=== PATIENT | male | born 1970 | race Caucasian/White ===

== ENCOUNTER → 2017-09-27 11:42 | Outpatient (CLI) | payer MEDICAID, SELFPAY ==
[2017-09-27 12:59] LABS: Microalbumin:Creatinine Ratio 404.8 mg/g CRE (<30 mg/g CRE)
[2017-09-27 13:22] LABS: Hemoglobin A1c 8.5 % (4.2-6.3)
[2017-09-27 13:31] LABS: AST(SGOT) 13 U/L (15-37); Alanine Aminotransfer ALT/SGPT 24 U/L (16-61); Albumin, Serum 4.1 g/dL (3.2-5.0); Alkaline Phosphatase 55 U/L (45-117); Anion Gap 11 (5-15); BUN 23 mg/dL (7-18); BUN/Creat Ratio 17.8 RATIO (10-20); Calcium,Total 9.4 mg/dL (8.5-10.1); Chloride 102 mmol/L (98-107); Cholesterol 158 mg/dL (200); Creatinine, Serum 1.29 mg/dL (0.70-1.30); EST Glomerular Filtration Rate 63 mL/min (>60); Est Glom Filt Rate - Afr Amer 76 mL/min (>60); Free T3 2.7 pg/mL (2.18-3.98); Globulin 4.3 g/dL (2.2-4.2); Glucose 221 mg/dL (70-110); High Density Lipoprotein 31 mg/dL; Potassium 4.4 mmol/L (3.5-5.1); Protein, Total 8.4 g/dL (6.4-8.2); Sodium Level 137 mmol/L (136-145); T4 Free Direct 0.69 ng/dL (0.76-1.46); Thyroid Stim Hormone (TSH) 0.44 uIU/mL (0.358-3.74); Triglycerides 477 mg/dL
== END ==
PROVIDERS: Family Provider Family Medicine; PCP Family Medicine; Visit Provider Nurse Practitioner
DX: E11.65 Type 2 diabetes mellitus with hyperglycemia (principal); E05.90 Thyrotoxicosis, unspecified without thyrotoxic crisis or storm; E78.1 Pure hyperglyceridemia; E78.00 Pure hypercholesterolemia, unspecified; E29.1 Testicular hypofunction
CPT/HCPCS: 36415; 80053; 80061; 82043; 82570; 83036; 84402; 84403; 84439; 84443; 84481

== ENCOUNTER → 2017-10-17 11:18 | Outpatient (CLI) | payer MEDICAID, SELFPAY ==
[2017-10-17 14:15] LABS: Basophil# 0.01 X10^3/uL; Differential Indicated SCAN CRITERIA MET; Eosinophil# 0.12 X10^3/uL; Hematocrit 33.5 % (40-54); Hemoglobin 11.6 g/dl (13.0-16.5); Mean Corp Hgb Conc 34.6 g/gl (32-36); Mean Corpuscular Hgb 30.6 pg (27.0-32.0); Mean Corpuscular Volume 88.4 fL (80-94); Mean Platelet Vol. 10.4 fl (6.2-12.0); Monocyte# 0.36 X10^3/uL; POSITIVE COUNT NO; POSITIVE DIFFERENTIAL NO; POSITIVE MORPHOLOGY YES; Platelet Count 188 K/mm3 (150-450); RBC Distribution Width CV 13.2 % (11.6-14.6); RBC Distribution Width SD 42.5 fl (35.1-43.9); Red Blood Count 3.79 M/mm3 (4.6-6.2); White Blood Count 5.8 K/mm3 (4.4-11.0)
[2017-10-17 14:50] LABS: Eosinophil 2 % (0-5); Lymphocyte 27 % (19-41); Monocyte 3 % (0-10); Neutrophil-Segmented 68 % (47-70); Platelet Estimate ADEQUATE (ADEQ); Total Cells Counted 100 (MANUAL DIFF); Vacuolated Cells 1+
[2017-10-17 14:51] LABS: Anisocytosis 1+; Red Cell Morphology N CHROM NORMAL (NORM C&C); Scan Smear per Review Criteria MANUAL DIFF
[2017-10-17 14:53] LABS: Absolute Lymphocyte Count 1.56 X10^3/ul (0.83-4.51); Absolute Neutrophil Count 3.9 X10^3/uL (2.0-7.7)
[2017-10-18 09:15] LABS: Pathologist Review Reviewed
== END ==
PROVIDERS: Family Provider Family Medicine; PCP Family Medicine; Visit Provider Family Medicine
DX: R56.9 Unspecified convulsions (principal)
CPT/HCPCS: 36415; 85025

== ENCOUNTER → 2017-10-19 10:25 | Outpatient (CLI) | payer MEDICAID, SELFPAY ==
[2017-10-22 12:06] LABS: Testosterone, Free 4.26 ng/dL (5.00-21.00)
[2017-10-23 11:21] LABS: Testosterone, % Free 3.28 % (1.50-4.20); Testosterone, Total 130 ng/dL (264-916)
== END ==
PROVIDERS: Family Provider Family Medicine; PCP Family Medicine; Visit Provider Nurse Practitioner
DX: E29.1 Testicular hypofunction (principal)
CPT/HCPCS: 84402; 84403

== ENCOUNTER → 2018-01-15 09:47 | Outpatient (CLI) | payer MEDICAID, SELFPAY ==
[2018-01-15 09:51] LABS: Bacteria 0 SEEN /hpf (None Seen); Mucous, Urine 0 SEEN /hpf (<or=2+); Red Blood Cells-Urine 0 SEEN /hpf (0-5); Squamous Epithelial Cells - UA 0 SEEN /hpf (0-5); White Blood Cells 0 SEEN /hpf (0-5)
[2018-01-15 12:19] LABS: Color, Urine Yellow (Yellow); Glucose, Dipstick Normal (Normal); Ketone-Dipstick Negative (Negative); Leukocyte Esterase-Dipstick Negative /ul (Negative); Nitrite-Dipstick Negative (Negative); Occult Blood-Urine 10 /ul (Negative); Protein-Dipstick 30 mg/dl (Negative); Specific Gravity, Urine 1.015 (1.002-1.030); Urine Bilirubin Dipstick Negative (Negative); Urine Clarity Clear (Clear); Urine Urobilinogen Normal (Normal)
[2018-01-15 12:22] LABS: Hemoglobin 13.1 g/dl (13.0-16.5); Mean Corp Hgb Conc 35.4 g/gl (32-36); Mean Corpuscular Hgb 30.7 pg (27.0-32.0); Mean Corpuscular Volume 86.7 fL (80-94); Platelet Count 215 K/mm3 (150-450); RBC Distribution Width CV 12.8 % (11.6-14.6); RBC Distribution Width SD 39.6 fl (35.1-43.9); Red Blood Count 4.27 M/mm3 (4.6-6.2)
[2018-01-15 12:38] LABS: Scan Indicated on CBC? Y/N NO
[2018-01-15 12:42] LABS: AST(SGOT) 12 U/L (15-37); Alanine Aminotransfer ALT/SGPT 20 U/L (16-61); Albumin, Serum 4.3 g/dL (3.2-5.0); Alkaline Phosphatase 57 U/L (45-117); Anion Gap 9 (5-15); BUN 19 mg/dL (7-18); Calcium,Total 9.4 mg/dL (8.5-10.1); Chloride 103 mmol/L (98-107); Cholesterol 186 mg/dL (200); Creatinine, Serum 1.27 mg/dL (0.70-1.30); EST Glomerular Filtration Rate 64 mL/min (>60); Est Glom Filt Rate - Afr Amer 77 mL/min (>60); Globulin 4.1 g/dL (2.2-4.2); Glucose 139 mg/dL (74-106); High Density Lipoprotein 33 mg/dL; Potassium 4.5 mmol/L (3.5-5.1); Protein, Total 8.4 g/dL (6.4-8.2); Sodium Level 137 mmol/L (136-145); Triglycerides 771 mg/dL
[2018-01-15 12:50] LABS: Carbamazepine (Tegretol) 11.6 ug/mL (4.0-12.0)
== END ==
PROVIDERS: Family Provider Family Medicine; PCP Family Medicine; Visit Provider Family Medicine
DX: I10 Essential (primary) hypertension (principal); E78.1 Pure hyperglyceridemia
CPT/HCPCS: 36415; 80053; 80061; 80156; 81001; 85027

== ENCOUNTER 2018-01-17 07:44 | Outpatient (RCR) | payer MEDICAID, SELFPAY ==
--- NOTE | 2018-01-18 17:05 | HP.FCE ---
HP OT Functional Capacity Eval - Reference Duration Sedentary Sedentary Light Light Light Medium Medium Medium Heavy Very Heavy Heavy Occasional (0-33% of day) Frequent (34-66% of day) Constant (67-100% of day) 10 # Negligible Negligible 15 # 8 # Negligible 20 # 10# Negli. 35 # 18 # 7 # 50 # 25 # 10 # 75 # 100 # >100 # 38 # 50 # >50 # 15 # 20 # >20 # - Patient Information Height: 5 ft 8 in Weight:: 96.615 kg Hand Dominance: Right Handed - Medical History Medical History Including Restrictions: trigeminal neuralgia, anemia, colon polyps, depression, diabetic, cholesterol, high BP, lumbago, chronic alcoholism, chronic pancreatitis, sebaceus cysts, elbow pain (R), neuropathy bilateral feet, colon CA - Diagnoses Diagnoses: trigeminal neuralgia, anemia, colon polyps, depression, diabetic, cholesterol, high BP, lumbago, chronic alcoholism, chronic pancreatitis, sebaceus cysts, elbow pain (R), neuropathy bilateral feet, colon CA - Symptoms Symptoms: Alvarez's Palsy Symptoms, distorted in face, blurriness in eyes (left especially), numbness L side of face, pain L side face, symptoms happen more with stress or not enough sleep. gets tired from anemia, R elbow pain, gets better after he does his arm exercises. L thumb pain no movement 3/10, with movement 8/10. - Pain Pain: According to pt, when trigeminal neuralgia takes place 10/10 pain face, pt down for about a week. Pain in R elbow 2/10. L thumb pain no movement 3/10, with movement 8/10. - Work History Work History: Currently unemployed. Has not worked since 2004. 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 - ADLS ADLS: Lives with mother, 1 story house, 3 steps to enter no handrail. Independent with AMB. Tub/shower combo, HHS, glass doors to get in/out of tub/shower, comfort height commode. Has bedside commode if needed. Independent with cooking, cleaning, sweeper, dust, mows riding mower. Independent with laundry, first floor setup. Drives. Gets Groceries uses cart and states has to pace himself. - Physical Examination ROM: BUE Limited horizontal abduction shoulders 110' when completed at the same time, horizontal abduction L shoulder only WFL, R shoulder only WFL, other BUE joints WFL all planes, BLE WFL. Strength: BUE R 3+/5, L 4/5, BLE 4/5 Right Typesetting Machine Operator/Tender Strength Average: 61.66 Left Typesetting Machine Operator/Tender Strength Average: 70.00 Right Lateral Pinch Average: 14.66 Left Lateral Pinch Average: 12.66 Right Tripod Pinch Average: 12.00 Left Tripod Pinch Average: 7.33 Sensation: Pt states tingling L thumb, bilateral feet numb all the time. Fine Motor: Occassionally has difficulty with buttoning small buttons pending on how his L thumb feels. Independent with writing, self feeding, and other fine motor tasks. Balance: Pt slightly unsteady with standing balance when walking. Loss of balance when standing on one foot easily. Demonstrated good righting reactions to L and R side and forward, did have to take step back when challenged with balance pushing backwards. - Non Material Handling Activities Bending: able to complete 5 bends down to toes and up with 2 losses of balance he was able to correct on his own. Unable to complete anymore secondary to dizziness. Squatting: Pt able to complete 8 squats, shakey in knees, unable to complete any more secondary to pt stated knees are going to give out. Had to hold onto table occassionally while completing squats for support. Kneeling: Pt able to complete 7 half kneels, unable to go all the way down secondary to pain in knees, 9/10 R leg, 7/10 L leg with movement. Used table on L side to help support himself during task. Reaching out/up: Pt able to reach out and up without any loss of balance. Walking: Pt able to complete 15 minute walking test around facility slow pace, occassionally unsteady. Pt stated dizzy after walk and feet tingling like crazy. Pt states occassionally feels like R knee is unstable and gives out. Standing: No sitting required during walk test. Sitting: Pt able to sit for 33 minutes before being asked to stand for evaluation without demo of pain Climbing Stairs: Pt able to climb a flight 10 steps up/down using bilateral handrails. - Dynamic Occasional Lifting Capacity Floor Lift: completed 15# max per pt Knee Lift: completed 15# max per pt Waist Lift: completed 15# max per pt Shoulder Lift: completed 15# max per pt Overhead Lift: able to lift 15# up 90', able to lift 4# box overhead max per pt Carrying: carries 15# max 20 feet Comments: According to functional activities questionnaire pt stated no i don't exercise regularly, yes I can do yard work if I pace myself and do it over the course of the day. I can sit through a movie, play or concert, I can walk around in my yard and around the block at my own pace. I am able to shop for groceries. I am able to coarry my groceries into the hosue and pout them away. I am able to do to do laundry. No I can not walk up and down the steps. I am able to cook and do housework. I am able to bath, feed and dress myself. I can drive or ride in a car for 2-3 hrs before i need to stretch. I can walk at a mall, fair or event for 1 hr before I have to sit down. I usually sit fo 1.5 to 3 hrs a day. I ususally stand/walk for 2hrs a day. I usually lie/recline for 4/6 hrs a day. My most comfortable position is lying down.
== END 2018-01-17 19:00 | disposition home or self-care (01) ==
LOC: OT 07:44
PROVIDERS: Family Provider Family Medicine; PCP Family Medicine; Visit Provider Family Medicine
DX: E11.40 Type 2 diabetes mellitus with diabetic neuropathy, unspecified (principal)
CPT/HCPCS: 97165

== ENCOUNTER → 2018-04-24 06:55 | Outpatient (CLI) | payer MEDICAID, SELFPAY ==
[2018-04-24 07:39] LABS: Basophil# 0.02 X10^3/uL; Basophil% 0.3 % (0-1); Eosinophil# 0.09 X10^3/uL; Eosinophils% 1.3 % (0-5); Hematocrit 34.6 % (40-54); Hemoglobin 11.8 g/dl (13.0-16.5); Mean Corp Hgb Conc 34.1 g/gl (32-36); Mean Corpuscular Hgb 30.6 pg (27.0-32.0); Mean Corpuscular Volume 89.6 fL (80-94); Mean Platelet Vol. 10.2 fl (6.2-12.0); Monocyte# 0.35 X10^3/uL; Monocyte% 5.1 % (0-10); Neutrophil # 3.98 X10^3/uL (2.7-7.7); Platelet Count 221 K/mm3 (150-450); RBC Distribution Width CV 13.1 % (11.6-14.6); RBC Distribution Width SD 42.2 fl (35.1-43.9); Red Blood Count 3.86 M/mm3 (4.6-6.2); White Blood Count 6.9 K/mm3 (4.4-11.0)
[2018-04-24 07:42] LABS: POSITIVE COUNT NO; POSITIVE DIFFERENTIAL NO; POSITIVE MORPHOLOGY NO
[2018-04-24 08:00] LABS: AST(SGOT) 10 U/L (15-37); Alanine Aminotransfer ALT/SGPT 21 U/L (16-61); Albumin, Serum 3.9 g/dL (3.2-5.0); Alkaline Phosphatase 39 U/L (45-117); Anion Gap 10 (5-15); BUN 21 mg/dL (7-18); BUN/Creat Ratio 14.3 RATIO (10-20); Calcium,Total 9.2 mg/dL (8.5-10.1); Chloride 101 mmol/L (98-107); Creatinine, Serum 1.47 mg/dL (0.70-1.30); EST Glomerular Filtration Rate 54 mL/min (>60); Est Glom Filt Rate - Afr Amer 65 mL/min (>60); Glucose 299 mg/dL (74-106); Potassium 4.2 mmol/L (3.5-5.1); Protein, Total 7.9 g/dL (6.4-8.2); Sodium Level 137 mmol/L (136-145)
[2018-04-25 11:24] LABS: Carcinoembryonic Antigen 1.6 ng/mL (0.0-4.7)
== END ==
PROVIDERS: Family Provider Family Medicine; PCP Family Medicine; Visit Provider Nurse Practitioner Family
DX: D64.9 Anemia, unspecified (principal); Z85.038 Personal history of other malignant neoplasm of large intestine
CPT/HCPCS: 71260; 74177; 80053; 82378; 85025; Q9967; A4216

== ENCOUNTER → 2018-05-30 10:23 | Outpatient (CLI) | payer MEDICAID, SELFPAY ==
[2018-05-30 10:59] LABS: Absolute Lymphocyte Count 1.94 X10^3/ul (0.83-4.51); Absolute Neutrophil Count 3.6 X10^3/uL (2.0-7.7); Basophil# 0.02 X10^3/uL; Basophil% 0.3 % (0-1); Eosinophil# 0.08 X10^3/uL; Eosinophils% 1.3 % (0-5); Hematocrit 36.4 % (40-54); Hemoglobin 12.6 g/dl (13.0-16.5); Lymphocyte # 1.94 X10^3/ul (4.0); Lymphocyte % 32.3 % (19-41); Mean Corp Hgb Conc 34.6 g/gl (32-36); Mean Corpuscular Hgb 30.3 pg (27.0-32.0); Mean Corpuscular Volume 87.5 fL (80-94); Mean Platelet Vol. 9.9 fl (6.2-12.0); Monocyte# 0.38 X10^3/uL; Monocyte% 6.3 % (0-10); Neutrophil # 3.56 X10^3/uL (2.7-7.7); Neutrophil % 59.5 % (47-70); Platelet Count 175 K/mm3 (150-450); RBC Distribution Width CV 12.8 % (11.6-14.6); Red Blood Count 4.16 M/mm3 (4.6-6.2)
[2018-05-30 11:00] LABS: POSITIVE COUNT NO; POSITIVE DIFFERENTIAL NO; POSITIVE MORPHOLOGY NO
[2018-05-30 11:23] LABS: Carbamazepine (Tegretol) 11.5 ug/mL (4.0-12.0)
[2018-05-30 11:36] LABS: ALB/GLOB Ratio 0.9 RATIO (0.9-2.4); AST(SGOT) 18 U/L (15-37); Alanine Aminotransfer ALT/SGPT 32 U/L (16-61); Albumin, Serum 3.7 g/dL (3.2-5.0); Alkaline Phosphatase 38 U/L (45-117); Anion Gap 8 (5-15); BUN 22 mg/dL (7-18); BUN/Creat Ratio 16.1 RATIO (10-20); Calcium,Total 9.4 mg/dL (8.5-10.1); Chloride 101 mmol/L (98-107); Cholesterol 190 mg/dL (200); Creatinine, Serum 1.37 mg/dL (0.70-1.30); EST Glomerular Filtration Rate 59 mL/min (>60); Est Glom Filt Rate - Afr Amer 71 mL/min (>60); Glucose 212 mg/dL (74-106); High Density Lipoprotein 27 mg/dL; Potassium 4.6 mmol/L (3.5-5.1); Protein, Total 7.7 g/dL (6.4-8.2); Sodium Level 135 mmol/L (136-145); T4 Free Direct 0.72 ng/dL (0.76-1.46); Thyroid Stim Hormone (TSH) 0.44 uIU/mL (0.358-3.74); Triglycerides 1083 mg/dL
== END ==
PROVIDERS: Family Provider Family Medicine; PCP Family Medicine; Referring Provider Family Medicine; Visit Provider Family Medicine
DX: R79.89 Other specified abnormal findings of blood chemistry (principal); R56.9 Unspecified convulsions; E78.5 Hyperlipidemia, unspecified; R80.9 Proteinuria, unspecified; I10 Essential (primary) hypertension
CPT/HCPCS: 36415; 80053; 80061; 80156; 82043; 82570; 84439; 84443; 85025

== ENCOUNTER 2018-07-27 11:30 | Outpatient (RCR) | payer MEDICAID, SELFPAY | END 2018-07-27 23:59 | LOC: NS 11:30 | PROVIDERS: Family Provider Family Medicine; PCP Family Medicine; Visit Provider Nurse Practitioner | DX: E66.9 Obesity, unspecified (principal); Z68.31 Body mass index [BMI] 31.0-31.9, adult; E11.65 Type 2 diabetes mellitus with hyperglycemia; Z71.3 Dietary counseling and surveillance | CPT/HCPCS: 97803 ==

== ENCOUNTER → 2018-08-10 07:35 | Outpatient (CLI) | payer MEDICAID, SELFPAY ==
[2018-08-09 11:15] VITALS: BMI 33.3
[2018-08-10 10:38] LABS: Hemoglobin A1c 9.1 % (4.2-6.3)
[2018-08-10 10:43] LABS: AST(SGOT) 15 U/L (15-37); Alanine Aminotransfer ALT/SGPT 27 U/L (16-61); Alkaline Phosphatase 42 U/L (45-117); Anion Gap 9 (5-15); BUN 36 mg/dL (7-18); BUN/Creat Ratio 20.9 RATIO (10-20); Calcium,Total 9.5 mg/dL (8.5-10.1); Chloride 102 mmol/L (98-107); Cholesterol 114 mg/dL (200); Creatinine, Serum 1.72 mg/dL (0.70-1.30); EST Glomerular Filtration Rate 45 mL/min (>60); Est Glom Filt Rate - Afr Amer 54 mL/min (>60); Glucose 133 mg/dL (74-106); High Density Lipoprotein 35 mg/dL; Potassium 4.7 mmol/L (3.5-5.1); Sodium Level 137 mmol/L (136-145); Triglycerides 197 mg/dL; Very Low Density Lipoprotein 39 mg/dL (5-40)
[2018-08-13 10:33] LABS: Testosterone, Total > 1500 ng/dL (264-916)
--- OUTSIDE RECORDS SUMMARY | 2018-09-25 19:17 | XMS RPT_ITS ---
:1970 Author Organization OHIP Support Name Relationship Address Phone D Unavailable Unavailable Unavailable DAVID HUFFMAN Unavailable [address] + [place] [address] D Unavailable Unavailable Unavailable DAVID HUFFMAN Unavailable [address] + [place] [address] D Unavailable Unavailable Unavailable DAVID HUFFMAN Unavailable [address] + [place] [address] D Unavailable Unavailable Unavailable DAVID HUFFMAN Unavailable [address] + [place] [address] D Unavailable Unavailable Unavailable DAVID HUFFMAN Unavailable [address] + [place] [address] D Unavailable Unavailable Unavailable DAVID HUFFMAN Unavailable [address] + [place] [address] D Unavailable Unavailable Unavailable DAVID HUFFMAN Unavailable [address] + [place] [address] D Unavailable Unavailable Unavailable DAVID HUFFMAN Unavailable [address] + [place] [address] D Unavailable Unavailable Unavailable DAVID HUFFMAN Unavailable [address] + [place] [address] D Unavailable Unavailable Unavailable DAVID HUFFMAN Unavailable [address] + [place] [address] D Unavailable Unavailable Unavailable DAVID HUFFMAN Unavailable [address] + [place] [address] D Unavailable Unavailable Unavailable DAVID HUFFMAN Unavailable [address] + [place] [address] D Unavailable Unavailable Unavailable DAVID UHFFMAN Unavailable [address] + [place] [address] D Unavailable Unavailable Unavailable DAVID HUFFMAN Unavailable [address] + [place] [address] D Unavailable Unavailable Unavailable DAVID HUFFMAN Unavailable [address] + [place] [address] D Unavailable Unavailable Unavailable DAVID HUFFMAN Unavailable [address] + [place] [address] D Unavailable Unavailable Unavailable DAVID HUFFMAN Unavailable [address] + [place] [address] D Unavailable Unavailable Unavailable DAVID HUFFMAN Unavailable [address] + [place] [address] D Unavailable Unavailable Unavailable DAVID HUFFMAN Unavailable [address] + [place] [address] D Unavailable Unavailable Unavailable DAVID HUFFMAN Unavailable [address] + [place] [address] D Unavailable Unavailable Unavailable DAVID HUFFMAN Unavailable [address] + [place] [address] D Unavailable Unavailable Unavailable DAVID HUFFMAN Unavailable [address] + [place] [address] D Unavailable Unavailable Unavailable DAVID HUFFMAN Unavailable [address] + [place] [address] D Unavailable Unavailable Unavailable DAVID HUFFMAN Unavailable [address] + [place] [address] D Unavailable Unavailable Unavailable DAVID HUFFMAN Unavailable [address] + [place] [address] D Unavailable Unavailable Unavailable DAVID HUFFMAN Unavailable [address] + [place] [address] D Unavailable Unavailable Unavailable DAVID HUFFMAN Unavailable [address] + [place] [address] D Unavailable Unavailable Unavailable DAVID HUFFMAN Unavailable [address] + [place] [address] D Unavailable Unavailable Unavailable DAVID HUFFMAN Unavailable [address] + [place] [address] D Unavailable Unavailable Unavailable DAVID HUFFMAN Unavailable [address] + [place] [address] D Unavailable Unavailable Unavailable DAVID HUFFMAN Unavailable [address] + [place] [address] D Unavailable Unavailable Unavailable DAVID HUFFMAN Unavailable [address] + [place] [address] D Unavailable Unavailable Unavailable DAVID HUFFMAN Unavailable [address] + [place] [address] D Unavailable Unavailable Unavailable DAVID HUFFMAN Unavailable [address] + [place] [address] D Unavailable Unavailable Unavailable DAVID HUFFMAN Unavailable [address] + [place] [address] D Unavailable Unavailable Unavailable DAVID HUFFMAN Unavailable [address] + [place] [address] D Unavailable Unavailable Unavailable DAVID HUFFMAN Unavailable [address] + [place] [address] D Unavailable Unavailable Unavailable DAVID HUFFMAN Unavailable [address] + [place] [address] D Unavailable Unavailable Unavailable DAVID HUFFMAN Unavailable [address] + [place] [address] D Unavailable Unavailable Unavailable DAVID HUFFMAN Unavailable [address] + [place] [address] D Unavailable Unavailable Unavailable DAVID HUFFMAN Unavailable [address] + [place] [address] D Unavailable Unavailable Unavailable DAVID HUFFMAN Unavailable [address] + [place] [address] D Unavailable Unavailable Unavailable DAVID HUFFMAN Unavailable [address] + [place] [address] D Unavailable Unavailable Unavailable DAVID HUFFMAN Unavailable [address] + [place] [address] Care Team Providers Name Role Phone Scarlett RickettsC Attending Unavailable Nicolas Santos Referring Unavailable Nicolas Santos Primary Care Unavailable Scarlett Ricketts NP-C Attending Unavailable Nicolas Santos Referring Unavailable Jimmie Ibarra Attending Unavailable Chriss Zhong Primary Care Unavailable Chriss Zhong Referring Unavailable Jimmie Ibarra Attending Unavailable Nicolas Santos Primary Care Unavailable Nicolas Santos Referring Unavailable Scarlett Ricketts GLOVE PARTS INSPECTOR-C Attending Unavailable Scarlett Ricketts NP-Abram Referring Unavailable Nicolas Santos Primary Care Unavailable Shook, Scarlett J GLOVE PARTS INSPECTOR-C Attending Unavailable Nicolas Santos Referring Unavailable Scarlett Ricketts GLOVE PARTS INSPECTOR-C Attending Unavailable Nicolas Santos Referring Unavailable Nicolas Santos Attending Unavailable Nicolas Santos Referring Unavailable Nicolas Santos Primary Care Unavailable ShannanMaureen card Attending Unavailable Chriss Zhong Primary Care Unavailable Jimmie Ibarra Consulting Unavailable Scarlett Ricketts GLOVE PARTS INSPECTOR-C Attending Unavailable Chriss Zhong Primary Care Unavailable Scarlett Ricketts GLOVE PARTS INSPECTOR-C Attending Unavailable Nicolas Santos Referring Unavailable Chriss Zhong Referring Unavailable Scarlett Ricketts GLOVE PARTS INSPECTOR-C Attending Unavailable Nurse, Standard Attending Unavailable Chriss Zhong Referring Unavailable Nurse, Standard Attending Unavailable Nicolas Santos Referring Unavailable Nicolas Santos Attending Unavailable Nicolas Santos Referring Unavailable SchNicolas english Primary Care Unavailable Nicolas Santos Attending Unavailable Nicolas Santos Referring Unavailable SchNicolas english Primary Care Unavailable Scarlett Ricketts GLOVE PARTS INSPECTOR-C Attending Unavailable Scarlett Ricketts GLOVE PARTS INSPECTOR-C Attending Unavailable Nicolas Santos Referring Unavailable Nicolas Santos Primary Care Unavailable Lilian Ocasio Attending Unavailable Scarlett Ricketts NP-Abram Attending Unavailable Nicolas Santos Referring Unavailable Nurse, Standard Attending Unavailable Nicolas Santos Referring Unavailable Nurse, Standard Attending Unavailable Nicolas Santos Referring Unavailable Nurse, Standard Attending Unavailable Nicolas Santos Referring Unavailable Nurse, Standard Attending Unavailable Nicloas Santos Referring Unavailable Shannan, Maureen Attending Unavailable Maureen Campbell Referring Unavailable Nicolas Santos Primary Care Unavailable Nurse, Standard Attending Unavailable Scarlett Ricketts GLOVE PARTS INSPECTOR-C Attending Unavailable Scarlett Ricketts GLOVE PARTS INSPECTORNicole Referring Unavailable Nicolas Santos Primary Care Unavailable Scarlett Ricketts GLOVE PARTS INSPECTOR-C Attending Unavailable Nicolas Santos Referring Unavailable Scarlett Ricketts GLOVE PARTS INSPECTOR-Abram Attending Unavailable Scarlett Ricketts GLOVE PARTS INSPECTORNicole Referring Unavailable Nicolas Santos Primary Care Unavailable Nurse, Standard Attending Unavailable Chriss Zhong Referring Unavailable Scarlett Ricketts NP-C Attending Unavailable Nicolas Santos Primary Care Unavailable Nurse, Standard Attending Unavailable Chriss Zhong Referring Unavailable Jimmie Ibarra Attending Unavailable TrevinChriss Primary Care Unavailable Jimmie Ibarra Consulting Unavailable Chriss Zhong Referring Unavailable Nurse, Standard Attending Unavailable Nicolas Santos Referring Unavailable Scarlett Ricketts GLOVE PARTS INSPECTOR-C Attending Unavailable [place], Chriss Referring Unavailable Scarlett Ricketts GLOVE PARTS INSPECTOR-C Attending Unavailable Nicolas Santos Referring Unavailable SchNicolas english Attending Unavailable SchNicolas english Referring Unavailable Nicolas Santos Primary Care Unavailable Scarlett Ricketts GLOVE PARTS INSPECTOR-C Attending Unavailable [place], Chriss Referring Unavailable Nurse, Standard Attending Unavailable Trevin, Chriss Referring Unavailable Nurse, Standard Attending Unavailable Trevin, Chriss Referring Unavailable Scarlett Ricketts GLOVE PARTS INSPECTOR-C Attending Unavailable Nicolas Santos Primary Care Unavailable Nurse, Standard Attending Unavailable [place], Chriss Referring Unavailable Nurse, Standard Attending Unavailable Trevin, Chriss Referring Unavailable Scarlett Ricketts GLOVE PARTS INSPECTOR-C Attending Unavailable Nicolas Santos Primary Care Unavailable PROBLEMS PROBLEMS DATE TYPE CONDITION / CODE ATTENDING STATUS SOURCE 09/14/2018 Unknown E66.9 - Obesity, Scarlett Ricketts unspecified / GLOVE PARTS INSPECTOR-C Community E66.9(ICD-10) Hospital Repository 08/23/2018 Unknown 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 / Z85.038(ICD-10) 08/14/2018 Unknown R79.89 - Other Scarlett Ricketts specified GLOVE PARTS INSPECTOR-C Community abnormal findings [facility] blood Repository chemistry / R79.89(ICD-10) 04/24/2018 Unknown D64.9 - Anemia, Shannan, Maureen [facility] [place] unspecified / Community D64.9(ICD-10) Hospital Repository 04/24/2018 Unknown Z45.2 - Encounter Jimmie Ibarra for adjustment Community and management of Hospital vascular access Repository device / Z45.2(ICD-10) 04/25/2018 Unknown E11.40 - Type 2 Nicolas Santos diabetes mellitus E Community with diabetic Hospital neuropathy, Repository unspecified / E11.40(ICD-10) PROCEDURES PROCEDURES No Procedure Records FoundRESULTS RESULTS OFFICE VISIT REPORT Observed: 09/06/2018 Status: F Source: [place] 2:50 PM [facility] REPOSITORY [facility] 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 Accompanied by: Self Allergies erythromycin base Adverse Reaction (Severe, Verified 09/06/18 09:06) Hives loratadine [From Claritin] Adverse Reaction (Severe, Verified 09/06/18 09:06) Rash Medications Cholecalciferol (Vitamin D3) [Vitamin D3] 1,000 unit PO DAILY 10/10/13 [History Confirmed 09/06/18] Ferrous Fumarate [Iron] 18 mg PO DAILY 10/10/13 [History Confirmed 09/06/18] Lisinopril [Zestril] 20 mg PO BID 10/10/13 [History Confirmed 09/06/18] Ascorbic Acid [Vitamin C] 500 mg PO DAILY@0800 07/18/14 [History Confirmed 09/06/18] Sertraline HCl [Zoloft] 100 mg PO DAILY 07/18/14 [History Confirmed 09/06/18] Multivitamins,Therapeutic [Multivitamin] 1 tab PO DAILY 10/21/14 [History Confirmed 09/06/18] Carbamazepine [Tegretol] 400 mg PO TID 12/30/14 [History Confirmed 09/06/18] Cyanocobalamin [Vitamin B12] 500 mcg PO DAILY@0800 11/24/16 [History Confirmed 09/06/18] Rosuvastatin Calcium [Crestor] 40 mg PO DAILY 11/24/16 [History Confirmed 09/06/18] Vitamin E 1,000 unit PO DAILY 11/24/16 [History Confirmed 09/06/18] Basaglar KwikPen U-100 Insulin 100 unit/mL (3 mL) subcutaneous See Rx Instructions SC QHS #60 ml NS 10/05/17 [Rx Confirmed 09/06/18] Fenofibrate Nanocrystallized [Triglide] 160 mg PO DAILY 10/19/17 [History Confirmed 09/06/18] Humalog KwikPen (U- 100) Insulin 100 unit/mL subcutaneous 33 unit SC TID #45 ml NS 11/13/17 [Rx Confirmed 09/06/18] aripiprazole 2 mg tablet 2 mg PO QDAY 02/14/18 [History Confirmed 09/06/18] atenolol 50 mg tablet 50 mg PO BID tab 02/14/18 [History Confirmed 09/06/18] Admelog SoloStar U- 100 Insulin lispro 100 unit/mL subcutaneous pen 33 unit SC TID #90 ml NS 04/12/18 [Rx Confirmed 09/06/18] alcohol swabs 4 pad TOPICAL .daily #100 ea 04/17/18 [Rx Confirmed 09/06/18] Blood Sugar Diagnostic [FreeStyle Lite Strips] 1 strip SQ .MEDSUPPLY 05/01/18 [History Confirmed 09/06/18] Lancets 1 lancet SQ 4X/DAY 05/01/18 [History Confirmed 09/06/18] Pen Needle, Diabetic [Unifine Pentips Plus] 1 ea SQ 4X/DAY 05/01/18 [History Confirmed 09/06/18] Syringe, Disposable, 3 ml [Luer-Jurgen Syringe] 1 syringe SQ 4X/DAY 05/01/18 [History Confirmed 09/06/18] syringe with needle, safety 3 mL 25 gauge x 1 See Dose Instructions .ROUTE .MEDSUPPLY #2 ea 09/06/18 [Rx Confirmed 09/06/18] testosterone cypionate 200 mg/mL intramuscular oil 200 mg IM Q2W #1 ml 09/06/18 [Rx Confirmed 09/06/18] Office Procedures Injections testosterone cyp: Procedure performed by: Jyoti Marshall Site of injection: left gluteal IM Dose of injection: 200mg/1ml lot # [id number] exp : 08/16 mfg : hospira Comments: pt tolerated well Assessment AND Plan Medications New: syringe with needle, safety (BD Integra Syuse to inject testosterone q 2 weeks 2 ea R79.89 ringmarvin) 11RF Refilled: 09/06/18 1450 <Electronically signed by Scarlett VALENTINE> Date Scarlett VALENTINE Cosigner Signature: Date (if applicable) CC: OFFICE VISIT REPORT Observed: 09/05/2018 Status: F Source: [place] 8:27 AM [facility] [address] [address] OFFICE VISIT Date of Service: 08/23/18 MR#: [id number] Acct: [id number] Patient: REGINALDO HUFFMAN Rep #: [id number] : 1970 Provider: Standard Nurse, RN Age/Sex: 47/M [place] [facility] [place]: Signed Intake Vital Signs08/23/18 Height 5 ft 8 in 08/23/18 Weight: 207 lb 6 oz Intake Visit 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 Accompanied by: Self Allergies erythromycin base Adverse Reaction (Severe, Verified 08/14/18 11:09) Hives loratadine [From Claritin] Adverse Reaction (Severe, Verified 08/14/18 11:09) Rash Medications Cholecalciferol (Vitamin D3) [Vitamin D3] 1,000 unit PO DAILY 10/10/13 [History Confirmed 08/14/18] Ferrous Fumarate [Iron] 18 mg PO DAILY 10/10/13 [History Confirmed 08/14/18] Lisinopril [Zestril] 20 mg PO BID 10/10/13 [History Confirmed 08/14/18] Ascorbic Acid [Vitamin C] 500 mg PO DAILY@0800 07/18/14 [History Confirmed 08/14/18] Sertraline HCl [Zoloft] 100 mg PO DAILY 07/18/14 [History Confirmed 08/14/18] Multivitamins,Therapeutic [Multivitamin] 1 tab PO DAILY 10/21/14 [History Confirmed 08/14/18] Carbamazepine [Tegretol] 400 mg PO TID 12/30/14 [History Confirmed 08/14/18] Cyanocobalamin [Vitamin B12] 500 mcg PO DAILY@0800 11/24/16 [History Confirmed 08/14/18] Rosuvastatin Calcium [Crestor] 40 mg PO DAILY 11/24/16 [History Confirmed 08/14/18] Vitamin E 1,000 unit PO DAILY 11/24/16 [History Confirmed 08/14/18] Basaglar KwikPen U-100 Insulin 100 unit/mL (3 mL) subcutaneous See Rx Instructions SC QHS #60 ml NS 10/05/17 [Rx Confirmed 08/14/18] Fenofibrate Nanocrystallized [Triglide] 160 mg PO DAILY 10/19/17 [History Confirmed 08/14/18] Humalog KwikPen (U- 100) Insulin 100 unit/mL subcutaneous 33 unit SC TID #45 ml NS 11/13/17 [Rx Confirmed 08/14/18] aripiprazole 2 mg tablet 2 mg PO QDAY 02/14/18 [History Confirmed 08/14/18] atenolol 50 mg tablet 50 mg PO BID tab 02/14/18 [History Confirmed 08/14/18] Admelog SoloStar U- 100 Insulin lispro 100 unit/mL subcutaneous pen 33 unit SC TID #90 ml NS 04/12/18 [Rx Confirmed 08/14/18] alcohol swabs 4 pad TOPICAL .daily #100 ea 04/17/18 [Rx Confirmed 08/14/18] Blood Sugar Diagnostic [FreeStyle Lite Strips] 1 strip SQ .MEDSUPPLY 05/01/18 [History Confirmed 08/14/18] Lancets 1 lancet SQ 4X/DAY 05/01/18 [History Confirmed 08/14/18] Pen Needle, Diabetic [Unifine Pentips Plus] 1 ea SQ 4X/DAY 05/01/18 [History Confirmed 08/14/18] Syringe, Disposable, 3 ml [Luer-Jurgen Syringe] 1 syringe SQ 4X/DAY 05/01/18 [History Confirmed 08/14/18] testosterone cypionate 200 mg/mL intramuscular oil 200 mg IM Q2W #1 ml 06/14/18 [Rx Confirmed 08/14/18] Office Procedures Injections testosterone cyp: Procedure performed by: Jyoti Marshall Site of injection: right gluteal IM Dose of injection: 200mg/1ml lot # [id number] exp : 07/2020 mfg : hospira/pfizer Comments: pt tolerated with no c/o 09/05/18826 <Electronically signed by Scarlett VALENTINE> Date Scarlett Nugenter Signature: Date (if applicable) CC: OFFICE VISIT REPORT Observed: 08/27/2018 Status: F Source: [place] 2:19 PM [id number] [place] [address] OFFICE VISIT Date of Service: 08/09/18 MR#: [id number] Acct: [id number] Patient: REGINALDO HUFFMAN Rep #: [id number] : 1970 Provider: Alex Nurse RN Age/Sex: 47/M [place] [facility] [place]: Signed Intake Vital Signs08/09/18 Height 5 ft 8 in 08/09/18 Weight: 210 lb 2 oz 08/09/18 Body Mass Index (BMI) 31.9 08/09/18 Blood Pressure 119/82 H 08/09/18 Blood Pressure Location Rt popliteal 08/09/18 Blood Pressure Position Sitting Intake Visit 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 Accompanied by: Self Allergies erythromycin base Adverse Reaction (Severe, Verified 08/14/18 11:09) Hives loratadine [From Claritin] Adverse Reaction (Severe, Verified 08/14/18 11:09) Rash Medications Cholecalciferol (Vitamin D3) [Vitamin D3] 1,000 unit PO DAILY 10/10/13 [History Confirmed 08/14/18] Ferrous Fumarate [Iron] 18 mg PO DAILY 10/10/13 [History Confirmed 08/14/18] Lisinopril [Zestril] 20 mg PO BID 10/10/13 [History Confirmed 08/14/18] Ascorbic Acid [Vitamin C] 500 mg PO DAILY@0800 07/18/14 [History Confirmed 08/14/18] Sertraline HCl [Zoloft] 100 mg PO DAILY 07/18/14 [History Confirmed 08/14/18] Multivitamins,Therapeutic [Multivitamin] 1 tab PO DAILY 10/21/14 [History Confirmed 08/14/18] Carbamazepine [Tegretol] 400 mg PO TID 12/30/14 [History Confirmed 08/14/18] Cyanocobalamin [Vitamin B12] 500 mcg PO DAILY@0800 11/24/16 [History Confirmed 08/14/18] Rosuvastatin Calcium [Crestor] 40 mg PO DAILY 11/24/16 [History Confirmed 08/14/18] Vitamin E 1,000 unit PO DAILY 11/24/16 [History Confirmed 08/14/18] Basaglar KwikPen U-100 Insulin 100 unit/mL (3 mL) subcutaneous See Rx Instructions SC QHS #60 ml NS 10/05/17 [Rx Confirmed 08/14/18] Fenofibrate Nanocrystallized [Triglide] 160 mg PO DAILY 10/19/17 [History Confirmed 08/14/18] Humalog KwikPen (U- 100) Insulin 100 unit/mL subcutaneous 33 unit SC TID #45 ml NS 11/13/17 [Rx Confirmed 08/14/18] aripiprazole 2 mg tablet 2 mg PO QDAY 02/14/18 [History Confirmed 08/14/18] atenolol 50 mg tablet 50 mg PO BID tab 02/14/18 [History Confirmed 08/14/18] Admelog SoloStar U- 100 Insulin lispro 100 unit/mL subcutaneous pen 33 unit SC TID #90 ml NS 04/12/18 [Rx Confirmed 08/14/18] alcohol swabs 4 pad TOPICAL .daily #100 ea 04/17/18 [Rx Confirmed 08/14/18] Blood Sugar Diagnostic [FreeStyle Lite Strips] 1 strip SQ .MEDSUPPLY 05/01/18 [History Confirmed 08/14/18] Lancets 1 lancet SQ 4X/DAY 05/01/18 [History Confirmed 08/14/18] Pen Needle, Diabetic [Unifine Pentips Plus] 1 ea SQ 4X/DAY 05/01/18 [History Confirmed 08/14/18] Syringe, Disposable, 3 ml [Luer-Jurgen Syringe] 1 syringe SQ 4X/DAY 05/01/18 [History Confirmed 08/14/18] testosterone cypionate 200 mg/mL intramuscular oil 200 mg IM Q2W #1 ml 06/14/18 [Rx Confirmed 08/14/18] Office Procedures Injections testosterone cyp: Procedure performed by: Jyoti Marshall Site of injection: left gluteal IM Dose of injection: 200mg/ml lot # [id number] exp 07/2020 mfg : hospira Comments: pt tolerated well Assessment AND Plan Orders Orders: 08/27/18 1419 <Electronically signed by Scarlett VALENTINE> Date Scarlett VALENTINE Cosigner Signature: Date (if applicable) CC: VITAMIN D,25 HYDROXY Collected: 08/22/2018 Status: F Source: [place] 8:37 AM [facility] [place] REPOSITORY TYPE CODE TESTS RESULT OUT OF REFERENCE UNITS RANGE LAB L506.1000 29.95-100.01 ng/mL Low Vitamin D 16.8 25-OH Result Comment: Vitamin D 25(OH) Status Range Deficiency <20 ng/mL (50nmol/L) Insuffciency 20 - 30 ng/mL (50 - 75 nmol/L) Sufficiency 30 - 100 ng/mL (75 - 250 nmol/L) Toxicity >100 ng/mL (>250 nmol/L) Performed By: #### L506.1000 #### [facility] [place], [address] TESTOSTERONE, TOTAL / Collected: 08/22/2018 Status: F Source: [place] FREE 8:37 AM [facility] REPOSITORY Order Comment: Has Patient had X-rays with Contrast this admission? N TYPE CODE TESTS RESULT OUT OF RANGE REFERENCE UNITS LAB L3100.5320 264-916 ng/dL Normal 359 TESTOSTER,TO CASEY Result Comment: Adult male reference interval is based on a population of healthy nonobese males (BMI <30) between 19 and 39 years old. andreea Martin.al. JCEM 2017,102;1194-9640. PMID: [id number]. LAB L3100.5340 5.00-21.00 ng/dL TESTOSTER,FREE Normal 10.95 LAB L3100.5360 1.50-4.20 % TESTOSTER %FREE Normal 3.05 Result Comment: Performed at: - [facility] [address] [id number] Animal Care Attendant: Bradley Peña PhD, Phone: [phone] Performed at: - [facility] [address] [id number] Animal Care Attendant: Opal Arnold MD, Phone: [phone] Performed By: #### L3100.5310 #### [facility] (refer to report for specific site) refer to report for address and phone number ENDOCRINOLOGY VISIT Observed: 08/15/2018 Status: F Source: [place] REPORT 8:14 AM [facility] REPOSITORY [facility]. [address] [place] [address] OFFICE VISIT Date of Service: 08/14/18 MR#: [id number] Acct: [id number] Name: REGINALDO HUFFMAN Rep #: [id number] : 1970 Provider: Scarlett Ricketts NP Age/Sex: 47/M [place] [facility] [place]: Signed HPI History of present illness Reginaldo Huffman s a 47 year old male who presents for follow up of diabetes type 2, Diagnosed in 2002. Previously on U-500 insulin but reports it did not work well for him. He is currently taking Lantus 50 units in the am and 45 in the pm. Meal insulin is 25 units humalog. He brings BG written down on paper. Checking BG consistently.Recently doing well with BG readings following inclusion in why weight program and having access to [employer] for exercise. Reports he is working out 5 days weekly. BG readings currently in significantly improved range. Since our last visit he denies excessive thirst, increased frequency of urination, chest pain or dyspnea. Follows a diabetic diet, Is mostly compliant with medication and is tolerating without side effects. At time of visit: -Pt denies symptoms of hypertensive emergency (CP,SOB,DUMAS, or blurred vision) and hypotension(dizziness or lightheadedness) -Pt denies symptoms of hypoglycemia ( sweaty, confusion, anxiety, tremor, hunger, palpitations) and hyperglycemia ( polydipsia, polyuria) -Pt denies potential medication adverse effect. Hypoglycemia Aware of hypoglycemia:yes Able to self treat low BG: Yes Frequent low Blood sugar: No Has supply of glucagon: Yes Diet Usually 3 meals daily, bedtime snack Does not carb count his meals Currently feels he is binge eating again Exercise Currently5 days weekly SBMG 4 times daily BG 89-270 range with average of 159 Exam Const General: comfortable, well groomed, well hydrated Nutritional Appearance: average body habitus Orientation: oriented x3 HENMT Head: normal to inspection, normocephalic Ears: hearing grossly normal bilaterally Mouth: oral mucosae normal, moist mucous membranes Teeth and gingiva: dentition normal Eyes General: appearance normal, both eyes and all related structures Eyelids: eyelids normal Conjunctivae: conjunctivae normal Sclera: sclerae normal Pupils: PERRL Neck Neck: normal visual inspection, full ROM Resp Effort AND Inspection: normal respiratory effort, able to speak in complete sentences, symmetric chest movement Auscultation: Bilateral: Clear to Auscultation Cardio Rate: regular rate Rhythm: regular rhythm Heart Sounds: S1 normal, S2 normal GI Inspection: normal to inspection Auscultation: normal bowel sounds Palpation: soft, no guarding Musc Thoracic/Lumbar Spine: thoracic and lumbar spine normal to inspection Skin General: no rashes or lesions noted Wounds: no wounds Diabetic Foot Pulses: L dorsalis pedis pulse: normal, R dorsalis pedis pulse: normal Monofilament test: Left foot: abnormal, Right foot: abnormal Neuro General: moves all extremities, normal light touch, pain and propioception Cognition: normal cognition Speech: speech normal Gait: normal gait Extrem General: normal to inspection, normal capillary refill Psych Appearance: well kempt Mental Status: mental status grossly normal Mood: congruent mood Affect: normal affect Speech and Movement: speech and movement normal Thought Process: normal Thought Content: normal Judgment: judgment good Type: type 2, insulin-requiring Weight and fatigue symptoms: Reports weight loss; denies snoring Cardiopulmonary symptoms: Denies chest pain at rest, dyspnea on exertion, lightheadedness or myalgias GI symptoms: Reports diarrhea; denies constipation, nausea/dyspepsia or vomiting Skin and extremity symptoms: Reports tingling/numbness/burning; denies erectile dysfunction Other symptoms: Denies blurry vision or change in vision Pertinent visit history: Denies recent visit to ER, recent hospital admission or recent 911 calls Self monitoring: Yes Percentage of fasting blood glucose within goal: >50% of the time Dietary compliance: Diabetes: good Diabetes education in past year: Yes Glucose testing: demonstrates correct use of meter, understands testing schedule Sick day education - understands ketone testing: Yes Physical activity: regular Intake Vital Signs08/14/18 Height 5 ft 8 in 08/14/18 Weight: 208 lb 8 oz 08/14/18 Body Mass Index (BMI) 31.6 08/14/18 Blood Pressure 138/89 H 08/14/18 Blood Pressure Location Lt popliteal 08/14/18 Blood Pressure Position Sitting Intake Visit Reasons: Diabetes follow-up 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 Accompanied by: Self Allergies erythromycin base Adverse Reaction (Severe, Verified 08/14/18 11:09) Hives loratadine [From Claritin] Adverse Reaction (Severe, Verified 08/14/18 11:09) Rash Medications Cholecalciferol (Vitamin D3) [Vitamin D3] 1,000 unit PO DAILY 10/10/13 [History Confirmed 08/14/18] Ferrous Fumarate [Iron] 18 mg PO DAILY 10/10/13 [History Confirmed 08/14/18] Lisinopril [Zestril] 20 mg PO BID 10/10/13 [History Confirmed 08/14/18] Ascorbic Acid [Vitamin C] 500 mg PO DAILY@0800 07/18/14 [History Confirmed 08/14/18] Sertraline HCl [Zoloft] 100 mg PO DAILY 07/18/14 [History Confirmed 08/14/18] Multivitamins,Therapeutic [Multivitamin] 1 tab PO DAILY 10/21/14 [History Confirmed 08/14/18] Carbamazepine [Tegretol] 400 mg PO TID 12/30/14 [History Confirmed 08/14/18] Cyanocobalamin [Vitamin B12] 500 mcg PO DAILY@0800 11/24/16 [History Confirmed 08/14/18] Rosuvastatin Calcium [Crestor] 40 mg PO DAILY 11/24/16 [History Confirmed 08/14/18] Vitamin E 1,000 unit PO DAILY 11/24/16 [History Confirmed 08/14/18] Charisseaglrogers Mancini U-100 Insulin 100 unit/mL (3 mL) subcutaneous See Rx Instructions SC QHS #60 ml NS 10/05/17 [Rx Confirmed 08/14/18] Fenofibrate Nanocrystallized [Triglide] 160 mg PO DAILY 10/19/17 [History Confirmed 08/14/18] Humalog KwikPen (U- 100) Insulin 100 unit/mL subcutaneous 33 unit SC TID #45 ml NS 11/13/17 [Rx Confirmed 08/14/18] aripiprazole 2 mg tablet 2 mg PO QDAY 02/14/18 [History Confirmed 08/14/18] atenolol 50 mg tablet 50 mg PO BID tab 02/14/18 [History Confirmed 08/14/18] Admelog SoloStar U- 100 Insulin lispro 100 unit/mL subcutaneous pen 33 unit SC TID #90 ml NS 04/12/18 [Rx Confirmed 08/14/18] alcohol swabs 4 pad TOPICAL .daily #100 ea 04/17/18 [Rx Confirmed 08/14/18] Blood Sugar Diagnostic [FreeStyle Lite Strips] 1 strip SQ .MEDSUPPLY 05/01/18 [History Confirmed 08/14/18] Lancets 1 lancet SQ 4X/DAY 05/01/18 [History Confirmed 08/14/18] Pen Needle, Diabetic [Unifine Pentips Plus] 1 ea SQ 4X/DAY 05/01/18 [History Confirmed 08/14/18] Syringe, Disposable, 3 ml [Luer-Jurgen Syringe] 1 syringe SQ 4X/DAY 05/01/18 [History Confirmed 08/14/18] testosterone cypionate 200 mg/mL intramuscular oil 200 mg IM Q2W #1 ml 06/14/18 [Rx Confirmed 08/14/18] Nurse's Note: blood sugars : low : 89 high : 268 PFSH Medical History Anemia (Acute) Asthma (Acute) Cancer (Acute) Carpal tunnel syndrome (Acute) Depressive disorder (Acute) Diabetes type 2, controlled (Acute) GERD (gastroesophageal reflux disease) (Acute) Hepatitis C (Acute) High cholesterol (Acute) History of alcohol abuse (Acute) Hypoglycemia (Acute) Neuropathy (Acute) Obesity (Acute) Pancreatitis (Acute) Seizure disorder (Acute) portacath placement (Acute) HTN (hypertension) (Chronic) Surgical History H/O left hemicolectomy (Acute) Hx of appendectomy (Acute) Family History Grandmother Cervical cancer Diabetes Hypertension Mother Uterine cancer Arthritis Diabetes Hypertension Grandfather Heart disease Arthritis Diabetes Hypertension Unknown Diabetes Arthritis Father Arthritis Diabetes Hypertension Sister Diabetes Hypertension Social History Smoking Status: Former smoker second hand exposure: No alcohol intake: current substance use type: does not use ROS Const Constitutional: Positive for chills; no anorexia, body ache, fatigue, fever(s), frequent falls, decreased energy, malaise, night sweats, weakness, weight change, sleep problems, abnormal sleep pattern, change in appetite, other, headache(s), snoring or excessive sweating Eyes Eyes: No blurry vision, change in vision, double vision, discharge, dry eyes, bulging eyes, floaters, visual disturbances, eye pain, light sensitivity, spots in vision, tunnel vision or other ENT ENT: Positive for nasal congestion and nasal discharge; no abnormal hearing, ear pain, ear discharge, ear pressure, hearing loss, tinnitus, dizziness/vertigo, balance problems, nosebleed/epistaxis, nasal obstruction, nose pain, sinus pressure, sinus pain, post nasal drip, headache(s), facial pain, dental pain, dry mouth, bad breath, hoarseness, lip swelling, mouth lesions, mouth pain, sore throat, tongue swelling, throat swelling, other, difficulty swallowing or neck pain Resp Respiratory: Positive for cough; no change in phlegm color, chest congestion, excessive phlegm production, hemoptysis, pain on inspiration, shortness of breath, pain with cough, snoring, stridor, wheezing or other Cardio Cardiology: Positive for generalized swelling; no chest pain at rest, chest pain with exertion, leg pain with exertion, excessive sweating, shortness of breath, dyspnea on exertion, irregular heart rhythm, lightheadedness, orthopnea, radiating jaw, neck or arm pain, fast heart rate, slow heart rate, palpitations or other Gastro GI: Positive for diarrhea; no abdominal pain, belching, bloating, change in bowel habits, change in stool character, coffee ground emesis, constipation, cramping, heartburn, difficulty swallowing, feeling full early, excessive flatus, incontinent of stools, Vomiting blood/hematemesis, blood in stool, loose stools, Black,tarry stools, nausea/dyspepsia, pain with swallowing, vomiting or other Genitourinary Male: No difficulty urinating, burning urination, painful urination, urinary incontinence, urinary frequency, urinary urgency, urinary hesitancy, urinary retention, blood in urine, Frequent nighttime urination/ nocturia, post void dribbling, suprapubic fullness, side pain, sexual problems, genital lesions, genital itching, erectile dysfunction, penile discharge, difficulty with ejaculations, blood in semen, scrotal swelling, testicle lump, testicle pain or other Musc Musculoskeletal: No abnormal walking, joint pain, back pain, deformity, joint swelling, limited range of motion, loss of height, muscle cramps, muscle weakness, decreased muscle mass, body aches, neck pain, numbness, radiating pain into limb, stiffness, tingling or other Skin Skin: No acne, hair loss, change in hair, nail changes, boil, change in skin color, dry skin, redness, excessive hair growth, yellowing of the skin, lesions, itching, rash, skin pain, skin ulcer, sores, skin swelling, wounds or other Breast Breast: No other Neuro Neurology: No frequent falls, weakness, visual disturbances, abnormal hearing, headache(s), abnormal walking, numbness or tingling Psych Psychiatric: No abnormal sleep pattern, No change in appetite Endo Endocrine: No fatigue, other or excessive sweating Aller/Imm Allergy/Immunologic: No lip swelling, tongue swelling, throat swelling, wheezing or itchy eyes Assessment AND Plan 1. Uncontrolled type 2 diabetes mellitus with hyperglycemia E11.65 Plan BG readings signficantly improved this review. Reports less depression, sleeping better. BG readings checked 4 times daily. Tri now in normal range. Reviewed lab reports with patient Patient Instructions Continue to titrate insulin down as needed to avoid low BG. Labs as ordered. Orders Orders: 2. Low testosterone in male R79.89 Plan Patient inadvertently checked his testosterone levels the day after his injection of testosterone was given. This will need to be rechecked. Lab given On statin and tolerating well. Tri improved significantly On maciej inhibitor. Continues on vitamin D replacement. Lab ordered. Orders Orders: 3. Essential hypertension I10 Plan BP improved. Recheck of initial BP 128/78 Reports taking medication as directed. On lisinopril Plan Detail Additional Comments 1. Please schedule follow up in 3 months. 2. Lab work one week before appointment. 3. Discussed importance of regular exercise and recommend starting or continuing a regular exercise program for good health. 4. The patient was encouraged to lose weight for good health 5. The importance of monitoring blood sugar regularly was reviewed. 6. The importance of monitoring the HBA1c level regularly was reviewed. 7. The importance of prper foot care and regularly checking feet to prevent sores and loss of limbs was reviewed. 8. The importance of keeping BP at or below 130/80 to prevent stroke, heart attacks, kidney failure, blindness was reviewed. Spent approximately 30 minutes with patient with over 50% of time spent in discussion and counseling regarding medication adjustment, symptoms and treatment of hypoglycemia, diet adherence, and checking BG before driving. Coding Level of Care Code Off vis,est,level 4 Diagnoses Uncontrolled type 2 diabetes mellitus with hyperglycemia E11.65 Glycemic state: with hyperglycemia Low testosterone in male R79.89 Essential hypertension I10 Hypertension type: essential hypertension 08/15/18 0814 <Electronically signed by Scarlett VALENTINE> Date Scarlett VALENTINE Cosigner Signature: Date (if applicable) CC: HEMOGLOBIN A1C Collected: 08/10/2018 Status: F Source: [facility] 7:38 AM [facility] [place] REPOSITORY TYPE CODE TESTS RESULT OUT OF RANGE REFERENCE UNITS LAB L501.9985 4.2-6.3 % High HGB A1C 9.1 Performed By: #### L501.9985 #### [facility] [address] [place], [address] COMPREHENSIVE METABOLIC Collected: 08/10/2018 Status: F Source: [facility] 7:38 AM [facility] REPOSITORY TYPE CODE TESTS RESULT OUT OF RANGE REFERENCE UNITS LAB L501.0100 74-106 mg/dL High GLU 133 Result Comment: Fasting Glucose result greater than or equal to 126 mg/dL suggests DIABETES MELLITUS per A.D.A. criteria. Please note revised GLUCOSE reference range effective 2017. LAB L501.1000 7-18 mg/dL High BUN 36 LAB L501.1100 0.70-1.30 mg/dL High CREAT,SERUM 1.72 Result Comment: The validity of the calculated GFR AND GFRAA in patients over 70 years has not been determined. Clinical correlation is essential. LAB L501.1110 >60 mL/min Low EST GFR 45 Result Comment: Non- GFR Calc LAB L501.1115 >60 mL/min Low EST GFR - AA 54 Result Comment: GFR Calc LAB L501.1300 10-20 RATIO High BUN/CRE 20.9 LAB L501.1500 6.4-8.2 g/dL T Normal PROT 8.0 LAB L501.1800 3.2-5.0 g/dL Normal ALB 4.0 LAB L501.1950 2.2-4.2 g/dL Normal GLOB 4.0 LAB L501.2000 0.9-2.4 RATIO Normal A/G 1.0 LAB L501.2200 8.5-10.1 mg/dL CA Normal 9.5 LAB L501.4100 15-37 U/L Normal AST 15 LAB L501.4305 45-117 U/L Low ALK P 42 LAB L501.4405 16-61 U/L Normal ALT 27 LAB L501.4600 0.20-1.00 mg/dL T Normal BILI 0.40 LAB L501.5300 136-145 mmol/L NA Normal 137 LAB L501.5600 3.5-5.1 mmol/L K Normal 4.7 LAB L501.5900 98-107 mmol/L CL Normal 102 LAB L501.6100 21.0-32.0 mmol/L Normal CO2 26.0 LAB L501.6200 5-15 Normal GAP 9 Performed By: #### L500.4050, L500.4100 #### [facility] [address] [place], [place], [address] LIPID PROFILE Collected: 08/10/2018 Status: F Source: [place] 7:38 AM [facility] REPOSITORY TYPE CODE TESTS RESULT OUT OF RANGE REFERENCE UNITS LAB L501.4900 200 mg/dL Normal CHOL 114 Result Comment: <200 mg/dL Desirable 200-240 mg/dL Borderline >240 mg/dL High Risk LAB L501.5000 mg/dL Normal TRIG 197 Result Comment: The drugs N-Acetylcysteine and Metamizole may falsely depress this assay. Serum Triglycerides Reference Interval Normal <150 mg/dL Borderline high 150 - 199 mg/dL High 200 - 499 mg/dL Very High > or = 500 mg/dL LAB L501.6400 mg/dL Low HDL 35 Result Comment: The drugs N-Acetylcysteine and Metamizole may falsely depress this assay. Reference Range HDL <40 mg/dL Low HDL Cholesterol HDL >or= 60 mg/dL High HDL Cholesterol LAB L501.6500 0-130 mg/dL Normal LDL 40 LAB L501.6600 5-40 mg/dL Normal VLDL 39 Performed By: #### L500.4050, L500.4100 #### [facility] [address] [place], [address] MICROALBUMIN,RANDOM URINE Collected: Status: F Source: [place] 08/10/2018 7:38 AM [facility] REPOSITORY TYPE CODE TESTS RESULT OUT OF RANGE REFERENCE UNITS LAB L502.0500 NO RANGE EST. mg/L Normal 590.0 MICROALBUMIN ,UR Performed By: #### L502.0500 #### [facility] [address] [facility] [place], [address] TESTOSTERONE, TOTAL / Collected: 08/10/2018 Status: F Source: [facility] 7:38 AM [facility] REPOSITORY Order Comment: Has Patient had X-rays with Contrast this admission? N TYPE CODE TESTS RESULT OUT OF RANGE REFERENCE UNITS LAB L3100.5320 264-916 ng/dL High > 1500 TESTOSTER,TO CASEY Result Comment: Adult male reference interval is based on a population of healthy nonobese males (BMI <30) between 19 and 39 years old. Veronica et.al. JCEM 2017,102;0419-1924. PMID: [id number]. LAB L3100.5340 5.00-21.00 ng/dL TESTOSTER,FREE High > 55.50 LAB L3100.5360 1.50-4.20 % TESTOSTER %FREE Normal 3.70 Result Comment: Performed at: [address] [id number] Animal Care Attendant: Bradley Peña PhD, Phone: [phone] Performed at: - [facility] [id number] Animal Care Attendant: Opal Arnold MD, Phone: [phone] Performed By: #### L3100.5310 #### [facility] (refer to report for specific site) refer to report for address and phone number OFFICE VISIT REPORT Observed: 08/01/2018 Status: F Source: [place] 11:10 AM [place] [address] [place] [address] OFFICE VISIT Date of Service: 03/01/18 MR#: [id number] Acct: [id number] Patient: REGINALDO HUFFMAN Rep #: [id number] : 1970 Provider: Alex Nurse RN Age/Sex: 47/M [place] [facility] [place] Status: Signed Intake Vital Signs03/01/18 Height 5 ft 8 in 03/01/18 Weight: 218 lb 8 oz 03/01/18 Body Mass Index (BMI) 33.2 03/01/18 Blood Pressure 147/85 H 03/01/18 Blood Pressure Location Lt popliteal 03/01/18 Blood Pressure Position Sitting Intake Visit 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 Accompanied by: Self Is patient in pain?: No Allergies erythromycin base Adverse Reaction (Severe, Verified 05/22/18 11:18) Hives loratadine [From Claritin] Adverse Reaction (Severe, Verified 05/22/18 11:18) Rash Medications Cholecalciferol (Vitamin D3) [Vitamin D3] 1,000 unit PO DAILY 10/10/13 [History Confirmed 05/22/18] Ferrous Fumarate [Iron] 18 mg PO DAILY 10/10/13 [History Confirmed 05/22/18] Lisinopril [Zestril] 20 mg PO BID 10/10/13 [History Confirmed 05/22/18] Ascorbic Acid [Vitamin C] 500 mg PO DAILY@0800 07/18/14 [History Confirmed 05/22/18] Sertraline HCl [Zoloft] 100 mg PO DAILY 07/18/14 [History Confirmed 05/22/18] Multivitamins,Therapeutic [Multivitamin] 1 tab PO DAILY 10/21/14 [History Confirmed 05/22/18] Carbamazepine [Tegretol] 400 mg PO TID 12/30/14 [History Confirmed 05/22/18] Cyanocobalamin [Vitamin B12] 500 mcg PO DAILY@0800 11/24/16 [History Confirmed 05/22/18] Rosuvastatin Calcium [Crestor] 40 mg PO DAILY 11/24/16 [History Confirmed 05/22/18] Vitamin E 1,000 unit PO DAILY 11/24/16 [History Confirmed 05/22/18] Basaglar KwikPen U-100 Insulin 100 unit/mL (3 mL) subcutaneous See Rx Instructions SC QHS #60 ml NS 10/05/17 [Rx Confirmed 05/22/18] Fenofibrate Nanocrystallized [Triglide] 160 mg PO DAILY 10/19/17 [History Confirmed 05/22/18] Humalog KwikPen (U- 100) Insulin 100 unit/mL subcutaneous 33 unit SC TID #45 ml NS 11/13/17 [Rx Confirmed 05/22/18] aripiprazole 2 mg tablet 2 mg PO QDAY 02/14/18 [History Confirmed 05/22/18] atenolol 50 mg tablet 50 mg PO BID tab 02/14/18 [History Confirmed 05/22/18] Admelog SoloStar U- 100 Insulin lispro 100 unit/mL subcutaneous pen 33 unit SC TID #90 ml NS 04/12/18 [Rx Confirmed 05/22/18] alcohol swabs 4 pad TOPICAL .daily #100 ea 04/17/18 [Rx Confirmed 05/22/18] Blood Sugar Diagnostic [FreeStyle Lite Strips] 1 strip SQ .MEDSUPPLY 05/01/18 [History Confirmed 05/22/18] Lancets 1 lancet SQ 4X/DAY 05/01/18 [History Confirmed 05/22/18] Pen Needle, Diabetic [Unifine Pentips Plus] 1 ea SQ 4X/DAY 05/01/18 [History Confirmed 05/22/18] Syringe, Disposable, 3 ml [Luer-Jurgen Syringe] 1 syringe SQ 4X/DAY 05/01/18 [History Confirmed 05/22/18] testosterone cypionate 200 mg/mL intramuscular oil 200 mg IM Q2W #1 ml 06/14/18 [Rx Confirmed 06/14/18] Assessment AND Plan Medications Discontinued: lancets Discontinued Reason: Order edited - Discontinuing origiAs directed 50 ea 11RF nal order Supplemental Info Testosterone cypionate injection, 1ml Lot # [id number] Exp 02/2020 Mfg Hospira given in R side pt tolerated with no c/o 08/01/18 1110 <Electronically signed by Scarlett VALENTINE> Date Scarlett VALENTINE Cosigner Signature: Date (if applicable) CC: OFFICE VISIT REPORT Observed: 08/01/2018 Status: F Source: [place] 11:[address] [place] [address] OFFICE VISIT Date of Service: 07/26/18 MR#: [id number] Acct: [id number] Patient: REGINALDO HUFFMAN Rep #: [id number] : 1970 Provider: Standard Nurse, RN Age/Sex: 47/M Location: [facility] Status: Signed Intake Vital Signs07/26/18 Height 5 ft 8 in 07/26/18 Weight: 220 lb 2 oz Intake Visit 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 Accompanied by: Self Allergies erythromycin base Adverse Reaction (Severe, Verified 05/22/18 11:18) Hives loratadine [From Claritin] Adverse Reaction (Severe, Verified 05/22/18 11:18) Rash Medications Cholecalciferol (Vitamin D3) [Vitamin D3] 1,000 unit PO DAILY 10/10/13 [History Confirmed 05/22/18] Ferrous Fumarate [Iron] 18 mg PO DAILY 10/10/13 [History Confirmed 05/22/18] Lisinopril [Zestril] 20 mg PO BID 10/10/13 [History Confirmed 05/22/18] Ascorbic Acid [Vitamin C] 500 mg PO DAILY@0800 07/18/14 [History Confirmed 05/22/18] Sertraline HCl [Zoloft] 100 mg PO DAILY 07/18/14 [History Confirmed 05/22/18] Multivitamins,Therapeutic [Multivitamin] 1 tab PO DAILY 10/21/14 [History Confirmed 05/22/18] Carbamazepine [Tegretol] 400 mg PO TID 12/30/14 [History Confirmed 05/22/18] Cyanocobalamin [Vitamin B12] 500 mcg PO DAILY@0800 11/24/16 [History Confirmed 05/22/18] Rosuvastatin Calcium [Crestor] 40 mg PO DAILY 11/24/16 [History Confirmed 05/22/18] Vitamin E 1,000 unit PO DAILY 11/24/16 [History Confirmed 05/22/18] Basaglar KwikPen U-100 Insulin 100 unit/mL (3 mL) subcutaneous See Rx Instructions SC QHS #60 ml NS 10/05/17 [Rx Confirmed 05/22/18] Fenofibrate Nanocrystallized [Triglide] 160 mg PO DAILY 10/19/17 [History Confirmed 05/22/18] Humalog KwikPen (U- 100) Insulin 100 unit/mL subcutaneous 33 unit SC TID #45 ml NS 11/13/17 [Rx Confirmed 05/22/18] aripiprazole 2 mg tablet 2 mg PO QDAY 02/14/18 [History Confirmed 05/22/18] atenolol 50 mg tablet 50 mg PO BID tab 02/14/18 [History Confirmed 05/22/18] Admelog SoloStar U- 100 Insulin lispro 100 unit/mL subcutaneous pen 33 unit SC TID #90 ml NS 04/12/18 [Rx Confirmed 05/22/18] alcohol swabs 4 pad TOPICAL .daily #100 ea 04/17/18 [Rx Confirmed 05/22/18] Blood Sugar Diagnostic [FreeStyle Lite Strips] 1 strip SQ .MEDSUPPLY 05/01/18 [History Confirmed 05/22/18] Lancets 1 lancet SQ 4X/DAY 05/01/18 [History Confirmed 05/22/18] Pen Needle, Diabetic [Unifine Pentips Plus] 1 ea SQ 4X/DAY 05/01/18 [History Confirmed 05/22/18] Syringe, Disposable, 3 ml [Luer-Jurgen Syringe] 1 syringe SQ 4X/DAY 05/01/18 [History Confirmed 05/22/18] testosterone cypionate 200 mg/mL intramuscular oil 200 mg IM Q2W #1 ml 06/14/18 [Rx Confirmed 06/14/18] Office Procedures Injections testosterone cyp: Procedure performed by: Jyoti Marshall Site of injection: right gluteal IM Dose of injection: 200mg/1ml Comments: lot # [id number] exp : 08/16 mfg :hospira 08/01/18 1107 <Electronically signed by Scarlett VALENTINE> Date Scarlett VALENTINE Cosigner Signature: Date (if applicable) CC: OFFICE VISIT REPORT Observed: 07/14/2018 Status: F Source: [place] 7:[address] [place] [address] OFFICE VISIT Date of Service: 06/28/18 MR#: [id number] Acct: [id number] Patient: REGINALDO HUFFMAN Rep #: [id number] : 1970 Provider: Alex Bedoya RN Age/Sex: 47/M Location[place] [facility] [place] Status: Signed Intake Vital Signs06/28/18 Height 5 ft 10 in 06/28/18 Weight: 219 lb 4 oz 06/28/18 Body Mass Index (BMI) 31.4 06/28/18 Blood Pressure 171/98 H 06/28/18 Blood Pressure Location Rt popliteal 06/28/18 Blood Pressure Position Sitting Intake Visit 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 Accompanied by: Self Allergies erythromycin base Adverse Reaction (Severe, Verified 05/22/18 11:18) Hives loratadine [From Claritin] Adverse Reaction (Severe, Verified 05/22/18 11:18) Rash Medications Cholecalciferol (Vitamin D3) [Vitamin D3] 1,000 unit PO DAILY 10/10/13 [History Confirmed 05/22/18] Ferrous Fumarate [Iron] 18 mg PO DAILY 10/10/13 [History Confirmed 05/22/18] Lisinopril [Zestril] 20 mg PO BID 10/10/13 [History Confirmed 05/22/18] Ascorbic Acid [Vitamin C] 500 mg PO DAILY@0800 07/18/14 [History Confirmed 05/22/18] Sertraline HCl [Zoloft] 100 mg PO DAILY 07/18/14 [History Confirmed 05/22/18] Multivitamins,Therapeutic [Multivitamin] 1 tab PO DAILY 10/21/14 [History Confirmed 05/22/18] Carbamazepine [Tegretol] 400 mg PO TID 12/30/14 [History Confirmed 05/22/18] Cyanocobalamin [Vitamin B12] 500 mcg PO DAILY@0800 11/24/16 [History Confirmed 05/22/18] Rosuvastatin Calcium [Crestor] 40 mg PO DAILY 11/24/16 [History Confirmed 05/22/18] Vitamin E 1,000 unit PO DAILY 11/24/16 [History Confirmed 05/22/18] Basaglar KwikPen U-100 Insulin 100 unit/mL (3 mL) subcutaneous See Rx Instructions SC QHS #60 ml NS 10/05/17 [Rx Confirmed 05/22/18] Fenofibrate Nanocrystallized [Triglide] 160 mg PO DAILY 10/19/17 [History Confirmed 05/22/18] Humalog KwikPen (U- 100) Insulin 100 unit/mL subcutaneous 33 unit SC TID #45 ml NS 11/13/17 [Rx Confirmed 05/22/18] aripiprazole 2 mg tablet 2 mg PO QDAY 02/14/18 [History Confirmed 05/22/18] atenolol 50 mg tablet 50 mg PO BID tab 02/14/18 [History Confirmed 05/22/18] Admelog SoloStar U- 100 Insulin lispro 100 unit/mL subcutaneous pen 33 unit SC TID #90 ml NS 04/12/18 [Rx Confirmed 05/22/18] alcohol swabs 4 pad TOPICAL .daily #100 ea 04/17/18 [Rx Confirmed 05/22/18] Blood Sugar Diagnostic [FreeStyle Lite Strips] 1 strip SQ .MEDSUPPLY 05/01/18 [History Confirmed 05/22/18] Lancets 1 lancet SQ 4X/DAY 05/01/18 [History Confirmed 05/22/18] Pen Needle, Diabetic [Unifine Pentips Plus] 1 ea SQ 4X/DAY 05/01/18 [History Confirmed 05/22/18] Syringe, Disposable, 3 ml [Luer-Jurgen Syringe] 1 syringe SQ 4X/DAY 05/01/18 [History Confirmed 05/22/18] testosterone cypionate 200 mg/mL intramuscular oil 200 mg IM Q2W #1 ml 06/14/18 [Rx Confirmed 06/14/18] Office Procedures Injections Depo-Testosterone: Procedure performed by: fabby Site of injection: right gluteal IM Dose of injection: 200mg/1ml lot # [id number] exp 07/2020 mfg : hospira 07/14/181956 <Electronically signed by Scarlett VALENTINE> Date Scarlett VALENTINE Cosigner Signature: Date (if applicable) CC: OFFICE VISIT REPORT Observed: 07/14/2018 Status: F Source: [place] 7:57 PM [address] [place] [address] OFFICE VISIT Date of Service: 07/12/18 MR#: [id number] Acct: [id number] Patient: REGINALDO HUFFMAN Mauricio Rep #: [id number] : 1970 Provider: Standard Nurse, RN Age/Sex: 47/M [place] [facility] [place]: Signed Intake Vital Signs07/12/18 Height 5 ft 8 in 07/12/18 Weight: 219 lb 6 oz 07/12/18 Body Mass Index (BMI) 33.3 07/12/18 Blood Pressure 119/78 07/12/18 Blood Pressure Location Rt popliteal 07/12/18 Blood Pressure Position Sitting Intake Visit 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 Accompanied by: Self Allergies erythromycin base Adverse Reaction (Severe, Verified 05/22/18 11:18) Hives loratadine [From Claritin] Adverse Reaction (Severe, Verified 05/22/18 11:18) Rash Medications Cholecalciferol (Vitamin D3) [Vitamin D3] 1,000 unit PO DAILY 10/10/13 [History Confirmed 05/22/18] Ferrous Fumarate [Iron] 18 mg PO DAILY 10/10/13 [History Confirmed 05/22/18] Lisinopril [Zestril] 20 mg PO BID 10/10/13 [History Confirmed 05/22/18] Ascorbic Acid [Vitamin C] 500 mg PO DAILY@0800 07/18/14 [History Confirmed 05/22/18] Sertraline HCl [Zoloft] 100 mg PO DAILY 07/18/14 [History Confirmed 05/22/18] Multivitamins,Therapeutic [Multivitamin] 1 tab PO DAILY 10/21/14 [History Confirmed 05/22/18] Carbamazepine [Tegretol] 400 mg PO TID 12/30/14 [History Confirmed 05/22/18] Cyanocobalamin [Vitamin B12] 500 mcg PO DAILY@0800 11/24/16 [History Confirmed 05/22/18] Rosuvastatin Calcium [Crestor] 40 mg PO DAILY 11/24/16 [History Confirmed 05/22/18] Vitamin E 1,000 unit PO DAILY 11/24/16 [History Confirmed 05/22/18] Basaglar KwikPen U-100 Insulin 100 unit/mL (3 mL) subcutaneous See Rx Instructions SC QHS #60 ml NS 10/05/17 [Rx Confirmed 05/22/18] Fenofibrate Nanocrystallized [Triglide] 160 mg PO DAILY 10/19/17 [History Confirmed 05/22/18] Humalog KwikPen (U- 100) Insulin 100 unit/mL subcutaneous 33 unit SC TID #45 ml NS 11/13/17 [Rx Confirmed 05/22/18] aripiprazole 2 mg tablet 2 mg PO QDAY 02/14/18 [History Confirmed 05/22/18] atenolol 50 mg tablet 50 mg PO BID tab 02/14/18 [History Confirmed 05/22/18] Admelog SoloStar U- 100 Insulin lispro 100 unit/mL subcutaneous pen 33 unit SC TID #90 ml NS 04/12/18 [Rx Confirmed 05/22/18] alcohol swabs 4 pad TOPICAL .daily #100 ea 04/17/18 [Rx Confirmed 05/22/18] Blood Sugar Diagnostic [FreeStyle Lite Strips] 1 strip SQ .MEDSUPPLY 05/01/18 [History Confirmed 05/22/18] Lancets 1 lancet SQ 4X/DAY 05/01/18 [History Confirmed 05/22/18] Pen Needle, Diabetic [Unifine Pentips Plus] 1 ea SQ 4X/DAY 05/01/18 [History Confirmed 05/22/18] Syringe, Disposable, 3 ml [Luer-Jurgen Syringe] 1 syringe SQ 4X/DAY 05/01/18 [History Confirmed 05/22/18] testosterone cypionate 200 mg/mL intramuscular oil 200 mg IM Q2W #1 ml 06/14/18 [Rx Confirmed 06/14/18] Office Procedures Injections testosterone cyp: Procedure performed by: Jyoti Marshall Site of injection: left gluteal IM Dose of injection: 200mg/1ml lot # [id number] exp : 08/16 mfg : hospira Comments: pt tolerated well 07/14/181956 <Electronically signed by Scarlett VALENTINE> Date Scarlett VALENTINE Cosigner Signature: Date (if applicable) CC: OFFICE VISIT REPORT Observed: 07/14/2018 Status: F Source: MARY 7:55 PM [address] [place] [address] [place] [address] OFFICE VISIT Date of Service: 06/14/18 MR#: [id number] Acct: [id number] Patient: REGINALDO HUFFMAN Rep #: [id number] : 1970 Provider: Standard Nurse, RN Age/Sex: 47/M [place] [facility] [place]: Signed Intake Vital Signs06/14/18 Height 5 ft 10 in 06/14/18 Weight: 222 lb 4 oz 06/14/18 Body Mass Index (BMI) 31.8 06/14/18 Blood Pressure 148/82 H 06/14/18 Blood Pressure Location Lt popliteal 06/14/18 Blood Pressure Position Sitting Intake Visit 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 Accompanied by: Self Allergies erythromycin base Adverse Reaction (Severe, Verified 05/22/18 11:18) Hives loratadine [From Claritin] Adverse Reaction (Severe, Verified 05/22/18 11:18) Rash Medications Cholecalciferol (Vitamin D3) [Vitamin D3] 1,000 unit PO DAILY 10/10/13 [History Confirmed 05/22/18] Ferrous Fumarate [Iron] 18 mg PO DAILY 10/10/13 [History Confirmed 05/22/18] Lisinopril [Zestril] 20 mg PO BID 10/10/13 [History Confirmed 05/22/18] Ascorbic Acid [Vitamin C] 500 mg PO DAILY@0800 07/18/14 [History Confirmed 05/22/18] Sertraline HCl [Zoloft] 100 mg PO DAILY 07/18/14 [History Confirmed 05/22/18] Multivitamins,Therapeutic [Multivitamin] 1 tab PO DAILY 10/21/14 [History Confirmed 05/22/18] Carbamazepine [Tegretol] 400 mg PO TID 12/30/14 [History Confirmed 05/22/18] Cyanocobalamin [Vitamin B12] 500 mcg PO DAILY@0800 11/24/16 [History Confirmed 05/22/18] Rosuvastatin Calcium [Crestor] 40 mg PO DAILY 11/24/16 [History Confirmed 05/22/18] Vitamin E 1,000 unit PO DAILY 11/24/16 [History Confirmed 05/22/18] Basaglar KwikPen U-100 Insulin 100 unit/mL (3 mL) subcutaneous See Rx Instructions SC QHS #60 ml NS 10/05/17 [Rx Confirmed 05/22/18] Fenofibrate Nanocrystallized [Triglide] 160 mg PO DAILY 10/19/17 [History Confirmed 05/22/18] Humalog KwikPen (U- 100) Insulin 100 unit/mL subcutaneous 33 unit SC TID #45 ml NS 11/13/17 [Rx Confirmed 05/22/18] aripiprazole 2 mg tablet 2 mg PO QDAY 02/14/18 [History Confirmed 05/22/18] atenolol 50 mg tablet 50 mg PO BID tab 02/14/18 [History Confirmed 05/22/18] Admelog SoloStar U- 100 Insulin lispro 100 unit/mL subcutaneous pen 33 unit SC TID #90 ml NS 04/12/18 [Rx Confirmed 05/22/18] alcohol swabs 4 pad TOPICAL .daily #100 ea 04/17/18 [Rx Confirmed 05/22/18] Blood Sugar Diagnostic [FreeStyle Lite Strips] 1 strip SQ .MEDSUPPLY 05/01/18 [History Confirmed 05/22/18] Lancets 1 lancet SQ 4X/DAY 05/01/18 [History Confirmed 05/22/18] Pen Needle, Diabetic [Unifine Pentips Plus] 1 ea SQ 4X/DAY 05/01/18 [History Confirmed 05/22/18] Syringe, Disposable, 3 ml [Luer-Jurgen Syringe] 1 syringe SQ 4X/DAY 05/01/18 [History Confirmed 05/22/18] testosterone cypionate 200 mg/mL intramuscular oil 200 mg IM Q2W #1 ml 06/14/18 [Rx Confirmed 06/14/18] Office Procedures Injections Depo-Testosterone: Procedure performed by: Jyoti Marshall Site of injection: left gluteal IM Dose of injection: Testosterone Cyp 200mg/1ml lot# [id number] exp date 03/16 mfg : marysol Comments: pt tolerated with no c/o Assessment AND Plan Medications Refilled: 07/14/181954 <Electronically signed by Scarlett VALENTINE> Date Scarlett VALENTINE Cosigner Signature: Date (if applicable) CC: OFFICE VISIT REPORT Observed: 06/18/2018 Status: F Source: MARY 8:[address] [place] [address] OFFICE VISIT Date of Service: 05/17/18 MR#: [id number] Acct: [id number] Patient: REGINALDO HUFFMAN Rep #: [id number] : 1970 Provider: Scarlett Ricketts NP Age/Sex: 47/M Location: [facility] [place] Status: Signed Intake Vital Signs05/17/18 Height 5 ft 10 in 05/17/18 Weight: 220 lb 8 oz 05/17/18 Body Mass Index (BMI) 31.6 05/17/18 Blood Pressure 138/77 H 05/17/18 Blood Pressure Location Lt popliteal 05/17/18 Blood Pressure Position Sitting Intake Visit 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 Accompanied by: Self Is patient in pain?: No Allergies erythromycin base Adverse Reaction (Severe, Verified 05/22/18 11:18) Hives loratadine [From Claritin] Adverse Reaction (Severe, Verified 05/22/18 11:) Rash Medications Cholecalciferol (Vitamin D3) [Vitamin D3] 1,000 unit PO DAILY 10/10/13 [History Confirmed 05/22/18] Ferrous Fumarate [Iron] 18 mg PO DAILY 10/10/13 [History Confirmed 05/22/18] Lisinopril [Zestril] 20 mg PO BID 10/10/13 [History Confirmed 05/22/18] Ascorbic Acid [Vitamin C] 500 mg PO DAILY@0800 07/18/14 [History Confirmed 05/22/18] Sertraline HCl [Zoloft] 100 mg PO DAILY 07/18/14 [History Confirmed 05/22/18] Multivitamins,Therapeutic [Multivitamin] 1 tab PO DAILY 10/21/14 [History Confirmed 05/22/18] Carbamazepine [Tegretol] 400 mg PO TID 12/30/14 [History Confirmed 05/22/18] Cyanocobalamin [Vitamin B12] 500 mcg PO DAILY@0800 11/24/16 [History Confirmed 05/22/18] Rosuvastatin Calcium [Crestor] 40 mg PO DAILY 11/24/16 [History Confirmed 05/22/18] Vitamin E 1,000 unit PO DAILY 11/24/16 [History Confirmed 05/22/18] Basaglar Addis U-100 Insulin 100 unit/mL (3 mL) subcutaneous See Rx Instructions SC QHS #60 ml NS 10/05/17 [Rx Confirmed 05/22/18] Fenofibrate Nanocrystallized [Triglide] 160 mg PO DAILY 10/19/17 [History Confirmed 05/22/18] Humalog KwikPen (U- 100) Insulin 100 unit/mL subcutaneous 33 unit SC TID #45 ml NS 11/13/17 [Rx Confirmed 05/22/18] aripiprazole 2 mg tablet 2 mg PO QDAY 02/14/18 [History Confirmed 05/22/18] atenolol 50 mg tablet 50 mg PO BID tab 02/14/18 [History Confirmed 05/22/18] Admelog SoloStar U- 100 Insulin lispro 100 unit/mL subcutaneous pen 33 unit SC TID #90 ml NS 04/12/18 [Rx Confirmed 05/22/18] alcohol swabs 4 pad TOPICAL .daily #100 ea 04/17/18 [Rx Confirmed 05/22/18] Blood Sugar Diagnostic [FreeStyle Lite Strips] 1 strip SQ .MEDSUPPLY 05/01/18 [History Confirmed 05/22/18] Lancets 1 lancet SQ 4X/DAY 05/01/18 [History Confirmed 05/22/18] Pen Needle, Diabetic [Unifine Pentips Plus] 1 ea SQ 4X/DAY 05/01/18 [History Confirmed 05/22/18] Syringe, Disposable, 3 ml [Luer-Jurgen Syringe] 1 syringe SQ 4X/DAY 05/01/18 [History Confirmed 05/22/18] testosterone cypionate 200 mg/mL intramuscular oil 200 mg IM Q2W #1 ml 06/14/18 [Rx Confirmed 06/14/18] 06/18/182004 <Electronically signed by Scarlett VALENTINE> Date Scarlett VALENTINE Cosigner Signature: Date (if applicable) CC: OFFICE VISIT REPORT Observed: 06/18/2018 Status: F Source: MARY 8:03 PM [facility] [address] [place] [address] OFFICE VISIT Date of Service: 05/31/18 MR#: [id number] Acct: [id number] Patient: REGINALDO HUFFMAN Rep #: [id number] : 1970 Provider: Scarlett Ricketts NP Age/Sex: 47/M [place] [facility] [place]: Signed Intake Vital Signs05/31/18 Height 5 ft 10 in 05/31/18 Weight: 225 lb 05/31/18 Body Mass Index (BMI) 32.3 05/31/18 Blood Pressure 144/85 H 05/31/18 Blood Pressure Location Lt popliteal 05/31/18 Blood Pressure Position Sitting 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 Allergies erythromycin base Adverse Reaction (Severe, Verified 05/22/18 11:18) Hives loratadine [From Claritin] Adverse Reaction (Severe, Verified 05/22/18 11:18) Rash Medications Cholecalciferol (Vitamin D3) [Vitamin D3] 1,000 unit PO DAILY 10/10/13 [History Confirmed 05/22/18] Ferrous Fumarate [Iron] 18 mg PO DAILY 10/10/13 [History Confirmed 05/22/18] Lisinopril [Zestril] 20 mg PO BID 10/10/13 [History Confirmed 05/22/18] Ascorbic Acid [Vitamin C] 500 mg PO DAILY@0800 07/18/14 [History Confirmed 05/22/18] Sertraline HCl [Zoloft] 100 mg PO DAILY 07/18/14 [History Confirmed 05/22/18] Multivitamins,Therapeutic [Multivitamin] 1 tab PO DAILY 10/21/14 [History Confirmed 05/22/18] Carbamazepine [Tegretol] 400 mg PO TID 12/30/14 [History Confirmed 05/22/18] Cyanocobalamin [Vitamin B12] 500 mcg PO DAILY@0800 11/24/16 [History Confirmed 05/22/18] Rosuvastatin Calcium [Crestor] 40 mg PO DAILY 11/24/16 [History Confirmed 05/22/18] Vitamin E 1,000 unit PO DAILY 11/24/16 [History Confirmed 05/22/18] Ra Mancini U-100 Insulin 100 unit/mL (3 mL) subcutaneous See Rx Instructions SC QHS #60 ml NS 10/05/17 [Rx Confirmed 05/22/18] Fenofibrate Nanocrystallized [Triglide] 160 mg PO DAILY 10/19/17 [History Confirmed 05/22/18] Humalog KwikPen (U- 100) Insulin 100 unit/mL subcutaneous 33 unit SC TID #45 ml NS 11/13/17 [Rx Confirmed 05/22/18] aripiprazole 2 mg tablet 2 mg PO QDAY 02/14/18 [History Confirmed 05/22/18] atenolol 50 mg tablet 50 mg PO BID tab 02/14/18 [History Confirmed 05/22/18] Admelog SoloStar U- 100 Insulin lispro 100 unit/mL subcutaneous pen 33 unit SC TID #90 ml NS 04/12/18 [Rx Confirmed 05/22/18] alcohol swabs 4 pad TOPICAL .daily #100 ea 04/17/18 [Rx Confirmed 05/22/18] Blood Sugar Diagnostic [FreeStyle Lite Strips] 1 strip SQ .MEDSUPPLY 05/01/18 [History Confirmed 05/22/18] Lancets 1 lancet SQ 4X/DAY 05/01/18 [History Confirmed 05/22/18] Pen Needle, Diabetic [Unifine Pentips Plus] 1 ea SQ 4X/DAY 05/01/18 [History Confirmed 05/22/18] Syringe, Disposable, 3 ml [Luer-Jurgen Syringe] 1 syringe SQ 4X/DAY 05/01/18 [History Confirmed 05/22/18] testosterone cypionate 200 mg/mL intramuscular oil 200 mg IM Q2W #1 ml 06/14/18 [Rx Confirmed 06/14/18] Office Procedures Injections Depo-Testosterone: Procedure performed by: Jyoti Marshall Site of injection: right gluteal IM Dose of injection: 200/ml Comments: Lot # [id number] Exp : 06/2020 Mfg : Hospira Nursing Note testosterone cyp injection given to pt IM in R gluteal muscle. pt tolerated well. will return in clinic in 2 weeks for next injection 06/18/182002 <Electronically signed by Scarlett VALENTINE> Date Scarlett Nugenter Signature: Date (if applicable) CC: OFFICE VISIT REPORT Observed: 06/18/2018 Status: F Source: MARY 7:55 PM [address] [place] [address] OFFICE VISIT Date of Service: 11/16/17 MR#: [id number] Acct: [id number] Patient: REGINALDO HUFFMAN Rep #: [id number] : 1970 Provider: Alex NurseKLEBER Age/Sex: 47/M [place] [facility] [place]: Signed Intake Vital Signs11/16/17 Height 5 ft 10 in 11/16/17 Weight: 220 lb 4 oz 11/16/17 Body Mass Index (BMI) 31.6 11/16/17 Blood Pressure 129/71 H 11/16/17 Blood Pressure Location Lt popliteal 11/16/17 Blood Pressure Position Sitting Intake Visit Reasons: Injection Chief Complaint: f/u for colon cancer 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 Accompanied by: Self Is patient in pain?: No Allergies erythromycin base Adverse Reaction (Severe, Verified 05/22/18 11:18) Hives loratadine [From Claritin] Adverse Reaction (Severe, Verified 05/22/18 11:18) Rash Medications Cholecalciferol (Vitamin D3) [Vitamin D3] 1,000 unit PO DAILY 10/10/13 [History Confirmed 05/22/18] Ferrous Fumarate [Iron] 18 mg PO DAILY 10/10/13 [History Confirmed 05/22/18] Lisinopril [Zestril] 20 mg PO BID 10/10/13 [History Confirmed 05/22/18] Ascorbic Acid [Vitamin C] 500 mg PO DAILY@0800 07/18/14 [History Confirmed 05/22/18] Sertraline HCl [Zoloft] 100 mg PO DAILY 07/18/14 [History Confirmed 05/22/18] Multivitamins,Therapeutic [Multivitamin] 1 tab PO DAILY 10/21/14 [History Confirmed 05/22/18] Carbamazepine [Tegretol] 400 mg PO TID 12/30/14 [History Confirmed 05/22/18] Cyanocobalamin [Vitamin B12] 500 mcg PO DAILY@0800 11/24/16 [History Confirmed 05/22/18] Rosuvastatin Calcium [Crestor] 40 mg PO DAILY 11/24/16 [History Confirmed 05/22/18] Vitamin E 1,000 unit PO DAILY 11/24/16 [History Confirmed 05/22/18] Basaglar KwikPen U-100 Insulin 100 unit/mL (3 mL) subcutaneous See Rx Instructions SC QHS #60 ml NS 10/05/17 [Rx Confirmed 05/22/18] Fenofibrate Nanocrystallized [Triglide] 160 mg PO DAILY 10/19/17 [History Confirmed 05/22/18] Humalog KwikPen (U- 100) Insulin 100 unit/mL subcutaneous 33 unit SC TID #45 ml NS 11/13/17 [Rx Confirmed 05/22/18] aripiprazole 2 mg tablet 2 mg PO QDAY 02/14/18 [History Confirmed 05/22/18] atenolol 50 mg tablet 50 mg PO BID tab 02/14/18 [History Confirmed 05/22/18] testosterone cypionate 200 mg/mL intramuscular oil 200 mg IM Q2W #1 ml 03/26/18 [Rx Confirmed 05/22/18] Admelog SoloStar U- 100 Insulin lispro 100 unit/mL subcutaneous pen 33 unit SC TID #90 ml NS 04/12/18 [Rx Confirmed 05/22/18] alcohol swabs 4 pad TOPICAL .daily #100 ea 04/17/18 [Rx Confirmed 05/22/18] Blood Sugar Diagnostic [FreeStyle Lite Strips] 1 strip SQ .MEDSUPPLY 05/01/18 [History Confirmed 05/22/18] Lancets 1 lancet SQ 4X/DAY 05/01/18 [History Confirmed 05/22/18] Pen Needle, Diabetic [Unifine Pentips Plus] 1 ea SQ 4X/DAY 05/01/18 [History Confirmed 05/22/18] Syringe, Disposable, 3 ml [Luer-Jurgen Syringe] 1 syringe SQ 4X/DAY 05/01/18 [History Confirmed 05/22/18] Office Procedures Injections Testosterone: Procedure performed by: Rolando,Jyoti L Site of injection: left gluteal IM Dose of injection: 1ml Assessment AND Plan Orders Orders: Medications New: Discontinued: lancets (FreeStyle Lancets) Discontinued Reason: Order edited As directed 50 ea 11RF - Discontinuing original order pen needle, diabetic (Easy Comfort Pen Friendship) Discontinued ReAs directed 100 ea 11RF ason: Order edited - Discontinuing original order 06/18/181954 <Electronically signed by Scarlett VALENTINE> Date Scarlett VALENTINE Cosigner Signature: Date (if applicable) CC: OFFICE VISIT REPORT Observed: 06/18/2018 Status: F Source: MARY 7:[address] [place] [address] OFFICE VISIT Date of Service: 12/28/17 MR#: [id number] Acct: [id number] Patient: REGINALDO HUFFMAN Rep #: [id number] : 1970 Provider: Alex Nurse, RN Age/Sex: 47/M Location: [facility] [place] Status: Signed Intake Vital Signs12/28/17 Height 5 ft 10 in 12/28/17 Weight: 214 lb 8 oz 12/28/17 Body Mass Index (BMI) 30.7 12/28/17 Blood Pressure 137/83 12/28/17 Blood Pressure Location Lt popliteal 12/28/17 Blood Pressure Position Sitting Intake Visit Reasons: Injection Chief Complaint: f/u for colon cancer 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 Accompanied by: Self Is patient in pain?: No Allergies erythromycin base Adverse Reaction (Severe, Verified 05/03/18 11:45) Hives loratadine [From Claritin] Adverse Reaction (Severe, Verified 05/03/18 11:45) Rash Medications Cholecalciferol (Vitamin D3) [Vitamin D3] 1,000 unit PO DAILY 10/10/13 [History Confirmed 05/03/18] Ferrous Fumarate [Iron] 18 mg PO DAILY 10/10/13 [History Confirmed 05/03/18] Lisinopril [Zestril] 20 mg PO BID 10/10/13 [History Confirmed 05/03/18] Ascorbic Acid [Vitamin C] 500 mg PO DAILY@0800 07/18/14 [History Confirmed 05/03/18] Sertraline HCl [Zoloft] 100 mg PO DAILY 07/18/14 [History Confirmed 05/03/18] Multivitamins,Therapeutic [Multivitamin] 1 tab PO DAILY 10/21/14 [History Confirmed 05/03/18] Carbamazepine [Tegretol] 400 mg PO TID 12/30/14 [History Confirmed 05/03/18] Cyanocobalamin [Vitamin B12] 500 mcg PO DAILY@0800 11/24/16 [History Confirmed 05/03/18] Rosuvastatin Calcium [Crestor] 40 mg PO DAILY 11/24/16 [History Confirmed 05/03/18] Vitamin E 1,000 unit PO DAILY 11/24/16 [History Confirmed 05/03/18] Basaglar KwikPen U-100 Insulin 100 unit/mL (3 mL) subcutaneous See Label Instructions SC QHS #60 ml NS 10/05/17 [Rx Confirmed 05/03/18] Fenofibrate Nanocrystallized [Triglide] 160 mg PO DAILY 10/19/17 [History Confirmed 05/03/18] Humalog KwikPen (U-100) Insulin 100 unit/mL subcutaneous 33 unit SC TID #45 ml NS 11/13/17 [Rx Confirmed 05/03/18] aripiprazole 2 mg tablet 2 mg PO QDAY 02/14/18 [History Confirmed 05/03/18] atenolol 50 mg tablet 50 mg PO BID tab 02/14/18 [History Confirmed 05/03/18] testosterone cypionate 200 mg/mL intramuscular oil 200 mg IM Q2W #1 ml 03/26/18 [Rx Confirmed 05/03/18] Admelog SoloStar U-100 Insulin lispro 100 unit/mL subcutaneous pen 33 unit SC TID #90 ml NS 04/12/18 [Rx Confirmed 05/03/18] alcohol swabs 4 pad TOPICAL .daily #100 ea 04/17/18 [Rx Confirmed 05/03/18] Blood Sugar Diagnostic [FreeStyle Lite Strips] 1 strip SQ .MEDSUPPLY 05/01/18 [History Confirmed 05/03/18] Lancets 1 lancet SQ 4X/DAY 05/01/18 [History Confirmed 05/03/18] Pen Needle, Diabetic [Unifine Pentips Plus] 1 ea SQ 4X/DAY 05/01/18 [History Confirmed 05/03/18] Syringe, Disposable, 3 ml [Luer-Jurgen Syringe] 1 syringe SQ 4X/DAY 05/01/18 [History Confirmed 05/03/18] Office Meds testosterone cypionate Performing Provider: SERGE Sanders Administered by: Jyoti Marshall on 12/28/17 11:30 Dose Route Admin Location Lot Number Expiration Date [place] [employer] Repairer 1 ml IM L 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 pt tolerated well. states no complaints after last visit. 06/18/181954 <Electronically signed by Scarlett VALENTINE> Date Scarlett VALENTINE Cosigner Signature: Date (if applicable) CC: CBC W/DIFF, AUTOMATED Collected: 05/30/2018 Status: F Source: MARY 10:41 AM [facility] [place] REPOSITORY TYPE CODE TESTS RESULT OUT OF RANGE REFERENCE UNITS LAB L100.1000 4.4-11.0 K/mm3 Normal WBC 6.0 LAB L100.1200 4.6-6.2 M/mm3 Low RBC 4.16 LAB L100.1300 13.0-16.5 g/dl Low HGB 12.6 LAB L100.1400 40-54 % Low HCT 36.4 LAB L100.1500 80-94 fL Normal MCV 87.5 LAB L100.1600 27.0-32.0 pg Normal MCH 30.3 LAB L100.1700 32-36 g/gl Normal MCHC 34.6 LAB L100.1810 11.6-14.6 % Normal RDW CV 12.8 LAB L100.1820 35.1-43.9 fl Normal RDW SD 41.0 LAB L100.1900 150-450 K/mm3 Normal PLT 175 LAB L100.2000 6.2-12.0 fl Normal MPV 9.9 LAB L100.2100 47-70 % Normal NEUT% 59.5 LAB L100.2200 19-41 % Normal LY% 32.3 LAB L100.2300 0-10 % Normal MONO% 6.3 LAB L100.2400 0-5 % Normal EO% 1.3 LAB L100.2500 0-1 % Normal BASO% 0.3 LAB L100.2550 0.0-0.9 % Normal IM GRAN % 0.300 Result Comment: IG% - Immature Granulocytes (promyelocytes, myelocytes and metamyelocytes) > 1% indicates that a LEFT SHIFT is Present. LAB L100.2620 2.0-7.7 X10 3/uL Normal Absolute Neut 3.6 LAB L100.2720 0.83-4.51 X10 3/ul Normal Absolute Lymph 1.94 Performed By: #### L100.0100 #### [facility] [address] [facility] [place], [place], [address] CARBAMAZEPINE (TEGRETOL) Collected: 05/30/2018 Status: F Source: [place] 10:41 AM [facility] [place] REPOSITORY TYPE CODE TESTS RESULT OUT OF REFERENCE UNITS RANGE LAB L501.7900 4.0-12.0 ug/mL CARBAMAZEPINE Normal 11.5 Performed By: #### L501.7900 #### [facility] [address] [place], [place], [address] COMPREHENSIVE METABOLIC Collected: 05/30/2018 Status: F Source: [facility] 10:41 AM [facility] [place] REPOSITORY TYPE CODE TESTS RESULT OUT OF RANGE REFERENCE UNITS LAB L501.0100 74-106 mg/dL High GLU 212 Result Comment: Glucose result greater than or equal to 200 mg/dL suggests DIABETES MELLITUS per A.D.A. criteria. Please note revised GLUCOSE reference range effective 2017. LAB L501.1000 7-18 mg/dL High BUN 22 LAB L501.1100 0.70-1.30 mg/dL High CREAT,SERUM 1.37 Result Comment: The validity of the calculated GFR AND GFRAA in patients over 70 years has not been determined. Clinical correlation is essential. LAB L501.1110 >60 mL/min Low EST GFR 59 Result Comment: Non- GFR Calc LAB L501.1115 >60 mL/min Normal EST GFR - AA 71 Result Comment: GFR Calc LAB L501.1300 10-20 RATIO Normal BUN/CRE 16.1 LAB L501.1500 6.4-8.2 g/dL T Normal PROT 7.7 LAB L501.1800 3.2-5.0 g/dL Normal ALB 3.7 LAB L501.1950 2.2-4.2 g/dL Normal GLOB 4.0 LAB L501.2000 0.9-2.4 RATIO Normal A/G 0.9 LAB L501.2200 8.5-10.1 mg/dL CA Normal 9.4 LAB L501.4100 15-37 U/L Normal AST 18 Result Comment: Slight Hemolysis, Result may be falsely increased. LAB L501.4305 45-117 U/L Low ALK P 38 LAB L501.4405 16-61 U/L Normal ALT 32 LAB L501.4600 0.20-1.00 mg/dL Normal T BILI 0.30 LAB L501.5300 136-145 mmol/L Low NA 135 LAB L501.5600 3.5-5.1 mmol/L Normal K 4.6 Result Comment: Slight Hemolysis, Result may be falsely increased. LAB L501.5900 98-107 mmol/L Normal CL 101 LAB L501.6100 21.0-32.0 mmol/L Normal CO2 26.0 LAB L501.6200 5-15 Normal 8 GAP Performed By: #### L500.4050, L500.4100, L501.9520, L506.0400 #### [facility] [address] [place], [place], [address] LIPID PROFILE Collected: 05/30/2018 Status: F Source: [place] 10:41 AM [facility] [place] REPOSITORY TYPE CODE TESTS RESULT OUT OF RANGE REFERENCE UNITS LAB L501.4900 200 mg/dL Normal CHOL 190 Result Comment: <200 mg/dL Desirable 200-240 mg/dL Borderline >240 mg/dL High Risk LAB L501.5000 mg/dL High TRIG 1083 Result Comment: The drugs N-Acetylcysteine and Metamizole may falsely depress this assay. Serum Triglycerides Reference Interval Normal <150 mg/dL Borderline high 150 - 199 mg/dL High 200 - 499 mg/dL Very High > or = 500 mg/dL LAB L501.6400 mg/dL Low HDL 27 Result Comment: The drugs N-Acetylcysteine and Metamizole may falsely depress this assay. Reference Range HDL <40 mg/dL Low HDL Cholesterol HDL >or= 60 mg/dL High HDL Cholesterol LAB L501.6500 0-130 mg/dL Test Normal not performed LDL LAB L501.6600 5-40 mg/dL Test Normal not performed VLDL Performed By: #### L500.4050, L500.4100, L501.9520, L506.0400 #### [facility] Laboratory [address] [place], [place], [id number] THYROID STIM HORMONE Collected: 05/30/2018 Status: F Source: MARY (TSH) 10:41 AM [facility] REPOSITORY TYPE CODE TESTS RESULT OUT OF RANGE REFERENCE UNITS LAB L501.9520 0.358-3.74 uIU/mL Normal TSH 0.44 Performed By: #### L500.4050, L500.4100, L501.9520, L506.0400 #### [facility] [address] [facility]. [place], [place], [id number] T4 FREE DIRECT Collected: 05/30/2018 Status: F Source: MARY 10:41 AM [facility] REPOSITORY TYPE CODE TESTS RESULT OUT OF REFERENCE UNITS RANGE LAB L506.0400 0.76-1.46 ng/dL Low T4 FREE 0.72 DIRECT Performed By: #### L500.4050, L500.4100, L501.9520, L506.0400 #### [facility] [address] [place], [address] MICROALB:CREAT Collected: 05/30/2018 Status: F Source: MARY RATIO,RANDOM UR 10:41 AM [facility] REPOSITORY TYPE CODE TESTS RESULT OUT OF RANGE REFERENCE UNITS LAB L501.1200 NO RANGE EST. mg/dL Normal UR CREAT 150.00 LAB L502.0500 NO RANGE EST. mg/L Normal 570.0 MICROALBUMIN ,UR LAB L502.0600 <30 mg/g CRE mg/g CRE High 380.0 MALB:CREAT Performed By: #### L502.0250 #### [facility] [address] [place], [address] ENDOCRINOLOGY VISIT Observed: 05/27/2018 Status: F Source: MARY REPORT 6:38 AM [facility] REPOSITORY [facility] [address] [place] [address] OFFICE VISIT Date of Service: 05/22/18 MR#: [id number] Acct: [id number] Name: REGINALDO HUFFMAN Rep #: [id number] : 1970 Provider: Scarlett Ricketts NP Age/Sex: 47/M Location: [facility] [place] Status: Signed with Addenda ADDENDUM by Scarlett Ricketts NP on 05/27/18 at 0638 Addendum entered and electronically signed by SERGE Sanders 05/27/18 06:38: Patient reports eye exam done in January 2018. HUNG Ricketts 05/27/18 0638 <Electronically signed by Scarlett VALENTINE> Date Scarlett Ricketts cc: * Signed HPI History of present illness HPI History of present illness Reginaldo Huffman s a 47 year old male who presents for follow up of diabetes type 2, Diagnosed in 2002. Previously on U-500 insulin but reports it did not work well for him. He is currently taking Lantus 80 units in the am and 110 in the pm. Meal insulin is 30+ units humalog. He brings BG written down on paper. Checking BG consistently. Has a few days when BG in normal control. Most days however he is running high. Most recently depression more severe and he has had medication added. He did start missing insulin doses and did stop checking his BG readings at [facility]. Since our last visit he denies excessive thirst, increased frequency of urination, chest pain or dyspnea. Follows a diabetic diet, Is mostly compliant with medication and is tolerating without side effects. At time of visit: -Pt denies symptoms of hypertensive emergency (CP,SOB,DUMAS, or blurred vision) and hypotension(dizziness or lightheadedness) -Pt denies symptoms of hypoglycemia ( sweaty, confusion, anxiety, tremor, hunger, palpitations) and hyperglycemia ( polydipsia, polyuria) -Pt denies potential medication adverse effect. Hypoglycemia Aware of hypoglycemia:yes Able to self treat low BG: Yes Frequent low Blood sugar: No Has supply of glucagon: Yes Diet Usually 3 meals daily, bedtime snack Does not carb count his meals Currently feels he is binge eating again Exercise Currently not walking Exam Const General: comfortable, well groomed, well hydrated Nutritional Appearance: average body habitus Orientation: oriented x3 HENMT Head: normal to inspection, normocephalic Ears: hearing grossly normal bilaterally Mouth: oral mucosae normal, moist mucous membranes Teeth and gingiva: dentition normal Eyes General: appearance normal, both eyes and all related structures Eyelids: eyelids normal Conjunctivae: conjunctivae normal Sclera: sclerae normal Pupils: PERRL Neck Neck: normal visual inspection, full ROM Resp Effort AND Inspection: normal respiratory effort, able to speak in complete sentences, symmetric chest movement Auscultation: Bilateral: Clear to Auscultation Cardio Rate: regular rate Rhythm: regular rhythm Heart Sounds: S1 normal, S2 normal GI Inspection: normal to inspection Auscultation: normal bowel sounds Palpation: soft, no guarding Musc Thoracic/Lumbar Spine: thoracic and lumbar spine normal to inspection Skin General: no rashes or lesions noted Wounds: no wounds Diabetic Foot Pulses: L dorsalis pedis pulse: normal, R dorsalis pedis pulse: normal Monofilament test: Left foot: abnormal, Right foot: abnormal Neuro General: moves all extremities, normal light touch, pain and propioception Cognition: normal cognition Speech: speech normal Gait: normal gait Extrem General: normal to inspection, normal capillary refill Psych Appearance: well kempt Mental Status: mental status grossly normal Mood: congruent mood Affect: normal affect Speech and Movement: speech and movement normal Thought Process: normal Thought Content: normal Judgment: judgment good Type: type 2, insulin-requiring Glucose control symptoms: Reports high fasting glucose and high post-meal glucose Weight and fatigue symptoms: Reports daytime sleepiness; denies snoring Cardiopulmonary symptoms: Reports lightheadedness; denies chest pain at rest, dyspnea on exertion or myalgias GI symptoms: Reports diarrhea and increased hunger; denies constipation, nausea/dyspepsia or vomiting Skin and extremity symptoms: Reports tingling/numbness/burning; denies erectile dysfunction Other symptoms: Reports blurry vision and depression; denies change in vision Pertinent visit history: Denies recent visit to ER, recent DKA or recent glucagon injection Intake Vital Signs05/22/18 Height 5 ft 10 in 05/22/18 Weight: 219 lb 4 oz 05/22/18 Body Mass Index (BMI) 31.4 05/22/18 Blood Pressure 145/91 H 05/22/18 Blood Pressure Location Lt popliteal 05/22/18 Blood Pressure Position Sitting Intake Visit Reasons: Diabetes follow-up 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 Accompanied by: Self Is patient in pain?: No Allergies erythromycin base Adverse Reaction (Severe, Verified 05/22/18 11:18) Hives loratadine [From Claritin] Adverse Reaction (Severe, Verified 05/22/18 11:18) Rash Medications Cholecalciferol (Vitamin D3) [Vitamin D3] 1,000 unit PO DAILY 10/10/13 [History Confirmed 05/22/18] Ferrous Fumarate [Iron] 18 mg PO DAILY 10/10/13 [History Confirmed 05/22/18] Lisinopril [Zestril] 20 mg PO BID 10/10/13 [History Confirmed 05/22/18] Ascorbic Acid [Vitamin C] 500 mg PO DAILY@0800 07/18/14 [History Confirmed 05/22/18] Sertraline HCl [Zoloft] 100 mg PO DAILY 07/18/14 [History Confirmed 05/22/18] Multivitamins,Therapeutic [Multivitamin] 1 tab PO DAILY 10/21/14 [History Confirmed 05/22/18] Carbamazepine [Tegretol] 400 mg PO TID 12/30/14 [History Confirmed 05/22/18] Cyanocobalamin [Vitamin B12] 500 mcg PO DAILY@0800 11/24/16 [History Confirmed 05/22/18] Rosuvastatin Calcium [Crestor] 40 mg PO DAILY 11/24/16 [History Confirmed 05/22/18] Vitamin E 1,000 unit PO DAILY 11/24/16 [History Confirmed 05/22/18] Basaglar KwikPen U-100 Insulin 100 unit/mL (3 mL) subcutaneous See Rx Instructions SC QHS #60 ml NS 10/05/17 [Rx Confirmed 05/22/18] Fenofibrate Nanocrystallized [Triglide] 160 mg PO DAILY 10/19/17 [History Confirmed 05/22/18] Humalog KwikPen (U- 100) Insulin 100 unit/mL subcutaneous 33 unit SC TID #45 ml NS 11/13/17 [Rx Confirmed 05/22/18] aripiprazole 2 mg tablet 2 mg PO QDAY 02/14/18 [History Confirmed 05/22/18] atenolol 50 mg tablet 50 mg PO BID tab 02/14/18 [History Confirmed 05/22/18] testosterone cypionate 200 mg/mL intramuscular oil 200 mg IM Q2W #1 ml 03/26/18 [Rx Confirmed 05/22/18] Admelog SoloStar U- 100 Insulin lispro 100 unit/mL subcutaneous pen 33 unit SC TID #90 ml NS 04/12/18 [Rx Confirmed 05/22/18] alcohol swabs 4 pad TOPICAL .daily #100 ea 04/17/18 [Rx Confirmed 05/22/18] Blood Sugar Diagnostic [FreeStyle Lite Strips] 1 strip SQ .MEDSUPPLY 05/01/18 [History Confirmed 05/22/18] Lancets 1 lancet SQ 4X/DAY 05/01/18 [History Confirmed 05/22/18] Pen Needle, Diabetic [Unifine Pentips Plus] 1 ea SQ 4X/DAY 05/01/18 [History Confirmed 05/22/18] Syringe, Disposable, 3 ml [Luer-Jurgen Syringe] 1 syringe SQ 4X/DAY 05/01/18 [History Confirmed 05/22/18] Nurse's Note: Blood sugars : low : 109 high : 434 [facility] Medical History Anemia (Acute) Asthma (Acute) Cancer (Acute) Carpal tunnel syndrome (Acute) Depressive disorder (Acute) Diabetes type 2, controlled (Acute) GERD (gastroesophageal reflux disease) (Acute) Hepatitis C (Acute) High cholesterol (Acute) History of alcohol abuse (Acute) Hypoglycemia (Acute) Neuropathy (Acute) Obesity (Acute) Pancreatitis (Acute) Seizure disorder (Acute) portacath placement (Acute) HTN (hypertension) (Chronic) Surgical History H/O left hemicolectomy (Acute) Hx of appendectomy (Acute) Family History Grandmother Cervical cancer Diabetes Hypertension Mother Uterine cancer Arthritis Diabetes Hypertension Grandfather Heart disease Arthritis Diabetes Hypertension Unknown Diabetes Arthritis Father Arthritis Diabetes Hypertension Sister Diabetes Hypertension Social History Smoking Status: Former smoker second hand exposure: No alcohol intake: current substance use type: does not use ROS Const Constitutional: Positive for fatigue, night sweats and change in appetite; no anorexia, body ache, chills, fever(s), frequent falls, decreased energy, malaise, weakness, weight change, sleep problems, abnormal sleep pattern, other, headache(s), snoring or excessive sweating Eyes Eyes: Positive for blurry vision; no change in vision, double vision, discharge, dry eyes, bulging eyes, floaters, visual disturbances, eye pain, light sensitivity, spots in vision, tunnel vision or other ENT ENT: No abnormal hearing, ear pain, ear discharge, ear pressure, hearing loss, tinnitus, dizziness/vertigo, balance problems, nosebleed/epistaxis, nasal congestion, nasal obstruction, nose pain, sinus pressure, sinus pain, nasal discharge, post nasal drip, headache(s), facial pain, dental pain, dry mouth, bad breath, hoarseness, lip swelling, mouth lesions, mouth pain, sore throat, tongue swelling, throat swelling, other, difficulty swallowing or neck pain Resp Respiratory: Positive for shortness of breath; no cough, change in phlegm color, chest congestion, excessive phlegm production, hemoptysis, pain on inspiration, pain with cough, snoring, stridor, wheezing or other Cardio Cardiology: Positive for generalized swelling, lightheadedness and other (fainting); no chest pain at rest, chest pain with exertion, leg pain with exertion, excessive sweating, shortness of breath, dyspnea on exertion, irregular heart rhythm, orthopnea, radiating jaw, neck or arm pain, fast heart rate, slow heart rate or palpitations Gastro GI: Positive for diarrhea; no abdominal pain, belching, bloating, change in bowel habits, change in stool character, coffee ground emesis, constipation, cramping, heartburn, difficulty swallowing, feeling full early, excessive flatus, incontinent of stools, Vomiting blood/hematemesis, blood in stool, loose stools, Black,tarry stools, nausea/dyspepsia, pain with swallowing, vomiting or other Genitourinary Male: No difficulty urinating, burning urination, painful urination, urinary incontinence, urinary frequency, urinary urgency, urinary hesitancy, urinary retention, blood in urine, Frequent nighttime urination/ nocturia, post void dribbling, suprapubic fullness, side pain, sexual problems, genital lesions, genital itching, erectile dysfunction, penile discharge, difficulty with ejaculations, blood in semen, scrotal swelling, testicle lump, testicle pain or other Musc Musculoskeletal: No abnormal walking, joint pain, back pain, deformity, joint swelling, limited range of motion, loss of height, muscle cramps, muscle weakness, decreased muscle mass, body aches, neck pain, numbness, radiating pain into limb, stiffness, tingling or other Skin Skin: No acne, hair loss, change in hair, nail changes, boil, change in skin color, dry skin, redness, excessive hair growth, yellowing of the skin, lesions, itching, rash, skin pain, skin ulcer, sores, skin swelling, wounds or other Breast Breast: No other Neuro Neurology: No frequent falls, weakness, visual disturbances, abnormal hearing, headache(s), abnormal walking, numbness or tingling Psych Psychiatric: No abnormal sleep pattern, Positive for change in appetite, Positive for depression Endo Endocrine: Positive for fatigue and increased hunger; no other or excessive sweating Aller/Imm Allergy/Immunologic: No lip swelling, tongue swelling, throat swelling, wheezing or itchy eyes Assessment AND Plan 1. Uncontrolled type 2 diabetes mellitus with hyperglycemia E11.65 Plan Reports increase in binge eating and less exercise. He feels he could benefit from diet instruction and exercise program. He does have care regarding his depression and is actively being treated. Will enroll patient in the why weight program which also has an exercise component to it. This may also add a unique modality to his care for depression Enc to find ways to assist him in ensuring he takes all doses of insulin and monitors his BG. Discussed mita sensor use. Renal function notes cr elevated and EGFR at 54. Discussed with patient. Remainder of labs done at [facility]. No copies available at time of visit. PCP working on HTN. Plan Detail Additional Comments 1. Please schedule follow up in 3 months. 2. Lab work one week before appointment. 3. Discussed importance of regular exercise and recommend starting or continuing a regular exercise program for good health. 4. The patient was encouraged to lose weight for good health 5. The importance of monitoring blood sugar regularly was reviewed. 6. The importance of monitoring the HBA1c level regularly was reviewed. 7. The importance of prper foot care and regularly checking feet to prevent sores and loss of limbs was reviewed. 8. The importance of keeping BP at or below 130/80 to prevent stroke, heart attacks, kidney failure, blindness was reviewed. Spent approximately 30 minutes with patient with over 50% of time spent in discussion and counseling regarding medication adjustment, symptoms and treatment of hypoglycemia, diet adherence, and checking BG before driving. Coding Level of Care Code Off vis,est,level 4 Diagnoses Uncontrolled type 2 diabetes mellitus with hyperglycemia E11.65 Glycemic state: with hyperglycemia 05/27/18 0637 <Electronically signed by Scarlett VALENTINE> Date Scarlett VALENTINE Cosigner Signature: Date (if applicable) CC: ONCOLOGY VISIT REPORT Observed: 05/01/2018 Status: F Source: MARY 1:49 PM [facility] REPOSITORY [facility] [place] [address] OFFICE VISIT Date of Service: 05/01/18 1330 MR#: [id number] Acct: [id number] Name: REGINALDO HUFFMAN Rep #: [id number] : 1970 From: Jimmie Ibarra MD Age/Sex: 47/M Location: OMD Status: Signed Subjective - Date of Service Date of Service:: 05/01/18 - Chief Complaint F/u for colon cancer - History of Present Illness 47-year-old man was diagnosed with right-sided colon cancer, stage IIIA(pT1 pN1a M0). He had colectomy on July 29, 2014 for invasive adenocarcinoma with mucinous differentiation tumor invaded the mucosa, lymph nodes 1 out of 40 positive. He had 12 cycles of FOLFOX from October 21, 2014 to March 24, 2015. CT scan on August 11, 2015 showed 8.5 mm hypodensity in liver which has remained stable on MRI done on April 21, 2016. He is on observation. Comes in for follow up. - Past Medical/Social History Past Medical History Past Medical History: Anemia,Asthma,Depression,Diabetes mellitus,GERD, Hepatitis C,Hyperlipidemia,Hypertension,Seizures ,Hypoglycemia Other Past Medical History: HX OF PANCREATITIS Cancer: Colon cancer Past Surgical History Surgical: Appendectomy Other Surgical History: LEFT HEMICOLECTOMY Family History Paternal Past Medical History: Diabetes mellitus,Hyperlipidemia,Hypertension Maternal Past Medical History: Diabetes mellitus,Hyperlipidemia,Hypertension, Vision problems Maternal History of Cancer: Uterine cancer Social History Smoking Status Former smoker Review of Systems Constitutional:: Denies: Fever, Sweats, Weight loss, Appetite change, Chills Cardiovascular:: Denies: Chest pain, Palpitations, Dyspnea on exertion, Orthopnea, PND, Shortness of breath Respiratory: Denies: Cough, Hemoptysis, Shortness of Breath, Wheezing Gastrointestinal:: Denies: Abdominal pain, Nausea, Vomiting, Diarrhea, Constipation, Hematochezia Genitourinary: Denies: Dysuria, Hematuria, 15, Flank pain Musculoskeletal:: Denies: Back pain, Myalgia, Arthralgia Skin: Denies: Rash, Skin Changes, Wounds Neurological:: Denies: Headache, Dizziness, Visual changes, Tinnitus, Hearing loss Psychiatric: Denies: Anxiety, Depression, Homicidal Ideations, Suicidal Ideations Vital Signs Height 5 ft 10 in Weight: 101.559 kg Weight in Pounds 223.9 lbs Pulse Ox 97 - Physical Exam General: Alert, Oriented x3, No apparent distress HEENT: Atraumatic, PERRLA, EOMI, Normocephalic Oropharynx:: Dry mucosa Neck:: Supple, Trachea midline. Negative for: JVD, bilateral Cardiac:: Regular rate, Regular rhythm, Normal S1, Normal S2. Negative for: Murmur Lungs: Clear to auscultation, Excusion symmetrical. Negative for: Rhonchi, Wheezes Abdomen:: Bowel sounds x 4, Soft, Non-tender, Non-distended. Negative for: Hepatosplenomegaly Extremities:: Negative for: Cyanosis, Edema Neurological: Neuro grossly intact Skin:: Negative for: Lesions, Rash, Petechiae, Ecchymosis Psychiatric:: Appropriate affect, Euthymic Lymphatics:: Negative for: Cervical lymphadenopathy, Supraclavicular lymphadenopathy, Axillary lymphadenopathy Laboratory Data: Laboratory Tests Carcinoembryonic Ag 1.4 1.6 Diagnostic Data: 04/24/[address]/Abdomen/Pelvis WITH Contrast IMPRESSION: Stable postoperative changes. No obstruction. No dominant mass. Hepatomegaly. Electronically Signed: Daniel Spivey MD at 17:[address]/Chest WITH Contrast IMPRESSION: Stable appearance with small nodule on the left. Electronically Signed: Daniel Spivey MD at 23:54 EDT Assessment and Plan Colon Cancer stage IIIA. No evidence of disease clinically. Plan is to continue observation. RTC 1 yrs with CBC/CMP/CT a/p. Medications: Prescriptions This Visit Medication Instructions Recorded Fenofibrate Nanocrystallized 160 mg PO DAILY 10/19/17 [Triglide] Blood Sugar Diagnostic [FreeStyle 1 strip SQ .MEDSUPPLY 05/01/18 Lite Strips] Primary Care Provider: Chriss Zhong Referring Provider: - Problem List (1) History of colon cancer Status: Chronic Code Visit Office Visits / Consults: [id number] OV L4 Est 05/01/18 1349 <Electronically signed by Jimmie Ibarra MD> Date Jimmie Ibarra MD Cosigner Signature: Date (if applicable) CC: CBC W/DIFF, AUTOMATED Collected: 04/24/2018 Status: F Source: MARY 7:10 AM [facility] REPOSITORY Order Comment: Reason for Laboratory Test . TYPE CODE TESTS RESULT OUT OF RANGE REFERENCE UNITS LAB L100.1000 4.4-11.0 K/mm3 Normal WBC 6.9 LAB L100.1200 4.6-6.2 M/mm3 Low RBC 3.86 LAB L100.1300 13.0-16.5 g/dl Low HGB 11.8 LAB L100.1400 40-54 % Low HCT 34.6 LAB L100.1500 80-94 fL Normal MCV 89.6 LAB L100.1600 27.0-32.0 pg Normal MCH 30.6 LAB L100.1700 32-36 g/gl Normal MCHC 34.1 LAB L100.1810 11.6-14.6 % Normal RDW CV 13.1 LAB L100.1820 35.1-43.9 fl Normal RDW SD 42.2 LAB L100.1900 150-450 K/mm3 Normal PLT 221 LAB L100.2000 6.2-12.0 fl Normal MPV 10.2 LAB L100.2100 47-70 % Normal NEUT% 58.0 LAB L100.2200 19-41 % Normal LY% 35.0 LAB L100.2300 0-10 % Normal MONO% 5.1 LAB L100.2400 0-5 % Normal EO% 1.3 LAB L100.2500 0-1 % Normal BASO% 0.3 LAB L100.2550 0.0-0.9 % Normal IM GRAN % 0.300 Result Comment: IG% - Immature Granulocytes (promyelocytes, myelocytes and metamyelocytes) > 1% indicates that a LEFT SHIFT is Present. LAB L100.2620 2.0-7.7 X10 3/uL Normal Absolute Neut 4.0 LAB L100.2720 0.83-4.51 X10 3/ul Normal Absolute Lymph 2.40 Performed By: #### L100.0100 #### [facility] [address] [place], [address] COMPREHENSIVE METABOLIC Collected: 04/24/2018 Status: F Source: MARY BHATT 7:10 AM [facility] REPOSITORY Order Comment: Reason for Laboratory Test . TYPE CODE TESTS RESULT OUT OF RANGE REFERENCE UNITS LAB L501.0100 74-106 mg/dL High GLU 299 Result Comment: Glucose result greater than or equal to 200 mg/dL suggests DIABETES MELLITUS per A.D.A. criteria. Please note revised GLUCOSE reference range effective 2017. LAB L501.1000 7-18 mg/dL High BUN 21 LAB L501.1100 0.70-1.30 mg/dL High CREAT,SERUM 1.47 Result Comment: The validity of the calculated GFR AND GFRAA in patients over 70 years has not been determined. Clinical correlation is essential. LAB L501.1110 >60 mL/min Low EST GFR 54 Result Comment: Non- GFR Calc LAB L501.1115 >60 mL/min Normal EST GFR - AA 65 Result Comment: GFR Calc LAB L501.1300 10-20 RATIO Normal BUN/CRE 14.3 LAB L501.1500 6.4-8.2 g/dL T Normal PROT 7.9 LAB L501.1800 3.2-5.0 g/dL Normal ALB 3.9 LAB L501.1950 2.2-4.2 g/dL Normal GLOB 4.0 LAB L501.2000 0.9-2.4 RATIO Normal A/G 1.0 LAB L501.2200 8.5-10.1 mg/dL CA Normal 9.2 LAB L501.4100 15-37 U/L Low AST 10 LAB L501.4305 45-117 U/L Low ALK P 39 LAB L501.4405 16-61 U/L Normal ALT 21 LAB L501.4600 0.20-1.00 mg/dL T Normal BILI 0.20 LAB L501.5300 136-145 mmol/L NA Normal 137 LAB L501.5600 3.5-5.1 mmol/L K Normal 4.2 LAB L501.5900 98-107 mmol/L CL Normal 101 LAB L501.6100 21.0-32.0 mmol/L Normal CO2 26.0 LAB L501.6200 5-15 Normal GAP 10 Performed By: #### L500.4050 #### [facility] [address] [place], [address] CARCINOEMBRYONIC ANTIGEN Collected: 04/24/2018 Status: F Source: MARY 7:10 AM [facility] REPOSITORY Order Comment: Reason for Laboratory Test . TYPE CODE TESTS RESULT OUT OF RANGE REFERENCE UNITS LAB L3100.2300 0.0-4.7 ng/mL Normal CEA 1.6 Result Comment: Leslie ECLIA methodology Nonsmokers <3.9 Smokers <5.6 Performed at: - [facility] [address] [id number] Animal Care Attendant: Bradley Peña PhD, Phone: [phone] Performed By: #### L3100.2300 #### [facility] (refer to report for specific site) refer to report for address and phone number ABDOMEN/PELVIS WITH Observed: 04/24/2018 Status: F Source: PIERCY CONTRAST 6:58 AM [facility] REPOSITORY [facility] Services [address] [place] [address] Abdomen/Pelvis WITH Contrast MR#: [id number] Acct: [id number] Name: REGINALDO HUFFMAN Rep #: [id number] : 1970 M 47 From: Daniel Spivey MD PCP: Nicolas Santos MD Status: REG CLI Study: Abdomen/Pelvis WITH Contrast Date of Exam: 04/24/18 Exam# [id number] Ordering Dr: Maureen Campbell [facility] [employer] [facility] STUDY: CT ABDOMEN AND PELVIS WITH CONTRAST REASON FOR EXAM: Male, 47 years old. Colon cancer follow-up. RADIATION DOSAGE (If Supplied By Facility): CTDIvol = ( 23.83 ) mGy, DLP = ( 2242.23 ) mGycm TECHNIQUE: Transaxial images were obtained from the dome of the diaphragm to the symphysis pubis with oral contrast. 100 ml of Isovue 300 contrast was administered. Sagittal and coronal images were reconstructed. Individualized dose optimization techniques were used for this CT. COMPARISON: April 10, 2017 and August 11, 2015. FINDINGS: The visualized lung bases are unremarkable. The visualized portions of the heart are within normal limits. There is hepatomegaly with diffuse hepatic enlargement. Normal gallbladder and extrahepatic biliary system. There is a stable 2.7 cm calcification in the inferior aspect of the spleen. Normal pancreas. Normal bilateral adrenal glands. Normal right kidney. There are stable 1.6 and 0.8 cm cysts in the lower pole of the left kidney. Normal visualized stomach. Normal small intestine. Postoperative changes with resection of the right colon. There is non-visualization of the appendix. There is atherosclerotic calcification of the abdominal aorta with elongation and tortuosity, but without a demonstrated aneurysm. Normal inferior vena cava. There is borderline retroperitoneal lymphadenopathy with enlarged nodes no greater than 10mm in the short axis diameter. Normal urinary bladder. There is no free fluid in the abdomen or pelvis. There are stable subcutaneous increased densities of the lower abdominal wall. Normal osseous structures. CT/Abdomen/Pelvis WITH Contrast IMPRESSION: Stable postoperative changes. No obstruction. No dominant mass. Hepatomegaly. Electronically Signed: Daniel Spivey MD at 17:31 EDT , Service support , CC: Nicolas Santos MD; Maureen Campbell NP Synthetic Filament Extruder: Signed CHEST WITH CONTRAST Observed: 04/24/2018 Status: F Source: PIERCY 6:58 AM [facility] REPOSITORY [facility] Imaging Services [address] [place] [id number] Chest WITH Contrast MR#: [id number] Acct: [id number] Name: REGINALDO HUFFMAN Mauricio Rep #: [id number] : 1970 M 47 From: Daniel Spivey MD PCP: Nicolas Santos MD Status: REG CLI Study: Chest WITH Contrast Date of Exam: 04/24/18 Exam# [id number] Ordering Dr: Maureen Campbell GLOVE PARTS INSPECTOR-C STUDY: CT CHEST WITH CONTRAST REASON FOR EXAM: Male, 47 years old. Colon cancer. RADIATION DOSAGE (If Supplied By Facility): CTDIvol = ( 23.83 ) mGy, DLP = ( 2242.23 ) mGycm TECHNIQUE: Transaxial imaging was performed following intravenous administration of 100 ml of Isovue 300 contrast material. Multiplanar coronal and sagittal images were reformatted. Individualized dose optimization techniques were used for this CT. COMPARISON: April 10, 2017 FINDINGS: There is a port on the left extending to the superior vena cava. There is stable 0.4 cm nodule in the left lower lobe, series 2 image 77/104. No dominant mass. No focal infiltrate. There is no demonstrated pleural abnormality. There are calcifications of the coronary arteries. Normal mediastinum. Normal hilar regions. Normal enhanced pulmonary arteries. Normal aorta arch and descending thoracic aorta. Mild degenerative change of the thoracic spine. There is no demonstrated abnormality of the visualized upper abdomen. CT/Chest WITH Contrast IMPRESSION: Stable appearance with small nodule on the left. Electronically Signed: Daniel Spivey MD at 23:54 EDT , Service support , CC: Nicolas Santos MD; Maureen Campbell NP Synthetic Filament Extruder: Signed OFFICE VISIT REPORT Observed: 04/18/2018 Status: F Source: MARY 1:[address] [place] [address] OFFICE VISIT Date of Service: 08/03/17 MR#: [id number] Acct: [id number] Patient: REGINALDO HUFFMAN Rep #: [id number] : 1970 Provider: Scarlett Ricketts NP Age/Sex: 46/M [place] [facility] [place]: Signed with Addenda ADDENDUM by Scarlett Ricketts NP on 04/18/18 at 1343 Addendum entered and electronically signed by SERGE Sanders 04/18/18 13:43: 08/22/18 1343 <Electronically signed by Scarlett VALENTINE> Date Scarlett Ricketts cc: * Signed ADDENDUM by Scarlett Ricketts GLOVE PARTS INSPECTOR on 04/18/18 at 1342 Addendum entered and electronically signed by SERGE Sanders 04/18/18 13:42: 04/18/18 1342 <Electronically signed by Scarlett VALENTINE> Date Scarlett Ricketts cc: * Signed Intake Vital Signs08/03/17 Weight: 215 lb 4 oz 08/03/17 Blood Pressure 124/80 08/03/17 Blood Pressure Position Sitting Intake Visit 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 Is patient in pain?: No Allergies erythromycin base Allergy (Verified 08/03/17 13:07) Hives loratadine [From Claritin] Allergy (Verified 08/03/17 13:07) Rash Medications Atenolol [Tenormin (beta mariel)] 100 mg PO BID 10/10/13 [History Confirmed 08/03/17] Cholecalciferol (Vitamin D3) [Vitamin D3] 1,000 unit PO DAILY 10/10/13 [History Confirmed 08/03/17] Ferrous Fumarate [Iron] 18 mg PO DAILY 10/10/13 [History Confirmed 08/03/17] Gemfibrozil 600 mg PO TID 10/10/13 [History Confirmed 08/03/17] Lisinopril [Zestril] 5 mg PO BID 10/10/13 [History Confirmed 08/03/17] Ascorbic Acid [Vitamin C] 500 mg PO DAILY@0800 07/18/14 [History Confirmed 08/03/17] Sertraline HCl [Zoloft] 100 mg PO DAILY 07/18/14 [History Confirmed 08/03/17] Multivitamins,Therapeutic [Multivitamin] 1 tab PO DAILY 10/21/14 [History Confirmed 08/03/17] Carbamazepine [Tegretol] 400 mg PO TID 12/30/14 [History Confirmed 08/03/17] Cyanocobalamin [Vitamin B12] 500 mcg PO DAILY@0800 11/24/16 [History Confirmed 08/03/17] Rosuvastatin Calcium [Crestor] 40 mg PO DAILY 11/24/16 [History Confirmed 08/03/17] Testosterone Cypionate [Depo-Testosterone] 100 mg IM 11/24/16 [History Confirmed 08/03/17] Vitamin E 1,000 unit PO DAILY 11/24/16 [History Confirmed 08/03/17] insulin glargine 100 unit/mL subcutaneous solution 75 unit SC BID ml 08/03/17 [History Confirmed 08/03/17] insulin lispro 100 unit/mL subcutaneous pen 30 unit SC TID ml 08/03/17 [History Confirmed 08/03/17] Office Procedures Injections testosterone: Procedure performed by: fabby Site of injection: right gluteal IM Dose of injection: 1mg Nursing Note INJECTION MAINTENANCE FLOWSHEET Patient Name: REGINALDO HUFFMAN Date Admin Medication Dosage Site Comments Admin by 08-03-17 testosterone 1mg R gluteus tolerated well 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,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 Additional Comments: Lot # [id number], Exp - 01/13 Date - 08/06/17 1042 <Electronically signed by Scarlett VALENTINE> Date Scarlett VALENTINE Cosigner Signature: Date (if applicable) CC: OFFICE VISIT REPORT Observed: 04/18/2018 Status: F Source: MARY 1:38 PM [place] [address] [address] [place] [address] OFFICE VISIT Date of Service: 01/18/18 MR#: [id number] Acct: [id number] Patient: REGINALDO HUFFMAN Rep #: [id number] : 1970 Provider: Scarlett Ricketts NP Age/Sex: 47/M Location[place] [facility] [place] Status: Signed Intake Vital Signs01/18/18 Height 5 ft 8 in 01/18/18 Weight: 213 lb 01/18/18 Body Mass Index (BMI) 32.3 01/18/18 Blood Pressure 132/78 01/18/18 Blood Pressure Location Lt popliteal 01/18/18 Blood Pressure Position Sitting Intake Visit Reasons: Injection Chief Complaint: f/u for colon cancer 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 Accompanied by: Self Allergies erythromycin base Adverse Reaction (Severe, Verified 04/05/18 10:49) Hives loratadine [From Claritin] Adverse Reaction (Severe, Verified 04/05/18 10:49) Rash Medications Cholecalciferol (Vitamin D3) [Vitamin D3] 1,000 unit PO DAILY 10/10/13 [History Confirmed 04/05/18] Ferrous Fumarate [Iron] 18 mg PO DAILY 10/10/13 [History Confirmed 04/05/18] Lisinopril [Zestril] 20 mg PO BID 10/10/13 [History Confirmed 04/05/18] Ascorbic Acid [Vitamin C] 500 mg PO DAILY@0800 07/18/14 [History Confirmed 04/05/18] Sertraline HCl [Zoloft] 100 mg PO DAILY 07/18/14 [History Confirmed 04/05/18] Multivitamins,Therapeutic [Multivitamin] 1 tab PO DAILY 10/21/14 [History Confirmed 04/05/18] Carbamazepine [Tegretol] 400 mg PO TID 12/30/14 [History Confirmed 04/05/18] Cyanocobalamin [Vitamin B12] 500 mcg PO DAILY@0800 11/24/16 [History Confirmed 04/05/18] Rosuvastatin Calcium [Crestor] 40 mg PO DAILY 11/24/16 [History Confirmed 04/05/18] Vitamin E 1,000 unit PO DAILY 11/24/16 [History Confirmed 04/05/18] alcohol swabs 4 pad TOPICAL .daily #100 ea 08/17/17 [Rx Confirmed 04/05/18] blood sugar diagnostic strips See Dose Instructions .ROUTE .MEDSUPPLY #120 ea 08/17/17 [Rx Confirmed 04/05/18] lancets 28 gauge See Dose Instructions .ROUTE .MEDSUPPLY #50 ea 08/17/17 [Rx Confirmed 04/05/18] Basaglar KwikPen U-100 Insulin 100 unit/mL (3 mL) subcutaneous See Label Instructions SC QHS #60 ml NS 10/05/17 [Rx Confirmed 04/05/18] Fenofibrate Nanocrystallized [Triglide] 160 mg PO DAILY 10/19/17 [History Confirmed 04/05/18] Humalog KwikPen (U-100) Insulin 100 unit/mL subcutaneous 33 unit SC TID #45 ml NS 11/13/17 [Rx Confirmed 04/05/18] pen needle, diabetic 31 gauge x 1/4 See Dose Instructions .ROUTE .MEDSUPPLY #100 ea 11/13/17 [Rx Confirmed 04/05/18] syringe (disposable) 3 mL See Dose Instructions .ROUTE .MEDSUPPLY #2 ea 12/06/17 [Rx Confirmed 04/05/18] aripiprazole 2 mg tablet 2 mg PO QDAY 02/14/18 [History Confirmed 04/05/18] atenolol 50 mg tablet 50 mg PO BID tab 02/14/18 [History Confirmed 04/05/18] testosterone cypionate 200 mg/mL intramuscular oil 200 mg IM Q2W #1 ml 03/26/18 [Rx Confirmed 04/05/18] Admelog SoloStar U-100 Insulin lispro 100 unit/mL subcutaneous pen 33 unit SC TID #90 ml NS 04/12/18 [Rx] Office Procedures Injections Depo-Testosterone: Procedure performed by: Jyoti Marshall Site of injection: right gluteal IM Dose of injection: 1ml Comments: lot # [id number], Exp 03/15 testosterone cyp 04/18/18 1338 <Electronically signed by Scarlett VALENTINE> Date Scarlett VALENTINE Cosigner Signature: Date (if applicable) CC: TESTOSTERONE, SERUM 4226 Collected: 02/21/2018 Status: F Source: MARY 11:32 AM [facility] REPOSITORY TYPE CODE TESTS RESULT OUT OF REFERENCE UNITS RANGE LAB L3100.5200 264-916 ng/dL Low TESTOSTER [id number] 159 Result Comment: Adult male reference interval is based on a population of healthy nonobese males (BMI <30) between 19 and 39 years old. andreea Martin.al. JCEM 2017,102;7108-1426. PMID: [id number]. Performed By: #### L3100.5200, L3400.4800 #### [facility] (refer to report for specific site) refer to report for address and phone number TESTOSTERONE FREE Collected: 02/21/2018 Status: F Source: MARY 11:32 AM [facility] REPOSITORY TYPE CODE TESTS RESULT OUT OF RANGE REFERENCE UNITS LAB L3400.4800 6.8-21.5 pg/mL Normal TEST FR 11.2 [id number] Result Comment: Performed at: [facility] [id number] Animal Care Attendant: Bradley Peña PhD, Phone: [phone] Performed at: [facility] [id number] Animal Care Attendant: Chriss Alvarado MD, Phone: [phone] Performed By: #### L3100.5200, L3400.4800 #### [facility] (refer to report for specific site) refer to report for address and phone number ENDOCRINOLOGY VISIT Observed: 02/17/2018 Status: F Source: MARY REPORT 9:20 AM [facility] REPOSITORY [facility] [address] [place] [address]. [address] [place] [address] OFFICE VISIT Date of Service: 02/14/18 MR#: [id number] Acct: [id number] Name: REGINALDO HUFFMAN Rep #: [id number] : 1970 Provider: Scarlett Ricketts NP Age/Sex: 47/M Location[place] [facility] [place] Status: Signed HPI History of present illness HPI History of present illness Reginaldo Huffman s a 47 year old male who presents for foolow up of diabetes type 2, Diagnosed in 2002. Previously on U-500 insulin but reports it did not work well for him. He is currently taking Lantus 80 units in the am and 110 in the pm. Meal insulin is 30+ units humalog. He brings BG written down on paper. Checking BG consistently. Has a few days when BG in normal control. Most days however he is running high. Most recently depression more severe and he has had medication added. He did start missing insulin doses and did stop checking his BG readings except for 1-2 times a day for some days Since our last visit he denies excessive thirst, increased frequency of urination, chest pain or dyspnea. Follows a diabetic diet, Is mostly compliant with medication and is tolerating without side effects. At time of visit: -Pt denies symptoms of hypertensive emergency (CP,SOB,DUMAS, or blurred vision) and hypotension(dizziness or lightheadedness) -Pt denies symptoms of hypoglycemia ( sweaty, confusion, anxiety, tremor, hunger, palpitations) and hyperglycemia ( polydipsia, polyuria) -Pt denies potential medication adverse effect. Hypoglycemia Aware of hypoglycemia:yes Able to self treat low BG: Yes Frequent low Blood sugar: No Has supply of glucagon: Yes Diet Usually 3 meals daily, bedtime snack Does not carb count his meals Exercise Currently not walking Glucose control symptoms: Reports high post-meal glucose Weight and fatigue symptoms: Denies snoring Cardiopulmonary symptoms: Denies chest pain at rest, dyspnea on exertion, lightheadedness or myalgias GI symptoms: Denies constipation, diarrhea, nausea/dyspepsia or vomiting Skin and extremity symptoms: Denies erectile dysfunction Other symptoms: Denies blurry vision or change in vision Self monitoring: Yes Dietary compliance: Diabetes: other (Varies) Diabetes education in past year: Yes Exam Const General: comfortable, well groomed, well hydrated Nutritional Appearance: average body habitus Orientation: oriented x3 [facility] Head: normal to inspection, normocephalic Ears: hearing grossly normal bilaterally Mouth: oral mucosae normal, moist mucous membranes Teeth and gingiva: dentition normal Eyes General: appearance normal, both eyes and all related structures Eyelids: eyelids normal Conjunctivae: conjunctivae normal Sclera: sclerae normal Pupils: PERRL Neck Neck: normal visual inspection, full ROM Resp Effort AND Inspection: normal respiratory effort, able to speak in complete sentences, symmetric chest movement Auscultation: Bilateral: Clear to Auscultation Cardio Rate: regular rate Rhythm: regular rhythm Heart Sounds: S1 normal, S2 normal GI Inspection: normal to inspection Auscultation: normal bowel sounds Palpation: soft, no guarding Musc Thoracic/Lumbar Spine: thoracic and lumbar spine normal to inspection Skin General: no rashes or lesions noted Wounds: no wounds Diabetic Foot Pulses: L dorsalis pedis pulse: normal, R dorsalis pedis pulse: normal Monofilament test: Left foot: abnormal, Right foot: abnormal Neuro General: moves all extremities, normal light touch, pain and propioception Cognition: normal cognition Speech: speech normal Gait: normal gait Extrem General: normal to inspection, normal capillary refill Psych Appearance: well kempt Mental Status: mental status grossly normal Mood: congruent mood Affect: normal affect Speech and Movement: speech and movement normal Thought Process: normal Thought Content: normal Judgment: judgment good Weight and fatigue symptoms: Denies snoring Cardiopulmonary symptoms: Reports lightheadedness; denies chest pain at rest, dyspnea on exertion or myalgias GI symptoms: Reports diarrhea; denies constipation, nausea/dyspepsia or vomiting Skin and extremity symptoms: Denies erectile dysfunction Other symptoms: Reports blurry vision; denies change in vision Intake Vital Signs02/14/18 Height 5 ft 8 in 02/14/18 Weight: 216 lb 2 oz 02/14/18 Body Mass Index (BMI) 32.8 02/14/18 Blood Pressure 131/84 02/14/18 Blood Pressure Location Lt popliteal 02/14/18 Blood Pressure Position Sitting Intake Visit Reasons: Diabetes follow-up 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 Accompanied by: Self Is patient in pain?: No Allergies erythromycin base Adverse Reaction (Severe, Verified 02/14/18 12:19) Hives loratadine [From Claritin] Adverse Reaction (Severe, Verified 02/14/18 12:19) Rash Medications Cholecalciferol (Vitamin D3) [Vitamin D3] 1,000 unit PO DAILY 10/10/13 [History Confirmed 02/14/18] Ferrous Fumarate [Iron] 18 mg PO DAILY 10/10/13 [History Confirmed 02/14/18] Lisinopril [Zestril] 20 mg PO BID 10/10/13 [History Confirmed 02/14/18] Ascorbic Acid [Vitamin C] 500 mg PO DAILY@0800 07/18/14 [History Confirmed 02/14/18] Sertraline HCl [Zoloft] 100 mg PO DAILY 07/18/14 [History Confirmed 02/14/18] Multivitamins,Therapeutic [Multivitamin] 1 tab PO DAILY 10/21/14 [History Confirmed 02/14/18] Carbamazepine [Tegretol] 400 mg PO TID 12/30/14 [History Confirmed 02/14/18] Cyanocobalamin [Vitamin B12] 500 mcg PO DAILY@0800 11/24/16 [History Confirmed 02/14/18] Rosuvastatin Calcium [Crestor] 40 mg PO DAILY 11/24/16 [History Confirmed 02/14/18] Vitamin E 1,000 unit PO DAILY 11/24/16 [History Confirmed 02/14/18] alcohol swabs 4 pad TOPICAL .daily #100 ea 08/17/17 [Rx Confirmed 02/14/18] blood sugar diagnostic strips See Dose Instructions .ROUTE .MEDSUPPLY #120 ea 08/17/17 [Rx Confirmed 02/14/18] lancets 28 gauge See Dose Instructions .ROUTE .MEDSUPPLY #50 ea 08/17/17 [Rx Confirmed 02/14/18] Basaglar KwikPen U-100 Insulin 100 unit/mL (3 mL) subcutaneous See Label Instructions SC QHS #60 ml NS 10/05/17 [Rx Confirmed 02/14/18] Fenofibrate Nanocrystallized [Triglide] 160 mg PO DAILY 10/19/17 [History Confirmed 02/14/18] Humalog KwikPen (U-100) Insulin 100 unit/mL subcutaneous 33 unit SC TID #45 ml NS 11/13/17 [Rx Confirmed 02/14/18] pen needle, diabetic 31 gauge x 1/4 See Dose Instructions .ROUTE .MEDSUPPLY #100 ea 11/13/17 [Rx Confirmed 02/14/18] syringe (disposable) 3 mL See Dose Instructions .ROUTE .MEDSUPPLY #2 ea 12/06/17 [Rx Confirmed 02/14/18] aripiprazole 2 mg tablet 2 mg PO QDAY 02/14/18 [History Confirmed 02/14/18] atenolol 50 mg tablet 50 mg PO BID tab 02/14/18 [History Confirmed 02/14/18] testosterone cypionate 200 mg/mL intramuscular oil 200 mg IM Q3W #1 ml 02/14/18 [Rx Confirmed 02/14/18] Nurse's Note: blood sugars : low : 87 high : 350 PFSH Medical History Anemia (Acute) Asthma (Acute) Cancer (Acute) Carpal tunnel syndrome (Acute) Depressive disorder (Acute) Diabetes type 2, controlled (Acute) GERD (gastroesophageal reflux disease) (Acute) Hepatitis C (Acute) High cholesterol (Acute) History of alcohol abuse (Acute) Hypoglycemia (Acute) Neuropathy (Acute) Obesity (Acute) Pancreatitis (Acute) Seizure disorder (Acute) portacath placement (Acute) HTN (hypertension) (Chronic) Surgical History H/O left hemicolectomy (Acute) Hx of appendectomy (Acute) Family History Grandmother Cervical cancer Diabetes Hypertension Mother Uterine cancer Arthritis Diabetes Hypertension Grandfather Heart disease Arthritis Diabetes Hypertension Unknown Diabetes Arthritis Father Arthritis Diabetes Hypertension Sister Diabetes Hypertension Social History Smoking Status: Former smoker second hand exposure: No alcohol intake: current substance use type: does not use ROS Const Constitutional: Positive for fatigue and night sweats; no anorexia, body ache, chills, fever(s), frequent falls, decreased energy, malaise, weakness, weight change, sleep problems, abnormal sleep pattern, change in appetite, other, headache(s), snoring or excessive sweating Eyes Eyes: Positive for blurry vision; no change in vision, double vision, discharge, dry eyes, bulging eyes, floaters, visual disturbances, eye pain, light sensitivity, spots in vision, tunnel vision or other ENT ENT: No abnormal hearing, ear pain, ear discharge, ear pressure, hearing loss, tinnitus, dizziness/vertigo, balance problems, nosebleed/epistaxis, nasal congestion, nasal obstruction, nose pain, sinus pressure, sinus pain, nasal discharge, post nasal drip, headache(s), facial pain, dental pain, dry mouth, bad breath, hoarseness, lip swelling, mouth lesions, mouth pain, sore throat, tongue swelling, throat swelling, other, difficulty swallowing or neck pain Resp Respiratory: Positive for cough; no change in phlegm color, chest congestion, excessive phlegm production, hemoptysis, pain on inspiration, shortness of breath, pain with cough, snoring, stridor, wheezing or other Cardio Cardiology: Positive for generalized swelling and lightheadedness; no chest pain at rest, chest pain with exertion, leg pain with exertion, excessive sweating, shortness of breath, dyspnea on exertion, irregular heart rhythm, orthopnea, radiating jaw, neck or arm pain, fast heart rate, slow heart rate, palpitations or other Gastro GI: Positive for diarrhea; no abdominal pain, belching, bloating, change in bowel habits, change in stool character, coffee ground emesis, constipation, cramping, heartburn, difficulty swallowing, feeling full early, excessive flatus, incontinent of stools, Vomiting blood/hematemesis, blood in stool, loose stools, Black,tarry stools, nausea/dyspepsia, pain with swallowing, vomiting or other Genitourinary Male: No difficulty urinating, burning urination, painful urination, urinary incontinence, urinary frequency, urinary urgency, urinary hesitancy, urinary retention, blood in urine, Frequent nighttime urination/ nocturia, post void dribbling, suprapubic fullness, side pain, sexual problems, genital lesions, genital itching, erectile dysfunction, penile discharge, difficulty with ejaculations, blood in semen, scrotal swelling, testicle lump, testicle pain or other Musc Musculoskeletal: Positive for numbness and tingling (r hand); no abnormal walking, joint pain, back pain, deformity, joint swelling, limited range of motion, loss of height, muscle cramps, muscle weakness, decreased muscle mass, body aches, neck pain, radiating pain into limb, stiffness or other Skin Skin: No acne, hair loss, change in hair, nail changes, boil, change in skin color, dry skin, redness, excessive hair growth, yellowing of the skin, lesions, itching, rash, skin pain, skin ulcer, sores, skin swelling, wounds or other Breast Breast: No other Neuro Neurology: Positive for numbness and tingling (r hand); no frequent falls, weakness, visual disturbances, abnormal hearing, headache(s) or abnormal walking Psych Psychiatric: No abnormal sleep pattern, No change in appetite Endo Endocrine: Positive for fatigue; no other or excessive sweating Aller/Imm Allergy/Immunologic: No lip swelling, tongue swelling, throat swelling, wheezing or itchy eyes Assessment AND Plan 1. Uncontrolled type 2 diabetes mellitus with complication, with long-term current use of insulin E11.8 2. Depression, unspecified depression type F32.9 Plan Has begun new medication. No suicide ideation. No thoughts of hurting himself or others. Does feel somewhat improved and thinks medication is helping. Is getting outside for exercise. Encouraged feeling; he reports. 3. Essential hypertension I10 4. Low testosterone in male R79.89 Plan Detail Other Medications Refilled: Additional Comments 1. Please schedule follow up in 3 months. 2. Lab work one week before appointment. 3. Discussed importance of regular exercise and recommend starting or continuing a regular exercise program for good health. 4. The patient was encouraged to lose weight for good health 5. The importance of monitoring blood sugar regularly was reviewed. 6. The importance of monitoring the HBA1c level regularly was reviewed. 7. The importance of prper foot care and regularly checking feet to prevent sores and loss of limbs was reviewed. 8. The importance of keeping BP at or below 130/80 to prevent stroke, heart attacks, kidney failure, blindness was reviewed. Spent approximately 45 minutes with patient with over 50% of time spent in discussion and counseling regarding medication adjustment, symptoms and treatment of hypoglycemia, diet adherence, and checking BG before driving. Coding Level of Care Code Off vis,est,level 4 Diagnoses Uncontrolled type 2 diabetes mellitus with complication, with long-term current use of insulin E11.8 Diabetes mellitus complication status: with unspecified complications Diabetes mellitus moth exterminator insulin use: with detention use Depression, unspecified depression type F32.9 Depression Type: unspecified Essential hypertension I10 Hypertension type: essential hypertension Low testosterone in male R79.Megan Time Spent (min) 45 02/17/18 0920 <Electronically signed by Scarlett VALENTINE> Date Scarlett VALENTINE Cosigner Signature: Date (if applicable) CC: OT FUNCTIONAL CAPACITY Observed: 01/18/2018 Status: F Source: MARY MARTÍNEZ 5:08 PM [facility] REPOSITORY [facility] [address] [place] [address] Fax REHABILITATION SERVICES INITIAL EVALUATION MR#: [id number] Acct: [id number] Name: REGINALDO HUFFMAN Rep #: [id number] : 1970 47 From: Rosangela Chicas Referring Dr.: Nicolas Santos MD Status: REG RCR Insurance: [facility] Eval Date: SELF PAY INSURANCE HP OT Functional Capacity Eval - Reference Duration Sedentary Sedentary Light Light Light Medium Medium Medium Heavy V nato Heavy Heavy - Patient Information Height: 5 ft 8 in Weight:: 96.615 kg Hand Dominance: Right Handed - Medical History Medical History Including Restrictions: trigeminal neuralgia, anemia, colon polyps, depression, diabetic, cholesterol, high BP, lumbago, chronic alcoholism, chronic pancreatitis, sebaceus cysts, elbow pain (R), neuropathy bilateral feet, colon CA - Diagnoses Diagnoses: trigeminal neuralgia, anemia, colon polyps, depression, diabetic, cholesterol, high BP, lumbago, chronic alcoholism, chronic pancreatitis, sebaceus cysts, elbow pain (R), neuropathy bilateral feet, colon CA - Symptoms Symptoms: Alvarez's Palsy Symptoms, distorted in face, blurriness in eyes (left especially), numbness L side of face, pain L side face, symptoms happen more with stress or not enough sleep. gets tired from anemia, R elbow pain, gets better after he does his arm exercises. L thumb pain no movement 3/10, with movement 8/10. - Pain Pain: According to pt, when trigeminal neuralgia takes place 10/10 pain face, pt down for about a week. Pain in R elbow 2/10. L thumb pain no movement 3/10, with movement 8/10. - Work History Work History: Currently unemployed. Has not worked since 2004. 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 - ADLS ADLS: Lives with mother, 1 story house, 3 steps to enter no handrail. Independent with AMB. Tub/shower combo, HHS, glass doors to get in/out of tub/shower, comfort height commode. Has bedside commode if needed. Independent with cooking, cleaning, sweeper, dust, mows riding mower. Independent with laundry, first floor setup. Drives. Gets Groceries uses cart and states has to pace himself. - Physical Examination ROM: BUE Limited horizontal abduction shoulders 110' when completed at the same time, horizontal abduction L shoulder only WFL, R shoulder only WFL, other BUE joints WFL all planes, BLE WFL. Strength: BUE R 3+/5, L 4/5, BLE 4/5 Right Degreasing Solution Reclaimer Strength Average: 61.66 Left Degreasing Solution Reclaimer Strength Average: 70.00 Right Lateral Pinch Average: 14.66 Left Lateral Pinch Average: 12.66 Right Tripod Pinch Average: 12.00 Left Tripod Pinch Average: 7.33 Sensation: Pt states tingling L thumb, bilateral feet numb all the time. Fine Motor: Occassionally has difficulty with buttoning small buttons pending on how his L thumb feels. Independent with writing, self feeding, and other fine motor tasks. Balance: Pt slightly unsteady with standing balance when walking. Loss of balance when standing on one foot easily. Demonstrated good righting reactions to L and R side and forward, did have to take step back when challenged with balance pushing backwards. - Non Material Handling Activities Bending: able to complete 5 bends down to toes and up with 2 losses of balance he was able to correct on his own. Unable to complete anymore secondary to dizziness. Squatting: Pt able to complete 8 squats, shakey in knees, unable to complete any more secondary to pt stated knees are going to give out. Had to hold onto table occassionally while completing squats for support. Kneeling: Pt able to complete 7 half kneels, unable to go all the way down secondary to pain in knees, 9/10 R leg, 7/10 L leg with movement. Used table on L side to help support himself during task. Reaching out/up: Pt able to reach out and up without any loss of balance. Walking: Pt able to complete 15 minute walking test around facility slow pace, occassionally unsteady. Pt stated dizzy after walk and feet tingling like crazy. Pt states occassionally feels like R knee is unstable and gives out. Standing: No sitting required during walk test. Sitting: Pt able to sit for 33 minutes before being asked to stand for evaluation without demo of pain Climbing Stairs: Pt able to climb a flight 10 steps up/down using bilateral handrails. - Dynamic Occasional Lifting Capacity Floor Lift: completed 15# max per pt Knee Lift: completed 15# max per pt Waist Lift: completed 15# max per pt Shoulder Lift: completed 15# max per pt Overhead Lift: able to lift 15# up 90', able to lift 4# box overhead max per pt Carrying: carries 15# max 20 feet Comments: According to functional activities questionnaire pt stated no i don't exercise regularly, yes I can do yard work if I pace myself and do it over the course of the day. I can sit through a movie, play or concert, I can walk around in my yard and around the block at my own pace. I am able to shop for groceries. I am able to coarry my groceries into the hosue and pout them away. I am able to do to do laundry. No I can not walk up and down the steps. I am able to cook and do housework. I am able to bath, feed and dress myself. I can drive or ride in a car for 2-3 hrs before i need to stretch. I can walk at a mall, fair or event for 1 hr before I have to sit down. I usually sit fo 1.5 to 3 hrs a day. I ususally stand/walk for 2hrs a day. I usually lie/recline for 4/6 hrs a day. My most comfortable position is lying down. <Electronically signed by Rosangela Chicas > 01/18/18 [id number] CC: Nicolas Santos MD ANDREA Signed For Medicare only, by signing this I certify the plan of care. Physicians Signature Date CARBAMAZEPINE (TEGRETOL) Collected: 01/15/2018 Status: F Source: [place] 9:51 AM [facility] REPOSITORY Order Comment: ORDERED MISC TEST FOR CARB TYPE CODE TESTS RESULT OUT OF REFERENCE UNITS RANGE LAB L501.7900 4.0-12.0 ug/mL CARBAMAZEPINE Normal 11.6 Performed By: #### L501.7900 #### [facility] [address] [place], [address] URINALYSIS, COMPLETE Collected: 01/15/2018 Status: F Source: [place] 9:50 AM [facility] REPOSITORY Order Comment: Order Date: 01/15/18 Order Info: [id number] - UAC How was Urine Obtained? QUEEN PRODUCER TO SPECIFY TYPE CODE TESTS RESULT OUT OF RANGE REFERENCE UNITS LAB L400.3000 Yellow COLOR Normal Yellow LAB L400.3050 Clear Normal CLARITY Clear LAB L400.3200 Normal mg/dl Normal GLUCOSE, UR Normal LAB L400.3300 Negative mg/dL Normal BILIRUBIN URINE Negative LAB L400.3400 Negative mg/dl Normal KETONE UR Negative LAB L400.3465 1.002-1.030 Normal SP.GR. DIPSTX 1.015 LAB L400.3550 5.0 - 8.0 pH UR Normal 5.0 LAB L400.3600 Negative mg/dl High PROT 30 DIPSTX LAB L400.3700 Normal mg/dl Normal UROBILI Normal LAB L400.3750 Negative Normal NITRITE UR Negative LAB L400.3780 Negative /ul High 10 OCCULT BLOOD-UR LAB L400.3800 Negative /ul LEUK Normal ESTERASE Negative LAB L400.4050 0-5 /hpf WBC 0 Normal SEEN LAB L400.4100 0-5 /hpf 0 Normal RBC-UA SEEN LAB L400.4150 0-5 /hpf SQUAM 0 Normal EPI SEEN LAB L400.4300 None Seen /hpf 0 Normal BACTERIA SEEN LAB L400.4350 <or=2+ /hpf 0 Normal MUCUS, URINE SEEN Performed By: #### L400.0001, L100.0500, L500.4050, L500.4100 #### [facility] [address] [place], [address] CBC-COMPLETE BLOOD CNT Collected: 01/15/2018 Status: F Source: MARY NO DIFF 9:50 AM [facility] REPOSITORY Order Comment: Order Date: 01/15/18 Order Info: [id number] - CBC TYPE CODE TESTS RESULT OUT OF RANGE REFERENCE UNITS LAB L100.1000 4.4-11.0 K/mm3 Normal WBC 5.0 LAB L100.1200 4.6-6.2 M/mm3 Low RBC 4.27 LAB L100.1300 13.0-16.5 g/dl Normal HGB 13.1 LAB L100.1400 40-54 % Low HCT 37.0 LAB L100.1500 80-94 fL Normal MCV 86.7 LAB L100.1600 27.0-32.0 pg Normal MCH 30.7 LAB L100.1700 32-36 g/gl Normal MCHC 35.4 LAB L100.1810 11.6-14.6 % Normal RDW CV 12.8 LAB L100.1820 35.1-43.9 fl Normal RDW SD 39.6 LAB L100.1900 150-450 K/mm3 Normal PLT 215 LAB L100.2000 6.2-12.0 fl Normal MPV 11.0 Performed By: #### L400.0001, L100.0500, L500.4050, L500.4100 #### [facility] [address] [place], [address] COMPREHENSIVE METABOLIC Collected: 01/15/2018 Status: F Source: [facility] 9:50 AM [facility] REPOSITORY Order Comment: Order Date: 01/15/18 Order Info: [id number] - CMP Order Info: [id number] - LIPID TYPE CODE TESTS RESULT OUT OF RANGE REFERENCE UNITS LAB L501.0100 74-106 mg/dL High GLU 139 Result Comment: Fasting Glucose result greater than or equal to 126 mg/dL suggests DIABETES MELLITUS per A.D.A. criteria. Please note revised GLUCOSE reference range effective 2017. LAB L501.1000 7-18 mg/dL High BUN 19 LAB L501.1100 0.70-1.30 mg/dL Normal CREAT,SERUM 1.27 Result Comment: The validity of the calculated GFR AND GFRAA in patients over 70 years has not been determined. Clinical correlation is essential. LAB L501.1110 >60 mL/min Normal EST GFR 64 Result Comment: Non- GFR Calc LAB L501.1115 >60 mL/min Normal EST GFR - AA 77 Result Comment: GFR Calc LAB L501.1300 10-20 RATIO Normal BUN/CRE 15.0 LAB L501.1500 6.4-8.2 g/dL High T PROT 8.4 LAB L501.1800 3.2-5.0 g/dL Normal ALB 4.3 LAB L501.1950 2.2-4.2 g/dL Normal GLOB 4.1 LAB L501.2000 0.9-2.4 RATIO Normal A/G 1.0 LAB L501.2200 8.5-10.1 mg/dL CA Normal 9.4 LAB L501.4100 15-37 U/L Low AST 12 LAB L501.4305 45-117 U/L Normal ALK P 57 LAB L501.4405 16-61 U/L Normal ALT 20 LAB L501.4600 0.20-1.00 mg/dL T Normal BILI 0.30 LAB L501.5300 136-145 mmol/L NA Normal 137 LAB L501.5600 3.5-5.1 mmol/L K Normal 4.5 LAB L501.5900 98-107 mmol/L CL Normal 103 LAB L501.6100 21.0-32.0 mmol/L Normal CO2 25.0 LAB L501.6200 5-15 Normal GAP 9 Performed By: #### L400.0001, L100.0500, L500.4050, L500.4100 #### [facility] [address] [place], [address] LIPID PROFILE Collected: 01/15/2018 Status: F Source: [place] 9:50 AM [facility] REPOSITORY Order Comment: Order Date: 01/15/18 Order Info: [id number] - CMP Order Info: [id number] - LIPID TYPE CODE TESTS RESULT OUT OF RANGE REFERENCE UNITS LAB L501.4900 200 mg/dL Normal CHOL 186 Result Comment: <200 mg/dL Desirable 200-240 mg/dL Borderline >240 mg/dL High Risk LAB L501.5000 mg/dL High TRIG 771 Result Comment: The drugs N-Acetylcysteine and Metamizole may falsely depress this assay. TRIGLYCERIDE IS GREATER THAN 400 mg/dL. LDL RESULT IS INVALID AND WILL NOT BE REPORTED. Serum Triglycerides Reference Interval Normal <150 mg/dL Borderline high 150 - 199 mg/dL High 200 - 499 mg/dL Very High > or = 500 mg/dL LAB L501.6400 mg/dL Low HDL 33 Result Comment: The drugs N-Acetylcysteine and Metamizole may falsely depress this assay. Reference Range HDL <40 mg/dL Low HDL Cholesterol HDL >or= 60 mg/dL High HDL Cholesterol LAB L501.6500 0-130 mg/dL Test Normal not performed LDL LAB L501.6600 5-40 mg/dL Test Normal not performed VLDL Performed By: #### L400.0001, L100.0500, L500.4050, L500.4100 #### [facility] [address] [place], [address] PROGRESS Observed: 12/01/2017 Status: COMPLETED Source: [place] 2:16 PM [facility] REPOSITORY HNO ID: [id number] Author: Christelle Macedo [facility] Service: (none) Author Type: (none) Type: Progress Notes Filed: 12/01/2017 2:16 PM Note Text: I spoke with reginaldo and he states he changed doctors. Dr. Zhong removed as pcp. PROGRESS Observed: 12/01/2017 Status: COMPLETED Source: [place] 2:11 PM [facility] REPOSITORY HNO ID: [id number] Author: Christelle Macedo [facility] Service: (none) Author Type: (none) Type: Progress Notes Filed: 12/01/2017 2:16 PM Note Text: [facility] CARE GAP REGISTRY DOCUMENTATION (OUTSIDE TEAMLET) Provider Action/FYI: PSR Action/FYI: Patient identified by name and date of . Last BP/Labs: Blood Pressure: Last 3 Encounter BP Readings: Date: BP: 02/24/2017 132/78 11/15/2016 138/80 09/22/2016 140/88 Lipids: Cholesterol, Total (mg/dL) Date Value 12/18/2015 223 09/21/2015 167 HDL Cholesterol (mg/dL) Date Value 12/18/2015 30 09/21/2015 30 LDL Cholesterol (mg/dL) Date Value 12/18/2015 Unable to calculate due to increased Triglycerides. See LDL-Chol, Direct. 09/21/2015 Unable to calculate due to increased Triglycerides. See LDL-Chol, Direct. Triglyceride (mg/dL) Date Value 12/18/2015 988 09/21/2015 730 HGB A1C: Lab Results Component Value Date HBA1C 9.6 07/06/2017 HBA1C 9.3 05/12/2017 HBA1C 10.1 02/09/2017 HBA1C 11.3 10/25/2016 HBA1C 11.2 07/25/2016 HBA1C 9.5 03/25/2016 HBA1C 9.8 12/18/2015 TSH: TSH (uU/mL) Date Value 11/24/2015 0.686 09/21/2015 0.374 ) ? Patient has the following care gap registry disease diagnosis:DM ? HTN ? Patient has the following open care gaps:DM - Needs dilated eye exam - HM overdue ? Last HGBA1C is NOT under 9% ? Last office visit: 02/24/2017 ? Future office visit:Follow-up DM/HTN in next available with Provider pcp, Donte Glaser, or [facility] [facility]. Health Maintenance Due: DILATED RETINAL EXAM due on 12/31/2016 DIABETIC FOOT EXAM due on 03/25/2017 Christelle Macedo Cma CNPTOUTREACH Observed: 12/01/2017 Status: COMPLETED Source: [place] 12:00 AM [facility] REPOSITORY Patient Outreach (FAMPWS) REGINALDO HUFFMAN ([id number]) 1970 M Date Time Provider Department 12/01/17 CHRISTELLE MACEDO (HELEN) FAMPWS During your visit today, we recorded the following information about you: Christelle Macedo Cma 12/01/2017 2:16 PM Signed [facility] CARE GAP REGISTRY DOCUMENTATION (OUTSIDE TEAMLET) Provider Action/FYI: PSR Action/FYI: Patient identified by name and date of . Last BP/Labs: Blood Pressure: Last 3 Encounter BP Readings: Date: BP: 02/24/2017 132/78 11/15/2016 138/80 09/22/2016 140/88 Lipids: Cholesterol, Total (mg/dL) Date Value 12/18/2015 223 09/21/2015 167 HDL Cholesterol (mg/dL) Date Value 12/18/2015 30 09/21/2015 30 LDL Cholesterol (mg/dL) Date Value 12/18/2015 Unable to calculate due to increased Triglycerides. See LDL-Chol, Direct. 09/21/2015 Unable to calculate due to increased Triglycerides. See LDL-Chol, Direct. Triglyceride (mg/dL) Date Value 12/18/2015 988 09/21/2015 730 HGB A1C: Lab Results Component Value Date HBA1C 9.6 07/06/2017 HBA1C 9.3 05/12/2017 HBA1C 10.1 02/09/2017 HBA1C 11.3 10/25/2016 HBA1C 11.2 07/25/2016 HBA1C 9.5 03/25/2016 HBA1C 9.8 12/18/2015 TSH: TSH (uU/mL) Date Value 11/24/2015 0.686 09/21/2015 0.374 ) ? Patient has the following care gap registry disease diagnosis:DM ? HTN ? Patient has the following open care gaps:DM - Needs dilated eye exam - HM overdue ? Last HGBA1C is NOT under 9% ? Last office visit: 02/24/2017 ? Future office visit:Follow-up DM/HTN in next available with Provider pcp, Donte Glaser, or [facility] [employer] [facility]. Health Maintenance Due: DILATED RETINAL EXAM due on 12/31/2016 DIABETIC FOOT EXAM due on 03/25/2017 Christelle Macedo [facility] 12/01/2017 2:16 PM Signed I spoke with reginaldo and he states he changed doctors. Dr. Zhong removed as pcp. Allergies As of Date: 12/01/2017 Noted Allergy Reaction CLARITIN (LORATADINE) 05/09/2005 4 - Hives ERYTHROMYCIN 05/09/2005 Comments: Spacey Feeling HAYFEVER (HOMEOPATHIC PRODUCTS) 04/15/2005 Date Reviewed: 02/24/2017 Reviewed by: Lorie Buck Cma - Fully Assessed Reason for Visit: PHSC/Care Gap Outreach [3605] Primary Visit Diagnosis:Type 1 diabetes mellitus without complication (HCC) [E10.9] Other Visit Diagnosis:Essential hypertension [I10] Prescriptions as of 12/01/2017 Sig: ATENOLOL 50 MG TABLET take 2 tablets by mouth twice* LISINOPRIL 5 MG TABLET take 1 tablet by mouth twice * ALCOHOL SWABS use as directed four times a * TESTOSTERONE CYPIONATE 200 MG* Inject 1 mL intramuscularly q* CARBAMAZEPINE 200 MG TABLET Take 3 tabs by mouth twice a * ROSUVASTATIN 40 MG TABLET Take 1 tablet by mouth once d* INSULIN GLARGINE (U-100) 100 * Take 50 units every morning a* BLOOD SUGAR DIAGNOSTIC STRIPS TEST BLOOD SUGARS 4 TIMES DAISY* LANCETS TEST BLOOD SUGARS 4 TIMES DAISY* GEMFIBROZIL 600 MG TABLET take 1 tablet by mouth three * TRAMADOL 50 MG TABLET Take 1 tablet by mouth every * SYRINGE WITH NEEDLE 3 ML 21 G* For use with Injectable Testo* PEN NEEDLE, DIABETIC 31 GAUGE* One needle per dose; 4 per day ATENOLOL 100 MG TABLET Take 1 tablet by mouth twice * RANITIDINE 150 MG TABLET Take 1 tablet by mouth twice * SERTRALINE 100 MG TABLET take 1 tablet by mouth once d* BLOOD-GLUCOSE METER KIT 1 Each as needed. SYRINGE WITH NEEDLE 3 ML 21 G* For testosterone injection ev* VITAMIN E (DL, ACETATE) 1,000* Take 1 capsule by mouth once * IRON (DRIED) ORAL Take 1 tablet by mouth once d* ASCORBIC ACID (VITAMIN C) 1,0* Take 1 tablet by mouth once d* CHOLECALCIFEROL (VITAMIN D3) * Take 1 capsule by mouth every* CYANOCOBALAMIN (VIT B-12) 500* Take 2 tablets by mouth once * Problem List As Of Date 12/01/2017 Noted Resolved Type 1 diabetes mellitus [E10.9] INVALID FOR* Priority: A More... Hypertension [I10] INVALID FOR* Priority: A Trigeminal neuralgia [G50.0] INVALID FOR* Priority: B More... Lumbago [M54.5] INVALID FOR* Priority: B Major depressive disorder, recurrent episode (H*INVALID FOR* Priority: A Mixed hyperlipidemia [E78.2] INVALID FOR* Priority: B CHRONIC PANCREATITIS [K86.1] INVALID FOR* Sebaceous Cyst [L72.3] INVALID FOR*09/16/2009 Sprain and Strain of Unspecified Site of Foot [*INVALID FOR*09/16/2009 Onychia and Paronychia of Toe [L03.039] INVALID FOR*09/16/2009 Cellulitis and Abscess of Trunk [L03.319, L02.2*INVALID FOR*09/16/2009 More... 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 Colon polyps [K63.5] INVALID FOR* More... Encounter Status:Closed by CHRISTELLE MACEDO CMA on 12/01/17 ENDOCRINOLOGY VISIT Observed: 10/29/2017 Status: F Source: [place] REPORT 8:48 PM [facility] REPOSITORY [facility] [address] [place] [address] [address] [place] [address] OFFICE VISIT Date of Service: 10/26/17 MR#: [id number] Acct: [id number] Name: REGINALDO HUFFMAN Rep #: [id number] : 1970 Provider: Scarlett Ricketts NP Age/Sex: 47/M Location: [facility] [place] Status: Signed HPI History of present illness Reginaldo Huffman s a 47 year old male who presents for foolow up of diabetes type 2, Diagnosed in 2002. Previously on U-500 insulin but reports it did not work well for him. He is currently taking Lantus 80 units in the am and 110 in the pm. Meal insulin is 30+ units humalog. He brings BG written down on paper. Checking BG consistently. Has a few days when BG in normal control. Most days however he is running high. States he has not been active and he was feeling depressed last month as it was his father's birthda; father one year ago. Since our last visit he denies excessive thirst, increased frequency of urination, chest pain or dyspnea. Follows a diabetic diet, Is mostly compliant with medication and is tolerating without side effects. At time of visit: -Pt denies symptoms of hypertensive emergency (CP,SOB,DUMAS, or blurred vision) and hypotension(dizziness or lightheadedness) -Pt denies symptoms of hypoglycemia ( sweaty, confusion, anxiety, tremor, hunger, palpitations) and hyperglycemia ( polydipsia, polyuria) -Pt denies potential medication adverse effect. Hypoglycemia Aware of hypoglycemia:yes Able to self treat low BG: Yes Frequent low Blood sugar: No Has supply of glucagon: Yes Diet Usually 3 meals daily, bedtime snack Does not carb count his meals Exercise Currently not walking Glucose control symptoms: Reports high post-meal glucose Weight and fatigue symptoms: Denies snoring Cardiopulmonary symptoms: Denies chest pain at rest, dyspnea on exertion, lightheadedness or myalgias GI symptoms: Denies constipation, diarrhea, nausea/dyspepsia or vomiting Skin and extremity symptoms: Denies erectile dysfunction Other symptoms: Denies blurry vision or change in vision Self monitoring: Yes Dietary compliance: Diabetes: other (Varies) Diabetes education in past year: Yes Exam Const General: comfortable, well groomed, well hydrated Nutritional Appearance: average body habitus Orientation: oriented x3 HENMT Head: normal to inspection, normocephalic Ears: hearing grossly normal bilaterally Mouth: oral mucosae normal, moist mucous membranes Teeth and gingiva: dentition normal Eyes General: appearance normal, both eyes and all related structures Eyelids: eyelids normal Conjunctivae: conjunctivae normal Sclera: sclerae normal Pupils: PERRL Neck Neck: normal visual inspection, full ROM Resp Effort AND Inspection: normal respiratory effort, able to speak in complete sentences, symmetric chest movement Auscultation: Bilateral: Clear to Auscultation Cardio Rate: regular rate Rhythm: regular rhythm Heart Sounds: S1 normal, S2 normal GI Inspection: normal to inspection Auscultation: normal bowel sounds Palpation: soft, no guarding Musc Thoracic/Lumbar Spine: thoracic and lumbar spine normal to inspection Skin General: no rashes or lesions noted Wounds: no wounds Diabetic Foot Pulses: L dorsalis pedis pulse: normal, R dorsalis pedis pulse: normal Monofilament test: Left foot: abnormal, Right foot: abnormal Neuro General: moves all extremities, normal light touch, pain and propioception Cognition: normal cognition Speech: speech normal Gait: normal gait Extrem General: normal to inspection, normal capillary refill Psych Appearance: well kempt Mental Status: mental status grossly normal Mood: congruent mood Affect: normal affect Speech and Movement: speech and movement normal Thought Process: normal Thought Content: normal Judgment: judgment good Intake Vital Signs10/26/17 Body Mass Index (BMI) 32.0 10/26/17 Blood Pressure 130/79 Intake Visit Reasons: Injection, AND DIABETES 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 Accompanied by: Self Is patient in pain?: No Allergies erythromycin base Adverse Reaction (Severe, Verified 10/26/17 10:54) Hives loratadine [From Claritin] Adverse Reaction (Severe, Verified 10/26/17 10:54) Rash Medications Atenolol [Tenormin (beta mariel)] 100 mg PO BID 10/10/13 [History Confirmed 10/26/17] Cholecalciferol (Vitamin D3) [Vitamin D3] 1,000 unit PO DAILY 10/10/13 [History Confirmed 10/26/17] Ferrous Fumarate [Iron] 18 mg PO DAILY 10/10/13 [History Confirmed 10/26/17] Lisinopril [Zestril] 20 mg PO BID 10/10/13 [History Confirmed 10/26/17] Ascorbic Acid [Vitamin C] 500 mg PO DAILY@0800 07/18/14 [History Confirmed 10/26/17] Sertraline HCl [Zoloft] 100 mg PO DAILY 07/18/14 [History Confirmed 10/26/17] Multivitamins,Therapeutic [Multivitamin] 1 tab PO DAILY 10/21/14 [History Confirmed 10/26/17] Carbamazepine [Tegretol] 400 mg PO TID 12/30/14 [History Confirmed 10/26/17] Cyanocobalamin [Vitamin B12] 500 mcg PO DAILY@0800 11/24/16 [History Confirmed 10/26/17] Rosuvastatin Calcium [Crestor] 40 mg PO DAILY 11/24/16 [History Confirmed 10/26/17] Testosterone Cypionate [Depo-Testosterone] 100 mg IM 11/24/16 [History Confirmed 10/26/17] Vitamin E 1,000 unit PO DAILY 11/24/16 [History Confirmed 10/26/17] alcohol swabs 4 pad TOPICAL .daily #100 ea 08/17/17 [Rx Confirmed 10/26/17] blood sugar diagnostic strips See Dose Instructions .ROUTE .MEDSUPPLY #120 ea 08/17/17 [Rx Confirmed 10/26/17] lancets 28 gauge See Dose Instructions .ROUTE .MEDSUPPLY #50 ea 08/17/17 [Rx Confirmed 10/26/17] pen needle, diabetic 31 gauge x 1/4 See Dose Instructions .ROUTE .MEDSUPPLY #100 ea 08/17/17 [Rx Confirmed 10/26/17] Basaglar KwikPen U-100 Insulin 100 unit/mL (3 mL) subcutaneous See Label Instructions SC QHS #60 ml NS 10/05/17 [Rx Confirmed 10/26/17] Humalog KwikPen (U-100) Insulin 100 unit/mL subcutaneous 33 unit SC TID #45 ml NS 10/05/17 [Rx Confirmed 10/26/17] Fenofibrate Nanocrystallized [Triglide] 160 mg PO DAILY 10/19/17 [History Confirmed 10/26/17] Nurse's Note: Blood sugars : Low : 137 High : 340 PFSH Medical History Anemia (Acute) Asthma (Acute) Cancer (Acute) Carpal tunnel syndrome (Acute) Depressive disorder (Acute) Diabetes type 2, controlled (Acute) GERD (gastroesophageal reflux disease) (Acute) Hepatitis C (Acute) High cholesterol (Acute) History of alcohol abuse (Acute) Hypoglycemia (Acute) Neuropathy (Acute) Obesity (Acute) Pancreatitis (Acute) Seizure disorder (Acute) portacath placement (Acute) HTN (hypertension) (Chronic) Surgical History H/O left hemicolectomy (Acute) Hx of appendectomy (Acute) Family History Grandmother Cervical cancer Diabetes Hypertension Mother Uterine cancer Arthritis Diabetes Hypertension Grandfather Heart disease Arthritis Diabetes Hypertension Unknown Diabetes Arthritis Father Arthritis Diabetes Hypertension Sister Diabetes Hypertension Social History Smoking Status: Former smoker second hand exposure: No alcohol intake: current substance use type: does not use ROS Const Constitutional: No anorexia, body ache, chills, fatigue, fever(s), frequent falls, decreased energy, malaise, night sweats, weakness, weight change, sleep problems, abnormal sleep pattern, change in appetite, other, headache(s), snoring or excessive sweating Eyes Eyes: No blurry vision, change in vision, double vision, discharge, dry eyes, bulging eyes, floaters, visual disturbances, eye pain, light sensitivity, spots in vision, tunnel vision or other ENT ENT: No abnormal hearing, ear pain, ear discharge, ear pressure, hearing loss, tinnitus, dizziness/vertigo, balance problems, nosebleed/epistaxis, nasal congestion, nasal obstruction, nose pain, sinus pressure, sinus pain, nasal discharge, post nasal drip, headache(s), facial pain, dental pain, dry mouth, bad breath, hoarseness, lip swelling, mouth lesions, mouth pain, sore throat, tongue swelling, throat swelling, other, difficulty swallowing or neck pain Resp Respiratory: No cough, change in phlegm color, chest congestion, excessive phlegm production, hemoptysis, pain on inspiration, shortness of breath, pain with cough, snoring, stridor, wheezing or other Cardio Cardiology: No chest pain at rest, chest pain with exertion, leg pain with exertion, excessive sweating, shortness of breath, dyspnea on exertion, generalized swelling, irregular heart rhythm, lightheadedness, orthopnea, radiating jaw, neck or arm pain, fast heart rate, slow heart rate, palpitations or other Gastro GI: No abdominal pain, belching, bloating, change in bowel habits, change in stool character, coffee ground emesis, constipation, cramping, diarrhea, heartburn, difficulty swallowing, feeling full early, excessive flatus, incontinent of stools, Vomiting blood/hematemesis, blood in stool, loose stools, Black,tarry stools, nausea/dyspepsia, pain with swallowing, vomiting or other Genitourinary Male: No difficulty urinating, burning urination, painful urination, urinary incontinence, urinary frequency, urinary urgency, urinary hesitancy, urinary retention, blood in urine, Frequent nighttime urination/ nocturia, post void dribbling, suprapubic fullness, side pain, sexual problems, genital lesions, genital itching, erectile dysfunction, penile discharge, difficulty with ejaculations, blood in semen, scrotal swelling, testicle lump, testicle pain or other Musc Musculoskeletal: No abnormal walking, joint pain, back pain, deformity, joint swelling, limited range of motion, loss of height, muscle cramps, muscle weakness, decreased muscle mass, body aches, neck pain, numbness, radiating pain into limb, stiffness, tingling or other Neuro Neurology: No frequent falls, weakness, visual disturbances, abnormal hearing, headache(s), abnormal walking, numbness or tingling Psych Psychiatric: No abnormal sleep pattern, No change in appetite Endo Endocrine: No fatigue, other or excessive sweating Aller/Imm Allergy/Immunologic: No lip swelling, tongue swelling, throat swelling or wheezing Assessment AND Plan Problems 1. Uncontrolled type 2 diabetes mellitus with complication, with long-term current use of insulin E11.8; E11.65; Z79.4 2. Essential hypertension I10 Plan Patient is having concerns about his financial situation. Was denied disability. HE lives with mother; father one year ago. Is taking his medication as directed and most of his injections. Not exercising and is occasionally binge eating junk food. Does not feel he needs medication or counseling. Feels winter time is his low time. BG vary significantly day to day depending on diet. Eye exam due 12/13. Control portions Food selections should be healthy Choose more low carb vegetables Avoid snacks and desserts. Drink water Exercise daily Eat more fresh foods, not canned or processed Eat more slowly HYPERTENSION Currently controlled. Plan Detail Additional Comments 1. Please schedule follow up in 3 months. 2. Lab work one week before appointment. 3. Discussed importance of regular exercise and recommend starting or continuing a regular exercise program for good health. 4. The patient was encouraged to lose weight for good health 5. The importance of monitoring blood sugar regularly was reviewed. 6. The importance of monitoring the HBA1c level regularly was reviewed. 7. The importance of prper foot care and regularly checking feet to prevent sores and loss of limbs was reviewed. 8. The importance of keeping BP at or below 130/80 to prevent stroke, heart attacks, kidney failure, blindness was reviewed. Spent approximately 30 minutes with patient with over 50% of time spent in discussion and counseling regarding medication adjustment, symptoms and treatment of hypoglycemia, diet adherence, and checking BG before driving. 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 N TYPE CODE TESTS RESULT OUT OF RANGE REFERENCE UNITS LAB L3100.5320 264-916 ng/dL Low 130 TESTOSTER,TO CASEY Result Comment: Adult male reference interval is based on a population of healthy nonobese males (BMI <30) between 19 and 39 years old. Veronica et.al. JCEM 2017,102;4271-1279. PMID: [id number]. LAB L3100.5340 5.00-21.00 ng/dL Low TESTOSTER,FREE 4.26 LAB L3100.5360 1.50-4.20 % TESTOSTER %FREE Normal 3.28 Result Comment: Performed at: - [facility] [address] [id number] Animal Care Attendant: Bradley Peña PhD, Phone: [phone] Performed at: - [facility] [address] [id number] Animal Care Attendant: Chriss Alvarado MD, Phone: [phone] Performed By: #### L3100.5310 #### [facility] (refer to report for specific site) refer to report for address and phone number CBC W/DIFF, AUTOMATED Collected: 2017 Status: C Source: MARY 11:38 AM [facility] REPOSITORY Order Comment: Order Date: 10/17/17 Order Info: 0184-1 - CBCD TYPE CODE TESTS RESULT OUT OF RANGE REFERENCE UNITS LAB L100.1000 4.4-11.0 K/mm3 Normal WBC 5.8 LAB L100.1200 4.6-6.2 M/mm3 Low RBC 3.79 LAB L100.1300 13.0-16.5 g/dl Low HGB 11.6 LAB L100.1400 40-54 % Low HCT 33.5 LAB L100.1500 80-94 fL Normal MCV 88.4 LAB L100.1600 27.0-32.0 pg Normal MCH 30.6 LAB L100.1700 32-36 g/gl Normal MCHC 34.6 LAB L100.1810 11.6-14.6 % Normal RDW CV 13.2 LAB L100.1820 35.1-43.9 fl Normal RDW SD 42.5 LAB L100.1900 150-450 K/mm3 Normal PLT 188 LAB L100.2000 6.2-12.0 fl Normal MPV 10.4 LAB L100.2620 2.0-7.7 X10 3/uL Normal Absolute Neut 3.9 Result Comment: AMENDED REPORT 10/17/171452 Absolute Neut previously reported as: 3.4 X10^3/uL LAB L100.2720 0.83-4.51 X10 3/ul Normal Absolute Lymph 1.56 Result Comment: AMENDED REPORT 10/17/17 1453 Absolute Lymph previously reported as: 1.85 X10^3/ul LAB L100.3100 MANUAL DIFF Normal CELLS COUNTED 100 LAB L100.3200 47-70 % 68 Normal SEGS LAB L100.3800 19-41 % 27 Normal LYMPH LAB L100.3900 0-10 % 3 Normal MONOCYTE LAB L100.4000 0-5 % 2 Normal EOS LAB L100.5300 1+ Normal VACUOL LAB L100.5500 ADEQ Normal PLT EST ADEQUATE LAB L100.7000 NORM C AND NORMAL C N Normal RED CELL MORPH CHROM LAB L100.7300 1+ Normal ANISO LAB L100.9900 Normal PATH REV Reviewed Result Comment: Normocytic anemia. Clinical correlation suggested. Michele Carl D.O. 10/18/17 AMENDED REPORT 10/18/17 0915 PATH REV previously reported as: December Performed By: #### L100.0100 #### [facility] [address] [place], [address] CBC W/DIFF, AUTOMATED Collected: 10/13/2017 Status: F Source: [place] 11:06 AM [facility] REPOSITORY TYPE CODE TESTS RESULT OUT OF RANGE REFERENCE UNITS LAB L100.1000 4.4-11.0 K/mm3 Normal WBC 5.3 LAB L100.1200 4.6-6.2 M/mm3 Low RBC 3.76 LAB L100.1300 13.0-16.5 g/dl Low HGB 11.6 LAB L100.1400 40-54 % Low HCT 33.1 LAB L100.1500 80-94 fL Normal MCV 88.0 LAB L100.1600 27.0-32.0 pg Normal MCH 30.9 LAB L100.1700 32-36 g/gl Normal MCHC 35.0 LAB L100.1810 11.6-14.6 % Normal RDW CV 13.1 LAB L100.1820 35.1-43.9 fl Normal RDW SD 41.6 LAB L100.1900 150-450 K/mm3 Normal PLT 210 LAB L100.2000 6.2-12.0 fl Normal MPV 10.7 LAB L100.2100 47-70 % Normal NEUT% 50.3 LAB L100.2200 19-41 % High LY% 41.7 LAB L100.2300 0-10 % Normal MONO% 4.7 LAB L100.2400 0-5 % Normal EO% 2.1 LAB L100.2500 0-1 % Normal BASO% 0.4 LAB L100.2550 0.0-0.9 % Normal IM GRAN % 0.800 Result Comment: IG% - Immature Granulocytes (promyelocytes, myelocytes and metamyelocytes) > 1% indicates that a LEFT SHIFT is Present. LAB L100.2620 2.0-7.7 X10 3/uL Normal Absolute Neut 2.7 LAB L100.2720 0.83-4.51 X10 3/ul Normal Absolute Lymph 2.22 Performed By: #### L100.0100 #### [facility] [address] [place], [address] COMPREHENSIVE METABOLIC Collected: 10/13/2017 Status: F Source: [place] BHATT 11:05 AM [facility] REPOSITORY Order Comment: Reason for Laboratory Test ROUTINE FOLLOW-UP TYPE CODE TESTS RESULT OUT OF RANGE REFERENCE UNITS LAB L501.0100 74-106 mg/dL High GLU 351 Result Comment: Glucose result greater than or equal to 200 mg/dL suggests DIABETES MELLITUS per A.D.A. criteria. Please note revised GLUCOSE reference range effective 2017. LAB L501.1000 7-18 mg/dL High BUN 22 LAB L501.1100 0.70-1.30 mg/dL Normal CREAT,SERUM 1.07 Result Comment: The validity of the calculated GFR AND GFRAA in patients over 70 years has not been determined. Clinical correlation is essential. LAB L501.1110 >60 mL/min Normal EST GFR 78 Result Comment: Non- GFR Calc LAB L501.1115 >60 mL/min Normal EST GFR - AA 95 Result Comment: GFR Calc LAB L501.1255 ml/min Normal Estimated CRCL 87.18 LAB L501.1300 10-20 RATIO High BUN/CRE 20.6 LAB L501.1500 6.4-8. g/dL Normal 2 T PROT 7.6 LAB L501.1800 3.2-5. g/dL Normal 0 ALB 3.7 LAB L501.1950 2.2-4. g/dL Normal 2 GLOB 3.9 LAB L501.2000 0.9-2. RATIO Normal 4 A/G 0.9 LAB L501.2200 8.5-10 mg/dL Normal .1 CA 9.0 LAB L501.4100 15-37 U/L Normal AST 17 Result Comment: Slight Hemolysis, Result may be falsely increased. LAB L501.4305 45-117 U/L Normal ALK P 52 LAB L501.4405 16-61 U/L Normal ALT 31 Result Comment: Please note revised ALT reference range effective 2017. LAB L501.4600 0.20-1.00 mg/dL Normal T BILI 0.30 LAB L501.5300 136-145 mmol/L Low NA 132 LAB L501.5600 3.5-5.1 mmol/L Normal K 3.9 Result Comment: Slight Hemolysis, Result may be falsely increased. LAB L501.5900 98-107 mmol/L Normal CL 98 LAB L501.6100 21.0-32.0 mmol/L Normal CO2 24.0 LAB L501.6200 5-15 Normal GAP 10 Performed By: #### L500.4050 #### [facility] [address] [place], [place], [address] #### L3100.2275 #### [facility] (refer to report for specific site) refer to report for address and phone number CEA SERIAL MONITOR Collected: 10/13/2017 Status: F Source: [place]ARY 11:05 AM [facility] REPOSITORY Order Comment: Reason for Laboratory Test ROUTINE FOLLOW-UP TYPE CODE TESTS RESULT OUT OF RANGE REFERENCE UNITS LAB L3100.2310 0.0-4.7 ng/mL Normal CEA 2139 1.4 Result Comment: Leslie ECLIA methodology Nonsmokers <3.9 Smokers <5.6 Performed at: [address] [id number] Animal Care Attendant: Bradley Peña PhD, Phone: [phone] LAB L3100.6767 Normal CEA SM GRAPH Result Comment: Scanned image report available in EMR Performed By: #### L500.4050 #### [facility] [address] [place], [place], [address] #### L3100.2275 #### [facility] (refer to report for specific site) refer to report for address and phone number OFFICE VISIT REPORT Observed: 10/08/2017 Status: F Source: MARY 7:06 PM [facility] REPOSITORY [facility] [address] [place] [address] 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 Accompanied by: Self Is patient in pain?: No Allergies erythromycin base Allergy (Verified 09/14/17 11:24) Hives loratadine [From Claritin] Allergy (Verified 09/14/17 11:24) Rash Medications Atenolol [Tenormin (beta mariel)] 100 mg PO BID 10/10/13 [History Confirmed 08/03/17] Cholecalciferol (Vitamin D3) [Vitamin D3] 1,000 unit PO DAILY 10/10/13 [History Confirmed 08/03/17] Ferrous Fumarate [Iron] 18 mg PO DAILY 10/10/13 [History Confirmed 08/03/17] Gemfibrozil 600 mg PO TID 10/10/13 [History Confirmed 08/03/17] Lisinopril [Zestril] 5 mg PO BID 10/10/13 [History Confirmed 08/03/17] Ascorbic Acid [Vitamin C] 500 mg PO DAILY@0800 07/18/14 [History Confirmed 08/03/17] Sertraline HCl [Zoloft] 100 mg PO DAILY 07/18/14 [History Confirmed 08/03/17] Multivitamins,Therapeutic [Multivitamin] 1 tab PO DAILY 10/21/14 [History Confirmed 08/03/17] Carbamazepine [Tegretol] 400 mg PO TID 12/30/14 [History Confirmed 08/03/17] Cyanocobalamin [Vitamin B12] 500 mcg PO DAILY@0800 11/24/16 [History Confirmed 08/03/17] Rosuvastatin Calcium [Crestor] 40 mg PO DAILY 11/24/16 [History Confirmed 08/03/17] Testosterone Cypionate [Depo-Testosterone] 100 mg IM 11/24/16 [History Confirmed 08/03/17] Vitamin E 1,000 unit PO DAILY 11/24/16 [History Confirmed 08/03/17] alcohol swabs 4 pad TOPICAL .daily #100 ea 08/17/17 [Rx] blood sugar diagnostic strips See Dose Instructions .ROUTE .MEDSUPPLY #120 ea 08/17/17 [Rx] lancets 28 gauge See Dose Instructions .ROUTE .MEDSUPPLY #50 ea 08/17/17 [Rx] pen needle, diabetic 31 gauge x 1/4 See Dose Instructions .ROUTE .MEDSUPPLY #100 ea 08/17/17 [Rx] Basaglar KwikPen U-100 Insulin 100 unit/mL (3 mL) subcutaneous See Label Instructions SC QHS #60 ml NS 10/05/17 [Rx] Humalog KwikPen (U-100) Insulin 100 unit/mL subcutaneous 33 unit SC TID #45 ml NS 10/05/17 [Rx] Office Procedures Injections testosterone cypionate: Procedure performed by: fabby Site of injection: left gluteal IM Dose of injection: 1ml Comments: pt tolerated without c/o 10/08/171905 <Electronically signed by Scarlett VALENTINE> Date Scarlett VALENTINE Cosigner Signature: Date (if applicable) CC: OFFICE VISIT REPORT Observed: 09/27/2017 Status: F Source: MARY 7:02 PM [place] [address] [place] [address] OFFICE VISIT Date of Service: 09/14/17 MR#: [id number] Acct: [id number] Patient: REGINALDO HUFFMAN Rep #: [id number] : 1970 Provider: Scarlett Ricketts NP Age/Sex: 46/M [place] [facility] [place] Status: Signed Intake Vital Signs09/14/17 Height 5 ft 10 in 09/14/17 Weight: 219 lb 4 oz 09/14/17 Body Mass Index (BMI) 31.4 09/14/17 Blood Pressure 148/89 09/14/17 Blood Pressure Location Lt popliteal 09/14/17 Blood Pressure Position Sitting Intake Visit 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 Accompanied by: Self Is patient in pain?: No Allergies erythromycin base Allergy (Verified 09/14/17 11:24) Hives loratadine [From Claritin] Allergy (Verified 09/14/17 11:24) Rash Medications Atenolol [Tenormin (beta mariel)] 100 mg PO BID 10/10/13 [History Confirmed 08/03/17] Cholecalciferol (Vitamin D3) [Vitamin D3] 1,000 unit PO DAILY 10/10/13 [History Confirmed 08/03/17] Ferrous Fumarate [Iron] 18 mg PO DAILY 10/10/13 [History Confirmed 08/03/17] Gemfibrozil 600 mg PO TID 10/10/13 [History Confirmed 08/03/17] Lisinopril [Zestril] 5 mg PO BID 10/10/13 [History Confirmed 08/03/17] Ascorbic Acid [Vitamin C] 500 mg PO DAILY@0800 07/18/14 [History Confirmed 08/03/17] Sertraline HCl [Zoloft] 100 mg PO DAILY 07/18/14 [History Confirmed 08/03/17] Multivitamins,Therapeutic [Multivitamin] 1 tab PO DAILY 10/21/14 [History Confirmed 08/03/17] Carbamazepine [Tegretol] 400 mg PO TID 12/30/14 [History Confirmed 08/03/17] Cyanocobalamin [Vitamin B12] 500 mcg PO DAILY@0800 11/24/16 [History Confirmed 08/03/17] Rosuvastatin Calcium [Crestor] 40 mg PO DAILY 11/24/16 [History Confirmed 08/03/17] Testosterone Cypionate [Depo-Testosterone] 100 mg IM 11/24/16 [History Confirmed 08/03/17] Vitamin E 1,000 unit PO DAILY 11/24/16 [History Confirmed 08/03/17] insulin glargine 100 unit/mL subcutaneous solution 75 unit SC BID ml 08/03/17 [History Confirmed 08/03/17] insulin lispro 100 unit/mL subcutaneous pen 30 unit SC TID ml 08/03/17 [History Confirmed 08/03/17] alcohol swabs 4 pad TOPICAL .daily #100 ea 08/17/17 [Rx] blood sugar diagnostic strips See Dose Instructions .ROUTE .MEDSUPPLY #120 ea 08/17/17 [Rx] lancets 28 gauge See Dose Instructions .ROUTE .MEDSUPPLY #50 ea 08/17/17 [Rx] pen needle, diabetic 31 gauge x 1/4 See Dose Instructions .ROUTE .MEDSUPPLY #100 ea 08/17/17 [Rx] Office Procedures Injections testosterone cypionate: Site of injection: right gluteal IM Dose of injection: 1mg Comments: lot # [id number] exp : 09/15 Assessment AND Plan Orders Orders: 09/27/17 1902 <Electronically signed by Scarlett VALENTINE> Date Scarlett VALENTINE Cosigner Signature: Date (if applicable) CC: MICROALB:CREAT Collected: 09/27/2017 Status: F Source: [facility] 11:51 AM [facility] REPOSITORY Order Comment: Order Date: 05/11/17 Order Info: [id number] - *Microalbumin, Creatine Ratio, rand urine Comments: Reason: TYPE CODE TESTS RESULT OUT OF RANGE REFERENCE UNITS LAB L501.1200 NO RANGE EST. mg/dL Normal UR CREAT 186.00 LAB L502.0500 NO RANGE EST. mg/L Normal 753.0 MICROALBUMIN ,UR LAB L502.0600 <30 mg/g CRE mg/g CRE High 404.8 MALB:CREAT Performed By: #### L502.0250 #### [facility] [address] [place], [place], [address] HEMOGLOBIN A1C Collected: 09/27/2017 Status: F Source: MARY 11:51 AM [facility] REPOS[facility]ORY Order Comment: Order Date: 05/11/17 Order Info: 4548-4 - *HgA1C TYPE CODE TESTS RESULT OUT OF RANGE REFERENCE UNITS LAB L501.9985 4.2-6.3 % High HGB A1C 8.5 Performed By: #### L501.9985 #### [facility] [address] [place], [address] COMPREHENSIVE METABOLIC Collected: 09/27/2017 Status: F Source: MARY BHATT 11:51 AM [facility] REPOSITORY Order Comment: Order Date: 05/11/17 Order Info: [id number] - *Lipid Profile Comments: Fasting 12 hours, may have water. Order Date: 05/11/17 Order Info: 0786-1 - *CMP Complete Metabolic Panel Has Patient had X-rays with Contrast this admission? N TYPE CODE TESTS RESULT OUT OF RANGE REFERENCE UNITS LAB L501.0100 70-110 mg/dL High GLU 221 Result Comment: Glucose result greater than or equal to 200 mg/dL suggests DIABETES MELLITUS per A.D.A. criteria. LAB L501.1000 7-18 mg/dL High BUN 23 LAB L501.1100 0.70-1.30 mg/dL Normal CREAT,SERUM 1.29 Result Comment: The validity of the calculated GFR AND GFRAA in patients over 70 years has not been determined. Clinical correlation is essential. LAB L501.1110 >60 mL/min Normal EST GFR 63 Result Comment: Non- GFR Calc LAB L501.1115 >60 mL/min Normal EST GFR - AA 76 Result Comment: GFR Calc LAB L501.1300 10-20 RATIO Normal BUN/CRE 17.8 LAB L501.1500 6.4-8.2 g/dL High T PROT 8.4 LAB L501.1800 3.2-5.0 g/dL Normal ALB 4.1 LAB L501.1950 2.2-4.2 g/dL High GLOB 4.3 LAB L501.2000 0.9-2.4 RATIO Normal A/G 1.0 LAB L501.2200 8.5-10.1 mg/dL CA Normal 9.4 LAB L501.4100 15-37 U/L Low AST 13 LAB L501.4305 45-117 U/L Normal ALK P 55 LAB L501.4405 16-61 U/L Normal ALT 24 Result Comment: Please note revised ALT reference range effective 2017. LAB L501.4600 0.20-1.00 mg/dL Normal T BILI 0.40 LAB L501.5300 136-145 mmol/L Normal NA 137 LAB L501.5600 3.5-5.1 mmol/L Normal K 4.4 LAB L501.5900 98-107 mmol/L Normal CL 102 LAB L501.6100 21.0-32.0 mmol/L Normal CO2 24.0 LAB L501.6200 5-15 Normal GAP 11 Performed By: #### L500.4050, L501.83068, L501.9520, L506.0400 #### [facility] [address] [place], [address] FREE T3 Collected: 09/27/2017 Status: F Source: MARY 11:51 AM [facility] REPOS[facility] Order Comment: Order Date: 05/11/17 Order Info: [id number] - *Lipid Profile Comments: Fasting 12 hours, may have water. Order Date: 05/11/17 Order Info: 0786-1 - *CMP Complete Metabolic Panel Has Patient had X-rays with Contrast this admission? N TYPE CODE TESTS RESULT OUT OF RANGE REFERENCE UNITS LAB L501.05276 2.18-3.98 pg/mL Normal FREE T3 2.7 Performed By: #### L500.4050, L501.31187, L501.9520, L506.0400 #### [facility] [address] [place], [place], [address] THYROID STIM HORMONE Collected: 09/27/2017 Status: F Source: MARY ([facility]) 11:51 AM [facility] REPOSITORY Order Comment: Order Date: 05/11/17 Order Info: [id number] - *Lipid Profile Comments: Fasting 12 hours, may have water. Order Date: 05/11/17 Order Info: 0786-1 - *CMP Complete Metabolic Panel Has Patient had X-rays with Contrast this admission? N TYPE CODE TESTS RESULT OUT OF RANGE REFERENCE UNITS LAB L501.9520 0.358-3.74 uIU/mL Normal TSH 0.44 Performed By: #### L500.4050, L501.11477, L501.9520, L506.0400 #### [facility] [address] [place], [address] T4 FREE DIRECT Collected: 09/27/2017 Status: F Source: [place] 11:51 AM [facility] REPOS[facility] Order Comment: Order Date: 05/11/17 Order Info: [id number] - *Lipid Profile Comments: Fasting 12 hours, may have water. Order Date: 05/11/17 Order Info: 0786-1 - *CMP Complete Metabolic Panel Has Patient had X-rays with Contrast this admission? N TYPE CODE TESTS RESULT OUT OF REFERENCE UNITS RANGE LAB L506.0400 0.76-1.46 ng/dL Low T4 FREE 0.69 DIRECT Performed By: #### L500.4050, L501.91007, L501.9520, L506.0400 #### [facility] [address] [place], [place], [address] LIPID PROFILE Collected: 09/27/2017 Status: F Source: MARY 11:51 AM [facility] REPOS[facility]ORY Order Comment: Order Date: 05/11/17 Order Info: [id number] - *Lipid Profile Comments: Fasting 12 hours, may have water. Order Date: 05/11/17 Order Info: 0786-1 - *CMP Complete Metabolic Panel Has Patient had X-rays with Contrast this admission? N TYPE CODE TESTS RESULT OUT OF RANGE REFERENCE UNITS LAB L501.4900 200 mg/dL Normal CHOL 158 Result Comment: <200 mg/dL Desirable 200-240 mg/dL Borderline >240 mg/dL High Risk LAB L501.5000 mg/dL High TRIG 477 Result Comment: The drugs N-Acetylcysteine and Metamizole may falsely depress this assay. TRIGLYCERIDE IS GREATER THAN 400 mg/dL. LDL RESULT IS INVALID AND WILL NOT BE REPORTED. Serum Triglycerides Reference Interval Normal <150 mg/dL Borderline high 150 - 199 mg/dL High 200 - 499 mg/dL Very High > or = 500 mg/dL LAB L501.6400 mg/dL Low HDL 31 Result Comment: The drugs N-Acetylcysteine and Metamizole may falsely depress this assay. Reference Range HDL <40 mg/dL Low HDL Cholesterol HDL >or= 60 mg/dL High HDL Cholesterol LAB L501.6500 0-130 mg/dL Test Normal not performed LDL LAB L501.6600 5-40 mg/dL Test Normal not performed VLDL Performed By: #### L500.4100 #### [facility] [address] [place], [address] OBSOLETE Observed: 09/20/2017 Status: COMPLETED Source: [place] 12:00 AM [facility] REPOSITORY Refill (FAMPWS) NATHANAELREGINALDO ([id number]) 1970 M Date Time Provider Department 09/20/17 CHRISS ZHONG During your visit today, we recorded the following information about you: Patricia Young MD 09/20/2017 3:02 PM Signed OK to refill as ordered MD Kari Zaragoza Ma 09/20/2017 3:13 PM Signed The following approved medication requests have been transmitted electronically. Signed Prescriptions Disp Refills lisinopril (ZESTRIL, PRINIVIL) 5 mg tablet 60 tablet 0 Sig: take 1 tablet by mouth twice a day JULIEN: No Authorizing Provider: PATRICIA YOUNG Ma Allergies As of Date: 09/20/2017 Noted Allergy Reaction CLARITIN (LORATADINE) 05/09/2005 4 - Hives ERYTHROMYCIN 05/09/2005 Comments: Spacey Feeling HAYFEVER (HOMEOPATHIC PRODUCTS) 04/15/2005 Date Reviewed: 02/24/2017 Reviewed by: Lorie [employer]Bck Press Pipe Inspector - Fully Assessed Reason for Visit: Refill Request [94] Order(s):lisinopril (ZESTRIL, PRINIVIL) 5 mg tablettake 1 tablet by mouth twice a dayDisp: 60 tabletRfl: 0 Prescriptions as of 09/20/2017 Sig: LISINOPRIL 5 MG TABLET take 1 tablet by mouth twice * ALCOHOL SWABS use as directed four times a * TESTOSTERONE CYPIONATE 200 MG* Inject 1 mL intramuscularly q* CARBAMAZEPINE 200 MG TABLET Take 3 tabs by mouth twice a * ROSUVASTATIN 40 MG TABLET Take 1 tablet by mouth once d* INSULIN GLARGINE 100 UNIT/ML * Take 50 units every morning a* BLOOD SUGAR DIAGNOSTIC STRIPS TEST BLOOD SUGARS 4 TIMES DAISY* LANCETS TEST BLOOD SUGARS 4 TIMES DAISY* GEMFIBROZIL 600 MG TABLET take 1 tablet by mouth three * TRAMADOL 50 MG TABLET Take 1 tablet by mouth every * SYRINGE WITH NEEDLE 3 ML 21 G* For use with Injectable Testo* PEN NEEDLE, DIABETIC 31 GAUGE* One needle per dose; 4 per day ATENOLOL 100 MG TABLET Take 1 tablet by mouth twice * RANITIDINE 150 MG TABLET Take 1 tablet by mouth twice * SERTRALINE 100 MG TABLET take 1 tablet by mouth once d* BLOOD-GLUCOSE METER KIT 1 Each as needed. SYRINGE WITH NEEDLE 3 ML 21 G* For testosterone injection ev* VITAMIN E (DL, ACETATE) 1,000* Take 1 capsule by mouth once * IRON (DRIED) ORAL Take 1 tablet by mouth once d* ASCORBIC ACID (VITAMIN C) 1,0* Take 1 tablet by mouth once d* CHOLECALCIFEROL (VITAMIN D3) * Take 1 capsule by mouth every* CYANOCOBALAMIN (VIT B-12) 500* Take 2 tablets by mouth once * Problem List As Of Date 09/20/2017 Noted Resolved Type 1 diabetes mellitus [E10.9] INVALID FOR* Priority: A More... Hypertension [I10] INVALID FOR* Priority: A Trigeminal neuralgia [G50.0] INVALID FOR* Priority: B More... Lumbago [M54.5] INVALID FOR* Priority: B Major depressive disorder, recurrent episode (H*INVALID FOR* Priority: A Mixed hyperlipidemia [E78.2] INVALID FOR* Priority: B CHRONIC PANCREATITIS [K86.1] INVALID FOR* Sebaceous Cyst [L72.3] INVALID FOR*09/16/2009 Sprain and Strain of Unspecified Site of Foot [*INVALID FOR*09/16/2009 Onychia and Paronychia of Toe [L03.039] INVALID FOR*09/16/2009 Cellulitis and Abscess of Trunk [L03.319, L02.2*INVALID FOR*09/16/2009 More... 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 Colon polyps [K63.5] INVALID FOR* More... Prescriptions ordered this encounter Disp Refills Start End LISINOPRIL 5 MG TABLET 60 t* 0 09/20/2017 Sig: take 1 tablet by mouth twice a day Medications Discontinued During This Encounter lisinopril (ZESTRIL, PRINIVIL) 5 mg * 60 t* 11 08/18/2016 09/20/2017 Sig: take 1 tablet by mouth twice a day Disc: Reason for discontinue is not on file. Encounter Status:Closed by KARI PORRAS MA on 09/20/17 ALLERGIES ALLERGIES DATE TYPE / CODE NAME / CODE REACTION SEVERITY SOURCE 09/06/2018 Drug erythromycin Hives [place] Allergy/416 base/[id number](RXN [facility] 560356([facility] ED CT) Repository 09/06/2018 Drug loratadine/[id number] Rash SV [place] Allergy/416 09(RXNORM) [facility] [id number]([facility] ED CT) Repository ENCOUNTERS ENCOUNTERS ADMIT/DISCHARGE ACCOUNT ADMITTING ENCOUNTER LOCATION SOURCE NUMBER CLASS 09/14/2018 [id number] Ambulatory [facility] ing:NS Repository 09/06/2018/ [id number] Ambulatory BMSBuilding:B [place] 9 4 [facility] Repository 08/23/2018 [id number] Ambulatory [place] [facility] ing:ONC Repository 08/23/2018/ [id number] Ambulatory BMSBuilding:B [place] 8 4 [facility] Repository 08/22/2018 [id number] Ambulatory [place] [facility] ing:LAB Repository 08/14/2018/ [id number] Ambulatory BMSBuilding:B [facility] 8 5 [facility] Repository 08/10/2018/ [id number] Ambulatory [place] [facility] ing:NS Repository 08/10/2018 [id number] Ambulatory [place] 3 [facility] ing:LAB Repository 08/09/2018/ [id number] Ambulatory BMSBuilding:B [place] 8 5 [facility] Repository 07/27/2018/ [id number] Ambulatory [place] [facility] ing:NS Repository 07/26/2018/ [id number] Ambulatory BMSBuilding:B [facility] 8 6 [facility] Repository 07/12/2018/ [id number] Ambulatory BMSBuilding:B [place] 8 4 [facility] Repository 06/28/2018/ [id number] Ambulatory BMSBuilding:B [facility] 8 3 [facility] Repository 06/14/2018/ [id number] Ambulatory BMSBuilding:B [place] 8 1 [facility] Repository 05/31/2018/ [id number] Ambulatory BMSBuilding:B [place] 8 1 [facility] Repository 05/30/2018 [id number] Amb[place] [facility] ing:LAB Repository 05/22/2018/ [id number] Ambulatory BMSBuilding:B [place] 8 8 [facility] Repository 05/17/2018/ [id number] Ambulatory BMSBuilding:B [place] 8 6 [facility] Repository 05/03/2018/ [id number] Ambulatory BMSBuilding:B [facility] 8 0 [facility] Repository 05/01/2018 [id number] Ambulatory BMSBuilding:B [facility] 8 [facility] Repository 04/24/2018 [id number] [place] [facility] ing:CT Repository 04/19/2018/ [id number] Ambulatory BMSBuilding:B [place] 8 4 [facility] Repository 04/05/2018/ [id number] Ambulatory BMSBuilding:B [facility] 8 0 [facility] Repository 03/22/2018/ [id number] Ambulatory BMSBuilding:B [place] 8 4 [facility] Repository 03/21/2018 [id number] [facility] [facility]ONC Repository 03/01/2018/ [id number] Ambulatory BMSBuilding:B [place] 8 8 [facility] Repository 02/14/2018/ [id number] Ambulatory BMSBuilding:B [facility] 8 3 [facility] Repository 02/08/2018 [id number] Ambulatory BMS Mary [address] [place] [address] Repository 02/08/2018/ [id number] Ambulatory BMSBuilding:B [facility] 8 6 [facility] Repository 01/18/2018/ [id number] Ambulatory BMSBuilding:B [place] 8 5 [facility] Repository 01/17/2018/ [id number] Ambulatory [place] 8 6 [facility] ing[facility]OT Repository 01/15/2018 [id number] Ambulatory [place] 4 [facility] ing:MTLAB Repository 12/28/2017/ [id number] Ambulatory BMSBuilding:B [facility] 8 4 [facility] Repository 12/07/2017/ [id number] Ambulatory BMSBuilding:B [place] 8 0 [facility] Repository 11/16/2017/ [id number] Ambulatory BMSBuilding:B [place] 8 3 [facility] Repository 10/26/2017/ [id number] Ambulatory BMSBuilding:B [facility] 8 3 [facility] Repository 10/19/2017 [id number] Ambulatory [place] 5 [facility] ing:LAB Repository 10/18/2017 [id number] Ambulatory BMSBuilding:B [facility] 6 [facility] Repository 2017 [id number] Ambulatory [facility] [place] [facility] ing:MTLAB Repository 10/12/2017 [id number] Ambulatory BMSBuilding:B [place] 7 [facility] Repository 10/05/2017/ [id number] Ambulatory BMSBuilding:B [facility] 8 0 [facility] Repository 09/27/2017 [id number] Ambulatory [place] [facility] ing:LAB Repository 09/14/2017/ [id number] Ambulatory BMSBuilding:B [facility] 8 5 [facility] Repository 08/03/2017/ [id number] Ambulatory BMSBuilding:B [facility] 7 4 [facility] Repository PAYERS PAYERS ENCOUNTER GUARANTOR PAYER SUBSCRIBER SOURCE 09/14/2018 REGINALDO D Primary REGINALDO D [place] [id number] STAHR Insurance:CARESOURCEP WARNERDOB: [facility] Number: [id number] Hospital 97674Pux: 330 [id number] Repository [phone] () Date:2018-07-02 [address]Attn: [place] [address]GO: 09/14/2018 Secondary NOT GIVENUNK Mary Insurance:SELF PAY [facility] Number: Effective Repository Date:2018-08-28 09/06/2018 REGINALDO D Primary REGINALDO D [place] [id number] STAHR Insurance:CARESOURCEP WARNERDOB: [facility] Number: [id number] Hospital 037[address]Rgg: 330 [id number] Repository [phone] () Date:2018-08-23 [address]Attn: [place] [address]EP: 09/06/2018 Secondary NOT GIVENUNK Mary Insurance:SELF PAY [facility] Number: Effective Repository Date:2018-09-06 08/23/2018 REGINALDO D Primary REGINALDO D [place] [id number] STAHR Insurance:CARESOURCEP [facility] Number: [id number] Hospital 885[address]Ezn: [phone]) [id number] Repository [phone] (HP) Date:2016-10-26[address]Attn: [place] [address]OE: 08/23/2018 Secondary NOT GIVENUNK [place] Insurance:SELF PAY [facility] Number: Effective Repository Date:2016-11-22 08/23/2018 REGINALDO D Primary REGINALDO D Mary [id number] STAHR Insurance:CARESOURCEP NATHANAELDOB: [facility] Number: [id number] Hospital [address]Mcl: [phone]) [id number] Repository [phone] () Date:2018-08-09[address]Attn: [place] [address]XP: 08/23/2018 Secondary NOT GIVENUNK [place] Insurance:SELF PAY [facility] Number: Effective Repository Date:2018-08-23 08/22/2018 REGINALDO D Primary REGINALDO D Mary [id number] STAHR Insurance:CARESOURCEP [facility]ERDOB: [facility] Number: [id number] Hospital 818[address]Ksg: [phone]) [id number] Repository [phone] () Date:2018-08-22[address]Attn: [place] [address]KM: 08/22/2018 Secondary NOT GIVENUNK Mary Insurance:SELF PAY [facility] Number: Effective Repository Date:2018-08-22 08/14/2018 REGINALDO D Primary REGINALDO D Mary [id number] STAHR Insurance:CARESOURCEP NATHANAELDOB: [facility] Number: [id number] Hospital 690[address]Jsd: [phone] [id number] Repository [phone] () Date:2018-05-22[address]Attn: [place] [address]RQ: 08/14/2018 Secondary NOT GIVENUNK [place] Insurance:SELF PAY [facility] Number: Effective Repository Date:2018-08-14 08/10/2018 REGINALDO D Primary REGINALDO D [place] [id number] STAHR Insurance:CARESOURCEP WARNERDOB: [facility] Number: [id number] Hospital 75[address]Nkt: [phone]) [id number] Repository [phone] () Date:2018-07-02 [address]Attn: [place] [address]LD: 08/10/2018 Secondary NOT GIVENUNK Mary Insurance:SELF PAY [facility] Number: Effective Repository Date:2018-07-28 08/10/2018 REGINALDO D Primary REGINALDO D Mary [id number] STAHR Insurance:CARESOURCEP WARNERDOB: [facility] Number: [id number] Hospital 91831Rff: [phone] [id number] Repository [phone] () Date:2018-08-10[address]Attn: [place] [address]AW: 08/10/2018 Secondary NOT GIVENUNK [place] Insurance:SELF PAY [facility] Number: Effective Repository Date:2018-08-10 08/09/2018 REGINALDO D Primary REGINALDO D [place] [id number] STAHR Insurance:CARESOURCEP WARNERDOB: [facility] Number: [id number] Hospital 601[address]Ivb: [phone]) [id number] Repository [phone] () Date:2018-07-12[address]Attn: [place] [address]EE: 08/09/2018 Secondary NOT GIVENUNK Mary Insurance:SELF PAY [facility] Number: Effective Repository Date:2018-08-09 07/27/2018 REGINALDO D Primary REGINALDO D [place] [id number] STAHR Insurance:CARESOURCEP [facility]ERDOB: [facility] Number: [id number] Hospital 717[address]Qdp: [phone] [id number] Repository [phone] () Date:2018-07-02 [address]Attn: [place] [address]PW: 07/27/2018 Secondary NOT GIVENUNK Mary Insurance:SELF PAY [facility] Number: Effective Repository Date:2018-07-02 07/26/2018 REGINALDO D Primary REGINALDO D [place] [id number] STAHR Insurance:CARESOURCEP WARNERDOB: [facility] Number: [id number] Hospital 07643Vhl: [phone]) [id number] Repository [phone] () Date:2018-07-12[address]Attn: Claims [place] [address]WP: 07/26/2018 Secondary NOT GIVENUNK [place] Insurance:SELF PAY [facility] Number: Effective Repository Date:2018-07-26 07/12/2018 REGINALDO D Primary REGINALDO D Mary [id number] STAHR Insurance:CARESOURCEP [facility]ERDOB: [facility] Number: [id number] Hospital [address]Yxl: ([phone]) [id number] Repository [phone] () Date:2018-06-14 [address]Attn: Claims [place] [address]WP: 07/12/2018 Secondary NOT GIVENUNK [place] Insurance:SELF PAY [facility] Number: Effective Repository Date:2018-07-12 06/28/2018 REGINALDO D Primary REGINALDO D [place] [id number] STAHR Insurance:CARESOURCEP [facility] Number: [id number] Hospital 06992Qii: [phone]) [id number] Repository [phone] () Date:2018-06-14[address]Attn: [place] [address]OP: 06/28/2018 Secondary NOT GIVENUNK Mary Insurance:SELF PAY [facility] Number: Effective Repository Date:2018-06-28 06/14/2018 REGINALDO D Primary REGINALDO D [place] [id number] STAHR Insurance:CARESOURCEP WARNERDOB: [facility] Number: [id number] Hospital 9300[address]Hjg: [phone] [id number] Repository [phone] (HP) Date:2018-05-31P [address]Attn: [place] [address]NF: 06/14/2018 Secondary NOT GIVENUNK Mary Insurance:SELF PAY [facility] Number: Effective Repository Date:2018-06-14 05/31/2018 REGINALDO D Primary REGINALDO D Mary [id number] STAHR Insurance:CARESOURCEP WARNERDOB: [facility] Number: [id number] Hospital 42[address]Ddv: [phone] [id number] Repository [phone] (HP) Date:2018-05-17P [address]Attn: [place] [address]OL: 05/31/2018 Secondary NOT GIVENUNK [place] Insurance:SELF PAY [facility] Number: Effective Repository Date:2018-05-31 05/30/2018 REGINALDO D Primary REGINALDO D Mary [id number] STAHR Insurance:CARESOURCEP WARNERDOB: [facility] Number: [id number] Hospital 96083Vsv: [phone] [id number] Repository [phone] (HP) Date:2018-05-30[address]Attn: [place] [address]RT: 05/30/2018 Secondary NOT GIVENUNK [place] Insurance:SELF PAY [facility] Number: Effective Repository Date:2018-05-30 05/22/2018 REGIANLDO D Primary REGINALDO D Mary [id number] STAHR Insurance:CARESOURCEP WARNERDOB: [facility] Number: [id number] Hospital 43786Kcd: [phone] [id number] Repository [phone] (HP) Date:2018-02-14P [address]Attn: [place] [address]MH: 05/22/2018 Secondary NOT GIVENUNK [place] Insurance:SELF PAY [facility] Number: Effective Repository Date:2018-05-22 05/17/2018 REGINALDO D Primary REGINALDO D [place] [id number] STAHR Insurance:CARESOURCEP WARNERDOB: [facility] Number: [id number] Hospital 55171Kun: [phone]) [id number] Repository [phone] () Date:2018-05-03[address]Attn: [place] [address]DN: 05/17/2018 Secondary NOT GIVENUNK [place] Insurance:SELF PAY [facility] Number: Effective Repository Date:2018-05-17 05/03/2018 REGINALDO D Primary REGINALDO D [place] [id number] STAHR Insurance:CARESOURCEP [facility]ERDOB: [facility] Number: [id number] Hospital 716[address]Uap: [phone]) [id number] Repository [phone] (HP) Date:2018-04-19P [address]Attn: [place] [address]TT: 05/03/2018 Secondary NOT GIVENUNK [place] Insurance:SELF PAY [facility] Number: Effective Repository Date:2018-05-03 05/01/2018 REGINALDO D Primary REGINALDO D Mary [id number] STAHR Insurance:CARESOURCEP WARNERDOB: [facility] Number: [id number] Hospital 314[address]Ahg: [phone]) [id number] Repository [phone] (HP) Date:2016-10-26[address]Attn: [place] [address]IU: 05/01/2018 Secondary NOT GIVENUNK [place] Insurance:SELF PAY [facility] Number: Effective Repository Date:2018-05-01 04/24/2018 REGINALDO D Primary REGINALDO D [place] [id number] [place] Insurance:CARESOURCEP WARNERDOB: [facility] Number: [id number] Hospital 614[address]Tae: [phone]) [id number] Repository [phone] (HP) Date:2017-10-18P [address]Attn: [place] [address]UX: 04/24/2018 Secondary NOT GIVENUNK [place] Insurance:SELF PAY [facility] Number: Effective Repository Date:2017-10-18 04/19/2018 REGINALDO D Primary REGINALDO D Mary [id number] [place] Insurance:CARESOURCEP WARNERDOB: [facility] Number: [id number] Hospital 374[address]Iwz: [phone]) [id number] Repository [phone] (HP) Date:2018-04-05P [address]Attn: [place] [address]ED: 04/19/2018 Secondary NOT GIVENUNK Mary Insurance:SELF PAY [facility] Number: Effective Repository Date:2018-04-19 04/05/2018 REGINALDO D Primary REGINALDO D [place] [id number] [place] Insurance:CARESOURCEP WARNERDOB: [facility] Number: [id number] Hospital 45[address]Abj: [phone]) [id number] Repository [phone] (HP) Date:2018-03-22P [address]Attn: [place] [address]KM: 04/05/2018 Secondary NOT GIVENUNK Mary Insurance:SELF PAY [facility] Number: Effective Repository Date:2018-04-05 03/22/2018 REGINALDO D Primary REGINALDO D [place] [id number] [place] Insurance:CARESOURCEP WARNERDOB: [facility] Number: [id number] Hospital [address]Bqt: [phone]) [id number] Repository [phone] () Date:2018-03-01[address]Attn: [place] [address]TF: 03/22/2018 Secondary NOT GIVENUNK Mary Insurance:SELF PAY [facility] Number: Effective Repository Date:2018-03-22 03/21/2018 REGINALDO D Primary REGINALDO D Mary [id number] STAHR Insurance:CARESOURCEP WARNERDOB: [facility] Number: [id number] Hospital 67331Gec: [phone]) [id number] Repository [phone] () Date:2017-02-25[address]Attn: [place] [address]WC: 03/21/2018 Secondary NOT GIVENUNK Mary Insurance:SELF PAY [facility] Number: Effective Repository Date:2017-01-17 03/01/2018 REGNIALDO D Primary REGINALDO D Amry [id number] [place] Insurance:CARESOURCEP WARNERDOB: [facility] Number: [id number] Hospital 96[address]Pco: [phone]) [id number] Repository [phone] () Date:2018-02-08[address]Attn: [place] [address]AZ: 03/01/2018 Secondary NOT GIVENUNK [place] Insurance:SELF PAY [facility] Number: Effective Repository Date:2018-03-01 02/14/2018 REGINALDO D Primary REGINALDO D [place] [id number] [place] Insurance:CARESOURCEP WARNERDOB: [facility] Number: [id number] Hospital 753[address]Yzm: [phone]) [id number] Repository [phone] (HP) Date:2017-12-07 [address]Attn: [place] [address]YO: 02/14/2018 Secondary NOT GIVENUNK Mary Insurance:SELF PAY [facility] Number: Effective Repository Date:2018-02-14 02/08/2018 REGINALDO D Primary REGINALDO D Mary [id number] [place] Insurance:CARESOURCEP WARNERDOB: [facility] Number: [id number] Hospital 02[address]Emn: [id number] Repository [phone] Date:2018-02-08P O -3 () [address]Attn: [place] [address]PV: 02/08/2018 Secondary NOT GIVENUNK [place] Insurance:SELF PAY [facility] Number: Effective Repository Date:2018-02-08 02/08/2018 REGINALDO D Primary REGINALDO D [place] [id number] [place] Insurance:CARESOURCEP WARNERDOB: [facility] Number: [id number] Hospital [address]Waz: [id number] Repository [phone] Date:2018-01-18P O -3 () [address]Attn: [place] [address]UH: 02/08/2018 Secondary NOT GIVENUNK [place] Insurance:SELF PAY [facility] Number: Effective Repository Date:2018-02-08 01/18/2018 REGINALDO D Primary REGINALDO D Mary [id number] [place] Insurance:CARESOURCEP WARNERDOB: [facility] Number: [id number] Hospital 32[address]Ohw: 330 [id number] Repository [phone] (HP) Date:2017-12-07 [address]Attn: [place] [address]LM: 01/18/2018 Secondary NOT GIVENUNK [place] Insurance:SELF PAY [facility] Number: Effective Repository Date:2018-01-18 01/17/2018 REGINALDO D Primary REGINALDO D [place] [id number] [place] Insurance:CARESOURCEP WARNERDOB: [facility] Number: [id number] Hospital 884[address]Pyy: [phone]) [id number] Repository [phone] (HP) Date:2017-02-25P [address]Attn: [place] [address]ES: 01/17/2018 Secondary NOT GIVENUNK Mary Insurance:SELF PAY [facility] Number: Effective Repository Date:2018-01-12 01/15/2018 REGINALDO D Primary REGINALDO D [place] [id number] [place] Insurance:CARESOURCEP WARNERDOB: [facility] Number: [id number] Hospital [address]Ull: [id number] Repository [phone] Date:2018-01-15P O -3 () [address]Attn: [place] [address]HH: 01/15/2018 Secondary NOT GIVENUNK [place] Insurance:SELF PAY [facility] Number: Effective Repository Date:2018-01-15 12/28/2017 REGINALDO D Primary REGINALDO D Mary [id number] [place] Insurance:CARESOURCEP WARNERDOB: [facility] Number: [id number] Hospital [address]Rri: [id number] Repository [phone] Date:2017-12-07 O -3 () [address]Attn: [place] [address]JW: 12/28/2017 Secondary NOT GIVENUNK [place] Insurance:SELF PAY [facility] Number: Effective Repository Date:2017-12-28 12/07/2017 REGINALDO D Primary REGINALDO D [place] [id number] [place] Insurance:CARESOURCEP WARNERDOB: [facility] Number: [id number] Hospital 48[address]Pby: [id number] Repository [phone] Date:2017-11-16P O -3 (HP) [address]Attn: [place] [address]FB: 12/07/2017 Secondary NOT GIVENUNK [place] Insurance:SELF PAY [facility] Number: Effective Repository Date:2017-12-07 11/16/2017 REGINALDO D Primary REGINALDO D [place] [id number] STAHR Insurance:CARESOURCEP [facility]: [facility] Number: [id number] Hospital 16[address]Foz: 330 [id number] Repository [phone] (HP) Date:2017-10-26[address]Attn: [place] [address]WT: 11/16/2017 Secondary NOT GIVENUNK Mary Insurance:SELF PAY [facility] Number: Effective Repository Date:2017-11-16 10/26/2017 REGINALDO D Primary REGINALDO D Mary [id number] [place] Insurance:CARESOURCEP [facility] Number: [id number] Hospital 35[address]Yed: [id number] Repository [phone] Date:2017-10-05P O -3 (HP) [address]Attn: [place] [address]AM: 10/26/2017 Secondary NOT GIVENUNK [place] Insurance:SELF PAY [facility] Number: Effective Repository Date:2017-10-05 10/19/2017 REGINALDO D Primary REGINALDO D Mary [id number] [place] Insurance:CARESOURCEP [facility] Number: [id number] Hospital [address]Cxj: [id number] Repository [phone] Date:2017-10-19P O -3 (HP) Box [address]Attn: [place] [address]XQ: 10/19/2017 Secondary NOT GIVENUNK Mary Insurance:SELF PAY [facility] Number: Effective Repository Date:2017-10-19 10/18/2017 REGINALDO D Primary REGINALDO D [place] [id number] Insurance:CARESOURCEP WARNERDOB: [facility] Number: [id number] Hospital [address]Irs: [id number] Repository [phone] Date:2016-10-26P O -3 () [address]Attn: [place] [address]EP: 10/18/2017 Secondary NOT GIVENUNK [place] Insurance:SELF PAY [facility] Number: Effective Repository Date:2017-10-18 2017 REGINALDO D Primary REGINALDO D Mary [id number] [address] Insurance:CARESOURCEP WARNERDOB: [facility] Number: [id number] [facility] [address]Chu: [id number] Repository [phone] Date:2017P O -3 () [address]ATTN: [place] [address]CI: 2017 Secondary NOT GIVENUNK Mary Insurance:SELF PAY [facility] Number: Effective Repository Date:2017 10/12/2017 REGINALDO D Primary REGINALDO D Mary [id number] Insurance:CARESOURCEP WARNERDOB: [facility] Number: [id number] Hospital [address]Gip: [id number] Repository [phone] Date:2017-08-17P O -3 () [address]ATTN: [place] [address]RM: 10/12/2017 Secondary NOT GIVENUNK [place] Insurance:SELF PAY [facility] Number: Effective Repository Date:2017-08-17 10/05/2017 REGINALDO D Primary REGINALDO D Mary [id number] [address] Insurance:CARESOURCEP WARNERDOB: [facility] Number: [id number] Hospital [address]Fje: [id number] Repository [phone] Date:2017-09-14P O -3 () [address]ATTN: [place] [address]VW: 10/05/2017 Secondary NOT GIVENUNK Mary Insurance:SELF PAY [facility] Number: Effective Repository Date:2017-09-14 09/27/2017 REGINALDO D Primary REGINALDO D [place] [id number] Insurance:CARESOURCEP WARNERDOB: [facility] Number: [id number] Hospital [address]Tpf: [id number] Repository [phone] Date:2017-09-27 O -3 () [address]ATTN: [place] [address]XN: 09/27/2017 Secondary NOT GIVENUNK [place] Insurance:SELF PAY [facility] Number: Effective Repository Date:2017-09-27 09/14/2017 REGINALDO D Primary REGINALDO D Mary [id number] [address] Insurance:CARESOURCEP WARNERDOB: [facility] Number: [id number] Hospital [address]Fwk: [id number] Repository [phone] Date:2017-08-24P O -3 () [address]ATTN: [place] [address]SQ: 09/14/2017 Secondary NOT GIVENUNK Mary Insurance:SELF PAY [facility] Number: Effective Repository Date:2017-08-24 08/03/2017 REGINALDO D Primary REGINALDO D Mary [id number] [address] Insurance:CARESOURCEP WARNERDOB: [facility] Number: [id number] Hospital [address]Gap: [id number] Repository [phone] Date:2017-07-29P O -3 () [address]ATTN: [place] [address]DG: 08/03/2017 Secondary NOT GIVENUNK [place] Insurance[facility]LF [facility]Y [facility] Number: Effective Repository Date:2017-07-29
== END ==
PROVIDERS: Family Provider Family Medicine; PCP Family Medicine; Referring Provider Nurse Practitioner; Visit Provider Nurse Practitioner
DX: R79.89 Other specified abnormal findings of blood chemistry (principal); E11.65 Type 2 diabetes mellitus with hyperglycemia; E66.9 Obesity, unspecified; Z68.31 Body mass index [BMI] 31.0-31.9, adult; Z71.3 Dietary counseling and surveillance
CPT/HCPCS: 36415; 80053; 80061; 82043; 83036; 84402; 84403; 97803

== ENCOUNTER 2018-08-10 10:12 | Outpatient (RCR) | payer MEDICAID, SELFPAY ==
[2018-08-09 11:15] VITALS: BMI 33.3
== END 2018-08-27 23:59 ==
LOC: NS 10:12
PROVIDERS: Family Provider Family Medicine; PCP Family Medicine; Visit Provider Nurse Practitioner
DX: E66.9 Obesity, unspecified (principal); E11.65 Type 2 diabetes mellitus with hyperglycemia; Z68.31 Body mass index [BMI] 31.0-31.9, adult; Z71.3 Dietary counseling and surveillance
CPT/HCPCS: 97803

== ENCOUNTER → 2018-08-22 08:33 | Outpatient (CLI) | payer MEDICAID, SELFPAY ==
[2018-08-14 11:02] VITALS: BMI 31.6
[2018-08-22 09:42] LABS: Vitamin D,25 Hydroxy 16.8 ng/mL (29.95-100.01)
[2018-08-25 12:05] LABS: Testosterone, Free 10.95 ng/dL (5.00-21.00)
[2018-08-26 11:14] LABS: Testosterone, % Free 3.05 % (1.50-4.20); Testosterone, Total 359 ng/dL (264-916)
== END ==
PROVIDERS: Family Provider Family Medicine; PCP Family Medicine; Referring Provider Nurse Practitioner; Visit Provider Nurse Practitioner
DX: E11.65 Type 2 diabetes mellitus with hyperglycemia (principal); R79.89 Other specified abnormal findings of blood chemistry
CPT/HCPCS: 36415; 82306; 84402; 84403

== ENCOUNTER 2018-09-14 09:00 | Outpatient (RCR) | payer MEDICAID, SELFPAY ==
[2018-08-28 01:17] VITALS: BMI 33.3
== END 2018-09-27 23:59 ==
LOC: NS 09:00
PROVIDERS: Family Provider Family Medicine; PCP Family Medicine; Visit Provider Nurse Practitioner
DX: E66.9 Obesity, unspecified (principal); E11.65 Type 2 diabetes mellitus with hyperglycemia; Z68.31 Body mass index [BMI] 31.0-31.9, adult; Z71.3 Dietary counseling and surveillance
CPT/HCPCS: 97803

== ENCOUNTER → 2018-09-28 08:55 | Outpatient (CLI) | payer MEDICAID, SELFPAY ==
[2018-09-28 08:55] VITALS: BMI 33.3
[2018-09-28 11:07] LABS: Absolute Lymphocyte Count 1.87 X10^3/ul (0.83-4.51); Absolute Neutrophil Count 3.5 X10^3/uL (2.0-7.7); Basophil# 0.02 X10^3/uL; Basophil% 0.3 % (0-1); Eosinophil# 0.07 X10^3/uL; Eosinophils% 1.2 % (0-5); Hematocrit 38.4 % (40-54); Hemoglobin 12.6 g/dl (13.0-16.5); Lymphocyte # 1.87 X10^3/ul (4.0); Mean Corp Hgb Conc 32.8 g/gl (32-36); Mean Corpuscular Hgb 30.1 pg (27.0-32.0); Mean Corpuscular Volume 91.9 fL (80-94); Mean Platelet Vol. 10.1 fl (6.2-12.0); Monocyte# 0.41 X10^3/uL; Neutrophil # 3.46 X10^3/uL (2.7-7.7); Neutrophil % 59.3 % (47-70); POSITIVE COUNT NO; POSITIVE DIFFERENTIAL NO; POSITIVE MORPHOLOGY NO; Platelet Count 165 K/mm3 (150-450); RBC Distribution Width CV 13.1 % (11.6-14.6); RBC Distribution Width SD 43.4 fl (35.1-43.9); Red Blood Count 4.18 M/mm3 (4.6-6.2); White Blood Count 5.8 K/mm3 (4.4-11.0)
[2018-09-28 11:20] LABS: AST(SGOT) 20 U/L (15-37); Alanine Aminotransfer ALT/SGPT 38 U/L (16-61); Albumin, Serum 3.6 g/dL (3.2-5.0); Alkaline Phosphatase 37 U/L (45-117); Anion Gap 6 (5-15); BUN 25 mg/dL (7-18); BUN/Creat Ratio 18.2 RATIO (10-20); Calcium,Total 8.8 mg/dL (8.5-10.1); Chloride 105 mmol/L (98-107); Cholesterol 150 mg/dL (200); Creatinine, Serum 1.37 mg/dL (0.70-1.30); EST Glomerular Filtration Rate 59 mL/min (>60); Est Glom Filt Rate - Afr Amer 71 mL/min (>60); Globulin 3.6 g/dL (2.2-4.2); Glucose 166 mg/dL (74-106); High Density Lipoprotein 31 mg/dL; Potassium 4.9 mmol/L (3.5-5.1); Protein, Total 7.2 g/dL (6.4-8.2); Sodium Level 138 mmol/L (136-145); T4 Free Direct 0.74 ng/dL (0.76-1.46); Thyroid Stim Hormone (TSH) 0.55 uIU/mL (0.358-3.74); Triglycerides 299 mg/dL; Very Low Density Lipoprotein 60 mg/dL (5-40)
== END ==
PROVIDERS: Family Provider Family Medicine; PCP Family Medicine; Referring Provider Family Medicine; Visit Provider Family Medicine
DX: R79.89 Other specified abnormal findings of blood chemistry (principal); E78.5 Hyperlipidemia, unspecified; I10 Essential (primary) hypertension; E66.9 Obesity, unspecified; E11.65 Type 2 diabetes mellitus with hyperglycemia; Z68.31 Body mass index [BMI] 31.0-31.9, adult; Z71.3 Dietary counseling and surveillance
CPT/HCPCS: 36415; 80053; 80061; 84439; 84443; 85025; 97803

== ENCOUNTER 2018-10-12 09:30 | Outpatient (RCR) | payer MEDICAID, SELFPAY ==
[2018-09-28 08:55] VITALS: BMI 33.3
[2018-10-04 09:21] VITALS: BMI 33.3
== END 2018-10-25 23:59 ==
LOC: NS 09:30
PROVIDERS: Family Provider Family Medicine; PCP Family Medicine; Visit Provider Nurse Practitioner
DX: E66.9 Obesity, unspecified (principal); E11.65 Type 2 diabetes mellitus with hyperglycemia; Z68.31 Body mass index [BMI] 31.0-31.9, adult; Z71.3 Dietary counseling and surveillance
CPT/HCPCS: 97803

== ENCOUNTER 2018-10-30 06:51 | Emergency (ER) | payer MEDICAID, SELFPAY ==
[2018-10-04 09:21] VITALS: BMI 33.3
[2018-10-30 06:52] VITALS: BP 169/89; PULSE 79; RESP 16; TEMP 36.8; O2SAT 98; BMI 31.1
--- NOTE | 2018-10-30 07:07 | ED.DCSUM_ITS ---
History of Present Illness Chief Complaint: Seizure Detail of Chief Complaint: Awoke with facial seizure Informant: Patient Onset: Today Context: Sudden Onset Timing: Intermittent, - - Duration minutes Quality: Left facial rhythmic movement and numbness left side Location: Left Current Severity: Mild Maximum Severity: Severe Worsened by: Unknown Relieved by: Nothing Associated Symptoms: Diaphoresis, headache, left-sided paresthesia Narrative: Patient is a 48-year-old male with multiple medical problems who presents to the emergency department with focal seizure that awoke him from sleep this morning. He stumbled to his mother's room who called the paramedics. He presently complains of headache, blurred vision, left-sided numbness. He states these are normal symptoms after a seizure. His last seizure was 2 years ago. The etiology of his seizures is unknown. He states 3 weeks ago his Tegretol level was 11. He reports compliance with his medication. He does report elevated blood sugar and complains of blurred vision, polyuria, nocturia the past week or 2. He has no infectious symptoms. Past medical history Prior similar symptoms: Yes Recent Illness/Hospitalization: No Past Medical History - Allergies and Home Meds Allergies/Adverse Reactions: Allergies erythromycin base Adverse Reaction (Severe, Verified 10/30/18 06:52) Hives loratadine [From Claritin] Adverse Reaction (Severe, Verified 10/30/18 06:52) Rash Primary Care Physician: Nicolas Santos MD [Primary Care Provider] - Prior records reviewed: Yes Past Medical History: - - Diabetes type 2, hypertension, seizures, depression and colon cancer Surgical History: noncontributory Lives: With Family Smoking Status: Former smoker Alcohol: None - Patient states he has not had anything to smoke or drink since 2003. Drugs: None Review of Systems General: Denies: Chills, Fever, Malaise, Sweats Eyes: Reports: Blurred Vision - bilaterally. Denies: Visual changes - bilaterally, Diplopia ENT: Denies: Bilateral ear pain, Rhinorrhea, Sore throat Cardiovascular: Denies: Chest pain, Palpitations Respiratory: Denies: Dyspnea, Cough, Dyspnea on exertion, Orthopnea, Paroxysmal nocturnal dyspnea Gastrointestinal: Denies: Abdominal pain, Nausea, Vomiting, Diarrhea, Melena, Hematochezia Genitourinary: Denies: Dysuria, Hematuria, Frequency Musculoskeletal: Denies: Neck pain, Back pain, Extremity Pain Skin: Denies: Rash, Wounds Neurological: Denies: Headache, Weakness, Numbness Psych: Reports: Depression Endocrine: Reports: Polyuria, Polydipsia. Denies: Heat intolerance, Cold intolerance Hematologic: Denies: Easy bruising Allergy: Reports: Uticaria, Swelling of the mouth Physical Exam Vital Signs/Narrative: Vital Signs Temp Pulse Resp BP Pulse Ox 10/30/18 06:52 98.2 F 79 16 169/89 H 98 Diagnostic/Tx/Re-eval Sodium is 129, creatinine 1.54 and blood sugar 427. The sodium value 129 most likely represents pseudohyponatremia. Tegretol was lower end of therapeutic range at 4.1. Will inform patient and have level reassessed in 1 week - Medical Decision Making To evaluate patient's seizure will obtain BGT to rule out hypo-glycemia. Will obtain Tegretol level to confirm compliance. Because patient complains of po lyuria, nocturia and polydipsia will obtain basic metabolic panel to assess glucose as well as CO2 and anion gap. Tegretol is known to cause hyponatremia and an additional reason to obtain basic metabolic panel. A liter of normal saline was ordered since blood sugar is 427 and would explain his visual changes and polyuria, nocturia and polydipsia. Patient was reassessed at 10: 00. He is still complaining of left sided head and facial pain, which is not abnormal. He states the Tylenol that was given did not have any effect. 4 mg of morphine IV push and 4 mg of Zofran were ordered. He does have hyponatremia secondary to elevated blood sugar 427. Based on his sliding scale he was given 10 units of insulin and will be reassessed in 30-60 minutes. Tegretol level is at the lower end of therapeutic range. Patient informed to follow-up with neurologist for blood draw in 1 week to assess level. This may be the reason for seizure ED Disposition - Plan for ED Patient: Diagnosis: Breakthrough seizure, Hyperglycemia due to type 1 diabetes mellitus, Pseudohyponatremia, Renal insufficiency, mild Instructions: ED Seizure Recurrent Referrals: Nicolas Santos MD [Primary Care Provider] - 5-7 Days Additional Instructions: Contact your doctor's office for repeat Tegretol level in 5-7 days. Your level was 4.1 which is the lower end of therapeutic range and may be the reason why you had a seizure for the first time in the past 2 years.
[2018-10-30 07:41] LABS: Bedside Glucose 427 mg/dL (70-110)
[2018-10-30] MEDS: 0.9% Normal Saline 1,000 ML 1000 ML IV (08:09)
[2018-10-30 08:37] LABS: Anion Gap 7 (5-15); BUN 24 mg/dL (7-18); BUN/Creat Ratio 15.6 RATIO (10-20); Calcium,Total 8.7 mg/dL (8.5-10.1); Chloride 96 mmol/L (98-107); Creatinine, Serum 1.54 mg/dL (0.70-1.30); EST Glomerular Filtration Rate 51 mL/min (>60); Est Glom Filt Rate - Afr Amer 62 mL/min (>60); Estimated Creatinine Clearance 55.52 ml/min; Glucose 449 mg/dL (74-106); Sodium Level 129 mmol/L (136-145)
[2018-10-30 08:51] VITALS: PULSE 89; O2SAT 96
[2018-10-30 08:53] LABS: Carbamazepine (Tegretol) 4.1 ug/mL (4.0-12.0)
[2018-10-30] MEDS: Acetaminophen 325 MG Tablet 650 MG PO (09:04)
[2018-10-30] MEDS: Insulin Lispro 100 UNIT/ML INSULN.PEN 10 UNIT SC (10:22)
[2018-10-30] MEDS: Morphine 4 MG/ML Syringe IV (10:22)
[2018-10-30] MEDS: Ondansetron 4 MG/2 ML Vial IV (10:22)
[2018-10-30 10:26] VITALS: BP 143/86; PULSE 90
[2018-10-30 11:10] VITALS: BP 142/86; PULSE 844; RESP 10; O2SAT 95
[2018-10-30 11:11] LABS: Bedside Glucose 372 mg/dL (70-110)
== END 2018-10-30 11:24 | disposition home or self-care (01) ==
PROVIDERS: Emergency Provider Emergency Medicine; Family Provider Family Medicine; PCP Family Medicine
DX: G40.909 Epilepsy, unspecified, not intractable, without status epilepticus (principal); E10.65 Type 1 diabetes mellitus with hyperglycemia; N28.9 Disorder of kidney and ureter, unspecified; I10 Essential (primary) hypertension; F32.9 Major depressive disorder, single episode, unspecified; Z85.038 Personal history of other malignant neoplasm of large intestine; E87.1 Hypo-osmolality and hyponatremia
CPT/HCPCS: 36591; 80048; 80156; 82962; 96361; 96374; 96375; 99283; J7030; A4216; J2405

== ENCOUNTER → 2018-11-07 10:38 | Outpatient (CLI) | payer MEDICAID, SELFPAY ==
[2018-10-30 06:52] VITALS: BMI 31.1
[2018-11-07 11:50] LABS: PSA,Total - Annual Screen 0.74 ng/mL (0.00-4.00)
[2018-11-07 12:13] LABS: Carbamazepine (Tegretol) 13.1 ug/mL (4.0-12.0)
== END ==
PROVIDERS: Family Provider Family Medicine; PCP Family Medicine; Referring Provider Nurse Practitioner; Visit Provider Nurse Practitioner
DX: R79.89 Other specified abnormal findings of blood chemistry (principal); R56.9 Unspecified convulsions; Z85.038 Personal history of other malignant neoplasm of large intestine
CPT/HCPCS: 36415; 80156; 84153; 84402; 84403; G0103

== ENCOUNTER → 2018-11-13 13:07 | Outpatient (CLI) | payer MEDICAID, SELFPAY ==
[2018-10-30 06:52] VITALS: BMI 31.1
--- NOTE | 2018-11-13 13:45 | MRI_ITS ---
HISTORY: seizures, unilateral weakness, pain left side of face TECHNIQUE: Multiplanar and multisequence MR images of the brain were obtained with and without IV gadolinium. IV Contrast dosage and agent: 20 cc DOTAREM COMPARISON: Cranial CT 10/10/2013 FINDINGS: Normal ventricles. No hydrocephalus. Moderate cerebral cortical atrophy and mild cerebellar atrophy, abnormal for age. No white matter disease. Rust-white matter differentiation appears normal. Diffusion-weighted images are normal. No intracranial mass, hemorrhage, or acute parenchymal abnormality. No pathologic enhancement or suspicious extra-axial fluid collection. Normal cerebello-pontine angle regions. Normal flow voids within the major vessels. As visualized, the mastoids and paranasal sinuses are clear. MRI/Brain W/WO Contrast IMPRESSION: 1. Moderate cerebral cortical atrophy and mild cerebellar atrophy, abnormal for age. 2. Otherwise negative exam. No hemorrhage or acute disease. No focal lesion. at 0748 Reported and signed by: Roberto Osullivan MD Electronically Signed: Roberto Osullivan, at 7:47 EDT Tel , Service support ,
== END ==
PROVIDERS: Family Provider Family Medicine; PCP Family Medicine; Referring Provider Family Medicine; Visit Provider Family Medicine
DX: R53.1 Weakness (principal); R56.9 Unspecified convulsions
CPT/HCPCS: 70553; A9575

== ENCOUNTER 2018-11-23 10:00 | Outpatient (RCR) | payer MEDICAID, SELFPAY ==
[2018-10-04 09:21] VITALS: BMI 33.3
== END 2018-11-25 23:59 ==
LOC: NS 10:00
PROVIDERS: Family Provider Family Medicine; PCP Family Medicine; Visit Provider Nurse Practitioner
DX: E66.9 Obesity, unspecified (principal); E11.65 Type 2 diabetes mellitus with hyperglycemia; Z68.31 Body mass index [BMI] 31.0-31.9, adult; Z71.3 Dietary counseling and surveillance
CPT/HCPCS: 97803

== ENCOUNTER 2019-01-18 10:30 | Outpatient (RCR) | payer MEDICAID, SELFPAY ==
[2018-11-26 00:55] VITALS: BMI 33.3
== END 2019-01-18 23:59 | disposition home or self-care (01) ==
LOC: NS 10:30
PROVIDERS: Family Provider Family Medicine; PCP Family Medicine; Visit Provider Nurse Practitioner
DX: E66.9 Obesity, unspecified (principal); E11.65 Type 2 diabetes mellitus with hyperglycemia; Z68.31 Body mass index [BMI] 31.0-31.9, adult; Z71.3 Dietary counseling and surveillance
CPT/HCPCS: 97803

== ENCOUNTER → 2019-05-01 | Outpatient (CLI) | payer MEDICAID, SELFPAY ==
[2018-11-26 00:55] VITALS: BMI 33.3
--- NOTE | 2019-05-01 13:35 | CT_ITS ---
STUDY: CT ABDOMEN AND PELVIS WITH CONTRAST REASON FOR EXAM: Male, 48 years old. Colon cancer. Surveillance. RADIATION DOSAGE (If Supplied By Facility): CTDIvol = ( 18.17 ) mGy, DLP = ( 1070.12 ) mGycm TECHNIQUE: Transaxial images were obtained from the dome of the diaphragm to the symphysis pubis without oral contrast. 100 ml of Isovue 300 contrast was administered. Sagittal and coronal images were reconstructed. Individualized dose optimization techniques were used for this CT. COMPARISON: 04/24/2018 FINDINGS: The visualized lung bases are clear. The visualized portions of the heart and pericardium are within normal limits. There are no calcified gallstones present. There is stable hepatosplenomegaly. There are no focal hepatic lesions. Again noted are varices in the left upper quadrant. The pancreas is within normal limits. The adrenal glands are within normal limits. There are no renal or ureteral stones. There is no hydronephrosis. There are stable cysts in the left kidney. There are no right renal lesions. Normal visualized stomach. There are stable postsurgical changes from a right hemicolectomy. There is no bowel obstruction or inflammation. The appendix is not visualized, but there are no findings to suggest acute appendicitis. The aorta is normal in caliber. There is no abdominal or pelvic free air, free fluid, fluid collection or lymphadenopathy. There are no destructive osseous lesions. CT/Abdomen/Pelvis WITH Contrast IMPRESSION: Stable postsurgical changes from a right hemicolectomy. No evidence of recurrent or metastatic disease in the abdomen or pelvis. Stable hepatosplenomegaly. Stable left upper quadrant varices. Electronically Signed: Benton James, at 18:15 EDT Tel , Service support ,
[2019-05-01 13:51] LABS: EGFR FINGERSTICK > 60.0000 mL/min (>60)
[2019-05-01] MEDS: 0.9% Saline Lock 10 ML Syringe IV (14:04)
== END | disposition home or self-care (01) ==
LOC: CT 13:35
PROVIDERS: Family Provider Family Medicine; PCP Family Medicine; Referring Provider Internal Medicine Medical Oncology; Visit Provider Internal Medicine Medical Oncology
DX: Z85.038 Personal history of other malignant neoplasm of large intestine (principal)
CPT/HCPCS: 74177; Q9967; A4216

== ENCOUNTER → 2019-05-07 09:49 | Outpatient (CLI) | payer MEDICAID, SELFPAY ==
[2019-05-07 09:49] VITALS: BMI 31.1
[2019-05-07 10:39] LABS: Absolute Neutrophil Count 3.2 X10^3/uL (2.0-7.7); Basophil# 0.03 X10^3/uL; Basophil% 0.5 % (0-1); Eosinophil# 0.14 X10^3/uL; Eosinophils% 2.4 % (0-5); Hematocrit 40.2 % (40-54); Hemoglobin 13.7 g/dL (13.0-16.5); Lymphocyte % 35.9 % (19-41); Mean Corp Hgb Conc 34.1 g/dL (32-36); Mean Corpuscular Hgb 30.9 pg (27.0-32.0); Mean Corpuscular Volume 90.7 fL (80-94); Mean Platelet Vol. 9.7 fl (6.2-12.0); Monocyte# 0.34 X10^3/uL; Monocyte% 5.8 % (0-10); NRBC Flagged by Analyzer 0 % (0-5); Neutrophil # 3.19 X10^3/uL (2.7-7.7); Neutrophil % 54.5 % (47-70); Platelet Count 192 K/mm3 (150-450); RBC Distribution Width CV 11.9 % (11.6-14.6); RBC Distribution Width SD 39.8 fl (35.1-43.9); Red Blood Count 4.43 M/mm3 (4.6-6.2); White Blood Count 5.9 K/mm3 (4.4-11.0)
[2019-05-07 11:06] LABS: ALB/GLOB Ratio 0.8 RATIO (0.9-2.4); AST(SGOT) 21 U/L (15-37); Alanine Aminotransfer ALT/SGPT 28 U/L (16-61); Albumin, Serum 3.4 g/dL (3.2-5.0); Alkaline Phosphatase 41 U/L (45-117); Anion Gap 5 (5-15); BUN 16 mg/dL (7-18); BUN/Creat Ratio 13.1 RATIO (10-20); Calcium,Total 8.8 mg/dL (8.5-10.1); Chloride 107 mmol/L (98-107); Creatinine, Serum 1.22 mg/dL (0.70-1.30); EST Glomerular Filtration Rate 67 mL/min (>60); Est Glom Filt Rate - Afr Amer 81 mL/min (>60); Glucose 152 mg/dL (74-106); Potassium 3.8 mmol/L (3.5-5.1); Protein, Total 7.4 g/dL (6.4-8.2); Sodium Level 141 mmol/L (136-145)
[2019-05-08 12:18] LABS: Carcinoembryonic Antigen 1.6 ng/mL (0.0-4.7)
== END ==
PROVIDERS: Family Provider Family Medicine; PCP Family Medicine; Referring Provider Internal Medicine Medical Oncology; Visit Provider Internal Medicine Medical Oncology
DX: Z85.038 Personal history of other malignant neoplasm of large intestine (principal)
CPT/HCPCS: 36415; 80053; 82378; 85025

== ENCOUNTER 2020-01-13 20:51 | Emergency (ER) | payer MEDICAID, SELFPAY ==
[2019-05-07 09:49] VITALS: BMI 31.1
[2020-01-13 20:52] VITALS: BP 170/98; PULSE 105; RESP 17; TEMP 37.6; O2SAT 99; BMI 32.4
--- NOTE | 2020-01-13 21:01 | ED.RN ---
DR. CORMIER NOTIFIED OF PT SX ON ARRIVAL TO ED CONSISTING OF LEFT FACIAL PAIN, N/T THROUGHOUT FACE. HX OF TRIGEMNIAL NEURALGIA. PT NOT A STROKE TEAM AT THIS TIME PER DR. CORMIER.
--- NOTE | 2020-01-13 21:22 | ED.DCSUM_ITS ---
History of Present Illness Chief Complaint: Numb/Ting Detail of Chief Complaint: painful tingling left face Informant: Patient Onset: Hours - 1 Context: Sudden Onset - at rest Timing: Continuous, Waxes and wanes Quality: lancing pain Location: left side of entire face, including forehead Current Severity: Severe Maximum Severity: Severe Worsened by: nothing in particular Relieved by: nothing Associated Symptoms: sweating. trouble walking. Narrative: Patient states he has had trigeminal neuralgia since age 16, and every now and then he gets these symptoms of an exacerbation. He is on the maximum dose of Tegretol, 600 mg twice daily, he took his second daily dose of that tonight. He states triggers are unknown. He has had no recent illness or injury. When he gets the Unruly pain into the left face, he also has some tremors of his left arm although no weakness or numbness, and similar issue with his left leg that results in him walking like he is drunk according to him. He states all of this has occurred together before, and typically does occur together when he has a trigeminal neuralgia flareup, since he was age 16. He has seen a neurologist, who was aware of all of these symptoms in conjunction with this, he has had an MRI several times in the past, that were negative. He states oftentimes, analgesics do help with this. He denies any other symptoms right now. - Past Medical History (1) Trigeminal neuralgia Status: Chronic (2) Depression Status: Chronic (3) Diabetes type 2, uncontrolled Status: Chronic (4) History of colon cancer Status: Chronic (5) Hypertension Status: Chronic Comment: BP 131/84 today. Enc to exercise, monitor salt. Reviewed labs with patient Has not taken medication today (6) Low testosterone in male Status: Chronic Comment: On replacement (7) Sezary disease Status: Chronic Past Medical History - Allergies and Home Meds Allergies/Adverse Reactions: Allergies erythromycin base Adverse Reaction (Severe, Verified 01/13/20 20:51) Hives loratadine [From Claritin] Adverse Reaction (Severe, Verified 01/13/20 20:51) Rash Primary Care Physician: Dutch Zhong MD [Primary Care Provider] - 1-2 Days if not improving (For reevaluation and possible referral to neurology or neurosurgery or pain management) Surgical History: noncontributory Smoking Status: Former smoker Review of Systems General: Reports: Sweats. Denies: Chills, Fever Eyes: Denies: Visual changes - bilaterally, Diplopia ENT: Reports: - - Left hemifacial pain. Denies: Bilateral ear pain, Rhinorrhea, Sore throat Cardiovascular: Denies: Chest pain, Palpitations Respiratory: Denies: Dyspnea, Cough, Dyspnea on exertion Gastrointestinal: Denies: Abdominal pain, Nausea, Vomiting, Diarrhea, Melena, Hematochezia Genitourinary: Denies: Dysuria, Hematuria, Frequency Musculoskeletal: Denies: Neck pain, Back pain, Swelling, Extremity Pain Skin: Denies: Rash, Wounds Neurological: Reports: Parasthesia - Left face, - - See HPI for further neurologic details. Denies: Headache, Weakness Endocrine: Reports: Polyuria, Polydipsia Physical Exam Vital Signs/Narrative: Vital Signs Temp Pulse Resp BP Pulse Ox 01/13/20 20:52 99.6 F H 105 H 17 170/98 H 99 NIH Stroke Scale/Score (NIHSS) from [employer] on 01/13/2020 All calculations should be rechecked by clinician prior to use RESULT SUMMARY: 1 points NIH Stroke Scale INPUTS: 1A: Level of consciousness ?> 0 = Alert; keenly responsive 1B: Ask month and age ?> 0 = Both questions right 1C: 'Blink eyes' & 'squeeze hands' ?> 0 = Performs both tasks 2: Horizontal extraocular movements ?> 0 = Normal 3: Visual wall ?> 0 = No visual loss 4: Facial palsy ?> 0 = Normal symmetry 5A: Left arm motor drift ?> 0 = No drift for 10 seconds 5B: Right arm motor drift ?> 0 = No drift for 10 seconds 6A: Left leg motor drift ?> 0 = No drift for 5 seconds 6B: Right leg motor drift ?> 0 = No drift for 5 seconds 7: Limb Ataxia ?> 0 = No ataxia 8: Sensation ?> 1 = Mild-moderate loss: less sharp/more dull 9: Language/aphasia ?> 0 = Normal; no aphasia 10: Dysarthria ?> 0 = Normal 11: Extinction/inattention ?> 0 = No abnormality Inital Vital Signs reviewed: Yes General: Well nourished, Well developed, Acute Distress - Intermittent painful distress due to pain in his face. Head: Normocephalic, Atraumatic Eyes: Perrl, EOMI ENT: Moist mucous membranes, No rhinorrhea Neck: Supple, Nontender, No lymphadenopathy Cardiovascular: Regular rate, Regular rhythm, No murmurs Respiratory: No distress, CTA bilaterally, Chest nontender Abdomen: Soft, Nontender, Nondistended, Normal bowel sounds Back: Nontender, Normal Inspection Extremities: Nontender, No edema Skin: Normal color, No rash, Diaphoresis, No Trauma Neurological: Alert, Oriented x3, Cranial nerves II-XII grossly intact, Normal Strength, Normal DTR, Parasthesia - Left face only, including forehead., - - Forehead raises symmetrically.. Negative for: Left side facial droop Psychological: Normal affect, Normal Mood Diagnostic/Tx/Re-eval Laboratory Tests 01/13/20 01/13/20 Range/Units 22:35 22:35 WBC 6.6 (4.4-11.0) K/mm3 RBC 4.15 L (4.6-6.2) M/mm3 Hgb 13.0 (13.0-16.5) g/dL Hct 36.1 L (40-54) % MCV 87.0 (80-94) fL MCH 31.3 (27.0-32.0) pg MCHC 36.0 (32-36) g/dL RDW Std Deviation 38.7 (35.1-43.9) fl RDW Coeff of Ever 12.2 (11.6-14.6) % Plt Count 172 (150-450) K/mm3 MPV 10.5 (6.2-12.0) fl Immature Gran % (Auto) 1.200 H (0.0-0.9) % Neut % (Auto) 70.6 H (47-70) % Lymph % (Auto) 21.1 (19-41) % [place] % (Auto) 6.0 (0-10) % Eos % (Auto) 0.5 (0-5) % Baso % (Auto) 0.6 (0-1) % Absolute Neuts (auto) 4.6 (2.0-7.7) X10^3/uL Absolute Lymphs (auto) 1.38 (0.83-4.51) X10^3/uL Nucleated RBC % 0 (0-5) % Sodium 132 L (136-145) mmol/L Potassium 4.4 (3.5-5.1) mmol/L Chloride 99 (98-107) mmol/L Carbon Dioxide 26.0 (21.0-32.0) mmol/L Anion Gap 7 (5-15) BUN 18 (7-18) mg/dL Creatinine 1.52 H (0.70-1.30) mg/dL Estim Creat Clear Calc 55.63 ml/min Est GFR (MDRD) Af Amer 62 (>60) mL/min Est GFR (MDRD) Non-Af 52 L (>60) mL/min BUN/Creatinine Ratio 11.8 (10-20) RATIO Glucose 408 H (74-106) mg/dL Calcium 9.2 (8.5-10.1) mg/dL - Medical Decision Making Labs are unremarkable except for hyperglycemia. Patient did have symptoms of that. He was given some insulin to bring his sugar down, unknown if that is the trigger for this. Patient is feeling improved after Dilaudid, he does not have any symptoms in his arm or leg anymore, just the lancing pain in his face. He does look better than before. He will be given another dose of analgesic, in addition to Toradol, advised to continue taking his Tegretol, and to follow-up with his doctor for possible referral if this does not resolve, to either pain management or neurosurgery for further evaluation. ED Disposition - Plan for ED Patient: Disposition: Home or Assisted Living Diagnosis: Trigeminal neuralgia of left side of face, Hyperglycemia due to type 2 diabetes mellitus Instructions: ED Neuralgia Trigeminal Referrals: Dutch Zhong MD [Primary Care Provider] - 1-2 Days if not improving (For reevaluation and possible referral to neurology or neurosurgery or pain management)
[2020-01-13] MEDS: HYDROmorphone 1 MG/ML Syringe IV (22:16)
[2020-01-13 22:55] LABS: Absolute Lymphocyte Count 1.38 X10^3/uL (0.83-4.51); Absolute Neutrophil Count 4.6 X10^3/uL (2.0-7.7); Basophil# 0.04 X10^3/uL; Basophil% 0.6 % (0-1); Eosinophil# 0.03 X10^3/uL; Eosinophils% 0.5 % (0-5); Hematocrit 36.1 % (40-54); Lymphocyte # 1.38 X10^3/ul (4.0); Lymphocyte % 21.1 % (19-41); Mean Corpuscular Hgb 31.3 pg (27.0-32.0); Mean Platelet Vol. 10.5 fl (6.2-12.0); Monocyte# 0.39 X10^3/uL; NRBC Flagged by Analyzer 0 % (0-5); Neutrophil # 4.63 X10^3/uL (2.7-7.7); Neutrophil % 70.6 % (47-70); Platelet Count 172 K/mm3 (150-450); RBC Distribution Width CV 12.2 % (11.6-14.6); RBC Distribution Width SD 38.7 fl (35.1-43.9); Red Blood Count 4.15 M/mm3 (4.6-6.2); White Blood Count 6.6 K/mm3 (4.4-11.0)
[2020-01-13 23:08] LABS: Anion Gap 7 (5-15); BUN 18 mg/dL (7-18); BUN/Creat Ratio 11.8 RATIO (10-20); Calcium,Total 9.2 mg/dL (8.5-10.1); Chloride 99 mmol/L (98-107); Creatinine, Serum 1.52 mg/dL (0.70-1.30); EST Glomerular Filtration Rate 52 mL/min (>60); Est Glom Filt Rate - Afr Amer 62 mL/min (>60); Estimated Creatinine Clearance 55.63 ml/min; Glucose 408 mg/dL (74-106); Potassium 4.4 mmol/L (3.5-5.1); Sodium Level 132 mmol/L (136-145)
[2020-01-13] MEDS: HYDROmorphone 0.5 MG/0.5 ML SYRINGE IV (23:59)
[2020-01-13] MEDS: Ketorolac 30 MG/ML Syringe IV (23:59)
[2020-01-14] MEDS: Insulin Lispro 100 UNIT/ML INSULN.PEN 8 UNIT SC (00:01)
[2020-01-14 00:16] VITALS: PULSE 86; RESP 15
[2020-01-14 01:01] LABS: Bedside Glucose 444 mg/dL (70-110)
[2020-01-14] MEDS: 0.9% Saline Lock 10 ML Syringe IV (01:13)
[2020-01-14 01:22] VITALS: BP 144/86; PULSE 90; RESP 16; O2SAT 98
--- NOTE | 2020-01-14 01:23 | ED.RN ---
pt blood glucose elevated at 444. per dr. tuttle, pt is cleared for discharge, and is to take his nightime insulin upon arriving home. pt verbalizes understanding and reports he needs to take his nighttime medications. port deaccessed.
== END 2020-01-14 01:23 | disposition home or self-care (01) ==
PROVIDERS: Emergency Provider Emergency Medicine; PCP Family Medicine
DX: G50.0 Trigeminal neuralgia (principal); E11.65 Type 2 diabetes mellitus with hyperglycemia; I10 Essential (primary) hypertension; F32.9 Major depressive disorder, single episode, unspecified; G40.909 Epilepsy, unspecified, not intractable, without status epilepticus; Z85.038 Personal history of other malignant neoplasm of large intestine; Z79.4 Long term (current) use of insulin; Z79.899 Other long term (current) drug therapy; Z87.891 Personal history of nicotine dependence
CPT/HCPCS: 80048; 82962; 85025; 96361; 96372; 96374; 96375; 96376; 99285; J7040; A4216

== ENCOUNTER 2020-02-04 19:14 | Emergency (ER) | payer MEDICAID, SELFPAY ==
[2020-02-04 19:15] VITALS: BP 174/96; PULSE 94; RESP 16; TEMP 36.9; O2SAT 100; BMI 30.9
--- NOTE | 2020-02-04 19:21 | ED.VIS.GEN ---
History of Present Illness Chief Complaint: Other, Pain/Inj Informant: Patient Onset: Today Context: Sudden Onset Timing: Continuous Current Severity: Moderate Maximum Severity: Severe Narrative: The patient is a 49-year-old male with medical history significant for trigeminal neuralgia that presents to the emergency department exacerbation of his pain. He states that normally, he does well with his maintenance Tegretol. He states today, he is on multiple episodes of intense burning pain across his left face which is consistent with his bouts of trigeminal neuralgia. He said sometimes, just gets very painful and he needs to seek care. He denies fevers or chills. He denies chest pain or difficulty breathing. He states he is otherwise been in his normal state of health. Prior similar symptoms: Yes Recent Illness/Hospitalization: No Past Medical History - Allergies and Home Meds Allergies/Adverse Reactions: Allergies erythromycin base Adverse Reaction (Severe, Verified 02/04/20 19:18) Hives loratadine [From Claritin] Adverse Reaction (Severe, Verified 02/04/20 19:18) Rash Primary Care Physician: Dutch Zhong MD [Primary Care Provider] - Prior records reviewed: Yes Past Medical History: - - Trigeminal neuralgia, prior colon cancer Surgical History: noncontributory Smoking Status: Former smoker Review of Systems General: Denies: Chills, Fever, Sweats Eyes: Denies: Visual changes - bilaterally, Diplopia ENT: Denies: Rhinorrhea, Sore throat Cardiovascular: Denies: Chest pain, Palpitations Respiratory: Denies: Dyspnea, Cough, Dyspnea on exertion Gastrointestinal: Denies: Abdominal pain, Nausea, Vomiting, Diarrhea, Melena, Hematochezia Genitourinary: Denies: Dysuria, Hematuria, Frequency Musculoskeletal: Denies: Back pain, Extremity Pain Skin: Denies: Rash, Wounds Neurological: Denies: Headache, Weakness, Numbness Physical Exam Vital Signs/Narrative: Vital Signs Temp Pulse Resp BP Pulse Ox 02/04/20 19:15 98.4 F 94 16 174/96 H 100 Inital Vital Signs reviewed: Yes General: Well nourished, Well developed, No Acute Distress Head: Normocephalic, Atraumatic Eyes: Perrl, EOMI ENT: Moist mucous membranes, No rhinorrhea Neck: Supple, Nontender Cardiovascular: Regular rate, Regular rhythm, No murmurs Respiratory: No distress, CTA bilaterally, Chest nontender Abdomen: Soft, Nontender, Nondistended, Normal bowel sounds Back: Nontender, Normal Inspection Extremities: Nontender, No edema Skin: Normal color, No rash Neurological: Alert, Oriented x3, Cranial nerves II-XII grossly intact, Normal Strength, Normal Sensation Psychological: Normal affect, Normal Mood Diagnostic/Tx/Re-eval Abnormal Lab Results 02/04/20 02/04/20 02/04/20 19:50 19:50 19:50 WBC 6.6 RBC 3.76 L Hgb 11.8 L Hct 33.9 L MCV 90.2 MCH 31.4 MCHC 34.8 RDW Std Deviation 40.6 RDW Coeff of Ever 12.5 Plt Count 207 MPV 10.1 Immature Gran % (Auto) 0.300 Neut % (Auto) 60.9 Lymph % (Auto) 31.1 [place] % (Auto) 6.1 Eos % (Auto) 1.1 Baso % (Auto) 0.5 Absolute Neuts (auto) 4.0 Absolute Lymphs (auto) 2.05 Nucleated RBC % 0 Sodium 134 L Potassium 4.2 Chloride 102 Carbon Dioxide 26.0 Anion Gap 6 BUN 25 H Creatinine 1.68 H Estim Creat Clear Calc 53.71 Est GFR (MDRD) Af Amer 56 L Est GFR (MDRD) Non-Af 46 L BUN/Creatinine Ratio 14.9 Glucose 349 H Calcium 8.4 L Carbamazepine 6.0 - Medical Decision Making The patient presents with an exacerbation of his trigeminal neuralgia. His neurologic exam is reassuring. IV was established. The patient was treated with analgesics with some improvement of his pain. He did request measuring of his Tegretol level which is currently pending. Screening labs do show hyperglycemia, as the patient states he did not take his insulin tonight. He was given fluids and insulin. He was observed. I do feel that once the patient is feeling proved, he will be safe for discharge. Will be signed out to the night physician for reevaluation. He is comfortable with this plan of care. Impression 1. Trigeminal neuralgia ED Disposition - Plan for ED Patient: Instructions: ED Neuralgia Trigeminal Referrals: Dutch Zhong MD [Primary Care Provider] -
[2020-02-04] MEDS: HYDROmorphone 1 MG/ML Syringe IV ×2 (19:52→20:17)
[2020-02-04] MEDS: Ketorolac 15 MG/ML Vial IV (19:53)
[2020-02-04] MEDS: 0.9% Normal Saline 1,000 ML 1000 ML IV (20:01)
[2020-02-04 20:02] LABS: Absolute Lymphocyte Count 2.05 X10^3/uL (0.83-4.51); Basophil# 0.03 X10^3/uL; Basophil% 0.5 % (0-1); Eosinophil# 0.07 X10^3/uL; Eosinophils% 1.1 % (0-5); Hematocrit 33.9 % (40-54); Hemoglobin 11.8 g/dL (13.0-16.5); Lymphocyte # 2.05 X10^3/ul (4.0); Lymphocyte % 31.1 % (19-41); Mean Corp Hgb Conc 34.8 g/dL (32-36); Mean Corpuscular Hgb 31.4 pg (27.0-32.0); Mean Corpuscular Volume 90.2 fL (80-94); Mean Platelet Vol. 10.1 fl (6.2-12.0); Monocyte% 6.1 % (0-10); NRBC Flagged by Analyzer 0 % (0-5); Neutrophil # 4.02 X10^3/uL (2.7-7.7); Neutrophil % 60.9 % (47-70); Platelet Count 207 K/mm3 (150-450); RBC Distribution Width CV 12.5 % (11.6-14.6); RBC Distribution Width SD 40.6 fl (35.1-43.9); Red Blood Count 3.76 M/mm3 (4.6-6.2); White Blood Count 6.6 K/mm3 (4.4-11.0)
[2020-02-04 20:19] LABS: Anion Gap 6 (5-15); BUN 25 mg/dL (7-18); BUN/Creat Ratio 14.9 RATIO (10-20); Calcium,Total 8.4 mg/dL (8.5-10.1); Chloride 102 mmol/L (98-107); Creatinine, Serum 1.68 mg/dL (0.70-1.30); EST Glomerular Filtration Rate 46 mL/min (>60); Est Glom Filt Rate - Afr Amer 56 mL/min (>60); Estimated Creatinine Clearance 53.71 ml/min; Glucose 349 mg/dL (74-106); Potassium 4.2 mmol/L (3.5-5.1); Sodium Level 134 mmol/L (136-145)
[2020-02-04] MEDS: Insulin Lispro 100 UNIT/ML INSULN.PEN 10 UNIT SC (20:51)
[2020-02-04] MEDS: Morphine 4 MG/ML Syringe IV (20:56)
[2020-02-04] MEDS: Ondansetron 4 MG/2 ML Vial IV (20:56)
[2020-02-04 20:59] VITALS: BP 180/97; PULSE 78; RESP 18; O2SAT 99
[2020-02-04 22:04] VITALS: BP 167/74; PULSE 78; RESP 16; O2SAT 99
== END 2020-02-04 21:49 | disposition home or self-care (01) ==
LOC: ED 19:24
PROVIDERS: Emergency Provider Emergency Medicine; PCP Family Medicine
DX: G50.0 Trigeminal neuralgia (principal); Z85.038 Personal history of other malignant neoplasm of large intestine; Z87.891 Personal history of nicotine dependence
CPT/HCPCS: 36591; 80048; 80156; 85025; 96361; 96372; 96374; 96375; 99285; J7030; A4216; J2405

== ENCOUNTER → 2020-06-16 09:20 | Outpatient (CLI) | payer MEDICAID, SELFPAY | PROVIDERS: PCP Family Medicine; Referring Provider Registered Nurse; Visit Provider Registered Nurse | DX: Z20.828 Contact with and (suspected) exposure to other viral communicable diseases (principal) | CPT/HCPCS: 87635; C9803; U0003 ==

== ENCOUNTER 2020-06-19 10:55 | Emergency (ER) | payer MEDICAID, SELFPAY ==
[2020-06-19 10:56] VITALS: BP 180/109; PULSE 80; RESP 16; TEMP 36.8; O2SAT 98; BMI 32.0
--- NOTE | 2020-06-19 11:16 | EKG12_ITS ---
Test Reason : Blood Pressure : / mmHG Vent. Rate : 081 BPM Atrial Rate : 081 BPM P-R Int : 152 ms QRS Dur : 096 ms QT Int : 348 ms P-R-T Axes : 059 008 049 degrees QTc Int : 404 ms Normal sinus rhythm Nonspecific T wave abnormality Abnormal ECG Confirmed by SHARLENE GARCIA, BRANDY ([id number]), video tape editor JAYCOB PENDLETON ([id number]) on 06/22/2020 11:32:30 AM Referred By: CRYSTAL Confirmed By:BRANDY SU MD
--- NOTE | 2020-06-19 11:18 | ED.DCSUM_ITS ---
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 About 15 minutes before arrival he was in his bed he has laying comfortably started to have severe pain on the left side of his face the left arm and leg. It has essentially resolved on arrival. He states he has been noncompliant with his Tegretol and has missed his last couple of doses. He has not had any difficulties with speech no weakness no numbness no loss of vision or trauma injuries or falls. No fevers no chest pain cough shortness of breath vomiting or diarrhea. Prior similar symptoms: Yes Recent Illness/Hospitalization: No <Joseph Mace - Last Filed: 06/19/20 13:02> <Bean Rene - Last Filed: 06/19/20 16:00> Chief Complaint: Seizure Past Medical History Prior records reviewed: Yes Past Medical History: - - Insulin-dependent diabetes trigeminal neuralgia pseudoseizures Surgical History: noncontributory Lives: With Family Smoking Status: Former smoker Alcohol: Occasional Drugs: None <Joseph Mace - Last Filed: 06/19/20 13:02> <Bean Rene - Last Filed: 06/19/20 16:00> - Allergies and Home Meds Allergies/Adverse Reactions: Allergies erythromycin base Adverse Reaction (Severe, Verified 06/19/20 10:59) Hives loratadine [From Claritin] Adverse Reaction (Severe, Verified 06/19/20 10:59) Rash Primary Care Physician: Dtuch Zhong MD [Primary Care Provider] - Review of Systems All systems negative except as indicated General: Denies: Chills, Fever, Sweats Eyes: Denies: Visual changes - bilaterally, Diplopia ENT: Denies: Rhinorrhea, Sore throat Cardiovascular: Denies: Chest pain, Palpitations Respiratory: Denies: Dyspnea, Cough, Dyspnea on exertion Gastrointestinal: Denies: Abdominal pain, Nausea, Vomiting, Diarrhea, Melena, Hematochezia Genitourinary: Denies: Dysuria, Hematuria, Frequency Musculoskeletal: Reports: Extremity Pain. Denies: Back pain, Swelling Skin: Denies: Rash, Wounds Neurological: Reports: Headache. Denies: Weakness, Parasthesia, Numbness <Joseph Mace - Last Filed: 06/19/20 13:02> Physical Exam Vital Signs/Narrative: Vital Signs Temp Pulse Resp BP Pulse Ox 06/19/20 10:56 98.2 F 80 16 180/109 H 98 Inital Vital Signs reviewed: Yes General: Well nourished, Well developed, No Acute Distress Head: Normocephalic, Atraumatic Eyes: Perrl, EOMI ENT: Moist mucous membranes, No rhinorrhea Neck: Supple, Nontender Cardiovascular: Regular rate, Regular rhythm, No murmurs Respiratory: No distress, CTA bilaterally, Chest nontender Abdomen: Soft, Nontender, Nondistended, Normal bowel sounds Back: Nontender, Normal Inspection Extremities: Nontender, No edema Skin: Normal color, No rash Neurological: Alert, Oriented x3, Cranial nerves II-XII grossly intact, Normal Strength, Normal Sensation, - - Patient has a nonfocal neurological exam. NIH stroke scale is 0. He has normal strength testing of all 4 extremities Psychological: Normal affect, Normal Mood <Joseph Mace - Last Filed: 06/19/20 13:02> Vital Signs/Narrative: Vital Signs Pulse Resp BP Pulse Ox 06/19/20 12:11 82 18 187/116 H 99 <Bean Rene - Last Filed: 06/19/20 16:00> Diagnostic/Tx/Re-eval Chest X-Ray - ED: 1 View, Read by ED Physician, Read by Radiologist, No Acute Disease - Rhythm Strip Rhythm Strip: Sinus Rhythm Rate: 81 Ectopy: None - EKG Initial EKG Interpretation: Sinus Rhythm, No Acute Injury Pattern Prior: Unchanged - Medical Decision Making On arrival patient has a nonfocal neurological exam. Vital signs are stable. EKG sinus rhythm. No signs of ischemia. He was given Toradol. He was given Dilaudid. Laboratory work-up was unremarkable other than a elevated glucose consistent with his diabetes. No signs of DKA. His Tegretol level was subtherapeutic. We will give him extra dose of Tegretol and will discharge him home and to continue his home medications. <Joseph Mace - Last Filed: 06/19/20 13:02> - Medical Decision Making Patient interviewed and evaluated in concert with physician critical care physician assistant. Agree with above. Patient appears well nontoxic. No focal deficits. Patient had his pain controlled with Toradol and Dilaudid. Patient was found to have subtherapeutic Tegretol level. Patient was given a dose of his Tegretol and asked to follow-up with his neurologist. Asked to return for new or worsening symptoms. Patient agreeable and discharged home in stable condition. <Bean Rene - Last Filed: 06/19/20 16:00> ED Disposition <Joseph Mace - Last Filed: 06/19/20 13:02> <Bean Rene - Last Filed: 06/19/20 16:00> - Plan for ED Patient: Disposition: Home or Assisted Living Diagnosis: Trigeminal neuralgia, Diabetes type 2, uncontrolled, subtherapeutic tegretol level Instructions: ED Neuralgia Trigeminal Referrals: Dutch Zhong MD [Primary Care Provider] -
[2020-06-19 11:22] LABS: Absolute Lymphocyte Count 2.29 X10^3/uL (0.83-4.51); Absolute Neutrophil Count 3.5 X10^3/uL (2.0-7.7); Basophil# 0.03 X10^3/uL; Basophil% 0.5 % (0-1); Eosinophil# 0.15 X10^3/uL; Eosinophils% 2.4 % (0-5); Hematocrit 36.1 % (40-54); Hemoglobin 12.7 g/dL (13.0-16.5); Lymphocyte # 2.29 X10^3/ul (4.0); Lymphocyte % 36.1 % (19-41); Mean Corp Hgb Conc 35.2 g/dL (32-36); Mean Corpuscular Hgb 31.5 pg (27.0-32.0); Mean Corpuscular Volume 89.6 fL (80-94); Mean Platelet Vol. 10.2 fl (6.2-12.0); Monocyte# 0.32 X10^3/uL; NRBC Flagged by Analyzer 0 % (0-5); Neutrophil # 3.51 X10^3/uL (2.7-7.7); Neutrophil % 55.2 % (47-70); Platelet Count 197 K/mm3 (150-450); RBC Distribution Width SD 39.1 fl (35.1-43.9); Red Blood Count 4.03 M/mm3 (4.6-6.2); White Blood Count 6.4 K/mm3 (4.4-11.0)
[2020-06-19 11:40] LABS: Anion Gap 6 (5-15); BUN 20 mg/dL (7-18); BUN/Creat Ratio 14.7 RATIO (10-20); Chloride 99 mmol/L (98-107); Creatinine, Serum 1.36 mg/dL (0.70-1.30); EST Glomerular Filtration Rate 59 mL/min (>60); Est Glom Filt Rate - Afr Amer 71 mL/min (>60); Estimated Creatinine Clearance 62.17 ml/min; Glucose 366 mg/dL (74-106); Potassium 4.3 mmol/L (3.5-5.1); Sodium Level 131 mmol/L (136-145)
--- NOTE | 2020-06-19 11:40 | RAD_ITS ---
STUDY: X-RAY CHEST REASON FOR EXAM: Male, 49 years old. SEIZURE THIS MORNING, HX TRIGEMINAL NEURALGIA, L FACIAL AREA TECHNIQUE: Single AP portable view of the chest. COMPARISON: Comparison is made with prior study dated 10/15/2014. FINDINGS: A left-sided carina catheter is in situ with the tip at the junction of the superior vena cava and right atrium. EKG electrodes are seen. The lungs are clear and expanded. There is no demonstrated pleural abnormality. Normal size heart. Normal mediastinum and amaury. Normal visualized pulmonary arteries. Normal visualized aortic arch and descending thoracic aorta. Normal visualized thoracic spine. Normal visualized ribs, clavicles, and shoulders. There is no demonstrated abnormality of the visualized soft tissue structures of the upper abdomen. RAD/Chest 1 View (Portable) IMPRESSION: Normal x-ray examination of the chest. Electronically Signed: Steve Holguin, at 12:10 EDT , Service support ,
[2020-06-19] MEDS: 0.9% Normal Saline 1,000 ML 1000 ML IV (12:05)
[2020-06-19] MEDS: HYDROmorphone 1 MG/ML Syringe 0.5 MG IV (12:05)
[2020-06-19] MEDS: Ondansetron 4 MG/2 ML Vial IV (12:05)
[2020-06-19] MEDS: Ketorolac 15 MG/ML Vial IV ×2 (12:06→14:54)
[2020-06-19 12:11] VITALS: BP 187/116; PULSE 82; RESP 18; O2SAT 99
[2020-06-19 12:59] LABS: Carbamazepine (Tegretol) 3.8 ug/mL (4.0-12.0)
[2020-06-19] MEDS: carBAMazepine 200 MG Tablet 400 MG PO (14:54)
--- NOTE | 2020-06-19 15:02 | ED.RN ---
PORT ACCESS FLUSHED AND HEPARIN LOCKED PRIOR TO DC. PT TOLERATED WELL.
== END 2020-06-19 15:06 | disposition home or self-care (01) ==
PROVIDERS: Emergency Provider Physician Assistant Medical; PCP Family Medicine
DX: G50.0 Trigeminal neuralgia (principal); E11.65 Type 2 diabetes mellitus with hyperglycemia; Z91.14 Patient's other noncompliance with medication regimen; Z79.4 Long term (current) use of insulin; Z79.899 Other long term (current) drug therapy; Z87.891 Personal history of nicotine dependence
CPT/HCPCS: 71045; 80048; 80156; 84484; 85025; 93005; 96361; 96374; 96375; 96376; 99284; A4216; J2405

== ENCOUNTER 2020-11-14 11:50 | Emergency (ER) | payer MEDICAID, SELFPAY ==
[2020-11-14 11:50] VITALS: BP 181/101; PULSE 75; RESP 16; TEMP 36.6; O2SAT 99; BMI 32.9
--- NOTE | 2020-11-14 12:55 | ED.VIS.GEN ---
History of Present Illness Chief Complaint: Back Informant: Patient, Family Narrative: This is a 50-year-old male presenting with right-sided low back pain. Patient states his symptoms began on November 04 and were improving until today. He notes that is worse when he bends over and when he reaches above his head with his right arm. He does not recall any trauma or strenuous activity. He denies any urinary or bowel symptoms. No fevers. Patient denies any immunosuppression, chronic steroid use or injections or IVD. No chest pain shortness of breath. He states he is very concerned about the pain because he had right-sided colon cancer. He follows locally with Dr. Ibarra. - Past Medical History (1) Depression Status: Chronic (2) Diabetes type 2, uncontrolled Status: Chronic (3) History of colon cancer Status: Chronic (4) Hypertension Status: Chronic Comment: BP 131/84 today. Enc to exercise, monitor salt. Reviewed labs with patient Has not taken medication today (5) Low testosterone in male Status: Chronic Comment: On replacement (6) Sezary disease Status: Chronic (7) Trigeminal neuralgia Status: Chronic Past Medical History - Allergies and Home Meds Allergies/Adverse Reactions: Allergies erythromycin base Adverse Reaction (Severe, Verified 11/14/20 11:52) Hives loratadine [From Claritin] Adverse Reaction (Severe, Verified 11/14/20 11:52) Rash Primary Care Physician: Dutch Zhong MD [Primary Care Provider] - 1 Week if not improving Surgical History: noncontributory Lives: With Family Smoking Status: Former smoker Drugs: None Review of Systems General: Denies: Chills, Fever, Sweats Eyes: Denies: Visual changes - bilaterally, Diplopia ENT: Denies: Rhinorrhea, Sore throat Cardiovascular: Denies: Chest pain, Palpitations Respiratory: Denies: Dyspnea, Cough, Dyspnea on exertion Gastrointestinal: Denies: Abdominal pain, Nausea, Vomiting, Diarrhea, Melena, Hematochezia Genitourinary: Denies: Dysuria, Hematuria, Frequency Musculoskeletal: Reports: Back pain. Denies: Myalgias, Arthralgias, Neck pain, Swelling, Extremity Pain Skin: Denies: Rash, Wounds Neurological: Denies: Headache, Weakness, Parasthesia, Numbness Physical Exam Vital Signs/Narrative: Vital Signs Temp Pulse Resp BP Pulse Ox 11/14/20 11:50 97.8 F 75 16 181/101 H 99 Inital Vital Signs reviewed: Yes General: Well nourished, Well developed, No Acute Distress Head: Normocephalic, Atraumatic Eyes: Perrl, EOMI ENT: Moist mucous membranes, No rhinorrhea Neck: Supple, Nontender Cardiovascular: Regular rate, Regular rhythm, No murmurs Respiratory: No distress, CTA bilaterally, Chest nontender Abdomen: Soft, Nontender, Nondistended, Normal bowel sounds Back: - - Patient has right low back lumbar muscle spasm. This area is tender to palpation. There is no erythema or swelling to suggest abscess. Extremities: Nontender, No edema Skin: Normal color, No rash Neurological: Alert, Oriented x3, Cranial nerves II-XII grossly intact, Normal Strength, Normal Sensation Psychological: Normal affect, Normal Mood Diagnostic/Tx/Re-eval Clinical Impression(s) from Imaging Studies Abdomen/Pelvis CT 11/14/20 13:49 IMPRESSION: No acute inflammatory process, bowel obstruction or hydronephrosis. Electronically Signed: Sincere Krishna MD (Bro[place]) at 14:29 EDT , Service support , Laboratory Last Values WBC 5.6 K/mm3 (4.4-11.0) 11/14/20 13:20 RBC 4.15 M/mm3 (4.6-6.2) L 11/14/20 13:20 Hgb 12.8 g/dL (13.0-16.5) L 11/14/20 13:20 Hct 36.4 % (40-54) L 11/14/20 13:20 MCV 87.7 fL (80-94) 11/14/20 13:20 MCH 30.8 pg (27.0-32.0) 11/14/20 13:20 MCHC 35.2 g/dL (32-36) 11/14/20 13:20 RDW Std Deviation 39.6 fl (35.1-43.9) 11/14/20 13:20 RDW Coeff of Ever 12.4 % (11.6-14.6) 11/14/20 13:20 Plt Count 184 K/mm3 (150-450) 11/14/20 13:20 MPV 10.1 fl (6.2-12.0) 11/14/20 13:20 Immature Gran % (Auto) 0.700 % (0.0-0.9) 11/14/20 13:20 Neut % (Auto) 59.0 % (47-70) 11/14/20 13:20 Lymph % (Auto) 32.8 % (19-41) 11/14/20 13:20 Colbert % (Auto) 5.6 % (0-10) 11/14/20 13:20 Eos % (Auto) 1.4 % (0-5) 11/14/20 13:20 Baso % (Auto) 0.5 % (0-1) 11/14/20 13:20 Absolute Neuts (auto) 3.3 X10^3/uL (2.0-7.7) 11/14/20 13:20 Absolute Lymphs (auto) 1.82 X10^3/uL (0.83-4.51) 11/14/20 13:20 Nucleated RBC % 0 % (0-5) 11/14/20 13:20 Sodium 134 mmol/L (136-145) L 11/14/20 13:20 Potassium 4.4 mmol/L (3.5-5.1) 11/14/20 13:20 Chloride 101 mmol/L (98-107) 11/14/20 13:20 Carbon Dioxide 27.0 mmol/L (21.0-32.0) 11/14/20 13:20 Anion Gap 6 (5-15) 11/14/20 13:20 BUN 15 mg/dL (7-18) 11/14/20 13:20 Creatinine 1.45 mg/dL (0.70-1.30) H 11/14/20 13:20 Estim Creat Clear Calc 57.66 ml/min 11/14/20 13:20 Est GFR (MDRD) Af Amer 66 mL/min (>60) 11/14/20 13:20 Est GFR (MDRD) Non-Af 54 mL/min (>60) L 11/14/20 13:20 BUN/Creatinine Ratio 10.3 RATIO (10-20) 11/14/20 13:20 Glucose 309 mg/dL (74-106) H 11/14/20 13:20 Calcium 8.7 mg/dL (8.5-10.1) 11/14/20 13:20 - Medical Decision Making ASIC blood work and urinalysis negative. CT the pelvis also negative. Clinically I think this is a spasm of his lumbar paraspinal musculature on the right. I do not see any evidence of recurrent cancer which the patient is most afraid of. I will write for some Valium and have him use heat and gentle stretching follow-up primary care if not improving ED Disposition - Plan for ED Patient: Disposition: Home or Assisted Living Diagnosis: Lumbar paraspinal muscle spasm Instructions: ED Back Spasm, No Trauma Prescriptions: Diazepam [Valium] 5 mg PO Q8 PRN #15 tablet PRN Reason: Muscle Spasm Transmission Status: Received by [facility] [facility] Referrals: Dutch Zhong MD [Primary Care Provider] - 1 Week if not improving
[2020-11-14 13:08] LABS: Bacteria 0 SEEN /hpf (None Seen); Mucous, Urine 0 SEEN /hpf (<or=2+); Squamous Epithelial Cells - UA 0 SEEN /hpf (0-5); White Blood Cells 0 SEEN /hpf (0-5)
[2020-11-14] MEDS: Ketorolac 30 MG/ML Syringe IV (13:23)
[2020-11-14 13:35] LABS: Absolute Lymphocyte Count 1.82 X10^3/uL (0.83-4.51); Absolute Neutrophil Count 3.3 X10^3/uL (2.0-7.7); Basophil# 0.03 X10^3/uL; Basophil% 0.5 % (0-1); Eosinophil# 0.08 X10^3/uL; Eosinophils% 1.4 % (0-5); Hematocrit 36.4 % (40-54); Hemoglobin 12.8 g/dL (13.0-16.5); Lymphocyte # 1.82 X10^3/ul (4.0); Lymphocyte % 32.8 % (19-41); Mean Corp Hgb Conc 35.2 g/dL (32-36); Mean Corpuscular Hgb 30.8 pg (27.0-32.0); Mean Corpuscular Volume 87.7 fL (80-94); Mean Platelet Vol. 10.1 fl (6.2-12.0); Monocyte# 0.31 X10^3/uL; Monocyte% 5.6 % (0-10); NRBC Flagged by Analyzer 0 % (0-5); Neutrophil # 3.27 X10^3/uL (2.7-7.7); Platelet Count 184 K/mm3 (150-450); RBC Distribution Width CV 12.4 % (11.6-14.6); RBC Distribution Width SD 39.6 fl (35.1-43.9); Red Blood Count 4.15 M/mm3 (4.6-6.2); White Blood Count 5.6 K/mm3 (4.4-11.0)
[2020-11-14 13:48] LABS: Anion Gap 6 (5-15); BUN 15 mg/dL (7-18); BUN/Creat Ratio 10.3 RATIO (10-20); Calcium,Total 8.7 mg/dL (8.5-10.1); Chloride 101 mmol/L (98-107); Creatinine, Serum 1.45 mg/dL (0.70-1.30); EST Glomerular Filtration Rate 54 mL/min (>60); Est Glom Filt Rate - Afr Amer 66 mL/min (>60); Estimated Creatinine Clearance 57.66 ml/min; Glucose 309 mg/dL (74-106); Potassium 4.4 mmol/L (3.5-5.1); Sodium Level 134 mmol/L (136-145)
--- NOTE | 2020-11-14 13:49 | CT_ITS ---
INDICATION: flank pain EXAMINATION: CT ABDOMEN AND PELVIS WITH CONTRAST - right flank pain TECHNIQUE: Helically acquired images were obtained of the abdomen and pelvis following IV contrast. A radiation dose optimization technique was used for this scan. IV Contrast dosage and agent: 100 mL ISOVUE-300 Oral contrast: None. COMPARISON: 05/01/2019 FINDINGS: LOWER CHEST: Lung bases are clear. No cardiomegaly or pericardial effusion. LIVER: Homogeneous. No focal mass. GALLBLADDER AND BILIARY TREE: No calcified gallstones. No gallbladder distension or wall edema. No intra- or extrahepatic biliary ductal dilation. PANCREAS: No focal cystic or solid mass. SPLEEN: Spleen remains mildly enlarged. Calcified structure adjacent to the spleen likely sequela of prior inflammation. 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 ADRENAL GLANDS: No nodules. KIDNEYS AND URETERS: Normal renal size and position. No hydronephrosis. Simple left renal cysts are stable. PERITONEUM: No ascites or free air. No other fluid collection. BOWEL: No evidence of acute appendicitis. No stomach or bowel distension. No focal inflammatory change. LYMPH NODES: No enlarged mesenteric or retroperitoneal lymph nodes. VESSELS: Aorta is non-dilated. As reference calcifications can be associated with diabetes mellitus. URINARY BLADDER: Unremarkable given lack of distention. REPRODUCTIVE ORGANS: No pelvic masses. ABDOMINAL WALL: No discrete abdominal or pelvic wall hernia. BONES: No lytic or blastic abnormality. CT/Abdomen/Pelvis W IV Cont ONLY IMPRESSION: No acute inflammatory process, bowel obstruction or hydronephrosis. Electronically Signed: Sincere Krishna MD ([place]) at 14:29 EDT , Service support ,
[2020-11-14 14:00] VITALS: BP 158/89; PULSE 74; RESP 16; O2SAT 98
[2020-11-14 14:13] LABS: Color, Urine Yellow (Yellow); Glucose, Dipstick 1000 mg/dl (Normal); Ketone-Dipstick Negative (Negative); Leukocyte Esterase-Dipstick Negative /ul (Negative); Nitrite-Dipstick Negative (Negative); Occult Blood-Urine 10 /ul (Negative); Protein-Dipstick 500 mg/dl (Negative); Urine Bilirubin Dipstick Negative (Negative); Urine Clarity Clear (Clear); Urine Urobilinogen Normal (Normal)
[2020-11-14 14:20] LABS: Red Blood Cells-Urine 0-5 SEEN /hpf (0-5)
[2020-11-14 14:40] VITALS: PULSE 65; RESP 18
== END 2020-11-14 14:57 | disposition home or self-care (01) ==
PROVIDERS: Emergency Provider Emergency Medicine; PCP Family Medicine
DX: M62.830 Muscle spasm of back (principal); M54.5 Low back pain; I10 Essential (primary) hypertension; F32.9 Major depressive disorder, single episode, unspecified; E11.9 Type 2 diabetes mellitus without complications; E29.1 Testicular hypofunction; G50.0 Trigeminal neuralgia; G40.909 Epilepsy, unspecified, not intractable, without status epilepticus; Z85.038 Personal history of other malignant neoplasm of large intestine; Z79.4 Long term (current) use of insulin; Z79.899 Other long term (current) drug therapy; Z87.891 Personal history of nicotine dependence
CPT/HCPCS: 36591; 74177; 80048; 81001; 85025; 96374; 99282; Q9967; A4216

== ENCOUNTER 2020-12-13 10:34 | Emergency (ER) | payer MEDICAID, SELFPAY ==
[2020-12-13 10:35] VITALS: BP 181/93; PULSE 76; RESP 18; TEMP 36.3; O2SAT 98; BMI 33.0
--- NOTE | 2020-12-13 11:00 | ED.VISSUMM ---
- ER Visit Summary Date of Service: 12/13/20 Chief Complaint: Trigeminal neuralgia flare History of Present Illness: The patient is a [address] Zhong and Dr. Peña, a neurologist in [place] for his trigeminal neuralgia. He saw the neurologist 3 days ago and had his Tegretol decreased because his level was toxic. States that the pain on the left side of his face is worsened since then. He describes it as a sharp pain is 10 of 10 severity. Is worsened by nothing. Is taking his Tegretol without relief. Patient reports has had trigeminal neuralgia since he was 16. This is his 69th flare. This is his fifth flare in the past 12 months. States that typically he is given a dose of Dilaudid for this. However, states he is not discharged with pain medications. He has been on gabapentin and Trileptal in the past without relief. On review of systems patient planes of diarrhea 3 times a day for the past 2 days. No blood in his stools. He denies any other complaints. Physical Examination: Vitals: Stable. Afebrile. General: Well-nourished and well-developed. Head: Normocephalic atraumatic. Neck: Supple, no lymphadenopathy. No JVD. Nontender. Cardiovascular: Regular rate and rhythm. No murmurs. Respiratory: No respiratory distress. Clear to auscultation bilaterally. Abdominal: Soft, nontender, nondistended, normal bowel sounds. No guarding, rebound, or peritoneal signs. Back: Nontender. Extremities: Nontender, no edema. Skin: Normal color, no rash. Neurologic: Alert and oriented ?3. Cranial nerves II through XII are intact. Normal strength and sensation. Psych: Normal affect. Emergency Department Course and Treatment: An [facility] report was obtained which shows no prescriptions for opiates in the past 2 years. Patient was given a dose of Dilaudid IM and Zofran p.o. here. Treatment Plan: Patient will be discharged prescription for 10 Clarissa. He is instructed to contact his neurologist and speak with her about the pain worsening since decreasing the Tegretol and see if there are other medications that she thinks would be helpful. Return to the emergency department for any worsening symptoms. Disposition: To home in improved and stable condition. Impression: 1. Trigeminal neuralgia. This note was generated with [employer] software. It may contain incorrect words, spelling, and punctuation that were not noted in review of the chart prior to signing ED Disposition - Plan for ED Patient: Instructions: ED Trigeminal Neuralgia Prescriptions: Hydrocodone Bitart/Apap 5-325 [Clarissa 5MG-325MG] 1 tablet PO Q6H PRN PRN 3 Days #10 tab PRN Reason: Pain Prescription Printed Additional Instructions: Follow up with Dr. Peña as soon as possible for further treatment.
[2020-12-13] MEDS: Ondansetron ODT 4 MG Tablet PO (11:12)
[2020-12-13] MEDS: HYDROmorphone 1 MG/ML Syringe IM (11:12)
[2020-12-13 11:17] VITALS: BP 154/75
[2020-12-13] MEDS: Ketorolac 30 MG/ML Syringe IM (11:54)
== END 2020-12-13 11:57 | disposition home or self-care (01) ==
LOC: ED 11:42
PROVIDERS: Emergency Provider Emergency Medicine; PCP Family Medicine
DX: G50.0 Trigeminal neuralgia (principal); R19.7 Diarrhea, unspecified; I10 Essential (primary) hypertension; J45.909 Unspecified asthma, uncomplicated; K21.9 Gastro-esophageal reflux disease without esophagitis; E11.9 Type 2 diabetes mellitus without complications; E78.00 Pure hypercholesterolemia, unspecified; G40.909 Epilepsy, unspecified, not intractable, without status epilepticus; Z87.19 Personal history of other diseases of the digestive system; Z90.49 Acquired absence of other specified parts of digestive tract; Z79.4 Long term (current) use of insulin; Z79.899 Other long term (current) drug therapy
CPT/HCPCS: 96372; 99285

== ENCOUNTER 2020-12-17 13:42 | Outpatient (RCR) | payer MEDICAID, SELFPAY ==
--- NOTE | 2021-01-04 14:44 | HP.FCE ---
Floor (Occasional 1-33% of Day): 20# Floor (Frequent 34-66% of Day): 10# Floor (Constant 67-100% of Day): NA Floor PDL: Light Knee (Occasional 1-33% of Day): 20# Knee (Frequent 34-66% of Day): 10# Knee (Constant 67-100% of Day): NA Knee PDL: Light Waist (Occasional 1-33% of Day): 15# Waist (Frequent 34-66% of Day): 8# Waist (Constant 67-100% of Day): NA Waist PDL: Sedentary-Light Shoulder (Occasional 1-33% of Day): 15# Shoulder (Frequent 34-66% of Day): 8# Shoulder (Constant 67-100% of Day): NA Shoulder PDL: Sedentary-Light Overhead (Occasional 1-33% of Day): NA Overhead (Frequent 34-66% of Day): NA Overhead (Constant 67-100% of Day): NA Overhead PDL: No Ability Bending: Occasional Ability (1-33% of day) Comments: low occasional ability with use of external support Squatting: Occasional Ability (1-33% of day) Comments: low occasional with use of external support Reaching out: Occasional Ability (1-33% of day) Reaching up: Occasional Ability (1-33% of day) Comments: low occasional ability due to pain with tasks Sitting: Frequent Ability (34-66% of day) Walking: Occasional Ability (1-33% of day) Standing: Occasional Ability (1-33% of day) Duration Sedentary Sedentary Light Light Light Medium Medium Medium Heavy Very Heavy Heavy Occasional (0-33% of day) Frequent (34-66% of day) Constant (67-100% of day) 10 # Negligible Negligible 15 # 8 # Negligible 20 # 10# Negli. 35 # 18 # 7 # 50 # 25 # 10 # 75 # 100 # >100 # 38 # 50 # >50 # 15 # 20 # >20 # Weight:: 97.069 kg Hand Dominance: Right Medical History Including Restrictions: This 50 year old male was seen for FCE assessment. pt arrives with multiple medical hx. Pt underwent 6 months of chemo and 1 month of radiation following his colon cancer dx. pt states since then he has had other health issues of IBS, Nephropathy bilateral LE. pt states he has chronic pancreatitis. pt also has dx of trigeminal neuralgia DM, depression, Diagnoses: Colon Cancer stage IIII dx 2014. IBS dx 2016. Nephropathy dx 2018. Seizure disorder dx last seizure was 12/14/20 (pt states last year he has had 5 seizures). Vertigo dx 2016. Trigeminal neuralgia dx 2002 symptoms started in 1987. DM dx 2002. pancreas shut down in 2002. High Cholesterol dx 2002. Anxiety dx 1999. High blood pressure dx 1982. Depression dx in 1989 Symptoms: Back pain. IBS. numbness left side of face. left eye blurriness. pain left side of face. leg pain. weakness. fatigue Pain: Pt states low back pain is 4/10 currently. pt states he takes Tylonal at 9am. Work History: Pt states he was last employed at [employer] in 2004. 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 Pt states he had to leave this position due to his anxiety. Behavioral: Pt was cooperative during the assessment ADLS: pt states he lives in one story home with is mother. Pt states three entry steps no handrail. pt independent with ambulation. Tub/shower combo, HHS, glass doors to get in/out of tub/shower, comfort height commode. PT states he does have bed side commode if needed. pt states he is IND. with cooking/cleaning and laundry. states they spend one day cleaning. states he is ind. with driving. Physical Examination: resting heart reate 79 ROM: pt demo with limited lumbar ext. limited lumbar flex. All other UB and LB ROM is WFL Strength: Bilateral UE 4-/5 grossly throughout. LE MMT 4/5 grossly throughout Right Research Laboratory Manager Strength Average: 41.66 Right Research Laboratory Manager Strength Percentile: <.8% Left Research Laboratory Manager Strength Average: 38.33 Left Research Laboratory Manager Strength Percentile: <1.8% Right Lateral Pinch Average: 14.33 Right Lateral Pinch Percentile: <10% Left Lateral Pinch Average: 14.66 Left Lateral Pinch Percentile: 10% Right Tripod Pinch Average: 14.00 Right Tripod Pinch Percentile: 10% Left Tripod Pinch Average: 14.00 Left Tripod Pinch Percentile: 25% Sensation: Brohman-Javon monofilament sensory testing. right and left testing at 3.22 indicates a Diminished Light Touch Fine Motor: 9-hole peg testing. right 32.22 sec.=0%. left 30.19 sec.= 0% Balance: pt demo with fair+ balance noted increase wt. shifting and small MILI Bending: pt demo poor ability to bend forward three times with external support- pt had x 3 LOB with correction reaching out for tabletop. pt demo the ability to bend forwarded 5/10x with external support - heart rate 81 pt dizzy and lightheaded pt can bend forward with external support on a low occasional ability Squatting: pt demo the ability to squat three times with external support- pt attempted with external support 8/10 with external support and difficulty pt can squat on a low occasional abiltly Kneeling: pt demo the ability to kneel three times with external support. pt unable to perform further kneeling. pt can kneel on a low occasional ability Reaching out/up: pt demo the ability to reach out three times, 10x and 10x rapidly. pt can reach out on an frequent ability. pt demo the ability to reach up x3, 6/10x due to increase in right shoulder pain. pt can reach up on a low occasional ability Walking: pt demo the ability to ambulate with a reciprocal gait pattern and fair speed. Pt demonstrated the ability to ambulate 10 min with c/o increase back pain 6/10. pt can ambulate on a occasional ability. Standing: pt demo the ability to stand 4 min. pt did shift body weight during this time. pt c/o pain 6/10. pt can stand on an occasional ability Sitting: pt demo the ability to sit fro 20 min prior to needing to stand- pt states he stood due to back pain. pt did shift body weight during is 20 min sitting time- pt can sit on a occasional ability. Climbing Stairs: pt demonstrated the ability to ascend/descend 10 steps with use of hand rail and reciprocal step pattern. Floor Lift: pt demo the ability to lift 20# maximally from this level. pt demo good lift mechanics Knee Lift: pt demo the ability to lift 20# maximally from this level. pt demo good lift mechanics Waist Lift: pt demo the ability to lift 15# maximally from this level. pt demo good lift mechanics Shoulder Lift: pt demo the ability to lift 15# maximally from this level. pt demo good lift mechanics Overhead Lift: unable Carrying: pt demo the ability to carry 15# for 15 feet with good ability
--- NOTE | 2021-01-04 14:44 | HP.OTFCE.D ---
FCE D/C Summary - Discharge REGINALDO HUFFMAN was seen for a one time visit for an FCE on 12/17/20 and is discharged.
== END 2020-12-17 19:00 | disposition home or self-care (01) ==
LOC: OT 13:42
PROVIDERS: PCP Family Medicine; Referring Provider Family Medicine; Visit Provider Family Medicine
DX: Z02.71 Encounter for disability determination (principal); G50.0 Trigeminal neuralgia; G40.909 Epilepsy, unspecified, not intractable, without status epilepticus; C18.0 Malignant neoplasm of cecum
CPT/HCPCS: 97750

== ENCOUNTER 2020-12-21 13:36 | Emergency (ER) | payer MEDICAID, SELFPAY ==
[2020-12-21 13:37] VITALS: BP 172/106; PULSE 81; PULSE 82; RESP 15; TEMP 36.8; O2SAT 97; BMI 33.9
--- NOTE | 2020-12-21 15:00 | ED.VIS.GEN ---
History of Present Illness Chief Complaint: Other, Pain/Inj Informant: Patient Narrative: 1-year-old male presenting with what he believes is trigeminal neuralgia which has been a new issue for him recently. Patient has been seen by Dr. Mathews was originally on Tegretol 600 mg twice daily. He was found to be supratherapeutic on this and this was held for a while. He did have some facial pain and came to the ER and was seen at [facility]. Patient did follow-up with his neurologist and she restarted his Tegretol. He said that he had a week free of pain and now is having pain in his face again. He states that he was told to come back to the ER if he had any pain for shot of Toradol and Dilaudid. He was given a narcotic prescription at his last discharge. He states he does not know what the plan is per his neurologist. - Past Medical History (1) Diabetes type 2, uncontrolled Status: Chronic (2) Hypertension Status: Chronic Comment: BP 131/84 today. Enc to exercise, monitor salt. Reviewed labs with patient Has not taken medication today (3) Low testosterone in male Status: Chronic Comment: On replacement (4) Trigeminal neuralgia Status: Chronic Past Medical History - Allergies and Home Meds Allergies/Adverse Reactions: Allergies erythromycin base Adverse Reaction (Severe, Verified 12/21/20 13:40) Hives loratadine [From Claritin] Adverse Reaction (Severe, Verified 12/21/20 13:40) Rash Primary Care Physician: Dutch Zhong MD [Primary Care Provider] - Prior records reviewed: Yes Past Medical History: - - Reviewed in problem list Surgical History: noncontributory Lives: Spouse/ Significant Other Smoking Status: Former smoker Alcohol: None Drugs: None Review of Systems General: Denies: Chills, Fever, Sweats Eyes: Denies: Visual changes - bilaterally, Diplopia Cardiovascular: Denies: Chest pain, Palpitations Respiratory: Denies: Dyspnea, Cough, Sputum Gastrointestinal: Denies: Abdominal pain, Nausea Genitourinary: Denies: Dysuria, Hematuria Musculoskeletal: Reports: - - Left-sided facial pain. Denies: Myalgias, Arthralgias Skin: Denies: Rash, Abscess Neurological: Denies: Headache, Weakness, Parasthesia Psych: Denies: Depression, Anxiety Physical Exam Vital Signs/Narrative: Vital Signs Temp Pulse Resp BP Pulse Ox 12/21/20 13:37 98.3 F 82 15 172/106 H 97 Inital Vital Signs reviewed: Yes General: Well nourished, No Acute Distress Head: Normocephalic, Atraumatic, - - Left-sided facial pain Eyes: Perrl, EOMI ENT: Moist mucous membranes, No rhinorrhea Cardiovascular: Regular rate, Regular rhythm Respiratory: No distress, CTA bilaterally Abdomen: Soft, Nontender, Nondistended Skin: Normal color, No rash, - - Tenderness to palpation left side of face Neurological: Alert, Oriented x3 Psychological: Normal affect, Normal Mood Diagnostic/Tx/Re-eval - Medical Decision Making Patient seen and evaluated for his facial pain which appears to be somewhat new to him but is not a new issue overall. Patient has been on Tegretol for this. He states he had a week free of pain and now his pain back. He reports that his plan that was told to him is to come to the ER for breakthrough pain and get a shot of Dilaudid and Toradol. I discussed this with Dr. Mathews and she states that was not her plan. She states that she does not believe he has trigeminal neuralgia and that he has focal seizures and is experiencing this in the left side his face. She states she told him this at his last visit. He is to be on Tegretol 600 mg twice daily. She states that after I treat his pain in the ER he should call her office and she will get him to a trigeminal neuralgia specialist. This was discussed with him and he is amenable this plan. He is given IM Dilaudid and Toradol. He will be discharged home in stable condition. Given that this is somewhat of a new but chronic issue and he already received narcotics for this I will withhold that at this time. Patient given return precautions. Patient stable for discharge. Impression: 1. Trigeminal neuralgia pain ED Disposition - Plan for ED Patient: Referrals: Dutch Zhong MD [Primary Care Provider] -
[2020-12-21] MEDS: Ketorolac 15 MG/ML Vial IM (15:22)
[2020-12-21] MEDS: HYDROmorphone 0.5 MG/0.5 ML SYRINGE IM (15:22)
--- NOTE | 2020-12-21 15:58 | ED.VISSUMM ---
- ER Visit Summary Date of Service: 12/21/20 Chief Complaint: [] History of Present Illness: The patient is a 50 M [] Physical Examination: [] Test Results: [] Emergency Department Course and Treatment: [] Treatment Plan: [] Disposition: [] Impression: [] This note was generated with [employer] dictation software. It may contain incorrect words, spelling, and punctuation that were not noted in review of the chart prior to signing ED Disposition - Plan for ED Patient: Disposition: Home or Assisted Living Instructions: ED Trigeminal Neuralgia Referrals: Dutch Zhong MD [Primary Care Provider] -
[2020-12-21 16:11] VITALS: BP 147/82; PULSE 75; RESP 16; O2SAT 97
== END 2020-12-21 16:12 | disposition home or self-care (01) ==
PROVIDERS: Emergency Provider Student in an Organized Health Care Education/Training Program; PCP Family Medicine
DX: G50.0 Trigeminal neuralgia (principal); E11.9 Type 2 diabetes mellitus without complications; I10 Essential (primary) hypertension; Z79.899 Other long term (current) drug therapy; Z87.891 Personal history of nicotine dependence; Z79.4 Long term (current) use of insulin
CPT/HCPCS: 96372; 99282

== ENCOUNTER 2020-12-24 23:26 | Emergency (ER) | payer MEDICAID, SELFPAY ==
[2020-12-24 23:27] VITALS: BP 205/91; PULSE 77; RESP 20; TEMP 36.3; O2SAT 99; BMI 34.1
[2020-12-24 23:30] VITALS: BP 184/89; PULSE 77; RESP 18; O2SAT 100
--- NOTE | 2020-12-24 23:45 | EX.ED.DYSGE1 ---
HPI History of Present Illness Chief Complaint: Other, Pain/Inj Informant: patient Onset/Context/Timing Onset: Today Timing: Continuous Quality: Left facial pain. Current Severity: Moderate Maximum Severity: Moderate Associated Symptoms Associated Symptoms: None Narrative Narrative: 50-year-old male complaining of left-sided facial pain with a history of trigeminal neuralgia that he has had for many years. He has had over 70 episodes of this type of pain before in the past. He is currently on Tegretol. He really denies any other symptoms. Prior similar symptoms: Yes Recent Illness/Hospitalization: No PFSH PFS Medical History Alcohol abuse Anemia Asthma Cancer Carpal tunnel syndrome Depressive disorder Diabetes type 2, controlled GERD (gastroesophageal reflux disease) Hepatitis C High cholesterol History of alcohol abuse HTN (hypertension) Hypoglycemia Neuropathy Obesity Pancreatitis portacath placement Seizure disorder Trigeminal nerve disorder Home Medications cholecalciferol (vitamin D3) 1,000 unit PO DAILY 10/10/13 [History Last Taken 11/13/15] ascorbic acid (vitamin C) 500 mg PO DAILY@0800 07/18/14 [History Last Taken 11/13/15] sertraline 100 mg PO DAILY 07/18/14 [History Last Taken 11/13/15] multivitamin with folic acid 1 tab PO DAILY 10/21/14 [History Last Taken 11/13/15] carbamazepine 800 mg PO BID 12/30/14 [History Last Taken 11/13/15] cyanocobalamin (vitamin B-12) 500 mcg PO DAILY@0800 11/24/16 [History Last Taken Unknown] rosuvastatin 40 mg PO DAILY 11/24/16 [History Last Taken Unknown] atenolol 50 mg tablet 50 mg PO BID tab 02/14/18 [History Last Taken Unknown] insulin lispro [Humalog KwikPen (U-] 42 unit SUBCUT .COMPLEX 10/30/18 [History Last Taken Unknown] testosterone cypionate 200 mg IM QWEEK 10/30/18 [History Last Taken Unknown] lisinopril 40 mg PO DAILY 05/09/19 [History Last Taken Unknown] insulin glargine 80 units SC BREAKFAST 06/19/20 [History Last Taken Unknown] insulin glargine 120 units SC QHS 06/19/20 [History Last Taken Unknown] fenofibrate nanocrystallized 145 mg PO DAILY 11/14/20 [History Last Taken Unknown] fish oil-dha-epa 1 each PO DAILY 11/14/20 [History Last Taken Unknown] aripiprazole 2 mg PO DAILY 12/24/20 [History Last Taken Unknown] Allergy/AdvReac Type Severity Reaction Status Date / Time erythromycin base AdvReac Severe Hives Verified 12/24/20 23:26 loratadine [From Claritin] AdvReac Severe Rash Verified 12/24/20 23:26 Family History Grandmother Cervical cancer Diabetes Hypertension Mother Uterine cancer Arthritis Diabetes Hypertension Grandfather Heart disease Arthritis Diabetes Hypertension Unknown Diabetes Arthritis Father Arthritis Diabetes Hypertension Sister Diabetes Hypertension Surgical History H/O left hemicolectomy Hx of appendectomy Social History Smoking Status: Former smoker Tobacco: How many years used: 6 second hand exposure: No alcohol intake: current substance use type: does not use ROS ROS ED ROS Narrative Patient denies any significant recent illnesses or symptoms except for mild intermittent diarrhea. Constitutional Constitutional ED: Denies chills or fever(s) Eyes Eyes: Denies change in vision ENT ENT ED: Denies ear pain Cardiovascular Cardiovascular: Denies chest pain Respiratory/Chest Respiratory/Chest: Denies cough or dyspnea Gastrointestinal Gastrointestinal: Reports diarrhea; Denies abdominal pain Genitourinary Genitourinary ED: Denies dysuria Musculoskeletal Musculoskeletal: Denies myalgias Integumentary Denies rash Neurologic Neurologic: Denies headache(s) Endocrine Endocrinology: Denies polyuria Allergic/Immunologic Allergic/Immunologic ED: Denies urticaria EXAM Physical Exam Narrative Exam Narrative: Middle-aged male no acute distress. Vital signs stable afebrile. Accompanied by his mother. Complaining of left facial pain which she states is secondary to trigeminal neuralgia. He has had this multiple times in the past. Const Vital Signs: 12/24/20 23:27 12/24/20 23:30 12/25/20 01:04 Temperature 97.3 F L Temperature Source Oral Pulse Rate 77 77 77 Respiratory Rate 20 H 18 18 Blood Pressure 205/91 H 184/89 H 180/91 H Blood Pressure Mean 129 120 Pulse Ox 99 100 98 Oxygen Delivery Method Room Air Room Air Positive well nourished and well developed General Appearance ED: well developed HEENT Reports moist mucous membranes Negative for trauma or tenderness Eyes PERRL Neck no lymphadenopathy, supple and no JVD General: Negative for tenderness Chest Wall inspection of chest normal Resp normal respiratory effort and clear to auscultation bilaterally Cardio regular rate, regular rhythm and no murmurs Back/Spine no CVA tenderness Extremity normal to inspection Neuro oriented x3 Sensorium / Orientation: alert; Negative for orientation impaired Motor Exam: strength 5/5 throughout Psych mental status grossly normal Skin no rashes or lesions noted MDM MDM MDM Narrative Medical decision making narrative: Middle-aged male history of trigeminal neuralgia since the age of 16. He states he has had over 70 episodes of this. States that the pain came on about 15 minutes ago. Consistent with his prior symptoms. No change. States he typically comes in the emergency department and gets pain medication both IM Dilaudid and Toradol. He also requested that we obtain a Tegretol level which he is on chronically to try to prevent or lessen his trigeminal neuralgia flares. Patient will be given an IM injection of Toradol and Dilaudid. His mother is here to write him home. He requested us to obtain a Tegretol level. Tegretol level returned was 13.7. On repeat exam patient is doing well at 12:44 AM. His pain is improving after the IM injection of Toradol and Dilaudid. He is comfortable being discharged to home. Otherwise exam is unchanged. Lab Data Labs: Laboratory Results - last 24 hr 12/24/20 23:59 Carbamazepine 13.7 H Discharge Plan Triage Chief Complaint: Other, Pain/Inj ED Provider: Galdino Hogan Dx/Rx/DC Orders Clinical Impression: Trigeminal neuralgia Instructions: ED Trigeminal Neuralgia Prescriptions: No Action cholecalciferol (vitamin D3) 1,000 UNIT capsule 1,000 unit PO DAILY RF: 0 atenolol 50 mg tablet 50 mg PO BID RF: 0 sertraline 100 MG tablet 100 mg PO DAILY RF: 0 ascorbic acid (vitamin C) 500 MG tablet 500 mg PO DAILY@0800 RF: 0 multivitamin with folic acid 1 TABLET tablet 1 tab PO DAILY RF: 0 carbamazepine 200 MG tablet 800 mg PO BID RF: 0 lisinopril 20 MG tablet 40 mg PO DAILY RF: 0 testosterone cypionate 200 MG/ML oil 200 mg IM QWEEK RF: 0 insulin lispro [Humalog KwikPen Insulin] 100 UNIT/ML insulin pen 42 unit subcut .COMPLEX RF: 0 insulin glargine 100 UNITS/ML insulin pen 120 units SC QHS RF: 0 insulin glargine 100 UNITS/ML insulin pen 80 units SC BREAKFAST RF: 0 fenofibrate nanocrystallized 145 MG tablet 145 mg PO DAILY RF: 0 fish oil-dha-epa 1 EACH capsule 1 each PO DAILY RF: 0 aripiprazole 2 mg tablet 2 mg PO DAILY RF: 0 cyanocobalamin (vitamin B-12) 500 MCG tablet 500 mcg PO DAILY@0800 RF: 0 rosuvastatin 40 MG tablet 40 mg PO DAILY RF: 0 Primary Care Provider: Dutch Zhong Referrals: Dutch Zhong MD [Primary Care Provider] - 3-5 Days if not improving Activity Restrictions/Additional Instructions: Follow-up your primary care physician as needed. Continue your current medications. Disposition Disposition: Home, self care Discharge Date/Time: 12/25/20 01:06
[2020-12-24] MEDS: Ketorolac 60 MG/2 ML Vial IM (23:51)
[2020-12-24] MEDS: HYDROmorphone 1 MG/ML Syringe IM (23:54)
[2020-12-25 00:30] LABS: Carbamazepine (Tegretol) 13.7 ug/mL (4.0-12.0)
[2020-12-25 01:04] VITALS: BP 180/91; PULSE 77; RESP 18; O2SAT 98
== END 2020-12-25 01:06 | disposition home or self-care (01) ==
PROVIDERS: Emergency Provider Emergency Medicine; PCP Family Medicine
DX: G50.0 Trigeminal neuralgia (principal); I10 Essential (primary) hypertension; J45.909 Unspecified asthma, uncomplicated; G56.00 Carpal tunnel syndrome, unspecified upper limb; F32.9 Major depressive disorder, single episode, unspecified; K21.9 Gastro-esophageal reflux disease without esophagitis; E11.40 Type 2 diabetes mellitus with diabetic neuropathy, unspecified; E66.9 Obesity, unspecified; Z68.34 Body mass index [BMI] 34.0-34.9, adult; E78.00 Pure hypercholesterolemia, unspecified; G40.909 Epilepsy, unspecified, not intractable, without status epilepticus; Z86.2 Personal history of diseases of the blood and blood-forming organs and certain disorders involving the immune mechanism; Z86.19 Personal history of other infectious and parasitic diseases; Z87.19 Personal history of other diseases of the digestive system; Z79.4 Long term (current) use of insulin; Z79.899 Other long term (current) drug therapy; Z87.891 Personal history of nicotine dependence
CPT/HCPCS: 80156; 96372; 99284

== ENCOUNTER → 2021-04-20 | Outpatient (CLI) | payer MEDICAID, SELFPAY | END | disposition home or self-care (01) | LOC: LABSPEC 12:53 | PROVIDERS: PCP Family Medicine; Visit Provider Internal Medicine Medical Oncology | DX: D64.9 Anemia, unspecified (principal) | CPT/HCPCS: 82274 ==

== ENCOUNTER → 2021-05-25 08:05 | Outpatient (CLI) | payer MEDICAID, SELFPAY ==
[2021-05-25 09:52] LABS: Carbamazepine (Tegretol) 11.9 ug/mL (4.0-12.0)
[2021-05-25 10:08] LABS: Sodium Level 133 mmol/L (136-145)
[2021-05-26 17:07] LABS: Free Kappa Light Chains 35.6 mg/L (3.3-19.4); Free Lambda Light Chains 22.5 mg/L (5.7-26.3)
== END ==
PROVIDERS: PCP Family Medicine; Referring Provider Psychiatry & Neurology Neurology; Visit Provider Psychiatry & Neurology Neurology
DX: G62.9 Polyneuropathy, unspecified (principal); G50.0 Trigeminal neuralgia
CPT/HCPCS: 36415; 80156; 82746; 83883; 84295

== ENCOUNTER → 2021-06-02 09:13 | Outpatient (CLI) | payer MEDICAID, SELFPAY ==
[2021-06-04 13:07] LABS: Albumin 3.5 g/dL (2.9-4.4); Alpha-1-Globulins 0.2 g/dL (0.0-0.4); Alpha-2-Globulins 1.1 g/dL (0.4-1.0); Gamma Globulin 1.1 g/dL (0.4-1.8); Immunoglobulin A 160 mg/dL (90-386); Immunoglobulin G 1052 mg/dL (603-1613); Immunoglobulin M 96 mg/dL (20-172); PROEL- TOTAL PROTEIN 6.9 g/dL (6.0-8.5)
== END ==
PROVIDERS: PCP Family Medicine; Referring Provider Psychiatry & Neurology Neurology; Visit Provider Psychiatry & Neurology Neurology
DX: G62.9 Polyneuropathy, unspecified (principal)
CPT/HCPCS: 36415; 82784; 84165; 86334; 86335

== ENCOUNTER 2021-11-21 12:07 | Emergency (ER) | payer MEDICAID, SELFPAY ==
[2021-11-21 12:08] VITALS: BP 167/76; PULSE 65; RESP 16; TEMP 35.9; O2SAT 100; BMI 34.3
--- NOTE | 2021-11-21 12:17 | EDS_ITS ---
HPI History of Present Illness Chief Complaint: Abn Labs Detail of Chief Complaint: Elevated potassium on blood work drawn 2 days ago Informant: patient Narrative Narrative: Patient presents to the emergency department stating that he had bl ood work performed 2 days ago by his primary care physician. Patient was called 2 days ago and told he had a potassium of 6.9 and to go to the nearest emergency department for evaluation. Patient was in [place] at the time and decided that he did not want to go. He presents today for evaluation without any complaints. Patient states that he had high potassium one other time. He does not take potassium. Patient is asymptomatic otherwise. Prior similar symptoms: Yes PFSH [facility] Medical History (Updated 11/21/21 @ 13:[address] Tiffani Frank, DO) Alcohol abuse Anemia Anemia Asthma Cancer Carpal tunnel syndrome Depressive disorder Diabetes type 2, controlled GERD (gastroesophageal reflux disease) Hepatitis C High cholesterol History of alcohol abuse History of colon cancer HTN (hypertension) Hypoglycemia Neuropathy Obesity Pancreatitis portacath placement Seizure disorder Trigeminal nerve disorder Home Medications cholecalciferol (vitamin D3) 1,000 unit PO DAILY 10/10/13 [History Last Taken 11/13/15] sertraline 100 mg PO DAILY 07/18/14 [History Last Taken 11/13/15] multivitamin with folic acid 1 tab PO DAILY 10/21/14 [History Last Taken 11/13/15] cyanocobalamin (vitamin B-12) 500 mcg PO DAILY@0800 11/24/16 [History Last Taken Unknown] rosuvastatin 40 mg PO DAILY 11/24/16 [History Last Taken Unknown] atenolol 50 mg tablet 50 mg PO BID tab 02/14/18 [History Last Taken Unknown] fenofibrate nanocrystallized 145 mg PO DAILY 11/14/20 [History Last Taken Unknown] fish oil-dha-epa 1 each PO DAILY 11/14/20 [History Last Taken Unknown] aripiprazole 2 mg PO DAILY 12/24/20 [History Last Taken Unknown] insulin glargine 100 unit/mL (3 mL) subcutaneous pen 25 unit SUBCUT .QAM & HS ml 05/20/21 [History Last Taken Unknown] insulin lispro 100 unit/mL subcutaneous pen 18 unit SUBCUT .QID ml 05/20/21 [History Last Taken Unknown] lisinopril 40 mg tablet 40 mg PO DAILY 05/20/21 [History Last Taken Unknown] testosterone cypionate 200 mg/mL intramuscular kit 200 mg IM Q2W 05/20/21 [History Last Taken Unknown] carbamazepine 200 mg tablet 600 mg PO BID #180 tab 08/10/21 [Rx Last Taken Unknown] omeprazole 20 mg capsule,delayed release 20 mg PO DAILY cap 08/10/21 [History Last Taken Unknown] Allergy/AdvReac Type Severity Reaction Status Date / Time erythromycin base AdvReac Severe Hives Verified 11/21/21 12:09 loratadine [From Claritin] AdvReac Severe Rash Verified 11/21/21 12:09 Family History Grandmother Cervical cancer Diabetes Hypertension Trigeminal neuralgia Mother Uterine cancer Arthritis Diabetes Hypertension Grandfather Heart disease Arthritis Diabetes Hypertension Unknown Diabetes Arthritis Father Arthritis Diabetes Hypertension Sister Diabetes Hypertension Uncle CVA (cerebral vascular accident) Aunt Cerebral aneurysm Surgical History H/O left hemicolectomy Hx of appendectomy Social History Smoking Status: Former smoker Tobacco: How many years used: 20 how long ago did patient quit smoking: quit 2003 second hand exposure: No alcohol intake: former details: quit 2003 substance use type: former substance user Date of last use: Used Marijuana since he was a teenager ROS ROS ED ROS Narrative Encounter for elevated potassium on lab work from 2 days ago Constitutional Constitutional ED: Reports systems reviewed and no addt'l complaints, except as documented; Denies body ache(s), change in weight or chills Eyes Eyes: Denies acute decrease in peripheral vision, change in vision, double vision or loss of vision ENT ENT ED: Reports none; Denies ear pain, lip swelling, loss taste/smell, neck pain, otalgia or sore throat Cardiovascular Cardiovascular: Reports none; Denies abdominal pain, chest pain with activity, leg edema, lightheadedness, palpitations, rapid heart rate or syncope Respiratory/Chest Respiratory/Chest: Reports none; Denies change in mental status, dry cough, dyspnea, hemoptysis, shortness of breath at rest or shortness of breath with exertion Gastrointestinal Gastrointestinal: Reports none; Denies abdominal pain, change in stool character, diarrhea, hematemesis, hematochezia, melena, rectal bleeding or vomiting Genitourinary Genitourinary ED: Reports none; Denies abdominal discomfort, anuria, dysuria, genital pain or polyuria Musculoskeletal Musculoskeletal: Reports none; Denies arthralgias, back pain, difficulty walking, extremity pain, muscle weakness or myalgias Integumentary Reports none; Denies abscess or rash Neurologic Neurologic: Reports none; Denies abnormal gait, confusion, focal weakness, frequent falls, headache(s), loss of vision, numbness, paresthesias, radicular pain, vertigo or weakness Psychiatric Psychiatric: Reports systems reviewed and no addt'l complaints, except as documented and none; Denies behavioral changes, confusion, difficulty concentrating, hallucinations, suicidal ideation, tactile hallucinations or visual hallucinations Endocrine Endocrinology: Denies none, cold intolerance, excessive sweating, fatigue or heat intolerance Hematologic/Lymphatic Hematologic/Lymphatic: Reports none; Denies anemia, easy bleeding or easy bruising Allergic/Immunologic Allergic/Immunologic ED: Denies as per HPI, none, lip swelling, mouth swelling, throat swelling, tongue swelling or hives EXAM Physical Exam Const Vital Signs: 11/21/21 12:08 11/21/21 12:43 Temperature 96.7 F L Temperature Source Temporal Pulse Rate 65 65 Respiratory Rate 16 Respiratory Effort Normal Non-Labored Respiratory Pattern Normal Blood Pressure 167/76 H 147/83 H Blood Pressure Mean 106 104 Pulse Ox 100 Oxygen Delivery Method Room Air Positive well nourished and well developed General Appearance ED: well developed and NAD HEENT Reports TM's clear and moist mucous membranes normocephalic and atraumatic; Negative for trauma or tenderness Tympanic Membrane ED: Yes TM's clear Eyes PERRL and EOMs intact bilaterally General Eye ED: Negative for pale conjunctiva or scleral icterus Neck no lymphadenopathy, supple and no JVD General: Negative for tenderness Chest Wall inspection of chest normal and palpation of chest normal Chest: Negative for tenderness Resp normal respiratory effort and clear to auscultation bilaterally Effort and Inspection: Negative for respiratory distress or pain with movement Auscultation: Negative for rhonchi, wheezes or diminished lung sounds Cardio regular rate, regular rhythm, S1 normal heart sound, S2 normal heart sound and no murmurs Peripheral Pulses: pulses 2+ throughout GI normal to inspection, nondistended, normoactive bowel sounds, soft to palpation, non-tender, non-distended and no masses Back/Spine no CVA tenderness and no thoracic nor lumbar tenderness Extremity normal to inspection General Extremety ED: Negative for edema General Extremity: Negative for edema Neuro oriented x3, CN's II-XII intact bilaterally, no sensory deficits noted and gait normal Sensorium / Orientation: awake, alert, oriented to person, oriented to place and oriented to time Motor Exam: strength 5/5 throughout and strength abnormal Psych mental status grossly normal Skin no rashes or lesions noted and no wounds MDM MDM MDM Narrative Medical decision making narrative: IV line established on arrival. Patient placed on a telemetry monitor. EKG obtained showed a sinus rhythm with a ventricular rate of 66 bpm with no evidence of hyperkalemic changes. Patient was noted to have a potassium of 5.0. He did have some chronic renal insufficiency and an elevated glucose which is chronic. At this point no further treatments indicated. Patient will follow up with his primary care physician 3 to 5 days. Lab Data Attestation: I reviewed the patient's lab results. Labs: Laboratory Results - last 24 hr 11/21/21 11/21/21 12:40 12:40 WBC 4.7 RBC 2.87 L Hgb 9.1 L Hct 25.4 L MCV 88.5 MCH 31.7 MCHC 35.8 RDW Std Deviation 41.5 RDW Coeff of Ever 12.8 Plt Count 196 MPV 9.8 Immature Gran % (Auto) 0.900 Neut % (Auto) 54.8 Lymph % (Auto) 35.8 [place] % (Auto) 6.2 Eos % (Auto) 1.7 Baso % (Auto) 0.6 Absolute Neuts (auto) 2.6 Absolute Lymphs (auto) 1.67 Nucleated RBC % 0 Sodium 131 L Potassium 5.0 Chloride 104 Carbon Dioxide 20.0 L Anion Gap 7 BUN 43 H Creatinine 1.66 H Estim Creat Clear Calc 49.79 Est GFR (MDRD) Af Amer 56 L Est GFR (MDRD) Non-Af 46 L BUN/Creatinine Ratio 25.9 H Glucose 322 H Calcium 8.2 L EKG Initial EKG: Attestation: I personally reviewed and interpreted this EKG as follows: Comments: Sinus rhythm with a rate of 66 bpm with no peak T waves or hyperkalemic changes Discharge Plan Triage Chief Complaint: Abn Labs ED Provider: Tiffani Frank Dx/Rx/DC Orders Clinical Impression: Hx of hyperkalemia Instructions: ED Hyperkalemia Prescriptions: No Action lisinopril 40 mg tablet 40 mg PO DAILY RF: 0 testosterone cypionate 200 mg/mL kit 200 mg IM Q2W RF: 0 Basaglar KwikPen U-100 Insulin 100 unit/mL (3 mL) insulin pen 25 unit subcut .QAM & HS RF: 0 insulin lispro [Admelog SoloStar U-100 Insulin] 100 unit/mL insulin pen 18 unit subcut .QID RF: 0 omeprazole 20 mg capsule,delayed release(DR/EC) 20 mg PO DAILY RF: 0 carbamazepine 200 mg tablet 600 mg PO BID Qty: 180 RF: 5 cholecalciferol (vitamin D3) 1,000 UNIT capsule 1,000 unit PO DAILY RF: 0 atenolol 50 mg tablet 50 mg PO BID RF: 0 sertraline 100 MG tablet 100 mg PO DAILY RF: 0 multivitamin with folic acid 1 TABLET tablet 1 tab PO DAILY RF: 0 fenofibrate nanocrystallized 145 MG tablet 145 mg PO DAILY RF: 0 fish oil-dha-epa 1 EACH capsule 1 each PO DAILY RF: 0 aripiprazole 2 mg tablet 2 mg PO DAILY RF: 0 cyanocobalamin (vitamin B-12) 500 MCG tablet 500 mcg PO DAILY@0800 RF: 0 rosuvastatin 40 MG tablet 40 mg PO DAILY RF: 0 Primary Care Provider: Dutch Zhong Referrals: Dutch Zhong MD [Primary Care Provider] - 3-5 Days Disposition Disposition: Home, Self Care
--- NOTE | 2021-11-21 12:17 | EKG12_ITS ---
Test Reason : Blood Pressure : / mmHG Vent. Rate : 066 BPM Atrial Rate : 066 BPM P-R Int : 200 ms QRS Dur : 110 ms QT Int : 394 ms P-R-T Axes : 041 010 033 degrees QTc Int : 413 ms Normal sinus rhythm Normal ECG Confirmed by SARAH GARCIA, IVETTE ([id number]), website/blog editor JAYCOB PENDLETON ([id number]) on 11/23/2021 10:35:36 AM Referred By: JEANNE Confirmed By:IVETTE SMITH MD
[2021-11-21 12:43] VITALS: BP 147/83; PULSE 65
[2021-11-21] MEDS: 0.9% Normal Saline 1,000 ML 150 ML IV (12:47)
[2021-11-21 12:52] LABS: Absolute Lymphocyte Count 1.67 X10^3/uL (0.83-4.51); Absolute Neutrophil Count 2.6 X10^3/uL (2.0-7.7); Basophil# 0.03 X10^3/uL; Basophil% 0.6 % (0-1); Eosinophil# 0.08 X10^3/uL; Eosinophils% 1.7 % (0-5); Hematocrit 25.4 % (40-54); Hemoglobin 9.1 g/dL (13.0-16.5); Lymphocyte # 1.67 X10^3/ul (0.83-4.51); Lymphocyte % 35.8 % (19-41); Mean Corp Hgb Conc 35.8 g/dL (32-36); Mean Corpuscular Hgb 31.7 pg (27.0-32.0); Mean Corpuscular Volume 88.5 fL (80-94); Mean Platelet Vol. 9.8 fl (6.2-12.0); Monocyte# 0.29 X10^3/uL; Monocyte% 6.2 % (0-10); NRBC Flagged by Analyzer 0 % (0-5); Neutrophil # 2.56 X10^3/uL (2.7-7.7); Neutrophil % 54.8 % (47-70); Platelet Count 196 K/mm3 (150-450); RBC Distribution Width CV 12.8 % (11.6-14.6); RBC Distribution Width SD 41.5 fl (35.1-43.9); Red Blood Count 2.87 M/mm3 (4.6-6.2); White Blood Count 4.7 K/mm3 (4.4-11.0)
[2021-11-21 13:05] LABS: Anion Gap 7 (5-15); BUN 43 mg/dL (7-18); BUN/Creat Ratio 25.9 RATIO (10-20); Calcium,Total 8.2 mg/dL (8.5-10.1); Chloride 104 mmol/L (98-107); Creatinine, Serum 1.66 mg/dL (0.70-1.30); EST Glomerular Filtration Rate 46 mL/min (>60); Est Glom Filt Rate - Afr Amer 56 mL/min (>60); Estimated Creatinine Clearance 49.79 ml/min; Glucose 322 mg/dL (74-106); Sodium Level 131 mmol/L (136-145)
== END 2021-11-21 14:26 | disposition home or self-care (01) ==
PROVIDERS: Emergency Provider Emergency Medicine; PCP Family Medicine; Visit Provider Emergency Medicine
DX: E87.5 Hyperkalemia (principal); E11.22 Type 2 diabetes mellitus with diabetic chronic kidney disease; E11.40 Type 2 diabetes mellitus with diabetic neuropathy, unspecified; G40.909 Epilepsy, unspecified, not intractable, without status epilepticus; Z79.4 Long term (current) use of insulin; N18.9 Chronic kidney disease, unspecified; E78.00 Pure hypercholesterolemia, unspecified; Z87.891 Personal history of nicotine dependence; I12.9 Hypertensive chronic kidney disease with stage 1 through stage 4 chronic kidney disease, or unspecified chronic kidney disease; F32.A Depression, unspecified; K21.9 Gastro-esophageal reflux disease without esophagitis; Z87.19 Personal history of other diseases of the digestive system; E66.9 Obesity, unspecified; G50.0 Trigeminal neuralgia; Z79.899 Other long term (current) drug therapy; Z68.34 Body mass index [BMI] 34.0-34.9, adult
CPT/HCPCS: 36591; 80048; 85025; 93005; 96360; 96361; 99285; J7030; A4216

== ENCOUNTER 2021-11-27 12:09 | Emergency (ER) | payer MEDICAID, SELFPAY ==
[2021-11-27 12:10] VITALS: BP 153/81; PULSE 82; RESP 18; TEMP 36.2; O2SAT 98; BMI 34.0
--- NOTE | 2021-11-27 12:13 | VDLE_ITS ---
Reason For Study: Swelling Procedure LEFT This is a venous duplex using B-mode, color GSV is normal. flow and spectral Doppler. CFV is compressible, spontaneous, phasic, Exam performed portable in ED. competent, and demonstrates normal A preliminary report was called and/or faxed augmentation. to Dr. Frank. FV is compressible, spontaneous, phasic, competent and demonstrates normal augmentation. POP V is compressible, spontaneous, phasic, competent and demonstrates normal augmentation. T/P Trunk is compressible. PTV is compressible. LT PerV is compressible. VL/Venous Duplex US, Unilateral Interpretation Summary Deep veins of the left lower extremity are patent and compressible segmentally. There is no evidence of left lower extremity deep vein thrombosis. Valvular competence appears intac t within the proximal deep venous system on the left . The left great saphenous vein appears patent a nd compressible segmentally. Ordering Physician: Tiffani Frank Referring Physician: Dutch Zhong Performed By: Tabatha Cadet, SCOTCS, RVT
--- NOTE | 2021-11-27 12:22 | ED.VIS.LOWEX ---
HPI History of Present Illness Chief Complaint: Lower Extremity Injury Detail of Chief Complaint: Left leg swelling that was noted last evening Informant: patient Narrative Narrative: Patient presents with left leg swelling and discomfort to his calf that he noticed last evening. He denies any trauma. No history of PE or DVT. Patient does not have any chest pain or shortness of breath. He did have recent travel to [place] within the last week. Patient not on blood thinners. Primary care physician advised him come to the ER and get evaluated for DVT. [facility] Medical History (Updated 11/27/21 @ 14:[address] Tiffani Frank, DO) Alcohol abuse Anemia Anemia Asthma Cancer Carpal tunnel syndrome Depressive disorder Diabetes type 2, controlled GERD (gastroesophageal reflux disease) Hepatitis C High cholesterol History of alcohol abuse History of colon cancer HTN (hypertension) Hypoglycemia Neuropathy Obesity Pancreatitis portacath placement Seizure disorder Trigeminal nerve disorder Home Medications cholecalciferol (vitamin D3) 1,000 unit PO DAILY 10/10/13 [History Last Taken 11/13/15] sertraline 100 mg PO DAILY 07/18/14 [History Last Taken 11/13/15] multivitamin with folic acid 1 tab PO DAILY 10/21/14 [History Last Taken 11/13/15] cyanocobalamin (vitamin B-12) 500 mcg PO DAILY@0800 11/24/16 [History Last Taken Unknown] rosuvastatin 40 mg PO DAILY 11/24/16 [History Last Taken Unknown] atenolol 50 mg tablet 50 mg PO BID tab 02/14/18 [History Last Taken Unknown] fenofibrate nanocrystallized 145 mg PO DAILY 11/14/20 [History Last Taken Unknown] fish oil-dha-epa 1 each PO DAILY 11/14/20 [History Last Taken Unknown] aripiprazole 2 mg PO DAILY 12/24/20 [History Last Taken Unknown] insulin glargine 100 unit/mL (3 mL) subcutaneous pen 25 unit SUBCUT .QAM & HS ml 05/20/21 [History Last Taken Unknown] insulin lispro 100 unit/mL subcutaneous pen 18 unit SUBCUT .QID ml 05/20/21 [History Last Taken Unknown] lisinopril 40 mg tablet 40 mg PO DAILY 05/20/21 [History Last Taken Unknown] testosterone cypionate 200 mg/mL intramuscular kit 200 mg IM Q2W 05/20/21 [History Last Taken Unknown] carbamazepine 200 mg tablet 600 mg PO BID #180 tab 08/10/21 [Rx Last Taken Unknown] omeprazole 20 mg capsule,delayed release 20 mg PO DAILY cap 08/10/21 [History Last Taken Unknown] amlodipine 5 mg PO DAILY 11/27/21 [History Last Taken Unknown] doxazosin 1 mg PO DAILY 11/27/21 [History Last Taken Unknown] gabapentin 100 mg PO TID 11/27/21 [History Last Taken Unknown] Allergy/AdvReac Type Severity Reaction Status Date / Time erythromycin base AdvReac Severe Hives Verified 11/27/21 12:11 loratadine [From Claritin] AdvReac Severe Rash Verified 11/27/21 12:11 Family History Grandmother Cervical cancer Diabetes Hypertension Trigeminal neuralgia Mother Uterine cancer Arthritis Diabetes Hypertension Grandfather Heart disease Arthritis Diabetes Hypertension Unknown Diabetes Arthritis Father Arthritis Diabetes Hypertension Sister Diabetes Hypertension Uncle CVA (cerebral vascular accident) Aunt Cerebral aneurysm Surgical History H/O left hemicolectomy Hx of appendectomy Social History Smoking Status: Former smoker Tobacco: How many years used: 20 how long ago did patient quit smoking: quit 2003 second hand exposure: No alcohol intake: former details: quit 2003 substance use type: former substance user Date of last use: Used Marijuana since he was a teenager ROS ROS ED Constitutional Constitutional ED: Reports systems reviewed and no addt'l complaints, except as documented; Denies body ache(s), change in weight or chills Eyes Eyes: Denies acute decrease in peripheral vision, change in vision, double vision or loss of vision ENT ENT ED: Reports none; Denies ear pain, lip swelling, loss taste/smell, neck pain, otalgia or sore throat Cardiovascular Cardiovascular: Reports none; Denies abdominal pain, chest pain with activity, leg edema, lightheadedness, palpitations, rapid heart rate or syncope Respiratory/Chest Respiratory/Chest: Reports none; Denies change in mental status, dry cough, dyspnea, hemoptysis, shortness of breath at rest or shortness of breath with exertion Gastrointestinal Gastrointestinal: Reports none; Denies abdominal pain, change in stool character, diarrhea, hematemesis, hematochezia, melena, rectal bleeding or vomiting Genitourinary Genitourinary ED: Reports none; Denies abdominal discomfort, anuria, dysuria, genital pain or polyuria Musculoskeletal Musculoskeletal: Reports none and other Details: Left leg pain and swelling ; Denies arthralgias, back pain, difficulty walking, extremity pain, muscle weakness or myalgias Integumentary Reports none; Denies abscess or rash Neurologic Neurologic: Reports none; Denies abnormal gait, confusion, focal weakness, frequent falls, headache(s), loss of vision, numbness, paresthesias, radicular pain, vertigo or weakness Psychiatric Psychiatric: Reports systems reviewed and no addt'l complaints, except as documented and none; Denies behavioral changes, confusion, difficulty concentrating, hallucinations, suicidal ideation, tactile hallucinations or visual hallucinations Endocrine Endocrinology: Denies none, cold intolerance, excessive sweating, fatigue or heat intolerance Hematologic/Lymphatic Hematologic/Lymphatic: Reports none; Denies anemia, easy bleeding or easy bruising Allergic/Immunologic Allergic/Immunologic ED: Denies as per HPI, none, lip swelling, mouth swelling, throat swelling, tongue swelling or hives EXAM Physical Exam Const Vital Signs: 11/27/21 12:10 Temperature 97.1 F L Temperature Source Temporal Pulse Rate 82 Respiratory Rate 18 Blood Pressure 153/81 H Blood Pressure Mean 105 Pulse Ox 98 Oxygen Delivery Method Room Air Positive well nourished and well developed General Appearance ED: well developed and NAD HEENT Reports TM's clear and moist mucous membranes normocephalic and atraumatic; Negative for trauma or tenderness Tympanic Membrane ED: Yes TM's clear Eyes PERRL and EOMs intact bilaterally General Eye ED: Negative for pale conjunctiva or scleral icterus Neck no lymphadenopathy, supple and no JVD General: Negative for tenderness Chest Wall inspection of chest normal and palpation of chest normal Chest: Negative for tenderness Resp normal respiratory effort and clear to auscultation bilaterally Effort and Inspection: Negative for respiratory distress or pain with movement Auscultation: Negative for rhonchi, wheezes or diminished lung sounds Cardio regular rate, regular rhythm, S1 normal heart sound, S2 normal heart sound and no murmurs Peripheral Pulses: pulses 2+ throughout GI normal to inspection, nondistended, normoactive bowel sounds, soft to palpation, non-tender, non-distended and no masses Back/Spine no CVA tenderness and no thoracic nor lumbar tenderness Extremity Extremity Narrative: Left lower extremity-I do not appreciate significant edema. Patient does have tenderness over the left calf. No ropes or cords palpated. He is neurovascular intact distally. General Extremety ED: Negative for edema General Extremity: Negative for edema Neuro oriented x3, CN's II-XII intact bilaterally, no sensory deficits noted and gait normal Sensorium / Orientation: awake, alert, oriented to person, oriented to place and oriented to time Motor Exam: strength 5/5 throughout and strength abnormal Psych mental status grossly normal Skin no rashes or lesions noted and no wounds MDM MDM MDM Narrative Medical decision making narrative: Patient had a venous Doppler of the left lower extremity which was negative for DVT. After discussing results with patient he tells me that he was recently started on some new medications 1 of which is amlodipine and he has been on it for about 3 weeks. At this point it is possible the amlodipine may be contributing to the lower extremity edema. Patient will be discharged home and advised to follow-up with his primary care physician. Discharge Plan Triage Chief Complaint: Lower Extremity Injury ED Provider: Tiffani Frank Dx/Rx/DC Orders Clinical Impression: Leg edema, left Instructions: ED Peripheral Edema, Unilateral Prescriptions: No Action lisinopril 40 mg tablet 40 mg PO DAILY RF: 0 testosterone cypionate 200 mg/mL kit 200 mg IM Q2W RF: 0 Basaglar KwikPen U-100 Insulin 100 unit/mL (3 mL) insulin pen 25 unit subcut .QAM & HS RF: 0 insulin lispro [Admelog SoloStar U-100 Insulin] 100 unit/mL insulin pen 18 unit subcut .QID RF: 0 omeprazole 20 mg capsule,delayed release(DR/EC) 20 mg PO DAILY RF: 0 carbamazepine 200 mg tablet 600 mg PO BID Qty: 180 RF: 5 cholecalciferol (vitamin D3) 1,000 UNIT capsule 1,000 unit PO DAILY RF: 0 atenolol 50 mg tablet 50 mg PO BID RF: 0 sertraline 100 MG tablet 100 mg PO DAILY RF: 0 multivitamin with folic acid 1 TABLET tablet 1 tab PO DAILY RF: 0 fenofibrate nanocrystallized 145 MG tablet 145 mg PO DAILY RF: 0 fish oil-dha-epa 1 EACH capsule 1 each PO DAILY RF: 0 aripiprazole 2 mg tablet 2 mg PO DAILY RF: 0 doxazosin 1 mg Tablet 1 mg PO DAILY RF: 0 amlodipine 5 mg Tablet 5 mg PO DAILY RF: 0 gabapentin 100 mg Tablet 100 mg PO TID RF: 0 cyanocobalamin (vitamin B-12) 500 MCG tablet 500 mcg PO DAILY@0800 RF: 0 rosuvastatin 40 MG tablet 40 mg PO DAILY RF: 0 Primary Care Provider: Dutch Zhong Referrals: Dutch Zhong MD [Primary Care Provider] - 3-5 Days Disposition Disposition: Home, Self Care
[2021-11-27 14:11] VITALS: BP 124/69; PULSE 62; RESP 15; O2SAT 98
== END 2021-11-27 14:12 | disposition home or self-care (01) ==
PROVIDERS: Emergency Provider Emergency Medicine; PCP Family Medicine; Visit Provider Emergency Medicine
DX: R60.0 Localized edema (principal); E11.40 Type 2 diabetes mellitus with diabetic neuropathy, unspecified; G40.909 Epilepsy, unspecified, not intractable, without status epilepticus; Z79.4 Long term (current) use of insulin; E78.00 Pure hypercholesterolemia, unspecified; Z87.891 Personal history of nicotine dependence; I10 Essential (primary) hypertension; J45.909 Unspecified asthma, uncomplicated; Z85.038 Personal history of other malignant neoplasm of large intestine; E66.9 Obesity, unspecified; Z87.19 Personal history of other diseases of the digestive system; G50.9 Disorder of trigeminal nerve, unspecified; K21.9 Gastro-esophageal reflux disease without esophagitis; Z79.899 Other long term (current) drug therapy; Z68.34 Body mass index [BMI] 34.0-34.9, adult
CPT/HCPCS: 93971; 99282

== ENCOUNTER 2021-11-29 14:09 | Emergency (ER) | payer MEDICAID, SELFPAY ==
[2021-11-29 14:10] VITALS: BP 140/78; PULSE 73; RESP 15; TEMP 36; O2SAT 100; BMI 34.0
[2021-11-29 14:13] VITALS: BP 140/78; PULSE 73; RESP 15; TEMP 36; O2SAT 100
--- NOTE | 2021-11-29 15:07 | VDLE_ITS ---
Reason For Study: swelling RIGHT LEFT GSV is normal. GSV is normal. CFV is compressible, spontaneous, phasic, CFV is compressible, spontaneous, phasic, competent and demonstrates normal competent, and demonstrates normal augmentation. augmentation. FV is compressible, spontaneous, phasic, FV is compressible, spontaneous, phasic, competent and demonstrates normal competent and demonstrates normal augmentation. augmentation. POP V is compressible, spontaneous, phasic, POP V is compressible, spontaneous, phasic, competent and demonstrates normal competent and demonstrates normal augmentation. augmentation. T/P Trunk is compressible. T/P Trunk is compressible. PTV is compressible. PTV is compressible. RT PerV is compressible. LT PerV is compressible. Procedure This is a venous duplex using B-mode, color flow and spectral Doppler. A preliminary report was called and/or faxed to DR. MARTINEZ as she took over for Dr. Dockery. VL/Venous Duplex US - Cliff Extrem Interpretation Summary Deep veins of the lower extremities are bilaterally patent and compressible seg mentally. There is no evidence of deep vein thrombosis on either side. Valvular competence appears in tact within the proximal deep venous systems bilaterally. The great saphenous veins appear bila terally patent and compressible segmentally. Ordering Physician: Cash Dockery Referring Physician: Dutch Zhong Performed By: Jane Nuñez, RDCS, RVT
--- NOTE | 2021-11-29 15:52 | EDS_ITS ---
HPI History of Present Illness Chief Complaint: Lower Extremity Injury Informant: patient Onset/Context/Timing Onset: Days (3 days) Context: Gradual Onset Current Severity: Moderate Maximum Severity: Moderate Narrative Narrative: Patient presents secondary to continued left leg pain and swelling. Patient was seen in the ER on Monday, the day of symptom onset. He feels that his left leg is swollen and painful. He did have a recent travel and a family history of blood clots. He had an ultrasound performed on Monday that was negative. There was concerned that his swelling may be secondary to his amlodipine. This dose was decreased but he continues to have further symptoms. He is scheduled to see his PCP tomorrow. Patient denies chest pain or shortness of breath. [facility] Medical History (Updated 11/29/21 @ 17:[address] So Donaldson MD) Alcohol abuse Anemia Asthma Cancer Carpal tunnel syndrome Depressive disorder Diabetes type 2, controlled GERD (gastroesophageal reflux disease) Hepatitis C High cholesterol History of alcohol abuse History of colon cancer HTN (hypertension) Hypoglycemia Neuropathy Obesity Pancreatitis portacath placement Seizure disorder Trigeminal nerve disorder Home Medications cholecalciferol (vitamin D3) 1,000 unit PO DAILY 10/10/13 [History Last Taken 11/13/15] sertraline 100 mg PO DAILY 07/18/14 [History Last Taken 11/13/15] multivitamin with folic acid 1 tab PO DAILY 10/21/14 [History Last Taken 11/13/15] cyanocobalamin (vitamin B-12) 500 mcg PO DAILY@0800 11/24/16 [History Last Taken Unknown] rosuvastatin 40 mg PO DAILY 11/24/16 [History Last Taken Unknown] atenolol 50 mg tablet 50 mg PO BID tab 02/14/18 [History Last Taken Unknown] fenofibrate nanocrystallized 145 mg PO DAILY 11/14/20 [History Last Taken Unknown] fish oil-dha-epa 1 each PO DAILY 11/14/20 [History Last Taken Unknown] aripiprazole 2 mg PO DAILY 12/24/20 [History Last Taken Unknown] insulin glargine 100 unit/mL (3 mL) subcutaneous pen 25 unit SUBCUT .QAM & HS ml 05/20/21 [History Last Taken Unknown] insulin lispro 100 unit/mL subcutaneous pen 18 unit SUBCUT .QID ml 05/20/21 [History Last Taken Unknown] lisinopril 40 mg tablet 40 mg PO DAILY 05/20/21 [History Last Taken Unknown] testosterone cypionate 200 mg/mL intramuscular kit 200 mg IM Q2W 05/20/21 [History Last Taken Unknown] carbamazepine 200 mg tablet 600 mg PO BID #180 tab 08/10/21 [Rx Last Taken Unknown] omeprazole 20 mg capsule,delayed release 20 mg PO DAILY cap 08/10/21 [History Last Taken Unknown] amlodipine 5 mg PO DAILY 11/27/21 [History Last Taken Unknown] doxazosin 1 mg PO DAILY 11/27/21 [History Last Taken Unknown] gabapentin 100 mg PO TID 11/27/21 [History Last Taken Unknown] Allergy/AdvReac Type Severity Reaction Status Date / Time erythromycin base AdvReac Severe Hives Verified 11/29/21 14:12 loratadine [From Claritin] AdvReac Severe Rash Verified 11/29/21 14:12 Family History Grandmother Cervical cancer Diabetes Hypertension Trigeminal neuralgia Mother Uterine cancer Arthritis Diabetes Hypertension Grandfather Heart disease Arthritis Diabetes Hypertension Unknown Diabetes Arthritis Father Arthritis Diabetes Hypertension Sister Diabetes Hypertension Uncle CVA (cerebral vascular accident) Aunt Cerebral aneurysm Surgical History H/O left hemicolectomy Hx of appendectomy Social History Smoking Status: Former smoker Tobacco: How many years used: 20 how long ago did patient quit smoking: quit 2003 second hand exposure: No alcohol intake: former details: quit 2003 substance use type: former substance user Date of last use: Used Marijuana since he was a teenager ROS ROS ED Constitutional Constitutional ED: Denies chills or fever(s) Eyes Eyes: Denies change in vision ENT ENT ED: Denies sore throat Cardiovascular Cardiovascular: Denies chest pain Respiratory/Chest Respiratory/Chest: Denies cough or dyspnea Gastrointestinal Gastrointestinal: Denies abdominal pain, nausea or vomiting Genitourinary Genitourinary ED: Denies dysuria Musculoskeletal Musculoskeletal: Reports arthralgias; Denies back pain Integumentary Denies rash Neurologic Neurologic: Denies headache(s), paresthesias or weakness Allergic/Immunologic Allergic/Immunologic ED: Denies urticaria EXAM Physical Exam Const Vital Signs: 11/29/21 14:10 11/29/21 14:13 Temperature 96.8 F L 96.8 F L Temperature Source Temporal Temporal Pulse Rate 73 73 Respiratory Rate 15 15 Blood Pressure 140/78 H 140/78 H Blood Pressure Mean 98 98 Pulse Ox 100 100 Oxygen Delivery Method Room Air Room Air Positive well nourished and well developed General Appearance ED: well developed HEENT Reports moist mucous membranes Eyes PERRL and EOMs intact bilaterally Neck supple Chest Wall inspection of chest normal and palpation of chest normal Resp normal respiratory effort and clear to auscultation bilaterally Cardio regular rate and regular rhythm GI normal to inspection, nondistended, normoactive bowel sounds and non-tender Palpation: soft Extremity Extremity Narrative: 2+ edema left lower extremity. No erythema or open wounds. Strong distal pulses. Neuro oriented x3 Sensorium / Orientation: alert Psych mental status grossly normal Skin no rashes or lesions noted MDM MDM MDM Narrative Medical decision making narrative: CBC and chemistry studies obtained. Repeat ultrasound of the left lower extremity ordered. Lab Data Attestation: I reviewed the patient's lab results. Labs: Laboratory Results - last 24 hr 11/29/21 11/29/21 15:50 15:50 WBC 4.5 RBC 2.76 L Hgb 8.4 L Hct 24.8 L MCV 89.9 MCH 30.4 MCHC 33.9 RDW Std Deviation 42.0 RDW Coeff of Ever 12.9 Plt Count 179 MPV 10.1 Immature Gran % (Auto) 0.700 Neut % (Auto) 58.9 Lymph % (Auto) 31.6 [place] % (Auto) 6.6 Eos % (Auto) 1.8 Baso % (Auto) 0.4 Absolute Neuts (auto) 2.7 Absolute Lymphs (auto) 1.43 Nucleated RBC % 0 Sodium 135 L Potassium 5.3 H Chloride 107 Carbon Dioxide 23.0 Anion Gap 5 BUN 27 H Creatinine 1.59 H Estim Creat Clear Calc 51.98 Est GFR (MDRD) Af Amer 59 L Est GFR (MDRD) Non-Af 49 L BUN/Creatinine Ratio 17.0 Glucose 225 H Calcium 8.6 Treatment and Re-Evaluation Narrative: Patient's lab work does reveal anemia with a hemoglobin of 8.4. He states he was 9.0 last obtained at [facility]. Chemistry studies significant for a slightly high potassium at 5.3. Creatinine is 1.59 which appears to be his baseline. Venous ultrasound shows no clot. David wrap was applied to the left lower extremity. Patient will hold his amlodipine tonight. He is scheduled to see his doctor tomorrow afternoon. A copy of the patient's lab work from today is printed and sent with him to review at that visit. Discharge Plan Triage Chief Complaint: Lower Extremity Injury ED Provider: So Donaldson Dx/Rx/DC Orders Clinical Impression: Edema of left lower leg Instructions: ED Peripheral Edema, Unilateral Prescriptions: No Action lisinopril 40 mg tablet 40 mg PO DAILY RF: 0 testosterone cypionate 200 mg/mL kit 200 mg IM Q2W RF: 0 Basaglar KwikPen U-100 Insulin 100 unit/mL (3 mL) insulin pen 25 unit subcut .QAM & HS RF: 0 insulin lispro [Admelog SoloStar U-100 Insulin] 100 unit/mL insulin pen 18 unit subcut .QID RF: 0 omeprazole 20 mg capsule,delayed release(DR/EC) 20 mg PO DAILY RF: 0 carbamazepine 200 mg tablet 600 mg PO BID Qty: 180 RF: 5 cholecalciferol (vitamin D3) 1,000 UNIT capsule 1,000 unit PO DAILY RF: 0 atenolol 50 mg tablet 50 mg PO BID RF: 0 sertraline 100 MG tablet 100 mg PO DAILY RF: 0 multivitamin with folic acid 1 TABLET tablet 1 tab PO DAILY RF: 0 fenofibrate nanocrystallized 145 MG tablet 145 mg PO DAILY RF: 0 fish oil-dha-epa 1 EACH capsule 1 each PO DAILY RF: 0 aripiprazole 2 mg tablet 2 mg PO DAILY RF: 0 doxazosin 1 mg Tablet 1 mg PO DAILY RF: 0 amlodipine 5 mg Tablet 5 mg PO DAILY RF: 0 gabapentin 100 mg Tablet 100 mg PO TID RF: 0 cyanocobalamin (vitamin B-12) 500 MCG tablet 500 mcg PO DAILY@0800 RF: 0 rosuvastatin 40 MG tablet 40 mg PO DAILY RF: 0 Primary Care Provider: Dutch Zhong Referrals: Dutch Zhong MD [Primary Care Provider] - [facility] appointment Disposition Disposition: Home, Self Care
[2021-11-29 16:00] LABS: Absolute Lymphocyte Count 1.43 X10^3/uL (0.83-4.51); Absolute Neutrophil Count 2.7 X10^3/uL (2.0-7.7); Basophil# 0.02 X10^3/uL; Basophil% 0.4 % (0-1); Eosinophil# 0.08 X10^3/uL; Eosinophils% 1.8 % (0-5); Hematocrit 24.8 % (40-54); Hemoglobin 8.4 g/dL (13.0-16.5); Lymphocyte # 1.43 X10^3/ul (0.83-4.51); Lymphocyte % 31.6 % (19-41); Mean Corp Hgb Conc 33.9 g/dL (32-36); Mean Corpuscular Hgb 30.4 pg (27.0-32.0); Mean Corpuscular Volume 89.9 fL (80-94); Mean Platelet Vol. 10.1 fl (6.2-12.0); Monocyte% 6.6 % (0-10); NRBC Flagged by Analyzer 0 % (0-5); Neutrophil # 2.66 X10^3/uL (2.7-7.7); Neutrophil % 58.9 % (47-70); Platelet Count 179 K/mm3 (150-450); RBC Distribution Width CV 12.9 % (11.6-14.6); Red Blood Count 2.76 M/mm3 (4.6-6.2); White Blood Count 4.5 K/mm3 (4.4-11.0)
[2021-11-29 16:16] LABS: Anion Gap 5 (5-15); BUN 27 mg/dL (7-18); Calcium,Total 8.6 mg/dL (8.5-10.1); Chloride 107 mmol/L (98-107); Creatinine, Serum 1.59 mg/dL (0.70-1.30); EST Glomerular Filtration Rate 49 mL/min (>60); Est Glom Filt Rate - Afr Amer 59 mL/min (>60); Estimated Creatinine Clearance 51.98 ml/min; Glucose 225 mg/dL (74-106); Potassium 5.3 mmol/L (3.5-5.1); Sodium Level 135 mmol/L (136-145)
--- NOTE | 2021-11-29 17:12 | ED.RN ---
Pt left chest port de-accessed, flushed with 10 ml NS and 5 ml of heparin prior to taking needle out.
[2021-11-29 17:14] VITALS: BP 149/84; PULSE 69; RESP 18; O2SAT 100
== END 2021-11-29 17:15 | disposition home or self-care (01) ==
PROVIDERS: Emergency Medicine; Emergency Provider Emergency Medicine; PCP Family Medicine; Visit Provider Emergency Medicine
DX: R60.0 Localized edema (principal); E11.40 Type 2 diabetes mellitus with diabetic neuropathy, unspecified; G40.909 Epilepsy, unspecified, not intractable, without status epilepticus; Z79.4 Long term (current) use of insulin; M79.605 Pain in left leg; E78.00 Pure hypercholesterolemia, unspecified; Z87.891 Personal history of nicotine dependence; I10 Essential (primary) hypertension; Z87.19 Personal history of other diseases of the digestive system; E66.9 Obesity, unspecified; G50.0 Trigeminal neuralgia; F32.A Depression, unspecified; J45.909 Unspecified asthma, uncomplicated; Z85.038 Personal history of other malignant neoplasm of large intestine; K21.9 Gastro-esophageal reflux disease without esophagitis; Z79.899 Other long term (current) drug therapy; Z68.34 Body mass index [BMI] 34.0-34.9, adult
CPT/HCPCS: 36591; 80048; 85025; 93970; 99282; A4216

== ENCOUNTER 2022-01-26 03:10 | Emergency (ER) | payer MEDICAID, SELFPAY ==
[2022-01-26 03:11] VITALS: BP 173/78; PULSE 85; RESP 17; TEMP 36.8; O2SAT 99; BMI 31.9
--- NOTE | 2022-01-26 03:55 | EDS_ITS ---
HPI History of Present Illness Chief Complaint: Other, Pain/Inj Informant: patient Narrative Narrative: Patient is a 51-year-old male with history of diabetes mellitus presenting with 2 weeks of left fourth toe pain. Patient states has had redness and pain of his left fourth toe that is been persistent for the past 2 weeks. Today he took off his compression stockings and noticed redness on the top of his foot. Denies any fever or chills. States it is painful to walk. Notes that he had callus removed all along the lateral aspect of the left great toe by his contract modeler prior to this. Denies any systemic symptoms. Thought maybe it could be gout because his grandfather had gout around the same age. Patient himself denies any history of gout. No other complaints at this time. [facility] Medical History Alcohol abuse Anemia Asthma Cancer Carpal tunnel syndrome Depressive disorder Diabetes type 2, controlled GERD (gastroesophageal reflux disease) Hepatitis C High cholesterol History of alcohol abuse History of colon cancer HTN (hypertension) Hypoglycemia Neuropathy Obesity Pancreatitis portacath placement Seizure disorder Trigeminal nerve disorder Home Medications cholecalciferol (vitamin D3) 1,000 unit PO DAILY 10/10/13 [History Last Taken 11/13/15] sertraline 100 mg PO DAILY 07/18/14 [History Last Taken 11/13/15] multivitamin with folic acid 1 tab PO DAILY 10/21/14 [History Last Taken 11/13/15] cyanocobalamin (vitamin B-12) 500 mcg PO DAILY@0800 11/24/16 [History Last Taken Unknown] rosuvastatin 40 mg PO DAILY 11/24/16 [History Last Taken Unknown] atenolol 50 mg tablet 50 mg PO BID tab 02/14/18 [History Last Taken Unknown] fish oil-dha-epa 1 each PO DAILY 11/14/20 [History Last Taken Unknown] aripiprazole [Abilify] 2 mg PO DAILY 12/24/20 [History Last Taken Unknown] insulin glargine 100 unit/mL (3 mL) subcutaneous pen 25 unit SUBCUT .QAM & HS m l 05/20/21 [History Last Taken Unknown] insulin lispro 100 unit/mL subcutaneous pen 18 unit SUBCUT .QID ml 05/20/21 [History Last Taken Unknown] lisinopril 40 mg tablet 40 mg PO DAILY 05/20/21 [History Last Taken Unknown] carbamazepine 200 mg tablet 600 mg PO BID #180 tab 08/10/21 [Rx Last Taken Unknown] omeprazole 20 mg capsule,delayed release 20 mg PO DAILY cap 08/10/21 [History Last Taken Unknown] gabapentin 100 mg PO TID 11/27/21 [History Last Taken Unknown] cephalexin 500 mg PO Q6 #40 cap 01/26/22 [Rx Last Taken Unknown] hydrocodone-acetaminophen 1 tab PO Q6H PRN 3 Days #12 tab 01/26/22 [Rx Last Taken Unknown] Allergy/AdvReac Type Severity Reaction Status Date / Time erythromycin base AdvReac Severe Hives Verified 01/26/22 03:13 loratadine [From Claritin] AdvReac Severe Rash Verified 01/26/22 03:13 Family History Grandmother Cervical cancer Diabetes Hypertension Trigeminal neuralgia Mother Uterine cancer Arthritis Diabetes Hypertension Grandfather Heart disease Arthritis Diabetes Hypertension Unknown Diabetes Arthritis Father Arthritis Diabetes Hypertension Sister Diabetes Hypertension Uncle CVA (cerebral vascular accident) Aunt Cerebral aneurysm Surgical History H/O left hemicolectomy Hx of appendectomy Social History Smoking Status: Former smoker Tobacco: How many years used: 20 how long ago did patient quit smoking: quit 2003 second hand exposure: No alcohol intake: former details: quit 2003 substance use type: former substance user Date of last use: Used Marijuana since he was a teenager ROS ROS ED Constitutional Constitutional ED: Denies chills or fever(s) Eyes Eyes: Denies change in vision ENT ENT ED: Denies rhinorrhea Cardiovascular Cardiovascular: Denies chest pain Respiratory/Chest Respiratory/Chest: Denies dyspnea Gastrointestinal Gastrointestinal: Denies abdominal pain, nausea or vomiting Genitourinary Genitourinary ED: Denies dysuria Musculoskeletal Musculoskeletal: Reports other Details: left foot pain Integumentary Reports rash and other Details: left 4th toe Neurologic Neurologic: Denies headache(s), paresthesias or weakness EXAM Physical Exam Const Vital Signs: 01/26/22 03:11 Temperature 98.2 F Temperature Source Temporal Pulse Rate 85 Respiratory Rate 17 Blood Pressure 173/78 H Blood Pressure Mean 109 Pulse Ox 99 Oxygen Delivery Method Room Air Positive well nourished and well developed General Appearance ED: well developed and NAD HEENT Reports moist mucous membranes Negative for tenderness Eyes PERRL and EOMs intact bilaterally Neck supple and no JVD Chest Wall inspection of chest normal Resp normal respiratory effort and clear to auscultation bilaterally Cardio regular rate, regular rhythm and no murmurs Rate: other Other Details: 1+ DP pulses GI normal to inspection, nondistended, normoactive bowel sounds and non-tender Palpation: soft Extremity Extremity Narrative: Erythema and warmth of the left fourth toe with subtle proximal erythema of the dorsum of the foot. No crepitus. Normal range of motion. Tenderness with movement of the toe. Neuro oriented x3 and CN's II-XII intact bilaterally Sensorium / Orientation: alert Motor Exam: Negative for general weakness Psych mental status grossly normal Skin no rashes or lesions noted Skin Narrative: Erythema and warmth of the left fourth toe with subtle proximal erythema of the dorsum of the foot. Ulcerated/macerated area on the lateral left fourth toe. Slight drainage present. MDM MDM MDM Narrative Medical decision making narrative: Patient evaluated for 2 weeks of left fourth toe pain, redness and now worsening redness. Exam is concerning for cellulitis especially as patient has macerated chronic wound on the side of the toe which could be nidus for infection. Blood cultures are obtained as well as x-ray of the foot and screening labs including CBC and BMP. Patient is chronic anemia which is stable. No leukocytosis. Slight neutrophil predominance. BMP shows CKD which is stable. X-ray interpreted by myself as well as radiology does show fracture of the distal aspect of the proximal phalanx of the fourth toe. Patient now recalls remote injury of hitting his foot on a piece of furniture. This could be the cause of his redness and pain however given the redness on the dorsal aspect of the foot I am still concerned for associated cellulitis. Patient be covered with Keflex. He has outpatient follow-up with his contract modeler tomorrow. He is given a postop shoe as well as a short course of pain medication. Patient verbalized agreement of this plan. Discharged home in stable condition. Patient's port flushes easily but does not draw. Will apply Cathflo to see if it will start drawing prior to discharge. Lab Data Attestation: I reviewed the patient's lab results. Labs: Laboratory Results - last 24 hr 01/26/22 01/26/22 04:08 04:08 WBC 7.9 RBC 2.66 L Hgb 8.3 L Hct 23.1 L MCV 86.8 MCH 31.2 MCHC 35.9 RDW Std Deviation 38.5 RDW Coeff of Ever 12.0 Plt Count 152 MPV 9.6 Immature Gran % (Auto) 0.600 Neut % (Auto) 71.4 H Lymph % (Auto) 18.8 L Tate % (Auto) 7.9 Eos % (Auto) 1.0 Baso % (Auto) 0.3 Absolute Neuts (auto) 5.6 Absolute Lymphs (auto) 1.48 Nucleated RBC % 0 Sodium 135 L Potassium 3.9 Chloride 103 Carbon Dioxide 24.0 Anion Gap 8 BUN 31 H Creatinine 1.71 H Estim Creat Clear Calc 48.33 Est GFR (MDRD) Af Amer 54 L Est GFR (MDRD) Non-Af 45 L BUN/Creatinine Ratio 18.1 Glucose 165 H Calcium 8.1 L Radiography Diagnostic Testing: Clinical Impression(s) from Imaging Studies Foot X-Ray 01/26/22 03:58 IMPRESSION: 1. Fracture distal aspect proximal phalanx of the fourth toe. 2. Soft tissue swelling of the fourth toe. Electronically Signed: Oswald Hamilton MD at 4:40 EDT , Discharge Plan Triage Chief Complaint: Other, Pain/Inj ED Provider: Breanna Friedman Dx/Rx/DC Orders Clinical Impression: Closed fracture of fourth toe of left foot, Cellulitis of fourth toe of left foot, Diabetes type 2, uncontrolled, Anemia Instructions: ED Cellulitis, ED Diabetic Foot Care, ED Fracture, Toe, Closed Prescriptions: New cephalexin 500 mg capsule 500 mg PO Q6 Qty: 40 RF: 0 hydrocodone-acetaminophen 5-325 mg tablet 1 tab PO Q6H PRN (Reason: pain) 3 Days Qty: 12 RF: 0 No Action lisinopril 40 mg tablet 40 mg PO DAILY RF: 0 Basaglar KwikPen U-100 Insulin 100 unit/mL (3 mL) insulin pen 25 unit subcut .QAM & HS RF: 0 insulin lispro [Admelog SoloStar U-100 Insulin] 100 unit/mL insulin pen 18 unit subcut .QID RF: 0 omeprazole 20 mg capsule,delayed release(DR/EC) 20 mg PO DAILY RF: 0 carbamazepine 200 mg tablet 600 mg PO BID Qty: 180 RF: 5 cholecalciferol (vitamin D3) 1,000 UNIT capsule 1,000 unit PO DAILY RF: 0 atenolol 50 mg tablet 50 mg PO BID RF: 0 sertraline 100 MG tablet 100 mg PO DAILY RF: 0 multivitamin with folic acid 1 TABLET tablet 1 tab PO DAILY RF: 0 fish oil-dha-epa 1 EACH capsule 1 each PO DAILY RF: 0 aripiprazole [Abilify] 2 mg tablet 2 mg PO DAILY RF: 0 gabapentin 100 mg Tablet 100 mg PO TID RF: 0 cyanocobalamin (vitamin B-12) 500 MCG tablet 500 mcg PO DAILY@0800 RF: 0 rosuvastatin 40 MG tablet 40 mg PO DAILY RF: 0 Primary Care Provider: Dutch Zhong Referrals: Dutch Zhong MD [Primary Care Provider] - Activity Restrictions/Additional Instructions: Continue to do Betadine washes to your toe multiple times a day to help dry it out. Follow-up with your contract modeler as scheduled on Monday. Return to the emergency room if you develop worsening redness, fever or have any other concerns. Disposition Disposition: Home, Self Care
--- NOTE | 2022-01-26 03:58 | RAD_ITS ---
EXAM: XR LEFT FOOT COMPLETE, 3 OR MORE VIEWS CLINICAL INDICATION: Injury/Pain TECHNIQUE: Frontal, lateral and oblique views of the left foot. This report was created using [facility] report generation technology. COMPARISON: None. FINDINGS: BONES/JOINTS: Fracture distal aspect proximal phalanx of the fourth toe. Preservation of the joint space. No sclerotic or destructive changes observed. SOFT TISSUES: Soft tissue swelling of the fourth toe. No radiopaque foreign body. RAD/Foot min 3 Views IMPRESSION: 1. Fracture distal aspect proximal phalanx of the fourth toe. 2. Soft tissue swelling of the fourth toe. Electronically Signed: Oswald Hamilton MD at 4:40 EDT ,
--- NOTE | 2022-01-26 03:58 | NURSING ---
port accessed easily and flushes well with patient able to taste the saline when it goes in. with head movement, the blood and saline comes out slowly but not enough to send blood cultures and tubes. Dr Friedman aware.
[2022-01-26 04:15] LABS: Absolute Lymphocyte Count 1.48 X10^3/uL (0.83-4.51); Absolute Neutrophil Count 5.6 X10^3/uL (2.0-7.7); Basophil# 0.02 X10^3/uL; Basophil% 0.3 % (0-1); Eosinophil# 0.08 X10^3/uL; Hematocrit 23.1 % (40-54); Hemoglobin 8.3 g/dL (13.0-16.5); Lymphocyte # 1.48 X10^3/ul (0.83-4.51); Lymphocyte % 18.8 % (19-41); Mean Corp Hgb Conc 35.9 g/dL (32-36); Mean Corpuscular Hgb 31.2 pg (27.0-32.0); Mean Corpuscular Volume 86.8 fL (80-94); Mean Platelet Vol. 9.6 fl (6.2-12.0); Monocyte# 0.62 X10^3/uL; Monocyte% 7.9 % (0-10); NRBC Flagged by Analyzer 0 % (0-5); Neutrophil # 5.61 X10^3/uL (2.7-7.7); Neutrophil % 71.4 % (47-70); Platelet Count 152 K/mm3 (150-450); RBC Distribution Width SD 38.5 fl (35.1-43.9); Red Blood Count 2.66 M/mm3 (4.6-6.2); White Blood Count 7.9 K/mm3 (4.4-11.0)
[2022-01-26 04:29] LABS: Anion Gap 8 (5-15); BUN 31 mg/dL (7-18); BUN/Creat Ratio 18.1 RATIO (10-20); Calcium,Total 8.1 mg/dL (8.5-10.1); Chloride 103 mmol/L (98-107); Creatinine, Serum 1.71 mg/dL (0.70-1.30); EST Glomerular Filtration Rate 45 mL/min (>60); Est Glom Filt Rate - Afr Amer 54 mL/min (>60); Estimated Creatinine Clearance 48.33 ml/min; Glucose 165 mg/dL (74-106); Potassium 3.9 mmol/L (3.5-5.1); Sodium Level 135 mmol/L (136-145)
[2022-01-26] MEDS: HYDROcodone Bitartrate/Apap 5/325 Tablet PO (05:20)
[2022-01-26] MEDS: Alteplase 2 MG/2 ML Vial IV (05:29)
[2022-01-26 06:48] VITALS: BP 154/70; PULSE 78; RESP 16; O2SAT 99
== END 2022-01-26 06:54 | disposition home or self-care (01) ==
PROVIDERS: Emergency Provider Emergency Medicine; PCP Family Medicine; Visit Provider Emergency Medicine
DX: S92.512A Displaced fracture of proximal phalanx of left lesser toe(s), initial encounter for closed fracture (principal); E11.22 Type 2 diabetes mellitus with diabetic chronic kidney disease; E11.40 Type 2 diabetes mellitus with diabetic neuropathy, unspecified; G40.909 Epilepsy, unspecified, not intractable, without status epilepticus; Z79.4 Long term (current) use of insulin; E78.00 Pure hypercholesterolemia, unspecified; I12.9 Hypertensive chronic kidney disease with stage 1 through stage 4 chronic kidney disease, or unspecified chronic kidney disease; N18.9 Chronic kidney disease, unspecified; L03.032 Cellulitis of left toe; D64.9 Anemia, unspecified; Z87.891 Personal history of nicotine dependence; J45.909 Unspecified asthma, uncomplicated; F32.A Depression, unspecified; K21.9 Gastro-esophageal reflux disease without esophagitis; G50.9 Disorder of trigeminal nerve, unspecified; Z85.038 Personal history of other malignant neoplasm of large intestine; Z79.899 Other long term (current) drug therapy; Z87.19 Personal history of other diseases of the digestive system; X58.XXXA Exposure to other specified factors, initial encounter; Z68.31 Body mass index [BMI] 31.0-31.9, adult; E66.9 Obesity, unspecified
CPT/HCPCS: 73630; 80048; 85025; 87040; 96365; 96375; 99283; J2997; A4216; J0295

== ENCOUNTER → 2022-02-01 | Outpatient (CLI) | payer MEDICAID, SELFPAY ==
[2022-02-01 12:33] LABS: Hematocrit 27.5 % (40-54); Hemoglobin 9.2 g/dL (13.0-16.5); Mean Corp Hgb Conc 33.5 g/dL (32-36); Mean Corpuscular Hgb 29.5 pg (27.0-32.0); Mean Corpuscular Volume 88.1 fL (80-94); Mean Platelet Vol. 9.9 fl (6.2-12.0); Platelet Count 235 K/mm3 (150-450); RBC Distribution Width SD 38.7 fl (35.1-43.9); Red Blood Count 3.12 M/mm3 (4.6-6.2); White Blood Count 5.7 K/mm3 (4.4-11.0)
[2022-02-01 12:59] LABS: ALB/GLOB Ratio 0.6 RATIO (0.9-2.4); AST(SGOT) 13 U/L (15-37); Alanine Aminotransfer ALT/SGPT 26 U/L (16-61); Albumin, Serum 3.1 g/dL (3.2-5.0); Alkaline Phosphatase 74 U/L (45-117); Anion Gap 7 (5-15); BUN 27 mg/dL (7-18); BUN/Creat Ratio 17.1 RATIO (10-20); Calcium,Total 9.4 mg/dL (8.5-10.1); Chloride 102 mmol/L (98-107); Creatinine, Serum 1.58 mg/dL (0.70-1.30); EST Glomerular Filtration Rate 49 mL/min (>60); Est Glom Filt Rate - Afr Amer 59 mL/min (>60); Globulin 4.9 g/dL (2.2-4.2); Glucose 216 mg/dL (74-106); Potassium 4.2 mmol/L (3.5-5.1); Sodium Level 134 mmol/L (136-145)
[2022-02-01 13:03] LABS: Carbamazepine (Tegretol) 10.1 ug/mL (4.0-12.0)
== END | disposition home or self-care (01) ==
PROVIDERS: Psychiatry & Neurology Neurology; PCP Family Medicine; Referring Provider Internal Medicine Nephrology; Visit Provider Internal Medicine Nephrology
DX: N18.31 Chronic kidney disease, stage 3a (principal)
CPT/HCPCS: 36415; 80053; 80156; 82043; 82570; 85027

== ENCOUNTER 2022-02-13 13:45 | Emergency (ER) | payer MEDICAID, SELFPAY ==
[2022-02-13 13:46] VITALS: BP 108/63; PULSE 60; RESP 16; TEMP 36.6; O2SAT 100; BMI 32.8
--- NOTE | 2022-02-13 14:32 | EDS_ITS ---
HPI History of Present Illness Chief Complaint: Dizziness Narrative Narrative: 50-year-old male presenting with vertiginous dizziness. He states he was diagnosed with vertigo a week ago. He has meclizine at home but did not take it this afternoon. He states he has associated symptoms of nausea. He denies chest pain or shortness of breath. No fever or chills. [facility] Medical History Alcohol abuse Anemia Asthma Cancer Carpal tunnel syndrome Depressive disorder Diabetes type 2, controlled GERD (gastroesophageal reflux disease) Hepatitis C High cholesterol History of alcohol abuse History of colon cancer HTN (hypertension) Hx of vertigo Hypoglycemia Neuropathy Obesity Pancreatitis portacath placement Seizure disorder Therapeutic drug monitoring Trigeminal nerve disorder Home Medications cholecalciferol (vitamin D3) 25 mcg (1,000 unit) capsule 1,000 unit PO DAILY 10/10/13 [History Last Taken 11/13/15] sertraline 100 mg tablet 100 mg PO DAILY 07/18/14 [History Last Taken 11/13/15] multivitamin with folic acid 400 mcg tablet 1 tab PO DAILY 10/21/14 [History Last Taken 11/13/15] cyanocobalamin (vitamin B-12) 500 mcg tablet 500 mcg PO DAILY@0800 11/24/16 [History Last Taken Unknown] rosuvastatin 40 mg tablet 40 mg PO DAILY 11/24/16 [History Last Taken Unknown] atenolol 50 mg tablet 50 mg PO BID 02/14/18 [History Last Taken Unknown] fish oil-dha-epa 1,200 mg-144 mg-216 mg capsule 1 each PO DAILY 11/14/20 [History Last Taken Unknown] aripiprazole 2 mg tablet (Abilify) 2 mg PO DAILY 12/24/20 [History Last Taken Unknown] insulin glargine 100 unit/mL (3 mL) subcutaneous pen (Basaglar KwikPen U-100 Insulin) 45 unit subcut .QAM & HS 05/20/21 [History Last Taken Unknown] insulin lispro 100 unit/mL subcutaneous pen (Admelog SoloStar U-100 Insulin lispro) 36 unit subcut .QID 05/20/21 [History Last Taken Unknown] lisinopril 40 mg tablet 40 mg PO DAILY 05/20/21 [History Last Taken Unknown] omeprazole 20 mg capsule,delayed release 20 mg PO DAILY 08/10/21 [History Last Taken Unknown] hydrocodone-acetaminophen 5-325mg 5mg-325mg 1 tab PO Q6H PRN pain 3 days #12 tabs 01/26/22 [Rx Last Taken Unknown] carbamazepine 200 mg tablet 600 mg PO BID #540 tabs 02/08/22 [Rx Last Taken Unknown] cephalexin 500 mg capsule 500 mg PO Q8H 02/13/22 [History Last Taken Unknown] levofloxacin 500 mg tablet 1 tab PO DAILY 02/13/22 [History Last Taken Unknown] meclizine 25 mg tablet 25 mg PO TID PRN dizziness #30 tabs 02/13/22 [Rx Last Taken Unknown] Allergy/AdvReac Type Severity Reaction Status Date / Time erythromycin base AdvReac Severe Hives Verified 02/13/22 13:48 loratadine [From Claritin] AdvReac Severe Rash Verified 02/13/22 13:48 Family History Grandmother Cervical cancer Diabetes Hypertension Trigeminal neuralgia Mother Uterine cancer Arthritis Diabetes Hypertension Grandfather Heart disease Arthritis Diabetes Hypertension Unknown Diabetes Arthritis Father Arthritis Diabetes Hypertension Sister Diabetes Hypertension Uncle CVA (cerebral vascular accident) Aunt Cerebral aneurysm Surgical History H/O left hemicolectomy Hx of appendectomy Social History Smoking Status: Former smoker Tobacco: How many years used: 20 how long ago did patient quit smoking: quit 2003 second hand exposure: No alcohol intake: former details: quit 2004 substance use type: former substance user Date of last use: Used Marijuana since he was a teenager ROS ROS ED Constitutional Constitutional ED: Denies chills or fever(s) Eyes Eyes: Reports other Details: Dizziness with head turn Cardiovascular Cardiovascular: Denies chest pain or palpitations Respiratory/Chest Respiratory/Chest: Denies cough or dyspnea Gastrointestinal Gastrointestinal: Denies abdominal pain or constipation Genitourinary Genitourinary ED: Denies dysuria or hematuria Musculoskeletal Musculoskeletal: Denies arthralgias or back pain Integumentary Denies abscess Neurologic Neurologic: Denies headache(s) or paresthesias Psychiatric Psychiatric: Denies anxiety or depression EXAM Physical Exam Const Vital Signs: 02/13/22 13:46 02/13/22 14:03 Temperature 98 F Temperature Source Temporal Pulse Rate 60 Respiratory Rate 16 Respiratory Effort Normal Non-Labored Blood Pressure 108/63 Blood Pressure Mean 78 Pulse Ox 100 Oxygen Delivery Method Room Air Positive well nourished and well developed General Appearance ED: well developed HEENT HEENT Narrative: Reproducible vertiginous symptoms and nystagmus with Louis-Hallpike trauma Eyes PERRL and EOMs intact bilaterally Resp normal respiratory effort and clear to auscultation bilaterally Cardio regular rate and regular rhythm Neuro oriented x3 and CN's II-XII intact bilaterally Sensorium / Orientation: alert Psych mental status grossly normal Skin no rashes or lesions noted, No no wounds and No skin turgor normal MDM MDM MDM Narrative Medical decision making narrative: Patient was given meclizine and Phenergan. On reevaluation at 1520 he states he is doing better. He wants to sit and rest a little longer. He requested prescription for meclizine. Patient was given follow-up with ENT. 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 Anderson for osteomyelitis and he wishes to get a second opinion. Impression: 1 vertigo Lab Data Attestation: I reviewed the patient's lab results. Discharge Plan Triage Chief Complaint: Dizziness ED Provider: Luis Manuel Palomino Dx/Rx/DC Orders Instructions: ED BPV Vertigo Prescriptions: New meclizine 25 mg tablet 25 mg PO TID PRN (Reason: dizziness) Qty: 30 0RF No Action lisinopril 40 mg tablet 40 mg PO DAILY Charisseaglrogers Mancini U-100 Insulin 100 unit/mL (3 mL) insulin pen 45 unit subcut .QAM & HS insulin lispro [Admelog SoloStar U-100 Insulin] 100 unit/mL insulin pen 36 unit subcut .QID Rx Instructions: 18 units @AM,Lunch, Dinner, and HS with sliding scale. omeprazole 20 mg capsule,delayed release(DR/EC) 20 mg PO DAILY Label Comments: take 1 capsule by mouth once daily 1/2 HOUR BEFORE BREAKFAST carbamazepine 200 mg tablet 600 mg PO BID Qty: 540 1RF cholecalciferol (vitamin D3) 1,000 UNIT capsule 1,000 unit PO DAILY Label Comments: VITAMIN atenolol 50 mg tablet 50 mg PO BID Label Comments: BLOOD PRESURE sertraline 100 MG tablet 100 mg PO DAILY multivitamin with folic acid 1 TABLET tablet 1 tab PO DAILY fish oil-dha-epa 1 EACH capsule 1 each PO DAILY aripiprazole [Abilify] 2 mg tablet 2 mg PO DAILY Label Comments: take 2 tablets by mouth once daily hydrocodone-acetaminophen 5-325 mg tablet 1 tab PO Q6H PRN (Reason: pain) 3 Days Qty: 12 0RF cephalexin 500 mg capsule 500 mg PO Q8H levofloxacin 500 mg tablet 1 tab PO DAILY cyanocobalamin (vitamin B-12) 500 MCG tablet 500 mcg PO DAILY@0800 rosuvastatin 40 MG tablet 40 mg PO DAILY Primary Care Provider: Dutch Zhong Referrals: Thu Carlos DPM [STAFF PHYSICIAN] - As Needed Ellis Sandy MD [STAFF PHYSICIAN] - As soon as possible Dutch Zhong MD [Primary Care Provider] - Disposition Disposition: Home, Self Care
[2022-02-13] MEDS: Meclizine HCl 25 MG Tablet PO (14:38)
[2022-02-13] MEDS: proMETHazine 25 MG/ML Syringe 12.5 MG IM (14:41)
[2022-02-13 16:02] VITALS: PULSE 60; RESP 17; O2SAT 99
== END 2022-02-13 16:03 | disposition home or self-care (01) ==
PROVIDERS: Emergency Provider Student in an Organized Health Care Education/Training Program; PCP Family Medicine; Visit Provider Student in an Organized Health Care Education/Training Program
DX: R42 Dizziness and giddiness (principal); E11.40 Type 2 diabetes mellitus with diabetic neuropathy, unspecified; G40.909 Epilepsy, unspecified, not intractable, without status epilepticus; Z79.4 Long term (current) use of insulin; E78.00 Pure hypercholesterolemia, unspecified; E66.9 Obesity, unspecified; I10 Essential (primary) hypertension; F32.A Depression, unspecified; Z68.32 Body mass index [BMI] 32.0-32.9, adult; Z79.899 Other long term (current) drug therapy; Z87.891 Personal history of nicotine dependence
CPT/HCPCS: 96372; 99283

== ENCOUNTER → 2022-05-19 | Outpatient (CLI) | payer MEDICAID, SELFPAY ==
[2022-05-19 10:05] LABS: Hematocrit 26.8 % (40-54); Hemoglobin 9.4 g/dL (13.0-16.5); Mean Corp Hgb Conc 35.1 g/dL (32-36); Mean Corpuscular Hgb 31.6 pg (27.0-32.0); Mean Corpuscular Volume 90.2 fL (80-94); Mean Platelet Vol. 10.7 fl (6.2-12.0); Platelet Count 188 K/mm3 (150-450); RBC Distribution Width CV 12.7 % (11.6-14.6); RBC Distribution Width SD 41.3 fl (35.1-43.9); Red Blood Count 2.97 M/mm3 (4.6-6.2); White Blood Count 5.7 K/mm3 (4.4-11.0)
[2022-05-19 10:13] LABS: Protein, Urine (Random) 199.7 mg/dL (<11.9); Protein:Creat Ratio 5689 mg/g CRE (0-200)
[2022-05-19 10:40] LABS: Vitamin D,25 Hydroxy 9.9 ng/mL
[2022-05-19 11:03] LABS: Albumin, Serum 3.2 g/dL (3.2-5.0); BUN 43 mg/dL (7-18); BUN/Creat Ratio 19.2 RATIO (10-20); Calcium,Total 8.8 mg/dL (8.5-10.1); Chloride 101 mmol/L (98-107); Creatinine, Serum 2.24 mg/dL (0.70-1.30); EST Glomerular Filtration Rate 33 mL/min (>60); Est Glom Filt Rate - Afr Amer 40 mL/min (>60); Glucose 461 mg/dL (74-106); Phosphorus 3.6 mg/dL (2.5-4.9); Sodium Level 133 mmol/L (136-145)
== END | disposition home or self-care (01) ==
LOC: LAB 09:16
PROVIDERS: PCP Family Medicine; Referring Provider Nurse Practitioner Adult Health; Visit Provider Nurse Practitioner Adult Health
DX: D64.9 Anemia, unspecified (principal); N18.31 Chronic kidney disease, stage 3a; R80.9 Proteinuria, unspecified
CPT/HCPCS: 36415; 80069; 82306; 82570; 83970; 84156; 85027

== ENCOUNTER → 2022-09-29 | Outpatient (CLI) | payer MEDICAID, SELFPAY ==
[2022-09-29 10:50] LABS: Hematocrit 26.1 % (40-54); Hemoglobin 8.8 g/dL (13.0-16.5); Mean Corp Hgb Conc 33.7 g/dL (32-36); Mean Corpuscular Volume 91.9 fL (80-94); Platelet Count 133 K/mm3 (150-450); RBC Distribution Width CV 12.6 % (11.6-14.6); RBC Distribution Width SD 41.8 fl (35.1-43.9); Red Blood Count 2.84 M/mm3 (4.6-6.2); White Blood Count 4.4 K/mm3 (4.4-11.0)
[2022-09-29 11:20] LABS: Vitamin D,25 Hydroxy 10.3 ng/mL
[2022-09-29 11:21] LABS: PTHIN 118.7 pg/mL (18.4-80.1)
[2022-09-29 11:22] LABS: Albumin, Serum 2.9 g/dL (3.2-5.0); BUN 29 mg/dL (7-18); BUN/Creat Ratio 13.3 RATIO (10-20); Calcium,Total 8.8 mg/dL (8.5-10.1); Chloride 107 mmol/L (98-107); Creatinine, Serum 2.18 mg/dL (0.70-1.30); EST Glomerular Filtration Rate 34 mL/min (>60); Est Glom Filt Rate - Afr Amer 41 mL/min (>60); Glucose 224 mg/dL (74-106); Phosphorus 4.3 mg/dL (2.5-4.9); Potassium 4.9 mmol/L (3.5-5.1); Sodium Level 138 mmol/L (136-145)
[2022-09-29 11:34] LABS: Protein, Urine (Random) 388.9 mg/dL (<11.9); Protein:Creat Ratio 8859 mg/g CRE (0-200)
== END | disposition home or self-care (01) ==
PROVIDERS: PCP Family Medicine; Visit Provider Nurse Practitioner Adult Health
DX: N18.31 Chronic kidney disease, stage 3a (principal); D64.9 Anemia, unspecified; R80.9 Proteinuria, unspecified
CPT/HCPCS: 36415; 80069; 82306; 82570; 83970; 84156; 85027

== ENCOUNTER → 2022-11-02 | Outpatient (CLI) | payer MEDICAID, SELFPAY ==
[2022-11-02 11:08] LABS: Carbamazepine (Tegretol) 8.5 ug/mL (4.0-12.0)
== END | disposition home or self-care (01) ==
LOC: MTLAB 08:58
PROVIDERS: PCP Family Medicine; Visit Provider Psychiatry & Neurology Neurology
DX: G50.0 Trigeminal neuralgia (principal)
CPT/HCPCS: 36415; 80156

== ENCOUNTER 2022-11-23 11:05 | Inpatient (IN) | payer MEDICAID, SELFPAY ==
[2022-11-23] VITALS (14 sets, daily range): BP systolic 97–165; BP diastolic 60–83; PULSE 70–81; RESP 14–18; TEMP 35.9–37.2; O2SAT 98–100; BMI 32.8; BMI 32.0
--- NOTE | 2022-11-23 11:29 | RAD_ITS ---
STUDY: X-RAY CHEST REASON FOR EXAM: Male, 52 years old. Chest pain TECHNIQUE: Single AP portable view of the chest. COMPARISON: June 19, 2020 chest x-ray FINDINGS: There is a left-sided Port-A-Cath tip is in the atriocaval junction. The lungs are clear and expanded. There is no demonstrated pleural abnormality. Normal size heart. Normal mediastinum and amaury. Normal visualized pulmonary arteries. Normal visualized aortic arch and descending thoracic aorta. There are diffuse degenerative changes of the visualized thoracic spine. Normal visualized ribs, clavicles, and shoulders. There is no demonstrated abnormality of the visualized soft tissue structures of the upper abdomen. RAD/Chest 1 View (Portable) IMPRESSION: Stable chest no visualized focal infiltrate. Electronically Signed: Irma Cervantes MD at 12:49 EDT ,
--- NOTE | 2022-11-23 11:29 | EKG12_ITS ---
Test Reason : SYNCOPE Blood Pressure : / mmHG Vent. Rate : 072 BPM Atrial Rate : 072 BPM P-R Int : 164 ms QRS Dur : 100 ms QT Int : 390 ms P-R-T Axes : 032 000 051 degrees QTc Int : 427 ms Normal sinus rhythm Normal ECG Confirmed by TARA GARCIA, MARLENE ([id number]), medical transcription editor MORGAN JAMISON ([id number]) on 11/28/2022 6:58:15 AM Referred By: CLAUDIA Confirmed By:RADHA PACHECO MD
--- NOTE | 2022-11-23 11:31 | EX.ED.DYSGE1 ---
HPI History of Present Illness Chief Complaint: Syncope Informant: patient and parent Onset/Context/Timing Onset: Today Context: Sudden Onset Timing: Continuous Current Severity: Gone Maximum Severity: Moderate Narrative Narrative: 52-year-old male history of diabetes, hypertension and trigeminal neuralgia. Reportedly per his mom he had a syncopal episode today at home and lasted maybe 5 minutes. Said he had some mild dizziness and nausea before it happened. He was upright sitting when it occurred. No fall no injury. No seizure activity. No chest pain or shortness of breath. He is on no blood thinners. He has had multiple syncopal events in the past without any specific diagnosis. He has had no recent illness or any recent hospitalization. He has no cardiac history. Prior similar symptoms: Yes Recent Illness/Hospitalization: No PFSH PFS Medical History Alcohol abuse Anemia Asthma Cancer Carpal tunnel syndrome Depressive disorder Diabetes type 2, controlled GERD (gastroesophageal reflux disease) Hepatitis C High cholesterol History of alcohol abuse History of colon cancer HTN (hypertension) Hx of vertigo Hypoglycemia Neuropathy Obesity Pancreatitis portacath placement Seizure disorder Therapeutic drug monitoring Trigeminal nerve disorder Home Medications cholecalciferol (vitamin D3) 25 mcg (1,000 unit) capsule 1,000 unit PO DAILY 10/10/13 [History Last Taken 11/13/15] sertraline 100 mg tablet 100 mg PO DAILY 07/18/14 [History Last Taken 11/13/15] multivitamin with folic acid 400 mcg tablet 1 tab PO DAILY 10/21/14 [History Last Taken 11/13/15] cyanocobalamin (vitamin B-12) 500 mcg tablet 500 mcg PO DAILY@0800 11/24/16 [History Last Taken Unknown] rosuvastatin 40 mg tablet 40 mg PO DAILY 11/24/16 [History Last Taken Unknown] atenolol 50 mg tablet 50 mg PO BID 02/14/18 [History Last Taken Unknown] fish oil-dha-epa 1,200 mg-144 mg-216 mg capsule 1 each PO DAILY 11/14/20 [History Last Taken Unknown] aripiprazole 2 mg tablet (Abilify) 2 mg PO DAILY 12/24/20 [History Last Taken Unknown] insulin glargine 100 unit/mL (3 mL) subcutaneous pen (Basaglar KwikPen U-100 Insulin) 45 unit subcut .QAM & HS 05/20/21 [History Last Taken Unknown] insulin lispro 100 unit/mL [facility] pen [facility] lispro) 36 unit subcut .QID 05/20/21 [History Last Taken Unknown] lisinopril 40 mg tablet 40 mg PO DAILY 05/20/21 [History Last Taken Unknown] omeprazole 20 mg capsule,delayed release 20 mg PO DAILY 08/10/21 [History Last Taken Unknown] meclizine 25 mg tablet 25 mg PO TID PRN dizziness #30 tabs 02/13/22 [Rx Last Taken Unknown] doxazosin 4 mg tablet 4 mg PO DAILY 05/10/22 [History Last Taken Unknown] carbamazepine 200 mg tablet 600 mg PO BID #540 tabs 11/02/22 [Rx Last Taken Unknown] furosemide 20 mg tablet 20 mg PO DAILY 11/02/22 [History Last Taken Unknown] Allergy/AdvReac Type Severity Reaction Status Date / Time erythromycin base AdvReac Severe Hives Verified 11/23/22 11:06 loratadine [From Claritin] AdvReac Severe Rash Verified 11/23/22 11:06 Family History Grandmother Cervical cancer Diabetes Hypertension Trigeminal neuralgia Mother Uterine cancer Arthritis Diabetes Hypertension Grandfather Heart disease Arthritis Diabetes Hypertension Unknown Diabetes Arthritis Father Arthritis Diabetes Hypertension Sister Diabetes Hypertension Uncle CVA (cerebral vascular accident) Aunt Cerebral aneurysm Surgical History H/O left hemicolectomy Hx of appendectomy Social History Smoking Status: Former smoker Tobacco: How many years used: 20 how long ago did patient quit smoking: quit 2003 second hand exposure: No alcohol intake: former details: quit 2004 substance use type: former substance user Date of last use: Used Marijuana since he was a teenager ROS ROS ED ROS Narrative No recent illness. Review of Systems ROS Unobtainable: Denies due to encephalopathy Constitutional Constitutional ED: Denies chills or fever(s) Eyes Eyes: Denies blurry vision ENT ENT ED: Denies ear pain Cardiovascular Cardiovascular: Denies chest pain Respiratory/Chest Respiratory/Chest: Denies cough or dyspnea Gastrointestinal Gastrointestinal: Denies abdominal pain, constipation, diarrhea, melena, nausea or vomiting Genitourinary Genitourinary ED: Denies dysuria or hematuria Musculoskeletal Musculoskeletal: Denies arthralgias Integumentary Denies abscess Neurologic Neurologic: Denies headache(s) Psychiatric Psychiatric: Denies anxiety Endocrine Endocrinology: Denies cold intolerance Hematologic/Lymphatic Hematologic/Lymphatic: Reports none Allergic/Immunologic Allergic/Immunologic ED: Denies mouth swelling or tongue swelling EXAM Physical Exam Narrative Exam Narrative: 52-year-old male no acute distress. Vital signs stable afebrile. Pulse ox 100% on room air. Blood pressure 114/74. He does not look septic toxic or in any distress. He is awake alert sitting upright in bed. Mother is at bedside. H EENT exam unremarkable. Pupils round react light. No facial trauma. No droop. Normal speech. Neck nontender. Lungs clear. Heart regular rhythm rate about 70 no murmur. Chest wall nontender. Abdomen soft nontender. Moving all 4 extremities. 5 out of 5 clinical applications specialist strength. Dorsi plantarflexion intact. Normal range of motion. Nontender no deformity. Back nontender. Neurologically is awake and alert. Answering questions following commands. NIH score is 0. Normal neurologic exam. Const Vital Signs: 11/23/22 11:07 11/23/22 11:11 11/23/22 11:29 Temperature 96.6 F L Temperature Source Temporal Pulse Rate 73 Respiratory Rate 18 Respiratory Effort Normal Non-Labored Respiratory Pattern Normal Blood Pressure 114/74 Blood Pressure Mean 87 Pulse Ox 100 Oxygen Delivery Method Room Air Room Air 11/23/22 12:30 Temperature 97.6 F L Temperature Source Temporal Pulse Rate 70 Respiratory Rate 14 Respiratory Effort Respiratory Pattern Blood Pressure 113/60 Blood Pressure Mean 77 Pulse Ox 100 Oxygen Delivery Method Room Air Positive well nourished and well developed; Negative for cachectic, contractures or unkempt General Appearance ED: well developed and NAD; Negative for unkempt, cachectic, contractures, cyanotic or diaphoretic Nutritional Appearance: Negative for cachectic HEENT Reports moist mucous membranes; Denies dry mucous membranes Negative for trauma or tenderness Mouth ED: No dry mucous membranes Mouth: No dry mucous membranes Eyes PERRL and EOMs intact bilaterally General Eye ED: Negative for pale conjunctiva or scleral icterus Neck no lymphadenopathy, supple and no JVD General: Negative for tenderness Lymph Lymphatic: Negative for other Chest Wall inspection of chest normal and palpation of chest normal Chest: Negative for other Resp normal respiratory effort and clear to auscultation bilaterally Effort and Inspection: Negative for retractions Auscultation: Negative for rales, rhonchi or wheezes Cardio regular rate, regular rhythm, S1 normal heart sound, S2 normal heart sound and no murmurs GI normal to inspection, nondistended, normoactive bowel sounds, non-tender, non-distended and no masses Inspection: Negative for abdominal distention Palpation: soft; Negative for tender Back/Spine Negative for no CVA tenderness General Back: Negative for CVA tenderness Cervical Spine: Negative for cervical spine tenderness Thoracic Spine / Upper Back: Negative for thoracic spinal tenderness Lumbar Spine / Lower Back: Negative for lumbar spinal tenderness Extremity normal to inspection General Extremety ED: Negative for edema or tenderness General Extremity: Negative for edema Neuro oriented x3, CN's II-XII intact bilaterally and no sensory deficits noted Sensorium / Orientation: alert; Negative for orientation impaired, lethargic or stuporous Motor Exam: strength 5/5 throughout Psych mental status grossly normal Appearance: Negative for unkempt Attitude: No agitated Mood & Affect: Negative for depressed, anxious or tearful Skin no rashes or lesions noted, no wounds and skin turgor normal Lesions: No lesion noted Rashes: No rashes noted Trauma: Negative for abrasion Wounds: Negative for wounds noted MDM MDM MDM Narrative Medical decision making narrative: 52-year-old male with a syncopal episode. Is a completely normal exam at this time. Has had multiple syncopal events in the past without any specific diagnosis. He has no cardiac history. Will undergo cardiac work-up. Orthostatic vital signs. He has a mild headache he will be given Tylenol. Repeat exam patient is doing well at 12:25 PM. His anemia is significantly worsened from last April is now down to 6.3 he is symptomatic with it. I do not know what specifically related or not to his syncope today but I think he needs transfused. I have ordered a type and cross for 2 units. I have the hospitalist on page for admission. History & Record Review Discussion w/independent historian: Patient and Family Lab Data Attestation: I reviewed the patient's lab results. Lab results narrative: Chest x-ray showed no acute abnormality. CBC shows a white count of 4.6. H&H is 6.3 and 19. Consistent with significant anemia. Platelet count 154. Electrolytes show sodium 134 gap of 5 BUN of 44 creatinine 2.27. Glucose is elevated at 336. Troponin is normal at 13. Comparing this to his old labs his renal insufficiency is chronic he had a prior creatinine 2.59. He has a worsening anemia he was 9.6 around last April and has progressively gone down and now is 6.3. Orthostatic vital signs lying were 128/67 with a heart rate of 71. Sitting 119/68 with a heart rate of 74. And patient attempted to stand get dizzy and sat down so they were not completed. Labs: Laboratory Results - last 24 hr 11/23/22 11/23/22 11/23/22 11:37 11:37 12:36 WBC 4.6 RBC 2.07 L Hgb 6.3 L Hct 19.0 L MCV 91.8 MCH 30.4 MCHC 33.2 RDW Std Deviation 43.8 RDW Coeff of Ever 13.6 Plt Count 154 MPV 10.8 Immature Gran % (Auto) 1.300 H Neut % (Auto) 65.2 Lymph % (Auto) 25.6 [place] % (Auto) 6.0 Eos % (Auto) 1.5 Baso % (Auto) 0.4 Absolute Neuts (auto) 3.0 Absolute Lymphs (auto) 1.19 Nucleated RBC % 0 Sodium 134 L Potassium 5.1 Chloride 108 H Carbon Dioxide 21.0 Anion Gap 5 BUN 44 H Creatinine 2.27 H Estim Creat Clear Calc 35.99 Est GFR (MDRD) Af Amer 39 L Est GFR (MDRD) Non-Af 32 L BUN/Creatinine Ratio 19.4 Glucose 336 H Calcium 7.3 L Troponin I High Sens 13 Crossmatch See Detail Radiography Chest X-Ray - ED: 1 View, Read by ED Physician, Normal, Heart, Lungs, Mediastinum and Bony Structures Diagnostic Testing: Clinical Impression(s) from Imaging Studies Chest X-Ray 11/23/22 11:29 IMPRESSION: Stable chest no visualized focal infiltrate. Electronically Signed: Irma Cervantes MD at 12:49 EDT , Chest x-ray, portable, single view, interpreted by myself shows no acute abnormality. Normal cardiac silhouette. No infiltrates. Left sided med port. Rhythm Strip Rhythm Strip: Sinus Rhythm Rate: 72 Ectopy: None EKG Initial EKG: Attestation: I personally reviewed and interpreted this EKG as follows: Interpretation: Sinus Rhythm and No Acute Injury Pattern Comments: Normal sinus rhythm rate of 72 no acute signs of LA or ischemia. No change from prior EKG from October of last year. Prior EKG tracings: available for review Prior: Unchanged Discharge Plan Dx/Rx/DC Orders Clinical Impression: Syncope, Anemia, History of diabetes mellitus Disposition Disposition: Acute Care Hospital [facility]
[2022-11-23] MEDS: Acetaminophen 500 MG Tablet 1000 MG PO (11:37)
[2022-11-23 12:04] LABS: Absolute Lymphocyte Count 1.19 X10^3/uL (0.83-4.51); Basophil# 0.02 X10^3/uL; Basophil% 0.4 % (0-1); Eosinophil# 0.07 X10^3/uL; Eosinophils% 1.5 % (0-5); Hemoglobin 6.3 g/dL (13.0-16.5); Lymphocyte # 1.19 X10^3/ul (0.83-4.51); Lymphocyte % 25.6 % (19-41); Mean Corp Hgb Conc 33.2 g/dL (32-36); Mean Corpuscular Hgb 30.4 pg (27.0-32.0); Mean Corpuscular Volume 91.8 fL (80-94); Mean Platelet Vol. 10.8 fl (6.2-12.0); Monocyte# 0.28 X10^3/uL; NRBC Flagged by Analyzer 0 % (0-5); Neutrophil # 3.02 X10^3/uL (2.7-7.7); Neutrophil % 65.2 % (47-70); Platelet Count 154 K/mm3 (150-450); RBC Distribution Width CV 13.6 % (11.6-14.6); RBC Distribution Width SD 43.8 fl (35.1-43.9); Red Blood Count 2.07 M/mm3 (4.6-6.2); White Blood Count 4.6 K/mm3 (4.4-11.0)
[2022-11-23 12:08] LABS: Anion Gap 5 (5-15); BUN 44 mg/dL (7-18); BUN/Creat Ratio 19.4 RATIO (10-20); Calcium,Total 7.3 mg/dL (8.5-10.1); Chloride 108 mmol/L (98-107); Creatinine, Serum 2.27 mg/dL (0.70-1.30); EST Glomerular Filtration Rate 32 mL/min (>60); Est Glom Filt Rate - Afr Amer 39 mL/min (>60); Estimated Creatinine Clearance 35.99 ml/min; Glucose 336 mg/dL (74-106); Potassium 5.1 mmol/L (3.5-5.1); Sodium Level 134 mmol/L (136-145); Troponin-I HS 13 pg/mL (3.0-78.0)
--- NOTE | 2022-11-23 12:36 | NURSING ---
PCU OBS BUI ANEMIA, SYNCOPE
--- NOTE | 2022-11-23 13:03 | CT_ITS ---
STUDY: CT BRAIN WITHOUT CONTRAST REASON FOR EXAM: Male, 52 years old. Syncope. History of alcohol abuse. RADIATION DOSAGE (If Supplied By Facility): CTDIvol = ( 44.99 ) mGy, DLP = ( 863.60 ) mGycm TECHNIQUE: Transaxial CT imaging of the brain was performed without administration of intravenous contrast material. Individualized dose optimization techniques were used for this CT. COMPARISON: Comparison is made with prior study dated October 10, 2013. FINDINGS: Normal soft tissue structures. Normal calvarium. There is moderate cerebral atrophy with widening of the extra-axial spaces and ventricular dilatation. Normal white matter tracts of the cerebral hemispheres. Normal basal ganglia and thalami. Normal brainstem. Normal cerebellum. There is no intracranial hemorrhage. There are no findings of an acute ischemic infarction. Normal visualized paranasal sinuses. CT/Brain/Head without Contrast IMPRESSION: Chronic involutional changes of the brain. Electronically Signed: Steve Holguin MD at 14:08 EDT ,
--- NOTE | 2022-11-23 13:03 | ECHOCS_ITS ---
Reason For Study: SYNCOPE/NEAR SYNCOPE Procedure This was a 2D Doppler, Color Flow transthoracic echocardiogram. The study was technically difficult. Exam performed portable in patient room. Left Ventricle Normal LV size. Mild concentric left ventricular hypertrophy. Left ventricular systolic function is normal. The estimated ejection fraction is 60 %. No regional wall motion abnormalities noted. Right Ventricle Normal RV size. Normal systolic function. Atria Normal left atrium. Normal right atrium. Mitral Valve Normal mitral valve. Tricuspid Valve Normal tricuspid valve. Aortic Valve Normal aortic valve. Pulmonic Valve The pulmonic valve is not well visualized. Great Vessels Normal aortic root. The pulmonary artery is normal size. Normal inferior vena cava. Pericardium/Pleural No pericardial effusion. Medication Diluted definity 2.5ml given slow IV push to enhance endocardial definition. MMode/2D Measurements & Calculations LVIDd: 5.4 cm IVSd: 1.2 cm Ao root diam: 3.1 cm LVIDs: 3.5 cm LVPWd: 1.2 cm RVDd: 3.9 cm FS: 35.9 % LAV(MOD-bp): 47.7 ml LVAd ap4: 45.1 cm2 SV(MOD-sp4): 124.6 ml LAV(MOD-bp) Indexed: 22.6 ml/m2 LVLd ap4: 9.2 cm LAV(MOD-sp2): 45.5 ml EDV(MOD-sp4): 181.1 ml LAV(MOD-sp4): 45.4 ml EDV(sp4-el): 187.3 ml LVAs ap4: 23.5 cm2 LVLs ap4: 8.0 cm ESV(MOD-sp4): 56.5 ml ESV(sp4-el): 59.1 ml EF(MOD-sp4): 68.8 % EF(sp4-el): 68.5 % SV(sp4-el): 128.3 ml LA A4 area: 18.2 cm2 LA dimension(2D): 3.8 cm RA A4 area: 15.1 cm2 Time Measurements MV dec time: 0.24 sec Doppler Measurements & Calculations MV E max russ: 108.9 cm/sec Lat Peak E' Russ: 13.6 cm/sec Med Peak E' Russ: 9.2 cm/sec MV A max russ: 94.2 cm/sec E/E' lat: 8.0 E/E' med: 11.8 MV E/A: 1.2 Ao V2 max: 187.0 cm/sec LV V1 max: 126.0 cm/sec PA V2 max: 158.6 cm/sec Ao max P.0 mmHg LV V1 max P.4 mmHg ECHO/Echo Complete W/ Contrast Interpretation Summary Normal LV size. Left ventricular systolic function is normal. The estimated ejection fraction is 60 %. Mild concentric left ventricular hypertrophy. Contrast injection was performed. Ordering Physician: Maria Antonia Renae Referring Physician: CHRISS CRUZ Performed By: Aleyda Glass RDCS
--- NOTE | 2022-11-23 13:07 | HP.PCM.HOS_ITS ---
HPI - General General Date of Admission: 11/23/22 Date of Service: 11/23/22 HPI Narrative REGINALDO HUFFMAN, is a 52 M with history of trigeminal neuralgia, depression, v ertigo, type 2 diabetes mellitus, colon cancer status post resection chemo radiation in 2013, hypertension who presented to [facility] 11/23/2022 after syncopal episode. In the ED he was found to have a hemoglobin of 6.3 and hospitalist consulted for admission. He reportedly has a history of anemia and recently started to shots to help his hemoglobin a week ago through Dr. Ibarra's office though he is not sure which injection this was but said it was at the suggestion of his barrel charrer helper. He had been in his usual health until this morning. He got up and went to the bathroom and then went to his living room, he became somewhat lightheaded and sat down on the bench and then lost consciousness. Mother at bedside reports he was out for about 5 minutes but had no shaking or other noted activity. He was not confused when he woke up. Has had some headaches off and on lately, does report history of vertigo and initially thought that that was this but denies ever passing out without before. Denies chest pain or shortness of breath. No numbness weakness or tingling. No recent rashes, bruising, bleeding. Shortly after his syncopal episode he did have some dizziness and nausea for about 15 to 20 minutes and that is resolved. Had not had any GI upset before or after. [facility] Medical History Alcohol abuse Anemia Asthma Cancer Carpal tunnel syndrome Depressive disorder Diabetes type 2, controlled GERD (gastroesophageal reflux disease) Hepatitis C High cholesterol History of alcohol abuse History of colon cancer HTN (hypertension) Hx of vertigo Hypoglycemia Neuropathy Obesity Pancreatitis portacath placement Seizure disorder Therapeutic drug monitoring Trigeminal nerve disorder Home Medications cholecalciferol (vitamin D3) 25 mcg (1,000 unit) capsule 1,000 unit PO DAILY 10/10/13 [History Last Taken 11/13/15] sertraline 100 mg tablet 100 mg PO DAILY 07/18/14 [History Last Taken 11/13/15] multivitamin with folic acid 400 mcg tablet 1 tab PO DAILY 10/21/14 [History Last Taken 11/13/15] cyanocobalamin (vitamin B-12) 500 mcg tablet 500 mcg PO DAILY@0800 11/24/16 [History Last Taken Unknown] rosuvastatin 40 mg tablet 40 mg PO DAILY 11/24/16 [History Last Taken Unknown] atenolol 50 mg tablet 50 mg PO BID 02/14/18 [History Last Taken Unknown] fish oil-dha-epa 1,200 mg-144 mg-216 mg capsule 1 each PO DAILY 11/14/20 [History Last Taken Unknown] aripiprazole 2 mg tablet (Abilify) 2 mg PO DAILY 12/24/20 [History Last Taken Unknown] insulin glargine 100 unit/mL (3 mL) subcutaneous pen (Basaglar KwikPen U-100 Insulin) 45 unit subcut .QAM & HS 05/20/21 [History Last Taken Unknown] insulin lispro 100 unit/mL subcutaneous pen (Admelog SoloStar U-100 Insulin lispro) 36 unit subcut .QID 05/20/21 [History Last Taken Unknown] lisinopril 40 mg tablet 40 mg PO DAILY 05/20/21 [History Last Taken Unknown] omeprazole 20 mg capsule,delayed release 20 mg PO DAILY 08/10/21 [History Last Taken Unknown] meclizine 25 mg tablet 25 mg PO TID PRN dizziness #30 tabs 02/13/22 [Rx Last Taken Unknown] doxazosin 4 mg tablet 4 mg PO DAILY 05/10/22 [History Last Taken Unknown] carbamazepine 200 mg tablet 600 mg PO BID #540 tabs 11/02/22 [Rx Last Taken Unknown] furosemide 20 mg tablet 20 mg PO DAILY 11/02/22 [History Last Taken Unknown] Allergy/AdvReac Type Severity Reaction Status Date / Time erythromycin base AdvReac Severe Hives Verified 11/23/22 11:06 loratadine [From Claritin] AdvReac Severe Rash Verified 11/23/22 11:06 Family History Grandmother Cervical cancer Diabetes Hypertension Trigeminal neuralgia Mother Uterine cancer Arthritis Diabetes Hypertension Grandfather Heart disease Arthritis Diabetes Hypertension Unknown Diabetes Arthritis Father Arthritis Diabetes Hypertension Sister Diabetes Hypertension Uncle CVA (cerebral vascular accident) Aunt Cerebral aneurysm Surgical History H/O left hemicolectomy Hx of appendectomy Social History Smoking Status: Former smoker Tobacco: How many years used: 20 how long ago did patient quit smoking: quit 2003 second hand exposure: No alcohol intake: former details: quit 2003 substance use type: former substance user Date of last use: Used Marijuana since he was a teenager Vital Signs Vital Signs Vital Signs: 11/23/22 11:07 11/23/22 11:11 11/23/22 11:29 Temperature 96.6 F L Temperature Source Temporal Pulse Rate 73 Pulse Rate [Lying] Respiratory Rate 18 Respiratory Effort Normal Non-Labored Respiratory Pattern Normal Blood Pressure 114/74 Blood Pressure [Lying] Blood Pressure [Sitting (for 1 minute prior to obtaining)] Blood Pressure Mean 87 Blood Pressure Mean [Lying] Blood Pressure Mean [Sitting (for 1 minute prior to obtaining)] Pulse Ox 100 Oxygen Delivery Method Room Air Room Air 11/23/22 12:48 11/23/22 12:30 Temperature 97.6 F L Temperature Source Temporal Pulse Rate 70 Pulse Rate [Lying] 71 Respiratory Rate 14 Respiratory Effort Respiratory Pattern Blood Pressure 113/60 Blood Pressure [Lying] 128/67 H Blood Pressure [Sitting (for 1 minute prior to obtaining)] 119/68 Blood Pressure Mean 77 Blood Pressure Mean [Lying] 87 Blood Pressure Mean [Sitting (for 1 minute prior to obtaining)] 85 Pulse Ox 100 Oxygen Delivery Method Room Air Weight Weight: 98.3 kg Body Mass Index (BMI) 32.8 Results Lab / Micro Data Result Diagrams: 11/23/22 11:37 11/23/22 11:37 Labs: Laboratory Results - last 24 hr 11/23/22 11:37: WBC 4.6, RBC 2.07 L, Hgb 6.3 L, Hct 19.0 L, MCV 91.8, MCH 30.4, MCHC 33.2, RDW Std Deviation 43.8, RDW Coeff of Ever 13.6, Plt Count 154, MPV 10.8, Immature Gran % (Auto) 1.300 H, Neut % (Auto) 65.2, Lymph % (Auto) 25.6, [place] % (Auto) 6.0, Eos % (Auto) 1.5, Baso % (Auto) 0.4, Absolute Neuts (auto) 3.0, Absolute Lymphs (auto) 1.19, Nucleated RBC % 0 11/23/22 11:37: Sodium 134 L, Potassium 5.1, Chloride 108 H, Carbon Dioxide 21.0, Anion Gap 5, BUN 44 H, Creatinine 2.27 H, Estim Creat Clear Calc 35.99, Est GFR (MDRD) Af Amer 39 L, Est GFR (MDRD) Non-Af 32 L, BUN/Creatinine Ratio 19.4, Glucose 336 H, Calcium 7.3 L, Troponin I High Sens 13 11/23/22 12:36: Crossmatch See Detail Rhythm Strip Rhythm Strip: Sinus Rhythm Rate: 72 Ectopy: None Radiology Impression Chest X-Ray 11/23/22 11:29 IMPRESSION: Stable chest no visualized focal infiltrate. Electronically Signed: Irma Cervantes MD at 12:49 EDT , Assessment & Plan Assessment/Plan (1) Syncope: PLAN: Plan #Sycnopal episode -admit to telemetry -Suspect orthostatic secondary to low hemoglobin -We will transfuse 2 unit of packed red blood cells as well as hydration -EGK NSR, no blocks -CT head ordered -orthostatic vital signs +, pt quite symptomatic when standing and had to sit back down -will obtain echo -Holter monitor on d/c if no arrhythmia detected -EEG ordered given how long patient was down, though less likely seizure with patient on Tegretol -Hold Lasix and doxazosin #Acute on Chronic Anemia/history of colon cancer status postresection and chemoradiation in 2013 -IVPPI -stool occult -type and cross- transfuse 2u prbc -Has had chronic downtrend in his hemoglobin but reports no recent upper or lower endoscopies -If FOBT positive will consult GI -Follows with Dr. Ibarra as an outpatient and was recently started on an injection to help his hemoglobin #DMII -glucose checks and SSI -Long-acting insulin continued at slightly lower dose as well as his 4 times daily lispro at lower dose in addition to the sliding scale #CKD stage IIIb -Appears to be close to baseline -Follows with Dr. Rm as an outpatient #Depression -Continue Abilify and Tegretol #DVT ppx: SCDs Maria Antonia Renae MD Time spent in the patient's overall evaluation,decision-making process, review of diagnostic data, adjustment of management, discussion with other providers, nursing nursing and ancillary staff involved in patient's care documentation, 60 minutes Charges/Coding Visit Charges Inpatient E&M: 31483 Init Hosp L2
[2022-11-23] MEDS: 0.9% Normal Saline 1,000 ML 100 ML IV (14:37)
[2022-11-23] MEDS: 0.9% Saline Lock 10 ML Syringe IV (14:46)
[2022-11-23 17:30] LABS: Bedside Glucose 294 mg/dL (74-106)
[2022-11-23] MEDS: carBAMazepine 200 MG Tablet 600 MG PO (17:36)
[2022-11-23] MEDS: Insulin Lispro 100 UNIT/ML INSULN.PEN 18 UNIT SC ×2 (17:38→20:31)
[2022-11-23] MEDS: Insulin Lispro 100 UNIT/ML INSULN.PEN SC ×2 (17:38→20:32)
[2022-11-23] MEDS: Glucerna Shake 120 ML LIQUID PO (20:30)
[2022-11-23] MEDS: Insulin Glargine-YFGN 100 UNIT/ML Pen 40 UNIT SC (20:34)
[2022-11-23] MEDS: Atorvastatin Calcium 80 MG Tablet PO (20:39)
[2022-11-23] MEDS: Atenolol 25 MG Tablet PO (20:46)
--- NOTE | 2022-11-23 23:00 | EX.PCM.CON.G ---
HPI Consult Data Date of Consult: 11/23/22 HPI Narrative Reason for Consultation: Anemia HPI Narrative: REGINALDO HUFFMAN, is a 52 M who presents after a syncopal episode. He reportedlyhad a syncopal episode today at home and lasted maybe 5 minutes.? Said he had some mild dizziness and nausea before it happened.? He was upright sitting when it occurred.? No fall no injury.? No seizure activity.? No chest pain or shortness of breath.? He is on no blood thinners.? He has had multiple syncopal events in the past without any specific diagnosis.? He has had no recent illness or any recent hospitalization.? He has no cardiac history. His hemoglobin was discovered to be 6.3. It is down from 9.6. He was diagnosed with right-sided colon cancer, stage IIIA(pT1 pN1a M0).? 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 He had 12 cycles of FOLFOX from October 21, 2014 to March 24, 2015.? CT scan on August 11, 2015 showed 8.5 mm hypodensity in liver which has remained stable on MRI done on April 21, 2016 which subsequently resolved.? [facility] Medical History Alcohol abuse Anemia Asthma Cancer Carpal tunnel syndrome Depressive disorder Diabetes type 2, controlled GERD (gastroesophageal reflux disease) Hepatitis C High cholesterol History of alcohol abuse History of colon cancer HTN (hypertension) Hx of vertigo Hypoglycemia Neuropathy Obesity Pancreatitis portacath placement Seizure disorder Therapeutic drug monitoring Trigeminal nerve disorder Home Medications cholecalciferol (vitamin D3) 25 mcg (1,000 unit) capsule 1,000 unit PO DAILY 10/10/13 [History Last Taken 11/13/15] sertraline 100 mg tablet 100 mg PO DAILY 07/18/14 [History Last Taken 11/13/15] multivitamin with folic acid 400 mcg tablet 1 tab PO DAILY 10/21/14 [History Last Taken 11/13/15] cyanocobalamin (vitamin B-12) 500 mcg tablet 500 mcg PO DAILY@0800 11/24/16 [History Last Taken Unknown] rosuvastatin 40 mg tablet 40 mg PO DAILY 11/24/16 [History Last Taken Unknown] atenolol 50 mg tablet 50 mg PO BID 02/14/18 [History Last Taken Unknown] fish oil-dha-epa 1,200 mg-144 mg-216 mg capsule 1 each PO DAILY 11/14/20 [History Last Taken Unknown] aripiprazole 2 mg tablet (Abilify) 2 mg PO DAILY 12/24/20 [History Last Taken Unknown] insulin glargine 100 unit/mL (3 mL) subcutaneous pen (Basaglar KwikPen U-100 Insulin) 45 unit subcut .QAM & HS 05/20/21 [History Last Taken Unknown] insulin lispro 100 unit/mL subcutaneous pen (Admelog SoloStar U-100 Insulin lispro) 36 unit subcut .QID 05/20/21 [History Last Taken Unknown] lisinopril 40 mg tablet 40 mg PO DAILY 05/20/21 [History Last Taken Unknown] omeprazole 20 mg capsule,delayed release 20 mg PO DAILY 08/10/21 [History Last Taken Unknown] meclizine 25 mg tablet 25 mg PO TID PRN dizziness #30 tabs 02/13/22 [Rx Last Taken Unknown] doxazosin 4 mg tablet 4 mg PO DAILY 05/10/22 [History Last Taken Unknown] carbamazepine 200 mg tablet 600 mg PO BID #540 tabs 11/02/22 [Rx Last Taken Unknown] furosemide 20 mg tablet 20 mg PO DAILY 11/02/22 [History Last Taken Unknown] Allergy/AdvReac Type Severity Reaction Status Date / Time erythromycin base AdvReac Severe Hives Verified 11/23/22 11:06 loratadine [From Claritin] AdvReac Severe Rash Verified 11/23/22 11:06 Family History Grandmother Cervical cancer Diabetes Hypertension Trigeminal neuralgia Mother Uterine cancer Arthritis Diabetes Hypertension Grandfather Heart disease Arthritis Diabetes Hypertension Unknown Diabetes Arthritis Father Arthritis Diabetes Hypertension Sister Diabetes Hypertension Uncle CVA (cerebral vascular accident) Aunt Cerebral aneurysm Surgical History H/O left hemicolectomy Hx of appendectomy Social History (Updated 11/24/22 @ 11:01 by Monie Siegel) current gender identity: male Smoking Status: Former smoker Tobacco: How many years used: 20 how long ago did patient quit smoking: quit 2003 second hand exposure: No alcohol intake: former details: quit 2003 substance use type: former substance user Date of last use: Used Marijuana since he was a teenager ROS ROS Narrative Negative except as documented in the interval HPI Constitutional Constitutional: Reports systems reviewed and no addt'l complaints, except as documented Eyes Eyes: Reports systems reviewed and no addt'l complaints, except as documented ENT HEENT: Reports systems reviewed and no addt'l complaints, except as documented Cardiovascular Cardiovascular: Reports systems reviewed and no addt'l complaints, except as documented Respiratory/Chest Respiratory/Chest: Reports systems reviewed and no addt'l complaints, except as documented Gastrointestinal Gastrointestinal: Reports systems reviewed and no addt'l complaints, except as documented Genitourinary Genitourinary: Reports systems reviewed and no addt'l complaints, except as documented Musculoskeletal Musculoskeletal: Reports systems reviewed and no addt'l complaints, except as documented Integumentary Integumentary: Reports systems reviewed and no addt'l complaints, except as documented Neurologic Neurologic: Reports systems reviewed and no addt'l complaints, except as documented Psychiatric Psychiatric: Reports systems reviewed and no addt'l complaints, except as documented Endocrine Endocrinology: Reports systems reviewed and no addt'l complaints, except as documented Hematologic/Lymphatic Hematologic/Lymphatic: Reports systems reviewed and no addt'l complaints, except as documented Allergic/Immunologic Allergic/Immunologic: Reports systems reviewed and no addt'l complaints, except as documented Physical Exam Narrative General: Alert, oriented, no apparent distress HEENT: Atraumatic, normocephalic Eyes: Anicteric, normal conjunctiva, extraocular movements grossly intact Neck: Supple Respiratory: Clear to auscultation bilaterally, normal respiratory effort Cardiovascular: Regular rate and rhythm GI: Soft, nontender, nondistended Extremities: No edema Musculoskeletal: Moving all extremities Neuro: No overt focal neurological deficits Skin: No rashes appreciated Psych: Cooperative Lab / Micro Data Result Diagrams: 11/24/22 04:25 11/24/22 04:25 Labs: Laboratory Results - last 24 hr 11/23/22 12:36: Blood Type O POSITIVE, Antibody Screen NEGATIVE, Crossmatch See Detail 11/23/22 20:29: POC Glucose 333 H 11/24/22 04:25: WBC 5.0, RBC 2.68 L, Hgb 8.2 L, Hct 24.1 L, MCV 89.9, MCH 30.6, MCHC 34.0, RDW Std Deviation 44.4 H, RDW Coeff of Ever 14.1, Plt Count 131 L, MPV 10.5, Immature Gran % (Auto) 2.400 H, Neut % (Auto) 59.0, Lymph % (Auto) 30.8, Dunn % (Auto) 6.4, Eos % (Auto) 1.0, Baso % (Auto) 0.4, Absolute Neuts (auto) 3.0, Absolute Lymphs (auto) 1.55, Nucleated RBC % 0 11/24/22 04:25: Sodium 136, Potassium 4.5, Chloride 110 H, Carbon Dioxide 19.0 L, Anion Gap 7, BUN 51 H, Creatinine 1.99 H, Estim Creat Clear Calc 41.06, Est GFR (MDRD) Af Amer 45 L, Est GFR (MDRD) Non-Af 37 L, BUN/Creatinine Ratio 25.6 H, Glucose 202 H, Calcium 8.0 L, Total Bilirubin 0.10 L, AST 8 L, ALT 14 L, Alkaline Phosphatase 60, Total Protein 5.6 L, Albumin 2.6 L, Globulin 3.0, Albumin/Globulin Ratio 0.9, TSH 0.35 L 11/24/22 04:25: Free T4 0.57 L 11/24/22 08:09: POC Glucose 172 H 11/24/22 11:18: POC Glucose 138 H 11/24/22 16:34: POC Glucose 165 H Micro: Microbiology 11/23/22 17:12 Stool Stool Occult Blood (YENNI) - Final Occult Blood Positive Rhythm Strip Rhythm Strip: Sinus Rhythm Rate: 72 Ectopy: None Assessment & Plan Assessment/Plan (1) Anemia: PLAN: Plan The differential diagnosis for acute on chronic blood loss would be GI blood loss secondary to peptic ulcer disease, angiodysplasia, telangiectasia, bleeding from colon cancer recurrence. He should undergo an upper endoscopy to evaluate his upper GI tract. He may need a colonoscopy depending on what the findings from the upper endoscopy. He was explained alternatives, risk, benefits any bleeding, and actually, sepsis, perforation, need for emergent surgery . He will have an ASA of 3. Charges/Coding Visit Charges Inpatient E&M: 03217 Init Hosp L3
[2022-11-24] VITALS (10 sets, daily range): BP systolic 112–167; BP diastolic 71–90; PULSE 63–69; RESP 14–18; TEMP 36.6–37.2; O2SAT 99–100; BMI 31.8; BMI 31.7
--- NOTE | 2022-11-24 | ESO_PTH ---
PATIENT: REGINALDO HUFFMAN LOC: [facility] U#:[id number] AGE/SX: 52/M ROOM: [facility] RE11/23/[address]: Dr. Maria Antonia Renae MD : 1970 BED: 1 DIS: 11/26/2022 SPEC #: [id number] RECD: 11/24/22 14:31 STATUS: ANTHONY REQ #: [id number] CEDRIC: 11/24/22 00:[address]: Aquiles Warren DEPT: SURGICAL PATHOLOGY RECD BY: Chago Barcenas ENTERED: 11/25/22 10:07 SP TYPE: ESOPH BX OTHR DR: MD Dr. Dutch Teresa MD Tissues: Esophagus, NOS Procedures: Special Stain Group II Surgery Specimen Level IV Alcian Blue/PAS (control) Comments: @ Ordering doctor for SUIV edited from to @ by RGOOD at 11/25/22 144 @ Submitting doctor edited from to @ by RGOOD at 11/25/22 1440 HEADER OPERATION[place] [place] with [place]hemostasis and biopsy PRE-OP DIAGNOSIS: Anemia, GI bleed TISSUE SUBMITTED: Distal esophagus biopsy MICROSCOPIC DIAGNOSIS Distal esophagus, biopsy: Gastroesophageal junctional mucosa with mild chronic inflammation. No evidence of goblet cell metaplasia. See comment. AM:rober 11/28/2022 COMMENT Alcian blue/PAS stain with matched control supports the above diagnosis. MICROSCOPIC DESCRIPTION Slides are reviewed. GROSS DESCRIPTION Received in fixative is one container labeled with the patient's name and designated distal esophagus biopsy. The specimen consists of one irregular fragment of light gunn soft tissue that measures 0.3 x 0.3 x 0.1 cm. The specimen is totally submitted in one cassette. / CHARANJIT:rober 11/25/2022 TC:3 CPT: 11041, 02630
[2022-11-24 04:45] LABS: Bedside Glucose 333 mg/dL (74-106)
[2022-11-24 05:01] LABS: Absolute Lymphocyte Count 1.55 X10^3/uL (0.83-4.51); Basophil# 0.02 X10^3/uL; Basophil% 0.4 % (0-1); Eosinophil# 0.05 X10^3/uL; Hematocrit 24.1 % (40-54); Hemoglobin 8.2 g/dL (13.0-16.5); Lymphocyte # 1.55 X10^3/ul (0.83-4.51); Lymphocyte % 30.8 % (19-41); Mean Corpuscular Hgb 30.6 pg (27.0-32.0); Mean Corpuscular Volume 89.9 fL (80-94); Mean Platelet Vol. 10.5 fl (6.2-12.0); Monocyte# 0.32 X10^3/uL; Monocyte% 6.4 % (0-10); NRBC Flagged by Analyzer 0 % (0-5); Neutrophil # 2.97 X10^3/uL (2.7-7.7); Platelet Count 131 K/mm3 (150-450); RBC Distribution Width CV 14.1 % (11.6-14.6); RBC Distribution Width SD 44.4 fl (35.1-43.9); Red Blood Count 2.68 M/mm3 (4.6-6.2)
[2022-11-24 05:32] LABS: ALB/GLOB Ratio 0.9 RATIO (0.9-2.4); AST(SGOT) 8 U/L (15-37); Alanine Aminotransfer ALT/SGPT 14 U/L (16-61); Albumin, Serum 2.6 g/dL (3.2-5.0); Alkaline Phosphatase 60 U/L (45-117); Anion Gap 7 (5-15); BUN 51 mg/dL (7-18); BUN/Creat Ratio 25.6 RATIO (10-20); Chloride 110 mmol/L (98-107); Creatinine, Serum 1.99 mg/dL (0.70-1.30); EST Glomerular Filtration Rate 37 mL/min (>60); Est Glom Filt Rate - Afr Amer 45 mL/min (>60); Estimated Creatinine Clearance 41.06 ml/min; Glucose 202 mg/dL (74-106); Potassium 4.5 mmol/L (3.5-5.1); Protein, Total 5.6 g/dL (6.4-8.2); Sodium Level 136 mmol/L (136-145); Thyroid Stim Hormone (TSH) 0.35 uIU/mL (0.358-3.74)
[2022-11-24] MEDS: 0.9% Normal Saline 1,000 ML 100 ML IV (06:19)
[2022-11-24 06:42] LABS: T4 Free Direct 0.57 ng/dL (0.76-1.46)
[2022-11-24] MEDS: Lisinopril 20 MG Tablet PO (08:12)
[2022-11-24] MEDS: ARIPiprazole 2 MG Tablet PO (08:12)
[2022-11-24] MEDS: carBAMazepine 200 MG Tablet 600 MG PO ×2 (08:12→16:58)
[2022-11-24] MEDS: Atenolol 25 MG Tablet PO ×2 (08:12→21:21)
[2022-11-24] MEDS: Sertraline 100 MG Tablet PO (08:12)
[2022-11-24 08:40] LABS: Bedside Glucose 172 mg/dL (74-106)
--- NOTE | 2022-11-24 09:29 | PCM.PN.HOSP ---
Reason for Visit Reason for Visit: Diagnoses Syncope and collapse (11/23/22) Subjective Subjective Still occasionally slightly dizzy but feels significantly better than yesterday, had a bowel movement overnight with no gross blood. Denied other significant complaints this morning Objective Data Objective Data Vital Signs: Vital Signs Temp Pulse Resp BP Pulse Ox O2 Del Method 98.9 F 68 14 161/90 H 100 Room Air 11/24/22 08:02 11/24/22 08:02 11/24/22 08:02 11/24/22 08:02 11/24/22 08:02 11/24/22 08:14 Oxygen Delivery Method Room Air Weight: 95.1 kg Body Mass Index (BMI) 31.8 Intake & Output: Intake and Output for Last 24 Hours 11/22/22 11/23/22 11/24/22 23:59 23:59 23:59 Intake Total 1220 / 1220 1000 / 1000 Balance 1220 / 1220 1000 / 1000 Lab / Micro Data Result Diagrams: 11/24/22 04:25 11/24/22 04:25 Labs: Laboratory Results - last 24 hr 11/23/22 11:37: WBC 4.6, RBC 2.07 L, Hgb 6.3 L, Hct 19.0 L, MCV 91.8, MCH 30.4, MCHC 33.2, RDW Std Deviation 43.8, RDW Coeff of Ever 13.6, Plt Count 154, MPV 10.8, Immature Gran % (Auto) 1.300 H, Neut % (Auto) 65.2, Lymph % (Auto) 25.6, [place] % (Auto) 6.0, Eos % (Auto) 1.5, Baso % (Auto) 0.4, Absolute Neuts (auto) 3.0, Absolute Lymphs (auto) 1.19, Nucleated RBC % 0 11/23/22 11:37: Sodium 134 L, Potassium 5.1, Chloride 108 H, Carbon Dioxide 21.0, Anion Gap 5, BUN 44 H, Creatinine 2.27 H, Estim Creat Clear Calc 35.99, Est GFR (MDRD) Af Amer 39 L, Est GFR (MDRD) Non-Af 32 L, BUN/Creatinine Ratio 19.4, Glucose 336 H, Calcium 7.3 L, Troponin I High Sens 13 11/23/22 12:36: Blood Type O POSITIVE, Antibody Screen NEGATIVE, Crossmatch See Detail 11/23/22 17:04: POC Glucose 294 H 11/23/22 20:29: POC Glucose 333 H 11/24/22 04:25: WBC 5.0, RBC 2.68 L, Hgb 8.2 L, Hct 24.1 L, MCV 89.9, MCH 30.6, MCHC 34.0, RDW Std Deviation 44.4 H, RDW Coeff of Ever 14.1, Plt Count 131 L, MPV 10.5, Immature Gran % (Auto) 2.400 H, Neut % (Auto) 59.0, Lymph % (Auto) 30.8, [place] % (Auto) 6.4, Eos % (Auto) 1.0, Baso % (Auto) 0.4, Absolute Neuts (auto) 3.0, Absolute Lymphs (auto) 1.55, Nucleated RBC % 0 11/24/22 04:25: Sodium 136, Potassium 4.5, Chloride 110 H, Carbon Dioxide 19.0 L, Anion Gap 7, BUN 51 H, Creatinine 1.99 H, Estim Creat Clear Calc 41.06, Est GFR (MDRD) Af Amer 45 L, Est GFR (MDRD) Non-Af 37 L, BUN/Creatinine Ratio 25.6 H, Glucose 202 H, Calcium 8.0 L, Total Bilirubin 0.10 L, AST 8 L, ALT 14 L, Alkaline Phosphatase 60, Total Protein 5.6 L, Albumin 2.6 L, Globulin 3.0, Albumin/Globulin Ratio 0.9, TSH 0.35 L 11/24/22 04:25: Free T4 0.57 L 11/24/22 08:09: POC Glucose 172 H Micro: Microbiology 11/23/22 17:12 Stool Stool Occult Blood (YENNI) - Final Occult Blood Positive Radiography Diagnostic Testing: Radiology Impression Chest X-Ray 11/23/22 11:29 IMPRESSION: Stable chest no visualized focal infiltrate. Electronically Signed: Irma Cervantes MD at 12:49 EDT , Brain CT 11/23/22 13:03 IMPRESSION: Chronic involutional changes of the brain. Electronically Signed: Steve Holguin MD at 14:08 EDT , Echocardiogram 11/23/22 13:03 Interpretation Summary Normal LV size. Left ventricular systolic function is normal. The estimated ejection fraction is 60 %. Mild concentric left ventricular hypertrophy. Contrast injection was performed. Ordering Physician: Maria Antonia Renae Referring Physician: CHRISS CRUZ Performed By: Aleyda Glass RDCS Rhythm Strip Rhythm Strip: Sinus Rhythm Rate: 72 Ectopy: None Physical Exam Narrative General: Alert, oriented, no apparent distress HEENT: Atraumatic, normocephalic Eyes: Anicteric, normal conjunctiva, extraocular movements grossly intact Neck: Supple Respiratory: Clear to auscultation bilaterally, normal respiratory effort Cardiovascular: Regular rate and rhythm GI: Soft, nontender, nondistended Extremities: No edema Musculoskeletal: Moving all extremities Neuro: No overt focal neurological deficits Skin: No rashes appreciated Psych: Cooperative Assessment & Plan Assessment/Plan (1) Syncope: PLAN: Plan #Sycnopal episode -admit to telemetry -Suspect orthostatic secondary to low hemoglobin -We will transfuse 2 unit of packed red blood cells as well as hydration -EGK NSR, no blocks -CT head ordered -orthostatic vital signs +, pt quite symptomatic when standing and had to sit back down -will obtain echo -Holter monitor on d/c if no arrhythmia detected -EEG ordered given how long patient was down, though less likely seizure with patient on Tegretol -Hold Lasix and doxazosin -11/24: Orthostatic positive on floor, FOBT was positive. GI consulted. Receiving fluids, received 2 units packed red blood cells and hemoglobin responded. #Acute on Chronic Anemia/history of colon cancer status postresection and chemoradiation in 2013 -IVPPI -stool occult -type and cross- transfuse 2u prbc -Has had chronic downtrend in his hemoglobin but reports no recent upper or lower endoscopies -If FOBT positive will consult GI -Follows with Dr. Ibarra as an outpatient and was recently started on an injection to help his hemoglobin -11/24: FOBT positive, GI consulted, continue PPI IV #DMII -glucose checks and SSI -Long-acting insulin continued at slightly lower dose as well as his 4 times daily lispro at lower dose in addition to the sliding scale #CKD stage IIIb -Appears to be close to baseline -Follows with Dr. Rm as an outpatient #Depression -Continue Abilify and Tegretol #DVT ppx: SCDs Maria Antonia Renae MD Time spent in the patient's overall evaluation,decision-making process, review of diagnostic data, adjustment of management, discussion with other providers, nursing nursing and ancillary staff involved in patient's care documentation, 30 minutes Charges/Coding Visit Charges Inpatient E&M: 70690 Subs Hosp L2
--- NOTE | 2022-11-24 10:10 | TELEMED_ITS ---
[facility] Telemed has confirmed receipt of a request for visit. This document confirms receipt of the order initiating the consult. To find the results of the consultation, please view the patient's reports for the scanned Telemed Consult.
--- NOTE | 2022-11-24 10:50 | CASEMGMT ---
RN CM Face to Face with patient for initial transition planning/care coordination assessment. RN CM introduced self and role at [facility]. Patient lying in bed, alert and oriented. Patient willing to participate in assessment and is able to answer all questions appropriately. Care providers, pharmacy, and demographics verified. Patient wishes to discharge home, denies need for home health at this time. Patient states he has no further needs or concerns at this time. CM to follow for discharge planning needs that may arise. PCP: Trevin Specialists: Rusty, Neuro; Stacey, oncologist; Divina, program project analyst; Jag nephkrystle Preferred Pharmacy: [facility] Insurance: [employer] Prescription Benefit: yes Living Will/HPOA: yes, mother Elizabeth Chen LNOK: mother Living Arrangements: Patient lives with mother in single story home with 1 step to enter. Patient is independent at home. Transportation: self, mother DME/HHC: Patient has cane and glucometer at home. No previous HHC or SNF Disposition Plan: Patient to discharge home with family support and follow-up plans in place. Brea VASQUEZ, RN, CM
[2022-11-24 11:40] LABS: Bedside Glucose 138 mg/dL (74-106)
[2022-11-24] MEDS: Lactated Ringers 1,000 ML 15 ML IV (12:20)
--- NOTE | 2022-11-24 13:26 | OP.CCLET_ITS ---
11/24/2022 Dutch Zhong Re : Upper GI endoscopy procedure for Raleigh Bates Trevin This procedure was performed on October. My impressions and recommendations are as follows: Impressions : - Z-line irregular, 37 cm from the incisors. Biopsied. - Type 1 isolated gastric varices (IGV1, varices located in the fundus), without bleeding. - A single bleeding angiodysplastic lesion in the stomach. Treated with a heater probe. - Normal first portion of the duodenum. Recommendations : - Discharge patient to home. - Resume previous diet. - Continue present medications. - EUS for the distal esophageal mass - CT abdomen & Pelvis to look for cirrhosis My findings are described in the full procedure note, which is enclosed. If I can be of further assistance, please feel free to contact me at . Sincerely, Aquiles Friend, 11/24/2022 1:25:55 PM This report has been signed electronically.
--- NOTE | 2022-11-24 13:26 | OP.EGD_ITS ---
Patient Name: Raleigh Chen Procedure Date: 11/24/2022 12:55 PM Date of : 1970 Age: 52 Procedure: Upper GI endoscopy Indications: Iron deficiency anemia Providers: Aquiles Warren DO Medicines: Monitored Anesthesia Care Patient Profile: This is a 52 year old male. Refer to note in patient chart for documentation of history and physical. Patient has symptoms. Complications: No immediate complications. Procedure: Pre-Anesthesia Assessment: - Prior to the procedure, a History and Physical was performed, and patient medications and allergies were reviewed. The patient is competent. The risks and benefits of the procedure and the sedation options and risks were discussed with the patient. All questions were answered and informed consent was obtained. Patient identification and proposed procedure were verified by the physician in the pre-procedure area. Mental Status Examination: alert and oriented. Airway Examination: normal oropharyngeal airway and neck mobility. Respiratory Examination: clear to auscultation. CV Examination: normal. Prophylactic Antibiotics: The patient does not require prophylactic antibiotics. Prior Anticoagulants: The patient has taken no previous anticoagulant or antiplatelet agents. After reviewing the risks and benefits, the patient was deemed in satisfactory condition to undergo the procedure. The anesthesia plan was to use monitored anesthesia care (MAC). Immediately prior to administration of medications, the patient was re-assessed for adequacy to receive sedatives. The heart rate, respiratory rate, oxygen saturations, blood pressure, adequacy of pulmonary ventilation, and response to care were monitored throughout the procedure. The physical status of the patient was re-assessed after the procedure. After obtaining informed consent, the endoscope was passed under direct vision. Throughout the procedure, the patient's blood pressure, pulse, and oxygen saturations were monitored continuously. The gastroscope was introduced through the mouth, and advanced to the second part of duodenum. The upper GI endoscopy was accomplished without difficulty. The patient tolerated the procedure well. Scope In: 1:05:24 PM Scope Out: 1:12:36 PM Total Procedure Duration Time 0 hours 7 minutes 12 seconds Findings: The Z-line was irregular and was found 37 cm from the incisors. Biopsies were taken with a cold forceps for histology. Biopsies were taken with a cold forceps for histology. Verification of patient identification for the specimen was done. Estimated blood loss was minimal. Type 1 isolated gastric varices (IGV1, varices located in the fundus) with no bleeding were found in the cardia. There were no stigmata of recent bleeding. They were 5 mm in largest diameter. A single 5 mm bleeding angiodysplastic lesion was found in the gastric body. Coagulation for hemostasis using heater probe was successful. Estimated blood loss was minimal. The first portion of the duodenum was normal. Impression: - Z-line irregular, 37 cm from the incisors. Biopsied. - Type 1 isolated gastric varices (IGV1, varices located in the fundus), without bleeding. - A single bleeding angiodysplastic lesion in the stomach. Treated with a heater probe. - Normal first portion of the duodenum. Recommendation: - Discharge patient to home. - Resume previous diet. - Continue present medications. - EUS for the distal esophageal mass - CT abdomen & Pelvis to look for cirrhosis Procedure Code(s): --- Professional --- 17286, 59, Esophagogastroduodenoscopy, flexible, transoral; with control of bleeding, any method 43761, Esophagogastroduodenoscopy, flexible, transoral; with biopsy, single or multiple CPT copyright 2017 [employer]. All rights reserved. The codes documented in this report are preliminary and upon ship scraper review may be revised to meet current compliance requirements. Aquiles Warren DO 11/24/2022 1:25:55 PM This report has been signed electronically. Number of Addenda: 0 Note Initiated On: 11/24/2022 12:55 PM
[2022-11-24] MEDS: Glucerna Shake 120 ML LIQUID PO ×3 (14:58→21:25)
[2022-11-24] MEDS: Insulin Lispro 100 UNIT/ML INSULN.PEN SC ×2 (16:52→21:18)
[2022-11-24] MEDS: Insulin Lispro 100 UNIT/ML INSULN.PEN 18 UNIT SC ×2 (16:53→21:19)
[2022-11-24 16:55] LABS: Bedside Glucose 165 mg/dL (74-106)
[2022-11-24] MEDS: Acetaminophen 325 MG Tablet 650 MG PO (21:16)
[2022-11-24] MEDS: Atorvastatin Calcium 80 MG Tablet PO (21:18)
[2022-11-24] MEDS: Insulin Glargine-YFGN 100 UNIT/ML Pen 40 UNIT SC (21:19)
[2022-11-25] VITALS (14 sets, daily range): BP systolic 122–179; BP diastolic 73–92; PULSE 66–79; RESP 12–18; TEMP 36.7–37.1; O2SAT 95–100; BMI 32.3
[2022-11-25 01:31] LABS: Bedside Glucose 194 mg/dL (74-106)
[2022-11-25 06:01] LABS: Absolute Lymphocyte Count 1.56 X10^3/uL (0.83-4.51); Absolute Neutrophil Count 3.9 X10^3/uL (2.0-7.7); Basophil# 0.03 X10^3/uL; Basophil% 0.5 % (0-1); Eosinophils% 1.7 % (0-5); Hematocrit 25.4 % (40-54); Hemoglobin 8.4 g/dL (13.0-16.5); Lymphocyte # 1.56 X10^3/ul (0.83-4.51); Lymphocyte % 26.4 % (19-41); Mean Corp Hgb Conc 33.1 g/dL (32-36); Mean Corpuscular Hgb 30.3 pg (27.0-32.0); Mean Corpuscular Volume 91.7 fL (80-94); Mean Platelet Vol. 10.4 fl (6.2-12.0); Monocyte# 0.23 X10^3/uL; Monocyte% 3.9 % (0-10); NRBC Flagged by Analyzer 0 % (0-5); Platelet Count 177 K/mm3 (150-450); RBC Distribution Width CV 14.7 % (11.6-14.6); Red Blood Count 2.77 M/mm3 (4.6-6.2); White Blood Count 5.9 K/mm3 (4.4-11.0)
[2022-11-25 07:05] LABS: ALB/GLOB Ratio 0.8 RATIO (0.9-2.4); AST(SGOT) 12 U/L (15-37); Alanine Aminotransfer ALT/SGPT 16 U/L (16-61); Albumin, Serum 2.8 g/dL (3.2-5.0); Alkaline Phosphatase 63 U/L (45-117); Anion Gap 6 (5-15); BUN 36 mg/dL (7-18); BUN/Creat Ratio 19.9 RATIO (10-20); Calcium,Total 8.6 mg/dL (8.5-10.1); Chloride 109 mmol/L (98-107); Creatinine, Serum 1.81 mg/dL (0.70-1.30); EST Glomerular Filtration Rate 42 mL/min (>60); Est Glom Filt Rate - Afr Amer 51 mL/min (>60); Estimated Creatinine Clearance 45.14 ml/min; Globulin 3.3 g/dL (2.2-4.2); Glucose 231 mg/dL (74-106); Potassium 4.4 mmol/L (3.5-5.1); Protein, Total 6.1 g/dL (6.4-8.2); Sodium Level 136 mmol/L (136-145)
--- NOTE | 2022-11-25 07:36 | US_ITS ---
STUDY: ABDOMINAL ULTRASOUND - RIGHT UPPER QUADRANT REASON FOR VISIT: Male, 52 years old assess for cirrhosis TECHNIQUE: Ultrasound evaluation of the right upper quadrant was performed with real-time and static chua-scale imaging. TECHNICAL QUALITY: Limited. Examination limited by bowel gas. COMPARISON: None. FINDINGS: Liver: The liver is enlarged and measures 19.2 cm. There is a heterogeneous echogenicity of the liver. The bile ducts are within normal limits. There is hepatic color flow. The direction of portal flow is hepatopetal. There is no demonstrated mass lesion. Gallbladder: Normal distended gallbladder. The gallbladder wall measures 2.3 mm. There is a negative sonographic Seo''s sign. There is no pericholecystic fluid. There are multiple echogenic structures within the gallbladder, consistent with multiple gallstones. Common Bile Duct (C.B.D.): The common bile duct measures 5.8 mm. Pancreas: There is nonvisualization of the pancreas due to overlying bowel gas. There is normal echogenicity of the pancreas. There is no demonstrated pancreatic mass or cyst. Right Kidney: Normal size of the right kidney. The right kidney measures 11.3 cm x 7.1 cm x 5.6 cm. Normal renal cortex. The right cortex measures 1.6 cm. There is a 1 cm x 0.9 cm x 0.7 cm cyst. There is no right hydronephrosis. US/Liver IMPRESSION: Hepatomegaly and heterogeneous echotexture of the liver. Multiple gallstones. Small right renal cyst. Electronically Signed: Steve Holguin MD at 14:48 EDT ,
[2022-11-25 08:26] LABS: Bedside Glucose 201 mg/dL (74-106)
--- NOTE | 2022-11-25 08:44 | PN.HOSP_ITS ---
Reason for Visit Reason for Visit: Diagnoses Anemia, unspecified (11/23/22) Syncope and collapse (11/23/22) Personal history of other specified conditions (11/23/22) Subjective Subjective Continues to be dizzy and have symptomatic orthostatic hypotension. No diarrhea, does feel better than he had but still having significant difficulties Objective Data Objective Data Vital Signs: Vital Signs Temp Pulse Resp BP Pulse Ox O2 Del Method 98.1 F 66 16 179/83 H 100 Room Air 11/25/22 03:00 11/25/22 08:23 11/25/22 03:00 11/25/22 08:23 11/25/22 03:00 11/25/22 03:00 Oxygen Delivery Method Room Air Weight: 97 kg Body Mass Index (BMI) 32.3 Intake & Output: Intake and Output for Last 24 Hours 11/23/22 11/24/22 11/25/22 23:59 23:59 23:59 Intake Total 1220 / 1220 3188.33 / 3188.33 Output Total 800 / 800 Balance 1220 / 1220 2388.33 / 2388.33 Lab / Micro Data Result Diagrams: 11/25/22 04:38 11/25/22 04:38 Labs: Laboratory Results - last 24 hr 11/24/22 11:18: POC Glucose 138 H 11/24/22 16:34: POC Glucose 165 H 11/24/22 21:15: POC Glucose 194 H 11/25/22 04:38: WBC 5.9, RBC 2.77 L, Hgb 8.4 L, Hct 25.4 L, MCV 91.7, MCH 30.3, MCHC 33.1, RDW Std Deviation 48.0 H, RDW Coeff of Ever 14.7 H, Plt Count 177, MPV 10.4, Immature Gran % (Auto) 1.500 H, Neut % (Auto) 66.0, Lymph % (Auto) 26.4, [place] % (Auto) 3.9, Eos % (Auto) 1.7, Baso % (Auto) 0.5, Absolute Neuts (auto) 3.9, Absolute Lymphs (auto) 1.56, Nucleated RBC % 0 11/25/22 04:38: Sodium 136, Potassium 4.4, Chloride 109 H, Carbon Dioxide 21.0, Anion Gap 6, BUN 36 H, Creatinine 1.81 H, Estim Creat Clear Calc 45.14, Est GFR (MDRD) Af Amer 51 L, Est GFR (MDRD) Non-Af 42 L, BUN/Creatinine Ratio 19.9, Glucose 231 H, Calcium 8.6, Total Bilirubin 0.10 L, AST 12 L, ALT 16, Alkaline Phosphatase 63, Total Protein 6.1 L, Albumin 2.8 L, Globulin 3.3, Al bumin/Globulin Ratio 0.8 L 11/25/22 07:59: POC Glucose 201 H Micro: Microbiology 11/23/22 17:12 Stool Stool Occult Blood (YENNI) - Final Occult Blood Positive Rhythm Strip Rhythm Strip: Sinus Rhythm Rate: 72 Ectopy: None Physical Exam Narrative General: Alert, oriented, no apparent distress HEENT: Atraumatic, normocephalic Eyes: Anicteric, normal conjunctiva, extraocular movements grossly intact Neck: Supple Respiratory: Clear to auscultation bilaterally, normal respiratory effort Cardiovascular: Regular rate and rhythm GI: Soft, nontender, nondistended Extremities: No edema Musculoskeletal: Moving all extremities Neuro: No overt focal neurological deficits Skin: No rashes appreciated Psych: Cooperative Assessment & Plan Assessment/Plan (1) Syncope: PLAN: Plan #Sycnopal episode/positive orthostatic blood pressure -admit to telemetry -Suspect orthostatic secondary to low hemoglobin -We will transfuse 2 unit of packed red blood cells as well as hydration -EGK NSR, no blocks -CT head ordered -orthostatic vital signs +, pt quite symptomatic when standing and had to sit back down -will obtain echo -Holter monitor on d/c if no arrhythmia detected -EEG ordered given how long patient was down, though less likely seizure with patient on Tegretol -Hold Lasix and doxazosin -11/24: Orthostatic positive on floor, FOBT was positive. GI consulted. Receiving fluids, received 2 units packed red blood cells and hemoglobin responded. -11/25: Had EGD and had 1 angiodysplastic lesion that was treated. Also had grade 1 esophageal varices and it was recommended to look at liver. Patient still orthostatic positive and symptomatic upon standing. TSH and free T4 sug gestive of central hypothyroidism, will MRI pituitary and obtain additional lab work-up to assess for other endocrine abnormalities that may be causing or contributing to this especially as patient does not seem volume depleted, hemoglobin is stable, and he has supine hypertension. We will add DIOR matute. Could be contributed to by Abilify though on very low dose, also could be due to autonomic instability due to longstanding diabetes. If work-up negative may need further outpatient evaluation and management. Remains on telemetry and there is no identifiable cause or contributor based on heart rate and rhythm. EEG was negative #Grade 1 esophageal varices -Already obtaining MRI of the head so will add MRI abdomen to evaluate liver, cannot do CT with contrast safely given kidney function #Acute on Chronic Anemia/history of colon cancer status postresection and chemoradiation in 2013 -IVPPI -stool occult -type and cross- transfuse 2u prbc -Has had chronic downtrend in his hemoglobin but reports no recent upper or lower endoscopies -If FOBT positive will consult GI -Follows with Dr. Ibarra as an outpatient and was recently started on an injection to help his hemoglobin -11/24: FOBT positive, GI consulted, continue PPI IV -11/25: EGD 11/24 demonstrated an irregular Z-line which was biopsied and type I isolated gastric varices without bleeding, liver imaging ordered #DMII -glucose checks and SSI -Long-acting insulin continued at slightly lower dose as well as his 4 times daily lispro at lower dose in addition to the sliding scale #CKD stage IIIb -Appears to be close to baseline -Follows with Dr. Rm as an outpatient #Depression -Continue Abilify and Tegretol -We will obtain Tegretol levels #DVT ppx: SCDs Maria Antonia Renae MD Time spent in the patient's overall evaluation,decision-making process, review of diagnostic data, adjustment of management, discussion with other providers, nursing nursing and ancillary staff involved in patient's care documentation, 30 minutes Charges/Coding Visit Charges Inpatient E&M: 01015 Subs Hosp L2
[2022-11-25 09:29] LABS: Free T3 1.9 pg/mL (2.18-3.98)
[2022-11-25] MEDS: carBAMazepine 200 MG Tablet 600 MG PO ×2 (10:15→21:14)
[2022-11-25] MEDS: ARIPiprazole 2 MG Tablet PO (10:16)
[2022-11-25] MEDS: Pantoprazole Sodium 40 MG Tablet PO (10:16)
[2022-11-25] MEDS: Sertraline 100 MG Tablet PO (10:17)
[2022-11-25] MEDS: Atenolol 25 MG Tablet PO ×2 (10:17→21:15)
[2022-11-25] MEDS: Lisinopril 20 MG Tablet PO (10:17)
[2022-11-25] MEDS: Insulin Lispro 100 UNIT/ML INSULN.PEN 18 UNIT SC ×4 (10:18→21:16)
[2022-11-25] MEDS: Insulin Lispro 100 UNIT/ML INSULN.PEN SC ×4 (10:18→21:16)
[2022-11-25] MEDS: Meclizine HCl 25 MG Tablet PO (10:24)
[2022-11-25] MEDS: Glucerna Shake 120 ML LIQUID PO ×3 (10:24→21:23)
[2022-11-25] MEDS: Insulin Glargine-YFGN 100 UNIT/ML Pen 40 UNIT SC ×2 (10:24→21:15)
[2022-11-25 12:36] LABS: Bedside Glucose 278 mg/dL (74-106)
--- NOTE | 2022-11-25 14:17 | MRI_ITS ---
EXAM: MR HEAD WITHOUT AND WITH INTRAVENOUS CONTRAST CLINICAL INDICATION: Central hypothyroidism, eval pituitary gland -- PITUITARY PROTOCOL TECHNIQUE: Multiplanar and multisequence MR images of the brain were obtained without and with intravenous contrast. This report was created using [email or web address] report [employer] technology. CONTRAST: 19ml Clariscan IV. COMPARISON: Noncontrast head CT 11/23/2022. MR brain 11/13/2018. FINDINGS: BRAIN AND EXTRA-AXIAL SPACES: Unremarkable. No intra- or extra-axial hemorrhage. No evidence of acute infarct. No intracranial mass or mass effect. There is preservation of the chua/white matter interface. Posterior fossa structures are unremarkable. Ventricles are appropriate for age. No hydrocephalus. Basal cisterns are patent. SELLA: Unremarkable. Normal pituitary. AUDITORY SYSTEM: Unremarkable. The internal auditory canals are patent. BONES/JOINTS: Unremarkable. No discrete lytic or blastic abnormalities. SINUSES: Unremarkable as visualized. Clear. MASTOID AIR CELLS: Unremarkable as visualized. Clear. ORBITS: Unremarkable as visualized. Both globes, extraocular muscles, optic nerves and retrobulbar fat appear unremarkable. VASCULATURE: Unremarkable as visualized. Normal flow voids in the major intracranial circulation. OTHER FINDINGS: Moderate generalized atrophy. MRI/Brain W/WO Contrast IMPRESSION: 1. Normal pituitary. 2. Moderate generalized atrophy. Electronically Signed: Oswald Hamilton MD at 5:35 EDT ,
[2022-11-25] MEDS: LORazepam 2 MG/ML Syringe 1 MG IV (14:45)
--- NOTE | 2022-11-25 15:17 | MRI_ITS ---
EXAM: MR ABDOMEN WITHOUT AND WITH INTRAVENOUS CONTRAST CLINICAL INDICATION: Eval for liver pathology TECHNIQUE: Multiplanar and multisequence MR images of the abdomen without and with intravenous contrast. This report was created using [employer] report generation technology. CONTRAST: IV 19ML Clariscan COMPARISON: Liver ultrasound 11/25/2022 FINDINGS: LOWER THORAX: Normal. No pleural effusion. LIVER: Liver measures 20 cm in cephalocaudad dimension. GALLBLADDER AND BILE DUCTS: Gallbladder is filled with medium size gallstones. No gallbladder distention or wall edema. No intra- or extrahepatic biliary ductal dilation. PANCREAS: Normal. No focal cystic or solid mass. SPLEEN: Spleen is mildly enlarged measuring 14 cm in length. ADRENALS: Normal. No nodules. KIDNEYS AND URETERS: Small bilateral renal cysts. Normal renal size and position. No hydronephrosis. INTRAPERITONEAL SPACE: Normal. No ascites or other fluid collection. No free air. VASCULATURE: Normal. Abdominal aorta is non-dilated. LYMPH NODES: No enlarged lymph nodes. MRI/MRI Abd WITH and W/O Contrast IMPRESSION: 1. Mild hepatosplenomegaly. 2. No focal liver lesion. 3. Cholelithiasis. Electronically Signed: Nasir Jolly MD at 12:11 EDT ,
[2022-11-25 17:20] LABS: Bedside Glucose 242 mg/dL (74-106)
[2022-11-25] MEDS: Atorvastatin Calcium 80 MG Tablet PO (21:15)
[2022-11-25 21:31] LABS: Carbamazepine (Tegretol) 7.3 ug/mL (4.0-12.0)
[2022-11-25 22:26] LABS: Bedside Glucose 201 mg/dL (74-106)
[2022-11-26 03:10] VITALS: BP 165/89; PULSE 72; RESP 16; TEMP 36.9; O2SAT 98
[2022-11-26 06:00] VITALS: BMI 32.2
[2022-11-26 06:16] VITALS: BP 147/91; BP 149/83; BP 161/85; PULSE 70; PULSE 75; PULSE 76
[2022-11-26] MEDS: Lactated Ringers 500 ML 999 ML IV (06:39)
[2022-11-26] MEDS: 0.9% Saline Lock 10 ML Syringe IV ×2 (06:40→15:42)
[2022-11-26 06:41] VITALS: BP 161/85; PULSE 70; RESP 16; TEMP 36.3; O2SAT 97
[2022-11-26 08:35] LABS: Absolute Neutrophil Count 3.2 X10^3/uL (2.0-7.7); Basophil# 0.02 X10^3/uL; Basophil% 0.4 % (0-1); Eosinophil# 0.08 X10^3/uL; Eosinophils% 1.5 % (0-5); Hematocrit 23.7 % (40-54); Hemoglobin 7.8 g/dL (13.0-16.5); Lymphocyte % 30.7 % (19-41); Mean Corp Hgb Conc 32.9 g/dL (32-36); Mean Corpuscular Hgb 30.1 pg (27.0-32.0); Mean Corpuscular Volume 91.5 fL (80-94); Mean Platelet Vol. 10.7 fl (6.2-12.0); Monocyte# 0.31 X10^3/uL; NRBC Flagged by Analyzer 0 % (0-5); Neutrophil # 3.16 X10^3/uL (2.7-7.7); Neutrophil % 60.6 % (47-70); Platelet Count 159 K/mm3 (150-450); RBC Distribution Width CV 14.6 % (11.6-14.6); RBC Distribution Width SD 46.5 fl (35.1-43.9); Red Blood Count 2.59 M/mm3 (4.6-6.2); White Blood Count 5.2 K/mm3 (4.4-11.0)
[2022-11-26 09:07] LABS: ALB/GLOB Ratio 0.8 RATIO (0.9-2.4); AST(SGOT) 13 U/L (15-37); Alanine Aminotransfer ALT/SGPT 16 U/L (16-61); Albumin, Serum 2.7 g/dL (3.2-5.0); Alkaline Phosphatase 64 U/L (45-117); Anion Gap 6 (5-15); BUN 30 mg/dL (7-18); BUN/Creat Ratio 16.1 RATIO (10-20); Calcium,Total 8.5 mg/dL (8.5-10.1); Chloride 108 mmol/L (98-107); Creatinine, Serum 1.86 mg/dL (0.70-1.30); EST Glomerular Filtration Rate 40 mL/min (>60); Est Glom Filt Rate - Afr Amer 49 mL/min (>60); Estimated Creatinine Clearance 43.92 ml/min; Globulin 3.4 g/dL (2.2-4.2); Glucose 228 mg/dL (74-106); Potassium 4.5 mmol/L (3.5-5.1); Protein, Total 6.1 g/dL (6.4-8.2); Sodium Level 135 mmol/L (136-145)
[2022-11-26 09:09] VITALS: BP 150/82; PULSE 77; RESP 16; TEMP 37.5; O2SAT 100
[2022-11-26] MEDS: Insulin Lispro 100 UNIT/ML INSULN.PEN SC ×2 (09:17→12:31)
[2022-11-26] MEDS: Insulin Lispro 100 UNIT/ML INSULN.PEN 18 UNIT SC ×2 (09:17→12:30)
[2022-11-26] MEDS: Insulin Glargine-YFGN 100 UNIT/ML Pen 40 UNIT SC (09:17)
[2022-11-26] MEDS: Glucerna Shake 120 ML LIQUID PO (09:18)
[2022-11-26] MEDS: Pantoprazole Sodium 40 MG Tablet PO (09:19)
[2022-11-26] MEDS: ARIPiprazole 2 MG Tablet PO (09:19)
[2022-11-26] MEDS: carBAMazepine 200 MG Tablet 600 MG PO (09:20)
[2022-11-26] MEDS: Lisinopril 20 MG Tablet PO (09:21)
[2022-11-26] MEDS: Sertraline 100 MG Tablet PO (09:21)
[2022-11-26] MEDS: Atenolol 25 MG Tablet PO (09:21)
[2022-11-26] MEDS: Acetaminophen 325 MG Tablet 650 MG PO (09:29)
[2022-11-26 10:16] LABS: Bedside Glucose 216 mg/dL (74-106)
--- NOTE | 2022-11-26 11:37 | PCM.PROGNOTE ---
Subjective Subjective Patient does not have any abdominal pain. He has some mild nausea. He denies any chest pain or shortness of breath. Objective Data Objective Data Vital Signs: Vital Signs Temp Pulse Resp BP Pulse Ox O2 Del Method 99.5 F H 77 16 150/82 H 100 Room Air 11/26/22 09:09 11/26/22 09:09 11/26/22 09:09 11/26/22 09:09 11/26/22 09:09 11/26/22 09:09 Oxygen Delivery Method Room Air Weight: 212 lb 8.41 oz Body Mass Index (BMI) 32.2 Intake & Output: Intake and Output for Last 24 Hours 11/24/22 11/25/22 11/26/22 23:59 23:59 23:59 Intake Total 3188.33 / 3188.33 811.25 / 811.25 800 / 800 Output Total 800 / 800 Balance 2388.33 / 2388.33 811.25 / 811.25 800 / 800 Lab / Micro Data Result Diagrams: 11/26/22 07:09 11/26/22 07:09 Labs: Laboratory Results - last 24 hr 11/25/22 12:12: POC Glucose 278 H 11/25/22 16:55: POC Glucose 242 H 11/25/22 20:59: Carbamazepine 7.3 11/25/22 21:11: POC Glucose 201 H 11/26/22 07:09: WBC 5.2, RBC 2.59 L, Hgb 7.8 L, Hct 23.7 L, MCV 91.5, MCH 30.1, MCHC 32.9, RDW Std Deviation 46.5 H, RDW Coeff of Ever 14.6, Plt Count 159, MPV 10.7, Immature Gran % (Auto) 0.800, Neut % (Auto) 60.6, Lymph % (Auto) 30.7, [place] % (Auto) 6.0, Eos % (Auto) 1.5, Baso % (Auto) 0.4, Absolute Neuts (auto) 3.2, Absolute Lymphs (auto) 1.60, Nucleated RBC % 0 11/26/22 07:09: Sodium 135 L, Potassium 4.5, Chloride 108 H, Carbon Dioxide 21.0, Anion Gap 6, BUN 30 H, Creatinine 1.86 H, Estim Creat Clear Calc 43.92, Est GFR (MDRD) Af Amer 49 L, Est GFR (MDRD) Non-Af 40 L, BUN/Creatinine Ratio 16.1, Glucose 228 H, Calcium 8.5, Total Bilirubin 0.20, AST 13 L, ALT 16, Alkaline Phosphatase 64, Total Protein 6.1 L, Albumin 2.7 L, Globulin 3.4, Albumin/Globulin Ratio 0.8 L 11/26/22 09:12: POC Glucose 216 H Micro: Microbiology 11/23/22 17:12 Stool Stool Occult Blood (YENNI) - Final Occult Blood Positive Radiography Diagnostic Testing: Radiology Impression Liver Ultrasound 11/25/22 07:36 IMPRESSION: Hepatomegaly and heterogeneous echotexture of the liver. Multiple gallstones. Small right renal cyst. Electronically Signed: Steve Holguin MD at 14:48 EDT , Brain MRI 11/25/22 14:17 IMPRESSION: 1. Normal pituitary. 2. Moderate generalized atrophy. Electronically Signed: Oswald Hamilton MD at 5:35 EDT , Rhythm Strip Rhythm Strip: Sinus Rhythm Rate: 72 Ectopy: None Physical Exam Narrative General: Alert, oriented, no apparent distress HEENT: Atraumatic, normocephalic Eyes: Anicteric, normal conjunctiva, extraocular movements grossly intact Neck: Supple Respiratory: Clear to auscultation bilaterally, normal respiratory effort Cardiovascular: Regular rate and rhythm GI: Soft, nontender, nondistended Extremities: No edema Musculoskeletal: Moving all extremities Neuro: No overt focal neurological deficits Skin: No rashes appreciated Psych: Cooperative Assessment & Plan Assessment/Plan (1) Varices of esophagus determined by endoscopy: PLAN: Varices at the esophagus likely secondary to mild portal hypertension. I do not see any signs of severe liver disease at this time due to the fact that his platelets did recover. I would need to see what his INR is and also a good view of his spleen to see if there is any element of splenomegaly. He does have a normal MCV which goes against severe liver disease. I would get a dedicated image of his abdomen either as an inpatient or outpatient. That would be in MRI of the abdomen with concentration the liver versus CT scan of the abdomen pelvis to look for other signs of portal hypertension such as splenomegaly, gastric or esophageal varices. I would check acute hepatitis panel along with studies for chronic liver disease including anti-smooth muscle antibody, antimitochondrial antibody, antiliver muscle kidney antibody, copper, ceruloplasmin, ferritin, transferrin saturation, reticulocyte count (2) Anemia: PLAN: . He has a slightly lower hemoglobin today. There is no signs of active GI bleeding at this time. He does have a history of colon cancer he may need repeat colonoscopy in the future to make sure there is no signs of chronic GI blood loss in the colon. If that is normal then I recommend a capsule endoscopy as an outpatient. Charges/Coding Visit Charges Inpatient E&M: 89224 Subs Hosp L3
[2022-11-26 12:39] LABS: Platelet Count 186 K/mm3 (150-450); RET-HE 33.6 pg (30-35); Reticulocyte Count 4.38 % (0.5-1.5)
[2022-11-26 12:50] LABS: Bedside Glucose 272 mg/dL (74-106)
[2022-11-26 13:14] LABS: Ferritin 46 ng/mL (26-388); Iron 60 ug/dL (65-175); Iron Binding Capacity,Total 296 ug/dL (250-450); LDH 159 U/L (87-241)
--- NOTE | 2022-11-26 13:45 | PCM.DC.SUM ---
Providers Date of Admission: 11/23/22 Date of Discharge: 11/26/22 Primary Care Physician: Dr. Dutch Zhong MD Consultations 11/23/22 18:11 Consult: Gastroenterology Routine Consulting Provider: [facility] G[facility] Reason for Consult: GI bleed EMERGENT Consult: No MD Notified: Yes Date Notified: 11/23/22 Time Notified: 18:11 Method of Notification: Text Reason For Visit: ANEMIA, SYNCOPE Diagnosis Discharge Diagnosis (1) Varices of esophagus determined by endoscopy: Status: Acute Code(s): I85.00 - Esophageal varices without bleeding (2) Anemia: Status: Acute Code(s): D64.9 - Anemia, unspecified Plan #Sycnopal episode 2/2 positive orthostatic blood pressure 2/2 dehydration and acute on chronic anemia 2/2 upper GI bleeding dysplastic lesion #Grade 1 esophageal varices #Acute on Chronic Anemia/history of colon cancer status postresection and chemoradiation in 2013 #DMII #CKD stage IIIb #Depression Medications at Discharge Home Medications cholecalciferol (vitamin D3) 25 mcg (1,000 unit) capsule 1,000 unit PO DAILY 10/10/13 sertraline 100 mg tablet 100 mg PO DAILY 07/18/14 multivitamin with folic acid 400 mcg tablet 1 tab PO DAILY 10/21/14 cyanocobalamin (vitamin B-12) 500 mcg tablet 500 mcg PO DAILY@0800 11/24/16 rosuvastatin 40 mg tablet 40 mg PO DAILY 11/24/16 atenolol 50 mg tablet 50 mg PO BID 02/14/18 fish oil-dha-epa 1,200 mg-144 mg-216 mg capsule 1 each PO DAILY 11/14/20 aripiprazole 2 mg tablet (Abilify) 2 mg PO DAILY 12/24/20 insulin glargine 100 unit/mL (3 mL) subcutaneous pen (Basaglar KwikPen U-100 Insulin) 45 unit subcut .QAM & HS 05/20/21 insulin lispro 100 unit/mL subcutaneous pen (Admelog SoloStar U-100 Insulin lispro) 36 unit subcut .QID 05/20/21 lisinopril 40 mg tablet 40 mg PO DAILY 05/20/21 omeprazole 20 mg capsule,delayed release 20 mg PO DAILY 08/10/21 meclizine 25 mg tablet 25 mg PO TID PRN dizziness #30 tabs 02/13/22 carbamazepine 200 mg tablet 600 mg PO BID #540 tabs 11/02/22 Hospital Course Procedures - (EEG, MRI brain, MRI abdomen, right upper quadrant ultrasound, echocardiogram) Summary of Care Provided Hospital Course: REGINALDO HUFFMAN, is a 52 M with history of trigeminal neuralgia, depression, vertigo, type 2 diabetes mellitus, colon cancer status post resection chemo radiation in 2013, hypertension who presented to [facility] [place] 11/23/2022 after syncopal episode after he got up from bed and walked into the living room.? In the ED he was found to have a hemoglobin of 6.3 and he was given 2 units packed red blood cells and hospitalist consulted for admission. He reportedly had a history of chronic anemia and was recently put on shots for that but had not had recent scopes even with this history of colon cancer. He endorsed that he had felt lightheaded and dizzy when he lost consciousness for several minutes but mother had not noted any shaking activity and he was not confused when he woke up. Had some headaches off and on and has a history of vertigo and initially thought that is why he was dizzy but had not passed out before like that. After the episode he did have some nausea for about 15 to 20 minutes and then resolved. Denied blood in stool or GI upset. Telemetry unremarkable, EKG normal sinus rhythm with no blocks. EEG negative. CT head with some atrophy but no acute process. He had positive orthostatics and was symptomatic as well. His water pill was held and he was given gentle fluids. FOBT was positive and he had an endoscopy which showed an irregular Z-line 37 cm from the incisors which was biopsied and type I isolated gastric varices without bleeding. Additionally had a single angiodysplastic bleeding lesion in the stomach which was treated with heater probe. GI recommended CT abdomen pelvis to assess for cirrhosis. Patient did have a TSH that was low and free T4 that was low and T3 was obtained which was also low. Obtained MRI of his pituitary to evaluate possible central hypothyroidism and causes behind that obtain MRI of the abdomen at the same time as CT with contrast given his kidney function was not ideal. MRI brain showed some moderate generalized atrophy and a normal pituitary. Liver ultrasound shows hepatomegaly with heterogenous echotexture of the liver and multiple gallstones as well as a small right renal cyst. Abdominal MRI showed mild hepatosplenomegaly with no focal liver lesions and cholelithiasis. GI recommended broad work-up for his liver and that was ordered. His symptoms and orthostatic positive blood pressure did improve with fluids and his hemoglobin stabilized. Given no further acute complaints work-up for his thyroid can be continued as an outpatient. Given possibility of precipitating acute renal crisis by empirically treating with Synthroid when his symptoms have improved feel this can be worked up with close outpatient follow-up. Advised to follow-up closely with his PCP and gave information for follow-up with endocrinology. Basic discharge instructions as followed: -You will need to follow-up with Dr. Warren with [facility] in his office upon discharge.? Please call his office to schedule your hospital follow-up appointment (ph. [phone]) -It is advised that you follow-up with endocrinology upon discharge to further evaluate your thyroid, contact information below.? Please call on Monday to schedule an appointment. -Recommend that you wear compression stockings daily and after laying down for period of time and use it up to sit on the side of the bed for several minutes prior to standing.? Then you should stand to verify no lightheaded or dizziness prior to ambulating.? Also recommend discussing this with your primary care physician upon discharge in the event there is any additional work-up they recommend -You have multiple lab values pending.? You can follow-up with your primary care physician to further review results once available.? The [facility] patient portal will also have your lab results as they become available, would recommend signing up for this and utilizing this as it will be helpful at follow-up appointments if you are primary care physician does not have access to the [facility] [place] medical record. -Would recommend stopping your doxazosin as this can worsen orthostatic hypotension and dizziness and increase your chances of having another episode of passing out. -You were somewhat dehydrated when you came in and your water pill was held.? Would recommend continue to hold this until a follow-up with your prescribing physician for further instructions.? But advised to weigh yourself daily if you gain more than 1 pound in a day or 5 pounds in a week please contact your primary care physician. -Continue your other home medications -Please call your primary care provider's office upon discharge to schedule a hospital follow up within 1 week. -For any concerning signs or symptoms please call 911 or proceed to the nearest emergency department -Iron 60, TIBC 296, transferrin pending, ferritin 46 -Ceruloplasmin and copper pending -TSH 0.35, free T40.57, free T31.9 -Testosterone panel pending -Cortisol 5.60 -Carbamazepine level 7.3 -Antimitochondrial antibody and anti-smooth muscle antibody pending -Hepatitis panel pending Chest x-ray 11/23/2022: Stable chest no visual focal infiltrate CT head 11/23/2022: Chronic involutional changes of the brain Echocardiogram 11/23/2022: Normal LV size, EF 60%, mild concentric left ventricular hypertrophy Liver ultrasound 11/25/2022: Hepatomegaly and heterogenous echotexture of the liver, multiple gallstones, small right renal cyst MRI brain 11/25/2022: Normal pituitary, moderate generalized atrophy Abdominal MRI: Mild hepatosplenomegaly, no focal liver lesion, cholelithiasis Physical Exam Narrative General: Alert, oriented, no apparent distress HEENT: Atraumatic, normocephalic Eyes: Anicteric, normal conjunctiva, extraocular movements grossly intact Neck: Supple Respiratory: Clear to auscultation bilaterally, normal respiratory effort Cardiovascular: Regular rate and rhythm GI: Soft, nontender, nondistended Extremities: No edema Musculoskeletal: Moving all extremities Neuro: No overt focal neurological deficits Skin: No rashes appreciated Psych: Cooperative Weight / BMI Weight Weight: 96.4 kg Body Mass Index (BMI) 32.2 ABG / Lab / Microbiology Data Result Diagrams: 11/26/22 07:09 11/26/22 07:09 Laboratory: Laboratory Results - last 24 hr 11/25/22 16:55: POC Glucose 242 H 11/25/22 20:59: Carbamazepine 7.3 11/25/22 21:11: POC Glucose 201 H 11/26/22 07:09: WBC 5.2, RBC 2.59 L, Hgb 7.8 L, Hct 23.7 L, MCV 91.5, MCH 30.1, MCHC 32.9, RDW Std Deviation 46.5 H, RDW Coeff of Ever 14.6, Plt Count 159, MPV 10.7, Immature Gran % (Auto) 0.800, Neut % (Auto) 60.6, Lymph % (Auto) 30.7, [place] % (Auto) 6.0, Eos % (Auto) 1.5, Baso % (Auto) 0.4, Absolute Neuts (auto) 3.2, Absolute Lymphs (auto) 1.60, Nucleated RBC % 0 11/26/22 07:09: Sodium 135 L, Potassium 4.5, Chloride 108 H, Carbon Dioxide 21.0, Anion Gap 6, BUN 30 H, Creatinine 1.86 H, Estim Creat Clear Calc 43.92, Est GFR (MDRD) Af Amer 49 L, Est GFR (MDRD) Non-Af 40 L, BUN/Creatinine Ratio 16.1, Glucose 228 H, Calcium 8.5, Total Bilirubin 0.20, AST 13 L, ALT 16, Alkaline Phosphatase 64, Total Protein 6.1 L, Albumin 2.7 L, Globulin 3.4, Albumin/Globulin Ratio 0.8 L 11/26/22 09:12: POC Glucose 216 H 11/26/22 12:10: Retic Count 4.38 H, Immature Retic Fraction 32.00 H, Retic Hgb Equivalent 33.6 11/26/22 12:10: Iron 60 L, TIBC 296, Ferritin 46, Lactate Dehydrogenase 159 11/26/22 12:30: POC Glucose 272 H Microbiology: Microbiology 11/23/22 17:12 Stool Stool Occult Blood (YENNI) - Final Occult Blood Positive Radiography Diagnostic Testing: Radiology Impression Liver Ultrasound 11/25/22 07:36 IMPRESSION: Hepatomegaly and heterogeneous echotexture of the liver. Multiple gallstones. Small right renal cyst. Electronically Signed: Steve Holguin MD at 14:48 EDT , Brain MRI 11/25/22 14:17 IMPRESSION: 1. Normal pituitary. 2. Moderate generalized atrophy. Electronically Signed: Oswald Hamilton MD at 5:35 EDT , Abdomen MRI 11/25/22 15:17 IMPRESSION: 1. Mild hepatosplenomegaly. 2. No focal liver lesion. 3. Cholelithiasis. Electronically Signed: Nasir Jolly MD at 12:11 EDT , D/C Instructions Discharge Diet: 1800 Calorie Control Diet Meaningful Use Info Meaningful Use Diagnoses (Choose all that apply): None applicable Discharge Plan Admission Admit Date/Time: 11/23/22 12:55 Primary Reason for Your Visit: Syncope Attending Provider: Maria Antonia Renae Primary Care Provider: Dutch Zhong Instructions Patient Instructions: ED Hypotension, Orthostatic Additional Instructions / Restrictions: DISCHARGE INSTRUCTIONS PLEASE READ *Please take this with you to your next doctors appointment* -You will need to follow-up with Dr. Warren with GI in his office upon discharge. Please call his office to schedule your hospital follow-up appointment (ph. [phone]) -It is advised that you follow-up with endocrinology upon discharge to further evaluate your thyroid, contact information below. Please call on Monday to schedule an appointment. -Recommend that you wear compression stockings daily and after laying down for period of time and use it up to sit on the side of the bed for several minutes prior to standing. Then you should stand to verify no lightheaded or dizziness prior to ambulating. Also recommend discussing this with your primary care physician upon discharge in the event there is any additional work-up they recommend -You have multiple lab values pending. You can follow-up with your primary care physician to further review results once available. The [facility] patient portal will also have your lab results as they become available, would recommend signing up for this and utilizing this as it will be helpful at follow-up appointments if you are primary care physician does not have access to the [facility] medical record. -Would recommend stopping your doxazosin as this can worsen orthostatic hypotension and dizziness and increase your chances of having another episode of passing out. -You were somewhat dehydrated when you came in and your water pill was held. Would recommend continue to hold this until a follow-up with your prescribing physician for further instructions. But advised to weigh yourself daily if you gain more than 1 pound in a day or 5 pounds in a week please contact your primary care physician. -Continue your other home medications -Please call your primary care provider's office upon discharge to schedule a hospital follow up within 1 week. -For any concerning signs or symptoms please call 911 or proceed to the nearest emergency department Discharge Orders/Prescriptions Prescriptions: Continued lisinopril 40 mg tablet 40 mg PO DAILY Basaglar KwikPen U-100 Insulin 100 unit/mL (3 mL) insulin pen 45 unit subcut .QAM & HS insulin lispro [Admelog SoloStar U-100 Insulin] 100 unit/mL insulin pen 36 unit subcut .QID Rx Instructions: 18 units @AM,Lunch, Dinner, and HS with sliding scale. omeprazole 20 mg capsule,delayed release(DR/EC) 20 mg PO DAILY Label Comments: take 1 capsule by mouth once daily 1/2 HOUR BEFORE BREAKFAST carbamazepine 200 mg tablet 600 mg PO BID Qty: 540 2RF cholecalciferol (vitamin D3) 1,000 UNIT capsule 1,000 unit PO DAILY Label Comments: VITAMIN atenolol 50 mg tablet 50 mg PO BID Label Comments: BLOOD PRESURE sertraline 100 MG tablet 100 mg PO DAILY multivitamin with folic acid 1 TABLET tablet 1 tab PO DAILY fish oil-dha-epa 1 EACH capsule 1 each PO DAILY aripiprazole [Abilify] 2 mg tablet 2 mg PO DAILY Label Comments: take 2 tablets by mouth once daily meclizine 25 mg tablet 25 mg PO TID PRN (Reason: dizziness) Qty: 30 0RF cyanocobalamin (vitamin B-12) 500 MCG tablet 500 mcg PO DAILY@0800 rosuvastatin 40 MG tablet 40 mg PO DAILY Discontinued doxazosin 4 mg tablet 4 mg PO DAILY Label Comments: take 1 tablet by mouth once daily furosemide 20 mg tablet 20 mg PO DAILY Referrals / Follow Up: Aquiles Warren DO [Med Staff - Active Staff] - See Referral Note (You will need to follow-up with Dr. Warren with GI in his office upon discharge. Please call his office to schedule your hospital follow-up appointment (ph. [phone])) Chandana Griffin MD [Med Staff - Courtesy Staff] - See Referral Note (Please call to establish care with endocrinology upon discharge for further work-up) Dutch Zhong MD [Primary Care Provider] - Within 1 Week Disposition Disposition (needs filled in before D/C Order can be placed): Home, Self Care Charges/Coding Visit Charges Inpatient E&M: 18756 Disch Hosp >30min
[2022-11-26 15:40] VITALS: BP 148/79; PULSE 79; RESP 16; TEMP 36.7; O2SAT 99
[2022-11-29 16:35] LABS: Anti-Mitochondrial AB <20.0 Units (0.0-20.0)
[2022-11-29 20:08] LABS: Ceruloplasmin 21.4 mg/dL (16.0-31.0); HEPATITIS B SURFACE AG Negative (Negative); Hep C Antibodies Non Reactive (Non Reactive); Hepatitis A IgM Antibody Negative (Negative); Hepatitis B Core AB IgM Negative (Negative)
[2022-11-30 09:39] LABS: Anti-Smooth Muscle ABS 4 Units (0-19); Copper, Serum or Plasma 133 ug/dL (69-132); Transferrin 256 mg/dL (177-329)
== END 2022-11-26 16:17 | disposition home or self-care (01) | DRG 253 ==
LOC: ED 12:25 → PCU 13:23
PROVIDERS: Internal Medicine Gastroenterology; Admitting Provider Internal Medicine; Emergency Provider Emergency Medicine; PCP Family Medicine; Visit Provider Internal Medicine
PROC: 0DJ08ZZ Inspection of Upper Intestinal Tract, Via Natural or Artificial Opening Endoscopic (ICD-10-PCS; CPT 43235; principal; 2022-11-24 12:55)
DX: K31.811 Angiodysplasia of stomach and duodenum with bleeding (principal); K76.6 Portal hypertension; E11.22 Type 2 diabetes mellitus with diabetic chronic kidney disease; E11.40 Type 2 diabetes mellitus with diabetic neuropathy, unspecified; D50.9 Iron deficiency anemia, unspecified; E03.9 Hypothyroidism, unspecified; I85.00 Esophageal varices without bleeding; G40.909 Epilepsy, unspecified, not intractable, without status epilepticus; N18.32 Chronic kidney disease, stage 3b; E78.00 Pure hypercholesterolemia, unspecified; I12.9 Hypertensive chronic kidney disease with stage 1 through stage 4 chronic kidney disease, or unspecified chronic kidney disease; F12.90 Cannabis use, unspecified, uncomplicated; K31.89 Other diseases of stomach and duodenum; I95.1 Orthostatic hypotension; Z87.891 Personal history of nicotine dependence; F32.A Depression, unspecified; Z82.3 Family history of stroke; N28.1 Cyst of kidney, acquired; Z85.038 Personal history of other malignant neoplasm of large intestine
CPT/HCPCS: 36415; 36591; 70450; 70553; 71045; 74183; 76705; 80048; 80053; 80074; 80156; 82274; 82390; 82525; 82533; 82728; 82962; 83516; 83540; 83550; 83615; 84402; 84403; 84439; 84443; 84466; 84481; 84484; 85025; 85045; 86850; 86900; 86901; 86920; 86922; 88305; 88313; 93005; 93306; 95819; 97802; 99285; A9575; J7030; J7040; J7120; P9016; Q9957; A4216; C8929; J2405; Q5106

== ENCOUNTER 2023-01-14 04:26 | Emergency (ER) | payer MEDICAID, SELFPAY ==
[2023-01-14 04:27] VITALS: BP 217/98; PULSE 68; RESP 15; TEMP 36.6; O2SAT 100; BMI 32.6
--- NOTE | 2023-01-14 04:45 | ED.VIS.DENTA ---
HPI History of Present Illness Chief Complaint: Dental Informant: patient Narrative Narrative: Patient complains of pain in the right upper jaw all right where his tooth was worked on. He had work done on . Is been painful ever since. He feels a little fullness in the area but is not worsening. No fevers or chills. This is evidently the first step to get a crown. He is gone to see the dentist again this coming . No trouble swallowing. No chest pain. Nothing specifically makes it better or worse. They did not give him anything for pain but recommended just [id number] Motrin which is not working. [facility] Medical History Alcohol abuse Anemia Asthma Cancer Carpal tunnel syndrome Depressive disorder Diabetes type 2, controlled GERD (gastroesophageal reflux disease) Hepatitis C High cholesterol History of alcohol abuse History of colon cancer HTN (hypertension) Hx of vertigo Hypoglycemia Neuropathy Obesity Pancreatitis portacath placement Seizure disorder Syncope Therapeutic drug monitoring Trigeminal nerve disorder Home Medications cholecalciferol (vitamin D3) 25 mcg (1,000 unit) capsule 1,000 unit PO DAILY 10/10/13 [History Last Taken 11/13/15] sertraline 100 mg tablet 100 mg PO DAILY 07/18/14 [History Last Taken 11/13/15] multivitamin with folic acid 400 mcg tablet 1 tab PO DAILY 10/21/14 [History Last Taken 11/13/15] cyanocobalamin (vitamin B-12) 500 mcg tablet 500 mcg PO DAILY@0800 11/24/16 [History Last Taken Unknown] rosuvastatin 40 mg tablet 40 mg PO DAILY 11/24/16 [History Last Taken Unknown] atenolol 50 mg tablet 50 mg PO BID 02/14/18 [History Last Taken Unknown] fish oil-dha-epa 1,200 mg-144 mg-216 mg capsule 1 each PO DAILY 11/14/20 [History Last Taken Unknown] aripiprazole 2 mg tablet (Abilify) 2 mg PO DAILY 12/24/20 [History Last Taken Unknown] insulin glargine 100 unit/mL (3 mL) subcutaneous pen (Basaglar KwikPen U-100 Insulin) 45 unit subcut .QAM & HS 05/20/21 [History Last Taken Unknown] insulin lispro 100 unit/mL subcutaneous pen (Admelog SoloStar U-100 Insulin lispro) 36 unit subcut .QID 05/20/21 [History Last Taken Unknown] lisinopril 40 mg tablet 40 mg PO DAILY 05/20/21 [History Last Taken Unknown] omeprazole 20 mg capsule,delayed release 20 mg PO DAILY 08/10/21 [History Last Taken Unknown] meclizine 25 mg tablet 25 mg PO TID PRN dizziness #30 tabs 02/13/22 [Rx Last Taken Unknown] carbamazepine 200 mg tablet 600 mg PO BID #540 tabs 11/02/22 [Rx Last Taken Unknown] hydrocodone-acetaminophen 5-325mg 5mg-325mg 1 tab PO Q6H PRN PRN Pain 3 days #12 TABLETS 01/14/23 [Rx Last Taken Unknown] Allergy/AdvReac Type Severity Reaction Status Date / Time erythromycin base Allergy Severe Hives Verified 01/14/23 04:33 loratadine [From Claritin] Allergy Severe Rash Verified 01/14/23 04:33 Family History Grandmother Cervical cancer Diabetes Hypertension Trigeminal neuralgia Mother Uterine cancer Arthritis Diabetes Hypertension Grandfather Heart disease Arthritis Diabetes Hypertension Unknown Diabetes Arthritis Father Arthritis Diabetes Hypertension Sister Diabetes Hypertension Uncle CVA (cerebral vascular accident) Aunt Cerebral aneurysm Surgical History H/O left hemicolectomy Hx of appendectomy Social History Smoking Status: Former smoker Tobacco: How many years used: 20 how long ago did patient quit smoking: quit 2003 second hand exposure: No alcohol intake: former details: quit 2003 substance use type: former substance user Date of last use: Used Marijuana since he was a teenager ROS ROS ED Constitutional Constitutional ED: Denies chills, fever(s) or subjective Eyes Eyes: Denies change in vision ENT ENT ED: Reports other Details: See history of present illness. ; Denies ear pain, rhinorrhea or sore throat Cardiovascular Cardiovascular: Denies chest pain Respiratory/Chest Respiratory/Chest: Denies cough or dyspnea Gastrointestinal Gastrointestinal: Denies nausea or vomiting Musculoskeletal Musculoskeletal: Denies neck pain Integumentary Denies rash Neurologic Neurologic: Denies headache(s) Hematologic/Lymphatic Hematologic/Lymphatic: Denies easy bleeding, easy bruising or lymphadenopathy EXAM Physical Exam Narrative Exam Narrative: Patient awake alert sitting reasonably comfortably in bed. HEENT I see no external swelling and feel no difference. He does have some temporary filling and right upper premolar area. But the gums are not red or swollen around this. No indication of Ludewig's angina. No swelling elsewhere in the mouth. Tongue is normal. Voice is normal. Neck shows no lymphadenopathy tenderness or swelling Heart is regular. Lungs are clear and saturations are normal to 100% on room air showing no hypoxia. Const Vital Signs: 01/14/23 04:27 Temperature 97.9 F Temperature Source Oral Pulse Rate 68 Respiratory Rate 15 Blood Pressure 217/98 H Blood Pressure Mean 137 Pulse Ox 100 Oxygen Delivery Method Room Air MDM MDM MDM Narrative Medical decision making narrative: Patient's blood pressure is a bit up here today but I think this is combination of he is about due for his medicines and he is having pain. He is not having symptoms related to this blood pressure elevation. I do not see signs of infection. There is no erythema or swelling of the gums. There is no fevers or chills. The pain has been there since the procedure. I think this is likely postprocedural pain. I did do online prescribing report review. His last prescription was January of last year. I will write him for a few hydrocodone which she has tolerated. He will follow-up with his dentist. We discussed reasons to return and signs of infection. Discharge Plan Triage Chief Complaint: Dental ED Provider: Cash Dockery Dx/Rx/DC Orders Clinical Impression: Pain, dental, Post-operative pain Instructions: ED Dental Pain Prescriptions: New hydrocodone-acetaminophen [hydrocodone-acetaminophen] 5-325 mg tablet 1 tab PO Q6H PRN PRN (Reason: Pain) 3 Days Qty: 12 0RF No Action lisinopril 40 mg tablet 40 mg PO DAILY Basaglar KwikPen U-100 Insulin 100 unit/mL (3 mL) insulin pen 45 unit subcut .QAM & HS insulin lispro [Admelog SoloStar U-100 Insulin] 100 unit/mL insulin pen 36 unit subcut .QID Rx Instructions: 18 units @AM,Lunch, Dinner, and HS with sliding scale. omeprazole 20 mg capsule,delayed release(DR/EC) 20 mg PO DAILY Label Comments: take 1 capsule by mouth once daily 1/2 HOUR BEFORE BREAKFAST carbamazepine 200 mg tablet 600 mg PO BID Qty: 540 2RF cholecalciferol (vitamin D3) 1,000 UNIT capsule 1,000 unit PO DAILY Label Comments: VITAMIN atenolol 50 mg tablet 50 mg PO BID Label Comments: BLOOD PRESURE sertraline 100 MG tablet 100 mg PO DAILY multivitamin with folic acid 1 TABLET tablet 1 tab PO DAILY fish oil-dha-epa 1 EACH capsule 1 each PO DAILY aripiprazole [Abilify] 2 mg tablet 2 mg PO DAILY Label Comments: take 2 tablets by mouth once daily meclizine 25 mg tablet 25 mg PO TID PRN (Reason: dizziness) Qty: 30 0RF cyanocobalamin (vitamin B-12) 500 MCG tablet 500 mcg PO DAILY@0800 rosuvastatin 40 MG tablet 40 mg PO DAILY Primary Care Provider: Dutch Zhong Referrals: Dutch Zhong MD [Primary Care Provider] - Dentist,Your [STAFF PHYSICIAN] - As soon as possible Disposition Disposition: Home, Self Care
[2023-01-14] MEDS: oxyCODONE 5 MG Tablet PO (04:52)
[2023-01-14 04:55] VITALS: PULSE 68; RESP 15; O2SAT 99
== END 2023-01-14 04:55 | disposition home or self-care (01) ==
LOC: ED 04:53
PROVIDERS: Emergency Provider Emergency Medicine; PCP Family Medicine; Visit Provider Emergency Medicine
DX: K08.89 Other specified disorders of teeth and supporting structures (principal); E11.40 Type 2 diabetes mellitus with diabetic neuropathy, unspecified; Z79.4 Long term (current) use of insulin; I10 Essential (primary) hypertension; E78.00 Pure hypercholesterolemia, unspecified; Z87.891 Personal history of nicotine dependence; G89.18 Other acute postprocedural pain; Z86.19 Personal history of other infectious and parasitic diseases; F32.A Depression, unspecified; Z79.899 Other long term (current) drug therapy; K21.9 Gastro-esophageal reflux disease without esophagitis; Z90.49 Acquired absence of other specified parts of digestive tract
CPT/HCPCS: 99283

== ENCOUNTER → 2023-03-24 | Outpatient (CLI) | payer MEDICAID, SELFPAY ==
[2023-03-24 14:19] LABS: Hematocrit 27.9 % (40-54); Hemoglobin 9.2 g/dL (13.0-16.5); Mean Corpuscular Hgb 29.6 pg (27.0-32.0); Mean Corpuscular Volume 89.7 fL (80-94); Mean Platelet Vol. 10.4 fl (6.2-12.0); Platelet Count 193 K/mm3 (150-450); RBC Distribution Width CV 13.3 % (11.6-14.6); RBC Distribution Width SD 43.5 fl (35.1-43.9); Red Blood Count 3.11 M/mm3 (4.6-6.2)
[2023-03-24 14:30] LABS: Protein:Creat Ratio 9966 mg/g CRE (0-200)
[2023-03-24 14:53] LABS: Albumin, Serum 2.8 g/dL (3.2-5.0); BUN 31 mg/dL (7-18); BUN/Creat Ratio 12.3 RATIO (10-20); Calcium,Total 8.7 mg/dL (8.5-10.1); Chloride 106 mmol/L (98-107); Creatinine, Serum 2.52 mg/dL (0.70-1.30); EST Glomerular Filtration Rate 28 mL/min (>60); Est Glom Filt Rate - Afr Amer 34 mL/min (>60); Glucose 213 mg/dL (74-106); Phosphorus 3.9 mg/dL (2.5-4.9); Sodium Level 135 mmol/L (136-145)
[2023-03-24 14:57] LABS: Vitamin D,25 Hydroxy 11.8 ng/mL
== END | disposition home or self-care (01) ==
LOC: LAB 13:22
PROVIDERS: PCP Family Medicine; Referring Provider Internal Medicine Nephrology; Visit Provider Internal Medicine Nephrology
DX: N18.31 Chronic kidney disease, stage 3a (principal); D64.9 Anemia, unspecified; R80.9 Proteinuria, unspecified
CPT/HCPCS: 36415; 80069; 82306; 82570; 83970; 84156; 85027

== ENCOUNTER 2023-05-25 11:53 | Emergency (ER) | payer MEDICAID, SELFPAY ==
[2023-05-25 11:53] VITALS: BP 206/96; PULSE 64; RESP 18; TEMP 36.3; O2SAT 99; BMI 32.8
--- NOTE | 2023-05-25 12:19 | RAD_ITS ---
HISTORY: HTN ELEVATED. TECHNIQUE: XR Chest 2 Views. COMPARISON: 11/23/2022. FINDINGS: CARDIOMEDIASTINAL BORDERS: Cardiac silhouette within normal limits in size. Mediastinal contour unchanged with calcification of the aortic knob and left chest wall port with catheter tip at the superior cavoatrial junction. LUNGS: Low lung volumes with mild linear bibasilar opacities. PLEURA: No pleural effusion or pneumothorax seen. OSSEOUS STRUCTURES: Mild degenerative change. RAD/Chest PA and Lateral IMPRESSION: Mild bibasilar atelectasis. Electronically Signed: Cee Suggs MD at 14:10 EDT ,
--- NOTE | 2023-05-25 12:19 | CT_ITS ---
HISTORY: HTN, dizzy. TECHNIQUE: Multiple axial images were obtained of the head without intravenous contrast. A radiation dose optimization technique was used for this scan. 268 images. COMPARISON: 11/23/2022. FINDINGS: BRAIN PARENCHYMA: Multiple foci and zones of low attenuation in the bilateral cerebral white matter compatible with chronic small vessel ischemic gliosis. No acute intra-axial hemorrhage identified. CSF SPACES: Generalized volume loss. No midline shift or other significant mass effect. No acute extra-axial hemorrhage seen. OTHER: Intact calvarium. No significant air fluid levels in the paranasal sinuses or mastoid air cells. Unremarkable orbits. CT/Brain/Head without Contrast IMPRESSION: No acute intracranial process identified. Chronic involutional and white matter changes. Electronically Signed: Cee Suggs MD at 13:14 EDT ,
--- NOTE | 2023-05-25 12:31 | EDS_ITS ---
HPI History of Present Illness Chief Complaint: Hypertension Informant: patient Narrative Narrative: Patient presents to the cancer center secondary to hypertension and dizziness. Patient has a history of hypertension and is currently on atenolol, Lasix, and lisinopril. They noted his blood pressure to be over 200 systolic today and he was complaining of slight dizziness. Patient denies chest pain or palpitations. On review of records it appears patient's systolic blood pressure usually runs between 150s and 170s. There have been occasions when he has been here with a blood pressure over 200 systolic. At that time was felt to be secondary to pain in addition to his baseline hypertension. Patient denies headache. He denies vision changes. [facility] Medical History Alcohol abuse Anemia Anemia in chronic kidney disease Asthma Cancer Carpal tunnel syndrome Depressive disorder Diabetes type 2, controlled GERD (gastroesophageal reflux disease) Hepatitis C High cholesterol History of alcohol abuse History of colon cancer HTN (hypertension) Hx of vertigo Hypertension Hypoglycemia Neuropathy Obesity Pancreatitis portacath placement Seizure disorder Syncope Therapeutic drug monitoring Trigeminal nerve disorder Home Medications cholecalciferol (vitamin D3) 25 mcg (1,000 unit) capsule 1,000 unit PO DAILY 10/10/13 [History Last Taken 11/13/15] sertraline 100 mg tablet 100 mg PO DAILY 07/18/14 [History Last Taken 11/13/15] multivitamin with folic acid 400 mcg tablet 1 tab PO DAILY 10/21/14 [History Last Taken 11/13/15] rosuvastatin 40 mg tablet 40 mg PO DAILY 11/24/16 [History Last Taken Unknown] atenolol 50 mg tablet 50 mg PO BID 02/14/18 [History Last Taken Unknown] fish oil-dha-epa 1,200 mg-144 mg-216 mg capsule 1 each PO DAILY 11/14/20 [History Last Taken Unknown] aripiprazole 2 mg tablet (Abilify) 2 mg PO DAILY 12/24/20 [History Last Taken Unknown] lisinopril 40 mg tablet 40 mg PO DAILY 05/20/21 [History Last Taken Unknown] carbamazepine 200 mg tablet 800 mg PO BID 02/03/23 [History Last Taken Unknown] fenofibrate nanocrystallized 145 mg tablet 145 mg PO DAILY 02/03/23 [History Last Taken Unknown] insulin glargine 100 unit/mL (3 mL) subcutaneous pen (Basaglar KwikPen U-100 Insulin) 25 unit subcut .QAM & HS 02/03/23 [History Last Taken Unknown] insulin lispro 100 unit/mL subcutaneous pen (Admelog SoloStar U-100 Insulin lispro) 18 unit subcut .QID 02/03/23 [History Last Taken Unknown] furosemide 20 mg tablet 20 mg PO DAILY 04/27/23 [History Last Taken Unknown] empagliflozin 25 mg tablet (Jardiance) 25 mg PO DAILY #30 tabs 05/11/23 [Rx Last Taken Unknown] doxazosin 2 mg tablet 2 mg PO DAILY #30 tabs 05/25/23 [Rx Last Taken Unknown] Allergy/AdvReac Type Severity Reaction Status Date / Time doxazosin [From Cardura] Allergy Severe Bleeding Verified 05/25/23 11:53 erythromycin base Allergy Severe Hives Verified 05/25/23 11:53 loratadine [From Claritin] Allergy Severe Rash Verified 05/25/23 11:53 Family History Grandmother Cervical cancer Diabetes Hypertension Trigeminal neuralgia Mother Uterine cancer Arthritis Diabetes Hypertension Grandfather Heart disease Arthritis Diabetes Hypertension Unknown Diabetes Arthritis Father Arthritis Diabetes Hypertension Sister Diabetes Hypertension Uncle CVA (cerebral vascular accident) Aunt Cerebral aneurysm Surgical History H/O left hemicolectomy Hx of appendectomy Social History Smoking Status: Former smoker Tobacco: How many years used: 20 how long ago did patient quit smoking: quit 2003 second hand exposure: No alcohol intake: former details: quit 2003 substance use type: former substance user Date of last use: Used Marijuana since he was a teenager ROS ROS ED Constitutional Constitutional ED: Denies chills or fever(s) Eyes Eyes: Denies change in vision ENT ENT ED: Denies rhinorrhea or sore throat Cardiovascular Cardiovascular: Denies chest pain or palpitations Respiratory/Chest Respiratory/Chest: Denies cough or dyspnea Gastrointestinal Gastrointestinal: Denies abdominal pain, nausea or vomiting Genitourinary Genitourinary ED: Denies difficulty urinating Musculoskeletal Musculoskeletal: Denies back pain or extremity pain Integumentary Denies Abrasions or rash Neurologic Neurologic: Denies headache(s) or weakness Psychiatric Psychiatric: Denies anxiety or depression Endocrine Endocrinology: Denies polydipsia or polyuria Allergic/Immunologic Allergic/Immunologic ED: Denies lip swelling or urticaria EXAM Physical Exam Const Vital Signs: 05/25/23 11:53 05/25/23 14:00 05/25/23 15:15 Temperature 97.4 F L Temperature Source Temporal Pulse Rate 64 65 68 Respiratory Rate 18 18 17 Blood Pressure 206/96 H 172/85 H 157/97 H Blood Pressure Mean 132 114 117 Pulse Ox 99 99 98 Oxygen Delivery Method Room Air Room Air Room Air 05/25/23 16:35 Temperature Temperature Source Pulse Rate 70 Respiratory Rate 12 Blood Pressure 172/81 H Blood Pressure Mean 111 Pulse Ox 98 Oxygen Delivery Method Room Air Positive well nourished and well developed General Appearance ED: well developed HEENT Reports normocephalic and head/scalp atraumatic Eyes PERRL and EOMs intact bilaterally Neck supple Chest Wall inspection of chest normal and palpation of chest normal Resp normal respiratory effort and clear to auscultation bilaterally Cardio regular rate and regular rhythm GI normal to inspection, nondistended, normoactive bowel sounds Palpation: soft Back/Spine no CVA tenderness Extremity normal to inspection Neuro oriented x3 and no sensory deficits noted Sensorium / Orientation: alert Motor Exam: strength 5/5 throughout Psych mental status grossly normal Skin no rashes or lesions noted MDM MDM MDM Narrative Medical decision making narrative: Arrives to the ED with a blood pressure of 206/96. Patient is placed on mixer machine feeder. EKG obtained to evaluate for cardiac arrhythmia/ischemia. Labwork obtained to evaluate for leukocytosis, anemia, and electrolyte derangement. CT scan of the head obtained to evaluate for bleed given his hypertension and dizziness. Patient is given a dose of hydralazine for blood pressure control. History & Record Review Discussion w/independent historian: Family Additional record(s) reviewed:: Prior outpatient record, Prior ED visit and Prior labs Lab Data Attestation: I reviewed the patient's lab results. Labs: Laboratory Results - last 24 hr 05/25/23 05/25/23 12:38 13:04 WBC 4.7 RBC 2.95 L Hgb 9.3 L Hct 26.3 L MCV 89.2 MCH 31.5 MCHC 35.4 RDW Std Deviation 43.8 RDW Coeff of Ever 13.3 Plt Count 135 L MPV 9.9 Immature Gran % (Auto) 0.400 Neut % (Auto) 60.4 Lymph % (Auto) 30.3 [place] % (Auto) 6.8 Eos % (Auto) 1.5 Baso % (Auto) 0.6 Absolute Neuts (auto) 2.9 Absolute Lymphs (auto) 1.43 Nucleated RBC % 0 Sodium 133 L Potassium 4.5 Chloride 105 Carbon Dioxide 22.0 Anion Gap 6 BUN 37 H Creatinine 2.77 H Estim Creat Clear Calc 29.49 Est GFR (MDRD) Af Amer 31 L Est GFR (MDRD) Non-Af 26 L BUN/Creatinine Ratio 13.4 Glucose 353 H Calcium 7.5 L Urine Color Yellow Urine Clarity Clear Urine pH 6.0 Ur Specific [place] 1.015 Urine Protein 500 H Urine Glucose (UA) 1000 H Urine Ketones Negative Urine Occult Blood 25 H Urine Nitrite Negative Urine Bilirubin Negative Urine Urobilinogen Normal Ur Leukocyte Esterase Negative Urine RBC 0 SEEN Urine WBC 0 SEEN Ur Squamous Epith Cells 0 SEEN Urine Bacteria 0 SEEN Urine Mucus 0 SEEN Radiography Chest X-Ray - ED: 1 View, Read by ED Physician and Chronic Changes Diagnostic Testing: Clinical Impression(s) from Imaging Studies Brain CT 05/25/23 12:19 IMPRESSION: No acute intracranial process identified. Chronic involutional and white matter changes. Electronically Signed: Cee Suggs MD at 13:14 EDT , Chest X-Ray 05/25/23 12:19 IMPRESSION: Mild bibasilar atelectasis. Electronically Signed: Cee Suggs MD at 14:10 EDT , EKG Initial EKG: Attestation: I personally reviewed and interpreted this EKG as follows: Interpretation: Sinus Rhythm (Sinus at 65 with no acute ischemia.) Treatment and Re-Evaluation :: Patient was given a dose of hydralazine for blood pressure control. Repeat pressure is 172/85 with a heart rate of 65. On repeat evaluation patient still reports feeling slightly dizzy. He is now developing a mild headache. He will be given something to eat along with a dose of Tylenol for headache. CBC reveals normal white count at 4.7 with a hemoglobin of 9.3. This is consistent with his prior values. Chemistry studies reveal a sodium of 133 and a BUN of 37 with creatinine of 2.77. This is consistent with his prior values as well. Glucose is elevated at 353. Urinalysis does reveal 100 of protein which is consistent with his prior urinalysis readings. No sign of acute infection. Dr. Zhong, the patient's primary care physician. He had listed that the patient was still taking doxazosin 2 mg in addition to the other blood pressure medication already discussed. Patient states that he was told to stop this medication when he was here in November with an upper GI bleed and varices. He states that Dr. Warren told him not to take this medication and that that caused his bleeding. I reviewed the notes from that visit and I do not see anybody documenting that he cannot take doxazosin. I spoke with Dr. Warren and he states there is no correlation and the patient can take his doxazosin without any problems. Patient be given a new prescription for this to add to his regimen. He will monitor his blood pressures and is to follow-up with his PCP. Return instructions are given. Discharge Plan Triage Chief Complaint: Hypertension Other Complaint: Dizziness ED Provider: So Donaldson Dx/Rx/DC Orders Clinical Impression: Hypertension Instructions: ED Hypertension, Established Prescriptions: New doxazosin 2 mg tablet 2 mg PO DAILY Qty: 30 0RF No Action lisinopril 40 mg tablet 40 mg PO DAILY Basaglar KwikPen U-100 Insulin 100 unit/mL (3 mL) insulin pen 25 unit subcut .QAM & HS insulin lispro [Admelog SoloStar U-100 Insulin] 100 unit/mL insulin pen 18 unit subcut .QID Rx Instructions: 18 units @AM,Lunch, Dinner, and HS with sliding scale. carbamazepine 200 mg tablet 800 mg PO BID fenofibrate nanocrystallized 145 mg tablet 145 mg PO DAILY furosemide 20 mg tablet 20 mg PO DAILY cholecalciferol (vitamin D3) 1,000 UNIT capsule 1,000 unit PO DAILY Patient Comments: VITAMIN atenolol 50 mg tablet 50 mg PO BID Patient Comments: BLOOD PRESURE sertraline 100 MG tablet 100 mg PO DAILY multivitamin with folic acid 1 TABLET tablet 1 tab PO DAILY fish oil-dha-epa 1 EACH capsule 1 each PO DAILY aripiprazole [Abilify] 2 mg tablet 2 mg PO DAILY Patient Comments: take 2 tablets by mouth once daily rosuvastatin 40 MG tablet 40 mg PO DAILY Jardiance 25 mg tablet 25 mg PO DAILY Qty: 30 5RF Primary Care Provider: Dutch Zhong Referrals: Dutch Zhong MD [Primary Care Provider] - 1-2 Weeks Activity Restrictions/Additional Instructions: Please keep a journal of your blood pressure readings and review this with your doctor at your next visit. Disposition Disposition: Home, Self Care
[2023-05-25] MEDS: hydrALAZINE 20 MG/ML Vial 10 MG IV (12:41)
[2023-05-25 12:57] LABS: Absolute Lymphocyte Count 1.43 X10^3/uL (0.83-4.51); Absolute Neutrophil Count 2.9 X10^3/uL (2.0-7.7); Basophil# 0.03 X10^3/uL; Basophil% 0.6 % (0-1); Eosinophil# 0.07 X10^3/uL; Eosinophils% 1.5 % (0-5); Hematocrit 26.3 % (40-54); Hemoglobin 9.3 g/dL (13.0-16.5); Lymphocyte # 1.43 X10^3/ul (0.83-4.51); Lymphocyte % 30.3 % (19-41); Mean Corp Hgb Conc 35.4 g/dL (32-36); Mean Corpuscular Hgb 31.5 pg (27.0-32.0); Mean Corpuscular Volume 89.2 fL (80-94); Mean Platelet Vol. 9.9 fl (6.2-12.0); Monocyte# 0.32 X10^3/uL; Monocyte% 6.8 % (0-10); NRBC Flagged by Analyzer 0 % (0-5); Neutrophil # 2.85 X10^3/uL (2.7-7.7); Neutrophil % 60.4 % (47-70); Platelet Count 135 K/mm3 (150-450); RBC Distribution Width CV 13.3 % (11.6-14.6); RBC Distribution Width SD 43.8 fl (35.1-43.9); Red Blood Count 2.95 M/mm3 (4.6-6.2); White Blood Count 4.7 K/mm3 (4.4-11.0)
[2023-05-25 13:03] LABS: Anion Gap 6 (5-15); BUN 37 mg/dL (7-18); BUN/Creat Ratio 13.4 RATIO (10-20); Calcium,Total 7.5 mg/dL (8.5-10.1); Chloride 105 mmol/L (98-107); Creatinine, Serum 2.77 mg/dL (0.70-1.30); EST Glomerular Filtration Rate 26 mL/min (>60); Est Glom Filt Rate - Afr Amer 31 mL/min (>60); Estimated Creatinine Clearance 29.49 ml/min; Glucose 353 mg/dL (74-106); Potassium 4.5 mmol/L (3.5-5.1); Sodium Level 133 mmol/L (136-145)
[2023-05-25 13:09] LABS: Bacteria 0 SEEN /hpf (None Seen); Mucous, Urine 0 SEEN /hpf (<or=2+); Red Blood Cells-Urine 0 SEEN /hpf (0-5); Squamous Epithelial Cells - UA 0 SEEN /hpf (0-5); White Blood Cells 0 SEEN /hpf (0-5)
[2023-05-25 13:12] LABS: Color, Urine Yellow (Yellow); Glucose, Dipstick 1000 mg/dl (Normal); Ketone-Dipstick Negative (Negative); Leukocyte Esterase-Dipstick Negative /ul (Negative); Nitrite-Dipstick Negative (Negative); Occult Blood-Urine 25 /ul (Negative); Protein-Dipstick 500 mg/dl (Negative); Specific Gravity, Urine 1.015 (1.002-1.030); Urine Bilirubin Dipstick Negative (Negative); Urine Clarity Clear (Clear); Urine Urobilinogen Normal (Normal)
[2023-05-25 14:00] VITALS: BP 172/85; PULSE 65; RESP 18; O2SAT 99
--- NOTE | 2023-05-25 15:01 | ED.RN ---
Snacks given. Patient comfortable,
[2023-05-25] MEDS: Acetaminophen 500 MG Tablet 1000 MG PO (15:14)
[2023-05-25 15:15] VITALS: BP 157/97; PULSE 68; RESP 17; O2SAT 98
[2023-05-25 16:35] VITALS: BP 172/81; PULSE 70; RESP 12; O2SAT 98
[2023-05-25 16:49] VITALS: BP 172/82
== END 2023-05-25 16:58 | disposition home or self-care (01) ==
PROVIDERS: Emergency Provider Emergency Medicine; PCP Family Medicine; Visit Provider Emergency Medicine
DX: I10 Essential (primary) hypertension (principal); E11.40 Type 2 diabetes mellitus with diabetic neuropathy, unspecified; Z79.4 Long term (current) use of insulin; E78.00 Pure hypercholesterolemia, unspecified; Z87.891 Personal history of nicotine dependence; R42 Dizziness and giddiness; Z79.899 Other long term (current) drug therapy; B19.20 Unspecified viral hepatitis C without hepatic coma; F32.A Depression, unspecified; Z85.038 Personal history of other malignant neoplasm of large intestine
CPT/HCPCS: 70450; 71046; 80048; 81001; 85025; 93005; 96374; 99283; A4216

== ENCOUNTER → 2023-07-25 | Outpatient (CLI) | payer MEDICAID, SELFPAY ==
[2023-07-25 11:10] LABS: Absolute Lymphocyte Count 1.82 X10^3/uL (0.83-4.51); Absolute Neutrophil Count 4.1 X10^3/uL (2.0-7.7); Basophil# 0.04 X10^3/uL; Basophil% 0.6 % (0-1); Eosinophil# 0.09 X10^3/uL; Eosinophils% 1.4 % (0-5); Hematocrit 29.2 % (40-54); Hemoglobin 10.7 g/dL (13.0-16.5); Lymphocyte # 1.82 X10^3/ul (0.83-4.51); Lymphocyte % 27.8 % (19-41); Mean Corp Hgb Conc 36.6 g/dL (32-36); Mean Corpuscular Hgb 33.6 pg (27.0-32.0); Mean Corpuscular Volume 91.8 fL (80-94); Mean Platelet Vol. 9.9 fl (6.2-12.0); Monocyte# 0.38 X10^3/uL; Monocyte% 5.8 % (0-10); NRBC Flagged by Analyzer 0 % (0-5); Neutrophil # 4.12 X10^3/uL (2.7-7.7); Platelet Count 212 K/mm3 (150-450); RBC Distribution Width CV 13.5 % (11.6-14.6); RBC Distribution Width SD 45.1 fl (35.1-43.9); RET-HE 34.4 pg (30-35); Red Blood Count 3.18 M/mm3 (4.6-6.2); Reticulocyte Count 1.84 % (0.5-1.5); White Blood Count 6.5 K/mm3 (4.4-11.0)
[2023-07-25 11:15] LABS: Erythrocyte Sedimentation Rate 7 mm/hr (0-20)
[2023-07-25 11:43] LABS: Vitamin B12 483 pg/mL (211-911)
[2023-07-25 11:59] LABS: Ferritin 187 ng/mL (26-388); Iron 75 ug/dL (65-175); Iron Binding Capacity,Total 232 ug/dL (250-450); Thyroid Stim Hormone (TSH) 1.44 uIU/mL (0.358-3.74); Triglycerides 2740 mg/dL
[2023-07-26 14:09] LABS: Anti-Centromere B Ab <0.2 AI (0.0-0.9); Anti-Chromatin <0.2 AI (0.0-0.9); Anti-Jo <0.2 AI (0.0-0.9); Anti-Scleroderma-70 AB <0.2 AI (0.0-0.9); Anti-dsDNA Ab <1 IU/mL (0-9); RNP Ab <0.2 AI (0.0-0.9); SJOGREN'S Anti-SS-A test < 0.2 AI (0.0-0.9); SJOGREN'S Anti-SS-B test < 0.2 AI (0.0-0.9); Smith Ab <0.2 AI (0.0-0.9)
== END | disposition home or self-care (01) ==
LOC: LAB 10:43
PROVIDERS: PCP Family Medicine; Referring Provider Internal Medicine Gastroenterology; Visit Provider Internal Medicine Gastroenterology
DX: I86.4 Gastric varices (principal); K22.9 Disease of esophagus, unspecified
CPT/HCPCS: 36415; 82607; 82728; 82784; 82785; 82787; 83516; 83540; 83550; 84165; 84443; 84478; 85025; 85045; 85652; 86140; 86225; 86235; 86255; 86256; 86334

== ENCOUNTER 2023-08-02 05:36 | Day surgery (SDC) | payer MEDICAID, SELFPAY ==
--- NOTE | 2023-08-02 06:26 | PCM.HP.BLA ---
History and Physical Date of Admission: 08/02/23 REGINALDO HUFFMAN, is a 52 M who presents to the office today for Prior imaging: ? CT abd/pel 9.12.14 stable hepatosplenomegaly; LUQ varices; renal cysts; postsurgical changes of right hemicolectomy. ? CT abd/pel 11.14.20 normal liver, gallbladder; mild splenomegaly with adjacent calcified structure, ?prior inflammation; LUQ varicosities stable, r/t splenic vein thrombosis, stable. *[facility] hospitalization 11.23.22-11.26.22. ED presentation for syncopal event lasting 5 minutes with preceding nausea and dizziness. Workup concerning for anemia (hgb 6.3), dizziness when attempting orthostatic BP. 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 ? Biochemical hgb trended upward, plt between 154-131 TIBC, transferrin, ferritin, LFT low to normal, ceruloplasmin, cortisol, AMA, ASM, hepatitis without pertinent abnormality. iron L60, protein/albumin low, TSH L 0.35, T4 L 0.57, T3 L1.9, copper H133 ? EGD 11.24.22 irregular ZLine 37cm; submucosal esophageal lesion; IGV1 in the cardia; bleeding AVM of gastric body, heater probe. ? US RUQ 11.25.22 hepatomegaly 19.2cm with heterogeneous echogenicity ? MRI abd 11.25.22 cholelithiasis; splenomegaly. OV 12.15.22 Refer for EUS for submucosal lesion of esophagus; declines colonoscopy; continue atenolol. [facility] hematology for anemia with CKD, colon cancer history and HTN. Continue retacrit and PO iron ? Biochemical CEA 1.5 OV 07.25.23 diet includes a lot of carbohydrates, fried foods, processed meats, sugars. With this diet he is having a lot of frequent loose stools. ROS Const Constitutional: Positive for fatigue and headache(s) ENT ENT: Positive for headache(s); No difficulty swallowing Gastro GI: Positive for bloating, change in bowel habits, diarrhea, heartburn and excessive flatus; No abdominal pain, belching, change in stool character, coffee ground emesis, constipation, cramping, difficulty swallowing, feeling full early, incontinent of stools, Vomiting blood/hematemesis, Blood in stool, loose stools, Black,tarry stools, nausea/dyspepsia, pain with swallowing, vomiting or other Musc Musculoskeletal: Positive for joint swelling, sciatica and restless legs; No joint pain Skin Skin: No yellowing of the eye or itchy eyes Neuro Neurology: Positive for headache(s), restless legs and seizures Psych Psychiatric: Positive for anxiety and Positive for depression Endo Endocrine: Positive for fatigue Aller/Imm Allergy/Immunologic: No itchy eyes Francesco/Lymp Hematologic/Lymphatic: No easy bleeding or easy bruising Exam Const General: cooperative, healthy appearing, comfortable and no acute distress Nutritional Appearance: obese Orientation: alert, awake and oriented x3 HENMT Head: normal to inspection Ears: hearing grossly normal bilaterally Nose: external nose normal Face and sinus: normal facial exam Eyes General: appearance normal, both eyes and all related structures Alignment and Position: alignment normal Sclera: sclerae normal Neck Neck: normal visual inspection Carotids: normal carotid upstroke Chest Chest palpation & inspection: normal inspection of the chest Resp Effort & Inspection: normal respiratory effort, able to speak in complete sentences, symmetric chest movement, normal respiratory pattern, no audible wheezes and no cough Auscultation: Bilateral: Clear to Auscultation Cardio Rate: regular rate Heart Sounds: S1 normal and S2 normal Bruits: no carotid bruits GI Inspection: normal to inspection and obesity Musc Cervical Spine: normal cervical lordosis Thoracic/Lumbar Spine: thoracic and lumbar spine normal to inspection Skin General: no rashes or lesions noted Lesions: no lesions Rashes: no rashes Trauma: no lacerations or abrasions Wounds: no wounds Neuro General: patient alert, patient awake and patient oriented x3 Cognition: normal cognition Speech: speech normal Gait: normal gait Extrem General: normal to inspection and no pedal edema Other: pedal pulses 2+ bilat Psych Appearance: grossly normal Mental Status: mental status grossly normal Mood: congruent mood Affect: normal affect Speech and Movement: speech and movement normal Attitude: cooperative Thought Process: normal Thought Content: normal Judgment: judgment good Quality Reporting Tobacco Screening ([facility] 138) Smoking Status: Former smoker Assessment and Plan Assessment and Plan (1) Gastric varices without bleeding: Status: Chronic Plan: Gastric varices without clear signs or symptoms of 3 portal hypertension for hypertension all post portal hypertension. He also has some mild splenomegaly. There was no clot seen in the portal or hepatic vein. He did have gastric varices that were seen and there were no other clot seen in the circulatory system involving the abdomen. He would likely need to get liver biopsy and or TIPS procedure. We will repeat his upper endoscopy to see how his gastric varices are doing. (2) Anemia in chronic kidney disease: Status: Chronic Qualifiers: Chronic kidney disease stage: unspecified stage Qualified Code(s): N18.9 - Chronic kidney disease, unspecified; D63.1 - Anemia in chronic kidney disease Plan: Anemia seems to be relatively stable at 9.8 since being in the hospital. (3) Loose stools: Status: Chronic (4) Subepithelial esophageal lesion: Status: Chronic (5) History of colon cancer: Status: Chronic Comment: No clinical evidence of disease. CEA 1.4 on 03/16/2023 Orders: I have examined the patient and the H&P has been reviewed. There are no clinical changes since date of exam.
[2023-08-02 06:47] LABS: Bedside Glucose 162 mg/dL (74-106)
[2023-08-02] MEDS: Lactated Ringers 1,000 ML 15 ML IV (06:48)
[2023-08-02 06:54] VITALS: BP 167/96; PULSE 72; RESP 18; TEMP 36.5; O2SAT 100; BMI 32.5
[2023-08-02 07:40] VITALS: BP 142/89; BP 167/96; PULSE 76; RESP 16; TEMP 36.6; O2SAT 99
--- NOTE | 2023-08-02 07:44 | OP.EGD_ITS ---
Patient Name: Raleigh Chen Procedure Date: 08/02/2023 7:07 AM Date of : 1970 Age: 52 Procedure: Upper GI endoscopy Indications: Iron deficiency anemia, Melena, Gastric varices Providers: Aquiles Warren DO Referring MD: Aquiles Warren DO Medicines: Monitored Anesthesia Care Patient Profile: This is a 52 year old male. Refer to note in patient chart for documentation of history and physical. Patient has symptoms of chronic nausea and acute vomiting. Complications: No immediate complications. Procedure: Pre-Anesthesia Assessment: - Prior to the procedure, a History and Physical was performed, and patient medications and allergies were reviewed. The patient is competent. The risks and benefits of the procedure and the sedation options and risks were discussed with the patient. All questions were answered and informed consent was obtained. Patient identification and proposed procedure were verified by the physician in the pre-procedure area. Mental Status Examination: alert and oriented. Airway Examination: normal oropharyngeal airway and neck mobility. Respiratory Examination: clear to auscultation. CV Examination: normal. Prophylactic Antibiotics: The patient does not require prophylactic antibiotics. Prior Anticoagulants: The patient has taken no anticoagulant or antiplatelet agents. ASA Grade Assessment: III - A patient with severe systemic disease. After reviewing the risks and benefits, the patient was deemed in satisfactory condition to undergo the procedure. The anesthesia plan was to use monitored anesthesia care (MAC). Immediately prior to administration of medications, the patient was re-assessed for adequacy to receive sedatives. The heart rate, respiratory rate, oxygen saturations, blood pressure, adequacy of pulmonary ventilation, and response to care were monitored throughout the procedure. The physical status of the patient was re-assessed after the procedure. After obtaining informed consent, the endoscope was passed under direct vision. Throughout the procedure, the patient's blood pressure, pulse, and oxygen saturations were monitored continuously. The Endoscope was introduced through the mouth, and advanced to the second part of duodenum. The upper GI endoscopy was accomplished without difficulty. The patient tolerated the procedure well. Scope In: 7:18:50 AM Scope Out: 7:31:56 AM Total Procedure Duration Time 0 hours 13 minutes 6 seconds Findings: There were esophageal mucosal changes suspicious for short-segment Rivers's esophagus present in the lower third of the esophagus. The maximum longitudinal extent of these mucosal changes was 2 cm in length. A hiatal hernia was present. Type 1 isolated gastric varices (IGV1, varices located in the fundus) with oozing blood were found in the gastric fundus. There were stigmata of recent bleeding. They were 20 mm in largest diameter. Three bands were successfully placed with incomplete eradication of varices. Bleeding had stopped at the end of the procedure. Diffuse prominent gastric folds were found in the stomach. No gross lesions were noted in the first portion of the duodenum. Impression: - Esophageal mucosal changes suspicious for short-segment Rivers's esophagus. - Hiatal hernia. - Type 1 isolated gastric varices (IGV1, varices located in the fundus), oozing blood. Incompletely eradicated. Banded. - Enlarged gastric folds. - No gross lesions in the first portion of the duodenum. - No specimens collected. Recommendation: - Discharge patient to home. - Full liquid diet today. - Continue present medications. - Use Protonix (pantoprazole) 40 mg PO BID. - Give a beta mariel with dosage titrated by the heart rate. Procedure Code(s): --- Professional --- 17802, Esophagogastroduodenoscopy, flexible, transoral; with band ligation of esophageal/gastric varices CPT copyright 2021 [employer]. All rights reserved. The codes documented in this report are preliminary and upon data coder operator review may be revised to meet current compliance requirements. Aquiles Warren DO 08/02/2023 7:44:38 AM This report has been signed electronically. Number of Addenda: 0 Note Initiated On: 08/02/2023 7:07 AM
[2023-08-02 07:45] VITALS: BP 147/89; BP 167/96; PULSE 75; RESP 16; O2SAT 99
--- NOTE | 2023-08-02 07:45 | OP.CCLET_ITS ---
08/02/2023 Luciana Garcia Do Re : Upper GI endoscopy procedure for Raleigh Chen Dear Jose This procedure was performed on Wednesday, August 02, 2023. My impressions and recommendations are as follows: Impressions : - Esophageal mucosal changes suspicious for short-segment Rivers's esophagus. - Hiatal hernia. - Type 1 isolated gastric varices (IGV1, varices located in the fundus), oozing blood. Incompletely eradicated. Banded. - Enlarged gastric folds. - No gross lesions in the first portion of the duodenum. - No specimens collected. Recommendations : - Discharge patient to home. - Full liquid diet today. - Continue present medications. - Use Protonix (pantoprazole) 40 mg PO BID. - Give a beta mariel with dosage titrated by the heart rate. My findings are described in the full procedure note, which is enclosed. If I can be of further assistance, please feel free to contact me at . Sincerely, Aquiles Warren DO 08/02/2023 7:44:38 AM This report has been signed electronically.
[2023-08-02 07:50] VITALS: BP 145/84; BP 167/96; PULSE 74; RESP 16; O2SAT 99
[2023-08-02 07:55] VITALS: BP 155/91; BP 167/96; PULSE 73; RESP 16; TEMP 36.4; O2SAT 99
[2023-08-02] MEDS: 0.9 % NaCl (Sterile) Posiflush 10 mL IV (07:55)
[2023-08-02 08:11] VITALS: BP 167/96
== END 2023-08-02 08:36 | disposition home or self-care (01) ==
LOC: EN 05:37 → AC 05:38
PROVIDERS: PCP Family Medicine; Referring Provider Family Medicine; Visit Provider Internal Medicine Gastroenterology
PROC: 0DJ08ZZ Inspection of Upper Intestinal Tract, Via Natural or Artificial Opening Endoscopic (ICD-10-PCS; CPT 43235; principal; 2023-08-02 06:55)
DX: I86.4 Gastric varices (principal); K44.9 Diaphragmatic hernia without obstruction or gangrene; Z87.891 Personal history of nicotine dependence; Z85.038 Personal history of other malignant neoplasm of large intestine; Z90.49 Acquired absence of other specified parts of digestive tract; Z92.21 Personal history of antineoplastic chemotherapy; N18.9 Chronic kidney disease, unspecified; D63.1 Anemia in chronic kidney disease; K22.9 Disease of esophagus, unspecified; R19.7 Diarrhea, unspecified; K31.89 Other diseases of stomach and duodenum
CPT/HCPCS: 43244; 82962; J7120; A4216

== ENCOUNTER → 2023-08-08 | Outpatient (CLI) | payer MEDICAID, SELFPAY ==
[2023-08-08 13:00] LABS: Hematocrit 28.4 % (40-54); Hemoglobin 9.9 g/dL (13.0-16.5); Mean Corp Hgb Conc 34.9 g/dL (32-36); Mean Platelet Vol. 9.8 fl (6.2-12.0); Platelet Count 232 K/mm3 (150-450); RBC Distribution Width CV 13.5 % (11.6-14.6); RBC Distribution Width SD 43.8 fl (35.1-43.9); Red Blood Count 3.19 M/mm3 (4.6-6.2); White Blood Count 6.4 K/mm3 (4.4-11.0)
[2023-08-08 13:20] LABS: PTHIN 181.8 pg/mL (18.4-80.1)
[2023-08-08 13:22] LABS: Albumin, Serum 2.7 g/dL (3.2-5.0); BUN 35 mg/dL (7-18); BUN/Creat Ratio 10.8 RATIO (10-20); Calcium,Total 8.4 mg/dL (8.5-10.1); Chloride 107 mmol/L (98-107); Creatinine, Serum 3.23 mg/dL (0.70-1.30); EST Glomerular Filtration Rate 21 mL/min (>60); Est Glom Filt Rate - Afr Amer 26 mL/min (>60); Glucose 216 mg/dL (74-106); Phosphorus 4.3 mg/dL (2.5-4.9); Sodium Level 135 mmol/L (136-145)
[2023-08-08 13:24] LABS: Carbamazepine (Tegretol) 11.8 ug/mL (4.0-12.0); Vitamin D,25 Hydroxy 7.4 ng/mL
[2023-08-08 13:51] LABS: Protein, Urine (Random) 654.7 mg/dL (<11.9); Protein:Creat Ratio 12812 mg/g CRE (0-200)
== END | disposition home or self-care (01) ==
LOC: LAB 12:27
PROVIDERS: Psychiatry & Neurology Neurology; PCP Family Medicine; Referring Provider Internal Medicine Nephrology; Visit Provider Internal Medicine Nephrology
DX: N18.31 Chronic kidney disease, stage 3a (principal); D64.9 Anemia, unspecified; G50.0 Trigeminal neuralgia
CPT/HCPCS: 36415; 80069; 80156; 82043; 82306; 82570; 83970; 84156; 85027

== ENCOUNTER → 2023-08-09 | Outpatient (CLI) | payer MEDICAID, SELFPAY ==
--- NOTE | 2023-08-09 12:51 | CT_ITS ---
STUDY: CT ABDOMEN AND PELVIS WITH CONTRAST REASON FOR EXAM: Male, 52 years old. Splenic vein thrombosis and gastric varices RADIATION DOSAGE (If Supplied By Facility): CTDIvol = ( 14.97 ) mGy, DLP = ( 1110.87 ) mGycm TECHNIQUE: Transaxial images were obtained from the dome of the diaphragm to the symphysis pubis without oral contrast. IV 100mL Isovue-300 was administered. Sagittal and coronal images were reconstructed. Individualized dose optimization techniques were used for this CT. COMPARISON: Comparison is made with prior study November 14, 2020. FINDINGS: The visualized lung bases are unremarkable. A dual-chamber pacemaker is seen. Coronary artery calcification. Normal liver. Normal gallbladder and extrahepatic biliary system. There is mild splenomegaly. Varices are seen in the region of the splenic hilum. The splenic vein is not opacified. The portal vein is patent. Normal pancreas. Normal bilateral adrenal glands. Stable small left renal cysts. Normal visualized stomach. Normal small intestine. Normal colon. The appendix is visualized and appears normal. Normal abdominal aorta. Normal inferior vena cava. Normal retroperitoneum. Diffuse bowel wall thickening although the bladder is not completely distended at this time. Normal abdominal wall. Calcification of the vas deferens. This is seen in patient''s with diabetes. Normal osseous structures. CT/Abdomen/Pelvis WITH Contrast IMPRESSION: Varices are seen in the splenic hilum. The splenic vein is not visualized. Stable left renal cysts. Mild splenomegaly. Diffuse bladder wall thickening although the bladder is not completely distended at this time. Electronically Signed: Steve Holguin MD at 15:19 EST ,
[2023-08-09] MEDS: 0.9 % NaCl (Sterile) Posiflush 10 mL IV (13:20)
[2023-08-09] MEDS: 0.9% Normal Saline (500mL Bag) 500 ML IV (13:30)
[2023-08-09 13:35] VITALS: BP 171/95; PULSE 74; RESP 14; TEMP 36.9; O2SAT 99; BMI 32.6
[2023-08-09 14:15] VITALS: BP 182/91; PULSE 72; RESP 14; O2SAT 99
[2023-08-09 14:34] VITALS: BP 178/89; PULSE 72; RESP 14; O2SAT 99
== END | disposition home or self-care (01) ==
LOC: CT 12:51
PROVIDERS: PCP Family Medicine; Referring Provider Internal Medicine Gastroenterology; Visit Provider Internal Medicine Gastroenterology
DX: I86.4 Gastric varices (principal)
CPT/HCPCS: 74177; J7040; Q9967; A4216

== ENCOUNTER 2023-10-16 08:35 | Emergency (ER) | payer MEDICAID, SELFPAY ==
[2023-10-16 08:35] VITALS: BP 199/93; PULSE 80; RESP 14; TEMP 36.4; O2SAT 100; BMI 32.7
--- NOTE | 2023-10-16 09:30 | EX.ED.DYSGE1 ---
HPI History of Present Illness Chief Complaint: General Illness Informant: patient Narrative Narrative: Patient is a 52-year-old male with history of hypertension, diabetes mellitus, CKD and splenic as well as gastric varices presenting with flulike symptoms. Patient developed symptoms 3 days ago including cough, congestion, myalgias, headache and low-grade temperature of 99.6. He is also had some mild diarrhea with denies any black or blood in his stool. Denies associated nausea or vomiting. His mother started having the same symptoms the following day. His cough has been intermittently productive of yellow sputum. He has been taking Tylenol for his symptoms and last had a dose just prior to arrival. He also notes that he took his morning medicines just prior to arrival today but had time to work. Denies any chest pain or difficulty breathing. Denies any swelling of his legs or rash. Is concerned because a lot of times when he gets sick like this it moves to his chest. No other complaints or concerns reported at this time. [facility] Medical History Arthritis Asthma Carpal tunnel syndrome Depressive disorder Fatty liver Former smoker GERD (gastroesophageal reflux disease) Hepatitis C High cholesterol History of alcohol abuse History of colon cancer History of echocardiogram History of edema History of pain when walking History of stress test Hx of vertigo Leg cramps Obesity Pancreatitis portacath placement Restless legs Seizure disorder Sezary disease Syncope Therapeutic drug monitoring Trigeminal nerve disorder Wears glasses Home Medications cholecalciferol (vitamin D3) 25 mcg (1,000 unit) capsule 1,000 unit PO DAILY 10/10/13 [History Last Taken 11/13/15] sertraline 100 mg tablet 100 mg PO DAILY 07/18/14 [History Last Taken 11/13/15] multivitamin with folic acid 400 mcg tablet 1 tab PO DAILY 10/21/14 [History Last Taken 11/13/15] rosuvastatin 40 mg tablet 40 mg PO DAILY 11/24/16 [History Last Taken Unknown] atenolol 50 mg tablet 50 mg PO BID 02/14/18 [History Last Taken 08/02/23] fish oil-dha-epa 1,200 mg-144 mg-216 mg capsule 1 each PO DAILY 11/14/20 [History Last Taken Unknown] aripiprazole 2 mg tablet (Abilify) 2 mg PO DAILY 12/24/20 [History Last Taken Unknown] lisinopril 40 mg tablet 40 mg PO DAILY 05/20/21 [History Last Taken 08/02/23] insulin glargine 100 unit/mL (3 mL) subcutaneous pen (Basaglar KwikPen U-100 Insulin) 25 unit subcut .QAM & HS 02/03/23 [History Last Taken Unknown] insulin lispro 100 unit/mL subcutaneous pen (Admelog SoloStar U-100 Insulin lispro) 30 unit subcut TID 02/03/23 [History Last Taken Unknown] furosemide 20 mg tablet 20 mg PO DAILY 04/27/23 [History Last Taken Unknown] doxazosin 2 mg tablet 2 mg PO DAILY #30 tabs 05/25/23 [Rx Last Taken Unknown] carbamazepine 200 mg tablet 600 mg (3 x 200 mg) PO BID #180 tabs 07/12/23 [Rx Last Taken Unknown] nadolol 20 mg tablet 20 mg PO .bid #60 tabs 08/02/23 [Rx Last Taken Unknown] pantoprazole 20 mg tablet,delayed release 40 mg (2 x 20 mg) PO Q12H #60 tabs 08/02/23 [Rx Last Taken Unknown] albuterol sulfate 90 mcg/actuation aerosol inhaler (Ventolin HFA) 1 - 2 puff inhalation Q4H PRN PRN Wheezing #1 inh 10/16/23 [Rx Last Taken Unknown] benzonatate 200 mg capsule 200 mg PO TID PRN cough #20 caps 10/16/23 [Rx Last Taken Unknown] Allergy/AdvReac Type Severity Reaction Status Date / Time doxazosin [From Cardura] Allergy Severe Bleeding Verified 10/16/23 08:36 erythromycin base Allergy Severe Hives Verified 10/16/23 08:36 loratadine [From Claritin] Allergy Severe Rash Verified 10/16/23 08:36 Family History Grandmother Cervical cancer Diabetes Hypertension Trigeminal neuralgia Mother Uterine cancer Arthritis Diabetes Hypertension Grandfather Heart disease Arthritis Diabetes Hypertension Unknown Diabetes Arthritis Father Arthritis Diabetes Hypertension Sister Diabetes Hypertension Uncle CVA (cerebral vascular accident) Aunt Cerebral aneurysm Surgical History H/O left hemicolectomy Hx of appendectomy Social History Smoking Status: Former smoker Tobacco: How many years used: 20 how long ago did patient quit smoking: quit 2003 second hand exposure: No alcohol intake: former details: quit 2003 substance use type: former substance user Date of last use: Used Marijuana since he was a teenager ROS ROS ED Constitutional Constitutional ED: Reports chills, fever(s) and subjective ENT ENT ED: Reports sore throat and other Details: Nasal congestion, ear fullness ; Denies ear pain Cardiovascular Cardiovascular: Denies chest pain Respiratory/Chest Respiratory/Chest: Reports cough and sputum; Denies dyspnea Gastrointestinal Gastrointestinal: Reports diarrhea; Denies abdominal pain, nausea or vomiting Genitourinary Genitourinary ED: Denies dysuria or hematuria Musculoskeletal Musculoskeletal: Reports myalgias; Denies back pain or neck pain Integumentary Denies rash Neurologic Neurologic: Reports headache(s); Denies weakness EXAM Physical Exam Const Vital Signs: 10/16/23 08:35 10/16/23 08:35 10/16/23 09:35 Temperature 97.6 F L Temperature Source Temporal Pulse Rate 80 Respiratory Rate 14 Respiratory Pattern Normal Blood Pressure 199/93 H 190/88 H Blood Pressure Mean 128 122 Pulse Ox 100 Oxygen Delivery Method Room Air 10/16/23 11:11 Temperature 97.6 F L Temperature Source Pulse Rate 64 Respiratory Rate 16 Respiratory Pattern Blood Pressure 170/64 H Blood Pressure Mean 99 Pulse Ox 99 Oxygen Delivery Method Positive well nourished and well developed General Appearance ED: well developed and NAD HEENT Reports TM's clear and moist mucous membranes HEENT Narrative: Nasal congestion present Tympanic Membrane ED: Yes TM's clear Eyes PERRL and EOMs intact bilaterally Neck no lymphadenopathy, supple and no JVD Chest Wall inspection of chest normal and palpation of chest normal Resp normal respiratory effort and clear to auscultation bilaterally Effort and Inspection: Negative for retractions Auscultation: Negative for wheezes or diminished lung sounds Cardio regular rate and regular rhythm GI normal to inspection, nondistended, normoactive bowel sounds and non-tender Extremity normal to inspection General Extremety ED: Negative for edema or tenderness General Extremity: Negative for edema Neuro oriented x3 Sensorium / Orientation: alert Motor Exam: Negative for general weakness Psych mental status grossly normal Skin no rashes or lesions noted and no wounds MDM MDM MDM Narrative Medical decision making narrative: Patient evaluated for flulike illness. Overall is well-appearing. Clinically does not appear dehydrated. Vital signs significant for hypertension but will recheck blood pressure and monitor. He has clear breath sounds and is 100% on room air increased work of breathing and I do not think he requires any type of breathing treatment or chest imaging at this time. Will obtain flu and COVID swab and reevaluate. Flu swab is positive for influenza A. Patient not hypoxic. Blood pressure is improving in the emergency room and on my last check it is 170 systolic. He is asymptomatic from a blood pressure standpoint. Will be discharged home with symptomatic treatment including albuterol inhaler (does have a history of bronchitis and tobacco use) as well as Tessalon Perles. Counseled to take Coricidin HBP brand medication for cough and congestion symptoms and avoid medications with Sudafed in them as this can increase his blood pressure. Given return precautions. Discharged home in stable condition. Discharge Plan Triage Chief Complaint: General Illness ED Provider: Breanna Friedman Dx/Rx/DC Orders Clinical Impression: Influenza A, Cough Instructions: ED Influenza (Adult) Prescriptions: New albuterol sulfate [Ventolin HFA] 90 mcg/actuation HFA aerosol inhaler 1 - 2 puff inhalation Q4H PRN PRN (Reason: Wheezing) Qty: 1 0RF benzonatate 200 mg capsule 200 mg PO TID PRN (Reason: cough) Qty: 20 0RF No Action lisinopril 40 mg tablet 40 mg PO DAILY Basaglar KwikPen U-100 Insulin 100 unit/mL (3 mL) insulin pen 25 unit subcut .QAM & HS insulin lispro [Admelog SoloStar U-100 Insulin] 100 unit/mL insulin pen 30 unit subcut TID Patient Comments: SLIDING SCALE Rx Instructions: 18 units @AM,Lunch, Dinner, and HS with sliding scale. carbamazepine 200 mg tablet 600 mg PO BID Qty: 180 11RF furosemide 20 mg tablet 20 mg PO DAILY cholecalciferol (vitamin D3) 1,000 UNIT capsule 1,000 unit PO DAILY Patient Comments: VITAMIN atenolol 50 mg tablet 50 mg PO BID Patient Comments: BLOOD PRESURE sertraline 100 MG tablet 100 mg PO DAILY multivitamin with folic acid 1 TABLET tablet 1 tab PO DAILY fish oil-dha-epa 1 EACH capsule 1 each PO DAILY aripiprazole [Abilify] 2 mg tablet 2 mg PO DAILY Patient Comments: take 2 tablets by mouth once daily doxazosin 2 mg tablet 2 mg PO DAILY Qty: 30 0RF nadolol 20 mg tablet 20 mg PO .bid Qty: 60 3RF pantoprazole 20 mg tablet,delayed release (DR/EC) 40 mg PO Q12H Qty: 60 3RF rosuvastatin 40 MG tablet 40 mg PO DAILY Primary Care Provider: Luciana Garcia Referrals: Luciana Garcia, [Primary Care Provider] - Activity Restrictions/Additional Instructions: Continue take your regular medicines as prescribed. You do have influenza A which likely explains your acute symptoms. You been given inhaler as well as some cough medicine to help with your symptoms. If your breathing worsens please return to the emergency room. I recommend taking [id number] Coricidin HBP for [id number] cold and flu medicine as will not affect her blood pressure. Disposition Disposition: Home, Self Care Discharge Date/Time: 10/16/23 11:12
[2023-10-16 09:35] VITALS: BP 190/88
--- OUTSIDE RECORDS SUMMARY | 2023-10-16 09:56 | XMS RPT_ITS | CCD ---
Author Name Unknown Address [address] [place] [address] Organization [facility] Care Team Providers Care Acid Crane Operator Name Role Phone New GARCIA, Jeancarlos Singh Unavailable [phone] Dutch Zhong MD Primary Care Provider DUTCH ZHONG Primary Care Unavailable LINDSAY MCMILLAN Attending Unavailable NANCY, DUTCH Granado Primary Care Unavailable DUTCH ZHONG Referring Unavailable NANCY, DUTCH Granado Primary Care Unavailable NANCY, DUTCH Granado Referring Unavailable NANCY, DUTCH Granado Attending Unavailable NANCY, DUTCH Granado Primary Care Unavailable EDEN DIAMOND Attending Unavailable NANCY, DUTCH Granado Primary Care Unavailable NANCY, DUTCH Granado Referring Unavailable NANCY, DUTCH Granado Primary Care Unavailable NANCY, DUTCH Granado Referring Unavailable NANCY, DUTCH Granado Referring Unavailable NANCY, DUTCH Granado Primary Care Unavailable NANCY, DUTCH Granado Attending Unavailable NANCY, DUTCH Granado Primary Care Unavailable NANCY, DUTCH Granado Primary Care Unavailable NANCY, DUTCH Granado Attending Unavailable DUTCH ZHONG Referring Unavailable EDEN DIAMOND Attending Unavailable DUTCH ZHONG Primary Care Unavailable DUTCH ZHONG Primary Care Unavailable NANCY, DUTCH Granado Primary Care Unavailable EDEN DIAMOND Attending Unavailable NANCY, DUTCH Granado Primary Care Unavailable DUTCH ZHONG Attending Unavailable Allergies Allergy Classification Reported Allergen(s) Allergy Type Date of Onset Reaction(s) Facility (20 sources) Erythromycin; Translations: [ERYTHROMYCIN] Drug Allergy 5 [facility] (20 sources) Loratadine; Translations: [LORATADINE] Drug Allergy 5 [facility] (20 sources) Homeopathic Products; Translations: [HOMEOPATHIC PRODUCTS] Propensity to adverse reactions 5 [facility] Work Phone: (20 sources) Lisinopril; Translations: [LISINOPRIL] Drug Allergy 2 Other: See Comments [facility] Work Phone: (20 sources) amLODIPine; Translations: [AMLODIPINE] Drug Allergy 2 Swelling [facility] Work Phone: Medications Current Medications Medication Drug Class(es) Dates Sig (Normalized) Sig (Original) amLODIPine 5 mg oral tablet (10 sources) Dihydropyridine Calcium Channel Mariel Start: 11-29-2021 End: 11-29-2022 take 1 tablet by mouth once daily amLODIPine (NORVASC) 5 mg tablet Indications: Essential hypertension Take 1 tablet by mouth once daily. 30 tablet 11 11/29/2021 11/29/2022 Active Completed/Discontinued Medications Medication Drug Class(es) Dates Sig (Normalized) Sig (Original) acetaminophen 325 mg / HYDROcodone bitartrate 5 mg oral tablet (6 sources) Opioid Agonist Start: 01-28-2022 End: 02-04-2022 take 1 tablet by mouth every eight hours as needed for pain HYDROcodone-acetami nophen (NORCO) 5-325 mg per tablet Indications: Open nondisplaced fracture of proximal phalanx of lesser toe of left foot, initial encounter Take 1 tablet by mouth every 8 hours as needed for pain for up to 7 days. 21 tablet 0 01/28/2022 02/04/2022 Problems Active Problems Problem Classification Problem Date Documented Da te Episodic/Chronic Alcohol-related disorders (20 sources) Chronic alcoholism in remission; Translations: [Alcohol dependence, in remission] Onset: 2 03-01-2012 Chronic Cancer of colon (20 sources) Malignant tumor of cecum; Translations: [Malignant neoplasm of cecum] Onset: 5 10-13-2021 Chronic Chronic kidney disease (20 sources) Chronic kidney disease stage 3A ; Translations: [Stage 3a chronic kidney disease] Onset: 1 01-14-2021 Chronic Chronic kidney disease (1 source) Chronic kidney disease; Translations: [Stage 3a chronic kidney disease (HCC)] Onset: 2 Chronic ulcer of skin (1 source) Skin ulcer; Translations: [Non-pressure chronic ulcer of skin of other sites limited to breakdown of skin] Chronic Deficiency and other anemia (1 source) Iron deficiency anemia due to blood loss; Translations: [Iron deficiency anemia secondary to blood loss (chronic)] Chronic Deficiency and other anemia (1 source) Iron deficiency anemia secondary to blood loss (chronic); Translations: [Iron deficiency anemia due to chronic blood loss] Onset: 3 Chronic Diabetes mellitus with complications (20 sources) Type 1 diabetes mellitus; Translations: [Type 1 diabetes mellitus with diabetic polyneuropathy] Onset: 9 09-27-2018 Chronic Diabetes mellitus without complication (1 source) Diabetes mellitus without complication; Translations: [Type 1 diabetes mellitus with stage 3 chronic kidney disease, unspecified whether stage 3a or 3b CKD (HCC)] Onset: 2 Disorders of lipid metabolism (20 sources) Mixed hyperlipidemia; Translations: [Mixed hyperlipidemia] Onset: 5 02-23-2012 Chronic Epilepsy; convulsions (20 sources) Seizure disorder; Translations: [Epilepsy, unspecified, not intractable, without status epilepticus] Onset: 2 10-13-2021 Chronic Esophageal disorders (8 sources) Esophageal varices; Translations: [Esophageal varices without bleeding] Onset: 3 12-01-2022 Chronic Essential hypertension (20 sources) Essential hypertension; Translations: [Essential (primary) hypertension] Onset: 5 Chronic Gastrointestinal hemorrhage (2 sources) Bleeding esophageal varices; Translations: [Esophageal varices with bleeding] Onset: 3 Chronic Hypertension with complications and secondary hypertension (4 sources) Hypertension secondary to endocrine disorder; Translations: [Hypertension secondary to endocrine disorders] Onset: 3 Chronic Immunizations and screening for infectious disease (1 source) Vaccination needed; Translations: [Encounter for immunization] Episodic Infective arthritis and osteomyelitis (except that caused by tuberculosis or sexually transmitted disease) (1 source) Osteomyelitis of forefoot; Translations: [Osteomyelitis, unspecified] Chronic Mood disorders (20 sources) Recurrent major depressive episodes; Translations: [Major depressive disorder, recurrent, unspecified] Onset: 5 06-17-2015 Chronic Mycoses (1 source) Onychomycosis; Translations: [Tinea unguium] Episodic Nervous system congenital anomalies (20 sources) Dandy-Walker syndrome; 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-23-2021 Chronic Non-Hodgkin`s lymphoma (5 sources) Sezary's disease (clinical); 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, unspecified site] Onset: 3 12-29-2022 Chronic Nutritional deficiencies (5 sources) Vitamin D deficiency; Translations: [Vitamin D deficiency, unspecified] Onset: 3 12-29-2022 Chronic Other connective tissue disease (1 source) Pain in left lower limb; Translations: [Pain in left leg] Episodic Other connective tissue disease (1 source) Pain of toe of left foot; Translations: [Pain in left toe(s)] Episodic Other connective tissue disease (1 source) Pain of toe of right foot; Translations: [Pain in right toe(s)] Episodic Other diseases of kidney and ureters (1 source) Acute nephropathy; Translations: [Disorder of kidney and ureter, unspecified] Episodic Other endocrine disorders (20 sources) Hypogonadotropic hypogonadism; Translations: [Testicular hypofunction] Onset: 3 08-23-2021 Chronic Other endocrine disorders (20 sources) Male hypogonadism; Translations: [Testicular hypofunction] Onset: 3 11-02-2018 Chronic Other endocrine disorders (1 source) Testicular hypofunction; Translations: [Hypogonadism in male] Onset: 9 Chronic Other hereditary and degenerative nervous system conditions (5 sources) Essential tremor; Translations: [Essential tremor] Onset: 3 12-29-2022 Chronic Other liver diseases (5 sources) Lesion of liver; Translations: [Liver disease, unspecified] Onset: 6 12-29-2022 Chronic Other liver diseases (1 source) Large liver; Translations: [Hepatomegaly, not elsewhere classified] Episodic Other nervous system disorders (6 sources) Polyneuropathy; Translations: [Polyneuropathy, unspecified] Onset: 3 12-29-2022 Chronic Other nutritional; endocrine; and metabolic disorders (20 sources) Obesity; Translations: [Obesity, unspecified] Onset: 0 04-28-2020 Chronic Other nutritional; endocrine; and metabolic disorders (6 sources) Obese class I; Translations: [Obesity, unspecified] Onset: 3 12-23-2022 Chronic Other nutritional; endocrine; and metabolic disorders (2 sources) Obesity, unspecified; Translations: [Obesity, Class I, BMI 30-34.9] Onset: 2 Chronic Other nutritional; endocrine; and metabolic disorders (1 source) Body mass index (BMI) 33.0-33.9, adult; Translations: [Class 1 obesity with serious comorbidity and body mass index (BMI) of 33.0 to 33.9 in adult, unspecified obesity type] Onset: 2 Chronic Other upper respiratory infections (1 source) Acute upper respiratory infection; Translations: [Acute upper respiratory infection, unspecified] Episodic Pancreatic disorders (not diabetes) (20 sources) Chronic pancreatitis; Translations: [Other chronic pancreatitis] Onset: 5 05-09-2005 Chronic Residual codes; unclassified (1 source) Edema of left lower leg; Translations: [Localized edema] Episodic Residual codes; unclassified (1 source) FH: Thrombosis; Translations: [Family history of ischemic heart disease and other diseases of the circulatory system] Episodic Unclassified (1 source) OPENED IN ERROR Past or Other Problems Problem Classification Problem Date Documented Da te Episodic/Chronic Cancer of colon (5 sources) History of malignant neoplasm of colon; Translations: [Personal history of other malignant neoplasm of large intestine] Onset: 3 12-29-2022 Episodic Conditions associated with dizziness or vertigo (20 sources) Benign paroxysmal positional vertigo; Translations: [Benign paroxysmal vertigo, unspecified ear] Onset: 2 Episodic Deficiency and other anemia (20 sources) Anemia; Translations: [Anemia, unspecified] Onset: 2 Episodic Fluid and electrolyte disorders (14 sources) Hyperkalemia; Translations: [Hyperkalemia] Onset: 3 Episodic Fracture of lower limb (8 sources) Open fracture proximal phalanx, toe ; Translations: [Nondisplaced fracture of proximal phalanx of left lesser toe(s), initial encounter for open fracture] Onset: 2 Episodic Gastrointestinal hemorrhage (12 sources) Gastrointestinal hemorrhage; Translations: [Gastrointestinal hemorrhage, unspecified] Onset: 3 Episodic Genitourinary symptoms and ill-defined conditions (5 sources) Microalbuminuria; Translations: [Proteinuria, unspecified] Onset: 3 12-29-2022 Episodic Other and unspecified benign neoplasm (20 sources) Polyp of colon; Translations: [Polyp of colon] Onset: 6 08-23-2021 Episodic Other diseases of kidney and ureters (20 sources) Cyst of kidney; Translations: [Cyst of kidney, acquired] Onset: 0 02-12-2020 Episodic Other diseases of kidney and ureters (6 sources) Renal impairment; Translations: [Disorder of kidney and ureter, unspecified] Onset: 3 Episodic Other liver diseases (1 source) Hepatomegaly, not elsewhere classified; Translations: [Hepatomegaly] Onset: 3 Episodic Other nervous system disorders (20 sources) Trigeminal neuralgia; Translations: [Trigeminal neuralgia] Onset: 5 08-23-2021 Episodic Other nervous system disorders (1 source) Trigeminal neuralgia; Translations: [Trigeminal neuralgia] Onset: 1 Episodic Other nutritional; endocrine; and metabolic disorders (5 sources) H/O: diabetes mellitus; Translations: [Personal history of other endocrine, nutritional and metabolic disease] Onset: 3 12-29-2022 Episodic Other screening for suspected conditions (not mental disorders or infectious disease) (9 sources) Patient encounter status; Translations: [Encounter for screening for malignant neoplasm of prostate] Onset: 3 Episodic Skin and subcutaneous tissue infections (5 sources) Cellulitis of toe; Translations: [Cellulitis of unspecified toe] Onset: 3 12-29-2022 Episodic Spondylosis; intervertebral disc disorders; other back problems (20 sources) Low back pain; Translations: [Lumbago] Onset: 5 09-16-2009 Episodic Syncope (5 sources) Syncope; Translations: [Syncope and collapse] Onset: 3 12-29-2022 Episodic Results Test Name Value Interpretation Reference Range Facil ity Vital Signs Date Time Vital Sign Value Performing Clinician Lenore copeland 06-23-2023 15:26-0400 Diastolic blood pressure 88 mm[Hg] Eden Diamond APRN.LEAD CASTER HELPER Work Phone: [facility] 06-23-2023 15:26-0400 Systolic blood pressure 162 mm[Hg] [facility].LEAD CASTER HELPER Work Phone: [facility] 06-23-2023 14:58-0400 Body height 172.7 cm [facility] EDUCATION ASSISTANT.LEAD CASTER HELPER Work Phone: [facility] 06-23-2023 14:58-0400 Body weight 97.5 kg [facility] EDUCATION ASSISTANT.LEAD CASTER HELPER Work Phone: [facility] 06-23-2023 14:58-0400 Heart rate 71 /min [facility] EDUCATION ASSISTANT.LEAD CASTER HELPER Work Phone: [facility] 06-23-2023 14:58-0400 SaO2% (BldA) [Mass fraction] 99 % [facility] EDUCATION ASSISTANT.LEAD CASTER HELPER Work Phone: [facility] 02-01-2023 10:26-0400 Body height 172.7 cm Dutch Zhong MD Work Phone: [facility] 02-01-2023 10:26-0400 Body weight 96.16 kg Dutch Zhong MD Work Phone: [facility] 02-01-2023 10:26-0400 Diastolic blood pressure 82 mm[Hg] Dutch Zhong MD Work Phone: [facility] 02-01-2023 10:26-0400 Heart rate 68 /min Dutch Zhong MD Work Phone: [facility] 02-01-2023 10:26-0400 SaO2% (BldA) [Mass fraction] 97 % Dutch Zhong MD Work Phone: [facility] 02-01-2023 10:26-0400 Systolic blood pressure 164 mm[Hg] Dutch Zhong MD Work Phone: [facility] 12-29-2022 09:36-0400 Body height 172.7 cm Dutch Zhong MD Work Phone: [facility] 12-29-2022 09:36-0400 Body weight 97.52 kg Dutch Zhong MD Work Phone: [facility] 12-29-2022 09:36-0400 Diastolic blood pressure 90 mm[Hg] Dutch Zhong MD Work Phone: [facility] 12-29-2022 09:36-0400 Heart rate 76 /min Dutch Zhong MD Work Phone: [facility] 12-29-2022 09:36-0400 SaO2% (BldA) [Mass fraction] 99 % Dutch Zhong MD Work Phone: [facility] 12-29-2022 09:36-0400 Systolic blood pressure 170 mm[Hg] Dutch Zhong MD Work Phone: [facility] 12-01-2022 10:15-0400 Body weight 97.61 kg Dutch Zhong MD Work Phone: [facility] 12-01-2022 10:15-0400 Diastolic blood pressure 74 mm[Hg] Dutch Zhong MD Work Phone: [facility] 12-01-2022 10:15-0400 Heart rate 75 /min Dutch Zhong MD Work Phone: [facility] 12-01-2022 10:15-0400 Respiratory rate 16 /min Dutch Zhong MD Work Phone: [facility] 12-01-2022 10:15-0400 SaO2% (BldA) [Mass fraction] 99 % Dutch Zhong MD Work Phone: [facility] 12-01-2022 10:15-0400 Systolic blood pressure 136 mm[Hg] Dutch Zhong MD Work Phone: [facility] 10-06-2022 13:17-0500 Diastolic blood pressure 79 mm[Hg] Dutch Zhong MD Work Phone: [facility] 10-06-2022 13:17-0500 Systolic blood pressure 166 mm[Hg] Dutch Zhong MD Work Phone: [facility] 10-06-2022 13:07-0500 Body weight 103.42 kg Dutch Zhong MD Work Phone: [facility] 10-06-2022 13:07-0500 Heart rate 81 /min Dutch Zhong MD Work Phone: [facility] 10-06-2022 13:07-0500 SaO2% (BldA) [Mass fraction] 98 % Dutch Zhong MD Work Phone: [facility] 09-20-2022 15:23-0500 Diastolic blood pressure 100 mm[Hg] Eden Kupiec EDUCATION ASSISTANT.LEAD CASTER HELPER Work Phone: [facility] 09-20-2022 15:23-0500 Systolic blood pressure 160 mm[Hg] Eden Kupiec EDUCATION ASSISTANT.LEAD CASTER HELPER Work Phone: [facility] 09-20-2022 14:58-0500 Body height 172.8 cm Eden Kupiec EDUCATION ASSISTANT.LEAD CASTER HELPER Work Phone: [facility] 09-20-2022 14:58-0500 Body weight 98.61 kg Eden Kupiec EDUCATION ASSISTANT.LEAD CASTER HELPER Work Phone: [facility] 09-20-2022 14:58-0500 Heart rate 90 /min Eden Kupiec EDUCATION ASSISTANT.LEAD CASTER HELPER Work Phone: [facility] 09-20-2022 14:58-0500 Respiratory rate 16 /min Eden Kupiec EDUCATION ASSISTANT.LEAD CASTER HELPER Work Phone: [facility] 09-20-2022 14:58-0500 SaO2% (BldA) [Mass fraction] 100 % Eden Kupiec EDUCATION ASSISTANT.LEAD CASTER HELPER Work Phone: [facility] 08-22-2022 10:20-0500 Body temperature 97 [degF] Ruma Ortiz EDUCATION ASSISTANT.LEAD CASTER HELPER Work Phone: [facility] 08-22-2022 10:20-0500 Body weight 102.69 kg Ruma Ortiz EDUCATION ASSISTANT.LEAD CASTER HELPER Work Phone: [facility] 08-22-2022 10:20-0500 Diastolic blood pressure 84 mm[Hg] Ruma Angel EDUCATION ASSISTANT.LEAD CASTER HELPER Work Phone: [facility] 08-22-2022 10:20-0500 Heart rate 76 /min Ruma Ortiz EDUCATION ASSISTANT.LEAD CASTER HELPER Work Phone: [facility] 08-22-2022 10:20-0500 Respiratory rate 20 /min Ruma Ortiz EDUCATION ASSISTANT.LEAD CASTER HELPER Work Phone: [facility] 08-22-2022 10:20-0500 SaO2% (BldA) [Mass fraction] 96 % Ruma Ortiz EDUCATION ASSISTANT.LEAD CASTER HELPER Work Phone: [facility] 08-22-2022 10:20-0500 Systolic blood pressure 132 mm[Hg] Ruma Ortiz EDUCATION ASSISTANT.LEAD CASTER HELPER Work Phone: [facility] 06-17-2022 14:53-0400 Diastolic blood pressure 76 mm[Hg] [facility] EDUCATION ASSISTANT.LEAD CASTER HELPER Work Phone: [facility] 06-17-2022 14:53-0400 Systolic blood pressure 140 mm[Hg] [facility].LEAD CASTER HELPER Work Phone: [facility] 06-17-2022 14:32-0400 Body height 172.7 cm [facility] EDUCATION ASSISTANT.LEAD CASTER HELPER Work Phone: [facility] 06-17-2022 14:32-0400 Body weight 99.79 kg [facility] EDUCATION ASSISTANT.LEAD CASTER HELPER Work Phone: [facility] 06-17-2022 14:32-0400 Heart rate 78 /min [facility] EDUCATION ASSIST[facility].LEAD CASTER HELPER Work Phone: [facility] 06-17-2022 14:32-0400 SaO2% (BldA) [Mass fraction] 100 % [facility] EDUCATION ASSISTANT.LEAD CASTER HELPER Work Phone: [facility] 06-02-2022 10:30-0400 Diastolic blood pressure 81 mm[Hg] Mi Nurse Work Phone: [facility] 06-02-2022 10:30-0400 Heart rate 65 /min Mi Nurse Work Phone: [facility] 06-02-2022 10:30-0400 Systolic blood pressure 151 mm[Hg] Mi Nurse Work Phone: [facility] 05-04-2022 09:36-0400 Diastolic blood pressure 88 mm[Hg] Mi Nurse Work Phone: [facility] 05-04-2022 09:36-0400 Heart rate 73 /min Mi Nurse Work Phone: [facility] 05-04-2022 09:36-0400 Systolic blood pressure 151 mm[Hg] Mi Nurse Work Phone: [facility] 03-30-2022 10:52-0400 Body height 172.7 cm Dutch Zhong MD Work Phone: [facility] 03-30-2022 10:52-0400 Body weight 96.98 kg Dutch Zhong MD Work Phone: [facility] 03-30-2022 10:52-0400 Diastolic blood pressure 82 mm[Hg] Dutch Zhong MD Work Phone: [facility] 03-30-2022 10:52-0400 Heart rate 73 /min Dutch Zhong MD Work Phone: [facility] 03-30-2022 10:52-0400 SaO2% (BldA) [Mass fraction] 98 % Dutch Zhong MD Work Phone: [facility] 03-30-2022 10:52-0400 Systolic blood pressure 154 mm[Hg] Dutch Zhong MD Work Phone: [facility] 02-04-2022 11:17-0400 Body weight 97.98 kg Eden Diamond EDUCATION ASSISTANT.LEAD CASTER HELPER Work Phone: [facility] 02-04-2022 11:17-0400 Diastolic blood pressure 80 mm[Hg] Eden Diamond EDUCATION ASSISTANT.LEAD CASTER HELPER Work Phone: [facility] 02-04-2022 11:17-0400 Heart rate 66 /min [facility] EDUCATION ASSISTANT.LEAD CASTER HELPER Work Phone: [facility] 02-04-2022 11:17-0400 SaO2% (BldA) [Mass fraction] 100 % [facility] EDUCATION ASSISTANT.LEAD CASTER HELPER Work Phone: [facility] 02-04-2022 11:17-0400 Systolic blood pressure 137 mm[Hg] [facility] EDUCATION ASSISTANT.LEAD CASTER HELPER Work Phone: [facility] 12-14-2021 10:03-0400 Diastolic blood pressure 73 mm[Hg] Mi Nurse Work Phone: [facility] 12-14-2021 10:03-0400 Heart rate 73 /min Mi Nurse Work Phone: [facility] 12-14-2021 10:03-0400 Systolic blood pressure 154 mm[Hg] Mi Nurse Work Phone: [facility] 11-27-2021 10:41-0400 Body weight 101.15 kg Dutch Zhong MD Work Phone: [facility] 11-27-2021 10:41-0400 Diastolic blood pressure 86 mm[Hg] Dutch Zhong MD Work Phone: [facility] 11-27-2021 10:41-0400 Heart rate 68 /min Dutch Zhong MD Work Phone: [facility] 11-27-2021 10:41-0400 SaO2% (BldA) [Mass fraction] 100 % Dutch Zhong MD Work Phone: [facility] 11-27-2021 10:41-0400 Systolic blood pressure 164 mm[Hg] Dutch Zhong MD Work Phone: [facility] 11-24-2021 08:55-0400 Body weight 101.15 kg Dutch Zhong MD Work Phone: [facility] 11-24-2021 08:55-0400 Diastolic blood pressure 100 mm[Hg] Dutch Zhong MD Work Phone: [facility] 11-24-2021 08:55-0400 Heart rate 80 /min Dutch Zhong MD Work Phone: [facility] 11-24-2021 08:55-0400 Respiratory rate 18 /min Dutch Zhong MD Work Phone: [facility] 11-24-2021 08:55-0400 Systolic blood pressure 174 mm[Hg] Dutch Zhong MD Work Phone: [facility] 11-19-2021 09:23-0400 Diastolic blood pressure 73 mm[Hg] Mi Nurse Work Phone: [facility] 11-19-2021 09:23-0400 Heart rate 76 /min Mi Nurse Work Phone: [facility] 11-19-2021 09:23-0400 Systolic blood pressure 130 mm[Hg] Mi Nurse Work Phone: [facility] Encounters Encounter Date Encounter Type Care Provider Facility Start: 06-23-2023 End: 06-23-2023 ambulatory DUTCH ZHONG Facility:[facility] Start: 06-23-2023 End: 06-23-2023 Patient encounter procedure Eden [facility] EDUCATION ASSISTANT.LEAD CASTER HELPER Work Phone: Endocrinology Procedures Date Procedure Procedure Detail Performing Clinician Start: 06-23-2023 Hemoglobin A1c/Hemoglobin.total in Blood Eden Louiec EDUCATION ASSISTANT.LEAD CASTER HELPER Work Phone: Start: 10-06-2022 [employer] COVI D-19 BIVALENT BOOSTER VACCINE, AGE 12+ YR Dutch Zhong MD Work Phone: Start: 09-20-2022 Gluc bld gluc mntr d ev cleared fda spec home use Eden Kupiec EDUCATION ASSISTANT.LEAD CASTER HELPER Work Phone: Start: 09-20-2022 Hemoglobin A1c/Hemoglobin.total in Blood Eden Kupiec EDUCATION ASSISTANT.LEAD CASTER HELPER Work Phone: Start: 06-17-2022 Hemoglobin A1c/Hemoglobin.total in Blood Eden Kupiec EDUCATION ASSISTANT.LEAD CASTER HELPER Work Phone: Start: 02-04-2022 Gluc bld gluc mntr d ev cleared fda spec home use Eden Diamond EDUCATION ASSISTANT.LEAD CASTER HELPER Work Phone: Start: 02-04-2022 Hemoglobin A1c/Hemoglobin.total in Blood Eden Morrisjf EDUCATION ASSISTANT.LEAD CASTER HELPER Work Phone: Start: 01-28-2022 Radex foot complete minimum 3 views Roberto Anderson Work Phone: Start: 08-26-2015 Colonoscopy Mi Nurse Work Phone: Plan of Treatment Date Care Activity Detail Author Start: 02-24-2027 Urine microalbumin profile [facility] Start: 02-08-2024 Hepatitis C antibody , confirmatory test DILATED RETINAL EXAM [facility] Start: 02-02-2024 3 comp foot exam completed DIABETIC FOOT EXAM [facility] Start: 02-02-2024 ANNUAL PCP TEAM WELDING MACHINE OPERATOR RESISTANCE MARNI DISEASE VISIT ANNUAL PCP TEAM CHRONIC DISEASE VISIT [facility] Start: 02-02-2024 SHINGRIX VACCINE (1 of 2) DURAN GRIX VACCINE (1 of 2) [facility] Immunizations Immunization Date Immunization Notes Care Provider Fa christiano 10-06-2022 COVID-19 booster vaccine, age 12+ yr, bivalent ([employer]) Dutch Zhong MD Work Phone: [facility] 12-02-2021 COVID-19 original vaccine, full dose, monovalent (MODERNA) Dutch Zhong MD Work Phone: [facility] 07-09-2021 COVID-19 original vaccine, full dose, monovalent (MODERNA) Dutch Zhong MD Work Phone: [facility] 07-09-2021 Influenza, injectabl e, Madin Nicky Canine Kidney, preservative free, quadrivalent Dutch Zhong MD Work Phone: [facility] 07-09-2021 influenza virus vacc ine, unspecified formulation Dutch Zhong MD Work Phone: [facility] 12-02-2020 COVID-19 vaccine, fu ll dose (MODERNA) Nv Nurse Work Phone: [facility] 11-04-2020 COVID-19 vaccine, fu ll dose (MODERNA) Nv Nurse Work Phone: [facility] 02-24-2017 tetanus toxoid, redu jacky diphtheria toxoid, and acellular pertussis vaccine, adsorbed Nv Nurse Work Phone: [facility] 05-28-2014 pneumococcal polysaccharide vaccine, 23 valent Nv Nurse Work Phone: [facility] 04-02-2009 pneumococcal polysaccharide vaccine, 23 valent Nv Nurse Work Phone: [facility] 04-02-2009 pneumococcal vaccine , unspecified formulation Dutch Zhong MD Work Phone: [facility] 01-18-2007 pneumococcal polysaccharide vaccine, 23 valent Nv Nurse Work Phone: [facility] Work Phone: Payers Date Payer Category Payer Medicaid [id number] 2017 Medicaid [facility] MEDIC A[facility] MEDICAID [id number] 2017-Present [phone] [address] [place] [address] Medicaid [id number] 2017 Medicaid [id number] 2017 Medicaid [id number] Social History Date Type Detail Facility Start: 07-16-2014 End: 05-04-2022 Tobacco smoking status NHIS Ex-smoker [facility] Work Phone: End: 10-27-2003 History of tobacco use Current smoker [facility] Work Phone: End: 10-27-2003 History of tobacco use Cigar Smoker [facility] Work Phone: Start: 11-19-2021 End: 06-23-2023 Alcohol intake Current non-drinker of alcohol (finding) [facility] Start: 03-01-2012 History SDOH Alcohol Comment recovering alcoholic, quit 2003 [facility] Start: 1970 Sex Assigned At Not on file [facility] Start: 11-06-2021 End: 11-16-2021 Exposure to SARS-CoV-2 (event) Unable to assess [facility] Work Phone: Start: 11-12-2021 End: 06-17-2022 Exposure to SARS-CoV-2 (event) Not sure [facility] End: 10-27-2003 History of tobacco use Cigarette Smoker [facility] Start: 07-16-2014 End: 09-09-2022 Cigarettes smoked current (pack per day) - Reported 2 [facility] Start: 07-16-2014 End: 05-04-2022 Tobacco use and exposure Smokeless tobacco non-user [facility] Start: 09-09-2022 End: 02-01-2023 Tobacco use panel [facility] National Score (1-10 0), lower number is lower risk 70 [facility] Medical Equipment Procedure Code Equipment Code Equipment Origin al Text Equipment Identifier Dates Start: 02-07-2017 End: 06-23-2023 Clinical Notes 06-03-2014 to 06-23-2023 Eden Diamond APRN.LEAD CASTER HELPER - 06/23/2023 3:15 PM EDT Note Date & Type Note Facility 06-23-2023 Note HNO ID: [id number] Author: Eden Diamond APRN.LEAD CASTER HELPER Service: ? Author Type: Nurse Practitioner Type: Progress Notes Filed: 06/23/2023 3:39 PM Note Text: Reason for Consultation: DM Type 1 Referring Physician: SELF HISTORY OF PRESENT ILLNESS Mr. Huffman is a 52 year old male presenting here today for a follow up of DM Type 1. As I recall, he was initially diagnosed with diabetes 2002. LV 12/23/22 A1C today is 7.6 in setting of anemia History of diabetes, hypertension and hyperlipidemia, retinopathy, hypogonadism,nephropathy/CKD, peripheral neuropathy, obesity, type 1 esophageal varices, GI bleed, anemia, syncope Hx of pancreaticoprivic diabetes;chronic pancreatitis. Hx of alcoholism--sober since 2003. Hx of trigeminal neuralgia and seizures. Under the care of neurology Dr. Nazia Jefferson. She has been following hyponatremia felt to be related to tegretol however the patient does not want to change medication. He plans to start care with Dr. Griffin with [place] being closer to his home. Has an appt set for next month Also reports he will start with a new primary care provider He is seeing nephrology in [place] ([facility] Under the care of hem/onc for colon cancer. Current diabetes regimen is as follows: Lantus 38 units twice daily Admelog 18 units breakfast, 18 units lunch, 18 units dinner plus SS If Blood Glucose (mg/dL) is < 150 Give 0 units 151-200 Give 1 unit 201-250 Give 2 units 251-300 Give 3 units 301-350 Give 4 units > 351 Give 5 units Previous DM medications: U500 - had mood swings and was angry and loses temper. He will not try again. Metformin-- vomiting Exercise: ADL's ; yard work. he is checking his blood glucose 1-4 times daily. he does bring a log book today for review. LDE Blood Sugar Frequency: BG ranges 90 to 392 FBS 164, 208, 120, 173, 133, 210 acL90, 93 acS 131, 194, 188 HS 367, 227, 349 Hypoglycemia frequency: denies Hypoglycemia awareness: Yes Regarding symptoms of hypoglycemia, he is not experiencing any symptoms such as polyuria, polydipsia, nocturia or rapid weight loss or blurry vision, Overall, the patient has no acute complaints at this time. Hypogonadism: States Dr. Zepeda started him on Testosterone years ago--approx 2013 Most recent dose was testosterone 200mg/ML vial---taking 180mg (0.9 mL every 2 wks) He was giving his injection himself at home. Denies hx of prostate cancer. Tried axiron in the past but was ineffective. He wished to go off testosterone 2020 and has not been taking since. HLD: Managed per Dr. 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 from pancreatitis. Villous adenoma PAST SURGICAL HISTORY Procedure Laterality Date APPENDECTOMY age 6 COLONOSCOPY FLX DX W/COLLJ SPEC WHEN PFRMD 11/06/2012 Colonoscopy repeat 1 year COLONOSCOPY FLX DX W/COLLJ SPEC WHEN PFRMD 12/04/2013 Colonoscopy COLONOSCOPY FLX DX W/COLLJ SPEC WHEN PFRMD 08/26/15 Colonoscopy ESOPHAGOGASTRODUODENOSCOPY TRANSORAL DIAGNOSTIC 11/06/2012 EGD PAST SURGICAL HISTORY OF 07/2014 right hemicolectomy FAMILY HISTORY Problem Relation Age of Onset Diabetes Mother Hypertension Mother Diabetes Father Hypertension Father Stroke Paternal Uncle Heart Paternal Uncle Hypertension Sister Hypertension Brother Hypertension Maternal Grandmother Diabetes Maternal Grandmother Cancer Maternal Grandmother melanoma Hypertension Maternal Grandfather Diabetes Maternal Grandfather Hypertension Paternal Grandmother Cancer Paternal Grandmother melanoma Hypertension Paternal Grandfather Social History Tobacco Use Smoking status: Former Packs/day: 2.00 Years: 8.00 Additional pack years: 0.00 Total pack years: 16.00 Types: Cigars, Cigarettes Quit date: 10/27/2003 Years since quittin.6 Smokeless tobacco: Never Vaping Use Vaping Use: Never used Substance Use Topics Alcohol use: No Comment: recovering alcoholic, quit 2003 Drug use: No Allergies As of Date: 06/23/2023 Allergen Noted Reaction AMLODIPINE 11/30/2021 Swelling CLARITIN [LORATADINE] 05/09/2005 Hives ERYTHROMYCIN 05/09/2005 HAYFEVER [HOMEOPATHIC PRODUCTS] 04/15/2005 Fully Assessed 06/23/2023 Current Outpatient Medications Medication Sig Dispense Refill ARIPiprazole (ABILIFY) 2 mg tablet Take 2 tablets by mouth once daily. 180 tablet 1 LISINOPRIL ORAL Take 40 mg by mouth daily at bed (more content not included)... [facility] 06-23-2023 History of Present illness Narrative Reason for Consultation: DM Type 1 Referring Physician: SELF HISTORY OF PRESENT ILLNESS Mr. Huffman is a 52 year old male presenting here today for a follow up of DM Type 1. As I recall, he was initially diagnosed with diabetes 2002. 12/23/22 A1C today is 7.6 in setting of anemia History of diabetes, hypertension and hyperlipidemia, retinopathy, hypogonadism,nephropathy/CKD, peripheral neuropathy, obesity, type 1 esophageal varices, GI bleed, anemia, syncope Hx of pancreaticoprivic diabetes;chronic pancreatitis. Hx of alcoholism--sober since 2003. Hx of trigeminal neuralgia and seizures. Under the care of neurology Dr. Nazia Jefferson. She has been following hyponatremia felt to be related to tegretol however the patient does not want to change medication. He plans to start care with Dr. Griffin with [place] being closer to his home. Has an appt set for next month Also reports he will start with a new primary care provider He is seeing nephrology in [place] ([facility] Under the care of hem/onc for colon cancer. Current diabetes regimen is as follows: Lantus 38 units twice daily Admelog 18 units breakfast, 18 units lunch, 18 units dinner plus SS If Blood Glucose (mg/dL) is < 150 Give 0 units 151-200 Give 1 unit 201-250 Give 2 units 251-300 Give 3 units 301-350 Give 4 units > 351 Give 5 units Previous DM medications: U500 - had mood swings and was angry and loses temper. He will not try again. Metformin-- vomiting Exercise: ADL's ; yard work. he is checking his blood glucose 1-4 times daily. he does bring a log book today for review. LDE Blood Sugar Frequency: BG ranges 90 to 392 FBS 164, 208, 120, 173, 133, 210 acL90, 93 acS 131, 194, 188 HS 367, 227, 349 Hypoglycemia frequency: denies Hypoglycemia awareness: Yes Regarding symptoms of hypoglycemia, he is not experiencing any symptoms such as polyuria, polydipsia, nocturia or rapid weight loss or blurry vision, Overall, the patient has no acute complaints at this time. Hypogonadism: States Dr. Zepeda started him on Testosterone years ago--approx 2013 Most recent dose was testosterone 200mg/ML vial---taking 180mg (0.9 mL every 2 wks) He was giving his injection himself at home. Denies hx of prostate cancer. Tried axiron in the past but was ineffective. He wished to go off testosterone 2020 and has not been taking since. HLD: Managed per Dr. 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 from pancreatitis. Villous adenoma PAST SURGICAL HISTORY Procedure Laterality Date APPENDECTOMY age 6 COLONOSCOPY FLX DX W/COLLJ SPEC WHEN PFRMD 11/06/2012 Colonoscopy repeat 1 year COLONOSCOPY FLX DX W/COLLJ SPEC WHEN PFRMD 12/04/2013 Colonoscopy COLONOSCOPY FLX DX W/COLLJ SPEC WHEN PFRMD 08/26/15 Colonoscopy ESOPHAGOGASTRODUODENOSCOPY TRANSORAL DIAGNOSTIC 11/06/2012 EGD PAST SURGICAL HISTORY OF 07/2014 right hemicolectomy FAMILY HISTORY Problem Relation Age of Onset Diabetes Mother Hypertension Mother Diabetes Father Hypertension Father Stroke Paternal Uncle Heart Paternal Uncle Hypertension Sister Hypertension Brother Hypertension Maternal Grandmother Diabetes Maternal Grandmother Cancer Maternal Grandmother melanoma Hypertension Maternal Grandfather Diabetes Maternal Grandfather Hypertension Paternal Grandmother Cancer Paternal Grandmother melanoma Hypertension Paternal Grandfather Social History Tobacco Use Smoking status: Former Packs/day: 2.00 Years: 8.00 Additional pack years: 0.00 Total pack years: 16.00 Types: Cigars, Cigarettes Quit date: 10/27/2003 Years since quittin.6 Smokeless tobacco: Never Vaping Use Vaping Use: Never used Substance Use Topics Alcohol use: No Comment: recovering alcoholic, quit 2003 Drug use: No Allergies As of Date: 06/23/2023 Allergen Noted Reaction AMLODIPINE 11/30/2021 Swelling CLARITIN [LORATADINE] 05/09/2005 Hives ERYTHROMYCIN 05/09/2005 HAYFEVER [HOMEOPATHIC PRODUCTS] 04/15/2005 Fully Assessed 06/23/2023 Current Outpatient Medications Medication Sig Dispense Refill ARIPiprazole (ABILIFY) 2 mg tablet Take 2 tablets by mouth once daily. 180 tablet 1 LISINOPRIL ORAL Take 40 mg by mouth daily at bedtime. atenolol (TENORMIN) 50 mg tablet Take 1 tablet by mouth twice daily. 180 tablet 3 sertraline (ZOLOFT) 100 mg tablet Take 1 tablet by mouth once daily. 90 tablet 3 omeprazole (PRILOSEC) 20 mg capsule Take 1 capsule by mouth daily before breakfast. 1/2 hr before meal. 90 capsule 3 gemfibrozil (LOPID) 600 mg tablet Take 1 tablet by mouth twice daily. 180 tablet 3 rosuvastatin (CRESTOR) 40 mg tablet Take 1 tablet by mouth once daily. 90 tablet 3 dimenhyDRINATE (DRAMAMINE) 50 mg tablet Take 50 mg by mouth at bedtime as needed. carBAMazepine (TEGRETOL) 200 mg tablet Take 3 tablets by mouth twice daily. 180 tablet 11 meclizine (ANTIVERT) 25 mg tab Take 25 mg by mouth as needed. gabapentin (NEURONTIN) 100 mg capsule take 1 capsule by mouth three times a day 90 capsule 1 Blood-Glucose Meter (FREESTYLE LITE METER) monitoring kit 1 Each as needed. 1 Each 0 sildenafil (REVATIO) 20 mg tablet 2 to 5 tabs a day prn. 30 tablet 5 omega 4-arl-hef-fish oil 300-400-1,000 mg cap Take 1 capsule by mouth once daily. 30 capsule 11 Multivitamin capsule Take 1 capsule by mouth once daily. docosahexanoic acid/epa (FISH OIL ORAL) Take by mouth once daily. Lancets lancets TEST BLOOD SUGARS 4 TIMES DAILY. E10.9. Uses insulin. 400 Each 3 VITAMIN E, DL,TOCOPHERYL ACET, (VITAMIN E, DL, ACETATE,) 1,000 unit cap Take 1 capsule by mouth once daily. FERROUS SULFATE, DRIED (IRON, DRIED, ORAL) Take 1 tablet by mouth one time a week. Ascorbic Acid 1,000 mg tablet Take 1 tablet by mouth once daily. 0 Cholecalciferol, Vitamin D3, 25 mcg (1,000 unit) cap Take 1 capsule by mouth every other day cyanocobalamin (VITAMIN B-12) 500 mcg tablet Take 2 tablets by mouth once daily insulin glargine (LANTUS SOLOSTAR U-100 INSULIN) 100 unit/mL (3 mL) Inject 38 Units subcutaneously two times a day. 90 mL 0 insulin lispro (ADMELOG SOLOSTAR U-100 INSULIN) 100 unit/mL Inject subcutaneously 18 units TID meals plus up to units daily 70 units daily 75 mL 0 blood sugar diagnostic (FREESTYLE LITE STRIPS) test strip Use 4 strips per day, IDDM, E11.65 400 Strip 0 alcohol swabs Use 8 swabs daily TO CHECK BLOOD SUGAR AND FOR INSULIN INJECTIONS 800 Each 0 Insulin Keene, Disposable, (PEN NEEDLES) 31 gauge x 1/4 ndle Use 4 pen needles daily 400 Each 0 No current facility-administered medications for this visit. REVIEW OF SYSTEMS Review of Systems Constitutional: Positive for fatigue. Respiratory: Negative for difficulty breathing. Cardiovascular: Negative for chest pain. Gastrointestinal: Negative for nausea, vomiting, diarrhea and constipation. PHYSICAL EXAMINATION BP 162/88 Pulse 71 Ht 172.7 cm (5' 8 ) Wt 97.5 kg (214 lb 15.2 oz) SpO2 99% BMI 32.68 kg/m2 Physical Exam Constitutional: Appearance: Normal appearance. He is obese. Cardiovascular: Rate and Rhythm: Normal rate and regular rhythm. Pulmonary: Effort: Pulmonary effort is normal. Breath sounds: Normal breath sounds. Skin: General: Skin is warm and dry. Neurological: Mental Status: He is alert and oriented to person, place, and time. Psychiatric: Mood and Affect: Mood normal. Behavior: Behavior normal. DATA Creatinine Date Value Ref Range Status 01/05/2023 2.20 (H) 0.73 - 1.22 mg/dL Final Hemoglobin A1C (%) Date Value 04/07/2021 9.4 Hemoglobin A1C (POCT) (%) Date Value 06/23/2023 7.6 ) No components found for: URINEALBUMIN Cholesterol, Total (mg/dL) Date Value 12/01/2022 188 10/07/2021 691 HDL Cholesterol (mg/dL) Date Value 12/01/2022 32 10/07/2021 9 LDL Cholesterol Date Value 12/01/2022 Comment: Unable to calculate due to increased Triglycerides. See LDL-Chol, Direct. 10/07/2021 Unable to calculate due to increased Triglycerides. See LDL-Chol, Direct. mg/dL Triglyceride (mg/dL) Date Value 12/01/2022 439 10/07/2021 4,600 IMPRESSION: Mr. Huffman is a 52 year old male here for evaluation of DM Type 1 complicated by hypertension, hyperlipidemia, peripheral neuropathy, retinopathy, nephropathy/CKD and hypogonadism, obesity RECOMMENDATIONS: (E10.21) 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) (primary encounter diagnosis) Comment: Glycemic control is above goal and A1C trending higher. He blood glucose is variable but tends to run consistently high before bedtime however reports missing doses prior to that. He declines CGM. Renal function/urine protein managed per nephrology. Plan: HEMOGLOBIN A1C (POC), insulin glargine (LANTUS SOLOSTAR U-100 INSULIN) 100 unit/mL (3 mL), insulin lispro (ADMELOG SOLOSTAR U-100 INSULIN) 100 unit/mL, blood sugar diagnostic (FREESTYLE LITE STRIPS) test strip, alcohol swabs, Insulin Keene, Disposable, (PEN NEEDLES) 31 gauge x 1/4 ndle Continue current insulin doses--avoid missing them. Lantus AM 38 units PM 38 units Lispro Breakfast 18 units Lunch 18 units Dinner 18 units Plus sliding scale lispro at meals if needed: If Blood Glucose (mg/dL) is < 150 Give 0 units 151-200 Give 1 unit 201-250 Give 2 units 251-300 Give 3 units 301-350 Give 4 units > 351 Give 5 units Follow up PRN (E10.42) Type 1 diabetes mellitus with diabetic polyneuropathy ([facility]) Comment: Glycemic control is above goal. He blood glucose is variable but tends to run consistently high before bedtime however reports missing doses prior to that. He declines CGM. Neuropathy is monitored and stable. Plan: HEMOGLOBIN A1C (POC), insulin glargine (LANTUS SOLOSTAR U-100 INSULIN) 100 unit/mL (3 mL), insulin lispro (ADMELOG SOLOSTAR U-100 INSULIN) 100 unit/mL, blood sugar diagnostic (FREESTYLE LITE STRIPS) test strip, alcohol swabs, Insulin Keene, Disposable, (PEN NEEDLES) 31 gauge x 1/4 ndle Continue current insulin doses--avoid missing them. Lantus AM 38 units PM 38 units Lispro Breakfast 18 units Lunch 18 units Dinner 18 units Plus sliding scale lispro at meals if needed: If Blood Glucose (mg/dL) is < 150 Give 0 units 151-200 Give 1 unit 201-250 Give 2 units 251-300 Give 3 units 301-350 Give 4 units > 351 Give 5 units Follow up PRN (E10.22, N18.30) Type 1 diabetes mellitus with stage 3 chronic kidney disease, unspecified whether stage 3a or 3b CKD ([facility]) Comment: Glycemic control is above goal. He blood glucose is variable but tends to run consistently high before bedtime however reports missing doses prior to that. He declines CGM. Renal disease per nephrology Plan: HEMOGLOBIN A1C (POC), insulin glargine (LANTUS SOLOSTAR U-100 INSULIN) 100 unit/mL (3 mL), insulin lispro (ADMELOG SOLOSTAR U-100 INSULIN) 100 unit/mL, blood sugar diagnostic (FREESTYLE LITE STRIPS) test strip, alcohol swabs, Insulin Keene, Disposable, (PEN NEEDLES) 31 gauge x 1/4 ndle Continue current insulin doses--avoid missing them. Lantus AM 38 units PM 38 units Lispro Breakfast 18 units Lunch 18 units Dinner 18 units Plus sliding scale lispro at meals if needed: If Blood Glucose (mg/dL) is < 150 Give 0 units 151-200 Give 1 unit 201-250 Give 2 units 251-300 Give 3 units 301-350 Give 4 units > 351 Give 5 units Follow up PRN (E10.3211) 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) Comment: Glycemic control is above goal. He blood glucose is variable but tends to run consistently high before bedtime however reports missing doses prior to that. He declines CGM. Retinopathy monitored and managed per retinal specialist/ophthalmology Plan: HEMOGLOBIN A1C (POC), insulin glargine (LANTUS SOLOSTAR U-100 INSULIN) 100 unit/mL (3 mL), insulin lispro (ADMELOG SOLOSTAR U-100 INSULIN) 100 unit/mL, blood sugar diagnostic (FREESTYLE LITE STRIPS) test strip, alcohol swabs, Insulin Keene, Disposable, (PEN NEEDLES) 31 gauge x 1/4 ndle Continue current insulin doses--avoid missing them. Lantus AM 38 units PM 38 units Lispro Breakfast 18 units Lunch 18 units Dinner 18 units Plus sliding scale lispro at meals if needed: If Blood Glucose (mg/dL) is < 150 Give 0 units 151-200 Give 1 unit 201-250 Give 2 units 251-300 Give 3 units 301-350 Give 4 units > 351 Give 5 units Follow up PRN (E29.1) Hypogonadism in male Comment/Plan: off supplement as of December 2020. (E78.2) Mixed hyperlipidemia Comment/Plan:Managed per Dr. Zhong. taking gemfibrozil (I10) Essential hypertension Comment/Plan: Elevated today. Check blood pressure at home and follow up with Dr. Zhong or nephrology (E66.9) Obesity, Class I, BMI 30-34.9 Comment: Body mass index is 32.68 kg/m . Plan: Encouraged increase dietary and exercise efforts as able Medical Decision Making: Level: 4 - Moderate Eden Diamond, MSN, EDUCATION ASSISTANT, PEARL PELLER-C, CDE Endocrinology [facility] Medical Office [facility]/[address], [address] [place], [place] [address] Fax: documented in this encounter [facility] documented in this encounter [facility]10-02-2023 Miscellaneous Notes* Telephone Encounter - Cathi Campbell - 05/29/2023 12:30 PM EDT Patient has been identified by name and date of : Yes, Provider Nancy Date 05-29-2023 Time 12:33 pm Last office visit in this department: 02/01/2023 RX INSTRUCTIONS: Patient aware RX will be sent to pharmacy. No need to notify patient. Patient phones requesting refills as follows: Requested Prescriptions Pending Prescriptions Disp Refills doxazosin (CARDURA) 2 mg tablet 90 tablet 3 Sig: Take 1 tablet by mouth once daily. Please review and advise. Cathi Campbell [facility] Miscellaneous Notes* Telephone Encounter - Eden Diamond APRN.CNP - 02/09/2023 12:30 PM EDT Reviewed. Mild NPDR , no mac edema bilaterally * Telephone Encounter - Nicole Cerda MA - 02/09/2023 8:39 AM EDT Received Eye Exam Report from [facility] [place] [facility]. Placed in provider's inbox for review. Route to [place] for scanning. [facility] NoteHNO ID: [id number] Author: Dutch Zhong MD Service: ? Author Type: Physician Type: Progress Notes Filed: 02/01/2023 10:55 AM Note Text: Patient presents with: Hypertension: 4wk follow up HPI: Patient presents today for office visit for follow up. HTN: Monitors BP nightly Avg 150's over 80's. Have been a little better. Denies chest pain and shortness of breath Gets headaches every once in awhile No worsening dizziness. Edema at night. Wearing compression stockings No syncope Palpitations with exertion which is unchanged. See last ov He is already on 100 mg of tenormin. He is on max lisinopril. I am hesitant to add a diuretic based on his renal function. He has had swelling with calcium channel blockers. Started on Cardura 1mg daily at last OV. No issues. Kidney function is a bit worse. Consult with pharmacy placed. Patient declined to schedule. He states [facility] [employer] has similar program he uses. Due for labs soon. Sees nephrology in February. Gets another bmp soon. MEDICATIONS: Current Outpatient Medications Medication Sig doxazosin (CARDURA) 1 mg tablet Take 1 tablet by mouth once daily. LISINOPRIL ORAL Take 40 mg by mouth daily at bedtime. insulin glargine (LANTUS SOLOSTAR U-100 INSULIN) 100 unit/mL (3 mL) Inject 38 Units subcutaneously twice daily. insulin lispro (ADMELOG SOLOSTAR U-100 INSULIN) 100 unit/mL Inject subcutaneously 18 units TID meals plus up to units daily 70 units daily blood sugar diagnostic (FREESTYLE LITE STRIPS) test strip Use 4 strips per day, IDDM, E11.65 alcohol swabs Use 8 swabs daily TO CHECK BLOOD SUGAR AND FOR INSULIN INJECTIONS atenolol (TENORMIN) 50 mg tablet Take 1 tablet by mouth twice daily. ARIPiprazole (ABILIFY) 2 mg tablet Take 2 tablets by mouth once daily. sertraline (ZOLOFT) 100 mg tablet Take 1 tablet by mouth once daily. omeprazole (PRILOSEC) 20 mg capsule Take 1 capsule by mouth daily before breakfast. 1/2 hr before meal. gemfibrozil (LOPID) 600 mg tablet Take 1 tablet by mouth twice daily. rosuvastatin (CRESTOR) 40 mg tablet Take 1 tablet by mouth once daily. dimenhyDRINATE (DRAMAMINE) 50 mg tablet Take 50 mg by mouth at bedtime as needed. Insulin [place], Disposable, (PEN NEEDLES) 31 gauge x 1/4 ndle Use 4 pen needles daily carBAMazepine (TEGRETOL) 200 mg tablet Take 3 tablets by mouth twice daily. meclizine (ANTIVERT) 25 mg tab Take 25 mg by mouth as needed. gabapentin (NEURONTIN) 100 mg capsule take 1 capsule by mouth three times a day Blood-Glucose Meter (FREESTYLE LITE METER) monitoring kit 1 Each as needed. sildenafil (REVATIO) 20 mg tablet 2 to 5 tabs a day prn. omega 9-asb-hzu-fish oil 300-400-1,000 mg cap Take 1 capsule by mouth once daily. Multivitamin capsule Take 1 capsule by mouth once daily. docosahexanoic acid/epa (FISH OIL ORAL) Take by mouth once daily. Lancets lancets TEST BLOOD SUGARS 4 TIMES DAILY. E10.9. Uses insulin. VITAMIN E, DL,TOCOPHERYL ACET, (VITAMIN E, DL, ACETATE,) 1,000 unit cap Take 1 capsule by mouth once daily. FERROUS SULFATE, DRIED (IRON, DRIED, ORAL) Take 1 tablet by mouth one time a week. Ascorbic Acid 1,000 mg tablet Take 1 tablet by mouth once daily. Cholecalciferol, Vitamin D3, 25 mcg (1,000 unit) cap Take 1 capsule by mouth every other day cyanocobalamin (VITAMIN B-12) 500 mcg tablet Take 2 tablets by mouth once daily No current facility-administered medications for this visit. 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 from pancreatitis. Villous adenoma PAST SURGICAL HISTORY Procedure Laterality Date APPENDECTOMY age 6 COLONOSCOPY FLX DX W/COLLJ SPEC WHEN PFRMD 11/06/2012 Colonoscopy repeat 1 year COLONOSCOPY FLX DX W/COLLJ SPEC WHEN PFRMD 12/04/2013 Colonoscopy COLONOSCOPY FLX DX W/COLLJ SPEC WHEN PFRMD 08/26/15 Colonoscopy ESOPHAGOGASTRODUODENOSCOPY TRANSORAL DIAGNOSTIC 11/06/2012 EGD PAST SURGICAL HISTORY OF 07/2014 right hemicolectomy FAMILY HISTORY Problem Relation Age of Onset Diabetes Mother Hypertension Mother Diabetes Father Hypertension Father Stroke Paternal Uncle Heart Paternal Uncle Hypertension Sister Hypertension Brother Hypertension Maternal Grandmother Diabetes Maternal Grandmother Cancer Maternal Grandmother melanoma Hyp (more content not included)...[facility]06-07-2023 History of Present illness Narrative* Dutch Zhong MD - 02/01/2023 10:26 AM EDT Patient presents with: Hypertension: 4wk follow up HPI: Patient presents today for office visit for follow up. HTN: Monitors BP nightly Avg 150's over 80's. Have been a little better. Denies chest pain and shortness of breath Gets headaches every once in awhile No worsening dizziness. Edema at night. Wearing compression stockings No syncope Palpitations with exertion which is unchanged. See last ov He is already on 100 mg of tenormin. He is on max lisinopril. I am hesitant to add a diuretic basedon his renal function. He has had swelling with calcium channel blockers. Started on Cardura 1mg daily at last OV. No issues. Kidney function is a bit worse. Consult with pharmacy placed. Patient declined to schedule. He states [employer] has similar program he uses. Due for labs soon. Sees nephrology in February. Gets another bmp soon. MEDICATIONS: Current Outpatient Medications Medication Sig doxazosin (CARDURA) 1 mg tablet Take 1 tablet by mouth once daily. LISINOPRIL ORAL Take 40 mg by mouth daily at bedtime. insulin glargine (LANTUS SOLOSTAR U-100 INSULIN) 100 unit/mL (3 mL) Inject 38 Units subcutaneously twice daily. insulin lispro (ADMELOG SOLOSTAR U-100 INSULIN) 100 unit/mL Inject subcutaneously 18 units TID meals plus up to units daily 70 units daily blood sugar diagnostic (FREESTYLE LITE STRIPS) test strip Use 4 strips per day, IDDM, E11.65 alcohol swabs Use 8 swabs daily TO CHECK BLOOD SUGAR AND FOR INSULIN INJECTIONS atenolol (TENORMIN) 50 mg tablet Take 1 tablet by mouth twice daily. ARIPiprazole (ABILIFY) 2 mg tablet Take 2 tablets by mouth once daily. sertraline (ZOLOFT) 100 mg tablet Take 1 tablet by mouth once daily. omeprazole (PRILOSEC) 20 mg capsule Take 1 capsule by mouth daily before breakfast. 1/2 hr before meal. gemfibrozil (LOPID) 600 mg tablet Take 1 tablet by mouth twice daily. rosuvastatin (CRESTOR) 40 mg tablet Take 1 tablet by mouth once daily. dimenhyDRINATE (DRAMAMINE) 50 mg tablet Take 50 mg by mouth at bedtime as needed. Insulin [place], Disposable, (PEN NEEDLES) 31 gauge x 08/31 ndle Use 4 pen needles daily carBAMazepine (TEGRETOL) 200 mg tablet Take 3 tablets by mouth twice daily. meclizine (ANTIVERT) 25 mg tab Take 25 mg by mouth as needed. gabapentin (NEURONTIN) 100 mg capsule take 1 capsule by mouth three times a day Blood-Glucose Meter (FREESTYLE LITE METER) monitoring kit 1 Each as needed. sildenafil (REVATIO) 20 mg tablet 2 to 5 tabs a day prn. omega 1-uhq-uic-fish oil 300-400-1,000 mg cap Take 1 capsule by mouth once daily. Multivitamin capsule Take 1 capsule by mouth once daily. docosahexanoic acid/epa (FISH OIL ORAL) Take by mouth once daily. Lancets lancets TEST BLOOD SUGARS 4 TIMES DAILY. E10.9. Uses insulin. VITAMIN E, DL,TOCOPHERYL ACET, (VITAMIN E, DL, ACETATE,) 1,000 unit cap Take 1 capsule by mouth once daily. FERROUS SULFATE, DRIED (IRON, DRIED, ORAL) Take 1 tablet by mouth one time a week. Ascorbic Acid 1,000 mg tablet Take 1 tablet by mouth once daily. Cholecalciferol, Vitamin D3, 25 mcg (1,000 unit) cap Take 1 capsule by mouth every other day cyanocobalamin (VITAMIN B-12) 500 mcg tablet Take 2 tablets by mouth once daily No current facility-administered medications for this visit. 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 from pancreatitis. Villous adenoma PAST SURGICAL HISTORY Procedure Laterality Date APPENDECTOMY age 6 COLONOSCOPY FLX DX W/COLLJ SPEC WHEN PFRMD 11/06/2012 Colonoscopy repeat 1 year COLONOSCOPY FLX DX W/COLLJ SPEC WHEN PFRMD 12/04/2013 Colonoscopy COLONOSCOPY FLX DX W/COLLJ SPEC WHEN PFRMD 08/26/15 Colonoscopy ESOPHAGOGASTRODUODENOSCOPY TRANSORAL DIAGNOSTIC 11/06/2012 EGD PAST SURGICAL HISTORY OF 07/2014 right hemicolectomy FAMILY HISTORY Problem Relation Age of Onset Diabetes Mother Hypertension Mother Diabetes Father Hypertension Father Stroke Paternal Uncle Heart Paternal Uncle Hypertension Sister Hypertension Brother Hypertension Maternal Grandmother Diabetes Maternal Grandmother Cancer Maternal Grandmother melanoma Hypertension Maternal Grandfather Diabetes Maternal Grandfather Hypertension Paternal Grandmother Cancer Paternal Grandmother melanoma Hypertension Paternal Grandfather Social History Tobacco Use Smoking status: Former Packs/day: 2.00 Years: 8.00 Pack years: 16.00 Types: Cigars, Cigarettes Quit date: 10/27/2003 Years since quittin.2 Smokeless tobacco: Never Vaping Use Vaping Use: Never used Substance Use Topics Alcohol use: No Comment: recovering alcoholic, quit 2003 Drug use: No Reviewed current medications, allergies, past medical history, surgical history, family history andsocial history today. REVIEW OF SYSTEMS All other reviewed and negative other than HPI. HEALTH MAINTENANCE: Reviewed health maintenance issues today and recommended the following in detail. BP CONTROLLED (<130/80) Never done SHINGRIX VACCINE(1 of 2) Never done DIABETIC FOOT EXAM getting this month. DILATED RETINAL EXAM due on 02/03/2023 VITALS: BP 164/82 Pulse 68 Ht 172.7 cm (5' 8 ) Wt 96.2 kg (212 lb) SpO2 97% BMI 32.23 kg/m Last 4 Encounter Wt Readings: Date: Wt: 12/29/2022 97.5 kg (215 lb) 12/23/2022 98 kg (216 lb) 12/01/2022 97.6 kg (215 lb 3.2 oz) 10/06/2022 103.4 kg (228 lb) PHYSICAL EXAMINATION: General appearance: Well appearing, alert, in no acute distress, well-hydrated, well nourished. Skin: Skin color, texture, turgor normal, no suspicious rashes or lesions Head: Normocephalic, no masses, lesions, tenderness or abnormalities Lungs: Lungs clear to auscultation. No wheezing, rhonchi, rales Heart: RRR without murmur, gallop, or rubs. No ectopy Abdomen: Normal abdominal exam, Abdomen soft, non-tender. Bowel sounds normal. No masses, organomegaly Extremities: No deformities, edema, skin discoloration, clubbing or cyanosis. Good capillary refill. Musculoskeletal: No joint swelling, deformity, or tenderness Peripheral pulses: Normal Feet:Shoes and socks removed, No deformities, ulcers, calluses, normal distal pulses, and not sensitive to monofilament bilaterally. ASSESSMENT/PLAN: 1. Polyneuropathy - ICD9: 356.9, ICD10: G62.9 (primary diagnosis) - stable. Discussed foot . 2. Moderate episode of recurrent major depressive disorder (HCC) - ICD9: 296.32, ICD10: F33.1 - refill meds. - ARIPIPRAZOLE 2 MG TABLET 3. Stage 3a chronic kidney disease (HCC) - ICD9: 585.3, ICD10: N18.31 - has repeat labs ordered. See nephrology soon. Increased bp meds. Monitor closely - DOXAZOSIN 2 MG TABLET 4. Essential hypertension - ICD9: 401.9, ICD10: I10 - Uncontrolled - as above. Follow closely. Dutch [facility] NoteHNO ID: [id number] Author: Dutch Zhong MD Service: ? Author Type: Physician Type: Progress Notes Filed: 12/29/2022 10:17 AM Note Text: Patient presents with: Follow Up HPI: Patient presents today for office visit for follow up. Was admitted into [facility] 11/26-11/28 Anemia and syncope Feeling pretty good. Some dizziness in the morning when he gets out of bed. States it happens if he moves too fast. Denies chest pain. No further gi issues. Hb is followed by heme onc. Hb is above 10 now. They are going to follow his liver with ? Fibroscan. Still following with Endo, Nephro, gastro, oncology, and neuro. HTN: Monitors BP occasionally Avg systolic 150-175 Denies chest pain and shortness of breath Gets headaches every once in awhile Some positional dizziness if he stands up too fast No edema. Wearing compression stockings No syncope Palpitations with exertion He is already on 100 mg of tenormin. He is on max lisinopril. I am hesitant to add a diuretic based on his renal function. He has had swelling with calcium channel blockers. Sugars are much better. Granted he has been anemic which may impact it as well as his renal function. His sugars are staying under 150. Now using glucerna shakes which have settled him down. Seeing nephro at the end of the year. See previous ov: DX: anemia, syncope. Was brought to ER for syncope.found to be orthostatic and had acute on chronic anemia. Has had known anemia and previously has refused gi eval despite his history. He sees Dr Ibarra, oncology who was going to start him on ? Epogen but did not get that far. Had ct of brain, eeg, ekg. Had a positive ifobt. He had his diuretic held and was given fluids. His alpha mariel was held as well. He did agree to undergo and egd by Dr Warren that showed type 1 esophageal varices without active bleeding and an avmthat was treated with a heater probe. His initial hb was 6.3 dn he was given 2 units of PRBC's. Liver enzymes were normal. MRI of the abd was done that showed mild liver and spleen enlargement but no definite cirrhosis. He does have a hx of remote etoh use that was heavy. TSH, T4 and T3 were low. His blood counts, dizziness and bp stabilized. They asked him to follow with Dr. Warren and set him up with andrzej Hernandez in [place], although he already sees Andrzej in the clinic. He feels well. No current dizziness, chest pain. Still fatigued and slightly winded with exertion but is overall feeling better since he got his blood. No edema. Bp is stable. His last hb was 7.9. renal function reduced but he does see nephrology normally. Component Latest Ref Rng AND Units 12/01/2022 12/01/2022 11:03 AM 11:03 AM WBC 3.70 - 11.00 k/uL 5.47 RBC 4.20 - 6.00 m/uL 2.87 (L) Hemoglobin 13.0 - 17.0 g/dL 8.7 (L) Hematocrit 39.0 - 51.0 % 26.2 (L) MCV 80.0 - 100.0 fL 91.3 MCH 26.0 - 34.0 pg 30.3 MCHC 30.5 - 36.0 g/dL 33.2 RDW-CV 11.5 - 15.0 % 15.1 (H) Platelet Count 150 - 400 k/uL 240 MPV 9.0 - 12.7 fL 10.7 Neut% % 61.8 Abs Neut (ANC) 1.45 - 7.50 k/uL 3.38 Lymph% % 28.7 Abs Lymph 1.00 - 4.00 k/uL 1.57 [place]% % 7.1 Abs [place] <0.87 k/uL 0.39 Eosin% % 1.3 Abs Eosin <0.46 k/uL 0.07 Baso% % 0.4 Abs Baso <0.11 k/uL <0.03 Immature Gran % % 0.7 IMMATURE GRANS (ABS) <0.10 k/uL 0.04 NRBC /100 WBC 0.0 Absolute nRBC <0.01 k/uL <0.01 DTYPE Auto Protein, Total 6.3 - 8.0 g/dL 6.4 Albumin 3.9 - 4.9 g/dL 3.7 (L) 3.7 (L) Calcium 8.5 - 10.2 mg/dL 8.9 Bilirubin, Total 0.2 - 1.3 mg/dL 0.2 Alkaline Phosphatase 38 - 113 U/L 74 AST 14 - 40 U/L 16 ALT 10 - 54 U/L 15 Glucose 74 - 99 mg/dL 114 (H) BUN 9 - 24 mg/dL 29 (H) Creatinine 0.73 - 1.22 mg/dL 2.12 (H) Sodium 136 - 144 mmol/L 137 Potassium 3.7 - 5.1 mmol/L 4.8 Chloride 97 - 105 mmol/L 105 CO2 22 - 30 mmol/L 22 Anion Gap 9 - 18 mmol/L 10 eGFR >=60 mL/min/1.73mA? 36 (L) Cholesterol, Total <200 mg/dL 188 Triglyceride <150 mg/dL 439 (H) HDL Cholesterol >39 mg/dL 32 (L) Non HDL Cholesterol <130 mg/dL 156 (H) Fasting Time hrs 3 VLDL Cholesterol 76 (H) TC:HDL Ratio <5.10 5.88 (H) LDL Cholesterol LDL:HDL Ratio Sex Hormone Bind GLB 14 - 82 nmol/L 33 Testosterone 193 - 824 ng/dL 245 Testosterone, Free Calculation 38.0 - 120.0 pg/mL 47.4 Testosterone, Percent Free 1.1 - 2.6 % 1.9 Testosterone, Bioavailable 105.0 - 324.0 ng/dL 110.7 Creatinine, Ur Random (UCRR) 20.0 - 300.0 mg/dL 93.2 Albumin, Urine Random mg/L 3,856.6 Albumin/Creat Ratio <30 mg/g 4,138 (H) Hemoglobin A1C 4.3 - 5.6 % 6.9 (H) Estimated Average Glucose mg/dL 151 LDL Cholesterol, Direct <100 mg/dL 80 Free T4 0.9 - 1.7 ng/dL 0.8 (L) Free T3 2.3 - 4.1 pg/mL 2.5 TSH 0.270 - 4.200 mIU/L 0.654 PSA Screening <2.60 ng/mL 0.69 Carbamazepine 4.0 - 12.0 ug/mL 7.6 MEDICATIONS: Current Outpatient Medications Medication Sig LISINOPRIL ORAL Take 40 mg by mouth daily at bedtime. insulin glargine (LANTUS SOLOSTAR U-100 INSULIN) 100 unit/mL (3 mL) (more content not included)...[facility]05-04-2023 History of Present illness Narrative* Dutch Zhong MD - 12/29/2022 9:36 AM EDT Patient presents with: Follow Up HPI: Patient presents today for office visit for follow up. Was admitted into [facility] 11/26-11/28 Anemia and syncope Feeling pretty good. Some dizziness in the morning when he gets out of bed. States it happens if hemoves too fast. Denies chest pain. No further gi issues. Hb is followed by heme onc. Hb is above 10 now. They are going to follow his liver with ? Fibroscan. Still following with Endo, Nephro, gastro, oncology, and neuro. HTN: Monitors BP occasionally Avg systolic 150-175 Denies chest pain and shortness of breath Gets headaches every once in awhile Some positional dizziness if he stands up too fast No edema. Wearing compression stockings No syncope Palpitations with exertion He is already on 100 mg of tenormin. He is on max lisinopril. I am hesitant to add a diuretic basedon his renal function. He has had swelling with calcium channel blockers. Sugars are much better. Granted he has been anemic which may impact it as well as his renal function. His sugars are staying under 150. Now using glucerna shakes which have settled him down. Seeing nephro at the end of the year. See previous ov: DX: anemia, syncope. Was brought to ER for syncope.found to be orthostatic and had acute on chronic anemia. Has had known anemia and previously has refused gi eval despite his history. He sees Dr Ibarra, oncology who was going to start him on ? Epogen but did not get that far. Had ct of brain, eeg, ekg. Had a positive ifobt. He had his diuretic held and was given fluids. His alpha mariel was held as well. He did agree to undergo and egd by Dr Warren that showed type 1 esophageal varices without active bleeding and an avmthat was treated with a heater probe. His initial hb was 6.3 dn he was given 2 units of PRBC's. Liver enzymes were normal. MRI of the abd was done that showed mild liver and spleen enlargement but no definite cirrhosis. He does have a hx of remote etoh use that was heavy. TSH, T4 and T3 were low. His blood counts, dizziness and bp stabilized. They asked him to follow with Dr. Warren and set him up with andrzej Hernandez in [place], although he already sees Andrzej in the clinic. He feels well. No current dizziness, chest pain. Still fatigued and slightly winded with exertion but is overall feeling better since he got his blood. No edema. Bp is stable. His last hb was 7.9. renal function reduced but he does see nephrology normally. Component Latest Ref Rng & Units 12/01/2022 12/01/2022 11:03 AM 11:03 AM WBC 3.70 - 11.00 k/uL 5.47 RBC 4.20 - 6.00 m/uL 2.87 (L) Hemoglobin 13.0 - 17.0 g/dL 8.7 (L) Hematocrit 39.0 - 51.0 % 26.2 (L) MCV 80.0 - 100.0 fL 91.3 MCH 26.0 - 34.0 pg 30.3 MCHC 30.5 - 36.0 g/dL 33.2 RDW-CV 11.5 - 15.0 % 15.1 (H) Platelet Count 150 - 400 k/uL 240 MPV 9.0 - 12.7 fL 10.7 Neut% % 61.8 Abs Neut (ANC) 1.45 - 7.50 k/uL 3.38 Lymph% % 28.7 Abs Lymph 1.00 - 4.00 k/uL 1.57 [place]% % 7.1 Abs [place] <0.87 k/uL 0.39 Eosin% % 1.3 Abs Eosin <0.46 k/uL 0.07 Baso% % 0.4 Abs Baso <0.11 k/uL <0.03 Immature Gran % % 0.7 IMMATURE GRANS (ABS) <0.10 k/uL 0.04 NRBC /100 WBC 0.0 Absolute nRBC <0.01 k/uL <0.01 DTYPE Auto Protein, Total 6.3 - 8.0 g/dL 6.4 Albumin 3.9 - 4.9 g/dL 3.7 (L) 3.7 (L) Calcium 8.5 - 10.2 mg/dL 8.9 Bilirubin, Total 0.2 - 1.3 mg/dL 0.2 Alkaline Phosphatase 38 - 113 U/L 74 AST 14 - 40 U/L 16 ALT 10 - 54 U/L 15 Glucose 74 - 99 mg/dL 114 (H) BUN 9 - 24 mg/dL 29 (H) Creatinine 0.73 - 1.22 mg/dL 2.12 (H) Sodium 136 - 144 mmol/L 137 Potassium 3.7 - 5.1 mmol/L 4.8 Chloride 97 - 105 mmol/L 105 CO2 22 - 30 mmol/L 22 Anion Gap 9 - 18 mmol/L 10 eGFR >=60 mL/min/1.73m 36 (L) Cholesterol, Total <200 mg/dL 188 Triglyceride <150 mg/dL 439 (H) HDL Cholesterol >39 mg/dL 32 (L) Non HDL Cholesterol <130 mg/dL 156 (H) Fasting Time hrs 3 VLDL Cholesterol 76 (H) TC:HDL Ratio <5.10 5.88 (H) LDL Cholesterol LDL:HDL Ratio Sex Hormone Bind GLB 14 - 82 nmol/L 33 Testosterone 193 - 824 ng/dL 245 Testosterone, Free Calculation 38.0 - 120.0 pg/mL 47.4 Testosterone, Percent Free 1.1 - 2.6 % 1.9 Testosterone, Bioavailable 105.0 - 324.0 ng/dL 110.7 Creatinine, Ur Random (UCRR) 20.0 - 300.0 mg/dL 93.2 Albumin, Urine Random mg/L 3,856.6 Albumin/Creat Ratio <30 mg/g 4,138 (H) Hemoglobin A1C 4.3 - 5.6 % 6.9 (H) Estimated Average Glucose mg/dL 151 LDL Cholesterol, Direct <100 mg/dL 80 Free T4 0.9 - 1.7 ng/dL 0.8 (L) Free T3 2.3 - 4.1 pg/mL 2.5 TSH 0.270 - 4.200 mIU/L 0.654 PSA Screening <2.60 ng/mL 0.69 Carbamazepine 4.0 - 12.0 ug/mL 7.6 MEDICATIONS: Current Outpatient Medications Medication Sig LISINOPRIL ORAL Take 40 mg by mouth daily at bedtime. insulin glargine (LANTUS SOLOSTAR U-100 INSULIN) 100 unit/mL (3 mL) Inject 38 Units subcutaneously twice daily. insulin lispro (ADMELOG SOLOSTAR U-100 INSULIN) 100 unit/mL Inject subcutaneously 18 units TID meals plus up to units daily 70 units daily blood sugar diagnostic (FREESTYLE LITE STRIPS) test strip Use 4 strips per day, IDDM, E11.65 alcohol swabs Use 8 swabs daily TO CHECK BLOOD SUGAR AND FOR INSULIN INJECTIONS atenolol (TENORMIN) 50 mg tablet Take 1 tablet by mouth twice daily. ARIPiprazole (ABILIFY) 2 mg tablet Take 2 tablets by mouth once daily. sertraline (ZOLOFT) 100 mg tablet Take 1 tablet by mouth once daily. omeprazole (PRILOSEC) 20 mg capsule Take 1 capsule by mouth daily before breakfast. 1/2 hr before meal. gemfibrozil (LOPID) 600 mg tablet Take 1 tablet by mouth twice daily. rosuvastatin (CRESTOR) 40 mg tablet Take 1 tablet by mouth once daily. lisinopril (ZESTRIL, PRINIVIL) 10 mg tablet Take 1 tablet by mouth once daily. dimenhyDRINATE (DRAMAMINE) 50 mg tablet Take 50 mg by mouth at bedtime as needed. Insulin [place], Disposable, (PEN NEEDLES) 31 gauge x 1/4 ndle Use 4 pen needles daily carBAMazepine (TEGRETOL) 200 mg tablet Take 3 tablets by mouth twice daily. meclizine (ANTIVERT) 25 mg tab Take 25 mg by mouth as needed. gabapentin (NEURONTIN) 100 mg capsule take 1 capsule by mouth three times a day midazolam (NAYZILAM) 5 mg/spray (0.1 mL) nasal spray Use 1 spray in one nostril as needed for seizures. May repeat dose in alternate nostril after 10 minutes based on response and tolerability. Blood-Glucose Meter (FREESTYLE LITE METER) monitoring kit 1 Each as needed. sildenafil (REVATIO) 20 mg tablet 2 to 5 tabs a day prn. omega 9-cnj-cjs-fish oil 300-400-1,000 mg cap Take 1 capsule by mouth once daily. Multivitamin capsule Take 1 capsule by mouth once daily. docosahexanoic acid/epa (FISH OIL ORAL) Take by mouth once daily. Lancets lancets TEST BLOOD SUGARS 4 TIMES DAILY. E10.9. Uses insulin. VITAMIN E, DL,TOCOPHERYL ACET, (VITAMIN E, DL, ACETATE,) 1,000 unit cap Take 1 capsule by mouth once daily. FERROUS SULFATE, DRIED (IRON, DRIED, ORAL) Take 1 tablet by mouth one time a week. Ascorbic Acid 1,000 mg tablet Take 1 tablet by mouth once daily. Cholecalciferol, Vitamin D3, 25 mcg (1,000 unit) cap Take 1 capsule by mouth every other day cyanocobalamin (VITAMIN B-12) 500 mcg tablet Take 2 tablets by mouth once daily No current facility-administered medications for this visit. 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 from pancreatitis. Villous adenoma PAST SURGICAL HISTORY Procedure Laterality Date APPENDECTOMY age 6 COLONOSCOPY FLX DX W/COLLJ SPEC WHEN PFRMD 11/06/2012 Colonoscopy repeat 1 year COLONOSCOPY FLX DX W/COLLJ SPEC WHEN PFRMD 12/04/2013 Colonoscopy COLONOSCOPY FLX DX W/COLLJ SPEC WHEN PFRMD 08/26/15 Colonoscopy ESOPHAGOGASTRODUODENOSCOPY TRANSORAL DIAGNOSTIC 11/06/2012 EGD PAST SURGICAL HISTORY OF 07/2014 right hemicolectomy FAMILY HISTORY Problem Relation Age of Onset Diabetes Mother Hypertension Mother Diabetes Father Hypertension Father Stroke Paternal Uncle Heart Paternal Uncle Hypertension Sister Hypertension Brother Hypertension Maternal Grandmother Diabetes Maternal Grandmother Cancer Maternal Grandmother melanoma Hypertension Maternal Grandfather Diabetes Maternal Grandfather Hypertension Paternal Grandmother Cancer Paternal Grandmother melanoma Hypertension Paternal Grandfather Social History Tobacco Use Smoking status: Former Packs/day: 2.00 Years: 8.00 Pack years: 16.00 Types: Cigars, Cigarettes Quit date: 10/27/2003 Years since quittin.1 Smokeless tobacco: Never Vaping Use Vaping Use: Never used Substance Use Topics Alcohol use: No Comment: recovering alcoholic, quit 2003 Drug use: No Reviewed current medications, allergies, past medical history, surgical history, family history andsocial history today. REVIEW OF SYSTEMS All other reviewed and negative other than HPI. VITALS: BP 170/90 Pulse 76 Ht 172.7 cm (5' 8 ) Wt 97.5 kg (215 lb) SpO2 99% BMI 32.69 kg/m Last 4 Encounter Wt Readings: Date: Wt: 12/23/2022 98 kg (216 lb) 12/01/2022 97.6 kg (215 lb 3.2 oz) 10/06/2022 103.4 kg (228 lb) 09/20/2022 98.6 kg (217 lb 6.4 oz) PHYSICAL EXAMINATION: General appearance: Well appearing, alert, in no acute distress, well-hydrated, well nourished. Skin: Skin color, texture, turgor normal, no suspicious rashes or lesions Head: Normocephalic, no masses, lesions, tenderness or abnormalities Lungs: Lungs clear to auscultation. No wheezing, rhonchi, rales Heart: RRR without murmur, gallop, or rubs. No ectopy Abdomen: Normal abdominal exam, Abdomen soft, non-tender. Bowel sounds normal. No masses, organomegaly Extremities: No deformities, edema, skin discoloration, clubbing or cyanosis. Good capillary refill. ASSESSMENT/PLAN: 1. Gastrointestinal hemorrhage, unspecified gastrointestinal hemorrhage type - ICD9: 578.9, ICD10: K92.2 (primary diagnosis) - doing well. Follow up with gi. H and H followed by hematology 2. Hypertension due to endocrine disorder - ICD9: 405.99, 259.9, ICD10: I15.2 - suboptimal control - add cardura Rto in one months. Discussed risks and benefits of new medication with the patient. Advised them to call if any side effects or questions. - BASIC METABOLIC PNL 3. Mixed hyperlipidemia - ICD9: 272.2, ICD10: E78.2 - good control - Continue current medication. 4. Seizure disorder (HCC) - ICD9: 345.90, ICD10: G40.909 - stable. 5. Stage 3a chronic kidney disease (HCC) - ICD9: 585.3, ICD10: N18.31 - recheck bmp - DOXAZOSIN 1 MG TABLET Dutch Zhong MD [facility] NoteHNO ID: [id number] Author: Eden Diamond APRN.LEAD CASTER HELPER Service: ? Author Type: Nurse Practitioner Type: Progress Notes Filed: 12/23/2022 4:55 PM Note Text: Reason for Consultation: DM Type 1 Referring Physician: SELF HISTORY OF PRESENT ILLNESS Mr. Huffman is a 52 year old male presenting here today for a follow up of DM Type 1. As I recall, he was initially diagnosed with diabetes 2002. LV 09/20/22 A1C 6.9 on 12/01/22 in setting of anemia History in addition to diabetes include: hypertension and hyperlipidemia, retinopathy, hypogonadism,nephropathy/CKD, peripheral neuropathy, obesity, type 1 esophageal varices Hx of pancreaticoprivic diabetes;chronic pancreatitis. Hx of alcoholism--sober since 2003. Hx of trigeminal neuralgia and seizures. Under the care of neurology Dr. Nazia Jefferson. She has been following hyponatremia felt to be related to tegretol however the patient does not want to change medication. He is seeing nephrology in [place] ([facility] Under the care of hem/onc for colon cancer. He had GI bleed, syncope and was hospitalized and received PRBC in October. Reports he is feeling better. Using glucerna shakes he feels helps with glucose control. Trying to avoid simple sugars. Current diabetes regimen is as follows: Lantus 38 units twice daily Admelog 18 units breakfast, 18 units lunch, 18 units dinner--adding 2-3 units if BG is high If Blood Glucose (mg/dL) is < 150 Add 0 units 151-200 Add 2 units 201-250 Add 4 units 251-300 Add 6 units 301-350 Add 8 units 351-400 Add 10 units 401-450 Add 12 units > 451 Call provider Previous DM medications: U500 - had mood swings and was angry and loses temper. He will not try again. Metformin-- vomiting Exercise: ADL's ; yard work. he is checking his blood glucose 4-6 times daily. he does bring a log book today for review. LDE Blood Sugar Frequency: BG ranges 68 to 244 FBS 148, 130, 210/108, 115, 144, 247/77, 166 acL80,123, 170 acS 179, 211, 68, 169, 98, 97 HS 241, 244, 220, 136, 169, 163 Hypoglycemia frequency: rare Hypoglycemia awareness: Yes Regarding symptoms of hypoglycemia, he is not experiencing any symptoms such as polyuria, polydipsia, nocturia or rapid weight loss or blurry vision, Overall, the patient has no acute complaints at this time. Hypogonadism: States Dr. Zepeda started him on Testosterone years ago--approx 2013 Most recent dose was testosterone 200mg/ML vial---taking 180mg (0.9 mL every 2 wks) He was giving his injection himself at home. Denies hx of prostate cancer. Tried axiron in the past but was ineffective. He wished to go off testosterone 2020 and has not been taking since. HLD: Managed per Dr. 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 from pancreatitis. Villous adenoma PAST SURGICAL HISTORY Procedure Laterality Date APPENDECTOMY age 6 COLONOSCOPY FLX DX W/COLLJ SPEC WHEN PFRMD 11/06/2012 Colonoscopy repeat 1 year COLONOSCOPY FLX DX W/COLLJ SPEC WHEN PFRMD 12/04/2013 Colonoscopy COLONOSCOPY FLX DX W/COLLJ SPEC WHEN PFRMD 08/26/15 Colonoscopy ESOPHAGOGASTRODUODENOSCOPY TRANSORAL DIAGNOSTIC 11/06/2012 EGD PAST SURGICAL HISTORY OF 07/2014 right hemicolectomy FAMILY HISTORY Problem Relation Age of Onset Diabetes Mother Hypertension Mother Diabetes Father Hypertension Father Stroke Paternal Uncle Heart Paternal Uncle Hypertension Sister Hypertension Brother Hypertension Maternal Grandmother Diabetes Maternal Grandmother Cancer Maternal Grandmother melanoma Hypertension Maternal Grandfather Diabetes Maternal Grandfather Hypertension Paternal Grandmother Cancer Paternal Grandmother melanoma Hypertension Paternal Grandfather Social History Tobacco Use Smoking status: Former Packs/day: 2.00 Years: 8.00 Pack years: 16.00 Types: Cigars, Cigarettes Quit date: 10/27/2003 Years since quittin.1 Smokeless tobacco: Never Vaping Use Vaping Use: Never used Substance Use Topics Alcohol use: No Comment: recovering alcoholic, quit 2003 Drug use: No Allergies As of Date: 12/23/2022 Allergen Noted Reaction AMLODIPINE 11/30/2021 Swelling CLARITIN [LORATADINE] 05/09/2005 Hives ERYTHROMYCIN 05/09/2005 HAYFEVER [HOMEOPATHIC PRODUCTS] 04/15/2005 Fully Assessed 12/23/2022 Current Outpatient Medications Medication Sig Dispense Refill LISINOPRIL ORAL Take 40 mg by mouth shalonda (more content not included)...[facility]04-14-2023 Miscellaneous Notes* Telephone Encounter - Linda Baxter Ma - 12/09/2022 9:14 AM EDT Patient was made aware of the results. Patient verbalizes understanding. Linda Baxter Ma * Telephone Encounter - Dutch Zhong MD - 12/09/2022 8:00 AM EDT Labs are showing anemia is stable. Kidney functions remains down. Make sure keeps continuing to follow with nephrology. [facility]23 Miscellaneous Notes* Telephone Encounter - Sarah Howard LPN - 12/02/2022 9:47 AM EDT Patient notified and verbalizes understanding. * Telephone Encounter - Dutch Zhong MD - 12/02/2022 9:39 AM EDT His repeat thyroid looks better. Keep his follow up with endo. His kidney function is worse than it was before. His anemia is stable. Recheck bmp in one week along with cbc [facility] Evaluation note* Diagnosis Gastrointestinal hemorrhage, unspecified gastrointestinal hemorrhage type- Primary Stage 3a chronic kidney disease (HCC) documented [facility] encounter [facility] NoteHNO ID: [id number] Author: Dutch Zhong MD Service: ? Author Type: Physician Type: Progress Notes Filed: 12/01/2022 1:55 PM Note Text: Patient presents with: Transition Of Care Hospital F/U: Patient reports he will be getting hemoglobin injection every Monday until otherwise decided. HPI: Patient presents today for office visit for TCM TCM call on 11/28 Admitted to [facility] 11/26-11/28/22. DX: anemia, syncope. Was brought to ER for syncope.found to be orthostatic and had acute on chronic anemia. Has had known anemia and previously has refused gi eval despite his history. He sees Dr Ibarra, oncology who was going to start him on ? Epogen but did not get that far. Had ct of brain, eeg, ekg. Had a positive ifobt. He had his diuretic held and was given fluids. His alpha mariel was held as well. He did agree to undergo and egd by Dr Warren that showed type 1 esophageal varices without active bleeding and an avmthat was treated with a heater probe. His initial hb was 6.3 dn he was given 2 units of PRBC's. Liver enzymes were normal. MRI of the abd was done that showed mild liver and spleen enlargement but no definite cirrhosis. He does have a hx of remote etoh use that was heavy. TSH, T4 and T3 were low. His blood counts, dizziness and bp stabilized. They asked him to follow with Dr. Warren and set him up with andrzej Hernandez in [place], although he already sees Andrzej in the clinic. He feels well. No current dizziness, chest pain. Still fatigued and slightly winded with exertion but is overall feeling better since he got his blood. No edema. Bp is stable. His last hb was 7.9. renal function reduced but he does see nephrology normally. MEDICATIONS: Current Outpatient Medications Medication Sig atenolol (TENORMIN) 50 mg tablet Take 1 tablet by mouth twice daily. ARIPiprazole (ABILIFY) 2 mg tablet Take 2 tablets by mouth once daily. sertraline (ZOLOFT) 100 mg tablet Take 1 tablet by mouth once daily. omeprazole (PRILOSEC) 20 mg capsule Take 1 capsule by mouth daily before breakfast. 1/2 hr before meal. gemfibrozil (LOPID) 600 mg tablet Take 1 tablet by mouth twice daily. rosuvastatin (CRESTOR) 40 mg tablet Take 1 tablet by mouth once daily. insulin lispro (ADMELOG SOLOSTAR U-100 INSULIN) 100 unit/mL Inject subcutaneously 40 at breakfast, 45 units lunch, 45 units dinner plus SS up to 140 units daily (Patient taking differently: 18 Units three times daily before meals. plus SS up to 140 units daily) lisinopril (ZESTRIL, PRINIVIL) 10 mg tablet Take 1 tablet by mouth once daily. dimenhyDRINATE (DRAMAMINE) 50 mg tablet Take 50 mg by mouth at bedtime as needed. insulin glargine (LANTUS SOLOSTAR U-100 INSULIN) 100 unit/mL (3 mL) Inject 48 Units subcutaneously twice daily. (Patient taking differently: Inject 40 Units subcutaneously twice daily.) Insulin [place], Disposable, (PEN NEEDLES) 31 gauge x 08/31 ndle Use 4 pen needles daily carBAMazepine (TEGRETOL) 200 mg tablet Take 3 tablets by mouth twice daily. meclizine (ANTIVERT) 25 mg tab Take 25 mg by mouth as needed. docosahexanoic acid/epa (FISH OIL ORAL) Take by mouth once daily. Lancets lancets TEST BLOOD SUGARS 4 TIMES DAILY. E10.9. Uses insulin. VITAMIN E, DL,TOCOPHERYL ACET, (VITAMIN E, DL, ACETATE,) 1,000 unit cap Take 1 capsule by mouth once daily. FERROUS SULFATE, DRIED (IRON, DRIED, ORAL) Take 1 tablet by mouth one time a week. Ascorbic Acid 1,000 mg tablet Take 1 tablet by mouth once daily. Cholecalciferol, Vitamin D3, 25 mcg (1,000 unit) cap Take 1 capsule by mouth every other day cyanocobalamin (VITAMIN B-12) 500 mcg tablet Take 2 tablets by mouth once daily alcohol swabs Use 8 swabs daily TO CHECK BLOOD SUGAR AND FOR INSULIN INJECTIONS blood sugar diagnostic (FREESTYLE LITE STRIPS) test strip Use 4 strips per day, IDDM, E11.65 doxazosin (CARDURA) 4 mg tablet Take 1 tablet by mouth once daily. (Patient not taking: Reported on 12/01/2022) promethazine (PHENERGAN) 12.5 mg tablet Take 1 tablet by mouth every 6 hours as needed. (Patient not taking: Reported on 12/01/2022) gabapentin (NEURONTIN) 100 mg capsule take 1 capsule by mouth three times a day midazolam (NAYZILAM) 5 mg/spray (0.1 mL) nasal spray Use 1 spray in one nostril as needed for seizures. May repeat dose in alternate nostril after 10 minutes based on response and tolerability. Blood-Glucose Meter (FREESTYLE LITE METER) monitoring kit 1 Each as needed. sildenafil (REVATIO) 20 mg tablet 2 to 5 tabs a day prn. (Patient not taking: Reported on 12/01/2022) omega 7-qtw-qbz-fish oil 300-400-1,000 mg cap Take 1 capsule by mouth once daily. Multivitamin capsule Take 1 capsule by mouth once daily. No current facility-administered medications for this visit. ALLERGIES: ALLERGIES Allergen Reactions Amlodipine Swelling Uncomfortable swelling Claritin [Loratadin* Hives Erythromycin Spacey Feeling Hayfever [Homeopath* Lisinopril Ot (more content not included)...[facility]04-[facility] History of Present illness Narrative* Dutch Zhong MD - 12/01/2022 10:31 AM EDT Patient presents with: Transition Of Care Hospital F/U: Patient reports he will be getting hemoglobin injection every Monday until otherwisedecided. HPI: Patient presents today for office visit for TCM TCM call on 11/28 Admitted to [facility] 11/26-11/28/22. DX: anemia, syncope. Was brought to ER for syncope.found to be orthostatic and had acute on chronic anemia. Has had known anemia and previously has refused gi eval despite his history. He sees Dr Ibarra, oncology who was going to start him on ? Epogen but did not get that far. Had ct of brain, eeg, ekg. Had a positive ifobt. He had his diuretic held and was given fluids. His alpha mariel was held as well. He did agree to undergo and egd by Dr Warren that showed type 1 esophageal varices without active bleeding and an avmthat was treated with a heater probe. His initial hb was 6.3 dn he was given 2 units of PRBC's. Liver enzymes were normal. MRI of the abd was done that showed mild liver and spleen enlargement but no definite cirrhosis. He does have a hx of remote etoh use that was heavy. TSH, T4 and T3 were low. His blood counts, dizziness and bp stabilized. They asked him to follow with Dr. Warren and set him up with andrzej Hernandez in [place], although he already sees Andrzej in the clinic. He feels well. No current dizziness, chest pain. Still fatigued and slightly winded with exertion but is overall feeling better since he got his blood. No edema. Bp is stable. His last hb was 7.9. renal function reduced but he does see nephrology normally. MEDICATIONS: Current Outpatient Medications Medication Sig atenolol (TENORMIN) 50 mg tablet Take 1 tablet by mouth twice daily. ARIPiprazole (ABILIFY) 2 mg tablet Take 2 tablets by mouth once daily. sertraline (ZOLOFT) 100 mg tablet Take 1 tablet by mouth once daily. omeprazole (PRILOSEC) 20 mg capsule Take 1 capsule by mouth daily before breakfast. 1/2 hr before meal. gemfibrozil (LOPID) 600 mg tablet Take 1 tablet by mouth twice daily. rosuvastatin (CRESTOR) 40 mg tablet Take 1 tablet by mouth once daily. insulin lispro (ADMELOG SOLOSTAR U-100 INSULIN) 100 unit/mL Inject subcutaneously 40 at breakfast, 45 units lunch, 45 units dinner plus SS up to 140 units daily (Patient taking differently: 18 Units three times daily before meals. plus SS up to 140 units daily) lisinopril (ZESTRIL, PRINIVIL) 10 mg tablet Take 1 tablet by mouth once daily. dimenhyDRINATE (DRAMAMINE) 50 mg tablet Take 50 mg by mouth at bedtime as needed. insulin glargine (LANTUS SOLOSTAR U-100 INSULIN) 100 unit/mL (3 mL) Inject 48 Units subcutaneously twice daily. (Patient taking differently: Inject 40 Units subcutaneously twice daily.) Insulin Keene, Disposable, (PEN NEEDLES) 31 gauge x 1/4 ndle Use 4 pen needles daily carBAMazepine (TEGRETOL) 200 mg tablet Take 3 tablets by mouth twice daily. meclizine (ANTIVERT) 25 mg tab Take 25 mg by mouth as needed. docosahexanoic acid/epa (FISH OIL ORAL) Take by mouth once daily. Lancets lancets TEST BLOOD SUGARS 4 TIMES DAILY. E10.9. Uses insulin. VITAMIN E, DL,TOCOPHERYL ACET, (VITAMIN E, DL, ACETATE,) 1,000 unit cap Take 1 capsule by mouth once daily. FERROUS SULFATE, DRIED (IRON, DRIED, ORAL) Take 1 tablet by mouth one time a week. Ascorbic Acid 1,000 mg tablet Take 1 tablet by mouth once daily. Cholecalciferol, Vitamin D3, 25 mcg (1,000 unit) cap Take 1 capsule by mouth every other day cyanocobalamin (VITAMIN B-12) 500 mcg tablet Take 2 tablets by mouth once daily alcohol swabs Use 8 swabs daily TO CHECK BLOOD SUGAR AND FOR INSULIN INJECTIONS blood sugar diagnostic (FREESTYLE LITE STRIPS) test strip Use 4 strips per day, IDDM, E11.65 doxazosin (CARDURA) 4 mg tablet Take 1 tablet by mouth once daily. (Patient not taking: Reported on12/01/2022) promethazine (PHENERGAN) 12.5 mg tablet Take 1 tablet by mouth every 6 hours as needed. (Patient not taking: Reported on 12/01/2022) gabapentin (NEURONTIN) 100 mg capsule take 1 capsule by mouth three times a day midazolam (NAYZILAM) 5 mg/spray (0.1 mL) nasal spray Use 1 spray in one nostril as needed for seizures. May repeat dose in alternate nostril after 10 minutes based on response and tolerability. Blood-Glucose Meter (FREESTYLE LITE METER) monitoring kit 1 Each as needed. sildenafil (REVATIO) 20 mg tablet 2 to 5 tabs a day prn. (Patient not taking: Reported on 12/01/2022) omega 1-uug-llz-fish oil 300-400-1,000 mg cap Take 1 capsule by mouth once daily. Multivitamin capsule Take 1 capsule by mouth once daily. No current facility-administered medications for this visit. 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 from pancreatitis. Villous adenoma PAST SURGICAL HISTORY Procedure Laterality Date APPENDECTOMY age 6 COLONOSCOPY FLX DX W/COLLJ SPEC WHEN PFRMD 11/06/2012 Colonoscopy repeat 1 year COLONOSCOPY FLX DX W/COLLJ SPEC WHEN PFRMD 12/04/2013 Colonoscopy COLONOSCOPY FLX DX W/COLLJ SPEC WHEN PFRMD 08/26/15 Colonoscopy ESOPHAGOGASTRODUODENOSCOPY TRANSORAL DIAGNOSTIC 11/06/2012 EGD PAST SURGICAL HISTORY OF 07/2014 right hemicolectomy FAMILY HISTORY Problem Relation Age of Onset Diabetes Mother Hypertension Mother Diabetes Father Hypertension Father Stroke Paternal Uncle Heart Paternal Uncle Hypertension Sister Hypertension Brother Hypertension Maternal Grandmother Diabetes Maternal Grandmother Cancer Maternal Grandmother melanoma Hypertension Maternal Grandfather Diabetes Maternal Grandfather Hypertension Paternal Grandmother Cancer Paternal Grandmother melanoma Hypertension Paternal Grandfather Social History Tobacco Use Smoking status: Former Packs/day: 2.00 Years: 8.00 Pack years: 16.00 Types: Cigars, Cigarettes Quit date: 10/27/2003 Years since quittin.1 Smokeless tobacco: Never Vaping Use Vaping Use: Never used Substance Use Topics Alcohol use: No Comment: recovering alcoholic, quit 2003 Drug use: No Reviewed current medications, allergies, past medical history, surgical history, family history andsocial history today. REVIEW OF SYSTEMS All other reviewed and negative other than HPI. HEALTH MAINTENANCE: Reviewed health maintenance issues today and recommended the following in detail. VITALS: BP 136/74 Pulse 75 Resp 16 Wt 97.6 kg (215 lb 3.2 oz) SpO2 99% BMI 32.69 kg/m Last 4 Encounter Wt Readings: Date: Wt: 12/01/2022 97.6 kg (215 lb 3.2 oz) 10/06/2022 103.4 kg (228 lb) 09/20/2022 98.6 kg (217 lb 6.4 oz) 08/22/2022 102.7 kg (226 lb 6.4 oz) PHYSICAL EXAMINATION: General appearance: Well appearing, alert, in no acute distress, well-hydrated, well nourished. Skin: Skin color, texture, turgor normal, no suspicious rashes or lesions Head: Normocephalic, no masses, lesions, tenderness or abnormalities Eyes: Anicteric sclera. Pupils are equally round and reactive to light. Extraocular movements are intact. Lungs: Lungs clear to auscultation. No wheezing, rhonchi, rales Heart: RRR without murmur, gallop, or rubs. No ectopy Abdomen: Normal abdominal exam, Abdomen soft, non-tender. Bowel sounds normal. No masses, organomegaly Extremities: No deformities, edema, skin discoloration, clubbing or cyanosis. Good capillary refill. ASSESSMENT/PLAN: 1. Gastrointestinal hemorrhage, unspecified gastrointestinal hemorrhage type - ICD9: 578.9, ICD10: K92.2 (primary diagnosis) - follow with gi. Call if any issues. Red flags for re-assessment reviewed with patient in detail. - CBC + DIFF 2. Seizure disorder (HCC) - ICD9: 345.90, ICD10: G40.909 - stable. 3. Essential hypertension - ICD9: 401.9, ICD10: I10 - good control - monitor off of meds - Goal of BP <130/80 4. Mixed hyperlipidemia - ICD9: 272.2, ICD10: E78.2 - good control - Continue current medication. 5. Stage 3a chronic kidney disease (HCC) - ICD9: 585.3, ICD10: N18.31 - follow labs.continue to see nephrology 6. Bleeding esophageal varices, unspecified esophageal varices type (HCC) - ICD9: 456.0, ICD10: I85.01 - work up er gi - CBC + DIFF - COMP METABOLIC PANEL 7. Hepatomegaly - ICD9: 789.1, ICD10: R16.0 - per gi - COMP METABOLIC PANEL 8. Decreased thyroid stimulating hormone (TSH) level - ICD9: 794.5, ICD10: R79.89 - has appts with endo pending. Recheck labs. - TSH BLD - T4 FREE/FREE THYROX - T3 FREE BLD 9. Iron deficiency anemia due to chronic blood loss - ICD9: 280.0, ICD10: D50.0 - CBC + DIFF Dutch Zhong MD [facility] NotePatient Outreach (FAMPWS) REGINALDO HUFFMAN ([id number]) 1970 M Date Time Provider Department 11/28/22 DUTCH ZHONG During your visit today, we recorded the following information about you: Lady Cruz 11/28/2022 10:11 AM Signed TRANSITION CARE MANAGEMENT (TCM) INITIAL CONTACT Motor Equipment Sergeant Outreach Provider Action/FYI: Initial contact with patient post discharge, spoke to patient. Patient identified by name and . TRANSITION CARE MANAGEMENT INITIAL OUTREACH DOCUMENTATION: Date of Outreach: 11/28/2022 Date of Discharge 11/26/2022 Some recent data might be hidden SUMMARY: -Pt discharged from [facility] on 11/26/22. -Admitted for: Syncope Do you have a hospital follow up appointment with your PCP? Appointment on 12/01/[address] Zhong. Yes. Remind patient of appointment date, time, and location. If not within 14 calendar days of discharge - please reschedule accordingly. MEDICATIONS: Many patients have questions or concerns about their medications once they are home. Were you prescribed any new medications? No. Were you told to hold any medications? No Were any of your medications discontinued? Yes. Doxazosin and Furosemide Do you have any questions about getting or taking your medications? No Your discharge instructions/After visit Summary (AVS) are important in guiding you through the recovery process. Is there anything I might help you understand? No Do you have all the necessary equipment and supplies at home? Yes Medical records from recent hospitalization: Placed for provider to review Allergies As of Date: 11/28/2022 Noted Allergy Reaction AMLODIPINE 11/30/2021 7 - Swelling Comments: Uncomfortable swelling CLARITIN (LORATADINE) 05/09/2005 4 - Hives ERYTHROMYCIN 05/09/2005 Comments: Spacey Feeling HAYFEVER (HOMEOPATHIC PRODUCTS) 04/15/2005 LISINOPRIL 11/24/2021 14 - Other: See Comments Comments: Hyperkalemia Date Reviewed: 10/06/2022 Reviewed by: Sarah Howard LPN - Fully Assessed Reason for Visit: Transition Of Care [4074] Prescriptions as of 11/28/2022 - atenolol (TENORMIN) 50 mg tablet Take 1 tablet by mouth twice daily. - ARIPiprazole (ABILIFY) 2 mg tablet Take 2 tablets by mouth once daily. - sertraline (ZOLOFT) 100 mg tablet Take 1 tablet by mouth once daily. - omeprazole (PRILOSEC) 20 mg capsule Take 1 capsule by mouth daily before breakfast. 1/2 hr before meal. - gemfibrozil (LOPID) 600 mg tablet Take 1 tablet by mouth twice daily. - rosuvastatin (CRESTOR) 40 mg tablet Take 1 tablet by mouth once daily. - insulin lispro (ADMELOG SOLOSTAR U-100 INSULIN) 100 unit/mL Inject subcutaneously 40 at breakfast, 45 units lunch, 45 units dinner plus SS up to 140 units daily - lisinopril (ZESTRIL, PRINIVIL) 10 mg tablet Take 1 tablet by mouth once daily. - dimenhyDRINATE (DRAMAMINE) 50 mg tablet Take 50 mg by mouth at bedtime as needed. - insulin glargine (LANTUS SOLOSTAR U-100 INSULIN) 100 unit/mL (3 mL) Inject 48 Units subcutaneously twice daily. - Insulin [place], Disposable, (PEN NEEDLES) 31 gauge x 1/4 ndle Use 4 pen needles daily - alcohol swabs Use 8 swabs daily TO CHECK BLOOD SUGAR AND FOR INSULIN INJECTIONS - blood sugar diagnostic (FREESTYLE LITE STRIPS) test strip Use 4 strips per day, IDDM, E11.65 - carBAMazepine (TEGRETOL) 200 mg tablet Take 3 tablets by mouth twice daily. - doxazosin (CARDURA) 4 mg tablet Take 1 tablet by mouth once daily. - meclizine (ANTIVERT) 25 mg tab Take 25 mg by mouth as needed. - promethazine (PHENERGAN) 12.5 mg tablet Take 1 tablet by mouth every 6 hours as needed. - gabapentin (NEURONTIN) 100 mg capsule take 1 capsule by mouth three times a day - midazolam (NAYZILAM) 5 mg/spray (0.1 mL) nasal spray Use 1 spray in one nostril as needed for seizures. May repeat dose in alternate nostril after 10 minutes based on response and tolerability. - Blood-Glucose Meter (FREESTYLE LITE METER) monitoring kit 1 Each as needed. - sildenafil (REVATIO) 20 mg tablet 2 to 5 tabs a day prn. - omega 2-gsr-atu-fish oil 300-400-1,000 mg cap Take 1 capsule by mouth once daily. - Multivitamin capsule Take 1 capsule by mouth once daily. - docosahexanoic acid/epa (FISH OIL ORAL) Take by mouth once daily. - Lancets lancets TEST BLOOD SUGARS 4 TIMES DAILY. E10.9. Uses insulin. - VITAMIN E, DL,TOCOPHERYL ACET, (VITAMIN E, DL, ACETATE,) 1,000 unit cap Take 1 capsule by mouth once daily. - FERROUS SULFATE, DRIED (IRON, DRIED, ORAL) Take 1 tablet by mouth one time a week. - Ascorbic Acid 1,000 mg tablet Take 1 tablet by mouth once daily. - Cholecalciferol, Vitamin D3, 25 mcg (1,000 unit) cap Take 1 capsule by mouth every other day - cyanocobalamin (VITAMIN B-12) 500 mcg tablet Take 2 tablets by mouth once daily Problem List As Of Date 11/28/2022 Noted Resolved Essential hypertension (more content not included)...[facility] 11-28-2022 NoteHNO ID: [id number] Author: Lady Cruz Service: ? Author Type: ? Type: Progress Notes Filed: 11/28/2022 10:11 AM Note Text: TRANSITION CARE MANAGEMENT (TCM) INITIAL CONTACT Motor Equipment Sergeant Outreach Provider Action/FYI: Initial contact with patient post discharge, spoke to patient. Patient identified by name and . TRANSITION CARE MANAGEMENT INITIAL OUTREACH DOCUMENTATION: Date of Outreach: 11/28/2022 Date of Discharge 11/26/2022 Some recent data might be hidden SUMMARY: -Pt discharged from [facility] on 11/26/22. -Admitted for: Syncope Do you have a hospital follow up appointment with your PCP? Appointment on 12/01/[address] Zhong. Yes. Remind patient of appointment date, time, and location. If not within 14 calendar days of discharge - please reschedule accordingly. MEDICATIONS: Many patients have questions or concerns about their medications once they are home. Were you prescribed any new medications? No. Were you told to hold any medications? No Were any of your medications discontinued? Yes. Doxazosin and Furosemide Do you have any questions about getting or taking your medications? No Your discharge instructions/After visit Summary (AVS) are important in guiding you through the recovery process. Is there anything I might help you understand? No Do you have all the necessary equipment and supplies at home? Yes Medical records from recent hospitalization: [facility] of Present illness Narrative* Lady Cruz - 11/28/2022 9:55 AM EDT TRANSITION CARE MANAGEMENT (TCM) INITIAL CONTACT Motor Equipment Sergeant Outreach Provider Action/FYI: Initial contact with patient post discharge, spoke to patient. Patient identified by name and . TRANSITION CARE MANAGEMENT INITIAL OUTREACH DOCUMENTATION: Date of Outreach: 11/28/2022 Date of Discharge 11/26/2022 Some recent data might be hidden SUMMARY: -Pt discharged from [facility] on 11/26/22. -Admitted for: Syncope Do you have a hospital follow up appointment with your PCP? Appointment on 12/01/[address] Zhong. Yes. Remind patient of appointment date, time, and location. If not within 14 calendar days of discharge - please reschedule accordingly. MEDICATIONS: Many patients have questions or concerns about their medications once they are home. Were you prescribed any new medications? No. Were you told to hold any medications? No Were any of your medications discontinued? Yes. Doxazosin and Furosemide Do you have any questions about getting or taking your medications? No Your discharge instructions/After visit Summary (AVS) are important in guiding you through the recovery process. Is there anything I might help you understand? No Do you have all the necessary equipment and supplies at home? Yes Medical records from recent hospitalization: Placed for provider to review [facility] NoteHNO ID: [id number] Author: Dutch Zhong MD Service: ? Author Type: Physician Type: Progress Notes Filed: 10/06/2022 2:13 PM Note Text: Patient presents with: Hypertension HPI: Patient presents today for office visit for follow up. Is wearing compression stockings and edema is well controlled. Sugars had been better until yesterday after over eating. 68-181 range overall. Rare hypoglycemic spells. Saw endo recently. He was not taking meds faithfully but is now. Sees Dr. Ibarra. Has followed with nephrology. They are adding a water pill . He is unsure of what or dose. Suggested we could have him follow up with one of us after. No seizures. No change in bowels. Moods have been ok. MEDICATIONS: Current Outpatient Medications Medication Sig lisinopril (ZESTRIL, PRINIVIL) 10 mg tablet Take 1 tablet by mouth once daily. insulin glargine (LANTUS SOLOSTAR U-100 INSULIN) 100 unit/mL (3 mL) Inject 48 Units subcutaneously twice daily. atenolol (TENORMIN) 50 mg tablet Take 1 tablet by mouth twice daily. ARIPiprazole (ABILIFY) 2 mg tablet Take 2 tablets by mouth once daily. carBAMazepine (TEGRETOL) 200 mg tablet Take 3 tablets by mouth twice daily. doxazosin (CARDURA) 4 mg tablet Take 1 tablet by mouth once daily. sertraline (ZOLOFT) 100 mg tablet Take 1 tablet by mouth once daily. gabapentin (NEURONTIN) 100 mg capsule take 1 capsule by mouth three times a day omeprazole (PRILOSEC) 20 mg capsule Take 1 capsule by mouth daily before breakfast. 1/2 hr before meal. gemfibrozil (LOPID) 600 mg tablet Take 1 tablet by mouth twice daily. rosuvastatin (CRESTOR) 40 mg tablet Take 1 tablet by mouth once daily. omega 3-fmr-gjc-fish oil 300-400-1,000 mg cap Take 1 capsule by mouth once daily. Multivitamin capsule Take 1 capsule by mouth once daily. docosahexanoic acid/epa (FISH OIL ORAL) Take by mouth once daily. VITAMIN E, DL,TOCOPHERYL ACET, (VITAMIN E, DL, ACETATE,) 1,000 unit cap Take 1 capsule by mouth once daily. FERROUS SULFATE, DRIED (IRON, DRIED, ORAL) Take 1 tablet by mouth one time a week. Ascorbic Acid 1,000 mg tablet Take 1 tablet by mouth once daily. Cholecalciferol, Vitamin D3, 25 mcg (1,000 unit) cap Take 1 capsule by mouth every other day cyanocobalamin (VITAMIN B-12) 500 mcg tablet Take 2 tablets by mouth once daily dimenhyDRINATE (DRAMAMINE) 50 mg tablet Take 50 mg by mouth at bedtime as needed. insulin lispro ([facility] INSULIN) 100 unit/mL Inject subcutaneously 40 at breakfast, 45 units lunch, 45 units dinner plus SS up to 140 units daily (Patient not taking: Reported on 10/06/2022) Insulin [place], Disposable, (PEN NEEDLES) 31 gauge x / ndle Use 4 pen needles daily alcohol swabs Use 8 swabs daily TO CHECK BLOOD SUGAR AND FOR INSULIN INJECTIONS blood sugar diagnostic (FREESTYLE LITE STRIPS) test strip Use 4 strips per day, IDDM, E11.65 meclizine (ANTIVERT) 25 mg tab Take 25 mg by mouth as needed. promethazine (PHENERGAN) 12.5 mg tablet Take 1 tablet by mouth every 6 hours as needed. midazolam (NAYZILAM) 5 mg/spray (0.1 mL) nasal spray Use 1 spray in one nostril as needed for seizures. May repeat dose in alternate nostril after 10 minutes based on response and tolerability. Blood-Glucose Meter (FREESTYLE LITE METER) monitoring kit 1 Each as needed. sildenafil (REVATIO) 20 mg tablet 2 to 5 tabs a day prn. Lancets lancets TEST BLOOD SUGARS 4 TIMES DAILY. E10.9. Uses insulin. No current facility-administered medications for this visit. 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 from pancreatitis. Villous adenoma PAST SURGICAL HISTORY Procedure Laterality Date APPENDECTOMY age 6 COLONOSCOPY FLX DX W/COLLJ SPEC WHEN PFRMD 11/06/2012 Colonoscopy repeat 1 year COLONOSCOPY FLX DX W/COLLJ SPEC WHEN PFRMD 12/04/2013 Colonoscopy COLONOSCOPY FLX DX W/COLLJ SPEC WHEN PFRMD 08/26/15 Colonoscopy ESOPHAGOGASTRODUODENOSCOPY TRANSORAL DIAGNOSTIC 11/06/2012 EGD PAST SURGICAL HISTORY OF 07/2014 right hemicolectomy FAMILY HISTORY Problem Relation Age of Onset Diabetes Mother Hypertension Mother Diabetes Father Hypertension Father Stroke Paternal Uncle Heart Paternal Uncle Hypertension Sister Hyp (more content not included)...[facility] History of Present illness Narrative* Dutch Zhong MD - 10/06/2022 1:20 PM EST Patient presents with: Hypertension HPI: Patient presents today for office visit for follow up. Is wearing compression stockings and edema is well controlled. Sugars had been better until yesterday after over eating. 68-181 range overall. Rare hypoglycemic spells. Saw endo recently. He was not taking meds faithfully but is now. Sees Dr. Ibarra. Has followed with nephrology. They are adding a water pill . He is unsure of what or dose. Suggested we could have him follow up with one of us after. No seizures. No change in bowels. Moods have been ok. MEDICATIONS: Current Outpatient Medications Medication Sig lisinopril (ZESTRIL, PRINIVIL) 10 mg tablet Take 1 tablet by mouth once daily. insulin glargine (LANTUS SOLOSTAR U-100 INSULIN) 100 unit/mL (3 mL) Inject 48 Units subcutaneously twice daily. atenolol (TENORMIN) 50 mg tablet Take 1 tablet by mouth twice daily. ARIPiprazole (ABILIFY) 2 mg tablet Take 2 tablets by mouth once daily. carBAMazepine (TEGRETOL) 200 mg tablet Take 3 tablets by mouth twice daily. doxazosin (CARDURA) 4 mg tablet Take 1 tablet by mouth once daily. sertraline (ZOLOFT) 100 mg tablet Take 1 tablet by mouth once daily. gabapentin (NEURONTIN) 100 mg capsule take 1 capsule by mouth three times a day omeprazole (PRILOSEC) 20 mg capsule Take 1 capsule by mouth daily before breakfast. 1/2 hr before meal. gemfibrozil (LOPID) 600 mg tablet Take 1 tablet by mouth twice daily. rosuvastatin (CRESTOR) 40 mg tablet Take 1 tablet by mouth once daily. omega 1-ctp-xbz-fish oil 300-400-1,000 mg cap Take 1 capsule by mouth once daily. Multivitamin capsule Take 1 capsule by mouth once daily. docosahexanoic acid/epa (FISH OIL ORAL) Take by mouth once daily. VITAMIN E, DL,TOCOPHERYL ACET, (VITAMIN E, DL, ACETATE,) 1,000 unit cap Take 1 capsule by mouth once daily. FERROUS SULFATE, DRIED (IRON, DRIED, ORAL) Take 1 tablet by mouth one time a week. Ascorbic Acid 1,000 mg tablet Take 1 tablet by mouth once daily. Cholecalciferol, Vitamin D3, 25 mcg (1,000 unit) cap Take 1 capsule by mouth every other day cyanocobalamin (VITAMIN B-12) 500 mcg tablet Take 2 tablets by mouth once daily dimenhyDRINATE (DRAMAMINE) 50 mg tablet Take 50 mg by mouth at bedtime as needed. insulin lispro (ADMELOG SOLOSTAR U-100 INSULIN) 100 unit/mL Inject subcutaneously 40 at breakfast, 45 units lunch, 45 units dinner plus SS up to 140 units daily (Patient not taking: Reported on 10/06/2022) Insulin [place], Disposable, (PEN NEEDLES) 31 gauge x 1/4 ndle Use 4 pen needles daily alcohol swabs Use 8 swabs daily TO CHECK BLOOD SUGAR AND FOR INSULIN INJECTIONS blood sugar diagnostic (FREESTYLE LITE STRIPS) test strip Use 4 strips per day, IDDM, E11.65 meclizine (ANTIVERT) 25 mg tab Take 25 mg by mouth as needed. promethazine (PHENERGAN) 12.5 mg tablet Take 1 tablet by mouth every 6 hours as needed. midazolam (NAYZILAM) 5 mg/spray (0.1 mL) nasal spray Use 1 spray in one nostril as needed for seizures. May repeat dose in alternate nostril after 10 minutes based on response and tolerability. Blood-Glucose Meter (FREESTYLE LITE METER) monitoring kit 1 Each as needed. sildenafil (REVATIO) 20 mg tablet 2 to 5 tabs a day prn. Lancets lancets TEST BLOOD SUGARS 4 TIMES DAILY. E10.9. Uses insulin. No current facility-administered medications for this visit. 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 from pancreatitis. Villous adenoma PAST SURGICAL HISTORY Procedure Laterality Date APPENDECTOMY age 6 COLONOSCOPY FLX DX W/COLLJ SPEC WHEN PFRMD 11/06/2012 Colonoscopy repeat 1 year COLONOSCOPY FLX DX W/COLLJ SPEC WHEN PFRMD 12/04/2013 Colonoscopy COLONOSCOPY FLX DX W/COLLJ SPEC WHEN PFRMD 08/26/15 Colonoscopy ESOPHAGOGASTRODUODENOSCOPY TRANSORAL DIAGNOSTIC 11/06/2012 EGD PAST SURGICAL HISTORY OF 07/2014 right hemicolectomy FAMILY HISTORY Problem Relation Age of Onset Diabetes Mother Hypertension Mother Diabetes Father Hypertension Father Stroke Paternal Uncle Heart Paternal Uncle Hypertension Sister Hypertension Brother Hypertension Maternal Grandmother Diabetes Maternal Grandmother Cancer Maternal Grandmother melanoma Hypertension Maternal Grandfather Diabetes Maternal Grandfather Hypertension Paternal Grandmother Cancer Paternal Grandmother melanoma Hypertension Paternal Grandfather Social History Tobacco Use Smoking status: Former Packs/day: 2.00 Years: 8.00 Pack years: 16.00 Types: Cigars, Cigarettes Quit date: 10/27/2003 Years since quittin.9 Smokeless tobacco: Never Vaping Use Vaping Use: Never used Substance Use Topics Alcohol use: No Comment: recovering alcoholic, quit 2003 Drug use: No Reviewed current medications, allergies, past medical history, surgical history, family history andsocial history today. REVIEW OF SYSTEMS All other reviewed and negative other than HPI. HEALTH MAINTENANCE: Reviewed health maintenance issues today and recommended the following in detail. HEPATITIS B(1 of 3 - 3-dose series) - done SHINGRIX VACCINE(1 of 2) Never done COVID-19 VACCINE(5 - Booster for Moderna series) due on 01/27/2022 DIABETIC FOOT EXAM endo checks. COLORECTAL CANCER SCREENING-refuses repeat scopes VITALS: BP 166/79 Pulse 81 Wt 103.4 kg (228 lb) SpO2 98% BMI 34.64 kg/m Last 4 Encounter Wt Readings: Date: Wt: 10/06/2022 103.4 kg (228 lb) 09/20/2022 98.6 kg (217 lb 6.4 oz) 08/22/2022 102.7 kg (226 lb 6.4 oz) 06/17/2022 99.8 kg (220 lb) PHYSICAL EXAMINATION: General appearance: Well appearing, alert, in no acute distress, well-hydrated, well nourished. Skin: Skin color, texture, turgor normal, no suspicious rashes or lesions Head: Normocephalic, no masses, lesions, tenderness or abnormalities Lungs: Lungs clear to auscultation. No wheezing, rhonchi, rales Heart: RRR without murmur, gallop, or rubs. No ectopy Abdomen: Normal abdominal exam, Abdomen soft, non-tender. Bowel sounds normal. No masses, organomegaly Extremities: No deformities, edema, skin discoloration, clubbing or cyanosis. Good capillary refill. Musculoskeletal: No joint swelling, deformity, or tenderness ASSESSMENT/PLAN: 1. Seizure disorder ([facility]) - ICD9: 345.90, ICD10: G40.909 (primary diagnosis) - check level with next lab draw - CARBAMAZEPI/TEGRETOL 2. Hypertension due to endocrine disorder - ICD9: 405.99, 259.9, ICD10: I15.2 - getting new med per nephro. Follow up in four to six weeks. - ATENOLOL 50 MG TABLET 3. Moderate episode of recurrent major depressive disorder ([facility]) - ICD9: 296.32, ICD10: F33. - ARIPIPRAZOLE 2 MG TABLET 4. Mixed hyperlipidemia - ICD9: 272.2, ICD10: E78.2 - ROSUVASTATIN 40 MG TABLET 5. Type 1 diabetes mellitus with diabetic polyneuropathy ([facility]) - ICD9: 250.61, 357.2, ICD10: E10.42 - stable. Encouraged compliance. Follow with endo - INSULIN LISPRO (U-100) 100 UNIT/ML SUBCUTANEOUS PEN 6. Type 1 diabetes mellitus with nephropathy ([facility]) - ICD9: 250.41, 583.81, ICD10: E10.21 - INSULIN LISPRO (U-100) 100 UNIT/ML SUBCUTANEOUS PEN 7. Type 1 diabetes mellitus with stage 3 chronic kidney disease, unspecified whether stage 3a or 3bCKD ([facility]) - ICD9: 250.41, 585.3, ICD10: E10.22, N18.30 - INSULIN LISPRO (U-100) 100 UNIT/ML SUBCUTANEOUS PEN 8. 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 Trigeminal neuralgia - ICD9: 350.1, ICD10: G50.0 - CARBAMAZEPI/TEGRETOL 10. Essential hypertension - ICD9: 401.9, ICD10: I10 - suboptimal control -as above 11. Stage 3a chronic kidney disease (HCC) - ICD9: 585.3, ICD10: N18.31 12. Renal cyst - ICD9: 753.10, ICD10: N28.1 - last ct was unchanged. Declines repeat imaging. 13. 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 Anemia, unspecified type - ICD9: 285.9, ICD10: D64.9 - declines scopes. Follow with heme onc 15. Need for vaccination - ICD9: V05.9, ICD10: Z23 - PFIZER-BIONTECH COVID-19 BIVALENT BOOSTER VACCINE, AGE 12+ YR Dutch Zhong [facility] NoteHNO ID: [id number] Author: Eden Diamond APRN.LEAD CASTER HELPER Service: ? Author Type: Nurse Practitioner Type: Progress Notes Filed: 09/20/2022 4:22 PM Note Text: Reason for Consultation: DM Type 1 Referring Physician: SELF HISTORY OF PRESENT ILLNESS Mr. Huffman is a 51 year old male presenting here today for a follow up of DM Type 1. As I recall, he was initially diagnosed with diabetes 2002. LV 06/17/22 A1C today is 10.2. up from History in addition to diabetes include: hypertension and hyperlipidemia, retinopathy, hypogonadism,nephropathy/CKD, peripheral neuropathy, obesity Hx of pancreaticoprivic diabetes;chronic pancreatitis. Hx of alcoholism--sober since 2003. Hx of trigeminal neuralgia and seizures. Under the care of neurology Dr. Nazia Jefferson. She has been following hyponatremia felt to be related to tegretol however the patient does not want to change medication. He is seeing nephrology in [place] ([facility] Under the care of hem/onc for colon cancer. States he is up overnight eating. Has been sick since June with lingering URI symptoms Current diabetes regimen is as follows: Lantus 48 units twice daily --missing doses Admelog 40 units breakfast, 45 units lunch, 45 units dinner--adds a few units as a guesstimate and missing some completely. If Blood Glucose (mg/dL) is < 150 Add 0 units 151-200 Add 2 units 201-250 Add 4 units 251-300 Add 6 units 301-350 Add 8 units 351-400 Add 10 units 401-450 Add 12 units > 451 Call provider Previous DM medications: U500 - had mood swings and was angry and loses temper. He will not try again. Metformin-- vomiting Exercise: ADL's ; yard work. he is checking his blood glucose 1-3 times daily. he does bring a log book today for review. LDE Blood Sugar Frequency: BG ranges 78 to 448 Glucose mostly in 200-300 range Has days without any readings Hypoglycemia frequency: occasionally; did not check at the time Hypoglycemia awareness: Yes Regarding symptoms of hypoglycemia, he is not experiencing any symptoms such as polyuria, polydipsia, nocturia or rapid weight loss or blurry vision, Overall, the patient has no acute complaints at this time. Hypogonadism: States Dr. Zepeda started him on Testosterone years ago--approx 2013 Most recent dose was testosterone 200mg/ML vial---taking 180mg (0.9 mL every 2 wks) He was giving his injection himself at home. Denies hx of prostate cancer. Tried axiron in the past but was ineffective. *uses 2 needles with injection--feels the needle is dull after having placed in through rubber on top of the vial so he changes it for the injection . He wished to go off testosterone 2020 and has not been taking since. He was feeling better off of it but today reports feeling a bit more sluggish. HLD: Managed per Dr. 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 from pancreatitis. Villous adenoma PAST SURGICAL HISTORY Procedure Laterality Date APPENDECTOMY age 6 COLONOSCOPY FLX DX W/COLLJ SPEC WHEN PFRMD 11/06/2012 Colonoscopy repeat 1 year COLONOSCOPY FLX DX W/COLLJ SPEC WHEN PFRMD 12/04/2013 Colonoscopy COLONOSCOPY FLX DX W/COLLJ SPEC WHEN PFRMD 08/26/15 Colonoscopy ESOPHAGOGASTRODUODENOSCOPY TRANSORAL DIAGNOSTIC 11/06/2012 EGD PAST SURGICAL HISTORY OF 07/2014 right hemicolectomy FAMILY HISTORY Problem Relation Age of Onset Diabetes Mother Hypertension Mother Diabetes Father Hypertension Father Stroke Paternal Uncle Heart Paternal Uncle Hypertension Sister Hypertension Brother Hypertension Maternal Grandmother Diabetes Maternal Grandmother Cancer Maternal Grandmother melanoma Hypertension Maternal Grandfather Diabetes Maternal Grandfather Hypertension Paternal Grandmother Cancer Paternal Grandmother melanoma Hypertension Paternal Grandfather Social History Tobacco Use Smoking status: Former Packs/day: 2.00 Years: 8.00 Pack years: 16.00 Types: Cigars, Cigarettes Quit date: 10/27/2003 Years since quittin.9 Smokeless tobacco: Never Vaping Use Vaping Use: Never used Substance Use Topics Alcohol use: No Comment: recovering alcoholic, quit 2003 Drug use: No Allergies As of Date: 09/20/2022 Allergen Noted Reaction AMLODIPINE 11/30/2021 Swelling CLARITIN [LORATADINE] 05/09/2005 Hives ERYTHROMYCIN 05/09/2005 HAYFEVER [HOMEOPATHIC PRODUCTS] 04/15/2005 LISINOPRIL 11/24/2021 O (more content not included)...[facility] 09-20-2022 Instructions* Patient Instructions* Eden Diamond APRN.CNP - 09/20/2022 3:14 PM EST Lantus AM 48 units PM 48 units 2. Admelog Breakfast 40 units Lunch 45 units Dinner 45 units If Blood Glucose (mg/dL) is < 150 Add 0 units 151-200 Add 2 units 201-250 Add 3 units 251-300 Add 4 units 301-350 Add 5 units 351-400 Add 6 units > 401 Add 7 units 3. Check glucose 4x per day. 4. Send me sugars every 2 wks or sooner if needed. 5. Follow up in 3 months. 6. Check blood pressure at home and follow up with Dr. Zhong. Eden Diamond, MSN, EDUCATION ASSISTANT, PEARL PELLER-C, CDE Endocrinology [facility] Medical Office [facility]/[address] [place] [address] Fax: [facility] History of Present illness Narrative* Eden Diamond, EDUCATION ASSISTANT.LEAD CASTER HELPER - 09/20/2022 2:59 PM EST Reason for Consultation: DM Type 1 Referring Physician: SELF HISTORY OF PRESENT ILLNESS Mr. Huffman is a 51 year old male presenting here today for a follow up of DM Type 1. As I recall, he was initially diagnosed with diabetes 2002. LV 06/17/22 A1C today is 10.2. up from History in addition to diabetes include: hypertension and hyperlipidemia, retinopathy, hypogonadism,nephropathy/CKD, peripheral neuropathy, obesity Hx of pancreaticoprivic diabetes;chronic pancreatitis. Hx of alcoholism--sober since 2003. Hx of trigeminal neuralgia and seizures. Under the care of neurology Dr. Nazia Jefferson. She has been following hyponatremia felt to be related to tegretol however the patient does not want to change medication. He is seeing nephrology in [place] ([facility] Under the care of hem/onc for colon cancer. States he is up overnight eating. Has been sick since June with lingering URI symptoms Current diabetes regimen is as follows: Lantus 48 units twice daily --missing doses Admelog 40 units breakfast, 45 units lunch, 45 units dinner--adds a few units as a guesstimate and missing some completely. If Blood Glucose (mg/dL) is < 150 Add 0 units 151-200 Add 2 units 201-250 Add 4 units 251-300 Add 6 units 301-350 Add 8 units 351-400 Add 10 units 401-450 Add 12 units > 451 Call provider Previous DM medications: U500 - had mood swings and was angry and loses temper. He will not try again. Metformin-- vomiting Exercise: ADL's ; yard work. he is checking his blood glucose 1-3 times daily. he does bring a log book today for review. LDE Blood Sugar Frequency: BG ranges 78 to 448 Glucose mostly in 200-300 range Has days without any readings Hypoglycemia frequency: occasionally; did not check at the time Hypoglycemia awareness: Yes Regarding symptoms of hypoglycemia, he is not experiencing any symptoms such as polyuria, polydipsia, nocturia or rapid weight loss or blurry vision, Overall, the patient has no acute complaints at this time. Hypogonadism: States Dr. Zepeda started him on Testosterone years ago--approx 2013 Most recent dose was testosterone 200mg/ML vial---taking 180mg (0.9 mL every 2 wks) He was giving his injection himself at home. Denies hx of prostate cancer. Tried axiron in the past but was ineffective. *uses 2 needles with injection--feels the needle is dull after having placed in through rubber on top of the vial so he changes it for the injection . He wished to go off testosterone 2020 and has not been taking since. He was feeling better off of it but today reports feeling a bit more sluggish. HLD: Managed per Dr. Zhong PAST MEDICAL HISTORY Diagnosis Date Acute GI bleeding 08/18/2015 Alcoholism (HCC) 2003 Anemia Saw hematology and gi, probable chromic disease Asthma Chronic pancreatitis (HCC) 2003 Colon cancer (HCC) Dandy-Walker syndrome variant (HCC) Esophageal reflux Hypertension Hypogonadism in male Major depressive disorder, recurrent episode, unspecified [facility] Microalbuminuria on maciej Mixed hyperlipidemia Seizure disorder (HCC) Negative EEG Trigeminal neuralgia Type 1 diabetes mellitus (HCC) 2002 Dr Zepeda. from pancreatitis. Villous adenoma PAST SURGICAL HISTORY Procedure Laterality Date APPENDECTOMY age 6 COLONOSCOPY FLX DX W/COLLJ SPEC WHEN PFRMD 11/06/2012 Colonoscopy repeat 1 year COLONOSCOPY FLX DX W/COLLJ SPEC WHEN PFRMD 12/04/2013 Colonoscopy COLONOSCOPY FLX DX W/COLLJ SPEC WHEN PFRMD 08/26/15 Colonoscopy ESOPHAGOGASTRODUODENOSCOPY TRANSORAL DIAGNOSTIC 11/06/2012 EGD PAST SURGICAL HISTORY OF 07/2014 right hemicolectomy FAMILY HISTORY Problem Relation Age of Onset Diabetes Mother Hypertension Mother Diabetes Father Hypertension Father Stroke Paternal Uncle Heart Paternal Uncle Hypertension Sister Hypertension Brother Hypertension Maternal Grandmother Diabetes Maternal Grandmother Cancer Maternal Grandmother melanoma Hypertension Maternal Grandfather Diabetes Maternal Grandfather Hypertension Paternal Grandmother Cancer Paternal Grandmother melanoma Hypertension Paternal Grandfather Social History Tobacco Use Smoking status: Former Packs/day: 2.00 Years: 8.00 Pack years: 16.00 Types: Cigars, Cigarettes Quit date: 10/27/2003 Years since quittin.9 Smokeless tobacco: Never Vaping Use Vaping Use: Never used Substance Use Topics Alcohol use: No Comment: recovering alcoholic, quit 2003 Drug use: No Allergies As of Date: 09/20/2022 Allergen Noted Reaction AMLODIPINE 11/30/2021 Swelling CLARITIN [LORATADINE] 05/09/2005 Hives ERYTHROMYCIN 05/09/2005 HAYFEVER [HOMEOPATHIC PRODUCTS] 04/15/2005 LISINOPRIL 11/24/2021 Other: See Comments Fully Assessed 09/20/2022 Current Outpatient Medications Medication Sig Dispense Refill lisinopril (ZESTRIL, PRINIVIL) 10 mg tablet Take 1 tablet by mouth once daily. 30 tablet 11 dimenhyDRINATE (DRAMAMINE) 50 mg tablet Take 50 mg by mouth at bedtime as needed. insulin glargine (LANTUS SOLOSTAR U-100 INSULIN) 100 unit/mL (3 mL) Inject 48 Units subcutaneously twice daily. 90 mL 3 insulin lispro (ADMELOG SOLOSTAR U-100 INSULIN) 100 unit/mL Inject subcutaneously 40 at breakfast, 45 units lunch, 45 units dinner plus SS up to 140 units daily 135 mL 3 Insulin [place], Disposable, (PEN NEEDLES) 31 gauge x 1/4 ndle Use 4 pen needles daily 400 Each 3 alcohol swabs Use 8 swabs daily TO CHECK BLOOD SUGAR AND FOR INSULIN INJECTIONS 800 Each 3 blood sugar diagnostic (FREESTYLE LITE STRIPS) test strip Use 4 strips per day, IDDM, E11.65 400 Strip 3 atenolol (TENORMIN) 50 mg tablet Take 1 tablet by mouth twice daily. 180 tablet 1 ARIPiprazole (ABILIFY) 2 mg tablet Take 2 tablets by mouth once daily. 180 tablet 0 carBAMazepine (TEGRETOL) 200 mg tablet Take 3 tablets by mouth twice daily. 180 tablet 11 doxazosin (CARDURA) 4 mg tablet Take 1 tablet by mouth once daily. 30 tablet 11 sertraline (ZOLOFT) 100 mg tablet Take 1 tablet by mouth once daily. 90 tablet 1 meclizine (ANTIVERT) 25 mg tab Take 25 mg by mouth as needed. promethazine (PHENERGAN) 12.5 mg tablet Take 1 tablet by mouth every 6 hours as needed. 12 tablet 0 gabapentin (NEURONTIN) 100 mg capsule take 1 capsule by mouth three times a day 90 capsule 1 omeprazole (PRILOSEC) 20 mg capsule Take 1 capsule by mouth daily before breakfast. 1/2 hr before meal. 90 capsule 1 gemfibrozil (LOPID) 600 mg tablet Take 1 tablet by mouth twice daily. 60 tablet 11 rosuvastatin (CRESTOR) 40 mg tablet Take 1 tablet by mouth once daily. 90 tablet 3 Blood-Glucose Meter (FREESTYLE LITE METER) monitoring kit 1 Each as needed. 1 Each 0 sildenafil (REVATIO) 20 mg tablet 2 to 5 tabs a day prn. 30 tablet 5 omega 4-sja-uin-fish oil 300-400-1,000 mg cap Take 1 capsule by mouth once daily. 30 capsule 11 Multivitamin capsule Take 1 capsule by mouth once daily. docosahexanoic acid/epa (FISH OIL ORAL) Take by mouth once daily. Lancets lancets TEST BLOOD SUGARS 4 TIMES DAILY. E10.9. Uses insulin. 400 Each 3 VITAMIN E, DL,TOCOPHERYL ACET, (VITAMIN E, DL, ACETATE,) 1,000 unit cap Take 1 capsule by mouth once daily. FERROUS SULFATE, DRIED (IRON, DRIED, ORAL) Take 1 tablet by mouth one time a week. Ascorbic Acid 1,000 mg tablet Take 1 tablet by mouth once daily. 0 Cholecalciferol, Vitamin D3, 25 mcg (1,000 unit) cap Take 1 capsule by mouth every other day cyanocobalamin (VITAMIN B-12) 500 mcg tablet Take 2 tablets by mouth once daily midazolam (NAYZILAM) 5 mg/spray (0.1 mL) nasal spray Use 1 spray in one nostril as needed for seizures. May repeat dose in alternate nostril after 10 minutes based on response and tolerability. [address] [place] 1 No current facility-administered medications for this visit. REVIEW OF SYSTEMS Review of Systems Respiratory: Negative for difficulty breathing. Cardiovascular: Negative for chest pain. Gastrointestinal: Negative for nausea, vomiting, diarrhea and constipation. PHYSICAL EXAMINATION BP 154/96 Pulse 90 Resp 16 Ht 172.8 cm (5' 8.03 ) Wt 98.6 kg (217 lb 6.4 oz) SpO2 100% BMI 33.03 kg/m2 Physical Exam Constitutional: Appearance: Normal appearance. He is obese. Cardiovascular: Rate and Rhythm: Normal rate and regular rhythm. Pulmonary: Effort: Pulmonary effort is normal. Breath sounds: Normal breath sounds. Skin: General: Skin is warm and dry. Neurological: Mental Status: He is alert and oriented to person, place, and time. Psychiatric: Mood and Affect: Mood normal. Behavior: Behavior normal. DATA Creatinine Date Value Ref Range Status 02/04/2022 1.67 (H) 0.73 - 1.22 mg/dL Final Hemoglobin A1C (%) Date Value 04/07/2021 9.4 Hemoglobin A1C (POCT) (%) Date Value 09/20/2022 10.2 ) No components found for: URINEALBUMIN Cholesterol, Total (mg/dL) Date Value 11/10/2021 209 10/07/2021 691 HDL Cholesterol (mg/dL) Date Value 11/10/2021 30 10/07/2021 9 LDL Cholesterol Date Value 11/10/2021 Comment: Unable to calculate due to increased Triglycerides. See LDL-Chol, Direct. 10/07/2021 Unable to calculate due to increased Triglycerides. See LDL-Chol, Direct. mg/dL Triglyceride (mg/dL) Date Value 11/10/2021 520 10/07/2021 4,600 IMPRESSION: Mr. Huffman is a 51 year old male here for evaluation of DM Type 1 complicated by hypertension, hyperlipidemia, peripheral neuropathy, retinopathy, nephropathy/CKD and hypogonadism, obesity RECOMMENDATIONS: (E10.21) Type 1 diabetes mellitus with nephropathy ([facility]) (primary encounter diagnosis) (E10.42) Type 1 diabetes mellitus with diabetic polyneuropathy ([facility]) (E10.22, N18.30) Type 1 diabetes mellitus with stage 3 chronic kidney disease, unspecified whether stage 3a or 3b CKD ([facility]) (E10.3211) 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 He continues to decline CGM. Recommend switching to concentrated basal insulin such as tresiba u200 to take once daily to help with compliance however hehas supply at home from a friend who and wishes to use it up first. He cannot tolerate U500. Reviewed importance of taking insulin and BG readings consistently Plan: HEMOGLOBIN A1C (POC), GLUCOSE, BLOOD (POC), COMP METABOLIC PANEL, HGB A1C, LIPID PANEL BASIC, ALBUMIN/CREAT RATIO RND UR, TSH BLD Lantus AM 48 units PM 48 units Admelog Breakfast 40 units Lunch 45 units Dinner 45 units If Blood Glucose (mg/dL) is < 150 Add 0 units 151-200 Add 2 units 201-250 Add 3 units 251-300 Add 4 units 301-350 Add 5 units 351-400 Add 6 units > 401 Add 7 units Check glucose 4x per day. Send me sugars every 2 wks or sooner if needed. Follow up in 3 months. (E29.1) Hypogonadism in male Comment/Plan: BIOAVAIL TESTO/SHBG, ADULT MALE, PSA/PROSTSPECAG SCRN off supplement as of December 2020. Now considering resuming. Will assess his level with next visit. (E78.2) Mixed hyperlipidemia Comment/Plan:LIPID PANEL BASIC Managed per Dr. Zhong. taking gemfibrozil (N18.31) Stage 3a chronic kidney disease (HCC) Comment/Plan: Managed per nephrology (I10) Essential hypertension Comment/Plan: Managed per Dr. Zhong. Check blood pressure at home and follow up with Dr. Zhong. (E66.9, Z68.33) Class 1 obesity with serious comorbidity and body mass index (BMI) of 33.0 to 33.9 in adult, unspecified obesity type Comment: Body mass index is 33.03 kg/m . Plan: Encouraged increase dietary and exercise efforts as able (Z12.5) Encounter for screening for malignant neoplasm of prostate Comment/Plan: PSA/PROSTSPECAG SCRN Patient considering resuming testosterone and will assess level Medical Decision Making: Level: 4 - Moderate Eden Diamond, MSN, EDUCATION ASSISTANT, PEARL PELLER-C, CDE Endocrinology [facility] Medical Office Building/[address], [facility] [address] [place] [address] Fax: documented in this encounter[facility]12[facility] NoteHNO ID: [id number] Author: Ruma Ortiz APRN.LEAD CASTER HELPER Service: ? Author Type: Nurse Practitioner Type: Progress Notes Filed: 08/22/2022 10:43 AM Note Text: CC: Patient presents with: Cough: Congestion x7 days HPI: Reginaldo Huffman is a 51 year old male who presents to the office with complaint of head congestion, cough, nonproductive, and sore throat for a week. Symptoms are staying the same. Associated symptoms includes nasal congestion and cough. Denies headache, body aches, fever, nausea, vomiting , and diarrhea. Treatments tried include Pseudoephedrine with temporary relief of symptoms. Sick contacts: unknown. History of asthma, frequent episodes of bronchitis, chronic bronchitis, bronchiectasis or COPD: No Smoker: No Seasonal/environmental allergies: No The ROS is otherwise negative. The patient's pmh, medications, allergies, and past visits are reviewed. PHYSICAL EXAM: BP 132/84 Pulse 76 Temp 36.1 ?C (97 ?F) Resp 20 Wt 102.7 kg (226 lb 6.4 oz) SpO2 96% BMI 34.42 kg/m? General appearance: alert, cooperative, pleasant, in no acute distress Head: Normocephalic Eyes: EOM's intact, conjunctiva pink and moist, no icterus, sclera white, non-injected Ears: Right ear: External ear/canal- Normal, TM - clear with good landmarks. Left ear: External ear/canal- Normal, TM - clear with good landmarks Oropharynx:moist without lesions, No erythema, exudates or tonsillar hypertrophy. Heart: Negative. RRR without obvious murmur, gallop, or rubs. No ectopy. 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 from pancreatitis. Villous adenoma PAST SURGICAL HISTORY Procedure Laterality Date APPENDECTOMY age 6 COLONOSCOPY FLX DX W/COLLJ SPEC WHEN PFRMD 11/06/2012 Colonoscopy repeat 1 year COLONOSCOPY FLX DX W/COLLJ SPEC WHEN PFRMD 12/04/2013 Colonoscopy COLONOSCOPY FLX DX W/COLLJ SPEC WHEN PFRMD 08/26/15 Colonoscopy ESOPHAGOGASTRODUODENOSCOPY TRANSORAL DIAGNOSTIC 11/06/2012 EGD PAST SURGICAL HISTORY OF 07/2014 right hemicolectomy ALLERGIES Amlodipine, Claritin [Loratadine], Erythromycin, Hayfever [Homeopathic Products], and Lisinopril MEDICATIONS lisinopril (ZESTRIL, PRINIVIL) 10 mg tablet Take 1 tablet by mouth once daily. dimenhyDRINATE (DRAMAMINE) 50 mg tablet Take 50 mg by mouth at bedtime as needed. insulin glargine (LANTUS SOLOSTAR U-100 INSULIN) 100 unit/mL (3 mL) Inject 48 Units subcutaneously twice daily. insulin lispro (ADMELOG SOLOSTAR U-100 INSULIN) 100 unit/mL Inject subcutaneously 40 at breakfast, 45 units lunch, 45 units dinner plus SS up to 140 units daily Insulin [place], Disposable, (PEN NEEDLES) 31 gauge x 1/4 ndle Use 4 pen needles daily alcohol swabs Use 8 swabs daily TO CHECK BLOOD SUGAR AND FOR INSULIN INJECTIONS blood sugar diagnostic (FREESTYLE LITE STRIPS) test strip Use 4 strips per day, IDDM, E11.65 atenolol (TENORMIN) 50 mg tablet Take 1 tablet by mouth twice daily. ARIPiprazole (ABILIFY) 2 mg tablet Take 2 tablets by mouth once daily. carBAMazepine (TEGRETOL) 200 mg tablet Take 3 tablets by mouth twice daily. doxazosin (CARDURA) 4 mg tablet Take 1 tablet by mouth once daily. sertraline (ZOLOFT) 100 mg tablet Take 1 tablet by mouth once daily. meclizine (ANTIVERT) 25 mg tab Take 25 mg by mouth as needed. promethazine (PHENERGAN) 12.5 mg tablet Take 1 tablet by mouth every 6 hours as needed. gabapentin (NEURONTIN) 100 mg capsule take 1 capsule by mouth three times a day omeprazole (PRILOSEC) 20 mg capsule Take 1 capsule by mouth daily before breakfast. 1/2 hr before meal. gemfibrozil (LOPID) 600 mg tablet Take 1 tablet by mouth twice daily. rosuvastatin (CRESTOR) 40 mg tablet Take 1 tablet by mouth once daily. midazolam (NAYZILAM) 5 mg/spray (0.1 mL) nasal spray Use 1 spray in one nostril as needed for seizures. May repeat dose in alternate nostril after 10 minutes based on response and tolerability. Blood-Glucose Meter (FREESTYLE LITE METER) monitoring kit 1 Each as needed. sildenafil (REVATIO) 20 mg tablet 2 to 5 tabs a day prn. omega 8-hlq-dly-fish oil 300-400-1,000 mg cap Take 1 capsule by mouth once daily. Multivitamin capsule Take 1 capsule by mouth once daily. docosahexanoic acid/epa (FISH OIL ORAL) Take by mouth once daily. Lancets lancets TEST BLOOD SUGARS 4 TIMES DAILY. E10.9. Uses insulin. VITAMIN E, DL,TOCOPHER (more content not included)...[facility] 08-22-2022 History of Present illness Narrative* Ruma Ortiz APRN.LEAD CASTER HELPER - 08/22/2022 10:28 AM EST CC: Patient presents with: Cough: Congestion x7 days HPI: Reginaldo Huffman is a 51 year old male who presents to the office with complaint of head congestion, cough, nonproductive, and sore throat for a week. Symptoms are staying the same. Associated symptoms includes nasal congestion and cough. Denies headache, body aches, fever, nausea, vomiting , and diarrhea. Treatments tried include Pseudoephedrine with temporary relief of symptoms. Sick contacts: unknown. History of asthma, frequent episodes of bronchitis, chronic bronchitis, bronchiectasis or COPD: No Smoker: No Seasonal/environmental allergies: No The ROS is otherwise negative. The patient's pmh, medications, allergies, and past visits are reviewed. PHYSICAL EXAM: BP 132/84 Pulse 76 Temp 36.1 C (97 F) Resp 20 Wt 102.7 kg (226 lb 6.4 oz) SpO2 96% BMI 34.42 kg/m General appearance: alert, cooperative, pleasant, in no acute distress Head: Normocephalic Eyes: EOM's intact, conjunctiva pink and moist, no icterus, sclera white, non-injected Ears: Right ear: External ear/canal- Normal, TM - clear with good landmarks. Left ear: External ear/canal- Normal, TM - clear with good landmarks Oropharynx:moist without lesions, No erythema, exudates or tonsillar hypertrophy. Heart: Negative. RRR without obvious murmur, gallop, or rubs. No ectopy. Lungs: clear to auscultation, without rales or wheeze, good air exchange PAST MEDICAL HISTORY Diagnosis Date Acute GI bleeding 08/18/2015 Alcoholism (HCC) 2004 Anemia Saw hematology and gi, probable chromic disease Asthma Chronic pancreatitis (HCC) 2004 Colon cancer (HCC) Dandy-Walker syndrome variant (HCC) Esophageal reflux Hypertension Hypogonadism in male Major depressive disorder, recurrent episode, unspecified [facility] Microalbuminuria on maciej Mixed hyperlipidemia Seizure disorder (HCC) Negative EEG Trigeminal neuralgia Type 1 diabetes mellitus (HCC) 2002 Dr Zepeda. from pancreatitis. Villous adenoma PAST SURGICAL HISTORY Procedure Laterality Date APPENDECTOMY age 6 COLONOSCOPY FLX DX W/COLLJ SPEC WHEN PFRMD 11/06/2012 Colonoscopy repeat 1 year COLONOSCOPY FLX DX W/COLLJ SPEC WHEN PFRMD 12/04/2013 Colonoscopy COLONOSCOPY FLX DX W/COLLJ SPEC WHEN PFRMD 08/26/15 Colonoscopy ESOPHAGOGASTRODUODENOSCOPY TRANSORAL DIAGNOSTIC 11/06/2012 EGD PAST SURGICAL HISTORY OF 07/2014 right hemicolectomy ALLERGIES Amlodipine, Claritin [Loratadine], Erythromycin, Hayfever [Homeopathic Products], and Lisinopril MEDICATIONS lisinopril (ZESTRIL, PRINIVIL) 10 mg tablet Take 1 tablet by mouth once daily. dimenhyDRINATE (DRAMAMINE) 50 mg tablet Take 50 mg by mouth at bedtime as needed. insulin glargine (LANTUS SOLOSTAR U-100 INSULIN) 100 unit/mL (3 mL) Inject 48 Units subcutaneously twice daily. insulin lispro (ADMELOG SOLOSTAR U-100 INSULIN) 100 unit/mL Inject subcutaneously 40 at breakfast, 45 units lunch, 45 units dinner plus SS up to 140 units daily Insulin [place], Disposable, (PEN NEEDLES) 31 gauge x 1/4 ndle Use 4 pen needles daily alcohol swabs Use 8 swabs daily TO CHECK BLOOD SUGAR AND FOR INSULIN INJECTIONS blood sugar diagnostic (FREESTYLE LITE STRIPS) test strip Use 4 strips per day, IDDM, E11.65 atenolol (TENORMIN) 50 mg tablet Take 1 tablet by mouth twice daily. ARIPiprazole (ABILIFY) 2 mg tablet Take 2 tablets by mouth once daily. carBAMazepine (TEGRETOL) 200 mg tablet Take 3 tablets by mouth twice daily. doxazosin (CARDURA) 4 mg tablet Take 1 tablet by mouth once daily. sertraline (ZOLOFT) 100 mg tablet Take 1 tablet by mouth once daily. meclizine (ANTIVERT) 25 mg tab Take 25 mg by mouth as needed. promethazine (PHENERGAN) 12.5 mg tablet Take 1 tablet by mouth every 6 hours as needed. gabapentin (NEURONTIN) 100 mg capsule take 1 capsule by mouth three times a day omeprazole (PRILOSEC) 20 mg capsule Take 1 capsule by mouth daily before breakfast. 1/2 hr before meal. gemfibrozil (LOPID) 600 mg tablet Take 1 tablet by mouth twice daily. rosuvastatin (CRESTOR) 40 mg tablet Take 1 tablet by mouth once daily. midazolam (NAYZILAM) 5 mg/spray (0.1 mL) nasal spray Use 1 spray in one nostril as needed for seizures. May repeat dose in alternate nostril after 10 minutes based on response and tolerability. Blood-Glucose Meter (FREESTYLE LITE METER) monitoring kit 1 Each as needed. sildenafil (REVATIO) 20 mg tablet 2 to 5 tabs a day prn. omega 2-fky-xwn-fish oil 300-400-1,000 mg cap Take 1 capsule by mouth once daily. Multivitamin capsule Take 1 capsule by mouth once daily. docosahexanoic acid/epa (FISH OIL ORAL) Take by mouth once daily. Lancets lancets TEST BLOOD SUGARS 4 TIMES DAILY. E10.9. Uses insulin. VITAMIN E, DL,TOCOPHERYL ACET, (VITAMIN E, DL, ACETATE,) 1,000 unit cap Take 1 capsule by mouth once daily. FERROUS SULFATE, DRIED (IRON, DRIED, ORAL) Take 1 tablet by mouth one time a week. Ascorbic Acid 1,000 mg tablet Take 1 tablet by mouth once daily. Cholecalciferol, Vitamin D3, 25 mcg (1,000 unit) cap Take 1 capsule by mouth every other day cyanocobalamin (VITAMIN B-12) 500 mcg tablet Take 2 tablets by mouth once daily FAMILY HISTORY Problem Relation Age of Onset Diabetes Mother Hypertension Mother Diabetes Father Hypertension Father Stroke Paternal Uncle Heart Paternal Uncle Hypertension Sister Hypertension Brother Hypertension Maternal Grandmother Diabetes Maternal Grandmother Cancer Maternal Grandmother melanoma Hypertension Maternal Grandfather Diabetes Maternal Grandfather Hypertension Paternal Grandmother Cancer Paternal Grandmother melanoma Hypertension Paternal Grandfather Social History Tobacco Use Smoking status: Former Packs/day: 2.00 Years: 8.00 Pack years: 16.00 Types: Cigars, Cigarettes Quit date: 10/27/2003 Years since quittin.8 Smokeless tobacco: Never Vaping Use Vaping Use: Never used Substance Use Topics Alcohol use: No Comment: recovering alcoholic, quit 2003 Drug use: No ASSESSMENT/PLAN: 1. URI, acute - ICD9: 465.9, ICD10: J06.9 Tessalon pearls and prednisone daily for 5 days. Delayed ATB script sent. Prescription instructions reviewed with patient as applicable. Potential red flag symptoms discussed with the patient. Reviewed appropriate action plan to take if red flag symptoms occur. Patient agreeable to treatment plan. Ruma Ortiz APRN.SARAH documented [facility]11-11-2022 Miscellaneous Notes* Telephone Encounter - Shadia Renae Pss - 07/08/2022 11:57 AM EST Patient has been identified by name and date of : Yes Last office visit in this department: 03/30/2022 RX INSTRUCTIONS: Patient aware RX will be sent to pharmacy. No need to notify patient. Patient phones requesting refills as follows: Requested Prescriptions Pending Prescriptions Disp Refills lisinopril (ZESTRIL, PRINIVIL) 10 mg tablet Sig: Take 1 tablet by mouth once daily. Please review and advise. Shadia Renae Pss [facility] History of Present illness Narrative* Eden Diamond APRN.LEAD CASTER HELPER - 06/17/2022 2:45 PM EDT Reason for Consultation: DM Type 1 Referring Physician: SELF HISTORY OF PRESENT ILLNESS Mr. Huffman is a 51 year old male presenting here today for a follow up of DM Type 1. As I recall, he was initially diagnosed with diabetes 2002. 10/29/21 A1C today is 9.2 Hx of pancreaticoprivic diabetes;chronic pancreatitis. Hx of alcoholism--sober since 2003. Hx of trigeminal neuralgia and seizures. Under the care of neurology Dr. Nazia Jefferson. She has been following hyponatremia felt to be related to tegretol however the patient does not want to change medication. Urine protein was up to 2357. He was again referred to nephrology in 2021. He has been hesitant to see them stating he has to travel far from [place] to do so. History in addition to diabetes include: hypertension and hyperlipidemia, retinopathy, hypogonadism,nephropathy/CKD, peripheral neuropathy, obesity Has been baking more and consuming the pies, etc he makes. Not checking BG levels consistently Current diabetes regimen is as follows: Lantus 48 units twice daily Admelog 40 units breakfast, 45 units lunch, 45 units dinner If Blood Glucose (mg/dL) is < 150 Add 0 units 151-200 Add 2 units 201-250 Add 4 units 251-300 Add 6 units 301-350 Add 8 units 351-400 Add 10 units 401-450 Add 12 units > 451 Call provider Previous DM medications: U500 - had mood swings and was angry and loses temper. He will not try again. Metformin-- vomiting Exercise: ADL's ; yard work. he is checking his blood glucose 0 times daily. he does not bring a log book today for review. LDE Blood Sugar Frequency: Hypoglycemia frequency: denies Hypoglycemia awareness: Yes Regarding symptoms of hypoglycemia, he is not experiencing any symptoms such as polyuria, polydipsia, nocturia or rapid weight loss or blurry vision, Overall, the patient has no acute complaints at this time. Hypogonadism: States Dr. Zepeda started him on Testosterone years ago--approx 2013 Most recent dose was testosterone 200mg/ML vial---taking 180mg (0.9 mL every 2 wks) He was giving his injection himself at home. Denies hx of prostate cancer. Tried axiron in the past but was ineffective. *uses 2 needles with injection--feels the needle is dull after having placed in through rubber on top of the vial so he changes it for the injection . Total testosterone 1150 in November. He wished to go off testosterone 2020 and has not been taking since. Reports he feels better not taking it. HLD: Managed per Dr. 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 from pancreatitis. Villous adenoma PAST SURGICAL HISTORY Procedure Laterality Date APPENDECTOMY age 6 COLONOSCOPY FLX DX W/COLLJ SPEC WHEN PFRMD 11/06/2012 Colonoscopy repeat 1 year COLONOSCOPY FLX DX W/COLLJ SPEC WHEN PFRMD 12/04/2013 Colonoscopy COLONOSCOPY FLX DX W/COLLJ SPEC WHEN PFRMD 08/26/15 Colonoscopy ESOPHAGOGASTRODUODENOSCOPY TRANSORAL DIAGNOSTIC 11/06/2012 EGD PAST SURGICAL HISTORY OF 07/2014 right hemicolectomy FAMILY HISTORY Problem Relation Age of Onset Diabetes Mother Hypertension Mother Diabetes Father Hypertension Father Stroke Paternal Uncle Heart Paternal Uncle Hypertension Sister Hypertension Brother Hypertension Maternal Grandmother Diabetes Maternal Grandmother Cancer Maternal Grandmother melanoma Hypertension Maternal Grandfather Diabetes Maternal Grandfather Hypertension Paternal Grandmother Cancer Paternal Grandmother melanoma Hypertension Paternal Grandfather Social History Tobacco Use Smoking status: Former Packs/day: 2.00 Years: 8.00 Pack years: 16.00 Types: Cigars, Cigarettes Quit date: 10/27/2003 Years since quittin.6 Smokeless tobacco: Never Vaping Use Vaping Use: Never used Substance Use Topics Alcohol use: No Comment: recovering alcoholic, quit 2003 Drug use: No Allergies As of Date: 06/17/2022 Allergen Noted Reaction AMLODIPINE 11/30/2021 Swelling CLARITIN [LORATADINE] 05/09/2005 Hives ERYTHROMYCIN 05/09/2005 HAYFEVER [HOMEOPATHIC PRODUCTS] 04/15/2005 LISINOPRIL 11/24/2021 Other: See Comments Fully Assessed 06/17/2022 Current Outpatient Medications Medication Sig Dispense Refill dimenhyDRINATE (DRAMAMINE) 50 mg tablet Take 50 mg by mouth at bedtime as needed. atenolol (TENORMIN) 50 mg tablet Take 1 tablet by mouth twice daily. 180 tablet 1 ARIPiprazole (ABILIFY) 2 mg tablet Take 2 tablets by mouth once daily. 180 tablet 0 carBAMazepine (TEGRETOL) 200 mg tablet Take 3 tablets by mouth twice daily. 180 tablet 11 doxazosin (CARDURA) 4 mg tablet Take 1 tablet by mouth once daily. 30 tablet 11 sertraline (ZOLOFT) 100 mg tablet Take 1 tablet by mouth once daily. 90 tablet 1 meclizine (ANTIVERT) 25 mg tab Take 25 mg by mouth as needed. promethazine (PHENERGAN) 12.5 mg tablet Take 1 tablet by mouth every 6 hours as needed. 12 tablet 0 gabapentin (NEURONTIN) 100 mg capsule take 1 capsule by mouth three times a day 90 capsule 1 lisinopril (ZESTRIL, PRINIVIL) 10 mg tablet Take 10 mg by mouth once daily. omeprazole (PRILOSEC) 20 mg capsule Take 1 capsule by mouth daily before breakfast. 1/2 hr before meal. 90 capsule 1 gemfibrozil (LOPID) 600 mg tablet Take 1 tablet by mouth twice daily. 60 tablet 11 rosuvastatin (CRESTOR) 40 mg tablet Take 1 tablet by mouth once daily. 90 tablet 3 midazolam (NAYZILAM) 5 mg/spray (0.1 mL) nasal spray Use 1 spray in one nostril as needed for seizures. May repeat dose in alternate nostril after 10 minutes based on response and tolerability. 2 [place] 1 Blood-Glucose Meter (FREESTYLE LITE METER) monitoring kit 1 Each as needed. 1 Each 0 sildenafil (REVATIO) 20 mg tablet 2 to 5 tabs a day prn. 30 tablet 5 omega 9-ctx-noj-fish oil 300-400-1,000 mg cap Take 1 capsule by mouth once daily. 30 capsule 11 Multivitamin capsule Take 1 capsule by mouth once daily. docosahexanoic acid/epa (FISH OIL ORAL) Take by mouth once daily. Lancets lancets TEST BLOOD SUGARS 4 TIMES DAILY. E10.9. Uses insulin. 400 Each 3 VITAMIN E, DL,TOCOPHERYL ACET, (VITAMIN E, DL, ACETATE,) 1,000 unit cap Take 1 capsule by mouth once daily. FERROUS SULFATE, DRIED (IRON, DRIED, ORAL) Take 1 tablet by mouth one time a week. Ascorbic Acid 1,000 mg tablet Take 1 tablet by mouth once daily. 0 Cholecalciferol, Vitamin D3, 25 mcg (1,000 unit) cap Take 1 capsule by mouth every other day cyanocobalamin (VITAMIN B-12) 500 mcg tablet Take 2 tablets by mouth once daily insulin glargine (LANTUS SOLOSTAR U-100 INSULIN) 100 unit/mL (3 mL) Inject 48 Units subcutaneously twice daily. 90 mL 3 insulin lispro (ADMELOG SOLOSTAR U-100 INSULIN) 100 unit/mL Inject subcutaneously 40 at breakfast, 45 units lunch, 45 units dinner plus SS up to 140 units daily 135 mL 3 Insulin [place], Disposable, (PEN NEEDLES) 31 gauge x 1/4 ndle Use 4 pen needles daily 400 Each 3 alcohol swabs Use 8 swabs daily TO CHECK BLOOD SUGAR AND FOR INSULIN INJECTIONS 800 Each 3 blood sugar diagnostic (FREESTYLE LITE STRIPS) test strip Use 4 strips per day, IDDM, E11.65 400 Strip 3 No current facility-administered medications for this visit. REVIEW OF SYSTEMS Review of Systems Respiratory: Negative for difficulty breathing. Cardiovascular: Negative for chest pain. Gastrointestinal: Negative for nausea, vomiting, diarrhea and constipation. PHYSICAL EXAMINATION BP 140/76 Pulse 78 Ht 172.7 cm (5' 8 ) Wt 99.8 kg (220 lb) SpO2 100% BMI 33.45 kg/m2 Physical Exam Constitutional: Appearance: Normal appearance. He is obese. Cardiovascular: Rate and Rhythm: Normal rate and regular rhythm. Pulmonary: Effort: Pulmonary effort is normal. Breath sounds: Normal breath sounds. Skin: General: Skin is warm and dry. Neurological: Mental Status: He is alert and oriented to person, place, and time. Psychiatric: Mood and Affect: Mood normal. Behavior: Behavior normal. DATA Creatinine Date Value Ref Range Status 02/04/2022 1.67 (H) 0.73 - 1.22 mg/dL Final Hemoglobin A1C (%) Date Value 04/07/2021 9.4 Hemoglobin A1C (POCT) (%) Date Value 06/17/2022 9.2 ) No components found for: URINEALBUMIN Cholesterol, Total (mg/dL) Date Value 11/10/2021 209 10/07/2021 691 HDL Cholesterol (mg/dL) Date Value 11/10/2021 30 10/07/2021 9 LDL Cholesterol Date Value 11/10/2021 Comment: Unable to calculate due to increased Triglycerides. See LDL-Chol, Direct. 10/07/2021 Unable to calculate due to increased Triglycerides. See LDL-Chol, Direct. mg/dL Triglyceride (mg/dL) Date Value 11/10/2021 520 10/07/2021 4,600 IMPRESSION: Mr. 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 No enough data to make changes today. Plan: HEMOGLOBIN A1C (POC), insulin glargine (LANTUS SOLOSTAR U-100 INSULIN) 100 unit/mL (3 mL), insulin lispro (ADMELOG SOLOSTAR U-100 INSULIN) 100 unit/mL, Insulin [place], Disposable, (PEN NEEDLES) 31 gauge x 1/4 ndle, alcohol swabs, blood sugar diagnostic (FREESTYLE LITE STRIPS) test strip Continue current insulin doses. Check BG 4x per day. Mail me readings in 1-2 wk. Follow up with me in 3 months or PEARL PELLER Farhat (in eddi) (E29.1) Hypogonadism in male Comment/Plan: off supplement as of December 2020 and feeling well. (E78.2) Mixed hyperlipidemia Comment/Plan: Managed per Dr. Zhong. Now on gemfibrozil (N18.31) Stage 3a chronic kidney disease (HCC) Comment/Plan: he has been referred to nephrology but opted not to go. (I10) Essential hypertension Comment/Plan: Managed per Dr. Zhong. (E66.9, Z68.33) Class 1 obesity with serious comorbidity and body mass index (BMI) of 33.0 to 33.9 in adult, unspecified obesity type Comment: Body mass index is 33.45 kg/m . Plan: Encouraged increase dietary and exercise efforts as able *Declines influenza vaccine. I spent a total of 30 minutes on the date of the service which included preparing to see the patient, [id number] patient care, completing clinical documentation, obtaining and/or reviewing separately obtained history, performing a medically appropriate examination, counseling and educating the pat ient/family/caregiver, ordering medications, tests, or procedures, and communicating results to thepatient/family/caregiver. Eden Diamond, MSN, EDUCATION ASSISTANT, PEARL PELLER-C, CDE Endocrinology [facility]/[address] [place] [address] Fax: documented in this encounterKn[facility]10-07-2022 Miscellaneous Notes* Telephone Encounter - So Ferrer Pss - 06/03/2022 1:48 PM EDT Pharmacy verified in [facility] Patient has been identified by name and date of : Yes Patient aware RX will be sent to pharmacy. No need to notify patient. Patient phones for refill(s): Requested Prescriptions Pending Prescriptions Disp Refills atenolol (TENORMIN) 50 mg tablet 180 tablet 1 Sig: Take 1 tablet by mouth twice daily. ARIPiprazole (ABILIFY) 2 mg tablet 180 tablet 0 Sig: Take 2 tablets by mouth once daily. carBAMazepine (TEGRETOL) 200 mg tablet 180 tablet 11 Sig: Take 3 tablets by mouth twice daily. Date of last office visit : 03/30/2022 Date of next office visit : 09/30/2022 Last 2 Encounter Wt Readings: Date: Wt: 03/30/2022 97 kg (213 lb 12.8 oz) 02/15/2022 97.1 kg (214 lb) Please advise. So Ferrer Pss documented in this encounterKn[facility]10-[facility]-2022 Miscellaneous Notes* Telephone Encounter - Ilene Stewart LPN - 06/02/2022 5:19 PM EDT Patient notified. Verbalized understanding. * Telephone Encounter - Dutch Zhong MD - 06/02/2022 5:02 PM EDT Ok. Stay on same meds and see them then. * Telephone Encounter - Abimbola Marion RN - 06/02/2022 4:25 PM EDT Patient returned call and given provider's message below. Patient reports he sees nephrology on 06-09-22. * Telephone Encounter - Ilene Stewart LPN - 06/02/2022 4:04 PM EDT Left message to return call * Telephone Encounter - Dutch Zhong MD - 06/02/2022 2:58 PM EDT Bp slightly up, although one was within range. When does he see nephrology again? * Telephone Encounter - Alia Villegas LPN - 06/02/2022 10:20 AM EDT Manual Readin/82 Pulse: 69 BP Shant average: 151/81 P: 65 Repeat BP Check: 164/78 P65 #1 154/75 P64 #2 138/79 P65 #3 152/83 P65 #4 144/79 P65 #5 153/80 P66 #6 Reason for blood pressure check - Last BP elevated and Medication adjustment Patient is: Taking medication as prescribed Yes Took medication today Yes If no, date medication last taken N/A Experiencing side effects Yes BP continued to be elevated at nurse visit 05/04/22. Doxazosin was increased to 4mg daily. Reports that he has been having increased headaches for approx 1 week. Also has some sinus congestion currently. Had some shortness of breath yesterday. Denies any chest pain or dizziness. Daily caffeine use; none today. Past personal history of tobacco use; no current exposure. Alert and oriented. Pt has been identified by name and birthdate: Yes Allergies reviewed: Yes Latex allergy: no. Medication - prescribed and OTC reviewed and updated: Yes Do you need any prescription refills prior to your next visit: No Health Maintenance: Reviewed and not up to date and provider notified Patient advised that he would be contacted after review by PCP. Alia Villegas LPN documented in this encounterKnox [facility]10-06-2022 History of Present illness Narrative* Alia Villegas LPN - 06/02/2022 10:16 AM EDT Manual Readin/82 Pulse: 69 BP Shant average: 151/81 P: 65 Repeat BP Check: 164/78 P65 #1 154/75 P64 #2 138/79 P65 #3 152/83 P65 #4 144/79 P65 #5 153/80 P66 #6 Reason for blood pressure check - Last BP elevated and Medication adjustment Patient is: Taking medication as prescribed Yes Took medication today Yes If no, date medication last taken N/A Experiencing side effects Yes BP continued to be elevated at nurse visit 05/04/22. Doxazosin was increased to 4mg daily. Reports that he has been having increased headaches for approx 1 week. Also has some sinus congestion currently. Had some shortness of breath yesterday. Denies any chest pain or dizziness. Daily caffeine use; none today. Past personal history of tobacco use; no current exposure. Alert and oriented. Pt has been identified by name and birthdate: Yes Allergies reviewed: Yes Latex allergy: no. Medication - prescribed and OTC reviewed and updated: Yes Do you need any prescription refills prior to your next visit: No Health Maintenance: Reviewed and not up to date and provider notified Patient advised that he would be contacted after review by PCP. Alia Villegas LPN documented in this encounterKnox [facility] Hospital09-07-2022 Miscellaneous Notes* Telephone Encounter - Germaine Hfufman Ma - 05/04/2022 10:06 AM EDT Called and spoke with Mother, Elizabeth and gave her all information below. Verbalized understanding. Scheduled 1 mo BP check with Nurse on 06/02/22. Germaine Huffman Ma * Telephone Encounter - Dutch Zhong MD - 05/04/2022 9:42 AM EDT Increase doxazosin to 4 mg a day. Recheck bp in one month * Telephone Encounter - Alia Villegas LPN - 05/04/2022 9:22 AM EDT Manual Readin/96 Pulse: 73 BP Shant average: 151/88 P: 73 Repeat BP Check: 151/86 P74 #1 152/88 P74 #2 152/90 P72 #3 142/94 P73 #4 163/85 P73 #5 147/84 P73 #6 Reason for blood pressure check - Last BP elevated Patient is: Taking medication as prescribed Yes Took medication today No (takes later in morning) If no, date medication last taken 05/03/22 Experiencing side effects No BP was elevated at last appt 03/30/22. No BP medication changes were made at that time. Taking all medications as prescribed. Denies any chest pain, shortness of breath, or dizziness. Does have headaches approx 2/wk; will use Tylenol as needed. Daily caffeine use. Past personal history of tobacco use; no current exposure. Alert and oriented. Pt has been identified by name and birthdate: Yes Allergies reviewed: Yes Latex allergy: no. Medication - prescribed and OTC reviewed and updated: Yes Do you need any prescription refills prior to your next visit: No Health Maintenance: Reviewed and not up to date and provider notified Patient advised that he would be contacted after review by PCP. Alia Villegas LPN documented in this encounterKnox [facility] Hospital09-07-2022 History of Present illness Narrative* Alia Villegas LPN - 05/04/2022 9:19 AM EDT Manual Readin/96 Pulse: 73 BP Shant average: 151/88 P: 73 Repeat BP Check: 151/86 P74 #1 152/88 P74 #2 152/90 P72 #3 142/94 P73 #4 163/85 P73 #5 147/84 P73 #6 Reason for blood pressure check - Last BP elevated Patient is: Taking medication as prescribed Yes Took medication today No (takes later in morning) If no, date medication last taken 05/03/22 Experiencing side effects No BP was elevated at last appt 03/30/22. No BP medication changes were made at that time. Taking all medications as prescribed. Denies any chest pain, shortness of breath, or dizziness. Does have headaches approx 2/wk; will use Tylenol as needed. Daily caffeine use. Past personal history of tobacco use; no current exposure. Alert and oriented. Pt has been identified by name and birthdate: Yes Allergies reviewed: Yes Latex allergy: no. Medication - prescribed and OTC reviewed and updated: Yes Do you need any prescription refills prior to your next visit: No Health Maintenance: Reviewed and not up to date and provider notified Patient advised that he would be contacted after review by PCP. Alia Villegas LPN documented in this encounterKnox [facility] Hospital08-12-2022 Miscellaneous Notes* Telephone Encounter - Tabatha Bernal Pss - 04/08/2022 1:21 PM EDT Patient has been identified by name and date of : Yes Requested Prescriptions Pending Prescriptions Disp Refills sertraline (ZOLOFT) 100 mg tablet 90 tablet 1 Sig: Take 1 tablet by mouth once daily. RX INSTRUCTIONS: Patient aware RX will be sent to pharmacy. No need to notify patient. Tabatha Bernal Pss documented in this encounterKnox [facility] Hospital08-03-2022 History of Present illness Narrative* Dutch Zhong MD - 03/30/2022 10:51 AM EDT Patient presents with: Follow Up HPI: Patient presents today for office visit for follow up. Was seeing podiatry and was referred to ID. Did not keep appt or follow up with podiatry. He did see nephrology and was to neurology since here last ENT: seeing Dr. Bradley. They are trying to get an MRI done. Insurance is giving them a hard time in getting it. Considering vestibular therapy. Has follow up scheduled. Not as bad. PODIATRY: seeing Dr. Carlos for his foot and it is doing ok. Sees Dr. Ibarra this week. Gets labs on Monday. He passed out at the Endo office. His a1c was down to 8.3 which is the best I have seen. Not checking sugars. No current passing out spells. No chest pain or shortness of breath. No issues with the bowels. He again says gi work up is not happening. See my previous note: Was having worsening renal function and hyperkalemia. Maciej was held until could get into nephrology. We adjusted bp meds as well. We had also discussed his poorly controlled sugars and lipids. His bp is much better. They are going to follow labs closely. Edema is overall better. Still occasionally puffy. Sugars are still elevated. Sees endo next month. Sees Dr. Ibarra in April. Stools were negative for blood He again refuses colonoscopy. He is fully aware that not repeating it given his worsening anemia can cause complications up to and including . He denies any black or bloody stools. No diarrhea or constipation. No nausea or vomiting. No heartburn. No abd pain. See Lindsay's last note: He went to [place] [facility] on 02/04. Refers he was at the suspension cord tier. [place] like was going to pass out. Did not lose consciousness. Refers whenever he would sit up, or turn head to the side, would fel like he was going to pass out. I felt like I was moving and so was the world. + nausea. Found to have horizontal nystagmus and provokable dizziness. Labs were stable. CT of the head without acute changes. Was given meclizine and nausea medicine. Refers that he came home and slept for 4 hours and felt improved, but not entirely resolved. Then on 02/13, he was out eating dinner at a local restaurant. Started getting clammy. When he got to the car, had dizziness. Proceeded to [place] [facility]. He had reproducible vertiginous symptoms and nystagmus with [place]-Hallpike. Refers that he had meclizine and phenergan. Went home and slept about 4 hours. Symptoms improved, but not completely resolved. Refers continues with a little dizziness. No nausea. Refers that he notices looking out the car window on the right, symptoms are worse. Staying well hydrated and eating okay. MEDICATIONS: Current Outpatient Medications Medication Sig promethazine (PHENERGAN) 12.5 mg tablet Take 1 tablet by mouth every 6 hours as needed. ARIPiprazole (ABILIFY) 2 mg tablet Take 2 tablets by mouth once daily. gabapentin (NEURONTIN) 100 mg capsule take 1 capsule by mouth three times a day lisinopril (PRINIVIL) 10 mg tablet Take 10 mg by mouth once daily. doxazosin (CARDURA) 2 mg tablet Take 1 tablet by mouth once daily. insulin glargine (LANTUS SOLOSTAR U-100 INSULIN) 100 unit/mL (3 mL) Inject 48 Units subcutaneously twice daily. Inject subcutaneously 40 units AM and 45 units PM insulin lispro (ADMELOG SOLOSTAR U-100 INSULIN) 100 unit/mL Inject subcutaneously 40 at breakfast, 45 units lunch, 45 units dinner plus SS up to 140 units daily omeprazole (PRILOSEC) 20 mg capsule Take 1 capsule by mouth daily before breakfast. 1/2 hr before meal. gemfibrozil (LOPID) 600 mg tablet Take 1 tablet by mouth twice daily. rosuvastatin (CRESTOR) 40 mg tablet Take 1 tablet by mouth once daily. atenolol (TENORMIN) 50 mg tablet Take 1 tablet by mouth twice daily. sertraline (ZOLOFT) 100 mg tablet Take 1 tablet by mouth once daily. carBAMazepine (TEGRETOL) 200 mg tablet Take 3 tablets by mouth twice daily. midazolam (NAYZILAM) 5 mg/spray (0.1 mL) nasal spray Use 1 spray in one nostril as needed for seizures. May repeat dose in alternate nostril after 10 minutes based on response and tolerability. Blood-Glucose Meter (FREESTYLE LITE METER) monitoring kit 1 Each as needed. sildenafil (REVATIO) 20 mg tablet 2 to 5 tabs a day prn. omega 1-aja-ikd-fish oil 300-400-1,000 mg cap Take 1 capsule by mouth once daily. Multivitamin capsule Take 1 capsule by mouth once daily. alcohol swabs padm Use 8 swabs daily TO CHECK BLOOD SUGAR AND FOR INSULIN INJECTIONS blood sugar diagnostic (FREESTYLE LITE STRIPS) test strip TEST four times a day, IDDM, E11.65 Insulin [place], Disposable, (PEN NEEDLES) 31 gauge x 1/4 ndle One needle per dose; 4 per day docosahexanoic acid/epa (FISH OIL ORAL) Take by mouth once daily. Lancets lancets TEST BLOOD SUGARS 4 TIMES DAILY. E10.9. Uses insulin. VITAMIN E, DL,TOCOPHERYL ACET, (VITAMIN E, DL, ACETATE,) 1,000 unit cap Take 1 capsule by mouth once daily. FERROUS SULFATE, DRIED (IRON, DRIED, ORAL) Take 1 tablet by mouth one time a week. Ascorbic Acid (VITAMIN C) 1,000 mg tablet Take 1 tablet by mouth once daily. Cholecalciferol, Vitamin D3, (VITAMIN D) 1,000 unit cap Take 1 capsule by mouth every other day cyanocobalamin (VITAMIN B-12) 500 mcg tab Take 2 tablets by mouth once daily cephALEXin (KEFLEX) 500 mg capsule Take 1 capsule by mouth three times daily. (Patient not taking: Reported on 03/30/2022 ) cephALEXin (KEFLEX) 500 mg capsule Take 1 capsule by mouth three times daily. (Patient not taking: Reported on 03/30/2022 ) No current facility-administered medications for this visit. 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 from pancreatitis. Villous adenoma PAST SURGICAL HISTORY Procedure Laterality Date APPENDECTOMY age 6 COLONOSCOPY FLX DX W/COLLJ SPEC WHEN PFRMD 11/06/2012 Colonoscopy repeat 1 year COLONOSCOPY FLX DX W/COLLJ SPEC WHEN PFRMD 12/04/2013 Colonoscopy COLONOSCOPY FLX DX W/COLLJ SPEC WHEN PFRMD 08/26/15 Colonoscopy ESOPHAGOGASTRODUODENOSCOPY TRANSORAL DIAGNOSTIC 11/06/2012 EGD PAST SURGICAL HISTORY OF 07/2014 right hemicolectomy FAMILY HISTORY Problem Relation Age of Onset Diabetes Mother Hypertension Mother Diabetes Father Hypertension Father Stroke Paternal Uncle Heart Paternal Uncle Hypertension Sister Hypertension Brother Hypertension Maternal Grandmother Diabetes Maternal Grandmother Cancer Maternal Grandmother melanoma Hypertension Maternal Grandfather Diabetes Maternal Grandfather Hypertension Paternal Grandmother Cancer Paternal Grandmother melanoma Hypertension Paternal Grandfather Social History Tobacco Use Smoking status: Former Smoker Packs/day: 2.00 Years: 8.00 Pack years: 16.00 Types: Cigars Quit date: 10/27/2003 Years since quittin.4 Smokeless tobacco: Never Used Vaping Use Vaping Use: Never used Substance Use Topics Alcohol use: No Comment: recovering alcoholic, quit 2003 Drug use: No Reviewed current medications, allergies, past medical history, surgical history, family history andsocial history today. REVIEW OF SYSTEMS All other reviewed and negative other than HPI. HEALTH MAINTENANCE: Reviewed health maintenance issues today and recommended the following in detail. BP CONTROLLED (<130/80) Never done HEPATITIS B(1 of 3 - Risk 3-dose series) Never done PNEUMOCOCCAL(2 - PCV) - has had three SHINGRIX VACCINE(1 of 2) Never done VITALS: BP 154/82 Pulse 73 Ht 172.7 cm (5' 8 ) Wt 97 kg (213 lb 12.8 oz) SpO2 98% BMI 32.51 kg/m Last 4 Encounter Wt Readings: Date: Wt: 02/15/2022 97.1 kg (214 lb) 02/04/2022 102.8 kg (226 lb 9.6 oz) 02/04/2022 98 kg (216 lb) 12/22/2021 99.3 kg (219 lb) PHYSICAL EXAMINATION: General appearance: Well appearing, alert, in no acute distress, well-hydrated, well nourished. Skin: Skin color, texture, turgor normal, no suspicious rashes or lesions Head: Normocephalic, no masses, lesions, tenderness or abnormalities Lungs: Lungs clear to auscultation. No wheezing, rhonchi, rales Heart: RRR without murmur, gallop, or rubs. No ectopy Abdomen: Normal abdominal exam, Abdomen soft, non-tender. Bowel sounds normal. No masses, organomegaly Extremities: No deformities, edema, skin discoloration, clubbing or cyanosis. Good capillary refill. Musculoskeletal: No joint swelling, deformity, or tenderness Peripheral pulses: Normal Neuro: Negative. ASSESSMENT/PLAN: 1. Essential hypertension - ICD9: 401.9, ICD10: I10 (primary diagnosis) - suboptimal control - Continue current medication(s) - Goal of BP <130/80 2. Moderate episode of recurrent major depressive disorder (HCC) - ICD9: 296.32, ICD10: F33.1 - follow progress. 3. Type 2 diabetes mellitus with stage 3a chronic kidney disease, with long-term current use of insulin (HCC) - ICD9: 250.40, 585.3, V58.67, ICD10: E11.22, N18.31, Z79.4 improved control - Continue current medications - continue with nephro and endo. 4. Cecum cancer (HCC) - ICD9: 153.4, ICD10: C18.0 - see Dr Ibarra 5. Seizure disorder (HCC) - ICD9: 345.90, ICD10: G40.909 - per neuro 6. Benign paroxysmal positional vertigo, unspecified laterality - ICD9: 386.11, ICD10: H81.10 - per ENT 7. Closed nondisplaced fracture of phalanx of toe with routine healing, unspecified laterality, unspecified toe, subsequent encounter - ICD9: V54.19, ICD10: S92.919D - per podiatry 8. Anemia, unspecified type - ICD9: 285.9, ICD10: D64.9 - per heme/onc. Refuses gi eval. Understands risks of not doing so in detail. Dutch Zhong MD bp check in [facility] RTO in I six months [facility] Miscellaneous Notes* Telephone Encounter - Sujey Albarran LPN - 02/21/2022 1:35 PM EDT See telephone note from 02/10. * Telephone Encounter - Roberto Anderson - 02/09/2022 5:04 PM EDT I attempted to contact patient to discuss xray results. No answer. Left message for patient to contact me to discuss Roberto Anderson DPM documented [facility]Kn[facility]06[facility]22 Miscellaneous Notes* Telephone Encounter - Roberto Anderson - 02/10/2022 12:17 PM EDT I spoke with patient after having communicated with ID. Patient will see Dr. Damon at 10:00 on . He will stop the cipro. Will start leavquin 500 mg daily. Will likely refill but will wait for ID appointment. Continue with local care to toe. Will see patient next week Roberto Anderson DPM documented [facility]Kn[facility]06-15-2022 Instructions* Patient Instructions* Roberto Anderson - 02/09/2022 1:29 PM EDT Continue with betadine between left 4th and 5th toe Apply lambs wool to prevent rubbing Repeat xrays today. Wear surgcial shoe Apply betadine between right 4th and 5th toe Consider using toe spacer on right documented in [facility]Kn[facility]06[facility]22 History of Present illness Narrative* Roberto Anderson - 02/09/2022 1:15 PM EDT FOLLOW UP PODIATRIC OFFICE VISIT Chief Complaint: This 51 year old who presents for follow up:fracture of left 4th toe with ulceration interdigitally. Patient presents to clinic for follow-up fracture of left 4th toe with interdigital ulceration. Patient is currently using betadine to resolve maceration and using lambs wool between toes. He is on keflex and is tolerating this nicely. He stopped the cipro because he wasn't feeling himself with cipro. He denies any drainage. He reports the redness is improving. He reports resolving erythema. He denies n/v/f/c. PAIN EVALUATION 02/09/2022 1257 Pain Level: 4 Pain Location: Toe Description: Aching;Dull Duration Amount of Time: 2 Duration Units: Weeks Frequency: Intermittent Intervention/Comfort measure: Reposition;Relaxation Hemoglobin A1C (POCT) Date Value Ref Range Status 02/04/2022 8.3 (A) 4.2 - 5.6 % Final Comment: Location:[facility], [address] [place], [address] Point of care (POC) Hemoglobin A1c (HGBA1C) testing is intended to assess glucose control and provide a management tool for patients known to have diabetes and their healthcare providers. Target HGBA1C levels may depend on specific clinical circumstances. POC HGBA1C is not intended for use as a diagnostic or screening test; laboratory-based testing should be used for diagnostic purposes. The following information is supplemental and may not be applicable to specific diabetes management situations: The POC device [employer] provides a normal range of 4.2% to 6.5% for the HGBA1C POC test. However, the [place] [employer] guidelines indicate that patients with HGBA1C in the range of 5.7% to 6.4% are at increased risk for development of diabetes and that intervention by lifestyle modification may be beneficial. A HGBA1C level greater than or equal to 6.5% is considered diagnostic of diabetes, pending confirmatory testing. Use of HGBA1C testing to evaluate glucose control may not be appropriate for patients with hemoglobin variants or other conditions (e.g. anemia) that alter red blood cell lifespan. 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 from pancreatitis. Villous adenoma Current Outpatient Medications Medication Sig meclizine (ANTIVERT) 25 mg tab Take 1 tablet by mouth three times daily for 15 doses. cephALEXin (KEFLEX) 500 mg capsule Take 1 capsule by mouth three times daily. ARIPiprazole (ABILIFY) 2 mg tablet Take 2 tablets by mouth once daily. gabapentin (NEURONTIN) 100 mg capsule take 1 capsule by mouth three times a day lisinopril (PRINIVIL) 10 mg tablet Take 10 mg by mouth once daily. doxazosin (CARDURA) 2 mg tablet Take 1 tablet by mouth once daily. insulin glargine (LANTUS SOLOSTAR U-100 INSULIN) 100 unit/mL (3 mL) Inject 48 Units subcutaneously twice daily. Inject subcutaneously 40 units AM and 45 units PM insulin lispro (ADMELOG SOLOSTAR U-100 INSULIN) 100 unit/mL Inject subcutaneously 40 at breakfast, 45 units lunch, 45 units dinner plus SS up to 140 units daily omeprazole (PRILOSEC) 20 mg capsule Take 1 capsule by mouth daily before breakfast. 1/2 hr before meal. gemfibrozil (LOPID) 600 mg tablet Take 1 tablet by mouth twice daily. rosuvastatin (CRESTOR) 40 mg tablet Take 1 tablet by mouth once daily. atenolol (TENORMIN) 50 mg tablet Take 1 tablet by mouth twice daily. sertraline (ZOLOFT) 100 mg tablet Take 1 tablet by mouth once daily. Blood-Glucose Meter (FREESTYLE LITE METER) monitoring kit 1 Each as needed. sildenafil (REVATIO) 20 mg tablet 2 to 5 tabs a day prn. Multivitamin capsule Take 1 capsule by mouth once daily. alcohol swabs padm Use 8 swabs daily TO CHECK BLOOD SUGAR AND FOR INSULIN INJECTIONS blood sugar diagnostic (FREESTYLE LITE STRIPS) test strip TEST four times a day, IDDM, E11.65 Insulin [place], Disposable, (PEN NEEDLES) 31 gauge x 1/4 ndle One needle per dose; 4 per day docosahexanoic acid/epa (FISH OIL ORAL) Take by mouth once daily. Lancets lancets TEST BLOOD SUGARS 4 TIMES DAILY. E10.9. Uses insulin. VITAMIN E, DL,TOCOPHERYL ACET, (VITAMIN E, DL, ACETATE,) 1,000 unit cap Take 1 capsule by mouth once daily. FERROUS SULFATE, DRIED (IRON, DRIED, ORAL) Take 1 tablet by mouth one time a week. Ascorbic Acid (VITAMIN C) 1,000 mg tablet Take 1 tablet by mouth once daily. Cholecalciferol, Vitamin D3, (VITAMIN D) 1,000 unit cap Take 1 capsule by mouth every other day cyanocobalamin (VITAMIN B-12) 500 mcg tab Take 2 tablets by mouth once daily ciprofloxacin HCl (CIPRO) 500 mg tablet Take 1 tablet by mouth twice daily for 10 days. FOR 7 DAYS.(Patient not taking: Reported on 02/09/2022 ) carBAMazepine (TEGRETOL) 200 mg tablet Take 3 tablets by mouth twice daily. midazolam (NAYZILAM) 5 mg/spray (0.1 mL) nasal spray Use 1 spray in one nostril as needed for seizures. May repeat dose in alternate nostril after 10 minutes based on response and tolerability. (Patient not taking: Reported on 02/04/2022) omega 5-pem-zqz-fish oil 300-400-1,000 mg cap Take 1 capsule by mouth once daily. No current facility-administered medications for this visit. ALLERGIES Allergen Reactions Amlodipine Swelling Uncomfortable swelling Claritin [Loratadin* Hives Erythromycin Spacey Feeling Hayfever [Homeopath* Lisinopril Other: See Comments Hyperkalemia PAST SURGICAL HISTORY Procedure Laterality Date APPENDECTOMY age 6 COLONOSCOPY FLX DX W/COLLJ SPEC WHEN PFRMD 11/06/2012 Colonoscopy repeat 1 year COLONOSCOPY FLX DX W/COLLJ SPEC WHEN PFRMD 12/04/2013 Colonoscopy COLONOSCOPY FLX DX W/COLLJ SPEC WHEN PFRMD 08/26/15 Colonoscopy ESOPHAGOGASTRODUODENOSCOPY TRANSORAL DIAGNOSTIC 11/06/2012 EGD PAST SURGICAL HISTORY OF 07/2014 right hemicolectomy Physical Exam: OBJECTIVE: Constitutional: Pt is a well developed 51 year old male who is alert, oriented, cooperative and in no apparent distress. Eyes: Following during examination. No redness or drainage. Respiratory: RR normal and nonlabored. Even breathing. No evidence of distress. Psychology: Patient is engaged during conversation. Normal affect and mood. Does not appear depressed or anxious. NVSI unchanged from previous visit. Dermatological: Ulceration #1 LocatioN: left 4th toe Measurement: 6 mm x 3 mm x 1 mm with granular base however, with periwound maceration. No exposed bone. No drainage. No clinical signs of infection. Maceration is noted interdigitally to right 4th interspace. No open wounds to right 4th interspace. Musculoskeletal/Orthopaedic: There is swelling present to left 4th toe. The swelling does appear to be improving. 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 It does appear to be healing. It did measure 1.0 cm x 0.5 cm x 0.2 cm on January 28. Now the ulceration measures 6 mm x 3 mm x 1mm. Today, I debrided the ulceration of nonviable tissue thru subcutaneous tissue with tissue nippers and 15 blade. Bleeding was present and controlled with pressure and silver nitrate. Given that the combination of lambs wool and betadine is making the wound smaller, I will continue with this. We discussed use of drew but if the current treatment is helping, I will continue. I reviewed past xrays. Past xrays were concerning for healing fracture. There were no signs of osteomyelitis of past xray. I am going to repeat xrays today. Will notify patient of xray results. Continue with post-op shoe I did inform patient that he still has wound and certainly a wound in this location can be difficult to heal and could lead to osteomyelitis. If osteomyelitis present, may require amputation. I do feel that amputation of the 4th toe would eliminate rubbing on 5th toe which in this patient, places him at risk of ulceration. This patient wishes to avoid amputation if at all possible. He does have maceration of right 4th interspace. Recommend use of lambs wool and betadine to avoid rubbing. Discussed options for hammertoes but in absence of wounds on right foot, would avoid elective surgery on a patient with a1c >8. I will get xrays. Will continue with keflex. Will call patient with results of xrays. Roberto Anderson DPM * Shima Saez RN - 02/09/2022 12:57 PM EDT AMB ROOMING INTAKE FLOWSHEET DATA Pain Pain Level: 4 Pain Location: Toe Description: Aching, Dull Duration Amount of Time: 2 Duration Units: Weeks Frequency: Intermittent Intervention/Comfort measure: Reposition, Relaxation Patient presents with: Left 4th Toe - Follow Up, Ulcer Patient continues post op shoe. Still taking Keflex. States pain is better than it was at last visit. documented in this [facility]Kn[facility]06-[facility]-2022 Miscellaneous Notes* Telephone Encounter - Eden Diamond APRN.SARAH - 02/04/2022 3:52 PM EDT Message reviewed and agree with documentation. Visit cancelled for today. * Telephone Encounter - So Rosa RN - 02/04/2022 12:06 PM EDT Patient here today for a follow on Type 2 Diabetes Mellitus. Patient experienced symptoms of dizziness, light headed, nausea, diaphoresis, pale in color at the start of the visit. Patient was transferred to exam table from chair with by provider and 2 nurses. Patient was in lying position. Vitals/POCT Glucose were obtained: Time 1138 T: 96.2 (Temporal) patient is very diaphoretic which could alter this reading. BP: 114/68 P: 45 O2: 99 % RA POCT Glucose 262 Time: 1142 BP: 138/80 HR: 55 O2: 98% RA Paramedics called at 1146 as patient was not able to sit up without increase in symptoms. Transportneeded to take to [place] [facility]. Paramedics arrived at 1153. Assessment and hand off report. Patient deemed stable and [facility] 2 nurses, and provider at bedside to assist. Time: 1147 BP: 137/79 P: 52 O2 98% RA Patient reports that he took 1 Vicodin at 0800 for Toe Pain, but has taken this in the past with noissues. Time 1149 BP: 141/79 HR: 55 O2: 98 % RA documented in this encounterKnox [facility]06-10-2022 NoteHNO ID: [id number] Author: RT Julius(R) Service: Radiology Author Type: Technologist Type: Progress Notes Filed: 02/04/2022 1:11 PM Note Text: Radiology Service Progress Note PATIENT NAME: Reginaldo Huffman DATE OF SERVICE: February 04, 2022 TIME: 1:11 PM PATIENT IDENTITY VERIFICATION COMPLETED USING TWO (2) IDENTIFIERS: Name and Date of confirmed by patient verbally and Name and Date of confirmed by identification band. FALL SCREENING: Has the patient had 2 falls in the last year or 1 fall with injury or currently using an Ambulatory Assistive Device (Walker, Cane, Wheelchair, Crutches, etc.)? 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 Problem list updated. Thank you * Telephone Encounter - Didi Garcia LPN - 02/04/2022 9:03 AM EDT [facility] [place] [facility] HM Updated. documented in this encounterKnox [facility]06-06-2022 History of Present illness Narrative* Lisette Lovell DO - 01/31/2022 2:00 PM EDT Infectious Disease E-Consult Response In response to your eConsult Infectious Disease request for Reginaldo Huffman regarding: ulcerated left 4th toe. History of present illness provided through requesting provider documentation and current treatmentplan was reviewed. Based on the patient history provided, my impression is as follows: Mr. Huffman is a 51 year old male with a PMH of left 4th toe ulcer with underlying fracture after stubbing his toe 3 weeks ago. Seen in [place] ER on 01/26 with xrays showing L 4th toe fracture. He was given keflex due to the redness. He was then followed up by podiatry on 01/28. Wound was noted to be 1.0 cm x 0.5 cm x 0.1 cm with granular base, periwound maceration, slightly serous drainage, with significant edema surrounding. Wound culture was done by podiatry on 01/28 and is growing many proteus mirabilis (S- ampicillin, augmentin, ceftriaxone, cipro, bactrim) and many skin nancy. Patient was placed on cipro for 1-2 weeks for a for a soft tissue infection. ID E- consult for recommendation for addition of cipro. This patient has retained susceptibility toampicillin and likely keflex. Cipro would be beneficial for bone penetration but it appears the aimis to treat a skin an soft tissue infection. There is likely no benefit in adding the cipro to the keflex for skin and soft tissue coverage of the ulcer. Specialist appointment needs: No appointment necessary Lisette Loevll DO January 31, 2022 documented in this encounterKnox [facility] Hospital06-06-2022 Miscellaneous Notes* Telephone Encounter - Roberto Anderson - 01/31/2022 12:25 PM EDT I called patient today to check on his toe. He states his wound is not larger but is similar in size as it was on Monday. He states that the redness of his toe is improving . He is on keflex. Wound culture does show proteus. I am going to have him continue with keflex but Iwill add cipro. I am going to check with ID to determine if keflex or cipro would be better in thiswound with underlying bone fracture. I informed patient that this wound could be challenging to heal given the swelling of his toe and the potential for rubbing on adjacent 5th toe. He still would like to salvage this toe. He states his toe is macerated. I will have him switch dressing changes to twice daily and will have him apply betadine to the toe wound following by keith between the toes to prevent rubbing. He will remain on keflex and cipro and I will do e consult to ID. Patient has my number and will contact me if he has any issues He is informed that this provider is out of the office until next Monday so if he has any issues, he is to present to ED Roberto Anderson DPM documented in this encounterKnox [facility] Hospital06-03-2022 Instructions* Patient Instructions* Roberto Anderson - 01/28/2022 3:12 PM EDT You have new ulceration of left 4th toe the results of increased swelling from a recent fracture. Recommend applying betadine in webspace if any moisture present, use drew to help heal ulceration. This can be applied daily. Use guaze or lambs wool between all toes to prevent rubbing. Any rubbing between the toes can make this ulceration difficult to heal. Your ulceration of left 4th toe measures 1.0 cm x 0.5 cm. This hopefully can heal with taking any rubbing away from the toes. If the wound fails to heal, I would consider amputation. Place betadine between right 4th and 5th toe. Apply lambs wool to prevent rubbing. Diabetes Foot Care Instructions When you have diabetes, proper foot care is very important. Poor foot care may lead to amputation of a foot or leg. As a person with diabetes, you are more vulnerable to foot problems, because diabetes can damage your nerves and reduce blood flow to your feet. Here are some diabetes foot care tips to follow: Wash and Dry Your Feet Daily Use mild soaps Use warm water Pat your skin dry; do not rub. Thoroughly dry your feet. After washing, use lotion on your feet to prevent cracking. Do not put lotion between your toes. Examine Your Feet Each Day Check the tops and bottoms of your feet. Have someone else look at your feet if you cannot see them. Check for dry, cracked skin. Look for blisters, cuts, scratches, or other sores. Check for redness, increased warmth, or tenderness when touching any area of your feet. Check for ingrown toenails, corns, and calluses. If you get a blister or sore from your shoes, do not pop it. Apply a bandage and wear a differentpair of shoes. Take Care of Your Toenails Cut toenails after bathing, when they are soft. Cut toenails straight across and smooth with a nail file. Avoid cutting into the corners of toes. Do not cut cuticles. If you have neuropathy (or decreased sensation in your feet) a manager appointment should always cut your toenails. Be Careful When Exercising Walk and exercise in comfortable shoes. Do not exercise when you have open sores on your feet. Protect Your Feet With Shoes and Socks Never go barefoot. Always protect your feet by wearing shoes or hard-soled slippers or footwear. Avoid shoes with high heels and pointed toes. Avoid shoes that expose your toes or heels (such as open-toed shoes or sandals). These types of shoes increase your risk for injury and potential infections. Try on new footwear with the type of socks you usually wear. Do not wear new shoes for more than an hour at a time. Change your socks daily. Look and feel inside your shoes before putting them on to make sure there are no foreign objects orrough areas. Avoid tight socks. Wear natural-fiber socks (cotton, wool, or a cotton-wool blend). Wear special shoes if your health care provider recommends them. Wear shoes/boots that will protect your feet from various weather conditions (cold, moisture, etc.). Make sure your shoes fit properly. If you have neuropathy (nerve damage), you may not notice that your shoes are too tight. Perform the footwear test described below. Footwear Test Use this simple test to see if your shoes fit correctly: Stand on a piece of paper. (Make sure you are standing and not sitting, because your foot changes shape when you stand.) Trace the outline of your foot. Trace the outline of your shoe. Compare the tracings: Is the shoe too narrow? Is your foot crammed into the shoe? The shoe should be at least 1/2 inch longer than your longest toe and as wide as your foot. Proper Shoe Choices The following types of shoes are best for people with diabetes Closed toes and heels Leather uppers without a seam inside At least 1/2 inch extra space at the end of your longest toe Inside of shoe should be soft with no rough areas Outer sole should be made of stiff material Shoes should be at least as wide as your feet Tips for Foot Care in Diabetes Don't wait to treat a minor foot problem if you have diabetes. Follow your health care provider's guidelines and first aid guidelines. Report foot injuries and infections to your health care provider immediately. Check water temperature with your elbow, not your foot. Do not use a heating pad on your feet. Do not cross your legs. Do not self-treat your corns, calluses, or other foot problems. Go to your health care provider or manager appointment to treat these conditions. documented [facility] History of Present illness Narrative* RT Kolby(R) - 01/28/2022 2:20 PM EDT Radiology Service Progress Note PATIENT NAME: Reginaldo Huffman DATE OF SERVICE: January 28, 2022 TIME: 2:45 PM PATIENT IDENTITY VERIFICATION COMPLETED USING TWO (2) IDENTIFIERS: Name and Date of confirmedby patient verbally. FALL SCREENING: Has the patient had 2 falls in the last year or 1 fall with injury or currently using an Ambulatory Assistive Device (Walker, Cane, Wheelchair, Crutches, etc.)? No PATIENT GENDER DATA: Male PATIENT RELEVANT IMPLANT DATA REVIEWED: Not Applicable RADIOLOGY DEPARTMENT: General X-ray: Exam(s) Completed: Lower Extremity X- Ray(s): Foot, Left and Wt. Bearing PERIPHERAL IV DATA: Not applicable SIGNED BY: RT Kolby(R) January 28, 2022 2:45 PM documented in this encounterKnox [facility]06-03-2022 History of Present illness Narrative* Roberto Anderson - 01/28/2022 1:42 PM EDT Subjective: Patient presents to clinic c/o painful toenails. They state that the nails are especially painful with shoe gear and pressure. Patient states that nails 1-5 b/l are painful. Patient reports that he recently noticed pain and swelling in left 4th toe. He presented to the [place] emergency room and had xrays taken. xrays apparently had fracture of 4th toe proximal phalanx. He is in post-op shoe. Patient states the pain is getting better but there is still considerable swelling. Patient is currently taking keflex and the redness is getting better. He does not recall any recent trauma to his foot but does report about 3 weeks ago, he bumped his toe against his telephonestand and developed swelling. He was last seen in october. He was found to have maceration between his left 4th and 5th toes with small callus/pinpoint wound of left 4th toe. He treated with betadine and lambs wool and the toe healed and remained healed until his recent injury. He states that when the wound recently developed, hetried to treat himself and did not think to contact this office. Patient admits to being diabetic. No other pedal complaints at this time. Patient states no change in medications or medical history since last visit. Objective: Patient presents to clinic ambulating in sneaker right foot and surgical shoe left foot. Vasc: DP and PT pulses are palpable bilateral. CFT is less than 5 seconds bilateral. Skin temperature is warm to cool proximal to distal bilateral. There is + edema of left 4th toe Neuro: Protective sensation is absent to the foot and toes when tested with the 5.07 SWM bilateral.Vibratory sensation is absent at the hallux IPJ bilateral. The hallux is downgoing bilateral. Derm: Nails 1-5 b/l are painful, discolored-yellow, thick, crumbly, dystrophic and with subungal debris. Maceration is noted of b/l 4th interspace Ulceration: #1 Location: lateral aspect of left 4th toe Measurement: 1.0 cm x 0.5 cm x 0.1 cm. Base is granular with periwound maceration. Slight serous drainage noted Significant edema noted. Ortho: + swelling of left 4th toe xrays of left foot reviewed: there is nondisplaced fracture with early healing of left 4th toe proximal phalanx. Subacute healing fracture LEFT fourth toe proximal phalanx. No radiographic evidence of osteomyelitis. Assessment: (E10.42) Type 1 diabetes mellitus with diabetic polyneuropathy (HCC) (primary encounter diagnosis) (E10.621, L97.521) 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, limited to (B35.1) Onychomycosis (M79.675) Pain in toe of left foot (M79.674) Pain in toe of right foot (S92.515B) Open nondisplaced fracture of proximal phalanx of lesser toe of left foot, initial encounter Plan: Patient was seen and evaluated. Nails 1-5 bilateral were debrided in length and thickness. Discussed new ulceration of left 4th toe. Patient reports this wound started about one month ago. He feels it was the result of stubbing his toe. He states he recalls stubbing his toe and developing swelling and a few days later, noted a large blister that turned into a wound. Prior to his injury, he denies any wounds being present to 4th toe. He had been treating with betadine and unfortunately,the wound has not progressed, but only has gotten worse. He presented to emergency room on Monday where xrays were concerning for fracture. He was placed in post-op shoe and given keflex On exam, he has large wound to left 4th toe with serous drainage. The wound was cultured and will have him continue with antibiotics. It should be noted that this patient has significant pain in his left 4th toe. He has known injury about 3 weeks ago with xrays suggestive of fracture. Given his pain and recent injury, it is reasonable to suspect that he indeed has fracture and less likely osteomyelitis. Certainly a wound with underlying fracture, one has to think of possible osteomyelitis. Will monitor this closely and amputation is possible outcome. xrays are suggestive of fracture. Per my read, he has nondispalced fracture of proximal phalanx of left 4th toe. Per radiology read, he has nondisplaced fracture with early healing. No evidence of osteomyelitis. I discussed options with patient. My greatest concern is that the location of this ulceration in presence of swelling makes this wound very difficult to heal due to rubbing on 5th toe . Further, the 4th toe swelling does place patient at risk of transfer lesions to the 3rd or 5th toe. We discussed options. I discussed amputation of left 4th toe . This would eliminate any rubbing, get rid of the fracture and in event osteomyelitis were present, could help to remove bone infection. While this patient listened to this option, he would like to attempt to save the toe. I am going to have him treat with drew, guaze and/or lambs wool to prevent rubbing and will have patient repeat xrays in 2 weeks. In addition, I cultured the wound and will start patient on antibiotic. This provider is out of town next week. If issues were to develop, he is to present to ED. F/u in 2 weeks. Patient informed that should he develop any issues in future ,he is to contact the office and schedule immediate follow-up. Slight maceration is noted in right 4th interspace without wounds. Recommend betadine and lambs wool to prevent rubbing. Patient was instructed on the continued importance of diabetic foot care along with proper diet andkeeping their blood sugar under control to prevent complications. Roberto Anderson DPM * Shahida Lebron - 01/28/2022 1:31 PM EDT IMPRESSION: 1. Fracture distal aspect proximal phalanx of the fourth toe. 2. Soft tissue swelling of the fourth toe. Electronically Signed: Oswald Hamilton MD at 4:40 EDT * Shahida Lebron - 01/28/2022 1:27 PM EDT Patient presents with: Left Foot - Follow Up, Diabetic Foot Care Right Foot - Follow Up, Diabetic Foot Care Left 4th Toe - New, Fracture AMB ROOMING INTAKE FLOWSHEET DATA Risk Screening Do you have concerns about personal safety or safety in the home?: No Pain Pain Level: 6 Pain Location: Toe Description: Burning, Throbbing Duration Amount of Time: 2 Duration Units: Weeks Frequency: Continuous Intervention/Comfort measure: Medication Comments: Hydrocodone/elevation documented in this encounterKn[facility]05-12-2022 Miscellaneous Notes* Telephone Encounter - Brooklyn Cortez [facility] - 01/06/2022 11:27 AM EDT Patient has been identified by name and date of : Yes Pending Prescriptions Disp Refills ARIPIPRAZOLE 2 MG TABLET 180 tablet 0 Sig: Take 2 tablets by mouth once daily. JULIEN: No RX INSTRUCTIONS: Patient is out of medication. Please send today. Patient aware RX will be sent to pharmacy. No need to notify patient. Brooklyn Briceno documented in this encounterKn[facility]04-29-2022 Miscellaneous Notes* Telephone Encounter - eLo Harris - 12/24/2021 4:40 PM EDT RX INSTRUCTIONS: Patient aware RX will be sent to pharmacy. No need to notify patient. Last OV: 12/22/2021 Last refill: 10/26/2021 With 90 and 1 refills Last oarrs report completed: N/A PLEASE REVIEW ON EPIC Follow up: 03/30/22 with PCP- 3 month F/U Leo Harris * Telephone Encounter - Chanel Velásquez - 12/24/2021 4:04 PM EDT Patient checking the status of his refill request. documented in this encounterKn[facility]04-29-2022 Miscellaneous Notes* Telephone Encounter - Sarah Howard LPN - 12/24/2021 12:06 PM EDT Notified patient of lab results. * Telephone Encounter - Sarah Howard LPN - 12/23/2021 1:15 PM EDT CEA not available in [facility] system. Dr Zhong aware. Results faxed to Dr Ibarra. Await final result before calling patient. * Telephone Encounter - Dutch Zhong MD - 12/23/2021 8:45 AM EDT Anemia is stable potassium is ok. . CEA looks ok but I need to see what his last one was. Can we pull he ceas from [facility] computer for me to see documented in this encounterKnox [facility] Hospital04-19-2022 Miscellaneous Notes* Telephone Encounter - Linda Baxter Ma - 12/14/2021 5:34 PM EDT Patient made aware of provider message and verbalizes understanding * Telephone Encounter - Abimbola Amos PA-C - 12/14/2021 5:23 PM EDT Why did he stop doxazocin? There were no instructions to do this? Please resume and recheck BP next OV. Please ask him to not change medications without consulting a provider- this can be dangerous to suddenly stop. Thanks, Donte Amos PA-C * Telephone Encounter - Alia Villegas HEIDE - 12/14/2021 10:14 AM EDT Manual Readin/88 Pulse: 74 BP Shant average: 154/73 P: 73 Repeat BP Check: 156/74 P73 #1 153/71 P73 #2 153/71 P73 #3 152/75 P73 #4 157/75 P73 #5 153/74 P71 #6 Reason for blood pressure check - Last BP elevated and Medication adjustment Patient is: Taking medication as prescribed No Took medication today Yes If no, date medication last taken N/A Experiencing side effects No BP was elevated at visit 11/24. Lisinopril was d/c at that time and he was started on Doxazosin 1mg.On 11/27/21 Doxazosin was increased to 2mg, and on 11/30/21 Amlodipine was d/c because he was having swelling in lower extremities. He has also had recent treatment in ER for elevated K+. Reports that hewas doing better with swelling after Amlodipine was stopped, but this has begun to occur again so he stopped the Doxazosin approx 1 weeks ago. Still has 1+ pitting edema in left ankle area. Denies any chest pain, shortness of breath, or dizziness. Has had some headaches recently; treating with Tylenol. Daily caffeine use. Past personal history of tobacco use; no current exposure. Alert and oriented. Pt has been identified by name and birthdate: Yes Allergies reviewed: Yes Latex allergy: no. Medication - prescribed and OTC reviewed and updated: Yes Do you need any prescription refills prior to your next visit: No Health Maintenance: Reviewed and not up to date and provider notified Patient advised that he would be contacted after review by Dr inclusion paraeducator. Alia Villegas LPN documented in this encounterKnox [facility]04-19-2022 History of Present illness Narrative* Alia Villegas LPN - 12/14/2021 9:48 AM EDT Manual Readin/88 Pulse: 74 BP Shant average: 154/73 P: 73 Repeat BP Check: 156/74 P73 #1 153/71 P73 #2 153/71 P73 #3 152/75 P73 #4 157/75 P73 #5 153/74 P71 #6 Reason for blood pressure check - Last BP elevated and Medication adjustment Patient is: Taking medication as prescribed No Took medication today Yes If no, date medication last taken N/A Experiencing side effects No BP was elevated at visit 11/24. Lisinopril was d/c at that time and he was started on Doxazosin 1mg.On 11/27/21 Doxazosin was increased to 2mg, and on 11/30/21 Amlodipine was d/c because he was having swelling in lower extremities. He has also had recent treatment in ER for elevated K+. Reports that hewas doing better with swelling after Amlodipine was stopped, but this has begun to occur again so he stopped the Doxazosin approx 1 weeks ago. Still has 1+ pitting edema in left ankle area. Denies any chest pain, shortness of breath, or dizziness. Has had some headaches recently; treating with Tylenol. Daily caffeine use. Past personal history of tobacco use; no current exposure. Alert and oriented. Pt has been identified by name and birthdate: Yes Allergies reviewed: Yes Latex allergy: no. Medication - prescribed and OTC reviewed and updated: Yes Do you need any prescription refills prior to your next visit: No Health Maintenance: Reviewed and not up to date and provider notified Patient advised that he would be contacted after review by inclusion paraeducator. Alia Villegas LPN documented in this encounterKnox [facility] Hospital04-07-2022 Miscellaneous Notes* Telephone Encounter - Kassie Melchor RPh - 12/02/2021 11:07 AM EDT PharmD reviewed medication list for possible renal dosing. No medications require renal dose adjustments at this time. Renal fxn as of today, 12/02: eGFR 51 CrCl 51-75 mL/min (depending on weight used) Renal dose adjustments to consider in future if needed: Atenolol 50mg BID --> 50mg daily IF CrCl <30 Gemfibrozil 600mg BID --> reduce by 75% IF eGFR <50 (OR if Scr >2mg/dL) Rosuvastatin --> 5 or 10mg daily IF CrCl <30 Kassie Melchor PharmD, [facility] Primary Care Clinical Pharmacist Eddi Harrison [facility] * Telephone Encounter - Linda Baxter Ma - 12/02/2021 8:06 AM EDT Spoke with pt. Will increase water intake and complete IFOBT before next visit. Will recheck lab in one week. Will forward to pharmacy for review. * Telephone Encounter - Linda Baxter Ma - 12/02/2021 8:04 AM EDT ----- Message from Abimbola Amos PA-C sent at 12/01/2021 11:36 AM EDT ----- Labs were meant to be done in 4 weeks. He looks more dehydrated. Creatinine is also increased. Potassium is elevated again. Please push fluids with water, non-caffeinated and non-alcoholic beverages. Recheck in 1 week with BMP. Orders placed. Please ask if pharmacy could run meds to see what needs adjusted for renal dosing. I can place consult if needed. Please have Reginaldo come in and complete IFOBT before 4 week f/u. Thanks, Donte Amos PA-C documented in this encounterKnox [facility] Hospital04-05-2022 Miscellaneous Notes* Telephone Encounter - Lindamei Baxter Ma - 11/30/2021 10:54 AM EDT Pt will be seen today. Closing encounter. Linda Baxter Ma * Telephone Encounter - Dave Wallace LPN - 11/29/2021 1:54 PM EDT TC to pt, left message to return call to office. Dave Wallace LPN * Telephone Encounter - Dutch Zhong MD - 11/29/2021 1:32 PM EDT Ok. Likely not the med. Could be cellulitis. If bad, to urgent care or ER before. * Telephone Encounter - Dave Wallace LPN - 11/29/2021 1:25 PM EDT TC to pt, notified of provider response. Pt states he has been taking 5mg since Monday. He statesL foot is worse now. Pain is 8/10, described as sharp/throbbing. Pt notes a lot of redness. Pt states unable to tell if warm to touch. Appt scheduled for tomorrow with Donte at 3pm. * Telephone Encounter - Dutch Zhong MD - 11/29/2021 11:34 AM EDT Cut it to 5 mg a day. Have bp check this week * Telephone Encounter - Nannette Huerta RN - 11/29/2021 10:50 AM EDT Patient's mother calls and states that patient was seen in [facility] ER on Monday. Mother reports that patient does not have DVT, but ED told her that the cause of the swelling was that amlodipine dosageis too high. Mother all asking for guidance in regards to this. Please review and advise, Nannette Huerta RN documented in this encounterKnox [facility] Hospital04-02-2022 History of Present illness Narrative* Dutch Zhong MD - 11/27/2021 10:58 AM EDT Patient presents with: Edema: left leg, knee to foot, since last night HPI: Patient presents today for office visit for acute visit. Presents today with new onset focal leg edema. No hx of previous PE or DVT with himself. Although his mother has had recurrent PE's Also recently had ridden in a car last weekend down and back to [place]. No injury. Just began yesterday. Was very red last night. Slightly warm. No fever. No chest pain. Did note he was a little short of breath last night after walking last pm. We have been adjusting meds due to his renal function. He has been on a higher dose of amlodipine for several weeks but his right leg has been fine. His home bp has remained a little high. Has renal artery us ordered as well. Also had called him because his anemia has significantly worsened. He has refused repeat colonoscopies in the past to both Dr. Ibarra and myself. Had right sided colectomey in 2013 due to a colon cancer. He just had labs below. We had also stopped his maciej inhibitor due to his hyperkalemia that had been consistently up for weeks as high as above 6.0. His numbers and renal function are a little better. Again, he has a nephrology appt coming up. I discussed with him that certainly his worsening renal function could contribute to his anemia butgiven his history I worry about bleeding from recurrence of his cancer. He truly needs repeat gi evaluation and avoiding it could be life threatening. Recently started with diarrhea. No constipation No abd pain. No black or bloody stools. No fever. No nausea or vomiting. See previous ov on 11/24/21: Sent to er for significant hyperkalemia. Recheck over the weekend was from 6.9 down to 5 after holding his maciej. Both and and I have recommended nephrology follow up. bp is up today. Had not stopped his lisinopril. His sodium is lower as well. He is also on tegretol which may be contributing. He is seeing Dr. Rm on 12/17. Discussed that stopping the maciej will likely help with his electrolyte abnormalities. Discussed that we need to get bp better controlled as well. Discussed starting with alpha mariel vs central mariel. No chest pain, palpitations. No new dizziness or edema. Sugars are awful per him. He is now taking his lipid meds regularly. Discussed having him notify endo of his sugars. Discussed importance of working on diet. Sees oncology in March. Cbc had dropped as well. No bloody or black stools. Has declined further colonoscopies. Component Latest Ref Rng & Units 11/26/2021 WBC 3.70 - 11.00 k/uL 4.39 RBC 4.20 - 6.00 m/uL 3.01 (L) Hemoglobin 13.0 - 17.0 g/dL 9.0 (L) Hematocrit 39.0 - 51.0 % 27.6 (L) MCV 80.0 - 100.0 fL 91.7 MCH 26.0 - 34.0 pg 29.9 MCHC 30.5 - 36.0 g/dL 32.6 RDW-CV 11.5 - 15.0 % 12.9 Platelet Count 150 - 400 k/uL 181 MPV 9.0 - 12.7 fL 10.5 Neut% % 52.6 Abs Neut (ANC) 1.45 - 7.50 k/uL 2.31 Lymph% % 36.9 Abs Lymph 1.00 - 4.00 k/uL 1.62 [place]% % 7.1 Abs [place] <0.87 k/uL 0.31 Eosin% % 1.8 Abs Eosin <0.46 k/uL 0.08 Baso% % 0.5 Abs Baso <0.11 k/uL <0.03 Immature Gran % % 1.1 IMMATURE GRANS (ABS) <0.10 k/uL 0.05 NRBC /100 WBC 0.0 Absolute nRBC <0.01 k/uL <0.01 DTYPE Auto Glucose 74 - 99 mg/dL 107 (H) BUN 9 - 24 mg/dL 23 Creatinine 0.73 - 1.22 mg/dL 1.41 (H) Sodium 136 - 144 mmol/L 138 Potassium 3.7 - 5.1 mmol/L 4.8 Chloride 97 - 105 mmol/L 106 (H) CO2 22 - 30 mmol/L 22 Anion Gap 9 - 18 mmol/L 10 Calcium 8.5 - 10.2 mg/dL 9.4 eGFR >=60 mL/min/1.73m 60 Iron 41 - 186 ug/dL 69 TIBC 232 - 386 ug/dL 315 Transferrin Saturation 15 - 57 % 22 Vitamin B12 232-1,245 pg/mL 461 Folate >4.7 ng/mL 11.3 Ferritin 30.3 - 565.7 ng/mL 237.0 MEDICATIONS: Current Outpatient Medications Medication Sig doxazosin (CARDURA) 1 mg tablet Take 1 tablet by mouth once daily. insulin glargine (LANTUS SOLOSTAR U-100 INSULIN) 100 unit/mL (3 mL) Inject 48 Units subcutaneously twice daily. Inject subcutaneously 40 units AM and 45 units PM insulin lispro (ADMELOG SOLOSTAR U-100 INSULIN) 100 unit/mL Inject subcutaneously 40 at breakfast, 45 units lunch, 45 units dinner plus SS up to 140 units daily omeprazole (PRILOSEC) 20 mg capsule Take 1 capsule by mouth daily before breakfast. 1/2 hr before meal. amLODIPine (NORVASC) 10 mg tablet Take 1 tablet by mouth once daily. gabapentin (NEURONTIN) 100 mg capsule Take 1 capsule by mouth three times daily for 30 days. gemfibrozil (LOPID) 600 mg tablet Take 1 tablet by mouth twice daily. rosuvastatin (CRESTOR) 40 mg tablet Take 1 tablet by mouth once daily. atenolol (TENORMIN) 50 mg tablet Take 1 tablet by mouth twice daily. ARIPiprazole (ABILIFY) 2 mg tablet Take 2 tablets by mouth once daily. sertraline (ZOLOFT) 100 mg tablet Take 1 tablet by mouth once daily. carBAMazepine (TEGRETOL) 200 mg tablet Take 3 tablets by mouth twice daily. midazolam (NAYZILAM) 5 mg/spray (0.1 mL) nasal spray Use 1 spray in one nostril as needed for seizures. May repeat dose in alternate nostril after 10 minutes based on response and tolerability. Blood-Glucose Meter (FREESTYLE LITE METER) monitoring kit 1 Each as needed. sildenafil (REVATIO) 20 mg tablet 2 to 5 tabs a day prn. omega 2-nrw-uwr-fish oil 300-400-1,000 mg cap Take 1 capsule by mouth once daily. Multivitamin capsule Take 1 capsule by mouth once daily. alcohol swabs padm Use 8 swabs daily TO CHECK BLOOD SUGAR AND FOR INSULIN INJECTIONS blood sugar diagnostic (FREESTYLE LITE STRIPS) test strip TEST four times a day, IDDM, E11.65 Insulin [place], Disposable, (PEN NEEDLES) 31 gauge x 1/4 ndle One needle per dose; 4 per day docosahexanoic acid/epa (FISH OIL ORAL) Take by mouth once daily. Lancets lancets TEST BLOOD SUGARS 4 TIMES DAILY. E10.9. Uses insulin. VITAMIN E, DL,TOCOPHERYL ACET, (VITAMIN E, DL, ACETATE,) 1,000 unit cap Take 1 capsule by mouth once daily. FERROUS SULFATE, DRIED (IRON, DRIED, ORAL) Take 1 tablet by mouth one time a week. Ascorbic Acid (VITAMIN C) 1,000 mg tablet Take 1 tablet by mouth once daily. Cholecalciferol, Vitamin D3, (VITAMIN D) 1,000 unit cap Take 1 capsule by mouth every other day cyanocobalamin (VITAMIN B-12) 500 mcg tab Take 2 tablets by mouth once daily No current facility-administered medications for this visit. 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 from pancreatitis. Villous adenoma PAST SURGICAL HISTORY Procedure Laterality Date APPENDECTOMY age 6 COLONOSCOPY FLX DX W/COLLJ SPEC WHEN PFRMD 11/06/2012 Colonoscopy repeat 1 year COLONOSCOPY FLX DX W/COLLJ SPEC WHEN PFRMD 12/04/2013 Colonoscopy COLONOSCOPY FLX DX W/COLLJ SPEC WHEN PFRMD 08/26/15 Colonoscopy ESOPHAGOGASTRODUODENOSCOPY TRANSORAL DIAGNOSTIC 11/06/2012 EGD PAST SURGICAL HISTORY OF 07/2014 right hemicolectomy FAMILY HISTORY Problem Relation Age of Onset Diabetes Mother Hypertension Mother Diabetes Father Hypertension Father Stroke Paternal Uncle Heart Paternal Uncle Hypertension Sister Hypertension Brother Hypertension Maternal Grandmother Diabetes Maternal Grandmother Cancer Maternal Grandmother melanoma Hypertension Maternal Grandfather Diabetes Maternal Grandfather Hypertension Paternal Grandmother Cancer Paternal Grandmother melanoma Hypertension Paternal Grandfather Social History Tobacco Use Smoking status: Former Smoker Packs/day: 2.00 Years: 8.00 Pack years: 16.00 Types: Cigars Quit date: 10/27/2003 Years since quittin.0 Smokeless tobacco: Never Used Vaping Use Vaping Use: Never used Substance Use Topics Alcohol use: No Comment: recovering alcoholic, quit 2003 Drug use: No Reviewed current medications, allergies, past medical history, surgical history, family history andsocial history today. REVIEW OF SYSTEMS All other reviewed and negative other than HPI. HEALTH MAINTENANCE: Reviewed health maintenance issues today VITALS: BP 164/86 Pulse 68 Wt 101.2 kg (223 lb) SpO2 100% BMI 33.66 kg/m Last 4 Encounter Wt Readings: Date: Wt: 11/27/2021 101.2 kg (223 lb) 11/24/2021 101.2 kg (223 lb) 10/29/2021 99.7 kg (219 lb 12.8 oz) 10/13/2021 98.2 kg (216 lb 6.4 oz) PHYSICAL EXAMINATION: General appearance: Well appearing, alert, in no acute distress, well-hydrated, well nourished. Skin: Skin color, texture, turgor normal, no suspicious rashes or lesions Head: Normocephalic, no masses, lesions, tenderness or abnormalities Lungs: Lungs clear to auscultation. No wheezing, rhonchi, rales Heart: RRR without murmur, gallop, or rubs. No ectopy Abdomen: Normal abdominal exam, Abdomen soft, non-tender. Bowel sounds normal. No masses, organomegaly Extremities: left leg has one plus edema non pitting which is new. Calf tenderness. No red streaks or palpable cords. Musculoskeletal: No joint swelling, deformity, or tenderness Peripheral pulses: Normal ASSESSMENT/PLAN: 1. Edema of left lower leg - ICD9: 782.3, ICD10: R60.0 (primary diagnosis) - given his family hx of pe, recent travel hx and hx of malignancy, I worry about DVT. I am unable to get a duplex this weekend. He will need evaluated in the ER. He agreeable to go to [facility]. Will communicate via ER Passport and send copy of note. If he has DVT, will need to monitor hb closely in light of recent drop in hb. 2. Family history of DVT - ICD9: V17.49, ICD10: Z82.49 - as above. 3. Anemia, unspecified type - ICD9: 285.9, ICD10: D64.9 - again, concerned that in the last year and half his hb has dropped from over 12 to 9.0. - we had lengthy discussion regarding his cancer diagnosis. He refuses gi eval due to the fact her passes out from the prep. He does understand not evaluating his gi tract could lead to complicationsincluding . He has agreed to at least follow up sooner with Dr. Ibarra. Will send a a copy of note to him as well. 4. Stage 3a chronic kidney disease (HCC) - ICD9: 585.3, ICD10: N18.31 - improving since we have held his maciej. Will need to follow bp Has appt with nephrology and renal artery us coming up. Has previous renal us. Will continue to follow closely. Attempt to get better control of his bp. 5. Hyperkalemia - ICD9: 276.7, ICD10: E87.5 - Improved significantly since holding his maciej inhibitor. Was consistently above 5.0 until stopped. 6. 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 7. Essential hypertension - ICD9: 401.9, ICD10: I10 - suboptimal control - Increase cardura to 2 mg. - Continue meds. Increased amlodipine may cause increase edema but I would expect it in both legs. - Goal of BP <130/80 8. Type 1 diabetes mellitus with diabetic polyneuropathy (HCC) - ICD9: 250.61, 357.2, ICD10: E10.42 poorly controlled - encouraged to continue to follow with endo. 9. Pain of left lower extremity - ICD9: 729.5, ICD10: M79.605 - as above. Dutch Zhong bp check in two weeks. Keep next appt or prn Medical Decision Making [facility] Miscellaneous Notes* Telephone Encounter - Linda Baxter Ma - 11/27/2021 9:33 AM EDT When calling patient to advise of lab results, pt says his leg has been swelling all night and today. Will not go down, appt made for pt to come in * Telephone Encounter - Dutch Zhong MD - 11/26/2021 5:20 PM EDT His potassium and kidney function are improving since we stopped the lisinopril. His anemia however is worse. Iron and b12 are overall ok but given his history I am worried about his digestive tract. I would recommend he follow up with gi or surgery to rule out blood loss. Is he willing.? Because of drop. Recheck cbc and bmp in one week. Call if any bleeding etc. Also fax copy of labs to his oncologist. documented in this encounterKn[facility]03-30-[facility]22 History of Present illness Narrative* Dutch Zhong MD - 11/24/2021 9:09 AM EDT Patient presents with: ED Follow-up HPI: Patient presents today for office visit for follow up., Sent to er for significant hyperkalemia. Recheck over the weekend was from 6.9 down to 5 after holding his maciej. Both and and I have recommended nephrology follow up. bp is up today. Had not stopped his lisinopril. His sodium is lower as well. He is also on tegretol which may be contributing. He is seeing Dr. Rm on 12/17. Discussed that stopping the maciej will likely help with his electrolyte abnormalities. Discussed that we need to get bp better controlled as well. Discussed starting with alpha mariel vs central mariel. No chest pain, palpitations. No new dizziness or edema. Sugars are awful per him. He is now taking his lipid meds regularly. Discussed having him notify endo of his sugars. Discussed importance of working on diet. Sees oncology in March. Cbc had dropped as well. No bloody or black stools. Has declined further colonoscopies. Component Latest Ref Rng & Units 11/10/2021 11/10/2021 11/12/2021 11/19/2021 9:49 AM 9:49 AM Protein, Total 6.3 - 8.0 g/dL 7.3 7.3 Albumin 3.9 - 4.9 g/dL 4.4 4.4 Calcium 8.5 - 10.2 mg/dL 9.8 9.6 Bilirubin, Total 0.2 - 1.3 mg/dL 0.2 0.2 Alkaline Phosphatase 38 - 113 U/L 52 52 AST 14 - 40 U/L 15 15 ALT 10 - 54 U/L 9 (L) 9 (L) Glucose 74 - 99 mg/dL 219 (H) 272 (H) BUN 9 - 24 mg/dL 26 (H) 36 (H) Creatinine 0.73 - 1.22 mg/dL 1.53 (H) 1.68 (H) Sodium 136 - 144 mmol/L 133 (L) 131 (L) Potassium 3.7 - 5.1 mmol/L 6.1 (HH) 5.4 (H) 6.9 (HH) Chloride 97 - 105 mmol/L 103 101 CO2 22 - 30 mmol/L 22 20 (L) Anion Gap 9 - 18 mmol/L 8 (L) 10 eGFR >=60 mL/min/1.73m 54 (L) 48 (L) Cholesterol, Total <200 mg/dL 209 (H) Triglyceride <150 mg/dL 520 (H) HDL Cholesterol >39 mg/dL 30 (L) Non HDL Cholesterol <130 mg/dL 179 (H) Fasting Time hrs 14 VLDL Cholesterol 96 (H) TC:HDL Ratio <5.10 6.97 (H) LDL Cholesterol LDL:HDL Ratio Bilirubin, Conjug <0.2 mg/dL <0.2 Creatinine, Ur Random (UCRR) 20.0 - 300.0 mg/dL 57.4 Albumin, Urine Random mg/L 1,780.5 Albumin/Creat Ratio <30 mg/g 3,102 (H) LDL Cholesterol, Direct <100 mg/dL 83 CK 51 - 298 U/L 113 Carbamazepine 4.0 - 12.0 ug/mL 7.9 MEDICATIONS: Current Outpatient Medications Medication Sig omeprazole (PRILOSEC) 20 mg capsule Take 1 capsule by mouth daily before breakfast. 1/2 hr before meal. amLODIPine (NORVASC) 10 mg tablet Take 1 tablet by mouth once daily. insulin glargine (LANTUS SOLOSTAR U-100 INSULIN) 100 unit/mL (3 mL) Inject subcutaneously 40 units AM and 45 units PM insulin lispro (ADMELOG SOLOSTAR U-100 INSULIN) 100 unit/mL Inject subcutaneously 35 at breakfast, 40 units lunch, 45 units dinner plus SS up to 140 units daily gabapentin (NEURONTIN) 100 mg capsule Take 1 capsule by mouth three times daily for 30 days. gemfibrozil (LOPID) 600 mg tablet Take 1 tablet by mouth twice daily. rosuvastatin (CRESTOR) 40 mg tablet Take 1 tablet by mouth once daily. atenolol (TENORMIN) 50 mg tablet Take 1 tablet by mouth twice daily. ARIPiprazole (ABILIFY) 2 mg tablet Take 2 tablets by mouth once daily. sertraline (ZOLOFT) 100 mg tablet Take 1 tablet by mouth once daily. carBAMazepine (TEGRETOL) 200 mg tablet Take 3 tablets by mouth twice daily. midazolam (NAYZILAM) 5 mg/spray (0.1 mL) nasal spray Use 1 spray in one nostril as needed for seizures. May repeat dose in alternate nostril after 10 minutes based on response and tolerability. Blood-Glucose Meter (FREESTYLE LITE METER) monitoring kit 1 Each as needed. sildenafil (REVATIO) 20 mg tablet 2 to 5 tabs a day prn. omega 4-uxf-bmf-fish oil 300-400-1,000 mg cap Take 1 capsule by mouth once daily. Multivitamin capsule Take 1 capsule by mouth once daily. alcohol swabs padm Use 8 swabs daily TO CHECK BLOOD SUGAR AND FOR INSULIN INJECTIONS blood sugar diagnostic (FREESTYLE LITE STRIPS) test strip TEST four times a day, IDDM, E11.65 Insulin Keene, Disposable, (PEN NEEDLES) 31 gauge x 1/4 ndle One needle per dose; 4 per day docosahexanoic acid/epa (FISH OIL ORAL) Take by mouth once daily. Lancets lancets TEST BLOOD SUGARS 4 TIMES DAILY. E10.9. Uses insulin. VITAMIN E, DL,TOCOPHERYL ACET, (VITAMIN E, DL, ACETATE,) 1,000 unit cap Take 1 capsule by mouth once daily. FERROUS SULFATE, DRIED (IRON, DRIED, ORAL) Take 1 tablet by mouth one time a week. Ascorbic Acid (VITAMIN C) 1,000 mg tablet Take 1 tablet by mouth once daily. Cholecalciferol, Vitamin D3, (VITAMIN D) 1,000 unit cap Take 1 capsule by mouth every other day cyanocobalamin (VITAMIN B-12) 500 mcg tab Take 2 tablets by mouth once daily No current facility-administered medications for this visit. 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 from pancreatitis. Villous adenoma PAST SURGICAL HISTORY Procedure Laterality Date APPENDECTOMY age 6 COLONOSCOPY FLX DX W/COLLJ SPEC WHEN PFRMD 11/06/2012 Colonoscopy repeat 1 year COLONOSCOPY FLX DX W/COLLJ SPEC WHEN PFRMD 12/04/2013 Colonoscopy COLONOSCOPY FLX DX W/COLLJ SPEC WHEN PFRMD 08/26/15 Colonoscopy ESOPHAGOGASTRODUODENOSCOPY TRANSORAL DIAGNOSTIC 11/06/2012 EGD PAST SURGICAL HISTORY OF 07/2014 right hemicolectomy FAMILY HISTORY Problem Relation Age of Onset Diabetes Mother Hypertension Mother Diabetes Father Hypertension Father Stroke Paternal Uncle Heart Paternal Uncle Hypertension Sister Hypertension Brother Hypertension Maternal Grandmother Diabetes Maternal Grandmother Cancer Maternal Grandmother melanoma Hypertension Maternal Grandfather Diabetes Maternal Grandfather Hypertension Paternal Grandmother Cancer Paternal Grandmother melanoma Hypertension Paternal Grandfather Social History Tobacco Use Smoking status: Former Smoker Packs/day: 2.00 Years: 8.00 Pack years: 16.00 Types: Cigars Quit date: 10/27/2003 Years since quittin.0 Smokeless tobacco: Never Used Vaping Use Vaping Use: Never used Substance Use Topics Alcohol use: No Comment: recovering alcoholic, quit 2003 Drug use: No Reviewed current medications, allergies, past medical history, surgical history, family history andsocial history today. REVIEW OF SYSTEMS All other reviewed and negative other than HPI. HEALTH MAINTENANCE: Reviewed health maintenance issues today and recommended the following in detail. BP CONTROLLED (<130/80) Never done SHINGRIX VACCINE(1 of 2) Never done VITALS: BP 174/100 Pulse 80 Resp 18 Wt 101.2 kg (223 lb) BMI 33.66 kg/m Last 4 Encounter Wt Readings: Date: Wt: 11/24/2021 101.2 kg (223 lb) 10/29/2021 99.7 kg (219 lb 12.8 oz) 10/13/2021 98.2 kg (216 lb 6.4 oz) 07/30/2021 98.9 kg (218 lb) PHYSICAL EXAMINATION: General appearance: Well appearing, alert, in no acute distress, well-hydrated, well nourished. Skin: Skin color, texture, turgor normal, no suspicious rashes or lesions Head: Normocephalic, no masses, lesions, tenderness or abnormalitie Lungs: Lungs clear to auscultation. No wheezing, rhonchi, rales Heart: RRR without murmur, gallop, or rubs. No ectopy Abdomen: Normal abdominal exam, Abdomen soft, non-tender. Bowel sounds normal. No masses, organomegaly Extremities: No deformities, edema, skin discoloration, clubbing or cyanosis. Good capillary refill. Musculoskeletal: No joint swelling, deformity, or tenderness Peripheral pulses: Normal Neuro: Negative. ASSESSMENT/PLAN: 1. Hyperkalemia - ICD9: 276.7, ICD10: E87.5 (primary diagnosis) - stop lisinopril. Check renal artery us and follow labs closely. Monitor bp. Keep appt with nephrology. Reiterated to him the importance of being compliant with meds and diet and getting better control of sugars and abp - BASIC METABOLIC PNL - US RENAL ARTERY [facility] 2. Primary hypertension - ICD9: 401.9, ICD10: I10 - add alpha for now. See neprho. Follow bp closely - BASIC METABOLIC PNL - DOXAZOSIN 1 MG TABLET - US RENAL ARTERY [facility] 3. Hyponatremia - ICD9: 276.1, ICD10: E87.1 - as above. - BASIC METABOLIC PNL 4. Type 1 diabetes mellitus with diabetic polyneuropathy (HCC) - ICD9: 250.61, 357.2, ICD10: E10.42 poorly controlled - Reinforced to him to call his sugars into endo so they can adjust meds. - LANTUS SOLOSTAR U-100 INSULIN 100 UNIT/ML (3 ML) SUBCUTANEOUS PEN - INSULIN LISPRO (U-100) 100 UNIT/ML SUBCUTANEOUS PEN 5. Anemia, unspecified type - ICD9: 285.9, ICD10: D64.9 - has refused colonoscopy in the past even given his hx. May be related to his renal function but need to rule out bleeding. - CBC + DIFF - IRON + TIBC - VITAMIN B12 BLOOD - FOLATE SERUM - FERRITIN BLD - FECAL OCCULT BLOOD TEST 6. Stage 3 chronic kidney disease, unspecified whether stage 3a or 3b CKD (HCC) - ICD9: 585.3, ICD10: N18.30 - as above. 7. 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 8. Seizure disorder (HCC) - ICD9: 345.90, ICD10: G40.909 - stable. 9. Mixed hyperlipidemia - ICD9: 272.2, ICD10: E78.2 - suboptimal control - Continue current medication. - Encouraged following a low fat, low cholesterol diet. Dutch Zhong documented [facility]Kn[facility]03-28-2022 Miscellaneous Notes* Telephone Encounter - Dutch Zhong MD - 11/22/2021 11:57 AM EDT Repeat was 5.0 after stopping maciej. * Telephone Encounter - Sarah Howard LPN - 11/22/2021 11:56 AM EDT On desk to review. * Telephone Encounter - Dutch Zhong MD - 11/22/2021 10:57 AM EDT Can we obtain the ER report for me to review * Telephone Encounter - Didi Steele LPN - 11/22/2021 10:50 AM EDT Pt calling to notify pcp he did go to [facility] ED yest 11/21/21. Pt states he received potassium IV then was sent home. Pt was instructed to FU with pcp in 3-5 days. Pt scheduled 11/24/21 for ED FU. Didi Steele LPN documented in this encounterKn[facility]03-25-2022 Miscellaneous Notes* Telephone Encounter - Dutch Zhong MD - 11/19/2021 5:18 PM EDT Had estefania discussion with patient. Explained a potassium of 6.9 can lead to fatal arrhythmias. Explained his issues are related to his kidneys and the likelihood that his uncontrolled sugars are causing that. I have asked him to stop his lisinopril. He states he is aware he is not following my directions and that significant hyperkalemia can causedeath. He is instructed to not drive as well until it is rechecked. It sounds as if he will not go, at least in [facility]. He is fully aware of my recommendations andthat not following my advice can lead to . * Telephone Encounter - Jessica Friedman RN - 11/19/2021 4:38 PM EDT Pt called and is notified of providers message and instructions. Pt states he thinks it's from the Amlodipine working his kidneys too hard. Pt states he is in [place] right now and can't go to the hospital. He states, I don't know where it is, and my friend wouldn't let me. . I told the Pt that the provider encouraged him to go to the ER because his kidneys weren't functioning well. Let Pt knowhe could look the hospitals in his area up. He is not going to go to the ER, he said he will call provider back on Monday when he is back in town. Jessica Friedman, RN * Telephone Encounter - Linda Baxter Ma - 11/19/2021 4:22 PM EDT Spoke with pt. Advised pt of provider message. Pt had questions if amlodipine is causing the potassium to rise. Consulted with provider who said no, most likely coming from his kidneys not functioning well. Called patient back and left a very detailed message of provider message and recommendation to go to ER for treatment. Linda Baxter Ma * Telephone Encounter - Dutch Zhong MD - 11/19/2021 3:42 PM EDT We need to try and call him again before we leave * Telephone Encounter - Leigh Daily LPN - 11/19/2021 3:09 PM EDT TC to pt. Left a detailed message on a secure line with updates. Both lines, mobile and home. Leigh Daily LPN * Telephone Encounter - Dutch Zhong MD - 11/19/2021 3:00 PM EDT His repeat potassium is 6.9 which is life threatening. He needs to go immediately to the ER. We aregoing to have to treat it to bring it down documented in this encounterKn[facility]03-25-2022 Miscellaneous Notes* Telephone Encounter - Gini Hogan Ma - 11/19/2021 11:35 AM EDT Pt contact notified and will relay message to patient. Gini Hogan Ma * Telephone Encounter - Dutch Zhong MD - 11/19/2021 9:56 AM EDT Repeat bp is better. * Telephone Encounter - Alia Villegas LPN - 11/19/2021 9:19 AM EDT Manual Readin/86 Pulse: 76 Home Cuff: 134/67 P: 75 BP Shant average: 130/73 P: 76 Repeat BP Check: 141/73 P76 #1 138/74 P76 #2 125/74 P76 #3 142/73 P76 #4 113/72 P74 #5 121/72 P76 #6 Reason for blood pressure check - Last BP elevated and Medication adjustment Patient is: Taking medication as prescribed Yes Took medication today Yes If no, date medication last taken N/A Experiencing side effects No BP continued to be elevated at nurse visit 11/10/21. Amlodipine was increased to 10mg daily. Tolerating medication well. Home readings have ranged 117-164/70-109. Denies any chest pain, shortness of breath, or headaches. Has noticed some mild dizziness. Daily caffeine use; none today. Past personal h istory of tobacco use; no current exposure. Alert and oriented. Pt has been identified by name and birthdate: Yes Allergies reviewed: Yes Latex allergy: no. Medication - prescribed and OTC reviewed and updated: Yes Do you need any prescription refills prior to your next visit: Yes Health Maintenance: Reviewed and not up to date and provider notified Patient advised to continue with current medications and would be contacted if any further instructions after review by PCP. Alia Villegas LPN documented in this encounterKnox [facility]03-25-2022 History of Present illness Narrative* Alia Villegas LPN - 11/19/2021 8:54 AM EDT Manual Readin/86 Pulse: 76 Home Cuff: 134/67 P: 75 BP Shant average: 130/73 P: 76 Repeat BP Check: 141/73 P76 #1 138/74 P76 #2 125/74 P76 #3 142/73 P76 #4 113/72 P74 #5 121/72 P76 #6 Reason for blood pressure check - Last BP elevated and Medication adjustment Patient is: Taking medication as prescribed Yes Took medication today Yes If no, date medication last taken N/A Experiencing side effects No BP continued to be elevated at nurse visit 11/10/21. Amlodipine was increased to 10mg daily. Tolerating medication well. Home readings have ranged 117-164/70-109. Denies any chest pain, shortness of breath, or headaches. Has noticed some mild dizziness. Daily caffeine use; none today. Past personal h istory of tobacco use; no current exposure. Alert and oriented. Pt has been identified by name and birthdate: Yes Allergies reviewed: Yes Latex allergy: no. Medication - prescribed and OTC reviewed and updated: Yes Do you need any prescription refills prior to your next visit: Yes Health Maintenance: Reviewed and not up to date and provider notified Patient advised to continue with current medications and would be contacted if any further instructions after review by PCP. Alia Villegas LPN documented in this encounterKnox [facility]06-04-2021 NoteHNO ID: [id number] Author: Mindy Mayo APRN.LE[employer] Service: ? Author Type: Nurse Practitioner Type: Progress Notes Filed: 01/29/2021 12:17 PM Note Text: Neurology Consultation Note Date: January 29, 2021 Patient Name: Reginaldo Huffman Neurology was requested to evaluate Reginaldo Huffman, a 50 year old male for a chief complaint of trigeminal neuralgia. Our recommendations of care will be communicated by shared medical record. HPI: This is Mr. Reginaldo Huffman a 50 year old right handed male from [place] who presents to the [facility] outpatient neurology department with a chief complaint of trigeminal neuralgia for over 30 years in duration. Reginaldo states that he has had episodes where he gets sharp pain over the left side of his face and tremors of the left side of his body that started in his mid teens. There are no triggers for his symptoms such as temperature, eating, talking, etc. He states that he has these episodes with stress or forgetting his tegretol. He has been on tegretol for many years and can not recall when he started it. With questioning, he does get a severe migraine following these episodes with fatigue. He states that he has had 4-5 in the month of December. Prior EEG's and MRI's have been negative. No pain on palpation of the trigeminal nerve distribution. Does have blurred vision in the left eye with these episodes. Mother stated that pt was admitted at age 17 to OSH for seizures and no seizures were identified and was told at that time he had MS but has never been treated. OUTPATIENT MEDICATIONS rosuvastatin (CRESTOR) 40 mg tablet Take 1 tablet by mouth once daily. insulin lispro (ADMELOG SOLOSTAR U-100 INSULIN) 100 unit/mL Inject subcutaneously 18-20 units sc at breakfast, 18-20 units lunch, 18-20 units dinner, 12 units at bedtime, plus SS up to 100 units daily insulin glargine (LANTUS SOLOSTAR U-100 INSULIN) 100 unit/mL (3 mL) Inject subcutaneously 25 units AM and 25 units PM amLODIPine (NORVASC) 5 mg tablet Take 1 tablet by mouth once daily. carBAMazepine (TEGRETOL) 200 mg tablet Take 3 tablets by mouth twice daily. omeprazole (PRILOSEC) 20 mg capsule Take 1 capsule by mouth daily before breakfast. 1/2 hr before meal. ARIPiprazole (ABILIFY) 2 mg tablet Take 2 tablets by mouth once daily. atenolol (TENORMIN) 50 mg tablet Take 1 tablet by mouth twice daily. lisinopril (ZESTRIL, PRINIVIL) 20 mg tablet Take 1 tablet by mouth once daily. Blood-Glucose Meter (FREESTYLE LITE METER) monitoring kit 1 Each as needed. sildenafil (REVATIO) 20 mg tablet 2 to 5 tabs a day prn. fenofibrate nanocrystallized (TRICOR) 145 mg tablet Take 1 tablet by mouth once daily. sertraline (ZOLOFT) 100 mg tablet Take 1 tablet by mouth once daily. SYRINGE DISPOSABLE 3CC 3 mL syrg USE WITH TESTOSTERONE 1 ML INJECTIONS EVERY 2 WEEKS omega 9-hoe-mdj-fish oil 300-400-1,000 mg cap Take 1 capsule by mouth once daily. Multivitamin capsule Take 1 capsule by mouth once daily. alcohol swabs padm Use 8 swabs daily TO CHECK BLOOD SUGAR AND FOR INSULIN INJECTIONS blood sugar diagnostic (FREESTYLE LITE STRIPS) test strip TEST four times a day, IDDM, E11.65 Insulin Keene, Disposable, (PEN NEEDLES) 31 gauge x 1/4 ndle One needle per dose; 4 per day docosahexanoic acid/epa (FISH OIL ORAL) Take by mouth once daily. Lancets lancets TEST BLOOD SUGARS 4 TIMES DAILY. E10.9. Uses insulin. VITAMIN E, DL,TOCOPHERYL ACET, (VITAMIN E, DL, ACETATE,) 1,000 unit cap Take 1 capsule by mouth once daily. FERROUS SULFATE, DRIED (IRON, DRIED, ORAL) Take 1 tablet by mouth one time a week. Ascorbic Acid (VITAMIN C) 1,000 mg tablet Take 1 tablet by mouth once daily. Cholecalciferol, Vitamin D3, (VITAMIN D) 1,000 unit cap Take 1 capsule by mouth every other day cyanocobalamin (VITAMIN B-12) 500 mcg tab Take 2 tablets by mouth once daily iv contrast (will be provided with radiology test) MRI Brain Inject, intravenously, once for 1 dose.No IV access, insert saline lock prior to beginning of sedation, infusion, injection of imaging exam.Discontinue saline lock post exam. If Pt. has a central line or IVAD, may access for administration according to line specific nursing protocol.Once exam is complete flush line and de-access according to line specific nursing protocol in the MR contrast administration guidelines link midazolam (NAYZILAM) 5 mg/spray (0.1 mL) nasal spray Use 1 spray in one nostril as needed for seizures. May repeat dose in alternate nostril after 10 minutes based on response and tolerability. 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 Author Type: Physician Type: Progress Notes Filed: 12/10/2020 10:29 PM Note Text: [facility] EPILEPSY CLINIC NOTE - RETURN VISIT Chief complaint: seizures Last seen 03/20/[address] Peña. INTERVAL HISTORY He is a patient of Dr. Peña, followed for right hemisphere focal epilepsy with seizures since 17 years of age characterized by left face pain -> left arm and leg jerking lasting 2-6 hours. CBZ was increased from 600 BID to 800 BID 02/05/2020 due to seizures 01/13/2020 and 02/04/2020 (left face pulsating ) lasting 3-5 hours. At 03/20/2020 visit he was continued on CBZ 800 BID (per med list) and asked to return in 6 months. BMP was ordered for hyponatremia. History per patient today (12/10/2020): Four seizures in 2020: 08/2019, 01/13/2020, 02/04/2020 and 06/19/2020, triggered by missing doses; was not using pillbox. Always goes to [place] ED for seizures; given Dilaudid and something else. Each seizure lasts about 5 hours, left face and arm twitching. He remains aware, is able to talk. One seizure in 2020 so far: 11/14/2020, seen in [place] ED. After IV meds, seizure subsides within 15-20 minutes typically. History of colon cancer in 2014, s/p resection, has port. 12/03/2020 - Dr. Zhong reduced CBZ from 800 BID to 600 BID due to trough level. SEIZURE HISTORY (from 11/27/[address] Peña) Patient developed the first seizure at age 17 years. He reports that seizures begin with a pain in the left face, this is followed by jerking of the left arm and leg that can last 2-6 hours. He does not lose consciousness and he is able to follow verbal commands. Postictally his left arm and leg are very weak, has no good balance for at least a week until he recovers completely. No seizures between 2014 and October 2018. Frequency is every 2 years or so. Patient reports that each time he experiences a seizure he has to go to the ED to get IV medication. Per patient he gets morphine to stop the pain. Patient was always told that his diagnosis is trigeminal neuralgia, had multiple EEGs in the past and per patient they were normal. MRI brain was normal at [facility] in 2019. Current AED: CBZ 600 BID CBZ started at 16 years of age, 1st AED Did try CBZ ER in the past but it did not work, possibly due to colon resection. Past AEDs: LTG did not work He does not think he has tried LEV, but admits to poor memory. Has tried CLN 1 mg x 3 in the past to abort seizures, without effect PMH: HTN DM with neuropathy Pancreatitis 2002, related to heavy EtOH use Secondary male hypogonadism Cecum cancer Depression - Zoloft and Abilify prescribed by PCP HTN Social History: Lives with 78yo mother who also has health problems. They take care of each other. He does drive - no accidents since 2019 (deer jumped in front of the car, not seizure related). Has never had seizure-related accident; did have seizure while driving at 23yo and was able to drive the last 5 miles to the house. 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 EXAM Alert, oriented. Normal speech, language. EOMs intact. Decreased sensation left face and arm. No clear pronator drift. Normal FFMs. No dysmetria. Gait steady. No Romberg sign. DATA: Component Glucose BUN Creatinine Sodium Latest Ref Rng AND Units 74 - 99 mg/dL 9 - 24 mg/dL 0.73 - 1.22 mg/dL 136 - 144 mmol/L 08/04/2014 120 (H) 14 0.91 138 08/18/2014 09/04/2014 09/10/2014 09/12/2014 318 (H) 15 0.84 130 (L) 09/30/2014 10/10/2014 03/05/2015 335 (H) 13 0.78 131 (L) 06/10/2015 310 (H) 17 0.83 134 (L) 08/18/2015 352 (H) 21 0.98 136 12/18/2015 319 (H) 16 0.89 133 (L) 10/25/2016 299 (H) 17 0.88 134 (L) 12/25/2018 229 (H) 18 1.00 136 07/23/2019 09/09/2019 264 (H) 19 1.47 (H) 134 (L) 09/30/2019 349 (H) 17 1.22 129 (L) 02/03/2020 374 (H) 26 (H) 1.61 (H) 132 (L) 03/16/2020 306 (H) 23 1.05 126 (L) 05/06/2020 174 (H) 16 1.29 (H) 136 05/21/2020 09/03/2020 178 (H) 11 1.16 134 (L) 12/02/2020 334 (H) 27 (H) 1.68 (H) 127 (L) Component Carbamazepine Latest Ref Rng AND Units 4.0 - 12.0 ug/mL 12/08/2004 11:28 AM 10.2 05/13/2011 9:17 AM 1.6 (L) 06/20/2012 12:22 PM 9.0 01/18/2013 9:54 AM 8.8 07/18/2013 2:25 PM 9.1 2013 4:20 PM 6.0 (L) 10/24/2013 11:10 AM 6.0 (L) 11/01/2013 3:17 PM 7.3 (L) 11/12/2013 9:48 AM 6.1 (L) 11/18/2013 2:37 PM 5.5 (L) 12/05/2013 10:50 AM 6.3 (L) 01/06/2014 3:26 PM 5.2 (L) 02/24/2014 10:41 AM 6.5 (L) 07/09/2014 10:50 AM 8.3 08/18/2014 10:22 AM 10.1 09/04/2014 9:06 AM 7.6 (L) 09/10/2014 8:30 AM 6.4 (L) 09/30/2014 12:02 PM 5.4 (L) 10/10/2014 11:34 AM 8.4 12/18/2015 1:11 PM 5.8 (L) 07/23/2019 2:13 PM 8.8 09/30/2019 11:26 AM 11.1 02/03/2020 10:11 AM 10.8 05/06/2020 10:25 AM 12.9 (H) 05/21/2020 10:57 AM 11.1 12/02/2020 8:24 AM - trough 14.7 (H) [800 BID] Takes CBZ 10A (more content not included)...[facility] 06-03-2014 History of Past illness Narrative* Problem Noted Date Resolved Date Pain in joint, upper arm 06/03/2014 016 Lateral epicondylitis of elbow 05/29/2014 0 09/25/2015 Elbow pain 05/29/2014 09/25/2015 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 Sebaceous cyst 04/22/2011 09/25/2015 Cellulitis and abscess of trunk 06/02/2009 09/16/2009 Onychia and paronychia of toe 02/02/2007 Sprain of foot, unspecified site 01/23/2007 09/16/2009 Sebaceous cyst 08/31/2005 09/16/2009 documented as of this encounter (statuses as of 11/19/2021) [facility] History of Past illness Narrative* Problem Noted Date Resolved Date Pain in joint, upper arm 06/03/2014 016 Lateral epicondylitis of elbow 05/29/2014 0 09/25/2015 Elbow pain 05/29/2014 09/25/2015 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 Sebaceous cyst 04/22/2011 09/25/2015 Cellulitis and abscess of trunk 06/02/2009 09/16/2009 Onychia and paronychia of toe 02/02/2007 Sprain of foot, unspecified site 01/23/2007 09/16/2009 Sebaceous cyst 08/31/2005 09/16/2009 documented as of this encounter (statuses as of 11/19/2021) [facility] History of Past illness Narrative* Problem Noted Date Resolved Date Pain in joint, upper arm 06/03/2014 016 Lateral epicondylitis of elbow 05/29/2014 0 09/25/2015 Elbow pain 05/29/2014 09/25/2015 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 Sebaceous cyst 04/22/2011 09/25/2015 Cellulitis and abscess of trunk 06/02/2009 09/16/2009 Onychia and paronychia of toe 02/02/2007 Sprain of foot, unspecified site 01/23/2007 09/16/2009 Sebaceous cyst 08/31/2005 09/16/2009 documented as of this encounter (statuses as of 11/22/2021) [facility] History of Past illness Narrative* Problem Noted Date Resolved Date Pain in joint, upper arm 06/03/2014 016 Lateral epicondylitis of elbow 05/29/2014 0 09/25/2015 Elbow pain 05/29/2014 09/25/2015 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 Sebaceous cyst 04/22/2011 09/25/2015 Cellulitis and abscess of trunk 06/02/2009 09/16/2009 Onychia and paronychia of toe 02/02/2007 Sprain of foot, unspecified site 01/23/2007 09/16/2009 Sebaceous cyst 08/31/2005 09/16/2009 documented as of this encounter (statuses as of 11/24/2021) [facility] History of Past illness Narrative* Problem Noted Date Resolved Date Pain in joint, upper arm 06/03/2014 016 Lateral epicondylitis of elbow 05/29/2014 0 09/25/2015 Elbow pain 05/29/2014 09/25/2015 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 Sebaceous cyst 04/22/2011 09/25/2015 Cellulitis and abscess of trunk 06/02/2009 09/16/2009 Onychia and paronychia of toe 02/02/2007 Sprain of foot, unspecified site 01/23/2007 09/16/2009 Sebaceous cyst 08/31/2005 09/16/2009 documented as of this encounter (statuses as of 11/27/2021) [facility] History of Past illness Narrative* Problem Noted Date Resolved Date Pain in joint, upper arm 06/03/2014 016 Lateral epicondylitis of elbow 05/29/2014 0 09/25/2015 Elbow pain 05/29/2014 09/25/2015 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 Sebaceous cyst 04/22/2011 09/25/2015 Cellulitis and abscess of trunk 06/02/2009 09/16/2009 Onychia and paronychia of toe 02/02/2007 Sprain of foot, unspecified site 01/23/2007 09/16/2009 Sebaceous cyst 08/31/2005 09/16/2009 documented as of this encounter (statuses as of 11/27/2021) [facility] History of Past illness Narrative* Problem Noted Date Resolved Date Pain in joint, upper arm 06/03/2014 016 Lateral epicondylitis of elbow 05/29/2014 0 09/25/2015 Elbow pain 05/29/2014 09/25/2015 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 Sebaceous cyst 04/22/2011 09/25/2015 Cellulitis and abscess of trunk 06/02/2009 09/16/2009 Onychia and paronychia of toe 02/02/2007 Sprain of foot, unspecified site 01/23/2007 09/16/2009 Sebaceous cyst 08/31/2005 09/16/2009 documented as of this encounter (statuses as of 11/30/2021) [facility] History of Past illness Narrative* Problem Noted Date Resolved Date Pain in joint, upper arm 06/03/2014 016 Lateral epicondylitis of elbow 05/29/2014 0 09/25/2015 Elbow pain 05/29/2014 09/25/2015 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 Sebaceous cyst 04/22/2011 09/25/2015 Cellulitis and abscess of trunk 06/02/2009 09/16/2009 Onychia and paronychia of toe 02/02/2007 Sprain of foot, unspecified site 01/23/2007 09/16/2009 Sebaceous cyst 08/31/2005 09/16/2009 documented as of this encounter (statuses as of 12/01/2021) [facility] History of Past illness Narrative* Problem Noted Date Resolved Date Pain in joint, upper arm 06/03/2014 016 Lateral epicondylitis of elbow 05/29/2014 0 09/25/2015 Elbow pain 05/29/2014 09/25/2015 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 Sebaceous cyst 04/22/2011 09/25/2015 Cellulitis and abscess of trunk 06/02/2009 09/16/2009 Onychia and paronychia of toe 02/02/2007 Sprain of foot, unspecified site 01/23/2007 09/16/2009 Sebaceous cyst 08/31/2005 09/16/2009 documented as of this encounter (statuses as of 12/03/2021) [facility] History of Past illness Narrative* Problem Noted Date Resolved Date Pain in joint, upper arm 06/03/2014 016 Lateral epicondylitis of elbow 05/29/2014 0 09/25/2015 Elbow pain 05/29/2014 09/25/2015 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 Sebaceous cyst 04/22/2011 09/25/2015 Cellulitis and abscess of trunk 06/02/2009 09/16/2009 Onychia and paronychia of toe 02/02/2007 Sprain of foot, unspecified site 01/23/2007 09/16/2009 Sebaceous cyst 08/31/2005 09/16/2009 documented as of this encounter (statuses as of 12/14/2021) [facility] History of Past illness Narrative* Problem Noted Date Resolved Date Pain in joint, upper arm 06/03/2014 016 Lateral epicondylitis of elbow 05/29/2014 0 09/25/2015 Elbow pain 05/29/2014 09/25/2015 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 Sebaceous cyst 04/22/2011 09/25/2015 Cellulitis and abscess of trunk 06/02/2009 09/16/2009 Onychia and paronychia of toe 02/02/2007 Sprain of foot, unspecified site 01/23/2007 09/16/2009 Sebaceous cyst 08/31/2005 09/16/2009 documented as of this encounter (statuses as of 12/15/2021) [facility] History of Past illness Narrative* Problem Noted Date Resolved Date Pain in joint, upper arm 06/03/2014 016 Lateral epicondylitis of elbow 05/29/2014 0 09/25/2015 Elbow pain 05/29/2014 09/25/2015 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 Sebaceous cyst 04/22/2011 09/25/2015 Cellulitis and abscess of trunk 06/02/2009 09/16/2009 Onychia and paronychia of toe 02/02/2007 Sprain of foot, unspecified site 01/23/2007 09/16/2009 Sebaceous cyst 08/31/2005 09/16/2009 documented as of this encounter (statuses as of 12/24/2021) [facility] History of Past illness Narrative* Problem Noted Date Resolved Date Pain in joint, upper arm 06/03/2014 016 Lateral epicondylitis of elbow 05/29/2014 0 09/25/2015 Elbow pain 05/29/2014 09/25/2015 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 Sebaceous cyst 04/22/2011 09/25/2015 Cellulitis and abscess of trunk 06/02/2009 09/16/2009 Onychia and paronychia of toe 02/02/2007 Sprain of foot, unspecified site 01/23/2007 09/16/2009 Sebaceous cyst 08/31/2005 09/16/2009 documented as of this encounter (statuses as of 12/24/2021) [facility] History of Past illness Narrative* Problem Noted Date Resolved Date Pain in joint, upper arm 06/03/2014 016 Lateral epicondylitis of elbow 05/29/2014 0 09/25/2015 Elbow pain 05/29/2014 09/25/2015 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 Sebaceous cyst 04/22/2011 09/25/2015 Cellulitis and abscess of trunk 06/02/2009 09/16/2009 Onychia and paronychia of toe 02/02/2007 Sprain of foot, unspecified site 01/23/2007 09/16/2009 Sebaceous cyst 08/31/2005 09/16/2009 documented as of this encounter (statuses as of 01/06/2022) [facility] History of Past illness Narrative* Problem Noted Date Resolved Date Pain in joint, upper arm 06/03/2014 016 Lateral epicondylitis of elbow 05/29/2014 0 09/25/2015 Elbow pain 05/29/2014 09/25/2015 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 Sebaceous cyst 04/22/2011 09/25/2015 Cellulitis and abscess of trunk 06/02/2009 09/16/2009 Onychia and paronychia of toe 02/02/2007 Sprain of foot, unspecified site 01/23/2007 09/16/2009 Sebaceous cyst 08/31/2005 09/16/2009 documented as of this encounter (statuses as of 01/29/2022) [facility] History of Past illness Narrative* Problem Noted Date Resolved Date Pain in joint, upper arm 06/03/2014 016 Lateral epicondylitis of elbow 05/29/2014 0 09/25/2015 Elbow pain 05/29/2014 09/25/2015 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 Sebaceous cyst 04/22/2011 09/25/2015 Cellulitis and abscess of trunk 06/02/2009 09/16/2009 Onychia and paronychia of toe 02/02/2007 Sprain of foot, unspecified site 01/23/2007 09/16/2009 Sebaceous cyst 08/31/2005 09/16/2009 documented as of this encounter (statuses as of 01/29/2022) [facility] History of Past illness Narrative* Problem Noted Date Resolved Date Pain in joint, upper arm 06/03/2014 016 Lateral epicondylitis of elbow 05/29/2014 0 09/25/2015 Elbow pain 05/29/2014 09/25/2015 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 Sebaceous cyst 04/22/2011 09/25/2015 Cellulitis and abscess of trunk 06/02/2009 09/16/2009 Onychia and paronychia of toe 02/02/2007 Sprain of foot, unspecified site 01/23/2007 09/16/2009 Sebaceous cyst 08/31/2005 09/16/2009 documented as of this encounter (statuses as of 01/31/2022) [facility] History of Past illness Narrative* Problem Noted Date Resolved Date Pain in joint, upper arm 06/03/2014 016 Lateral epicondylitis of elbow 05/29/2014 0 09/25/2015 Elbow pain 05/29/2014 09/25/2015 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 Sebaceous cyst 04/22/2011 09/25/2015 Cellulitis and abscess of trunk 06/02/2009 09/16/2009 Onychia and paronychia of toe 02/02/2007 Sprain of foot, unspecified site 01/23/2007 09/16/2009 Sebaceous cyst 08/31/2005 09/16/2009 documented as of this encounter (statuses as of 02/04/2022) [facility] History of Past illness Narrative* Problem Noted Date Resolved Date Pain in joint, upper arm 06/03/2014 016 Lateral epicondylitis of elbow 05/29/2014 0 09/25/2015 Elbow pain 05/29/2014 09/25/2015 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 Sebaceous cyst 04/22/2011 09/25/2015 Cellulitis and abscess of trunk 06/02/2009 09/16/2009 Onychia and paronychia of toe 02/02/2007 Sprain of foot, unspecified site 01/23/2007 09/16/2009 Sebaceous cyst 08/31/2005 09/16/2009 documented as of this encounter (statuses as of 02/07/2022) [facility] History of Past illness Narrative* Problem Noted Date Resolved Date Pain in joint, upper arm 06/03/2014 016 Lateral epicondylitis of elbow 05/29/2014 0 09/25/2015 Elbow pain 05/29/2014 09/25/2015 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 Sebaceous cyst 04/22/2011 09/25/2015 Cellulitis and abscess of trunk 06/02/2009 09/16/2009 Onychia and paronychia of toe 02/02/2007 Sprain of foot, unspecified site 01/23/2007 09/16/2009 Sebaceous cyst 08/31/2005 09/16/2009 documented as of this encounter (statuses as of 02/09/2022) [facility] History of Past illness Narrative* Problem Noted Date Resolved Date Pain in joint, upper arm 06/03/2014 016 Lateral epicondylitis of elbow 05/29/2014 0 09/25/2015 Elbow pain 05/29/2014 09/25/2015 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 Sebaceous cyst 04/22/2011 09/25/2015 Cellulitis and abscess of trunk 06/02/2009 09/16/2009 Onychia and paronychia of toe 02/02/2007 Sprain of foot, unspecified site 01/23/2007 09/16/2009 Sebaceous cyst 08/31/2005 09/16/2009 documented as of this encounter (statuses as of 02/10/2022) [facility] of Past illness Narrative* Problem Noted Date Resolved Date Pain in joint, upper arm 06/03/2014 016 Lateral epicondylitis of elbow 05/29/2014 0 09/25/2015 Elbow pain 05/29/2014 09/25/2015 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 Sebaceous cyst 04/22/2011 09/25/2015 Cellulitis and abscess of trunk 06/02/2009 09/16/2009 Onychia and paronychia of toe 02/02/2007 Sprain of foot, unspecified site 01/23/2007 09/16/2009 Sebaceous cyst 08/31/2005 09/16/2009 documented as of this encounter (statuses as of 02/21/2022) [facility] History of Past illness Narrative* Problem Noted Date Resolved Date Pain in joint, upper arm 06/03/2014 016 Lateral epicondylitis of elbow 05/29/2014 0 09/25/2015 Elbow pain 05/29/2014 09/25/2015 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 Sebaceous cyst 04/22/2011 09/25/2015 Cellulitis and abscess of trunk 06/02/2009 09/16/2009 Onychia and paronychia of toe 02/02/2007 Sprain of foot, unspecified site 01/23/2007 09/16/2009 Sebaceous cyst 08/31/2005 09/16/2009 documented as of this encounter (statuses as of 03/30/2022) [facility] History of Past illness Narrative* Problem Noted Date Resolved Date Pain in joint, upper arm 06/03/2014 016 Lateral epicondylitis of elbow 05/29/2014 0 09/25/2015 Elbow pain 05/29/2014 09/25/2015 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 Sebaceous cyst 04/22/2011 09/25/2015 Cellulitis and abscess of trunk 06/02/2009 09/16/2009 Onychia and paronychia of toe 02/02/2007 Sprain of foot, unspecified site 01/23/2007 09/16/2009 Sebaceous cyst 08/31/2005 09/16/2009 documented as of this encounter (statuses as of 04/11/2022) [facility] History of Past illness Narrative* Problem Noted Date Resolved Date Pain in joint, upper arm 06/03/2014 016 Lateral epicondylitis of elbow 05/29/2014 0 09/25/2015 Elbow pain 05/29/2014 09/25/2015 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 Sebaceous cyst 04/22/2011 09/25/2015 Cellulitis and abscess of trunk 06/02/2009 09/16/2009 Onychia and paronychia of toe 02/02/2007 Sprain of foot, unspecified site 01/23/2007 09/16/2009 Sebaceous cyst 08/31/2005 09/16/2009 documented as of this encounter (statuses as of 05/04/2022) [facility] of Past illness Narrative* Problem Noted Date Resolved Date Pain in joint, upper arm 06/03/2014 016 Lateral epicondylitis of elbow 05/29/2014 0 09/25/2015 Elbow pain 05/29/2014 09/25/2015 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 Sebaceous cyst 04/22/2011 09/25/2015 Cellulitis and abscess of trunk 06/02/2009 09/16/2009 Onychia and paronychia of toe 02/02/2007 Sprain of foot, unspecified site 01/23/2007 09/16/2009 Sebaceous cyst 08/31/2005 09/16/2009 documented as of this encounter (statuses as of 05/04/2022) [facility] of Past illness Narrative* Problem Noted Date Resolved Date Pain in joint, upper arm 06/03/2014 016 Lateral epicondylitis of elbow 05/29/2014 0 09/25/2015 Elbow pain 05/29/2014 09/25/2015 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 Sebaceous cyst 04/22/2011 09/25/2015 Cellulitis and abscess of trunk 06/02/2009 09/16/2009 Onychia and paronychia of toe 02/02/2007 Sprain of foot, unspecified site 01/23/2007 09/16/2009 Sebaceous cyst 08/31/2005 09/16/2009 documented as of this encounter (statuses as of 06/02/2022) [facility] History of Past illness Narrative* Problem Noted Date Resolved Date Pain in joint, upper arm 06/03/2014 016 Lateral epicondylitis of elbow 05/29/2014 0 09/25/2015 Elbow pain 05/29/2014 09/25/2015 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 Sebaceous cyst 04/22/2011 09/25/2015 Cellulitis and abscess of trunk 06/02/2009 09/16/2009 Onychia and paronychia of toe 02/02/2007 Sprain of foot, unspecified site 01/23/2007 09/16/2009 Sebaceous cyst 08/31/2005 09/16/2009 documented as of this encounter (statuses as of 06/02/2022) [facility] History of Past illness Narrative* Problem Noted Date Resolved Date Pain in joint, upper arm 06/03/2014 016 Lateral epicondylitis of elbow 05/29/2014 0 09/25/2015 Elbow pain 05/29/2014 09/25/2015 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 Sebaceous cyst 04/22/2011 09/25/2015 Cellulitis and abscess of trunk 06/02/2009 09/16/2009 Onychia and paronychia of toe 02/02/2007 Sprain of foot, unspecified site 01/23/2007 09/16/2009 Sebaceous cyst 08/31/2005 09/16/2009 documented as of this encounter (statuses as of 06/03/2022) [facility] History of Past illness Narrative* Problem Noted Date Resolved Date Pain in joint, upper arm 06/03/2014 016 Lateral epicondylitis of elbow 05/29/2014 0 09/25/2015 Elbow pain 05/29/2014 09/25/2015 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 Sebaceous cyst 04/22/2011 09/25/2015 Cellulitis and abscess of trunk 06/02/2009 09/16/2009 Onychia and paronychia of toe 02/02/2007 Sprain of foot, unspecified site 01/23/2007 09/16/2009 Sebaceous cyst 08/31/2005 09/16/2009 documented as of this encounter (statuses as of 06/17/2022) [facility] History of Past illness Narrative* Problem Noted Date Resolved Date Pain in joint, upper arm 06/03/2014 016 Lateral epicondylitis of elbow 05/29/2014 0 09/25/2015 Elbow pain 05/29/2014 09/25/2015 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 Sebaceous cyst 04/22/2011 09/25/2015 Cellulitis and abscess of trunk 06/02/2009 09/16/2009 Onychia and paronychia of toe 02/02/2007 Sprain of foot, unspecified site 01/23/2007 09/16/2009 Sebaceous cyst 08/31/2005 09/16/2009 documented as of this encounter (statuses as of 07/08/2022) [facility] History of Past illness Narrative* Problem Noted Date Resolved Date Pain in joint, upper arm 06/03/2014 016 Lateral epicondylitis of elbow 05/29/2014 0 09/25/2015 Elbow pain 05/29/2014 09/25/2015 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 Sebaceous cyst 04/22/2011 09/25/2015 Cellulitis and abscess of trunk 06/02/2009 09/16/2009 Onychia and paronychia of toe 02/02/2007 Sprain of foot, unspecified site 01/23/2007 09/16/2009 Sebaceous cyst 08/31/2005 09/16/2009 documented as of this encounter (statuses as of 08/27/2022) [facility] History of Past illness Narrative* Problem Noted Date Resolved Date Pain in joint, upper arm 06/03/2014 016 Lateral epicondylitis of elbow 05/29/2014 0 09/25/2015 Elbow pain 05/29/2014 09/25/2015 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 Sebaceous cyst 04/22/2011 09/25/2015 Cellulitis and abscess of trunk 06/02/2009 09/16/2009 Onychia and paronychia of toe 02/02/2007 Sprain of foot, unspecified site 01/23/2007 09/16/2009 Sebaceous cyst 08/31/2005 09/16/2009 documented as of this encounter (statuses as of 09/21/2022) [facility] History of Past illness Narrative* Problem Noted Date Resolved Date Pain in joint, upper arm 06/03/2014 016 Lateral epicondylitis of elbow 05/29/2014 0 09/25/2015 Elbow pain 05/29/2014 09/25/2015 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 Sebaceous cyst 04/22/2011 09/25/2015 Cellulitis and abscess of trunk 06/02/2009 09/16/2009 Onychia and paronychia of toe 02/02/2007 Sprain of foot, unspecified site 01/23/2007 09/16/2009 Sebaceous cyst 08/31/2005 09/16/2009 documented as of this encounter (statuses as of 10/06/2022) [facility] History of Past illness Narrative* Problem Noted Date Resolved Date Pain in joint, upper arm 06/03/2014 016 Lateral epicondylitis of elbow 05/29/2014 0 09/25/2015 Elbow pain 05/29/2014 09/25/2015 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 Sebaceous cyst 04/22/2011 09/25/2015 Cellulitis and abscess of trunk 06/02/2009 09/16/2009 Onychia and paronychia of toe 02/02/2007 Sprain of foot, unspecified site 01/23/2007 09/16/2009 Sebaceous cyst 08/31/2005 09/16/2009 documented as of this encounter (statuses as of 11/28/2022) [facility] History of Past illness Narrative* Problem Noted Date Resolved Date Pain in joint, upper arm 06/03/2014 016 Lateral epicondylitis of elbow 05/29/2014 0 09/25/2015 Elbow pain 05/29/2014 09/25/2015 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 Sebaceous cyst 04/22/2011 09/25/2015 Cellulitis and abscess of trunk 06/02/2009 09/16/2009 Onychia and paronychia of toe 02/02/2007 Sprain of foot, unspecified site 01/23/2007 09/16/2009 Sebaceous cyst 08/31/2005 09/16/2009 documented as of this encounter (statuses as of 12/01/2022) [facility] History of Past illness Narrative* Problem Noted Date Resolved Date Pain in joint, upper arm 06/03/2014 016 Lateral epicondylitis of elbow 05/29/2014 0 09/25/2015 Elbow pain 05/29/2014 09/25/2015 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 Sebaceous cyst 04/22/2011 09/25/2015 Cellulitis and abscess of trunk 06/02/2009 09/16/2009 Onychia and paronychia of toe 02/02/2007 Sprain of foot, unspecified site 01/23/2007 09/16/2009 Sebaceous cyst 08/31/2005 09/16/2009 documented as of this encounter (statuses as of 12/02/2022) [facility] History of Past illness Narrative* Problem Noted Date Resolved Date Pain in joint, upper arm 06/03/2014 016 Lateral epicondylitis of elbow 05/29/2014 0 09/25/2015 Elbow pain 05/29/2014 09/25/2015 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 Sebaceous cyst 04/22/2011 09/25/2015 Cellulitis and abscess of trunk 06/02/2009 09/16/2009 Onychia and paronychia of toe 02/02/2007 Sprain of foot, unspecified site 01/23/2007 09/16/2009 Sebaceous cyst 08/31/2005 09/16/2009 documented as of this encounter (statuses as of 12/09/2022) [facility] History of Past illness Narrative* Problem Noted Date Resolved Date Pain in joint, upper arm 06/03/2014 016 Lateral epicondylitis of elbow 05/29/2014 0 09/25/2015 Elbow pain 05/29/2014 09/25/2015 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 Sebaceous cyst 04/22/2011 09/25/2015 Cellulitis and abscess of trunk 06/02/2009 09/16/2009 Onychia and paronychia of toe 02/02/2007 Sprain of foot, unspecified site 01/23/2007 09/16/2009 Sebaceous cyst 08/31/2005 09/16/2009 documented as of this encounter (statuses as of 12/29/2022) [facility] History of Past illness Narrative* Problem Noted Date Resolved Date Pain in joint, upper arm 06/03/2014 016 Lateral epicondylitis of elbow 05/29/2014 0 09/25/2015 Elbow pain 05/29/2014 09/25/2015 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 Sebaceous cyst 04/22/2011 09/25/2015 Cellulitis and abscess of trunk 06/02/2009 09/16/2009 Onychia and paronychia of toe 02/02/2007 Sprain of foot, unspecified site 01/23/2007 09/16/2009 Sebaceous cyst 08/31/2005 09/16/2009 documented as of this encounter (statuses as of 02/01/2023) [facility] History of Past illness Narrative* Problem Noted Date Resolved Date Pain in joint, upper arm 06/03/2014 016 Lateral epicondylitis of elbow 05/29/2014 0 09/25/2015 Elbow pain 05/29/2014 09/25/2015 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 Sebaceous cyst 04/22/2011 09/25/2015 Cellulitis and abscess of trunk 06/02/2009 09/16/2009 Onychia and paronychia of toe 02/02/2007 Sprain of foot, unspecified site 01/23/2007 09/16/2009 Sebaceous cyst 08/31/2005 09/16/2009 documented as of this encounter (statuses as of 02/09/2023) [facility] History of Past illness Narrative* Problem Noted Date Diagnosed Date Resolved Date Pain in joint, upper arm 06/03/2014 Lateral epicondylitis of elbow 05/29/2014 09/25/2015 Elbow pain 05/29/2014 09/25/2015 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 Sebaceous cyst 04/22/2011 09/25/2015 Cellulitis and abscess of trunk 06/02/2009 09/16/2009 Onychia and paronychia of toe 02/02/2007 09/16/2009 Sprain of foot, unspecified site 01/23/2007 09/16/2009 Sebaceous cyst 08/31/2005 09/16/2009 documented as of this encounter (statuses as of 05/30/2023) [facility] History of Past illness Narrative* Problem Noted Date Diagnosed Date Resolved Date Pain in joint, upper arm 06/03/2014 Lateral epicondylitis of elbow 05/29/2014 09/25/2015 Elbow pain 05/29/2014 09/25/2015 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 Sebaceous cyst 04/22/2011 09/25/2015 Cellulitis and abscess of trunk 06/02/2009 09/16/2009 Onychia and paronychia of toe 02/02/2007 09/16/2009 Sprain of foot, unspecified site 01/23/2007 09/16/2009 Sebaceous cyst 08/31/2005 09/16/2009 documented as of this encounter (statuses as of 06/23/2023) [facility] Diagnosis Essential hypertension- Primary Unspecified essential hypertension [facility] Diagnosis Hyperkalemia- Primary Hyperpotassemia Primary hypertension Unspecified essential hypertension Hyponatremia Hyposmolality and/or hyponatremia 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, not stated as uncontrolled Anemia, unspecified type Stage 3 chronic kidney disease, unspecified whether stage 3a or 3b CKD (HCC) 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 Seizure disorder (HCC) Unspecified epilepsy without mention of intractable epilepsy Mixed hyperlipidemia Essential hypertension Unspecified essential hypertension [facility] Anemia, unspecified type- Primary Renal insufficiency Unspecified disorder of kidney and ureter [facility] Diagnosis Edema of left lower leg- Primary Family history of DVT Family history of other cardiovascular diseases Anemia, unspecified type Stage 3a chronic kidney disease (HCC) Hyperkalemia Hyperpotassemia 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 Essential hypertension Unspecified essential hypertension 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, not stated as uncontrolled Pain of left lower extremity Primary hypertension Unspecified essential hypertension [facility] Diagnosis Essential hypertension Unspecified essential hypertension [facility] Diagnosis Acute renal disease- Primary Unspecified disorder of kidney and ureter [facility] Diagnosis Moderate episode of recurrent major depressive disorder (HCC) [facility] Diagnosis Type 1 diabetes mellitus with diabetic polyneuropathy (HCC)- Primary Type I (juvenile type) diabetes mellitus with neurological manifestations, not stated as uncontrolled 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, limited to breakdown of skin (HCC) Onychomycosis Dermatophytosis of nail Pain in toe of left foot Pain in limb Pain in toe of right foot Pain in limb Open nondisplaced fracture of proximal phalanx of lesser toe of left foot, initial encounter [facility] Diagnosis Osteomyelitis of toe (HCC) Unspecified osteomyelitis, ankle and foot [facility] Diagnosis 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, limited to breakdown of skin (HCC)- Primary [facility] Diagnosis Skin ulcer, limited to breakdown of skin (HCC)- Primary [facility]* Diagnosis 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, with long-term current use of insulin (HCC) [facility] Diagnosis OPENED IN ERROR- Primary To allow closing an encounter opened in error (used in SmartSet) [facility] Diagnosis 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, limited to breakdown of skin (HCC)- Primary Closed nondisplaced fracture of proximal phalanx of lesser toe of left foot with routine healing, subsequent encounter [facility] Diagnosis Essential hypertension- Primary Unspecified essential hypertension Moderate episode of recurrent major depressive disorder (HCC) Type 2 diabetes mellitus with stage 3a chronic kidney disease, with long-term current use of insulin (HCC) 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 Seizure disorder (HCC) Unspecified epilepsy without mention of intractable epilepsy Benign paroxysmal positional vertigo, unspecified laterality Closed nondisplaced fracture of phalanx of toe with routine healing, unspecified laterality, unspecified toe, subsequent encounter Anemia, unspecified type [facility] Diagnosis Essential hypertension- Primary Unspecified essential hypertension [facility] Diagnosis Essential hypertension Unspecified essential hypertension Primary hypertension Unspecified essential hypertension [facility] Diagnosis Essential hypertension- Primary Unspecified essential hypertension [facility] Diagnosis Hypertension due to endocrine disorder Moderate episode of recurrent major depressive disorder (HCC) Recurrent seizures (HCC) Other forms of epilepsy and recurrent seizures without mention of intractable epilepsy [facility] Diagnosis Type 1 diabetes mellitus with stage 3 chronic kidney disease, unspecified whether stage 3a or 3b CKD (HCC) 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, not stated as uncontrolled Hypogonadism in male Mixed hyperlipidemia Essential hypertension Unspecified essential hypertension Class 1 obesity with serious comorbidity and body mass index (BMI) of 33.0 to 33.9 in adult, unspecified obesity type [facility] Diagnosis URI, acute- Primary Acute upper respiratory infections of unspecified site documented in this encounter [facility]* Diagnosis Type 1 diabetes mellitus with stage 3 chronic kidney disease, unspecified whether stage 3a or 3b CKD (HCC) 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, not stated as uncontrolled Hypogonadism in male Mixed hyperlipidemia Essential hypertension Unspecified essential hypertension Class 1 obesity with serious comorbidity and body mass index (BMI) of 33.0 to 33.9 in adult, unspecified obesity type Encounter for screening for malignant neoplasm of prostate Special screening for malignant neoplasm of prostate [facility] Diagnosis Seizure disorder (HCC)- Primary Unspecified epilepsy without mention of intractable epilepsy Hypertension due to endocrine disorder Moderate episode of recurrent major depressive disorder (HCC) Mixed hyperlipidemia Type 1 diabetes mellitus with stage 3 chronic kidney disease, unspecified whether stage 3a or 3b CKD (HCC) 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) Type I (juvenile type) diabetes mellitus with renal manifestations, not stated as uncontrolled Trigeminal neuralgia Essential hypertension Unspecified essential hypertension Stage 3a chronic kidney disease (HCC) Renal cyst 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 Anemia, unspecified type Need for vaccination Need for prophylactic vaccination and inoculation against unspecified single disease [facility] Diagnosis Gastrointestinal hemorrhage, unspecified gastrointestinal hemorrhage type- Primary Seizure disorder (HCC) Unspecified epilepsy without mention of intractable epilepsy Essential hypertension Unspecified essential hypertension Mixed hyperlipidemia Stage 3a chronic kidney disease (HCC) Bleeding esophageal varices, unspecified esophageal varices type (HCC) Hepatomegaly Decreased thyroid stimulating hormone (TSH) level Iron deficiency anemia due to chronic blood loss Iron deficiency anemia secondary to blood loss (chronic) [facility] Diagnosis Gastrointestinal hemorrhage, unspecified gastrointestinal hemorrhage type- Primary Hypertension due to endocrine disorder Mixed hyperlipidemia Seizure disorder (HCC) Unspecified epilepsy without mention of intractable epilepsy Stage 3a chronic kidney disease (HCC) documented in this encounter [facility] note* Diagnosis Polyneuropathy- Primary Unspecified hereditary and idiopathic peripheral neuropathy Moderate episode of recurrent major depressive disorder (HCC) Stage 3a chronic kidney disease (HCC) Essential hypertension Unspecified essential hypertension documented in this encounter [facility] note* Diagnosis Stage 3a chronic kidney disease (HCC) documented in this encounter [facility] for referral (narrative)* Outpatient Procedure (Routine) - Authorized Specialty Diagnoses / Procedures Referred By Contac t Referred To Contact [facility] Diagnoses Hyperkalemia Primary hypertension Procedures US RENAL ARTERY UNL VAS LAB DUP-SCAN ARTL SHARMIN ABDL/PEL/SCROT&/RPR ORGN LMT Dutch Zhong MD [address] [place] [address] [facility] [place] [address] [place] [address] Referral ID Status Reason Start Date Expiration Date Visits Requested Visits Authorized [id number] Authorized Auto-Generat ed Referral 11/24/2021 11/24/2022 1 1 [facility] for referral (narrative)* Diagnostic Procedure Only (Urgent) - Closed Specialty Diagnoses / Procedures Referred By Contac t Referred To Contact XR IMAGING Diagnoses Osteomyelitis of toe (HCC) Procedures XR FOOT GENERAL 3V AP/LAT/OBL LEFT RADEX FOOT COMPLETE MINIMUM 3 VIEWS Roberto Andersno [address] [place] [address] Xr Imaging Referral ID Status Reason Start Date Expiration Date V isits Requested Visits Authorized [id number] Closed Auto-Generate d Referral 01/28/2022 02/27/2023 1 1 [facility] for referral (narrative)* Diagnostic Procedure Only (Routine) - Closed Specialty Diagnoses / Procedures Referred By Contac t Referred To Contact XR IMAGING Diagnoses 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, limited to breakdown of skin (HCC) Closed nondisplaced fracture of proximal phalanx of lesser toe of left foot with routine healing, subsequent encounter Procedures XR TOE AP/LAT/OBL LEFT RADEX TOE MINIMUM 2 VIEWS Roberto Anderson [address] [place] [address] Xr Imaging Referral ID Status Reason Start Date Expiration Date V isits Requested Visits Authorized [id number] Closed Auto-Generate d Referral 02/09/2022 03/11/2023 1 1 [facility] for visit Narrative* Diagnostic Procedure Only (Urgent) - Closed Specialty Diagnoses / Procedures Referred By Kimmy garcía Referred To Contact XR IMAGING Diagnoses Osteomyelitis of toe (HCC) Procedures XR FOOT GENERAL 3V AP/LAT/OBL LEFT RADEX FOOT COMPLETE MINIMUM 3 VIEWS Roberto Anderson [address] [place] [address] Xr Imaging Referral ID Status Reason Start Date Expiration Date V isits Requested Visits Authorized [id number] Closed Auto-Generate d Referral 01/28/2022 02/27/2023 1 1 [facility] Summary Purpose Family History No Family History Records FoundNo Family History Records FoundNo Family History Records Found Advance Directives No Advanced Directives Records FoundDocuments on File Type Date Recorded Patient Executive Director Of Nursing Expl anation Advance Directive(s) Advance Directive(s) 05/03/2019 7:09 AM Documents on File Type Date Recorded Patient Executive Director Of Nursing Expl anation Advance Directive(s) Advance Directive(s) 05/03/2019 7:09 AM Documents on File Type Date Recorded Patient Executive Director Of Nursing Expl anation Advance Directive(s) Advance Directive(s) 02/04/2022 1:15 PM Advance Directive(s) 05/03/2019 7:09 AM Documents on File Type Date Recorded Patient Executive Director Of Nursing Expl anation Advance Directive(s) Advance Directive(s) 02/04/2022 1:15 PM Advance Directive(s) 05/03/2019 7:09 AM Reason for Referral Specialty Diagnoses / Procedures Referred By Kimmy garcía Referred To Contact Diagnoses Open nondisplaced fracture of proximal phalanx of lesser toe of left foot, initial encounter Roberto Anderson [address] [place] [address] Referral ID Status Reason Start Date Expiration Date Visits Re quested Visits Authorized [id number] Closed 1 1 Specialty Diagnoses / Procedures Referred By Contac t Referred To Contact XR IMAGING Diagnoses Osteomyelitis of toe (HCC) Procedures XR FOOT GENERAL 3V AP/LAT/OBL LEFT RADEX FOOT COMPLETE MINIMUM 3 VIEWS Roberto Anderson [address] [place] [address] Xr Imaging Referral ID Status Reason Start Date Expiration Date V isits Requested Visits Authorized [id number] Closed Auto-Generate d Referral 01/28/2022 02/27/2023 1 1 Specialty Diagnoses / Procedures Referred By Contac t Referred To Contact Diagnoses 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 [address] Referral ID Status Reason Start Date Expiration Date Visits Re quested Visits Authorized [id number] Closed 1 1 Additional Source Comments (unrecognized sect ion and content) No Status Records FoundNo Status Records FoundNo Status Records Found INFORMATION SOURCE (unrecogn ized section and content) DATE CREATED AUTHOR AUTHOR'S ORGANLIZETH ATION 02/08/2022 [facility] DATE CREATED AUTHOR AUTHOR'S ORGANIZ ATION 07/01/2023 [facility] Source Comments (unrecognize d section and content) In the event this informatio n is protected by the Federal Confidentiality of Alcohol and Drug Abuse Patient Records regulations: The Federal rules restrict any use of the information to criminally investigate or prosecute any alcohol or drug abuse patient.[facility] event this information is protected by the Federal Confidentiality of Alcohol and Drug Abuse Patient Records regulations: The Federal rules restrict any use of the information to criminally investigate or prosecute any alcohol or drug abuse patient.[facility] the event this information is protected by the Federal Confidentiality of Alcohol and Drug Abuse Patient Records regulations: The Federal rules restrict any use of the information to criminally investigate or prosecute any alcohol or drug abuse patient.[facility] the event this information is protected by the Federal Confidentiality of Alcohol and Drug Abuse Patient Records regulations: The Federal rules restrict any use of the information to criminally investigate or prosecute any alcohol or drug abuse patient.[facility] the event this information is protected by the Federal Confidentiality of Alcohol and Drug Abuse Patient Records regulations: The Federal rules restrict any use of the information to criminally investigate or prosecute any alcohol or drug abuse patient.[facility] the event this information is protected by the Federal Confidentiality of Alcohol and Drug Abuse Patient Records regulations: The Federal rules restrict any use of the information to criminally investigate or prosecute any alcohol or drug abuse patient.[facility] the event this information is protected by the Federal Confidentiality of Alcohol and Drug Abuse Patient Records regulations: The Federal rules restrict any use of the information to criminally investigate or prosecute any alcohol or drug abuse patient.[facility] the event this information is protected by the Federal Confidentiality of Alcohol and Drug Abuse Patient Records regulations: The Federal rules restrict any use of the information to criminally investigate or prosecute any alcohol or drug abuse patient.[facility] the event this information is protected by the Federal Confidentiality of Alcohol and Drug Abuse Patient Records regulations: The Federal rules restrict any use of the information to criminally investigate or prosecute any alcohol or drug abuse patient.[facility] the event this information is protected by the Federal Confidentiality of Alcohol and Drug Abuse Patient Records regulations: The Federal rules restrict any use of the information to criminally investigate or prosecute any alcohol or drug abuse patient.[facility] the event this information is protected by the Federal Confidentiality of Alcohol and Drug Abuse Patient Records regulations: The Federal rules restrict any use of the information to criminally investigate or prosecute any alcohol or drug abuse patient.[facility] the event this information is protected by the Federal Confidentiality of Alcohol and Drug Abuse Patient Records regulations: The Federal rules restrict any use of the information to criminally investigate or prosecute any alcohol or drug abuse patient.[facility] HospitalIn the event this information is protected by the Federal Confidentiality of Alcohol and Drug Abuse Patient Records regulations: The Federal rules restrict any use of the information to criminally investigate or prosecute any alcohol or drug abuse patient.[facility] HospitalIn the event this information is protected by the Federal Confidentiality of Alcohol and Drug Abuse Patient Records regulations: The Federal rules restrict any use of the information to criminally investigate or prosecute any alcohol or drug abuse patient.[facility] HospitalIn the event this information is protected by the Federal Confidentiality of Alcohol and Drug Abuse Patient Records regulations: The Federal rules restrict any use of the information to criminally investigate or prosecute any alcohol or drug abuse patient.[facility] HospitalIn the event this information is protected by the Federal Confidentiality of Alcohol and Drug Abuse Patient Records regulations: The Federal rules restrict any use of the information to criminally investigate or prosecute any alcohol or drug abuse patient.[facility] HospitalIn the event this information is protected by the Federal Confidentiality of Alcohol and Drug Abuse Patient Records regulations: The Federal rules restrict any use of the information to criminally investigate or prosecute any alcohol or drug abuse patient.[facility] HospitalIn the event this information is protected by the Federal Confidentiality of Alcohol and Drug Abuse Patient Records regulations: The Federal rules restrict any use of the information to criminally investigate or prosecute any alcohol or drug abuse patient.[facility] HospitalIn the event this information is protected by the Federal Confidentiality of Alcohol and Drug Abuse Patient Records regulations: The Federal rules restrict any use of the information to criminally investigate or prosecute any alcohol or drug abuse patient.[facility] HospitalIn the event this information is protected by the Federal Confidentiality of Alcohol and Drug Abuse Patient Records regulations: The Federal rules restrict any use of the information to criminally investigate or prosecute any alcohol or drug abuse patient.[facility] HospitalIn the event this information is protected by the Federal Confidentiality of Alcohol and Drug Abuse Patient Records regulations: The Federal rules restrict any use of the information to criminally investigate or prosecute any alcohol or drug abuse patient.[facility] HospitalIn the event this information is protected by the Federal Confidentiality of Alcohol and Drug Abuse Patient Records regulations: The Federal rules restrict any use of the information to criminally investigate or prosecute any alcohol or drug abuse patient.[facility] HospitalIn the event this information is protected by the Federal Confidentiality of Alcohol and Drug Abuse Patient Records regulations: The Federal rules restrict any use of the information to criminally investigate or prosecute any alcohol or drug abuse patient.[facility] HospitalIn the event this information is protected by the Federal Confidentiality of Alcohol and Drug Abuse Patient Records regulations: The Federal rules restrict any use of the information to criminally investigate or prosecute any alcohol or drug abuse patient.[facility] HospitalIn the event this information is protected by the Federal Confidentiality of Alcohol and Drug Abuse Patient Records regulations: The Federal rules restrict any use of the information to criminally investigate or prosecute any alcohol or drug abuse patient.[facility] HospitalIn the event this information is protected by the Federal Confidentiality of Alcohol and Drug Abuse Patient Records regulations: The Federal rules restrict any use of the information to criminally investigate or prosecute any alcohol or drug abuse patient.[facility] HospitalIn the event this information is protected by the Federal Confidentiality of Alcohol and Drug Abuse Patient Records regulations: The Federal rules restrict any use of the information to criminally investigate or prosecute any alcohol or drug abuse patient.[facility] HospitalIn the event this information is protected by the Federal Confidentiality of Alcohol and Drug Abuse Patient Records regulations: The Federal rules restrict any use of the information to criminally investigate or prosecute any alcohol or drug abuse patient.[facility] HospitalIn the event this information is protected by the Federal Confidentiality of Alcohol and Drug Abuse Patient Records regulations: The Federal rules restrict any use of the information to criminally investigate or prosecute any alcohol or drug abuse patient.[facility] HospitalIn the event this information is protected by the Federal Confidentiality of Alcohol and Drug Abuse Patient Records regulations: The Federal rules restrict any use of the information to criminally investigate or prosecute any alcohol or drug abuse patient.[facility] HospitalIn the event this information is protected by the Federal Confidentiality of Alcohol and Drug Abuse Patient Records regulations: The Federal rules restrict any use of the information to criminally investigate or prosecute any alcohol or drug abuse patient.[facility] HospitalIn the event this information is protected by the Federal Confidentiality of Alcohol and Drug Abuse Patient Records regulations: The Federal rules restrict any use of the information to criminally investigate or prosecute any alcohol or drug abuse patient.[facility] HospitalIn the event this information is protected by the Federal Confidentiality of Alcohol and Drug Abuse Patient Records regulations: The Federal rules restrict any use of the information to criminally investigate or prosecute any alcohol or drug abuse patient.[facility] HospitalIn the event this information is protected by the Federal Confidentiality of Alcohol and Drug Abuse Patient Records regulations: The Federal rules restrict any use of the information to criminally investigate or prosecute any alcohol or drug abuse patient.[facility] HospitalIn the event this information is protected by the Federal Confidentiality of Alcohol and Drug Abuse Patient Records regulations: The Federal rules restrict any use of the information to criminally investigate or prosecute any alcohol or drug abuse patient.[facility] HospitalIn the event this information is protected by the Federal Confidentiality of Alcohol and Drug Abuse Patient Records regulations: The Federal rules restrict any use of the information to criminally investigate or prosecute any alcohol or drug abuse patient.[facility] HospitalIn the event this information is protected by the Federal Confidentiality of Alcohol and Drug Abuse Patient Records regulations: The Federal rules restrict any use of the information to criminally investigate or prosecute any alcohol or drug abuse patient.[facility] HospitalIn the event this information is protected by the Federal Confidentiality of Alcohol and Drug Abuse Patient Records regulations: The Federal rules restrict any use of the information to criminally investigate or prosecute any alcohol or drug abuse patient.[facility] HospitalIn the event this information is protected by the Federal Confidentiality of Alcohol and Drug Abuse Patient Records regulations: The Federal rules restrict any use of the information to criminally investigate or prosecute any alcohol or drug abuse patient.[facility] HospitalIn the event this information is protected by the Federal Confidentiality of Alcohol and Drug Abuse Patient Records regulations: The Federal rules restrict any use of the information to criminally investigate or prosecute any alcohol or drug abuse patient.[facility] HospitalIn the event this information is protected by the Federal Confidentiality of Alcohol and Drug Abuse Patient Records regulations: The Federal rules restrict any use of the information to criminally investigate or prosecute any alcohol or drug abuse patient.[facility] HospitalIn the event this information is protected by the Federal Confidentiality of Alcohol and Drug Abuse Patient Records regulations: The Federal rules restrict any use of the information to criminally investigate or prosecute any alcohol or drug abuse patient.[facility] HospitalIn the event this information is protected by the Federal Confidentiality of Alcohol and Drug Abuse Patient Records regulations: The Federal rules restrict any use of the information to criminally investigate or prosecute any alcohol or drug abuse patient.[facility] HospitalIn the event this information is protected by the Federal Confidentiality of Alcohol and Drug Abuse Patient Records regulations: The Federal rules restrict any use of the information to criminally investigate or prosecute any alcohol or drug abuse patient.[facility] HospitalIn the event this information is protected by the Federal Confidentiality of Alcohol and Drug Abuse Patient Records regulations: The Federal rules restrict any use of the information to criminally investigate or prosecute any alcohol or drug abuse patient.[facility] HospitalIn the event this information is protected by the Federal Confidentiality of Alcohol and Drug Abuse Patient Records regulations: The Federal rules restrict any use of the information to criminally investigate or prosecute any alcohol or drug abuse patient.[facility] Reason for Visit (unrecogniz ed section and content) Reason Comments Results Reason Comments ER F/U Reason Comments ED Follow-up Reason Comments Edema left leg, knee to fo ot, since last night Reason Comments Patient Update Reason Comments Refill Request Reason Onset Date Comments Refill Request 01/06/2022 Out of medicatio n Reason Comments Follow Up Diabetic Foot Care New Fracture Reason Comments Physician To Physician Consult Reason Comments Diabetic Eye Exam [facility] Reason Comments Bradycardia Reason Comments Insulin Dependent Diabetes Mellitus Reason Comments Follow Up Ulcer Reason Comments Results Patient Update Reason Comments Follow Up Reason Onset Date Comments Refill Request 04/08/2022 Reason Onset Date Comments Refill Request 06/03/2022 Reason Comments Insulin Dependent Diabetes Mellitus Reason Onset Date Comments Refill Request 07/08/2022 Reason Comments Cough Congestion x7 days Reason Comments Hypertension Reason Onset Date Comments Transition Of Care 11/28/2022 Reason Comments Transition Of Care Hospital F/U Patient reports he w ill be getting hemoglobin injection every Monday until otherwise decided. Reason Comments Hypertension 4wk follow up Reason Comments Diabetic Eye Exam Report Family [facility] Reason Onset Date Comments Refill Request 05/29/2023 Care Teams (unrecognized sec tion and content) Acid Crane Operator Relationship Specialty Start Date End Date Dutch Zhong MD [address] [place], [place] [id number] PCP - General Family Practice 01/17/19 Jeancarlos Wolff MD [address] [facility] [place] [address] Gastroenterology 09/04/14 Acid Crane Operator Relationship Specialty Start Date End Date Dutch Zhong MD [address] [place], [place] [id number] PCP - General Family Practice 01/17/19 Jeancarlos Wolff MD [address] [facility] [place] [address] Gastroenterology 09/04/14 Acid Crane Operator Relationship Specialty Start Date End Date Dutch Zhong MD [address] [facility] [place] [address] PCP - General Family Practice 01/17/19 Jeancarlos Wolff MD [address] [facility] [place] [address] Gastroenterology 09/04/14 Acid Crane Operator Relationship Specialty Start Date End Date Dutch Zhong MD [address] [place] [place] [address] PCP - General Family Practice 01/17/19 Jeancarlos Wolff MD [address] [facility] [place] [address] Gastroenterology 09/04/14 Acid Crane Operator Relationship Specialty Start Date End Date Dutch Zhong MD [address] [place] [place] [address] PCP - General Family Practice 01/17/19 Jeancarlos Wolff MD [address] [place] [address] Gastroenterology 09/04/14 Acid Crane Operator Relationship Specialty Start Date End Date Dutch Zhong MD [address] [facility] [place] [address] PCP - General Family Practice 01/17/19 Jeancarlos Wolff MD [address] [facility] [place] [address] Gastroenterology 09/04/14 Acid Crane Operator Relationship Specialty Start Date End Date Dutch Zhong MD [address] [facility] [place] [address] PCP - General Family Practice 01/17/19 Jeancarlos Wolff MD [address] [facility] [place] [address] Gastroenterology 09/04/14 Acid Crane Operator Relationship Specialty Start Date End Date Dutch Zhong MD [address] [facility] [place] [address] PCP - General Family Practice 01/17/19 Jeancarlos Wolff MD [address] [place] [address] Gastroenterology 09/04/14 Acid Crane Operator Relationship Specialty Start Date End Date Dutch Zhong MD [address] [place] [address] PCP - General Family Practice 01/17/19 Jeancarlos Wolff MD [address] [place] [address] Gastroenterology 09/04/14 Acid Crane Operator Relationship Specialty Start Date End Date Dutch Zhong MD [address] [place] [address] PCP - General Family Practice 01/17/19 Jeancarlos Wolff MD [address] [place] [address] Gastroenterology 09/04/14 Acid Crane Operator Relationship Specialty Start Date End Date Dutch Zhong MD [address] [place] [address] PCP - General Family Practice 01/17/19 Jeancarlos Wolff MD [address] [place] [address] Gastroenterology 09/04/14 Acid Crane Operator Relationship Specialty Start Date End Date Dutch Zhong MD [address] [facility] [address] PCP - General Family Practice 01/17/19 Jeancarlos Wolff MD [address] [place] [address] Gastroenterology 09/04/14 Acid Crane Operator Relationship Specialty Start Date End Date Dutch Zhong MD [address] [place] [address] PCP - General Family Practice 01/17/19 Jeancarlos Wolff MD [address] [place] [address] Gastroenterology 09/04/14 Acid Crane Operator Relationship Specialty Start Date End Date Dutch Zhong MD [address] [place] [address] PCP - General Family Practice 01/17/19 Jeancarlos Wolff MD [address] [place] [address] Gastroenterology 09/04/14 Acid Crane Operator Relationship Specialty Start Date End Date Dutch Zhong MD [address] [facility] [place] [address] PCP - General Family Practice 01/17/19 Jeancarlos Wolff MD [address] [place] [address] Gastroenterology 09/04/14 Acid Crane Operator Relationship Specialty Start Date End Date Dutch Zhong MD [address] [place] [place] [address] PCP - General Family Medicine 01/17/19 Jeancarlos Wolff MD [address] [facility] [place] [address] Gastroenterology 09/04/14 Acid Crane Operator Relationship Specialty Start Date End Date Dutch Zhong MD [address] [facility] [place] [address] PCP - General Family Medicine 01/17/19 Jeancarlos Wolff MD [address] [place] [address] Gastroenterology 09/04/14 Acid Crane Operator Relationship Specialty Start Date End Date Dutch Zhong MD [address] [facility] [place] [address] PCP - General Family Medicine 01/17/19 Jeancarlos Wolff MD [address] [place] [address] Gastroenterology 09/04/14 Acid Crane Operator Relationship Specialty Start Date End Date Dutch Zhong MD [address] [place] [address] PCP - General Family Medicine 01/17/19 Jeancarlos Wolff MD [address] [place] [address] Gastroenterology 09/04/14 Acid Crane Operator Relationship Specialty Start Date End Date Dutch Zhong MD [address] [place] [address] PCP - General Family Medicine 01/17/19 Jeancarlos Wolff MD [address] [place] [address] Gastroenterology 09/04/14 Acid Crane Operator Relationship Specialty Start Date End Date Dutch Zhong MD [address] [place] [address] PCP - General Family Medicine 01/17/19 Jeancarlos Wolff MD [address] [place] [address] Gastroenterology 09/04/14 Acid Crane Operator Relationship Specialty Start Date End Date Asherton, Dutch J, MD [address] [facility] [place] [address] PCP - General Family Medicine 01/17/19 Jeancarlos Wolff MD [address] [place] [address] Gastroenterology 09/04/14 Acid Crane Operator Relationship Specialty Start Date End Date Dutch Zhong MD [address] [facility] [address] PCP - General Family Medicine 01/17/19 Jeancarlos Wolff MD [address] [facility] [place] [address] Gastroenterology 09/04/14 Acid Crane Operator Relationship Specialty Start Date End Date Dutch Zhong MD [address] [place] [address] PCP - General Family Medicine 01/17/19 Jeancarlos Wolff MD [address] [place] [address] Gastroenterology 09/04/14 Acid Crane Operator Relationship Specialty Start Date End Date Dutch Zhong MD [address] [place] [address] PCP - General Family Medicine 01/17/19 Jeancarlos Wolff MD [address] [facility] [place] [address] Gastroenterology 09/04/14 Acid Crane Operator Relationship Specialty Start Date End Date Dutch Zhong MD [address] [place] [address] PCP - General Family Medicine 01/17/19 Jeancarlos Wolff MD [address] [place] [address] Gastroenterology 09/04/14 Acid Crane Operator Relationship Specialty Start Date End Date Dutch Zhong MD [address] [place] [address] PCP - General Family Medicine 01/17/19 Jeancarlos Wolff MD [address] [facility] [place] [address] Gastroenterology 09/04/14 Acid Crane Operator Relationship Specialty Start Date End Date Dutch Zhong MD [address] [place] [address] PCP - General Family Medicine 01/17/19 Jeancarlos Wloff MD [address] [facility] [place] [address] Gastroenterology 09/04/14 Acid Crane Operator Relationship Specialty Start Date End Date Dutch Zhong MD [address] [place] [address] PCP - General Family Medicine 01/17/19 Jeancarlos Wolff MD [address] [facility] [place] [address] Gastroenterology 09/04/14 Acid Crane Operator Relationship Specialty Start Date End Date Dutch Zhong MD [address] [place] [address] PCP - General Family Medicine 01/17/19 Jeancarlos Wolff MD [address] [place] [address] Gastroenterology 09/04/14 Acid Crane Operator Relationship Specialty Start Date End Date Dutch Zhong MD [address] [place] [address] PCP - General Family Medicine 01/17/19 Jeancarlos Wolff MD [address] [place] [address] Gastroenterology 09/04/14 FOR RECORDS PERTAINING TO PATIENTS WHO ARE OR HAVE BEEN ENROLLED IN A CHEMICAL DEPENDENCY/SUBSTANCEABUSE PROGRAM, SOME INFORMATION MAY BE OMITTED. This clinical summary was aggregated from multiple sources. Caution should be exercised in using it in the provision of clinical care. This summary normalizes information from multiple sources, and as a consequence, information in this document may materially change the coding, format and clinical context of patient data. In addition, data may be omitted in some cases. CLINICAL DECISIONS SHOULD BE BASED ON THE PRIMARY CLINICAL RECORDS. [employer] provides no warranty or guarantee of the accuracy or completeness of information in this document.
[2023-10-16 11:11] VITALS: BP 170/64; PULSE 64; RESP 16; TEMP 36.4; O2SAT 99
== END 2023-10-16 11:12 | disposition home or self-care (01) ==
PROVIDERS: Emergency Provider Emergency Medicine; PCP Family Medicine; Visit Provider Emergency Medicine
DX: J10.1 Influenza due to other identified influenza virus with other respiratory manifestations (principal); E11.22 Type 2 diabetes mellitus with diabetic chronic kidney disease; Z79.4 Long term (current) use of insulin; N18.9 Chronic kidney disease, unspecified; Z87.891 Personal history of nicotine dependence; I12.9 Hypertensive chronic kidney disease with stage 1 through stage 4 chronic kidney disease, or unspecified chronic kidney disease; R05.9 Cough, unspecified; E78.00 Pure hypercholesterolemia, unspecified; Z85.038 Personal history of other malignant neoplasm of large intestine; F32.A Depression, unspecified; Z79.899 Other long term (current) drug therapy; Z90.49 Acquired absence of other specified parts of digestive tract
CPT/HCPCS: 87631; 99282

== ENCOUNTER → 2023-11-03 | Outpatient (CLI) | payer MEDICAID, SELFPAY ==
--- NOTE | 2023-11-03 12:08 | CT_ITS ---
EXAM: CT CHEST WITH INTRAVENOUS CONTRAST CLINICAL INDICATION: Lung nodule (prior CT 2018) and new onset SOB TECHNIQUE: Helically acquired images were obtained of the chest with intravenous contrast. This CT exam was performed using one or more of the following dose reduction techniques: automated exposure control, adjustment of the mA and/or kV according to patient size, and/or use of iterative reconstruction technique. CONTRAST: IV 100mL Isovue-370 RADIATION DOSE: CTDIvol = 20.45 mGy, DLP = 2024.94 mGy-cm COMPARISON: CT chest with contrast 04/24/2018. FINDINGS: LUNGS AND PLEURAL SPACES: 4 mm noncalcified and indeterminate subpleural nodule in the peripheral aspect of the left lower lobe remains stable and unchanged. Multifocal irregular subpleural scarring and/or subpleural atelectasis in both lungs are new findings. No pneumothorax. HEART: Calcified plaques in the LAD branch of the left coronary artery. Normal pericardium. Heart size is normal. Normal cardiac size. MEDIASTINUM: Unremarkable. No mediastinal or hilar adenopathy. Esophagus is unremarkable. No hiatal hernia. THYROID: Unremarkable. No thyroid lesions. BONES/JOINTS: Unremarkable. No suspicious lytic or blastic abnormality. VASCULATURE: Normal thoracic aorta. Normal pulmonary arteries. CT/Chest WITH Contrast IMPRESSION: 1. 4 mm noncalcified and indeterminate subpleural nodule in the peripheral aspect of the left lower lobe remains stable and unchanged. Fleischner Society Guidelines (MacMahon, et al. Radiology 2017; 284(1):228-43) suggest that no follow-up is necessary for patients with a low or high risk of malignancy. 2. Multifocal irregular subpleural atelectasis and/or scarring in both lungs are new findings. 3. Prominent calcified plaque in the LAD branch of the left coronary artery. 4. No suspicious acute cardiopulmonary pathology. 5. Incidentally included are splenic varices. Unfortunately this was not included in the comparison CT. Electronically Signed: Logan Hankins MD at 14:08 EST ,
--- NOTE | 2023-11-03 12:08 | CT_ITS ---
INDICATION: ? Splenic varices cause EXAMINATION: CTA abdomen and pelvis - TECHNIQUE: Routine abdominal CT angiogram protocol was performed with IV contrast. MIP images provided. A radiation dose optimization technique was used for this scan. IV Contrast dosage and agent: 100 mL of Isovue-370. Radiation dose DLP 1218.66 mGy / cm. COMPARISON: CT abdomen and pelvis with contrast 08/09/2023. FINDINGS: Lung bases: Normal. Liver: Normal. No bile ductal dilatation. Gallbladder: Normal. Spleen: Normal. Adrenal gland: Normal. Kidneys: Nonenhancing cysts in the left kidney are unchanged. No hydronephrosis or stone formation. Pancreas:Normal. Bowel gas pattern: Nonobstructive. Appendix: Not visualized but there are no secondary signs of acute appendicitis. Free air: None. Free fluid: None. Pelvis: Pelvic organs: No mass lesion noted. Bone survey: No aggressive bony lesions. No acute fractures. Adenopathy: No significant pathologic adenopathy detected. Other: None. Vascular: Tortuous enhancing splenic veins suggestive of varicose veins. Multiple enhancing gastric varices without esophageal varices. Normal splenoportal confluence and normal portal veins. Normal abdominal aorta and branches.. CT/CTA Abd/Pelvis W/WO Contrast IMPRESSION: 1. 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 These are unchanged. Etiology is unknown since I do not see evidence of portal venous outflow obstruction. 2. 2 small nonenhancing cysts in the left kidney are unchanged. There are simple cysts. 3. Nonvisualization of the appendix but no acute appendicitis. 4. No significant interval change when compared to 08/09/2023. Electronically Signed: Logan Hankins MD at 14:19 EST ,
--- OUTSIDE RECORDS SUMMARY | 2023-11-03 12:28 | XMS RPT_ITS | CCD ---
Author Name Unknown Address [address] [place] [address] Organization [facility] Care Team Providers Care Tax Representative Name Role Phone New GARCIA, Jeancarlos Singh Unavailable Dutch Zhong MD Primary Care Provider DUTCH [...] Unavailable NANCY, DUTCH Granado Primary Care Unavailable NANCYDUTCH Attending Unavailable Allergies Allergy Classification Reported Allergen(s) Allergy Type Date of Onset Reaction(s) Facility (20 sources) Erythromycin; Translations: [ERYTHROMYCIN] Drug Allergy 5 [facility] (20 sources) Loratadine; Translations: [LORATADINE] Drug Allergy 5 [facility] (20 sources) Homeopathic Products; Translations: [HOMEOPATHIC PRODUCTS] Propensity to adverse reactions 5 [facility] Work Phone: (20 sources) Lisinopril; Translations: [LISINOPRIL] Drug Allergy 2 Other: See Comments [facility] Work Phone: (20 sources) amLODIPine; Translations: [AMLODIPINE] Drug Allergy 2 Swelling [facility] Work Phone: Medications Current Medications Medication Drug [...] Diastolic blood pressure 88 mm[Hg] Eden Diamond APRN.COLOR FINISHER Work Phone: [facility] 06-23-2023 15:26-0400 Systolic blood pressure 162 mm[Hg] [facility] DIRECTOR PHARMACEUTICAL.COLOR FINISHER Work Phone: [facility] 06-23-2023 14:58-0400 Body height 172.7 cm [facility] DIRECTOR PHARMACEUTICAL.COLOR FINISHER Work Phone: [facility] 06-23-2023 14:58-0400 Body weight 97.5 kg [facility] DIRECTOR PHARMACEUTICAL.COLOR FINISHER Work Phone: [facility] 06-23-2023 14:58-0400 Heart rate 71 /min [facility] DIRECTOR PHARMACEUTICAL.COLOR FINISHER Work Phone: [facility] 06-23-2023 14:58-0400 SaO2% (BldA) [Mass fraction] 99 % [facility] DIRECTOR PHARMACEUTICAL.COLOR FINISHER Work Phone: [facility] 02-01-2023 10:26-0400 Body height 172.7 cm Dutch Zhong MD Work Phone: [facility] 02-01-2023 10:26-0400 Body weight 96.16 kg Dutch Zhong MD Work Phone: [facility] 02-01-2023 10:26-0400 Diastolic blood pressure 82 mm[Hg] Dutch Zhong MD Work Phone: [facility] 02-01-2023 10:26-0400 Heart rate 68 /min Dutch Zhong MD Work Phone: [facility] 02-01-2023 10:26-0400 SaO2% (BldA) [Mass fraction] 97 % Dutch Zhong MD Work Phone: [facility] 02-01-2023 10:26-0400 Systolic blood pressure 164 mm[Hg] Dutch Zhong MD Work Phone: [facility] 12-29-2022 09:36-0400 Body height 172.7 cm Dutch Zhong MD Work Phone: [facility] 12-29-2022 09:36-0400 Body weight 97.52 kg Dutch Zhong MD Work Phone: [facility] 12-29-2022 09:36-0400 Diastolic blood pressure 90 mm[Hg] Dutch Zhong MD Work Phone: [facility] 12-29-2022 09:36-0400 Heart rate 76 /min Dutch Zhong MD Work Phone: [facility] 12-29-2022 09:36-0400 SaO2% (BldA) [Mass fraction] 99 % Dutch Zhong MD Work Phone: [facility] 12-29-2022 09:36-0400 Systolic blood pressure 170 mm[Hg] Dutch Zhong MD Work Phone: [facility] 12-01-2022 10:15-0400 Body weight 97.61 kg Dutch Zhong MD Work Phone: [facility] 12-01-2022 10:15-0400 Diastolic blood pressure 74 mm[Hg] Dutch Zhong MD Work Phone: [facility] 12-01-2022 10:15-0400 Heart rate 75 /min Dutch Zhong MD Work Phone: [facility] 12-01-2022 10:15-0400 Respiratory rate 16 /min Dutch Zhong MD Work Phone: [facility] 12-01-2022 10:15-0400 SaO2% (BldA) [Mass fraction] 99 % Dutch Zhong MD Work Phone: [facility] 12-01-2022 10:15-0400 Systolic blood pressure 136 mm[Hg] Dutch Zhong MD Work Phone: [facility] 10-06-2022 13:17-0500 Diastolic blood pressure 79 mm[Hg] Dutch Zhong MD Work Phone: [facility] 10-06-2022 13:17-0500 Systolic blood pressure 166 mm[Hg] Dutch Zhong MD Work Phone: [facility] 10-06-2022 13:07-0500 Body weight 103.42 kg Dutch Zhong MD Work Phone: [facility] 10-06-2022 13:07-0500 Heart rate 81 /min Dutch Zhong MD Work Phone: [facility] 10-06-2022 13:07-0500 SaO2% (BldA) [Mass fraction] 98 % Dutch Zhong MD Work Phone: [facility] 09-20-2022 15:23-0500 Diastolic blood pressure 100 mm[Hg] Eden Kupiec DIRECTOR PHARMACEUTICAL.COLOR FINISHER Work Phone: [facility] 09-20-2022 15:23-0500 Systolic blood pressure 160 mm[Hg] Eden Kupiec DIRECTOR PHARMACEUTICAL.COLOR FINISHER Work Phone: [facility] 09-20-2022 14:58-0500 Body height 172.8 cm Eden Kupiec DIRECTOR PHARMACEUTICAL.COLOR FINISHER Work Phone: [facility] 09-20-2022 14:58-0500 Body weight 98.61 kg Eden Kupiec DIRECTOR PHARMACEUTICAL.COLOR FINISHER Work Phone: [facility] 09-20-2022 14:58-0500 Heart rate 90 /min Eden Kupiec DIRECTOR PHARMACEUTICAL.COLOR FINISHER Work Phone: [facility] 09-20-2022 14:58-0500 Respiratory rate 16 /min Eden Kupiec DIRECTOR PHARMACEUTICAL.COLOR FINISHER Work Phone: [facility] 09-20-2022 14:58-0500 SaO2% (BldA) [Mass fraction] 100 % Eden Kupiec DIRECTOR PHARMACEUTICAL.COLOR FINISHER Work Phone: [facility] 08-22-2022 10:20-0500 Body temperature 97 [degF] Ruma Ortiz DIRECTOR PHARMACEUTICAL.COLOR FINISHER Work Phone: [facility] 08-22-2022 10:20-0500 Body weight 102.69 kg Ruma Ortiz DIRECTOR PHARMACEUTICAL.COLOR FINISHER Work Phone: [facility] 08-22-2022 10:20-0500 Diastolic blood pressure 84 mm[Hg] Ruma Angel DIRECTOR PHARMACEUTICAL.COLOR FINISHER Work Phone: [facility] 08-22-2022 10:20-0500 Heart rate 76 /min Ruma Ortiz DIRECTOR PHARMACEUTICAL.COLOR FINISHER Work Phone: [facility] 08-22-2022 10:20-0500 Respiratory rate 20 /min Ruma Ortiz DIRECTOR PHARMACEUTICAL.COLOR FINISHER Work Phone: [facility] 08-22-2022 10:20-0500 SaO2% (BldA) [Mass fraction] 96 % Ruma Ortiz DIRECTOR PHARMACEUTICAL.COLOR FINISHER Work Phone: [facility] 08-22-2022 10:20-0500 Systolic blood pressure 132 mm[Hg] Ruma Ortiz DIRECTOR PHARMACEUTICAL.COLOR FINISHER Work Phone: [facility] 06-17-2022 14:53-0400 Diastolic blood pressure 76 mm[Hg] [facility] DIRECTOR PHARMACEUTICAL.COLOR FINISHER Work Phone: [facility] 06-17-2022 14:53-0400 Systolic blood pressure 140 mm[Hg] [facility] DIRECT[facility] PHARMACEUTICAL.COLOR FINISHER Work Phone: [facility] 06-17-2022 14:32-0400 Body height 172.7 cm [facility] DIRECTOR PHARMACEUTICAL.COLOR FINISHER Work Phone: [facility] 06-17-2022 14:32-0400 Body weight 99.79 kg [facility] DIRECTOR PHARMACEUTICAL.COLOR FINISHER Work Phone: [facility] 06-17-2022 14:32-0400 Heart rate 78 /min [facility] DIRECTOR PHARMACEUTICAL.COLOR FINISHER Work Phone: [facility] 06-17-2022 14:32-0400 SaO2% (BldA) [Mass fraction] 100 % [facility] DIRECTOR PHARMACEUTICAL.COLOR FINISHER Work Phone: [facility] 06-02-2022 10:30-0400 Diastolic blood pressure 81 mm[Hg] Mi Nurse Work Phone: [facility] 06-02-2022 10:30-0400 Heart rate 65 /min Mi Nurse Work Phone: [facility] 06-02-2022 10:30-0400 Systolic blood pressure 151 mm[Hg] Mi Nurse Work Phone: [facility] 05-04-2022 09:36-0400 Diastolic blood pressure 88 mm[Hg] Mi Nurse Work Phone: [facility] 05-04-2022 09:36-0400 Heart rate 73 /min Mi Nurse Work Phone: [facility] 05-04-2022 09:36-0400 Systolic blood pressure 151 mm[Hg] Mi Nurse Work Phone: [facility] 03-30-2022 10:52-0400 Body height 172.7 cm Dutch Zhong MD Work Phone: [facility] 03-30-2022 10:52-0400 Body weight 96.98 kg Dutch Zhong MD Work Phone: [facility] 03-30-2022 10:52-0400 Diastolic blood pressure 82 mm[Hg] Dutch Zhong MD Work Phone: [facility] 03-30-2022 10:52-0400 Heart rate 73 /min Dutch Zhong MD Work Phone: [facility] 03-30-2022 10:52-0400 SaO2% (BldA) [Mass fraction] 98 % Dutch Zhong MD Work Phone: [facility] 03-30-2022 10:52-0400 Systolic blood pressure 154 mm[Hg] Dutch Zhong MD Work Phone: [facility] 02-04-2022 11:17-0400 Body weight 97.98 kg Eden Diamond DIRECTOR PHARMACEUTICAL.COLOR FINISHER Work Phone: [facility] 02-04-2022 11:17-0400 Diastolic blood pressure 80 mm[Hg] Eden Diamond DIRECTOR PHARMACEUTICAL.COLOR FINISHER Work Phone: [facility] 02-04-2022 11:17-0400 Heart rate 66 /min [facility] DIRECTOR PHARMACEUTICAL.COLOR FINISHER Work Phone: [facility] 02-04-2022 11:17-0400 SaO2% (BldA) [Mass fraction] 100 % [facility] DIRECTOR PHARMACEUTICAL.COLOR FINISHER Work Phone: [facility] 02-04-2022 11:17-0400 Systolic blood pressure 137 mm[Hg] [facility] DIRECTOR PHARMACEUTICAL.COLOR FINISHER Work Phone: [facility] 12-14-2021 10:03-0400 Diastolic blood pressure 73 mm[Hg] Mi Nurse Work Phone: [facility] 12-14-2021 10:03-0400 Heart rate 73 /min Mi Nurse Work Phone: [facility] 12-14-2021 10:03-0400 Systolic blood pressure 154 mm[Hg] Mi Nurse Work Phone: [facility] 11-27-2021 10:41-0400 Body weight 101.15 kg Dutch Zhong MD Work Phone: [facility] 11-27-2021 10:41-0400 Diastolic blood pressure 86 mm[Hg] Dutch Zhong MD Work Phone: [facility] 11-27-2021 10:41-0400 Heart rate 68 /min Dutch Zhong MD Work Phone: [facility] 11-27-2021 10:41-0400 SaO2% (BldA) [Mass fraction] 100 % Dutch Zhong MD Work Phone: [facility] 11-27-2021 10:41-0400 Systolic blood pressure 164 mm[Hg] Dutch Zhong MD Work Phone: [facility] 11-24-2021 08:55-0400 Body weight 101.15 kg Dutch Zhong MD Work Phone: [facility] 11-24-2021 08:55-0400 Diastolic blood pressure 100 mm[Hg] Dutch Zhong MD Work Phone: [facility] 11-24-2021 08:55-0400 Heart rate 80 /min Dutch Zhong MD Work Phone: [facility] 11-24-2021 08:55-0400 Respiratory rate 18 /min Dutch Zhong MD Work Phone: [facility] 11-24-2021 08:55-0400 Systolic blood pressure 174 mm[Hg] Dutch Zhong MD Work Phone: [facility] 11-19-2021 09:23-0400 Diastolic blood pressure 73 mm[Hg] Mi Nurse Work Phone: [facility] 11-19-2021 09:23-0400 Heart rate 76 /min Mi Nurse Work Phone: [facility] 11-19-2021 09:23-0400 Systolic blood pressure 130 mm[Hg] Mi Nurse Work Phone: [facility] Encounters Encounter Date Encounter Type Care Provider Facility Start: 06-23-2023 End: 06-23-2023 ambulatory DUTCH ZHONG Facility:[facility] Start: 06-23-2023 End: 06-23-2023 Patient encounter procedure Eden [employer] DIRECTOR PHARMACEUTICAL.COLOR FINISHER Work Phone: Endocrinology Procedures Date Procedure Procedure Detail Performing Clinician Start: 06-23-2023 Hemoglobin A1c/Hemoglobin.total in Blood Eden Louiec DIRECTOR PHARMACEUTICAL.COLOR FINISHER Work Phone: Start: 10-06-2022 [email or web address] COVI D-19 BIVALENT BOOSTER VACCINE, AGE 12+ YR Dutch Zhong MD Work Phone: Start: 09-20-2022 Gluc bld gluc mntr d ev cleared fda spec home use Eden Kupiec DIRECTOR PHARMACEUTICAL.COLOR FINISHER Work Phone: Start: 09-20-2022 Hemoglobin A1c/Hemoglobin.total in Blood Eden Kupiec DIRECTOR PHARMACEUTICAL.COLOR FINISHER Work Phone: Start: 06-17-2022 Hemoglobin A1c/Hemoglobin.total in Blood Eden Kupiec DIRECTOR PHARMACEUTICAL.COLOR FINISHER Work Phone: Start: 02-04-2022 Gluc bld gluc mntr d ev cleared fda spec home use Eden Diamond DIRECTOR PHARMACEUTICAL.COLOR FINISHER Work Phone: Start: 02-04-2022 Hemoglobin A1c/Hemoglobin.total in Blood Eden Morrisjf DIRECTOR PHARMACEUTICAL.COLOR FINISHER Work Phone: Start: 01-28-2022 Radex foot complete minimum 3 views Roberto Anderson Work Phone: Start: 08-26-2015 Colonoscopy Mi Nurse Work Phone: Plan of Treatment Date Care Activity Detail Author Start: 02-24-2027 Urine microalbumin profile [facility] Start: 02-08-2024 Hepatitis C antibody , confirmatory test DILATED RETINAL EXAM [facility] Start: 02-02-2024 3 comp foot exam completed DIABETIC FOOT EXAM [facility] Start: 02-02-2024 ANNUAL PCP TEAM INDUSTRIAL REHABILITATION CONSULTANT MARNI DISEASE VISIT ANNUAL PCP TEAM CHRONIC DISEASE VISIT [facility] Start: 02-02-2024 SHINGRIX VACCINE (1 of 2) DURAN GRIX VACCINE (1 of 2) [facility] Immunizations Immunization Date Immunization Notes Care Provider Fa christiano 10-06-2022 COVID-19 booster vaccine, age 12+ yr, bivalent ([employer]) Dutch Zhong MD Work Phone: [facility] 12-02-2021 COVID-19 original vaccine, full dose, monovalent (MODERNA) Dutch Zhong MD Work Phone: [facility] 07-09-2021 COVID-19 original vaccine, full dose, monovalent (MODERNA) Dutch Zhnog MD Work Phone: [facility] 07-09-2021 Influenza, injectabl e, Madin [employer] Canine Kidney, preservative free, quadrivalent Dutch Zhong MD Work Phone: [facility] 07-09-2021 influenza virus vacc ine, unspecified formulation Dutch Zhong MD Work Phone: [facility] 12-02-2020 COVID-19 vaccine, fu ll dose (MODERNA) Ms Nurse Work Phone: [facility] 11-04-2020 COVID-19 vaccine, fu ll dose (MODERNA) Ms Nurse Work Phone: [facility] 02-24-2017 tetanus toxoid, redu jacky diphtheria toxoid, and acellular pertussis vaccine, adsorbed Ms Nurse Work Phone: [facility] 05-28-2014 pneumococcal polysaccharide vaccine, 23 valent Ms Nurse Work Phone: [facility] 04-02-2009 pneumococcal polysaccharide vaccine, 23 valent Ms Nurse Work Phone: [facility] 04-02-2009 pneumococcal vaccine , unspecified formulation Dutch Zhong MD Work Phone: [facility] 01-18-2007 pneumococcal polysaccharide vaccine, 23 valent Ms Nurse Work Phone: [facility] Work Phone: Payers Date Payer Category Payer Medicaid [id number] 2017 Medicaid [facility] MEDICAID [id number] 2017-Present [phone] [address] [place] [address] Medicaid [id number] 2017 Medicaid [id number] 2017 Medicaid [id number] Social History Date Type Detail Facility Start: 07-16-2014 End: 05-04-2022 Tobacco smoking status NHIS Ex-smoker [facility] Work Phone: End: 10-27-2003 History of tobacco use Current smoker [facility] Work Phone: End: 10-27-2003 History of tobacco use Cigar Smoker [facility] Work Phone: Start: 11-19-2021 End: 06-23-2023 Alcohol intake Current non-drinker of alcohol (finding) [facility] Start: 03-01-2012 History SDOH Alcohol Comment recovering alcoholic, quit 2003 [facility] Start: 1970 Sex Assigned At Not on file [facility] Start: 11-06-2021 End: 11-16-2021 Exposure to SARS-CoV-2 (event) Unable to assess [facility] Work Phone: Start: 11-12-2021 End: 06-17-2022 Exposure to SARS-CoV-2 (event) Not sure [facility] End: 10-27-2003 History of tobacco use Cigarette Smoker [facility] Start: 07-16-2014 End: 09-09-2022 Cigarettes smoked current (pack per day) - Reported 2 [facility] Start: 07-16-2014 End: 05-04-2022 Tobacco use and exposure Smokeless tobacco non-user [facility] Start: 09-09-2022 End: 02-01-2023 Tobacco use panel [facility] National Score (1-10 0), lower number is lower risk 70 [facility] Medical Equipment Procedure Code Equipment Code Equipment Origin al Text Equipment Identifier Dates Start: 02-07-2017 End: 06-23-2023 Clinical Notes 06-03-2014 to 06-23-2023 Eden Diamond APRN.COLOR FINISHER - 06/23/2023 3:15 PM EDT Note Date & Type Note Facility 06-23-2023 Note HNO ID: [id number] Author: Eden Diamond APRN.COLOR FINISHER Service: ? Author Type: Nurse Practitioner Type: [...] care provider He is seeing nephrology in [place] ([facility] Under the care of hem/onc for colon [...] daily at bed (more content not included)... [facility] 06-23-2023 History of Present illness [...] to start care with Dr. Griffin with [place] being closer to his home. Has an appt set for next month Also reports he will start with a new primary care provider He is seeing nephrology in [place] ([facility] Under the care of hem/onc for colon [...] complaints at this time. Hypogonadism: States Dr. Zpeeda started him on Testosterone years ago--approx 2013 [...] a day prn. 30 tablet 5 omega 9-hpu-snh-fish oil 300-400-1,000 mg cap Take 1 capsule [...] FOR INSULIN INJECTIONS 800 Each 0 Insulin [place], Disposable, (PEN NEEDLES) 31 gauge x 1/4 [...] LITE STRIPS) test strip, alcohol swabs, Insulin [place], Disposable, (PEN NEEDLES) 31 gauge x 1/4 [...] Type 1 diabetes mellitus with diabetic polyneuropathy ([facility]) Comment: Glycemic control is above goal. He [...] LITE STRIPS) test strip, alcohol swabs, Insulin [place], Disposable, (PEN NEEDLES) 31 gauge x 1/4 [...] unspecified whether stage 3a or 3b CKD ([facility]) Comment: Glycemic control is above goal. He [...] LITE STRIPS) test strip, alcohol swabs, Insulin [place], Disposable, (PEN NEEDLES) 31 gauge x 1/4 [...] LITE STRIPS) test strip, alcohol swabs, Insulin [place], Disposable, (PEN NEEDLES) 31 gauge x 1/4 [...] Level: 4 - Moderate Eden Diamond, MSN, DIRECTOR PHARMACEUTICAL, LASTING MACHINE OPERATOR-C, CDE Endocrinology [facility]/[address], [address] [place], [place] [address] Fax: documented in this encounter [facility] documented in this encounter [facility]10-02-2023 Miscellaneous Notes* Telephone Encounter - Cathi Campbell [...] and advise. Cathi Campbell documented in this encounterA[facility]06-[facility]-2023 Miscellaneous Notes* Telephone Encounter - Eden Diamond APRN.CNP - 02/09/2023 12:30 PM EDT Reviewed. Mild NPDR , no mac edema bilaterally * Telephone Encounter - Nicole Cerda MA - 02/09/2023 8:39 AM EDT Received Eye Exam Report from [facility]. Placed in provider's inbox for review. Route to [place] for scanning. documented in this encounterA[facility]06-07-2023 NoteHNO ID: [id number] Author: Dutch Zhong MD Service: ? Author [...] Patient declined to schedule. He states aldair [employer] has similar program he uses. Due for [...] by mouth at bedtime as needed. Insulin [place], Disposable, (PEN NEEDLES) 31 gauge x 1/4 [...] to 5 tabs a day prn. omega 2-pfs-nca-fish oil 300-400-1,000 mg cap Take 1 capsule [...] Maternal Grandmother melanoma Hyp (more content not included)...[facility]06-07-[facility] History of Present illness Narrative* [...] placed. Patient declined to schedule. He states [employer] has similar program he uses. Due for [...] by mouth at bedtime as needed. Insulin [place], Disposable, (PEN NEEDLES) 31 gauge x 08/31 [...] to 5 tabs a day prn. omega 3-mgv-gxs-fish oil 300-400-1,000 mg cap Take 1 capsule [...] Follow closely. Dutch Zhong documented in this encounterA[facility]c [facility] System05-04-2023 NoteHNO ID: [id number] Author: Dutch Zhong MD Service: ? Author Type: Physician Type: Progress Notes Filed: 12/29/2022 10:17 AM Note Text: Patient presents with: Follow Up HPI: Patient presents today for office visit for follow up. Was admitted into [facility] 11/26-11/28 Anemia and syncope Feeling pretty good. [...] set him up with andrzej Hernandez in [place], although he already sees Andrzej in the [...] Abs Lymph 1.00 - 4.00 k/uL 1.57 Tarrant% % 7.1 Abs Tarrant <0.87 k/uL 0.39 Eosin% % 1.3 Abs [...] 100 unit/mL (3 mL) (more content not included)...[facility]05-04-2023 History of Present illness Narrative* Dutch Zhong MD - 12/29/2022 9:36 AM EDT Patient presents with: Follow Up HPI: Patient presents today for office visit for follow up. Was admitted into [facility] 11/26-11/28 Anemia and syncope Feeling pretty good. [...] set him up with andrzej Hernandez in [place], although he already sees Andrzej in the [...] Abs Lymph 1.00 - 4.00 k/uL 1.57 Tarrant% % 7.1 Abs Tarrant <0.87 k/uL 0.39 Eosin% % 1.3 Abs [...] by mouth at bedtime as needed. Insulin [place], Disposable, (PEN NEEDLES) 31 gauge x 1/4 [...] to 5 tabs a day prn. omega 1-ysz-fnr-fish oil 300-400-1,000 mg cap Take 1 capsule [...] TABLET Dutch Zhong MD documented in this encounterAcmc [facility] System04-28-2023 NoteHNO ID: [id number] Author: dEen Diamond APRN.COLOR FINISHER Service: ? Author Type: Nurse Practitioner Type: [...] change medication. He is seeing nephrology in [place] ([facility] Under the care of hem/onc for colon [...] been taking since. HLD: Managed per Dr. [place] PAST MEDICAL HISTORY Diagnosis Date Acute GI [...] mg by mouth shalonda (more content not included)...[facility]04-14-2023 Miscellaneous Notes* Telephone Encounter - Linda Baxter Ma - 12/09/2022 9:14 AM EDT Patient was made aware of the results. Patient verbalizes understanding. Linda Baxter Ma * Telephone Encounter - Dutch Zhong MD - 12/09/2022 8:00 AM EDT Labs are showing anemia is stable. Kidney functions remains down. Make sure keeps continuing to follow with nephrology. documented in this encounterAcm[facility] System04-07-2023 Miscellaneous Notes* Telephone Encounter - Sarah Howard [...] week along with cbc documented in this encounterAcmc [facility] System04-07-2023 Evaluation note* Diagnosis Gastrointestinal hemorrhage, unspecified gastrointestinal hemorrhage type- Primary Stage 3a chronic kidney disease (HCC) documented in this encounter [facility]04-06-2023 NoteHNO ID: [id number] Author: Dutch Zhong MD Service: ? Author Type: Physician Type: Progress Notes Filed: 12/01/2022 1:55 PM Note Text: Patient presents with: Transition Of Care Hospital F/U: Patient reports he will be getting hemoglobin injection every Monday until otherwise decided. HPI: Patient presents today for office visit for TCM TCM call on 11/28 Admitted to [facility] 11/26-11/28/22. DX: anemia, syncope. Was brought to [...] set him up with andrzej Hernandez in [place], although he already sees Andrzej in the [...] Inject 40 Units subcutaneously twice daily.) Insulin [place], Disposable, (PEN NEEDLES) 31 gauge x 08/31 [...] (Patient not taking: Reported on 12/01/2022) omega 8-sbc-ldg-fish oil 300-400-1,000 mg cap Take 1 capsule by mouth once daily. Multivitamin capsule Take 1 capsule by mouth once daily. No current facility-administered medications for this visit. ALLERGIES: ALLERGIES Allergen Reactions Amlodipine Swelling Uncomfortable swelling Claritin [Loratadin* Hives Erythromycin Spacey Feeling Hayfever [Homeopath* Lisinopril Ot (more content not included)...[facility]04-06-2023 History of Present illness Narrative* Dutch Zhong MD - 12/01/2022 10:31 AM EDT Patient presents with: Transition Of Care Hospital F/U: Patient reports he will be getting hemoglobin injection every Monday until otherwisedecided. HPI: Patient presents today for office visit for TCM TCM call on 11/28 Admitted to [facility] 11/26-11/28/22. DX: anemia, syncope. Was brought to [...] set him up with andrzej Hernandez in [place], although he already sees Andrzej in the [...] Inject 40 Units subcutaneously twice daily.) Insulin [place], Disposable, (PEN NEEDLES) 31 gauge x 1/4 [...] (Patient not taking: Reported on 12/01/2022) omega 7-oyq-crs-fish oil 300-400-1,000 mg cap Take 1 capsule [...] EEG Trigeminal neuralgia Type 1 diabetes mellitus ([facility]) 2002 Dr Zepeda. from pancreatitis. Villous adenoma [...] DIFF Dutch Zhong MD [facility] System04-03-2023 NotePatient Outreach (FAMPWS) REGINALDO HUFFMAN ([id number]) 1970 M Date Time Provider Department 11/28/22 DUTCH ZHONG During your visit today, we recorded the following information about you: Lady Cruz 11/28/2022 10:11 AM Signed TRANSITION CARE MANAGEMENT (TCM) INITIAL CONTACT Sausage Canner Outreach Provider Action/FYI: Initial contact with patient post discharge, spoke to patient. Patient identified by name and . TRANSITION CARE MANAGEMENT INITIAL OUTREACH DOCUMENTATION: Date of Outreach: 11/28/2022 Date of Discharge 11/26/2022 Some recent data might be hidden SUMMARY: -Pt discharged from [facility] on 11/26/22. -Admitted for: Syncope Do you [...] 48 Units subcutaneously twice daily. - Insulin Belmont, Disposable, (PEN NEEDLES) 31 gauge x 1/4 [...] 5 tabs a day prn. - omega 5-isz-org-fish oil 300-400-1,000 mg cap Take 1 capsule [...] Noted Resolved Essential hypertension (more content not included)...[facility] 11-28-2022 NoteHNO ID: [id number] Author: Lady Cruz Service: ? Author Type: ? Type: Progress Notes Filed: 11/28/2022 10:11 AM Note Text: TRANSITION CARE MANAGEMENT (TCM) INITIAL CONTACT Sausage Canner Outreach Provider Action/FYI: Initial contact with patient post discharge, spoke to patient. Patient identified by name and . TRANSITION CARE MANAGEMENT INITIAL OUTREACH DOCUMENTATION: Date of Outreach: 11/28/2022 Date of Discharge 11/26/2022 Some recent data might be hidden SUMMARY: -Pt discharged from [facility] on 11/26/22. -Admitted for: Syncope Do you [...] from recent hospitalization: Pl[facility] provider [facility] History of Present illness Narrative* Lady Cruz - 11/28/2022 9:55 AM EDT TRANSITION CARE MANAGEMENT (TCM) INITIAL CONTACT Sausage Canner Outreach Provider Action/FYI: Initial contact with patient post discharge, spoke to patient. Patient identified by name and . TRANSITION CARE MANAGEMENT INITIAL OUTREACH DOCUMENTATION: Date of Outreach: 11/28/2022 Date of Discharge 11/26/2022 Some recent data might be hidden SUMMARY: -Pt discharged from [facility] on 11/26/22. -Admitted for: Syncope Do you [...] for provider to review documented in this encounterAcmc Healthcare System02-09-2023 NoteHNO ID: [id number] Author: Dutch Zhong MD Service: ? Author [...] 1 tablet by mouth once daily. omega 7-mok-mmq-fish oil 300-400-1,000 mg cap Take 1 capsule [...] mouth at bedtime as needed. 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 from pancreatitis. Villous adenoma [...] Uncle Hypertension Sister Hyp (more content not included)...[facility]02-09-2023 History of Present illness Narrative* [...] 1 tablet by mouth once daily. omega 2-gho-wtt-fish oil 300-400-1,000 mg cap Take 1 capsule [...] (Patient not taking: Reported on 10/06/2022) Insulin Belmont, Disposable, (PEN NEEDLES) 31 gauge x 1/4 [...] deformity, or tenderness ASSESSMENT/PLAN: 1. Seizure disorder ([facility]) - ICD9: 345.90, ICD10: G40.909 (primary diagnosis) - check level with next lab draw - CARBAMAZEPI/TEGRETOL 2. Hypertension due to endocrine disorder - ICD9: 405.99, 259.9, ICD10: I15.2 - getting new med per nephro. Follow up in four to six weeks. - ATENOLOL 50 MG TABLET 3. Moderate episode of recurrent major depressive disorder ([facility]) - ICD9: 296.32, ICD10: F33. - ARIPIPRAZOLE 2 MG TABLET 4. Mixed hyperlipidemia - ICD9: 272.2, ICD10: E78.2 - ROSUVASTATIN 40 MG TABLET 5. Type 1 diabetes mellitus with diabetic polyneuropathy ([facility]) - ICD9: 250.61, 357.2, ICD10: E10.42 - stable. Encouraged compliance. Follow with endo - INSULIN LISPRO (U-100) 100 UNIT/ML SUBCUTANEOUS PEN 6. Type 1 diabetes mellitus with nephropathy ([facility]) - ICD9: 250.41, 583.81, ICD10: E10.21 - INSULIN LISPRO (U-100) 100 UNIT/ML SUBCUTANEOUS PEN 7. Type 1 diabetes mellitus with stage 3 chronic kidney disease, unspecified whether stage 3a or 3bCKD ([facility]) - ICD9: 250.41, 585.3, ICD10: E10.22, N18.30 - INSULIN LISPRO (U-100) 100 UNIT/ML SUBCUTANEOUS PEN 8. 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 Author Type: Nurse Practitioner Type: [...] change medication. He is seeing nephrology in [place] ([facility] Under the care of hem/onc for colon [...] 04/15/2005 LISINOPRIL 11/24/2021 O (more content not included)...[facility] 09-20-2022 Instructions* Patient Instructions* Eden [...] up with Dr. Zhong. Eden Diamond, MSN, DIRECTOR PHARMACEUTICAL, LASTING MACHINE OPERATOR-C, CDE Endocrinology [facility]/[address] [place] [address] Fax: documented in this encounterAcmc Healthcare System01-24-2023 History of Present illness Narrative* Eden Diamond, DIRECTOR PHARMACEUTICAL.COLOR FINISHER - 09/20/2022 2:59 PM EST Reason for [...] change medication. He is seeing nephrology in [place] ([facility].) Under the care of hem/onc for colon [...] 140 units daily 135 mL 3 Insulin Belmont, Disposable, (PEN NEEDLES) 31 gauge x 1/4 [...] a day prn. 30 tablet 5 omega 4-jjl-dqi-fish oil 300-400-1,000 mg cap Take 1 capsule [...] minutes based on response and tolerability. 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 He [...] Level: 4 - Moderate Eden Diamond, MSN, DIRECTOR PHARMACEUTICAL, LASTING MACHINE OPERATOR-C, CDE Endocrinology [facility] Medical Office Building/[address], [facility] [address] [place] [address] Fax: documented in this encounterAcmc Healthcare System12-26-2022 NoteHNO ID: [id number] Author: Ruma Ortiz APRN.COLOR FINISHER Service: ? 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 from pancreatitis. Villous adenoma [...] SS up to 140 units daily Insulin Belmont, Disposable, (PEN NEEDLES) 31 gauge x 1/4 [...] to 5 tabs a day prn. omega 1-cub-ruh-fish oil 300-400-1,000 mg cap Take 1 capsule by mouth once daily. Multivitamin capsule Take 1 capsule by mouth once daily. docosahexanoic acid/epa (FISH OIL ORAL) Take by mouth once daily. Lancets lancets TEST BLOOD SUGARS 4 TIMES DAILY. E10.9. Uses insulin. VITAMIN E, DL,TOCOPHER (more content not included)...[facility] 08-22-2022 History of Present illness Narrative* Ruma Ortiz APRN.COLOR FINISHER - 08/22/2022 10:28 AM EST CC: Patient [...] SS up to 140 units daily Insulin Belmont, Disposable, (PEN NEEDLES) 31 gauge x 1/4 [...] to 5 tabs a day prn. omega 3-xmd-qng-fish oil 300-400-1,000 mg cap Take 1 capsule [...] plan. Ruma Ortiz APRN.SARAH documented in this encounterAcmc Healthcare System11-11-2022 Miscellaneous Notes* Telephone Encounter - Shadia Renae [...] advise. Shadia Renae Pss documented in this encounterAcmc Healthcare System10-21-2022 History of Present illness Narrative* Eden Diamond APRN.COLOR FINISHER - 06/17/2022 2:45 PM EDT Reason for [...] stating he has to travel far from [place] to do so. History in addition to [...] minutes based on response and tolerability. 2 Agency 1 Blood-Glucose Meter (FREESTYLE LITE METER) monitoring kit 1 Each as needed. 1 Each 0 sildenafil (REVATIO) 20 mg tablet 2 to 5 tabs a day prn. 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 No enough data to make changes today. Plan: HEMOGLOBIN A1C (POC), insulin glargine (LANTUS SOLOSTAR U-100 INSULIN) 100 unit/mL (3 mL), insulin lispro (ADMELOG SOLOSTAR U-100 INSULIN) 100 unit/mL, Insulin Belmont, Disposable, (PEN NEEDLES) 31 gauge x 1/4 ndle, alcohol swabs, blood sugar diagnostic (FREESTYLE LITE STRIPS) test strip Continue current insulin doses. Check BG 4x per day. Mail me readings in 1-2 wk. Follow up with me in 3 months or LASTING MACHINE OPERATOR Farhat (in eddi) (E29.1) Hypogonadism in male [...] which included preparing to see the patient, [id number] patient care, completing clinical documentation, obtaining and/or reviewing separately obtained history, performing a medically appropriate examination, counseling and educating the pat ient/family/caregiver, ordering medications, tests, or procedures, and communicating results to thepatient/family/caregiver. Eden Diamond, MSN, DIRECTOR PHARMACEUTICAL, LASTING MACHINE OPERATOR-C, CDE Endocrinology [facility] Office [facility]/[address] [place] [address] Fax: documented in this encounterAcmc Healthcare System10-07-2022 Miscellaneous Notes* Telephone Encounter - So Ferrer Pss - 06/03/2022 1:48 PM EDT [facility] Patient has been identified by name and [...] advise. So Ferrer Pss documented in this encounterAcmc Healthcare System10-06-2022 Miscellaneous Notes* Telephone Encounter - Ilene Stewart [...] PCP. Alia Villegas LPN documented in this encounterAcmc Healthcare System10-06-2022 History of Present illness Narrative* Alia Villegas [...] PCP. Alia Villegas LPN documented in this encounterAcmc Healthcare System09-07-2022 Miscellaneous Notes* Telephone Encounter - Germaine Huffman Ma - 05/04/2022 10:06 AM EDT Called [...] PCP. Alia Villegas LPN documented in this encounterAcmc Healthcare System09-07-2022 History of Present illness Narrative* Alia Villegas [...] PCP. Alia Villegas LPN documented in this encounterAcmc Healthcare System08-12-2022 Miscellaneous Notes* Telephone Encounter - Tabatha Bernal [...] patient. Tabatha Bernal Pss documented in this encounterAcmc Healthcare System08-03-2022 History of Present illness Narrative* Dutch Zhong [...] See Lindsay's last note: He went to [place] ER on 02/04. Refers he was at the [place] like was going to pass out. Did [...] to the car, had dizziness. Proceeded to [place] ER. He had reproducible vertiginous symptoms and nystagmus with [place]. Refers that he had meclizine and phenergan. [...] to 5 tabs a day prn. omega 3-zgw-vhs-fish oil 300-400-1,000 mg cap Take 1 capsule by mouth once daily. Multivitamin capsule Take 1 capsule by mouth once daily. alcohol swabs padm Use 8 swabs daily TO CHECK BLOOD SUGAR AND FOR INSULIN INJECTIONS blood sugar diagnostic (FREESTYLE LITE STRIPS) test strip TEST four times a day, IDDM, E11.65 Insulin Belmont, Disposable, (PEN NEEDLES) 31 gauge x 1/4 [...] Dutch Zhong MD bp check in one [facility] RTO in I six months documented in this encounterAcmc Healthcare System06-27-2022 Miscellaneous Notes* Telephone Encounter - Sujey Albarran LPN - 02/21/2022 1:35 PM EDT See telephone note from 02/10. * Telephone Encounter - Roberto Anderson - 02/09/2022 5:04 PM EDT I attempted to contact patient to discuss xray results. No answer. Left message for patient to contact me to discuss Roberto Anderson DPM documented in this encounterAcmc Healthcare System06-16-2022 Miscellaneous Notes* Telephone Encounter - Roberto Anderson [...] week Roberto Anderson DPM documented in this encounterAcmc Healthcare System06-15-2022 Instructions* Patient Instructions* Roberto Anderson - 02/09/2022 1:29 PM EDT Continue with betadine between left 4th and 5th toe Apply lambs wool to prevent rubbing Repeat xrays today. Wear surgcial shoe Apply betadine between right 4th and 5th toe Consider using toe spacer on right documented in this encounterAcmc Healthcare System06-15-2022 History of Present illness Narrative* Roberto Anderson [...] (A) 4.2 - 5.6 % Final Comment: Location:[facility], [address] [place], [address] Point of care (POC) Hemoglobin A1c (HGBA1C) [...] specific diabetes management situations: The POC device videotape recording engineer provides a normal range of 4.2% to 6.5% for the HGBA1C POC test. However, the [place] Diabetes [employer] guidelines indicate that patients with [...] four times a day, IDDM, E11.65 Insulin Belmont, Disposable, (PEN NEEDLES) 31 gauge x 1/4 [...] (Patient not taking: Reported on 02/04/2022) omega 8-hek-qmn-fish oil 300-400-1,000 mg cap Take 1 capsule [...] breakdown of skin (HCC) (primary encounter diagnosis) (S97.619D) Closed nondisplaced fracture of proximal phalanx of [...] was at last visit. documented in this encounterAcmc Healthcare System06-10-2022 Miscellaneous Notes* Telephone Encounter - Eden Diamond [...] increase in symptoms. Transportneeded to take to [place] [facility]. Paramedics arrived at 1153. Assessment and hand off report. Patient deemed stable and [facility] 2 nurses, and provider at bedside to assist. Time: 1147 BP: 137/79 P: 52 O2 98% RA Patient reports that he took 1 Vicodin at 0800 for Toe Pain, but has taken this in the past with noissues. Time 1149 BP: 141/79 HR: 55 O2: 98 % RA documented in this encounterAcmc Healthcare System06-10-2022 NoteHNO ID: [id number] Author: RT Julius(R) Service: Radiology Author Type: [...] BY: RT Julius(R) February 04, 2022 1:11 PMOhio [facility] [id number] Miscellaneous Notes* Telephone Encounter - Eden Diamond APRN.SARAH - 02/04/2022 12:42 PM EDT Reviewed Mild non proliferative diabetic retinopathy with macular edema of right eye noted. Problem list updated. Thank you * Telephone Encounter - Didi Garcia LPN - 02/04/2022 9:03 AM EDT [facility] [place] [facility] HM Updated. documented in this encounterAcmc Healthcare System06-06-2022 History of Present illness Narrative* Lisette Lovell [...] his toe 3 weeks ago. Seen in [place] ER on 01/26 with xrays showing L [...] DO January 31, 2022 documented in this encounterAcmc Healthcare System06-06-2022 Miscellaneous Notes* Telephone Encounter - Roberto Anderson [...] ED Roberto Anderson DPM documented in this encounterAcmc Healthcare System06-03-2022 Instructions* Patient Instructions* Roberto Anderson - 01/28/2022 [...] (or decreased sensation in your feet) a professor of psychiatry should always cut your toenails. Be Careful [...] Go to your health care provider or professor of psychiatry to treat these conditions. documented in this encounterAcmc Healthcare System06-03-2022 History of Present illness Narrative* RT Kolby(R) [...] 28, 2022 2:45 PM documented in this encounterAcmc Healthcare System06-03-2022 History of Present illness Narrative* Roberto Anderson - 01/28/2022 1:42 PM EDT Subjective: Patient presents to clinic c/o painful toenails. They state that the nails are especially painful with shoe gear and pressure. Patient states that nails 1-5 b/l are painful. Patient reports that he recently noticed pain and swelling in left 4th toe. He presented to the [place] emergency room and had xrays taken. xrays [...] measure: Medication Comments: Hydrocodone/elevation documented in this encounterAcmc Healthcare System05-12-2022 Miscellaneous Notes* Telephone Encounter - Brooklyn Cortez [facility] - 01/06/2022 11:27 AM EDT Patient has [...] notify patient. Brooklyn Briceno documented in this encounterAcmc Healthcare System04-29-2022 Miscellaneous Notes* Telephone Encounter - Leo Harris - 12/24/2021 4:40 PM EDT RX [...] of his refill request. documented in this encounterAcmc Healthcare System04-29-2022 Miscellaneous Notes* Telephone Encounter - Sarah Howard LPN - 12/24/2021 12:06 PM EDT Notified patient of lab results. * Telephone Encounter - Sarah Howard LPN - 12/23/2021 1:15 PM EDT CEA not available in [facility] system. Dr Zhong aware. Results faxed to Dr Ibarra. Await final result before calling patient. * Telephone Encounter - Dutch Zhong MD - 12/23/2021 8:45 AM EDT Anemia is stable potassium is ok. . CEA looks ok but I need to see what his last one was. Can we pull he ceas from [facility] computer for me to see documented in this encounterAcmc Healthcare System04-19-2022 Miscellaneous Notes* Telephone Encounter - Linda Baxter [...] would be contacted after review by Dr telephone advice nurse. Alia Villegas LPN documented in this encounterAcmc Healthcare System04-19-2022 History of Present illness Narrative* Alia Villegas [...] he would be contacted after review by telephone advice nurse. Alia Villegas LPN documented in this encounterAcmc Healthcare System04-07-2022 Miscellaneous Notes* Telephone Encounter - Kassie Melchor [...] daily IF CrCl <30 Kassie Melchor PharmD, [facility] Primary Care Clinical Pharmacist Eddi Harrison [facility] * Telephone Encounter - Linda Baxter Ma [...] Thanks, Donte Amos PA-C documented in this encounterAcmc Healthcare System04-05-2022 Miscellaneous Notes* Telephone Encounter - Lindamei Baxter [...] and states that patient was seen in [facility] ER on Monday. Mother reports that patient does not have DVT, but ED told her that the cause of the swelling was that amlodipine dosageis too high. Mother all asking for guidance in regards to this. Please review and advise, Nannette Huerta RN documented in this encounterAcmc Healthcare System04-02-2022 History of Present illness Narrative* Dutch Zhong [...] car last weekend down and back to [place]. No injury. Just began yesterday. Was very [...] Abs Lymph 1.00 - 4.00 k/uL 1.62 Tarrant% % 7.1 Abs [place]arrant <0.87 k/uL 0.31 Eosin% % 1.8 Abs [...] to 5 tabs a day prn. omega 3-tru-vsb-fish oil 300-400-1,000 mg cap Take 1 capsule by mouth once daily. Multivitamin capsule Take 1 capsule by mouth once daily. 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 from pancreatitis. Villous adenoma [...] the ER. He agreeable to go to [facility]. Will communicate via ER Passport and send [...] prn Medical Decision Making documented in this encounterAcmc Healthcare System04-02-2022 Miscellaneous Notes* Telephone Encounter - Linda Baxter [...] labs to his oncologist. documented in this encounterAcmc Healthcare System03-30-2022 History of Present illness Narrative* Dutch Zhong [...] to 5 tabs a day prn. omega 3-qjw-hto-fish oil 300-400-1,000 mg cap Take 1 capsule by mouth once daily. Multivitamin capsule Take 1 capsule by mouth once daily. 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 from pancreatitis. Villous adenoma [...] cholesterol diet. Dutch Zhong documented in this encounterAcmc Healthcare System03-28-2022 Miscellaneous Notes* Telephone Encounter - Dutch Zhong [...] to notify pcp he did go to [facility] ED yest 11/21/21. Pt states he received potassium IV then was sent home. Pt was instructed to FU with pcp in 3-5 days. Pt scheduled 11/24/21 for ED FU. Didi Steele LPN documented in this encounterAcmc Healthcare System03-25-2022 Miscellaneous Notes* Telephone Encounter - Dutch Zhong [...] he will not go, at least in [facility]. He is fully aware of my recommendations andthat not following my advice can lead to . * Telephone Encounter - Jessica Friedman RN - 11/19/2021 4:38 PM EDT Pt called and is notified of providers message and instructions. Pt states he thinks it's from the Amlodipine working his kidneys too hard. Pt states he is in [place] right now and can't go to the [...] to bring it down documented in this encounterAcmc Healthcare System03-25-2022 Miscellaneous Notes* Telephone Encounter - Gini Hogan [...] PCP. Alia Villegas LPN documented in this encounterAcmc Healthcare System03-25-2022 History of Present illness Narrative* Alia Villegas [...] PCP. Alia Villegas LPN documented in this encounterAcmc Healthcare System06-04-2021 NoteHNO ID: [id number] Author: Mindy Mayo APRN.COLOR FINISHER Service: ? Author Type: Nurse Practitioner Type: [...] male from [place] who presents to the [facility] outpatient neurology department with a chief [...] 1 ML INJECTIONS EVERY 2 WEEKS omega 6-jtp-euo-fish oil 300-400-1,000 mg cap Take 1 capsule by mouth once daily. Multivitamin capsule Take 1 capsule by mouth once daily. alcohol swabs padm Use 8 swabs daily TO CHECK BLOOD SUGAR AND FOR INSULIN INJECTIONS blood sugar diagnostic (FREESTYLE LITE STRIPS) test strip TEST four times a day, IDDM, E11.65 Insulin [place], Disposable, (PEN NEEDLES) 31 gauge x 1/4 [...] Major depressive disorder, rec (more content not included)...[facility]04-15-2021 NoteHNO ID: [id number] Author: Azul Still Service: ? Author Type: Physician Type: Progress Notes Filed: 12/10/2020 10:29 PM Note Text: [facility] EPILEPSY [facility] NOTE - RETURN VISIT Chief [...] was not using pillbox. Always goes to [place] ED for seizures; given Dilaudid and something else. Each seizure lasts about 5 hours, left face and arm twitching. He remains aware, is able to talk. One seizure in 2020 so far: 11/14/2020, seen in [place] ED. After IV meds, seizure subsides within [...] were normal. MRI brain was normal at [facility] in 2019. Current AED: CBZ 600 BID [...] to the house. Now, he knows to tie puller as soon as seizure starts. EXAM [...] BID] Takes CBZ 10A (more content not included)...[facility] 06-03-2014 History of Past illness Narrative* Problem [...] of this encounter (statuses as of 11/19/2021) [facility] Narrative* Problem Noted [...] of this encounter (statuses as of 11/19/2021) [facility] N[facility]* Problem Noted [...] of this encounter (statuses as of 11/22/2021) [facility] Narrative* Problem Noted [...] of this encounter (statuses as of 11/24/2021) [facility] Narrative* Problem Noted [...] of this encounter (statuses as of 11/27/2021) [facility] Narrative* Problem Noted [...] of this encounter (statuses as of 11/27/2021) [facility] Narrative* Problem Noted [...] of this encounter (statuses as of 11/30/2021) [facility] Narrative* Problem Noted [...] of this encounter (statuses as of 12/01/2021) [facility] Narrative* Problem Noted [...] of this encounter (statuses as of 12/03/2021) [facility] Narrative* Problem Noted [...] of this encounter (statuses as of 12/14/2021) [facility] Narrative* Problem Noted [...] of this encounter (statuses as of 12/15/2021) [facility] Narrative* Problem Noted [...] of this encounter (statuses as of 12/24/2021) [facility] Narrative* Problem Noted [...] of this encounter (statuses as of 12/24/2021) [facility] Narrative* Problem Noted [...] of this encounter (statuses as of 01/06/2022) [facility] N[facility]* Problem Noted [...] of this encounter (statuses as of 01/29/2022) [facility] Narr[facility]* Problem Noted [...] of this encounter (statuses as of 01/29/2022) [facility] Narr[facility]* Problem Noted [...] of this encounter (statuses as of 01/31/2022) [facility] Narrative* Problem Noted [...] of this encounter (statuses as of 02/04/2022) [facility] N[facility]* Problem Noted [...] of this encounter (statuses as of 02/07/2022) [facility] Narr[facility]* Problem Noted [...] of this encounter (statuses as of 02/09/2022) [facility] N[facility]* Problem Noted [...] of this encounter (statuses as of 02/10/2022) [facility] N[facility]* Problem Noted [...] of this encounter (statuses as of 02/21/2022) [facility] N[facility]* Problem Noted [...] of this encounter (statuses as of 03/30/2022) [facility] Narr[facility]* Problem Noted [...] of this encounter (statuses as of 04/11/2022) [facility] N[facility]* Problem Noted [...] of this encounter (statuses as of 05/04/2022) [facility] Narr[facility]* Problem Noted [...] of this encounter (statuses as of 05/04/2022) [facility] Narr[facility]* Problem Noted [...] of this encounter (statuses as of 06/02/2022) [facility] Narr[facility]* Problem Noted [...] of this encounter (statuses as of 06/02/2022) [facility] N[facility]* Problem Noted [...] of this encounter (statuses as of 06/03/2022) [facility] Narrative* Problem Noted [...] of this encounter (statuses as of 06/17/2022) [facility] N[facility]* Problem Noted [...] of this encounter (statuses as of 07/08/2022) [facility] N[facility]* Problem Noted [...] of this encounter (statuses as of 08/27/2022) [facility] N[facility]* Problem Noted [...] of this encounter (statuses as of 09/21/2022) [facility] N[facility]* Problem Noted [...] of this encounter (statuses as of 10/06/2022) [facility] N[facility]* Problem Noted [...] of this encounter (statuses as of 11/28/2022) [facility] N[facility]* Problem Noted [...] of this encounter (statuses as of 12/01/2022) [facility] Narrative* Problem Noted [...] of this encounter (statuses as of 12/02/2022) [facility] N[facility]* Problem Noted [...] of this encounter (statuses as of 12/09/2022) [facility] Narrative* Problem Noted [...] of this encounter (statuses as of 12/29/2022) [facility] Narrative* Problem Noted [...] of this encounter (statuses as of 02/01/2023) [facility] N[facility]* Problem Noted [...] of this encounter (statuses as of 02/09/2023) [facility] N[facility]* Problem Noted [...] of this encounter (statuses as of 05/30/2023) [facility] N[facility]* Problem Noted [...] of this encounter (statuses as of 06/23/2023) [facility] Diagnosis Essential hypertension- Primary Unspecified essential hypertension [facility] Diagnosis Hyperkalemia- Primary Hyperpotassemia Primary hypertension [...] Unspecified essential [facility] Anemia, unspecified type- Primary Renal insufficiency Unspecified disorder of kidney and ureter [facility] Diagnosis Edema of left lower [...] Unspecified essential hypertension [facility] Diagnosis Essential hypertension Unspecified essential hypertension [facility] Diagnosis Acute renal disease- Primary Unspecified disorder of kidney and ureter [facility] Diagnosis Moderate episode of recurrent major depressive disorder (HCC) [facility] Diagnosis Type 1 diabetes mellitus [...] (used in SmartSet) [facility] Diagnosis 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, limited to breakdown of skin (HCC)- Primary Closed nondisplaced fracture of proximal phalanx of lesser toe of left foot with routine healing, subsequent encounter [facility] Diagnosis Essential hypertension- Primary Unspecified [...] of intractable epilepsy [facility] Diagnosis Type 1 diabetes mellitus with [...] unspecified obesity type [facility] Diagnosis URI, acute- Primary Acute upper respiratory infections of unspecified site documented in this encounter [facility] note* Diagnosis Type 1 diabetes mellitus with [...] neoplasm of prostate [facility] Diagnosis Seizure disorder (HCC)- Primary Unspecified [...] unspecified single disease [facility] Diagnosis Gastrointestinal hemorrhage, unspecified gastrointestinal [...] kidney disease (HCC) documented in this encounter [facility] note* Diagnosis Polyneuropathy- Primary Unspecified hereditary and idiopathic peripheral neuropathy Moderate episode of recurrent major depressive disorder (HCC) Stage 3a chronic kidney disease (HCC) Essential hypertension Unspecified essential hypertension documented in this encounter [facility] note* Diagnosis Stage 3a chronic kidney disease (HCC) documented in this encounter [facility] for referral (narrative)* Outpatient Procedure (Routine) - Authorized Specialty Diagnoses / Procedures Referred By Contac t Referred To Contact [facility] Diagnoses Hyperkalemia Primary hypertension Procedures US RENAL ARTERY UNL VAS LAB DUP-SCAN ARTL SHARMIN ABDL/PEL/SCROT&/RPR ORGN LMT Dutch Zhong MD [address] [place] [address] [facility] [place] [address] [place] [address] Referral ID Status Reason Start Date Expiration Date Visits Requested Visits Authorized [id number] Authorized Auto-Generat ed Referral 11/24/2021 11/24/2022 1 1 [facility] for referral (narrative)* Diagnostic Procedure Only (Urgent) - Closed Specialty Diagnoses / Procedures Referred By Contac t Referred To Contact XR IMAGING Diagnoses Osteomyelitis of toe (HCC) Procedures XR FOOT GENERAL 3V AP/LAT/OBL LEFT RADEX FOOT COMPLETE MINIMUM 3 VIEWS Roberto Anderson [address] [place] [address] Xr Imaging Referral ID Status Reason Start Date Expiration Date V isits Requested Visits Authorized [id number] Closed Auto-Generate d Referral 01/28/2022 02/27/2023 1 1 [facility] for referral (narrative)* Diagnostic Procedure Only (Routine) [...] VIEWS Roberto Anderson [address] [place] [address] Xr Imaging Referral ID Status Reason Start Date Expiration Date V isits Requested Visits Authorized [id number] Closed Auto-Generate d Referral 02/09/2022 03/11/2023 1 1 [facility] for visit Narrative* Diagnostic Procedure Only (Urgent) - Closed Specialty Diagnoses / Procedures Referred By Kimmy garcía Referred To Contact XR IMAGING Diagnoses Osteomyelitis of toe (HCC) Procedures XR FOOT GENERAL 3V AP/LAT/OBL LEFT RADEX FOOT COMPLETE MINIMUM 3 VIEWS Roberto Anderson [address] [place] [address] Xr Imaging Referral ID Status Reason Start Date Expiration Date V isits Requested Visits Authorized [id number] Closed Auto-Generate d Referral 01/28/2022 02/27/2023 1 1 [facility] Summary Purpose Family History No Family History Records FoundNo Family History Records FoundNo Family History Records Found Advance Directives No Advanced Directives Records FoundDocuments on File Type Date 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) Advance Directive(s) 05/03/2019 7:09 AM Documents on File Type Date 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) Advance Directive(s) 05/03/2019 7:09 AM Documents on File Type Date 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) Advance Directive(s) 02/04/2022 1:15 PM Advance Directive(s) 05/03/2019 7:09 AM Documents on File Type Date 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) Advance Directive(s) 02/04/2022 1:15 PM Advance Directive(s) 05/03/2019 7:09 AM Reason for Referral Specialty Diagnoses / Procedures Referred By Kimmy garcía Referred To Contact Diagnoses Open nondisplaced fracture of proximal phalanx of lesser toe of left foot, initial encounter Roberto Anderson [address] [place] [address] Referral ID Status Reason Start Date Expiration Date Visits Re quested Visits Authorized [id number] Closed 1 1 Specialty Diagnoses / Procedures Referred By Contac t Referred To Contact XR IMAGING Diagnoses Osteomyelitis of toe (HCC) Procedures XR FOOT GENERAL 3V AP/LAT/OBL LEFT RADEX FOOT COMPLETE MINIMUM 3 VIEWS Roberto Anderson [address] [place] [address] Xr Imaging Referral ID Status Reason Start Date Expiration Date V isits Requested Visits Authorized [id number] Closed Auto-Generate d Referral 01/28/2022 02/27/2023 1 [...] eye and macular edema (HCC) Eden Diamond, [employer]ARR[employer] [address] [address] Referral ID Status Reason Start Date Expiration Date Visits Re quested Visits Authorized [id number] Closed 1 1 Specialty Diagnoses / Procedures [...] eye and macular edema (HCC) Eden Diamond, [employer]ARR[employer] [address] [address] Referral ID Status Reason Start Date Expiration Date Visits Re quested Visits Authorized [id number] Closed 1 1 Additional Source Comments (unrecognized sect ion and content) No Status Records FoundNo Status Records FoundNo Status Records Found INFORMATION SOURCE (unrecogn ized section and content) DATE CREATED AUTHOR AUTHOR'S ORGANLIZETH ATION 02/08/2022 [facility] DATE CREATED AUTHOR AUTHOR'S ORGANIZ ATION 07/01/2023 [facility] Source Comments (unrecognize d section and content) In the event this informatio n is protected by the Federal Confidentiality of Alcohol and Drug Abuse Patient Records regulations: The Federal rules restrict any use of the information to criminally investigate or prosecute any alcohol or drug abuse patient.[facility] event this information is protected by the Federal Confidentiality of Alcohol and Drug Abuse Patient Records regulations: The Federal rules restrict any use of the information to criminally investigate or prosecute any alcohol or drug abuse patient.[facility] the event this information is protected by the Federal Confidentiality of Alcohol and Drug Abuse Patient Records regulations: The Federal rules restrict any use of the information to criminally investigate or prosecute any alcohol or drug abuse patient.[facility] the event this information is protected by the Federal Confidentiality of Alcohol and Drug Abuse Patient Records regulations: The Federal rules restrict any use of the information to criminally investigate or prosecute any alcohol or drug abuse patient.[facility] the event this information is protected by the Federal Confidentiality of Alcohol and Drug Abuse Patient Records regulations: The Federal rules restrict any use of the information to criminally investigate or prosecute any alcohol or drug abuse patient.[facility] the event this information is protected by the Federal Confidentiality of Alcohol and Drug Abuse Patient Records regulations: The Federal rules restrict any use of the information to criminally investigate or prosecute any alcohol or drug abuse patient.[facility] the event this information is protected by the Federal Confidentiality of Alcohol and Drug Abuse Patient Records regulations: The Federal rules restrict any use of the information to criminally investigate or prosecute any alcohol or drug abuse patient.[facility] the event this information is protected by the Federal Confidentiality of Alcohol and Drug Abuse Patient Records regulations: The Federal rules restrict any use of the information to criminally investigate or prosecute any alcohol or drug abuse patient.[facility] the event this information is protected by the Federal Confidentiality of Alcohol and Drug Abuse Patient Records regulations: The Federal rules restrict any use of the information to criminally investigate or prosecute any alcohol or drug abuse patient.[facility] the event this information is protected by the Federal Confidentiality of Alcohol and Drug Abuse Patient Records regulations: The Federal rules restrict any use of the information to criminally investigate or prosecute any alcohol or drug abuse patient.[facility] the event this information is protected by the Federal Confidentiality of Alcohol and Drug Abuse Patient Records regulations: The Federal rules restrict any use of the information to criminally investigate or prosecute any alcohol or drug abuse patient.[facility] the event this information is protected by the Federal Confidentiality of Alcohol and Drug Abuse Patient Records regulations: The Federal rules restrict any use of the information to criminally investigate or prosecute any alcohol or drug abuse patient.[facility] the event this information is protected by the Federal Confidentiality of Alcohol and Drug Abuse Patient Records regulations: The Federal rules restrict any use of the information to criminally investigate or prosecute any alcohol or drug abuse patient.[facility] the event this information is protected by the Federal Confidentiality of Alcohol and Drug Abuse Patient Records regulations: The Federal rules restrict any use of the information to criminally investigate or prosecute any alcohol or drug abuse patient.[facility] the event this information is protected by the Federal Confidentiality of Alcohol and Drug Abuse Patient Records regulations: The Federal rules restrict any use of the information to criminally investigate or prosecute any alcohol or drug abuse patient.[facility] the event this information is protected by the Federal Confidentiality of Alcohol and Drug Abuse Patient Records regulations: The Federal rules restrict any use of the information to criminally investigate or prosecute any alcohol or drug abuse patient.[facility] the event this information is protected by the Federal Confidentiality of Alcohol and Drug Abuse Patient Records regulations: The Federal rules restrict any use of the information to criminally investigate or prosecute any alcohol or drug abuse patient.[facility] the event this information is protected by the Federal Confidentiality of Alcohol and Drug Abuse Patient Records regulations: The Federal rules restrict any use of the information to criminally investigate or prosecute any alcohol or drug abuse patient.[facility] the event this information is protected by the Federal Confidentiality of Alcohol and Drug Abuse Patient Records regulations: The Federal rules restrict any use of the information to criminally investigate or prosecute any alcohol or drug abuse patient.[facility] System[facility] the event this information is protected by the Federal Confidentiality of Alcohol and Drug Abuse Patient Records regulations: The Federal rules restrict any use of the information to criminally investigate or prosecute any alcohol or drug abuse patient.[facility] the event this information is protected by the Federal Confidentiality of Alcohol and Drug Abuse Patient Records regulations: The Federal rules restrict any use of the information to criminally investigate or prosecute any alcohol or drug abuse patient.[facility] the event this information is protected by the Federal Confidentiality of Alcohol and Drug Abuse Patient Records regulations: The Federal rules restrict any use of the information to criminally investigate or prosecute any alcohol or drug abuse patient.[facility] the event this information is protected by the Federal Confidentiality of Alcohol and Drug Abuse Patient Records regulations: The Federal rules restrict any use of the information to criminally investigate or prosecute any alcohol or drug abuse patient.[facility] the event this information is protected by the Federal Confidentiality of Alcohol and Drug Abuse Patient Records regulations: The Federal rules restrict any use of the information to criminally investigate or prosecute any alcohol or drug abuse patient.[facility] the event this information is protected by the Federal Confidentiality of Alcohol and Drug Abuse Patient Records regulations: The Federal rules restrict any use of the information to criminally investigate or prosecute any alcohol or drug abuse patient.[facility] the event this information is protected by the Federal Confidentiality of Alcohol and Drug Abuse Patient Records regulations: The Federal rules restrict any use of the information to criminally investigate or prosecute any alcohol or drug abuse patient.[facility] the event this information is protected by the Federal Confidentiality of Alcohol and Drug Abuse Patient Records regulations: The Federal rules restrict any use of the information to criminally investigate or prosecute any alcohol or drug abuse patient.[facility] the event this information is protected by the Federal Confidentiality of Alcohol and Drug Abuse Patient Records regulations: The Federal rules restrict any use of the information to criminally investigate or prosecute any alcohol or drug abuse patient.[facility] the event this information is protected by the Federal Confidentiality of Alcohol and Drug Abuse Patient Records regulations: The Federal rules restrict any use of the information to criminally investigate or prosecute any alcohol or drug abuse patient.[facility] the event this information is protected by the Federal Confidentiality of Alcohol and Drug Abuse Patient Records regulations: The Federal rules restrict any use of the information to criminally investigate or prosecute any alcohol or drug abuse patient.[facility] the event this information is protected by the Federal Confidentiality of Alcohol and Drug Abuse Patient Records regulations: The Federal rules restrict any use of the information to criminally investigate or prosecute any alcohol or drug abuse patient.[facility] the event this information is protected by the Federal Confidentiality of Alcohol and Drug Abuse Patient Records regulations: The Federal rules restrict any use of the information to criminally investigate or prosecute any alcohol or drug abuse patient.[facility] the event this information is protected by the Federal Confidentiality of Alcohol and Drug Abuse Patient Records regulations: The Federal rules restrict any use of the information to criminally investigate or prosecute any alcohol or drug abuse patient.[facility] the event this information is protected by the Federal Confidentiality of Alcohol and Drug Abuse Patient Records regulations: The Federal rules restrict any use of the information to criminally investigate or prosecute any alcohol or drug abuse patient.[facility] the event this information is protected by the Federal Confidentiality of Alcohol and Drug Abuse Patient Records regulations: The Federal rules restrict any use of the information to criminally investigate or prosecute any alcohol or drug abuse patient.[facility] System[facility] the event this information is protected by the Federal Confidentiality of Alcohol and Drug Abuse Patient Records regulations: The Federal rules restrict any use of the information to criminally investigate or prosecute any alcohol or drug abuse patient.[facility] SystemIn the event this information is protected by the Federal Confidentiality of Alcohol and Drug Abuse Patient Records regulations: The Federal rules restrict any use of the information to criminally investigate or prosecute any alcohol or drug abuse patient.[facility] SystemIn the event this information is protected by the Federal Confidentiality of Alcohol and Drug Abuse Patient Records regulations: The Federal rules restrict any use of the information to criminally investigate or prosecute any alcohol or drug abuse patient.[facility] SystemIn the event this information is protected by the Federal Confidentiality of Alcohol and Drug Abuse Patient Records regulations: The Federal rules restrict any use of the information to criminally investigate or prosecute any alcohol or drug abuse patient.[facility] SystemIn the event this information is protected by the Federal Confidentiality of Alcohol and Drug Abuse Patient Records regulations: The Federal rules restrict any use of the information to criminally investigate or prosecute any alcohol or drug abuse patient.[facility] SystemIn the event this information is protected by the Federal Confidentiality of Alcohol and Drug Abuse Patient Records regulations: The Federal rules restrict any use of the information to criminally investigate or prosecute any alcohol or drug abuse patient.[facility] SystemIn the event this information is protected by the Federal Confidentiality of Alcohol and Drug Abuse Patient Records regulations: The Federal rules restrict any use of the information to criminally investigate or prosecute any alcohol or drug abuse patient.[facility] SystemIn the event this information is protected by the Federal Confidentiality of Alcohol and Drug Abuse Patient Records regulations: The Federal rules restrict any use of the information to criminally investigate or prosecute any alcohol or drug abuse patient.[facility] SystemIn the event this information is protected by the Federal Confidentiality of Alcohol and Drug Abuse Patient Records regulations: The Federal rules restrict any use of the information to criminally investigate or prosecute any alcohol or drug abuse patient.[facility] SystemIn the event this information is protected by the Federal Confidentiality of Alcohol and Drug Abuse Patient Records regulations: The Federal rules restrict any use of the information to criminally investigate or prosecute any alcohol or drug abuse patient.[facility] SystemIn the event this information is protected by the Federal Confidentiality of Alcohol and Drug Abuse Patient Records regulations: The Federal rules restrict any use of the information to criminally investigate or prosecute any alcohol or drug abuse patient.[facility] Reason for Visit (unrecogniz ed section and [...] Comments Diabetic Eye Exam [facility] Reason Comments Bradycardia Reason Comments Insulin Dependent [...] Comments Diabetic Eye Exam Report Family Eye [facility] Reason Onset Date Comments Refill Request 05/29/2023 Care Teams (unrecognized sec tion and content) Tax Representative Relationship Specialty Start Date End Date Dutch Zhong MD [address] [place], [place] [id number] PCP - General Family Practice 01/17/19 Jeancarlos Wolff MD [address] [place] [address] Gastroenterology 09/04/14 Tax Representative Relationship Specialty Start Date End Date Dutch Zhong MD [address], [place] [id number] PCP - General Family Practice 01/17/19 Jeancarlos Wolff MD [address] [place] [address] Gastroenterology 09/04/14 Tax Representative Relationship Specialty Start Date End Date Dutch Zhong MD [address] [facility] [place] [address] PCP - General Family Practice 01/17/19 Jeancarlos Wolff MD [address] [facility] [place] [address] Gastroenterology 09/04/14 Tax Representative Relationship Specialty Start Date End Date Dutch Zhong MD [address] [place] [address] PCP - General Family Practice 01/17/19 Jeancarlos Wolff MD [address] [facility] [place] [address] Gastroenterology 09/04/14 Tax Representative Relationship Specialty Start Date End Date Dutch Zhong MD [address] [place] [address] PCP - General Family Practice 01/17/19 Jeancarlos Wolff MD [address] [place] [address] Gastroenterology 09/04/14 Tax Representative Relationship Specialty Start Date End Date Dutch Zhong MD [address] [place] [address] PCP - General Family Practice 01/17/19 Jeancarlos Wolff MD [address] [facility] [address] Gastroenterology 09/04/14 Tax Representative Relationship Specialty Start Date End Date Dutch Zhong MD [address] [place] [address] PCP - General Family Practice 01/17/19 Jeancarlos Wolff MD [address] [facility] [address] Gastroenterology 09/04/14 Tax Representative Relationship Specialty Start Date End Date Dutch Zhong MD [address] [place] [address] PCP - General Family Practice 01/17/19 Jeancarlos Wolff MD [address] [place] [address] Gastroenterology 09/04/14 Tax Representative Relationship Specialty Start Date End Date Dutch Zhong MD [address] [place] [address] PCP - General Family Practice 01/17/19 Jeancarlos Wolff MD [address] [place] [address] Gastroenterology 09/04/14 Tax Representative Relationship Specialty Start Date End Date Dutch Zhong MD [address] [place] [address] PCP - General Family Practice 01/17/19 Jeancarlos Wolff MD [address] [place] [address] Gastroenterology 09/04/14 Tax Representative Relationship Specialty Start Date End Date Dutch Zhong MD [address] [place] [address] PCP - General Family Practice 01/17/19 Jeancarlos Wolff MD [address] [place] [address] Gastroenterology 09/04/14 Tax Representative Relationship Specialty Start Date End Date Dutch Zhong MD [address] [facility] [place] [address] PCP - General Family Practice 01/17/19 Jeancarlos Wolff MD [address] [place] [address] Gastroenterology 09/04/14 Tax Representative Relationship Specialty Start Date End Date Dutch Zhong MD [address] [place] [address] PCP - General Family Practice 01/17/19 Jeancarlos Wolff MD [address] [place] [address] Gastroenterology 09/04/14 Tax Representative Relationship Specialty Start Date End Date Dutch Zhong MD [address] [place] [address] PCP - General Family Practice 01/17/19 Jeancarlos Wolff MD [address] [place] [address] Gastroenterology 09/04/14 Tax Representative Relationship Specialty Start Date End Date Dutch Zhong MD [address] [facility] [place] [address] PCP - General Family Practice 01/17/19 Jeancarlos Wolff MD [address] [place] [address] Gastroenterology 09/04/14 Tax Representative Relationship Specialty Start Date End Date Dutch Zhong MD [address] [place] [address] PCP - General Family Medicine 01/17/19 Jeancarlos Wolff MD [address] [facility] [place] [address] Gastroenterology 09/04/14 Tax Representative Relationship Specialty Start Date End Date Dutch Zhong MD [address] [facility] [address] PCP - General Family Medicine 01/17/19 Jeancarlos Wolff MD [address] [place] [address] Gastroenterology 09/04/14 Tax Representative Relationship Specialty Start Date End Date Dutch Zhong MD [address] [place] [address] PCP - General Family Medicine 01/17/19 Jeancarlos Wolff MD [address] [place] [address] Gastroenterology 09/04/14 Tax Representative Relationship Specialty Start Date End Date Dutch Zhong MD [address] [place] [address] PCP - General Family Medicine 01/17/19 Jeancarlos Wolff MD [address] [place] [address] Gastroenterology 09/04/14 Tax Representative Relationship Specialty Start Date End Date Dutch Zhong MD [address] [place] [address] PCP - General Family Medicine 01/17/19 Jeancarlos Wolff MD [address] [place] [address] Gastroenterology 09/04/14 Tax Representative Relationship Specialty Start Date End Date Dutch Zhong MD [address] [place] [address] PCP - General Family Medicine 01/17/19 Jeancarlos Wolff MD [address] [place] [address] Gastroenterology 09/04/14 Tax Representative Relationship Specialty Start Date End Date [place], Dutch J, MD [address] [place] [address] PCP - General Family Medicine 01/17/19 Jeancarlos Wolff MD [address] [place] [address] Gastroenterology 09/04/14 Tax Representative Relationship Specialty Start Date End Date Dutch Zhong MD [address] [place] [address] PCP - General Family Medicine 01/17/19 Jeancarlos Wolff MD [address] [place] [address] Gastroenterology 09/04/14 Tax Representative Relationship Specialty Start Date End Date Dutch hZong MD [address] [place] [address] PCP - General Family Medicine 01/17/19 Jeancarlos Wolff MD [address] [place] [address] Gastroenterology 09/04/14 Tax Representative Relationship Specialty Start Date End Date Dutch Zhong MD [address] [place] [address] PCP - General Family Medicine 01/17/19 Jeancarlos Wolff MD [address] [facility] [place] [address] Gastroenterology 09/04/14 Tax Representative Relationship Specialty Start Date End Date Dutch Zhong MD [address] [place] [address] PCP - General Family Medicine 01/17/19 Jeancarlos Wolff MD [address] [place] [address] Gastroenterology 09/04/14 Tax Representative Relationship Specialty Start Date End Date Dutch Zhong MD [address] [place] [address] PCP - General Family Medicine 01/17/19 Jeancarlos Wolff MD [address] [facility] [place] [address] Gastroenterology 09/04/14 Tax Representative Relationship Specialty Start Date End Date Dutch Zhong MD [address] [place] [address] PCP - General Family Medicine 01/17/19 Jeancarlos Wolff MD [address] [facility] [address] Gastroenterology 09/04/14 Tax Representative Relationship Specialty Start Date End Date Dutch Zhong MD [address] [place] [address] PCP - General Family Medicine 01/17/19 Jeancarlos Wolff MD [address] [facility] [address] Gastroenterology 09/04/14 Tax Representative Relationship Specialty Start Date End Date Dutch Zhong MD [address] [place] [address] PCP - General Family Medicine 01/17/19 Jeancarlos Wolff MD [address] [place] [address] Gastroenterology 09/04/14 Tax Representative Relationship Specialty Start Date End Date Dutch Zhong MD [address] [place] [address] PCP - General Family Medicine 01/17/19 Jeancarlos Wolff MD [address] [place] [address] Gastroenterology 09/04/14 FOR RECORDS PERTAINING TO PATIENTS [...] BE BASED ON THE PRIMARY CLINICAL RECORDS. [employer] provides no warranty or guarantee of the accuracy or completeness of information in this document.
[2023-11-03] MEDS: 0.9% Normal Saline (500mL Bag) 500 ML IV (12:31)
[2023-11-03 13:30] VITALS: BP 187/78; PULSE 65; RESP 16; O2SAT 98
[2023-11-03] MEDS: 0.9% Saline Lock 10 ML Syringe IV (13:55)
== END | disposition home or self-care (01) ==
LOC: CT 12:07
PROVIDERS: PCP Family Medicine; Referring Provider Internal Medicine Gastroenterology; Visit Provider Internal Medicine Gastroenterology
DX: I86.8 Varicose veins of other specified sites (principal); R06.02 Shortness of breath
CPT/HCPCS: 71260; 74174; Q9967; A4216

== ENCOUNTER 2023-12-07 18:38 | Inpatient (IN) | payer MEDICAID, SELFPAY ==
[2023-12-07 18:39] VITALS: BP 143/78; PULSE 77; RESP 16; TEMP 36.1; O2SAT 100; BMI 31.1
--- NOTE | 2023-12-07 19:03 | EDS_ITS ---
HPI <SERGE Salazar - Last Filed: 12/07/23 20:26> History of Present Illness Chief Complaint: Abn Labs Narrative Narrative: Patient is a 53-year-old male with history of colon cancer who has been cancer free since 2014, history of chronic kidney disease, trigeminal neuralgia depression type 2 diabetes hypertension who presents to the emergency department for concern of his potassium. Patient does have significant kidney disease however is not on any dialysis. Patient potassium was 5.8 today and a basic blood draw and they referred him to the emergency department. Patient dates he overall feels generally well, he has no chest pain or shortness of breath. Patient states his sugars have been well-maintained. He is here for evaluation [facility] <SERGE Salazar - Last Filed: 12/07/23 20:26> [facility] Medical History Arthritis Asthma Carpal tunnel syndrome Depressive disorder Fatty liver Former smoker GERD (gastroesophageal reflux disease) Hepatitis C High cholesterol History of alcohol abuse History of colon cancer History of echocardiogram History of edema History of pain when walking History of stress test Hx of vertigo Leg cramps Obesity Pancreatitis portacath placement Restless legs Seizure disorder Sezary disease Syncope Therapeutic drug monitoring Trigeminal nerve disorder Wears glasses Home Medications cholecalciferol (vitamin D3) 25 mcg (1,000 unit) capsule 1,000 unit PO DAILY 10/10/13 [History Last Taken 11/13/15] sertraline 100 mg tablet 100 mg PO DAILY 07/18/14 [History Last Taken 11/13/15] multivitamin with folic acid 400 mcg tablet 1 tab PO DAILY 10/21/14 [History Last Taken 11/13/15] rosuvastatin 40 mg tablet 40 mg PO DAILY 11/24/16 [History Last Taken Unknown] fish oil-dha-epa 1,200 mg-144 mg-216 mg capsule 1 each PO DAILY 11/14/20 [History Last Taken Unknown] aripiprazole 2 mg tablet (Abilify) 2 mg PO DAILY 12/24/20 [History Last Taken Unknown] lisinopril 40 mg tablet 40 mg PO DAILY 05/20/21 [History Last Taken 08/02/23] insulin glargine 100 unit/mL (3 mL) subcutaneous pen (Basaglar KwikPen U-100 Insulin) 25 unit subcut .QAM & HS 02/03/23 [History Last Taken Unknown] insulin lispro 100 unit/mL subcutaneous pen (Admelog SoloStar U-100 Insulin lispro) 30 unit subcut TID 02/03/23 [History Last Taken Unknown] furosemide 20 mg tablet 20 mg PO DAILY 04/27/23 [History Last Taken Unknown] carbamazepine 200 mg tablet 600 mg (3 x 200 mg) PO BID #180 tabs 07/12/23 [Rx Last Taken Unknown] nadolol 20 mg tablet 20 mg PO .bid #60 tabs 08/02/23 [Rx Last Taken Unknown] pantoprazole 20 mg tablet,delayed release 40 mg (2 x 20 mg) PO Q12H #60 tabs 08/02/23 [Rx Last Taken Unknown] albuterol sulfate 90 mcg/actuation aerosol inhaler (Ventolin HFA) 1 - 2 puff inhalation Q4H PRN PRN Wheezing #1 inh 10/16/23 [Rx Last Taken Unknown] benzonatate 200 mg capsule 200 mg PO TID PRN cough #20 caps 10/16/23 [Rx Last Taken Unknown] Allergy/AdvReac Type Severity Reaction Status Date / Time doxazosin [From Cardura] Allergy Severe Bleeding Verified 12/07/23 18:41 erythromycin base Allergy Severe Hives Verified 12/07/23 18:41 loratadine [From Claritin] Allergy Severe Rash Verified 12/07/23 18:41 Family History Grandmother Cervical cancer Diabetes Hypertension Trigeminal neuralgia Mother Uterine cancer Arthritis Diabetes Hypertension Grandfather Heart disease Arthritis Diabetes Hypertension Unknown Diabetes Arthritis Father Arthritis Diabetes Hypertension Sister Diabetes Hypertension Uncle CVA (cerebral vascular accident) Aunt Cerebral aneurysm Surgical History H/O left hemicolectomy Hx of appendectomy Social History Smoking Status: Former smoker Tobacco: How many years used: 20 how long ago did patient quit smoking: quit 2003 second hand exposure: No alcohol intake: former details: quit 2003 substance use type: former substance user Date of last use: Used Marijuana since he was a teenager ROS SERGE Burk - Last Filed: 12/07/23 20:26> ROS ED ROS Narrative Constitutional: Negative for fever, chills, weight loss, weakness Eyes: Negative for vision loss, vision change, double vision ENT: Negative for any sore throat, ear pain, congestion Cardiovascular: Negative for any chest pain, tightness, palpitations Respiratory: Negative for any cough, sputum production, hemoptysis, dyspnea, dyspnea on exertion, orthopnea Gastrointestinal: Negative for any abdominal pain, nausea, vomiting, diarrhea, constipation, blood in stool, blood in vomit : Negative for any urinary frequency, dysuria, retention, blood in urine Muscle skeletal: Negative for any neck pain, back pain Neurological: Negative for any headache, syncope, dizziness Skin: Negative for any rashes, itching, abrasions, lacerations Psychiatric: Negative for any depression, anxiety, stress, suicidal ideation, homicidal ideation Hematologic: Negative for any excessive bruising, easy bleeding EXAM <Fransisco Lawson, FRANCOISE-C - Last Filed: 12/07/23 20:26> Physical Exam Narrative Exam Narrative: Vital signs reviewed. HEET: Head normocephalic atraumatic, TMs clear bilaterally. Posterior pharynx is clear, moist mucous membranes. Nares clear bilaterally. Neck: Supple with no lymphadenopathy or tenderness. No signs of meningismus. Cardiac: Regular rate and rhythm no murmurs gallops or rubs, equal peripheral pulses bilaterally. Respiratory: Lungs clear to auscultation bilaterally. No chest tenderness. Abdomen: Soft, nontender, nondistended. No abdominal bruit or pulsatile masses. No hepatosplenomegaly Extremities: No peripheral edema, no signs of gross trauma or deformity. Active full range of motion of all extremities. Neuro: Cranial nerves II through XII intact, no focal neurological deficits. Skin: Clean dry and intact with no rash, purpura, petechiae, vesicles or pustules. Backs/flank: No CVA tenderness, no midline spinal tenderness, no deformity. Psych: Normal mood and affect. No SI, HI or acute psychosis. Const Vital Signs: 12/07/23 18:39 12/07/23 18:39 12/07/23 19:08 Temperature 96.9 F L 96.9 F L Temperature Source Temporal Temporal Pulse Rate 77 77 Respiratory Rate 16 16 Respiratory Pattern Normal Blood Pressure 143/78 H 143/78 H Blood Pressure Mean 99 99 Pulse Ox 100 100 Oxygen Delivery Method Room Air Room Air <Dr. Kirk Schneider, DO - Last Filed: 12/07/23 20:30> Physical Exam Const Vital Signs: 12/07/23 18:39 12/07/23 18:39 12/07/23 19:08 Temperature 96.9 F L 96.9 F L Temperature Source Temporal Temporal Pulse Rate 77 77 Respiratory Rate 16 16 Respiratory Pattern Normal Blood Pressure 143/78 H 143/78 H Blood Pressure Mean 99 99 Pulse Ox 100 100 Oxygen Delivery Method Room Air Room Air [facility] <SERGE Salazar - Last Filed: 12/07/23 20:26> [facility] Lab Data Labs: Laboratory Results - last 24 hr 12/07/23 19:02 WBC 5.3 RBC 2.82 L Hgb 8.6 L Hct 25.2 L MCV 89.4 MCH 30.5 MCHC 34.1 RDW Std Deviation 43.9 RDW Coeff of Ever 13.5 Plt Count 202 MPV 10.5 Immature Gran % (Auto) 0.600 Neut % (Auto) 61.2 Lymph % (Auto) 31.0 [place] % (Auto) 5.3 Eos % (Auto) 1.3 Baso % (Auto) 0.6 Absolute Neuts (auto) 3.2 Absolute Lymphs (auto) 1.63 Nucleated RBC % 0 Sodium 136 Potassium 4.7 Chloride 113 H Carbon Dioxide 20.0 L Anion Gap 3 L BUN 39 H Creatinine 4.39 H Estim Creat Clear Calc 21.05 Est GFR (MDRD) Af Amer 18 L Est GFR (MDRD) Non-Af 15 L BUN/Creatinine Ratio 8.9 L Glucose 186 H Calcium 7.7 L EKG Normal sinus rhythm: Attestation: I personally reviewed and interpreted this EKG as follows: Comments: Normal sinus rhythm, rate of 74 bpm, MI interval 154 ms, QRS duration 96 ms, no acute ST elevation, no acute infarct noted. Treatment and Re-Evaluation :: Differential diagnosis includes however is not limited to: Acute on chronic kidney injury, hyperkalemia, lab mistake, Patient appears to be in no obvious respiratory distress vital signs are stable. Patient presents to the emergency department for concerns of elevated potassium. Patient will receive repeat laboratory values to ensure that the lab value was correct. Patient has no chest pain or shortness of breath, EKG will be obtained. EKG was unremarkable. No peaked T waves. Patient's laboratory values showed a chronic anemia with a hemoglobin of 8.6, patient's chemistries show a normal potassium at 4.7, it is possible that the lab draw prior was hemolyzed. However patient's creatinine is 4.39, patient's baseline is usually 2.5-2.9, patient has been having an increase in his creatinine over the last several months. I do believe the patient needs to be admitted to the hospital. Glucose 186. GFR 15. I will speak to the hospitalist. Patient stable for admission. <Dr. Kirk Schneider, DO - Last Filed: 12/07/23 20:30> [facility] Narrative Medical decision making narrative: I have personally performed a face to face assessment of the patient and have reviewed the MIN Note. I performed a substantive portion of the visit including all aspects of the following. My ryan findings include: History: Patient presents with hypokalemia that was noticed today. Patient had outpatient labs which noted a potassium of 5.2. Patient was told to come to the emergency department. Patient states that his kidney function tests have been increasingly getting worse. Patient denies any chest pain or shortness of breath. Patient denies any nausea or vomiting. Patient denies any fevers or chills. Exam: Vital signs are stable. Patient is afebrile. Patient is in no acute distress. Oral mucosa is pink and moist. Neck is supple. Trachea is midline. There is no JVD. Heart was regular rate and rhythm. Lungs are clear and equal bilaterally. Abdomen is soft. Bowel sounds are normal. There is no te nderness. Cranial nerves II through XII are intact. There are no focal motor or sensory deficits noted. Medical Decision Making: Differential diagnosis includes acute kidney injury, electrolyte abnormality, dehydration, and anemia. CBC will be obtained to assess for leukocytosis and anemia. Basic metabolic profile will be obtained to assess for electrolyte abnormality and renal function. CBC was reviewed. There is a mild anemia with a hemoglobin of 8.6 and hematocrit 25.2. Basic metabolic profile was reviewed. CO2 was slightly low at 20. BUN was 39 and creatinine was 4.39. These are increased from previous results. Patient was advised of his findings. I recommended admission to the hospital for acute kidney injury. Patient is agreeable with this. All questions were answered. Lab Data Labs: Laboratory Results - last 24 hr 12/07/23 19:02 WBC 5.3 RBC 2.82 L Hgb 8.6 L Hct 25.2 L MCV 89.4 MCH 30.5 MCHC 34.1 RDW Std Deviation 43.9 RDW Coeff of Ever 13.5 Plt Count 202 MPV 10.5 Immature Gran % (Auto) 0.600 Neut % (Auto) 61.2 Lymph % (Auto) 31.0 [place] % (Auto) 5.3 Eos % (Auto) 1.3 Baso % (Auto) 0.6 Absolute Neuts (auto) 3.2 Absolute Lymphs (auto) 1.63 Nucleated RBC % 0 Sodium 136 Potassium 4.7 Chloride 113 H Carbon Dioxide 20.0 L Anion Gap 3 L BUN 39 H Creatinine 4.39 H Estim Creat Clear Calc 21.05 Est GFR (MDRD) Af Amer 18 L Est GFR (MDRD) Non-Af 15 L BUN/Creatinine Ratio 8.9 L Glucose 186 H Calcium 7.7 L Discharge Plan Dx/Rx/DC Orders Clinical Impression: Acute kidney injury, Anemia in chronic illness Disposition Disposition: Acute Care [facility]
--- NOTE | 2023-12-07 19:10 | EKG12_ITS ---
Test Reason : DYSRHYTHMIA Blood Pressure : / mmHG Vent. Rate : 074 BPM Atrial Rate : 074 BPM P-R Int : 154 ms QRS Dur : 096 ms QT Int : 380 ms P-R-T Axes : 021 -06 043 degrees QTc Int : 421 ms Normal sinus rhythm Minimal voltage criteria for LVH, may be normal variant ( R in aVL ) Borderline ECG Confirmed by Oswald Pink ([id number]), newspaper copy editor MORGAN JAMISON ([id number]) on 12/08/2023 11:05:10 AM Referred By: Confirmed By:Oswald Pink
[2023-12-07 19:25] LABS: Absolute Lymphocyte Count 1.63 X10^3/uL (0.83-4.51); Absolute Neutrophil Count 3.2 X10^3/uL (2.0-7.7); Basophil# 0.03 X10^3/uL; Basophil% 0.6 % (0-1); Eosinophil# 0.07 X10^3/uL; Eosinophils% 1.3 % (0-5); Hematocrit 25.2 % (40-54); Hemoglobin 8.6 g/dL (13.0-16.5); Lymphocyte # 1.63 X10^3/ul (0.83-4.51); Mean Corp Hgb Conc 34.1 g/dL (32-36); Mean Corpuscular Hgb 30.5 pg (27.0-32.0); Mean Corpuscular Volume 89.4 fL (80-94); Mean Platelet Vol. 10.5 fl (6.2-12.0); Monocyte# 0.28 X10^3/uL; Monocyte% 5.3 % (0-10); NRBC Flagged by Analyzer 0 % (0-5); Neutrophil # 3.21 X10^3/uL (2.7-7.7); Neutrophil % 61.2 % (47-70); Platelet Count 202 K/mm3 (150-450); RBC Distribution Width CV 13.5 % (11.6-14.6); RBC Distribution Width SD 43.9 fl (35.1-43.9); Red Blood Count 2.82 M/mm3 (4.6-6.2); White Blood Count 5.3 K/mm3 (4.4-11.0)
[2023-12-07 19:39] LABS: Anion Gap 3 (5-15); BUN 39 mg/dL (7-18); BUN/Creat Ratio 8.9 RATIO (10-20); Calcium,Total 7.7 mg/dL (8.5-10.1); Chloride 113 mmol/L (98-107); Creatinine, Serum 4.39 mg/dL (0.70-1.30); EST Glomerular Filtration Rate 15 mL/min (>60); Est Glom Filt Rate - Afr Amer 18 mL/min (>60); Estimated Creatinine Clearance 21.05 ml/min; Glucose 186 mg/dL (74-106); Potassium 4.7 mmol/L (3.5-5.1); Sodium Level 136 mmol/L (136-145)
--- NOTE | 2023-12-07 20:40 | HP.PCM.HOS_ITS ---
[facility] - General General Date of Admission: 12/07/23 Date of Service: 12/07/23 Chief Complaint: Worsening kidney function, Hyperkalemia and Elevated Blood Pressure. HPI Narrative REGINALDO CHEN, is a 53 M with a past medical history of essential hypertension; on Lasix, lisinopril and nadolol, hyperlipidemia, obesity; with BMI of 31.2 this admission, diabetes mellitus type 1.5; of unknown control after severe bout of pancreatitis, history of colon cancer; status post Left hemicolectomy (2013) with chronic port in left upper chest in place, seizure disorder; on carbamazepine, Sezary disease, history of tobacco abuse (quit ~20 years ago), hi story of alcohol abuse, fatty liver, chronic hepatitis C; with gastric and splenic varices without bleeding, history of appendectomy, asthma, trigeminal neuralgia, history of syncope, history of vertigo, depression, osteoarthritis and chronic kidney disease; stage IV with associated anemia followed by Dr. Rm of the nephrology service who presents to [facility] ER complaining of worsening kidney function, hyperkalemia on recent labs and persistently elevated blood pressure. Mr. Chen reports he was informed that he had worsening kidney function with an elevated serum creatinine of 4.57 mg/dL (up from his baseline of approximately 3.23 mg/dL) along with new acute hyperkal emia of 5.7 mmol/L (up from his baseline of approximately 4.8 mmol/L) upon routine lab testing done as an outpatient earlier today. He goes on to state that he has been taking his 40 mg Lasix tablet twice daily after breaking it in half along with his normal dose of lisinopril but he has noticed his blood pressure has been persistently elevated in the ~200/100 mmHg range with associated lightheadedness that is made worse while standing and is better when lying down. He denies other recent illness, recent medication changes, hematuria, dysuria, urinary frequency or hesitancy. He also denies related fever, chills, nausea or vomiting. In the ER he was diagnosed with PEDRO LUIS in the setting of CKD; stage IV with Hyperkalemia complicated by hypertensive urgency and he was then admitted to the PCU for ongoing care for a stay that is expected to be greater than 48 hours. [facility] Medical History Arthritis Asthma Carpal tunnel syndrome Depressive disorder Fatty liver Former smoker GERD (gastroesophageal reflux disease) Hepatitis C High cholesterol History of alcohol abuse History of colon cancer History of echocardiogram History of edema History of pain when walking History of stress test Hx of vertigo Leg cramps Obesity Pancreatitis portacath placement Restless legs Seizure disorder Sezary disease Syncope Therapeutic drug monitoring Trigeminal nerve disorder Wears glasses Home Medications cholecalciferol (vitamin D3) 25 mcg (1,000 unit) capsule 1,000 unit PO DAILY supplement 10/10/13 [History Last Taken 11/13/15] sertraline 100 mg tablet 100 mg PO DAILY depression 07/18/14 [History Last Taken 11/13/15] multivitamin with folic acid 400 mcg tablet 1 tab PO DAILY supplement 10/21/14 [History Last Taken 11/13/15] rosuvastatin 40 mg tablet 40 mg PO DAILY cholesterol 11/24/16 [History Last Taken Unknown] fish oil-dha-epa 1,200 mg-144 mg-216 mg capsule 1 each PO DAILY supplement 11/14/20 [History Last Taken Unknown] lisinopril 40 mg tablet 40 mg PO QHS blood pressure 05/20/21 [History Last Taken 08/02/23] insulin glargine 100 unit/mL (3 mL) subcutaneous pen (Basaglar KwikPen U-100 Insulin) 25 unit subcut .QAM & HS diabetes 02/03/23 [History Last Taken Unknown] insulin lispro 100 unit/mL subcutaneous pen (Admelog SoloStar U-100 Insulin lispro) 30 unit subcut TID blood glucose 02/03/23 [History Last Taken Unknown] furosemide 20 mg tablet 10 mg PO Q12H water pill 04/27/23 [History Last Taken Unknown] carbamazepine 200 mg tablet 600 mg (3 x 200 mg) PO BID #180 tabs 07/12/23 [Rx Last Taken Unknown] pantoprazole 20 mg tablet,delayed release 40 mg (2 x 20 mg) PO Q12H #60 tabs 08/02/23 [Rx Last Taken Unknown] albuterol sulfate 90 mcg/actuation aerosol inhaler (Ventolin HFA) 1 - 2 puff inhalation Q4H PRN PRN Wheezing #1 inh 10/16/23 [Rx Last Taken Unknown] lisinopril 10 mg tablet 10 mg PO .QAM blood pressure 12/07/23 [History Last Taken Unknown] nadolol 20 mg tablet 40 mg PO .bid blood pressure 12/07/23 [History Last Taken Unknown] nadolol 40 mg tablet 40 mg PO BID blood pressure 12/07/23 [History Last Taken Unknown] gemfibrozil 600 mg tablet 600 mg PO BID pancreatitis prevention 12/08/23 [History Last Taken 12/07/23 10:00] Allergy/AdvReac Type Severity Reaction Status Date / Time doxazosin [From Cardura] Allergy Severe Bleeding Verified 12/07/23 18:41 erythromycin base Allergy Severe Hives Verified 12/07/23 18:41 loratadine [From Claritin] Allergy Severe Rash Verified 12/07/23 18:41 Family History Grandmother Cervical cancer Diabetes Hypertension Trigeminal neuralgia Mother Uterine cancer Arthritis Diabetes Hypertension Grandfather Heart disease Arthritis Diabetes Hypertension Unknown Diabetes Arthritis Father Arthritis Diabetes Hypertension Sister Diabetes Hypertension Uncle CVA (cerebral vascular accident) Aunt Cerebral aneurysm Surgical History H/O left hemicolectomy Hx of appendectomy Social History Smoking Status: Former smoker Tobacco: How many years used: 20 how long ago did patient quit smoking: quit 2003 second hand exposure: No alcohol intake: former details: quit 2003 substance use type: former substance user Date of last use: Used Marijuana since he was a teenager ROS ROS Narrative Review of systems: General: Patient denies fevers or chills. HENT: Denies headache, denies stuffy nose, denies sore throat EYES: Denies changes in vision or discharge from eyes. Resp: Denies cough, denies shortness of breath Cardiac: Denies chest pain, palpitations or heart racing. GI: Denies abdominal pain, denies changes in bowel, patient denies nausea or vomiting. : Denies changes in urination Extremity: Denies swelling Musculoskeletal: Patient denies arthralgias or myalgias. Neuro: Patient admits to headache corresponding with elevated blood pressure made worse with standing and better lying down as per HPI. He denies focal neurologic weakness or paresthesias. Heme: Denies any bleeding or bruising Skin: Denies rashes Psychiatric: No complaints voiced related to uncontrolled depression or anxiety. Endocrine: No polyuria, polydipsia or polyphagia The rest of the 14 point ROS was negative except for positives in HPI. Vital Signs Vital Signs Vital Signs: 12/07/23 18:39 12/07/23 18:39 12/07/23 19:08 Temperature 96.9 F L 96.9 F L Temperature Source Temporal Temporal Pulse Rate 77 77 Respiratory Rate 16 16 Respiratory Pattern Normal Blood Pressure 143/78 H 143/78 H Blood Pressure Mean 99 99 Pulse Ox 100 100 Oxygen Delivery Method Room Air Room Air Weight Weight: 205 lb 4.8 oz Body Mass Index (BMI) 31.1 Physical Exam Const alert, oriented x3, no apparent distress, average body habitus and healthy appearing General Appearance: cooperative HEENT normocephalic, head/scalp atraumatic, hearing grossly normal bilaterally and moist oral mucous membranes Eyes PERRL and EOMs intact bilaterally Neck no lymphadenopathy and supple Resp normal respiratory effort, no retractions, no use of accessory muscles and clear to auscultation bilaterally Cardio regular rate and regular rhythm Cardio Narrative: Port present on Left upper chest. GI normal to inspection, nondistended, normoactive bowel sounds, soft to palpation, non-tender and non-distended Extremity normal to inspection and full ROM Skin Skin Narrative: Negative for rash or jaundice. Neuro oriented x3, CN's II-XII intact bilaterally, moves all extremities and no focal motor deficits Sensorium / Orientation: awake, alert, oriented to person, oriented to place and oriented to time Speech: speech normal Psych affect normal Results Medical Records Data Attestation: I reviewed the patient's medical records Lab / Micro Data Attestation: I reviewed the patient's lab results. 12/07/23 19:02 12/07/23 19:02 Labs: Laboratory Results - last 24 hr 12/07/23 19:02: WBC 5.3, RBC 2.82 L, Hgb 8.6 L, Hct 25.2 L, MCV 89.4, MCH 30.5, MCHC 34.1, RDW Std Deviation 43.9, RDW Coeff of Ever 13.5, Plt Count 202, MPV 10.5, Immature Gran % (Auto) 0.600, Neut % (Auto) 61.2, Lymph % (Auto) 31.0, [place] % (Auto) 5.3, Eos % (Auto) 1.3, Baso % (Auto) 0.6, Absolute Neuts (auto) 3.2, Absolute Lymphs (auto) 1.63, Nucleated RBC % 0, Sodium 136, Potassium 4.7, Chloride 113 H, Carbon Dioxide 20.0 L, Anion Gap 3 L, BUN 39 H, Creatinine 4.39 H, Estim Creat Clear Calc 21.05, Est GFR (MDRD) Af Amer 18 L, Est GFR (MDRD) Non-Af 15 L, BUN/Creatinine Ratio 8.9 L, Glucose 186 H, Calcium 7.7 L Assessment & Plan Assessment/Plan (1) Acute kidney injury: (2) Chronic kidney disease, stage IV (severe): (3) Hypertensive urgency: PLAN: Plan 1. PEDRO LUIS in the setting of CKD; stage IV with Hyperkalemia followed by Dr. Rm of the nephrology service - Admit to PCU. Give normal saline IV fluid and hold Lasix, lisinopril and other potentially nephrotoxic agents. Check renal ultrasound in a.m. to evaluate for evidence of obstruction. Finally, we will consult Dr. Rm of the nephrology service sees patient on rounds in the a.m. further recommendations with help appreciated in advance. 2. Hypertensive urgency; with blood pressure of 200/100 mmHg present on admission in spite of being on on Lasix, lisinopril and nadolol with suspected Adverse Drug Reaction to ANNA and Lasix causing #1 - Avoid potentially nephrotoxic agents. Give IV hydralazine for systolic blood pressure greater than 160 mmHg. 3. Hyperlipidemia - Resume statin. 4. Obesity; with BMI of 31.2 this admission - Weight loss will be recommended. Check TSH in light of obesity and #2. 5. Diabetes mellitus type 1.5; of unknown control after severe bout of pancreatitis - Stable. ADA/renal diet. FSBS q. AC/HS plus SSI. Check HgbA1c to objectively evaluate quality of diabetic control in light of #1. 6. History of colon cancer; status post Left hemicolectomy (2013) with chronic port in left upper chest in place - Noted. 7. Seizure disorder; on carbamazepine - Resume carbamazepine as previous. Give IV Ativan as needed for breakthrough seizure activity. 8. Sezary disease - Noted. 9. History of tobacco abuse (quit ~20 years ago) - Noted. 10. History of alcohol abuse - Noted. 11. Fatty liver disease - Stable. 12. Chronic hepatitis C; with history of gastric and splenic varices without bleeding - Noted. 13. History of appendectomy - Noted. 14. Asthma - Stable with no evidence of flare. Continue as needed nebulizers. 15. Trigeminal neuralgia - Stable. 16. History of syncope - Noted. 17. History of vertigo - Stable. 18. Depression - Resume home regimen as previous. 19. Osteoarthritis - Give Tylenol as needed. 20. DVT prophylaxis - Heparin 5,000 units SQ 3 times daily. Total time: Approximately 55 minutes. Charges/Coding Visit Charges Inpatient E&M: 31379 Init Hosp L2
[2023-12-07 22:00] VITALS: BP 149/77; PULSE 82; RESP 18; TEMP 37; O2SAT 99
[2023-12-07 22:11] VITALS: BMI 30.5
[2023-12-07 22:23] VITALS: O2SAT 100
[2023-12-07] MEDS: carBAMazepine 200 MG Tablet 600 MG PO (22:39)
[2023-12-07] MEDS: Pantoprazole Sodium 40 MG Tablet PO (22:39)
[2023-12-07] MEDS: Nadolol 20 MG Tablet PO (22:39)
[2023-12-07] MEDS: Acetaminophen 325 MG Tablet 650 MG PO (22:41)
[2023-12-07] MEDS: 0.9% Normal Saline (1000mL) 1,000 ML 100 ML IV (22:42)
[2023-12-07] MEDS: Heparin Injection (Vial) 5,000 UNIT/ML VIAL 5000 UNIT SC (22:43)
[2023-12-07] MEDS: Insulin Glargine-YFGN 100 UNIT/ML Pen 15 UNIT SC (23:05)
[2023-12-07 23:15] VITALS: BP 202/95; PULSE 67; RESP 18; TEMP 35.9; O2SAT 100
[2023-12-07 23:18] LABS: Bedside Glucose 82 mg/dL (74-106)
[2023-12-08] VITALS (8 sets, daily range): BP systolic 171–199; BP diastolic 84–97; PULSE 65–72; RESP 15–18; TEMP 36.1–36.7; O2SAT 93–100; BMI 30.5
[2023-12-08] MEDS: Sertraline 100 MG Tablet PO ×2 (00:24→22:22)
[2023-12-08] MEDS: Atorvastatin Calcium 80 MG Tablet PO ×2 (00:24→22:22)
[2023-12-08] MEDS: hydrALAZINE 20 MG/ML Vial 10 MG IV (00:25)
--- NOTE | 2023-12-08 00:42 | US_ITS ---
STUDY: RENAL ULTRASOUND - COMPLETE REASON FOR EXAM: Male, 53 years old. PEDRO LUIS on CKD stage IV with hypertensive urgency TECHNIQUE: Ultrasound evaluation of the kidneys was performed with real-time and static buck-scale imaging. COMPARISON: None. FINDINGS: RIGHT KIDNEY: Normal location of the right kidney, which is normal in size. The right kidney measures 10.8 cm x 6.2 cm x 5.9 cm. There is a normal cortex of the right kidney. The renal cortex measures 1.5 cm. There is a 1.3 cm x 1.2 cm x 1 cm cyst. There are no right renal calculi. There is no right hydronephrosis. DISTAL RIGHT URETER: There is non-visualization of the distal right ureter. There is no demonstrated right ureterovesical junction calculus. There is a visualized right ureteral jet. LEFT KIDNEY: Normal location of the left kidney, which is normal in size. The left kidney measures 12.7 cm x 6.4 cm x 5.8 cm. There is a normal cortex of the left kidney. The renal cortex measures 1.6 cm. There is a 2.4 cm x 1.9 cm x 2 cm cyst. A second cyst is seen measuring 2.1 cm x 2 cm x 1.8 cm. There are no left renal calculi. There is no left hydronephrosis. DISTAL LEFT URETER: There is non-visualization of the distal left ureter. There is no demonstrated left ureterovesical junction calculus. There is a visualized left ureteral jet. AORTA: There is no elongation or tortuosity of the abdominal aorta. There is no demonstrated aneurysm.. I.V.C.: The IVC is patent. BLADDER: The distended urinary bladder has a volume of 258 ml. There is a normal wall thickness of the distended urinary bladder. There is no demonstrated mass within the urinary bladder. There are no demonstrated bladder calculi. US/Kidney and Bladder IMPRESSION: Bilateral simple benign-appearing renal cysts. Electronically Signed: Steve Holguin MD at 12:27 EDT ,
[2023-12-08 03:06] LABS: Bedside Glucose 138 mg/dL (74-106)
[2023-12-08] MEDS: Morphine 2 MG/ML Syringe IV (03:20)
[2023-12-08] MEDS: hydrALAZINE 20 MG/ML Vial 5 MG IV (03:21)
[2023-12-08] MEDS: 0.9% Saline Lock 10 ML Syringe IV (03:21)
[2023-12-08] MEDS: Ondansetron 4 MG/2 ML Vial IV (03:29)
[2023-12-08] MEDS: Nadolol 20 MG Tablet PO ×2 (06:26→22:19)
[2023-12-08] MEDS: Heparin Injection (Vial) 5,000 UNIT/ML VIAL 5000 UNIT SC ×3 (06:26→22:21)
[2023-12-08] MEDS: Acetaminophen 325 MG Tablet 650 MG PO ×2 (06:26→17:53)
[2023-12-08] MEDS: proMETHazine 25 MG/ML Syringe IM (07:05)
[2023-12-08 07:49] LABS: Absolute Neutrophil Count 3.7 X10^3/uL (2.0-7.7); Basophil# 0.02 X10^3/uL; Basophil% 0.4 % (0-1); Eosinophil# 0.06 X10^3/uL; Eosinophils% 1.1 % (0-5); Hematocrit 26.1 % (40-54); Hemoglobin 8.8 g/dL (13.0-16.5); Lymphocyte % 25.6 % (19-41); Mean Corp Hgb Conc 33.7 g/dL (32-36); Mean Corpuscular Hgb 30.1 pg (27.0-32.0); Mean Corpuscular Volume 89.4 fL (80-94); Monocyte% 3.7 % (0-10); NRBC Flagged by Analyzer 0 % (0-5); Neutrophil # 3.74 X10^3/uL (2.7-7.7); Neutrophil % 68.3 % (47-70); Platelet Count 176 K/mm3 (150-450); RBC Distribution Width CV 13.7 % (11.6-14.6); RBC Distribution Width SD 44.6 fl (35.1-43.9); Red Blood Count 2.92 M/mm3 (4.6-6.2); White Blood Count 5.5 K/mm3 (4.4-11.0)
[2023-12-08 08:30] LABS: Hemoglobin A1c 7.3 % (3.8-5.6)
[2023-12-08 08:45] LABS: ALB/GLOB Ratio 0.6 RATIO (0.9-2.4); AST(SGOT) 8 U/L (15-37); Alanine Aminotransfer ALT/SGPT 10 U/L (16-61); Albumin, Serum 2.3 g/dL (3.2-5.0); Alkaline Phosphatase 75 U/L (45-117); Anion Gap 5 (5-15); BUN 35 mg/dL (7-18); BUN/Creat Ratio 8.9 RATIO (10-20); Calcium,Total 7.8 mg/dL (8.5-10.1); Chloride 112 mmol/L (98-107); Cholesterol 225 mg/dL (200); Creatinine, Serum 3.92 mg/dL (0.70-1.30); EST Glomerular Filtration Rate 17 mL/min (>60); Est Glom Filt Rate - Afr Amer 21 mL/min (>60); Estimated Creatinine Clearance 23.33 ml/min; Globulin 3.6 g/dL (2.2-4.2); Glucose 216 mg/dL (74-106); High Density Lipoprotein 37 mg/dL; Magnesium 1.5 mg/dL (1.6-2.6); Phosphorus 3.8 mg/dL (2.5-4.9); Potassium 4.9 mmol/L (3.5-5.1); Protein, Total 5.9 g/dL (6.4-8.2); Sodium Level 135 mmol/L (136-145); Thyroid Stim Hormone (TSH) 0.34 uIU/mL (0.358-3.74); Triglycerides 439 mg/dL
[2023-12-08] MEDS: Insulin Lispro 100 UNIT/ML INSULN.PEN 30 UNIT SC ×2 (08:54→12:55)
[2023-12-08] MEDS: Insulin Lispro 100 UNIT/ML INSULN.PEN SC (08:55)
[2023-12-08] MEDS: 0.9% Normal Saline (1000mL) 1,000 ML 100 ML IV (08:55)
[2023-12-08] MEDS: Insulin Glargine-YFGN 100 UNIT/ML Pen 15 UNIT SC (08:55)
[2023-12-08] MEDS: carBAMazepine 200 MG Tablet 600 MG PO ×2 (09:15→22:23)
[2023-12-08] MEDS: Pantoprazole Sodium 40 MG Tablet PO ×2 (09:15→22:22)
[2023-12-08] MEDS: ARIPiprazole 2 MG Tablet PO (09:15)
[2023-12-08] MEDS: Cholecalciferol (VIT D3) 25 MCG TABLET (1,000 UNITS) PO (09:15)
[2023-12-08] MEDS: Omega-3 Acid Ethyl Esters 1 GM Capsule PO (09:15)
[2023-12-08] MEDS: Multivitamins,Therapeutic Tablet 1 TABLET PO (09:15)
--- NOTE | 2023-12-08 11:26 | PCM.CONS.R ---
Assessment & Plan Assessment/Plan (1) Acute kidney injury: (2) Hypertensive urgency: (3) Hyperkalemia: (4) Chronic kidney disease, stage IV (severe): PLAN: Plan This is a very pleasant 53-year-old male with past medical history significant for CKD stage IV with proteinuria (07/2023 Urine protein/creatinine ratio 12.8gm), diabetes mellitus type 2, hypertension, GERD, anxiety and depression, pancreatitis, history of right-sided colon cancer stage IIIa status post colectomy July 2014 for invasive adenocarcinoma followed by Dr. Ibarra (had 12 cycles of FOLFOX September 2014 to February 2015), history of anemia of chronic disease, esophageal varices (followed by Dr. Warren) who presented to the emergency room yesterday at direction of primary care for elevated creatinine and hyperkalemia. Nephrology consulted in view of rising creatinine and mild hyperkalemia. Patient has a known history of chronic kidney disease stage IV, followed by Dr. Rm in [place] office. Baseline creatinine early 2022 have been ranging around 1.8 to 2.1 mg/dL. There has been some possible noted progression of CKD the latter part of 2022 with baseline creatinine now around 2.5-2.7 mg/dL. Also to note in July 2023 urine microalbumin/creatinine ratio 10 g, urine protein creatinine ratio 12.8 g. Recent lab work on November 29 creatinine 4.40, potassium 4.8. Yesterday patient's creatinine was 4.57 mg/dL, potassium 5.7. Patient was started on IV fluids (patient was not given anything for mild hyperkalemia, lisinopril was put on hold yesterday) and today renal function improved, creatinine is 3.92 mg/dL, K+ 4.9. Quite possibly PEDRO LUIS secondary to component of overdiuresis along with slow intentional weight loss. Mild hyperkalemia possibly from PEDRO LUIS, dietary indiscretion and lisinopril. Patient does not need any renal placement therapy, renal function is improving, no hyperkalemia or acidemia and patient is nonoliguric. Recommend continuing on IV fluids for another day but will decrease IV fluid rate. Blood pressures are elevated therefore we are decreasing IV fluid rate and starting hydralazine with holding parameters. Continue off furosemide for now and possibly even at discharge. I did review with patient appropriate amount of fluid intake per day. Reviewing potassium trends over the past year or so for most part potassium essentially normal, because of significant proteinuria would like for patient to be back on ANNA inhibitor eventually once renal function leveled off near baseline. I did review this with patient and recommend for him to follow low K+ diet in hospital and at home. Patient voiced understanding. Patient does have an appointment with us in about a month in the [place] office. Renal ultrasound ordered and is pending. Will check a UA. Further orders forthcoming as hospitalization evolves, thank you for allowing us to participate in the care of Mr. Chen. HPI Consult Data Date of Consult: 12/08/23 HPI Narrative HPI Narrative: REGINALDO CHEN, is a 53 M with past medical history significant for CKD stage IV with proteinuria, diabetes mellitus type 2, hypertension, GERD, anxiety and depression, pancreatitis, history of right-sided colon cancer stage IIIa status post colectomy July 2014 for invasive adenocarcinoma followed by Dr. Ibarra (had 12 cycles of FOLFOX September 2014 to February 2015), history of anemia of chronic disease, esophageal varices who presented emergency room yesterday under the direction of primary care as he was noted to have elevated creatinine above baseline in addition to mild hyperkalemia. Patient was admitted for further evaluation and treatment. Nephrology consulted as patient does have history of CKD, now with PEDRO LUIS and hyperkalemia. Patient reports that since June 2023 he has had slow unintentional weight loss of around 23 pounds. He denies any recent nausea, vomiting or diarrhea. Denies any urinary habitus changes. Denies dysuria or hematuria. No NSAIDs. Patient does report approximately 3 years ago he did have episode of mild hyperkalemia and since then has been trying to be mindful with high potassium foods but of recent had been eating potatoes and watermelon. Patient does report that he takes Lasix 20 mg twice daily but feels that when he takes Lasix 20 mg in the morning he develops cramping and feels dry therefore he has been taking 10 mg in the morning until 10 mg in the evening. No other changes to medications of recent. No recent antibiotics. Denies any edema. PENDING SALE TO [facility] Medical History Arthritis Asthma Carpal tunnel syndrome Depressive disorder Fatty liver Former smoker GERD (gastroesophageal reflux disease) Hepatitis C High cholesterol History of alcohol abuse History of colon cancer History of echocardiogram History of edema History of pain when walking History of stress test Hx of vertigo Leg cramps Obesity Pancreatitis portacath placement Restless legs Seizure disorder Sezary disease Syncope Therapeutic drug monitoring Trigeminal nerve disorder Wears glasses Home Medications cholecalciferol (vitamin D3) 25 mcg (1,000 unit) capsule 1,000 unit PO DAILY supplement 10/10/13 [History Last Taken 11/13/15] sertraline 100 mg tablet 100 mg PO DAILY depression 07/18/14 [History Last Taken 11/13/15] multivitamin with folic acid 400 mcg tablet 1 tab PO DAILY supplement 10/21/14 [History Last Taken 11/13/15] rosuvastatin 40 mg tablet 40 mg PO DAILY cholesterol 11/24/16 [History Last Taken Unknown] fish oil-dha-epa 1,200 mg-144 mg-216 mg capsule 1 each PO DAILY supplement 11/14/20 [History Last Taken Unknown] lisinopril 40 mg tablet 40 mg PO QHS blood pressure 05/20/21 [History Last Taken 08/02/23] insulin glargine 100 unit/mL (3 mL) subcutaneous pen (Basaglar KwikPen U-100 Insulin) 25 unit subcut .QAM & HS diabetes 02/03/23 [History Last Taken Unknown] insulin lispro 100 unit/mL subcutaneous pen (Admelog SoloStar U-100 Insulin lispro) 30 unit subcut TID blood glucose 02/03/23 [History Last Taken Unknown] furosemide 20 mg tablet 10 mg PO Q12H water pill 04/27/23 [History Last Taken Unknown] carbamazepine 200 mg tablet 600 mg (3 x 200 mg) PO BID #180 tabs 07/12/23 [Rx Last Taken Unknown] pantoprazole 20 mg tablet,delayed release 40 mg (2 x 20 mg) PO Q12H #60 tabs 08/02/23 [Rx Last Taken Unknown] albuterol sulfate 90 mcg/actuation aerosol inhaler (Ventolin HFA) 1 - 2 puff inhalation Q4H PRN PRN Wheezing #1 inh 10/16/23 [Rx Last Taken Unknown] lisinopril 10 mg tablet 10 mg PO .QAM blood pressure 12/07/23 [History Last Taken Unknown] nadolol 20 mg tablet 40 mg PO .bid blood pressure 12/07/23 [History Last Taken Unknown] nadolol 40 mg tablet 40 mg PO BID blood pressure 12/07/23 [History Last Taken Unknown] gemfibrozil 600 mg tablet 600 mg PO BID pancreatitis prevention 12/08/23 [History Last Taken 12/07/23 10:00] Allergy/AdvReac Type Severity Reaction Status Date / Time doxazosin [From Cardura] Allergy Severe Bleeding Verified 12/07/23 18:41 erythromycin base Allergy Severe Hives Verified 12/07/23 18:41 loratadine [From Claritin] Allergy Severe Rash Verified 12/07/23 18:41 Family History Grandmother Cervical cancer Diabetes Hypertension Trigeminal neuralgia Mother Uterine cancer Arthritis Diabetes Hypertension Grandfather Heart disease Arthritis Diabetes Hypertension Unknown Diabetes Arthritis Father Arthritis Diabetes Hypertension Sister Diabetes Hypertension Uncle CVA (cerebral vascular accident) Aunt Cerebral aneurysm Surgical History H/O left hemicolectomy Hx of appendectomy Social History Smoking Status: Former smoker Tobacco: How many years used: 20 how long ago did patient quit smoking: quit 2003 second hand exposure: No alcohol intake: former details: quit 2003 substance use type: former substance user Date of last use: Used Marijuana since he was a teenager ROS ROS Narrative As in HPI and past medical history Physical Exam Narrative Alert and oriented x 3, no apparent distress S1, S2, RRR Lung sounds clear anteriorly and posteriorly. No wheezes rhonchi or rales noted Abdomen soft, nontender No edema Lab / Micro Data 12/08/23 07:36 12/08/23 07:36 Labs: Laboratory Results - last 24 hr 12/07/23 19:02: WBC 5.3, RBC 2.82 L, Hgb 8.6 L, Hct 25.2 L, MCV 89.4, MCH 30.5, MCHC 34.1, RDW Std Deviation 43.9, RDW Coeff of Ever 13.5, Plt Count 202, MPV 10.5, Immature Gran % (Auto) 0.600, Neut % (Auto) 61.2, Lymph % (Auto) 31.0, [place] % (Auto) 5.3, Eos % (Auto) 1.3, Baso % (Auto) 0.6, Absolute Neuts (auto) 3.2, Absolute Lymphs (auto) 1.63, Nucleated RBC % 0, Sodium 136, Potassium 4.7, Chloride 113 H, Carbon Dioxide 20.0 L, Anion Gap 3 L, BUN 39 H, Creatinine 4.39 H, Estim Creat Clear Calc 21.05, Est GFR (MDRD) Af Amer 18 L, Est GFR (MDRD) Non-Af 15 L, BUN/Creatinine Ratio 8.9 L, Glucose 186 H, Calcium 7.7 L 12/07/23 22:54: POC Glucose 82 12/08/23 02:48: POC Glucose 138 H 12/08/23 07:36: WBC 5.5, RBC 2.92 L, Hgb 8.8 L, Hct 26.1 L, MCV 89.4, MCH 30.1, MCHC 33.7, RDW Std Deviation 44.6 H, RDW Coeff of Ever 13.7, Plt Count 176, MPV 10.0, Immature Gran % (Auto) 0.900, Neut % (Auto) 68.3, Lymph % (Auto) 25.6, [place] % (Auto) 3.7, Eos % (Auto) 1.1, Baso % (Auto) 0.4, Absolute Neuts (auto) 3.7, Absolute Lymphs (auto) 1.40, Nucleated RBC % 0, Sodium 135 L, Potassium 4.9, Chloride 112 H, Carbon Dioxide 18.0 L, Anion Gap 5, BUN 35 H, Creatinine 3.92 H, Estim Creat Clear Calc 23.33, Est GFR (MDRD) Af Amer 21 L, Est GFR (MDRD) Non-Af 17 L, BUN/Creatinine Ratio 8.9 L, Glucose 216 H, Hemoglobin A1c 7.3 H, Calcium 7.8 L, Phosphorus 3.8, Magnesium 1.5 L, Total Bilirubin 0.20, AST 8 L, ALT 10 L, Alkaline Phosphatase 75, Total Protein 5.9 L, Albumin 2.3 L, Globulin 3.6, Albumin/Globulin Ratio 0.6 L, Triglycerides 439 H, Cholesterol 225 H, LDL Cholesterol TNP, VLDL Cholesterol TNP, HDL Cholesterol 37 L, TSH 0.34 L
[2023-12-08 12:04] LABS: Bedside Glucose 109 mg/dL (74-106)
--- NOTE | 2023-12-08 12:10 | CASEMGMT ---
RN CM Face to Face with patient for initial transition planning/care coordination assessment. RN CM introduced self and role at [facility]. Patient lying in bed, alert and oriented, mother at bedside. Patient willing to participate in assessment and is able to answer all questions appropriately. Care providers, pharmacy, and demographics verified. PCP: Jose Specialists: Stacey, oncologist; Jag, stone sandblaster; , documentation billing clerk; Preferred Pharmacy: [facility] Insurance: [id number] Prescription Benefit: yes Living Will/HPOA: yes, mother Elizabeth Chen LNOK: mother Living Arrangements: Patient lives with mother in a single story home with 2 steps to enter the home. Patient is indepnedent at home. Transportation: self, mother DME/HHC: Patient has walker at home. No previous HHC or SNF Patient wishes to discharge home, denies need for home health at this time. Patient states he has no further needs or concerns at this time. CM to follow for discharge planning needs that may arise. Disposition Plan: Patient to discharge home with family support and follow-up plans in place. Brea VASQUEZ, RN, CM
[2023-12-08] MEDS: hydrALAZINE 50 MG Tablet PO ×2 (12:58→22:20)
--- NOTE | 2023-12-08 16:08 | PCM.PN.HOSP ---
Reason for Visit Reason for Visit: Diagnoses Hypertensive urgency (12/07/23) Acute kidney failure, unspecified (12/07/23) Chronic kidney disease, stage 4 (severe) (12/07/23) Subjective Subjective Patient was seen and examined today, I talked with nephrology about his care. Patient's creatinine is improved, his potassium is normal. I talked to nephrology about placing him back on lisinopril and she thought that this was okay. Objective Data Objective Data Vital Signs: Vital Signs Temp Pulse Resp BP Pulse Ox O2 Del Method 97.3 F L 69 16 182/87 H 99 Room Air 12/08/23 12:00 12/08/23 12:58 12/08/23 12:00 12/08/23 12:00 12/08/23 12:00 12/08/23 12:00 Oxygen Delivery Method Room Air Weight: 91.1 kg Body Mass Index (BMI) 30.5 Intake & Output: Intake and Output for Last 24 Hours 12/06/23 12/07/23 12/08/23 23:59 23:59 23:59 Intake Total 2138.34 / 2138.34 Balance 2138.34 / 2138.34 Lab / Micro Data 12/08/23 07:36 12/08/23 07:36 Labs: Laboratory Results - last 24 hr 12/07/23 19:02: WBC 5.3, RBC 2.82 L, Hgb 8.6 L, Hct 25.2 L, MCV 89.4, MCH 30.5, MCHC 34.1, RDW Std Deviation 43.9, RDW Coeff of Ever 13.5, Plt Count 202, MPV 10.5, Immature Gran % (Auto) 0.600, Neut % (Auto) 61.2, Lymph % (Auto) 31.0, [place] % (Auto) 5.3, Eos % (Auto) 1.3, Baso % (Auto) 0.6, Absolute Neuts (auto) 3.2, Absolute Lymphs (auto) 1.63, Nucleated RBC % 0, Sodium 136, Potassium 4.7, Chloride 113 H, Carbon Dioxide 20.0 L, Anion Gap 3 L, BUN 39 H, Creatinine 4.39 H, Estim Creat Clear Calc 21.05, Est GFR (MDRD) Af Amer 18 L, Est GFR (MDRD) Non-Af 15 L, BUN/Creatinine Ratio 8.9 L, Glucose 186 H, Calcium 7.7 L 12/07/23 22:54: POC Glucose 82 12/08/23 02:48: POC Glucose 138 H 12/08/23 07:36: WBC 5.5, RBC 2.92 L, Hgb 8.8 L, Hct 26.1 L, MCV 89.4, MCH 30.1, MCHC 33.7, RDW Std Deviation 44.6 H, RDW Coeff of Ever 13.7, Plt Count 176, MPV 10.0, Immature Gran % (Auto) 0.900, Neut % (Auto) 68.3, Lymph % (Auto) 25.6, [place] % (Auto) 3.7, Eos % (Auto) 1.1, Baso % (Auto) 0.4, Absolute Neuts (auto) 3.7, Absolute Lymphs (auto) 1.40, Nucleated RBC % 0, Sodium 135 L, Potassium 4.9, Chloride 112 H, Carbon Dioxide 18.0 L, Anion Gap 5, BUN 35 H, Creatinine 3.92 H, Estim Creat Clear Calc 23.33, Est GFR (MDRD) Af Amer 21 L, Est GFR (MDRD) Non-Af 17 L, BUN/Creatinine Ratio 8.9 L, Glucose 216 H, Hemoglobin A1c 7.3 H, Calcium 7.8 L, Phosphorus 3.8, Magnesium 1.5 L, Total Bilirubin 0.20, AST 8 L, ALT 10 L, Alkaline Phosphatase 75, Total Protein 5.9 L, Albumin 2.3 L, Globulin 3.6, Albumin/Globulin Ratio 0.6 L, Triglycerides 439 H, Cholesterol 225 H, LDL Cholesterol TNP, VLDL Cholesterol TNP, HDL Cholesterol 37 L, TSH 0.34 L 12/08/23 11:47: POC Glucose 109 H Radiography Diagnostic Testing: Radiology Impression Renal Ultrasound 12/08/23 00:42 IMPRESSION: Bilateral simple benign-appearing renal cysts. Electronically Signed: Steve Holguin MD at 12:27 EDT , Physical Exam Const alert, oriented x3, no apparent distress and healthy appearing General Appearance: cooperative, well kempt and well developed Orientation / Consciousness: awake, oriented to person, oriented to place and oriented to time HEENT normocephalic and moist oral mucous membranes Eyes PERRL, EOMs intact bilaterally and conjunctivae normal Neck supple, no JVD, thyroid normal and no carotid bruits General: trachea midline Resp normal respiratory effort and clear to auscultation bilaterally Auscultation: Negative for rales, rhonchi or wheezes Cardio regular rate, regular rhythm, no murmurs, no rub and no gallops GI normal to inspection, nondistended, normoactive bowel sounds, soft to palpation, non-tender and non-distended Extremity no clubbing, cyanosis or edema Skin no rashes or lesions noted General Skin Exam: no breakdown Neuro oriented x3, CN's II-XII intact bilaterally, no focal motor deficits and no sensory deficits noted Sensorium / Orientation: awake and alert Speech: speech normal Psych affect normal Assessment & Plan Assessment/Plan (1) Hyperkalemia: PLAN: Plan 1. Acute kidney injury-patient's kidney function is improved with administration of fluids, continue fluids #2 hyperkalemia-in reviewing the patient's medical records, this appears to be isolated, labs will be monitored, patient's potassium is normal presently #3 chronic kidney disease stage IV-patient is being followed by nephrology, complicates care, management, recovery, and prognosis #4 hypertensive urgency-patient's blood pressure will be monitored, blood pressure medicines will be adjusted if needed Total clinical time spent by myself addressing the patient's medical issues, reviewing all of his data, and collaborating with patient's care team: 35 minutes Charges/Coding Visit Charges Inpatient E&M: 08056 Subs Hosp L2
[2023-12-08 17:37] LABS: Bedside Glucose 81 mg/dL (74-106)
[2023-12-08] MEDS: amLODIPine 5 MG Tablet PO (17:51)
[2023-12-08] MEDS: 0.9% Normal Saline (1000mL) 1,000 ML 50 ML IV (17:53)
[2023-12-08 18:07] LABS: Bacteria 0 SEEN /hpf (None Seen); Mucous, Urine 0 SEEN /hpf (<or=2+)
[2023-12-08 18:13] LABS: Color, Urine Yellow (Yellow); Glucose, Dipstick 50 mg/dl (Normal); Ketone-Dipstick Negative (Negative); Leukocyte Esterase-Dipstick Negative /ul (Negative); Nitrite-Dipstick Negative (Negative); Occult Blood-Urine 10 /ul (Negative); Protein-Dipstick 500 mg/dl (Negative); Specific Gravity, Urine 1.015 (1.002-1.030); Urine Bilirubin Dipstick Negative (Negative); Urine Clarity Clear (Clear); Urine Urobilinogen Normal (Normal)
[2023-12-08 18:18] LABS: Red Blood Cells-Urine 0-5 SEEN /hpf (0-5)
[2023-12-08 18:19] LABS: Squamous Epithelial Cells - UA 0 SEEN /hpf (0-5); White Blood Cells 0-5 SEEN /hpf (0-5)
[2023-12-08 22:11] LABS: Bedside Glucose 56 mg/dL (74-106)
[2023-12-08 23:06] LABS: Bedside Glucose 128 mg/dL (74-106)
[2023-12-09] MEDS: Acetaminophen 325 MG Tablet 650 MG PO ×2 (00:43→08:03)
[2023-12-09 05:07] VITALS: BP 179/95; PULSE 66; RESP 18; TEMP 36.1; O2SAT 99
[2023-12-09] MEDS: Heparin Injection (Vial) 5,000 UNIT/ML VIAL 5000 UNIT SC (05:07)
[2023-12-09] MEDS: hydrALAZINE 50 MG Tablet PO (05:07)
[2023-12-09 05:31] LABS: Albumin, Serum 2.2 g/dL (3.2-5.0); BUN 35 mg/dL (7-18); Calcium,Total 7.9 mg/dL (8.5-10.1); Chloride 115 mmol/L (98-107); Creatinine, Serum 3.89 mg/dL (0.70-1.30); EST Glomerular Filtration Rate 17 mL/min (>60); Est Glom Filt Rate - Afr Amer 21 mL/min (>60); Estimated Creatinine Clearance 23.51 ml/min; Glucose 114 mg/dL (74-106); Phosphorus 4.4 mg/dL (2.5-4.9); Potassium 4.5 mmol/L (3.5-5.1); Sodium Level 140 mmol/L (136-145)
[2023-12-09 06:00] VITALS: BMI 30.4
[2023-12-09 07:40] VITALS: O2SAT 98
[2023-12-09] MEDS: Multivitamins,Therapeutic Tablet 1 TABLET PO (08:03)
[2023-12-09] MEDS: Insulin Lispro 100 UNIT/ML INSULN.PEN 30 UNIT SC (08:03)
[2023-12-09] MEDS: Insulin Glargine-YFGN 100 UNIT/ML Pen 15 UNIT SC (08:04)
[2023-12-09] MEDS: Insulin Lispro 100 UNIT/ML INSULN.PEN SC (08:04)
[2023-12-09] MEDS: 0.9% Normal Saline (1000mL) 1,000 ML 50 ML IV (08:14)
[2023-12-09 08:41] LABS: Bedside Glucose 172 mg/dL (74-106)
[2023-12-09 09:48] VITALS: BP 158/80; PULSE 76; RESP 16; TEMP 37; O2SAT 100
[2023-12-09] MEDS: carBAMazepine 200 MG Tablet 600 MG PO (09:54)
[2023-12-09] MEDS: Cholecalciferol (VIT D3) 25 MCG TABLET (1,000 UNITS) PO (09:54)
[2023-12-09] MEDS: Pantoprazole Sodium 40 MG Tablet PO (09:55)
[2023-12-09] MEDS: ARIPiprazole 2 MG Tablet PO (09:56)
[2023-12-09] MEDS: Omega-3 Acid Ethyl Esters 1 GM Capsule PO (09:56)
[2023-12-09] MEDS: Nadolol 20 MG Tablet PO (09:56)
[2023-12-09] MEDS: amLODIPine 10 MG Tablet PO (10:01)
--- NOTE | 2023-12-09 10:58 | DCINST_ITS ---
Discharge Instructions Diet Discharge Diet: 1800 Calorie Control Diet Activity Discharge Activity: Return to Normal Activity Weight Bearing Status: Full weight bearing Follow Up Care Test Results: Test results from this visit will be discussed in further detail at your follow- up appointment, if applicable. Discharge Plan Admission Admit Date/Time: 12/07/23 21:11 Primary Reason for Your Visit: Acute kidney injury, hyperkalemia Attending Provider: Alfredo Ag Primary Care Provider: Luciana Garcia Consulting Providers: Jamaal Rm; Landry Barber Discharge Orders/Prescriptions Prescriptions: New amlodipine 10 mg Tablet 10 mg PO DAILY Qty: 30 0RF benzonatate 100 mg Capsule 200 mg PO TID PRN PRN (Reason: cough) Qty: 0 0RF hydralazine 50 mg Tablet 50 mg PO TID Qty: 90 0RF aripiprazole 2 mg Tablet 2 mg PO DAILY Qty: 0 0RF nadolol 20 mg Tablet 20 mg PO BID Qty: 0 0RF Continued insulin glargine [Basaglar KwikPen U-100 Insulin] 100 unit/mL (3 mL) insulin pen 25 unit subcut .QAM & HS insulin lispro [Admelog SoloStar U-100 Insulin] 100 unit/mL insulin pen 30 unit subcut TID carbamazepine 200 mg tablet 600 mg PO BID Qty: 180 11RF cholecalciferol (vitamin D3) 1,000 UNIT capsule 1,000 unit PO DAILY Patient Comments: VITAMIN sertraline 100 MG tablet 100 mg PO DAILY multivitamin with folic acid 1 TABLET tablet 1 tab PO DAILY fish oil-dha-epa 1 EACH capsule 1 each PO DAILY pantoprazole 20 mg tablet,delayed release (DR/EC) 40 mg PO Q12H Qty: 60 3RF gemfibrozil 600 mg tablet 600 mg PO BID albuterol sulfate [Ventolin HFA] 90 mcg/actuation HFA aerosol inhaler 1 - 2 puff inhalation Q4H PRN PRN (Reason: Wheezing) Qty: 1 0RF rosuvastatin 40 MG tablet 40 mg PO DAILY Discontinued lisinopril 40 mg tablet 40 mg PO QHS furosemide 20 mg tablet 10 mg PO Q12H lisinopril 10 mg tablet 10 mg PO .QAM nadolol 40 mg tablet 40 mg PO BID nadolol 20 mg tablet 40 mg PO .bid Referrals / Follow Up: Jamaal Rm MD [Med Staff - Consulting] - Within 2 Weeks Luciana Garcia DO [Primary Care Provider] - Disposition Disposition (needs filled in before D/C Order can be placed): Home, Self Care
--- NOTE | 2023-12-09 11:07 | DS.PCM_ITS ---
Providers Date of Admission: 12/07/23 Date of Discharge: 12/09/23 Primary Care Physician: Luciana Garcia, Consultations 12/07/23 21:57 Consult: Nephrology Routine Consulting Provider: Jamaal Rm Reason for Consult: Acute kidney with hyperkalemia injury in the setting of CKD; stage IV. EMERGENT Consult: No MD Notified: Yes Date Notified: 12/08/23 Time Notified: 06:32 Method of Notification: Answering Service Reason For Visit: PEDRO LUIS WITH HYPERKALEMIA IN THE SETTING OF CKD; Diagnosis Discharge Diagnosis (1) Hyperkalemia: Status: Acute Code(s): E87.5 - Hyperkalemia Plan 1. Acute kidney injury-patient's kidney function is improved with admi nistration of fluids, continue fluids #2 hyperkalemia on outpatient labs-in reviewing the patient's medical records, this appears to be isolated, labs will be monitored, patient's potassium is normal presently #3 chronic kidney disease stage IV-patient is being followed by nephrology, complicates care, management, recovery, and prognosis #4 hypertensive urgency-patient's blood pressure will be monitored, blood pressure medicines will be adjusted if needed Total clinical time spent by myself addressing the patient's medical issues, reviewing all of his data, and collaborating with patient's care team: 35 minutes Medications at Discharge Home Medications cholecalciferol (vitamin D3) 25 mcg (1,000 unit) capsule 1,000 unit PO DAILY supplement 10/10/13 sertraline 100 mg tablet 100 mg PO DAILY depression 07/18/14 multivitamin with folic acid 400 mcg tablet 1 tab PO DAILY supplement 10/21/14 rosuvastatin 40 mg tablet 40 mg PO DAILY cholesterol 11/24/16 fish oil-dha-epa 1,200 mg-144 mg-216 mg capsule 1 each PO DAILY supplement 11/14/20 insulin glargine 100 unit/mL (3 mL) subcutaneous pen (Basaglar KwikPen U-100 Insulin) 25 unit subcut .QAM & HS diabetes 02/03/23 insulin lispro 100 unit/mL subcutaneous pen (Admelog SoloStar U-100 Insulin lispro) 30 unit subcut TID blood glucose 02/03/23 carbamazepine 200 mg tablet 600 mg (3 x 200 mg) PO BID #180 tabs 07/12/23 pantoprazole 20 mg tablet,delayed release 40 mg (2 x 20 mg) PO Q12H #60 tabs 08/02/23 albuterol sulfate 90 mcg/actuation aerosol inhaler (Ventolin HFA) 1 - 2 puff inhalation Q4H PRN PRN Wheezing #1 inh 10/16/23 gemfibrozil 600 mg tablet 600 mg PO BID pancreatitis prevention 12/08/23 amlodipine 10 mg tablet 10 mg PO DAILY #30 tabs 12/09/23 aripiprazole 2 mg tablet 2 mg PO DAILY #0 tabs 12/09/23 benzonatate 100 mg capsule 200 mg (2 x 100 mg) PO TID PRN PRN cough #0 caps 12/09/23 hydralazine 50 mg tablet 50 mg PO TID #90 tabs 12/09/23 nadolol 20 mg tablet 20 mg PO BID #0 tabs 12/09/23 Hospital Course Operations None Procedures None Summary of Care Provided Minutes Spent on Discharge: 31 Hospital Course: This 53-year-old white male was seen in the emergency room at [facility] due to abnormal labs which showed an elevated potassium of 5.8, he was referred to the emergency room for evaluation. Labs obtained in the emergency room showed a normal white blood cell count, hemoglobin was low at 8.6, potassium was normal at 4.7, creatinine was elevated at 4.39 and BUN was 39. Patient was admitted to PCU for acute kidney injury on a backdrop of stage IV ch ronic kidney disease and anemia, he was seen in consultation by nephrology, his ANNA inhibitor was stopped and his other medications were adjusted. Patient's blood pressure was elevated during his hospitalization and his blood pressure medication was adjusted. Patient did have significant proteinuria and it was felt that as an outpatient he would need to go back on lisinopril, this medicine was stopped during his hospitalization and he was not to resume it as an outpatient until he talked with nephrology. Patient's lab improved during his hospitalization, on 12/09/2023, patient was seen and examined: On examination he appeared in good health and spirits. Vital signs as documented. Skin warm and dry and without overt rashes. Neck without JVD, neck was supple, trachea midline, thyroid was normal. Lungs clear bilaterally, normal air movement was noted. Heart exam notable for regular rhythm, normal sounds and absence of murmurs, rubs or gallops. Abdomen unremarkable and without evidence of organomegaly, masses, or abdominal aortic enlargement. Bowel sounds are present, abdomen is not distended. Extremities nonedematous, no cyanosis was noted, no clubbing was noted. Neuro: Cranial n erves II through XII are grossly intact, no focal motor deficits were noted, sensation to light touch and pinprick intact, motor exam 5/5 throughout. Psych: Patient is alert and oriented x3, he does not appear anxious or depressed, he does not appear agitated. Patient appears stable for discharge on 12/09/2023, I talked with nephrology prior to his discharge on that date. Weight / BMI Weight Weight: 90.7 kg Body Mass Index (BMI) 30.4 ABG / Lab / Microbiology Data 12/08/23 07:36 12/09/23 03:20 Laboratory: Laboratory Results - last 24 hr 12/08/23 11:47: POC Glucose 109 H 12/08/23 16:25: POC Glucose 56 L 12/08/23 17:20: POC Glucose 81 12/08/23 18:00: Urine Color Yellow, Urine Clarity Clear, Urine pH 6.0, Ur Specific [place] 1.015, Urine Protein 500 H, Urine Glucose (UA) 50 H, Urine Ketones Negative, Urine Occult Blood 10 H, Urine Nitrite Negative, Urine Bilirubin Negative, Urine Urobilinogen Normal, Ur Leukocyte Esterase Negative, Urine RBC 0-5 SEEN, Urine WBC 0-5 SEEN, Ur Squamous Epith Cells 0 SEEN, Urine Bacteria 0 SEEN, Urine Mucus 0 SEEN 12/08/23 22:31: POC Glucose 128 H 12/09/23 03:20: Sodium 140, Potassium 4.5, Chloride 115 H, Carbon Dioxide 19.0 L , BUN 35 H, Creatinine 3.89 H, Estim Creat Clear Calc 23.51, Est GFR (MDRD) Af Amer 21 L, Est GFR (MDRD) Non-Af 17 L, BUN/Creatinine Ratio 9.0 L, Glucose 114 H , Calcium 7.9 L, Phosphorus 4.4, Albumin 2.2 L 12/09/23 07:51: POC Glucose 172 H Radiography Diagnostic Testing: Radiology Impression Renal Ultrasound 12/08/23 00:42 IMPRESSION: Bilateral simple benign-appearing renal cysts. Electronically Signed: Steve Holguin MD at 12:27 EDT , D/C Instructions Discharge Diet: 1800 Calorie Control Diet Weight Bearing Status: Full weight bearing Meaningful Use Info Meaningful Use Diagnoses (Choose all that apply): None applicable Discharge Plan Admission Admit Date/Time: 12/07/23 21:11 Primary Reason for Your Visit: Acute kidney injury, hyperkalemia Attending Provider: Alfredo Ag Primary Care Provider: Luciana Garcia Consulting Providers: Jamaal Rm; Landry Barber Discharge Orders/Prescriptions Prescriptions: New amlodipine 10 mg Tablet 10 mg PO DAILY Qty: 30 0RF benzonatate 100 mg Capsule 200 mg PO TID PRN PRN (Reason: cough) Qty: 0 0RF hydralazine 50 mg Tablet 50 mg PO TID Qty: 90 0RF aripiprazole 2 mg Tablet 2 mg PO DAILY Qty: 0 0RF nadolol 20 mg Tablet 20 mg PO BID Qty: 0 0RF Continued insulin glargine [Basaglar KwikPen U-100 Insulin] 100 unit/mL (3 mL) insulin pen 25 unit subcut .QAM & HS insulin lispro [Admelog SoloStar U-100 Insulin] 100 unit/mL insulin pen 30 unit subcut TID carbamazepine 200 mg tablet 600 mg PO BID Qty: 180 11RF cholecalciferol (vitamin D3) 1,000 UNIT capsule 1,000 unit PO DAILY Patient Comments: VITAMIN sertraline 100 MG tablet 100 mg PO DAILY multivitamin with folic acid 1 TABLET tablet 1 tab PO DAILY fish oil-dha-epa 1 EACH capsule 1 each PO DAILY pantoprazole 20 mg tablet,delayed release (DR/EC) 40 mg PO Q12H Qty: 60 3RF gemfibrozil 600 mg tablet 600 mg PO BID albuterol sulfate [Ventolin HFA] 90 mcg/actuation HFA aerosol inhaler 1 - 2 puff inhalation Q4H PRN PRN (Reason: Wheezing) Qty: 1 0RF rosuvastatin 40 MG tablet 40 mg PO DAILY Discontinued lisinopril 40 mg tablet 40 mg PO QHS furosemide 20 mg tablet 10 mg PO Q12H lisinopril 10 mg tablet 10 mg PO .QAM nadolol 40 mg tablet 40 mg PO BID nadolol 20 mg tablet 40 mg PO .bid Referrals / Follow Up: Jamaal Rm MD [Med Staff - Consulting] - Within 2 Weeks Luciana Garcia DO [Primary Care Provider] - Disposition Disposition (needs filled in before D/C Order can be placed): Home, Self Care Charges/Coding Visit Charges Inpatient E&M: 36759 Disch Hosp >30min
[2023-12-09] MEDS: 0.9% Saline Lock 10 ML Syringe IV (11:27)
[2023-12-09 11:54] LABS: Bedside Glucose 85 mg/dL (74-106)
== END 2023-12-09 12:20 | disposition home or self-care (01) | DRG 469 ==
LOC: ED 20:26 → PCU 23:19
PROVIDERS: Nurse Practitioner; Nurse Practitioner Adult Health; Admitting Provider Internal Medicine; Emergency Provider Emergency Medicine; PCP Family Medicine; Visit Provider Internal Medicine
DX: N17.9 Acute kidney failure, unspecified (principal); C84.10 Sezary disease, unspecified site; E13.22 Other specified diabetes mellitus with diabetic chronic kidney disease; G40.909 Epilepsy, unspecified, not intractable, without status epilepticus; N18.4 Chronic kidney disease, stage 4 (severe); B18.2 Chronic viral hepatitis C; Z79.4 Long term (current) use of insulin; I16.0 Hypertensive urgency; D63.8 Anemia in other chronic diseases classified elsewhere; K76.0 Fatty (change of) liver, not elsewhere classified; E78.00 Pure hypercholesterolemia, unspecified; M19.90 Unspecified osteoarthritis, unspecified site; E87.6 Hypokalemia; F12.90 Cannabis use, unspecified, uncomplicated; G50.0 Trigeminal neuralgia; E87.5 Hyperkalemia; Z68.31 Body mass index [BMI] 31.0-31.9, adult; Z82.3 Family history of stroke; E66.9 Obesity, unspecified; Z87.891 Personal history of nicotine dependence; Z90.49 Acquired absence of other specified parts of digestive tract
CPT/HCPCS: 36415; 36591; 76770; 80048; 80053; 80061; 80069; 81001; 82962; 83036; 83735; 84100; 84443; 85025; 93005; 94668; 97802; 99283; J7030; A4216; J2405

== ENCOUNTER → 2023-12-07 | Outpatient (CLI) | payer MEDICAID, SELFPAY ==
[2023-12-07 12:58] LABS: ALB/GLOB Ratio 0.7 RATIO (0.9-2.4); AST(SGOT) 9 U/L (15-37); Alanine Aminotransfer ALT/SGPT 11 U/L (16-61); Albumin, Serum 2.7 g/dL (3.2-5.0); Alkaline Phosphatase 87 U/L (45-117); Anion Gap 3 (5-15); BUN 39 mg/dL (7-18); BUN/Creat Ratio 8.5 RATIO (10-20); Calcium,Total 8.9 mg/dL (8.5-10.1); Chloride 111 mmol/L (98-107); Creatinine, Serum 4.57 mg/dL (0.70-1.30); EST Glomerular Filtration Rate 14 mL/min (>60); Est Glom Filt Rate - Afr Amer 17 mL/min (>60); Globulin 4.1 g/dL (2.2-4.2); Glucose 198 mg/dL (74-106); Potassium 5.7 mmol/L (3.5-5.1); Protein, Total 6.8 g/dL (6.4-8.2); Sodium Level 137 mmol/L (136-145)
== END | disposition home or self-care (01) ==
LOC: LAB 11:51
PROVIDERS: PCP Family Medicine; Referring Provider Nurse Practitioner Family; Visit Provider Nurse Practitioner Family
DX: N18.9 Chronic kidney disease, unspecified (principal)
CPT/HCPCS: 36415; 80053

== ENCOUNTER 2023-12-18 14:13 | Emergency (ER) | payer MEDICAID, SELFPAY ==
[2023-12-18 14:15] VITALS: BP 225/110; PULSE 63; RESP 18; TEMP 34.9; O2SAT 100; BMI 31.2
--- NOTE | 2023-12-18 14:54 | EX.ED.DYSGE1 ---
HPI <SERGE Salazar - Last Filed: 12/18/23 16:47> History of Present Illness Chief Complaint: Other, Pain/Inj Narrative Narrative: Patient is a 53-year-old male with history of trigeminal neuralgia, chronic kidney disease, hypertension who presents to the emergency department for pain to the left side of his face which is consistent with trigeminal neuralgia. Patient states he currently has a stye to his left upper eyelid, he did see an state highway police officer today. He currently has treatment for this. However he states the pain has been ongoing since Monday and is getting worse. Patient dates he has been here before, he does usually get some pain medicine, here for evaluation. Denies any fever chills nausea or vomiting. [facility] <SERGE Salazar - Last Filed: 12/18/23 16:47> [facility] Medical History (Updated 12/18/23 @ 16:45 by SERGE Salazar) Arthritis Asthma Carpal tunnel syndrome Depressive disorder Fatty liver Former smoker GERD (gastroesophageal reflux disease) Hepatitis C High cholesterol History of alcohol abuse History of colon cancer History of echocardiogram History of edema History of pain when walking History of stress test Hx of vertigo Leg cramps Obesity Pancreatitis portacath placement Restless legs Seizure disorder Sezary disease Syncope Therapeutic drug monitoring Trigeminal nerve disorder Wears glasses Home Medications cholecalciferol (vitamin D3) 25 mcg (1,000 unit) capsule 1,000 unit PO DAILY supplement 10/10/13 [History Last Taken 11/13/15] sertraline 100 mg tablet 100 mg PO DAILY depression 07/18/14 [History Last Taken 11/13/15] multivitamin with folic acid 400 mcg tablet 1 tab PO DAILY supplement 10/21/14 [History Last Taken 11/13/15] rosuvastatin 40 mg tablet 40 mg PO DAILY cholesterol 11/24/16 [History Last Taken Unknown] fish oil-dha-epa 1,200 mg-144 mg-216 mg capsule 1 each PO DAILY supplement 11/14/20 [History Last Taken Unknown] insulin glargine 100 unit/mL (3 mL) subcutaneous pen (Basaglar KwikPen U-100 Insulin) 25 unit subcut .QAM & HS diabetes 02/03/23 [History Last Taken Unknown] insulin lispro 100 unit/mL subcutaneous pen (Admelog SoloStar U-100 Insulin lispro) 30 unit subcut TID blood glucose 02/03/23 [History Last Taken Unknown] carbamazepine 200 mg tablet 600 mg (3 x 200 mg) PO BID #180 tabs 07/12/23 [Rx Last Taken Unknown] pantoprazole 20 mg tablet,delayed release 40 mg (2 x 20 mg) PO Q12H #60 tabs 08/02/23 [Rx Last Taken Unknown] albuterol sulfate 90 mcg/actuation aerosol inhaler (Ventolin HFA) 1 - 2 puff inhalation Q4H PRN PRN Wheezing #1 inh 10/16/23 [Rx Last Taken Unknown] gemfibrozil 600 mg tablet 600 mg PO BID pancreatitis prevention 12/08/23 [History Last Taken 12/07/23 10:00] amlodipine 10 mg tablet 10 mg PO DAILY #30 tabs 12/09/23 [Rx Last Taken Unknown] aripiprazole 2 mg tablet 2 mg PO DAILY #0 tabs 12/09/23 [Rx Last Taken Unknown] benzonatate 100 mg capsule 200 mg (2 x 100 mg) PO TID PRN PRN cough #0 caps 12/09/23 [Rx Last Taken Unknown] hydralazine 50 mg tablet 50 mg PO TID #90 tabs 12/09/23 [Rx Last Taken Unknown] furosemide 20 mg tablet 20 mg PO DAILY 12/18/23 [History Last Taken Unknown] lisinopril 10 mg tablet 10 mg PO DAILY 12/18/23 [History Last Taken Unknown] lisinopril 40 mg tablet 40 mg PO QHS 12/18/23 [History Last Taken Unknown] nadolol 40 mg tablet 40 mg PO BID 12/18/23 [History Last Taken Unknown] Allergy/AdvReac Type Severity Reaction Status Date / Time doxazosin [From Cardura] Allergy Severe Bleeding Verified 12/18/23 14:14 erythromycin base Allergy Severe Hives Verified 12/18/23 14:14 loratadine [From Claritin] Allergy Severe Rash Verified 12/18/23 14:14 Family History Grandmother Cervical cancer Diabetes Hypertension Trigeminal neuralgia Mother Uterine cancer Arthritis Diabetes Hypertension Grandfather Heart disease Arthritis Diabetes Hypertension Unknown Diabetes Arthritis Father Arthritis Diabetes Hypertension Sister Diabetes Hypertension Uncle CVA (cerebral vascular accident) Aunt Cerebral aneurysm Surgical History H/O left hemicolectomy Hx of appendectomy Social History Smoking Status: Former smoker Tobacco: How many years used: 20 how long ago did patient quit smoking: quit 2003 second hand exposure: No alcohol intake: former details: quit 2003 substance use type: former substance user Date of last use: Used Marijuana since he was a teenager ROS <SERGE Salazar - Last Filed: 12/18/23 16:47> ROS ED ROS Narrative Constitutional: Negative for fever, chills, weight loss, weakness Eyes: Negative for vision loss, vision change, double vision. Positive left upper eye lid swelling. ENT: Negative for any sore throat, ear pain, congestion. Positive facial pain worse on the left side Cardiovascular: Negative for any chest pain, tightness, palpitations Respiratory: Negative for any cough, sputum production, hemoptysis, dyspnea, dyspnea on exertion, orthopnea Gastrointestinal: Negative for any abdominal pain, nausea, vomiting, diarrhea, constipation, blood in stool, blood in vomit : Negative for any urinary frequency, dysuria, retention, blood in urine Muscle skeletal: Negative for any neck pain, back pain Neurological: Negative for any headache, syncope, dizziness Skin: Negative for any rashes, itching, abrasions, lacerations Psychiatric: Negative for any depression, anxiety, stress, suicidal ideation, homicidal ideation Hematologic: Negative for any excessive bruising, easy bleeding EXAM <SERGE Salazar - Last Filed: 12/18/23 16:47> Physical Exam Narrative Exam Narrative: Vital signs reviewed. HEET: Head normocephalic atraumatic, TMs clear bilaterally. Posterior pharynx is clear, moist mucous membranes. Nares clear bilaterally. Pupils equal round reactive to light. Patient does have some discomfort on touching to the left side of his face. He states the pain is sharp and shooting. Patient does have some erythema to the left upper eyelid, is consistent with a stye. Neck: Supple with no lymphadenopathy or tenderness. No signs of meningismus. Cardiac: Regular rate and rhythm no murmurs gallops or rubs, equal peripheral pulses bilaterally. Respiratory: Lungs clear to auscultation bilaterally. No chest tenderness. Abdomen: Soft, nontender, nondistended. No abdominal bruit or pulsatile masses. No hepatosplenomegaly Extremities: No peripheral edema, no signs of gross trauma or deformity. Active full range of motion of all extremities. Neuro: Cranial nerves II through XII intact, no focal neurological deficits. Skin: Clean dry and intact with no rash, purpura, petechiae, vesicles or pustules. Backs/flank: No CVA tenderness, no midline spinal tenderness, no deformity. Psych: Normal mood and affect. No SI, HI or acute psychosis. Const Vital Signs: 12/18/23 14:15 12/18/23 15:26 12/18/23 15:26 Temperature 94.9 F L Temperature Source Temporal Pulse Rate 63 Respiratory Rate 18 Respiratory Effort Normal Non-Labored Respiratory Pattern Normal Blood Pressure 225/110 H 217/101 H Blood Pressure Mean 148 139 Pulse Ox 100 Oxygen Delivery Method Room Air 12/18/23 16:00 12/18/23 17:00 12/18/23 17:16 Temperature 94.9 F L Temperature Source Pulse Rate 84 84 Respiratory Rate 16 16 Respiratory Effort Respiratory Pattern Blood Pressure 182/92 H 137/87 H 137/92 H Blood Pressure Mean 122 103 107 Pulse Ox 97 97 Oxygen Delivery Method Room Air <Logan Harvey MD - Last Filed: 12/18/23 23:46> Physical Exam Const Vital Signs: 12/18/23 14:15 12/18/23 15:26 12/18/23 15:26 Temperature 94.9 F L Temperature Source Temporal Pulse Rate 63 Respiratory Rate 18 Respiratory Effort Normal Non-Labored Respiratory Pattern Normal Blood Pressure 225/110 H 217/101 H Blood Pressure Mean 148 139 Pulse Ox 100 Oxygen Delivery Method Room Air 12/18/23 16:00 12/18/23 17:00 12/18/23 17:16 Temperature 94.9 F L Temperature Source Pulse Rate 84 84 Respiratory Rate 16 16 Respiratory Effort Respiratory Pattern Blood Pressure 182/92 H 137/87 H 137/92 H Blood Pressure Mean 122 103 107 Pulse Ox 97 97 Oxygen Delivery Method Room Air MDM <SERGE Salazar - Last Filed: 12/18/23 16:47> [facility] Lab Data Labs: Laboratory Results - last 24 hr 12/18/23 15:25 WBC 5.3 RBC 2.77 L Hgb 8.3 L Hct 24.4 L MCV 88.1 MCH 30.0 MCHC 34.0 RDW Std Deviation 42.4 RDW Coeff of Ever 13.2 Plt Count 183 MPV 9.9 Immature Gran % (Auto) 0.600 Neut % (Auto) 66.9 Lymph % (Auto) 23.1 Hubbard % (Auto) 6.2 Eos % (Auto) 2.6 Baso % (Auto) 0.6 Absolute Neuts (auto) 3.6 Absolute Lymphs (auto) 1.23 Nucleated RBC % 0 Sodium 138 Potassium 5.3 H Chloride 112 H Carbon Dioxide 22.0 Anion Gap 4 L BUN 34 H Creatinine 4.00 H Estim Creat Clear Calc 23.14 Est GFR (MDRD) Af Amer 20 L Est GFR (MDRD) Non-Af 17 L BUN/Creatinine Ratio 8.5 L Glucose 184 H Calcium 7.7 L Treatment and Re-Evaluation :: Differential diagnosis includes however is not limited to: Acute on chronic pain, trigeminal neuralgia, shingles, cellulitis, Patient appears to be in no obvious respiratory distress, patient's blood pressure is elevated however he states he is in significant pain. Presenting to the emergency department for pain to the left side of his face secondary to trigeminal neuralgia which is chronic. Patient will receive IV pain medicine, IV nausea medicine. Patient's blood pressure will be rechecked. Patient will have his CBC, comp BMP checked. Patient's blood pressure did improve with IV pain medicine. Patient be redosed with 0.5 mg Dilaudid. Laboratory values showed chronic anemia with a hemoglobin 8.3, this is baseline for the patient. Patient's chemistries shows a chronic renal sufficiency with a creatinine of 4.0, this is where the patient has been throughout the month of November. Potassium 5.3, glucose 134. At this time, patient after the second dose of Dilaudid feels better. Patient will be discharged home. Patient structured to return for any worsening symptoms. <Logan Harvey MD - Last Filed: 12/18/23 23:46> [facility] Narrative Medical decision making narrative: Dr. Harvey: I have personally performed a face to face assessment of the patient and have reviewed the MIN Note. I performed a substantive portion of the visit including all aspects of the following. My ryan findings include: History is diagnosed with stye in left eye today. Having problems with trigeminal neuralgia on the left jawline. Elevated blood pressure reading. No chest pain. No shortness of breath. Exam is afebrile. Vital signs noted. Regular rate and rhythm. Lungs clear to auscultation bilaterally. Abdomen soft and nontender with normoactive bowel sounds. Positive stye left eyelid. No active drainage. Medical Decision Making: Patient is asymptomatic with his blood pressure. He had recent changes in his medication as well. He may also be having a pain response. He was given analgesics for his tic douloureux. He is already being treated for the stye in his left eye and continue warm compresses. Check labs. I reviewed his laboratory work and found his hemoglobin stable at 8.3, creatinine 4.0 consistent with his chronic kidney disease. Potassium only slightly elevated at 5.3 which I think is nonspecific. I do not feel he needs calcium or medication. He is to have his potassium rechecked. His blood pressure came down to 180 systolic which is approximate 18% reduction of his systolic blood pressure. I do not feel he requires admission at this time. Disposition is discharged home in stable condition. Return instructions reviewed. Other additions or changes: [None] History & Record Review Discussion w/independent historian: Patient and Family Lab Data Attestation: I reviewed the patient's lab results. Labs: Laboratory Results - last 24 hr 12/18/23 15:25 WBC 5.3 RBC 2.77 L Hgb 8.3 L Hct 24.4 L MCV 88.1 MCH 30.0 MCHC 34.0 RDW Std Deviation 42.4 RDW Coeff of Ever 13.2 Plt Count 183 MPV 9.9 Immature Gran % (Auto) 0.600 Neut % (Auto) 66.9 Lymph % (Auto) 23.1 Hubbard % (Auto) 6.2 Eos % (Auto) 2.6 Baso % (Auto) 0.6 Absolute Neuts (auto) 3.6 Absolute Lymphs (auto) 1.23 Nucleated RBC % 0 Sodium 138 Potassium 5.3 H Chloride 112 H Carbon Dioxide 22.0 Anion Gap 4 L BUN 34 H Creatinine 4.00 H Estim Creat Clear Calc 23.14 Est GFR (MDRD) Af Amer 20 L Est GFR (MDRD) Non-Af 17 L BUN/Creatinine Ratio 8.5 L Glucose 184 H Calcium 7.7 L Discharge Plan Triage Chief Complaint: Other, Pain/Inj ED Midlevel Provider: Fransisco Lawson ED Provider: Logan Harvey Dx/Rx/DC Orders Clinical Impression: Anemia in chronic kidney disease, [place] (trigeminal neuralgia), Chronic kidney insufficiency Prescriptions: No Action insulin glargine [Basaglar KwikPen U-100 Insulin] 100 unit/mL (3 mL) insulin pen 25 unit subcut .QAM & HS insulin lispro [Admelog SoloStar U-100 Insulin] 100 unit/mL insulin pen 30 unit subcut TID carbamazepine 200 mg tablet 600 mg PO BID Qty: 180 11RF cholecalciferol (vitamin D3) 1,000 UNIT capsule 1,000 unit PO DAILY Patient Comments: VITAMIN sertraline 100 MG tablet 100 mg PO DAILY multivitamin with folic acid 1 TABLET tablet 1 tab PO DAILY fish oil-dha-epa 1 EACH capsule 1 each PO DAILY pantoprazole 20 mg tablet,delayed release (DR/EC) 40 mg PO Q12H Qty: 60 3RF gemfibrozil 600 mg tablet 600 mg PO BID amlodipine 10 mg Tablet 10 mg PO DAILY Qty: 30 0RF benzonatate 100 mg Capsule 200 mg PO TID PRN PRN (Reason: cough) Qty: 0 0RF hydralazine 50 mg Tablet 50 mg PO TID Qty: 90 0RF aripiprazole 2 mg Tablet 2 mg PO DAILY Qty: 0 0RF albuterol sulfate [Ventolin HFA] 90 mcg/actuation HFA aerosol inhaler 1 - 2 puff inhalation Q4H PRN PRN (Reason: Wheezing) Qty: 1 0RF lisinopril 10 mg tablet 10 mg PO DAILY Rx Instructions: AM nadolol 40 mg tablet 40 mg PO BID furosemide 20 mg tablet 20 mg PO DAILY lisinopril 40 mg tablet 40 mg PO QHS rosuvastatin 40 MG tablet 40 mg PO DAILY Primary Care Provider: Luciana Garcia Referrals: Luciana Garcia DO [Primary Care Provider] - Activity Restrictions/Additional Instructions: Your creatinine today was 4.0. You need to continue to follow-up outpatient. Disposition Disposition: Home, Self Care Discharge Date/Time: 12/18/23 17:18
[2023-12-18] MEDS: Ondansetron 4 MG/2 ML Vial IV (15:21)
[2023-12-18] MEDS: HYDROmorphone 0.5 MG/0.5 ML SYRINGE IV ×2 (15:22→16:48)
[2023-12-18 15:26] VITALS: BP 217/101
[2023-12-18 15:35] LABS: Absolute Lymphocyte Count 1.23 X10^3/uL (0.83-4.51); Absolute Neutrophil Count 3.6 X10^3/uL (2.0-7.7); Basophil# 0.03 X10^3/uL; Basophil% 0.6 % (0-1); Eosinophil# 0.14 X10^3/uL; Eosinophils% 2.6 % (0-5); Hematocrit 24.4 % (40-54); Hemoglobin 8.3 g/dL (13.0-16.5); Lymphocyte # 1.23 X10^3/ul (0.83-4.51); Lymphocyte % 23.1 % (19-41); Mean Corpuscular Volume 88.1 fL (80-94); Mean Platelet Vol. 9.9 fl (6.2-12.0); Monocyte# 0.33 X10^3/uL; Monocyte% 6.2 % (0-10); NRBC Flagged by Analyzer 0 % (0-5); Neutrophil # 3.57 X10^3/uL (2.7-7.7); Neutrophil % 66.9 % (47-70); Platelet Count 183 K/mm3 (150-450); RBC Distribution Width CV 13.2 % (11.6-14.6); RBC Distribution Width SD 42.4 fl (35.1-43.9); Red Blood Count 2.77 M/mm3 (4.6-6.2); White Blood Count 5.3 K/mm3 (4.4-11.0)
[2023-12-18 16:00] VITALS: BP 182/92
[2023-12-18 16:29] LABS: Anion Gap 4 (5-15); BUN 34 mg/dL (7-18); BUN/Creat Ratio 8.5 RATIO (10-20); Calcium,Total 7.7 mg/dL (8.5-10.1); Chloride 112 mmol/L (98-107); EST Glomerular Filtration Rate 17 mL/min (>60); Est Glom Filt Rate - Afr Amer 20 mL/min (>60); Estimated Creatinine Clearance 23.14 ml/min; Glucose 184 mg/dL (74-106); Potassium 5.3 mmol/L (3.5-5.1); Sodium Level 138 mmol/L (136-145)
[2023-12-18 17:00] VITALS: BP 137/87; PULSE 84; RESP 16; O2SAT 97
[2023-12-18] MEDS: 0.9 % NaCl (Sterile) Posiflush 10 mL IV (17:05)
[2023-12-18 17:16] VITALS: BP 137/92; PULSE 84; RESP 16; TEMP 34.9; O2SAT 97
== END 2023-12-18 17:18 | disposition home or self-care (01) ==
PROVIDERS: Nurse Practitioner; Emergency Provider Emergency Medicine; PCP Family Medicine; Visit Provider Emergency Medicine
DX: G50.0 Trigeminal neuralgia (principal); G40.909 Epilepsy, unspecified, not intractable, without status epilepticus; I12.9 Hypertensive chronic kidney disease with stage 1 through stage 4 chronic kidney disease, or unspecified chronic kidney disease; Z87.891 Personal history of nicotine dependence; D63.1 Anemia in chronic kidney disease; N18.9 Chronic kidney disease, unspecified; B19.20 Unspecified viral hepatitis C without hepatic coma; E78.00 Pure hypercholesterolemia, unspecified; Z85.038 Personal history of other malignant neoplasm of large intestine; Z79.899 Other long term (current) drug therapy; K21.9 Gastro-esophageal reflux disease without esophagitis; Z90.49 Acquired absence of other specified parts of digestive tract
CPT/HCPCS: 80048; 85025; 96374; 96375; 96376; 99285; A4216; J2405

== ENCOUNTER → 2024-01-03 | Outpatient (CLI) | payer MEDICAID, SELFPAY ==
[2024-01-03 08:51] LABS: Anion Gap 6 (5-15); BUN 49 mg/dL (7-18); BUN/Creat Ratio 10.7 RATIO (10-20); Calcium,Total 8.4 mg/dL (8.5-10.1); Chloride 113 mmol/L (98-107); Creatinine, Serum 4.56 mg/dL (0.70-1.30); EST Glomerular Filtration Rate 14 mL/min (>60); Est Glom Filt Rate - Afr Amer 17 mL/min (>60); Glucose 46 mg/dL (74-106); Potassium 4.7 mmol/L (3.5-5.1); Sodium Level 138 mmol/L (136-145)
== END | disposition home or self-care (01) ==
LOC: LAB 08:02
PROVIDERS: PCP Family Medicine; Referring Provider Internal Medicine Nephrology; Visit Provider Internal Medicine Nephrology
DX: N18.4 Chronic kidney disease, stage 4 (severe) (principal)
CPT/HCPCS: 36415; 80048

== ENCOUNTER 2024-01-09 12:27 | Day surgery (SDC) | payer MEDICAID, SELFPAY ==
[2024-01-09] VITALS (7 sets, daily range): BP systolic 113–181; BP diastolic 69–96; PULSE 62–66; RESP 14–18; TEMP 36.2–36.6; O2SAT 97–100; BMI 30.5
[2024-01-09] MEDS: Lactated Ringers 1,000 ML 15 ML IV (13:24)
[2024-01-09 13:45] LABS: Bedside Glucose 163 mg/dL (74-106)
--- NOTE | 2024-01-09 13:45 | IMM_PTH ---
PATIENT: REGINALDO HUFFMAN LOC: [facility] U#:[id number] AGE/SX: 53/M ROOM: RE01/09/[address]: Dr. Aquiles Warren DO : 1970 BED: DIS: 01/09/2024 SPEC #: [id number] RECD: 01/10/24 15:00 STATUS: ANTHONY MADI #: [id number] CEDRIC: 01/09/24 13:[address]: Aquiles Warren DEPT: IMMUNOHISTOCHEMISTRY RECD BY: Juan Luis Cruz ENTERED: 01/10/24 15:00 SP TYPE: IMMUNO OTHR DR: Kimberlyn Garcia MD Tissues: B - Stomach, NOS Procedures: H Pylori (initial) PHYSICIAN & INSTITUTION [place] [id number] SPECIMEN INFORMATION: Tissue Source: Gastric antrum Clinical Info: GERD, Gastric varcies without bleeding, anemia in chronic kidney disease Specimen Number: [id number] CPT code: 95209 METHODOLOGY: Deparaffinized sections of prefer/formalin-fixed tissue or PAP/DQ stained slides are incubated with monoclonal/polyclonal antibodies/oligonucleotide probes. Localization is made via biotin free immunoperoxidase method. Appropriate controls are performed and reacted as expected. Results on target cell population are indicated in the following table: RESULTS: ANTIBODY / CLONE RESULT Block B H Pylori (polyclonal) negative These tests were developed and their performance characteristics determined by [facility]. They may not have been cleared or approved by the U.S. Food and Drug Administration. The FDA has determined that such clearance or approval is not necessary. The above immunohistochemical/dualISH markers are ordered and reviewed by the Pathologist. INTERPRETATION: B. Gastric antrum, biopsy: Negative for Helicobacter pylori organisms. CHARANJIT/ 01/11/2024
--- NOTE | 2024-01-09 13:45 | EGD_PTH ---
PATIENT: REGINALDO HUFFMAN LOC: [facility] U#:[id number] AGE/SX: 53/M ROOM: RE01/09/[address]: Dr. Aquiles Warren DO : 1970 BED: DIS: 01/09/2024 SPEC #: [id number] RECD: 01/09/24 17:50 STATUS: ANTHONY MADI #: [id number] CEDRIC: 01/09/24 13:[address]: Aquiles Warren DEPT: SURGICAL PATHOLOGY RECD BY: Nancy Petty ENTERED: 01/10/24 11:59 SP TYPE: EGD BIOPSY OT DR: Kimberlyn Garcia MD Tissues: A - Duodenum, NOS B - Gastric mucous membrane Procedures: Surgery Specimen Level IV HEADER OPERATION: EGD biopsy PRE-OP DIAGNOSIS: GERD, Anemia in chronic kidney disease, Gastric varices without bleeding TISSUE SUBMITTED: A- Duodenum biopsy, B- Gastric antrum biopsy MICROSCOPIC DIAGNOSIS A. Duodenum, biopsy: A fragment of duodenal mucosa with acute and chronic inflammation, villous blunting and extensive gastric metaplasia. B. Gastric antrum, biopsy: Moderate acute and chronic gastritis. See comment. / 01/11/2024 COMMENT B. The results of immunohistochemistry for Helicobacter pylori will be reported separately ([id number]). Correlation with clinical, endoscopic findings and appropriate follow up are necessary. MICROSCOPIC DESCRIPTION Slides are reviewed. GROSS DESCRIPTION A. Received in fixative is one container labeled with the patient's name and designated Duodenum biopsy. The specimen consists of one irregular fragment of light gunn soft tissue that measures 0.4 x 0.2 x 0.1 cm. The specimen is totally submitted in one cassette. B. Received in fixative is one container labeled with the patient's name and designated Gastric antrum biopsy. The specimen consists of multiple irregular fragments of light gunn soft tissue that in aggregate measure 0.6 x 0.3 x 0.1 cm. The specimen is totally submitted in one cassette [facility] 01/10/2024 TC:2 CPT:29411l4
--- NOTE | 2024-01-09 13:59 | PCM.HP.BLA ---
History and Physical Date of Admission: 01/09/24 REGINALDO HUFFMAN is a 53 M who presents to the office today for ROS Const Constitutional: Positive for fatigue and headache(s) ENT ENT: Positive for headache(s) Gastro GI: Positive for bloating, diarrhea, heartburn, excessive flatus, nausea/dyspepsia and vomiting Musc Musculoskeletal: Positive for joint pain, back pain, muscle cramps, muscle weakness, numbness, stiffness, tingling, Arthritis, restless legs and leg pain at night Skin Skin: Positive for dry skin and itchy eyes Neuro Neurology: Positive for headache(s), numbness, tingling, restless legs and tremor(s) Psych Psychiatric: Positive for anxiety and Positive for depression Endo Endocrine: Positive for fatigue Aller/Imm Allergy/Immunologic: Positive for itchy eyes Exam Const General: cooperative, healthy appearing, comfortable and no acute distress Nutritional Appearance: obese Orientation: alert and awake HENMT Head: normal to inspection Ears: hearing grossly normal bilaterally Nose: external nose normal Face and sinus: normal facial exam Eyes General: appearance normal, both eyes and all related structures Alignment and Position: alignment normal Sclera: sclerae normal Neck Neck: normal visual inspection Carotids: normal carotid upstroke Chest Chest palpation & inspection: normal inspection of the chest Resp Effort & Inspection: normal respiratory effort, able to speak in complete sentences, symmetric chest movement, normal respiratory pattern, no audible wheezes and no cough Auscultation: Bilateral: Clear to Auscultation Cardio Rate: regular rate Rhythm: regular rhythm Heart Sounds: S1 normal and S2 normal Bruits: no carotid bruits GI Inspection: normal to inspection and obesity Musc Cervical Spine: normal cervical lordosis Thoracic/Lumbar Spine: thoracic and lumbar spine normal to inspection Skin General: no rashes or lesions noted Lesions: no lesions Rashes: no rashes Trauma: no lacerations or abrasions Wounds: wounds noted avulsion right plantar foot size (1x1 cm) and without odor; no drainage Neuro General: patient alert, patient awake and patient oriented x3 Cognition: normal cognition Speech: speech normal Gait: normal gait Extrem General: normal to inspection and no pedal edema Psych Appearance: grossly normal Mental Status: mental status grossly normal Mood: congruent mood Affect: normal affect Speech and Movement: speech and movement normal Attitude: cooperative Thought Process: normal Thought Content: normal Judgment: judgment good Quality Reporting Tobacco Screening (CMS 138) Smoking Status: Former smoker Assessment and Plan Assessment and Plan (1) GERD (gastroesophageal reflux disease): Status: Acute Plan: He is having refractory gastroesophageal reflux disease on twice a day PPI therapy. I think it is a side effect of his medicines. However he could also still be secondary to gastroparesis. We will order gastric emptying study. (2) Gastric varices without bleeding: Status: Chronic Plan: Gastric varices without clear signs or symptoms of 3 portal hypertension for hypertension all post portal hypertension. He also has some mild splenomegaly. There was no clot seen in the portal or hepatic vein. He did have gastric varices that were seen and there were no other clot seen in the circulatory system involving the abdomen. He would likely need to get liver biopsy and or TIPS procedure. We will repeat his upper endoscopy to see how his gastric varices are doing. (3) Anemia in chronic kidney disease: Status: Chronic Qualifiers: Chronic kidney disease stage: unspecified stage Qualified Code(s): N18.9 - Chronic kidney disease, unspecified; D63.1 - Anemia in chronic kidney disease Comment: CrCl on 10/27/2022 was 28, stage IV disease. Plan: Anemia seems to be relatively stable at 9.8 since being in the hospital. (4) Loose stools: Status: Chronic (5) Subepithelial esophageal lesion: Status: Chronic (6) History of colon cancer: Status: Chronic Comment: No clinical evidence of disease. Orders: Orders Gastric Emptying Study Today K21.9 - Gastro-esophageal reflux disease without esophagitis I have examined the patient and the H&P has been reviewed. There are no clinical changes since date of exam.
--- NOTE | 2024-01-09 14:20 | OP.EGD_ITS ---
Patient Name: Raleigh Chen Procedure Date: 01/09/2024 1:58 PM Date of : 1970 Age: 53 Procedure: Upper GI endoscopy Indications: Epigastric abdominal pain, Functional Dyspepsia, Gastric varices Providers: Aquiles Warren DO Medicines: Monitored Anesthesia Care Patient Profile: This is a 53 year old male. Refer to note in patient chart for documentation of history and physical. Patient has symptoms of chronic epigastric abdominal pain, chronic nausea and chronic vomiting. Complications: No immediate complications. Procedure: Pre-Anesthesia Assessment: - Prior to the procedure, a History and Physical was performed, and patient medications and allergies were reviewed. The patient is competent. The risks and benefits of the procedure and the sedation options and risks were discussed with the patient. All questions were answered and informed consent was obtained. Patient identification and proposed procedure were verified by the physician in the pre-procedure area. Mental Status Examination: alert and oriented. Airway Examination: normal oropharyngeal airway and neck mobility. Respiratory Examination: clear to auscultation. CV Examination: normal. Prophylactic Antibiotics: The patient does not require prophylactic antibiotics. Prior Anticoagulants: The patient has taken no anticoagulant or antiplatelet agents. ASA Grade Assessment: II - A patient with mild systemic disease. After reviewing the risks and benefits, the patient was deemed in satisfactory condition to undergo the procedure. The anesthesia plan was to use monitored anesthesia care (MAC). Immediately prior to administration of medications, the patient was re-assessed for adequacy to receive sedatives. The heart rate, respiratory rate, oxygen saturations, blood pressure, adequacy of pulmonary ventilation, and response to care were monitored throughout the procedure. The physical status of the patient was re-assessed after the procedure. After obtaining informed consent, the endoscope was passed under direct vision. Throughout the procedure, the patient's blood pressure, pulse, and oxygen saturations were monitored continuously. The Endoscope was introduced through the mouth, and advanced to the second part of duodenum. The upper GI endoscopy was accomplished without difficulty. The patient tolerated the procedure well. Scope In: 2:07:06 PM Scope Out: 2:11:12 PM Total Procedure Duration Time 0 hours 4 minutes 6 seconds Findings: The examined esophagus was normal. Type 1 isolated gastric varices (IGV1, varices located in the fundus) with stigmata of prior treatment and no bleeding were found in the gastric fundus. There were no stigmata of recent bleeding. They were 8 mm in largest diameter. Patchy moderately erythematous mucosa without bleeding was found in the gastric antrum. Biopsies were taken with a cold forceps for histology. Verification of patient identification for the specimen was done. Estimated blood loss was minimal. Biopsies were taken with a cold forceps for Helicobacter pylori testing. Verification of patient identification for the specimen was done. Estimated blood loss was minimal. Patchy mildly erythematous mucosa without active bleeding and with no stigmata of bleeding was found in the duodenal bulb. Biopsies were taken with a cold forceps for histology. Verification of patient identification for the specimen was done. Estimated blood loss was minimal. Impression: - Normal esophagus. - Type 1 isolated gastric varices (IGV1, varices located in the fundus), previously treated and without bleeding. - Erythematous mucosa in the antrum. Biopsied. - Erythematous duodenopathy. Biopsied. Recommendation: - Discharge patient to home. - Resume previous diet. - Continue present medications. - Await pathology results. Procedure Code(s): --- Professional --- 23194, Esophagogastroduodenoscopy, flexible, transoral; with biopsy, single or multiple CPT copyright 2021 [employer]. All rights reserved. The codes documented in this report are preliminary and upon certified professional coder review may be revised to meet current compliance requirements. Aquiles Warren DO 01/09/2024 2:19:29 PM This report has been signed electronically. Number of Addenda: 0 Note Initiated On: 01/09/2024 1:58 PM
--- NOTE | 2024-01-09 14:20 | OP.CCLET_ITS ---
01/09/2024 Kimberlyn Garcia Md Re : Upper GI endoscopy procedure for Raleigh Chen Dear Radha This procedure was performed on Tuesday, January 09, 2024. My impressions and recommendations are as follows: Impressions : - Normal esophagus. - Type 1 isolated gastric varices (IGV1, varices located in the fundus), previously treated and without bleeding. - Erythematous mucosa in the antrum. Biopsied. - Erythematous duodenopathy. Biopsied. Recommendations : - Discharge patient to home. - Resume previous diet. - Continue present medications. - Await pathology results. My findings are described in the full procedure note, which is enclosed. If I can be of further assistance, please feel free to contact me at . Sincerely, Aquiles Warren, 01/09/2024 2:19:29 PM This report has been signed electronically.
== END 2024-01-09 15:35 | disposition home or self-care (01) ==
LOC: EN 12:28 → AC 12:45
PROVIDERS: PCP Family Medicine; Referring Provider Family Medicine; Visit Provider Internal Medicine Gastroenterology
PROC: 0DJ08ZZ Inspection of Upper Intestinal Tract, Via Natural or Artificial Opening Endoscopic (ICD-10-PCS; CPT 43235; principal; 2024-01-09 13:40)
DX: K21.9 Gastro-esophageal reflux disease without esophagitis (principal); G40.909 Epilepsy, unspecified, not intractable, without status epilepticus; B18.2 Chronic viral hepatitis C; E13.22 Other specified diabetes mellitus with diabetic chronic kidney disease; I86.4 Gastric varices; N18.9 Chronic kidney disease, unspecified; D63.1 Anemia in chronic kidney disease; R19.4 Change in bowel habit; K22.89 Other specified disease of esophagus; Z85.038 Personal history of other malignant neoplasm of large intestine; Z87.891 Personal history of nicotine dependence; I12.9 Hypertensive chronic kidney disease with stage 1 through stage 4 chronic kidney disease, or unspecified chronic kidney disease; E78.5 Hyperlipidemia, unspecified; E66.9 Obesity, unspecified; Z68.31 Body mass index [BMI] 31.0-31.9, adult; Z79.899 Other long term (current) drug therapy; Z90.49 Acquired absence of other specified parts of digestive tract; K31.89 Other diseases of stomach and duodenum; K31.A0 Gastric intestinal metaplasia, unspecified; K29.50 Unspecified chronic gastritis without bleeding
CPT/HCPCS: 43239; 82962; 88305; 88342; J7120; J2405

== ENCOUNTER → 2024-02-27 | Outpatient (CLI) | payer MEDICAID, SELFPAY ==
[2024-02-27 12:13] LABS: Hematocrit 26.5 % (40-54); Hemoglobin 8.9 g/dL (13.0-16.5); Mean Corp Hgb Conc 33.6 g/dL (32-36); Mean Corpuscular Hgb 30.5 pg (27.0-32.0); Mean Corpuscular Volume 90.8 fL (80-94); Mean Platelet Vol. 10.3 fl (6.2-12.0); Platelet Count 260 K/mm3 (150-450); RBC Distribution Width CV 13.4 % (11.6-14.6); RBC Distribution Width SD 44.4 fl (35.1-43.9); Red Blood Count 2.92 M/mm3 (4.6-6.2); White Blood Count 6.1 K/mm3 (4.4-11.0)
[2024-02-27 12:40] LABS: Albumin, Serum 2.7 g/dL (3.2-5.0); BUN 59 mg/dL (7-18); BUN/Creat Ratio 10.3 RATIO (10-20); Calcium,Total 8.3 mg/dL (8.5-10.1); Chloride 106 mmol/L (98-107); Creatinine, Serum 5.72 mg/dL (0.70-1.30); EST Glomerular Filtration Rate 11 mL/min (>60); Est Glom Filt Rate - Afr Amer 13 mL/min (>60); Glucose 313 mg/dL (74-106); Phosphorus 5.5 mg/dL (2.5-4.9); Sodium Level 134 mmol/L (136-145)
[2024-02-28 16:10] LABS: Endomysial Antibody IgA Negative (Negative); Immunoglobulin A 132 mg/dL (90-386); t-Transglutaminase IgA <2 U/mL (0-3)
== END | disposition home or self-care (01) ==
LOC: LAB 11:31
PROVIDERS: Internal Medicine Gastroenterology; PCP Family Medicine; Referring Provider Nurse Practitioner Adult Health; Visit Provider Nurse Practitioner Adult Health
DX: N18.4 Chronic kidney disease, stage 4 (severe) (principal)
CPT/HCPCS: 36415; 80069; 82784; 83516; 85027; 86255

== ENCOUNTER 2024-03-13 23:47 | Emergency (ER) | payer MEDICAID, SELFPAY ==
[2024-03-13 23:48] VITALS: BP 195/92; PULSE 65; RESP 13; TEMP 36.9; O2SAT 100; BMI 30.7
[2024-03-14] VITALS (9 sets, daily range): BP systolic 167–207; BP diastolic 82–97; PULSE 57–63; RESP 12–13; TEMP 35.9–36.7; O2SAT 99–100
--- NOTE | 2024-03-14 00:22 | CT_ITS ---
EXAM: CT HEAD WITHOUT INTRAVENOUS CONTRAST CLINICAL INDICATION: headache headache TECHNIQUE: Multiple axial images were obtained of the head without intravenous contrast. This CT exam was performed using one or more of the following dose reduction techniques: automated exposure control, adjustment of the mA and/or kV according to patient size, and/or use of iterative reconstruction technique. RADIATION DOSE: CTDIvol = 44.99 mGy, DLP = 880.47 mGy-cm COMPARISON: Noncontrast CT scan brain 11/23/2022. FINDINGS: BRAIN AND EXTRA-AXIAL SPACES: There are microvascular changes in supratentorial white matter. There is cerebral atrophy. No intra- or extra-axial hemorrhage. No evidence of acute infarct. No intracranial mass or mass effect. There is preservation of the chua/white matter interface. Posterior fossa structures are unremarkable. No hydrocephalus. Basal cisterns are patent. BONES/JOINTS: Unremarkable. No discrete lytic or blastic abnormalities. VASCULATURE: There is atherosclerotic calcification of the cavernous carotid arteries. SINUSES: Unremarkable as visualized. Clear. MASTOID AIR CELLS: Unremarkable. Clear. ORBITS: Visualized globes, extraocular muscles, optic nerves and retrobulbar fat appear unremarkable. CT/Brain/Head without Contrast IMPRESSION: 1. Chronic involutional changes of the brain. 2. No demonstrated acute intracranial process. Electronically Signed: Dinesh Macias MD at 2:28 EDT Reading Location ID and State: [facility] / [place] , Service support ,
--- NOTE | 2024-03-14 00:22 | EKG12_ITS ---
Test Reason : HYPERTENSION Blood Pressure : / mmHG Vent. Rate : 064 BPM Atrial Rate : 064 BPM P-R Int : 184 ms QRS Dur : 114 ms QT Int : 404 ms P-R-T Axes : 031 008 067 degrees QTc Int : 416 ms Normal sinus rhythm Nonspecific T wave abnormality Abnormal ECG Confirmed by SARAH GARCIA, IVETTE ([id number]), editor magazine MORGAN JMAISON ([id number]) on 03/18/2024 10:21:29 AM Referred By: Confirmed By:IVETTE SMITH MD
[2024-03-14] MEDS: cloNIDine HCl 0.2 MG Tablet PO (01:28)
[2024-03-14] MEDS: Labetalol (Prefilled) 20 MG/4 ML IV (01:28)
[2024-03-14] MEDS: Ondansetron 4 MG/2 ML Vial IV (01:28)
[2024-03-14 01:39] LABS: Absolute Lymphocyte Count 1.52 X10^3/uL (0.83-4.51); Absolute Neutrophil Count 4.4 X10^3/uL (2.0-7.7); Basophil# 0.03 X10^3/uL; Basophil% 0.5 % (0-1); Eosinophil# 0.08 X10^3/uL; Eosinophils% 1.2 % (0-5); Hemoglobin 7.2 g/dL (13.0-16.5); Lymphocyte # 1.52 X10^3/ul (0.83-4.51); Lymphocyte % 23.7 % (19-41); Mean Corp Hgb Conc 34.3 g/dL (32-36); Mean Corpuscular Hgb 30.5 pg (27.0-32.0); Mean Platelet Vol. 9.7 fl (6.2-12.0); Monocyte# 0.35 X10^3/uL; Monocyte% 5.5 % (0-10); NRBC Flagged by Analyzer 0 % (0-5); Neutrophil # 4.37 X10^3/uL (2.7-7.7); Neutrophil % 68.2 % (47-70); Platelet Count 203 K/mm3 (150-450); RBC Distribution Width CV 13.3 % (11.6-14.6); Red Blood Count 2.36 M/mm3 (4.6-6.2); White Blood Count 6.4 K/mm3 (4.4-11.0)
[2024-03-14 01:55] LABS: Anion Gap 8 (5-15); BUN 64 mg/dL (7-18); BUN/Creat Ratio 12.8 RATIO (10-20); Chloride 110 mmol/L (98-107); Creatinine, Serum 5.01 mg/dL (0.70-1.30); EST Glomerular Filtration Rate 13 mL/min (>60); Est Glom Filt Rate - Afr Amer 16 mL/min (>60); Estimated Creatinine Clearance 18.31 ml/min; Glucose 93 mg/dL (74-106); Potassium 5.4 mmol/L (3.5-5.1); Sodium Level 137 mmol/L (136-145); Troponin-I HS 18 pg/mL (3.0-78.0)
--- NOTE | 2024-03-14 03:48 | EX.ED.DYSGE1 ---
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 Patient states that he has been taking his blood pressure medication as directed but today he has noticed that it has been elevated at approximately 190. He states with this he has had a generalized headache for the past few days. He denies any excessive stimulant use or illicit drug. He states that there has been no bouts of vomiting or diarrhea and he denies any loss of blood in his urine or stool. He states that secondary to the persistent headache and the fact his blood pressures been elevated from his baseline he comes in for evaluation [facility] Medical History Cancer Insulin dependent diabetes mellitus History of renal disease Low iron Easy bruising Wears glasses Arthritis Fatty liver Restless legs Former smoker Leg cramps History of edema History of stress test History of echocardiogram Syncope Hx of vertigo Therapeutic drug monitoring History of colon cancer Trigeminal nerve disorder portacath placement GERD (gastroesophageal reflux disease) High cholesterol Hepatitis C Depressive disorder Obesity Seizure disorder Asthma History of alcohol abuse Pancreatitis Sezary disease Home Medications ?Medication ?Instructions ?Recorded ?Last Taken ?Type cholecalciferol (vitamin D3) 25 1,000 unit PO DAILY supplement 10/10/13 11/13/15 History mcg (1,000 unit) capsule sertraline 100 mg tablet 100 mg PO DAILY depression 07/18/14 11/13/15 History multivitamin with folic acid 400 1 tab PO DAILY supplement 10/21/14 11/13/15 History mcg tablet rosuvastatin 40 mg tablet 40 mg PO QHS cholesterol 11/24/16 Unknown History fish oil-dha-epa 1,200 mg-144 1 each PO DAILY supplement 11/14/20 Unknown History mg-216 mg capsule carbamazepine 200 mg tablet 600 mg (3 x 200 mg) PO BID #180 07/12/23 Unknown Rx tabs albuterol sulfate 90 mcg/actuation 1 - 2 puff inhalation Q4H PRN PRN 10/16/23 Unknown Rx aerosol inhaler (Ventolin HFA) Wheezing #1 inh gemfibrozil 600 mg tablet 600 mg PO BID pancreatitis 12/08/23 12/07/23 10:00 History prevention amlodipine 10 mg tablet 10 mg PO DAILY #30 tabs 12/09/23 Unknown Rx aripiprazole 2 mg tablet 2 mg PO DAILY #0 tabs 12/09/23 Unknown Rx hydralazine 50 mg tablet 50 mg PO TID #90 tabs 12/09/23 Unknown Rx lisinopril 10 mg tablet 10 mg PO DAILY 12/18/23 Unknown History nadolol 40 mg tablet 40 mg PO BID 12/18/23 01/08/24 21:00 History pantoprazole 20 mg tablet,delayed 40 mg (2 x 20 mg) PO DAILY #60 02/06/24 Unknown Rx release TABLETS hydrochlorothiazide 50 mg tablet 50 mg PO DAILY 03/06/24 Unknown History insulin lispro 100 unit/mL 18 unit (0.18 mL) subcut TID blood 03/12/24 Unknown Rx subcutaneous pen (Admelog SoloStar glucose #60 mL U-100 Insulin lispro) insulin glargine 100 unit/mL (3 20 unit (0.2 mL) subcut DAILY #18 03/13/24 Unknown Rx mL) subcutaneous pen (Lantus mL Solostar U-100 Insulin) Allergy/AdvReac Type Severity Reaction Status Date / Time doxazosin (From Cardura) Allergy Severe Bleeding Verified 03/13/24 23:52 erythromycin base Allergy Severe Hives Verified 03/13/24 23:52 loratadine (From Claritin) Allergy Severe Rash Verified 03/13/24 23:52 Family History Grandmother Cervical cancer Diabetes Hypertension Trigeminal neuralgia Mother Uterine cancer Arthritis Diabetes Hypertension Grandfather Heart disease Arthritis Diabetes Hypertension Unknown Diabetes Arthritis Father Arthritis Diabetes Hypertension Sister Diabetes Hypertension Uncle CVA (cerebral vascular accident) Aunt Cerebral aneurysm Surgical History Hx of esophagogastroduodenoscopy Hx of appendectomy H/O left hemicolectomy Social History Smoking Status: Former smoker Tobacco: How many years used: 20 how long ago did patient quit smoking: quit 2003 second hand exposure: No alcohol intake: former details: quit 2003 substance use type: former substance user Date of last use: Used Marijuana since he was a teenager ROS ROS ED Constitutional Constitutional ED: Denies chills or fever(s) Eyes Eyes: Denies blurry vision or change in vision ENT ENT ED: Denies sore throat Cardiovascular Cardiovascular: Denies chest pain, palpitations or racing heartbeat Respiratory/Chest Respiratory/Chest: Denies cough or dyspnea Gastrointestinal Gastrointestinal: Reports nausea; Denies abdominal pain, diarrhea or vomiting Genitourinary Genitourinary ED: Denies dysuria Musculoskeletal Musculoskeletal: Denies myalgias Integumentary Denies rash Neurologic Neurologic: Reports headache(s); Denies paresthesias or weakness Hematologic/Lymphatic Hematologic/Lymphatic: Denies easy bleeding or easy bruising EXAM Physical Exam Const Vital Signs: 03/13/24 23:48 03/13/24 23:55 03/14/24 01:25 Temperature 98.5 F Temperature Source Oral Pulse Rate 65 63 Respiratory Rate 13 12 Respiratory Effort Normal Blood Pressure 195/92 H 207/97 H Blood Pressure Mean 126 133 Pulse Ox 100 100 Oxygen Delivery Method Room Air Room Air 03/14/24 02:28 Temperature Temperature Source Pulse Rate 62 Respiratory Rate 12 Respiratory Effort Blood Pressure 167/84 H Blood Pressure Mean 111 Pulse Ox 99 Oxygen Delivery Method Room Air Positive well nourished and well developed General Appearance ED: well developed and pallor HEENT HEENT Narrative: Normocephalic atraumatic No tongue or lip swelling no oral lesions no airway edema or compromise Eyes PERRL and EOMs intact bilaterally Eyes Narrative: There is subconjunctival pallor noted General Eye ED: Negative for scleral icterus Neck supple Neck Narrative: No nuchal rigidity or meningeal No carotid bruit Chest Wall palpation of chest normal Resp normal respiratory effort and clear to auscultation bilaterally Cardio regular rate and regular rhythm Rate: other Other Details: Radial and carotid pulses are equal and symmetric GI normal to inspection, nondistended, normoactive bowel sounds, non-tender, non-distended and no masses GI Narrative: No voluntary guarding or rigidity or pulsatile mass Auscultation: normoactive bowel sounds Palpation: soft Extremity Extremity Narrative: Trace to +1 pitting edema to the bilateral lower extremities that is equal and symmetric Negative Homans' sign bilaterally Neuro oriented x3, CN's II-XII intact bilaterally and no sensory deficits noted Neuro Narrative: Cranial nerves II through XII are grossly intact there are no focal neurologic deficits No pronator drift no dysmetria no truncal ataxia NIH stroke scale score of 0 Sensorium / Orientation: alert Motor Exam: strength 5/5 throughout Psych mental status grossly normal Skin no rashes or lesions noted Skin Narrative: Skin is pale in color but capillary refill is less than 3 seconds General Skin Exam: pallor; Negative for jaundice MDM MDM MDM Narrative Medical decision making narrative: Patient arrived to the ER hypertensive but otherwise with stable vitals. As she reports headache associate with his hypertension there is concern for a spontaneous hemorrhage such as subarachnoid or subdural. Also with hypertension there is concern for endorgan damage such as acute kidney injury or acute coronary syndrome. Therefore basic labs and a CT scan were obtained. CT scan revealed no acute bleed or mass. Patient's EKG is normal sinus rhythm and his troponin is normal at 18 going against acute coronary syndrome. He has chronic kidney disease and his creatinine is elevated at 5 but this is slightly improved from his value earlier in the month of 5.4 going against acute on chronic kidney injury. The patient's hemoglobin is down at 7.2 and this is down from 8.9 earlier in the month. He does have history of varices but states there has been no bouts of hematemesis or hematochezia and therefore this decreases most like related to anemia and chronic disease. However because the value is approaching 7 and his previous values have been higher at about 9 he will be given 1 unit of blood. I do not feel there is need for admission as he is overall hemodynamically stable with normal neurologic exam. He was also given clonidine and labetalol secondary to his hypertension. His blood pressure reduced between 15 and 25% which is the goal reduction in the ER. Therefore at this time as he has no signs of endorgan damage and his blood pressure has improved and he is not having signs of active bleeding there is no need for admission and he is otherwise safe for discharge History & Record Review Discussion w/independent historian: Patient Lab Data Attestation: I reviewed the patient's lab results. Labs: Laboratory Results - last 24 hr 03/14/24 03/14/24 01:30 02:40 WBC 6.4 RBC 2.36 L Hgb 7.2 L Hct 21.0 L MCV 89.0 MCH 30.5 MCHC 34.3 RDW Std Deviation 43.0 RDW Coeff of Ever 13.3 Plt Count 203 MPV 9.7 Immature Gran % (Auto) 0.900 Neut % (Auto) 68.2 Lymph % (Auto) 23.7 Grant % (Auto) 5.5 Eos % (Auto) 1.2 Baso % (Auto) 0.5 Absolute Neuts (auto) 4.4 Absolute Lymphs (auto) 1.52 Nucleated RBC % 0 Sodium 137 Potassium 5.4 H Chloride 110 H Carbon Dioxide 19.0 L Anion Gap 8 BUN 64 H Creatinine 5.01 H Estim Creat Clear Calc 18.31 Est GFR (MDRD) Af Amer 16 L Est GFR (MDRD) Non-Af 13 L BUN/Creatinine Ratio 12.8 Glucose 93 Calcium 8.0 L Troponin I High Sens 18 Blood Type O POSITIVE Antibody Screen NEGATIVE Radiography Diagnostic Testing: Clinical Impression(s) from Imaging Studies Brain CT 03/14/24 00:22 IMPRESSION: 1. Chronic involutional changes of the brain. 2. No demonstrated acute intracranial process. Electronically Signed: Dinesh Macias MD at 2:28 EDT , Discharge Plan Triage Chief Complaint: Hypertension ED Provider: Manuel Deluna Dx/Rx/DC Orders Clinical Impression: Accelerated hypertension, Chronic kidney disease, Anemia of chronic disease, Insulin dependent diabetes mellitus Instructions: Anemia, CKD Dc, ED Hypertension, Established Prescriptions: No Action carbamazepine 200 mg tablet 600 mg PO BID Qty: 180 11RF hydrochlorothiazide 50 mg tablet 50 mg PO DAILY cholecalciferol (vitamin D3) 1,000 UNIT capsule 1,000 unit PO DAILY Patient Comments: VITAMIN sertraline 100 MG tablet 100 mg PO DAILY multivitamin with folic acid 1 TABLET tablet 1 tab PO DAILY fish oil-dha-epa 1 EACH capsule 1 each PO DAILY gemfibrozil 600 mg tablet 600 mg PO BID amlodipine 10 mg Tablet 10 mg PO DAILY Qty: 30 0RF hydralazine 50 mg Tablet 50 mg PO TID Qty: 90 0RF aripiprazole 2 mg Tablet 2 mg PO DAILY Qty: 0 0RF albuterol sulfate [Ventolin HFA] 90 mcg/actuation HFA aerosol inhaler 1 - 2 puff inhalation Q4H PRN PRN (Reason: Wheezing) Qty: 1 0RF lisinopril 10 mg tablet 10 mg PO DAILY Rx Instructions: AM nadolol 40 mg tablet 40 mg PO BID rosuvastatin 40 MG tablet 40 mg PO QHS pantoprazole 20 mg tablet,delayed release (DR/EC) 40 mg PO DAILY Qty: 60 1RF insulin lispro [Admelog SoloStar U-100 Insulin] 100 unit/mL insulin pen 18 unit subcut TID Qty: 60 1RF insulin glargine [Lantus Solostar U-100 Insulin] 100 unit/mL (3 mL) insulin pen 20 unit subcut DAILY Qty: 18 1RF Primary Care Provider: Kimberlyn Garcia Referrals: Kimberlyn Garcia MD [Primary Care Provider] - Activity Restrictions/Additional Instructions: Please continue all of your home medication as directed by your doctor and return to the ER should you have any further concerns Print Language: Angolan Disposition Disposition: Home, Self Care
== END 2024-03-14 06:07 | disposition home or self-care (01) ==
PROVIDERS: Emergency Provider Emergency Medicine; PCP Family Medicine; Visit Provider Emergency Medicine
DX: I12.9 Hypertensive chronic kidney disease with stage 1 through stage 4 chronic kidney disease, or unspecified chronic kidney disease (principal); G40.909 Epilepsy, unspecified, not intractable, without status epilepticus; Z79.4 Long term (current) use of insulin; E11.22 Type 2 diabetes mellitus with diabetic chronic kidney disease; Z87.891 Personal history of nicotine dependence; D63.1 Anemia in chronic kidney disease; N18.9 Chronic kidney disease, unspecified; R51.9 Headache, unspecified; E78.00 Pure hypercholesterolemia, unspecified; F32.A Depression, unspecified; Z79.899 Other long term (current) drug therapy; B19.20 Unspecified viral hepatitis C without hepatic coma; K21.9 Gastro-esophageal reflux disease without esophagitis; Z90.49 Acquired absence of other specified parts of digestive tract
CPT/HCPCS: 36591; 70450; 80048; 84484; 85025; 86850; 86900; 86901; 86920; 93005; 96374; 96375; 99284; J7040; P9016; A4216; J2405

== ENCOUNTER → 2024-04-30 | Outpatient (CLI) | payer MEDICAID, SELFPAY ==
[2024-04-30 15:50] LABS: ALB/GLOB Ratio 0.7 RATIO (0.9-2.4); AST(SGOT) 9 U/L (15-37); Alanine Aminotransfer ALT/SGPT 19 U/L (16-61); Albumin, Serum 2.4 g/dL (3.2-5.0); Alkaline Phosphatase 53 U/L (45-117); Anion Gap 12 (5-15); BUN 71 mg/dL (7-18); BUN/Creat Ratio 11.3 RATIO (10-20); Calcium,Total 7.3 mg/dL (8.5-10.1); Chloride 112 mmol/L (98-107); Creatinine, Serum 6.28 mg/dL (0.70-1.30); EST Glomerular Filtration Rate 10 mL/min (>60); Est Glom Filt Rate - Afr Amer 12 mL/min (>60); Globulin 3.6 g/dL (2.2-4.2); Glucose 188 mg/dL (74-106); Potassium 5.2 mmol/L (3.5-5.1); Sodium Level 138 mmol/L (136-145)
[2024-04-30 15:58] LABS: Absolute Lymphocyte Count 1.27 X10^3/uL (0.83-4.51); Absolute Neutrophil Count 4.1 X10^3/uL (2.0-7.7); Basophil# 0.04 X10^3/uL; Basophil% 0.7 % (0-1); Eosinophil# 0.11 X10^3/uL; Eosinophils% 1.9 % (0-5); Hematocrit 22.5 % (40-54); Hemoglobin 7.4 g/dL (13.0-16.5); Lymphocyte # 1.27 X10^3/ul (0.83-4.51); Lymphocyte % 21.5 % (19-41); Mean Corp Hgb Conc 32.9 g/dL (32-36); Mean Corpuscular Hgb 30.3 pg (27.0-32.0); Mean Corpuscular Volume 92.2 fL (80-94); Mean Platelet Vol. 10.3 fl (6.2-12.0); Monocyte# 0.35 X10^3/uL; Monocyte% 5.9 % (0-10); NRBC Flagged by Analyzer 0 % (0-5); Neutrophil # 4.08 X10^3/uL (2.7-7.7); Neutrophil % 69.2 % (47-70); Platelet Count 172 K/mm3 (150-450); RBC Distribution Width CV 14.4 % (11.6-14.6); RBC Distribution Width SD 48.6 fl (35.1-43.9); Red Blood Count 2.44 M/mm3 (4.6-6.2); White Blood Count 5.9 K/mm3 (4.4-11.0)
== END | disposition home or self-care (01) ==
LOC: MFPLAB 11:36
PROVIDERS: PCP Family Medicine; Visit Provider Family Medicine
DX: E87.5 Hyperkalemia (principal); D64.9 Anemia, unspecified
CPT/HCPCS: 36415; 80053; 85025

== ENCOUNTER → 2024-05-09 | Outpatient (CLI) | payer MEDICAID, SELFPAY ==
[2024-05-09 11:16] LABS: Vitamin B12 462 pg/mL (211-911)
[2024-05-09 11:19] LABS: Carbamazepine (Tegretol) 8.2 ug/mL (4.0-12.0); T4 Free Direct 0.53 ng/dL (0.76-1.46); Thyroid Stim Hormone (TSH) 0.392 uIU/mL (0.358-3.740)
[2024-05-09 11:20] LABS: Anion Gap 12 (5-15); BUN 66 mg/dL (7-18); BUN/Creat Ratio 9.9 RATIO (10-20); Calcium,Total 7.3 mg/dL (8.5-10.1); Chloride 109 mmol/L (98-107); Creatinine, Serum 6.69 mg/dL (0.70-1.30); EST Glomerular Filtration Rate 9 mL/min (>60); Est Glom Filt Rate - Afr Amer 11 mL/min (>60); Glucose 184 mg/dL (74-106); Potassium 5.2 mmol/L (3.5-5.1); Sodium Level 138 mmol/L (136-145)
[2024-05-12 20:29] LABS: Vitamin B1, Thiamine 80.9 nmol/L (66.5-200.0)
== END | disposition home or self-care (01) ==
LOC: LAB 10:28
PROVIDERS: PCP Family Medicine; Referring Provider Psychiatry & Neurology Neurology; Visit Provider Psychiatry & Neurology Neurology
DX: G62.9 Polyneuropathy, unspecified (principal); E87.5 Hyperkalemia; G50.0 Trigeminal neuralgia
CPT/HCPCS: 36415; 80048; 80156; 82607; 84425; 84439; 84443

== ENCOUNTER → 2024-05-23 | Outpatient (CLI) | payer MEDICAID, SELFPAY ==
[2024-05-23 11:39] LABS: Hematocrit 23.5 % (40-54); Hemoglobin 7.6 g/dL (13.0-16.5); Mean Corp Hgb Conc 32.3 g/dL (32-36); Mean Corpuscular Hgb 30.3 pg (27.0-32.0); Mean Corpuscular Volume 93.6 fL (80-94); Mean Platelet Vol. 10.1 fl (6.2-12.0); Platelet Count 215 K/mm3 (150-450); RBC Distribution Width CV 13.7 % (11.6-14.6); RBC Distribution Width SD 46.9 fl (35.1-43.9); Red Blood Count 2.51 M/mm3 (4.6-6.2); White Blood Count 6.4 K/mm3 (4.4-11.0)
[2024-05-23 12:17] LABS: Protein, Urine (Random) 891.7 mg/dL (<11.9); Protein:Creat Ratio 13846 mg/g CRE (0-200)
[2024-05-23 12:50] LABS: Albumin, Serum 2.6 g/dL (3.2-5.0); BUN 62 mg/dL (7-18); BUN/Creat Ratio 9.5 RATIO (10-20); Calcium,Total 7.8 mg/dL (8.5-10.1); Chloride 110 mmol/L (98-107); Creatinine, Serum 6.56 mg/dL (0.70-1.30); EST Glomerular Filtration Rate 9 mL/min (>60); Est Glom Filt Rate - Afr Amer 11 mL/min (>60); Glucose 156 mg/dL (74-106); Iron 61 ug/dL (65-175); Iron Binding Capacity,Total 263 ug/dL (250-450); PERCENT IRON SATURATION 23.2 % (15.0-55.0); Phosphorus 6.4 mg/dL (2.5-4.9); Potassium 5.8 mmol/L (3.5-5.1); Sodium Level 135 mmol/L (136-145)
== END | disposition home or self-care (01) ==
LOC: POLAB3 11:22
PROVIDERS: PCP Family Medicine; Visit Provider Internal Medicine Nephrology
DX: N18.5 Chronic kidney disease, stage 5 (principal); D64.9 Anemia, unspecified
CPT/HCPCS: 36415; 80069; 82570; 83540; 83550; 83970; 84156; 85027

== ENCOUNTER → 2024-05-31 | Outpatient (CLI) | payer MEDICAID, SELFPAY | END | disposition home or self-care (01) | LOC: LABSPEC 14:27 | PROVIDERS: PCP Family Medicine; Referring Provider Nurse Practitioner Family; Visit Provider Nurse Practitioner Family | DX: D64.9 Anemia, unspecified (principal) | CPT/HCPCS: 82274 ==

== ENCOUNTER → 2024-06-06 | Outpatient (CLI) | payer MEDICAID, SELFPAY ==
--- NOTE | 2024-06-06 13:43 | VDUE_ITS ---
Reason For Study: CKD 5 Right Lower Arm Left Arm Proximal Radial artery diameter 0.21 x 0.21 Left Brachial artery diameter 0.47 x 0.53 mm. mm. Proximal Radial artery waveform is Left Brachial artery waveform is triphasic . triphasic . Cephalic Vein at distal forearm measures Right Arm 0.14 x 0.16 mm. Right Brachial artery diameter 0.47 x 0.44 Cephalic Vein at mid forearm measures 0.14 x mm. 0.17 mm. Right Brachial artery waveform is Cephalic Vein proximal forearm measures 0.12 triphasic . x 0.12 mm. Cephalic Vein at distal forearm measures Cephalic Vein distal upper arm measures 0.15 0.13 x 0.18 mm. x 0.14 mm. Cephalic Vein at mid forearm measures 0.14 x Cephalic Vein at mid upper arm measures 0.10 0.16 mm. x 0.11 mm. Cephalic Vein proximal forearm measures 0.16 Cephalic Vein at proximal upper arm measures x 0.16 mm. 0.18 x 0.18 mm. Cephalic Vein distal upper arm measures 0.41 Proximal Basilic vein measures 0.30 x 0.29 x 0.43 mm. mm. Cephalic Vein at mid upper arm measures 0.33 Mid Basilic vein measures 0.26 x 0.25 mm. x 0.36 mm. Distal Basilic vein measures 0.26 x 0.23 mm. Cephalic Vein at proximal upper arm measures Left Lower Arm 0.29 x 0.30 mm. Proximal Radial artery diameter 0.21 x 0.24 Proximal Basilic vein measures 0.45 x 0.48 mm. mm. Proximal Radial artery waveform is Mid Basilic vein measures 0.40 x 0.48 mm. triphasic . Distal Basilic vein measures 0.42 x 0.48 mm. VL/Dialysis Vein Map PRE-OP BILAT Interpretation Summary Bilateral upper extremity arteries patent with normal waveforms and measurement s above Bilateral upper extremity veins patent with measurements above. Ordering Physician: Radha Kelley Referring Physician: Radha Kelley M.D. Performed By: Brian Gautam RVT ???
== END | disposition home or self-care (01) ==
LOC: CVS 13:40
PROVIDERS: PCP Family Medicine; Referring Provider Internal Medicine Nephrology; Visit Provider Internal Medicine Nephrology
DX: N18.5 Chronic kidney disease, stage 5 (principal)
CPT/HCPCS: 93985

== ENCOUNTER 2024-06-12 09:58 | Outpatient (CLI) | payer MEDICAID, SELFPAY ==
[2024-06-12 10:46] LABS: Albumin, Serum 2.6 g/dL (3.2-5.0); BUN 71 mg/dL (7-18); BUN/Creat Ratio 9.5 RATIO (10-20); Calcium,Total 7.5 mg/dL (8.5-10.1); Chloride 110 mmol/L (98-107); Creatinine, Serum 7.45 mg/dL (0.70-1.30); EST Glomerular Filtration Rate 8 mL/min (>60); Est Glom Filt Rate - Afr Amer 10 mL/min (>60); Glucose 149 mg/dL (74-106); Phosphorus 6.4 mg/dL (2.5-4.9); Potassium 5.7 mmol/L (3.5-5.1); Sodium Level 136 mmol/L (136-145)
== END 2024-06-12 23:59 | disposition home or self-care (01) ==
PROVIDERS: PCP Family Medicine; Visit Provider Internal Medicine Nephrology
DX: N18.5 Chronic kidney disease, stage 5 (principal); D64.9 Anemia, unspecified; Z85.038 Personal history of other malignant neoplasm of large intestine
CPT/HCPCS: 36415; 36591; 80069; 82306; 85025; A4216

== ENCOUNTER 2024-07-02 16:47 | Inpatient (IN) | payer MEDICAID, SELFPAY ==
[2024-07-02] VITALS (13 sets, daily range): BP systolic 183–216; BP diastolic 94–107; PULSE 64–92; RESP 16–19; TEMP 36.6–37; O2SAT 97–100; BMI 31.4; BMI 30.9
[2024-07-02 18:05] LABS: Hematocrit 20.9 % (40-54); Hemoglobin 6.9 g/dL (13.0-16.5); Mean Corpuscular Hgb 30.3 pg (27.0-32.0); Mean Corpuscular Volume 91.7 fL (80-94); Mean Platelet Vol. 10.5 fl (6.2-12.0); Platelet Count 158 K/mm3 (150-450); RBC Distribution Width CV 13.5 % (11.6-14.6); RBC Distribution Width SD 45.3 fl (35.1-43.9); Red Blood Count 2.28 M/mm3 (4.6-6.2)
[2024-07-02] MEDS: Nadolol 40 MG Tablet PO ×2 (18:18→23:00)
[2024-07-02 18:40] LABS: Anion Gap 10 (5-15); BUN 91 mg/dL (7-18); BUN/Creat Ratio 10.7 RATIO (10-20); Calcium,Total 7.1 mg/dL (8.5-10.1); Chloride 107 mmol/L (98-107); Creatinine, Serum 8.49 mg/dL (0.70-1.30); EST Glomerular Filtration Rate 7 mL/min (>60); Est Glom Filt Rate - Afr Amer 8 mL/min (>60); Estimated Creatinine Clearance 10.92 ml/min; Glucose 220 mg/dL (74-106); Potassium 5.4 mmol/L (3.5-5.1); Sodium Level 133 mmol/L (136-145)
[2024-07-02 22:36] LABS: Ferritin 289 ng/mL (26-388); Iron 192 ug/dL (65-175); Iron Binding Capacity,Total 188 ug/dL (250-450); PERCENT IRON SATURATION 102.1 % (15.0-55.0)
[2024-07-02 22:37] LABS: Vitamin B12 381 pg/mL (211-911)
[2024-07-02] MEDS: cloNIDine HCl 0.1 MG Tablet PO (23:00)
[2024-07-02] MEDS: carBAMazepine 200 MG Tablet 600 MG PO (23:18)
[2024-07-03] VITALS (16 sets, daily range): BP systolic 132–186; BP diastolic 61–105; PULSE 63–74; RESP 14–18; TEMP 36.1–36.9; O2SAT 94–98; BMI 30.9
[2024-07-03] MEDS: Bisacodyl 5 MG Tablet 20 MG PO (00:11)
[2024-07-03] MEDS: Furosemide 40 MG/4 ML Vial IV (00:12)
[2024-07-03] MEDS: Pantoprazole Sodium 80 MG in 0.9% Normal Saline (100mL Bag) 80 ML 10 MG CONT INF ×2 (00:12→10:39)
[2024-07-03] MEDS: 0.9% Normal Saline (1000mL) 1,000 ML 50 ML IV (00:12)
[2024-07-03] MEDS: 0.9% Saline Lock 10 ML Syringe IV ×3 (00:13→06:00)
[2024-07-03] MEDS: Metoclopramide 10 MG/2 ML Vial IV ×4 (00:14→23:20)
[2024-07-03] MEDS: Polyethylene Glycol 3350 BOWEL PREP PO (00:27)
[2024-07-03 01:11] LABS: Bedside Glucose 110 mg/dL (74-106)
[2024-07-03] MEDS: hydrALAZINE 20 MG/ML Vial 10 MG IV ×2 (04:37→09:30)
[2024-07-03 05:25] LABS: Absolute Lymphocyte Count 1.48 X10^3/uL (0.83-4.51); Absolute Neutrophil Count 4.8 X10^3/uL (2.0-7.7); Basophil# 0.03 X10^3/uL; Basophil% 0.4 % (0-1); Eosinophil# 0.09 X10^3/uL; Eosinophils% 1.3 % (0-5); Hematocrit 25.2 % (40-54); Hemoglobin 8.4 g/dL (13.0-16.5); Lymphocyte # 1.48 X10^3/ul (0.83-4.51); Lymphocyte % 21.9 % (19-41); Mean Corp Hgb Conc 33.3 g/dL (32-36); Mean Platelet Vol. 10.5 fl (6.2-12.0); Monocyte# 0.35 X10^3/uL; Monocyte% 5.2 % (0-10); NRBC Flagged by Analyzer 0 % (0-5); Neutrophil # 4.75 X10^3/uL (2.7-7.7); Neutrophil % 70.2 % (47-70); Platelet Count 180 K/mm3 (150-450); RBC Distribution Width CV 14.1 % (11.6-14.6); RBC Distribution Width SD 46.3 fl (35.1-43.9); White Blood Count 6.8 K/mm3 (4.4-11.0)
[2024-07-03 05:34] LABS: International Normalized Ratio 1.2
[2024-07-03 05:58] LABS: Partial Thromboplast Time 35.5 Seconds (24.1-36.2)
[2024-07-03 06:30] LABS: Carbamazepine (Tegretol) 7.5 ug/mL (4.0-12.0)
[2024-07-03 06:44] LABS: ALB/GLOB Ratio 0.7 RATIO (0.9-2.4); AST(SGOT) 8 U/L (15-37); Alanine Aminotransfer ALT/SGPT 15 U/L (16-61); Albumin, Serum 2.7 g/dL (3.2-5.0); Alkaline Phosphatase 43 U/L (45-117); Anion Gap 11 (5-15); BUN 89 mg/dL (7-18); BUN/Creat Ratio 10.3 RATIO (10-20); Calcium,Total 7.6 mg/dL (8.5-10.1); Chloride 108 mmol/L (98-107); Creatinine, Serum 8.67 mg/dL (0.70-1.30); EST Glomerular Filtration Rate 7 mL/min (>60); Est Glom Filt Rate - Afr Amer 8 mL/min (>60); Estimated Creatinine Clearance 10.62 ml/min; Globulin 3.7 g/dL (2.2-4.2); Glucose 117 mg/dL (74-106); Magnesium 1.3 mg/dL (1.6-2.6); Potassium 5.5 mmol/L (3.5-5.1); Protein, Total 6.4 g/dL (6.4-8.2); Sodium Level 135 mmol/L (136-145); Thyroid Stim Hormone (TSH) 0.632 uIU/mL (0.358-3.740)
[2024-07-03 06:49] LABS: Bedside Glucose 115 mg/dL (74-106)
[2024-07-03 09:21] LABS: Hemoglobin A1c 6.4 % (3.8-5.6)
[2024-07-03] MEDS: Acetaminophen 325 MG Tablet 650 MG PO ×2 (15:20→23:27)
[2024-07-03] MEDS: Magnesium Sulfate 4gm/100mL 4 GM/100 ML IV.SOLN. IV (16:47)
[2024-07-03] MEDS: SEVELAMER CARBONATE 800 MG TABLET PO (17:58)
[2024-07-03 18:35] LABS: Bedside Glucose 133 mg/dL (74-106)
[2024-07-03] MEDS: Gabapentin 100 MG Capsule PO (21:14)
[2024-07-03] MEDS: Atorvastatin Calcium 80 MG Tablet PO (21:15)
[2024-07-03] MEDS: Nadolol 40 MG Tablet PO (21:15)
[2024-07-03] MEDS: Nadolol 20 MG Tablet PO (21:17)
[2024-07-03] MEDS: cloNIDine HCl 0.1 MG Tablet PO (21:17)
[2024-07-03] MEDS: Pantoprazole Sodium 40 MG Tablet PO (21:18)
[2024-07-03] MEDS: carBAMazepine 200 MG Tablet 600 MG PO (21:19)
[2024-07-03 23:48] LABS: Bedside Glucose 137 mg/dL (74-106)
[2024-07-04] VITALS (12 sets, daily range): BP systolic 133–189; BP diastolic 68–93; PULSE 60–70; RESP 16–18; TEMP 36–36.7; O2SAT 96–100; BMI 30.8; BMI 30.9
[2024-07-04] MEDS: hydrALAZINE 20 MG/ML Vial 10 MG IV ×3 (03:42→15:06)
[2024-07-04] MEDS: cloNIDine HCl 0.1 MG Tablet PO ×3 (06:27→20:37)
[2024-07-04] MEDS: Metoclopramide 10 MG/2 ML Vial IV ×4 (06:27→23:30)
[2024-07-04 06:33] LABS: Hematocrit 26.8 % (40-54); Hemoglobin 8.9 g/dL (13.0-16.5); Mean Corp Hgb Conc 33.2 g/dL (32-36); Mean Corpuscular Hgb 29.9 pg (27.0-32.0); Mean Corpuscular Volume 89.9 fL (80-94); Mean Platelet Vol. 10.3 fl (6.2-12.0); Platelet Count 219 K/mm3 (150-450); RBC Distribution Width CV 14.3 % (11.6-14.6); RBC Distribution Width SD 46.7 fl (35.1-43.9); Red Blood Count 2.98 M/mm3 (4.6-6.2); White Blood Count 9.6 K/mm3 (4.4-11.0)
[2024-07-04 06:49] LABS: Bedside Glucose 124 mg/dL (74-106)
[2024-07-04 07:07] LABS: International Normalized Ratio 1.2; Prothrombin Time (Protime)PT. 15.4 SECONDS (11.7-14.9)
[2024-07-04 07:16] LABS: Anion Gap 11 (5-15); BUN 86 mg/dL (7-18); BUN/Creat Ratio 9.8 RATIO (10-20); Chloride 106 mmol/L (98-107); Creatinine, Serum 8.77 mg/dL (0.70-1.30); EST Glomerular Filtration Rate 7 mL/min (>60); Est Glom Filt Rate - Afr Amer 8 mL/min (>60); Estimated Creatinine Clearance 10.49 ml/min; Glucose 138 mg/dL (74-106); Magnesium 2.1 mg/dL (1.6-2.6); Phosphorus 8.1 mg/dL (2.5-4.9); Sodium Level 132 mmol/L (136-145)
[2024-07-04] MEDS: carBAMazepine 200 MG Tablet 600 MG PO ×2 (10:52→20:34)
[2024-07-04] MEDS: Nadolol 40 MG Tablet PO ×2 (10:53→20:40)
[2024-07-04] MEDS: Nadolol 20 MG Tablet PO ×2 (10:53→20:39)
[2024-07-04] MEDS: Pantoprazole Sodium 40 MG Tablet PO ×2 (10:59→20:37)
[2024-07-04] MEDS: Acetaminophen 325 MG Tablet 650 MG PO (11:00)
[2024-07-04] MEDS: 0.9% Saline Lock 10 ML Syringe IV ×4 (11:06→18:44)
[2024-07-04 11:47] LABS: Bedside Glucose 126 mg/dL (74-106)
[2024-07-04] MEDS: Sertraline 100 MG Tablet PO (12:24)
[2024-07-04] MEDS: Furosemide 40 MG Tablet PO (12:24)
[2024-07-04] MEDS: Calcitriol 0.25 MCG Capsule 0.5 MCG PO (12:24)
[2024-07-04] MEDS: Cholecalciferol (VIT D3) 25 MCG TABLET (1,000 UNITS) PO (12:24)
[2024-07-04] MEDS: Spironolactone 50 MG Tablet 100 MG PO (12:24)
[2024-07-04] MEDS: SEVELAMER CARBONATE 800 MG TABLET PO (13:23)
[2024-07-04 16:33] LABS: Bedside Glucose 214 mg/dL (74-106)
[2024-07-04] MEDS: Insulin Lispro 100 UNIT/ML INSULN.PEN SC ×2 (17:56→20:44)
[2024-07-04] MEDS: Ondansetron 4 MG/2 ML Vial IV (18:44)
[2024-07-04] MEDS: ARIPiprazole 2 MG Tablet PO (20:37)
[2024-07-04] MEDS: Gabapentin 100 MG Capsule PO (20:38)
[2024-07-04] MEDS: Atorvastatin Calcium 80 MG Tablet PO (23:30)
[2024-07-04 23:40] LABS: Bedside Glucose 193 mg/dL (74-106)
[2024-07-05] VITALS (24 sets, daily range): BP systolic 122–213; BP diastolic 64–91; PULSE 53–65; RESP 14–18; TEMP 36.2–36.8; O2SAT 96–100; BMI 31.0; BMI 30.9; BMI 30.8; BMI 30.5
[2024-07-05] MEDS: Metoclopramide 10 MG/2 ML Vial IV (06:05)
[2024-07-05] MEDS: cloNIDine HCl 0.1 MG Tablet PO ×2 (06:05→21:44)
[2024-07-05 06:42] LABS: Absolute Lymphocyte Count 1.36 X10^3/uL (0.83-4.51); Absolute Neutrophil Count 5.1 X10^3/uL (2.0-7.7); Basophil# 0.03 X10^3/uL; Basophil% 0.4 % (0-1); Eosinophil# 0.12 X10^3/uL; Eosinophils% 1.7 % (0-5); Hematocrit 24.2 % (40-54); Hemoglobin 8.1 g/dL (13.0-16.5); Lymphocyte # 1.36 X10^3/ul (0.83-4.51); Mean Corp Hgb Conc 33.5 g/dL (32-36); Mean Corpuscular Hgb 29.6 pg (27.0-32.0); Mean Corpuscular Volume 88.3 fL (80-94); Mean Platelet Vol. 10.2 fl (6.2-12.0); Monocyte# 0.49 X10^3/uL; Monocyte% 6.8 % (0-10); NRBC Flagged by Analyzer 0 % (0-5); Neutrophil # 5.11 X10^3/uL (2.7-7.7); Neutrophil % 71.4 % (47-70); Platelet Count 170 K/mm3 (150-450); RBC Distribution Width CV 14.3 % (11.6-14.6); RBC Distribution Width SD 46.1 fl (35.1-43.9); Red Blood Count 2.74 M/mm3 (4.6-6.2); White Blood Count 7.2 K/mm3 (4.4-11.0)
[2024-07-05 06:48] LABS: Bedside Glucose 136 mg/dL (74-106)
[2024-07-05] MEDS: Nadolol 40 MG Tablet PO ×2 (08:45→21:45)
[2024-07-05] MEDS: carBAMazepine 200 MG Tablet 600 MG PO ×2 (08:46→21:43)
[2024-07-05] MEDS: Pantoprazole Sodium 40 MG Tablet PO ×2 (08:46→21:43)
[2024-07-05] MEDS: 0.9% Saline Lock 10 ML Syringe IV ×5 (08:53→19:26)
[2024-07-05] MEDS: Ondansetron 4 MG/2 ML Vial IV (08:53)
[2024-07-05] MEDS: Acetaminophen 325 MG Tablet 650 MG PO ×2 (08:53→19:25)
[2024-07-05] MEDS: hydrALAZINE 20 MG/ML Vial 10 MG IV ×3 (08:54→19:26)
[2024-07-05 08:59] LABS: ALB/GLOB Ratio 0.8 RATIO (0.9-2.4); AST(SGOT) 5 U/L (15-37); Alanine Aminotransfer ALT/SGPT 11 U/L (16-61); Albumin, Serum 2.5 g/dL (3.2-5.0); Alkaline Phosphatase 48 U/L (45-117); Anion Gap 10 (5-15); BUN 90 mg/dL (7-18); BUN/Creat Ratio 9.9 RATIO (10-20); Chloride 109 mmol/L (98-107); EST Glomerular Filtration Rate 6 mL/min (>60); Est Glom Filt Rate - Afr Amer 8 mL/min (>60); Estimated Creatinine Clearance 10.12 ml/min; Globulin 3.3 g/dL (2.2-4.2); Glucose 134 mg/dL (74-106); Potassium 5.4 mmol/L (3.5-5.1); Protein, Total 5.8 g/dL (6.4-8.2); Sodium Level 133 mmol/L (136-145)
[2024-07-05] MEDS: Nadolol 20 MG Tablet PO ×2 (10:21→21:45)
[2024-07-05] MEDS: diazePAM 2 MG Tablet PO ×2 (10:21→19:26)
[2024-07-05 11:52] LABS: Bedside Glucose 132 mg/dL (74-106)
[2024-07-05 12:00] LABS: Bedside Glucose 129 mg/dL (74-106)
[2024-07-05] MEDS: Bupivacaine Mpf 0.5% 30 ML VIAL (12:45)
[2024-07-05] MEDS: Heparin 10,000 UNITS/10 ML Vial 10000 UNITS (12:45)
[2024-07-05] MEDS: Cefazolin 3 GM in Syringe 1 EACH IV (12:52)
[2024-07-05 14:24] LABS: Bedside Glucose 174 mg/dL (74-106)
[2024-07-05] MEDS: 0.9% Normal Saline 1,000 ML IV.SOLN. 1000 ML OPERA.SITE (16:46)
[2024-07-05] MEDS: PureFlow B 2K Dialysis Soln 1 BAG 6 BAG PF (16:50)
[2024-07-05 17:14] LABS: Bedside Glucose 130 mg/dL (74-106)
[2024-07-05] MEDS: Heparin 10,000 UNITS/10 ML Vial IV (18:06)
[2024-07-05 19:15] LABS: Hepatitis B Surface Antigen Non-Reactive (Nonreactive)
[2024-07-05] MEDS: Gabapentin 100 MG Capsule PO (21:37)
[2024-07-05] MEDS: Atorvastatin Calcium 80 MG Tablet PO (21:40)
[2024-07-05] MEDS: Insulin Lispro 100 UNIT/ML INSULN.PEN SC (21:40)
[2024-07-05] MEDS: ARIPiprazole 2 MG Tablet PO (21:40)
[2024-07-05 22:12] LABS: Bedside Glucose 185 mg/dL (74-106)
[2024-07-06] VITALS (16 sets, daily range): BP systolic 135–234; BP diastolic 71–103; PULSE 56–69; RESP 14–18; TEMP 35.9–36.9; O2SAT 98–100; BMI 31.4; BMI 31.2
[2024-07-06] MEDS: Acetaminophen 325 MG Tablet 650 MG PO (06:36)
[2024-07-06] MEDS: cloNIDine HCl 0.1 MG Tablet PO ×3 (06:37→21:52)
[2024-07-06 06:56] LABS: Absolute Lymphocyte Count 1.02 X10^3/uL (0.83-4.51); Absolute Neutrophil Count 3.7 X10^3/uL (2.0-7.7); Basophil# 0.01 X10^3/uL; Basophil% 0.2 % (0-1); Eosinophil# 0.08 X10^3/uL; Eosinophils% 1.6 % (0-5); Hematocrit 24.1 % (40-54); Hemoglobin 7.9 g/dL (13.0-16.5); Lymphocyte # 1.02 X10^3/ul (0.83-4.51); Lymphocyte % 19.8 % (19-41); Mean Corp Hgb Conc 32.8 g/dL (32-36); Mean Corpuscular Hgb 29.3 pg (27.0-32.0); Mean Corpuscular Volume 89.3 fL (80-94); Mean Platelet Vol. 10.5 fl (6.2-12.0); Monocyte# 0.29 X10^3/uL; Monocyte% 5.6 % (0-10); NRBC Flagged by Analyzer 0 % (0-5); Neutrophil # 3.73 X10^3/uL (2.7-7.7); Neutrophil % 72.4 % (47-70); Platelet Count 150 K/mm3 (150-450); RBC Distribution Width CV 14.4 % (11.6-14.6); RBC Distribution Width SD 46.5 fl (35.1-43.9); White Blood Count 5.2 K/mm3 (4.4-11.0)
[2024-07-06 06:59] LABS: Bedside Glucose 126 mg/dL (74-106)
[2024-07-06 07:47] LABS: ALB/GLOB Ratio 0.8 RATIO (0.9-2.4); AST(SGOT) 3 U/L (15-37); Alanine Aminotransfer ALT/SGPT 8 U/L (16-61); Albumin, Serum 2.4 g/dL (3.2-5.0); Alkaline Phosphatase 45 U/L (45-117); Anion Gap 8 (5-15); BUN 77 mg/dL (7-18); BUN/Creat Ratio 9.4 RATIO (10-20); Chloride 110 mmol/L (98-107); Creatinine, Serum 8.16 mg/dL (0.70-1.30); EST Glomerular Filtration Rate 7 mL/min (>60); Est Glom Filt Rate - Afr Amer 9 mL/min (>60); Estimated Creatinine Clearance 11.38 ml/min; Glucose 127 mg/dL (74-106); Potassium 4.6 mmol/L (3.5-5.1); Protein, Total 5.4 g/dL (6.4-8.2); Sodium Level 135 mmol/L (136-145)
[2024-07-06] MEDS: Cholecalciferol (VIT D3) 25 MCG TABLET (1,000 UNITS) PO (08:19)
[2024-07-06] MEDS: Calcitriol 0.25 MCG Capsule 0.5 MCG PO (08:19)
[2024-07-06] MEDS: Folic Acid/Vitamin B Comp W-C 1 Capsule 1 CAP PO (08:20)
[2024-07-06] MEDS: Furosemide 40 MG Tablet PO (08:20)
[2024-07-06] MEDS: Pantoprazole Sodium 40 MG Tablet PO ×2 (08:20→21:51)
[2024-07-06] MEDS: Sertraline 100 MG Tablet PO (08:20)
[2024-07-06] MEDS: carBAMazepine 200 MG Tablet 600 MG PO ×2 (08:21→21:49)
[2024-07-06] MEDS: Spironolactone 50 MG Tablet 100 MG PO (08:24)
[2024-07-06] MEDS: SEVELAMER CARBONATE 800 MG TABLET PO ×2 (09:01→18:09)
[2024-07-06] MEDS: Insulin Glargine-YFGN 100 UNIT/ML Pen 12 UNIT SC (09:01)
[2024-07-06] MEDS: diazePAM 2 MG Tablet PO (10:04)
[2024-07-06 10:44] LABS: Bedside Glucose 218 mg/dL (74-106)
[2024-07-06 11:20] LABS: Hemoglobin A1c 6.4 % (3.8-5.6)
[2024-07-06 11:22] LABS: Thyroid Stim Hormone (TSH) 0.294 uIU/mL (0.358-3.740)
[2024-07-06] MEDS: Aspirin 325 MG Tablet PO (12:46)
[2024-07-06 12:49] LABS: T4 Free Direct 0.61 ng/dL (0.76-1.46)
[2024-07-06 12:57] LABS: Bedside Glucose 182 mg/dL (74-106)
[2024-07-06] MEDS: Meclizine HCl 25 MG Tablet PO (13:07)
[2024-07-06] MEDS: Heparin 10,000 UNITS/10 ML Vial IV (15:04)
[2024-07-06] MEDS: PureFlow B 2K Dialysis Soln 1 BAG 6 BAG PF (15:04)
[2024-07-06] MEDS: 0.9% Normal Saline 1,000 ML IV.SOLN. 1000 ML OPERA.SITE (15:04)
[2024-07-06] MEDS: Nadolol 20 MG Tablet PO (16:21)
[2024-07-06] MEDS: Nadolol 40 MG Tablet PO (16:21)
[2024-07-06 17:20] LABS: Bedside Glucose 110 mg/dL (74-106)
[2024-07-06] MEDS: Gabapentin 100 MG Capsule PO (21:50)
[2024-07-06] MEDS: Atorvastatin Calcium 80 MG Tablet PO (21:54)
[2024-07-06] MEDS: ARIPiprazole 2 MG Tablet PO (21:56)
[2024-07-06] MEDS: 0.9% Saline Lock 10 ML Syringe IV (21:57)
[2024-07-06] MEDS: Insulin Lispro 100 UNIT/ML INSULN.PEN SC (22:01)
[2024-07-06 22:44] LABS: Bedside Glucose 171 mg/dL (74-106)
[2024-07-07 03:10] VITALS: BP 164/83; PULSE 61; RESP 16; TEMP 36.8; O2SAT 98
[2024-07-07] MEDS: Cosyntropin 0.25 MG in 0.9% Normal Saline (Pres. free 4 ML 150 MG IV (06:00)
[2024-07-07] MEDS: cloNIDine HCl 0.1 MG Tablet PO ×3 (06:00→22:19)
[2024-07-07 06:20] LABS: Absolute Lymphocyte Count 1.11 X10^3/uL (0.83-4.51); Basophil# 0.02 X10^3/uL; Basophil% 0.4 % (0-1); Eosinophil# 0.09 X10^3/uL; Hematocrit 22.6 % (40-54); Hemoglobin 7.5 g/dL (13.0-16.5); Lymphocyte # 1.11 X10^3/ul (0.83-4.51); Lymphocyte % 24.3 % (19-41); Mean Corp Hgb Conc 33.2 g/dL (32-36); Mean Corpuscular Hgb 29.3 pg (27.0-32.0); Mean Corpuscular Volume 88.3 fL (80-94); Mean Platelet Vol. 10.1 fl (6.2-12.0); Monocyte# 0.31 X10^3/uL; Monocyte% 6.8 % (0-10); NRBC Flagged by Analyzer 0 % (0-5); Neutrophil # 3.01 X10^3/uL (2.7-7.7); Neutrophil % 66.1 % (47-70); Platelet Count 120 K/mm3 (150-450); RBC Distribution Width SD 45.5 fl (35.1-43.9); Red Blood Count 2.56 M/mm3 (4.6-6.2); White Blood Count 4.6 K/mm3 (4.4-11.0)
[2024-07-07] MEDS: Furosemide 40 MG Tablet PO (06:54)
[2024-07-07 07:14] LABS: Bedside Glucose 87 mg/dL (74-106)
[2024-07-07 07:28] LABS: ALB/GLOB Ratio 0.7 RATIO (0.9-2.4); AST(SGOT) 7 U/L (15-37); Alanine Aminotransfer ALT/SGPT < 6 U/L (16-61); Albumin, Serum 2.2 g/dL (3.2-5.0); Alkaline Phosphatase 45 U/L (45-117); Anion Gap 10 (5-15); BUN 60 mg/dL (7-18); Calcium,Total 7.8 mg/dL (8.5-10.1); Chloride 106 mmol/L (98-107); Cholesterol 152 mg/dL (200); Creatinine, Serum 6.69 mg/dL (0.70-1.30); EST Glomerular Filtration Rate 9 mL/min (>60); Est Glom Filt Rate - Afr Amer 11 mL/min (>60); Estimated Creatinine Clearance 13.84 ml/min; Globulin 3.2 g/dL (2.2-4.2); Glucose 92 mg/dL (74-106); High Density Lipoprotein 34 mg/dL; Potassium 4.3 mmol/L (3.5-5.1); Protein, Total 5.4 g/dL (6.4-8.2); Sodium Level 135 mmol/L (136-145); Triglycerides 244 mg/dL; Very Low Density Lipoprotein 49 mg/dL (5-40)
[2024-07-07 08:38] VITALS: BP 170/85; PULSE 66; RESP 16; TEMP 36.6; O2SAT 100
[2024-07-07] MEDS: carBAMazepine 200 MG Tablet 600 MG PO ×2 (08:40→22:19)
[2024-07-07] MEDS: Cholecalciferol (VIT D3) 25 MCG TABLET (1,000 UNITS) PO (08:42)
[2024-07-07] MEDS: Aspirin 81 MG TAB.CHEW PO (08:42)
[2024-07-07] MEDS: Calcitriol 0.25 MCG Capsule 0.5 MCG PO (08:43)
[2024-07-07] MEDS: Nadolol 20 MG Tablet PO ×2 (08:43→20:20)
[2024-07-07] MEDS: Nadolol 40 MG Tablet PO ×2 (08:43→20:19)
[2024-07-07] MEDS: SEVELAMER CARBONATE 800 MG TABLET PO ×3 (08:43→16:06)
[2024-07-07] MEDS: Pantoprazole Sodium 40 MG Tablet PO ×2 (08:44→22:23)
[2024-07-07] MEDS: Folic Acid/Vitamin B Comp W-C 1 Capsule 1 CAP PO (08:44)
[2024-07-07] MEDS: Sertraline 100 MG Tablet PO (08:45)
[2024-07-07] MEDS: Acetaminophen 325 MG Tablet 650 MG PO ×2 (08:54→20:20)
[2024-07-07 11:00] VITALS: O2SAT 97
[2024-07-07 11:05] VITALS: BMI 31.2
[2024-07-07] MEDS: Insulin Glargine-YFGN 100 UNIT/ML Pen 12 UNIT SC (12:19)
[2024-07-07] MEDS: Spironolactone 50 MG Tablet 100 MG PO (12:20)
[2024-07-07] MEDS: diazePAM 2 MG Tablet PO (12:27)
[2024-07-07 14:30] VITALS: BP 187/85; PULSE 65; RESP 14; TEMP 36.9; O2SAT 99
[2024-07-07] MEDS: Insulin Lispro 100 UNIT/ML INSULN.PEN SC (16:06)
[2024-07-07 16:41] LABS: Bedside Glucose 154 mg/dL (74-106)
[2024-07-07 16:41] LABS: Bedside Glucose 189 mg/dL (74-106)
[2024-07-07 20:00] VITALS: BP 183/85; PULSE 66; RESP 16; TEMP 36.7; O2SAT 98
[2024-07-07] MEDS: 0.9% Saline Lock 10 ML Syringe IV (20:21)
[2024-07-07] MEDS: Gabapentin 100 MG Capsule PO (22:19)
[2024-07-07] MEDS: Atorvastatin Calcium 80 MG Tablet PO (22:22)
[2024-07-07] MEDS: ARIPiprazole 2 MG Tablet PO (22:51)
[2024-07-08] VITALS (19 sets, daily range): BP systolic 137–234; BP diastolic 67–105; PULSE 55–98; RESP 12–18; TEMP 36.1–36.8; O2SAT 98–100; BMI 31.3; BMI 30.8
[2024-07-08 00:51] LABS: Bedside Glucose 136 mg/dL (74-106)
[2024-07-08 06:03] LABS: Absolute Lymphocyte Count 1.15 X10^3/uL (0.83-4.51); Absolute Neutrophil Count 2.7 X10^3/uL (2.0-7.7); Basophil# 0.03 X10^3/uL; Basophil% 0.7 % (0-1); Eosinophil# 0.08 X10^3/uL; Eosinophils% 1.9 % (0-5); Hematocrit 21.9 % (40-54); Hemoglobin 7.3 g/dL (13.0-16.5); Lymphocyte # 1.15 X10^3/ul (0.83-4.51); Lymphocyte % 26.7 % (19-41); Mean Corp Hgb Conc 33.3 g/dL (32-36); Mean Corpuscular Hgb 29.4 pg (27.0-32.0); Mean Corpuscular Volume 88.3 fL (80-94); Mean Platelet Vol. 10.2 fl (6.2-12.0); Monocyte# 0.29 X10^3/uL; Monocyte% 6.7 % (0-10); NRBC Flagged by Analyzer 0 % (0-5); Neutrophil # 2.73 X10^3/uL (2.7-7.7); Neutrophil % 63.3 % (47-70); Platelet Count 112 K/mm3 (150-450); RBC Distribution Width CV 13.9 % (11.6-14.6); RBC Distribution Width SD 44.8 fl (35.1-43.9); Red Blood Count 2.48 M/mm3 (4.6-6.2); White Blood Count 4.3 K/mm3 (4.4-11.0)
[2024-07-08 06:34] LABS: ALB/GLOB Ratio 0.7 RATIO (0.9-2.4); AST(SGOT) 7 U/L (15-37); Alanine Aminotransfer ALT/SGPT < 6 U/L (16-61); Albumin, Serum 2.2 g/dL (3.2-5.0); Alkaline Phosphatase 45 U/L (45-117); Anion Gap 9 (5-15); BUN 69 mg/dL (7-18); BUN/Creat Ratio 9.5 RATIO (10-20); Calcium,Total 7.7 mg/dL (8.5-10.1); Chloride 103 mmol/L (98-107); EST Glomerular Filtration Rate 8 mL/min (>60); Est Glom Filt Rate - Afr Amer 10 mL/min (>60); Estimated Creatinine Clearance 12.69 ml/min; Globulin 3.2 g/dL (2.2-4.2); Glucose 172 mg/dL (74-106); Potassium 4.3 mmol/L (3.5-5.1); Protein, Total 5.4 g/dL (6.4-8.2); Sodium Level 132 mmol/L (136-145)
[2024-07-08] MEDS: cloNIDine HCl 0.1 MG Tablet PO ×3 (06:37→22:10)
[2024-07-08] MEDS: Furosemide 40 MG Tablet PO (06:37)
[2024-07-08] MEDS: Acetaminophen 325 MG Tablet 650 MG PO ×3 (06:38→22:13)
[2024-07-08] MEDS: Insulin Lispro 100 UNIT/ML INSULN.PEN SC ×2 (06:46→22:09)
[2024-07-08 08:36] LABS: Phosphorus 6.1 mg/dL (2.5-4.9)
[2024-07-08] MEDS: Insulin Glargine-YFGN 100 UNIT/ML Pen 12 UNIT SC (09:17)
[2024-07-08] MEDS: Heparin 10,000 UNITS/10 ML Vial IV (10:28)
[2024-07-08] MEDS: PureFlow B 2K Dialysis Soln 1 BAG 6 BAG PF (10:28)
[2024-07-08] MEDS: 0.9% Normal Saline 1,000 ML IV.SOLN. 1000 ML OPERA.SITE (10:28)
[2024-07-08] MEDS: 0.9% Saline Lock 10 ML Syringe IV (10:28)
[2024-07-08] MEDS: Aspirin 81 MG TAB.CHEW PO (10:59)
[2024-07-08] MEDS: Nadolol 40 MG Tablet PO ×2 (10:59→20:14)
[2024-07-08] MEDS: Cholecalciferol (VIT D3) 25 MCG TABLET (1,000 UNITS) PO (11:00)
[2024-07-08] MEDS: carBAMazepine 200 MG Tablet 600 MG PO ×2 (11:00→22:12)
[2024-07-08] MEDS: Nadolol 20 MG Tablet PO ×2 (11:00→20:14)
[2024-07-08] MEDS: Calcitriol 0.25 MCG Capsule 0.5 MCG PO (11:00)
[2024-07-08] MEDS: Pantoprazole Sodium 40 MG Tablet PO ×2 (11:00→22:12)
[2024-07-08] MEDS: Sertraline 100 MG Tablet PO (11:00)
[2024-07-08] MEDS: SEVELAMER CARBONATE 800 MG TABLET PO ×3 (11:00→17:03)
[2024-07-08] MEDS: Folic Acid/Vitamin B Comp W-C 1 Capsule 1 CAP PO (11:00)
[2024-07-08] MEDS: Spironolactone 50 MG Tablet 100 MG PO (11:01)
[2024-07-08 11:29] LABS: Bedside Glucose 144 mg/dL (74-106)
[2024-07-08 11:29] LABS: Bedside Glucose 161 mg/dL (74-106)
[2024-07-08] MEDS: Losartan Potassium 50 MG Tablet PO (14:04)
[2024-07-08 16:23] LABS: Bedside Glucose 137 mg/dL (74-106)
[2024-07-08] MEDS: hydrALAZINE 20 MG/ML Vial 5 MG IV (17:15)
[2024-07-08] MEDS: hydrALAZINE 20 MG/ML Vial 10 MG IV (18:42)
[2024-07-08] MEDS: ARIPiprazole 2 MG Tablet PO (22:09)
[2024-07-08] MEDS: Atorvastatin Calcium 80 MG Tablet PO (22:10)
[2024-07-08] MEDS: Gabapentin 100 MG Capsule PO (22:12)
[2024-07-09] VITALS (7 sets, daily range): BP systolic 177–208; BP diastolic 84–92; PULSE 57–62; RESP 14–16; TEMP 36.6–36.8; O2SAT 97–100; BMI 31.6
[2024-07-09] MEDS: 0.9% Saline Lock 10 ML Syringe IV ×2 (03:21→22:38)
[2024-07-09] MEDS: Morphine 2 MG/ML Syringe IV (03:21)
[2024-07-09] MEDS: hydrALAZINE 20 MG/ML Vial 10 MG IV (03:28)
[2024-07-09] MEDS: cloNIDine HCl 0.1 MG Tablet PO ×3 (06:26→22:34)
[2024-07-09] MEDS: Acetaminophen 325 MG Tablet 650 MG PO ×2 (06:27→20:04)
[2024-07-09] MEDS: Furosemide 40 MG Tablet PO (06:27)
[2024-07-09 06:51] LABS: Bedside Glucose 138 mg/dL (74-106)
[2024-07-09 07:00] LABS: Absolute Lymphocyte Count 1.17 X10^3/uL (0.83-4.51); Basophil# 0.02 X10^3/uL; Basophil% 0.4 % (0-1); Eosinophil# 0.14 X10^3/uL; Hemoglobin 7.4 g/dL (13.0-16.5); Lymphocyte # 1.17 X10^3/ul (0.83-4.51); Lymphocyte % 25.4 % (19-41); Mean Corp Hgb Conc 33.6 g/dL (32-36); Mean Corpuscular Hgb 29.1 pg (27.0-32.0); Mean Corpuscular Volume 86.6 fL (80-94); Mean Platelet Vol. 10.6 fl (6.2-12.0); Monocyte# 0.29 X10^3/uL; Monocyte% 6.3 % (0-10); NRBC Flagged by Analyzer 0 % (0-5); Neutrophil # 2.96 X10^3/uL (2.7-7.7); Neutrophil % 64.2 % (47-70); Platelet Count 147 K/mm3 (150-450); RBC Distribution Width CV 13.8 % (11.6-14.6); RBC Distribution Width SD 43.2 fl (35.1-43.9); Red Blood Count 2.54 M/mm3 (4.6-6.2); White Blood Count 4.6 K/mm3 (4.4-11.0)
[2024-07-09 07:30] LABS: ALB/GLOB Ratio 0.7 RATIO (0.9-2.4); AST(SGOT) 20 U/L (15-37); Alanine Aminotransfer ALT/SGPT < 6 U/L (16-61); Albumin, Serum 2.2 g/dL (3.2-5.0); Alkaline Phosphatase 41 U/L (45-117); Anion Gap 7 (5-15); BUN 51 mg/dL (7-18); Calcium,Total 7.9 mg/dL (8.5-10.1); Chloride 102 mmol/L (98-107); Creatinine, Serum 5.66 mg/dL (0.70-1.30); EST Glomerular Filtration Rate 11 mL/min (>60); Est Glom Filt Rate - Afr Amer 14 mL/min (>60); Estimated Creatinine Clearance 16.43 ml/min; Globulin 3.1 g/dL (2.2-4.2); Glucose 139 mg/dL (74-106); Potassium 4.3 mmol/L (3.5-5.1); Protein, Total 5.3 g/dL (6.4-8.2); Sodium Level 132 mmol/L (136-145)
[2024-07-09] MEDS: hydrALAZINE 25 MG Tablet PO ×2 (08:40→22:33)
[2024-07-09] MEDS: carBAMazepine 200 MG Tablet 600 MG PO ×2 (08:41→22:38)
[2024-07-09] MEDS: Folic Acid/Vitamin B Comp W-C 1 Capsule 1 CAP PO (08:41)
[2024-07-09] MEDS: Cholecalciferol (VIT D3) 25 MCG TABLET (1,000 UNITS) PO (08:41)
[2024-07-09] MEDS: Aspirin 81 MG TAB.CHEW PO (08:42)
[2024-07-09] MEDS: Calcitriol 0.25 MCG Capsule 0.5 MCG PO (08:42)
[2024-07-09] MEDS: Sertraline 100 MG Tablet PO (08:42)
[2024-07-09] MEDS: Nadolol 40 MG Tablet PO ×2 (08:42→20:04)
[2024-07-09] MEDS: Losartan Potassium 50 MG Tablet PO (08:42)
[2024-07-09] MEDS: SEVELAMER CARBONATE 800 MG TABLET PO (08:42)
[2024-07-09] MEDS: Pantoprazole Sodium 40 MG Tablet PO ×2 (08:42→22:33)
[2024-07-09] MEDS: Nadolol 20 MG Tablet PO ×2 (08:43→20:03)
[2024-07-09] MEDS: Insulin Glargine-YFGN 100 UNIT/ML Pen 12 UNIT SC (08:43)
[2024-07-09 08:47] LABS: Bedside Glucose 191 mg/dL (74-106)
[2024-07-09] MEDS: diazePAM 2 MG Tablet PO (10:04)
[2024-07-09] MEDS: Insulin Lispro 100 UNIT/ML INSULN.PEN SC ×3 (11:09→22:44)
[2024-07-09 11:58] LABS: Bedside Glucose 188 mg/dL (74-106)
[2024-07-09] MEDS: Meclizine 12.5 MG Tablet PO (11:59)
[2024-07-09] MEDS: Spironolactone 50 MG Tablet 100 MG PO (14:36)
[2024-07-09] MEDS: SEVELAMER CARBONATE 800 MG TABLET 1600 MG PO (16:45)
[2024-07-09 17:05] LABS: Bedside Glucose 161 mg/dL (74-106)
[2024-07-09] MEDS: Gabapentin 100 MG Capsule PO (22:34)
[2024-07-09] MEDS: ARIPiprazole 2 MG Tablet PO (22:36)
[2024-07-09] MEDS: Atorvastatin Calcium 80 MG Tablet PO (22:37)
[2024-07-10] VITALS (13 sets, daily range): BP systolic 122–214; BP diastolic 83–93; PULSE 52–63; RESP 12–16; TEMP 36.6–36.8; O2SAT 95–100; BMI 31.9; BMI 32.1; BMI 30.8
[2024-07-10 02:10] LABS: Bedside Glucose 164 mg/dL (74-106)
[2024-07-10] MEDS: cloNIDine HCl 0.1 MG Tablet PO ×2 (06:28→14:23)
[2024-07-10] MEDS: Furosemide 40 MG Tablet PO (06:28)
[2024-07-10 07:16] LABS: Bedside Glucose 149 mg/dL (74-106)
[2024-07-10] MEDS: hydrALAZINE 25 MG Tablet PO (08:59)
[2024-07-10 09:05] LABS: Hematocrit 24.9 % (40-54); Hemoglobin 8.6 g/dL (13.0-16.5); Mean Corp Hgb Conc 34.5 g/dL (32-36); Mean Corpuscular Hgb 30.2 pg (27.0-32.0); Mean Corpuscular Volume 87.4 fL (80-94); Mean Platelet Vol. 10.3 fl (6.2-12.0); Platelet Count 168 K/mm3 (150-450); RBC Distribution Width CV 13.9 % (11.6-14.6); RBC Distribution Width SD 44.2 fl (35.1-43.9); Red Blood Count 2.85 M/mm3 (4.6-6.2); White Blood Count 5.7 K/mm3 (4.4-11.0)
[2024-07-10 09:29] LABS: Albumin, Serum 2.5 g/dL (3.2-5.0); BUN 53 mg/dL (7-18); BUN/Creat Ratio 9.7 RATIO (10-20); Calcium,Total 7.9 mg/dL (8.5-10.1); Chloride 98 mmol/L (98-107); Creatinine, Serum 5.47 mg/dL (0.70-1.30); EST Glomerular Filtration Rate 12 mL/min (>60); Est Glom Filt Rate - Afr Amer 14 mL/min (>60); Estimated Creatinine Clearance 17.13 ml/min; Glucose 152 mg/dL (74-106); Phosphorus 4.8 mg/dL (2.5-4.9); Potassium 4.3 mmol/L (3.5-5.1); Sodium Level 128 mmol/L (136-145)
[2024-07-10] MEDS: 0.9% Normal Saline 1,000 ML IV.SOLN. 1000 ML OPERA.SITE (10:46)
[2024-07-10] MEDS: PureFlow B 2K Dialysis Soln 1 BAG 6 BAG PF (10:46)
[2024-07-10] MEDS: 0.9% Saline Lock 10 ML Syringe IV ×2 (10:47→15:48)
[2024-07-10] MEDS: Heparin 10,000 UNITS/10 ML Vial IV (10:47)
[2024-07-10] MEDS: carBAMazepine 200 MG Tablet 600 MG PO (12:26)
[2024-07-10] MEDS: Aspirin 81 MG TAB.CHEW PO (12:27)
[2024-07-10] MEDS: Nadolol 40 MG Tablet PO (12:28)
[2024-07-10] MEDS: SEVELAMER CARBONATE 800 MG TABLET 1600 MG PO (12:28)
[2024-07-10] MEDS: Nadolol 20 MG Tablet PO (12:28)
[2024-07-10] MEDS: Folic Acid/Vitamin B Comp W-C 1 Capsule 1 CAP PO (12:29)
[2024-07-10] MEDS: Losartan Potassium 50 MG Tablet PO (12:29)
[2024-07-10] MEDS: Calcitriol 0.25 MCG Capsule 0.5 MCG PO (12:29)
[2024-07-10] MEDS: Pantoprazole Sodium 40 MG Tablet PO (12:29)
[2024-07-10] MEDS: Spironolactone 50 MG Tablet 100 MG PO (12:30)
[2024-07-10] MEDS: Cholecalciferol (VIT D3) 25 MCG TABLET (1,000 UNITS) PO (12:30)
[2024-07-10] MEDS: Sertraline 100 MG Tablet PO (12:30)
[2024-07-10] MEDS: Insulin Glargine-YFGN 100 UNIT/ML Pen 12 UNIT SC (12:40)
[2024-07-10 13:02] LABS: Bedside Glucose 112 mg/dL (74-106)
== END 2024-07-10 16:33 | disposition home or self-care (01) | DRG 663 ==
LOC: ED 18:14 → PCU 22:00
PROVIDERS: Family Medicine; Hospitalist; Internal Medicine Gastroenterology; Internal Medicine Nephrology; Surgery; Admitting Provider Internal Medicine; Emergency Provider Emergency Medicine; PCP Family Medicine; Visit Provider Family Medicine
PROC: 0DJD8ZZ Inspection of Lower Intestinal Tract, Via Natural or Artificial Opening Endoscopic (ICD-10-PCS; CPT 45378; principal; 2024-07-03 12:25)
PROC: BW191ZZ Fluoroscopy of Head and Neck using Low Osmolar Contrast (ICD-10-PCS; principal; 2024-07-05 12:15)
DX: D62 Acute posthemorrhagic anemia (principal); I12.0 Hypertensive chronic kidney disease with stage 5 chronic kidney disease or end stage renal disease; K62.3 Rectal prolapse; N25.81 Secondary hyperparathyroidism of renal origin; N17.9 Acute kidney failure, unspecified; N18.5 Chronic kidney disease, stage 5; G40.909 Epilepsy, unspecified, not intractable, without status epilepticus; E10.40 Type 1 diabetes mellitus with diabetic neuropathy, unspecified; D63.1 Anemia in chronic kidney disease; F32.A Depression, unspecified; I86.4 Gastric varices; Z68.31 Body mass index [BMI] 31.0-31.9, adult; K25.9 Gastric ulcer, unspecified as acute or chronic, without hemorrhage or perforation; K76.0 Fatty (change of) liver, not elsewhere classified; E87.5 Hyperkalemia; B19.20 Unspecified viral hepatitis C without hepatic coma; E78.00 Pure hypercholesterolemia, unspecified; R19.5 Other fecal abnormalities; M19.90 Unspecified osteoarthritis, unspecified site; Z79.4 Long term (current) use of insulin; K57.30 Diverticulosis of large intestine without perforation or abscess without bleeding; F41.9 Anxiety disorder, unspecified; K30 Functional dyspepsia; G25.0 Essential tremor; E10.22 Type 1 diabetes mellitus with diabetic chronic kidney disease; K64.8 Other hemorrhoids; K63.5 Polyp of colon; G50.0 Trigeminal neuralgia; Z87.891 Personal history of nicotine dependence; Z82.3 Family history of stroke; Z90.49 Acquired absence of other specified parts of digestive tract; E66.9 Obesity, unspecified; Z79.2 Long term (current) use of antibiotics; K57.91 Diverticulosis of intestine, part unspecified, without perforation or abscess with bleeding
CPT/HCPCS: 36415; 36591; 70450; 70496; 70498; 70551; 71045; 80048; 80053; 80061; 80069; 80156; 82274; 82533; 82607; 82728; 82746; 82962; 83036; 83540; 83550; 83735; 84100; 84439; 84443; 85025; 85027; 85610; 85730; 86850; 86900; 86901; 86920; 86922; 87340; 88305; 88341; 88342; 90937; 93005; 93306; 94668; 94762; 97162; 97165; 97802; 99284; J7030; J7040; P9016; Q9957; Q9967; A4216; C1750; C8929; G0257; J0834; J1940; J2405; J3490

== ENCOUNTER 2024-07-23 05:40 | Day surgery (SDC) | payer MEDICAID, SELFPAY ==
[2024-07-23] VITALS (12 sets, daily range): BP systolic 130–199; BP diastolic 77–90; PULSE 52–59; RESP 12–18; TEMP 36.2–36.5; O2SAT 93–100; BMI 30.6
[2024-07-23 07:16] LABS: Hematocrit 22.6 % (40-54); Hemoglobin 7.2 g/dL (13.0-16.5); Mean Corp Hgb Conc 31.9 g/dL (32-36); Mean Corpuscular Hgb 29.6 pg (27.0-32.0); Mean Platelet Vol. 10.1 fl (6.2-12.0); Platelet Count 116 K/mm3 (150-450); RBC Distribution Width CV 14.4 % (11.6-14.6); RBC Distribution Width SD 48.3 fl (35.1-43.9); Red Blood Count 2.43 M/mm3 (4.6-6.2); White Blood Count 3.6 K/mm3 (4.4-11.0)
--- NOTE | 2024-07-23 07:24 | PRE.ANES_ITS ---
ASA Classification* ASA Classification ASA Classification: 3 Assessment & Plan Anesthesia* Anesthesia Assessment Anesthesia Assessment: Discussed sedation and/or anesthesia options, risks, benefits, and alternatives with patient/parents/legal guardian/POA. Questions invited. The patient/parents/legal guardian/POA seems to understand and agrees to proceed with anesthesia plan. Reviewed the physical assessment, medical history, allergy history and patient home medications list prior to surgery/procedure/anesthetic and documented any changes. Performed airway and anesthesia risk assessments. Anesthesia Type Anesthesia Type: MAC Anesthesia Focused Assessment* Temperature: 97.4 F Pulse Rate: 59 Blood Pressure: 157/89 Respiratory Rate: 16 Pulse Ox: 98 Airway Assessment Mouth opens: >3 cm Mallampati Score: II Focused Labs Anesthesia Preop lab: CBC WBC 5.7 K/mm3 (4.4-11.0) 07/10/24 08:54 RBC 2.85 M/mm3 (4.6-6.2) L 07/10/24 08:54 Hgb 8.6 g/dL (13.0-16.5) L 07/10/24 08:54 Hct 24.9 % (40-54) L 07/10/24 08:54 Plt Count 168 K/mm3 (150-450) 07/10/24 08:54 CHEMISTRY Potassium 4.3 mmol/L (3.5-5.1) 07/10/24 08:54 Sodium 128 mmol/L (136-145) L 07/10/24 08:54 Magnesium 2.1 mg/dL (1.6-2.6) 07/04/24 05:31 Phosphorus 4.8 mg/dL (2.5-4.9) 07/10/24 08:54 BUN 53 mg/dL (7-18) H 07/10/24 08:54 Creatinine 5.47 mg/dL (0.70-1.30) H 07/10/24 08:54 Glucose 152 mg/dL (74-106) H 07/10/24 08:54 POC Glucose 112 mg/dL (74-106) H 07/10/24 12:39 TSH 0.294 uIU/mL (0.358-3.740) L 07/06/24 06:31 COAG PT 15.4 SECONDS (11.7-14.9) H 07/04/24 05:31 Pre-Assessment Diagnosis/Proposed Procedure Planned Operative Procedure(s): AV FISTULA CREATION RIGHT UPPER ARM Anesthesia History 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 When Was Last Pacemaker Check QUESTION #4 FULL TEXT: You/Your Family Experience fever (hyperthermia) with Anesthesia Last Oral Intake Last Oral intake: Last Oral Intake NPO since 05:30 07/23/24 06:37 Meds taken in AM with sips of Yes 07/23/24 06:37 water? Meds patient instructed to take am of surgery PONV PONV - apparel manufacture instructor: PONV - apparel manufacture instructor Female No 07/19/24 14:23 HX of Motion Sickness Yes 07/19/24 14:23 HX of N/V After Surgery No 07/19/24 14:23 Non-Smoker Yes 07/19/24 14:23 Duration of Surgery greater Yes 07/19/24 14:23 than 60 minutes Number of Risk Factors 3 07/19/24 14:23 PONV Score Moderate Risk 07/19/24 14:23 Height & Weight Height & Weight: Anesthesia: Height & Weight Height 5 ft 8 in 07/23/24 06:37 Weight: 91.3 kg 07/23/24 06:37 Body Mass Index (BMI) 30.6 07/23/24 06:37 Respiratory Assessment Respiratory Assessment - apparel manufacture instructor: Respiratory Tract Infection Hx - apparel manufacture instructor Hx Respiratory Tract Infection No 07/19/24 14:23 STOP Sleep Apnea STOP Sleep Apnea - apparel manufacture instructor: STOP Sleep Apnea - apparel manufacture instructor Hx Hypertension Yes: CONTROLLED WITH MEDS 07/19/24 14:23 Hx Sleep Apnea No 07/19/24 14:23 CPAP No 07/05/24 14:01 BIPAP No 06/26/24 12:39 Do you snore loudly (louder Yes 07/19/24 14:23 than talking or can be heard Do you often feel tired/ Yes 07/19/24 14:23 fatigued/ sleepy during daytime? Has anyone observed you stop No 07/19/24 14:23 breathing during sleep? STOP Results Positive 07/19/24 14:23 QUESTION #5 FULL TEXT : Do you snore loudly (louder than talking or can be heard through closed doors)? Tobacco Use History Tobacco Use History - apparel manufacture instructor: Tobacco Use History - apparel manufacture instructor Tobacco Use Cigarettes 06/26/24 12:39 Smoking Status Former smoker 07/19/24 14:23 Hx Tobacco Use No 07/19/24 14:23 Years Smoking Packs Smoked per Day Smoking Cessation Date was No - quit smoking greater 07/19/24 14:23 within the last 15 years than 15 years ago Hx Smoking Cessation Date 10/27/03 07/19/24 14:23 Hx Smoking Cessation No 07/19/24 14:23 Counseling Hematologic Medial History Hematologic Hx - apparel manufacture instructor: Hematologic Medical Hx - lathe winder Hx of Blood Transfusion Yes 07/19/24 14:23 Hx of Transfusion in last 3 Yes 07/19/24 14:23 Months Date of Last Transfusion (if 07/02/24 07/19/24 14:23 within last 3 months) Ever experience any problems No 07/19/24 14:23 with transfusion(s)? Specify any problems Hx of Preganancy in last 3 N/A 07/19/24 14:23 Months Nurse Filling Out Transfusion DSCHRIBER 07/19/24 14:23 & Questions: Date: 07/19/24 07/19/24 14:23 Time: 14:27 07/19/24 14:23 Patient unable to answer at this time (ie. confused, unrespo /Reproduction History /Reproductive History - apparel manufacture instructor: /Reproductive Hx- apparel manufacture instructor Hx Now Gestational Age (in weeks): EDC: Hx Hx Para Hx Section SAB No 07/19/24 14:23 Active Medications Active Medications: Current Medications Generic Name Dose Route Start Last Admin Trade Name Freq PRN Reason Stop Dose Admin Cefazolin Sodium 2 gm/ N/A 20 mls @ 400 mls/hr 07/23/24 07:30 IV 07/23/24 07:32 PREOP ONE PFSH Medical History History of hemodialysis History of renal dialysis Hemodialysis patient Anemia due to chronic blood loss Positive fecal occult blood test Cancer Insulin dependent diabetes mellitus History of renal disease Low iron Easy bruising Wears glasses Arthritis Fatty liver Restless legs Former smoker Leg cramps History of edema History of stress test History of echocardiogram Syncope Hx of vertigo Therapeutic drug monitoring History of colon cancer Trigeminal nerve disorder portacath placement GERD (gastroesophageal reflux disease) High cholesterol Hepatitis C Depressive disorder Obesity Seizure disorder Asthma History of alcohol abuse Pancreatitis Sezary disease Home Medications ?Medication ?Instructions ?Recorded ?Last Taken ?Type cholecalciferol (vitamin D3) 25 1,000 unit PO TUTHSA supplement 10/10/13 11/13/15 History mcg (1,000 unit) capsule sertraline 100 mg tablet 100 mg PO QHS depression 07/18/14 11/13/15 History multivitamin with folic acid 400 1 tab PO DAILY supplement 10/21/14 11/13/15 History mcg tablet rosuvastatin 40 mg tablet 40 mg PO QHS cholesterol 11/24/16 07/23/24 01:00 Hi story fish oil-dha-epa 1,200 mg-144 1 each PO DAILY supplement 11/14/20 Unknown History mg-216 mg capsule albuterol sulfate 90 mcg/actuation 1 - 2 puff inhalation Q4H PRN PRN 10/16/23 Unknown Rx aerosol inhaler (Ventolin HFA) Wheezing #1 inh gemfibrozil 600 mg tablet 600 mg PO BID pancreatitis 12/08/23 12/07/23 10:00 History prevention nadolol 40 mg tablet 40 mg PO BID heart 12/18/23 07/23/24 05:30 History insulin lispro 100 unit/mL 18 unit (0.18 mL) subcut TID blood 03/12/24 Unknown Rx subcutaneous pen (Admelog SoloStar glucose #60 mL U-100 Insulin lispro) pantoprazole 20 mg tablet,delayed 40 mg (2 x 20 mg) PO DAILY reflux 04/30/24 Unknown Rx release #90 TABLETS carbamazepine 200 mg tablet 600 mg (3 x 200 mg) PO BID 09/10/24 11/08/24 Rx seizures #540 tabs calcitriol 0.5 mcg capsule 0.5 mcg PO DAILY bone health 05/30/24 Unknown History furosemide 40 mg tablet 40 mg PO DAILY diuretic 06/07/24 Unknown History clonidine HCl 0.1 mg tablet 0.1 mg PO TID hypertension 06/12/24 07/23/24 History ergocalciferol (vitamin D2) 1,250 1,250 mcg PO MOWEFR VITAMIN 07/03/24 Unknown History mcg (50,000 unit) capsule nadolol 20 mg tablet 20 mg PO BID heart 07/03/24 07/23/24 05:30 History sevelamer carbonate 800 mg tablet 800 mg PO TIDCM phosphate binder 07/03/24 Unknown History spironolactone 50 mg tablet 100 mg PO DAILY diuretic 07/03/24 Unknown History aripiprazole 2 mg tablet 2 mg PO QHS mental health 07/04/24 Unknown History hydralazine 25 mg tablet 25 mg PO BID 30 days #60 tabs 07/10/24 Unknown Rx losartan 50 mg tablet 50 mg PO DAILY 30 days #30 tabs 07/10/24 07/23/24 01:00 Rx insulin glargine 100 unit/mL (3 20 unit subcut BID diabetes 07/19/24 Unknown History mL) subcutaneous pen (Lantus Solostar U-100 Insulin) gabapentin 100 mg capsule 100 mg PO TID nerve pain #270 caps 07/22/24 Unknown Rx Allergy/AdvReac Type Severity Reaction Status Date / Time doxazosin (From Cardura) Allergy Severe Bleeding Verified 07/23/24 06:24 erythromycin base Allergy Severe Hives Verified 07/23/24 06:24 loratadine (From Claritin) Allergy Severe Rash Verified 07/23/24 06:24 amlodipine AdvReac nausea/diar Verified 07/23/24 06:24 darryl/dizzin ess Family History Grandmother Cervical cancer Diabetes Hypertension Trigeminal neuralgia Mother Uterine cancer Arthritis Diabetes Hypertension Grandfather Heart disease Arthritis Diabetes Hypertension Unknown Diabetes Arthritis Father Arthritis Diabetes Hypertension Sister Diabetes Hypertension Uncle CVA (cerebral vascular accident) Aunt Cerebral aneurysm Surgical History Hx of esophagogastroduodenoscopy Hx of appendectomy H/O left hemicolectomy Social History Smoking Status: Former smoker Tobacco: How many years used: 20 how long ago did patient quit smoking: quit 2003 second hand exposure: No alcohol intake: former details: quit 2003 substance use type: former substance user Date of last use: Used Marijuana since he was a teenager Review of Systems (Anesthesia) ROS Narrative System reviewed and no additional complaints, except as documented.
[2024-07-23 07:31] LABS: Anion Gap 4 (5-15); BUN 30 mg/dL (7-18); BUN/Creat Ratio 7.2 RATIO (10-20); Calcium,Total 7.9 mg/dL (8.5-10.1); Chloride 105 mmol/L (98-107); Creatinine, Serum 4.17 mg/dL (0.70-1.30); EST Glomerular Filtration Rate 16 mL/min (>60); Est Glom Filt Rate - Afr Amer 19 mL/min (>60); Estimated Creatinine Clearance 21.96 ml/min; Glucose 86 mg/dL (74-106); Potassium 4.4 mmol/L (3.5-5.1); Sodium Level 140 mmol/L (136-145)
--- NOTE | 2024-07-23 07:35 | PCM.HP.BLA ---
History and Physical Allergies doxazosin (From Cardura) Allergy (Severe, Verified 07/19/24 10:54) Bleedingerythromycin base Allergy (Severe, Verified 07/19/24 10:54) Hivesloratadine (From Claritin) Allergy (Severe, Verified 07/19/24 10:54) Rashamlodipine Adverse Reaction (Verified 07/19/24 10:54) nausea/diarrhea/dizziness Medications ?Medication ?Instructions ?Recorded ?Confirmed ?Type cholecalciferol (vitamin D3) 25 1,000 unit PO DAILY supplement 10/10/13 07/19/24 History mcg (1,000 unit) capsule sertraline 100 mg tablet 100 mg PO DAILY depression 07/18/14 07/19/24 History multivitamin with folic acid 400 1 tab PO DAILY supplement 10/21/14 07/19/24 History mcg tablet rosuvastatin 40 mg tablet 40 mg PO QHS cholesterol 11/24/16 07/19/24 History fish oil-dha-epa 1,200 mg-144 1 each PO DAILY supplement 11/14/20 07/19/24 History mg-216 mg capsule albuterol sulfate 90 mcg/actuation 1 - 2 puff inhalation Q4H PRN PRN 10/16/23 07/19/24 Rx aerosol inhaler (Ventolin HFA) Wheezing #1 inh gemfibrozil 600 mg tablet 600 mg PO BID pancreatitis 12/08/23 07/19/24 History prevention nadolol 40 mg tablet 40 mg PO BID heart 12/18/23 07/19/24 History insulin lispro 100 unit/mL 18 unit (0.18 mL) subcut TID blood 03/12/24 07/19/24 Rx subcutaneous pen (Admelog SoloStar glucose #60 mL U-100 Insulin lispro) insulin glargine 100 unit/mL (3 20 unit (0.2 mL) subcut DAILY 03/13/24 07/19/24 Rx mL) subcutaneous pen (Lantus diabetes #18 mL Solostar U-100 Insulin) pantoprazole 20 mg tablet,delayed 40 mg (2 x 20 mg) PO DAILY reflux 04/30/24 07/19/24 Rx release #90 TABLETS carbamazepine 200 mg tablet 600 mg (3 x 200 mg) PO BID 05/07/24 07/19/24 Rx seizures #540 tabs gabapentin 100 mg capsule 100 mg PO QHS nerve pain #90 caps 05/07/24 07/19/24 Rx calcitriol 0.5 mcg capsule 0.5 mcg PO DAILY bone health 05/30/24 07/19/24 History furosemide 40 mg tablet 40 mg PO DAILY diuretic 06/07/24 07/19/24 History clonidine HCl 0.1 mg tablet 0.1 mg PO TID hypertension 06/12/24 07/19/24 History ergocalciferol (vitamin D2) 1,250 1,250 mcg PO QWEEK VITAMIN 07/03/24 07/19/24 History mcg (50,000 unit) capsule nadolol 20 mg tablet 20 mg PO BID heart 07/03/24 07/19/24 History sevelamer carbonate 800 mg tablet 800 mg PO TIDCM phosphate binder 07/03/24 07/19/24 History spironolactone 50 mg tablet 100 mg PO DAILY diuretic 07/03/24 07/19/24 History aripiprazole 2 mg tablet 2 mg PO QHS mental health 07/04/24 07/19/24 History hydralazine 25 mg tablet 25 mg PO BID 30 days #60 tabs 07/10/24 07/19/24 Rx losartan 50 mg tablet 50 mg PO DAILY 30 days #30 tabs 07/10/24 07/19/24 Rx PFSH Medical History (Updated 07/19/24 @ 10:51 by Cindy Hope) Hemodialysis patient Anemia due to chronic blood loss Positive fecal occult blood test Cancer Insulin dependent diabetes mellitus History of renal disease Low iron Easy bruising Wears glasses Arthritis Fatty liver Restless legs Former smoker Leg cramps History of edema History of stress test History of echocardiogram Syncope Hx of vertigo Therapeutic drug monitoring History of colon cancer Trigeminal nerve disorder portacath placement GERD (gastroesophageal reflux disease) High cholesterol Hepatitis C Depressive disorder Obesity Seizure disorder Asthma History of alcohol abuse Pancreatitis Sezary disease Surgical History Hx of esophagogastroduodenoscopy Hx of appendectomy H/O left hemicolectomy Family History Grandmother Cervical cancer Diabetes Hypertension Trigeminal neuralgiaMother Uterine cancer Arthritis Diabetes HypertensionGrandfather Heart disease Arthritis Diabetes HypertensionUnknown Diabetes ArthritisFather Arthritis Diabetes HypertensionSister Diabetes HypertensionUncle CVA (cerebral vascular accident)Aunt Cerebral aneurysm Social History Smoking Status: Former smoker Tobacco: How many years used: 20 how long ago did patient quit smoking: quit 2003 second hand exposure: No alcohol intake: former details: quit 2003 substance use type: former substance user Date of last use: Used Marijuana since he was a teenager HPI HPI HPI: REGINALDO HUFFMAN, is a 53 M who presents to the office today for preoperative follow-up prior to planned fistula creation on 07/23/2024. I last saw the patient on 06/26/2024 at which time he was not yet on dialysis and based on his venous mapping we had planned for most likely right cephalic fistula. Since this office visit he was admitted to the hospital from 07/02/2024 to 07/10/2024. He was admitted for severe anemia with hemoglobin 6.9 (his usual baseline is around 8-9) as well as generalized weakness. He was found to have Hemoccult positive stools. He underwent upper endoscopy 07/03/2024 which showed gastric varices without bleeding, nonbleeding gastric ulcers and colonoscopy which showed nonbleeding external and internal hemorrhoids, rectal prolapse, diverticulosis, patent ileocolonic anastomosis. His hemoglobin improved with 1 unit packed red blood cells and is stabilized back at his baseline. He continues to receive outpatient iron infusions. Unfortunately, he also developed PEDRO LUIS on CKD and ultimately had R IJ tunneled dialysis catheter placement on 07/05/2024. As an outpatient, he is now receiving dialysis Monday, , and Monday. He does have a history of chronic anemia for which she receives regular infusions/transfusions via left chest port, history of colon cancer status post colectomy and chemo in 2013, peripheral neuropathy involving both upper and lower extremities, seizure disorder on carbamazepine, Sezary disease (cutaneous T-cell lymphoma), asthma. He reports dialysis has been going well through the right IJ tunneled catheter. He states once dialysis catheter was placed, no IVs or blood draws were done on the RUE. He has not had any signs/symptoms of SVT. He reports they are still working on getting better control of his blood pressures, he has been following closely with his PCP for this. He denies any chest pain, headache, vision changes, abdominal pain, or other concerns today. He reports that his blood pressure at home prior to coming into the office was systolic 170. He took his morning BP medications. He says he has been taking the clonidine twice daily instead of three times daily. ROS General General: Yes weight change, fatigue, colon cancer and weakness; No appetite or breast cancer HEENT HEENT: No difficulty swallowing, eye injury, eye surgery, swollen glands or hoarseness Endo Endocrine: Yes diabetes mellitus; No thyroid disease, thyroid cancer, Hair loss, heat intolerance or cold intolerance Musc Musculoskeletal: Yes back problems and arthritis; No rheumatoid arthritis, gout or joint pain Cardio Cardiovascular: Yes high blood pressure; No murmur, pacemaker, heart disease, atrial fibrillation, heart attack, heart stent, palpitations, shortness of breat with exertion or chest pain Psych Psychiatric: Yes depression and anxiety; No hearing voices Resp Respiratory: Yes shortness of breath, No sleep apnea, No cough, No COPD, Yes asthma, No emphysema and No wheezing Gastro Gastrointestinal: No abdominal pain, No nausea or vomiting, Yes diarrhea, No constipation, Yes blood in stool, Yes acid reflux, No hemorrhoids, No ulcers, No gallbladder problem and No black,tarry stools Francesco Hematologic: No blood thinners, No blood disorders, No bleeding, Yes anemia and No blood clots Neuro Neurologic: No system reviewed and no additional complaints, except as documented, No as per HPI, No abnormal gait, No abnormal hearing, No abnormal movements, No abnormal speech, No behavioral changes, Yes burning sensations, Yes confusion, No convulsions, Yes disequilibrium, Yes dizziness, No localized weakness, No frequent falls, Yes headache(s), Yes lack of coordination, No loss of vision, No memory loss, Yes numbness, No other visual disturbances, No radicular pain, Yes restless legs, No sensory deficit, Yes syncope, Yes tingling, Yes tremor(s), Yes weakness and No other Exam Const General: cooperative, healthy appearing, comfortable and no acute distress Orientation: alert, awake and oriented x3 HENMT Head: normocephalic and atraumatic Ears: hearing grossly normal bilaterally and external ears normal Nose: external nose normal Eyes General: appearance normal, both eyes and all related structures EOM: EOM intact bilaterally Neck Neck: normal visual inspection and trachea midline Resp Effort & Inspection: normal respiratory effort, able to speak in complete sentences, no grunting, not labored, no respiratory distress and no retractions Auscultation: clear to auscultation bilaterally Cardio Rate: regular rate Rhythm: regular rhythm Pulses: brachial pulses present, radial pulses present, ulnar radial pulses present, posterior tibial pulses present and dorsalis pedis present Other: R IJ tunneled catheter Skin General: no rashes or lesions noted Trauma: no lacerations or abrasions Wounds: no wounds Neuro General: moves all extremities and no focal motor deficits Cranial Nerves: CN's II-XI intact bilaterally Speech: speech normal Extremities Lower Extremity Edema: Trace: Bilateral Additional Details: RUE without edema, no evidence of SVT Psych Appearance: grossly normal Mental Status: mental status grossly normal Mood: congruent mood Affect: normal affect Speech and Movement: speech and movement normal Attitude: cooperative Judgment: judgment good Coding Level of Care Code Off vis,est,level 2 Diagnoses Chronic kidney disease, stage IV (severe) N18.4 Assessment and Plan Assessment and Plan (1) Chronic kidney disease, stage IV (severe): Status: Chronic Plan: -right arm fistula
[2024-07-23] MEDS: Cefazolin 2 GM in Syringe IV (07:37)
[2024-07-23] MEDS: Lidocaine 1% (20 ml mdv) 20 ML Vial (08:00)
[2024-07-23] MEDS: Bupivacaine 0.25% 30 ML Vial (08:00)
[2024-07-23 08:42] LABS: Bedside Glucose 81 mg/dL (74-106)
--- NOTE | 2024-07-23 09:10 | OP.PCM_ITS ---
Problems Associated Problem List Diagnoses (1) ESRD (end stage renal disease) on dialysis: Operative Report (Standard) Operative Information Surgery/Procedure Performed: right brach-ceph fistula creation Surgeon: Kirk Fernandez Date of Procedure: 07/23/24 Procedure Start Time: 08:00 Procedure Stop Time: 09:30 Pre-Operative Diagnosis: ESRD Post-Operative Diagnosis: same Select all DRAINS/GRAFTS/IMPLANTS that apply: None Type of Anesthesia: Local and MAC Estimated Blood Loss: 9 Specimen collected: No Description of surgery: HPI: Patient is a 53-year-old male who is followed for chronic renal decline who suffered recent acute blood loss anemia which pushed him to require dialysis. He has had vein mapping which revealed satisfactory right upper extremity cephalic and basilic veins. He presents now for fistula creation. Description of procedure: Upon obtaining form consent and verification correct patient procedure site patient was taken to the operating room where he was positioned prepped and draped in usual sterile fashion. Timeout was performed and sedation administered by anesthesia. Ultrasound was used to evaluate the cephalic and basilic veins and both were found to be adequate in diameter and continuous throughout the upper arm. There confluence and deep cloth sander vein were close proximity to the brachial artery just inferior to the antecubital crease so the skin overlying this position was anesthetized 1% lidocaine. Transverse incision was then made and Bovie electrocautery was dissect down through the subcutaneous tissue and self-retaining retractors put in position. Once the vein was visualized sharp dissection used dissect free proximal and distal and side branches were ligated with silk ties and divided. We then turned our attention to the arterial exposure dissecting down to the fascia which was incised in cruciate configuration and self-retaining retractors moved deeper into the wound. Sharp dissection used dissect free the brachial artery proximal and distal with care taken to identify and protect adjacent nerve and vein structures. A right angle was used to place a vessel loop proximal and distal and the patient was heparinized and allowed to circulate for 3 minutes. The vein was then ligated distally in the field and divided and then dilated with coronary dilators up to 3 mm. The vein was then marked to maintain orientation and the artery occluded with Vesseloops. A longitudinal arteriotomy was created with 11 blade extended with Og scissors and anastomosis performed using a 6-0 Prolene in a running fashion. Prior to completing suture line vessels were back flushed and after completing the suture line clamps removed and satisfactory stasis was noted. There is a palpable pulse in the wrist and the radial artery and a palpable thrill in the cephalic vein to the mid upper arm. The incision was then inspected for hemostasis and closed with 3-0 Vicryl followed by 4 Monocryl and Dermabond for the skin. At the conclusion of the case the patient was awakened from sedation taken to recovery with anticipated discharge to home. Surgical Findings: Palpable radial pulse, palpable thrill in the cephalic vein fistula [employer] Intelligence Technician assembler type bar and segment: Yes Consumer Education Specialist: Fabiola Vides Tasks completed by retail store assistant: Opening, Closing, Hemostasis: Tie and Retracting Complications Complications: No
--- NOTE | 2024-07-23 09:11 | DCINST_ITS ---
Discharge Instructions Diet Discharge Diet: No restrictions Activity Lifting Restrictions: do not lift > 20 lbs with right arm for 14 days Additional Activity Instructions:: do not submerge incision for 14 days Dressing / Incision Call your doctor if your incision/area has: Sudden Increased Bleeding, Increased Pain/ Swelling, Increased Redness and Foul Smelling Discharge Call your doctor if you observe: Fever of 101 or Higher, Coldness, Increased Pain and Numbness or Tingling Remove Dressing in: 2 days Cleanse incision/area with: Soap & Water Follow Up Care Test Results: Test results from this visit will be discussed in further detail at your follow- up appointment, if applicable. Discharge Plan Admission Attending Provider: Kirk Fernandez Primary Care Provider: Kimberlyn Garcia Instructions Print Language: Belarusian Discharge Orders/Prescriptions Prescriptions: New oxycodone 5 mg tablet 5 mg PO Q8H PRN (Reason: pain) 3 Days Qty: 9 0RF Continued carbamazepine 200 mg tablet 600 mg PO BID Qty: 540 3RF clonidine HCl 0.1 mg tablet 0.1 mg PO TID cholecalciferol (vitamin D3) 1,000 UNIT capsule 1,000 unit PO TUTHSA Patient Comments: VITAMIN sertraline 100 MG tablet 100 mg PO QHS multivitamin with folic acid 1 TABLET tablet 1 tab PO DAILY calcitriol 0.5 mcg capsule 0.5 mcg PO DAILY furosemide 40 mg tablet 40 mg PO DAILY fish oil-dha-epa 1 EACH capsule 1 each PO DAILY gemfibrozil 600 mg tablet 600 mg PO BID insulin glargine [Lantus Solostar U-100 Insulin] 100 unit/mL (3 mL) insulin pen 20 unit subcut BID ergocalciferol (vitamin D2) 1,250 mcg (50,000 unit) capsule 1,250 mcg PO MOWE Patient Comments: takes on wednesdays nadolol 20 mg tablet 20 mg PO BID Patient Comments: take with 40mg tablet. total dose = 60mg sevelamer carbonate 800 mg tablet 800 mg PO TIDCM spironolactone 50 mg tablet 100 mg PO DAILY aripiprazole 2 mg Tablet 2 mg PO QHS losartan 50 mg Tablet 50 mg PO DAILY 30 Days Qty: 30 0RF hydralazine 25 mg Tablet 25 mg PO BID 30 Days Qty: 60 0RF albuterol sulfate [Ventolin HFA] 90 mcg/actuation HFA aerosol inhaler 1 - 2 puff inhalation Q4H PRN PRN (Reason: Wheezing) Qty: 1 0RF nadolol 40 mg tablet 40 mg PO BID Patient Comments: take with 20mg tablet. total dose = 60mg rosuvastatin 40 MG tablet 40 mg PO QHS insulin lispro [Admelog SoloStar U-100 Insulin] 100 unit/mL insulin pen 18 unit subcut TID Qty: 60 1RF pantoprazole 20 mg tablet,delayed release (DR/EC) 40 mg PO DAILY Qty: 90 3RF gabapentin 100 mg capsule 100 mg PO TID Qty: 270 2RF Referrals / Follow Up: Kimberlyn Garcia MD [Primary Care Provider] - Disposition Disposition (needs filled in before D/C Order can be placed): Home, Self Care
--- NOTE | 2024-07-23 09:26 | PCM.POST.ANE ---
Anesthesia: Postop Eval I Current Vital Signs Temperature: 97.7 F Pulse Rate: 58 Blood Pressure: 130/77 Respiratory Rate: 16 Pulse Ox: 98 Oxygen Delivery Method: Room Air Assessment Airway patent: Yes Spontaneous unlabored respirations: Yes Mental status: Awake and Calm nausea: No Vomiting: No Anesthesia Complication: No Fluid Hydration Crystalloid volume administer (ml): 10 Total IV fluid infused: 10 Progress Note Anesthesia document: Postop Eval 1 completed: No
--- NOTE | 2024-07-23 09:56 | POSTOPAN2_ITS ---
Anesthesia Postop Eval I Sum Postop Eval Completion status Anesthesia document: Postop Eval 1 completed: No Anesthesia Postop Eval I Summary Anesthesia Postop Eval I Summary: Anesthesia Postop Eval I: Assessment Summary Airway patent Yes 07/23/24 09:29 POST ACUTE CARE NURSE.GDOTT Spontaneous unlabored Yes 07/23/24 09:29 POST ACUTE CARE NURSE.GDOTT respirations Mental status Awake,Calm 07/23/24 09:29 POST ACUTE CARE NURSE.GDOTT nausea No 07/23/24 09:29 POST ACUTE CARE NURSE.GDOTT Vomiting No 07/23/24 09:29 POST ACUTE CARE NURSE.GDOTT Anesthesia Postop Eval I: Fluid Summary Crystalloid volume administer 10 07/23/24 09:29 POST ACUTE CARE NURSE.GDOTT (ml) Colloids volume administered ( ml) Blood Product volume administered (ml) Total IV fluid infused 10 07/23/24 09:29 POST ACUTE CARE NURSE.GDOTT Anesthesia Postop Eval I: Summary Notes Anesthesia Complication No 07/23/24 09:29 POST ACUTE CARE NURSE.GDOTT Anesthesia Complication Comment: Post-operative progress note Anesthesia: Postop Eval II Evaluation Mental status: Awake Pain Level: 0 nausea: No Vomiting: No
--- NOTE | 2024-07-23 09:56 | PCM.POSTANE2 ---
Anesthesia Postop Eval I Sum Postop Eval Completion status Anesthesia document: Postop Eval 1 completed: No Anesthesia Postop Eval I Summary Anesthesia Postop Eval I Summary: Anesthesia Postop Eval I: Assessment Summary Airway patent Yes 07/23/24 09:29 ACTING SECTION CHIEF.GDOTT Spontaneous unlabored Yes 07/23/24 09:29 ACTING SECTION CHIEF.GDOTT respirations Mental status Awake,Calm 07/23/24 09:29 ACTING SECTION CHIEF.GDOTT nausea No 07/23/24 09:29 ACTING SECTION CHIEF.GDOTT Vomiting No 07/23/24 09:29 ACTING SECTION CHIEF.GDOTT Anesthesia Postop Eval I: Fluid Summary Crystalloid volume administer 10 07/23/24 09:29 ACTING SECTION CHIEF.GDOTT (ml) Colloids volume administered ( ml) Blood Product volume administered (ml) Total IV fluid infused 10 07/23/24 09:29 ACTING SECTION CHIEF.GDOTT Anesthesia Postop Eval I: Summary Notes Anesthesia Complication No 07/23/24 09:29 ACTING SECTION CHIEF.GDOTT Anesthesia Complication Comment: Post-operative progress note Anesthesia: Postop Eval II Evaluation Mental status: Awake Pain Level: 0 nausea: No Vomiting: No
[2024-07-23 09:57] LABS: Bedside Glucose 56 mg/dL (74-106)
[2024-07-23 10:29] LABS: Bedside Glucose 89 mg/dL (74-106)
== END 2024-07-23 11:49 | disposition home or self-care (01) ==
LOC: SDC 05:41 → AC 05:42
PROVIDERS: PCP Family Medicine; Referring Provider Surgery Trauma Surgery; Visit Provider Surgery Trauma Surgery
PROC: (CPT 36821; principal; 2024-07-23 07:15)
DX: E11.22 Type 2 diabetes mellitus with diabetic chronic kidney disease (principal); N18.6 End stage renal disease; I12.0 Hypertensive chronic kidney disease with stage 5 chronic kidney disease or end stage renal disease; G40.909 Epilepsy, unspecified, not intractable, without status epilepticus; Z79.4 Long term (current) use of insulin; E11.42 Type 2 diabetes mellitus with diabetic polyneuropathy; Z99.2 Dependence on renal dialysis; E78.00 Pure hypercholesterolemia, unspecified; K21.9 Gastro-esophageal reflux disease without esophagitis; J45.909 Unspecified asthma, uncomplicated; Z79.51 Long term (current) use of inhaled steroids; Z79.899 Other long term (current) drug therapy; Z87.891 Personal history of nicotine dependence
CPT/HCPCS: 36821; 01844; 80048; 82962; 85027; 86850; 86900; 86901; A4648; A4216; J2405

== ENCOUNTER → 2024-07-26 | Outpatient (CLI) | payer MEDICAID, SELFPAY ==
[2024-07-26 12:16] LABS: Carbamazepine (Tegretol) 11.4 ug/mL (4.0-12.0)
[2024-07-29 14:08] LABS: Erythropoietin 8.1 mIU/mL (2.6-18.5)
== END | disposition home or self-care (01) ==
PROVIDERS: PCP Family Medicine; Referring Provider Family Medicine; Visit Provider Family Medicine
DX: G50.0 Trigeminal neuralgia (principal); D64.9 Anemia, unspecified
CPT/HCPCS: A4216; 36591; 80156; 82668

== ENCOUNTER 2024-09-12 12:55 | Emergency (ER) | payer MEDICAID, SELFPAY ==
[2024-09-12 12:56] VITALS: BP 186/82; PULSE 66; RESP 16; TEMP 36.1; O2SAT 100; BMI 31.0
--- NOTE | 2024-09-12 14:09 | EX.ED.DYSGE1 ---
HPI <BLANCA Acosta - Last Filed: 09/12/24 20:02> History of Present Illness Chief Complaint: Other, Pain/Inj Narrative Narrative: 53 year old male presents with an issue with his right chest tunneled dialysis catheter. He went to dialysis this morning and the nurse put heparin in but it would not flush and could not be used. He gets dialysis Tue/Th/Sat. He denies pain or swelling over the catheter site. PFSH <BLANCA Acosta - Last Filed: 09/12/24 20:02> [facility] Medical History History of hemodialysis History of renal dialysis Hemodialysis patient Anemia due to chronic blood loss Positive fecal occult blood test Cancer Insulin dependent diabetes mellitus History of renal disease Low iron Easy bruising Wears glasses Arthritis Fatty liver Restless legs Former smoker Leg cramps History of edema History of stress test History of echocardiogram Syncope Hx of vertigo Therapeutic drug monitoring History of colon cancer Trigeminal nerve disorder portacath placement GERD (gastroesophageal reflux disease) High cholesterol Hepatitis C Depressive disorder Obesity Seizure disorder Asthma History of alcohol abuse Pancreatitis Sezary disease Home Medications ?Medication ?Instructions ?Recorded ?Last Taken ?Type cholecalciferol (vitamin D3) 25 1,000 unit PO TUTHSA supplement 10/10/13 11/13/15 History mcg (1,000 unit) capsule sertraline 100 mg tablet 100 mg PO QHS depression 07/18/14 11/13/15 History multivitamin with folic acid 400 1 tab PO DAILY supplement 10/21/14 11/13/15 History mcg tablet rosuvastatin 40 mg tablet 40 mg PO QHS cholesterol 11/24/16 07/23/24 01:00 History fish oil-dha-epa 1,200 mg-144 1 each PO DAILY supplement 11/14/20 Unknown History mg-216 mg capsule albuterol sulfate 90 mcg/actuation 1 - 2 puff inhalation Q4H PRN PRN 10/16/23 Unknown Rx aerosol inhaler (Ventolin HFA) Wheezing #1 inh gemfibrozil 600 mg tablet 600 mg PO BID pancreatitis 12/08/23 12/07/23 10:00 History prevention nadolol 40 mg tablet 40 mg PO BID heart 12/18/23 07/23/24 05:30 History insulin lispro 100 unit/mL 18 unit (0.18 mL) subcut TID blood 03/12/24 Unknown Rx subcutaneous pen (Admelog SoloStar glucose #60 mL U-100 Insulin lispro) pantoprazole 20 mg tablet,delayed 40 mg (2 x 20 mg) PO DAILY reflux 04/30/24 Unknown Rx release #90 TABLETS carbamazepine 200 mg tablet 600 mg (3 x 200 mg) PO BID 05/07/24 07/05/24 Rx seizures #540 tabs calcitriol 0.5 mcg capsule 0.5 mcg PO DAILY bone health 05/30/24 Unknown History furosemide 40 mg tablet 40 mg PO DAILY diuretic 06/07/24 Unknown History clonidine HCl 0.1 mg tablet 0.1 mg PO TID hypertension 06/12/24 07/23/24 History ergocalciferol (vitamin D2) 1,250 1,250 mcg PO MOWEFR VITAMIN 07/03/24 Unknown History mcg (50,000 unit) capsule nadolol 20 mg tablet 20 mg PO BID heart 07/03/24 07/23/24 05:30 History sevelamer carbonate 800 mg tablet 800 mg PO TIDCM phosphate binder 07/03/24 Unknown History spironolactone 50 mg tablet 100 mg PO DAILY diuretic 07/03/24 Unknown History aripiprazole 2 mg tablet 2 mg PO QHS mental health 07/04/24 Unknown History hydralazine 25 mg tablet 25 mg PO BID 30 days #60 tabs 07/10/24 Unknown Rx losartan 50 mg tablet 50 mg PO DAILY 30 days #30 tabs 07/10/24 07/23/24 01:00 Rx insulin glargine 100 unit/mL (3 20 unit subcut BID diabetes 07/19/24 Unknown History mL) subcutaneous pen (Lantus Solostar U-100 Insulin) gabapentin 100 mg capsule 100 mg PO TID nerve pain #270 caps 07/22/24 Unknown Rx oxycodone 5 mg tablet 5 mg PO Q8H PRN pain 3 days #9 tabs 07/23/24 Unknown Rx Allergy/AdvReac Type Severity Reaction Status Date / Time doxazosin (From Cardura) Allergy Severe Bleeding Verified 09/12/24 13:00 erythromycin base Allergy Severe Hives Verified 09/12/24 13:00 loratadine (From Claritin) Allergy Severe Rash Verified 09/12/24 13:00 amlodipine AdvReac nausea/diar Verified 09/12/24 13:00 darryl/dizzin ess Family History Grandmother Cervical cancer Diabetes Hypertension Trigeminal neuralgia Mother Uterine cancer Arthritis Diabetes Hypertension Grandfather Heart disease Arthritis Diabetes Hypertension Unknown Diabetes Arthritis Father Arthritis Diabetes Hypertension Sister Diabetes Hypertension Uncle CVA (cerebral vascular accident) Aunt Cerebral aneurysm Surgical History Hx of esophagogastroduodenoscopy Hx of appendectomy H/O left hemicolectomy Social History Smoking Status: Former smoker Tobacco: How many years used: 20 how long ago did patient quit smoking: quit 2003 second hand exposure: No alcohol intake: former details: quit 2003 substance use type: former substance user Date of last use: Used Marijuana since he was a teenager ROS <BLANCA Acosta - Last Filed: 09/12/24 20:02> ROS ED ROS Narrative Constitutional: Negative for fever, chills, malaise. CVS: Negative for chest pain. Respiratory: Negative for shortness of breath. GI: Negative for abdominal pain, nausea, vomiting. EXAM <BLANCA Acosta - Last Filed: 09/12/24 20:02> Physical Exam Narrative Exam Narrative: CONST: Patient sitting in no acute distress. EYES: Normal inspection. NECK: Normal inspection. RESP: No respiratory distress, CTAB. Right chest tunneled vas catheter intact without surrounding erythema or swelling or drainage. CVS: Regular rate and rhythm, no murmur, no gallop. SKIN: Color normal, no rash, warm, dry, intact. EXTREMITIES: Normal appearance, no pedal edema. NEURO: Alert and answering questions appropriately. PSYCH: Normal affect. Const Vital Signs: 09/12/24 12:56 09/12/24 15:30 09/12/24 16:15 Temperature 97 F L 98 F Temperature Source Temporal Pulse Rate 66 86 86 Respiratory Rate 16 16 16 Blood Pressure 186/82 H 142/80 H 142/80 H Blood Pressure Mean 116 100 100 Pulse Ox 100 100 100 Oxygen Delivery Method Room Air <Dr. Galdino Hogan MD - Last Filed: 09/12/24 16:04> Physical Exam Const Vital Signs: 09/12/24 12:56 09/12/24 15:30 09/12/24 16:15 Temperature 97 F L 98 F Temperature Source Temporal Pulse Rate 66 86 86 Respiratory Rate 16 16 16 Blood Pressure 186/82 H 142/80 H 142/80 H Blood Pressure Mean 116 100 100 Pulse Ox 100 100 100 Oxygen Delivery Method Room Air [facility] <BLANCA Acosta - Last Filed: 09/12/24 20:02> [facility] Narrative Medical decision making narrative: 53-year-old male could not start his dialysis session because his right chest vascular catheter is clogged. Reportedly the dialysis nurse tried a heparin flush. He has no other acute complaints. The catheter appears normal without signs of displacement or infection. Alteplase was injected into both ports and it was checked after 30 minutes and is flushing easily. <Dr. Galdino Hogan MD - Last Filed: 09/12/24 16:04> [facility] Narrative Medical decision making narrative: 53-year-old male could not start his dialysis session because his right chest vascular catheter is clogged. Reportedly the dialysis nurse tried a heparin flush. He has no other acute complaints. The catheter appears normal without signs of displacement or infection. Alteplase was injected into both ports and it was checked after 30 minutes and is flushing easily. I have personally performed a face to face assessment of the patient and have reviewed the MIN Note. I performed a substantive portion of the visit including all aspects of the following. My ryan findings include: History is 53-year-old male history of end-stage renal disease dialysis due to diabetes and hypertension. Has a tunneled right-sided Vas-Cath placed around May. That has been working well. Today at dialysis they were unable to flush it or get it to run. Patient denies other complaints. Exam is [well-appearing middle-age male. Vital signs are stable afebrile. No distress. Pulse ox 100% on room air no hypoxia. H EENT exam pupils round react light. Extra motions are intact. Lungs clear to auscultation. Heart regular rhythm rate about 65 no murmur. Chest wall and ribs nontender. He has a tunneled Vas-Cath right chest wall. Area is clean and dry. No cellulitis no discharge. Abdomen soft nontender. Moving all 4 extremities. Nontender. Neurologically he is awake and alert. Answer questions following commands.] Medical Decision Making [patient with an obstructed right-sided Vas-Cath. I placed alteplase about 2 mL in each port. We let it sit about 20 to 25 minutes. Then I was able to easily flush each port with 5 cc of sterile saline. Patient is comfortable being discharged home. His dialysis center closed due to the weather today. He will follow-up and get his dialysis on Monday. He is unable to go tomorrow due to a doctor's appointment he has.] Other additions or changes: [None] Discharge Plan Triage Chief Complaint: Other, Pain/Inj ED Midlevel Provider: Linda Barros ED Provider: Galdino Hogan Dx/Rx/DC Orders Clinical Impression: Complication of vascular dialysis catheter Instructions: Caring for Your Central Vein Access Prescriptions: No Action carbamazepine 200 mg tablet 600 mg PO BID Qty: 540 3RF clonidine HCl 0.1 mg tablet 0.1 mg PO TID cholecalciferol (vitamin D3) 1,000 UNIT capsule 1,000 unit PO TUTHSA Patient Comments: VITAMIN sertraline 100 MG tablet 100 mg PO QHS multivitamin with folic acid 1 TABLET tablet 1 tab PO DAILY calcitriol 0.5 mcg capsule 0.5 mcg PO DAILY furosemide 40 mg tablet 40 mg PO DAILY fish oil-dha-epa 1 EACH capsule 1 each PO DAILY gemfibrozil 600 mg tablet 600 mg PO BID insulin glargine [Lantus Solostar U-100 Insulin] 100 unit/mL (3 mL) insulin pen 20 unit subcut BID oxycodone 5 mg tablet 5 mg PO Q8H PRN (Reason: pain) 3 Days Qty: 9 0RF ergocalciferol (vitamin D2) 1,250 mcg (50,000 unit) capsule 1,250 mcg PO MOWEFR Patient Comments: takes on wednesdays nadolol 20 mg tablet 20 mg PO BID Patient Comments: take with 40mg tablet. total dose = 60mg sevelamer carbonate 800 mg tablet 800 mg PO TIDCM spironolactone 50 mg tablet 100 mg PO DAILY aripiprazole 2 mg Tablet 2 mg PO QHS losartan 50 mg Tablet 50 mg PO DAILY 30 Days Qty: 30 0RF hydralazine 25 mg Tablet 25 mg PO BID 30 Days Qty: 60 0RF albuterol sulfate [Ventolin HFA] 90 mcg/actuation HFA aerosol inhaler 1 - 2 puff inhalation Q4H PRN PRN (Reason: Wheezing) Qty: 1 0RF nadolol 40 mg tablet 40 mg PO BID Patient Comments: take with 20mg tablet. total dose = 60mg rosuvastatin 40 MG tablet 40 mg PO QHS insulin lispro [Admelog SoloStar U-100 Insulin] 100 unit/mL insulin pen 18 unit subcut TID Qty: 60 1RF pantoprazole 20 mg tablet,delayed release (DR/EC) 40 mg PO DAILY Qty: 90 3RF gabapentin 100 mg capsule 100 mg PO TID Qty: 270 2RF Primary Care Provider: Kimberlyn Garcia Referrals: Kimberlyn Garcia MD [Primary Care Provider] - Activity Restrictions/Additional Instructions: Please go to dialysis on Monday. Print Language: Azeri Disposition Disposition: Home, Self Care Discharge Date/Time: 09/12/24 16:25
--- NOTE | 2024-09-12 15:11 | ED.RN ---
DIALYSIS NURSE NOT AVAILABLE. DR CLARK TO PUSH MED IN DIALYSIS CATHETER.
[2024-09-12 15:30] VITALS: BP 142/80; PULSE 86; RESP 16; O2SAT 100
[2024-09-12] MEDS: Alteplase 2 MG/2 ML Vial IV (16:00)
[2024-09-12 16:15] VITALS: BP 142/80; PULSE 86; RESP 16; TEMP 36.6; O2SAT 100
== END 2024-09-12 16:25 | disposition home or self-care (01) ==
PROVIDERS: Emergency Provider Emergency Medicine; PCP Family Medicine; Visit Provider Emergency Medicine
DX: T82.49XA Other complication of vascular dialysis catheter, initial encounter (principal); I12.0 Hypertensive chronic kidney disease with stage 5 chronic kidney disease or end stage renal disease; N18.6 End stage renal disease; E11.22 Type 2 diabetes mellitus with diabetic chronic kidney disease; Z79.4 Long term (current) use of insulin; E78.00 Pure hypercholesterolemia, unspecified; Z87.891 Personal history of nicotine dependence; Z99.2 Dependence on renal dialysis; F32.A Depression, unspecified; Z79.899 Other long term (current) drug therapy; K85.90 Acute pancreatitis without necrosis or infection, unspecified; K21.9 Gastro-esophageal reflux disease without esophagitis; Z90.49 Acquired absence of other specified parts of digestive tract
CPT/HCPCS: 96374; 99282; J2997

== ENCOUNTER → 2024-09-13 | Outpatient (CLI) | payer MEDICAID, SELFPAY ==
--- NOTE | 2024-09-13 12:47 | AVDS_ITS ---
Reason For Study: S/P R BRACHECEPHALIC FISTULA RIGHT Two branches noted in prox/mid graft. Inflow, 303.2/156.7 cm/s. Inflow, 1864 ml/min. Anastamosis, 527.4/278.9 cm/s. Anastomosis, 6011 ml/min. Prox Graft, 247.8/108.8 cm/s. Prox Graft, 2667 ml/min. Mid Graft, 202.5/108.8 cm/s. Mid Graft, 1847 ml/min. Dist Graft, 202.4/111.9 cm/s. Dist Graft, 1732 ml/min. Outflow, 215.2/118.3 cm/s. Outflow, 1471 ml/min. VL/AV Fistula/Dialysis Graft Scan Interpretation Summary Patent right brachio-cephalic fistula with no stenosis, adequate flow volumes a nd caliber. Small branches noted mid fistula. Ordering Physician: Cynthia Hutchins Referring Physician: TEODORO EAST MD Performed By: Brian Gautam RVT and Student
== END | disposition home or self-care (01) ==
LOC: CVS 12:46
PROVIDERS: PCP Family Medicine; Referring Provider Physician Assistant; Visit Provider Physician Assistant
DX: I77.0 Arteriovenous fistula, acquired (principal); Z48.812 Encounter for surgical aftercare following surgery on the circulatory system
CPT/HCPCS: 93990

== ENCOUNTER 2024-10-30 07:21 | Day surgery (SDC) | payer MEDICAID, SELFPAY ==
[2024-10-29 12:46] VITALS: BMI 30.9
--- NOTE | 2024-10-30 09:26 | HP.PCM_ITS ---
HPI - General HPI Narrative REGINALDO HUFFMAN, is a 54 M who presents with ESRD currently on dialysis. He now has a right arm fistula that is functioning well. He has a tunneled right IJ catheter that he no longer uses. He presents for removal. [facility] Medical History History of hemodialysis History of renal dialysis Hemodialysis patient Anemia due to chronic blood loss Positive fecal occult blood test Cancer Insulin dependent diabetes mellitus History of renal disease Low iron Easy bruising Wears glasses Arthritis Fatty liver Restless legs Former smoker Leg cramps History of edema History of stress test History of echocardiogram Syncope Hx of vertigo Therapeutic drug monitoring History of colon cancer Trigeminal nerve disorder portacath placement GERD (gastroesophageal reflux disease) High cholesterol Hepatitis C Depressive disorder Obesity Seizure disorder Asthma History of alcohol abuse Pancreatitis Sezary disease Home Medications ?Medication ?Instructions ?Recorded ?Last Taken ?Type cholecalciferol (vitamin D3) 25 1,000 unit PO TUTHSA s upplement 10/10/13 11/13/15 History mcg (1,000 unit) capsule sertraline 100 mg tablet 100 mg PO QHS depression 11/13/15 History multivitamin with folic acid 400 1 tab PO DAILY supple ment 10/21/14 11/13/15 History mcg tablet rosuvastatin 40 mg tablet 40 mg PO QHS cholesterol 07/23/24 01:00 History fish oil-dha-epa 1,200 mg-144 1 each PO DAILY suppleme nt 11/14/20 Unknown History mg-216 mg capsule albuterol sulfate 90 mcg/actuation 1 - 2 puff inhalati on Q4H PRN PRN 10/16/23 Unknown Rx aerosol inhaler (Ventolin HFA) Wheezing #1 inh gemfibrozil 600 mg tablet 600 mg PO BID pancreatitis 0 12/08/23 12/07/23 10:00 History prevention nadolol 40 mg tablet 40 mg PO BID heart 12/18/23 07/23/24 05:30 History insulin lispro 100 unit/mL 18 unit (0.18 mL) subcut TI D blood 03/12/24 Unknown Rx subcutaneous pen (Admelog SoloStar glucose #60 mL U-100 Insulin lispro) pantoprazole 20 mg tablet,delayed 40 mg (2 x 20 mg) PO DAILY reflux 04/30/24 Unknown Rx release #90 TABLETS carbamazepine 200 mg tablet 600 mg (3 x 200 mg) PO BID 05/07/24 07/05/24 Rx seizures #540 tabs calcitriol 0.5 mcg capsule 0.5 mcg PO DAILY bone healt h 05/30/24 Unknown History furosemide 40 mg tablet 40 mg PO DAILY diuretic 05/28 09/20 Unknown History clonidine HCl 0.1 mg tablet 0.1 mg PO TID hypertension 06/12/24 07/23/24 History ergocalciferol (vitamin D2) 1,250 1,250 mcg PO MOWEFR VITAMIN 07/03/24 Unknown History mcg (50,000 unit) capsule nadolol 20 mg tablet 20 mg PO BID heart 07/03/24 07/23/24 05:30 History sevelamer carbonate 800 mg tablet 800 mg PO TIDCM phos phate binder 07/03/24 Unknown History spironolactone 50 mg tablet 100 mg PO DAILY diuretic 1 09/02/23 Unknown History aripiprazole 2 mg tablet 2 mg PO QHS mental health Unknown History hydralazine 25 mg tablet 25 mg PO BID 30 days #60 tab s 07/10/24 Unknown Rx losartan 50 mg tablet 50 mg PO DAILY 30 days #30 t abs 07/10/24 07/23/24 01:00 Rx insulin glargine 100 unit/mL (3 20 unit subcut BID ziyad betes 07/19/24 Unknown History mL) subcutaneous pen (Lantus Solostar U-100 Insulin) gabapentin 100 mg capsule 100 mg PO TID nerve pain #27 0 caps 07/22/24 Unknown Rx oxycodone 5 mg tablet 5 mg PO Q8H PRN pain 3 days #9 tabs 07/23/24 Unknown Rx blood sugar diagnostic (FreeStyle #100 ea 09/30/24 Unk nown Rx Lite Strips) Allergy/AdvReac Type Severity Reaction Status Date / Time doxazosin (From Cardura) Allergy Severe Bleeding Verified 09/30/24 13:22 erythromycin base Allergy Severe Hives Verified 09/30/24 13:22 loratadine (From Claritin) Allergy Severe Rash Verified 09/30/24 13:22 amlodipine AdvReac nausea/diar Verified 09/30/24 13:22 darryl/dizzin ess Family History Grandmother Cervical cancer Diabetes Hypertension Trigeminal neuralgia Mother Uterine cancer Arthritis Diabetes Hypertension Grandfather Heart disease Arthritis Diabetes Hypertension Unknown Diabetes Arthritis Father Arthritis Diabetes Hypertension Sister Diabetes Hypertension Uncle CVA (cerebral vascular accident) Aunt Cerebral aneurysm Surgical History Hx of esophagogastroduodenoscopy Hx of appendectomy H/O left hemicolectomy Social History Smoking Status: Former smoker Tobacco: How many years used: 20 how long ago did patient quit smoking: quit 2003 second hand exposure: No alcohol intake: former details: quit 2003 substance use type: former substance user Date of last use: Used Marijuana since he was a teenager ROS Constitutional Constitutional: Denies chills, fever(s), frequent falls, lethargy or weakness Eyes Eyes: Denies blind spots, change in vision or loss of vision ENT HEENT: Denies bleeding gums, hoarseness or sore throat Cardiovascular Cardiovascular: Denies abdominal pain, bluish discoloration of hand/feet, chest pain with activity, claudication, cold extremities, cyanosis, dyspnea on exertion, erythema on extremities, irregular heart rhythm, leg edema, leg ulcers, numbness in extremities or weakness in extremities Respiratory/Chest Respiratory/Chest: Denies cough, excessive phlegm production, shortness of breath at rest, shortness of breath with exertion or wheezing Gastrointestinal Gastrointestinal: Denies anorexia, change in stool character, constipation, diarrhea, melena or rectal bleeding Genitourinary Genitourinary: Denies dysuria or hematuria Musculoskeletal Musculoskeletal: Denies abnormal gait Integumentary Integumentary: Reports other Details: ; Denies erythema, non-healing lesions or wounds Neurologic Neurologic: Denies abnormal speech, focal weakness, headache(s), loss of vision, numbness, paresthesias or sensory deficit Hematologic/Lymphatic Hematologic/Lymphatic: Denies easy bleeding, easy bruising or lymphadenopathy Vital Signs Vital Signs Vital Signs: Weight Weight: 203 lb Body Mass Index (BMI) 30.9 Physical Exam Const alert, oriented x3, no apparent distress and healthy appearing General Appearance: cooperative; Negative for combative or lethargic Orientation / Consciousness: awake Exam Limitations: no limitations HEENT Head and Scalp: normocephalic and atraumatic Eyes EOMs intact bilaterally General Eye: normal appearance of both eyes Neck full ROM General: trachea midline Resp normal respiratory effort and no use of accessory muscles Effort and Inspection: Negative for labored, stridor or audible wheezes Cardio regular rate and regular rhythm Back/Spine Cervical Spine: cervical ROM normal Extremity full ROM, normal capillary refill and no clubbing, cyanosis or edema Skin no rashes or lesions noted and no wounds Neuro oriented x3, CN's II-XII intact bilaterally, no focal motor deficits and no sensory deficits noted Psych thought process normal, cooperative, affect normal, speech normal and activity/motor behavior normal Assessment & Plan Assessment/Plan (1) Vascular dialysis catheter in place: PLAN: -remove catheter
--- NOTE | 2024-10-30 15:59 | PCM.OPRPT ---
Operative Report (Standard) Operative Information Date of Procedure: 10/30/24 Pre-Operative Diagnosis: End-stage renal disease, tunneled catheter no longer in use Post-Operative Diagnosis: Same Surgery/Procedure Performed: Removal right internal jugular tunneled dialysis catheter candy butcher: No Type of Anesthesia: Local and Sedation,Conscious Procedure Start Time: 10:30 Procedure Stop Time: 11:45 Select all DRAINS/GRAFTS/IMPLANTS that apply: None Estimated Blood Loss: 2 Specimen collected: No Description of surgery: HPI: Patient is a 54-year-old male with end-stage renal disease currently on dialysis and successfully using a right upper extremity AV fistula. He has a prior right IJ tunneled catheter which she is no longer using. He is taken now for catheter removal. Description of procedure: Upon obtaining form consent and verification correct patient procedure site patient taken to the Regional Sales Representative where he was positioned prepped and draped in usual sterile fashion. Timeouts performed conscious ideation administered Versed and fentanyl. Skin along the tunnel of the catheter was then anesthetized 1% lidocaine and the previously placed sutures were removed. The cuff was at the superior extent of the tunnel so a secondary incision was made over the cuff and sharp dissection used to dissect down to the catheter. Sharp and blunt dissection was then used to free the surrounding soft tissue from the catheter and the catheter cuff until was freely mobile. The catheter was then withdrawn and manual pressure held at the IJ access site for 10 minutes until hemostasis was obtained. The counterincision was then closed with 3-0 Vicryl followed by Dermabond. Dry sterile dressing were then applied and patient taken to recovery with plan discharged home. Surgical Findings: See above Complications Complications: No
== END 2024-10-30 11:45 | disposition home or self-care (01) ==
PROVIDERS: PCP Family Medicine; Visit Provider Surgery Trauma Surgery
DX: Z45.2 Encounter for adjustment and management of vascular access device (principal); N18.6 End stage renal disease; Z79.4 Long term (current) use of insulin; E11.22 Type 2 diabetes mellitus with diabetic chronic kidney disease; E78.00 Pure hypercholesterolemia, unspecified; Z99.2 Dependence on renal dialysis; Z79.899 Other long term (current) drug therapy; Z87.891 Personal history of nicotine dependence
CPT/HCPCS: 36589; 99152; 99153; A4216

== ENCOUNTER → 2025-03-03 | Outpatient (CLI) | payer MEDICAID, SELFPAY | END | disposition home or self-care (01) | LOC: CVS 08:55 | PROVIDERS: PCP Family Medicine; Referring Provider Physician Assistant; Visit Provider Physician Assistant | DX: I77.0 Arteriovenous fistula, acquired (principal); N18.6 End stage renal disease | CPT/HCPCS: 93990 ==

== ENCOUNTER → 2025-05-02 | Outpatient (CLI) | payer MEDICAID, SELFPAY ==
--- NOTE | 2025-05-02 08:56 | CDU_ITS ---
Reason For Study Reason For Study: Rt Carotid Bruit Rt. Velocities/BP Lt. Velocities/BP Prox CCA 63/5 cm/sec. Prox CCA 89/13 cm/sec. Mid CCA 77/11 cm/sec. Mid CCA 82/14 cm/sec. Dist CCA 66/10 cm/sec. Dist CCA 88/14 cm/sec. Prox ICA 49/10 cm/sec. Prox ICA 62/11 cm/sec. Mid ICA 76/20 cm/sec. Mid ICA 62/17 cm/sec. Dist ICA 73/21 cm/sec. Dist ICA 59/15 cm/sec. Rt. ICA/CCA = 1.0. Lt. ICA/CCA = 0.8. Prox ECA 84/3 cm/sec. Prox ECA 83/4 cm/sec. Rt. Vert. 75/15 cm/sec. Lt. Vert. 79/20 cm/sec. Right Extracranial There is intimal thickening but no significant atherosclerotic plaque noted in the right common carotid artery. There is intimal thickening but no significant atherosclerotic plaque noted in the right internal carotid artery. There is no significant atherosclerotic plaque noted in the right external carotid artery. Antegrade flow is noted in the right vertebral artery. Left Extracranial There is intimal thickening but no significant atherosclerotic plaque noted in the left common carotid artery. There is intimal thickening but no significant atherosclerotic plaque noted in the left internal carotid artery. There is no significant atherosclerotic plaque noted in the left external carotid artery. Antegrade flow is noted in the left vertebral artery. Procedure Carotid Duplex [id number]. This is a Carotid Duplex examination using B-mode, color flow and specral Doppler. Exam performed in department. VL/Carotid Duplex Ultrasound Interpretation Summary Normal right extracranial internal carotid. Normal left extracranial internal carotid. Patent and antegrade vertebrals bilaterally. Ordering Physician: Robb Ojeda Referring Physician: Kimberlyn Garcia Performed By: Tabatha Cadet, JUSTA, RVT
[2025-05-02 10:34] LABS: Hematocrit 29.7 % (40-54); Hemoglobin 10.4 g/dL (13.0-16.5); Mean Corp Hgb Conc 35.0 g/dL (32-36); Mean Corpuscular Volume 100.3 fL (80-94); Mean Platelet Vol. 10.6 fl (6.2-12.0); Platelet Count 137 K/mm3 (150-450); RBC Distribution Width CV 16.3 % (11.6-14.6); RBC Distribution Width SD 60.0 fl (35.1-43.9); Red Blood Count 2.96 M/mm3 (4.6-6.2); White Blood Count 4.0 K/mm3 (4.4-11.0)
[2025-05-02 10:40] LABS: AST(SGOT) 11 U/L (<=37); Alanine Aminotransfer ALT/SGPT 8 U/L (<=46); Albumin, Serum 4.3 g/dL (3.5-5.0); Alkaline Phosphatase 114 U/L (40-129); Anion Gap 14 (5-15); BUN 30 mg/dL (4-19); BUN/Creat Ratio 5.5 RATIO (10-20); Calcium,Total 9.0 mg/dL (7.6-11.0); Carbon Dioxide 25.9 mmol/L (21.0-32.0); Chloride 95 mmol/L (98-108); Cholesterol 169 mg/dL (<=200); Globulin 3.1 g/dL (2.2-4.2); Glucose 203 mg/dL (70-99); Low Density Lipoprotein Calc. 50 mg/dL; PSA,Total - Annual Screen 0.64 ng/mL (0.02-4.00); Potassium 4.7 mmol/L (3.3-5.1); Triglycerides 414 mg/dL; Very Low Density Lipoprotein 83 mg/dL (5-40); cholesterol:hdl ratio screen 4.60
== END | disposition home or self-care (01) ==
PROVIDERS: PCP Family Medicine; Referring Provider Family Medicine; Visit Provider Psychiatry & Neurology Neurology
DX: R09.89 Other specified symptoms and signs involving the circulatory and respiratory systems (principal); E13.21 Other specified diabetes mellitus with diabetic nephropathy; E78.5 Hyperlipidemia, unspecified; Z12.5 Encounter for screening for malignant neoplasm of prostate; I10 Essential (primary) hypertension
CPT/HCPCS: 84153; 36415; 80053; 80061; 83036; 85027; 93880; G0103

== ENCOUNTER 2025-06-04 08:03 | Day surgery (SDC) | payer MEDICAID, SELFPAY ==
[2025-06-03 07:55] VITALS: BMI 30.2
--- NOTE | 2025-06-04 12:06 | PCM.HP.STD ---
HPI - General HPI Narrative REGINALDO HUFFMAN, is a 54 M who presents with prolonged bleeding from fistula. [facility], [facility] Medical History Vascular dialysis catheter in place History of hemodialysis History of renal dialysis Hemodialysis patient Anemia due to chronic blood loss Positive fecal occult blood test Cancer Insulin dependent diabetes mellitus History of renal disease Low iron Easy bruising Wears glasses Arthritis Fatty liver Restless legs Former smoker Leg cramps History of edema History of stress test History of echocardiogram Syncope Hx of vertigo Therapeutic drug monitoring History of colon cancer Trigeminal nerve disorder portacath placement GERD (gastroesophageal reflux disease) High cholesterol Hepatitis C Depressive disorder Obesity Seizure disorder Asthma History of alcohol abuse Pancreatitis Sezary disease Home Medications ?Medication ?Instructions ?Recorded ?Last Taken ?Type cholecalciferol (vitamin D3) 25 1,000 unit PO TUTHSA supplement 10/10/13 11/13/15 History mcg (1,000 unit) capsule sertraline 100 mg tablet 100 mg PO QHS depression 07/18/14 06/04/25 History multivitamin with folic acid 400 1 tab PO DAILY supplement 10/21/14 11/13/15 History mcg tablet rosuvastatin 40 mg tablet 40 mg PO QHS cholesterol 11/24/16 07/23/24 01:00 History fish oil-dha-epa 1,200 mg-144 1 each PO DAILY supplement 11/14/20 Unknown History mg-216 mg capsule albuterol sulfate 90 mcg/actuation 1 - 2 puff inhalation Q4H PRN PRN 10/16/23 Unknown Rx aerosol inhaler (Ventolin HFA) Wheezing #1 inh gemfibrozil 600 mg tablet 600 mg PO BID pancreatitis 12/08/23 12/07/23 10:00 History prevention nadolol 40 mg tablet 40 mg PO BID heart 12/18/23 06/04/25 History calcitriol 0.5 mcg capsule 0.5 mcg PO DAILY bone health 05/30/24 Unknown History clonidine HCl 0.1 mg tablet 0.1 mg PO TID hypertension 06/12/24 07/23/24 History ergocalciferol (vitamin D2) 1,250 1,250 mcg PO MOWEFR VITAMIN 07/03/24 Unknown History mcg (50,000 unit) capsule aripiprazole 2 mg tablet 2 mg PO QHS mental health 07/04/24 Unknown History losartan 50 mg tablet 50 mg PO DAILY 30 days #30 tabs 07/10/24 07/23/24 01:00 Rx blood sugar diagnostic (FreeStyle #100 ea 09/30/24 Unknown Rx Lite Strips) blood sugar diagnostic (OneTouch #100 ea 10/31/24 Unknown Rx Verio test strips) blood-glucose meter (OneTouch #1 ea 10/31/24 Unknown Rx Verio Reflect kit) pantoprazole 20 mg tablet,delayed 40 mg (2 x 20 mg) PO DAILY reflux 11/19/24 Unknown Rx release #90 TABLETS insulin lispro 100 unit/mL 18 unit (0.18 mL) subcut TID #60 mL 12/11/24 Unknown Rx subcutaneous pen (Admelog SoloStar U-100 Insulin lispro) insulin glargine 100 unit/mL (3 25 unit (0.25 mL) subcut ONCE 12/18/24 Unknown Rx mL) subcutaneous pen (Lantus diabetes #22.5 mL Solostar U-100 Insulin) pen needle, diabetic 31 gauge x #100 ea 12/18/24 Unknown Rx /16 (Comfort EZ Pen [place]) blood sugar diagnostic (True #100 ea 12/30/24 Unknown Rx Metrix Glucose Test Strip) blood-glucose meter (True Metrix #1 ea 12/30/24 Unknown Rx Air Glucose Meter kit) carbamazepine 200 mg tablet 600 mg (3 x 200 mg) PO BID 04/21/25 Unknown Rx seizures #540 tabs gabapentin 300 mg capsule 300 mg PO BID #60 caps 04/21/25 Unknown Rx trazodone 50 mg tablet 50 mg PO QHS PRN insomnia #30 tabs 04/21/25 Unknown Rx cholestyramine 4 gram oral powder 4 g PO HS #239.4 grams 05/07/25 Unknown Rx (Cholestyramine Light) sucroferric oxyhydroxide 500 mg 500 mg PO QAC 05/07/25 Unknown History chewable tablet (Velphoro) hydralazine 50 mg tablet 50 mg PO TID 06/04/25 06/04/25 History Allergy/AdvReac Type Severity Reaction Status Date / Time doxazosin (From Cardura) Allergy Severe Bleeding Verified 04/21/25 07:53 erythromycin base Allergy Severe Hives Verified 04/21/25 07:53 loratadine (From Claritin) Allergy Severe Rash Verified 04/21/25 07:53 amlodipine AdvReac nausea/diar Verified 04/21/25 07:53 darryl/dizzin ess Family History Grandmother Cervical cancer Diabetes Hypertension Trigeminal neuralgia Mother Uterine cancer Arthritis Diabetes Hypertension Grandfather Heart disease Arthritis Diabetes Hypertension Unknown Diabetes Arthritis Father Arthritis Diabetes Hypertension Sister Diabetes Hypertension Uncle CVA (cerebral vascular accident) Aunt Cerebral aneurysm Surgical History Hx of esophagogastroduodenoscopy Hx of appendectomy H/O left hemicolectomy Social History Smoking Status: Former smoker Tobacco: How many years used: 20 how long ago did patient quit smoking: quit 2003 second hand exposure: No alcohol intake: former details: quit 2003 substance use type: former substance user Date of last use: Used Marijuana since he was a teenager ROS Constitutional Constitutional: Denies chills, fever(s), frequent falls, lethargy or weakness Eyes Eyes: Denies blind spots, change in vision or loss of vision ENT HEENT: Denies bleeding gums, hoarseness or sore throat Cardiovascular Cardiovascular: Denies abdominal pain, bluish discoloration of hand/feet, chest pain with activity, claudication, cold extremities, cyanosis, dyspnea on exertion, erythema on extremities, irregular heart rhythm, leg edema, leg ulcers, numbness in extremities or weakness in extremities Respiratory/Chest Respiratory/Chest: Denies cough, excessive phlegm production, shortness of breath at rest, shortness of breath with exertion or wheezing Gastrointestinal Gastrointestinal: Denies anorexia, change in stool character, constipation, diarrhea, melena or rectal bleeding Genitourinary Genitourinary: Denies dysuria or hematuria Musculoskeletal Musculoskeletal: Denies abnormal gait Integumentary Integumentary: Reports other Details: ; Denies erythema, non-healing lesions or wounds Neurologic Neurologic: Denies abnormal speech, focal weakness, headache(s), loss of vision, numbness, paresthesias or sensory deficit Hematologic/Lymphatic Hematologic/Lymphatic: Denies easy bleeding, easy bruising or lymphadenopathy Vital Signs Vital Signs Vital Signs: Weight Weight: 199 lb Body Mass Index (BMI) 30.2 Physical Exam Const alert, oriented x3, no apparent distress and healthy appearing General Appearance: cooperative; Negative for combative or lethargic Orientation / Consciousness: awake Exam Limitations: no limitations HEENT Head and Scalp: normocephalic and atraumatic Eyes EOMs intact bilaterally General Eye: normal appearance of both eyes Neck full ROM, no lymphadenopathy, thyroid normal and No no carotid bruits General: trachea midline; Negative for lymphadenopathy or tenderness Thyroid: thyroid normal Lymph Lymphatic: Negative for no lymphadenopathy noted Resp normal respiratory effort and no use of accessory muscles Effort and Inspection: Negative for labored, stridor or audible wheezes Cardio regular rate and regular rhythm Cardio Narrative: fistula pulsatile Peripheral Pulses: brachial pulses present Back/Spine Cervical Spine: cervical ROM normal Extremity full ROM, normal capillary refill and no clubbing, cyanosis or edema Skin no rashes or lesions noted and no wounds Neuro oriented x3, CN's II-XII intact bilaterally, no focal motor deficits and no sensory deficits noted Psych thought process normal, cooperative, affect normal, speech normal and activity/motor behavior normal Assessment & Plan Assessment/Plan (1) Arteriovenous fistula stenosis: QUALIFIERS: Encounter type: initial encounter Qualified Code(s): T82.858A - Stenosis of other vascular prosthetic devices, implants and grafts, initial encounter PLAN: -fistulagram
--- NOTE | 2025-06-04 16:38 | PCM.OPRPT ---
Operative Report (Standard) Operative Information Date of Procedure: 06/04/25 Pre-Operative Diagnosis: Stenosis of right upper extremity fistula Post-Operative Diagnosis: Same Surgery/Procedure Performed: Fistulogram with angioplasty Intravascular ultrasound superior vena cava, right innominate vein, right subclavian/axillary vein, right cephalic vein fistula Angioplasty cephalic vein at the arch negative stripper: No Type of Anesthesia: Local and Sedation,Conscious Procedure Start Time: 11:00 Procedure Stop Time: 12:00 Select all DRAINS/GRAFTS/IMPLANTS that apply: None Estimated Blood Loss: 2 Specimen collected: No Description of surgery: HPI: Patient is a 54-year-old male with a previous right brachiocephalic fistula. This has developed prolonged bleeding and is more pulsatile in nature so he is taken now for fistulogram. Description of procedure: Upon obtaining informed consent and verification correct patient procedure site the patient was taken the [facility] where he was positioned prepped and draped in usual sterile fashion. Timeout was performed Sedation ministered Versed and fentanyl. Skin overlying the fistula was anesthetized 1% lidocaine the vessel accessed under ultrasound guidance with a micropuncture needle wire. This was exchanged for a short 7 [place] sheath advanced without resistance. Through the micropuncture sheath hand-injection subtraction angiography of the fistula in the outflow to include the atriocaval junction was performed. This revealed normal caliber fistula with no stenosis and brisk contrast transit. At the cephalic arch there were multiple collateral vessels that exited the fistula and then returned just prior to the confluence with the axillary vein. This area had relative smaller caliber compared to the vein more proximal and distal. The axillary subclavian vein were normal caliber with brisk contrast transit as well as the innominate and superior vena cava. An 018 wire was then advanced through the sheath into the superior vena cava followed by intravascular ultrasound probe. Recorded pullback was performed from the superior vena cava to the sheath which confirmed caliber reduction in the cephalic vein prior to its confluence with the axillary vein and what appeared to be either webbing or prominent thickened valve. This also provided reference vessel sizing. The patient was then heparinized and allowed to circulate for 3 minutes. The ultrasound was then withdrawn and a 7 mm x 40 [place] angioscope balloon was advanced in position inflated for multiple inflations to cover the extent of the stenosis. Repeat imaging revealed improvement in the lumen caliber but continued filling of collateral veins and no extravasation or dissection. Next an 8 mm x 40 Bard conquest angioplasty balloon was then advanced and inflated for multiple inflations to cover the extent of the lesion. This was then followed by a 9 x 40 Bard conquest angioplasty balloon advanced and inflated for multiple inflations. Repeat angiography revealed significant reduction in the collateral branch contrast filling. It was felt that upsizing to the 10 mm drug-coated and plasty balloon would be accommodated so a 10 mm x 60 Bard Judith tonics paclitaxel coated angioplasty balloon was advanced in position inflated to nominal for 2 minutes covering the entirety of the treatment zone. This was then deflated and withdrawn and completion angiography confirmed resolution of the collateral branch filling with no extravasation or dissection and no residual luminal narrowing. Wires and catheters were then withdrawn and a nylon pursestring suture placed at the access site after which the sheath was withdrawn and manual pressure held to hemostasis was observed. Patient was then taken to the recovery area plan discharge to home. Surgical Findings: See above Complications Complications: No
== END 2025-06-04 13:10 | disposition home or self-care (01) ==
PROVIDERS: PCP Family Medicine; Referring Provider Surgery Trauma Surgery; Visit Provider Surgery Trauma Surgery
DX: T82.858A Stenosis of other vascular prosthetic devices, implants and grafts, initial encounter (principal); E11.9 Type 2 diabetes mellitus without complications; Z87.891 Personal history of nicotine dependence; K21.9 Gastro-esophageal reflux disease without esophagitis; E78.00 Pure hypercholesterolemia, unspecified; T82.838A Hemorrhage due to vascular prosthetic devices, implants and grafts, initial encounter; J45.909 Unspecified asthma, uncomplicated; Y71.8 Miscellaneous cardiovascular devices associated with adverse incidents, not elsewhere classified
CPT/HCPCS: 36902; 37252; 37253; 76937; 99152; 99153; C1725; C1753; C1894; C2623; Q9967; A4216; C1769

== ENCOUNTER → 2025-06-30 | Outpatient (CLI) | payer MEDICAID, SELFPAY ==
[2025-06-30 15:30] LABS: Carbamazepine (Tegretol) 2.8 ug/mL (4.0-12.0)
== END | disposition home or self-care (01) ==
LOC: MTLAB 11:07
PROVIDERS: PCP Family Medicine; Referring Provider Psychiatry & Neurology Neurology; Visit Provider Psychiatry & Neurology Neurology
DX: G50.0 Trigeminal neuralgia (principal)
CPT/HCPCS: 36415; 80156

== ENCOUNTER 2025-08-21 08:16 | Emergency (ER) | payer MEDICAID, SELFPAY ==
[2025-08-21 08:16] VITALS: BP 159/97; PULSE 64; RESP 15; TEMP 37.2; O2SAT 100; BMI 30.2
--- NOTE | 2025-08-21 08:32 | EDS_ITS ---
HPI History of Present Illness Chief Complaint: Complaint Narrative Narrative: Patient is a 54-year-old male presenting to the emergency department for painless hematuria that started this morning. Patient has a past medical history of diabetes, end-stage renal disease on hemodialysis Monday typically, nonalcoholic fatty liver disease, chronic anemia, hepatitis C, esophageal varices, hypertension, colon cancer diagnosed in 2013 for which he received surgery and chemotherapy now in remission. He is on daily baby aspirin, denies any OAC. He used to take plavix but is no longer on this. Patient states that yesterday he did not have any symptoms. He states in the middle night around 3 AM he had some pink tinged urine. This morning when he woke up he had dark bloody urine. He states this has never happened before. Denies recent urologic procedures. He endorses urinary urgency. Denies abdominal pain, flank pain, dysuria, diarrhea, constipation. Endorses subjective chills over the past week, denies fevers. Denies chest pain or SOB. Reports nausea yesterday that has since resolved, no vomiting. Denies lightheadedness or dizziness. Patient denies being sexually active. [facility] Medical History Vascular dialysis catheter in place History of hemodialysis History of renal dialysis Hemodialysis patient Anemia due to chronic blood loss Positive fecal occult blood test Cancer Insulin dependent diabetes mellitus History of renal disease Low iron Easy bruising Wears glasses Arthritis Fatty liver Restless legs Former smoker Leg cramps History of edema History of stress test History of echocardiogram Syncope Hx of vertigo Therapeutic drug monitoring History of colon cancer Trigeminal nerve disorder portacath placement GERD (gastroesophageal reflux disease) High cholesterol Hepatitis C Depressive disorder Obesity Seizure disorder Asthma History of alcohol abuse Pancreatitis Sezary disease Home Medications ?Medication ?Instructions ?Recorded ?Last Taken ?Type cholecalciferol (vitamin D3) 25 1,000 unit PO TUTHSA s upplement 10/10/13 11/13/15 History mcg (1,000 unit) capsule sertraline 100 mg tablet 100 mg PO QHS depression 06/04/25 History multivitamin with folic acid 400 1 tab PO DAILY supple ment 10/21/14 11/13/15 History mcg tablet rosuvastatin 40 mg tablet 40 mg PO QHS cholesterol 07/23/24 01:00 History fish oil-dha-epa 1,200 mg-144 1 each PO DAILY suppleme nt 11/14/20 Unknown History mg-216 mg capsule albuterol sulfate 90 mcg/actuation 1 - 2 puff inhalati on Q4H PRN PRN 10/16/23 Unknown Rx aerosol inhaler (Ventolin HFA) Wheezing #1 inh gemfibrozil 600 mg tablet 600 mg PO BID pancreatitis 0 12/08/23 12/07/23 10:00 History prevention nadolol 40 mg tablet 40 mg PO BID heart 12/18/23 06/04/25 History calcitriol 0.5 mcg capsule 0.5 mcg PO DAILY bone healt h 05/30/24 Unknown History clonidine HCl 0.1 mg tablet 0.1 mg PO TID hypertension 06/12/24 07/23/24 History ergocalciferol (vitamin D2) 1,250 1,250 mcg PO MOWEFR VITAMIN 07/03/24 Unknown History mcg (50,000 unit) capsule aripiprazole 2 mg tablet 2 mg PO QHS mental health Unknown History losartan 50 mg tablet 50 mg PO DAILY 30 days #30 t abs 07/10/24 07/23/24 01:00 Rx blood sugar diagnostic (OneTouch #100 ea 10/31/24 Unkn own Rx Verio test strips) blood-glucose meter (OneTouch #1 ea 10/31/24 Unknown R x Verio Reflect kit) pantoprazole 20 mg tablet,delayed 40 mg (2 x 20 mg) PO DAILY reflux 11/19/24 Unknown Rx release #90 TABLETS insulin glargine 100 unit/mL (3 25 unit (0.25 mL) subc ut ONCE 12/18/24 Unknown Rx mL) subcutaneous pen (Lantus diabetes #22.5 mL Solostar U-100 Insulin) pen needle, diabetic 31 gauge x #100 ea 12/18/24 Unkno wn Rx 01/10 (Comfort EZ Pen [place]) sucroferric oxyhydroxide 500 mg 500 mg PO QAC 05/07/25 Unknown History chewable tablet (Velphoro) clopidogrel 75 mg tablet (Plavix) 75 mg PO DAILY #30 t abs 06/04/25 Unknown Rx hydralazine 50 mg tablet 50 mg PO TID 06/04/25 History aspirin 81 mg tablet,delayed 81 mg PO QDAY 06/18/25 Un known History release (Adult Aspirin Regimen) carbamazepine 200 mg tablet 600 mg (3 x 200 mg) PO BID 06/30/25 Unknown Rx seizures #540 tabs gabapentin 300 mg capsule 300 mg PO BID #180 caps 11/19 Unknown Rx trazodone 50 mg tablet 50 mg PO QHS PRN insomnia #9 0 tabs 06/30/25 Unknown Rx cholestyramine 4 gram oral powder 4 g PO QHS #231 GMS 07/29/25 Unknown Rx (Cholestyramine Light) insulin lispro 100 unit/mL 18 unit (0.18 mL) subcut TI D #60 mL 08/15/25 Unknown Rx subcutaneous pen (Admelog SoloStar U-100 Insulin lispro) cephalexin 250 mg capsule 250 mg PO Q12H 7 days #14 ca ps 08/21/25 Unknown Rx Allergy/AdvReac Type Severity Reaction Status Date / Time doxazosin (From Cardura) Allergy Severe Bleeding Verified 08/21/25 08:22 erythromycin base Allergy Severe Hives Verified 08/21/25 08:22 loratadine (From Claritin) Allergy Severe Rash Verified 08/21/25 08:22 amlodipine AdvReac nausea/diar Verified 08/21/25 08:22 darryl/dizzin ess Family History Grandmother Cervical cancer Diabetes Hypertension Trigeminal neuralgia Mother Uterine cancer Arthritis Diabetes Hypertension Grandfather Heart disease Arthritis Diabetes Hypertension Unknown Diabetes Arthritis Father Arthritis Diabetes Hypertension Sister Diabetes Hypertension Uncle CVA (cerebral vascular accident) Aunt Cerebral aneurysm Surgical History Hx of esophagogastroduodenoscopy Hx of appendectomy H/O left hemicolectomy Social History Smoking Status: Former smoker Tobacco: How many years used: 20 how long ago did patient quit smoking: quit 2003 second hand exposure: No alcohol intake: former details: quit 2003 substance use type: former substance user Date of last use: Used Marijuana since he was a teenager ROS ROS ED ROS Narrative see HPI EXAM Physical Exam Narrative Exam Narrative: Vital signs: Reviewed General: Alert and orientedx3. No acute distress. Chronically ill appearing, nontoxic. HEENT: Head is normocephalic and atraumatic, sinuses nontender, pupils equal round and reactive. No conjunctival pallor. Nares are patent. Oropharynx and throat exams normal. Neck: Supple without lymphadenopathy nontender Cardiovascular: Regular rate and rhythm, no murmurs. No rubs or gallops. Normal S1 and S2 Respiratory: Clear to auscultation bilaterally. No wheezes, rales, rhonchi Abdominal: Soft and nontender. Normal bowel sounds. No guarding or rebound. Nonsurgical abdomen. No CVA tenderness bilaterally. : Done with campus manager RNVibha at bedside. Normal scrotal exam with no tenderness on palpation, swelling or erythema. No penile lesions. No penile swelling or discharge. Normal urethral meatus. No active bleeding from meatus noted. There are a few spots of light cola colored blood-tinged urine on the underwear. Extremities: RUE fistula with palpable thrill. No tenderness. No bruising. Normal range of motion. Normal sensation. Skin: No rash or redness. No pallor. No bruising or petechiae noted. Neurological: Cranial nerves II through XII are grossly intact. Normal strength and sensation. Normal cerebellar function The rest of the physical exam is unremarkable Const Vital Signs: 08/21/25 08:16 08/21/25 10:14 Temperature 98.9 F 97.8 F Temperature Source Axillary Pulse Rate 64 64 Respiratory Rate 15 15 Blood Pressure 159/97 H 175/77 H Blood Pressure Mean 117 109 Pulse Ox 100 99 Oxygen Delivery Method Room Air MDM MDM MDM Narrative Medical decision making narrative: Patient is a 54-year-old male presenting to the emergency department for painless hematuria that started last evening in the middle of the night. Patient was seen and examined. Vitals are stable. No tachycardia, heart rate of 64. BP stable 159/97. He is afebrile saturating 100% on room air with normal respirations of 15. He is resting in bed comfortably in no acute distress. He is and nontoxic-appearing. Differential includes but is not limited to: Urinary tract infection, bladder mass, nephrolithiasis, pyelonephritis Will obtain basic blood work including CBC and BMP to assess kidney function, electrolytes and assess for any anemia. CT of the abdomen obtained to evaluate for any bladder mass. Urinalysis obtained to evaluate for any urinary tract infection. CBC with no leukocytosis and baseline chronic anemia of 8.1. BMP with baseline kidney dysfunction. Urinalysis shows evidence of possible urinary tract infection with leukocyte esterase and small amount of WBC with rare bacteria. Will send for urine culture. Given the patient's hematuria and symptoms of urinary urgency will treat as a UTI. Will give first dose of Keflex here. This will be renally dosed based off his creatinine clearance. CT shows bladder wall thickening may represent cystitis. Perinephric fat stranding without hydronephrosis or nephrolithiasis consistent with urinary tract infection. Splenomegaly and prominent splenic and gastro-splenic varices concerning for portal hypertension and liver steatosis. Colonic diverticulosis without evidence of acute diverticulitis. Patient does not have any flank pain, not clinically pyelonephritis. Discussed findings with the patient. Instructed how to take antibiotics at home. I will provide him with urology follow-up given the UTI and hematuria. I explained if his hematuria does not clear with the antibiotics he needs to follow-up with the urologist for further workup. Instructed him to return if he develops any fever, vomiting, abdominal pain, flank pain or urinary retention from the hematuria. He was able to urinate here without any difficulty and has had no clots. All questions answered. Patient discharged from the Emergency Department. I do not feel that the patient's evaluation reveals any acute reason for admission at this time. I instructed them to either follow-up with their primary care physician or promptly return to the Emergency Department for reevaluation should symptoms worsen or new symptoms develop. I explained what symptoms would indicate the need to return to the emergency department. Shared decision making was used. The patient voiced understanding of the treatment plan and is agreeable with it. Clinical impression Hematuria UTI History & Record Review Discussion w/independent historian: Patient and Family Additional record(s) reviewed:: Prior labs Lab Data Attestation: I reviewed the patient's lab results. Labs: Laboratory Results - last 24 hr 08/21/25 08/21/25 08:46 09:20 WBC 6.0 RBC 2.37 L Hgb 8.1 L Hct 23.3 L MCV 98.3 H MCH 34.2 H MCHC 34.8 RDW Std Deviation 57.7 H RDW Coeff of Ever 16.2 H Plt Count 111 L MPV 9.9 Immature Gran % (Auto) 0.800 Neut % (Auto) 71.6 H Lymph % (Auto) 19.1 [place] % (Auto) 7.2 Eos % (Auto) 1.0 Baso % (Auto) 0.3 Absolute Neuts (auto) 4.3 Absolute Lymphs (auto) 1.14 Nucleated RBC % 0 Sodium 138 Potassium 4.0 Chloride 95 L Carbon Dioxide 28.3 Anion Gap 15 BUN 28 H Creatinine 5.40 H Estim Creat Clear Calc 16.64 L Est GFR (MDRD) Non-Af 12 L BUN/Creatinine Ratio 5.2 L Glucose 180 H Calcium 8.3 Urine Color SEE COMMENT BELOW Urine Clarity Cloudy Urine pH 8.0 Ur Specific [place] 1.015 Urine Protein 500 H Urine Glucose (UA) 100 H Urine Ketones Negative Urine Occult Blood 250 H Urine Nitrite Negative Urine Bilirubin Negative Urine Urobilinogen Normal Ur Leukocyte Esterase 500 H Urine RBC > 100 SEEN Urine WBC 10-25 SEEN Ur Squamous Epith Cells 0 SEEN Urine Bacteria RARE Urine Mucus 0 SEEN Radiography Diagnostic Testing: Clinical Impression(s) from Imaging Studies Abdomen/Pelvis CT 08/21/25 09:00 IMPRESSION: Bladder wall thickening may represent cystitis. Perinephric fat stranding without hydronephrosis or nephrolithiasis consistent with urinary tract infection. Splenomegaly and prominent splenic and gastro-splenic varices concerning for portal hypertension and liver steatosis. Colonic diverticulosis without evidence of acute diverticulitis. Reading Location: [facility] Discharge Plan Triage Chief Complaint: Complaint ED Provider: Liat Morales Dx/Rx/DC Orders Clinical Impression: UTI (urinary tract infection), Hematuria, Anemia in chronic kidney disease Instructions: Anemia, ED Hematuria, ED Bladder Infection, Male (Adult) Prescriptions: New cephalexin 250 mg capsule 250 mg PO Q12H 7 Days Qty: 14 0RF No Action clonidine HCl 0.1 mg tablet 0.1 mg PO TID (DME) pen needle, diabetic [Comfort EZ Pen [place]] 31 gauge x 5/16 needle See Rx Instructions .Route Qty: 100 5RF Rx Instructions: 4x/day insulin glargine [Lantus Solostar U-100 Insulin] 100 unit/mL (3 mL) insulin pen 25 unit subcut ONCE Qty: 22.5 1RF Velphoro 500 mg tablet,chewable 500 mg PO QAC aspirin [Adult Aspirin Regimen] 81 mg tablet,delayed release (DR/EC) 81 mg PO QDAY carbamazepine 200 mg tablet 600 mg PO BID Qty: 540 2RF gabapentin 300 mg capsule 300 mg PO BID Qty: 180 2RF trazodone 50 mg tablet 50 mg PO QHS PRN (Reason: insomnia) Qty: 90 2RF cholecalciferol (vitamin D3) 1,000 UNIT capsule 1,000 unit PO TUTHSA Patient Comments: VITAMIN sertraline 100 MG tablet 100 mg PO QHS multivitamin with folic acid 1 TABLET tablet 1 tab PO DAILY calcitriol 0.5 mcg capsule 0.5 mcg PO DAILY fish oil-dha-epa 1 EACH capsule 1 each PO DAILY gemfibrozil 600 mg tablet 600 mg PO BID ergocalciferol (vitamin D2) 1,250 mcg (50,000 unit) capsule 1,250 mcg PO MOWEFR Patient Comments: takes on wednesdays aripiprazole 2 mg Tablet 2 mg PO QHS losartan 50 mg Tablet 50 mg PO DAILY 30 Days Qty: 30 0RF albuterol sulfate [Ventolin HFA] 90 mcg/actuation HFA aerosol inhaler 1 - 2 puff inhalation Q4H PRN PRN (Reason: Wheezing) Qty: 1 0RF nadolol 40 mg tablet 40 mg PO BID Patient Comments: take with 20mg tablet. total dose = 60mg hydralazine 50 mg tablet 50 mg PO TID clopidogrel [Plavix] 75 mg tablet 75 mg PO DAILY Qty: 30 0RF rosuvastatin 40 MG tablet 40 mg PO QHS (DME) OneTouch Verio test strips Strip See Rx Instructions .Route Qty: 100 5RF Rx Instructions: TID (DME) blood-glucose meter [OneTouch Verio Reflect] Kit See Rx Instructions .Route Qty: 1 0RF Rx Instructions: As directed pantoprazole 20 mg tablet,delayed release (DR/EC) 40 mg PO DAILY Qty: 90 3RF Cholestyramine Light 4 gram powder 4 g PO QHS Qty: 231 2RF insulin lispro [Admelog SoloStar U-100 Insulin] 100 unit/mL insulin pen 18 unit subcut TID Qty: 60 1RF Primary Care Provider: Kimberlyn Garcia Referrals: Kimberlyn Garcia MD [Primary Care Provider, Family Practice] Ben Mcdonough MD [Med Staff - Active Staff, Urology] - As soon as possible Activity Restrictions/Additional Instructions: Please take the antibiotic 1 tablet every 12 hours for the next 7 days. I provided you with a urologist to follow-up with as soon as possible. You need to return if you develop fever, nausea, vomiting, abdominal or back pain or difficulty urinating. Your evaluation in the Emergency Department did not reveal any acute reason for admission. However, I want to emphasize that you may be early in the course of a disease process or illness even if it is not present. For this reason you should follow-up within 24 hours for reevaluation with either your primary care physician or if necessary back here in the Emergency Department. You should return to the Emergency Department immediately if your symptoms worsen or new symptoms develop. Print Language: Burundian Disposition Disposition: Home, Self Care Discharge Date/Time: 08/21/25 10:25
[2025-08-21 08:55] LABS: Hematocrit 23.3 % (40-54); Hemoglobin 8.1 g/dL (13.0-16.5); Immature Granulocytes Count 0.050 X10^3/uL (0.0-0.0); Mean Corp Hgb Conc 34.8 g/dL (32-36); Mean Corpuscular Volume 98.3 fL (80-94); Mean Platelet Vol. 9.9 fl (6.2-12.0); NRBC Flagged by Analyzer 0 % (0-5); Platelet Count 111 K/mm3 (150-450); RBC Distribution Width CV 16.2 % (11.6-14.6); RBC Distribution Width SD 57.7 fl (35.1-43.9); Red Blood Count 2.37 M/mm3 (4.6-6.2); White Blood Count 6.0 K/mm3 (4.4-11.0)
--- OUTSIDE RECORDS SUMMARY | 2025-08-21 08:57 | XMS RPT_ITS | CCD ---
Author Organization [facility] Care Team Providers Care Cake Tester Name Role Phone Jeancarlos Wolff MD Unavailable Chriss Cruz MD Primary Care Provider Dr. Chriss Cruz Primary Care Provider Dr. Chriss Cruz Referring Provider Skip PASSENGER SERVICE REPRESENTATIVE, SERGE Karimi Attending Provider Jeancarlos Wolff MD Unavailable Chriss Cruz MD Primary Care Provider Dr. Jimmie Ibarra Attending Provider Chriss Cruz MD Primary Care Provider Jeancarlos Wolff MD Unavailable Chriss Cruz MD Primary Care Provider Dr. Chriss Cruz Primary Care Provider Dr. Chriss Cruz Referring Provider Dr. Robb Paluson Attending Provider Dr. Jimmie Ibarra Attending Provider Dr. Galdino Hogan Emergency Provider Dr. Maria Antonia Renae Admit Provider Dr. Maria Antonia Renae Attending Provider Dr. Maria Antonia Renae Other Provider Dr. Donato Harrison Attending Provider Friend, Dr. Kwan Attending Provider Dr. Chriss Cruz Primary Care Provider Dr. Jimmie Ibarra Attending Provider Dr. Chriss Cruz Referring Provider Radhika OWUSU, SERGE Daily Attending Provider SERGE Timmons Attending Provider Shannan PASSENGER SERVICE REPRESENTATIVE, PASSENGER SERVICE REPRESENTATIVE-C Maureen Attending Provider FriendDr. Kwan Attending Provider Jeancarlos Wolff MD [facility] Trevin, Dr. Judd Primary Care Provider [place], Dr. Judd Referring Provider Shannan OWUSU, FRANCOISE-Abram Reddy Attending Provider SERGE Timmons [facility] Samuel Attending Provider Dr. Robb Paulson Attending Provider FriendDr. Kwan Attending Provider [phone] FriendDr. Kwan Other Provider DO Luciana Garcia Primary Care Provider DO Luciana Garcia Referring Provider Trevin, Dr. Judd Primary Care Provider [place], Dr. Judd Referring Provider Dr. Chriss Cruz Primary Care Provider [place], Dr. Judd Referring Provider Dr. Robb Paulson Attending Provider Dr. Aquiles Warren Attending Provider [phone] Dr. Aquiles Warren Other Provider [phone] DO Luciana Garcia Primary Care Provider DO Luciana Garcia Referring Provider Stacey, Dr. Samuel Attending Provider DO Luciana Garcia Primary Care Provider DO Luciana Garcia Referring Provider 1([facility])[phone] Dr. Chriss Cruz Referring Provider 1([facility])[phone] ASHER TimmonsC Grisel Attending Provider 1([facility])[phone] Dr. Kirk Schneider Emergency Provider 1([facility])[phone] Dr. Landry Barber Admit Provider Unavailabl e Dr. Landry Barber Other Provider Unavailabl e Dr. Jamaal Rm Other Provider 1([facility])[phone] Dr. Alfredo Ag Attending Provider 1([facility])[phone] Dr. Alfredo Ag Other Provider 1([facility])[phone] Kelvin, Dr. Kwan Attending Provider 1([facility])[phone] Chriss Cruz MD Primary Care Provider 1([facility])[phone] Haagen LOCKET MAKER.COMMERCIAL CENSUS TAKER, Lindsay Unavailable Suppan LOCKET MAKER.COMMERCIAL CENSUS TAKER, Ilene A Unavailable [phone] Kimberlyn East MD Primary Care Provider 1([facility])[phone] Suppan LOCKET MAKER.COMMERCIAL CENSUS TAKER, Ilene A Unavailable [phone] Kita GARCIA, Kimberlyn Primary Care Provider Unavailabl e Kita GARCIA, Kimberlyn Primary Care Provider Kita GARCIA, Kimberlyn Primary Care Provider 1([facility])[phone] Dr. Kirk Fernandez MD Attending Provider 1([facility])[phone] Dr. Kirk Fernandez MD Referring Provider 1([facility])[phone] Dr. Kirk Fernandez MD Other Provider 1([facility])[phone] Chriss Cruz MD Primary Care Provider 1([facility] )[phone] Dr. Chriss Cruz MD Referring Provider 1([facility])[phone] Dr. Jimmie Ibarra MD Attending Provider 1([facility])[phone] Dr. Radha Kelley DO Other Provider 1([facility])[phone] Kimberlyn East MD Referring Provider 1([facility])[phone] Iain PASSENGER SERVICE REPRESENTATIVE-C, Grisel Attending Provider 1([facility])[phone] Cynthia Valera Attending Provider 1([facility])[phone] Kimberlyn East MD Primary Care Provider Hutchins PA, Cynthia Referring Provider Jim GARCIA, Dr. Bradley Attending Provider Kita GARCIA, Kimberlyn Primary Care Provider Kita GARCIA, Kimberlyn Referring Provider Liset RIOS, Cynthia Attending Provider Trevin GARCIA, Dr. Judd Primary Care Provider Trevin GARCIA, Dr. Judd Referring Provider Stacey GARCIA, Dr. Samuel Attending Provider Warren BHAKTA, Dr. Garcia Other Provider [phone] Rusty GARCIA, Dr. Zamudio Attending Provider Trevin GARCIA, Dr. Judd Primary Care Provider Trevin GARCIA, Dr. Judd Referring Provider Stacey GARCIA, Dr. Samuel Attending Provider Warren BHAKTA, Dr. Garcia Other Provider [phone] Kelvin BHAKTA, Dr. Kwan Attending Provider Kita GARCIA, Kimberlyn Primary Care Physician Liset RIOS, Cynthia Attending Physician Jim GARCIA, Dr. Bradley Attending Physician Rusty GARCIA, Dr. Zamudio Attending Physician Trevin GARCIA, Dr. Judd Primary Care Physician Stacey GARCIA, Dr. Samuel Attending Physician Warren BHAKTA, Dr. Garcia Nurse Practitioner Rusty GARCIA, Dr. Zamudio Referring Provider [phone] Dr. Aquiles Warren DO Attending Physician [phone] Rusty GARCIA, Dr. Zamudio Referring Provider Jim GARCIA, Dr. Bradley Referring Provider Jim GARCIA, Dr. Bradley Nurse Practitioner ANISA, TYRESE S Referring Unavailable KITA, CHALON Primary Care Unavailable SOBOTKA, LILLIAN A Attending Unavailable ANISA, TYRESE S Referring Unavailable KITA, CHALON Primary Care Unavailable [place], LILLIAN A Attending Unavailable KITA, CHALON Primary Care Unavailable [place], LILLIAN A Attending Unavailable [place], LILLIAN A Referring Unavailable SELF, SELF Referring Unavailable KITA, CHALON Primary Care Unavailable [place], LILLIAN A Attending Unavailable KITA, CHALON Primary Care Unavailable [place], LILLIAN A Referring Unavailable [place], LILLIAN A Attending Unavailable SELF, SELF Referring Unavailable KITA, CHALON Primary Care Unavailable ANISA, TYRESE S Attending Unavailable SELF, SELF Referring Unavailable KIAT, CHALON Primary Care Unavailable ANISA, TYRESE S Attending Unavailable KITA, CHALON Primary Care Unavailable ANISA, TYRESE S Attending Unavailable ANISA, TYRESE S Referring Unavailable KITA, CHALON Primary Care Unavailable ANISA, TYRESE S Attending Unavailable ANISA, TYRESE S Referring Unavailable ANISA, TYRESE S Referring Unavailable KITA, CHALON Primary Care Unavailable KITA, CHALON Primary Care Unavailable IHISSCHEDULE, INTERVENTIONAL RAD Attending Unavailable IHISSCHEDULE, INTERVENTIONAL RAD Admitting Unavailable SOBOTKA, LILLIAN A Referring Unavailable KTIA, CHALON Primary Care Unavailable ANISA, TYRESE S Referring Unavailable KITA, CHALON Primary Care Unavailable ANISA, TYRESE S Attending Unavailable ANISA, TYRESE S Referring Unavailable KITA, CHALON Primary Care Unavailable ANISA, TYRESE S Attending Unavailable ANISA, TYRESE S Referring Unavailable Kita, Chalon Primary Care Unavailable Robb Paulson Attending Unavailable Robb Paulson Referring Unavailable Kita, Chalon Primary Care Unavailable [place], Kirk Referring Unavailable [place], Kirk Attending Unavailable Kita, Chalon Primary Care Unavailable Landry Barber Admitting Unavailable Fabrizio Tripp Attending Unavailable Radha Kelley Consulting Unavailable Landry Barber Consulting Unavailable Darren Bernal Consulting Unavailable Oswald Leahy Consulting Unavailable Alejandra Delcid Consulting Unavailable Kita, Chalon Primary Care Unavailable Jim, Kirk Attending Unavailable Landry Barber Admitting Unavailable Kita, Chalon Primary Care Unavailable Fabrizio Tripp Attending Unavailable Radha Kelley Consulting Unavailable Landry Barber Consulting Unavailable Darren Bernal Consulting Unavailable Oswald Leahy Consulting Unavailable Christiano Mensah Consulting Unavailable Adeli, Amichiqui Consulting Unavailable Hinduja, Radha Consulting Unavailable Antony, Cynthia Consulting Unavailable Arabella, Marjorie Consulting Unavailable Bruno Wilburn Consulting Unavailable Mackenzie Zhong Consulting Unavailable Fortunato Velasco Consulting Unavailable Kiki Singh Consulting Unavailable Surendra Frank Consulting Unavailable Yaneli Alvarado Consulting Unavailable Roberto Grubbs Consulting Unavailable Linda Harper Consulting Unavailable Brooks Nguyen Consulting Unavailable Grabiel, Albert Salter Consulting UnavailCash Rehman Consulting Unavailable Simi, Naina Consulting Unavailable Iain Laguerre Consulting Unavailable Farhana Kelley Consulting Unavailable Irina Galindo Consulting Unavailable Alejandra Delcid Consulting Unavailable Fabrizio Tripp Consulting Unavailable Kita, Chalon Primary Care Unavailable Hutchins, Cynthia Referring Unavailable [place] Kirk Attending Unavailable Kita, Chalon Primary Care Unavailable Jim, Kirk Attending Unavailable Hutchins, Cynthia Referring Unavailable Kita, Chalon Primary Care Unavailable Bandar Fernandezic Attending Unavailable Robb Paulson Referring Unavailable Oswald Leahy Attending Unavailable Alejandra Delcid Referring Unavailable Alejandra Delcid Attending Unavailable Kita, Chalon Primary Care Unavailable Galdino Hogan Attending Unavailable Kita, Chalon Referring Unavailable Kita, Chalon Primary Care Unavailable Robb Paulson Attending Unavailable Kita, Chalon Primary Care Unavailable Hutchins, Cynthia Referring Unavailable Hutchins, Cynthia Attending Unavailable Kita, Chalon Referring Unavailable Kita, Chalon Primary Care Unavailable Friend, Aquiles Attending Unavailable Kita, Chalon Primary Care Unavailable Radha Kelley Referring Unavailable Radha Kelley Attending Unavailable Kita, Chalon Primary Care Unavailable Tank Kelleyine Attending Unavailable Landry Barber Attending Unavailable Kita, Chalon Primary Care Unavailable [place], Kirk Referring Unavailable [place], Kirk Attending Unavailable Kita, Chalon Primary Care Unavailable Oswald Leahy Admitting Unavailable Oswald Leahy Attending Unavailable Benton Bundy Attending Unavailable Fabrizio Tripp Referring Unavailable Kita, Chalon Primary Care Unavailable Jim, Kirk Attending Unavailable Jim, Kirk Referring Unavailable [place], Kirk Consulting Unavailable Kita, Chalon Primary Care Unavailable Landry Barber Referring Unavailable Friend, Aquiles Attending Unavailable Kita, Chalon Primary Care Unavailable [place], Kirk Referring Unavailable [place], Kirk Consulting Unavailable Jim, Kirk Attending Unavailable Kita, Chalon Primary Care Unavailable [place], Krik Attending Unavailable Jim, Kirk Referring Unavailable [place], Kirk Consulting Unavailable Darren Bernal Attending Unavailable Landry Barber Referring Unavailable Friend, Aquiles Attending Unavailable Kita, Chalon Primary Care Unavailable Robb Paulson Attending Unavailable Baddour Robb Referring Unavailable Kita, Chalon Primary Care Unavailable Kita, Chalon Referring Unavailable Friend, Aquiles Attending Unavailable Kita, Chalon Primary Care Unavailable Hutchins, Cynthia Attending Unavailable Kita, Chalon Referring Unavailable Kita, Chalon Primary Care Unavailable Kita, Chalon Referring Unavailable Grisel Timmons Attending Unavailable Kita, Chalon Primary Care Unavailable Hutchins, Cynthia Attending Unavailable Kita, Chalon Referring Unavailable Kita, Chalon Primary Care Unavailable [place], Kirk Attending Unavailable Kita, Chalon Referring Unavailable Kita, Chalon Primary Care Unavailable Kita, Chalon Referring Unavailable Friend, Aquiles Attending Unavailable Kita, Chalon Primary Care Unavailable Kita, Chalon Referring Unavailable PraJimmie lemos Attending Unavailable Kita, Chalon Primary Care Unavailable Hutchins, Cynthia Attending Unavailable Kita, Chalon Referring Unavailable Kita, Chalon Primary Care Unavailable Hutchins, Cynthia Attending Unavailable Kita, Chalon Referring Unavailable Kita, Chalon Referring Unavailable Kita, Chalon Primary Care Unavailable Robb Paulson Attending Unavailable Kita, Chalon Primary Care Unavailable Hunter, Donato Attending Unavailable Kita, Chalon Primary Care Unavailable Hutchins, Cynthia Attending Unavailable Kita, Chalon Referring Unavailable Prah Jimmie Attending Unavailable Mound, Chriss Primary Care Unavailable Mound, Chriss Referring Unavailable Radha Kelley Consulting Unavailable Kita, Chalon Primary Care Unavailable Hutchins, Cynthia Attending Unavailable Hutchins, Cynthia Referring Unavailable Kita, Chalon Primary Care Unavailable Kita, Chalon Attending Unavailable Kita, Chalon Referring Unavailable Kita, Chalon Primary Care Unavailable Landry Barber Referring Unavailable Hunter, Donato Attending Unavailable Kita, Chalon Primary Care Unavailable Darren Bernal Referring Unavailable Hunter, Donato Attending Unavailable Kita, Chalon Referring Unavailable Kita, Chalon Primary Care Unavailable Hutchins, Cynthia Attending Unavailable Kita, Chalon Referring Unavailable Kita, Chalmarie Primary Care Unavailable Grisel Timmons Attending Unavailable Kita, Chalon Primary Care Unavailable Carlton Crisostomo Referring Unavailable Carlton Crisostomo Attending Unavailable Kimberlyn East MD Primary Care Physician Rusty GARCIA, Dr. Zamudio Attending Physician Rusty GARCIA, Dr. Zamudio Referring Provider Trevin GARCIA, Dr. Judd Primary Care Physician Dr. Chriss Cruz MD Referring Provider Dr. Jimmie Ibarra MD Attending Physician Dr. Radha Kelley DO Nurse Practitioner Kita GARCIA, Kimberlyn Referring Provider Dr. Kirk Fernandez MD Attending Physician Dr. Aquiles Warren DO Attending Physician Dr. Kirk Fernandez MD Referring Provider Dr. Kirk Fernandez MD Nurse Practitioner Grisel Bajwa Attending Physician Cynthia Valera Attending Physician Allergies Allergy Classification Reported Allergen(s) Allergy Type Date of Onset Reaction(s) Facility (20 sources) Erythromycin Drug Allergy 5 [facility] (20 sources) Loratadine Drug Allergy 5 [facility] (20 sources) Homeopathic Products Propensity to adverse reactions 5 [facility] Work Phone: (20 sources) Lisinopril Drug Allergy 2 Other: See Comments [facility] Work Phone: (20 sources) amLODIPine Drug Allergy 2 Swelling [facility] Work Phone: (18 sources) Doxazosin Drug Allergy 3 Bleeding [facility] (10 sources) Doxazosin Drug Allergy 5 Diarrhea, Headache, Bleeding [facility] (10 sources) empagliflozin Drug Allergy 5 Shortness of Breath, Nausea Only [facility] (10 sources) Loratadine Propensity to adverse reactions to drug 6 Confusion [facility] (1 source) amLODIPine Drug Allergy 5 [facility] (1 source) Doxazosin Drug Allergy 5 [facility] (1 source) Loratadine Drug Allergy 5 [facility] (1 source) erythromycin base Drug allergy (disorder) 5 [facility] Medications Current Medications Medication Drug Class(es) Dates Sig (Normalized) Sig (Original) [id number] 200 actuat albuterol 0.09 mg/actuat metered dose inhaler (13 sources) beta2-Adrenergic Agonist Start: 10-16-2023 Start: 10-16-2023 take 1 puff(s) by in halation every four hours as needed Albuterol Sulfate (Ventolin Hfa) 90 mcg/actuation HFA aerosol inhaler Active 1 - 2 PUFF INHALATION EVERY 4 HOURS NEEDED October 16, 2023 1:00am amoxicillin 875 mg / clavulanate 125 mg oral tablet (1 source) Penicillin-class Antibacterial Start: 08-25-2022 End: 08-30-2022 take 1 tablet by mouth twice daily amoxicillin-clavulanic acid (AUGMENTIN) 875-125 mg per tablet Take 1 tablet by mouth twice daily for 5 days. 10 tablet 0 08/25/2022 08/30/2022 Active Comment on above: Take 1 tablet by mouth twice daily for 5 days. ARIPiprazole 2 mg oral tablet (20 sources) Atypical Antipsychotic Start: 12-09-2023 End: 07-04-2024 take 1 tablet by mouth at bedtime Start: 12-24-2020 End: 12-07-2023 take 1 tablet by mouth once daily Aripiprazole (Abilify) 2 mg tablet Discontinued 2 mg PO DAILY December 23, 2020 11:00pm December 07, 2023 9:09pm End: 12-25-2024 take 0.5 tablet by mouth once daily Aripiprazole 5 MG tablet Take 0.5 tablets by mouth daily. 12/25/2024 Discontinued Comment on above: Take 2 tablets by mo [facility] once daily. aspirin 81 mg delayed release oral tablet (1 source) Platelet Aggregation Inhibitor, Nonsteroidal Anti-inflammatory Drug Start: take 1 tablet by mouth once daily Blood-Glucose Meter (FREESTYLE LITE METER) monitoring kit (20 sources) Start: Blood-Glucose Meter (FREESTYLE LITE METER) monitoring kit 1 Each as needed. 1 Each 11/05/2020 Active Start: 11-05-2020 Blood-Glucose Meter (FREESTYLE LITE METER) monitoring kit 1 Each as needed. 1 Each 0 11/05/2020 Active Comment on above: 1 Each as needed. 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 As directed Start: 10-31-2024 Blood-Glucose Meter (Onetouch Verio Reflect) kit Active 0 .Route 1 October 31, 2024 1:00am As directed calcitriol 0.0005 mg oral capsule (7 sources) Vitamin D3 Analog Start: 05-30-2024 take 1 capsule by mouth once daily carBAMazepine 200 mg oral tablet (20 sources) Mood Stabilizer Start: 06-30-2025 take 1 tablet by mouth twice daily Start: 07-12-2023 End: 07-12-2023 take 600 mg by mouth twice daily Carbamazepine Active 600 MG PO TWICE A DAY 180 July 12, 2023 10:20am Start: 02-03-2023 End: 07-12-2023 take 800 mg by mouth twice daily Carbamazepine Discontinued 800 MG PO TWICE A DAY February 03, 2023 4:42pm July 12, 2023 11:20am Start: 05-20-2021 End: 02-03-2023 take 600 mg by mouth twice daily Carbamazepine Discontinued 600 MG PO TWICE A DAY 540 November 02, 2022 8:48am February 03, 2023 3:45pm Start: 12-10-2020 End: 06-03-2023 take 3 tablets by mouth twice daily carBAMazepine (TEGRETOL) 200 mg tablet Indications: Recurrent seizures (HCC) Take 3 tablets by mouth twice daily. 180 tablet 11 06/03/2022 Active Start: 12-30-2014 End: 06-30-2025 take 1 tablet by mouth twice daily Carbamazepine 200 mg tablet Discontinued 600 mg PO TWICE A DAY 540 3 May 07, 2024 10:43am April 21, 2025 7:28am seizures Start: 12-30-2014 End: 05-20-2021 take 800 mg by mouth twice daily Carbamazepine Discontinued 800 MG PO TWICE A DAY December 30, 2014 12:00am May 20, 2021 10:34am Start: 10-10-2013 End: 10-11-2013 take 1 tablet by mouth twice daily at mealtime Carbamazepine 200 MG tablet Discontinued 600 mg PO TWICE DAILY WITH MEALS October 10, 2013 12:00am October 11, 2013 7:22am Start: 10-10-2013 End: 10-11-2013 take 600 mg by mouth twice daily at mealtime Carbamazepine Discontinued 600 MG PO TWICE DAILY WITH MEALS October 10, 2013 1:00am October 11, 2013 8:22am take 1 tablet by [facility] twice daily carBAMazepine XR 400 MG Tab SR 12 HR Indications: Liver lesion , Malignant neoplasm of colon, unspecified part of colon Take 200 mg by mouth 2 times daily. Active Comment on above: Take 3 tablets by [facility] twice daily. cholecalciferol 0.025 mg ora l capsule (20 sources) Vitamin D Start: 10-10-2013 Start: 10-10-2013 take 1000 [IU] by [facility] once daily Cholecalciferol (Vitamin D3) Active 1000 UNIT PO DAILY October 10, 2013 1:00am Start: 08-09-2013 take 1 capsule by [facility] every other day Cholecalciferol, Vitamin D3, 25 mcg (1,000 unit) cap Take 1 capsule by mouth every other day 08/09/2013 Active Comment on above: Take 1 capsule by [facility] every other day sugar-free cholestyramine resin 4000 mg powder for oral suspension (3 sources) Bile Acid Sequestrant Start: 05-07-20 ciprofloxacin 500 mg oral tablet (7 sources) Quinolone Antimicrobial Start: 02-01-20 End: 02-11-20 ciprofloxacin HCl (CIPRO) 500 mg tablet Take 1 tablet by mouth twice daily for 10 days. FOR 7 DAYS. 20 tablet 0 01/31/2022 02/10/2022 Active Comment on above: Take 1 tablet by [facility] twice daily for 10 days. FOR 7 DAYS. cloNIDine hydrochloride 0.1 mg oral tablet (20 sources) Central alpha-2 Adrenergic Agonist Start: 01-28-20 End: 01-28-20 take 0.1 mg by mouth once 0.1 mg, Oral, ONCE, 1 dose, On Mon01/27/25 at 1615 Start: 01-27-2025 1 dose, Starti ng on Mon01/27/25 at 1509, Until Mon01/27/25 at 1541, Created by cabinet override, Post-op/Post-Proc Start: 06-12-2024 take 1 tablet by [facility] three times daily clopidogrel 75 mg oral tablet (2 sources) P2Y12 Platelet Inhibitor Start: 06-04-2025 take 1 tablet by mouth once daily dimenhyDRINATE 50 mg oral tablet (20 sources) take 1 tablet by mouth every twenty-four hours as needed dimenhyDRINATE (DRAMAMINE) 50 mg tablet Take 50 mg by mouth at bedtime as needed. Active Comment on above: Take 50 mg by mouth at bedtime as needed. docosahexanoic acid/epa (FISH OIL ORAL) (20 sources) docosahexanoic acid/epa (FISH OIL ORAL) Take by mouth once daily. Active docosahexanoic a alden/epa (FISH OIL ORAL) Take by mouth once daily. 0 Active Comment on above: Take by mouth once d aily. empagliflozin 25 mg oral tablet (1 source) Sodium-Glucose Cotransporter 2 Inhibitor Start: 023 take 1 tablet by mouth once daily Empagliflozin (Jardiance) 25 mg tablet Active 25 MG PO DAILY May 10, 2023 11:00pm ergocalciferol 1.25 mg oral capsule (7 sources) Provitamin D2 Compound Start: 024 fenofibrate 145 mg oral tablet (2 sources) Peroxisome Proliferator Receptor alpha Agonist Start: 023 take 145 mg by mouth once daily Fenofibrate Nanocrystallized Active 145 MG PO DAILY February 02, 2023 11:00pm ferrous sulfate (20 sources) take 1 tablet by mouth every week FERROUS SULFATE, DRIED (IRON, DRIED, ORAL) Take 1 tablet by mouth one time a week. Active take 1 tablet by mouth every wee k FERROUS SULFATE, DRIED (IRON, DRIED, ORAL) Take 1 tablet by mouth one time a week. 0 Active Comment on above: [facility]. Fish Oil-Dha-Epa (19 sources) Start: 11-14-2020 Fish Oil-Dha-E pa Active 1 EACH PO DAILY November 14, 2020 12:44pm Start: 11-14-2020 Fish Oil-Dha-E pa Active 1 EACH PO DAILY November 13, 2020 11:00pm Start: 11-14-2020 Fish Oil-Dha-E pa Active 1 EACH PO DAILY November 14, 2020 12:00am Fish Oil-Dha-Epa 1 EACH caps ule (7 sources) Start: 11-14-2020 take 1 capsule by mo [facility] once daily Start: 11-14-2020 take 1 capsule by mo [facility] once daily Start: 11-14-2020 take 1 capsule by mo [facility] once daily Fish Oil-Dha-Epa 1 EACH capsule Active 1 NMA PO DAILY November 14, 2020 12:00am supplement Start: 11-14-2020 take 1 capsule by mo [facility] once daily Fish Oil-Dha-Epa 1 EACH capsule Active 1 NMA PO DAILY November 14, 2020 12:00am gabapentin 300 mg oral capsule (20 sources) Anti-epileptic Agent Start: 06-30-2025 take 1 capsule by mouth twice daily Start: 04-21-2025 End: 06-30-2025 take 1 capsule by mouth twice daily Gabapentin 300 mg capsule Discontinued 300 mg PO TWICE A DAY 60 3 April 20, 2025 11:00pm June 30, 2025 10:52am Start: 05-07-2024 End: 04-21-2025 take 1 capsule by mouth three times daily Gabapentin 100 mg capsule Discontinued 100 mg PO THREE TIMES A DAY 270 July 22, 2024 2:10pm April 21, 2025 7:27am nerve pain Start: 10-26-2021 End: 03-24-2022 take 1 capsule by mouth three times daily gabapentin (NEURONTIN) 100 mg capsule take 1 capsule by mouth three times a day 90 capsule 1 12/24/2021 Active Comment on above: Take 1 capsule by [facility] three times daily for 30 days. take 1 capsule by [facility] three times a day gemfibrozil 600 mg oral tablet (20 sources) Peroxisome Proliferator Receptor alpha Agonist Start: 12-08-2023 take 1 tablet by mouth twice daily Start: 10-13-2021 End: 10-06-2023 take 1 tablet by mouth twice daily gemfibrozil (LOPID) 600 mg tablet Take 1 tablet by mouth twice daily. 180 tablet 3 10/06/2022 Active Comment on above: Take 1 tablet by [facility] twice daily. hydrALAZINE hydrochloride 50 mg oral tablet (20 sources) Arteriolar Vasodilator Start: 06-04-2025 take 1 tablet by mouth three times daily Start: 01-27-2025 End: 01-27-2025 10 mg, Intravenous, ONCE, 1 dose, On Mon01/27/25 at 1200 Start: 07-10-2024 End: 12-18-2024 take 1 tablet by mouth twice daily Hydralazine 25 mg Tablet Discontinued 25 mg PO TWICE A DAY 60 30 0 July 10, 2024 12:00am December 18, 2024 9:39am Start: 12-09-2023 End: 05-29-2024 take 1 tablet by mouth three times daily Hydralazine 50 mg Tablet Discontinued 50 mg PO THREE TIMES A DAY 90 0 December 08, 2023 11:00pm May 29, 2024 12:45pm 3 ml insulin glargine 100 un t/ml pen injector (20 sources) Insulin Analog Start: 12-18-2024 Start: 07-19-2024 End: 12-18-2024 Insulin Glargine (Lantus Trevin ostar U-100 Insulin) 100 unit/mL (3 mL) insulin pen Discontinued 20 U SC TWICE A DAY July 19, 2024 12:00am December 18, 2024 10:08am diabetes Start: 03-12-2024 End: 07-19-2024 Insulin Glargine (Lantus Trevin ostar U-100 Insulin) 100 unit/mL (3 mL) insulin pen Discontinued 20 U SC DAILY 18 March 12, 2024 11:00pm July 19, 2024 2:21pm 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 90 mL 3 06/17/2022 Active Start: 10-29-2021 End: 11-24-2021 inject 40 [IU] by subcutaneous injection in the morning, then inject 45 [IU] by subcutaneous injection in the evening insulin glargine (LANTUS SOLOSTAR U-100 INSULIN) 100 unit/mL (3 mL) Indications: Type 1 diabetes mellitus with diabetic polyneuropathy (HCC) , Uncontrolled type 1 diabetes mellitus with diabetic nephropathy, with long-term current use of insulin Inject subcutaneously 40 units AM and 45 units PM 75 mL 3 10/29/2021 11/24/2021 Discontinued Start: 05-20-2021 Insulin Glargi ne (Basaglar Karinapen U-100 Insulin) 100 unit/mL (3 mL) insulin pen Active 25 UNIT SC .QAM & HS May 20, 2021 10:12am Start: 05-20-2021 End: 02-03-2023 Insulin Glargine (Basaglar K friedaen U-100 Insulin) 100 unit/mL (3 mL) insulin pen Discontinued 45 U SC .QAM & HS May 19, 2021 11:00pm February 03, 2023 3:45pm Start: 06-19-2020 End: 05-20-2021 Insulin Glargine 100 UNITS/M L insulin pen Discontinued 120 U SC AT BEDTIME June 18, 2020 11:00pm May 20, 2021 9:11am Start: 06-19-2020 End: 05-20-2021 Insulin Glargine 100 UNITS/M L insulin pen Discontinued 80 U SC WITH BREAKFAST June 18, 2020 11:00pm May 20, 2021 9:11am Start: 06-19-2020 End: 05-20-2021 Insulin Glargine Discontinue d 120 UNITS SC AT BEDTIME June 19, 2020 12:00am May 20, 2021 10:11am Start: 06-19-2020 End: 05-20-2021 Insulin Glargine Discontinue d 80 UNITS SC WITH BREAKFAST June 19, 2020 12:00am May 20, 2021 10:11am Start: 10-05-2017 End: 2018 Insulin Glargine (Basaglar K wikpen U-100 Insulin) 100 unit/mL (3 mL) insulin pen Discontinued 0 SC AT BEDTIME 60 11 2018 8:23am 2018 9:44am Inject 80 units in am and 110 units in pm SC Start: 08-03-2017 End: 10-05-2017 Insulin Glargine (Lantus U-1 00 Insulin) 100 unit/mL solution Discontinued 75 U SC TWICE A DAY August 03, 2017 12:00am October 05, 2017 1:25pm Type 2 diabetes mellitus without complications Insulin Glargine (LANTUS SC) Indications: Liver lesion , Malignant neoplasm of colon, unspecified part of colon Inject 42 Units under the skin 2 times daily. 40 units AM, 30 units at Bedtime Active Comment on above: Inject subcutaneously 40 units AM and 45 units PM Inject 48 Units subc utaneously twice daily. Inject subcutaneously 40 units AM and 45 units PM Inject 48 Units subc utaneously twice daily. Inject 38 Units subc utaneously twice daily. Inject 38 Units subc utaneously two times a day. Insulin Lispro, Human, (HUMALOG SC) (10 sources) inject 32 [IU] by subcutaneous injection at bedtime as needed Insulin Lispro, Human, (HUMALOG SC) Indications: Liver lesion , Malignant neoplasm of colon, unspecified part of colon Inject 32 Units under the skin before meals & at bedtime as needed. 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) Use 8 swabs daily TO CHECK BLOOD SUGAR AND FOR INSULIN INJECTIONS 800 Each 06/23/2023 Active Start: 02-07-2019 End: 06-17-2022 alcohol swabs Indications: T ype 1 diabetes mellitus with nephropathy (HCC) , Type 1 diabetes mellitus with diabetic polyneuropathy (HCC) , Type 1 diabetes mellitus with stage 3 chronic kidney disease, unspecified whether stage 3a or 3b CKD (HCC) , 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) Use 8 swabs daily TO CHECK BLOOD SUGAR AND FOR INSULIN INJECTIONS 800 Each 3 06/17/2022 Active Start: 08-17-2017 End: 04-17-2018 Alcohol Swabs (Alcohol Wipes ) pads, medicated Discontinued 4 NMA TOPICAL .daily 100 11 April 17, 2018 12:40pm April 17, 2018 12:43pm Type 2 diabetes mellitus with hyperglycemia Start: 08-17-2017 End: 04-17-2018 Alcohol Swabs (Alcohol Wipes ) pads, medicated Discontinued 4 PAD TOPICAL .daily 100 April 17, 2018 12:40pm April 17, 2018 12:43pm Comment on above: Use 8 swabs daily TO CHECK BLOOD SUGAR AND FOR INSULIN INJECTIONS losartan potassium 50 mg oral tablet (17 sources) Angiotensin 2 Receptor Mariel Start: 07-10-2024 take 1 tablet by mouth once daily take 1 tablet by mouth once shalonda y Losartan 25 MG tablet Take 1 tablet by mouth daily. Active Multiple Vitamins-Minerals ( EQ COMPLETE MULTIVITAMIN-ADULT PO) (10 sources) Multiple Vitamin s-Minerals (EQ COMPLETE MULTIVITAMIN-ADULT PO) Indications: Liver lesion , Malignant neoplasm of colon, unspecified part of colon take by mouth daily. Active Multivitamin capsule (20 sources) take 1 capsule by mouth once daily Multivitamin capsule Take 1 capsule by mouth once daily. Active take 1 capsule by mouth once bhargavi ly Multivitamin capsule Take 1 capsule by mouth once daily. 0 Active Comment on above: Take 1 capsule by mo [facility] once daily. Multivitamin With Folic Acid (19 sources) Start: 10-21-2014 take 1 tablet by mouth once daily Multivitamin With Folic Acid Active 1 TABLET PO DAILY October 21, 2014 11:51am Start: 10-21-2014 take 1 tablet by [facility] once daily Multivitamin With Folic Acid Active 1 TABLET PO DAILY October 21, 2014 12:00am Start: 10-21-2014 take 1 tablet by [facility] once daily Multivitamin With Folic Acid Active 1 TABLET PO DAILY October 21, 2014 1:00am Multivitamin With Folic Acid 1 TABLET tablet (7 sources) Start: 10-21-2014 take 1 tablet by [facility]re[facility] th once daily Start: 10-21-2014 take 1 tablet by [facility] once daily Start: 10-21-2014 take 1 tablet by [facility] th once daily Multivitamin With Folic Acid 1 TABLET tablet Active 1 {tbl} PO DAILY October 21, 2014 1:00am supplement Start: 10-21-2014 take 1 tablet by nere[facility] th once daily Multivitamin With Folic Acid 1 TABLET tablet Active 1 {tbl} PO DAILY October 21, 2014 1:00am omega 3-gou-xxd-fish oil 300-400-1,000 mg cap (20 sources) Start: 10-07-2019 take 300-400 capsules by mouth once daily omega 9-dha-mgv-fish oil 300-400-1,000 mg cap Take 1 capsule by mouth once daily. 30 capsule 11 10/07/2019 Active Comment on above: Take 1 capsule by mo [facility] once daily. predniSONE 20 mg oral tablet (1 source) Start: 08-22-2022 End: 08-27-2022 take 2 tablets by mouth once daily predniSONE (DELTASONE) 20 mg tablet Take 2 tablets by mouth once daily for 5 days. 10 tablet 0 08/22/2022 08/27/2022 Active Comment on above: Take 2 tablets by mo [facility] once daily for 5 days. pyridoxine (10 sources) take 10 mg by mouth once daily Pyridoxine HCl (VITAMIN B-6 PO) Indications: Liver lesion , Malignant neoplasm of colon, unspecified part of colon take 10 mg by mouth daily. Active rosuvastatin calcium 40 mg oral tablet (20 sources) HMG-CoA Reductase Inhibitor Start: 11-24-2016 End: 10-06-2022 take 1 tablet by mouth at bedtime take 2 tablets by mouth once bhargavi ly rosuvastatin 20 MG Tab Indications: Liver lesion , Malignant neoplasm of colon, unspecified part of colon Take 2 tablets by mouth daily. Active Comment on above: Take 1 tablet by [facility] once daily. sertraline 100 mg oral tablet (20 sources) Serotonin Reuptake Inhibitor Start: 014 End: 023 take 1 tablet by mouth at bedtime Comment on above: Take 1 tablet by [facility] once daily. sildenafil 20 mg oral tablet (20 sources) Phosphodiesterase 5 Inhibitor Start: 021 sildenafil (REVATIO) 20 mg tablet Indications: Erectile dysfunction, unspecified erectile dysfunction type 2 to 5 tabs a day prn. 30 tablet 5 09/17/2020 Active Comment on above: 2 to 5 tabs a day pr n. sucroferric oxyhydroxide 500 mg chewable tablet (4 sources) Start: 025 take 1 tablet by mouth before mealtime traZODone hydrochloride 50 mg oral tablet (6 sources) Serotonin Reuptake Inhibitor Start: 025 take 1 tablet by mouth at bedtime as needed Start: 04-21-2025 End: 06-30-2025 take 1 tablet by mouth at bedtime as needed Trazodone 50 mg tablet Discontinued 50 mg PO AT BEDTIME as needed for insomnia 24 11April 20, 2025 11:00pm June 30, 2025 10:53am vitamin e 450 mg oral capsule (20 sources) take 1 capsule by mouth once daily VITAMIN E, DL,TOCOPHERYL ACET, (VITAMIN E, DL, ACETATE,) 1,000 unit cap Take 1 capsule by mouth once daily. Active Comment on above: Take 1 capsule by mo [facility] once daily. Completed/Discontinued Medications Medication Drug Class(es) Dates Sig (Normalized) Sig (Original) acetaminophen 325 mg oral tablet (7 sources) End: 12-25-2024 acetaminophen 325 MG tablet Indications: Liver lesion , Malignant neoplasm of colon, unspecified part of colon Take 1 tablet by mouth as needed. 12/25/2024 Discontinued acetaminophen 325 mg / HYDROcodone bitartrate 5 mg oral tablet (20 sources) Opioid Agonist Start: 01-14-2023 End: 01-31-2023 Hydrocodone-Acetamin ophen 5-325 mg tablet Discontinued 1 {tbl} PO EVERY 6 HOURS NEEDED as needed for Pain 12 3 January 14, 2023 January 31, 2023 9:58am Postoperative pain Toothache Other acute postprocedural pain Other specified disorders of teeth and supporting structures Start: 01-14-2023 End: 01-31-2023 take 1 tablet by mouth every six hours as needed Hydrocodone-Acetaminophen Discontinued 1 TABLET PO EVERY 6 HOURS NEEDED 07 30January 14, 2023 January 31, 2023 10:58am Start: 01-28-2022 End: 02-04-2022 take 1 tablet by mouth every eight hours as needed for pain HYDROcodone-acetaminophen (NORCO) 5-325 mg per tablet Indications: Open nondisplaced fracture of proximal phalanx of lesser toe of left foot, initial encounter Take 1 tablet by mouth every 8 hours as needed for pain for up to 7 days. 21 tablet 0 01/28/2022 02/04/2022 Start: 01-26-2022 End: 11-02-2022 Hydrocodone-Acetaminophen 5- 325 mg tablet Discontinued 1 {tbl} PO EVERY 6 HOURS as needed for pain 12 3 0 January 26, 2022 November 02, 2022 2:38pm Closed fracture of phalanx of left fourth toe Start: 01-26-2022 End: 11-02-2022 take 1 tablet by mouth every six hours Hydrocodone-Acetaminophen Discontinued 1 TABLET PO EVERY 6 HOURS 12 3 January 26, 2022 November 02, 2022 2:38pm Start: 12-13-2020 End: 12-16-2020 Hydrocodone-Acetaminophen 1 TABLET tablet Discontinued 1 {tbl} PO EVERY 6 HOURS NEEDED as needed for Pain 10 3 0 December 13, 2020 December 14, 2020 11:00pm December 15, 2020 11:02pm Trigeminal neuralgia Trigeminal neuralgia Start: 12-13-2020 End: 12-16-2020 take 1 tablet by mouth every six hours as needed Hydrocodone-Acetaminophen Discontinued 1 TABLET PO EVERY 6 HOURS NEEDED 10 3 December 13, 2020 December 15, 2020 11:02pm Comment on above: Take 1 tablet by nereida every 8 hours as needed for pain for up to 7 days. amLODIPine 10 mg oral tablet (20 sources) Dihydropyridine Calcium Channel Mariel Start: 12-09-19 End: 05-29-20 take 1 tablet by mouth once daily Amlodipine 10 mg Tablet Discontinued 10 mg PO DAILY 30 0 December 08, 2023 11:00pm May 29, 2024 12:44pm Start: 11-29-2021 End: 11-29-2022 take 1 tablet by mouth once daily amLODIPine (NORVASC) 5 mg tablet Indications: Essential hypertension Take 1 tablet by mouth once daily. 30 tablet 11 11/29/2021 11/29/2022 Active Start: 11-10-2021 End: 11-29-2021 take 1 tablet by mouth once daily amLODIPine (NORVASC) 10 mg tablet Indications: Essential hypertension Take 1 tablet by mouth once daily. 30 tablet 5 11/27/2021 11/29/2021 Discontinued Start: 04-15-2021 End: 05-20-2021 take 1 tablet by mouth once daily Amlodipine 2.5 mg tablet Discontinued 2.5 mg PO DAILY April 14, 2021 11:00pm May 20, 2021 9:18am Comment on above: Take 1 tablet by nere[facility] th once daily. ascorbic acid 500 mg oral tablet (20 sources) Vitamin C Start: 07-18-2014 End: 05-20-2021 take 1 tablet by mouth once daily Ascorbic Acid (Vitamin C) 500 MG tablet Discontinued 500 mg PO DAILY@0800 July 18, 2014 12:00am May 20, 2021 9:18am Start: 08-09-2013 take 1 tablet by nere[facility] th once daily Ascorbic Acid 1,000 mg tablet Take 1 tablet by mouth once daily. 0 08/09/2013 Active take 1 tablet by nereida th once daily ascorbic acid 500 MG Tab Indications: Liver lesion , Malignant neoplasm of colon, unspecified part of colon Take 1 tablet by mouth daily. Active Comment on above: Take 1 tablet by nere[facility] once daily. atenolol 50 mg oral tablet (20 sources) beta-Adrenergic Mariel Start: 02-14-2018 End: 12-07-2023 take 1 tablet by mouth twice daily Atenolol 50 mg tablet Discontinued 50 mg PO TWICE A DAY February 14, 2018 11:33am December 07, 2023 10:31am Start: 10-10-2013 End: 02-14-2018 take 2 tablets by mouth twice daily Atenolol 50 MG tablet Discontinued 100 mg PO TWICE A DAY October 10, 2013 12:00am February 14, 2018 11:33am Start: 10-10-2013 End: 02-14-2018 take 100 mg by mouth twice daily Atenolol Discontinued 100 MG PO TWICE A DAY October 10, 2013 1:00am February 14, 2018 12:33pm End: 12-25-2024 take 1 tablet by mouth twice daily atenolol 100 MG Tab Indications: Liver lesion , Malignant neoplasm of colon, unspecified part of colon Take 1 tablet by mouth 2 times daily. 12/25/2024 Discontinued Comment on above: Take 1 tablet by nereida twice daily. B12 (20 sources) Start: 10-10-2013 End: 08-03-2017 take 500 ug by mouth once daily B12 Discontinued 500 MCG PO DAILY October 10, 2013 10:44am August 03, 2017 12:40pm Start: 10-10-2013 End: 08-03-2017 take 500 ug by mouth once daily B12 Discontinued 500 ug PO DAILY October 10, 2013 12:00am August 03, 2017 11:40am Start: 10-10-2013 End: 08-03-2017 take 500 ug by mouth once daily B12 Discontinued 500 ug PO DAILY October 10, 2013 1:00am August 03, 2017 12:40pm Start: 10-10-2013 End: 08-03-2017 take 500 ug by mouth once daily B12 Discontinued 500 MCG PO DAILY October 10, 2013 12:00am August 03, 2017 11:40am Start: 10-10-2013 End: 08-03-2017 take 500 ug by mouth once daily B12 Discontinued 500 MCG PO DAILY October 10, 2013 1:00am August 03, 2017 12:40pm benzonatate 100 mg oral capsule (20 sources) Non-narcotic Antitussive Start: 12-09-2023 End: 12-25-2023 take 2 capsules by mouth three times daily as needed for cough Benzonatate 100 mg Capsule Discontinued 200 mg PO 3 TIMES DAILY NEEDED as needed for cough 0 0 December 08, 2023 11:00pm December 25, 2023 2:16pm Start: 12-09-2023 take 200 mg by mouth three times daily as needed Benzonatate Active 200 MG PO 3 TIMES DAILY NEEDED 0 December 09, 2023 12:00am Start: 10-16-2023 End: 12-07-2023 take 1 capsule by mouth three times daily as needed for cough Benzonatate 200 mg capsule Discontinued 200 mg PO THREE TIMES A DAY as needed for cough 20 0 October 16, 2023 12:00am December 07, 2023 9:08pm Start: 08-22-2022 End: 08-29-2022 take 1 capsule by mouth every eight hours as needed benzonatate (TESSALON PERLES) 100 mg capsule Take 1 capsule by mouth three times daily as needed for cough for up to 7 days. 21 capsule 0 08/22/2022 08/29/2022 Active Comment on above: Take 1 capsule by mo [facility] three times daily as needed for cough for up to 7 days. 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), managed as type 1 Other specified diabetes mellitus without complications As directed Start: 12-30-2024 Blood-Glucose Meter (True Metrix Air Glucose Meter) kit Active 0 .Route 1 December 30, 2024 12:00am As directed budesonide 3 mg delayed release oral capsule (7 sources) Corticosteroid Start: 01-12-2024 End: 03-13-2024 take 3 capsules by mouth once daily Budesonide 3 mg capsule,delayed,extend.release Discontinued 9 mg PO DAILY 90 January 11, 2024 11:00pm March 13, 2024 10:53pm cephalexin 500 mg oral capsule (20 sources) Cephalosporin Antibacterial Start: 02-13-2022 End: 11-02-2022 take 1 capsule by mouth every eight hours Cephalexin 500 mg capsule Discontinued 500 mg PO Q8H February 13, 2022 1:02pm November 02, 2022 2:38pm Start: 01-28-2022 End: 03-30-2022 take 1 capsule by mouth three times daily cephALEXin (KEFLEX) 500 mg capsule Take 1 capsule by mouth three times daily. 21 capsule 0 02/09/2022 03/30/2022 Discontinued (Other) Start: 01-26-2022 End: 02-13-2022 take 1 capsule by mouth every six hours Cephalexin 500 mg capsule Discontinued 500 mg PO EVERY 6 HOURS 40 0 January 25, 2022 11:00pm February 13, 2022 1:02pm Comment on above: Take 1 capsule by mo [facility] three times daily. Dextrose 50% injection 7.5-25 g (1 source) Start: 01-27-2025 End: 01-27-2025 7.5-25 g, Intravenous, ADMINISTER DIRECTED, Starting on Mon01/27/25 at 1118, Until Mon01/27/25 at 1837, Blood glucose doxazosin 2 mg oral tablet (20 sources) alpha-Adrenergic Mariel Start: 02-01-2023 End: 05-28-2024 take 1 tablet by mouth once daily Doxazosin 2 mg tablet Discontinued 2 mg PO DAILY 30 May 24, 2023 11:00pm December 07, 2023 10:31am Start: 12-29-2022 End: 12-29-2023 take 1 tablet by mouth once daily doxazosin (CARDURA) 1 mg tablet Indications: Stage 3a chronic kidney disease (HCC) Take 1 tablet by mouth once daily. 90 tablet 3 12/29/2022 02/01/2023 Discontinued Start: 05-04-2022 End: 05-04-2023 take 1 tablet by mouth once daily Doxazosin 4 mg tablet Discontinued 4 mg PO DAILY May 09, 2022 11:00pm November 26, 2022 12:36pm Start: 11-27-2021 End: 11-27-2022 take 1 tablet by mouth once daily doxazosin (CARDURA) 2 mg tablet Indications: Essential hypertension , Primary hypertension Take 1 tablet by mouth once daily. 30 tablet 11 11/27/2021 05/04/2022 Discontinued Start: 11-24-2021 End: 11-27-2021 take 1 tablet by mouth once daily doxazosin (CARDURA) 1 mg tablet Indications: Primary hypertension Take 1 tablet by mouth once daily. 30 tablet 5 11/24/2021 11/27/2021 Discontinued Comment on above: Take 1 tablet by [facility] once daily. ferrous fumarate 18 mg oral tablet (7 sources) End: 12-25-2024 Ferrous Fumarate (IRON) 18 MG Tab CR Indications: Liver lesion , Malignant neoplasm of colon, unspecified part of colon take by mouth daily. 12/25/2024 Discontinued furosemide 40 mg oral tablet (20 sources) Loop Diuretic Start: 06-07-2024 End: 12-18-2024 take 1 tablet by mouth once daily Furosemide 40 mg tablet Discontinued 40 mg PO DAILY June 06, 2024 11:00pm December 18, 2024 9:38am diuretic Start: 12-18-2023 End: 12-25-2023 take 1 tablet by mouth once daily Furosemide 20 mg tablet Discontinued 20 mg PO DAILY December 17, 2023 11:00pm December 25, 2023 2:17pm Start: 04-27-2023 End: 12-09-2023 take 1 tablet by mouth every twelve hours Furosemide 20 mg tablet Discontinued 10 mg PO Q12H April 26, 2023 11:00pm December 09, 2023 10:00am water pill Start: 04-27-2023 End: 12-09-2023 take 10 mg by mouth every twelve hours Furosemide 20 mg tablet Discontinued 10 mg PO Q12H April 27, 2023 12:00am December 09, 2023 11:00am Start: 04-27-2023 End: 12-09-2023 take 10 mg by mouth every twelve hours Furosemide Discontinued 10 MG PO Q12H April 27, 2023 12:00am December 09, 2023 11:00am Start: 04-27-2023 take 20 mg by mouth once daily Furosemide Active 20 MG PO DAILY April 27, 2023 12:00am Start: 11-02-2022 End: 11-26-2022 take 1 tablet by mouth once daily Furosemide 20 mg tablet Discontinued 20 mg PO DAILY November 02, 2022 12:00am November 26, 2022 12:40pm End: 12-25-2024 take 0.5 tablet by mouth twice daily furOSEmide 20 MG tablet Take 0.5 tablets by mouth 2 times daily. 12/25/2024 Discontinued hydroCHLOROthiazide 50 mg oral tablet (7 sources) Thiazide Diuretic Start: 03-06-2024 End: 05-29-2024 take 1 tablet by mouth once daily Hydrochlorothiazide 50 mg tablet Discontinued 50 mg PO DAILY March 05, 2024 11:00pm May 29, 2024 12:45pm 3 ml insulin lispro 100 unt/ml pen injector (20 sources) Insulin Analog Start: 02-03-2023 End: 12-11-2024 Insulin Lispro (Admelog Solostar U-100 Insulin) 100 unit/mL insulin pen Discontinued 18 U SC THREE TIMES A DAY 60 1 March 12, 2024 3:21pm December 11, 2024 7:51am blood glucose Start: 02-03-2023 Insulin Lispro (Admelog Solostar U-100 Insulin) 100 unit/mL insulin pen Active 30 UNIT SC THREE TIMES A DAY February 03, 2023 4:44pm Start: 02-03-2023 Insulin Lispro (Admelog Solostar U-100 Insulin) 100 unit/mL insulin pen Active 30 UNIT SC THREE TIMES A DAY February 03, 2023 4:44pm 18 units @AM,Lunch, Dinner, and HS with sliding scale. Start: 02-03-2023 Insulin Lispro (Admelog Solostar U-100 Insulin) 100 unit/mL insulin pen Active 18 UNIT SC .QID February 03, 2023 3:44pm 18 units @AM,Lunch, Dinner, and HS with sliding scale. 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) Inject subcutaneously 18 units TID meals plus up to units daily 70 units daily 75 mL 06/23/2023 Active Start: 10-29-2021 End: 10-06-2022 insulin lispro (ADMELOG SOLO STAR U-100 INSULIN) 100 unit/mL Indications: Type 1 diabetes mellitus with diabetic polyneuropathy (HCC) , 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) , Type 1 diabetes mellitus with stage 3 chronic kidney disease, unspecified whether stage 3a or 3b CKD (HCC) , 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 Start: 05-20-2021 End: 02-03-2023 Insulin Lispro (Admelog Solo star U-100 Insulin) 100 unit/mL insulin pen Discontinued 36 U SC .QID May 19, 2021 11:00pm February 03, 2023 3:45pm 18 units @AM,Lunch, Dinner, and HS with sliding scale. Start: 10-30-2018 End: 05-20-2021 Insulin Lispro (Humalog Kwik pen (U-) 100 UNIT/ML insulin pen Discontinued 42 U SC .COMPLEX Protocol: Custom Sliding Scale Condition: mg/dl range Dose/Route: Number of Units Condition: 151-200 Dose/Route: 2 Condition: 201-250 Dose/Route: 4 Condition: 251-300 Dose/Route: 6 Condition: 301-350 Dose/Route: 8 Condition: 351-400 Dose/Route: 10 Condition: 401 and higher Dose/Route: call October 30, 2018 6:59am May 20, 2021 9:11am 42 units breakfast and dinner; 35 units lunch and bedtime plus sliding scale Please contact the information source for Protocol details. Start: 10-05-2017 End: 10-30-2018 Insulin Lispro (Humalog Kwik pen (U-) 100 unit/mL insulin pen Discontinued 33 U SC THREE TIMES A DAY 45 11 November 13, 2017 11:00am October 30, 2018 6:59am Type 2 diabetes mellitus without complications inject 33 units each meal and use sliding scale up to 140 units daily Start: 08-03-2017 End: 10-05-2017 Insulin Lispro (Humalog Kwik pen Insulin) 100 unit/mL insulin pen Discontinued 30 U SC THREE TIMES A DAY August 03, 2017 12:00am October 05, 2017 1:28pm Type 2 diabetes mellitus without complications Start: 10-10-2014 End: 08-03-2017 inject 3 [IU] by subcutaneous injection four times daily Insulin Lispro 100 UNIT/ML solution Discontinued 3 U SQ 4 TIMES DAILY October 10, 2014 12:00am August 03, 2017 11:39am Comment on above: Inject subcutaneousl y 35 at breakfast, 40 units lunch, 45 units dinner plus SS up to 140 units daily Inject subcutaneousl y 40 at breakfast, 45 units lunch, 45 units dinner plus SS up to 140 units daily Inject subcutaneousl y 18 units TID meals plus up to units daily 70 units daily iohexol (OMNIPAQUE) 350 MG/ML injection 1-171 mL (2 sources) Start: 04-23-2025 End: 04-23-2025 1-171 mL, Intravenous, ONCE, 1 dose, On Mon04/23/25 at 1415, Extravasation Risk, CT Procedure Start: 12-11-2024 End: 12-11-2024 1-171 mL, Intravenous, ONCE, 1 dose, On Mon12/11/24 at 0745, Extravasation Risk, CT Procedure Iohexol (OMNIPAQUE) 9 MG/ML Bottle 1,000 mL (1 source) Start: 04-23-2025 End: 04-23-2025 take 1 dose by mouth once 1,000 mL, Oral, ONCE, 1 dose, On Mon04/23/25 at 1315, For administration to inpatients, to be given by RN on inpatient nursing unit., CT Procedure Lantus SoloStar Pen (20 sources) Start: 10-21-2014 End: 08-03-2017 inject 40 [IU] by subcutaneous injection at lunch Lantus SoloStar Pen Discontinued 40 UNITS SQ WITH LUNCH October 21, 2014 12:10pm August 03, 2017 12:37pm Start: 10-21-2014 End: 08-03-2017 inject 40 [IU] by subcutaneous injection at lunch Lantus SoloStar Pen Discontinued 40 U SQ WITH LUNCH October 21, 2014 12:00am August 03, 2017 11:37am Start: 10-21-2014 End: 08-03-2017 inject 40 [IU] by subcutaneous injection at lunch Lantus SoloStar Pen Discontinued 40 U SQ WITH LUNCH October 21, 2014 1:00am August 03, 2017 12:37pm Start: 10-21-2014 End: 08-03-2017 inject 40 [IU] by subcutaneous injection at lunch Lantus SoloStar Pen Discontinued 40 UNITS SQ WITH LUNCH October 21, 2014 12:00am August 03, 2017 11:37am Start: 10-21-2014 End: 08-03-2017 inject 40 [IU] by subcutaneous injection at lunch Lantus SoloStar Pen Discontinued 40 UNITS SQ WITH LUNCH October 21, 2014 1:00am August 03, 2017 12:37pm levoFLOXacin 500 mg oral tablet (20 sources) Quinolone Antimicrobial Start: 02-13-2022 End: 11-02-2022 Levofloxacin 500 mg tablet Discontinued 1 {tbl} PO DAILY February 12, 2022 11:00pm November 02, 2022 2:38pm Start: 02-10-2022 End: 11-02-2022 take 1 tablet by mouth once daily Levofloxacin Discontinued 1 TABLET PO DAILY February 12, 2022 11:00pm November 02, 2022 2:38pm Comment on above: Take 1 tablet by nereida th once daily for 14 days. FOR 7 DAYS. lisinopril 10 mg oral tablet (20 sources) Angiotensin Converting Enzyme Inhibitor Start: End: take 1 tablet by mouth at bedtime Lisinopril 40 mg tablet Discontinued 40 mg PO AT BEDTIME December 17, 2023 11:00pm December 25, 2023 2:18pm Start: 12-18-2023 End: 05-29-2024 take 1 tablet by mouth once daily Lisinopril 10 mg tablet Discontinued 10 mg PO DAILY December 17, 2023 11:00pm May 29, 2024 12:45pm AM Start: 12-07-2023 End: 12-09-2023 take 1 tablet by mouth once daily in the morning Lisinopril 10 mg tablet Discontinued 10 mg PO .QA December 06, 2023 11:00pm December 09, 2023 10:00am blood pressure Start: 11-12-2021 End: 07-08-2023 take 1 tablet by mouth once daily lisinopril (ZESTRIL, PRINIVIL) 10 mg tablet Take 1 tablet by mouth once daily. 30 tablet 11 07/08/2022 12/29/2022 Discontinued Start: 05-20-2021 End: 12-09-2023 take 1 tablet by mouth at bedtime Lisinopril 40 mg tablet Discontinued 40 mg PO AT BEDTIME May 19, 2021 11:00pm December 09, 2023 10:00am blood pressure Start: 05-09-2019 End: 12-25-2024 take 2 tablets by mouth once daily Lisinopril 20 MG tablet Discontinued 40 mg PO DAILY May 08, 2019 11:00pm May 20, 2021 9:05am Start: 05-09-2019 End: 05-20-2021 take 40 mg by mouth once daily Lisinopril Discontinued 40 MG PO DAILY May 09, 2019 12:00am May 20, 2021 10:05am End: 12-25-2024 take 2 tablets by mouth twice daily lisinopril 5 MG Tab Indications: Liver lesion , Malignant neoplasm of colon, unspecified part of colon Take 2 tablets by mouth 2 times daily. 12/25/2024 Discontinued Comment on above: Take 1 tablet by nereida th once daily. Take 10 mg by mouth once daily. Take 40 mg by mouth daily at bedtime. meclizine hydrochloride 25 mg oral tablet (20 sources) Antiemetic Start: 02-14-20 End: 02-04-20 take 1 tablet by mouth three times daily as needed for dizziness Meclizine 25 mg tablet Discontinued 25 mg PO THREE TIMES A DAY as needed for dizziness 30 0 February 13, 2022 2:21pm February 03, 2023 3:45pm Start: 02-04-2022 End: 02-09-2022 take 1 tablet by mouth three times daily meclizine (ANTIVERT) 25 mg tab Take 1 tablet by mouth three times daily for 15 doses. 15 tablet 0 02/04/2022 02/09/2022 Active Comment on above: Take 1 tablet by nereida three times daily for 15 doses. Take 25 mg by mouth as needed. midazolam 50 mg/ml nasal spray (20 sources) Benzodiazepine Start: End: 3 midazolam (NAYZILAM) 5 mg/spray (0.1 mL) nasal spray Indications: Recurrent seizures (HCC) Use 1 spray in one nostril as needed for seizures. May repeat dose in alternate nostril after 10 minutes based on response and tolerability. 2 [place] 1 12/10/2020 02/01/2023 Discontinued (Other) Comment on above: Use 1 spray in one n ostril as needed for seizures. May repeat dose in alternate nostril after 10 minutes based on response and tolerability. nadolol 20 mg oral tablet (20 sources) beta-Adrenergic Mariel Start: 4 End: take 1 tablet by mouth twice daily Nadolol 20 mg tablet Discontinued 20 mg PO TWICE A DAY July 03, 2024 12:00am December 18, 2024 9:40am heart Start: 12-18-2023 take 1 tablet by nereida twice daily Start: 12-07-2023 End: 12-09-2023 take 1 tablet by mouth twice daily Nadolol 40 mg tablet Discontinued 40 mg PO TWICE A DAY December 06, 2023 11:00pm December 09, 2023 10:01am blood pressure Start: 12-07-2023 End: 12-09-2023 take 40 mg by mouth twice daily Nadolol Discontinued 4 0 MG PO .bid December 07, 2023 12:00am December 09, 2023 11:01am Start: 08-02-2023 End: 12-18-2023 take 1 tablet by mouth twice daily Nadolol 20 mg Tablet Discontinued 20 mg PO TWICE A DAY 0 0 December 08, 2023 11:00pm December 18, 2023 1:47pm omeprazole 20 mg delayed release oral capsule (20 sources) Proton Pump Inhibitor Start: 04-26-2021 End: 02-03-2023 take 1 capsule by mouth once daily Omeprazole 20 mg capsule,delayed release(DR/EC) Discontinued 20 mg PO DAILY August 10, 2021 12:00am February 03, 2023 3:45pm Comment on above: Take 1 capsule by mo [facility] daily before breakfast. 1/2 hr before meal. 2 ml ondansetron 2 mg/ml injection (1 source) Serotonin-3 Receptor Antagonist Start: 01-27-2025 End: 01-27-2025 4 mg, Intravenous, ONCE NEEDED, 1 dose, Starting on Mon01/27/25 at 1150, Until Mon01/27/25 at 1837, Nausea, Intra-op/Intra-Proc oxyCODONE hydrochloride 5 mg oral tablet (7 sources) Opioid Agonist Start: 07-23-2024 End: 12-18-2024 take 1 tablet by mouth every eight hours as needed for pain Oxycodone 5 mg tablet Discontinued 5 mg PO Q8H as needed for pain 9 3 0 July 23, 2024 December 18, 2024 9:40am End stage renal failure on dialysis End stage renal disease Dependence on renal dialysis pantoprazole 20 mg delayed release oral tablet (20 sources) Proton Pump Inhibitor Start: 02-06-2024 End: 03-25-2025 take 2 tablets by mouth once daily Pantoprazole 20 mg tablet,delayed release (DR/EC) Discontinued 40 mg PO DAILY 90 April 30, 2024 1:10pm November 19, 2024 1:17pm reflux Start: 08-02-2023 End: 02-06-2024 take 2 tablets by mouth every twelve hours Pantoprazole 20 mg tablet,delayed release (DR/EC) Discontinued 40 mg PO Q12H 60 August 02, 2023 12:00am February 06, 2024 9:32am Start: 08-02-2023 take 40 mg by mouth every twelve hours Pantoprazole Active 40 MG PO Q12H 60 August 02, 2023 1:00am Perflutren Lipid Microsphere (DEFINITY) 1.5 mL in Normal saline flush 0.9% 8.5 mL (1 source) Start: 12-11-2024 End: 12-11-2024 10 mL, Intravenous, ONCE, 1 dose, On Mon12/11/24 at 1015, FOR ECHO PROCEDURE ONLY Dilute 1.5 mL of Definity with 8.5 mL of 0.9% sodium chloride and draw up in a 10 mL syringe. Administration during procedure as directed by physician. Recorded MAR dose is cumulative amount given during procedure., Echo Procedure promethazine hydrochloride 12.5 mg oral tablet (14 sources) Phenothiazine Start: 02-15-2022 End: 12-01-2022 take 1 tablet by mouth every six hours as needed promethazine (PHENERGAN) 12.5 mg tablet Indications: BPPV (benign paroxysmal positional vertigo), unspecified laterality Take 1 tablet by mouth every 6 hours as needed. 12 tablet 0 02/15/2022 12/01/2022 Discontinued Comment on above: Take 1 tablet by nereida th every 6 hours as needed. regadenoson (LEXISCAN) injection 0.4 mg (1 source) Start: 12-13-2024 End: 12-13-2024 take 0.4 mg intravenously once 0.4 mg, Intravenous, ONCE, 1 dose, On Mon12/13/24 at 1000, Give rapid iv push over 10 seconds, NM Procedure sevelamer carbonate 800 mg oral tablet (7 sources) Phosphate Binder Start: 07-03-2024 End: 05-07-2025 take 1 tablet by mouth three times daily at mealtime Sevelamer Carbonate 800 mg tablet Discontinued 800 mg PO 3 TIMES DAILY WITH MEALS July 03, 2024 12:00am May 07, 2025 9:36am phosphate binder 20 ml sodium chloride 9 mg/ml injection (4 sources) Start: 04-23-2025 End: 04-23-2025 1-100 mL, Intravenous, ONCE NEEDED, 1 dose, Starting on Mon04/23/25 at 1409, Until Mon04/23/25 at 1409, Flush, CT Procedure Start: 12-13-2024 End: 12-13-2024 10-50 mL, Intravenous, ONCE NEEDED, 1 dose, Starting on Mon12/13/24 at 0945, Until Mon12/13/24 at 0943, Flush, NM Procedure Start: 12-13-2024 End: 12-13-2024 10-50 mL, Intravenous, ONCE NEEDED, 1 dose, Starting on Mon12/13/24 at 0808, Until Mon12/13/24 at 0800, Flush, NM Procedure Start: 12-11-2024 End: 12-11-2024 1-100 mL, Intravenous, ONCE NEEDED, 1 dose, Starting on Mon12/11/24 at 0739, Until Mon12/11/24 at 0744, Flush, CT Procedure spironolactone 50 mg oral tablet (14 sources) Aldosterone Antagonist Start: 07-03-2024 End: 12-18-2024 take 2 tablets by mouth once daily Spironolactone 50 mg tablet Discontinued 100 mg PO DAILY July 03, 2024 12:00am December 18, 2024 9:40am diuretic Start: 05-30-2024 End: 06-07-2024 take 1 tablet by mouth twice daily Spironolactone 50 mg tablet Discontinued 50 mg PO TWICE A DAY May 29, 2024 11:00pm June 07, 2024 8:05am SUMAtriptan 25 mg oral tablet (7 sources) Serotonin-1b and Serotonin-1d Receptor Agonist Start: 07-03-2024 End: 07-19-2024 take 1 tablet by mouth twice daily as needed Sumatriptan Succinate 25 mg tablet Discontinued 25 mg PO TWICE DAILY NEEDED July 03, 2024 12:00am July 19, 2024 10:49am migraine Syringe (Disposable) (Bd Luer-Jurgen Syringe) 3 mL syringe (20 sources) Start: 12-06-2017 End: 05-01-2018 Syringe (Disposable) (Bd Luer-Jurgen Syringe) 3 mL syringe Discontinued 0 .ROUTE .MEDSUPPLY 2 December 06, 2017 12:20pm May 01, 2018 12:04pm Other specified abnormal findings of blood chemistry As directed Start: 12-06-2017 End: 05-01-2018 Syringe (Disposable) (Bd Lue r-Jurgen Syringe) 3 mL syringe Discontinued 0 .ROUTE .MEDSUPPLY 2 December 06, 2017 1:20pm May 01, 2018 1:04pm Other specified abnormal findings of blood chemistry As directed Start: 12-06-2017 End: 05-01-2018 Syringe (Disposable) (Bd Lue r-Jurgen Syringe) 3 mL syringe Discontinued 0 .ROUTE .MEDSUPPLY 2 December 06, 2017 12:20pm May 01, 2018 12:04pm As directed Start: 12-06-2017 End: 05-01-2018 Syringe (Disposable) (Bd Lue r-Jurgen Syringe) 3 mL syringe Discontinued 0 .ROUTE .MEDSUPPLY 2 December 06, 2017 1:20pm May 01, 2018 1:04pm As directed Start: 10-29-2017 End: 12-06-2017 Syringe (Disposable) (Bd Lue r-Jurgen Syringe) 3 mL syringe Discontinued 0 .ROUTE .MEDSUPPLY 2 October 29, 2017 9:48pm December 06, 2017 1:22pm As directed Start: 10-29-2017 End: 12-06-2017 Syringe (Disposable) (Bd Lue r-Jurgen Syringe) 3 mL syringe Discontinued 0 .ROUTE .MEDSUPPLY 2 October 29, 2017 12:00am December 06, 2017 12:22pm Other specified abnormal findings of blood chemistry As directed Start: 10-29-2017 End: 12-06-2017 Syringe (Disposable) (Bd Lue r-Jurgen Syringe) 3 mL syringe Discontinued 0 .ROUTE .MEDSUPPLY 2 October 29, 2017 1:00am December 06, 2017 1:22pm Other specified abnormal findings of blood chemistry As directed Start: 10-29-2017 End: 12-06-2017 Syringe (Disposable) (Bd Lue r-Jurgen Syringe) 3 mL syringe Discontinued 0 .ROUTE .MEDSUPPLY 2 October 29, 2017 12:00am December 06, 2017 12:22pm As directed Start: 10-29-2017 End: 12-06-2017 Syringe (Disposable) (Bd Lue r-Jurgen Syringe) 3 mL syringe Discontinued 0 .ROUTE .MEDSUPPLY 2 October 29, 2017 1:00am December 06, 2017 1:22pm As directed Technetium tc 99m sestamibi (SESTAMIBI) 7.2-38.5 millicurie (1 source) Start: 12-13-2024 End: 12-13-2024 7.2-38.5 millicurie, Intravenous, ONCE, 1 dose, On Mon12/13/24 at 0815 Technetium tc 99m sestamibi (SESTAMIBI) 7.2-49.5 millicurie (1 source) Start: 12-13-2024 End: 12-13-2024 7.2-49.5 millicurie, Intravenous, ONCE, 1 dose, On Mon12/13/24 at 1000 1 ml testosterone cypionate 200 mg/ml injection (20 sources) Androgen Start: 02-03-2023 End: 04-27-2023 inject 200 mg by intramuscular injection every other week Testosterone Cypionate 200 mg/mL oil Discontinued 200 mg IM every 2 weeks February 02, 2023 11:00pm April 27, 2023 1:26pm Start: 02-03-2023 End: 04-27-2023 inject 200 mg by intramuscular injection every other week Testosterone Cypionate Discontinued 200 MG IM every 2 weeks February 03, 2023 12:00am April 27, 2023 2:26pm Start: 10-30-2018 End: 04-15-2021 inject 200 mg by intramuscular injection every week Testosterone Cypionate 200 MG/ML oil Discontinued 200 mg IM EVERY WEEK October 30, 2018 6:59am April 15, 2021 12:39pm Q2 WEEKS Start: 10-30-2018 End: 04-15-2021 inject 200 mg by intramuscular injection every week Testosterone Cypionate Discontinued 200 MG IM EVERY WEEK October 30, 2018 7:59am April 15, 2021 1:39pm Q2 WEEKS Start: 06-14-2018 End: 10-30-2018 inject 200 mg by intramuscular injection every other week Testosterone Cypionate 200 mg/mL oil Discontinued 200 mg IM every 2 weeks 09 01September 06, 2018 9:34am October 30, 2018 7:00am Other specified abnormal findings of blood chemistry Low testosterone level Start: 06-14-2018 End: 10-30-2018 inject 200 mg by intramuscular injection every other week Testosterone Cypionate Discontinued 200 MG IM every 2 weeks September 06, 2018 9:34am October 30, 2018 7:00am Low testosterone level Start: 03-26-2018 End: 06-14-2018 inject 200 mg by intramuscular injection every other week Testosterone Cypionate 200 mg/mL oil Discontinued 200 mg IM every 2 weeks 09 01March 26, 2018 12:48pm June 14, 2018 11:40am Other specified abnormal findings of blood chemistry Low testosterone level Start: 03-26-2018 End: 06-14-2018 inject 200 mg by intramuscular injection every other week Testosterone Cypionate Discontinued 200 MG IM every 2 weeks March 26, 2018 1:48pm June 14, 2018 12:40pm Low testosterone level Start: 12-28-2017 End: 12-28-2017 inject 200 mg by intramuscular injection once testosterone cypionate 200 mg/mL intramuscular kit Discontinued 200 MG IM ONCE December 28, 2017 11:18am December 28, 2017 12:13pm Start: 12-07-2017 End: 12-07-2017 inject 200 mg by intramuscular injection once testosterone cypionate 200 mg/mL intramuscular kit Discontinued 200 MG IM ONCE December 07, 2017 11:30am December 07, 2017 11:55am Start: 12-06-2017 End: 03-26-2018 Testosterone Cypionate 200 m g/mL oil Discontinued 200 mg IM every 3 weeks 08 30February 14, 2018 12:13pm March 26, 2018 12:49pm Low testosterone level Start: 12-06-2017 End: 03-26-2018 Testosterone Cypionate Discontinued 200 MG IM every 3 weeks February 14, 2018 12:13pm March 26, 2018 12:49pm Low testosterone level Start: 11-24-2016 End: 12-06-2017 Testosterone Cypionate 100 M G/ML oil Discontinued 100 mg IM November 23, 2016 11:00pm December 06, 2017 12:15pm Start: 11-24-2016 End: 12-06-2017 Testosterone Cypionate Discontinued 100 MG IM November 24, 2016 12:00am December 06, 2017 1:15pm vitamin b12 0.5 mg oral tablet (20 sources) Vitamin B12 Start: 11-24-2016 End: 02-03-2023 take 1 tablet by mouth once daily Cyanocobalamin (Vitamin B-12) 500 MCG tablet Discontinued 500 ug PO DAILY@0800 November 23, 2016 11:00pm February 03, 2023 3:45pm Start: 08-09-2013 take 2 tablets by mo uth once daily cyanocobalamin (VITAMIN B-12) 500 mcg tablet Take 2 tablets by mouth once daily 08/09/2013 Active Cyanocobalamin ( VITAMIN B-12) 500 MCG Tab SL Indications: Liver lesion , Malignant neoplasm of colon, unspecified part of colon by Sublingual route daily. Active Comment on above: Take 2 tablets by mo uth once daily Problems Active Problems Problem Classification Problem Date Documented Date Episodic/Chronic Alcohol-related disorders (20 sources) Chronic alcoholism in remission; Translations: [Alcohol dependence, in remission] Onset: 2 03-01-2012 Chronic Cancer of colon (20 sources) Malignant tumor of cecum; Translations: [Malignant neoplasm of cecum] Onset: 5 10-13-2021 Chronic Chronic kidney disease (20 sources) Chronic kidney disease stage 3A ; Translations: [Stage 3a chronic kidney disease] Onset: 1 01-14-2021 Chronic Comment on above: CKD Stage IV disease , preparing to begin hemodialysis. Iron level is normal today, Hgb 7.3.Has started HD. Chronic ulcer of skin (1 source) Skin ulcer; Translations: [Non-pressure chronic ulcer of skin of other sites limited to breakdown of skin] Chronic Complication of device; implant or graft (6 sources) Arteriovenous fistula stenosis; Translations: [Stenosis of other vascular prosthetic devices, implants and grafts, initial encounter] Onset: 5 06-04-2025 Chronic Deficiency and other anemia (1 source) Iron deficiency anemia due to blood loss; Translations: [Iron deficiency anemia secondary to blood loss (chronic)] Chronic Deficiency and other anemia (18 sources) Anemia of chronic disease; Translations: [Anemia in other chronic diseases classified elsewhere] 12-07-2023 Chronic Deficiency and other anemia (5 sources) Anemia in other chronic diseases classified elsewhere; Translations: [Anemia of other chronic disease] Onset: 4 12-07-2023 Chronic Deficiency and other anemia (7 sources) Anemia due to chronic blood loss; Translations: [Iron deficiency anemia secondary to blood loss (chronic)] 06-18-2024 Chronic Deficiency and other anemia (1 source) Anemia in chronic kidney disease; Translations: [Anemia in chronic kidney disease] Onset: 5 Chronic Deficiency and other anemia (1 source) Iron deficiency anemia secondary to blood loss (chronic); Translations: [Iron deficiency anemia secondary to blood loss (chronic)] Onset: 4 Chronic Deficiency and other anemia (7 sources) Chronic anemia; Translations: [Anemia, unspecified] 07-03-2024 Episodic Diabetes mellitus with complications (20 sources) Type 1 diabetes mellitus; Translations: [Type 1 diabetes mellitus with diabetic polyneuropathy] Onset: 9 09-27-2018 Chronic Comment on above: BG readings 100-280 We discussed working to keep as much control and focus as possible as high Bg create more anxiety and make him feel worse. He agrees to try. Diabetes mellitus without complication (20 sources) Latent autoimmune diabetes mellitus in adult; Translations: [Other specified diabetes mellitus without complications] Onset: 4 01-30-2023 Chronic Disorders of lipid metabolism (20 sources) Mixed hyperlipidemia; Translations: [Mixed hyperlipidemia] Onset: 5 02-23-2012 Chronic Disorders of teeth and jaw (18 sources) Toothache; Translations: [Other specified disorders of teeth and supporting structures] 01-22-2023 Episodic Epilepsy; convulsions (20 sources) Seizure disorder; Translations: [Epilepsy, unspecified, not intractable, without status epilepticus] 10-13-2021 Chronic Esophageal disorders (20 sources) Esophageal varices; Translations: [Esophageal varices without bleeding] Onset: 3 11-26-2022 Chronic Comment on above: CONTROLLED WITH MED Esophageal disorders (20 sources) Lesion of esophagus; Translations: [Disease of esophagus, unspecified] 12-15-2022 Episodic Essential hypertension (20 sources) Essential hypertension; Translations: [Essential (primary) hypertension] Onset: 5 Chronic Fracture of lower limb (20 sources) Closed fracture of phalanx of foot; Translations: [Displaced unspecified fracture of left lesser toe(s), initial encounter for closed fracture] Onset: 2 Episodic Gastrointestinal hemorrhage (2 sources) Bleeding esophageal varices; Translations: [Esophageal varices with bleeding] Chronic Genitourinary symptoms and ill-defined conditions (20 sources) Microalbuminuria; Translations: [Proteinuria, unspecified] Onset: 3 12-29-2022 Episodic Headache; including migraine (7 sources) Headache; Translations: [Headache] 07-02-2024 Episodic Headache; including migraine (1 source) Headache; including migraine; Translations: [Headache, unspecified] Onset: 4 Hypertension with complications and secondary hypertension (16 sources) Hypertension secondary to endocrine disorder; Translations: [Hypertension secondary to endocrine disorders] Chronic Immunizations and screening for infectious disease (1 source) Vaccination needed; Translations: [Encounter for immunization] Episodic Infective arthritis and osteomyelitis (except that caused by tuberculosis or sexually transmitted disease) (1 source) Osteomyelitis of forefoot; Translations: [Osteomyelitis, unspecified] Chronic Influenza (13 sources) Influenza due to Influenza A virus; Translations: [Influenza due to other identified influenza virus with other respiratory manifestations] 10-16-2023 Episodic Malaise and fatigue (14 sources) Asthenia; Translations: [Weakness] Onset: 4 07-02-2024 Episodic Malignant neoplasm without specification of site (8 sources) Malignant neoplastic disease; Translations: [Malignant (primary) neoplasm, unspecified] Onset: 4 07-02-2024 Chronic Comment on above: COLON/HAD COLECTOMY/ HAD CHEMO TX 2013 Mood disorders (20 sources) Recurrent major depressive episodes; Translations: [Major depressive disorder, recurrent, unspecified] Onset: 5 06-17-2015 Chronic Mycoses (1 source) Onychomycosis; Translations: [Tinea unguium] Episodic Nervous system congenital anomalies (20 sources) Dandy-Walker syndrome; 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-23-2021 Chronic Non-Hodgkin`s lymphoma (20 sources) Sezary's disease (clinical); 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, unspecified site] Onset: 3 10-30-2018 Chronic Nutritional deficiencies (20 sources) Vitamin D deficiency; Translations: [Vitamin D deficiency, unspecified] Onset: 3 12-29-2022 Chronic Other aftercare (20 sources) Patient encounter status; Translations: [Encounter for therapeutic drug level monitoring] 02-08-2022 Episodic Other aftercare (2 sources) Encounter for adjustment and management of vascular access device; Translations: [Encounter for adjustment and management of vascular access device] Onset: 5 Episodic Other circulatory disease (15 sources) Arteriovenous fistula; Translations: [Arteriovenous fistula, acquired] 09-30-2024 Chronic Other circulatory disease (2 sources) Arteriovenous fistula, acquired; Translations: [Arteriovenous fistula, acquired] Onset: 5 Chronic Other circulatory disease (1 source) Other specified peripheral vascular diseases; Translations: [Other specified peripheral vascular diseases] Onset: 5 Chronic Other circulatory disease (10 sources) Carotid bruit; Translations: [Other specified symptoms and signs involving the circulatory and respiratory systems] 04-21-2025 Episodic Other circulatory disease (1 source) Other specified symptoms and signs involving the circulatory and respiratory systems; Translations: [Other specified symptoms and signs involving the circulatory and respiratory systems] Onset: 5 Episodic Other connective tissue disease (1 source) Pain in left lower limb; Translations: [Pain in left leg] Episodic Other connective tissue disease (1 source) Pain of toe of left foot; Translations: [Pain in left toe(s)] Episodic Other connective tissue disease (1 source) Pain of toe of right foot; Translations: [Pain in right toe(s)] Episodic Other diseases of kidney and ureters (9 sources) Hyperparathyroidism due to renal insufficiency; Translations: [Secondary hyperparathyroidism of renal origin] 07-04-2024 Chronic Other diseases of kidney and ureters (1 source) Secondary hyperparathyroidism of renal origin; Translations: [Secondary hyperparathyroidism of renal origin] Onset: 4 Chronic Other diseases of kidney and ureters (1 source) Acute nephropathy; Translations: [Disorder of kidney and ureter, unspecified] Episodic Other diseases of kidney and ureters (20 sources) Renal insufficiency; Translations: [Disorder of kidney and ureter, unspecified] 10-31-2018 Episodic Other diseases of kidney and ureters (2 sources) Chronic renal insufficiency; Translations: [Disorder of kidney and ureter, unspecified] 12-26-2023 Episodic Other diseases of veins and lymphatics (20 sources) Gastric varices without bleeding; Translations: [Gastric varices] 12-16-2022 Episodic Other diseases of veins and lymphatics (13 sources) Disorder of spleen; Translations: [Varicose veins of other specified sites] 09-29-2023 Episodic Other endocrine disorders (20 sources) Hypogonadotropic hypogonadism; Translations: [Testicular hypofunction] Onset: 3 08-23-2021 Chronic Other endocrine disorders (20 sources) Male hypogonadism; Translations: [Testicular hypofunction] Onset: 3 11-02-2018 Chronic Other endocrine disorders (1 source) Secondary hyperparathyroidism, not elsewhere classified; Translations: [Secondary hyperparathyroidism, not elsewhere classified] Onset: 4 Chronic Other gastrointestinal disorders (20 sources) Loose stool; Translations: [Other fecal abnormalities] 07-25-2023 Episodic Other gastrointestinal disorders (7 sources) History of esophageal varices; Translations: [Personal history of other diseases of the digestive system] 07-02-2024 Episodic Other gastrointestinal disorders (7 sources) Occult blood in stools; Translations: [Other fecal abnormalities] 06-18-2024 Episodic Other hereditary and degenerative nervous system conditions (20 sources) Essential tremor; Translations: [Essential tremor] Onset: 3 05-20-2021 Chronic Other hereditary and degenerative nervous system conditions (13 sources) Essential tremor; Translations: [Essential and other specified forms of tremor] Onset: 4 Chronic Other infections; including parasitic (7 sources) History of hepatitis C; Translations: [Personal history of other infectious and parasitic diseases] 07-02-2024 Episodic Other liver diseases (20 sources) Lesion of liver; Translations: [Liver disease, unspecified] Onset: 6 12-29-2022 Chronic Other liver diseases (1 source) Hepatic fibrosis; Translations: [Hepatic fibrosis] 12-30-2024 Chronic Other liver diseases (8 sources) Fatty (change of) liver, not elsewhere classified; Translations: [Nonalcoholic fatty liver disease] Onset: 4 07-02-2024 Chronic Other liver diseases (1 source) Portal hypertension; Translations: [Portal hypertension] 04-23-2025 Chronic Other liver diseases (2 sources) Liver disease, unspecified; Translations: [Liver disease, unspecified] Onset: 6 Chronic Other liver diseases (1 source) Large liver; Translations: [Hepatomegaly, not elsewhere classified] Episodic Other liver diseases (5 sources) Hepatosplenomegaly; Translations: [Hepatomegaly with splenomegaly, not elsewhere classified] 12-26-2024 Episodic Other liver diseases (2 sources) Hepatomegaly with splenomegaly, not elsewhere classified; Translations: [Hepatomegaly with splenomegaly, not elsewhere classified] Onset: 5 Episodic Other lower respiratory disease (13 sources) Cough; Translations: [Cough] 10-16-2023 Episodic Other nervous system disorders (20 sources) Polyneuropathy; Translations: [Polyneuropathy, unspecified] Onset: 3 05-20-2021 Chronic Other nervous system disorders (11 sources) Polyneuropathy, unspecified; Translations: [Unspecified hereditary and idiopathic peripheral neuropathy] Onset: 5 Chronic Other nervous system disorders (5 sources) Neuropathy; Translations: [Polyneuropathy, unspecified] 01-30-2023 Chronic Other nervous system disorders (20 sources) Trigeminal neuralgia; Translations: [Trigeminal neuralgia] Onset: 5 08-23-2021 Episodic Other nervous system disorders (12 sources) Trigeminal neuralgia; Translations: [Trigeminal neuralgia] Onset: 5 Episodic Other nervous system disorders (18 sources) Postoperative pain ; Translations: [Other acute postprocedural pain] 01-22-2023 Episodic Other nervous system disorders (3 sources) Left trigeminal neuralgia; Translations: [Trigeminal neuralgia] 01-15-2020 Episodic Other nutritional; endocrine; and metabolic disorders (20 sources) Obesity; Translations: [Obesity, unspecified] Onset: 0 04-28-2020 Chronic Other nutritional; endocrine; and metabolic disorders (12 sources) Obese class I; Translations: [Obesity, unspecified] Onset: 3 12-23-2022 Chronic Other nutritional; endocrine; and metabolic disorders (9 sources) Obesity, unspecified; Translations: [Obesity, unspecified] 01-30-2023 Chronic Other nutritional; endocrine; and metabolic disorders (7 sources) Hyperphosphatemia; Translations: [Other disorders of phosphorus metabolism] 07-04-2024 Chronic Other nutritional; endocrine; and metabolic disorders (1 source) Other disorders of phosphorus metabolism; Translations: [Other disorders of phosphorus metabolism] Onset: 4 Chronic Other nutritional; endocrine; and metabolic disorders (20 sources) H/O: metabolic disorder; Translations: [Personal history of other endocrine, nutritional and metabolic disease] 11-29-2021 Episodic Other nutritional; endocrine; and metabolic disorders (2 sources) Personal history of other endocrine, nutritional and metabolic disease; Translations: [Personal history of other endocrine, metabolic, and immunity disorders] 11-23-2022 Episodic Other upper respiratory infections (1 source) Acute upper respiratory infection; Translations: [Acute upper respiratory infection, unspecified] Episodic Pancreatic disorders (not diabetes) (20 sources) Chronic pancreatitis; Translations: [Other chronic pancreatitis] Onset: 5 05-09-2005 Chronic Residual codes; unclassified (20 sources) Edema of left lower leg; Translations: [Localized edema] Episodic Residual codes; unclassified (1 source) FH: Thrombosis; Translations: [Family history of ischemic heart disease and other diseases of the circulatory system] Episodic Residual codes; unclassified (20 sources) Edema of left lower limb; Translations: [Localized edema] 12-05-2021 Episodic Skin and subcutaneous tissue infections (20 sources) Cellulitis of toe; Translations: [Cellulitis of left toe] Onset: 7 Resolved: 0 02-03-2022 Episodic Spondylosis; intervertebral disc disorders; other back problems (20 sources) Low back pain; Translations: [Lumbago] Onset: 5 09-16-2009 Episodic Syncope (20 sources) Syncope; Translations: [Syncope and collapse] Onset: 3 11-23-2022 Episodic Unclassified (1 source) OPENED IN ERROR Unclassified (1 source) Hepatic fibrosis, unspecified; Translations: [Hepatic fibrosis, unspecified] Onset: 5 Unclassified (1 source) Acidosis, unspecified; Translations: [Acidosis, unspecified] Onset: 4 Past or Other Problems Problem Classification Problem Date Documented Da te Episodic/Chronic Acute and unspecified renal failure (20 sources) Acute renal failure syndrome; Translations: [Acute kidney failure, unspecified] Onset: 4 12-07-2023 Episodic Cancer of colon (20 sources) History of malignant neoplasm of colon; Translations: [Personal history of other malignant neoplasm of large intestine] Onset: 3 Episodic Comment on above: No clinical evidence of disease. CEA 2.1 on 05/29/2024 Complication of device; implant or graft (8 sources) Complication associated with dialysis catheter; Translations: [Unspecified complication of cardiac and vascular prosthetic device, implant and graft, initial encounter] Onset: 5 09-20-2024 Episodic Conditions associated with dizziness or vertigo (20 sources) Benign paroxysmal positional vertigo; Translations: [Benign paroxysmal vertigo, unspecified ear] Onset: 2 Episodic Deficiency and other anemia (20 sources) Anemia; Translations: [Anemia, unspecified] Onset: 2 Episodic Deficiency and other anemia (9 sources) Anemia, unspecified; Translations: [Anemia, unspecified] Onset: 4 Episodic Fluid and electrolyte disorders (20 sources) Hyperkalemia; Translations: [Hyperkalemia] Onset: 3 Episodic Gastrointestinal hemorrhage (17 sources) Gastrointestinal hemorrhage; Translations: [Gastrointestinal hemorrhage, unspecified] Onset: 3 Episodic Hepatitis (8 sources) Viral hepatitis C; Translations: [Unspecified viral hepatitis C without hepatic coma] Onset: 4 07-02-2024 Episodic Comment on above: 15-20 YRS AGO/TREATE D Miscellaneous mental health disorders (6 sources) Dissociative convulsions; Translations: [Conversion disorder with seizures or convulsions] Onset: 2 Resolved: 9 07-23-2019 Chronic Other aftercare (1 source) Encounter for surgical aftercare following surgery on the circulatory system; Translations: [Encounter for surgical aftercare following surgery on the circulatory system] Onset: 4 Episodic Other and unspecified benign neoplasm (20 sources) Polyp of colon; Translations: [Polyp of colon] Onset: 6 08-23-2021 Episodic Other connective tissue disease (6 sources) Lateral epicondylitis; Translations: [Lateral epicondylitis, unspecified elbow] Onset: 4 Resolved: 6 09-25-2015 Episodic Other connective tissue disease (1 source) Pain in left leg; Translations: [Pain in left leg] Onset: 5 Episodic Other connective tissue disease (1 source) Pain in right leg; Translations: [Pain in right leg] Onset: 5 Episodic Other diseases of kidney and ureters (20 sources) Cyst of kidney; Translations: [Cyst of kidney, acquired] Onset: 0 02-12-2020 Episodic Other diseases of kidney and ureters (12 sources) Renal impairment; Translations: [Disorder of kidney and ureter, unspecified] Onset: 3 Episodic Other diseases of veins and lymphatics (11 sources) Gastric varices; Translations: [Varices of other sites] Onset: 4 12-15-2022 Episodic Other diseases of veins and lymphatics (1 source) Varicose veins of other specified sites; Translations: [Varicose veins of other specified sites] Onset: 4 Episodic Other gastrointestinal disorders (9 sources) Other fecal abnormalities; Translations: [Abnormal feces] Onset: 4 07-25-2023 Episodic Other gastrointestinal disorders (1 source) Personal history of other diseases of the digestive system; Translations: [Personal history of other diseases of the digestive system] Onset: 4 Episodic Other infections; including parasitic (1 source) Personal history of other infectious and parasitic diseases; Translations: [Personal history of other infectious and parasitic diseases] Onset: 4 Episodic Other non-traumatic joint disorders (6 sources) Pain in elbow; Translations: [Pain in unspecified elbow] Onset: 4 Resolved: 6 09-25-2015 Episodic Other non-traumatic joint disorders (5 sources) Arthralgia of the upper arm; Translations: [Pain in unspecified elbow] Onset: 4 Resolved: 6 09-25-2015 Episodic Other non-traumatic joint disorders (1 source) Pain in upper arm; Translations: [Pain in unspecified elbow] Onset: 4 Resolved: 6 09-25-2015 Episodic Other nutritional; endocrine; and metabolic disorders (14 sources) H/O: diabetes mellitus; Translations: [Personal history of other endocrine, nutritional and metabolic disease] Onset: 3 11-23-2022 Episodic Other screening for suspected conditions (not mental disorders or infectious disease) (20 sources) Decreased testosterone level ; Translations: [Other specified abnormal findings of blood chemistry] Onset: 3 Episodic Comment on above: On replacement Other skin disorders (12 sources) Sebaceous cyst of skin; Translations: [Sebaceous cyst] Onset: 6 Resolved: 6 09-16-2009 Episodic Sprains and strains (6 sources) Sprain of foot; Translations: [Unspecified sprain of unspecified foot, initial encounter] Onset: 7 Resolved: 0 09-16-2009 Episodic Unclassified (20 sources) portacath placement 03-19-2022 Comment on above: LEFT CHEST/DIFFICULT TO USE AT TIMES Unclassified (5 sources) Patient encounter status 11-08-2024 Unclassified (1 source) Hepatic fibrosis, unspecified; Translations: [Hepatic fibrosis, unspecified] Onset: 5 Results Test Name Value Interpretation Reference Range Facility Carbamazepine (Tegretol)on 08-30-2024 CARBAMAZEPINE 2.8 ug/mL Low 4.0-12.0 [facility] Comment on above: Performed By: #### L 501.7900 ####[facility] [id number] [place], [address] Neurology Visit Reporton Neurology Visit Report Normal [facility] Serum or plasma carbamazepin e level (mass/volume)Ordered By: Robb Paulson on 06-30-2025 carBAMazepine [Mass/Vol] 2.8 ug/mL Low 4.0-12.0 [facility] MR/BMS.BVSon 06-25-2025 MR/BMS.BVS Normal [facility] Endocrinology Visit Reporton 06-18-2025 Endocrinology Visit Report Normal [facility] Operative Reporton 5 Operative Report Normal [facility] PRA CLASS (PRE-TRANSPLANT)on 05-15-2025 AB SPECIFICITY CLASS COMMENT Antibody Specificity testing performed by [employer]. cPRA calculation based on identification of HLA antibody specificities at MFI >2000 and/or presence of CREG antibodies. Normal [facility] Comment on above: Order Comment: RELEA SED BY LAB ONLY Result Comment: Some of the reagents used for testing in the Clinical Histocompatibility Laboratory have yet to be approved by the FDA. Our certification by CLIA to perform high complexity tests allows us to use these reagents in the context of a stringent QC program, and obviates the need for FDA approval.Testing performed by the [facility] Clinical [facility]ocompatibility Laboratory. [facility] number: [id number]. CLIA number: [id number], Director: Sage Domingo, PhD, F([facility]). Performed By: #### C A199 #### [facility] (DEFAULT) [address] [address] CLASS I SPECIFICITIES Not detected Normal [facility] Comment on above: Order Comment: RELEA SED BY LAB ONLY Performed By: #### C A199 #### [facility] (DEFAULT) [address] [address] CLASS II SPECIFICITIES Not detected Normal [facility] Comment on above: Order Comment: RELEA SED BY LAB ONLY Performed By: #### C A199 #### [facility] (DEFAULT) [address] [address] cPRA 0 % Normal 0 [facility] Comment on above: Order Comment: RELEA SED BY LAB ONLY Performed By: #### C A199 #### [facility] (DEFAULT) [address] [address] Gastroenterology Visit Repor ton 05-07-2025 Gastroenterology Visit Report Normal [facility] CT ABDOMEN WITH AND WITHOUT CONTRASTon 05-05-2025 CT ABDOMEN WITH AND WITHOUT CONTRAST EXAM: CT ABDOMEN WITH AND WITHOUT CONTRAST, 04/23/2025 15:11 PM CLINICAL INDICATIONS: liver lesion, obtain triple phase imaging R16.2:Hepatosplenomegaly K76.9:Liver lesion Triple phase imaging; COMPARISON: CT angiogram dated December 11, 2024 TECHNIQUE: CT scanning was performed of the abdomen before and after the administration of intravenous contrast. PROTOCOL: Triple phase liver: Images were obtained through the liver prior to intravenous contrast and then in an arterial and portal venous phase after intravenous contrast. Additional images were obtained through the pelvis. CONTRAST: iohexol (OMNIPAQUE) 350 MG/ML injection 1-171 mL; Route of Administration: Intravenous; Dose: 90 mL. FINDINGS: Lung Bases: Normal. Liver: Diffuse steatosis. No liver lesions. Gallbladder: Normal. Bile Ducts: Normal in caliber. Spleen: Enlarged, measuring 14 cm. Nonspecific calcification adjacent to the inferior pole of the spleen, unchanged. Pancreas: Normal. Adrenals: Stable bilateral myelolipomas. Right Kidney: Similar perinephric stranding. Too small to characterize parenchymal hypodensities. No stones. No hydronephrosis. Left Kidney: Similar perinephric stranding. Benign lower pole cysts. No solid mass. No stones. No hydronephrosis. Gastrointestinal: Extended right colectomy with anastomosis in the central abdomen. Imaged bowel loops are nondilated without wall thickening. Peritoneum/retroperitone um: No ascites. Lymph nodes: No enlarged or morphologically abnormal lymph nodes. Vasculature: The abdominal aorta is normal in course and caliber. Patent celiac and superior mesenteric arteries. Patent portal, splenic, and superior mesenteric veins. Numerous portosystemic venous collaterals and gastric varices. Body Wall: Stable soft tissue densities in the anterior abdominal wall, likely related to medication injections (insulin related lipohypertrophy). Bones: Normal for patient age. No aggressive lesion. IMPRESSION: 1. No liver lesions. The very small observations on the MRI from 12/24/2015 are not visible. 2. Sequela of portal hypertension including portosystemic venous collaterals and gastric varices. I personally viewed and interpreted these images and I have reviewed and approved this report. Normal [facility] Duplex ultrasound of carotid artery reportOrdered By: Kirk Fernandez on 05-05-2025 Study report [facility] [address] [place] [address] Carotid Duplex Ultrasound 05/02/25 0907 MR#: [id number] Acct: [id number] Name: HUFFMANREGINALDO NUÑEZ Rep #:[id number] : 1970 54 From: Kirk Martínez Attending Dr: Dr. Robb Paulson MD Status: REG CLI Ordering Dr: Robb Paulson MD Date: 05/02/25 Location: [facility] Sex: M C Admitted: Reason For Study Reason For Study: Rt Carotid Bruit Rt. Velocities/BP Lt. Velocities/BP Prox CCA 63/5 cm/sec. Prox CCA 89/13 cm/sec. Mid CCA 77/11 cm/sec. Mid CCA 82/14 cm/sec. Dist CCA 66/10 cm/sec. Dist CCA 88/14 cm/sec. Prox ICA 49/10 cm/sec. Prox ICA 62/11 cm/sec. Mid ICA 76/20 cm/sec. Mid ICA 62/17 cm/sec. Dist ICA 73/21 cm/sec. Dist ICA 59/15 cm/sec. Rt. ICA/CCA = 1.0. Lt. ICA/CCA = 0.8. Prox ECA 84/3 cm/sec. Prox ECA 83/4 cm/sec. Rt. Vert. 75/15 cm/sec. Lt. Vert. 79/20 cm/sec. Right Extracranial There is intimal thickening but no significant atherosclerotic plaque noted in the right common carotid artery. There is intimal thickening but no significant atherosclerotic plaque noted in the right internal carotid artery. There is no significant atherosclerotic plaque noted in the right external carotid artery. Antegrade flow is noted in the right vertebral artery. Left Extracranial There is intimal thickening but no significant atherosclerotic plaque noted in the left common carotid artery. There is intimal thickening but no significant atherosclerotic plaque noted in the left internal carotid artery. There is no significant atherosclerotic plaque noted in the left external carotid artery. Antegrade flow is noted in the left vertebral artery. Procedure Carotid Duplex [id number]. This is a Carotid Duplex examination using B-mode, color flow and specral Doppler. Exam performed in department. VL/Carotid Duplex Ultrasound Interpretation Summary Normal right extracranial internal carotid. Normal left extracranial internal carotid. Patent and antegrade vertebrals bilaterally. Ordering Physician: Robb Paulson Referring Physician: Kimberlyn East Performed By: Tabatha Cadet, JUSTA, RVT 05/05/25 1227 Date _ Kirk Fernandez MD CC: Dr. Kimberlyn East MD; Dr. Robb Paulson MD ~ Date Dictated: 05/02/25906 Date Transcribed: 05/05/251226 [employer] Team Member: Signed [facility] Work Phone: Anion gap in Serum or Plasma Ordered By: Kimberlyn East on 05-02-2025 Anion gap [Moles/Vol] 14 mmol/L 5-15 [facility] BUN/creatinine ratioOrdered By: Kimberlyn East on 05-02-2025 Urea nitrogen/Creatinine [Mass ratio] 5.5 mg/mg Low 10-20 [facility] Bilirubin, totalOrdered By: Kimberlyn East on 05-02-2025 Bilirubin [Mass/Vol] 0.41 mg/dL 0.00-1.30 [facility] CBC-Complete Blood Cnt No Di ffon 05-02-2025 Erythrocyte distribution width (RBC) [Ratio] 16.3 % High 11.6-14.6 [facility] Comment on above: Order Comment: Order Date: 04/25/25Order Info: [id number] - CBC Performed By: #### L 500.4100, L500.4050, L501.9910, L100.0500 ####[facility] [id number] [place], [place], [id number] Hematocrit (Bld) [Volume fraction] 29.7 % Low 40-54 [facility] Comment on above: Order Comment: Order Date: 04/25/25Order Info: [id number] - CBC Performed By: #### L 500.4100, L500.4050, L501.9910, L100.0500 ####[facility] [id number] [place], [address] Hemoglobin (Bld) [Mass/Vol] 10.4 g/dL Low 13.0-16.5 [facility] Comment on above: Order Comment: Order Date: 04/25/25Order Info: [id number] - CBC Performed By: #### L 500.4100, L500.4050, L501.9910, L100.0500 ####[facility] [address] [place], [address] MCH (RBC) [Entitic mass] 35.1 pg High 27.0-32.0 [facility] Comment on above: Order Comment: Order Date: 04/25/25Order Info: [id number] - CBC Performed By: #### L 500.4100, L500.4050, L501.9910, L100.0500 ####[facility] [address] [place], [address] MCHC (RBC) [Mass/Vol] 35.0 g/dL Normal 32-36 [facility] Comment on above: Order Comment: Order Date: 04/25/25Order Info: [id number] - CBC Performed By: #### L 500.4100, L500.4050, L501.9910, L100.0500 ####[facility] [address] [place], [address] MCV (RBC) [Entitic vol] 100.3 fL High 80-94 [facility] Comment on above: Order Comment: Order Date: 04/25/25Order Info: [id number] - CBC Performed By: #### L 500.4100, L500.4050, L501.9910, L100.0500 ####[facility] [address] [place], [address] Platelet mean volume (Bld) [Entitic vol] 10.6 fL Normal 6.2-12.0 [facility] Comment on above: Order Comment: Order Date: 04/25/25Order Info: [id number] - CBC Performed By: #### L 500.4100, L500.4050, L501.9910, L100.0500 ####[facility] [address] [place], [address] Platelets (Bld) [#/Vol] 137 10*3/uL Low 150-450 [facility] Comment on above: Order Comment: Order Date: 04/25/25Order Info: [id number] - CBC Performed By: #### L 500.4100, L500.4050, L501.9910, L100.0500 ####[facility] [address] [place], [address] RBC (Bld) [#/Vol] 2.96 10*6/uL Low 4.6-6.2 [facility] Comment on above: Order Comment: Order Date: 04/25/25Order Info: [id number] - CBC Performed By: #### L 500.4100, L500.4050, L501.9910, L100.0500 ####[facility] [address] [place], [address] RDW SD 60.0 fl High 35.1-43.9 [facility] Comment on above: Order Comment: Order Date: 04/25/25Order Info: [id number] - CBC Performed By: #### L 500.4100, L500.4050, L501.9910, L100.0500 ####[facility] [address] [place], [address] WBC (Bld) [#/Vol] 4.0 10*3/uL Low 4.4-11.0 [facility] Comment on above: Order Comment: Order Date: 04/25/25Order Info: [id number] - CBC Performed By: #### L 500.4100, L500.4050, L501.9910, L100.0500 ####[facility] [address] [place], [address] Calculated very low density lipoprotein (VLDL) cholesterol measurementOrdered By: Kimberlyn East on 05-02-2025 Calculated very low density lipoprotein (VLDL) cholesterol measurement 83 mg/dL High 5-40 [facility] Carbon dioxide, total [Moles /volume] in Central venous bloodOrdered By: Kimberlyn East on 05-02-2025 CO2 [Moles/Vol] 25.9 mmol/L 21.0-32.0 [facility] Carotid Duplex Ultrasoundon 05-02-2025 Carotid Duplex Ultrasound Normal [facility] Chloride assayOrdered By: Estephanie East on 05-02-2025 Chloride [Moles/Vol] 95 mmol/L Low 98-108 [facility] Comprehensive Metabolic Prof ilon 05-02-2025 Albumin [Mass/Vol] 4.3 g/dL Normal 3.5-5.0 [facility] Comment on above: Order Comment: Order Date: 04/25/25Order Info: [id number] - CMPOrder Info: [id number] - LIPIDOrder Info: [id number] - PSA Performed By: #### L 500.4100, L500.4050, L501.9910, L100.0500 ####[facility] [address] [place], [address] Albumin/Globulin [Mass ratio] 1.4 {ratio} Normal 0.9-2.4 [facility] Comment on above: Order Comment: Order Date: 04/25/25Order Info: [id number] - CMPOrder Info: [id number] - LIPIDOrder Info: [id number] - PSA Performed By: #### L 500.4100, L500.4050, L501.9910, L100.0500 ####[facility] [address] [place], [address] ALK PHOS 114 U/L Normal 40-129 [facility] Comment on above: Order Comment: Order Date: 04/25/25Order Info: [id number] - CMPOrder Info: [id number] - LIPIDOrder Info: [id number] - PSA Performed By: #### L 500.4100, L500.4050, L501.9910, L100.0500 ####[facility] [address] [place], [address] ALT [Catalytic activity/Vol] 8 U/L Normal <=46 [facility] Comment on above: Order Comment: Order Date: 04/25/25Order Info: [id number] - CMPOrder Info: [id number] - LIPIDOrder Info: [id number] - PSA Performed By: #### L 500.4100, L500.4050, L501.9910, L100.0500 ####[facility] [address] [place], [address] AST [Catalytic activity/Vol] 11 U/L Normal <=37 [facility] Comment on above: Order Comment: Order Date: 04/25/25Order Info: [id number] - CMPOrder Info: [id number] - LIPIDOrder Info: [id number] - PSA Performed By: #### L 500.4100, L500.4050, L501.9910, L100.0500 ####[facility] [address] [place], [address] Bilirubin [Mass/Vol] 0.41 mg/dL Normal 0.00-1.30 [facility] Comment on above: Order Comment: Order Date: 04/25/25Order Info: [id number] - CMPOrder Info: [id number] - LIPIDOrder Info: [id number] - PSA Performed By: #### L 500.4100, L500.4050, L501.9910, L100.0500 ####[facility] [address] [facility] [place], [address] BUN/CRE 5.5 RATIO Low 10-20 [facility] Comment on above: Order Comment: Order Date: 04/25/25Order Info: [id number] - CMPOrder Info: [id number] - LIPIDOrder Info: [id number] - PSA Performed By: #### L 500.4100, L500.4050, L501.9910, L100.0500 ####[facility] [address] [place], [address] Calcium [Mass/Vol] 9.0 mg/dL Normal 7.6-11.0 [facility] Comment on above: Order Comment: Order Date: 04/25/25Order Info: [id number] - CMPOrder Info: [id number] - LIPIDOrder Info: [id number] - PSA Performed By: #### L 500.4100, L500.4050, L501.9910, L100.0500 ####[facility] [address] [place], [address] Chloride [Moles/Vol] 95 mmol/L Low 98-108 [facility] Comment on above: Order Comment: Order Date: 04/25/25Order Info: [id number] - CMPOrder Info: [id number] - LIPIDOrder Info: [id number] - PSA Performed By: #### L 500.4100, L500.4050, L501.9910, L100.0500 ####[facility] [address] [place], [address] CO2 [Moles/Vol] 25.9 mmol/L Normal 21.0-32.0 [facility] Comment on above: Order Comment: Order Date: 04/25/25Order Info: [id number] - CMPOrder Info: [id number] - LIPIDOrder Info: [id number] - PSA Performed By: #### L 500.4100, L500.4050, L501.9910, L100.0500 ####[facility] [address] [facility] [place], [address] Creatinine [Mass/Vol] 5.57 mg/dL High 0.70-1.20 [facility] Comment on above: Order Comment: Order Date: 04/25/25Order Info: [id number] - CMPOrder Info: - LIPIDOrder Info: [id number] - PSA Performed By: #### L 500.4100, L500.4050, L501.9910, L100.0500 ####[facility] [address] [place], [address] GAP 14 Normal 5-15 [facility] Comment on above: Order Comment: Order Date: 04/25/25Order Info: [id number] - CMPOrder Info: - LIPIDOrder Info: [id number] - PSA Performed By: #### L 500.4100, L500.4050, L501.9910, L100.0500 ####[facility] [address] [place], [address] GFR/1.73 sq M.predicted among non-blacks MDRD (S/P/Bld) [Vol rate/Area] 11 mL/min/{1.73_m2} Low >60 [facility] Comment on above: Order Comment: Order Date: 04/25/25Order Info: [id number] - CMPOrder Info: - LIPIDOrder Info: [id number] - PSA Result Comment: mL/m in/1.73m2 CKD-EPI Creatinine Equation (2020) Performed By: #### L 500.4100, L500.4050, L501.9910, L100.0500 ####[facility] [address] [place], [address] Globulin (S) [Mass/Vol] 3.1 g/dL Normal 2.2-4.2 [facility] Comment on above: Order Comment: Order Date: 04/25/25Order Info: [id number] - CMPOrder Info: - LIPIDOrder Info: [id number] - PSA Performed By: #### L 500.4100, L500.4050, L501.9910, L100.0500 ####[facility] [address] [place], [address] Glucose [Mass/Vol] 203 mg/dL High 70-99 [facility] Comment on above: Order Comment: Order Date: 04/25/25Order Info: [id number] - CMPOrder Info: [id number] - LIPIDOrder Info: [id number] - PSA Performed By: #### L 500.4100, L500.4050, L501.9910, L100.0500 ####[facility] [address] [place], [address] Potassium [Moles/Vol] 4.7 mmol/L Normal 3.3-5.1 [facility] Comment on above: Order Comment: Order Date: 04/25/25Order Info: [id number] - CMPOrder Info: [id number] - LIPIDOrder Info: [id number] - PSA Performed By: #### L 500.4100, L500.4050, L501.9910, L100.0500 ####[facility] [address] [place], [address] Sodium [Moles/Vol] 135 mmol/L Normal 133-145 [facility] Comment on above: Order Comment: Order Date: 04/25/25Order Info: [id number] - CMPOrder Info: [id number] - LIPIDOrder Info: [id number] - PSA Performed By: #### L 500.4100, L500.4050, L501.9910, L100.0500 ####[facility] [address] [place], [address] T PROT 7.4 g/dL Normal 5.9-8.4 [facility] Comment on above: Order Comment: Order Date: 04/25/25Order Info: [id number] - CMPOrder Info: [id number] - LIPIDOrder Info: [id number] - PSA Performed By: #### L 500.4100, L500.4050, L501.9910, L100.0500 ####[facility] [address] [place], [address] Urea nitrogen [Mass/Vol] 30 mg/dL High 4-19 [facility] Comment on above: Order Comment: Order Date: 04/25/25Order Info: [id number] - CMPOrder Info: [id number] - LIPIDOrder Info: [id number] - PSA Performed By: #### L 500.4100, L500.4050, L501.9910, L100.0500 ####[facility] [address] [place], [address] Erythrocyte distribution wid th ratioOrdered By: Kimberlyn East on 05-02-2025 Erythrocyte distribution width (RBC) [Ratio] 16.3 % High 11.6-14.6 [facility] Erythrocyte distribution wid th standard deviationOrdered By: Kimberlyn East on 05-02-2025 Erythrocyte distribution width (RBC) [Ratio] 60.0 fl High 35.1-43.9 [facility] Glomerular filtration rate ( GFR) estimation/1.73 sq m using serum, plasma, or whole bOrdered By: Kimberlyn East on 05-02-2025 GFR/1.73 sq M.predicted among non-blacks MDRD (S/P/Bld) [Vol rate/Area] 11 mL/min/{1.73_m2} Low >60 [facility] Comment on above: mL/min/1.73m2 CKD-EP I Creatinine Equation (2020) Hematocrit Auto (Bld) [Volum e fraction]Ordered By: Kimberlyn East on 05-02-2025 Hematocrit (Bld) [Volume fraction] 29.7 % Low 40-54 [facility] Hemoglobin A1con 05-02-2025 HbA1c (Bld) [Mass fraction] 7.0 % High <=5.6 [facility] Comment on above: Order Comment: Order Date: 04/25/25Order Info: [id number] - A1C Result Comment: Norm al < 5.7 % Prediabetic 5.7 - 6.4 % Diabetic >or= 6.5 % Please note range changes. Performed By: #### L 501.9908 ####[facility] [address] [place], [place], [id number] Hemoglobin A1c percentageOrd ered By: Kimberlyn East on 05-02-2025 HbA1c (Bld) [Mass fraction] 7.0 % High <5.7 [facility] Comment on above: Normal < 5.7 % Predi abetic 5.7 - 6.4 % Diabetic >or= 6.5 % Please note range changes. Hemoglobin measurementOrdere d By: Kimberlyn East on 05-02-2025 Hemoglobin (Bld) [Mass/Vol] 10.4 g/dL Low 13.0-16.5 [facility] LDL calc ser/plasOrdered By: Kimberlyn East on 05-02-2025 Cholesterol in LDL [Mass/Vol] 50 mg/dL [facility] Comment on above: Abtrswzwpu=541-156 m g/dL & Higher Kidd=167 mg/dL or greaterFriedwald Equation for LDL-C Laboratory - Chemistry and C hemistry - challengeOrdered By: Kimberlyn East on 05-02-2025 AST [Catalytic activity/Vol] 11 U/L <38 [facility] Lipid Profileon 05-02-2025 CHOL:HDL 4.60 Normal [facility] Comment on above: Order Comment: Order Date: 04/25/25Order Info: [id number] - CMPOrder Info: [id number] - LIPIDOrder Info: [id number] - PSA Performed By: #### L 500.4100, L500.4050, L501.9910, L100.0500 ####[facility] [address] [place], [place], [address] Cholesterol [Mass/Vol] 169 mg/dL Normal <=200 [facility] Comment on above: Order Comment: Order Date: 04/25/25Order Info: [id number] - CMPOrder Info: [id number] - LIPIDOrder Info: [id number] - PSA Result Comment: Chol esterol level, Desirable <200 mg/dLBorderline high cholesterol 200-239 mg/dLHigh cholesterol >=240 mg/dLRecommendations of the NCEP Adult Treatment Panel for thefollowing risk-cutoff thresholds for the [place] Americanpopulation. Performed By: #### L 500.4100, L500.4050, L501.9910, L100.0500 ####[facility] [address] [place], [address] Cholesterol in HDL [Mass/Vol] 37 mg/dL Low [facility] Comment on above: Order Comment: Order Date: 04/25/25Order Info: [id number] - CMPOrder Info: [id number] - LIPIDOrder Info: [id number] - PSA Result Comment: Nikky onal Cholesterol Education Program (NCEP) guidelines:<40 mg/dL: Low HDL-cholesterol (major risk factor for CHD)>= 60 mg/dL: High HDL-cholesterol (negative risk factor forCHD)HDL-cholesterol is affected by a number of factors, e.g.smoking, exercise, hormones, sex and age. Performed By: #### L 500.4100, L500.4050, L501.9910, L100.0500 ####[facility] [address] [place], [address] Cholesterol in LDL [Mass/Vol] 50 mg/dL Normal [facility] Comment on above: Order Comment: Order Date: 04/25/25Order Info: [id number] - CMPOrder Info: - LIPIDOrder Info: [id number] - PSA Result Comment: Bord qoukvq=054-145 mg/dL Higher Fwnw=276 mg/dL or greaterFriedwald Equation for LDL-C Performed By: #### L 500.4100, L500.4050, L501.9910, L100.0500 ####[facility] [address] [place], [address] Cholesterol in VLDL [Mass/Vol] 83 mg/dL High 5-40 [facility] Comment on above: Order Comment: Order Date: 04/25/25Order Info: [id number] - CMPOrder Info: - LIPIDOrder Info: [id number] - PSA Performed By: #### L 500.4100, L500.4050, L501.9910, L100.0500 ####[facility] [address] [place], [address] Triglyceride [Mass/Vol] 414 mg/dL High [facility] Comment on above: Order Comment: Order Date: 04/25/25Order Info: [id number] - CMPOrder Info: [id number] - LIPIDOrder Info: [id number] PSA Result Comment: The drugs N-Acetylcysteine and Metamizole may falselydepress this assay.Normal range: <150 mg/dLBorderline High: 150-199 mg/dLHigh: 200-499 mg/dLVery High: >500 mg/dL Performed By: #### L 500.4100, L500.4050, L501.9910, L100.0500 ####[facility] [address] [place], [address] MCV (mean corpuscular volume ) determinationOrdered By: Kimberlyn East on 05-02-2025 MCV (RBC) [Entitic vol] 100.3 fL High 80-94 [facility] Mean corpuscular hemoglobin (MCH) determinationOrdered By: Kimberlyn East on 05-02-2025 MCH (RBC) [Entitic mass] 35.1 pg High 27.0-32.0 [facility] Mean corpuscular hemoglobin concentration (MCHC) determinationOrdered By: Kimberlyn East on 05-02-2025 MCHC (RBC) [Mass/Vol] 35.0 g/dL 32-36 [facility] Mean platelet volume determi nationOrdered By: [facility] on 05-02-2025 Platelet mean volume (Bld) [Entitic vol] 10.6 fL 6.2-12.0 [facility] PSA,Total - Annual Screenon 05-02-2025 PSA,TOT SCREEN 0.64 ng/mL Normal 0.02-4.00 [facility] Comment on above: Order Comment: Order Date: 04/25/25Order Info: [id number] - CMPOrder Info: [id number] - LIPIDOrder Info: [id number] PSA Result Comment: This test was performed using the [employer] tPSAmethod. Measured values of a patient??sample can varydepending on the testing procedure used. PSA valuesdetermined on patient samples by different testingprocedures cannot be used interchangeably. If there is achange in PSA assays while monitoring therapy, sequentialtesting should be performed to confirm baseline values. Performed By: #### L 500.4100, L500.4050, L501.9910, L100.0500 ####[facility] [address] [place], [address] Platelet countOrdered By: Estephanie East on 05-02-2025 Platelets (Bld) [#/Vol] 137 10*3/uL Low 150-450 [facility] Potassium measurement (mass/ volume)Ordered By: Kimberlyn East on 05-02-2025 Potassium (Unsp spec) [Mass/Vol] 4.7 mmol/L 3.3-5.1 [facility] RBC Auto (Bld) [#/Vol]Ordere d By: Kimberlyn East on 05-02-2025 RBC (Bld) [#/Vol] 2.96 10*6/uL Low 4.6-6.2 [facility] Screening total cholesterol/ high density lipoprotein (HDL) cholesterol ratioOrdered By: Kimberlyn East on 05-02-2025 Cholesterol.total/Arin sterol in HDL [Mass ratio] 4.60 {ratio} [facility] Serum creatinine measurement (mass/volume)Ordered By: Kimberlyn East on 05-02-2025 Creatinine [Mass/Vol] 5.57 mg/dL High 0.70-1.20 [facility] Serum globulin measurementOr dered By: Kimberlyn East on 05-02-2025 Globulin (S) [Mass/Vol] 3.1 g/dL 2.2-4.2 [facility] Serum glucose measurement (m ass/volume)Ordered By: Kimberlyn East on 05-02-2025 Glucose [Mass/Vol] 203 mg/dL High 70-99 [facility] Serum or plasma alanine meng otransferase (ALT) measurementOrdered By: Kimberlyn East on 05-02-2025 ALT [Catalytic activity/Vol] 8 U/L <47 [facility] Serum or plasma albumin abhi urement (mass/volume)Ordered By: Kimberlyn East on 05-02-2025 Albumin [Mass/Vol] 4.3 g/dL 3.5-5.0 [facility] Serum or plasma albumin/glob ulin mass ratioOrdered By: Kimberlyn East on 05-02-2025 Albumin/Globulin [Mass ratio] 1.4 {ratio} 0.9-2.4 [facility] Serum or plasma alkaline jaspreet sphatase measurementOrdered By: Kimberlyn East on 05-02-2025 ALP [Catalytic activity/Vol] 114 U/L 40-129 [facility] Serum or plasma calcium abhi urement (mass/volume)Ordered By: Kimberlyn East on 05-02-2025 Calcium [Mass/Vol] 9.0 mg/dL 7.6-11.0 [facility] Serum or plasma cholesterol in HDL measurement (mass/volume)Ordered By: Kimberlyn East on 05-02-2025 Cholesterol in HDL [Mass/Vol] 37 mg/dL Low >40 [facility] Comment on above: National Cholesterol Education Program (NCEP) guidelines:<40 mg/dL: Low HDL-cholesterol (major risk factor for CHD)>= 60 mg/dL: High HDL-cholesterol (negative risk factor for CHD)HDL-cholesterol is affected by a number of factors, e.g. smoking, exercise, hormones, sex and age. Serum or plasma cholesterol measurement (mass/volume)Ordered By: Kimberlyn East on 05-02-2025 Cholesterol [Mass/Vol] 169 mg/dL <201 [facility] Comment on above: Cholesterol level, D esirable <200 mg/dLBorderline high cholesterol 200-239 mg/dLHigh cholesterol >=240 mg/dLRecommendations of the NCEP Adult Treatment Panel for the following risk-cutoff thresholds for the [place] population. Serum or plasma urea nitroge n measurement (mass/volume)Ordered By: Kimberlyn East on 05-02-2025 Urea nitrogen [Mass/Vol] 30 mg/dL High 4-19 [facility] Sodium levelOrdered By: Aura East on 05-02-2025 Sodium [Moles/Vol] 135 mmol/L 133-145 [facility] Total proteinOrdered By: Lynn East on 05-02-2025 Protein [Mass/Vol] 7.4 g/dL 5.9-8.4 [facility] Triglycerides measurementOrd ered By: Kimberlyn East on 05-02-2025 Triglyceride [Mass/Vol] 414 mg/dL High <199 [facility] Comment on above: The drugs N-Acetylcy steine and Metamizole may falsely depress this assay. Normal range: <150 mg/dLBorderline High: 150-199 mg/dLHigh: 200-499 mg/dLVery High: >500 mg/dL White blood cell (WBC) count Ordered By: Kimberlyn East on 05-02-2025 WBC (Bld) [#/Vol] 4.0 10*3/uL Low 4.4-11.0 [facility] AFP TUMOR MARKERon AFP Tumor Marker <2.2 Normal <8.1 [facility] Comment on above: Result Comment: This test was performed on the [employer] IM Immunoassay platform by Siem[employer] which is a two-site sandwich chemiluminescent immunoassay. It is important to note that assays using different manufacturers and/or methods may not be comparable. Performed By: #### A RUMA #### [facility] (DEFAULT) [address] [place] [address] CA 19-9on 04-23-2025 Cancer Ag 19-9 Qn 16.15 [arb'U]/mL NINF - 37.00 U/mL [facility] Comment on above: This test was perfor med on the Siemens Atellica IM Immunoassay platform which is a 2-step sandwich chemiluminescent immunoassay. It is important to note that assays using different manufacturers and/or methods may not be comparable. Interpretation and review of laboratory results Normal [facility] CA 19-9 16.15 U/mL Normal <=37.00 [facility] Comment on above: Result Comment: This test was performed on the Siemens Atellica IM Immunoassay platform which is a 2-step sandwich chemiluminescent immunoassay. It is important to note that assays using different manufacturers and/or methods may not be comparable. Performed By: #### C A199 #### [facility] (DEFAULT) [facility] [place] [id number] HEPATIC FUNCTION PANELon Albumin [Mass/Vol] 4.8 g/dL 3.5 - 5.0 g/dL [facility] ALP [Catalytic activity/Vol] 100 U/L 32 - 126 U/L [facility] ALT [Catalytic activity/Vol] 5 U/L Low 10 - 52 U/L [facility] AST [Catalytic activity/Vol] 8 U/L Low 10 - 39 U/L [facility] Bilirubin [Mass/Vol] 0.4 mg/dL NINF - 1.5 mg/dL [facility] Bilirubin.direct [Mass/Vol] 0.1 mg/dL NINF - 0.3 mg/dL [facility] Interpretation and review of laboratory results Abnormal [facility] Protein [Mass/Vol] 8.1 g/dL 6.4 - 8.3 g/dL [facility] Albumin [Mass/Vol] 4.8 g/dL Normal 3.5-5.0 [facility] Comment on above: Performed By: #### A RUMA #### [facility] (DEFAULT) [address] [place] [address] ALP [Catalytic activity/Vol] 100 U/L Normal 32-126 [facility] Comment on above: Performed By: #### A RUMA #### [facility] (DEFAULT) [address] [place] [address] ALT [Catalytic activity/Vol] 5 U/L Low 10-52 [facility] Comment on above: Performed By: #### A RUMA #### [facility] (DEFAULT) [address] [place] [address] AST [Catalytic activity/Vol] 8 U/L Low 10-39 [facility] Comment on above: Performed By: #### A RUMA #### [facility] (DEFAULT) [address] [place] [address] Bilirubin [Mass/Vol] 0.4 mg/dL Normal <1.5 [facility] Comment on above: Performed By: #### A RUMA #### [facility] (DEFAULT) [address] [address] Bilirubin.indirect [Mass/Vol] 0.1 mg/dL Normal <0.3 [facility] Comment on above: Performed By: #### A RUMA #### [facility] (DEFAULT) [address] [address] Protein [Mass/Vol] 8.1 g/dL Normal 6.4-8.3 [facility] Comment on above: Performed By: #### A RUMA #### [facility] (DEFAULT) [address] [address] Neurology Visit Reporton Neurology Visit Report Normal [facility] AV Fistula/Dialysis Graft Sc anon 03-03-2025 AV Fistula/Dialysis Graft Scan Normal [facility] Arterial study reportOrdered By: Kirk Fernandez on 03-03-2025 Noninvasive arteriosclerosis study report [facility] [place] [facility] [address] [place] [address] AV Fistula/Dialysis Graft Scan 03/03/25 0905 MR#: [id number] Acct: [id number] Name: REGINALDO HUFFMAN Rep #:[id number] : 1970 54 From: Kirk Martínez Attending Dr: BLANCA Ellison Stat us: REG CLI Ordering Dr: Cynthia Hutchins Date: Location: [facility] Sex: M C Admitted: Reason For Study Reason For Study: Prolonged bleedeing RIGHT Inflow, 391.9/195.3 cm/sec. Inflow, 2523 ml/min. Anastamosis, 494.9/261.1 cm/sec. Anastomosis, 1007 ml/min. Prox Graft, 218.3/96.7 cm/sec. Prox Graft, 3441 ml/min. Mid Graft, 253.2/143.6 cm/sec. Mid Graft, 3754 ml/min. Dist Graft, 342.1/198.1 cm/sec. Dist Graft, 2920 ml/min. Outflow, 183/105.3 cm/sec. Outflow, 1602 ml/min. VL/AV Fistula/Dialysis Graft Scan Interpretation Summary Right upper extremity fistula patent with normal velocities, no evidence of stenosis and adequate flow volume/caliber throughout. Ordering Physician: Cynthia Hutchins Referring Physician: Kimberlyn East Performed By: Brea Ram RVT 03/03/25 1241 Date _ Kirk Fernandez MD CC: BLANCA Ellison; Dr. Kimberlyn East MD ~ Date Dictated: 03/03/25904 Date Transcribed: 03/03/25 1241 [employer] Team Member: Signed [facility] Work Phone: MR/BMS.BVSon 02-20-2025 MR/BMS.BVS Normal [facility] HEPATIC WEDGE PRESSURE/VENOo n 01-28-2025 HEPATIC WEDGE PRESSURE/VENO Examination: IR TRANSCATHETER BIOPSY, IR HEPATIC WEDGE PRESSURE/VENO, 01/27/2025 13:22 PM Clinical History: Male, 54 years old with history of K74.00:Hepatic fibrosis (accession [id number]), K74.00:Hepatic fibrosis (accession [id number]). Attending physician(s): Marshal Paris MD Trainee physician(s): None Consent: A thorough discussion of the risks, benefits, and alternatives of the procedure, and if applicable, moderate sedation, was carried out with the patient. They were encouraged to ask questions. The questions were answered. They verbalized understanding. A written consent was then signed. Medical Review: The patient's history, physical examination, medicines, and allergies were reviewed in the electronic medical record and reconciled to the proposed procedure/treatment. Time out: A multi-component timeout was performed prior to starting the procedure and then at the end of the procedure using the departmental protocol. Patient position: Supine Anesthesia: Lidocaine 2% local infiltration. Sedation: Intravenous moderate sedation was administered and monitored by a dedicated RN under direct supervision of Dr. Paris. The intraprocedural procedural sedation time was 26 minutes. Medicines: 12:38 PM 01/27/25 fentaNYL (SUBLIMAZE) injection 0-300 mcg Ordered and Given 50 mcg Given Rate: 0 Route: Intravenous; 12:38 PM 01/27/25 midazolam (VERSED) injection 0-10 mg Ordered and Given 1 mg Given Rate: 0 Route: Intravenous; 12:59 PM 01/27/25 fentaNYL (SUBLIMAZE) injection 0-300 mcg Given 25 mcg Given Rate: 0 Route: Intravenous; 1:00 PM 01/27/25 midazolam (VERSED) injection 0-10 mg Given 0.5 mg Given Rate: 0 Route: Intravenous; 1:07 PM 01/27/25 Lidocaine 2 % injection Ordered and Given 6 mL Given Rate: 0 Route: Other; 1:08 PM 01/27/25 Iohexol (OMNIPAQUE) 300 MG/ML vial 50 mL Given 10 mL Given Rate: 0 Route: Intravenous; Image Guidance: Ultrasound and Fluoroscopy Fluoroscopy Time: 3.5 minutes Radiation Dose: 9 mGy Contrast: Omnipaque 300, and cc Comparison: CT abdomen and pelvis December 11, 2024 Procedure: The procedure room personnel used personal protective equipment. The operators used sterile gloves and if indicated, sterile gowns. The surgical site was prepped with chlorhexidine gluconate and draped in the maximal applicable sterile fashion. After local anesthesia and dermatotomy, the right internal jugular vein was accessed with a micropuncture needle under real-time ultrasonographic guidance. The ultrasound showed a patent and compressible internal jugular vein. Pertinent ultrasound images were stored to the PACS. A wire was advanced into the venous system under fluoroscopic guidance. Over the wire a micropuncture sheath was placed in exchange for the needle. Through the sheath, a 035 wire was advanced into the inferior vena cava under fluoroscopic guidance. Over the wire, following sequential dilatation, a 10 Palestinian sheath was placed. Over the wire, using a multipurpose catheter, selection of the right hepatic vein was performed. This was followed by performance of right hepatic vein venography. It confirmed the location of the catheter in the right hepatic vein. Over the wire, the catheter was exchanged over. The balloon catheter was used to perform free hepatic venous pressure. The same catheter was then inflated and wedged into the hepatic vein and wedge hepatic venous pressure performed. The Side arm of the sheath was used to perform right atrial pressure. Over a stiff wire the catheter was withdrawn. Liver access and biopsy set was placed over the wire with the tip of the metal guide in the central part of the right hepatic vein. Through the metal guide, the transjugular liver biopsy needle was advanced and a core biopsy performed using the standard technique. Multiple additional cores were performed until satisfactory specimens were collected. The biopsy guide was withdrawn. The sheath was withdrawn. Hemostasis was secured using manual compression. An aseptic dressing was applied. Sponge and needle counts were documented at the beginning and end of the procedure and were all correct. The patient tolerated the procedure well. Complications: None immediate. The patient was transferred to the recovery area and discharged from the department in stable condition. Result: Total number of cores collected was 3. The cores were submitted to the laboratory in formalin. Pressures: Free hepatic vein: 10 mmHg Wedged hepatic vein: 13 mmHg Right atrium: 8-9 mmHg IVC: 10 mmHg Hepatic vein pressure gradient: 3 mmHg Corrected sinusoidal pressure: 3 mmHg Device : Argon LAB kit. Estimated Blood Loss: Minimal IMPRESSION: Successful transjugular liver biopsy and pressures. 3 cores were obtained and sent to the lab. No significant abnormality of the imaged hepatic vein. The hepatic vein pressure gradient is normal suggestive of absence of portal hypertension. Dr. Deann (more content not included)... Normal [facility] TRANSCATHETER BIOPSYon 01-28 TRANSCATHETER BIOPSY Examination: IR TRANSCATHETER BIOPSY, IR HEPATIC WEDGE PRESSURE/VENO, 01/27/2025 13:22 PM Clinical History: Male, 54 years old with history of K74.00:Hepatic fibrosis (accession [id number]), K74.00:Hepatic fibrosis (accession [id number]). Attending physician(s): Marshal Paris MD Trainee physician(s): None Consent: A thorough discussion of the risks, benefits, and alternatives of the procedure, and if applicable, moderate sedation, was carried out with the patient. They were encouraged to ask questions. The questions were answered. They verbalized understanding. A written consent was then signed. Medical Review: The patient's history, physical examination, medicines, and allergies were reviewed in the electronic medical record and reconciled to the proposed procedure/treatment. Time out: A multi-component timeout was performed prior to starting the procedure and then at the end of the procedure using the departmental protocol. Patient position: Supine Anesthesia: Lidocaine 2% local infiltration. Sedation: Intravenous moderate sedation was administered and monitored by a dedicated RN under direct supervision of Dr. Paris. The intraprocedural procedural sedation time was 26 minutes. Medicines: 12:38 PM 01/27/25 fentaNYL (SUBLIMAZE) injection 0-300 mcg Ordered and Given 50 mcg Given Rate: 0 Route: Intravenous; 12:38 PM 01/27/25 midazolam (VERSED) injection 0-10 mg Ordered and Given 1 mg Given Rate: 0 Route: Intravenous; 12:59 PM 01/27/25 fentaNYL (SUBLIMAZE) injection 0-300 mcg Given 25 mcg Given Rate: 0 Route: Intravenous; 1:00 PM 01/27/25 midazolam (VERSED) injection 0-10 mg Given 0.5 mg Given Rate: 0 Route: Intravenous; 1:07 PM 01/27/25 Lidocaine 2 % injection Ordered and Given 6 mL Given Rate: 0 Route: Other; 1:08 PM 01/27/25 Iohexol (OMNIPAQUE) 300 MG/ML vial 50 mL Given 10 mL Given Rate: 0 Route: Intravenous; Image Guidance: Ultrasound and Fluoroscopy Fluoroscopy Time: 3.5 minutes Radiation Dose: 9 mGy Contrast: Omnipaque 300, and cc Comparison: CT abdomen and pelvis December 11, 2024 Procedure: The procedure room personnel used personal protective equipment. The operators used sterile gloves and if indicated, sterile gowns. The surgical site was prepped with chlorhexidine gluconate and draped in the maximal applicable sterile fashion. After local anesthesia and dermatotomy, the right internal jugular vein was accessed with a micropuncture needle under real-time ultrasonographic guidance. The ultrasound showed a patent and compressible internal jugular vein. Pertinent ultrasound images were stored to the PACS. A wire was advanced into the venous system under fluoroscopic guidance. Over the wire a micropuncture sheath was placed in exchange for the needle. Through the sheath, a 035 wire was advanced into the inferior vena cava under fluoroscopic guidance. Over the wire, following sequential dilatation, a 10 Palestinian sheath was placed. Over the wire, using a multipurpose catheter, selection of the right hepatic vein was performed. This was followed by performance of right hepatic vein venography. It confirmed the location of the catheter in the right hepatic vein. Over the wire, the catheter was exchanged over. The balloon catheter was used to perform free hepatic venous pressure. The same catheter was then inflated and wedged into the hepatic vein and wedge hepatic venous pressure performed. The Side arm of the sheath was used to perform right atrial pressure. Over a stiff wire the catheter was withdrawn. Liver access and biopsy set was placed over the wire with the tip of the metal guide in the central part of the right hepatic vein. Through the metal guide, the transjugular liver biopsy needle was advanced and a core biopsy performed using the standard technique. Multiple additional cores were performed until satisfactory specimens were collected. The biopsy guide was withdrawn. The sheath was withdrawn. Hemostasis was secured using manual compression. An aseptic dressing was applied. Sponge and needle counts were documented at the beginning and end of the procedure and were all correct. The patient tolerated the procedure well. Complications: None immediate. The patient was transferred to the recovery area and discharged from the department in stable condition. Result: Total number of cores collected was 3. The cores were submitted to the laboratory in formalin. Pressures: Free hepatic vein: 10 mmHg Wedged hepatic vein: 13 mmHg Right atrium: 8-9 mmHg IVC: 10 mmHg Hepatic vein pressure gradient: 3 mmHg Corrected sinusoidal pressure: 3 mmHg Device : Argon LAB kit. Estimated Blood Loss: Minimal IMPRESSION: Successful transjugular liver biopsy and pressures. 3 cores were obtained and sent to the lab. No significant abnormality of the imaged hepatic vein. The hepatic vein pressure gradient is normal suggestive of absence of portal hypertension. Dr. Deann (more content not included)... Normal [facility] GLUCOSE POCon 01-27-2025 Glucose [Mass/Vol] 187 mg/dL High 70 - 179 mg/dL [facility] Interpretation and review of laboratory results Abnormal [facility] POC Sample Type VENO [facility] Test performed at address of the patient encounter. [facility] POTASSIUMon 01-27-2025 Interpretation and review of laboratory results Abnormal [facility] Potassium [Moles/Vol] 5.6 mmol/L High 3.5 - 5.0 mmol/L [facility] Potassium [Moles/Vol] 5.6 mmol/L High 3.5-5.0 [facility] Comment on above: Performed By: #### A RIGOBERTOH #### [facility] (DEFAULT) [address] [place] [address] SURG PATH REQUESTon 01-28-20 Case Report [facility] Comment on above: Result Comment: Surg ical Pathology Report Case: [id number] Authorizing Provider: Devonte James MD Collected: 01/27/2025 12:53 PM Ordering Location: [facility] Received: 01/27/2025 01:44 PM Hospital Pathologist: RYANNE Ortiz Specimen: Liver, needle/wedge biopsy Performed By: #### S URGP #### [facility] (DEFAULT) [address] [place] [address] Clinical History Clinical History: Li marylin biopsy. [facility] Comment on above: Performed By: #### S URGP #### [facility] (DEFAULT) [address] [place] [address] Gross Description Normal [facility] Comment on above: Result Comment: The specimen is received in one properly labeled container with the patient's name and accession number. A. The specimen is designated liver biopsy and consists of four cores of gunn-red soft tissue which range from 0.4 to 1.7 cm in length with an average diameter of less than 0.1 cm. TE 2 Lab Use Only: JobID [id number] Grosser for this case was: Clint Cooper Performed By: #### S URGP #### [facility] (DEFAULT) [address] [place] [address] Microscopic Description Normal [facility] Comment on above: Result Comment: A mi croscopic examination was performed. All controls show appropriate reactivity. All immunohistochemistry (IHC), in situ hybridization (LISETH), and histochemical tests were developed by and are performed at the [facility] Clinical Laboratory, Histology and IHC Lab, [address] [place] [address]. All Immunofluorescent (IF) tests were developed by and are performed at the [facility] Clinical Laboratory, Renal Division, [address] [place] [address]. All tests reported here, except for PD-L1, have not been cleared by or approved by the US Food and Drug Administration (FDA). The laboratory is regulated under CLIA as qualified to perform high-complexity testing. The tests are used for clinical purposes. They should not be regarded as investigational or for research. Performed By: #### S URGP #### [facility] (DEFAULT) [address] [place] [address] Pathologic Diagnosis Normal [facility] Comment on above: Result Comment: Lizeth moran, transjugular biopsy: Hepatic parenchyma with no significant fibrosis (trichrome stain); see comment Comment: The biopsies show four fragmented cores of adequate hepatic parenchyma with preserved lobular architecture. The lobules show mildly reactive hepatocytes and foci of minimal mixed portal inflammation. Interlobular bile ducts are present and are intact. There is no significant steatosis or cholestasis (bile stain).Trichrome stain highlights patchy portal fibrosis (A1, A2) and is negative for advanced fibrosis. PAS-D stain is negative for diagnostic intracytoplasmic hyaline globules. 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 at 1705 EDT Performed By: #### S URGP #### [facility] (DEFAULT) [address] [place] [address] Professional Interpretation Performed at: Normal [facility] Comment on above: Result Comment: [facility] For Immediate Release to Patient's [facility]? Yes [address] [address] Performed By: #### S URGP #### [facility] (DEFAULT) [address] [address] KENNETH SCREEN IFAon 12-25-2024 Antinuclear Antibody, IFA Negative Normal Negative [facility] Comment on above: Performed By: #### H SVG12 #### [facility] (DEFAULT) [address] [address] ANTI MITOCHONDRIAL ANTIBODYo n 12-25-2024 Anti-Mitochondrial Antibody Negative Normal Negative [facility] Comment on above: Performed By: #### C A199 #### [facility] (DEFAULT) [address] [address] ANTI SMOOTH MUSCLE ANTIBODYo n 12-25-2024 Smooth Muscle Antibody Positive Abnormal Negative [facility] Comment on above: Performed By: #### C A199 #### [facility] (DEFAULT) [address] [address] Smooth Muscle Antibody, Quant 1:40 Abnormal (none) [facility] Comment on above: Performed By: #### C A199 #### [facility] (DEFAULT) [address] [address] FERRITINon 12-25-2024 Ferritin [Mass/Vol] 627.9 ng/mL High 10.5 - 3 07.3 ng/mL [facility] Interpretation and review of laboratory results Abnormal [facility] Ferritin [Mass/Vol] 627.9 ng/mL High 10.5-307.3 [facility] Comment on above: Performed By: #### F ERIB #### [facility] (DEFAULT) [address] [address] HEPATIC FUNCTION PANELon Albumin [Mass/Vol] 4.5 g/dL 3.5 - 5.0 g/dL [facility] ALP [Catalytic activity/Vol] 73 U/L 32 - 126 U/L [facility] ALT [Catalytic activity/Vol] 8 U/L Low 10 - 52 U/L [facility] AST [Catalytic activity/Vol] 11 U/L 10 - 39 U/L [facility] Bilirubin [Mass/Vol] 0.4 mg/dL NINF - 1.5 mg/dL [facility] Bilirubin.direct [Mass/Vol] 0.1 mg/dL NINF - 0.3 mg/dL [facility] Interpretation and review of laboratory results Abnormal [facility] Protein [Mass/Vol] 8 g/dL 6.4 - 8.3 g/dL [facility] Albumin [Mass/Vol] 4.5 g/dL Normal 3.5-5.0 [facility] Comment on above: Performed By: #### H SVG12 #### [facility] (DEFAULT) [address] [place] [address] ALP [Catalytic activity/Vol] 73 U/L Normal 32-126 [facility] Comment on above: Performed By: #### H SVG12 #### [facility] (DEFAULT) [address] [place] [address] ALT [Catalytic activity/Vol] 8 U/L Low 10-52 [facility] Comment on above: Performed By: #### H SVG12 #### [facility] (DEFAULT) [address] [place] [address] AST [Catalytic activity/Vol] 11 U/L Normal 10-39 [facility] Comment on above: Performed By: #### H SVG12 #### [facility] (DEFAULT) [address] [place] [address] Bilirubin [Mass/Vol] 0.4 mg/dL Normal <1.5 [facility] Comment on above: Performed By: #### H SVG12 #### [facility] (DEFAULT) [address] [place] [address] Bilirubin.indirect [Mass/Vol] 0.1 mg/dL Normal <0.3 [facility] Comment on above: Performed By: #### H SVG12 #### [facility] (DEFAULT) [address] [place] [address] Protein [Mass/Vol] 8.0 g/dL Normal 6.4-8.3 [facility] Comment on above: Performed By: #### H SVG12 #### [facility] (DEFAULT) [address] [place] [address] HEPATITIS A AB, TOTAL (IGG+I GM)Ordered By: Maxi Enriquez on 12-25-2024 HAV IgG+IgM Ql (S) Negative Negative [facility] Interpretation and review of laboratory results Normal [facility] HEPATITIS A AB, TOTAL (IGG+I GM)on 12-25-2024 Hep A Ab, (IgG+IgM) Negative Normal Negative [facility] Comment on above: Performed By: #### A LCOSU #### [facility] (DEFAULT) [address] [place] [address] IMMUNOGLOBULINS IGG IGA IGMo n 12-25-2024 IgA [Mass/Vol] 168 mg/dL 66 - 433 mg/dL [facility] IgG [Mass/Vol] 1239 mg/dL 600 - 1714 mg/dL [facility] IgM [Mass/Vol] 111 mg/dL 45 - 281 mg/dL [facility] Interpretation and review of laboratory results Normal [facility] IgA [Mass/Vol] 168 mg/dL Normal 66-433 [facility] Comment on above: Performed By: #### A RUMA #### [facility] (DEFAULT) [address] [place] [address] IgG [Mass/Vol] 1239 mg/dL Normal 600-1714 [facility] Comment on above: Performed By: #### A RUMA #### [facility] (DEFAULT) [address] [place] [address] IgM [Mass/Vol] 111 mg/dL Normal 45-281 [facility] Comment on above: Performed By: #### A RUMA #### [facility] (DEFAULT) [address] [place] [address] IRON/IRON BINDING/TRANSFERRI Non 12-25-2024 Interpretation and review of laboratory results Normal [facility] Iron [Mass/Vol] 93 ug/dL [facility] Iron binding capacity [Mass/Vol] 318 [facility] Iron saturation [Mass fraction] 29 % 20 - 55 % [facility] Transferrin [Mass/Vol] 254 mg/dL 200 - 400 mg/dL [facility] Iron [Mass/Vol] 93 ug/dL Normal 40-174 [facility] Comment on above: Performed By: #### H SVG12 #### [facility] (DEFAULT) [address] [address] Iron Saturation 29 % Normal 20-55 [facility] Comment on above: Performed By: #### H SVG12 #### [facility] (DEFAULT) [address] [address] Total Iron Binding Capacity 318 mcg/dL Normal 250-425 [facility] Comment on above: Performed By: #### H SVG12 #### [facility] (DEFAULT) [address] [address] Transferrin [Mass/Vol] 254 mg/dL Normal 200-400 [facility] Comment on above: Performed By: #### H SVG12 #### [facility] (DEFAULT) [address] [address] No Panel Informationon 12-25 [facility] PHOSPHATIDYLETHANOL (PETH), WHOLE BLOOD QUANTITATIVEon 12-25-2024 PEth 16:0/18:1 (POPEth) <10 Normal Cutoff: 10 O [facility] Comment on above: Result Comment: Phos phatidylethanol (PEth) homologues result interpretation PEth 16:0/18:1 (POPEth) Less than 10 ng/mL: Not detected 10 - 19 ng/mL: Abstinence or light alcohol consumption (<2 drinks per day for several days a week) 20 - 200 ng/mL: Moderate alcohol consumption (up to 4 drinks per day for several days a week) Greater than 200 ng/mL: Heavy alcohol consumption or chronic alcohol use (at least 4 drinks per day several days a week) (Reference: Javad Benjamin and Stefan Albarran 2018 J. Forensic Sci) Performed By: #### S URGP #### [facility] (DEFAULT) [address] [address] PEth 16:0/18:2 (PLPEth) <10 Normal Cutoff: 10 O [facility] Comment on above: Result Comment: PEth 16:0/18:2 (PLPEth) Reference ranges are not well established Performed By: #### S URGP #### [facility] (DEFAULT) [address] [address] PHOSPHATIDYLETHANOL (PETH), WHOLE BLOOD QUANTITATIVE Negative Normal [facility] Comment on above: Result Comment: ADDITIONAL INFORMATION This report is intended for use in clinical monitoring and management of patients. It is not intended for use in employment-related testing. This test was developed and its performance characteristics determined by [facility] in a manner consistent with CLIA requirements. This test has not been cleared or approved by the U.S. Food and Drug Administration. Test Performed by: [facility] [place] [address] Sales Coach: Ananth Novoa Ph.D.; CLIA# [id number] Performed By: #### S URGP #### [facility] (DEFAULT) [address] [address] MR/BMS.BVSon 12-20-2024 MR/BMS.BVS Normal [facility] Endocrinology Visit Reporton 12-18-2024 Endocrinology Visit Report Normal [facility] Laboratory - Hematology and Cell countsOrdered By: Grisel Timmons on 12-18-2024 HbA1c (Bld) [Mass fraction] 6.3 % 4.2-6.3 [facility] NUC MYOCARD PERF STRESS MIBI PHARMon 12-13-2024 NUC MYOCARD PERF STRESS MIBI PHARM ? Stress myocardial perfusion scan within normal limits. ? No evidence of ischemia. ? No evidence of prior myocardial injury. ? Normal left ventricular systolic function ( 50%). ? There is no TID and the LH ratio is normal ? Mild coronary calcications noted . This study is not optimized to detect coronary calcifications. ? The pharmacological stress ECG is negative at the heart rate obtained.. Table formatting from the original result was not included. Images from the original result were not included. [facility] Facility [facility] Patient Information Patient Name Reginaldo Huffman Legal Sex Male Indication for Exam Priority: Routine Dx: Pre-transplant evaluation for kidney transplant [Z01.818 (ICD-10-CM)]; ESRD (end stage renal disease) on dialysis [N18.6, Z99.2 (ICD-10-CM)] Comments: Can convert to pharmalogical stress if patient can not complete exercise stress Order Question Reason for Exam pre kidney transplant evaluation Interpretation Summary Result History is available. ? Stress myocardial perfusion scan within normal limits. ? No evidence of ischemia. ? No evidence of prior myocardial injury. ? Normal left ventricular systolic function ( 50%). ? There is no TID and the LH ratio is normal ? Mild coronary calcications noted . This study is not optimized to detect coronary calcifications. ? The pharmacological stress ECG is negative at the heart rate obtained.. Stress Findings ECG Baseline ECG is normal. Baseline ECG shows non-specific ST-T wave abnormalities consistent with ST depression. Stress ECG is unchanged from baseline. Recovery ECG returned to baseline. Negative pharm stress test. Stress Findings A pharmacological stress test was performed using dobutamine. The patient reported no symptoms prior to the stress test. The patient reported no symptoms during the stress test. The patient reached the end of the protocol. Reading Providers Reading Role Read Date Davida Souza MD ECG [place], SPECT [place], Test Product Marketer 12/13/2024 Stress Measurements Baseline Vitals-Supine Baseline HR 63 bpm Baseline SBP 166 mmHg Baseline DBP 85 mmHg Peak Stress Vitals Peak HR 75 bpm Peak SBP 165 mmHg Peak DBP 68 mmHg Rate Pressure Product 12,375 Exercise Data APHRMAX 164 bpm % APHRMAX 46 % Exercise duration (min) 4 min Nuclear Stress Findings Isotope Admin The isotope used for nuclear imaging was technetium sestamibi. Nuclear Study Quality Overall image quality is good. Apical thinning artifact was visualized. Nuclear Stress Gating The stress/rest perfusion ratio is 1.01. There is no evidence of transient ischemic dilation (TID). Ejection fraction is 50.00%. Lung to heart ratio is normal determined by sestamibi (less than 0.44). The lung to heart ratio is 0.27. Stage Data 1 2 3 4 5 Stage Rest Stress Stress Stress Recovery Stage Details supine 1 2 3 1 Time in stage (min:sec) 1:00 1:00 2:00 1:00 Heart Rate 63 69 75 75 73 Blood Pressure 166/85 172/69 165/68 165/73 O2 Sat % Metabolic Equivalents RPE [place] Dobutamine (mcg/kg/min) Atropine (mg) Grade % Speed Kermit Score Dyspnea Kermit Score Leg Fatigue Comments 6 7 8 9 10 Stage Recovery Stage Details 2 Time in stage (min:sec) 3:00 Heart Rate 73 Blood Pressure 175/80 O2 Sat % Metabolic Equivalents RPE [place] Dobutamine (mcg/kg/min) Atropine (mg) Grade % Speed Kermit Score Dyspnea Kermit Score Leg Fatigue Comments Nuclear Stress Measurements Nuc Stress EF 50 % Nuclear Perfusion Perfusion Scoring Stress Summed Score: 0 Percent Abnormal: 0.00% The left ventricular perfusion is normal. Resting Summed Score: 0 Percent Abnormal: 0.00% The left ventricular perfusion is normal. Perfusion Scores Score Percentage Abnormal SRS 0 0.00% SSS 0 0.00% SDS 0 0.00% (RETIRED/Read Only) Stress Test Data No documentation. Study Details Pharmacological nuclear stress test performed using 1-day protocol. Regadenoson infusion given over 10 seconds. Exam Details Performed Procedure Technologist Supporting Staff Performing Physician NUC MYOCARD PERF STRESS MIBI PHARM Geri NewFranklyn Barakat, KLEBER Rivera, KLEBER Souza MD Appointment Date/Status Recent Event Modality Department 12/13/2024 Arrived Validated [facility] [email or web address] NUC MED , [facility] NUCLEAR MED CARDIOLOGY [facility] Begin Exam End Exam End Exam Questionnaires 12/13/2024 7:25 AM 12/13/2024 11:00 AM PERFORMING STAFF END EXAM NUC MED INFILTRATE INFORMATION CONTRAST REACTION INFORMATION Vitals Height Weight BSA (Calculated - sq m) BP Pulse 1.727 m (5' 8) 88.9 kg (196 lb) 2.03 m2 166/85 63 Imaging Contrast/Medications: Technetium tc 99m sestamibi (SEST (more content not included)... Normal [facility] SPECT Heart perfusion at res t and W stress and W radionuclide IVOrdered By: Davida Souza on 12-13-2024 % APHRMAX 46 % [facility] Work Phone: APHRMAX 164 bpm [facility] Work Phone: Baseline DBP 85 mmHg [facility] Work Phone: Baseline HR 63 bpm [facility] Work Phone: Baseline SBP 166 mmHg [facility] Work Phone: Body surface area Derived from formula 2.03 m2 [facility] Work Phone: Exercise duration (min) 4 min O [facility] Work Phone: Nuc Stress EF 50 % [facility] Work Phone: Peak DBP 68 mmHg [facility] Work Phone: Peak HR 75 bpm [facility] Work Phone: Peak SBP 165 mmHg [facility] Work Phone: Rate Pressure Product 22102 [facility] Work Phone: [facility] Work Phone: SPECT Heart perfusion at res t and W stress and W radionuclide George 12-13-2024 Stress myocardial perfusion scan within normal limits. No evidence of ischemia. No evidence of prior myocardial injury. Normal left ventricular systolic function ( 50%). There is no TID and the LH ratio is normal Mild coronary calcications noted . This study is not optimized to detect coronary calcifications. The pharmacological stress ECG is negative at the heart rate obtained.. Study Details Pharmacological nuclear stress test performed using 1-day protocol. Regadenoson infusion given over 10 seconds. Stress Findings A pharmacological stress test was performed using dobutamine. The patient reported no symptoms prior to the stress test. The patient reported no symptoms during the stress test. The patient reached the end of the protocol. ECG Baseline ECG is normal. Baseline ECG shows non-specific ST-T wave abnormalities consistent with ST depression. Stress ECG is unchanged from baseline. Recovery ECG returned to baseline. Negative pharm stress test. Nuclear Study Quality Overall image quality is good. Apical thinning artifact was visualized. Isotope Admin The isotope used for nuclear imaging was technetium sestamibi. Nuclear Stress Gating The stress/rest perfusion ratio is 1.01. There is no evidence of transient ischemic dilation (TID). Ejection fraction is 50.00%. Lung to heart ratio is normal determined by sestamibi (less than 0.44). The lung to heart ratio is 0.27. Perfusion Scoring Stress Summed Score: 0 Percent Normal: 0.00% The left ventricular perfusion is normal. Perfusion Scoring Resting Summed Score: 0 Percent Normal: 0.00% The left ventricular perfusion is normal. [facility] Radiology Study observation (narrative) [facility] CT ANGIO ABDOMINAL AORTA WIT H RUNOFFon 12-11-2024 CT ANGIO ABDOMINAL AORTA WITH RUNOFF EXAM: CT ANGIO ABDOMINAL AORTA WITH RUNOFF, 12/11/2024 08:09 AM CLINICAL INDICATIONS: pre kidney transplant evaluation RELEVANT CLINICAL HISTORY: Z01.818:Pre-transplant evaluation for kidney transplant N18.6:ESRD (end stage renal disease) on dialysis Z99.2:ESRD (end stage renal disease) on dialysis To evaluate iliac vessels for potential kidney transplant; CONTRAST: iohexol (OMNIPAQUE) 350 MG/ML injection 1-171 mL; Route of Administration: Intravenous; Dose: 80 mL. COMPARISON: Compared to prior study dated 12/24/2015. TECHNIQUE: Submillimeter contiguous axial sections were taken during the arterial phase of intravenous injection of contrast from the top of the abdominal aorta through the lower extremities. Delayed phase images were further obtained. Images were then reconstructed in the coronal and sagittal planes. Oral contrast was not used so as to optimize the visualization of the vasculature. Additional multiplanar and 3D reconstructions were provided. FINDINGS: VASCULAR The abdominal aorta is patent and demonstrate mild scattered atheromatous changes. The bilateral iliac arteries are patent and demonstrate minimal atheromatous changes. The bilateral femoral arteries are patent and demonstrate mild atheromatous changes predominantly involving the distal superficial femoral arteries. The celiac trunk, SMA, and SACHIN are patent and demonstrate origin atheromatous disease. The bilateral renal arteries are patent. The portal vein is patent. There are gastric varices and numerous left upper quadrant collaterals. The IVC and visualized iliofemoral veins are patent. OTHER The lower thorax is unremarkable. Hepatosplenomegaly. Previously noted hepatic lesions on prior MRI from 2016 are not well appreciated on this exam. Nonspecific calcification adjacent to the inferior pole the spleen. There are bilateral subcentimeter adrenal myelolipomas. The gallbladder is unremarkable. Renal cysts and too small to characterize hypodensities. Nonspecific perinephric fat stranding. The bowel loops are nonobstructed. Colonic diverticulosis, without evidence for acute diverticulitis. The bladder is underdistended limiting the evaluation. The prostate gland is unremarkable. Degenerative changes of the osseous structures. Subcutaneous soft tissue densities along the anterior abdominal wall are likely related to medication injections. IMPRESSION: 1. Patent abdominopelvic and iliofemoral arterial venous vasculature. Mild scattered atheromatous changes noted. 2. Gastric varices and numerous left upper quadrant collaterals. 3. Additional soft tissue and ancillary findings as described above. Normal [facility] CTA Abdominal Aorta and Bila teral Runoff Vessels W contrast George 12-11-2024 IMPRESSION: 1. Patent abdominopelvic and iliofemoral arterial venous vasculature. Mild scattered atheromatous changes noted. 2. Gastric varices and numerous left upper quadrant collaterals. 3. Additional soft tissue and ancillary findings as described above. OLOGY EXAM: CT ANGIO ABDOM INAL AORTA WITH RUNOFF, 12/11/2024 08:09 AM CLINICAL INDICATIONS: pre kidney transplant evaluation RELEVANT CLINICAL HISTORY: Z01.818:Pre-transplant evaluation for kidney transplant N18.6:ESRD (end stage renal disease) on dialysis Z99.2:ESRD (end stage renal disease) on dialysis To evaluate iliac vessels for potential kidney transplant; CONTRAST: iohexol (OMNIPAQUE) 350 MG/ML injection 1-171 mL; Route of Administration: Intravenous; Dose: 80 mL. COMPARISON: Compared to prior study dated 12/24/2015. TECHNIQUE: Submillimeter contiguous axial sections were taken during the arterial phase of intravenous injection of contrast from the top of the abdominal aorta through the lower extremities. Delayed phase images were further obtained. Images were then reconstructed in the coronal and sagittal planes. Oral contrast was not used so as to optimize the visualization of the vasculature. Additional multiplanar and 3D reconstructions were provided. FINDINGS: VASCULAR The abdominal aorta is patent and demonstrate mild scattered atheromatous changes. The bilateral iliac arteries are patent and demonstrate minimal atheromatous changes. The bilateral femoral arteries are patent and demonstrate mild atheromatous changes predominantly involving the distal superficial femoral arteries. The celiac trunk, SMA, and SACHIN are patent and demonstrate origin atheromatous disease. The bilateral renal arteries are patent. The portal vein is patent. There are gastric varices and numerous left upper quadrant collaterals. The IVC and visualized iliofemoral veins are patent. OTHER The lower thorax is unremarkable. Hepatosplenomegaly. Previously noted hepatic lesions on prior MRI from 2016 are not well appreciated on this exam. Nonspecific calcification adjacent to the inferior pole the spleen. There are bilateral subcentimeter adrenal myelolipomas. The gallbladder is unremarkable. Renal cysts and too small to characterize hypodensities. Nonspecific perinephric fat stranding. The bowel loops are nonobstructed. Colonic diverticulosis, without evidence for acute diverticulitis. The bladder is underdistended limiting the evaluation. The prostate gland is unremarkable. Degenerative changes of the osseous structures. Subcutaneous soft tissue densities along the anterior abdominal wall are likely related to medication injections. RADIOLOGY Devonte James MD - 12/11/2024 EXAM: CT ANGIO ABDOMINAL AORTA WITH RUNOFF, 12/11/2024 08:09 AM CLINICAL INDICATIONS: pre kidney transplant evaluation RELEVANT CLINICAL HISTORY: Z01.818:Pre-transplant evaluation for kidney transplant N18.6:ESRD (end stage renal disease) on dialysis Z99.2:ESRD (end stage renal disease) on dialysis To evaluate iliac vessels for potential kidney transplant; CONTRAST: iohexol (OMNIPAQUE) 350 MG/ML injection 1-171 mL; Route of Administration: Intravenous; Dose: 80 mL. COMPARISON: Compared to prior study dated 12/24/2015. TECHNIQUE: Submillimeter contiguous axial sections were taken during the arterial phase of intravenous injection of contrast from the top of the abdominal aorta through the lower extremities. Delayed phase images were further obtained. Images were then reconstructed in the coronal and sagittal planes. Oral contrast was not used so as to optimize the visualization of the vasculature. Additional multiplanar and 3D reconstructions were provided. FINDINGS: VASCULAR The abdominal aorta is patent and demonstrate mild scattered atheromatous changes. The bilateral iliac arteries are patent and demonstrate minimal atheromatous changes. The bilateral femoral arteries are patent and demonstrate mild atheromatous changes predominantly involving the distal superficial femoral arteries. The celiac trunk, SMA, and SACHIN are patent and demonstrate origin atheromatous disease. The bilateral renal arteries are patent. The portal vein is patent. There are gastric varices and numerous left upper quadrant collaterals. The IVC and visualized iliofemoral veins are patent. OTHER The lower thorax is unremarkable. Hepatosplenomegaly. Previously noted hepatic lesions on prior MRI from 2016 are not well appreciated on this exam. Nonspecific calcification adjacent to the inferior pole the spleen. There are bilateral subcentimeter adrenal myelolipomas. The gallbladder is unremarkable. Renal cysts and too small to characterize hypodensities. Nonspecific perinephric fat stranding. The bowel loops are nonobstructed. Colonic diverticulosis, without evidence for acute diverticulitis. The bladder is underdistended limiting the evaluation. The prostate gland is unremarkable. Degenerative changes of the osseous structures. Subcutaneous soft tissue densities along the anterior abdominal wall are likely related to medication injections. IMPRESSION IMPRESSION: 1. Patent abdominopelvic and iliofemoral arterial venous vasculature. Mild scattered atheromatous changes noted. 2. Gastric varices and numerous left upper quadrant collaterals. 3. Additional soft tissue and ancillary findings as described above. [facility] Radiology Study observation (narrative) [facility] CTA Abdominal Aorta and Bila teral Runoff Vessels W contrast IVOrdered By: Devonte James on 12-11-2024 [facility] Work Phone: Cardiac echo study Procedure Ordered By: Carlos Sarmiento on 12-11-2024 Ao ASC index 1.77 cm/m2 [facility] Work Phone: Ao peak martinez 1.74 m/s [facility] Work Phone: Ao SOV index 1.67 cm/m2 [facility] Work Phone: Ao STJ index 1.32 cm/m2 [facility] Work Phone: Ao VTI 40.01 cm [facility] Work Phone: Ascending [facility] 3.6 [facility] Work [facility]: AV LVOT peak gradient 4 mmHg [facility] Work Phone: AV [facility] peak gradient 12 [facility] Work Phone: AV valve area 2.14 cm2 [facility] Work Phone: AV Velocity Ratio 0.55 [facility] Work Phone: GENESIS (continuity Vmax) 2.1 cm2 [facility] Work Phone: GENESIS (continuity VTI) 2.14 cm2 [facility] Work Phone: GENESIS index (continuity Vmax) 1.03 m/s [facility] Work Phone: GENESIS index (continuity VTI) 1.06 cm2/m2 [facility] Work Phone: Avg e' pk mratinez 0.09 m/s [facility] Work Phone: Avg E/e' ratio 13.74 [facility] Work Phone: Body surface area Derived from formula 2.03 m2 [facility] Work Phone: BP EF 49 % [facility] Work Phone: DI (Vmax) 0.55 [facility] Work Phone: DI (VTI) 0.56 m/2 [facility] Work Phone: E wave decelartion time 229.29 msec [facility] Work Phone: e' lateral pk martinez 0.1154 m[facility] Work [facility]: e' lateral pk martinez 0.12 m/[facility] Work Phone: e' septal pk martinez 0.0684 m/s [facility] Work Phone: e' septal pk martinez 0.07 m/s [facility] Work Phone: E/A ratio 1.79 [facility] Work Phone: [facility] E/e' septal [facility] Work Phone: EF SP 2CH 51 [facility] Work Phone: EF SP 4CH 46 [facility] Work Phone: EST RAP 8 mmHg [facility] Work Phone: EST RVSP 35 mmHg [facility] Work Phone: FS 22 % [facility] Work Phone: IVC ostium 2.37 cm [facility] Work Phone: IVS 0.99 cm [facility] Work Phone: LA AREA 2CH 25.45 cm2 [facility] Work Phone: LA area 4CH 24.97 cm2 [facility] Work Phone: LA ESV BP (MOD) 84 mL [facility] Work Phone: LA ESV BP (MOD) index 41 mL/m2 [facility] Work Phone: LA ESV SP 2CH (MOD) 84 mL [facility] Work Phone: [phone] LA ESV SP 4CH (MOD) 80 mL [facility] Work Phone: LV EDV BP 255 mL [facility] Work Phone: [phone] LV EDV SP 2CH 265 mL [facility] Work Phone: LV EDV SP 4CH 245 mL [facility] Work Phone: LV ESV BP 131 mL [facility] Work Phone: LV ESV SP 2CH 130 mL [facility] Work Phone: LV ESV SP 4CH 133 mL [facility] Work Phone: [phone] LV mass 252.33 g [facility] Work Phone: LV Mass Index 124.3 g/m2 [facility] Work Phone: LV RWT 0.39 [facility] Work Phone: LV stroke volume BP (ml) 124 mL [facility] Work Phone: LV stroke volume index BP 61.08 mL/m2 [facility] Work Phone: LVIDD 5.81 cm [facility] Work Phone: LVIDS 4.53 cm [facility] Work Phone: LVOT area 3.8 cm2 [facility] Work Phone: LVOT diameter 2.2 cm [facility] Work Phone: LVOT peak martinez 0.96 m/s [facility] Work Phone: LVOT peak VTI 22.58 cm [facility] Work Phone: LVOT stroke volume 86 cm3 [facility] Work Phone: LVOT stroke volume index 42.26 ml/m2 [facility] Work Phone: MV mean gradient 3 mmHg [facility] Work Phone: MV pk A martinez 0.66 m/s [facility] Work Phone: MV pk E martinez 1.18 m/s [facility] Work Phone: MV stenosis pressure 1/2 time 66.5 ms [facility] Work Phone: MV valve area by continuity eq 2.4 cm2 [facility] Work Phone: MV valve area p 1/2 method 3.31 cm2 [facility] Work Phone: MV VTI 35.68 cm [facility] Work Phone: MVA (continuity VTI) 2.4 cm [facility] Work Phone: OSU AV VTI RATIO PRE STRESS 0.56 [facility] Work Phone: OSU ECHO LV BIPLANE SYSTOLIC VOLUME INDEX 64.53 mL/m2 [facility] Work Phone: O[facility] ECHO LV BP DIASTOLIC VOLUME INDEX 125.62 mL/m2 [facility] Work Phone: [facility] RVOT VTI RATIO 0.64 [facility] Work Phone: PV mean gradient 3 mmHg [facility] Work Phone: PV peak gradient [facility] Work Phone: PV PK MARTINEZ 1.24 m/s [facility] Work Phone: PV VTI 28.27 cm [facility] Work Phone: PW 1.13 cm [facility] Work Phone: RA vol index 4CH (MOD) 28.57 mL/m2 O [facility] Work Phone: Right atrium volume 4 chamber method of disks 58 mL [facility] Work Phone: RV Area diastolic 27.18 cm2 [facility] Work Phone: RV Area systolic 16.33 cm2 [facility] Work Phone: RV basal diam 4.67 cm [facility] Work Phone: RV Fractional area change 39.9 % [facility] Work Phone: RV long diam 9.27 cm [facility] Work Phone: RV mid diam 3.39 cm [facility] Work Phone: RV S' 14.37 cm/s [facility] Work Phone: RVOT peak gradient 2 mmHg [facility] Work Phone: RVOT peak martinez 0.69 m/s [facility] Work Phone: RVOT peak VTI 18.1 cm [facility] Work Phone: Sinus 3.38 cm [facility] Work Phone: STJ 2.68 cm [facility] Work Phone: Stroke Volume 86 cm/mL [facility] Work Phone: Stroke volume index [address] [facility] Work Phone: TAPSE 2.1 cm [facility] Work Phone: TR pk grad 27 mmHg [facility] Work Phone: TR pk martinez 2.62 m/s [facility] Work Phone: [facility] Work Phone: Cardiac echo study Procedure on 12-11-2024 The left ventricular chamber size and systolic function are normal. LVEF 55-60%. Grade II diastolic dysfunction. The right ventricular chamber size and systolic function are normal. There is no hemodynamically significant valvular disease. Estimated RVSP 35 mmHg. Left Ventricle Chamber size is normal. Normal wall thickness. Normal global systolic function. Regional wall motion is normal. Ejection fraction is normal (55 - 60%). Diastolic function is consistent with pseudonormalization (grade II). Right Ventricle Chamber size is normal. Systolic function is normal. Estimated right ventricular systolic pressure is 35 mmHg. Left Atrium Chamber size is mildly enlarged. Right Atrium Chamber size is normal. IVC/SVC The inferior vena cava is normal in size. The inferior vena cava structure is normal. The diameter is >21 mm and decreases >50% during inspiration. Mitral Valve Normal appearing leaflets. Leaflet mobility is normal. Trace regurgitation. No valve stenosis. Tricuspid Valve Normal leaflets. Leaflet mobility is normal. Trace regurgitation. No stenosis. Estimated right ventricular systolic pressure is 35 mmHg. Aortic Valve Trileaflet valve. Leaflet mobility is normal. No regurgitation. No stenosis. Pulmonic Valve Trace regurgitation. No stenosis. Pericardium No pericardial effusion. Septum The atrial septum is normal. Aorta No dilation to extent seen. SOV: 3.38 cm. STJ: 2.68 cm. Ascendin.60 cm. Study Details A complete echocardiography study (including color flow Doppler, spectral Doppler, M-mode and microbubbles) was performed. Contrast indication: evaluation of left ventricle contiguous segments and evaluation of left ventricle apex. Study limitations include patient body habitus and technically difficult study. Imaging system used: Siemens. Indications Indications for study: pre-op. Wall Scoring Score Index: 1.00 The left ventricular wall motion is normal. [facility] Radiology Study observation (narrative) [facility] ECHOCARDIOGRAMon 12-11-2024 Echocardiography The left ventricular chamber size and systolic function are normal. LVEF 55-60%. Grade II diastolic dysfunction. The right ventricular chamber size and systolic function are normal. There is no hemodynamically significant valvular disease. Estimated RVSP 35 mmHg. Table formatting from the original result was not included. Images from the original result were not included. [facility] Patient Information Patient Name Reginaldo Huffman Legal Sex Male Indication for Exam Priority: Routine Dx: Pre-transplant evaluation for kidney transplant [Z01.818 (ICD-10-CM)]; ESRD (end stage renal disease) on dialysis [N18.6, Z99.2 (ICD-10-CM)]; Pre-operative cardiovascular examination [Z01.810 (ICD-10-CM)] Comments: pre kidney transplant evaluation Interpretation Summary Result History is available. The left ventricular chamber size and systolic function are normal. LVEF 55-60%. Grade II diastolic dysfunction. The right ventricular chamber size and systolic function are normal. There is no hemodynamically significant valvular disease. Estimated RVSP 35 mmHg. Findings Left Ventricle Chamber size is normal. Normal wall thickness. Normal global systolic function. Regional wall motion is normal. Ejection fraction is normal (55 - 60%). Diastolic function is consistent with pseudonormalization (grade II). Right Ventricle Chamber size is normal. Systolic function is normal. Estimated right ventricular systolic pressure is 35 mmHg. Left Atrium Chamber size is mildly enlarged. Right Atrium Chamber size is normal. Septum The atrial septum is normal. Mitral Valve Normal appearing leaflets. Leaflet mobility is normal. Trace regurgitation. No valve stenosis. Aortic Valve Trileaflet valve. Leaflet mobility is normal. No regurgitation. No stenosis. Tricuspid Valve Normal leaflets. Leaflet mobility is normal. Trace regurgitation. No stenosis. Estimated right ventricular systolic pressure is 35 mmHg. Pulmonic Valve Trace regurgitation. No stenosis. Aorta No dilation to extent seen. SOV: 3.38 cm. STJ: 2.68 cm. Ascendin.60 cm. Pericardium No pericardial effusion. IVC/SVC The inferior vena cava is normal in size. The inferior vena cava structure is normal. The diameter is >21 mm and decreases >50% during inspiration. Reading Providers Reading Role Read Date Carlos Sarmiento MD Echo [place] 12/11/2024 Wall Scoring Score Index: 1.00 The left ventricular wall motion is normal. Left Heart Measurements LV - Systole LVIDD 5.81 cm IVS 0.99 cm LVIDS 4.53 cm PW 1.13 cm LV RWT 0.39 LV Mass Index 124.3 g/m2 LV EDV BP 255 mL LV ESV BP 131 mL BP EF 49 % LV stroke volume BP (ml) 124 mL LV stroke volume index BP 61.08 mL/m2 LV - Diastole MV pk E martinez 1.18 m/s MV pk A martinez 0.66 m/s E/A ratio 1.79 e' septal pk martinez 0.07 m/s e' lateral pk martinez 0.12 m/s Avg e' pk martinez 0.09 m/s E/e' septal ratio 17.25 E/e' lateral ratio 10.23 Avg E/e' ratio 13.74 LV - HCM AV LVOT peak gradient 4 mmHg Left Atrium LA ESV SP 4CH (MOD) 80 mL LA ESV SP 2CH (MOD) 84 mL LA ESV BP (MOD) index 41 mL/m2 Right Heart Measurements RV - 2D RV basal diam 4.67 cm RV mid diam 3.39 cm RV long diam 9.27 cm RV Area diastolic 27.18 cm2 RV Area systolic 16.33 cm2 RV Fractional area change 39.9 % RV - Doppler TAPSE 2.1 cm RV S' 14.37 cm/s Right Atrium RA vol index 4CH (MOD) 28.57 mL/m2 EST RAP 8 mmHg Great Vessels Aortic Root - End Diastolic Sinus 3.38 cm STJ 2.68 cm Ascending aorta 3.6 cm Inferior Vena Cava IVC ostium 2.37 cm Doppler Measurements - Aortic Valve Stenosis LVOT diameter 2.2 cm LVOT area 3.8 cm2 LVOT peak martinez 0.96 m/s LVOT peak VTI 22.58 cm Stroke Volume 86 cm/mL Stroke volume index 42 Ao peak martinez 1.74 m/s Ao VTI 40.01 cm AV peak gradient 12 mmHG AV mean gradient 7 mmHg DI (VTI) 0.56 m/2 DI (Vmax) 0.55 GENESIS (continuity Vmax) 2.1 cm2 GENESIS index (continuity Vmax) 1.03 m/s GENESIS (continuity VTI) 2.14 cm2 GENESIS index (continuity VTI) 1.06 cm2/m2 LVOT stroke volume 86 cm3 LVOT stroke volume index 42.26 ml/m2 Doppler Measurements - Mitral Valve Stenosis MV pk E martinez 1.18 m/s MV pk A martinez 0.66 m/s E/A ratio 1.79 MV VTI 35.68 cm MV stenosis pressure 1/2 time 66.5 ms MV mean gradient 3 mmHg MV valve area p 1/2 method 3.31 cm2 MV valve area by continuity eq 2.4 cm2 PISA-MS MV pk E martinez 1.18 m/s Doppler Measurements - Tricuspid Valve Stenosis IVC ostium 2.37 cm Regurgitation TR pk martinez 2.62 m/s TR pk grad 27 mmHg EST RAP 8 mmHg EST RVSP 35 mmHg Doppler Measurements - Pulmonic Valve Stenosi (more content not included)... Normal [facility] CNCOon 11-29-2024 CNCO Letter Text Normal [facility] CNPAngelica 11-29-2024 CNPN Telephone (TXCTGL) -------- REGINALDO HUFFMAN ([id number]) 1970 M Date Time Provider Department 11/29/24 DIONE LOVE TXCTGL During your visit today, we recorded the following information about you: Allergies As of Date: 11/29/2024 Noted Allergy Reaction AMLODIPINE 11/30/2021 7 - Swelling Comments: Uncomfortable swelling CLARITIN (LORATADINE) 05/09/2005 4 - Hives ERYTHROMYCIN 05/09/2005 Comments: Spacey Feeling HAYFEVER (HOMEOPATHIC PRODUCTS) 04/15/2005 Date Reviewed: 06/23/2023 Reviewed by: Candy Penn APRN.[employer]ER - Fully Assessed Reason for Visit: Referral - Kidney Txp [[id number]] Cmt: NS on 3/26 Prescriptions as of 11/29/2024 - insulin glargine (LANTUS SOLOSTAR U-100 INSULIN) 100 unit/mL (3 mL) Inject 38 Units subcutaneously two times a day. - insulin lispro (ADMELOG SOLOSTAR U-100 INSULIN) 100 unit/mL Inject subcutaneously 18 units TID meals plus up to units daily 70 units daily - blood sugar diagnostic (FREESTYLE LITE STRIPS) test strip Use 4 strips per day, IDDM, E11.65 - alcohol swabs Use 8 swabs daily TO CHECK BLOOD SUGAR AND FOR INSULIN INJECTIONS - Insulin Jericho, Disposable, (PEN NEEDLES) 31 gauge x 1/4 ndle Use 4 pen needles daily - ARIPiprazole (ABILIFY) 2 mg tablet Take 2 tablets by mouth once daily. - LISINOPRIL ORAL Take 40 mg by mouth daily at bedtime. - atenolol (TENORMIN) 50 mg tablet Take 1 tablet by mouth twice daily. - sertraline (ZOLOFT) 100 mg tablet [...] by mouth at bedtime as needed. - carBAMazepine (TEGRETOL) 200 mg tablet Take 3 tablets by mouth twice daily. - meclizine (ANTIVERT) 25 mg tab Take 25 mg by mouth as needed. - gabapentin (NEURONTIN) 100 mg capsule take 1 capsule by mouth three times a day - Blood-Glucose Meter (FREESTYLE LITE METER) monitoring kit 1 Each as needed. - sildenafil (REVATIO) 20 mg tablet 2 to 5 tabs a day prn. - omega 3-esa-dvn-fish oil 300-400-1,000 mg cap Take 1 capsule [...] once daily Problem List As Of Date 11/29/2024 Noted Resolved Essential hypertension [I10] 05/09/2005 Trigeminal neuralgia [G50.0] 05/09/2005 Lumbago [M54.50] 05/09/2005 Major depressive disorder, recurrent episode (H*05/09/2005 Mixed hyperlipidemia [E78.2] 05/09/2005 CHRONIC PANCREATITIS [K86.1] 05/09/2005 Sebaceous Cyst [L72.3] 08/31/2005 09/16/2009 Sprain and Strain of Unspecified Site of Foot [*01/23/2007 09/16/2009 Onychia and Paronychia of Toe [L03.039] 02/02/2007 09/16/2009 Cellulitis and Abscess of Trunk [L03.319, L02.2*06/02/2009 09/16/2009 Sebaceous cyst [L72.3] 04/22/2011 09/25/2015 Seizure disorder (HCC) [G40.909] Chronic alcoholism in remission [F10.21] 03/01/2012 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 07/23/2019 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 Lateral epicondylitis of elbow [M77.10] 05/29/2014 09/25/2015 Elbow pain [M25.529] 05/29/2014 09/25/2015 Pain in joint, upper arm [M25.529] 06/03/2014 09/25/2015 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811] 12/23/2022 Cellulitis of toe [L03.039] 12/29/2022 Closed fracture of phalanx of toe [S92.919A] 01/26/2022 Decreased testosterone level [R79.89] 12/29/2022 Depressive disorder [F32.A] 12/29/2022 Dizziness and giddiness [R42] 02/15/2022 [facility] (more content not included)... [facility] REGINALDO HUFFMAN ([id number]) 1970 M Date Time Provider Department 11/20/24 LURDES HAYNES TXCTGL During your visit today, we recorded the following information about you: Lurdes Haynes RN 11/20/2024 7:52 AM Signed Called patient to see if he was planning on coming to today's evaluation starting at 8a. I had to leave a . Lurdes Haynes RN November 20, 2024 7:52 AM Allergies As of Date: 11/20/2024 Noted Allergy Reaction AMLODIPINE 11/30/2021 7 - Swelling Comments: Uncomfortable swelling CLARITIN (LORATADINE) 05/09/2005 4 - Hives ERYTHROMYCIN 05/09/2005 Comments: Spacey Feeling HAYFEVER (HOMEOPATHIC PRODUCTS) 04/15/2005 Date Reviewed: 06/23/2023 Reviewed by: Candy Penn APRN.[employer] T[employer]ER - Fully Assessed Prescriptions as of 11/20/2024 - insulin glargine (LANTUS SOLOSTAR U-100 INSULIN) 100 unit/mL (3 mL) Inject 38 Units subcutaneously two times a day. - insulin lispro (ADMELOG SOLOSTAR U-100 INSULIN) 100 unit/mL Inject subcutaneously 18 units TID meals plus up to units daily 70 units daily - blood sugar diagnostic (FREESTYLE LITE STRIPS) test strip Use 4 strips per day, IDDM, E11.65 - alcohol swabs Use 8 swabs daily TO CHECK BLOOD SUGAR AND FOR INSULIN INJECTIONS - Insulin Jericho, Disposable, (PEN NEEDLES) 31 gauge x 1/4 ndle Use 4 pen needles daily - ARIPiprazole (ABILIFY) 2 mg tablet Take 2 tablets by mouth once daily. - LISINOPRIL ORAL Take 40 mg by mouth daily at bedtime. - atenolol (TENORMIN) 50 mg tablet Take 1 tablet by mouth twice daily. - sertraline (ZOLOFT) 100 mg tablet [...] by mouth at bedtime as needed. - carBAMazepine (TEGRETOL) 200 mg tablet Take 3 tablets by mouth twice daily. - meclizine (ANTIVERT) 25 mg tab Take 25 mg by mouth as needed. - gabapentin (NEURONTIN) 100 mg capsule take 1 capsule by mouth three times a day - Blood-Glucose Meter (FREESTYLE LITE METER) monitoring kit 1 Each as needed. - sildenafil (REVATIO) 20 mg tablet 2 to 5 tabs a day prn. - omega 5-hlc-tlp-fish oil 300-400-1,000 mg cap Take 1 capsule [...] once daily Problem List As Of Date 11/20/2024 Noted Resolved Essential hypertension [I10] 05/09/2005 Trigeminal neuralgia [G50.0] 05/09/2005 Lumbago [M54.50] 05/09/2005 Major depressive disorder, recurrent episode (H*05/09/2005 Mixed hyperlipidemia [E78.2] 05/09/2005 CHRONIC PANCREATITIS [K86.1] 05/09/2005 Sebaceous Cyst [L72.3] 08/31/2005 09/16/2009 Sprain and Strain of Unspecified Site of Foot [*01/23/2007 09/16/2009 Onychia and Paronychia of Toe [L03.039] 02/02/2007 09/16/2009 Cellulitis and Abscess of Trunk [L03.319, L02.2*06/02/2009 09/16/2009 Sebaceous cyst [L72.3] 04/22/2011 09/25/2015 Seizure disorder (HCC) [G40.909] Chronic alcoholism in remission [F10.21] 03/01/2012 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 07/23/2019 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 Lateral epicondylitis of elbow [M77.10] 05/29/2014 09/25/2015 Elbow pain [M25.529] 05/29/2014 09/25/2015 Pain in joint, upper arm [M25.529] 06/03/2014 09/25/2015 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811] 12/23/2022 Cellulitis of toe [L03.039] 12/29/2022 Closed fracture of phalanx of toe [S92.919A] 01/26/2022 Decr (more content not included)... Normal [facility] ABO/RH(D) TYPINGon ABO/RH(D) TYPE Positive [facility] ABO/RH(D) TYPE Positive Normal [facility] Comment on above: Performed By: #### A BORLaurie #### [facility] (DEFAULT) [address] [place] [address] ALBUMINon 11-08-2024 Albumin [Mass/Vol] 4.3 g/dL 3.5 - 5.0 g/dL [facility] Albumin [Mass/Vol] 4.3 g/dL Normal 3.5-5.0 [facility] Comment on above: Performed By: #### H SVG12 #### [facility] (DEFAULT) [address] [place] [address] ALCOHOL (ETHANOL),BLOODOrder ed By: Tresa Nava on 11-08-2024 Ethanol Ql (Bld) mg/dL NINF - 10 mg/dL [facility] Interpretation and review of laboratory results Normal [facility] ALCOHOL (ETHANOL),BLOODon Alcohol, Serum <10 Normal <10 [facility] Comment on above: Performed By: #### A LCOSU #### [facility] (DEFAULT) [address] [place] [address] ALP ALT Vilma 11-08-2024 ALP [Catalytic activity/Vol] 57 U/L 32 - 126 U/L [facility] ALT [Catalytic activity/Vol] 6 U/L Low 10 - 52 U/L [facility] AST [Catalytic activity/Vol] 10 U/L 10 - 39 U/L [facility] ALP [Catalytic activity/Vol] 57 U/L Normal 32-126 [facility] Comment on above: Performed By: #### H SVG12 #### [facility] (DEFAULT) [address] [place] [address]140 ALT [Catalytic activity/Vol] 6 U/L Low 10-52 [facility] Comment on above: Performed By: #### H SVG12 #### [facility] (DEFAULT) [address] [place] [address]67 AST [Catalytic activity/Vol] 10 U/L Normal 10-39 [facility] Comment on above: Performed By: #### H SVG12 #### [facility] (DEFAULT) [address] [place] [address] BILIRUBIN TOTALon 11-08-2024 Bilirubin [Mass/Vol] 0.4 mg/dL NINF - 1.5 mg/dL [facility] Bilirubin [Mass/Vol] 0.4 mg/dL Normal <1.5 [facility] Comment on above: Performed By: #### A BORH #### [facility] (DEFAULT) [address] [place] [address] CALCIUMon 11-08-2024 Calcium [Mass/Vol] 8.8 mg/dL 8.6 - 10. 5 mg/dL [facility] Calcium [Mass/Vol] 8.8 mg/dL Normal 8.6-10.5 [facility] Comment on above: Performed By: #### H SVG12 #### [facility] (DEFAULT) [address] [place] [address] CBC AND ELECTRONIC DIFFon Basophils (Bld) [#/Vol] K/uL 0.00 - 0.09 K/uL [facility] Basophils/100 WBC (Bld) 0.5 % [facility] Differential cell count method Nom (Bld) Electronic Differential [facility] Eosinophils (Bld) [#/Vol] 0.08 10*3/uL 0.00 - 0.48 K/uL [facility] Eosinophils/100 WBC (Bld) 1.4 % [facility] Erythrocyte distribution width (RBC) [Ratio] 13.4 % 10.9 - 14.3 % [facility] Hematocrit (Bld) [Volume fraction] 27.2 % Low 39.6 - 48.8 % [facility] Hemoglobin (Bld) [Mass/Vol] 9.4 g/dL Low 13.4 - 16.8 g/dL [facility] Immature granulocytes (Bld) [#/Vol] 0.08 10*3/uL High NINF - 0.07 K/uL [facility] Immature granulocytes/100 WBC (Bld) 1.4 % [facility] Interpretation and review of laboratory results Abnormal [facility] Lymphocytes (Bld) [#/Vol] 1.58 10*3/uL 0.83 - 3.57 K/uL [facility] Lymphocytes/100 WBC (Bld) 28.5 % [facility] MCH (RBC) [Entitic mass] 32.8 pg 26.1 - 33.3 pg [facility] MCHC (RBC) [Mass/Vol] 34.6 g/dL 31.9 - 36.5 g/dL [facility] MCV (RBC) [Entitic vol] 94.8 fL High 79.0 - 94.5 fL [facility] Monocytes (Bld) [#/Vol] 0.42 10*3/uL 0.24 - 0.93 K/uL [facility] Monocytes/100 WBC (Bld) 7.6 % [facility] Neutrophils (Bld) [#/Vol] 3.36 10*3/uL 1.57 - 6.19 K/uL [facility] Nucleated RBC/100 WBC (Bld) [Ratio] 0 % NINF [facility] Platelet mean volume (Bld) [Entitic vol] 10 fL 8.7 - 12.3 fL [facility] Platelets (Bld) [#/Vol] 196 10*3/uL 146 - 337 K/uL [facility] RBC (Bld) [#/Vol] 2.87 10*6/uL Low [facility] Segmented neutrophils/100 WBC (Bld) 60.6 % [facility] WBC (Bld) [#/Vol] 5.55 10*3/uL 3.73 - 10. 10 K/uL [facility] Abs Baso Auto < Normal 0.00-0.09 [facility] Comment on above: Performed By: #### A RUMA #### [facility] (DEFAULT) [address] [address] Basophils/100 WBC (Bld) 0.5 % Normal [facility] Comment on above: Performed By: #### A RUMA #### [facility] (DEFAULT) [address] [place] [address] DIFF STATUS Electronic Differential Normal [facility] Comment on above: Performed By: #### A RUMA #### [facility] (DEFAULT) [address] [address] Eosinophils (Bld) [#/Vol] 0.08 10*3/uL Normal 0.00-0.48 [facility] Comment on above: Performed By: #### A RUMA #### [facility] (DEFAULT) [address] [address] Eosinophils/100 WBC (Bld) 1.4 % Normal [facility] Comment on above: Performed By: #### A RUMA #### [facility] (DEFAULT) [address] [address] Hematocrit (Bld) [Volume fraction] 27.2 % Low 39.6-48.8 [facility] Comment on above: Performed By: #### A RUMA #### [facility] (DEFAULT) [address] [address] Hemoglobin (Bld) [Mass/Vol] 9.4 g/dL Low 13.4-16.8 [facility] Comment on above: Performed By: #### A RUMA #### [facility] (DEFAULT) [address] [address] Immature Grans % 1.4 % Normal [facility] Comment on above: Performed By: #### A RUMA #### [facility] (DEFAULT) [address] [address] Immature Grans Absolute 0.08 K/uL High <=0.07 [facility] Comment on above: Performed By: #### A RUMA #### [facility] (DEFAULT) [address] [address] Lymphocytes (Bld) [#/Vol] 1.58 10*3/uL Normal 0.83-3.57 [facility] Comment on above: Performed By: #### A RUMA #### [facility] (DEFAULT) [address] [address] Lymphocytes/100 WBC (Bld) 28.5 % Normal [facility] Comment on above: Performed By: #### A RUMA #### [facility] (DEFAULT) [address] [place] [address] MCV (RBC) [Entitic vol] 94.8 fL High 79.0-94.5 [facility] Comment on above: Performed By: #### A RUMA #### [facility] (DEFAULT) [address] [place] [address] Mean Cell Hgb 32.8 pg Normal 26.1-33.3 [facility] Comment on above: Performed By: #### A RUMA #### [facility] (DEFAULT) [address] [address] Mean Cell Hgb Conc 34.6 g/dL Normal 31.9-36.5 [facility] Comment on above: Performed By: #### A RUMA #### [facility] (DEFAULT) [address] [address] Monocytes (Bld) [#/Vol] 0.42 10*3/uL Normal 0.24-0.93 [facility] Comment on above: Performed By: #### A RUMA #### [facility] (DEFAULT) [address] [address] Monocytes/100 WBC (Bld) 7.6 % Normal [facility] Comment on above: Performed By: #### A RIGOBERTOH #### [facility] (DEFAULT) [address] [address] Nucleated RBC 0.0 /100 WBC Normal <=0.2 [facility] Comment on above: Performed By: #### A RUMA #### [facility] (DEFAULT) [address] [address] Platelet mean volume (Bld) [Entitic vol] 10.0 fL Normal 8.7-12.3 [facility] Comment on above: Performed By: #### A RUMA #### [facility] (DEFAULT) [address] [address] Platelets (Bld) [#/Vol] 196 10*3/uL Normal 146-337 [facility] Comment on above: Performed By: #### A RUMA #### [facility] (DEFAULT) [address] [place] [address] RBC (Bld) [#/Vol] 2.87 10*6/uL Low 4.38-5.83 [facility] Comment on above: Performed By: #### A RUMA #### [facility] (DEFAULT) [address] [place] [address] RBC Distribution 13.4 % Normal 10.9-14.3 [facility] Comment on above: Performed By: #### A RUMA #### [facility] (DEFAULT) [address] [place] [address] Segs + Bands Auto 60.6 % Normal [facility] Comment on above: Performed By: #### A RUMA #### [facility] (DEFAULT) [address] [place] [address] Segs + Bands,Absolute Auto 3.36 K/uL Normal 1.57-6.19 [facility] Comment on above: Performed By: #### A RUMA #### [facility] (DEFAULT) [address] [place] [address] WBC (Bld) [#/Vol] 5.55 10*3/uL Normal 3.73-10.10 [facility] Comment on above: Performed By: #### A RUMA #### [facility] (DEFAULT) [address] [place] [address] CHEM 7 (LYTES,BUN,CREA,GLUC) on 11-08-2024 Anion gap [Moles/Vol] 17 mmol/L 7 - 17 mmol/L [facility] Chloride [Moles/Vol] 92 mmol/L Low 98 - 10 8 mmol/L [facility] CO2 [Moles/Vol] 32 mmol/L High 21 - 31 mmol/L [facility] Creatinine [Mass/Vol] 5.86 mg/dL High 0.70 - 1.30 mg/dL [facility] eGFR, CKD-EPI, Male 11 Low - PINF [facility] Comment on above: Reported eGFR is bas ed on the CKD-EPI 2020 equation using creatinine, age, and sex. Glucose [Mass/Vol] 155 mg/dL High 70 - 99 mg/dL [facility] Osmolality Calc [Osmolality] 296 [facility] Potassium [Moles/Vol] 3.9 mmol/L 3.5 - 5.0 mmol/L [facility] Sodium [Moles/Vol] 137 mmol/L 135 - 145 mmol/L [facility] Urea nitrogen [Mass/Vol] 28 mg/dL High 7 - 25 mg/dL [facility] Urea nitrogen/Creatinine [Mass ratio] 5 mg/mg [facility] Anion gap [Moles/Vol] 17 mmol/L Normal 7-17 [facility] Comment on above: Performed By: #### H [id number] #### [facility] (DEFAULT) [address] [place] [address] 82720 Chloride [Moles/Vol] 92 mmol/L Low 98-108 [facility] Comment on above: Performed By: #### H SVG12 #### [facility] (DEFAULT) [address] [place] [address] 23501 CO2 [Moles/Vol] 32 mmol/L High 21-31 [facility] Comment on above: Performed By: #### H SVG12 #### [facility] (DEFAULT) [address] [place] [address] Creatinine [Mass/Vol] 5.86 mg/dL High 0.70-1.30 [facility] Comment on above: Performed By: #### H SVG12 #### [facility] (DEFAULT) [address] [place] [address] 10833 GFR/1.73 sq M.predicted among non-blacks MDRD (S/P/Bld) [Vol rate/Area] 11 mL/min/{1.73_m2} Low >=60 [facility] Comment on above: Result Comment: Repo rted eGFR is based on the CKD-EPI 2020 equation using creatinine, age, and sex. Performed By: #### H SVG12 #### [facility] (DEFAULT) [address] [place] [address] 57944 Glucose [Mass/Vol] 155 mg/dL High 70-99 [facility] Comment on above: Performed By: #### H SVG12 #### [facility] (DEFAULT) [address] [place] [address] 60492 Osmolality [Osmolality] 296 mosm/kg Normal 278-305 [facility] Comment on above: Performed By: #### H SVG12 #### [facility] (DEFAULT) [address] [place] [address] 10164 Potassium [Moles/Vol] 3.9 mmol/L Normal 3.5-5.0 [facility] Comment on above: Performed By: #### H SVG12 #### [facility] (DEFAULT) [address] [place] [address] 14948 Sodium [Moles/Vol] 137 mmol/L Normal 135-145 [facility] Comment on above: Performed By: #### H SVG12 #### [facility] (DEFAULT) [address] [place] [address] 87204 Urea nitrogen [Mass/Vol] 28 mg/dL High 7-25 [facility] Comment on above: Performed By: #### H SVG12 #### [facility] (DEFAULT) [address] [place] [address] 75495 Urea nitrogen/Creatinine [Mass ratio] 5 mg/mg Normal [facility] Comment on above: Performed By: #### H SVG12 #### [facility] (DEFAULT) [address] [place] [address] 56638 CMV IGG ABon 11-08-2024 CMV IgG Ql Positive Abnormal Negative [facility] Interpretation and review of laboratory results Abnormal [facility] CMV IgG Antibody Positive Abnormal Negative [facility] Comment on above: Performed By: #### A LCOSU #### [facility] (DEFAULT) [address] [place] [address] 47991 EBV VCA IGG ABon 11-08-2024 EBV capsid IgG Ql (S) Positive Abnormal Negative [facility] Interpretation and review of laboratory results Abnormal [facility] EBV VCA IgG Antibody Positive Abnormal Negative [facility] Comment on above: Performed By: #### S URGP #### [facility] (DEFAULT) [address] [place] [address] 01915 GGTon 11-08-2024 Gamma glutamyl transferase [Catalytic activity/Vol] 25 U/L 8 - 64 U/L [facility] Gamma glutamyl transferase [Catalytic activity/Vol] 25 U/L Normal 8-64 [facility] Comment on above: Performed By: #### H SVG12 #### [facility] (DEFAULT) [address] [place] [address] 64826 HEMOGLOBIN A1Con 11-08-2024 Average glucose Estimated from glycated hemoglobin (Bld) [Mass/Vol] 140 mg/dL [facility] HbA1c (Bld) [Mass fraction] 6.5 % High 4.7 - 5.6 % [facility] Interpretation and review of laboratory results Abnormal [facility] Glucose [Mass/Vol] 140 mg/dL Normal [facility] Comment on above: Performed By: #### C A199 #### [facility] (DEFAULT) [address] [place] [address] 70750 Hemoglobin A1C HPLC 6.5 % High 4.7-5.6 [facility] Comment on above: Performed By: #### C A199 #### [facility] (DEFAULT) [address] [place] [address] 27688 HEPATITIS A IGM ABon 025 HAV IgM IA Ql Negative Negative [facility] Hepatitis A IgM Ab Negative Normal Negative [facility] Comment on above: Performed By: #### A LCOSU #### [facility] (DEFAULT) [address] [address] HEPATITIS B CORE AB,TOTAL (I GG+IGM)on 11-08-2024 HBV core IgG+IgM Ql (S) Negative Negative [facility] Hep B Core Ab,Total (IgG+IgM) Negative Normal Negative [facility] Comment on above: Performed By: #### A LCOSU #### [facility] (DEFAULT) [address] [place] [address] 55745 HEPATITIS B SURFACE ANTIBODY on 11-08-2024 HBV surface Ab IA Ql (S) Positive Abnormal Negative [facility] Comment on above: A positive result in dicates immunity through past immunization or prior infection. Interpretation and review of laboratory results Abnormal [facility] Hep B Surface Ab Positive Abnormal Negative [facility] Comment on above: Result Comment: A po sitive result indicates immunity through past immunization or prior infection. Performed By: #### H BSAG, HSVM, HBSAB #### [facility] (DEFAULT) [address] [address] HEPATITIS B SURFACE ANTIGENo n 11-08-2024 HBV surface Ag Ql (S) Negative Negative [facility] Hepatitis B Surface Ag Negative Normal Negative [facility] Comment on above: Performed By: #### H BSAG, HSVM, HBSAB #### [facility] (DEFAULT) [address] [place] [address] 84931 HEPATITIS C ANTIBODYOrdered By: John Romano on 11-08-2024 HCV Ab Ql (S) Negative Negative [facility] HEPATITIS C ANTIBODYon 11-08 Hepatitis C Antibody Negative Normal Negative [facility] Comment on above: Performed By: #### C A199 #### [facility] (DEFAULT) [address] [place] [address] 53331 HIV 1 AND 2 ANTIBODIES/P24 A NTIGENon 11-08-2024 HIV 1+2 Ab+HIV1 p24 Ag IA Ql Non-Reactive Non Reactive [facility] HIV-1/HIV-2 Ab With p24 Antigen Non-Reactive Normal Non Reactive [facility] Comment on above: Performed By: #### A LCOSU #### [facility] (DEFAULT) [address] [address] HLA TYPING (SOLID ORGAN)on 0 11-08-2024 A 2,11 [facility] Comment on above: Performed By: #### A LCOSU #### [facility] (DEFAULT) [address] [address] B 62,56 [facility] Comment on above: Performed By: #### A LCOSU #### [facility] (DEFAULT) [address] [address] BW 6,6 [facility] Comment on above: Performed By: #### A LCOSU #### [facility] (DEFAULT) [address] [address] C 1,9 [facility] Comment on above: Performed By: #### A LCOSU #### [facility] (DEFAULT) [address] [address] DPA1* 01:03 [facility] Comment on above: Performed By: #### A LCOSU #### [facility] (DEFAULT) [address] [address] DPA11 02:01 [facility] Comment on above: Result Comment: Test ing performed by NGS (next-generation sequencing) and/or SSOP (sequence-specific oligonucleotide probe methodology). Additional testing may be performed by real-time PCR (qPCR).Some of the reagents used for testing in the Clinical Histocompatibility Laboratory have yet to be approved by the FDA. Our certification by CLIA to perform high complexity tests allows us to use these reagents in the context of a stringent QC program, and obviates the need for FDA approval.Testing performed by the [facility] Clinical Histocompatibility Laboratory. [facility] number: [id number]. [place] number: [id number], Director: Sage Domingo, PhD, F([facility]). Performed By: #### A LCOSU #### [facility] (DEFAULT) [address] [place] [address] 37[address] DPB1* DPB11 23:01 [facility] Comment on above: Performed By: #### A LCOSU #### [facility] (DEFAULT) [address] [place] [address] 87288 DPB1*DPB1A 01:01 [facility] Comment on above: Performed By: #### A LCOSU #### [facility] (DEFAULT) [address] [place] [address] 46731 DQA1* 05:05 [facility] Comment on above: Performed By: #### A LCOSU #### [facility] (DEFAULT) [address] [place] [address] 15935 DQA1*DQA11 - [facility] Comment on above: Performed By: #### A LCOSU #### [facility] (DEFAULT) [address] [place] [address] 26344 DQB1 7,- [facility] Comment on above: Performed By: #### A LCOSU #### [facility] (DEFAULT) [address] [place] [address] 10829 DQB1* 03:01 [facility] Comment on above: Performed By: #### A LCOSU #### [facility] (DEFAULT) [address] [address] DQB1* - DQB11 - [facility] Comment on above: Performed By: #### A LCOSU #### [facility] (DEFAULT) [address] [place] [address],- Normal [facility] Comment on above: Performed By: #### A LCOSU #### [facility] (DEFAULT) [address] [place] [address] 27053 DR51,52,53 52 [facility] Comment on above: Performed By: #### A LCOSU #### [facility] (DEFAULT) [address] [place] [address] 77510 DRB1* 11:01 [facility] Comment on above: Performed By: #### A LCOSU #### [facility] (DEFAULT) [address] [place] [address] 11493 DRB1* - DRB11 - [facility] Comment on above: Performed By: #### A LCOSU #### [facility] (DEFAULT) [address] [place] [address] 05836 DRB3* 02:02 [facility] Comment on above: Performed By: #### A LCOSU #### [facility] (DEFAULT) [address] [place] [address] 31802 HLA A* 02:01 [facility] Comment on above: Performed By: #### A LCOSU #### [facility] (DEFAULT) [address] [place] [address] 86260 HLA A* - HLAAA 11:01 [facility] Comment on above: Performed By: #### A LCOSU #### [facility] (DEFAULT) [address] [place] [address] 15552 HLA B* 15:01 [facility] Comment on above: Performed By: #### A LCOSU #### [facility] (DEFAULT) [address] [place] [address] 87237 HLA B* - HLABBB 56:01 [facility] Comment on above: Performed By: #### A LCOSU #### [facility] (DEFAULT) [address] [place] [address] 17872 HLA C* 01:02 [facility] Comment on above: Performed By: #### A LCOSU #### [facility] (DEFAULT) [address] [address] HLA C* - HLACC 03:03 Normal [facility] Comment on above: Performed By: #### A LCOSU #### [facility] (DEFAULT) [address] [place] [address] 39631 HSV 1 AND 2 IGG ANTIBODYon 0 11-08-2024 HSV 1 IgG IA Qn (S) Positive Abnormal Negative [facility] HSV 2 IgG IA Qn (S) Negative Negative [facility] Interpretation and review of laboratory results Abnormal [facility] HSV 1 IgG Antibody Positive Abnormal Negative [facility] Comment on above: Performed By: #### H SVG12 #### [facility] (DEFAULT) [address] [address] HSV 2 IgG Antibody Negative Normal Negative [facility] Comment on above: Performed By: #### H SVG12 #### [facility] (DEFAULT) [address] [address] HSV IGM ANTIBODYon HSV I/II IgM Antibody Negative Normal Negative [facility] Comment on above: Performed By: #### H BSAG, HSVM, HBSAB #### [facility] (DEFAULT) [address] [address] M TUBERCULOSIS BY [place] CONNELL 11-08-2024 M. TB Mitogen-Nil 9.94 IU/mL Normal [facility] Comment on above: Order Comment: The M . Tuberculosis antigen levels cannot be correlated to stage or degree of infection, response to therapy or likelihood for progression to active disease. Results from QuantiFERON TB Gold Plus must be used in conjunction with individual epidemiological history, current medical status, and results of other diagnostic evaluation. Performed By: #### C A199 #### [facility] (DEFAULT) [address] [address] M. TB Nil 0.06 IU/mL Normal [facility] Comment on above: Order Comment: The M . Tuberculosis antigen levels cannot be correlated to stage or degree of infection, response to therapy or likelihood for progression to active disease. Results from QuantiFERON TB Gold Plus must be used in conjunction with individual epidemiological history, current medical status, and results of other diagnostic evaluation. Performed By: #### C A199 #### [facility] (DEFAULT) [address] [address] M. TB TB1-Nil 0.00 IU/mL Normal [facility] Comment on above: Order Comment: The M . Tuberculosis antigen levels cannot be correlated to stage or degree of infection, response to therapy or likelihood for progression to active disease. Results from QuantiFERON TB Gold Plus must be used in conjunction with individual epidemiological history, current medical status, and results of other diagnostic evaluation. Performed By: #### C A199 #### [facility] (DEFAULT) [address] [address] M. TB TB2-Nil 0.00 IU/mL Normal [facility] Comment on above: Order Comment: The M . Tuberculosis antigen levels cannot be correlated to stage or degree of infection, response to therapy or likelihood for progression to active disease. Results from QuantiFERON TB Gold Plus must be used in conjunction with individual epidemiological history, current medical status, and results of other diagnostic evaluation. Performed By: #### C A199 #### [facility] (DEFAULT) [address] [address] M. Tuberculosis by Quantiferon in tube Negative Normal Negative [facility] Comment on above: Order Comment: The M . Tuberculosis antigen levels cannot be correlated to stage or degree of infection, response to therapy or likelihood for progression to active disease. Results from QuantiFERON TB Gold Plus must be used in conjunction with individual epidemiological history, current medical status, and results of other diagnostic evaluation. Performed By: #### C A199 #### [facility] (DEFAULT) [address] [address] MAGNESIUMon 11-08-2024 Magnesium [Mass/Vol] 2 mg/dL 1.6 - 2 .6 mg/dL [facility] Magnesium [Mass/Vol] 2.0 mg/dL Normal 1.6-2.6 [facility] Comment on above: Performed By: #### H SVG12 #### [facility] (DEFAULT) [address] [address] No Panel InformationOrdered By: John Romano on 11-08-2024 Interpretation and review of laboratory results Normal [facility] No Panel Informationon 11-08 Interpretation and review of laboratory results Normal [facility] Interpretation and review of laboratory results Normal [facility] Interpretation and review of laboratory results Abnormal [facility] OSMOLALITYon 11-08-2024 Interpretation and review of laboratory results Normal [facility] Osmolality [Osmolality] 295 mosm/kg [facility] Osmolality, Serum 295 mOsm/kg Normal 278-305 [facility] Comment on above: Performed By: #### C A199 #### [facility] (DEFAULT) [address] [place] [address] PHOSPHATE, INORGANICon 11-08 Phosphate [Mass/Vol] 4.1 mg/dL 2.2 - 4 .6 mg/dL [facility] Phosphorous 4.1 mg/dL Normal 2.2-4.6 [facility] Comment on above: Performed By: #### A LCOSU #### [facility] (DEFAULT) [address] [place] [address] PRA CLASS (PRE-TRANSPLANT)on 11-08-2024 AB SPECIFICITY CLASS COMMENT Antibody Specificity testing performed by [employer]. cPRA calculation based on identification of HLA antibody specificities at MFI >2000 and/or presence of CREG antibodies. Normal [facility] Comment on above: Result Comment: Some of the reagents used for testing in the Clinical Histocompatibility Laboratory have yet to be approved by the FDA. Our certification by CLIA to perform high complexity tests allows us to use these reagents in the context of a stringent QC program, and obviates the need for FDA approval.Testing performed by the [facility] Clinical Histocompatibility Laboratory. [facility] number: [id number]. [place] number: [id number], Director: Sage Domingo, PhD, F([facility]). Performed By: #### A LCOSU #### [facility] (DEFAULT) [address] [place] [address] 94569 CLASS I SPECIFICITIES Not detected Normal [facility] Comment on above: Performed By: #### A LCOSU #### [facility] (DEFAULT) [address] [place] [address] 09634 CLASS II SPECIFICITIES Not detected Normal [facility] Comment on above: Performed By: #### A LCOSU #### [facility] (DEFAULT) [address] [place] [address] cPRA 0 % Normal 0 [facility] Comment on above: Performed By: #### A LCOSU #### [facility] (DEFAULT) [address] [place] [address] PROTEIN TOTALon 11-08-2024 Protein [Mass/Vol] 7 g/dL 6.4 - 8.3 g/dL [facility] Protein [Mass/Vol] 7.0 g/dL Normal 6.4-8.3 [facility] Comment on above: Performed By: #### A LCOSU #### [facility] (DEFAULT) [address] [place] [address] 60267 PSA, SCREENINGon 11-08-2024 Interpretation and review of laboratory results Normal [facility] Prostate specific Ag [Mass/Vol] 0.74 ng/mL NINF - 4.00 ng/mL [facility] Comment on above: This test was perfor med on the [employer] Immunoassay platform which is a 2-step sandwich chemiluminescent immunoassay. It is important to note that assays using different manufacturers and/or methods may not be comparable. [facility] PT,INR,PTTon 11-08-2024 aPTT Coag (PPP) [Time] 35.8 s High [facility] INR Coag (Bld) [Relative time] 1.1 {INR} 0.9 - 1.1 [facility] Interpretation and review of laboratory results Abnormal [facility] PT Coag (PPP) [Time] 14.5 s High [facility] aPTT Coag (Bld) [Time] 35.8 s High 24.0-34.3 [facility] Comment on above: Performed By: #### C A199 #### [facility] (DEFAULT) [address] [place] [address] INR Coag (PPP) [Relative time] 1.1 {INR} Normal 0.9-1.1 [facility] Comment on above: Performed By: #### C A199 #### [facility] (DEFAULT) [address] [place] [address] PT Coag (PPP) [Time] 14.5 s High 11.9-14.2 [facility] Comment on above: Performed By: #### C A199 #### [facility] (DEFAULT) [address] [place] [address] 21317 PTH INTACTon 11-08-2024 Interpretation and review of laboratory results Abnormal [facility] Parathyrin.intact [Mass/Vol] 502.3 pg/mL High 14.0 - 72.0 pg/mL [facility] Intact PTH 502.3 pg/mL High 14.0-72.0 [facility] Comment on above: Performed By: #### A LCOSU #### [facility] (DEFAULT) [address] [place] [address] 11045 SYPHILIS AB W/REFLEX RPRon 0 11-08-2024 Syphilis IgG/IGM Total Non-Reactive Normal Non Reactiv e [facility] Comment on above: Performed By: #### S URGP #### [facility] (DEFAULT) [address] [place] [address] 29660 T. pallidum Ab Ql (S)on 10-26 T. pallidum IgG Ql (S) Non-Reactive Non Reactiv e [facility] TOXICOLOGY DRUG SCREEN, SERU 11-08-2024 Amphetamines Screen, Serum Not detected Normal [facility] Comment on above: Result Comment: Repo rting Limit: 20 ng/mL Synonym(s): Adderall; Amfetamine; Dextroamphetamine; Levoamphetamine Analysis by Enzyme-Linked Immunosorbent Assay (VINICIO) Performed By: #### C A199 #### [facility] (DEFAULT) [address] [address] Barbiturates Screen, Serum Not detected Normal [facility] Comment on above: Result Comment: Repo rting Limit: 0.040 mcg/mL Analysis by Enzyme-Linked Immunosorbent Assay (VINICIO) Performed By: #### C A199 #### [facility] (DEFAULT) [address] [address] Benzodiazepine Screen, Serum Not detected Normal [facility] Comment on above: Result Comment: Repo rting Limit: 100 ng/mL Synonym(s): Sedative; Tranquilizer Analysis by Enzyme-Linked Immunosorbent Assay (VINICIO) Performed By: #### C A199 #### [facility] (DEFAULT) [address] [address] Cannabinoids Screen, Serum Not detected Normal [facility] Comment on above: Result Comment: Repo rting Limit: 10 ng/mL Synonym(s): Cannabis; Hashish; Marihuana; Marijuana; THC Analysis by Enzyme-Linked Immunosorbent Assay (VINICIO) Performed By: #### C A199 #### [facility] (DEFAULT) [address] [address] Cocaine/Metabolites Screen, Serum Not detected Normal [facility] Comment on above: Result Comment: Repo rting Limit: 20 ng/mL Synonym(s): Blow; Crack; Snow Analysis by Enzyme-Linked Immunosorbent Assay (VINICIO) Performed By: #### C A199 #### [facility] (DEFAULT) [address] [address] Fentanyl/Acetyl Fentanyl Screen, Serum Not detected Normal [facility] Comment on above: Result Comment: Repo rting Limit: 0.50 ng/mL Analysis by Enzyme-Linked Immunosorbent Assay (VINICIO) Performed By: #### C A199 #### [facility] (DEFAULT) [address] [address] Methamphetamine/MDMA Screen, Serum Not detected Normal [facility] Comment on above: Result Comment: Repo rting Limit: 20 ng/mL Synonym(s): Desoxyn(R); Ecstasy; Meth; Denise Analysis by Enzyme-Linked Immunosorbent Assay (VINICIO) Performed By: #### C A199 #### [facility] (DEFAULT) [address] [address] Methodone Screen, Serum Not detected Normal [facility] Comment on above: Result Comment: Repo rting Limit: 25 ng/mL Analysis by Enzyme-Linked Immunosorbent Assay (VINICIO) Performed By: #### C A199 #### [facility] (DEFAULT) [address] [address] Opiates Screen, Serum Not detected Normal [facility] Comment on above: Result Comment: Repo rting Limit: 20 ng/mL Synonym(s): Codeine; Heroin; Morphine; Opium Analysis by Enzyme-Linked Immunosorbent Assay (VINICIO) Performed By: #### C A199 #### [facility] (DEFAULT) [address] [address] Oxycodone/Oxymorphone Screen, Serum Not detected Normal [facility] Comment on above: Result Comment: Repo rting Limit: 10 ng/mL Analysis by Enzyme-Linked Immunosorbent Assay (VINICIO) This test was developed and its performance characteristics determined by [employer]. It has not been cleared or approved by the US Food and Drug Administration. Digital data review may have taken place remotely by qualified [facility] staff utilizing a secure VPN connection for some or all of the reported results. This is in accordance with and follows CLIA regulations. Test Performed by: [employer] [address] [place] [id number] Performed By: #### C A199 #### [facility] (DEFAULT) [address] [address] Phencyclidine Screen, Serum Not detected Normal [facility] Comment on above: Result Comment: Repo rting Limit: 10 ng/mL Synonym(s): Omar Dust; PCP; Sherm Analysis by Enzyme-Linked Immunosorbent Assay (VINICIO) Performed By: #### C A199 #### [facility] (DEFAULT) [address] [place] [address] TYPE AND SCREENon 11-08-2024 ABO/RH(D) TYPE Positive [facility] Specimen Expiration 11/11/2024 23:59 [facility] ABO/RH(D) TYPE Positive Normal [facility] Comment on above: Performed By: #### H SVG12 #### [facility] (DEFAULT) [address] [place] [address] Specimen Expiration 11/11/2024 23:59 Normal [facility] Comment on above: Performed By: #### H SVG12 #### [facility] (DEFAULT) [address] [place] [address] URIC ACIDon 11-08-2024 Urate [Mass/Vol] 4.5 mg/dL 3.5 - 7.0 mg/dL [facility] Urate [Mass/Vol] 4.5 mg/dL Normal 3.5-7.0 [facility] Comment on above: Performed By: #### A BORLaurie #### [facility] (DEFAULT) [address] [address] VARICELLA IGG AB (IMM STATUS )on 11-08-2024 VZV IgG Ql (S) Positive Positive [facility] Comment on above: Prior exposure to e varicella zoster virus may cause measurable varicella zoster IgG antibody. A positive result indicates immunity through past immunization or prior infection. VZV IgG Qn (S) 3.4 [facility] Comment on above: THIS IS A QUALITATIV E ASSAY. The numeric value is not necessarily indicative of the amount of anti-Measles, Mumps, Rubella, or VZV IgG antibody present. Results should be interpreted in conjunction with clinical and epidemological data. [facility] Varicella Immune Status IgG Antibody Positive Normal Positive [facility] Comment on above: Result Comment: Prio r exposure to the varicella zoster virus may cause measurable varicella zoster IgG antibody. A positive result indicates immunity through past immunization or prior infection. Performed By: #### S URGP #### [facility] (DEFAULT) [address] [place] [address] Varicella Immune Status IgG Index 3.4 Normal [facility] Comment on above: Result Comment: THIS IS A QUALITATIVE ASSAY. The numeric value is not necessarily indicative of the amount of anti-Measles, Mumps, Rubella, or VZV IgG antibody present. Results should be interpreted in conjunction with clinical and epidemological data. Performed By: #### S URGP #### [facility] (DEFAULT) [address] [place] [address] XR CHEST PA AND LATERAL 2 EWSon 11-08-2024 XR CHEST PA AND LATERAL 2 VIEWS EXAM: XR CHEST PA AND LATERAL 2 VIEWS, 11/08/2024 13:56 PM COMPARISON: No prior studies available for comparison. CLINICAL INDICATIONS: pre kidney transplant evaluation RELEVANT CLINICAL HISTORY: Z01.818:Pre-transplant evaluation for kidney transplant FINDINGS: (Adequate technique) Implanted Devices: Left chest port with its tip at cavoatrial junction. Lungs: Clear, without mass, interstitial disease, or consolidation. Pleural Spaces: No pleural effusion. No pneumothorax. Mediastinum and Nini: Normal Cardiac silhouette and great vessels: Normal heart size. Unremarkable aorta. Chest Wall: Normal IMPRESSION: No acute cardiopulmonary disease Normal [facility] XR Chest PA and Lateralon IMPRESSION: No acute cardiopulmonary disease OLOGY EXAM: XR CHEST PA AN D LATERAL 2 VIEWS, 11/08/2024 13:56 PM COMPARISON: No prior studies available for comparison. CLINICAL INDICATIONS: pre kidney transplant evaluation RELEVANT CLINICAL HISTORY: Z01.818:Pre-transplant evaluation for kidney transplant FINDINGS: (Adequate technique) Implanted Devices: Left chest port with its tip at cavoatrial junction. Lungs: Clear, without mass, interstitial disease, or consolidation. Pleural Spaces: No pleural effusion. No pneumothorax. Mediastinum and Nini: Normal Cardiac silhouette and great vessels: Normal heart size. Unremarkable aorta. Chest Wall: Normal RADIOLOGY Anuradha Belcher MD - 11/08/2024 EXAM: XR CHEST PA AND LATERAL 2 VIEWS, 11/08/2024 13:56 PM COMPARISON: No prior studies available for comparison. CLINICAL INDICATIONS: pre kidney transplant evaluation RELEVANT CLINICAL HISTORY: Z01.818:Pre-transplant evaluation for kidney transplant FINDINGS: (Adequate technique) Implanted Devices: Left chest port with its tip at cavoatrial junction. Lungs: Clear, without mass, interstitial disease, or consolidation. Pleural Spaces: No pleural effusion. No pneumothorax. Mediastinum and Nini: Normal Cardiac silhouette and great vessels: Normal heart size. Unremarkable aorta. Chest Wall: Normal IMPRESSION IMPRESSION: No acute cardiopulmonary disease [facility] Radiology Study observation (narrative) [facility] XR Chest PA and LateralOrder ed By: Anuradha Belcher on 11-08-2024 [facility] Work Phone: Operative Reporton Operative Report Normal [facility] MR/BMS.BVSon 09-30-2024 MR/BMS.BVS Normal [facility] Gastroenterology Visit Repor ton 09-18-2024 Gastroenterology Visit Report Normal [facility] AV Fistula/Dialysis Graft Sc anon 09-13-2024 AV Fistula/Dialysis Graft Scan Normal [facility] CNCOon 09-13-2024 CNCO Letter Text Normal [facility] Emergency Department Summary on 09-12-2024 Emergency Department Summary Normal [facility] CNPNon 09-11-2024 CNPN Telephone (TXCTGL) -------- REGINALDO HUFFMAN ([id number]) 1970 M Date Time Provider Department 09/11/24 KIDNEY TXP COORDINATORS TXCTGL During your visit today, we recorded the following information about you: [place] 09/11/2024 1:04 PM Addendum KIDNEY TRANSPLANT REFERRAL (enter above which organ the patient needs; Kidney, Pancreas or Kidney/Pancreas) Is this referral for a Safety Net or HIV Patient? No (Safety Net = Pt needing an additional transplant within 12 months for any organ) Reginaldo Huffman [id number] Spoke with: Patient Best Contact FOR PANCREAS AND KIDNEY/PANCREAS TRANSPLANT AGE 55+ is a HARD STOP If patient is NOT on Dialysis AND has a GFR >21 is a HARD STOP REFERRING ORNAMENTAL METAL WORKER / PHYSICIAN: Radha Nayak Have you ever been evaluated for kidney/pancreas transplant? No If YES, where? N/A Status of listing/evaluation: N/A Have you had a previous transplant? No Have you had one or both kidneys removed: No Reason: N/A OUT OF STATE MEDICAID PATIENTS: APC - run the Medicaid through [employer] to determine if the coverage is Out of Network (OON) with [facility]. If the Medicaid is OON, inform the patient that their PCP will need to send a referral to the Out of State Medicaid for a Transplant Evaluation. Have you been seen at another Transplant Center that was in-network with your Out of State (OOS) Medicaid and denied a Transplant Evaluation? No Has your PCP sent in a referral for transplant to your (OOS) Medicaid case technician? No If the patient has Medicare A/B as their primary insurance please ask the patient for their secondary insurance coverage. Height: 5.8 Weight: 200 BMI: 30.4 KIDNEY TRANSPLANT BMI>42 is a HARD STOP PANCREAS TRANSPLANT BMI>32 is a HARD STOP Have you had weight loss without trying within the last 30 days? No If YES, please complete the Malnutrition Screening Tool (MST). Malnutrition Screening Tool (MST) If YES, how much weight have you lost? 2.2-11 lbs (1-5 Kg)- 1 Weight loss score: 0 Have you been eating poorly in the last week because of a decreased appetite? No- 0 Appetite score: 0 Total MST score (weight loss + appetite scores): 0 Score of 2 or more = referral to registered dietitian for an individual appointment - ____ Any history of Smoking/Vaping/Nicotine products: Ex-smoker quit 2004 If a current smoker, this is a HARD STOP Packs/Day 1 X # of Yrs smoked 6 = Oxygen use: NO If on continuous oxygen this is a HARD STOP Blood Transfusion: Are you willing to accept a blood transfusion if needed? Yes If NO this is a HARD STOP Assistive devices: No assistive device Activity Level: Light activity COPD/Emphysema/Other pulmonary problem: No [facility] Mary Days: Dialysis start date: 05/12/2024 If not on dialysis, what is your GFR? N/A Do you have Diabetes? Type 1 Age diagnosed: 9 Insulin dependent: Yes Hypoglycemic unawareness: Yes Have you had a Kidney Biopsy: No Have you had a Liver Biopsy: No Dx of Cirrhosis? No Dx of Hepatitis? No Hx of ETOH? No Hx of Drug use? No Hx of Psychiatric disorder? No Dx of HIV/AIDS? No if yes, Infectious Disease doctor name/where? Hx of Cancer? Yes, Colon 2014 [facility] Hx of Hypertension? Yes Hx of [place]/Heart Attack? No Hx of TIA/CVA or Stroke? No Are you on a blood thinner? No If YES which medication are you on? N/A Have you had a CABG or STENTS? No Have you ever had a Stress Test? [facility]. [address] [place] [address]. [phone]. 2019 Have you ever had an Echo? No Have you ever had a Cardiac Cath? No CT Abdomen/Pelvis: Yes. If yes, date and location: 4 month ago. [facility]. [address] [place] [address]. . Mammogram: No Pap Test: No Colonoscopy: [facility]. [address] [place] [address]. [phone]. 2019. 4 month ago. Hx of Lupus? No Sickle Cell Trait or Disease: No Have you had any prior surgeries? yes Colon cancer 2013 Do you have a potential living donor? No MyCHART Is the patient signed up for Meetup? No If YES - send patient the Kidney/Pancreas New Referral Message. If NO - obtain their email address AND send Meet My Friendshart sign up information: email address: [email or web address] Is the patient okay with having a Virtual Appt: No ( patient does not have a computer) What facilities do we need outside records from: [facility]. [address] [place] [address]. [phone]. 2019 Have records been (more content not included)... Normal [facility] Absolute lymphocyte countOrd ered By: Jimmie Ibarra on 08-14-2024 Lymphocytes Auto (Unsp spec) [#/Vol] 1.23 10*3/uL 0.83-4.51 [facility] Absolute neutrophil countOrd ered By: Jimmie Ward on 08-14-2024 Neutrophils (Bld) [#/Vol] 3.0 10*3/uL 2.0-7.7 [facility] Albumin to globulin ratioOrd ered By: Jimmie Ibarra on 08-14-2024 Albumin/Globulin [Mass ratio] 0.9 {ratio} 0.9-2.4 [facility] Automated lymphocyte count a s percentage of total leukocytesOrdered By: Jimmie Ibarra on 08-14-2024 Lymphocytes/100 WBC Auto (Unsp spec) 26.1 % 19-41 [facility] Basophil percentageOrdered B y: Jimmie [facility] on 08-14-2024 Basophils/100 WBC (Bld) 0.6 % 0-1 [facility] Bilirubin, totalOrdered By: Jimmie Ward on 08-14-2024 Bilirubin [Mass/Vol] 0.30 mg/dL 0.20-1.00 [facility] Comment on above: For patients on eltr ombopag therapy, use of Dimension [place] TBIL is not recommended. Blood urea nitrogen (BUN)/cr eatinine ratioOrdered By: Jimmie Ward on 08-14-2024 Urea nitrogen/Creatinine [Mass ratio] 7.6 mg/mg Low 10-20 [facility] CBC W/Diff, Automatedon 07-28 Absolute Lymph 1.23 X10 3/uL Normal 0.83-4.51 [facility] Comment on above: Performed By: #### L 503.6030, L500.4050, L100.0100, L504.2610, L503.6550 ####[facility] [address] [place], [address] Absolute Neut 3.0 X10 3/uL Normal 2.0-7.7 [facility] Comment on above: Performed By: #### L 503.6030, L500.4050, L100.0100, L504.2610, L503.6550 ####[facility] [address] [place], [address] Basophils/100 WBC (Bld) 0.6 % Normal 0-1 [facility] Comment on above: Performed By: #### L 503.6030, L500.4050, L100.0100, L504.2610, L503.6550 ####[facility] [address] [place], [address] Eosinophils/100 WBC (Bld) 1.5 % Normal 0-5 [facility] Comment on above: Performed By: #### L 503.6030, L500.4050, L100.0100, L504.2610, L503.6550 ####[facility] [address] [place], [address] Erythrocyte distribution width (RBC) [Ratio] 15.9 % High 11.6-14.6 [facility] Comment on above: Performed By: #### L 503.6030, L500.4050, L100.0100, L504.2610, L503.6550 ####[facility] [address] [place], [address] Hematocrit (Bld) [Volume fraction] 21.8 % Low 40-54 [facility] Comment on above: Performed By: #### L 503.6030, L500.4050, L100.0100, L504.2610, L503.6550 ####[facility] [address] [place], [address] Hemoglobin (Bld) [Mass/Vol] 7.3 g/dL Low 13.0-16.5 [facility] Comment on above: Performed By: #### L 503.6030, L500.4050, L100.0100, L504.2610, L503.6550 ####[facility] [address] [place], [address] IG% 2.300 High 0.0-0.9 [facility] Comment on above: Result Comment: IG% - Immature Granulocytes (promyelocytes, myelocytes andmetamyelocytes) > 1% indicates that a LEFT SHIFT is Present. Performed By: #### L 503.6030, L500.4050, L100.0100, L504.2610, L503.6550 ####[facility] [address] [place], [address] Lymphocytes/100 WBC (Bld) 26.1 % Normal 19-41 [facility] Comment on above: Performed By: #### L 503.6030, L500.4050, L100.0100, L504.2610, L503.6550 ####[facility] [address] [place], [address] MCH (RBC) [Entitic mass] 31.7 pg Normal 27.0-32.0 [facility] Comment on above: Performed By: #### L 503.6030, L500.4050, L100.0100, L504.2610, L503.6550 ####[facility] [address] [place], [address] MCHC (RBC) [Mass/Vol] 33.5 g/dL Normal 32-36 [facility] Comment on above: Performed By: #### L 503.6030, L500.4050, L100.0100, L504.2610, L503.6550 ####[facility] [address] [place], [address] MCV (RBC) [Entitic vol] 94.8 fL High 80-94 [facility] Comment on above: Performed By: #### L 503.6030, L500.4050, L100.0100, L504.2610, L503.6550 ####[facility] [address] [place], [address] Monocytes/100 WBC (Bld) 6.6 % Normal 0-10 [facility] Comment on above: Performed By: #### L 503.6030, L500.4050, L100.0100, L504.2610, L503.6550 ####[facility] [address] [place], [address] Neutrophils/100 WBC (Bld) 62.9 % Normal 47-70 [facility] Comment on above: Performed By: #### L 503.6030, L500.4050, L100.0100, L504.2610, L503.6550 ####[facility] [address] [place], [address] Nucleated RBC (Bld) [#/Vol] 0 10*3/uL Normal 0-5 [facility] Comment on above: Performed By: #### L 503.6030, L500.4050, L100.0100, L504.2610, L503.6550 ####[facility] [address] [place], [address] Platelet mean volume (Bld) [Entitic vol] 11.2 fL Normal 6.2-12.0 [facility] Comment on above: Performed By: #### L 503.6030, L500.4050, L100.0100, L504.2610, L503.6550 ####[facility] [address] [place], [address] Platelets (Bld) [#/Vol] 137 10*3/uL Low 150-450 [facility] Comment on above: Performed By: #### L 503.6030, L500.4050, L100.0100, L504.2610, L503.6550 ####[facility] [address] [place], [address] RBC (Bld) [#/Vol] 2.30 10*6/uL Low 4.6-6.2 [facility] Comment on above: Performed By: #### L 503.6030, L500.4050, L100.0100, L504.2610, L503.6550 ####[facility] [address] [place], [address] RDW SD 54.5 fl High 35.1-43.9 [facility] Comment on above: Performed By: #### L 503.6030, L500.4050, L100.0100, L504.2610, L503.6550 ####[facility] [address] [place], [address] WBC (Bld) [#/Vol] 4.7 10*3/uL Normal 4.4-11.0 [facility] Comment on above: Performed By: #### L 503.6030, L500.4050, L100.0100, L504.2610, L503.6550 ####[facility] [address] [place], [address] Carbon dioxide measurementOr dered By: Jimmie Ibarra on 08-14-2024 CO2 [Moles/Vol] 32.0 mmol/L 21.0-32.0 [facility] Chloride measurementOrdered By: Jimmie Ibarra on 08-14-2024 Chloride [Moles/Vol] 103 mmol/L 98-107 [facility] Comprehensive Metabolic Prof ilon 08-14-2024 Albumin [Mass/Vol] 3.0 g/dL Low 3.2-5.0 [facility] Comment on above: Order Comment: 1 Performed By: #### L 503.6030, L500.4050, L100.0100, L504.2610, L503.6550 ####[facility] [address] [place], [address] Albumin/Globulin [Mass ratio] 0.9 {ratio} Normal 0.9-2.4 [facility] Comment on above: Order Comment: 1 Performed By: #### L 503.6030, L500.4050, L100.0100, L504.2610, L503.6550 ####[facility] [address] [place], [address] ALK P 49 U/L Normal 45-117 [facility] Comment on above: Order Comment: 1 Performed By: #### L 503.6030, L500.4050, L100.0100, L504.2610, L503.6550 ####[facility] [address] [place], [address] ALT [Catalytic activity/Vol] 15 U/L Low 16-61 [facility] Comment on above: Order Comment: 1 Performed By: #### L 503.6030, L500.4050, L100.0100, L504.2610, L503.6550 ####[facility] [address] [place], [address] AST [Catalytic activity/Vol] 11 U/L Low 15-37 [facility] Comment on above: Order Comment: 1 Performed By: #### L 503.6030, L500.4050, L100.0100, L504.2610, L503.6550 ####[facility] [address] [place], [address] Bilirubin [Mass/Vol] 0.30 mg/dL Normal 0.20-1.00 [facility] Comment on above: Order Comment: 1 Result Comment: For patients on eltrombopag therapy, use of Dimension [place] TBIL is not recommended. Performed By: #### L 503.6030, L500.4050, L100.0100, L504.2610, L503.6550 ####[facility] [address] [place], [address] BUN/CRE 7.6 RATIO Low 10-20 [facility] Comment on above: Order Comment: 1 Performed By: #### L 503.6030, L500.4050, L100.0100, L504.2610, L503.6550 ####[facility] [address] [place], [address] CA,Total 8.4 mg/dL Low 8.5-10.1 [facility] Comment on above: Order Comment: 1 Performed By: #### L 503.6030, L500.4050, L100.0100, L504.2610, L503.6550 ####[facility] [address] [place], [address] Chloride [Moles/Vol] 103 mmol/L Normal 98-107 [facility] Comment on above: Order Comment: 1 Performed By: #### L 503.6030, L500.4050, L100.0100, L504.2610, L503.6550 ####[facility] [address] [place], [address] CO2 [Moles/Vol] 32.0 mmol/L Normal 21.0-32.0 [facility] Comment on above: Order Comment: 1 Performed By: #### L 503.6030, L500.4050, L100.0100, L504.2610, L503.6550 ####[facility] [address] [place], [address] Creatinine [Mass/Vol] 5.37 mg/dL High 0.70-1.30 [facility] Comment on above: Order Comment: 1 Result Comment: The validity of the calculated GFR GFRAA in patients over70 years has not been determined. Clinical correlation isessential. Performed By: #### L 503.6030, L500.4050, L100.0100, L504.2610, L503.6550 ####[facility] [address] [place], [address] ECRCL 17.08 ml/min Normal [facility] Comment on above: Order Comment: 1 Performed By: #### L 503.6030, L500.4050, L100.0100, L504.2610, L503.6550 ####[facility] [address] [place], [address] EST GFR - AA 14 mL/min Low >60 [facility] Comment on above: Order Comment: 1 Result Comment: Afri can Angolan GFR Calc Performed By: #### L 503.6030, L500.4050, L100.0100, L504.2610, L503.6550 ####[facility] [address] [place], [address] GAP 2 Low 5-15 [facility] Comment on above: Order Comment: 1 Performed By: #### L 503.6030, L500.4050, L100.0100, L504.2610, L503.6550 ####[facility] [address] [place], [address] GFR/1.73 sq M.predicted among non-blacks MDRD (S/P/Bld) [Vol rate/Area] 12 mL/min/{1.73_m2} Low >60 [facility] Comment on above: Order Comment: 1 Result Comment: Non- GFR Calc Performed By: #### L 503.6030, L500.4050, L100.0100, L504.2610, L503.6550 ####[facility] [address] [place], [address] Globulin (S) [Mass/Vol] 3.5 g/dL Normal 2.2-4.2 [facility] Comment on above: Order Comment: 1 Performed By: #### L 503.6030, L500.4050, L100.0100, L504.2610, L503.6550 ####[facility] [address] [place], [address] Glucose [Mass/Vol] 190 mg/dL High 74-106 [facility] Comment on above: Order Comment: 1 Result Comment: Fast ing Glucose result greater than or equal to 126 mg/dLsuggests DIABETES MELLITUS per A.D.A. criteria. Performed By: #### L 503.6030, L500.4050, L100.0100, L504.2610, L503.6550 ####[facility] [address] [place], [address] Potassium [Moles/Vol] 4.1 mmol/L Normal 3.5-5.1 [facility] Comment on above: Order Comment: 1 Performed By: #### L 503.6030, L500.4050, L100.0100, L504.2610, L503.6550 ####[facility] [address] [place], [address] Sodium [Moles/Vol] 137 mmol/L Normal 136-145 [facility] Comment on above: Order Comment: 1 Performed By: #### L 503.6030, L500.4050, L100.0100, L504.2610, L503.6550 ####[facility] [address] [place], [address] T PROT 6.5 g/dL Normal 6.4-8.2 [facility] Comment on above: Order Comment: 1 Performed By: #### L 503.6030, L500.4050, L100.0100, L504.2610, L503.6550 ####[facility] [address] [place], [address] Urea nitrogen [Mass/Vol] 41 mg/dL High 7-18 [facility] Comment on above: Order Comment: 1 Performed By: #### L 503.6030, L500.4050, L100.0100, L504.2610, L503.6550 ####[facility] [address] [place], [address] Eosinophil percentageOrdered By: Jimmie Ibarra on 08-14-2024 Eosinophils/100 WBC (Bld) 1.5 % 0-5 [facility] Erythrocyte distribution wid th ratioOrdered By: Jimmie Ibarra on 08-14-2024 Erythrocyte distribution width (RBC) [Ratio] 15.9 % High 11.6-14.6 [facility] Erythrocyte distribution wid th standard deviationOrdered By: Jimmie Ibarra on 08-14-2024 Erythrocyte distribution width (RBC) [Ratio] 54.5 fl High 35.1-43.9 [facility] Ferritinon 08-14-2024 Ferritin [Mass/Vol] 507 ng/mL High 26-388 [facility] Comment on above: Order Comment: 1 Performed By: #### L 503.6030, L500.4050, L100.0100, L504.2610, L503.6550 ####[facility] [address] [place], [address] Ferritin measurementOrdered By: Jimmie Ibarra on 08-14-2024 Ferritin [Mass/Vol] 507 ng/mL High 26-388 [facility] Glomerular filtration rate ( GFR) estimationOrdered By: Jimmie Ibarra on 08-14-2024 GFR/1.73 sq M.predicted among non-blacks MDRD (S/P/Bld) [Vol rate/Area] 12 mL/min/{1.73_m2} Low >60 [facility] Comment on above: Non- GFR Calc Glucose measurementOrdered B y: Jimmie Ibarra on 08-14-2024 Glucose [Mass/Vol] 190 mg/dL High 74-106 [facility] Comment on above: Fasting Glucose resu lt greater than or equal to 126 mg/dL suggests DIABETES MELLITUS per A.D.A. criteria. Hematocrit Auto (Bld) [Volum e fraction]Ordered By: Jimmie Ibarra on 08-14-2024 Hematocrit (Bld) [Volume fraction] 21.8 % Low 40-54 [facility] Hemoglobin measurementOrdere d By: Jimmie Ibarra on 08-14-2024 Hemoglobin (Bld) [Mass/Vol] 7.3 g/dL Low 13.0-16.5 [facility] Immature granulocytes/100 WB C Auto (Bld)Ordered By: Jimmie Ibarra on 08-14-2024 Immature granulocytes/100 WBC (Bld) 2.300 % High 0.0-0.9 [facility] Comment on above: IG% - Immature Granu locytes (promyelocytes, myelocytes and metamyelocytes) > 1% indicates that a LEFT SHIFT is Present. Iron measurement (mass/mass) Ordered By: Jimmie Ibarra on 08-14-2024 Iron (Unsp spec) [Mass/Mass] 112 ug/dL 65-175 [facility] Iron+Iron Binding Capacityon 08-14-2024 Iron [Mass/Vol] 112 ug/dL Normal 65-175 [facility] Comment on above: Order Comment: 1 Performed By: #### L 503.6030, L500.4050, L100.0100, L504.2610, L503.6550 ####[facility] [address] [place], [address] IRON SATURATION 41.2 Normal 15.0-55.0 [facility] Comment on above: Order Comment: 1 Performed By: #### L 503.6030, L500.4050, L100.0100, L504.2610, L503.6550 ####[facility] [address] [place], [address] TIBC 272 ug/dL Normal 250-450 [facility] Comment on above: Order Comment: 1 Performed By: #### L 503.6030, L500.4050, L100.0100, L504.2610, L503.6550 ####[facility] [address] [place], [address] LDHon 08-14-2024 LDH 203 U/L Normal 87-241 [facility] Comment on above: Order Comment: 1 Performed By: #### L 503.6030, L500.4050, L100.0100, L504.2610, L503.6550 ####[facility] [address] [place], [address] Laboratory - Chemistry and C hemistry - challengeOrdered By: Jimmie Ibarra on 08-14-2024 AST [Catalytic activity/Vol] 11 U/L Low 15-37 [facility] Lactate dehydrogenase (LDH) measurementOrdered By: Jimmie Ibarra on 08-14-2024 LDH [Catalytic activity/Vol] 203 U/L 87-241 [facility] MCV (mean corpuscular volume ) determinationOrdered By: Jimmie Ibarra on 08-14-2024 MCV (RBC) [Entitic vol] 94.8 fL High 80-94 [facility] Mean corpuscular hemoglobin (MCH) determinationOrdered By: Jimmie Ibarra on 08-14-2024 MCH (RBC) [Entitic mass] 31.7 pg 27.0-32.0 [facility] Mean corpuscular hemoglobin concentration (MCHC) determinationOrdered By: Jimmie Ibarra on 08-14-2024 MCHC (RBC) [Mass/Vol] 33.5 g/dL 32-36 [facility] Mean platelet volume determi nationOrdered By: Jimmie Ibarra on 08-14-2024 Platelet mean volume (Bld) [Entitic vol] 11.2 fL 6.2-12.0 [facility] Monocyte percentageOrdered B y: Jimmie Ibarra on 08-14-2024 Monocytes/100 WBC (Bld) 6.6 % 0-10 [facility] Neutrophil percentageOrdered By: Jimmie Ibarra on 08-14-2024 Neutrophils/100 WBC (Bld) 62.9 % 47-70 [facility] Nucleated red blood cell per centageOrdered By: Jimmie Ibarra on 08-14-2024 Nucleated RBC/100 WBC (Bld) [Ratio] 0 % 0-5 [facility] Oncology Visit Reporton 07-28 Oncology Visit Report Normal [facility] Platelet countOrdered By: Anastasia Ibarra on 08-14-2024 Platelets (Bld) [#/Vol] 137 10*3/uL Low 150-450 [facility] Potassium measurementOrdered By: Jimmie Ibarra on 08-14-2024 Potassium [Moles/Vol] 4.1 mmol/L 3.5-5.1 [facility] RBC Auto (Bld) [#/Vol]Ordere d By: Jimmie Ibarra on 08-14-2024 RBC (Bld) [#/Vol] 2.30 10*6/uL Low 4.6-6.2 [facility] Serum anion gap measurementO rdered By: Jimmie Ibarra on 08-14-2024 Anion gap [Moles/Vol] 2 mmol/L Low 5-15 [facility] Serum globulin measurementOr dered By: Jimmie Ibarra on 08-14-2024 Globulin (S) [Mass/Vol] 3.5 g/dL 2.2-4.2 [facility] Serum or plasma alanine meng otransferase (ALT) measurementOrdered By: Jimmie Ibarra on 08-14-2024 ALT [Catalytic activity/Vol] 15 U/L Low 16-61 [facility] Serum or plasma albumin abhi urement (mass/volume)Ordered By: Jimmie Ibarra on 08-14-2024 Albumin [Mass/Vol] 3.0 g/dL Low 3.2-5.0 [facility] Serum or plasma alkaline jaspreet sphatase measurementOrdered By: Jimmie Ibarra on 08-14-2024 ALP [Catalytic activity/Vol] 49 U/L 45-117 [facility] Serum or plasma calcium abhi urement (mass/volume)Ordered By: Jimmie Ibarra on 08-14-2024 Calcium [Mass/Vol] 8.4 mg/dL Low 8.5-10.1 [facility] Serum or plasma creatinine m easurement (mass/volume)Ordered By: Jimmie Ibarra on 08-14-2024 Creatinine [Mass/Vol] 5.37 mg/dL High 0.70-1.30 [facility] Comment on above: The validity of the calculated GFR & GFRAA in patients over 70 years has not been determined. Clinical correlation is essential. Serum or plasma iron saturat ion measurement (mass fraction)Ordered By: Jimmie Ibarra on 08-14-2024 Iron saturation [Mass fraction] 41.2 % 15.0-55.0 [facility] Serum or plasma urea nitroge n measurement (mass/volume)Ordered By: Jimmie Ibarra on 08-14-2024 Urea nitrogen [Mass/Vol] 41 mg/dL High 7-18 [facility] Sodium levelOrdered By: Omid Ibarra on 08-14-2024 Sodium [Moles/Vol] 137 mmol/L 136-145 [facility] Total proteinOrdered By: Brandt Ibarar on 08-14-2024 Protein [Mass/Vol] 6.5 g/dL 6.4-8.2 [facility] White blood cell (WBC) count Ordered By: Jimmie Ibarra on 08-14-2024 WBC (Bld) [#/Vol] 4.7 10*3/uL 4.4-11.0 [facility] Surgery Visit Reporton 08-07 Surgery Visit Report Normal [facility] Hemoglobinon 08-01-2024 Hemoglobin (Bld) [Mass/Vol] 7.2 g/dL Low 13.0-16.5 [facility] Comment on above: Performed By: #### L 100.1300 ####[facility] [address] [place], [address] Erythropoietinon 07-29-2024 ERYTHROPOIETIN 8.1 mIU/mL Normal 2.6-18.5 [facility] Comment on above: Result Comment: [employer] UniCApakau DxI 800 Immunoassay SystemValues obtained with different assay methods or kits cannotbe used interchangeably. Results cannot be interpreted asabsolute evidence of the presence or absence of malignantdisease.Performed at: [facility] Director: Bradley Peña PhD, Phone: [phone] Performed By: #### L 501.7900, L3482.1354 ####[facility] [address] [place], [place], [id number] Carbamazepine (Tegretol)on 09-25-2023 CARBAMAZEPINE 11.4 ug/mL Normal 4.0-12.0 [facility] Comment on above: Performed By: #### L 501.7900, L3100.1350 ####[facility] [address] [place], [address] Basic Metabolic Profile (BMP )on 07-23-2024 BUN/CRE 7.2 RATIO Low 10-20 [facility] Comment on above: Performed By: #### L 500.2500, BTSPAT, L100.0500 ####[facility] [address] [place], [place], [id number] CA,Total 7.9 mg/dL Low 8.5-10.1 [facility] Comment on above: Performed By: #### L 500.2500, BTSPAT, L100.0500 ####[facility] [address] [place], [address] Chloride [Moles/Vol] 105 mmol/L Normal 98-107 [facility] Comment on above: Performed By: #### L 500.2500, BTSPAT, L100.0500 ####[facility] [address] [place], [address] CO2 [Moles/Vol] 31.0 mmol/L Normal 21.0-32.0 [facility] Comment on above: Performed By: #### L 500.2500, BTSPAT, L100.0500 ####[facility] [address] [place], [address] Creatinine [Mass/Vol] 4.17 mg/dL High 0.70-1.30 [facility] Comment on above: Result Comment: The validity of the calculated GFR GFRAA in patients over70 years has not been determined. Clinical correlation isessential. Performed By: #### L 500.2500, BTSPAT, L100.0500 ####[facility] [address] [place], [address] ECRCL 21.96 ml/min Normal [facility] Comment on above: Performed By: #### L 500.2500, BTSPAT, L100.0500 ####[facility] [address] [place], [address] EST GFR - AA 19 mL/min Low >60 [facility] Comment on above: Result Comment: Afri can Angolan GFR Calc Performed By: #### L 500.2500, BTSPAT, L100.0500 ####[facility] [address] [place], [address] GAP 4 Low 5-15 [facility] Comment on above: Performed By: #### L 500.2500, BTSPAT, L100.0500 ####[facility] [address] [place], [address] GFR/1.73 sq M.predicted among non-blacks MDRD (S/P/Bld) [Vol rate/Area] 16 mL/min/{1.73_m2} Low >60 [facility] Comment on above: Result Comment: Non- GFR Calc Performed By: #### L 500.2500, BTSPAT, L100.0500 ####[facility] [address] [place], [address] Glucose [Mass/Vol] 86 mg/dL Normal 74-106 [facility] Comment on above: Performed By: #### L 500.2500, BTSPAT, L100.0500 ####[facility] [address] [place], [address] Potassium [Moles/Vol] 4.4 mmol/L Normal 3.5-5.1 [facility] Comment on above: Performed By: #### L 500.2500, BTSPAT, L100.0500 ####[facility] [address] [place], [address] Sodium [Moles/Vol] 140 mmol/L Normal 136-145 [facility] Comment on above: Performed By: #### L 500.2500, BTSPAT, L100.0500 ####[facility] [address] [place], [address] Urea nitrogen [Mass/Vol] 30 mg/dL High 7-18 [facility] Comment on above: Performed By: #### L 500.2500, BTSPAT, L100.0500 ####[facility] [address] [place], [address] Bedside Glucoseon 07-23-2024 FINGERSTICK GLU 89 mg/dL Normal 74-106 [facility] Comment on above: Result Comment: AAMIR GEMENT OF PATIENT CARE PER NURSING PROTOCOL Performed By: #### L 501.080 ####[facility] [address] [place], [address] FINGERSTICK GLU 56 mg/dL Low 74-106 [facility] Comment on above: Result Comment: AAMIR GEMENT OF PATIENT CARE PER NURSING PROTOCOL Performed By: #### L 501.080 ####[facility] [address] [place], [address] FINGERSTICK GLU 81 mg/dL Normal 74-106 [facility] Comment on above: Result Comment: AAMIR GEMENT OF PATIENT CARE PER NURSING PROTOCOL Performed By: #### L 501.080 ####[facility] [address] [place], [address] CBC-Complete Blood Cnt No Di ffon 07-23-2024 Erythrocyte distribution width (RBC) [Ratio] 14.4 % Normal 11.6-14.6 [facility] Comment on above: Performed By: #### L 500.2500, BTSPAT, L100.0500 ####[facility] [address] [place], [address] Hematocrit (Bld) [Volume fraction] 22.6 % Low 40-54 [facility] Comment on above: Performed By: #### L 500.2500, BTSPAT, L100.0500 ####[facility] [address] [place], [address] Hemoglobin (Bld) [Mass/Vol] 7.2 g/dL Low 13.0-16.5 [facility] Comment on above: Performed By: #### L 500.2500, BTSPAT, L100.0500 ####[facility] [address] [place], [address] MCH (RBC) [Entitic mass] 29.6 pg Normal 27.0-32.0 [facility] Comment on above: Performed By: #### L 500.2500, BTSPAT, L100.0500 ####[facility] [address] [place], [address] MCHC (RBC) [Mass/Vol] 31.9 g/dL Low 32-36 [facility] Comment on above: Performed By: #### L 500.2500, BTSPAT, L100.0500 ####[facility] [address] [place], [address] MCV (RBC) [Entitic vol] 93.0 fL Normal 80-94 [facility] Comment on above: Performed By: #### L 500.2500, BTSPAT, L100.0500 ####[facility] [address] [place], [address] Platelet mean volume (Bld) [Entitic vol] 10.1 fL Normal 6.2-12.0 [facility] Comment on above: Performed By: #### L 500.2500, BTSPAT, L100.0500 ####[facility] [address] [place], [address] Platelets (Bld) [#/Vol] 116 10*3/uL Low 150-450 [facility] Comment on above: Performed By: #### L 500.2500, BTSPAT, L100.0500 ####[facility] [address] [place], [address] RBC (Bld) [#/Vol] 2.43 10*6/uL Low 4.6-6.2 [facility] Comment on above: Performed By: #### L 500.2500, BTSPAT, L100.0500 ####[facility] [address] [place], [address] RDW SD 48.3 fl High 35.1-43.9 [facility] Comment on above: Performed By: #### L 500.2500, BTSPAT, L100.0500 ####[facility] [address] [place], [address] WBC (Bld) [#/Vol] 3.6 10*3/uL Low 4.4-11.0 [facility] Comment on above: Performed By: #### L 500.2500, BTSPAT, L100.0500 ####[facility] [address] [place], [address] Discharge Instructionon 06-29 Discharge Instruction Normal [facility] MR/POSTOP.ANEon 07-23-2024 MR/POSTOP.ANE Normal [facility] MR/HGIZELXB6wz 07-23-2024 MR/POSTOPAN2 Normal [facility] Operative Reporton Operative Report Normal [facility] Type AND Screen - PAT ONLYon 07-23-2024 ABO and Rh group Nom (Bld) Blood group O Rh(D) positive Normal [facility] Comment on above: Order Comment: Surge ry Date: 07/23/24Reason for Laboratory Test [id number] FISTULA CREATION Performed By: #### L 500.2500, BTSPAT, L100.0500 ####[facility] [address] [place], [address] MR/BMS.BVSon 07-19-2024 MR/BMS.BVS Normal [facility] Bedside Glucoseon 07-10-2024 FINGERSTICK GLU 112 mg/dL High 74-106 [facility] Comment on above: Result Comment: AAMIR GEMENT OF PATIENT CARE PER NURSING PROTOCOL Performed By: #### L 501.080 ####[facility] [address] [place], [address] FINGERSTICK GLU 149 mg/dL High 74-106 [facility] Comment on above: Result Comment: AAMIR GEMENT OF PATIENT CARE PER NURSING PROTOCOL Performed By: #### L 501.080 ####[facility] [address] [place], [address] FINGERSTICK GLU 164 mg/dL High 74-106 [facility] Comment on above: Result Comment: AAMIR QUIROGA OF PATIENT CARE PER NURSING PROTOCOL Performed By: #### L 501.080 ####[facility] [address] [place], [address] CBC-Complete Blood Cnt No Di ffon 07-10-2024 Erythrocyte distribution width (RBC) [Ratio] 13.9 % Normal 11.6-14.6 [facility] Comment on above: Performed By: #### L 100.0500 ####[facility] [address] [place], [address] Hematocrit (Bld) [Volume fraction] 24.9 % Low 40-54 [facility] Comment on above: Performed By: #### L 100.0500 ####[facility] [address] [place], [address] Hemoglobin (Bld) [Mass/Vol] 8.6 g/dL Low 13.0-16.5 [facility] Comment on above: Performed By: #### L 100.0500 ####[facility] [address] [place], [address] MCH (RBC) [Entitic mass] 30.2 pg Normal 27.0-32.0 [facility] Comment on above: Performed By: #### L 100.0500 ####[facility] [address] [place], [address] MCHC (RBC) [Mass/Vol] 34.5 g/dL Normal 32-36 [facility] Comment on above: Performed By: #### L 100.0500 ####[facility] [address] [place], [address] MCV (RBC) [Entitic vol] 87.4 fL Normal 80-94 [facility] Comment on above: Performed By: #### L 100.0500 ####[facility] [address] [place], [address] Platelet mean volume (Bld) [Entitic vol] 10.3 fL Normal 6.2-12.0 [facility] Comment on above: Performed By: #### L 100.0500 ####[facility] [address] [place], [address] Platelets (Bld) [#/Vol] 168 10*3/uL Normal 150-450 [facility] Comment on above: Performed By: #### L 100.0500 ####[facility] [address] [place], [address] RBC (Bld) [#/Vol] 2.85 10*6/uL Low 4.6-6.2 [facility] Comment on above: Performed By: #### L 100.0500 ####[facility] [address] [place], [address] RDW SD 44.2 fl High 35.1-43.9 [facility] Comment on above: Performed By: #### L 100.0500 ####[facility] [address] [place], [address] WBC (Bld) [#/Vol] 5.7 10*3/uL Normal 4.4-11.0 [facility] Comment on above: Performed By: #### L 100.0500 ####[facility] [address] [place], [address] Discharge Instructionon 06-28 Discharge Instruction Normal [facility] Renal Profileon 07-10-2024 Albumin [Mass/Vol] 2.5 g/dL Low 3.2-5.0 [facility] Comment on above: Performed By: #### L 500.3600 ####[facility] [address] [place], [address] BUN/CRE 9.7 RATIO Low 10-20 [facility] Comment on above: Performed By: #### L 500.3600 ####[facility] [address] [place], [address] CA,Total 7.9 mg/dL Low 8.5-10.1 [facility] Comment on above: Performed By: #### L 500.3600 ####[facility] [address] [place], [address] Chloride [Moles/Vol] 98 mmol/L Normal 98-107 [facility] Comment on above: Performed By: #### L 500.3600 ####[facility] [address] [place], [address] CO2 [Moles/Vol] 22.0 mmol/L Normal 21.0-32.0 [facility] Comment on above: Performed By: #### L 500.3600 ####[facility] [address] [place], [address] Creatinine [Mass/Vol] 5.47 mg/dL High 0.70-1.30 [facility] Comment on above: Result Comment: The validity of the calculated GFR GFRAA in patients over70 years has not been determined. Clinical correlation isessential. Performed By: #### L 500.3600 ####[facility] [address] [place], [address] ECRCL 17.13 ml/min Normal [facility] Comment on above: Performed By: #### L 500.3600 ####[facility] [address] [place], [address] EST GFR - AA 14 mL/min Low >60 [facility] Comment on above: Result Comment: Afri can Angolan GFR Calc Performed By: #### L 500.3600 ####[facility] [address] [place], [address] GFR/1.73 sq M.predicted among non-blacks MDRD (S/P/Bld) [Vol rate/Area] 12 mL/min/{1.73_m2} Low >60 [facility] Comment on above: Result Comment: Non- GFR Calc Performed By: #### L 500.3600 ####[facility] [address] [place], [address] Glucose [Mass/Vol] 152 mg/dL High 74-106 [facility] Comment on above: Result Comment: Fast ing Glucose result greater than or equal to 126 mg/dLsuggests DIABETES MELLITUS per A.D.A. criteria. Performed By: #### L 500.3600 ####[facility] [address] [place], [address] Phosphate [Mass/Vol] 4.8 mg/dL Normal 2.5-4.9 [facility] Comment on above: Performed By: #### L 500.3600 ####[facility] [address] [place], [address] Potassium [Moles/Vol] 4.3 mmol/L Normal 3.5-5.1 [facility] Comment on above: Performed By: #### L 500.3600 ####[facility] [address] [place], [address] Sodium [Moles/Vol] 128 mmol/L Low 136-145 [facility] Comment on above: Performed By: #### L 500.3600 ####[facility] [address] [place], [address] Urea nitrogen [Mass/Vol] 53 mg/dL High 7-18 [facility] Comment on above: Performed By: #### L 500.3600 ####[facility] [address] [place], [address] Bedside Glucoseon 07-09-2024 FINGERSTICK GLU 161 mg/dL High 74-106 [facility] Comment on above: Result Comment: AAMIR GEMENT OF PATIENT CARE PER NURSING PROTOCOL Performed By: #### L 501.080 ####[facility] [address] [place], [address] FINGERSTICK GLU 188 mg/dL High 74-106 [facility] Comment on above: Result Comment: AAMIR GEMENT OF PATIENT CARE PER NURSING PROTOCOL Performed By: #### L 501.080 ####[facility] [address] [place], [address] FINGERSTICK GLU 191 mg/dL High 74-106 [facility] Comment on above: Result Comment: AAMIR GEMENT OF PATIENT CARE PER NURSING PROTOCOL Performed By: #### L 501.080 ####[facility] [address] [place], [address] FINGERSTICK GLU 138 mg/dL High 74-106 [facility] Comment on above: Result Comment: AAMIR GEMENT OF PATIENT CARE PER NURSING PROTOCOL Performed By: #### L 501.080 ####[facility] [address] [place], [address] CBC W/Diff, Automatedon 06-28 Absolute Lymph 1.17 X10 3/uL Normal 0.83-4.51 [facility] Comment on above: Performed By: #### L 500.4050, L100.0100 ####[facility] [address] [place], [address] Absolute Neut 3.0 X10 3/uL Normal 2.0-7.7 [facility] Comment on above: Performed By: #### L 500.4050, L100.0100 ####[facility] [address] [place], [address] Basophils/100 WBC (Bld) 0.4 % Normal 0-1 [facility] Comment on above: Performed By: #### L 500.4050, L100.0100 ####[facility] [address] [place], [address] Eosinophils/100 WBC (Bld) 3.0 % Normal 0-5 [facility] Comment on above: Performed By: #### L 500.4050, L100.0100 ####[facility] [address] [place], [address] Erythrocyte distribution width (RBC) [Ratio] 13.8 % Normal 11.6-14.6 [facility] Comment on above: Performed By: #### L 500.4050, L100.0100 ####[facility] [address] [place], [address] Hematocrit (Bld) [Volume fraction] 22.0 % Low 40-54 [facility] Comment on above: Performed By: #### L 500.4050, L100.0100 ####[facility] [address] [place], [address] Hemoglobin (Bld) [Mass/Vol] 7.4 g/dL Low 13.0-16.5 [facility] Comment on above: Performed By: #### L 500.4050, L100.0100 ####[facility] [address] [place], [address] IG% 0.700 Normal 0.0-0.9 [facility] Comment on above: Result Comment: IG% - Immature Granulocytes (promyelocytes, myelocytes andmetamyelocytes) > 1% indicates that a LEFT SHIFT is Present. Performed By: #### L 500.4050, L100.0100 ####[facility] [address] [place], [address] Lymphocytes/100 WBC (Bld) 25.4 % Normal 19-41 [facility] Comment on above: Performed By: #### L 500.4050, L100.0100 ####[facility] [address] [place], [address] MCH (RBC) [Entitic mass] 29.1 pg Normal 27.0-32.0 [facility] Comment on above: Performed By: #### L 500.4050, L100.0100 ####[facility] [address] [place], [address] MCHC (RBC) [Mass/Vol] 33.6 g/dL Normal 32-36 [facility] Comment on above: Performed By: #### L 500.4050, L100.0100 ####[facility] [address] [place], [address] MCV (RBC) [Entitic vol] 86.6 fL Normal 80-94 [facility] Comment on above: Performed By: #### L 500.4050, L100.0100 ####[facility] [address] [place], [address] Monocytes/100 WBC (Bld) 6.3 % Normal 0-10 [facility] Comment on above: Performed By: #### L 500.4050, L100.0100 ####[facility] [address] [place], [address] Neutrophils/100 WBC (Bld) 64.2 % Normal 47-70 [facility] Comment on above: Performed By: #### L 500.4050, L100.0100 ####[facility] [address] [place], [address] Nucleated RBC (Bld) [#/Vol] 0 10*3/uL Normal 0-5 [facility] Comment on above: Performed By: #### L 500.4050, L100.0100 ####[facility] [address] [place], [address] Platelet mean volume (Bld) [Entitic vol] 10.6 fL Normal 6.2-12.0 [facility] Comment on above: Performed By: #### L 500.4050, L100.0100 ####[facility] [address] [place], [address] Platelets (Bld) [#/Vol] 147 10*3/uL Low 150-450 [facility] Comment on above: Performed By: #### L 500.4050, L100.0100 ####[facility] [address] [place], [address] RBC (Bld) [#/Vol] 2.54 10*6/uL Low 4.6-6.2 [facility] Comment on above: Performed By: #### L 500.4050, L100.0100 ####[facility] [address] [place], [address] RDW SD 43.2 fl Normal 35.1-43.9 [facility] Comment on above: Performed By: #### L 500.4050, L100.0100 ####[facility] [address] [place], [address] WBC (Bld) [#/Vol] 4.6 10*3/uL Normal 4.4-11.0 [facility] Comment on above: Performed By: #### L 500.4050, L100.0100 ####[facility] [address] [place], [address] Comprehensive Metabolic Prof [facility] 07-09-2024 Albumin [Mass/Vol] 2.2 g/dL Low 3.2-5.0 [facility] Comment on above: Performed By: #### L 500.4050, L100.0100 ####[facility] [address] [place], [address] Albumin/Globulin [Mass ratio] 0.7 {ratio} Low 0.9-2.4 [facility] Comment on above: Performed By: #### L 500.4050, L100.0100 ####[facility] [address] [place], [address] ALK P 41 U/L Low 45-117 [facility] Comment on above: Performed By: #### L 500.4050, L100.0100 ####[facility] [address] [place], [address] ALT [Catalytic activity/Vol] U/L Low 16-61 [facility] Comment on above: Performed By: #### L 500.4050, L100.0100 ####[facility] [address] [place], [address] AST [Catalytic activity/Vol] 20 U/L Normal 15-37 [facility] Comment on above: Performed By: #### L 500.4050, L100.0100 ####[facility] [address] [place], [address] Bilirubin [Mass/Vol] 0.20 mg/dL Normal 0.20-1.00 [facility] Comment on above: Result Comment: For patients on eltrombopag therapy, use of Dimension [place] TBIL is not recommended. Performed By: #### L 500.4050, L100.0100 ####[facility] [address] [place], [address] BUN/CRE 9.0 RATIO Low 10-20 [facility] Comment on above: Performed By: #### L 500.4050, L100.0100 ####[facility] [address] [place], [address] CA,Total 7.9 mg/dL Low 8.5-10.1 [facility] Comment on above: Performed By: #### L 500.4050, L100.0100 ####[facility] [address] [place], [address] Chloride [Moles/Vol] 102 mmol/L Normal 98-107 [facility] Comment on above: Performed By: #### L 500.4050, L100.0100 ####[facility] [address] [place], [address] CO2 [Moles/Vol] 23.0 mmol/L Normal 21.0-32.0 [facility] Comment on above: Performed By: #### L 500.4050, L100.0100 ####[facility] [address] [place], [address] Creatinine [Mass/Vol] 5.66 mg/dL High 0.70-1.30 [facility] Comment on above: Result Comment: The validity of the calculated GFR GFRAA in patients over70 years has not been determined. Clinical correlation isessential. Performed By: #### L 500.4050, L100.0100 ####[facility] [address] [place], [address] ECRCL 16.43 ml/min Normal [facility] Comment on above: Performed By: #### L 500.4050, L100.0100 ####[facility] [address] [place], [address] EST GFR - AA 14 mL/min Low >60 [facility] Comment on above: Result Comment: Afri can Angolan GFR Calc Performed By: #### L 500.4050, L100.0100 ####[facility] [address] [place], [address] GAP 7 Normal 5-15 [facility] Comment on above: Performed By: #### L 500.4050, L100.0100 ####[facility] [address] [place], [address] GFR/1.73 sq M.predicted among non-blacks MDRD (S/P/Bld) [Vol rate/Area] 11 mL/min/{1.73_m2} Low >60 [facility] Comment on above: Result Comment: Non- GFR Calc Performed By: #### L 500.4050, L100.0100 ####[facility] [address] [place], [address] Globulin (S) [Mass/Vol] 3.1 g/dL Normal 2.2-4.2 [facility] Comment on above: Performed By: #### L 500.4050, L100.0100 ####[facility] [address] [place], [address] Glucose [Mass/Vol] 139 mg/dL High 74-106 [facility] Comment on above: Result Comment: Fast ing Glucose result greater than or equal to 126 mg/dLsuggests DIABETES MELLITUS per A.D.A. criteria. Performed By: #### L 500.4050, L100.0100 ####[facility] [address] [place], [address] Potassium [Moles/Vol] 4.3 mmol/L Normal 3.5-5.1 [facility] Comment on above: Performed By: #### L 500.4050, L100.0100 ####[facility] [address] [place], [address] Sodium [Moles/Vol] 132 mmol/L Low 136-145 [facility] Comment on above: Performed By: #### L 500.4050, L100.0100 ####[facility] [address] [place], [address] T PROT 5.3 g/dL Low 6.4-8.2 [facility] Comment on above: Performed By: #### L 500.4050, L100.0100 ####[facility] [address] [place], [address] Urea nitrogen [Mass/Vol] 51 mg/dL High 7-18 [facility] Comment on above: Performed By: #### L 500.4050, L100.0100 ####[facility] [address] [place], [address] Bedside Glucoseon 07-08-2024 FINGERSTICK GLU 137 mg/dL High 74-106 [facility] Comment on above: Result Comment: AAMIR GEMENT OF PATIENT CARE PER NURSING PROTOCOL Performed By: #### L 501.080 ####[facility] [address] [place], [address] FINGERSTICK GLU 144 mg/dL High 74-106 [facility] Comment on above: Result Comment: AAMIR GEMENT OF PATIENT CARE PER NURSING PROTOCOL Performed By: #### L 501.080 ####[facility] [address] [place], [address] FINGERSTICK GLU 161 mg/dL High -106 [facility] Comment on above: Result Comment: AAMIR GEMENT OF PATIENT CARE PER NURSING PROTOCOL Performed By: #### L 501.080 ####[facility] [address] [place], [address] FINGERSTICK GLU 136 mg/dL High -106 [facility] Comment on above: Result Comment: AAMIR GEMENT OF PATIENT CARE PER NURSING PROTOCOL Performed By: #### L 501.080 ####[facility] [address] [place], [address] CBC W/Diff, Automatedon 06-28 Absolute Lymph 1.15 X10 3/uL Normal 0.83-4.51 [facility] Comment on above: Performed By: #### L 100.0100, L500.4050 ####[facility] [address] [place], [address] Absolute Neut 2.7 X10 3/uL Normal 2.0-7.7 [facility] Comment on above: Performed By: #### L 100.0100, L500.4050 ####[facility] [address] [place], [address] Basophils/100 WBC (Bld) 0.7 % Normal 0-1 [facility] Comment on above: Performed By: #### L 100.0100, L500.4050 ####[facility] [address] [place], [address] Eosinophils/100 WBC (Bld) 1.9 % Normal 0-5 [facility] Comment on above: Performed By: #### L 100.0100, L500.4050 ####[facility] [address] [place], [address] Erythrocyte distribution width (RBC) [Ratio] 13.9 % Normal 11.6-14.6 [facility] Comment on above: Performed By: #### L 100.0100, L500.4050 ####[facility] [address] [place], [address] Hematocrit (Bld) [Volume fraction] 21.9 % Low 40-54 [facility] Comment on above: Performed By: #### L 100.0100, L500.4050 ####[facility] [address] [place], [address] Hemoglobin (Bld) [Mass/Vol] 7.3 g/dL Low 13.0-16.5 [facility] Comment on above: Performed By: #### L 100.0100, L500.4050 ####[facility] [address] [place], [address] IG% 0.700 Normal 0.0-0.9 [facility] Comment on above: Result Comment: IG% - Immature Granulocytes (promyelocytes, myelocytes andmetamyelocytes) > 1% indicates that a LEFT SHIFT is Present. Performed By: #### L 100.0100, L500.4050 ####[facility] [address] [place], [address] Lymphocytes/100 WBC (Bld) 26.7 % Normal 19-41 [facility] Comment on above: Performed By: #### L 100.0100, L500.4050 ####[facility] [address] [place], [address] MCH (RBC) [Entitic mass] 29.4 pg Normal 27.0-32.0 [facility] Comment on above: Performed By: #### L 100.0100, L500.4050 ####[facility] [address] [place], [address] MCHC (RBC) [Mass/Vol] 33.3 g/dL Normal 32-36 [facility] Comment on above: Performed By: #### L 100.0100, L500.4050 ####[facility] [address] [place], [address] MCV (RBC) [Entitic vol] 88.3 fL Normal 80-94 [facility] Comment on above: Performed By: #### L 100.0100, L500.4050 ####[facility] [address] [place], [address] Monocytes/100 WBC (Bld) 6.7 % Normal 0-10 [facility] Comment on above: Performed By: #### L 100.0100, L500.4050 ####[facility] [address] [place], [address] Neutrophils/100 WBC (Bld) 63.3 % Normal 47-70 [facility] Comment on above: Performed By: #### L 100.0100, L500.4050 ####[facility] [address] [place], [address] Nucleated RBC (Bld) [#/Vol] 0 10*3/uL Normal 0-5 [facility] Comment on above: Performed By: #### L 100.0100, L500.4050 ####[facility] [address] [place], [address] Platelet mean volume (Bld) [Entitic vol] 10.2 fL Normal 6.2-12.0 [facility] Comment on above: Performed By: #### L 100.0100, L500.4050 ####[facility] [address] [place], [address] Platelets (Bld) [#/Vol] 112 10*3/uL Low 150-450 [facility] Comment on above: Performed By: #### L 100.0100, L500.4050 ####[facility] [address] [place], [address] RBC (Bld) [#/Vol] 2.48 10*6/uL Low 4.6-6.2 [facility] Comment on above: Performed By: #### L 100.0100, L500.4050 ####[facility] [address] [place], [address] RDW SD 44.8 fl High 35.1-43.9 [facility] Comment on above: Performed By: #### L 100.0100, L500.4050 ####[facility] [address] [place], [address] WBC (Bld) [#/Vol] 4.3 10*3/uL Low 4.4-11.0 [facility] Comment on above: Performed By: #### L 100.0100, L500.4050 ####[facility] [address] [place], [address] CORTISOL SERUMon 07-08-2024 CORTISOL 28.60 ug/dL High 3.44-22.45 [facility] Comment on above: Order Comment: 60M Result Comment: Adul t (AM) 5.27 - 22.45 ug/dL Adult (PM) 3.44 - 16.76 ug/dL Performed By: #### L 509.6000 ####[facility] [address] [place], [address] CORTISOL 17.80 ug/dL Normal 3.44-22.45 [facility] Comment on above: Order Comment: B Result Comment: Adul t (AM) 5.27 - 22.45 ug/dL Adult (PM) 3.44 - 16.76 ug/dL Performed By: #### L 509.6000 ####[facility] [address] [place], [address] Comprehensive Metabolic Prof ilon 07-08-2024 Albumin [Mass/Vol] 2.2 g/dL Low 3.2-5.0 [facility] Comment on above: Performed By: #### L 100.0100, L500.4050 ####[facility] [address] [place], [address] Albumin/Globulin [Mass ratio] 0.7 {ratio} Low 0.9-2.4 [facility] Comment on above: Performed By: #### L 100.0100, L500.4050 ####[facility] [address] [place], [address] ALK P 45 U/L Normal 45-117 [facility] Comment on above: Performed By: #### L 100.0100, L500.4050 ####[facility] [address] [place], [address] ALT [Catalytic activity/Vol] U/L Low 16-61 [facility] Comment on above: Performed By: #### L 100.0100, L500.4050 ####[facility] [address] [place], [address] AST [Catalytic activity/Vol] 7 U/L Low 15-37 [facility] Comment on above: Performed By: #### L 100.0100, L500.4050 ####[facility] [address] [place], [address] Bilirubin [Mass/Vol] 0.30 mg/dL Normal 0.20-1.00 [facility] Comment on above: Result Comment: For patients on eltrombopag therapy, use of Dimension [place] TBIL is not recommended. Performed By: #### L 100.0100, L500.4050 ####[facility] [address] [place], [address] BUN/CRE 9.5 RATIO Low 10-20 [facility] Comment on above: Performed By: #### L 100.0100, L500.4050 ####[facility] [address] [place], [address] CA,Total 7.7 mg/dL Low 8.5-10.1 [facility] Comment on above: Performed By: #### L 100.0100, L500.4050 ####[facility] [address] [place], [address] Chloride [Moles/Vol] 103 mmol/L Normal 98-107 [facility] Comment on above: Performed By: #### L 100.0100, L500.4050 ####[facility] [address] [place], [address] CO2 [Moles/Vol] 20.0 mmol/L Low 21.0-32.0 [facility] Comment on above: Performed By: #### L 100.0100, L500.4050 ####[facility] [address] [place], [address] Creatinine [Mass/Vol] 7.30 mg/dL High 0.70-1.30 [facility] Comment on above: Result Comment: The validity of the calculated GFR GFRAA in patients over70 years has not been determined. Clinical correlation isessential. Performed By: #### L 100.0100, L500.4050 ####[facility] [address] [place], [address] ECRCL 12.69 ml/min Normal [facility] Comment on above: Performed By: #### L 100.0100, L500.4050 ####[facility] [address] [place], [address] EST GFR - AA 10 mL/min Low >60 [facility] Comment on above: Result Comment: Afri can Angolan GFR Calc Performed By: #### L 100.0100, L500.4050 ####[facility] [address] [place], [address] GAP 9 Normal 5-15 [facility] Comment on above: Performed By: #### L 100.0100, L500.4050 ####[facility] [address] [place], [address] GFR/1.73 sq M.predicted among non-blacks MDRD (S/P/Bld) [Vol rate/Area] 8 mL/min/{1.73_m2} Low >60 [facility] Comment on above: Result Comment: Non- GFR Calc Performed By: #### L 100.0100, L500.4050 ####[facility] [address] [place], [address] Globulin (S) [Mass/Vol] 3.2 g/dL Normal 2.2-4.2 [facility] Comment on above: Performed By: #### L 100.0100, L500.4050 ####[facility] [address] [place], [address] Glucose [Mass/Vol] 172 mg/dL High 74-106 [facility] Comment on above: Result Comment: Fast ing Glucose result greater than or equal to 126 mg/dLsuggests DIABETES MELLITUS per A.D.A. criteria. Performed By: #### L 100.0100, L500.4050 ####[facility] [address] [place], [address] Potassium [Moles/Vol] 4.3 mmol/L Normal 3.5-5.1 [facility] Comment on above: Performed By: #### L 100.0100, L500.4050 ####[facility] [address] [place], [address] Sodium [Moles/Vol] 132 mmol/L Low 136-145 [facility] Comment on above: Performed By: #### L 100.0100, L500.4050 ####[facility] [address] [place], [address] T PROT 5.4 g/dL Low 6.4-8.2 [facility] Comment on above: Performed By: #### L 100.0100, L500.4050 ####[facility] [address] [place], [address] Urea nitrogen [Mass/Vol] 69 mg/dL High 7-18 [facility] Comment on above: Performed By: #### L 100.0100, L500.4050 ####[facility] [address] [place], [address] Phosphoruson 07-08-2024 Phosphate [Mass/Vol] 6.1 mg/dL High 2.5-4.9 [facility] Comment on above: Performed By: #### L 501.2300 ####[facility] [address] [place], [address] Bedside Glucoseon 07-07-2024 FINGERSTICK GLU 189 mg/dL High 74-106 [facility] Comment on above: Result Comment: AAMIR GEMENT OF PATIENT CARE PER NURSING PROTOCOL Performed By: #### L 501.080 ####[facility] [address] [place], [address] FINGERSTICK GLU 154 mg/dL High 74-106 [facility] Comment on above: Result Comment: AAMIR GEMENT OF PATIENT CARE PER NURSING PROTOCOL Performed By: #### L 501.080 ####[facility] [address] [place], [address] FINGERSTICK GLU 87 mg/dL Normal 74-106 [facility] Comment on above: Result Comment: AAMIR QUIROGA OF PATIENT CARE PER NURSING PROTOCOL Performed By: #### L 501.080 ####[facility] [address] [place], [address] CBC W/Diff, Automatedon 11-1 0-2024 Absolute Lymph 1.11 X10 3/uL Normal 0.83-4.51 [facility] Comment on above: Performed By: #### L 100.0100, L500.4100, L500.4050 ####[facility] [address] [place], [address] Absolute Neut 3.0 X10 3/uL Normal 2.0-7.7 [facility] Comment on above: Performed By: #### L 100.0100, L500.4100, L500.4050 ####[facility] [address] [place], [address] Basophils/100 WBC (Bld) 0.4 % Normal 0-1 [facility] Comment on above: Performed By: #### L 100.0100, L500.4100, L500.4050 ####[facility] [address] [place], [address] Eosinophils/100 WBC (Bld) 2.0 % Normal 0-5 [facility] Comment on above: Performed By: #### L 100.0100, L500.4100, L500.4050 ####[facility] [address] [place], [address] Erythrocyte distribution width (RBC) [Ratio] 14.0 % Normal 11.6-14.6 [facility] Comment on above: Performed By: #### L 100.0100, L500.4100, L500.4050 ####[facility] [address] [place], [address] Hematocrit (Bld) [Volume fraction] 22.6 % Low 40-54 [facility] Comment on above: Performed By: #### L 100.0100, L500.4100, L500.4050 ####[facility] [address] [place], [address] Hemoglobin (Bld) [Mass/Vol] 7.5 g/dL Low 13.0-16.5 [facility] Comment on above: Performed By: #### L 100.0100, L500.4100, L500.4050 ####[facility] [address] [place], [address] IG% 0.400 Normal 0.0-0.9 [facility] Comment on above: Result Comment: IG% - Immature Granulocytes (promyelocytes, myelocytes andmetamyelocytes) > 1% indicates that a LEFT SHIFT is Present. Performed By: #### L 100.0100, L500.4100, L500.4050 ####[facility] [address] [place], [address] Lymphocytes/100 WBC (Bld) 24.3 % Normal 19-41 [facility] Comment on above: Performed By: #### L 100.0100, L500.4100, L500.4050 ####[facility] [address] [place], [address] MCH (RBC) [Entitic mass] 29.3 pg Normal 27.0-32.0 [facility] Comment on above: Performed By: #### L 100.0100, L500.4100, L500.4050 ####[facility] [address] [place], [address] MCHC (RBC) [Mass/Vol] 33.2 g/dL Normal 32-36 [facility] Comment on above: Performed By: #### L 100.0100, L500.4100, L500.4050 ####[facility] [address] [place], [address] MCV (RBC) [Entitic vol] 88.3 fL Normal 80-94 [facility] Comment on above: Performed By: #### L 100.0100, L500.4100, L500.4050 ####[facility] [address] [place], [address] Monocytes/100 WBC (Bld) 6.8 % Normal 0-10 [facility] Comment on above: Performed By: #### L 100.0100, L500.4100, L500.4050 ####[facility] [address] [place], [address] Neutrophils/100 WBC (Bld) 66.1 % Normal 47-70 [facility] Comment on above: Performed By: #### L 100.0100, L500.4100, L500.4050 ####[facility] [address] [place], [address] Nucleated RBC (Bld) [#/Vol] 0 10*3/uL Normal 0-5 [facility] Comment on above: Performed By: #### L 100.0100, L500.4100, L500.4050 ####[facility] [address] [place], [address] Platelet mean volume (Bld) [Entitic vol] 10.1 fL Normal 6.2-12.0 [facility] Comment on above: Performed By: #### L 100.0100, L500.4100, L500.4050 ####[facility] [address] [place], [address] Platelets (Bld) [#/Vol] 120 10*3/uL Low 150-450 [facility] Comment on above: Performed By: #### L 100.0100, L500.4100, L500.4050 ####[facility] [address] [place], [address] RBC (Bld) [#/Vol] 2.56 10*6/uL Low 4.6-6.2 [facility] Comment on above: Performed By: #### L 100.0100, L500.4100, L500.4050 ####[facility] [address] [place], [address] RDW SD 45.5 fl High 35.1-43.9 [facility] Comment on above: Performed By: #### L 100.0100, L500.4100, L500.4050 ####[facility] [address] [place], [address] WBC (Bld) [#/Vol] 4.6 10*3/uL Normal 4.4-11.0 [facility] Comment on above: Performed By: #### L 100.0100, L500.4100, L500.4050 ####[facility] [address] [place], [address] Comprehensive Metabolic Prof [facility] 07-07-2024 Albumin [Mass/Vol] 2.2 g/dL Low 3.2-5.0 [facility] Comment on above: Order Comment: Comme nts: add to AM labs from today. Performed By: #### L 100.0100, L500.4100, L500.4050 ####[facility] [address] [place], [address] Albumin/Globulin [Mass ratio] 0.7 {ratio} Low 0.9-2.4 [facility] Comment on above: Order Comment: Comme nts: add to AM labs from today. Performed By: #### L 100.0100, L500.4100, L500.4050 ####[facility] [address] [place], [address] ALK P 45 U/L Normal 45-117 [facility] Comment on above: Order Comment: Comme nts: add to AM labs from today. Performed By: #### L 100.0100, L500.4100, L500.4050 ####[facility] [address] [place], [address] ALT [Catalytic activity/Vol] U/L Low 16-61 [facility] Comment on above: Order Comment: Comme nts: add to AM labs from today. Performed By: #### L 100.0100, L500.4100, L500.4050 ####[facility] [address] [place], [address] AST [Catalytic activity/Vol] 7 U/L Low 15-37 [facility] Comment on above: Order Comment: Comme nts: add to AM labs from today. Performed By: #### L 100.0100, L500.4100, L500.4050 ####[facility] [address] [place], [address] Bilirubin [Mass/Vol] 0.30 mg/dL Normal 0.20-1.00 [facility] Comment on above: Order Comment: Comme nts: add to AM labs from today. Result Comment: For patients on eltrombopag therapy, use of Dimension [place] TBIL is not recommended. Performed By: #### L 100.0100, L500.4100, L500.4050 ####[facility] [address] [place], [address] BUN/CRE 9.0 RATIO Low 10-20 [facility] Comment on above: Order Comment: Comme nts: add to AM labs from today. Performed By: #### L 100.0100, L500.4100, L500.4050 ####[facility] [address] [place], [address] CA,Total 7.8 mg/dL Low 8.5-10.1 [facility] Comment on above: Order Comment: Comme nts: add to AM labs from today. Performed By: #### L 100.0100, L500.4100, L500.4050 ####[facility] [address] [place], [address] Chloride [Moles/Vol] 106 mmol/L Normal 98-107 [facility] Comment on above: Order Comment: Comme nts: add to AM labs from today. Performed By: #### L 100.0100, L500.4100, L500.4050 ####[facility] [address] [place], [address] CO2 [Moles/Vol] 19.0 mmol/L Low 21.0-32.0 [facility] Comment on above: Order Comment: Comme nts: add to AM labs from today. Performed By: #### L 100.0100, L500.4100, L500.4050 ####[facility] [address] [place], [address] Creatinine [Mass/Vol] 6.69 mg/dL High 0.70-1.30 [facility] Comment on above: Order Comment: Comme nts: add to AM labs from today. Result Comment: The validity of the calculated GFR GFRAA in patients over70 years has not been determined. Clinical correlation isessential. Performed By: #### L 100.0100, L500.4100, L500.4050 ####[facility] [address] [place], [address] ECRCL 13.84 ml/min Normal [facility] Comment on above: Order Comment: Comme nts: add to AM labs from today. Performed By: #### L 100.0100, L500.4100, L500.4050 ####[facility] [address] [place], [address] EST GFR - AA 11 mL/min Low >60 [facility] Comment on above: Order Comment: Comme nts: add to AM labs from today. Result Comment: Afri can Angolan GFR Calc Performed By: #### L 100.0100, L500.4100, L500.4050 ####[facility] [address] [place], [address] GAP 10 Normal 5-15 [facility] Comment on above: Order Comment: Comme nts: add to AM labs from today. Performed By: #### L 100.0100, L500.4100, L500.4050 ####[facility] [address] [place], [address] GFR/1.73 sq M.predicted among non-blacks MDRD (S/P/Bld) [Vol rate/Area] 9 mL/min/{1.73_m2} Low >60 [facility] Comment on above: Order Comment: Comme nts: add to AM labs from today. Result Comment: Non- GFR Calc Performed By: #### L 100.0100, L500.4100, L500.4050 ####[facility] [address] [place], [address] Globulin (S) [Mass/Vol] 3.2 g/dL Normal 2.2-4.2 [facility] Comment on above: Order Comment: Comme nts: add to AM labs from today. Performed By: #### L 100.0100, L500.4100, L500.4050 ####[facility] [address] [place], [address] Glucose [Mass/Vol] 92 mg/dL Normal 74-106 [facility] Comment on above: Order Comment: Comme nts: add to AM labs from today. Performed By: #### L 100.0100, L500.4100, L500.4050 ####[facility] [address] [place], [address] Potassium [Moles/Vol] 4.3 mmol/L Normal 3.5-5.1 [facility] Comment on above: Order Comment: Comme nts: add to AM labs from today. Performed By: #### L 100.0100, L500.4100, L500.4050 ####[facility] [address] [place], [address] Sodium [Moles/Vol] 135 mmol/L Low 136-145 [facility] Comment on above: Order Comment: Comme nts: add to AM labs from today. Performed By: #### L 100.0100, L500.4100, L500.4050 ####[facility] [address] [place], [address] T PROT 5.4 g/dL Low 6.4-8.2 [facility] Comment on above: Order Comment: Comme nts: add to AM labs from today. Performed By: #### L 100.0100, L500.4100, L500.4050 ####[facility] [address] [place], [address] Urea nitrogen [Mass/Vol] 60 mg/dL High 7-18 [facility] Comment on above: Order Comment: Comme nts: add to AM labs from today. Performed By: #### L 100.0100, L500.4100, L500.4050 ####[facility] [address] [place], [address] Lipid Profileon 07-07-2024 Cholesterol [Mass/Vol] 152 mg/dL Normal 200 [facility] Comment on above: Order Comment: Comme nts: add to AM labs from today. Result Comment: <200 mg/dL Desirable 200-240 mg/dL Borderline >240 mg/dL High Risk Performed By: #### L 100.0100, L500.4100, L500.4050 ####[facility] [address] [place], [address] Cholesterol in HDL [Mass/Vol] 34 mg/dL Low [facility] Comment on above: Order Comment: Comme nts: add to AM labs from today. Result Comment: The drugs N-Acetylcysteine and Metamizole may falselydepress this assay. Reference Range HDL <40 mg/dL Low HDL Cholesterol HDL >or= 60 mg/dL High HDL Cholesterol Performed By: #### L 100.0100, L500.4100, L500.4050 ####[facility] [address] [place], [address] Cholesterol in LDL [Mass/Vol] 69 mg/dL Normal 0-130 [facility] Comment on above: Order Comment: Comme nts: add to AM labs from today. Performed By: #### L 100.0100, L500.4100, L500.4050 ####[facility] [address] [place], [address] Cholesterol in VLDL [Mass/Vol] 49 mg/dL High 5-40 [facility] Comment on above: Order Comment: Comme nts: add to AM labs from today. Performed By: #### L 100.0100, L500.4100, L500.4050 ####[facility] [address] [place], [address] Triglyceride [Mass/Vol] 244 mg/dL High [facility] Comment on above: Order Comment: Comme nts: add to AM labs from today. Result Comment: The drugs N-Acetylcysteine and Metamizole may falselydepress this assay.Serum Triglycerides Reference Interval Normal <150 mg/dL Borderline high 150 - 199 mg/dL High 200 - 499 mg/dL Very High > or = 500 mg/dL Performed By: #### L 100.0100, L500.4100, L500.4050 ####[facility] [address] [place], [address] Bedside Glucoseon 07-06-2024 FINGERSTICK GLU 171 mg/dL High 74-106 [facility] Comment on above: Result Comment: AAMIR QUIROGA OF PATIENT CARE PER NURSING PROTOCOL Performed By: #### L 501.080 ####[facility] [address] [place], [address] FINGERSTICK GLU 110 mg/dL High [address] [place] [address] Comment on above: Result Comment: AAMIR GEMENT OF PATIENT CARE PER NURSING PROTOCOL Performed By: #### L 501.080 ####[facility] [address] [place], [address] FINGERSTICK GLU 182 mg/dL High [address] [place] [address] Comment on above: Result Comment: AAMIR GEMENT OF PATIENT CARE PER NURSING PROTOCOL Performed By: #### L 501.080 ####[facility] [address] [place], [address] FINGERSTICK GLU 218 mg/dL High [address] [place] [address] Comment on above: Result Comment: Dr Maame quiroz FollowedMANAGEMENT OF PATIENT CARE PER NURSING PROTOCOL Performed By: #### L 501.080 ####[facility] [address] [place], [address] FINGERSTICK GLU 126 mg/dL High [address] [place] [address] Comment on above: Result Comment: AAMIR GEMENT OF PATIENT CARE PER NURSING PROTOCOL Performed By: #### L 501.080 ####[facility] [address] [place], [address] Brain without Contraston Brain without Contrast Normal [facility] CBC W/Diff, Automatedon 11-0 Absolute Lymph 1.02 X10 3/uL Normal 0.83-4.51 [facility] Comment on above: Performed By: #### L 100.0100, L500.4050 ####[facility] [address] [place], [address] Absolute Neut 3.7 X10 3/uL Normal 2.0-7.7 [facility] Comment on above: Performed By: #### L 100.0100, L500.4050 ####[facility] [address] [place], [address] Basophils/100 WBC (Bld) 0.2 % Normal 0-1 [facility] Comment on above: Performed By: #### L 100.0100, L500.4050 ####[facility] [address] [place], [address] Eosinophils/100 WBC (Bld) 1.6 % Normal 0-5 [facility] Comment on above: Performed By: #### L 100.0100, L500.4050 ####[facility] [address] [place], [address] Erythrocyte distribution width (RBC) [Ratio] 14.4 % Normal 11.6-14.6 [facility] Comment on above: Performed By: #### L 100.0100, L500.4050 ####[facility] [address] [place], [address] Hematocrit (Bld) [Volume fraction] 24.1 % Low 40-54 [facility] Comment on above: Performed By: #### L 100.0100, L500.4050 ####[facility] [address] [place], [address] Hemoglobin (Bld) [Mass/Vol] 7.9 g/dL Low 13.0-16.5 [facility] Comment on above: Performed By: #### L 100.0100, L500.4050 ####[facility] [address] [place], [address] IG% 0.400 Normal 0.0-0.9 [facility] Comment on above: Result Comment: IG% - Immature Granulocytes (promyelocytes, myelocytes andmetamyelocytes) > 1% indicates that a LEFT SHIFT is Present. Performed By: #### L 100.0100, L500.4050 ####[facility] [address] [place], [address] Lymphocytes/100 WBC (Bld) 19.8 % Normal 19-41 [facility] Comment on above: Performed By: #### L 100.0100, L500.4050 ####[facility] [address] [place], [address] MCH (RBC) [Entitic mass] 29.3 pg Normal 27.0-32.0 [facility] Comment on above: Performed By: #### L 100.0100, L500.4050 ####[facility] [address] [place], [address] MCHC (RBC) [Mass/Vol] 32.8 g/dL Normal 32-36 [facility] Comment on above: Performed By: #### L 100.0100, L500.4050 ####[facility] [address] [place], [address] MCV (RBC) [Entitic vol] 89.3 fL Normal 80-94 [facility] Comment on above: Performed By: #### L 100.0100, L500.4050 ####[facility] [address] [place], [address] Monocytes/100 WBC (Bld) 5.6 % Normal 0-10 [facility] Comment on above: Performed By: #### L 100.0100, L500.4050 ####[facility] [address] [place], [address] Neutrophils/100 WBC (Bld) 72.4 % High 47-70 [facility] Comment on above: Performed By: #### L 100.0100, L500.4050 ####[facility] [address] [place], [address] Nucleated RBC (Bld) [#/Vol] 0 10*3/uL Normal 0-5 [facility] Comment on above: Performed By: #### L 100.0100, L500.4050 ####[facility] [address] [place], [address] Platelet mean volume (Bld) [Entitic vol] 10.5 fL Normal 6.2-12.0 [facility] Comment on above: Performed By: #### L 100.0100, L500.4050 ####[facility] [address] [place], [address] Platelets (Bld) [#/Vol] 150 10*3/uL Normal 150-450 [facility] Comment on above: Performed By: #### L 100.0100, L500.4050 ####[facility] [address] [place], [address] RBC (Bld) [#/Vol] 2.70 10*6/uL Low 4.6-6.2 [facility] Comment on above: Performed By: #### L 100.0100, L500.4050 ####[facility] [address] [place], [address] RDW SD 46.5 fl High 35.1-43.9 [facility] Comment on above: Performed By: #### L 100.0100, L500.4050 ####[facility] [address] [place], [address] WBC (Bld) [#/Vol] 5.2 10*3/uL Normal 4.4-11.0 [facility] Comment on above: Performed By: #### L 100.0100, L500.4050 ####[facility] [address] [place], [address] Comprehensive Metabolic Prof ilon 07-06-2024 Albumin [Mass/Vol] 2.4 g/dL Low 3.2-5.0 [facility] Comment on above: Performed By: #### L 100.0100, L500.4050 ####[facility] [address] [place], [address] Albumin/Globulin [Mass ratio] 0.8 {ratio} Low 0.9-2.4 [facility] Comment on above: Performed By: #### L 100.0100, L500.4050 ####[facility] [address] [place], [address] ALK P 45 U/L Normal 45-117 [facility] Comment on above: Performed By: #### L 100.0100, L500.4050 ####[facility] [address] [place], [address] ALT [Catalytic activity/Vol] 8 U/L Low 16-61 [facility] Comment on above: Performed By: #### L 100.0100, L500.4050 ####[facility] [address] [place], [address] AST [Catalytic activity/Vol] 3 U/L Low 15-37 [facility] Comment on above: Performed By: #### L 100.0100, L500.4050 ####[facility] [address] [place], [address] Bilirubin [Mass/Vol] 0.30 mg/dL Normal 0.20-1.00 [facility] Comment on above: Result Comment: For patients on eltrombopag therapy, use of Dimension [place] TBIL is not recommended. Performed By: #### L 100.0100, L500.4050 ####[facility] [address] [place], [address] BUN/CRE 9.4 RATIO Low 10-20 [facility] Comment on above: Performed By: #### L 100.0100, L500.4050 ####[facility] [address] [place], [address] CA,Total 8.0 mg/dL Low 8.5-10.1 [facility] Comment on above: Performed By: #### L 100.0100, L500.4050 ####[facility] [address] [place], [address] Chloride [Moles/Vol] 110 mmol/L High 98-107 [facility] Comment on above: Performed By: #### L 100.0100, L500.4050 ####[facility] [address] [place], [address] CO2 [Moles/Vol] 17.0 mmol/L Low 21.0-32.0 [facility] Comment on above: Performed By: #### L 100.0100, L500.4050 ####[facility] [address] [place], [address] Creatinine [Mass/Vol] 8.16 mg/dL Invalid Interpretation Code 0.70-1.30 [facility] Comment on above: Result Comment: Crit ical Result(s) Called at: 07:46:29 07/06/2024 by:Juana Alcazar to [facility]. Results read back by same.The validity of the calculated GFR GFRAA in patients over70 years has not been determined. Clinical correlation isessential. Performed By: #### L 100.0100, L500.4050 ####[facility] [address] [place], [address] ECRCL 11.38 ml/min Normal [facility] Comment on above: Performed By: #### L 100.0100, L500.4050 ####[facility] [address] [place], [address] EST GFR - AA 9 mL/min Low >60 [facility] Comment on above: Result Comment: Afri can Angolan GFR Calc Performed By: #### L 100.0100, L500.4050 ####[facility] [address] [place], [address] GAP 8 Normal 5-15 [facility] Comment on above: Performed By: #### L 100.0100, L500.4050 ####[facility] [address] [place], [address] GFR/1.73 sq M.predicted among non-blacks MDRD (S/P/Bld) [Vol rate/Area] 7 mL/min/{1.73_m2} Low >60 [facility] Comment on above: Result Comment: Non- GFR Calc Performed By: #### L 100.0100, L500.4050 ####[facility] [address] [place], [address] Globulin (S) [Mass/Vol] 3.0 g/dL Normal 2.2-4.2 [facility] Comment on above: Performed By: #### L 100.0100, L500.4050 ####[facility] [address] [place], [address] Glucose [Mass/Vol] 127 mg/dL High 74-106 [facility] Comment on above: Result Comment: Fast ing Glucose result greater than or equal to 126 mg/dLsuggests DIABETES MELLITUS per A.D.A. criteria. Performed By: #### L 100.0100, L500.4050 ####[facility] [address] [place], [address] Potassium [Moles/Vol] 4.6 mmol/L Normal 3.5-5.1 [facility] Comment on above: Performed By: #### L 100.0100, L500.4050 ####[facility] [address] [place], [address] Sodium [Moles/Vol] 135 mmol/L Low 136-145 [facility] Comment on above: Performed By: #### L 100.0100, L500.4050 ####[facility] [address] [place], [address] T PROT 5.4 g/dL Low 6.4-8.2 [facility] Comment on above: Performed By: #### L 100.0100, L500.4050 ####[facility] [address] [place], [address] Urea nitrogen [Mass/Vol] 77 mg/dL High 7-18 [facility] Comment on above: Performed By: #### L 100.0100, L500.4050 ####[facility] [address] [place], [address] Echo Complete W/ Contraston 07-06-2024 Echo Complete W/ Contrast Normal [facility] Hemoglobin A1con 07-06-2024 HbA1c (Bld) [Mass fraction] 6.4 % High 3.8-5.6 [facility] Comment on above: Order Comment: Comme nts: add to am labs Result Comment: Norm al < 5.7 % Prediabetic 5.7 - 6.4 % Diabetic >or= 6.5 % Please note range changes. Performed By: #### L 501.9985, L501.9520 ####[facility] [address] [place], [place], [address] MR/CON.PCM.NEon 07-06-2024 MR/CON.PCM.NE Normal [facility] STROKE Brain/Head without Co nton 07-06-2024 STROKE Brain/Head without Cont Normal [facility] STROKE CTA Head AND Neck W/C onon 07-06-2024 STROKE CTA Head AND Neck W/Con Normal [facility] T4 Free Directon 07-06-2024 T4 FREE DIRECT 0.61 ng/dL Low 0.76-1.46 [facility] Comment on above: Order Comment: add t o am labs from earlier Performed By: #### L 506.0400 ####[facility] [address] [place], [place], [id number] Thyroid Stim Hormone (TSH)on 07-06-2024 TSH 0.294 uIU/mL Low 0.358-3.740 [facility] Comment on above: Order Comment: Comme nts: add to am labs Performed By: #### L 501.9985, L501.9520 ####[facility] [address] [place], [address] Bedside Glucoseon 07-05-2024 FINGERSTICK GLU 185 mg/dL High 74-106 [facility] Comment on above: Result Comment: AAMIR GEMENT OF PATIENT CARE PER NURSING PROTOCOL Performed By: #### L 501.080 ####[facility] [address] [place], [address] FINGERSTICK GLU 130 mg/dL High -106 [facility] Comment on above: Result Comment: AAMIR GEMENT OF PATIENT CARE PER NURSING PROTOCOL Performed By: #### L 501.080 ####[facility] [address] [place], [address] FINGERSTICK GLU 174 mg/dL High 74-106 [facility] Comment on above: Result Comment: AAMIR GEMENT OF PATIENT CARE PER NURSING PROTOCOL Performed By: #### L 501.080 ####[facility] [address] [place], [address] FINGERSTICK GLU 129 mg/dL High -106 [facility] Comment on above: Result Comment: AAMIR GEMENT OF PATIENT CARE PER NURSING PROTOCOL Performed By: #### L 501.080 ####[facility] [address] [place], [address] FINGERSTICK GLU 132 mg/dL High 74-106 [facility] Comment on above: Result Comment: AAMIR GEMENT OF PATIENT CARE PER NURSING PROTOCOL Performed By: #### L 501.080 ####[facility] [address] [place], [address] FINGERSTICK GLU 136 mg/dL High 74-106 [facility] Comment on above: Result Comment: AAMIR GEMENT OF PATIENT CARE PER NURSING PROTOCOL Performed By: #### L 501.080 ####[facility] [address] [place], [address] CBC W/Diff, Automatedon 11-0 8-4 Absolute Lymph 1.36 X10 3/uL Normal 0.83-4.51 [facility] Comment on above: Performed By: #### L 500.4050, L100.0100 ####[facility] [address] [place], [address] Absolute Neut 5.1 X10 3/uL Normal 2.0-7.7 [facility] Comment on above: Performed By: #### L 500.4050, L100.0100 ####[facility] [address] [place], [address] Basophils/100 WBC (Bld) 0.4 % Normal 0-1 [facility] Comment on above: Performed By: #### L 500.4050, L100.0100 ####[facility] [address] [place], [address] Eosinophils/100 WBC (Bld) 1.7 % Normal 0-5 [facility] Comment on above: Performed By: #### L 500.4050, L100.0100 ####[facility] [address] [place], [address] Erythrocyte distribution width (RBC) [Ratio] 14.3 % Normal 11.6-14.6 [facility] Comment on above: Performed By: #### L 500.4050, L100.0100 ####[facility] [address] [place], [address] Hematocrit (Bld) [Volume fraction] 24.2 % Low 40-54 [facility] Comment on above: Performed By: #### L 500.4050, L100.0100 ####[facility] [address] [place], [address] Hemoglobin (Bld) [Mass/Vol] 8.1 g/dL Low 13.0-16.5 [facility] Comment on above: Performed By: #### L 500.4050, L100.0100 ####[facility] [address] [place], [address] IG% 0.700 Normal 0.0-0.9 [facility] Comment on above: Result Comment: IG% - Immature Granulocytes (promyelocytes, myelocytes andmetamyelocytes) > 1% indicates that a LEFT SHIFT is Present. Performed By: #### L 500.4050, L100.0100 ####[facility] [address] [place], [address] Lymphocytes/100 WBC (Bld) 19.0 % Normal 19-41 [facility] Comment on above: Performed By: #### L 500.4050, L100.0100 ####[facility] [address] [place], [address] MCH (RBC) [Entitic mass] 29.6 pg Normal 27.0-32.0 [facility] Comment on above: Performed By: #### L 500.4050, L100.0100 ####[facility] [address] [place], [address] MCHC (RBC) [Mass/Vol] 33.5 g/dL Normal 32-36 [facility] Comment on above: Performed By: #### L 500.4050, L100.0100 ####[facility] [address] [place], [address] MCV (RBC) [Entitic vol] 88.3 fL Normal 80-94 [facility] Comment on above: Performed By: #### L 500.4050, L100.0100 ####[facility] [address] [place], [address] Monocytes/100 WBC (Bld) 6.8 % Normal 0-10 [facility] Comment on above: Performed By: #### L 500.4050, L100.0100 ####[facility] [address] [place], [address] Neutrophils/100 WBC (Bld) 71.4 % High 47-70 [facility] Comment on above: Performed By: #### L 500.4050, L100.0100 ####[facility] [address] [place], [address] Nucleated RBC (Bld) [#/Vol] 0 10*3/uL Normal 0-5 [facility] Comment on above: Performed By: #### L 500.4050, L100.0100 ####[facility] [address] [place], [address] Platelet mean volume (Bld) [Entitic vol] 10.2 fL Normal 6.2-12.0 [facility] Comment on above: Performed By: #### L 500.4050, L100.0100 ####[facility] [address] [place], [address] Platelets (Bld) [#/Vol] 170 10*3/uL Normal 150-450 [facility] Comment on above: Performed By: #### L 500.4050, L100.0100 ####[facility] [address] [place], [address] RBC (Bld) [#/Vol] 2.74 10*6/uL Low 4.6-6.2 [facility] Comment on above: Performed By: #### L 500.4050, L100.0100 ####[facility] [address] [place], [address] RDW SD 46.1 fl High 35.1-43.9 [facility] Comment on above: Performed By: #### L 500.4050, L100.0100 ####[facility] [address] [place], [address] WBC (Bld) [#/Vol] 7.2 10*3/uL Normal 4.4-11.0 [facility] Comment on above: Performed By: #### L 500.4050, L100.0100 ####[facility] [address] [place], [address] CXR for Line Placementon CXR for Line Placement Normal [facility] Comprehensive Metabolic Prof ilon 07-05-2024 Albumin [Mass/Vol] 2.5 g/dL Low 3.2-5.0 [facility] Comment on above: Performed By: #### L 500.4050, L100.0100 ####[facility] [address] [place], [address] Albumin/Globulin [Mass ratio] 0.8 {ratio} Low 0.9-2.4 [facility] Comment on above: Performed By: #### L 500.4050, L100.0100 ####[facility] [address] [place], [address] ALK P 48 U/L Normal 45-117 [facility] Comment on above: Performed By: #### L 500.4050, L100.0100 ####[facility] [address] [place], [address] ALT [Catalytic activity/Vol] 11 U/L Low 16-61 [facility] Comment on above: Performed By: #### L 500.4050, L100.0100 ####[facility] [address] [place], [address] AST [Catalytic activity/Vol] 5 U/L Low 15-37 [facility] Comment on above: Performed By: #### L 500.4050, L100.0100 ####[facility] [address] [place], [address] Bilirubin [Mass/Vol] 0.30 mg/dL Normal 0.20-1.00 [facility] Comment on above: Result Comment: For patients on eltrombopag therapy, use of Dimension [place] TBIL is not recommended. Performed By: #### L 500.4050, L100.0100 ####[facility] [address] [place], [address] BUN/CRE 9.9 RATIO Low 10-20 [facility] Comment on above: Performed By: #### L 500.4050, L100.0100 ####[facility] [address] [place], [address] CA,Total 8.0 mg/dL Low 8.5-10.1 [facility] Comment on above: Performed By: #### L 500.4050, L100.0100 ####[facility] [address] [place], [address] Chloride [Moles/Vol] 109 mmol/L High 98-107 [facility] Comment on above: Performed By: #### L 500.4050, L100.0100 ####[facility] [address] [place], [address] CO2 [Moles/Vol] 15.0 mmol/L Low 21.0-32.0 [facility] Comment on above: Performed By: #### L 500.4050, L100.0100 ####[facility] [address] [place], [address] Creatinine [Mass/Vol] 9.10 mg/dL Invalid Interpretation Code 0.70-1.30 [facility] Comment on above: Result Comment: Crit ical Result(s) Called at: 08:57:24 07/05/2024 by: Kristen to Jessica Garcia. Results read back by same.The validity of the calculated GFR GFRAA in patients over70 years has not been determined. Clinical correlation isessential. Performed By: #### L 500.4050, L100.0100 ####[facility] [address] [place], [address] ECRCL 10.12 ml/min Normal [facility] Comment on above: Performed By: #### L 500.4050, L100.0100 ####[facility] [address] [place], [address] EST GFR - AA 8 mL/min Low >60 [facility] Comment on above: Result Comment: Afri can Angolan GFR Calc Performed By: #### L 500.4050, L100.0100 ####[facility] [address] [place], [address] GAP 10 Normal 5-15 [facility] Comment on above: Performed By: #### L 500.4050, L100.0100 ####[facility] [address] [place], [address] GFR/1.73 sq M.predicted among non-blacks MDRD (S/P/Bld) [Vol rate/Area] 6 mL/min/{1.73_m2} Low >60 [facility] Comment on above: Result Comment: Non- GFR Calc Performed By: #### L 500.4050, L100.0100 ####[facility] [address] [place], [address] Globulin (S) [Mass/Vol] 3.3 g/dL Normal 2.2-4.2 [facility] Comment on above: Performed By: #### L 500.4050, L100.0100 ####[facility] [address] [place], [address] Glucose [Mass/Vol] 134 mg/dL High 74-106 [facility] Comment on above: Result Comment: Fast ing Glucose result greater than or equal to 126 mg/dLsuggests DIABETES MELLITUS per A.D.A. criteria. Performed By: #### L 500.4050, L100.0100 ####[facility] [address] [place], [address] Potassium [Moles/Vol] 5.4 mmol/L High 3.5-5.1 [facility] Comment on above: Performed By: #### L 500.4050, L100.0100 ####[facility] [address] [place], [address] Sodium [Moles/Vol] 133 mmol/L Low 136-145 [facility] Comment on above: Performed By: #### L 500.4050, L100.0100 ####[facility] [address] [place], [address] T PROT 5.8 g/dL Low 6.4-8.2 [facility] Comment on above: Performed By: #### L 500.4050, L100.0100 ####[facility] [address] [place], [address] Urea nitrogen [Mass/Vol] 90 mg/dL High 7-18 [facility] Comment on above: Performed By: #### L 500.4050, L100.0100 ####[facility] [address] [place], [address] Hepatitis B Surface Antigeno n 07-05-2024 HEP B Surf Ag Non-Reactive Normal Nonreactive [facility] Comment on above: Order Comment: Reaso n for Exam: outpatient dialysis Performed By: #### L 3890.6100 ####[facility] [address] [place], [address] MR/POSTOP.ANEon 07-05-2024 MR/POSTOP.ANE Normal [facility] Operative Reporton Operative Report Normal [facility] 12 Lead EKGon 07-04-2024 12 Lead EKG Normal [facility] Basic Metabolic Profile (BMP )on 07-04-2024 BUN/CRE 9.8 RATIO Low 10-20 [facility] Comment on above: Performed By: #### L 500.2500, L300.3900, L501.5200, L501.2300 ####[facility] [address] [place], [address] CA,Total 8.0 mg/dL Low 8.5-10.1 [facility] Comment on above: Performed By: #### L 500.2500, L300.3900, L501.5200, L501.2300 ####[facility] [address] [place], [address] Chloride [Moles/Vol] 106 mmol/L Normal 98-107 [facility] Comment on above: Performed By: #### L 500.2500, L300.3900, L501.5200, L501.2300 ####[facility] [address] [place], [address] CO2 [Moles/Vol] 14.0 mmol/L Low 21.0-32.0 [facility] Comment on above: Performed By: #### L 500.2500, L300.3900, L501.5200, L501.2300 ####[facility] [address] [place], [address] Creatinine [Mass/Vol] 8.77 mg/dL Invalid Interpretation Code 0.70-1.30 [facility] Comment on above: Result Comment: Crit ical Result(s) Called at: 07:14:43 07/04/2024 by:Juana Alcazar to Alicia Shields. Results read back bysame.The validity of the calculated GFR GFRAA in patients over70 years has not been determined. Clinical correlation isessential. Performed By: #### L 500.2500, L300.3900, L501.5200, L501.2300 ####[facility] [address] [place], [address] ECRCL 10.49 ml/min Normal [facility] Comment on above: Performed By: #### L 500.2500, L300.3900, L501.5200, L501.2300 ####[facility] [address] [place], [address] EST GFR - AA 8 mL/min Low >60 [facility] Comment on above: Result Comment: Afri can Angolan GFR Calc Performed By: #### L 500.2500, L300.3900, L501.5200, L501.2300 ####[facility] [address] [place], [address] GAP 11 Normal 5-15 [facility] Comment on above: Performed By: #### L 500.2500, L300.3900, L501.5200, L501.2300 ####[facility] [address] [place], [address] GFR/1.73 sq M.predicted among non-blacks MDRD (S/P/Bld) [Vol rate/Area] 7 mL/min/{1.73_m2} Low >60 [facility] Comment on above: Result Comment: Non- GFR Calc Performed By: #### L 500.2500, L300.3900, L501.5200, L501.2300 ####[facility] [address] [place], [address] Glucose [Mass/Vol] 138 mg/dL High 74-106 [facility] Comment on above: Result Comment: Fast ing Glucose result greater than or equal to 126 mg/dLsuggests DIABETES MELLITUS per A.D.A. criteria. Performed By: #### L 500.2500, L300.3900, L501.5200, L501.2300 ####[facility] [address] [place], [address] Potassium [Moles/Vol] 5.0 mmol/L Normal 3.5-5.1 [facility] Comment on above: Performed By: #### L 500.2500, L300.3900, L501.5200, L501.2300 ####[facility] [address] [place], [address] Sodium [Moles/Vol] 132 mmol/L Low 136-145 [facility] Comment on above: Performed By: #### L 500.2500, L300.3900, L501.5200, L501.2300 ####[facility] [address] [place], [address] Urea nitrogen [Mass/Vol] 86 mg/dL High 7-18 [facility] Comment on above: Performed By: #### L 500.2500, L300.3900, L501.5200, L501.2300 ####[facility] [address] [place], [address] Bedside Glucoseon 07-04-2024 FINGERSTICK GLU 193 mg/dL High 74-106 [facility] Comment on above: Result Comment: AAMIR GEMENT OF PATIENT CARE PER NURSING PROTOCOL Performed By: #### L 501.080 ####[facility] [address] [place], [address] FINGERSTICK GLU 214 mg/dL High 74-106 [facility] Comment on above: Result Comment: AAMIR GEMENT OF PATIENT CARE PER NURSING PROTOCOL Performed By: #### L 501.080 ####[facility] [address] [place], [address] FINGERSTICK GLU 126 mg/dL High 74-106 [facility] Comment on above: Result Comment: AAMIR GEMENT OF PATIENT CARE PER NURSING PROTOCOL Performed By: #### L 501.080 ####[facility] [address] [place], [address] FINGERSTICK GLU 124 mg/dL High 74-106 [facility] Comment on above: Result Comment: AAMIR GEMENT OF PATIENT CARE PER NURSING PROTOCOL Performed By: #### L 501.080 ####[facility] [address] [place], [address] CBC-Complete Blood Cnt No Di ffon 07-04-2024 Erythrocyte distribution width (RBC) [Ratio] 14.3 % Normal 11.6-14.6 [facility] Comment on above: Performed By: #### L 100.0500 ####[facility] [address] [place], [address] Hematocrit (Bld) [Volume fraction] 26.8 % Low 40-54 [facility] Comment on above: Performed By: #### L 100.0500 ####[facility] [address] [place], [address] Hemoglobin (Bld) [Mass/Vol] 8.9 g/dL Low 13.0-16.5 [facility] Comment on above: Performed By: #### L 100.0500 ####[facility] [address] [place], [address] MCH (RBC) [Entitic mass] 29.9 pg Normal 27.0-32.0 [facility] Comment on above: Performed By: #### L 100.0500 ####[facility] [address] [place], [address] MCHC (RBC) [Mass/Vol] 33.2 g/dL Normal 32-36 [facility] Comment on above: Performed By: #### L 100.0500 ####[facility] [address] [place], [address] MCV (RBC) [Entitic vol] 89.9 fL Normal 80-94 [facility] Comment on above: Performed By: #### L 100.0500 ####[facility] [address] [place], [address] Platelet mean volume (Bld) [Entitic vol] 10.3 fL Normal 6.2-12.0 [facility] Comment on above: Performed By: #### L 100.0500 ####[facility] [address] [place], [address] Platelets (Bld) [#/Vol] 219 10*3/uL Normal 150-450 [facility] Comment on above: Performed By: #### L 100.0500 ####[facility] [address] [place], [address] RBC (Bld) [#/Vol] 2.98 10*6/uL Low 4.6-6.2 [facility] Comment on above: Performed By: #### L 100.0500 ####[facility] [address] [place], [address] RDW SD 46.7 fl High 35.1-43.9 [facility] Comment on above: Performed By: #### L 100.0500 ####[facility] [address] [place], [address] WBC (Bld) [#/Vol] 9.6 10*3/uL Normal 4.4-11.0 [facility] Comment on above: Performed By: #### L 100.0500 ####[facility] [address] [place], [address] Consultation - Nephrologyon 07-04-2024 Consultation - Nephrology Normal [facility] Consultation - Surgicalon Consultation - Surgical Normal [facility] Magnesiumon 07-04-2024 Magnesium [Mass/Vol] 2.1 mg/dL Normal 1.6-2.6 [facility] Comment on above: Performed By: #### L 500.2500, L300.3900, L501.5200, L501.2300 ####[facility] [address] [place], [address] Phosphoruson 07-04-2024 Phosphate [Mass/Vol] 8.1 mg/dL High 2.5-4.9 [facility] Comment on above: Performed By: #### L 500.2500, L300.3900, L501.5200, L501.2300 ####[facility] [address] [place], [address] Prothrombin Time w/INRon INR Coag (PPP) [Relative time] 1.2 {INR} Normal [facility] Comment on above: Performed By: #### L 500.2500, L300.3900, L501.5200, L501.2300 ####[facility] [address] [place], [address] PT Coag (PPP) [Time] 15.4 s High 11.7-14.9 [facility] Comment on above: Performed By: #### L 500.2500, L300.3900, L501.5200, L501.2300 ####[facility] [address] [place], [address] Basic Metabolic Profile (BMP )on 07-03-2024 BUN Normal 7-18 [facility] Comment on above: Result Comment: CMP ALREADY DONE THIS MORNING- OVERLAPPING Performed By: #### L 500.2500 ####[facility] [address] [place], [address] BUN/CRE Normal 10-20 [facility] Comment on above: Result Comment: CMP ALREADY DONE THIS MORNING- OVERLAPPING Performed By: #### L 500.2500 ####[facility] [address] [place], [address] CA,Total Normal 8.5-10.1 [facility] Comment on above: Result Comment: CMP ALREADY DONE THIS MORNING- OVERLAPPING Performed By: #### L 500.2500 ####[facility] [address] [place], [address] CL Normal 98-107 [facility] Comment on above: Result Comment: CMP ALREADY DONE THIS MORNING- OVERLAPPING Performed By: #### L 500.2500 ####[facility] [address] [place], [address] CO2 Normal 21.0-32.0 [facility] Comment on above: Result Comment: CMP ALREADY DONE THIS MORNING- OVERLAPPING Performed By: #### L 500.2500 ####[facility] [address] [place], [address] CREAT,SERUM Normal 0.70-1.30 [facility] Comment on above: Result Comment: CMP ALREADY DONE THIS MORNING- OVERLAPPING Performed By: #### L 500.2500 ####[facility] [address] [place], [address] EST GFR Normal >60 [facility] Comment on above: Result Comment: CMP ALREADY DONE THIS MORNING- OVERLAPPING Performed By: #### L 500.2500 ####[facility] [address] [place], [address] EST GFR - AA Normal >60 [facility] Comment on above: Result Comment: CMP ALREADY DONE THIS MORNING- OVERLAPPING Performed By: #### L 500.2500 ####[facility] [address] [place], [address] GAP Normal 5-15 [facility] Comment on above: Result Comment: CMP ALREADY DONE THIS MORNING- OVERLAPPING Performed By: #### L 500.2500 ####[facility] [address] [place], [address] GLU Normal 74-106 [facility] Comment on above: Result Comment: CMP ALREADY DONE THIS MORNING- OVERLAPPING Performed By: #### L 500.2500 ####[facility] [address] [place], [address] Potassium Normal 3.5-5.1 [facility] Comment on above: Result Comment: CMP ALREADY DONE THIS MORNING- OVERLAPPING Performed By: #### L 500.2500 ####[facility] [address] [place], [address] Basic Metabolic Profile (BMP) Normal 136-145 [facility] Comment on above: Result Comment: CMP ALREADY DONE THIS MORNING- OVERLAPPING Performed By: #### L 500.2500 ####[facility] [address] [place], [address] Bedside Glucoseon 07-03-2024 FINGERSTICK GLU 137 mg/dL High 74-106 [facility] Comment on above: Result Comment: AAMIR GEMENT OF PATIENT CARE PER NURSING PROTOCOL Performed By: #### L 501.080 ####[facility] [address] [place], [address] FINGERSTICK GLU 133 mg/dL High 74-106 [facility] Comment on above: Result Comment: AAMIR GEMENT OF PATIENT CARE PER NURSING PROTOCOL Performed By: #### L 501.080 ####[facility] [address] [place], [address] FINGERSTICK GLU 115 mg/dL High 74-106 [facility] Comment on above: Result Comment: AAMIR GEMENT OF PATIENT CARE PER NURSING PROTOCOL Performed By: #### L 501.080 ####[facility] [address] [place], [address] FINGERSTICK GLU 110 mg/dL High 74-106 [facility] Comment on above: Result Comment: AAMIR GEMENT OF PATIENT CARE PER NURSING PROTOCOL Performed By: #### L 501.080 ####[facility] [address] [place], [address] CBC W/Diff, Automatedon 11-0 Absolute Lymph 1.48 X10 3/uL Normal 0.83-4.51 [facility] Comment on above: Performed By: #### L 500.4050, L501.2300, L100.0100, L300.3900, L501.9520, L501.5200, L501.9985 ####[facility] [address] [place], [address] Absolute Neut 4.8 X10 3/uL Normal 2.0-7.7 [facility] Comment on above: Performed By: #### L 500.4050, L501.2300, L100.0100, L300.3900, L501.9520, L501.5200, L501.9985 ####[facility] [address] [place], [address] Basophils/100 WBC (Bld) 0.4 % Normal 0-1 [facility] Comment on above: Performed By: #### L 500.4050, L501.2300, L100.0100, L300.3900, L501.9520, L501.5200, L501.9985 ####[facility] [address] [place], [address] Eosinophils/100 WBC (Bld) 1.3 % Normal 0-5 [facility] Comment on above: Performed By: #### L 500.4050, L501.2300, L100.0100, L300.3900, L501.9520, L501.5200, L501.9985 ####[facility] [address] [place], [address] Erythrocyte distribution width (RBC) [Ratio] 14.1 % Normal 11.6-14.6 [facility] Comment on above: Performed By: #### L 500.4050, L501.2300, L100.0100, L300.3900, L501.9520, L501.5200, L501.9985 ####[facility] [address] [place], [address] Hematocrit (Bld) [Volume fraction] 25.2 % Low 40-54 [facility] Comment on above: Performed By: #### L 500.4050, L501.2300, L100.0100, L300.3900, L501.9520, L501.5200, L501.9985 ####[facility] [address] [place], [address] Hemoglobin (Bld) [Mass/Vol] 8.4 g/dL Low 13.0-16.5 [facility] Comment on above: Performed By: #### L 500.4050, L501.2300, L100.0100, L300.3900, L501.9520, L501.5200, L501.9985 ####[facility] [address] [place], [address] IG% 1.000 High 0.0-0.9 [facility] Comment on above: Result Comment: IG% - Immature Granulocytes (promyelocytes, myelocytes andmetamyelocytes) > 1% indicates that a LEFT SHIFT is Present. Performed By: #### L 500.4050, L501.2300, L100.0100, L300.3900, L501.9520, L501.5200, L501.9985 ####[facility] [address] [place], [address] Lymphocytes/100 WBC (Bld) 21.9 % Normal 19-41 [facility] Comment on above: Performed By: #### L 500.4050, L501.2300, L100.0100, L300.3900, L501.9520, L501.5200, L501.9985 ####[facility] [address] [place], [address] MCH (RBC) [Entitic mass] 30.0 pg Normal 27.0-32.0 [facility] Comment on above: Performed By: #### L 500.4050, L501.2300, L100.0100, L300.3900, L501.9520, L501.5200, L501.9985 ####[facility] [address] [place], [address] MCHC (RBC) [Mass/Vol] 33.3 g/dL Normal 32-36 [facility] Comment on above: Performed By: #### L 500.4050, L501.2300, L100.0100, L300.3900, L501.9520, L501.5200, L501.9985 ####[facility] [address] [place], [address] MCV (RBC) [Entitic vol] 90.0 fL Normal 80-94 [facility] Comment on above: Performed By: #### L 500.4050, L501.2300, L100.0100, L300.3900, L501.9520, L501.5200, L501.9985 ####[facility] [address] [place], [address] Monocytes/100 WBC (Bld) 5.2 % Normal 0-10 [facility] Comment on above: Performed By: #### L 500.4050, L501.2300, L100.0100, L300.3900, L501.9520, L501.5200, L501.9985 ####[facility] [address] [place], [address] Neutrophils/100 WBC (Bld) 70.2 % High 47-70 [facility] Comment on above: Performed By: #### L 500.4050, L501.2300, L100.0100, L300.3900, L501.9520, L501.5200, L501.9985 ####[facility] [address] [place], [address] Nucleated RBC (Bld) [#/Vol] 0 10*3/uL Normal 0-5 [facility] Comment on above: Performed By: #### L 500.4050, L501.2300, L100.0100, L300.3900, L501.9520, L501.5200, L501.9985 ####[facility] [address] [place], [address] Platelet mean volume (Bld) [Entitic vol] 10.5 fL Normal 6.2-12.0 [facility] Comment on above: Performed By: #### L 500.4050, L501.2300, L100.0100, L300.3900, L501.9520, L501.5200, L501.9985 ####[facility] [address] [place], [address] Platelets (Bld) [#/Vol] 180 10*3/uL Normal 150-450 [facility] Comment on above: Performed By: #### L 500.4050, L501.2300, L100.0100, L300.3900, L501.9520, L501.5200, L501.9985 ####[facility] [address] [place], [address] RBC (Bld) [#/Vol] 2.80 10*6/uL Low 4.6-6.2 [facility] Comment on above: Performed By: #### L 500.4050, L501.2300, L100.0100, L300.3900, L501.9520, L501.5200, L501.9985 ####[facility] [address] [place], [address] RDW SD 46.3 fl High 35.1-43.9 [facility] Comment on above: Performed By: #### L 500.4050, L501.2300, L100.0100, L300.3900, L501.9520, L501.5200, L501.9985 ####[facility] [address] [place], [address] WBC (Bld) [#/Vol] 6.8 10*3/uL Normal 4.4-11.0 [facility] Comment on above: Performed By: #### L 500.4050, L501.2300, L100.0100, L300.3900, L501.9520, L501.5200, L501.9985 ####[facility] [address] [place], [address] Carbamazepine (Tegretol)on 09-02-2023 CARBAMAZEPINE 7.5 ug/mL Normal 4.0-12.0 [facility] Comment on above: Performed By: #### L 501.7900 ####[facility] [address] [place], [address] Colonoscopy Reporton Colonoscopy Report Normal [facility] Comprehensive Metabolic Prof ilon 07-03-2024 Albumin [Mass/Vol] 2.7 g/dL Low 3.2-5.0 [facility] Comment on above: Performed By: #### L 500.4050, L501.2300, L100.0100, L300.3900, L501.9520, L501.5200, L501.9985 ####[facility] [address] [place], [address] Albumin/Globulin [Mass ratio] 0.7 {ratio} Low 0.9-2.4 [facility] Comment on above: Performed By: #### L 500.4050, L501.2300, L100.0100, L300.3900, L501.9520, L501.5200, L501.9985 ####[facility] [address] [place], [address] ALK P 43 U/L Low 45-117 [facility] Comment on above: Performed By: #### L 500.4050, L501.2300, L100.0100, L300.3900, L501.9520, L501.5200, L501.9985 ####[facility] [address] [place], [address] ALT [Catalytic activity/Vol] 15 U/L Low 16-61 [facility] Comment on above: Performed By: #### L 500.4050, L501.2300, L100.0100, L300.3900, L501.9520, L501.5200, L501.9985 ####[facility] [address] [place], [address] AST [Catalytic activity/Vol] 8 U/L Low 15-37 [facility] Comment on above: Performed By: #### L 500.4050, L501.2300, L100.0100, L300.3900, L501.9520, L501.5200, L501.9985 ####[facility] [address] [place], [address] Bilirubin [Mass/Vol] 0.30 mg/dL Normal 0.20-1.00 [facility] Comment on above: Result Comment: For patients on eltrombopag therapy, use of Dimension [place] TBIL is not recommended. Performed By: #### L 500.4050, L501.2300, L100.0100, L300.3900, L501.9520, L501.5200, L501.9985 ####[facility] [address] [place], [address] BUN/CRE 10.3 RATIO Normal 10-20 [facility] Comment on above: Performed By: #### L 500.4050, L501.2300, L100.0100, L300.3900, L501.9520, L501.5200, L501.9985 ####[facility] [address] [place], [address] CA,Total 7.6 mg/dL Low 8.5-10.1 [facility] Comment on above: Performed By: #### L 500.4050, L501.2300, L100.0100, L300.3900, L501.9520, L501.5200, L501.9985 ####[facility] [address] [place], [address] Chloride [Moles/Vol] 108 mmol/L High 98-107 [facility] Comment on above: Performed By: #### L 500.4050, L501.2300, L100.0100, L300.3900, L501.9520, L501.5200, L501.9985 ####[facility] [address] [place], [address] CO2 [Moles/Vol] 16.0 mmol/L Low 21.0-32.0 [facility] Comment on above: Performed By: #### L 500.4050, L501.2300, L100.0100, L300.3900, L501.9520, L501.5200, L501.9985 ####[facility] [address] [place], [address] Creatinine [Mass/Vol] 8.67 mg/dL Invalid Interpretation Code 0.70-1.30 [facility] Comment on above: Result Comment: Crit ical Result(s) Called at: 06:43:05 07/03/2024 by:Juana Alcazar to cipriano celis. Results read back bysame.The validity of the calculated GFR GFRAA in patients over70 years has not been determined. Clinical correlation isessential. Performed By: #### L 500.4050, L501.2300, L100.0100, L300.3900, L501.9520, L501.5200, L501.9985 ####[facility] [address] [place], [address] ECRCL 10.62 ml/min Normal [facility] Comment on above: Performed By: #### L 500.4050, L501.2300, L100.0100, L300.3900, L501.9520, L501.5200, L501.9985 ####[facility] [address] [place], [address] EST GFR - AA 8 mL/min Low >60 [facility] Comment on above: Result Comment: Afri can Angolan GFR Calc Performed By: #### L 500.4050, L501.2300, L100.0100, L300.3900, L501.9520, L501.5200, L501.9985 ####[facility] [address] [place], [address] GAP 11 Normal 5-15 [facility] Comment on above: Performed By: #### L 500.4050, L501.2300, L100.0100, L300.3900, L501.9520, L501.5200, L501.9985 ####[facility] [address] [place], [place], [address] GFR/1.73 sq M.predicted among non-blacks MDRD (S/P/Bld) [Vol rate/Area] 7 mL/min/{1.73_m2} Low >60 [facility] Comment on above: Result Comment: Non- GFR Calc Performed By: #### L 500.4050, L501.2300, L100.0100, L300.3900, L501.9520, L501.5200, L501.9985 ####[facility] [address] [place], [place], [address] Globulin (S) [Mass/Vol] 3.7 g/dL Normal 2.2-4.2 [facility] Comment on above: Performed By: #### L 500.4050, L501.2300, L100.0100, L300.3900, L501.9520, L501.5200, L501.9985 ####[facility] [address] [place], [address] Glucose [Mass/Vol] 117 mg/dL High 74-106 [facility] Comment on above: Result Comment: Fast ing Glucose result from 100 to 125 mg/dLsuggests IMPAIRED HOMEOSTASIS per A.D.A. criteria. Performed By: #### L 500.4050, L501.2300, L100.0100, L300.3900, L501.9520, L501.5200, L501.9985 ####[facility] [address] [place], [address] Potassium [Moles/Vol] 5.5 mmol/L High 3.5-5.1 [facility] Comment on above: Performed By: #### L 500.4050, L501.2300, L100.0100, L300.3900, L501.9520, L501.5200, L501.9985 ####[facility] [address] [place], [address] Sodium [Moles/Vol] 135 mmol/L Low 136-145 [facility] Comment on above: Performed By: #### L 500.4050, L501.2300, L100.0100, L300.3900, L501.9520, L501.5200, L501.9985 ####[facility] [address] [place], [address] T PROT 6.4 g/dL Normal 6.4-8.2 [facility] Comment on above: Performed By: #### L 500.4050, L501.2300, L100.0100, L300.3900, L501.9520, L501.5200, L501.9985 ####[facility] [address] [place], [address] Urea nitrogen [Mass/Vol] 89 mg/dL High 7-18 [facility] Comment on above: Performed By: #### L 500.4050, L501.2300, L100.0100, L300.3900, L501.9520, L501.5200, L501.9985 ####[facility] [address] [place], [address] EGD Reporton 07-03-2024 EGD Report Normal [facility] Hemoglobin A1con 07-03-2024 HbA1c (Bld) [Mass fraction] 6.4 % High 3.8-5.6 [facility] Comment on above: Result Comment: Norm al < 5.7 % Prediabetic 5.7 - 6.4 % Diabetic >or= 6.5 % Please note range changes. Performed By: #### L 500.4050, L501.2300, L100.0100, L300.3900, L501.9520, L501.5200, L501.9985 ####[facility] [address] [place], [address] MR/POSTOP.ANEon 07-03-2024 MR/POSTOP.ANE Normal [facility] MR/UVJMFUBU4nk 07-03-2024 MR/POSTOPAN2 Normal [facility] Magnesiumon 07-03-2024 Magnesium [Mass/Vol] 1.3 mg/dL Low 1.6-2.6 [facility] Comment on above: Performed By: #### L 500.4050, L501.2300, L100.0100, L300.3900, L501.9520, L501.5200, L501.9985 ####[facility] [address] [place], [address] Partial Thromboplast Timeon 07-03-2024 aPTT Coag (Bld) [Time] 35.5 s Normal 24.1-36.2 [facility] Comment on above: Performed By: #### L 300.4310 ####[facility] [address] [place], [address] Phosphoruson 07-03-2024 Phosphate [Mass/Vol] 8.0 mg/dL High 2.5-4.9 [facility] Comment on above: Performed By: #### L 500.4050, L501.2300, L100.0100, L300.3900, L501.9520, L501.5200, L501.9985 ####[facility] [address] [place], [address] Prothrombin Time w/INRon INR Coag (PPP) [Relative time] 1.2 {INR} Normal [facility] Comment on above: Performed By: #### L 500.4050, L501.2300, L100.0100, L300.3900, L501.9520, L501.5200, L501.9985 ####[facility] [address] [place], [address] PT Coag (PPP) [Time] 15.0 s High 11.7-14.9 [facility] Comment on above: Performed By: #### L 500.4050, L501.2300, L100.0100, L300.3900, L501.9520, L501.5200, L501.9985 ####[facility] [address] [place], [address] Surgery Specimen Level George 07-03-2024 Surgery Specimen Level IV Normal [facility] Comment on above: Performed By: #### P SUIV ####[facility] [address] [place], [address] Thyroid Stim Hormone (TSH)on 07-03-2024 TSH 0.632 uIU/mL Normal 0.358-3.740 [facility] Comment on above: Performed By: #### L 500.4050, L501.2300, L100.0100, L300.3900, L501.9520, L501.5200, L501.9985 ####[facility] [address] [place], [address] Vimentin (initial)on 024 Vimentin (initial) Normal [facility] Comment on above: Performed By: #### P VIM ####[facility] [address] [place], [address] BRCon 07-02-2024 RC Normal [facility] Comment on above: Result Comment: [id number] OP RC NOT [id number] OP RC TRANSFUSED 07/02/24 2100 Performed By: #### B , [facility] ####[facility] [address] [place], [address] Basic Metabolic Profile (BMP )on 07-02-2024 BUN/CRE 10.7 RATIO Normal 10-20 [facility] Comment on above: Performed By: #### M 100.7900, L100.0500, L500.2500 ####[facility] [address] [place], [address] CA,Total 7.1 mg/dL Low 8.5-10.1 [facility] Comment on above: Performed By: #### M 100.7900, L100.0500, L500.2500 ####[facility] [address] [place], [address] Chloride [Moles/Vol] 107 mmol/L Normal 98-107 [facility] Comment on above: Performed By: #### M 100.7900, L100.0500, L500.2500 ####[facility] [address] [place], [address] CO2 [Moles/Vol] 16.0 mmol/L Low 21.0-32.0 [facility] Comment on above: Performed By: #### M 100.7900, L100.0500, L500.2500 ####[facility] [address] [place], [address] Creatinine [Mass/Vol] 8.49 mg/dL Invalid Interpretation Code 0.70-1.30 [facility] Comment on above: Result Comment: Crit ical Result(s) Called at: 18:38:50 07/02/2024 by:Kate Buck to Amber. Results read back bysame.The validity of the calculated GFR GFRAA in patients over70 years has not been determined. Clinical correlation isessential. Performed By: #### M 100.7900, L100.0500, L500.2500 ####[facility] [address] [place], [address] ECRCL 10.92 ml/min Normal [facility] Comment on above: Performed By: #### M 100.7900, L100.0500, L500.2500 ####[facility] [address] [place], [address] EST GFR - AA 8 mL/min Low >60 [facility] Comment on above: Result Comment: Afri can Angolan GFR Calc Performed By: #### M 100.7900, L100.0500, L500.2500 ####[facility] [address] [place], [address] GAP 10 Normal 5-15 [facility] Comment on above: Performed By: #### M 100.7900, L100.0500, L500.2500 ####[facility] [address] [place], [address] GFR/1.73 sq M.predicted among non-blacks MDRD (S/P/Bld) [Vol rate/Area] 7 mL/min/{1.73_m2} Low >60 [facility] Comment on above: Result Comment: Non- GFR Calc Performed By: #### M 100.7900, L100.0500, L500.2500 ####[facility] [address] [place], [address] Glucose [Mass/Vol] 220 mg/dL High 74-106 [facility] Comment on above: Result Comment: Gluc ose result greater than or equal to 200 mg/dLsuggests DIABETES MELLITUS per A.D.A. criteria. Performed By: #### M 100.7900, L100.0500, L500.2500 ####[facility] [address] [place], [address] Potassium [Moles/Vol] 5.4 mmol/L High 3.5-5.1 [facility] Comment on above: Performed By: #### M 100.7900, L100.0500, L500.2500 ####[facility] [address] [place], [address] Sodium [Moles/Vol] 133 mmol/L Low 136-145 [facility] Comment on above: Performed By: #### M 100.7900, L100.0500, L500.2500 ####[facility] [address] [place], [address] Urea nitrogen [Mass/Vol] 91 mg/dL High 7-18 [facility] Comment on above: Performed By: #### M 100.7900, L100.0500, L500.2500 ####[facility] [address] [place], [address] CBC-Complete Blood Cnt No Di ffon 07-02-2024 Erythrocyte distribution width (RBC) [Ratio] 13.5 % Normal 11.6-14.6 [facility] Comment on above: Performed By: #### M 100.7900, L100.0500, L500.2500 ####[facility] [address] [place], [address] Hematocrit (Bld) [Volume fraction] 20.9 % Low 40-54 [facility] Comment on above: Performed By: #### M 100.7900, L100.0500, L500.2500 ####[facility] [address] [place], [address] Hemoglobin (Bld) [Mass/Vol] 6.9 g/dL Low 13.0-16.5 [facility] Comment on above: Performed By: #### M 100.7900, L100.0500, L500.2500 ####[facility] [address] [place], [address] MCH (RBC) [Entitic mass] 30.3 pg Normal 27.0-32.0 [facility] Comment on above: Performed By: #### M 100.7900, L100.0500, L500.2500 ####[facility] [address] [place], [address] MCHC (RBC) [Mass/Vol] 33.0 g/dL Normal 32-36 [facility] Comment on above: Performed By: #### M 100.7900, L100.0500, L500.2500 ####[facility] [address] [place], [address] MCV (RBC) [Entitic vol] 91.7 fL Normal 80-94 [facility] Comment on above: Performed By: #### M 100.7900, L100.0500, L500.2500 ####[facility] [address] [place], [address] Platelet mean volume (Bld) [Entitic vol] 10.5 fL Normal 6.2-12.0 [facility] Comment on above: Performed By: #### M 100.7900, L100.0500, L500.2500 ####[facility] [address] [place], [address] Platelets (Bld) [#/Vol] 158 10*3/uL Normal 150-450 [facility] Comment on above: Performed By: #### M 100.7900, L100.0500, L500.2500 ####[facility] [address] [place], [address] RBC (Bld) [#/Vol] 2.28 10*6/uL Low 4.6-6.2 [facility] Comment on above: Performed By: #### M 100.7900, L100.0500, L500.2500 ####[facility] [address] [place], [address] RDW SD 45.3 fl High 35.1-43.9 [facility] Comment on above: Performed By: #### M 100.7900, L100.0500, L500.2500 ####[facility] [address] [place], [address] WBC (Bld) [#/Vol] 5.0 10*3/uL Normal 4.4-11.0 [facility] Comment on above: Performed By: #### M 100.7900, L100.0500, L500.2500 ####[facility] [address] [place], [address] Emergency Department Summary on 07-02-2024 Emergency Department Summary Normal [facility] Ferritinon 07-02-2024 Ferritin [Mass/Vol] 289 ng/mL Normal 26-388 [facility] Comment on above: Order Comment: Has P atient had X-rays with Contrast this admission? NN Performed By: #### L 503.6550, L503.0105, L503.6030, L506.0250 ####[facility] [address] [place], [address] Folates, (Folic Acid)on FOLATES 4.70 ng/mL Normal 3.1-55.4 [facility] Comment on above: Order Comment: Has P atient had X-rays with Contrast this admission? NN Performed By: #### L 503.6550, L503.0105, L503.6030, L506.0250 ####[facility] [address] [place], [address] H AND P Exam - Hospitaliston 07-02-2024 H&P Exam - Hospitalist Normal [facility] Iron+Iron Binding Capacityon 07-02-2024 Iron [Mass/Vol] 192 ug/dL High 65-175 [facility] Comment on above: Order Comment: Has Bob mari had X-rays with Contrast this admission? NN Performed By: #### L 503.6550, L503.0105, L503.6030, L506.0250 ####[facility] [address] [place], [address] IRON SATURATION 102.1 High 15.0-55.0 [facility] Comment on above: Order Comment: Has Bob mari had X-rays with Contrast this admission? NN Performed By: #### L 503.6550, L503.0105, L503.6030, L506.0250 ####[facility] [address] [place], [address] TIBC 188 ug/dL Low 250-450 [facility] Comment on above: Order Comment: Has Bob mari had X-rays with Contrast this admission? NN Performed By: #### L 503.6550, L503.0105, L503.6030, L506.0250 ####[facility] [address] [place], [address] MR/CON.PCM.GIon 07-02-2024 MR/CON.PCM.GI Normal [facility] Stool Occult Blood iFOBon STOB Normal [facility] Comment on above: Performed By: #### M 100.7900, L100.0500, L500.2500 ####[facility] [address] [place], [address] Type AND Screenon 07-02-2024 ABO and Rh group Nom (Bld) Blood group O Rh(D) positive Normal [facility] Comment on above: Order Comment: CMV N EG? NNumber of units to transfuse: 2Is pt's HR > 100 bpm? NReason for Ordering Blood: AcuteAre the blood/blood products to be transfused? YIs the patient having/had surgery? NWantonio Serrano Performed By: #### B TS, BRC ####[facility] [address] [place], [address] Vitamin B12on 07-02-2024 Cobalamin (Vitamin B12) [Mass/Vol] 381 pg/mL Normal 211-911 [facility] Comment on above: Performed By: #### L 503.6550, L503.0105, L503.6030, L506.0250 ####[facility] [address] [place], [address] Calprotectin stoolOrdered By : Jimmie Ibarra on 06-26-2024 Calprotectin stool 71 ug/g 0-120 [facility] Comment on above: Concentration Interp retation Follow-Up< 5 - 50 ug/g Normal None>50 -120 ug/g Borderline Re-evaluate in 4-6 weeks >120 ug/g Abnormal Repeat as clinically indicatedPerformed at: [facility] [id number] Director: Opal Arnold MD, Phone: [phone] Clostridium difficile detect ion by polymerase chain reactionOrdered By: Jimmie Ibarra on 06-26-2024 C. difficile DNA RAYMOND+probe Ql (Unsp spec) [facility] C. difficile DNA RAYMOND+probe Ql (Unsp spec) [facility] Stool gastrointestinal hemog lobin detection by immunologic methodOrdered By: Jimmie Ibarra on 06-26-2024 Lower GI hemoglobin IA Ql (Stl) Positive Abnormal [facility] Lower GI hemoglobin IA Ql (Stl) Positive Abnormal [facility] Stool lactoferrin detection by immunoassayOrdered By: Jimmie Ibarra on 06-26-2024 Lactoferrin IA Ql (Stl) [facility] Lactoferrin IA Ql (Stl) [facility] No Panel InformationOrdered By: Radha Kelley on 06-12-2024 Vitamin D 25-Hydroxy 7.3 ng/mL Low 30.0-100.0 [facility] Comment on above: Vitamin D deficiency has been defined by the [place] of[employer] and an Endocrine Society practice guideline as alevel of serum 25-OH vitamin D less than 20 ng/mL (1,2).The Endocrine Society went on to further define vitamin Dinsufficiency as a level between 21 and 29 ng/mL (2).1. IOM ([place] of [employer]). 2010. Dietary reference intakes for calcium and D. [place]: The National Academies Press.2. Jin MF, Uli MORFIN, Kelly DUMAS, et al. Evaluation, treatment, and prevention of vitamin D deficiency: an Endocrine Society clinical practice guideline. JCEM. 2010; 96(7):1911-30.Performed at: [facility] [id number] Director: Bradley Peña PhD, Phone: [phone] CBCDIF (EXTERNAL)Ordered By: Buffy Farris on 06-06-2024 BASO ABS [facility] Basophils/100 WBC (Bld) 0.6 % 0 - 1.5 % [facility] EOS ABS [facility] Eosinophils/100 WBC (Bld) 2.0 % 1 - 3 % [facility] Hematocrit (Bld) [Volume fraction] 21.5 % Abnormal 39 - 55 % [facility] Hemoglobin (Bld) [Mass/Vol] 7.2 g/dL Abnormal 14 - 16.5 g/dL [facility] Interpretation and review of laboratory results Abnormal [facility] Lymphocytes (Bld) [#/Vol] 1.58 10*3/uL 1.2 - 4 K/uL [facility] Lymphocytes/100 WBC (Bld) 30.9 % Abnormal 20 - 30 % [facility] MCH (RBC) [Entitic mass] 30.9 pg 25.4 - 34.6 pg [facility] MCHC (RBC) [Mass/Vol] 33.5 g/dL 30 - 36 g/dL [facility] MCV (RBC) [Entitic vol] 92.3 fL 79 - 98 fL [facility] MONO ABS [facility] Monocytes/100 WBC (Bld) 5.5 % 2 - 8 % [facility] NEUT ABS 3.1 K/uL 1.9 - 8 K/uL [facility] Neutrophils/100 WBC (Bld) 60.4 % 40 - 74 % [facility] Platelet mean volume (Bld) [Entitic vol] 9.7 fL 7.4 - 10.4 fL [facility] Platelets (Bld) [#/Vol] 164 10*3/uL 140 - 440 K/uL [facility] RBC (Bld) [#/Vol] 2.33 10*6/uL Abnormal [facility] RDW [facility] WBC (Bld) [#/Vol] 5.1 10*3/uL 3.9 - 11 K/uL [facility] Serum or plasma carcinoembry onic antigen measurement (mass/volume)Ordered By: Maureen Campbell on 05-29-2024 Carcinoembryonic Ag [Mass/Vol] 2.1 ng/mL [facility] Absolute lymphocyte countOrd ered By: Fransisco Lawson on 12-18-2023 Lymphocytes Auto (Unsp spec) [#/Vol] 1.23 10*3/uL 0.83-4.51 [facility] Automated lymphocyte count a s percentage of total leukocytesOrdered By: Fransisco Lawson on 12-18-2023 Lymphocytes/100 WBC Auto (Unsp spec) 23.1 % 19-41 [facility] Basophil percentageOrdered B y: Fransisco Lawsno on 12-18-2023 Basophils/100 WBC (Bld) 0.6 % 0-1 [facility] Chloride [Moles/Vol] 112 mmol/L 98-107 [facility] Eosinophils/100 WBC (Bld) 2.6 % 0-5 [facility] Glucose [Mass/Vol] 184 mg/dL 74-106 [facility] Comment on above: Fasting Glucose resu lt greater than or equal to 126 mg/dL suggests DIABETES MELLITUS per A.D.A. criteria. Hemoglobin (Bld) [Mass/Vol] 8.3 g/dL 13.0-16.5 [facility] Monocytes/100 WBC (Bld) 6.2 % 0-10 [facility] Neutrophils (Bld) [#/Vol] 3.6 10*3/uL 2.0-7.7 [facility] Neutrophils/100 WBC (Bld) 66.9 % 47-70 [facility] Potassium [Moles/Vol] 5.3 mmol/L 3.5-5.1 [facility] Sodium [Moles/Vol] 138 mmol/L 136-145 [facility] WBC (Bld) [#/Vol] 5.3 10*3/uL 4.4-11.0 [facility] Determination of erythrocyte mean corpuscular volume (MCV)Ordered By: Fransisco Lawson on 12-18-2023 MCV (RBC) [Entitic vol] 88.1 fL 80-94 [facility] Erythrocyte distribution wid th ratioOrdered By: Fransisco Lawson on 12-18-2023 Erythrocyte distribution width (RBC) [Ratio] 13.2 % 11.6-14.6 [facility] Erythrocyte distribution wid th standard deviationOrdered By: Fransisco Lawson on 12-18-2023 Erythrocyte distribution width (RBC) [Entitic vol] 42.4 fL 35.1-43.9 [facility] Hematocrit Auto (Bld) [Volum e fraction]Ordered By: Fransisco Lawson on 12-18-2023 Hematocrit (Bld) [Volume fraction] 24.4 % 40-54 [facility] Immature granulocytes/100 WB C Auto (Bld)Ordered By: Fransisco Lawson on 12-18-2023 Immature granulocytes/100 WBC (Bld) 0.600 % 0.0-0.9 [facility] Comment on above: IG% - Immature Granu locytes (promyelocytes, myelocytes and metamyelocytes) > 1% indicates that a LEFT SHIFT is Present. Laboratory - Chemistry and C hemistry - challengeOrdered By: Fransisco Lawson on 12-18-2023 CO2 [Moles/Vol] 22.0 mmol/L 21.0-32.0 [facility] Urea nitrogen/Creatinine [Mass ratio] 8.5 mg/mg 10-20 [facility] Laboratory - Hematology and Cell countsOrdered By: Fransisco Lawson on 12-18-2023 MCH (RBC) [Entitic mass] 30.0 pg 27.0-32.0 [facility] MCHC (RBC) [Mass/Vol] 34.0 g/dL 32-36 [facility] Nucleated RBC/100 WBC (Bld) [Ratio] 0 % 0-5 [facility] Platelet mean volume (Bld) [Entitic vol] 9.9 fL 6.2-12.0 [facility] Platelets (Bld) [#/Vol] 183 10*3/uL 150-450 [facility] No Panel InformationOrdered By: Fransisco Lawson on 12-18-2023 Estimated Creatinine Clearance Calc 23.14 ml/min [facility] Estimated GFR (MDRD) Amer 20 mL/min >60 [facility] Comment on above: GFR Calc Estimated GFR (MDRD) Non-Af Amer 17 mL/min >60 [facility] Comment on above: Non- GFR Calc RBC Auto (Bld) [#/Vol]Ordere d By: Fransisco Lawson on 12-18-2023 RBC (Bld) [#/Vol] 2.77 10*6/uL 4.6-6.2 [facility] Serum or plasma calcium abhi urement (mass/volume)Ordered By: Fransisco Lawson on 12-18-2023 Calcium [Mass/Vol] 7.7 mg/dL 8.5-10.1 [facility] Serum or plasma creatinine m easurement (mass/volume)Ordered By: Fransisco Lawson on 12-18-2023 Creatinine [Mass/Vol] 4.00 mg/dL 0.70-1.30 [facility] Comment on above: The validity of the calculated GFR & GFRAA in patients over 70 years has not been determined. Clinical correlation is essential. Serum or plasma urea nitroge n measurement (mass/volume)Ordered By: Fransisco Lawson on 12-18-2023 Urea nitrogen [Mass/Vol] 34 mg/dL 7-18 [facility] Thin prep Papanicolaou smear with manual screeningOrdered By: Fransisco Lawson on 12-18-2023 Thin prep Papanicolaou smear with manual screening 4 5-15 [facility] Basophil percentageOrdered B y: Juana Harvey on 12-09-2023 Basophil percentage 4.4 mg/dL 2.5-4.9 [facility] Chloride [Moles/Vol] 115 mmol/L 98-107 [facility] Glucose [Mass/Vol] 114 mg/dL 74-106 [facility] Comment on above: Fasting Glucose resu lt from 100 to 125 mg/dL suggests IMPAIRED HOMEOSTASIS per A.D.A. criteria. Potassium [Moles/Vol] 4.5 mmol/L 3.5-5.1 [facility] Sodium [Moles/Vol] 140 mmol/L 136-145 [facility] Laboratory - Chemistry and C hemistry - challengeOrdered By: Juana Harvey on 12-09-2023 CO2 [Moles/Vol] 19.0 mmol/L 21.0-32.0 [facility] Urea nitrogen/Creatinine [Mass ratio] 9.0 mg/mg 10-20 [facility] No Panel InformationOrdered By: Juana Harvey on 12-09-2023 Estimated Creatinine Clearance Calc 23.51 ml/min [facility] Estimated GFR (MDRD) Amer 21 mL/min >60 [facility] Comment on above: GFR Calc Estimated GFR (MDRD) Non-Af Amer 17 mL/min >60 [facility] Comment on above: Non- GFR Calc Serum or plasma calcium abhi urement (mass/volume)Ordered By: Juana Harvey on 12-09-2023 Calcium [Mass/Vol] 7.9 mg/dL 8.5-10.1 [facility] Serum or plasma creatinine m easurement (mass/volume)Ordered By: Juana Harvey on 12-09-2023 Creatinine [Mass/Vol] 3.89 mg/dL 0.70-1.30 [facility] Comment on above: The validity of the calculated GFR & GFRAA in patients over 70 years has not been determined. Clinical correlation is essential. Serum or plasma urea nitroge n measurement (mass/volume)Ordered By: Juana Harvey on 12-09-2023 Urea nitrogen [Mass/Vol] 35 mg/dL 7-18 [facility] Thin prep Papanicolaou smear with manual screeningOrdered By: Alfredo Ag on 12-09-2023 Thin prep Papanicolaou smear with manual screening 85 mg/dL 74-106 [facility] Comment on above: MANAGEMENT OF PATIEN T CARE PER NURSING PROTOCOL Thin prep Papanicolaou smear with manual screeningOrdered By: Juana Harvey on 12-09-2023 Thin prep Papanicolaou smear with manual screening 2.2 g/dL 3.2-5.0 [facility] Absolute lymphocyte countOrd ered By: Landry James on 12-08-2023 Lymphocytes Auto (Unsp spec) [#/Vol] 1.40 10*3/uL 0.83-4.51 [facility] Automated lymphocyte count a s percentage of total leukocytesOrdered By: Landry James on 12-08-2023 Lymphocytes/100 WBC Auto (Unsp spec) 25.6 % 19-41 [facility] Basophil percentageOrdered B y: Juana Harvey on 12-08-2023 Basophil percentage 0-5 SEEN /hpf 0-5 [facility] Basophil percentageOrdered B y: Landry James on 12-08-2023 Basophils/100 WBC (Bld) 0.4 % 0-1 [facility] Bilirubin [Mass/Vol] 0.20 mg/dL 0.20-1.00 [facility] Comment on above: For patients on eltr ombopag therapy, use of Dimension [place] TBIL is not recommended. Cholesterol [Mass/Vol] 225 mg/dL <200 [facility] Comment on above: <200 mg/dL Desirable 200-240 mg/dL Borderline >240 mg/dL High Risk Eosinophils/100 WBC (Bld) 1.1 % 0-5 [facility] Hemoglobin (Bld) [Mass/Vol] 8.8 g/dL 13.0-16.5 [facility] Monocytes/100 WBC (Bld) 3.7 % 0-10 [facility] Neutrophils (Bld) [#/Vol] 3.7 10*3/uL 2.0-7.7 [facility] Neutrophils/100 WBC (Bld) 68.3 % 47-70 [facility] Protein [Mass/Vol] 5.9 g/dL 6.4-8.2 [facility] Triglyceride [Mass/Vol] 439 mg/dL <199 [facility] Comment on above: The drugs N-Acetylcy steine and Metamizole may falsely depress this assay. TRIGLYCERIDE IS GREATER THAN 400 mg/dL. LDL RESULT IS INVALID AND WILL NOT BE REPORTED.Serum Triglycerides Reference Interval Normal <150 mg/dL Borderline high 150 - 199 mg/dL High 200 - 499 mg/dL Very High > or = 500 mg/dL WBC (Bld) [#/Vol] 5.5 10*3/uL 4.4-11.0 [facility] Bilirubin Test strip Ql (U)O rdered By: Juana Hravey on 12-08-2023 Bilirubin Ql (U) Negative Negative [facility] Determination of erythrocyte mean corpuscular volume (MCV)Ordered By: Landry James on 12-08-2023 MCV (RBC) [Entitic vol] 89.4 fL 80-94 [facility] Erythrocyte distribution wid th ratioOrdered By: Landry James on 12-08-2023 Erythrocyte distribution width (RBC) [Ratio] 13.7 % 11.6-14.6 [facility] Erythrocyte distribution wid th standard deviationOrdered By: Landyr James on 12-08-2023 Erythrocyte distribution width (RBC) [Entitic vol] 44.6 fL 35.1-43.9 [facility] Hematocrit Auto (Bld) [Volum e fraction]Ordered By: Landry James on 12-08-2023 Hematocrit (Bld) [Volume fraction] 26.1 % 40-54 [facility] Immature granulocytes/100 WB C Auto (Bld)Ordered By: Landry James on 12-08-2023 Immature granulocytes/100 WBC (Bld) 0.900 % 0.0-0.9 [facility] Comment on above: IG% - Immature Granu locytes (promyelocytes, myelocytes and metamyelocytes) > 1% indicates that a LEFT SHIFT is Present. Ketones Test strip Ql (U)Ord ered By: uJana Harvey on 12-08-2023 Ketones Ql (U) Negative Negative [facility] Laboratory - Chemistry and C hemistry - challengeOrdered By: Landry James on 12-08-2023 Albumin/Globulin [Mass ratio] 0.6 {ratio} 0.9-2.4 [facility] ALP [Catalytic activity/Vol] 75 U/L 45-117 [facility] ALT [Catalytic activity/Vol] 10 U/L 16-61 [facility] Cholesterol in HDL [Mass/Vol] 37 mg/dL >40 [facility] Comment on above: The drugs N-Acetylcy steine and Metamizole may falsely depress this assay. Reference Range HDL <40 mg/dL Low HDL Cholesterol HDL >or= 60 mg/dL High HDL Cholesterol Globulin (S) [Mass/Vol] 3.6 g/dL 2.2-4.2 [facility] Magnesium [Mass/Vol] 1.5 mg/dL 1.6-2.6 [facility] Laboratory - Hematology and Cell countsOrdered By: Landry James on 12-08-2023 MCH (RBC) [Entitic mass] 30.1 pg 27.0-32.0 [facility] MCHC (RBC) [Mass/Vol] 33.7 g/dL 32-36 [facility] Nucleated RBC/100 WBC (Bld) [Ratio] 0 % 0-5 [facility] Platelet mean volume (Bld) [Entitic vol] 10.0 fL 6.2-12.0 [facility] Platelets (Bld) [#/Vol] 176 10*3/uL 150-450 [facility] Mucus LM Ql (Urine sed)Order ed By: Juana Harvey on 12-08-2023 Mucus Ql (Urine sed) 0 SEEN /hpf [facility] Nitrite Test strip Ql (U)Ord ered By: Juana Harvey on 12-08-2023 Nitrite Ql (U) Negative Negative [facility] No Panel InformationOrdered By: Juana Harvey on 12-08-2023 Urine RBC 0-5 SEEN /hpf 0-5 [facility] No Panel InformationOrdered By: Landry James on 12-08-2023 LDL Cholesterol [facility] Comment on above: Test not performed VLDL Cholesterol [facility] Comment on above: Test not performed Protein Test strip Ql (U)Ord ered By: Juana Harvey on 12-08-2023 Protein Ql (U) 500 mg/dl Negative [facility] RBC Auto (Bld) [#/Vol]Ordere d By: Landry James on 12-08-2023 RBC (Bld) [#/Vol] 2.92 10*6/uL 4.6-6.2 [facility] Serum or plasma thyroid stim ulating hormone (TSH) measurement (units/volume)Ordered By: Landry James on 12-08-2023 TSH Qn 0.34 uIU/mL 0.358-3.74 [facility] Squamous epithelial cells de tection in urine sediment by light microscopyOrdered By: Juana Harvey on 12-08-2023 Epithelial cells.squamous LM Ql (Urine sed) 0 SEEN /hpf 0-5 [facility] Thin prep Papanicolaou smear with manual screeningOrdered By: Landry James on 12-08-2023 Thin prep Papanicolaou smear with manual screening 8 U/L 15-37 [facility] Thin prep Papanicolaou smear with manual screening 5 5-15 [facility] Urine blood detectionOrdered By: Juana Harvey on 12-08-2023 RBC Ql (U) 10 /ul Negative [facility] Urine clarityOrdered By: Josh Harvey on 12-08-2023 Clarity (U) Clear Clear [facility] Urine color determinationOrd ered By: Juana Harvey on 12-08-2023 Color (U) Yellow Yellow [facility] Urine glucose detectionOrder ed By: Juana Harvey on 12-08-2023 Glucose Ql (U) 50 mg/dl Normal [facility] Urine leukocyte esterase det ection by dipstickOrdered By: Juana Harvey on 12-08-2023 Leukocyte esterase Test strip Ql (U) Negative Negative [facility] Urine pHOrdered By: Juana Harvey on 12-08-2023 pH (U) 6.0 [pH] 5.0 - 8.0 [facility] Urine sediment bacteria coun t by microscopy (number/high power field)Ordered By: Juana Harvey on 12-08-2023 Bacteria LM.HPF (Urine sed) [#/Area] 0 /[HPF] None Seen [facility] Urine specific gravity measu rementOrdered By: Juana Harvey on 12-08-2023 Specific gravity (U) [Rel density] 1.015 1.002-1.030 [facility] Urine urobilinogen measureme ntOrdered By: Juana Harvey on 12-08-2023 Urobilinogen Ql (U) Normal mg/dl Normal [facility] Whole blood hemoglobin A1c/t otal hemoglobin ratio (mass fraction)Ordered By: Landry James on 12-08-2023 HbA1c (Bld) [Mass fraction] 7.3 % 3.8-5.6 [facility] Comment on above: Normal < 5.7 % Predi abetic 5.7 - 6.4 % Diabetic >or= 6.5 % Please note range changes. Absolute lymphocyte countOrd ered By: Fransisco Lawson on 12-07-2023 Lymphocytes Auto (Unsp spec) [#/Vol] 1.63 10*3/uL 0.83-4.51 [facility] Automated lymphocyte count a s percentage of total leukocytesOrdered By: Fransisco Lawson on 12-07-2023 Lymphocytes/100 WBC Auto (Unsp spec) 31.0 % 19-41 [facility] Basophil percentageOrdered B y: Fransisco Lawson on 12-07-2023 Basophils/100 WBC (Bld) 0.6 % 0-1 [facility] Chloride [Moles/Vol] 113 mmol/L 98-107 [facility] Eosinophils/100 WBC (Bld) 1.3 % 0-5 [facility] Glucose [Mass/Vol] 186 mg/dL 74-106 [facility] Comment on above: Fasting Glucose resu lt greater than or equal to 126 mg/dL suggests DIABETES MELLITUS per A.D.A. criteria. Hemoglobin (Bld) [Mass/Vol] 8.6 g/dL 13.0-16.5 [facility] Monocytes/100 WBC (Bld) 5.3 % 0-10 [facility] Neutrophils (Bld) [#/Vol] 3.2 10*3/uL 2.0-7.7 [facility] Neutrophils/100 WBC (Bld) 61.2 % 47-70 [facility] Potassium [Moles/Vol] 4.7 mmol/L 3.5-5.1 [facility] Sodium [Moles/Vol] 136 mmol/L 136-145 [facility] WBC (Bld) [#/Vol] 5.3 10*3/uL 4.4-11.0 [facility] Basophil percentageOrdered B y: Grisel Timmons on 12-07-2023 Bilirubin [Mass/Vol] 0.20 mg/dL 0.20-1.00 [facility] Comment on above: For patients on eltr ombopag therapy, use of Dimension [place] TBIL is not recommended. Chloride [Moles/Vol] 111 mmol/L 98-107 [facility] Glucose [Mass/Vol] 198 mg/dL 74-106 [facility] Comment on above: Fasting Glucose resu lt greater than or equal to 126 mg/dL suggests DIABETES MELLITUS per A.D.A. criteria. Potassium [Moles/Vol] 5.7 mmol/L 3.5-5.1 [facility] Protein [Mass/Vol] 6.8 g/dL 6.4-8.2 [facility] Sodium [Moles/Vol] 137 mmol/L 136-145 [facility] Determination of erythrocyte mean corpuscular volume (MCV)Ordered By: Fransisco Lawson on 12-07-2023 MCV (RBC) [Entitic vol] 89.4 fL 80-94 [facility] Erythrocyte distribution wid th ratioOrdered By: Fransisco Lawson on 12-07-2023 Erythrocyte distribution width (RBC) [Ratio] 13.5 % 11.6-14.6 [facility] Erythrocyte distribution wid th standard deviationOrdered By: Fransisco Lawson on 12-07-2023 Erythrocyte distribution width (RBC) [Entitic vol] 43.9 fL 35.1-43.9 [facility] Hematocrit Auto (Bld) [Volum e fraction]Ordered By: Fransisco Lawson on 12-07-2023 Hematocrit (Bld) [Volume fraction] 25.2 % 40-54 [facility] Immature granulocytes/100 WB C Auto (Bld)Ordered By: Fransisco Lawson on 12-07-2023 Immature granulocytes/100 WBC (Bld) 0.600 % 0.0-0.9 [facility] Comment on above: IG% - Immature Granu locytes (promyelocytes, myelocytes and metamyelocytes) > 1% indicates that a LEFT SHIFT is Present. Laboratory - Chemistry and C hemistry - challengeOrdered By: Fransisco Lawson on 12-07-2023 CO2 [Moles/Vol] 20.0 mmol/L 21.0-32.0 [facility] Urea nitrogen/Creatinine [Mass ratio] 8.9 mg/mg 10- [facility] Laboratory - Chemistry and C hemistry - challengeOrdered By: Grisel Timmons on 12-07-2023 Albumin/Globulin [Mass ratio] 0.7 {ratio} 0.9-2.4 [facility] ALP [Catalytic activity/Vol] 87 U/L 45-117 [facility] ALT [Catalytic activity/Vol] 11 U/L 16-61 [facility] CO2 [Moles/Vol] 23.0 mmol/L 21.0-32.0 [facility] Globulin (S) [Mass/Vol] 4.1 g/dL 2.2-4.2 [facility] Urea nitrogen/Creatinine [Mass ratio] 8.5 mg/mg 10-20 [facility] Laboratory - Hematology and Cell countsOrdered By: Fransisco Lawson on 12-07-2023 MCH (RBC) [Entitic mass] 30.5 pg 27.0-32.0 [facility] MCHC (RBC) [Mass/Vol] 34.1 g/dL 32-36 [facility] Nucleated RBC/100 WBC (Bld) [Ratio] 0 % 0-5 [facility] Platelet mean volume (Bld) [Entitic vol] 10.5 fL 6.2-12.0 [facility] Platelets (Bld) [#/Vol] 202 10*3/uL 150-450 [facility] Laboratory - Hematology and Cell countson 12-07-2023 HbA1c (Bld) [Mass fraction] 7.5 % 4.2-6.3 [facility] No Panel InformationOrdered By: Fransisco Lawson on 12-07-2023 Estimated Creatinine Clearance Calc 21.05 ml/min [facility] Estimated GFR (MDRD) Amer 18 mL/min >60 [facility] Comment on above: GFR Calc Estimated GFR (MDRD) Non-Af Amer 15 mL/min >60 [facility] Comment on above: Non- GFR Calc No Panel InformationOrdered By: Grisel Timmons on 12-07-2023 Estimated GFR (MDRD) Amer 17 mL/min >60 [facility] Comment on above: GFR Calc Estimated GFR (MDRD) Non-Af Amer 14 mL/min >60 [facility] Comment on above: Non- GFR Calc RBC Auto (Bld) [#/Vol]Ordere d By: Fransisco Lawson on 12-07-2023 RBC (Bld) [#/Vol] 2.82 10*6/uL 4.6-6.2 [facility] Serum or plasma calcium abhi urement (mass/volume)Ordered By: Fransisco Lawson on 12-07-2023 Calcium [Mass/Vol] 7.7 mg/dL 8.5-10.1 [facility] Serum or plasma calcium abhi urement (mass/volume)Ordered By: Grisel Timmons on 12-07-2023 Calcium [Mass/Vol] 8.9 mg/dL 8.5-10.1 [facility] Serum or plasma creatinine m easurement (mass/volume)Ordered By: Fransisco Lawson on 12-07-2023 Creatinine [Mass/Vol] 4.39 mg/dL 0.70-1.30 [facility] Comment on above: The validity of the calculated GFR & GFRAA in patients over 70 years has not been determined. Clinical correlation is essential. Serum or plasma creatinine m easurement (mass/volume)Ordered By: Grisel Timmons on 12-07-2023 Creatinine [Mass/Vol] 4.57 mg/dL 0.70-1.30 [facility] Comment on above: The validity of the calculated GFR & GFRAA in patients over 70 years has not been determined. Clinical correlation is essential. Serum or plasma urea nitroge n measurement (mass/volume)Ordered By: Fransisco Lawson on 12-07-2023 Urea nitrogen [Mass/Vol] 39 mg/dL 03-14 [facility] Serum or plasma urea nitroge n measurement (mass/volume)Ordered By: Grisel Timmons on 12-07-2023 Urea nitrogen [Mass/Vol] 39 mg/dL 03-14 [facility] Thin prep Papanicolaou smear with manual screeningOrdered By: Fransisco Lawson on 12-07-2023 Thin prep Papanicolaou smear with manual screening 3 - [facility] Thin prep Papanicolaou smear with manual screeningOrdered By: Grisel Timmons on 12-07-2023 Thin prep Papanicolaou smear with manual screening 2.7 g/dL 3.2-5.0 [facility] Thin prep Papanicolaou smear with manual screening 9 U/L 15-37 [facility] Thin prep Papanicolaou smear with manual screening 3 - [facility] Absolute lymphocyte countOrd ered By: Jimmie Ibarra on 11-30-2023 Lymphocytes Auto (Unsp spec) [#/Vol] 1.69 10*3/uL 0.83-4.51 [facility] Automated lymphocyte count a s percentage of total leukocytesOrdered By: Jimmie Ibarra on 11-30-2023 Lymphocytes/100 WBC Auto (Unsp spec) 36.9 % 19-41 [facility] Basophil percentageOrdered B y: Jimmie Ibarra on 11-30-2023 Basophils/100 WBC (Bld) 0.9 % 0-1 [facility] Bilirubin [Mass/Vol] 0.30 mg/dL 0.20-1.00 [facility] Comment on above: For patients on eltr ombopag therapy, use of Dimension [place] TBIL is not recommended. Chloride [Moles/Vol] 111 mmol/L 98-107 [facility] Eosinophils/100 WBC (Bld) 2.2 % 0-5 [facility] Glucose [Mass/Vol] 133 mg/dL 74-106 [facility] Comment on above: Fasting Glucose resu lt greater than or equal to 126 mg/dL suggests DIABETES MELLITUS per A.D.A. criteria. Hemoglobin (Bld) [Mass/Vol] 8.3 g/dL 13.0-16.5 [facility] LDH [Catalytic activity/Vol] 175 U/L 87-241 [facility] Monocytes/100 WBC (Bld) 6.1 % 0-10 [facility] Neutrophils (Bld) [#/Vol] 2.4 10*3/uL 2.0-7.7 [facility] Neutrophils/100 WBC (Bld) 53.0 % 47-70 [facility] Potassium [Moles/Vol] 4.8 mmol/L 3.5-5.1 [facility] Protein [Mass/Vol] 5.9 g/dL 6.4-8.2 [facility] Sodium [Moles/Vol] 137 mmol/L 136-145 [facility] WBC (Bld) [#/Vol] 4.6 10*3/uL 4.4-11.0 [facility] Determination of erythrocyte mean corpuscular volume (MCV)Ordered By: Jimmie Ibarra on 11-30-2023 MCV (RBC) [Entitic vol] 91.4 fL 80-94 [facility] Erythrocyte distribution wid th ratioOrdered By: Jimmie Ibarra on 11-30-2023 Erythrocyte distribution width (RBC) [Ratio] 13.2 % 11.6-14.6 [facility] Erythrocyte distribution wid th standard deviationOrdered By: Jimmie Ibarra on 11-30-2023 Erythrocyte distribution width (RBC) [Entitic vol] 43.7 fL 35.1-43.9 [facility] Hematocrit Auto (Bld) [Volum e fraction]Ordered By: Jimmie Ibarra on 11-30-2023 Hematocrit (Bld) [Volume fraction] 25.5 % 40-54 [facility] Immature granulocytes/100 WB C Auto (Bld)Ordered By: [facility] on 11-30-2023 Immature granulocytes/100 WBC (Bld) 0.900 % 0.0-0.9 [facility] Comment on above: IG% - Immature Granu locytes (promyelocytes, myelocytes and metamyelocytes) > 1% indicates that a LEFT SHIFT is Present. Iron measurement (mass/mass) Ordered By: Jimmie Ibarra on 11-30-2023 Iron (Unsp spec) [Mass/Mass] 81 ug/dL 65-175 [facility] Laboratory - Chemistry and C hemistry - challengeOrdered By: [facility] on 11-30-2023 Albumin/Globulin [Mass ratio] 0.6 {ratio} 0.9-2.4 [facility] ALP [Catalytic activity/Vol] 63 U/L 45-117 [facility] ALT [Catalytic activity/Vol] 11 U/L 16-61 [facility] CO2 [Moles/Vol] 20.0 mmol/L 21.0-32.0 [facility] Ferritin [Mass/Vol] 130 ng/mL 26-388 [facility] Globulin (S) [Mass/Vol] 3.6 g/dL 2.2-4.2 [facility] Urea nitrogen/Creatinine [Mass ratio] 10.5 mg/mg 10-20 [facility] Laboratory - Hematology and Cell countsOrdered By: Jimmie Ibarra on 11-30-2023 MCH (RBC) [Entitic mass] 29.7 pg 27.0-32.0 [facility] MCHC (RBC) [Mass/Vol] 32.5 g/dL 32-36 [facility] Nucleated RBC/100 WBC (Bld) [Ratio] 0 % 0-5 [facility] Platelet mean volume (Bld) [Entitic vol] 10.0 fL 6.2-12.0 [facility] Platelets (Bld) [#/Vol] 160 10*3/uL 150-450 [facility] No Panel InformationOrdered By: Jimmie Ibarra on 11-30-2023 Estimated Creatinine Clearance Calc 21.02 ml/min [facility] Estimated GFR (MDRD) Amer 18 mL/min >60 [facility] Comment on above: GFR Calc Estimated GFR (MDRD) Non-Af Amer 15 mL/min >60 [facility] Comment on above: Non- GFR Calc Total Iron Binding Capacity 254 ug/dL 250-450 [facility] RBC Auto (Bld) [#/Vol]Ordere d By: Jimmie Ibarra on 11-30-2023 RBC (Bld) [#/Vol] 2.79 10*6/uL 4.6-6.2 [facility] Serum or plasma calcium abhi urement (mass/volume)Ordered By: Jimmie Ibarra on 11-30-2023 Calcium [Mass/Vol] 8.1 mg/dL 8.5-10.1 [facility] Serum or plasma creatinine m easurement (mass/volume)Ordered By: Jimmie Ibarra on 11-30-2023 Creatinine [Mass/Vol] 4.40 mg/dL 0.70-1.30 [facility] Comment on above: The validity of the calculated GFR & GFRAA in patients over 70 years has not been determined. Clinical correlation is essential. Serum or plasma iron saturat ion measurement (mass fraction)Ordered By: Jimmie Ibarra on 11-30-2023 Iron saturation [Mass fraction] 31.9 % 15.0-55.0 [facility] Serum or plasma urea nitroge n measurement (mass/volume)Ordered By: Jimmie Ibarra on 11-30-2023 Urea nitrogen [Mass/Vol] 46 mg/dL 7-18 [facility] Thin prep Papanicolaou smear with manual screeningOrdered By: Jimmie Ibarra on 11-30-2023 Thin prep Papanicolaou smear with manual screening 2.3 g/dL 3.2-5.0 [facility] Thin prep Papanicolaou smear with manual screening 6 U/L 15-37 [facility] Thin prep Papanicolaou smear with manual screening 6 5-15 [facility] Vitamin B12 measurementOrder ed By: Jimmie Ibarra on 11-30-2023 Cobalamin (Vitamin B12) [Mass/Vol] 324 pg/mL 211-911 [facility] Laboratory - Microbiology an d Antimicrobial susceptibilityOrdered By: Breanna Friedman on 10-16-2023 SARS-CoV-2 (COVID-19) RNA RAYMOND+probe Ql (Unsp spec) Influenzae A [facility] SARS-CoV-2 (COVID-19) RNA RAYMOND+probe Ql (Unsp spec) Influenzae A [facility] Basophil percentageOrdered B y: Jamaal Rm on 08-08-2023 Basophil percentage 4.3 mg/dL 2.5-4.9 [facility] Chloride [Moles/Vol] 107 mmol/L 98-107 [facility] Glucose [Mass/Vol] 216 mg/dL 74-106 [facility] Comment on above: Glucose result great er than or equal to 200 mg/dLsuggests DIABETES MELLITUS per A.D.A. criteria. Potassium [Moles/Vol] 4.0 mmol/L 3.5-5.1 [facility] Sodium [Moles/Vol] 135 mmol/L 136-145 [facility] WBC (Bld) [#/Vol] 6.4 10*3/uL 4.4-11.0 [facility] Blood erythrocytes count (nu mber/volume)Ordered By: Jamaal Rm on 08-08-2023 RBC (Bld) [#/Vol] 3.19 10*6/uL 4.6-6.2 [facility] Blood hemoglobin measurement (mass/volume)Ordered By: Jamaal Rm on 08-08-2023 Hemoglobin (Bld) [Mass/Vol] 9.9 g/dL 13.0-16.5 [facility] Blood platelet mean volumeOr dered By: Jamaal Rm on 08-08-2023 Platelet mean volume (Bld) [Entitic vol] 9.8 fL 6.2-12.0 [facility] Determination of erythrocyte mean corpuscular volume (MCV)Ordered By: Jamaal Rm on 08-08-2023 MCV (RBC) [Entitic vol] 89.0 fL 80-94 [facility] Hematocrit Auto (Bld) [Volum e fraction]Ordered By: Jamaal Rm on 08-08-2023 Hematocrit (Bld) [Volume fraction] 28.4 % 40-54 [facility] Laboratory - Chemistry and C hemistry - challengeOrdered By: Jamaal Rm on 08-08-2023 CO2 [Moles/Vol] 25.0 mmol/L 21.0-32.0 [facility] Urea nitrogen/Creatinine [Mass ratio] 10.8 mg/mg 10-20 [facility] Laboratory - Hematology and Cell countsOrdered By: Jamaal Rm on 08-08-2023 Erythrocyte distribution width (RBC) [Entitic vol] 43.8 fL 35.1-43.9 [facility] Erythrocyte distribution width (RBC) [Ratio] 13.5 % 11.6-14.6 [facility] MCH (RBC) [Entitic mass] 31.0 pg 27.0-32.0 [facility] MCHC Auto (RBC) [Mass/Vol]Or dered By: Jamaal Rm on 08-08-2023 MCHC (RBC) [Mass/Vol] 34.9 g/dL 32-36 [facility] No Panel InformationOrdered By: Robb Paulson on 08-08-2023 Carbamazepine (Tegretol) Level 11.8 ug/mL 4.0-12.0 [facility] No Panel InformationOrdered By: Jamaal Rm on 08-08-2023 Estimated GFR (MDRD) Amer 26 mL/min >60 [facility] Comment on above: GFR Calc Estimated GFR (MDRD) Non-Af Amer 21 mL/min >60 [facility] Comment on above: Non- GFR Calc Parathyroid Hormone (Intact) 181.8 pg/mL 18.4-80.1 [facility] Urine Microalbumin/Creatinine Ratio 23189.7 mg/g CRE <30 [facility] Vitamin D 25-Hydroxy 7.4 ng/mL [facility] Comment on above: Vitamin D 25(OH) Sta tus Range Deficiency <20 ng/mL (50nmol/L) Insufficiency 20 - 30 ng/mL (50 - 75 nmol/L) Sufficiency 30 - 100 ng/mL (75 - 250 nmol/L) Toxicity >100 ng/mL (>250 nmol/L) Platelets bldOrdered By: Edwin Rm on 08-08-2023 Platelets (Bld) [#/Vol] 232 10*3/uL 150-450 [facility] Serum or plasma albumin abhi urement (mass/volume)Ordered By: Jamaal Rm on 08-08-2023 Albumin [Mass/Vol] 2.7 g/dL 3.2-5.0 [facility] Serum or plasma calcium abhi urement (mass/volume)Ordered By: Jamaal Rm on 08-08-2023 Calcium [Mass/Vol] 8.4 mg/dL 8.5-10.1 [facility] Serum or plasma creatinine m easurement (mass/volume)Ordered By: Jamaal Rm on 08-08-2023 Creatinine [Mass/Vol] 3.23 mg/dL 0.70-1.30 [facility] Comment on above: The validity of the calculated GFR & GFRAA in patients over 70 years has not been determined. Clinical correlation is essential. Serum or plasma urea nitroge n measurement (mass/volume)Ordered By: Jamaal Rm on 08-08-2023 Urea nitrogen [Mass/Vol] 35 mg/dL 7-18 [facility] Thin prep Papanicolaou smear with manual screeningOrdered By: Jamaal Rm on 08-08-2023 Thin prep Papanicolaou smear with manual screening 5420.0 mg/L NO RANGE EST. [facility] Urine creatinine measurement (mass/volume)Ordered By: Jamaal Rm on 08-08-2023 Creatinine (U) [Mass/Vol] 51.10 mg/dL NO RANGE EST. [facility] Urine protein measurement (m ass/volume)Ordered By: Jamaal Rm on 08-08-2023 Protein (U) [Mass/Vol] 654.7 mg/dL 0.0-11.8 [facility] Urine protein/creatinine mas s ratioOrdered By: Jamaal Rm on 08-08-2023 Protein/Creatinine (U) [Mass ratio] 97428 mg/g CRE 0-200 [facility] Glucose Glucometer (dC) [M ass/Vol]Ordered By: Aquiles Warren on 08-02-2023 Glucose [Mass/Vol] 162 mg/dL 74-106 [facility] Comment on above: MANAGEMENT OF PATIEN T CARE PER NURSING PROTOCOL Absolute lymphocyte countOrd ered By: Aquiles Warren on 07-25-2023 Lymphocytes Auto (Unsp spec) [#/Vol] 1.82 10*3/uL 0.83-4.51 [facility] Albumin Elph [Mass/Vol]Order ed By: Aquiles Warren on 07-25-2023 Albumin [Mass/Vol] Not Reportable [facility] Basophil percentageOrdered B y: Aquiles Warren on 07-25-2023 Basophil percentage < 0.2 AI 0.0-0.9 [facility] Basophils/100 WBC (Bld) 0.6 % 0-1 [facility] Eosinophils/100 WBC (Bld) 1.4 % 0-5 [facility] Neutrophils (Bld) [#/Vol] 4.1 10*3/uL 2.0-7.7 [facility] Neutrophils/100 WBC (Bld) 63.0 % 47-70 [facility] Triglyceride [Mass/Vol] 2740 mg/dL <199 [facility] Comment on above: The drugs N-Acetylcy steine and Metamizole may falsely depress this assay. Slight Icterus, Result may be falsely increased. Serum Triglycerides Reference Interval Normal <150 mg/dL Borderline high 150 - 199 mg/dL High 200 - 499 mg/dL Very High > or = 500 mg/dL WBC (Bld) [#/Vol] 6.5 10*3/uL 4.4-11.0 [facility] Blood erythrocytes count (nu mber/volume)Ordered By: Aquiles Warren on 07-25-2023 RBC (Bld) [#/Vol] 3.18 10*6/uL 4.6-6.2 [facility] Blood hemoglobin measurement (mass/volume)Ordered By: Aquiles Warren on 07-25-2023 Hemoglobin (Bld) [Mass/Vol] 10.7 g/dL 13.0-16.5 [facility] Blood lymphocytes/100 leukoc ytesOrdered By: Aquiles Warren on 07-25-2023 Lymphocytes/100 WBC (Bld) 27.8 % 19-41 [facility] Blood monocytes/100 leukocyt esOrdered By: Aquiles Warren on 07-25-2023 Monocytes/100 WBC (Bld) 5.8 % 0-10 [facility] Blood platelet mean volumeOr dered By: Aquiles Warren on 07-25-2023 Platelet mean volume (Bld) [Entitic vol] 9.9 fL 6.2-12.0 [facility] Determination of erythrocyte mean corpuscular volume (MCV)Ordered By: Aquiles Warren on 07-25-2023 MCV (RBC) [Entitic vol] 91.8 fL 80-94 [facility] Erythrocyte sedimentation ra teOrdered By: Aquiles Warren on 07-25-2023 ESR (Bld) [Velocity] 7 mm/h 0-20 [facility] Hematocrit Auto (Bld) [Volum e fraction]Ordered By: Aquiles Warren on 07-25-2023 Hematocrit (Bld) [Volume fraction] 29.2 % 40-54 [facility] Hemoglobin in reticulocytes (mass per reticulocyte)Ordered By: Aquiles Warren on 07-25-2023 Hemoglobin (Reticulocytes) [Entitic mass] 34.4 pg 30-35 [facility] Interpretation of serum or p lasma protein pattern by immunofixation (narrative resultOrdered By: Aquiles Warren on 07-25-2023 Protein Fractions Immunofixation Rocco [Interp] Not Reportable [facility] Iron measurement (mass/mass) Ordered By: Aquiles Warren on 07-25-2023 Iron (Unsp spec) [Mass/Mass] 75 ug/dL 65-175 [facility] Laboratory - Chemistry and C hemistry - challengeOrdered By: Aquiles Warren on 07-25-2023 Cobalamin (Vitamin B12) [Mass/Vol] 483 pg/mL 211-911 [facility] Laboratory - Hematology and Cell countsOrdered By: Aquiles Warren on 07-25-2023 Erythrocyte distribution width (RBC) [Entitic vol] 45.1 fL 35.1-43.9 [facility] Erythrocyte distribution width (RBC) [Ratio] 13.5 % 11.6-14.6 [facility] Immature granulocytes/100 WBC (Bld) 1.400 % 0.0-0.9 [facility] Comment on above: IG% - Immature Granu locytes (promyelocytes, myelocytes and metamyelocytes) > 1% indicates that a LEFT SHIFT is Present. MCH (RBC) [Entitic mass] 33.6 pg 27.0-32.0 [facility] Nucleated RBC/100 WBC (Bld) [Ratio] 0 % 0-5 [facility] MCHC Auto (RBC) [Mass/Vol]Or dered By: Aquiles Warren on 07-25-2023 MCHC (RBC) [Mass/Vol] 36.6 g/dL 32-36 [facility] No Panel InformationOrdered By: Aquiles Warren on 07-25-2023 Centromere B Antibody <0.2 AI 0.0-0.9 [facility] Immature Reticulocyte Fraction 16.20 % 3.00-15.90 [facility] Immunoglobulin E See comment [facility] Comment on above: TEST RESULTS LIMITSI mmunoglobulin E, Total 5 Low IU/mL 6-495 TESTING PERFORMED AT [facility]. ORIGINAL REPORT ON FILE IN LAB CONTAINS ADDITIONAL TEST SITE INFORMATION. Immunoglobulin G4 Not Reportable [facility] Reticulocyte Count 1.84 % 0.5-1.5 [facility] IRRIGATION PUMP INSTALLER Antibody <0.2 AI 0.0-0.9 [facility] Thyroid Stimulating Hormone (TSH) 1.44 uIU/mL 0.358-3.74 [facility] Total Iron Binding Capacity 232 ug/dL 250-450 [facility] Platelets bldOrdered By: Leonel Warren on 07-25-2023 Platelets (Bld) [#/Vol] 212 10*3/uL 150-450 [facility] Serum DNA double strand anti body assay (units/volume)Ordered By: Aquiles Warren on 07-25-2023 DNA double strand Ab Qn (S) [IU]/mL 0-9 [facility] Comment on above: Negative <5 Equivoca l 5 - 9 Positive >9 Serum IgG subclass 1 measure ment (mass/volume)Ordered By: Aquiles Warren on 07-25-2023 IgG subclass 1 (S) [Mass/Vol] Not Reportable [facility] Serum IgG subclass 2 measure ment (mass/volume)Ordered By: Aquiles Warren on 07-25-2023 IgG subclass 2 (S) [Mass/Vol] Not Reportable [facility] Serum IgG subclass 3 measure ment (mass/volume)Ordered By: Aquiles Warren on 07-25-2023 IgG subclass 3 (S) [Mass/Vol] Not Reportable [facility] Serum Anastasia-1 antibody assay (u nits/volume)Ordered By: Aquiles Warren on 07-25-2023 Anastasia-1 extractable nuclear Ab Qn (S) <0.2 AI 0.0-0.9 [facility] Serum Scl-70 extractable nuc lear antibody assay (units/volume)Ordered By: Aquiles Warren on 07-25-2023 SCL-70 extractable nuclear Ab Qn (S) <0.2 AI 0.0-0.9 [facility] Serum Albarran extractable nucl ear antibody detectionOrdered By: Aquiles Warren on 07-25-2023 Albarran extractable nuclear Ab Ql (S) <0.2 AI 0.0-0.9 [facility] Serum [id number] measu rement by electrophoresisOrdered By: Aquiles Warren on 07-25-2023 Alpha 1 globulin Elph [Mass/Vol] Not Reportable [facility] Serum or plasma C reactive p rotein measurement (mass/volume)Ordered By: Aquiles Warren on 07-25-2023 CRP [Mass/Vol] 15.30 mg/L 0.0-3.0 [facility] Comment on above: C-Reactive Protein ( CRP) provides useful information for thediagnosis, therapy and monitoring of inflammatory processesand associated diseases. For the evaluation of Relative Riskfor Cardiovascular Disease, a High Sensitivity CRP (HSCRP)should be ordered. Serum or plasma IgA measurem ent (mass/volume)Ordered By: Aquiles Warren on 07-25-2023 IgA [Mass/Vol] Not Reportable [facility] Serum or plasma IgG measurem ent (mass/volume)Ordered By: Aquiles Warren on 07-25-2023 IgG [Mass/Vol] See comment [facility] Comment on above: TEST RESULTS LIMITS IgG, Subclasses(1-4)IgG, Subclass 1 282 mg/dL 248-810IgG, Subclass 2 114 Low mg/dL 130-555IgG, Subclass 3 33 mg/dL 15-102IgG, Subclass 4 11 mg/dL 2-96 TESTING PERFORMED AT [facility]. ORIGINAL REPORT ON FILE IN LAB CONTAINS ADDITIONAL TEST SITE INFORMATION. IgG [Mass/Vol] Not Reportable [facility] Serum or plasma IgM measurem ent (mass/volume)Ordered By: Aquiles Warren on 07-25-2023 IgM [Mass/Vol] Not Reportable [facility] Serum or plasma beta globuli n measurement by electrophoresis (mass/volume)Ordered By: Aquiles Warren on 07-25-2023 Beta globulin Elph [Mass/Vol] Not Reportable [facility] Serum or plasma ferritin ngozi surement (mass/volume)Ordered By: Aquiles Warren on 07-25-2023 Ferritin [Mass/Vol] 187 ng/mL 26-388 [facility] Serum or plasma gamma globul in measurement by electrophoresis (mass/volume)Ordered By: Aquiles Kelvin on 07-25-2023 Gamma globulin Elph [Mass/Vol] Not Reportable [facility] Thin prep Papanicolaou smear with manual screeningOrdered By: Aquiles Friend on 07-25-2023 Thin prep Papanicolaou smear with manual screening Not Reportable [facility] Total protein bloodOrdered B y: Aquiles Friend on 07-25-2023 Protein [Mass/Vol] See comment [facility] Comment on above: TEST RESULTS LIMITSI FE and PE, SerumImmunoglobulin G, Qn,Serum 762 mg/dL [id number] M, Qn,Serum 87 mg/dL 20-172Protein, Total 5.6 Low g/dL 6.0-8.5Albumin 2.7 Low g/dL 2.9-4.6Rmwak-6-Vybyrmtu 0.2 g/dL 0.0-0.4Mfwpw-8-Hocdwykh 1.1 High g/dL 0.4-1.0Beta Globulin 0.9 g/dL 0.7-1.3Gamma Globulin 0.7 g/dL 2.2-3.9A/G Ratio 1.0 0.7-1.7Immunofixation Result,Serum Comment:Presence of monoclonal protein is unclear at this time. Suggest repeat in 3 to 6 months if clinically indicated.Please note: Protein electrophoresis scan will follow via computer, mail, or commercial airplane pilot delivery. TESTING PERFORMED AT [facility]. ORIGINAL REPORT ON FILE IN LAB CONTAINS ADDITIONAL TEST SITE INFORMATION. HEMOGLOBIN A1C (POC)on 06-23 HbA1c (Bld) [Mass fraction] 7.6 % Abnormal 4.2 - 5.6 % [facility] Absolute lymphocyte countOrd ered By: So Donaldson on 05-25-2023 Lymphocytes Auto (Unsp spec) [#/Vol] 1.43 10*3/uL 0.83-4.51 [facility] Absolute lymphocyte countOrd ered By: Maureen Shannan on 05-25-2023 Lymphocytes Auto (Unsp spec) [#/Vol] 1.51 10*3/uL 0.83-4.51 [facility] Basophil percentageOrdered B y: So Donaldson on 05-25-2023 Basophil percentage 0 SEEN /hpf 0-5 [facility] Basophils/100 WBC (Bld) 0.6 % 0-1 [facility] Chloride [Moles/Vol] 105 mmol/L 98-107 [facility] Eosinophils/100 WBC (Bld) 1.5 % 0-5 [facility] Glucose [Mass/Vol] 353 mg/dL 74-106 [facility] Comment on above: Glucose result great er than or equal to 200 mg/dLsuggests DIABETES MELLITUS per A.D.A. criteria. Neutrophils (Bld) [#/Vol] 2.9 10*3/uL 2.0-7.7 [facility] Neutrophils/100 WBC (Bld) 60.4 % 47-70 [facility] Potassium [Moles/Vol] 4.5 mmol/L 3.5-5.1 [facility] Sodium [Moles/Vol] 133 mmol/L 136-145 [facility] WBC (Bld) [#/Vol] 4.7 10*3/uL 4.4-11.0 [facility] Basophil percentageOrdered B y: Maureen Campbell on 05-25-2023 Basophils/100 WBC (Bld) 0.8 % 0-1 [facility] Bilirubin [Mass/Vol] 0.20 mg/dL 0.20-1.00 [facility] Comment on above: For patients on eltr ombopag therapy, use of Dimension [place] TBIL is not recommended. Chloride [Moles/Vol] 104 mmol/L 98-107 [facility] Eosinophils/100 WBC (Bld) 1.6 % 0-5 [facility] Glucose [Mass/Vol] 426 mg/dL 74-106 [facility] Comment on above: Glucose result great er than or equal to 200 mg/dLsuggests DIABETES MELLITUS per A.D.A. criteria. Neutrophils (Bld) [#/Vol] 3.0 10*3/uL 2.0-7.7 [facility] Neutrophils/100 WBC (Bld) 59.4 % 47-70 [facility] Potassium [Moles/Vol] 4.4 mmol/L 3.5-5.1 [facility] Protein [Mass/Vol] 6.6 g/dL 6.4-8.2 [facility] Sodium [Moles/Vol] 133 mmol/L 136-145 [facility] WBC (Bld) [#/Vol] 5.0 10*3/uL 4.4-11.0 [facility] Bilirubin Test strip Ql (U)O rdered By: So Donaldson on 05-25-2023 Bilirubin Ql (U) Negative Negative [facility] Blood erythrocytes count (nu mber/volume)Ordered By: So Donaldson on 05-25-2023 RBC (Bld) [#/Vol] 2.95 10*6/uL 4.6-6.2 [facility] Blood erythrocytes count (nu mber/volume)Ordered By: Maureen Campbell on 05-25-2023 RBC (Bld) [#/Vol] 3.09 10*6/uL 4.6-6.2 [facility] Blood hemoglobin measurement (mass/volume)Ordered By: So Donaldson on 05-25-2023 Hemoglobin (Bld) [Mass/Vol] 9.3 g/dL 13.0-16.5 [facility] Blood hemoglobin measurement (mass/volume)Ordered By: Maureen Campbell on 05-25-2023 Hemoglobin (Bld) [Mass/Vol] 9.5 g/dL 13.0-16.5 [facility] Blood lymphocytes/100 leukoc ytesOrdered By: So Donaldson on 05-25-2023 Lymphocytes/100 WBC (Bld) 30.3 % 19-41 [facility] Blood lymphocytes/100 leukoc ytesOrdered By: Maureen Campbell on 05-25-2023 Lymphocytes/100 WBC (Bld) 30.0 % 19-41 [facility] Blood monocytes/100 leukocyt esOrdered By: So Donaldson on 05-25-2023 Monocytes/100 WBC (Bld) 6.8 % 0-10 [facility] Blood monocytes/100 leukocyt esOrdered By: Maureen Campbell on 05-25-2023 Monocytes/100 WBC (Bld) 7.2 % 0-10 [facility] Blood platelet mean volumeOr dered By: So Donaldson on 05-25-2023 Platelet mean volume (Bld) [Entitic vol] 9.9 fL 6.2-12.0 [facility] Blood platelet mean volumeOr dered By: Maureen Campbell on 05-25-2023 Platelet mean volume (Bld) [Entitic vol] 10.2 fL 6.2-12.0 [facility] Determination of erythrocyte mean corpuscular volume (MCV)Ordered By: So Donaldson on 05-25-2023 MCV (RBC) [Entitic vol] 89.2 fL 80-94 [facility] Determination of erythrocyte mean corpuscular volume (MCV)Ordered By: Maureen Campbell on 05-25-2023 MCV (RBC) [Entitic vol] 90.3 fL 80-94 [facility] Hematocrit Auto (Bld) [Volum e fraction]Ordered By: So Donaldson on 05-25-2023 Hematocrit (Bld) [Volume fraction] 26.3 % 40-54 [facility] Hematocrit Auto (Bld) [Volum e fraction]Ordered By: Maureen Campbell on 05-25-2023 Hematocrit (Bld) [Volume fraction] 27.9 % 40-54 [facility] Ketones Test strip Ql (U)Ord ered By: So Donaldson on 05-25-2023 Ketones Ql (U) Negative Negative [facility] Laboratory - Chemistry and C hemistry - challengeOrdered By: So Donaldson on 05-25-2023 CO2 [Moles/Vol] 22.0 mmol/L 21.0-32.0 [facility] Urea nitrogen/Creatinine [Mass ratio] 13.4 mg/mg 10-20 [facility] Laboratory - Chemistry and C hemistry - challengeOrdered By: Maureen Campbell on 05-25-2023 ALP [Catalytic activity/Vol] 65 U/L 45-117 [facility] ALT [Catalytic activity/Vol] 22 U/L 16-61 [facility] CO2 [Moles/Vol] 23.0 mmol/L 21.0-32.0 [facility] Globulin (S) [Mass/Vol] 3.9 g/dL 2.2-4.2 [facility] Urea nitrogen/Creatinine [Mass ratio] 12.5 mg/mg 06-16 [facility] Laboratory - Hematology and Cell countsOrdered By: So Donaldson on 05-25-2023 Erythrocyte distribution width (RBC) [Entitic vol] 43.8 fL 35.1-43.9 [facility] Erythrocyte distribution width (RBC) [Ratio] 13.3 % 11.6-14.6 [facility] Immature granulocytes/100 WBC (Bld) 0.400 % 0.0-0.9 [facility] Comment on above: IG% - Immature Granu locytes (promyelocytes, myelocytes and metamyelocytes) > 1% indicates that a LEFT SHIFT is Present. MCH (RBC) [Entitic mass] 31.5 pg 27.0-32.0 [facility] Nucleated RBC/100 WBC (Bld) [Ratio] 0 % 0-5 [facility] Laboratory - Hematology and Cell countsOrdered By: Maureen Campbell on 05-25-2023 Erythrocyte distribution width (RBC) [Entitic vol] 44.4 fL 35.1-43.9 [facility] Erythrocyte distribution width (RBC) [Ratio] 13.5 % 11.6-14.6 [facility] Immature granulocytes/100 WBC (Bld) 1.000 % 0.0-0.9 [facility] Comment on above: IG% - Immature Granu locytes (promyelocytes, myelocytes and metamyelocytes) > 1% indicates that a LEFT SHIFT is Present. MCH (RBC) [Entitic mass] 30.7 pg 27.0-32.0 [facility] Nucleated RBC/100 WBC (Bld) [Ratio] 0 % 0-5 [facility] MCHC Auto (RBC) [Mass/Vol]Or dered By: So Donaldson on 05-25-2023 MCHC (RBC) [Mass/Vol] 35.4 g/dL - [facility] MCHC Auto (RBC) [Mass/Vol]Or dered By: Maureen Campbell on 05-25-2023 MCHC (RBC) [Mass/Vol] 34.1 g/dL -36 [facility] Mucus LM Ql (Urine sed)Order ed By: So Donaldson on 05-25-2023 Mucus Ql (Urine sed) 0 SEEN /hpf [facility] Nitrite Test strip Ql (U)Ord ered By: So Donaldson on 05-25-2023 Nitrite Ql (U) Negative Negative [facility] No Panel InformationOrdered By: So Donaldson on 05-25-2023 Estimated Creatinine Clearance Calc 29.49 ml/min [facility] Estimated GFR (MDRD) Amer 31 mL/min >60 [facility] Comment on above: GFR Calc Estimated GFR (MDRD) Non-Af Amer 26 mL/min >60 [facility] Comment on above: Non- GFR Calc No Panel InformationOrdered By: Maureen Campbell on 05-25-2023 Estimated Creatinine Clearance Calc 27.51 ml/min [facility] Estimated GFR (MDRD) Amer 28 mL/min >60 [facility] Comment on above: GFR Calc Estimated GFR (MDRD) Non-Af Amer 24 mL/min >60 [facility] Comment on above: Non- GFR Calc Platelets bldOrdered By: Ludmila Donaldson on 05-25-2023 Platelets (Bld) [#/Vol] 135 10*3/uL 150-450 [facility] Platelets bldOrdered By: Georgina Campbell on 05-25-2023 Platelets (Bld) [#/Vol] 153 10*3/uL 150-450 [facility] Protein Test strip Ql (U)Ord ered By: So Donaldson on 05-25-2023 Protein Ql (U) 500 mg/dl Negative [facility] Serum or plasma albumin abhi urement (mass/volume)Ordered By: Maureen Campbell on 05-25-2023 Albumin [Mass/Vol] 2.7 g/dL 3.2-5.0 [facility] Serum or plasma albumin/glob ulin mass ratioOrdered By: Maureen Campbell on 05-25-2023 Albumin/Globulin [Mass ratio] 0.7 {ratio} 0.9-2.4 [facility] Serum or plasma calcium abhi urement (mass/volume)Ordered By: So Donaldson on 05-25-2023 Calcium [Mass/Vol] 7.5 mg/dL 8.5-10.1 [facility] Serum or plasma calcium abhi urement (mass/volume)Ordered By: Maureen Campbell on 05-25-2023 Calcium [Mass/Vol] 7.8 mg/dL 8.5-10.1 [facility] Serum or plasma creatinine m easurement (mass/volume)Ordered By: So Donaldson on 05-25-2023 Creatinine [Mass/Vol] 2.77 mg/dL 0.70-1.30 [facility] Comment on above: The validity of the calculated GFR & GFRAA in patients over 70 years has not been determined. Clinical correlation is essential. Serum or plasma creatinine m easurement (mass/volume)Ordered By: Maureen Campbell on 05-25-2023 Creatinine [Mass/Vol] 2.97 mg/dL 0.70-1.30 [facility] Comment on above: The validity of the calculated GFR & GFRAA in patients over 70 years has not been determined. Clinical correlation is essential. Serum or plasma urea nitroge n measurement (mass/volume)Ordered By: So Donaldson on 05-25-2023 Urea nitrogen [Mass/Vol] 37 mg/dL 03-14 [facility] Serum or plasma urea nitroge n measurement (mass/volume)Ordered By: Maureen Campbell on 05-25-2023 Urea nitrogen [Mass/Vol] 37 mg/dL 03-14 [facility] Squamous epithelial cells de tection in urine sediment by light microscopyOrdered By: So Donaldson on 05-25-2023 Epithelial cells.squamous LM Ql (Urine sed) 0 SEEN /hpf 0-5 [facility] Thin prep Papanicolaou smear with manual screeningOrdered By: So Donaldson on 05-25-2023 Thin prep Papanicolaou smear with manual screening 6 5-15 [facility] Thin prep Papanicolaou smear with manual screeningOrdered By: Maureen Campbell on 05-25-2023 Thin prep Papanicolaou smear with manual screening 9 U/L 15-37 [facility] Thin prep Papanicolaou smear with manual screening 6 5-15 [facility] Urine blood detectionOrdered By: So Donaldson on 05-25-2023 RBC Ql (U) 25 /ul Negative [facility] RBC Ql (U) 0 SEEN /hpf 0-5 [facility] Urine clarityOrdered By: Ludmila Donaldson on 05-25-2023 Clarity (U) Clear Clear [facility] Urine color determinationOrd ered By: So Donaldson on 05-25-2023 Color (U) Yellow Yellow [facility] Urine glucose detectionOrder ed By: So Donaldson on 05-25-2023 Glucose Ql (U) 1000 mg/dl Normal [facility] Urine leukocyte esterase det ection by dipstickOrdered By: So Donaldson on 05-25-2023 Leukocyte esterase Test strip Ql (U) Negative Negative [facility] Urine pHOrdered By: So Donaldson on 05-25-2023 pH (U) 6.0 [pH] 5.0 - 8.0 [facility] Urine sediment bacteria coun t by microscopy (number/high power field)Ordered By: So Donaldson on 05-25-2023 Bacteria LM.HPF (Urine sed) [#/Area] 0 /[HPF] None Seen [facility] Urine specific gravity measu rementOrdered By: So Donaldson on 05-25-2023 Specific gravity (U) [Rel density] 1.015 1.002-1.030 [facility] Urobilinogen Auto test strip Ql (U)Ordered By: So Donaldson on 05-25-2023 Urobilinogen Ql (U) Normal mg/dl Normal [facility] Iron measurement (mass/mass) Ordered By: Maureen Campbell on 05-11-2023 Iron (Unsp spec) [Mass/Mass] 85 ug/dL 65-175 [facility] No Panel InformationOrdered By: Maureen Campbell on 05-11-2023 Total Iron Binding Capacity 269 ug/dL 250-450 [facility] Serum or plasma ferritin ngozi surement (mass/volume)Ordered By: Maureen Campbell on 05-11-2023 Ferritin [Mass/Vol] 70 ng/mL 26-388 [facility] Serum or plasma iron saturat ion measurement (mass fraction)Ordered By: Maureen Campbell on 05-11-2023 Iron saturation [Mass fraction] 31.6 % 15.0-55.0 [facility] Laboratory - Hematology and Cell countson 05-03-2023 HbA1c (Bld) [Mass fraction] 7.2 % 4.2-6.3 [facility] Basophil percentageOrdered B y: Jamaal Rm on 03-24-2023 Basophil percentage 3.9 mg/dL 2.5-4.9 [facility] Chloride [Moles/Vol] 106 mmol/L 98-107 [facility] Glucose [Mass/Vol] 213 mg/dL 74-106 [facility] Comment on above: Glucose result great er than or equal to 200 mg/dLsuggests DIABETES MELLITUS per A.D.A. criteria. Potassium [Moles/Vol] 5.0 mmol/L 3.5-5.1 [facility] Sodium [Moles/Vol] 135 mmol/L 136-145 [facility] WBC (Bld) [#/Vol] 5.0 10*3/uL 4.4-11.0 [facility] Blood erythrocytes count (nu mber/volume)Ordered By: Jamaal Rm on 03-24-2023 RBC (Bld) [#/Vol] 3.11 10*6/uL 4.6-6.2 [facility] Blood hemoglobin measurement (mass/volume)Ordered By: Jamaal Rm on 03-24-2023 Hemoglobin (Bld) [Mass/Vol] 9.2 g/dL 13.0-16.5 [facility] Blood platelet mean volumeOr dered By: Jamaal Rm on 03-24-2023 Platelet mean volume (Bld) [Entitic vol] 10.4 fL 6.2-12.0 [facility] Determination of erythrocyte mean corpuscular volume (MCV)Ordered By: Jamaal Rm on 03-24-2023 MCV (RBC) [Entitic vol] 89.7 fL 80-94 [facility] Hematocrit Auto (Bld) [Volum e fraction]Ordered By: Jamaal Rm on 03-24-2023 Hematocrit (Bld) [Volume fraction] 27.9 % 40-54 [facility] Laboratory - Chemistry and C hemistry - challengeOrdered By: Jamaal Rm on 03-24-2023 CO2 [Moles/Vol] 23.0 mmol/L 21.0-32.0 [facility] Urea nitrogen/Creatinine [Mass ratio] 12.3 mg/mg 10-20 [facility] - Hematology and Cell countsOrdered By: Jamaal Rm on 03-24-2023 Erythrocyte distribution width (RBC) [Entitic vol] 43.5 fL 35.1-43.9 [facility] Erythrocyte distribution width (RBC) [Ratio] 13.3 % 11.6-14.6 [facility] MCH (RBC) [Entitic mass] 29.6 pg 27.0-32.0 [facility] MCHC Auto (RBC) [Mass/Vol]Or dered By: Jamaal Rm on 03-24-2023 MCHC (RBC) [Mass/Vol] 33.0 g/dL 32-36 [facility] No Panel InformationOrdered By: Jamaal Rm on 03-24-2023 Estimated GFR (MDRD) Amer 34 mL/min >60 [facility] Comment on above: GFR Calc Estimated GFR (MDRD) Non-Af Amer 28 mL/min >60 [facility] Comment on above: Non- GFR Calc Parathyroid Hormone (Intact) 131.0 pg/mL 18.4-80.1 [facility] Vitamin D 25-Hydroxy 11.8 ng/mL [facility] Comment on above: Vitamin D 25(OH) Sta tus Range Deficiency <20 ng/mL (50nmol/L) Insufficiency 20 - 30 ng/mL (50 - 75 nmol/L) Sufficiency 30 - 100 ng/mL (75 - 250 nmol/L) Toxicity >100 ng/mL (>250 nmol/L) Platelets bldOrdered By: Edwin Rm on 03-24-2023 Platelets (Bld) [#/Vol] 193 10*3/uL 150-450 [facility] Serum or plasma albumin abhi urement (mass/volume)Ordered By: Jamaal Rm on 03-24-2023 Albumin [Mass/Vol] 2.8 g/dL 3.2-5.0 [facility] Serum or plasma calcium abhi urement (mass/volume)Ordered By: Jamaal Rm on 03-24-2023 Calcium [Mass/Vol] 8.7 mg/dL 8.5-10.1 [facility] Serum or plasma creatinine m easurement (mass/volume)Ordered By: Jamaal Rm on 03-24-2023 Creatinine [Mass/Vol] 2.52 mg/dL 0.70-1.30 [facility] Comment on above: The validity of the calculated GFR & GFRAA in patients over 70 years has not been determined. Clinical correlation is essential. Serum or plasma urea nitroge n measurement (mass/volume)Ordered By: Jamaal Rm on 03-24-2023 Urea nitrogen [Mass/Vol] 31 mg/dL 7-18 [facility] Urine creatinine measurement (mass/volume)Ordered By: Jamaal Rm on 03-24-2023 Creatinine (U) [Mass/Vol] 119.00 mg/dL NO RANGE EST. [facility] Urine protein measurement (m ass/volume)Ordered By: Jamaal Rm on 03-24-2023 Protein (U) [Mass/Vol] 1186.0 mg/dL 0.0-11.8 [facility] Urine protein/creatinine mas s ratioOrdered By: Jamaal Rm on 03-24-2023 Protein/Creatinine (U) [Mass ratio] 9966 mg/g CRE 0-200 [facility] Absolute lymphocyte countOrd ered By: Maureen Campbell on 03-16-2023 Lymphocytes Auto (Unsp spec) [#/Vol] 2.01 10*3/uL 0.83-4.51 [facility] Basophil percentageOrdered B y: Maureen Campbell on 03-16-2023 Basophils/100 WBC (Bld) 0.7 % 0-1 [facility] Bilirubin [Mass/Vol] 0.20 mg/dL 0.20-1.00 [facility] Comment on above: For patients on eltr ombopag therapy, use of Dimension [place] TBIL is not recommended. Chloride [Moles/Vol] 107 mmol/L 98-107 [facility] Eosinophils/100 WBC (Bld) 1.2 % 0-5 [facility] Glucose [Mass/Vol] 112 mg/dL 74-106 [facility] Comment on above: Fasting Glucose resu lt from 100 to 125 mg/dL suggests IMPAIRED HOMEOSTASIS per A.D.A. criteria. Neutrophils (Bld) [#/Vol] 3.5 10*3/uL 2.0-7.7 [facility] Neutrophils/100 WBC (Bld) 58.0 % 47-70 [facility] Potassium [Moles/Vol] 4.9 mmol/L 3.5-5.1 [facility] Protein [Mass/Vol] 6.9 g/dL 6.4-8.2 [facility] Sodium [Moles/Vol] 137 mmol/L 136-145 [facility] WBC (Bld) [#/Vol] 6.0 10*3/uL 4.4-11.0 [facility] Blood erythrocytes count (nu mber/volume)Ordered By: Maureen Campbell on 03-16-2023 RBC (Bld) [#/Vol] 3.49 10*6/uL 4.6-6.2 [facility] Blood hemoglobin measurement (mass/volume)Ordered By: Maureen Campbell on 03-16-2023 Hemoglobin (Bld) [Mass/Vol] 10.2 g/dL 13.0-16.5 [facility] Blood lymphocytes/100 leukoc ytesOrdered By: Maureen Campbell on 03-16-2023 Lymphocytes/100 WBC (Bld) 33.6 % 19-41 [facility] Blood monocytes/100 leukocyt esOrdered By: Maureen Campbell on 03-16-2023 Monocytes/100 WBC (Bld) 5.7 % 0-10 [facility] Blood platelet mean volumeOr dered By: Maureen Campbell on 03-16-2023 Platelet mean volume (Bld) [Entitic vol] 10.0 fL 6.2-12.0 [facility] Determination of erythrocyte mean corpuscular volume (MCV)Ordered By: Maureen Campbell on 03-16-2023 MCV (RBC) [Entitic vol] 88.5 fL 80-94 [facility] Hematocrit Auto (Bld) [Volum e fraction]Ordered By: Maureen Campbell on 03-16-2023 Hematocrit (Bld) [Volume fraction] 30.9 % 40-54 [facility] Iron measurement (mass/mass) Ordered By: Maureen Campbell on 03-16-2023 Iron (Unsp spec) [Mass/Mass] 122 ug/dL 65-175 [facility] Laboratory - Chemistry and C hemistry - challengeOrdered By: Maureen Campbell on 03-16-2023 ALP [Catalytic activity/Vol] 62 U/L 45-117 [facility] ALT [Catalytic activity/Vol] 20 U/L 16-61 [facility] CO2 [Moles/Vol] 22.0 mmol/L 21.0-32.0 [facility] Globulin (S) [Mass/Vol] 4.0 g/dL 2.2-4.2 [facility] Urea nitrogen/Creatinine [Mass ratio] 15.5 mg/mg 10-20 [facility] - Hematology and Cell countsOrdered By: Maureen Campbell on 03-16-2023 Erythrocyte distribution width (RBC) [Entitic vol] 44.9 fL 35.1-43.9 [facility] Erythrocyte distribution width (RBC) [Ratio] 14.0 % 11.6-14.6 [facility] Immature granulocytes/100 WBC (Bld) 0.800 % 0.0-0.9 [facility] Comment on above: IG% - Immature Granu locytes (promyelocytes, myelocytes and metamyelocytes) > 1% indicates that a LEFT SHIFT is Present. MCH (RBC) [Entitic mass] 29.2 pg 27.0-32.0 [facility] Nucleated RBC/100 WBC (Bld) [Ratio] 0 % 0-5 [facility] MCHC Auto (RBC) [Mass/Vol]Or dered By: Maureen Campbell on 03-16-2023 MCHC (RBC) [Mass/Vol] 33.0 g/dL 32-36 [facility] No Panel InformationOrdered By: Maureen Campbell on 03-16-2023 Estimated Creatinine Clearance Calc 32.42 ml/min [facility] Estimated GFR (MDRD) Amer 34 mL/min >60 [facility] Comment on above: GFR Calc Estimated GFR (MDRD) Non-Af Amer 28 mL/min >60 [facility] Comment on above: Non- GFR Calc Total Iron Binding Capacity 305 ug/dL 250-450 [facility] Platelets bldOrdered By: Georgina Campbell on 03-16-2023 Platelets (Bld) [#/Vol] 212 10*3/uL 150-450 [facility] Serum or plasma albumin abhi urement (mass/volume)Ordered By: Maureen Campbell on 03-16-2023 Albumin [Mass/Vol] 2.9 g/dL 3.2-5.0 [facility] Serum or plasma albumin/glob ulin mass ratioOrdered By: Maureen Campbell on 03-16-2023 Albumin/Globulin [Mass ratio] 0.7 {ratio} 0.9-2.4 [facility] Serum or plasma calcium abhi urement (mass/volume)Ordered By: Maureen Campbell on 03-16-2023 Calcium [Mass/Vol] 8.7 mg/dL 8.5-10.1 [facility] Serum or plasma carcinoembry onic antigen measurement (mass/volume)Ordered By: Maureen Campbell on 03-16-2023 Carcinoembryonic Ag [Mass/Vol] 1.4 ng/mL 0.0-4.7 [facility] Comment on above: Nonsmokers <3.9 Smok ers <5.6[employer] Electrochemiluminescence Immunoassay(ECLIA)Values obtained with different assay methods or kitscannot be used interchangeably. Results cannot beinterpreted as absolute evidence of the presence orabsence of malignant disease.Performed at: [facility] [employer] [id number] Director: Bradley Peña PhD, Phone: [phone] Serum or plasma creatinine m easurement (mass/volume)Ordered By: Maureen Campbell on 03-16-2023 Creatinine [Mass/Vol] 2.52 mg/dL 0.70-1.30 [facility] Comment on above: The validity of the calculated GFR & GFRAA in patients over 70 years has not been determined. Clinical correlation is essential. Serum or plasma ferritin ngozi surement (mass/volume)Ordered By: Maureen Campbell on 03-16-2023 Ferritin [Mass/Vol] 99 ng/mL 26-388 [facility] Serum or plasma iron saturat ion measurement (mass fraction)Ordered By: Maureen Campbell on 03-16-2023 Iron saturation [Mass fraction] 40.0 % 15.0-55.0 [facility] Serum or plasma urea nitroge n measurement (mass/volume)Ordered By: Maureen Campbell on 03-16-2023 Urea nitrogen [Mass/Vol] 39 mg/dL 7-18 [facility] Thin prep Papanicolaou smear with manual screeningOrdered By: Maureen Campbell on 03-16-2023 Thin prep Papanicolaou smear with manual screening 9 U/L 15-37 [facility] Thin prep Papanicolaou smear with manual screening 8 5-15 [facility] Basophil percentageOrdered B y: Jimmie Ibarra on 01-31-2023 LDH [Catalytic activity/Vol] 189 U/L 87-241 [facility] Comment on above: Slight Hemolysis, Re sult may be falsely increased. Whole blood hemoglobin A1c/t otal hemoglobin ratio (mass fraction)Ordered By: Grisel Timmons on 01-31-2023 HbA1c (Bld) [Mass fraction] 7.0 % High 3.8-5.6 [facility] Comment on above: Normal < 5.7 % Predi abetic 5.7 - 6.4 % Diabetic >or= 6.5 % Please note range changes. CBC W Auto Differential pane l (Bld)on 12-01-2022 Basophils (Bld) [#/Vol] <0.11 k/uL [facility] Basophils/100 WBC (Bld) 0.4 % [facility] Differential cell count method Nom (Bld) Auto [facility] Eosinophils (Bld) [#/Vol] 0.07 10*3/uL <0.46 k/uL [facility] Eosinophils/100 WBC (Bld) 1.3 % [facility] Erythrocyte distribution width (RBC) [Ratio] 15.1 % High 11.5 - 15.0 % [facility] Hematocrit (Bld) [Volume fraction] 26.2 % Low 39.0 - 51.0 % [facility] Hemoglobin (Bld) [Mass/Vol] 8.7 g/dL Low 13.0 - 17.0 g/dL [facility] Immature granulocytes (Bld) [#/Vol] 0.04 10*3/uL <0.10 k/uL [facility] Immature granulocytes/100 WBC (Bld) 0.7 % [facility] Lymphocytes (Bld) [#/Vol] 1.57 10*3/uL 1.00 - 4.00 k/uL [facility] Lymphocytes/100 WBC (Bld) 28.7 % [facility] MCH (RBC) [Entitic mass] 30.3 pg 26.0 - 34.0 pg [facility] MCHC (RBC) [Mass/Vol] 33.2 g/dL 30.5 - 36.0 g/dL [facility] MCV (RBC) [Entitic vol] 91.3 fL 80.0 - 100.0 fL [facility] Monocytes (Bld) [#/Vol] 0.39 10*3/uL <0.87 k/uL [facility] Monocytes/100 WBC (Bld) 7.1 % [facility] Neutrophils (Bld) [#/Vol] 3.38 10*3/uL 1.45 - 7.50 k/uL [facility] Neutrophils/100 WBC (Bld) 61.8 % [facility] Nucleated RBC (Bld) [#/Vol] <0.01 k/uL [facility] Nucleated RBC/100 WBC (Bld) [Ratio] 0.0 /100 WBC [facility] Platelet mean volume (Bld) [Entitic vol] 10.7 fL 9.0 - 12.7 fL [facility] Platelets (Bld) [#/Vol] 240 10*3/uL 150 - 400 k/uL [facility] RBC (Bld) [#/Vol] 2.87 10*6/uL Low 4.20 - 6.0 0 m/uL [facility] WBC (Bld) [#/Vol] 5.47 10*3/uL 3.70 - 11. 00 k/uL [facility] T3 FREE BLDon 12-01-2022 Free T3 [Mass/Vol] 2.5 pg/mL 2.3 - 4.1 pg/mL [facility] T4 FREE/FREE THYROXon 2022 Free T4 [Mass/Vol] 0.8 ng/dL Low 0.9 - 1.7 ng/dL [facility] Absolute lymphocyte countOrd ered By: Dr. Renae on 11-26-2022 Lymphocytes Auto (Unsp spec) [#/Vol] 1.60 10*3/uL 0.83-4.51 [facility] Basophil percentageOrdered B y: Dr. Renae on 11-26-2022 LDH [Catalytic activity/Vol] 159 U/L 87-241 [facility] Basophils/100 WBC (Bld) 0.4 % 0-1 [facility] Bilirubin [Mass/Vol] 0.20 mg/dL 0.20-1.00 [facility] Comment on above: For patients on eltr ombopag therapy, use of Dimension [place] TBIL is not recommended. Chloride [Moles/Vol] 108 mmol/L 98-107 [facility] Eosinophils/100 WBC (Bld) 1.5 % 0-5 [facility] Glucose [Mass/Vol] 228 mg/dL 74-106 [facility] Comment on above: Glucose result great er than or equal to 200 mg/dLsuggests DIABETES MELLITUS per A.D.A. criteria. Neutrophils (Bld) [#/Vol] 3.2 10*3/uL 2.0-7.7 [facility] Neutrophils/100 WBC (Bld) 60.6 % 47-70 [facility] Potassium [Moles/Vol] 4.5 mmol/L 3.5-5.1 [facility] Protein [Mass/Vol] 6.1 g/dL 6.4-8.2 [facility] Sodium [Moles/Vol] 135 mmol/L 136-145 [facility] WBC (Bld) [#/Vol] 5.2 10*3/uL 4.4-11.0 [facility] Blood erythrocytes count (nu mber/volume)Ordered By: Dr. Renae on 11-26-2022 RBC (Bld) [#/Vol] 2.59 10*6/uL 4.6-6.2 [facility] Blood hemoglobin measurement (mass/volume)Ordered By: Dr. Renae on 11-26-2022 Hemoglobin (Bld) [Mass/Vol] 7.8 g/dL 13.0-16.5 [facility] Blood lymphocytes/100 leukoc ytesOrdered By: Dr. Renae on 11-26-2022 Lymphocytes/100 WBC (Bld) 30.7 % 19-41 [facility] Blood monocytes/100 leukocyt esOrdered By: Dr. Renae on 11-26-2022 Monocytes/100 WBC (Bld) 6.0 % 0-10 [facility] Blood platelet mean volumeOr dered By: Dr. Renae on 11-26-2022 Platelet mean volume (Bld) [Entitic vol] 10.7 fL 6.2-12.0 [facility] Determination of erythrocyte mean corpuscular volume (MCV)Ordered By: Dr. Renae on 11-26-2022 MCV (RBC) [Entitic vol] 91.5 fL 80-94 [facility] Glucose Glucometer (dC) [M ass/Vol]Ordered By: Dr. Renae on 11-26-2022 Glucose [Mass/Vol] 272 mg/dL 74-106 [facility] Comment on above: MANAGEMENT OF PATIEN T CARE PER NURSING PROTOCOL Hematocrit Auto (Bld) [Volum e fraction]Ordered By: Dr. Renae on 11-26-2022 Hematocrit (Bld) [Volume fraction] 23.7 % 40-54 [facility] Hemoglobin in reticulocytes (mass per reticulocyte)Ordered By: Dr. Renae on 11-26-2022 Hemoglobin (Reticulocytes) [Entitic mass] 33.6 pg 30-35 [facility] Iron measurement (mass/mass) Ordered By: Dr. Renae on 11-26-2022 Iron (Unsp spec) [Mass/Mass] 60 ug/dL 65-175 [facility] Laboratory - Chemistry and C hemistry - challengeOrdered By: Dr. Renae on 11-26-2022 ALP [Catalytic activity/Vol] 64 U/L 45-117 [facility] ALT [Catalytic activity/Vol] 16 U/L 16-61 [facility] CO2 [Moles/Vol] 21.0 mmol/L 21.0-32.0 [facility] Globulin (S) [Mass/Vol] 3.4 g/dL 2.2-4.2 [facility] Urea nitrogen/Creatinine [Mass ratio] 16.1 mg/mg 10-20 [facility] Laboratory - Hematology and Cell countsOrdered By: Dr. Renae on 11-26-2022 Erythrocyte distribution width (RBC) [Entitic vol] 46.5 fL 35.1-43.9 [facility] Erythrocyte distribution width (RBC) [Ratio] 14.6 % 11.6-14.6 [facility] Immature granulocytes/100 WBC (Bld) 0.800 % 0.0-0.9 [facility] Comment on above: IG% - Immature Granu locytes (promyelocytes, myelocytes and metamyelocytes) > 1% indicates that a LEFT SHIFT is Present. MCH (RBC) [Entitic mass] 30.1 pg 27.0-32.0 [facility] Nucleated RBC/100 WBC (Bld) [Ratio] 0 % 0-5 [facility] MCHC Auto (RBC) [Mass/Vol]Or dered By: Dr. Renae on 11-26-2022 MCHC (RBC) [Mass/Vol] 32.9 g/dL 32-36 [facility] No Panel InformationOrdered By: Dr. Renae on 11-26-2022 Immature Reticulocyte Fraction 32.00 % 3.00-15.90 [facility] Reticulocyte Count 4.38 % 0.5-1.5 [facility] Total Iron Binding Capacity 296 ug/dL 250-450 [facility] Estimated Creatinine Clearance Calc 43.92 ml/min [facility] Estimated GFR (MDRD) Amer 49 mL/min >60 [facility] Comment on above: GFR Calc Estimated GFR (MDRD) Non-Af Amer 40 mL/min >60 [facility] Comment on above: Non- GFR Calc Platelets bldOrdered By: Dr. Renae on 11-26-2022 Platelets (Bld) [#/Vol] 159 10*3/uL 150-450 [facility] Serum or plasma albumin abhi urement (mass/volume)Ordered By: Dr. Renae on 11-26-2022 Albumin [Mass/Vol] 2.7 g/dL 3.2-5.0 [facility] Serum or plasma albumin/glob ulin mass ratioOrdered By: Dr. Renae on 11-26-2022 Albumin/Globulin [Mass ratio] 0.8 {ratio} 0.9-2.4 [facility] Serum or plasma calcium abhi urement (mass/volume)Ordered By: Dr. Renae on 11-26-2022 Calcium [Mass/Vol] 8.5 mg/dL 8.5-10.1 [facility] Serum or plasma creatinine m easurement (mass/volume)Ordered By: Dr. Renae on 11-26-2022 Creatinine [Mass/Vol] 1.86 mg/dL 0.70-1.30 [facility] Comment on above: The validity of the calculated GFR & GFRAA in patients over 70 years has not been determined. Clinical correlation is essential. Serum or plasma ferritin ngozi surement (mass/volume)Ordered By: Dr. Renae on 11-26-2022 Ferritin [Mass/Vol] 46 ng/mL 26-388 [facility] Serum or plasma urea nitroge n measurement (mass/volume)Ordered By: Dr. Renae on 11-26-2022 Urea nitrogen [Mass/Vol] 30 mg/dL 7-18 [facility] Thin prep Papanicolaou smear with manual screeningOrdered By: Dr. Renae on 11-26-2022 Thin prep Papanicolaou smear with manual screening 13 U/L 15-37 [facility] Thin prep Papanicolaou smear with manual screening 6 5-15 [facility] No Panel InformationOrdered By: Dr. Renae on 11-25-2022 Carbamazepine (Tegretol) Level 7.3 ug/mL 4.0-12.0 [facility] Free Triiodothyronine (T3) pg/dL 1.9 pg/mL 2.18-3.98 [facility] Serum or plasma cortisol ngozi surement (mass/volume)Ordered By: Dr. Renae on 11-25-2022 Cortisol [Mass/Vol] 5.60 ug/dL 3.44-22.45 [facility] Comment on above: Adult (AM) 5.27 - 22 .45 ug/dL Adult (PM) 3.44 - 16.76 ug/dLPlease note revised CORTISOL reference range effective 2019. Laboratory - Chemistry and C hemistry - challengeOrdered By: Dr. Renae on 11-24-2022 Free T4 [Mass/Vol] 0.57 ng/dL 0.76-1.46 [facility] No Panel InformationOrdered By: Dr. Renae on 11-24-2022 Thyroid Stimulating Hormone (TSH) 0.35 uIU/mL 0.358-3.74 [facility] Absolute lymphocyte countOrd ered By: Dr. Hogan on 11-23-2022 Lymphocytes Auto (Unsp spec) [#/Vol] 1.19 10*3/uL 0.83-4.51 [facility] Basophil percentageOrdered B y: Dr. Hogan on 11-23-2022 Basophils/100 WBC (Bld) 0.4 % 0-1 [facility] Chloride [Moles/Vol] 108 mmol/L 98-107 [facility] Eosinophils/100 WBC (Bld) 1.5 % 0-5 [facility] Glucose [Mass/Vol] 336 mg/dL 74-106 [facility] Comment on above: Glucose result great er than or equal to 200 mg/dLsuggests DIABETES MELLITUS per A.D.A. criteria. Neutrophils (Bld) [#/Vol] 3.0 10*3/uL 2.0-7.7 [facility] Neutrophils/100 WBC (Bld) 65.2 % 47-70 [facility] Potassium [Moles/Vol] 5.1 mmol/L 3.5-5.1 [facility] Sodium [Moles/Vol] 134 mmol/L 136-145 [facility] WBC (Bld) [#/Vol] 4.6 10*3/uL 4.4-11.0 [facility] Blood erythrocytes count (nu mber/volume)Ordered By: Dr. Hogan on 11-23-2022 RBC (Bld) [#/Vol] 2.07 10*6/uL 4.6-6.2 [facility] Blood hemoglobin measurement (mass/volume)Ordered By: Dr. Hogan on 11-23-2022 Hemoglobin (Bld) [Mass/Vol] 6.3 g/dL 13.0-16.5 [facility] Blood lymphocytes/100 leukoc ytesOrdered By: Dr. Hogan on 11-23-2022 Lymphocytes/100 WBC (Bld) 25.6 % 19-41 [facility] Blood monocytes/100 leukocyt esOrdered By: Dr. Hogan on 11-23-2022 Monocytes/100 WBC (Bld) 6.0 % 0-10 [facility] Blood platelet mean volumeOr dered By: Dr. Hogan on 11-23-2022 Platelet mean volume (Bld) [Entitic vol] 10.8 fL 6.2-12.0 [facility] Determination of erythrocyte mean corpuscular volume (MCV)Ordered By: Dr. Hogan on 11-23-2022 MCV (RBC) [Entitic vol] 91.8 fL 80-94 [facility] Hematocrit Auto (Bld) [Volum e fraction]Ordered By: Dr. Hogan on 11-23-2022 Hematocrit (Bld) [Volume fraction] 19.0 % 40-54 [facility] Laboratory - Chemistry and C hemistry - challengeOrdered By: Dr. Hogan on 11-23-2022 CO2 [Moles/Vol] 21.0 mmol/L 21.0-32.0 [facility] Urea nitrogen/Creatinine [Mass ratio] 19.4 mg/mg 10-20 [facility] Laboratory - Hematology and Cell countsOrdered By: Dr. Hogan on 11-23-2022 Erythrocyte distribution width (RBC) [Entitic vol] 43.8 fL 35.1-43.9 [facility] Erythrocyte distribution width (RBC) [Ratio] 13.6 % 11.6-14.6 [facility] Immature granulocytes/100 WBC (Bld) 1.300 % 0.0-0.9 [facility] Comment on above: IG% - Immature Granu locytes (promyelocytes, myelocytes and metamyelocytes) > 1% indicates that a LEFT SHIFT is Present. MCH (RBC) [Entitic mass] 30.4 pg 27.0-32.0 [facility] Nucleated RBC/100 WBC (Bld) [Ratio] 0 % 0-5 [facility] Lower GI hemoglobin IA Ql (S tl)Ordered By: Dr. Renae on 11-23-2022 Stool Occult Blood (YENNI) Positive [facility] MCHC Auto (RBC) [Mass/Vol]Or dered By: Dr. Hogan on 11-23-2022 MCHC (RBC) [Mass/Vol] 33.2 g/dL 32-36 [facility] No Panel InformationOrdered By: Dr. Hogan on 11-23-2022 Estimated Creatinine Clearance Calc 35.99 ml/min [facility] Estimated GFR (MDRD) Amer 39 mL/min >60 [facility] Comment on above: GFR Calc Estimated GFR (MDRD) Non-Af Amer 32 mL/min >60 [facility] Comment on above: Non- GFR Calc Troponin I High Sensitivity 13 pg/mL 3.0-78.0 [facility] Comment on above: Please Note: [place] t Units and Gender Specific Reference Ranges. For more information see Policy Stat Procedure [place] High Sensitivity Troponin (TNIH) and attachments. Platelets bldOrdered By: Dr. Hogan on 11-23-2022 Platelets (Bld) [#/Vol] 154 10*3/uL 150-450 [facility] Serum or plasma calcium abhi urement (mass/volume)Ordered By: Dr. Hogan on 11-23-2022 Calcium [Mass/Vol] 7.3 mg/dL 8.5-10.1 [facility] Serum or plasma creatinine m easurement (mass/volume)Ordered By: Dr. Hogan on 11-23-2022 Creatinine [Mass/Vol] 2.27 mg/dL 0.70-1.30 [facility] Comment on above: The validity of the calculated GFR & GFRAA in patients over 70 years has not been determined. Clinical correlation is essential. Serum or plasma urea nitroge n measurement (mass/volume)Ordered By: Dr. Hogan on 11-23-2022 Urea nitrogen [Mass/Vol] 44 mg/dL 7-18 [facility] Thin prep Papanicolaou smear with manual screeningOrdered By: Dr. Hogan on 11-23-2022 Thin prep Papanicolaou smear with manual screening 5 5-15 [facility] Absolute lymphocyte countOrd ered By: Dr. Ibarra on 11-22-2022 Lymphocytes Auto (Unsp spec) [#/Vol] 1.65 10*3/uL 0.83-4.51 [facility] Basophil percentageOrdered B y: Dr. Ibarra on 11-22-2022 Basophils/100 WBC (Bld) 0.5 % 0-1 [facility] Eosinophils/100 WBC (Bld) 1.9 % 0-5 [facility] Neutrophils (Bld) [#/Vol] 2.2 10*3/uL 2.0-7.7 [facility] Neutrophils/100 WBC (Bld) 50.8 % 47-70 [facility] WBC (Bld) [#/Vol] 4.3 10*3/uL 4.4-11.0 [facility] Blood erythrocytes count (nu mber/volume)Ordered By: Dr. Ibarra on 11-22-2022 RBC (Bld) [#/Vol] 2.55 10*6/uL 4.6-6.2 [facility] Blood hemoglobin measurement (mass/volume)Ordered By: Dr. Ibarra on 11-22-2022 Hemoglobin (Bld) [Mass/Vol] 7.7 g/dL 13.0-16.5 [facility] Blood lymphocytes/100 leukoc ytesOrdered By: Dr. Ibarra on 11-22-2022 Lymphocytes/100 WBC (Bld) 38.6 % 19-41 [facility] Blood monocytes/100 leukocyt esOrdered By: Dr. Ibarra on 11-22-2022 Monocytes/100 WBC (Bld) 6.8 % 0-10 [facility] Blood platelet mean volumeOr dered By: Dr. Ibarra on 11-22-2022 Platelet mean volume (Bld) [Entitic vol] 10.2 fL 6.2-12.0 [facility] Determination of erythrocyte mean corpuscular volume (MCV)Ordered By: Dr. Ibarra on 11-22-2022 MCV (RBC) [Entitic vol] 89.8 fL 80-94 [facility] Hematocrit Auto (Bld) [Volum e fraction]Ordered By: Dr. Ibarra on 11-22-2022 Hematocrit (Bld) [Volume fraction] 22.9 % 40-54 [facility] Laboratory - Hematology and Cell countsOrdered By: Dr. Ibarra on 11-22-2022 Erythrocyte distribution width (RBC) [Entitic vol] 42.5 fL 35.1-43.9 [facility] Erythrocyte distribution width (RBC) [Ratio] 13.2 % 11.6-14.6 [facility] Immature granulocytes/100 WBC (Bld) 1.400 % 0.0-0.9 [facility] Comment on above: IG% - Immature Granu locytes (promyelocytes, myelocytes and metamyelocytes) > 1% indicates that a LEFT SHIFT is Present. MCH (RBC) [Entitic mass] 30.2 pg 27.0-32.0 [facility] Nucleated RBC/100 WBC (Bld) [Ratio] 0 % 0-5 [facility] MCHC Auto (RBC) [Mass/Vol]Or dered By: Dr. Ibarra on 11-22-2022 MCHC (RBC) [Mass/Vol] 33.6 g/dL 32-36 [facility] Platelets bldOrdered By: Dr. Ibarra on 11-22-2022 Platelets (Bld) [#/Vol] 142 10*3/uL 150-450 [facility] No Panel InformationOrdered By: Dr. Paulson on 11-02-2022 Carbamazepine (Tegretol) Level 8.5 ug/mL 4.0-12.0 [facility] Absolute lymphocyte countOrd ered By: Dr. Ibarra on 10-27-2022 Lymphocytes Auto (Unsp spec) [#/Vol] 1.81 10*3/uL 0.83-4.51 [facility] Basophil percentageOrdered B y: Dr. Ibarra on 10-27-2022 Basophils/100 WBC (Bld) 0.4 % 0-1 [facility] Bilirubin [Mass/Vol] 0.30 mg/dL 0.20-1.00 [facility] Comment on above: For patients on eltr ombopag therapy, use of Dimension [place] TBIL is not recommended. Chloride [Moles/Vol] 102 mmol/L 98-107 [facility] Eosinophils/100 WBC (Bld) 1.2 % 0-5 [facility] Glucose [Mass/Vol] 309 mg/dL 74-106 [facility] Comment on above: Glucose result great er than or equal to 200 mg/dLsuggests DIABETES MELLITUS per A.D.A. criteria. LDH [Catalytic activity/Vol] 166 U/L 87-241 [facility] Neutrophils (Bld) [#/Vol] 3.4 10*3/uL 2.0-7.7 [facility] Neutrophils/100 WBC (Bld) 60.7 % 47-70 [facility] Potassium [Moles/Vol] 5.0 mmol/L 3.5-5.1 [facility] Protein [Mass/Vol] 6.9 g/dL 6.4-8.2 [facility] Sodium [Moles/Vol] 132 mmol/L 136-145 [facility] WBC (Bld) [#/Vol] 5.7 10*3/uL 4.4-11.0 [facility] Blood erythrocytes count (nu mber/volume)Ordered By: Dr. Ibarra on 10-27-2022 RBC (Bld) [#/Vol] 2.95 10*6/uL 4.6-6.2 [facility] Blood hemoglobin measurement (mass/volume)Ordered By: Dr. Ibarra on 10-27-2022 Hemoglobin (Bld) [Mass/Vol] 8.9 g/dL 13.0-16.5 [facility] Blood lymphocytes/100 leukoc ytesOrdered By: Dr. Ibarra on 10-27-2022 Lymphocytes/100 WBC (Bld) 32.0 % 19-41 [facility] Blood monocytes/100 leukocyt esOrdered By: Dr. Ibarra on 10-27-2022 Monocytes/100 WBC (Bld) 5.0 % 0-10 [facility] Blood platelet mean volumeOr dered By: Dr. Ibarra on 10-27-2022 Platelet mean volume (Bld) [Entitic vol] 9.5 fL 6.2-12.0 [facility] Determination of erythrocyte mean corpuscular volume (MCV)Ordered By: Dr. Ibarra on 10-27-2022 MCV (RBC) [Entitic vol] 87.8 fL 80-94 [facility] Erythrocyte sedimentation ra teOrdered By: Dr. Ibarra on 10-27-2022 ESR (Bld) [Velocity] 24 mm/h High 0-20 [facility] Hematocrit Auto (Bld) [Volum e fraction]Ordered By: Dr. Ibarra on 10-27-2022 Hematocrit (Bld) [Volume fraction] 25.9 % 40-54 [facility] Hemoglobin in reticulocytes (mass per reticulocyte)Ordered By: Dr. Ibarra on 10-27-2022 Hemoglobin (Reticulocytes) [Entitic mass] 33.9 pg 30-35 [facility] Interpretation of serum or p lasma protein pattern by immunofixation (narrative resultOrdered By: Dr. Ibarra on 10-27-2022 Protein Fractions Immunofixation Rocco [Interp] See comment [facility] Comment on above: NOT OBSERVED Iron measurement (mass/mass) Ordered By: Dr. Ibarra on 10-27-2022 Iron (Unsp spec) [Mass/Mass] 81 ug/dL 65-175 [facility] Laboratory - Chemistry and C hemistry - challengeOrdered By: Dr. Ibarra on 10-27-2022 ALP [Catalytic activity/Vol] 59 U/L 45-117 [facility] ALT [Catalytic activity/Vol] 17 U/L 16-61 [facility] CO2 [Moles/Vol] 23.0 mmol/L 21.0-32.0 [facility] Cobalamin (Vitamin B12) [Mass/Vol] 432 pg/mL 211-911 [facility] Urea nitrogen/Creatinine [Mass ratio] 15.4 mg/mg 10-20 [facility] Laboratory - Hematology and Cell countsOrdered By: Dr. Ibarra on 10-27-2022 Erythrocyte distribution width (RBC) [Entitic vol] 41.5 fL 35.1-43.9 [facility] Erythrocyte distribution width (RBC) [Ratio] 13.1 % 11.6-14.6 [facility] Immature granulocytes/100 WBC (Bld) 0.700 % 0.0-0.9 [facility] Comment on above: IG% - Immature Granu locytes (promyelocytes, myelocytes and metamyelocytes) > 1% indicates that a LEFT SHIFT is Present. MCH (RBC) [Entitic mass] 30.2 pg 27.0-32.0 [facility] Nucleated RBC/100 WBC (Bld) [Ratio] 0 % 0-5 [facility] MCHC Auto (RBC) [Mass/Vol]Or dered By: Dr. Ibarra on 03-02-2023 MCHC (RBC) [Mass/Vol] 34.4 g/dL 32-36 [facility] No Panel InformationOrdered By: Dr. Ibarra on 10-27-2022 Addendum Document Comment . [facility] Comment on above: Protein electrophore sis scan will follow via computer,mail, or commercial airplane pilot delivery. Estimated Creatinine Clearance Calc 33.67 ml/min [facility] Estimated GFR (MDRD) Amer 33 mL/min >60 [facility] Comment on above: GFR Calc Estimated GFR (MDRD) Non-Af Amer 28 mL/min >60 [facility] Comment on above: Non- GFR Calc Free Lambda Light Chains, Quant 31.2 mg/L High 5.7-26.3 [facility] Immature Reticulocyte Fraction 7.90 % 3.00-15.90 [facility] Reticulocyte Count 1.45 % 0.5-1.5 [facility] Total Iron Binding Capacity 287 ug/dL 250-450 [facility] Platelets bldOrdered By: Dr. Ibarra on 10-27-2022 Platelets (Bld) [#/Vol] 190 10*3/uL 150-450 [facility] Serum [id number] measu rement by electrophoresisOrdered By: Dr. Ibarra on 10-27-2022 Alpha 1 globulin Elph [Mass/Vol] 0.2 g/dL 0.0-0.4 [facility] Alpha 1 globulin Elph [Mass/Vol] 1.1 g/dL High 0.4-1.0 [facility] Serum globulin measurement ( mass/volume)Ordered By: Dr. Ibarra on 10-27-2022 Globulin (S) [Mass/Vol] 3.1 g/dL 2.2-3.9 [facility] Serum immunoglobulin kappa l ight chains/immunoglobulin lambda light chains mass ratioOrdered By: Dr. Ibarra on 10-27-2022 Immunoglobulin light chains.kappa/Immunoglob ulin light chains.lambda (S) [Mass ratio] 2.23 High 0.26-1.65 [facility] Serum or plasma IgA measurem ent (mass/volume)Ordered By: Dr. Ibarra on 10-27-2022 IgA [Mass/Vol] 135 mg/dL 90-386 [facility] Serum or plasma IgG measurem ent (mass/volume)Ordered By: Dr. Ibarra on 10-27-2022 IgG [Mass/Vol] 918 mg/dL 603-1613 [facility] Serum or plasma IgM measurem ent (mass/volume)Ordered By: Dr. Ibarra on 10-27-2022 IgM [Mass/Vol] 84 mg/dL 20-172 [facility] Serum or plasma albumin abhi urement (mass/volume)Ordered By: Dr. Ibarra on 10-27-2022 Albumin [Mass/Vol] 3.2 g/dL 2.9-4.4 [facility] Serum or plasma albumin/glob ulin mass ratioOrdered By: Dr. Ibarra on 10-27-2022 Albumin/Globulin [Mass ratio] 0.9 {ratio} 0.9-2.4 [facility] Serum or plasma beta globuli n measurement by electrophoresis (mass/volume)Ordered By: Dr. Ibarra on 10-27-2022 Beta globulin Elph [Mass/Vol] 0.9 g/dL 0.7-1.3 [facility] Serum or plasma calcium abhi urement (mass/volume)Ordered By: Dr. Ibarra on 10-27-2022 Calcium [Mass/Vol] 8.4 mg/dL 8.5-10.1 [facility] Serum or plasma carcinoembry onic antigen measurement (mass/volume)Ordered By: Dr. Ibarra on 10-27-2022 Carcinoembryonic Ag [Mass/Vol] 1.5 ng/mL 0.0-4.7 [facility] Comment on above: Nonsmokers <3.9 Smok ers <5.6[employer] Electrochemiluminescence Immunoassay(ECLIA)Values obtained with different assay methods or kitscannot be used interchangeably. Results cannot beinterpreted as absolute evidence of the presence orabsence of malignant disease. Serum or plasma creatinine m easurement (mass/volume)Ordered By: Dr. Ibarra on 10-27-2022 Creatinine [Mass/Vol] 2.59 mg/dL 0.70-1.30 [facility] Comment on above: The validity of the calculated GFR & GFRAA in patients over 70 years has not been determined. Clinical correlation is essential. Serum or plasma erythropoiet in (EPO) measurement (units/volume)Ordered By: Dr. Ibarra on 10-27-2022 Erythropoietin (EPO) Qn 8.1 mIU/mL 2.6-18.5 [facility] Comment on above: [employer] I/O el DxI 800 Immunoassay SystemValues obtained with different assay methods or kits cannotbe used interchangeably. Results cannot be interpreted asabsolute evidence of the presence or absence of malignantdisease.Performed at: [address] [id number] Director: Bradley Peña PhD, Phone: [phone] Serum or plasma ferritin ngozi surement (mass/volume)Ordered By: Dr. Ibarra on 10-27-2022 Ferritin [Mass/Vol] 122 ng/mL 26-388 [facility] Serum or plasma folate measu rement (mass/volume)Ordered By: Dr. Ibarra on 10-27-2022 Folate [Mass/Vol] 15.00 ng/mL 3.1-55.4 [facility] Serum or plasma gamma globul in measurement by electrophoresis (mass/volume)Ordered By: Dr. Ibarra on 10-27-2022 Gamma globulin Elph [Mass/Vol] 0.9 g/dL 0.4-1.8 [facility] Serum or plasma immunoelectr ophoresis interpretation (nominal result)Ordered By: Dr. Ibarra on 10-27-2022 Interpretation IEP [Interp] Comment . [facility] Comment on above: No monoclonality det ected. Serum or plasma immunoglobul in kappa light chains measurement (mass/volume)Ordered By: Dr. Ibrara on 10-27-2022 Immunoglobulin light chains.kappa [Mass/Vol] 69.5 mg/L High 3.3-19.4 [facility] Serum or plasma iron saturat ion measurement (mass fraction)Ordered By: Dr. Ibarra on 10-27-2022 Iron saturation [Mass fraction] 28.2 % 15.0-55.0 [facility] Serum or plasma urea nitroge n measurement (mass/volume)Ordered By: Dr. Ibarra on 10-27-2022 Urea nitrogen [Mass/Vol] 40 mg/dL 7-18 [facility] Thin prep Papanicolaou smear with manual screeningOrdered By: Dr. Ibarra on 10-27-2022 Thin prep Papanicolaou smear with manual screening 13 U/L 15-37 [facility] Thin prep Papanicolaou smear with manual screening 7 5-15 [facility] Thin prep Papanicolaou smear with manual screening 1.1 0.7-1.7 [facility] Total protein bloodOrdered B y: Dr. Ibarra on 10-27-2022 Protein [Mass/Vol] 6.3 g/dL 6.0-8.5 [facility] Basophil percentageOrdered B y: Juana Harvey on 09-29-2022 Basophil percentage 4.3 mg/dL 2.5-4.9 [facility] Chloride [Moles/Vol] 107 mmol/L 98-107 [facility] Glucose [Mass/Vol] 224 mg/dL 74-106 [facility] Comment on above: Glucose result great er than or equal to 200 mg/dLsuggests DIABETES MELLITUS per A.D.A. criteria. Potassium [Moles/Vol] 4.9 mmol/L 3.5-5.1 [facility] Sodium [Moles/Vol] 138 mmol/L 136-145 [facility] WBC (Bld) [#/Vol] 4.4 10*3/uL 4.4-11.0 [facility] Blood erythrocytes count (nu mber/volume)Ordered By: Juana Harvey on 09-29-2022 RBC (Bld) [#/Vol] 2.84 10*6/uL 4.6-6.2 [facility] Blood hemoglobin measurement (mass/volume)Ordered By: Juana Harvey on 09-29-2022 Hemoglobin (Bld) [Mass/Vol] 8.8 g/dL 13.0-16.5 [facility] Blood platelet mean volumeOr dered By: Juana Harvey on 09-29-2022 Platelet mean volume (Bld) [Entitic vol] 10.0 fL 6.2-12.0 [facility] Determination of erythrocyte mean corpuscular volume (MCV)Ordered By: Juana Harvey on 09-29-2022 MCV (RBC) [Entitic vol] 91.9 fL 80-94 [facility] Hematocrit Auto (Bld) [Volum e fraction]Ordered By: Juana Harvey on 09-29-2022 Hematocrit (Bld) [Volume fraction] 26.1 % 40-54 [facility] Laboratory - Chemistry and C hemistry - challengeOrdered By: Juana Harvey on 09-29-2022 CO2 [Moles/Vol] 25.0 mmol/L 21.0-32.0 [facility] Urea nitrogen/Creatinine [Mass ratio] 13.3 mg/mg 10-20 [facility] Laboratory - Hematology and Cell countsOrdered By: Juana Harvey on 09-29-2022 Erythrocyte distribution width (RBC) [Entitic vol] 41.8 fL 35.1-43.9 [facility] Erythrocyte distribution width (RBC) [Ratio] 12.6 % 11.6-14.6 [facility] MCH (RBC) [Entitic mass] 31.0 pg 27.0-32.0 [facility] MCHC Auto (RBC) [Mass/Vol]Or dered By: Juana Harvey on 09-29-2022 MCHC (RBC) [Mass/Vol] 33.7 g/dL 32-36 [facility] No Panel InformationOrdered By: Juana Harvey on 09-29-2022 Estimated GFR (MDRD) Amer 41 mL/min >60 [facility] Comment on above: GFR Calc Estimated GFR (MDRD) Non-Af Amer 34 mL/min >60 [facility] Comment on above: Non- GFR Calc Parathyroid Hormone (Intact) 118.7 pg/mL 18.4-80.1 [facility] Vitamin D 25-Hydroxy 10.3 ng/mL [facility] Comment on above: Vitamin D 25(OH) Sta tus Range Deficiency <20 ng/mL (50nmol/L) Insufficiency 20 - 30 ng/mL (50 - 75 nmol/L) Sufficiency 30 - 100 ng/mL (75 - 250 nmol/L) Toxicity >100 ng/mL (>250 nmol/L) Platelets bldOrdered By: Josh Harvey on 09-29-2022 Platelets (Bld) [#/Vol] 133 10*3/uL 150-450 [facility] Serum or plasma albumin abhi urement (mass/volume)Ordered By: Juana Harvey on 09-29-2022 Albumin [Mass/Vol] 2.9 g/dL 3.2-5.0 [facility] Serum or plasma calcium abhi urement (mass/volume)Ordered By: Juana Harvey on 09-29-2022 Calcium [Mass/Vol] 8.8 mg/dL 8.5-10.1 [facility] Serum or plasma creatinine m easurement (mass/volume)Ordered By: Juana Harvey on 09-29-2022 Creatinine [Mass/Vol] 2.18 mg/dL 0.70-1.30 [facility] Comment on above: The validity of the calculated GFR & GFRAA in patients over 70 years has not been determined. Clinical correlation is essential. Serum or plasma urea nitroge n measurement (mass/volume)Ordered By: Juana Harvey on 09-29-2022 Urea nitrogen [Mass/Vol] 29 mg/dL 7-18 [facility] Urine creatinine measurement (mass/volume)Ordered By: Juana Harvey on 09-29-2022 Creatinine (U) [Mass/Vol] 43.90 mg/dL NO RANGE EST. [facility] Urine protein measurement (m ass/volume)Ordered By: Juana Harvey on 09-29-2022 Protein (U) [Mass/Vol] 388.9 mg/dL 0.0-11.8 [facility] Urine protein/creatinine mas s ratioOrdered By: Juana Harvey on 09-29-2022 Protein/Creatinine (U) [Mass ratio] 8859 mg/g CRE 0-200 [facility] GLUCOSE, BLOOD (POC)on 09-20 Glucose [Mass/Vol] 264 mg/dL Abnormal 74 - 99 mg/dL [facility] HEMOGLOBIN A1C (POC)on 09-20 HbA1c (Bld) [Mass fraction] 10.2 % Abnormal 4.2 - 5.6 % [facility] HEMOGLOBIN A1C (POC)on 06-17 HbA1c (Bld) [Mass fraction] 9.2 % Abnormal 4.2 - 5.6 % [facility] Basophil percentageon 2021 Basophil percentage 3.6 mg/dL 2.5-4.9 [facility] Work Phone: Comment on above: Slight Lipemia, Resu lt may be falsely increased. Chloride [Moles/Vol] 101 mmol/L 98-107 [facility] Work Phone: Glucose [Mass/Vol] 461 mg/dL 74-106 [facility] Work Phone: Comment on above: Slight Lipemia, Resu lt may be falsely increased.Glucose result greater than or equal to 200 mg/dLsuggests DIABETES MELLITUS per A.D.A. criteria. Potassium [Moles/Vol] 5.0 mmol/L 3.5-5.1 [facility] Work Phone: Comment on above: Moderate Hemolysis, Result may be falsely increased.-Slight Lipemia, Result may be falsely increased. Sodium [Moles/Vol] 133 mmol/L 136-145 [facility] Work Phone: WBC (Bld) [#/Vol] 5.7 10*3/uL 4.4-11.0 [facility] Work Phone: Blood erythrocytes count (nu mber/volume)on 05-19-2022 RBC (Bld) [#/Vol] 2.97 10*6/uL 4.6-6.2 [facility] Work Phone: Blood hemoglobin measurement (mass/volume)on 05-19-2022 Hemoglobin (Bld) [Mass/Vol] 9.4 g/dL 13.0-16.5 [facility] Work Phone: Blood platelet mean volumeon 05-19-2022 Platelet mean volume (Bld) [Entitic vol] 10.7 fL 6.2-12.0 [facility] Work Phone: Determination of erythrocyte mean corpuscular volume (MCV)on 05-19-2022 MCV (RBC) [Entitic vol] 90.2 fL 80-94 [facility] Work Phone: Hematocrit Auto (Bld) [Volum e fraction]on 05-19-2022 Hematocrit (Bld) [Volume fraction] 26.8 % 40-54 [facility] Work Phone: Laboratory - Chemistry and C hemistry - challengeon 05-19-2022 CO2 [Moles/Vol] 23.0 mmol/L 21.0-32.0 [facility] Work Phone: Comment on above: Slight Lipemia, Resu lt may be falsely increased. Urea nitrogen/Creatinine [Mass ratio] 19.2 mg/mg 10-20 [facility] Work Phone: Laboratory - Hematology and Cell countson 05-19-2022 Erythrocyte distribution width (RBC) [Entitic vol] 41.3 fL 35.1-43.9 [facility] Work Phone: Erythrocyte distribution width (RBC) [Ratio] 12.7 % 11.6-14.6 [facility] Work Phone: MCH (RBC) [Entitic mass] 31.6 pg 27.0-32.0 [facility] Work Phone: MCHC Auto (RBC) [Mass/Vol]on 05-19-2022 MCHC (RBC) [Mass/Vol] 35.1 g/dL 32-36 [facility] Work Phone: No Panel Informationon 05-19 Estimated GFR (MDRD) Amer 40 mL/min >60 [facility] Work Phone: Comment on above: GFR Calc Estimated GFR (MDRD) Non-Af Amer 33 mL/min >60 [facility] Work Phone: Comment on above: Non- GFR Calc Parathyroid Hormone (Intact) 96.0 pg/mL 18.4-80.1 [facility] Work Phone: Vitamin D 25-Hydroxy 9.9 ng/mL [facility] Work Phone: Comment on above: Vitamin D 25(OH) Sta tus Range Deficiency <20 ng/mL (50nmol/L) Insufficiency 20 - 30 ng/mL (50 - 75 nmol/L) Sufficiency 30 - 100 ng/mL (75 - 250 nmol/L) Toxicity >100 ng/mL (>250 nmol/L) Platelets bldon 05-19-2022 Platelets (Bld) [#/Vol] 188 10*3/uL 150-450 [facility] Work Phone: Serum or plasma albumin abhi urement (mass/volume)on 05-19-2022 Albumin [Mass/Vol] 3.2 g/dL 3.2-5.0 [facility] Work Phone: Serum or plasma calcium abhi urement (mass/volume)on 05-19-2022 Calcium [Mass/Vol] 8.8 mg/dL 8.5-10.1 [facility] Work Phone: Comment on above: Slight Lipemia, Resu lt may be falsely increased. Serum or plasma creatinine m easurement (mass/volume)on 05-19-2022 Creatinine [Mass/Vol] 2.24 mg/dL 0.70-1.30 [facility] Work Phone: Comment on above: Slight Lipemia, Resu lt may be falsely increased.The validity of the calculated GFR & GFRAA in patients over 70 years has not been determined. Clinical correlation is essential. Serum or plasma urea nitroge n measurement (mass/volume)on 05-19-2022 Urea nitrogen [Mass/Vol] 43 mg/dL 7-18 [facility] Work Phone: Urine creatinine measurement (mass/volume)on 05-19-2022 Creatinine (U) [Mass/Vol] 35.10 mg/dL NO RANGE EST. [facility] Work Phone: Urine protein measurement (m ass/volume)on 05-19-2022 Protein (U) [Mass/Vol] 199.7 mg/dL 0.0-11.8 [facility] Work Phone: Urine protein/creatinine mas s ratioon 05-19-2022 Protein/Creatinine (U) [Mass ratio] 5689 mg/g CRE 0-200 [facility] Work Phone: Absolute lymphocyte countOrd ered By: Maureen Campbell on 05-03-2022 Lymphocytes Auto (Unsp spec) [#/Vol] 1.61 10*3/uL 0.83-4.51 [facility] Basophil percentageOrdered B y: Maureen Campbell on 05-03-2022 Basophils/100 WBC (Bld) 0.5 % 0-1 [facility] Bilirubin [Mass/Vol] 0.30 mg/dL 0.20-1.00 [facility] Comment on above: Slight Lipemia, Resu lt may be falsely increased. For patients on eltrombopag therapy, use of Dimension [place] TBIL is not recommended. Chloride [Moles/Vol] 100 mmol/L 98-107 [facility] Eosinophils/100 WBC (Bld) 1.1 % 0-5 [facility] Glucose [Mass/Vol] 357 mg/dL 74-106 [facility] Comment on above: Slight Lipemia, Resu lt may be falsely increased.Glucose result greater than or equal to 200 mg/dLsuggests DIABETES MELLITUS per A.D.A. criteria. Neutrophils (Bld) [#/Vol] 3.4 10*3/uL 2.0-7.7 [facility] Neutrophils/100 WBC (Bld) 61.7 % 47-70 [facility] Potassium [Moles/Vol] 4.9 mmol/L 3.5-5.1 [facility] Comment on above: Moderate Hemolysis, Result may be falsely increased.-Slight Lipemia, Result may be falsely increased. Protein [Mass/Vol] 7.0 g/dL 6.4-8.2 [facility] Comment on above: Slight Lipemia, Resu lt may be falsely increased. Sodium [Moles/Vol] 131 mmol/L 136-145 [facility] WBC (Bld) [#/Vol] 5.5 10*3/uL 4.4-11.0 [facility] Blood erythrocytes count (nu mber/volume)Ordered By: Maureen Campbell on 05-03-2022 RBC (Bld) [#/Vol] 3.10 10*6/uL 4.6-6.2 [facility] Blood hemoglobin measurement (mass/volume)Ordered By: Maureen Campbell on 05-03-2022 Hemoglobin (Bld) [Mass/Vol] 9.6 g/dL 13.0-16.5 [facility] Blood lymphocytes/100 leukoc ytesOrdered By: Maureen Campbell on 05-03-2022 Lymphocytes/100 WBC (Bld) 29.4 % 19-41 [facility] Blood monocytes/100 leukocyt esOrdered By: [facility] Shannan on 05-03-2022 Monocytes/100 WBC (Bld) 6.2 % 0-10 [facility] Blood platelet mean volumeOr dered By: Maureen Campbell on 05-03-2022 Platelet mean volume (Bld) [Entitic vol] 10.0 fL 6.2-12.0 [facility] Determination of erythrocyte mean corpuscular volume (MCV)Ordered By: Maureen Campbell on 05-03-2022 MCV (RBC) [Entitic vol] 87.1 fL 80-94 [facility] Hematocrit Auto (Bld) [Volum e fraction]Ordered By: Maureen Campbell on 05-03-2022 Hematocrit (Bld) [Volume fraction] 27.0 % 40-54 [facility] Laboratory - Chemistry and C hemistry - challengeOrdered By: [facility] on 05-03-2022 ALP [Catalytic activity/Vol] 67 U/L 45-117 [facility] ALT [Catalytic activity/Vol] 23 U/L 16-61 [facility] Comment on above: Slight Lipemia, Resu lt may be falsely increased. CO2 [Moles/Vol] 25.0 mmol/L 21.0-32.0 [facility] Comment on above: Slight Lipemia, Resu lt may be falsely increased. Globulin (S) [Mass/Vol] 4.0 g/dL 2.2-4.2 [facility] Urea nitrogen/Creatinine [Mass ratio] 16.6 mg/mg 10-20 [facility] Laboratory - Hematology and Cell countsOrdered By: Maureen Campbell on 05-03-2022 Erythrocyte distribution width (RBC) [Entitic vol] 40.6 fL 35.1-43.9 [facility] Erythrocyte distribution width (RBC) [Ratio] 12.9 % 11.6-14.6 [facility] Immature granulocytes/100 WBC (Bld) 1.100 % 0.0-0.9 [facility] Comment on above: IG% - Immature Granu locytes (promyelocytes, myelocytes and metamyelocytes) > 1% indicates that a LEFT SHIFT is Present. MCH (RBC) [Entitic mass] 31.0 pg 27.0-32.0 [facility] Nucleated RBC/100 WBC (Bld) [Ratio] 0 % 0-5 [facility] MCHC Auto (RBC) [Mass/Vol]Or dered By: Maureen Campbell on 05-03-2022 MCHC (RBC) [Mass/Vol] 35.6 g/dL 32-36 [facility] No Panel InformationOrdered By: Maureen Campbell on 05-03-2022 Estimated Creatinine Clearance Calc 56.18 ml/min [facility] Estimated GFR (MDRD) Amer 60 mL/min >60 [facility] Comment on above: GFR Calc Estimated GFR (MDRD) Non-Af Amer 49 mL/min >60 [facility] Comment on above: Non- GFR Calc Platelets bldOrdered By: Georgina Campbell on 05-03-2022 Platelets (Bld) [#/Vol] 165 10*3/uL 150-450 [facility] Serum or plasma albumin abhi urement (mass/volume)Ordered By: Maureen Campbell on 05-03-2022 Albumin [Mass/Vol] 3.0 g/dL 3.2-5.0 [facility] Serum or plasma albumin/glob ulin mass ratioOrdered By: Maureen Campbell on 05-03-2022 Albumin/Globulin [Mass ratio] 0.8 {ratio} 0.9-2.4 [facility] Serum or plasma calcium abhi urement (mass/volume)Ordered By: Maureen Campbell on 05-03-2022 Calcium [Mass/Vol] 8.3 mg/dL 8.5-10.1 [facility] Comment on above: Slight Lipemia, Resu lt may be falsely increased. Serum or plasma carcinoembry onic antigen measurement (mass/volume)Ordered By: Maureen Campbell on 05-03-2022 Carcinoembryonic Ag [Mass/Vol] 1.7 ng/mL 0.0-4.7 [facility] Comment on above: Nonsmokers <3.9 Smok ers <5.6[employer] Electrochemiluminescence Immunoassay(ECLIA)Values obtained with different assay methods or kitscannot be used interchangeably. Results cannot beinterpreted as absolute evidence of the presence orabsence of malignant disease.Performed at: - [facility] [id number] Director: Bradley Peña PhD, Phone: [phone] Serum or plasma creatinine m easurement (mass/volume)Ordered By: Maureen Campbell on 05-03-2022 Creatinine [Mass/Vol] 1.57 mg/dL 0.70-1.30 [facility] Comment on above: Slight Lipemia, Resu lt may be falsely increased.The validity of the calculated GFR & GFRAA in patients over 70 years has not been determined. Clinical correlation is essential. Serum or plasma urea nitroge n measurement (mass/volume)Ordered By: Maureen Campbell on 05-03-2022 Urea nitrogen [Mass/Vol] 26 mg/dL 03-14 [facility] Comment on above: Slight Lipemia, Resu lt may be falsely increased. Thin prep Papanicolaou smear with manual screeningOrdered By: Maureen Campbell on 05-03-2022 Thin prep Papanicolaou smear with manual screening 14 U/L [facility] Comment on above: Moderate Hemolysis, Result may be falsely increased.-Slight Lipemia, Result may be falsely increased. Thin prep Papanicolaou smear with manual screening 6 01-09 [facility] XR TOE AP/LAT/OBL LEFTon [facility] CBC W Auto Differential pane l (Bld)on 02-04-2022 Basophils (Bld) [#/Vol] 0.05 10*3/uL Normal <0.11 [facility] Comment on above: Order Comment: Speci men Type: BLOOD SPECIMEN Ordering Facility: [facility] Address: [address] [place] [address] Performed By: #### 5 7021-8 #### [facility] CLIA [id number] [address] [place] [address] [place] Basophils/100 WBC (Bld) 0.8 % Normal [facility] Comment on above: Order Comment: Speci men Type: BLOOD SPECIMEN Ordering Facility: [facility] Address: [address] [place] [address] Performed By: #### 5 7021-8 #### [facility] CLIA [id number] [address] [place] Differential cell count method Nom (Bld) Auto Normal [facility] Comment on above: Order Comment: Speci men Type: BLOOD SPECIMEN Ordering Facility: [facility] Address: [address] [place] [address] Performed By: #### 5 7021-8 #### [facility] CLIA [id number] [address] Eosinophils (Bld) [#/Vol] 0.06 10*3/uL Normal <0.46 [facility] Comment on above: Order Comment: Speci men Type: BLOOD SPECIMEN Ordering Facility: [facility] Address: [address] [place] [address] Performed By: #### 5 7021-8 #### [facility] CLIA [id number] [address] Eosinophils/100 WBC (Bld) 1.0 % Normal [facility] Comment on above: Order Comment: Speci men Type: BLOOD SPECIMEN Ordering Facility: [facility] Address: [address] [place] [address] Performed By: #### 5 7021-8 #### [facility] CLIA [id number] [address] Erythrocyte distribution width (RBC) [Ratio] 12.2 % Normal 11.5-15.0 [facility] Comment on above: Order Comment: Speci men Type: BLOOD SPECIMEN Ordering Facility: [facility] Address: [address] [place] [address] Performed By: #### 5 7021-8 #### [facility] CLIA [id number] [address] [place] Hematocrit (Bld) [Volume fraction] 25.1 % Low 39.0-51.0 [facility] Comment on above: Order Comment: Speci men Type: BLOOD SPECIMEN Ordering Facility: [facility] Address: [address] [place] [address] Performed By: #### 5 7021-8 #### [facility] CLIA [id number] [address] Hemoglobin (Bld) [Mass/Vol] 8.5 g/dL Low 13.0-17.0 [facility] Comment on above: Order Comment: Speci men Type: BLOOD SPECIMEN Ordering Facility: [facility] Address: [address] [place] [address] Performed By: #### 5 7021-8 #### [facility] CLIA [id number] [address] IMMATURE GRAN % 1.0 % Normal [facility] Comment on above: Order Comment: Speci men Type: BLOOD SPECIMEN Ordering Facility: [facility] Address: [address] [place] [address] Performed By: #### 5 7021-8 #### [facility] CLIA [id number] [address] IMMATURE GRAN ABS 0.06 k/uL Normal <0.10 [facility] Comment on above: Order Comment: Speci men Type: BLOOD SPECIMEN Ordering Facility: [facility] Address: [address] [place] [address] Performed By: #### 5 7021-8 #### [facility] CLIA [id number] [address] Lymphocytes (Bld) [#/Vol] 1.67 10*3/uL Normal 1.00-4.00 [facility] Comment on above: Order Comment: Speci men Type: BLOOD SPECIMEN Ordering Facility: [facility] Address: [address] [place] [address] Performed By: #### 5 7021-8 #### [facility] CLIA [id number] [address] Lymphocytes/100 WBC (Bld) 26.8 % Normal [facility] Comment on above: Order Comment: Speci men Type: BLOOD SPECIMEN Ordering Facility: [facility] Address: [address] [place] [address] Performed By: #### 5 7021-8 #### [facility] CLIA [id number] [address] [place] MCH (RBC) [Entitic mass] 28.9 pg Normal 26.0-34.0 [facility] Comment on above: Order Comment: Speci men Type: BLOOD SPECIMEN Ordering Facility: [facility] Address: [address] [place] [address] Performed By: #### 5 7021-8 #### [facility] CLIA [id number] [address] [place] MCHC (RBC) [Mass/Vol] 33.9 g/dL Normal 30.5-36.0 [facility] Comment on above: Order Comment: Speci men Type: BLOOD SPECIMEN Ordering Facility: [facility] Address: [address] [place] [address] Performed By: #### 5 7021-8 #### [facility] CLIA [id number] [address] [place] MCV (RBC) [Entitic vol] 85.4 fL Normal 80.0-100.0 [facility] Comment on above: Order Comment: Speci men Type: BLOOD SPECIMEN Ordering Facility: [facility] Address: [address] [place] [address] Performed By: #### 5 7021-8 #### [facility] CLIA [id number] [address] [place] Monocytes (Bld) [#/Vol] 0.34 10*3/uL Normal <0.87 [facility] Comment on above: Order Comment: Speci men Type: BLOOD SPECIMEN Ordering Facility: [facility] Address: [address] [place] [address] Performed By: #### 5 7021-8 #### [facility] CLIA [id number] [address] [place] [address] [place] Monocytes/100 WBC (Bld) 5.4 % Normal [facility] Comment on above: Order Comment: Speci men Type: BLOOD SPECIMEN Ordering Facility: [facility] Address: [address] [place] [address] Performed By: #### 5 7021-8 #### [facility] CLIA [id number] [address] [place] [address] [place] Neutrophils (Bld) [#/Vol] 4.06 10*3/uL Normal 1.45-7.50 [facility] Comment on above: Order Comment: Speci men Type: BLOOD SPECIMEN Ordering Facility: [facility] Address: [address] [place] [address] Performed By: #### 5 7021-8 #### [facility] CLIA [id number] [address] [place] Neutrophils/100 WBC (Bld) 65.0 % Normal [facility] Comment on above: Order Comment: Speci men Type: BLOOD SPECIMEN Ordering Facility: [facility] Address: [address] [place] [address] Performed By: #### 5 7021-8 #### [facility] CLIA [id number] [address] [place] [address] [place] Nucleated RBC (Bld) [#/Vol] 10*3/uL Normal <0.01 [facility] Comment on above: Order Comment: Speci men Type: BLOOD SPECIMEN Ordering Facility: [facility] Address: [address] [place] [address] Performed By: #### 5 7021-8 #### [facility] CLIA [id number] [address] [place] [address] [place] Nucleated RBC/100 WBC (Bld) [Ratio] 0.0 /100 WBC Normal [facility] Comment on above: Order Comment: Speci men Type: BLOOD SPECIMEN Ordering Facility: [facility] Address: [address] [place] [address] Performed By: #### 5 7021-8 #### [facility] CLIA [id number] [address] [place] Platelet mean volume (Bld) [Entitic vol] 9.8 fL Normal 9.0-12.7 [facility] Comment on above: Order Comment: Speci men Type: BLOOD SPECIMEN Ordering Facility: [facility] Address: [address] [place] [address] Performed By: #### 5 7021-8 #### [facility] CLIA [id number] [address] [place] [address] [place] Platelets (Bld) [#/Vol] 222 10*3/uL Normal 150-400 [facility] Comment on above: Order Comment: Speci men Type: BLOOD SPECIMEN Ordering Facility: [facility] Address: [address] [place] [address] Performed By: #### 5 7021-8 #### [facility] CLIA [id number] [address] [place] RBC (Bld) [#/Vol] 2.94 10*6/uL Low 4.20-6.00 [facility] Comment on above: Order Comment: Speci men Type: BLOOD SPECIMEN Ordering Facility: [facility] Address: [address] [place] [address] Performed By: #### 5 7021-8 #### [facility] CLIA [id number] [address] WBC (Bld) [#/Vol] 6.24 10*3/uL Normal 3.70-11.00 [facility] Comment on above: Order Comment: Speci men Type: BLOOD SPECIMEN Ordering Facility: [facility] Address: [address] [place] [address] Performed By: #### 5 7021-8 #### [facility] CLIA [id number] [address] [place] CT BRAIN WO IVCONon 02-05-[address] BRAIN WO IVCON * * *Final Report* * * DATE OF EXAM: Feb 04 2022 1:12PM [facility] [id number] - CT BRAIN WO IVCON / PROCEDURE REASON: Transient ischemic attack (TIA) * * * * Physician Interpretation * * * * EXAMINATION: CT BRAIN WO IVCON CLINICAL HISTORY: Transient ischemic attack (TIA) complaints of extreme dizziness rapid onset spinning of the room TECHNIQUE: Serial axial images without IV contrast were obtained from the vertex to the foramen magnum. MQ: [id number]_3 CT Radiation dose: Integrated Dose-Length Product (DLP) for this visit = 638 mGy*cm CT Dose Reduction Employed: No dose reduction techniques were required COMPARISON: MRI pituitary 07/10/2012 RESULT: Post-operative change: None. Acute change: No evidence of an acute infarct or other acute parenchymal process. Hemorrhage: No evidence of acute intracranial hemorrhage. ECASS hemorrhagic transformation score: Not Applicable Mass Lesion / Mass Effect: There is no evidence of an intracranial mass or extraaxial fluid collection. No significant mass effect. Chronic change: None apparent. Parenchyma: Moderate Ventricles: Large amount of atrophy for the patient's age in the brain probably in the temporal and frontal regions bilaterally. Paranasal sinuses and skull base: The visualized paranasal sinuses are grossly clear. The skull base and imaged soft tissues are unremarkable. [employer] (topogram) images: No additional findings. IMPRESSION: 1. No intracranial hemorrhage or other acute intracranial abnormalities 2. Large amount of atrophy for the patient's age [employer] Team Member: [facility] Transcribe Date/Time: Feb 04 2022 1:28P Dictated by : BETZAIDA MOODY DO This examination was interpreted and the report reviewed and electronically signed by: BETZAIDA MOODY DO on Feb 04 2022 1:35PM EST [id number] Normal [facility] Comprehensive metabolic 2000 panelon 02-04-2022 Albumin [Mass/Vol] 3.9 g/dL Normal 3.9-4.9 [facility] Comment on above: Order Comment: Pat noriega Type: BLOOD SPECIMEN Ordering Facility: [facility] Address: [address] [place] [address] Performed By: #### 2 4323-8, DILAN #### [facility] CLIA [id number] [address] [place] [address] [place] ALP [Catalytic activity/Vol] 78 U/L Normal 38-113 [facility] Comment on above: Order Comment: Pat noriega Type: BLOOD SPECIMEN Ordering Facility: [facility] Address: [address] [place] [address] Performed By: #### 2 4323-8, DILAN #### [facility] CLIA [id number] [address] ALT [Catalytic activity/Vol] 17 U/L Normal 10-54 [facility] Comment on above: Order Comment: Speci men Type: BLOOD SPECIMEN Ordering Facility: [facility] Address: [address] [place] [address] Performed By: #### 2 4323-8, DILAN #### [facility] CLIA [id number] [address] [place] Anion gap [Moles/Vol] 10 mmol/L Normal 9-18 [facility] Comment on above: Order Comment: Speci men Type: BLOOD SPECIMEN Ordering Facility: [facility] Address: [address] [place] [address] Performed By: #### 2 4323-8, DILAN #### [facility] CLIA [id number] [address] AST [Catalytic activity/Vol] 12 U/L Low 14-40 [facility] Comment on above: Order Comment: Speci men Type: BLOOD SPECIMEN Ordering Facility: [facility] Address: [address] [place] [address] Performed By: #### 2 4323-8, DILAN #### [facility] CLIA [id number] [address] [place] Bilirubin [Mass/Vol] mg/dL Low 0.2-1.3 [facility] Comment on above: Order Comment: Speci men Type: BLOOD SPECIMEN Ordering Facility: [facility] Address: [address] [place] [address] Performed By: #### 2 4323-8, DILAN #### [facility] CLIA [id number] [address] Calcium [Mass/Vol] 8.8 mg/dL Normal 8.5-10.2 [facility] Comment on above: Order Comment: Speci men Type: BLOOD SPECIMEN Ordering Facility: [facility] Address: [address] [place] [address] Performed By: #### 2 4323-8, DILAN #### [facility] CLIA [id number] [address] [place] [address] [place] Chloride [Moles/Vol] 101 mmol/L Normal 97-105 [facility] Comment on above: Order Comment: Speci men Type: BLOOD SPECIMEN Ordering Facility: [facility] Address: [address] [place] [address] Performed By: #### 2 4323-8, DILAN #### [facility] CLIA [id number] [address] [place] [address] [place] CO2 [Moles/Vol] 24 mmol/L Normal 22-30 [facility] Comment on above: Order Comment: Speci men Type: BLOOD SPECIMEN Ordering Facility: [facility] Address: [address] [place] [address] Performed By: #### 2 4323-8, DILAN #### [facility] CLIA [id number] [address] [place] [address] [place] Creatinine [Mass/Vol] 1.67 mg/dL High 0.73-1.22 [facility] Comment on above: Order Comment: Speci men Type: BLOOD SPECIMEN Ordering Facility: [facility] Address: [address] [place] [address] Performed By: #### 2 4323-8, DILAN #### [facility] CLIA [id number] [address] [place] ESTIMATED GLOMERULAR FILTRATION RATE 49 mL/min/1.73m??? Low >=60 [facility] Comment on above: Order Comment: Speci men Type: BLOOD SPECIMEN Ordering Facility: [facility] Address: [address] [place] [address] Result Comment: Venita mated Glomerular Filtration Rate (eGFR) is calculated using the 2020 CKD-EPI creatinine equation. This equation utilizes serum creatinine, sex, and age as parameters. The creatinine assay has traceable calibration to isotope dilution-mass spectrometry. Refer to KDIGO guidelines for clinical interpretation. In patients with unstable renal function, e.g. those with acute kidney injury, the eGFR may not accurately reflect actual GFR. Performed By: #### 2 4323-8, DILAN #### [facility] CLIA [id number] [address] [place] [address] [place] Glucose [Mass/Vol] 253 mg/dL High 74-99 [facility] Comment on above: Order Comment: Pat noriega Type: BLOOD SPECIMEN Ordering Facility: [facility] Address: [address] [place] [address] Result Comment: The [place] [employer] Association (ADA) provides guidance for cutoff values for fasting glucose and random glucose. The ADA defines fasting as no caloric intake for at least 8 hours. Fasting plasma glucose results between 100 to 125 mg/dL indicate increased risk for diabetes (prediabetes). Fasting plasma glucose results greater than or equal to 126 mg/dL meet the criteria for diagnosis of diabetes. In the absence of unequivocal hyperglycemia, results should be confirmed by repeat testing. In a patient with classic symptoms of hyperglycemia or hyperglycemic crisis, random plasma glucose results greater than or equal to 200 mg/dL meet the criteria for diagnosis of diabetes. Reference: Standards of Medical Care in Diabetes 2016, [place] [employer] Association. Diabetes Care. 2016.39(Suppl 1). Performed By: #### 2 4323-8, DILAN #### [facility] CLIA [id number] [address] [place] [address] [place] Potassium [Moles/Vol] 4.4 mmol/L Normal 3.7-5.1 [facility] Comment on above: Order Comment: Pat noriega Type: BLOOD SPECIMEN Ordering Facility: [facility] Address: [address] [place] [address] Performed By: #### 2 4323-8, DILAN #### [facility] CLIA [id number] [address] [place] [address] [place] Protein [Mass/Vol] 7.1 g/dL Normal 6.3-8.0 [facility] Comment on above: Order Comment: Pat noriega Type: BLOOD SPECIMEN Ordering Facility: [facility] Address: [address] [place] [address] Performed By: #### 2 4323-8, DILAN #### [facility] CLIA [id number] [address] Sodium [Moles/Vol] 135 mmol/L Low 136-144 [facility] Comment on above: Order Comment: Speci men Type: BLOOD SPECIMEN Ordering Facility: [facility] Address: [address] [place] [address] Performed By: #### 2 4323-8, DILAN #### [facility] CLIA [id number] [address] Urea nitrogen [Mass/Vol] 29 mg/dL High 9-24 [facility] Comment on above: Order Comment: Speci men Type: BLOOD SPECIMEN Ordering Facility: [facility] Address: [address] [place] [address] Performed By: #### 2 4323-8, DILAN #### [facility] CLIA [id number] [address] ED NOTEon 02-04-2022 ED NOTE HNO ID: [id number] Author: Richie Perez RN Service: ? Author Type: Registered Nurse Type: ED Notes Filed: 02/07/2022 11:16 AM Note Text: Emergency Services: ED Call Back Questionnaire SERVICE DATE: 02/04/2022 Are you feeling better? Yes Any questions about discharge instructions and follow-up care? no SIGNATURE: Richie Perez RN PATIENT NAME: Reginaldo Huffman DATE: February 07, 2022 TIME: 11:15 AM [facility] ED NOTE HNO ID: [id number] Author: Kaden Young RN Service: ? Author Type: Registered Nurse Type: ED Notes Filed: 02/04/2022 2:19 PM Note Text: Pt provided with discharged instructions. Medications gone over and all questions answered. Pt. Assisted to car in wheelchair. [facility] ED NOTE HNO ID: [id number] Author: Savana Dubose RN Service: Nursing Author Type: Registered Nurse Type: ED Notes Filed: 02/04/2022 12:23 PM Note Text: Dr. mendoza at for exam. [facility] ED NOTE HNO ID: [id number] Author: Savana Dubose RN Service: ? Author Type: Registered Nurse Type: ED Notes Filed: 02/04/2022 12:12 PM Note Text: Bed: ED-12 Expected date: Expected time: Means of arrival: [place] [facility] Comments: LST/Dizziness Normal [facility] ED PROV NOTEon 02-04-2022 ED PROV NOTE HNO ID: [id number] Author: Benton Mendoza MD Service: Emergency Medicine Author Type: Physician Type: ED Provider Notes Filed: 02/04/2022 2:05 PM Note Text: ED Provider Note Patient Name: Reginaldo Huffman : 1970 SERVICE DATE: 02/04/22 History Patient presents with: Dizziness: sudden onset, with movement This is a 51-year-old male who comes in with complaints of extreme dizziness rapid onset spinning of the room. States that he did have nausea and vomiting associated with it. Past history of colon cancer alcoholism GI bleed hypertension states that he is better now but had severe episode of spinning nausea dizziness and vomiting which led to his visit to the ED today. He denies any chest pain shortness of breath he denies any numbness weakness or tingling of arms or legs he denies any bowel or bladder symptoms. No falls. No head trauma. 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 from pancreatitis. - Villous adenoma PAST SURGICAL HISTORY Procedure Laterality Date - APPENDECTOMY age 6 - COLONOSCOPY FLX DX W/COLLJ SPEC WHEN PFRMD 11/06/2012 Colonoscopy repeat 1 year - COLONOSCOPY FLX DX W/COLLJ SPEC WHEN PFRMD 12/04/2013 Colonoscopy - COLONOSCOPY FLX DX W/COLLJ SPEC WHEN PFRMD 08/26/15 Colonoscopy - ESOPHAGOGASTRODUODENOSCO PY TRANSORAL DIAGNOSTIC 11/06/2012 EGD - PAST SURGICAL HISTORY OF 07/2014 right hemicolectomy FAMILY HISTORY Problem Relation Age of Onset - Diabetes Mother - Hypertension Mother - Diabetes Father - Hypertension Father - Stroke Paternal Uncle - Heart Paternal Uncle - Hypertension Sister - Hypertension Brother - Hypertension Maternal Grandmother - Diabetes Maternal Grandmother - Cancer Maternal Grandmother melanoma - Hypertension Maternal Grandfather - Diabetes Maternal Grandfather - Hypertension Paternal Grandmother - Cancer Paternal Grandmother melanoma - Hypertension Paternal Grandfather Social History Tobacco Use - Smoking status: Former Smoker Packs/day: 2.00 Years: 8.00 Pack years: 16.00 Types: Cigars Quit date: 10/27/2003 Years since quittin.2 - Smokeless tobacco: Never Used Vaping Use - Vaping Use: Never used Substance and Sexual Activity - Alcohol use: No Comment: recovering alcoholic, quit 2003 - Drug use: No - Sexual activity: Not Currently ALLERGIES Allergen Reactions - Amlodipine Swelling Uncomfortable swelling - Claritin [Loratadin* Hives - Erythromycin Spacey Feeling - Hayfever [Homeopath* - Lisinopril Other: See Comments Hyperkalemia Review of Systems Constitutional: Negative for fever. HENT: Negative for trouble swallowing. Eyes: Negative for visual disturbance. Respiratory: Negative for shortness of breath. Cardiovascular: Negative for chest pain. Gastrointestinal: Positive for nausea and vomiting. Negative for abdominal pain. Genitourinary: Negative for frequency. Musculoskeletal: Negative for arthralgias. Skin: Negative for rash. Neurological: Positive for dizziness and light-headedness. Negative for seizures. Hematological: Negative for adenopathy. Psychiatric/Behavioral: Negative for suicidal ideas. All other systems reviewed and are negative. Physical Exam Vitals [02/04/22 1215] BP Pulse Temp Temp src Resp SpO2 Weight Height 169/87 60 36.7 ?C (98 ?F) Oral 14 98 % 102.8 kg (226 lb 9.6 oz) -- Physical Exam Vitals and nursing note reviewed. Constitutional: Appearance: Normal appearance. HENT: Head: Normocephalic and atraumatic. Right Ear: Tympanic membrane, ear canal and external ear normal. Left Ear: Tympanic membrane, ear canal and external ear normal. Nose: Nose normal. Mouth/Throat: Mouth: Mucous membranes are moist. Eyes: Extraocular Movements: Extraocular movements intact. Conjunctiva/sclera: Conjunctivae normal. Pupils: Pupils are equal, round, and reactive to light. Cardiovascular: Rate and Rhythm: Normal rate and regular rhythm. Pulses: Normal pulses. Heart sounds: Normal heart sounds. No murmur heard. No friction rub. No gallop. Pulmonary: Effort: Pulmonary effort is normal. No respiratory distress. Breath sounds: No wheezing, rhonchi or rales. Abdominal: General: Bowel sounds are normal. There is no distension. Palpations: Abdomen is soft. There is no mass. Tenderness: There is no abdominal tenderness. There is (more content not included)... Normal [facility] GLUCOSE, BLOOD (POC)on 02-04 Glucose [Mass/Vol] 262 mg/dL Abnormal 74 - 99 mg/dL [facility] HEMOGLOBIN A1C (POC)on 02-04 HbA1c (Bld) [Mass fraction] 8.3 % Abnormal 4.2 - 5.6 % [facility] PT panel Coag (PPP)on 2021 INR Coag (PPP) [Relative time] 1.6 {INR} High 0.9-1.3 [facility] Comment on above: Order Comment: Speci men Type: BLOOD SPECIMEN Ordering Facility: [facility] Address: [address] [place] [id number] Result Comment: Tereza min K Antagonist (VKA) Therapeutic Range: INR 2 to 3 (Target INR of 2.5) Note: For patients treated with VKA drugs, such as warfarin, the [place] [employer] 2012 Guideline recommends a therapeutic INR range of 2 to 3 (target INR of 2.5). This recommendation includes high-risk patients with antiphospholipid syndrome with previous arterial or venous thromboembolism, current-generation mechanical or bioprosthetic aortic heart valve replacement. Note: Patients with mechanical aortic valve replacement and additional risk factors for thromboembolic events (atrial fibrillation, previous thromboembolism, LV dysfunction, hypercoagulable conditions) or an older generation mechanical AVR (i.e., ball in-Cage) or any mechanical MVR should have a INR therapeutic range of 2.5 to 3.5 (target INR of 3). Marilyn MEDINA, et al. Chest 2012, 141:7S-47S [place] GREGORIO et al. [facility] 2017, 70: 252-289 Performed By: #### 3 4528-0 #### [facility] CLIA [id number] [address] [place] [address] [place] PT Coag (PPP) [Time] 16.6 s High 9.7-13.0 [facility] Comment on above: Order Comment: Speci men Type: BLOOD SPECIMEN Ordering Facility: [facility] Address: [address] [place] [address] Performed By: #### 3 4528-0 #### [facility] CLIA [id number] [address] [place] TROPONIN Ton 02-04-2022 Troponin T.cardiac [Mass/Vol] 0.016 ug/L Normal 0.000-0.029 [facility] Comment on above: Order Comment: Speci men Type: BLOOD SPECIMEN Ordering Facility: [facility] Address: [address] [place] [address] Performed By: #### 2 4323-8, DILAN #### [facility] CLIA [id number] [address] [place] Basophil percentageon 2021 Bilirubin [Mass/Vol] 0.10 mg/dL 0.20-1.00 [facility] Work Phone: Comment on above: For patients on eltr ombopag therapy, use of Dimension [place] TBIL is not recommended. Chloride [Moles/Vol] 102 mmol/L 98-107 [facility] Work Phone: Glucose [Mass/Vol] 216 mg/dL 74-106 [facility] Work Phone: Comment on above: Glucose result great er than or equal to 200 mg/dLsuggests DIABETES MELLITUS per A.D.A. criteria. Potassium [Moles/Vol] 4.2 mmol/L 3.5-5.1 [facility] Work Phone: Protein [Mass/Vol] 8.0 g/dL 6.4-8.2 [facility] Work Phone: Sodium [Moles/Vol] 134 mmol/L 136-145 [facility] Work Phone: WBC (Bld) [#/Vol] 5.7 10*3/uL 4.4-11.0 [facility] Work Phone: Blood erythrocytes count (nu mber/volume)on 02-01-2022 RBC (Bld) [#/Vol] 3.12 10*6/uL 4.6-6.2 [facility] Work Phone: Blood hemoglobin measurement (mass/volume)on 02-01-2022 Hemoglobin (Bld) [Mass/Vol] 9.2 g/dL 13.0-16.5 [facility] Work Phone: Blood platelet mean volumeon 02-01-2022 Platelet mean volume (Bld) [Entitic vol] 9.9 fL 6.2-12.0 [facility] Work Phone: Determination of erythrocyte mean corpuscular volume (MCV)on 02-01-2022 MCV (RBC) [Entitic vol] 88.1 fL 80-94 [facility] Work Phone: Hematocrit Auto (Bld) [Volum e fraction]on 02-01-2022 Hematocrit (Bld) [Volume fraction] 27.5 % 40-54 [facility] Work Phone: Laboratory - Chemistry and C hemistry - challengeon 02-01-2022 ALP [Catalytic activity/Vol] 74 U/L 45-117 [facility] Work Phone: ALT [Catalytic activity/Vol] 26 U/L 16-61 [facility] Work Phone: CO2 [Moles/Vol] 25.0 mmol/L 21.0-32.0 [facility] Work Phone: Globulin (S) [Mass/Vol] 4.9 g/dL 2.2-4.2 [facility] Work Phone: Urea nitrogen/Creatinine [Mass ratio] 17.1 mg/mg 10-20 [facility] Work Phone: Laboratory - Hematology and Cell countson 02-01-2022 Erythrocyte distribution width (RBC) [Entitic vol] 38.7 fL 35.1-43.9 [facility] Work Phone: Erythrocyte distribution width (RBC) [Ratio] 12.0 % 11.6-14.6 [facility] Work Phone: MCH (RBC) [Entitic mass] 29.5 pg 27.0-32.0 [facility] Work Phone: MCHC Auto (RBC) [Mass/Vol]on 02-01-2022 MCHC (RBC) [Mass/Vol] 33.5 g/dL 32-36 [facility] Work Phone: No Panel Informationon 02-01 Carbamazepine (Tegretol) Level 10.1 ug/mL 4.0-12.0 [facility] Work Phone: Estimated GFR (MDRD) Amer 59 mL/min >60 [facility] Work Phone: Comment on above: GFR Calc Estimated GFR (MDRD) Non-Af Amer 49 mL/min >60 [facility] Work Phone: Comment on above: Non- GFR Calc Urine Microalbumin/Creatinine Ratio 3975.7 mg/g CRE <30 [facility] Work Phone: Platelets bldon 02-01-2022 Platelets (Bld) [#/Vol] 235 10*3/uL 150-450 [facility] Work Phone: Serum or plasma albumin abhi urement (mass/volume)on 02-01-2022 Albumin [Mass/Vol] 3.1 g/dL 3.2-5.0 [facility] Work Phone: Serum or plasma albumin/glob ulin mass ratioon 02-01-2022 Albumin/Globulin [Mass ratio] 0.6 {ratio} 0.9-2.4 [facility] Work Phone: Serum or plasma calcium abhi urement (mass/volume)on 02-01-2022 Calcium [Mass/Vol] 9.4 mg/dL 8.5-10.1 [facility] Work Phone: Serum or plasma creatinine m easurement (mass/volume)on 02-01-2022 Creatinine [Mass/Vol] 1.58 mg/dL 0.70-1.30 [facility] Work Phone: Comment on above: The validity of the calculated GFR & GFRAA in patients over 70 years has not been determined. Clinical correlation is essential. Serum or plasma urea nitroge n measurement (mass/volume)on 02-01-2022 Urea nitrogen [Mass/Vol] 27 mg/dL 7-18 [facility] Work Phone: Thin prep Papanicolaou smear with manual screeningon 02-01-2022 Thin prep Papanicolaou smear with manual screening 13 U/L 15-37 [facility] Work Phone: Thin prep Papanicolaou smear with manual screening 7 5-15 [facility] Work Phone: Thin prep Papanicolaou smear with manual screening 2290.0 mg/L NO RANGE EST. [facility] Work Phone: Urine creatinine measurement (mass/volume)on 02-01-2022 Creatinine (U) [Mass/Vol] 57.60 mg/dL NO RANGE EST. [facility] Work Phone: No Panel Informationon 01-28 [facility] Absolute lymphocyte counton 01-26-2022 Lymphocytes Auto (Unsp spec) [#/Vol] 1.48 10*3/uL 0.83-4.51 [facility] Work Phone: Basophil percentageon 2021 Basophils/100 WBC (Bld) 0.3 % 0-1 [facility] Work Phone: Chloride [Moles/Vol] 103 mmol/L 98-107 [facility] Work Phone: Eosinophils/100 WBC (Bld) 1.0 % 0-5 [facility] Work Phone: Glucose [Mass/Vol] 165 mg/dL 74-106 [facility] Work Phone: Comment on above: Slight Lipemia, Resu lt may be falsely increased.Fasting Glucose result greater than or equal to 126 mg/dL suggests DIABETES MELLITUS per A.D.A. criteria. Neutrophils (Bld) [#/Vol] 5.6 10*3/uL 2.0-7.7 [facility] Work Phone: Neutrophils/100 WBC (Bld) 71.4 % 47-70 [facility] Work Phone: Potassium [Moles/Vol] 3.9 mmol/L 3.5-5.1 [facility] Work Phone: Comment on above: Slight Hemolysis, Re sult may be falsely increased.-Slight Lipemia, Result may be falsely increased. Sodium [Moles/Vol] 135 mmol/L 136-145 [facility] Work Phone: [phone] WBC (Bld) [#/Vol] 7.9 10*3/uL 4.4-11.0 [facility] Work Phone: Blood erythrocytes count (nu mber/volume)on 01-26-2022 RBC (Bld) [#/Vol] 2.66 10*6/uL 4.6-6.2 [facility] Work Phone: Blood hemoglobin measurement (mass/volume)on 01-26-2022 Hemoglobin (Bld) [Mass/Vol] 8.3 g/dL 13.0-16.5 [facility] Work Phone: Blood lymphocytes/100 leukoc yteson 01-26-2022 Lymphocytes/100 WBC (Bld) 18.8 % 19-41 [facility] Work Phone: [phone] Blood monocytes/100 leukocyt eson 01-26-2022 Monocytes/100 WBC (Bld) 7.9 % 0-10 [facility] Work Phone: Blood platelet mean volumeon 01-26-2022 Platelet mean volume (Bld) [Entitic vol] 9.6 fL 6.2-12.0 [facility] Work Phone: Determination of erythrocyte mean corpuscular volume (MCV)on 01-26-2022 MCV (RBC) [Entitic vol] 86.8 fL 80-94 [facility] Work Phone: Hematocrit Auto (Bld) [Volum e fraction]on 01-26-2022 Hematocrit (Bld) [Volume fraction] 23.1 % 40-54 [facility] Work Phone: Laboratory - Chemistry and C hemistry - challengeon 01-26-2022 CO2 [Moles/Vol] 24.0 mmol/L 21.0-32.0 [facility] Work Phone: Comment on above: Slight Lipemia, Resu lt may be falsely increased. Urea nitrogen/Creatinine [Mass ratio] 18.1 mg/mg 10-20 [facility] Work Phone: Laboratory - Hematology and Cell countson 01-26-2022 Erythrocyte distribution width (RBC) [Entitic vol] 38.5 fL 35.1-43.9 [facility] Work Phone: Erythrocyte distribution width (RBC) [Ratio] 12.0 % 11.6-14.6 [facility] Work Phone: Immature granulocytes/100 WBC (Bld) 0.600 % 0.0-0.9 [facility] Work Phone: Comment on above: IG% - Immature Granu locytes (promyelocytes, myelocytes and metamyelocytes) > 1% indicates that a LEFT SHIFT is Present. MCH (RBC) [Entitic mass] 31.2 pg 27.0-32.0 [facility] Work Phone: Nucleated RBC/100 WBC (Bld) [Ratio] 0 % 0-5 [facility] Work Phone: Laboratory - Microbiology an d Antimicrobial susceptibilityon 01-26-2022 Bacteria identified Cx Nom (Bld) No growth in 5 days. [facility] Work Phone: MCHC Auto (RBC) [Mass/Vol]on 01-26-2022 MCHC (RBC) [Mass/Vol] 35.9 g/dL 32-36 [facility] Work Phone: No Panel Informationon 01-26 Estimated Creatinine Clearance Calc 48.33 ml/min [facility] Work Phone: Estimated GFR (MDRD) Amer 54 mL/min >60 [facility] Work Phone: Comment on above: GFR Calc Estimated GFR (MDRD) Non-Af Amer 45 mL/min >60 [facility] Work Phone: Comment on above: Non- GFR Calc Platelets bldon 01-26-2022 Platelets (Bld) [#/Vol] 152 10*3/uL 150-450 [facility] Work Phone: Serum or plasma calcium abhi urement (mass/volume)on 01-26-2022 Calcium [Mass/Vol] 8.1 mg/dL 8.5-10.1 [facility] Work Phone: Comment on above: Slight Lipemia, Resu lt may be falsely increased. Serum or plasma creatinine m easurement (mass/volume)on 01-26-2022 Creatinine [Mass/Vol] 1.71 mg/dL 0.70-1.30 [facility] Work Phone: Comment on above: Slight Lipemia, Resu lt may be falsely increased.The validity of the calculated GFR & GFRAA in patients over 70 years has not been determined. Clinical correlation is essential. Serum or plasma urea nitroge n measurement (mass/volume)on 01-26-2022 Urea nitrogen [Mass/Vol] 31 mg/dL 7-18 [facility] Work Phone: Comment on above: Slight Lipemia, Resu lt may be falsely increased. Thin prep Papanicolaou smear with manual screeningon 01-26-2022 Thin prep Papanicolaou smear with manual screening 8 5-15 [facility] Work Phone: Absolute lymphocyte counton 11-29-2021 Lymphocytes Auto (Unsp spec) [#/Vol] 1.43 10*3/uL 0.83-4.51 [facility] Work Phone: Basophil percentageon 2021 Basophils/100 WBC (Bld) 0.4 % 0-1 [facility] Work Phone: Chloride [Moles/Vol] 107 mmol/L 98-107 [facility] Work Phone: Eosinophils/100 WBC (Bld) 1.8 % 0-5 [facility] Work Phone: Glucose [Mass/Vol] 225 mg/dL 74-106 [facility] Work Phone: Comment on above: Glucose result great er than or equal to 200 mg/dLsuggests DIABETES MELLITUS per A.D.A. criteria. Neutrophils (Bld) [#/Vol] 2.7 10*3/uL 2.0-7.7 [facility] Work Phone: Neutrophils/100 WBC (Bld) 58.9 % 47-70 [facility] Work Phone: Potassium [Moles/Vol] 5.3 mmol/L 3.5-5.1 [facility] Work Phone: [phone] Sodium [Moles/Vol] 135 mmol/L 136-145 [facility] Work Phone: WBC (Bld) [#/Vol] 4.5 10*3/uL 4.4-11.0 [facility] Work Phone: Blood erythrocytes count (nu mber/volume)on 11-29-2021 RBC (Bld) [#/Vol] 2.76 10*6/uL 4.6-6.2 [facility] Work Phone: [phone] Blood hemoglobin measurement (mass/volume)on 11-29-2021 Hemoglobin (Bld) [Mass/Vol] 8.4 g/dL 13.0-16.5 [facility] Work Phone: Blood lymphocytes/100 leukoc yteson 11-29-2021 Lymphocytes/100 WBC (Bld) 31.6 % 19-41 [facility] Work Phone: Blood monocytes/100 leukocyt eson 11-29-2021 Monocytes/100 WBC (Bld) 6.6 % 0-10 [facility] Work Phone: Blood platelet mean volumeon 11-29-2021 Platelet mean volume (Bld) [Entitic vol] 10.1 fL 6.2-12.0 [facility] Work Phone: Determination of erythrocyte mean corpuscular volume (MCV)on 11-29-2021 MCV (RBC) [Entitic vol] 89.9 fL 80-94 [facility] Work Phone: Hematocrit Auto (Bld) [Volum e fraction]on 11-29-2021 Hematocrit (Bld) [Volume fraction] 24.8 % 40-54 [facility] Work Phone: Laboratory - Chemistry and C hemistry - challengeon 11-29-2021 CO2 [Moles/Vol] 23.0 mmol/L 21.0-32.0 [facility] Work Phone: Urea nitrogen/Creatinine [Mass ratio] 17.0 mg/mg 10-20 [facility] Work Phone: Laboratory - Hematology and Cell countson 11-29-2021 Erythrocyte distribution width (RBC) [Entitic vol] 42.0 fL 35.1-43.9 [facility] Work Phone: Erythrocyte distribution width (RBC) [Ratio] 12.9 % 11.6-14.6 [facility] Work Phone: Immature granulocytes/100 WBC (Bld) 0.700 % 0.0-0.9 [facility] Work Phone: Comment on above: IG% - Immature Granu locytes (promyelocytes, myelocytes and metamyelocytes) > 1% indicates that a LEFT SHIFT is Present. MCH (RBC) [Entitic mass] 30.4 pg 27.0-32.0 [facility] Work Phone: Nucleated RBC/100 WBC (Bld) [Ratio] 0 % 0-5 [facility] Work Phone: MCHC Auto (RBC) [Mass/Vol]on 11-29-2021 MCHC (RBC) [Mass/Vol] 33.9 g/dL 32-36 [facility] Work Phone: No Panel Informationon 11-29 Estimated Creatinine Clearance Calc 51.98 ml/min [facility] Work Phone: Estimated GFR (MDRD) Amer 59 mL/min >60 [facility] Work Phone: Comment on above: GFR Calc Estimated GFR (MDRD) Non-Af Amer 49 mL/min >60 [facility] Work Phone: Comment on above: Non- GFR Calc Platelets bldon 11-29-2021 Platelets (Bld) [#/Vol] 179 10*3/uL 150-450 [facility] Work Phone: Serum or plasma calcium abhi urement (mass/volume)on 11-29-2021 Calcium [Mass/Vol] 8.6 mg/dL 8.5-10.1 [facility] Work Phone: Serum or plasma creatinine m easurement (mass/volume)on 11-29-2021 Creatinine [Mass/Vol] 1.59 mg/dL 0.70-1.30 [facility] Work Phone: Comment on above: The validity of the calculated GFR & GFRAA in patients over 70 years has not been determined. Clinical correlation is essential. Serum or plasma urea nitroge n measurement (mass/volume)on 11-29-2021 Urea nitrogen [Mass/Vol] 27 mg/dL 7-18 [facility] Work Phone: Thin prep Papanicolaou smear with manual screeningon 11-29-2021 Thin prep Papanicolaou smear with manual screening 5 5-15 [facility] Work Phone: Absolute lymphocyte counton 11-21-2021 Lymphocytes Auto (Unsp spec) [#/Vol] 1.67 10*3/uL 0.83-4.51 [facility] Work Phone: Basophil percentageon 2021 Basophils/100 WBC (Bld) 0.6 % 0-1 [facility] Work Phone: Chloride [Moles/Vol] 104 mmol/L 98-107 [facility] Work Phone: Eosinophils/100 WBC (Bld) 1.7 % 0-5 [facility] Work Phone: Glucose [Mass/Vol] 322 mg/dL 74-106 [facility] Work Phone: Comment on above: Glucose result great er than or equal to 200 mg/dLsuggests DIABETES MELLITUS per A.D.A. criteria. Neutrophils (Bld) [#/Vol] 2.6 10*3/uL 2.0-7.7 [facility] Work Phone: Neutrophils/100 WBC (Bld) 54.8 % 47-70 [facility] Work Phone: Potassium [Moles/Vol] 5.0 mmol/L 3.5-5.1 [facility] Work Phone: Sodium [Moles/Vol] 131 mmol/L 136-145 [facility] Work Phone: WBC (Bld) [#/Vol] 4.7 10*3/uL 4.4-11.0 [facility] Work Phone: [phone] Blood erythrocytes count (nu mber/volume)on 11-21-2021 RBC (Bld) [#/Vol] 2.87 10*6/uL 4.6-6.2 [facility] Work Phone: [phone] Blood hemoglobin measurement (mass/volume)on 11-21-2021 Hemoglobin (Bld) [Mass/Vol] 9.1 g/dL 13.0-16.5 [facility] Work Phone: [phone] Blood lymphocytes/100 leukoc yteson 11-21-2021 Lymphocytes/100 WBC (Bld) 35.8 % 19-41 [facility] Work Phone: Blood monocytes/100 leukocyt eson 11-21-2021 Monocytes/100 WBC (Bld) 6.2 % 0-10 [facility] Work Phone: Blood platelet mean volumeon 11-21-2021 Platelet mean volume (Bld) [Entitic vol] 9.8 fL 6.2-12.0 [facility] Work Phone: Determination of erythrocyte mean corpuscular volume (MCV)on 11-21-2021 MCV (RBC) [Entitic vol] 88.5 fL 80-94 [facility] Work Phone: Hematocrit Auto (Bld) [Volum e fraction]on 11-21-2021 Hematocrit (Bld) [Volume fraction] 25.4 % 40-54 [facility] Work Phone: Laboratory - Chemistry and C hemistry - challengeon 11-21-2021 CO2 [Moles/Vol] 20.0 mmol/L 21.0-32.0 [facility] Work Phone: Urea nitrogen/Creatinine [Mass ratio] 25.9 mg/mg 10-20 [facility] Work Phone: Laboratory - Hematology and Cell countson 11-21-2021 Erythrocyte distribution width (RBC) [Entitic vol] 41.5 fL 35.1-43.9 [facility] Work Phone: Erythrocyte distribution width (RBC) [Ratio] 12.8 % 11.6-14.6 [facility] Work Phone: Immature granulocytes/100 WBC (Bld) 0.900 % 0.0-0.9 [facility] Work Phone: Comment on above: IG% - Immature Granu locytes (promyelocytes, myelocytes and metamyelocytes) > 1% indicates that a LEFT SHIFT is Present. MCH (RBC) [Entitic mass] 31.7 pg 27.0-32.0 [facility] Work Phone: Nucleated RBC/100 WBC (Bld) [Ratio] 0 % 0-5 [facility] Work Phone: MCHC Auto (RBC) [Mass/Vol]on 11-21-2021 MCHC (RBC) [Mass/Vol] 35.8 g/dL 32-36 [facility] Work Phone: No Panel Informationon 11-21 Estimated Creatinine Clearance Calc 49.79 ml/min [facility] Work Phone: Estimated GFR (MDRD) Amer 56 mL/min >60 [facility] Work Phone: Comment on above: GFR Calc Estimated GFR (MDRD) Non-Af Amer 46 mL/min >60 [facility] Work Phone: Comment on above: Non- GFR Calc Platelets bldon 11-21-2021 Platelets (Bld) [#/Vol] 196 10*3/uL 150-450 [facility] Work Phone: Serum or plasma calcium abhi urement (mass/volume)on 11-21-2021 Calcium [Mass/Vol] 8.2 mg/dL 8.5-10.1 [facility] Work Phone: Serum or plasma creatinine m easurement (mass/volume)on 11-21-2021 Creatinine [Mass/Vol] 1.66 mg/dL 0.70-1.30 [facility] Work Phone: Comment on above: The validity of the calculated GFR & GFRAA in patients over 70 years has not been determined. Clinical correlation is essential. Serum or plasma urea nitroge n measurement (mass/volume)on 11-21-2021 Urea nitrogen [Mass/Vol] 43 mg/dL 7-18 [facility] Work Phone: Thin prep Papanicolaou smear with manual screeningon 11-21-2021 Thin prep Papanicolaou smear with manual screening 7 5-15 [facility] Work Phone: Iron measurement (mass/mass) on 04-15-2021 Iron (Unsp spec) [Mass/Mass] 92 ug/dL 65-175 [facility] Comment on above: Moderate Hemolysis, Result may be falsely increased. Laboratory - Chemistry and C hemistry - challengeon 04-15-2021 Cobalamin (Vitamin B12) [Mass/Vol] 791 pg/mL 211-911 [facility] No Panel Informationon 04-15 Thyroid Stimulating Hormone (TSH) 1.28 uIU/mL 0.358-3.74 [facility] Total Iron Binding Capacity 307 ug/dL 250-450 [facility] Comment on above: Moderate Hemolysis, Result may be falsely increased. Serum or plasma ferritin ngozi surement (mass/volume)on 04-15-2021 Ferritin [Mass/Vol] 390 ng/mL 26-388 [facility] Serum or plasma iron saturat ion measurement (mass fraction)on 04-15-2021 Iron saturation [Mass fraction] 30.0 % 15.0-55.0 [facility] Absolute lymphocyte counton 04-09-2021 Lymphocytes Auto (Unsp spec) [#/Vol] 1.94 10*3/uL 0.83-4.51 [facility] Work Phone: Basophil percentageon 2020 Bilirubin [Mass/Vol] 0.30 mg/dL 0.20-1.00 [facility] Work Phone: Comment on above: For patients on eltr ombopag therapy, use of Dimension [place] TBIL is not recommended. Chloride [Moles/Vol] 98 mmol/L 98-107 [facility] Work Phone: Eosinophils/100 WBC (Bld) 1.5 % 0-5 [facility] Work Phone: Glucose [Mass/Vol] 264 mg/dL 74-106 [facility] Work Phone: Comment on above: Glucose result great er than or equal to 200 mg/dLsuggests DIABETES MELLITUS per A.D.A. criteria.Please note revised GLUCOSE reference range effective 2017. Neutrophils (Bld) [#/Vol] 3.5 10*3/uL 2.0-7.7 [facility] Work Phone: [phone] Potassium [Moles/Vol] 4.2 mmol/L 3.5-5.1 [facility] Work Phone: Protein [Mass/Vol] 7.8 g/dL 6.4-8.2 [facility] Work Phone: Sodium [Moles/Vol] 129 mmol/L 136-145 [facility] Work Phone: WBC (Bld) [#/Vol] 6.0 10*3/uL 4.4-11.0 [facility] Work Phone: Blood erythrocytes count (nu mber/volume)on 04-09-2021 RBC (Bld) [#/Vol] 3.26 10*6/uL 4.6-6.2 [facility] Work Phone: Blood hemoglobin measurement (mass/volume)on 04-09-2021 Hemoglobin (Bld) [Mass/Vol] 10.4 g/dL 13.0-16.5 [facility] Work Phone: Blood lymphocytes/100 leukoc yteson 04-09-2021 Lymphocytes/100 WBC (Bld) 32.5 % 19-41 [facility] Work Phone: Blood monocytes/100 leukocyt eson 04-09-2021 Monocytes/100 WBC (Bld) 4.5 % 0-10 [facility] Work Phone: Blood platelet mean volumeon 04-09-2021 Platelet mean volume (Bld) [Entitic vol] 9.8 fL 6.2-12.0 [facility] Work Phone: Determination of erythrocyte mean corpuscular volume (MCV)on 04-09-2021 MCV (RBC) [Entitic vol] 85.9 fL 80-94 [facility] Work Phone: Hematocrit Auto (Bld) [Volum e fraction]on 04-09-2021 Hematocrit (Bld) [Volume fraction] 28.0 % 40-54 [facility] Work Phone: Laboratory - Chemistry and C hemistry - challengeon 04-09-2021 ALP [Catalytic activity/Vol] 46 U/L 45-117 [facility] Work Phone: ALT [Catalytic activity/Vol] 33 U/L 16-61 [facility] Work Phone: CO2 [Moles/Vol] 25.0 mmol/L 21.0-32.0 [facility] Work Phone: Globulin (S) [Mass/Vol] 4.2 g/dL 2.2-4.2 [facility] Work Phone: Urea nitrogen/Creatinine [Mass ratio] 17.7 mg/mg 10-20 [facility] Work Phone: Laboratory - Hematology and Cell countson 04-09-2021 Basophils/100 WBC (Unsp spec) 0.5 % 0-1 [facility] Work Phone: [phone] Erythrocyte distribution width (RBC) [Entitic vol] 37.9 fL 35.1-43.9 [facility] Work Phone: Erythrocyte distribution width (RBC) [Ratio] 12.2 % 11.6-14.6 [facility] Work Phone: Immature granulocytes/100 WBC (Bld) 1.700 % 0.0-0.9 [facility] Work Phone: Comment on above: IG% - Immature Granu locytes (promyelocytes, myelocytes and metamyelocytes) > 1% indicates that a LEFT SHIFT is Present. MCH (RBC) [Entitic mass] 31.9 pg 27.0-32.0 [facility] Work Phone: Neutrophils/100 WBC (Bld) 59.3 % 47-70 [facility] Work Phone: Nucleated RBC/100 WBC (Bld) [Ratio] 0 % 0-5 [facility] Work Phone: MCHC Auto (RBC) [Mass/Vol]on 04-09-2021 MCHC (RBC) [Mass/Vol] 37.1 g/dL 32-36 [facility] Work Phone: No Panel Informationon 04-09 Estimated Creatinine Clearance Calc 63.28 ml/min [facility] Work Phone: Estimated GFR (MDRD) Amer 68 mL/min >60 [facility] Work Phone: [phone] Comment on above: GFR Calc Estimated GFR (MDRD) Non-Af Amer 56 mL/min >60 [facility] Work Phone: Comment on above: Non- GFR Calc Platelets bldon 04-09-2021 Platelets (Bld) [#/Vol] 196 10*3/uL 150-450 [facility] Work Phone: Serum or plasma albumin abhi urement (mass/volume)on 04-09-2021 Albumin [Mass/Vol] 3.6 g/dL 3.2-5.0 [facility] Work Phone: Serum or plasma albumin/glob ulin mass ratioon 04-09-2021 Albumin/Globulin [Mass ratio] 0.9 {ratio} 0.9-2.4 [facility] Work Phone: Serum or plasma calcium abhi urement (mass/volume)on 04-09-2021 Calcium [Mass/Vol] 8.7 mg/dL 8.5-10.1 [facility] Work Phone: Serum or plasma carcinoembry onic antigen measurement (mass/volume)on 04-09-2021 Carcinoembryonic Ag [Mass/Vol] 1.7 ng/mL 0.0-4.7 [facility] Work Phone: Comment on above: Nonsmokers <3.9 Smok ers <5.6[employer] Electrochemiluminescence Immunoassay(ECLIA)Values obtained with different assay methods or kitscannot be used interchangeably. Results cannot beinterpreted as absolute evidence of the presence orabsence of malignant disease.Performed at: [employer] [id number] Director: Bradley Peña PhD, Phone: [phone] Serum or plasma creatinine m easurement (mass/volume)on 04-09-2021 Creatinine [Mass/Vol] 1.41 mg/dL 0.70-1.30 [facility] Work Phone: Comment on above: The validity of the calculated GFR & GFRAA in patients over 70 years has not been determined. Clinical correlation is essential. Serum or plasma urea nitroge n measurement (mass/volume)on 04-09-2021 Urea nitrogen [Mass/Vol] 25 mg/dL 7-18 [facility] Work Phone: Thin prep Papanicolaou smear with manual screeningon 04-09-2021 Thin prep Papanicolaou smear with manual screening 23 U/L 15-37 [facility] Work Phone: Thin prep Papanicolaou smear with manual screening 6 5-15 [facility] Work Phone: Thin prep Papanicolaou smear with manual screening 122 U/L 87-241 [facility] CNOVon 01-29-2021 CNOV Office Visit (NEURGN ) -------- REGINALDO HUFFMAN ([id number]) 1970 M Date Time Provider Department 01/29/21 10:00 AM ERNESTO MAYO During your visit today, we recorded the following information about you: Pulse Blood pressure Weight Height 74/minute 164/80 100.2 kg 1.727 m Ernesto Mayo APRN.CNP 01/29/2021 10:21 AM Signed Get blood work Do MRI Follow up in 4 weeks Ernesto Mayo APRN.CNP 01/29/2021 12:17 PM Signed Neurology Consultation Note Date: January 29, 2021 Patient Name: Reginaldo Huffman Neurology was requested to evaluate Reginaldo Huffman, a 50 year old male for a chief complaint of trigeminal neuralgia. Our recommendations of care will be communicated by shared medical record. HPI: This is Mr. Reginaldo Huffman a 50 year old right handed male from [place] who presents to the [facility] outpatient neurology department with a chief complaint [...] 1 ML INJECTIONS EVERY 2 WEEKS omega 4-umn-mpd-fish oil 300-400-1,000 mg cap Take 1 capsule by mouth once daily. Multivitamin capsule Take 1 capsule by mouth once daily. alcohol swabs padm Use 8 swabs daily TO CHECK BLOOD SUGAR AND FOR INSULIN INJECTIONS blood sugar diagnostic (FREESTYLE LITE STRIPS) test strip TEST four times a day, IDDM, E11.65 Insulin [place], Disposable, (PEN NEEDLES) 31 gauge x 1/4 [...] and tolerability. MEDICAL HISTORY PAST MEDICAL HISTORY (more content not included)... Normal [facility] Lilly 01-29-2021 LETITIA Telephone (NEURGN) -------- REGINALDO HUFFMAN ([id number]) 1970 M Date Time Provider Department 01/29/21 ERNESTO MAYO During your visit today, we recorded the following information about you: Shirin Martinez 01/29/2021 3:14 PM Signed Reginaldo decided he would like to set up his MRI Brain wo/w IVCON appointment in the [facility] location. He has his order and will set it up himself. Allergies As of Date: 01/29/2021 Noted Allergy Reaction CLARITIN (LORATADINE) 05/09/2005 4 - Hives ERYTHROMYCIN 05/09/2005 Comments: Spacey Feeling HAYFEVER (HOMEOPATHIC PRODUCTS) 04/15/2005 Date Reviewed: 01/29/2021 Reviewed by: Grisel Langston MA - Fully Assessed Reason for Visit: Orders [681] Cmt: neurology Prescriptions as of 01/29/2021 Sig: IV CONTRAST (RADIOLOGY PROCED* MRI Brain Inject, intravenous* ROSUVASTATIN 40 MG TABLET Take 1 tablet by mouth once d* INSULIN LISPRO (U-100) 100 UN* Inject subcutaneously 18-20 * LANTUS SOLOSTAR U-100 INSULIN* Inject subcutaneously 25 uni* AMLODIPINE 5 MG TABLET Take 1 tablet by mouth once d* CARBAMAZEPINE 200 MG TABLET Take 3 tablets by mouth twice* NAYZILAM 5 MG/SPRAY (0.1 ML) * Use 1 spray in one nostril as* Patient not taking: Reported on 01/14/2021 OMEPRAZOLE 20 MG CAPSULE,JALIL* Take 1 capsule by mouth daily* ARIPIPRAZOLE 2 MG TABLET Take 2 tablets by mouth once * ATENOLOL 50 MG TABLET Take 1 tablet by mouth twice * LISINOPRIL 20 MG TABLET Take 1 tablet by mouth once d* BLOOD-GLUCOSE METER KIT 1 Each as needed. SILDENAFIL (PULMONARY HYPERTE* 2 to 5 tabs a day prn. FENOFIBRATE NANOCRYSTALLIZED * Take 1 tablet by mouth once d* SERTRALINE 100 MG TABLET Take 1 tablet by mouth once d* BD LUER-JURGEN SYRINGE 3 ML USE WITH TESTOSTERONE 1 ML IN* OMEGA 3-DHA 300 MG-EPA 400 MG* Take 1 capsule by mouth once * MULTIVITAMIN CAPSULE Take 1 capsule by mouth once * ALCOHOL SWABS Use 8 swabs daily TO CHECK BL* BLOOD SUGAR DIAGNOSTIC STRIPS TEST four times a day, IDDM, * PEN NEEDLE, DIABETIC 31 GAUGE* One needle per dose; 4 per day FISH OIL ORAL Take by mouth once daily. LANCETS TEST BLOOD SUGARS 4 TIMES BHARGAVI* VITAMIN E (DL, ACETATE) 450 M* Take 1 capsule by mouth once * IRON (DRIED) ORAL Take 1 tablet by mouth one ti* ASCORBIC ACID (VITAMIN C) 1,0* Take 1 tablet by mouth once d* CHOLECALCIFEROL (VITAMIN D3) * Take 1 capsule by mouth every* CYANOCOBALAMIN (VIT B-12) 500* Take 2 tablets by mouth once * Problem List As Of Date 01/29/2021 Noted Resolved Essential hypertension [I10] 05/09/2005 Trigeminal neuralgia [G50.0] 05/09/2005 Lumbago [M54.5] 05/09/2005 Major depressive disorder, recurrent episode (H*05/09/2005 Mixed hyperlipidemia [E78.2] 05/09/2005 CHRONIC PANCREATITIS [K86.1] 05/09/2005 Sebaceous Cyst [L72.3] 08/31/2005 09/16/2009 Sprain and Strain of Unspecified Site of Foot [*01/23/2007 09/16/2009 Onychia and Paronychia of Toe [L03.039] 02/02/2007 09/16/2009 Cellulitis and Abscess of Trunk [L03.319, L02.2*06/02/2009 09/16/2009 Sebaceous cyst [L72.3] 04/22/2011 09/25/2015 Seizure disorder [G40.909] Chronic alcoholism in remission [F10.21] 03/01/2012 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 07/23/2019 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] 09/26/2012 Lateral epicondylitis of elbow [M77.10] 05/29/2014 09/25/2015 Elbow pain [M25.529] 05/29/2014 09/25/2015 Pain in joint, upper arm [M25.529] 06/03/2014 09/25/2015 Cecum cancer (HCC) [C18.0] 09/12/2014 Colon polyps [K63.5] 09/25/2015 Type 1 diabetes mellitus with diabetic polyneur*09/27/2018 Hypogonadism in male [E29.1] 11/02/2018 Uncontrolled type 1 diabetes mellitus with diab*12/27/2018 Renal cyst [N28.1] 02/12/2020 Class 1 obesity with serious comorbidity and alex*04/28/2020 Stage 3a chronic kidney disease (HCC) [N18.31] 01/14/2021 Encounter Status:Closed by SHIRIN MARTINEZ on 01/29/21 Normal [facility] CRP SerPl-mCncon 01-29-2021 CRP [Mass/Vol] 1.3 mg/dL High <0.9 [facility] Comment on above: Order Comment: Speci men Type: BLOOD SPECIMEN Performed By: #### 1 [id number] #### [facility] CLIA [id number] [address] [place] [address] ESR Westergren method (Bld) [Velocity]on 01-29-2021 ESR (Bld) [Velocity] 40 mm/h High 0-15 [facility] Comment on above: Order Comment: Speci men Type: BLOOD SPECIMEN Performed By: #### 4 [id number] #### [facility] CLIA [id number] [address] [place] [address] CNOVon 12-10-2020 CNOV Office Visit (NEEPBA ) -------- REGINALDO HUFFMAN ([id number]) 1970 M Date Time Provider Department 12/10/20 8:20 AM LIYAH STILL During your visit today, we recorded the following information about you: Pulse Blood pressure Weight Height 75/minute 131/84 95.3 kg 1.727 m Liyah Still MD 12/10/2020 10:29 PM Signed [facility] Neurological [facility] EPILEPSY CLINIC NOTE - RETURN VISIT Chief [...] to seizures 01/13/2020 and 02/04/2020 (left face pulsating) lasting 3-5 hours. At 03/20/2020 visit he was continued on CBZ 800 BID (per med list) and asked to return in 6 months. BMP was ordered for hyponatremia. History per patient today (12/10/2020): Four seizures in 2020: 08/2019, 01/13/2020, 02/04/2020 and 06/19/2020, triggered by missing doses; was not using pillbox. Always goes to [facility] ED for seizures; given Dilaudid and something else. Each seizure lasts about 5 hours, left face and arm twitching. He remains aware, is able to talk. One seizure in 2020 so far: 11/14/2020, seen in [facility] ED. After IV meds, seizure subsides within 15-20 minutes typically. History of colon cancer in 2013, s/p resection, has port. 12/03/2020 - Dr. Cruz reduced CBZ from 800 BID to 600 [...] were normal. MRI brain was normal at [facility] in 2019. Current AED: CBZ 600 BID [...] to the house. 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 EXAM [...] (L) 09/10/2014 8:30 AM 6.4 (L) 09/30/2014 12 (more content not included)... Normal [facility] Erythrocyte distribution wid th standard deviationon 10-13-2017 Erythrocyte distribution width (RBC) [Entitic vol] 41.6 fL 35.1-43.9 [facility] Laboratory - Hematology and Cell countson 10-13-2017 Erythrocyte distribution width (RBC) [Ratio] 13.1 % 11.6-14.6 [facility] No Panel Informationon 10-13 Carcinoembryonic Ag Serial Monitor See comment [facility] Comment on above: Scanned image report available in EMR Total cell counton 8 Cells counted Molgen (Bld/Tiss) [#] Not Reportable [facility] Laboratory - Microbiology an d Antimicrobial susceptibility Bacteria identified Cx Nom (Bld) No growth in 5 days. [facility] Work Phone: Vital Signs Date Time Vital Sign Value Performing Clinician Xii rauly 06-30-2025 09:53-0500 Body height 172.72 cm Kimberlyn East MD Work Phone: [facility] 06-30-2025 09:53-0500 Body mass index (BMI) [Ratio] 30.7 kg/m2 Kimberlyn East MD Work Phone: [facility] 06-30-2025 09:53-0500 Body temperature 98 [degF] Kimberlyn East MD Work Phone: [facility] 06-30-2025 09:53-0500 Body weight 91.62 kg Kimberlyn East MD Work Phone: [facility] 06-30-2025 09:53-0500 Diastolic blood pressure 82 mm[Hg] Kimberlyn East MD Work Phone: [facility] 06-30-2025 09:53-0500 Heart rate 60 /min Kimberlyn East MD Work Phone: [facility] 06-30-2025 09:53-0500 Respiratory rate 16 /min Kimberlyn East MD Work Phone: [facility] 06-30-2025 09:53-0500 SaO2% (BldA) [Mass fraction] 98 % Kimberlyn East MD Work Phone: [facility] 06-30-2025 09:53-0500 Systolic blood pressure 211 mm[Hg] Kimberlyn East MD Work Phone: [facility] 06-25-2025 11:22-0400 Body temperature 98.2 [degF] Kimberlyn East MD Work Phone: [facility] 06-25-2025 11:22-0400 Body weight 91.17 kg Kimberlyn East MD Work Phone: [facility] 06-25-2025 11:22-0400 Diastolic blood pressure 82 mm[Hg] Kimberlyn East MD Work Phone: [facility] 06-25-2025 11:22-0400 Heart rate 60 /min Kimberlyn East MD Work Phone: [facility] 06-25-2025 11:22-0400 Respiratory rate 16 /min Kimberlyn East MD Work Phone: [phone] [place] [address] 06-25-2025 11:22-0400 SaO2% (BldA) [Mass fraction] 99 % Kimberlyn East MD Work Phone: [phone])668-312974 [address] 06-25-2025 11:22-0400 Systolic blood pressure 139 mm[Hg] Kimberlyn East MD Work Phone: [phone] [place] [address] 06-18-2025 10:44-0400 Body mass index (BMI) [Ratio] 30.9 kg/m2 Kimberlyn East MD Work Phone: [phone] [place] [address] 06-18-2025 10:44-0400 Body weight 92.07 kg Kimberlyn East MD Work Phone: [phone] [place] [address] 06-18-2025 10:44-0400 Diastolic blood pressure 75 mm[Hg] Kimberlyn East MD Work Phone: [phone] [place] [address] 06-18-2025 10:44-0400 Heart rate 66 /min Kimberlyn East MD Work Phone: [phone] [place] [address] 06-18-2025 10:44-0400 SaO2% (BldA) [Mass fraction] 98 % Kimberlyn East MD Work Phone: [phone] [place] [address] 06-18-2025 10:44-0400 Systolic blood pressure 145 mm[Hg] Kimberlyn East MD Work Phone: [facility] 06-04-2025 08:21-0400 Body height 172.72 cm Kimberlyn East MD Work Phone: [facility] 06-04-2025 08:21-0400 Body weight 90.26 kg Kimberlyn East MD Work Phone: [facility] 06-03-2025 07:55-0400 Body mass index (BMI) [Ratio] 30.2 kg/m2 Kimberlyn East MD Work Phone: [facility] 04-23-2025 14:30-0400 Body height 172.7 cm Lillian Sobotka DO Work Phone: [facility] 04-23-2025 14:30-0400 Body mass index (BMI) [Ratio] 30.35 kg/m2 Lillian Sobotka DO Work Phone: [facility] 04-23-2025 14:30-0400 Body weight 90.54 kg Lillian Sobotka DO Work Phone: [facility] 04-23-2025 14:30-0400 Diastolic blood pressure 80 mm[Hg] Lillian Sobotka DO Work Phone: [facility] 04-23-2025 14:30-0400 Heart rate 69 /min Lillian Sobotka DO Work Phone: [facility] 04-23-2025 14:30-0400 SaO2% (BldA) [Mass fraction] 99 % Lillian Sobotka DO Work Phone: [facility] 04-23-2025 14:30-0400 Systolic blood pressure 136 mm[Hg] Lillian Sobotka DO Work Phone: [facility] 04-23-2025 13:19-0400 Diastolic blood pressure 81 mm[Hg] Lillian Sobotka DO Work Phone: [facility] 04-23-2025 13:19-0400 Heart rate 65 /min Lillian Sobotka DO Work Phone: [facility] [facility] 04-23-2025 13:19-0400 Systolic blood pressure 180 mm[Hg] Lillian Sobotka DO Work Phone: [facility] 04-21-2025 07:50-0400 Body height 172.72 cm Kimberlyn East MD Work Phone: [facility] 04-21-2025 07:50-0400 Body mass index (BMI) [Ratio] 30.9 kg/m2 Kimberlyn East MD Work Phone: [facility] 04-21-2025 07:50-0400 Body temperature 98.2 [degF] Kimberlyn East MD Work Phone: [facility] 04-21-2025 07:50-0400 Body weight 92.07 kg Kimberlyn East MD Work Phone: [facility] 04-21-2025 07:50-0400 Diastolic blood pressure 86 mm[Hg] Kimberlyn East MD Work Phone: [facility] 04-21-2025 07:50-0400 Heart rate 66 /min Kimberlyn East MD Work Phone: [facility] 04-21-2025 07:50-0400 Respiratory rate 15 /min Kimberlyn East MD Work Phone: [facility] 04-21-2025 07:50-0400 SaO2% (BldA) [Mass fraction] 98 % Kimberlyn East MD Work Phone: [facility] 04-21-2025 07:50-0400 Systolic blood pressure 200 mm[Hg] Kimberlyn East MD Work Phone: [facility] 02-21-2025 08:38-0400 Body temperature 98.2 [degF] Kimberlyn East MD Work Phone: [facility] 02-21-2025 08:38-0400 Body weight 90.26 kg Kimberlyn East MD Work Phone: [facility] 02-21-2025 08:38-0400 Diastolic blood pressure 82 mm[Hg] Kimberlyn East MD Work Phone: [facility] 02-21-2025 08:38-0400 Heart rate 69 /min Kimberlyn East MD Work Phone: [facility] 02-21-2025 08:38-0400 Respiratory rate 16 /min Kimberlyn East MD Work Phone: [facility] 02-21-2025 08:38-0400 SaO2% (BldA) [Mass fraction] 98 % Kimberlyn East MD Work Phone: [facility] 02-21-2025 08:38-0400 Systolic blood pressure 179 mm[Hg] Kimberlyn East MD Work Phone: [facility] 01-27-2025 16:15-0400 Diastolic blood pressure 89 mm[Hg] Interventional [employer] Work Phone: [facility] 01-27-2025 16:15-0400 Systolic blood pressure 188 mm[Hg] Interventional [employer] Work Phone: [facility] 01-27-2025 15:00-0400 Heart rate 62 /min [employer] Work Phone: [facility] 01-27-2025 15:00-0400 SaO2% (BldA) [Mass fraction] 99 % [employer] [employer] Work Phone: [facility] 01-27-2025 13:32-0400 Body temperature 97.81 [degF] Interventional [employer] Work Phone: [facility] 01-27-2025 13:10-0400 Respiratory rate 8 /min [employer] Work Phone: [facility] 12-25-2024 14:10-0400 Body height 172.7 cm Lillian Hall DO Work Phone: [facility] 12-25-2024 14:10-0400 Body mass index (BMI) [Ratio] 30.23 kg/m2 Lillian Sobotka DO Work Phone: [facility] 12-25-2024 14:10-0400 Body weight 90.17 kg Lillian Sobotka DO Work Phone: [facility] 12-25-2024 14:10-0400 Diastolic blood pressure 68 mm[Hg] Lillian Sobotka DO Work Phone: [facility] 12-25-2024 14:10-0400 Heart rate 70 /min Lillian Sobotka DO Work Phone: [facility] 12-25-2024 14:10-0400 Respiratory rate 16 /min Lillian Sobotka DO Work Phone: [facility] 12-25-2024 14:10-0400 SaO2% (BldA) [Mass fraction] 96 % Lillian Sobotka DO Work Phone: [facility] 12-25-2024 14:10-0400 Systolic blood pressure 160 mm[Hg] Lillian Sobotka DO Work Phone: [facility] 12-20-2024 09:38-0400 Body temperature 98 [degF] Kimberlyn East MD Work Phone: [facility] 12-20-2024 09:38-0400 Body weight 90.49 kg Kimberlyn East MD Work Phone: [facility] 12-20-2024 09:38-0400 Diastolic blood pressure 72 mm[Hg] Kimberlyn East MD Work Phone: [facility] 12-20-2024 09:38-0400 Heart rate 64 /min Kimberlyn East MD Work Phone: [facility] 12-20-2024 09:38-0400 Respiratory rate 17 /min Kimberlyn East MD Work Phone: [facility] 12-20-2024 09:38-0400 SaO2% (BldA) [Mass fraction] 96 % Kimberlyn East MD Work Phone: [facility] 12-20-2024 09:38-0400 Systolic blood pressure 137 mm[Hg] Kimberlyn East MD Work Phone: [facility] 12-18-2024 10:33-0400 Body height 172.72 cm Kimberlyn East MD Work Phone: [facility] 12-18-2024 10:33-0400 Body mass index (BMI) [Ratio] 30.7 kg/m2 Kimberlyn East MD Work Phone: [facility] 12-18-2024 10:33-0400 Body weight 91.68 kg Kimberlyn East MD Work Phone: [facility] 12-18-2024 10:33-0400 Diastolic blood pressure 77 mm[Hg] Kimberlyn East MD Work Phone: [facility] 12-18-2024 10:33-0400 Heart rate 64 /min Kimberlyn East MD Work Phone: [facility] 12-18-2024 10:33-0400 SaO2% (BldA) [Mass fraction] 99 % Kimberlyn East MD Work Phone: [facility] 12-18-2024 10:33-0400 Systolic blood pressure 144 mm[Hg] Kimberlyn East MD Work Phone: [facility] 12-13-2024 09:52-0400 Body height 172.7 cm Tyrese PERAL Work Phone: [facility] 12-13-2024 09:52-0400 Body mass index (BMI) [Ratio] 29.8 kg/m2 Tyrese PEARL Work Phone: [facility] 12-13-2024 09:52-0400 Body weight 88.91 kg Tyrese PEARL Work Phone: [facility] 12-13-2024 09:52-0400 Diastolic blood pressure 85 mm[Hg] Tyrese Anisa MBBS Work Phone: [facility] 12-13-2024 09:52-0400 Heart rate 63 /min Tyrese Anisa MBBS Work Phone: [facility] 12-13-2024 09:52-0400 Systolic blood pressure 166 mm[Hg] Tyrese Anisa MBBS Work Phone: [facility] 12-11-2024 09:41-0400 Body height 172.7 cm Tyrese Anisa MBBS Work Phone: [facility] 12-11-2024 09:41-0400 Body mass index (BMI) [Ratio] 29.95 kg/m2 Tyrese Anisa MBBS Work Phone: [facility] 12-11-2024 09:41-0400 Body weight 89.36 kg Tyrese Anisa MBBS Work Phone: [facility] 12-11-2024 09:41-0400 Diastolic blood pressure 70 mm[Hg] Tyrese Anisa MBBS Work Phone: [facility] 12-11-2024 09:41-0400 Heart rate 67 /min Tyrese Anisa MBBS Work Phone: [facility] 12-11-2024 09:41-0400 Systolic blood pressure 135 mm[Hg] Tyrese Anisa MBBS Work Phone: [facility] 11-08-2024 11:16-0400 Body height 172.7 cm Tryese Anisa MBBS Work Phone: [facility] 11-08-2024 11:16-0400 Body mass index (BMI) [Ratio] 29.8 kg/m2 Tyrese Anisa MBBS Work Phone: [facility] 11-08-2024 11:16-0400 Body temperature 97.5 [degF] Tyrese Lui MBBS Work Phone: [facility] 11-08-2024 11:16-0400 Body weight 88.91 kg Tyrese Lui MBBS Work Phone: [facility] 11-08-2024 11:16-0400 Diastolic blood pressure 78 mm[Hg] Tyrese Lui MBBS Work Phone: [facility] 11-08-2024 11:16-0400 Heart rate 64 /min Tyrese Lui MBBS Work Phone: [facility] 11-08-2024 11:16-0400 Systolic blood pressure 160 mm[Hg] Tyrese Lui MBBS Work Phone: [facility] 10-30-2024 07:46-0500 Body weight 92.07 kg Kimberlyn East MD Work Phone: [facility] 10-29-2024 12:46-0500 Body mass index (BMI) [Ratio] 30.9 kg/m2 Kimberlyn East MD Work Phone: [facility] 08-14-2024 11:05-0500 Body weight 91.31 kg Kimberlyn East MD Work Phone: [facility] 07-02-2024 16:25-0500 Body temperature 96.6 [degF] Kimberlyn East MD Work Phone: [facility] 07-02-2024 16:25-0500 Diastolic blood pressure 94 mm[Hg] Kimberlyn East MD Work Phone: [facility] 07-02-2024 16:25-0500 Heart rate 67 /min Kimberlyn East MD Work Phone: [facility] 07-02-2024 16:25-0500 Respiratory rate 16 /min Kimberlyn East MD Work Phone: [facility] 07-02-2024 16:25-0500 SaO2% (BldA) [Mass fraction] 100 % Kimberlyn East MD Work Phone: [facility] 07-02-2024 16:25-0500 Systolic blood pressure 202 mm[Hg] Kimberlyn East MD Work Phone: [facility] 07-02-2024 13:28-0500 Body mass index (BMI) [Ratio] 30.7 kg/m2 Kimberlyn East MD Work Phone: [facility] 12-18-2023 17:16-0400 Body temperature 94.9 [degF] DO Luciana Jose Work Phone: [facility] 12-18-2023 17:16-0400 Diastolic blood pressure 92 mm[Hg] DO Luciana Jose Work Phone: [facility] 12-18-2023 17:16-0400 Heart rate 84 /min DO Luciana Jose Work Phone: [facility] 12-18-2023 17:16-0400 Respiratory rate 16 /min DO Luciana Jose Work Phone: [facility] 12-18-2023 17:16-0400 SaO2% (BldA) [Mass fraction] 97 % DO Luciana Jose Work Phone: [facility] 12-18-2023 17:16-0400 Systolic blood pressure 137 mm[Hg] DO Luciana Jose Work Phone: [facility] 12-18-2023 14:15-0400 Body height 173 cm DO Luciana Jose Work Phone: [facility] 12-18-2023 14:15-0400 Body mass index (BMI) [Ratio] 31.2 kg/m2 DO Luciaan Jose Work Phone: [facility] 12-18-2023 14:15-0400 Body weight 93.44 kg DO Luciana Jose Work Phone: [facility] 12-12-2023 10:50-0400 Body height 172.72 cm DO Luciana Jose Work Phone: [facility] 12-12-2023 10:50-0400 Body mass index (BMI) [Ratio] 31 kg/m2 DO Luciana Jose Work Phone: [facility] 12-12-2023 10:50-0400 Body weight 92.53 kg DO Luciana Jose Work Phone: [facility] 12-09-2023 09:48-0400 Body temperature 98.6 [degF] DO Luciana Jose Work Phone: [facility] 12-09-2023 09:48-0400 Diastolic blood pressure 80 mm[Hg] DO Luciana Jose Work Phone: [facility] 12-09-2023 09:48-0400 Heart rate 76 /min DO Luciana Jose Work Phone: [facility] 12-09-2023 09:48-0400 Respiratory rate 16 /min DO Luciana Jose Work Phone: [facility] 12-09-2023 09:48-0400 SaO2% (BldA) [Mass fraction] 100 % DO Luciana Jose Work Phone: [facility] 12-09-2023 09:48-0400 Systolic blood pressure 158 mm[Hg] DO Luciana Jose Work Phone: [facility] 12-09-2023 06:00-0400 Body mass index (BMI) [Ratio] 30.4 kg/m2 DO Luciana Jose Work Phone: [facility] 12-09-2023 06:00-0400 Body weight 90.7 kg DO Luciana Jose Work Phone: [facility] 12-08-2023 14:36-0400 Body height 172.72 cm DO Luciana Jose Work Phone: [facility] 12-07-2023 22:23-0400 SaO2% (BldA) [Mass fraction] 100 % DO Luciana Jose Work Phone: [facility] 12-07-2023 22:11-0400 Body height 172.72 cm DO Luciana Jose Work Phone: [facility] 12-07-2023 22:11-0400 Body mass index (BMI) [Ratio] 30.5 kg/m2 DO Luciana Jose Work Phone: [facility] 12-07-2023 22:11-0400 Body weight 91.1 kg DO Luciana Jose Work Phone: [facility] 12-07-2023 22:00-0400 Body temperature 98.6 [degF] DO Luciana Jose Work Phone: [facility] 12-07-2023 22:00-0400 Diastolic blood pressure 77 mm[Hg] DO Luciana Jose Work Phone: [facility] 12-07-2023 22:00-0400 Heart rate 82 /min DO Luciana Jose Work Phone: [facility] 12-07-2023 22:00-0400 Respiratory rate 18 /min DO Luciana Jose Work Phone: [facility] 12-07-2023 22:00-0400 Systolic blood pressure 149 mm[Hg] DO Luciana Jose Work Phone: [facility] 12-07-2023 10:58-0400 Body mass index (BMI) [Ratio] 31 kg/m2 DO Luciana Jose Work Phone: [facility] 12-07-2023 10:58-0400 Body temperature 98 [degF] DO Luciana Jose Work Phone: [facility] 12-07-2023 10:58-0400 Body weight 92.53 kg DO Luciana Jose Work Phone: [facility] 12-07-2023 10:58-0400 Diastolic blood pressure 97 mm[Hg] DO Luciana Jose Work Phone: [facility] 12-07-2023 10:58-0400 Heart rate 63 /min DO Luciana Jose Work Phone: [facility] 12-07-2023 10:58-0400 SaO2% (BldA) [Mass fraction] 99 % DO Luciana Jose Work Phone: [facility] 12-07-2023 10:58-0400 Systolic blood pressure 161 mm[Hg] DO Luciana Jose Work Phone: [facility] 11-30-2023 11:19-0400 Body mass index (BMI) [Ratio] 31.2 kg/m2 DO Luciana Jose Work Phone: [facility] 11-30-2023 11:19-0400 Body temperature 97.6 [degF] DO Luciana Jose Work Phone: [facility] 11-30-2023 11:19-0400 Body weight 93.24 kg DO Luciana Jose Work Phone: [facility] 11-30-2023 11:19-0400 Diastolic blood pressure 101 mm[Hg] DO Luciana Jose Work Phone: [facility] 11-30-2023 11:19-0400 Heart rate 67 /min DO Luciana Jose Work Phone: [facility] 11-30-2023 11:19-0400 Respiratory rate 18 /min DO Luciana Jose Work Phone: [facility] 11-30-2023 11:19-0400 SaO2% (BldA) [Mass fraction] 100 % DO Luciana Jose Work Phone: [facility] 11-30-2023 11:19-0400 Systolic blood pressure 202 mm[Hg] DO Luciana Jose Work Phone: [facility] 11-03-2023 13:30-0500 Diastolic blood pressure 78 mm[Hg] Dr. Chriss Cruz Work Phone: 5(291)373-805868 [place] [address] 11-03-2023 13:30-0500 Heart rate 65 /min Dr. Chriss Cruz Work Phone: 6(261)681-168087 [place] [address] 11-03-2023 13:30-0500 Respiratory rate 16 /min Dr. Chriss Cruz Work Phone: 0(254)685-793487 [place] [address] 11-03-2023 13:30-0500 SaO2% (BldA) [Mass fraction] 98 % Dr. Chriss Cruz Work Phone: 0(045)358-016587 [place] [address] 11-03-2023 13:30-0500 Systolic blood pressure 187 mm[Hg] Dr. Chriss Cruz Work Phone: 2(632)245-507687 [place] [address] 10-16-2023 11:11-0500 Body temperature 97.6 [degF] Dr. Chriss Cruz Work Phone: 9(201)737-273687 [place] [address] 10-16-2023 11:11-0500 Diastolic blood pressure 64 mm[Hg] Dr. Chriss Cruz Work Phone: 4(414)043-334387 [place] [address] 10-16-2023 11:11-0500 Heart rate 64 /min Dr. Chriss Cruz Work Phone: 2(031)962-571287 [place] [address] 10-16-2023 11:11-0500 Respiratory rate 16 /min Dr. Chriss Cruz Work Phone: 1(032)697-489587 [place] [address] 10-16-2023 11:11-0500 SaO2% (BldA) [Mass fraction] 99 % Dr. Chriss Cruz Work Phone: 5(348)959-281487 [place] [address] 10-16-2023 11:11-0500 Systolic blood pressure 170 mm[Hg] Dr. Chriss Cruz Work Phone: 3(098)973-341887 [place] [address] 10-16-2023 08:35-0500 Body height 172.[address] Chrsis Cruz Work Phone: 0(563)790-435887 [place] [address] 10-16-2023 08:35-0500 Body mass index (BMI) [Ratio] 32.7 kg/m2 Dr. Chriss Cruz Work Phone: 9(268)378-488387 [place] [address] 10-16-2023 08:35-0500 Body weight 97.[address] Chriss Cruz Work Phone: 5(025)636-190087 [place] [address] 08-09-2023 14:34-0500 Diastolic blood pressure 89 mm[Hg] Dr. Chriss Cruz Work Phone: 1(776)000-786087 [place] [address] 08-09-2023 14:34-0500 Heart rate 72 /min Dr. Chriss Cruz Work Phone: 9(653)792-891987 [place] [address] 08-09-2023 14:34-0500 Respiratory rate 14 /min Dr. Chriss Cruz Work Phone: 5(532)727-958287 [place] [address] 08-09-2023 14:34-0500 SaO2% (BldA) [Mass fraction] 99 % Dr. Chriss Cruz Work Phone: 3(565)099-828587 [place] [address] 08-09-2023 14:34-0500 Systolic blood pressure 178 mm[Hg] Dr. Chriss Cruz Work Phone: 8(250)342-739487 [place] [address] 08-09-2023 13:35-0500 Body height 172.[address] Chriss Cruz Work Phone: 5(692)847-439487 [place] [address] 08-09-2023 13:35-0500 Body mass index (BMI) [Ratio] 32.6 kg/m2 Dr. Chriss Cruz Work Phone: 4(354)478-796787 [place] [address] 08-09-2023 13:35-0500 Body temperature 98.4 [degF] Dr. Chriss Cruz Work Phone: 7(894)850-472387 [place] [address] 08-09-2023 13:35-0500 Body weight 97.[address] Chriss Cruz Work Phone: 8(702)156-993787 [place] [address] 08-02-2023 07:55-0500 Body temperature 97.6 [degF] Dr. Chriss Cruz Work Phone: 6(285)304-804287 [place] [address] 08-02-2023 07:55-0500 Diastolic blood pressure 91 mm[Hg] Dr. Chriss Cruz Work Phone: 5(078)665-475987 [place] [address] 08-02-2023 07:55-0500 Heart rate 73 /min Dr. Chriss Cruz Work Phone: 5(962)297-110887 [place] [address] 08-02-2023 07:55-0500 Respiratory rate 16 /min Dr. Chriss Cruz Work Phone: 3(977)069-131287 [place] [address] 08-02-2023 07:55-0500 SaO2% (BldA) [Mass fraction] 99 % Dr. Chriss Cruz Work Phone: 0(097)407-318287 [place] [address] 08-02-2023 07:55-0500 Systolic blood pressure 155 mm[Hg] Dr. Chriss Cruz Work Phone: 4(879)657-374987 [place] [address] 08-02-2023 06:54-0500 Body height 172.[address] Chriss Cruz Work Phone: 8(813)675-896487 [place] [address] 08-02-2023 06:54-0500 Body mass index (BMI) [Ratio] 32.5 kg/m2 Dr. Chriss Cruz Work Phone: 5(654)378-974887 [place] [address] 08-02-2023 06:54-0500 Body weight [address] Chriss Cruz Work Phone: 7(197)576-958787 [place] [address] 07-12-2023 09:51-0500 Body height 172.[address] Chriss Cruz Work Phone: 3(196)421-413287 [place] [address] 07-12-2023 09:51-0500 Body mass index (BMI) [Ratio] 33 kg/m2 Dr. Chriss Cruz Work Phone: 6(400)402-088801 [address] 07-12-2023 09:51-0500 Body temperature 98.6 [degF] Dr. Chriss Cruz Work Phone: 4(169)592-316787 [place] [address] 07-12-2023 09:51-0500 Body weight 98.[address] Chriss Cruz Work Phone: 1(540)467-848487 [place] [address] 07-12-2023 09:51-0500 Diastolic blood pressure 80 mm[Hg] Dr. Chriss Cruz Work Phone: 3(347)937-419968 [place] [address] 07-12-2023 09:51-0500 Heart rate 77 /min Dr. Chriss Cruz Work Phone: [facility] 07-12-2023 09:51-0500 Respiratory rate 17 /min Dr. Chriss Cruz Work Phone: [facility] 07-12-2023 09:51-0500 SaO2% (BldA) [Mass fraction] 99 % Dr. Chriss Cruz Work Phone: [facility] 07-12-2023 09:51-0500 Systolic blood pressure 161 mm[Hg] Dr. Chriss Cruz Work Phone: [facility] 06-23-2023 15:26-0400 Diastolic blood pressure 88 mm[Hg] [facility] [employer] Work Phone: [facility] 06-23-2023 15:26-0400 Systolic blood pressure 162 mm[Hg] Candy Kupiec [employer] Work Phone: [facility] 06-23-2023 14:58-0400 Body height 172.7 [facility] Work Phone: [facility] 06-23-2023 14:58-0400 Body weight 97.5 kg [facility] [employer] Work Phone: [facility] 06-23-2023 14:58-0400 Heart rate 71 /min [facility] [employer] Work Phone: [facility] 06-23-2023 14:58-0400 SaO2% (BldA) [Mass fraction] 99 % [facility] Work Phone: [facility] 06-07-2023 11:21-0400 Body mass index (BMI) [Ratio] 32.3 kg/m2 Dr. Chriss Cruz Work Phone: [facility] 06-07-2023 11:21-0400 Body temperature 98.8 [degF] Dr. Chriss Cruz Work Phone: [facility] 06-07-2023 11:21-0400 Body weight 96.[address] Chriss Cruz Work Phone: 1(550)400-661868 [place] [address] 06-07-2023 11:21-0400 Diastolic blood pressure 89 mm[Hg] Dr. Chriss Cruz Work Phone: 3(699)453-127468 [place] [address] 06-07-2023 11:21-0400 Heart rate 74 /min Dr. Chriss Cruz Work Phone: 4(717)195-959368 [place] [address] 06-07-2023 11:21-0400 Respiratory rate 18 /min Dr. Chriss Cruz Work Phone: 3(001)536-250087 [place] [address] 06-07-2023 11:21-0400 SaO2% (BldA) [Mass fraction] 100 % Dr. Chriss Cruz Work Phone: 1(622)707-919868 [place] [address] 06-07-2023 11:21-0400 Systolic blood pressure 189 mm[Hg] Dr. Chriss Cruz Work Phone: 2(162)347-676487 [place] [address] 05-25-2023 16:49-0400 Diastolic blood pressure 82 mm[Hg] Dr. Chriss Cruz Work Phone: 6(977)537-611287 [place] [address] 05-25-2023 16:49-0400 Systolic blood pressure 172 mm[Hg] Dr. Chriss Cruz Work Phone: 0(700)295-181168 [place] [address] 05-25-2023 16:35-0400 Heart rate 70 /min Dr. Chriss Cruz Work Phone: 7(401)271-407868 [place] [address] 05-25-2023 16:35-0400 Respiratory rate 12 /min Dr. Chriss Cruz Work Phone: 8(787)871-273268 [place] [address] 05-25-2023 16:35-0400 SaO2% (BldA) [Mass fraction] 98 % Dr. Chriss Cruz Work Phone: 9(330)576-771568 [place] [address] 05-25-2023 11:53-0400 Body mass index (BMI) [Ratio] 32.8 kg/m2 Dr. Chriss Cruz Work Phone: 0(072)156-525368 [place] [address] 05-25-2023 11:53-0400 Body temperature 97.4 [degF] Dr. Chriss Cruz Work Phone: 2(663)140-695468 [place] [address] 05-25-2023 11:53-0400 Body weight 97.[address] Chriss Cruz Work Phone: 6(956)450-806087 [place] [address] 05-25-2023 11:23-0400 Body mass index (BMI) [Ratio] 32.8 kg/m2 Dr. Chriss Cruz Work Phone: 6(771)209-935687 [place] [address] 05-25-2023 11:23-0400 Body temperature 98.9 [degF] Dr. Chriss Cruz Work Phone: 6(671)832-817087 [place] [address] 05-25-2023 11:23-0400 Body weight 98.[address] Chriss Cruz Work Phone: 0(390)812-852587 [place] [address] 05-25-2023 11:23-0400 Diastolic blood pressure 104 mm[Hg] Dr. Chriss Cruz Work Phone: 3(926)509-679787 [place] [address] 05-25-2023 11:23-0400 Heart rate 63 /min Dr. Chriss Cruz Work Phone: 6(883)502-948787 [place] [address] 05-25-2023 11:23-0400 Respiratory rate 18 /min Dr. Chriss Cruz Work Phone: 2(519)540-164687 [place] [address] 05-25-2023 11:23-0400 SaO2% (BldA) [Mass fraction] 99 % Dr. Chriss Cruz Work Phone: 6(028)429-705987 [place] [address] 05-25-2023 11:23-0400 Systolic blood pressure 216 mm[Hg] Dr. Chriss Cruz Work Phone: 7(013)135-280587 [place] [address] 05-22-2023 16:01-0400 Diastolic blood pressure 65 mm[Hg] Dr. Chriss Cruz Work Phone: 1(964)388-029387 [place] [address] 05-22-2023 16:01-0400 Heart rate 78 /min Dr. Chriss Cruz Work Phone: 7(370)675-995987 [place] [address] 05-22-2023 16:01-0400 Systolic blood pressure 165 mm[Hg] Dr. Chriss Cruz Work Phone: 8(545)605-154587 [place] [address] 05-22-2023 15:33-0400 Body temperature 97.6 [degF] Dr. Chriss Cruz Work Phone: 2(750)038-715087 [place] [address] 05-22-2023 15:33-0400 Respiratory rate 16 /min Dr. Chriss Cruz Work Phone: 6(883)812-423787 [place] [address] 05-22-2023 15:33-0400 SaO2% (BldA) [Mass fraction] 100 % Dr. Chriss Cruz Work Phone: 3(895)752-346887 [place] [address] 05-22-2023 13:30-0400 Body mass index (BMI) [Ratio] 32.1 kg/m2 Dr. Chriss Cruz Work Phone: 2(621)417-755587 [place] [address] 05-11-2023 12:58-0400 Body mass index (BMI) [Ratio] 32.1 kg/m2 Dr. Chriss Cruz Work Phone: 7(137)606-044087 [place] [address] 05-11-2023 12:58-0400 Body temperature 98.6 [degF] Dr. Chriss Cruz Work Phone: 4(923)709-065787 [place] [address] 05-11-2023 12:58-0400 Body weight 95.[address] Chriss Cruz Work Phone: 2(073)809-504987 [place] [address] 05-11-2023 12:58-0400 Diastolic blood pressure 85 mm[Hg] Dr. Chriss Cruz Work Phone: 9(814)180-361987 [place] [address] 05-11-2023 12:58-0400 Heart rate 70 /min Dr. Chriss Cruz Work Phone: 1(417)460-253787 [place] [address] 05-11-2023 12:58-0400 Respiratory rate 18 /min Dr. Chriss Cruz Work Phone: 3(647)999-286787 [place] [address] 05-11-2023 12:58-0400 SaO2% (BldA) [Mass fraction] 100 % Dr. Chriss Cruz Work Phone: 6(515)844-131187 [place] [address] 05-11-2023 12:58-0400 Systolic blood pressure 170 mm[Hg] Dr. Chriss Cruz Work Phone: 7(367)712-574787 [place] [address] 05-03-2023 10:15-0400 Body mass index (BMI) [Ratio] 32.7 kg/m2 Dr. Chriss Cruz Work Phone: 7(495)327-543887 [place] [address] 05-03-2023 10:15-0400 Body temperature 98.2 [degF] Dr. Chriss Cruz Work Phone: 0(968)228-017287 [place] [address] 05-03-2023 10:15-0400 Body weight 97.[address] Chriss Cruz Work Phone: 8(352)042-317287 [place] [address] 05-03-2023 10:15-0400 Diastolic blood pressure 84 mm[Hg] Dr. Chriss Cruz Work Phone: 6(314)695-209387 [place] [address] 05-03-2023 10:15-0400 Heart rate 72 /min Dr. Chriss Cruz Work Phone: 7(520)265-670987 [place] [address] 05-03-2023 10:15-0400 Respiratory rate 18 /min Dr. Chriss Cruz Work Phone: 5(203)740-093087 [place] [address] 05-03-2023 10:15-0400 SaO2% (BldA) [Mass fraction] 97 % Dr. Chriss Cruz Work Phone: 5(468)557-074687 [place] [address] 05-03-2023 10:15-0400 Systolic blood pressure 172 mm[Hg] Dr. Chriss Cruz Work Phone: 1(777)145-254787 [place] [address] 04-27-2023 14:34-0400 Diastolic blood pressure 88 mm[Hg] Dr. Chriss Cruz Work Phone: 8(097)545-746687 [place] [address] 04-27-2023 14:34-0400 Systolic blood pressure 158 mm[Hg] Dr. Chriss Cruz Work Phone: 1(489)056-921787 [place] [address] 04-27-2023 13:59-0400 Body mass index (BMI) [Ratio] 31.9 kg/m2 Dr. Chriss Cruz Work Phone: 4(161)116-059087 [place] [address] 04-27-2023 13:59-0400 Body temperature 98.6 [degF] Dr. Chriss Cruz Work Phone: 8(859)770-038887 [place] [address] 04-27-2023 13:59-0400 Body weight 95.[address] Chriss Cruz Work Phone: 9(143)201-553868 [place] [address] 04-27-2023 13:59-0400 Heart rate 71 /min Dr. Chriss Cruz Work Phone: 8(272)380-985587 [place] [address] 04-27-2023 13:59-0400 Respiratory rate 18 /min Dr. Chriss Cruz Work Phone: 4(393)541-086587 [place] [address] 04-27-2023 13:59-0400 SaO2% (BldA) [Mass fraction] 99 % Dr. Chriss Cruz Work Phone: 7(089)618-484087 [place] [address] 03-16-2023 14:29-0400 Body height 172.[address] Chriss Cruz Work Phone: 6(198)787-374887 [place] [address] 03-16-2023 14:27-0400 Body mass index (BMI) [Ratio] 32.5 kg/m2 Dr. Chriss Cruz Work Phone: 9(628)517-662487 [place] [address] 03-16-2023 14:27-0400 Body temperature 97.4 [degF] Dr. Chriss Cruz Work Phone: 8(281)438-886087 [place] [address] 03-16-2023 14:27-0400 Body weight 97.[address] Chriss Cruz Work Phone: 5(652)608-605087 [place] [address] 03-16-2023 14:27-0400 Diastolic blood pressure 82 mm[Hg] Dr. Chriss Cruz Work Phone: 2(005)709-572587 [place] [address] 03-16-2023 14:27-0400 Heart rate 66 /min Dr. Chriss Cruz Work Phone: 3(086)015-308787 [place] [address] 03-16-2023 14:27-0400 Respiratory rate 16 /min Dr. Chriss Cruz Work Phone: 7(644)086-953887 [place] [address] 03-16-2023 14:27-0400 SaO2% (BldA) [Mass fraction] 99 % Dr. Chriss Cruz Work Phone: 9(186)095-265687 [place] [address] 03-16-2023 14:27-0400 Systolic blood pressure 178 mm[Hg] Dr. Chriss Cruz Work Phone: 9(437)267-054987 [place] [address] 02-14-2023 14:37-0400 Body temperature 97.4 [degF] Dr. Chriss Cruz Work Phone: [facility] 02-14-2023 14:37-0400 Diastolic blood pressure 84 mm[Hg] Dr. Chriss Cruz Work Phone: [facility] 02-14-2023 14:37-0400 Heart rate 70 /min Dr. Chriss Cruz Work Phone: [facility] 02-14-2023 14:37-0400 Respiratory rate 16 /min Dr. Chriss Cruz Work Phone: [facility] 02-14-2023 14:37-0400 Systolic blood pressure 159 mm[Hg] Dr. Chriss Cruz Work Phone: [facility] 02-01-2023 10:26-0400 Body height 172.7 cm Chriss Cruz MD Work Phone: [facility] 02-01-2023 10:26-0400 Body weight 96.16 kg Chriss Cruz MD Work Phone: [facility] 02-01-2023 10:26-0400 Diastolic blood pressure 82 mm[Hg] Chriss Cruz MD Work Phone: [facility] 02-01-2023 10:26-0400 Heart rate 68 /min Chriss Cruz MD Work Phone: [facility] 02-01-2023 10:26-0400 SaO2% (BldA) [Mass fraction] 97 % Chriss Cruz MD Work Phone: [facility] 02-01-2023 10:26-0400 Systolic blood pressure 164 mm[Hg] Chriss Cruz MD Work Phone: [facility] 01-31-2023 10:59-0400 Body mass index (BMI) [Ratio] 32.5 kg/m2 Dr. Chriss Cruz Work Phone: [facility] 01-31-2023 10:59-0400 Body temperature 97.9 [degF] Dr. Chriss Cruz Work Phone: 0(241)718-671468 [place] [address] 01-31-2023 10:59-0400 Body weight 97.[address] Chriss Cruz Work Phone: 4(347)430-631287 [place] [address] 01-31-2023 10:59-0400 Diastolic blood pressure 75 mm[Hg] Dr. Chriss Cruz Work Phone: 0(216)869-664287 [place] [address] 01-31-2023 10:59-0400 Heart rate 69 /min Dr. Chriss Cruz Work Phone: 2(143)598-911487 [place] [address] 01-31-2023 10:59-0400 Respiratory rate 16 /min Dr. Chriss Cruz Work Phone: 8(043)532-693487 [place] [address] 01-31-2023 10:59-0400 SaO2% (BldA) [Mass fraction] 99 % Dr. Chriss Cruz Work Phone: 6(786)607-906687 [place] [address] 01-31-2023 10:59-0400 Systolic blood pressure 174 mm[Hg] Dr. Chriss Cruz Work Phone: 9(655)109-673687 [place] [address] 01-30-2023 09:07-0400 Body mass index (BMI) [Ratio] 32.5 kg/m2 Dr. Chriss Cruz Work Phone: 6(463)596-597087 [place] [address] 01-30-2023 09:07-0400 Body temperature 986 [degF] Dr. Chriss Cruz Work Phone: 9(932)695-761787 [place] [address] 01-30-2023 09:07-0400 Body weight 97.[address] Chriss Cruz Work Phone: 9(803)582-098868 [place] [address] 01-30-2023 09:07-0400 Diastolic blood pressure 98 mm[Hg] Dr. Chriss Cruz Work Phone: 9(153)771-474987 [place] [address] 01-30-2023 09:07-0400 Heart rate 71 /min Dr. Chriss Cruz Work Phone: 8(344)458-094868 [place] [address] 01-30-2023 09:07-0400 Respiratory rate 16 /min Dr. Chriss Cruz Work Phone: 2(407)899-413768 [place] [address] 01-30-2023 09:07-0400 SaO2% (BldA) [Mass fraction] 98 % Dr. Chriss Cruz Work Phone: 0(672)159-095187 [place] [address] 01-30-2023 09:07-0400 Systolic blood pressure 158 mm[Hg] Dr. Chriss Cruz Work Phone: 8(279)717-719787 [place] [address] 01-17-2023 14:23-0400 Body mass index (BMI) [Ratio] 32.3 kg/m2 Dr. Chriss Cruz Work Phone: 3(268)434-297187 [place] [address] 01-14-2023 04:55-0400 Heart rate 68 /min Dr. Chriss Cruz Work Phone: 0(386)982-280587 [place] [address] 01-14-2023 04:55-0400 Respiratory rate 15 /min Dr. Chriss Cruz Work Phone: 6(453)621-025687 [place] [address] 01-14-2023 04:55-0400 SaO2% (BldA) [Mass fraction] 99 % Dr. Chriss Cruz Work Phone: 8(024)221-638287 [place] [address] 01-14-2023 04:27-0400 Body mass index (BMI) [Ratio] 32.6 kg/m2 Dr. Chriss Cruz Work Phone: 2(381)212-513187 [place] [address] 01-14-2023 04:27-0400 Body temperature 97.9 [degF] Dr. Chriss Cruz Work Phone: 4(153)153-125187 [place] [address] 01-14-2023 04:27-0400 Body weight 97.[address] Chriss Cruz Work Phone: 5(887)497-675387 [place] [address] 01-14-2023 04:27-0400 Diastolic blood pressure 98 mm[Hg] Dr. Chriss Cruz Work Phone: 8(614)135-036987 [place] [address] 01-14-2023 04:27-0400 Systolic blood pressure 217 mm[Hg] Dr. Chriss Cruz Work Phone: 7(444)364-492787 [place] [address] 01-03-2023 14:37-0400 Body mass index (BMI) [Ratio] 32.8 kg/m2 Dr. Chriss Cruz Work Phone: 6(069)411-651187 [place] [address] 01-03-2023 14:37-0400 Body temperature 98.4 [degF] Dr. Chriss Cruz Work Phone: [facility] 01-03-2023 14:37-0400 Body weight 98.[address] Chriss Cruz Work Phone: [facility] 01-03-2023 14:37-0400 Diastolic blood pressure 90 mm[Hg] Dr. Chriss Cruz Work Phone: [facility] 01-03-2023 14:37-0400 Heart rate 71 /min Dr. Chriss Cruz Work Phone: [facility] 01-03-2023 14:37-0400 Respiratory rate 16 /min Dr. Chriss Cruz Work Phone: [facility] 01-03-2023 14:37-0400 SaO2% (BldA) [Mass fraction] 99 % Dr. Chriss Cruz Work Phone: [facility] 01-03-2023 14:37-0400 Systolic blood pressure 191 mm[Hg] Dr. Chriss Cruz Work Phone: [facility] 12-29-2022 09:36-0400 Body height 172.7 cm Chriss Cruz MD Work Phone: [facility] 12-29-2022 09:36-0400 Body weight 97.52 kg Chriss Cruz MD Work Phone: [facility] 12-29-2022 09:36-0400 Diastolic blood pressure 90 mm[Hg] Chriss Cruz MD Work Phone: [facility] 12-29-2022 09:36-0400 Heart rate 76 /min Chriss Cruz MD Work Phone: [facility] 12-29-2022 09:36-0400 SaO2% (BldA) [Mass fraction] 99 % Chriss Cruz MD Work Phone: [facility] 12-29-2022 09:36-0400 Systolic blood pressure 170 mm[Hg] Chriss Cruz MD Work Phone: [facility] 12-06-2022 14:51-0400 Body mass index (BMI) [Ratio] 32.7 kg/m2 Dr. Chriss Cruz Work Phone: [facility] 12-06-2022 14:51-0400 Body temperature 98.6 [degF] Dr. Chriss Cruz Work Phone: [facility] 12-06-2022 14:51-0400 Body weight 97.[address] Chriss Cruz Work Phone: [facility] 12-06-2022 14:51-0400 Diastolic blood pressure 69 mm[Hg] Dr. Chriss Cruz Work Phone: [facility] 12-06-2022 14:51-0400 Heart rate 72 /min Dr. Chriss Cruz Work Phone: [facility] 12-06-2022 14:51-0400 Respiratory rate 17 /min Dr. Chriss Cruz Work Phone: [facility] 12-06-2022 14:51-0400 SaO2% (BldA) [Mass fraction] 99 % Dr. Chriss Cruz Work Phone: [facility] 12-06-2022 14:51-0400 Systolic blood pressure 161 mm[Hg] Dr. Chriss Cruz Work Phone: [facility] 12-01-2022 10:15-0400 Body weight 97.61 kg Chriss Cruz MD Work Phone: [facility] 12-01-2022 10:15-0400 Diastolic blood pressure 74 mm[Hg] Chriss Cruz MD Work Phone: [facility] 12-01-2022 10:15-0400 Heart rate 75 /min Chriss Cruz MD Work Phone: [facility] 12-01-2022 10:15-0400 Respiratory rate 16 /min Chriss Cruz MD Work Phone: [facility] 12-01-2022 10:15-0400 SaO2% (BldA) [Mass fraction] 99 % Chriss Cruz MD Work Phone: [facility] 12-01-2022 10:15-0400 Systolic blood pressure 136 mm[Hg] Chriss Cruz MD Work Phone: [facility] 11-26-2022 15:40-0400 Body temperature 98.1 [degF] Dr. Chriss Cruz Work Phone: [facility] 11-26-2022 15:40-0400 Diastolic blood pressure 79 mm[Hg] Dr. Chriss Cruz Work Phone: 2(401)809-841868 [place] [address] 11-26-2022 15:40-0400 Heart rate 79 /min Dr. Chriss Cruz Work Phone: 9(160)822-686968 [place] [address] 11-26-2022 15:40-0400 Respiratory rate 16 /min Dr. Chriss Cruz Work Phone: [facility] 11-26-2022 15:40-0400 SaO2% (BldA) [Mass fraction] 99 % Dr. Chriss Cruz Work Phone: 7(322)691-703168 [place] [address] 11-26-2022 15:40-0400 Systolic blood pressure 148 mm[Hg] Dr. Chriss Cruz Work Phone: 8(848)248-430687 [place] [address] 11-26-2022 06:00-0400 Body mass index (BMI) [Ratio] 32.2 kg/m2 Dr. Chriss Cruz Work Phone: 7(749)417-889068 [place] [address] 11-26-2022 06:00-0400 Body weight 96.[address] Chriss Cruz Work Phone: 1(892)247-661068 [place] [address] 11-24-2022 15:05-0400 Body height [address] Chriss Cruz Work Phone: 0(273)686-040668 [place] [address] 11-23-2022 12:48-0400 Diastolic blood pressure 68 mm[Hg] Dr. Chriss Cruz Work Phone: 8(726)777-825468 [place] [address] 11-23-2022 12:48-0400 Heart rate 71 /min Dr. Chriss Cruz Work Phone: 3(511)809-772068 [place] [address] 11-23-2022 12:48-0400 Systolic blood pressure 119 mm[Hg] Dr. Chriss Cruz Work Phone: 2(513)575-501687 [place] [address] 11-23-2022 12:30-0400 Body temperature 97.6 [degF] Dr. Chriss Cruz Work Phone: 8(522)632-581387 [place] [address] 11-23-2022 12:30-0400 Respiratory rate 14 /min Dr. Chriss Cruz Work Phone: 6(007)059-425187 [place] [address] 11-23-2022 12:30-0400 SaO2% (BldA) [Mass fraction] 100 % Dr. Chriss Cruz Work Phone: 9(689)418-387987 [place] [address] 11-23-2022 11:07-0400 Body height [address] Chriss Cruz Work Phone: 1(485)029-761887 [place] [address] 11-23-2022 11:07-0400 Body mass index (BMI) [Ratio] 32.8 kg/m2 Dr. Chriss Cruz Work Phone: 9(563)142-364687 [place] [address] 11-23-2022 11:07-0400 Body weight 98.[address] Chriss Cruz Work Phone: 1(929)889-511987 [place] [address] 11-22-2022 13:52-0400 Body mass index (BMI) [Ratio] 32.3 kg/m2 Dr. Chriss Cruz Work Phone: 0(138)604-714487 [place] [address] 11-22-2022 13:52-0400 Body temperature 97.8 [degF] Dr. Chriss Cruz Work Phone: 6(667)071-355087 [place] [address] 11-22-2022 13:52-0400 Body weight 96.[address] Chriss Cruz Work Phone: 7(602)338-119187 [place] [address] 11-22-2022 13:52-0400 Diastolic blood pressure 80 mm[Hg] Dr. Chriss Cruz Work Phone: 8(294)978-113187 [place] [address] 11-22-2022 13:52-0400 Heart rate 69 /min Dr. Chriss Cruz Work Phone: 2(155)833-660287 [place] [address] 11-22-2022 13:52-0400 Respiratory rate 18 /min Dr. Chriss Cruz Work Phone: 0(421)189-229987 [place] [address] 11-22-2022 13:52-0400 SaO2% (BldA) [Mass fraction] 100 % Dr. Chriss Cruz Work Phone: 6(756)197-277887 [place] [address] 11-22-2022 13:52-0400 Systolic blood pressure 159 mm[Hg] Dr. Chriss Cruz Work Phone: 3(879)578-504287 [place] [address] 11-02-2022 14:36-0500 Body height 172.[address] Chriss Cruz Work Phone: 4(792)097-988487 [place] [address] 11-02-2022 14:34-0500 Body mass index (BMI) [Ratio] 32.2 kg/m2 Dr. Chriss Cruz Work Phone: 9(599)841-186387 [place] [address] 11-02-2022 14:34-0500 Body temperature 97.8 [degF] Dr. Chriss Cruz Work Phone: 0(533)603-196387 [place] [address] 11-02-2022 14:34-0500 Body weight 96.[address] Chriss Cruz Work Phone: 4(492)381-643987 [place] [address] 11-02-2022 14:34-0500 Diastolic blood pressure 83 mm[Hg] Dr. Chriss Cruz Work Phone: 4(460)479-378187 [place] [address] 11-02-2022 14:34-0500 Heart rate 65 /min Dr. Chriss Cruz Work Phone: 6(934)574-038987 [place] [address] 11-02-2022 14:34-0500 Respiratory rate 17 /min Dr. Chriss Cruz Work Phone: 0(497)561-157287 [place] [address] 11-02-2022 14:34-0500 SaO2% (BldA) [Mass fraction] 100 % Dr. Chriss Cruz Work Phone: 8(819)432-195087 [place] [address] 11-02-2022 14:34-0500 Systolic blood pressure 146 mm[Hg] Dr. Chriss Cruz Work Phone: 6(304)442-506187 [place] [address] 11-02-2022 08:25-0500 Body mass index (BMI) [Ratio] 32.3 kg/m2 Dr. Chriss Cruz Work Phone: 8(162)789-500787 [place] [address] 11-02-2022 08:25-0500 Body temperature 98.6 [degF] Dr. Chriss Cruz Work Phone: [facility] 11-02-2022 08:25-0500 Body weight 96.[address] Chriss Cruz Work Phone: [facility] 11-02-2022 08:25-0500 Diastolic blood pressure 78 mm[Hg] Dr. Chriss Cruz Work Phone: [facility] 11-02-2022 08:25-0500 Heart rate 69 /min Dr. Chriss Cruz Work Phone: [facility] 11-02-2022 08:25-0500 Respiratory rate 16 /min Dr. Chriss Cruz Work Phone: [facility] 11-02-2022 08:25-0500 SaO2% (BldA) [Mass fraction] 99 % Dr. Chriss Cruz Work Phone: [facility] 11-02-2022 08:25-0500 Systolic blood pressure 140 mm[Hg] Dr. Chriss Cruz Work Phone: [facility] 10-06-2022 13:17-0500 Diastolic blood pressure 79 mm[Hg] Chriss Cruz MD Work Phone: [facility] 10-06-2022 13:17-0500 Systolic blood pressure 166 mm[Hg] Chriss Cruz MD Work Phone: [facility] 10-06-2022 13:07-0500 Body weight 103.42 kg Chriss Cruz MD Work Phone: [facility] 10-06-2022 13:07-0500 Heart rate 81 /min Chriss Cruz MD Work Phone: [facility] 10-06-2022 13:07-0500 SaO2% (BldA) [Mass fraction] 98 % Chriss Cruz MD Work Phone: [facility] 09-20-2022 15:23-0500 Diastolic blood pressure 100 mm[Hg] Candy Penn APRN.CNP Work Phone: [facility] 09-20-2022 15:23-0500 Systolic blood pressure 160 mm[Hg] [facility] [employer] Work Phone: [facility] 09-20-2022 14:58-0500 Body height 172.8 cm [facility] [employer] Work Phone: [facility] 09-20-2022 14:58-0500 Body weight 98.61 kg [facility] [employer] Work Phone: [facility] 09-20-2022 14:58-0500 Heart rate 90 /min [facility] [employer] Work Phone: [facility] 09-20-2022 14:58-0500 Respiratory rate 16 /min [facility] [employer] Work Phone: [facility] 09-20-2022 14:58-0500 SaO2% (BldA) [Mass fraction] 100 % [facility] [employer] Work Phone: [facility] 08-22-2022 10:20-0500 Body temperature 97 [degF] Ruma Ortiz APRN.[employer] Work Phone: [facility] 08-22-2022 10:20-0500 Body weight 102.69 kg Ruma Ortiz APRN.[employer] Work Phone: [facility] 08-22-2022 10:20-0500 Diastolic blood pressure 84 mm[Hg] Ruma Ortiz APRN.[employer] Work Phone: [facility] 08-22-2022 10:20-0500 Heart rate 76 /min Ruma Ortiz APRN.[employer] Work Phone: [facility] 08-22-2022 10:20-0500 Respiratory rate 20 /min Ruma Ortiz APRN.[employer] Work Phone: [facility] 08-22-2022 10:20-0500 SaO2% (BldA) [Mass fraction] 96 % Ruma Ortiz [employer] Work Phone: [facility] 08-22-2022 10:20-0500 Systolic blood pressure 132 mm[Hg] Ruma Ortiz [employer] Work Phone: [facility] 06-17-2022 14:53-0400 Diastolic blood pressure 76 mm[Hg] [facility] [employer] Work Phone: [facility] 06-17-2022 14:53-0400 Systolic blood pressure 140 mm[Hg] [facility] [employer] Work Phone: [facility] 06-17-2022 14:32-0400 Body height 172.7 cm [facility] [employer] Work Phone: [facility] 06-17-2022 14:32-0400 Body weight 99.79 kg [facility] [employer] Work Phone: [facility] 06-17-2022 14:32-0400 Heart rate 78 /min [facility] [employer] Work Phone: [facility] 06-17-2022 14:32-0400 SaO2% (BldA) [Mass fraction] 100 % [facility] [employer] Work Phone: [facility] 06-02-2022 10:30-0400 Diastolic blood pressure 81 mm[Hg] Mi Nurse Work Phone: [facility] 06-02-2022 10:30-0400 Heart rate 65 /min Mi Nurse Work Phone: [facility] 06-02-2022 10:30-0400 Systolic blood pressure 151 mm[Hg] Mi Nurse Work Phone: [facility] 05-10-2022 13:30-0400 Body height 172.[address] Chriss Cruz Work Phone: [facility] Work Phone: 05-10-2022 13:24-0400 Body mass index (BMI) [Ratio] 33.2 kg/m2 Dr. Chriss Cruz Work Phone: [facility] Work Phone: 05-10-2022 13:24-0400 Body temperature 98.2 [degF] Dr. Chriss Cruz Work Phone: [facility] Work Phone: 05-10-2022 13:24-0400 Body weight 99.[address] Chriss Cruz Work Phone: [facility] Work Phone: 05-10-2022 13:24-0400 Diastolic blood pressure 95 mm[Hg] Dr. Chriss Cruz Work Phone: [facility] Work Phone: 05-10-2022 13:24-0400 Heart rate 78 /min Dr. Chriss Cruz Work Phone: [facility] Work Phone: 05-10-2022 13:24-0400 Respiratory rate 16 /min Dr. Chriss Cruz Work Phone: [facility] Work Phone: 05-10-2022 13:24-0400 SaO2% (BldA) [Mass fraction] 99 % Dr. Chriss Cruz Work Phone: [facility] Work Phone: 05-10-2022 13:24-0400 Systolic blood pressure 172 mm[Hg] Dr. Chriss Cruz Work Phone: [facility] Work Phone: 05-04-2022 09:36-0400 Diastolic blood pressure 88 mm[Hg] Mi Nurse Work Phone: [facility] 05-04-2022 09:36-0400 Heart rate 73 /min Mi Nurse Work Phone: [facility] 05-04-2022 09:36-0400 Systolic blood pressure 151 mm[Hg] Mi Nurse Work Phone: [facility] 03-30-2022 10:52-0400 Body height 172.7 cm Chriss Cruz MD Work Phone: [facility] 03-30-2022 10:52-0400 Body weight 96.98 kg Chriss Cruz MD Work Phone: [facility] 03-30-2022 10:52-0400 Diastolic blood pressure 82 mm[Hg] Chriss Cruz MD Work Phone: [facility] 03-30-2022 10:52-0400 Heart rate 73 /min Chriss Cruz MD Work Phone: [facility] 03-30-2022 10:52-0400 SaO2% (BldA) [Mass fraction] 98 % Chriss Cruz MD Work Phone: [facility] 03-30-2022 10:52-0400 Systolic blood pressure 154 mm[Hg] Chriss Cruz MD Work Phone: [facility] 02-13-2022 16:02-0400 Heart rate 60 /min Dr. Chriss Cruz Work Phone: [facility] Work Phone: 02-13-2022 16:02-0400 Respiratory rate 17 /min Dr. Chriss Cruz Work Phone: [facility] Work Phone: 02-13-2022 16:02-0400 SaO2% (BldA) [Mass fraction] 99 % Dr. Chriss Cruz Work Phone: [facility] Work Phone: 02-13-2022 13:46-0400 Body height 172.[address] Chriss Cruz Work Phone: [facility] Work Phone: 02-13-2022 13:46-0400 Body mass index (BMI) [Ratio] 32.8 kg/m2 Dr. Chriss Cruz Work Phone: [facility] Work Phone: 02-13-2022 13:46-0400 Body temperature 98 [degF] Dr. Chriss Cruz Work Phone: [facility] Work Phone: 02-13-2022 13:46-0400 Body weight 97.[address] Chriss Cruz Work Phone: [facility] Work Phone: 02-13-2022 13:46-0400 Diastolic blood pressure 63 mm[Hg] Dr. Chriss Cruz Work Phone: [facility] Work Phone: 02-13-2022 13:46-0400 Systolic blood pressure 108 mm[Hg] Dr. Chriss Cruz Work Phone: [facility] Work Phone: 02-08-2022 14:41-0400 Body mass index (BMI) [Ratio] 32.4 kg/m2 Dr. Chriss Cruz Work Phone: [facility] Work Phone: 02-08-2022 14:41-0400 Body temperature 98.4 [degF] Dr. Chriss Cruz Work Phone: [facility] Work Phone: 02-08-2022 14:41-0400 Body weight 96.[address] Chriss Cruz Work Phone: [facility] Work Phone: 02-08-2022 14:41-0400 Diastolic blood pressure 85 mm[Hg] Dr. Chriss Cruz Work Phone: [facility] Work Phone: 02-08-2022 14:41-0400 Heart rate 74 /min Dr. Chriss Cruz Work Phone: [facility] Work Phone: 02-08-2022 14:41-0400 Respiratory rate 16 /min Dr. Chriss Cruz Work Phone: [facility] Work Phone: 02-08-2022 14:41-0400 SaO2% (BldA) [Mass fraction] 99 % Dr. Chriss Cruz Work Phone: [facility] Work Phone: 02-08-2022 14:41-0400 Systolic blood pressure 172 mm[Hg] Dr. Chriss Cruz Work Phone: [facility] Work Phone: 02-04-2022 11:17-0400 Body weight 97.98 kg [facility] [employer] Work Phone: [facility] 02-04-2022 11:17-0400 Diastolic blood pressure 80 mm[Hg] [facility] LOCK[employer]AKER Work Phone: [facility] 02-04-2022 11:17-0400 Heart rate 66 /min [facility] LOCKET [employer]US TAKER Work Phone: [facility] 02-04-2022 11:17-0400 SaO2% (BldA) [Mass fraction] 100 % [facility] LOCKET [employer]US TAKER Work Phone: [facility] 02-04-2022 11:17-0400 Systolic blood pressure 137 mm[Hg] [facility] Work [facility]: [facility] 01-26-2022 06:48-0400 Diastolic blood pressure 70 mm[Hg] [facility] Work Phone: 01-26-2022 06:48-0400 Heart rate 78 /min [facility] Work Phone: 01-26-2022 06:48-0400 Respiratory rate 16 /min [facility] Work Phone: 01-26-2022 06:48-0400 SaO2% (BldA) [Mass fraction] 99 % [facility] Work Phone: 01-26-2022 06:48-0400 Systolic blood pressure 154 mm[Hg] [facility] Work Phone: 01-26-2022 03:11-0400 Body height 172.72 cm [facility] Work Phone: 01-26-2022 03:11-0400 Body mass index (BMI) [Ratio] 31.9 kg/m2 [facility] Work Phone: 01-26-2022 03:11-0400 Body temperature 98.2 [degF] [facility] Work Phone: 01-26-2022 03:11-0400 Body weight 95.25 kg [facility] Work Phone: 12-14-2021 10:03-0400 Diastolic blood pressure 73 mm[Hg] Pr Nurse Work Phone: [facility] 12-14-2021 10:03-0400 Heart rate 73 /min Pr Nurse Work Phone: [facility] 12-14-2021 10:03-0400 Systolic blood pressure 154 mm[Hg] Pr Nurse Work Phone: [facility] 11-29-2021 17:14-0400 Diastolic blood pressure 84 mm[Hg] [facility] Work Phone: 11-29-2021 17:14-0400 Heart rate 69 /min [facility] Work Phone: 11-29-2021 17:14-0400 Respiratory rate 18 /min [facility] Work Phone: 11-29-2021 17:14-0400 SaO2% (BldA) [Mass fraction] 100 % [facility] Work Phone: 11-29-2021 17:14-0400 Systolic blood pressure 149 mm[Hg] [facility] Work Phone: 11-29-2021 14:13-0400 Body temperature 96.8 [degF] [facility] Work Phone: 11-29-2021 14:10-0400 Body mass index (BMI) [Ratio] 34 kg/m2 [facility] Work Phone: 11-29-2021 14:10-0400 Body weight 101.6 kg [facility] Work Phone: 11-27-2021 14:11-0400 Diastolic blood pressure 69 mm[Hg] [facility] Work Phone: 11-27-2021 14:11-0400 Heart rate 62 /min [facility] Work Phone: 11-27-2021 14:11-0400 Respiratory rate 15 /min [facility] Work Phone: 11-27-2021 14:11-0400 SaO2% (BldA) [Mass fraction] 98 % [facility] Work Phone: 11-27-2021 14:11-0400 Systolic blood pressure 124 mm[Hg] [facility] Work Phone: 11-27-2021 12:10-0400 Body mass index (BMI) [Ratio] 34 kg/m2 [facility] Work Phone: 11-27-2021 12:10-0400 Body temperature 97.1 [degF] [facility] Work Phone: 11-27-2021 12:10-0400 Body weight 101.6 kg [facility] Work Phone: 11-27-2021 10:41-0400 Body weight 101.15 kg Chriss Cruz MD Work Phone: [facility] 11-27-2021 10:41-0400 Diastolic blood pressure 86 mm[Hg] Chriss Cruz MD Work Phone: [facility] 11-27-2021 10:41-0400 Heart rate 68 /min Chriss Cruz MD Work Phone: [facility] 11-27-2021 10:41-0400 SaO2% (BldA) [Mass fraction] 100 % Chriss Cruz MD Work Phone: [facility] 11-27-2021 10:41-0400 Systolic blood pressure 164 mm[Hg] Chriss Cruz MD Work Phone: [facility] 11-24-2021 08:55-0400 Body weight 101.15 kg Chriss Cruz MD Work Phone: [facility] 11-24-2021 08:55-0400 Diastolic blood pressure 100 mm[Hg] Chriss Cruz MD Work Phone: [facility] 11-24-2021 08:55-0400 Heart rate 80 /min Chriss Cruz MD Work Phone: [facility] 11-24-2021 08:55-0400 Respiratory rate 18 /min Chriss Cruz MD Work Phone: [facility] 11-24-2021 08:55-0400 Systolic blood pressure 174 mm[Hg] Chriss Cruz MD Work Phone: [facility] 11-21-2021 12:43-0400 Diastolic blood pressure 83 mm[Hg] [facility] Work Phone: 11-21-2021 12:43-0400 Heart rate 65 /min [facility] Work Phone: 11-21-2021 12:43-0400 Systolic blood pressure 147 mm[Hg] [facility] Work Phone: 11-21-2021 12:08-0400 Body mass index (BMI) [Ratio] 34.3 kg/m2 [facility] Work Phone: 11-21-2021 12:08-0400 Body temperature 96.7 [degF] [facility] Work Phone: 11-21-2021 12:08-0400 Body weight 102.5 kg [facility] Work Phone: 11-21-2021 12:08-0400 Respiratory rate 16 /min [facility] Work Phone: 11-21-2021 12:08-0400 SaO2% (BldA) [Mass fraction] 100 % [facility] Work Phone: 11-19-2021 09:23-0400 Diastolic blood pressure 73 mm[Hg] Mi Nurse Work Phone: [facility] 11-19-2021 09:23-0400 Heart rate 76 /min Mi Nurse Work Phone: [facility] 11-19-2021 09:23-0400 Systolic blood pressure 130 mm[Hg] Mi Nurse Work Phone: [facility] 05-14-2020 11:04-0400 Body temperature 97.8 [degF] [facility] 05-14-2020 11:04-0400 Body weight 96.43 kg [facility] 05-14-2020 11:04-0400 Diastolic blood pressure 88 mm[Hg] [facility] 05-14-2020 11:04-0400 Heart rate 83 /min [facility] 05-14-2020 11:04-0400 Respiratory rate 14 /min [facility] 05-14-2020 11:04-0400 SaO2% (BldA) [Mass fraction] 100 % [facility] 05-14-2020 11:04-0400 Systolic blood pressure 136 mm[Hg] [facility] 10-18-2017 11:20-0500 Body mass index (BMI) [Ratio] 31.8 kg/m2 Dr. Chriss Cruz Work Phone: [facility] 10-18-2017 10:20-0500 Body mass index (BMI) [Ratio] 31.8 kg/m2 [facility] Work Phone: Encounters Encounter Date Encounter Type Care Provider Facility Start: 06-30-2025 ambulatory Chalon Kita Facility:[facility] Start: 06-30-2025 End: 06-30-2025 ambulatory Chalon Kita Facility:[facility] Start: 06-28-2025 ambulatory CHALON KITA Facility:[facility] Start: 06-25-2025 End: 06-25-2025 ambulatory Chalon Kita Facility:[facility] Start: 06-18-2025 End: 06-18-2025 Patient encounter procedure Grisel VALENTINE -[facility] Work Phone: Start: 06-18-2025 End: 06-18-2025 ambulatory Chalmarie Kita Facility:[facility] Start: 06-04-2025 ambulatory Chalmarie East Facility:[facility] Start: 06-04-2025 Non-patient / Non-visit Dr. Kirk Fernandez MD -[facility] Start: 06-04-2025 End: 06-04-2025 Admission to same day surgery center Dr. Kirk Fernandez MD -[employer]/Special Procedures Work Phone: Start: 06-04-2025 End: 06-04-2025 ambulatory Kimberlyn East MD Work Phone: -[employer] Teacher/Special Procedures Start: 05-28-2025 ambulatory TYRESEDAYSI LANGE Facility:[facility] Start: 05-07-2025 End: 05-07-2025 Patient encounter procedure Aquiles Warren DO -[facility] Work Phone: Start: 05-07-2025 End: 05-07-2025 ambulatory Kimberlyn East MD Work Phone: -[facility] Start: 05-02-2025 Non-patient / Non-visit Dr. Kirk Fernandez MD -[facility] Start: 05-02-2025 End: 05-02-2025 ambulatory Kimberlyn East MD Work Phone: -Cardiovascular Services Start: 05-02-2025 End: 05-02-[address] Robb Paulson MD -Cardiovascular Services Work Phone: Start: 05-02-2025 End: 05-02-2025 ambulatory Kimberlyn East Facility:[facility] Start: 04-25-2025 ambulatory Jimmie Ibarra Facility:[facility] Start: 04-25-[address] Jimmie Ibarra MD -[facility] Start: 04-23-2025 End: 04-23-2025 Office outpatient visit 25 minutes Lillian Hall DO Work Phone: [facility]ology [facility]atology [facility] Comment on above: Liver lesion (Primary Dx); Portal hypertension Start: 04-23-2025 ambulatory KIMBERLYN EAST Facility:[facility] Start: 04-23-2025 ambulatory KIMBERLYN KITA Facility:[facility] Start: 04-23-2025 End: 04-23-2025 Subsequent hospital visit by physician Lillian Hall DO Work Phone: [facility] Comment on above: Arrived Start: 04-21-2025 End: 04-21-[address] Robb Paulson MD -[facility] Work Phone: Start: 04-21-2025 End: 04-21-2025 ambulatory Kimberlyn East MD Work Phone: -[facility] Start: 03-12-[address] Jimmie Ibarra MD -[facility] Start: 03-03-2025 Non-patient / Non-visit Dr. Kirk Fernandez MD -[facility] Start: 03-03-2025 End: 03-03-[address] Chriss Cruz MD Work Phone: -Cardiovascular Services Start: 03-03-2025 End: 03-03-2025 Patient encounter procedure Cynthia RIOS -Cardiovascular Services Work Phone: Start: 03-03-2025 End: 03-03-2025 ambulatory Kimberlyn East Facility:[facility] Start: 02-21-2025 End: 02-21-2025 Patient encounter procedure Cynthia RIOS -[facility] Work Phone: Start: 02-21-2025 End: 02-21-2025 ambulatory Kimberlyn East MD Work Phone: [facility] Work Phone: Start: 01-27-2025 End: 01-27-2025 ambulatory AURAMARIE KITA Facility:[facility] Start: 01-27-2025 End: 01-27-2025 Subsequent hospital visit by physician Evelin Love Work Phone: [facility] Comment on above: Hepatic fibrosis Start: 12-25-2024 ambulatory TYRESE S ANISA Facility:[facility] Start: 12-25-2024 End: 12-25-2024 Office outpatient new 60 minutes Lillian Hall DO Work Phone: Gastroenterology and Hepatology [facility] Comment on above: Hepatosplenomegaly (Primary Dx); Liver lesion; Secondary esophageal varices with bleeding Start: 12-25-2024 ambulatory TYRESE LANGE Facility:[facility] Start: 12-20-2024 End: 12-20-2024 ambulatory Chalon Kita Facility:[facility] Start: 12-20-2024 End: 12-20-2024 Patient encounter procedure Cynthia RIOS -[facility] Work Phone: Start: 12-18-2024 End: 12-18-2024 Patient encounter procedure Grisel VALENTINE -[facility] Work Phone: Start: 12-18-2024 End: 12-18-2024 ambulatory Chalon Kita Facility:[facility] Start: 12-13-2024 ambulatory CHALON KITA Facility:[facility] Start: 12-13-2024 Encounter for other preprocedural examination TYRESE LANGE Facility:[facility] Start: 12-13-2024 End: 12-13-2024 Patient encounter status Tyrese PEARL Work Phone: [facility] Work Phone: Start: 12-13-2024 End: 12-13-2024 Subsequent hospital visit by physician Tyrese PEARL Work Phone: [facility] Comment on above: Arrived Start: 12-11-2024 Anes nerve muscle tdn fascia&bursa forearm wrist CHALON KITA Facility:[facility] Start: 12-11-2024 Encounter for preprocedural cardiovascular examination TYRESE Sanya ANISA [facility] Start: 12-11-2024 ambulatory CHALON KITA Facility:[facility] Start: 12-11-2024 End: 12-11-2024 Patient encounter status Tyrese PEARL Work Phone: [facility] Work Phone: Start: 12-11-2024 End: 12-11-2024 Subsequent hospital visit by physician Tyrese PEARL Work Phone: [facility] [place] Comment on above: Arrived Start: 12-09-[address] Jimmie Ibarra MD -[facility] Start: 11-29-2024 End: 11-29-2024 Telephone encounter Dione [facility] Comment on above: Referral - Kidney Txp (NS on 11/20) Start: 11-20-2024 ambulatory Chalon Kita Facility:[facility] Start: 11-20-2024 End: 11-20-2024 Telephone encounter Lurdes Haynes RN [facility] Start: 11-08-2024 End: 11-08-2024 Clinical Support Encounter Tyrese PEARL Work Phone: [facility] Comment on above: Pre-transplant evaluation for kidney tra nsplant (Primary Dx) Start: 11-08-2024 ambulatory CHALON KITA Facility:[facility] Start: 11-08-2024 End: 11-08-2024 Office outpatient new 60 minutes Tyrese PEARL Work Phone: [facility] Comment on above: ESRD (end stage renal disease) on dialys is (Primary Dx); Pre-transplant evaluation for kidney transplant; Diabetic nephropathy associated with type 2 diabetes mellitus Start: 11-08-2024 ambulatory SELF SELF Facility:[facility] Start: 11-08-2024 End: 11-08-2024 Patient encounter status Tyrese PEARL Work Phone: [facility] Start: 11-08-2024 End: 11-08-2024 Subsequent hospital visit by physician Tyrese PEARL Work Phone: [facility] Comment on above: Arrived Start: 10-30-2024 ambulatory Chalon Kita Facility:[facility] Start: 10-30-2024 Non-patient / Non-visit Dr. Kirk Fernandez MD -[facility] Start: 10-30-2024 End: 10-30-2024 Admission to same day surgery center Dr. Kirk Fernandez MD -[employer] Teacher/Special Procedures Work Phone: Start: 10-30-2024 End: 10-30-2024 ambulatory Chalon Kita Facility:[facility] Start: 09-30-2024 End: 09-30-2024 ambulatory Chalon Kita Facility:[facility] Start: 09-18-2024 End: 09-18-2024 ambulatory Chalon Kita Facility:[facility] Start: 09-17-2024 End: 09-17-2024 Chart abstracting Dione Love RN [facility] Comment on above: Pre-transplant evaluation for kidney tra nsplant (Primary Dx) Start: 09-17-2024 End: 09-17-2024 Patient encounter status Winnie Cohen MD Work Phone: [facility] Start: 09-13-2024 ambulatory Chalon Kita Facility:[facility] Start: 09-13-2024 End: 09-13-2024 ambulatory Chalon Kita Facility:[facility] Start: 09-12-2024 End: 09-12-2024 Emergency department patient visit Chalon Kita Facility:[facility] Start: 09-11-2024 End: 09-11-2024 Patient encounter status Kidney Txp Coordinators Work Phone: [facility] Start: 09-11-2024 End: 09-11-2024 Telephone encounter Kidney Txp Coordinators Work Phone: Transplant Center Comment on above: Referral - Kidney Txp Start: 08-23-2024 Encounter for other preprocedural examination Kirk Fernandez [facility] Start: 08-14-2024 End: 08-14-2024 ambulatory Chalon Kita Facility:[facility] Start: 08-07-2024 End: 08-07-2024 ambulatory Chalon Kita Facility:[facility] Start: 08-01-2024 ambulatory Chalon Kita Facility:[facility] Start: 07-26-2024 End: 07-26-2024 ambulatory Chalon Kita Facility:[facility] Start: 07-23-2024 ambulatory Chalon Kita Facility:[facility] Start: 07-23-2024 End: 07-23-2024 ambulatory Chalon Kita Facility:[facility] Start: 07-19-2024 End: 07-19-2024 ambulatory Chalon Kita Facility:[facility] Start: 07-16-2024 ambulatory Chalon Kita Facility:[facility] Start: 07-08-2024 ambulatory Chalon Kita Facility:[facility] Start: 07-08-2024 ambulatory Chalon Kita Facility:[facility] Start: 07-05-2024 Evaluation and management of inpatient Chalon Kita Facility:[facility] Start: 07-04-2024 End: 07-04-2024 ambulatory Chalon Kita Facility:[facility] Start: 07-03-2024 ambulatory Chalon Kita Facility:[facility] Start: 07-03-2024 End: 07-03-2024 ambulatory Chalon Kita Facility:[facility] Start: 07-02-2024 ambulatory Landry Barber Facility:[facility] Start: 07-02-2024 End: 07-10-2024 Evaluation and management of inpatient Chalon Kita Facility:[facility] Start: 06-06-2024 End: 06-06-2024 Chart abstracting Chriss Cruz MD Work Phone: [facility] Start: 12-18-2023 End: 12-18-2023 Emergency department patient visit DO Luciana Garcia Work Phone: [facility]-Emergency Department Work Phone: Start: 12-12-2023 End: 12-12-2023 Patient encounter procedure DO Luciana Villaloboser Work Phone: [facility] Work Phone: Start: 12-09-2023 Non-patient / Non-visit DO Luciana Villaloboser Work Phone: [facility] Phys[facility] Work Phone: Start: 12-08-2023 Non-patient / Non-visit DO Luciana Villaloboser Work Phone: [facility] Work Phone: Start: 12-07-2023 End: 12-09-2023 Evaluation and management of inpatient DO Luciana Villaloboser Work Phone: [facility]-Progressive Care Unit Work Phone: Start: 12-07-2023 End: 12-07-2023 ambulatory DO Luciana Garcia Work Phone: [facility] Work Phone: Start: 12-07-2023 End: 12-07-2023 Patient encounter procedure DO Luciana Garcia Work Phone: [facility]-Laboratory Work Phone: Start: 11-30-2023 Registered Recurring DO Luciana Garcia Work Phone: [facility] Oncology Start: 11-30-2023 End: 11-30-2023 Patient encounter procedure DO Luciana Garcia Work Phone: [facility] Care Work Phone: Start: 11-03-2023 End: 11-03-[address] Chriss Cruz Work Phone: [facility] Work Phone: Start: 11-03-2023 End: 11-03-[address] Chriss Cruz Work Phone: [facility] Work Phone: Start: 10-16-2023 End: 10-16-2023 Emergency department patient visit Dr. Chriss Cruz Work Phone: [facility]-Emergency Department Work Phone: Start: 09-21-[address] Chriss Cruz Work Phone: [facility] Oncology Start: 08-09-2023 End: 08-09-[address] Chriss Cruz Work Phone: [facility] Work Phone: Start: 08-09-2023 End: 08-09-[address] Chriss Cruz Work Phone: [facility] Work Phone: Start: 08-08-2023 End: 08-08-[address] Chriss Cruz Work Phone: [facility] Work Phone: Start: 08-08-2023 End: 08-08-[address] Chriss Cruz Work Phone: [facility]-Laboratory Work Phone: Start: 08-02-2023 Non-patient / Non-visit Dr. Chriss Cruz Work Phone: [facility] Start: 08-02-2023 End: 08-02-2023 Admission to same day surgery center Dr. Chriss Cruz Work Phone: [facility]-Endoscopy Work Phone: Start: 08-02-2023 End: 08-02-[address] Chriss Cruz Work Phone: [facility] Work Phone: Start: 07-25-2023 End: 07-25-[address] Chriss Cruz Work Phone: [facility] Work Phone: Start: 07-25-2023 End: 07-25-[address] Chriss Cruz Work Phone: [facility] Work Phone: Start: 07-12-2023 End: 07-12-[address] Chriss Cruz Work Phone: [facility] Neurology Work Phone: Start: 07-06-[address] 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 Chriss Cruz Work Phone: [facility] Emergency Department Work Phone: Start: 05-29-2023 Refill Chriss Cruz MD Work Phone: [facility] Comment on above: Refill Request Start: 05-25-2023 End: 05-25-2023 Emergency department patient visit Dr. Chriss Cruz Work Phone: [facility]-Emergency Department Work Phone: Start: 05-25-2023 End: 05-25-[address] Chriss Cruz Work Phone: [facility] Work Phone: Start: 05-11-2023 End: 05-11-[address] Chriss Cruz Work Phone: [facility] Work Phone: Start: 05-03-2023 End: 05-03-[address] Chriss Cruz Work Phone: [facility] Endocr[facility] Work Phone: Start: 04-27-2023 End: 04-27-[address] Chriss Cruz Work Phone: [facility] Work Phone: Start: 03-24-2023 End: 03-24-[address] Chriss Cruz Work Phone: [facility] Work Phone: Start: 03-24-2023 End: 03-24-[address] Chriss Cruz Work Phone: [facility]-Laboratory Work Phone: Start: 03-16-[address] Chriss Cruz Work Phone: [facility] Oncology Start: 03-16-2023 End: 03-16-[address] Chriss Cruz Work Phone: [facility] Work Phone: Start: 02-24-2023 End: 02-24-[address] Chriss Cruz Work Phone: [facility] Work Phone: Start: 02-09-2023 Telephone encounter Candy Penn APRN.CNP Work Phone: Endocrinology Comment on above: Diabetic Eye Exam Report ([facility]) Start: 02-01-2023 End: 02-01-2023 Patient encounter procedure Chriss Cruz MD Work Phone: [facility] Comment on above: Polyneuropathy (Primary Dx); Moderate episode of recurrent major depressive disorder (HCC); Stage 3a chronic kidney disease (HCC); Essential hypertension Start: 01-31-2023 End: 01-31-[address] Chriss Cruz Work Phone: [facility] Work Phone: Start: 01-30-2023 End: 01-30-[address] Chriss Cruz Work Phone: [facility] End[facility] Work Phone: Start: 01-14-2023 End: 01-14-2023 Emergency department patient visit Dr. Chriss Cruz Work Phone: [facility]-Emergency Department Work Phone: Start: 01-03-2023 End: 01-03-[address] Chriss Cruz Work Phone: [facility] Work Phone: Start: 12-29-2022 End: 12-29-2022 Patient encounter procedure Chriss Cruz MD Work Phone: [facility] Comment on above: Gastrointestinal hemorrhage, unspecified gastrointestinal hemorrhage type (Primary Dx); Hypertension due to endocrine disorder; Mixed hyperlipidemia; Seizure disorder (HCC); Stage 3a chronic kidney disease (HCC) Start: 12-15-2022 End: 12-15-[address] Chriss Cruz Work Phone: [facility] Work Phone: Start: 12-09-2022 Telephone encounter Chriss Cruz MD Work Phone: [facility] Comment on above: Results Start: 12-06-2022 End: 12-06-[address] Chriss Cruz Work Phone: [facility] Work Phone: Start: 12-02-2022 Telephone encounter Chriss Cruz MD Work Phone: [facility] Comment on above: Results Start: 12-01-2022 End: 12-01-2022 Patient encounter procedure Chriss Cruz MD Work Phone: [facility] Comment on above: Gastrointestinal hemorrhage, unspecified gastrointestinal hemorrhage type (Primary Dx); Seizure disorder (HCC); Essential hypertension; Mixed hyperlipidemia; Stage 3a chronic kidney disease (HCC); Bleeding esophageal varices, unspecified esophageal varices type (HCC); Hepatomegaly; Decreased thyroid stimulating hormone (TSH) level; Iron deficiency anemia due to chronic blood loss Start: 11-28-2022 Patient Outreach Chriss Cruz MD Work Phone: [facility] Comment on above: Transition Of Care Start: 11-26-2022 Non-patient / Non-visit Dr. Chriss Cruz Work Phone: [facility] Start: 11-26-2022 Non-patient / Non-visit Dr. Chriss Cruz Work Phone: [facility] Start: 11-25-2022 Non-patient / Non-visit Dr. Chriss Cruz Work Phone: [facility] Start: 11-24-2022 Non-patient / Non-visit Dr. Chriss Cruz Work Phone: [facility] Start: 11-24-2022 Non-patient / Non-visit Dr. Chriss Cruz Work Phone: [facility] Start: 11-23-2022 Non-patient / Non-visit Dr. Chriss Cruz Work Phone: [facility] Start: 11-23-2022 End: 11-26-2022 Evaluation and management of inpatient Dr. Chriss Cruz Work Phone: [facility] Start: 11-22-[address] Chriss Cruz Work Phone: [facility] On[facility] Start: 11-02-2022 End: 11-02-[address] Chriss Cruz Work Phone: [facility] Start: 11-02-2022 End: 11-02-[address] Chriss Cruz Work Phone: [facility] Work Phone: Start: 11-02-2022 End: 11-02-[address] Chriss Cruz Work Phone: [facility] Start: 10-27-[address] 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); Trigeminal neuralgia; Essential hypertension; Stage 3a chronic kidney disease (HCC); Renal cyst; Cecum cancer (HCC); Anemia, unspecified type; Need for vaccination Start: 09-29-2022 End: 09-29-2022 ambulatory [facility] Work Phone: Start: 09-29-2022 End: 09-29-2022 Patient encounter procedure [facility] Start: 09-20-2022 End: 09-20-2022 Patient encounter procedure Candy Penn APRN.COMM[employer]CIAL C[employer]US [employer]AKER Work Phone: Endocrinology Comment on above: Type 1 diabetes mellitus with nephropath y (HCC) (Primary Dx); Type 1 diabetes mellitus with diabetic polyneuropathy (HCC); Type 1 diabetes mellitus with stage 3 chronic kidney disease, unspecified whether stage 3a or 3b CKD (HCC); 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); Hypogonadism in male; Mixed hyperlipidemia; Essential hypertension; Class 1 obesity with serious comorbidity and body mass index (BMI) of 33.0 to 33.9 in adult, unspecified obesity type; Encounter for screening for malignant neoplasm of prostate Start: 09-13-2022 Registered [facility] Start: 08-22-2022 End: 08-22-2022 Patient encounter procedure Ruma Ortiz APRN.[employer]US TAKER Work Phone: [facility] Comment on above: URI, acute (Primary Dx) Start: 07-08-2022 Refill Chriss Cruz MD Work Phone: [facility] Comment on above: Refill Request Start: 06-17-2022 End: 06-17-2022 Patient encounter procedure Candy Penn LOCKET MAKER.[employer] C[employer]US TAKER Work Phone: Endocrinology Comment on above: Type 1 diabetes mellitus with nephropath y (HCC) (Primary Dx); Type 1 diabetes mellitus with diabetic polyneuropathy (HCC); Type 1 diabetes mellitus with stage 3 chronic kidney disease, unspecified whether stage 3a or 3b CKD (HCC); 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); Hypogonadism in male; Mixed hyperlipidemia; Essential hypertension; Class 1 obesity with serious comorbidity and body mass index (BMI) of 33.0 to 33.9 in adult, unspecified obesity type Start: 06-03-2022 Refill Chriss Cruz MD Work Phone: [facility] Comment on above: Refill Request Start: 06-02-2022 Telephone encounter Chriss Cruz MD Work Phone: [facility] Comment on above: Blood Pressure Check Start: 06-02-2022 End: 06-02-2022 Nursing evaluation of patient and report Mi Nurse Work Phone: [facility] Comment on above: Essential hypertension (Primary Dx) Start: 05-19-2022 End: 05-19-[address] Chriss Cruz Work Phone: [facility] Work Phone: Start: 05-19-2022 End: 05-19-[address] Chriss Cruz Work Phone: [facility] Start: 05-10-2022 End: 05-10-[address] Chriss Cruz Work Phone: [facility] Start: 05-04-2022 Telephone encounter Chriss Cruz MD Work Phone: [facility] Comment on above: Blood Pressure Check Start: 05-04-2022 End: 05-04-2022 Nursing evaluation of patient and report Mi Nurse Work Phone: [facility] Comment on above: Essential hypertension (Primary Dx) Start: 05-03-[address] Chriss Cruz Work Phone: [facility] Start: 04-08-2022 Refill Chriss Cruz MD Work Phone: [facility] Comment on above: Refill Request Start: 03-30-2022 End: 03-30-2022 Patient encounter procedure Chriss Cruz MD Work Phone: [facility] Comment on above: Essential hypertension (Primary Dx); Moderate episode of recurrent major depressive disorder (HCC); Type 2 diabetes mellitus with stage 3a chronic kidney disease, with long-term current use of insulin (HCC); Cecum cancer (HCC); Seizure disorder (HCC); Benign paroxysmal positional vertigo, unspecified laterality; Closed nondisplaced fracture of phalanx of toe with routine healing, unspecified laterality, unspecified toe, subsequent encounter; Anemia, unspecified type Start: 02-13-2022 End: 02-13-2022 Emergency department patient visit Dr. Chriss Cruz Work Phone: [facility]Emergency Department Start: 02-10-2022 Telephone encounter Roberto Anderson Work Phone: Podiatry Comment on above: Results; Patient Update Start: 02-09-2022 Telephone encounter Roberto Anderson Work Phone: Podiatry Comment on above: Results Start: 02-09-2022 End: 02-09-2022 Patient encounter procedure Roberto Anderson Work Phone: Podiatry Comment on above: Diabetic ulcer of toe of left foot assoc iated with type 1 diabetes mellitus, limited to breakdown of skin (HCC) (Primary Dx); Closed nondisplaced fracture of proximal phalanx of lesser toe of left foot with routine healing, subsequent encounter Start: 02-08-2022 End: 02-08-[address] Chriss Cruz Work Phone: [facility] Start: 02-04-2022 Telephone encounter Candy Penn APRN.[employer]US TAKER Work Phone: Endocrinology Comment on above: Diabetic Eye Exam ([facility]) Bradycardia Start: 02-04-2022 End: 02-04-2022 Patient encounter procedure Cadny Penn APRN.[employer] C[employer]US TAKER Work Phone: Endocrinology Comment on above: OPENED IN ERROR (Primary Dx) Start: 02-01-2022 End: 02-01-2022 Patient encounter procedure [facility] Start: 01-31-2022 Patient encounter procedure Lisette Lovell DO Work Phone: Infectious Disease Comment on above: Physician To Physician Consult Start: 01-31-2022 Telephone encounter Roberto Suareztaylor Work Phone: Podiatry Comment on above: Patient Update Start: 01-28-2022 End: 01-28-2022 Subsequent hospital visit by physician Xr [facility] Work Phone: Radiology Comment on above: Osteomyelitis of toe (HCC) [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] Start: 01-28-2022 End: 01-28-2022 Patient encounter procedure Roberto Anderson Work Phone: Podiatry Comment on above: Type 1 diabetes mellitus with diabetic p olyneuropathy (HCC) (Primary Dx); 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, limited to breakdown of skin (HCC); Onychomycosis; Pain in toe of left foot; Pain in toe of right foot; Open nondisplaced fracture of proximal phalanx of lesser toe of left foot, initial encounter Start: 01-26-2022 End: 01-26-2022 Emergency department patient visit [facility] Start: 01-07-2022 Registered Recurring [facility] Start: 01-06-2022 Refill Chriss Cruz MD Work Phone: [facility] Comment on above: Refill Request (Out of medication) Start: 12-23-2021 Telephone encounter Chriss Cruz MD Work Phone: [facility] Comment on above: Results Start: 12-22-2021 Refill Roberto Suareztaylor Work Phone: Podiatry Comment on above: Refill Request Start: 12-14-2021 Telephone encounter Abimbola Amos PA-C Work Phone: [facility] Comment on above: Blood Pressure Check Start: 12-14-2021 End: 12-14-2021 Nursing evaluation of patient and report Mi Nurse Work Phone: [facility] Comment on above: Essential hypertension (Primary Dx) Start: 12-02-2021 Telephone encounter Abimbola Amos PA-C Work Phone: [facility] Comment on above: Results Start: 12-01-2021 Orders Only M Ilia Amos PA-C Work Phone: [facility] Comment on above: Acute renal disease (Primary Dx) Start: 11-29-2021 End: 11-29-2021 [facility] Start: 11-29-2021 Telephone encounter Chriss Cruz MD Work Phone: [facility] Comment on above: Patient Update Start: 11-27-2021 End: 11-27-2021 [facility] Start: 11-27-2021 End: 11-27-2021 Patient encounter procedure Chriss Cruz MD Work Phone: [facility] Comment on above: Edema of left lower leg (Primary Dx); Family history of DVT; Anemia, unspecified type; Stage 3a chronic kidney disease (HCC); Hyperkalemia; Cecum cancer (HCC); Essential hypertension; Type 1 diabetes mellitus with diabetic polyneuropathy (HCC); Pain of left lower extremity; Primary hypertension Start: 11-26-2021 Telephone encounter Chriss Cruz MD Work Phone: [facility] Comment on above: Results Start: 11-24-2021 End: 11-24-2021 Patient encounter procedure Chriss Cruz MD Work Phone: [facility] Comment on above: Hyperkalemia (Primary Dx); Primary hypertension; Hyponatremia; Type 1 diabetes mellitus with diabetic polyneuropathy (HCC); Anemia, unspecified type; Stage 3 chronic kidney disease, unspecified whether stage 3a or 3b CKD (HCC); Cecum cancer (HCC); Seizure disorder (HCC); Mixed hyperlipidemia; Essential hypertension Start: 11-22-2021 Telephone encounter Chriss Cruz MD Work Phone: [facility] Comment on above: ER F/U Start: 11-21-2021 End: 11-21-2021 [facility] Start: 11-19-2021 Telephone encounter [facility] MD [facility] Comment on above: Blood Pressure Check Results Start: 11-19-2021 End: 11-19-2021 Nursing evaluation of patient and report Mi Nurse Work Phone: [facility] Comment on above: Essential hypertension (Primary Dx) Procedures Date Procedure Procedure Detail Performing Clinician Start: 05-02-2025 Prostate specific antigen measurement Kimberlyn East MD Work Phone: Comment on above: This test was performed using the [employer] tPSA method. Measured values of a patient sample can vary depending on the testing procedure used. PSA values determined on patient samples by different testing procedures cannot be used interchangeably. If there is a change in PSA assays while monitoring therapy, sequential testing should be performed to confirm baseline values. Start: 04-23-2025 Hepatic function panel Lillian Alvaradootka DO Work Phone: Start: 01-27-2025 Glucose measurement, blood Interventiona l Rad Ihisschedule Work Phone: Start: 01-27-2025 Potassium serum plasma/whole blood Agnes Stefan Susan LOCKET MAKER-[employer]CIAL C[employer]US TAKER Work Phone: Start: 12-25-2024 Assay of ferritin Lillian Hall DO Work Phone: Start: 12-25-2024 Hepatic function panel Lillian Hall DO Work Phone: Start: 12-13-2024 Myocardial spect multiple studies Tyresedaysi Lui MBBS Work Phone: Start: 12-11-2024 Echo tthrc r-t 2d w/wom-mode compl spec&colr d Tyresedaysi Lui MBBS Work Phone: Start: 12-11-2024 Cta abdl aorta&bi iliofem w/contrast&postp Tyrese Sanya Anisa MBBS Work Phone: Start: 11-08-2024 Antibody screen Tyrese Anisa MBBS Work Phone: Start: 11-08-2024 Radiologic exam chest 2 views Tyrese Lu i MBBS Work Phone: Start: 11-08-2024 End: 11-08-2024 Albumin serum plasma/whole blood Tyrese Lange MBBS Work Phone: Comment on above: Result Comment: This test was performed on the [employer] Immunoassay platform which is a 2-step sandwich chemiluminescent immunoassay. It is important to note that assays using different manufacturers and/or methods may not be comparable. Performed By: #### C [id number] #### [facility] (DEFAULT) [address] [address] Start: 11-08-2024 ALCOHOL (ETHANOL),BLOOD Tyrese Lange MBBS Work Phone: Start: 11-08-2024 CBC AND ELECTRONIC DIFF Tyrese Lange MBBS Work Phone: Start: 11-08-2024 Complete blood count with white cell differential, automated Tyrese Lange MBBS Work Phone: Start: 11-08-2024 End: 11-08-2024 Hepatitis b surf antibody hbsab Tyrese hahn MBBS Work Phone: Start: 11-08-2024 Iaad ia hepatitis b surface antigen Tyrese Lange MBBS Work Phone: Start: 11-08-2024 Antibody screen TYRESE LANGE Comment on above: Performed By: #### [id number] #### [facility] (DEFAULT) [address] [place] [address] Start: 08-14-2024 Estimated creatinine clearance Kimberlyn woods MD Work Phone: Start: 08-14-2024 Measurement of renal function Kimberlyn wong MD Work Phone: Comment on above: GFR Calc Start: 08-14-2024 Total iron binding capacity measurement Kimberlyn East MD Work Phone: Start: 06-26-2024 Clostridium difficile detection Kimberlyn dumont MD Work Phone: Start: 06-26-2024 Lactoferrin measurement Kimberlyn East MD Work Phone: Start: 06-26-2024 Measurement of occult blood in stool specimen using immunoassay Kimberlyn East MD Work Phone: Start: 06-05-2024 CBCDIF (EXTERNAL) [facility] Provider Start: 06-05-2024 Assay of phosphorus inorganic Kimberlyn wong MD Work Phone: Start: 06-05-2024 Phosphorus measurement Kimberlyn East MD Work Phone: Start: 05-29-2024 Folic acid measurement Kimberlyn East MD Work Phone: Start: 12-08-2023 US urinary tract DO Luciana Garcia Work Phone: Start: 11-03-2023 Computed tomography angiography of abdominal and/or pelvic blood vessel Dr. Chriss Cruz Work Phone: Start: 11-03-2023 CT of thorax with contrast Dr. Chriss florez Work Phone: Start: 10-16-2023 SARS-CoV-2, Influenza & RSV (PCR) Dr. Dasha Cruz Work Phone: Start: 08-09-2023 Computed tomography of abdomen and pelvis with contrast Dr. Chriss Cruz Work Phone: Start: 08-02-[address] Chriss florez Work Phone: Start: 06-23-2023 Hemoglobin A1c/Hemoglobin.total in Blood Candy Penn APRN.CNP Work Phone: Start: 05-25-2023 CT of head without contrast Dr. Chriss Cruz Work Phone: Start: 05-25-2023 Plain chest X-ray Dr. Chriss Cruz Work Phone: Start: 11-25-2022 MRI of abdomen with contrast Dr. Chriss Cruz Work Phone: Start: 11-25-2022 MRI of brain with contrast Dr. Chriss florez Work Phone: Start: 03-31-[address] Chriss florez Work Phone: Start: 11-24-[address] Chriss florez Work Phone: Start: 11-23-2022 CT of head without contrast Dr. Chriss Cruz Work Phone: Start: 11-23-2022 Plain chest X-ray Dr. Chriss Cruz Work Phone: Start: 10-27-2022 Allergen spec ige crude allergen extract each Kimberlyn East MD Work Phone: Start: 10-06-2022 [employer] COVID-19 BIVALENT BOOSTER VACCINE, AGE 12+ YR Chriss Cruz MD Work Phone: Start: 09-20-2022 Gluc bld gluc mntr dev cleared fda spec home use Candy Kupiec LOCKET MAKER.COMMERCIAL CENSUS TAKER Work Phone: Start: 09-20-2022 Hemoglobin A1c/Hemoglobin.total in Blood Candy Kupiec LOCKET MAKER.COMMERCIAL CENSUS TAKER Work Phone: Start: 06-17-2022 Hemoglobin A1c/Hemoglobin.total in Blood Candy Kupiec LOCKET MAKER.COMMERCIAL CENSUS TAKER Work Phone: Start: 02-04-2022 Gluc bld gluc mntr dev cleared fda spec home use Candy Kupiec LOCKET MAKER.COMMERCIAL CENSUS TAKER Work Phone: Start: 02-04-2022 Hemoglobin A1c/Hemoglobin.total in Blood Candy Kupiec LOCKET MAKER.COMMERCIAL CENSUS TAKER Work Phone: Start: 01-28-2022 Radex foot complete minimum 3 views Roberto Suraeztaylor Work Phone: Start: 01-26-2022 Bacteria identified in Blood by Culture Start: 01-26-2022 X-ray of both feet Start: 08-26-2015 Colonoscopy Mi Nurse Work Phone: Bacteria identified in Blood by Culture Dr. Chriss Cruz Work Phone: Measurement of occul t blood in stool specimen using immunoassay Dr. Chriss Cruz Work Phone: Plan of Treatment Date Care Activity Detail Author Start: 11-08-2029 Prostate specific antigen measurement Prostate Cancer Screening Discussion [facility] Start: 12-02-2027 Prostate specific antigen measurement Prostate Cancer Screening Discussion [facility] Start: 02-24-2027 Tetanus vaccination TETANUS [facility] Start: 02-24-2027 [facility] Start: 04-29-2026 End: 04-29-2026 Patient encounter procedure 04/29/2026 1:00 PM EDT Office Visit Gastroenterology and Hepatology Outpatient Care [facility] [address] [facility] [address] [place] [address] Lillian Hall, DO [address] [place] [address] Gastroenterology and Hepatology Outpatient Care [facility] Start: 11-08-2025 Complete blood count Hemoglobin/Hematocrit [facility] Start: 11-08-2025 Creatinine measurement Serum Creatinine [facility] Start: 11-08-2025 Potassium [Moles/volume] in Serum or Plasma POTASSIUM [facility] Start: 11-08-2025 Prostate specific antigen measurement PROSTATE CANCER SCREENING DISCUSSION [facility] Start: 07-03-2025 Screening for malignant neoplasm of colon COLORECTAL CANCER SCREENING DISCUSSION [facility] Start: 06-30-2025 Patient encounter procedure Registered [facility] [place] Work Phone: Start: 06-30-2025 End: 06-30-2025 Patient encounter procedure Polyneuropathy -[facility] Work Phone: Start: 06-25-2025 End: 06-25-2025 Patient encounter procedure ESRD (end stage renal disease) on dialysis -[facility] Work Phone: Start: 06-05-2025 Complete blood count Hemoglobin/Hematocrit [facility] Start: 06-04-2025 Patient discharge [facility] Start: 05-11-2025 Hemoglobin A1c measurement [facility] Start: 05-02-2025 Prostate specific antigen measurement ASSAY OF PSA TOTAL [facility] Start: 04-28-2025 Influenza vaccination [facility] Start: 04-23-2025 End: 04-23-2025 Patient encounter procedure [facility] Start: 01-01-2025 End: 12-25-2025 CT Abdomen WO and W contrast IV CT ABDOMEN WITH AND WITHOUT CONTRAST Imaging Routine Hepatosplenomegaly Liver lesion Expected: 01/01/2025 (Approximate), Expires: 12/25/2025 [facility] Comment on above: Expected: 01/01/2025 (Approximate), Expi res: 12/25/2025 Start: 12-13-2024 End: 12-13-2024 Patient encounter procedure 12/13/2024 8:30 AM EDT Appointment Imaging [address] [address] Tyrese Lange MBBS [address] [place] [id number] [facility] Start: 12-13-2024 Subsequent hospital visit by physician 12/13/2024 8:30 AM EDT Hospital Encounter Imaging [address] [address] Tyrese Lange MBBS [address] [place] [id number] [facility] Start: 12-11-2024 End: 12-11-2024 Patient encounter procedure [facility] [place] Start: 11-20-2024 End: 11-20-2024 [facility] Comment on above: KTP Pre-transplant evaluation for kidney transplant [Z01.818] CT abd/pelvis-NOT needed Start: 11-08-2024 End: 11-08-2025 C-PEPTIDE C-PEPTIDE Lab Routine Pre-transplant evaluation for kidney transplant Expected: 11/08/2024, Expires: 11/08/2025 [facility] Comment on above: Expected: 11/08/2024, Expires: Start: 11-08-2024 End: 11-08-2025 CTA Abdominal Aorta and Bilateral Runoff Vessels W contrast IV CT ANGIO ABDOMINAL AORTA WITH RUNOFF Imaging Routine Pre-transplant evaluation for kidney transplant ESRD (end stage renal disease) on dialysis Expected: 11/08/2024, Expires: 11/08/2025 [facility] Comment on above: Expected: 11/08/2024, Expires: Start: 11-08-2024 End: 11-08-2025 Echocardiography ECHOCARDIOGRAM Echocardiography Routine Pre-transplant evaluation for kidney transplant ESRD (end stage renal disease) on dialysis Expected: 11/08/2024, Expires: 11/08/2025 [facility] Comment on above: Expected: 11/08/2024, Expires: Start: 11-08-2024 End: 11-08-2025 ETHANOL (ALCOHOL), URINE ETHANOL (ALCOHOL), URINE Lab Routine Pre-transplant evaluation for kidney transplant Expected: 11/08/2024, Expires: 11/08/2025 [facility] Comment on above: Expected: 11/08/2024, Expires: Start: 11-08-2024 End: 11-08-2025 HLA TYPING (SOLID ORGAN) [facility] Comment on above: Expected: 11/08/2024, Expires: Start: 11-08-2024 End: 11-08-2025 HSV IGM ANTIBODY [facility] Comment on above: Expected: 11/08/2024, Expires: Start: 11-08-2024 End: 11-08-2025 M TUBERCULOSIS BY QUANTIFERON, BLD [facility] Comment on above: Expected: 11/08/2024, Expires: Start: 11-08-2024 End: 11-08-2025 PRA CLASS (PRE-TRANSPLANT) [facility] Comment on above: Expected: 11/08/2024, Expires: Start: 11-08-2024 End: 11-08-2025 SPECT Heart perfusion at rest and W stress and W radionuclide IV NUC MYOCARD PERF STRESS MIBI EXERCISE Cardiac Nuclear Medicine Routine Pre-transplant evaluation for kidney transplant ESRD (end stage renal disease) on dialysis Expected: 11/08/2024, Expires: 11/08/2025 [facility] Comment on above: Expected: 11/08/2024, Expires: Start: 11-08-2024 End: 11-08-2025 TOXICOLOGY DRUG SCREEN, SERUM [facility] Comment on above: Expected: 11/08/2024, Expires: Start: 10-30-2024 Patient discharge [facility] Start: 06-07-2024 Administration of blood product [facility] Start: 06-07-2024 [facility] Start: 05-30-2024 Administration of blood product [facility] Start: 05-30-2024 [facility] Start: 05-22-2024 Venous catheter care management [facility] Start: 04-28-2024 COVID-19 VACCINE ( season) COVID-19 VACCINE ( season) [facility] Start: 04-28-2024 Covid-19 Vaccine ( season) Covid-19 Vaccine ( season) [facility] Start: 04-28-2024 Influenza vaccination Influenza Vaccine (#1) [facility] Start: 02-08-2024 Glaucoma screening Dilated Retinal Exam [facility] Start: 02-08-2024 Hepatitis C antibody, confirmatory test DILATED RETINAL EXAM [facility] Start: 02-02-2024 3 comp foot exam completed DIABETIC FOOT EXAM [facility] bryan Start: 02-02-2024 ANNUAL PCP TEAM CHRONIC DISEASE VISIT ANNUAL PCP TEAM CHRONIC DISEASE VISIT [facility] Start: 02-02-2024 Diabetic foot examination Diabetic Foot Exam [facility] Start: 02-02-2024 SHINGRIX VACCINE (1 of 2) SHINGRIX VACCINE (1 of 2) Stan Casey Comment on above: Postponed from 1987 (Declined at t his time) Start: 01-06-2024 Creatinine measurement Serum Creatinine [facility] Start: 01-06-2024 SERUM CREATININE SERUM CREATININE [facility] Start: 12-30-2023 ANNUAL PCP TEAM CHRONIC DISEASE VISIT ANNUAL PCP TEAM CHRONIC DISEASE VISIT [facility] Start: 12-23-2023 Hemoglobin A1c measurement HbA1C [facility] Start: 12-23-2023 Hemoglobin A1c/Hemoglobin.total in Blood HbA1C [facility] Start: 12-18-2023 Venous catheter care management [facility] Start: 12-09-2023 HEMOGLOBIN/HEMATOCRIT HEMOGLOBIN/HEMATOCRIT [facility] Start: 12-09-2023 SERUM CREATININE SERUM CREATININE [facility] Start: 12-09-2023 Patient discharge [facility] Start: 12-09-2023 Venous catheter care management [facility] Start: 12-08-2023 Thyroid stimulating hormone measurement [facility] Start: 12-08-2023 [facility] Start: 12-07-2023 Following clinical pathway protocol [facility] Start: 12-07-2023 Ambulation without limitation [facility] Start: 12-07-2023 Assessment of risk of venous thromboembolism [facility] Start: 12-07-2023 Care regimes management [facility] Start: 12-07-2023 Incentive spirometry [facility] Start: 12-07-2023 Insertion of catheter into peripheral vein [facility] Start: 12-07-2023 Measuring intake and output [facility] Start: 12-07-2023 Notification of physician [facility] Start: 12-07-2023 Oxygen therapy [facility] Start: 12-07-2023 Providing care according to standard [facility] Start: 12-07-2023 Referral to director digital communications [facility] Start: 12-07-2023 Referral to service [facility] Start: 12-07-2023 [facility] Start: 12-07-2023 Verification routine [facility] Start: 12-07-2023 Admission procedure [facility] Start: 12-07-2023 Collection venous blood venipuncture ROUTINE VENIPUNCTURE [facility] Start: 12-07-2023 Comprehensive metabolic panel COMPREHEN METABOLIC PANEL [facility] Start: 12-07-2023 Patient referral to dietitian [facility] Start: 12-07-2023 [facility] Start: 12-02-2023 ANNUAL PCP TEAM CHRONIC DISEASE VISIT ANNUAL PCP TEAM CHRONIC DISEASE VISIT [facility] Start: 12-02-2023 HEMOGLOBIN/HEMATOCRIT HEMOGLOBIN/HEMATOCRIT [facility] Start: 12-02-2023 Hepatitis B screening URINE ALBUMIN:CREATININE RATIO [facility] Start: 12-02-2023 Hepatitis B surface antibody level LDL CHOLESTEROL [facility] Start: 12-02-2023 SERUM CREATININE SERUM CREATININE [facility] Start: 11-03-2023 Venous catheter care management [facility] Start: 10-16-2023 [facility] Start: 10-06-2023 ANNUAL PCP TEAM CHRONIC DISEASE VISIT ANNUAL PCP TEAM CHRONIC DISEASE VISIT [facility] Start: 10-06-2023 COLORECTAL CANCER SCREENING COLORECTAL CANCER SCREENING [facility] Comment on above: Postponed from 2013 (Declined at t his time) Start: 08-09-2023 Venous catheter care management [facility] Start: 08-02-2023 Egd band ligation esophgeal/gastric varices EGD VARICES LIGATION [facility] Start: 08-02-2023 Venous catheter care management [facility] Start: 08-02-2023 Patient discharge [facility] Start: 07-25-2023 Celiac disease screen [facility] Start: 07-25-2023 IgE [Units/volume] in Serum or Plasma [facility] Start: 07-25-2023 IgG subclass panel [Mass/volume] - Serum [facility] Start: 07-25-2023 Serum immunofixation [facility] Start: 07-25-2023 [facility] Start: 06-02-2023 Hemoglobin A1c/Hemoglobin.total in Blood HBA1C [facility] Start: 05-25-2023 Venous catheter care management [facility] Start: 04-28-2023 Covid-19 Vaccine ( season) Covid-19 Vaccine ( season) [facility] Start: 04-28-2023 Influenza vaccination [facility] Start: 03-30-2023 ANNUAL PCP TEAM CHRONIC DISEASE VISIT ANNUAL PCP TEAM CHRONIC DISEASE VISIT [facility] Start: 02-24-2023 Influenza vaccination INFLUENZA (#1) [facility] Comment on above: Postponed from 04/28/2022 (Declined at t his time) Start: 02-15-2023 ANNUAL PCP TEAM CHRONIC DISEASE VISIT ANNUAL PCP TEAM CHRONIC DISEASE VISIT [facility] Start: 02-04-2023 HEMOGLOBIN/HEMATOCRIT HEMOGLOBIN/HEMATOCRIT [facility] Start: 02-04-2023 SERUM CREATININE SERUM CREATININE [facility] Start: 02-03-2023 Hepatitis C antibody, confirmatory test DILATED RETINAL EXAM [facility] Start: 12-29-2022 End: 02-28-2023 Basic metabolic 2000 panel - Serum or Plasma [facility] Work Phone: Comment on above: Expected: 12/29/2022, Expires: Start: 12-27-2022 Venous catheter care management [facility] Start: 12-22-2022 ANNUAL PCP TEAM CHRONIC DISEASE VISIT ANNUAL PCP TEAM CHRONIC DISEASE VISIT [facility] Start: 12-22-2022 HEMOGLOBIN/HEMATOCRIT HEMOGLOBIN/HEMATOCRIT [facility] Start: 12-22-2022 SERUM CREATININE SERUM CREATININE [facility] Start: 12-19-2022 End: 02-18-2023 ALBUMIN/CREAT RATIO RND UR ALBUMIN/CREAT RATIO RND UR Lab Routine 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) Type 1 diabetes mellitus with stage 3 chronic kidney disease, unspecified whether stage 3a or 3b CKD (HCC) 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) Expected: 12/19/2022 (Approximate), Expires: 02/18/2023 [facility] Work Phone: Comment on above: Expected: 12/19/2022 (Approximate), Expi res: 02/18/2023 Start: 12-19-2022 End: 02-18-2023 BIOAVAIL TESTO/SHBG, ADULT MALE BIOAVAIL TESTO/SHBG, ADULT MALE Lab Routine Hypogonadism in male Expected: 12/19/2022 (Approximate), Expires: 02/18/2023 [facility] Work Phone: Comment on above: Expected: 12/19/2022 (Approximate), Expi res: 02/18/2023 Start: 12-19-2022 End: 02-18-2023 Comprehensive metabolic 2000 panel - Serum or Plasma COMP METABOLIC PANEL Lab Routine 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) Type 1 diabetes mellitus with stage 3 chronic kidney disease, unspecified whether stage 3a or 3b CKD (HCC) 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) Expected: 12/19/2022 (Approximate), Expires: 02/18/2023 [facility] Work Phone: Comment on above: Expected: 12/19/2022 (Approximate), Expi res: 02/18/2023 Start: 12-19-2022 End: 02-18-2023 Hemoglobin A1c in Blood HGB A1C Lab Routine 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) Type 1 diabetes mellitus with stage 3 chronic kidney disease, unspecified whether stage 3a or 3b CKD (HCC) 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) Expected: 12/19/2022 (Approximate), Expires: 02/18/2023 [facility] Work Phone: Comment on above: Expected: 12/19/2022 (Approximate), Expi res: 02/18/2023 Start: 12-19-2022 Hemoglobin A1c/Hemoglobin.total in Blood HBA1C [facility] Start: 12-19-2022 End: 02-18-2023 Lipid 1996 panel - Serum or Plasma LIPID PANEL BASIC Lab Routine 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) Type 1 diabetes mellitus with stage 3 chronic kidney disease, unspecified whether stage 3a or 3b CKD (HCC) 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) Mixed hyperlipidemia Expected: 12/19/2022 (Approximate), Expires: 02/18/2023 [facility] Work Phone: Comment on above: Expected: 12/19/2022 (Approximate), Expi res: 02/18/2023 Start: 12-19-2022 End: 02-18-2023 PSA/PROSTSPECAG SCRN PSA/PROSTSPECAG SCRN Lab Routine Hypogonadism in male Encounter for screening for malignant neoplasm of prostate Expected: 12/19/2022 (Approximate), Expires: 02/18/2023 [facility] Work Phone: Comment on above: Expected: 12/19/2022 (Approximate), Expi res: 02/18/2023 Start: 12-19-2022 End: 02-18-2023 Thyrotropin [Units/volume] in Serum or Plasma TSH BLD Lab Routine 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) Type 1 diabetes mellitus with stage 3 chronic kidney disease, unspecified whether stage 3a or 3b CKD (HCC) 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) Expected: 12/19/2022 (Approximate), Expires: 02/18/2023 [facility] Work Phone: Comment on above: Expected: 12/19/2022 (Approximate), Expi res: 02/18/2023 Start: 12-18-2022 End: 02-17-2023 carBAMazepine [Mass/volume] in Serum or Plasma CARBAMAZEPI/TEGRETOL Lab Routine Seizure disorder (HCC) Trigeminal neuralgia Expected: 12/18/2022, Expires: 02/17/2023 [facility] Work Phone: Comment on above: Expected: 12/18/2022, Expires: 3 Start: 12-07-2022 COLORECTAL CANCER SCREENING COLORECTAL CANCER SCREENING [facility] Start: 12-07-2022 FECAL OCCULT BLOOD FECAL OCCULT BLOOD [facility] Start: 12-07-2022 Screening for malignant neoplasm of colon [facility] Start: 12-07-2022 SERUM CREATININE SERUM CREATININE [facility] Start: 12-02-2022 End: 02-01-2023 Basic metabolic 2000 panel - Serum or Plasma BASIC METABOLIC PNL Lab Routine Gastrointestinal hemorrhage, unspecified gastrointestinal hemorrhage type Stage 3a chronic kidney disease (HCC) Expected: 12/02/2022, Expires: 02/01/2023 [facility] Work Phone: Comment on above: Expected: 12/02/2022, Expires: 3 Start: 12-02-2022 End: 02-01-2023 CBC W Auto Differential panel - Blood CBC + DIFF Lab Routine Gastrointestinal hemorrhage, unspecified gastrointestinal hemorrhage type Stage 3a chronic kidney disease (HCC) Expected: 12/02/2022, Expires: 02/01/2023 [facility] Work Phone: Comment on above: Expected: 12/02/2022, Expires: Start: 12-01-2022 Covid-19 Vaccine (6 - Moderna risk series) Covid-19 Vaccine (6 - Moderna risk series) [facility] Start: 11-30-2022 ANNUAL PCP TEAM CHRONIC DISEASE VISIT ANNUAL PCP TEAM CHRONIC DISEASE VISIT [facility] Start: 11-30-2022 SERUM CREATININE SERUM CREATININE [facility] Start: 11-28-2022 [facility] Start: 11-27-2022 ANNUAL PCP TEAM CHRONIC DISEASE VISIT ANNUAL PCP TEAM CHRONIC DISEASE VISIT [facility] Start: 11-27-2022 Prothrombin time [facility] Start: 11-27-2022 [facility] Start: 11-26-2022 HEMOGLOBIN/HEMATOCRIT HEMOGLOBIN/HEMATOCRIT [facility] Start: 11-26-2022 SERUM CREATININE SERUM CREATININE [facility] Start: 11-26-2022 Patient discharge [facility] Start: 11-25-2022 Recommendation to continue with treatment [facility] Start: 11-24-2022 ANNUAL PCP TEAM CHRONIC DISEASE VISIT ANNUAL PCP TEAM CHRONIC DISEASE VISIT [facility] Start: 11-24-2022 Catheterization of vein [facility] Start: 11-23-2022 Referral to gastroenterology service [facility] Start: 11-23-2022 Application of intermittent pneumatic compression device [facility] Start: 11-23-2022 Venous catheter care management [facility] Start: 11-23-2022 Assessment of risk of venous thromboembolism [facility] Start: 11-23-2022 Cardiac monitoring [facility] Start: 11-23-2022 Care regimes management [facility] Start: 11-23-2022 Insertion of catheter into peripheral vein [facility] Start: 11-23-2022 Measuring intake and output [facility] Start: 11-23-2022 Providing care according to standard [facility] Start: 11-23-2022 Provision of activity privileges [facility] Start: 11-23-2022 Referral to service [facility] Start: 11-23-2022 [facility] Start: 11-23-2022 Following clinical pathway protocol [facility] Start: 11-23-2022 CT of head without contrast Brain/Head without Contrast [facility] Start: 11-23-2022 CT Unspecified body region WO contrast [facility] Start: 11-23-2022 Electroencephalogram [facility] Start: 11-23-2022 Verification routine [facility] Start: 11-23-2022 Admission procedure [facility] Start: 11-23-2022 Leukocyte reduced red blood cells [facility] Start: 11-23-2022 End: 11-23-2022 [facility] Start: 11-23-2022 Administration of blood product [facility] Start: 11-23-2022 [facility] Start: 11-23-2022 Patient referral to dietitian [facility] Start: 11-19-2022 SERUM CREATININE SERUM CREATININE [facility] Start: 11-10-2022 Hepatitis B screening URINE ALBUMIN:CREATININE RATIO [facility] Start: 11-10-2022 Hepatitis B surface antibody level LDL CHOLESTEROL [facility] Start: 11-10-2022 SERUM CREATININE SERUM CREATININE [facility] Start: 10-26-2022 3 comp foot exam completed DIABETIC FOOT EXAM [facility] Start: 10-13-2022 ANNUAL PCP TEAM CHRONIC DISEASE VISIT ANNUAL PCP TEAM CHRONIC DISEASE VISIT [facility] Start: 10-07-2022 HEMOGLOBIN/HEMATOCRIT HEMOGLOBIN/HEMATOCRIT [facility] Start: 09-17-2022 Hemoglobin A1c/Hemoglobin.total in Blood HBA1C [facility] Start: 05-07-2022 Hemoglobin A1c/Hemoglobin.total in Blood HBA1C [facility] Start: 04-28-2022 Influenza vaccination INFLUENZA (#1) [facility] Start: 04-20-2022 COLORECTAL CANCER SCREENING COLORECTAL CANCER SCREENING [facility] Start: 04-20-2022 FECAL OCCULT BLOOD FECAL OCCULT BLOOD [facility] Start: 02-02-2022 Hepatitis C antibody, confirmatory test DILATED RETINAL EXAM [facility] Start: 01-29-2022 Hemoglobin A1c/Hemoglobin.total in Blood HBA1C [facility] Start: 01-27-2022 COVID-19 VACCINE (5 - Booster for Moderna series) COVID-19 VACCINE (5 - Booster for Moderna series) [facility] Start: 01-26-2022 Bacteria identified in Blood by Culture Blood Culture [facility] Work Phone: Start: 01-26-2022 [facility] Work Phone: Start: 12-08-2021 End: 02-07-2022 Basic metabolic 2000 panel - Serum or Plasma BASIC METABOLIC PNL Lab Routine Acute renal disease Expected: 12/08/2021, Expires: 02/07/2022 [facility] Work Phone: Comment on above: Expected: 12/08/2021, Expires: 2 Start: 11-26-2021 End: 01-26-2022 Basic metabolic 2000 panel - Serum or Plasma [facility] Work Phone: Comment on above: Expected: 11/26/2021, Expires: 2 Start: 11-26-2021 End: 11-24-2022 CBC W Auto Differential panel - Blood [facility] Work Phone: Comment on above: Expected: 11/26/2021, Expires: 3 Expected: 11/26/2021 , Expires: 01/26/2022 Start: 11-26-2021 End: 11-24-2022 FERRITIN BLD FERRITIN BLD Lab Routine Anemia, unspecified type Expected: 11/26/2021, Expires: 11/24/2022 [facility] Work Phone: Comment on above: Expected: 11/26/2021, Expires: 3 Start: 11-26-2021 End: 11-24-2022 Folate [Mass/volume] in Serum or Plasma FOLATE SERUM Lab Routine Anemia, unspecified type Expected: 11/26/2021, Expires: 11/24/2022 [facility] Work Phone: Comment on above: Expected: 11/26/2021, Expires: 3 Start: 11-26-2021 End: 11-24-2022 IRON + TIBC IRON + TIBC Lab Routine Anemia, unspecified type Expected: 11/26/2021, Expires: 11/24/2022 [facility] Work Phone: Comment on above: Expected: 11/26/2021, Expires: 3 Start: 11-26-2021 End: 11-24-2022 VITAMIN B12 BLOOD VITAMIN B12 BLOOD Lab Routine Anemia, unspecified type Expected: 11/26/2021, Expires: 11/24/2022 [facility] Work Phone: Comment on above: Expected: 11/26/2021, Expires: 3 Start: 11-24-2021 End: 11-24-2022 Hemoglobin.gastrointestina l.lower [Presence] in Stool by Immunoassay FECAL OCCULT BLOOD TEST Lab Routine Anemia, unspecified type Expected: 11/24/2021, Expires: 11/24/2022 [facility] Work Phone: Comment on above: Expected: 11/24/2021, Expires: 3 Start: 07-29-2021 Venous catheter care management [facility] Start: 01-22-2021 Venous catheter care management [facility] Start: 12-11-2020 Venous catheter care management [facility] Start: 10-02-2020 Venous catheter care management [facility] Start: 07-26-2019 [place] of [place]-a-cath [facility] Start: 07-26-2019 Irrigation of vascular catheter [facility] Start: 2018 SHINGRIX VACCINE (1 of 2) SHINGRIX VACCINE (1 of 2) [facility] Start: 2018 Zoster vaccine hzv live for subcutaneous use ZOSTER (SHINGLES) VACCINE (1 of 2) [facility] Start: 09-27-2018 [place] [facility] Start: 09-27-2018 Irrigation of vascular catheter [facility] Start: 06-21-2018 [place] [facility] Start: 06-21-2018 Irrigation of vascular catheter [facility] Start: 05-24-2018 [place] [facility] Start: 05-24-2018 Irrigation of vascular catheter [facility] Start: 10-18-2017 [facility] Start: 08-26-2016 Colonoscopy COLONOSCOPY [facility] Start: 08-26-2016 Screening for malignant neoplasm of colon [facility] Start: 05-28-2015 PNEUMOCOCCAL (3 - PCV) PNEUMOCOCCAL (3 - PCV) [facility] Start: 2013 COLOGUARD (FIT-DNA) COLOGUARD (FIT-DNA) [facility] Start: [address] COLONOGRAPHY [facility] Start: 2013 Screening for malignant neoplasm of colon [facility] Start: 2013 SIGMOIDOSCOPY SIGMOIDOSCOPY [facility] Start: 2008 Lipid panel LIPID SCREENING [facility] Start: 1987 HEPATITIS B (1 of 3 - Risk 3-dose series) HEPATITIS B (1 of 3 - Risk 3-dose series) [facility] Start: 1987 SHINGRIX VACCINE (1 of 2) SHINGRIX VACCINE (1 of 2) [facility] Start: 1986 Anxiety Screening Anxiety Screening [facility] Start: 1986 BP CONTROLLED (<130/80) [facility] Start: 1968 Diabetic foot examination DIABETIC FOOT EXAM [facility] Start: 1968 Glaucoma screening EYE EXAM [facility] Start: 1968 HEPATITIS B (1 of 3 - 3-dose series) HEPATITIS B (1 of 3 - 3-dose series) [facility] Start: 1968 Lipid panel LIPIDS [facility] Start: 1968 Urine screening for protein URINE MICROALBUMIN TEST [facility] AFP TUMOR MARKER AFP TUMOR MARKE R Lab Routine Liver lesion Portal hypertension 04/23/2025 3:30 PM EDT [facility] Alanine aminotransfe rase [Enzymatic activity/volume] in Serum or Plasma [facility] Albumin [Mass/volume ] in Serum or Plasma [facility] Albumin [Moles/volum e] in Serum or Plasma [facility] Albumin/Globulin ratio [facility] Alkaline phosphatase [Enzymatic activity/volume] in Serum or Plasma [facility] KENNETH SCREEN IFA KENNETH SCREEN IFA L ab Routine Hepatosplenomegaly 12/25/2024 3:40 PM EDT [facility] Anion gap measurement [facility] ANTI MITOCHONDRIAL ANTIBODY ANTI MITOCHONDRIAL ANTIBODY Lab Routine Hepatosplenomegaly 12/25/2024 3:40 PM EDT [facility] ANTI SMOOTH MUSCLE ANTIBODY ANTI SMOOTH MUSCLE ANTIBODY Lab Routine Hepatosplenomegaly 12/25/2024 3:40 PM EDT [facility] Aspartate aminotrans ferase [Enzymatic activity/volume] in Serum or Plasma [facility] Bacteria identified in Wound by Culture WOUND CULTURE AND GRAM STAIN Microbiology Routine 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, limited to breakdown of skin ([facility]) 01/28/2022 2:28 PM EDT [facility] Work Phone: Bilirubin, total measurement [facility] Blood chemistry [facility] Work Phone: BUN/Creatinine ratio [facility] Calcium [Mass/volume ] in Serum or Plasma [facility] carBAMazepine [Mass/volume] in Serum or Plasma [facility] Work Phone: carBAMazepine [Mass/volume] in Serum or Plasma [facility] Carbon dioxide, tota l [Moles/volume] in Serum or Plasma [facility] Carcinoembryonic Ag [Mass/volume] in Serum or Plasma [facility] Work Phone: CBC W Auto Different ial panel - Blood [facility] Work Phone: CBC W Auto Different ial panel - Blood [facility] Ceruloplasmin [Mass/volume] in Serum or Plasma [facility] Chloride [Moles/volu me] in Serum or Plasma [facility] Copper [Moles/volume ] in Serum or Plasma [facility] Creatinine [Moles/vo lume] in Serum or Plasma [facility] CT Abdomen and Pelvi s W contrast IV [facility] Work Phone: CT Abdomen and Pelvi s W contrast IV [facility] CT Abdomen and Pelvi s W contrast IV [facility] End: 04-05-2025 CT Abdomen WO and W contrast IV [facility] Comment on above: 1 Occurrences starting 04/05/2025 until 04/05/2025 CT Chest W contrast IV [facility] Work Phone: CT Chest W contrast IV [facility] Electrophoresis: [id number] [facility] Electrophoresis: demond ma globulin [facility] Erythrocyte mean corpuscular volume determination [facility] Erythrocyte sediment ation rate [facility] Work Phone: Erythropoietin (EPO) [Units/volume] in Serum or Plasma [facility] Work Phone: Ferritin [Mass/volum e] in Serum or Plasma [facility] Work Phone: Folate [Mass/volume] in Serum or Plasma [facility] Work Phone: Globulin measurement [facility] Glucose [Mass/volume ] in Serum or Plasma GLUCOSE, BLOOD (POC) Lab Routine 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) Type 1 diabetes mellitus with stage 3 chronic kidney disease, unspecified whether stage 3a or 3b CKD (HCC) 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) Ordered: 09/20/2022 [facility] Work Phone: Comment on above: Ordered: 09/20/2022 Glucose [Mass/volume ] in Serum or Plasma [facility] Hematocrit [Volume Fraction] of Blood [facility] Hemoglobin [Mass/vol ume] in Blood [facility] [facility] End: 12-30-2024 HEPATIC WEDGE PRESSURE/VENO [facility] Work Phone: Comment on above: One Time for 1 Occurrences starting 12/2024 until 12/30/2024 Hepatitis A virus Ig M Ab [Presence] in Serum [facility] Hepatitis B core ant ibody measurement, IgM type [facility] Hepatitis B surface antigen measurement [facility] Hepatitis C antibody measurement [facility] IgA [Mass/volume] in Serum or Plasma [facility] IgG [Mass/volume] in Serum or Plasma [facility] IgG subclass 1 [Mass/volume] in Serum [facility] IgG subclass 2 [Mass/volume] in Serum [facility] IgG subclass 3 [Mass/volume] in Serum [facility] IgG subclass 4 [Mass/volume] in Serum [facility] IgM [Mass/volume] in Serum or Plasma [facility] Immunoglobulin measurement [facility] Work Phone: Iron and Iron bindin g capacity panel - Serum or Plasma [facility] Work Phone: Leukocytes [#/volume ] in Blood [facility] Magnesium [Mass/volu me] in Serum or Plasma [facility] Mean corpuscular hemoglobin concentration determination [facility] Mean corpuscular hemoglobin determination [facility] Measurement of immunoglobulin A in serum specimen [facility] Measurement of renal function [facility] Mitochondria Ab [Pre sence] in Serum [facility] Neutrophil count [facility] Neutrophil cytoplasm ic Ab.classic [Units/volume] in Serum [facility] Neutrophil percent differential count [facility] P-ANCA measurement [facility] Patient Education [facility] Work Phone: Patient referral [facility] Work Phone: PHOSPHATIDYLETHANOL (PETH), WHOLE BLOOD QUANTITATIVE PHOSPHATIDYLETHANOL (PETH), WHOLE BLOOD QUANTITATIVE Lab Routine Hepatosplenomegaly 12/25/2024 3:41 PM EDT [facility] Platelets [#/volume] in Blood [facility] Potassium [Moles/vol ume] in Serum or Plasma [facility] Protein electrophore sis panel - Serum or Plasma [facility] Radionuclide gastric emptying study [facility] Red blood cell count [facility] Red cell distributio n width determination [facility] Reticulocyte count [facility] Work Phone: Serum immunofixation [facility] Work Phone: Serum inorganic phos phate measurement [facility] Smooth muscle Ab [Presence] in Serum [facility] Sodium [Moles/volume ] in Serum or Plasma [facility] End: 01-27-2025 SURG PATH REQUEST [facility] Work Phone: Comment on above: One Time for 1 Occurrences starting 09/2024 until 01/27/2025, 1 completed Testosterone Free [Mass/volume] in Serum or Plasma [facility] Testosterone measurement [facility] Tissue transglutamin ase IgA Ab [Units/volume] in Serum [facility] Total protein measurement [facility] End: 12-30-2024 TRANSCATHETER BIOPSY [facility] Comment on above: One Time for 1 Occurrences starting 12/2024 until 12/30/2024 Transferrin [Mass/vo lume] in Serum or Plasma [facility] Urea nitrogen [Mass/volume] in Serum or Plasma [facility] AV fistula [facility] US Carotid arteries [facility] End: 11-24-2022 US RENAL ARTERY [facility] Vascular Lab Routine Hyperkalemia Primary hypertension 1 Occurrences starting 11/24/2021 until 11/24/2022 [facility] Work Phone: Comment on above: 1 Occurrences starting 11/24/2021 until 11/24/2022 Vitamin B12 measurement [facility] Work Phone: [facility] Immunizations Immunization Date Immunization Notes Care Provider Jennifer alvarado 09-10-2024 Hepatitis B vaccine (recombinant), CpG adjuvanted Dione Love RN [facility] 08-06-2024 Hepatitis B vaccine (recombinant), CpG adjuvanted Dione Love RN [facility] 07-27-2024 pneumococcal conjuga te (PCV20) vaccine, 20 valent (PREVNAR 20) Dione Love RN [facility] 10-06-2022 COVID-19 booster vaccine, age 12+ yr, bivalent (Signature-StellaService) Chriss Cruz MD Work Phone: [facility] 12-02-2021 Lizaid (Moderna) Dr. Chriss Cruz Work Phone: [facility] 07-09-2021 Gutierrez (Moderna) Dr. Chriss Cruz Work Phone: [facility] 07-09-2021 Influenza, injectabl e, Madin Nicky Canine Kidney, preservative free, quadrivalent Chriss Cruz MD Work Phone: [facility] 07-09-2021 influenza virus vacc ine, unspecified formulation Chriss Cruz MD Work Phone: [facility] 12-02-2020 COVID-19 vaccine, fu ll dose (MODERNA) Pr Nurse Work Phone: [facility] 11-04-2020 COVID-19 vaccine, fu ll dose (MODERNA) Pr Nurse Work Phone: [facility] 02-24-2017 tetanus toxoid, redu jacky diphtheria toxoid, and acellular pertussis vaccine, adsorbed Pr Nurse Work Phone: [facility] 05-28-2014 pneumococcal polysaccharide vaccine, 23 valent Pr Nurse Work Phone: [facility] 04-02-2009 pneumococcal polysaccharide vaccine, 23 valent Pr Nurse Work Phone: [facility] 04-02-2009 Pneumococcal Vaccine [facility] Work Phone: 04-02-2009 pneumococcal vaccine , unspecified formulation [facility] 01-18-2007 pneumococcal polysaccharide vaccine, 23 valent Pr Nurse Work Phone: [facility] Work Phone: Payers Date Payer Category Payer Medicaid (Managed Care) [facility] [id number] 2017 Medicaid [employer] [facility] [id number] 2017-Present [phone] [address] [place] [address] Medicaid [id number] 2017 Medicaid [id number] 2017 Unknown [id number] 2016 Self-pay [id number] 2016 Unknown [id number] 1968 Unknown [id number] 2.840.1.504335.3.579.2. 594 1968 Unknown [id number] 2.840.1.333711.3.579.2. 594 1968 Unknown [id number] 2840.1.986937.3.579.2. 594 1968 Unknown [id number] 2.840.1.520179.3.579.2. 594 1968 Unknown [id number] 2.840.1.761680.3.579.2. 594 1968 Unknown [id number] 2.840.1.207370.3.579.2. 594 1968 Unknown [id number] .840.1.113188.3.579.2. 594 1968 Unknown [id number] .840.1.233524.3.579.2. 594 1968 Unknown [id number] 2.840.1.752485.3.579.2. 594 1968 Unknown [id number] 2.840.1.806496.3.579.2. 594 1968 Unknown [id number] 2.840.1.835422.3.579.2. 594 1968 Unknown [id number] 2.16.840.1.170869.3.579.2. 594 1968 Unknown [id number] 2..840.1.804419.3.579.2. 594 1968 Unknown [id number] 2.16.840.1.187016.3.579.2. 594 Unknown [id number] 2.840.1.639895.3.579.2. 462 Unknown [id number] 2.840.1.916039.3.579.2. 462 Unknown [id number] 2.840.1.232987.3.579.2. 462 Unknown [id number] 2.840.1.597629.3.579.2. 462 Unknown [id number] 2.840.1.439199.3.579.2. 462 Unknown [id number] 2.840.1.165458.3.579.2. 462 Unknown [id number] 2.840.1.210067.3.579.2. 462 Unknown [id number] 2.840.1.312733.3.579.2. 462 Unknown [id number] 2.840.1.103922.3.579.2. 462 Unknown [id number] 2.840.1.010350.3.579.2. 462 Unknown [id number] 2.840.1.767713.3.579.2. 462 Unknown [id number] 2.840.1.511379.3.579.2. 462 Unknown [id number] 2.840.1.888366.3.579.2. 462 Unknown [id number] 2.16840.1.948406.3.579.2. 462 Unknown [id number] 2.840.1.753358.3.579.2. 462 Unknown [id number] 2.16.840.1.295746.3.579.2. 462 Unknown [id number] 2.16.840.1.641043.3.579.2. 462 Unknown [id number] 2.16.840.1.250863.3.579.2. 462 Unknown [id number] 2.16.840.1.921624.3.579.2. 462 Unknown [id number] 2.16.840.1.455805.3.579.2. 462 Unknown [id number] 2.16.840.1.504829.3.579.2. 462 Unknown [id number] 2.840.1.790489.3.579.2. 462 Unknown [id number] 2.840.1.362745.3.579.2. 462 Unknown [id number] 2.840.1.640204.3.579.2. 462 Unknown [id number] 2.840.1.362724.3.579.2. 462 Unknown [id number] 2..840.1.498676.3.579.2. 462 Unknown [id number] 2.16.840.1.097824.3.579.2. 462 Unknown [id number] 2.16840.1.265147.3.579.2. 462 Unknown [id number] 2.840.1.117517.3.579.2. 462 Unknown [id number] 2.16.840.1.755397.3.579.2. 462 Unknown [id number] 2.16.840.1.340931.3.579.2. 462 Unknown [id number] 2.16.840.1.649258.3.579.2. 462 Unknown [id number] 2.16.840.1.164058.3.579.2. 462 Unknown [id number] 2.16.840.1.321846.3.579.2. 462 Unknown [id number] 2.16.840.1.494509.3.579.2. 462 Unknown [id number] 2.16840.1.489705.3.579.2. 462 Unknown [id number] 2.16.840.1.362375.3.579.2. 462 Unknown [id number] 2.16840.1.535030.3.579.2. 462 Unknown [id number] 2.16840.1.057930.3.579.2. 462 Unknown [id number] 2.840.1.240065.3.579.2. 462 Unknown [id number] 2.840.1.342729.3.579.2. 462 Unknown [id number] 2.840.1.855696.3.579.2. 462 Unknown [id number] 2.840.1.453241.3.579.2. 462 Unknown [id number] 2.840.1.821420.3.579.2. 462 Unknown [id number] 2.840.1.445604.3.579.2. 462 Unknown [id number] 2.840.1.594215.3.579.2. 462 Unknown [id number] 2.840.1.417309.3.579.2. 462 Unknown [id number] 2.16840.1.970084.3.579.2. 462 Unknown [id number] 2.16840.1.427251.3.579.2. 462 Unknown [id number] 2.16840.1.853541.3.579.2. 462 Unknown [id number] 2.16840.1.755148.3.579.2. 462 Unknown [id number] 2.16840.1.150744.3.579.2. 462 Unknown [id number] 2.16840.1.788298.3.579.2. 462 Social History Date Type Detail Facility Start: 07-16-2014 End: 06-04-2025 Tobacco smoking status NHIS Ex-smoker [facility] Work Phone: Start: 09-10-1986 End: 10-27-2003 History of tobacco use Current smoker [facility] Work Phone: End: 10-27-2003 History of tobacco use Cigar Smoker [facility] Work Phone: Start: 11-19-2021 End: 04-23-2025 Alcohol intake Current non-drinker of alcohol (finding) [facility] Start: 03-01-2012 History SDOH Alcohol Comment recovering alcoholic, quit 2003 [facility] Start: 1970 Sex Assigned At Not on file [facility] Start: 11-06-2021 End: 11-16-2021 Exposure to SARS-CoV-2 (event) Unable to assess [facility] Work Phone: Start: 11-12-2021 End: 06-17-2022 Exposure to SARS-CoV-2 (event) Not sure [facility] Start: 01-26-2022 End: 07-31-2023 Tobacco smoking status MIIS Unknown if ever smoked [facility] Start: 12-21-2020 None [facility] Start: 12-21-2020 Spouse/ Signif icant Other [facility] Start: 12-24-2020 Cigarettes [facility] Start: 1970 Sex Assigned At Male [facility] Start: 09-10-1986 End: 10-27-2003 History of tobacco use Cigarette Smoker [facility] Start: 07-16-2014 End: 04-23-2025 Cigarettes smoked current (pack per day) - Reported 2 [facility] Start: 07-16-2014 End: 09-16-2024 Tobacco use and exposure Smokeless tobacco non-user [facility] Start: 02-01-2023 End: 04-23-2025 Tobacco use panel [facility] National Score (1-10 0), lower number is lower risk 70 [facility] Start: 08-18-2015 Sex Male (finding) [facility] Medical Equipment Procedure Code Equipment Code Equipment Origin al Text Equipment Identifier Dates Insertion, catheter, hemodialysis Double-lumen haemodialysis catheter, implantable [id number] FDA Start: 07-05-2024 EGD, with monitored anesthesia care Oesophageal endoscopic ligator, single-useHaemorrhoi d ligator [id number] FDA Start: 08-02-2023 Creation, AV fistula Ligation cl ip, metallic [id number] FDA Start: 07-23-2024 Creation, AV fistula Ligation cl ip, metallic [id number] FDA Start: 07-23-2024 [id number] Start: 02-07-2017 End: 06-23-2023 Comment on above: TEST four times a da y, IDDM, E11.65 One needle per dose; 4 per day TEST BLOOD SUGARS 4 TIMES DAILY. E10.9. Uses insulin. Use 4 strips per day , IDDM, E11.65 Use 4 pen needles da ana maría Blood Sugar Diagnostic (Freestyle Lite Strips) strip Start: 08-17-2017 End: 04-17-2018 Blood Sugar Diagnostic (Freestyle Lite Strips) strip Start: 04-17-2018 End: 04-17-2018 Blood Sugar Diagnostic (Freestyle Lite Strips) strip Start: 04-17-2018 End: 05-01-2018 Lancets (Freesty le Lancets) 28 gauge misc Start: 08-17-2017 End: 05-01-2018 Pen Needle, Diab etic (Easy Comfort Pen Jericho) 31 gauge x 1/4 needle Start: 08-17-2017 End: 11-13-2017 Pen Needle, Diab etic (Easy Comfort Pen Jericho) 31 gauge x 1/4 needle Start: 11-13-2017 End: 05-01-2018 Syringe With Nee dle (Bd Luer-Jurgen Syringe) 3 mL 25 gauge x 1 syringe Start: 10-04-2018 End: 10-04-2018 Syringe With Nee dle, Safety (Bd Integra Syringe) 3 mL 25 gauge x 1 syringe Start: 09-06-2018 End: 10-04-2018 Blood Sugar Diagnostic (Freestyle Lite Strips) strip Start: 08-17-2017 End: 04-17-2018 Blood Sugar Diagnostic (Freestyle Lite Strips) strip Start: 04-17-2018 End: 04-17-2018 Blood Sugar Diagnostic (Freestyle Lite Strips) strip Start: 04-17-2018 End: 05-01-2018 Lancets (Freesty le Lancets) 28 gauge misc Start: 08-17-2017 End: 05-01-2018 Pen Needle, Diab etic (Easy Comfort Pen Jericho) 31 gauge x 1/4 needle Start: 08-17-2017 End: 11-13-2017 Pen Needle, Diab etic (Easy Comfort Pen Jericho) 31 gauge x 1/4 needle Start: 11-13-2017 End: 05-01-2018 Syringe With Nee dle (Bd Luer-Jurgen Syringe) 3 mL 25 gauge x 1 syringe Start: 10-04-2018 End: 10-04-2018 Syringe With Nee dle, Safety (Bd Integra Syringe) 3 mL 25 gauge x 1 syringe Start: 09-06-2018 End: 10-04-2018 Blood Sugar Diagnostic (Freestyle Lite Strips) strip Start: 08-17-2017 End: 04-17-2018 Blood Sugar Diagnostic (Freestyle Lite Strips) strip Start: 04-17-2018 End: 04-17-2018 Blood Sugar Diagnostic (Freestyle Lite Strips) strip Start: 04-17-2018 End: 05-01-2018 Lancets (Freesty le Lancets) 28 gauge misc Start: 08-17-2017 End: 05-01-2018 Pen Needle, Diab etic (Easy Comfort Pen Jericho) 31 gauge x 1/4 needle Start: 08-17-2017 End: 11-13-2017 Pen Needle, Diab etic (Easy Comfort Pen Jericho) 31 gauge x 1/4 needle Start: 11-13-2017 End: 05-01-2018 Syringe With Nee dle (Bd Luer-Jurgen Syringe) 3 mL 25 gauge x 1 syringe Start: 10-04-2018 End: 10-04-2018 Syringe With Nee dle, Safety (Bd Integra Syringe) 3 mL 25 gauge x 1 syringe Start: 09-06-2018 End: 10-04-2018 Blood Sugar Diagnostic (Freestyle Lite Strips) strip Start: 08-17-2017 End: 04-17-2018 Blood Sugar Diagnostic (Freestyle Lite Strips) strip Start: 04-17-2018 End: 04-17-2018 Blood Sugar Diagnostic (Freestyle Lite Strips) strip Start: 04-17-2018 End: 05-01-2018 Lancets (Freesty le Lancets) 28 gauge misc Start: 08-17-2017 End: 05-01-2018 Pen Needle, Diab etic (Easy Comfort Pen Jericho) 31 gauge x 1/4 needle Start: 08-17-2017 End: 11-13-2017 Pen Needle, Diab etic (Easy Comfort Pen Jericho) 31 gauge x 1/4 needle Start: 11-13-2017 End: 05-01-2018 Syringe With Nee dle (Bd Luer-Jurgen Syringe) 3 mL 25 gauge x 1 syringe Start: 10-04-2018 End: 10-04-2018 Syringe With Nee dle, Safety (Bd Integra Syringe) 3 mL 25 gauge x 1 syringe Start: 09-06-2018 End: 10-04-2018 Blood Sugar Diagnostic (Freestyle Lite Strips) strip Start: 08-17-2017 End: 04-17-2018 Blood Sugar Diagnostic (Freestyle Lite Strips) strip Start: 04-17-2018 End: 04-17-2018 Blood Sugar Diagnostic (Freestyle Lite Strips) strip Start: 04-17-2018 End: 05-01-2018 Lancets (Freesty le Lancets) 28 gauge misc Start: 08-17-2017 End: 05-01-2018 Pen Needle, Diab etic (Easy Comfort Pen Jericho) 31 gauge x 1/4 needle Start: 08-17-2017 End: 11-13-2017 Pen Needle, Diab etic (Easy Comfort Pen Jericho) 31 gauge x 1/4 needle Start: 11-13-2017 End: 05-01-2018 Syringe With Nee dle (Bd Luer-Jurgen Syringe) 3 mL 25 gauge x 1 syringe Start: 10-04-2018 End: 10-04-2018 Syringe With Nee dle, Safety (Bd Integra Syringe) 3 mL 25 gauge x 1 syringe Start: 09-06-2018 End: 10-04-2018 Blood Sugar Diagnostic (Freestyle Lite Strips) strip Start: 08-17-2017 End: 04-17-2018 Blood Sugar Diagnostic (Freestyle Lite Strips) strip Start: 04-17-2018 End: 04-17-2018 Blood Sugar Diagnostic (Freestyle Lite Strips) strip Start: 04-17-2018 End: 05-01-2018 Lancets (Freesty le Lancets) 28 gauge misc Start: 08-17-2017 End: 05-01-2018 Pen Needle, Diab etic (Easy Comfort Pen Jericho) 31 gauge x 1/4 needle Start: 08-17-2017 End: 11-13-2017 Pen Needle, Diab etic (Easy Comfort Pen Jericho) 31 gauge x 1/4 needle Start: 11-13-2017 End: 05-01-2018 Syringe With Nee dle (Bd Luer-Jurgen Syringe) 3 mL 25 gauge x 1 syringe Start: 10-04-2018 End: 10-04-2018 Syringe With Nee dle, Safety (Bd Integra Syringe) 3 mL 25 gauge x 1 syringe Start: 09-06-2018 End: 10-04-2018 Blood Sugar Diagnostic (Freestyle Lite Strips) strip Start: 08-17-2017 End: 04-17-2018 Blood Sugar Diagnostic (Freestyle Lite Strips) strip Start: 04-17-2018 End: 04-17-2018 Blood Sugar Diagnostic (Freestyle Lite Strips) strip Start: 04-17-2018 End: 05-01-2018 Lancets (Freesty le Lancets) 28 gauge misc Start: 08-17-2017 End: 05-01-2018 Pen Needle, Diab etic (Easy Comfort Pen Jericho) 31 gauge x 1/4 needle Start: 08-17-2017 End: 11-13-2017 Pen Needle, Diab etic (Easy Comfort Pen Jericho) 31 gauge x 1/4 needle Start: 11-13-2017 End: 05-01-2018 Syringe With Nee dle (Bd Luer-Jurgen Syringe) 3 mL 25 gauge x 1 syringe Start: 10-04-2018 End: 10-04-2018 Syringe With Nee dle, Safety (Bd Integra Syringe) 3 mL 25 gauge x 1 syringe Start: 09-06-2018 End: 10-04-2018 Blood Sugar Diagnostic (Freestyle Lite Strips) strip Start: 08-17-2017 End: 04-17-2018 Blood Sugar Diagnostic (Freestyle Lite Strips) strip Start: 04-17-2018 End: 04-17-2018 Blood Sugar Diagnostic (Freestyle Lite Strips) strip Start: 04-17-2018 End: 05-01-2018 Lancets (Freesty le Lancets) 28 gauge misc Start: 08-17-2017 End: 05-01-2018 Pen Needle, Diab etic (Easy Comfort Pen Jericho) 31 gauge x 1/4 needle Start: 08-17-2017 End: 11-13-2017 Pen Needle, Diab etic (Easy Comfort Pen Jericho) 31 gauge x 1/4 needle Start: 11-13-2017 End: 05-01-2018 Syringe With Nee dle (Bd Luer-Jurgen Syringe) 3 mL 25 gauge x 1 syringe Start: 10-04-2018 End: 10-04-2018 Syringe With Nee dle, Safety (Bd Integra Syringe) 3 mL 25 gauge x 1 syringe Start: 09-06-2018 End: 10-04-2018 Blood Sugar Diagnostic (Freestyle Lite Strips) strip Start: 08-17-2017 End: 04-17-2018 Blood Sugar Diagnostic (Freestyle Lite Strips) strip Start: 04-17-2018 End: 04-17-2018 Blood Sugar Diagnostic (Freestyle Lite Strips) strip Start: 04-17-2018 End: 05-01-2018 Lancets (Freesty le Lancets) 28 gauge misc Start: 08-17-2017 End: 05-01-2018 Pen Needle, Diab etic (Easy Comfort Pen Jericho) 31 gauge x 1/4 needle Start: 08-17-2017 End: 11-13-2017 Pen Needle, Diab etic (Easy Comfort Pen Jericho) 31 gauge x 1/4 needle Start: 11-13-2017 End: 05-01-2018 Syringe With Nee dle (Bd Luer-Jurgen Syringe) 3 mL 25 gauge x 1 syringe Start: 10-04-2018 End: 10-04-2018 Syringe With Nee dle, Safety (Bd Integra Syringe) 3 mL 25 gauge x 1 syringe Start: 09-06-2018 End: 10-04-2018 Blood Sugar Diagnostic (Freestyle Lite Strips) strip Start: 08-17-2017 End: 04-17-2018 Blood Sugar Diagnostic (Freestyle Lite Strips) strip Start: 04-17-2018 End: 04-17-2018 Blood Sugar Diagnostic (Freestyle Lite Strips) strip Start: 04-17-2018 End: 05-01-2018 Lancets (Freesty le Lancets) 28 gauge misc Start: 08-17-2017 End: 05-01-2018 Pen Needle, Diab etic (Easy Comfort Pen Jericho) 31 gauge x 1/4 needle Start: 08-17-2017 End: 11-13-2017 Pen Needle, Diab etic (Easy Comfort Pen Jericho) 31 gauge x 1/4 needle Start: 11-13-2017 End: 05-01-2018 Syringe With Nee dle (Bd Luer-Jurgen Syringe) 3 mL 25 gauge x 1 syringe Start: 10-04-2018 End: 10-04-2018 Syringe With Nee dle, Safety (Bd Integra Syringe) 3 mL 25 gauge x 1 syringe Start: 09-06-2018 End: 10-04-2018 Blood Sugar Diagnostic (Freestyle Lite Strips) strip Start: 08-17-2017 End: 04-17-2018 Blood Sugar Diagnostic (Freestyle Lite Strips) strip Start: 04-17-2018 End: 04-17-2018 Blood Sugar Diagnostic (Freestyle Lite Strips) strip Start: 04-17-2018 End: 05-01-2018 Lancets (Freesty le Lancets) 28 gauge misc Start: 08-17-2017 End: 05-01-2018 Pen Needle, Diab etic (Easy Comfort Pen Jericho) 31 gauge x 1/4 needle Start: 08-17-2017 End: 11-13-2017 Pen Needle, Diab etic (Easy Comfort Pen Jericho) 31 gauge x 1/4 needle Start: 11-13-2017 End: 05-01-2018 Syringe With Nee dle (Bd Luer-Jurgen Syringe) 3 mL 25 gauge x 1 syringe Start: 10-04-2018 End: 10-04-2018 Syringe With Nee dle, Safety (Bd Integra Syringe) 3 mL 25 gauge x 1 syringe Start: 09-06-2018 End: 10-04-2018 Blood Sugar Diagnostic (Freestyle Lite Strips) strip Start: 08-17-2017 End: 04-17-2018 Blood Sugar Diagnostic (Freestyle Lite Strips) strip Start: 04-17-2018 End: 04-17-2018 Blood Sugar Diagnostic (Freestyle Lite Strips) strip Start: 04-17-2018 End: 05-01-2018 Lancets (Freesty le Lancets) 28 gauge misc Start: 08-17-2017 End: 05-01-2018 Pen Needle, Diab etic (Easy Comfort Pen Jericho) 31 gauge x 1/4 needle Start: 08-17-2017 End: 11-13-2017 Pen Needle, Diab etic (Easy Comfort Pen Jericho) 31 gauge x 1/4 needle Start: 11-13-2017 End: 05-01-2018 Syringe With Nee dle (Bd Luer-Jurgen Syringe) 3 mL 25 gauge x 1 syringe Start: 10-04-2018 End: 10-04-2018 Syringe With Nee dle, Safety (Bd Integra Syringe) 3 mL 25 gauge x 1 syringe Start: 09-06-2018 End: 10-04-2018 Blood Sugar Diagnostic (Freestyle Lite Strips) strip Start: 08-17-2017 End: 04-17-2018 Blood Sugar Diagnostic (Freestyle Lite Strips) strip Start: 04-17-2018 End: 04-17-2018 Blood Sugar Diagnostic (Freestyle Lite Strips) strip Start: 04-17-2018 End: 05-01-2018 Lancets (Freesty le Lancets) 28 gauge misc Start: 08-17-2017 End: 05-01-2018 Pen Needle, Diab etic (Easy Comfort Pen Jericho) 31 gauge x 1/4 needle Start: 08-17-2017 End: 11-13-2017 Pen Needle, Diab etic (Easy Comfort Pen Jericho) 31 gauge x 1/4 needle Start: 11-13-2017 End: 05-01-2018 Syringe With Nee dle (Bd Luer-Jurgen Syringe) 3 mL 25 gauge x 1 syringe Start: 10-04-2018 End: 10-04-2018 Syringe With Nee dle, Safety (Bd Integra Syringe) 3 mL 25 gauge x 1 syringe Start: 09-06-2018 End: 10-04-2018 Blood Sugar Diagnostic (Freestyle Lite Strips) strip Start: 08-17-2017 End: 04-17-2018 Blood Sugar Diagnostic (Freestyle Lite Strips) strip Start: 04-17-2018 End: 04-17-2018 Blood Sugar Diagnostic (Freestyle Lite Strips) strip Start: 04-17-2018 End: 05-01-2018 Lancets (Freesty le Lancets) 28 gauge misc Start: 08-17-2017 End: 05-01-2018 Pen Needle, Diab etic (Easy Comfort Pen Jericho) 31 gauge x 1/4 needle Start: 08-17-2017 End: 11-13-2017 Pen Needle, Diab etic (Easy Comfort Pen Jericho) 31 gauge x 1/4 needle Start: 11-13-2017 End: 05-01-2018 Syringe With Nee dle (Bd Luer-Jurgen Syringe) 3 mL 25 gauge x 1 syringe Start: 10-04-2018 End: 10-04-2018 Syringe With Nee dle, Safety (Bd Integra Syringe) 3 mL 25 gauge x 1 syringe Start: 09-06-2018 End: 10-04-2018 Blood Sugar Diagnostic (Freestyle Lite Strips) strip Start: 08-17-2017 End: 04-17-2018 Blood Sugar Diagnostic (Freestyle Lite Strips) strip Start: 04-17-2018 End: 04-17-2018 Blood Sugar Diagnostic (Freestyle Lite Strips) strip Start: 04-17-2018 End: 05-01-2018 Lancets (Freesty le Lancets) 28 gauge misc Start: 08-17-2017 End: 05-01-2018 Pen Needle, Diab etic (Easy Comfort Pen Jericho) 31 gauge x 1/4 needle Start: 08-17-2017 End: 11-13-2017 Pen Needle, Diab etic (Easy Comfort Pen Jericho) 31 gauge x 1/4 needle Start: 11-13-2017 End: 05-01-2018 Syringe With Nee dle (Bd Luer-Jurgen Syringe) 3 mL 25 gauge x 1 syringe Start: 10-04-2018 End: 10-04-2018 Syringe With Nee dle, Safety (Bd Integra Syringe) 3 mL 25 gauge x 1 syringe Start: 09-06-2018 End: 10-04-2018 Blood Sugar Diagnostic (Freestyle Lite Strips) strip Start: 08-17-2017 End: 04-17-2018 Blood Sugar Diagnostic (Freestyle Lite Strips) strip Start: 04-17-2018 End: 04-17-2018 Blood Sugar Diagnostic (Freestyle Lite Strips) strip Start: 04-17-2018 End: 05-01-2018 Lancets (Freesty le Lancets) 28 gauge misc Start: 08-17-2017 End: 05-01-2018 Pen Needle, Diab etic (Easy Comfort Pen [place]) 31 gauge x 1/4 needle Start: 08-17-2017 End: 11-13-2017 Pen Needle, Diab etic (Easy Comfort Pen [place]) 31 gauge x 1/4 needle Start: 11-13-2017 End: 05-01-2018 Syringe With Nee dle (Bd Luer-Jurgen Syringe) 3 mL 25 gauge x 1 syringe Start: 10-04-2018 End: 10-04-2018 Syringe With Nee dle, Safety (Bd Integra Syringe) 3 mL 25 gauge x 1 syringe Start: 09-06-2018 End: 10-04-2018 Blood Sugar Diagnostic (Freestyle Lite Strips) strip Start: 08-17-2017 End: 04-17-2018 Blood Sugar Diagnostic (Freestyle Lite Strips) strip Start: 04-17-2018 End: 04-17-2018 Blood Sugar Diagnostic (Freestyle Lite Strips) strip Start: 04-17-2018 End: 05-01-2018 Lancets (Freesty le Lancets) 28 gauge misc Start: 08-17-2017 End: 05-01-2018 Pen Needle, Diab etic (Easy Comfort Pen [place]) 31 gauge x 1/4 needle Start: 08-17-2017 End: 11-13-2017 Pen Needle, Diab etic (Easy Comfort Pen [place]) 31 gauge x 1/4 needle Start: 11-13-2017 End: 05-01-2018 Syringe With Nee dle (Bd Luer-Jurgen Syringe) 3 mL 25 gauge x 1 syringe Start: 10-04-2018 End: 10-04-2018 Syringe With Nee dle, Safety (Bd Integra Syringe) 3 mL 25 gauge x 1 syringe Start: 09-06-2018 End: 10-04-2018 Blood Sugar Diagnostic (Freestyle Lite Strips) strip Start: 08-17-2017 End: 04-17-2018 Blood Sugar Diagnostic (Freestyle Lite Strips) strip Start: 04-17-2018 End: 04-17-2018 Blood Sugar Diagnostic (Freestyle Lite Strips) strip Start: 04-17-2018 End: 05-01-2018 Lancets (Freesty le Lancets) 28 gauge misc Start: 08-17-2017 End: 05-01-2018 Pen Needle, Diab etic (Easy Comfort Pen [place]) 31 gauge x 1/4 needle Start: 08-17-2017 End: 11-13-2017 Pen Needle, Diab etic (Easy Comfort Pen [place]) 31 gauge x 1/4 needle Start: 11-13-2017 End: 05-01-2018 Syringe With Nee dle (Bd Luer-Jurgen Syringe) 3 mL 25 gauge x 1 syringe Start: 10-04-2018 End: 10-04-2018 Syringe With Nee dle, Safety (Bd Integra Syringe) 3 mL 25 gauge x 1 syringe Start: 09-06-2018 End: 10-04-2018 Blood Sugar Diagnostic (Freestyle Lite Strips) strip Start: 08-17-2017 End: 04-17-2018 Blood Sugar Diagnostic (Freestyle Lite Strips) strip Start: 04-17-2018 End: 04-17-2018 Blood Sugar Diagnostic (Freestyle Lite Strips) strip Start: 04-17-2018 End: 05-01-2018 Lancets (Freesty le Lancets) 28 gauge misc Start: 08-17-2017 End: 05-01-2018 Pen Needle, Diab etic (Easy Comfort Pen [place]) 31 gauge x 1/4 needle Start: 08-17-2017 End: 11-13-2017 Pen Needle, Diab etic (Easy Comfort Pen [place]) 31 gauge x 1/4 needle Start: 11-13-2017 End: 05-01-2018 Syringe With Nee dle (Bd Luer-Jurgen Syringe) 3 mL 25 gauge x 1 syringe Start: 10-04-2018 End: 10-04-2018 Syringe With Nee dle, Safety (Bd Integra Syringe) 3 mL 25 gauge x 1 syringe Start: 09-06-2018 End: 10-04-2018 Blood Sugar Diagnostic (Freestyle Lite Strips) strip Start: 09-30-2024 Blood Sugar Diagnostic (Onetouch Verio Test Strips) strip Start: 10-31-2024 Blood Sugar Diagnostic (True Metrix Glucose Test Strip) strip Start: 12-30-2024 Pen Needle, Diab etic (Comfort Ez Pen [place]) 31 gauge x 5/16 needle Start: 12-18-2024 Blood Sugar Diagnostic (Freestyle Lite Strips) strip Start: 08-17-2017 End: 04-17-2018 Blood Sugar Diagnostic (Freestyle Lite Strips) strip Start: 04-17-2018 End: 04-17-2018 Blood Sugar Diagnostic (Freestyle Lite Strips) strip Start: 04-17-2018 End: 05-01-2018 Blood Sugar Diagnostic (Freestyle Lite Strips) strip Start: 09-30-2024 End: 09-30-2024 Lancets (Freesty le Lancets) 28 gauge misc Start: 08-17-2017 End: 05-01-2018 Pen Needle, Diab etic (Easy Comfort Pen [place]) 31 gauge x 1/4 needle Start: 08-17-2017 End: 11-13-2017 Pen Needle, Diab etic (Easy Comfort Pen [place]) 31 gauge x 1/4 needle Start: 11-13-2017 End: 05-01-2018 Syringe With Nee dle (Bd Luer-Jurgen Syringe) 3 mL 25 gauge x 1 syringe Start: 10-04-2018 End: 10-04-2018 Syringe With Nee dle, Safety (Bd Integra Syringe) 3 mL 25 gauge x 1 syringe Start: 09-06-2018 End: 10-04-2018 Blood Sugar Diagnostic (Freestyle Lite Strips) strip Start: 09-30-2024 Blood Sugar Diagnostic (Onetouch Verio Test Strips) strip Start: 10-31-2024 Blood Sugar Diagnostic (True Metrix Glucose Test Strip) strip Start: 12-30-2024 Pen Needle, Diab etic (Comfort Ez Pen [place]) 31 gauge x 5/16 needle Start: 12-18-2024 Blood Sugar Diagnostic (Freestyle Lite Strips) strip Start: 08-17-2017 End: 04-17-2018 Blood Sugar Diagnostic (Freestyle Lite Strips) strip Start: 04-17-2018 End: 04-17-2018 Blood Sugar Diagnostic (Freestyle Lite Strips) strip Start: 04-17-2018 End: 05-01-2018 Blood Sugar Diagnostic (Freestyle Lite Strips) strip Start: 09-30-2024 End: 09-30-2024 Lancets (Freesty le Lancets) 28 gauge misc Start: 08-17-2017 End: 05-01-2018 Pen Needle, Diab etic (Easy Comfort Pen [place]) 31 gauge x 1/4 needle Start: 08-17-2017 End: 11-13-2017 Pen Needle, Diab etic (Easy Comfort Pen [place]) 31 gauge x 1/4 needle Start: 11-13-2017 End: 05-01-2018 Syringe With Nee dle (Bd Luer-Jurgen Syringe) 3 mL 25 gauge x 1 syringe Start: 10-04-2018 End: 10-04-2018 Syringe With Nee dle, Safety (Bd Integra Syringe) 3 mL 25 gauge x 1 syringe Start: 09-06-2018 End: 10-04-2018 Blood Sugar Diagnostic (Freestyle Lite Strips) strip Start: 09-30-2024 Blood Sugar Diagnostic (Onetouch Verio Test Strips) strip Start: 10-31-2024 Blood Sugar Diagnostic (True Metrix Glucose Test Strip) strip Start: 12-30-2024 Pen Needle, Diab etic (Comfort Ez Pen [place]) 31 gauge x 5/16 needle Start: 12-18-2024 Blood Sugar Diagnostic (Freestyle Lite Strips) strip Start: 08-17-2017 End: 04-17-2018 Blood Sugar Diagnostic (Freestyle Lite Strips) strip Start: 04-17-2018 End: 04-17-2018 Blood Sugar Diagnostic (Freestyle Lite Strips) strip Start: 04-17-2018 End: 05-01-2018 Blood Sugar Diagnostic (Freestyle Lite Strips) strip Start: 09-30-2024 End: 09-30-2024 Lancets (Freesty le Lancets) 28 gauge misc Start: 08-17-2017 End: 05-01-2018 Pen Needle, Diab etic (Easy Comfort Pen [place]) 31 gauge x 1/4 needle Start: 08-17-2017 End: 11-13-2017 Pen Needle, Diab etic (Easy Comfort Pen [place]) 31 gauge x 1/4 needle Start: 11-13-2017 End: 05-01-2018 Syringe With Nee dle (Bd Luer-Jurgen Syringe) 3 mL 25 gauge x 1 syringe Start: 10-04-2018 End: 10-04-2018 Syringe With Nee dle, Safety (Bd Integra Syringe) 3 mL 25 gauge x 1 syringe Start: 09-06-2018 End: 10-04-2018 Blood Sugar Diagnostic (Freestyle Lite Strips) strip Start: 09-30-2024 Blood Sugar Diagnostic (Onetouch Verio Test Strips) strip Start: 10-31-2024 Blood Sugar Diagnostic (True Metrix Glucose Test Strip) strip Start: 12-30-2024 Pen Needle, Diab etic (Comfort Ez Pen [place]) 31 gauge x 5/16 needle Start: 12-18-2024 Blood Sugar Diagnostic (Freestyle Lite Strips) strip Start: 08-17-2017 End: 04-17-2018 Blood Sugar Diagnostic (Freestyle Lite Strips) strip Start: 04-17-2018 End: 04-17-2018 Blood Sugar Diagnostic (Freestyle Lite Strips) strip Start: 04-17-2018 End: 05-01-2018 Blood Sugar Diagnostic (Freestyle Lite Strips) strip Start: 09-30-2024 End: 09-30-2024 Lancets (Freesty le Lancets) 28 gauge misc Start: 08-17-2017 End: 05-01-2018 Pen Needle, Diab etic (Easy Comfort Pen [place]) 31 gauge x 1/4 needle Start: 08-17-2017 End: 11-13-2017 Pen Needle, Diab etic (Easy Comfort Pen [place]) 31 gauge x 1/4 needle Start: 11-13-2017 End: 05-01-2018 Syringe With Nee dle (Bd Luer-Jurgen Syringe) 3 mL 25 gauge x 1 syringe Start: 10-04-2018 End: 10-04-2018 Syringe With Nee dle, Safety (Bd Integra Syringe) 3 mL 25 gauge x 1 syringe Start: 09-06-2018 End: 10-04-2018 Blood Sugar Diagnostic (Freestyle Lite Strips) strip Start: 09-30-2024 Blood Sugar Diagnostic (Onetouch Verio Test Strips) strip Start: 10-31-2024 Blood Sugar Diagnostic (True Metrix Glucose Test Strip) strip Start: 12-30-2024 Pen Needle, Diab etic (Comfort Ez Pen [place]) 31 gauge x 5/16 needle Start: 12-18-2024 Blood Sugar Diagnostic (Freestyle Lite Strips) strip Start: 08-17-2017 End: 04-17-2018 Blood Sugar Diagnostic (Freestyle Lite Strips) strip Start: 04-17-2018 End: 04-17-2018 Blood Sugar Diagnostic (Freestyle Lite Strips) strip Start: 04-17-2018 End: 05-01-2018 Blood Sugar Diagnostic (Freestyle Lite Strips) strip Start: 09-30-2024 End: 09-30-2024 Lancets (Freesty le Lancets) 28 gauge misc Start: 08-17-2017 End: 05-01-2018 Pen Needle, Diab etic (Easy Comfort Pen [place]) 31 gauge x 1/4 needle Start: 08-17-2017 End: 11-13-2017 Pen Needle, Diab etic (Easy Comfort Pen [place]) 31 gauge x 1/4 needle Start: 11-13-2017 End: 05-01-2018 Syringe With Nee dle (Bd Luer-Jurgen Syringe) 3 mL 25 gauge x 1 syringe Start: 10-04-2018 End: 10-04-2018 Syringe With Nee dle, Safety (Bd Integra Syringe) 3 mL 25 gauge x 1 syringe Start: 09-06-2018 End: 10-04-2018 Blood Sugar Diagnostic (Freestyle Lite Strips) strip Start: 09-30-2024 Blood Sugar Diagnostic (Onetouch Verio Test Strips) strip Start: 10-31-2024 Blood Sugar Diagnostic (True Metrix Glucose Test Strip) strip Start: 12-30-2024 Pen Needle, Diab etic (Comfort Ez Pen [place]) 31 gauge x 5/16 needle Start: 12-18-2024 Blood Sugar Diagnostic (Freestyle Lite Strips) strip Start: 08-17-2017 End: 04-17-2018 Blood Sugar Diagnostic (Freestyle Lite Strips) strip Start: 04-17-2018 End: 04-17-2018 Blood Sugar Diagnostic (Freestyle Lite Strips) strip Start: 04-17-2018 End: 05-01-2018 Blood Sugar Diagnostic (Freestyle Lite Strips) strip Start: 09-30-2024 End: 09-30-2024 Lancets (Freesty le Lancets) 28 gauge misc Start: 08-17-2017 End: 05-01-2018 Pen Needle, Diab etic (Easy Comfort Pen [place]) 31 gauge x 1/4 needle Start: 08-17-2017 End: 11-13-2017 Pen Needle, Diab etic (Easy Comfort Pen [place]) 31 gauge x 1/4 needle Start: 11-13-2017 End: 05-01-2018 Syringe With Nee dle (Bd Luer-Jurgen Syringe) 3 mL 25 gauge x 1 syringe Start: 10-04-2018 End: 10-04-2018 Syringe With Nee dle, Safety (Bd Integra Syringe) 3 mL 25 gauge x 1 syringe Start: 09-06-2018 End: 10-04-2018 Blood Sugar Diagnostic (Onetouch Verio Test Strips) strip Start: 10-31-2024 Pen Needle, Diab etic (Comfort Ez Pen [place]) 31 gauge x 5/16 needle Start: 12-18-2024 Blood Sugar Diagnostic (Freestyle Lite Strips) strip Start: 08-17-2017 End: 04-17-2018 Blood Sugar Diagnostic (Freestyle Lite Strips) strip Start: 04-17-2018 End: 04-17-2018 Blood Sugar Diagnostic (Freestyle Lite Strips) strip Start: 04-17-2018 End: 05-01-2018 Blood Sugar Diagnostic (Freestyle Lite Strips) strip Start: 09-30-2024 End: 09-30-2024 Blood Sugar Diagnostic (Freestyle Lite Strips) strip Start: 09-30-2024 End: 06-18-2025 Blood Sugar Diagnostic (True Metrix Glucose Test Strip) strip Start: 12-30-2024 End: 06-18-2025 Lancets (Freesty le Lancets) 28 gauge misc Start: 08-17-2017 End: 05-01-2018 Pen Needle, Diab etic (Easy Comfort Pen [place]) 31 gauge x 1/4 needle Start: 08-17-2017 End: 11-13-2017 Pen Needle, Diab etic (Easy Comfort Pen [place]) 31 gauge x 1/4 needle Start: 11-13-2017 End: 05-01-2018 Syringe With Nee dle (Bd Luer-Jurgen Syringe) 3 mL 25 gauge x 1 syringe Start: 10-04-2018 End: 10-04-2018 Syringe With Nee dle, Safety (Bd Integra Syringe) 3 mL 25 gauge x 1 syringe Start: 09-06-2018 End: 10-04-2018 Goals Date Patient Goal Desired Activity /State Functional Status Date Assessment Result Facility 12-09-2023 Functional status Up ad jessica [facility] Work Phone: 11-26-2022 Functional status Chair [facility] Work Phone: 03-18-2015 Are you deaf, or do you have serious difficulty hearing No 03/18/2015 1:06 PM Sarah Baum LPN No [facility] 03-18-2015 Are you blind, or do you have serious difficulty seeing, even when wearing glasses No 03/18/2015 1:06 PM Sarah Baum LPN No [facility] 03-18-2015 Do you have serious difficulty walking or climbing stairs No 03/18/2015 1:06 PM Sarah Baum LPN No [facility] 03-18-2015 Do you have difficul ty dressing or bathing No 03/18/2015 1:06 PM Sarah Baum LPN No [facility] 03-18-2015 Because of a physica l, mental, or emotional condition, do you have difficulty doing errands alone such as visiting a physician's office or shopping No 03/18/2015 1:06 PM Sarah Baum LPN No [facility] Mental Status Date Assessment Result Facility 07-02-2024 Cognitive function Voice/Name [facility] Work Phone: 12-18-2023 Cognitive function Level Of Cons ciousness Awake;Alert;Appropriate;Fo davidws Commands [facility] Work Phone: 12-09-2023 Cognitive function Voice/Name [facility] Work Phone: 12-07-2023 Cognitive function Level Of Cons ciousness Awake;Alert;Appropriate;Fo llows Commands [facility] Work Phone: 10-16-2023 Cognitive function Level Of Cons ciousness Awake;Alert;Appropriate;Fo llows Commands [facility] Work Phone: 08-09-2023 Cognitive function Voice/Name [facility] Work Phone: 08-02-2023 Cognitive function Voice/Name [facility] Work Phone: 05-25-2023 Cognitive function Level Of Cons ciousness Awake;Alert;Appropriate [facility] Work Phone: 05-22-2023 Cognitive function Awake;Alert;A ppropriate;Megan [facility] Work Phone: 04-13-2023 Cognitive function Arousable To Voice/Nam e [facility] Work Phone: 02-14-2023 Cognitive function Voice/Name [facility] Work Phone: 11-26-2022 Cognitive function Voice/Name [facility] Work Phone: 11-23-2022 Cognitive function Level Of Cons ciousness Awake;Alert;Appropriate;Dr howard [facility] Work Phone: 11-15-2022 Cognitive function Voice/Name [facility] Work Phone: 02-13-2022 Cognitive function Level Of Cons ciousness Awake [facility] Work Phone: 01-26-2022 Cognitive function Level Of Cons ciousness Awake;Alert;Appropriate;Megan [facility] Work Phone: 11-21-2021 Cognitive function Level Of Cons ciousness Awake;Alert;Appropriate;[facility] Work Phone: 03-18-2015 Because of a physica l, mental, or emotional condition, do you have serious difficulty concentrating, remembering, or making decisions No 03/18/2015 1:06 PM Sarah Baum LPN No [facility] Clinical Notes 06-03-2014 to 06-18-2025 Note Date & Type Note Facility 06-18-2025 Progress note [facility] 06-04-2025 History and physi carl note Note Date/Time June 04, 2025 12:08pm [facility] Medical Records Department [address] [place] [address] History & Physical Exam 06/04/25 1206 MR#: [id number] Acct: [id number] Name: REGINALDO HUFFMAN Rep #:[id number] : 1970 54 From: Kirk Fernandez MD PCP: Dr. Kimberlyn East MD Status:REG SD C Location: [facility] HPI - General HPI Narrative REGINALDO HUFFMAN, is a 54 M who presents with prolonged bleeding from fistula. [facility] Medical History Vascular dialysis catheter in place History of hemodialysis History of renal dialysis Hemodialysis patient Anemia due to chronic blood loss Positive fecal occult blood test Cancer Insulin dependent diabetes mellitus History of renal disease Low iron Easy bruising Wears glasses Arthritis Fatty liver Restless legs Former smoker Leg cramps History of edema History of stress test History of echocardiogram Syncope Hx of vertigo Therapeutic drug monitoring History of colon cancer Trigeminal nerve disorder portacath placement GERD (gastroesophageal reflux disease) High cholesterol Hepatitis C Depressive disorder Obesity Seizure disorder Asthma History of alcohol abuse Pancreatitis Sezary disease Home Medications ?Medication ?Instructions ?Recorded ?Last Taken ?Type cholecalciferol (vitamin D3) 25 1,000 unit PO TUTHSA s upplement 10/10/13 11/13/15 History mcg (1,000 unit) capsule sertraline 100 mg tablet 100 mg PO QHS depression 06/04/25 History multivitamin with folic acid 400 1 tab PO DAILY supple ment 10/21/14 11/13/15 History mcg tablet rosuvastatin 40 mg tablet 40 mg PO QHS cholesterol 07/23/24 01:00 History fish oil-dha-epa 1,200 mg-144 1 each PO DAILY suppleme nt 11/14/20 Unknown History mg-216 mg capsule albuterol sulfate 90 mcg/actuation 1 - 2 puff inhalati on Q4H PRN PRN 10/16/23 Unknown Rx aerosol inhaler (Ventolin HFA) Wheezing #1 inh gemfibrozil 600 mg tablet 600 mg PO BID pancreatitis 0 12/08/23 12/07/23 10:00 History prevention nadolol 40 mg tablet 40 mg PO BID heart 12/18/23 06/04/25 History calcitriol 0.5 mcg capsule 0.5 mcg PO DAILY bone healt h 05/30/24 Unknown History clonidine HCl 0.1 mg tablet 0.1 mg PO TID hypertension 06/12/24 07/23/24 History ergocalciferol (vitamin D2) 1,250 1,250 mcg PO MOWEFR VITAMIN 07/03/24 Unknown History mcg (50,000 unit) capsule aripiprazole 2 mg tablet 2 mg PO QHS mental health Unknown History losartan 50 mg tablet 50 mg PO DAILY 30 days #30 t abs 07/10/24 07/23/24 01:00 Rx blood sugar diagnostic (FreeStyle #100 ea 09/30/24 Unk nown Rx Lite Strips) blood sugar diagnostic (OneTouch #100 ea 10/31/24 Unkn own Rx Verio test strips) blood-glucose meter (OneTouch #1 ea 10/31/24 Unknown R x Verio Reflect kit) pantoprazole 20 mg tablet,delayed 40 mg (2 x 20 mg) PO DAILY reflux 11/19/24 Unknown Rx release #90 TABLETS insulin lispro 100 unit/mL 18 unit (0.18 mL) subcut TI D #60 mL 12/11/24 Unknown Rx subcutaneous pen (Admelog SoloStar U-100 Insulin lispro) insulin glargine 100 unit/mL (3 25 unit (0.25 mL) subc ut ONCE 12/18/24 Unknown Rx mL) subcutaneous pen (Lantus diabetes #22.5 mL Solostar U-100 Insulin) pen needle, diabetic 31 gauge x #100 ea 12/18/24 Unkno wn Rx 01/10 (Comfort EZ Pen Jer[place]o) blood sugar diagnostic (True #100 ea 12/30/24 Unknown Rx Metrix Glucose Test Strip) blood-glucose meter (True Metrix #1 ea 12/30/24 Unknow n Rx Air Glucose Meter kit) carbamazepine 200 mg tablet 600 mg (3 x 200 mg) PO BID 04/21/25 Unknown Rx seizures #540 tabs gabapentin 300 mg capsule 300 mg PO BID #60 caps 04/21 Unknown Rx trazodone 50 mg tablet 50 mg PO QHS PRN insomnia #3 0 tabs 04/21/25 Unknown Rx cholestyramine 4 gram oral powder 4 g PO HS #239.4 gra ms 05/07/25 Unknown Rx (Cholestyramine Light) sucroferric oxyhydroxide 500 mg 500 mg PO QAC 05/07/25 Unknown History chewable tablet (Velphoro) hydralazine 50 mg tablet 50 mg PO TID 06/04/25 History Allergy/AdvReac Type Severity Reaction Status Date / Time doxazosin (From Cami) Allergy Severe Bleeding Verified 04/21/25 07:53 erythromycin base Allergy Severe Hives Verified 04/21/25 07:53 loratadine (From Claritin) Allergy Severe Rash Verified 04/21/25 07:53 amlodipine AdvReac nausea/diar Verified 04/21/25 07:53 darryl/dizzin ess Family History Grandmother Cervical cancer Diabetes Hypertension Trigeminal neuralgia Mother Uterine cancer Arthritis Diabetes Hypertension Grandfather Heart disease Arthritis Diabetes Hypertension Unknown Diabetes Arthritis Father Arthritis Diabetes Hypertension Sister Diabetes Hypertension Uncle CVA (cerebral vascular accident) Aunt Cerebral aneurysm Surgical History Hx of esophagogastroduodenoscopy Hx of appendectomy H/O left hemicolectomy Social History Smoking Status: Former smoker Tobacco: How many years used: 20 how long ago did patient quit smoking: quit 2003 second hand exposure: No alcohol intake: former details: quit 2003 substance use type: former substance user Date of last use: Used Marijuana since he was a teenager ROS Constitutional Constitutional: Denies chills, fever(s), frequent falls, lethargy or weakness Eyes Eyes: Denies blind spots, change in vision or loss of vision ENT HEENT: Denies bleeding gums, hoarseness or sore throat Cardiovascular Cardiovascular: Denies abdominal pain, bluish discoloration of hand/feet, chest pain with activity, claudication, cold extremities, cyanosis, dyspnea on exertion, erythema on extremities, irregular heart rhythm, leg edema, leg ulcers, numbness in extremities or weakness in extremities Respiratory/Chest Respiratory/Chest: Denies cough, excessive phlegm production, shortness of breath at rest, shortness of breath with exertion or wheezing Gastrointestinal Gastrointestinal: Denies anorexia, change in stool character, constipation, diarrhea, melena or rectal bleeding Genitourinary Genitourinary: Denies dysuria or hematuria Musculoskeletal Musculoskeletal: Denies abnormal gait Integumentary Integumentary: Reports other Details: ; Denies erythema, non-healing lesions or wounds Neurologic Neurologic: Denies abnormal speech, focal weakness, headache(s), loss of vision,numbness, paresthesias or sensory deficit Hematologic/Lymphatic Hematologic/Lymphatic: Denies easy bleeding, easy bruising or lymphadenopathy Vital Signs Vital Signs Vital Signs: Weight Weight: 199 lb Body Mass Index (BMI) 30.2 Physical Exam Const alert, oriented x3, no apparent distress and healthy appearing General Appearance: cooperative; Negative for combative or lethargic Orientation / Consciousness: awake Exam Limitations: no limitations HEENT Head and Scalp: normocephalic and atraumatic Eyes EOMs intact bilaterally General Eye: normal appearance of both eyes Neck full ROM, no lymphadenopathy, thyroid normal and No no carotid bruits General: trachea midline; Negative for lymphadenopathy or tenderness Thyroid: thyroid normal Lymph Lymphatic: Negative for no lymphadenopathy noted Resp normal respiratory effort and no use of accessory muscles Effort and Inspection: Negative for labored, stridor or audible wheezes Cardio regular rate and regular rhythm Cardio Narrative: fistula pulsatile Peripheral Pulses: brachial pulses present Back/Spine Cervical Spine: cervical ROM normal Extremity full ROM, normal capillary refill and no clubbing, cyanosis or edema Skin no rashes or lesions noted and no wounds Neuro oriented x3, CN's II-XII intact bilaterally, no focal motor deficits and no sensory deficits noted Psych thought process normal, cooperative, affect normal, speech normal and activity/motor behavior normal Assessment & Plan Assessment/Plan (1) Arteriovenous fistula stenosis: QUALIFIERS: Encounter type: initial encounter Qualified Code(s): T82.858A - Stenosis of other vascular prosthetic devices, implants and grafts, initial encounter PLAN: -fistulagram 06/04/25 1208 <Electronically signed by Kirk Fernandez MD> Cosigner Signature (if applicable): CC: Dr. Kimberlyn East MD; Dr. Kirk Fernandez MD~ Signed [facility] Work Phone: [phone]) 210-823410-08-2025 History and physical note [facility] Medical Records Department [address] [place] [address] History & Physical Exam 06/04/25 1206 MR#: [id number] Acct: [id number] Name: REGINALDO HUFFMAN Rep #:[id number] : 1970 54 From: Kirk Fernandez MD PCP: Dr. Kimberlyn East MD Status:REG SD C Location: [facility] HPI - General HPI Narrative REGINALDO HUFFMAN, is a 54 M who presents with prolonged bleeding from fistula. [facility] Medical History Vascular dialysis catheter in place History of hemodialysis History of renal dialysis Hemodialysis patient Anemia due to chronic blood loss Positive fecal occult blood test Cancer Insulin dependent diabetes mellitus History of renal disease Low iron Easy bruising Wears glasses Arthritis Fatty liver Restless legs Former smoker Leg cramps History of edema History of stress test History of echocardiogram Syncope Hx of vertigo Therapeutic drug monitoring History of colon cancer Trigeminal nerve disorder portacath placement GERD (gastroesophageal reflux disease) High cholesterol Hepatitis C Depressive disorder Obesity Seizure disorder Asthma History of alcohol abuse Pancreatitis Sezary disease Home Medications ?Medication ?Instructions ?Recorded ?Last Taken ?Type cholecalciferol (vitamin D3) 25 1,000 unit PO TUTHSA s upplement 10/10/13 11/13/15 History mcg (1,000 unit) capsule sertraline 100 mg tablet 100 mg PO QHS depression 06/04/25 History multivitamin with folic acid 400 1 tab PO DAILY supple ment 10/21/14 11/13/15 History mcg tablet rosuvastatin 40 mg tablet 40 mg PO QHS cholesterol 07/23/24 01:00 History fish oil-dha-epa 1,200 mg-144 1 each PO DAILY suppleme nt 11/14/20 Unknown History mg-216 mg capsule albuterol sulfate 90 mcg/actuation 1 - 2 puff inhalati on Q4H PRN PRN 10/16/23 Unknown Rx aerosol inhaler (Ventolin HFA) Wheezing #1 inh gemfibrozil 600 mg tablet 600 mg PO BID pancreatitis 0 12/08/23 12/07/23 10:00 History prevention nadolol 40 mg tablet 40 mg PO BID heart 12/18/23 06/04/25 History calcitriol 0.5 mcg capsule 0.5 mcg PO DAILY bone healt h 05/30/24 Unknown History clonidine HCl 0.1 mg tablet 0.1 mg PO TID hypertension 06/12/24 07/23/24 History ergocalciferol (vitamin D2) 1,250 1,250 mcg PO MOWEFR VITAMIN 07/03/24 Unknown History mcg (50,000 unit) capsule aripiprazole 2 mg tablet 2 mg PO QHS mental health Unknown History losartan 50 mg tablet 50 mg PO DAILY 30 days #30 t abs 07/10/24 07/23/24 01:00 Rx blood sugar diagnostic (FreeStyle #100 ea 09/30/24 Unk nown Rx Lite Strips) blood sugar diagnostic (OneTouch #100 ea 10/31/24 Unkn own Rx Verio test strips) blood-glucose meter (OneTouch #1 ea 10/31/24 Unknown R x Verio Reflect kit) pantoprazole 20 mg tablet,delayed 40 mg (2 x 20 mg) PO DAILY reflux 11/19/24 Unknown Rx release #90 TABLETS insulin lispro 100 unit/mL 18 unit (0.18 mL) subcut TI D #60 mL 12/11/24 Unknown Rx subcutaneous pen (Admelog SoloStar U-100 Insulin lispro) insulin glargine 100 unit/mL (3 25 unit (0.25 mL) subc ut ONCE 12/18/24 Unknown Rx mL) subcutaneous pen (Lantus diabetes #22.5 mL Solostar U-100 Insulin) pen needle, diabetic 31 gauge x #100 ea 12/18/24 Unkno wn Rx 16 (Comfort EZ Pen [place]) blood sugar diagnostic (True #100 ea 12/30/24 Unknown Rx Metrix Glucose Test Strip) blood-glucose meter (True Metrix #1 ea 12/30/24 Unknow n Rx Air Glucose Meter kit) carbamazepine 200 mg tablet 600 mg (3 x 200 mg) PO BID 04/21/25 Unknown Rx seizures #540 tabs gabapentin 300 mg capsule 300 mg PO BID #60 caps 04/21 Unknown Rx trazodone 50 mg tablet 50 mg PO QHS PRN insomnia #3 0 tabs 04/21/25 Unknown Rx cholestyramine 4 gram oral powder 4 g PO HS #239.4 gra ms 05/07/25 Unknown Rx (Cholestyramine Light) sucroferric oxyhydroxide 500 mg 500 mg PO QAC 05/07/25 Unknown History chewable tablet (Velphoro) hydralazine 50 mg tablet 50 mg PO TID 06/04/25 History Allergy/AdvReac Type Severity Reaction Status Date / Time doxazosin (From Cardura) Allergy Severe Bleeding Verified 04/21/25 07:53 erythromycin base Allergy Severe Hives Verified 04/21/25 07:53 loratadine (From Claritin) Allergy Severe Rash Verified 04/21/25 07:53 amlodipine AdvReac nausea/diar Verified 04/21/25 07:53 darryl/dizzin ess Family History Grandmother Cervical cancer Diabetes Hypertension Trigeminal neuralgia Mother Uterine cancer Arthritis Diabetes Hypertension Grandfather Heart disease Arthritis Diabetes Hypertension Unknown Diabetes Arthritis Father Arthritis Diabetes Hypertension Sister Diabetes Hypertension Uncle CVA (cerebral vascular accident) Aunt Cerebral aneurysm Surgical History Hx of esophagogastroduodenoscopy Hx of appendectomy H/O left hemicolectomy Social History Smoking Status: Former smoker Tobacco: How many years used: 20 how long ago did patient quit smoking: quit 2003 second hand exposure: No alcohol intake: former details: quit 2003 substance use type: former substance user Date of last use: Used Marijuana since he was a teenager ROS Constitutional Constitutional: Denies chills, fever(s), frequent falls, lethargy or weakness Eyes Eyes: Denies blind spots, change in vision or loss of vision ENT HEENT: Denies bleeding gums, hoarseness or sore throat Cardiovascular Cardiovascular: Denies abdominal pain, bluish discoloration of hand/feet, chest pain with activity,claudication, cold extremities, cyanosis, dyspnea on exertion, erythema on extremities, irregular heart rhythm, leg edema, leg ulcers, numbness in extremities or weakness in extremities Respiratory/Chest Respiratory/Chest: Denies cough, excessive phlegm production, shortness of breath at rest, shortness of breath with exertion or wheezing Gastrointestinal Gastrointestinal: Denies anorexia, change in stool character, constipation, diarrhea, melena or rectal bleeding Genitourinary Genitourinary: Denies dysuria or hematuria Musculoskeletal Musculoskeletal: Denies abnormal gait Integumentary Integumentary: Reports other Details: ; Denies erythema, non-healing lesions or wounds Neurologic Neurologic: Denies abnormal speech, focal weakness, headache(s), loss of vision,numbness, paresthesias or sensory deficit Hematologic/Lymphatic Hematologic/Lymphatic: Denies easy bleeding, easy bruising or lymphadenopathy Vital Signs Vital Signs Vital Signs: Weight Weight: 199 lb Body Mass Index (BMI) 30.2 Physical Exam Const alert, oriented x3, no apparent distress and healthy appearing General Appearance: cooperative; Negative for combative or lethargic Orientation / Consciousness: awake Exam Limitations: no limitations HEENT Head and Scalp: normocephalic and atraumatic Eyes EOMs intact bilaterally General Eye: normal appearance of both eyes Neck full ROM, no lymphadenopathy, thyroid normal and No no carotid bruits General: trachea midline; Negative for lymphadenopathy or tenderness Thyroid: thyroid normal Lymph Lymphatic: Negative for no lymphadenopathy noted Resp normal respiratory effort and no use of accessory muscles Effort and Inspection: Negative for labored, stridor or audible wheezes Cardio regular rate and regular rhythm Cardio Narrative: fistula pulsatile Peripheral Pulses: brachial pulses present Back/Spine Cervical Spine: cervical ROM normal Extremity full ROM, normal capillary refill and no clubbing, cyanosis or edema Skin no rashes or lesions noted and no wounds Neuro oriented x3, CN's II-XII intact bilaterally, no focal motor deficits and no sensory deficits noted Psych thought process normal, cooperative, affect normal, speech normal and activity/motor behavior normal Assessment & Plan Assessment/Plan (1) Arteriovenous fistula stenosis: QUALIFIERS: Encounter type: initial encounter Qualified Code(s): T82.858A - Stenosis of other vascular prosthetic devices, implants and grafts, initial encounter PLAN: -fistulagram 06/04/25 1208 Cosigner Signature (if applicable): CC: Dr. Kimberlyn East MD; Dr. Kirk Fernandez MD~ Signed [facility]10-08-2025 [facility]08-27-2025 History of Present illness Narrative* Lillian Hall, - 04/23/2025 2:30 PM EDT -Referring Provider for today's consult: Self, Self -Primary Care Provider: Kimberlyn East History of Present Illness Reginaldo Huffman is a 54 y.o. male who presents to the [facility] today for consultation regarding his diagnosis of Follow-up (Pt is doing ok ). I have reviewed his medical, surgical, family and social history and have updated medication and allergy information in the computerized patient record. I have also personally reviewed pertinent outside hospital documentation, laboratory results and imaging as outlined below. Mr. Huffman has a history non-cirrhotic portal hypertension complicated by EV hemorrhage sp EBL thatpresented to clinic for follow up. 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 Mr. Huffman is currently undergoing evaluation for kidney transplantation. As part of his testing, he underwent a CT Angio which revealed evidence of hepatosplenomegaly and varices which prompted his referral to Hepatology clinic. Of note, these imaging findings were also present on MRI abdomen in 11/2015 (in addition to an indeterminate liver lesion) though he reports knowing of this diagnosis even prior to this. In 02/2024, he experienced a GIB as a result of varices. He was admitted locally andunderwent an EGD with EBL performed. He underwent a follow up EGD in 08/2024 with eradicated varicesper report. After his initial clinic appointment, he was recommended to complete a TJLBx which revealed a HVPG on 3 and biopsy without advanced fibrosis. Results were reviewed at [facility] with the consensus of the group being that he did not require an OLT eval as part of his kidney transplant evaluation. He has no acute complaints today. He denies signs of hepatic decompensation including ascites, jaundice, scleral icterus, HE or GIB. Past Medical History He has a past medical history of Alcoholism, Anemia, Anxiety and depression, Asthma, Back problem (08/28/1983), Colon cancer (2013), Diabetes mellitus type 1, Esophageal varices, Essential hypertension, benign, GERD (gastroesophageal reflux disease), GIB (gastrointestinal bleeding), H/O infectious mononucleosis, H/O multiple allergies, Hemorrhoids, History of hay fever, Hyperlipidemia, Joint pain, Liver disease, Migraine, Pancreatitis (2002, 2003), Pneumonia (08/28/2013), and Seizure. He has no past medical history of Pacemaker or Renal disease. Past Surgical History Past Surgical History: Procedure Laterality Date INTERPRETATION VENOGRAPHY HEPATIC N/A 01/27/2025 Laterality: N/A; Surgeon: Marshal Paris MD; [facility] BX TRANSCATHETER N/A 01/27/2025 Laterality: N/A; Surgeon: Marshal Paris MD; Location: [facility] INTERPRETATION TRANSCATHETER BX N/A 01/27/2025 Laterality: N/A; Surgeon: Marshal Paris MD; Location: [facility] ([facility]) EGD W/ BX Nov 2013 COLECTOMY PARTIAL OPEN 2013 COLONOSCOPY W/ BX 2013 APPENDECTOMY 1982 Home Medications Current Outpatient Medications Medication Sig ascorbic acid 500 MG Tab Take 1 tablet by mouth daily. carBAMazepine XR 400 MG Tab SR 12 HR Take 200 mg by mouth 2 times daily. (Patient taking differently: Take 200 mg by mouth 3 times daily.) Cholecalciferol (VITAMIN D3) 1000 UNITS Cap take by mouth daily. cloNIDine 0.1 MG tablet Take 1 tablet by mouth 2 times daily. Cyanocobalamin (VITAMIN B-12) 500 MCG Tab SL by Sublingual route daily. gemfibrozil 600 MG Tab Take 1 tablet by mouth 2 times daily. Insulin Glargine (LANTUS SC) Inject 42 Units under the skin 2 times daily. 40 units AM, 30 units at Bedtime (Patient taking differently: Inject 20 Units under the skin 2 times daily. 12/25/2024-20units AM, 20 units at Bedtime) Insulin Lispro, Human, (HUMALOG SC) Inject 32 Units under the skin before meals & at bedtime asneeded. Sliding scale (Patient taking differently: Inject 18 Units under the skin 3 times daily (take before meals).) Losartan 25 MG tablet Take 1 tablet by mouth daily. Multiple Vitamins-Minerals (EQ COMPLETE MULTIVITAMIN-ADULT PO) take by mouth daily. Nadolol 40 MG tablet Take 1 tablet by mouth 2 times daily. Pyridoxine HCl (VITAMIN B-6 PO) take 10 mg by mouth daily. rosuvastatin 20 MG Tab Take 2 tablets by mouth daily. sertraline 100 MG Tab Take 1 tablet by mouth daily. Allergies Allergies Allergen Reactions Jardiance [Empagliflozin] Shortness of Breath and Nausea Only Claritin [Loratadine] Confusion Doxazosin Diarrhea, Headache and Bleeding Erythromycin Hives Social History Reports EtOH daily EtOH use -- 1/ vodka. Quit in 2003 when he developed acute pancreatitis. Quit smiking in 2003. He lives at home with his mother who will be his support about transplant. Family History His family history includes Diabetes in his father and mother; Heart Disease - Other in his father;Hypertension in his father and mother; Other - Specify in his father and mother; Ovarian Cancer in his maternal grandmother and paternal grandmother. Review of Systems GENERAL: Negative for any nausea, vomiting, fevers, chills, or weight loss. NEUROLOGIC: Negative for any blurry vision, blind spots, double vision, facial asymmetry, dysphagia, dysarthria, hemiparesis, hemisensory deficits, vertigo, ataxia. HEENT: Negative for any head trauma, neck trauma, neck stiffness, photophobia, phonophobia, sinusitis, rhinitis. CARDIAC: Negative for any chest pain, dyspnea on exertion, paroxysmal nocturnal dyspnea, peripheraledema. PULMONARY: Negative for any shortness of breath, wheezing, GASTROINTESTINAL: Negative for any abdominal pain, nausea, vomiting, bright red blood per rectum, melena. GENITOURINARY: Negative for any dysuria, hematuria, incontinence. INTEGUMENTARY: Negative for any rashes, cuts, insect bites. RHEUMATOLOGIC: Negative for any joint pains, photosensitive rashes, history of vasculitis or kidneyproblems. HEMATOLOGIC: Negative for any abnormal bruising, frequent infections or bleeding. Physical Exam Blood pressure 136/80, pulse 69, height 1.727 m (5' 8), weight 90.5 kg (199 lb 9.6 oz), SpO2 99%. Wt Readings from Last 3 Encounters: 04/23/25 90.5 kg (199 lb 9.6 oz) 12/25/24 90.2 kg (198 lb 12.8 oz) 12/13/24 88.9 kg (196 lb) Constitutional: Well developed, well nourished male in no acute distress. Oriented to person, place, and time. HEENT: Normocephalic, pupils equal and round, negative for any scleral icterus. Normal appearing oropharynx without any appreciable cervical lymphadenopathy. Cardiovascular: Regular rate and rhythm, with a normal S1/S2, without any appreciable murmurs, rubsor gallops. Pulmonary: Normal breath sounds, without any appreciable crackles, wheezing or rhonchi. Abdominal: Soft, nontender, nondistended with normal bowel sounds without any appreciable ascites. Negative for any appreciable hepatosplenomegaly. Extremities: No LE edema. Negative for any asterixis. Skin: Negative for any appreciable rashes. Negative for palmar erythema. Objective Data: Labs: I reviewed the following: Lab Results Component Value Date SODIUM 137 11/08/2024 POTASSIUM 5.6 (H) 01/27/2025 CHLORIDE 92 (L) 11/08/2024 CO2 32 (H) 11/08/2024 BUN 28 (H) 11/08/2024 CREATSERUM 5.86 (H) 11/08/2024 Lab Results Component Value Date WBC 5.55 11/08/2024 HGB 9.4 (L) 11/08/2024 HCT 27.2 (L) 11/08/2024 PLATELET 196 11/08/2024 MCV 94.8 (H) 11/08/2024 Lab Results Component Value Date ALT 8 (L) 12/25/2024 AST 11 12/25/2024 GGT 25 11/08/2024 ALKPHOS 73 12/25/2024 BILITOTAL 0.4 12/25/2024 BILIDIRECT 0.1 12/25/2024 Serologic Workup: Hepatitis C AB: Negative Hepatitis B surface AB: Positive Hepatitis B surface AG: Negative Hepatitis B core total AB: Negative Hepatitis A Total IgG: Negative KENNETH: Negative ASMA: 1:40 AMA: Negative Ig IgA: 168 IgM: 111 Pathology: Liver Biopsy (01/27/2025): Pathologic Diagnosis A. Liver, transjugular biopsy: Hepatic parenchyma with no significant fibrosis (trichrome stain); see comment Comment: The biopsies show four fragmented cores of adequate hepatic parenchyma with preserved lobular architecture. The lobules show mildly reactive hepatocytes and foci of minimal mixed portal inflammation. Interlobular bile ducts are present and are intact. There is no significant steatosis or ch olestasis (bile stain).Trichrome stain highlights patchy portal fibrosis (A1, A2) and is negative for advanced fibrosis. PAS-D stain is negative for diagnostic intracytoplasmic hyaline globules. Ironstain highlights diffuse sinusoidal kupffer cell iron deposition. Imaging: CT Angio Abdomen (12/01/2024): 1. Patent abdominopelvic and iliofemoral arterial venous vasculature. Mild scattered atheromatous changes noted. 2. Gastric varices and numerous left upper quadrant collaterals. 3. Additional soft tissue and ancillary findings as described above. MRI Abdomen with and without contrast (12/24/2915): 1. Hepatosplenomegaly. Redemonstration of segment 8 liver lesion. The imaging features are indeterminate. Sclerosed hemangioma is a differential. Follow-up MRI recommended in 6 months for reassessment. 2. Tiny nonenhancing foci in the adrenals measuring up to 5 mm are likely benign. 3. No abdominal or pelvic lymphadenopathy. 4. Mild splenomegaly. 5. Small collection adjacent to the inferomedial aspect of the spleen, stable from prior study. Procedures: TJLBx (01/27/2025): HVPG 3 EGD (08/2024) -- Performed in [place], [place] --- Eradicated varices EGD (02/2024) -- Performed in [place], [place] -- EV with stigmata of bleeding s/p EBL Assessment and Plan Reginaldo Huffman is a 54 y.o. male with a past medical history of non-cirrhotic portal hypertension complicated by EV hemorrhage sp EBL that presented to clinic for follow up. 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 PLAN: - Labs (BMP, LFTs, INR) should be performed every 6 months with an updated MELD score. - I recommend that he should continue with esophageal variceal surveillance given history of EV hemorrhage and this is performed by his local GI attending. Next due in 08/2025. - Ordered CT triple phase to follow up indeterminate liver lesion on MRI in 2016 and eval for thrombus as etiology of NCPH -- which was completed earlier today with results pending. - For pain, I recommend acetaminophen, up to but not exceeding 2,000 mg daily, and would try to avoid using NSAIDs for pain control given their risk for mucosal ulceration, bleeding and nephrotoxicity. Would also recommend against using narcotics or benzodiazepines given their risk for precipitating or exacerbating hepatic encephalopathy. - Vaccination status: Encourage vaccination against HAV. He has immunity against HBV. - Colorectal cancer surveillance: Continues surveillance locally with his last colonoscopy in 11/2023 without polyps. - For follow up, he will return to my clinic in 12months. Thank you for allowing us to participate in the care of Reginaldo Huffman. Lillian Hall DO Pad Extractor Tender of Clinical Medicine Division of Gastroenterology, Hepatology and Nutrition [facility] Pager: [phone] * Nicholas Martinez - 04/23/2025 2:30 PM EDT Patient verified name and date of with this [facility] Instructions* Patient Instructions* Lillian Hall DO - 04/23/2025 2:30 PM EDT Labs today Talk to your local Receiving Supervisor about a scope in 08/2025 Follow up in 1year [facility] Evaluation note * Diagnosis Onset Date Resolution Status Admit Date Right carotid bruit acute Augus t 2024 7:44am Polyneuropathy chronic March 7:44am Trigeminal neuralgia chronic Augu st 2024 7:44am Essential tremor inactive March 292024 7:44am Fatigue noneactive April 21, 7:44am History of colon cancer deleted A ugust 2024 11:30am GERD (gastroesophageal reflu x disease) acute May 07, 2025 10:11am Anemia in chronic kidney disease chronic May 07, 2025 10:11am 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 May 07, 2025 10:11am History of colon cancer chronic S eptember 2024 10:11am Loose stools chronic May 072024 10:11am Subepithelial esophageal lesion chronic May 07, 2025 10:11am Arteriovenous fistula stenosis acute June 04, 2025 8:03am CKD stage 5 due to type 1 diabetes mellitus chronic June 18, 2025 10:38am Diabetes 1.5, managed as typ e 1 chronic June 18 10:38am High cholesterol chronic June 18, 2025 10:38am High triglycerides chronic Octobe r 2024 10:38am Hypertension chronic May 10:38am Microalbuminuria chronic June 18, 2025 10:38am Obesity chronic June 18, 2025 10:38am Vitamin D deficiency chronic Octo 2024 10:38am ESRD (end stage renal diseas e) on dialysis acute June 25 10:45am AVF (arteriovenous fistula) chronic June 25, 2025 10:45am Polyneuropathy chronic June 302024 9:49am Trigeminal neuralgia chronic 2024 9:49am Essential tremor inactive June 30, 2025 9:49am [facility] Work Phone: 1(898) 499-125106-27-2025 Evaluation note* Diagnosis Onset Date Resolution Status Admit Date ESRD (end stage renal diseas e) on dialysis acute February 21, 2025 8:29am AVF (arteriovenous fistula) chronic February 21, 2025 8:29am History of colon cancer deleted [facility] 2024 2:00pm Right carotid bruit acute 2024 7:44am Essential tremor chronic March 292024 7:44am Polyneuropathy chronic March 7:44am Trigeminal neuralgia chronic 2024 7:44am Fatigue noneactive April 21, 7:44am [facility] [employer] Work Phone: 1(178) 923-638906-27-2025 Evaluation note* Diagnosis Onset Date Resolution Status Admit Date ESRD (end stage renal diseas e) on dialysis acute February 21, 2025 8:29am AVF (arteriovenous fistula) chronic February 21, 2025 8:29am Right carotid bruit acute Marus 2024 7:44am Polyneuropathy chronic March 7:44am Trigeminal neuralgia chronic 2024 7:44am Essential tremor inactive March 292024 7:44am Fatigue noneactive April 21 025 7:44am History of colon cancer deleted A ugust 2024 11:30am [facility] Work Phone: 1(135) 292-277206-27-2025 Evaluation note* Diagnosis Onset Date Resolution Status Admit Date ESRD (end stage renal disease) on dialysis acute February 21, 2025 8:29am AVF (arteriovenous fistula) chronic February 21, 2025 8:29am Right carotid bruit acute Augus t 2024 7:44am Polyneuropathy chronic March 7:44am Trigeminal neuralgia chronic Augu st 2024 7:44am Essential tremor inactive March 292024 7:44am Fatigue noneactive April 21 7:44am History of colon cancer deleted A ugust 2024 11:30am GERD (gastroesophageal reflu x disease) acute May 07, 2025 10:11am Anemia in chronic kidney disease chronic May 07, 2025 10:11am 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 May 07, 2025 10:11am History of colon cancer chronic S eper 2024 10:11am Loose stools chronic May 072024 10:11am Subepithelial esophageal lesion chronic May 07, 2025 10:11am [facility] Work Phone: 1(205) 676-254606-27-2025 Evaluation note* Diagnosis Onset Date Resolution Status Admit Date ESRD (end stage renal disease) on dialysis acute February 21, 2025 8:29am AVF (arteriovenous fistula) chronic February 21, 2025 8:29am Right carotid bruit acute Augus t 2024 7:44am Polyneuropathy chronic March 7:44am Trigeminal neuralgia chronic Augu st 2024 7:44am Essential tremor inactive March 292024 7:44am Fatigue noneactive April 21 7:44am History of colon cancer deleted A ugust 2024 11:30am GERD (gastroesophageal reflu x disease) acute May 07, 2025 10:11am Anemia in chronic kidney disease chronic May 07, 2025 10:11am 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 May 07, 2025 10:11am History of colon cancer chronic S eptember 2024 10:11am Loose stools chronic May 072024 10:11am Subepithelial esophageal lesion chronic May 07, 2025 10:11am Arteriovenous fistula stenosis acute June 04 8:03am [facility] Work Phone: 1(894) 556-130606-02-2025 Nurse Note* Nursing Notes - Sofia Cardoza RN - 01/27/2025 4:[address]Lewis becker to discharge systolic 185 patient asymptomatic and agrees with plan. Patient has met outpatient Interventional Radiology post procedure and post sedation discharge criteria. RN discussed After Visit Summary with patient and mother. Answered all pt questions. Phone numbers given, voices understanding of materials. Right IJ dressing clean, dry, and intact, no swellingor shadowing noted. Returned to baseline ambulatory state. All patient belongings gathered prior todischarge home. Pt taken by wheelchair to waiting car for discharge home per MD order. [facility]06-02-2025 Miscellaneous Notes* Nursing Notes - Sofia Cardoza RN - 01/27/2025 4:[address]Lewis becker to discharge systolic 185 patient asymptomatic and agrees with plan. Patient has met outpatient Interventional Radiology post procedure and post sedation discharge criteria. RN discussed After Visit Summary with patient and mother. Answered all pt questions. Phone numbers given, voices understanding of materials. Right IJ dressing clean, dry, and intact, no swellingor shadowing noted. Returned to baseline ambulatory state. All patient belongings gathered prior todischarge home. Pt taken by wheelchair to waiting car for discharge home per MD order. * Nursing Notes - Sofia Cardoza RN - 01/27/2025 3:41 PM EDT Patient skipped his AM dose of 0.1mg clonidine, post procedure now with asymptomatic HTN with SPB 190-200 (patient was this elevated prior to procedure as well. Discussed findings with 0.2mg of clonidine administered with goal systolic BP 170. * Nursing Notes - Kimi Sellers RN - 01/27/2025 12:48 PM EDT Interventional Radiology procedure completed with IR Attending MD Paris of transjugular liver biopsy. Pt tolerated procedure with IV sedation and local numbing agent. Surgical path sample time-out done per myself and KLEBER Crowder. Pt to travel to [facility] for post procedure recovery. Post procedure orders for nursing to acknowledge including strict bedrest for 2 hours post biopsy. Intra-procedure pressures obtained by MD as the followinst pressures Right Atrium Pressure: 8 IVC Pressure: 10 Wedge Pressure: 13 Free Hepatic Pressure: 10 CSP: 3 HVP [facility]* Nursing Notes - Sofia Cardoza RN - 01/27/2025 3:41 PM EDT Patient skipped his AM dose of 0.1mg clonidine, post procedure now with asymptomatic HTN with SPB 190-200 (patient was this elevated prior to procedure as well. Discussed findings with 0.2mg of clonidine administered with goal systolic BP 170. [facility]06-02-2025 Nurse Note* Nursing Notes - Kimi Sellers RN - 01/27/2025 12:48 PM EDT Interventional Radiology procedure completed with IR Attending MD Paris of transjugular liver biopsy. Pt tolerated procedure with IV sedation and local numbing agent. Surgical path sample time-out done per myself and KLEBER Crowder. Pt to travel to [facility] for post procedure recovery. Post procedure orders for nursing to acknowledge including strict bedrest for 2 hours post biopsy. Intra-procedure pressures obtained by MD as the followinst pressures Right Atrium Pressure: 8 IVC Pressure: 10 Wedge Pressure: 13 Free Hepatic Pressure: 10 CSP: 3 HVP [facility]06-02-2025 Hospital Discharge instructions* Discharge Instructions* Lizbet Vannesa Stapleton, LOCKET MAKER-COMMERCIAL CENSUS TAKER - 01/27/2025 12:01 PM EDT Home Care after Sedation You have been given medicines during your procedure that might make you sleepy. To prevent problems: 1. Rest for the remainder of the day. You should have someone drive you home and be available for the next [address]. 3. Do not drink alcoholic beverages today. 4. Do not make any important business or legally binding decisions today. 5. Do not work around the stove, machinery or power equipment today. 6. The medicines used for sedation may make you feel nauseated. Start with clear liquids, which is anything that you can see through such as tea, jello, broth and ernesto dharmesh. As you feel better you may add soft foods such as pudding and ice cream. When you no longer feel nauseated you may try your normal diet. You should be back to eating your normal meals after 24 hours. Home Care Instructions After Your Liver Biopsy 1. Go home without making any stops along the way. Rest in bed or on the couch until the next morning. Keep stair climbing to a minimum. Limit your activity for the next two days, no jogging or contact sports. Do not drive until the day after your biopsy. 2. Drink plenty of fluids. You should drink about twice the amount you usually Drink 3. Do not shower or take a tub bath the day of the biopsy. If you want to clean up, take a sponge bath. 4. Remove biopsy site bandage the morning after your biopsy. As you shower or bathe, wash the site gently and pat it dry. Do not scrub the site. 5. Do not lift heavy objects for 3 - 4 days. If your usual activities involve lifting, ask your doctor what is safe for you. 6. Ask your doctor when you may return to work. Call your doctor right away if you have these problems: Bleeding from the biopsy site Dizziness Pain Infection at the biopsy site Bleeding from the biopsy site: Lie down Have someone apply pressure to the site for 5 - 10 minutes, or until bleeding has stopped. If you are not able to stop the bleeding, call 911 or the emergency squad. Dizziness Change position or stand up slowly. Sometimes it helps to sit on the side of the bed for a few minutes before standing up. Pain After having a liver biopsy patients often have discomfort in their shoulder, arm, and neck. If the pain suddenly becomes more severe or if it does not decrease each day after the biopsy, notify your [facility] physician. Infection Signs of infection are increased swelling at or around the biopsy site, redness or pain to touch, drainage from the site, temperature over 100 degrees F. Other Instructions Call your doctor's office for a follow-up appointment if you do not already have one scheduled. Interventional Radiology Contact Information If you have questions or concerns, please call Interventional Radiology at After-Hours or on Weekends, please call the Hospital Pediatric Clinical Nurse Specialist at [phone] and ask them for the Interventional Licensed Embalmer Supervisor On-Call documented in this [facility] History and physical note* WILLIAM Carmen - 01/27/2025 11:13 AM EDT Interventional Radiology Pre Procedure H&P Referring Provider Lillian Hall) Chief Complaint- Transjugular liver biopsy Procedure- Transjugular liver biopsy with hepatic wedge pressures Indication for Procedure- 54 y.o. male with a past medical history of DM and hepatosplenomegaly with varices who is undergoing a kidney transplant, and needs a liver biopsy to clarify the extent of hepatic fibrosis . Interventional Radiology History- No previous liver biopsies Code Status- Full Past Medical History: Diagnosis Date Alcoholism sober since 2003 Anemia Anxiety and depression Asthma Back problem 08/28/1983 Colon cancer 2013 Diabetes mellitus type 1 Esophageal varices type 1 Essential hypertension, benign GERD (gastroesophageal reflux disease) GIB (gastrointestinal bleeding) H/O infectious mononucleosis H/O multiple allergies severe allergies Hemorrhoids History of hay fever Hyperlipidemia Joint pain Liver disease Migraine Pancreatitis 2002, 2003 Pneumonia 08/28/2013 Seizure Past Surgical History: Procedure Laterality Date EGD W/ BX Nov 2013 COLECTOMY PARTIAL OPEN 2013 COLONOSCOPY W/ BX 2013 APPENDECTOMY 1982 Social History Tobacco Use Smoking status: Former Current packs/day: 0.00 Average packs/day: 0.3 packs/day for 17.0 years (4.3 ttl pk-yrs) Types: Cigarettes, Cigars Start date: 09/10/1986 Quit date: 09/10/2003 Years since quittin.3 Smokeless tobacco: Never Vaping Use Vaping status: Never Used Substance Use Topics Alcohol use: No Drug use: No Allergies Allergies Allergen Reactions Jardiance [Empagliflozin] Shortness of Breath and Nausea Only Claritin [Loratadine] Confusion Doxazosin Diarrhea, Headache and Bleeding Erythromycin Hives Medications Prior to Admission Medication Sig Dispense Refill Last Dose/Taking ascorbic acid 500 MG Tab Take 1 tablet by mouth daily. carBAMazepine XR 400 MG Tab SR 12 HR Take 200 mg by mouth 2 times daily. (Patient taking differently: Take 200 mg by mouth 3 times daily.) Cholecalciferol (VITAMIN D3) 1000 UNITS Cap take by mouth daily. cloNIDine 0.1 MG tablet Take 1 tablet by mouth 2 times daily. Cyanocobalamin (VITAMIN B-12) 500 MCG Tab SL by Sublingual route daily. gemfibrozil 600 MG Tab Take 1 tablet by mouth 2 times daily. Insulin Glargine (LANTUS SC) Inject 42 Units under the skin 2 times daily. 40 units AM, 30 units at Bedtime (Patient taking differently: Inject 20 Units under the skin 2 times daily. 12/25/2024-20units AM, 20 units at Bedtime) Insulin Lispro, Human, (HUMALOG SC) Inject 32 Units under the skin before meals & at bedtime asneeded. Sliding scale (Patient taking differently: Inject 18 Units under the skin 3 times daily (take before meals).) Losartan 25 MG tablet Take 1 tablet by mouth daily. Multiple Vitamins-Minerals (EQ COMPLETE MULTIVITAMIN-ADULT PO) take by mouth daily. Nadolol 40 MG tablet Take 1 tablet by mouth 2 times daily. Pyridoxine HCl (VITAMIN B-6 PO) take 10 mg by mouth daily. rosuvastatin 20 MG Tab Take 2 tablets by mouth daily. sertraline 100 MG Tab Take 1 tablet by mouth daily. Review of Systems Denies the following: Arrhythmias, bleeding disorders, COPD, BRENT, seizure disorder Denies previous problems with sedation or topical anesthetics Denies problems lying flat Gen - denies fevers or antibiotic therapy Cardiovascular - denies CP or palpitations Respiratory - denies SOB Gastrointestinal - denies nausea or vomiting; denies abdominal pain Renal - denies dysuria, hematuria or flank pain Neuromuscular - denies neuropathy; denies weakness Physical Exam Blood pressure (P) 184/85, pulse 63, temperature 97.7 F (36.5 C), temperature source Oral, SpO2 97%. General: Alert and oriented; no acute distress Cardio: RRR Lungs: Clear to auscultation bilaterally Neurological: No focal deficits Skin: Warm and dry Laboratory Data Lab Results Component Value Date/Time PT 14.5 (H) 11/08/2024 12:04 PM INR 1.1 11/08/2024 12:04 PM PLATELET 196 11/08/2024 12:04 PM WBC 5.55 11/08/2024 12:04 PM HGB 9.4 (L) 11/08/2024 12:04 PM POTASSIUM 5.6 (H) 01/27/2025 10:16 AM BUN 28 (H) 11/08/2024 12:04 PM CREATSERUM 5.86 (H) 11/08/2024 12:04 PM CREATSERUM 1.16 12/24/2015 11:33 AM GFR 11 (L) 11/08/2024 12:04 PM GFR >60 12/24/2015 11:33 AM Impression and Plan Hepatosplenomegaly with varices -To IR lab for transjugular liver biopsy with hepatic wedge pressures. DM- accucheck 187. Will give lispro 1units for coverage. HTN- BP 202/90. Will administer hydralazine 10mg. Monitor during procedure. Trigeminal Neuralgia - well controlled but has seizures when he gets too excited/worked up. ESRD - HD on . K 5.6 today. Lizbet Stapleton APRN-COMMERCIAL CENSUS TAKER 01/27/2025 11:54 AM Cosigned by Marshal Paris MD at 01/27/2025 12:25 PM EDT [facility] Work Phone: 1(259) 207-287106-02-2025 History and physical note* WILLIAM Carmen - 01/27/2025 11:13 AM EDT Interventional Radiology Pre Procedure H&P Referring Provider Lillian Hall) Chief Complaint- Transjugular liver biopsy Procedure- Transjugular liver biopsy with hepatic wedge pressures Indication for Procedure- 54 y.o. male with a past medical history of DM and hepatosplenomegaly with varices who is undergoing a kidney transplant, and needs a liver biopsy to clarify the extent of hepatic fibrosis . Interventional Radiology History- No previous liver biopsies Code Status- Full Past Medical History: Diagnosis Date Alcoholism sober since 2003 Anemia Anxiety and depression Asthma Back problem 08/28/1983 Colon cancer 2013 Diabetes mellitus type 1 Esophageal varices type 1 Essential hypertension, benign GERD (gastroesophageal reflux disease) GIB (gastrointestinal bleeding) H/O infectious mononucleosis H/O multiple allergies severe allergies Hemorrhoids History of hay fever Hyperlipidemia Joint pain Liver disease Migraine Pancreatitis 2002, 2003 Pneumonia 08/28/2013 Seizure Past Surgical History: Procedure Laterality Date EGD W/ BX Nov 2013 COLECTOMY PARTIAL OPEN 2013 COLONOSCOPY W/ BX 2013 APPENDECTOMY 1982 Social History Tobacco Use Smoking status: Former Current packs/day: 0.00 Average packs/day: 0.3 packs/day for 17.0 years (4.3 ttl pk-yrs) Types: Cigarettes, Cigars Start date: 09/10/1986 Quit date: 09/10/2003 Years since quittin.3 Smokeless tobacco: Never Vaping Use Vaping status: Never Used Substance Use Topics Alcohol use: No Drug use: No Allergies Allergies Allergen Reactions Jardiance [Empagliflozin] Shortness of Breath and Nausea Only Claritin [Loratadine] Confusion Doxazosin Diarrhea, Headache and Bleeding Erythromycin Hives Medications Prior to Admission Medication Sig Dispense Refill Last Dose/Taking ascorbic acid 500 MG Tab Take 1 tablet by mouth daily. carBAMazepine XR 400 MG Tab SR 12 HR Take 200 mg by mouth 2 times daily. (Patient taking differently: Take 200 mg by mouth 3 times daily.) Cholecalciferol (VITAMIN D3) 1000 UNITS Cap take by mouth daily. cloNIDine 0.1 MG tablet Take 1 tablet by mouth 2 times daily. Cyanocobalamin (VITAMIN B-12) 500 MCG Tab SL by Sublingual route daily. gemfibrozil 600 MG Tab Take 1 tablet by mouth 2 times daily. Insulin Glargine (LANTUS SC) Inject 42 Units under the skin 2 times daily. 40 units AM, 30 units at Bedtime (Patient taking differently: Inject 20 Units under the skin 2 times daily. 12/25/2024-20units AM, 20 units at Bedtime) Insulin Lispro, Human, (HUMALOG SC) Inject 32 Units under the skin before meals & at bedtime asneeded. Sliding scale (Patient taking differently: Inject 18 Units under the skin 3 times daily (take before meals).) Losartan 25 MG tablet Take 1 tablet by mouth daily. Multiple Vitamins-Minerals (EQ COMPLETE MULTIVITAMIN-ADULT PO) take by mouth daily. Nadolol 40 MG tablet Take 1 tablet by mouth 2 times daily. Pyridoxine HCl (VITAMIN B-6 PO) take 10 mg by mouth daily. rosuvastatin 20 MG Tab Take 2 tablets by mouth daily. sertraline 100 MG Tab Take 1 tablet by mouth daily. Review of Systems Denies the following: Arrhythmias, bleeding disorders, COPD, BRENT, seizure disorder Denies previous problems with sedation or topical anesthetics Denies problems lying flat Gen - denies fevers or antibiotic therapy Cardiovascular - denies CP or palpitations Respiratory - denies SOB Gastrointestinal - denies nausea or vomiting; denies abdominal pain Renal - denies dysuria, hematuria or flank pain Neuromuscular - denies neuropathy; denies weakness Physical Exam Blood pressure (P) 184/85, pulse 63, temperature 97.7 F (36.5 C), temperature source Oral, SpO2 97%. General: Alert and oriented; no acute distress Cardio: RRR Lungs: Clear to auscultation bilaterally Neurological: No focal deficits Skin: Warm and dry Laboratory Data Lab Results Component Value Date/Time PT 14.5 (H) 11/08/2024 12:04 PM INR 1.1 11/08/2024 12:04 PM PLATELET 196 11/08/2024 12:04 PM WBC 5.55 11/08/2024 12:04 PM HGB 9.4 (L) 11/08/2024 12:04 PM POTASSIUM 5.6 (H) 01/27/2025 10:16 AM BUN 28 (H) 11/08/2024 12:04 PM CREATSERUM 5.86 (H) 11/08/2024 12:04 PM CREATSERUM 1.16 12/24/2015 11:33 AM GFR 11 (L) 11/08/2024 12:04 PM GFR >60 12/24/2015 11:33 AM Impression and Plan Hepatosplenomegaly with varices -To IR lab for transjugular liver biopsy with hepatic wedge pressures. DM- accucheck 187. Will give lispro 1units for coverage. HTN- BP 202/90. Will administer hydralazine 10mg. Monitor during procedure. Trigeminal Neuralgia - well controlled but has seizures when he gets too excited/worked up. ESRD - HD on . K 5.6 today. WILLIAM Carmen 01/27/2025 11:54 AM Cosigned by Marshal Paris MD at 01/27/2025 12:25 PM EDT documented in this encounterU [facility] History of Present illness Narrative* Lillian Hall, - 12/25/2024 3:00 PM EDT -Referring Provider for today's consult: Tyrese Lange MBBS -Primary Care Provider: Kimberlyn East History of Present Illness Reginaldo Huffman is a 54 y.o. male who presents to the [facility] today for consultation regarding his diagnosis of New Patient (Pt.states he's his labs have been elevated.). I have reviewed his medical, surgical, family and social history and have updated medication and allergy information in the computerized patient record. I have also personally reviewed pertinent outside hospital documentation, laboratory results and imaging as outlined below. Mr. Huffman has a history of esophageal varices complicated by EV hemorrhage in Summer 2023 s/p EBL ([place], [place]) in the setting of hepatosplenomegaly on imaging that presented to establish care. 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 Mr. Huffman is currently on iHD and undergoing evaluation for kidney transplantation. As part of histesting, he underwent a CT Angio which revealed evidence of hepatosplenomegaly and varices which prompted his referral to Hepatology clinic. Of note, these imaging findings were also present on MRI ab domen in 11/2015 (in addition to an indeterminate liver lesion) though he reports knowing of this diagnosis even prior to this. In 02/2024, he experienced a GIB as a result of varices. He was admitted locally and underwent an EGD with EBL performed. He underwent a follow up EGD in 08/2024 with eradicated varices per report. He has no acute complaints today. He denies signs of hepatic decompensation including ascites, jaundice, scleral icterus, HE or GIB. Past Medical History He has a past medical history of Alcoholism, Anemia, Anxiety and depression, Asthma, Back problem (08/28/1983), Colon cancer (2013), Diabetes mellitus type 1, Esophageal varices, Essential hypertension, benign, GERD (gastroesophageal reflux disease), GIB (gastrointestinal bleeding), H/O infectious mononucleosis, H/O multiple allergies, Hemorrhoids, History of hay fever, Hyperlipidemia, Joint pain, Liver disease, Migraine, Pancreatitis (2002, 2003), Pneumonia (08/28/2013), and Seizure. He has no past medical history of Pacemaker or Renal disease. Past Surgical History Past Surgical History: Procedure Laterality Date EGD W/ BX Nov 2013 COLECTOMY PARTIAL OPEN 2013 COLONOSCOPY W/ BX 2013 APPENDECTOMY 1982 Home Medications Current Outpatient Medications Medication Sig acetaminophen 325 MG tablet Take 1 tablet by mouth as needed. ascorbic acid 500 MG Tab Take 1 tablet by mouth daily. carBAMazepine XR 400 MG Tab SR 12 HR Take 200 mg by mouth 2 times daily. (Patient taking differently: Take 200 mg by mouth 3 times daily.) Cholecalciferol (VITAMIN D3) 1000 UNITS Cap take by mouth daily. cloNIDine 0.1 MG tablet Take 1 tablet by mouth 2 times daily. Cyanocobalamin (VITAMIN B-12) 500 MCG Tab SL by Sublingual route daily. gemfibrozil 600 MG Tab Take 1 tablet by mouth 2 times daily. Insulin Glargine (LANTUS SC) Inject 42 Units under the skin 2 times daily. 40 units AM, 30 units at Bedtime (Patient taking differently: Inject 20 Units under the skin 2 times daily. 12/25/2024-20units AM, 20 units at Bedtime) Insulin Lispro, Human, (HUMALOG SC) Inject 32 Units under the skin before meals & at bedtime asneeded. Sliding scale (Patient taking differently: Inject 18 Units under the skin 3 times daily (take before meals).) Losartan 25 MG tablet Take 1 tablet by mouth daily. Multiple Vitamins-Minerals (EQ COMPLETE MULTIVITAMIN-ADULT PO) take by mouth daily. Nadolol 40 MG tablet Take 1 tablet by mouth 2 times daily. Pyridoxine HCl (VITAMIN B-6 PO) take 10 mg by mouth daily. rosuvastatin 20 MG Tab Take 2 tablets by mouth daily. sertraline 100 MG Tab Take 1 tablet by mouth daily. Ferrous Fumarate (IRON) 18 MG Tab CR take by mouth daily. (Patient not taking: Reported on 12/25/2024) furOSEmide 20 MG tablet Take 0.5 tablets by mouth 2 times daily. (Patient not taking: Reported on 12/25/2024) Lisinopril 20 MG tablet Take 2 tablets by mouth daily. (Patient not taking: Reported on 12/25/2024) lisinopril 5 MG Tab Take 2 tablets by mouth 2 times daily. (Patient not taking: Reported on 12/25/2024) Allergies Allergies Allergen Reactions Jardiance [Empagliflozin] Shortness of Breath and Nausea Only Claritin [Loratadine] Confusion Doxazosin Diarrhea, Headache and Bleeding Erythromycin Hives Social History Reports EtOH daily EtOH use -- 09/01 vodka. Quit in 2003 when he developed acute pancreatitis. Quit smiking in 2003. He lives at home with his mother who will be his support about transplant. Family History His family history includes Diabetes in his father and mother; Heart Disease - Other in his father;Hypertension in his father and mother; Other - Specify in his father and mother; Ovarian Cancer in his maternal grandmother and paternal grandmother. Review of Systems GENERAL: Negative for any nausea, vomiting, fevers, chills, or weight loss. NEUROLOGIC: Negative for any blurry vision, blind spots, double vision, facial asymmetry, dysphagia, dysarthria, hemiparesis, hemisensory deficits, vertigo, ataxia. HEENT: Negative for any head trauma, neck trauma, neck stiffness, photophobia, phonophobia, sinusitis, rhinitis. CARDIAC: Negative for any chest pain, dyspnea on exertion, paroxysmal nocturnal dyspnea, peripheraledema. PULMONARY: Negative for any shortness of breath, wheezing, GASTROINTESTINAL: Negative for any abdominal pain, nausea, vomiting, bright red blood per rectum, melena. GENITOURINARY: Negative for any dysuria, hematuria, incontinence. INTEGUMENTARY: Negative for any rashes, cuts, insect bites. RHEUMATOLOGIC: Negative for any joint pains, photosensitive rashes, history of vasculitis or kidneyproblems. HEMATOLOGIC: Negative for any abnormal bruising, frequent infections or bleeding. Physical Exam Blood pressure 160/68, pulse 70, resp. rate 16, height 1.727 m (5' 8), weight 90.2 kg (198 lb 12.8oz), SpO2 96%. Wt Readings from Last 3 Encounters: 12/25/24 90.2 kg (198 lb 12.8 oz) 12/13/24 88.9 kg (196 lb) 12/11/24 89.4 kg (197 lb) Constitutional: Well developed, well nourished male in no acute distress. Oriented to person, place, and time. HEENT: Normocephalic, pupils equal and round, negative for any scleral icterus. Normal appearing oropharynx without any appreciable cervical lymphadenopathy. Cardiovascular: Regular rate and rhythm, with a normal S1/S2, without any appreciable murmurs, rubsor gallops. Pulmonary: Normal breath sounds, without any appreciable crackles, wheezing or rhonchi. Abdominal: Soft, nontender, nondistended with normal bowel sounds without any appreciable ascites. Negative for any appreciable hepatosplenomegaly. Extremities: No LE edema. Negative for any asterixis. Skin: Negative for any appreciable rashes. Negative for palmar erythema. Objective Data: Labs: I reviewed the following: Lab Results Component Value Date SODIUM 137 11/08/2024 POTASSIUM 3.9 11/08/2024 CHLORIDE 92 (L) 11/08/2024 CO2 32 (H) 11/08/2024 BUN 28 (H) 11/08/2024 CREATSERUM 5.86 (H) 11/08/2024 Lab Results Component Value Date WBC 5.55 11/08/2024 HGB 9.4 (L) 11/08/2024 HCT 27.2 (L) 11/08/2024 PLATELET 196 11/08/2024 MCV 94.8 (H) 11/08/2024 Lab Results Component Value Date ALT 6 (L) 11/08/2024 AST 10 11/08/2024 GGT 25 11/08/2024 ALKPHOS 57 11/08/2024 BILITOTAL 0.4 11/08/2024 MELD 3.0: 19 at 11/08/2024 12:04 PM MELD-Na: 21 at 11/08/2024 12:04 PM Calculated from: Serum Creatinine: On dialysis. Using the maximum value. Serum Sodium: 137 mmol/L at 11/08/2024 12:04 PM Total Bilirubin: 0.4 mg/dL (Using min of 1 mg/dL) at 11/08/2024 12:04 PM Serum Albumin: 4.3 g/dL (Using max of 3.5 g/dL) at 11/08/2024 12:04 PM INR(ratio): 1.1 at 11/08/2024 12:04 PM Age at listing (hypothetical): 54 years Sex: Male at 11/08/2024 12:04 PM Serologic Workup: Hepatitis C AB: Negative Hepatitis B surface AB: Positive Hepatitis B surface AG: Negative Hepatitis B core total AB: Negative Hepatitis A Total IgG: n/a Imaging: CT Angio Abdomen (12/01/2024): 1. Patent abdominopelvic and iliofemoral arterial venous vasculature. Mild scattered atheromatous changes noted. 2. Gastric varices and numerous left upper quadrant collaterals. 3. Additional soft tissue and ancillary findings as described above. MRI Abdomen with and without contrast (12/24/2915): 1. Hepatosplenomegaly. Redemonstration of segment 8 liver lesion. The imaging features are indeterminate. Sclerosed hemangioma is a differential. Follow-up MRI recommended in 6 months for reassessment. 2. Tiny nonenhancing foci in the adrenals measuring up to 5 mm are likely benign. 3. No abdominal or pelvic lymphadenopathy. 4. Mild splenomegaly. 5. Small collection adjacent to the inferomedial aspect of the spleen, stable from prior study. Procedures: EGD (08/2024) -- Performed in [place], [place] --- Eradicated varices EGD (02/2024) -- Performed in [place], [place] -- EV with stigmata of bleeding s/p EBL Assessment and Plan Reginaldo Huffman is a 54 y.o. male with a past medical history of esophageal varices complicated by EV hemorrhage in Summer 2023 s/p [facility] ([place], [place]) in the setting of hepatosplenomegaly on imaging thatpresented to establish care. 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 PLAN: - Labs (BMP, LFTs, INR) should be performed every 6 months with an updated MELD score. - Serologic workup ordered. - Further workup needs to be completed to better characterize the extent of underlying fibrosis in the setting of hepatosplenomegaly with evidence of portal HTN/known varices. Recommend a TJLBx with HVPG. Based on the above workup, should he requie SLK eval, he would required Oncology clearance given his history and colon cancer and would need to clarify ?cutaneous t cell lymphoma (he denies a known diagnosis of this) - I recommend that he should continue with esophageal variceal surveillance given history of EV hemorrhage and this is performed by his local GI attending. - Ordered CT triple phase to follow up indeterminate liver lesion on MRI in 2015. Update AFP. - For pain, I recommend acetaminophen, up to but not exceeding 2,000 mg daily, and would try to avoid using NSAIDs for pain control given their risk for mucosal ulceration, bleeding and nephrotoxicity. Would also recommend against using narcotics or benzodiazepines given their risk for precipitating or exacerbating hepatic encephalopathy. - Vaccination status: Obtain serologies. - Colorectal cancer surveillance: Continues surveillance locally with his last colonoscopy in 11/2023 without polyps. - For follow up, he will return to my clinic in 4months. Thank you for allowing us to participate in the care of Reginaldo Huffman. Lillian Hall DO Pad Extractor Tender of Clinical Medicine Division of Gastroenterology, Hepatology and Nutrition [facility] Pager: [phone] * Coretta Snyder LPN - 12/25/2024 3:00 PM EDT Patient verified name and date of with this DEPUTY SHERIFF. Pt. Is accompanied by his mother today. documented [facility] encounter[facility] Instructions* Patient Instructions* Lillian Hall DO - 12/25/2024 3:00 PM EDT Complete labs today Schedule CT scan You'll be called to schedule liver biopsy Follow up in 4months with me documented in this encounterU [facility] History of Present illness Narrative* Dara Weaver RN - 12/11/2024 9:30 AM EDT Explained Definity use to patient including potential side effects with emphasis on patient informing the RN/technologist if they develop any symptoms after administration. status: n/a Medication list reviewed. The patient does NOT have an allergy to Definity or known sensitivity to Perflutren or PolyethyleneGlycol (PEG-containing products such as bowel preparations or laxatives): no Port already accessed. Site negative. Definity dose: 1.5 ml diluted with 8.5 ml saline (start with 1-2 ml, additional doses as needed) Total dose given: 3.5ml After administration of Definity contrast, the patient experienced no side effects and was without complaints. Port flushed with saline. Pt instructed to go to Radiology for port removal. documented in [facility] Evaluation note * Diagnosis Onset Date Resolution Status Admit Date History of colon cancer deleted A pril 2024 2:00pm Secondary hyperparathyroidis m (of renal origin) acute December 18, 2024 10:30am Hypertension chronic December 18, 2024 10:30am Obesity chronic December 18 10:30am Type 1 diabetes mellitus wit h diabetic chronic kidney disease chronic December 18, 2024 10:30am Vitamin D deficiency chronic Apri l 2024 10:30am AVF (arteriovenous fistula) chronic December 20, 2024 9:17am ESRD (end stage renal diseas e) on dialysis acute February 21, 2025 8:29am AVF (arteriovenous fistula) chronic February 21, 2025 8:29am [facility] Work Phone: [phone]) 996-473503-26-2025 Telephone encounter Note* Telephone Encounter - Lurdes Haynes RN - 11/20/2024 7:52 AM EDT Called patient to see if he was planning on coming to today's evaluation starting at 8a. I had to leave a . Lurdes Haynes RN November 20, 2024 7:52 AM [facility]03-26-2025 Miscellaneous Notes* Telephone Encounter - Lurdes Haynes RN - 11/20/2024 7:52 AM EDT Called patient to see if he was planning on coming to today's evaluation starting at 8a. I had to leave a VM. Lurdes Haynes RN November 20, 2024 7:52 AM [facility] History of Present illness Narrative* MARIXA Cueva - 11/08/2024 2:00 PM EDT Transplant Recipient Psychosocial Evaluation Demographics: Patient is a 54 y.o., White, Single, male, who presented for a kidney transplant evaluation. Patient was AOx4. Transplant Waterproofing Supervisor role/function was explained and reviewed. The patient was informed that the results of this assessment will be shared with the referring provider and the transplant team. The patient verbalized understanding of this information. The [facility] psychosocial assessment consent form has been explained to patient and has been signed. Patient is completing this evaluation with mother Louis Huffman in the Outpatient setting. Waterproofing Supervisor educated patient on the benefits of completing/filing advanced directives and resources were offered and questions regarding same were answered by this social group worker. Patient identifies with [employer]. Patient confirms being a [place] Citizen. Patient's primary language is [place] Island[place]. Patient denies potential donors. Donor cards and resources provided to include discussion regarding living donation, checklist to prepare for transplant and financial assistance available. Education: Patient s highest level of education is some college. He denies a history of developmental delay orlearning disabilities. Patient is literate. Patient confirms the ability to read, write, and understand verbal instructions. Patient demonstrates moderate health literacy. Functional Status: Patient denies having a home health provider. Patient uses no equipment as DME. Patient reports using oxygen at dialysis. Patient was encouraged to prepare to utilize vitals equipment post-transplant. Patient reports that he has valid license and independent/drives and shares his mother's car. He reports availability of his mother (Louis Huffman) for additional assistance with driving. He reports a vision impairment and wears glasses. Patient reports current or history of no conditions which mayimpact his cognitive state. Patient denies recent changes to memory, concentration, or attention. Understanding of Illness and Transplant Process: Patient reports that his organ failure is related to my diabetes. Patient is on hemodialysis at [facility], attends [employer], and started Jun 2024. Patient reports he was diagnosed with diabetes in 2003 and CKD in 2004. Patient reports learning that he may need a transplant within the last year. His transplant history includes referred [facility]. Patient and mother did not complete transplant education through the provided educational video prior to this assessment. Patient and their support demonstrated moderate understanding of transplant. Patient and support demonstrated good understanding of patient s current medical regimen and health history. Patient and social work discussed the importance of patient follow up at the transplant center for ongoing care and discussed benefits of having access to resources available including medication assistance and financial counseling. Patient and support received transplant education material. Social work encouraged patient to review all medical information and medical questions with transplant nurse coordinator or physician throughout the process. Willingness/Desire for Transplantation: Patient reports that Physician/Specialist suggested transplant to patient. Patient reports that hisreaction after transplant suggestion included I was rivera surprised. He appears motivated towardstransplant. Patient reports that he is motivated for transplant because I want to get off dialysisbecause I can't do the things I really want to do. It is no fun sleeping all the time and not doinganything. Patient denies concerns regarding transplant. Medical Adherence: Patient denies having difficulty following medical recommendations. There is minimal evidence of patient having difficulty following medical recommendations per chart review. Per chart review, patient has missed medications in the past allowing for break through seizures.Patient reports not missingdoses at this time. He denies missing/stopping dialysis early or arriving late and this is confirmed with dialysis records. Patient organizes his medical appointments with the assistance of calendar.Patient educated on benefits of utilizing [employer] and given information on how to obtain an access code and how to operate the program to assist in managing their care. Patient organizes his medications by counting pills daily. Patient is aware of medication regimen. Patient s care is Self-directed. Patient educated on the importance of demonstrating ongoing adherence and ability to continue follow treatment recommendations. Support/Caregiver: Patient housing situation is a ranch style house that his mom owns; he lives in [place], [place] ([place] hours from [facility]). Patient resides with his mother and dog. Patient reports that he has 0 child(jeannie). Patient plans on discharging to home for post-transplant care. Patient s primary support team will include his mother Louis Huffman who is 80 YO and retired. Patient's support confirms that they will be available to take the necessary time off from their lives and/or employment in order to fulfill the commitment of providing support. She denies the presence of any medical and/or mental health issues which might interfere with their ability to assist the recipient during the transplant process. Iftikhar marie's mother appears motivated in making the commitment to provide help. Patient could not identify secondary support. At this time, due to mother's age, support is inadequate and patient must have secondary caregiver complete interview with social group worker. He confirms being comfortable asking for help. Patient denies being a caregiver for someone else. Patient s supportappears actively engaged, to attend appointments with recipient, understanding of the caregiver role, to have history of long-term relationship. There will be no need to relocate post-transplant. Patient was encouraged to discuss needs with family and friends to ensure that he has appropriate care post-surgery. Patient educated on the importance of having support person available for emotional and physical care needs. Financial: Patient is Disabled since 2021 for neuralgia, pancreatitis, and hypertension. He has access to theDrop in regards to financial means pre/post-transplant. Patient confirms being able to meet daily needs. He reports access to Medicaid. Patient denies a history of service. Social work encouraged patient to identify a post-transplant financial plan and encouraged patient to keep in contact with transplant team of any financial changes or benefit needs. Patient was given educational packet with additional resources for fund raising, lodging, and benefit information. Mental Health: Patient confirms a mental health history of Major Depressive Disorder, Generalized Anxiety Disorder, reporting he has struggled with anxiety and depression almost my whole life. Patient acknowledges current symptoms and/or daily functioning concerns, including difficulty concentrating/making decisions. Patient confirms a history of outpatient mental health counseling, reporting he has done over14 years of counseling (last in 2019). Patient confirms current psychotropic medication use; he is currently prescribed aripiprazole 5MG and sertraline 100MG, reporting these are prescribed by his PCP. He has taken sertraline for ~30 years and aripiprazole for ~ 10 years. He reports in the past that he took other psychotropic medications that did not help him, but denies any adverse psychological/cognitive effects from those medications. He confirms a history of psychiatric hospitalizations. Patient reports he was hospitalized at [facility] in 1999 after attempting suicide with a gun. Patient acknowledges an additional history of suicide attempts or self-injurious behaviors. Patient reports hanging attempt in 1987, attempt to slit wrists in 1997, and suicidal ideation in 2004 (plan and intent to overdose). Patient reports his attempts were interrupted by family aside from slitting his wrists, he reports that attempt was self-aborted. Patient reports since 2004, no additio nal SI/SA or HI. Patient denies a history of abuse. Patient confirms feeling safe in his current environment and relationships. Patient reports doing outdoor activities, talking to mom, walking dog, go out in the moon as ways to cope with the stressors related to transplantation and relax during surgery recovery period. Patient and patient's support were educated about the mental health symptoms that some patients have reported experiencing post-transplant including depression and anxiety. Patient was informedof the availability of mental health resources and access to the Transplant Clinical Health Psychologist. Mental Status Exam: Patient's mood was noted as within normal limits Patient's appearance was noted as appropriately dressed and groomed Patient affect was noted as appropriately groomed with normal affect His behavior was noted as calm, cooperative and appropriate Eye contact was maintained and appropriate Insight was good Memory was noted as intact, no impairments noted Patient's attention was sustained. Patient's judgment was noted to be good Patient's speech was normal pitch and normal volume Patient's thought content was noted as within normal limits Psychomotor functioning was within normal limits Visual/auditory/olfactory hallucinations were not noted. Delusions were not noted as present Patient denies current SI, plan and intent along with HI, plan and intent. Alcohol and Substance Use: Tobacco: denies current, reports historic Age of First Use: 17 Date of Last Use: 2003 Frequency: daily Amount: a couple cigarettes/day and 1 cigar every other day Method: cigarettes, cigars Alcohol: denies current use, reports historic use Age of First Use: 17 Date of Last Use: 2003 Frequency: daily for about 10 years Amount: 1/5 of vodka or other liquor ([id number]) Type: liquor History of DUIs: no History of Positive Toxicology screen: no Patient confirms history of problematic alcohol consumption as evidenced by: Substance is taken in larger amounts or over a longer period than was intended. Craving, or a strong desire or urge to use substance. Continued substance use despite having persistent or recurrent social or interpersonal problems Important social, occupational, or recreational activities are given up or reduced because of substance use Patient reported tolerance or withdrawal symptoms Patient reports starting to drink etoh around the age of 17. He reports around 1994 that he began to drink more heavily, including drinking around 1/5 of liquor daily for about 10 years. He reports he would drink the daytime. His mother reports he was not present in family life and it impacted their relationship as he spent more time drinking etoh than with family during that time. He denies blackouts. Does admit to cravings. He reports having some mild withdrawal symptoms when he stopped. He reports that he stopped in 2003 due to etoh inducing pancreatitis. He denies completing AOD treatmentor attending AA/peer support. He reports he has done mental health counseling. He does not keep alcohol in the home or attend alcohol related engagements. Patient is committed to sobriety for his health. Cannabis: denies Opioids: denies illicit use, reports being prescribed Oxycodone ~1 month ago for procedure (has nottaken any for 2 weeks) Stimulants: denies Sedative, Hypnotic,or Anxiolytic: denies Patient denies all other substance use and support person(s) present, outside documentation, and patient's medical records appear to confirm same. Based on evaluation, patient meets criteria for Alcohol Use Disorder, Moderate, In sustained remission. He was provided with no drug and alcohol resources. Patient was not referred for a substance use disorder assessment and treatment based on evaluation, corroborating information from support, external documentation, and medical record information. Psychosocial impression: Given the above information, patient has a SIPAT score of 30 with 1 point(s) due to tobacco use. The current identified psychosocial risk factors include limited understanding of transplant, limited support, historical severe psychopathology, moderate alcohol use disorder, low AOD risk of recidivism, and past nicotine use. Patient's mental health and substance abuse risk factors appear historic in nature with patient reporting 20 years of stability and sobriety. Patient's limited understanding of transplant is due to watching donor video instead of recipient educational video. Patient's support is limited to his 80 YO mother which is not adequate. [facility] and [facility] recommendation list. Patient s mother has signed the support person agreement. Based on patient s presentation, it appears that patient has been forthcoming with evaluation information. Psychosocial evaluation information shared with the multidisciplinary team for continuity of care. Remediation: Given the information obtained and risk factors identified, the following remediation plan was developed and discussed with the patient: Consider PETH to confirm ongoing sobriety from alcohol Identify additional support & support to complete interview with social group worker Complete education with support Continue mental health treatment AZAR Cueva, RAHEEM, [facility] Outpatient Transplant Social Work [facility] The above assessment was conducted by means of corroborating information from patient's chart review, support person(s) report, multiple evidence based clinical tools and a modified version of the [place] Integrated Psychosocial Assessment for Transplant (SIPAT) and the SIPAT-General TXP Long FormSabino et al, 2008; Sabino et al, Psychosomatics 2012. documented in this encounterOSU [facility]03-14-[facility] History of Present illness Narrative* RYANNE Perez - 11/08/2024 1:00 PM EDT Reason for Consultation: Reginaldo Huffman carries the diagnosis of ESRD and is on hemodialysis under your care. He wishes to be evaluated as a potential renal transplant recipient. H/o Present Illness and review of medical records: Patient is a 54 y.o. male who came to the clinic accompanied by his mother. Mr. Huffman was diagnosed as having ESRD secondary to presumed diabetic nephropathy and initiated on dialysis in June 2024. [place] kidney biopsy was not done. 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 Colon cancer: Had chemo with FOLFOX and right hemicolectomy in 2013. 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 Huffman is very compliant with the dialysis and other treatments. Dialysis schedule is . He is oliguric at this time. Denies any urinary bladder symptoms such as incontinence, frequency or urinary retention. No h/o kidney stones or UTIs. Mr. Huffman's health status is stable at present. He denies any recent hospitalizations or infections. Mr. Huffman leads a sedentary lifestyle but is able to participate in the ADLs independently. Is able to walk up to half a mile without stopping. Review of Systems: As in the HPI; other systems were reviewed in detail and found to have no pertinent positives. Current Outpatient Medications Medication Sig Aripiprazole 5 MG tablet Take 0.5 tablets by mouth daily. atenolol 100 MG Tab Take 1 tablet by mouth 2 times daily. carBAMazepine XR 400 MG Tab SR 12 HR Take 200 mg by mouth 2 times daily. Cholecalciferol (VITAMIN D3) 1000 UNITS Cap take by mouth daily. cloNIDine 0.1 MG tablet Take 1 tablet by mouth 2 times daily. Cyanocobalamin (VITAMIN B-12) 500 MCG Tab SL by Sublingual route daily. Ferrous Fumarate (IRON) 18 MG Tab CR take by mouth daily. furOSEmide 20 MG tablet Take 0.5 tablets by mouth 2 times daily. gemfibrozil 600 MG Tab Take 1 tablet by mouth 2 times daily. Insulin Glargine (LANTUS SC) Inject 42 Units under the skin 2 times daily. 40 units AM, 30 units at Bedtime Insulin Lispro, Human, (HUMALOG SC) Inject 32 Units under the skin before meals & at bedtime asneeded. Sliding scale Lisinopril 20 MG tablet Take 2 tablets by mouth daily. lisinopril 5 MG Tab Take 2 tablets by mouth 2 times daily. Losartan 25 MG tablet Take 1 tablet by mouth daily. Multiple Vitamins-Minerals (EQ COMPLETE MULTIVITAMIN-ADULT PO) take by mouth daily. rosuvastatin 20 MG Tab Take 2 tablets by mouth daily. sertraline 100 MG Tab Take 1 tablet by mouth daily. acetaminophen 325 MG tablet take 325 mg by mouth as needed. ascorbic acid 500 MG Tab take 500 mg by mouth daily. Pyridoxine HCl (VITAMIN B-6 PO) take 10 mg by mouth daily. Allergies: Allergies Allergen Reactions Jardiance [Empagliflozin] Shortness of Breath and Nausea Only Claritin [Loratadine] Confusion Doxazosin Diarrhea, Headache and Bleeding Erythromycin Hives Past Medical History: Past Medical History: Diagnosis Date Alcoholism sober since 2003 Anemia Anxiety and depression Asthma Back problem 08/28/1983 Colon cancer 2013 Diabetes mellitus type 1 Esophageal varices type 1 Essential hypertension, benign GERD (gastroesophageal reflux disease) GIB (gastrointestinal bleeding) H/O infectious mononucleosis H/O multiple allergies severe allergies Hemorrhoids History of hay fever Hyperlipidemia Joint pain Liver disease Migraine Pancreatitis 2002, 2003 Pneumonia 08/28/2013 Seizure Family History: family history includes Diabetes in his father and mother; Heart Disease - Other in his father; Hypertension in his father and mother; Other - Specify in his father and mother; Ovarian Cancer in his maternal grandmother and paternal grandmother. Has a brother who he has not seen in a while. No family members with kidney disease that he is aware of. Has no children. Social History: He reports that he quit smoking about 21 years ago. His smoking use included cigarettes and cigars.He started smoking about 38 years ago. He has a 4.3 pack- year smoking history. He has never used smokeless tobacco. He reports that he does not drink alcohol and does not use drugs. Lives with his mother. On disability; worked in a [employer] office in the past. Single; never ; has no significant other. Social History Tobacco Use Smoking status: Former Current packs/day: 0.00 Average packs/day: 0.3 packs/day for 17.0 years (4.3 ttl pk-yrs) Types: Cigarettes, Cigars Start date: 09/10/1986 Quit date: 09/10/2003 Years since quittin.1 Smokeless tobacco: Never Substance Use Topics Alcohol use: No Physical Exam: Blood pressure 160/78, pulse 64, temperature 97.5 F (36.4 C), temperature source Temporal, height 1.727 m (5' 8), weight 88.9 kg (196 lb). Constitutional: Well developed, well nourished, in no physical distress. HEENT: PERRL, no scleral icterus, moist pharynx Neck: Supple, no JVD, no carotid bruits Lungs: Clear to auscultation bilaterally, no labored breathing, no W/R/R Cardiovascular: S1 & S2 with regular rhythm and normal rate, no uremic rub Abdominal: soft, NTTTP, ND, NABS Extremities: No edema, no cyanosis or clubbing, equal distal pulses Neurological: AA/Ox3, moves all four extremities Skin: No rashes or bruises : No CVA tenderness to palpation Musculoskeletal: No muscle tenderness or joint swelling Lymphoreticular system: No lymphadenopathy of neck, axilla or groin Vasc: Fem pulses 2+ bilaterally, Dialysis access R arm AV fistula Laboratory Findings: WBC Count Date Value Ref Range Status 11/08/2024 5.55 3.73 - 10.10 K/uL Final Hemoglobin Date Value Ref Range Status 11/08/2024 9.4 (L) 13.4 - 16.8 g/dL Final Hematocrit Date Value Ref Range Status 11/08/2024 27.2 (L) 39.6 - 48.8 % Final Platelet Count Date Value Ref Range Status 11/08/2024 196 146 - 337 K/uL Final Sodium Date Value Ref Range Status 11/08/2024 137 135 - 145 mmol/L Final Chloride Date Value Ref Range Status 11/08/2024 92 (L) 98 - 108 mmol/L Final BUN Date Value Ref Range Status 11/08/2024 28 (H) 7 - 25 mg/dL Final Potassium Date Value Ref Range Status 11/08/2024 3.9 3.5 - 5.0 mmol/L Final Creatinine Date Value Ref Range Status 11/08/2024 5.86 (H) 0.70 - 1.30 mg/dL Final Glucose Date Value Ref Range Status 11/08/2024 155 (H) 70 - 99 mg/dL Final PT Date Value Ref Range Status 11/08/2024 14.5 (H) 11.9 - 14.2 sec Final PTT Date Value Ref Range Status 11/08/2024 35.8 (H) 24.0 - 34.3 sec Final Total Protein Date Value Ref Range Status 11/08/2024 7.0 6.4 - 8.3 g/dL Final Albumin Date Value Ref Range Status 11/08/2024 4.3 3.5 - 5.0 g/dL Final AST Date Value Ref Range Status 11/08/2024 10 10 - 39 U/L Final ALT Date Value Ref Range Status 11/08/2024 6 (L) 10 - 52 U/L Final GGT Date Value Ref Range Status 11/08/2024 25 8 - 64 U/L Final Bilirubin Total Date Value Ref Range Status 11/08/2024 0.4 <1.5 mg/dL Final Calcium Date Value Ref Range Status 11/08/2024 8.8 8.6 - 10.5 mg/dL Final Phosphorous Date Value Ref Range Status 11/08/2024 4.1 2.2 - 4.6 mg/dL Final Magnesium Date Value Ref Range Status 11/08/2024 2.0 1.6 - 2.6 mg/dL Final Assessment and Plan: In summary, Mr. Huffman is a 54 y.o. male being evaluated for renal transplant.My ryan comments on today's evaluation are as follows: 1. Based on my clinical evaluation and medical chart review today, I believe that Mr. Huffman is a medically acceptable candidate for a kidney transplantation, but this assessment is based on incomplete medical evaluation. We will complete our pre-transplant work-up as per the protocol at our medical center. 2. Given his cardiac risk factors, we will update his cardiac stress test and echocardiogram for coronary artery disease risk stratification. 3. BMI: Acceptable for renal transplantation but will be reviewed by our tick inspector. 4. 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 These are in remission right now. 5. He attended our transplant education session and seems to understand the risks and benefits of kidney transplantation. 6. He will be seen by our medical donation professional today for a detailed pyschosocial evaluation as well as to assess their financial status, social support and compliance. 7. He understands that a living donor transplantation is far superior compared to donor transplantation and will pursue this option as best as they can. He has eligible members in the familyand friends who are likely to volunteer for evaluation. 8. All their other questions were answered in detail. 9. Once all the pertinent medical details are obtained, we will discuss his case in our patient selection committee meeting to make the final decision. Thank you very much for allowing me to participate in this pleasant gentleman's care and please do not hesitate to contact me if you have any questions. Sincerely, Tyrese Lange MD Clinical evaluator transfer students Transplant Parts Counter Salesperson documented [facility] Instructions* Patient Instructions* Oswald Coates RN - 11/08/2024 1:00 PM EDT Items Required for Completion Prior to Patient Selection Committee: TODAY Social Work: You saw social work today. Lab Work: In-clinic labs before you leave today. Chest x-ray: Please take the elevator to the second floor, turn right down the hallway, and go through the double doors. Radiology will be on the left side. Once that is complete today's appointment is finished. AFTER CLINIC VISIT Transplant Psychology: [phone] Opt 1 If Transplant Social Work refers you to Transplant Psychology, before you leave the clinic, please stop at the net front end developer, and schedule this appointment. Your support person will need to be present for this appointment. The following orders have been placed. To schedule, please call [phone]. Echocardiogram Cardiac Stress Test CT Abdominal/Pelvis angiogram Please work with your Primary Care Provider (PCP) or director digital communications to schedule these tests when appropriate and contact your Cnc Cutting Operator upon completion. Cancer Screenings: Colonoscopy (Age 50>) Dental Clearance: Please work with your dentist to schedule an exam to fill out and fax the Pre- Transplant Dental Form to the number listed on it. Financial Assessment: If you have not completed a financial assessment, one will be sent to you in Meetup or emailed to you. Please call your manager financial to complete your financial assessment or with any questions. Princess Mccollum [phone]. Today in clinic you were seen by RYANNE Contreras and your Pre Cnc Cutting Operator Oswald Coates. It is the expectation of the [facility] that you will complete the following items: Schedule all of your tests, including your health and wellness visits and financial assessment within 14 business days from this visit; and Complete your scheduled tests within 90 days from this visit. It is your responsibility to provide us with your testing schedule and location if you chose to have procedures done outside of [facility]. Please note that testing done at other facilities that are not [facility], will need orders to be sent by either your PCP or director digital communications. [facility] transplant will not be able to assist with insurance issues fortesting that is not done through [facility]. Failure to complete required scheduling and testing in a timely manner will result in early closureof your candidacy. If your evaluation is closed due to these requirements not being met, you will be unable to be referred again for 6 months. Once you have completed all your required diagnostic testing, please let me know so I can present your case to our Patient Selection Committee. A final determination of candidacy will be made by the committee, and you will be notified of the decision on that date. Please note, you are NOT on the tra nsplant list until you are notified by a member of the transplant team after the patient selection committee decision. Please consider obtaining the Hepatitis B vaccine series if you have not already received it. We offer the vaccine at the [facility] on the ground floor, or you can contact a local health department. You may also speak to your Primary Care Provider (PCP) or Parts Counter Salesperson to get vaccinated. documented in this encounter[facility]03-05-2025 Evaluation note* Diagnosis Onset Date Resolution Status Admit Date Vascular dialysis catheter i n place inactive October 30, 2024 7:21am History of colon cancer deleted A pril 2024 2:00pm Secondary hyperparathyroidis m (of renal origin) acute December 18, 2024 10:30am Hypertension chronic December 18, 2024 10:30am Obesity chronic December 18 10:30am Type 1 diabetes mellitus wit h diabetic chronic kidney disease chronic December 18, 2024 10:30am Vitamin D deficiency chronic Apri l 2024 10:30am AVF (arteriovenous fistula) chronic December 20, 2024 9:17am [employer] Work Phone: 1([phone]) 226-289101-21-2025 NoteHNO ID: [id number] Author: DIONE LOVE RN Service: ? Author Type: Registered Nurse Type: Progress Notes Filed: 09/18/2024 08:56 Note Text: Kidney PreTransplant compounder helper Referring physician:Dialysis Center Neprhologist: Radha Kelley Referral intake:see phone encounter dated: 09-11-24 CT abd/pel:Date done 11-03-23 ( images here. Report is with the images) ECHO/EF:Date 11-23-22/ 68.8% Kidney Disease Cause: Hx: DM1/HTN, Different from intake: Dialysis start date on 272707-18-2407/2014: Terminal ileum and colon, extended right hemicolectomy - Invasive moderately differentiated adenocarcinoma with mucinous differentiation (see synoptic report and comment). - Metastatic adenocarcinoma in one lymph node (). - Separate tubular adenoma. - Exogenous pigment consistent with tattoo site. - [facility] History of Present illness Narrative* Dione Love RN - 09/17/2024 3:39 PM EST Kidney PreTransplant compounder helper Referring physician:Dialysis Center Neprhologist: Radha Kelley Referral intake:see phone encounter dated: 09-11-24 CT abd/pel:Date done 11-03-23 ( images here, still need report, requested) ECHO/EF:Date 11-23-22/ 68.8% Kidney Disease Cause: Hx: DM1/HTN, Different from intake: Dialysis start date on 272707-18-2407/2014: Terminal ileum and colon, extended right hemicolectomy - Invasive moderately differentiated adenocarcinoma with mucinous differentiation (see synoptic report and comment). - Metastatic adenocarcinoma in one lymph node (). - Separate tubular adenoma. - Exogenous pigment consistent with tattoo site. - Surgical margins are negative for neoplasm documented [facility]25 Telephone encounter Note * Telephone Encounter - Kenneth Lake - 09/11/2024 12:20 PM EST KIDNEY TRANSPLANT REFERRAL (enter above which organ the patient needs; Kidney, Pancreas or Kidney/Pancreas) Is this referral for a Safety Net or HIV Patient? No (Safety Net = Pt needing an additional transplant within 12 months for any organ) Reginaldo Huffman [phone] Spoke with: Patient Best Contact FOR PANCREAS AND KIDNEY/PANCREAS TRANSPLANT AGE 55+ is a HARD STOP If patient is NOT on Dialysis & has a GFR >21 is a HARD STOP REFERRING ORNAMENTAL METAL WORKER / PHYSICIAN: Radha Nayak Have you ever been evaluated for kidney/pancreas transplant? No If YES, where? N/A Status of listing/evaluation: N/A Have you had a previous transplant? No Have you had one or both kidneys removed: No Reason: N/A OUT OF STATE MEDICAID PATIENTS: [place] - run the Medicaid through [employer] to determine if the coverage is Out of Network (OON) with [facility]. If the Medicaid is OON, inform the patient that their PCP will need to send a referral to the Outof State Medicaid for a Transplant Evaluation. Have you been seen at another Transplant Center that was in-network with your Out of State (O[place]) Medicaid and denied a Transplant Evaluation? No Has your PCP sent in a referral for transplant to your ([place]) Medicaid case technician? No If the patient has Medicare A/B as their primary insurance please ask the patient for their secondary insurance coverage. Height: 5.8 Weight: 200 BMI: 30.4 KIDNEY TRANSPLANT BMI>42 is a HARD STOP PANCREAS TRANSPLANT BMI>32 is a HARD STOP Have you had weight loss without trying within the last 30 days? No If YES, please complete the Malnutrition Screening Tool (MST). Malnutrition Screening Tool (MST) If YES, how much weight have you lost? 2.2-11 lbs (1-5 Kg)- 1 Weight loss score: 0 Have you been eating poorly in the last week because of a decreased appetite? No- 0 Appetite score: 0 Total MST score (weight loss + appetite scores): 0 Score of 2 or more = referral to registered dietitian for an individual appointment ___ Any history of Smoking/Vaping/Nicotine products: Ex-smoker quit 2004 If a current smoker, this is a HARD STOP Packs/Day 1 X # of Yrs smoked 6 = Oxygen use: NO If on continuous oxygen this is a HARD STOP Blood Transfusion: Are you willing to accept a blood transfusion if needed? Yes If NO this is a HARD STOP Assistive devices: No assistive device Activity Level: Light activity COPD/Emphysema/Other pulmonary problem: No Dialysis: [facility] Days: Dialysis start date: 05/12/2024 If not on dialysis, what is your GFR? N/A Do you have Diabetes? Type 1 Age diagnosed: 9 Insulin dependent: Yes Hypoglycemic unawareness: Yes Have you had a Kidney Biopsy: No Have you had a Liver Biopsy: No Dx of Cirrhosis? No Dx of Hepatitis? No Hx of ETOH? No Hx of Drug use? No Hx of Psychiatric disorder? No Dx of HIV/AIDS? No if yes, Infectious Disease doctor name/where? Hx of Cancer? Yes, Colon 2013 [facility] Hx of Hypertension? Yes Hx of [place]/Heart Attack? No Hx of TIA/CVA or Stroke? No Are you on a blood thinner? No If YES which medication are you on? N/A Have you had a CABG or STENTS? No Have you ever had a Stress Test? [facility]. [address] [place] [address]. [phone]. 2019 Have you ever had an Echo? No Have you ever had a Cardiac Cath? No CT Abdomen/Pelvis: Yes. If yes, date and location: 4 month ago. [facility]. [address] [place] [address]. . Mammogram: No Pap Test: No Colonoscopy: [facility]. [address] [place] [address]. [phone]. 2019. 4month ago. Hx of Lupus? No Sickle Cell Trait or Disease: No Have you had any prior surgeries? yes Colon cancer 2013 Do you have a potential living donor? No MyCHART Is the patient signed up for Pryvt? No If YES - send patient the Kidney/Pancreas New Referral Message. If NO - obtain their email address AND send Meet My Friendshart sign up information: email address: [email or web address] Is the patient okay with having a Virtual Appt: No ( patient does not have a computer) What facilities do we need outside records from: [facility]. [address] [place] [address]. [phone] Have records been retrieved from Care Everywhere: Yes. Have records been requested from [facility]? Yes Additional Comments about patient/evaluation: No Route the referral to the Kidney Txp locomotive operator helper, Dione Love. Kenneth Lake [facility]01-15-[facility] Miscellaneous Notes* Telephone Encounter - Kenneth Lake - 09/11/2024 12:20 PM EST KIDNEY TRANSPLANT REFERRAL (enter above which organ the patient needs; Kidney, Pancreas or Kidney/Pancreas) Is this referral for a Safety Net or HIV Patient? No (Safety Net = Pt needing an additional transplant within 12 months for any organ) Reginaldo Huffman [phone] Spoke with: Patient Best Contact FOR PANCREAS AND KIDNEY/PANCREAS TRANSPLANT AGE 55+ is a HARD STOP If patient is NOT on Dialysis & has a GFR >21 is a HARD STOP REFERRING ORNAMENTAL METAL WORKER / PHYSICIAN: Radha Nayak Have you ever been evaluated for kidney/pancreas transplant? No If YES, where? N/A Status of listing/evaluation: N/A Have you had a previous transplant? No Have you had one or both kidneys removed: No Reason: N/A OUT OF STATE MEDICAID PATIENTS: [place] - run the Medicaid through [facility] to determine if the coverage is Out of Network (OON) with [facility]. If the Medicaid is OON, inform the patient that their PCP will need to send a referral to the Outof State Medicaid for a Transplant Evaluation. Have you been seen at another Transplant Center that was in-network with your Out of State (OOS) Medicaid and denied a Transplant Evaluation? No Has your PCP sent in a referral for transplant to your ([place]) Medicaid case technician? No If the patient has Medicare A/B as their primary insurance please ask the patient for their secondary insurance coverage. Height: 5.8 Weight: 200 BMI: 30.4 KIDNEY TRANSPLANT BMI>42 is a HARD STOP PANCREAS TRANSPLANT BMI>32 is a HARD STOP Have you had weight loss without trying within the last 30 days? No If YES, please complete the Malnutrition Screening Tool (MST). Malnutrition Screening Tool (MST) If YES, how much weight have you lost? 2.2-11 lbs (1-5 Kg)- 1 Weight loss score: 0 Have you been eating poorly in the last week because of a decreased appetite? No- 0 Appetite score: 0 Total MST score (weight loss + appetite scores): 0 Score of 2 or more = referral to registered dietitian for an individual appointment ___ Any history of Smoking/Vaping/Nicotine products: Ex-smoker quit 2004 If a current smoker, this is a HARD STOP Packs/Day 1 X # of Yrs smoked 6 = Oxygen use: NO If on continuous oxygen this is a HARD STOP Blood Transfusion: Are you willing to accept a blood transfusion if needed? Yes If NO this is a HARD STOP Assistive devices: No assistive device Activity Level: Light activity COPD/Emphysema/Other pulmonary problem: No Dialysis: [facility] : Dialysis start date: 05/12/2024 If not on dialysis, what is your GFR? N/A Do you have Diabetes? Type 1 Age diagnosed: 9 Insulin dependent: Yes Hypoglycemic unawareness: Yes Have you had a Kidney Biopsy: No Have you had a Liver Biopsy: No Dx of Cirrhosis? No Dx of Hepatitis? No Hx of ETOH? No Hx of Drug use? No Hx of Psychiatric disorder? No Dx of HIV/AIDS? No if yes, Infectious Disease doctor name/where? Hx of Cancer? Yes, Colon 2013 [facility] Hx of Hypertension? Yes Hx of [place]/Heart Attack? No Hx of TIA/CVA or Stroke? No Are you on a blood thinner? No If YES which medication are you on? N/A Have you had a CABG or STENTS? No Have you ever had a Stress Test? [facility]. [address] [place] [address]. [phone]. 2019 Have you ever had an Echo? No Have you ever had a Cardiac Cath? No CT Abdomen/Pelvis: Yes. If yes, date and location: 4 month ago. [facility]. [address] [place] [address]. . Mammogram: No Pap Test: No Colonoscopy: [facility]. [address] [place] [address]. [phone]. 2019. 4month ago. Hx of Lupus? No Sickle Cell Trait or Disease: No Have you had any prior surgeries? yes Colon cancer 2013 Do you have a potential living donor? No MyCHART Is the patient signed up for Meetup? No If YES - send patient the Kidney/Pancreas New Referral Message. If NO - obtain their email address AND send Meet My Friendshart sign up information: email address: [email or web address] Is the patient okay with having a Virtual Appt: No ( patient does not have a computer) What facilities do we need outside records from: [facility]. [address] [place] [address]. [phone]. 2019 Have records been retrieved from Care Everywhere: Yes. Have records been requested from [facility]? Yes Additional Comments about patient/evaluation: No Route the referral to the Kidney Txp locomotive operator helper, Dione Love. Kenneth Lake documented in this encounterTrinity [facility] System11-26-2024 [facility]11-13-2024 [facility]04-12-2024 Progress note Author Alfredo Ag [facility] December 08, 2023 4:13pm Note Date/Time December 08, 2023 4:1 3pm [facility] Medical Records Department [address] [place] [address] Progress Note - Hospitalist 12/08/23 1608 MR#: [id number] Acct: [id number] Name: REGINALDO HUFFMAN Rep #:[id number] : 1970 53 From: Alfredo Ag DO PCP: Luciana Garcia DO Status:ADM I N Location: [place] [address] Reason for Visit Reason for Visit: Diagnoses Hypertensive urgency (12/07/23) Acute kidney failure, unspecified (12/07/23) Chronic kidney disease, stage 4 (severe) (12/07/23) Subjective Subjective Patient was seen and examined today, I talked with nephrology about his care. Patient's creatinine is improved, his potassium is normal. I talked to nephrology about placing him back on lisinopril and she thought that this was okay. Objective Data Objective Data Vital Signs: Vital Signs Temp Pulse Resp BP Pulse Ox O2 Del Method 97.3 F L 69 16 182/87 H 99 Room Air 12/08/23 12:00 12/08/23 12:58 12/08/23 12:00 12/08/23 12:00 12/08/23 12:00 12/08/23 12:00 Oxygen Delivery Method Room Air Weight: 91.1 kg Body Mass Index (BMI) 30.5 Intake & Output: Intake and Output for Last 24 Hours 12/06/23 12/07/23 12/08/23 23:59 23:59 23:59 Intake Total 8.34 / 2137.34 Balance 2137.34 / 2137.34 Lab / Micro Data 12/08/23 07:36 12/08/23 07:36 Labs: Laboratory Results - last 24 hr 12/07/23 19:02: WBC 5.3, RBC 2.82 L, Hgb 8.6 L, Hct 25.2 L, MCV 89.4, MCH 30.5, MCHC 34.1, RDW Std Deviation 43.9, RDW Coeff of Ever 13.5, Plt Count 202, MPV 10.5, Immature Gran % (Auto) 0.600, Neut % (Auto) 61.2, Lymph % (Auto) 31.0, [place] % (Auto) 5.3, Eos % (Auto) 1.3, Baso % (Auto) 0.6, Absolute Neuts (auto) 3.2, Absolute Lymphs (auto) 1.63, Nucleated RBC % 0, Sodium 136, Potassium 4.7, Chloride 113 H, Carbon Dioxide 20.0 L, Anion Gap 3 L, BUN 39 H, Creatinine 4.39 H, Estim Creat Clear Calc 21.05, Est GFR (MDRD) Af Amer 18 L, Est GFR (MDRD) Non-Af 15 L, BUN/Creatinine Ratio 8.9 L, Glucose 186 H, Calcium 7.7 L 12/07/23 22:54: POC Glucose 82 12/08/23 02:48: POC Glucose 138 H 12/08/23 07:36: WBC 5.5, RBC 2.92 L, Hgb 8.8 L, Hct 26.1 L, MCV 89.4, MCH 30.1, MCHC 33.7, RDW Std Deviation 44.6 H, RDW Coeff of Ever 13.7, Plt Count 176, MPV 10.0, Immature Gran % (Auto) 0.900, Neut % (Auto) 68.3, Lymph % (Auto) 25.6, [place] % (Auto) 3.7, Eos % (Auto) 1.1, Baso % (Auto) 0.4, Absolute Neuts (auto) 3.7, Absolute Lymphs (auto) 1.40, Nucleated RBC % 0, Sodium 135 L, Potassium 4.9, Chloride 112 H, Carbon Dioxide 18.0 L, Anion Gap 5, BUN 35 H, Creatinine 3.92 H, Estim Creat Clear Calc 23.33, Est GFR (MDRD) Af Amer 21 L, Est GFR (MDRD) Non-Af 17 L, BUN/Creatinine Ratio 8.9 L, Glucose 216 H, Hemoglobin A1c 7.3 H, Calcium 7.8 L, Phosphorus 3.8, Magnesium 1.5 L, Total Bilirubin 0.20, AST8 L, ALT 10 L, Alkaline Phosphatase 75, Total Protein 5.9 L, Albumin 2.3 L, Globulin 3.6, Albumin/Globulin Ratio 0.6 L, Triglycerides 439 H, Cholesterol 225H, LDL Cholesterol TNP, VLDL Cholesterol TNP, HDL Cholesterol 37 L, TSH 0.34 L 12/08/23 11:47: POC Glucose 109 H Radiography Diagnostic Testing: Radiology Impression Renal Ultrasound 12/08/23 00:42 IMPRESSION: Bilateral simple benign-appearing renal cysts. Electronically Signed: Steve Holguin MD at 12:27 EDT , Physical Exam Const alert, oriented x3, no apparent distress and healthy appearing General Appearance: cooperative, well kempt and well developed Orientation / Consciousness: awake, oriented to person, oriented to place and oriented to time HEENT normocephalic and moist oral mucous membranes Eyes PERRL, EOMs intact bilaterally and conjunctivae normal Neck supple, no JVD, thyroid normal and no carotid bruits General: trachea midline Resp normal respiratory effort and clear to auscultation bilaterally Auscultation: Negative for rales, rhonchi or wheezes Cardio regular rate, regular rhythm, no murmurs, no rub and no gallops GI normal to inspection, nondistended, normoactive bowel sounds, soft to palpation,non-tender and non-distended Extremity no clubbing, cyanosis or edema Skin no rashes or lesions noted General Skin Exam: no breakdown Neuro oriented x3, CN's II-XII intact bilaterally, no focal motor deficits and no sensory deficits noted Sensorium / Orientation: awake and alert Speech: speech normal Psych affect normal Assessment & Plan Assessment/Plan (1) Hyperkalemia: PLAN: Plan 1. Acute kidney injury-patient's kidney function is improved with administration of fluids, continue fluids #2 hyperkalemia-in reviewing the patient's medical records, this appears to be isolated, labs will be monitored, patient's potassium is normal presently #3 chronic kidney disease stage IV-patient is being followed by nephrology, complicates care, management, recovery, and prognosis #4 hypertensive urgency-patient's blood pressure will be monitored, blood pressure medicines will be adjusted if needed Total clinical time spent by myself addressing the patient's medical issues, reviewing all of his data, and collaborating with patient's care team: 35 minutes Charges/Coding Visit Charges Inpatient E&M: 71901 Subs Hosp L2 12/08/23 1613 <Electronically signed by Alfredo Ag DO> Cosigner Signature (if applicable): CC: ~ Signed [facility] Work Phone: 1(421) 904-289104-12-2024 History and physical note Author Landry James [facility] December 08, 2023 6:11am Note Date/Time December 07, 2023 8:5 4pm [facility] Medical Records Department [address] [place] [address] H&P Exam - Hospitalist 12/07/232039 MR#: [id number] Acct: [id number] Name: REGINALDO HUFFMAN Rep #:[id number] : 1970 53 From: Landry Brunner DO PCP: Luciana Garcia DO Status:ADM I N Location: [place] [address] HPI - General General Date of Admission: 12/07/23 Date of Service: 12/07/23 Chief Complaint: Worsening kidney function, Hyperkalemia and Elevated Blood Pressure. HPI Narrative REGINALDO HUFFMAN, is a 53 M with a past medical history of essential hypertension; on Lasix, lisinopril and nadolol, hyperlipidemia, obesity; with BMI of 31.2 thisadmission, diabetes mellitus type 1.5; of unknown control after severe bout of pancreatitis, history of colon cancer; status post Left hemicolectomy (2013) with chronic port in left upper chest in place, seizure disorder; on carbamazepine, Sezary disease, history of tobacco abuse (quit ~20 years ago), history of alcohol abuse, fatty liver, chronic hepatitis C; with gastric and splenic varices without bleeding, history of appendectomy, asthma, trigeminal neuralgia, history of syncope, history of vertigo, depression, osteoarthritis and chronic kidney disease; stage IV with associated anemia followed by Dr. Rm of the nephrology service who presents to [facility] ER complaining of worsening kidney function, hyperkalemia on recent labs and persistently elevated blood pressure. Mr. Huffman reports he was informed that he had worsening kidney function with an elevated serum creatinine of 4.57 mg/dL(up from his baseline of approximately 3.23 mg/dL) along with new acute hyperkalemia of 5.7 mmol/L (up from his baseline of approximately 4.8 mmol/L) upon routine lab testing done as an outpatient earlier today. He goes on to state that he has been taking his 40 mg Lasix tablet twice daily after breaking it in half along with his normal dose of lisinopril but he has noticed his blood pressure has been persistently elevated in the ~200/100 mmHg range with associated lightheadedness that is made worse while standing and is better when lying down. He denies other recent illness, recent medication changes, hematuria, dysuria, urinary frequency or hesitancy. He also denies related fever, chills, nausea or vomiting. In the ER he was diagnosed with PEDRO LUIS in the setting of CKD; stage IV with Hyperkalemia complicated by hypertensive urgency and he was then admitted to the PCU for ongoing care for a stay that is expectedto be greater than 48 hours. [facility] Medical History Arthritis Asthma Carpal tunnel syndrome Depressive disorder Fatty liver Former smoker GERD (gastroesophageal reflux disease) Hepatitis C High cholesterol History of alcohol abuse History of colon cancer History of echocardiogram History of edema History of pain when walking History of stress test Hx of vertigo Leg cramps Obesity Pancreatitis portacath placement Restless legs Seizure disorder Sezary disease Syncope Therapeutic drug monitoring Trigeminal nerve disorder Wears glasses Home Medications cholecalciferol (vitamin D3) 25 mcg (1,000 unit) capsule 1,000 unit PO DAILY supplement 10/10/13 [History Last Taken 11/13/15] sertraline 100 mg tablet 100 mg PO DAILY depression 07/18/14 [History Last Taken 11/13/15] multivitamin with folic acid 400 mcg tablet 1 tab PO DAILY supplement 10/21/14 [History Last Taken 11/13/15] rosuvastatin 40 mg tablet 40 mg PO DAILY cholesterol 11/24/16 [History Last Taken Unknown] fish oil-dha-epa 1,200 mg-144 mg-216 mg capsule 1 each PO DAILY supplement 11/14/20 [History Last Taken Unknown] lisinopril 40 mg tablet 40 mg PO QHS blood pressure 05/20/21 [History Last Taken 08/02/23] insulin glargine 100 unit/mL (3 mL) subcutaneous pen (Basaglar KwikPen U-100 Insulin) 25 unit subcut .QAM & HS diabetes 02/03/23 [History Last Taken Unknown] insulin lispro 100 unit/mL subcutaneous pen (Admelog SoloStar U-100 Insulin lispro) 30 unit subcut TID blood glucose 02/03/23 [History Last Taken Unknown] furosemide 20 mg tablet 10 mg PO Q12H water pill 04/27/23 [History Last Taken Unknown] carbamazepine 200 mg tablet 600 mg (3 x 200 mg) PO BID #180 tabs 07/12/23 [Rx Last Taken Unknown] pantoprazole 20 mg tablet,delayed release 40 mg (2 x 20 mg) PO Q12H #60 tabs 08/02/23 [Rx Last Taken Unknown] albuterol sulfate 90 mcg/actuation aerosol inhaler (Ventolin HFA) 1 - 2 puff inhalation Q4H PRN PRN Wheezing #1 inh 10/16/23 [Rx Last Taken Unknown] lisinopril 10 mg tablet 10 mg PO .QAM blood pressure 12/07/23 [History Last Taken Unknown] nadolol 20 mg tablet 40 mg PO .bid blood pressure 12/07/23 [History Last Taken Unknown] nadolol 40 mg tablet 40 mg PO BID blood pressure 12/07/23 [History Last Taken Unknown] gemfibrozil 600 mg tablet 600 mg PO BID pancreatitis prevention 12/08/23 [History Last Taken 12/07/23 10:00] Allergy/AdvReac Type Severity Reaction Status Date / Time doxazosin [From Cardura] Allergy Severe Bleeding Verified 12/07/23 18:41 erythromycin base Allergy Severe Hives Verified 12/07/23 18:41 loratadine [From Claritin] Allergy Severe Rash Verified 12/07/23 18:41 Family History Grandmother Cervical cancer Diabetes Hypertension Trigeminal neuralgia Mother Uterine cancer Arthritis Diabetes Hypertension Grandfather Heart disease Arthritis Diabetes Hypertension Unknown Diabetes Arthritis Father Arthritis Diabetes Hypertension Sister Diabetes Hypertension Uncle CVA (cerebral vascular accident) Aunt Cerebral aneurysm Surgical History H/O left hemicolectomy Hx of appendectomy Social History Smoking Status: Former smoker Tobacco: How many years used: 20 how long ago did patient quit smoking: quit 2003 second hand exposure: No alcohol intake: former details: quit 2003 substance use type: former substance user Date of last use: Used Marijuana since he was a teenager ROS ROS Narrative Review of systems: General: Patient denies fevers or chills. HENT: Denies headache, denies stuffy nose, denies sore throat EYES: Denies changes in vision or discharge from eyes. Resp: Denies cough, denies shortness of breath Cardiac: Denies chest pain, palpitations or heart racing. GI: Denies abdominal pain, denies changes in bowel, patient denies nausea or vomiting. : Denies changes in urination Extremity: Denies swelling Musculoskeletal: Patient denies arthralgias or myalgias. Neuro: Patient admits to headache corresponding with elevated blood pressure made worse with standing and better lying down as per HPI. He denies focal neurologic weakness or paresthesias. Heme: Denies any bleeding or bruising Skin: Denies rashes Psychiatric: No complaints voiced related to uncontrolled depression or anxiety. Endocrine: No polyuria, polydipsia or polyphagia The rest of the 14 point ROS was negative except for positives in HPI. Vital Signs Vital Signs Vital Signs: 12/07/23 18:39 12/07/23 18:39 12/07/23 19:08 Temperature 96.9 F L 96.9 F L Temperature Source Temporal Temporal Pulse Rate 77 77 Respiratory Rate 16 16 Respiratory Pattern Normal Blood Pressure 143/78 H 143/78 H Blood Pressure Mean 99 99 Pulse Ox 100 100 Oxygen Delivery Method Room Air Room Air Weight Weight: 205 lb 4.8 oz Body Mass Index (BMI) 31.1 Physical Exam Const alert, oriented x3, no apparent distress, average body habitus and healthy appearing General Appearance: cooperative HEENT normocephalic, head/scalp atraumatic, hearing grossly normal bilaterally and moist oral mucous membranes Eyes PERRL and EOMs intact bilaterally Neck no lymphadenopathy and supple Resp normal respiratory effort, no retractions, no use of accessory muscles and clearto auscultation bilaterally Cardio regular rate and regular rhythm Cardio Narrative: Port present on Left upper chest. GI normal to inspection, nondistended, normoactive bowel sounds, soft to palpation,non-tender and non-distended Extremity normal to inspection and full ROM Skin Skin Narrative: Negative for rash or jaundice. Neuro oriented x3, CN's II-XII intact bilaterally, moves all extremities and no focal motor deficits Sensorium / Orientation: awake, alert, oriented to person, oriented to place andoriented to time Speech: speech normal Psych affect normal Results Medical Records Data Attestation: I reviewed the patient's medical records Lab / Micro Data Attestation: I reviewed the patient's lab results. 12/07/23 19:02 12/07/23 19:02 Labs: Laboratory Results - last 24 hr 12/07/23 19:02: WBC 5.3, RBC 2.82 L, Hgb 8.6 L, Hct 25.2 L, MCV 89.4, MCH 30.5, MCHC 34.1, RDW Std Deviation 43.9, RDW Coeff of Ever 13.5, Plt Count 202, MPV 10.5, Immature Gran % (Auto) 0.600, Neut % (Auto) 61.2, Lymph % (Auto) 31.0, [place] % (Auto) 5.3, Eos % (Auto) 1.3, Baso % (Auto) 0.6, Absolute Neuts (auto) 3.2, Absolute Lymphs (auto) 1.63, Nucleated RBC % 0, Sodium 136, Potassium 4.7, Chloride 113 H, Carbon Dioxide 20.0 L, Anion Gap 3 L, BUN 39 H, Creatinine 4.39 H, Estim Creat Clear Calc 21.05, Est GFR (MDRD) Af Amer 18 L, Est GFR (MDRD) Non-Af 15 L, BUN/Creatinine Ratio 8.9 L, Glucose 186 H, Calcium 7.7 L Assessment & Plan Assessment/Plan (1) Acute kidney injury: (2) Chronic kidney disease, stage IV (severe): (3) Hypertensive urgency: PLAN: Plan 1. PEDRO LUIS in the setting of CKD; stage IV with Hyperkalemia followed by Dr. Ward the nephrology service - Admit to PCU. Give normal saline IV fluid and hold Lasix, lisinopril and other potentially nephrotoxic agents. Check renal ultrasound in a.m. to evaluate for evidence of obstruction. Finally, we will consult Dr. Rm of the nephrology service sees patient on rounds in the a.m. further recommendations with help appreciated in advance. 2. Hypertensive urgency; with blood pressure of 200/100 mmHg present on admission in spite of being on on Lasix, lisinopril and nadolol with suspected Adverse Drug Reaction to ANNA and Lasix causing #1 - Avoid potentially nephrotoxic agents. Give IV hydralazine for systolic blood pressure greater than 160 mmHg. 3. Hyperlipidemia - Resume statin. 4. Obesity; with BMI of 31.2 this admission - Weight loss will be recommended. Check TSH in light of obesity and #2. 5. Diabetes mellitus type 1.5; of unknown control after severe bout of pancreatitis - Stable. ADA/renal diet. FSBS q. AC/HS plus SSI. Check HgbA1c to objectively evaluate quality of diabetic control in light of #1. 6. History of colon cancer; status post Left hemicolectomy (2013) with chronic port in left upper chest in place - Noted. 7. Seizure disorder; on carbamazepine - Resume carbamazepine as previous. GiveIV Ativan as needed for breakthrough seizure activity. 8. Sezary disease - Noted. 9. History of tobacco abuse (quit ~20 years ago) - Noted. 10. History of alcohol abuse - Noted. 11. Fatty liver disease - Stable. 12. Chronic hepatitis C; with history of gastric and splenic varices without bleeding - Noted. 13. History of appendectomy - Noted. 14. Asthma - Stable with no evidence of flare. Continue as needed nebulizers. 15. Trigeminal neuralgia - Stable. 16. History of syncope - Noted. 17. History of vertigo - Stable. 18. Depression - Resume home regimen as previous. 19. Osteoarthritis - Give Tylenol as needed. 20. DVT prophylaxis - Heparin 5,000 units SQ 3 times daily. Total time: Approximately 55 minutes. Charges/Coding Visit Charges Inpatient E&M: 89548 Init Hosp L2 12/08/23 0611 <Electronically signed by Landry Barber DO> Cosigner Signature (if applicable): CC: Dr. Landry Barber DO; Luciana Garcia DO~ Signed [facility] Work Phone: 1(752) 812-159704-12-2024 Discharge summary Author Kirk Schneider [facility] December 08, 2023 1:32am Note Date/Time December 07, 2023 7:0 3pm [facility] Medical Records Department [address] [place] [id number] Emergency Department Summary 12/07/23 MR#: [id number] Acct: [id number] Name: REGINALDO HUFFMAN Rep #:[id number] : 1970 53 From: Fransisco VALENTINE PCP: Luciana Garcia DO Status:ADM I N Location: [place] [address] HPI <SERGE Salazar - Last Filed: 12/07/23 20:26> History of Present Illness Chief Complaint: Abn Labs Narrative Narrative: Patient is a 53-year-old male with history of colon cancer who has been cancer free since 2015, history of chronic kidney disease, trigeminal neuralgia depression type 2 diabetes hypertension who presents to the emergency departmentfor concern of his potassium. Patient does have significant kidney disease however is not on any dialysis. Patient potassium was 5.8 today and a basic blood draw and they referred him to the emergency department. Patient dates he overall feels generally well, he has no chest pain or shortness of breath. Patient states his sugars have been well-maintained. He is here for evaluation [facility] <SERGE Salazar - Last Filed: 12/07/23 20:26> [facility] Medical History Arthritis Asthma Carpal tunnel syndrome Depressive disorder Fatty liver Former smoker GERD (gastroesophageal reflux disease) Hepatitis C High cholesterol History of alcohol abuse History of colon cancer History of echocardiogram History of edema History of pain when walking History of stress test Hx of vertigo Leg cramps Obesity Pancreatitis portacath placement Restless legs Seizure disorder Sezary disease Syncope Therapeutic drug monitoring Trigeminal nerve disorder Wears glasses Home Medications cholecalciferol (vitamin D3) 25 mcg (1,000 unit) capsule 1,000 unit PO DAILY 10/10/13 [History Last Taken 11/13/15] sertraline 100 mg tablet 100 mg PO DAILY 07/18/14 [History Last Taken 11/13/15] multivitamin with folic acid 400 mcg tablet 1 tab PO DAILY 10/21/14 [History Last Taken 11/13/15] rosuvastatin 40 mg tablet 40 mg PO DAILY 11/24/16 [History Last Taken Unknown] fish oil-dha-epa 1,200 mg-144 mg-216 mg capsule 1 each PO DAILY 11/14/20 [History Last Taken Unknown] aripiprazole 2 mg tablet (Abilify) 2 mg PO DAILY 12/24/20 [History Last Taken Unknown] lisinopril 40 mg tablet 40 mg PO DAILY 05/20/21 [History Last Taken 08/02/23] insulin glargine 100 unit/mL (3 mL) subcutaneous pen (Basaglar KwikPen U-100 Insulin) 25 unit subcut .QAM & HS 02/03/23 [History Last Taken Unknown] insulin lispro 100 unit/mL subcutaneous pen (Admelog SoloStar U-100 Insulin lispro) 30 unit subcut TID 02/03/23 [History Last Taken Unknown] furosemide 20 mg tablet 20 mg PO DAILY 04/27/23 [History Last Taken Unknown] carbamazepine 200 mg tablet 600 mg (3 x 200 mg) PO BID #180 tabs 07/12/23 [Rx Last Taken Unknown] nadolol 20 mg tablet 20 mg PO .bid #60 tabs 08/02/23 [Rx Last Taken Unknown] pantoprazole 20 mg tablet,delayed release 40 mg (2 x 20 mg) PO Q12H #60 tabs 08/02/23 [Rx Last Taken Unknown] albuterol sulfate 90 mcg/actuation aerosol inhaler (Ventolin HFA) 1 - 2 puff inhalation Q4H PRN PRN Wheezing #1 inh 10/16/23 [Rx Last Taken Unknown] benzonatate 200 mg capsule 200 mg PO TID PRN cough #20 caps 10/16/23 [Rx Last Taken Unknown] Allergy/AdvReac Type Severity Reaction Status Date / Time doxazosin [From Cardura] Allergy Severe Bleeding Verified 12/07/23 18:41 erythromycin base Allergy Severe Hives Verified 12/07/23 18:41 loratadine [From Claritin] Allergy Severe Rash Verified 12/07/23 18:41 Family History Grandmother Cervical cancer Diabetes Hypertension Trigeminal neuralgia Mother Uterine cancer Arthritis Diabetes Hypertension Grandfather Heart disease Arthritis Diabetes Hypertension Unknown Diabetes Arthritis Father Arthritis Diabetes Hypertension Sister Diabetes Hypertension Uncle CVA (cerebral vascular accident) Aunt Cerebral aneurysm Surgical History H/O left hemicolectomy Hx of appendectomy Social History Smoking Status: Former smoker Tobacco: How many years used: 20 how long ago did patient quit smoking: quit 2003 second hand exposure: No alcohol intake: former details: quit 2003 substance use type: former substance user Date of last use: Used Marijuana since he was a teenager ROS <SERGE Salazar - Last Filed: 12/07/23 20:26> ROS ED ROS Narrative Constitutional: Negative for fever, chills, weight loss, weakness Eyes: Negative for vision loss, vision change, double vision ENT: Negative for any sore throat, ear pain, congestion Cardiovascular: Negative for any chest pain, tightness, palpitations Respiratory: Negative for any cough, sputum production, hemoptysis, dyspnea, dyspnea on exertion, orthopnea Gastrointestinal: Negative for any abdominal pain, nausea, vomiting, diarrhea, constipation, blood in stool, blood in vomit : Negative for any urinary frequency, dysuria, retention, blood in urine Muscle skeletal: Negative for any neck pain, back pain Neurological: Negative for any headache, syncope, dizziness Skin: Negative for any rashes, itching, abrasions, lacerations Psychiatric: Negative for any depression, anxiety, stress, suicidal ideation, homicidal ideation Hematologic: Negative for any excessive bruising, easy bleeding EXAM <SERGE Salazar - Last Filed: 12/07/23 20:26> Physical Exam Narrative Exam Narrative: Vital signs reviewed. HEET: Head normocephalic atraumatic, TMs clear bilaterally. Posterior pharynx is clear, moist mucous membranes. Nares clear bilaterally. Neck: Supple with no lymphadenopathy or tenderness. No signs of meningismus. Cardiac: Regular rate and rhythm no murmurs gallops or rubs, equal peripheral pulses bilaterally. Respiratory: Lungs clear to auscultation bilaterally. No chest tenderness. Abdomen: Soft, nontender, nondistended. No abdominal bruit or pulsatile masses. No hepatosplenomegaly Extremities: No peripheral edema, no signs of gross trauma or deformity. Activefull range of motion of all extremities. Neuro: Cranial nerves II through XII intact, no focal neurological deficits. Skin: Clean dry and intact with no rash, purpura, petechiae, vesicles or pustules. Backs/flank: No CVA tenderness, no midline spinal tenderness, no deformity. Psych: Normal mood and affect. No SI, HI or acute psychosis. Const Vital Signs: 12/07/23 18:39 12/07/23 18:39 12/07/23 19:08 Temperature 96.9 F L 96.9 F L Temperature Source Temporal Temporal Pulse Rate 77 77 Respiratory Rate 16 16 Respiratory Pattern Normal Blood Pressure 143/78 H 143/78 H Blood Pressure Mean 99 99 Pulse Ox 100 100 Oxygen Delivery Method Room Air Room Air <Dr. Kirk Schneider DO - Last Filed: 12/07/23 20:30> Physical Exam Const Vital Signs: 12/07/23 18:39 12/07/23 18:39 12/07/23 19:08 Temperature 96.9 F L 96.9 F L Temperature Source Temporal Temporal Pulse Rate 77 77 Respiratory Rate 16 16 Respiratory Pattern Normal Blood Pressure 143/78 H 143/78 H Blood Pressure Mean 99 99 Pulse Ox 100 100 Oxygen Delivery Method Room Air Room Air [facility] <SERGE Salazar - Last Filed: 12/07/23 20:26> [facility] Lab Data Labs: Laboratory Results - last 24 hr 12/07/23 19:02 WBC 5.3 RBC 2.82 L Hgb 8.6 L Hct 25.2 L MCV 89.4 MCH 30.5 MCHC 34.1 RDW Std Deviation 43.9 RDW Coeff of Ever 13.5 Plt Count 202 MPV 10.5 Immature Gran % (Auto) 0.600 Neut % (Auto) 61.2 Lymph % (Auto) 31.0 [place] % (Auto) 5.3 Eos % (Auto) 1.3 Baso % (Auto) 0.6 Absolute Neuts (auto) 3.2 Absolute Lymphs (auto) 1.63 Nucleated RBC % 0 Sodium 136 Potassium 4.7 Chloride 113 H Carbon Dioxide 20.0 L Anion Gap 3 L BUN 39 H Creatinine 4.39 H Estim Creat Clear Calc 21.05 Est GFR (MDRD) Af Amer 18 L Est GFR (MDRD) Non-Af 15 L BUN/Creatinine Ratio 8.9 L Glucose 186 H Calcium 7.7 L EKG Normal sinus rhythm: Attestation: I personally reviewed and interpreted this EKG as follows: Comments: Normal sinus rhythm, rate of 74 bpm, UT interval 154 ms, QRS duration 96 ms, no acute ST elevation, no acute infarct noted. Treatment and Re-Evaluation :: Differential diagnosis includes however is not limited to: Acute on chronic kidney injury, hyperkalemia, lab mistake, Patient appears to be in no obvious respiratory distress vital signs are stable. Patient presents to the emergency department for concerns of elevated potassium. Patient will receive repeat laboratory values to ensure that the labvalue was correct. Patient has no chest pain or shortness of breath, EKG will be obtained. EKG was unremarkable. No peaked T waves. Patient's laboratory values showed a chronic anemia with a hemoglobin of 8.6, patient's chemistries show a normal potassium at 4.7, it is possible that the lab draw prior was hemolyzed. Howeverpatient's creatinine is 4.39, patient's baseline is usually 2.5-2.9, patient hasbeen having an increase in his creatinine over the last several months. I do believe the patient needs to be admitted to the hospital. Glucose 186. GFR 15. I will speak to the hospitalist. Patient stable for admission. <Dr. Kirk Schneider, DO - Last Filed: 12/07/23 20:30> [facility] Narrative Medical decision making narrative: I have personally performed a face to face assessment of the patient and have reviewed the MIN Note. I performed a substantive portion of the visit including all aspects of the following. My ryan findings include: History: Patient presents with hypokalemia that was noticed today. Patient had outpatient labs which noted a potassium of 5.2. Patient was told to come to theemergency department. Patient states that his kidney function tests have been increasingly getting worse. Patient denies any chest pain or shortness of breath. Patient denies any nausea or vomiting. Patient denies any fevers or chills. Exam: Vital signs are stable. Patient is afebrile. Patient is in no acute distress. Oral mucosa is pink and moist. Neck is supple. Trachea is midline. There is no JVD. Heart was regular rate and rhythm. Lungs are clear and equal bilaterally. Abdomen is soft. Bowel sounds are normal. There is no tenderness. Cranial nerves II through XII are intact. There are no focal motoror sensory deficits noted. Medical Decision Making: Differential diagnosis includes acute kidney injury, electrolyte abnormality, dehydration, and anemia. CBC will be obtained to assess for leukocytosis and anemia. Basic metabolic profile will be obtained toassess for electrolyte abnormality and renal function. CBC was reviewed. There is a mild anemia with a hemoglobin of 8.6 and hematocrit 25.2. Basic metabolic profile was reviewed. CO2 was slightly low at20. BUN was 39 and creatinine was 4.39. These are increased from previous results. Patient was advised of his findings. I recommended admission to the hospital for acute kidney injury. Patient is agreeable with this. All questions were answered. Lab Data Labs: Laboratory Results - last 24 hr 12/07/23 19:02 WBC 5.3 RBC 2.82 L Hgb 8.6 L Hct 25.2 L MCV 89.4 MCH 30.5 MCHC 34.1 RDW Std Deviation 43.9 RDW Coeff of Ever 13.5 Plt Count 202 MPV 10.5 Immature Gran % (Auto) 0.600 Neut % (Auto) 61.2 Lymph % (Auto) 31.0 [place] % (Auto) 5.3 Eos % (Auto) 1.3 Baso % (Auto) 0.6 Absolute Neuts (auto) 3.2 Absolute Lymphs (auto) 1.63 Nucleated RBC % 0 Sodium 136 Potassium 4.7 Chloride 113 H Carbon Dioxide 20.0 L Anion Gap 3 L BUN 39 H Creatinine 4.39 H Estim Creat Clear Calc 21.05 Est GFR (MDRD) Af Amer 18 L Est GFR (MDRD) Non-Af 15 L BUN/Creatinine Ratio 8.9 L Glucose 186 H Calcium 7.7 L Discharge Plan Dx/Rx/DC Orders Clinical Impression: Acute kidney injury, Anemia in chronic illness Disposition Disposition: Acute Care Hospital [facility] What to do if you have Problems For any increased pain, shortness of breath, bleeding, nausea or vomiting, chestpain, or any unexpected problems, contact your Primary Care Provider. Call [facility] ([phone]) or report to the closest Emergency Room. Call 911 if necessary. 12/07/232025 <Electronically signed by Fransisco VALENTINE> Cosigner Signature (if applicable): 12/08/23131 <Electronically signed by Kirk Schneider DO> CC: Luciana Garcia, ~ Signed [facility] Work Phone: 1([phone]) 321-413512-06-2023 History and physical note Author Aquiles Warren [facility] August 02, 2023 6:27am Note Date/Time August 02, 2023 6 :27am [facility] Medical Records Department [address] [place] [address] History & Physical Exam 08/02/23625 MR#: [id number] Acct: [id number] Name: REGINALDO HUFFMAN Rep #:[id number] : 1970 52 From: Aquiles Warren DO PCP: Luciana Garcia DO Status:REG S DC Location: [place] [address] History and Physical Date of Admission: 08/02/23 REGINALDO HUFFMAN, is a 52 M who presents to the office today for Prior imaging: ? CT abd/pel 9..19 stable hepatosplenomegaly; LUQ varices; renal cysts; postsurgical changes of right hemicolectomy. ? CT abd/pel 3. normal liver, gallbladder; mild splenomegaly with adjacent calcified structure, ?prior inflammation; LUQ varicosities stable,r/t splenic vein thrombosis, stable. *[facility] hospitalization 3.-4..23. ED presentation for syncopal event lasting 5 minutes with preceding nausea and dizziness. Workup concerning for anemia (hgb6.3), dizziness when attempting orthostatic BP. 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 ? Biochemical hgb trended upward, plt between 154-131 TIBC, transferrin, ferritin, LFT low to normal, ceruloplasmin, cortisol, AMA, ASM, hepatitis without pertinent abnormality. iron L60, protein/albumin low, TSH L 0.35, T4 L 0.57, T3 L1.9, copper H133 ? EGD 11.24.22 irregular ZLine 37cm; submucosal esophageal lesion; IGV1 in the cardia; bleeding AVM of gastric body, heater probe. ? US RUQ 11.25.22 hepatomegaly 19.2cm with heterogeneous echogenicity ? MRI abd 11.25.22 cholelithiasis; splenomegaly. OV 12.15.22 Refer for EUS for submucosal lesion of esophagus; declines colonoscopy; continue atenolol. [facility] hematology for anemia with CKD, colon cancer history and HTN. Continue retacrit and PO iron ? Biochemical CEA 1.5 OV 07.25.23 diet includes a lot of carbohydrates, fried foods, processed meats, sugars. With this diet he is having a lot of frequent loose stools. ROS Const Constitutional: Positive for fatigue and headache(s) ENT ENT: Positive for headache(s); No difficulty swallowing Gastro GI: Positive for bloating, change in bowel habits, diarrhea, heartburn and excessive flatus; No abdominal pain, belching, change in stool character, coffee ground emesis, constipation, cramping, difficulty swallowing, feeling full early, incontinent of stools, Vomiting blood/hematemesis, Blood in stool, loose stools, Black,tarrystools, nausea/dyspepsia, pain with swallowing, vomiting or other Musc Musculoskeletal: Positive for joint swelling, sciatica and restless legs; No joint pain Skin Skin: No yellowing of the eye or itchy eyes Neuro Neurology: Positive for headache(s), restless legs and seizures Psych Psychiatric: Positive for anxiety and Positive for depression Endo Endocrine: Positive for fatigue Aller/Imm Allergy/Immunologic: No itchy eyes Francesco/Lymp Hematologic/Lymphatic: No easy bleeding or easy bruising Exam Const General: cooperative, healthy appearing, comfortable and no acute distress Nutritional Appearance: obese Orientation: alert, awake and oriented x3 HENMT Head: normal to inspection Ears: hearing grossly normal bilaterally Nose: external nose normal Face and sinus: normal facial exam Eyes General: appearance normal, both eyes and all related structures Alignment and Position: alignment normal Sclera: sclerae normal Neck Neck: normal visual inspection Carotids: normal carotid upstroke Chest Chest palpation & inspection: normal inspection of the chest Resp Effort & Inspection: normal respiratory effort, able to speak in complete sentences, symmetric chest movement, normal respiratory pattern, no audible wheezes and no cough Auscultation: Bilateral: Clear to Auscultation Cardio Rate: regular rate Heart Sounds: S1 normal and S2 normal Bruits: no carotid bruits GI Inspection: normal to inspection and obesity Musc Cervical Spine: normal cervical lordosis Thoracic/Lumbar Spine: thoracic and lumbar spine normal to inspection Skin General: no rashes or lesions noted Lesions: no lesions Rashes: no rashes Trauma: no lacerations or abrasions Wounds: no wounds Neuro General: patient alert, patient awake and patient oriented x3 Cognition: normal cognition Speech: speech normal Gait: normal gait Extrem General: normal to inspection and no pedal edema Other: pedal pulses 2+ bilat Psych Appearance: grossly normal Mental Status: mental status grossly normal Mood: congruent mood Affect: normal affect Speech and Movement: speech and movement normal Attitude: cooperative Thought Process: normal Thought Content: normal Judgment: judgment good Quality Reporting Tobacco Screening ([facility] 138) Smoking Status: Former smoker Assessment and Plan Assessment and Plan (1) Gastric varices without bleeding: Status: Chronic Plan: Gastric varices without clear signs or symptoms of 3 portal hypertension for hypertension all post portal hypertension. He also has some mild splenomegaly. There was no clot seen in the portal or hepatic vein. He did have gastric varices that were seen and there were no other clot seen in the circulatory system involving the abdomen. He would likely need to get liver biopsy and or TIPS procedure. We will repeat his upper endoscopy to see how his gastric varices are doing. (2) Anemia in chronic kidney disease: Status: Chronic Qualifiers: Chronic kidney disease stage: unspecified stage Qualified Code(s): N18.9 - Chronic kidney disease, unspecified; D63.1 - Anemia in chronic kidney disease Plan: Anemia seems to be relatively stable at 9.8 since being in the hospital. (3) Loose stools: Status: Chronic (4) Subepithelial esophageal lesion: Status: Chronic (5) History of colon cancer: Status: Chronic Comment: No clinical evidence of disease. CEA 1.4 on 03/16/2023 Orders: I have examined the patient and the H&P has been reviewed. There are no clinicalchanges since date of exam. 08/02/23626 <Electronically signed by Aquiles Warren DO> Cosigner Signature (if applicable): CC: Luciana Garcia DO; Aquiles Warren DO~ Signed [facility] Work Phone: 1(551) 297-905912-06-2023 Procedure [facility] 08-02-2023 Procedure [facility]10-27-2023 History of Present illness Narrative* Candy Penn APRN.COMM[employer]CIAL C[employer]US TAKER - 06/23/2023 3:15 PM EDT Reason for Consultation: DM Type [...] to start care with Dr. Griffin with [place] being closer to his home. Has an appt set for next month Also reports he will start with a new primary care provider He is seeing nephrology in [place] ([facility] Under the care of hem/onc for colon [...] been taking since. HLD: Managed per Dr. 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 30 tablet 5 omega 7-opq-shn-fish oil 300-400-1,000 mg cap Take 1 capsule [...] FOR INSULIN INJECTIONS 800 Each 0 Insulin [place]icho, Disposable, (PEN NEEDLES) 31 gauge x 1/4 ndle Use 4 pen needles daily 400 Each 0 No current facility-administered medications for this visit. REVIEW OF SYSTEMS Review of Systems Constitutional: Positive for fatigue. Respiratory: Negative for difficulty breathing. Cardiovascular: Negative for chest pain. Gastrointestinal: Negative for nausea, vomiting, diarrhea and constipation. PHYSICAL EXAMINATION BP 162/88 Pulse 71 Ht 172.7 cm (5' 8) Wt 97.5 kg (214 lb 15.2 oz) [...] LITE STRIPS) test strip, alcohol swabs, Insulin Jericho, Disposable, (PEN NEEDLES) 31 gauge x 1/4 [...] Type 1 diabetes mellitus with diabetic polyneuropathy ([facility]) Comment: Glycemic control is above goal. He blood glucose is variable but tends to run consistentlyhigh before bedtime however reports missing doses prior to that. He declines CGM. Neuropathy is monitored and stable. Plan: HEMOGLOBIN A1C (POC), insulin glargine (LANTUS SOLOSTAR U-100 INSULIN) 100 unit/mL (3 mL), insulin lispro (ADMELOG SOLOSTAR U-100 INSULIN) 100 unit/mL, blood sugar diagnostic (FREESTYLE LITE STRIPS) test strip, alcohol swabs, Insulin Jericho, Disposable, (PEN NEEDLES) 31 gauge x 1/4 [...] unspecified whether stage 3a or 3b CKD ([facility]) Comment: Glycemic control is above goal. He blood glucose is variable but tends to run consistentlyhigh before bedtime however reports missing doses prior to that. He declines CGM. 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 He blood glucose is variable but tends to run consistentlyhigh before bedtime however reports missing doses prior to that. He declines CGM. Retinopathy monitored and managed per retinal specialist/ophthalmology Plan: HEMOGLOBIN A1C (POC), insulin glargine (LANTUS SOLOSTAR U-100 INSULIN) 100 unit/mL (3 mL), insulin lispro (ADMELOG SOLOSTAR U-100 INSULIN) 100 unit/mL, blood sugar diagnostic (FREESTYLE LITE STRIPS) test strip, alcohol swabs, Insulin Jericho, Disposable, (PEN NEEDLES) 31 gauge x 1/4 [...] 2020. (E78.2) Mixed hyperlipidemia Comment/Plan:Managed per Dr. Cruz. taking gemfibrozil (I10) Essential hypertension Comment/Plan: Elevated today. Check blood pressure at home and follow up with Dr. Cruz or nephrology (E66.9) Obesity, Class I, BMI 30-34.9 Comment: Body mass index is 32.68 kg/m . Plan: Encouraged increase dietary and exercise efforts as able Medical Decision Making: Level: 4 - Moderate Candy Penn, MSN, LOCKET MAKER, PASSENGER SERVICE REPRESENTATIVE-C, CDE Endocrinology [facility]/[address], [facility] [address] [place] [address] Fax: documented [facility]Tr[facility]10-27-[facility]23 Evaluation note* Diagnosis Type 1 diabetes mellitus with stage 3 chronic kidney disease, unspecified whether stage 3a or 3b CKD (HCC) 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, not stated as uncontrolled Hypogonadism in male Mixed hyperlipidemia Essential hypertension Unspecified essential hypertension Obesity, Class I, BMI 30-34.9 Obesity, unspecified documented in this encounter [facility]10-02-2023 Miscellaneous Notes* Telephone Encounter - Cathi Campbell - 05/29/2023 12:30 PM EDT Patient has been identified by name and date of : Yes, Provider Trevin Date 05-29-2023 Time 12:33 pm Last office [...] and advise. Cathi Campbell documented in this encounterTr[facility] System06-15-2023 Miscellaneous Notes* Telephone Encounter - Candy Penn APRN.CNP - 02/09/2023 12:30 PM EDT Reviewed. Mild NPDR , no mac edema bilaterally * Telephone Encounter - Nicole Cerda MA - 02/09/2023 8:39 AM EDT Received Eye Exam Report from [facility]. Placed in provider's inbox for review. Route to [place] for scanning. documented in this encounterTrinity Health System06-07-2023 History of Present illness Narrative* Chriss Cruz MD - 02/01/2023 10:26 AM EDT Patient [...] placed. Patient declined to schedule. He states [employer] has similar program he uses. Due for [...] by mouth at bedtime as needed. Insulin Jericho, Disposable, (PEN NEEDLES) 31 gauge x 08/31 [...] to 5 tabs a day prn. omega 2-xrn-ubm-fish oil 300-400-1,000 mg cap Take 1 capsule [...] episode, unspecified [facility] Microalbuminuria on anna Mixed hyperlipidemia Seizure disorder (HCC) Negative EEG [...] 164/82 Pulse 68 Ht 172.7 cm (5' 8) Wt 96.2 kg (212 lb) SpO2 97% [...] - Uncontrolled - as above. Follow closely. Chriss Cruz documented in this encounterTrinity [facility] System05-04-2023 History of Present illness Narrative* Chriss Cruz MD - 12/29/2022 9:36 AM EDT Patient presents with: Follow Up HPI: Patient presents today for office visit for follow up. Was admitted into [facility] 11/26-11/28 Anemia and syncope Feeling pretty [...] Dr. Warren and set him up with lele Hernandez in [place], although he already sees Lele in the clinic. He feels well. No [...] Abs Lymph 1.00 - 4.00 k/uL 1.57 [place]% % 7.1 Abs [place] <0.87 k/uL 0.39 Eosin% % 1.3 Abs [...] by mouth at bedtime as needed. Insulin Jericho, Disposable, (PEN NEEDLES) 31 gauge x 1/4 [...] to 5 tabs a day prn. omega 4-xej-jdo-fish oil 300-400-1,000 mg cap Take 1 capsule [...] episode, unspecified [facility] Microalbuminuria on anna Mixed hyperlipidemia Seizure disorder (HCC) Negative EEG Trigeminal neuralgia Type 1 diabetes mellitus ([facility]) [address] Dr Zepeda. from pancreatitis. Villous adenoma [...] 170/90 Pulse 76 Ht 172.7 cm (5' 8) Wt 97.5 kg (215 lb) SpO2 99% [...] recheck bmp - DOXAZOSIN 1 MG TABLET Chriss Cruz MD documented in this encounterTr[facility] System04-14-2023 Miscellaneous Notes* Telephone Encounter - Linda Baxter Ma - 12/09/2022 9:14 AM EDT Patient was made aware of the results. Patient verbalizes understanding. Linda Baxter Ma * Telephone Encounter - Chriss Cruz MD - 12/09/2022 8:00 AM EDT Labs are showing anemia is stable. Kidney functions remains down. Make sure keeps continuing to follow with nephrology. documented in this encounterTrinity Health System04-07-2023 Miscellaneous Notes* Telephone Encounter - Sarah Howard LPN - 12/02/2022 9:47 AM EDT Patient notified and verbalizes understanding. * Telephone Encounter - Chriss Cruz MD - 12/02/2022 9:39 AM EDT His repeat thyroid looks better. Keep his follow up with lele. His kidney function is worse than it was before. His anemia is stable. Recheck bmp in one week along with cbc documented in this encounterTrinity Health System04-07-2023 Evaluation note* Diagnosis Gastrointestinal hemorrhage, unspecified gastrointestinal hemorrhage type- Primary Stage 3a chronic kidney disease (HCC) documented in this encounter [facility] History of Present illness Narrative* Chriss Cruz MD - 12/01/2022 10:31 AM EDT Patient presents with: Transition Of Care Hospital F/U: Patient reports he will be getting hemoglobin injection every Monday until otherwisedecided. HPI: Patient presents today for office visit for TCM TCM call on 11/28 Admitted to [facility] 11/26-11/28/22. DX: anemia, syncope. Was brought to [...] Dr. Warren and set him up with lele Hernandez in [place], although he already sees Lele in the clinic. He feels well. No [...] Inject 40 Units subcutaneously twice daily.) Insulin Jericho, Disposable, (PEN NEEDLES) 31 gauge x 1/4 [...] (Patient not taking: Reported on 12/01/2022) omega 4-vyr-suq-fish oil 300-400-1,000 mg cap Take 1 capsule [...] episode, unspecified [facility] Microalbuminuria on anna Mixed hyperlipidemia Seizure disorder (HCC) Negative EEG [...] 280.0, ICD10: D50.0 - CBC + DIFF Chriss Cruz MD documented in this encounterTrinity Health System04-03-2023 History of Present illness Narrative* Lady Cruz - 11/28/2022 9:55 AM EDT TRANSITION CARE MANAGEMENT (TCM) INITIAL CONTACT [employer] Outreach Provider Action/FYI: Initial contact with patient post discharge, spoke to patient. Patient identified by name and . TRANSITION CARE MANAGEMENT INITIAL OUTREACH DOCUMENTATION: Date of Outreach: 11/28/2022 Date of Discharge 11/26/2022 Some recent data might be hidden SUMMARY: -Pt discharged from [facility] on 11/26/22. -Admitted for: Syncope Do you have a hospital follow up appointment with your PCP? Appointment on 12/01/[address] Cruz. Yes. Remind patient of appointment date, time, [...] for provider to review documented in this encounterTrinity Health System04-01-[address] Renae [facility] November 26, 2022 1:45pm Note Date/Time November 26, 2022 1:45 pm [facility] Medical Records Department [address] [place] [address] Instructions for Home/Discharge Instructions 11/26/22 1344 MR#: [id number] Acct: [id number] Name: REGINALDO HUFFMAN Rep #:[id number] : 1970 52 From: Maria Antonia Renae MD PCP: Dr. Chriss Cruz MD Status:ADM I N Discharge Instructions Diet Discharge Diet: 1800 Calorie Control Diet Activity Discharge Activity: - (When laying down please sit on side of the bed for several minutes prior to standing up and once you stand up please verify no dizziness prior to ambulating) Follow Up Care Test Results: Test results from this visit will be discussed in further detail at your follow- up appointment, if applicable. Discharge Plan Admission Admit Date/Time: 11/23/22 12:55 Primary Reason for Your Visit: Syncope Attending Provider: Maria Antonia Renae Primary Care Provider: Chriss Cruz Instructions Patient Instructions: ED Hypotension, Orthostatic Additional Instructions / Restrictions: DISCHARGE INSTRUCTIONS PLEASE READ *Please take this with you to your next doctors appointment* -You will need to follow-up with Dr. Warren with GI in his office upon discharge. Please call his office to schedule your hospital follow-up appointment (ph. [phone]) -It is advised that you follow-up with endocrinology upon discharge to further evaluate your thyroid, contact information below. Please call on Monday to schedule an appointment. -Recommend that you wear compression stockings daily and after laying down for period of time and use it up to sit on the side of the bed for several minutes prior to standing. Then you should stand to verify no lightheaded or dizziness prior to ambulating. Also recommend discussing this with your primary care physician upon discharge in the event there is any additional work-up they recommend -You have multiple lab values pending. You can follow-up with your primary carephysician to further review results once available. The [place] patient portal will also have your lab results as they become available, would recommend signing up for this and utilizing this as it will be helpful at follow-up appointments if you are primary care physician does not have access to the [facility] medical record. -Would recommend stopping your doxazosin as this can worsen orthostatic hypotension and dizziness and increase your chances of having another episode ofpassing out. -You were somewhat dehydrated when you came in and your water pill was held. Would recommend continue to hold this until a follow-up with your prescribing physician for further instructions. But advised to weigh yourself daily if you gain more than 1 pound in a day or 5 pounds in a week please contact your primary care physician. -Continue your other home medications -Please call your primary care provider's office upon discharge to schedule a hospital follow up within 1 week. -For any concerning signs or symptoms please call 911 or proceed to the nearest emergency department Discharge Orders/Prescriptions Prescriptions: Continued lisinopril 40 mg tablet 40 mg PO DAILY Basaglar KwikPen U-100 Insulin 100 unit/mL (3 mL) insulin pen 45 unit subcut .QAM & HS insulin lispro [Admelog SoloStar U-100 Insulin] 100 unit/mL insulin pen 36 unit subcut .QID Rx Instructions: 18 units @AM,Lunch, Dinner, and HS with sliding scale. omeprazole 20 mg capsule,delayed release(DR/EC) 20 mg PO DAILY Label Comments: take 1 capsule by mouth once daily 1/2 HOUR BEFORE BREAKFAST carbamazepine 200 mg tablet 600 mg PO BID Qty: 540 2RF cholecalciferol (vitamin D3) 1,000 UNIT capsule 1,000 unit PO DAILY Label Comments: VITAMIN atenolol 50 mg tablet 50 mg PO BID Label Comments: BLOOD PRESURE sertraline 100 MG tablet 100 mg PO DAILY multivitamin with folic acid 1 TABLET tablet 1 tab PO DAILY fish oil-dha-epa 1 EACH capsule 1 each PO DAILY aripiprazole [Abilify] 2 mg tablet 2 mg PO DAILY Label Comments: take 2 tablets by mouth once daily meclizine 25 mg tablet 25 mg PO TID PRN (Reason: dizziness) Qty: 30 0RF cyanocobalamin (vitamin B-12) 500 MCG tablet 500 mcg PO DAILY@0800 rosuvastatin 40 MG tablet 40 mg PO DAILY Discontinued doxazosin 4 mg tablet 4 mg PO DAILY Label Comments: take 1 tablet by mouth once daily furosemide 20 mg tablet 20 mg PO DAILY Referrals / Follow Up: Aquiles Warren DO [Med Staff - Active Staff] - See Referral Note (You will needto follow-up with Dr. Warren with GI in his office upon discharge. Please call his office to schedule your hospital follow-up appointment (ph. [phone])) Chandana Griffin MD [Med Staff - Courtesy Staff] - See Referral Note (Please call to establish care with endocrinology upon discharge for further work-up) Chriss Cruz MD [Primary Care Provider] - Within 1 Week Disposition Disposition (needs filled in before D/C Order can be placed): Home, Self Care 11/26/225<Electronically signed by Maria Antonia Renae MD>Maria Antonia Renae MD CC: Dr. Chriss Cruz MD ~ Signed [facility] Work Phone: 1(575) 390-866904-01-[address] Renae [facility] November 26, 2022 4:09pm Note Date/Time November 26, 2022 1:45 pm [facility] Medical Records Department [address] [place] [address] Discharge Summary 11/26/22 1345 MR#: [id number] Acct: [id number] Name: REGINALDO HUFFMAN Rep #:[id number] : 1970 52 From: Maria Antonia Renae MD PCP: Dr. Chriss Cruz MD Status:ADM I N Location: [address] Providers Date of Admission: 11/23/22 Date of Discharge: 11/26/22 Primary Care Physician: Dr. Chriss Cruz MD Consultations 11/23/22 18:11 Consult: Gastroenterology Routine Consulting Provider: [facility] Reason for Consult: GI bleed EMERGENT Consult: No MD Notified: Yes Date Notified: 11/23/22 Time Notified: 18:11 Method of Notification: Text Reason For Visit: ANEMIA, SYNCOPE Diagnosis Discharge Diagnosis (1) Varices of esophagus determined by endoscopy: Status: Acute Code(s): I85.00 - Esophageal varices without bleeding (2) Anemia: Status: Acute Code(s): D64.9 - Anemia, unspecified Plan #Sycnopal episode 2/2 positive orthostatic blood pressure 2/2 dehydration and acute on chronic anemia 2/2 upper GI bleeding dysplastic lesion #Grade 1 esophageal varices #Acute on Chronic Anemia/history of colon cancer status postresection and chemoradiation in 2013 #DMII #CKD stage IIIb #Depression Medications at Discharge Home Medications cholecalciferol (vitamin D3) 25 mcg (1,000 unit) capsule 1,000 unit PO DAILY 10/10/13 sertraline 100 mg tablet 100 mg PO DAILY 07/18/14 multivitamin with folic acid 400 mcg tablet 1 tab PO DAILY 10/21/14 cyanocobalamin (vitamin B-12) 500 mcg tablet 500 mcg PO DAILY@0800 11/24/16 rosuvastatin 40 mg tablet 40 mg PO DAILY 11/24/16 atenolol 50 mg tablet 50 mg PO BID 02/14/18 fish oil-dha-epa 1,200 mg-144 mg-216 mg capsule 1 each PO DAILY 11/14/20 aripiprazole 2 mg tablet (Abilify) 2 mg PO DAILY 12/24/20 insulin glargine 100 unit/mL (3 mL) subcutaneous pen (Basaglar KwikPen U-100 Insulin) 45 unit subcut .QAM & HS 05/20/21 insulin lispro 100 unit/mL subcutaneous pen (Admelog SoloStar U-100 Insulin lispro) 36 unit subcut .QID 05/20/21 lisinopril 40 mg tablet 40 mg PO DAILY 05/20/21 omeprazole 20 mg capsule,delayed release 20 mg PO DAILY 08/10/21 meclizine 25 mg tablet 25 mg PO TID PRN dizziness #30 tabs 02/13/22 carbamazepine 200 mg tablet 600 mg PO BID #540 tabs 11/02/22 Hospital Course Procedures - (EEG, MRI brain, MRI abdomen, right upper quadrant ultrasound, echocardiogram) Summary of Care Provided Hospital Course: REGINALDO HUFFMAN, is a 52 M with history of trigeminal neuralgia, depression, vertigo, type 2 diabetes mellitus, colon cancer status post resection chemo radiation in 2013, hypertension who presented to [facility] 11/23/2022 after syncopal episode after he got up from bed and walked into the living room.? In the ED he was found to have a hemoglobin of 6.3 and he was given 2 units packed red blood cells and hospitalist consulted for admission. He reportedly had a history of chronic anemia and was recently put on shots for that but had not had recent scopes even with this history of colon cancer. He endorsed that he had felt lightheaded and dizzy when he lost consciousness for several minutes but mother had not noted any shaking activity and he was not confused when he woke up. Had some headaches off and on and has a history of vertigo and initially thought that is why he was dizzy but had not passed out before like that. After the episode he did have some nausea for about 15 to 20 minutes and then resolved. Denied blood in stool or GI upset. Telemetry unremarkable, EKG normal sinus rhythm with no blocks. EEG negative. CT head with some atrophy but no acute process. He had positive orthostatics and was symptomatic as well. His water pill was held and he was given gentle fluids. FOBT was positive and he had an endoscopy which showed an irregular Z-line 37 cmfrom the incisors which was biopsied and type I isolated gastric varices withoutbleeding. Additionally had a single angiodysplastic bleeding lesion in the stomach which was treated with heater probe. GI recommended CT abdomen pelvis to assess for cirrhosis. Patient did have a TSH that was low and free T4 that was low and T3 was obtained which was also low. Obtained MRI of his pituitary to evaluate possible central hypothyroidism and causes behind that obtain MRI ofthe abdomen at the same time as CT with contrast given his kidney function was not ideal. MRI brain showed some moderate generalized atrophy and a normal pituitary. Liver ultrasound shows hepatomegaly with heterogenous echotexture ofthe liver and multiple gallstones as well as a small right renal cyst. Abdominal MRI showed mild hepatosplenomegaly with no focal liver lesions and cholelithiasis. GI recommended broad work-up for his liver and that was ordered. His symptoms and orthostatic positive blood pressure did improve with fluids and his hemoglobin stabilized. Given no further acute complaints work-upfor his thyroid can be continued as an outpatient. Given possibility of precipitating acute renal crisis by empirically treating with Synthroid when hissymptoms have improved feel this can be worked up with close outpatient follow-up. Advised to follow-up closely with his PCP and gave information for follow-up with endocrinology. Basic discharge instructions as followed: -You will need to follow-up with Dr. Warren with [facility] in his office upon discharge.? Please call his office to schedule your hospital follow-up appointment (ph. [phone]) -It is advised that you follow-up with endocrinology upon discharge to further evaluate your thyroid, contact information below.? Please call on Monday to schedule an appointment. -Recommend that you wear compression stockings daily and after laying down for period of time and use it up to sit on the side of the bed for several minutes prior to standing.? Then you should stand to verify no lightheaded or dizziness prior to ambulating.? Also recommend discussing this with your primary care physician upon discharge in the event there is any additional work-up they recommend -You have multiple lab values pending.? You can follow-up with your primary carephysician to further review results once available.? The [facility] patient portal will also have your lab results as they become available, would recommend signing up for this and utilizing this as it will be helpful at follow-up appointments if you are primary care physician does not have access to the [facility] medical record. -Would recommend stopping your doxazosin as this can worsen orthostatic hypotension and dizziness and increase your chances of having another episode ofpassing out. -You were somewhat dehydrated when you came in and your water pill was held.? Would recommend continue to hold this until a follow-up with your prescribing physician for further instructions.? But advised to weigh yourself daily if you gain more than 1 pound in a day or 5 pounds in a week please contact your primary care physician. -Continue your other home medications -Please call your primary care provider's office upon discharge to schedule a hospital follow up within 1 week. -For any concerning signs or symptoms please call 911 or proceed to the nearest emergency department -Iron 60, TIBC 296, transferrin pending, ferritin 46 -Ceruloplasmin and copper pending -TSH 0.35, free T40.57, free T31.9 -Testosterone panel pending -Cortisol 5.60 -Carbamazepine level 7.3 -Antimitochondrial antibody and anti-smooth muscle antibody pending -Hepatitis panel pending Chest x-ray 11/23/2022: Stable chest no visual focal infiltrate CT head 11/23/2022: Chronic involutional changes of the brain Echocardiogram 11/23/2022: Normal LV size, EF 60%, mild concentric left ventricular hypertrophy Liver ultrasound 11/25/2022: Hepatomegaly and heterogenous echotexture of the liver, multiple gallstones, small right renal cyst MRI brain 11/25/2022: Normal pituitary, moderate generalized atrophy Abdominal MRI: Mild hepatosplenomegaly, no focal liver lesion, cholelithiasis Physical Exam Narrative General: Alert, oriented, no apparent distress HEENT: Atraumatic, normocephalic Eyes: Anicteric, normal conjunctiva, extraocular movements grossly intact Neck: Supple Respiratory: Clear to auscultation bilaterally, normal respiratory effort Cardiovascular: Regular rate and rhythm GI: Soft, nontender, nondistended Extremities: No edema Musculoskeletal: Moving all extremities Neuro: No overt focal neurological deficits Skin: No rashes appreciated Psych: Cooperative Weight / BMI Weight Weight: 96.4 kg Body Mass Index (BMI) 32.2 ABG / Lab / Microbiology Data Result Diagrams: 11/26/22 07:09 11/26/22 07:09 Laboratory: Laboratory Results - last 24 hr 11/25/22 16:55: POC Glucose 242 H 11/25/22 20:59: Carbamazepine 7.3 11/25/22 21:11: POC Glucose 201 H 11/26/22 07:09: WBC 5.2, RBC 2.59 L, Hgb 7.8 L, Hct 23.7 L, MCV 91.5, MCH 30.1, MCHC 32.9, RDW Std Deviation 46.5 H, RDW Coeff of Ever 14.6, Plt Count 159, MPV 10.7, Immature Gran % (Auto) 0.800, Neut % (Auto) 60.6, Lymph % (Auto) 30.7, [place] % (Auto) 6.0, Eos % (Auto) 1.5, Baso % (Auto) 0.4, Absolute Neuts (auto) 3.2, Absolute Lymphs (auto) 1.60, Nucleated RBC % 0 11/26/22 07:09: Sodium 135 L, Potassium 4.5, Chloride 108 H, Carbon Dioxide 21.0, Anion Gap 6, BUN 30 H, Creatinine 1.86 H, Estim Creat Clear Calc 43.92, Est GFR (MDRD) Af Amer 49 L, Est GFR (MDRD) Non-Af 40 L, BUN/Creatinine Ratio 16.1, Glucose 228 H, Calcium 8.5, Total Bilirubin 0.20, AST 13 L, ALT 16, Alkaline Phosphatase 64, Total Protein 6.1 L, Albumin 2.7 L, Globulin 3.4, Albumin/Globulin Ratio 0.8 L 11/26/22 09:12: POC Glucose 216 H 11/26/22 12:10: Retic Count 4.38 H, Immature Retic Fraction 32.00 H, Retic Hgb Equivalent 33.6 11/26/22 12:10: Iron 60 L, TIBC 296, Ferritin 46, Lactate Dehydrogenase 159 11/26/22 12:30: POC Glucose 272 H Microbiology: Microbiology 11/23/22 17:12 Stool Stool Occult Blood (YENNI) - Final Occult Blood Positive Radiography Diagnostic Testing: Radiology Impression Liver Ultrasound 11/25/22 07:36 IMPRESSION: Hepatomegaly and heterogeneous echotexture of the liver. Multiple gallstones. Small right renal cyst. Electronically Signed: Steve Holguin MD at 14:48 EDT , Brain MRI 11/25/22 14:17 IMPRESSION: 1. Normal pituitary. 2. Moderate generalized atrophy. Electronically Signed: Oswald Hamilton MD at 5:35 EDT , Abdomen MRI 11/25/22 15:17 IMPRESSION: 1. Mild hepatosplenomegaly. 2. No focal liver lesion. 3. Cholelithiasis. Electronically Signed: Naisr Jolly MD at 12:11 EDT , D/C Instructions Discharge Diet: 1800 Calorie Control Diet Meaningful Use Info Meaningful Use Diagnoses (Choose all that apply): None applicable Discharge Plan Admission Admit Date/Time: 11/23/22 12:55 Primary Reason for Your Visit: Syncope Attending Provider: Maria Antonia Renae Primary Care Provider: Chriss Cruz Instructions Patient Instructions: ED Hypotension, Orthostatic Additional Instructions / Restrictions: DISCHARGE INSTRUCTIONS PLEASE READ *Please take this with you to your next doctors appointment* -You will need to follow-up with Dr. Warren with GI in his office upon discharge. Please call his office to schedule your hospital follow-up appointment (ph. [phone]) -It is advised that you follow-up with endocrinology upon discharge to further evaluate your thyroid, contact information below. Please call on Monday to schedule an appointment. -Recommend that you wear compression stockings daily and after laying down for period of time and use it up to sit on the side of the bed for several minutes prior to standing. Then you should stand to verify no lightheaded or dizziness prior to ambulating. Also recommend discussing this with your primary care physician upon discharge in the event there is any additional work-up they recommend -You have multiple lab values pending. You can follow-up with your primary carephysician to further review results once available. The [facility] patient portal will also have your lab results as they become available, would recommend signing up for this and utilizing this as it will be helpful at follow-up appointments if you are primary care physician does not have access to the [facility] medical record. -Would recommend stopping your doxazosin as this can worsen orthostatic hypotension and dizziness and increase your chances of having another episode ofpassing out. -You were somewhat dehydrated when you came in and your water pill was held. Would recommend continue to hold this until a follow-up with your prescribing physician for further instructions. But advised to weigh yourself daily if you gain more than 1 pound in a day or 5 pounds in a week please contact your primary care physician. -Continue your other home medications -Please call your primary care provider's office upon discharge to schedule a hospital follow up within 1 week. -For any concerning signs or symptoms please call 911 or proceed to the nearest emergency department Discharge Orders/Prescriptions Prescriptions: Continued lisinopril 40 mg tablet 40 mg PO DAILY Basaglar KwikPen U-100 Insulin 100 unit/mL (3 mL) insulin pen 45 unit subcut .QAM & HS insulin lispro [Admelog SoloStar U-100 Insulin] 100 unit/mL insulin pen 36 unit subcut .QID Rx Instructions: 18 units @AM,Lunch, Dinner, and HS with sliding scale. omeprazole 20 mg capsule,delayed release(DR/EC) 20 mg PO DAILY Label Comments: take 1 capsule by mouth once daily 1/2 HOUR BEFORE BREAKFAST carbamazepine 200 mg tablet 600 mg PO BID Qty: 540 2RF cholecalciferol (vitamin D3) 1,000 UNIT capsule 1,000 unit PO DAILY Label Comments: VITAMIN atenolol 50 mg tablet 50 mg PO BID Label Comments: BLOOD PRESURE sertraline 100 MG tablet 100 mg PO DAILY multivitamin with folic acid 1 TABLET tablet 1 tab PO DAILY fish oil-dha-epa 1 EACH capsule 1 each PO DAILY aripiprazole [Abilify] 2 mg tablet 2 mg PO DAILY Label Comments: take 2 tablets by mouth once daily meclizine 25 mg tablet 25 mg PO TID PRN (Reason: dizziness) Qty: 30 0RF cyanocobalamin (vitamin B-12) 500 MCG tablet 500 mcg PO DAILY@0800 rosuvastatin 40 MG tablet 40 mg PO DAILY Discontinued doxazosin 4 mg tablet 4 mg PO DAILY Label Comments: take 1 tablet by mouth once daily furosemide 20 mg tablet 20 mg PO DAILY Referrals / Follow Up: Aquiles Warren DO [Med Staff - Active Staff] - See Referral Note (You will needto follow-up with Dr. Warren with GI in his office upon discharge. Please call his office to schedule your hospital follow-up appointment (ph. [phone])) Chandana Griffin MD [Med Staff - Courtesy Staff] - See Referral Note (Please call to establish care with endocrinology upon discharge for further work-up) Chriss Cruz MD [Primary Care Provider] - Within 1 Week Disposition Disposition (needs filled in before D/C Order can be placed): Home, Self Care Charges/Coding Visit Charges Inpatient E&M: 09688 Disch Hosp >30min 11/26/22 1609 <Electronically signed by Maria Antonia Renae MD> Cosigner Signature (if applicable): CC: Dr. Maria Antonia Renae MD; Dr. Chriss Cruz MD~ Signed [facility] Work Phone: 1(805) 427-413604-01-2023 Progress note Author Aquiles Warren [facility] November 26, 2022 11:41am Note Date/Time November 26, 2022 11:3 8am [facility] [place] [facility] Medical Records Department [address] [place] [address] Progress Note 11/26/22 1137 MR#: [id number] Acct: [id number] Name: REGINALDO HUFFMAN Rep #:[id number] : 1970 52 From: Aquiles Warren DO PCP: Dr. Chriss Cruz MD Status:ADM I N Location: [place] [address] Subjective Subjective Patient does not have any abdominal pain. He has some mild nausea. He denies any chest pain or shortness of breath. Objective Data Objective Data Vital Signs: Vital Signs Temp Pulse Resp BP Pulse Ox O2 Del Method 99.5 F H 77 16 150/82 H 100 Room Air 11/26/22 09:09 11/26/22 09:09 11/26/22 09:09 11/26/22 09:09 11/26/22 09:09 11/26/22 09:09 Oxygen Delivery Method Room Air Weight: 212 lb 8.41 oz Body Mass Index (BMI) 32.2 Intake & Output: Intake and Output for Last 24 Hours 11/24/22 11/25/22 11/26/22 23:59 23:59 23:59 Intake Total 3188.33 / 3188.33 811.25 / 811.25 800 / 800 Output Total 800 / 800 Balance 2388.33 / 2388.33 811.25 / 811.25 800 / 800 Lab / Micro Data Result Diagrams: 11/26/22 07:09 11/26/22 07:09 Labs: Laboratory Results - last 24 hr 11/25/22 12:12: POC Glucose 278 H 11/25/22 16:55: POC Glucose 242 H 11/25/22 20:59: Carbamazepine 7.3 11/25/22 21:11: POC Glucose 201 H 11/26/22 07:09: WBC 5.2, RBC 2.59 L, Hgb 7.8 L, Hct 23.7 L, MCV 91.5, MCH 30.1, MCHC 32.9, RDW Std Deviation 46.5 H, RDW Coeff of Ever 14.6, Plt Count 159, MPV 10.7, Immature Gran % (Auto) 0.800, Neut % (Auto) 60.6, Lymph % (Auto) 30.7, [place] % (Auto) 6.0, Eos % (Auto) 1.5, Baso % (Auto) 0.4, Absolute Neuts (auto) 3.2, Absolute Lymphs (auto) 1.60, Nucleated RBC % 0 11/26/22 07:09: Sodium 135 L, Potassium 4.5, Chloride 108 H, Carbon Dioxide 21.0, Anion Gap 6, BUN 30 H, Creatinine 1.86 H, Estim Creat Clear Calc 43.92, Est GFR (MDRD) Af Amer 49 L, Est GFR (MDRD) Non-Af 40 L, BUN/Creatinine Ratio 16.1, Glucose 228 H, Calcium 8.5, Total Bilirubin 0.20, AST 13 L, ALT 16, Alkaline Phosphatase 64, Total Protein 6.1 L, Albumin 2.7 L, Globulin 3.4, Albumin/Globulin Ratio 0.8 L 11/26/22 09:12: POC Glucose 216 H Micro: Microbiology 11/23/22 17:12 Stool Stool Occult Blood (YENNI) - Final Occult Blood Positive Radiography Diagnostic Testing: Radiology Impression Liver Ultrasound 11/25/22 07:36 IMPRESSION: Hepatomegaly and heterogeneous echotexture of the liver. Multiple gallstones. Small right renal cyst. Electronically Signed: Steve Holguin MD at 14:48 EDT , Brain MRI 11/25/22 14:17 IMPRESSION: 1. Normal pituitary. 2. Moderate generalized atrophy. Electronically Signed: Oswald Hamilton MD at 5:35 EDT , Rhythm Strip Rhythm Strip: Sinus Rhythm Rate: 72 Ectopy: None Physical Exam Narrative General: Alert, oriented, no apparent distress HEENT: Atraumatic, normocephalic Eyes: Anicteric, normal conjunctiva, extraocular movements grossly intact Neck: Supple Respiratory: Clear to auscultation bilaterally, normal respiratory effort Cardiovascular: Regular rate and rhythm GI: Soft, nontender, nondistended Extremities: No edema Musculoskeletal: Moving all extremities Neuro: No overt focal neurological deficits Skin: No rashes appreciated Psych: Cooperative Assessment & Plan Assessment/Plan (1) Varices of esophagus determined by endoscopy: PLAN: Varices at the esophagus likely secondary to mild portal hypertension. I do not see any signs of severe liver disease at this time due to the fact that his platelets did recover. I would need to see what his INR is and also a good view of his spleen to see if there is any element of splenomegaly. He does havea normal MCV which goes against severe liver disease. I would get a dedicated image of his abdomen either as an inpatient or outpatient. That would be in MRIof the abdomen with concentration the liver versus CT scan of the abdomen pelvisto look for other signs of portal hypertension such as splenomegaly, gastric or esophageal varices. I would check acute hepatitis panel along with studies for chronic liver disease including anti- smooth muscle antibody, antimitochondrial antibody, antiliver muscle kidney antibody, copper, ceruloplasmin, ferritin, transferrin saturation, reticulocyte count (2) Anemia: PLAN: . He has a slightly lower hemoglobin today. There is no signs of active GI bleeding at this time. He does have a history of colon cancer he may need repeat colonoscopy in the future to make sure there is no signs of chronic GI blood loss in the colon. If that is normal then I recommend a capsule endoscopyas an outpatient. Charges/Coding Visit Charges Inpatient E&M: 61058 Subs Hosp L3 11/26/22 1141 <Electronically signed by Aquiles Friend DO> Aquiles Friend DO Cosigner Signature (if applicable): CC: ~ Signed [facility] Work Phone: 1(276) 815-613803-31-[address] Renae [facility] November 25, 2022 9:00am Note Date/Time November 25, 2022 8:5 5am [facility] Medical Records Department [address] [place] [address] Progress Note - Hospitalist 11/25/22 0844 MR#: [id number] Acct: [id number] Name: REGINALDO HUFFMAN Rep #:[id number] : 1970 52 From: Maria Antonia Renae MD PCP: Dr. Chriss Cruz MD Status:ADM I N Location: [place] [address] Reason for Visit Reason for Visit: Diagnoses Anemia, unspecified (11/23/22) Syncope and collapse (11/23/22) Personal history of other specified conditions (11/23/22) Subjective Subjective Continues to be dizzy and have symptomatic orthostatic hypotension. No diarrhea, does feel better than he had but still having significant difficulties Objective Data Objective Data Vital Signs: Vital Signs Temp Pulse Resp BP Pulse Ox O2 Del Method 98.1 F 66 16 179/83 H 100 Room Air 11/25/22 03:00 11/25/22 08:23 11/25/22 03:00 11/25/22 08:23 11/25/22 03:00 11/25/22 03:00 Oxygen Delivery Method Room Air Weight: 97 kg Body Mass Index (BMI) 32.3 Intake & Output: Intake and Output for Last 24 Hours 11/23/22 11/24/22 11/25/22 23:59 23:59 23:59 Intake Total 1220 / 1220 3188.33 / 3188.33 Output Total 800 / 800 Balance 1220 / 1220 2388.33 / 2388.33 Lab / Micro Data Result Diagrams: 11/25/22 04:38 11/25/22 04:38 Labs: Laboratory Results - last 24 hr 11/24/22 11:18: POC Glucose 138 H 11/24/22 16:34: POC Glucose 165 H 11/24/22 21:15: POC Glucose 194 H 11/25/22 04:38: WBC 5.9, RBC 2.77 L, Hgb 8.4 L, Hct 25.4 L, MCV 91.7, MCH 30.3, MCHC 33.1, RDW Std Deviation 48.0 H, RDW Coeff of Ever 14.7 H, Plt Count 177, MPV10.4, Immature Gran % (Auto) 1.500 H, Neut % (Auto) 66.0, Lymph % (Auto) 26.4, [place] % (Auto) 3.9, Eos % (Auto) 1.7, Baso % (Auto) 0.5, Absolute Neuts (auto) 3.9, Absolute Lymphs (auto) 1.56, Nucleated RBC % 0 11/25/22 04:38: Sodium 136, Potassium 4.4, Chloride 109 H, Carbon Dioxide 21.0, Anion Gap 6, BUN 36 H, Creatinine 1.81 H, Estim Creat Clear Calc 45.14, Est GFR (MDRD) Af Amer 51 L, Est GFR (MDRD) Non-Af 42 L, BUN/Creatinine Ratio 19.9, Glucose 231 H, Calcium 8.6, Total Bilirubin 0.10 L, AST 12 L, ALT 16, Alkaline Phosphatase 63, Total Protein 6.1 L, Albumin 2.8 L, Globulin 3.3, Albumin/Globulin Ratio 0.8 L 11/25/22 07:59: POC Glucose 201 H Micro: Microbiology 11/23/22 17:12 Stool Stool Occult Blood (YENNI) - Final Occult Blood Positive Rhythm Strip Rhythm Strip: Sinus Rhythm Rate: 72 Ectopy: None Physical Exam Narrative General: Alert, oriented, no apparent distress HEENT: Atraumatic, normocephalic Eyes: Anicteric, normal conjunctiva, extraocular movements grossly intact Neck: Supple Respiratory: Clear to auscultation bilaterally, normal respiratory effort Cardiovascular: Regular rate and rhythm GI: Soft, nontender, nondistended Extremities: No edema Musculoskeletal: Moving all extremities Neuro: No overt focal neurological deficits Skin: No rashes appreciated Psych: Cooperative Assessment & Plan Assessment/Plan (1) Syncope: PLAN: Plan #Sycnopal episode/positive orthostatic blood pressure -admit to telemetry -Suspect orthostatic secondary to low hemoglobin -We will transfuse 2 unit of packed red blood cells as well as hydration -EGK NSR, no blocks -CT head ordered -orthostatic vital signs +, pt quite symptomatic when standing and had to sit back down -will obtain echo -Holter monitor on d/c if no arrhythmia detected -EEG ordered given how long patient was down, though less likely seizure with patient on Tegretol -Hold Lasix and doxazosin -11/24: Orthostatic positive on floor, FOBT was positive. GI consulted. Receiving fluids, received 2 units packed red blood cells and hemoglobin responded. -11/25: Had EGD and had 1 angiodysplastic lesion that was treated. Also had grade 1 esophageal varices and it was recommended to look at liver. Patient still orthostatic positive and symptomatic upon standing. TSH and free T4 suggestive of central hypothyroidism, will MRI pituitary and obtain additional lab work-up to assess for other endocrine abnormalities that may be causing or contributing to this especially as patient does not seem volume depleted, hemoglobin is stable, and he has supine hypertension. We will add DIOR matute. Could be contributed to by Abilify though on very low dose, also could be due toautonomic instability due to longstanding diabetes. If work-up negative may need further outpatient evaluation and management. Remains on telemetry and there is no identifiable cause or contributor based on heart rate and rhythm. EEG was negative #Grade 1 esophageal varices -Already obtaining MRI of the head so will add MRI abdomen to evaluate liver, cannot do CT with contrast safely given kidney function #Acute on Chronic Anemia/history of colon cancer status postresection and chemoradiation in 2013 -IVPPI -stool occult -type and cross- transfuse 2u prbc -Has had chronic downtrend in his hemoglobin but reports no recent upper or lower endoscopies -If FOBT positive will consult GI -Follows with Dr. Ibarra as an outpatient and was recently started on an injectionto help his hemoglobin -11/24: FOBT positive, GI consulted, continue PPI IV -11/25: EGD 11/24 demonstrated an irregular Z-line which was biopsied and type I isolated gastric varices without bleeding, liver imaging ordered #DMII -glucose checks and SSI -Long-acting insulin continued at slightly lower dose as well as his 4 times daily lispro at lower dose in addition to the sliding scale #CKD stage IIIb -Appears to be close to baseline -Follows with Dr. Rm as an outpatient #Depression -Continue Abilify and Tegretol -We will obtain Tegretol levels #DVT ppx: SCDs Maria Antonia Renae MD Time spent in the patient's overall evaluation,decision-making process, review of diagnostic data, adjustment of management, discussion with other providers, nursing nursing and ancillary staff involved in patient's care documentation, 30minutes Charges/Coding Visit Charges Inpatient E&M: 70808 Subs Hosp L2 11/25/22 0900 <Electronically signed by Maria Antonia Renae MD> Cosigner Signature (if applicable): CC: ~ Signed [facility] Work Phone: 1(893) 850-760703-30-2023 Consult note Author Aquiles Warren [facility] November 24, 2022 6:01pm Note Date/Time November 24, 2022 5:5 6pm [facility] Medical Records Department [address] [place] [address] Consultation - GI 11/23/22 2300 MR#: [id number] Acct: [id number] Name: REGINALDO HUFFMAN Rep #:[id number] : 1970 52 From: Aquiles Warren DO PCP: Dr. Chriss Cruz MD Status:ADM I N Location: [place] [address] HPI Consult Data Date of Consult: 11/23/22 HPI Narrative Reason for Consultation: Anemia HPI Narrative: REGINALDO HUFFMAN, is a 52 M who presents after a syncopal episode. He reportedlyhada syncopal episode today at home and lasted maybe 5 minutes.? Said he had some mild dizziness and nausea before it happened.? He was upright sitting when it occurred.? No fall no injury.? No seizure activity.? No chest pain or shortness ofbreath.? He is on no blood thinners.? He has had multiple syncopal events in thepast without any specific diagnosis.? He has had no recent illness or any recenthospitalization.? He has no cardiac history. His hemoglobin was discovered to be 6.3. It is down from 9.6. He was diagnosed with right-sided colon cancer, stage IIIA(pT1 pN1a M0).? 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 He had 12 cycles of FOLFOX from October 21, 2014 to March 24, 2015.? CT scan on August 11, 2015 showed 8.5 mm hypodensity in liver which has remained stable on MRI done on April 21, 2016 which subsequently resolved.? [facility] Medical History Alcohol abuse Anemia Asthma Cancer Carpal tunnel syndrome Depressive disorder Diabetes type 2, controlled GERD (gastroesophageal reflux disease) Hepatitis C High cholesterol History of alcohol abuse History of colon cancer HTN (hypertension) Hx of vertigo Hypoglycemia Neuropathy Obesity Pancreatitis portacath placement Seizure disorder Therapeutic drug monitoring Trigeminal nerve disorder Home Medications cholecalciferol (vitamin D3) 25 mcg (1,000 unit) capsule 1,000 unit PO DAILY 10/10/13 [History Last Taken 11/13/15] sertraline 100 mg tablet 100 mg PO DAILY 07/18/14 [History Last Taken 11/13/15] multivitamin with folic acid 400 mcg tablet 1 tab PO DAILY 10/21/14 [History Last Taken 11/13/15] cyanocobalamin (vitamin B-12) 500 mcg tablet 500 mcg PO DAILY@0800 11/24/16 [History Last Taken Unknown] rosuvastatin 40 mg tablet 40 mg PO DAILY 11/24/16 [History Last Taken Unknown] atenolol 50 mg tablet 50 mg PO BID 02/14/18 [History Last Taken Unknown] fish oil-dha-epa 1,200 mg-144 mg-216 mg capsule 1 each PO DAILY 11/14/20 [History Last Taken Unknown] aripiprazole 2 mg tablet (Abilify) 2 mg PO DAILY 12/24/20 [History Last Taken Unknown] insulin glargine 100 unit/mL (3 mL) subcutaneous pen (Basaglar KwikPen U-100 Insulin) 45 unit subcut .QAM & HS 05/20/21 [History Last Taken Unknown] insulin lispro 100 unit/mL subcutaneous pen (Admelog SoloStar U-100 Insulin lispro) 36 unit subcut .QID 05/20/21 [History Last Taken Unknown] lisinopril 40 mg tablet 40 mg PO DAILY 05/20/21 [History Last Taken Unknown] omeprazole 20 mg capsule,delayed release 20 mg PO DAILY 08/10/21 [History Last Taken Unknown] meclizine 25 mg tablet 25 mg PO TID PRN dizziness #30 tabs 02/13/22 [Rx Last Taken Unknown] doxazosin 4 mg tablet 4 mg PO DAILY 05/10/22 [History Last Taken Unknown] carbamazepine 200 mg tablet 600 mg PO BID #540 tabs 11/02/22 [Rx Last Taken Unknown] furosemide 20 mg tablet 20 mg PO DAILY 11/02/22 [History Last Taken Unknown] Allergy/AdvReac Type Severity Reaction Status Date / Time erythromycin base AdvReac Severe Hives Verified 11/23/22 11:06 loratadine [From Claritin] AdvReac Severe Rash Verified 11/23/22 11:06 Family History Grandmother Cervical cancer Diabetes Hypertension Trigeminal neuralgia Mother Uterine cancer Arthritis Diabetes Hypertension Grandfather Heart disease Arthritis Diabetes Hypertension Unknown Diabetes Arthritis Father Arthritis Diabetes Hypertension Sister Diabetes Hypertension Uncle CVA (cerebral vascular accident) Aunt Cerebral aneurysm Surgical History H/O left hemicolectomy Hx of appendectomy Social History (Updated 11/24/22 @ 11:01 by Monie Siegel) current gender identity: male Smoking Status: Former smoker Tobacco: How many years used: 20 how long ago did patient quit smoking: quit 2003 second hand exposure: No alcohol intake: former details: quit 2003 substance use type: former substance user Date of last use: Used Marijuana since he was a teenager ROS ROS Narrative Negative except as documented in the interval HPI Constitutional Constitutional: Reports systems reviewed and no addt'l complaints, except as documented Eyes Eyes: Reports systems reviewed and no addt'l complaints, except as documented ENT HEENT: Reports systems reviewed and no addt'l complaints, except as documented Cardiovascular Cardiovascular: Reports systems reviewed and no addt'l complaints, except as documented Respiratory/Chest Respiratory/Chest: Reports systems reviewed and no addt'l complaints, except as documented Gastrointestinal Gastrointestinal: Reports systems reviewed and no addt'l complaints, except as documented Genitourinary Genitourinary: Reports systems reviewed and no addt'l complaints, except as documented Musculoskeletal Musculoskeletal: Reports systems reviewed and no addt'l complaints, except as documented Integumentary Integumentary: Reports systems reviewed and no addt'l complaints, except as documented Neurologic Neurologic: Reports systems reviewed and no addt'l complaints, except as documented Psychiatric Psychiatric: Reports systems reviewed and no addt'l complaints, except as documented Endocrine Endocrinology: Reports systems reviewed and no addt'l complaints, except as documented Hematologic/Lymphatic Hematologic/Lymphatic: Reports systems reviewed and no addt'l complaints, exceptas documented Allergic/Immunologic Allergic/Immunologic: Reports systems reviewed and no addt'l complaints, except as documented Physical Exam Narrative General: Alert, oriented, no apparent distress HEENT: Atraumatic, normocephalic Eyes: Anicteric, normal conjunctiva, extraocular movements grossly intact Neck: Supple Respiratory: Clear to auscultation bilaterally, normal respiratory effort Cardiovascular: Regular rate and rhythm GI: Soft, nontender, nondistended Extremities: No edema Musculoskeletal: Moving all extremities Neuro: No overt focal neurological deficits Skin: No rashes appreciated Psych: Cooperative Lab / Micro Data Result Diagrams: 11/24/22 04:25 11/24/22 04:25 Labs: Laboratory Results - last 24 hr 11/23/22 12:36: Blood Type O POSITIVE, Antibody Screen NEGATIVE, Crossmatch See Detail 11/23/22 20:29: POC Glucose 333 H 11/24/22 04:25: WBC 5.0, RBC 2.68 L, Hgb 8.2 L, Hct 24.1 L, MCV 89.9, MCH 30.6, MCHC 34.0, RDW Std Deviation 44.4 H, RDW Coeff of Ever 14.1, Plt Count 131 L, MPV10.5, Immature Gran % (Auto) 2.400 H, Neut % (Auto) 59.0, Lymph % (Auto) 30.8, [place] % (Auto) 6.4, Eos % (Auto) 1.0, Baso % (Auto) 0.4, Absolute Neuts (auto) 3.0, Absolute Lymphs (auto) 1.55, Nucleated RBC % 0 11/24/22 04:25: Sodium 136, Potassium 4.5, Chloride 110 H, Carbon Dioxide 19.0 L, Anion Gap 7, BUN 51 H, Creatinine 1.99 H, Estim Creat Clear Calc 41.06, Est GFR (MDRD) Af Amer 45 L, Est GFR (MDRD) Non-Af 37 L, BUN/Creatinine Ratio 25.6 H, Glucose 202 H, Calcium 8.0 L, Total Bilirubin 0.10 L, AST 8 L, ALT 14 L, Alkaline Phosphatase 60, Total Protein 5.6 L, Albumin 2.6 L, Globulin 3.0, Albumin/Globulin Ratio 0.9, TSH 0.35 L 11/24/22 04:25: Free T4 0.57 L 11/24/22 08:09: POC Glucose 172 H 11/24/22 11:18: POC Glucose 138 H 11/24/22 16:34: POC Glucose 165 H Micro: Microbiology 11/23/22 17:12 Stool Stool Occult Blood (YENNI) - Final Occult Blood Positive Rhythm Strip Rhythm Strip: Sinus Rhythm Rate: 72 Ectopy: None Assessment & Plan Assessment/Plan (1) Anemia: PLAN: Plan The differential diagnosis for acute on chronic blood loss would be GI blood loss secondary to peptic ulcer disease, angiodysplasia, telangiectasia, bleedingfrom colon cancer recurrence. He should undergo an upper endoscopy to evaluate his upper GI tract. He may need a colonoscopy depending on what the findings from the upper endoscopy. He was explained alternatives, risk, benefits any bleeding, and actually, sepsis, perforation, need for emergent surgery . He will have an ASA of 3. Charges/Coding Visit Charges Inpatient E&M: 35311 Init Hosp L3 11/24/22 1801 <Electronically signed by Aquiles Friend DO> Cosigner Signature (if applicable): CC: Dr. Chriss Cruz MD~ Signed [facility] Work Phone: 1(261) 707-865303-30-2023 History and physical note Author Dr. Renae [facility] November 24, 2022 12:35pm Note Date/Time November 23, 2022 1:1 4pm [facility] Medical Records Department [address] [place] [address] H&P Exam - Hospitalist 11/23/22 1307 MR#: [id number] Acct: [id number] Name: REGINALDO HUFFMAN Rep #:[id number] : 1970 52 From: Maria Antonia Renae MD PCP: Dr. Chriss Cruz MD Status:ADM I N Location: [place] [address] HPI - General General Date of Admission: 11/23/22 Date of Service: 11/23/22 HPI Narrative REGINALDO HUFFMAN, is a 52 M with history of trigeminal neuralgia, depression, vertigo, type 2 diabetes mellitus, colon cancer status post resection chemo radiation in 2013, hypertension who presented to [facility] 11/23/2022 after syncopal episode. In the ED he was found to have a hemoglobin of 6.3 and hospitalist consulted for admission. He reportedly has a history of anemia and recently started to shots to help his hemoglobin a week ago through Dr. Ibarra's office though he is not sure which injection this was but said it wasat the suggestion of his director digital communications. He had been in his usual health until this morning. He got up and went to the bathroom and then went to his living room, he became somewhat lightheaded and sat down on the bench and then lost consciousness. Mother at bedside reports he was out for about 5 minutes but hadno shaking or other noted activity. He was not confused when he woke up. Has had some headaches off and on lately, does report history of vertigo and initially thought that that was this but denies ever passing out without before. Denies chest pain or shortness of breath. No numbness weakness or tingling. No recent rashes, bruising, bleeding. Shortly after his syncopal episode he didhave some dizziness and nausea for about 15 to 20 minutes and that is resolved. Had not had any GI upset before or after. [facility] Medical History Alcohol abuse Anemia Asthma Cancer Carpal tunnel syndrome Depressive disorder Diabetes type 2, controlled GERD (gastroesophageal reflux disease) Hepatitis C High cholesterol History of alcohol abuse History of colon cancer HTN (hypertension) Hx of vertigo Hypoglycemia Neuropathy Obesity Pancreatitis portacath placement Seizure disorder Therapeutic drug monitoring Trigeminal nerve disorder Home Medications cholecalciferol (vitamin D3) 25 mcg (1,000 unit) capsule 1,000 unit PO DAILY 10/10/13 [History Last Taken 11/13/15] sertraline 100 mg tablet 100 mg PO DAILY 07/18/14 [History Last Taken 11/13/15] multivitamin with folic acid 400 mcg tablet 1 tab PO DAILY 10/21/14 [History Last Taken 11/13/15] cyanocobalamin (vitamin B-12) 500 mcg tablet 500 mcg PO DAILY@0800 11/24/16 [History Last Taken Unknown] rosuvastatin 40 mg tablet 40 mg PO DAILY 11/24/16 [History Last Taken Unknown] atenolol 50 mg tablet 50 mg PO BID 02/14/18 [History Last Taken Unknown] fish oil-dha-epa 1,200 mg-144 mg-216 mg capsule 1 each PO DAILY 11/14/20 [History Last Taken Unknown] aripiprazole 2 mg tablet (Abilify) 2 mg PO DAILY 12/24/20 [History Last Taken Unknown] insulin glargine 100 unit/mL (3 mL) subcutaneous pen (Basaglar KwikPen U-100 Insulin) 45 unit subcut .QAM & HS 05/20/21 [History Last Taken Unknown] insulin lispro 100 unit/mL subcutaneous pen (Admelog SoloStar U-100 Insulin lispro) 36 unit subcut .QID 05/20/21 [History Last Taken Unknown] lisinopril 40 mg tablet 40 mg PO DAILY 05/20/21 [History Last Taken Unknown] omeprazole 20 mg capsule,delayed release 20 mg PO DAILY 08/10/21 [History Last Taken Unknown] meclizine 25 mg tablet 25 mg PO TID PRN dizziness #30 tabs 02/13/22 [Rx Last Taken Unknown] doxazosin 4 mg tablet 4 mg PO DAILY 05/10/22 [History Last Taken Unknown] carbamazepine 200 mg tablet 600 mg PO BID #540 tabs 11/02/22 [Rx Last Taken Unknown] furosemide 20 mg tablet 20 mg PO DAILY 11/02/22 [History Last Taken Unknown] Allergy/AdvReac Type Severity Reaction Status Date / Time erythromycin base AdvReac Severe Hives Verified 11/23/22 11:06 loratadine [From Claritin] AdvReac Severe Rash Verified 11/23/22 11:06 Family History Grandmother Cervical cancer Diabetes Hypertension Trigeminal neuralgia Mother Uterine cancer Arthritis Diabetes Hypertension Grandfather Heart disease Arthritis Diabetes Hypertension Unknown Diabetes Arthritis Father Arthritis Diabetes Hypertension Sister Diabetes Hypertension Uncle CVA (cerebral vascular accident) Aunt Cerebral aneurysm Surgical History H/O left hemicolectomy Hx of appendectomy Social History Smoking Status: Former smoker Tobacco: How many years used: 20 how long ago did patient quit smoking: quit 2003 second hand exposure: No alcohol intake: former details: quit 2003 substance use type: former substance user Date of last use: Used Marijuana since he was a teenager Vital Signs Vital Signs Vital Signs: 11/23/22 11:07 11/23/22 11:11 11/23/22 11:29 Temperature 96.6 F L Temperature Source Temporal Pulse Rate 73 Pulse Rate [Lying] Respiratory Rate 18 Respiratory Effort Normal Non-Labored Respiratory Pattern Normal Blood Pressure 114/74 Blood Pressure [Lying] Blood Pressure [Sitting (for 1 minute prior to obtaining)] Blood Pressure Mean 87 Blood Pressure Mean [Lying] Blood Pressure Mean [Sitting (for 1 minute prior to obtaining)] Pulse Ox 100 Oxygen Delivery Method Room Air Room Air 11/23/22 12:48 11/23/22 12:30 Temperature 97.6 F L Temperature Source Temporal Pulse Rate 70 Pulse Rate [Lying] 71 Respiratory Rate 14 Respiratory Effort Respiratory Pattern Blood Pressure 113/60 Blood Pressure [Lying] 128/67 H Blood Pressure [Sitting (for 1 minute prior to obtaining)] 119/68 Blood Pressure Mean 77 Blood Pressure Mean [Lying] 87 Blood Pressure Mean [Sitting (for 1 minute prior to obtaining)] 85 Pulse Ox 100 Oxygen Delivery Method Room Air Weight Weight: 98.3 kg Body Mass Index (BMI) 32.8 Results Lab / Micro Data Result Diagrams: 11/23/22 11:37 11/23/22 11:37 Labs: Laboratory Results - last 24 hr 11/23/22 11:37: WBC 4.6, RBC 2.07 L, Hgb 6.3 L, Hct 19.0 L, MCV 91.8, MCH 30.4, MCHC 33.2, RDW Std Deviation 43.8, RDW Coeff of Ever 13.6, Plt Count 154, MPV 10.8, Immature Gran % (Auto) 1.300 H, Neut % (Auto) 65.2, Lymph % (Auto) 25.6, [place] % (Auto) 6.0, Eos % (Auto) 1.5, Baso % (Auto) 0.4, Absolute Neuts (auto) 3.0, Absolute Lymphs (auto) 1.19, Nucleated RBC % 0 11/23/22 11:37: Sodium 134 L, Potassium 5.1, Chloride 108 H, Carbon Dioxide 21.0, Anion Gap 5, BUN 44 H, Creatinine 2.27 H, Estim Creat Clear Calc 35.99, Est GFR (MDRD) Af Amer 39 L, Est GFR (MDRD) Non-Af 32 L, BUN/Creatinine Ratio 19.4, Glucose 336 H, Calcium 7.3 L, Troponin I High Sens 13 11/23/22 12:36: Crossmatch See Detail Rhythm Strip Rhythm Strip: Sinus Rhythm Rate: 72 Ectopy: None Radiology Impression Chest X-Ray 11/23/22 11:29 IMPRESSION: Stable chest no visualized focal infiltrate. Electronically Signed: Irma Cervantes MD at 12:49 EDT , Assessment & Plan Assessment/Plan (1) Syncope: PLAN: Plan #Sycnopal episode -admit to telemetry -Suspect orthostatic secondary to low hemoglobin -We will transfuse 2 unit of packed red blood cells as well as hydration -EGK NSR, no blocks -CT head ordered -orthostatic vital signs +, pt quite symptomatic when standing and had to sit back down -will obtain echo -Holter monitor on d/c if no arrhythmia detected -EEG ordered given how long patient was down, though less likely seizure with patient on Tegretol -Hold Lasix and doxazosin #Acute on Chronic Anemia/history of colon cancer status postresection and chemoradiation in 2013 -IVPPI -stool occult -type and cross- transfuse 2u prbc -Has had chronic downtrend in his hemoglobin but reports no recent upper or lower endoscopies -If FOBT positive will consult GI -Follows with Dr. Ibarra as an outpatient and was recently started on an injectionto help his hemoglobin #DMII -glucose checks and SSI -Long-acting insulin continued at slightly lower dose as well as his 4 times daily lispro at lower dose in addition to the sliding scale #CKD stage IIIb -Appears to be close to baseline -Follows with Dr. Rm as an outpatient #Depression -Continue Abilify and Tegretol #DVT ppx: SCDs Maria Antonia Renae MD Time spent in the patient's overall evaluation,decision-making process, review of diagnostic data, adjustment of management, discussion with other providers, nursing nursing and ancillary staff involved in patient's care documentation, 60minutes Charges/Coding Visit Charges Inpatient E&M: 41485 Init Hosp L2 11/23/22 1314 <Electronically signed by Maria Antonia Renae MD> Cosigner Signature (if applicable): CC: Dr. Maria Antonia Renae MD; Dr. Chriss Cruz MD~ Signed ADDENDUM by Dr. Maria Antonia Renae MD on 11/24/22 at 1235 Addendum Physical Exam Narrative General: Alert, oriented, no apparent distress HEENT: Atraumatic, normocephalic Eyes: Anicteric, normal conjunctiva, extraocular movements grossly intact Neck: Supple Respiratory: Clear to auscultation bilaterally, normal respiratory effort Cardiovascular: Regular rate and rhythm GI: Soft, nontender, nondistended Extremities: No edema Musculoskeletal: Moving all extremities Neuro: No overt focal neurological deficits Skin: No rashes appreciated Psych: Cooperative 11/24/22 1235<Electronically signed by Maria Antonia Renae MD> Cosigner Signature (if applicable): cc: Dr. Maria Antonia Renae MD; Dr. Chriss Cruz MD ~* Signed [facility] Work Phone: 1(414) 333-161803-30-2023 Procedure [facility] 11-24-2022 Procedure [facility]03-30-[address] Renae [facility] November 24, 2022 10:14am Note Date/Time November 24, 2022 10: 14am [facility] Medical Records Department [address] [place] [address] Telemedicine Confirmation Receipt 11/24/22 MR#: [id number] Acct: [id number] Name: REGINALDO HUFFMAN Rep #:[id number] : 1970 52 From: Maria Antonia Renae MD PCP: Dr. Chriss Cruz MD Status:ADM I N [facility] Telemed has confirmed receipt of a request for visit. This document confirms receipt of the order initiating the consult. To find the results of the consultation, please view the patient's reports for the scanned Telemed Consult. [facility] Work Phone: 1(894) 740-110803-30-[address] Renae [facility] November 24, 2022 9:31am Note Date/Time November 24, 2022 9:3 1am [facility] [place] [facility] Medical Records Department [address] [place] [address] Progress Note - Hospitalist 11/24/22928 MR#: [id number] Acct: [id number] Name: REGINALDO HUFFMAN Rep #:[id number] : 1970 52 From: Maria Antonia Renae MD PCP: Dr. Chriss Cruz MD Status:ADM I N Location: [place] [address] Reason for Visit Reason for Visit: Diagnoses Syncope and collapse (11/23/22) Subjective Subjective Still occasionally slightly dizzy but feels significantly better than yesterday,had a bowel movement overnight with no gross blood. Denied other significant complaints this morning Objective Data Objective Data Vital Signs: Vital Signs Temp Pulse Resp BP Pulse Ox O2 Del Method 98.9 F 68 14 161/90 H 100 Room Air 11/24/22 08:02 11/24/22 08:02 11/24/22 08:02 11/24/22 08:02 11/24/22 08:02 11/24/22 08:14 Oxygen Delivery Method Room Air Weight: 95.1 kg Body Mass Index (BMI) 31.8 Intake & Output: Intake and Output for Last 24 Hours 11/22/22 11/23/22 11/24/22 23:59 23:59 23:59 Intake Total 1220 / 1220 1000 / 1000 Balance 1220 / 1220 1000 / 1000 Lab / Micro Data Result Diagrams: 11/24/22 04:25 11/24/22 04:25 Labs: Laboratory Results - last 24 hr 11/23/22 11:37: WBC 4.6, RBC 2.07 L, Hgb 6.3 L, Hct 19.0 L, MCV 91.8, MCH 30.4, MCHC 33.2, RDW Std Deviation 43.8, RDW Coeff of Ever 13.6, Plt Count 154, MPV 10.8, Immature Gran % (Auto) 1.300 H, Neut % (Auto) 65.2, Lymph % (Auto) 25.6, [place] % (Auto) 6.0, Eos % (Auto) 1.5, Baso % (Auto) 0.4, Absolute Neuts (auto) 3.0, Absolute Lymphs (auto) 1.19, Nucleated RBC % 0 11/23/22 11:37: Sodium 134 L, Potassium 5.1, Chloride 108 H, Carbon Dioxide 21.0, Anion Gap 5, BUN 44 H, Creatinine 2.27 H, Estim Creat Clear Calc 35.99, Est GFR (MDRD) Af Amer 39 L, Est GFR (MDRD) Non-Af 32 L, BUN/Creatinine Ratio 19.4, Glucose 336 H, Calcium 7.3 L, Troponin I High Sens 13 11/23/22 12:36: Blood Type O POSITIVE, Antibody Screen NEGATIVE, Crossmatch See Detail 11/23/22 17:04: POC Glucose 294 H 11/23/22 20:29: POC Glucose 333 H 11/24/22 04:25: WBC 5.0, RBC 2.68 L, Hgb 8.2 L, Hct 24.1 L, MCV 89.9, MCH 30.6, MCHC 34.0, RDW Std Deviation 44.4 H, RDW Coeff of Ever 14.1, Plt Count 131 L, MPV10.5, Immature Gran % (Auto) 2.400 H, Neut % (Auto) 59.0, Lymph % (Auto) 30.8, [place] % (Auto) 6.4, Eos % (Auto) 1.0, Baso % (Auto) 0.4, Absolute Neuts (auto) 3.0, Absolute Lymphs (auto) 1.55, Nucleated RBC % 0 11/24/22 04:25: Sodium 136, Potassium 4.5, Chloride 110 H, Carbon Dioxide 19.0 L, Anion Gap 7, BUN 51 H, Creatinine 1.99 H, Estim Creat Clear Calc 41.06, Est GFR (MDRD) Af Amer 45 L, Est GFR (MDRD) Non-Af 37 L, BUN/Creatinine Ratio 25.6 H, Glucose 202 H, Calcium 8.0 L, Total Bilirubin 0.10 L, AST 8 L, ALT 14 L, Alkaline Phosphatase 60, Total Protein 5.6 L, Albumin 2.6 L, Globulin 3.0, Albumin/Globulin Ratio 0.9, TSH 0.35 L 11/24/22 04:25: Free T4 0.57 L 11/24/22 08:09: POC Glucose 172 H Micro: Microbiology 11/23/22 17:12 Stool Stool Occult Blood (YENNI) - Final Occult Blood Positive Radiography Diagnostic Testing: Radiology Impression Chest X-Ray 11/23/22 11:29 IMPRESSION: Stable chest no visualized focal infiltrate. Electronically Signed: Irma Cervantes MD at 12:49 EDT , Brain CT 11/23/22 13:03 IMPRESSION: Chronic involutional changes of the brain. Electronically Signed: Steve Holguin MD at 14:08 EDT , Echocardiogram 11/23/22 13:03 Interpretation Summary Normal LV size. Left ventricular systolic function is normal. The estimated ejection fraction is 60 %. Mild concentric left ventricular hypertrophy. Contrast injection was performed. Ordering Physician: Maria Antonia Renae Referring Physician: CHRISS CRUZ Performed By: Aleyda Glass RDCS Rhythm Strip Rhythm Strip: Sinus Rhythm Rate: 72 Ectopy: None Physical Exam Narrative General: Alert, oriented, no apparent distress HEENT: Atraumatic, normocephalic Eyes: Anicteric, normal conjunctiva, extraocular movements grossly intact Neck: Supple Respiratory: Clear to auscultation bilaterally, normal respiratory effort Cardiovascular: Regular rate and rhythm GI: Soft, nontender, nondistended Extremities: No edema Musculoskeletal: Moving all extremities Neuro: No overt focal neurological deficits Skin: No rashes appreciated Psych: Cooperative Assessment & Plan Assessment/Plan (1) Syncope: PLAN: Plan #Sycnopal episode -admit to telemetry -Suspect orthostatic secondary to low hemoglobin -We will transfuse 2 unit of packed red blood cells as well as hydration -EGK NSR, no blocks -CT head ordered -orthostatic vital signs +, pt quite symptomatic when standing and had to sit back down -will obtain echo -Holter monitor on d/c if no arrhythmia detected -EEG ordered given how long patient was down, though less likely seizure with patient on Tegretol -Hold Lasix and doxazosin -11/24: Orthostatic positive on floor, FOBT was positive. GI consulted. Receiving fluids, received 2 units packed red blood cells and hemoglobin responded. #Acute on Chronic Anemia/history of colon cancer status postresection and chemoradiation in 2013 -IVPPI -stool occult -type and cross- transfuse 2u prbc -Has had chronic downtrend in his hemoglobin but reports no recent upper or lower endoscopies -If FOBT positive will consult GI -Follows with Dr. Ibarra as an outpatient and was recently started on an injectionto help his hemoglobin -11/24: FOBT positive, GI consulted, continue PPI IV #DMII -glucose checks and SSI -Long-acting insulin continued at slightly lower dose as well as his 4 times daily lispro at lower dose in addition to the sliding scale #CKD stage IIIb -Appears to be close to baseline -Follows with Dr. Rm as an outpatient #Depression -Continue Abilify and Tegretol #DVT ppx: SCDs Maria Antonia Renae MD Time spent in the patient's overall evaluation,decision-making process, review of diagnostic data, adjustment of management, discussion with other providers, nursing nursing and ancillary staff involved in patient's care documentation, 30minutes Charges/Coding Visit Charges Inpatient E&M: 46323 Subs Hosp L2 11/24/22 0931 <Electronically signed by Maria Antonia Renae MD> Cosigner Signature (if applicable): CC: ~ Signed [facility] Work Phone: [phone]) 727-264603-29-[address] Hogan [facility] November 23, 2022 12:55pm Note Date/Time November 23, 2022 11: 37am [facility] Medical Records Department [address] [place] [id number] Emergency Department Summary 11/23/22 MR#: [id number] Acct: [id number] Name: REGINALDO HUFFMAN Rep #:[id number] : 1970 52 From: Galdino Hogan MD PCP: Dr. Chriss Cruz MD Status:ADM I NO Location: [place] [address] HPI History of Present Illness Chief Complaint: Syncope Informant: patient and parent Onset/Context/Timing Onset: Today Context: Sudden Onset Timing: Continuous Current Severity: Gone Maximum Severity: Moderate Narrative Narrative: 52-year-old male history of diabetes, hypertension and trigeminal neuralgia. Reportedly per his mom he had a syncopal episode today at home and lasted maybe 5 minutes. Said he had some mild dizziness and nausea before it happened. He was upright sitting when it occurred. No fall no injury. No seizure activity. No chest pain or shortness of breath. He is on no blood thinners. He has had multiple syncopal events in the past without any specific diagnosis. He has hadno recent illness or any recent hospitalization. He has no cardiac history. Prior similar symptoms: Yes Recent Illness/Hospitalization: No PFSH PFS Medical History Alcohol abuse Anemia Asthma Cancer Carpal tunnel syndrome Depressive disorder Diabetes type 2, controlled GERD (gastroesophageal reflux disease) Hepatitis C High cholesterol History of alcohol abuse History of colon cancer HTN (hypertension) Hx of vertigo Hypoglycemia Neuropathy Obesity Pancreatitis portacath placement Seizure disorder Therapeutic drug monitoring Trigeminal nerve disorder Home Medications cholecalciferol (vitamin D3) 25 mcg (1,000 unit) capsule 1,000 unit PO DAILY 10/10/13 [History Last Taken 11/13/15] sertraline 100 mg tablet 100 mg PO DAILY 07/18/14 [History Last Taken 11/13/15] multivitamin with folic acid 400 mcg tablet 1 tab PO DAILY 10/21/14 [History Last Taken 11/13/15] cyanocobalamin (vitamin B-12) 500 mcg tablet 500 mcg PO DAILY@0800 11/24/16 [History Last Taken Unknown] rosuvastatin 40 mg tablet 40 mg PO DAILY 11/24/16 [History Last Taken Unknown] atenolol 50 mg tablet 50 mg PO BID 02/14/18 [History Last Taken Unknown] fish oil-dha-epa 1,200 mg-144 mg-216 mg capsule 1 each PO DAILY 11/14/20 [History Last Taken Unknown] aripiprazole 2 mg tablet (Abilify) 2 mg PO DAILY 12/24/20 [History Last Taken Unknown] insulin glargine 100 unit/mL (3 mL) subcutaneous pen (Basaglar KwikPen U-100 Insulin) 45 unit subcut .QAM & HS 05/20/21 [History Last Taken Unknown] insulin lispro 100 unit/mL subcutaneous pen (Admelog SoloStar U-100 Insulin lispro) 36 unit subcut .QID 05/20/21 [History Last Taken Unknown] lisinopril 40 mg tablet 40 mg PO DAILY 05/20/21 [History Last Taken Unknown] omeprazole 20 mg capsule,delayed release 20 mg PO DAILY 08/10/21 [History Last Taken Unknown] meclizine 25 mg tablet 25 mg PO TID PRN dizziness #30 tabs 02/13/22 [Rx Last Taken Unknown] doxazosin 4 mg tablet 4 mg PO DAILY 05/10/22 [History Last Taken Unknown] carbamazepine 200 mg tablet 600 mg PO BID #540 tabs 11/02/22 [Rx Last Taken Unknown] furosemide 20 mg tablet 20 mg PO DAILY 11/02/22 [History Last Taken Unknown] Allergy/AdvReac Type Severity Reaction Status Date / Time erythromycin base AdvReac Severe Hives Verified 11/23/22 11:06 loratadine [From Claritin] AdvReac Severe Rash Verified 11/23/22 11:06 Family History Grandmother Cervical cancer Diabetes Hypertension Trigeminal neuralgia Mother Uterine cancer Arthritis Diabetes Hypertension Grandfather Heart disease Arthritis Diabetes Hypertension Unknown Diabetes Arthritis Father Arthritis Diabetes Hypertension Sister Diabetes Hypertension Uncle CVA (cerebral vascular accident) Aunt Cerebral aneurysm Surgical History H/O left hemicolectomy Hx of appendectomy Social History Smoking Status: Former smoker Tobacco: How many years used: 20 how long ago did patient quit smoking: quit 2003 second hand exposure: No alcohol intake: former details: quit 2003 substance use type: former substance user Date of last use: Used Marijuana since he was a teenager ROS ROS ED ROS Narrative No recent illness. Review of Systems ROS Unobtainable: Denies due to encephalopathy Constitutional Constitutional ED: Denies chills or fever(s) Eyes Eyes: Denies blurry vision ENT ENT ED: Denies ear pain Cardiovascular Cardiovascular: Denies chest pain Respiratory/Chest Respiratory/Chest: Denies cough or dyspnea Gastrointestinal Gastrointestinal: Denies abdominal pain, constipation, diarrhea, melena, nausea or vomiting Genitourinary Genitourinary ED: Denies dysuria or hematuria Musculoskeletal Musculoskeletal: Denies arthralgias Integumentary Denies abscess Neurologic Neurologic: Denies headache(s) Psychiatric Psychiatric: Denies anxiety Endocrine Endocrinology: Denies cold intolerance Hematologic/Lymphatic Hematologic/Lymphatic: Reports none Allergic/Immunologic Allergic/Immunologic ED: Denies mouth swelling or tongue swelling EXAM Physical Exam Narrative Exam Narrative: 52-year-old male no acute distress. Vital signs stable afebrile. Pulse ox 100%on room air. Blood pressure 114/74. He does not look septic toxic or in any distress. He is awake alert sitting upright in bed. Mother is at bedside. H EENT exam unremarkable. Pupils round react light. No facial trauma. No droop. Normal speech. Neck nontender. Lungs clear. Heart regular rhythm rate about 70 no murmur. Chest wall nontender. Abdomen soft nontender. Moving all 4 extremities. 5 out of 5 control room technician strength. Dorsi plantarflexion intact. Normal range of motion. Nontender no deformity. Back nontender. Neurologically is awake and alert. Answering questions following commands. NIH score is 0. Normal neurologic exam. Const Vital Signs: 11/23/22 11:07 11/23/22 11:11 11/23/22 11:29 Temperature 96.6 F L Temperature Source Temporal Pulse Rate 73 Respiratory Rate 18 Respiratory Effort Normal Non-Labored Respiratory Pattern Normal Blood Pressure 114/74 Blood Pressure Mean 87 Pulse Ox 100 Oxygen Delivery Method Room Air Room Air 11/23/22 12:30 Temperature 97.6 F L Temperature Source Temporal Pulse Rate 70 Respiratory Rate 14 Respiratory Effort Respiratory Pattern Blood Pressure 113/60 Blood Pressure Mean 77 Pulse Ox 100 Oxygen Delivery Method Room Air Positive well nourished and well developed; Negative for cachectic, contracturesor unkempt General Appearance ED: well developed and NAD; Negative for unkempt, cachectic, contractures, cyanotic or diaphoretic Nutritional Appearance: Negative for cachectic HEENT Reports moist mucous membranes; Denies dry mucous membranes Negative for trauma or tenderness Mouth ED: No dry mucous membranes Mouth: No dry mucous membranes Eyes PERRL and EOMs intact bilaterally General Eye ED: Negative for pale conjunctiva or scleral icterus Neck no lymphadenopathy, supple and no JVD General: Negative for tenderness Lymph Lymphatic: Negative for other Chest Wall inspection of chest normal and palpation of chest normal Chest: Negative for other Resp normal respiratory effort and clear to auscultation bilaterally Effort and Inspection: Negative for retractions Auscultation: Negative for rales, rhonchi or wheezes Cardio regular rate, regular rhythm, S1 normal heart sound, S2 normal heart sound and no murmurs GI normal to inspection, nondistended, normoactive bowel sounds, non-tender, non-distended and no masses Inspection: Negative for abdominal distention Palpation: soft; Negative for tender Back/Spine Negative for no CVA tenderness General Back: Negative for CVA tenderness Cervical Spine: Negative for cervical spine tenderness Thoracic Spine / Upper Back: Negative for thoracic spinal tenderness Lumbar Spine / Lower Back: Negative for lumbar spinal tenderness Extremity normal to inspection General Extremety ED: Negative for edema or tenderness General Extremity: Negative for edema Neuro oriented x3, CN's II-XII intact bilaterally and no sensory deficits noted Sensorium / Orientation: alert; Negative for orientation impaired, lethargic or stuporous Motor Exam: strength 5/5 throughout Psych mental status grossly normal Appearance: Negative for unkempt Attitude: No agitated Mood & Affect: Negative for depressed, anxious or tearful Skin no rashes or lesions noted, no wounds and skin turgor normal Lesions: No lesion noted Rashes: No rashes noted Trauma: Negative for abrasion Wounds: Negative for wounds noted MDM MDM MDM Narrative Medical decision making narrative: 52-year-old male with a syncopal episode. Is a completely normal exam at this time. Has had multiple syncopal events in the past without any specific diagnosis. He has no cardiac history. Will undergo cardiac work-up. Orthostatic vital signs. He has a mild headache he will be given Tylenol. Repeat exam patient is doing well at 12:25 PM. His anemia is significantly worsened from last April is now down to 6.3 he is symptomatic with it. I donot know what specifically related or not to his syncope today but I think he needs transfused. I have ordered a type and cross for 2 units. I have the hospitalist on page for admission. History & Record Review Discussion w/independent historian: Patient and Family Lab Data Attestation: I reviewed the patient's lab results. Lab results narrative: Chest x-ray showed no acute abnormality. CBC shows a white count of 4.6. H&H is 6.3 and 19. Consistent with significantanemia. Platelet count 154. Electrolytes show sodium 134 gap of 5 BUN of 44 creatinine 2.27. Glucose is elevated at 336. Troponin is normal at 13. Comparing this to his old labs his renal insufficiency is chronic he had a priorcreatinine 2.59. He has a worsening anemia he was 9.6 around last April andhas progressively gone down and now is 6.3. Orthostatic vital signs lying were 128/67 with a heart rate of 71. Sitting 119/68 with a heart rate of 74. And patient attempted to stand get dizzy and sat down so they were not completed. Labs: Laboratory Results - last 24 hr 11/23/22 11/23/22 11/23/22 11:37 11:37 12:36 WBC 4.6 RBC 2.07 L Hgb 6.3 L Hct 19.0 L MCV 91.8 MCH 30.4 MCHC 33.2 RDW Std Deviation 43.8 RDW Coeff of Ever 13.6 Plt Count 154 MPV 10.8 Immature Gran % (Auto) 1.300 H Neut % (Auto) 65.2 Lymph % (Auto) 25.6 [place] % (Auto) 6.0 Eos % (Auto) 1.5 Baso % (Auto) 0.4 Absolute Neuts (auto) 3.0 Absolute Lymphs (auto) 1.19 Nucleated RBC % 0 Sodium 134 L Potassium 5.1 Chloride 108 H Carbon Dioxide 21.0 Anion Gap 5 BUN 44 H Creatinine 2.27 H Estim Creat Clear Calc 35.99 Est GFR (MDRD) Af Amer 39 L Est GFR (MDRD) Non-Af 32 L BUN/Creatinine Ratio 19.4 Glucose 336 H Calcium 7.3 L Troponin I High Sens 13 Crossmatch See Detail Radiography Chest X-Ray - ED: 1 View, Read by ED Physician, Normal, Heart, Lungs, Mediastinum and Bony Structures Diagnostic Testing: Clinical Impression(s) from Imaging Studies Chest X-Ray 11/23/22 11:29 IMPRESSION: Stable chest no visualized focal infiltrate. Electronically Signed: Irma Cervantes MD at 12:49 EDT , Chest x-ray, portable, single view, interpreted by myself shows no acute abnormality. Normal cardiac silhouette. No infiltrates. Left sided med port. Rhythm Strip Rhythm Strip: Sinus Rhythm Rate: 72 Ectopy: None EKG Initial EKG: Attestation: I personally reviewed and interpreted this EKG as follows: Interpretation: Sinus Rhythm and No Acute Injury Pattern Comments: Normal sinus rhythm rate of 72 no acute signs of [place] or ischemia. No change from prior EKG from October of last year. Prior EKG tracings: available for review Prior: Unchanged Discharge Plan Dx/Rx/DC Orders Clinical Impression: Syncope, Anemia, History of diabetes mellitus Disposition Disposition: Acute Care [facility] What to do if you have Problems For any increased pain, shortness of breath, bleeding, nausea or vomiting, chestpain, or any unexpected problems, contact your Primary Care Provider. Call [facility] ([phone]) or report to the closest Emergency Room. Call 911 if necessary. 11/23/22 1255 <Electronically signed by Galdino Hogan MD> Cosigner Signature (if applicable): CC: Dr. Chriss Cruz MD ~ Signed [facility] Work Phone: [phone]) 958-327702-09-2023 History of Present illness Narrative* Chriss Cruz MD - 10/06/2022 1:20 PM EST Patient [...] with nephrology. They are adding a water pill. He is unsure of what or dose. [...] 1 tablet by mouth once daily. omega 6-bml-lte-fish oil 300-400-1,000 mg cap Take 1 capsule [...] (Patient not taking: Reported on 10/06/2022) Insulin Jericho, Disposable, (PEN NEEDLES) 31 gauge x 1/4 [...] episode, unspecified [facility] Microalbuminuria on anna Mixed hyperlipidemia Seizure disorder (HCC) Negative EEG [...] deformity, or tenderness ASSESSMENT/PLAN: 1. Seizure disorder (HCC) - ICD9: 345.90, ICD10: G40.909 (primary diagnosis) - check level with next lab draw - CARBAMAZEPI/TEGRETOL 2. Hypertension due to endocrine disorder - ICD9: 405.99, 259.9, ICD10: I15.2 - getting new med per nephro. Follow up in four to six weeks. - ATENOLOL 50 MG TABLET 3. Moderate episode of recurrent major depressive disorder (HCC) - ICD9: 296.32, ICD10: F33. - ARIPIPRAZOLE 2 MG TABLET 4. Mixed hyperlipidemia - ICD9: 272.2, ICD10: E78.2 - ROSUVASTATIN 40 MG TABLET 5. Type 1 diabetes mellitus with diabetic polyneuropathy (HCC) - ICD9: 250.61, 357.2, ICD10: E10.42 - stable. Encouraged compliance. Follow with endo - INSULIN LISPRO (U-100) 100 UNIT/ML SUBCUTANEOUS PEN 6. 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) - ICD9: 250.41, 583.81, ICD10: E10.21 - INSULIN LISPRO (U-100) 100 UNIT/ML SUBCUTANEOUS PEN 7. Type 1 diabetes mellitus with stage 3 chronic kidney disease, unspecified whether stage 3a or 3bCKD (HCC) - ICD9: 250.41, 585.3, ICD10: E10.22, N18.30 - INSULIN LISPRO (U-100) 100 UNIT/ML SUBCUTANEOUS PEN 8. 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 Cruz. Candy Penn, MSN, LOCKET MAKER, PASSENGER SERVICE REPRESENTATIVE-C, CDE Endocrinology [facility]/[address], [address] [place] [address] Fax: documented in this encounterTrinity Health System01-24-2023 History of Present illness Narrative* Candy Penn APRN.CNP - 09/20/2022 2:59 PM EST Reason for [...] change medication. He is seeing nephrology in [place] ([facility] Under the care of hem/onc for colon [...] bit more sluggish. HLD: Managed per Dr. 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 30 tablet 5 omega 9-jsb-fha-fish oil 300-400-1,000 mg cap Take 1 capsule [...] minutes based on response and tolerability. 2 Webster 1 No current facility-administered medications for this visit. REVIEW OF SYSTEMS Review of Systems Respiratory: Negative for difficulty breathing. Cardiovascular: Negative for chest pain. Gastrointestinal: Negative for nausea, vomiting, diarrhea and constipation. PHYSICAL EXAMINATION BP 154/96 Pulse 90 Resp 16 Ht 172.8 cm (5' 8.03) Wt 98.6 kg (217 lb 6.4 oz) [...] (E10.21) Type 1 diabetes mellitus with nephropathy ([facility]) (primary encounter diagnosis) (E10.42) Type 1 diabetes mellitus with diabetic polyneuropathy ([facility]) (E10.22, N18.30) Type 1 diabetes mellitus with stage 3 chronic kidney disease, unspecified whether stage 3a or 3b CKD ([facility]) (E10.3211) Type 1 diabetes mellitus with mild nonproliferative retinopathy of right eye and macularedema ([facility]) Comment: glycemic control is trending higher. He [...] hyperlipidemia Comment/Plan:LIPID PANEL BASIC Managed per Dr. Cruz. taking gemfibrozil (N18.31) Stage 3a chronic kidney disease (HCC) Comment/Plan: Managed per nephrology (I10) Essential hypertension Comment/Plan: Managed per Dr. Cruz. Check blood pressure at home and follow up with Dr. Cruz. (E66.9, Z68.33) Class 1 obesity with serious [...] Medical Decision Making: Level: 4 - Moderate Candy Penn, MSN, LOCKET MAKER, PASSENGER SERVICE REPRESENTATIVE-C, CDE Endocrinology [facility] Building/[address], [address] [place], [place] [address] Fax: documented in this encounterTrinity Health System12-26-2022 History of Present illness Narrative* Ruma Ortiz APRN.COMMERCIAL CENSUS TAKER - 08/22/2022 10:28 AM EST CC: Patient [...] Diagnosis Date Acute GI bleeding 08/18/2015 Alcoholism ([facility]) 2003 Anemia Saw hematology and gi, probable chromic disease Asthma Chronic pancreatitis ([facility]) 2004 Colon cancer ([facility]) Dandy-Walker syndrome variant ([facility]) Esophageal reflux Hypertension Hypogonadism in male Major depressive disorder, recurrent episode, unspecified [facility] Microalbuminuria on anna Mixed hyperlipidemia Seizure disorder ([facility]) Negative EEG Trigeminal neuralgia Type 1 diabetes mellitus ([facility]) [address] Dr Zepeda. from pancreatitis. Villous adenoma [...] SS up to 140 units daily Insulin Jericho, Disposable, (PEN NEEDLES) 31 gauge x 1/4 [...] to 5 tabs a day prn. omega 9-ohp-rpr-fish oil 300-400-1,000 mg cap Take 1 capsule [...] Patient agreeable to treatment plan. Ruma Ortiz APRN.CNP documented in this encounterTrinity Health System11-11-2022 Miscellaneous Notes* Telephone Encounter - Shadia [...] advise. Shadia Renae Pss documented in this encounterTrinity Health System10-21-2022 History of Present illness Narrative* Candy Penn APRN.CNP - 06/17/2022 2:45 PM EDT Reason for Consultation: DM Type 1 Referring Physician: SELF HISTORY OF PRESENT ILLNESS Mr. Huffman is a 51 year old male presenting here today for a follow up of DM Type 1. As I recall, he was initially diagnosed with diabetes 2002. LV 10/29/21 A1C today is 9.2 Hx of [...] stating he has to travel far from [place] to do so. History in addition to [...] not taking it. HLD: Managed per Dr. 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 2 Webster 1 Blood-Glucose Meter (FREESTYLE LITE METER) monitoring kit 1 Each as needed. 1 Each 0 sildenafil (REVATIO) 20 mg tablet 2 to 5 tabs a day prn. 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 No enough data to make changes today. Plan: HEMOGLOBIN A1C (POC), insulin glargine (LANTUS SOLOSTAR U-100 INSULIN) 100 unit/mL (3 mL), insulin lispro (ADMELOG SOLOSTAR U-100 INSULIN) 100 unit/mL, Insulin Jericho, Disposable, (PEN NEEDLES) 31 gauge x 1/4 ndle, alcohol swabs, blood sugar diagnostic (FREESTYLE LITE STRIPS) test strip Continue current insulin doses. Check BG 4x per day. Mail me readings in 1-2 wk. Follow up with me in 3 months or PASSENGER SERVICE REPRESENTATIVE [place] (in [place]) (E29.1) Hypogonadism in male Comment/Plan: off supplement as of December 2020 and feeling well. (E78.2) Mixed hyperlipidemia Comment/Plan: Managed per Dr. Cruz. Now on gemfibrozil (N18.31) Stage 3a chronic kidney disease (HCC) Comment/Plan: he has been referred to nephrology but opted not to go. (I10) Essential hypertension Comment/Plan: Managed per Dr. Cruz. (E66.9, Z68.33) Class 1 obesity with serious comorbidity and body mass index (BMI) of 33.0 to 33.9 in adult, unspecified obesity type Comment: Body mass index is 33.45 kg/m . Plan: Encouraged increase dietary and exercise efforts as able *Declines influenza vaccine. I spent a total of 30 minutes on the date of the service which included preparing to see the patient, [id number] patient care, completing clinical documentation, obtaining and/or reviewing separately obtained history, performing a medically appropriate examination, counseling and educating the pat ient/family/caregiver, ordering medications, tests, or procedures, and communicating results to thepatient/family/caregiver. Candy Penn, MSN, LOCKET MAKER, PASSENGER SERVICE REPRESENTATIVE-C, CDE Endocrinology [facility]/[address] [place], [place] [address] Fax: documented in this encounterTrinity Health System10-07-2022 Miscellaneous Notes* Telephone Encounter - So Ferrer Pss - 06/03/2022 1:48 PM EDT Pharmacy verified in [facility] Patient has been identified by name and [...] advise. So Ferrer Pss documented in this encounterTrinity Health System10-06-2022 Miscellaneous Notes* Telephone Encounter - Ilene Stewart LPN - 06/02/2022 5:19 PM EDT Patient notified. Verbalized understanding. * Telephone Encounter - Chriss Cruz MD - 06/02/2022 5:02 PM EDT Ok. Stay on same meds and see them then. * Telephone Encounter - Abimbola Marion RN - 06/02/2022 4:25 PM EDT Patient returned call and given provider's message below. Patient reports he sees nephrology on 06-09-22. * Telephone Encounter - Ilene Stewart LPN - 06/02/2022 4:04 PM EDT Left message to return call * Telephone Encounter - Chriss Cruz MD - 06/02/2022 2:58 PM EDT Bp [...] PCP. Alia Villegas LPN documented in this encounterTrinity Health System10-06-2022 History of Present illness Narrative* Alia [...] PCP. Alia Villegas LPN documented in this encounterTrinity Health System09-07-2022 Miscellaneous Notes* Telephone Encounter - Germaine Huffman Ma - 05/04/2022 10:06 AM EDT Called and spoke with Mother, Louis and gave her all information below. Verbalized understanding. Scheduled 1 mo BP check with Nurse on 06/02/22. Germaine Huffman Ma * Telephone Encounter - Chriss Cruz MD - 05/04/2022 9:42 AM EDT Increase [...] PCP. Alia Villegas LPN documented in this encounterTrinity Health System09-07-2022 History of Present illness Narrative* Alia [...] PCP. Alia Villegas LPN documented in this encounterTrinity Health System08-12-2022 Miscellaneous Notes* Telephone Encounter - Tabatha [...] patient. Tabatha Bernal Pss documented in this encounterTrinity Health System08-03-2022 History of Present illness Narrative* Chriss Cruz MD - 03/30/2022 10:51 AM EDT Patient [...] Was having worsening renal function and hyperkalemia. Anna was held until could get into nephrology. [...] See Lindsay's last note: He went to [place] [facility] on 02/04. 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 [place] like was going to pass out. Did [...] to the car, had dizziness. Proceeded to [facility]. He had reproducible vertiginous symptoms and nystagmus with Louis-Hallpike. Refers that he had meclizine and phenergan. [...] to 5 tabs a day prn. omega 3-mjg-ulv-fish oil 300-400-1,000 mg cap Take 1 capsule by mouth once daily. Multivitamin capsule Take 1 capsule by mouth once daily. 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 from pancreatitis. Villous adenoma [...] 154/82 Pulse 73 Ht 172.7 cm (5' 8) Wt 97 kg (213 lb 12.8 oz) [...] risks of not doing so in detail. Chriss Cruz MD bp check in [facility] RTO in I six months documented in this encounterTrinity Health System06-27-2022 Miscellaneous Notes* Telephone Encounter - Sujey Albarran LPN - 02/21/2022 1:35 PM EDT See telephone note from 02/10. * Telephone Encounter - Roberto Anderson - 02/09/2022 5:04 PM EDT I attempted to contact patient to discuss xray results. No answer. Left message for patient to contact me to discuss Roberto Anderson DPM documented in this encounterTrinity Health System06-16-2022 Miscellaneous Notes* Telephone Encounter - Roberto [...] week Roberto Anderson DPM documented in this encounterTrinity Health System06-15-2022 Instructions* Patient Instructions* Roberto Anderson - 02/09/2022 1:29 PM EDT Continue with betadine between left 4th and 5th toe Apply lambs wool to prevent rubbing Repeat xrays today. Wear surgcial shoe Apply betadine between right 4th and 5th toe Consider using toe spacer on right documented in this encounterTrinity Health System06-15-2022 History of Present illness Narrative* Roberto [...] (A) 4.2 - 5.6 % Final Comment: Location:[facility] [place], [address] Point of care (POC) Hemoglobin A1c (HGBA1C) [...] specific diabetes management situations: The POC device margarine churn operator provides a normal range of 4.2% to 6.5% for the HGBA1C POC test. However, the [place] [employer] guidelines indicate that patients with [...] that alter red blood cell lifespan. 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 from pancreatitis. Villous adenoma [...] four times a day, IDDM, E11.65 Insulin Jericho, Disposable, (PEN NEEDLES) 31 gauge x 1/4 [...] (Patient not taking: Reported on 02/04/2022) omega 9-orf-tag-fish oil 300-400-1,000 mg cap Take 1 capsule [...] breakdown of skin (HCC) (primary encounter diagnosis) (S92.515D) Closed nondisplaced fracture of proximal phalanx of [...] was at last visit. documented in this encounterTrinity Health System06-10-2022 Miscellaneous Notes* Telephone Encounter - Candy Penn APRN.CNP - 02/04/2022 3:52 PM EDT Message reviewed [...] increase in symptoms. Transportneeded to take to [place] [facility]. Paramedics arrived at 1153. Assessment and hand off report. [facility] deemed stable [facility], and provider at bedside to assist. Time: 1147 BP: 137/79 P: 52 O2 98% RA Patient reports that he took 1 Vicodin at 0800 for Toe Pain, but has taken this in the past with noissues. 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 Problem list updated. Thank you * Telephone Encounter - Didi Garcia LPN - 02/04/2022 9:03 AM EDT [facility] HM Updated. documented in this encounterTrinity Health System06-06-2022 History of Present illness Narrative* Lisette [...] his toe 3 weeks ago. Seen in [facility] ER on 01/26 with xrays showing L [...] Specialist appointment needs: No appointment necessary Lisette Lovell DO January 31, 2022 documented in this encounterTrinity Health System06-06-2022 Miscellaneous Notes* Telephone Encounter - Roberto [...] ED Roberto Anderson DPM documented in this encounterTrinity Health System06-03-2022 Instructions* Patient Instructions* Roberto Anderson - [...] (or decreased sensation in your feet) a gold miner should always cut your toenails. Be Careful [...] Go to your health care provider or gold miner to treat these conditions. documented in this encounterTrinity Health System06-03-2022 History of Present illness Narrative* RT [...] 28, 2022 2:45 PM documented in this encounterTrinity Health System06-03-2022 History of Present illness Narrative* Roberto Anderson - 01/28/2022 1:42 PM EDT Subjective: Patient presents to clinic c/o painful toenails. They state that the nails are especially painful with shoe gear and pressure. Patient states that nails 1-5 b/l are painful. Patient reports that he recently noticed pain and swelling in left 4th toe. He presented to the [facility] emergency room and had xrays taken. xrays [...] measure: Medication Comments: Hydrocodone/elevation documented in this encounterTrinity Health System05-12-2022 Miscellaneous Notes* Telephone Encounter - Brooklyn Cortez Pss - 01/06/2022 11:27 AM EDT Patient has [...] notify patient. Brooklyn Briceno documented in this encounterTrinity Health System04-29-2022 Miscellaneous Notes* Telephone Encounter - Leo [...] of his refill request. documented in this encounterTrinity Health System04-29-2022 Miscellaneous Notes* Telephone Encounter - Sarah Howard LPN - 12/24/2021 12:06 PM EDT Notified patient of lab results. * Telephone Encounter - Sarah Howard LPN - 12/23/2021 1:15 PM EDT CEA not available in [facility] system. Dr Trevin aware. Results faxed to Dr Ibarra. Await final result before calling patient. * Telephone Encounter - Chriss Cruz MD - 12/23/2021 8:45 AM EDT Anemia is stable potassium is ok. . CEA looks ok but I need to see what his last one was. Can we pull he ceas from [facility] computer for me to see documented in this encounterTrinity Health System04-19-2022 Miscellaneous Notes* Telephone Encounter - Linda [...] PA-C * Telephone Encounter - Alia Villegas LPN - 12/14/2021 10:14 AM EDT Manual Readin/88 [...] would be contacted after review by Dr vocational teacher. Alia Villegas LPN documented in this encounterTrinity Health System04-19-2022 History of Present illness Narrative* Alia [...] would be contacted after review by Dr vocational teacher. Alia Villegas LPN documented in this encounterTrinity Health System04-07-2022 Miscellaneous Notes* Telephone Encounter - Kassie [...] daily IF CrCl <30 Kassie Melchor PharmD, [facility] Primary Care Clinical Pharmacist [facility] * Telephone Encounter - Linda Baxter Ma [...] Thanks, Donte Amos PA-C documented in this encounterTrinity Health System04-05-2022 Miscellaneous Notes* Telephone Encounter - Linda Bxater Ma - 11/30/2021 10:54 AM EDT Pt will be seen today. Closing encounter. Linda Baxetr Ma * Telephone Encounter - Dave Wallace LPN - 11/29/2021 1:54 PM EDT TC to pt, left message to return call to office. Dave Wallace LPN * Telephone Encounter - Chriss Cruz MD - 11/29/2021 1:32 PM EDT Ok. [...] Donte at 3pm. * Telephone Encounter - Chriss Cruz MD - 11/29/2021 11:34 AM EDT Cut it to 5 mg a day. Have bp check this week * Telephone Encounter - Nannette Huerta RN - 11/29/2021 10:50 AM EDT Patient's mother calls and states that patient was seen in [facility] ER on Monday. Mother reports that patient does not have DVT, but ED told her that the cause of the swelling was that amlodipine dosageis too high. Mother all asking for guidance in regards to this. Please review and advise, Nannette Huerta RN documented in this encounterTrinity Health System04-02-2022 History of Present illness Narrative* Chriss Cruz MD - 11/27/2021 10:58 AM EDT Patient [...] car last weekend down and back to [place]. No injury. Just began yesterday. Was very [...] labs below. We had also stopped his anna inhibitor due to his hyperkalemia that had [...] 6.9 down to 5 after holding his anna. Both and and I have recommended nephrology follow up. bp is up today. Had not stopped his lisinopril. His sodium is lower as well. He is also on tegretol which may be contributing. He is seeing Dr. Rm on 12/17. Discussed that stopping the anna will likely help with his electrolyte abnormalities. [...] Abs Lymph 1.00 - 4.00 k/uL 1.62 [place]% % 7.1 Abs [place]redell <0.87 k/uL 0.31 Eosin% % 1.8 Abs [...] to 5 tabs a day prn. omega 9-ufi-obw-fish oil 300-400-1,000 mg cap Take 1 capsule by mouth once daily. Multivitamin capsule Take 1 capsule by mouth once daily. alcohol swabs padm Use 8 swabs daily TO CHECK BLOOD SUGAR AND FOR INSULIN INJECTIONS blood sugar diagnostic (FREESTYLE LITE STRIPS) test strip TEST four times a day, IDDM, E11.65 Insulin Jericho, Disposable, (PEN NEEDLES) 31 gauge x 1/4 [...] episode, unspecified [facility] Microalbuminuria on anna Mixed hyperlipidemia Seizure disorder (HCC) Negative EEG [...] the ER. He agreeable to go to [facility]. Will communicate via ER Passport and [...] - improving since we have held his anna. Will need to follow bp Has appt with nephrology and renal artery us coming up. Has previous renal us. Will continue to follow closely. Attempt to get better control of his bp. 5. Hyperkalemia - ICD9: 276.7, ICD10: E87.5 - Improved significantly since holding his anna inhibitor. Was consistently above 5.0 until stopped. [...] ICD9: 729.5, ICD10: M79.605 - as above. Chriss Cruz bp check in two weeks. Keep next appt or prn Medical Decision Making documented in this encounterTrinity Health System04-02-2022 Miscellaneous Notes* Telephone Encounter - Linda Baxter Ma - 11/27/2021 9:33 AM EDT When calling patient to advise of lab results, pt says his leg has been swelling all night and today. Will not go down, appt made for pt to come in * Telephone Encounter - Chriss Cruz MD - 11/26/2021 5:20 PM EDT His [...] labs to his oncologist. documented in this encounterTrinity Health System03-30-2022 History of Present illness Narrative* Chriss Cruz MD - 11/24/2021 9:09 AM EDT Patient presents with: ED Follow-up HPI: Patient presents today for office visit for follow up., Sent to er for significant hyperkalemia. Recheck over the weekend was from 6.9 down to 5 after holding his anna. Both and and I have recommended nephrology follow up. bp is up today. Had not stopped his lisinopril. His sodium is lower as well. He is also on tegretol which may be contributing. He is seeing Dr. Rm on 12/17. Discussed that stopping the anna will likely help with his electrolyte abnormalities. [...] to 5 tabs a day prn. omega 2-qvy-bgi-fish oil 300-400-1,000 mg cap Take 1 capsule by mouth once daily. Multivitamin capsule Take 1 capsule by mouth once daily. alcohol swabs padm Use 8 swabs daily TO CHECK BLOOD SUGAR AND FOR INSULIN INJECTIONS blood sugar diagnostic (FREESTYLE LITE STRIPS) test strip TEST four times a day, IDDM, E11.65 Insulin Jericho, Disposable, (PEN NEEDLES) 31 gauge x 1/4 [...] episode, unspecified [facility] Microalbuminuria on anna Mixed hyperlipidemia Seizure disorder (HCC) Negative EEG [...] following a low fat, low cholesterol diet. Chriss Cruz documented in this encounterCleveland [id number] Miscellaneous Notes* Telephone Encounter - Chriss Cruz MD - 11/22/2021 11:57 AM EDT Repeat was 5.0 after stopping anna. * Telephone Encounter - Sarah Howard LPN - 11/22/2021 11:56 AM EDT On desk to review. * Telephone Encounter - Chriss Cruz MD - 11/22/2021 10:57 AM EDT Can we obtain the ER report for me to review * Telephone Encounter - Didi Steele LPN - 11/22/2021 10:50 AM EDT Pt calling to notify pcp he did go to [facility] ED yest 11/21/21. Pt states he received potassium IV then was sent home. Pt was instructed to FU with pcp in 3-5 days. Pt scheduled 11/24/21 for ED FU. Didi Steele LPN documented in this encounterTrinity Health System03-25-2022 Miscellaneous Notes* Telephone Encounter - Chriss Cruz MD - 11/19/2021 5:18 PM EDT Had [...] he will not go, at least in [facility]. He is fully aware of my recommendations andthat not following my advice can lead to . * Telephone Encounter - Jessica Friedman RN - 11/19/2021 4:38 PM EDT Pt called and is notified of providers message and instructions. Pt states he thinks it's from the Amlodipine working his kidneys too hard. Pt states he is in [place] right now and can't go to the hospital. He states, I don't know where it is, and my friend wouldn't let me.. I told the Pt that the provider encouraged him to go to the ER because his kidneys weren't functioning well. Let Pt knowhe could look the hospitals in his area up. He is not going to go to the ER, he said he will call provider back on Monday when he is back in town. Jessica Friedman RN * Telephone Encounter - Linda Baxter [...] Linda Baxter Ma * Telephone Encounter - Chriss Cruz MD - 11/19/2021 3:42 PM EDT We need to try and call him again before we leave * Telephone Encounter - Leigh Daily LPN - 11/19/2021 3:09 PM EDT TC to pt. Left a detailed message on a secure line with updates. Both lines, mobile and home. Leigh Daily LPN * Telephone Encounter - Chriss Cruz MD - 11/19/2021 3:00 PM EDT His repeat potassium is 6.9 which is life threatening. He needs to go immediately to the ER. We aregoing to have to treat it to bring it down documented in this encounterTrinity Health System03-25-2022 Miscellaneous Notes* Telephone Encounter - Gini Hogan Ma - 11/19/2021 11:35 AM EDT Pt contact notified and will relay message to patient. Gini Hogan Ma * Telephone Encounter - Chriss Cruz MD - 11/19/2021 9:56 AM EDT Repeat [...] PCP. Alia Villegas LPN documented in this encounterTrinity Health System03-25-2022 History of Present illness Narrative* Alia [...] PCP. Alia Villegas LPN documented in this encounterTrinity Health System06-04-2021 NoteHNO ID: [id number] Author: Ernesto Myao APRN.COMMERCIAL CENSUS TAKER Service: ? Author Type: Nurse Practitioner Type: [...] male from [place] who presents to the [facility] outpatient neurology department with a chief complaint [...] 1 ML INJECTIONS EVERY 2 WEEKS omega 7-gjs-der-fish oil 300-400-1,000 mg cap Take 1 capsule by mouth once daily. Multivitamin capsule Take 1 capsule by mouth once daily. alcohol swabs padm Use 8 swabs daily TO CHECK BLOOD SUGAR AND FOR INSULIN INJECTIONS blood sugar diagnostic (FREESTYLE LITE STRIPS) test strip TEST four times a day, IDDM, E11.65 Insulin Jericho, Disposable, (PEN NEEDLES) 31 gauge x 1/4 [...] disease - Asthma - Chronic pancreatitis (HCC) 2003 - Colon cancer (HCC) - Dandy-Walker syndrome variant (HCC) - Esophageal reflux - Hypertension - Hypogonadism in male - Major depressive disorder, rec (more content not included)...[facility]04-15-2021 NoteHNO ID: [id number] Author: Liyah Still Service: ? Author Type: Physician Type: Progress Notes Filed: 12/10/2020 10:29 PM Note Text: [facility] EPILEPSY CLINIC NOTE - RETURN VISIT Chief [...] to seizures 01/13/2020 and 02/04/2020 (left face pulsating) lasting 3-5 hours. At 03/20/2020 visit he was continued on CBZ 800 BID (per med list) and asked to return in 6 months. BMP was ordered for hyponatremia. History per patient today (12/10/2020): Four seizures in 2020: 08/2019, 01/13/2020, 02/04/2020 and 06/19/2020, triggered by missing doses; was not using pillbox. Always goes to [facility] ED for seizures; given Dilaudid and something else. Each seizure lasts about 5 hours, left face and arm twitching. He remains aware, is able to talk. One seizure in 2020 so far: 11/14/2020, seen in [facility]. After IV meds, seizure subsides within 15-20 minutes typically. History of colon cancer in 2013, s/p resection, has port. 12/03/2020 - Dr. Cruz reduced CBZ from 800 BID to 600 [...] were normal. MRI brain was normal at [facility] in 2019. Current AED: CBZ 600 BID [...] to the house. 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 EXAM [...] BID] Takes CBZ 10A (more content not included)...[facility] 06-03-2014 History of Past illness Narrative* Problem [...] of this encounter (statuses as of 11/19/2021) [facility] of [facility] illness Narrative* Problem [...] of this encounter (statuses as of 11/19/2021) [facility] of [facility] illness Narrative* Problem [...] of this encounter (statuses as of 11/22/2021) [facility] Narrative* Problem [...] of this encounter (statuses as of 11/24/2021) [facility] Narrative* Problem [...] of this encounter (statuses as of 11/27/2021) [facility] Narrative* Problem [...] of this encounter (statuses as of 11/27/2021) [facility] Narrative* Problem [...] of this encounter (statuses as of 11/30/2021) [facility] Narrative* Problem [...] of this encounter (statuses as of 12/01/2021) [facility] Narrative* Problem [...] of this encounter (statuses as of 12/03/2021) [facility] Narrative* Problem [...] of this encounter (statuses as of 12/14/2021) [facility] Narrative* Problem [...] of this encounter (statuses as of 12/15/2021) [facility] Narrative* Problem [...] of this encounter (statuses as of 12/24/2021) [facility] Narrative* Problem [...] of this encounter (statuses as of 12/24/2021) [facility] Narrative* Problem [...] of this encounter (statuses as of 01/06/2022) [facility] Narrative* Problem [...] of this encounter (statuses as of 01/29/2022) [facility] Narrative* Problem [...] of this encounter (statuses as of 01/29/2022) [facility] Narrative* Problem [...] of this encounter (statuses as of 01/31/2022) [facility] Narrative* Problem [...] of this encounter (statuses as of 02/04/2022) [facility] Narrative* Problem [...] of this encounter (statuses as of 02/07/2022) [facility] Narrative* Problem [...] of this encounter (statuses as of 02/09/2022) [facility] Narrative* Problem [...] of this encounter (statuses as of 02/10/2022) [facility] Narrative* Problem [...] of this encounter (statuses as of 02/21/2022) [facility] Narrative* Problem [...] of this encounter (statuses as of 03/30/2022) [facility] Narrative* Problem [...] of this encounter (statuses as of 04/11/2022) [facility] Narrative* Problem [...] of this encounter (statuses as of 05/04/2022) [facility] Narrative* Problem [...] of this encounter (statuses as of 05/04/2022) [facility] Narrative* Problem [...] of this encounter (statuses as of 06/02/2022) [facility] Narrative* Problem [...] of this encounter (statuses as of 06/02/2022) [facility] Narrative* Problem [...] of this encounter (statuses as of 06/03/2022) [facility] Narrative* Problem [...] of this encounter (statuses as of 06/17/2022) [facility] Narrative* Problem [...] of this encounter (statuses as of 07/08/2022) [facility] Narrative* Problem [...] of this encounter (statuses as of 08/27/2022) [facility] Narrative* Problem [...] of this encounter (statuses as of 09/21/2022) [facility] Narrative* Problem [...] of this encounter (statuses as of 10/06/2022) [facility] Narrative* Problem [...] of this encounter (statuses as of 11/28/2022) [facility] Narrative* Problem [...] of this encounter (statuses as of 12/01/2022) [facility]ative* Problem [...] of this encounter (statuses as of 12/02/2022) [facility] Narrative* Problem [...] of this encounter (statuses as of 12/09/2022) [facility]ative* Problem [...] of this encounter (statuses as of 12/29/2022) [facility] N[facility]ative* Problem [...] of this encounter (statuses as of 02/01/2023) [facility]* Problem [...] of this encounter (statuses as of 02/09/2023) [facility] Narrative* Problem [...] of this encounter (statuses as of 05/30/2023) [facility] Narrative* Problem [...] of this encounter (statuses as of 06/23/2023) [facility] Dr. Hogan [facility] November 23, 2022 12:55pm Note Date/Time November 23, 2022 11: 37am [facility] Medical Records Department [address] [place] [id number] Emergency Department Summary 11/23/22 MR#: [id number] Acct: [id number] Name: REGINALDO HUFFMAN Rep #:[id number] : [id number] From: Galdino Hogan MD PCP: Dr. Chriss Cruz MD Status:ADM I [place] Location: [address] History of Present Illness Chief Complaint: Syncope Informant: patient and parent Onset/Context/Timing Onset: Today Context: Sudden Onset Timing: Continuous Current Severity: Gone Maximum Severity: Moderate Narrative Narrative: 52-year-old male history of diabetes, hypertension and trigeminal neuralgia. Reportedly per his mom he had a syncopal episode today at home and lasted maybe 5 minutes. Said he had some mild dizziness and nausea before it happened. He was upright sitting when it occurred. No fall no injury. No seizure activity. No chest pain or shortness of breath. He is on no blood thinners. He has had multiple syncopal events in the past without any specific diagnosis. He has hadno recent illness or any recent hospitalization. He has no cardiac history. Prior similar symptoms: Yes Recent Illness/Hospitalization: No [facility] Medical History Alcohol abuse Anemia Asthma Cancer Carpal tunnel syndrome Depressive disorder Diabetes type 2, controlled GERD (gastroesophageal reflux disease) Hepatitis C High cholesterol History of alcohol abuse History of colon cancer HTN (hypertension) Hx of vertigo Hypoglycemia Neuropathy Obesity Pancreatitis portacath placement Seizure disorder Therapeutic drug monitoring Trigeminal nerve disorder Home Medications cholecalciferol (vitamin D3) 25 mcg (1,000 unit) capsule 1,000 unit PO DAILY 10/10/13 [History Last Taken 11/13/15] sertraline 100 mg tablet 100 mg PO DAILY 07/18/14 [History Last Taken 11/13/15] multivitamin with folic acid 400 mcg tablet 1 tab PO DAILY 10/21/14 [History Last Taken 11/13/15] cyanocobalamin (vitamin B-12) 500 mcg tablet 500 mcg PO DAILY@0800 11/24/16 [History Last Taken Unknown] rosuvastatin 40 mg tablet 40 mg PO DAILY 11/24/16 [History Last Taken Unknown] atenolol 50 mg tablet 50 mg PO BID 02/14/18 [History Last Taken Unknown] fish oil-dha-epa 1,200 mg-144 mg-216 mg capsule 1 each PO DAILY 11/14/20 [History Last Taken Unknown] aripiprazole 2 mg tablet (Abilify) 2 mg PO DAILY 12/24/20 [History Last Taken Unknown] insulin glargine 100 unit/mL (3 mL) subcutaneous pen (Basaglar KwikPen U-100 Insulin) 45 unit subcut .QAM & HS 05/20/21 [History Last Taken Unknown] insulin lispro 100 unit/mL subcutaneous pen (Admelog SoloStar U-100 Insulin lispro) 36 unit subcut .QID 05/20/21 [History Last Taken Unknown] lisinopril 40 mg tablet 40 mg PO DAILY 05/20/21 [History Last Taken Unknown] omeprazole 20 mg capsule,delayed release 20 mg PO DAILY 08/10/21 [History Last Taken Unknown] meclizine 25 mg tablet 25 mg PO TID PRN dizziness #30 tabs 02/13/22 [Rx Last Taken Unknown] doxazosin 4 mg tablet 4 mg PO DAILY 05/10/22 [History Last Taken Unknown] carbamazepine 200 mg tablet 600 mg PO BID #540 tabs 11/02/22 [Rx Last Taken Unknown] furosemide 20 mg tablet 20 mg PO DAILY 11/02/22 [History Last Taken Unknown] Allergy/AdvReac Type Severity Reaction Status Date / Time erythromycin base AdvReac Severe Hives Verified 11/23/22 11:06 loratadine [From Claritin] AdvReac Severe Rash Verified 11/23/22 11:06 Family History Grandmother Cervical cancer Diabetes Hypertension Trigeminal neuralgia Mother Uterine cancer Arthritis Diabetes Hypertension Grandfather Heart disease Arthritis Diabetes Hypertension Unknown Diabetes Arthritis Father Arthritis Diabetes Hypertension Sister Diabetes Hypertension Uncle CVA (cerebral vascular accident) Aunt Cerebral aneurysm Surgical History H/O left hemicolectomy Hx of appendectomy Social History Smoking Status: Former smoker Tobacco: How many years used: 20 how long ago did patient quit smoking: quit 2003 second hand exposure: No alcohol intake: former details: quit 2003 substance use type: former substance user Date of last use: Used Marijuana since he was a teenager ROS ROS ED ROS Narrative No recent illness. Review of Systems ROS Unobtainable: Denies due to encephalopathy Constitutional Constitutional ED: Denies chills or fever(s) Eyes Eyes: Denies blurry vision ENT ENT ED: Denies ear pain Cardiovascular Cardiovascular: Denies chest pain Respiratory/Chest Respiratory/Chest: Denies cough or dyspnea Gastrointestinal Gastrointestinal: Denies abdominal pain, constipation, diarrhea, melena, nausea or vomiting Genitourinary Genitourinary ED: Denies dysuria or hematuria Musculoskeletal Musculoskeletal: Denies arthralgias Integumentary Denies abscess Neurologic Neurologic: Denies headache(s) Psychiatric Psychiatric: Denies anxiety Endocrine Endocrinology: Denies cold intolerance Hematologic/Lymphatic Hematologic/Lymphatic: Reports none Allergic/Immunologic Allergic/Immunologic ED: Denies mouth swelling or tongue swelling EXAM Physical Exam Narrative Exam Narrative: 52-year-old male no acute distress. Vital signs stable afebrile. Pulse ox 100%on room air. Blood pressure 114/74. He does not look septic toxic or in any distress. He is awake alert sitting upright in bed. Mother is at bedside. H EENT exam unremarkable. Pupils round react light. No facial trauma. No droop. Normal speech. Neck nontender. Lungs clear. Heart regular rhythm rate about 70 no murmur. Chest wall nontender. Abdomen soft nontender. Moving all 4 extremities. 5 out of 5 control room technician strength. Dorsi plantarflexion intact. Normal range of motion. Nontender no deformity. Back nontender. Neurologically is awake and alert. Answering questions following commands. NIH score is 0. Normal neurologic exam. Const Vital Signs: 11/23/22 11:07 11/23/22 11:11 11/23/22 11:29 Temperature 96.6 F L Temperature Source Temporal Pulse Rate 73 Respiratory Rate 18 Respiratory Effort Normal Non-Labored Respiratory Pattern Normal Blood Pressure 114/74 Blood Pressure Mean 87 Pulse Ox 100 Oxygen Delivery Method Room Air Room Air 11/23/22 12:30 Temperature 97.6 F L Temperature Source Temporal Pulse Rate 70 Respiratory Rate 14 Respiratory Effort Respiratory Pattern Blood Pressure 113/60 Blood Pressure Mean 77 Pulse Ox 100 Oxygen Delivery Method Room Air Positive well nourished and well developed; Negative for cachectic, contracturesor unkempt General Appearance ED: well developed and NAD; Negative for unkempt, cachectic, contractures, cyanotic or diaphoretic Nutritional Appearance: Negative for cachectic HEENT Reports moist mucous membranes; Denies dry mucous membranes Negative for trauma or tenderness Mouth ED: No dry mucous membranes Mouth: No dry mucous membranes Eyes PERRL and EOMs intact bilaterally General Eye ED: Negative for pale conjunctiva or scleral icterus Neck no lymphadenopathy, supple and no JVD General: Negative for tenderness Lymph Lymphatic: Negative for other Chest Wall inspection of chest normal and palpation of chest normal Chest: Negative for other Resp normal respiratory effort and clear to auscultation bilaterally Effort and Inspection: Negative for retractions Auscultation: Negative for rales, rhonchi or wheezes Cardio regular rate, regular rhythm, S1 normal heart sound, S2 normal heart sound and no murmurs GI normal to inspection, nondistended, normoactive bowel sounds, non-tender, non-distended and no masses Inspection: Negative for abdominal distention Palpation: soft; Negative for tender Back/Spine Negative for no CVA tenderness General Back: Negative for CVA tenderness Cervical Spine: Negative for cervical spine tenderness Thoracic Spine / Upper Back: Negative for thoracic spinal tenderness Lumbar Spine / Lower Back: Negative for lumbar spinal tenderness Extremity normal to inspection General Extremety ED: Negative for edema or tenderness General Extremity: Negative for edema Neuro oriented x3, CN's II-XII intact bilaterally and no sensory deficits noted Sensorium / Orientation: alert; Negative for orientation impaired, lethargic or stuporous Motor Exam: strength 5/5 throughout Psych mental status grossly normal Appearance: Negative for unkempt Attitude: No agitated Mood & Affect: Negative for depressed, anxious or tearful Skin no rashes or lesions noted, no wounds and skin turgor normal Lesions: No lesion noted Rashes: No rashes noted Trauma: Negative for abrasion Wounds: Negative for wounds noted MDM MDM MDM Narrative Medical decision making narrative: 52-year-old male with a syncopal episode. Is a completely normal exam at this time. Has had multiple syncopal events in the past without any specific diagnosis. He has no cardiac history. Will undergo cardiac work-up. Orthostatic vital signs. He has a mild headache he will be given Tylenol. Repeat exam patient is doing well at 12:25 PM. His anemia is significantly worsened from last April is now down to 6.3 he is symptomatic with it. I donot know what specifically related or not to his syncope today but I think he needs transfused. I have ordered a type and cross for 2 units. I have the hospitalist on page for admission. History & Record Review Discussion w/independent historian: Patient and Family Lab Data Attestation: I reviewed the patient's lab results. Lab results narrative: Chest x-ray showed no acute abnormality. CBC shows a white count of 4.6. H&H is 6.3 and 19. Consistent with significantanemia. Platelet count 154. Electrolytes show sodium 134 gap of 5 BUN of 44 creatinine 2.27. Glucose is elevated at 336. Troponin is normal at 13. Comparing this to his old labs his renal insufficiency is chronic he had a priorcreatinine 2.59. He has a worsening anemia he was 9.6 around last April andhas progressively gone down and now is 6.3. Orthostatic vital signs lying were 128/67 with a heart rate of 71. Sitting 119/68 with a heart rate of 74. And patient attempted to stand get dizzy and sat down so they were not completed. Labs: Laboratory Results - last 24 hr 11/23/22 11/23/22 11/23/22 11:37 11:37 12:36 WBC 4.6 RBC 2.07 L Hgb 6.3 L Hct 19.0 L MCV 91.8 MCH 30.4 MCHC 33.2 RDW Std Deviation 43.8 RDW Coeff of Ever 13.6 Plt Count 154 MPV 10.8 Immature Gran % (Auto) 1.300 H Neut % (Auto) 65.2 Lymph % (Auto) 25.6 [place] % (Auto) 6.0 Eos % (Auto) 1.5 Baso % (Auto) 0.4 Absolute Neuts (auto) 3.0 Absolute Lymphs (auto) 1.19 Nucleated RBC % 0 Sodium 134 L Potassium 5.1 Chloride 108 H Carbon Dioxide 21.0 Anion Gap 5 BUN 44 H Creatinine 2.27 H Estim Creat Clear Calc 35.99 Est GFR (MDRD) Af Amer 39 L Est GFR (MDRD) Non-Af 32 L BUN/Creatinine Ratio 19.4 Glucose 336 H Calcium 7.3 L Troponin I High Sens 13 Crossmatch See Detail Radiography Chest X-Ray - ED: 1 View, Read by ED Physician, Normal, Heart, Lungs, Mediastinum and Bony Structures Diagnostic Testing: Clinical Impression(s) from Imaging Studies Chest X-Ray 11/23/22 11:29 IMPRESSION: Stable chest no visualized focal infiltrate. Electronically Signed: Irma Cervantes MD at 12:49 EDT , Chest x-ray, portable, single view, interpreted by myself shows no acute abnormality. Normal cardiac silhouette. No infiltrates. Left sided med port. Rhythm Strip Rhythm Strip: Sinus Rhythm Rate: 72 Ectopy: None EKG Initial EKG: Attestation: I personally reviewed and interpreted this EKG as follows: Interpretation: Sinus Rhythm and No Acute Injury Pattern Comments: Normal sinus rhythm rate of 72 no acute signs of [place] or ischemia. No change from prior EKG from October of last year. Prior EKG tracings: available for review Prior: Unchanged Discharge Plan Dx/Rx/DC Orders Clinical Impression: Syncope, Anemia, History of diabetes mellitus Disposition Disposition: Acute Care [facility] What to do if you have Problems For any increased pain, shortness of breath, bleeding, nausea or vomiting, chestpain, or any unexpected problems, contact your Primary Care Provider. Call [facility] ([phone]) or report to the closest Emergency Room. Call 911 if necessary. 11/23/22 1255 <Electronically signed by Galdino Hogan MD> Cosigner Signature (if applicable): CC: Dr. Chriss Cruz MD ~ Signed [facility] Work Phone: Discharge summary Author Alfredo Ag [facility] December 09, 2023 11:07am Note Date/Time December 09, 2023 10: 59am [facility] Medical Records Department [address] [place] [id number] Instructions for Home/Discharge Instructions 12/09/23 1058 MR#: [id number] Acct: [id number] Name: REGINALDO HUFFMAN Rep #:[id number] : 1970 53 From: Alfredo Ag DO PCP: Luciana Garcia DO Status:ADM I N Discharge Instructions Diet Discharge Diet: 1800 Calorie Control Diet Activity Discharge Activity: Return to Normal Activity Weight Bearing Status: Full weight bearing Follow Up Care Test Results: Test results from this visit will be discussed in further detail at your follow- up appointment, if applicable. Discharge Plan Admission Admit Date/Time: 12/07/23 21:11 Primary Reason for Your Visit: Acute kidney injury, hyperkalemia Attending Provider: Aflredo Ag Primary Care Provider: Luciana Garcia Consulting Providers: Jamaal Rm; Landry Barber Discharge Orders/Prescriptions Prescriptions: New amlodipine 10 mg Tablet 10 mg PO DAILY Qty: 30 0RF benzonatate 100 mg Capsule 200 mg PO TID PRN PRN (Reason: cough) Qty: 0 0RF hydralazine 50 mg Tablet 50 mg PO TID Qty: 90 0RF aripiprazole 2 mg Tablet 2 mg PO DAILY Qty: 0 0RF nadolol 20 mg Tablet 20 mg PO BID Qty: 0 0RF Continued insulin glargine [Basaglar KwikPen U-100 Insulin] 100 unit/mL (3 mL) insulin pen 25 unit subcut .QAM & HS insulin lispro [Admelog SoloStar U-100 Insulin] 100 unit/mL insulin pen 30 unit subcut TID carbamazepine 200 mg tablet 600 mg PO BID Qty: 180 11RF cholecalciferol (vitamin D3) 1,000 UNIT capsule 1,000 unit PO DAILY Patient Comments: VITAMIN sertraline 100 MG tablet 100 mg PO DAILY multivitamin with folic acid 1 TABLET tablet 1 tab PO DAILY fish oil-dha-epa 1 EACH capsule 1 each PO DAILY pantoprazole 20 mg tablet,delayed release (DR/EC) 40 mg PO Q12H Qty: 60 3RF gemfibrozil 600 mg tablet 600 mg PO BID albuterol sulfate [Ventolin HFA] 90 mcg/actuation HFA aerosol inhaler 1 - 2 puff inhalation Q4H PRN PRN (Reason: Wheezing) Qty: 1 0RF rosuvastatin 40 MG tablet 40 mg PO DAILY Discontinued lisinopril 40 mg tablet 40 mg PO QHS furosemide 20 mg tablet 10 mg PO Q12H lisinopril 10 mg tablet 10 mg PO .QAM nadolol 40 mg tablet 40 mg PO BID nadolol 20 mg tablet 40 mg PO .bid Referrals / Follow Up: Jamaal Rm MD [Med Staff - Consulting] - Within 2 Weeks Luciana Garcia DO [Primary Care Provider] - Disposition Disposition (needs filled in before D/C Order can be placed): Home, Self Care 12/09/23 1107<Electronically signed by Alfredo Ag DO>Alfredo Ag DO CC: Dr. Landry Barber DO; Dr. Jamaal Rm MD; Luciana Garcia DO ~ Signed [facility] Work Phone: Discharge summary Author Alfredo Ag [facility] December 09, 2023 11:12am Note Date/Time December 09, 2023 11: 12am [facility] [place] [facility] Medical Records Department [address] [place] [address] Discharge Summary 12/09/23 1107 MR#: [id number] Acct: [id number] Name: REGINALDO HUFFMAN Rep #:[id number] : 1970 53 From: Alfredo Ag DO PCP: Luciana Garcia DO Status:ADM I N Location: [place] [address] Providers Date of Admission: 12/07/23 Date of Discharge: 12/09/23 Primary Care Physician: Luciana Garcia DO Consultations 12/07/23 21:57 Consult: Nephrology Routine Consulting Provider: Jamaal Rm Reason for Consult: Acute kidney with hyperkalemia injury in the setting of CKD; stage IV. EMERGENT Consult: No MD Notified: Yes Date Notified: 12/08/23 Time Notified: 06:32 Method of Notification: Answering Service Reason For Visit: PEDRO LUIS WITH HYPERKALEMIA IN THE SETTING OF CKD; Diagnosis Discharge Diagnosis (1) Hyperkalemia: Status: Acute Code(s): E87.5 - Hyperkalemia Plan 1. Acute kidney injury-patient's kidney function is improved with administration of fluids, continue fluids #2 hyperkalemia on outpatient labs-in reviewing the patient's medical records, this appears to be isolated, labs will be monitored, patient's potassium is normal presently #3 chronic kidney disease stage IV-patient is being followed by nephrology, complicates care, management, recovery, and prognosis #4 hypertensive urgency-patient's blood pressure will be monitored, blood pressure medicines will be adjusted if needed Total clinical time spent by myself addressing the patient's medical issues, reviewing all of his data, and collaborating with patient's care team: 35 minutes Medications at Discharge Home Medications cholecalciferol (vitamin D3) 25 mcg (1,000 unit) capsule 1,000 unit PO DAILY supplement 10/10/13 sertraline 100 mg tablet 100 mg PO DAILY depression 07/18/14 multivitamin with folic acid 400 mcg tablet 1 tab PO DAILY supplement 10/21/14 rosuvastatin 40 mg tablet 40 mg PO DAILY cholesterol 11/24/16 fish oil-dha-epa 1,200 mg-144 mg-216 mg capsule 1 each PO DAILY supplement 11/14/20 insulin glargine 100 unit/mL (3 mL) subcutaneous pen (Basaglar KwikPen U-100 Insulin) 25 unit subcut .QAM & HS diabetes 02/03/23 insulin lispro 100 unit/mL subcutaneous pen (Admelog SoloStar U-100 Insulin lispro) 30 unit subcut TID blood glucose 02/03/23 carbamazepine 200 mg tablet 600 mg (3 x 200 mg) PO BID #180 tabs 07/12/23 pantoprazole 20 mg tablet,delayed release 40 mg (2 x 20 mg) PO Q12H #60 tabs 08/02/23 albuterol sulfate 90 mcg/actuation aerosol inhaler (Ventolin HFA) 1 - 2 puff inhalation Q4H PRN PRN Wheezing #1 inh 10/16/23 gemfibrozil 600 mg tablet 600 mg PO BID pancreatitis prevention 12/08/23 amlodipine 10 mg tablet 10 mg PO DAILY #30 tabs 12/09/23 aripiprazole 2 mg tablet 2 mg PO DAILY #0 tabs 12/09/23 benzonatate 100 mg capsule 200 mg (2 x 100 mg) PO TID PRN PRN cough #0 caps 12/09/23 hydralazine 50 mg tablet 50 mg PO TID #90 tabs 12/09/23 nadolol 20 mg tablet 20 mg PO BID #0 tabs 12/09/23 Hospital Course Operations None Procedures None Summary of Care Provided Minutes Spent on Discharge: 31 Hospital Course: This 53-year-old white male was seen in the emergency room at [facility] due to abnormal labs which showed an elevated potassium of 5.8, he was referred to the emergency room for evaluation. Labs obtained in the emergency room showed a normal white blood cell count, hemoglobin was low at 8.6, potassium was normal at 4.7, creatinine was elevated at 4.39 and BUN was 39. Patient was admitted to PCU for acute kidney injury on a backdrop of stage IV chronic kidney disease and anemia, he was seen in consultation by nephrology, his ANNA inhibitor was stopped and his other medications were adjusted. Patient's blood pressure was elevated during his hospitalization and his blood pressure medication was adjusted. Patient did have significant proteinuria and it was felt that as an outpatient he would need to go back on lisinopril, this medicine was stopped during his hospitalization and he was not to resume it as an outpatient until he talked with nephrology. Patient's lab improved during his hospitalization, on 12/09/2023, patient was seen and examined: On examination he appeared in good health and spirits. Vital signs as documented. Skin warm and dry and without overt rashes. Neck without JVD, neck was supple, trachea midline, thyroid was normal. Lungs clear bilaterally, normal air movement was noted. Heart exam notable for regular rhythm, normal sounds and absence of murmurs, rubs or gallops. Abdomen unremarkable and without evidence of organomegaly, masses, or abdominal aortic enlargement. Bowel sounds are present, abdomen is not distended. Extremities nonedematous, no cyanosis was noted, no clubbing was noted. Neuro: Cranial nerves II through XII are grossly intact, no focal motor deficits were noted, sensation to light touch and pinprick intact, motor exam 5/5 throughout. Psych:Patient is alert and oriented x3, he does not appear anxious or depressed, he does not appear agitated. Patient appears stable for discharge on 12/09/2023, I talked with nephrology prior to his discharge on that date. Weight / BMI Weight Weight: 90.7 kg Body Mass Index (BMI) 30.4 ABG / Lab / Microbiology Data 12/08/23 07:36 12/09/23 03:20 Laboratory: Laboratory Results - last 24 hr 12/08/23 11:47: POC Glucose 109 H 12/08/23 16:25: POC Glucose 56 L 12/08/23 17:20: POC Glucose 81 12/08/23 18:00: Urine Color Yellow, Urine Clarity Clear, Urine pH 6.0, Ur Specific [place] 1.015, Urine Protein 500 H, Urine Glucose (UA) 50 H, Urine Ketones Negative, Urine Occult Blood 10 H, Urine Nitrite Negative, Urine Bilirubin Negative, Urine Urobilinogen Normal, Ur Leukocyte Esterase Negative, Urine RBC 0-5 SEEN, Urine WBC 0-5 SEEN, Ur Squamous Epith Cells 0 SEEN, Urine Bacteria 0 SEEN, Urine Mucus 0 SEEN 12/08/23 22:31: POC Glucose 128 H 12/09/23 03:20: Sodium 140, Potassium 4.5, Chloride 115 H, Carbon Dioxide 19.0 L, BUN 35 H, Creatinine 3.89 H, Estim Creat Clear Calc 23.51, Est GFR (MDRD) Af Amer 21 L, Est GFR (MDRD) Non-Af 17 L, BUN/Creatinine Ratio 9.0 L, Glucose 114 H, Calcium 7.9 L, Phosphorus 4.4, Albumin 2.2 L 12/09/23 07:51: POC Glucose 172 H Radiography Diagnostic Testing: Radiology Impression Renal Ultrasound 12/08/23 00:42 IMPRESSION: Bilateral simple benign-appearing renal cysts. Electronically Signed: Steve Holguin MD at 12:27 EDT , D/C Instructions Discharge Diet: 1800 Calorie Control Diet Weight Bearing Status: Full weight bearing Meaningful Use Info Meaningful Use Diagnoses (Choose all that apply): None applicable Discharge Plan Admission Admit Date/Time: 12/07/23 21:11 Primary Reason for Your Visit: Acute kidney injury, hyperkalemia Attending Provider: Alfredo Ag Primary Care Provider: Luciana Garcia Consulting Providers: Jamaal Rm; Landry Barber Discharge Orders/Prescriptions Prescriptions: New amlodipine 10 mg Tablet 10 mg PO DAILY Qty: 30 0RF benzonatate 100 mg Capsule 200 mg PO TID PRN PRN (Reason: cough) Qty: 0 0RF hydralazine 50 mg Tablet 50 mg PO TID Qty: 90 0RF aripiprazole 2 mg Tablet 2 mg PO DAILY Qty: 0 0RF nadolol 20 mg Tablet 20 mg PO BID Qty: 0 0RF Continued insulin glargine [Basaglar KwikPen U-100 Insulin] 100 unit/mL (3 mL) insulin pen 25 unit subcut .QAM & HS insulin lispro [Admelog SoloStar U-100 Insulin] 100 unit/mL insulin pen 30 unit subcut TID carbamazepine 200 mg tablet 600 mg PO BID Qty: 180 11RF cholecalciferol (vitamin D3) 1,000 UNIT capsule 1,000 unit PO DAILY Patient Comments: VITAMIN sertraline 100 MG tablet 100 mg PO DAILY multivitamin with folic acid 1 TABLET tablet 1 tab PO DAILY fish oil-dha-epa 1 EACH capsule 1 each PO DAILY pantoprazole 20 mg tablet,delayed release (DR/EC) 40 mg PO Q12H Qty: 60 3RF gemfibrozil 600 mg tablet 600 mg PO BID albuterol sulfate [Ventolin HFA] 90 mcg/actuation HFA aerosol inhaler 1 - 2 puff inhalation Q4H PRN PRN (Reason: Wheezing) Qty: 1 0RF rosuvastatin 40 MG tablet 40 mg PO DAILY Discontinued lisinopril 40 mg tablet 40 mg PO QHS furosemide 20 mg tablet 10 mg PO Q12H lisinopril 10 mg tablet 10 mg PO .QAM nadolol 40 mg tablet 40 mg PO BID nadolol 20 mg tablet 40 mg PO .bid Referrals / Follow Up: Jamaal Rm MD [Med Staff - Consulting] - Within 2 Weeks Luciana Garcia DO [Primary Care Provider] - Disposition Disposition (needs filled in before D/C Order can be placed): Home, Self Care Charges/Coding Visit Charges Inpatient E&M: 50957 Disch Hosp >30min 12/09/23 1112 <Electronically signed by Alfredo Ag DO> Cosigner Signature (if applicable): CC: Dr. Alfredo Ag DO; Luciana Garcia DO~ Signed [facility] Work Phone: Evaluation note* Diagnosis Essential hypertension- Primary Unspecified essential [facility] Diagnosis Hyperkalemia- Primary Hyperpotassemia Primary hypertension [...] Unspecified essential hypertension [facility] Diagnosis Anemia, unspecified type- Primary Renal insufficiency Unspecified disorder of kidney and ureter [facility] Diagnosis Edema of left lower leg- [...] Unspecified essential hypertension [facility] Essential hypertension Unspecified essential hypertension [facility] Diagnosis Acute renal disease- Primary Unspecified disorder of kidney and ureter [facility] Diagnosis Moderate episode of recurrent major depressive disorder (HCC) [facility]* Diagnosis Onset Date Resolution Status 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 [facility] Work Phone: Evaluation note* Diagnosis Type 1 diabetes mellitus with [...] foot, initial encounter [facility] Osteomyelitis of toe (HCC) Unspecified osteomyelitis, ankle and foot [facility] Diagnosis 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, limited to breakdown of skin (HCC)- Primary [facility] Diagnosis Skin ulcer, limited to breakdown of skin (HCC)- Primary [facility]* Diagnosis 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, with long-term current use of insulin (HCC) [facility]* Diagnosis OPENED IN ERROR- Primary To allow closing an encounter opened in error (used in SmartSet) [facility]* Diagnosis 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, limited to breakdown of skin (HCC)- Primary Closed nondisplaced fracture of proximal phalanx of lesser toe of left foot with routine healing, subsequent encounter [facility] Diagnosis Onset Date Resolution Status History of colon cancer [facility]ryan Essential tremor acute Hyponatremia acute Polyneuropathy acute Trigeminal neuralgia chronic [facility] Work Phone: Evaluation note* Diagnosis Essential hypertension- Primary Unspecified essential [...] Anemia, unspecified type [facility] Essential hypertension- Primary Unspecified essential hypertension [facility] Diagnosis Essential hypertension Unspecified essential hypertension Primary hypertension Unspecified essential hypertension [facility] Diagnosis Onset Date Resolution Status Essential tremor acute Hyponatremia acute Polyneuropathy acute Trigeminal neuralgia chronic 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 bryan Anemia chronic 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 bryan [facility] Work Phone: Evaluation note* Diagnosis Essential hypertension- Primary Unspecified essential [facility] Diagnosis Hypertension due to endocrine disorder Moderate episode of recurrent major depressive disorder (HCC) Recurrent seizures (HCC) Other forms of epilepsy and recurrent seizures without mention of intractable epilepsy [facility] Diagnosis Type 1 diabetes mellitus with [...] unspecified obesity type [facility] Diagnosis URI, acute- Primary Acute upper respiratory infections of unspecified site [facility] Diagnosis Type 1 diabetes mellitus with [...] neoplasm of prostate documented in this encounter [facility] note* Diagnosis Seizure disorder (HCC)- Primary Unspecified [...] unspecified single disease documented in this encounter [facility] note* Diagnosis Onset Date Resolution Status 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 bryan Essential tremor chronic Polyneuropathy chronic Trigeminal neuralgia chronic Anemia chronic 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 bryan [facility] Work Phone: Evaluation note* Diagnosis Onset Date Resolution Status Essential tremor chronic Polyneuropathy chronic Trigeminal neuralgia chronic Anemia chronic 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 bryan 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 bryan Anemia acute History of diabetes mellitus acute Syncope acute [facility] Work Phone: Evaluation note* Diagnosis Onset Date Resolution Status Essential tremor chronic Polyneuropathy chronic Trigeminal neuralgia chronic Anemia chronic 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 bryan 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 bryan Anemia acute History of diabetes mellitus acute Syncope acute Varices of esophagus determined by endoscopy [facility] Work Phone: Evaluation note* Diagnosis Gastrointestinal hemorrhage, unspecified gastrointestinal [...] blood loss (chronic) documented in this encounter [facility] note* Diagnosis Gastrointestinal hemorrhage, unspecified gastrointestinal hemorrhage type- Primary Hypertension due to endocrine disorder Mixed hyperlipidemia Seizure disorder (HCC) Unspecified epilepsy without mention of intractable epilepsy Stage 3a chronic kidney disease (HCC) [facility] Diagnosis Polyneuropathy- Primary Unspecified hereditary and idiopathic peripheral neuropathy Moderate episode of recurrent major depressive disorder (HCC) Stage 3a chronic kidney disease (HCC) Essential hypertension Unspecified essential hypertension [facility] Diagnosis Onset Date Resolution Status Anemia chronic 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 bryan Subepithelial esophageal lesion acute 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 Anemia chronic 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 bryan CKD (chronic kidney disease) chronic Diabetes 1.5, managed as type 1 chronic Neuropathy chronic Obesity chronic Anemia in chronic kidney disease chronic 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 bryan Hypertension chronic Anemia in chronic kidney disease chronic 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 Anemia in chronic kidney disease chronic 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 bryan Hypertension chronic 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 [facility] Work Phone: Evaluation note* Diagnosis Stage 3a chronic kidney disease (HCC) [facility] Diagnosis Onset Date Resolution Status Anemia in chronic kidney disease chronic 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 bryan Hypertension chronic CKD (chronic kidney disease) chronic Diabetes 1.5, managed as type 1 chronic Hypertension chronic Microalbuminuria chronic Obesity chronic Anemia in chronic kidney disease chronic 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 bryan Anemia in chronic kidney disease chronic 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 bryan Hypertension chronic Anemia in chronic kidney disease chronic 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 bryan Hypertension chronic 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 bryan Essential tremor chronic Trigeminal neuralgia chronic Anemia in chronic kidney disease chronic 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 bryan Loose stools chronic Subepithelial esophageal lesion [facility] Work Phone: Evaluation note* Diagnosis Onset Date Resolution Status Essential tremor chronic Trigeminal neuralgia chronic Anemia in chronic kidney disease chronic 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 bryan Loose stools chronic Subepithelial esophageal lesion [facility] Work Phone: Evaluation note* Diagnosis Onset Date Resolution Status Anemia in chronic kidney disease chronic 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 bryan Hypertension chronic CKD (chronic kidney disease) chronic Diabetes 1.5, managed as type 1 chronic Hypertension chronic Microalbuminuria chronic Obesity chronic Polyneuropathy chronic Acute kidney injury acute Anemia in chronic illness [facility] Work Phone: Evaluation note* Diagnosis Onset Date Resolution Status Anemia in chronic kidney disease chronic 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 bryan Hypertension chronic CKD (chronic kidney disease) chronic Diabetes 1.5, managed as type 1 chronic Hypertension chronic Microalbuminuria chronic Obesity chronic Polyneuropathy chronic Acute kidney injury acute Hyperkalemia acute Hypertensive urgency acute Anemia in chronic illness ch maciic Chronic kidney disease, stage IV (severe) chronic [facility] Work Phone: Evaluation note* Diagnosis Onset Date Resolution Status Anemia in chronic kidney disease chronic 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 bryan Hypertension chronic CKD (chronic kidney disease) chronic Diabetes 1.5, managed as type 1 chronic Hypertension chronic Microalbuminuria chronic Obesity chronic Polyneuropathy chronic Acute kidney injury acute Hyperkalemia acute Hypertensive urgency acute Anemia in chronic illness ch ronic Chronic kidney disease, stage IV (severe) chronic GERD (gastroesophageal reflux disease) acute Anemia in chronic kidney disease chronic 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 bryan Loose stools chronic Subepithelial esophageal lesion [facility] Work Phone: Evaluation note* Diagnosis Onset Date Resolution Status Anemia in chronic kidney disease chronic 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 bryan Hypertension chronic CKD (chronic kidney disease) chronic Diabetes 1.5, managed as type 1 chronic Hypertension chronic Microalbuminuria chronic Obesity chronic Polyneuropathy chronic Anemia in chronic illness ch ronic Chronic kidney disease, stage IV (severe) chronic Acute kidney injury resolved Hyperkalemia resolved Hypertensive urgency resolve d GERD (gastroesophageal reflux disease) acute Anemia in chronic kidney disease chronic 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 bryan Loose stools chronic Subepithelial esophageal lesion [facility] Work Phone: Evaluation note* Diagnosis ESRD on dialysis (HCC)- Primary End stage renal disease Pre-transplant evaluation for ESRD (end stage renal disease) Other specified pre-operative examination Hypertension, unspecified type [facility] Diagnosis Pre-transplant evaluation for kidney transplant- Primary Other specified pre-operative examination [facility] Diagnosis ESRD (end stage renal disease) on dialysis- Primary End stage renal disease Pre-transplant evaluation for kidney transplant Diabetic nephropathy associated with type 2 diabetes mellitus Pre-transplant evaluation for kidney transplant [facility] Diagnosis [facility]plant evaluation for kidney transplant [facility] Diagnosis Pre-transplant evaluation for kidney transplant- Primary [facility] Diagnosis Pre-transplant evaluation for kidney transplant ESRD (end stage renal disease) on dialysis End stage renal disease [facility] Diagnosis Pre-operative cardiovascular examination- Primary Pre-transplant evaluation for kidney transplant ESRD (end stage renal disease) on dialysis End stage renal disease [facility] Diagnosis Pre-transplant evaluation for kidney transplant ESRD (end stage renal disease) on dialysis End stage renal disease [facility] Diagnosis Hepatosplenomegaly- Primary Other chronic nonalcoholic liver disease Liver lesion Other specified disorders of liver Secondary esophageal varices with bleeding Esophageal varices with bleeding in diseases classified elsewhere [facility] Diagnosis Hepatic fibrosis Cirrhosis of liver without mention of alcohol [facility] Diagnosis Liver lesion- Primary Other specified disorders of liver Portal hypertension [facility] Diagnosis Hepatosplenomegaly Other chronic nonalcoholic liver disease Liver lesion Other specified disorders of liver [facility] this encounter [facility] Author Dr. Renae [facility] November 23, 2022 1:14pm Note Date/Time November 23, 2022 1:1 4pm [facility] Medical Records Department [address] [place] [address] H&P Exam - Hospitalist 11/23/22 1307 MR#: [id number] Acct: [id number] Name: REGINALDO HUFFMAN Rep #:[id number] : 1970 52 From: Maria Antonia Renae MD PCP: Dr. Chriss Cruz MD Status:ADM I NO Location: [place] [address]- [id number] HPI - General General Date of Admission: 11/23/22 Date of Service: 11/23/22 HPI Narrative REGINALDO HUFFMAN, is a 52 M with history of trigeminal neuralgia, depression, vertigo, type 2 diabetes mellitus, colon cancer status post resection chemo radiation in 2013, hypertension who presented to [facility] 11/23/2022 after syncopal episode. In the ED he was found to have a hemoglobin of 6.3 and hospitalist consulted for admission. He reportedly has a history of anemia and recently started to shots to help his hemoglobin a week ago through Dr. Ibarra's office though he is not sure which injection this was but said it wasat the suggestion of his director digital communications. He had been in his usual health until this morning. He got up and went to the bathroom and then went to his living room, he became somewhat lightheaded and sat down on the bench and then lost consciousness. Mother at bedside reports he was out for about 5 minutes but hadno shaking or other noted activity. He was not confused when he woke up. Has had some headaches off and on lately, does report history of vertigo and initially thought that that was this but denies ever passing out without before. Denies chest pain or shortness of breath. No numbness weakness or tingling. No recent rashes, bruising, bleeding. Shortly after his syncopal episode he didhave some dizziness and nausea for about 15 to 20 minutes and that is resolved. Had not had any GI upset before or after. [facility] Medical History Alcohol abuse Anemia Asthma Cancer Carpal tunnel syndrome Depressive disorder Diabetes type 2, controlled GERD (gastroesophageal reflux disease) Hepatitis C High cholesterol History of alcohol abuse History of colon cancer HTN (hypertension) Hx of vertigo Hypoglycemia Neuropathy Obesity Pancreatitis portacath placement Seizure disorder Therapeutic drug monitoring Trigeminal nerve disorder Home Medications cholecalciferol (vitamin D3) 25 mcg (1,000 unit) capsule 1,000 unit PO DAILY 10/10/13 [History Last Taken 11/13/15] sertraline 100 mg tablet 100 mg PO DAILY 07/18/14 [History Last Taken 11/13/15] multivitamin with folic acid 400 mcg tablet 1 tab PO DAILY 10/21/14 [History Last Taken 11/13/15] cyanocobalamin (vitamin B-12) 500 mcg tablet 500 mcg PO DAILY@0800 11/24/16 [History Last Taken Unknown] rosuvastatin 40 mg tablet 40 mg PO DAILY 11/24/16 [History Last Taken Unknown] atenolol 50 mg tablet 50 mg PO BID 02/14/18 [History Last Taken Unknown] fish oil-dha-epa 1,200 mg-144 mg-216 mg capsule 1 each PO DAILY 11/14/20 [History Last Taken Unknown] aripiprazole 2 mg tablet (Abilify) 2 mg PO DAILY 12/24/20 [History Last Taken Unknown] insulin glargine 100 unit/mL (3 mL) subcutaneous pen (Basaglar KwikPen U-100 Insulin) 45 unit subcut .QAM & HS 05/20/21 [History Last Taken Unknown] insulin lispro 100 unit/mL subcutaneous pen (Admelog SoloStar U-100 Insulin lispro) 36 unit subcut .QID 05/20/21 [History Last Taken Unknown] lisinopril 40 mg tablet 40 mg PO DAILY 05/20/21 [History Last Taken Unknown] omeprazole 20 mg capsule,delayed release 20 mg PO DAILY 08/10/21 [History Last Taken Unknown] meclizine 25 mg tablet 25 mg PO TID PRN dizziness #30 tabs 02/13/22 [Rx Last Taken Unknown] doxazosin 4 mg tablet 4 mg PO DAILY 05/10/22 [History Last Taken Unknown] carbamazepine 200 mg tablet 600 mg PO BID #540 tabs 11/02/22 [Rx Last Taken Unknown] furosemide 20 mg tablet 20 mg PO DAILY 11/02/22 [History Last Taken Unknown] Allergy/AdvReac Type Severity Reaction Status Date / Time erythromycin base AdvReac Severe Hives Verified 11/23/22 11:06 loratadine [From Claritin] AdvReac Severe Rash Verified 11/23/22 11:06 Family History Grandmother Cervical cancer Diabetes Hypertension Trigeminal neuralgia Mother Uterine cancer Arthritis Diabetes Hypertension Grandfather Heart disease Arthritis Diabetes Hypertension Unknown Diabetes Arthritis Father Arthritis Diabetes Hypertension Sister Diabetes Hypertension Uncle CVA (cerebral vascular accident) Aunt Cerebral aneurysm Surgical History H/O left hemicolectomy Hx of appendectomy Social History Smoking Status: Former smoker Tobacco: How many years used: 20 how long ago did patient quit smoking: quit 2003 second hand exposure: No alcohol intake: former details: quit 2003 substance use type: former substance user Date of last use: Used Marijuana since he was a teenager Vital Signs Vital Signs Vital Signs: 11/23/22 11:07 11/23/22 11:11 11/23/22 11:29 Temperature 96.6 F L Temperature Source Temporal Pulse Rate 73 Pulse Rate [Lying] Respiratory Rate 18 Respiratory Effort Normal Non-Labored Respiratory Pattern Normal Blood Pressure 114/74 Blood Pressure [Lying] Blood Pressure [Sitting (for 1 minute prior to obtaining)] Blood Pressure Mean 87 Blood Pressure Mean [Lying] Blood Pressure Mean [Sitting (for 1 minute prior to obtaining)] Pulse Ox 100 Oxygen Delivery Method Room Air Room Air 11/23/22 12:48 11/23/22 12:30 Temperature 97.6 F L Temperature Source Temporal Pulse Rate 70 Pulse Rate [Lying] 71 Respiratory Rate 14 Respiratory Effort Respiratory Pattern Blood Pressure 113/60 Blood Pressure [Lying] 128/67 H Blood Pressure [Sitting (for 1 minute prior to obtaining)] 119/68 Blood Pressure Mean 77 Blood Pressure Mean [Lying] 87 Blood Pressure Mean [Sitting (for 1 minute prior to obtaining)] 85 Pulse Ox 100 Oxygen Delivery Method Room Air Weight Weight: 98.3 kg Body Mass Index (BMI) 32.8 Results Lab / Micro Data Result Diagrams: 11/23/22 11:37 11/23/22 11:37 Labs: Laboratory Results - last 24 hr 11/23/22 11:37: WBC 4.6, RBC 2.07 L, Hgb 6.3 L, Hct 19.0 L, MCV 91.8, MCH 30.4, MCHC 33.2, RDW Std Deviation 43.8, RDW Coeff of Ever 13.6, Plt Count 154, MPV 10.8, Immature Gran % (Auto) 1.300 H, Neut % (Auto) 65.2, Lymph % (Auto) 25.6, [place] % (Auto) 6.0, Eos % (Auto) 1.5, Baso % (Auto) 0.4, Absolute Neuts (auto) 3.0, Absolute Lymphs (auto) 1.19, Nucleated RBC % 0 11/23/22 11:37: Sodium 134 L, Potassium 5.1, Chloride 108 H, Carbon Dioxide 21.0, Anion Gap 5, BUN 44 H, Creatinine 2.27 H, Estim Creat Clear Calc 35.99, Est GFR (MDRD) Af Amer 39 L, Est GFR (MDRD) Non-Af 32 L, BUN/Creatinine Ratio 19.4, Glucose 336 H, Calcium 7.3 L, Troponin I High Sens 13 11/23/22 12:36: Crossmatch See Detail Rhythm Strip Rhythm Strip: Sinus Rhythm Rate: 72 Ectopy: None Radiology Impression Chest X-Ray 11/23/22 11:29 IMPRESSION: Stable chest no visualized focal infiltrate. Electronically Signed: Irma Cervantes MD at 12:49 EDT , Assessment & Plan Assessment/Plan (1) Syncope: PLAN: Plan #Sycnopal episode -admit to telemetry -Suspect orthostatic secondary to low hemoglobin -We will transfuse 2 unit of packed red blood cells as well as hydration -EGK NSR, no blocks -CT head ordered -orthostatic vital signs +, pt quite symptomatic when standing and had to sit back down -will obtain echo -Holter monitor on d/c if no arrhythmia detected -EEG ordered given how long patient was down, though less likely seizure with patient on Tegretol -Hold Lasix and doxazosin #Acute on Chronic Anemia/history of colon cancer status postresection and chemoradiation in 2013 -IVPPI -stool occult -type and cross- transfuse 2u prbc -Has had chronic downtrend in his hemoglobin but reports no recent upper or lower endoscopies -If FOBT positive will consult GI -Follows with Dr. Ibarra as an outpatient and was recently started on an injectionto help his hemoglobin #DMII -glucose checks and SSI -Long-acting insulin continued at slightly lower dose as well as his 4 times daily lispro at lower dose in addition to the sliding scale #CKD stage IIIb -Appears to be close to baseline -Follows with Dr. Rm as an outpatient #Depression -Continue Abilify and Tegretol #DVT ppx: SCDs Maria Antonia Renae MD Time spent in the patient's overall evaluation,decision-making process, review of diagnostic data, adjustment of management, discussion with other providers, nursing nursing and ancillary staff involved in patient's care documentation, 60minutes Charges/Coding Visit Charges Inpatient E&M: 20311 Init Hosp L2 11/23/22 1314 <Electronically signed by Maria Antonia Renae MD> Cosigner Signature (if applicable): CC: Dr. Maria Antonia Renae MD; Dr. Chriss Cruz MD~ Signed [facility] Work Phone: Hospital Discharge instructions Additional Instructions Continue take your regular medicines as prescribed. You do have influenza A which likely explains your acute symptoms. You been given inhaler as well as some cough medicine to help with your symptoms. If your breathing worsens please return to the emergency room. I recommend taking [id number] Coricidin HBP for [id number] cold and flu medicine as will not affect her blood pressure.[facility] Work Phone: Hospital Discharge instructions Additional Instructions Your creatinine today was 4.0. You need to continue to follow-up outpatient. [facility] Work Phone: Progress note Author Grisel Timmons [facility] Note Date/Time June 18, 2025 1 2:37pm [facility] [address] [place] [address] OFFICE VISIT Date of Service: 06/18/25 MR#: [id number] Acct: [id number] Name: REGINALDO HUFFMAN Rep #: [id number] : 1970 Provider: SERGE Timmons Age/Sex: 54/M Location: [facility] Status: Signed Intake Vital Signs 12/18/24 10:33 06/04/25 08:21 06/18/25 10:44 Height 5 ft 8 in 5 ft 8 in 5 ft 8 in Weight: 203 lb BMI 30.9 BP 145/75 H Blood Pressure Location Lt brachial Position Sitting Pulse 66 Pulse Source Monitor Pulse Oximetry (%) 98 Oxygen Delivery Method room air Intake Visit Reasons: 6 M FU Chief Complaint: f/u diabetes Design Eng 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 Accompanied by: Self Is patient in pain?: Yes (Right Foot) Pain scale (1-10): 6 Allergies doxazosin (From Cardura) Allergy (Severe, Verified 06/18/25 10:47) Bleeding erythromycin base Allergy (Severe, Verified 06/18/25 10:47) Hives loratadine (From Claritin) Allergy (Severe, Verified 06/18/25 10:47) Rash amlodipine Adverse Reaction (Verified 06/18/25 10:47) nausea/diarrhea/dizziness Medications ?Medication ?Instructions ?Recorded ?Confirmed ?Type cholecalciferol (vitamin D3) 25 1,000 unit PO TUTHSA s upplement 10/10/13 06/18/25 History mcg (1,000 unit) capsule sertraline 100 mg tablet 100 mg PO QHS depression 06/18/25 History multivitamin with folic acid 400 1 tab PO DAILY supple ment 10/21/14 06/18/25 History mcg tablet rosuvastatin 40 mg tablet 40 mg PO QHS cholesterol 06/18/25 History fish oil-dha-epa 1,200 mg-144 1 each PO DAILY suppleme nt 11/14/20 06/18/25 History mg-216 mg capsule albuterol sulfate 90 mcg/actuation 1 - 2 puff inhalati on Q4H PRN PRN 10/16/23 06/18/25 Rx aerosol inhaler (Ventolin HFA) Wheezing #1 inh gemfibrozil 600 mg tablet 600 mg PO BID pancreatitis 0 12/08/23 06/18/25 History prevention nadolol 40 mg tablet 40 mg PO BID heart 12/18/23 06/18/25 History calcitriol 0.5 mcg capsule 0.5 mcg PO DAILY bone healt h 05/30/24 06/18/25 History clonidine HCl 0.1 mg tablet 0.1 mg PO TID hypertension 06/12/24 06/18/25 History ergocalciferol (vitamin D2) 1,250 1,250 mcg PO MOWEFR VITAMIN 07/03/24 06/18/25 History mcg (50,000 unit) capsule aripiprazole 2 mg tablet 2 mg PO QHS mental health 06/18/25 History losartan 50 mg tablet 50 mg PO DAILY 30 days #30 t abs 07/10/24 06/18/25 Rx blood sugar diagnostic (OneTouch #100 ea 10/31/2405/29 Rx Verio test strips) blood-glucose meter (OneTouch #1 ea 10/31/24 06/18/25 Rx Verio Reflect kit) pantoprazole 20 mg tablet,delayed 40 mg (2 x 20 mg) PO DAILY reflux 11/19/24 06/18/25 Rx release #90 TABLETS insulin lispro 100 unit/mL 18 unit (0.18 mL) subcut TI D #60 mL 12/11/24 06/18/25 Rx subcutaneous pen (Admelog SoloStar U-100 Insulin lispro) insulin glargine 100 unit/mL (3 25 unit (0.25 mL) subc ut ONCE 12/18/24 06/18/25 Rx mL) subcutaneous pen (Lantus diabetes #22.5 mL Solostar U-100 Insulin) pen needle, diabetic 31 gauge x #100 ea 12/18/2406/18 Rx 5/16 (Comfort EZ Pen [place]) carbamazepine 200 mg tablet 600 mg (3 x 200 mg) PO BID 04/21/25 06/18/25 Rx seizures #540 tabs gabapentin 300 mg capsule 300 mg PO BID #60 caps 04/2106/18/25 Rx trazodone 50 mg tablet 50 mg PO QHS PRN insomnia #3 0 tabs 04/21/25 06/18/25 Rx cholestyramine 4 gram oral powder 4 g PO HS #239.4 gra ms 05/07/25 06/18/25 Rx (Cholestyramine Light) sucroferric oxyhydroxide 500 mg 500 mg PO QAC 05/07/25 06/18/25 History chewable tablet (Velphoro) clopidogrel 75 mg tablet (Plavix) 75 mg PO DAILY #30 t abs 06/04/25 06/18/25 Rx hydralazine 50 mg tablet 50 mg PO TID 06/04/25 History aspirin 81 mg tablet,delayed 81 mg PO QDAY 06/18/25 History release (Adult Aspirin Regimen) [facility] Medical History (Updated 06/18/25 @ 12:46 by SERGE Mujica) Vascular dialysis catheter in place History of hemodialysis History of renal dialysis Hemodialysis patient Anemia due to chronic blood loss Positive fecal occult blood test Cancer Insulin dependent diabetes mellitus History of renal disease Low iron Easy bruising Wears glasses Arthritis Fatty liver Restless legs Former smoker Leg cramps History of edema History of stress test History of echocardiogram Syncope Hx of vertigo Therapeutic drug monitoring History of colon cancer Trigeminal nerve disorder portacath placement GERD (gastroesophageal reflux disease) High cholesterol Hepatitis C Depressive disorder Obesity Seizure disorder Asthma History of alcohol abuse Pancreatitis Sezary disease Surgical History Hx of esophagogastroduodenoscopy Hx of appendectomy H/O left hemicolectomy Family History Grandmother Cervical cancer Diabetes Hypertension Trigeminal neuralgia Mother Uterine cancer Arthritis Diabetes Hypertension Grandfather Heart disease Arthritis Diabetes Hypertension Unknown Diabetes Arthritis Father Arthritis Diabetes Hypertension Sister Diabetes Hypertension Uncle CVA (cerebral vascular accident) Aunt Cerebral aneurysm Social History Smoking Status: Former smoker Tobacco: How many years used: 20 how long ago did patient quit smoking: quit 2003 second hand exposure: No alcohol intake: former details: quit 2003 substance use type: former substance user Date of last use: Used Marijuana since he was a teenager HPI HPI Chief Complaint: f/u diabetes Details: REGINALDO HUFFMAN, is a 54 M who presents to the office today for evaluation and management of diabetes. A1C on 05/02/25 was 7.0%, increased from 12/18/24 at 6.3%. Weight is stable. Currently taking basaglar 16 u once daily and Humalog 20 u TIDCM. If blood sugaris low normal prior to breakfast he will skip humalog dose. He is having lows shortly after supper. 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 He denies any significant episode of hypoglycemia that has required assistance from others. BP stable. Currently taking clonidine 0.1 mg TID, hydralazine 50 mg TID, losartan 50 mg once daily, and nadolol 40 mg BID. He has CKD and is on renal dialysis. He takes a daily statin, fibrate, and fish oil. Triglycerides remain elevated. Labs are up to date. Nephrology is monitoring PTHI and vitamin D, I do not have record of these. Denies any acute concerns. ROS Const Constitutional: Positive for fatigue; No weakness, weight change or change in appetite Eyes Eyes: No change in vision ENT ENT: No hearing loss, nasal congestion or difficulty swallowing Cardio Cardiology: No chest pain at rest, chest pain with exertion or shortness of breath Musc Musculoskeletal: No numbness Neuro Neurology: No weakness, memory loss or numbness Psych Psychiatric: No change in appetite, No memory loss and No Thoughts of harming yourself/Others Resp Respiratory: No cough or chest congestion Gastro GI: No difficulty swallowing Genitourinary Male: No burning urination Skin Skin: No itchy eyes or wounds Endo Endocrine: Positive for fatigue; No weight change Aller/Imm Allergy/Immunologic: No itchy eyes Exam Const General: cooperative, healthy appearing, comfortable and no acute distress Nutritional Appearance: obese Orientation: alert, awake and oriented x3 HENMT Head: normal to inspection Ears: hearing grossly normal bilaterally Nose: external nose normal Face and sinus: normal facial exam Eyes General: appearance normal, both eyes and all related structures Alignment and Position: alignment normal Sclera: sclerae normal Neck Neck: normal visual inspection Chest Chest palpation & inspection: normal inspection of the chest Resp Effort & Inspection: normal respiratory effort, able to speak in complete sentences, symmetric chest movement, normal respiratory pattern, no audible wheezes and no cough Auscultation: Bilateral: Clear to Auscultation Cardio Rate: regular rate Rhythm: regular rhythm Heart Sounds: S1 normal, S2 normal and murmur systolic II/, at the left sternal border and at the right sternal border GI Inspection: obesity Musc Cervical Spine: normal cervical lordosis Thoracic/Lumbar Spine: thoracic and lumbar spine normal to inspection Skin General: no rashes or lesions noted Lesions: no lesions Rashes: no rashes Trauma: no lacerations or abrasions Wounds: no wounds Neuro General: patient alert, patient awake and patient oriented x3 Cognition: normal cognition Speech: speech normal Gait: normal gait Extrem General: normal to inspection and no pedal edema Psych Appearance: grossly normal Mental Status: mental status grossly normal Mood: congruent mood Affect: normal affect Speech and Movement: speech and movement normal Attitude: cooperative Thought Process: normal Thought Content: normal Judgment: judgment good Assessment and Plan Assessment and Plan (1) Diabetes 1.5, managed as type 1: Status: Chronic Plan: Chronic- controlled. I reviewed with the patient the risk of developing and worsening of diabetes complications including retinopathy, neuropathy, nephropathy, heart attack, stroke, amputation, and sudden . Diabetes education provided. A1C at goal: <7.5%. Reviewed glucometer readings with patient. Continue basaglar 16 u once daily. Continue Humalog 20 u TIDCM, 18 u with low carb supper. I asked that he check bgl 2 hours after breakfast, if 180 or greater, please take 10 u with breakfast.He is likely having post meal elevations that he is missing. Notify office of persistently high/low blood sugars. Avoid processed carbohydrates. Reviewed most recent labs completed with PCP. The patient was counseled regarding the importance of foot care including daily visual and tactile inspection. The patient was instructed not to go barefoot andto always wear socks with their shoes. Follow up in 6 months. (2) Hypertension: Status: Chronic Qualifiers: Hypertension type: essential hypertension Qualified Code(s): I10 - Essential (primary) hypertension Plan: Chronic- stable. Continue clonidine 0.1 mg TID. Continue hydralazine 50 mg TID. Continue losartan 50 mg once daily. Continue nadolol 40 mg BID. Avoid dietary sodium. Will continue to monitor. 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 Defer to nephrology. (4) Microalbuminuria: Status: Chronic Plan: Chronic- stable. Defer to nephrology. (5) High cholesterol: Status: Chronic Plan: Chronic- controlled. Continue rosuvastatin 40 mg once daily. Increase vegetable intake, choose lean cuts of meat, avoid processed carbohdyrates. (6) High triglycerides: Status: Chronic Plan: Chronic- not well controlled. Continue gemfibrozil 600 mg BID. Continue daily fish oil. Plan otherwise same as above. (7) Vitamin D deficiency: Status: Chronic Plan: Chronic- stability unknown. He will bring labs to our office. Defer to nephrology. (8) Obesity: Status: Chronic Qualifiers: Obesity type: due to excess calories Obesity classification: adult class 1 (BMI 30 - 34.9) Serious obesity comorbidity presence: with serious comorbidity Body mass index: BMI 32.0-32.9 Qualified Code(s): E66.09 - Other obesity due to excess calories; Z68.32 - Body mass index [BMI] 32.0-32.9, adult Plan: Chronic- stable. Encouraged a diet that contains high quality carbohydrates rich in fiber. I have spent [27] minutes today reviewing labs, records and history. Time includes coordinating care, interpretation of tests, discussion with patient's other health care providers via telephone. This also includes time I spent with the patient for exam, treatment plan and education as well as documenting clinical information. 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 Kimberlyn East MD ~ [facility] Work Phone: Reason for referral (narrative)* Outpatient Procedure (Routine) - Authorized Specialty Diagnoses / Procedures Referred By Contlurdes t Referred To [facility] Diagnoses Hyperkalemia Primary hypertension Procedures US RENAL ARTERY UNL VAS LAB DUP-SCAN ARTL SHARMIN ABDL/PEL/SCROT&/RPR ORGN LMT Chriss Cruz MD [address] [place] [address] [facility] [address] [place] [address] Referral ID Status Reason Start Date Expiration Date Visits Requested Visits Authorized [id number] Authorized Auto-Generat ed Referral 11/24/2021 11/24/2022 1 1 [facility] for referral (narrative)* Diagnostic Procedure Only (Urgent) - Closed Specialty Diagnoses / Procedures Referred By Contac t Referred To Contact XR IMAGING Diagnoses Osteomyelitis of toe (HCC) Procedures XR FOOT GENERAL 3V AP/LAT/OBL LEFT RADEX FOOT COMPLETE MINIMUM 3 VIEWS Roberto Anderson[address] [place] [address] Xr Imaging Referral ID Status Reason Start Date Expiration Date V isits Requested Visits Authorized [id number] Closed Auto-Generate d Referral 01/28/2022 02/27/2023 1 1 [facility] for referral (narrative)* Diagnostic Procedure Only (Routine) [...] LEFT RADEX TOE MINIMUM 2 VIEWS Roberto Anderson[address] [place] [address] Xr Imaging Referral ID Status Reason Start Date Expiration Date V isits Requested Visits Authorized [id number] Closed Auto-Generate d Referral 02/09/2022 03/11/2023 1 1 [facility] for referral (narrative)No reason for referral information [facility] Work Phone: Reason for visit Narrative* Diagnostic Procedure Only (Urgent) - Closed Specialty Diagnoses / Procedures Referred By Contac t Referred To Contact XR IMAGING Diagnoses Osteomyelitis of toe (HCC) Procedures XR FOOT GENERAL 3V AP/LAT/OBL LEFT RADEX FOOT COMPLETE MINIMUM 3 VIEWS Roberto Anderson[address] [place] [address] Xr Imaging Referral ID Status Reason Start Date Expiration Date V isits Requested Visits Authorized [id number] Closed Auto-Generate d Referral 01/28/2022 02/27/2023 1 1 [facility] for visit Narrative* MRI/CAT Scan (Routine) - Closed Specialty Diagnoses / Procedures Referred By Kimmy garcía Referred To Contact Diagnoses Pre-transplant evaluation for kidney transplant ESRD (end stage renal disease) on dialysis Procedures CT ANGIO ABDOMINAL AORTA WITH RUNOFF CHG CTA ABDL AORTA&BI ILIOFEM W/CONTRAST&POSTP Tyrese Lange [facility] [address] [place] [address] Phone: tel: fax: Referral ID Status Reason Start Date Expiration Date Visits Re quested Visits Authorized [id number] Closed 11/08/2024 12/03/2025 1 1 [facility] for visit Narrative* Radiology (Routine) - Closed Specialty Diagnoses / Procedures Referred By Kimmy garcía Referred To Contact Echocardiography Diagnoses Pre-transplant evaluation for kidney transplant ESRD (end stage renal disease) on dialysis Procedures ECHOCARDIOGRAM UT ECHO TTHRC R-T 2D W/WOM-MODE COMPL SPEC&COLR D Tyrese Lange [facility] [address] [place] [address] Phone: tel: fax: [facility] [address] [place] [address] Phone: tel: Referral ID Status Reason Start Date Expiration Date Visits Re quested Visits Authorized [id number] Closed 11/08/2024 12/03/2025 1 1 [facility] for visit Narrative* Radiology (Routine) - New Request Specialty Diagnoses / Procedures Referred By Kimmy garcía Referred To Contact Diagnoses Pre-transplant evaluation for kidney transplant ESRD (end stage renal disease) on dialysis Procedures NUC MYOCARD PERF STRESS MIBI PHARM NUC MYOCARD PERF STRESS MIBI EXERCISE CHG MYOCARDIAL SPECT MULTIPLE STUDIES UT CV STRS TST XERS&/OR RX CONT ECG TRCG ONLY CHG MYOCARDIAL SPECT MULTIPLE STUDIES-T UT CV STRS TST XERS&/OR RX CONT ECG I&R ONLY UT CV STRS TST XERS&/OR RX CONT ECG W/O I&R Tyrese Lange [facility] [address] [place] [address] Phone: tel: fax: Referral ID Status Reason Start Date Expiration Date V isits Requested Visits Authorized [id number] New Request 11/08/2024 12/03/2025 1 1 [facility] for visit Narrative* Auth/Cert Specialty Diagnoses / Procedures Referred By Kimmy garcía Referred To Contact Diagnoses Hepatic fibrosis Hepatic fibrosis [K74.00] Procedures CHG HEPATC VNGRPH WDG/FR HEMODYN EVAL RS&I UT TRANSCATHETER BIOPSY CHG TRANSCATHETER BIOPSY RS&I VENOGRAPHY HEPATIC W/HEMODYNM EVALUATION W/S&I BX TRANSCATHETER BX TRANSCATHETER W/ S&I [facility] [address] [place] [address] [facility] [address] [place] [address] Referral ID Status Reason Start Date Expiration Date Visits Re quested Visits Authorized [id number] 1 1 [facility] for visit Narrative* MRI/CAT Scan (Routine) - Closed Specialty Diagnoses / Procedures Referred By Kimmy garcía Referred To Contact Diagnoses Hepatosplenomegaly Liver lesion Procedures CT ABDOMEN WITH AND WITHOUT CONTRAST CHG CT ABDOMEN W/O CONTRAST FLWD BY CONTRAST Lillian Macias DO Phone: tel: fax: Referral ID Status Reason Start Date Expiration Date Visits Re quested Visits Authorized [id number] Closed 12/25/2024 01/19/2026 1 1 [facility] Summary Purpose Family History Relationship Condition Age at Onset Recorded Date/T [place] grandmother Malignant neoplasm of cervix Unknown Diabetes mellitus Unknown Hypertension Unknown Trigeminal neuralgia Unknown mother Malignant neoplasm of uterus Unknown Arthritis Unknown grandfather Cardiac disease Unknown Not Specified Diabetes mellitus Unknown father Arthritis Unknown sister Diabetes mellitus Unknown uncle Cerebrovascular accident (CVA) Unknown aunt Cerebral aneurysm Unknown Relationship Condition Age at Onset Recorded Date/T [place] grandmother Malignant neoplasm of cervix Unknown Diabetes mellitus Unknown Hypertension Unknown Trigeminal neuralgia Unknown mother Malignant neoplasm of uterus Unknown Arthritis Unknown grandfather Cardiac disease Unknown unrelated friend Diabetes mellitus Unknown father Arthritis Unknown sister Diabetes mellitus Unknown uncle Cerebrovascular accident (CVA) Unknown aunt Cerebral aneurysm Unknown Advance Directives Documents on File Type Date Recorded Patient Clinical Practice Consultant Expl anation Advance Directive(s) Advance Directive(s) 05/03/2019 7:09 AM Documents on File Type Date Recorded Patient Clinical Practice Consultant Expl anation Advance Directive(s) Advance Directive(s) 05/03/2019 7:09 AM Advance Directive Response Recorded Date/ Time Name of Medical Power of Life Enrichment Assistant KEVIN mother November 21, 2021 12:42pm Name of Medical Power of Life Enrichment Assistant November 27, 2021 12:16pm Advance Directives No June 12:24pm Living Will No January 26, 2022 3 :16am Power of Life Enrichment Assistant No January 26, 2022 3:16am Documents on File Type Date Recorded Patient Clinical Practice Consultant Expl anation Advance Directive(s) Advance Directive(s) 02/04/2022 1:15 PM Advance Directive(s) 05/03/2019 7:09 AM Documents on File Type Date Recorded Patient Clinical Practice Consultant Expl anation Advance Directive(s) Advance Directive(s) 02/04/2022 1:15 PM Advance Directive(s) 05/03/2019 7:09 AM Advance Directive Response Recorded Date/ Time Name of Medical Power of Life Enrichment Assistant mother BROWN November 21, 2021 12:42pm Name of Medical Power of Life Enrichment Assistant November 27, 2021 12:16pm Name of Medical Power of Life Enrichment Assistant MARIBEL CEDENO February 13, 2022 1:59pm Advance Directives No June 12:24pm Living Will Yes February 13, 2022 1:59pm Power of Life Enrichment Assistant Yes February 13 1:59pm Advance Directive Response Recorded Date/ Time Name of Medical Power of Life Enrichment Assistant MARIBEL MOTHER February 13, 2022 1:59pm Advance Directives No June 12:24pm Living Will Yes February 13, 2022 1:59pm Power of Life Enrichment Assistant Yes February 13 1:59pm Advance Directive Response Recorded Date/ Time Advance Directives No June 11:24am Living Will Yes February 13, 2022 12:59pm Power of Life Enrichment Assistant Yes February 13 12:59pm Advance Directive Response Recorded Date/ Time Advance Directives No June 12:24pm Living Will Yes February 13, 2022 1:59pm Power of Life Enrichment Assistant Yes February 13 1:59pm Advance Directive Response Recorded Date/ Time Name of Medical Power of Life Enrichment Assistant LOUIS HUFFMAN November 23, 2022 11:10am Advance Directives No June 12:24pm Living Will Yes November 23, 2022 11:10am Power of Life Enrichment Assistant Yes November 23 11:10am Advance Directive Response Recorded Date/ Time Name of Medical Power of Life Enrichment Assistant Louis Huffman, jose November 23, 2022 2:27pm Advance Directives No June 12:24pm Living Will Yes November 23, 2022 2:27pm Power of Life Enrichment Assistant Yes November 23 2:27pm Advance Directive Response Recorded Date/ Time Name of Medical Power of Life Enrichment Assistant LOUIS HUFFMAN January 14, 2023 4:31am Advance Directives No June 12:24pm Living Will Yes January 14, 2023 4 :31am Power of Life Enrichment Assistant Yes January 14, 2023 4:31am Advance Directive Response Recorded Date/ Time Advance Directives No June 11:24am Living Will No May 25, 2023 11:49am Power of Life Enrichment Assistant No April 11:49am Advance Directive Response Recorded Date/ Time Name of Medical Power of Life Enrichment Assistant FAMILY July 31, 2023 10:40am Advance Directives No June 11:24am Living Will Yes July 31 10:40am Power of Life Enrichment Assistant Yes July 31, 2023 10:40am Advance Directive Response Recorded Date/ Time Name of Medical Power of Life Enrichment Assistant FAMILY July 31, 2023 10:40am Advance Directives No June 11:24am Living Will No October 16, 8:35am Power of Life Enrichment Assistant No October 16, 2023 8:35am Advance Directive Response Recorded Date/ Time Name of Medical Power of Life Enrichment Assistant FAMILY July 31, 2023 11:40am Advance Directives No June 12:24pm Living Will No October 16, 024 9:35am Power of Life Enrichment Assistant No October 16, 2023 9:35am Advance Directive Response Recorded Date/ Time Name of Medical Power of Life Enrichment Assistant Louis Huffman December 07, 2023 10:11pm Advance Directives No June 12:24pm Living Will Yes December 07, 2023 10:11pm Power of Life Enrichment Assistant Yes December 06 10:11pm Advance Directive Response Recorded Date/ Time Name of Medical Power of Life Enrichment Assistant Louis Huffman December 07, 2023 10:11pm Name of Medical Power of Life Enrichment Assistant louis herrera other December 18, 2023 3:13pm Advance Directives No June 12:24pm Living Will Yes December 18, 2023 3:13pm Power of Life Enrichment Assistant Yes December 17 3:13pm Advance Directive Response Recorded Date/ Time Living Will Yes June 26 12:39pm Do you have a Healthcare Pow er of Life Enrichment Assistant? Yes June 26, 2024 12:39pm Living Will No November 13, 2015 9:15pm Do you have a Healthcare Pow er of Life Enrichment Assistant? No November 13, 2015 9:15pm Advance Directives on File Yes October 30, 2024 8:46am Do you have a Healthcare Pow er of Life Enrichment Assistant? Yes October 30, 2024 8:46am Name of Medical Power of Life Enrichment Assistant Louis Herrera other October 30, 2024 8:46am Advance Directives Yes October 30 8:46am Advance Directive Response Recorded Date/ Time Living Will Yes June 26 12:39pm Do you have a Healthcare Power of Life Enrichment Assistant? Yes June 26, 2024 12:39pm Living Will No November 13, 2015 9:15pm Do you have a Healthcare Power of Life Enrichment Assistant? No November 13, 2015 9:15pm Advance Directives Yes October 30 8:46am Advance Directive Response Recorded Date/ Time Living Will No November 13, 2015 9:15pm Do you have a Healthcare Power of Life Enrichment Assistant? No November 13, 2015 9:15pm Advance Directives Yes October 30 8:46am Advance Directive Response Recorded Date/ Time Living Will No November 13, 2015 9:15pm Do you have a Healthcare Power of Life Enrichment Assistant? No November 13, 2015 9:15pm Advance Directives on File No Octob er 2024 8:21am Living Will Yes June 04 8:21am Do you have a Healthcare Power of Life Enrichment Assistant? Yes June 04, 2025 8:21am Name of Medical Power of Life Enrichment Assistant Mother June 04, 2025 8:21am Advance Directives Yes June 04, 2025 8:21am Advance Directive Response Recorded Date/ Time Living Will No November 13, 2015 8:15pm Do you have a Healthcare Power of Life Enrichment Assistant? No November 13, 2015 8:15pm Advance Directives on File No Octob er 2024 7:21am Living Will Yes June 04 7:21am Do you have a Healthcare Power of Life Enrichment Assistant? Yes June 04, 2025 7:21am Name of Medical Power of Life Enrichment Assistant Mother June 04, 2025 7:21am Advance Directives Yes June 04, 2025 7:21am Chief Complaint and Reason for Visit Chief Complaint abn labs LEFT LEG SWELLING LLE EDEMA port flush GOUT FLARE Reason for Visit History of colon can cer Chief Complaint abn labs LEFT LEG SWELLING LLE EDEMA port flush GOUT FLARE E-ORDER FOR DR. PAULSON Reason for Visit History of colon can cer Chief Complaint abn labs LEFT LEG SWELLING LLE EDEMA port flush GOUT FLARE E-ORDER FOR DR. PAULSON 6 M FU VERTIGO Reason for Visit History of colon can cer Essential tremor Hyponatremia Polyneuropathy Trigeminal neuralgia Chief Complaint GOUT FLARE E-ORDER FOR DR. PAULSON 6 M FU VERTIGO port flush NO LABS REVIEW C-SCOPE([facility] 08/16) - PT REQ LATER Reason for Visit Essential tremor Hyponatremia Polyneuropathy Trigeminal neuralgia History of colon cancer Anemia History of colon cancer Chief Complaint port flush Reason for Visit History of colon can cer Chief Complaint port flush 6 M FU EORDER 6MO LABS PRIOR Reason for Visit History of colon can cer Essential tremor Polyneuropathy Trigeminal neuralgia Anemia History of colon cancer Chief Complaint 6 M FU EORDER 6MO LABS PRIOR port flush ANEMIA, SYNCOPE ANEMIA, SYNCOPE Reason for Visit Essential tremor Polyneuropathy Trigeminal neuralgia Anemia History of colon cancer History of colon cancer Anemia History of diabetes mellitus Syncope Chief Complaint 6 M FU EORDER 6MO LABS PRIOR port flush ANEMIA, SYNCOPE ANEMIA, SYNCOPE ANEMIA, SYNCOPE ANEMIA, SYNCOPE ANEMIA, SYNCOPE ANEMIA, SYNCOPE ANEMIA, SYNCOPE Reason for Visit Essential tremor Polyneuropathy Trigeminal neuralgia Anemia History of colon cancer History of colon cancer Anemia History of diabetes mellitus Syncope Varices of esophagus determined by endoscopy Chief Complaint 5WKS LABS RETACRIT H FU 4WK F/U LABS -INJECTION DENTAL PAIN Diabetes 4WKS LABS RETACRIT FU 6 WKS - LABS - RETACRIT port flush Reason for Visit Anemia History of colon cancer Subepithelial esophageal lesion Gastric varices without bleeding Anemia History of colon cancer CKD (chronic kidney disease) Diabetes 1.5, managed as type 1 Neuropathy Obesity Anemia in chronic kidney disease History of colon cancer Hypertension Anemia in chronic kidney disease Gastric varices without bleeding Anemia in chronic kidney disease History of colon cancer Hypertension History of colon cancer Chief Complaint 6WKS LABS RETACRIT 3 M FU 2WKS LABS RETACRIT 2WKS LABS RETACRIT htn, dizziness 2WKS NO LABS port flush 9 M FU 5 mo fu E ORDERS Reason for Visit Anemia in chronic ki dney disease History of colon cancer Hypertension CKD (chronic kidney disease) Diabetes 1.5, managed as type 1 Hypertension Microalbuminuria Obesity Anemia in chronic kidney disease History of colon cancer Anemia in chronic kidney disease History of colon cancer Hypertension Anemia in chronic kidney disease History of colon cancer Hypertension History of colon cancer Essential tremor Trigeminal neuralgia Anemia in chronic kidney disease Gastric varices without bleeding History of colon cancer Loose stools Subepithelial esophageal lesion Chief Complaint 9 M FU 5 mo fu E ORDERS E ORDER & PAPER ORDER /2 DOCTORS GASTRIC VARICES port flush GENERAL ILLNESS Reason for Visit Essential tremor Trigeminal neuralgia Anemia in chronic kidney disease Gastric varices without bleeding History of colon cancer Loose stools Subepithelial esophageal lesion Chief Complaint 9 M FU 5 mo fu E ORDERS E ORDER & PAPER ORDER /2 DOCTORS GASTRIC VARICES port flush GENERAL ILLNESS I86.8 Varicose veins of other specified sites Reason for Visit Essential tremor Trigeminal neuralgia Anemia in chronic kidney disease Gastric varices without bleeding History of colon cancer Loose stools Subepithelial esophageal lesion Chief Complaint GASTRIC VARICES GENERAL ILLNESS I86.8 Varicose veins of other specified sites 6MO LABS port flush 7 M FU, RS 08/03, RS 09/20 ANEMIA Reason for Visit Anemia in chronic ki dney disease History of colon cancer Hypertension CKD (chronic kidney disease) Diabetes 1.5, managed as type 1 Hypertension Microalbuminuria Obesity Polyneuropathy Acute kidney injury Anemia in chronic illness Chief Complaint GENERAL ILLNESS I86.8 Varicose veins of other specified sites 6MO LABS port flush 7 M FU, RS 12/07, RS 24 PEDRO LUIS WITH HYPERKALEMIA IN THE SETTING OF CKD; PEDRO LUIS WITH HYPERKALEMIA IN THE SETTING OF CKD; PEDRO LUIS WITH HYPERKALEMIA IN THE SETTING OF CKD; Reason for Visit Anemia in chronic ki dney disease History of colon cancer Hypertension CKD (chronic kidney disease) Diabetes 1.5, managed as type 1 Hypertension Microalbuminuria Obesity Polyneuropathy Acute kidney injury Hyperkalemia Hypertensive urgency Anemia in chronic illness Chronic kidney disease, stage IV (severe) Chief Complaint GENERAL ILLNESS I86.8 Varicose veins of other specified sites 6MO LABS port flush 7 M FU, RS 12/07, RS 24 PEDRO LUIS WITH HYPERKALEMIA IN THE SETTING OF CKD; PEDRO LUIS WITH HYPERKALEMIA IN THE SETTING OF CKD; PEDRO LUIS WITH HYPERKALEMIA IN THE SETTING OF CKD; 2 WK FU Reason for Visit Anemia in chronic ki dney disease History of colon cancer Hypertension CKD (chronic kidney disease) Diabetes 1.5, managed as type 1 Hypertension Microalbuminuria Obesity Polyneuropathy Acute kidney injury Hyperkalemia Hypertensive urgency Anemia in chronic illness Chronic kidney disease, stage IV (severe) GERD (gastroesophageal reflux disease) Anemia in chronic kidney disease Gastric varices without bleeding History of colon cancer Loose stools Subepithelial esophageal lesion Chief Complaint GENERAL ILLNESS I86.8 Varicose veins of other specified sites 6MO LABS port flush 7 M FU, RS 12/07, RS 24 PEDRO LUIS WITH HYPERKALEMIA IN THE SETTING OF CKD; PEDRO LUIS WITH HYPERKALEMIA IN THE SETTING OF CKD; PEDRO LUIS WITH HYPERKALEMIA IN THE SETTING OF CKD; 2 WK FU pain Reason for Visit Anemia in chronic ki dney disease History of colon cancer Hypertension CKD (chronic kidney disease) Diabetes 1.5, managed as type 1 Hypertension Microalbuminuria Obesity Polyneuropathy Anemia in chronic illness Chronic kidney disease, stage IV (severe) Acute kidney injury Hyperkalemia Hypertensive urgency GERD (gastroesophageal reflux disease) Anemia in chronic kidney disease Gastric varices without bleeding History of colon cancer Loose stools Subepithelial esophageal lesion Chief Complaint 6WKS LABS RETACRIT 3 M FU 2WKS LABS RETACRIT 2WKS LABS RETACRIT htn, dizziness 2WKS NO LABS port flush 9 M FU 5 mo fu E ORDERS E ORDER & PAPER ORDER /2 DOCTORS GASTRIC VARICES Reason for Visit Anemia in chronic ki dney disease History of colon cancer Hypertension CKD (chronic kidney disease) Diabetes 1.5, managed as type 1 Hypertension Microalbuminuria Obesity Anemia in chronic kidney disease History of colon cancer Anemia in chronic kidney disease History of colon cancer Hypertension Anemia in chronic kidney disease History of colon cancer Hypertension History of colon cancer Essential tremor Trigeminal neuralgia Anemia in chronic kidney disease Gastric varices without bleeding History of colon cancer Loose stools Subepithelial esophageal lesion Chief Complaint Admit Date REMOVED TUNNELED CATH October 30, 2024 7: 21am REMOVED TUNNELED CATH October 30, 2024 9: 26am Ferrlecit December 09, 2024 2:0 0pm 6 M FU December 18, 2024 10: 30am Post Catheter Removal December 20, 2024 9 :17am Prolonged bleeding, fistula February 21, 2 025 8:29am Reason for Visit Admit Date Vascular dialysis catheter in place [facility] 2024 7:21am History of colon cancer December 09, 2024 2:00pm Secondary hyperparathyroidism (of renal origin) December 18, 2024 10:30am Hypertension December 18, 2024 10: 30am Obesity December 18, 2024 10: 30am Type 1 diabetes mellitus wit h diabetic chronic kidney disease December 18, 2024 10:30am Vitamin D deficiency December 18, 2024 10 :30am AVF (arteriovenous fistula) December 20, 2024 9:17am Chief Complaint Admit Date Ferrlecit December 09, 2024 2:0 0pm 6 M FU December 18, 2024 10: 30am Post Catheter Removal December 20, 2024 9 :17am Prolonged bleeding, fistula February 21, 2 025 8:29am I77.0 Arteriovenous fistula, acquired Ju ly 2024 8:54am Reason for Visit Admit Date History of colon cancer December 09, 2024 2:00pm Secondary hyperparathyroidism (of renal origin) December 18, 2024 10:30am Hypertension December 18, 2024 10: 30am Obesity December 18, 2024 10: 30am Type 1 diabetes mellitus wit h diabetic chronic kidney disease December 18, 2024 10:30am Vitamin D deficiency December 18, 2024 10 :30am AVF (arteriovenous fistula) December 20, 2024 9:17am ESRD (end stage renal disease) on dialys is February 21, 2025 8:29am AVF (arteriovenous fistula) February 21 8:29am Chief Complaint Admit Date Prolonged bleeding, fistula February 21 8:29am I77.0 Arteriovenous fistula, acquired Ju ly 2024 8:54am Ferrlecit March 12, 2025 2:00 pm follow up April 21, 2025 7: 44am Reason for Visit Admit Date ESRD (end stage renal disease) on dialys is February 21, 2025 8:29am AVF (arteriovenous fistula) February 21 8:29am History of colon cancer March 12, 2025 2:00pm Right carotid bruit April 21, 2025 7: 44am Essential tremor April 21, 2025 7: 44am Polyneuropathy April 21, 2025 7: 44am Trigeminal neuralgia April 21, 2025 7 :44am Fatigue April 21, 2025 7: 44am Chief Complaint Admit Date Prolonged bleeding, fistula February 21 8:29am I77.0 Arteriovenous fistula, acquired Ju ly 2024 8:54am follow up April 21, 2025 7: 44am Ferrlecit April 25, 2025 11 :30am right carotid bruit May 02, 2025 8:54am 6 M FU May 07, 2025 10:11am Reason for Visit Admit Date ESRD (end stage renal disease) on dialys is February 21, 2025 8:29am AVF (arteriovenous fistula) February 21 8:29am Right carotid bruit April 21, 2025 7: 44am Polyneuropathy April 21, 2025 7: 44am Trigeminal neuralgia April 21, 2025 7 :44am Essential tremor April 21, 2025 7: 44am Fatigue April 21, 2025 7: 44am History of colon cancer April 25 11:30am Chief Complaint Admit Date Prolonged bleeding, fistula February 21 8:29am I77.0 Arteriovenous fistula, acquired Ju ly 2024 8:54am follow up April 21, 2025 7: 44am med onc April 25, 2025 11 :30am right carotid bruit May 02, 2025 8:54am 6 M FU May 07, 2025 10:11am Reason for Visit Admit Date ESRD (end stage renal disease) on dialys is February 21, 2025 8:29am AVF (arteriovenous fistula) February 21 8:29am Right carotid bruit April 21, 2025 7: 44am Polyneuropathy April 21, 2025 7: 44am Trigeminal neuralgia April 21, 2025 7 :44am Essential tremor April 21, 2025 7: 44am Fatigue April 21, 2025 7: 44am History of colon cancer April 25 11:30am GERD (gastroesophageal reflux disease) S eptember 2024 10:11am Anemia in chronic kidney disease Septemb er 2024 10:11am Gastric varices without bleeding Septemb er 2024 10:11am History of colon cancer May 07, 2025 10:11am Loose stools May 07, 2025 10:11am Subepithelial esophageal lesion Septembe r 2024 10:11am Chief Complaint Admit Date Prolonged bleeding, fistula February 21 8:29am I77.0 Arteriovenous fistula, acquired Ju ly 2024 8:54am follow up April 21, 2025 7: 44am med onc April 25, 2025 11 :30am right carotid bruit May 02, 2025 8:54am 6 M FU May 07, 2025 10:11am RIGHT I77.0 June 04, 2025 8: 03am RIGHT I77.0 June 04, 2025 12 :06pm Reason for Visit Admit Date ESRD (end stage renal disease) on dialys is February 21, 2025 8:29am AVF (arteriovenous fistula) February 21 8:29am Right carotid bruit April 21, 2025 7: 44am Polyneuropathy April 21, 2025 7: 44am Trigeminal neuralgia April 21, 2025 7 :44am Essential tremor April 21, 2025 7: 44am Fatigue April 21, 2025 7: 44am History of colon cancer April 25 11:30am GERD (gastroesophageal reflux disease) S eptember 2024 10:11am Anemia in chronic kidney disease Septemb er 2024 10:11am Gastric varices without bleeding Septemb er 2024 10:11am History of colon cancer May 07, 2025 10:11am Loose stools May 07, 2025 10:11am Subepithelial esophageal lesion Septembe r 2024 10:11am Arteriovenous fistula stenosis June 042024 8:03am Chief Complaint Admit Date follow up April 21, 2025 7: 44am med onc April 25, 2025 11 :30am right carotid bruit May 02, 2025 8:54am 6 M FU May 07, 2025 10:11am RIGHT I77.0 June 04, 2025 8: 03am RIGHT I77.0 June 04, 2025 12 :06pm 6 M FU June 18, 2025 1 0:38am Post Fistulagram June 25, 2025 1 0:45am 2 M FU June 30, 2025 9 :49am EORDER June 30, 2025 1 1:07am Reason for Visit Admit Date Right carotid bruit April 21, 2025 7: 44am Polyneuropathy April 21, 2025 7: 44am Trigeminal neuralgia April 21, 2025 7 :44am Essential tremor April 21, 2025 7: 44am Fatigue April 21, 2025 7: 44am History of colon cancer April 25 11:30am GERD (gastroesophageal reflux disease) S eptember 2024 10:11am [facility] History of colon cancer May 07, 2025 10:11am Loose stools May 07, 2025 10:11am Subepithelial esophageal lesion Septembe r 2024 10:11am Arteriovenous fistula stenosis June 042024 8:03am CKD stage 5 due to type 1 diabetes melli tus June 18, 2025 10:38am Diabetes 1.5, managed as type 1 June 18, 2025 10:38am High cholesterol June 18, 2025 1 0:38am High triglycerides June 18, 2025 1 0:38am Hypertension June 18, 2025 1 0:38am Microalbuminuria June 18, 2025 1 0:38am Obesity June 18, 2025 1 0:38am Vitamin D deficiency June 18, 2025 10:38am ESRD (end stage renal disease) on dialys is June 25, 2025 10:45am AVF (arteriovenous fistula) May 10:45am Polyneuropathy June 30, 2025 9 :49am Trigeminal neuralgia June 30, 2025 9:49am Essential tremor June 30, 2025 9 :49am Reason for Referral Specialty Diagnoses / Procedures Referred By Kimmy garcía Referred To Contact Diagnoses Open nondisplaced fracture of proximal phalanx of lesser toe of left foot, initial encounter TestRoberto vazquez [address] [place] [address] Referral ID Status Reason Start Date Expiration Date Visits Re quested Visits Authorized [id number] Closed 1 1 Specialty Diagnoses / Procedures Referred By Kimmy garcía Referred To Contact XR IMAGING Diagnoses Osteomyelitis of toe (HCC) Procedures XR FOOT GENERAL 3V AP/LAT/OBL LEFT RADEX FOOT COMPLETE MINIMUM 3 VIEWS Roberto Anderson [address] [place] [address] Xr Imaging Referral ID Status Reason Start Date Expiration Date V isits Requested Visits Authorized [id number] Closed Auto-Generate d Referral 01/28/2022 02/27/2023 1 1 Specialty Diagnoses / Procedures Referred By Kimmy garcía Referred To Contact Diagnoses 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) Type 1 diabetes mellitus with stage 3 chronic kidney disease, unspecified whether stage 3a or 3b CKD (HCC) 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) Candy Penn, CHAPARRITA[employer] [address] [address] Referral ID Status Reason Start Date Expiration Date Visits Re quested Visits Authorized [id number] Closed 1 1 Specialty Diagnoses / Procedures Referred By Kimmy garcía Referred To Contact Diagnoses 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) Type 1 diabetes mellitus with stage 3 chronic kidney disease, unspecified whether stage 3a or 3b CKD (HCC) 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) Candy Penn APRN.[employer] [address] [place] [address] Referral ID Status Reason Start Date Expiration Date Visits Re quested Visits Authorized [id number] Closed 1 1 Specialty Diagnoses / Procedures Referred By Kimmy garcía Referred To Contact TRANSPLANT Diagnoses ESRD on dialysis (HCC) Pre-transplant evaluation for ESRD (end stage renal disease) Hypertension, unspecified type Procedures CONSULT TO [facility] OFFICE/OUTPATIENT NEW HIGH MDM 60 MINUTES CHEST X-RAY, FRONT&LAT ECG ROUTINE ECG W/LEAST 12 LDS TRCG ONLY W/O I&R CT ANGIOGRAPHY CHEST W/CONTRAST/NONCONTRAST CT ABDOMEN W & W/O CONTRAST Tim Huynh MD [address] [place] [address] [facility] [address] [place] [address] Referral ID Status Reason Start Date Expiration Date Visits Requested Visits Authorized [id number] Pending Review Financial Clearance Required - [employer] Payor 09/11/2024 09/11/2025 99 99 Additional Source Comments (unrecognized sect ion and content) No Status Records FoundNo Status Records FoundNo Status Records FoundNo Status Records FoundNo Status Records Found INFORMATION SOURCE (unrecogn ized section and content) DATE CREATED AUTHOR 02/03/2021 [facility] DATE CREATED AUTHOR AUTHOR'S ORGANIZ ATION 02/08/2022 [facility] DATE CREATED AUTHOR AUTHOR'S ORGANIZ ATION 12/01/2024 [facility] DATE CREATED AUTHOR AUTHOR'S ORGANIZ ATION 06/29/2025 [facility] DATE CREATED AUTHOR AUTHOR'S ORGANIZ ATION 07/02/2025 [facility] Source Comments (unrecognize d section and content) In the event this informatio n is protected by the Federal Confidentiality of Alcohol and Drug Abuse Patient Records regulations: The Federal rules restrict any use of the information to criminally investigate or prosecute any alcohol or drug abuse patient.[facility] System[facility] the event this information is protected by the Federal Confidentiality of Alcohol and Drug Abuse Patient Records regulations: The Federal rules restrict any use of the information to criminally investigate or prosecute any alcohol or drug abuse patient.[facility] SystemIn the event this information is protected by the Federal Confidentiality of Alcohol and Drug Abuse Patient Records regulations: The Federal rules restrict any use of the information to criminally investigate or prosecute any alcohol or drug abuse patient.[facility] SystemIn the event this information is protected by the Federal Confidentiality of Alcohol and Drug Abuse Patient Records regulations: The Federal rules restrict any use of the information to criminally investigate or prosecute any alcohol or drug abuse patient.[facility] SystemIn the event this information is protected by the Federal Confidentiality of Alcohol and Drug Abuse Patient Records regulations: The Federal rules restrict any use of the information to criminally investigate or prosecute any alcohol or drug abuse patient.[facility] SystemIn the event this information is protected by the Federal Confidentiality of Alcohol and Drug Abuse Patient Records regulations: The Federal rules restrict any use of the information to criminally investigate or prosecute any alcohol or drug abuse patient.[facility] SystemIn the event this information is protected by the Federal Confidentiality of Alcohol and Drug Abuse Patient Records regulations: The Federal rules restrict any use of the information to criminally investigate or prosecute any alcohol or drug abuse patient.[facility] SystemIn the event this information is protected by the Federal Confidentiality of Alcohol and Drug Abuse Patient Records regulations: The Federal rules restrict any use of the information to criminally investigate or prosecute any alcohol or drug abuse patient.[facility] SystemIn the event this information is protected by the Federal Confidentiality of Alcohol and Drug Abuse Patient Records regulations: The Federal rules restrict any use of the information to criminally investigate or prosecute any alcohol or drug abuse patient.[facility] SystemIn the event this information is protected by the Federal Confidentiality of Alcohol and Drug Abuse Patient Records regulations: The Federal rules restrict any use of the information to criminally investigate or prosecute any alcohol or drug abuse patient.[facility] SystemIn the event this information is protected by the Federal Confidentiality of Alcohol and Drug Abuse Patient Records regulations: The Federal rules restrict any use of the information to criminally investigate or prosecute any alcohol or drug abuse patient.[facility] SystemIn the event this information is protected by the Federal Confidentiality of Alcohol and Drug Abuse Patient Records regulations: The Federal rules restrict any use of the information to criminally investigate or prosecute any alcohol or drug abuse patient.[facility] SystemIn the event this information is protected by the Federal Confidentiality of Alcohol and Drug Abuse Patient Records regulations: The Federal rules restrict any use of the information to criminally investigate or prosecute any alcohol or drug abuse patient.[facility] SystemIn the event this information is protected by the Federal Confidentiality of Alcohol and Drug Abuse Patient Records regulations: The Federal rules restrict any use of the information to criminally investigate or prosecute any alcohol or drug abuse patient.[facility] SystemIn the event this information is protected by the Federal Confidentiality of Alcohol and Drug Abuse Patient Records regulations: The Federal rules restrict any use of the information to criminally investigate or prosecute any alcohol or drug abuse patient.[facility] SystemIn the event this information is protected by the Federal Confidentiality of Alcohol and Drug Abuse Patient Records regulations: The Federal rules restrict any use of the information to criminally investigate or prosecute any alcohol or drug abuse patient.[facility] SystemIn the event this information is protected by the Federal Confidentiality of Alcohol and Drug Abuse Patient Records regulations: The Federal rules restrict any use of the information to criminally investigate or prosecute any alcohol or drug abuse patient.[facility] SystemIn the event this information is protected by the Federal Confidentiality of Alcohol and Drug Abuse Patient Records regulations: The Federal rules restrict any use of the information to criminally investigate or prosecute any alcohol or drug abuse patient.[facility] SystemIn the event this information is protected by the Federal Confidentiality of Alcohol and Drug Abuse Patient Records regulations: The Federal rules restrict any use of the information to criminally investigate or prosecute any alcohol or drug abuse patient.[facility] SystemIn the event this information is protected by the Federal Confidentiality of Alcohol and Drug Abuse Patient Records regulations: The Federal rules restrict any use of the information to criminally investigate or prosecute any alcohol or drug abuse patient.[facility] SystemIn the event this information is protected by the Federal Confidentiality of Alcohol and Drug Abuse Patient Records regulations: The Federal rules restrict any use of the information to criminally investigate or prosecute any alcohol or drug abuse patient.[facility] SystemIn the event this information is protected by the Federal Confidentiality of Alcohol and Drug Abuse Patient Records regulations: The Federal rules restrict any use of the information to criminally investigate or prosecute any alcohol or drug abuse patient.[facility] SystemIn the event this information is protected by the Federal Confidentiality of Alcohol and Drug Abuse Patient Records regulations: The Federal rules restrict any use of the information to criminally investigate or prosecute any alcohol or drug abuse patient.[facility] SystemIn the event this information is protected by the Federal Confidentiality of Alcohol and Drug Abuse Patient Records regulations: The Federal rules restrict any use of the information to criminally investigate or prosecute any alcohol or drug abuse patient.[facility] SystemIn the event this information is protected by the Federal Confidentiality of Alcohol and Drug Abuse Patient Records regulations: The Federal rules restrict any use of the information to criminally investigate or prosecute any alcohol or drug abuse patient.[facility] SystemIn the event this information is protected by the Federal Confidentiality of Alcohol and Drug Abuse Patient Records regulations: The Federal rules restrict any use of the information to criminally investigate or prosecute any alcohol or drug abuse patient.[facility] SystemIn the event this information is protected by the Federal Confidentiality of Alcohol and Drug Abuse Patient Records regulations: The Federal rules restrict any use of the information to criminally investigate or prosecute any alcohol or drug abuse patient.[facility] SystemIn the event this information is protected by the Federal Confidentiality of Alcohol and Drug Abuse Patient Records regulations: The Federal rules restrict any use of the information to criminally investigate or prosecute any alcohol or drug abuse patient.[facility] SystemIn the event this information is protected by the Federal Confidentiality of Alcohol and Drug Abuse Patient Records regulations: The Federal rules restrict any use of the information to criminally investigate or prosecute any alcohol or drug abuse patient.[facility] SystemIn the event this information is protected by the Federal Confidentiality of Alcohol and Drug Abuse Patient Records regulations: The Federal rules restrict any use of the information to criminally investigate or prosecute any alcohol or drug abuse patient.[facility] SystemIn the event this information is protected by the Federal Confidentiality of Alcohol and Drug Abuse Patient Records regulations: The Federal rules restrict any use of the information to criminally investigate or prosecute any alcohol or drug abuse patient.[facility] SystemIn the event this information is protected by the Federal Confidentiality of Alcohol and Drug Abuse Patient Records regulations: The Federal rules restrict any use of the information to criminally investigate or prosecute any alcohol or drug abuse patient.[facility] SystemIn the event this information is protected by the Federal Confidentiality of Alcohol and Drug Abuse Patient Records regulations: The Federal rules restrict any use of the information to criminally investigate or prosecute any alcohol or drug abuse patient.[facility] SystemIn the event this information is protected by the Federal Confidentiality of Alcohol and Drug Abuse Patient Records regulations: The Federal rules restrict any use of the information to criminally investigate or prosecute any alcohol or drug abuse patient.[facility] SystemIn the event this information is protected by the Federal Confidentiality of Alcohol and Drug Abuse Patient Records regulations: The Federal rules restrict any use of the information to criminally investigate or prosecute any alcohol or drug abuse patient.[facility] SystemIn the event this information is protected by the Federal Confidentiality of Alcohol and Drug Abuse Patient Records regulations: The Federal rules restrict any use of the information to criminally investigate or prosecute any alcohol or drug abuse patient.[facility] SystemIn the event this information is protected by the Federal Confidentiality of Alcohol and Drug Abuse Patient Records regulations: The Federal rules restrict any use of the information to criminally investigate or prosecute any alcohol or drug abuse patient.[facility] SystemIn the event this information is protected by the Federal Confidentiality of Alcohol and Drug Abuse Patient Records regulations: The Federal rules restrict any use of the information to criminally investigate or prosecute any alcohol or drug abuse patient.[facility] SystemIn the event this information is protected by the Federal Confidentiality of Alcohol and Drug Abuse Patient Records regulations: The Federal rules restrict any use of the information to criminally investigate or prosecute any alcohol or drug abuse patient.[facility] SystemIn the event this information is protected by the Federal Confidentiality of Alcohol and Drug Abuse Patient Records regulations: The Federal rules restrict any use of the information to criminally investigate or prosecute any alcohol or drug abuse patient.[facility] SystemIn the event this information is protected by the Federal Confidentiality of Alcohol and Drug Abuse Patient Records regulations: The Federal rules restrict any use of the information to criminally investigate or prosecute any alcohol or drug abuse patient.[facility] SystemIn the event this information is protected by the Federal Confidentiality of Alcohol and Drug Abuse Patient Records regulations: The Federal rules restrict any use of the information to criminally investigate or prosecute any alcohol or drug abuse patient.[facility] SystemIn the event this information is protected by the Federal Confidentiality of Alcohol and Drug Abuse Patient Records regulations: The Federal rules restrict any use of the information to criminally investigate or prosecute any alcohol or drug abuse patient.[facility] SystemIn the event this information is protected by the Federal Confidentiality of Alcohol and Drug Abuse Patient Records regulations: The Federal rules restrict any use of the information to criminally investigate or prosecute any alcohol or drug abuse patient.[facility] SystemIn the event this information is protected by the Federal Confidentiality of Alcohol and Drug Abuse Patient Records regulations: The Federal rules restrict any use of the information to criminally investigate or prosecute any alcohol or drug abuse patient.[facility] SystemIn the event this information is protected by the Federal Confidentiality of Alcohol and Drug Abuse Patient Records regulations: The Federal rules restrict any use of the information to criminally investigate or prosecute any alcohol or drug abuse patient.[facility] SystemIn the event this information is protected by the Federal Confidentiality of Alcohol and Drug Abuse Patient Records regulations: The Federal rules restrict any use of the information to criminally investigate or prosecute any alcohol or drug abuse patient.[facility] SystemIn the event this information is protected by the Federal Confidentiality of Alcohol and Drug Abuse Patient Records regulations: The Federal rules restrict any use of the information to criminally investigate or prosecute any alcohol or drug abuse patient.[facility] SystemIn the event this information is protected by the Federal Confidentiality of Alcohol and Drug Abuse Patient Records regulations: The Federal rules restrict any use of the information to criminally investigate or prosecute any alcohol or drug abuse patient.[facility] SystemIn the event this information is protected by the Federal Confidentiality of Alcohol and Drug Abuse Patient Records regulations: The Federal rules restrict any use of the information to criminally investigate or prosecute any alcohol or drug abuse patient.[facility] SystemIn the event this information is protected by the Federal Confidentiality of Alcohol and Drug Abuse Patient Records regulations: The Federal rules restrict any use of the information to criminally investigate or prosecute any alcohol or drug abuse patient.[facility] SystemIn the event this information is protected by the Federal Confidentiality of Alcohol and Drug Abuse Patient Records regulations: The Federal rules restrict any use of the information to criminally investigate or prosecute any alcohol or drug abuse patient.[facility] Reason for Visit (unrecogniz ed section and content) Reason Comments Blood Pressure Check Reason Comments Results Reason Comments ER F/U Reason Comments ED Follow-up Reason Comments Edema left leg, knee to fo ot, since last night Reason Comments Patient Update Reason Comments Refill Request Reason Onset Date Comments Refill Request 01/06/2022 Out of medicatio n Reason Comments Follow Up Diabetic Foot Care New Fracture Reason Comments Physician To Physician Consult Reason Comments Diabetic Eye Exam [facility] Reason Comments Bradycardia Reason Comments [...] up Reason Comments Diabetic Eye Exam Report [facility] Reason Onset Date Comments Refill Request 05/29/2023 Reason Comments Referral - Kidney Txp Reason Comments Kidney Recipient Evaluation Specialty Diagnoses / Procedures Referred By Contac t Referred To Contact Nephrology / Transplant Surgery Procedures PRE NEW PATIENT Self, Self Tyrese Lange, RYANNE [address] [place] [address] Phone: tel: fax: Referral ID Status Reason Start Date Expiration Date V isits Requested Visits Authorized [id number] New Request 11/08/2024 12/03/2025 1 1 Reason Comments Social Work Consult Reason Comments Referral - Kidney Txp NS on 11/20 Reason Comments New Patient Pt.states he's his l abs have been elevated. Specialty Diagnoses / Procedures Referred By Kimmy garcía Referred To Contact Gastroenterology Diagnoses Pre-transplant evaluation for kidney transplant Tyrese Lange, RYANNE [address] [place] [address] Phone: tel: fax: Referral ID Status Reason Start Date Expiration Date V isits Requested Visits Authorized [id number] New Request 12/19/2024 01/13/2026 1 1 Reason Comments Follow-up Pt is doing ok Care Teams (unrecognized sec tion and content) Cake Tester Relationship Specialty Start Date End Date Chriss Cruz MD [address] [place] [address] PCP - General Family Practice 01/17/19 Jeancarlos Wolff MD [address] [place] [address] Gastroenterology 09/04/14 Cake Tester Relationship Specialty Start Date End Date Chriss Cruz MD [address] [place] [address] PCP - General Family Practice 01/17/19 Jeancarlos Wolff MD [address] [place] [address] Gastroenterology 09/04/14 Cake Tester Relationship Specialty Start Date End Date Chriss Cruz MD [address] [place] [address] PCP - General Family Practice 01/17/19 Jeancarlos Wolff MD [address] [place] [address] Gastroenterology 09/04/14 Cake Tester Relationship Specialty Start Date End Date Chriss Cruz MD [address] [place] [address] PCP - General Family Practice 01/17/19 Jeancarlos Wolff MD [address] [place] [address] Gastroenterology 09/04/14 Cake Tester Relationship Specialty Start Date End Date Chriss Cruz MD [address] [place] [address] PCP - General Family Practice 01/17/19 Jeancarlos Wolff MD [address] [place] [address] Gastroenterology 09/04/14 Cake Tester Relationship Specialty Start Date End Date Chriss Cruz MD [address] [place] [address] PCP - General Family Practice 01/17/19 Jeancarlos Wolff MD [address] [place] [address] Gastroenterology 09/04/14 Cake Tester Relationship Specialty Start Date End Date Chriss Cruz MD [address] [place] [address] PCP - General Family Practice 01/17/19 Jeancarlos Wolff MD [address] [place] [address] Gastroenterology 09/04/14 Cake Tester Relationship Specialty Start Date End Date Chriss Cruz MD [address] [place] [address] PCP - General Family Practice 01/17/19 Jeancarlos Wolff MD [address] [place] [address] Gastroenterology 09/04/14 Cake Tester Relationship Specialty Start Date End Date Chriss Cruz MD [address] [place] [address] PCP - General Family Practice 01/17/19 Jeancarlos Wolff MD [address] [place] [address] Gastroenterology 09/04/14 Cake Tester Relationship Specialty Start Date End Date Chriss Cruz MD [address] [place] [address] PCP - General Family Practice 01/17/19 Jeancarlos Wolff MD [address] [place] [address] Gastroenterology 09/04/14 Cake Tester Relationship Specialty Start Date End Date Chriss Cruz MD [address] [place] [address] PCP - General Family Practice 01/17/19 Jeancarlos Wolff MD [address] [place] [address] Gastroenterology 09/04/14 Cake Tester Relationship Specialty Start Date End Date Chriss Cruz MD [address] [place] [address] PCP - General Family Practice 01/17/19 Jeancarlos Wolff MD [address] [facility] [place] [address] Gastroenterology 09/04/14 Cake Tester Relationship Specialty Start Date End Date Chriss Cruz MD [address] [place] [address] PCP - General Family Practice 01/17/19 Jeancarlos Wolff MD [address] [place] [address] Gastroenterology 09/04/14 Cake Tester Relationship Specialty Start Date End Date Chriss Cruz MD [address] [place] [address] PCP - General Family Practice 01/17/19 Jeancarlos Wolff MD [address] [place] [address] Gastroenterology 09/04/14 Cake Tester Relationship Specialty Start Date End Date Chriss Cruz MD [address] [place] [address] PCP - General Family Practice 01/17/19 Jeancarlos Wolff MD [address] [place] [address] Gastroenterology 09/04/14 Cake Tester Relationship Specialty Start Date End Date Chriss Cruz MD [address] [place] [address] PCP - General Family Practice 01/17/19 Jeancarlos Wolff MD [address] [place] [address] Gastroenterology 09/04/14 Cake Tester Relationship Specialty Start Date End Date Chriss Cruz MD [address] [place] [address] PCP - General Family Medicine 01/17/19 Jeancarlos Wolff MD [address] [place] [address] Gastroenterology 09/04/14 Cake Tester Relationship Specialty Start Date End Date Chriss Cruz MD [address] [place] [address] PCP - General Family Medicine 01/17/19 Jeancarlos Wloff MD [address] [place] [address] Gastroenterology 09/04/14 Cake Tester Relationship Specialty Start Date End Date Chriss Cruz MD [address] [place] [address] PCP - General Family Medicine 01/17/19 Jeancarlos Wolff MD [address] [facility] [place] [address] Gastroenterology 09/04/14 Cake Tester Relationship Specialty Start Date End Date Chriss Cruz MD [address] [place] [address] PCP - General Family Medicine 01/17/19 Jeancarlos Wolff MD [address] [facility] [place] [address] Gastroenterology 09/04/14 Cake Tester Relationship Specialty Start Date End Date Chriss Cruz MD [address] [place] [address] PCP - General Family Medicine 01/17/19 Jeancarlos Wolff MD [address] [place] [address] Gastroenterology 09/04/14 Cake Tester Relationship Specialty Start Date End Date Chriss Cruz MD [address] [place] [address] PCP - General Family Medicine 01/17/19 Jeancarlos Wolff MD [address] [place] [address] Gastroenterology 09/04/14 Cake Tester Relationship Specialty Start Date End Date Chriss Cruz MD [address] [place], [place] [address] PCP - General Family Medicine 01/17/19 Jeancarlos Wolff MD [address] [place] [address] Gastroenterology 09/04/14 Cake Tester Relationship Specialty Start Date End Date Chriss Cruz MD [address] [place], [place] [id number] PCP - General Family Medicine 01/17/19 Jeancarlos Wolff MD [address] [place] [address] Gastroenterology 09/04/14 Team Status: Active Member Role Status Dates Dr. Chriss Cruz MD Family Provider Active Dr. Chriss Cruz MD Primary Care Provider Active Team Status: Active Member Role Status Dates Dr. Chriss Cruz MD Primary Care Provi naveed, Family Provider, Referring Provider Active Dr. Jimmie Ibarra MD Attending Provider Active Team Status: Inactive Member Role Status Dates Dr. Chriss Cruz MD Primary Care Provider Active SERGE Adame Attending Provider Active Team Status: Inactive Member Role Status Dates Dr. Chriss Cruz MD Primary Care Provider, Referring Provider Active Dr. Robb Paulson MD Attending Provider Active Team Status: Inactive Member Role Status Dates Dr. Chriss Cruz MD Primary Care Provider, Referring Provider Active Dr. Jimmie Ibarra MD Attending Provider Active Team Status: Inactive Member Role Status Dates Dr. Chriss Cruz MD Primary Care Provider Active Dr. Robb Paulson MD Attending Provider Active Team Status: Active Member Role Status Dates Dr. Chriss Cruz MD Primary Care Provider Active Dr. Galdino Hogan MD Emergency Provider Active Dr. Maria Antonia Renae MD Admit Provider, Attending Provid er, Other Provider Active Team Status: Active Member Role Status Dates Dr. Chriss Cruz MD Primary Care Provider Active Dr. Galdino Hogan MD Emergency Provider Active Dr. Maria Antonia Renae MD Admit Provider, Attending Provid er Active Team Status: Active Member Role Status Dates Dr. Chriss Cruz MD Primary Care Provider Active Dr. Donato Harrison MD Attending Provider Active Team Status: Active Member Role Status Dates Dr. Chriss Cruz MD Primary Care Provider Active Dr. Aquiles Warren DO Attending Provider Active Team Status: Active Member Role Status Dates Dr. Chriss Cruz MD Primary Care Provider Active Dr. Galdino Hogan MD Emergency Provider Active Dr. Maria Antonia Renae MD Admit Provider, Other Provider A ctive Dr. Aquiles Warren DO Attending Provider Active Team Status: Inactive Member Role Status Dates Dr. Chriss Cruz MD Primary Care Provider Active Dr. Galdino Hogan MD Emergency Provider Active Dr. Maria Antonia Renae MD Admit Provider, Attending Provid er Active Cake Tester Relationship Specialty Start Date End Date Chriss Cruz MD [address] [place] [address] PCP - General Family Medicine 01/17/19 Jeancarlos Wolff MD [address] [place] [address] Gastroenterology 09/04/14 Cake Tester Relationship Specialty Start Date End Date Chriss Cruz MD [address] [place] [address] PCP - General Family Medicine 01/17/19 Jeancarlos Wolff MD [address] [place] [address] Gastroenterology 09/04/14 Cake Tester Relationship Specialty Start Date End Date Chriss Cruz MD [address] [place] [address] PCP - General Family Medicine 01/17/19 Jeancarlos Wolff MD [address] [place] [address] Gastroenterology 09/04/14 Cake Tester Relationship Specialty Start Date End Date Chriss Cruz MD [address] [place] [address] PCP - General Family Medicine 01/17/19 Jeancarlos Wolff MD [address] [place], [place] [address] Gastroenterology 09/04/14 Cake Tester Relationship Specialty Start Date End Date Chriss Cruz MD [address] [place] [address] PCP - General Family Medicine 01/17/19 Jeancarlos Wolff MD [address] [place] [address] Gastroenterology 09/04/14 Cake Tester Relationship Specialty Start Date End Date Chriss Cruz MD [address] [place] [address] PCP - General Family Medicine 01/17/19 Jeancarlos Wolff MD [address] [place] [address] Gastroenterology 09/04/14 Team Status: Inactive Member Role Status Dates Dr. Chriss Cruz MD Primary Care Provider Active Dr. Jimmie Ibarra MD Attending Provider Active Team Status: Inactive Member Role Status Dates Dr. Chriss Cruz MD Primary Care Provider, Referring Provider Active Grisel Timmons NP-C Attending Provider Active Team Status: Inactive Member Role Status Dates Dr. Chriss Cruz MD Primary Care Provider, Referring Provider Active Ashley Garrido NP, PASSENGER SERVICE REPRESENTATIVE-C Attending Provider Active Team Status: Inactive Member Role Status Dates Dr. Chriss Cruz MD Primary Care Provider, Referring Provider Active Dr. Aquiles Warren DO Attending Provider Active Team Status: Inactive Member Role Status Dates Dr. Chriss Cruz MD Primary Care Provider, Referring Provider Active Maureen Campbell NP, PASSENGER SERVICE REPRESENTATIVE-C Attending Provider Active Team Status: Inactive Member Role Status Dates Dr. Chriss Cruz MD Primary Care Provider Active Dr. Cash Dockery MD Attending Provider, Emergency Provider Active Team Status: Inactive Member Role Status Dates Dr. Chriss Cruz MD Primary Care Provider Active Dr. Jamaal Rm MD Attending Provider, Referri ng Provider Active Cake Tester Relationship Specialty Start Date End Date Chriss Cruz MD [address] [place] [address] PCP - General Family Medicine 01/17/19 Jeancarlos Wolff MD [address] [place] [address] Gastroenterology 09/04/14 Cake Tester Relationship Specialty Start Date End Date Chriss Cruz MD [address] [place] [address] PCP - General Family Medicine 01/17/19 Jeancarlos Wolff MD [address] [place] [address] Gastroenterology 09/04/14 Team Status: Active Member Role Status Dates Dr. Chriss Cruz MD Family Provider Active Luciana Garcia DO Primary Care Provider Active Team Status: Inactive Member Role Status Dates Dr. Chriss Cruz MD Primary Care Provider Active Dr. So Donaldson MD Attending Provider, Emergency Provider Active Team Status: Inactive Member Role Status Dates Luciana Garcia DO Primary Care Provider Active Dr. Aquiles Warren DO Attending Provider, Referring Provider Active Team Status: Active Member Role Status Dates Dr. Aquiles Warren , DO Attending Provider, Other Prov ider Active Luciana Garcia DO Primary Care Provider, Referring Provider Active Team Status: Inactive Member Role Status Dates Dr. Aquiles Warren DO Attending Provider Active Luciana Garcia DO Primary Care Provider, Referring Provider Active Team Status: Inactive Member Role Status Dates Luciana Garcia DO Primary Care Provider Active Dr. Jamaal Rm MD Attending Provider, Referri ng Provider Active Dr. Robb Paulson MD Other Provider Active Team Status: Inactive Member Role Status Dates Luciana Garcia DO Primary Care Provider Active Dr. Breanna Friedman , DO Emergency Provider Active Team Status: Inactive Member Role Status Dates Luciana Garcia , DO Primary Care Provider Active Dr. Breanna Friedman , DO Attending Provider, Emergency P rovider Active Team Status: Inactive Member Role Status Dates Dr. Chriss Cruz MD Referring Provider Active ASHER MujicaC Attending Provider Active Luciana Garcia DO Primary Care Provider Active Team Status: Inactive Member Role Status Dates Dr. Jimmie Ibarra MD Attending Provider Active Luciana Garcia DO Primary Care Provider, Referring Provider Active Team Status: Active Member Role Status Dates Luciana Garcia DO Primary Care Provider Active ASHER MujicaC Attending Provider, Referring Pr ovider Active Team Status: Active Member Role Status Dates Luciana Garcia DO Primary Care Provider Active Dr. Kirk Schneider , Emergency Provider Active Dr. Landry Barber , DO Admit Provider, Attending Pr ovider Active Team Status: Active Member Role Status Dates Luciana Garcia DO Primary Care Provider Active Dr. Kirk Schneider , DO Emergency Provider Active Dr. Landry Barber , DO Admit Provider, Other Provid er Active Dr. Jamaal Rm MD Other Provider Active Dr. Alfredo Ag , Attending Provider, Other Pro vider Active Team Status: Inactive Member Role Status Dates Luciana Garcia DO Primary Care Provider Active Dr. Kirk Schneider , Emergency Provider Active Dr. Landry Barber , DO Admit Provider, Other Provid er Active Dr. Jamaal Rm MD Other Provider Active Dr. Alfredo Ag , DO Attending Provider Active Team Status: Inactive Member Role Status Dates Dr. Chriss Cruz MD Referring Provider Active Dr. Aquiles Warren , DO Attending Provider Active Luciana Garcia DO Primary Care Provider Active Team Status: Inactive Member Role Status Dates Luciana Garcia DO Primary Care Provider Active Grisel Timmons NP-C Attending Provider, Referring Pr ovider Active Team Status: Inactive Member Role Status Dates Luciana Garcia DO Primary Care Provider Active Logan Harvey MD Emergency Provider Active Cake Tester Relationship Specialty Start Date End Date Chriss Cruz MD [address] [place], [place] [address] PCP - General Family Medicine 01/17/19 Jeancarlos Wolff MD [address] [place] [id number] Gastroenterology 09/04/14 Team Status: Active Member Role Status Dates Luciana Garcia , DO Primary Care Provider Active Dr. Aquiles Warren , DO Attending Provider, Referring Provider Active Cake Tester Relationship Specialty Start Date End Date Chriss Cruz MD [address] [place] [address] PCP - General Family Medicine 01/17/19 Jeancarlos Wolff MD [address] [place], [place] [address] Gastroenterology 09/04/14 Lindsay Wallace APRN.COMMERCIAL CENSUS TAKER [address] [place] [address] Internal Specialist Family Medicine 08/05/24 Ilene Bhatia APRN.COMMERCIAL CENSUS TAKER [address] [place] [address] Internal Specialist Family Medicine 08/05/24 Cake Tester Relationship Specialty Start Date End Date Chriss Cruz MD [address] [place], [place] [id number] PCP - General Family Medicine 01/17/19 Jeancarlos Wolff MD [address] [place], [place] [address] Gastroenterology 09/04/14 Lindsay Wallace APRN.COMMERCIAL CENSUS TAKER [address] [place] [address] Internal Specialist Family [facility] 08/05/24 Ilene Bhatia APRN.COMMERCIAL CENSUS TAKER [address] [place] [address] Internal Specialist Family [facility] 08/05/24 Cake Tester Relationship Specialty Start Date End Date Kimberlyn East MD [address] [facility] [address] [place] [address] PCP - General Family Medicine 11/08/24 Cake Tester Relationship Specialty Start Date End Date Kimberlyn East MD [address] [facility] [address] [place] [phone] PCP - General Family Medicine 11/08/24 Cake Tester Relationship Specialty Start Date End Date Kimberlyn East MD [address] [facility] [address] [place] [phone] PCP - General Family Medicine 11/08/24 Cake Tester Relationship Specialty Start Date End Date Chriss Cruz MD [address] [place] [address] PCP - General Family Medicine 01/17/19 Jeancarlos Wolff MD [address] [place] [address] Gastroenterology 09/04/14 Lindsay Wallace APRN.COMMERCIAL CENSUS TAKER [address] [place] [address] [facility] Ilene Bhatia APRN.COMMERCIAL CENSUS TAKER [address] [place], [place] [address] Internal Specialist Family [facility] 08/05/24 Cake Tester Relationship Specialty Start Date End Date Chriss Cruz MD [address] [place], [place] [id number] PCP - General Family Medicine 01/17/19 Jeancarlos Wolff MD [address] [address] Gastroenterology 09/04/14 Lindsay Wallace [employer] [address] [place] [address] Internal Specialist [facility] 08/05/24 Ilene Bhatia, [employer] [address] [place], [place] [id number] Internal Specialist [facility] 08/05/24 Cake Tester Relationship Specialty Start Date End Date Kimberlyn East MD PCP - General Family Medicine 11/08/24 Cake Tester Relationship Specialty Start Date End Date Kimberlyn East MD PCP - General Family Medicine 11/08/24 Cake Tester Relationship Specialty Start Date End Date Kimberlyn East MD PCP - General Family Medicine 11/08/24 Cake Tester Relationship Specialty Start Date End Date Kimberlyn East MD PCP - General Family Medicine 11/08/24 Team Status: Active Member Role Status Dates Kimberlyn East MD Primary Care Provider Active Team Status: Inactive Member Role Status Dates Kimberlyn East MD Primary Care Provider Active St art: October 30, 2024 End: October 30, 2024 Dr. Kirk Fernandez MD Attending Provider Active S tart: October 30, 2024 End: October 30, 2024 Team Status: Active Member Role Status Dates Kimberlyn East MD Primary Care Provider Active St art: October 30, 2024 Dr. Kirk Fernandez MD Attending Provider Active S tart: October 30, 2024 Dr. Kirk Fernandez MD Referring Provider Active S tart: October 30, 2024 Dr. Kirk Fernandez MD Other Provider Active Start : October 30, 2024 Team Status: Active Member Role Status Dates Dr. Chriss Cruz MD Primary Care Provider Active Start: December 09, 2024 Dr. Chriss Cruz MD Family Provider Active Sta rt: December 09, 2024 Dr. Chriss Cruz MD Referring Provider Active Start: December 09, 2024 Dr. Jimmie Ibarra MD Attending Provider Active S tart: December 09, 2024 Dr. Radha Kelley DO Other Provider Active Sta rt: December 09, 2024 Team Status: Inactive Member Role Status Dates Kimberlyn East MD Primary Care Provider Active St art: December 18, 2024 End: December 18, 2024 Kimberlyn East MD Referring Provider Active Start : December 18, 2024 End: December 18, 2024 SERGE Mujica Attending Provider Active Start: December 18, 2024 End: December 18, 2024 Team Status: Inactive Member Role Status Dates Kimberlyn East MD Primary Care Provider Active St art: December 20, 2024 End: December 20, 2024 Kimberlyn East MD Referring Provider Active Start : December 20, 2024 End: December 20, 2024 BLANCA Ellison Attending Provider Active Star t: December 20, 2024 End: December 20, 2024 Team Status: Inactive Member Role Status Dates Kimberlyn East MD Primary Care Provider Active St art: February 21, 2025 End: February 21, 2025 Kimberlyn East MD Referring Provider Active Start : February 21, 2025 End: February 21, 2025 BLANCA Ellison Attending Provider Active Star t: February 21, 2025 End: February 21, 2025 Team Status: Active Member Role/Relationship Status Dates Kimberlyn East MD Primary Care Provider Active Team Status: Active Member Role/Relationship Status Dates Dr. Chriss Cruz MD Primary Care Provider Active Start: December 09, 2024 Dr. Chriss Cruz MD Family Provider Active Sta rt: December 09, 2024 Dr. Chriss Cruz MD Referring Provider Active Start: December 09, 2024 Dr. Jimmie Ibarra MD Attending Provider Active S tart: December 09, 2024 Dr. Radha Kelley DO Other Provider Active Sta rt: December 09, 2024 Team Status: Inactive Member Role/Relationship Status Dates Kimberlyn East MD Primary Care Provider Active St art: December 18, 2024 End: December 18, 2024 Kimberlyn East MD Referring Provider Active Start : December 18, 2024 End: December 18, 2024 SERGE Mujica Attending Provider Active Start: December 18, 2024 End: December 18, 2024 Team Status: Inactive Member Role/Relationship Status Arti East MD Primary Care Provider Active St art: December 20, 2024 End: December 20, 2024 Kimberlyn East MD Referring Provider Active Start : December 20, 2024 End: December 20, 2024 BLANCA Ellison Attending Provider Active Star t: December 20, 2024 End: December 20, 2024 Team Status: Inactive Member Role/Relationship Status Arti East MD Primary Care Provider Active St art: February 21, 2025 End: February 21, 2025 Kimberlyn East MD Referring Provider Active Start : February 21, 2025 End: February 21, 2025 BLANCA Ellison Attending Provider Active Star t: February 21, 2025 End: February 21, 2025 Team Status: Inactive Member Role/Relationship Status Arti East MD Primary Care Provider Active St art: March 03, 2025 End: March 03, 2025 BLANCA Ellison Attending Provider Active Star t: March 03, 2025 End: March 03, 2025 BLANCA Ellison Referring Provider Active Star t: March 03, 2025 End: March 03, 2025 Team Status: Active Member Role/Relationship Status Arti East MD Primary Care Provider Active St art: March 03, 2025 Dr. Kirk Fernandez MD Attending Provider Active S tart: March 03, 2025 Team Status: Inactive Member Role/Relationship Status Arti East MD Primary Care Provider Active St art: February 21, 2025 End: February 21, 2025 Kimberlyn East MD Referring Provider Active Start : February 21, 2025 End: February 21, 2025 BLANCA Ellison Attending Provider Active Star t: February 21, 2025 End: February 21, 2025 Team Status: Inactive Member Role/Relationship Status Dates Kimberlyn East MD Primary Care Provider Active St art: March 03, 2025 End: March 03, 2025 BLANCA Ellison Attending Provider Active Star t: March 03, 2025 End: March 03, 2025 BLANCA Ellison Referring Provider Active Star t: March 03, 2025 End: March 03, 2025 Team Status: Active Member Role/Relationship Status Dates Kimberlyn East MD Primary Care Provider Active St art: March 03, 2025 Dr. Kirk Fernandez MD Attending Provider Active S tart: March 03, 2025 BLANCA Ellison Referring Provider Active Star t: March 03, 2025 Team Status: Active Member Role/Relationship Status Dates Dr. Chriss Cruz MD Primary Care Provider Active Start: March 12, 2025 Dr. Chriss Cruz MD Family Provider Active Sta rt: March 12, 2025 Dr. Chriss Cruz MD Referring Provider Active Start: March 12, 2025 Dr. Jimmie Ibarra MD Attending Provider Active S tart: March 12, 2025 Dr. Radha Kelley DO Other Provider Active Sta rt: March 12, 2025 Team Status: Inactive Member Role/Relationship Status Dates Kimberlyn East MD Primary Care Provider Active St art: April 21, 2025 End: April 21, 2025 Kimberlyn East MD Referring Provider Active Start : April 21, 2025 End: April 21, 2025 Dr. Robb Paulson MD Attending Provider Active Start: April 21, 2025 End: April 21, 2025 Cake Tester Relationship Specialty Start Date End Date Kimberlyn East MD PCP - General Family Medicine 11/08/24 Cake Tester Relationship Specialty Start Date End Date Kimberlyn East MD PCP - General Family Medicine 11/08/24 Team Status: Inactive Member Role/Relationship Status Dates Kimberlyn East MD Primary Care Provider Active St art: April 21, 2025 End: April 21, 2025 Kimberlyn East MD Referring Provider Active Start : April 21, 2025 End: April 21, 2025 Dr. Robb Paulson MD Attending Provider Active Start: April 21, 2025 End: April 21, 2025 Team Status: Active Member Role/Relationship Status Dates Dr. Chriss Cruz MD Primary Care Provider Active Start: April 25, 2025 Dr. Chriss Cruz MD Family Provider Active Sta rt: April 25, 2025 Dr. Chriss Cruz MD Referring Provider Active Start: April 25, 2025 Dr. Jimmie Ibarra MD Attending Provider Active S tart: April 25, 2025 Dr. Radha Kelley DO Other Provider Active Sta rt: April 25, 2025 Team Status: Active Member Role/Relationship Status Arti East MD Primary Care Provider Active St art: May 02, 2025 Kimberlyn East MD Referring Provider Active Start : May 02, 2025 Dr. Robb Paulson MD Attending Provider Active Start: May 02, 2025 Team Status: Active Member Role/Relationship Status Arti East MD Primary Care Provider Active St art: May 02, 2025 Dr. Kirk Fernandez MD Attending Provider Active S tart: May 02, 2025 Team Status: Inactive Member Role/Relationship Status Arti East MD Primary Care Provider Active St art: May 07, 2025 End: May 07, 2025 Kimberlyn East MD Referring Provider Active Start : May 07, 2025 End: May 07, 2025 Dr. Aquiles Warren DO Attending Provider Active Start: May 07, 2025 End: May 07, 2025 Team Status: Active Member Role/Relationship Status Arti East MD Primary care physician Active Team Status: Inactive Member Role/Relationship Status Arti East MD Primary care physician Active S tart: February 21, 2025 End: February 21, 2025 Kimberlyn East MD Referring Provider Active Start : February 21, 2025 End: February 21, 2025 BLANCA Ellison Attending physician Active Sta rt: February 21, 2025 End: February 21, 2025 Team Status: Inactive Member Role/Relationship Status Arti East MD Primary care physician Active S tart: March 03, 2025 End: March 03, 2025 BLANCA Ellison Attending physician Active Sta rt: March 03, 2025 End: March 03, 2025 BLANCA Ellison Referring Provider Active Star t: March 03, 2025 End: March 03, 2025 Team Status: Active Member Role/Relationship Status Dates Kimberlyn East MD Primary care physician Active S tart: March 03, 2025 Dr. Kirk Fernandez MD Attending physician Active Start: March 03, 2025 BLANCA Ellison Referring Provider Active Star t: March 03, 2025 Team Status: Inactive Member Role/Relationship Status Dates Kimberlyn East MD Primary care physician Active S tart: April 21, 2025 End: April 21, 2025 Kimberlyn East MD Referring Provider Active Start : April 21, 2025 End: April 21, 2025 Dr. Robb Paulson MD Attending physician Active Start: April 21, 2025 End: April 21, 2025 Team Status: Active Member Role/Relationship Status Dates Dr. Chriss Cruz MD Primary care physician Active Start: April 25, 2025 Dr. Chriss Cruz MD Referring Provider Active Start: April 25, 2025 Dr. Jimmie Ibarra MD Attending physician Active Start: April 25, 2025 Dr. Radha Kelley DO Nurse Practitioner Active Start: April 25, 2025 Team Status: Inactive Member Role/Relationship Status Dates Kimberlyn East MD Primary care physician Active S tart: May 02, 2025 End: May 02, 2025 Kimberlyn East MD Referring Provider Active Start : May 02, 2025 End: May 02, 2025 Dr. Robb Paulson MD Attending physician Active Start: May 02, 2025 End: May 02, 2025 Team Status: Active Member Role/Relationship Status Dates Kimberlyn East MD Primary care physician Active S tart: May 02, 2025 Dr. Kirk Fernandez MD Attending physician Active Start: May 02, 2025 Dr. Robb Paulson MD Referring Provider Active Start: May 02, 2025 Team Status: Inactive Member Role/Relationship Status Dates Kimberlyn East MD Primary care physician Active S tart: May 07, 2025 End: May 07, 2025 Kimberlyn East MD Referring Provider Active Start : May 07, 2025 End: May 07, 2025 Dr. Aquiles Warren DO Attending physician Active Start: May 07, 2025 End: May 07, 2025 Team Status: Inactive Member Role/Relationship Status Dates Kimberlyn East MD Primary care physician Active S tart: April 21, 2025 End: April 21, 2025 Dr. Robb Paulson MD Attending physician Active Start: April 21, 2025 End: April 21, 2025 Dr. Robb Paulson MD Referring Provider Active Start: April 21, 2025 End: April 21, 2025 Team Status: Inactive Member Role/Relationship Status Dates Kimberlyn East MD Primary care physician Active S tart: June 04, 2025 End: June 04, 2025 Dr. Kirk Fernandez MD Attending physician Active Start: June 04, 2025 End: June 04, 2025 Dr. Kirk Fernandez MD Referring Provider Active S tart: June 04, 2025 End: June 04, 2025 Team Status: Active Member Role/Relationship Status Dates Kimberlyn East MD Primary care physician Active S tart: June 04, 2025 Dr. Kirk Fernandez MD Attending physician Active Start: June 04, 2025 Dr. Kirk Fernandez MD Referring Provider Active S tart: June 04, 2025 Dr. Kirk Fernandez MD Nurse Practitioner Active S tart: June 04, 2025 Team Status: Inactive Member Role/Relationship Status Dates Kimberlyn East MD Primary care physician Active S tart: April 21, 2025 End: April 21, 2025 Dr. Robb Paulson MD Attending physician Active Start: April 21, 2025 End: April 21, 2025 Dr. Robb Paulson MD Referring Provider Active Start: April 21, 2025 End: April 21, 2025 Team Status: Active Member Role/Relationship Status Dates Dr. Chriss Cruz MD Primary care physician Active Start: April 25, 2025 Dr. Chriss Cruz MD Referring Provider Active Start: April 25, 2025 Dr. Jimmie Ibarra MD Attending physician Active Start: April 25, 2025 Dr. Radha Kelley DO Nurse Practitioner Active Start: April 25, 2025 Team Status: Inactive Member Role/Relationship Status Dates Kimberlyn East MD Primary care physician Active S tart: May 02, 2025 End: May 02, 2025 Kimberlyn East MD Referring Provider Active Start : May 02, 2025 End: May 02, 2025 Dr. Robb Paulson MD Attending physician Active Start: May 02, 2025 End: May 02, 2025 Team Status: Active Member Role/Relationship Status Arti East MD Primary care physician Active S tart: May 02, 2025 Dr. Kirk Fernandez MD Attending physician Active Start: May 02, 2025 Dr. oRbb Paulson MD Referring Provider Active Start: May 02, 2025 Team Status: Inactive Member Role/Relationship Status Arti East MD Primary care physician Active S tart: May 07, 2025 End: May 07, 2025 Kimberlyn Esat MD Referring Provider Active Start : May 07, 2025 End: May 07, 2025 Dr. Aquiles Warren DO Attending physician Active Start: May 07, 2025 End: May 07, 2025 Team Status: Inactive Member Role/Relationship Status Arti East MD Primary care physician Active S tart: June 04, 2025 End: June 04, 2025 Dr. Kirk Fernandez MD Attending physician Active Start: June 04, 2025 End: June 04, 2025 Dr. Kirk Fernandez MD Referring Provider Active S tart: June 04, 2025 End: June 04, 2025 Team Status: Active Member Role/Relationship Status Arti East MD Primary care physician Active S tart: June 04, 2025 Dr. Kirk Fernandez MD Attending physician Active Start: June 04, 2025 Dr. Kirk Fernandez MD Referring Provider Active S tart: June 04, 2025 Dr. Kirk Fernandez MD Nurse Practitioner Active S tart: June 04, 2025 Team Status: Inactive Member Role/Relationship Status Arti East MD Primary care physician Active S tart: June 18, 2025 End: June 18, 2025 Kimberlyn East MD Referring Provider Active Start : June 18, 2025 End: June 18, 2025 SERGE Mujica Attending physician Active Start: June 18, 2025 End: June 18, 2025 Team Status: Inactive Member Role/Relationship Status Arti East MD Primary care physician Active S tart: June 25, 2025 End: June 25, 2025 Kimberlyn East MD Referring Provider Active Start : June 25, 2025 End: June 25, 2025 BLANCA Ellison Attending physician Active Sta rt: June 25, 2025 End: June 25, 2025 Team Status: Inactive Member Role/Relationship Status Dates Kimberlyn East MD Primary care physician Active S tart: June 30, 2025 End: June 30, 2025 Kimberlyn East MD Referring Provider Active Start : June 30, 2025 End: June 30, 2025 Dr. Robb Paulson MD Attending physician Active Start: June 30, 2025 End: June 30, 2025 Team Status: Active Member Role/Relationship Status Dates Kimberlyn East MD Primary care physician Active S tart: June 30, 2025 Dr. Robb Paulson MD Attending physician Active Start: June 30, 2025 Dr. Robb Paulson MD Referring Provider Active Start: June 30, 2025 Goals (unrecognized section and content) Goals may be documented in a n alternate sectionGoals may be documented in an alternate sectionGoals may be documented in an alternate sectionGoals may be documented in an alternate sectionGoals may be documented in an alternate sectionGoals may be documented in an alternate sectionGoals may be documented in an alternate sectionGoals may be documented in an alternate sectionGoals may be documented in an alternate sectionGoals may be documented in an alternate sectionGoals may be documented in an alternate sectionGoals may be documented in an alternate sectionGoals may be documented in an alternate sectionGoals may be documented in an alternate sectionGoals may be documented in an alternate sectionGoals may be documented in an alternate sectionGoals may be documented in an alternate section Scheduled Active and Recently Administ ered Medications (unrecognized section and content) Medication Order 01/25/2025 01/26/2025 01/27/2025 cloNIDine (CATAPRES) tablet 0.1 mg (COMPLETED) 0.1 mg, Oral, ONCE, 1 dose, On Mon01/27/25 at 1545 1517 (Given - Provid er: Sofia Cardoza RN) cloNIDine (CATAPRES) tablet 0.1 mg (COMPLETED) 0.1 mg, Oral, ONCE, 1 dose, On Mon01/27/25 at 1615 1541 (Given - Provid er: Sofia Cardoza RN) Flumazenil (ROMAZICON) injection 0.2 mg 0.2 mg, Intravenous, SEE ADMIN INSTRUCTIONS, Starting on Mon01/27/25 at 1150, Until Mon01/27/25 at 1549, Vial to bedside in procedure room. Administer ONLY UNDER THE DIRECTION OF PHYSICIAN. Reversal of Conscious Sedation Initial dose: 0.2 mg Repeat doses: 0.2 mg repeated at one-minute intervals Maximum total cumulative dose: 1mg, Intra-op/Intra-Proc hydrALAZINE (APRESOLINE) injection 10 mg (COMPLETED) 10 mg, Intravenous, ONCE, 1 dose, On Mon01/27/25 at 1200 1132 (Given - Provid er: Lisa Vines RN) Insulin lispro (HUMALOG) injection 1 Units (COMPLETED)(Linked Group 1) 1 Units, Subcutaneous, ONCE, 1 dose, On Mon01/27/25 at 1200, . Warning! Confirm patient. If insulin pen is used, then the pen is for labeled individual patient use ONLY. 1158 (Given - Provid er: Lisa Vines RN) Iohexol (OMNIPAQUE) 300 MG/ML vial 50 mL (COMPLETED) 50 mL, Intravenous, ONCE, 1 dose, On Mon01/27/25 at 1200, Extravasation Risk, Intra-op/Intra-Proc 1200 (Due)1308 (Give n - Provider: Marshal Paris MD) Naloxone (NARCAN) injection 0.1 mg(Linked Group 2) 0.1 mg, Intravenous, SEE ADMIN INSTRUCTIONS, Starting on Mon01/27/25 at 1150, Until Mon01/27/25 at 1549, If RR </= 7 per min and difficult to arouse give naloxone 0.1 mg q 2 mins until RR > 8/min and/or drowsiness abates. Contact provider. If no response is noted after 4 doses, consider other causes of respiratory depression. Vial to bedside in procedure room. Administer ONLY UNDER THE DIRECTION OF PHYSICIAN to a maximum dose of 2mg., Intra-op/Intra-Proc Naloxone (NARCAN) injection 0.4 mg(Linked Group 2) 0.4 mg, Intravenous, SEE ADMIN INSTRUCTIONS, Starting on Mon01/27/25 at 1150, Until Mon01/27/25 at 1549, If patient APNEIC and difficult to arouse: Give naloxone 0.4 mg q2 minutes until RR> 8/min and call a 'code blue'. If no response is noted after 4 doses, consider other causes of respiratory depression. Vial to bedside in procedure room. Administer ONLY UNDER THE DIRECTION OF PHYSICIAN to a maximum dose of 2mg., Intra-op/Intra-Proc PRN Medication Order 01/25/2025 01/26/2025 01/27/2025 Dextrose 50% injection 7.5-25 g(Linked Group 1) 7.5-25 g, Intravenous, ADMINISTER DIRECTED, Starting on Mon01/27/25 at 1118, Until Mon01/27/25 at 1837, Blood glucose <80 mg/dL, For patients who are not alert, are NPO, or are on IV insulin infusion administer as directed per Hypoglycemia in Non- Adults Clinical Practice Guideline. For Blood Glucose: 60-79 mg/dL administer 7.5 gm (15ml); 45-59 mg/dL administer 12.5 gm (25ml); less than 45mg/dL administer 25gm (50ml). ++ If additional dextrose 50% needed, contact pharmacy or obtain from crash cart ++ fentaNYL (SUBLIMAZE) injection 0-300 mcg 0-300 mcg, Intravenous, Administer over 2 Minutes, ADMINISTER DIRECTED, Starting on Mon01/27/25 at 1150, Until Mon01/27/25 at 1549, intraoperative pain management, Administer during procedure as directed by physician. Recorded MAR dose is cumulative amount given during procedure., Intra-op/Intra-Proc 1238 (Given - Provid er: Kimi Sellers RN)1259 (Given - Provider: Kimi Sellers RN) Lidocaine 2 % injection (COMPLETED) ONCE NEEDED, 1 dose, Starting on Mon01/27/25 at 1307, Until Mon01/27/25 at 1307, Intra-op/Intra-Proc 1307 (Given - Provid er: Marshal Paris MD) midazolam (VERSED) injection 0-10 mg 0-10 mg, Intravenous, ADMINISTER DIRECTED, Starting on Mon01/27/25 at 1150, Until Mon01/27/25 at 1549, Procedural sedation, Administer during procedure as directed by physician. Recorded MAR dose is cumulative amount given during procedure., Intra-op/Intra-Proc 1238 (Given - Provid er: Marshal Paris MD)1300 (Given - Provider: Kimi Sellers RN) Ondansetron 4mg/2ml (ZOFRAN) injection 4 mg 4 mg, Intravenous, ONCE NEEDED, 1 dose, Starting on Mon01/27/25 at 1150, Until Mon01/27/25 at 1837, Nausea, Intra-op/Intra-Proc No Frequency Medication Order 01/25/2025 01/26/2025 01/27/2025 cloNIDine (CATAPRES) tablet 1 dose, Starting on Mon01/27/25 at 1530, Until Mon01/27/25 at 1837, Created by cabinet override, Post-op/Post-Proc 1545 (Canceled Entry - Provider: System Discharge - Comment: Automatically canceled at discontinue of medication order) Linked Groups Order Group 1: Insulin lispro (HUMALOG) injection 1 Units (COMPLETED)Jump to med 1 Units, Subcutaneous, ONCE, 1 dose, On Mon01/27/25 at 1200, . Warning! Confirm patient. If insulin pen is used, then the pen is for labeled individual patient use ONLY. And Dextrose 50% injection 7.5-25 gJump to med 7.5-25 g, Intravenous, ADMINISTER DIRECTED, Starting on Mon01/27/25 at 1118, Until Mon01/27/25 at 1837, Blood glucose <80 mg/dL, For patients who are not alert, are NPO, or are on IV insulin infusion administer as directed per Hypoglycemia in Non- Adults Clinical Practice Guideline. For Blood Glucose: 60-79 mg/dL administer 7.5 gm (15ml); 45-59 mg/dL administer 12.5 gm (25ml); less than 45mg/dL administer 25gm (50ml). ++ If additional dextrose 50% needed, contact pharmacy or obtain from [facility] cart ++ Group 2: Naloxone (NARCAN) injection 0.1 mgJump to med 0.1 mg, Intravenous, SEE ADMIN INSTRUCTIONS, Starting on Mon01/27/25 at 1150, Until Mon01/27/25 at 1549, If RR </= 7 per min and difficult to arouse give naloxone 0.1 mg q 2 mins until RR > 8/min and/or drowsiness abates. Contact provider. If no response is noted after 4 doses, consider other causes of respiratory depression. Vial to bedside in procedure room. Administer ONLY UNDER THE DIRECTION OF PHYSICIAN to a maximum dose of 2mg., Intra-op/Intra-Proc Or Naloxone (NARCAN) injection 0.4 mgJump to med 0.4 mg, Intravenous, SEE ADMIN INSTRUCTIONS, Starting on Mon01/27/25 at 1150, Until Mon01/27/25 at 1549, If patient APNEIC and difficult to arouse: Give naloxone 0.4 mg q2 minutes until RR> 8/min and call a 'code blue'. If no response is noted after 4 doses, consider other causes of respiratory depression. Vial to bedside in procedure room. Administer ONLY UNDER THE DIRECTION OF PHYSICIAN to a maximum dose of 2mg., Intra-op/Intra-Proc FOR RECORDS PERTAINING TO PATIENTS WHO ARE [...] BE BASED ON THE PRIMARY CLINICAL RECORDS. [email or web address] provides no warranty or guarantee of the accuracy or completeness of information in this document.
--- NOTE | 2025-08-21 09:00 | CT_ITS ---
PROCEDURE: ABDOMEN/PELVIS W IV CONT ONLY 08/21/2025 REASON FOR EXAM: PAINLESS HEMATURIA TECHNIQUE: Procedure Code: [id number] Modality: CT Procedure: ABDOMEN/PELVIS W IV CONT ONLY Coronal and Sagittal reconstruction series were provided. CONTRAST: Isovue 370 VOLUME: 75 mL One or more dose reduction techniques were used (e.g., Automated exposure control, adjustment of the mA and/or kV according to patient size, use of iterative reconstruction technique. RADIATION DOSE SUMMARY: CTDlvol: 5.72 mGy DLP: 1056.33 mGycm COMPARISON: None. FINDINGS: Lung bases: Clear. Liver: Unremarkable. Gallbladder: Unremarkable. Spleen: Splenomegaly, 16.3 cm. Pancreas: Unremarkable. Adrenals: Unremarkable. Kidneys: Perinephric fat stranding. No hydronephrosis. No nephrolithiasis. Bilateral simple kidney cysts with the largest measures 1.4 cm. Bladder: Bladder wall thickening may represent cystitis. Reproductive Organs: Unremarkable. Bowel: No bowel thickening. No bowel obstruction. Colonic diverticulosis with evidence of acute diverticulitis. The bowel are distended with fluid consistent with enterocolitis. Appendix: Unremarkable. Lymph nodes: No lymphadenopathy. Vasculature: No aneurysm. Splenomegaly and prominent splenic and gastro splenic varices concerning for portal hypertension and liver steatosis. Peritoneum / Retroperitoneum: No free air or free fluid. Bones: No acute bony elements. CT/Abdomen/Pelvis W IV Cont ONLY IMPRESSION: Bladder wall thickening may represent cystitis. Perinephric fat stranding without hydronephrosis or nephrolithiasis consistent with urinary tract infection. Splenomegaly and prominent splenic and gastro-splenic varices concerning for po rtal hypertension and liver steatosis. Colonic diverticulosis without evidence of acute diverticulitis. Reading Location: [facility]
[2025-08-21 09:22] LABS: Anion Gap 15 (7-18); BUN 28 mg/dL (4-19); BUN/Creat Ratio 5.2 RATIO (10-20); Calcium,Total 8.3 mg/dL (7.6-11.0); Carbon Dioxide 28.3 mmol/L (20.0-29.0); Chloride 95 mmol/L (96-106); Estimated Creatinine Clearance 16.64 ml/min (50-250); Glucose 180 mg/dL (70-99); Potassium 4.0 mmol/L (3.5-5.1)
[2025-08-21 09:35] LABS: Mucous, Urine 0 SEEN /hpf (<or=2+); Squamous Epithelial Cells - UA 0 SEEN /hpf (0-5)
[2025-08-21 09:37] LABS: Glucose, Dipstick 100 mg/dl (Normal); Ketone-Dipstick Negative (Negative); Leukocyte Esterase-Dipstick 500 /ul (Negative); Nitrite-Dipstick Negative (Negative); Occult Blood-Urine 250 /ul (Negative); Protein-Dipstick 500 mg/dl (Negative); Specific Gravity, Urine 1.015 (1.002-1.030); Urine Bilirubin Dipstick Negative (Negative)
[2025-08-21 09:48] LABS: Color, Urine SEE COMMENT BELOW (Yellow); Red Blood Cells-Urine > 100 SEEN /hpf (0-5)
[2025-08-21 10:14] VITALS: BP 175/77; PULSE 64; RESP 15; TEMP 36.6; O2SAT 99
[2025-08-21] MEDS: 0.9% Saline Lock 10 ML Syringe IV (10:20)
== END 2025-08-21 10:25 | disposition home or self-care (01) ==
PROVIDERS: Emergency Provider Student in an Organized Health Care Education/Training Program; PCP Family Medicine; Visit Provider Student in an Organized Health Care Education/Training Program
DX: N39.0 Urinary tract infection, site not specified (principal); I12.0 Hypertensive chronic kidney disease with stage 5 chronic kidney disease or end stage renal disease; N18.6 End stage renal disease; E11.22 Type 2 diabetes mellitus with diabetic chronic kidney disease; Z79.4 Long term (current) use of insulin; E78.00 Pure hypercholesterolemia, unspecified; R31.9 Hematuria, unspecified; D63.1 Anemia in chronic kidney disease; Z87.891 Personal history of nicotine dependence; Z79.82 Long term (current) use of aspirin; Z99.2 Dependence on renal dialysis; Z85.038 Personal history of other malignant neoplasm of large intestine; Z92.21 Personal history of antineoplastic chemotherapy; Z79.899 Other long term (current) drug therapy; K21.9 Gastro-esophageal reflux disease without esophagitis; Z90.49 Acquired absence of other specified parts of digestive tract
CPT/HCPCS: 36591; 74177; 80048; 81001; 85025; 87086; 87088; 87186; 99285; A4216; Q9967

== ENCOUNTER 2025-08-22 08:42 | Inpatient (IN) | payer MEDICAID, SELFPAY ==
[2025-08-22] VITALS (14 sets, daily range): BP systolic 138–180; BP diastolic 66–93; PULSE 60–84; RESP 16–18; TEMP 36.6–36.9; O2SAT 98–100; BMI 29.9; BMI 29.4
--- NOTE | 2025-08-22 09:07 | EX.ED.DYSGE1 ---
HPI History of Present Illness Chief Complaint: Complaint Informant: patient and parent (Mother) Narrative Narrative: 54-year-old diabetic male on dialysis presenting to the emergency room with urinary symptoms. Patient states that on Monday when he was at dialysis he was experiencing chills. He states that yesterday he was seen in the emergency department for blood in his urine and was diagnosed with a urinary tract infection. He has had 1 dose of his antibiotics and states that he is not any better in fact he states that he feels worse. He notes nausea and right sided back pain. He states that he is having urinary frequency but is only going small amounts. He has not seen any clots today. He states his temperature was 99 degrees. He takes aspirin but no other blood thinners. He has a history of anemia of chronic disease. He was started on Keflex yesterday. [facility] Medical History Vascular dialysis catheter in place History of hemodialysis History of renal dialysis Hemodialysis patient Anemia due to chronic blood loss Positive fecal occult blood test Cancer Insulin dependent diabetes mellitus History of renal disease Low iron Easy bruising Wears glasses Arthritis Fatty liver Restless legs Former smoker Leg cramps History of edema History of stress test History of echocardiogram Syncope Hx of vertigo Therapeutic drug monitoring History of colon cancer Trigeminal nerve disorder portacath placement GERD (gastroesophageal reflux disease) High cholesterol Hepatitis C Depressive disorder Obesity Seizure disorder Asthma History of alcohol abuse Pancreatitis Sezary disease Home Medications ?Medication ?Instructions ?Recorded ?Last Taken ?Type cholecalciferol (vitamin D3) 25 1,000 unit PO TUTHSA supplement 10/10/13 11/13/15 History mcg (1,000 unit) capsule sertraline 100 mg tablet 100 mg PO QHS depression 07/18/14 06/04/25 History multivitamin with folic acid 400 1 tab PO DAILY supplement 10/21/14 11/13/15 History mcg tablet rosuvastatin 40 mg tablet 40 mg PO QHS cholesterol 11/24/16 07/23/24 01:00 History fish oil-dha-epa 1,200 mg-144 1 each PO DAILY supplement 11/14/20 Unknown History mg-216 mg capsule albuterol sulfate 90 mcg/actuation 1 - 2 puff inhalation Q4H PRN PRN 10/16/23 Unknown Rx aerosol inhaler (Ventolin HFA) Wheezing #1 inh gemfibrozil 600 mg tablet 600 mg PO BID pancreatitis 12/08/23 12/07/23 10:00 History prevention nadolol 40 mg tablet 40 mg PO BID heart 12/18/23 06/04/25 History calcitriol 0.5 mcg capsule 0.5 mcg PO DAILY bone health 05/30/24 Unknown History clonidine HCl 0.1 mg tablet 0.1 mg PO TID hypertension 06/12/24 07/23/24 History ergocalciferol (vitamin D2) 1,250 1,250 mcg PO MOWEFR VITAMIN 07/03/24 Unknown History mcg (50,000 unit) capsule aripiprazole 2 mg tablet 2 mg PO QHS mental health 07/04/24 Unknown History losartan 50 mg tablet 50 mg PO DAILY 30 days #30 tabs 07/10/24 07/23/24 01:00 Rx blood sugar diagnostic (OneTouch #100 ea 10/31/24 Unknown Rx Verio test strips) blood-glucose meter (OneTouch #1 ea 10/31/24 Unknown Rx Verio Reflect kit) pantoprazole 20 mg tablet,delayed 40 mg (2 x 20 mg) PO DAILY reflux 11/19/24 Unknown Rx release #90 TABLETS insulin glargine 100 unit/mL (3 25 unit (0.25 mL) subcut ONCE 12/18/24 Unknown Rx mL) subcutaneous pen (Lantus diabetes #22.5 mL Solostar U-100 Insulin) pen needle, diabetic 31 gauge x #100 ea 12/18/24 Unknown Rx 5/16 (Comfort EZ Pen Kite) sucroferric oxyhydroxide 500 mg 500 mg PO QAC 05/07/25 Unknown History chewable tablet (Velphoro) clopidogrel 75 mg tablet (Plavix) 75 mg PO DAILY #30 tabs 06/04/25 Unknown Rx hydralazine 50 mg tablet 50 mg PO TID 06/04/25 06/04/25 History aspirin 81 mg tablet,delayed 81 mg PO QDAY 06/18/25 Unknown History release (Adult Aspirin Regimen) carbamazepine 200 mg tablet 600 mg (3 x 200 mg) PO BID 06/30/25 Unknown Rx seizures #540 tabs gabapentin 300 mg capsule 300 mg PO BID #180 caps 06/30/25 Unknown Rx trazodone 50 mg tablet 50 mg PO QHS PRN insomnia #90 tabs 06/30/25 Unknown Rx cholestyramine 4 gram oral powder 4 g PO QHS #231 GMS 07/29/25 Unknown Rx (Cholestyramine Light) insulin lispro 100 unit/mL 18 unit (0.18 mL) subcut TID #60 mL 08/15/25 Unknown Rx subcutaneous pen (Admelog SoloStar U-100 Insulin lispro) cephalexin 250 mg capsule 250 mg PO Q12H 7 days #14 caps 08/21/25 Unknown Rx Allergy/AdvReac Type Severity Reaction Status Date / Time doxazosin (From Cardura) Allergy Severe Bleeding Verified 08/22/25 08:45 erythromycin base Allergy Severe Hives Verified 08/22/25 08:45 loratadine (From Claritin) Allergy Severe Rash Verified 08/22/25 08:45 amlodipine AdvReac nausea/diar Verified 08/22/25 08:45 darryl/dizzin ess Family History Grandmother Cervical cancer Diabetes Hypertension Trigeminal neuralgia Mother Uterine cancer Arthritis Diabetes Hypertension Grandfather Heart disease Arthritis Diabetes Hypertension Unknown Diabetes Arthritis Father Arthritis Diabetes Hypertension Sister Diabetes Hypertension Uncle CVA (cerebral vascular accident) Aunt Cerebral aneurysm Surgical History Hx of esophagogastroduodenoscopy Hx of appendectomy H/O left hemicolectomy Social History Smoking Status: Former smoker Tobacco: How many years used: 20 how long ago did patient quit smoking: quit 2003 second hand exposure: No alcohol intake: former details: quit 2003 substance use type: former substance user Date of last use: Used Marijuana since he was a teenager ROS ROS ED Constitutional Constitutional ED: Reports chills, fever(s) and subjective; Denies weight loss Eyes Eyes: Denies change in vision or diplopia ENT ENT ED: Denies ear pain, rhinorrhea or sore throat Cardiovascular Cardiovascular: Denies chest pain, orthopnea, palpitations or racing heartbeat Respiratory/Chest Respiratory/Chest: Denies cough, dyspnea or orthopnea Gastrointestinal Gastrointestinal: Reports nausea; Denies abdominal pain, diarrhea or vomiting Genitourinary Genitourinary ED: Reports hematuria and urinary frequency; Denies dysuria Musculoskeletal Musculoskeletal: Reports back pain; Denies arthralgias or myalgias Integumentary Denies abscess or rash Neurologic Neurologic: Denies headache(s) or weakness Psychiatric Psychiatric: Denies anxiety, depression, suicidal ideation or suicidal thoughts Endocrine Endocrinology: Denies polydipsia, polyphagia or polyuria Allergic/Immunologic Allergic/Immunologic ED: Denies mouth swelling, tongue swelling or urticaria EXAM Physical Exam Const Vital Signs: 08/22/25 08:43 08/22/25 08:44 08/22/25 09:44 Temperature 98.0 F 98.0 F 98 F Temperature Source Oral Oral Oral Pulse Rate 63 63 84 Respiratory Rate 18 18 16 Blood Pressure 169/74 H 169/74 H 180/69 H Blood Pressure Mean 105 105 106 Pulse Ox 100 100 98 Oxygen Delivery Method Room Air Room Air Positive well nourished, well developed and obese General Appearance ED: well developed and NAD Nutritional Appearance: obese HEENT Reports normocephalic, head/scalp atraumatic and moist mucous membranes Eyes PERRL and EOMs intact bilaterally Neck no lymphadenopathy, supple and no JVD Resp normal respiratory effort and clear to auscultation bilaterally Cardio regular rate, regular rhythm and no murmurs GI GI Narrative: Patient has diffusely tender abdomen noting tenderness particularly in the left upper quadrant. Auscultation: normoactive bowel sounds Palpation: soft and tender; Negative for guarding or rebound tenderness present Back/Spine normal ROM General Back: CVA tenderness right Extremity General Extremety ED: Yes edema General Extremity: edema bilateral lower extremity Details: mild Neuro oriented x3 and CN's II-XII intact bilaterally Sensorium / Orientation: alert Motor Exam: strength 5/5 throughout Psych mental status grossly normal Mood & Affect: Negative for depressed or tearful Skin no rashes or lesions noted and no wounds MDM MDM MDM Narrative Medical decision making narrative: Differential diagnosis includes bacteremia sepsis pyelonephritis UTI acute on chronic kidney injury electrolyte abnormalities White count is elevated today at 11.9 hemoglobin 8.9 platelet count of 129. INR is 1.4. Lactic acid is normal. Creatinine now 7.38 potassium 4.2 normal LFTs. Urinalysis demonstrates 5-10 red blood cells 5-10 white blood cells no bacteria seen. Urine culture from yesterday is not resulted. I reviewed the patient's chart from yesterday as well as the CT scan which showed perinephric stranding. Concerned that he is developing pyelonephritis possibly bacteremia. He received a gram of IV Rocephin. Plan of care will be admission in the hospital. History & Record Review Discussion w/independent historian: Patient and Family Additional record(s) reviewed:: Prior ED visit and Prior labs Lab Data Attestation: I reviewed the patient's lab results. Labs: Laboratory Results - last 24 hr 08/22/25 08/22/25 09:56 10:00 WBC 11.9 H RBC 2.61 L Hgb 8.9 L Hct 25.8 L MCV 98.9 H MCH 34.1 H MCHC 34.5 RDW Std Deviation 59.3 H RDW Coeff of Ever 16.3 H Plt Count 129 L MPV 9.8 Immature Gran % (Auto) 0.800 Neut % (Auto) 83.7 H Lymph % (Auto) 9.6 L Heard % (Auto) 5.5 Eos % (Auto) 0.2 Baso % (Auto) 0.2 Absolute Neuts (auto) 9.9 H Absolute Lymphs (auto) 1.14 Nucleated RBC % 0 PT 17.7 H INR 1.4 APTT 36.3 H Sodium 134 L Potassium 4.2 Chloride 91 L Carbon Dioxide 25.9 Anion Gap 17 BUN 45 H Creatinine 7.38 H Estim Creat Clear Calc 12.15 L Est GFR (MDRD) Non-Af 8 L BUN/Creatinine Ratio 6.1 L Glucose 191 H Lactic Acid < 1.0 Calcium 8.5 Total Bilirubin 0.57 Direct Bilirubin 0.33 H AST 16 ALT 11 Alkaline Phosphatase 105 Total Protein 7.5 Albumin 4.3 Globulin 3.2 Lipase 71 Urine Color Yellow Urine Clarity Sl. Cloudy Urine pH 8.0 Ur Specific [place] 1.015 Urine Protein 500 H Urine Glucose (UA) 100 H Urine Ketones 5 H Urine Occult Blood 150 H Urine Nitrite Negative Urine Bilirubin Negative Urine Urobilinogen Normal Ur Leukocyte Esterase 100 H Urine RBC 5-10 SEEN Urine WBC 5-10 SEEN Ur Squamous Epith Cells 0 SEEN Urine Bacteria 0 SEEN Urine Mucus 0 SEEN Management Discussion w/another healthcare provider: Hospitalist (Dr Jean Baptiste) Discharge Plan Triage Chief Complaint: Complaint ED Provider: Dillon Duncan Dx/Rx/DC Orders Prescriptions: No Action clonidine HCl 0.1 mg tablet 0.1 mg PO TID (DME) pen needle, diabetic [Comfort EZ Pen Kite] 31 gauge x 5/16 needle See Rx Instructions .Route Qty: 100 5RF Rx Instructions: 4x/day insulin glargine [Lantus Solostar U-100 Insulin] 100 unit/mL (3 mL) insulin pen 25 unit subcut ONCE Qty: 22.5 1RF Velphoro 500 mg tablet,chewable 500 mg PO QAC aspirin [Adult Aspirin Regimen] 81 mg tablet,delayed release (DR/EC) 81 mg PO QDAY carbamazepine 200 mg tablet 600 mg PO BID Qty: 540 2RF gabapentin 300 mg capsule 300 mg PO BID Qty: 180 2RF trazodone 50 mg tablet 50 mg PO QHS PRN (Reason: insomnia) Qty: 90 2RF cholecalciferol (vitamin D3) 1,000 UNIT capsule 1,000 unit PO TUTHSA Patient Comments: VITAMIN sertraline 100 MG tablet 100 mg PO QHS multivitamin with folic acid 1 TABLET tablet 1 tab PO DAILY calcitriol 0.5 mcg capsule 0.5 mcg PO DAILY fish oil-dha-epa 1 EACH capsule 1 each PO DAILY gemfibrozil 600 mg tablet 600 mg PO BID ergocalciferol (vitamin D2) 1,250 mcg (50,000 unit) capsule 1,250 mcg PO MOWE Patient Comments: takes on wednesdays aripiprazole 2 mg Tablet 2 mg PO QHS losartan 50 mg Tablet 50 mg PO DAILY 30 Days Qty: 30 0RF albuterol sulfate [Ventolin HFA] 90 mcg/actuation HFA aerosol inhaler 1 - 2 puff inhalation Q4H PRN PRN (Reason: Wheezing) Qty: 1 0RF nadolol 40 mg tablet 40 mg PO BID Patient Comments: take with 20mg tablet. total dose = 60mg hydralazine 50 mg tablet 50 mg PO TID clopidogrel [Plavix] 75 mg tablet 75 mg PO DAILY Qty: 30 0RF cephalexin 250 mg capsule 250 mg PO Q12H 7 Days Qty: 14 0RF rosuvastatin 40 MG tablet 40 mg PO QHS (DME) OneTouch Verio test strips Strip See Rx Instructions .Route Qty: 100 5RF Rx Instructions: TID (DME) blood-glucose meter [OneTouch Verio Reflect] Kit See Rx Instructions .Route Qty: 1 0RF Rx Instructions: As directed pantoprazole 20 mg tablet,delayed release (DR/EC) 40 mg PO DAILY Qty: 90 3RF Cholestyramine Light 4 gram powder 4 g PO QHS Qty: 231 2RF insulin lispro [Admelog SoloStar U-100 Insulin] 100 unit/mL insulin pen 18 unit subcut TID Qty: 60 1RF Primary Care Provider: Kimberlyn Garcia Referrals: Kimberlyn Garcia MD [Primary Care Provider, Family Practice] Print Language: [place] African
--- OUTSIDE RECORDS SUMMARY | 2025-08-22 09:29 | XMS RPT_ITS | CCD ---
Author Organization [facility] Care Team Providers Care Land Surveyor Assistant Name Role Phone Jeancarlos Wolff MD Unavailable Chriss Cruz MD Primary Care Provider Dr. Chriss Cruz Primary Care Provider Dr. Chriss Cruz Referring Provider Skip GEOLOGICAL TECHNICIAN, SERGE Karimi Attending Provider Jeancarlos Wolff MD Unavailable Chriss Cruz MD Primary Care Provider Dr. Jimmie Ibarra Attending Provider Chriss Cruz MD Primary Care Provider Jeancarlos Wolff MD Unavailable Chriss Cruz MD Primary Care Provider Dr. Chriss Cruz Primary Care Provider Dr. Chriss Cruz Referring Provider Dr. Robb Paulson Attending Provider Dr. Jimmie Ibarra Attending Provider [...] Attending Provider SERGE Timmons Attending Provider Shannan GEOLOGICAL TECHNICIAN, GEOLOGICAL TECHNICIAN-C Maureen Attending Provider FriendDr. Kwan Attending Provider Jeancarlos Wolff MD [facility] Trevin, Dr. Judd Primary Care Provider Topock, Dr. Judd Referring Provider Shannan OWUSU, FRANCOISE-Abram Reddy Attending Provider SERGE Timmons Attending Provider [facility] Dr. Samuel Attending Provider Dr. Robb Paulson Attending Provider FriendDr. Kwan Attending Provider [phone] FriendDr. Kwan Other Provider DO Luciana Garcia Primary Care Provider DO Luciana Garcia Referring Provider Trevin, Dr. Judd Primary Care Provider Topock, Dr. Judd Referring Provider Dr. Chriss Cruz Primary Care Provider Topock, Dr. Judd Referring Provider Dr. Robb Paulson Attending Provider Dr. Aquiles Warren Attending Provider [phone] Dr. Aquiles Warren Other Provider [phone] DO Luciana Garcia Primary Care Provider DO Luciana Garcia Referring Provider Stacey, Dr. Samuel Attending Provider DO Luciana Garcia Primary Care Provider DO Luciana Garcia Referring Provider 1([facility])[phone] Dr. Chriss Cruz Referring Provider 1([facility])[phone] ASHER TimmonsC Grisel Attending Provider 1([facility])[phone] Dr. Kirk Schneider Emergency Provider 1([facility])[phone] Dr. Landry Barber Admit Provider Unavailabl e Dr. Landry Barber Other Provider Unavailabl e Dr. Jamaal Rm Other Provider 1([facility])[phone] Dr. Alfredo Ag Attending Provider 1([facility])[phone] Dr. Alfredo Ag Other Provider 1([facility])[phone] Kelvin, Dr. Kwan Attending Provider 1([facility])[phone] Chriss Cruz MD Primary Care Provider 1([facility])[phone] Haagen BUSINESS PROJECT MANAGER.SAWMILL PRODUCTION WORKER, Lindsay Unavailable Suppan BUSINESS PROJECT MANAGER.SAWMILL PRODUCTION WORKER, Ilene A Unavailable Kimberlyn East MD Primary Care Provider 1([facility])[phone] Suppan BUSINESS PROJECT MANAGER.SAWMILL PRODUCTION WORKER, Ilene A Unavailable Kita GARCIA, Kimberlyn Primary Care Provider Unavailabl e Kita GARCIA, Kimberlyn Primary Care Provider Kita GARCIA, Kimberlyn Primary Care Provider 1([facility])[phone] Dr. Kirk Fernandez MD Attending Provider 1([facility])[phone] Dr. Kirk Fernandez MD Referring Provider 1([facility])[phone] Dr. Kirk Fernandez MD Other Provider 1([facility])[phone] Chriss Cruz MD Primary Care Provider 1([facility] )[phone] Dr. Chriss Cruz MD Referring Provider 1([facility])[phone] Dr. Jimmie Ibarra MD Attending Provider 1([facility])[phone] Dr. Radha Kelley DO Other Provider 1([facility])[phone] Kimberlyn East MD Referring Provider 1([facility])[phone] Iain GEOLOGICAL TECHNICIAN-C, Grisel Attending Provider 1([facility])[phone] Cynthia Valera Attending Provider 1([facility])[phone] Kimberlyn East MD Primary Care Provider [...] S Attending Unavailable SELF, SELF Referring Unavailable KITA, [...] Admitting Unavailable SOBOTKA, LILLIAN A Referring Unavailable KITA, CHALON Primary Care Unavailable ANISA, TYRESE S Referring Unavailable KITA, CHALON Primary Care Unavailable ANISA, TYRESE S Attending Unavailable ANISA, TYRESE S Referring Unavailable KITA, CHALON Primary Care Unavailable ANISA, TYRESE S Attending Unavailable ANISA, TYRESE S Referring Unavailable Kita, Chalon Primary Care Unavailable Robb Paulson Attending Unavailable Robb Paulson Referring Unavailable Kita, Chalon Primary Care Unavailable Torrance, Kirk Referring Unavailable Torrance, Kirk Attending Unavailable Kita, Chalon Primary Care [...] Consulting Unavailable Landry Barber Consulting Unavailable Darren Brenal Consulting Unavailable Oswald Leahy Consulting Unavailable Christiano [...] Primary Care Unavailable Hutchins, Cynthia Referring Unavailable Torrance Kirk Attending Unavailable Kita, Chalon Primary Care Unavailable Jim, Ikrk Attending Unavailable Hutchins, Cynthia Referring Unavailable Kita, [...] Care Unavailable Radha Kelley Referring Unavailable Radha Kelely Attending Unavailable Kita, Chalon Primary Care Unavailable Tank Kelleyine Attending Unavailable Landry Barber Attending Unavailable Kita, Chalon Primary Care Unavailable Torrance, Kirk Referring Unavailable Torrance, Kirk Attending Unavailable Kita, Chalon Primary Care Unavailable Oswald Leahy Admitting Unavailable Oswald Leahy Attending Unavailable Benton Bundy Attending Unavailable Fabrizio Tripp Referring Unavailable Kita, Chalon Primary Care Unavailable Jim, Kirk Attending Unavailable Jim, Kirk Referring Unavailable Torrance, Kirk Consulting Unavailable Kita, Chalon Primary Care Unavailable Landry Barber Referring Unavailable Friend, Aquiles Attending Unavailable Kita, Chalon Primary Care Unavailable Torrance, Kirk Referring Unavailable Torrance, Kirk Consulting Unavailable Jim, Kirk Attending Unavailable Kita, Chalon Primary Care Unavailable Torrance, Kirk Attending Unavailable Jim, Kirk Referring Unavailable Torrance, Kirk Consulting Unavailable Darren Bernal Attending Unavailable [...] Referring Unavailable Kita, Chalon Primary Care Unavailable Torrance, Kirk Attending Unavailable Kita, Chalon Referring Unavailable [...] Attending Unavailable Kita, Chalon Primary Care Unavailable Htuchins, Cynthia Attending Unavailable Kita, Chalon Referring Unavailable Prah Jimmie Attending Unavailable Topock, Chriss Primary Care Unavailable Topock, Chriss Referring Unavailable Radha Kelley Consulting Unavailable [...] Referring Unavailable Carlton Crisostomo Attending Unavailable Kimberlyn aEst MD Primary Care Physician Rusty GARCIA, Dr. Zamudio Attending Physician Rusty GARCIA, Dr. Zamudio Referring Provider Trevin GARCIA, Dr. Judd Primary Care Physician Dr. Chriss Cruz MD Referring Provider Dr. Jimmie Ibarra MD Attending Physician Dr. Radha Kelley DO Nurse Practitioner Kita GARCIA, Kimberlyn Referring Provider Dr. Kirk Fernandez MD Attending Physician Dr. qAuiles Warren DO Attending Physician Dr. Kirk Fernandez MD Referring Provider Dr. Kirk Fernandez MD Nurse Practitioner Grisel Bajwa Attending Physician Cynthia Valera Attending Physician Allergies Allergy Classification Reported Allergen(s) Allergy Type Date of Onset Reaction(s) Facility (20 sources) Erythromycin Drug Allergy 5 [facility] (20 sources) Loratadine Drug Allergy 5 [facility] (20 sources) Homeopathic Products Propensity to adverse reactions 5 [facility] Work Phone: (20 sources) Lisinopril Drug Allergy 2 Other: See Comments [facility] Work Phone: (20 sources) amLODIPine Drug Allergy 2 Swelling [facility] Work Phone: (18 sources) Doxazosin Drug Allergy 3 Bleeding [facility] (10 sources) Doxazosin Drug Allergy 5 Diarrhea, Headache, Bleeding [facility] (10 sources) empagliflozin Drug Allergy 5 Shortness of Breath, Nausea Only [facility] (10 sources) Loratadine Propensity to adverse reactions to drug 6 Confusion [facility] (1 source) amLODIPine Drug Allergy 5 [facility] (1 source) Doxazosin Drug Allergy 5 [facility] (1 source) Loratadine Drug Allergy 5 [facility] (1 source) erythromycin base Drug allergy (disorder) 5 [facility] Medications Current Medications Medication Drug Class(es) Dates Sig (Normalized) Sig (Original) [id number] 200 actuat albuterol 0.09 mg/actuat metered dose [...] on above: Take 2 tablets by mo [facility] once daily. aspirin 81 mg delayed release [...] 11, 2013 8:22am take 1 tablet by [facility] twice daily carBAMazepine XR 400 MG Tab SR 12 HR Indications: Liver lesion , Malignant neoplasm of colon, unspecified part of colon Take 200 mg by mouth 2 times daily. Active Comment on above: Take 3 tablets by [facility] twice daily. cholecalciferol 0.025 mg ora l capsule (20 sources) Vitamin D Start: 10-10-2013 Start: 10-10-2013 take 1000 [IU] by [facility] once daily Cholecalciferol (Vitamin D3) Active 1000 UNIT PO DAILY October 10, 2013 1:00am Start: 08-09-2013 take 1 capsule by [facility] every other day Cholecalciferol, Vitamin D3, 25 mcg (1,000 unit) cap Take 1 capsule by mouth every other day 08/09/2013 Active Comment on above: Take 1 capsule by [facility] every other day sugar-free cholestyramine resin 4000 [...] Comment on above: [facility]. Fish Oil-Dha-Epa (19 [...] Start: 11-14-2020 take 1 capsule by mo [facility] once daily Start: 11-14-2020 take 1 capsule by mo [facility] once daily Start: 11-14-2020 take 1 capsule by mo [facility] once daily Fish Oil-Dha-Epa 1 EACH capsule Active 1 NMA PO DAILY November 14, 2020 12:00am supplement Start: 11-14-2020 take 1 capsule by mo [facility] once daily Fish Oil-Dha-Epa 1 EACH capsule [...] Comment on above: Take 1 capsule by [facility] three times daily for 30 days. take 1 capsule by [facility] three times a day gemfibrozil 600 mg oral tablet (20 sources) Peroxisome Proliferator Receptor alpha Agonist Start: 12-08-2023 take 1 tablet by mouth twice daily Start: 10-13-2021 End: 10-06-2023 take 1 tablet by mouth twice daily gemfibrozil (LOPID) 600 mg tablet Take 1 tablet by mouth twice daily. 180 tablet 3 10/06/2022 Active Comment on above: Take 1 tablet by [facility] twice daily. hydrALAZINE hydrochloride 50 mg oral [...] on above: Take 1 capsule by mo [facility] once daily. Multivitamin With Folic Acid (19 [...] PO DAILY October 21, 2014 1:00am omega 3-vdz-xlq-fish oil 300-400-1,000 mg cap (20 sources) Start: 10-07-2019 take 300-400 capsules by mouth once daily omega 6-axg-xnl-fish oil 300-400-1,000 mg cap Take 1 capsule by mouth once daily. 30 capsule 11 10/07/2019 Active Comment on above: Take 1 capsule by mo [facility] once daily. predniSONE 20 mg oral tablet (1 source) Start: 08-22-2022 End: 08-27-2022 take 2 tablets by mouth once daily predniSONE (DELTASONE) 20 mg tablet Take 2 tablets by mouth once daily for 5 days. 10 tablet 0 08/22/2022 08/27/2022 Active Comment on above: Take 2 tablets by mo [facility] once daily for 5 days. pyridoxine (10 [...] on above: Take 1 capsule by mo [facility] once daily. Completed/Discontinued Medications Medication Drug Class(es) [...] on above: Take 1 capsule by mo [facility] three times daily as needed for cough [...] on above: Take 1 capsule by mo [facility] three times daily. Dextrose 50% injection 7.5-25 [...] Comment on above: Take 1 tablet by [facility] once daily. ferrous fumarate 18 mg oral [...] minutes based on response and tolerability. 2 [place] 1 12/10/2020 02/01/2023 Discontinued (Other) Comment on [...] on above: Take 1 capsule by mo [facility] daily before breakfast. 1/2 hr before meal. [...] (Tegretol)on 08-30-2024 CARBAMAZEPINE 2.8 ug/mL Low 4.0-12.0 [facility] Comment on above: Performed By: #### L 501.7900 ####[facility] [address] [place], [address] Neurology Visit Reporton Neurology Visit Report Normal [facility] Serum or plasma carbamazepin e level (mass/volume)Ordered By: Robb Paulson on 06-30-2025 carBAMazepine [Mass/Vol] 2.8 ug/mL Low 4.0-12.0 [facility] MR/BMS.BVSon 06-25-2025 MR/BMS.BVS Normal [facility] Endocrinology Visit Reporton 06-18-2025 Endocrinology Visit Report Normal [facility] Operative Reporton 5 Operative Report Normal [facility] PRA CLASS (PRE-TRANSPLANT)on 05-15-2025 AB SPECIFICITY CLASS COMMENT Antibody Specificity testing performed by [facility]. cPRA calculation based on identification of HLA antibody specificities at MFI >2000 and/or presence of CREG antibodies. Normal [facility] Comment on above: Order Comment: RELEA [...] need for FDA approval.Testing performed by the [facility] Clinical Histocompatibility Laboratory. [facility] number: [id number]. CLIA number: [id number], Director: Sage Domingo, PhD, F([facility]). Performed By: #### C A199 #### [facility] (DEFAULT) [address] [address] CLASS I SPECIFICITIES Not detected Normal O [facility] Comment on above: Order Comment: RELEA SED BY LAB ONLY Performed By: #### C A199 #### [facility] (DEFAULT) [address] [address] CLASS II SPECIFICITIES Not detected Normal [facility] Comment on above: Order Comment: RELEA SED BY LAB ONLY Performed By: #### C A199 #### [facility] (DEFAULT) [address] [address] cPRA 0 % Normal 0 [facility] Comment on above: Order Comment: RELEA SED BY LAB ONLY Performed By: #### C A199 #### [facility] (DEFAULT) [address] [address] Gastroenterology Visit Repor ton 05-07-2025 Gastroenterology Visit Report Normal [facility] CT ABDOMEN WITH AND WITHOUT CONTRASTon [...] have reviewed and approved this report. Normal [facility] Duplex ultrasound of carotid artery reportOrdered By: Kirk Fernandez on 05-05-2025 Study report [facility] [address] [place] [address] Carotid Duplex Ultrasound 05/02/25 0907 MR#: [id number] Acct: [id number] Name: HUFFMANREGINALDO NUÑEZ Rep #:[id number] : 1970 54 From: Kirk Martínez Attending Dr: Dr. Robb Paulson MD Status: REG CLI Ordering Dr: Robb Paulson MD Date: 05/02/25 Location: [facility] Sex: M C Admitted: Reason For [...] the left vertebral artery. Procedure Carotid Duplex 66398. This is a Carotid Duplex examination using [...] ~ Date Dictated: 05/02/25906 Date Transcribed: 05/05/251226 Car Parker: Signed [facility] Work Phone: Anion gap in Serum or Plasma Ordered By: Kimberlyn East on 05-02-2025 Anion gap [Moles/Vol] 14 mmol/L 5-15 [facility] BUN/creatinine ratioOrdered By: Kimberlyn East on 05-02-2025 Urea nitrogen/Creatinine [Mass ratio] 5.5 mg/mg Low 10-20 [facility] Bilirubin, totalOrdered By: Kimberlyn East on 05-02-2025 Bilirubin [Mass/Vol] 0.41 mg/dL 0.00-1.30 [facility] CBC-Complete Blood Cnt No Di ffon 05-02-2025 Erythrocyte distribution width (RBC) [Ratio] 16.3 % High 11.6-14.6 [facility] Comment on above: Order Comment: Order Date: 04/25/25Order Info: [id number] - CBC Performed By: #### L 500.4100, L500.4050, L501.9910, L100.0500 ####[facility] [address] [place], [place], [id number] Hematocrit (Bld) [Volume fraction] 29.7 % Low 40-54 [facility] Comment on above: Order Comment: Order Date: 04/25/25Order Info: [id number] - CBC Performed By: #### L 500.4100, L500.4050, L501.9910, L100.0500 ####[facility] [address] [place], [address] Hemoglobin (Bld) [Mass/Vol] 10.4 g/dL Low 13.0-16.5 [facility] Comment on above: Order Comment: Order Date: 04/25/25Order Info: [id number] - CBC Performed By: #### L 500.4100, L500.4050, L501.9910, L100.0500 ####[facility] [address] [place], [address] MCH (RBC) [Entitic mass] 35.1 pg High 27.0-32.0 [facility] Comment on above: Order Comment: Order Date: 04/25/25Order Info: [id number] - CBC Performed By: #### L 500.4100, L500.4050, L501.9910, L100.0500 ####[facility] [address] [place], [address] MCHC (RBC) [Mass/Vol] 35.0 g/dL Normal 32-36 [facility] Comment on above: Order Comment: Order Date: 04/25/25Order Info: [id number] - CBC Performed By: #### L 500.4100, L500.4050, L501.9910, L100.0500 ####[facility] [address] [place], [address] MCV (RBC) [Entitic vol] 100.3 fL High 80-94 [facility] Comment on above: Order Comment: Order Date: 04/25/25Order Info: [id number] - CBC Performed By: #### L 500.4100, L500.4050, L501.9910, L100.0500 ####[facility] [address] [place], [address] Platelet mean volume (Bld) [Entitic vol] 10.6 fL Normal 6.2-12.0 [facility] Comment on above: Order Comment: Order Date: 04/25/25Order Info: [id number] - CBC Performed By: #### L 500.4100, L500.4050, L501.9910, L100.0500 ####[facility] [address] [place], [address] Platelets (Bld) [#/Vol] 137 10*3/uL Low 150-450 [facility] Comment on above: Order Comment: Order Date: 04/25/25Order Info: [id number] - CBC Performed By: #### L 500.4100, L500.4050, L501.9910, L100.0500 ####[facility] [address] [place], [address] RBC (Bld) [#/Vol] 2.96 10*6/uL Low 4.6-6.2 [facility] Comment on above: Order Comment: Order Date: 04/25/25Order Info: [id number] - CBC Performed By: #### L 500.4100, L500.4050, L501.9910, L100.0500 ####[facility] [address] [place], [address] RDW SD 60.0 fl High 35.1-43.9 [facility] Comment on above: Order Comment: Order Date: 04/25/25Order Info: [id number] - CBC Performed By: #### L 500.4100, L500.4050, L501.9910, L100.0500 ####[facility] [address] [place], [address] WBC (Bld) [#/Vol] 4.0 10*3/uL Low 4.4-11.0 [facility] Comment on above: Order Comment: Order Date: 04/25/25Order Info: [id number] - CBC Performed By: #### L 500.4100, L500.4050, L501.9910, L100.0500 ####[facility] [address] [place], [address] Calculated very low density lipoprotein (VLDL) cholesterol measurementOrdered By: Kimberlyn East on 05-02-2025 Calculated very low density lipoprotein (VLDL) cholesterol measurement 83 mg/dL High 5-40 [facility] Carbon dioxide, total [Moles /volume] in Central venous bloodOrdered By: Kimberlyn East on 05-02-2025 CO2 [Moles/Vol] 25.9 mmol/L 21.0-32.0 [facility] Carotid Duplex Ultrasoundon 05-02-2025 Carotid Duplex Ultrasound Normal [facility] Chloride assayOrdered By: Estephanie East on 05-02-2025 Chloride [Moles/Vol] 95 mmol/L Low 98-108 [facility] Comprehensive Metabolic Prof ilon 05-02-2025 Albumin [Mass/Vol] 4.3 g/dL Normal 3.5-5.0 [facility] Comment on above: Order Comment: Order Date: 04/25/25Order Info: [id number] - CMPOrder Info: [id number] - LIPIDOrder Info: [id number] - PSA Performed By: #### L 500.4100, L500.4050, L501.9910, L100.0500 ####[facility] [address] [place], [address] Albumin/Globulin [Mass ratio] 1.4 {ratio} Normal 0.9-2.4 [facility] Comment on above: Order Comment: Order Date: 04/25/25Order Info: [id number] - CMPOrder Info: [id number] - LIPIDOrder Info: [id number] - PSA Performed By: #### L 500.4100, L500.4050, L501.9910, L100.0500 ####[facility] [address] [place], [address] ALK PHOS 114 U/L Normal 40-129 [facility] Comment on above: Order Comment: Order Date: 04/25/25Order Info: [id number] - CMPOrder Info: [id number] - LIPIDOrder Info: [id number] - PSA Performed By: #### L 500.4100, L500.4050, L501.9910, L100.0500 ####[facility] [address] [place], [address] ALT [Catalytic activity/Vol] 8 U/L Normal <=46 [facility] Comment on above: Order Comment: Order Date: 04/25/25Order Info: [id number] - CMPOrder Info: [id number] - LIPIDOrder Info: [id number] - PSA Performed By: #### L 500.4100, L500.4050, L501.9910, L100.0500 ####[facility] [address] [place], [address] AST [Catalytic activity/Vol] 11 U/L Normal <=37 [facility] Comment on above: Order Comment: Order Date: 04/25/25Order Info: [id number] - CMPOrder Info: [id number] - LIPIDOrder Info: [id number] - PSA Performed By: #### L 500.4100, L500.4050, L501.9910, L100.0500 ####[facility] [address] [place], [address] Bilirubin [Mass/Vol] 0.41 mg/dL Normal 0.00-1.30 [facility] Comment on above: Order Comment: Order Date: 04/25/25Order Info: [id number] - CMPOrder Info: [id number] - LIPIDOrder Info: [id number] - PSA Performed By: #### L 500.4100, L500.4050, L501.9910, L100.0500 ####[facility] [address] [facility] [place], [address] BUN/CRE 5.5 RATIO Low 10-20 [facility] Comment on above: Order Comment: Order Date: 04/25/25Order Info: [id number] - CMPOrder Info: [id number] - LIPIDOrder Info: [id number] - PSA Performed By: #### L 500.4100, L500.4050, L501.9910, L100.0500 ####[facility] [address] [place], [address] Calcium [Mass/Vol] 9.0 mg/dL Normal 7.6-11.0 [facility] Comment on above: Order Comment: Order Date: 04/25/25Order Info: [id number] - CMPOrder Info: [id number] - LIPIDOrder Info: [id number] - PSA Performed By: #### L 500.4100, L500.4050, L501.9910, L100.0500 ####[facility] [address] [place], [address] Chloride [Moles/Vol] 95 mmol/L Low 98-108 [facility] Comment on above: Order Comment: Order Date: 04/25/25Order Info: [id number]- - CMPOrder Info: [id number] - LIPIDOrder Info: [id number] - PSA Performed By: #### L 500.4100, L500.4050, L501.9910, L100.0500 ####[facility] [address] [place], [address] CO2 [Moles/Vol] 25.9 mmol/L Normal 21.0-32.0 [facility] Comment on above: Order Comment: Order Date: 04/25/25Order Info: [id number] - CMPOrder Info: [id number] - LIPIDOrder Info: [id number] - PSA Performed By: #### L 500.4100, L500.4050, L501.9910, L100.0500 ####[facility] [address] [facility] [place], [address] Creatinine [Mass/Vol] 5.57 mg/dL High 0.70-1.20 [facility] Comment on above: Order Comment: Order Date: 04/25/25Order Info: [id number] - CMPOrder Info: - LIPIDOrder Info: [id number] - PSA Performed By: #### L 500.4100, L500.4050, L501.9910, L100.0500 ####[facility] [address] [place], [address] GAP 14 Normal 5-15 [facility] Comment on above: Order Comment: Order Date: 04/25/25Order Info: [id number] - CMPOrder Info: - LIPIDOrder Info: [id number] - PSA Performed By: #### L 500.4100, L500.4050, L501.9910, L100.0500 ####[facility] [address] [place], [address] GFR/1.73 sq M.predicted among non-blacks MDRD (S/P/Bld) [Vol rate/Area] 11 mL/min/{1.73_m2} Low >60 [facility] Comment on above: Order Comment: Order Date: 04/25/25Order Info: [id number] - CMPOrder Info: - LIPIDOrder Info: [id number] - PSA Result Comment: mL/m in/1.73m2 CKD-EPI Creatinine Equation (2020) Performed By: #### L 500.4100, L500.4050, L501.9910, L100.0500 ####[facility] [address] [place], [address] Globulin (S) [Mass/Vol] 3.1 g/dL Normal 2.2-4.2 [facility] [facility] Comment on above: Order Comment: Order Date: 04/25/25Order Info: [id number] - CMPOrder Info: - LIPIDOrder Info: [id number] - PSA Performed By: #### L 500.4100, L500.4050, L501.9910, L100.0500 ####[facility] [address] [place], [address] Glucose [Mass/Vol] 203 mg/dL High 70-99 [facility] Comment on above: Order Comment: Order Date: 04/25/25Order Info: [id number] - CMPOrder Info: [id number] - LIPIDOrder Info: [id number] - PSA Performed By: #### L 500.4100, L500.4050, L501.9910, L100.0500 ####[facility] [address] [place], [address] Potassium [Moles/Vol] 4.7 mmol/L Normal 3.3-5.1 [facility] Comment on above: Order Comment: Order Date: 04/25/25Order Info: [id number] - CMPOrder Info: [id number] - LIPIDOrder Info: [id number] - PSA Performed By: #### L 500.4100, L500.4050, L501.9910, L100.0500 ####[facility] [address] [place], [address] Sodium [Moles/Vol] 135 mmol/L Normal 133-145 [facility] Comment on above: Order Comment: Order Date: 04/25/25Order Info: [id number] - CMPOrder Info: [id number] - LIPIDOrder Info: [id number] - PSA Performed By: #### L 500.4100, L500.4050, L501.9910, L100.0500 ####[facility] [address] [place], [address] T PROT 7.4 g/dL Normal 5.9-8.4 [facility] Comment on above: Order Comment: Order Date: 04/25/25Order Info: [id number] - CMPOrder Info: [id number] - LIPIDOrder Info: [id number] - PSA Performed By: #### L 500.4100, L500.4050, L501.9910, L100.0500 ####[facility] [address] [place], [address] Urea nitrogen [Mass/Vol] 30 mg/dL High 4-19 [facility] Comment on above: Order Comment: Order Date: 04/25/25Order Info: [id number] - CMPOrder Info: [id number] - LIPIDOrder Info: [id number] - PSA Performed By: #### L 500.4100, L500.4050, L501.9910, L100.0500 ####[facility] [address] [place], [address] Erythrocyte distribution wid th ratioOrdered By: Kimberlyn East on 05-02-2025 Erythrocyte distribution width (RBC) [Ratio] 16.3 % High 11.6-14.6 [facility] Erythrocyte distribution wid th standard deviationOrdered By: Kimberlyn East on 05-02-2025 Erythrocyte distribution width (RBC) [Ratio] 60.0 fl High 35.1-43.9 [facility] Glomerular filtration rate ( GFR) estimation/1.73 sq m using serum, plasma, or whole bOrdered By: Kimberlyn East on 05-02-2025 GFR/1.73 sq M.predicted among non-blacks MDRD (S/P/Bld) [Vol rate/Area] 11 mL/min/{1.73_m2} Low >60 [facility] Comment on above: mL/min/1.73m2 CKD-EP I Creatinine Equation (2020) Hematocrit Auto (Bld) [Volum e fraction]Ordered By: Kimberlyn East on 05-02-2025 Hematocrit (Bld) [Volume fraction] 29.7 % Low 40-54 [facility] Hemoglobin A1con 05-02-2025 HbA1c (Bld) [Mass fraction] 7.0 % High <=5.6 [facility] Comment on above: Order Comment: Order Date: 04/25/25Order Info: [id number] - A1C Result Comment: Norm al < 5.7 % Prediabetic 5.7 - 6.4 % Diabetic >or= 6.5 % Please note range changes. Performed By: #### L 501.9961 ####[facility] [address] [place], [place], [id number] Hemoglobin A1c percentageOrd ered By: Kimberlyn East on 05-02-2025 HbA1c (Bld) [Mass fraction] 7.0 % High <5.7 [facility] Comment on above: Normal < 5.7 % Predi abetic 5.7 - 6.4 % Diabetic >or= 6.5 % Please note range changes. Hemoglobin measurementOrdere d By: Kimberlyn East on 05-02-2025 Hemoglobin (Bld) [Mass/Vol] 10.4 g/dL Low 13.0-16.5 [facility] LDL calc ser/plasOrdered By: Kimberlyn East on 05-02-2025 Cholesterol in LDL [Mass/Vol] 50 mg/dL [facility] Comment on above: Alrjnlryhr=550-758 m g/dL & Higher Ofut=208 mg/dL or greaterFriedwald Equation for LDL-C Laboratory - Chemistry and C hemistry - challengeOrdered By: Kimberlyn East on 05-02-2025 AST [Catalytic activity/Vol] 11 U/L <38 [facility] Lipid Profileon 05-02-2025 CHOL:HDL 4.60 Normal [facility] Comment on above: Order Comment: Order Date: 04/25/25Order Info: [id number] - CMPOrder Info: [id number] - LIPIDOrder Info: [id number] - PSA Performed By: #### L 500.4100, L500.4050, L501.9910, L100.0500 ####[facility] [address] [place], [place], [address] Cholesterol [Mass/Vol] 169 mg/dL Normal <=200 [facility] Comment on above: Order Comment: Order Date: 04/25/25Order Info: [id number] - CMPOrder Info: [id number] - LIPIDOrder Info: [id number] - PSA Result Comment: Chol esterol level, Desirable <200 mg/dLBorderline high cholesterol 200-239 mg/dLHigh cholesterol >=240 mg/dLRecommendations of the NCEP Adult Treatment Panel for thefollowing risk-cutoff thresholds for the [place] Americanpopulation. Performed By: #### L 500.4100, L500.4050, L501.9910, L100.0500 ####[facility] [address] [place], [address] Cholesterol in HDL [Mass/Vol] 37 mg/dL Low [facility] Comment on above: Order Comment: Order Date: 04/25/25Order Info: [id number] - CMPOrder Info: [id number] - LIPIDOrder Info: [id number] - PSA Result Comment: Nikky onal Cholesterol Education Program (NCEP) guidelines:<40 mg/dL: Low HDL-cholesterol (major risk factor for CHD)>= 60 mg/dL: High HDL-cholesterol (negative risk factor forCHD)HDL-cholesterol is affected by a number of factors, e.g.smoking, exercise, hormones, sex and age. Performed By: #### L 500.4100, L500.4050, L501.9910, L100.0500 ####[facility] [address] [place], [address] Cholesterol in LDL [Mass/Vol] 50 mg/dL Normal [facility] Comment on above: Order Comment: Order Date: 04/25/25Order Info: [id number] - CMPOrder Info: - LIPIDOrder Info: [id number] - PSA Result Comment: Bord htkfpp=315-904 mg/dL Higher Grbm=871 mg/dL or greaterFriedwald Equation for LDL-C Performed By: #### L 500.4100, L500.4050, L501.9910, L100.0500 ####[facility] [address] [place], [address] Cholesterol in VLDL [Mass/Vol] 83 mg/dL High 5-40 [facility] Comment on above: Order Comment: Order Date: 04/25/25Order Info: [id number] - CMPOrder Info: - LIPIDOrder Info: [id number] - PSA Performed By: #### L 500.4100, L500.4050, L501.9910, L100.0500 ####[facility] [address] [place], [address] Triglyceride [Mass/Vol] 414 mg/dL High [facility] Comment on above: Order Comment: Order Date: 04/25/25Order Info: [id number] - CMPOrder Info: [id number] - LIPIDOrder Info: [id number] - PSA Result Comment: The drugs N-Acetylcysteine and Metamizole may falselydepress this assay.Normal range: <150 mg/dLBorderline High: 150-199 mg/dLHigh: 200-499 mg/dLVery High: >500 mg/dL Performed By: #### L 500.4100, L500.4050, L501.9910, L100.0500 ####[facility] [address] [place], [address] MCV (mean corpuscular volume ) determinationOrdered By: Kimberlyn East on 05-02-2025 MCV (RBC) [Entitic vol] 100.3 fL High 80-94 [facility] Mean corpuscular hemoglobin (MCH) determinationOrdered By: Kimberlyn East on 05-02-2025 MCH (RBC) [Entitic mass] 35.1 pg High 27.0-32.0 [facility] Mean corpuscular hemoglobin concentration (MCHC) determinationOrdered By: Kimberlyn East on 05-02-2025 MCHC (RBC) [Mass/Vol] 35.0 g/dL 32-36 [facility] Mean platelet volume determi nationOrdered By: [facility] Limamarie East on 05-02-2025 Platelet mean volume (Bld) [Entitic vol] 10.6 fL 6.2-12.0 [facility] PSA,Total - Annual Screenon 05-02-2025 PSA,TOT SCREEN 0.64 ng/mL Normal 0.02-4.00 [facility] Comment on above: Order Comment: Order Date: 04/25/25Order Info: [id number] - CMPOrder Info: [id number] - LIPIDOrder Info: [id number] - PSA Result Comment: This test was performed using the Leslie LoSo tPSAmethod. Measured values of a patient??sample can varydepending on the testing procedure used. PSA valuesdetermined on patient samples by different testingprocedures cannot be used interchangeably. If there is achange in PSA assays while monitoring therapy, sequentialtesting should be performed to confirm baseline values. Performed By: #### L 500.4100, L500.4050, L501.9910, L100.0500 ####[facility] [address] [place], [address] Platelet countOrdered By: Estephanie East on 05-02-2025 Platelets (Bld) [#/Vol] 137 10*3/uL Low 150-450 [facility] Potassium measurement (mass/ volume)Ordered By: Kimberlyn East on 05-02-2025 Potassium (Unsp spec) [Mass/Vol] 4.7 mmol/L 3.3-5.1 [facility] RBC Auto (Bld) [#/Vol]Ordere d By: Kimberlyn East on 05-02-2025 RBC (Bld) [#/Vol] 2.96 10*6/uL Low 4.6-6.2 [facility] Screening total cholesterol/ high density lipoprotein (HDL) cholesterol ratioOrdered By: Kimberlyn East on 05-02-2025 Cholesterol.total/Arin sterol in HDL [Mass ratio] 4.60 {ratio} [facility] Serum creatinine measurement (mass/volume)Ordered By: Kimberlyn East on 05-02-2025 Creatinine [Mass/Vol] 5.57 mg/dL High 0.70-1.20 [facility] Serum globulin measurementOr dered By: Kimberlyn East on 05-02-2025 Globulin (S) [Mass/Vol] 3.1 g/dL 2.2-4.2 [facility] Serum glucose measurement (m ass/volume)Ordered By: Kimberlyn East on 05-02-2025 Glucose [Mass/Vol] 203 mg/dL High 70-99 [facility] Serum or plasma alanine meng otransferase (ALT) measurementOrdered By: Kimberlyn East on 05-02-2025 ALT [Catalytic activity/Vol] 8 U/L <47 [facility] Serum or plasma albumin abhi urement (mass/volume)Ordered By: Kimberlyn East on 05-02-2025 Albumin [Mass/Vol] 4.3 g/dL 3.5-5.0 [facility] Serum or plasma albumin/glob ulin mass ratioOrdered By: Kimberlyn East on 05-02-2025 Albumin/Globulin [Mass ratio] 1.4 {ratio} 0.9-2.4 [facility] Serum or plasma alkaline jaspreet sphatase measurementOrdered By: Kimberlyn East on 05-02-2025 ALP [Catalytic activity/Vol] 114 U/L 40-129 [facility] Serum or plasma calcium abhi urement (mass/volume)Ordered By: Kimberlyn East on 05-02-2025 Calcium [Mass/Vol] 9.0 mg/dL 7.6-11.0 [facility] Serum or plasma cholesterol in HDL measurement (mass/volume)Ordered By: Kimberlyn East on 05-02-2025 Cholesterol in HDL [Mass/Vol] 37 mg/dL Low >40 [facility] Comment on above: National Cholesterol Education Program (NCEP) guidelines:<40 mg/dL: Low HDL-cholesterol (major risk factor for CHD)>= 60 mg/dL: High HDL-cholesterol (negative risk factor for CHD)HDL-cholesterol is affected by a number of factors, e.g. smoking, exercise, hormones, sex and age. Serum or plasma cholesterol measurement (mass/volume)Ordered By: Kimberlyn East on 05-02-2025 Cholesterol [Mass/Vol] 169 mg/dL <201 [facility] Comment on above: Cholesterol level, D esirable <200 mg/dLBorderline high cholesterol 200-239 mg/dLHigh cholesterol >=240 mg/dLRecommendations of the NCEP Adult Treatment Panel for the following risk-cutoff thresholds for the [place] population. Serum or plasma urea nitroge n measurement (mass/volume)Ordered By: Kimberlyn East on 05-02-2025 Urea nitrogen [Mass/Vol] 30 mg/dL High 4-19 [facility] Sodium levelOrdered By: Aura East on 05-02-2025 Sodium [Moles/Vol] 135 mmol/L 133-145 [facility] Total proteinOrdered By: Lynn East on 05-02-2025 Protein [Mass/Vol] 7.4 g/dL 5.9-8.4 [facility] Triglycerides measurementOrd ered By: Kimberlyn East on 05-02-2025 Triglyceride [Mass/Vol] 414 mg/dL High <199 [facility] Comment on above: The drugs N-Acetylcy steine and Metamizole may falsely depress this assay. Normal range: <150 mg/dLBorderline High: 150-199 mg/dLHigh: 200-499 mg/dLVery High: >500 mg/dL White blood cell (WBC) count Ordered By: Kimberlyn East on 05-02-2025 WBC (Bld) [#/Vol] 4.0 10*3/uL Low 4.4-11.0 [facility] AFP TUMOR MARKERon AFP Tumor Marker <2.2 Normal <8.1 [facility] Comment on above: Result Comment: This test was performed on the [employer] IM Immunoassay platform by Siemens which is a two-site sandwich chemiluminescent immunoassay. It is important to note that assays using different manufacturers and/or methods may not be comparable. Performed By: #### A RUMA #### [facility] (DEFAULT) [address] [place] [address] CA 19-9on 04-23-2025 Cancer Ag 19-9 Qn 16.15 [arb'U]/mL NINF - 37.00 U/mL [facility] Comment on above: This test was perfor med on the Siemens Atellica IM Immunoassay platform which is a 2-step sandwich chemiluminescent immunoassay. It is important to note that assays using different manufacturers and/or methods may not be comparable. Interpretation and review of laboratory results Normal [facility] CA 19-9 16.15 U/mL Normal <=37.00 [facility] Comment on above: Result Comment: This test was performed on the Siemens Atellica IM Immunoassay platform which is a 2-step sandwich chemiluminescent immunoassay. It is important to note that assays using different manufacturers and/or methods may not be comparable. Performed By: #### C A199 #### [facility] (DEFAULT) [facility] [place] [address] HEPATIC FUNCTION PANELon Albumin [Mass/Vol] 4.8 g/dL 3.5 - 5.0 g/dL [facility] ALP [Catalytic activity/Vol] 100 U/L 32 - 126 U/L [facility] ALT [Catalytic activity/Vol] 5 U/L Low 10 - 52 U/L [facility] AST [Catalytic activity/Vol] 8 U/L Low 10 - 39 U/L [facility] Bilirubin [Mass/Vol] 0.4 mg/dL NINF - 1.5 mg/dL [facility] Bilirubin.direct [Mass/Vol] 0.1 mg/dL NINF - 0.3 mg/dL [facility] Interpretation and review of laboratory results Abnormal [facility] Protein [Mass/Vol] 8.1 g/dL 6.4 - 8.3 g/dL [facility] Albumin [Mass/Vol] 4.8 g/dL Normal 3.5-5.0 [facility] Comment on above: Performed By: #### A RUMA #### [facility] (DEFAULT) [address] [place] [address] ALP [Catalytic activity/Vol] 100 U/L Normal 32-126 [facility] Comment on above: Performed By: #### A RUMA #### [facility] (DEFAULT) [address] [place] [address] ALT [Catalytic activity/Vol] 5 U/L Low 10-52 [facility] Comment on above: Performed By: #### A RUMA #### [facility] (DEFAULT) [address] [place] [address] AST [Catalytic activity/Vol] 8 U/L Low 10-39 [facility] Comment on above: Performed By: #### A RUMA #### [facility] (DEFAULT) [address] [place] [address] Bilirubin [Mass/Vol] 0.4 mg/dL Normal <1.5 [facility] Comment on above: Performed By: #### A RUMA #### [facility] (DEFAULT) [address] [address] Bilirubin.indirect [Mass/Vol] 0.1 mg/dL Normal <0.3 [facility] Comment on above: Performed By: #### A RUMA #### [facility] (DEFAULT) [address] [address] Protein [Mass/Vol] 8.1 g/dL Normal 6.4-8.3 [facility] Comment on above: Performed By: #### A RUMA #### [facility] (DEFAULT) [address] [address] Neurology Visit Reporton Neurology Visit Report Normal [facility] AV Fistula/Dialysis Graft Sc anon 03-03-2025 AV Fistula/Dialysis Graft Scan Normal [facility] Arterial study reportOrdered By: Kirk Fernandez on 03-03-2025 Noninvasive arteriosclerosis study report [facility] [address] [place] [address] AV Fistula/Dialysis Graft Scan 03/03/25 0905 MR#: [id number] Acct: [id number] Name: REGINALDO HUFFMAN Rep #:[id number] : 1970 54 From: Kirk Martínez Attending Dr: BLANCA Ellison Stat us: REG CLI Ordering Dr: Cynthia Hutchins Date: Location: [facility] Sex: M C Admitted: Reason For [...] Date Dictated: 03/03/25904 Date Transcribed: 03/03/25 1241 Car Parker: Signed [facility] Work Phone: MR/BMS.BVSon 02-20-2025 MR/BMS.BVS Normal [facility] HEPATIC WEDGE PRESSURE/VENOo n 01-28-2025 HEPATIC WEDGE PRESSURE/VENO Examination: IR TRANSCATHETER BIOPSY, IR HEPATIC WEDGE PRESSURE/VENO, 01/27/2025 13:22 PM Clinical History: Male, 54 years old with history of K74.00:Hepatic fibrosis (accession [id number]), K74.00:Hepatic fibrosis (accession [id number]). Attending physician(s): Marshal Paris MD Trainee physician(s): [...] the wire, following sequential dilatation, a 10 Qatari sheath was placed. Over the wire, using [...] Dr. Deann (more content not included)... Normal [facility] TRANSCATHETER BIOPSYon 01-28 TRANSCATHETER BIOPSY Examination: IR TRANSCATHETER BIOPSY, IR HEPATIC WEDGE PRESSURE/VENO, 01/27/2025 13:22 PM Clinical History: Male, 54 years old with history of K74.00:Hepatic fibrosis (accession [id number]), K74.00:Hepatic fibrosis (accession [id number]). Attending physician(s): Marshal Paris MD Trainee physician(s): [...] the wire, following sequential dilatation, a 10 Qatari sheath was placed. Over the wire, using [...] Dr. Deann (more content not included)... Normal [facility] GLUCOSE POCon 01-27-2025 Glucose [Mass/Vol] 187 mg/dL High 70 - 179 mg/dL [facility] Interpretation and review of laboratory results Abnormal [facility] POC Sample Type VENO [facility] Test performed at address of the patient encounter. [facility] POTASSIUMon 01-27-2025 Interpretation and review of laboratory results Abnormal [facility] Potassium [Moles/Vol] 5.6 mmol/L High 3.5 - 5.0 mmol/L [facility] Potassium [Moles/Vol] 5.6 mmol/L High 3.5-5.0 [facility] Comment on above: Performed By: #### A RIGOBERTOH #### [facility] (DEFAULT) [address] [place] [address] SURG PATH REQUESTon 01-28-20 Case Report [facility] Comment on above: Result Comment: Surg ical Pathology Report Case: [id number] Authorizing Provider: Devonte James MD Collected: 01/27/2025 12:53 PM Ordering Location: [facility] Received: 01/27/2025 01:44 PM Hospital Pathologist: RYANNE Ortiz Specimen: Liver, needle/wedge biopsy Performed By: #### S URGP #### [facility] (DEFAULT) [address] [place] [address] Clinical History Clinical History: Li marylin biopsy. [facility] Comment on above: Performed By: #### S URGP #### [facility] (DEFAULT) [address] [place] [address] Gross Description Normal [facility] Comment on above: Result Comment: The specimen is received in one properly labeled container with the patient's name and accession number. A. The specimen is designated liver biopsy and consists of four cores of gunn-red soft tissue which range from 0.4 to 1.7 cm in length with an average diameter of less than 0.1 cm. TE 2 Lab Use Only: JobID [id number] Grosser for this case was: Clint Cooper Performed By: #### S URGP #### [facility] (DEFAULT) [address] [place] [address] Microscopic Description Normal [facility] Comment on above: Result Comment: A mi croscopic examination was performed. All controls show appropriate reactivity. All immunohistochemistry (IHC), in situ hybridization (LISETH), and histochemical tests were developed by and are performed at the [facility], Histology and IHC Lab, [address] [place] [address]. All Immunofluorescent (IF) tests were developed by and are performed at the [facility], Renal Division, [address] [place] [address]. All tests reported here, except for PD-L1, have not been cleared by or approved by the US Food and Drug Administration (FDA). The laboratory is regulated under CLIA as qualified to perform high-complexity testing. The tests are used for clinical purposes. They should not be regarded as investigational or for research. Performed By: #### S URGP #### [facility] (DEFAULT) [address] [place] [address] Pathologic Diagnosis Normal [facility] Comment on above: Result Comment: Lizeth [...] EDT Performed By: #### S URGP #### [facility] (DEFAULT) [address] [place] [address] Professional Interpretation Performed at: Normal [facility] Comment on above: Result Comment: [facility] For Immediate Release to Patient's [facility]? Yes [address] [address] Performed By: #### S URGP #### [facility] (DEFAULT) [address] [address] KENNETH SCREEN IFAon 12-25-2024 Antinuclear Antibody, IFA Negative Normal Negative [facility] Comment on above: Performed By: #### H SVG12 #### [facility] (DEFAULT) [address] [address] ANTI MITOCHONDRIAL ANTIBODYo n 12-25-2024 Anti-Mitochondrial Antibody Negative Normal Negative [facility] Comment on above: Performed By: #### C A199 #### [facility] (DEFAULT) [address] [address] ANTI SMOOTH MUSCLE ANTIBODYo n 12-25-2024 Smooth Muscle Antibody Positive Abnormal Negative [facility] Comment on above: Performed By: #### C A199 #### [facility] (DEFAULT) [address] [address] Smooth Muscle Antibody, Quant 1:40 Abnormal (none) [facility] Comment on above: Performed By: #### C A199 #### [facility] (DEFAULT) [address] [address] FERRITINon 12-25-2024 Ferritin [Mass/Vol] 627.9 ng/mL High 10.5 - 3 07.3 ng/mL [facility] Interpretation and review of laboratory results Abnormal [facility] Ferritin [Mass/Vol] 627.9 ng/mL High 10.5-307.3 [facility] Comment on above: Performed By: #### F ERIB #### [facility] (DEFAULT) [address] [address] HEPATIC FUNCTION PANELon Albumin [Mass/Vol] 4.5 g/dL 3.5 - 5.0 g/dL [facility] ALP [Catalytic activity/Vol] 73 U/L 32 - 126 U/L [facility] ALT [Catalytic activity/Vol] 8 U/L Low 10 - 52 U/L [facility] AST [Catalytic activity/Vol] 11 U/L 10 - 39 U/L [facility] Bilirubin [Mass/Vol] 0.4 mg/dL NINF - 1.5 mg/dL [facility] Bilirubin.direct [Mass/Vol] 0.1 mg/dL NINF - 0.3 mg/dL [facility] Interpretation and review of laboratory results Abnormal [facility] Protein [Mass/Vol] 8 g/dL 6.4 - 8.3 g/dL [facility] Albumin [Mass/Vol] 4.5 g/dL Normal 3.5-5.0 [facility] Comment on above: Performed By: #### H SVG12 #### [facility] (DEFAULT) [address] [place] [address] ALP [Catalytic activity/Vol] 73 U/L Normal 32-126 [facility] Comment on above: Performed By: #### H SVG12 #### [facility] (DEFAULT) [address] [place] [address] ALT [Catalytic activity/Vol] 8 U/L Low 10-52 [facility] Comment on above: Performed By: #### H SVG12 #### [facility] (DEFAULT) [address] [place] [address] AST [Catalytic activity/Vol] 11 U/L Normal 10-39 [facility] Comment on above: Performed By: #### H SVG12 #### [facility] (DEFAULT) [address] [place] [address] Bilirubin [Mass/Vol] 0.4 mg/dL Normal <1.5 [facility] Comment on above: Performed By: #### H SVG12 #### [facility] (DEFAULT) [address] [place] [address] Bilirubin.indirect [Mass/Vol] 0.1 mg/dL Normal <0.3 [facility] Comment on above: Performed By: #### H SVG12 #### [facility] (DEFAULT) [address] [place] [address] Protein [Mass/Vol] 8.0 g/dL Normal 6.4-8.3 [facility] Comment on above: Performed By: #### H SVG12 #### [facility] (DEFAULT) [address] [place] [address] HEPATITIS A AB, TOTAL (IGG+I GM)Ordered By: Maxi Enriquez on 12-25-2024 HAV IgG+IgM Ql (S) Negative Negative [facility] Interpretation and review of laboratory results Normal [facility] [facility] HEPATITIS A AB, TOTAL (IGG+I GM)on 12-25-2024 Hep A Ab, (IgG+IgM) Negative Normal Negative [facility] Comment on above: Performed By: #### A LCOSU #### [facility] (DEFAULT) [address] [place] [address] IMMUNOGLOBULINS IGG IGA IGMo n 12-25-2024 IgA [Mass/Vol] 168 mg/dL 66 - 433 mg/dL [facility] IgG [Mass/Vol] 1239 mg/dL 600 - 1714 mg/dL [facility] IgM [Mass/Vol] 111 mg/dL 45 - 281 mg/dL [facility] Interpretation and review of laboratory results Normal [facility] IgA [Mass/Vol] 168 mg/dL Normal 66-433 [facility] Comment on above: Performed By: #### A RUMA #### [facility] (DEFAULT) [address] [place] [address] IgG [Mass/Vol] 1239 mg/dL Normal 600-1714 [facility] Comment on above: Performed By: #### A RUMA #### [facility] (DEFAULT) [address] [place] [address] IgM [Mass/Vol] 111 mg/dL Normal 45-281 [facility] Comment on above: Performed By: #### A RUMA #### [facility] (DEFAULT) [address] [place] [address] IRON/IRON BINDING/TRANSFERRI Non 12-25-2024 Interpretation and review of laboratory results Normal [facility] Iron [Mass/Vol] 93 ug/dL [facility] Iron binding capacity [Mass/Vol] 318 [facility] Iron saturation [Mass fraction] 29 % 20 - 55 % [facility] Transferrin [Mass/Vol] 254 mg/dL 200 - 400 mg/dL [facility] Iron [Mass/Vol] 93 ug/dL Normal 40-174 [facility] Comment on above: Performed By: #### H [id number] #### [facility] (DEFAULT) [address] [address] Iron Saturation 29 % Normal 20-55 [facility] Comment on above: Performed By: #### H [id number] #### [facility] (DEFAULT) [address] [address] Total Iron Binding Capacity 318 mcg/dL Normal 250-425 [facility] Comment on above: Performed By: #### H [id number] #### [facility] (DEFAULT) [address] [address] Transferrin [Mass/Vol] 254 mg/dL Normal 200-400 [facility] Comment on above: Performed By: #### H [id number] #### [facility] (DEFAULT) [address] [address] No Panel Informationon 12-25 [facility] PHOSPHATIDYLETHANOL (PETH), WHOLE BLOOD QUANTITATIVEon 12-25-2024 PEth 16:0/18:1 (POPEth) <10 Normal Cutoff: 10 O [facility] Comment on above: Result Comment: Phos phatidylethanol [...] Sci) Performed By: #### S URGP #### [facility] (DEFAULT) [address] [address] PEth 16:0/18:2 (PLPEth) <10 Normal Cutoff: 10 O [facility] Comment on above: Result Comment: PEth 16:0/18:2 (PLPEth) Reference ranges are not well established Performed By: #### S URGP #### [facility] (DEFAULT) [address] [address] PHOSPHATIDYLETHANOL (PETH), WHOLE BLOOD QUANTITATIVE Negative Normal [facility] Comment on above: Result Comment: ADDITIONAL INFORMATION This report is intended for use in clinical monitoring and management of patients. It is not intended for use in employment-related testing. This test was developed and its performance characteristics determined by [facility] in a manner consistent with CLIA requirements. This test has not been cleared or approved by the U.S. Food and Drug Administration. Test Performed by: [facility] [place] [address] Chemical Research Technician: Ananth Novoa Ph.D.; CLIA# [id number] Performed By: #### S URGP #### [facility] (DEFAULT) [address] [address] MR/BMS.BVSon 12-20-2024 MR/BMS.BVS Normal [facility] Endocrinology Visit Reporton 12-18-2024 Endocrinology Visit Report Normal [facility] Laboratory - Hematology and Cell countsOrdered By: Grisel Timmons on 12-18-2024 HbA1c (Bld) [Mass fraction] 6.3 % 4.2-6.3 [facility] NUC MYOCARD PERF STRESS MIBI PHARMon [...] from the original result were not included. [facility] Facility [facility] Patient Information Patient Name Reginaldo Huffman [...] Role Read Date Davida Souza MD ECG [place], SPECT [place], Test Lip And Gate Builder 12/13/2024 Stress Measurements Baseline Vitals-Supine Baseline HR [...] Recent Event Modality Department 12/13/2024 Arrived Validated [facility] NUC MED , [facility] NUCLEAR MED CARDIOLOGY [facility] Begin Exam End Exam End Exam Questionnaires 12/13/2024 7:25 AM 12/13/2024 11:00 AM PERFORMING STAFF END EXAM NUC MED INFILTRATE INFORMATION CONTRAST REACTION INFORMATION Vitals Height Weight BSA (Calculated - sq m) BP Pulse 1.727 m (5' 8) 88.9 kg (196 lb) 2.03 m2 166/85 63 Imaging Contrast/Medications: Technetium tc 99m sestamibi (SEST (more content not included)... Normal [facility] SPECT Heart perfusion at res t and W stress and W radionuclide IVOrdered By: Davida Souza on 12-13-2024 % APHRMAX 46 % [facility] Work Phone: APHRMAX [address] [facility] [address] Work Phone: Baseline DBP 85 mmHg [facility] Work Phone: Baseline HR 63 bpm [facility] Work Phone: Baseline SBP 166 mmHg [facility] Work Phone: Body surface area Derived from formula 2.03 m2 [facility] Work Phone: Exercise duration (min) 4 min [facility] Work Phone: Nuc Stress EF 50 % [facility] Work Phone: Peak DBP 68 mmHg [facility] Work Phone: Peak HR 75 bpm [facility] Work Phone: Peak SBP 165 mmHg [facility] Work Phone: Rate Pressure Product [phone] [facility] Work Phone: [facility] Work Phone: SPECT Heart perfusion at res [...] 0.00% The left ventricular perfusion is normal. [facility] Radiology Study observation (narrative) [facility] CT ANGIO ABDOMINAL AORTA WIT H RUNOFFon [...] and ancillary findings as described above. Normal [facility] CTA Abdominal Aorta and Bila teral [...] tissue and ancillary findings as described above. [facility] Radiology Study observation (narrative) [facility] CTA Abdominal Aorta and Bila teral Runoff Vessels W contrast IVOrdered By: Devonte James on 12-11-2024 [facility] Work Phone: Cardiac echo study Procedure Ordered By: Carlos Sarmiento on 12-11-2024 Ao ASC index 1.77 cm/m2 [facility] Work Phone: Ao peak martinez 1.74 m/s [facility] Work Phone: Ao SOV index 1.67 cm/m2 [facility] Work Phone: Ao STJ index 1.32 cm/m2 [facility] Work Phone: Ao VTI 40.[address] [facility] Work Phone: Ascending aorta 3.6 [facility] Work Phone: AV LVOT peak gradient 4 mmHg [facility] Work Phone: AV mean gradient 7 [facility] Work Phone: AV peak gradient 12 mmHG [facility] Work Phone: AV valve area 2.14 cm2 [facility] Work Phone: AV Velocity Ratio 0.55 [facility] Work Phone: GENESIS (continuity Vmax) 2.1 cm2 [facility] Work Phone: GENESIS (continuity VTI) 2.14 cm2 [facility] Work Phone: GENESIS index (continuity Vmax) 1.03 m/s [facility] Work Phone: GENESIS index (continuity VTI) 1.06 cm2/m2 [facility] Work Phone: Avg e' pk martinez 0.09 m/s [facility] Work Phone: Avg E/e' ratio 13.74 [facility] Work Phone: Body surface area Derived from formula 2.03 m2 [facility] Work Phone: BP EF 49 % [facility] Work Phone: DI (Vmax) 0.55 [facility] Work Phone: DI (VTI) 0.56 m/2 [facility] Work Phone: E wave decelartion time 229.29 msec [facility] Work Phone: e' lateral pk martinez 0.1154 m/s [facility]: e' lateral pk martinez 0.12 m/s [facility] Work Phone: e' septal pk martinez 0.0684 m/s [facility] Work Phone: e' septal pk martinez 0.07 m/s [facility] Work Phone: E/A ratio [facility].[address] [facility] Work Phone: E/e' lateral ratio 10.23 [facility] Work Phone: E/e' septal ratio 17.25 [facility] Work Phone: EF SP 2CH [address] [facility] Work Phone: EF SP 4CH [address] [facility] Work Phone: EST RAP [address] [facility] Work Phone: EST RVSP [address] Work Phone: FS 22 % [facility] Work Phone: IVC ostium 2.[address] [facility] Work Phone: IVS 0.[address] [facility] Work Phone: LA AREA 2CH 25.45 cm2 [facility] Work Phone: LA area 4CH 24.97 cm2 [facility] Work Phone: LA ESV BP (MOD) 84 mL [facility] Work Phone: LA ESV BP (MOD) index 41 mL/m2 [facility] Work Phone: LA ESV SP 2CH (MOD) 84 mL [facility] Work Phone: [phone] LA ESV SP 4CH (MOD) 80 mL [facility] Work Phone: LV EDV BP [address] [facility] Work Phone: [phone] LV EDV SP 2CH 265 mL [facility] Work Phone: LV EDV SP 4CH [address] [facility] Work Phone: [phone] LV ESV BP [address] Work Phone: LV ESV SP 2CH [address] Work Phone: LV ESV SP 4CH [address] Work Phone: LV mass 252.33 g [facility] Work Phone: [phone] LV Mass Index 124.3 g/m2 [facility] Work Phone: [phone] LV RWT 0.[address] [facility] Work Phone: LV stroke volume BP (ml) [address] [facility] Work Phone: LV stroke volume index BP 61.08 mL/m2 [facility] Work Phone: LVIDD 5.[address] Work Phone: LVIDS 4.[address] [facility] Work Phone: LVOT area 3.[address] Work Phone: LVOT diameter 2.[address] [facility] Work Phone: LVOT peak martinez 0.96 m/s [facility] Work Phone: LVOT peak VTI 22.58 cm [facility] Work Phone: LVOT stroke volume 86 cm3 [facility] Work Phone: LVOT stroke volume index 42.26 ml/m2 [facility] Work Phone: MV mean gradient 3 mmHg [facility] Work Phone: MV pk A martinez 0.66 m/s [facility] Work Phone: MV pk E martinez 1.18 m/s [facility] Work Phone: MV stenosis pressure 1/2 time 66.[address] [facility] Work Phone: [phone] MV valve area by continuity eq 2.4 cm2 [facility] Work Phone: MV valve area p 1/2 method 3.31 cm2 [facility] Work Phone: MV VTI 35.68 cm [facility] Work Phone: MVA (continuity VTI) 2.4 cm [facility] Work Phone: OSU AV VTI RATIO PRE STRESS 0.56 [facility] Work Phone: OSU ECHO LV BIPLANE SYSTOLIC VOLUME INDEX 64.53 mL/m2 [facility] Work Phone: OSU ECHO LV BP DIASTOLIC VOLUME INDEX 125.62 mL/m2 [facility] Work Phone: OSU RVOT VTI RATIO 0.64 [facility] Work Phone: PV mean gradient 3 mmHg [facility] Work Phone: PV peak gradient 6 mmHg [facility] Work Phone: PV PK MARTINEZ 1.24 m/s [facility] Work Phone: PV VTI 28.[address] [facility] Work Phone: PW 1.[address] [facility] Work Phone: RA vol index 4CH (MOD) 28.57 mL/m2 [facility] Work Phone: Right atrium volume 4 chamber method of disks 58 mL [facility] Work Phone: RV Area diastolic 27.18 cm2 [facility] Work Phone: RV Area systolic 16.33 cm2 [facility] Work Phone: RV basal diam 4.67 cm [facility] Work Phone: RV Fractional area change 39.9 % [facility] Work Phone: RV long diam 9.27 cm [facility] Work Phone: RV mid diam 3.39 cm [facility] Work Phone: RV S' 14.37 cm/s [facility] Work Phone: RVOT peak gradient 2 mmHg [facility] Work Phone: RVOT peak martinez 0.69 m/s [facility] Work Phone: RVOT peak VTI 18.1 cm [facility] Work Phone: Sinus 3.38 cm [facility] Work Phone: STJ 2.68 cm [facility] Work Phone: Stroke Volume 86 cm/mL [facility] Work Phone: Stroke volume index 42 [facility] Work Phone: TAPSE 2.[address] Work Phone: TR pk grad [address] [facility] Work Phone: TR pk martinez 2.62 m/s [facility] Work Phone: [facility] Work Phone: Cardiac echo study Procedure on [...] The left ventricular wall motion is normal. [facility] Radiology Study observation (narrative) [facility] ECHOCARDIOGRAMon 12-11-2024 Echocardiography The left ventricular chamber size and systolic function are normal. LVEF 55-60%. Grade II diastolic dysfunction. The right ventricular chamber size and systolic function are normal. There is no hemodynamically significant valvular disease. Estimated RVSP 35 mmHg. Table formatting from the original result was not included. Images from the original result were not included. [facility] Patient Information Patient Name Reginaldo Huffman [...] Role Read Date Carlos Sarmiento MD Echo [place] 12/11/2024 Wall Scoring Score Index: 1.00 The [...] Valve Stenosi (more content not included)... Normal [facility] CNCOon 11-29-2024 CNCO Letter Text Normal [facility] CNPAngelica 11-29-2024 CNPN Telephone (TXCTGL) -------- REGINALDO HUFFMAN ([id number]) 1970 M Date Time Provider Department 11/29/24 DIONE LOVE TXCTGL During your visit today, we recorded the following information about you: Allergies As of Date: 11/29/2024 Noted Allergy Reaction AMLODIPINE 11/30/2021 7 - Swelling Comments: Uncomfortable swelling CLARITIN (LORATADINE) 05/09/2005 4 - Hives ERYTHROMYCIN 05/09/2005 Comments: Spacey Feeling HAYFEVER (HOMEOPATHIC PRODUCTS) 04/15/2005 Date Reviewed: 06/23/2023 Reviewed by: Candy Penn APRN.[employer]LL [employer] WORKER - Fully Assessed Reason for Visit: Referral - Kidney Txp [[id number]] Cmt: NS on 3/26 Prescriptions as of [...] SUGAR AND FOR INSULIN INJECTIONS - Insulin [place], Disposable, (PEN NEEDLES) 31 gauge x 1/4 [...] 5 tabs a day prn. - omega 4-ols-xyi-fish oil 300-400-1,000 mg cap Take 1 capsule [...] 02/15/2022 [facility] (more content not included)... Normal [facility] 11-20-2024 [facility] Telephone (TXCTGL) -------- REGINALDO HUFFMAN ([id number]) 1970 M Date Time Provider Department 11/20/24 [...] Date Reviewed: 06/23/2023 Reviewed by: Candy Penn APRN.[employer] WORKER - Fully Assessed Prescriptions as of 11/20/2024 [...] SUGAR AND FOR INSULIN INJECTIONS - Insulin [place], Disposable, (PEN NEEDLES) 31 gauge x 1/4 [...] 5 tabs a day prn. - omega 1-nog-gax-fish oil 300-400-1,000 mg cap Take 1 capsule [...] 01/26/2022 Dec[facility] (more content not included)... Normal [facility] ABO/RH(D) TYPINGon ABO/RH(D) TYPE Positive [facility] ABO/RH(D) TYPE Positive Normal [facility] Comment on above: Performed By: #### A BORLaurie #### [facility] (DEFAULT) [address] [place] [address] ALBUMINon 11-08-2024 Albumin [Mass/Vol] 4.3 g/dL 3.5 - 5.0 g/dL [facility] Albumin [Mass/Vol] 4.3 g/dL Normal 3.5-5.0 [facility] Comment on above: Performed By: #### H [id number] #### [facility] (DEFAULT) [address] [place] [address] ALCOHOL (ETHANOL),BLOODOrder ed By: Tresa Nava on 11-08-2024 Ethanol Ql (Bld) mg/dL NINF - 10 mg/dL [facility] Interpretation and review of laboratory results Normal [facility] ALCOHOL (ETHANOL),BLOODon Alcohol, Serum <10 Normal <10 [facility] Comment on above: Performed By: #### A LCOSU #### [facility] (DEFAULT) [address] [place] [address] ALP ALT Vilma 11-08-2024 ALP [Catalytic activity/Vol] 57 U/L 32 - 126 U/L [facility] ALT [Catalytic activity/Vol] 6 U/L Low 10 - 52 U/L [facility] AST [Catalytic activity/Vol] 10 U/L 10 - 39 U/L [facility] ALP [Catalytic activity/Vol] 57 U/L Normal 32-126 [facility] Comment on above: Performed By: #### H [id number] #### [facility] (DEFAULT) [address] [place] [address] ALT [Catalytic activity/Vol] 6 U/L Low 10-52 [facility] Comment on above: Performed By: #### H [id number] #### [facility] (DEFAULT) [address] [place] [address] AST [Catalytic activity/Vol] 10 U/L Normal 10-39 [facility] Comment on above: Performed By: #### H [id number] #### [facility] (DEFAULT) [address] [place] [address] BILIRUBIN TOTALon 11-08-2024 Bilirubin [Mass/Vol] 0.4 mg/dL NINF - 1.5 mg/dL [facility] Bilirubin [Mass/Vol] 0.4 mg/dL Normal <1.5 [facility] Comment on above: Performed By: #### A BORH #### [facility] (DEFAULT) [address] [place] [address] CALCIUMon 11-08-2024 Calcium [Mass/Vol] 8.8 mg/dL 8.6 - 10. 5 mg/dL [facility] Calcium [Mass/Vol] 8.8 mg/dL Normal 8.6-10.5 [facility] Comment on above: Performed By: #### H [id number] #### [facility] (DEFAULT) [address] [place] [address] CBC AND ELECTRONIC DIFFon Basophils (Bld) [#/Vol] K/uL 0.00 - 0.09 K/uL [facility] Basophils/100 WBC (Bld) 0.5 % [facility] Differential cell count method Nom (Bld) Electronic Differential [facility] Eosinophils (Bld) [#/Vol] 0.08 10*3/uL 0.00 - 0.48 K/uL [facility] Eosinophils/100 WBC (Bld) 1.4 % [facility] Erythrocyte distribution width (RBC) [Ratio] 13.4 % 10.9 - 14.3 % [facility] Hematocrit (Bld) [Volume fraction] 27.2 % Low 39.6 - 48.8 % [facility] Hemoglobin (Bld) [Mass/Vol] 9.4 g/dL Low 13.4 - 16.8 g/dL [facility] Immature granulocytes (Bld) [#/Vol] 0.08 10*3/uL High NINF - 0.07 K/uL [facility] Immature granulocytes/100 WBC (Bld) 1.4 % [facility] Interpretation and review of laboratory results Abnormal [facility] Lymphocytes (Bld) [#/Vol] 1.58 10*3/uL 0.83 - 3.57 K/uL [facility] Lymphocytes/100 WBC (Bld) 28.5 % [facility] MCH (RBC) [Entitic mass] 32.8 pg 26.1 - 33.3 pg [facility] MCHC (RBC) [Mass/Vol] 34.6 g/dL 31.9 - 36.5 g/dL [facility] MCV (RBC) [Entitic vol] 94.8 fL High 79.0 - 94.5 fL [facility] Monocytes (Bld) [#/Vol] 0.42 10*3/uL 0.24 - 0.93 K/uL [facility] Monocytes/100 WBC (Bld) 7.6 % [facility] Neutrophils (Bld) [#/Vol] 3.36 10*3/uL 1.57 - 6.19 K/uL [facility] Nucleated RBC/100 WBC (Bld) [Ratio] 0 % NINF [facility] Platelet mean volume (Bld) [Entitic vol] 10 fL 8.7 - 12.3 fL [facility] Platelets (Bld) [#/Vol] 196 10*3/uL 146 - 337 K/uL [facility] RBC (Bld) [#/Vol] 2.87 10*6/uL Low [facility] Segmented neutrophils/100 WBC (Bld) 60.6 % [facility] WBC (Bld) [#/Vol] 5.55 10*3/uL 3.73 - 10. 10 K/uL [facility] Abs Baso Auto < Normal 0.00-0.09 [facility] Comment on above: Performed By: #### A RUMA #### [facility] (DEFAULT) [address] [address] Basophils/100 WBC (Bld) 0.5 % Normal [facility] Comment on above: Performed By: #### A RUMA #### [facility] (DEFAULT) [address] [place] [address] DIFF STATUS Electronic Differential Normal [facility] Comment on above: Performed By: #### A RUMA #### [facility] (DEFAULT) [address] [address] Eosinophils (Bld) [#/Vol] 0.08 10*3/uL Normal 0.00-0.48 [facility] Comment on above: Performed By: #### A RUMA #### [facility] (DEFAULT) [address] [address] Eosinophils/100 WBC (Bld) 1.4 % Normal [facility] Comment on above: Performed By: #### A RUMA #### [facility] (DEFAULT) [address] [address] Hematocrit (Bld) [Volume fraction] 27.2 % Low 39.6-48.8 [facility] Comment on above: Performed By: #### A RUMA #### [facility] (DEFAULT) [address] [address] Hemoglobin (Bld) [Mass/Vol] 9.4 g/dL Low 13.4-16.8 [facility] Comment on above: Performed By: #### A RUMA #### [facility] (DEFAULT) [address] [address] Immature Grans % 1.4 % Normal [facility] Comment on above: Performed By: #### A RUMA #### [facility] (DEFAULT) [address] [address] Immature Grans Absolute 0.08 K/uL High <=0.07 [facility] Comment on above: Performed By: #### A RUMA #### [facility] (DEFAULT) [address] [address] Lymphocytes (Bld) [#/Vol] 1.58 10*3/uL Normal 0.83-3.57 [facility] Comment on above: Performed By: #### A RUMA #### [facility] (DEFAULT) [address] [address] Lymphocytes/100 WBC (Bld) 28.5 % Normal [facility] Comment on above: Performed By: #### A RUMA #### [facility] (DEFAULT) [address] [place] [address] MCV (RBC) [Entitic vol] 94.8 fL High 79.0-94.5 [facility] Comment on above: Performed By: #### A RUMA #### [facility] (DEFAULT) [address] [place] [address] Mean Cell Hgb 32.8 pg Normal 26.1-33.3 [facility] Comment on above: Performed By: #### A RUMA #### [facility] (DEFAULT) [address] [address] Mean Cell Hgb Conc 34.6 g/dL Normal 31.9-36.5 [facility] Comment on above: Performed By: #### A RUMA #### [facility] (DEFAULT) [address] [address] Monocytes (Bld) [#/Vol] 0.42 10*3/uL Normal 0.24-0.93 [facility] Comment on above: Performed By: #### A RUMA #### [facility] (DEFAULT) [address] [address] Monocytes/100 WBC (Bld) 7.6 % Normal [facility] Comment on above: Performed By: #### A RIGOBERTOH #### [facility] (DEFAULT) [address] [address] Nucleated RBC 0.0 /100 WBC Normal <=0.2 [facility] Comment on above: Performed By: #### A RUMA #### [facility] (DEFAULT) [address] [address] Platelet mean volume (Bld) [Entitic vol] 10.0 fL Normal 8.7-12.3 [facility] Comment on above: Performed By: #### A RUMA #### [facility] (DEFAULT) [address] [address] Platelets (Bld) [#/Vol] 196 10*3/uL Normal 146-337 [facility] Comment on above: Performed By: #### A RUMA #### [facility] (DEFAULT) [address] [place] [address] RBC (Bld) [#/Vol] 2.87 10*6/uL Low 4.38-5.83 [facility] Comment on above: Performed By: #### A RUMA #### [facility] (DEFAULT) [address] [place] [address] RBC Distribution 13.4 % Normal 10.9-14.3 [facility] Comment on above: Performed By: #### A RUMA #### [facility] (DEFAULT) [address] [place] [address] Segs + Bands Auto 60.6 % Normal [facility] Comment on above: Performed By: #### A RUMA #### [facility] (DEFAULT) [address] [place] [address] Segs + Bands,Absolute Auto 3.36 K/uL Normal 1.57-6.19 [facility] Comment on above: Performed By: #### A RUMA #### [facility] (DEFAULT) [address] [place] [address] WBC (Bld) [#/Vol] 5.55 10*3/uL Normal 3.73-10.10 [facility] Comment on above: Performed By: #### A RUMA #### [facility] (DEFAULT) [address] [place] [address] [id number] CHEM 7 (LYTES,BUN,CREA,GLUC) on 11-08-2024 Anion gap [Moles/Vol] 17 mmol/L 7 - 17 mmol/L [facility] Chloride [Moles/Vol] 92 mmol/L Low 98 - 10 8 mmol/L [facility] CO2 [Moles/Vol] 32 mmol/L High 21 - 31 mmol/L [facility] Creatinine [Mass/Vol] 5.86 mg/dL High 0.70 - 1.30 mg/dL [facility] eGFR, CKD-EPI, Male 11 Low - PINF [facility] Comment on above: Reported eGFR is bas ed on the CKD-EPI 2020 equation using creatinine, age, and sex. Glucose [Mass/Vol] 155 mg/dL High 70 - 99 mg/dL [facility] Osmolality Calc [Osmolality] 296 [facility] Potassium [Moles/Vol] 3.9 mmol/L 3.5 - 5.0 mmol/L [facility] Sodium [Moles/Vol] 137 mmol/L 135 - 145 mmol/L [facility] Urea nitrogen [Mass/Vol] 28 mg/dL High 7 - 25 mg/dL [facility] Urea nitrogen/Creatinine [Mass ratio] 5 mg/mg [facility] Anion gap [Moles/Vol] 17 mmol/L Normal 7-17 [facility] Comment on above: Performed By: #### H [id number] #### [facility] (DEFAULT) [address] [place] [address] Chloride [Moles/Vol] 92 mmol/L Low 98-108 [facility] Comment on above: Performed By: #### H [id number] #### [facility] (DEFAULT) [address] [place] [address] 13818 CO2 [Moles/Vol] 32 mmol/L High 21-31 [facility] Comment on above: Performed By: #### H [id number] #### [facility] (DEFAULT) [address] [place] [address] Creatinine [Mass/Vol] 5.86 mg/dL High 0.70-1.30 [facility] Comment on above: Performed By: #### H [id number] #### [facility] (DEFAULT) [address] [place] [address]180 GFR/1.73 sq M.predicted among non-blacks MDRD (S/P/Bld) [Vol rate/Area] 11 mL/min/{1.73_m2} Low >=60 [facility] Comment on above: Result Comment: Repo rted eGFR is based on the CKD-EPI 2020 equation using creatinine, age, and sex. Performed By: #### H SVG12 #### [facility] (DEFAULT) [address] [place] [address]2567 Glucose [Mass/Vol] 155 mg/dL High 70-99 [facility] Comment on above: Performed By: #### H [id number] #### [facility] (DEFAULT) [address] [place] [address] Osmolality [Osmolality] 296 mosm/kg Normal 278-305 [facility] Comment on above: Performed By: #### H SVG12 #### [facility] (DEFAULT) [address] [place] [address]26 Potassium [Moles/Vol] 3.9 mmol/L Normal 3.5-5.0 [facility] Comment on above: Performed By: #### H [id number] #### [facility] (DEFAULT) [address] [place] [address]010 Sodium [Moles/Vol] 137 mmol/L Normal 135-145 [facility] Comment on above: Performed By: #### H SVG12 #### [facility] (DEFAULT) [address] [place] [address] 33998 Urea nitrogen [Mass/Vol] 28 mg/dL High 7-25 [facility] Comment on above: Performed By: #### H [id number] #### [facility] (DEFAULT) [address] [place] [address] 18168 Urea nitrogen/Creatinine [Mass ratio] 5 mg/mg Normal [facility] Comment on above: Performed By: #### H [id number] #### [facility] (DEFAULT) [address] [place] [address] 86459 CMV IGG ABon 11-08-2024 CMV IgG Ql Positive Abnormal Negative [facility] Interpretation and review of laboratory results Abnormal [facility] CMV IgG Antibody Positive Abnormal Negative [facility] Comment on above: Performed By: #### A LCOSU #### [facility] (DEFAULT) [address] [place] [address] 98698 EBV VCA IGG ABon 11-08-2024 EBV capsid IgG Ql (S) Positive Abnormal Negative [facility] Interpretation and review of laboratory results Abnormal [facility] EBV VCA IgG Antibody Positive Abnormal Negative [facility] Comment on above: Performed By: #### S URGP #### [facility] (DEFAULT) [address] [place] [address] 34081 GGTon 11-08-2024 Gamma glutamyl transferase [Catalytic activity/Vol] 25 U/L 8 - 64 U/L [facility] Gamma glutamyl transferase [Catalytic activity/Vol] 25 U/L Normal 8-64 [facility] Comment on above: Performed By: #### H [id number] #### [facility] (DEFAULT) [address] [place] [address] 17990 HEMOGLOBIN A1Con 11-08-2024 Average glucose Estimated from glycated hemoglobin (Bld) [Mass/Vol] 140 mg/dL [facility] HbA1c (Bld) [Mass fraction] 6.5 % High 4.7 - 5.6 % [facility] Interpretation and review of laboratory results Abnormal [facility] Glucose [Mass/Vol] 140 mg/dL Normal [facility] Comment on above: Performed By: #### C A199 #### [facility] (DEFAULT) [address] [place] [address] 65584 Hemoglobin A1C HPLC 6.5 % High 4.7-5.6 [facility] Comment on above: Performed By: #### C A199 #### [facility] (DEFAULT) [address] [place] [address] 12695 HEPATITIS A IGM ABon 025 HAV IgM IA Ql Negative Negative [facility] Hepatitis A IgM Ab Negative Normal Negative [facility] Comment on above: Performed By: #### A LCOSU #### [facility] (DEFAULT) [address] [address] HEPATITIS B CORE AB,TOTAL (I GG+IGM)on 11-08-2024 HBV core IgG+IgM Ql (S) Negative Negative [facility] Hep B Core Ab,Total (IgG+IgM) Negative Normal Negative [facility] Comment on above: Performed By: #### A LCOSU #### [facility] (DEFAULT) [address] [place] [address] 88685 HEPATITIS B SURFACE ANTIBODY on 11-08-2024 HBV surface Ab IA Ql (S) Positive Abnormal Negative [facility] Comment on above: A positive result in dicates immunity through past immunization or prior infection. Interpretation and review of laboratory results Abnormal [facility] Hep B Surface Ab Positive Abnormal Negative [facility] Comment on above: Result Comment: A po sitive result indicates immunity through past immunization or prior infection. Performed By: #### H BSAG, HSVM, HBSAB #### [facility] (DEFAULT) [address] [address] HEPATITIS B SURFACE ANTIGENo n 11-08-2024 HBV surface Ag Ql (S) Negative Negative [facility] Hepatitis B Surface Ag Negative Normal Negative [facility] Comment on above: Performed By: #### H BSAG, HSVM, HBSAB #### [facility] (DEFAULT) [address] [place] [address] 72513 HEPATITIS C ANTIBODYOrdered By: John Romano on 11-08-2024 HCV Ab Ql (S) Negative Negative [facility] HEPATITIS C ANTIBODYon 11-08 Hepatitis C Antibody Negative Normal Negative [facility] Comment on above: Performed By: #### C A199 #### [facility] (DEFAULT) [address] [place] [address]65 HIV 1 AND 2 ANTIBODIES/P24 A NTIGENon 11-08-2024 HIV 1+2 Ab+HIV1 p24 Ag IA Ql Non-Reactive Non Reactive [facility] HIV-1/HIV-2 Ab With p24 Antigen Non-Reactive Normal Non Reactive [facility] Comment on above: Performed By: #### A LCOSU #### [facility] (DEFAULT) [address] [address] HLA TYPING (SOLID ORGAN)on 0 11-08-2024 A 2,11 [facility] Comment on above: Performed By: #### A LCOSU #### [facility] (DEFAULT) [address] [address] B 62,56 [facility] Comment on above: Performed By: #### A LCOSU #### [facility] (DEFAULT) [address] [address] BW 6,6 [facility] Comment on above: Performed By: #### A LCOSU #### [facility] (DEFAULT) [address] [address] C 1,9 [facility] Comment on above: Performed By: #### A LCOSU #### [facility] (DEFAULT) [address] [address] DPA1* 01:03 [facility] Comment on above: Performed By: #### A LCOSU #### [facility] (DEFAULT) [address] [address] DPA11 02:01 [facility] Comment on above: Result Comment: Test [...] need for FDA approval.Testing performed by the [facility] Clinical Histocompatibility Laboratory. [facility] number: [id number]. [place] number: [id number], Director: Sage Domingo, PhD, F([facility]). Performed By: #### A LCOSU #### [facility] (DEFAULT) [address] [place] [address] DPB1* DPB11 23:01 [facility] Comment on above: Performed By: #### A LCOSU #### [facility] (DEFAULT) [address] [place] [address] 07852 DPB1*DPB1A 01:01 [facility] Comment on above: Performed By: #### A LCOSU #### [facility] (DEFAULT) [address] [place] [address] 89949 DQA1* 05:05 [facility] Comment on above: Performed By: #### A LCOSU #### [facility] (DEFAULT) [address] [place] [address] 79001 DQA1*DQA11 - [facility] Comment on above: Performed By: #### A LCOSU #### [facility] (DEFAULT) [address] [place] [address]41 DQB1 7,- [facility] Comment on above: Performed By: #### A LCOSU #### [facility] (DEFAULT) [address] [place] [address] 96709 DQB1* 03:01 [facility] Comment on above: Performed By: #### A LCOSU #### [facility] (DEFAULT) [address] [address] DQB1* - DQB11 - [facility] Comment on above: Performed By: #### A LCOSU #### [facility] (DEFAULT) [address] [place] [address] 11,- Normal [facility] Comment on above: Performed By: #### A LCOSU #### [facility] (DEFAULT) [address] [place] [address] 11697 DR51,52,53 52 [facility] Comment on above: Performed By: #### A LCOSU #### [facility] (DEFAULT) [address] [place] [address] 16299 DRB1* 11:01 [facility] Comment on above: Performed By: #### A LCOSU #### [facility] (DEFAULT) [address] [place] [address] 04024 DRB1* - DRB11 - [facility] Comment on above: Performed By: #### A LCOSU #### [facility] (DEFAULT) [address] [place] [address] 79435 DRB3* 02:02 [facility] Comment on above: Performed By: #### A LCOSU #### [facility] (DEFAULT) [address] [place] [address] 25092 HLA A* 02:01 [facility] Comment on above: Performed By: #### A LCOSU #### [facility] (DEFAULT) [address] [place] [address] 62137 HLA A* - HLAAA 11:01 [facility] Comment on above: Performed By: #### A LCOSU #### [facility] (DEFAULT) [address] [place] [address] 36336 HLA B* 15:01 [facility] Comment on above: Performed By: #### A LCOSU #### [facility] (DEFAULT) [address] [place] [address] 77954 HLA B* - HLABBB 56:01 [facility] Comment on above: Performed By: #### A LCOSU #### [facility] (DEFAULT) [address] [place] [address] 15334 HLA C* 01:02 [facility] Comment on above: Performed By: #### A LCOSU #### [facility] (DEFAULT) [address] [address] HLA C* - HLACC 03:03 Normal [facility] Comment on above: Performed By: #### A LCOSU #### [facility] (DEFAULT) [address] [place] [address] 24540 HSV 1 AND 2 IGG ANTIBODYon 0 11-08-2024 HSV 1 IgG IA Qn (S) Positive Abnormal Negative [facility] HSV 2 IgG IA Qn (S) Negative Negative [facility] Interpretation and review of laboratory results Abnormal [facility] HSV 1 IgG Antibody Positive Abnormal Negative [facility] Comment on above: Performed By: #### H SVG12 #### [facility] (DEFAULT) [address] [address] HSV 2 IgG Antibody Negative Normal Negative [facility] Comment on above: Performed By: #### H SVG12 #### [facility] (DEFAULT) [address] [address] HSV IGM ANTIBODYon HSV I/II IgM Antibody Negative Normal Negative [facility] Comment on above: Performed By: #### H BSAG, HSVM, HBSAB #### [facility] (DEFAULT) [address] [address] M TUBERCULOSIS BY [place] CONNELL 11-08-2024 M. TB Mitogen-Nil 9.94 IU/mL Normal [facility] Comment on above: Order Comment: The M . Tuberculosis antigen levels cannot be correlated to stage or degree of infection, response to therapy or likelihood for progression to active disease. Results from QuantiFERON TB Gold Plus must be used in conjunction with individual epidemiological history, current medical status, and results of other diagnostic evaluation. Performed By: #### C A199 #### [facility] (DEFAULT) [address] [address] M. TB Nil 0.06 IU/mL Normal [facility] Comment on above: Order Comment: The M . Tuberculosis antigen levels cannot be correlated to stage or degree of infection, response to therapy or likelihood for progression to active disease. Results from QuantiFERON TB Gold Plus must be used in conjunction with individual epidemiological history, current medical status, and results of other diagnostic evaluation. Performed By: #### C A199 #### [facility] (DEFAULT) [address] [address] M. TB TB1-Nil 0.00 IU/mL Normal [facility] Comment on above: Order Comment: The M . Tuberculosis antigen levels cannot be correlated to stage or degree of infection, response to therapy or likelihood for progression to active disease. Results from QuantiFERON TB Gold Plus must be used in conjunction with individual epidemiological history, current medical status, and results of other diagnostic evaluation. Performed By: #### C A199 #### [facility] (DEFAULT) [address] [address] M. TB TB2-Nil 0.00 IU/mL Normal [facility] Comment on above: Order Comment: The M . Tuberculosis antigen levels cannot be correlated to stage or degree of infection, response to therapy or likelihood for progression to active disease. Results from QuantiFERON TB Gold Plus must be used in conjunction with individual epidemiological history, current medical status, and results of other diagnostic evaluation. Performed By: #### C A199 #### [facility] (DEFAULT) [address] [address] M. Tuberculosis by Quantiferon in tube Negative Normal Negative [facility] Comment on above: Order Comment: The M . Tuberculosis antigen levels cannot be correlated to stage or degree of infection, response to therapy or likelihood for progression to active disease. Results from QuantiFERON TB Gold Plus must be used in conjunction with individual epidemiological history, current medical status, and results of other diagnostic evaluation. Performed By: #### C A199 #### [facility] (DEFAULT) [address] [address] MAGNESIUMon 11-08-2024 Magnesium [Mass/Vol] 2 mg/dL 1.6 - 2 .6 mg/dL [facility] Magnesium [Mass/Vol] 2.0 mg/dL Normal 1.6-2.6 [facility] Comment on above: Performed By: #### H SVG12 #### [facility] (DEFAULT) [address] [address] No Panel InformationOrdered By: John Romano on 11-08-2024 Interpretation and review of laboratory results Normal [facility] No Panel Informationon 11-08 Interpretation and review of laboratory results Normal [facility] Interpretation and review of laboratory results Normal [facility] Interpretation and review of laboratory results Abnormal [facility] OSMOLALITYon 11-08-2024 Interpretation and review of laboratory results Normal [facility] Osmolality [Osmolality] 295 mosm/kg [facility] Osmolality, Serum 295 mOsm/kg Normal 278-305 [facility] Comment on above: Performed By: #### C A199 #### [facility] (DEFAULT) [address] [place] [address]36 PHOSPHATE, INORGANICon 11-08 Phosphate [Mass/Vol] 4.1 mg/dL 2.2 - 4 .6 mg/dL [facility] Phosphorous 4.1 mg/dL Normal 2.2-4.6 [facility] Comment on above: Performed By: #### A LCOSU #### [facility] (DEFAULT) [address] [place] [address]14 PRA CLASS (PRE-TRANSPLANT)on 11-08-2024 AB SPECIFICITY CLASS COMMENT Antibody Specificity testing performed by [employer]. cPRA calculation based on identification of HLA antibody specificities at MFI >2000 and/or presence of CREG antibodies. Normal [facility] Comment on above: Result Comment: Some of the reagents used for testing in the Clinical Histocompatibility Laboratory have yet to be approved by the FDA. Our certification by CLIA to perform high complexity tests allows us to use these reagents in the context of a stringent QC program, and obviates the need for FDA approval.Testing performed by the [facility] Clinical Histocompatibility Laboratory. [facility] number: [id number]. [place] number: [id number], Director: Sage Domingo, PhD, F([facility]). Performed By: #### A LCOSU #### [facility] (DEFAULT) [address] [place] [address]18 CLASS I SPECIFICITIES Not detected Normal O [facility] Comment on above: Performed By: #### A LCOSU #### [facility] (DEFAULT) [address] [place] [address] 56185 CLASS II SPECIFICITIES Not detected Normal [facility] Comment on above: Performed By: #### A LCOSU #### [facility] (DEFAULT) [address] [place] [address] 41807 cPRA 0 % Normal 0 [facility] Comment on above: Performed By: #### A LCOSU #### [facility] (DEFAULT) [address] [place] [address] 08560 PROTEIN TOTALon 11-08-2024 Protein [Mass/Vol] 7 g/dL 6.4 - 8.3 g/dL [facility] Protein [Mass/Vol] 7.0 g/dL Normal 6.4-8.3 [facility] Comment on above: Performed By: #### A LCOSU #### [facility] (DEFAULT) [address] [place] [address] 66067 PSA, SCREENINGon 11-08-2024 Interpretation and review of laboratory results Normal [facility] Prostate specific Ag [Mass/Vol] 0.74 ng/mL NINF - 4.00 ng/mL [facility] Comment on above: This test was perfor med on the Bio Immunoassay platform which is a 2-step sandwich chemiluminescent immunoassay. It is important to note that assays using different manufacturers and/or methods may not be comparable. [facility] PT,INR,PTTon 11-08-2024 aPTT Coag (PPP) [Time] 35.8 s High [facility] INR Coag (Bld) [Relative time] 1.1 {INR} 0.9 - 1.1 [facility] Interpretation and review of laboratory results Abnormal [facility] PT Coag (PPP) [Time] 14.5 s High [facility] aPTT Coag (Bld) [Time] 35.8 s High 24.0-34.3 [facility] Comment on above: Performed By: #### C A199 #### [facility] (DEFAULT) [address] [place] [address] INR Coag (PPP) [Relative time] 1.1 {INR} Normal 0.9-1.1 [facility] Comment on above: Performed By: #### C A199 #### [facility] (DEFAULT) [address] [place] [address] PT Coag (PPP) [Time] 14.5 s High 11.9-14.2 [facility] Comment on above: Performed By: #### C A199 #### [facility] (DEFAULT) [address] [place] [address]64 PTH INTACTon 11-08-2024 Interpretation and review of laboratory results Abnormal [facility] Parathyrin.intact [Mass/Vol] 502.3 pg/mL High 14.0 - 72.0 pg/mL [facility] Intact PTH 502.3 pg/mL High 14.0-72.0 [facility] Comment on above: Performed By: #### A LCOSU #### [facility] (DEFAULT) [address] [place] [address]903 SYPHILIS AB W/REFLEX RPRon 0 11-08-2024 Syphilis IgG/IGM Total Non-Reactive Normal Non Reactiv e [facility] Comment on above: Performed By: #### S URGP #### [facility] (DEFAULT) [address] [place] [address]7922 T. pallidum Ab Ql (S)on 10-26 T. pallidum IgG Ql (S) Non-Reactive Non Reactiv e [facility] TOXICOLOGY DRUG SCREEN, SERU 11-08-2024 Amphetamines Screen, Serum Not detected Normal [facility] Comment on above: Result Comment: Repo rting Limit: 20 ng/mL Synonym(s): Adderall; Amfetamine; Dextroamphetamine; Levoamphetamine Analysis by Enzyme-Linked Immunosorbent Assay (VINICIO) Performed By: #### C A199 #### [facility] (DEFAULT) [address] [address] Barbiturates Screen, Serum Not detected Normal [facility] Comment on above: Result Comment: Repo rting Limit: 0.040 mcg/mL Analysis by Enzyme-Linked Immunosorbent Assay (VINICIO) Performed By: #### C A199 #### [facility] (DEFAULT) [address] [address] Benzodiazepine Screen, Serum Not detected Normal [facility] Comment on above: Result Comment: Repo rting Limit: 100 ng/mL Synonym(s): Sedative; Tranquilizer Analysis by Enzyme-Linked Immunosorbent Assay (VINICIO) Performed By: #### C A199 #### [facility] (DEFAULT) [address] [address] Cannabinoids Screen, Serum Not detected Normal [facility] Comment on above: Result Comment: Repo rting Limit: 10 ng/mL Synonym(s): Cannabis; Hashish; Marihuana; Marijuana; THC Analysis by Enzyme-Linked Immunosorbent Assay (VINICIO) Performed By: #### C A199 #### [facility] (DEFAULT) [address] [address] Cocaine/Metabolites Screen, Serum Not detected Normal [facility] Comment on above: Result Comment: Repo rting Limit: 20 ng/mL Synonym(s): Blow; Crack; Snow Analysis by Enzyme-Linked Immunosorbent Assay (VINICIO) Performed By: #### C A199 #### [facility] (DEFAULT) [address] [address] Fentanyl/Acetyl Fentanyl Screen, Serum Not detected Normal [facility] Comment on above: Result Comment: Repo rting Limit: 0.50 ng/mL Analysis by Enzyme-Linked Immunosorbent Assay (VINICIO) Performed By: #### C A199 #### [facility] (DEFAULT) [address] [address] Methamphetamine/MDMA Screen, Serum Not detected Normal [facility] Comment on above: Result Comment: Repo rting Limit: 20 ng/mL Synonym(s): Desoxyn(R); Ecstasy; Meth; Denise Analysis by Enzyme-Linked Immunosorbent Assay (VINICIO) Performed By: #### C A199 #### [facility] (DEFAULT) [address] [address] Methodone Screen, Serum Not detected Normal [facility] Comment on above: Result Comment: Repo rting Limit: 25 ng/mL Analysis by Enzyme-Linked Immunosorbent Assay (VINICIO) Performed By: #### C A199 #### [facility] (DEFAULT) [address] [address] Opiates Screen, Serum Not detected Normal [facility] Comment on above: Result Comment: Repo rting Limit: 20 ng/mL Synonym(s): Codeine; Heroin; Morphine; Opium Analysis by Enzyme-Linked Immunosorbent Assay (VINICIO) Performed By: #### C A199 #### [facility] (DEFAULT) [address] [address] Oxycodone/Oxymorphone Screen, Serum Not detected Normal [facility] Comment on above: Result Comment: Repo rting Limit: 10 ng/mL Analysis by Enzyme-Linked Immunosorbent Assay (VINICIO) This test was developed and its performance characteristics determined by [employer]. It has not been cleared or approved by the [place] Food and Drug Administration. Digital data review may have taken place remotely by qualified [facility] staff utilizing a secure VPN connection for some or all of the reported results. This is in accordance with and follows CLIA regulations. Test Performed by: [employer] 38 [place] [id number] Performed By: #### C A199 #### [facility] (DEFAULT) [address] [address] Phencyclidine Screen, Serum Not detected Normal [facility] Comment on above: Result Comment: Repo rting Limit: 10 ng/mL Synonym(s): Omar Dust; PCP; Sherm Analysis by Enzyme-Linked Immunosorbent Assay (VINICIO) Performed By: #### C A199 #### [facility] (DEFAULT) [address] [place] [address] TYPE AND SCREENon 11-08-2024 ABO/RH(D) TYPE Positive [facility] Specimen Expiration 11/11/2024 23:59 [facility] ABO/RH(D) TYPE Positive Normal [facility] Comment on above: Performed By: #### H SVG12 #### [facility] (DEFAULT) [address] [place] [address] Specimen Expiration 11/11/2024 23:59 Normal [facility] Comment on above: Performed By: #### H SVG12 #### [facility] (DEFAULT) [address] [place] [address] URIC ACIDon 11-08-2024 Urate [Mass/Vol] 4.5 mg/dL 3.5 - 7.0 mg/dL [facility] Urate [Mass/Vol] 4.5 mg/dL Normal 3.5-7.0 [facility] Comment on above: Performed By: #### A BORLaurie #### [facility] (DEFAULT) [address] [address] VARICELLA IGG AB (IMM STATUS )on 11-08-2024 VZV IgG Ql (S) Positive Positive [facility] Comment on above: Prior exposure to e varicella zoster virus may cause measurable varicella zoster IgG antibody. A positive result indicates immunity through past immunization or prior infection. VZV IgG Qn (S) 3.4 [facility] Comment on above: THIS IS A QUALITATIV E ASSAY. The numeric value is not necessarily indicative of the amount of anti-Measles, Mumps, Rubella, or VZV IgG antibody present. Results should be interpreted in conjunction with clinical and epidemological data. [facility] Varicella Immune Status IgG Antibody Positive Normal Positive [facility] Comment on above: Result Comment: Prio r exposure to the varicella zoster virus may cause measurable varicella zoster IgG antibody. A positive result indicates immunity through past immunization or prior infection. Performed By: #### S URGP #### [facility] (DEFAULT) [address] [place] [address] Varicella Immune Status IgG Index 3.4 Normal [facility] Comment on above: Result Comment: THIS IS A QUALITATIVE ASSAY. The numeric value is not necessarily indicative of the amount of anti-Measles, Mumps, Rubella, or VZV IgG antibody present. Results should be interpreted in conjunction with clinical and epidemological data. Performed By: #### S URGP #### [facility] (DEFAULT) [address] [place] [address] XR CHEST PA AND LATERAL 2 EWSon [...] Normal IMPRESSION: No acute cardiopulmonary disease Normal [facility] XR Chest PA and Lateralon IMPRESSION: [...] Normal IMPRESSION IMPRESSION: No acute cardiopulmonary disease [facility] Radiology Study observation (narrative) [facility] XR Chest PA and LateralOrder ed By: Anuradha Belcher on 11-08-2024 [facility] Work Phone: Operative Reporton Operative Report Normal [facility] MR/BMS.BVSon 09-30-2024 MR/BMS.BVS Normal [facility] Gastroenterology Visit Repor ton 09-18-2024 Gastroenterology Visit Report Normal [facility] AV Fistula/Dialysis Graft Sc anon 09-13-2024 AV Fistula/Dialysis Graft Scan Normal [facility] CNCOon 09-13-2024 CNCO Letter Text Normal [facility] Emergency Department Summary on 09-12-2024 Emergency Department Summary Normal [facility] CNPNon 09-11-2024 CNPN Telephone (TXCTGL) -------- REGINALDO HUFFMAN ([id number]) 1970 M Date Time Provider Department 09/11/24 [...] 12 months for any organ) Reginaldo Huffman [phone] Spoke with: Patient Best Contact FOR PANCREAS AND KIDNEY/PANCREAS TRANSPLANT AGE 55+ is a HARD STOP If patient is NOT on Dialysis AND has a GFR >21 is a HARD STOP 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 No If the patient has Medicare A/B [...] Light activity COPD/Emphysema/Other pulmonary problem: No Dialysis: [facility] Mary Days: Dialysis start date: 05/12/2024 If [...] [facility] Hx of Hypertension? Yes Hx of GA/Heart Attack? No Hx of TIA/CVA or Stroke? No Are you on a blood thinner? No If YES which medication are you on? N/A Have you had a CABG or STENTS? No Have you ever had a Stress Test? [facility]. [address] [place] [address]. [phone]. 2019 Have you ever had an Echo? No Have you ever had a Cardiac Cath? No CT Abdomen/Pelvis: Yes. If yes, date and location: 4 month ago. [facility]. [address] [place] [address]. . Mammogram: No Pap Test: No Colonoscopy: [facility]. [address] [place] [address]. [phone]. 2019. 4 month ago. Hx of Lupus? No Sickle Cell Trait or Disease: No Have you had any prior surgeries? yes Colon cancer 2013 Do you have a potential living donor? No MyCHART Is the patient signed up for [employer]? No If YES - send patient the Kidney/Pancreas New Referral Message. If NO - obtain their email address AND send [employer] sign up information: email address: [email or web address] Is the patient okay with having a Virtual Appt: No ( patient does not have a computer) What facilities do we need outside records from: [facility]. [address] [place] [address]. [phone]. 2019 Have records been (more content not included)... Normal [facility] Absolute lymphocyte countOrd ered By: Jimmie Ibarra on 08-14-2024 Lymphocytes Auto (Unsp spec) [#/Vol] 1.23 10*3/uL 0.83-4.51 [facility] Absolute neutrophil countOrd ered By: Jimmie Ward on 08-14-2024 Neutrophils (Bld) [#/Vol] 3.0 10*3/uL 2.0-7.7 [facility] Albumin to globulin ratioOrd ered By: Jimmie Ibarra on 08-14-2024 Albumin/Globulin [Mass ratio] 0.9 {ratio} 0.9-2.4 [facility] Automated lymphocyte count a s percentage of total leukocytesOrdered By: Jimmie Ibarra on 08-14-2024 Lymphocytes/100 WBC Auto (Unsp spec) 26.1 % 19-41 [facility] Basophil percentageOrdered B y: Jimmie [facility] on 08-14-2024 Basophils/100 WBC (Bld) 0.6 % 0-1 [facility] Bilirubin, totalOrdered By: Jimmie Ward on 08-14-2024 Bilirubin [Mass/Vol] 0.30 mg/dL 0.20-1.00 [facility] Comment on above: For patients on eltr ombopag therapy, use of Dimension [place]ena TBIL is not recommended. Blood urea nitrogen (BUN)/cr eatinine ratioOrdered By: Jimmie Ward on 08-14-2024 Urea nitrogen/Creatinine [Mass ratio] 7.6 mg/mg Low 10-20 [facility] CBC W/Diff, Automatedon 07-28 Absolute Lymph 1.23 X10 3/uL Normal 0.83-4.51 [facility] Comment on above: Performed By: #### L 503.6030, L500.4050, L100.0100, L504.2610, L503.6550 ####[facility] [address] [place], [address] Absolute Neut 3.0 X10 3/uL Normal 2.0-7.7 [facility] Comment on above: Performed By: #### L 503.6030, L500.4050, L100.0100, L504.2610, L503.6550 ####[facility] [address] [place], [address] Basophils/100 WBC (Bld) 0.6 % Normal 0-1 [facility] Comment on above: Performed By: #### L 503.6030, L500.4050, L100.0100, L504.2610, L503.6550 ####[facility] [address] [place], [address] Eosinophils/100 WBC (Bld) 1.5 % Normal 0-5 [facility] Comment on above: Performed By: #### L 503.6030, L500.4050, L100.0100, L504.2610, L503.6550 ####[facility] [address] [place], [address] Erythrocyte distribution width (RBC) [Ratio] 15.9 % High 11.6-14.6 [facility] Comment on above: Performed By: #### L 503.6030, L500.4050, L100.0100, L504.2610, L503.6550 ####[facility] [address] [place], [address] Hematocrit (Bld) [Volume fraction] 21.8 % Low 40-54 [facility] Comment on above: Performed By: #### L 503.6030, L500.4050, L100.0100, L504.2610, L503.6550 ####[facility] [address] [place], [address] Hemoglobin (Bld) [Mass/Vol] 7.3 g/dL Low 13.0-16.5 [facility] Comment on above: Performed By: #### L 503.6030, L500.4050, L100.0100, L504.2610, L503.6550 ####[facility] [address] [place], [address] IG% 2.300 High 0.0-0.9 [facility] Comment on above: Result Comment: IG% - Immature Granulocytes (promyelocytes, myelocytes andmetamyelocytes) > 1% indicates that a LEFT SHIFT is Present. Performed By: #### L 503.6030, L500.4050, L100.0100, L504.2610, L503.6550 ####[facility] [address] [place], [address] Lymphocytes/100 WBC (Bld) 26.1 % Normal 19-41 [facility] Comment on above: Performed By: #### L 503.6030, L500.4050, L100.0100, L504.2610, L503.6550 ####[facility] [address] [place], [address] MCH (RBC) [Entitic mass] 31.7 pg Normal 27.0-32.0 [facility] Comment on above: Performed By: #### L 503.6030, L500.4050, L100.0100, L504.2610, L503.6550 ####[facility] [address] [place], [address] MCHC (RBC) [Mass/Vol] 33.5 g/dL Normal 32-36 [facility] Comment on above: Performed By: #### L 503.6030, L500.4050, L100.0100, L504.2610, L503.6550 ####[facility] [address] [place], [address] MCV (RBC) [Entitic vol] 94.8 fL High 80-94 [facility] Comment on above: Performed By: #### L 503.6030, L500.4050, L100.0100, L504.2610, L503.6550 ####[facility] [address] [place], [address] Monocytes/100 WBC (Bld) 6.6 % Normal 0-10 [facility] Comment on above: Performed By: #### L 503.6030, L500.4050, L100.0100, L504.2610, L503.6550 ####[facility] [address] [place], [address] Neutrophils/100 WBC (Bld) 62.9 % Normal 47-70 [facility] Comment on above: Performed By: #### L 503.6030, L500.4050, L100.0100, L504.2610, L503.6550 ####[facility] [address] [place], [address] Nucleated RBC (Bld) [#/Vol] 0 10*3/uL Normal 0-5 [facility] Comment on above: Performed By: #### L 503.6030, L500.4050, L100.0100, L504.2610, L503.6550 ####[facility] [address] [place], [address] Platelet mean volume (Bld) [Entitic vol] 11.2 fL Normal 6.2-12.0 [facility] Comment on above: Performed By: #### L 503.6030, L500.4050, L100.0100, L504.2610, L503.6550 ####[facility] [address] [place], [address] Platelets (Bld) [#/Vol] 137 10*3/uL Low 150-450 [facility] Comment on above: Performed By: #### L 503.6030, L500.4050, L100.0100, L504.2610, L503.6550 ####[facility] [address] [place], [address] RBC (Bld) [#/Vol] 2.30 10*6/uL Low 4.6-6.2 [facility] Comment on above: Performed By: #### L 503.6030, L500.4050, L100.0100, L504.2610, L503.6550 ####[facility] [address] [place], [address] RDW SD 54.5 fl High 35.1-43.9 [facility] Comment on above: Performed By: #### L 503.6030, L500.4050, L100.0100, L504.2610, L503.6550 ####[facility] [address] [place], [address] WBC (Bld) [#/Vol] 4.7 10*3/uL Normal 4.4-11.0 [facility] Comment on above: Performed By: #### L 503.6030, L500.4050, L100.0100, L504.2610, L503.6550 ####[facility] [address] [place], [address] Carbon dioxide measurementOr dered By: Jimmie Ibarra on 08-14-2024 CO2 [Moles/Vol] 32.0 mmol/L 21.0-32.0 [facility] Chloride measurementOrdered By: Jimmie Ibarra on 08-14-2024 Chloride [Moles/Vol] 103 mmol/L 98-107 [facility] Comprehensive Metabolic Prof ilon 08-14-2024 Albumin [Mass/Vol] 3.0 g/dL Low 3.2-5.0 [facility] Comment on above: Order Comment: 1 Performed By: #### L 503.6030, L500.4050, L100.0100, L504.2610, L503.6550 ####[facility] [address] [place], [address] Albumin/Globulin [Mass ratio] 0.9 {ratio} Normal 0.9-2.4 [facility] Comment on above: Order Comment: 1 Performed By: #### L 503.6030, L500.4050, L100.0100, L504.2610, L503.6550 ####[facility] [address] [place], [address] ALK P 49 U/L Normal 45-117 [facility] Comment on above: Order Comment: 1 Performed By: #### L 503.6030, L500.4050, L100.0100, L504.2610, L503.6550 ####[facility] [address] [place], [address] ALT [Catalytic activity/Vol] 15 U/L Low 16-61 [facility] Comment on above: Order Comment: 1 Performed By: #### L 503.6030, L500.4050, L100.0100, L504.2610, L503.6550 ####[facility] [address] [place], [address] AST [Catalytic activity/Vol] 11 U/L Low 15-37 [facility] Comment on above: Order Comment: 1 Performed By: #### L 503.6030, L500.4050, L100.0100, L504.2610, L503.6550 ####[facility] [address] [place], [address] Bilirubin [Mass/Vol] 0.30 mg/dL Normal 0.20-1.00 [facility] Comment on above: Order Comment: 1 Result Comment: For patients on eltrombopag therapy, use of Dimension [place]ena TBIL is not recommended. Performed By: #### L 503.6030, L500.4050, L100.0100, L504.2610, L503.6550 ####[facility] [address] [place], [address] BUN/CRE 7.6 RATIO Low 10-20 [facility] Comment on above: Order Comment: 1 Performed By: #### L 503.6030, L500.4050, L100.0100, L504.2610, L503.6550 ####[facility] [address] [place], [address] CA,Total 8.4 mg/dL Low 8.5-10.1 [facility] Comment on above: Order Comment: 1 Performed By: #### L 503.6030, L500.4050, L100.0100, L504.2610, L503.6550 ####[facility] [address] [place], [address] Chloride [Moles/Vol] 103 mmol/L Normal 98-107 [facility] Comment on above: Order Comment: 1 Performed By: #### L 503.6030, L500.4050, L100.0100, L504.2610, L503.6550 ####[facility] [address] [place], [address] CO2 [Moles/Vol] 32.0 mmol/L Normal 21.0-32.0 [facility] Comment on above: Order Comment: 1 Performed By: #### L 503.6030, L500.4050, L100.0100, L504.2610, L503.6550 ####[facility] [address] [place], [address] Creatinine [Mass/Vol] 5.37 mg/dL High 0.70-1.30 [facility] Comment on above: Order Comment: 1 Result Comment: The validity of the calculated GFR GFRAA in patients over70 years has not been determined. Clinical correlation isessential. Performed By: #### L 503.6030, L500.4050, L100.0100, L504.2610, L503.6550 ####[facility] [address] [place], [address] ECRCL 17.08 ml/min Normal [facility] Comment on above: Order Comment: 1 Performed By: #### L 503.6030, L500.4050, L100.0100, L504.2610, L503.6550 ####[facility] [address] [place], [address] EST GFR - AA 14 mL/min Low >60 [facility] Comment on above: Order Comment: 1 Result Comment: Afri can Polish GFR Calc Performed By: #### L 503.6030, L500.4050, L100.0100, L504.2610, L503.6550 ####[facility] [address] [place], [address] GAP 2 Low 5-15 [facility] Comment on above: Order Comment: 1 Performed By: #### L 503.6030, L500.4050, L100.0100, L504.2610, L503.6550 ####[facility] [address] [place], [address] GFR/1.73 sq M.predicted among non-blacks MDRD (S/P/Bld) [Vol rate/Area] 12 mL/min/{1.73_m2} Low >60 [facility] Comment on above: Order Comment: 1 Result Comment: Non- GFR Calc Performed By: #### L 503.6030, L500.4050, L100.0100, L504.2610, L503.6550 ####[facility] [address] [place], [address] Globulin (S) [Mass/Vol] 3.5 g/dL Normal 2.2-4.2 [facility] Comment on above: Order Comment: 1 Performed By: #### L 503.6030, L500.4050, L100.0100, L504.2610, L503.6550 ####[facility] [address] [place], [address] Glucose [Mass/Vol] 190 mg/dL High 74-106 [facility] Comment on above: Order Comment: 1 Result Comment: Fast ing Glucose result greater than or equal to 126 mg/dLsuggests DIABETES MELLITUS per A.D.A. criteria. Performed By: #### L 503.6030, L500.4050, L100.0100, L504.2610, L503.6550 ####[facility] [address] [place], [address] Potassium [Moles/Vol] 4.1 mmol/L Normal 3.5-5.1 [facility] Comment on above: Order Comment: 1 Performed By: #### L 503.6030, L500.4050, L100.0100, L504.2610, L503.6550 ####[facility] [address] [place], [address] Sodium [Moles/Vol] 137 mmol/L Normal 136-145 [facility] Comment on above: Order Comment: 1 Performed By: #### L 503.6030, L500.4050, L100.0100, L504.2610, L503.6550 ####[facility] [address] [place], [address] T PROT 6.5 g/dL Normal 6.4-8.2 [facility] Comment on above: Order Comment: 1 Performed By: #### L 503.6030, L500.4050, L100.0100, L504.2610, L503.6550 ####[facility] [address] [place], [address] Urea nitrogen [Mass/Vol] 41 mg/dL High 7-18 [facility] Comment on above: Order Comment: 1 Performed By: #### L 503.6030, L500.4050, L100.0100, L504.2610, L503.6550 ####[facility] [address] [place], [address] Eosinophil percentageOrdered By: Jimmie Ibarra on 08-14-2024 Eosinophils/100 WBC (Bld) 1.5 % 0-5 [facility] Erythrocyte distribution wid th ratioOrdered By: Jimmie Ibarra on 08-14-2024 Erythrocyte distribution width (RBC) [Ratio] 15.9 % High 11.6-14.6 [facility] Erythrocyte distribution wid th standard deviationOrdered By: Jimmie Ibarra on 08-14-2024 Erythrocyte distribution width (RBC) [Ratio] 54.5 fl High 35.1-43.9 [facility] Ferritinon 08-14-2024 Ferritin [Mass/Vol] 507 ng/mL High 26-388 [facility] Comment on above: Order Comment: 1 Performed By: #### L 503.6030, L500.4050, L100.0100, L504.2610, L503.6550 ####[facility] [address] [place], [address] Ferritin measurementOrdered By: Jimmie Ibarra on 08-14-2024 Ferritin [Mass/Vol] 507 ng/mL High 26-388 [facility] Glomerular filtration rate ( GFR) estimationOrdered By: Jimmie Ibarra on 08-14-2024 GFR/1.73 sq M.predicted among non-blacks MDRD (S/P/Bld) [Vol rate/Area] 12 mL/min/{1.73_m2} Low >60 [facility] Comment on above: Non- GFR Calc Glucose measurementOrdered B y: Jimmie Ibarra on 08-14-2024 Glucose [Mass/Vol] 190 mg/dL High 74-106 [facility] Comment on above: Fasting Glucose resu lt greater than or equal to 126 mg/dL suggests DIABETES MELLITUS per A.D.A. criteria. Hematocrit Auto (Bld) [Volum e fraction]Ordered By: Jimmie Ibarra on 08-14-2024 Hematocrit (Bld) [Volume fraction] 21.8 % Low 40-54 [facility] Hemoglobin measurementOrdere d By: Jimmie Ibarra on 08-14-2024 Hemoglobin (Bld) [Mass/Vol] 7.3 g/dL Low 13.0-16.5 [facility] Immature granulocytes/100 WB C Auto (Bld)Ordered By: Jimmie Ibarra on 08-14-2024 Immature granulocytes/100 WBC (Bld) 2.300 % High 0.0-0.9 [facility] Comment on above: IG% - Immature Granu locytes (promyelocytes, myelocytes and metamyelocytes) > 1% indicates that a LEFT SHIFT is Present. Iron measurement (mass/mass) Ordered By: Jimmie Ibarra on 08-14-2024 Iron (Unsp spec) [Mass/Mass] 112 ug/dL 65-175 [facility] Iron+Iron Binding Capacityon 08-14-2024 Iron [Mass/Vol] 112 ug/dL Normal 65-175 [facility] Comment on above: Order Comment: 1 Performed By: #### L 503.6030, L500.4050, L100.0100, L504.2610, L503.6550 ####[facility] [address] [place], [address] IRON SATURATION 41.2 Normal 15.0-55.0 [facility] Comment on above: Order Comment: 1 Performed By: #### L 503.6030, L500.4050, L100.0100, L504.2610, L503.6550 ####[facility] [address] [place], [address] TIBC 272 ug/dL Normal 250-450 [facility] Comment on above: Order Comment: 1 Performed By: #### L 503.6030, L500.4050, L100.0100, L504.2610, L503.6550 ####[facility] [address] [place], [address] LDHon 08-14-2024 LDH 203 U/L Normal 87-241 [facility] Comment on above: Order Comment: 1 Performed By: #### L 503.6030, L500.4050, L100.0100, L504.2610, L503.6550 ####[facility] [address] [place], [address] Laboratory - Chemistry and C hemistry - challengeOrdered By: Jimmie Ibarra on 08-14-2024 AST [Catalytic activity/Vol] 11 U/L Low 15-37 [facility] Lactate dehydrogenase (LDH) measurementOrdered By: Jimmie Ibarra on 08-14-2024 LDH [Catalytic activity/Vol] 203 U/L 87-241 [facility] MCV (mean corpuscular volume ) determinationOrdered By: Jimmie Ibarra on 08-14-2024 MCV (RBC) [Entitic vol] 94.8 fL High 80-94 [facility] Mean corpuscular hemoglobin (MCH) determinationOrdered By: Jimmie Ibarra on 08-14-2024 MCH (RBC) [Entitic mass] 31.7 pg 27.0-32.0 [facility] Mean corpuscular hemoglobin concentration (MCHC) determinationOrdered By: Jimmie Ibarra on 08-14-2024 MCHC (RBC) [Mass/Vol] 33.5 g/dL 32-36 [facility] Mean platelet volume determi nationOrdered By: Jimmie Ibarra on 08-14-2024 Platelet mean volume (Bld) [Entitic vol] 11.2 fL 6.2-12.0 [facility] Monocyte percentageOrdered B y: Jimmie Ibarra on 08-14-2024 Monocytes/100 WBC (Bld) 6.6 % 0-10 [facility] Neutrophil percentageOrdered By: Jimmie Ibarra on 08-14-2024 Neutrophils/100 WBC (Bld) 62.9 % 47-70 [facility] Nucleated red blood cell per centageOrdered By: Jimmie Ibarra on 08-14-2024 Nucleated RBC/100 WBC (Bld) [Ratio] 0 % 0-5 [facility] Oncology Visit Reporton 07-28 Oncology Visit Report Normal [facility] Platelet countOrdered By: Anastasia Ibarra on 08-14-2024 Platelets (Bld) [#/Vol] 137 10*3/uL Low 150-450 [facility] Potassium measurementOrdered By: Jimmie Ibarra on 08-14-2024 Potassium [Moles/Vol] 4.1 mmol/L 3.5-5.1 [facility] RBC Auto (Bld) [#/Vol]Ordere d By: Jimmie Ibarra on 08-14-2024 RBC (Bld) [#/Vol] 2.30 10*6/uL Low 4.6-6.2 [facility] Serum anion gap measurementO rdered By: Jimmie Ibarra on 08-14-2024 Anion gap [Moles/Vol] 2 mmol/L Low 5-15 [facility] Serum globulin measurementOr dered By: Jimmie Ibarra on 08-14-2024 Globulin (S) [Mass/Vol] 3.5 g/dL 2.2-4.2 [facility] Serum or plasma alanine meng otransferase (ALT) measurementOrdered By: Jimmie Ibarra on 08-14-2024 ALT [Catalytic activity/Vol] 15 U/L Low 16-61 [facility] Serum or plasma albumin abhi urement (mass/volume)Ordered By: Jimmie Ibarra on 08-14-2024 Albumin [Mass/Vol] 3.0 g/dL Low 3.2-5.0 [facility] Serum or plasma alkaline jaspreet sphatase measurementOrdered By: Jimmie Ibarra on 08-14-2024 ALP [Catalytic activity/Vol] 49 U/L 45-117 [facility] Serum or plasma calcium abhi urement (mass/volume)Ordered By: Jimmie Ibarra on 08-14-2024 Calcium [Mass/Vol] 8.4 mg/dL Low 8.5-10.1 [facility] Serum or plasma creatinine m easurement (mass/volume)Ordered By: Jimmie Ibarra on 08-14-2024 Creatinine [Mass/Vol] 5.37 mg/dL High 0.70-1.30 [facility] Comment on above: The validity of the calculated GFR & GFRAA in patients over 70 years has not been determined. Clinical correlation is essential. Serum or plasma iron saturat ion measurement (mass fraction)Ordered By: Jimmie Ibarra on 08-14-2024 Iron saturation [Mass fraction] 41.2 % 15.0-55.0 [facility] Serum or plasma urea nitroge n measurement (mass/volume)Ordered By: Jimmie Ibarra on 08-14-2024 Urea nitrogen [Mass/Vol] 41 mg/dL High 7-18 [facility] Sodium levelOrdered By: Omid Ibarra on 08-14-2024 Sodium [Moles/Vol] 137 mmol/L 136-145 [facility] Total proteinOrdered By: Brandt Ibarra on 08-14-2024 Protein [Mass/Vol] 6.5 g/dL 6.4-8.2 [facility] White blood cell (WBC) count Ordered By: Jimmie Ibarra on 08-14-2024 WBC (Bld) [#/Vol] 4.7 10*3/uL 4.4-11.0 [facility] Surgery Visit Reporton 08-07 Surgery Visit Report Normal [facility] Hemoglobinon 08-01-2024 Hemoglobin (Bld) [Mass/Vol] 7.2 g/dL Low 13.0-16.5 [facility] Comment on above: Performed By: #### L 100.1300 ####[facility] [address] [place], [address] Erythropoietinon 07-29-2024 ERYTHROPOIETIN 8.1 mIU/mL Normal 2.6-18.5 [facility] Comment on above: Result Comment: AgroSavfe UniCNeonode DxI 800 Immunoassay SystemValues obtained with different assay methods or kits cannotbe used interchangeably. Results cannot be interpreted asabsolute evidence of the presence or absence of malignantdisease.Performed at: [facility] Director: Bradley Peña PhD, Phone: [phone] Performed By: #### L 501.7900, L3540.1355 ####[facility] [address] [place], [place], [id number] Carbamazepine (Tegretol)on 09-25-2023 CARBAMAZEPINE 11.4 ug/mL Normal 4.0-12.0 [facility] Comment on above: Performed By: #### L 501.7900, L3100.1350 ####[facility] [address] [place], [address] Basic Metabolic Profile (BMP )on 07-23-2024 BUN/CRE 7.2 RATIO Low 10-20 [facility] Comment on above: Performed By: #### L 500.2500, BTSPAT, L100.0500 ####[facility] [address] [place], [place], [id number] CA,Total 7.9 mg/dL Low 8.5-10.1 [facility] Comment on above: Performed By: #### L 500.2500, BTSPAT, L100.0500 ####[facility] [address] [place], [address] Chloride [Moles/Vol] 105 mmol/L Normal 98-107 [facility] Comment on above: Performed By: #### L 500.2500, BTSPAT, L100.0500 ####[facility] [address] [place], [address] CO2 [Moles/Vol] 31.0 mmol/L Normal 21.0-32.0 [facility] Comment on above: Performed By: #### L 500.2500, BTSPAT, L100.0500 ####[facility] [address] [place], [address] Creatinine [Mass/Vol] 4.17 mg/dL High 0.70-1.30 [facility] Comment on above: Result Comment: The validity of the calculated GFR GFRAA in patients over70 years has not been determined. Clinical correlation isessential. Performed By: #### L 500.2500, BTSPAT, L100.0500 ####[facility] [address] [place], [address] ECRCL 21.96 ml/min Normal [facility] Comment on above: Performed By: #### L 500.2500, BTSPAT, L100.0500 ####[facility] [address] [place], [address] EST GFR - AA 19 mL/min Low >60 [facility] Comment on above: Result Comment: Afri can Polish GFR Calc Performed By: #### L 500.2500, BTSPAT, L100.0500 ####[facility] [address] [place], [address] GAP 4 Low 5-15 [facility] Comment on above: Performed By: #### L 500.2500, BTSPAT, L100.0500 ####[facility] [address] [place], [address] GFR/1.73 sq M.predicted among non-blacks MDRD (S/P/Bld) [Vol rate/Area] 16 mL/min/{1.73_m2} Low >60 [facility] Comment on above: Result Comment: Non- GFR Calc Performed By: #### L 500.2500, BTSPAT, L100.0500 ####[facility] [address] [place], [address] Glucose [Mass/Vol] 86 mg/dL Normal 74-106 [facility] Comment on above: Performed By: #### L 500.2500, BTSPAT, L100.0500 ####[facility] [address] [place], [address] Potassium [Moles/Vol] 4.4 mmol/L Normal 3.5-5.1 [facility] Comment on above: Performed By: #### L 500.2500, BTSPAT, L100.0500 ####[facility] [address] [place], [address] Sodium [Moles/Vol] 140 mmol/L Normal 136-145 [facility] Comment on above: Performed By: #### L 500.2500, BTSPAT, L100.0500 ####[facility] [address] [place], [address] Urea nitrogen [Mass/Vol] 30 mg/dL High 7-18 [facility] Comment on above: Performed By: #### L 500.2500, BTSPAT, L100.0500 ####[facility] [address] [place], [address] Bedside Glucoseon 07-23-2024 FINGERSTICK GLU 89 mg/dL Normal 74-106 [facility] Comment on above: Result Comment: AAMIR GEMENT OF PATIENT CARE PER NURSING PROTOCOL Performed By: #### L 501.080 ####[facility] [address] [place], [address] FINGERSTICK GLU 56 mg/dL Low 74-106 [facility] Comment on above: Result Comment: AAMIR GEMENT OF PATIENT CARE PER NURSING PROTOCOL Performed By: #### L 501.080 ####[facility] [address] [place], [address] FINGERSTICK GLU 81 mg/dL Normal 74-106 [facility] Comment on above: Result Comment: AAMIR GEMENT OF PATIENT CARE PER NURSING PROTOCOL Performed By: #### L 501.080 ####[facility] [address] [place], [address] CBC-Complete Blood Cnt No Di ffon 07-23-2024 Erythrocyte distribution width (RBC) [Ratio] 14.4 % Normal 11.6-14.6 [facility] Comment on above: Performed By: #### L 500.2500, BTSPAT, L100.0500 ####[facility] [address] [place], [address] Hematocrit (Bld) [Volume fraction] 22.6 % Low 40-54 [facility] Comment on above: Performed By: #### L 500.2500, BTSPAT, L100.0500 ####[facility] [address] [place], [address] Hemoglobin (Bld) [Mass/Vol] 7.2 g/dL Low 13.0-16.5 [facility] Comment on above: Performed By: #### L 500.2500, BTSPAT, L100.0500 ####[facility] [address] [place], [address] MCH (RBC) [Entitic mass] 29.6 pg Normal 27.0-32.0 [facility] Comment on above: Performed By: #### L 500.2500, BTSPAT, L100.0500 ####[facility] [address] [place], [address] MCHC (RBC) [Mass/Vol] 31.9 g/dL Low 32-36 [facility] Comment on above: Performed By: #### L 500.2500, BTSPAT, L100.0500 ####[facility] [address] [place], [address] MCV (RBC) [Entitic vol] 93.0 fL Normal 80-94 [facility] Comment on above: Performed By: #### L 500.2500, BTSPAT, L100.0500 ####[facility] [address] [place], [address] Platelet mean volume (Bld) [Entitic vol] 10.1 fL Normal 6.2-12.0 [facility] Comment on above: Performed By: #### L 500.2500, BTSPAT, L100.0500 ####[facility] [address] [place], [address] Platelets (Bld) [#/Vol] 116 10*3/uL Low 150-450 [facility] Comment on above: Performed By: #### L 500.2500, BTSPAT, L100.0500 ####[facility] [address] [place], [address] RBC (Bld) [#/Vol] 2.43 10*6/uL Low 4.6-6.2 [facility] Comment on above: Performed By: #### L 500.2500, BTSPAT, L100.0500 ####[facility] [address] [place], [address] RDW SD 48.3 fl High 35.1-43.9 [facility] Comment on above: Performed By: #### L 500.2500, BTSPAT, L100.0500 ####[facility] [address] [place], [address] WBC (Bld) [#/Vol] 3.6 10*3/uL Low 4.4-11.0 [facility] Comment on above: Performed By: #### L 500.2500, BTSPAT, L100.0500 ####[facility] [address] [place], [address] Discharge Instructionon 06-29 Discharge Instruction Normal [facility] MR/POSTOP.ANEon 07-23-2024 MR/POSTOP.ANE Normal [facility] MR/NRVHNRIZ1bc 07-23-2024 MR/POSTOPAN2 Normal [facility] Operative Reporton Operative Report Normal [facility] Type AND Screen - PAT ONLYon 07-23-2024 ABO and Rh group Nom (Bld) Blood group O Rh(D) positive Normal [facility] Comment on above: Order Comment: Surge ry Date: 07/23/24Reason for Laboratory Test [id number]/[id number] FISTULA CREATION Performed By: #### L 500.2500, BTSPAT, L100.0500 ####[facility] [address] [place], [address] MR/BMS.BVSon 07-19-2024 MR/BMS.BVS Normal [facility] Bedside Glucoseon 07-10-2024 FINGERSTICK GLU 112 mg/dL High 74-106 [facility] Comment on above: Result Comment: AAMIR GEMENT OF PATIENT CARE PER NURSING PROTOCOL Performed By: #### L 501.080 ####[facility] [address] [place], [address] FINGERSTICK GLU 149 mg/dL High 74-106 [facility] Comment on above: Result Comment: AAMIR GEMENT OF PATIENT CARE PER NURSING PROTOCOL Performed By: #### L 501.080 ####[facility] [address] [place], [address] FINGERSTICK GLU 164 mg/dL High 74-106 [facility] Comment on above: Result Comment: AAMIR QUIROGA OF PATIENT CARE PER NURSING PROTOCOL Performed By: #### L 501.080 ####[facility] [address] [place], [address] CBC-Complete Blood Cnt No Di ffon 07-10-2024 Erythrocyte distribution width (RBC) [Ratio] 13.9 % Normal 11.6-14.6 [facility] Comment on above: Performed By: #### L 100.0500 ####[facility] [address] [place], [address] Hematocrit (Bld) [Volume fraction] 24.9 % Low 40-54 [facility] Comment on above: Performed By: #### L 100.0500 ####[facility] [address] [place], [address] Hemoglobin (Bld) [Mass/Vol] 8.6 g/dL Low 13.0-16.5 [facility] Comment on above: Performed By: #### L 100.0500 ####[facility] [address] [place], [address] MCH (RBC) [Entitic mass] 30.2 pg Normal 27.0-32.0 [facility] Comment on above: Performed By: #### L 100.0500 ####[facility] [address] [place], [address] MCHC (RBC) [Mass/Vol] 34.5 g/dL Normal 32-36 [facility] Comment on above: Performed By: #### L 100.0500 ####[facility] [address] [place], [address] MCV (RBC) [Entitic vol] 87.4 fL Normal 80-94 [facility] Comment on above: Performed By: #### L 100.0500 ####[facility] [address] [place], [address] Platelet mean volume (Bld) [Entitic vol] 10.3 fL Normal 6.2-12.0 [facility] Comment on above: Performed By: #### L 100.0500 ####[facility] [address] [place], [address] Platelets (Bld) [#/Vol] 168 10*3/uL Normal 150-450 [facility] Comment on above: Performed By: #### L 100.0500 ####[facility] [address] [place], [address] RBC (Bld) [#/Vol] 2.85 10*6/uL Low 4.6-6.2 [facility] Comment on above: Performed By: #### L 100.0500 ####[facility] [address] [place], [address] RDW SD 44.2 fl High 35.1-43.9 [facility] Comment on above: Performed By: #### L 100.0500 ####[facility] [address] [place], [address] WBC (Bld) [#/Vol] 5.7 10*3/uL Normal 4.4-11.0 [facility] Comment on above: Performed By: #### L 100.0500 ####[facility] [address] [place], [address] Discharge Instructionon 06-28 Discharge Instruction Normal [facility] Renal Profileon 07-10-2024 Albumin [Mass/Vol] 2.5 g/dL Low 3.2-5.0 [facility] Comment on above: Performed By: #### L 500.3600 ####[facility] [address] [place], [address] BUN/CRE 9.7 RATIO Low 10-20 [facility] Comment on above: Performed By: #### L 500.3600 ####[facility] [address] [place], [address] CA,Total 7.9 mg/dL Low 8.5-10.1 [facility] Comment on above: Performed By: #### L 500.3600 ####[facility] [address] [place], [address] Chloride [Moles/Vol] 98 mmol/L Normal 98-107 [facility] Comment on above: Performed By: #### L 500.3600 ####[facility] [address] [place], [address] CO2 [Moles/Vol] 22.0 mmol/L Normal 21.0-32.0 [facility] Comment on above: Performed By: #### L 500.3600 ####[facility] [address] [place], [address] Creatinine [Mass/Vol] 5.47 mg/dL High 0.70-1.30 [facility] Comment on above: Result Comment: The validity of the calculated GFR GFRAA in patients over70 years has not been determined. Clinical correlation isessential. Performed By: #### L 500.3600 ####[facility] [address] [place], [address] ECRCL 17.13 ml/min Normal [facility] Comment on above: Performed By: #### L 500.3600 ####[facility] [address] [place], [address] EST GFR - AA 14 mL/min Low >60 [facility] Comment on above: Result Comment: Afri can Polish GFR Calc Performed By: #### L 500.3600 ####[facility] [address] [place], [address] GFR/1.73 sq M.predicted among non-blacks MDRD (S/P/Bld) [Vol rate/Area] 12 mL/min/{1.73_m2} Low >60 [facility] Comment on above: Result Comment: Non- GFR Calc Performed By: #### L 500.3600 ####[facility] [address] [place], [address] Glucose [Mass/Vol] 152 mg/dL High 74-106 [facility] Comment on above: Result Comment: Fast ing Glucose result greater than or equal to 126 mg/dLsuggests DIABETES MELLITUS per A.D.A. criteria. Performed By: #### L 500.3600 ####[facility] [address] [place], [address] Phosphate [Mass/Vol] 4.8 mg/dL Normal 2.5-4.9 [facility] Comment on above: Performed By: #### L 500.3600 ####[facility] [address] [place], [address] Potassium [Moles/Vol] 4.3 mmol/L Normal 3.5-5.1 [facility] Comment on above: Performed By: #### L 500.3600 ####[facility] [address] [place], [address] Sodium [Moles/Vol] 128 mmol/L Low 136-145 [facility] Comment on above: Performed By: #### L 500.3600 ####[facility] [address] [place], [address] Urea nitrogen [Mass/Vol] 53 mg/dL High 7-18 [facility] Comment on above: Performed By: #### L 500.3600 ####[facility] [address] [place], [address] Bedside Glucoseon 07-09-2024 FINGERSTICK GLU 161 mg/dL High 74-106 [facility] Comment on above: Result Comment: AAMIR GEMENT OF PATIENT CARE PER NURSING PROTOCOL Performed By: #### L 501.080 ####[facility] [address] [place], [address] FINGERSTICK GLU 188 mg/dL High 74-106 [facility] Comment on above: Result Comment: AAMIR GEMENT OF PATIENT CARE PER NURSING PROTOCOL Performed By: #### L 501.080 ####[facility] [address] [place], [address] FINGERSTICK GLU 191 mg/dL High 74-106 [facility] Comment on above: Result Comment: AAMIR GEMENT OF PATIENT CARE PER NURSING PROTOCOL Performed By: #### L 501.080 ####[facility] [address] [place], [address] FINGERSTICK GLU 138 mg/dL High 74-106 [facility] Comment on above: Result Comment: AAMIR GEMENT OF PATIENT CARE PER NURSING PROTOCOL Performed By: #### L 501.080 ####[facility] [address] [place], [address] CBC W/Diff, Automatedon 06-28 Absolute Lymph 1.17 X10 3/uL Normal 0.83-4.51 [facility] Comment on above: Performed By: #### L 500.4050, L100.0100 ####[facility] [address] [place], [address] Absolute Neut 3.0 X10 3/uL Normal 2.0-7.7 [facility] Comment on above: Performed By: #### L 500.4050, L100.0100 ####[facility] [address] [place], [address] Basophils/100 WBC (Bld) 0.4 % Normal 0-1 [facility] Comment on above: Performed By: #### L 500.4050, L100.0100 ####[facility] [address] [place], [address] Eosinophils/100 WBC (Bld) 3.0 % Normal 0-5 [facility] Comment on above: Performed By: #### L 500.4050, L100.0100 ####[facility] [address] [place], [address] Erythrocyte distribution width (RBC) [Ratio] 13.8 % Normal 11.6-14.6 [facility] Comment on above: Performed By: #### L 500.4050, L100.0100 ####[facility] [address] [place], [address] Hematocrit (Bld) [Volume fraction] 22.0 % Low 40-54 [facility] Comment on above: Performed By: #### L 500.4050, L100.0100 ####[facility] [address] [place], [address] Hemoglobin (Bld) [Mass/Vol] 7.4 g/dL Low 13.0-16.5 [facility] Comment on above: Performed By: #### L 500.4050, L100.0100 ####[facility] [address] [place], [address] IG% 0.700 Normal 0.0-0.9 [facility] Comment on above: Result Comment: IG% - Immature Granulocytes (promyelocytes, myelocytes andmetamyelocytes) > 1% indicates that a LEFT SHIFT is Present. Performed By: #### L 500.4050, L100.0100 ####[facility] [address] [place], [address] Lymphocytes/100 WBC (Bld) 25.4 % Normal 19-41 [facility] Comment on above: Performed By: #### L 500.4050, L100.0100 ####[facility] [address] [place], [address] MCH (RBC) [Entitic mass] 29.1 pg Normal 27.0-32.0 [facility] Comment on above: Performed By: #### L 500.4050, L100.0100 ####[facility] [address] [place], [address] MCHC (RBC) [Mass/Vol] 33.6 g/dL Normal 32-36 [facility] Comment on above: Performed By: #### L 500.4050, L100.0100 ####[facility] [address] [place], [address] MCV (RBC) [Entitic vol] 86.6 fL Normal 80-94 [facility] Comment on above: Performed By: #### L 500.4050, L100.0100 ####[facility] [address] [place], [address] Monocytes/100 WBC (Bld) 6.3 % Normal 0-10 [facility] Comment on above: Performed By: #### L 500.4050, L100.0100 ####[facility] [address] [place], [address] Neutrophils/100 WBC (Bld) 64.2 % Normal 47-70 [facility] Comment on above: Performed By: #### L 500.4050, L100.0100 ####[facility] [address] [place], [address] Nucleated RBC (Bld) [#/Vol] 0 10*3/uL Normal 0-5 [facility] Comment on above: Performed By: #### L 500.4050, L100.0100 ####[facility] [address] [place], [address] Platelet mean volume (Bld) [Entitic vol] 10.6 fL Normal 6.2-12.0 [facility] Comment on above: Performed By: #### L 500.4050, L100.0100 ####[facility] [address] [place], [address] Platelets (Bld) [#/Vol] 147 10*3/uL Low 150-450 [facility] Comment on above: Performed By: #### L 500.4050, L100.0100 ####[facility] [address] [place], [address] RBC (Bld) [#/Vol] 2.54 10*6/uL Low 4.6-6.2 [facility] Comment on above: Performed By: #### L 500.4050, L100.0100 ####[facility] [address] [place], [address] RDW SD 43.2 fl Normal 35.1-43.9 [facility] Comment on above: Performed By: #### L 500.4050, L100.0100 ####[facility] [address] [place], [address] WBC (Bld) [#/Vol] 4.6 10*3/uL Normal 4.4-11.0 [facility] Comment on above: Performed By: #### L 500.4050, L100.0100 ####[facility] [address] [place], [address] Comprehensive Metabolic Prof [facility] 07-09-2024 Albumin [Mass/Vol] 2.2 g/dL Low 3.2-5.0 [facility] Comment on above: Performed By: #### L 500.4050, L100.0100 ####[facility] [address] [place], [address] Albumin/Globulin [Mass ratio] 0.7 {ratio} Low 0.9-2.4 [facility] Comment on above: Performed By: #### L 500.4050, L100.0100 ####[facility] [address] [place], [address] ALK P 41 U/L Low 45-117 [facility] Comment on above: Performed By: #### L 500.4050, L100.0100 ####[facility] [address] [place], [address] ALT [Catalytic activity/Vol] U/L Low 16-61 [facility] Comment on above: Performed By: #### L 500.4050, L100.0100 ####[facility] [address] [place], [address] AST [Catalytic activity/Vol] 20 U/L Normal 15-37 [facility] Comment on above: Performed By: #### L 500.4050, L100.0100 ####[facility] [address] [place], [address] Bilirubin [Mass/Vol] 0.20 mg/dL Normal 0.20-1.00 [facility] Comment on above: Result Comment: For patients on eltrombopag therapy, use of Dimension [place] TBIL is not recommended. Performed By: #### L 500.4050, L100.0100 ####[facility] [address] [place], [address] BUN/CRE 9.0 RATIO Low 10-20 [facility] Comment on above: Performed By: #### L 500.4050, L100.0100 ####[facility] [address] [place], [address] CA,Total 7.9 mg/dL Low 8.5-10.1 [facility] Comment on above: Performed By: #### L 500.4050, L100.0100 ####[facility] [address] [place], [address] Chloride [Moles/Vol] 102 mmol/L Normal 98-107 [facility] Comment on above: Performed By: #### L 500.4050, L100.0100 ####[facility] [address] [place], [address] CO2 [Moles/Vol] 23.0 mmol/L Normal 21.0-32.0 [facility] Comment on above: Performed By: #### L 500.4050, L100.0100 ####[facility] [address] [place], [address] Creatinine [Mass/Vol] 5.66 mg/dL High 0.70-1.30 [facility] Comment on above: Result Comment: The validity of the calculated GFR GFRAA in patients over70 years has not been determined. Clinical correlation isessential. Performed By: #### L 500.4050, L100.0100 ####[facility] [address] [place], [address] ECRCL 16.43 ml/min Normal [facility] Comment on above: Performed By: #### L 500.4050, L100.0100 ####[facility] [address] [place], [address] EST GFR - AA 14 mL/min Low >60 [facility] Comment on above: Result Comment: Afri can Polish GFR Calc Performed By: #### L 500.4050, L100.0100 ####[facility] [address] [place], [address] GAP 7 Normal 5-15 [facility] Comment on above: Performed By: #### L 500.4050, L100.0100 ####[facility] [address] [place], [address] GFR/1.73 sq M.predicted among non-blacks MDRD (S/P/Bld) [Vol rate/Area] 11 mL/min/{1.73_m2} Low >60 [facility] Comment on above: Result Comment: Non- GFR Calc Performed By: #### L 500.4050, L100.0100 ####[facility] [address] [place], [address] Globulin (S) [Mass/Vol] 3.1 g/dL Normal 2.2-4.2 [facility] Comment on above: Performed By: #### L 500.4050, L100.0100 ####[facility] [address] [place], [address] Glucose [Mass/Vol] 139 mg/dL High 74-106 [facility] Comment on above: Result Comment: Fast ing Glucose result greater than or equal to 126 mg/dLsuggests DIABETES MELLITUS per A.D.A. criteria. Performed By: #### L 500.4050, L100.0100 ####[facility] [address] [place], [address] Potassium [Moles/Vol] 4.3 mmol/L Normal 3.5-5.1 [facility] Comment on above: Performed By: #### L 500.4050, L100.0100 ####[facility] [address] [place], [address] Sodium [Moles/Vol] 132 mmol/L Low 136-145 [facility] Comment on above: Performed By: #### L 500.4050, L100.0100 ####[facility] [address] [place], [address] T PROT 5.3 g/dL Low 6.4-8.2 [facility] Comment on above: Performed By: #### L 500.4050, L100.0100 ####[facility] [address] [place], [address] Urea nitrogen [Mass/Vol] 51 mg/dL High 7-18 [facility] Comment on above: Performed By: #### L 500.4050, L100.0100 ####[facility] [address] [place], [address] Bedside Glucoseon 07-08-2024 FINGERSTICK GLU 137 mg/dL High 74-106 [facility] Comment on above: Result Comment: AAMIR GEMENT OF PATIENT CARE PER NURSING PROTOCOL Performed By: #### L 501.080 ####[facility] [address] [place], [address] FINGERSTICK GLU 144 mg/dL High 74-106 [facility] Comment on above: Result Comment: AAMIR GEMENT OF PATIENT CARE PER NURSING PROTOCOL Performed By: #### L 501.080 ####[facility] [address] [place], [address] FINGERSTICK GLU 161 mg/dL High -106 [facility] Comment on above: Result Comment: AAMIR GEMENT OF PATIENT CARE PER NURSING PROTOCOL Performed By: #### L 501.080 ####[facility] [address] [place], [address] FINGERSTICK GLU 136 mg/dL High -106 [facility] Comment on above: Result Comment: AAMIR GEMENT OF PATIENT CARE PER NURSING PROTOCOL Performed By: #### L 501.080 ####[facility] [address] [place], [address] CBC W/Diff, Automatedon 06-28 Absolute Lymph 1.15 X10 3/uL Normal 0.83-4.51 [facility] Comment on above: Performed By: #### L 100.0100, L500.4050 ####[facility] [address] [place], [address] Absolute Neut 2.7 X10 3/uL Normal 2.0-7.7 [facility] Comment on above: Performed By: #### L 100.0100, L500.4050 ####[facility] [address] [place], [address] Basophils/100 WBC (Bld) 0.7 % Normal 0-1 [facility] Comment on above: Performed By: #### L 100.0100, L500.4050 ####[facility] [address] [place], [address] Eosinophils/100 WBC (Bld) 1.9 % Normal 0-5 [facility] Comment on above: Performed By: #### L 100.0100, L500.4050 ####[facility] [address] [place], [address] Erythrocyte distribution width (RBC) [Ratio] 13.9 % Normal 11.6-14.6 [facility] Comment on above: Performed By: #### L 100.0100, L500.4050 ####[facility] [address] [place], [address] Hematocrit (Bld) [Volume fraction] 21.9 % Low 40-54 [facility] Comment on above: Performed By: #### L 100.0100, L500.4050 ####[facility] [address] [place], [address] Hemoglobin (Bld) [Mass/Vol] 7.3 g/dL Low 13.0-16.5 [facility] Comment on above: Performed By: #### L 100.0100, L500.4050 ####[facility] [address] [place], [address] IG% 0.700 Normal 0.0-0.9 [facility] Comment on above: Result Comment: IG% - Immature Granulocytes (promyelocytes, myelocytes andmetamyelocytes) > 1% indicates that a LEFT SHIFT is Present. Performed By: #### L 100.0100, L500.4050 ####[facility] [address] [place], [address] Lymphocytes/100 WBC (Bld) 26.7 % Normal 19-41 [facility] Comment on above: Performed By: #### L 100.0100, L500.4050 ####[facility] [address] [place], [address] MCH (RBC) [Entitic mass] 29.4 pg Normal 27.0-32.0 [facility] Comment on above: Performed By: #### L 100.0100, L500.4050 ####[facility] [address] [place], [address] MCHC (RBC) [Mass/Vol] 33.3 g/dL Normal 32-36 [facility] Comment on above: Performed By: #### L 100.0100, L500.4050 ####[facility] [address] [place], [address] MCV (RBC) [Entitic vol] 88.3 fL Normal 80-94 [facility] Comment on above: Performed By: #### L 100.0100, L500.4050 ####[facility] [address] [place], [address] Monocytes/100 WBC (Bld) 6.7 % Normal 0-10 [facility] Comment on above: Performed By: #### L 100.0100, L500.4050 ####[facility] [address] [place], [address] Neutrophils/100 WBC (Bld) 63.3 % Normal 47-70 [facility] Comment on above: Performed By: #### L 100.0100, L500.4050 ####[facility] [address] [place], [address] Nucleated RBC (Bld) [#/Vol] 0 10*3/uL Normal 0-5 [facility] Comment on above: Performed By: #### L 100.0100, L500.4050 ####[facility] [address] [place], [address] Platelet mean volume (Bld) [Entitic vol] 10.2 fL Normal 6.2-12.0 [facility] Comment on above: Performed By: #### L 100.0100, L500.4050 ####[facility] [address] [place], [address] Platelets (Bld) [#/Vol] 112 10*3/uL Low 150-450 [facility] Comment on above: Performed By: #### L 100.0100, L500.4050 ####[facility] [address] [place], [address] RBC (Bld) [#/Vol] 2.48 10*6/uL Low 4.6-6.2 [facility] Comment on above: Performed By: #### L 100.0100, L500.4050 ####[facility] [address] [place], [address] RDW SD 44.8 fl High 35.1-43.9 [facility] Comment on above: Performed By: #### L 100.0100, L500.4050 ####[facility] [address] [place], [address] WBC (Bld) [#/Vol] 4.3 10*3/uL Low 4.4-11.0 [facility] Comment on above: Performed By: #### L 100.0100, L500.4050 ####[facility] [address] [place], [address] CORTISOL SERUMon 07-08-2024 CORTISOL 28.60 ug/dL High 3.44-22.45 [facility] Comment on above: Order Comment: 60M Result Comment: Adul t (AM) 5.27 - 22.45 ug/dL Adult (PM) 3.44 - 16.76 ug/dL Performed By: #### L 509.6000 ####[facility] [address] [place], [address] CORTISOL 17.80 ug/dL Normal 3.44-22.45 [facility] Comment on above: Order Comment: B Result Comment: Adul t (AM) 5.27 - 22.45 ug/dL Adult (PM) 3.44 - 16.76 ug/dL Performed By: #### L 509.6000 ####[facility] [address] [place], [address] Comprehensive Metabolic Prof ilon 07-08-2024 Albumin [Mass/Vol] 2.2 g/dL Low 3.2-5.0 [facility] Comment on above: Performed By: #### L 100.0100, L500.4050 ####[facility] [address] [place], [address] Albumin/Globulin [Mass ratio] 0.7 {ratio} Low 0.9-2.4 [facility] Comment on above: Performed By: #### L 100.0100, L500.4050 ####[facility] [address] [place], [address] ALK P 45 U/L Normal 45-117 [facility] Comment on above: Performed By: #### L 100.0100, L500.4050 ####[facility] [address] [place], [address] ALT [Catalytic activity/Vol] U/L Low 16-61 [facility] Comment on above: Performed By: #### L 100.0100, L500.4050 ####[facility] [address] [place], [address] AST [Catalytic activity/Vol] 7 U/L Low 15-37 [facility] Comment on above: Performed By: #### L 100.0100, L500.4050 ####[facility] [address] [place], [address] Bilirubin [Mass/Vol] 0.30 mg/dL Normal 0.20-1.00 [facility] Comment on above: Result Comment: For patients on eltrombopag therapy, use of Dimension Buena TBIL is not recommended. Performed By: #### L 100.0100, L500.4050 ####[facility] [address] [place], [address] BUN/CRE 9.5 RATIO Low 10-20 [facility] Comment on above: Performed By: #### L 100.0100, L500.4050 ####[facility] [address] [place], [address] CA,Total 7.7 mg/dL Low 8.5-10.1 [facility] Comment on above: Performed By: #### L 100.0100, L500.4050 ####[facility] [address] [place], [address] Chloride [Moles/Vol] 103 mmol/L Normal 98-107 [facility] Comment on above: Performed By: #### L 100.0100, L500.4050 ####[facility] [address] [place], [address] CO2 [Moles/Vol] 20.0 mmol/L Low 21.0-32.0 [facility] Comment on above: Performed By: #### L 100.0100, L500.4050 ####[facility] [address] [place], [address] Creatinine [Mass/Vol] 7.30 mg/dL High 0.70-1.30 [facility] Comment on above: Result Comment: The validity of the calculated GFR GFRAA in patients over70 years has not been determined. Clinical correlation isessential. Performed By: #### L 100.0100, L500.4050 ####[facility] [address] [place], [address] ECRCL 12.69 ml/min Normal [facility] Comment on above: Performed By: #### L 100.0100, L500.4050 ####[facility] [address] [place], [address] EST GFR - AA 10 mL/min Low >60 [facility] Comment on above: Result Comment: Afri can Polish GFR Calc Performed By: #### L 100.0100, L500.4050 ####[facility] [address] [place], [address] GAP 9 Normal 5-15 [facility] Comment on above: Performed By: #### L 100.0100, L500.4050 ####[facility] [address] [place], [address] GFR/1.73 sq M.predicted among non-blacks MDRD (S/P/Bld) [Vol rate/Area] 8 mL/min/{1.73_m2} Low >60 [facility] Comment on above: Result Comment: Non- GFR Calc Performed By: #### L 100.0100, L500.4050 ####[facility] [address] [place], [address] Globulin (S) [Mass/Vol] 3.2 g/dL Normal 2.2-4.2 [facility] Comment on above: Performed By: #### L 100.0100, L500.4050 ####[facility] [address] [place], [address] Glucose [Mass/Vol] 172 mg/dL High 74-106 [facility] Comment on above: Result Comment: Fast ing Glucose result greater than or equal to 126 mg/dLsuggests DIABETES MELLITUS per A.D.A. criteria. Performed By: #### L 100.0100, L500.4050 ####[facility] [address] [place], [address] Potassium [Moles/Vol] 4.3 mmol/L Normal 3.5-5.1 [facility] Comment on above: Performed By: #### L 100.0100, L500.4050 ####[facility] [address] [place], [address] Sodium [Moles/Vol] 132 mmol/L Low 136-145 [facility] Comment on above: Performed By: #### L 100.0100, L500.4050 ####[facility] [address] [place], [address] T PROT 5.4 g/dL Low 6.4-8.2 [facility] Comment on above: Performed By: #### L 100.0100, L500.4050 ####[facility] [address] [place], [address] Urea nitrogen [Mass/Vol] 69 mg/dL High 7-18 [facility] Comment on above: Performed By: #### L 100.0100, L500.4050 ####[facility] [address] [place], [address] Phosphoruson 07-08-2024 Phosphate [Mass/Vol] 6.1 mg/dL High 2.5-4.9 [facility] Comment on above: Performed By: #### L 501.2300 ####[facility] [address] [place], [address] Bedside Glucoseon 07-07-2024 FINGERSTICK GLU 189 mg/dL High 74-106 [facility] Comment on above: Result Comment: AAMIR GEMENT OF PATIENT CARE PER NURSING PROTOCOL Performed By: #### L 501.080 ####[facility] [address] [place], [address] FINGERSTICK GLU 154 mg/dL High 74-106 [facility] Comment on above: Result Comment: AAMIR GEMENT OF PATIENT CARE PER NURSING PROTOCOL Performed By: #### L 501.080 ####[facility] [address] [place], [address] FINGERSTICK GLU 87 mg/dL Normal 74-106 [facility] Comment on above: Result Comment: AAMIR QUIROGA OF PATIENT CARE PER NURSING PROTOCOL Performed By: #### L 501.080 ####[facility] [address] [place], [address] CBC W/Diff, Automatedon 11-1 0-2024 Absolute Lymph 1.11 X10 3/uL Normal 0.83-4.51 [facility] Comment on above: Performed By: #### L 100.0100, L500.4100, L500.4050 ####[facility] [address] [place], [address] Absolute Neut 3.0 X10 3/uL Normal 2.0-7.7 [facility] Comment on above: Performed By: #### L 100.0100, L500.4100, L500.4050 ####[facility] [address] [place], [address] Basophils/100 WBC (Bld) 0.4 % Normal 0-1 [facility] Comment on above: Performed By: #### L 100.0100, L500.4100, L500.4050 ####[facility] [address] [place], [address] Eosinophils/100 WBC (Bld) 2.0 % Normal 0-5 [facility] Comment on above: Performed By: #### L 100.0100, L500.4100, L500.4050 ####[facility] [address] [place], [address] Erythrocyte distribution width (RBC) [Ratio] 14.0 % Normal 11.6-14.6 [facility] Comment on above: Performed By: #### L 100.0100, L500.4100, L500.4050 ####[facility] [address] [place], [address] Hematocrit (Bld) [Volume fraction] 22.6 % Low 40-54 [facility] Comment on above: Performed By: #### L 100.0100, L500.4100, L500.4050 ####[facility] [address] [place], [address] Hemoglobin (Bld) [Mass/Vol] 7.5 g/dL Low 13.0-16.5 [facility] Comment on above: Performed By: #### L 100.0100, L500.4100, L500.4050 ####[facility] [address] [place], [address] IG% 0.400 Normal 0.0-0.9 [facility] Comment on above: Result Comment: IG% - Immature Granulocytes (promyelocytes, myelocytes andmetamyelocytes) > 1% indicates that a LEFT SHIFT is Present. Performed By: #### L 100.0100, L500.4100, L500.4050 ####[facility] [address] [place], [address] Lymphocytes/100 WBC (Bld) 24.3 % Normal 19-41 [facility] Comment on above: Performed By: #### L 100.0100, L500.4100, L500.4050 ####[facility] [address] [place], [address] MCH (RBC) [Entitic mass] 29.3 pg Normal 27.0-32.0 [facility] Comment on above: Performed By: #### L 100.0100, L500.4100, L500.4050 ####[facility] [address] [place], [address] MCHC (RBC) [Mass/Vol] 33.2 g/dL Normal 32-36 [facility] Comment on above: Performed By: #### L 100.0100, L500.4100, L500.4050 ####[facility] [address] [place], [address] MCV (RBC) [Entitic vol] 88.3 fL Normal 80-94 [facility] Comment on above: Performed By: #### L 100.0100, L500.4100, L500.4050 ####[facility] [address] [place], [address] Monocytes/100 WBC (Bld) 6.8 % Normal 0-10 [facility] Comment on above: Performed By: #### L 100.0100, L500.4100, L500.4050 ####[facility] [address] [place], [address] Neutrophils/100 WBC (Bld) 66.1 % Normal 47-70 [facility] Comment on above: Performed By: #### L 100.0100, L500.4100, L500.4050 ####[facility] [address] [place], [address] Nucleated RBC (Bld) [#/Vol] 0 10*3/uL Normal 0-5 [facility] Comment on above: Performed By: #### L 100.0100, L500.4100, L500.4050 ####[facility] [address] [place], [address] Platelet mean volume (Bld) [Entitic vol] 10.1 fL Normal 6.2-12.0 [facility] Comment on above: Performed By: #### L 100.0100, L500.4100, L500.4050 ####[facility] [address] [place], [address] Platelets (Bld) [#/Vol] 120 10*3/uL Low 150-450 [facility] Comment on above: Performed By: #### L 100.0100, L500.4100, L500.4050 ####[facility] [address] [place], [address] RBC (Bld) [#/Vol] 2.56 10*6/uL Low 4.6-6.2 [facility] Comment on above: Performed By: #### L 100.0100, L500.4100, L500.4050 ####[facility] [address] [place], [address] RDW SD 45.5 fl High 35.1-43.9 [facility] Comment on above: Performed By: #### L 100.0100, L500.4100, L500.4050 ####[facility] [address] [place], [address] WBC (Bld) [#/Vol] 4.6 10*3/uL Normal 4.4-11.0 [facility] Comment on above: Performed By: #### L 100.0100, L500.4100, L500.4050 ####[facility] [address] [place], [address] Comprehensive Metabolic Prof [facility] 07-07-2024 Albumin [Mass/Vol] 2.2 g/dL Low 3.2-5.0 [facility] Comment on above: Order Comment: Comme nts: add to AM labs from today. Performed By: #### L 100.0100, L500.4100, L500.4050 ####[facility] [address] [place], [address] Albumin/Globulin [Mass ratio] 0.7 {ratio} Low 0.9-2.4 [facility] Comment on above: Order Comment: Comme nts: add to AM labs from today. Performed By: #### L 100.0100, L500.4100, L500.4050 ####[facility] [address] [place], [address] ALK P 45 U/L Normal 45-117 [facility] Comment on above: Order Comment: Comme nts: add to AM labs from today. Performed By: #### L 100.0100, L500.4100, L500.4050 ####[facility] [address] [place], [address] ALT [Catalytic activity/Vol] U/L Low 16-61 [facility] Comment on above: Order Comment: Comme nts: add to AM labs from today. Performed By: #### L 100.0100, L500.4100, L500.4050 ####[facility] [address] [place], [address] AST [Catalytic activity/Vol] 7 U/L Low 15-37 [facility] Comment on above: Order Comment: Comme nts: add to AM labs from today. Performed By: #### L 100.0100, L500.4100, L500.4050 ####[facility] [address] [place], [address] Bilirubin [Mass/Vol] 0.30 mg/dL Normal 0.20-1.00 [facility] Comment on above: Order Comment: Comme nts: add to AM labs from today. Result Comment: For patients on eltrombopag therapy, use of Dimension Buena TBIL is not recommended. Performed By: #### L 100.0100, L500.4100, L500.4050 ####[facility] [address] [place], [address] BUN/CRE 9.0 RATIO Low 10-20 [facility] Comment on above: Order Comment: Comme nts: add to AM labs from today. Performed By: #### L 100.0100, L500.4100, L500.4050 ####[facility] [address] [place], [address] CA,Total 7.8 mg/dL Low 8.5-10.1 [facility] Comment on above: Order Comment: Comme nts: add to AM labs from today. Performed By: #### L 100.0100, L500.4100, L500.4050 ####[facility] [address] [place], [address] Chloride [Moles/Vol] 106 mmol/L Normal 98-107 [facility] Comment on above: Order Comment: Comme nts: add to AM labs from today. Performed By: #### L 100.0100, L500.4100, L500.4050 ####[facility] [address] [place], [address] CO2 [Moles/Vol] 19.0 mmol/L Low 21.0-32.0 [facility] Comment on above: Order Comment: Comme nts: add to AM labs from today. Performed By: #### L 100.0100, L500.4100, L500.4050 ####[facility] [address] [place], [address] Creatinine [Mass/Vol] 6.69 mg/dL High 0.70-1.30 [facility] Comment on above: Order Comment: Comme nts: add to AM labs from today. Result Comment: The validity of the calculated GFR GFRAA in patients over70 years has not been determined. Clinical correlation isessential. Performed By: #### L 100.0100, L500.4100, L500.4050 ####[facility] [address] [place], [address] ECRCL 13.84 ml/min Normal [facility] Comment on above: Order Comment: Comme nts: add to AM labs from today. Performed By: #### L 100.0100, L500.4100, L500.4050 ####[facility] [address] [place], [address] EST GFR - AA 11 mL/min Low >60 [facility] Comment on above: Order Comment: Comme nts: add to AM labs from today. Result Comment: Afri can Polish GFR Calc Performed By: #### L 100.0100, L500.4100, L500.4050 ####[facility] [address] [place], [address] GAP 10 Normal 5-15 [facility] Comment on above: Order Comment: Comme nts: add to AM labs from today. Performed By: #### L 100.0100, L500.4100, L500.4050 ####[facility] [address] [place], [address] GFR/1.73 sq M.predicted among non-blacks MDRD (S/P/Bld) [Vol rate/Area] 9 mL/min/{1.73_m2} Low >60 [facility] Comment on above: Order Comment: Comme nts: add to AM labs from today. Result Comment: Non- GFR Calc Performed By: #### L 100.0100, L500.4100, L500.4050 ####[facility] [address] [place], [address] Globulin (S) [Mass/Vol] 3.2 g/dL Normal 2.2-4.2 [facility] Comment on above: Order Comment: Comme nts: add to AM labs from today. Performed By: #### L 100.0100, L500.4100, L500.4050 ####[facility] [address] [place], [address] Glucose [Mass/Vol] 92 mg/dL Normal 74-106 [facility] Comment on above: Order Comment: Comme nts: add to AM labs from today. Performed By: #### L 100.0100, L500.4100, L500.4050 ####[facility] [address] [place], [address] Potassium [Moles/Vol] 4.3 mmol/L Normal 3.5-5.1 [facility] Comment on above: Order Comment: Comme nts: add to AM labs from today. Performed By: #### L 100.0100, L500.4100, L500.4050 ####[facility] [address] [place], [address] Sodium [Moles/Vol] 135 mmol/L Low 136-145 [facility] Comment on above: Order Comment: Comme nts: add to AM labs from today. Performed By: #### L 100.0100, L500.4100, L500.4050 ####[facility] [address] [place], [address] T PROT 5.4 g/dL Low 6.4-8.2 [facility] Comment on above: Order Comment: Comme nts: add to AM labs from today. Performed By: #### L 100.0100, L500.4100, L500.4050 ####[facility] [address] [place], [address] Urea nitrogen [Mass/Vol] 60 mg/dL High 7-18 [facility] Comment on above: Order Comment: Comme nts: add to AM labs from today. Performed By: #### L 100.0100, L500.4100, L500.4050 ####[facility] [address] [place], [address] Lipid Profileon 07-07-2024 Cholesterol [Mass/Vol] 152 mg/dL Normal 200 [facility] Comment on above: Order Comment: Comme nts: add to AM labs from today. Result Comment: <200 mg/dL Desirable 200-240 mg/dL Borderline >240 mg/dL High Risk Performed By: #### L 100.0100, L500.4100, L500.4050 ####[facility] [address] [place], [address] Cholesterol in HDL [Mass/Vol] 34 mg/dL Low [facility] Comment on above: Order Comment: Comme nts: add to AM labs from today. Result Comment: The drugs N-Acetylcysteine and Metamizole may falselydepress this assay. Reference Range HDL <40 mg/dL Low HDL Cholesterol HDL >or= 60 mg/dL High HDL Cholesterol Performed By: #### L 100.0100, L500.4100, L500.4050 ####[facility] [address] [place], [address] Cholesterol in LDL [Mass/Vol] 69 mg/dL Normal 0-130 [facility] Comment on above: Order Comment: Comme nts: add to AM labs from today. Performed By: #### L 100.0100, L500.4100, L500.4050 ####[facility] [address] [place], [address] Cholesterol in VLDL [Mass/Vol] 49 mg/dL High 5-40 [facility] Comment on above: Order Comment: Comme nts: add to AM labs from today. Performed By: #### L 100.0100, L500.4100, L500.4050 ####[facility] [address] [place], [address] Triglyceride [Mass/Vol] 244 mg/dL High [facility] Comment on above: Order Comment: Comme nts: add to AM labs from today. Result Comment: The drugs N-Acetylcysteine and Metamizole may falselydepress this assay.Serum Triglycerides Reference Interval Normal <150 mg/dL Borderline high 150 - 199 mg/dL High 200 - 499 mg/dL Very High > or = 500 mg/dL Performed By: #### L 100.0100, L500.4100, L500.4050 ####[facility] [address] [place], [address] Bedside Glucoseon 07-06-2024 FINGERSTICK GLU 171 mg/dL High 74-106 [facility] Comment on above: Result Comment: AAMIR QUIROGA OF PATIENT CARE PER NURSING PROTOCOL Performed By: #### L 501.080 ####[facility] [address] [place], [address] FINGERSTICK GLU 110 mg/dL High [address] [place] [address] Comment on above: Result Comment: AAMIR GEMENT OF PATIENT CARE PER NURSING PROTOCOL Performed By: #### L 501.080 ####[facility] [address] [place], [address] FINGERSTICK GLU 182 mg/dL High [address] [place] [address] Comment on above: Result Comment: AAMIR GEMENT OF PATIENT CARE PER NURSING PROTOCOL Performed By: #### L 501.080 ####[facility] [address] [place], [address] FINGERSTICK GLU 218 mg/dL High [address] [place] [address] Comment on above: Result Comment: Dr Maame quiroz FollowedMANAGEMENT OF PATIENT CARE PER NURSING PROTOCOL Performed By: #### L 501.080 ####[facility] [address] [place], [address] FINGERSTICK GLU 126 mg/dL High [address] [place] [address] Comment on above: Result Comment: AAMIR GEMENT OF PATIENT CARE PER NURSING PROTOCOL Performed By: #### L 501.080 ####[facility] [address] [place], [address] Brain without Contraston Brain without Contrast Normal [facility] CBC W/Diff, Automatedon 11-0 Absolute Lymph 1.02 X10 3/uL Normal 0.83-4.51 [facility] Comment on above: Performed By: #### L 100.0100, L500.4050 ####[facility] [address] [place], [address] Absolute Neut 3.7 X10 3/uL Normal 2.0-7.7 [facility] Comment on above: Performed By: #### L 100.0100, L500.4050 ####[facility] [address] [place], [address] Basophils/100 WBC (Bld) 0.2 % Normal 0-1 [facility] Comment on above: Performed By: #### L 100.0100, L500.4050 ####[facility] [address] [place], [address] Eosinophils/100 WBC (Bld) 1.6 % Normal 0-5 [facility] Comment on above: Performed By: #### L 100.0100, L500.4050 ####[facility] [address] [place], [address] Erythrocyte distribution width (RBC) [Ratio] 14.4 % Normal 11.6-14.6 [facility] Comment on above: Performed By: #### L 100.0100, L500.4050 ####[facility] [address] [place], [address] Hematocrit (Bld) [Volume fraction] 24.1 % Low 40-54 [facility] Comment on above: Performed By: #### L 100.0100, L500.4050 ####[facility] [address] [place], [address] Hemoglobin (Bld) [Mass/Vol] 7.9 g/dL Low 13.0-16.5 [facility] Comment on above: Performed By: #### L 100.0100, L500.4050 ####[facility] [address] [place], [address] IG% 0.400 Normal 0.0-0.9 [facility] Comment on above: Result Comment: IG% - Immature Granulocytes (promyelocytes, myelocytes andmetamyelocytes) > 1% indicates that a LEFT SHIFT is Present. Performed By: #### L 100.0100, L500.4050 ####[facility] [address] [place], [address] Lymphocytes/100 WBC (Bld) 19.8 % Normal 19-41 [facility] Comment on above: Performed By: #### L 100.0100, L500.4050 ####[facility] [address] [place], [address] MCH (RBC) [Entitic mass] 29.3 pg Normal 27.0-32.0 [facility] Comment on above: Performed By: #### L 100.0100, L500.4050 ####[facility] [address] [place], [address] MCHC (RBC) [Mass/Vol] 32.8 g/dL Normal 32-36 [facility] Comment on above: Performed By: #### L 100.0100, L500.4050 ####[facility] [address] [place], [address] MCV (RBC) [Entitic vol] 89.3 fL Normal 80-94 [facility] Comment on above: Performed By: #### L 100.0100, L500.4050 ####[facility] [address] [place], [address] Monocytes/100 WBC (Bld) 5.6 % Normal 0-10 [facility] Comment on above: Performed By: #### L 100.0100, L500.4050 ####[facility] [address] [place], [address] Neutrophils/100 WBC (Bld) 72.4 % High 47-70 [facility] Comment on above: Performed By: #### L 100.0100, L500.4050 ####[facility] [address] [place], [address] Nucleated RBC (Bld) [#/Vol] 0 10*3/uL Normal 0-5 [facility] Comment on above: Performed By: #### L 100.0100, L500.4050 ####[facility] [address] [place], [address] Platelet mean volume (Bld) [Entitic vol] 10.5 fL Normal 6.2-12.0 [facility] Comment on above: Performed By: #### L 100.0100, L500.4050 ####[facility] [address] [place], [address] Platelets (Bld) [#/Vol] 150 10*3/uL Normal 150-450 [facility] Comment on above: Performed By: #### L 100.0100, L500.4050 ####[facility] [address] [place], [address] RBC (Bld) [#/Vol] 2.70 10*6/uL Low 4.6-6.2 [facility] Comment on above: Performed By: #### L 100.0100, L500.4050 ####[facility] [address] [place], [address] RDW SD 46.5 fl High 35.1-43.9 [facility] Comment on above: Performed By: #### L 100.0100, L500.4050 ####[facility] [address] [place], [address] WBC (Bld) [#/Vol] 5.2 10*3/uL Normal 4.4-11.0 [facility] Comment on above: Performed By: #### L 100.0100, L500.4050 ####[facility] [address] [place], [address] Comprehensive Metabolic Prof ilon 07-06-2024 Albumin [Mass/Vol] 2.4 g/dL Low 3.2-5.0 [facility] Comment on above: Performed By: #### L 100.0100, L500.4050 ####[facility] [address] [place], [address] Albumin/Globulin [Mass ratio] 0.8 {ratio} Low 0.9-2.4 [facility] Comment on above: Performed By: #### L 100.0100, L500.4050 ####[facility] [address] [place], [address] ALK P 45 U/L Normal 45-117 [facility] Comment on above: Performed By: #### L 100.0100, L500.4050 ####[facility] [address] [place], [address] ALT [Catalytic activity/Vol] 8 U/L Low 16-61 [facility] Comment on above: Performed By: #### L 100.0100, L500.4050 ####[facility] [address] [place], [address] AST [Catalytic activity/Vol] 3 U/L Low 15-37 [facility] Comment on above: Performed By: #### L 100.0100, L500.4050 ####[facility] [address] [place], [address] Bilirubin [Mass/Vol] 0.30 mg/dL Normal 0.20-1.00 [facility] Comment on above: Result Comment: For patients on eltrombopag therapy, use of Dimension Buena TBIL is not recommended. Performed By: #### L 100.0100, L500.4050 ####[facility] [address] [place], [address] BUN/CRE 9.4 RATIO Low 10-20 [facility] Comment on above: Performed By: #### L 100.0100, L500.4050 ####[facility] [address] [place], [address] CA,Total 8.0 mg/dL Low 8.5-10.1 [facility] Comment on above: Performed By: #### L 100.0100, L500.4050 ####[facility] [address] [place], [address] Chloride [Moles/Vol] 110 mmol/L High 98-107 [facility] Comment on above: Performed By: #### L 100.0100, L500.4050 ####[facility] [address] [place], [address] CO2 [Moles/Vol] 17.0 mmol/L Low 21.0-32.0 [facility] Comment on above: Performed By: #### L 100.0100, L500.4050 ####[facility] [address] [place], [address] Creatinine [Mass/Vol] 8.16 mg/dL Invalid Interpretation Code 0.70-1.30 [facility] Comment on above: Result Comment: Crit ical Result(s) Called at: 07:46:29 07/06/2024 by:Juana Alcazar to [facility]. Results read back by same.The validity of the calculated GFR GFRAA in patients over70 years has not been determined. Clinical correlation isessential. Performed By: #### L 100.0100, L500.4050 ####[facility] [address] [place], [address] ECRCL 11.38 ml/min Normal [facility] Comment on above: Performed By: #### L 100.0100, L500.4050 ####[facility] [address] [place], [address] EST GFR - AA 9 mL/min Low >60 [facility] Comment on above: Result Comment: Afri can Polish GFR Calc Performed By: #### L 100.0100, L500.4050 ####[facility] [address] [place], [address] GAP 8 Normal 5-15 [facility] Comment on above: Performed By: #### L 100.0100, L500.4050 ####[facility] [address] [place], [address] GFR/1.73 sq M.predicted among non-blacks MDRD (S/P/Bld) [Vol rate/Area] 7 mL/min/{1.73_m2} Low >60 [facility] Comment on above: Result Comment: Non- GFR Calc Performed By: #### L 100.0100, L500.4050 ####[facility] [address] [place], [address] Globulin (S) [Mass/Vol] 3.0 g/dL Normal 2.2-4.2 [facility] Comment on above: Performed By: #### L 100.0100, L500.4050 ####[facility] [address] [place], [address] Glucose [Mass/Vol] 127 mg/dL High 74-106 [facility] Comment on above: Result Comment: Fast ing Glucose result greater than or equal to 126 mg/dLsuggests DIABETES MELLITUS per A.D.A. criteria. Performed By: #### L 100.0100, L500.4050 ####[facility] [address] [place], [address] Potassium [Moles/Vol] 4.6 mmol/L Normal 3.5-5.1 [facility] Comment on above: Performed By: #### L 100.0100, L500.4050 ####[facility] [address] [place], [address] Sodium [Moles/Vol] 135 mmol/L Low 136-145 [facility] Comment on above: Performed By: #### L 100.0100, L500.4050 ####[facility] [address] [place], [address] T PROT 5.4 g/dL Low 6.4-8.2 [facility] Comment on above: Performed By: #### L 100.0100, L500.4050 ####[facility] [address] [place], [address] Urea nitrogen [Mass/Vol] 77 mg/dL High 7-18 [facility] Comment on above: Performed By: #### L 100.0100, L500.4050 ####[facility] [address] [place], [address] Echo Complete W/ Contraston 07-06-2024 Echo Complete W/ Contrast Normal [facility] Hemoglobin A1con 07-06-2024 HbA1c (Bld) [Mass fraction] 6.4 % High 3.8-5.6 [facility] Comment on above: Order Comment: Comme nts: add to am labs Result Comment: Norm al < 5.7 % Prediabetic 5.7 - 6.4 % Diabetic >or= 6.5 % Please note range changes. Performed By: #### L 501.9985, L501.9520 ####[facility] [address] [place], [place], [address] MR/CON.PCM.NEon 07-06-2024 MR/CON.PCM.NE Normal [facility] STROKE Brain/Head without Co nton 07-06-2024 STROKE Brain/Head without Cont Normal [facility] STROKE CTA Head AND Neck W/C onon 07-06-2024 STROKE CTA Head AND Neck W/Con Normal [facility] T4 Free Directon 07-06-2024 T4 FREE DIRECT 0.61 ng/dL Low 0.76-1.46 [facility] Comment on above: Order Comment: add t o am labs from earlier Performed By: #### L 506.0400 ####[facility] [address] [place], [place], [address] Thyroid Stim Hormone (TSH)on 07-06-2024 TSH 0.294 uIU/mL Low 0.358-3.740 [facility] Comment on above: Order Comment: Comme nts: add to am labs Performed By: #### L 501.9985, L501.9520 ####[facility] [address] [place], [address] Bedside Glucoseon 07-05-2024 FINGERSTICK GLU 185 mg/dL High 74-106 [facility] Comment on above: Result Comment: AAMIR GEMENT OF PATIENT CARE PER NURSING PROTOCOL Performed By: #### L 501.080 ####[facility] [address] [place], [address] FINGERSTICK GLU 130 mg/dL High -106 [facility] Comment on above: Result Comment: AAMIR GEMENT OF PATIENT CARE PER NURSING PROTOCOL Performed By: #### L 501.080 ####[facility] [address] [place], [address] FINGERSTICK GLU 174 mg/dL High 74-106 [facility] Comment on above: Result Comment: AAMIR GEMENT OF PATIENT CARE PER NURSING PROTOCOL Performed By: #### L 501.080 ####[facility] [address] [place], [address] FINGERSTICK GLU 129 mg/dL High -106 [facility] Comment on above: Result Comment: AAMIR GEMENT OF PATIENT CARE PER NURSING PROTOCOL Performed By: #### L 501.080 ####[facility] [address] [place], [address] FINGERSTICK GLU 132 mg/dL High 74-106 [facility] Comment on above: Result Comment: AAMIR GEMENT OF PATIENT CARE PER NURSING PROTOCOL Performed By: #### L 501.080 ####[facility] [address] [place], [address] FINGERSTICK GLU 136 mg/dL High 74-106 [facility] Comment on above: Result Comment: AAMIR GEMENT OF PATIENT CARE PER NURSING PROTOCOL Performed By: #### L 501.080 ####[facility] [address] [place], [address] CBC W/Diff, Automatedon 11-0 8-4 Absolute Lymph 1.36 X10 3/uL Normal 0.83-4.51 [facility] Comment on above: Performed By: #### L 500.4050, L100.0100 ####[facility] [address] [place], [address] Absolute Neut 5.1 X10 3/uL Normal 2.0-7.7 [facility] Comment on above: Performed By: #### L 500.4050, L100.0100 ####[facility] [address] [place], [address] Basophils/100 WBC (Bld) 0.4 % Normal 0-1 [facility] Comment on above: Performed By: #### L 500.4050, L100.0100 ####[facility] [address] [place], [address] Eosinophils/100 WBC (Bld) 1.7 % Normal 0-5 [facility] Comment on above: Performed By: #### L 500.4050, L100.0100 ####[facility] [address] [place], [address] Erythrocyte distribution width (RBC) [Ratio] 14.3 % Normal 11.6-14.6 [facility] Comment on above: Performed By: #### L 500.4050, L100.0100 ####[facility] [address] [place], [address] Hematocrit (Bld) [Volume fraction] 24.2 % Low 40-54 [facility] Comment on above: Performed By: #### L 500.4050, L100.0100 ####[facility] [address] [place], [address] Hemoglobin (Bld) [Mass/Vol] 8.1 g/dL Low 13.0-16.5 [facility] Comment on above: Performed By: #### L 500.4050, L100.0100 ####[facility] [address] [place], [address] IG% 0.700 Normal 0.0-0.9 [facility] Comment on above: Result Comment: IG% - Immature Granulocytes (promyelocytes, myelocytes andmetamyelocytes) > 1% indicates that a LEFT SHIFT is Present. Performed By: #### L 500.4050, L100.0100 ####[facility] [address] [place], [address] Lymphocytes/100 WBC (Bld) 19.0 % Normal 19-41 [facility] Comment on above: Performed By: #### L 500.4050, L100.0100 ####[facility] [address] [place], [address] MCH (RBC) [Entitic mass] 29.6 pg Normal 27.0-32.0 [facility] Comment on above: Performed By: #### L 500.4050, L100.0100 ####[facility] [address] [place], [address] MCHC (RBC) [Mass/Vol] 33.5 g/dL Normal 32-36 [facility] Comment on above: Performed By: #### L 500.4050, L100.0100 ####[facility] [address] [place], [address] MCV (RBC) [Entitic vol] 88.3 fL Normal 80-94 [facility] Comment on above: Performed By: #### L 500.4050, L100.0100 ####[facility] [address] [place], [address] Monocytes/100 WBC (Bld) 6.8 % Normal 0-10 [facility] Comment on above: Performed By: #### L 500.4050, L100.0100 ####[facility] [address] [place], [address] Neutrophils/100 WBC (Bld) 71.4 % High 47-70 [facility] Comment on above: Performed By: #### L 500.4050, L100.0100 ####[facility] [address] [place], [address] Nucleated RBC (Bld) [#/Vol] 0 10*3/uL Normal 0-5 [facility] Comment on above: Performed By: #### L 500.4050, L100.0100 ####[facility] [address] [place], [address] Platelet mean volume (Bld) [Entitic vol] 10.2 fL Normal 6.2-12.0 [facility] Comment on above: Performed By: #### L 500.4050, L100.0100 ####[facility] [address] [place], [address] Platelets (Bld) [#/Vol] 170 10*3/uL Normal 150-450 [facility] Comment on above: Performed By: #### L 500.4050, L100.0100 ####[facility] [address] [place], [address] RBC (Bld) [#/Vol] 2.74 10*6/uL Low 4.6-6.2 [facility] Comment on above: Performed By: #### L 500.4050, L100.0100 ####[facility] [address] [place], [address] RDW SD 46.1 fl High 35.1-43.9 [facility] Comment on above: Performed By: #### L 500.4050, L100.0100 ####[facility] [address] [place], [address] WBC (Bld) [#/Vol] 7.2 10*3/uL Normal 4.4-11.0 [facility] Comment on above: Performed By: #### L 500.4050, L100.0100 ####[facility] [address] [place], [address] CXR for Line Placementon CXR for Line Placement Normal [facility] Comprehensive Metabolic Prof ilon 07-05-2024 Albumin [Mass/Vol] 2.5 g/dL Low 3.2-5.0 [facility] Comment on above: Performed By: #### L 500.4050, L100.0100 ####[facility] [address] [place], [address] Albumin/Globulin [Mass ratio] 0.8 {ratio} Low 0.9-2.4 [facility] Comment on above: Performed By: #### L 500.4050, L100.0100 ####[facility] [address] [place], [address] ALK P 48 U/L Normal 45-117 [facility] Comment on above: Performed By: #### L 500.4050, L100.0100 ####[facility] [address] [place], [address] ALT [Catalytic activity/Vol] 11 U/L Low 16-61 [facility] Comment on above: Performed By: #### L 500.4050, L100.0100 ####[facility] [address] [place], [address] AST [Catalytic activity/Vol] 5 U/L Low 15-37 [facility] Comment on above: Performed By: #### L 500.4050, L100.0100 ####[facility] [address] [place], [address] Bilirubin [Mass/Vol] 0.30 mg/dL Normal 0.20-1.00 [facility] Comment on above: Result Comment: For patients on eltrombopag therapy, use of Dimension [place] TBIL is not recommended. Performed By: #### L 500.4050, L100.0100 ####[facility] [address] [place], [address] BUN/CRE 9.9 RATIO Low 10-20 [facility] Comment on above: Performed By: #### L 500.4050, L100.0100 ####[facility] [address] [place], [address] CA,Total 8.0 mg/dL Low 8.5-10.1 [facility] Comment on above: Performed By: #### L 500.4050, L100.0100 ####[facility] [address] [place], [address] Chloride [Moles/Vol] 109 mmol/L High 98-107 [facility] Comment on above: Performed By: #### L 500.4050, L100.0100 ####[facility] [address] [place], [address] CO2 [Moles/Vol] 15.0 mmol/L Low 21.0-32.0 [facility] Comment on above: Performed By: #### L 500.4050, L100.0100 ####[facility] [address] [place], [address] Creatinine [Mass/Vol] 9.10 mg/dL Invalid Interpretation Code 0.70-1.30 [facility] Comment on above: Result Comment: Crit ical Result(s) Called at: 08:57:24 07/05/2024 by: rKisten to Jessica Garcia. Results read back by same.The validity of the calculated GFR GFRAA in patients over70 years has not been determined. Clinical correlation isessential. Performed By: #### L 500.4050, L100.0100 ####[facility] [address] [place], [address] ECRCL 10.12 ml/min Normal [facility] Comment on above: Performed By: #### L 500.4050, L100.0100 ####[facility] [address] [place], [address] EST GFR - AA 8 mL/min Low >60 [facility] Comment on above: Result Comment: Afri can Polish GFR Calc Performed By: #### L 500.4050, L100.0100 ####[facility] [address] [place], [address] GAP 10 Normal 5-15 [facility] Comment on above: Performed By: #### L 500.4050, L100.0100 ####[facility] [address] [place], [address] GFR/1.73 sq M.predicted among non-blacks MDRD (S/P/Bld) [Vol rate/Area] 6 mL/min/{1.73_m2} Low >60 [facility] Comment on above: Result Comment: Non- GFR Calc Performed By: #### L 500.4050, L100.0100 ####[facility] [address] [place], [address] Globulin (S) [Mass/Vol] 3.3 g/dL Normal 2.2-4.2 [facility] Comment on above: Performed By: #### L 500.4050, L100.0100 ####[facility] [address] [place], [address] Glucose [Mass/Vol] 134 mg/dL High 74-106 [facility] Comment on above: Result Comment: Fast ing Glucose result greater than or equal to 126 mg/dLsuggests DIABETES MELLITUS per A.D.A. criteria. Performed By: #### L 500.4050, L100.0100 ####[facility] [address] [place], [address] Potassium [Moles/Vol] 5.4 mmol/L High 3.5-5.1 [facility] Comment on above: Performed By: #### L 500.4050, L100.0100 ####[facility] [address] [place], [address] Sodium [Moles/Vol] 133 mmol/L Low 136-145 [facility] Comment on above: Performed By: #### L 500.4050, L100.0100 ####[facility] [address] [place], [address] T PROT 5.8 g/dL Low 6.4-8.2 [facility] Comment on above: Performed By: #### L 500.4050, L100.0100 ####[facility] [address] [place], [address] Urea nitrogen [Mass/Vol] 90 mg/dL High 7-18 [facility] Comment on above: Performed By: #### L 500.4050, L100.0100 ####[facility] [address] [place], [address] Hepatitis B Surface Antigeno n 07-05-2024 HEP B Surf Ag Non-Reactive Normal Nonreactive [facility] Comment on above: Order Comment: Reaso n for Exam: outpatient dialysis Performed By: #### L 3890.6100 ####[facility] [address] [place], [address] MR/POSTOP.ANEon 07-05-2024 MR/POSTOP.ANE Normal [facility] Operative Reporton Operative Report Normal [facility] 12 Lead EKGon 07-04-2024 12 Lead EKG Normal [facility] Basic Metabolic Profile (BMP )on 07-04-2024 BUN/CRE 9.8 RATIO Low 10-20 [facility] Comment on above: Performed By: #### L 500.2500, L300.3900, L501.5200, L501.2300 ####[facility] [address] [place], [address] CA,Total 8.0 mg/dL Low 8.5-10.1 [facility] Comment on above: Performed By: #### L 500.2500, L300.3900, L501.5200, L501.2300 ####[facility] [address] [place], [address] Chloride [Moles/Vol] 106 mmol/L Normal 98-107 [facility] Comment on above: Performed By: #### L 500.2500, L300.3900, L501.5200, L501.2300 ####[facility] [address] [place], [address] CO2 [Moles/Vol] 14.0 mmol/L Low 21.0-32.0 [facility] Comment on above: Performed By: #### L 500.2500, L300.3900, L501.5200, L501.2300 ####[facility] [address] [place], [address] Creatinine [Mass/Vol] 8.77 mg/dL Invalid Interpretation Code 0.70-1.30 [facility] Comment on above: Result Comment: Crit ical Result(s) Called at: 07:14:43 07/04/2024 by:Juana Alcazar to Alicia Shields. Results read back bysame.The validity of the calculated GFR GFRAA in patients over70 years has not been determined. Clinical correlation isessential. Performed By: #### L 500.2500, L300.3900, L501.5200, L501.2300 ####[facility] [address] [place], [address] ECRCL 10.49 ml/min Normal [facility] Comment on above: Performed By: #### L 500.2500, L300.3900, L501.5200, L501.2300 ####[facility] [address] [place], [address] EST GFR - AA 8 mL/min Low >60 [facility] Comment on above: Result Comment: Afri can Polish GFR Calc Performed By: #### L 500.2500, L300.3900, L501.5200, L501.2300 ####[facility] [address] [place], [address] GAP 11 Normal 5-15 [facility] Comment on above: Performed By: #### L 500.2500, L300.3900, L501.5200, L501.2300 ####[facility] [address] [place], [address] GFR/1.73 sq M.predicted among non-blacks MDRD (S/P/Bld) [Vol rate/Area] 7 mL/min/{1.73_m2} Low >60 [facility] Comment on above: Result Comment: Non- GFR Calc Performed By: #### L 500.2500, L300.3900, L501.5200, L501.2300 ####[facility] [address] [place], [address] Glucose [Mass/Vol] 138 mg/dL High 74-106 [facility] Comment on above: Result Comment: Fast ing Glucose result greater than or equal to 126 mg/dLsuggests DIABETES MELLITUS per A.D.A. criteria. Performed By: #### L 500.2500, L300.3900, L501.5200, L501.2300 ####[facility] [address] [place], [address] Potassium [Moles/Vol] 5.0 mmol/L Normal 3.5-5.1 [facility] Comment on above: Performed By: #### L 500.2500, L300.3900, L501.5200, L501.2300 ####[facility] [address] [place], [address] Sodium [Moles/Vol] 132 mmol/L Low 136-145 [facility] Comment on above: Performed By: #### L 500.2500, L300.3900, L501.5200, L501.2300 ####[facility] [address] [place], [address] Urea nitrogen [Mass/Vol] 86 mg/dL High 7-18 [facility] Comment on above: Performed By: #### L 500.2500, L300.3900, L501.5200, L501.2300 ####[facility] [address] [place], [address] Bedside Glucoseon 07-04-2024 FINGERSTICK GLU 193 mg/dL High 74-106 [facility] Comment on above: Result Comment: AAMIR GEMENT OF PATIENT CARE PER NURSING PROTOCOL Performed By: #### L 501.080 ####[facility] [address] [place], [address] FINGERSTICK GLU 214 mg/dL High 74-106 [facility] Comment on above: Result Comment: AAMIR GEMENT OF PATIENT CARE PER NURSING PROTOCOL Performed By: #### L 501.080 ####[facility] [address] [place], [address] FINGERSTICK GLU 126 mg/dL High 74-106 [facility] Comment on above: Result Comment: AAMIR GEMENT OF PATIENT CARE PER NURSING PROTOCOL Performed By: #### L 501.080 ####[facility] [address] [place], [address] FINGERSTICK GLU 124 mg/dL High 74-106 [facility] Comment on above: Result Comment: AAMIR GEMENT OF PATIENT CARE PER NURSING PROTOCOL Performed By: #### L 501.080 ####[facility] [address] [place], [address] CBC-Complete Blood Cnt No Di ffon 07-04-2024 Erythrocyte distribution width (RBC) [Ratio] 14.3 % Normal 11.6-14.6 [facility] Comment on above: Performed By: #### L 100.0500 ####[facility] [address] [place], [address] Hematocrit (Bld) [Volume fraction] 26.8 % Low 40-54 [facility] Comment on above: Performed By: #### L 100.0500 ####[facility] [address] [place], [address] Hemoglobin (Bld) [Mass/Vol] 8.9 g/dL Low 13.0-16.5 [facility] Comment on above: Performed By: #### L 100.0500 ####[facility] [address] [place], [address] MCH (RBC) [Entitic mass] 29.9 pg Normal 27.0-32.0 [facility] Comment on above: Performed By: #### L 100.0500 ####[facility] [address] [place], [address] MCHC (RBC) [Mass/Vol] 33.2 g/dL Normal 32-36 [facility] Comment on above: Performed By: #### L 100.0500 ####[facility] [address] [place], [address] MCV (RBC) [Entitic vol] 89.9 fL Normal 80-94 [facility] Comment on above: Performed By: #### L 100.0500 ####[facility] [address] [place], [address] Platelet mean volume (Bld) [Entitic vol] 10.3 fL Normal 6.2-12.0 [facility] Comment on above: Performed By: #### L 100.0500 ####[facility] [address] [place], [address] Platelets (Bld) [#/Vol] 219 10*3/uL Normal 150-450 [facility] Comment on above: Performed By: #### L 100.0500 ####[facility] [address] [place], [address] RBC (Bld) [#/Vol] 2.98 10*6/uL Low 4.6-6.2 [facility] Comment on above: Performed By: #### L 100.0500 ####[facility] [address] [place], [address] RDW SD 46.7 fl High 35.1-43.9 [facility] Comment on above: Performed By: #### L 100.0500 ####[facility] [address] [place], [address] WBC (Bld) [#/Vol] 9.6 10*3/uL Normal 4.4-11.0 [facility] Comment on above: Performed By: #### L 100.0500 ####[facility] [address] [place], [address] Consultation - Nephrologyon 07-04-2024 Consultation - Nephrology Normal [facility] Consultation - Surgicalon Consultation - Surgical Normal [facility] Magnesiumon 07-04-2024 Magnesium [Mass/Vol] 2.1 mg/dL Normal 1.6-2.6 [facility] Comment on above: Performed By: #### L 500.2500, L300.3900, L501.5200, L501.2300 ####[facility] [address] [place], [address] Phosphoruson 07-04-2024 Phosphate [Mass/Vol] 8.1 mg/dL High 2.5-4.9 [facility] Comment on above: Performed By: #### L 500.2500, L300.3900, L501.5200, L501.2300 ####[facility] [address] [place], [address] Prothrombin Time w/INRon INR Coag (PPP) [Relative time] 1.2 {INR} Normal [facility] Comment on above: Performed By: #### L 500.2500, L300.3900, L501.5200, L501.2300 ####[facility] [address] [place], [address] PT Coag (PPP) [Time] 15.4 s High 11.7-14.9 [facility] Comment on above: Performed By: #### L 500.2500, L300.3900, L501.5200, L501.2300 ####[facility] [address] [place], [address] Basic Metabolic Profile (BMP )on 07-03-2024 BUN Normal 7-18 [facility] Comment on above: Result Comment: CMP ALREADY DONE THIS MORNING- OVERLAPPING Performed By: #### L 500.2500 ####[facility] [address] [place], [address] BUN/CRE Normal 10-20 [facility] Comment on above: Result Comment: CMP ALREADY DONE THIS MORNING- OVERLAPPING Performed By: #### L 500.2500 ####[facility] [address] [place], [address] CA,Total Normal 8.5-10.1 [facility] Comment on above: Result Comment: CMP ALREADY DONE THIS MORNING- OVERLAPPING Performed By: #### L 500.2500 ####[facility] [address] [place], [address] CL Normal 98-107 [facility] Comment on above: Result Comment: CMP ALREADY DONE THIS MORNING- OVERLAPPING Performed By: #### L 500.2500 ####[facility] [address] [place], [address] CO2 Normal 21.0-32.0 [facility] Comment on above: Result Comment: CMP ALREADY DONE THIS MORNING- OVERLAPPING Performed By: #### L 500.2500 ####[facility] [address] [place], [address] CREAT,SERUM Normal 0.70-1.30 [facility] Comment on above: Result Comment: CMP ALREADY DONE THIS MORNING- OVERLAPPING Performed By: #### L 500.2500 ####[facility] [address] [place], [address] EST GFR Normal >60 [facility] Comment on above: Result Comment: CMP ALREADY DONE THIS MORNING- OVERLAPPING Performed By: #### L 500.2500 ####[facility] [address] [place], [address] EST GFR - AA Normal >60 [facility] Comment on above: Result Comment: CMP ALREADY DONE THIS MORNING- OVERLAPPING Performed By: #### L 500.2500 ####[facility] [address] [place], [address] GAP Normal 5-15 [facility] Comment on above: Result Comment: CMP ALREADY DONE THIS MORNING- OVERLAPPING Performed By: #### L 500.2500 ####[facility] [address] [place], [address] GLU Normal 74-106 [facility] Comment on above: Result Comment: CMP ALREADY DONE THIS MORNING- OVERLAPPING Performed By: #### L 500.2500 ####[facility] [address] [place], [address] Potassium Normal 3.5-5.1 [facility] Comment on above: Result Comment: CMP ALREADY DONE THIS MORNING- OVERLAPPING Performed By: #### L 500.2500 ####[facility] [address] [place], [address] Basic Metabolic Profile (BMP) Normal 136-145 [facility] Comment on above: Result Comment: CMP ALREADY DONE THIS MORNING- OVERLAPPING Performed By: #### L 500.2500 ####[facility] [address] [place], [address] Bedside Glucoseon 07-03-2024 FINGERSTICK GLU 137 mg/dL High 74-106 [facility] Comment on above: Result Comment: AAMIR GEMENT OF PATIENT CARE PER NURSING PROTOCOL Performed By: #### L 501.080 ####[facility] [address] [place], [address] FINGERSTICK GLU 133 mg/dL High 74-106 [facility] Comment on above: Result Comment: AAMIR GEMENT OF PATIENT CARE PER NURSING PROTOCOL Performed By: #### L 501.080 ####[facility] [address] [place], [address] FINGERSTICK GLU 115 mg/dL High 74-106 [facility] Comment on above: Result Comment: AAMIR GEMENT OF PATIENT CARE PER NURSING PROTOCOL Performed By: #### L 501.080 ####[facility] [address] [place], [address] FINGERSTICK GLU 110 mg/dL High 74-106 [facility] Comment on above: Result Comment: AAMIR GEMENT OF PATIENT CARE PER NURSING PROTOCOL Performed By: #### L 501.080 ####[facility] [address] [place], [address] CBC W/Diff, Automatedon 11-0 Absolute Lymph 1.48 X10 3/uL Normal 0.83-4.51 [facility] Comment on above: Performed By: #### L 500.4050, L501.2300, L100.0100, L300.3900, L501.9520, L501.5200, L501.9985 ####[facility] [address] [place], [address] Absolute Neut 4.8 X10 3/uL Normal 2.0-7.7 [facility] Comment on above: Performed By: #### L 500.4050, L501.2300, L100.0100, L300.3900, L501.9520, L501.5200, L501.9985 ####[facility] [address] [place], [address] Basophils/100 WBC (Bld) 0.4 % Normal 0-1 [facility] Comment on above: Performed By: #### L 500.4050, L501.2300, L100.0100, L300.3900, L501.9520, L501.5200, L501.9985 ####[facility] [address] [place], [address] Eosinophils/100 WBC (Bld) 1.3 % Normal 0-5 [facility] Comment on above: Performed By: #### L 500.4050, L501.2300, L100.0100, L300.3900, L501.9520, L501.5200, L501.9985 ####[facility] [address] [place], [address] Erythrocyte distribution width (RBC) [Ratio] 14.1 % Normal 11.6-14.6 [facility] Comment on above: Performed By: #### L 500.4050, L501.2300, L100.0100, L300.3900, L501.9520, L501.5200, L501.9985 ####[facility] [address] [place], [address] Hematocrit (Bld) [Volume fraction] 25.2 % Low 40-54 [facility] Comment on above: Performed By: #### L 500.4050, L501.2300, L100.0100, L300.3900, L501.9520, L501.5200, L501.9985 ####[facility] [address] [place], [address] Hemoglobin (Bld) [Mass/Vol] 8.4 g/dL Low 13.0-16.5 [facility] Comment on above: Performed By: #### L 500.4050, L501.2300, L100.0100, L300.3900, L501.9520, L501.5200, L501.9985 ####[facility] [address] [place], [address] IG% 1.000 High 0.0-0.9 [facility] Comment on above: Result Comment: IG% - Immature Granulocytes (promyelocytes, myelocytes andmetamyelocytes) > 1% indicates that a LEFT SHIFT is Present. Performed By: #### L 500.4050, L501.2300, L100.0100, L300.3900, L501.9520, L501.5200, L501.9985 ####[facility] [address] [place], [address] Lymphocytes/100 WBC (Bld) 21.9 % Normal 19-41 [facility] Comment on above: Performed By: #### L 500.4050, L501.2300, L100.0100, L300.3900, L501.9520, L501.5200, L501.9985 ####[facility] [address] [place], [address] MCH (RBC) [Entitic mass] 30.0 pg Normal 27.0-32.0 [facility] Comment on above: Performed By: #### L 500.4050, L501.2300, L100.0100, L300.3900, L501.9520, L501.5200, L501.9985 ####[facility] [address] [place], [address] MCHC (RBC) [Mass/Vol] 33.3 g/dL Normal 32-36 [facility] Comment on above: Performed By: #### L 500.4050, L501.2300, L100.0100, L300.3900, L501.9520, L501.5200, L501.9985 ####[facility] [address] [place], [address] MCV (RBC) [Entitic vol] 90.0 fL Normal 80-94 [facility] Comment on above: Performed By: #### L 500.4050, L501.2300, L100.0100, L300.3900, L501.9520, L501.5200, L501.9985 ####[facility] [address] [place], [address] Monocytes/100 WBC (Bld) 5.2 % Normal 0-10 [facility] Comment on above: Performed By: #### L 500.4050, L501.2300, L100.0100, L300.3900, L501.9520, L501.5200, L501.9985 ####[facility] [address] [place], [address] Neutrophils/100 WBC (Bld) 70.2 % High 47-70 [facility] Comment on above: Performed By: #### L 500.4050, L501.2300, L100.0100, L300.3900, L501.9520, L501.5200, L501.9985 ####[facility] [address] [place], [address] Nucleated RBC (Bld) [#/Vol] 0 10*3/uL Normal 0-5 [facility] Comment on above: Performed By: #### L 500.4050, L501.2300, L100.0100, L300.3900, L501.9520, L501.5200, L501.9985 ####[facility] [address] [place], [address] Platelet mean volume (Bld) [Entitic vol] 10.5 fL Normal 6.2-12.0 [facility] Comment on above: Performed By: #### L 500.4050, L501.2300, L100.0100, L300.3900, L501.9520, L501.5200, L501.9985 ####[facility] [address] [place], [address] Platelets (Bld) [#/Vol] 180 10*3/uL Normal 150-450 [facility] Comment on above: Performed By: #### L 500.4050, L501.2300, L100.0100, L300.3900, L501.9520, L501.5200, L501.9985 ####[facility] [address] [place], [address] RBC (Bld) [#/Vol] 2.80 10*6/uL Low 4.6-6.2 [facility] Comment on above: Performed By: #### L 500.4050, L501.2300, L100.0100, L300.3900, L501.9520, L501.5200, L501.9985 ####[facility] [address] [place], [address] RDW SD 46.3 fl High 35.1-43.9 [facility] Comment on above: Performed By: #### L 500.4050, L501.2300, L100.0100, L300.3900, L501.9520, L501.5200, L501.9985 ####[facility] [address] [place], [address] WBC (Bld) [#/Vol] 6.8 10*3/uL Normal 4.4-11.0 [facility] Comment on above: Performed By: #### L 500.4050, L501.2300, L100.0100, L300.3900, L501.9520, L501.5200, L501.9985 ####[facility] [address] [place], [address] Carbamazepine (Tegretol)on 09-02-2023 CARBAMAZEPINE 7.5 ug/mL Normal 4.0-12.0 [facility] Comment on above: Performed By: #### L 501.7900 ####[facility] [address] [place], [address] Colonoscopy Reporton Colonoscopy Report Normal [facility] Comprehensive Metabolic Prof ilon 07-03-2024 Albumin [Mass/Vol] 2.7 g/dL Low 3.2-5.0 [facility] Comment on above: Performed By: #### L 500.4050, L501.2300, L100.0100, L300.3900, L501.9520, L501.5200, L501.9985 ####[facility] [address] [place], [address] Albumin/Globulin [Mass ratio] 0.7 {ratio} Low 0.9-2.4 [facility] Comment on above: Performed By: #### L 500.4050, L501.2300, L100.0100, L300.3900, L501.9520, L501.5200, L501.9985 ####[facility] [address] [place], [address] ALK P 43 U/L Low 45-117 [facility] Comment on above: Performed By: #### L 500.4050, L501.2300, L100.0100, L300.3900, L501.9520, L501.5200, L501.9985 ####[facility] [address] [place], [address] ALT [Catalytic activity/Vol] 15 U/L Low 16-61 [facility] Comment on above: Performed By: #### L 500.4050, L501.2300, L100.0100, L300.3900, L501.9520, L501.5200, L501.9985 ####[facility] [address] [place], [address] AST [Catalytic activity/Vol] 8 U/L Low 15-37 [facility] Comment on above: Performed By: #### L 500.4050, L501.2300, L100.0100, L300.3900, L501.9520, L501.5200, L501.9985 ####[facility] [address] [place], [address] Bilirubin [Mass/Vol] 0.30 mg/dL Normal 0.20-1.00 [facility] Comment on above: Result Comment: For patients on eltrombopag therapy, use of Dimension Buena TBIL is not recommended. Performed By: #### L 500.4050, L501.2300, L100.0100, L300.3900, L501.9520, L501.5200, L501.9985 ####[facility] [address] [place], [address] BUN/CRE 10.3 RATIO Normal 10-20 [facility] Comment on above: Performed By: #### L 500.4050, L501.2300, L100.0100, L300.3900, L501.9520, L501.5200, L501.9985 ####[facility] [address] [place], [address] CA,Total 7.6 mg/dL Low 8.5-10.1 [facility] Comment on above: Performed By: #### L 500.4050, L501.2300, L100.0100, L300.3900, L501.9520, L501.5200, L501.9985 ####[facility] [address] [place], [address] Chloride [Moles/Vol] 108 mmol/L High 98-107 [facility] Comment on above: Performed By: #### L 500.4050, L501.2300, L100.0100, L300.3900, L501.9520, L501.5200, L501.9985 ####[facility] [address] [place], [address] CO2 [Moles/Vol] 16.0 mmol/L Low 21.0-32.0 [facility] Comment on above: Performed By: #### L 500.4050, L501.2300, L100.0100, L300.3900, L501.9520, L501.5200, L501.9985 ####[facility] [address] [place], [address] Creatinine [Mass/Vol] 8.67 mg/dL Invalid Interpretation Code 0.70-1.30 [facility] Comment on above: Result Comment: Crit ical Result(s) Called at: 06:43:05 07/03/2024 by:Juana Alcazar to cipriano celis. Results read back bysame.The validity of the calculated GFR GFRAA in patients over70 years has not been determined. Clinical correlation isessential. Performed By: #### L 500.4050, L501.2300, L100.0100, L300.3900, L501.9520, L501.5200, L501.9985 ####[facility] [address] [place], [address] ECRCL 10.62 ml/min Normal [facility] Comment on above: Performed By: #### L 500.4050, L501.2300, L100.0100, L300.3900, L501.9520, L501.5200, L501.9985 ####[facility] [address] [place], [address] EST GFR - AA 8 mL/min Low >60 [facility] Comment on above: Result Comment: Afri can Polish GFR Calc Performed By: #### L 500.4050, L501.2300, L100.0100, L300.3900, L501.9520, L501.5200, L501.9985 ####[facility] [address] [place], [address] GAP 11 Normal 5-15 [facility] Comment on above: Performed By: #### L 500.4050, L501.2300, L100.0100, L300.3900, L501.9520, L501.5200, L501.9985 ####[facility] [address] [place], [place], [address] GFR/1.73 sq M.predicted among non-blacks MDRD (S/P/Bld) [Vol rate/Area] 7 mL/min/{1.73_m2} Low >60 [facility] Comment on above: Result Comment: Non- GFR Calc Performed By: #### L 500.4050, L501.2300, L100.0100, L300.3900, L501.9520, L501.5200, L501.9985 ####[facility] [address] [place], [place], [address] Globulin (S) [Mass/Vol] 3.7 g/dL Normal 2.2-4.2 [facility] Comment on above: Performed By: #### L 500.4050, L501.2300, L100.0100, L300.3900, L501.9520, L501.5200, L501.9985 ####[facility] [address] [place], [address] Glucose [Mass/Vol] 117 mg/dL High 74-106 [facility] Comment on above: Result Comment: Fast ing Glucose result from 100 to 125 mg/dLsuggests IMPAIRED HOMEOSTASIS per A.D.A. criteria. Performed By: #### L 500.4050, L501.2300, L100.0100, L300.3900, L501.9520, L501.5200, L501.9985 ####[facility] [address] [place], [address] Potassium [Moles/Vol] 5.5 mmol/L High 3.5-5.1 [facility] Comment on above: Performed By: #### L 500.4050, L501.2300, L100.0100, L300.3900, L501.9520, L501.5200, L501.9985 ####[facility] [address] [place], [address] Sodium [Moles/Vol] 135 mmol/L Low 136-145 [facility] Comment on above: Performed By: #### L 500.4050, L501.2300, L100.0100, L300.3900, L501.9520, L501.5200, L501.9985 ####[facility] [address] [place], [address] T PROT 6.4 g/dL Normal 6.4-8.2 [facility] Comment on above: Performed By: #### L 500.4050, L501.2300, L100.0100, L300.3900, L501.9520, L501.5200, L501.9985 ####[facility] [address] [place], [address] Urea nitrogen [Mass/Vol] 89 mg/dL High 7-18 [facility] Comment on above: Performed By: #### L 500.4050, L501.2300, L100.0100, L300.3900, L501.9520, L501.5200, L501.9985 ####[facility] [address] [place], [address] EGD Reporton 07-03-2024 EGD Report Normal [facility] Hemoglobin A1con 07-03-2024 HbA1c (Bld) [Mass fraction] 6.4 % High 3.8-5.6 [facility] Comment on above: Result Comment: Norm al < 5.7 % Prediabetic 5.7 - 6.4 % Diabetic >or= 6.5 % Please note range changes. Performed By: #### L 500.4050, L501.2300, L100.0100, L300.3900, L501.9520, L501.5200, L501.9985 ####[facility] [address] [place], [address] MR/POSTOP.ANEon 07-03-2024 MR/POSTOP.ANE Normal [facility] MR/CJVWCFED5on 07-03-2024 MR/POSTOPAN2 Normal [facility] Magnesiumon 07-03-2024 Magnesium [Mass/Vol] 1.3 mg/dL Low 1.6-2.6 [facility] Comment on above: Performed By: #### L 500.4050, L501.2300, L100.0100, L300.3900, L501.9520, L501.5200, L501.9985 ####[facility] [address] [place], [address] Partial Thromboplast Timeon 07-03-2024 aPTT Coag (Bld) [Time] 35.5 s Normal 24.1-36.2 [facility] Comment on above: Performed By: #### L 300.4310 ####[facility] [address] [place], [address] Phosphoruson 07-03-2024 Phosphate [Mass/Vol] 8.0 mg/dL High 2.5-4.9 [facility] Comment on above: Performed By: #### L 500.4050, L501.2300, L100.0100, L300.3900, L501.9520, L501.5200, L501.9985 ####[facility] [address] [place], [address] Prothrombin Time w/INRon INR Coag (PPP) [Relative time] 1.2 {INR} Normal [facility] Comment on above: Performed By: #### L 500.4050, L501.2300, L100.0100, L300.3900, L501.9520, L501.5200, L501.9985 ####[facility] [address] [place], [address] PT Coag (PPP) [Time] 15.0 s High 11.7-14.9 [facility] Comment on above: Performed By: #### L 500.4050, L501.2300, L100.0100, L300.3900, L501.9520, L501.5200, L501.9985 ####[facility] [address] [place], [address] Surgery Specimen Level George 07-03-2024 Surgery Specimen Level IV Normal [facility] Comment on above: Performed By: #### P SUIV ####[facility] [address] [place], [address] Thyroid Stim Hormone (TSH)on 07-03-2024 TSH 0.632 uIU/mL Normal 0.358-3.740 [facility] Comment on above: Performed By: #### L 500.4050, L501.2300, L100.0100, L300.3900, L501.9520, L501.5200, L501.9985 ####[facility] [address] [place], [address] Vimentin (initial)on 024 Vimentin (initial) Normal [facility] Comment on above: Performed By: #### P VIM ####[facility] [address] [place], [address] BRCon 07-02-2024 RC Normal [facility] Comment on above: Result Comment: [id number] OP RC NOT [id number] OP RC TRANSFUSED 07/02/24 2100 Performed By: #### B , [facility] ####[facility] [address] [place], [address] Basic Metabolic Profile (BMP )on 07-02-2024 BUN/CRE 10.7 RATIO Normal 10-20 [facility] Comment on above: Performed By: #### M 100.7900, L100.0500, L500.2500 ####[facility] [address] [place], [address] CA,Total 7.1 mg/dL Low 8.5-10.1 [facility] Comment on above: Performed By: #### M 100.7900, L100.0500, L500.2500 ####[facility] [address] [place], [address] Chloride [Moles/Vol] 107 mmol/L Normal 98-107 [facility] Comment on above: Performed By: #### M 100.7900, L100.0500, L500.2500 ####[facility] [address] [place], [address] CO2 [Moles/Vol] 16.0 mmol/L Low 21.0-32.0 [facility] Comment on above: Performed By: #### M 100.7900, L100.0500, L500.2500 ####[facility] [address] [place], [address] Creatinine [Mass/Vol] 8.49 mg/dL Invalid Interpretation Code 0.70-1.30 [facility] Comment on above: Result Comment: Crit ical Result(s) Called at: 18:38:50 07/02/2024 by:Kate Buck to Amber. Results read back bysame.The validity of the calculated GFR GFRAA in patients over70 years has not been determined. Clinical correlation isessential. Performed By: #### M 100.7900, L100.0500, L500.2500 ####[facility] [address] [place], [address] ECRCL 10.92 ml/min Normal [facility] Comment on above: Performed By: #### M 100.7900, L100.0500, L500.2500 ####[facility] [address] [place], [address] EST GFR - AA 8 mL/min Low >60 [facility] Comment on above: Result Comment: Afri can Polish GFR Calc Performed By: #### M 100.7900, L100.0500, L500.2500 ####[facility] [address] [place], [address] GAP 10 Normal 5-15 [facility] Comment on above: Performed By: #### M 100.7900, L100.0500, L500.2500 ####[facility] [address] [place], [address] GFR/1.73 sq M.predicted among non-blacks MDRD (S/P/Bld) [Vol rate/Area] 7 mL/min/{1.73_m2} Low >60 [facility] Comment on above: Result Comment: Non- GFR Calc Performed By: #### M 100.7900, L100.0500, L500.2500 ####[facility] [address] [place], [address] Glucose [Mass/Vol] 220 mg/dL High 74-106 [facility] Comment on above: Result Comment: Gluc ose result greater than or equal to 200 mg/dLsuggests DIABETES MELLITUS per A.D.A. criteria. Performed By: #### M 100.7900, L100.0500, L500.2500 ####[facility] [address] [place], [address] Potassium [Moles/Vol] 5.4 mmol/L High 3.5-5.1 [facility] Comment on above: Performed By: #### M 100.7900, L100.0500, L500.2500 ####[facility] [address] [place], [address] Sodium [Moles/Vol] 133 mmol/L Low 136-145 [facility] Comment on above: Performed By: #### M 100.7900, L100.0500, L500.2500 ####[facility] [address] [place], [address] Urea nitrogen [Mass/Vol] 91 mg/dL High 7-18 [facility] Comment on above: Performed By: #### M 100.7900, L100.0500, L500.2500 ####[facility] [address] [place], [address] CBC-Complete Blood Cnt No Di ffon 07-02-2024 Erythrocyte distribution width (RBC) [Ratio] 13.5 % Normal 11.6-14.6 [facility] Comment on above: Performed By: #### M 100.7900, L100.0500, L500.2500 ####[facility] [address] [place], [address] Hematocrit (Bld) [Volume fraction] 20.9 % Low 40-54 [facility] Comment on above: Performed By: #### M 100.7900, L100.0500, L500.2500 ####[facility] [address] [place], [address] Hemoglobin (Bld) [Mass/Vol] 6.9 g/dL Low 13.0-16.5 [facility] Comment on above: Performed By: #### M 100.7900, L100.0500, L500.2500 ####[facility] [address] [place], [address] MCH (RBC) [Entitic mass] 30.3 pg Normal 27.0-32.0 [facility] Comment on above: Performed By: #### M 100.7900, L100.0500, L500.2500 ####[facility] [address] [place], [address] MCHC (RBC) [Mass/Vol] 33.0 g/dL Normal 32-36 [facility] Comment on above: Performed By: #### M 100.7900, L100.0500, L500.2500 ####[facility] [address] [place], [address] MCV (RBC) [Entitic vol] 91.7 fL Normal 80-94 [facility] Comment on above: Performed By: #### M 100.7900, L100.0500, L500.2500 ####[facility] [address] [place], [address] Platelet mean volume (Bld) [Entitic vol] 10.5 fL Normal 6.2-12.0 [facility] Comment on above: Performed By: #### M 100.7900, L100.0500, L500.2500 ####[facility] [address] [place], [address] Platelets (Bld) [#/Vol] 158 10*3/uL Normal 150-450 [facility] Comment on above: Performed By: #### M 100.7900, L100.0500, L500.2500 ####[facility] [address] [place], [address] RBC (Bld) [#/Vol] 2.28 10*6/uL Low 4.6-6.2 [facility] Comment on above: Performed By: #### M 100.7900, L100.0500, L500.2500 ####[facility] [address] [place], [address] RDW SD 45.3 fl High 35.1-43.9 [facility] Comment on above: Performed By: #### M 100.7900, L100.0500, L500.2500 ####[facility] [address] [place], [address] WBC (Bld) [#/Vol] 5.0 10*3/uL Normal 4.4-11.0 [facility] Comment on above: Performed By: #### M 100.7900, L100.0500, L500.2500 ####[facility] [address] [place], [address] Emergency Department Summary on 07-02-2024 Emergency Department Summary Normal [facility] Ferritinon 07-02-2024 Ferritin [Mass/Vol] 289 ng/mL Normal 26-388 [facility] Comment on above: Order Comment: Has P atient had X-rays with Contrast this admission? NN Performed By: #### L 503.6550, L503.0105, L503.6030, L506.0250 ####[facility] [address] [place], [address] Folates, (Folic Acid)on FOLATES 4.70 ng/mL Normal 3.1-55.4 [facility] Comment on above: Order Comment: Has P atient had X-rays with Contrast this admission? NN Performed By: #### L 503.6550, L503.0105, L503.6030, L506.0250 ####[facility] [address] [place], [address] H AND P Exam - Hospitaliston 07-02-2024 H&P Exam - Hospitalist Normal [facility] Iron+Iron Binding Capacityon 07-02-2024 Iron [Mass/Vol] 192 ug/dL High 65-175 [facility] Comment on above: Order Comment: Has Bob mari had X-rays with Contrast this admission? NN Performed By: #### L 503.6550, L503.0105, L503.6030, L506.0250 ####[facility] [address] [place], [address] IRON SATURATION 102.1 High 15.0-55.0 [facility] Comment on above: Order Comment: Has Bob mari had X-rays with Contrast this admission? NN Performed By: #### L 503.6550, L503.0105, L503.6030, L506.0250 ####[facility] [address] [place], [address] TIBC 188 ug/dL Low 250-450 [facility] Comment on above: Order Comment: Has Bob mari had X-rays with Contrast this admission? NN Performed By: #### L 503.6550, L503.0105, L503.6030, L506.0250 ####[facility] [address] [place], [address] MR/CON.PCM.GIon 07-02-2024 MR/CON.PCM.GI Normal [facility] Stool Occult Blood iFOBon STOB Normal [facility] Comment on above: Performed By: #### M 100.7900, L100.0500, L500.2500 ####[facility] [address] [place], [address] Type AND Screenon 07-02-2024 ABO and Rh group Nom (Bld) Blood group O Rh(D) positive Normal [facility] Comment on above: Order Comment: CMV N EG? NNumber of units to transfuse: 2Is pt's HR > 100 bpm? NReason for Ordering Blood: AcuteAre the blood/blood products to be transfused? YIs the patient having/had surgery? NWantonio Serrano Performed By: #### B TS, BRC ####[facility] [address] [place], [address] Vitamin B12on 07-02-2024 Cobalamin (Vitamin B12) [Mass/Vol] 381 pg/mL Normal 211-911 [facility] Comment on above: Performed By: #### L 503.6550, L503.0105, L503.6030, L506.0250 ####[facility] [address] [place], [address] Calprotectin stoolOrdered By : Jimmie Ibarra on 06-26-2024 Calprotectin stool 71 ug/g 0-120 [facility] Comment on above: Concentration Interp retation Follow-Up< 5 - 50 ug/g Normal None>50 -120 ug/g Borderline Re-evaluate in 4-6 weeks >120 ug/g Abnormal Repeat as clinically indicatedPerformed at: [facility] [address] [id number] Director: Opal Arnold MD, Phone: [phone] Clostridium difficile detect ion by polymerase chain reactionOrdered By: Jimmie Ibarra on 06-26-2024 C. difficile DNA RAYMOND+probe Ql (Unsp spec) [facility] C. difficile DNA RAYMOND+probe Ql (Unsp spec) [facility] Stool gastrointestinal hemog lobin detection by immunologic methodOrdered By: Jimmie Ibarra on 06-26-2024 Lower GI hemoglobin IA Ql (Stl) Positive Abnormal [facility] Lower GI hemoglobin IA Ql (Stl) Positive Abnormal [facility] Stool lactoferrin detection by immunoassayOrdered By: Jimmie Ibarra on 06-26-2024 Lactoferrin IA Ql (Stl) [facility] Lactoferrin IA Ql (Stl) [facility] No Panel InformationOrdered By: Radha Kelley on 06-12-2024 Vitamin D 25-Hydroxy 7.3 ng/mL Low 30.0-100.0 [facility] Comment on above: Vitamin D deficiency has been defined by the [place] ofMedicine and an Endocrine Society practice guideline as alevel of serum 25-OH vitamin D less than 20 ng/mL (1,2).The Endocrine Society went on to further define vitamin Dinsufficiency as a level between 21 and 29 ng/mL (2).1. IOM ([place] of [employer]). 2010. Dietary reference intakes for calcium and D. [place]: The National Academies Press.2. Jin MF, Uli MORFIN, Kelly DUMAS, et al. Evaluation, treatment, and prevention of vitamin D deficiency: an Endocrine Society clinical practice guideline. JCEM. 2010; 96(7):1911-30.Performed at: [facility] [id number] Director: Bradley Peña PhD, Phone: [phone] CBCDIF (EXTERNAL)Ordered By: Buffy Farris on 06-06-2024 BASO ABS [facility] Basophils/100 WBC (Bld) 0.6 % 0 - 1.5 % [facility] EOS ABS [facility] Eosinophils/100 WBC (Bld) 2.0 % 1 - 3 % [facility] Hematocrit (Bld) [Volume fraction] 21.5 % Abnormal 39 - 55 % [facility] Hemoglobin (Bld) [Mass/Vol] 7.2 g/dL Abnormal 14 - 16.5 g/dL [facility] Interpretation and review of laboratory results Abnormal [facility] Lymphocytes (Bld) [#/Vol] 1.58 10*3/uL 1.2 - 4 K/uL [facility] Lymphocytes/100 WBC (Bld) 30.9 % Abnormal 20 - 30 % [facility] MCH (RBC) [Entitic mass] 30.9 pg 25.4 - 34.6 pg [facility] MCHC (RBC) [Mass/Vol] 33.5 g/dL 30 - 36 g/dL [facility] MCV (RBC) [Entitic vol] 92.3 fL 79 - 98 fL [facility] MONO ABS [facility] Monocytes/100 WBC (Bld) 5.5 % 2 - 8 % [facility] NEUT ABS 3.1 K/uL 1.9 - 8 K/uL [facility] Neutrophils/100 WBC (Bld) 60.4 % 40 - 74 % [facility] Platelet mean volume (Bld) [Entitic vol] 9.7 fL 7.4 - 10.4 fL [facility] Platelets (Bld) [#/Vol] 164 10*3/uL 140 - 440 K/uL [facility] RBC (Bld) [#/Vol] 2.33 10*6/uL Abnormal [facility] RDW [facility] WBC (Bld) [#/Vol] 5.1 10*3/uL 3.9 - 11 K/uL [facility] Serum or plasma carcinoembry onic antigen measurement (mass/volume)Ordered By: Maureen Campbell on 05-29-2024 Carcinoembryonic Ag [Mass/Vol] 2.1 ng/mL [facility] Absolute lymphocyte countOrd ered By: Fransisco Lawson on 12-18-2023 Lymphocytes Auto (Unsp spec) [#/Vol] 1.23 10*3/uL 0.83-4.51 [facility] Automated lymphocyte count a s percentage of total leukocytesOrdered By: Fransisco Lawson on 12-18-2023 Lymphocytes/100 WBC Auto (Unsp spec) 23.1 % 19-41 [facility] Basophil percentageOrdered B y: Fransisco Lawson on 12-18-2023 Basophils/100 WBC (Bld) 0.6 % 0-1 [facility] Chloride [Moles/Vol] 112 mmol/L 98-107 [facility] Eosinophils/100 WBC (Bld) 2.6 % 0-5 [facility] Glucose [Mass/Vol] 184 mg/dL 74-106 [facility] Comment on above: Fasting Glucose resu lt greater than or equal to 126 mg/dL suggests DIABETES MELLITUS per A.D.A. criteria. Hemoglobin (Bld) [Mass/Vol] 8.3 g/dL 13.0-16.5 [facility] Monocytes/100 WBC (Bld) 6.2 % 0-10 [facility] Neutrophils (Bld) [#/Vol] 3.6 10*3/uL 2.0-7.7 [facility] Neutrophils/100 WBC (Bld) 66.9 % 47-70 [facility] Potassium [Moles/Vol] 5.3 mmol/L 3.5-5.1 [facility] Sodium [Moles/Vol] 138 mmol/L 136-145 [facility] WBC (Bld) [#/Vol] 5.3 10*3/uL 4.4-11.0 [facility] Determination of erythrocyte mean corpuscular volume (MCV)Ordered By: Fransisco Lawson on 12-18-2023 MCV (RBC) [Entitic vol] 88.1 fL 80-94 [facility] Erythrocyte distribution wid th ratioOrdered By: Fransisco Lawson on 12-18-2023 Erythrocyte distribution width (RBC) [Ratio] 13.2 % 11.6-14.6 [facility] Erythrocyte distribution wid th standard deviationOrdered By: Fransisco Lawson on 12-18-2023 Erythrocyte distribution width (RBC) [Entitic vol] 42.4 fL 35.1-43.9 [facility] Hematocrit Auto (Bld) [Volum e fraction]Ordered By: Fransisco Lawson on 12-18-2023 Hematocrit (Bld) [Volume fraction] 24.4 % 40-54 [facility] Immature granulocytes/100 WB C Auto (Bld)Ordered By: Fransisco Lawson on 12-18-2023 Immature granulocytes/100 WBC (Bld) 0.600 % 0.0-0.9 [facility] Comment on above: IG% - Immature Granu locytes (promyelocytes, myelocytes and metamyelocytes) > 1% indicates that a LEFT SHIFT is Present. Laboratory - Chemistry and C hemistry - challengeOrdered By: Fransisco Lawson on 12-18-2023 CO2 [Moles/Vol] 22.0 mmol/L 21.0-32.0 [facility] Urea nitrogen/Creatinine [Mass ratio] 8.5 mg/mg 10-20 [facility] Laboratory - Hematology and Cell countsOrdered By: Fransisco Lawson on 12-18-2023 MCH (RBC) [Entitic mass] 30.0 pg 27.0-32.0 [facility] MCHC (RBC) [Mass/Vol] 34.0 g/dL 32-36 [facility] Nucleated RBC/100 WBC (Bld) [Ratio] 0 % 0-5 [facility] Platelet mean volume (Bld) [Entitic vol] 9.9 fL 6.2-12.0 [facility] Platelets (Bld) [#/Vol] 183 10*3/uL 150-450 [facility] No Panel InformationOrdered By: Fransisco Lawson on 12-18-2023 Estimated Creatinine Clearance Calc 23.14 ml/min [facility] Estimated GFR (MDRD) Amer 20 mL/min >60 [facility] Comment on above: GFR Calc Estimated GFR (MDRD) Non-Af Amer 17 mL/min >60 [facility] Comment on above: Non- GFR Calc RBC Auto (Bld) [#/Vol]Ordere d By: Fransisco Lawson on 12-18-2023 RBC (Bld) [#/Vol] 2.77 10*6/uL 4.6-6.2 [facility] Serum or plasma calcium abhi urement (mass/volume)Ordered By: Fransisco Lawson on 12-18-2023 Calcium [Mass/Vol] 7.7 mg/dL 8.5-10.1 [facility] Serum or plasma creatinine m easurement (mass/volume)Ordered By: Fransisco Lawson on 12-18-2023 Creatinine [Mass/Vol] 4.00 mg/dL 0.70-1.30 [facility] Comment on above: The validity of the calculated GFR & GFRAA in patients over 70 years has not been determined. Clinical correlation is essential. Serum or plasma urea nitroge n measurement (mass/volume)Ordered By: Fransisco Lawson on 12-18-2023 Urea nitrogen [Mass/Vol] 34 mg/dL 7-18 [facility] Thin prep Papanicolaou smear with manual screeningOrdered By: Fransisco Lawson on 12-18-2023 Thin prep Papanicolaou smear with manual screening 4 5-15 [facility] Basophil percentageOrdered B y: Juana Harvey on 12-09-2023 Basophil percentage 4.4 mg/dL 2.5-4.9 [facility] Chloride [Moles/Vol] 115 mmol/L 98-107 [facility] Glucose [Mass/Vol] 114 mg/dL 74-106 [facility] Comment on above: Fasting Glucose resu lt from 100 to 125 mg/dL suggests IMPAIRED HOMEOSTASIS per A.D.A. criteria. Potassium [Moles/Vol] 4.5 mmol/L 3.5-5.1 [facility] Sodium [Moles/Vol] 140 mmol/L 136-145 [facility] Laboratory - Chemistry and C hemistry - challengeOrdered By: Juana Harvey on 12-09-2023 CO2 [Moles/Vol] 19.0 mmol/L 21.0-32.0 [facility] Urea nitrogen/Creatinine [Mass ratio] 9.0 mg/mg 10-20 [facility] No Panel InformationOrdered By: Juana Harvey on 12-09-2023 Estimated Creatinine Clearance Calc 23.51 ml/min [facility] Estimated GFR (MDRD) Amer 21 mL/min >60 [facility] Comment on above: GFR Calc Estimated GFR (MDRD) Non-Af Amer 17 mL/min >60 [facility] Comment on above: Non- GFR Calc Serum or plasma calcium abhi urement (mass/volume)Ordered By: Juana Harvey on 12-09-2023 Calcium [Mass/Vol] 7.9 mg/dL 8.5-10.1 [facility] Serum or plasma creatinine m easurement (mass/volume)Ordered By: Juana Harvey on 12-09-2023 Creatinine [Mass/Vol] 3.89 mg/dL 0.70-1.30 [facility] Comment on above: The validity of the calculated GFR & GFRAA in patients over 70 years has not been determined. Clinical correlation is essential. Serum or plasma urea nitroge n measurement (mass/volume)Ordered By: Juana Harvey on 12-09-2023 Urea nitrogen [Mass/Vol] 35 mg/dL 7-18 [facility] Thin prep Papanicolaou smear with manual screeningOrdered By: Alfredo Ag on 12-09-2023 Thin prep Papanicolaou smear with manual screening 85 mg/dL 74-106 [facility] Comment on above: MANAGEMENT OF PATIEN T CARE PER NURSING PROTOCOL Thin prep Papanicolaou smear with manual screeningOrdered By: Juana Harvey on 12-09-2023 Thin prep Papanicolaou smear with manual screening 2.2 g/dL 3.2-5.0 [facility] Absolute lymphocyte countOrd ered By: Landry James on 12-08-2023 Lymphocytes Auto (Unsp spec) [#/Vol] 1.40 10*3/uL 0.83-4.51 [facility] Automated lymphocyte count a s percentage of total leukocytesOrdered By: Landry James on 12-08-2023 Lymphocytes/100 WBC Auto (Unsp spec) 25.6 % 19-41 [facility] Basophil percentageOrdered B y: Juana Harvey on 12-08-2023 Basophil percentage 0-5 SEEN /hpf 0-5 [facility] Basophil percentageOrdered B y: Landry James on 12-08-2023 Basophils/100 WBC (Bld) 0.4 % 0-1 [facility] Bilirubin [Mass/Vol] 0.20 mg/dL 0.20-1.00 [facility] Comment on above: For patients on eltr ombopag therapy, use of Dimension [place] TBIL is not recommended. Cholesterol [Mass/Vol] 225 mg/dL <200 [facility] Comment on above: <200 mg/dL Desirable 200-240 mg/dL Borderline >240 mg/dL High Risk Eosinophils/100 WBC (Bld) 1.1 % 0-5 [facility] Hemoglobin (Bld) [Mass/Vol] 8.8 g/dL 13.0-16.5 [facility] Monocytes/100 WBC (Bld) 3.7 % 0-10 [facility] Neutrophils (Bld) [#/Vol] 3.7 10*3/uL 2.0-7.7 [facility] Neutrophils/100 WBC (Bld) 68.3 % 47-70 [facility] Protein [Mass/Vol] 5.9 g/dL 6.4-8.2 [facility] Triglyceride [Mass/Vol] 439 mg/dL <199 [facility] Comment on above: The drugs N-Acetylcy steine and Metamizole may falsely depress this assay. TRIGLYCERIDE IS GREATER THAN 400 mg/dL. LDL RESULT IS INVALID AND WILL NOT BE REPORTED.Serum Triglycerides Reference Interval Normal <150 mg/dL Borderline high 150 - 199 mg/dL High 200 - 499 mg/dL Very High > or = 500 mg/dL WBC (Bld) [#/Vol] 5.5 10*3/uL 4.4-11.0 [facility] Bilirubin Test strip Ql (U)O rdered By: Juana Harvey on 12-08-2023 Bilirubin Ql (U) Negative Negative [facility] Determination of erythrocyte mean corpuscular volume (MCV)Ordered By: Landry James on 12-08-2023 MCV (RBC) [Entitic vol] 89.4 fL 80-94 [facility] Erythrocyte distribution wid th ratioOrdered By: Landyr James on 12-08-2023 Erythrocyte distribution width (RBC) [Ratio] 13.7 % 11.6-14.6 [facility] Erythrocyte distribution wid th standard deviationOrdered By: Landry James on 12-08-2023 Erythrocyte distribution width (RBC) [Entitic vol] 44.6 fL 35.1-43.9 [facility] Hematocrit Auto (Bld) [Volum e fraction]Ordered By: Landry James on 12-08-2023 Hematocrit (Bld) [Volume fraction] 26.1 % 40-54 [facility] Immature granulocytes/100 WB C Auto (Bld)Ordered By: Landry James on 12-08-2023 Immature granulocytes/100 WBC (Bld) 0.900 % 0.0-0.9 [facility] Comment on above: IG% - Immature Granu locytes (promyelocytes, myelocytes and metamyelocytes) > 1% indicates that a LEFT SHIFT is Present. Ketones Test strip Ql (U)Ord ered By: Juana Harvey on 12-08-2023 Ketones Ql (U) Negative Negative [facility] Laboratory - Chemistry and C hemistry - challengeOrdered By: Landry James on 12-08-2023 Albumin/Globulin [Mass ratio] 0.6 {ratio} 0.9-2.4 [facility] ALP [Catalytic activity/Vol] 75 U/L 45-117 [facility] ALT [Catalytic activity/Vol] 10 U/L 16-61 [facility] Cholesterol in HDL [Mass/Vol] 37 mg/dL >40 [facility] Comment on above: The drugs N-Acetylcy steine and Metamizole may falsely depress this assay. Reference Range HDL <40 mg/dL Low HDL Cholesterol HDL >or= 60 mg/dL High HDL Cholesterol Globulin (S) [Mass/Vol] 3.6 g/dL 2.2-4.2 [facility] Magnesium [Mass/Vol] 1.5 mg/dL 1.6-2.6 [facility] - Hematology and Cell countsOrdered By: Landry James on 12-08-2023 MCH (RBC) [Entitic mass] 30.1 pg 27.0-32.0 [facility] MCHC (RBC) [Mass/Vol] 33.7 g/dL 32-36 [facility] Nucleated RBC/100 WBC (Bld) [Ratio] 0 % 0-5 [facility] Platelet mean volume (Bld) [Entitic vol] 10.0 fL 6.2-12.0 [facility] Platelets (Bld) [#/Vol] 176 10*3/uL 150-450 [facility] Mucus LM Ql (Urine sed)Order ed By: Juana Harvey on 12-08-2023 Mucus Ql (Urine sed) 0 SEEN /hpf [facility] Nitrite Test strip Ql (U)Ord ered By: Juana Harvey on 12-08-2023 Nitrite Ql (U) Negative Negative [facility] No Panel InformationOrdered By: Juana Harvey on 12-08-2023 Urine RBC 0-5 SEEN /hpf 0-5 [facility] No Panel InformationOrdered By: Landry James on 12-08-2023 LDL Cholesterol [facility] Comment on above: Test not performed VLDL Cholesterol [facility] Comment on above: Test not performed Protein Test strip Ql (U)Ord ered By: Juana Harvey on 12-08-2023 Protein Ql (U) 500 mg/dl Negative [facility] RBC Auto (Bld) [#/Vol]Ordere d By: Landry James on 12-08-2023 RBC (Bld) [#/Vol] 2.92 10*6/uL 4.6-6.2 [facility] Serum or plasma thyroid stim ulating hormone (TSH) measurement (units/volume)Ordered By: Landry James on 12-08-2023 TSH Qn 0.34 uIU/mL 0.358-3.74 [facility] Squamous epithelial cells de tection in urine sediment by light microscopyOrdered By: Juana Harvey on 12-08-2023 Epithelial cells.squamous LM Ql (Urine sed) 0 SEEN /hpf 0-5 [facility] Thin prep Papanicolaou smear with manual screeningOrdered By: Landry James on 12-08-2023 Thin prep Papanicolaou smear with manual screening 8 U/L 15-37 [facility] Thin prep Papanicolaou smear with manual screening 5 5-15 [facility] Urine blood detectionOrdered By: Juana Harvey on 12-08-2023 RBC Ql (U) 10 /ul Negative [facility] Urine clarityOrdered By: Josh Harvey on 12-08-2023 Clarity (U) Clear Clear [facility] Urine color determinationOrd ered By: Juana Harvey on 12-08-2023 Color (U) Yellow Yellow [facility] Urine glucose detectionOrder ed By: Juana Harvey on 12-08-2023 Glucose Ql (U) 50 mg/dl Normal [facility] Urine leukocyte esterase det ection by dipstickOrdered By: Juana Harvey on 12-08-2023 Leukocyte esterase Test strip Ql (U) Negative Negative [facility] Urine pHOrdered By: Juana Harvey on 12-08-2023 pH (U) 6.0 [pH] 5.0 - 8.0 [facility] Urine sediment bacteria coun t by microscopy (number/high power field)Ordered By: Juana Harvey on 12-08-2023 Bacteria LM.HPF (Urine sed) [#/Area] 0 /[HPF] None Seen [facility] Urine specific gravity measu rementOrdered By: Juana Harvey on 12-08-2023 Specific gravity (U) [Rel density] 1.015 1.002-1.030 [facility] Urine urobilinogen measureme ntOrdered By: Juana Harvey on 12-08-2023 Urobilinogen Ql (U) Normal mg/dl Normal [facility] Whole blood hemoglobin A1c/t otal hemoglobin ratio (mass fraction)Ordered By: Landry James on 12-08-2023 HbA1c (Bld) [Mass fraction] 7.3 % 3.8-5.6 [facility] Comment on above: Normal < 5.7 % Predi abetic 5.7 - 6.4 % Diabetic >or= 6.5 % Please note range changes. Absolute lymphocyte countOrd ered By: Fransisco Lawson on 12-07-2023 Lymphocytes Auto (Unsp spec) [#/Vol] 1.63 10*3/uL 0.83-4.51 [facility] Automated lymphocyte count a s percentage of total leukocytesOrdered By: Fransisco Lawson on 12-07-2023 Lymphocytes/100 WBC Auto (Unsp spec) 31.0 % 19-41 [facility] Basophil percentageOrdered B y: Fransisco Lawsno on 12-07-2023 Basophils/100 WBC (Bld) 0.6 % 0-1 [facility] Chloride [Moles/Vol] 113 mmol/L 98-107 [facility] Eosinophils/100 WBC (Bld) 1.3 % 0-5 [facility] Glucose [Mass/Vol] 186 mg/dL 74-106 [facility] Comment on above: Fasting Glucose resu lt greater than or equal to 126 mg/dL suggests DIABETES MELLITUS per A.D.A. criteria. Hemoglobin (Bld) [Mass/Vol] 8.6 g/dL 13.0-16.5 [facility] Monocytes/100 WBC (Bld) 5.3 % 0-10 [facility] Neutrophils (Bld) [#/Vol] 3.2 10*3/uL 2.0-7.7 [facility] Neutrophils/100 WBC (Bld) 61.2 % 47-70 [facility] Potassium [Moles/Vol] 4.7 mmol/L 3.5-5.1 [facility] Sodium [Moles/Vol] 136 mmol/L 136-145 [facility] WBC (Bld) [#/Vol] 5.3 10*3/uL 4.4-11.0 [facility] Basophil percentageOrdered B y: Grisel Timmons on 12-07-2023 Bilirubin [Mass/Vol] 0.20 mg/dL 0.20-1.00 [facility] Comment on above: For patients on eltr ombopag therapy, use of Dimension [place] TBIL is not recommended. Chloride [Moles/Vol] 111 mmol/L 98-107 [facility] Glucose [Mass/Vol] 198 mg/dL 74-106 [facility] Comment on above: Fasting Glucose resu lt greater than or equal to 126 mg/dL suggests DIABETES MELLITUS per A.D.A. criteria. Potassium [Moles/Vol] 5.7 mmol/L 3.5-5.1 [facility] Protein [Mass/Vol] 6.8 g/dL 6.4-8.2 [facility] Sodium [Moles/Vol] 137 mmol/L 136-145 [facility] Determination of erythrocyte mean corpuscular volume (MCV)Ordered By: Fransisco Lawson on 12-07-2023 MCV (RBC) [Entitic vol] 89.4 fL 80-94 [facility] Erythrocyte distribution wid th ratioOrdered By: Fransisco Lawson on 12-07-2023 Erythrocyte distribution width (RBC) [Ratio] 13.5 % 11.6-14.6 [facility] Erythrocyte distribution wid th standard deviationOrdered By: Fransisco Lawson on 12-07-2023 Erythrocyte distribution width (RBC) [Entitic vol] 43.9 fL 35.1-43.9 [facility] Hematocrit Auto (Bld) [Volum e fraction]Ordered By: Fransisco Lawson on 12-07-2023 Hematocrit (Bld) [Volume fraction] 25.2 % 40-54 [facility] Immature granulocytes/100 WB C Auto (Bld)Ordered By: Fransisco Lawson on 12-07-2023 Immature granulocytes/100 WBC (Bld) 0.600 % 0.0-0.9 [facility] Comment on above: IG% - Immature Granu locytes (promyelocytes, myelocytes and metamyelocytes) > 1% indicates that a LEFT SHIFT is Present. Laboratory - Chemistry and C hemistry - challengeOrdered By: Fransisco Lawson on 12-07-2023 CO2 [Moles/Vol] 20.0 mmol/L 21.0-32.0 [facility] Urea nitrogen/Creatinine [Mass ratio] 8.9 mg/mg 10- [facility] Laboratory - Chemistry and C hemistry - challengeOrdered By: Grisel Timmons on 12-07-2023 Albumin/Globulin [Mass ratio] 0.7 {ratio} 0.9-2.4 [facility] ALP [Catalytic activity/Vol] 87 U/L 45-117 [facility] ALT [Catalytic activity/Vol] 11 U/L 16-61 [facility] CO2 [Moles/Vol] 23.0 mmol/L 21.0-32.0 [facility] Globulin (S) [Mass/Vol] 4.1 g/dL 2.2-4.2 [facility] Urea nitrogen/Creatinine [Mass ratio] 8.5 mg/mg 10-20 [facility] - Hematology and Cell countsOrdered By: Fransisco Lawson on 12-07-2023 MCH (RBC) [Entitic mass] 30.5 pg 27.0-32.0 [facility] MCHC (RBC) [Mass/Vol] 34.1 g/dL 32-36 [facility] Nucleated RBC/100 WBC (Bld) [Ratio] 0 % 0-5 [facility] Platelet mean volume (Bld) [Entitic vol] 10.5 fL 6.2-12.0 [facility] Platelets (Bld) [#/Vol] 202 10*3/uL 150-450 [facility] - Hematology and Cell countson 12-07-2023 HbA1c (Bld) [Mass fraction] 7.5 % 4.2-6.3 [facility] No Panel InformationOrdered By: Fransisco Lawson on 12-07-2023 Estimated Creatinine Clearance Calc 21.05 ml/min [facility] Estimated GFR (MDRD) Amer 18 mL/min >60 [facility] Comment on above: GFR Calc Estimated GFR (MDRD) Non-Af Amer 15 mL/min >60 [facility] Comment on above: Non- GFR Calc No Panel InformationOrdered By: Grisel Timmons on 12-07-2023 Estimated GFR (MDRD) Amer 17 mL/min >60 [facility] Comment on above: GFR Calc Estimated GFR (MDRD) Non-Af Amer 14 mL/min >60 [facility] Comment on above: Non- GFR Calc RBC Auto (Bld) [#/Vol]Ordere d By: Fransisco Lawson on 12-07-2023 RBC (Bld) [#/Vol] 2.82 10*6/uL 4.6-6.2 [facility] Serum or plasma calcium abhi urement (mass/volume)Ordered By: Fransisco Lwason on 12-07-2023 Calcium [Mass/Vol] 7.7 mg/dL 8.5-10.1 [facility] Serum or plasma calcium abhi urement (mass/volume)Ordered By: Grisel Timmons on 12-07-2023 Calcium [Mass/Vol] 8.9 mg/dL 8.5-10.1 [facility] Serum or plasma creatinine m easurement (mass/volume)Ordered By: Fransisco Lawson on 12-07-2023 Creatinine [Mass/Vol] 4.39 mg/dL 0.70-1.30 [facility] Comment on above: The validity of the calculated GFR & GFRAA in patients over 70 years has not been determined. Clinical correlation is essential. Serum or plasma creatinine m easurement (mass/volume)Ordered By: Grisel Timmons on 12-07-2023 Creatinine [Mass/Vol] 4.57 mg/dL 0.70-1.30 [facility] Comment on above: The validity of the calculated GFR & GFRAA in patients over 70 years has not been determined. Clinical correlation is essential. Serum or plasma urea nitroge n measurement (mass/volume)Ordered By: Fransisco Lawson on 12-07-2023 Urea nitrogen [Mass/Vol] 39 mg/dL 03-14 [facility] Serum or plasma urea nitroge n measurement (mass/volume)Ordered By: Grisel Timmons on 12-07-2023 Urea nitrogen [Mass/Vol] 39 mg/dL 03-14 [facility] Thin prep Papanicolaou smear with manual screeningOrdered By: Fransisco Lawson on 12-07-2023 Thin prep Papanicolaou smear with manual screening 3 - [facility] Thin prep Papanicolaou smear with manual screeningOrdered By: Grisel Timmons on 12-07-2023 Thin prep Papanicolaou smear with manual screening 2.7 g/dL 3.2-5.0 [facility] Thin prep Papanicolaou smear with manual screening 9 U/L 15-37 [facility] Thin prep Papanicolaou smear with manual screening 3 - [facility] Absolute lymphocyte countOrd ered By: Jimmie Ibarra on 11-30-2023 Lymphocytes Auto (Unsp spec) [#/Vol] 1.69 10*3/uL 0.83-4.51 [facility] Automated lymphocyte count a s percentage of total leukocytesOrdered By: Jimmie Ibarra on 11-30-2023 Lymphocytes/100 WBC Auto (Unsp spec) 36.9 % 19-41 [facility] Basophil percentageOrdered B y: Jimmie Ibarra on 11-30-2023 Basophils/100 WBC (Bld) 0.9 % 0-1 [facility] Bilirubin [Mass/Vol] 0.30 mg/dL 0.20-1.00 [facility] Comment on above: For patients on eltr ombopag therapy, use of Dimension [place] TBIL is not recommended. Chloride [Moles/Vol] 111 mmol/L 98-107 [facility] Eosinophils/100 WBC (Bld) 2.2 % 0-5 [facility] Glucose [Mass/Vol] 133 mg/dL 74-106 [facility] Comment on above: Fasting Glucose resu lt greater than or equal to 126 mg/dL suggests DIABETES MELLITUS per A.D.A. criteria. Hemoglobin (Bld) [Mass/Vol] 8.3 g/dL 13.0-16.5 [facility] LDH [Catalytic activity/Vol] 175 U/L 87-241 [facility] Monocytes/100 WBC (Bld) 6.1 % 0-10 [facility] Neutrophils (Bld) [#/Vol] 2.4 10*3/uL 2.0-7.7 [facility] Neutrophils/100 WBC (Bld) 53.0 % 47-70 [facility] Potassium [Moles/Vol] 4.8 mmol/L 3.5-5.1 [facility] Protein [Mass/Vol] 5.9 g/dL 6.4-8.2 [facility] Sodium [Moles/Vol] 137 mmol/L 136-145 [facility] WBC (Bld) [#/Vol] 4.6 10*3/uL 4.4-11.0 [facility] Determination of erythrocyte mean corpuscular volume (MCV)Ordered By: Jimmie Ibarra on 11-30-2023 MCV (RBC) [Entitic vol] 91.4 fL 80-94 [facility] Erythrocyte distribution wid th ratioOrdered By: Jimmie Ibarra on 11-30-2023 Erythrocyte distribution width (RBC) [Ratio] 13.2 % 11.6-14.6 [facility] Erythrocyte distribution wid th standard deviationOrdered By: Jimmie Ibarra on 11-30-2023 Erythrocyte distribution width (RBC) [Entitic vol] 43.7 fL 35.1-43.9 [facility] Hematocrit Auto (Bld) [Volum e fraction]Ordered By: Jimmie Ibarra on 11-30-2023 Hematocrit (Bld) [Volume fraction] 25.5 % 40-54 [facility] Immature granulocytes/100 WB C Auto (Bld)Ordered By: [facility] on 11-30-2023 Immature granulocytes/100 WBC (Bld) 0.900 % 0.0-0.9 [facility] Comment on above: IG% - Immature Granu locytes (promyelocytes, myelocytes and metamyelocytes) > 1% indicates that a LEFT SHIFT is Present. Iron measurement (mass/mass) Ordered By: Jimmie Ibarra on 11-30-2023 Iron (Unsp spec) [Mass/Mass] 81 ug/dL 65-175 [facility] Laboratory - Chemistry and C hemistry - challengeOrdered By: [facility] on 11-30-2023 Albumin/Globulin [Mass ratio] 0.6 {ratio} 0.9-2.4 [facility] ALP [Catalytic activity/Vol] 63 U/L 45-117 [facility] ALT [Catalytic activity/Vol] 11 U/L 16-61 [facility] CO2 [Moles/Vol] 20.0 mmol/L 21.0-32.0 [facility] Ferritin [Mass/Vol] 130 ng/mL 26-388 [facility] Globulin (S) [Mass/Vol] 3.6 g/dL 2.2-4.2 [facility] Urea nitrogen/Creatinine [Mass ratio] 10.5 mg/mg 10-20 [facility] - Hematology and Cell countsOrdered By: Jimmie Ibarra on 11-30-2023 MCH (RBC) [Entitic mass] 29.7 pg 27.0-32.0 [facility] MCHC (RBC) [Mass/Vol] 32.5 g/dL 32-36 [facility] Nucleated RBC/100 WBC (Bld) [Ratio] 0 % 0-5 [facility] Platelet mean volume (Bld) [Entitic vol] 10.0 fL 6.2-12.0 [facility] Platelets (Bld) [#/Vol] 160 10*3/uL 150-450 [facility] No Panel InformationOrdered By: Jimmie Ibarra on 11-30-2023 Estimated Creatinine Clearance Calc 21.02 ml/min [facility] Estimated GFR (MDRD) Amer 18 mL/min >60 [facility] Comment on above: GFR Calc Estimated GFR (MDRD) Non-Af Amer 15 mL/min >60 [facility] Comment on above: Non- GFR Calc Total Iron Binding Capacity 254 ug/dL 250-450 [facility] RBC Auto (Bld) [#/Vol]Ordere d By: Jimmie Ibarra on 11-30-2023 RBC (Bld) [#/Vol] 2.79 10*6/uL 4.6-6.2 [facility] Serum or plasma calcium abhi urement (mass/volume)Ordered By: Jimmie Ibarra on 11-30-2023 Calcium [Mass/Vol] 8.1 mg/dL 8.5-10.1 [facility] Serum or plasma creatinine m easurement (mass/volume)Ordered By: Jimmie Ibarra on 11-30-2023 Creatinine [Mass/Vol] 4.40 mg/dL 0.70-1.30 [facility] Comment on above: The validity of the calculated GFR & GFRAA in patients over 70 years has not been determined. Clinical correlation is essential. Serum or plasma iron saturat ion measurement (mass fraction)Ordered By: Jimmie Ibarra on 11-30-2023 Iron saturation [Mass fraction] 31.9 % 15.0-55.0 [facility] Serum or plasma urea nitroge n measurement (mass/volume)Ordered By: Jimmie Ibarra on 11-30-2023 Urea nitrogen [Mass/Vol] 46 mg/dL 7-18 [facility] Thin prep Papanicolaou smear with manual screeningOrdered By: Jimmie Ibarra on 11-30-2023 Thin prep Papanicolaou smear with manual screening 2.3 g/dL 3.2-5.0 [facility] Thin prep Papanicolaou smear with manual screening 6 U/L 15-37 [facility] Thin prep Papanicolaou smear with manual screening 6 5-15 [facility] Vitamin B12 measurementOrder ed By: Jimmie Ibarra on 11-30-2023 Cobalamin (Vitamin B12) [Mass/Vol] 324 pg/mL 211-911 [facility] - Microbiology an d Antimicrobial susceptibilityOrdered By: Breanna Friedman on 10-16-2023 SARS-CoV-2 (COVID-19) RNA RAYMOND+probe Ql (Unsp spec) Influenzae A [facility] SARS-CoV-2 (COVID-19) RNA RAYMOND+probe Ql (Unsp spec) Influenzae A [facility] Basophil percentageOrdered B y: Jamaal Rm on 08-08-2023 Basophil percentage 4.3 mg/dL 2.5-4.9 [facility] Chloride [Moles/Vol] 107 mmol/L 98-107 [facility] Glucose [Mass/Vol] 216 mg/dL 74-106 [facility] Comment on above: Glucose result great er than or equal to 200 mg/dLsuggests DIABETES MELLITUS per A.D.A. criteria. Potassium [Moles/Vol] 4.0 mmol/L 3.5-5.1 [facility] Sodium [Moles/Vol] 135 mmol/L 136-145 [facility] WBC (Bld) [#/Vol] 6.4 10*3/uL 4.4-11.0 [facility] Blood erythrocytes count (nu mber/volume)Ordered By: Jamaal Rm on 08-08-2023 RBC (Bld) [#/Vol] 3.19 10*6/uL 4.6-6.2 [facility] Blood hemoglobin measurement (mass/volume)Ordered By: Jamaal Rm on 08-08-2023 Hemoglobin (Bld) [Mass/Vol] 9.9 g/dL 13.0-16.5 [facility] Blood platelet mean volumeOr dered By: Jamala Rm on 08-08-2023 Platelet mean volume (Bld) [Entitic vol] 9.8 fL 6.2-12.0 [facility] Determination of erythrocyte mean corpuscular volume (MCV)Ordered By: Jamaal Rm on 08-08-2023 MCV (RBC) [Entitic vol] 89.0 fL 80-94 [facility] Hematocrit Auto (Bld) [Volum e fraction]Ordered By: Jamaal Rm on 08-08-2023 Hematocrit (Bld) [Volume fraction] 28.4 % 40-54 [facility] - Chemistry and C hemistry - challengeOrdered By: Jamaal Rm on 08-08-2023 CO2 [Moles/Vol] 25.0 mmol/L 21.0-32.0 [facility] Urea nitrogen/Creatinine [Mass ratio] 10.8 mg/mg 10-20 [facility] - Hematology and Cell countsOrdered By: Jamaal Rm on 08-08-2023 Erythrocyte distribution width (RBC) [Entitic vol] 43.8 fL 35.1-43.9 [facility] Erythrocyte distribution width (RBC) [Ratio] 13.5 % 11.6-14.6 [facility] MCH (RBC) [Entitic mass] 31.0 pg 27.0-32.0 [facility] MCHC Auto (RBC) [Mass/Vol]Or dered By: Jamaal Rm on 08-08-2023 MCHC (RBC) [Mass/Vol] 34.9 g/dL 32-36 [facility] No Panel InformationOrdered By: Robb Paulson on 08-08-2023 Carbamazepine (Tegretol) Level 11.8 ug/mL 4.0-12.0 [facility] No Panel InformationOrdered By: Jamaal Rm on 08-08-2023 Estimated GFR (MDRD) Amer 26 mL/min >60 [facility] Comment on above: GFR Calc Estimated GFR (MDRD) Non-Af Amer 21 mL/min >60 [facility] Comment on above: Non- GFR Calc Parathyroid Hormone (Intact) 181.8 pg/mL 18.4-80.1 [facility] Urine Microalbumin/Creatinine Ratio 10469.7 mg/g CRE <30 [facility] Vitamin D 25-Hydroxy 7.4 ng/mL [facility] Comment on above: Vitamin D 25(OH) Sta tus Range Deficiency <20 ng/mL (50nmol/L) Insufficiency 20 - 30 ng/mL (50 - 75 nmol/L) Sufficiency 30 - 100 ng/mL (75 - 250 nmol/L) Toxicity >100 ng/mL (>250 nmol/L) Platelets bldOrdered By: Edwin Rm on 08-08-2023 Platelets (Bld) [#/Vol] 232 10*3/uL 150-450 [facility] Serum or plasma albumin abhi urement (mass/volume)Ordered By: Jamaal Rm on 08-08-2023 Albumin [Mass/Vol] 2.7 g/dL 3.2-5.0 [facility] Serum or plasma calcium abhi urement (mass/volume)Ordered By: Jamaal Rm on 08-08-2023 Calcium [Mass/Vol] 8.4 mg/dL 8.5-10.1 [facility] Serum or plasma creatinine m easurement (mass/volume)Ordered By: Jamaal Rm on 08-08-2023 Creatinine [Mass/Vol] 3.23 mg/dL 0.70-1.30 [facility] Comment on above: The validity of the calculated GFR & GFRAA in patients over 70 years has not been determined. Clinical correlation is essential. Serum or plasma urea nitroge n measurement (mass/volume)Ordered By: Jamaal Rm on 08-08-2023 Urea nitrogen [Mass/Vol] 35 mg/dL 7-18 [facility] Thin prep Papanicolaou smear with manual screeningOrdered By: Jamaal Rm on 08-08-2023 Thin prep Papanicolaou smear with manual screening 5420.0 mg/L NO RANGE EST. [facility] Urine creatinine measurement (mass/volume)Ordered By: Jamaal Rm on 08-08-2023 Creatinine (U) [Mass/Vol] 51.10 mg/dL NO RANGE EST. [facility] Urine protein measurement (m ass/volume)Ordered By: Jamaal Rm on 08-08-2023 Protein (U) [Mass/Vol] 654.7 mg/dL 0.0-11.8 [facility] Urine protein/creatinine mas s ratioOrdered By: Jamaal mR on 08-08-2023 Protein/Creatinine (U) [Mass ratio] 19115 mg/g CRE 0-200 [facility] Glucose Glucometer (dC) [M ass/Vol]Ordered By: Aquiles Warren on 08-02-2023 Glucose [Mass/Vol] 162 mg/dL 74-106 [facility] Comment on above: MANAGEMENT OF PATIEN T CARE PER NURSING PROTOCOL Absolute lymphocyte countOrd ered By: Aquiles Warren on 07-25-2023 Lymphocytes Auto (Unsp spec) [#/Vol] 1.82 10*3/uL 0.83-4.51 [facility] Albumin Elph [Mass/Vol]Order ed By: Aquiles Warren on 07-25-2023 Albumin [Mass/Vol] Not Reportable [facility] Basophil percentageOrdered B y: Aquiles Warren on 07-25-2023 Basophil percentage < 0.2 AI 0.0-0.9 [facility] Basophils/100 WBC (Bld) 0.6 % 0-1 [facility] Eosinophils/100 WBC (Bld) 1.4 % 0-5 [facility] Neutrophils (Bld) [#/Vol] 4.1 10*3/uL 2.0-7.7 [facility] Neutrophils/100 WBC (Bld) 63.0 % 47-70 [facility] Triglyceride [Mass/Vol] 2740 mg/dL <199 [facility] Comment on above: The drugs N-Acetylcy steine and Metamizole may falsely depress this assay. Slight Icterus, Result may be falsely increased. Serum Triglycerides Reference Interval Normal <150 mg/dL Borderline high 150 - 199 mg/dL High 200 - 499 mg/dL Very High > or = 500 mg/dL WBC (Bld) [#/Vol] 6.5 10*3/uL 4.4-11.0 [facility] Blood erythrocytes count (nu mber/volume)Ordered By: Aquiles Warren on 07-25-2023 RBC (Bld) [#/Vol] 3.18 10*6/uL 4.6-6.2 [facility] Blood hemoglobin measurement (mass/volume)Ordered By: Aquiles Warren on 07-25-2023 Hemoglobin (Bld) [Mass/Vol] 10.7 g/dL 13.0-16.5 [facility] Blood lymphocytes/100 leukoc ytesOrdered By: Aquiles Warren on 07-25-2023 Lymphocytes/100 WBC (Bld) 27.8 % 19-41 [facility] Blood monocytes/100 leukocyt esOrdered By: Aquiles Warren on 07-25-2023 Monocytes/100 WBC (Bld) 5.8 % 0-10 [facility] Blood platelet mean volumeOr dered By: Aquiles Warren on 07-25-2023 Platelet mean volume (Bld) [Entitic vol] 9.9 fL 6.2-12.0 [facility] Determination of erythrocyte mean corpuscular volume (MCV)Ordered By: Aquiles Warren on 07-25-2023 MCV (RBC) [Entitic vol] 91.8 fL 80-94 [facility] Erythrocyte sedimentation ra teOrdered By: Aquiles Warren on 07-25-2023 ESR (Bld) [Velocity] 7 mm/h 0-20 [facility] Hematocrit Auto (Bld) [Volum e fraction]Ordered By: Aquiles Warren on 07-25-2023 Hematocrit (Bld) [Volume fraction] 29.2 % 40-54 [facility] Hemoglobin in reticulocytes (mass per reticulocyte)Ordered By: Aquiles Warren on 07-25-2023 Hemoglobin (Reticulocytes) [Entitic mass] 34.4 pg 30-35 [facility] Interpretation of serum or p lasma protein pattern by immunofixation (narrative resultOrdered By: Aquiles Warren on 07-25-2023 Protein Fractions Immunofixation Rocco [Interp] Not Reportable [facility] Iron measurement (mass/mass) Ordered By: Aquiles Warren on 07-25-2023 Iron (Unsp spec) [Mass/Mass] 75 ug/dL 65-175 [facility] Laboratory - Chemistry and C hemistry - challengeOrdered By: Aquiles Warren on 07-25-2023 Cobalamin (Vitamin B12) [Mass/Vol] 483 pg/mL 211-911 [facility] - Hematology and Cell countsOrdered By: Aquiles Warren on 07-25-2023 Erythrocyte distribution width (RBC) [Entitic vol] 45.1 fL 35.1-43.9 [facility] Erythrocyte distribution width (RBC) [Ratio] 13.5 % 11.6-14.6 [facility] Immature granulocytes/100 WBC (Bld) 1.400 % 0.0-0.9 [facility] Comment on above: IG% - Immature Granu locytes (promyelocytes, myelocytes and metamyelocytes) > 1% indicates that a LEFT SHIFT is Present. MCH (RBC) [Entitic mass] 33.6 pg 27.0-32.0 [facility] Nucleated RBC/100 WBC (Bld) [Ratio] 0 % 0-5 [facility] MCHC Auto (RBC) [Mass/Vol]Or dered By: Aquiles Warren on 07-25-2023 MCHC (RBC) [Mass/Vol] 36.6 g/dL 32-36 [facility] No Panel InformationOrdered By: Aquiles Warren on 07-25-2023 Centromere B Antibody <0.2 AI 0.0-0.9 [facility] Immature Reticulocyte Fraction 16.20 % 3.00-15.90 [facility] Immunoglobulin E See comment [facility] Comment on above: TEST RESULTS LIMITSI mmunoglobulin E, Total 5 Low IU/mL 6-495 TESTING PERFORMED AT [facility]. ORIGINAL REPORT ON FILE IN LAB CONTAINS ADDITIONAL TEST SITE INFORMATION. Immunoglobulin G4 Not Reportable [facility] Reticulocyte Count 1.84 % 0.5-1.5 [facility] [employer] Antibody <0.2 AI 0.0-0.9 [facility] Thyroid Stimulating Hormone (TSH) 1.44 uIU/mL 0.358-3.74 [facility] Total Iron Binding Capacity 232 ug/dL 250-450 [facility] Platelets bldOrdered By: Leonel Warren on 07-25-2023 Platelets (Bld) [#/Vol] 212 10*3/uL 150-450 [facility] Serum DNA double strand anti body assay (units/volume)Ordered By: Aquiles Warren on 07-25-2023 DNA double strand Ab Qn (S) [IU]/mL 0-9 [facility] Comment on above: Negative <5 Equivoca l 5 - 9 Positive >9 Serum IgG subclass 1 measure ment (mass/volume)Ordered By: Aquiles Warren on 07-25-2023 IgG subclass 1 (S) [Mass/Vol] Not Reportable [facility] Serum IgG subclass 2 measure ment (mass/volume)Ordered By: Aquiles Warren on 07-25-2023 IgG subclass 2 (S) [Mass/Vol] Not Reportable [facility] Serum IgG subclass 3 measure ment (mass/volume)Ordered By: Aquiles Warren on 07-25-2023 IgG subclass 3 (S) [Mass/Vol] Not Reportable [facility] Serum Anastasia-1 antibody assay (u nits/volume)Ordered By: Aquiles Warren on 07-25-2023 Anastasia-1 extractable nuclear Ab Qn (S) <0.2 AI 0.0-0.9 [facility] Serum Scl-70 extractable nuc lear antibody assay (units/volume)Ordered By: Aquiles Warren on 07-25-2023 SCL-70 extractable nuclear Ab Qn (S) <0.2 AI 0.0-0.9 [facility] Serum Albarran extractable nucl ear antibody detectionOrdered By: Aquiles Warren on 07-25-2023 Albarran extractable nuclear Ab Ql (S) <0.2 AI 0.0-0.9 [facility] Serum [id number]-[id number] measu rement by electrophoresisOrdered By: Aquiles Warren on 07-25-2023 Alpha 1 globulin Elph [Mass/Vol] Not Reportable [facility] Serum or plasma C reactive p rotein measurement (mass/volume)Ordered By: Aquiles Warren on 07-25-2023 CRP [Mass/Vol] 15.30 mg/L 0.0-3.0 [facility] Comment on above: C-Reactive Protein ( CRP) provides useful information for thediagnosis, therapy and monitoring of inflammatory processesand associated diseases. For the evaluation of Relative Riskfor Cardiovascular Disease, a High Sensitivity CRP (HSCRP)should be ordered. Serum or plasma IgA measurem ent (mass/volume)Ordered By: Aquiles Warren on 07-25-2023 IgA [Mass/Vol] Not Reportable [facility] Serum or plasma IgG measurem ent (mass/volume)Ordered By: Aquiles Warren on 07-25-2023 IgG [Mass/Vol] See comment [facility] Comment on above: TEST RESULTS LIMITS IgG, Subclasses(1-4)IgG, Subclass 1 282 mg/dL 248-810IgG, Subclass 2 114 Low mg/dL 130-555IgG, Subclass 3 33 mg/dL 15-102IgG, Subclass 4 11 mg/dL 2-96 TESTING PERFORMED AT [facility]. ORIGINAL REPORT ON FILE IN LAB CONTAINS ADDITIONAL TEST SITE INFORMATION. IgG [Mass/Vol] Not Reportable [facility] Serum or plasma IgM measurem ent (mass/volume)Ordered By: Aquiles Warren on 07-25-2023 IgM [Mass/Vol] Not Reportable [facility] Serum or plasma beta globuli n measurement by electrophoresis (mass/volume)Ordered By: Aquiles Warren on 07-25-2023 Beta globulin Elph [Mass/Vol] Not Reportable [facility] Serum or plasma ferritin ngozi surement (mass/volume)Ordered By: Aquiles Warren on 07-25-2023 Ferritin [Mass/Vol] 187 ng/mL 26-388 [facility] Serum or plasma gamma globul in measurement by electrophoresis (mass/volume)Ordered By: Aquiles Kelvin on 07-25-2023 Gamma globulin Elph [Mass/Vol] Not Reportable [facility] Thin prep Papanicolaou smear with manual screeningOrdered By: Aquiles Friend on 07-25-2023 Thin prep Papanicolaou smear with manual screening Not Reportable [facility] Total protein bloodOrdered B y: Aquiles Friend on 07-25-2023 Protein [Mass/Vol] See comment [facility] Comment on above: TEST RESULTS LIMITSI FE and PE, SerumImmunoglobulin G, Qn,Serum 762 mg/dL [id number] M, Qn,Serum 87 mg/dL 20-172Protein, Total 5.6 Low g/dL 6.0-8.5Albumin 2.7 Low g/dL 2.9-4.2Mjsgj-9-Scteojyy 0.2 g/dL 0.0-0.9Kcxee-4-Dststsks 1.1 High g/dL 0.4-1.0Beta Globulin 0.9 g/dL 0.7-1.3Gamma Globulin 0.7 g/dL 2.2-3.9A/G Ratio 1.0 0.7-1.7Immunofixation Result,Serum Comment:Presence of monoclonal protein is unclear at this time. Suggest repeat in 3 to 6 months if clinically indicated.Please note: Protein electrophoresis scan will follow via computer, mail, or chicken hatchery helper delivery. TESTING PERFORMED AT [facility]. ORIGINAL REPORT ON FILE IN LAB CONTAINS ADDITIONAL TEST SITE INFORMATION. HEMOGLOBIN A1C (POC)on 06-23 HbA1c (Bld) [Mass fraction] 7.6 % Abnormal 4.2 - 5.6 % [facility] Absolute lymphocyte countOrd ered By: So Donaldson on 05-25-2023 Lymphocytes Auto (Unsp spec) [#/Vol] 1.43 10*3/uL 0.83-4.51 [facility] Absolute lymphocyte countOrd ered By: Maureen Shannan on 05-25-2023 Lymphocytes Auto (Unsp spec) [#/Vol] 1.51 10*3/uL 0.83-4.51 [facility] Basophil percentageOrdered B y: So Donaldson on 05-25-2023 Basophil percentage 0 SEEN /hpf 0-5 [facility] Basophils/100 WBC (Bld) 0.6 % 0-1 [facility] Chloride [Moles/Vol] 105 mmol/L 98-107 [facility] Eosinophils/100 WBC (Bld) 1.5 % 0-5 [facility] Glucose [Mass/Vol] 353 mg/dL 74-106 [facility] Comment on above: Glucose result great er than or equal to 200 mg/dLsuggests DIABETES MELLITUS per A.D.A. criteria. Neutrophils (Bld) [#/Vol] 2.9 10*3/uL 2.0-7.7 [facility] Neutrophils/100 WBC (Bld) 60.4 % 47-70 [facility] Potassium [Moles/Vol] 4.5 mmol/L 3.5-5.1 [facility] Sodium [Moles/Vol] 133 mmol/L 136-145 [facility] WBC (Bld) [#/Vol] 4.7 10*3/uL 4.4-11.0 [facility] Basophil percentageOrdered B y: Maureen Campbell on 05-25-2023 Basophils/100 WBC (Bld) 0.8 % 0-1 [facility] Bilirubin [Mass/Vol] 0.20 mg/dL 0.20-1.00 [facility] Comment on above: For patients on eltr ombopag therapy, use of Dimension [place] TBIL is not recommended. Chloride [Moles/Vol] 104 mmol/L 98-107 [facility] Eosinophils/100 WBC (Bld) 1.6 % 0-5 [facility] Glucose [Mass/Vol] 426 mg/dL 74-106 [facility] Comment on above: Glucose result great er than or equal to 200 mg/dLsuggests DIABETES MELLITUS per A.D.A. criteria. Neutrophils (Bld) [#/Vol] 3.0 10*3/uL 2.0-7.7 [facility] Neutrophils/100 WBC (Bld) 59.4 % 47-70 [facility] Potassium [Moles/Vol] 4.4 mmol/L 3.5-5.1 [facility] Protein [Mass/Vol] 6.6 g/dL 6.4-8.2 [facility] Sodium [Moles/Vol] 133 mmol/L 136-145 [facility] WBC (Bld) [#/Vol] 5.0 10*3/uL 4.4-11.0 [facility] Bilirubin Test strip Ql (U)O rdered By: So Donaldson on 05-25-2023 Bilirubin Ql (U) Negative Negative [facility] Blood erythrocytes count (nu mber/volume)Ordered By: So Donaldson on 05-25-2023 RBC (Bld) [#/Vol] 2.95 10*6/uL 4.6-6.2 [facility] Blood erythrocytes count (nu mber/volume)Ordered By: Maureen Campbell on 05-25-2023 RBC (Bld) [#/Vol] 3.09 10*6/uL 4.6-6.2 [facility] Blood hemoglobin measurement (mass/volume)Ordered By: So Donaldson on 05-25-2023 Hemoglobin (Bld) [Mass/Vol] 9.3 g/dL 13.0-16.5 [facility] Blood hemoglobin measurement (mass/volume)Ordered By: Maureen Campbell on 05-25-2023 Hemoglobin (Bld) [Mass/Vol] 9.5 g/dL 13.0-16.5 [facility] Blood lymphocytes/100 leukoc ytesOrdered By: So Donaldson on 05-25-2023 Lymphocytes/100 WBC (Bld) 30.3 % 19-41 [facility] Blood lymphocytes/100 leukoc ytesOrdered By: Maureen Campbell on 05-25-2023 Lymphocytes/100 WBC (Bld) 30.0 % 19-41 [facility] Blood monocytes/100 leukocyt esOrdered By: So Donaldson on 05-25-2023 Monocytes/100 WBC (Bld) 6.8 % 0-10 [facility] Blood monocytes/100 leukocyt esOrdered By: Maureen Campbell on 05-25-2023 Monocytes/100 WBC (Bld) 7.2 % 0-10 [facility] Blood platelet mean volumeOr dered By: So Donaldson on 05-25-2023 Platelet mean volume (Bld) [Entitic vol] 9.9 fL 6.2-12.0 [facility] Blood platelet mean volumeOr dered By: Maureen Campbell on 05-25-2023 Platelet mean volume (Bld) [Entitic vol] 10.2 fL 6.2-12.0 [facility] Determination of erythrocyte mean corpuscular volume (MCV)Ordered By: So Donaldson on 05-25-2023 MCV (RBC) [Entitic vol] 89.2 fL 80-94 [facility] Determination of erythrocyte mean corpuscular volume (MCV)Ordered By: Maureen Campbell on 05-25-2023 MCV (RBC) [Entitic vol] 90.3 fL 80-94 [facility] Hematocrit Auto (Bld) [Volum e fraction]Ordered By: So Donaldson on 05-25-2023 Hematocrit (Bld) [Volume fraction] 26.3 % 40-54 [facility] Hematocrit Auto (Bld) [Volum e fraction]Ordered By: Maureen Campbell on 05-25-2023 Hematocrit (Bld) [Volume fraction] 27.9 % 40-54 [facility] Ketones Test strip Ql (U)Ord ered By: So Donaldson on 05-25-2023 Ketones Ql (U) Negative Negative [facility] - Chemistry and C hemistry - challengeOrdered By: So Donaldson on 05-25-2023 CO2 [Moles/Vol] 22.0 mmol/L 21.0-32.0 [facility] Urea nitrogen/Creatinine [Mass ratio] 13.4 mg/mg 10-20 [facility] - Chemistry and C hemistry - challengeOrdered By: Maureen Campbell on 05-25-2023 ALP [Catalytic activity/Vol] 65 U/L 45-117 [facility] ALT [Catalytic activity/Vol] 22 U/L 16-61 [facility] CO2 [Moles/Vol] 23.0 mmol/L 21.0-32.0 [facility] Globulin (S) [Mass/Vol] 3.9 g/dL 2.2-4.2 [facility] Urea nitrogen/Creatinine [Mass ratio] 12.5 mg/mg 06-16 [facility] - Hematology and Cell countsOrdered By: So Donaldson on 05-25-2023 Erythrocyte distribution width (RBC) [Entitic vol] 43.8 fL 35.1-43.9 [facility] Erythrocyte distribution width (RBC) [Ratio] 13.3 % 11.6-14.6 [facility] Immature granulocytes/100 WBC (Bld) 0.400 % 0.0-0.9 [facility] Comment on above: IG% - Immature Granu locytes (promyelocytes, myelocytes and metamyelocytes) > 1% indicates that a LEFT SHIFT is Present. MCH (RBC) [Entitic mass] 31.5 pg 27.0-32.0 [facility] Nucleated RBC/100 WBC (Bld) [Ratio] 0 % 0-5 [facility] - Hematology and Cell countsOrdered By: Maureen Campbell on 05-25-2023 Erythrocyte distribution width (RBC) [Entitic vol] 44.4 fL 35.1-43.9 [facility] Erythrocyte distribution width (RBC) [Ratio] 13.5 % 11.6-14.6 [facility] Immature granulocytes/100 WBC (Bld) 1.000 % 0.0-0.9 [facility] Comment on above: IG% - Immature Granu locytes (promyelocytes, myelocytes and metamyelocytes) > 1% indicates that a LEFT SHIFT is Present. MCH (RBC) [Entitic mass] 30.7 pg 27.0-32.0 [facility] Nucleated RBC/100 WBC (Bld) [Ratio] 0 % 0-5 [facility] MCHC Auto (RBC) [Mass/Vol]Or dered By: So Donaldson on 05-25-2023 MCHC (RBC) [Mass/Vol] 35.4 g/dL - [facility] MCHC Auto (RBC) [Mass/Vol]Or dered By: Maureen Campbell on 05-25-2023 MCHC (RBC) [Mass/Vol] 34.1 g/dL -36 [facility] Mucus LM Ql (Urine sed)Order ed By: So Donaldson on 05-25-2023 Mucus Ql (Urine sed) 0 SEEN /hpf [facility] Nitrite Test strip Ql (U)Ord ered By: So Donaldson on 05-25-2023 Nitrite Ql (U) Negative Negative [facility] No Panel InformationOrdered By: So Donaldson on 05-25-2023 Estimated Creatinine Clearance Calc 29.49 ml/min [facility] Estimated GFR (MDRD) Amer 31 mL/min >60 [facility] Comment on above: GFR Calc Estimated GFR (MDRD) Non-Af Amer 26 mL/min >60 [facility] Comment on above: Non- GFR Calc No Panel InformationOrdered By: Maureen Campbell on 05-25-2023 Estimated Creatinine Clearance Calc 27.51 ml/min [facility] Estimated GFR (MDRD) Amer 28 mL/min >60 [facility] Comment on above: GFR Calc Estimated GFR (MDRD) Non-Af Amer 24 mL/min >60 [facility] Comment on above: Non- GFR Calc Platelets bldOrdered By: Ludmila Donaldson on 05-25-2023 Platelets (Bld) [#/Vol] 135 10*3/uL 150-450 [facility] Platelets bldOrdered By: Georgina Campbell on 05-25-2023 Platelets (Bld) [#/Vol] 153 10*3/uL 150-450 [facility] Protein Test strip Ql (U)Ord ered By: So Donaldson on 05-25-2023 Protein Ql (U) 500 mg/dl Negative [facility] Serum or plasma albumin abhi urement (mass/volume)Ordered By: Maureen Campbell on 05-25-2023 Albumin [Mass/Vol] 2.7 g/dL 3.2-5.0 [facility] Serum or plasma albumin/glob ulin mass ratioOrdered By: Maureen Campbell on 05-25-2023 Albumin/Globulin [Mass ratio] 0.7 {ratio} 0.9-2.4 [facility] Serum or plasma calcium abhi urement (mass/volume)Ordered By: So Donaldson on 05-25-2023 Calcium [Mass/Vol] 7.5 mg/dL 8.5-10.1 [facility] Serum or plasma calcium abhi urement (mass/volume)Ordered By: Maureen Campbell on 05-25-2023 Calcium [Mass/Vol] 7.8 mg/dL 8.5-10.1 [facility] Serum or plasma creatinine m easurement (mass/volume)Ordered By: So Donaldson on 05-25-2023 Creatinine [Mass/Vol] 2.77 mg/dL 0.70-1.30 [facility] Comment on above: The validity of the calculated GFR & GFRAA in patients over 70 years has not been determined. Clinical correlation is essential. Serum or plasma creatinine m easurement (mass/volume)Ordered By: Maureen Campbell on 05-25-2023 Creatinine [Mass/Vol] 2.97 mg/dL 0.70-1.30 [facility] Comment on above: The validity of the calculated GFR & GFRAA in patients over 70 years has not been determined. Clinical correlation is essential. Serum or plasma urea nitroge n measurement (mass/volume)Ordered By: So Donaldson on 05-25-2023 Urea nitrogen [Mass/Vol] 37 mg/dL 03-14 [facility] Serum or plasma urea nitroge n measurement (mass/volume)Ordered By: Maureen Campbell on 05-25-2023 Urea nitrogen [Mass/Vol] 37 mg/dL 03-14 [facility] Squamous epithelial cells de tection in urine sediment by light microscopyOrdered By: So Donaldson on 05-25-2023 Epithelial cells.squamous LM Ql (Urine sed) 0 SEEN /hpf 0-5 [facility] Thin prep Papanicolaou smear with manual screeningOrdered By: So Donaldson on 05-25-2023 Thin prep Papanicolaou smear with manual screening 6 5-15 [facility] Thin prep Papanicolaou smear with manual screeningOrdered By: Maureen Campbell on 05-25-2023 Thin prep Papanicolaou smear with manual screening 9 U/L 15-37 [facility] Thin prep Papanicolaou smear with manual screening 6 5-15 [facility] Urine blood detectionOrdered By: So Donaldson on 05-25-2023 RBC Ql (U) 25 /ul Negative [facility] RBC Ql (U) 0 SEEN /hpf 0-5 [facility] Urine clarityOrdered By: Ludmila Donaldson on 05-25-2023 Clarity (U) Clear Clear [facility] Urine color determinationOrd ered By: So Donaldson on 05-25-2023 Color (U) Yellow Yellow [facility] Urine glucose detectionOrder ed By: So Donaldson on 05-25-2023 Glucose Ql (U) 1000 mg/dl Normal [facility] Urine leukocyte esterase det ection by dipstickOrdered By: So Donaldson on 05-25-2023 Leukocyte esterase Test strip Ql (U) Negative Negative [facility] Urine pHOrdered By: So Donaldson on 05-25-2023 pH (U) 6.0 [pH] 5.0 - 8.0 [facility] Urine sediment bacteria coun t by microscopy (number/high power field)Ordered By: So Donaldson on 05-25-2023 Bacteria LM.HPF (Urine sed) [#/Area] 0 /[HPF] None Seen [facility] Urine specific gravity measu rementOrdered By: So Donaldson on 05-25-2023 Specific gravity (U) [Rel density] 1.015 1.002-1.030 [facility] Urobilinogen Auto test strip Ql (U)Ordered By: So Donaldson on 05-25-2023 Urobilinogen Ql (U) Normal mg/dl Normal [facility] Iron measurement (mass/mass) Ordered By: Maureen Campbell on 05-11-2023 Iron (Unsp spec) [Mass/Mass] 85 ug/dL 65-175 [facility] No Panel InformationOrdered By: Maureen Campbell on 05-11-2023 Total Iron Binding Capacity 269 ug/dL 250-450 [facility] Serum or plasma ferritin ngozi surement (mass/volume)Ordered By: Maureen Campbell on 05-11-2023 Ferritin [Mass/Vol] 70 ng/mL 26-388 [facility] Serum or plasma iron saturat ion measurement (mass fraction)Ordered By: Maureen Campbell on 05-11-2023 Iron saturation [Mass fraction] 31.6 % 15.0-55.0 [facility] - Hematology and Cell countson 05-03-2023 HbA1c (Bld) [Mass fraction] 7.2 % 4.2-6.3 [facility] Basophil percentageOrdered B y: Jamaal Rm on 03-24-2023 Basophil percentage 3.9 mg/dL 2.5-4.9 [facility] Chloride [Moles/Vol] 106 mmol/L 98-107 [facility] Glucose [Mass/Vol] 213 mg/dL 74-106 [facility] Comment on above: Glucose result great er than or equal to 200 mg/dLsuggests DIABETES MELLITUS per A.D.A. criteria. Potassium [Moles/Vol] 5.0 mmol/L 3.5-5.1 [facility] Sodium [Moles/Vol] 135 mmol/L 136-145 [facility] WBC (Bld) [#/Vol] 5.0 10*3/uL 4.4-11.0 [facility] Blood erythrocytes count (nu mber/volume)Ordered By: Jamaal Rm on 03-24-2023 RBC (Bld) [#/Vol] 3.11 10*6/uL 4.6-6.2 [facility] Blood hemoglobin measurement (mass/volume)Ordered By: Jamaal Rm on 03-24-2023 Hemoglobin (Bld) [Mass/Vol] 9.2 g/dL 13.0-16.5 [facility] Blood platelet mean volumeOr dered By: Jamaal Rm on 03-24-2023 Platelet mean volume (Bld) [Entitic vol] 10.4 fL 6.2-12.0 [facility] Determination of erythrocyte mean corpuscular volume (MCV)Ordered By: Jamaal Rm on 03-24-2023 MCV (RBC) [Entitic vol] 89.7 fL 80-94 [facility] Hematocrit Auto (Bld) [Volum e fraction]Ordered By: Jamaal Rm on 03-24-2023 Hematocrit (Bld) [Volume fraction] 27.9 % 40-54 [facility] - Chemistry and C hemistry - challengeOrdered By: Jamaal Rm on 03-24-2023 CO2 [Moles/Vol] 23.0 mmol/L 21.0-32.0 [facility] Urea nitrogen/Creatinine [Mass ratio] 12.3 mg/mg 10-20 [facility] - Hematology and Cell countsOrdered By: Jamaal Rm on 03-24-2023 Erythrocyte distribution width (RBC) [Entitic vol] 43.5 fL 35.1-43.9 [facility] Erythrocyte distribution width (RBC) [Ratio] 13.3 % 11.6-14.6 [facility] MCH (RBC) [Entitic mass] 29.6 pg 27.0-32.0 [facility] MCHC Auto (RBC) [Mass/Vol]Or dered By: Jamaal Rm on 03-24-2023 MCHC (RBC) [Mass/Vol] 33.0 g/dL 32-36 [facility] No Panel InformationOrdered By: Jamaal Rm on 03-24-2023 Estimated GFR (MDRD) Amer 34 mL/min >60 [facility] Comment on above: GFR Calc Estimated GFR (MDRD) Non-Af Amer 28 mL/min >60 [facility] Comment on above: Non- GFR Calc Parathyroid Hormone (Intact) 131.0 pg/mL 18.4-80.1 [facility] Vitamin D 25-Hydroxy 11.8 ng/mL [facility] Comment on above: Vitamin D 25(OH) Sta tus Range Deficiency <20 ng/mL (50nmol/L) Insufficiency 20 - 30 ng/mL (50 - 75 nmol/L) Sufficiency 30 - 100 ng/mL (75 - 250 nmol/L) Toxicity >100 ng/mL (>250 nmol/L) Platelets bldOrdered By: Edwin Rm on 03-24-2023 Platelets (Bld) [#/Vol] 193 10*3/uL 150-450 [facility] Serum or plasma albumin abhi urement (mass/volume)Ordered By: Jamaal Rm on 03-24-2023 Albumin [Mass/Vol] 2.8 g/dL 3.2-5.0 [facility] Serum or plasma calcium abhi urement (mass/volume)Ordered By: Jamaal Rm on 03-24-2023 Calcium [Mass/Vol] 8.7 mg/dL 8.5-10.1 [facility] Serum or plasma creatinine m easurement (mass/volume)Ordered By: Jamaal Rm on 03-24-2023 Creatinine [Mass/Vol] 2.52 mg/dL 0.70-1.30 [facility] Comment on above: The validity of the calculated GFR & GFRAA in patients over 70 years has not been determined. Clinical correlation is essential. Serum or plasma urea nitroge n measurement (mass/volume)Ordered By: Jamaal Rm on 03-24-2023 Urea nitrogen [Mass/Vol] 31 mg/dL 7-18 [facility] Urine creatinine measurement (mass/volume)Ordered By: Jamaal Rm on 03-24-2023 Creatinine (U) [Mass/Vol] 119.00 mg/dL NO RANGE EST. [facility] Urine protein measurement (m ass/volume)Ordered By: Jamaal Rm on 03-24-2023 Protein (U) [Mass/Vol] 1186.0 mg/dL 0.0-11.8 [facility] Urine protein/creatinine mas s ratioOrdered By: Jamaal Rm on 03-24-2023 Protein/Creatinine (U) [Mass ratio] 9966 mg/g CRE 0-200 [facility] Absolute lymphocyte countOrd ered By: Maureen Campbell on 03-16-2023 Lymphocytes Auto (Unsp spec) [#/Vol] 2.01 10*3/uL 0.83-4.51 [facility] Basophil percentageOrdered B y: Maureen Campbell on 03-16-2023 Basophils/100 WBC (Bld) 0.7 % 0-1 [facility] Bilirubin [Mass/Vol] 0.20 mg/dL 0.20-1.00 [facility] Comment on above: For patients on eltr ombopag therapy, use of Dimension [place] TBIL is not recommended. Chloride [Moles/Vol] 107 mmol/L 98-107 [facility] Eosinophils/100 WBC (Bld) 1.2 % 0-5 [facility] Glucose [Mass/Vol] 112 mg/dL 74-106 [facility] Comment on above: Fasting Glucose resu lt from 100 to 125 mg/dL suggests IMPAIRED HOMEOSTASIS per A.D.A. criteria. Neutrophils (Bld) [#/Vol] 3.5 10*3/uL 2.0-7.7 [facility] Neutrophils/100 WBC (Bld) 58.0 % 47-70 [facility] Potassium [Moles/Vol] 4.9 mmol/L 3.5-5.1 [facility] Protein [Mass/Vol] 6.9 g/dL 6.4-8.2 [facility] Sodium [Moles/Vol] 137 mmol/L 136-145 [facility] WBC (Bld) [#/Vol] 6.0 10*3/uL 4.4-11.0 [facility] Blood erythrocytes count (nu mber/volume)Ordered By: Maureen Campbell on 03-16-2023 RBC (Bld) [#/Vol] 3.49 10*6/uL 4.6-6.2 [facility] Blood hemoglobin measurement (mass/volume)Ordered By: Maureen Campbell on 03-16-2023 Hemoglobin (Bld) [Mass/Vol] 10.2 g/dL 13.0-16.5 [facility] Blood lymphocytes/100 leukoc ytesOrdered By: Maureen Campbell on 03-16-2023 Lymphocytes/100 WBC (Bld) 33.6 % 19-41 [facility] Blood monocytes/100 leukocyt esOrdered By: Maureen Campbell on 03-16-2023 Monocytes/100 WBC (Bld) 5.7 % 0-10 [facility] Blood platelet mean volumeOr dered By: Maureen Campbell on 03-16-2023 Platelet mean volume (Bld) [Entitic vol] 10.0 fL 6.2-12.0 [facility] Determination of erythrocyte mean corpuscular volume (MCV)Ordered By: Maureen Campbell on 03-16-2023 MCV (RBC) [Entitic vol] 88.5 fL 80-94 [facility] Hematocrit Auto (Bld) [Volum e fraction]Ordered By: Maureen Campbell on 03-16-2023 Hematocrit (Bld) [Volume fraction] 30.9 % 40-54 [facility] Iron measurement (mass/mass) Ordered By: Maureen Campbell on 03-16-2023 Iron (Unsp spec) [Mass/Mass] 122 ug/dL 65-175 [facility] Laboratory - Chemistry and C hemistry - challengeOrdered By: Maureen Campbell on 03-16-2023 ALP [Catalytic activity/Vol] 62 U/L 45-117 [facility] ALT [Catalytic activity/Vol] 20 U/L 16-61 [facility] CO2 [Moles/Vol] 22.0 mmol/L 21.0-32.0 [facility] Globulin (S) [Mass/Vol] 4.0 g/dL 2.2-4.2 [facility] Urea nitrogen/Creatinine [Mass ratio] 15.5 mg/mg 10-20 [facility] Laboratory - Hematology and Cell countsOrdered By: Maureen Campbell on 03-16-2023 Erythrocyte distribution width (RBC) [Entitic vol] 44.9 fL 35.1-43.9 [facility] Erythrocyte distribution width (RBC) [Ratio] 14.0 % 11.6-14.6 [facility] Immature granulocytes/100 WBC (Bld) 0.800 % 0.0-0.9 [facility] Comment on above: IG% - Immature Granu locytes (promyelocytes, myelocytes and metamyelocytes) > 1% indicates that a LEFT SHIFT is Present. MCH (RBC) [Entitic mass] 29.2 pg 27.0-32.0 [facility] Nucleated RBC/100 WBC (Bld) [Ratio] 0 % 0-5 [facility] MCHC Auto (RBC) [Mass/Vol]Or dered By: Maureen Campbell on 03-16-2023 MCHC (RBC) [Mass/Vol] 33.0 g/dL 32-36 [facility] No Panel InformationOrdered By: Maureen Campbell on 03-16-2023 Estimated Creatinine Clearance Calc 32.42 ml/min [facility] Estimated GFR (MDRD) Amer 34 mL/min >60 [facility] Comment on above: GFR Calc Estimated GFR (MDRD) Non-Af Amer 28 mL/min >60 [facility] Comment on above: Non- GFR Calc Total Iron Binding Capacity 305 ug/dL 250-450 [facility] Platelets bldOrdered By: Georgina Campbell on 03-16-2023 Platelets (Bld) [#/Vol] 212 10*3/uL 150-450 [facility] Serum or plasma albumin abhi urement (mass/volume)Ordered By: Maureen Campbell on 03-16-2023 Albumin [Mass/Vol] 2.9 g/dL 3.2-5.0 [facility] Serum or plasma albumin/glob ulin mass ratioOrdered By: Maureen Campbell on 03-16-2023 Albumin/Globulin [Mass ratio] 0.7 {ratio} 0.9-2.4 [facility] Serum or plasma calcium abhi urement (mass/volume)Ordered By: Maureen Campbell on 03-16-2023 Calcium [Mass/Vol] 8.7 mg/dL 8.5-10.1 [facility] Serum or plasma carcinoembry onic antigen measurement (mass/volume)Ordered By: Maureen Campbell on 03-16-2023 Carcinoembryonic Ag [Mass/Vol] 1.4 ng/mL 0.0-4.7 [facility] Comment on above: Nonsmokers <3.9 Smok ers <5.6[employer] Electrochemiluminescence Immunoassay(ECLIA)Values obtained with different assay methods or kitscannot be used interchangeably. Results cannot beinterpreted as absolute evidence of the presence orabsence of malignant disease.Performed at: [employer] [id number] Director: Bradley Peña PhD, Phone: [phone] Serum or plasma creatinine m easurement (mass/volume)Ordered By: Maureen Campbell on 03-16-2023 Creatinine [Mass/Vol] 2.52 mg/dL 0.70-1.30 [facility] Comment on above: The validity of the calculated GFR & GFRAA in patients over 70 years has not been determined. Clinical correlation is essential. Serum or plasma ferritin ngozi surement (mass/volume)Ordered By: Maureen Campbell on 03-16-2023 Ferritin [Mass/Vol] 99 ng/mL 26-388 [facility] Serum or plasma iron saturat ion measurement (mass fraction)Ordered By: Maureen Campbell on 03-16-2023 Iron saturation [Mass fraction] 40.0 % 15.0-55.0 [facility] Serum or plasma urea nitroge n measurement (mass/volume)Ordered By: Maureen Campbell on 03-16-2023 Urea nitrogen [Mass/Vol] 39 mg/dL 7-18 [facility] Thin prep Papanicolaou smear with manual screeningOrdered By: Maureen Campbell on 03-16-2023 Thin prep Papanicolaou smear with manual screening 9 U/L 15-37 [facility] Thin prep Papanicolaou smear with manual screening 8 5-15 [facility] Basophil percentageOrdered B y: Jimmie Ibarra on 01-31-2023 LDH [Catalytic activity/Vol] 189 U/L 87-241 [facility] Comment on above: Slight Hemolysis, Re sult may be falsely increased. Whole blood hemoglobin A1c/t otal hemoglobin ratio (mass fraction)Ordered By: Grisel Timmons on 01-31-2023 HbA1c (Bld) [Mass fraction] 7.0 % High 3.8-5.6 [facility] Comment on above: Normal < 5.7 % Predi abetic 5.7 - 6.4 % Diabetic >or= 6.5 % Please note range changes. CBC W Auto Differential pane l (Bld)on 12-01-2022 Basophils (Bld) [#/Vol] <0.11 k/uL [facility] Basophils/100 WBC (Bld) 0.4 % [facility] Differential cell count method Nom (Bld) Auto [facility] Eosinophils (Bld) [#/Vol] 0.07 10*3/uL <0.46 k/uL [facility] Eosinophils/100 WBC (Bld) 1.3 % [facility] Erythrocyte distribution width (RBC) [Ratio] 15.1 % High 11.5 - 15.0 % [facility] Hematocrit (Bld) [Volume fraction] 26.2 % Low 39.0 - 51.0 % [facility] Hemoglobin (Bld) [Mass/Vol] 8.7 g/dL Low 13.0 - 17.0 g/dL [facility] Immature granulocytes (Bld) [#/Vol] 0.04 10*3/uL <0.10 k/uL [facility] Immature granulocytes/100 WBC (Bld) 0.7 % [facility] Lymphocytes (Bld) [#/Vol] 1.57 10*3/uL 1.00 - 4.00 k/uL [facility] Lymphocytes/100 WBC (Bld) 28.7 % [facility] MCH (RBC) [Entitic mass] 30.3 pg 26.0 - 34.0 pg [facility] MCHC (RBC) [Mass/Vol] 33.2 g/dL 30.5 - 36.0 g/dL [facility] MCV (RBC) [Entitic vol] 91.3 fL 80.0 - 100.0 fL [facility] Monocytes (Bld) [#/Vol] 0.39 10*3/uL <0.87 k/uL [facility] Monocytes/100 WBC (Bld) 7.1 % [facility] Neutrophils (Bld) [#/Vol] 3.38 10*3/uL 1.45 - 7.50 k/uL [facility] Neutrophils/100 WBC (Bld) 61.8 % [facility] Nucleated RBC (Bld) [#/Vol] <0.01 k/uL [facility] Nucleated RBC/100 WBC (Bld) [Ratio] 0.0 /100 WBC [facility] Platelet mean volume (Bld) [Entitic vol] 10.7 fL 9.0 - 12.7 fL [facility] Platelets (Bld) [#/Vol] 240 10*3/uL 150 - 400 k/uL [facility] RBC (Bld) [#/Vol] 2.87 10*6/uL Low 4.20 - 6.0 0 m/uL [facility] WBC (Bld) [#/Vol] 5.47 10*3/uL 3.70 - 11. 00 k/uL [facility] T3 FREE BLDon 12-01-2022 Free T3 [Mass/Vol] 2.5 pg/mL 2.3 - 4.1 pg/mL [facility] T4 FREE/FREE THYROXon 2022 Free T4 [Mass/Vol] 0.8 ng/dL Low 0.9 - 1.7 ng/dL [facility] Absolute lymphocyte countOrd ered By: Dr. Renae on 11-26-2022 Lymphocytes Auto (Unsp spec) [#/Vol] 1.60 10*3/uL 0.83-4.51 [facility] Basophil percentageOrdered B y: Dr. Renae on 11-26-2022 LDH [Catalytic activity/Vol] 159 U/L 87-241 [facility] Basophils/100 WBC (Bld) 0.4 % 0-1 [facility] Bilirubin [Mass/Vol] 0.20 mg/dL 0.20-1.00 [facility] Comment on above: For patients on eltr ombopag therapy, use of Dimension [place] TBIL is not recommended. Chloride [Moles/Vol] 108 mmol/L 98-107 [facility] Eosinophils/100 WBC (Bld) 1.5 % 0-5 [facility] Glucose [Mass/Vol] 228 mg/dL 74-106 [facility] Comment on above: Glucose result great er than or equal to 200 mg/dLsuggests DIABETES MELLITUS per A.D.A. criteria. Neutrophils (Bld) [#/Vol] 3.2 10*3/uL 2.0-7.7 [facility] Neutrophils/100 WBC (Bld) 60.6 % 47-70 [facility] Potassium [Moles/Vol] 4.5 mmol/L 3.5-5.1 [facility] Protein [Mass/Vol] 6.1 g/dL 6.4-8.2 [facility] Sodium [Moles/Vol] 135 mmol/L 136-145 [facility] WBC (Bld) [#/Vol] 5.2 10*3/uL 4.4-11.0 [facility] Blood erythrocytes count (nu mber/volume)Ordered By: Dr. Renae on 11-26-2022 RBC (Bld) [#/Vol] 2.59 10*6/uL 4.6-6.2 [facility] Blood hemoglobin measurement (mass/volume)Ordered By: Dr. Renae on 11-26-2022 Hemoglobin (Bld) [Mass/Vol] 7.8 g/dL 13.0-16.5 [facility] Blood lymphocytes/100 leukoc ytesOrdered By: Dr. Renae on 11-26-2022 Lymphocytes/100 WBC (Bld) 30.7 % 19-41 [facility] Blood monocytes/100 leukocyt esOrdered By: Dr. Renae on 11-26-2022 Monocytes/100 WBC (Bld) 6.0 % 0-10 [facility] Blood platelet mean volumeOr dered By: Dr. Renae on 11-26-2022 Platelet mean volume (Bld) [Entitic vol] 10.7 fL 6.2-12.0 [facility] Determination of erythrocyte mean corpuscular volume (MCV)Ordered By: Dr. Renae on 11-26-2022 MCV (RBC) [Entitic vol] 91.5 fL 80-94 [facility] Glucose Glucometer (dC) [M ass/Vol]Ordered By: Dr. Renae on 11-26-2022 Glucose [Mass/Vol] 272 mg/dL 74-106 [facility] Comment on above: MANAGEMENT OF PATIEN T CARE PER NURSING PROTOCOL Hematocrit Auto (Bld) [Volum e fraction]Ordered By: Dr. Renae on 11-26-2022 Hematocrit (Bld) [Volume fraction] 23.7 % 40-54 [facility] Hemoglobin in reticulocytes (mass per reticulocyte)Ordered By: Dr. Renae on 11-26-2022 Hemoglobin (Reticulocytes) [Entitic mass] 33.6 pg 30-35 [facility] Iron measurement (mass/mass) Ordered By: Dr. Renae on 11-26-2022 Iron (Unsp spec) [Mass/Mass] 60 ug/dL 65-175 [facility] Laboratory - Chemistry and C hemistry - challengeOrdered By: Dr. Renae on 11-26-2022 ALP [Catalytic activity/Vol] 64 U/L 45-117 [facility] ALT [Catalytic activity/Vol] 16 U/L 16-61 [facility] CO2 [Moles/Vol] 21.0 mmol/L 21.0-32.0 [facility] Globulin (S) [Mass/Vol] 3.4 g/dL 2.2-4.2 [facility] Urea nitrogen/Creatinine [Mass ratio] 16.1 mg/mg 10-20 [facility] Laboratory - Hematology and Cell countsOrdered By: Dr. Renae on 11-26-2022 Erythrocyte distribution width (RBC) [Entitic vol] 46.5 fL 35.1-43.9 [facility] Erythrocyte distribution width (RBC) [Ratio] 14.6 % 11.6-14.6 [facility] Immature granulocytes/100 WBC (Bld) 0.800 % 0.0-0.9 [facility] Comment on above: IG% - Immature Granu locytes (promyelocytes, myelocytes and metamyelocytes) > 1% indicates that a LEFT SHIFT is Present. MCH (RBC) [Entitic mass] 30.1 pg 27.0-32.0 [facility] Nucleated RBC/100 WBC (Bld) [Ratio] 0 % 0-5 [facility] MCHC Auto (RBC) [Mass/Vol]Or dered By: Dr. Renae on 11-26-2022 MCHC (RBC) [Mass/Vol] 32.9 g/dL 32-36 [facility] No Panel InformationOrdered By: Dr. Renae on 11-26-2022 Immature Reticulocyte Fraction 32.00 % 3.00-15.90 [facility] Reticulocyte Count 4.38 % 0.5-1.5 [facility] Total Iron Binding Capacity 296 ug/dL 250-450 [facility] Estimated Creatinine Clearance Calc 43.92 ml/min [facility] Estimated GFR (MDRD) Amer 49 mL/min >60 [facility] Comment on above: GFR Calc Estimated GFR (MDRD) Non-Af Amer 40 mL/min >60 [facility] Comment on above: Non- GFR Calc Platelets bldOrdered By: Dr. Renae on 11-26-2022 Platelets (Bld) [#/Vol] 159 10*3/uL 150-450 [facility] Serum or plasma albumin abhi urement (mass/volume)Ordered By: Dr. Renae on 11-26-2022 Albumin [Mass/Vol] 2.7 g/dL 3.2-5.0 [facility] Serum or plasma albumin/glob ulin mass ratioOrdered By: Dr. Renae on 11-26-2022 Albumin/Globulin [Mass ratio] 0.8 {ratio} 0.9-2.4 [facility] Serum or plasma calcium abhi urement (mass/volume)Ordered By: Dr. Renae on 11-26-2022 Calcium [Mass/Vol] 8.5 mg/dL 8.5-10.1 [facility] Serum or plasma creatinine m easurement (mass/volume)Ordered By: Dr. Renae on 11-26-2022 Creatinine [Mass/Vol] 1.86 mg/dL 0.70-1.30 [facility] Comment on above: The validity of the calculated GFR & GFRAA in patients over 70 years has not been determined. Clinical correlation is essential. Serum or plasma ferritin ngozi surement (mass/volume)Ordered By: Dr. Renae on 11-26-2022 Ferritin [Mass/Vol] 46 ng/mL 26-388 [facility] Serum or plasma urea nitroge n measurement (mass/volume)Ordered By: Dr. Renae on 11-26-2022 Urea nitrogen [Mass/Vol] 30 mg/dL 7-18 [facility] Thin prep Papanicolaou smear with manual screeningOrdered By: Dr. eRnae on 11-26-2022 Thin prep Papanicolaou smear with manual screening 13 U/L 15-37 [facility] Thin prep Papanicolaou smear with manual screening 6 5-15 [facility] No Panel InformationOrdered By: Dr. Renae on 11-25-2022 Carbamazepine (Tegretol) Level 7.3 ug/mL 4.0-12.0 [facility] Free Triiodothyronine (T3) pg/dL 1.9 pg/mL 2.18-3.98 [facility] Serum or plasma cortisol ngozi surement (mass/volume)Ordered By: Dr. Renae on 11-25-2022 Cortisol [Mass/Vol] 5.60 ug/dL 3.44-22.45 [facility] Comment on above: Adult (AM) 5.27 - 22 .45 ug/dL Adult (PM) 3.44 - 16.76 ug/dLPlease note revised CORTISOL reference range effective 2019. Laboratory - Chemistry and C hemistry - challengeOrdered By: Dr. Renae on 11-24-2022 Free T4 [Mass/Vol] 0.57 ng/dL 0.76-1.46 [facility] No Panel InformationOrdered By: Dr. Renae on 11-24-2022 Thyroid Stimulating Hormone (TSH) 0.35 uIU/mL 0.358-3.74 [facility] Absolute lymphocyte countOrd ered By: Dr. Hogan on 11-23-2022 Lymphocytes Auto (Unsp spec) [#/Vol] 1.19 10*3/uL 0.83-4.51 [facility] Basophil percentageOrdered B y: Dr. Hogan on 11-23-2022 Basophils/100 WBC (Bld) 0.4 % 0-1 [facility] Chloride [Moles/Vol] 108 mmol/L 98-107 [facility] Eosinophils/100 WBC (Bld) 1.5 % 0-5 [facility] Glucose [Mass/Vol] 336 mg/dL 74-106 [facility] Comment on above: Glucose result great er than or equal to 200 mg/dLsuggests DIABETES MELLITUS per A.D.A. criteria. Neutrophils (Bld) [#/Vol] 3.0 10*3/uL 2.0-7.7 [facility] Neutrophils/100 WBC (Bld) 65.2 % 47-70 [facility] Potassium [Moles/Vol] 5.1 mmol/L 3.5-5.1 [facility] Sodium [Moles/Vol] 134 mmol/L 136-145 [facility] WBC (Bld) [#/Vol] 4.6 10*3/uL 4.4-11.0 [facility] Blood erythrocytes count (nu mber/volume)Ordered By: Dr. Hogan on 11-23-2022 RBC (Bld) [#/Vol] 2.07 10*6/uL 4.6-6.2 [facility] Blood hemoglobin measurement (mass/volume)Ordered By: Dr. Hogan on 11-23-2022 Hemoglobin (Bld) [Mass/Vol] 6.3 g/dL 13.0-16.5 [facility] Blood lymphocytes/100 leukoc ytesOrdered By: Dr. Hogan on 11-23-2022 Lymphocytes/100 WBC (Bld) 25.6 % 19-41 [facility] Blood monocytes/100 leukocyt esOrdered By: Dr. Hogan on 11-23-2022 Monocytes/100 WBC (Bld) 6.0 % 0-10 [facility] Blood platelet mean volumeOr dered By: Dr. Hogan on 11-23-2022 Platelet mean volume (Bld) [Entitic vol] 10.8 fL 6.2-12.0 [facility] Determination of erythrocyte mean corpuscular volume (MCV)Ordered By: Dr. Hogan on 11-23-2022 MCV (RBC) [Entitic vol] 91.8 fL 80-94 [facility] Hematocrit Auto (Bld) [Volum e fraction]Ordered By: Dr. Hogan on 11-23-2022 Hematocrit (Bld) [Volume fraction] 19.0 % 40-54 [facility] Laboratory - Chemistry and C hemistry - challengeOrdered By: Dr. Hogan on 11-23-2022 CO2 [Moles/Vol] 21.0 mmol/L 21.0-32.0 [facility] Urea nitrogen/Creatinine [Mass ratio] 19.4 mg/mg 10-20 [facility] Laboratory - Hematology and Cell countsOrdered By: Dr. Hogan on 11-23-2022 Erythrocyte distribution width (RBC) [Entitic vol] 43.8 fL 35.1-43.9 [facility] Erythrocyte distribution width (RBC) [Ratio] 13.6 % 11.6-14.6 [facility] Immature granulocytes/100 WBC (Bld) 1.300 % 0.0-0.9 [facility] Comment on above: IG% - Immature Granu locytes (promyelocytes, myelocytes and metamyelocytes) > 1% indicates that a LEFT SHIFT is Present. MCH (RBC) [Entitic mass] 30.4 pg 27.0-32.0 [facility] Nucleated RBC/100 WBC (Bld) [Ratio] 0 % 0-5 [facility] Lower GI hemoglobin IA Ql (S tl)Ordered By: Dr. Renae on 11-23-2022 Stool Occult Blood (YENNI) Positive [facility] MCHC Auto (RBC) [Mass/Vol]Or dered By: Dr. Hogan on 11-23-2022 MCHC (RBC) [Mass/Vol] 33.2 g/dL 32-36 [facility] No Panel InformationOrdered By: Dr. Hogan on 11-23-2022 Estimated Creatinine Clearance Calc 35.99 ml/min [facility] Estimated GFR (MDRD) Amer 39 mL/min >60 [facility] Comment on above: GFR Calc Estimated GFR (MDRD) Non-Af Amer 32 mL/min >60 [facility] Comment on above: Non- GFR Calc Troponin I High Sensitivity 13 pg/mL 3.0-78.0 [facility] Comment on above: Please Note: [place] t Units and Gender Specific Reference Ranges. For more information see Policy Stat Procedure [place] High Sensitivity Troponin (TNIH) and attachments. Platelets bldOrdered By: Dr. Hogan on 11-23-2022 Platelets (Bld) [#/Vol] 154 10*3/uL 150-450 [facility] Serum or plasma calcium abhi urement (mass/volume)Ordered By: Dr. Hogan on 11-23-2022 Calcium [Mass/Vol] 7.3 mg/dL 8.5-10.1 [facility] Serum or plasma creatinine m easurement (mass/volume)Ordered By: Dr. Hogan on 11-23-2022 Creatinine [Mass/Vol] 2.27 mg/dL 0.70-1.30 [facility] Comment on above: The validity of the calculated GFR & GFRAA in patients over 70 years has not been determined. Clinical correlation is essential. Serum or plasma urea nitroge n measurement (mass/volume)Ordered By: Dr. Hogan on 11-23-2022 Urea nitrogen [Mass/Vol] 44 mg/dL 7-18 [facility] Thin prep Papanicolaou smear with manual screeningOrdered By: Dr. Hogan on 11-23-2022 Thin prep Papanicolaou smear with manual screening 5 5-15 [facility] Absolute lymphocyte countOrd ered By: Dr. Ibarra on 11-22-2022 Lymphocytes Auto (Unsp spec) [#/Vol] 1.65 10*3/uL 0.83-4.51 [facility] Basophil percentageOrdered B y: Dr. Ibarra on 11-22-2022 Basophils/100 WBC (Bld) 0.5 % 0-1 [facility] Eosinophils/100 WBC (Bld) 1.9 % 0-5 [facility] Neutrophils (Bld) [#/Vol] 2.2 10*3/uL 2.0-7.7 [facility] Neutrophils/100 WBC (Bld) 50.8 % 47-70 [facility] WBC (Bld) [#/Vol] 4.3 10*3/uL 4.4-11.0 [facility] Blood erythrocytes count (nu mber/volume)Ordered By: Dr. Ibarra on 11-22-2022 RBC (Bld) [#/Vol] 2.55 10*6/uL 4.6-6.2 [facility] Blood hemoglobin measurement (mass/volume)Ordered By: Dr. Ibarra on 11-22-2022 Hemoglobin (Bld) [Mass/Vol] 7.7 g/dL 13.0-16.5 [facility] Blood lymphocytes/100 leukoc ytesOrdered By: Dr. Ibarra on 11-22-2022 Lymphocytes/100 WBC (Bld) 38.6 % 19-41 [facility] Blood monocytes/100 leukocyt esOrdered By: Dr. Ibarra on 11-22-2022 Monocytes/100 WBC (Bld) 6.8 % 0-10 [facility] Blood platelet mean volumeOr dered By: Dr. Ibarra on 11-22-2022 Platelet mean volume (Bld) [Entitic vol] 10.2 fL 6.2-12.0 [facility] Determination of erythrocyte mean corpuscular volume (MCV)Ordered By: Dr. Ibarra on 11-22-2022 MCV (RBC) [Entitic vol] 89.8 fL 80-94 [facility] Hematocrit Auto (Bld) [Volum e fraction]Ordered By: Dr. Ibarra on 11-22-2022 Hematocrit (Bld) [Volume fraction] 22.9 % 40-54 [facility] Laboratory - Hematology and Cell countsOrdered By: Dr. Ibarra on 11-22-2022 Erythrocyte distribution width (RBC) [Entitic vol] 42.5 fL 35.1-43.9 [facility] Erythrocyte distribution width (RBC) [Ratio] 13.2 % 11.6-14.6 [facility] Immature granulocytes/100 WBC (Bld) 1.400 % 0.0-0.9 [facility] Comment on above: IG% - Immature Granu locytes (promyelocytes, myelocytes and metamyelocytes) > 1% indicates that a LEFT SHIFT is Present. MCH (RBC) [Entitic mass] 30.2 pg 27.0-32.0 [facility] Nucleated RBC/100 WBC (Bld) [Ratio] 0 % 0-5 [facility] MCHC Auto (RBC) [Mass/Vol]Or dered By: Dr. Ibarra on 11-22-2022 MCHC (RBC) [Mass/Vol] 33.6 g/dL 32-36 [facility] Platelets bldOrdered By: Dr. Ibarra on 11-22-2022 Platelets (Bld) [#/Vol] 142 10*3/uL 150-450 [facility] No Panel InformationOrdered By: Dr. Paulson on 11-02-2022 Carbamazepine (Tegretol) Level 8.5 ug/mL 4.0-12.0 [facility] Absolute lymphocyte countOrd ered By: Dr. Ibarra on 10-27-2022 Lymphocytes Auto (Unsp spec) [#/Vol] 1.81 10*3/uL 0.83-4.51 [facility] Basophil percentageOrdered B y: Dr. Ibarra on 10-27-2022 Basophils/100 WBC (Bld) 0.4 % 0-1 [facility] Bilirubin [Mass/Vol] 0.30 mg/dL 0.20-1.00 [facility] Comment on above: For patients on eltr ombopag therapy, use of Dimension [place] TBIL is not recommended. Chloride [Moles/Vol] 102 mmol/L 98-107 [facility] Eosinophils/100 WBC (Bld) 1.2 % 0-5 [facility] Glucose [Mass/Vol] 309 mg/dL 74-106 [facility] Comment on above: Glucose result great er than or equal to 200 mg/dLsuggests DIABETES MELLITUS per A.D.A. criteria. LDH [Catalytic activity/Vol] 166 U/L 87-241 [facility] Neutrophils (Bld) [#/Vol] 3.4 10*3/uL 2.0-7.7 [facility] Neutrophils/100 WBC (Bld) 60.7 % 47-70 [facility] Potassium [Moles/Vol] 5.0 mmol/L 3.5-5.1 [facility] Protein [Mass/Vol] 6.9 g/dL 6.4-8.2 [facility] Sodium [Moles/Vol] 132 mmol/L 136-145 [facility] WBC (Bld) [#/Vol] 5.7 10*3/uL 4.4-11.0 [facility] Blood erythrocytes count (nu mber/volume)Ordered By: Dr. Ibarra on 10-27-2022 RBC (Bld) [#/Vol] 2.95 10*6/uL 4.6-6.2 [facility] Blood hemoglobin measurement (mass/volume)Ordered By: Dr. Ibarra on 10-27-2022 Hemoglobin (Bld) [Mass/Vol] 8.9 g/dL 13.0-16.5 [facility] Blood lymphocytes/100 leukoc ytesOrdered By: Dr. Ibarra on 10-27-2022 Lymphocytes/100 WBC (Bld) 32.0 % 19-41 [facility] Blood monocytes/100 leukocyt esOrdered By: Dr. Ibarra on 10-27-2022 Monocytes/100 WBC (Bld) 5.0 % 0-10 [facility] Blood platelet mean volumeOr dered By: Dr. Ibarra on 10-27-2022 Platelet mean volume (Bld) [Entitic vol] 9.5 fL 6.2-12.0 [facility] Determination of erythrocyte mean corpuscular volume (MCV)Ordered By: Dr. Ibarra on 10-27-2022 MCV (RBC) [Entitic vol] 87.8 fL 80-94 [facility] Erythrocyte sedimentation ra teOrdered By: Dr. Ibarra on 10-27-2022 ESR (Bld) [Velocity] 24 mm/h High 0-20 [facility] Hematocrit Auto (Bld) [Volum e fraction]Ordered By: Dr. Ibarra on 10-27-2022 Hematocrit (Bld) [Volume fraction] 25.9 % 40-54 [facility] Hemoglobin in reticulocytes (mass per reticulocyte)Ordered By: Dr. Ibarra on 10-27-2022 Hemoglobin (Reticulocytes) [Entitic mass] 33.9 pg 30-35 [facility] Interpretation of serum or p lasma protein pattern by immunofixation (narrative resultOrdered By: Dr. Ibarra on 10-27-2022 Protein Fractions Immunofixation Rocco [Interp] See comment [facility] Comment on above: NOT OBSERVED Iron measurement (mass/mass) Ordered By: Dr. Ibarra on 10-27-2022 Iron (Unsp spec) [Mass/Mass] 81 ug/dL 65-175 [facility] Laboratory - Chemistry and C hemistry - challengeOrdered By: Dr. Ibarra on 10-27-2022 ALP [Catalytic activity/Vol] 59 U/L 45-117 [facility] ALT [Catalytic activity/Vol] 17 U/L 16-61 [facility] CO2 [Moles/Vol] 23.0 mmol/L 21.0-32.0 [facility] Cobalamin (Vitamin B12) [Mass/Vol] 432 pg/mL 211-911 [facility] Urea nitrogen/Creatinine [Mass ratio] 15.4 mg/mg 10-20 [facility] Laboratory - Hematology and Cell countsOrdered By: Dr. Ibarra on 10-27-2022 Erythrocyte distribution width (RBC) [Entitic vol] 41.5 fL 35.1-43.9 [facility] Erythrocyte distribution width (RBC) [Ratio] 13.1 % 11.6-14.6 [facility] Immature granulocytes/100 WBC (Bld) 0.700 % 0.0-0.9 [facility] Comment on above: IG% - Immature Granu locytes (promyelocytes, myelocytes and metamyelocytes) > 1% indicates that a LEFT SHIFT is Present. MCH (RBC) [Entitic mass] 30.2 pg 27.0-32.0 [facility] Nucleated RBC/100 WBC (Bld) [Ratio] 0 % 0-5 [facility] MCHC Auto (RBC) [Mass/Vol]Or dered By: Dr. Ibarra on 03-02-2023 MCHC (RBC) [Mass/Vol] 34.4 g/dL 32-36 [facility] No Panel InformationOrdered By: Dr. Ibarra on 10-27-2022 Addendum Document Comment . [facility] Comment on above: Protein electrophore sis scan will follow via computer,mail, or chicken hatchery helper delivery. Estimated Creatinine Clearance Calc 33.67 ml/min [facility] Estimated GFR (MDRD) Amer 33 mL/min >60 [facility] Comment on above: GFR Calc Estimated GFR (MDRD) Non-Af Amer 28 mL/min >60 [facility] Comment on above: Non- GFR Calc Free Lambda Light Chains, Quant 31.2 mg/L High 5.7-26.3 [facility] Immature Reticulocyte Fraction 7.90 % 3.00-15.90 [facility] Reticulocyte Count 1.45 % 0.5-1.5 [facility] Total Iron Binding Capacity 287 ug/dL 250-450 [facility] Platelets bldOrdered By: Dr. Ibarra on 10-27-2022 Platelets (Bld) [#/Vol] 190 10*3/uL 150-450 [facility] Serum [id number] measu rement by electrophoresisOrdered By: Dr. Ibarra on 10-27-2022 Alpha 1 globulin Elph [Mass/Vol] 0.2 g/dL 0.0-0.4 [facility] Alpha 1 globulin Elph [Mass/Vol] 1.1 g/dL High 0.4-1.0 [facility] Serum globulin measurement ( mass/volume)Ordered By: Dr. Ibarra on 10-27-2022 Globulin (S) [Mass/Vol] 3.1 g/dL 2.2-3.9 [facility] Serum immunoglobulin kappa l ight chains/immunoglobulin lambda light chains mass ratioOrdered By: Dr. Ibarra on 10-27-2022 Immunoglobulin light chains.kappa/Immunoglob ulin light chains.lambda (S) [Mass ratio] 2.23 High 0.26-1.65 [facility] Serum or plasma IgA measurem ent (mass/volume)Ordered By: Dr. Ibarra on 10-27-2022 IgA [Mass/Vol] 135 mg/dL 90-386 [facility] Serum or plasma IgG measurem ent (mass/volume)Ordered By: Dr. Ibarra on 10-27-2022 IgG [Mass/Vol] 918 mg/dL 603-1613 [facility] Serum or plasma IgM measurem ent (mass/volume)Ordered By: Dr. Ibarra on 10-27-2022 IgM [Mass/Vol] 84 mg/dL 20-172 [facility] Serum or plasma albumin abhi urement (mass/volume)Ordered By: Dr. Ibarra on 10-27-2022 Albumin [Mass/Vol] 3.2 g/dL 2.9-4.4 [facility] Serum or plasma albumin/glob ulin mass ratioOrdered By: Dr. Ibarra on 10-27-2022 Albumin/Globulin [Mass ratio] 0.9 {ratio} 0.9-2.4 [facility] Serum or plasma beta globuli n measurement by electrophoresis (mass/volume)Ordered By: Dr. Ibarra on 10-27-2022 Beta globulin Elph [Mass/Vol] 0.9 g/dL 0.7-1.3 [facility] Serum or plasma calcium abhi urement (mass/volume)Ordered By: Dr. Ibarra on 10-27-2022 Calcium [Mass/Vol] 8.4 mg/dL 8.5-10.1 [facility] Serum or plasma carcinoembry onic antigen measurement (mass/volume)Ordered By: Dr. Ibarra on 10-27-2022 Carcinoembryonic Ag [Mass/Vol] 1.5 ng/mL 0.0-4.7 [facility] Comment on above: Nonsmokers <3.9 Smok ers <5.6[employer] Electrochemiluminescence Immunoassay(ECLIA)Values obtained with different assay methods or kitscannot be used interchangeably. Results cannot beinterpreted as absolute evidence of the presence orabsence of malignant disease. Serum or plasma creatinine m easurement (mass/volume)Ordered By: Dr. Ibarra on 10-27-2022 Creatinine [Mass/Vol] 2.59 mg/dL 0.70-1.30 [facility] Comment on above: The validity of the calculated GFR & GFRAA in patients over 70 years has not been determined. Clinical correlation is essential. Serum or plasma erythropoiet in (EPO) measurement (units/volume)Ordered By: Dr. Ibarra on 10-27-2022 Erythropoietin (EPO) Qn 8.1 mIU/mL 2.6-18.5 [facility] Comment on above: Mobile [employer] el DxI 800 Immunoassay SystemValues obtained with different assay methods or kits cannotbe used interchangeably. Results cannot be interpreted asabsolute evidence of the presence or absence of malignantdisease.Performed at: [address] [id number] Director: Bradley Peña PhD, Phone: [phone] Serum or plasma ferritin ngozi surement (mass/volume)Ordered By: Dr. Ibarra on 10-27-2022 Ferritin [Mass/Vol] 122 ng/mL 26-388 [facility] Serum or plasma folate measu rement (mass/volume)Ordered By: Dr. Ibarra on 10-27-2022 Folate [Mass/Vol] 15.00 ng/mL 3.1-55.4 [facility] Serum or plasma gamma globul in measurement by electrophoresis (mass/volume)Ordered By: Dr. Ibarra on 10-27-2022 Gamma globulin Elph [Mass/Vol] 0.9 g/dL 0.4-1.8 [facility] Serum or plasma immunoelectr ophoresis interpretation (nominal result)Ordered By: Dr. Ibarra on 10-27-2022 Interpretation IEP [Interp] Comment . [facility] Comment on above: No monoclonality det ected. Serum or plasma immunoglobul in kappa light chains measurement (mass/volume)Ordered By: Dr. Ibarra on 10-27-2022 Immunoglobulin light chains.kappa [Mass/Vol] 69.5 mg/L High 3.3-19.4 [facility] Serum or plasma iron saturat ion measurement (mass fraction)Ordered By: Dr. Ibarra on 10-27-2022 Iron saturation [Mass fraction] 28.2 % 15.0-55.0 [facility] Serum or plasma urea nitroge n measurement (mass/volume)Ordered By: Dr. Ibarra on 10-27-2022 Urea nitrogen [Mass/Vol] 40 mg/dL 7-18 [facility] Thin prep Papanicolaou smear with manual screeningOrdered By: Dr. Ibarra on 10-27-2022 Thin prep Papanicolaou smear with manual screening 13 U/L 15-37 [facility] Thin prep Papanicolaou smear with manual screening 7 5-15 [facility] Thin prep Papanicolaou smear with manual screening 1.1 0.7-1.7 [facility] Total protein bloodOrdered B y: Dr. Ibarra on 10-27-2022 Protein [Mass/Vol] 6.3 g/dL 6.0-8.5 [facility] Basophil percentageOrdered B y: Juana Harvey on 09-29-2022 Basophil percentage 4.3 mg/dL 2.5-4.9 [facility] Chloride [Moles/Vol] 107 mmol/L 98-107 [facility] Glucose [Mass/Vol] 224 mg/dL 74-106 [facility] Comment on above: Glucose result great er than or equal to 200 mg/dLsuggests DIABETES MELLITUS per A.D.A. criteria. Potassium [Moles/Vol] 4.9 mmol/L 3.5-5.1 [facility] Sodium [Moles/Vol] 138 mmol/L 136-145 [facility] WBC (Bld) [#/Vol] 4.4 10*3/uL 4.4-11.0 [facility] Blood erythrocytes count (nu mber/volume)Ordered By: Juana Harvey on 09-29-2022 RBC (Bld) [#/Vol] 2.84 10*6/uL 4.6-6.2 [facility] Blood hemoglobin measurement (mass/volume)Ordered By: Juana Harvey on 09-29-2022 Hemoglobin (Bld) [Mass/Vol] 8.8 g/dL 13.0-16.5 [facility] Blood platelet mean volumeOr dered By: Juana Harevy on 09-29-2022 Platelet mean volume (Bld) [Entitic vol] 10.0 fL 6.2-12.0 [facility] Determination of erythrocyte mean corpuscular volume (MCV)Ordered By: Junaa Harvey on 09-29-2022 MCV (RBC) [Entitic vol] 91.9 fL 80-94 [facility] Hematocrit Auto (Bld) [Volum e fraction]Ordered By: Juana Harvey on 09-29-2022 Hematocrit (Bld) [Volume fraction] 26.1 % 40-54 [facility] Laboratory - Chemistry and C hemistry - challengeOrdered By: Juana Harvey on 09-29-2022 CO2 [Moles/Vol] 25.0 mmol/L 21.0-32.0 [facility] Urea nitrogen/Creatinine [Mass ratio] 13.3 mg/mg 10-20 [facility] Laboratory - Hematology and Cell countsOrdered By: Juana Harvey on 09-29-2022 Erythrocyte distribution width (RBC) [Entitic vol] 41.8 fL 35.1-43.9 [facility] Erythrocyte distribution width (RBC) [Ratio] 12.6 % 11.6-14.6 [facility] MCH (RBC) [Entitic mass] 31.0 pg 27.0-32.0 [facility] MCHC Auto (RBC) [Mass/Vol]Or dered By: Juana Harvey on 09-29-2022 MCHC (RBC) [Mass/Vol] 33.7 g/dL 32-36 [facility] No Panel InformationOrdered By: Juana Harvey on 09-29-2022 Estimated GFR (MDRD) Amer 41 mL/min >60 [facility] Comment on above: GFR Calc Estimated GFR (MDRD) Non-Af Amer 34 mL/min >60 [facility] Comment on above: Non- GFR Calc Parathyroid Hormone (Intact) 118.7 pg/mL 18.4-80.1 [facility] Vitamin D 25-Hydroxy 10.3 ng/mL [facility] Comment on above: Vitamin D 25(OH) Sta tus Range Deficiency <20 ng/mL (50nmol/L) Insufficiency 20 - 30 ng/mL (50 - 75 nmol/L) Sufficiency 30 - 100 ng/mL (75 - 250 nmol/L) Toxicity >100 ng/mL (>250 nmol/L) Platelets bldOrdered By: Josh Harvey on 09-29-2022 Platelets (Bld) [#/Vol] 133 10*3/uL 150-450 [facility] Serum or plasma albumin abhi urement (mass/volume)Ordered By: Juana Harvey on 09-29-2022 Albumin [Mass/Vol] 2.9 g/dL 3.2-5.0 [facility] Serum or plasma calcium abhi urement (mass/volume)Ordered By: Juana Harvey on 09-29-2022 Calcium [Mass/Vol] 8.8 mg/dL 8.5-10.1 [facility] Serum or plasma creatinine m easurement (mass/volume)Ordered By: Juana Harvey on 09-29-2022 Creatinine [Mass/Vol] 2.18 mg/dL 0.70-1.30 [facility] Comment on above: The validity of the calculated GFR & GFRAA in patients over 70 years has not been determined. Clinical correlation is essential. Serum or plasma urea nitroge n measurement (mass/volume)Ordered By: Juana Harvey on 09-29-2022 Urea nitrogen [Mass/Vol] 29 mg/dL 7-18 [facility] Urine creatinine measurement (mass/volume)Ordered By: Juana Harvey on 09-29-2022 Creatinine (U) [Mass/Vol] 43.90 mg/dL NO RANGE EST. [facility] Urine protein measurement (m ass/volume)Ordered By: Juana Harvey on 09-29-2022 Protein (U) [Mass/Vol] 388.9 mg/dL 0.0-11.8 [facility] Urine protein/creatinine mas s ratioOrdered By: Juana Harvey on 09-29-2022 Protein/Creatinine (U) [Mass ratio] 8859 mg/g CRE 0-200 [facility] GLUCOSE, BLOOD (POC)on 09-20 Glucose [Mass/Vol] 264 mg/dL Abnormal 74 - 99 mg/dL [facility] HEMOGLOBIN A1C (POC)on 09-20 HbA1c (Bld) [Mass fraction] 10.2 % Abnormal 4.2 - 5.6 % [facility] HEMOGLOBIN A1C (POC)on 06-17 HbA1c (Bld) [Mass fraction] 9.2 % Abnormal 4.2 - 5.6 % [facility] Basophil percentageon 2021 Basophil percentage 3.6 mg/dL 2.5-4.9 [facility] Work Phone: Comment on above: Slight Lipemia, Resu lt may be falsely increased. Chloride [Moles/Vol] 101 mmol/L 98-107 [facility] Work Phone: Glucose [Mass/Vol] 461 mg/dL 74-106 [facility] Work Phone: Comment on above: Slight Lipemia, Resu lt may be falsely increased.Glucose result greater than or equal to 200 mg/dLsuggests DIABETES MELLITUS per A.D.A. criteria. Potassium [Moles/Vol] 5.0 mmol/L 3.5-5.1 [facility] Work Phone: Comment on above: Moderate Hemolysis, Result may be falsely increased.-Slight Lipemia, Result may be falsely increased. Sodium [Moles/Vol] 133 mmol/L 136-145 [facility] Work Phone: WBC (Bld) [#/Vol] 5.7 10*3/uL 4.4-11.0 [facility] Work Phone: Blood erythrocytes count (nu mber/volume)on 05-19-2022 RBC (Bld) [#/Vol] 2.97 10*6/uL 4.6-6.2 [facility] Work Phone: Blood hemoglobin measurement (mass/volume)on 05-19-2022 Hemoglobin (Bld) [Mass/Vol] 9.4 g/dL 13.0-16.5 [facility] Work Phone: Blood platelet mean volumeon 05-19-2022 Platelet mean volume (Bld) [Entitic vol] 10.7 fL 6.2-12.0 [facility] Work Phone: Determination of erythrocyte mean corpuscular volume (MCV)on 05-19-2022 MCV (RBC) [Entitic vol] 90.2 fL 80-94 [facility] Work Phone: Hematocrit Auto (Bld) [Volum e fraction]on 05-19-2022 Hematocrit (Bld) [Volume fraction] 26.8 % 40-54 [facility] Work Phone: Laboratory - Chemistry and C hemistry - challengeon 05-19-2022 CO2 [Moles/Vol] 23.0 mmol/L 21.0-32.0 [facility] Work Phone: Comment on above: Slight Lipemia, Resu lt may be falsely increased. Urea nitrogen/Creatinine [Mass ratio] 19.2 mg/mg 10-20 [facility] Work Phone: Laboratory - Hematology and Cell countson 05-19-2022 Erythrocyte distribution width (RBC) [Entitic vol] 41.3 fL 35.1-43.9 [facility] Work Phone: Erythrocyte distribution width (RBC) [Ratio] 12.7 % 11.6-14.6 [facility] Work Phone: MCH (RBC) [Entitic mass] 31.6 pg 27.0-32.0 [facility] Work Phone: MCHC Auto (RBC) [Mass/Vol]on 05-19-2022 MCHC (RBC) [Mass/Vol] 35.1 g/dL 32-36 [facility] Work Phone: No Panel Informationon 05-19 Estimated GFR (MDRD) Amer 40 mL/min >60 [facility] Work Phone: Comment on above: GFR Calc Estimated GFR (MDRD) Non-Af Amer 33 mL/min >60 [facility] Work Phone: Comment on above: Non- GFR Calc Parathyroid Hormone (Intact) 96.0 pg/mL 18.4-80.1 [facility] Work Phone: Vitamin D 25-Hydroxy 9.9 ng/mL [facility] Work Phone: Comment on above: Vitamin D 25(OH) Sta tus Range Deficiency <20 ng/mL (50nmol/L) Insufficiency 20 - 30 ng/mL (50 - 75 nmol/L) Sufficiency 30 - 100 ng/mL (75 - 250 nmol/L) Toxicity >100 ng/mL (>250 nmol/L) Platelets bldon 05-19-2022 Platelets (Bld) [#/Vol] 188 10*3/uL 150-450 [facility] Work Phone: Serum or plasma albumin abhi urement (mass/volume)on 05-19-2022 Albumin [Mass/Vol] 3.2 g/dL 3.2-5.0 [facility] Work Phone: Serum or plasma calcium abhi urement (mass/volume)on 05-19-2022 Calcium [Mass/Vol] 8.8 mg/dL 8.5-10.1 [facility] Work Phone: Comment on above: Slight Lipemia, Resu lt may be falsely increased. Serum or plasma creatinine m easurement (mass/volume)on 05-19-2022 Creatinine [Mass/Vol] 2.24 mg/dL 0.70-1.30 [facility] Work Phone: Comment on above: Slight Lipemia, Resu lt may be falsely increased.The validity of the calculated GFR & GFRAA in patients over 70 years has not been determined. Clinical correlation is essential. Serum or plasma urea nitroge n measurement (mass/volume)on 05-19-2022 Urea nitrogen [Mass/Vol] 43 mg/dL 7-18 [facility] Work Phone: Urine creatinine measurement (mass/volume)on 05-19-2022 Creatinine (U) [Mass/Vol] 35.10 mg/dL NO RANGE EST. [facility] Work Phone: Urine protein measurement (m ass/volume)on 05-19-2022 Protein (U) [Mass/Vol] 199.7 mg/dL 0.0-11.8 [facility] Work Phone: Urine protein/creatinine mas s ratioon 05-19-2022 Protein/Creatinine (U) [Mass ratio] 5689 mg/g CRE 0-200 [facility] Work Phone: Absolute lymphocyte countOrd ered By: Maureen Campbell on 05-03-2022 Lymphocytes Auto (Unsp spec) [#/Vol] 1.61 10*3/uL 0.83-4.51 [facility] Basophil percentageOrdered B y: Maureen Campbell on 05-03-2022 Basophils/100 WBC (Bld) 0.5 % 0-1 [facility] Bilirubin [Mass/Vol] 0.30 mg/dL 0.20-1.00 [facility] Comment on above: Slight Lipemia, Resu lt may be falsely increased. For patients on eltrombopag therapy, use of Dimension [place] TBIL is not recommended. Chloride [Moles/Vol] 100 mmol/L 98-107 [facility] Eosinophils/100 WBC (Bld) 1.1 % 0-5 [facility] Glucose [Mass/Vol] 357 mg/dL 74-106 [facility] Comment on above: Slight Lipemia, Resu lt may be falsely increased.Glucose result greater than or equal to 200 mg/dLsuggests DIABETES MELLITUS per A.D.A. criteria. Neutrophils (Bld) [#/Vol] 3.4 10*3/uL 2.0-7.7 [facility] Neutrophils/100 WBC (Bld) 61.7 % 47-70 [facility] Potassium [Moles/Vol] 4.9 mmol/L 3.5-5.1 [facility] Comment on above: Moderate Hemolysis, Result may be falsely increased.-Slight Lipemia, Result may be falsely increased. Protein [Mass/Vol] 7.0 g/dL 6.4-8.2 [facility] Comment on above: Slight Lipemia, Resu lt may be falsely increased. Sodium [Moles/Vol] 131 mmol/L 136-145 [facility] WBC (Bld) [#/Vol] 5.5 10*3/uL 4.4-11.0 [facility] Blood erythrocytes count (nu mber/volume)Ordered By: Maureen Campbell on 05-03-2022 RBC (Bld) [#/Vol] 3.10 10*6/uL 4.6-6.2 [facility] Blood hemoglobin measurement (mass/volume)Ordered By: Maureen Campbell on 05-03-2022 Hemoglobin (Bld) [Mass/Vol] 9.6 g/dL 13.0-16.5 [facility] Blood lymphocytes/100 leukoc ytesOrdered By: Maureen Campbell on 05-03-2022 Lymphocytes/100 WBC (Bld) 29.4 % 19-41 [facility] Blood monocytes/100 leukocyt esOrdered By: [facility] Shannan on 05-03-2022 Monocytes/100 WBC (Bld) 6.2 % 0-10 [facility] Blood platelet mean volumeOr dered By: Maureen Campbell on 05-03-2022 Platelet mean volume (Bld) [Entitic vol] 10.0 fL 6.2-12.0 [facility] Determination of erythrocyte mean corpuscular volume (MCV)Ordered By: Maureen Campbell on 05-03-2022 MCV (RBC) [Entitic vol] 87.1 fL 80-94 [facility] Hematocrit Auto (Bld) [Volum e fraction]Ordered By: Maureen Campbell on 05-03-2022 Hematocrit (Bld) [Volume fraction] 27.0 % 40-54 [facility] Laboratory - Chemistry and C hemistry - challengeOrdered By: [facility] on 05-03-2022 ALP [Catalytic activity/Vol] 67 U/L 45-117 [facility] ALT [Catalytic activity/Vol] 23 U/L 16-61 [facility] Comment on above: Slight Lipemia, Resu lt may be falsely increased. CO2 [Moles/Vol] 25.0 mmol/L 21.0-32.0 [facility] Comment on above: Slight Lipemia, Resu lt may be falsely increased. Globulin (S) [Mass/Vol] 4.0 g/dL 2.2-4.2 [facility] Urea nitrogen/Creatinine [Mass ratio] 16.6 mg/mg 10-20 [facility] Laboratory - Hematology and Cell countsOrdered By: Maureen Campbell on 05-03-2022 Erythrocyte distribution width (RBC) [Entitic vol] 40.6 fL 35.1-43.9 [facility] Erythrocyte distribution width (RBC) [Ratio] 12.9 % 11.6-14.6 [facility] Immature granulocytes/100 WBC (Bld) 1.100 % 0.0-0.9 [facility] Comment on above: IG% - Immature Granu locytes (promyelocytes, myelocytes and metamyelocytes) > 1% indicates that a LEFT SHIFT is Present. MCH (RBC) [Entitic mass] 31.0 pg 27.0-32.0 [facility] Nucleated RBC/100 WBC (Bld) [Ratio] 0 % 0-5 [facility] MCHC Auto (RBC) [Mass/Vol]Or dered By: Maureen Campbell on 05-03-2022 MCHC (RBC) [Mass/Vol] 35.6 g/dL 32-36 [facility] No Panel InformationOrdered By: Maureen Campbell on 05-03-2022 Estimated Creatinine Clearance Calc 56.18 ml/min [facility] Estimated GFR (MDRD) Amer 60 mL/min >60 [facility] Comment on above: GFR Calc Estimated GFR (MDRD) Non-Af Amer 49 mL/min >60 [facility] Comment on above: Non- GFR Calc Platelets bldOrdered By: Georgina Campbell on 05-03-2022 Platelets (Bld) [#/Vol] 165 10*3/uL 150-450 [facility] Serum or plasma albumin abhi urement (mass/volume)Ordered By: Maureen Campbell on 05-03-2022 Albumin [Mass/Vol] 3.0 g/dL 3.2-5.0 [facility] Serum or plasma albumin/glob ulin mass ratioOrdered By: Maureen Campbell on 05-03-2022 Albumin/Globulin [Mass ratio] 0.8 {ratio} 0.9-2.4 [facility] Serum or plasma calcium abhi urement (mass/volume)Ordered By: Maureen Campbell on 05-03-2022 Calcium [Mass/Vol] 8.3 mg/dL 8.5-10.1 [facility] Comment on above: Slight Lipemia, Resu lt may be falsely increased. Serum or plasma carcinoembry onic antigen measurement (mass/volume)Ordered By: Maureen Campbell on 05-03-2022 Carcinoembryonic Ag [Mass/Vol] 1.7 ng/mL 0.0-4.7 [facility] Comment on above: Nonsmokers <3.9 Smok ers <5.6[employer] Electrochemiluminescence Immunoassay(ECLIA)Values obtained with different assay methods or kitscannot be used interchangeably. Results cannot beinterpreted as absolute evidence of the presence orabsence of malignant disease.Performed at: - [facility] [id number] Director: Bradley Peña PhD, Phone: [phone] Serum or plasma creatinine m easurement (mass/volume)Ordered By: Maureen Campbell on 05-03-2022 Creatinine [Mass/Vol] 1.57 mg/dL 0.70-1.30 [facility] Comment on above: Slight Lipemia, Resu lt may be falsely increased.The validity of the calculated GFR & GFRAA in patients over 70 years has not been determined. Clinical correlation is essential. Serum or plasma urea nitroge n measurement (mass/volume)Ordered By: Maureen Campbell on 05-03-2022 Urea nitrogen [Mass/Vol] 26 mg/dL 03-14 [facility] Comment on above: Slight Lipemia, Resu lt may be falsely increased. Thin prep Papanicolaou smear with manual screeningOrdered By: Maureen Campbell on 05-03-2022 Thin prep Papanicolaou smear with manual screening 14 U/L [facility] Comment on above: Moderate Hemolysis, Result may be falsely increased.-Slight Lipemia, Result may be falsely increased. Thin prep Papanicolaou smear with manual screening 6 01-09 [facility] XR TOE AP/LAT/OBL LEFTon [facility] CBC W Auto Differential pane l (Bld)on 02-04-2022 Basophils (Bld) [#/Vol] 0.05 10*3/uL Normal <0.11 [facility] Comment on above: Order Comment: Speci men Type: BLOOD SPECIMEN Ordering Facility: [facility] Address: [address] [place] [address] Performed By: #### 5 7021-8 #### [facility] CLIA [id number] [address] [place] [id number] [place] Basophils/100 WBC (Bld) 0.8 % Normal [facility] Comment on above: Order Comment: Speci men Type: BLOOD SPECIMEN Ordering Facility: [facility] Address: [address] [place] [address] Performed By: #### 5 7021-8 #### [facility] CLIA [id number] [address] [place] Differential cell count method Nom (Bld) Auto Normal [facility] Comment on above: Order Comment: Speci men Type: BLOOD SPECIMEN Ordering Facility: [facility] Address: [address] [place] [address] Performed By: #### 5 7021-8 #### [facility] CLIA [id number] [address] Eosinophils (Bld) [#/Vol] 0.06 10*3/uL Normal <0.46 [facility] Comment on above: Order Comment: Speci men Type: BLOOD SPECIMEN Ordering Facility: [facility] Address: [address] [place] [address] Performed By: #### 5 7021-8 #### [facility] CLIA [id number] [address] Eosinophils/100 WBC (Bld) 1.0 % Normal [facility] Comment on above: Order Comment: Speci men Type: BLOOD SPECIMEN Ordering Facility: [facility] Address: [address] [place] [address] Performed By: #### 5 7021-8 #### [facility] CLIA [id number] [address] Erythrocyte distribution width (RBC) [Ratio] 12.2 % Normal 11.5-15.0 [facility] Comment on above: Order Comment: Speci men Type: BLOOD SPECIMEN Ordering Facility: [facility] Address: [address] [place] [address] Performed By: #### 5 7021-8 #### [facility] CLIA [id number] [address] [place] Hematocrit (Bld) [Volume fraction] 25.1 % Low 39.0-51.0 [facility] Comment on above: Order Comment: Speci men Type: BLOOD SPECIMEN Ordering Facility: [facility] Address: [address] [place] [address] Performed By: #### 5 7021-8 #### [facility] CLIA [id number] [address] Hemoglobin (Bld) [Mass/Vol] 8.5 g/dL Low 13.0-17.0 [facility] Comment on above: Order Comment: Speci men Type: BLOOD SPECIMEN Ordering Facility: [facility] Address: [address] [place] [address] Performed By: #### 5 7021-8 #### [facility] CLIA [id number] [address] IMMATURE GRAN % 1.0 % Normal [facility] Comment on above: Order Comment: Speci men Type: BLOOD SPECIMEN Ordering Facility: [facility] Address: [address] [place] [address] Performed By: #### 5 7021-8 #### [facility] CLIA [id number] [address] IMMATURE GRAN ABS 0.06 k/uL Normal <0.10 [facility] Comment on above: Order Comment: Speci men Type: BLOOD SPECIMEN Ordering Facility: [facility] Address: [address] [place] [address] Performed By: #### 5 7021-8 #### [facility] CLIA [id number] [address] Lymphocytes (Bld) [#/Vol] 1.67 10*3/uL Normal 1.00-4.00 [facility] Comment on above: Order Comment: Speci men Type: BLOOD SPECIMEN Ordering Facility: [facility] Address: [address] [place] [address] Performed By: #### 5 7021-8 #### [facility] CLIA [id number] [address] Lymphocytes/100 WBC (Bld) 26.8 % Normal [facility] Comment on above: Order Comment: Speci men Type: BLOOD SPECIMEN Ordering Facility: [facility] Address: [address] [place] [address] Performed By: #### 5 7021-8 #### [facility] CLIA [id number] [address] [place] MCH (RBC) [Entitic mass] 28.9 pg Normal 26.0-34.0 [facility] Comment on above: Order Comment: Speci men Type: BLOOD SPECIMEN Ordering Facility: [facility] Address: [address] [place] [address] Performed By: #### 5 7021-8 #### [facility] CLIA [id number] [address] [place] MCHC (RBC) [Mass/Vol] 33.9 g/dL Normal 30.5-36.0 [facility] Comment on above: Order Comment: Speci men Type: BLOOD SPECIMEN Ordering Facility: [facility] Address: [address] [place] [address] Performed By: #### 5 7021-8 #### [facility] CLIA [id number] [address] [place] MCV (RBC) [Entitic vol] 85.4 fL Normal 80.0-100.0 [facility] Comment on above: Order Comment: Speci men Type: BLOOD SPECIMEN Ordering Facility: [facility] Address: [address] [place] [address] Performed By: #### 5 7021-8 #### [facility] CLIA [id number] [address] [place] Monocytes (Bld) [#/Vol] 0.34 10*3/uL Normal <0.87 [facility] Comment on above: Order Comment: Speci men Type: BLOOD SPECIMEN Ordering Facility: [facility] Address: [address] [place] [address] Performed By: #### 5 7021-8 #### [facility] CLIA [id number] [address] [place] [address] [place] Monocytes/100 WBC (Bld) 5.4 % Normal [facility] Comment on above: Order Comment: Speci men Type: BLOOD SPECIMEN Ordering Facility: [facility] Address: [address] [address] Performed By: #### 5 7021-8 #### [facility] CLIA [id number] [address] [place] [address] [place] Neutrophils (Bld) [#/Vol] 4.06 10*3/uL Normal 1.45-7.50 [facility] Comment on above: Order Comment: Speci men Type: BLOOD SPECIMEN Ordering Facility: [facility] Address: [address] [place] [address] Performed By: #### 5 7021-8 #### [facility] CLIA [id number] [address] [place] Neutrophils/100 WBC (Bld) 65.0 % Normal [facility] Comment on above: Order Comment: Speci men Type: BLOOD SPECIMEN Ordering Facility: [facility] Address: [address] [place] [address] Performed By: #### 5 7021-8 #### [facility] CLIA [id number] [address] [place] [address] [place] Nucleated RBC (Bld) [#/Vol] 10*3/uL Normal <0.01 [facility] Comment on above: Order Comment: Speci men Type: BLOOD SPECIMEN Ordering Facility: [facility] Address: [address] [place] [address] Performed By: #### 5 7021-8 #### [facility] CLIA [id number] [address] [place] [address] [place] Nucleated RBC/100 WBC (Bld) [Ratio] 0.0 /100 WBC Normal [facility] Comment on above: Order Comment: Speci men Type: BLOOD SPECIMEN Ordering Facility: [facility] Address: [address] [place] [address] Performed By: #### 5 7021-8 #### [facility] CLIA [id number] [address] [place] Platelet mean volume (Bld) [Entitic vol] 9.8 fL Normal 9.0-12.7 [facility] Comment on above: Order Comment: Speci men Type: BLOOD SPECIMEN Ordering Facility: [facility] Address: [address] [place] [address] Performed By: #### 5 7021-8 #### [facility] CLIA [id number] [address] [place] [address] [place] Platelets (Bld) [#/Vol] 222 10*3/uL Normal 150-400 [facility] Comment on above: Order Comment: Speci men Type: BLOOD SPECIMEN Ordering Facility: [facility] Address: [address] [place] [address] Performed By: #### 5 7021-8 #### [facility] CLIA [id number] [address] [place] RBC (Bld) [#/Vol] 2.94 10*6/uL Low 4.20-6.00 [facility] Comment on above: Order Comment: Speci men Type: BLOOD SPECIMEN Ordering Facility: [facility] Address: [address] [place] [address] Performed By: #### 5 7021-8 #### [facility] CLIA [id number] [address] WBC (Bld) [#/Vol] 6.24 10*3/uL Normal 3.70-11.00 [facility] Comment on above: Order Comment: Speci men Type: BLOOD SPECIMEN Ordering Facility: [facility] Address: [address] [place] [address] Performed By: #### 5 7021-8 #### [facility] CLIA [id number] [address] [place] CT BRAIN WO IVCONon 02-05-[address] BRAIN WO IVCON * * *Final Report* * * DATE OF EXAM: Feb 04 2022 1:12PM [facility] [place] - CT BRAIN WO IVCON / [...] base and imaged soft tissues are unremarkable. Home Care Coordinator (topogram) images: No additional findings. IMPRESSION: 1. No intracranial hemorrhage or other acute intracranial abnormalities 2. Large amount of atrophy for the patient's age [facility] Transcribe Date/Time: Feb 04 2022 1:28P Dictated by : BETZAIDA MOODY DO This examination was interpreted and the report reviewed and electronically signed by: BETZAIDA MOODY DO on Feb 04 2022 1:35PM EST [id number] Normal [facility] Comprehensive metabolic 2000 panelon 02-04-2022 Albumin [Mass/Vol] 3.9 g/dL Normal 3.9-4.9 [facility] Comment on above: Order Comment: Pat noriega Type: BLOOD SPECIMEN Ordering Facility: [facility] Address: [address] [place] [address] Performed By: #### 2 4323-8, DILAN #### [facility] CLIA [id number] [address] [place] [address] [place] ALP [Catalytic activity/Vol] 78 U/L Normal 38-113 [facility] Comment on above: Order Comment: Pat noriega Type: BLOOD SPECIMEN Ordering Facility: [facility] Address: [address] [place] [address] Performed By: #### 2 4323-8, DILAN #### [facility] CLIA [id number] [address] ALT [Catalytic activity/Vol] 17 U/L Normal 10-54 [facility] Comment on above: Order Comment: Speci men Type: BLOOD SPECIMEN Ordering Facility: [facility] Address: [address] [place] [address] Performed By: #### 2 4323-8, DILAN #### [facility] CLIA [id number] [address] [place] Anion gap [Moles/Vol] 10 mmol/L Normal 9-18 [facility] Comment on above: Order Comment: Speci men Type: BLOOD SPECIMEN Ordering Facility: [facility] Address: [address] [place] [address] Performed By: #### 2 4323-8, DILAN #### [facility] CLIA [id number] [address] AST [Catalytic activity/Vol] 12 U/L Low 14-40 [facility] Comment on above: Order Comment: Speci men Type: BLOOD SPECIMEN Ordering Facility: [facility] Address: [address] [place] [address] Performed By: #### 2 4323-8, DILAN #### [facility] CLIA [id number] [address] [place] Bilirubin [Mass/Vol] mg/dL Low 0.2-1.3 [facility] Comment on above: Order Comment: Speci men Type: BLOOD SPECIMEN Ordering Facility: [facility] Address: [address] [place] [address] Performed By: #### 2 4323-8, DILAN #### [facility] CLIA [id number] [address] Calcium [Mass/Vol] 8.8 mg/dL Normal 8.5-10.2 [facility] Comment on above: Order Comment: Speci men Type: BLOOD SPECIMEN Ordering Facility: [facility] Address: [address] [address] Performed By: #### 2 4323-8, DILAN #### [facility] CLIA [id number] [address] [place] [address] [place] Chloride [Moles/Vol] 101 mmol/L Normal 97-105 [facility] Comment on above: Order Comment: Speci men Type: BLOOD SPECIMEN Ordering Facility: [facility] Address: [address] [place] [address] Performed By: #### 2 4323-8, DILAN #### [facility] CLIA [id number] [address] [place] [address] [place] CO2 [Moles/Vol] 24 mmol/L Normal 22-30 [facility] Comment on above: Order Comment: Speci men Type: BLOOD SPECIMEN Ordering Facility: [facility] Address: [address] [place] [address] Performed By: #### 2 4323-8, DILAN #### [facility] CLIA [id number] [address] [place] [address] [place] Creatinine [Mass/Vol] 1.67 mg/dL High 0.73-1.22 [facility] Comment on above: Order Comment: Speci men Type: BLOOD SPECIMEN Ordering Facility: [facility] Address: [address] [place] [address] Performed By: #### 2 4323-8, DILAN #### [facility] CLIA [id number] [address] [place] ESTIMATED GLOMERULAR FILTRATION RATE 49 mL/min/1.73m??? Low >=60 [facility] Comment on above: Order Comment: Speci men Type: BLOOD SPECIMEN Ordering Facility: [facility] Address: [address] [place] [address] Result Comment: Venita mated Glomerular Filtration Rate [...] Performed By: #### 2 4323-8, DILAN #### [facility] CLIA [id number] [address] [place] [address] [place] Glucose [Mass/Vol] 253 mg/dL High 74-99 [facility] Comment on above: Order Comment: Pat noriega Type: BLOOD SPECIMEN Ordering Facility: [facility] Address: [address] [place] [address] Result Comment: The [place] [employer] (ADA) provides guidance for cutoff [...] Standards of Medical Care in Diabetes 2016, [place] [employer]. Diabetes Care. 2016.39(Suppl 1). Performed By: #### 2 4323-8, DILAN #### [facility] CLIA [id number] [address] [place] [address] [place] Potassium [Moles/Vol] 4.4 mmol/L Normal 3.7-5.1 [facility] Comment on above: Order Comment: Pat noriega Type: BLOOD SPECIMEN Ordering Facility: [facility] Address: [address] [place] [address] Performed By: #### 2 4323-8, DILAN #### [facility] CLIA [id number] [address] [place] [address] [place] Protein [Mass/Vol] 7.1 g/dL Normal 6.3-8.0 [facility] Comment on above: Order Comment: Pat noriega Type: BLOOD SPECIMEN Ordering Facility: [facility] Address: [address] [place] [address] Performed By: #### 2 4323-8, DILAN #### [facility] CLIA [id number] [address] Sodium [Moles/Vol] 135 mmol/L Low 136-144 [facility] Comment on above: Order Comment: Speci men Type: BLOOD SPECIMEN Ordering Facility: [facility] Address: [address] [place] [address] Performed By: #### 2 4323-8, DILAN #### [facility] CLIA [id number] [address] Urea nitrogen [Mass/Vol] 29 mg/dL High 9-24 [facility] Comment on above: Order Comment: Speci men Type: BLOOD SPECIMEN Ordering Facility: [facility] Address: [address] [place] [address] Performed By: #### 2 4323-8, DILAN #### [facility] CLIA [id number] [address] ED NOTEon 02-04-2022 ED NOTE HNO ID: [id number] Author: Richie Perez RN Service: ? Author Type: Registered Nurse Type: ED Notes Filed: 02/07/2022 11:16 AM Note Text: Emergency Services: ED Call Back Questionnaire SERVICE DATE: 02/04/2022 Are you feeling better? Yes Any questions about discharge instructions and follow-up care? no SIGNATURE: Richie Perez RN PATIENT NAME: Reginaldo Huffman DATE: February 07, 2022 TIME: 11:15 AM [facility] ED NOTE HNO ID: [id number] Author: Kaden Young RN Service: ? Author Type: Registered Nurse Type: ED Notes Filed: 02/04/2022 2:19 PM Note Text: Pt provided with discharged instructions. Medications gone over and all questions answered. Pt. Assisted to car in wheelchair. [facility] ED NOTE HNO ID: [id number] Author: Savana Dubose RN Service: Nursing Author Type: Registered Nurse Type: ED Notes Filed: 02/04/2022 12:23 PM Note Text: Dr. mendoza at for exam. [facility] ED NOTE HNO ID: [id number] Author: Savana Dubose RN Service: ? 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 from pancreatitis. - Villous [...] There is (more content not included)... Normal [facility] GLUCOSE, BLOOD (POC)on 02-04 Glucose [Mass/Vol] 262 mg/dL Abnormal 74 - 99 mg/dL [facility] HEMOGLOBIN A1C (POC)on 02-04 HbA1c (Bld) [Mass fraction] 8.3 % Abnormal 4.2 - 5.6 % [facility] PT panel Coag (PPP)on 2021 INR Coag (PPP) [Relative time] 1.6 {INR} High 0.9-1.3 [facility] Comment on above: Order Comment: Speci men Type: BLOOD SPECIMEN Ordering Facility: [facility] Address: [address] [place] [id number] Result Comment: Tereza min K Antagonist (VKA) Therapeutic Range: INR 2 to 3 (Target INR of 2.5) Note: For patients treated with VKA drugs, such as warfarin, the [place] [employer] 2012 Guideline recommends [...] Chest 2012, 141:7S-47S Heaven GREGORIO et al. [facility] 2017, 70: 252-289 Performed By: #### 3 4528-0 #### [facility] CLIA [id number] [address] [place] [address] [place] PT Coag (PPP) [Time] 16.6 s High 9.7-13.0 [facility] Comment on above: Order Comment: Speci men Type: BLOOD SPECIMEN Ordering Facility: [facility] Address: [address] [place] [address] Performed By: #### 3 4528-0 #### [facility] CLIA [id number] [address] [place] TROPONIN Ton 02-04-2022 Troponin T.cardiac [Mass/Vol] 0.016 ug/L Normal 0.000-0.029 [facility] Comment on above: Order Comment: Speci men Type: BLOOD SPECIMEN Ordering Facility: [facility] Address: [address] [place] [address] Performed By: #### 2 4323-8, DILAN #### [facility] CLIA [id number] [address] [place] Basophil percentageon 2021 Bilirubin [Mass/Vol] 0.10 mg/dL 0.20-1.00 [facility] Work Phone: Comment on above: For patients on eltr ombopag therapy, use of Dimension [place] TBIL is not recommended. Chloride [Moles/Vol] 102 mmol/L 98-107 [facility] Work Phone: Glucose [Mass/Vol] 216 mg/dL 74-106 [facility] Work Phone: Comment on above: Glucose result great er than or equal to 200 mg/dLsuggests DIABETES MELLITUS per A.D.A. criteria. Potassium [Moles/Vol] 4.2 mmol/L 3.5-5.1 [facility] Work Phone: Protein [Mass/Vol] 8.0 g/dL 6.4-8.2 [facility] Work Phone: [phone] Sodium [Moles/Vol] 134 mmol/L 136-145 [facility] Work Phone: WBC (Bld) [#/Vol] 5.7 10*3/uL 4.4-11.0 [facility] Work Phone: Blood erythrocytes count (nu mber/volume)on 02-01-2022 RBC (Bld) [#/Vol] 3.12 10*6/uL 4.6-6.2 [facility] Work Phone: Blood hemoglobin measurement (mass/volume)on 02-01-2022 Hemoglobin (Bld) [Mass/Vol] 9.2 g/dL 13.0-16.5 [facility] Work Phone: Blood platelet mean volumeon 02-01-2022 Platelet mean volume (Bld) [Entitic vol] 9.9 fL 6.2-12.0 [facility] Work Phone: Determination of erythrocyte mean corpuscular volume (MCV)on 02-01-2022 MCV (RBC) [Entitic vol] 88.1 fL 80-94 [facility] Work Phone: Hematocrit Auto (Bld) [Volum e fraction]on 02-01-2022 Hematocrit (Bld) [Volume fraction] 27.5 % 40-54 [facility] Work Phone: Laboratory - Chemistry and C hemistry - challengeon 02-01-2022 ALP [Catalytic activity/Vol] 74 U/L 45-117 [facility] Work Phone: ALT [Catalytic activity/Vol] 26 U/L 16-61 [facility] Work Phone: CO2 [Moles/Vol] 25.0 mmol/L 21.0-32.0 [facility] Work Phone: Globulin (S) [Mass/Vol] 4.9 g/dL 2.2-4.2 [facility] Work Phone: Urea nitrogen/Creatinine [Mass ratio] 17.1 mg/mg 10-20 [facility] Work Phone: Laboratory - Hematology and Cell countson 02-01-2022 Erythrocyte distribution width (RBC) [Entitic vol] 38.7 fL 35.1-43.9 [facility] Work Phone: Erythrocyte distribution width (RBC) [Ratio] 12.0 % 11.6-14.6 [facility] Work Phone: MCH (RBC) [Entitic mass] 29.5 pg 27.0-32.0 [facility] Work Phone: MCHC Auto (RBC) [Mass/Vol]on 02-01-2022 MCHC (RBC) [Mass/Vol] 33.5 g/dL 32-36 [facility] Work Phone: No Panel Informationon 02-01 Carbamazepine (Tegretol) Level 10.1 ug/mL 4.0-12.0 [facility] Work Phone: Estimated GFR (MDRD) Amer 59 mL/min >60 [facility] Work Phone: Comment on above: GFR Calc Estimated GFR (MDRD) Non-Af Amer 49 mL/min >60 [facility] Work Phone: Comment on above: Non- GFR Calc Urine Microalbumin/Creatinine Ratio 3975.7 mg/g CRE <30 [facility] Work Phone: Platelets bldon 02-01-2022 Platelets (Bld) [#/Vol] 235 10*3/uL 150-450 [facility] Work Phone: Serum or plasma albumin abhi urement (mass/volume)on 02-01-2022 Albumin [Mass/Vol] 3.1 g/dL 3.2-5.0 [facility] Work Phone: Serum or plasma albumin/glob ulin mass ratioon 02-01-2022 Albumin/Globulin [Mass ratio] 0.6 {ratio} 0.9-2.4 [facility] Work Phone: Serum or plasma calcium abhi urement (mass/volume)on 02-01-2022 Calcium [Mass/Vol] 9.4 mg/dL 8.5-10.1 [facility] Work Phone: Serum or plasma creatinine m easurement (mass/volume)on 02-01-2022 Creatinine [Mass/Vol] 1.58 mg/dL 0.70-1.30 [facility] Work Phone: Comment on above: The validity of the calculated GFR & GFRAA in patients over 70 years has not been determined. Clinical correlation is essential. Serum or plasma urea nitroge n measurement (mass/volume)on 02-01-2022 Urea nitrogen [Mass/Vol] 27 mg/dL 7-18 [facility] Work Phone: Thin prep Papanicolaou smear with manual screeningon 02-01-2022 Thin prep Papanicolaou smear with manual screening 13 U/L 15-37 [facility] Work Phone: Thin prep Papanicolaou smear with manual screening 7 5-15 [facility] Work Phone: Thin prep Papanicolaou smear with manual screening 2290.0 mg/L NO RANGE EST. [facility] Work Phone: Urine creatinine measurement (mass/volume)on 02-01-2022 Creatinine (U) [Mass/Vol] 57.60 mg/dL NO RANGE EST. [facility] Work Phone: No Panel Informationon 01-28 [facility] Absolute lymphocyte counton 01-26-2022 Lymphocytes Auto (Unsp spec) [#/Vol] 1.48 10*3/uL 0.83-4.51 [facility] Work Phone: Basophil percentageon 2021 Basophils/100 WBC (Bld) 0.3 % 0-1 [facility] Work Phone: Chloride [Moles/Vol] 103 mmol/L 98-107 [facility] Work Phone: Eosinophils/100 WBC (Bld) 1.0 % 0-5 [facility] Work Phone: Glucose [Mass/Vol] 165 mg/dL 74-106 [facility] Work Phone: Comment on above: Slight Lipemia, Resu lt may be falsely increased.Fasting Glucose result greater than or equal to 126 mg/dL suggests DIABETES MELLITUS per A.D.A. criteria. Neutrophils (Bld) [#/Vol] 5.6 10*3/uL 2.0-7.7 [facility] Work Phone: Neutrophils/100 WBC (Bld) 71.4 % 47-70 [facility] Work Phone: Potassium [Moles/Vol] 3.9 mmol/L 3.5-5.1 [facility] Work Phone: Comment on above: Slight Hemolysis, Re sult may be falsely increased.-Slight Lipemia, Result may be falsely increased. Sodium [Moles/Vol] 135 mmol/L 136-145 [facility] Work Phone: WBC (Bld) [#/Vol] 7.9 10*3/uL 4.4-11.0 [facility] Work Phone: Blood erythrocytes count (nu mber/volume)on 01-26-2022 RBC (Bld) [#/Vol] 2.66 10*6/uL 4.6-6.2 [facility] Work Phone: Blood hemoglobin measurement (mass/volume)on 01-26-2022 Hemoglobin (Bld) [Mass/Vol] 8.3 g/dL 13.0-16.5 [facility] Work Phone: Blood lymphocytes/100 leukoc yteson 01-26-2022 Lymphocytes/100 WBC (Bld) 18.8 % 19-41 [facility] Work Phone: Blood monocytes/100 leukocyt eson 01-26-2022 Monocytes/100 WBC (Bld) 7.9 % 0-10 [facility] Work Phone: Blood platelet mean volumeon 01-26-2022 Platelet mean volume (Bld) [Entitic vol] 9.6 fL 6.2-12.0 [facility] Work Phone: Determination of erythrocyte mean corpuscular volume (MCV)on 01-26-2022 MCV (RBC) [Entitic vol] 86.8 fL 80-94 [facility] Work Phone: Hematocrit Auto (Bld) [Volum e fraction]on 01-26-2022 Hematocrit (Bld) [Volume fraction] 23.1 % 40-54 [facility] Work Phone: Laboratory - Chemistry and C hemistry - challengeon 01-26-2022 CO2 [Moles/Vol] 24.0 mmol/L 21.0-32.0 [facility] Work Phone: Comment on above: Slight Lipemia, Resu lt may be falsely increased. Urea nitrogen/Creatinine [Mass ratio] 18.1 mg/mg 10-20 [facility] Work Phone: Laboratory - Hematology and Cell countson 01-26-2022 Erythrocyte distribution width (RBC) [Entitic vol] 38.5 fL 35.1-43.9 [facility] Work Phone: Erythrocyte distribution width (RBC) [Ratio] 12.0 % 11.6-14.6 [facility] Work Phone: Immature granulocytes/100 WBC (Bld) 0.600 % 0.0-0.9 [facility] Work Phone: Comment on above: IG% - Immature Granu locytes (promyelocytes, myelocytes and metamyelocytes) > 1% indicates that a LEFT SHIFT is Present. MCH (RBC) [Entitic mass] 31.2 pg 27.0-32.0 [facility] Work Phone: Nucleated RBC/100 WBC (Bld) [Ratio] 0 % 0-5 [facility] Work Phone: Laboratory - Microbiology an d Antimicrobial susceptibilityon 01-26-2022 Bacteria identified Cx Nom (Bld) No growth in 5 days. [facility] Work Phone: MCHC Auto (RBC) [Mass/Vol]on 01-26-2022 MCHC (RBC) [Mass/Vol] 35.9 g/dL 32-36 [facility] Work Phone: No Panel Informationon 01-26 Estimated Creatinine Clearance Calc 48.33 ml/min [facility] Work Phone: Estimated GFR (MDRD) Amer 54 mL/min >60 [facility] Work Phone: Comment on above: GFR Calc Estimated GFR (MDRD) Non-Af Amer 45 mL/min >60 [facility] Work Phone: Comment on above: Non- GFR Calc Platelets bldon 01-26-2022 Platelets (Bld) [#/Vol] 152 10*3/uL 150-450 [facility] Work Phone: Serum or plasma calcium abhi urement (mass/volume)on 01-26-2022 Calcium [Mass/Vol] 8.1 mg/dL 8.5-10.1 [facility] Work Phone: Comment on above: Slight Lipemia, Resu lt may be falsely increased. Serum or plasma creatinine m easurement (mass/volume)on 01-26-2022 Creatinine [Mass/Vol] 1.71 mg/dL 0.70-1.30 [facility] Work Phone: Comment on above: Slight Lipemia, Resu lt may be falsely increased.The validity of the calculated GFR & GFRAA in patients over 70 years has not been determined. Clinical correlation is essential. Serum or plasma urea nitroge n measurement (mass/volume)on 01-26-2022 Urea nitrogen [Mass/Vol] 31 mg/dL 7-18 [facility] Work Phone: Comment on above: Slight Lipemia, Resu lt may be falsely increased. Thin prep Papanicolaou smear with manual screeningon 01-26-2022 Thin prep Papanicolaou smear with manual screening 8 5-15 [facility] Work Phone: Absolute lymphocyte counton 11-29-2021 Lymphocytes Auto (Unsp spec) [#/Vol] 1.43 10*3/uL 0.83-4.51 [facility] Work Phone: Basophil percentageon 2021 Basophils/100 WBC (Bld) 0.4 % 0-1 [facility] Work Phone: Chloride [Moles/Vol] 107 mmol/L 98-107 [facility] Work Phone: Eosinophils/100 WBC (Bld) 1.8 % 0-5 [facility] Work Phone: [phone] Glucose [Mass/Vol] 225 mg/dL 74-106 [facility] Work Phone: [phone] Comment on above: Glucose result great er than or equal to 200 mg/dLsuggests DIABETES MELLITUS per A.D.A. criteria. Neutrophils (Bld) [#/Vol] 2.7 10*3/uL 2.0-7.7 [facility] Work Phone: Neutrophils/100 WBC (Bld) 58.9 % 47-70 [facility] Work Phone: [phone] Potassium [Moles/Vol] 5.3 mmol/L 3.5-5.1 [facility] Work Phone: Sodium [Moles/Vol] 135 mmol/L 136-145 [facility] Work Phone: WBC (Bld) [#/Vol] 4.5 10*3/uL 4.4-11.0 [facility] Work Phone: Blood erythrocytes count (nu mber/volume)on 11-29-2021 RBC (Bld) [#/Vol] 2.76 10*6/uL 4.6-6.2 [facility] Work Phone: Blood hemoglobin measurement (mass/volume)on 11-29-2021 Hemoglobin (Bld) [Mass/Vol] 8.4 g/dL 13.0-16.5 [facility] Work Phone: Blood lymphocytes/100 leukoc yteson 11-29-2021 Lymphocytes/100 WBC (Bld) 31.6 % 19-41 [facility] Work Phone: Blood monocytes/100 leukocyt eson 11-29-2021 Monocytes/100 WBC (Bld) 6.6 % 0-10 [facility] Work Phone: Blood platelet mean volumeon 11-29-2021 Platelet mean volume (Bld) [Entitic vol] 10.1 fL 6.2-12.0 [facility] Work Phone: Determination of erythrocyte mean corpuscular volume (MCV)on 11-29-2021 MCV (RBC) [Entitic vol] 89.9 fL 80-94 [facility] Work Phone: Hematocrit Auto (Bld) [Volum e fraction]on 11-29-2021 Hematocrit (Bld) [Volume fraction] 24.8 % 40-54 [facility] Work Phone: Laboratory - Chemistry and C hemistry - challengeon 11-29-2021 CO2 [Moles/Vol] 23.0 mmol/L 21.0-32.0 [facility] Work Phone: Urea nitrogen/Creatinine [Mass ratio] 17.0 mg/mg 10-20 [facility] Work Phone: Laboratory - Hematology and Cell countson 11-29-2021 Erythrocyte distribution width (RBC) [Entitic vol] 42.0 fL 35.1-43.9 [facility] Work Phone: Erythrocyte distribution width (RBC) [Ratio] 12.9 % 11.6-14.6 [facility] Work Phone: Immature granulocytes/100 WBC (Bld) 0.700 % 0.0-0.9 [facility] Work Phone: Comment on above: IG% - Immature Granu locytes (promyelocytes, myelocytes and metamyelocytes) > 1% indicates that a LEFT SHIFT is Present. MCH (RBC) [Entitic mass] 30.4 pg 27.0-32.0 [facility] Work Phone: Nucleated RBC/100 WBC (Bld) [Ratio] 0 % 0-5 [facility] Work Phone: MCHC Auto (RBC) [Mass/Vol]on 11-29-2021 MCHC (RBC) [Mass/Vol] 33.9 g/dL 32-36 [facility] Work Phone: No Panel Informationon 11-29 Estimated Creatinine Clearance Calc 51.98 ml/min [facility] Work Phone: Estimated GFR (MDRD) Amer 59 mL/min >60 [facility] Work Phone: Comment on above: GFR Calc Estimated GFR (MDRD) Non-Af Amer 49 mL/min >60 [facility] Work Phone: Comment on above: Non- GFR Calc Platelets bldon 11-29-2021 Platelets (Bld) [#/Vol] 179 10*3/uL 150-450 [facility] Work Phone: Serum or plasma calcium abhi urement (mass/volume)on 11-29-2021 Calcium [Mass/Vol] 8.6 mg/dL 8.5-10.1 [facility] Work Phone: Serum or plasma creatinine m easurement (mass/volume)on 11-29-2021 Creatinine [Mass/Vol] 1.59 mg/dL 0.70-1.30 [facility] Work Phone: Comment on above: The validity of the calculated GFR & GFRAA in patients over 70 years has not been determined. Clinical correlation is essential. Serum or plasma urea nitroge n measurement (mass/volume)on 11-29-2021 Urea nitrogen [Mass/Vol] 27 mg/dL 7-18 [facility] Work Phone: Thin prep Papanicolaou smear with manual screeningon 11-29-2021 Thin prep Papanicolaou smear with manual screening 5 5-15 [facility] Work Phone: Absolute lymphocyte counton 11-21-2021 Lymphocytes Auto (Unsp spec) [#/Vol] 1.67 10*3/uL 0.83-4.51 [facility] Work Phone: Basophil percentageon 2021 Basophils/100 WBC (Bld) 0.6 % 0-1 [facility] Work Phone: Chloride [Moles/Vol] 104 mmol/L 98-107 [facility] Work Phone: Eosinophils/100 WBC (Bld) 1.7 % 0-5 [facility] Work Phone: Glucose [Mass/Vol] 322 mg/dL 74-106 [facility] Work Phone: Comment on above: Glucose result great er than or equal to 200 mg/dLsuggests DIABETES MELLITUS per A.D.A. criteria. Neutrophils (Bld) [#/Vol] 2.6 10*3/uL 2.0-7.7 [facility] Work Phone: Neutrophils/100 WBC (Bld) 54.8 % 47-70 [facility] Work Phone: Potassium [Moles/Vol] 5.0 mmol/L 3.5-5.1 [facility] Work Phone: Sodium [Moles/Vol] 131 mmol/L 136-145 [facility] Work Phone: WBC (Bld) [#/Vol] 4.7 10*3/uL 4.4-11.0 [facility] Work Phone: [phone] Blood erythrocytes count (nu mber/volume)on 11-21-2021 RBC (Bld) [#/Vol] 2.87 10*6/uL 4.6-6.2 [facility] Work Phone: [phone] Blood hemoglobin measurement (mass/volume)on 11-21-2021 Hemoglobin (Bld) [Mass/Vol] 9.1 g/dL 13.0-16.5 [facility] Work Phone: [phone] Blood lymphocytes/100 leukoc yteson 11-21-2021 Lymphocytes/100 WBC (Bld) 35.8 % 19-41 [facility] Work Phone: Blood monocytes/100 leukocyt eson 11-21-2021 Monocytes/100 WBC (Bld) 6.2 % 0-10 [facility] Work Phone: Blood platelet mean volumeon 11-21-2021 Platelet mean volume (Bld) [Entitic vol] 9.8 fL 6.2-12.0 [facility] Work Phone: Determination of erythrocyte mean corpuscular volume (MCV)on 11-21-2021 MCV (RBC) [Entitic vol] 88.5 fL 80-94 [facility] Work Phone: Hematocrit Auto (Bld) [Volum e fraction]on 11-21-2021 Hematocrit (Bld) [Volume fraction] 25.4 % 40-54 [facility] Work Phone: Laboratory - Chemistry and C hemistry - challengeon 11-21-2021 CO2 [Moles/Vol] 20.0 mmol/L 21.0-32.0 [facility] Work Phone: Urea nitrogen/Creatinine [Mass ratio] 25.9 mg/mg 10-20 [facility] Work Phone: Laboratory - Hematology and Cell countson 11-21-2021 Erythrocyte distribution width (RBC) [Entitic vol] 41.5 fL 35.1-43.9 [facility] Work Phone: Erythrocyte distribution width (RBC) [Ratio] 12.8 % 11.6-14.6 [facility] Work Phone: Immature granulocytes/100 WBC (Bld) 0.900 % 0.0-0.9 [facility] Work Phone: Comment on above: IG% - Immature Granu locytes (promyelocytes, myelocytes and metamyelocytes) > 1% indicates that a LEFT SHIFT is Present. MCH (RBC) [Entitic mass] 31.7 pg 27.0-32.0 [facility] Work Phone: Nucleated RBC/100 WBC (Bld) [Ratio] 0 % 0-5 [facility] Work Phone: MCHC Auto (RBC) [Mass/Vol]on 11-21-2021 MCHC (RBC) [Mass/Vol] 35.8 g/dL 32-36 [facility] Work Phone: No Panel Informationon 11-21 Estimated Creatinine Clearance Calc 49.79 ml/min [facility] Work Phone: Estimated GFR (MDRD) Amer 56 mL/min >60 [facility] Work Phone: Comment on above: GFR Calc Estimated GFR (MDRD) Non-Af Amer 46 mL/min >60 [facility] Work Phone: Comment on above: Non- GFR Calc Platelets bldon 11-21-2021 Platelets (Bld) [#/Vol] 196 10*3/uL 150-450 [facility] Work Phone: Serum or plasma calcium abhi urement (mass/volume)on 11-21-2021 Calcium [Mass/Vol] 8.2 mg/dL 8.5-10.1 [facility] Work Phone: Serum or plasma creatinine m easurement (mass/volume)on 11-21-2021 Creatinine [Mass/Vol] 1.66 mg/dL 0.70-1.30 [facility] Work Phone: Comment on above: The validity of the calculated GFR & GFRAA in patients over 70 years has not been determined. Clinical correlation is essential. Serum or plasma urea nitroge n measurement (mass/volume)on 11-21-2021 Urea nitrogen [Mass/Vol] 43 mg/dL 7-18 [facility] Work Phone: Thin prep Papanicolaou smear with manual screeningon 11-21-2021 Thin prep Papanicolaou smear with manual screening 7 5-15 [facility] Work Phone: Iron measurement (mass/mass) on 04-15-2021 Iron (Unsp spec) [Mass/Mass] 92 ug/dL 65-175 [facility] Comment on above: Moderate Hemolysis, Result may be falsely increased. Laboratory - Chemistry and C hemistry - challengeon 04-15-2021 Cobalamin (Vitamin B12) [Mass/Vol] 791 pg/mL 211-911 [facility] No Panel Informationon 04-15 Thyroid Stimulating Hormone (TSH) 1.28 uIU/mL 0.358-3.74 [facility] Total Iron Binding Capacity 307 ug/dL 250-450 [facility] Comment on above: Moderate Hemolysis, Result may be falsely increased. Serum or plasma ferritin ngozi surement (mass/volume)on 04-15-2021 Ferritin [Mass/Vol] 390 ng/mL 26-388 [facility] Serum or plasma iron saturat ion measurement (mass fraction)on 04-15-2021 Iron saturation [Mass fraction] 30.0 % 15.0-55.0 [facility] Absolute lymphocyte counton 04-09-2021 Lymphocytes Auto (Unsp spec) [#/Vol] 1.94 10*3/uL 0.83-4.51 [facility] Work Phone: Basophil percentageon 2020 Bilirubin [Mass/Vol] 0.30 mg/dL 0.20-1.00 [facility] Work Phone: Comment on above: For patients on eltr ombopag therapy, use of Dimension [place] TBIL is not recommended. Chloride [Moles/Vol] 98 mmol/L 98-107 [facility] Work Phone: Eosinophils/100 WBC (Bld) 1.5 % 0-5 [facility] Work Phone: Glucose [Mass/Vol] 264 mg/dL 74-106 [facility] Work Phone: Comment on above: Glucose result great er than or equal to 200 mg/dLsuggests DIABETES MELLITUS per A.D.A. criteria.Please note revised GLUCOSE reference range effective 2017. Neutrophils (Bld) [#/Vol] 3.5 10*3/uL 2.0-7.7 [facility] Work Phone: [phone] Potassium [Moles/Vol] 4.2 mmol/L 3.5-5.1 [facility] Work Phone: Protein [Mass/Vol] 7.8 g/dL 6.4-8.2 [facility] Work Phone: [phone] Sodium [Moles/Vol] 129 mmol/L 136-145 [facility] Work [facility]: WBC (Bld) [#/Vol] 6.0 10*3/uL 4.4-11.0 [facility] Work Phone: Blood erythrocytes count (nu mber/volume)on 04-09-2021 RBC (Bld) [#/Vol] 3.26 10*6/uL 4.6-6.2 [facility] Work Phone: Blood hemoglobin measurement (mass/volume)on 04-09-2021 Hemoglobin (Bld) [Mass/Vol] 10.4 g/dL 13.0-16.5 [facility] Work Phone: Blood lymphocytes/100 leukoc yteson 04-09-2021 Lymphocytes/100 WBC (Bld) 32.5 % 19-41 [facility] Work Phone: Blood monocytes/100 leukocyt eson 04-09-2021 Monocytes/100 WBC (Bld) 4.5 % 0-10 [facility] Work Phone: Blood platelet mean volumeon 04-09-2021 Platelet mean volume (Bld) [Entitic vol] 9.8 fL 6.2-12.0 [facility] Work Phone: Determination of erythrocyte mean corpuscular volume (MCV)on 04-09-2021 MCV (RBC) [Entitic vol] 85.9 fL 80-94 [facility] Work Phone: Hematocrit Auto (Bld) [Volum e fraction]on 04-09-2021 Hematocrit (Bld) [Volume fraction] 28.0 % 40-54 [facility] Work Phone: Laboratory - Chemistry and C hemistry - challengeon 04-09-2021 ALP [Catalytic activity/Vol] 46 U/L 45-117 [facility] Work Phone: ALT [Catalytic activity/Vol] 33 U/L 16-61 [facility] Work Phone: CO2 [Moles/Vol] 25.0 mmol/L 21.0-32.0 [facility] Work Phone: Globulin (S) [Mass/Vol] 4.2 g/dL 2.2-4.2 [facility] Work Phone: Urea nitrogen/Creatinine [Mass ratio] 17.7 mg/mg 10-20 [facility] Work Phone: Laboratory - Hematology and Cell countson 04-09-2021 Basophils/100 WBC (Unsp spec) 0.5 % 0-1 [facility] Work Phone: Erythrocyte distribution width (RBC) [Entitic vol] 37.9 fL 35.1-43.9 [facility] Work Phone: Erythrocyte distribution width (RBC) [Ratio] 12.2 % 11.6-14.6 [facility] Work Phone: Immature granulocytes/100 WBC (Bld) 1.700 % 0.0-0.9 [facility] Work Phone: Comment on above: IG% - Immature Granu locytes (promyelocytes, myelocytes and metamyelocytes) > 1% indicates that a LEFT SHIFT is Present. MCH (RBC) [Entitic mass] 31.9 pg 27.0-32.0 [facility] Work Phone: Neutrophils/100 WBC (Bld) 59.3 % 47-70 [facility] Work Phone: Nucleated RBC/100 WBC (Bld) [Ratio] 0 % 0-5 [facility] Work Phone: MCHC Auto (RBC) [Mass/Vol]on 04-09-2021 MCHC (RBC) [Mass/Vol] 37.1 g/dL 32-36 [facility] Work Phone: No Panel Informationon 04-09 Estimated Creatinine Clearance Calc 63.28 ml/min [facility] Work Phone: Estimated GFR (MDRD) Amer 68 mL/min >60 [facility] Work Phone: [phone] Comment on above: GFR Calc Estimated GFR (MDRD) Non-Af Amer 56 mL/min >60 [facility] Work Phone: Comment on above: Non- GFR Calc Platelets bldon 04-09-2021 Platelets (Bld) [#/Vol] 196 10*3/uL 150-450 [facility] Work Phone: Serum or plasma albumin abhi urement (mass/volume)on 04-09-2021 Albumin [Mass/Vol] 3.6 g/dL 3.2-5.0 [facility] Work Phone: Serum or plasma albumin/glob ulin mass ratioon 04-09-2021 Albumin/Globulin [Mass ratio] 0.9 {ratio} 0.9-2.4 [facility] Work Phone: Serum or plasma calcium abhi urement (mass/volume)on 04-09-2021 Calcium [Mass/Vol] 8.7 mg/dL 8.5-10.1 [facility] Work Phone: Serum or plasma carcinoembry onic antigen measurement (mass/volume)on 04-09-2021 Carcinoembryonic Ag [Mass/Vol] 1.7 ng/mL 0.0-4.7 [facility] Work Phone: Comment on above: Nonsmokers <3.9 Smok ers <5.6[employer] Electrochemiluminescence Immunoassay(ECLIA)Values obtained with different assay methods or kitscannot be used interchangeably. Results cannot beinterpreted as absolute evidence of the presence orabsence of malignant disease.Performed at: [employer] [id number] Director: Bradley Peña PhD, Phone: [phone] Serum or plasma creatinine m easurement (mass/volume)on 04-09-2021 Creatinine [Mass/Vol] 1.41 mg/dL 0.70-1.30 [facility] Work Phone: Comment on above: The validity of the calculated GFR & GFRAA in patients over 70 years has not been determined. Clinical correlation is essential. Serum or plasma urea nitroge n measurement (mass/volume)on 04-09-2021 Urea nitrogen [Mass/Vol] 25 mg/dL 7-18 [facility] Work Phone: Thin prep Papanicolaou smear with manual screeningon 04-09-2021 Thin prep Papanicolaou smear with manual screening 23 U/L 15-37 [facility] Work Phone: Thin prep Papanicolaou smear with manual screening 6 5-15 [facility] Work Phone: Thin prep Papanicolaou smear with manual screening 122 U/L 87-241 [facility] CNOVon 01-29-2021 CNOV Office Visit (NEURGN ) -------- REGINALDO HUFFMAN ([id number]) 1970 M Date Time Provider Department 01/29/21 [...] male from [place] who presents to the [facility] outpatient neurology department with a [...] 1 ML INJECTIONS EVERY 2 WEEKS omega 1-vcl-arq-fish oil 300-400-1,000 mg cap Take 1 capsule by mouth once daily. Multivitamin capsule Take 1 capsule by mouth once daily. alcohol swabs padm Use 8 swabs daily TO CHECK BLOOD SUGAR AND FOR INSULIN INJECTIONS blood sugar diagnostic (FREESTYLE LITE STRIPS) test strip TEST four times a day, IDDM, E11.65 Insulin [place], Disposable, (PEN NEEDLES) 31 gauge x 1/4 [...] MEDICAL HISTORY (more content not included)... Normal [facility] Lilly 01-29-2021 LETITIA Telephone (NEURGN) -------- REGINALDO HUFFMAN ([id number]) 1970 M Date Time Provider Department 01/29/21 ERNESTO MAYO During your visit today, we recorded the following information about you: Shirin Martinez 01/29/2021 3:14 PM Signed Reginaldo decided he would like to set up his MRI Brain wo/w IVCON appointment in the [place] location. He has his order and will [...] Status:Closed by SHIRIN MARTINEZ on 01/29/21 Normal [facility] CRP SerPl-mCncon 01-29-2021 CRP [Mass/Vol] 1.3 mg/dL High <0.9 [facility] Comment on above: Order Comment: Speci men Type: BLOOD SPECIMEN Performed By: #### 1 [id number] #### [facility] CLIA [id number] [place] [address] ESR Westergren method (Bld) [Velocity]on 01-29-2021 ESR (Bld) [Velocity] 40 mm/h High 0-15 [facility] Comment on above: Order Comment: Speci men Type: BLOOD SPECIMEN Performed By: #### 4 [id number] #### [facility] CLIA [id number] [address] [place] [address] CNOVon 12-10-2020 CNOV Office Visit (NEEPBA ) -------- REGINALDO HUFFMAN ([id number]) 1970 M Date Time Provider Department 12/10/20 8:20 AM LIYAH STILL During your visit today, we recorded the following information about you: Pulse Blood pressure Weight Height 75/minute 131/84 95.3 kg 1.727 m Liyah Still MD 12/10/2020 10:29 PM Signed [facility] Neurological [facility] EPILEPSY CLINIC NOTE - RETURN VISIT Chief [...] was not using pillbox. Always goes to [place] ED for seizures; given Dilaudid and something else. Each seizure lasts about 5 hours, left face and arm twitching. He remains aware, is able to talk. One seizure in 2020 so far: 11/14/2020, seen in [place] ED. After IV meds, seizure subsides within [...] were normal. MRI brain was normal at [facility] in 2019. Current AED: CBZ 600 [...] to the house. 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 EXAM Alert, [...] 09/30/2014 12 (more content not included)... Normal [facility] Erythrocyte distribution wid th standard deviationon 10-13-2017 Erythrocyte distribution width (RBC) [Entitic vol] 41.6 fL 35.1-43.9 [facility] Laboratory - Hematology and Cell countson 10-13-2017 Erythrocyte distribution width (RBC) [Ratio] 13.1 % 11.6-14.6 [facility] No Panel Informationon 10-13 Carcinoembryonic Ag Serial Monitor See comment [facility] Comment on above: Scanned image report available in EMR Total cell counton 8 Cells counted Molgen (Bld/Tiss) [#] Not Reportable [facility] Laboratory - Microbiology an d Antimicrobial susceptibility Bacteria identified Cx Nom (Bld) No growth in 5 days. [facility] Work Phone: Vital Signs Date Time Vital Sign Value Performing Clinician Xii rauly 06-30-2025 09:53-0500 Body height 172.72 cm Kimberlyn East MD Work Phone: [facility] 06-30-2025 09:53-0500 Body mass index (BMI) [Ratio] 30.7 kg/m2 Kimberlyn East MD Work Phone: [facility] 06-30-2025 09:53-0500 Body temperature 98 [degF] Kimberlyn East MD Work Phone: [facility] 06-30-2025 09:53-0500 Body weight 91.62 kg Kimberlyn East MD Work Phone: [facility] 06-30-2025 09:53-0500 Diastolic blood pressure 82 mm[Hg] Kimberlyn East MD Work Phone: [facility] 06-30-2025 09:53-0500 Heart rate 60 /min Kimberlyn East MD Work Phone: [facility] 06-30-2025 09:53-0500 Respiratory rate 16 /min Kimberlyn East MD Work Phone: [facility] 06-30-2025 09:53-0500 SaO2% (BldA) [Mass fraction] 98 % Kimberlyn East MD Work Phone: [facility] 06-30-2025 09:53-0500 Systolic blood pressure 211 mm[Hg] Kimberlyn East MD Work Phone: [facility] 06-25-2025 11:22-0400 Body temperature 98.2 [degF] Kimberlyn East MD Work Phone: [facility] 06-25-2025 11:22-0400 Body weight 91.17 kg Kimberlyn East MD Work Phone: [facility] 06-25-2025 11:22-0400 Diastolic blood pressure 82 mm[Hg] Kimberlyn East MD Work Phone: [facility] 06-25-2025 11:22-0400 Heart rate 60 /min Kimberlyn East MD Work Phone: [facility] 06-25-2025 11:22-0400 Respiratory rate 16 /min Kimberlyn East MD Work Phone: [phone] [facility] [place] [address] 06-25-2025 11:22-0400 SaO2% (BldA) [Mass fraction] 99 % Kimberlyn East MD Work Phone: 5(793)545-506554 [address] 06-25-2025 11:22-0400 Systolic blood pressure 139 mm[Hg] Kimberlyn East MD Work Phone: 8(053)772-462738 [place] [address] 06-18-2025 10:44-0400 Body mass index (BMI) [Ratio] 30.9 kg/m2 Kimberlyn East MD Work Phone: 0(972)154-435536 [place] [address] 06-18-2025 10:44-0400 Body weight 92.07 kg Kimberlyn East MD Work Phone: 7(390)762-995338 [place] [address] 06-18-2025 10:44-0400 Diastolic blood pressure 75 mm[Hg] Kimberlyn East MD Work Phone: 7(324)322-415736 [place] [address] 06-18-2025 10:44-0400 Heart rate 66 /min Kimberlyn East MD Work Phone: 0(480)601-023736 [place] [address] 06-18-2025 10:44-0400 SaO2% (BldA) [Mass fraction] 98 % Kimberlyn East MD Work Phone: 5(188)408-774436 [place] [address] 06-18-2025 10:44-0400 Systolic blood pressure 145 mm[Hg] Kimberlyn East MD Work Phone: [facility] 06-04-2025 08:21-0400 Body height 172.72 cm Kimberlyn East MD Work Phone: [facility] 06-04-2025 08:21-0400 Body weight 90.26 kg Kimberlyn East MD Work Phone: [facility] 06-03-2025 07:55-0400 Body mass index (BMI) [Ratio] 30.2 kg/m2 Kimberlyn East MD Work Phone: [facility] 04-23-2025 14:30-0400 Body height 172.7 cm Lillian Sobotka DO Work Phone: [facility] 04-23-2025 14:30-0400 Body mass index (BMI) [Ratio] 30.35 kg/m2 Lillian Sobotka DO Work Phone: [facility] 04-23-2025 14:30-0400 Body weight 90.54 kg Lillian Sobotka DO Work Phone: [facility] 04-23-2025 14:30-0400 Diastolic blood pressure 80 mm[Hg] Lillian Sobotka DO Work Phone: [facility] 04-23-2025 14:30-0400 Heart rate 69 /min Lillian Sobotka DO Work Phone: [facility] 04-23-2025 14:30-0400 SaO2% (BldA) [Mass fraction] 99 % Lillian Sobotka DO Work Phone: [facility] 04-23-2025 14:30-0400 Systolic blood pressure 136 mm[Hg] Lillian Sobotka DO Work Phone: [facility] 04-23-2025 13:19-0400 Diastolic blood pressure 81 mm[Hg] Lillian Sobotka DO Work Phone: [facility] 04-23-2025 13:19-0400 Heart rate 65 /min Lillian Sobotka DO Work Phone: [facility] 04-23-2025 13:19-0400 Systolic blood pressure 180 mm[Hg] Lillian Sobotka DO Work Phone: [facility] 04-21-2025 07:50-0400 Body height 172.72 cm Kimberlyn East MD Work Phone: [facility] 04-21-2025 07:50-0400 Body mass index (BMI) [Ratio] 30.9 kg/m2 Kimberlyn East MD Work Phone: [facility] 04-21-2025 07:50-0400 Body temperature 98.2 [degF] Kimberlyn East MD Work Phone: [facility] 04-21-2025 07:50-0400 Body weight 92.07 kg Kimberlyn East MD Work Phone: [facility] 04-21-2025 07:50-0400 Diastolic blood pressure 86 mm[Hg] Kimberlyn East MD Work Phone: [facility] 04-21-2025 07:50-0400 Heart rate 66 /min Kimberlyn East MD Work Phone: [facility] 04-21-2025 07:50-0400 Respiratory rate 15 /min Kimberlyn East MD Work Phone: [facility] 04-21-2025 07:50-0400 SaO2% (BldA) [Mass fraction] 98 % Kimberlyn East MD Work Phone: [facility] 04-21-2025 07:50-0400 Systolic blood pressure 200 mm[Hg] Kimberlyn East MD Work Phone: [facility] 02-21-2025 08:38-0400 Body temperature 98.2 [degF] Kimberlyn East MD Work Phone: [facility] 02-21-2025 08:38-0400 Body weight 90.26 kg Kimberlyn East MD Work Phone: [facility] 02-21-2025 08:38-0400 Diastolic blood pressure 82 mm[Hg] Kimberlyn East MD Work Phone: [facility] 02-21-2025 08:38-0400 Heart rate 69 /min Kimberlyn East MD Work Phone: [facility] 02-21-2025 08:38-0400 Respiratory rate 16 /min Kimberlyn East MD Work Phone: [facility] 02-21-2025 08:38-0400 SaO2% (BldA) [Mass fraction] 98 % Kimberlyn East MD Work Phone: [facility] 02-21-2025 08:38-0400 Systolic blood pressure 179 mm[Hg] Kimberlyn East MD Work Phone: [facility] 01-27-2025 16:15-0400 Diastolic blood pressure 89 mm[Hg] Interventional Ihisschedule Work Phone: [facility] 01-27-2025 16:15-0400 Systolic blood pressure 188 mm[Hg] Interventional [employer] Work Phone: [facility] 01-27-2025 15:00-0400 Heart rate 62 /min Interventional [employer] Work Phone: [facility] 01-27-2025 15:00-0400 SaO2% (BldA) [Mass fraction] 99 % Interventional [employer] Work Phone: [facility] 01-27-2025 13:32-0400 Body temperature 97.81 [degF] Interventional [employer] Work Phone: [facility] 01-27-2025 13:10-0400 Respiratory rate 8 /min Interventional [employer] Work Phone: [facility] 12-25-2024 14:10-0400 Body height 172.7 cm Lillian Hall DO Work Phone: [facility] 12-25-2024 14:10-0400 Body mass index (BMI) [Ratio] 30.23 kg/m2 Lillian Sobotka DO Work Phone: [facility] 12-25-2024 14:10-0400 Body weight 90.17 kg Lillian Sobotka DO Work Phone: [facility] 12-25-2024 14:10-0400 Diastolic blood pressure 68 mm[Hg] Lillian Sobotka DO Work Phone: [facility] 12-25-2024 14:10-0400 Heart rate 70 /min Lillian Sobotka DO Work Phone: [facility] 12-25-2024 14:10-0400 Respiratory rate 16 /min Lillian Sobotka DO Work Phone: [facility] 12-25-2024 14:10-0400 SaO2% (BldA) [Mass fraction] 96 % Lillian Sobotka DO Work Phone: [facility] 12-25-2024 14:10-0400 Systolic blood pressure 160 mm[Hg] Lillian Sobotka DO Work Phone: [facility] 12-20-2024 09:38-0400 Body temperature 98 [degF] Kimberlyn East MD Work Phone: [facility] 12-20-2024 09:38-0400 Body weight 90.49 kg Kimberlyn East MD Work Phone: [facility] 12-20-2024 09:38-0400 Diastolic blood pressure 72 mm[Hg] Kimberlyn East MD Work Phone: [facility] 12-20-2024 09:38-0400 Heart rate 64 /min Kimberlyn East MD Work Phone: [facility] 12-20-2024 09:38-0400 Respiratory rate 17 /min Kimberlyn East MD Work Phone: [facility] 12-20-2024 09:38-0400 SaO2% (BldA) [Mass fraction] 96 % Kimberlyn East MD Work Phone: [facility] 12-20-2024 09:38-0400 Systolic blood pressure 137 mm[Hg] Kimberlyn East MD Work Phone: [facility] 12-18-2024 10:33-0400 Body height 172.72 cm Kimberlyn East MD Work Phone: [facility] 12-18-2024 10:33-0400 Body mass index (BMI) [Ratio] 30.7 kg/m2 Kimberlyn East MD Work Phone: [facility] 12-18-2024 10:33-0400 Body weight 91.68 kg Kimberlyn East MD Work Phone: [facility] 12-18-2024 10:33-0400 Diastolic blood pressure 77 mm[Hg] Kimberlyn East MD Work Phone: [facility] 12-18-2024 10:33-0400 Heart rate 64 /min Kimberlyn East MD Work Phone: [facility] 12-18-2024 10:33-0400 SaO2% (BldA) [Mass fraction] 99 % Kimberlyn East MD Work Phone: [facility] 12-18-2024 10:33-0400 Systolic blood pressure 144 mm[Hg] Kimberlyn East MD Work Phone: [facility] 12-13-2024 09:52-0400 Body height 172.7 cm Tyrese PEARL Work Phone: [facility] 12-13-2024 09:52-0400 Body mass index (BMI) [Ratio] 29.8 kg/m2 Tyrese PEARL Work Phone: [facility] 12-13-2024 09:52-0400 Body weight 88.91 kg Tyrese PEARL Work Phone: [facility] 12-13-2024 09:52-0400 Diastolic blood pressure 85 mm[Hg] Tyrese Anisa MBBS Work Phone: [facility] 12-13-2024 09:52-0400 Heart rate 63 /min Tyrese Anisa MBBS Work Phone: [facility] 12-13-2024 09:52-0400 Systolic blood pressure 166 mm[Hg] Tyrese Anisa MBBS Work Phone: [facility] 12-11-2024 09:41-0400 Body height 172.7 cm Tyrese Anisa MBBS Work Phone: [facility] 12-11-2024 09:41-0400 Body mass index (BMI) [Ratio] 29.95 kg/m2 Tyrese Anisa MBBS Work Phone: [facility] 12-11-2024 09:41-0400 Body weight 89.36 kg Tyrese Anisa MBBS Work Phone: [facility] 12-11-2024 09:41-0400 Diastolic blood pressure 70 mm[Hg] Tyrese Anisa MBBS Work Phone: [facility] 12-11-2024 09:41-0400 Heart rate 67 /min Tyrese Anisa MBBS Work Phone: [facility] 12-11-2024 09:41-0400 Systolic blood pressure 135 mm[Hg] Tyrese Anisa MBBS Work Phone: [facility] 11-08-2024 11:16-0400 Body height 172.7 cm Tyrese Anisa MBBS Work Phone: [facility] 11-08-2024 11:16-0400 Body mass index (BMI) [Ratio] 29.8 kg/m2 Tyrese Anisa MBBS Work Phone: [facility] 11-08-2024 11:16-0400 Body temperature 97.5 [degF] Tyrese Lui MBBS Work Phone: [facility] 11-08-2024 11:16-0400 Body weight 88.91 kg Tyrese Lui MBBS Work Phone: [facility] 11-08-2024 11:16-0400 Diastolic blood pressure 78 mm[Hg] Tyrese Lui MBBS Work Phone: [facility] 11-08-2024 11:16-0400 Heart rate 64 /min Tyrese Lui MBBS Work Phone: [facility] 11-08-2024 11:16-0400 Systolic blood pressure 160 mm[Hg] Tyrese Lui MBBS Work Phone: [facility] 10-30-2024 07:46-0500 Body weight 92.07 kg Kimberlyn East MD Work Phone: [facility] 10-29-2024 12:46-0500 Body mass index (BMI) [Ratio] 30.9 kg/m2 Kimberlyn East MD Work Phone: [facility] 08-14-2024 11:05-0500 Body weight 91.31 kg Kimberlyn East MD Work Phone: [facility] 07-02-2024 16:25-0500 Body temperature 96.6 [degF] Kimberlyn East MD Work Phone: [facility] 07-02-2024 16:25-0500 Diastolic blood pressure 94 mm[Hg] Kimberlyn East MD Work Phone: [facility] 07-02-2024 16:25-0500 Heart rate 67 /min Kimberlyn East MD Work Phone: [facility] 07-02-2024 16:25-0500 Respiratory rate 16 /min Kimberlyn East MD Work Phone: [facility] 07-02-2024 16:25-0500 SaO2% (BldA) [Mass fraction] 100 % Kimberlyn East MD Work Phone: [facility] 07-02-2024 16:25-0500 Systolic blood pressure 202 mm[Hg] Kimberlyn East MD Work Phone: [facility] 07-02-2024 13:28-0500 Body mass index (BMI) [Ratio] 30.7 kg/m2 Kimberlyn East MD Work Phone: [facility] 12-18-2023 17:16-0400 Body temperature 94.9 [degF] DO Luciana Jose Work Phone: [facility] 12-18-2023 17:16-0400 Diastolic blood pressure 92 mm[Hg] DO Luciana Ojse Work Phone: [facility] 12-18-2023 17:16-0400 Heart rate 84 /min DO Luciana Jose Work Phone: [facility] 12-18-2023 17:16-0400 Respiratory rate 16 /min DO Luciana Jose Work Phone: [facility] 12-18-2023 17:16-0400 SaO2% (BldA) [Mass fraction] 97 % DO Luciana Jose Work Phone: [facility] 12-18-2023 17:16-0400 Systolic blood pressure 137 mm[Hg] DO Luciana Jose Work Phone: [facility] 12-18-2023 14:15-0400 Body height 173 cm DO Luciana Jose Work Phone: [facility] 12-18-2023 14:15-0400 Body mass index (BMI) [Ratio] 31.2 kg/m2 DO Luciana Jose Work Phone: [facility] 12-18-2023 14:15-0400 Body weight 93.44 kg DO Luciana Jose Work Phone: [facility] 12-12-2023 10:50-0400 Body height 172.72 cm DO Luciana Jose Work Phone: [facility] 12-12-2023 10:50-0400 Body mass index (BMI) [Ratio] 31 kg/m2 DO Luciana Jose Work Phone: [facility] 12-12-2023 10:50-0400 Body weight 92.53 kg DO Luciana Jose Work Phone: [facility] 12-09-2023 09:48-0400 Body temperature 98.6 [degF] DO Luciana Jose Work Phone: [facility] 12-09-2023 09:48-0400 Diastolic blood pressure 80 mm[Hg] DO Luciana Jose Work Phone: [facility] 12-09-2023 09:48-0400 Heart rate 76 /min DO Luciana Jose Work Phone: [facility] 12-09-2023 09:48-0400 Respiratory rate 16 /min DO Luciana Jose Work Phone: [facility] 12-09-2023 09:48-0400 SaO2% (BldA) [Mass fraction] 100 % DO Luciana Jose Work Phone: [facility] 12-09-2023 09:48-0400 Systolic blood pressure 158 mm[Hg] DO Luciana Jose Work Phone: [facility] 12-09-2023 06:00-0400 Body mass index (BMI) [Ratio] 30.4 kg/m2 DO Luciana Jose Work Phone: [facility] 12-09-2023 06:00-0400 Body weight 90.7 kg DO Luciana Jose Work Phone: [facility] 12-08-2023 14:36-0400 Body height 172.72 cm DO Luciana Jose Work Phone: [facility] 12-07-2023 22:23-0400 SaO2% (BldA) [Mass fraction] 100 % DO Luciana Jose Work Phone: [facility] 12-07-2023 22:11-0400 Body height 172.72 cm DO Luciana Jose Work Phone: [facility] 12-07-2023 22:11-0400 Body mass index (BMI) [Ratio] 30.5 kg/m2 DO Luciana Jose Work Phone: [facility] 12-07-2023 22:11-0400 Body weight 91.1 kg DO Luciana Jose Work Phone: [facility] 12-07-2023 22:00-0400 Body temperature 98.6 [degF] DO Luciana Jose Work Phone: [facility] 12-07-2023 22:00-0400 Diastolic blood pressure 77 mm[Hg] DO Luciana Jose Work Phone: [facility] 12-07-2023 22:00-0400 Heart rate 82 /min DO Luciana Jose Work Phone: [facility] 12-07-2023 22:00-0400 Respiratory rate 18 /min DO Luciana Jose Work Phone: [facility] 12-07-2023 22:00-0400 Systolic blood pressure 149 mm[Hg] DO Luciana Jose Work Phone: [facility] 12-07-2023 10:58-0400 Body mass index (BMI) [Ratio] 31 kg/m2 DO Luciana Jose Work Phone: [facility] 12-07-2023 10:58-0400 Body temperature 98 [degF] DO Luciana Jose Work Phone: [facility] 12-07-2023 10:58-0400 Body weight 92.53 kg DO Luciana Jose Work Phone: [facility] 12-07-2023 10:58-0400 Diastolic blood pressure 97 mm[Hg] DO Luciana Jose Work Phone: [facility] 12-07-2023 10:58-0400 Heart rate 63 /min DO Luciana Jose Work Phone: [facility] 12-07-2023 10:58-0400 SaO2% (BldA) [Mass fraction] 99 % DO Luciana Jose Work Phone: [facility] 12-07-2023 10:58-0400 Systolic blood pressure 161 mm[Hg] DO Luciana Jose Work Phone: [facility] 11-30-2023 11:19-0400 Body mass index (BMI) [Ratio] 31.2 kg/m2 DO Luciana Jose Work Phone: [facility] 11-30-2023 11:19-0400 Body temperature 97.6 [degF] DO Luciana Jose Work Phone: [facility] 11-30-2023 11:19-0400 Body weight 93.24 kg DO Luciana Jose Work Phone: [facility] 11-30-2023 11:19-0400 Diastolic blood pressure 101 mm[Hg] DO Luciana Jose Work Phone: [facility] 11-30-2023 11:19-0400 Heart rate 67 /min DO Luciana Jose Work Phone: [facility] 11-30-2023 11:19-0400 Respiratory rate 18 /min DO Luciana Jose Work Phone: [facility] 11-30-2023 11:19-0400 SaO2% (BldA) [Mass fraction] 100 % DO Luciana Jose Work Phone: [facility] 11-30-2023 11:19-0400 Systolic blood pressure 202 mm[Hg] DO Luciana Jose Work Phone: [facility] 11-03-2023 13:30-0500 Diastolic blood pressure 78 mm[Hg] Dr. Chriss Cruz Work Phone: 0(534)264-416371 [place] [address] 11-03-2023 13:30-0500 Heart rate 65 /min Dr. Chriss Cruz Work Phone: 7(967)122-411705 [place] [address] 11-03-2023 13:30-0500 Respiratory rate 16 /min Dr. Chriss Cruz Work Phone: 8(692)878-180305 [place] [address] 11-03-2023 13:30-0500 SaO2% (BldA) [Mass fraction] 98 % Dr. Chriss Cruz Work Phone: 0(440)853-029505 [place] [address] 11-03-2023 13:30-0500 Systolic blood pressure 187 mm[Hg] Dr. Chriss Cruz Work Phone: 4(712)766-234905 [place] [address] 10-16-2023 11:11-0500 Body temperature 97.6 [degF] Dr. Chriss Cruz Work Phone: 4(109)726-333205 [place] [address] 10-16-2023 11:11-0500 Diastolic blood pressure 64 mm[Hg] Dr. Chriss Cruz Work Phone: 9(519)531-346605 [place] [address] 10-16-2023 11:11-0500 Heart rate 64 /min Dr. Chriss Cruz Work Phone: 8(508)618-144105 [place] [address] 10-16-2023 11:11-0500 Respiratory rate 16 /min Dr. Chriss Cruz Work Phone: 2(095)718-263105 [place] [address] 10-16-2023 11:11-0500 SaO2% (BldA) [Mass fraction] 99 % Dr. Chriss Cruz Work Phone: 4(868)270-508905 [place] [address] 10-16-2023 11:11-0500 Systolic blood pressure 170 mm[Hg] Dr. Chriss Cruz Work Phone: 6(874)058-595605 [place] [address] 10-16-2023 08:35-0500 Body height 172.[address] Chriss Cruz Work Phone: 9(764)743-055005 [place] [address] 10-16-2023 08:35-0500 Body mass index (BMI) [Ratio] 32.7 kg/m2 Dr. Chriss Cruz Work Phone: 1(744)997-105705 [place] [address] 10-16-2023 08:35-0500 Body weight 97.[address] Chriss Cruz Work Phone: 8(510)847-098505 [place] [address] 08-09-2023 14:34-0500 Diastolic blood pressure 89 mm[Hg] Dr. Chriss Cruz Work Phone: 4(106)161-995805 [place] [address] 08-09-2023 14:34-0500 Heart rate 72 /min Dr. Chriss Cruz Work Phone: 8(688)928-778405 [place] [address] 08-09-2023 14:34-0500 Respiratory rate 14 /min Dr. Chriss Cruz Work Phone: 4(563)715-765205 [place] [address] 08-09-2023 14:34-0500 SaO2% (BldA) [Mass fraction] 99 % Dr. Chriss Cruz Work Phone: 9(360)360-034505 [place] [address] 08-09-2023 14:34-0500 Systolic blood pressure 178 mm[Hg] Dr. Chriss Cruz Work Phone: 2(726)583-375605 [place] [address] 08-09-2023 13:35-0500 Body height 172.[address] Chriss Cruz Work Phone: 6(510)541-006005 [place] [address] 08-09-2023 13:35-0500 Body mass index (BMI) [Ratio] 32.6 kg/m2 Dr. Chriss Cruz Work Phone: 9(758)292-995205 [place] [address] 08-09-2023 13:35-0500 Body temperature 98.4 [degF] Dr. Chriss Cruz Work Phone: 5(015)425-981205 [place] [address] 08-09-2023 13:35-0500 Body weight 97.[address] Chriss Cruz Work Phone: 6(556)781-480005 [place] [address] 08-02-2023 07:55-0500 Body temperature 97.6 [degF] Dr. Chriss Cruz Work Phone: 8(389)783-388705 [place] [address] 08-02-2023 07:55-0500 Diastolic blood pressure 91 mm[Hg] Dr. Chriss Cruz Work Phone: 4(145)234-878305 [place] [address] 08-02-2023 07:55-0500 Heart rate 73 /min Dr. Chriss Cruz Work Phone: 1(651)927-780505 [place] [address] 08-02-2023 07:55-0500 Respiratory rate 16 /min Dr. Chriss Cruz Work Phone: 4(705)394-576205 [place] [address] 08-02-2023 07:55-0500 SaO2% (BldA) [Mass fraction] 99 % Dr. Chriss Cruz Work Phone: 7(945)576-557005 [place] [address] 08-02-2023 07:55-0500 Systolic blood pressure 155 mm[Hg] Dr. Chriss Cruz Work Phone: 9(961)283-006805 [place] [address] 08-02-2023 06:54-0500 Body height 172.[address] Chriss Cruz Work Phone: 5(452)056-457405 [place] [address] 08-02-2023 06:54-0500 Body mass index (BMI) [Ratio] 32.5 kg/m2 Dr. Chriss Cruz Work Phone: 6(269)160-100705 [place] [address] 08-02-2023 06:54-0500 Body weight [address] Chriss Cruz Work Phone: 0(991)097-122905 [place] [address] 07-12-2023 09:51-0500 Body height 172.[address] Chriss Cruz Work Phone: 9(485)015-131305 [place] [address] 07-12-2023 09:51-0500 Body mass index (BMI) [Ratio] 33 kg/m2 Dr. Chriss Cruz Work Phone: 0(641)821-462478 [address] 07-12-2023 09:51-0500 Body temperature 98.6 [degF] Dr. Chriss Cruz Work Phone: 8(483)667-290105 [place] [address] 07-12-2023 09:51-0500 Body weight 98.[address] Chriss Cruz Work Phone: 1(784)189-833305 [place] [address] 07-12-2023 09:51-0500 Diastolic blood pressure 80 mm[Hg] Dr. Chriss Cruz Work Phone: 9(985)766-708571 [place] [address] 07-12-2023 09:51-0500 Heart rate 77 /min Dr. Chriss Cruz Work Phone: [facility] 07-12-2023 09:51-0500 Respiratory rate 17 /min Dr. Chriss Cruz Work Phone: [facility] 07-12-2023 09:51-0500 SaO2% (BldA) [Mass fraction] 99 % Dr. Chriss Cruz Work Phone: [facility] 07-12-2023 09:51-0500 Systolic blood pressure 161 mm[Hg] Dr. Chriss Cruz Work Phone: [facility] 06-23-2023 15:26-0400 Diastolic blood pressure 88 mm[Hg] [facility] BUSINESS PROJECT MANAGER.[employer] Work Phone: [facility] 06-23-2023 15:26-0400 Systolic blood pressure 162 mm[Hg] Candy Kupiec BUSINESS PROJECT MANAGER.[employer] WORK[employer] Work Phone: [facility] 06-23-2023 14:58-0400 Body height 172.7 [facility] PROJECT MANAGER.[employer] WORK[employer] Work Phone: [facility] 06-23-2023 14:58-0400 Body weight 97.5 kg [facility] BUSINESS PROJECT MANAGER.[employer] WORK[employer] Work Phone: [facility] 06-23-2023 14:58-0400 Heart rate 71 /min [facility] BUSINESS PROJECT MANAGER.[employer] WORK[employer] Work Phone: [facility] 06-23-2023 14:58-0400 SaO2% (BldA) [Mass fraction] 99 % [facility] PROJECT MANAGER.[employer] WORK[employer] Work Phone: [facility] 06-07-2023 11:21-0400 Body mass index (BMI) [Ratio] 32.3 kg/m2 Dr. Chriss Cruz Work Phone: [facility] 06-07-2023 11:21-0400 Body temperature 98.8 [degF] Dr. Chriss Cruz Work Phone: [facility] 06-07-2023 11:21-0400 Body weight 96.[address] Chriss Cruz Work Phone: 7(903)126-257271 [place] [address] 06-07-2023 11:21-0400 Diastolic blood pressure 89 mm[Hg] Dr. Chriss Cruz Work Phone: 6(284)777-802071 [place] [address] 06-07-2023 11:21-0400 Heart rate 74 /min Dr. Chriss Cruz Work Phone: 0(770)568-830571 [place] [address] 06-07-2023 11:21-0400 Respiratory rate 18 /min Dr. Chriss Cruz Work Phone: 2(011)157-000605 [place] [address] 06-07-2023 11:21-0400 SaO2% (BldA) [Mass fraction] 100 % Dr. Chriss Cruz Work Phone: 8(500)923-239271 [place] [address] 06-07-2023 11:21-0400 Systolic blood pressure 189 mm[Hg] Dr. Chriss Cruz Work Phone: 4(047)238-333405 [place] [address] 05-25-2023 16:49-0400 Diastolic blood pressure 82 mm[Hg] Dr. Chriss Cruz Work Phone: 9(278)159-103505 [place] [address] 05-25-2023 16:49-0400 Systolic blood pressure 172 mm[Hg] Dr. Chriss Cruz Work Phone: 2(950)078-139871 [place] [address] 05-25-2023 16:35-0400 Heart rate 70 /min Dr. Chriss Cruz Work Phone: 6(030)443-426471 [place] [address] 05-25-2023 16:35-0400 Respiratory rate 12 /min Dr. Chriss Cruz Work Phone: 3(271)796-444571 [place] [address] 05-25-2023 16:35-0400 SaO2% (BldA) [Mass fraction] 98 % Dr. Chriss Cruz Work Phone: 7(088)412-199671 [place] [address] 05-25-2023 11:53-0400 Body mass index (BMI) [Ratio] 32.8 kg/m2 Dr. Chriss Cruz Work Phone: 4(564)496-842671 [place] [address] 05-25-2023 11:53-0400 Body temperature 97.4 [degF] Dr. Chriss Cruz Work Phone: 0(810)714-461071 [place] [address] 05-25-2023 11:53-0400 Body weight 97.[address] Chriss Cruz Work Phone: 1(666)647-993505 [place] [address] 05-25-2023 11:23-0400 Body mass index (BMI) [Ratio] 32.8 kg/m2 Dr. hCriss Cruz Work Phone: 2(094)924-021905 [place] [address] 05-25-2023 11:23-0400 Body temperature 98.9 [degF] Dr. Chriss Cruz Work Phone: 5(717)413-555305 [place] [address] 05-25-2023 11:23-0400 Body weight 98.[address] Chriss Cruz Work Phone: 5(780)724-378305 [place] [address] 05-25-2023 11:23-0400 Diastolic blood pressure 104 mm[Hg] Dr. Chriss Cruz Work Phone: 1(725)744-464705 [place] [address] 05-25-2023 11:23-0400 Heart rate 63 /min Dr. Chriss Cruz Work Phone: 6(718)155-617305 [place] [address] 05-25-2023 11:23-0400 Respiratory rate 18 /min Dr. Chriss Cruz Work Phone: 3(088)485-028205 [place] [address] 05-25-2023 11:23-0400 SaO2% (BldA) [Mass fraction] 99 % Dr. Chriss Cruz Work Phone: 6(954)763-351205 [place] [address] 05-25-2023 11:23-0400 Systolic blood pressure 216 mm[Hg] Dr. Chriss Cruz Work Phone: 3(541)395-432405 [place] [address] 05-22-2023 16:01-0400 Diastolic blood pressure 65 mm[Hg] Dr. Chriss Cruz Work Phone: 0(894)345-641205 [address] [place] [address] 05-22-2023 16:01-0400 Heart rate 78 /min Dr. Chriss Cruz Work Phone: 0(538)171-316505 [place] [address] 05-22-2023 16:01-0400 Systolic blood pressure 165 mm[Hg] Dr. Chriss Cruz Work Phone: 0(977)455-918805 [place] [address] 05-22-2023 15:33-0400 Body temperature 97.6 [degF] Dr. Chriss Cruz Work Phone: 1(403)770-181205 [place] [address] 05-22-2023 15:33-0400 Respiratory rate 16 /min Dr. Chriss Cruz Work Phone: 7(119)028-183405 [place] [address] 05-22-2023 15:33-0400 SaO2% (BldA) [Mass fraction] 100 % Dr. Chriss Cruz Work Phone: 0(963)260-619005 [place] [address] 05-22-2023 13:30-0400 Body mass index (BMI) [Ratio] 32.1 kg/m2 Dr. Chriss Cruz Work Phone: 5(139)383-988905 [place] [address] 05-11-2023 12:58-0400 Body mass index (BMI) [Ratio] 32.1 kg/m2 Dr. Chriss Cruz Work Phone: 6(732)939-394405 [place] [address] 05-11-2023 12:58-0400 Body temperature 98.6 [degF] Dr. Chriss Cruz Work Phone: 9(000)525-387405 [place] [address] 05-11-2023 12:58-0400 Body weight 95.[address] Chriss Cruz Work Phone: 3(387)894-276705 [place] [address] 05-11-2023 12:58-0400 Diastolic blood pressure 85 mm[Hg] Dr. Chriss Cruz Work Phone: 2(351)056-008505 [place] [address] 05-11-2023 12:58-0400 Heart rate 70 /min Dr. Chriss Cruz Work Phone: 5(843)841-677305 [place] [address] 05-11-2023 12:58-0400 Respiratory rate 18 /min Dr. Chriss Cruz Work Phone: 0(529)263-614705 [place] [address] 05-11-2023 12:58-0400 SaO2% (BldA) [Mass fraction] 100 % Dr. Chriss Cruz Work Phone: 9(366)906-872805 [place] [address] 05-11-2023 12:58-0400 Systolic blood pressure 170 mm[Hg] Dr. Chriss Cruz Work Phone: 3(552)136-571405 [place] [address] 05-03-2023 10:15-0400 Body mass index (BMI) [Ratio] 32.7 kg/m2 Dr. Chriss Cruz Work Phone: 4(020)055-229505 [place] [address] 05-03-2023 10:15-0400 Body temperature 98.2 [degF] Dr. Chriss Cruz Work Phone: 5(952)176-328205 [place] [address] 05-03-2023 10:15-0400 Body weight 97.[address] Chriss Cruz Work Phone: 6(259)779-163005 [place] [address] 05-03-2023 10:15-0400 Diastolic blood pressure 84 mm[Hg] Dr. Chriss Cruz Work Phone: 0(277)559-102905 [place] [address] 05-03-2023 10:15-0400 Heart rate 72 /min Dr. Chriss Cruz Work Phone: 5(960)778-402005 [place] [address] 05-03-2023 10:15-0400 Respiratory rate 18 /min Dr. Chriss Cruz Work Phone: 3(406)868-927605 [place] [address] 05-03-2023 10:15-0400 SaO2% (BldA) [Mass fraction] 97 % Dr. Chriss Cruz Work Phone: 6(300)641-376505 [place] [address] 05-03-2023 10:15-0400 Systolic blood pressure 172 mm[Hg] Dr. Chriss Cruz Work Phone: 0(518)274-529205 [place] [address] 04-27-2023 14:34-0400 Diastolic blood pressure 88 mm[Hg] Dr. Chriss Cruz Work Phone: 8(338)498-149805 [place] [address] 04-27-2023 14:34-0400 Systolic blood pressure 158 mm[Hg] Dr. Chriss Cruz Work Phone: 6(157)030-901605 [place] [address] 04-27-2023 13:59-0400 Body mass index (BMI) [Ratio] 31.9 kg/m2 Dr. Chriss Cruz Work Phone: 0(850)606-618705 [place] [address] 04-27-2023 13:59-0400 Body temperature 98.6 [degF] Dr. Chriss Cruz Work Phone: 6(880)716-320405 [place] [address] 04-27-2023 13:59-0400 Body weight 95.[address] Chriss Cruz Work Phone: 8(866)237-234771 [place] [address] 04-27-2023 13:59-0400 Heart rate 71 /min Dr. Chriss Cruz Work Phone: 7(741)654-953205 [place] [address] 04-27-2023 13:59-0400 Respiratory rate 18 /min Dr. Chriss Cruz Work Phone: 6(112)602-283705 [place] [address] 04-27-2023 13:59-0400 SaO2% (BldA) [Mass fraction] 99 % Dr. Chriss Cruz Work Phone: 4(516)220-057005 [place] [address] 03-16-2023 14:29-0400 Body height 172.[address] Chriss Cruz Work Phone: 9(904)728-632105 [place] [address] 03-16-2023 14:27-0400 Body mass index (BMI) [Ratio] 32.5 kg/m2 Dr. Chriss Cruz Work Phone: 3(713)295-133005 [place] [address] 03-16-2023 14:27-0400 Body temperature 97.4 [degF] Dr. Chriss Cruz Work Phone: 1(135)061-931805 [place] [address] 03-16-2023 14:27-0400 Body weight 97.[address] Chriss Cruz Work Phone: 3(395)235-397905 [place] [address] 03-16-2023 14:27-0400 Diastolic blood pressure 82 mm[Hg] Dr. Chriss Cruz Work Phone: 4(686)419-562505 [place] [address] 03-16-2023 14:27-0400 Heart rate 66 /min Dr. Chriss Cruz Work Phone: 0(632)329-767605 [place] [address] 03-16-2023 14:27-0400 Respiratory rate 16 /min Dr. Chriss Cruz Work Phone: 3(385)107-004605 [place] [address] 03-16-2023 14:27-0400 SaO2% (BldA) [Mass fraction] 99 % Dr. Chriss Cruz Work Phone: 8(256)736-293305 [place] [address] 03-16-2023 14:27-0400 Systolic blood pressure 178 mm[Hg] Dr. Chriss Cruz Work Phone: 6(728)182-192105 [place] [address] 02-14-2023 14:37-0400 Body temperature 97.4 [degF] Dr. Chriss Cruz Work Phone: [facility] 02-14-2023 14:37-0400 Diastolic blood pressure 84 mm[Hg] Dr. Chriss Cruz Work Phone: [facility] 02-14-2023 14:37-0400 Heart rate 70 /min Dr. Chriss Cruz Work Phone: [facility] 02-14-2023 14:37-0400 Respiratory rate 16 /min Dr. Chriss Cruz Work Phone: [facility] 02-14-2023 14:37-0400 Systolic blood pressure 159 mm[Hg] Dr. Chriss Cruz Work Phone: [facility] 02-01-2023 10:26-0400 Body height 172.7 cm Chriss Cruz MD Work Phone: [facility] 02-01-2023 10:26-0400 Body weight 96.16 kg Chriss Cruz MD Work Phone: [facility] 02-01-2023 10:26-0400 Diastolic blood pressure 82 mm[Hg] Chriss Cruz MD Work Phone: [facility] 02-01-2023 10:26-0400 Heart rate 68 /min Chriss Cruz MD Work Phone: [facility] 02-01-2023 10:26-0400 SaO2% (BldA) [Mass fraction] 97 % Chriss Cruz MD Work Phone: [facility] 02-01-2023 10:26-0400 Systolic blood pressure 164 mm[Hg] Chriss Cruz MD Work Phone: [facility] 01-31-2023 10:59-0400 Body mass index (BMI) [Ratio] 32.5 kg/m2 Dr. Chriss Cruz Work Phone: [facility] 01-31-2023 10:59-0400 Body temperature 97.9 [degF] Dr. Chriss Cruz Work Phone: 1(933)494-655471 [place] [address] 01-31-2023 10:59-0400 Body weight 97.[address] Chriss Cruz Work Phone: 2(523)107-686805 [place] [address] 01-31-2023 10:59-0400 Diastolic blood pressure 75 mm[Hg] Dr. Chriss Cruz Work Phone: 9(445)511-936405 [place] [address] 01-31-2023 10:59-0400 Heart rate 69 /min Dr. Chriss Cruz Work Phone: 4(388)482-229405 [place] [address] 01-31-2023 10:59-0400 Respiratory rate 16 /min Dr. Chriss Cruz Work Phone: 9(718)205-970305 [place] [address] 01-31-2023 10:59-0400 SaO2% (BldA) [Mass fraction] 99 % Dr. Chriss Cruz Work Phone: 0(644)757-825705 [place] [address] 01-31-2023 10:59-0400 Systolic blood pressure 174 mm[Hg] Dr. Chriss Cruz Work Phone: 0(891)860-876105 [place] [address] 01-30-2023 09:07-0400 Body mass index (BMI) [Ratio] 32.5 kg/m2 Dr. Chriss Cruz Work Phone: 4(435)181-667105 [place] [address] 01-30-2023 09:07-0400 Body temperature 986 [degF] Dr. Chriss Cruz Work Phone: 5(636)653-567505 [place] [address] 01-30-2023 09:07-0400 Body weight 97.[address] Chriss Cruz Work Phone: 2(598)673-429671 [place] [address] 01-30-2023 09:07-0400 Diastolic blood pressure 98 mm[Hg] Dr. Chriss Cruz Work Phone: 6(960)862-260005 [place] [address] 01-30-2023 09:07-0400 Heart rate 71 /min Dr. Chriss Cruz Work Phone: 6(381)353-063271 [place] [address] 01-30-2023 09:07-0400 Respiratory rate 16 /min Dr. Chriss Cruz Work Phone: 6(266)839-396871 [place] [address] 01-30-2023 09:07-0400 SaO2% (BldA) [Mass fraction] 98 % Dr. Chriss Cruz Work Phone: 2(873)842-440505 [place] [address] 01-30-2023 09:07-0400 Systolic blood pressure 158 mm[Hg] Dr. Chriss Cruz Work Phone: 6(880)965-250605 [place] [address] 01-17-2023 14:23-0400 Body mass index (BMI) [Ratio] 32.3 kg/m2 Dr. Chriss Cruz Work Phone: 4(329)171-864005 [place] [address] 01-14-2023 04:55-0400 Heart rate 68 /min Dr. Chriss Cruz Work Phone: 4(272)105-413005 [place] [address] 01-14-2023 04:55-0400 Respiratory rate 15 /min Dr. Chriss Cruz Work Phone: 9(057)079-759605 [place] [address] 01-14-2023 04:55-0400 SaO2% (BldA) [Mass fraction] 99 % Dr. Chriss Cruz Work Phone: 4(840)573-556305 [place] [address] 01-14-2023 04:27-0400 Body mass index (BMI) [Ratio] 32.6 kg/m2 Dr. Chriss Cruz Work Phone: 1(193)600-874305 [place] [address] 01-14-2023 04:27-0400 Body temperature 97.9 [degF] Dr. Chriss Cruz Work Phone: 4(402)139-258505 [place] [address] 01-14-2023 04:27-0400 Body weight 97.[address] Chriss Cruz Work Phone: 7(139)516-941005 [place] [address] 01-14-2023 04:27-0400 Diastolic blood pressure 98 mm[Hg] Dr. Chriss Cruz Work Phone: 7(824)469-570805 [place] [address] 01-14-2023 04:27-0400 Systolic blood pressure 217 mm[Hg] Dr. Chriss Cruz Work Phone: 1(752)591-856505 [place] [address] 01-03-2023 14:37-0400 Body mass index (BMI) [Ratio] 32.8 kg/m2 Dr. Chriss Cruz Work Phone: 8(005)833-447905 [place] [address] 01-03-2023 14:37-0400 Body temperature 98.4 [degF] Dr. Chriss Cruz Work Phone: [facility] 01-03-2023 14:37-0400 Body weight 98.[address] Chriss Cruz Work Phone: [facility] 01-03-2023 14:37-0400 Diastolic blood pressure 90 mm[Hg] Dr. Chriss Cruz Work Phone: [facility] 01-03-2023 14:37-0400 Heart rate 71 /min Dr. Chriss Cruz Work Phone: [facility] 01-03-2023 14:37-0400 Respiratory rate 16 /min Dr. Chriss Cruz Work Phone: [facility] 01-03-2023 14:37-0400 SaO2% (BldA) [Mass fraction] 99 % Dr. Chriss Cruz Work Phone: [facility] 01-03-2023 14:37-0400 Systolic blood pressure 191 mm[Hg] Dr. Chriss Cruz Work Phone: [facility] 12-29-2022 09:36-0400 Body height 172.7 cm Chriss Cruz MD Work Phone: [facility] 12-29-2022 09:36-0400 Body weight 97.52 kg Chriss Cruz MD Work Phone: [facility] 12-29-2022 09:36-0400 Diastolic blood pressure 90 mm[Hg] Chriss Cruz MD Work Phone: [facility] 12-29-2022 09:36-0400 Heart rate 76 /min Chriss Cruz MD Work Phone: [facility] 12-29-2022 09:36-0400 SaO2% (BldA) [Mass fraction] 99 % Chriss Cruz MD Work Phone: [facility] 12-29-2022 09:36-0400 Systolic blood pressure 170 mm[Hg] Chriss Cruz MD Work Phone: [facility] 12-06-2022 14:51-0400 Body mass index (BMI) [Ratio] 32.7 kg/m2 Dr. Chriss Cruz Work Phone: [facility] 12-06-2022 14:51-0400 Body temperature 98.6 [degF] Dr. Chriss Cruz Work Phone: [facility] 12-06-2022 14:51-0400 Body weight 97.[address] Chriss Cruz Work Phone: [facility] 12-06-2022 14:51-0400 Diastolic blood pressure 69 mm[Hg] Dr. Chriss Cruz Work Phone: [facility] 12-06-2022 14:51-0400 Heart rate 72 /min Dr. Chriss Cruz Work Phone: [facility] 12-06-2022 14:51-0400 Respiratory rate 17 /min Dr. Chriss Cruz Work Phone: [facility] 12-06-2022 14:51-0400 SaO2% (BldA) [Mass fraction] 99 % Dr. Chriss Cruz Work Phone: [facility] 12-06-2022 14:51-0400 Systolic blood pressure 161 mm[Hg] Dr. Chriss Cruz Work Phone: [facility] 12-01-2022 10:15-0400 Body weight 97.61 kg Chriss Cruz MD Work Phone: [facility] 12-01-2022 10:15-0400 Diastolic blood pressure 74 mm[Hg] Chriss Cruz MD Work Phone: [facility] 12-01-2022 10:15-0400 Heart rate 75 /min Chriss Cruz MD Work Phone: [facility] 12-01-2022 10:15-0400 Respiratory rate 16 /min Chriss Cruz MD Work Phone: [facility] 12-01-2022 10:15-0400 SaO2% (BldA) [Mass fraction] 99 % Chriss Cruz MD Work Phone: [facility] 12-01-2022 10:15-0400 Systolic blood pressure 136 mm[Hg] Chriss Cruz MD Work Phone: [facility] 11-26-2022 15:40-0400 Body temperature 98.1 [degF] Dr. Chriss Cruz Work Phone: [facility] 11-26-2022 15:40-0400 Diastolic blood pressure 79 mm[Hg] Dr. Chriss Cruz Work Phone: 4(831)812-712271 [place] [address] 11-26-2022 15:40-0400 Heart rate 79 /min Dr. Chriss Cruz Work Phone: 0(962)035-436971 [place] [address] 11-26-2022 15:40-0400 Respiratory rate 16 /min Dr. Chriss Cruz Work Phone: [facility] 11-26-2022 15:40-0400 SaO2% (BldA) [Mass fraction] 99 % Dr. Chriss Cruz Work Phone: 7(463)508-564971 [place] [address] 11-26-2022 15:40-0400 Systolic blood pressure 148 mm[Hg] Dr. Chriss Cruz Work Phone: 9(182)751-020205 [place] [address] 11-26-2022 06:00-0400 Body mass index (BMI) [Ratio] 32.2 kg/m2 Dr. Chriss Cruz Work Phone: 5(093)551-856871 [place] [address] 11-26-2022 06:00-0400 Body weight 96.[address] Chriss Cruz Work Phone: 7(074)250-122971 [place] [address] 11-24-2022 15:05-0400 Body height [address] Chriss Cruz Work Phone: 1(523)880-810871 [place] [address] 11-23-2022 12:48-0400 Diastolic blood pressure 68 mm[Hg] Dr. Chriss Cruz Work Phone: 1(879)878-824871 [place] [address] 11-23-2022 12:48-0400 Heart rate 71 /min Dr. Chriss Cruz Work Phone: 9(385)776-764171 [place] [address] 11-23-2022 12:48-0400 Systolic blood pressure 119 mm[Hg] Dr. Chriss Cruz Work Phone: 9(692)392-149005 [place] [address] 11-23-2022 12:30-0400 Body temperature 97.6 [degF] Dr. Chriss Cruz Work Phone: 0(417)434-633605 [place] [address] 11-23-2022 12:30-0400 Respiratory rate 14 /min Dr. Chriss Cruz Work Phone: 3(865)809-245105 [place] [address] 11-23-2022 12:30-0400 SaO2% (BldA) [Mass fraction] 100 % Dr. Chriss Cruz Work Phone: 0(152)743-149605 [place] [address] 11-23-2022 11:07-0400 Body height [address] Chriss Cruz Work Phone: 3(810)277-516405 [place] [address] 11-23-2022 11:07-0400 Body mass index (BMI) [Ratio] 32.8 kg/m2 Dr. Chriss Cruz Work Phone: 8(486)661-824905 [place] [address] 11-23-2022 11:07-0400 Body weight 98.[address] Chriss Cruz Work Phone: 1(086)145-477305 [place] [address] 11-22-2022 13:52-0400 Body mass index (BMI) [Ratio] 32.3 kg/m2 Dr. Chriss Cruz Work Phone: 9(512)772-737105 [place] [address] 11-22-2022 13:52-0400 Body temperature 97.8 [degF] Dr. Chriss Cruz Work Phone: 6(426)995-762505 [place] [address] 11-22-2022 13:52-0400 Body weight 96.[address] Chriss Curz Work Phone: 1(495)721-326805 [place] [address] 11-22-2022 13:52-0400 Diastolic blood pressure 80 mm[Hg] Dr. Chriss Cruz Work Phone: 2(958)155-375905 [place] [address] 11-22-2022 13:52-0400 Heart rate 69 /min Dr. Chriss Cruz Work Phone: 1(594)737-899005 [place] [address] 11-22-2022 13:52-0400 Respiratory rate 18 /min Dr. Chriss Cruz Work Phone: 9(451)674-123405 [place] [address] 11-22-2022 13:52-0400 SaO2% (BldA) [Mass fraction] 100 % Dr. Chriss Cruz Work Phone: 6(464)819-111205 [place] [address] 11-22-2022 13:52-0400 Systolic blood pressure 159 mm[Hg] Dr. Chriss Cruz Work Phone: 4(352)856-767905 [place] [address] 11-02-2022 14:36-0500 Body height 172.[address] Chriss Cruz Work Phone: 9(550)756-971605 [place] [address] 11-02-2022 14:34-0500 Body mass index (BMI) [Ratio] 32.2 kg/m2 Dr. Chriss Cruz Work Phone: 3(662)069-586705 [place] [address] 11-02-2022 14:34-0500 Body temperature 97.8 [degF] Dr. Chriss Cruz Work Phone: 6(110)107-251105 [place] [address] 11-02-2022 14:34-0500 Body weight 96.[address] Chriss Cruz Work Phone: 3(407)559-502505 [place] [address] 11-02-2022 14:34-0500 Diastolic blood pressure 83 mm[Hg] Dr. Chriss Cruz Work Phone: 1(269)580-923205 [place] [address] 11-02-2022 14:34-0500 Heart rate 65 /min Dr. Chriss Cruz Work Phone: 0(424)738-601205 [place] [address] 11-02-2022 14:34-0500 Respiratory rate 17 /min Dr. Chriss Cruz Work Phone: 1(633)764-839705 [place] [address] 11-02-2022 14:34-0500 SaO2% (BldA) [Mass fraction] 100 % Dr. Chriss Cruz Work Phone: 5(254)792-301505 [place] [address] 11-02-2022 14:34-0500 Systolic blood pressure 146 mm[Hg] Dr. Chriss Cruz Work Phone: 3(565)770-839505 [place] [address] 11-02-2022 08:25-0500 Body mass index (BMI) [Ratio] 32.3 kg/m2 Dr. Chriss Cruz Work Phone: 9(054)095-922205 [place] [address] 11-02-2022 08:25-0500 Body temperature 98.6 [degF] Dr. Chriss Cruz Work Phone: [facility] 11-02-2022 08:25-0500 Body weight 96.[address] Chriss Cruz Work Phone: [facility] 11-02-2022 08:25-0500 Diastolic blood pressure 78 mm[Hg] Dr. Chriss Cruz Work Phone: [facility] 11-02-2022 08:25-0500 Heart rate 69 /min Dr. Chriss Cruz Work Phone: [facility] 11-02-2022 08:25-0500 Respiratory rate 16 /min Dr. Chriss Cruz Work Phone: [facility] 11-02-2022 08:25-0500 SaO2% (BldA) [Mass fraction] 99 % Dr. Chriss Cruz Work Phone: [facility] 11-02-2022 08:25-0500 Systolic blood pressure 140 mm[Hg] Dr. Chriss Cruz Work Phone: [facility] 10-06-2022 13:17-0500 Diastolic blood pressure 79 mm[Hg] Chriss Cruz MD Work Phone: [facility] 10-06-2022 13:17-0500 Systolic blood pressure 166 mm[Hg] Chriss Cruz MD Work Phone: [facility] 10-06-2022 13:07-0500 Body weight 103.42 kg Chriss Cruz MD Work Phone: [facility] 10-06-2022 13:07-0500 Heart rate 81 /min Chriss Cruz MD Work Phone: [facility] 10-06-2022 13:07-0500 SaO2% (BldA) [Mass fraction] 98 % Chriss Cruz MD Work Phone: [facility] 09-20-2022 15:23-0500 Diastolic blood pressure 100 mm[Hg] Candy Penn APRN.CNP Work Phone: [facility] 09-20-2022 15:23-0500 Systolic blood pressure 160 mm[Hg] [facility] BUSINESS PROJECT MANAGER.[employer] Work Phone: [facility] 09-20-2022 14:58-0500 Body height 172.8 cm [facility] BUSINESS PROJECT MANAGER.[employer] Work Phone: [facility] 09-20-2022 14:58-0500 Body weight 98.61 kg [facility] BUSINESS PROJECT MANAGER.[employer] WORK[employer] Work Phone: [facility] 09-20-2022 14:58-0500 Heart rate 90 /min [facility] BUSINESS PROJECT MANAGER.[employer] WORK[employer] Work Phone: [facility] 09-20-2022 14:58-0500 Respiratory rate 16 /min [facility] BUSINESS PROJECT MANAGER.[employer] Work Phone: [facility] 09-20-2022 14:58-0500 SaO2% (BldA) [Mass fraction] 100 % [facility] BUSINESS PROJECT MANAGER.[employer] Work Phone: [facility] 08-22-2022 10:20-0500 Body temperature 97 [degF] Ruma Ortiz APRN.[employer] WORK[employer] Work Phone: [facility] 08-22-2022 10:20-0500 Body weight 102.69 kg Ruma Ortiz APRN.[employer] Work Phone: [facility] 08-22-2022 10:20-0500 Diastolic blood pressure 84 mm[Hg] Ruma Ortiz APRN.[employer] WORK[employer] Work Phone: [facility] 08-22-2022 10:20-0500 Heart rate 76 /min Ruma Ortiz APRN.[employer] Work Phone: [facility] 08-22-2022 10:20-0500 Respiratory rate 20 /min Ruma Ortiz APRN.[employer] Work Phone: [facility] 08-22-2022 10:20-0500 SaO2% (BldA) [Mass fraction] 96 % Ruma Ortiz BUSINESS PROJECT MANAGER.[employer] Work Phone: [facility] 08-22-2022 10:20-0500 Systolic blood pressure 132 mm[Hg] Ruma Ortiz BUSINESS PROJECT MANAGER.[employer] Work Phone: [facility] 06-17-2022 14:53-0400 Diastolic blood pressure 76 mm[Hg] [facility] BUSINESS PROJECT MANAGER.[employer] WORK[employer] Work Phone: [facility] 06-17-2022 14:53-0400 Systolic blood pressure 140 mm[Hg] [facility] BUSINESS PROJECT MANAGER.[employer] Work Phone: [facility] 06-17-2022 14:32-0400 Body height 172.7 cm [facility] BUSINESS PROJECT MANAGER.[employer] WORK[employer] Work Phone: [facility] 06-17-2022 14:32-0400 Body weight 99.79 kg [facility] BUSINESS PROJECT MANAGER.[employer] WORK[employer] Work Phone: [facility] 06-17-2022 14:32-0400 Heart rate 78 /min [facility] BUSINESS PROJECT MANAGER.[employer] WORK[employer] Work Phone: [facility] 06-17-2022 14:32-0400 SaO2% (BldA) [Mass fraction] 100 % [facility] BUSINESS PROJECT MANAGER.[employer] WORK[employer] Work Phone: [facility] 06-02-2022 10:30-0400 Diastolic blood pressure 81 mm[Hg] Mi Nurse Work Phone: [facility] 06-02-2022 10:30-0400 Heart rate 65 /min Mi Nurse Work Phone: [facility] 06-02-2022 10:30-0400 Systolic blood pressure 151 mm[Hg] Mi Nurse Work Phone: [facility] 05-10-2022 13:30-0400 Body height 172.[address] Chriss Cruz Work Phone: [facility] Work Phone: 05-10-2022 13:24-0400 Body mass index (BMI) [Ratio] 33.2 kg/m2 Dr. Chriss Cruz Work Phone: [facility] Work Phone: 05-10-2022 13:24-0400 Body temperature 98.2 [degF] Dr. Chriss Cruz Work Phone: [facility] Work Phone: 05-10-2022 13:24-0400 Body weight 99.[address] Chriss Cruz Work Phone: [facility] Work Phone: 05-10-2022 13:24-0400 Diastolic blood pressure 95 mm[Hg] Dr. Chriss Cruz Work Phone: [facility] Work Phone: 05-10-2022 13:24-0400 Heart rate 78 /min Dr. Chriss Cruz Work Phone: [facility] Work Phone: 05-10-2022 13:24-0400 Respiratory rate 16 /min Dr. Chriss Cruz Work Phone: [facility] Work Phone: 05-10-2022 13:24-0400 SaO2% (BldA) [Mass fraction] 99 % Dr. Chriss Cruz Work Phone: [facility] Work Phone: 05-10-2022 13:24-0400 Systolic blood pressure 172 mm[Hg] Dr. Chriss Cruz Work Phone: [facility] Work Phone: 05-04-2022 09:36-0400 Diastolic blood pressure 88 mm[Hg] Mi Nurse Work Phone: [facility] 05-04-2022 09:36-0400 Heart rate 73 /min Mi Nurse Work Phone: [facility] 05-04-2022 09:36-0400 Systolic blood pressure 151 mm[Hg] Mi Nurse Work Phone: [facility] 03-30-2022 10:52-0400 Body height 172.7 cm Chriss Cruz MD Work Phone: [facility] 03-30-2022 10:52-0400 Body weight 96.98 kg Chriss Cruz MD Work Phone: [facility] 03-30-2022 10:52-0400 Diastolic blood pressure 82 mm[Hg] Chriss Cruz MD Work Phone: [facility] 03-30-2022 10:52-0400 Heart rate 73 /min Chriss Cruz MD Work Phone: [facility] 03-30-2022 10:52-0400 SaO2% (BldA) [Mass fraction] 98 % Chriss Cruz MD Work Phone: [facility] 03-30-2022 10:52-0400 Systolic blood pressure 154 mm[Hg] Chriss Cruz MD Work Phone: [facility] 02-13-2022 16:02-0400 Heart rate 60 /min Dr. Chriss Cruz Work Phone: [facility] Work Phone: 02-13-2022 16:02-0400 Respiratory rate 17 /min Dr. Chriss Cruz Work Phone: [facility] Work Phone: 02-13-2022 16:02-0400 SaO2% (BldA) [Mass fraction] 99 % Dr. Chriss Cruz Work Phone: [facility] Work Phone: 02-13-2022 13:46-0400 Body height 172.[address] Chriss Cruz Work Phone: [facility] Work Phone: 02-13-2022 13:46-0400 Body mass index (BMI) [Ratio] 32.8 kg/m2 Dr. Chriss Cruz Work Phone: [facility] Work Phone: 02-13-2022 13:46-0400 Body temperature 98 [degF] Dr. Chriss Cruz Work Phone: [facility] Work Phone: 02-13-2022 13:46-0400 Body weight 97.[address] Chriss Cruz Work Phone: [facility] Work Phone: 02-13-2022 13:46-0400 Diastolic blood pressure 63 mm[Hg] Dr. Chriss Cruz Work Phone: [facility] Work Phone: 02-13-2022 13:46-0400 Systolic blood pressure 108 mm[Hg] Dr. Chriss Cruz Work Phone: [facility] Work Phone: 02-08-2022 14:41-0400 Body mass index (BMI) [Ratio] 32.4 kg/m2 Dr. Chriss Cruz Work Phone: [facility] Work Phone: 02-08-2022 14:41-0400 Body temperature 98.4 [degF] Dr. Chriss Cruz Work Phone: [facility] Work Phone: 02-08-2022 14:41-0400 Body weight 96.[address] Chriss Cruz Work Phone: [facility] Work Phone: 02-08-2022 14:41-0400 Diastolic blood pressure 85 mm[Hg] Dr. Chriss Cruz Work Phone: [facility] Work Phone: 02-08-2022 14:41-0400 Heart rate 74 /min Dr. Chriss Cruz Work Phone: [facility] Work Phone: 02-08-2022 14:41-0400 Respiratory rate 16 /min Dr. Chriss Cruz Work Phone: [facility] Work Phone: 02-08-2022 14:41-0400 SaO2% (BldA) [Mass fraction] 99 % Dr. Chriss Cruz Work Phone: [facility] Work Phone: 02-08-2022 14:41-0400 Systolic blood pressure 172 mm[Hg] Dr. Chriss Cruz Work Phone: [facility] Work Phone: 02-04-2022 11:17-0400 Body weight 97.98 kg [facility] BUSINESS PROJECT MANAGER.[employer] Work Phone: [facility] 02-04-2022 11:17-0400 Diastolic blood pressure 80 mm[Hg] [facility] BUSINESS PROJECT MANAGER.[employer] WORK[employer] Work Phone: [facility] 02-04-2022 11:17-0400 Heart rate 66 /min [facility] BUSINESS PROJECT MANAGER.[employer] WORK[employer] Work Phone: [facility] 02-04-2022 11:17-0400 SaO2% (BldA) [Mass fraction] 100 % [facility] BUSINESS PROJECT MANAGER.[employer] WORK[employer] Work Phone: [facility] 02-04-2022 11:17-0400 Systolic blood pressure 137 mm[Hg] [facility] BUSINESS PROJECT MANAGER.[facility] Work Phone: [facility] 01-26-2022 06:48-0400 Diastolic blood pressure 70 mm[Hg] [facility] Work Phone: 01-26-2022 06:48-0400 Heart rate 78 /min [facility] Work Phone: 01-26-2022 06:48-0400 Respiratory rate 16 /min [facility] Work Phone: 01-26-2022 06:48-0400 SaO2% (BldA) [Mass fraction] 99 % [facility] Work Phone: 01-26-2022 06:48-0400 Systolic blood pressure 154 mm[Hg] [facility] Work Phone: 01-26-2022 03:11-0400 Body height 172.72 cm [facility] Work Phone: 01-26-2022 03:11-0400 Body mass index (BMI) [Ratio] 31.9 kg/m2 [facility] Work Phone: 01-26-2022 03:11-0400 Body temperature 98.2 [degF] [facility] Work Phone: 01-26-2022 03:11-0400 Body weight 95.25 kg [facility] Work Phone: 12-14-2021 10:03-0400 Diastolic blood pressure 73 mm[Hg] De Nurse Work Phone: [facility] 12-14-2021 10:03-0400 Heart rate 73 /min De Nurse Work Phone: [facility] 12-14-2021 10:03-0400 Systolic blood pressure 154 mm[Hg] De Nurse Work Phone: [facility] 11-29-2021 17:14-0400 Diastolic blood pressure 84 mm[Hg] [facility] Work Phone: 11-29-2021 17:14-0400 Heart rate 69 /min [facility] Work Phone: 11-29-2021 17:14-0400 Respiratory rate 18 /min [facility] Work Phone: 11-29-2021 17:14-0400 SaO2% (BldA) [Mass fraction] 100 % [facility] Work Phone: 11-29-2021 17:14-0400 Systolic blood pressure 149 mm[Hg] [facility] Work Phone: 11-29-2021 14:13-0400 Body temperature 96.8 [degF] [facility] Work Phone: 11-29-2021 14:10-0400 Body mass index (BMI) [Ratio] 34 kg/m2 [facility] Work Phone: 11-29-2021 14:10-0400 Body weight 101.6 kg [facility] Work Phone: 11-27-2021 14:11-0400 Diastolic blood pressure 69 mm[Hg] [facility] Work Phone: 11-27-2021 14:11-0400 Heart rate 62 /min [facility] Work Phone: 11-27-2021 14:11-0400 Respiratory rate 15 /min [facility] Work Phone: 11-27-2021 14:11-0400 SaO2% (BldA) [Mass fraction] 98 % [facility] Work Phone: 11-27-2021 14:11-0400 Systolic blood pressure 124 mm[Hg] [facility] Work Phone: 11-27-2021 12:10-0400 Body mass index (BMI) [Ratio] 34 kg/m2 [facility] Work Phone: 11-27-2021 12:10-0400 Body temperature 97.1 [degF] [facility] Work Phone: 11-27-2021 12:10-0400 Body weight 101.6 kg [facility] Work Phone: 11-27-2021 10:41-0400 Body weight 101.15 kg Chriss Cruz MD Work Phone: [facility] 11-27-2021 10:41-0400 Diastolic blood pressure 86 mm[Hg] Chriss Cruz MD Work Phone: [facility] 11-27-2021 10:41-0400 Heart rate 68 /min Chriss Cruz MD Work Phone: [facility] 11-27-2021 10:41-0400 SaO2% (BldA) [Mass fraction] 100 % Chriss Cruz MD Work Phone: [facility] 11-27-2021 10:41-0400 Systolic blood pressure 164 mm[Hg] Chriss Cruz MD Work Phone: [facility] 11-24-2021 08:55-0400 Body weight 101.15 kg Chriss Cruz MD Work Phone: [facility] 11-24-2021 08:55-0400 Diastolic blood pressure 100 mm[Hg] Chriss Cruz MD Work Phone: [facility] 11-24-2021 08:55-0400 Heart rate 80 /min Chriss Cruz MD Work Phone: [facility] 11-24-2021 08:55-0400 Respiratory rate 18 /min Chriss Cruz MD Work Phone: [facility] 11-24-2021 08:55-0400 Systolic blood pressure 174 mm[Hg] Chriss Cruz MD Work Phone: [facility] 11-21-2021 12:43-0400 Diastolic blood pressure 83 mm[Hg] [facility] Work Phone: 11-21-2021 12:43-0400 Heart rate 65 /min [facility] Work Phone: 11-21-2021 12:43-0400 Systolic blood pressure 147 mm[Hg] [facility] Work Phone: 11-21-2021 12:08-0400 Body mass index (BMI) [Ratio] 34.3 kg/m2 [facility] Work Phone: 11-21-2021 12:08-0400 Body temperature 96.7 [degF] [facility] Work Phone: 11-21-2021 12:08-0400 Body weight 102.5 kg [facility] Work Phone: 11-21-2021 12:08-0400 Respiratory rate 16 /min [facility] Work Phone: 11-21-2021 12:08-0400 SaO2% (BldA) [Mass fraction] 100 % [facility] Work Phone: 11-19-2021 09:23-0400 Diastolic blood pressure 73 mm[Hg] Mi Nurse Work Phone: [facility] 11-19-2021 09:23-0400 Heart rate 76 /min Mi Nurse Work Phone: [facility] 11-19-2021 09:23-0400 Systolic blood pressure 130 mm[Hg] Mi Nurse Work Phone: [facility] 05-14-2020 11:04-0400 Body temperature 97.8 [degF] [facility] 05-14-2020 11:04-0400 Body weight 96.43 kg [facility] 05-14-2020 11:04-0400 Diastolic blood pressure 88 mm[Hg] [facility] 05-14-2020 11:04-0400 Heart rate 83 /min [facility] 05-14-2020 11:04-0400 Respiratory rate 14 /min [facility] 05-14-2020 11:04-0400 SaO2% (BldA) [Mass fraction] 100 % [facility] 05-14-2020 11:04-0400 Systolic blood pressure 136 mm[Hg] [facility] 10-18-2017 11:20-0500 Body mass index (BMI) [Ratio] 31.8 kg/m2 Dr. Chriss Cruz Work Phone: [facility] 10-18-2017 10:20-0500 Body mass index (BMI) [Ratio] 31.8 kg/m2 [facility] Work Phone: Encounters Encounter Date Encounter Type Care Provider Facility Start: 06-30-2025 ambulatory Chalon Kita Facility:[facility] Start: 06-30-2025 End: 06-30-2025 ambulatory Chalon Kita Facility:[facility] Start: 06-28-2025 ambulatory CHALON KITA Facility:[facility] Start: 06-25-2025 End: 06-25-2025 ambulatory Chalon Kita Facility:[facility] Start: 06-18-2025 End: 06-18-2025 Patient encounter procedure Grisel VALENTINE -[facility] Work Phone: Start: 06-18-2025 End: 06-18-2025 ambulatory Chalmarie Kita Facility:[facility] Start: 06-04-2025 ambulatory Chalmarie East Facility:[facility] Start: 06-04-2025 Non-patient / Non-visit Dr. Kirk Fernandez MD -[facility] Start: 06-04-2025 End: 06-04-2025 Admission to same day surgery center Dr. Kirk Fernandez MD -Registered Pharmacy Technician/Special Procedures Work Phone: Start: 06-04-2025 End: 06-04-2025 ambulatory Kimberlyn East MD Work Phone: -Registered Pharmacy Technician/Special Procedures Start: 05-28-2025 ambulatory TYRESEDAYSI LANGE Facility:[facility] Start: 05-07-2025 End: 05-07-2025 Patient encounter procedure Aquiles Warren DO -[facility] Work Phone: Start: 05-07-2025 End: 05-07-2025 ambulatory Kimbelryn East MD Work Phone: -[facility] Start: 05-02-2025 Non-patient / Non-visit Dr. Kirk Fernandez MD -[facility] Start: 05-02-2025 End: 05-02-2025 ambulatory Kimberlyn East MD Work Phone: -Cardiovascular Services Start: 05-02-2025 End: 05-02-[address] Robb Paulson MD -Cardiovascular Services Work Phone: Start: 05-02-2025 End: 05-02-2025 ambulatory Kimberlyn East Facility:[facility] Start: 04-25-2025 ambulatory Jimmie Ibarra Facility:[facility] Start: 04-25-[address] Jimmie Ibarra MD -[facility] Start: 04-23-2025 End: 04-23-2025 Office outpatient visit 25 minutes Lillian Hall DO Work Phone: [facility] Comment on above: Liver lesion (Primary Dx); Portal hypertension Start: 04-23-2025 ambulatory KIMBERLYN EAST Facility:[facility] Start: 04-23-2025 ambulatory KIMBERLYN KITA Facility:[facility] Start: 04-23-2025 End: 04-23-2025 Subsequent hospital visit by physician Lillian Hall DO Work Phone: [facility] Comment on above: Arrived Start: 04-21-2025 End: 04-21-[address] Robb Paulson MD -[facility] Work Phone: Start: 04-21-2025 End: 04-21-2025 ambulatory Kimberlyn East MD Work Phone: -[facility] Start: 03-12-[address] Jimmie Ibarra MD -[facility] Start: 03-03-2025 Non-patient / Non-visit Dr. Kirk Fernandez MD -[facility] Start: 03-03-2025 End: 03-03-[address] Chriss Cruz MD Work Phone: -Cardiovascular Services Start: 03-03-2025 End: 03-03-2025 Patient encounter procedure Cynthia RIOS -Cardiovascular Services Work Phone: Start: 03-03-2025 End: 03-03-2025 ambulatory Kimberlyn East Facility:[facility] Start: 02-21-2025 End: 02-21-2025 Patient encounter procedure Cynthia RIOS -[facility] Work Phone: Start: 02-21-2025 End: 02-21-2025 ambulatory Kimberlyn East MD Work Phone: [facility] Work Phone: Start: 01-27-2025 End: 01-27-2025 ambulatory AURAMARIE KITA Facility:[facility] Start: 01-27-2025 End: 01-27-2025 Subsequent hospital visit by physician Evelin Love Work Phone: [facility] Comment on above: Hepatic fibrosis Start: 12-25-2024 ambulatory TYRESE S ANISA Facility:[facility] Start: 12-25-2024 End: 12-25-2024 Office outpatient new 60 minutes Lillian Hall DO Work Phone: [facility]ology [facility]atology [facility] Comment on above: Hepatosplenomegaly (Primary Dx); Liver lesion; Secondary esophageal varices with bleeding Start: 12-25-2024 ambulatory TYRESE LANGE Facility:[facility] Start: 12-20-2024 End: 12-20-2024 ambulatory Chalon Kita Facility:[facility] Start: 12-20-2024 End: 12-20-2024 Patient encounter procedure Cynthia RIOS -[facility] Work Phone: Start: 12-18-2024 End: 12-18-2024 Patient encounter procedure Grisel VALENTINE -[facility] Work Phone: Start: 12-18-2024 End: 12-18-2024 ambulatory Chalon Kita Facility:[facility] Start: 12-13-2024 ambulatory CHALON KITA Facility:[facility] Start: 12-13-2024 Encounter for other preprocedural examination TYRESE LANGE Facility:[facility] Start: 12-13-2024 End: 12-13-2024 Patient encounter status Tyrese PEARL Work Phone: [facility] Work Phone: Start: 12-13-2024 End: 12-13-2024 Subsequent hospital visit by physician Tyrese PEARL Work Phone: [facility] Comment on above: Arrived Start: 12-11-2024 Anes nerve muscle tdn fascia&bursa forearm wrist CHALON KITA Facility:[facility] Start: 12-11-2024 Encounter for preprocedural cardiovascular examination TYRESE Sanya ANISA [facility] Start: 12-11-2024 ambulatory CHALON KITA Facility:[facility] Start: 12-11-2024 End: 12-11-2024 Patient encounter status Tyrese PEARL Work Phone: [facility] Work Phone: Start: 12-11-2024 End: 12-11-2024 Subsequent hospital visit by physician Tyrese PEARL Work Phone: [facility] Comment on above: Arrived Start: 12-09-[address] Jimmie Ibarra MD -[facility] Start: 11-29-2024 End: 11-29-2024 [facility] Comment on above: Referral - Kidney Txp (NS on 11/20) Start: 11-20-2024 ambulatory Chalon Kiat Facility:[facility] Start: 11-20-2024 End: 11-20-2024 Telephone encounter Lurdes Haynes RN [facility] Start: 11-08-2024 End: 11-08-2024 Clinical Support Encounter Tyrese PEARL Work Phone: [facility] Comment on above: Pre-transplant evaluation for kidney tra nsplant (Primary Dx) Start: 11-08-2024 ambulatory CHALON KITA Facility:[facility] Start: 11-08-2024 End: 11-08-2024 Office outpatient new 60 minutes Tyrese PEARL Work Phone: [facility] Comment on above: ESRD (end stage renal disease) on dialys is (Primary Dx); Pre-transplant evaluation for kidney transplant; Diabetic nephropathy associated with type 2 diabetes mellitus Start: 11-08-2024 ambulatory SELF SELF Facility:[facility] Start: 11-08-2024 End: 11-08-2024 Patient encounter status Tyrese PEARL Work Phone: [facility] Start: 11-08-2024 End: 11-08-2024 Subsequent hospital visit by physician Tyrese PEARL Work Phone: [facility] Comment on above: Arrived Start: 10-30-2024 ambulatory Chalon Kita Facility:[facility] Start: 10-30-2024 Non-patient / Non-visit Dr. Kirk Fernandez MD -[facility] Start: 10-30-2024 End: 10-30-2024 Admission to same day surgery center Dr. Kirk Fernandez MD -Registered Pharmacy Technician/Special Procedures Work Phone: Start: 10-30-2024 End: 10-30-2024 ambulatory Chalon Kita Facility:[facility] Start: 09-30-2024 End: 09-30-2024 ambulatory Chalon Kita Facility:[facility] Start: 09-18-2024 End: 09-18-2024 ambulatory Chalon Ktia Facility:[facility] Start: 09-17-2024 End: 09-17-2024 Chart abstracting Dione [facility] RN [facility] Comment on above: Pre-transplant evaluation for kidney tra nsplant (Primary Dx) Start: 09-17-2024 End: 09-17-2024 Patient encounter status Winnie Cohen MD Work Phone: [facility] Start: 09-13-2024 ambulatory Chalon Kita Facility:[facility] Start: 09-13-2024 End: 09-13-2024 ambulatory Chalon Kita Facility:[facility] Start: 09-12-2024 End: 09-12-2024 Emergency department patient visit Chalon Kita Facility:[facility] Start: 09-11-2024 End: 09-11-2024 Patient encounter status Kidney Txp Coordinators Work Phone: [facility] Start: 09-11-2024 End: 09-11-2024 Telephone encounter Kidney Txp Coordinators Work Phone: [facility] Comment on above: Referral - Kidney Txp Start: 08-23-2024 Encounter for other preprocedural examination Kirk Fernandez [facility] Start: 08-14-2024 End: 08-14-2024 ambulatory Chalon Kita Facility:[facility] Start: 08-07-2024 End: 08-07-2024 ambulatory Chalon Kita Facility:[facility] Start: 08-01-2024 ambulatory Chalon Kita Facility:[facility] Start: 07-26-2024 End: 07-26-2024 ambulatory Chalon Kita Facility:[facility] Start: 07-23-2024 ambulatory Chalon Kita Facility:[facility] Start: 07-23-2024 End: 07-23-2024 ambulatory Chalon Kita Facility:[facility] Start: 07-19-2024 End: 07-19-2024 ambulatory Chalon Kita Facility:[facility] Start: 07-16-2024 ambulatory Chalon Kita Facility:[facility] Start: 07-08-2024 ambulatory Chalon Kita Facility:[facility] Start: 07-08-2024 ambulatory Chalon Kita Facility:[facility] Start: 07-05-2024 Evaluation and management of inpatient Chalon Kita Facility:[facility] Start: 07-04-2024 End: 07-04-2024 ambulatory Chalon Kita Facility:[facility] Start: 07-03-2024 ambulatory Chalon Kita Facility:[facility] Start: 07-03-2024 End: 07-03-2024 ambulatory Chalon Kita Facility:[facility] Start: 07-02-2024 ambulatory Landry Barber Facility:[facility] Start: 07-02-2024 End: 07-10-2024 Evaluation and management of inpatient Chalon Kita Facility:[facility] Start: 06-06-2024 End: 06-06-2024 Chart abstracting Chriss Cruz MD Work Phone: [facility] [place] Start: 12-18-2023 End: 12-18-2023 Emergency department patient visit DO Luciana Garcia Work Phone: [facility]-Emergency Department Work Phone: Start: 12-12-2023 End: 12-12-2023 Patient encounter procedure DO Lcuiana Villaloboser Work Phone: [facility] Work Phone: Start: 12-09-2023 Non-patient / Non-visit DO Luciana Villaloboser Work Phone: [facility] Work Phone: Start: 12-08-2023 Non-patient / Non-visit DO Luciana Villaloboser Work Phone: [facility] Work Phone: Start: 12-07-2023 End: 12-09-2023 Evaluation and management of inpatient DO Luciana Villaloboser Work Phone: [facility]-Progressive Care Unit Work Phone: Start: 12-07-2023 End: 12-07-2023 ambulatory DO Luciana Garcia Work Phone: [facility] Work Phone: Start: 12-07-2023 End: 12-07-2023 Patient encounter procedure DO Luciana Garcia Work Phone: [facility]-Laboratory Work Phone: Start: 11-30-2023 Registered Recurring DO Luciana Garcia Work Phone: [facility] Start: 11-30-2023 End: 11-30-2023 Patient encounter procedure DO Luciana Garcia Work Phone: [facility] Work Phone: Start: 11-03-2023 End: 11-03-[address] Chriss Cruz Work Phone: [facility] Work Phone: Start: 11-03-2023 End: 11-03-[address] Chriss Cruz Work Phone: [facility] Work Phone: Start: 10-16-2023 End: 10-16-2023 Emergency department patient visit Dr. Chriss Cruz Work Phone: [facility]Emergency [facility] Work Phone: Start: 09-21-[address] Chriss Cruz Work Phone: [facility] Start: 08-09-2023 End: 08-09-[address] Chriss Cruz Work Phone: [facility] Work Phone: Start: 08-09-2023 End: 08-09-[address] Chriss Cruz Work Phone: [facility] Work Phone: Start: 08-08-2023 End: 08-08-[address] Chriss Cruz Work Phone: [facility] Work Phone: Start: 08-08-2023 End: 08-08-[address] Chriss Cruz Work Phone: [facility]Labor[facility] Work Phone: Start: 08-02-2023 Non-patient / Non-visit Dr. Chriss Cruz Work Phone: [facility] Start: 08-02-2023 End: 08-02-2023 Admission to same day surgery center Dr. Chriss Cruz Work Phone: [facility]-Endoscopy Work Phone: Start: 08-02-2023 End: 08-02-[address] Chriss Cruz Work Phone: [facility] Work Phone: Start: 07-25-2023 End: 07-25-[address] Chriss Cruz Work Phone: [facility] Work Phone: Start: 07-25-2023 End: 07-25-[address] Chriss Cruz Work Phone: [facility] Work Phone: Start: 07-12-2023 End: 07-12-[address] Chriss Cruz Work Phone: [facility] Work Phone: Start: 07-06-[address] Chriss Cruz Work Phone: [facility] Start: 06-23-2023 End: 06-23-2023 Patient encounter procedure Candy Penn APRN.CNP Work Phone: Endocrinology Comment [...] procedure Dr. Chriss Cruz Work Phone: [facility] Work Phone: Start: 05-29-2023 Refill Chriss Cruz MD Work Phone: [facility] Comment on above: Refill Request Start: 05-25-2023 End: 05-25-2023 Emergency department patient visit Dr. Chriss Cruz Work Phone: [facility]Emergency [facility] Work Phone: Start: 05-25-2023 End: 05-25-[address] Chriss Cruz Work Phone: [facility] Work Phone: Start: 05-11-2023 End: 05-11-[address] Chriss Cruz Work Phone: [facility] Work Phone: Start: 05-03-2023 End: 05-03-[address] Chriss Cruz Work Phone: [facility] Work Phone: Start: 04-27-2023 End: 04-27-[address] Chriss Cruz Work Phone: [facility] Work Phone: Start: 03-24-2023 End: 03-24-[address] Chriss Cruz Work Phone: [facility] Work Phone: Start: 03-24-2023 End: 03-24-[address] Chriss Cruz Work Phone: [facility] Work Phone: Start: 03-16-[address] Chriss Cruz Work Phone: [facility] Start: 03-16-2023 End: 03-16-[address] Chriss Cruz Work Phone: [facility] Work Phone: Start: 02-24-2023 End: 02-24-[address] Chriss Cruz Work Phone: [facility] Work Phone: Start: 02-09-2023 Telephone encounter Candy Penn APRN.CNP Work Phone: Endocrinology Comment on above: Diabetic Eye Exam Report ([facility] [place]) Start: 02-01-2023 End: 02-01-2023 Patient encounter procedure Chriss Cruz MD Work Phone: [facility] Comment on above: Polyneuropathy (Primary Dx); Moderate episode of recurrent major depressive disorder (HCC); Stage 3a chronic kidney disease (HCC); Essential hypertension Start: 01-31-2023 End: 01-31-[address] Chriss Cruz Work Phone: [facility] Work Phone: Start: 01-30-2023 End: 01-30-[address] Chriss Cruz Work Phone: [facility] Work Phone: Start: 01-14-2023 End: 01-14-2023 Emergency department patient visit Dr. Chriss Cruz Work Phone: [facility]Emergency Department Work Phone: Start: 01-03-2023 End: 01-03-[address] Chriss Cruz Work Phone: Formerly [facility] Work Phone: Start: 12-29-2022 End: 12-29-2022 Patient encounter procedure Chriss Cruz MD Work Phone: [facility] Comment on above: Gastrointestinal hemorrhage, unspecified gastrointestinal hemorrhage type (Primary Dx); Hypertension due to endocrine disorder; Mixed hyperlipidemia; Seizure disorder (HCC); Stage 3a chronic kidney disease (HCC) Start: 12-15-2022 End: 12-15-[address] Chriss Cruz Work Phone: [facility] Work Phone: Start: 12-09-2022 Telephone encounter Chriss Cruz MD Work Phone: [facility] Comment on above: Results Start: 12-06-2022 End: 12-06-[address] Chriss Cruz Work Phone: [facility] Work Phone: Start: 12-02-2022 Telephone encounter Chriss Cruz MD Work Phone: [facility] Comment on above: Results Start: 12-01-2022 End: 12-01-2022 Patient encounter procedure Chriss Cruz MD Work Phone: [facility] Comment on above: Gastrointestinal hemorrhage, unspecified gastrointestinal hemorrhage type (Primary Dx); Seizure disorder (HCC); Essential hypertension; Mixed hyperlipidemia; Stage 3a chronic kidney disease (HCC); Bleeding esophageal varices, unspecified esophageal varices type (HCC); Hepatomegaly; Decreased thyroid stimulating hormone (TSH) level; Iron deficiency anemia due to chronic blood loss Start: 11-28-2022 Patient Outreach Chriss Cruz MD Work Phone: [facility] Comment on above: Transition Of Care Start: 11-26-2022 Non-patient / Non-visit Dr. Chriss Cruz Work Phone: [facility] Start: 11-26-2022 Non-patient / Non-visit Dr. Chriss Cruz Work Phone: [facility] Start: 11-25-2022 Non-patient / Non-visit Dr. Chriss Cruz Work Phone: [facility] Start: 11-24-2022 Non-patient / Non-visit Dr. Chriss Cruz Work Phone: [facility] Start: 11-24-2022 Non-patient / Non-visit Dr. Chriss Cruz Work Phone: [facility] Start: 11-23-2022 Non-patient / Non-visit Dr. Chriss Cruz Work Phone: [facility] Start: 11-23-2022 End: 11-26-2022 Evaluation and management of inpatient Dr. Chriss Cruz Work Phone: [facility] Start: 11-22-[address] Chriss Cruz Work Phone: [facility] Oncology Start: 11-02-2022 End: 11-02-[address] Chriss Cruz Work Phone: [facility] Start: 11-02-2022 End: 11-02-[address] Chriss Cruz Work Phone: [facility] Work Phone: Start: 11-02-2022 End: 11-02-[address] Chriss Cruz Work Phone: [facility] Start: 10-27-[address] Chriss Cruz Work Phone: [facility] Start: 10-06-2022 End: 10-06-2022 Patient encounter procedure Chriss Cruz MD Work Phone: [facility] Comment on above: Seizure disorder (HCC) (Primary [...] for vaccination Start: 09-29-2022 End: 09-29-2022 ambulatory [facility] Work Phone: Start: 09-29-2022 End: 09-29-2022 Patient encounter procedure [facility] Start: 09-20-2022 End: 09-20-2022 Patient encounter procedure Candy Penn APRN.[employer] Work Phone: Endocrinology Comment on above: Type [...] malignant neoplasm of prostate Start: 09-13-2022 Registered [facility] Start: 08-22-2022 End: 08-22-2022 Patient encounter procedure Ruma Ortiz APRN.[employer] Work Phone: [facility] Comment on above: URI, acute (Primary Dx) Start: 07-08-2022 Refill Chriss Cruz MD Work Phone: [facility] [place] Comment on above: Refill Request Start: 06-17-2022 End: 06-17-2022 Patient encounter procedure Candy Penn BUSINESS PROJECT MANAGER.[employer] Work Phone: Endocrinology Comment on above: Type [...] 06-03-2022 Refill Chriss Cruz MD Work Phone: [facility] Comment on above: Refill Request Start: 06-02-2022 Telephone encounter Chriss Cruz MD Work Phone: [facility] Comment on above: Blood Pressure Check Start: 06-02-2022 End: 06-02-2022 Nursing evaluation of patient and report Mi Nurse Work Phone: [facility] Comment on above: Essential hypertension (Primary Dx) Start: 05-19-2022 End: 05-19-[address] Chriss Cruz Work Phone: [facility] Work Phone: Start: 05-19-2022 End: 05-19-[address] Chriss Cruz Work Phone: [facility] Start: 05-10-2022 End: 05-10-[address] Chriss Cruz Work Phone: [facility] Start: 05-04-2022 Telephone encounter Chriss Cruz MD Work Phone: [facility] Comment on above: Blood Pressure Check Start: 05-04-2022 End: 05-04-2022 Nursing evaluation of patient and report Mi Nurse Work Phone: [facility] Comment on above: Essential hypertension (Primary Dx) Start: 05-03-[address] Chriss Cruz Work Phone: [facility] Start: 04-08-2022 Refill Chriss Cruz MD Work Phone: [facility] Comment on above: Refill Request Start: 03-30-2022 End: 03-30-2022 Patient encounter procedure Chriss Cruz MD Work Phone: [facility] Comment on above: Essential hypertension (Primary Dx); [...] patient visit Dr. Chriss Cruz Work Phone: [facility] Start: 02-10-2022 Telephone encounter Roberto [...] encounter procedure Dr. Chriss Cruz Work Phone: [facility] Start: 02-04-2022 Telephone encounter Candy Penn APRN.[employer] Work Phone: Endocrinology Comment on above: Diabetic Eye Exam ([facility]) Bradycardia Start: 02-04-2022 End: 02-04-2022 Patient encounter procedure Candy Penn APRN.[employer] Work Phone: Endocrinology Comment on above: OPENED IN ERROR (Primary Dx) Start: 02-01-2022 End: 02-01-2022 Patient encounter procedure [facility] Start: 01-31-2022 Patient encounter procedure Lisette Lovell DO Work Phone: Infectious Disease Comment on above: Physician To Physician Consult Start: 01-31-2022 Telephone encounter Roberto Suareztaylor Work Phone: Podiatry Comment on above: Patient Update Start: 01-28-2022 End: 01-28-2022 Subsequent hospital visit by physician X[facility] Work Phone: Radiology Comment on above: [...] 01-26-2022 End: 01-26-2022 Emergency department patient visit [facility] Start: 01-07-2022 Registered Recurring [facility] Start: 01-06-2022 Refill Chriss Cruz MD Work Phone: [facility] Comment on above: Refill Request (Out of medication) Start: 12-23-2021 Telephone encounter Chriss Cruz MD Work Phone: [facility] Comment on above: Results Start: 12-22-2021 Refill Roberto Suareztaylor Work Phone: Podiatry Comment on above: Refill Request Start: 12-14-2021 Telephone encounter Abimbola Amos PA-C Work Phone: [facility] Comment on above: Blood Pressure Check Start: 12-14-2021 End: 12-14-2021 Nursing evaluation of patient and report Mi Nurse Work Phone: [facility] Comment on above: Essential hypertension (Primary Dx) Start: 12-02-2021 Telephone encounter Abimbola Amos PA-C Work Phone: [facility] Comment on above: Results Start: 12-01-2021 Orders Only M Ilia Amos PA-C Work Phone: [facility] Comment on above: Acute renal disease (Primary Dx) Start: 11-29-2021 End: 11-29-2021 [facility] Start: 11-29-2021 Telephone encounter Chriss Cruz MD Work Phone: [facility] Comment on above: Patient Update Start: 11-27-2021 End: 11-27-2021 [facility] Start: 11-27-2021 End: 11-27-2021 Patient encounter procedure Chriss Cruz MD Work Phone: [facility] Comment on above: Edema of left lower leg (Primary Dx); Family history of DVT; Anemia, unspecified type; Stage 3a chronic kidney disease (HCC); Hyperkalemia; Cecum cancer (HCC); Essential hypertension; Type 1 diabetes mellitus with diabetic polyneuropathy (HCC); Pain of left lower extremity; Primary hypertension Start: 11-26-2021 Telephone encounter Chriss Cruz MD Work Phone: [facility] Comment on above: Results Start: 11-24-2021 End: 11-24-2021 Patient encounter procedure Chriss Cruz MD Work Phone: [facility] Comment on above: Hyperkalemia (Primary Dx); Primary hypertension; Hyponatremia; Type 1 diabetes mellitus with diabetic polyneuropathy (HCC); Anemia, unspecified type; Stage 3 chronic kidney disease, unspecified whether stage 3a or 3b CKD (HCC); Cecum cancer (HCC); Seizure disorder (HCC); Mixed hyperlipidemia; Essential hypertension Start: 11-22-2021 Telephone encounter Chriss Cruz MD Work Phone: [facility] Comment on above: ER F/U Start: 11-21-2021 End: 11-21-2021 [facility] Start: 11-19-2021 Telephone encounter [facility] Comment on above: Blood Pressure Check Results Start: 11-19-2021 End: 11-19-2021 Nursing evaluation of patient and report Mi Nurse Work Phone: [facility] Comment on above: Essential hypertension (Primary [...] Potassium serum plasma/whole blood Agnes Stefan Susan BUSINESS PROJECT MANAGER-[employer] Work Phone: Start: 12-25-2024 Assay of ferritin [...] Comment: This test was performed on the Bio Immunoassay platform which is a 2-step sandwich chemiluminescent immunoassay. It is important to note that assays using different manufacturers and/or methods may not be comparable. Performed By: #### C [id number] #### [facility] (DEFAULT) [address] [address] Start: 11-08-2024 ALCOHOL (ETHANOL),BLOOD Tyrese Lange MBBS [...] on above: Performed By: #### [id number] #### [facility] (DEFAULT) [address] [place] [address] Start: 08-14-2024 Estimated creatinine clearance Kimberlyn woods [...] Kimberlyn East MD Work Phone: Start: 10-06-2022 [employer] COVID-19 BIVALENT BOOSTER VACCINE, AGE 12+ YR Chriss Cruz MD Work Phone: Start: 09-20-2022 Gluc bld gluc mntr dev cleared fda spec home use Candy Kupiec BUSINESS PROJECT MANAGER.[employer] Work Phone: Start: 09-20-2022 Hemoglobin A1c/Hemoglobin.total in Blood Candy Kupiec BUSINESS PROJECT MANAGER.[employer] Work Phone: Start: 06-17-2022 Hemoglobin A1c/Hemoglobin.total in Blood Candy Kupiec BUSINESS PROJECT MANAGER.[employer] Work Phone: Start: 02-04-2022 Gluc bld gluc mntr dev cleared fda spec home use Candy Kupiec BUSINESS PROJECT MANAGER.[employer] Work Phone: Start: 02-04-2022 Hemoglobin A1c/Hemoglobin.total in Blood Candy Kupiec BUSINESS PROJECT MANAGER.[employer] Work Phone: Start: 01-28-2022 Radex foot complete minimum 3 views Roberto Suareztaylor Work Phone: Start: 01-26-2022 Bacteria identified in [...] specific antigen measurement Prostate Cancer Screening Discussion [facility] Start: 12-02-2027 Prostate specific antigen measurement Prostate Cancer Screening Discussion [facility] Start: 02-24-2027 Tetanus vaccination TETANUS [facility] Start: 02-24-2027 [facility] Start: 04-29-2026 End: 04-29-2026 Patient encounter procedure 04/29/2026 1:00 PM EDT Office Visit Gastroenterology and Hepatology Outpatient Care [facility] [address] [facility] [address] [place] [address] Lillian Hall, DO [address] [place] [address] [place] [address] Gastroenterology and Hepatology Outpatient Care [facility] Start: 11-08-2025 Complete blood count Hemoglobin/Hematocrit [facility] Start: 11-08-2025 Creatinine measurement Serum Creatinine [facility] Start: 11-08-2025 Potassium [Moles/volume] in Serum or Plasma POTASSIUM [facility] Start: 11-08-2025 Prostate specific antigen measurement PROSTATE CANCER SCREENING DISCUSSION [facility] Start: 07-03-2025 Screening for malignant neoplasm of colon COLORECTAL CANCER SCREENING DISCUSSION [facility] Start: 06-30-2025 Patient encounter procedure [facility] [place] Work Phone: Start: 06-30-2025 End: 06-30-2025 Patient encounter procedure Polyneuropathy -[facility] Work Phone: Start: 06-25-2025 End: 06-25-2025 Patient encounter procedure ESRD (end stage renal disease) on dialysis -[facility] Work Phone: Start: 06-05-2025 Complete blood count Hemoglobin/Hematocrit [facility] Start: 06-04-2025 Patient discharge [facility] Start: 05-11-2025 Hemoglobin A1c measurement [facility] Start: 05-02-2025 Prostate specific antigen measurement ASSAY OF PSA TOTAL [facility] Start: 04-28-2025 Influenza vaccination [facility] Start: 04-23-2025 End: 04-23-2025 Patient encounter procedure Imaging Outpatient [facility] Start: 01-01-2025 End: 12-25-2025 CT Abdomen WO and W contrast IV CT ABDOMEN WITH AND WITHOUT CONTRAST Imaging Routine Hepatosplenomegaly Liver lesion Expected: 01/01/2025 (Approximate), Expires: 12/25/2025 [facility] Comment on above: Expected: 01/01/2025 (Approximate), Expi res: 12/25/2025 Start: 12-13-2024 End: 12-13-2024 Patient encounter procedure 12/13/2024 8:30 AM EDT Appointment Imaging [address] [address] Tyrese Lange MBBS [address] [place] [id number] [facility] Start: 12-13-2024 Subsequent hospital visit by physician 12/13/2024 8:30 AM EDT Hospital Encounter Imaging [address] [address] Tyrese Lange MBBS [address] [place] [id number] [facility] Start: 12-11-2024 End: 12-11-2024 Patient encounter procedure [facility] [place] Start: 11-20-2024 End: 11-20-2024 [facility] Comment on above: KTP Pre-transplant evaluation for kidney transplant [Z01.818] CT abd/pelvis-NOT needed Start: 11-08-2024 End: 11-08-2025 C-PEPTIDE C-PEPTIDE Lab Routine Pre-transplant evaluation for kidney transplant Expected: 11/08/2024, Expires: 11/08/2025 [facility] Comment on above: Expected: 11/08/2024, Expires: Start: 11-08-2024 End: 11-08-2025 CTA Abdominal Aorta and Bilateral Runoff Vessels W contrast IV CT ANGIO ABDOMINAL AORTA WITH RUNOFF Imaging Routine Pre-transplant evaluation for kidney transplant ESRD (end stage renal disease) on dialysis Expected: 11/08/2024, Expires: 11/08/2025 [facility] Comment on above: Expected: 11/08/2024, Expires: Start: 11-08-2024 End: 11-08-2025 Echocardiography ECHOCARDIOGRAM Echocardiography Routine Pre-transplant evaluation for kidney transplant ESRD (end stage renal disease) on dialysis Expected: 11/08/2024, Expires: 11/08/2025 [facility] Comment on above: Expected: 11/08/2024, Expires: Start: 11-08-2024 End: 11-08-2025 ETHANOL (ALCOHOL), URINE ETHANOL (ALCOHOL), URINE Lab Routine Pre-transplant evaluation for kidney transplant Expected: 11/08/2024, Expires: 11/08/2025 [facility] Comment on above: Expected: 11/08/2024, Expires: Start: 11-08-2024 End: 11-08-2025 HLA TYPING (SOLID ORGAN) [facility] Comment on above: Expected: 11/08/2024, Expires: Start: 11-08-2024 End: 11-08-2025 HSV IGM ANTIBODY [facility] Comment on above: Expected: 11/08/2024, Expires: Start: 11-08-2024 End: 11-08-2025 M TUBERCULOSIS BY QUANTIFERON, BLD [facility] Comment on above: Expected: 11/08/2024, Expires: Start: 11-08-2024 End: 11-08-2025 PRA CLASS (PRE-TRANSPLANT) [place] Comment on above: Expected: 11/08/2024, Expires: Start: 11-08-2024 End: 11-08-2025 SPECT Heart perfusion at rest and W stress and W radionuclide IV NUC MYOCARD PERF STRESS MIBI EXERCISE Cardiac Nuclear Medicine Routine Pre-transplant evaluation for kidney transplant ESRD (end stage renal disease) on dialysis Expected: 11/08/2024, Expires: 11/08/2025 [facility] Comment on above: Expected: 11/08/2024, Expires: Start: 11-08-2024 End: 11-08-2025 TOXICOLOGY DRUG SCREEN, SERUM [facility] Comment on above: Expected: 11/08/2024, Expires: Start: 10-30-2024 Patient discharge [facility] Start: 06-07-2024 Administration of blood product [facility] Start: 06-07-2024 [facility] Start: 05-30-2024 Administration of blood product [facility] Start: 05-30-2024 [facility] Start: 05-22-2024 Venous catheter care management [facility] Start: 04-28-2024 COVID-19 VACCINE ( season) COVID-19 VACCINE ( season) [facility] Start: 04-28-2024 Covid-19 Vaccine ( season) Covid-19 Vaccine ( season) [facility] Start: 04-28-2024 Influenza vaccination Influenza Vaccine (#1) [facility] Start: 02-08-2024 Glaucoma screening Dilated Retinal Exam [facility] Start: 02-08-2024 Hepatitis C antibody, confirmatory test DILATED RETINAL EXAM [facility] Start: 02-02-2024 3 comp foot exam completed DIABETIC FOOT EXAM [facility] bryan Start: 02-02-2024 ANNUAL PCP TEAM CHRONIC DISEASE VISIT ANNUAL PCP TEAM CHRONIC DISEASE VISIT [facility] Start: 02-02-2024 Diabetic foot examination Diabetic Foot Exam [facility] Start: 02-02-2024 SHINGRIX VACCINE (1 of 2) SHINGRIX VACCINE (1 of 2) [facility] Comment on above: Postponed from 1987 (Declined at t his time) Start: 01-06-2024 Creatinine measurement Serum Creatinine [facility] Start: 01-06-2024 SERUM CREATININE SERUM CREATININE [facility] Start: 12-30-2023 ANNUAL PCP TEAM CHRONIC DISEASE VISIT ANNUAL PCP TEAM CHRONIC DISEASE VISIT [facility] Start: 12-23-2023 Hemoglobin A1c measurement HbA1C [facility] Start: 12-23-2023 Hemoglobin A1c/Hemoglobin.total in Blood HbA1C [facility] Start: 12-18-2023 Venous catheter care management [facility] Start: 12-09-2023 HEMOGLOBIN/HEMATOCRIT HEMOGLOBIN/HEMATOCRIT [facility] Start: 12-09-2023 SERUM CREATININE SERUM CREATININE [facility] Start: 12-09-2023 Patient discharge [facility] Start: 12-09-2023 Venous catheter care management [facility] Start: 12-08-2023 Thyroid stimulating hormone measurement [facility] Start: 12-08-2023 [facility] Start: 12-07-2023 Following clinical pathway protocol [facility] Start: 12-07-2023 Ambulation without limitation [facility] Start: 12-07-2023 Assessment of risk of venous thromboembolism [facility] Start: 12-07-2023 Care regimes management [facility] Start: 12-07-2023 Incentive spirometry [facility] Start: 12-07-2023 Insertion of catheter into peripheral vein [facility] Start: 12-07-2023 Measuring intake and output [facility] Start: 12-07-[address] [facility] Start: 12-07-2023 Oxygen therapy [facility] Start: 12-07-2023 Providing care according to standard [facility] Start: 12-07-2023 Referral to broodmare foreman [facility] Start: 12-07-2023 Referral to service [facility] Start: 12-07-2023 [facility] Start: 12-07-2023 Verification routine [facility] Start: 12-07-2023 Admission procedure [facility] Start: 12-07-2023 Collection venous blood venipuncture ROUTINE VENIPUNCTURE [facility] Start: 12-07-2023 Comprehensive metabolic panel COMPREHEN METABOLIC PANEL [facility] Start: 12-07-2023 Patient referral to dietitian [facility] Start: 12-07-2023 [facility] Start: 12-02-2023 ANNUAL PCP TEAM CHRONIC DISEASE VISIT ANNUAL PCP TEAM CHRONIC DISEASE VISIT [facility] Start: 12-02-2023 HEMOGLOBIN/HEMATOCRIT HEMOGLOBIN/HEMATOCRIT [facility] Start: 12-02-2023 Hepatitis B screening URINE ALBUMIN:CREATININE RATIO [facility] Start: 12-02-2023 Hepatitis B surface antibody level LDL CHOLESTEROL [facility] Start: 12-02-2023 SERUM CREATININE SERUM CREATININE [facility] Start: 11-03-2023 Venous catheter care management [facility] Start: 10-16-2023 [facility] Start: 10-06-2023 ANNUAL PCP TEAM CHRONIC DISEASE VISIT ANNUAL PCP TEAM CHRONIC DISEASE VISIT [facility] Start: 10-06-2023 COLORECTAL CANCER SCREENING COLORECTAL CANCER SCREENING [facility] Comment on above: Postponed from 2013 (Declined at t his time) Start: 08-09-2023 Venous catheter care management [facility] Start: 08-02-2023 Egd band ligation esophgeal/gastric varices EGD VARICES LIGATION [facility] Start: 08-02-2023 Venous catheter care management [facility] Start: 08-02-2023 Patient discharge [facility] Start: 07-25-2023 Celiac disease screen [facility] Start: 07-25-2023 IgE [Units/volume] in Serum or Plasma [facility] Start: 07-25-2023 IgG subclass panel [Mass/volume] - Serum [facility] Start: 07-25-2023 Serum immunofixation [facility] Start: 07-25-2023 [facility] Start: 06-02-2023 Hemoglobin A1c/Hemoglobin.total in Blood HBA1C [facility] Start: 05-25-2023 Venous catheter care management [facility] Start: 04-28-2023 Covid-19 Vaccine ( season) Covid-19 Vaccine ( season) [facility] Start: 04-28-2023 Influenza vaccination [facility] Start: 03-30-2023 ANNUAL PCP TEAM CHRONIC DISEASE VISIT ANNUAL PCP TEAM CHRONIC DISEASE VISIT [facility] Start: 02-24-2023 Influenza vaccination INFLUENZA (#1) [facility] Comment on above: Postponed from 04/28/2022 (Declined at t his time) Start: 02-15-2023 ANNUAL PCP TEAM CHRONIC DISEASE VISIT ANNUAL PCP TEAM CHRONIC DISEASE VISIT [facility] Start: 02-04-2023 HEMOGLOBIN/HEMATOCRIT HEMOGLOBIN/HEMATOCRIT [facility] Start: 02-04-2023 SERUM CREATININE SERUM CREATININE [facility] Start: 02-03-2023 Hepatitis C antibody, confirmatory test DILATED RETINAL EXAM [facility] Start: 12-29-2022 End: 02-28-2023 Basic metabolic 2000 panel - Serum or Plasma [facility] Work Phone: Comment on above: Expected: 12/29/2022, Expires: Start: 12-27-2022 Venous catheter care management [facility] Start: 12-22-2022 ANNUAL PCP TEAM CHRONIC DISEASE VISIT ANNUAL PCP TEAM CHRONIC DISEASE VISIT [facility] Start: 12-22-2022 HEMOGLOBIN/HEMATOCRIT HEMOGLOBIN/HEMATOCRIT [facility] Start: 12-22-2022 SERUM CREATININE SERUM CREATININE [facility] Start: 12-19-2022 End: 02-18-2023 ALBUMIN/CREAT RATIO RND [...] edema (HCC) Expected: 12/19/2022 (Approximate), Expires: 02/18/2023 [facility] Work Phone: Comment on above: Expected: 12/19/2022 (Approximate), Expi res: 02/18/2023 Start: 12-19-2022 End: 02-18-2023 BIOAVAIL TESTO/SHBG, ADULT MALE BIOAVAIL TESTO/SHBG, ADULT MALE Lab Routine Hypogonadism in male Expected: 12/19/2022 (Approximate), Expires: 02/18/2023 [facility] Work Phone: Comment on above: Expected: 12/19/2022 [...] edema (HCC) Expected: 12/19/2022 (Approximate), Expires: 02/18/2023 [facility] Work Phone: Comment on above: Expected: 12/19/2022 [...] edema (HCC) Expected: 12/19/2022 (Approximate), Expires: 02/18/2023 [facility] Work Phone: Comment on above: Expected: 12/19/2022 (Approximate), Expi res: 02/18/2023 Start: 12-19-2022 Hemoglobin A1c/Hemoglobin.total in Blood HBA1C [facility] Start: 12-19-2022 End: 02-18-2023 Lipid 1996 panel [...] Mixed hyperlipidemia Expected: 12/19/2022 (Approximate), Expires: 02/18/2023 [facility] Work Phone: Comment on above: Expected: 12/19/2022 (Approximate), Expi res: 02/18/2023 Start: 12-19-2022 End: 02-18-2023 PSA/PROSTSPECAG SCRN PSA/PROSTSPECAG SCRN Lab Routine Hypogonadism in male Encounter for screening for malignant neoplasm of prostate Expected: 12/19/2022 (Approximate), Expires: 02/18/2023 [facility] Work Phone: Comment on above: Expected: 12/19/2022 [...] edema (HCC) Expected: 12/19/2022 (Approximate), Expires: 02/18/2023 [facility] Work Phone: Comment on above: Expected: 12/19/2022 (Approximate), Expi res: 02/18/2023 Start: 12-18-2022 End: 02-17-2023 carBAMazepine [Mass/volume] in Serum or Plasma CARBAMAZEPI/TEGRETOL Lab Routine Seizure disorder (HCC) Trigeminal neuralgia Expected: 12/18/2022, Expires: 02/17/2023 [facility] Work Phone: Comment on above: Expected: 12/18/2022, Expires: 3 Start: 12-07-2022 COLORECTAL CANCER SCREENING COLORECTAL CANCER SCREENING [facility] Start: 12-07-2022 FECAL OCCULT BLOOD FECAL OCCULT BLOOD [facility] Start: 12-07-2022 Screening for malignant neoplasm of colon [facility] Start: 12-07-2022 SERUM CREATININE SERUM CREATININE [facility] Start: 12-02-2022 End: 02-01-2023 Basic metabolic 2000 panel - Serum or Plasma BASIC METABOLIC PNL Lab Routine Gastrointestinal hemorrhage, unspecified gastrointestinal hemorrhage type Stage 3a chronic kidney disease (HCC) Expected: 12/02/2022, Expires: 02/01/2023 [facility] Work Phone: Comment on above: Expected: 12/02/2022, Expires: 3 Start: 12-02-2022 End: 02-01-2023 CBC W Auto Differential panel - Blood CBC + DIFF Lab Routine Gastrointestinal hemorrhage, unspecified gastrointestinal hemorrhage type Stage 3a chronic kidney disease (HCC) Expected: 12/02/2022, Expires: 02/01/2023 [facility] Work Phone: Comment on above: Expected: 12/02/2022, Expires: Start: 12-01-2022 Covid-19 Vaccine (6 - Moderna risk series) Covid-19 Vaccine (6 - Moderna risk series) [facility] Start: 11-30-2022 ANNUAL PCP TEAM CHRONIC DISEASE VISIT ANNUAL PCP TEAM CHRONIC DISEASE VISIT [facility] Start: 11-30-2022 SERUM CREATININE SERUM CREATININE [facility] Start: 11-28-2022 [facility] Start: 11-27-2022 ANNUAL PCP TEAM CHRONIC DISEASE VISIT ANNUAL PCP TEAM CHRONIC DISEASE VISIT [facility] Start: 11-27-2022 Prothrombin time [facility] Start: 11-27-2022 [facility] Start: 11-26-2022 HEMOGLOBIN/HEMATOCRIT HEMOGLOBIN/HEMATOCRIT [facility] Start: 11-26-2022 SERUM CREATININE SERUM CREATININE [facility] Start: 11-26-2022 Patient discharge [facility] Start: 11-25-2022 Recommendation to continue with treatment [facility] Start: 11-24-2022 ANNUAL PCP TEAM CHRONIC DISEASE VISIT ANNUAL PCP TEAM CHRONIC DISEASE VISIT [facility] Start: 11-24-2022 Catheterization of vein [facility] Start: 11-23-2022 Referral to gastroenterology service [facility] Start: 11-23-2022 Application of intermittent pneumatic compression device [facility] Start: 11-23-2022 Venous catheter care management [facility] Start: 11-23-2022 Assessment of risk of venous thromboembolism [facility] Start: 11-23-2022 Cardiac monitoring [facility] Start: 11-23-2022 Care regimes management [facility] Start: 11-23-2022 Insertion of catheter into peripheral vein [facility] Start: 11-23-2022 Measuring intake and output [facility] Start: 11-23-2022 Providing care according to standard [facility] Start: 11-23-2022 Provision of activity privileges [facility] Start: 11-23-2022 Referral to service [facility] Start: 11-23-2022 [facility] Start: 11-23-2022 Following clinical pathway protocol [facility] Start: 11-23-2022 CT of head without contrast Brain/Head without Contrast [facility] Start: 11-23-2022 CT Unspecified body region WO contrast [facility] Start: 11-23-2022 Electroencephalogram [facility] Start: 11-23-2022 Verification routine [facility] Start: 11-23-2022 Admission procedure [facility] Start: 11-23-2022 Leukocyte reduced red blood cells [facility] Start: 11-23-2022 End: 11-23-2022 [facility] Start: 11-23-2022 Administration of blood product [facility] Start: 11-23-2022 [facility] Start: 11-23-2022 Patient referral to dietitian [facility] Start: 11-19-2022 SERUM CREATININE SERUM CREATININE [facility] Start: 11-10-2022 Hepatitis B screening URINE ALBUMIN:CREATININE RATIO [facility] Start: 11-10-2022 Hepatitis B surface antibody level LDL CHOLESTEROL [facility] Start: 11-10-2022 SERUM CREATININE SERUM CREATININE [facility] Start: 10-26-2022 3 comp foot exam completed DIABETIC FOOT EXAM [facility] Start: 10-13-2022 ANNUAL PCP TEAM CHRONIC DISEASE VISIT ANNUAL PCP TEAM CHRONIC DISEASE VISIT [facility] Start: 10-07-2022 HEMOGLOBIN/HEMATOCRIT HEMOGLOBIN/HEMATOCRIT [facility] Start: 09-17-2022 Hemoglobin A1c/Hemoglobin.total in Blood HBA1C [facility] Start: 05-07-2022 Hemoglobin A1c/Hemoglobin.total in Blood HBA1C [facility] Start: 04-28-2022 Influenza vaccination INFLUENZA (#1) [facility] Start: 04-20-2022 COLORECTAL CANCER SCREENING COLORECTAL CANCER SCREENING [facility] Start: 04-20-2022 FECAL OCCULT BLOOD FECAL OCCULT BLOOD [facility] Start: 02-02-2022 Hepatitis C antibody, confirmatory test DILATED RETINAL EXAM [facility] Start: 01-29-2022 Hemoglobin A1c/Hemoglobin.total in Blood HBA1C [facility] Start: 01-27-2022 COVID-19 VACCINE (5 - Booster for Moderna series) COVID-19 VACCINE (5 - Booster for Moderna series) [facility] Start: 01-26-2022 Bacteria identified in Blood by Culture Blood Culture [facility] Work Phone: Start: 01-26-2022 [facility] Work Phone: Start: 12-08-2021 End: 02-07-2022 Basic metabolic 2000 panel - Serum or Plasma BASIC METABOLIC PNL Lab Routine Acute renal disease Expected: 12/08/2021, Expires: 02/07/2022 [facility] Work Phone: Comment on above: Expected: 12/08/2021, Expires: 2 Start: 11-26-2021 End: 01-26-2022 Basic metabolic 2000 panel - Serum or Plasma [facility] Work Phone: Comment on above: Expected: 11/26/2021, Expires: 2 Start: 11-26-2021 End: 11-24-2022 CBC W Auto Differential panel - Blood [facility] Work Phone: Comment on above: Expected: 11/26/2021, Expires: 3 Expected: 11/26/2021 , Expires: 01/26/2022 Start: 11-26-2021 End: 11-24-2022 FERRITIN BLD FERRITIN BLD Lab Routine Anemia, unspecified type Expected: 11/26/2021, Expires: 11/24/2022 [facility] Work Phone: Comment on above: Expected: 11/26/2021, Expires: 3 Start: 11-26-2021 End: 11-24-2022 Folate [Mass/volume] in Serum or Plasma FOLATE SERUM Lab Routine Anemia, unspecified type Expected: 11/26/2021, Expires: 11/24/2022 [facility] Work Phone: Comment on above: Expected: 11/26/2021, Expires: 3 Start: 11-26-2021 End: 11-24-2022 IRON + TIBC IRON + TIBC Lab Routine Anemia, unspecified type Expected: 11/26/2021, Expires: 11/24/2022 [facility] Work Phone: Comment on above: Expected: 11/26/2021, Expires: 3 Start: 11-26-2021 End: 11-24-2022 VITAMIN B12 BLOOD VITAMIN B12 BLOOD Lab Routine Anemia, unspecified type Expected: 11/26/2021, Expires: 11/24/2022 [facility] Work Phone: Comment on above: Expected: 11/26/2021, Expires: 3 Start: 11-24-2021 End: 11-24-2022 Hemoglobin.gastrointestina l.lower [Presence] in Stool by Immunoassay FECAL OCCULT BLOOD TEST Lab Routine Anemia, unspecified type Expected: 11/24/2021, Expires: 11/24/2022 [facility] Work Phone: Comment on above: Expected: 11/24/2021, Expires: 3 Start: 07-29-2021 Venous catheter care management [facility] Start: 01-22-2021 Venous catheter care management [facility] Start: 12-11-2020 Venous catheter care management [facility] Start: 10-02-2020 Venous catheter care management [facility] Start: 07-26-2019 Flushing of Port-a-cath [facility] Start: 07-26-2019 Irrigation of vascular catheter [facility] Start: 2018 SHINGRIX VACCINE (1 of 2) SHINGRIX VACCINE (1 of 2) [facility] Start: 2018 Zoster vaccine hzv live for subcutaneous use ZOSTER (SHINGLES) VACCINE (1 of 2) [facility] Start: 09-27-2018 Flushing of Port-a-cath [facility] Start: 09-27-2018 Irrigation of vascular catheter [facility] Start: 06-21-2018 Flushing of Port-a-cath [facility] Start: 06-21-2018 Irrigation of vascular catheter [facility] Start: 05-24-2018 Fl[place] of Port-a-cath [facility] Start: 05-24-2018 Irrigation of vascular catheter [facility] Start: 10-18-2017 [facility] Start: 08-26-2016 Colonoscopy COLONOSCOPY [facility] Start: 08-26-2016 Screening for malignant neoplasm of colon [facility] Start: 05-28-2015 PNEUMOCOCCAL (3 - PCV) PNEUMOCOCCAL (3 - PCV) [facility] Start: 2013 COLOGUARD (FIT-DNA) COLOGUARD (FIT-DNA) [facility] Start: [address] COLONOGRAPHY [facility] Start: 2013 Screening for malignant neoplasm of colon [facility] Start: 2013 SIGMOIDOSCOPY SIGMOIDOSCOPY [facility] Start: 2008 Lipid panel LIPID SCREENING [facility] Start: 1987 HEPATITIS B (1 of 3 - Risk 3-dose series) HEPATITIS B (1 of 3 - Risk 3-dose series) [facility] Start: 1987 SHINGRIX VACCINE (1 of 2) SHINGRIX VACCINE (1 of 2) [facility] Start: 1986 Anxiety Screening Anxiety Screening [facility] Start: 1986 BP CONTROLLED (<130/80) [facility] Start: 1968 Diabetic foot examination DIABETIC FOOT EXAM [facility] Start: 1968 Glaucoma screening EYE EXAM [facility] Start: 1968 HEPATITIS B (1 of 3 - 3-dose series) HEPATITIS B (1 of 3 - 3-dose series) [facility] Start: 1968 Lipid panel LIPIDS [facility] Start: 1968 Urine screening for protein URINE MICROALBUMIN TEST [facility] AFP TUMOR MARKER AFP TUMOR MARKE R Lab Routine Liver lesion Portal hypertension 04/23/2025 3:30 PM EDT [facility] Alanine aminotransfe rase [Enzymatic activity/volume] in Serum or Plasma [facility] Albumin [Mass/volume ] in Serum or Plasma [facility] Albumin [Moles/volum e] in Serum or Plasma [facility] Albumin/Globulin ratio [facility] Alkaline phosphatase [Enzymatic activity/volume] in Serum or Plasma [facility] KENNETH SCREEN IFA KENNETH SCREEN IFA L ab Routine Hepatosplenomegaly 12/25/2024 3:40 PM EDT [facility] Anion gap measurement [facility] ANTI MITOCHONDRIAL ANTIBODY ANTI MITOCHONDRIAL ANTIBODY Lab Routine Hepatosplenomegaly 12/25/2024 3:40 PM EDT [facility] ANTI SMOOTH MUSCLE ANTIBODY ANTI SMOOTH MUSCLE ANTIBODY Lab Routine Hepatosplenomegaly 12/25/2024 3:40 PM EDT [facility] Aspartate aminotrans ferase [Enzymatic activity/volume] in Serum or Plasma [facility] Bacteria identified in Wound by Culture WOUND CULTURE AND GRAM STAIN Microbiology Routine 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, limited to breakdown of skin ([facility]) 01/28/2022 2:28 PM EDT [facility] Work Phone: Bilirubin, total measurement [facility] Blood chemistry [facility] Work Phone: BUN/Creatinine ratio [facility] Calcium [Mass/volume ] in Serum or Plasma [facility] carBAMazepine [Mass/volume] in Serum or Plasma [facility] Work Phone: carBAMazepine [Mass/volume] in Serum or Plasma [facility] Carbon dioxide, tota l [Moles/volume] in Serum or Plasma [facility] Carcinoembryonic Ag [Mass/volume] in Serum or Plasma [facility] Work Phone: CBC W Auto Different ial panel - Blood [facility] Work Phone: CBC W Auto Different ial panel - Blood [facility] Ceruloplasmin [Mass/volume] in Serum or Plasma [facility] Chloride [Moles/volu me] in Serum or Plasma [facility] Copper [Moles/volume ] in Serum or Plasma [facility] Creatinine [Moles/vo lume] in Serum or Plasma [facility] CT Abdomen and Pelvi s W contrast IV [facility] Work Phone: CT Abdomen and Pelvi s W contrast IV [facility] CT Abdomen and Pelvi s W contrast IV [facility] End: 04-05-2025 CT Abdomen WO and W contrast IV [facility] Comment on above: 1 Occurrences starting 04/05/2025 until 04/05/2025 CT Chest W contrast IV [facility] Work Phone: CT Chest W contrast IV [facility] Electrophoresis: [id number] [facility] Electrophoresis: demond ma globulin [facility] Erythrocyte mean corpuscular volume determination [facility] Erythrocyte sediment ation rate [facility] Work Phone: Erythropoietin (EPO) [Units/volume] in Serum or Plasma [facility] Work Phone: Ferritin [Mass/volum e] in Serum or Plasma [facility] Work Phone: Folate [Mass/volume] in Serum or Plasma [facility] Work Phone: Globulin measurement [facility] Glucose [Mass/volume ] in Serum or Plasma GLUCOSE, BLOOD (POC) Lab Routine 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) Type 1 diabetes mellitus with stage 3 chronic kidney disease, unspecified whether stage 3a or 3b CKD (HCC) 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) Ordered: 09/20/2022 [facility] Work Phone: Comment on above: Ordered: 09/20/2022 Glucose [Mass/volume ] in Serum or Plasma [facility] Hematocrit [Volume Fraction] of Blood [facility] Hemoglobin [Mass/vol ume] in Blood [facility] End: 12-30-2024 HEPATIC WEDGE PRESSURE/VENO [facility] Work Phone: Comment on above: One Time for 1 Occurrences starting 12/2024 until 12/30/2024 Hepatitis A virus Ig M Ab [Presence] in Serum [facility] Hepatitis B core ant ibody measurement, IgM type [facility] Hepatitis B surface antigen measurement [facility] Hepatitis C antibody measurement [facility] IgA [Mass/volume] in Serum or Plasma [facility] IgG [Mass/volume] in Serum or Plasma [facility] IgG subclass 1 [Mass/volume] in Serum [facility] IgG subclass 2 [Mass/volume] in Serum [facility] IgG subclass 3 [Mass/volume] in Serum [facility] IgG subclass 4 [Mass/volume] in Serum [facility] IgM [Mass/volume] in Serum or Plasma [facility] Immunoglobulin measurement [facility] Work Phone: Iron and Iron bindin g capacity panel - Serum or Plasma [facility] Work Phone: Leukocytes [#/volume ] in Blood [facility] Magnesium [Mass/volu me] in Serum or Plasma [facility] Mean corpuscular hemoglobin concentration determination [facility] Mean corpuscular hemoglobin determination [facility] Measurement of immunoglobulin A in serum specimen [facility] Measurement of renal function [facility] Mitochondria Ab [Pre sence] in Serum [facility] Neutrophil count [facility] Neutrophil cytoplasm ic Ab.classic [Units/volume] in Serum [facility] Neutrophil percent differential count [facility] P-ANCA measurement [facility] Patient Education [facility] Work Phone: Patient referral [facility] Work Phone: PHOSPHATIDYLETHANOL (PETH), WHOLE BLOOD QUANTITATIVE PHOSPHATIDYLETHANOL (PETH), WHOLE BLOOD QUANTITATIVE Lab Routine Hepatosplenomegaly 12/25/2024 3:41 PM EDT [facility] Platelets [#/volume] in Blood [facility] Potassium [Moles/vol ume] in Serum or Plasma [facility] Protein electrophore sis panel - Serum or Plasma [facility] Radionuclide gastric emptying study [facility] Red blood cell count [facility] Red cell distributio n width determination [facility] Reticulocyte count [facility] Work Phone: Serum immunofixation [facility] Work Phone: Serum inorganic phos phate measurement [facility] Smooth muscle Ab [Presence] in Serum [facility] Sodium [Moles/volume ] in Serum or Plasma [facility] End: 01-27-2025 SURG PATH REQUEST [facility] Work Phone: Comment on above: One Time for 1 Occurrences starting 09/2024 until 01/27/2025, 1 completed Testosterone Free [Mass/volume] in Serum or Plasma [facility] Testosterone measurement [facility] Tissue transglutamin ase IgA Ab [Units/volume] in Serum [facility] Total protein measurement [facility] End: 12-30-2024 TRANSCATHETER BIOPSY [facility] Comment on above: One Time for 1 Occurrences starting 12/2024 until 12/30/2024 Transferrin [Mass/vo lume] in Serum or Plasma [facility] Urea nitrogen [Mass/volume] in Serum or Plasma [facility] AV fistula [facility] US Carotid arteries [facility] End: 11-24-2022 US RENAL ARTERY [facility] RENAL [facility] Vascular Lab Routine Hyperkalemia Primary hypertension 1 Occurrences starting 11/24/2021 until 11/24/2022 [facility] Work Phone: Comment on above: 1 Occurrences starting 11/24/2021 until 11/24/2022 Vitamin B12 measurement [facility] Work Phone: [facility] Immunizations Immunization Date Immunization Notes Care Provider Jennifer alvarado 09-10-2024 Hepatitis B vaccine (recombinant), CpG adjuvanted Dione Love RN [facility] 08-06-2024 Hepatitis B vaccine (recombinant), CpG adjuvanted Dione Love RN [facility] 07-27-2024 pneumococcal conjuga te (PCV20) vaccine, 20 valent (PREVNAR 20) Dione Love RN [facility] 10-06-2022 COVID-19 booster vaccine, age 12+ yr, bivalent ([employer]) Chriss Cruz MD Work Phone: [facility] 12-02-2021 Lizaid (Moderna) Dr. Chriss Cruz Work Phone: [facility] 07-09-2021 Gutierrez (Moderna) Dr. Chriss Cruz Work Phone: [facility] 07-09-2021 Influenza, injectabl e, Madin Nicky Canine Kidney, preservative free, quadrivalent Chriss Cruz MD Work Phone: [facility] 07-09-2021 influenza virus vacc ine, unspecified formulation Chriss Cruz MD Work Phone: [facility] 12-02-2020 COVID-19 vaccine, fu ll dose (MODERNA) De Nurse Work Phone: [facility] 11-04-2020 COVID-19 vaccine, fu ll dose (MODERNA) De Nurse Work Phone: [facility] 02-24-2017 tetanus toxoid, redu jacky diphtheria toxoid, and acellular pertussis vaccine, adsorbed De Nurse Work Phone: [facility] 05-28-2014 pneumococcal polysaccharide vaccine, 23 valent De Nurse Work Phone: [facility] 04-02-2009 pneumococcal polysaccharide vaccine, 23 valent De Nurse Work Phone: [facility] 04-02-2009 Pneumococcal Vaccine [facility] Work Phone: 04-02-2009 pneumococcal vaccine , unspecified formulation [facility] 01-18-2007 pneumococcal polysaccharide vaccine, 23 valent De Nurse Work Phone: [facility] Work Phone: Payers Date Payer Category Payer Medicaid (Managed Care) [facility] [id number] 2017 Medicaid [employer] [facility] [id number] 2017-Present [phone] [address] [place] [address] Medicaid [id number] 2017 Medicaid [id number] 2017 Unknown [id number] 2016 Self-pay [id number] 2016 Unknown [id number] 1968 Unknown [id number] 2.840.1.878109.3.579.2. 594 1968 Unknown [id number] 2.840.1.105982.3.579.2. 594 1968 Unknown [id number] 2840.1.714060.3.579.2. 594 1968 Unknown [id number] 2.840.1.796402.3.579.2. 594 1968 Unknown [id number] 2.840.1.059016.3.579.2. 594 1968 Unknown [id number] 2.840.1.069250.3.579.2. 594 1968 Unknown [id number] .840.1.999719.3.579.2. 594 1968 Unknown [id number] .840.1.390824.3.579.2. 594 1968 Unknown [id number] 2.840.1.830278.3.579.2. 594 1968 Unknown [id number] 2.840.1.586096.3.579.2. 594 1968 Unknown [id number] 2.840.1.357587.3.579.2. 594 1968 Unknown [id number] 2.16.840.1.597920.3.579.2. 594 1968 Unknown [id number] 2..840.1.413156.3.579.2. 594 1968 Unknown [id number] 2.16.840.1.664243.3.579.2. 594 Unknown [id number] 2.840.1.147198.3.579.2. 462 Unknown [id number] 2.840.1.802827.3.579.2. 462 Unknown [id number] 2.840.1.646867.3.579.2. 462 Unknown [id number] 2.840.1.906046.3.579.2. 462 Unknown [id number] 2.840.1.012626.3.579.2. 462 Unknown [id number] 2.840.1.523165.3.579.2. 462 Unknown [id number] 2.840.1.824964.3.579.2. 462 Unknown [id number] 2.840.1.005841.3.579.2. 462 Unknown [id number] 2.840.1.062997.3.579.2. 462 Unknown [id number] 2.840.1.804557.3.579.2. 462 Unknown [id number] 2.840.1.648964.3.579.2. 462 Unknown [id number] 2.840.1.762748.3.579.2. 462 Unknown [id number] 2.840.1.928929.3.579.2. 462 Unknown [id number] 2.16840.1.486626.3.579.2. 462 Unknown [id number] 2.840.1.126812.3.579.2. 462 Unknown [id number] 2.16.840.1.081530.3.579.2. 462 Unknown [id number] 2.16.840.1.946886.3.579.2. 462 Unknown [id number] 2.16.840.1.111195.3.579.2. 462 Unknown [id number] 2.16.840.1.654750.3.579.2. 462 Unknown [id number] 2.16.840.1.634162.3.579.2. 462 Unknown [id number] 2.16.840.1.074219.3.579.2. 462 Unknown [id number] 2.840.1.169827.3.579.2. 462 Unknown [id number] 2.840.1.876686.3.579.2. 462 Unknown [id number] 2.840.1.541488.3.579.2. 462 Unknown [id number] 2.840.1.297737.3.579.2. 462 Unknown [id number] 2..840.1.890155.3.579.2. 462 Unknown [id number] 2.16.840.1.624705.3.579.2. 462 Unknown [id number] 2.16840.1.766314.3.579.2. 462 Unknown [id number] 2.840.1.272442.3.579.2. 462 Unknown [id number] 2.16.840.1.679935.3.579.2. 462 Unknown [id number] 2.16.840.1.783840.3.579.2. 462 Unknown [id number] 2.16.840.1.988192.3.579.2. 462 Unknown [id number] 2.16.840.1.801642.3.579.2. 462 Unknown [id number] 2.16.840.1.199312.3.579.2. 462 Unknown [id number] 2.16.840.1.127525.3.579.2. 462 Unknown [id number] 2.16840.1.091663.3.579.2. 462 Unknown [id number] 2.16.840.1.145543.3.579.2. 462 Unknown [id number] 2.16840.1.379000.3.579.2. 462 Unknown [id number] 2.16840.1.183298.3.579.2. 462 Unknown [id number] 2.840.1.822995.3.579.2. 462 Unknown [id number] 2.840.1.078966.3.579.2. 462 Unknown [id number] 2.840.1.801395.3.579.2. 462 Unknown [id number] 2.840.1.854048.3.579.2. 462 Unknown [id number] 2.840.1.591200.3.579.2. 462 Unknown [id number] 2.840.1.544195.3.579.2. 462 Unknown [id number] 2.840.1.431232.3.579.2. 462 Unknown [id number] 2.840.1.548419.3.579.2. 462 Unknown [id number] 2.16840.1.176045.3.579.2. 462 Unknown [id number] 2.16840.1.617211.3.579.2. 462 Unknown [id number] 2.16840.1.825841.3.579.2. 462 Unknown [id number] 2.16840.1.864706.3.579.2. 462 Unknown [id number] 2.16840.1.682512.3.579.2. 462 Unknown [id number] 2.16840.1.510921.3.579.2. 462 Social History Date Type Detail Facility Start: 07-16-2014 End: 06-04-2025 Tobacco smoking status NHIS Ex-smoker [facility] Work Phone: Start: 09-10-1986 End: 10-27-2003 History of tobacco use Current smoker [facility] Work Phone: End: 10-27-2003 History of tobacco use Cigar Smoker [facility] Work Phone: Start: 11-19-2021 End: 04-23-2025 Alcohol intake Current non-drinker of alcohol (finding) [facility] Start: 03-01-2012 History SDOH Alcohol Comment recovering alcoholic, quit 2003 [facility] Start: 1970 Sex Assigned At Not on file C [facility] Start: 11-06-2021 End: 11-16-2021 Exposure to SARS-CoV-2 (event) Unable to assess [facility] Work Phone: Start: 11-12-2021 End: 06-17-2022 Exposure to SARS-CoV-2 (event) Not sure [facility] Start: 01-26-2022 End: 07-31-2023 Tobacco smoking status DEIS Unknown if ever smoked [facility] Start: 12-21-2020 None [facility] Start: 12-21-2020 Spouse/ Signif icant Other [facility] Start: 12-24-2020 Cigarettes [facility] Start: 1970 Sex Assigned At Male W [facility] Start: 09-10-1986 End: 10-27-2003 History of tobacco use Cigarette Smoker [facility] Start: 07-16-2014 End: 04-23-2025 Cigarettes smoked current (pack per day) - Reported 2 [facility] Start: 07-16-2014 End: 09-16-2024 Tobacco use and exposure Smokeless tobacco non-user [facility] Start: 02-01-2023 End: 04-23-2025 Tobacco use panel [facility] National Score (1-10 0), lower number is lower risk 70 [facility] Start: 08-18-2015 Sex Male (finding) [facility] Medical Equipment Procedure Code Equipment Code Equipment Origin al Text Equipment Identifier Dates Insertion, catheter, hemodialysis Double-lumen haemodialysis catheter, implantable [id number] FDA Start: 07-05-2024 EGD, with monitored anesthesia care Oesophageal endoscopic ligator, single-useHaemorrhoi d ligator ()[id number] FDA Start: 08-02-2023 Creation, AV fistula Ligation cl ip, metallic [id number] FDA Start: 07-23-2024 Creation, AV fistula Ligation cl ip, metallic ()[id number] FDA Start: 07-23-2024 [id number] Start: 02-07-2017 End: 06-23-2023 Comment on above: [...] Pen Needle, Diab etic (Easy Comfort Pen [place]) 31 gauge x 1/4 needle Start: 08-17-2017 End: 11-13-2017 Pen Needle, Diab etic (Easy Comfort Pen [place]) 31 gauge x 1/4 needle Start: 11-13-2017 [...] Pen Needle, Diab etic (Easy Comfort Pen [place]) 31 gauge x 1/4 needle Start: 08-17-2017 End: 11-13-2017 Pen Needle, Diab etic (Easy Comfort Pen [place]) 31 gauge x 1/4 needle Start: 11-13-2017 [...] Pen Needle, Diab etic (Easy Comfort Pen [place]) 31 gauge x 1/4 needle Start: 08-17-2017 End: 11-13-2017 Pen Needle, Diab etic (Easy Comfort Pen [place]) 31 gauge x 1/4 needle Start: 11-13-2017 [...] Pen Needle, Diab etic (Easy Comfort Pen [place]) 31 gauge x 1/4 needle Start: 08-17-2017 End: 11-13-2017 Pen Needle, Diab etic (Easy Comfort Pen [place]) 31 gauge x 1/4 needle Start: 11-13-2017 [...] Pen Needle, Diab etic (Easy Comfort Pen [place]) 31 gauge x 1/4 needle Start: 08-17-2017 End: 11-13-2017 Pen Needle, Diab etic (Easy Comfort Pen [place]) 31 gauge x 1/4 needle Start: 11-13-2017 [...] Pen Needle, Diab etic (Easy Comfort Pen [place]) 31 gauge x 1/4 needle Start: 08-17-2017 End: 11-13-2017 Pen Needle, Diab etic (Easy Comfort Pen [place]) 31 gauge x 1/4 needle Start: 11-13-2017 [...] Pen Needle, Diab etic (Easy Comfort Pen [place]) 31 gauge x 1/4 needle Start: 08-17-2017 End: 11-13-2017 Pen Needle, Diab etic (Easy Comfort Pen [place]) 31 gauge x 1/4 needle Start: 11-13-2017 [...] Pen Needle, Diab etic (Easy Comfort Pen [place]) 31 gauge x 1/4 needle Start: 08-17-2017 End: 11-13-2017 Pen Needle, Diab etic (Easy Comfort Pen [place]) 31 gauge x 1/4 needle Start: 11-13-2017 [...] Pen Needle, Diab etic (Easy Comfort Pen [place]) 31 gauge x 1/4 needle Start: 08-17-2017 End: 11-13-2017 Pen Needle, Diab etic (Easy Comfort Pen [place]) 31 gauge x 1/4 needle Start: 11-13-2017 [...] Pen Needle, Diab etic (Easy Comfort Pen [place]) 31 gauge x 1/4 needle Start: 08-17-2017 End: 11-13-2017 Pen Needle, Diab etic (Easy Comfort Pen [place]) 31 gauge x 1/4 needle Start: 11-13-2017 [...] Pen Needle, Diab etic (Easy Comfort Pen [place]) 31 gauge x 1/4 needle Start: 08-17-2017 End: 11-13-2017 Pen Needle, Diab etic (Easy Comfort Pen [place]) 31 gauge x 1/4 needle Start: 11-13-2017 [...] Pen Needle, Diab etic (Easy Comfort Pen [place]) 31 gauge x 1/4 needle Start: 08-17-2017 End: 11-13-2017 Pen Needle, Diab etic (Easy Comfort Pen [place]) 31 gauge x 1/4 needle Start: 11-13-2017 [...] Pen Needle, Diab etic (Easy Comfort Pen [place]) 31 gauge x 1/4 needle Start: 08-17-2017 End: 11-13-2017 Pen Needle, Diab etic (Easy Comfort Pen [place]) 31 gauge x 1/4 needle Start: 11-13-2017 [...] Pen Needle, Diab etic (Easy Comfort Pen [place]) 31 gauge x 1/4 needle Start: 08-17-2017 End: 11-13-2017 Pen Needle, Diab etic (Easy Comfort Pen [place]) 31 gauge x 1/4 needle Start: 11-13-2017 [...] Pen Needle, Diab etic (Easy Comfort Pen [place]) 31 gauge x 1/4 needle Start: 08-17-2017 End: 11-13-2017 Pen Needle, Diab etic (Easy Comfort Pen [place]) 31 gauge x 1/4 needle Start: 11-13-2017 [...] Pen Needle, Diab etic (Easy Comfort Pen [place]) 31 gauge x 1/4 needle Start: 08-17-2017 End: 11-13-2017 Pen Needle, Diab etic (Easy Comfort Pen [place]) 31 gauge x 1/4 needle Start: 11-13-2017 [...] Pen Needle, Diab etic (Easy Comfort Pen [place]) 31 gauge x 1/4 needle Start: 08-17-2017 End: 11-13-2017 Pen Needle, Diab etic (Easy Comfort Pen [place]) 31 gauge x 1/4 needle Start: 11-13-2017 [...] Pen Needle, Diab etic (Easy Comfort Pen [place]) 31 gauge x 1/4 needle Start: 08-17-2017 End: 11-13-2017 Pen Needle, Diab etic (Easy Comfort Pen [place]) 31 gauge x 1/4 needle Start: 11-13-2017 [...] Pen Needle, Diab etic (Easy Comfort Pen [place]) 31 gauge x 1/4 needle Start: 08-17-2017 End: 11-13-2017 Pen Needle, Diab etic (Easy Comfort Pen [place]) 31 gauge x 1/4 needle Start: 11-13-2017 [...] Pen Needle, Diab etic (Comfort Ez Pen [place]) 31 gauge x 5/16 needle Start: 12-18-2024 [...] Pen Needle, Diab etic (Easy Comfort Pen [place]) 31 gauge x 1/4 needle Start: 08-17-2017 End: 11-13-2017 Pen Needle, Diab etic (Easy Comfort Pen [place]) 31 gauge x 1/4 needle Start: 11-13-2017 [...] Pen Needle, Diab etic (Comfort Ez Pen [place]) 31 gauge x 5/16 needle Start: 12-18-2024 [...] Pen Needle, Diab etic (Easy Comfort Pen [place]) 31 gauge x 1/4 needle Start: 08-17-2017 End: 11-13-2017 Pen Needle, Diab etic (Easy Comfort Pen [place]) 31 gauge x 1/4 needle Start: 11-13-2017 [...] Pen Needle, Diab etic (Comfort Ez Pen [place]) 31 gauge x 5/16 needle Start: 12-18-2024 [...] Pen Needle, Diab etic (Easy Comfort Pen [place]) 31 gauge x 1/4 needle Start: 08-17-2017 End: 11-13-2017 Pen Needle, Diab etic (Easy Comfort Pen [place]) 31 gauge x 1/4 needle Start: 11-13-2017 [...] Pen Needle, Diab etic (Comfort Ez Pen [place]) 31 gauge x 5/16 needle Start: 12-18-2024 [...] Pen Needle, Diab etic (Easy Comfort Pen [place]) 31 gauge x 1/4 needle Start: 08-17-2017 End: 11-13-2017 Pen Needle, Diab etic (Easy Comfort Pen [place]) 31 gauge x 1/4 needle Start: 11-13-2017 [...] Pen Needle, Diab etic (Comfort Ez Pen [place]) 31 gauge x 5/16 needle Start: 12-18-2024 [...] Pen Needle, Diab etic (Easy Comfort Pen [place]) 31 gauge x 1/4 needle Start: 08-17-2017 End: 11-13-2017 Pen Needle, Diab etic (Easy Comfort Pen [place]) 31 gauge x 1/4 needle Start: 11-13-2017 [...] Pen Needle, Diab etic (Comfort Ez Pen [place]) 31 gauge x 5/16 needle Start: 12-18-2024 [...] Pen Needle, Diab etic (Easy Comfort Pen [place]) 31 gauge x 1/4 needle Start: 08-17-2017 End: 11-13-2017 Pen Needle, Diab etic (Easy Comfort Pen [place]) 31 gauge x 1/4 needle Start: 11-13-2017 End: 05-01-2018 Syringe With Nee dle (Bd Luer-Jurgen Syringe) 3 mL 25 gauge x 1 syringe Start: 10-04-2018 End: 10-04-2018 Syringe With Nee dle, Safety (Bd Integra Syringe) 3 mL 25 gauge x 1 syringe Start: 09-06-2018 End: 10-04-2018 Blood Sugar Diagnostic (Onetouch Verio Test Strips) strip Start: 10-31-2024 Pen Needle, Diab etic (Comfort Ez Pen [place]) 31 gauge x 5/16 needle Start: 12-18-2024 [...] Pen Needle, Diab etic (Easy Comfort Pen [place]) 31 gauge x 1/4 needle Start: 08-17-2017 End: 11-13-2017 Pen Needle, Diab etic (Easy Comfort Pen [place]) 31 gauge x 1/4 needle Start: 11-13-2017 [...] Facility 12-09-2023 Functional status Up ad jessica [facility] Work Phone: 11-26-2022 Functional status Chair [facility] Work Phone: 03-18-2015 Are you deaf, or do you have serious difficulty hearing No 03/18/2015 1:06 PM Sarah Baum LPN No [facility] 03-18-2015 Are you blind, or do you have serious difficulty seeing, even when wearing glasses No 03/18/2015 1:06 PM Sarah Baum LPN No [facility] 03-18-2015 Do you have serious difficulty walking or climbing stairs No 03/18/2015 1:06 PM Sarah Baum LPN No [facility] 03-18-2015 Do you have difficul ty dressing or bathing No 03/18/2015 1:06 PM Sarah Baum LPN No [facility] 03-18-2015 Because of a physica l, mental, or emotional condition, do you have difficulty doing errands alone such as visiting a physician's office or shopping No 03/18/2015 1:06 PM Sarah Baum LPN No [facility] Mental Status Date Assessment Result Facility 07-02-2024 Cognitive function Voice/Name [facility] Work Phone: 12-18-2023 Cognitive function Level Of Cons ciousness Awake;Alert;Appropriate;Fo davidws Commands [facility] Work Phone: 12-09-2023 Cognitive function Voice/Name [facility] Work Phone: 12-07-2023 Cognitive function Level Of Cons ciousness Awake;Alert;Appropriate;Fo llows Commands [facility] Work Phone: 10-16-2023 Cognitive function Level Of Cons ciousness Awake;Alert;Appropriate;Fo llows Commands [facility] Work Phone: 08-09-2023 Cognitive function Voice/Name [facility] Work Phone: 08-02-2023 Cognitive function Voice/Name [facility] Work Phone: 05-25-2023 Cognitive function Level Of Cons ciousness Awake;Alert;Appropriate [facility] Work Phone: 05-22-2023 Cognitive function Awake;Alert;A ppropriate;Megan [facility] Work Phone: 04-13-2023 Cognitive function Arousable To Voice/Nam e [facility] Work Phone: 02-14-2023 Cognitive function Voice/Name [facility] Work Phone: 11-26-2022 Cognitive function Voice/Name [facility] Work Phone: 11-23-2022 Cognitive function Level Of Cons ciousness Awake;Alert;Appropriate;Dr howard [facility] Work Phone: 11-15-2022 Cognitive function Voice/Name [facility] Work Phone: 02-13-2022 Cognitive function Level Of Cons ciousness Awake [facility] Work Phone: 01-26-2022 Cognitive function Level Of Cons ciousness Awake;Alert;Appropriate;Megan [facility] Work Phone: 11-21-2021 Cognitive function Level Of Cons ciousness Awake;Alert;Appropriate;[facility] Work Phone: 03-18-2015 Because of a physica l, mental, or emotional condition, do you have serious difficulty concentrating, remembering, or making decisions No 03/18/2015 1:06 PM Sarah Baum LPN No [facility] Clinical Notes 06-03-2014 to 06-18-2025 Note Date & Type Note Facility 06-18-2025 Progress note [facility] 06-04-2025 History and physi carl note Note Date/Time June 04, 2025 12:08pm [facility] Medical Records Department [address] [place] [address] History & Physical Exam 06/04/25 1206 MR#: [id number] Acct: [id number] Name: REGINALDO HUFFMAN Rep #:[id number] : 1970 54 From: Kirk Fernandez MD PCP: Dr. Kimberlyn East MD Status:REG SD C Location: [facility] HPI - General HPI Narrative REGINALDO HUFFMAN, is a 54 M who presents with prolonged bleeding from fistula. [facility] Medical History Vascular dialysis catheter in place [...] Unkno wn Rx 01/10 (Comfort EZ Pen [place]) blood sugar diagnostic (True #100 ea 12/30/24 [...] East MD; Dr. Kirk Fernandez MD~ Signed [facility] Work Phone: 1(342) 403-355610-08-2025 History and physical note [facility] Medical Records Department [address] [place] [address] History & Physical Exam 06/04/25 1206 MR#: [id number] Acct: [id number] Name: REGINALDO HUFFMAN Rep #:[id number] : 1970 54 From: Kirk Fernandez MD PCP: Dr. Kimberlyn East MD Status:REG SD C Location: [facility] HPI - General HPI Narrative REGINALDO HUFFMAN, is a 54 M who presents with prolonged bleeding from fistula. [facility] Medical History Vascular dialysis catheter in place [...] Unkno wn Rx 16 (Comfort EZ Pen [place]) blood sugar diagnostic (True #100 ea 12/30/24 [...] East MD; Dr. Kirk Fernandez MD~ Signed [facility]10-08-2025 [facility]08-27-2025 History of Present illness Narrative* [...] advanced fibrosis. Results were reviewed at [facility] with the consensus of the group being [...] Laterality: N/A; Surgeon: Marshal Paris MD; Location: [facility] INTERVENTIONAL RADIOLOGY (VIR) BX TRANSCATHETER N/A 01/27/2025 Laterality: N/A; Surgeon: Marshal Paris MD; Location: [facility] INTERVENTIONAL RADIOLOGY (VIR) INTERPRETATION TRANSCATHETER BX N/A 01/27/2025 Laterality: N/A; Surgeon: Marshal Paris MD; Location: [facility] INTERVENTIONAL RADIOLOGY ([facility]) EGD W/ BX Nov 2013 COLECTOMY PARTIAL [...] HVPG 3 EGD (08/2024) -- Performed in [place], [place] --- Eradicated varices EGD (02/2024) -- Performed in [place], [place] -- EV with stigmata of bleeding [...] remission with his last colonoscopy in 11/2023, [id number]. Of note, his chart mentions a [...] care of Reginaldo Huffman. Lillian Hall DO Manager Of Maintenance of Clinical Medicine Division of Gastroenterology, Hepatology and Nutrition [facility] Pager: [phone] * Nicholas Martinez - 04/23/2025 2:30 PM EDT Patient verified name and date of with this MA documented [facility] Instructions* Patient Instructions* Lillian Hall DO - 04/23/2025 2:30 PM EDT Labs today Talk to your local Architectural Engineer about a scope in 08/2025 Follow up in 1year documented in this encounterOS[facility] Evaluation note * Diagnosis Onset Date Resolution [...] Essential tremor inactive June 30, 2025 9:49am [facility] Work Phone: 1(912) 262-442606-27-2025 Evaluation note* Diagnosis Onset Date Resolution Status Admit Date ESRD (end stage renal diseas e) on dialysis acute February 21, 2025 8:29am AVF (arteriovenous fistula) chronic February 21, 2025 8:29am History of colon cancer deleted [facility] 2024 2:00pm Right carotid bruit acute 2024 7:44am Essential tremor chronic March 292024 7:44am Polyneuropathy chronic March 7:44am Trigeminal neuralgia chronic 2024 7:44am Fatigue noneactive April 21, 7:44am [facility] Work Phone: 1([phone]) [phone] Evaluation note* Diagnosis Onset Date Resolution Status [...] colon cancer deleted A ugust 2024 11:30am [facility] Work Phone: 1(841) 490-345106-27-2025 Evaluation note* Diagnosis Onset Date Resolution Status [...] esophageal lesion chronic May 07, 2025 10:11am [facility] Work Phone: 1([phone]) 560-719406-27-2025 Evaluation note* Diagnosis Onset Date Resolution Status [...] Arteriovenous fistula stenosis acute June 04 8:03am [facility] Work Phone: 1(603) 328-832706-02-2025 Nurse Note* Nursing Notes - Sofia Cardoza [...] car for discharge home per MD order. [facility]06-02-2025 Miscellaneous Notes* Nursing Notes - Sofia Cardoza [...] 10 CSP: 3 HVP [facility] Nurse Note* Nursing Notes - Sofia Cardoza RN - 01/27/2025 3:41 PM EDT Patient skipped his AM dose of 0.1mg clonidine, post procedure now with asymptomatic HTN with SPB 190-200 (patient was this elevated prior to procedure as well. Discussed findings with 0.2mg of clonidine administered with goal systolic BP 170. [facility]06-02-2025 Nurse Note* Nursing Notes - Kimi Sellers [...] Free Hepatic Pressure: 10 CSP: 3 HVP [facility]06-02-2025 Hospital Discharge instructions* Discharge Instructions* Lizbet Vannesa Stapleton, BUSINESS PROJECT MANAGER-SAWMILL PRODUCTION WORKER - 01/27/2025 12:01 PM EDT Home Care [...] or on Weekends, please call the Hospital Health Commissioner at [phone] and ask them for the Interventional Boiler Shop Mechanic On-Call documented in [facility] encounterMary [facility]06[facility] History and physical note* WILLIAM Carmen - [...] on . K 5.6 today. Lizbet Stapleton APRN-SAWMILL PRODUCTION WORKER 01/27/2025 11:54 AM Cosigned by Marshal Paris MD at 01/27/2025 12:25 PM EDT [facility] Work Phone: 1(801) 795-478106-02-2025 History and physical note* WILLIAM Carmen - [...] 12:25 PM EDT [facility] in [facility] History of Present illness Narrative* Lillian Hall, [...] EV hemorrhage in Summer 2023 s/p EBL ([place], [place]) in the setting of hepatosplenomegaly on [...] study. Procedures: EGD (08/2024) -- Performed in [place], [place] --- Eradicated varices EGD (02/2024) -- Performed in [place], [place] -- EV with stigmata of bleeding s/p EBL Assessment and Plan Reginaldo Huffman is a 54 y.o. male with a past medical history of esophageal varices complicated by EV hemorrhage in Summer 2023 s/p EBL ([place], [place]) in the setting of hepatosplenomegaly on [...] care of Reginaldo Huffman. Lillian Hall DO Manager Of Maintenance of Clinical Medicine Division of Gastroenterology, Hepatology and Nutrition [facility] Pager: [phone] * Coretta Snyder LPN - 12/25/2024 3:00 PM EDT Patient verified name and date of with this EXPORT SALES ASSISTANT. Pt. Is accompanied by his mother today. documented in this encounterOS[facility]04-30-[facility]25 Instructions* Patient Instructions* Lillian Hall DO - 12/25/2024 3:00 PM EDT Complete labs today Schedule CT scan You'll be called to schedule liver biopsy Follow up in 4months with me documented in [facility]U [facility] History of Present illness Narrative* Dara Weaver [...] Radiology for port removal. [facility] Evaluation note * Diagnosis Onset Date Resolution [...] (arteriovenous fistula) chronic February 21, 2025 8:29am [facility] Work Phone: 1([phone]) 153-154303-26-2025 Telephone encounter Note* Telephone Encounter - Lurdes Haynes RN - 11/20/2024 7:52 AM EDT Called patient to see if he was planning on coming to today's evaluation starting at 8a. I had to leave a . Lurdes Haynes RN November 20, 2024 7:52 AM [facility]03-26-2025 Miscellaneous Notes* Telephone Encounter - Lurdes Haynes RN - 11/20/2024 7:52 AM EDT Called patient to see if he was planning on coming to today's evaluation starting at 8a. I had to leave a VM. Lurdes Haynes RN November 20, 2024 7:52 AM [facility] encounter[facility] History of Present illness Narrative* MARIXA Cueva - 11/08/2024 2:00 PM EDT Transplant Recipient Psychosocial Evaluation Demographics: Patient is a 54 y.o., White, Single, male, who presented for a kidney transplant evaluation. Patient was AOx4. Transplant Hydroelectric Operator role/function was explained and reviewed. The patient was informed that the results of this assessment will be shared with the referring provider and the transplant team. The patient verbalized understanding of this information. The [facility] psychosocial assessment consent form has been explained to patient and has been signed. Patient is completing this evaluation with mother Louis Huffman in the Outpatient setting. Hydroelectric Operator educated patient on the benefits of completing/filing advanced directives and resources were offered and questions regarding same were answered by this criminal justice social worker. Patient identifies with NONE yarsanism. Patient confirms being a [place] Citizen. Patient's primary language is Finnish. Patient denies potential donors. Donor cards and [...] diabetes. Patient is on hemodialysis at [facility], attends [employer], and [...] of calendar.Patient educated on benefits of utilizing [employer] and given information on how to obtain [...] that his mom owns; he lives in [place], [place] ([place] hours from [facility]). Patient resides [...] must have secondary caregiver complete interview with criminal justice social worker. He confirms being comfortable asking for [...] pancreatitis, and hypertension. He has access to [employer] in regards to financial means pre/post-transplant. Patient [...] hospitalizations. Patient reports he was hospitalized at [facility] in 1999 after attempting suicide with a [...] Amount: 1/5 of vodka or other liquor ([id number]) Type: liquor History of DUIs: no History [...] support & support to complete interview with criminal justice social worker Complete education with support Continue mental health treatment AZAR Cueva, RAHEEM, [facility] Outpatient Transplant Social Work [facility] The above assessment was conducted by means of corroborating information from patient's chart review, support person(s) report, multiple evidence based clinical tools and a modified version of the Kike Integrated Psychosocial Assessment for Transplant (SIPAT) and the SIPAT-General TXP Long FormSabino et al, 2008; Sabino et al, Psychosomatics 2012. documented in this encounterOSU Community [facility] Hospital03-14-2025 History of Present illness Narrative* RYANNE Perez [...] and initiated on dialysis in June 2024. [place] kidney biopsy was not done. Notable PMH: [...] his mother. 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 Single; never ; [...] transplantation but will be reviewed by our dietary clerk. 4. 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 These are in remission right now. 5. He attended our transplant education session and seems to understand the risks and benefits of kidney transplantation. 6. He will be seen by our senior medical transcriptionist today for a detailed pyschosocial evaluation as [...] any questions. Sincerely, Tyrese Lange MD Clinical publishing manager Transplant Mobile Qa Tester documented in this encounterOSU Community [facility] Hospital03-14-2025 Instructions* Patient Instructions* Oswald Coates RN - [...] is finished. AFTER CLINIC VISIT Transplant Psychology: [phone] Opt 1 If Transplant Social Work refers you to Transplant Psychology, before you leave the clinic, please stop at the waterfront director, and schedule this appointment. Your support person will need to be present for this appointment. The following orders have been placed. To schedule, please call [phone]. Echocardiogram Cardiac Stress Test CT Abdominal/Pelvis angiogram Please work with your Primary Care Provider (PCP) or broodmare foreman to schedule these tests when appropriate and contact your Veneer Grader upon completion. Cancer Screenings: Colonoscopy (Age 50>) Dental Clearance: Please work with your dentist to schedule an exam to fill out and fax the Pre- Transplant Dental Form to the number listed on it. Financial Assessment: If you have not completed a financial assessment, one will be sent to you in [email or web address] or emailed to you. Please call your student financial services counselor to complete your financial assessment or with any questions. Princess Mccollum [phone]. Today in clinic you were seen by RYANNE Contreras and your Pre Veneer Grader Oswald Coates. It is the expectation of [...] be sent by either your PCP or broodmare foreman. [facility] transplant will not be able to [...] it. We offer the vaccine at the [facility] on the ground floor, or you can contact a local health department. You may also speak to your Primary Care Provider (PCP) or Mobile Qa Tester to get vaccinated. documented in this encounterOSU [facility] Hospital03-05-2025 [facility]03-05-[facility] Evaluation note* Diagnosis Onset Date [...] (arteriovenous fistula) chronic December 20, 2024 9:17am Clarita Qufenqi Work Phone: [phone]) [phone] NoteHNO ID: [id number] Author: DIONE LOVE RN Service: ? Author Type: Registered Nurse Type: Progress Notes Filed: 09/18/2024 08:56 Note Text: Kidney PreTransplant seat scooper machine Referring physician:Dialysis Center Neprhologist: Radha Kelley Referral [...] site. - [facility] History of Present illness Narrative* Dione Love RN - 09/17/2024 3:39 PM EST Kidney PreTransplant seat scooper machine Referring physician:Dialysis Center Neprhologist: Radha Kelley Referral [...] are negative for neoplasm documented in this encounterUniversity Hospitals Elyria [facility] Center01-15-2025 Telephone encounter Note * Telephone Encounter - Kenneth Lake - 09/11/2024 12:20 PM EST KIDNEY TRANSPLANT REFERRAL (enter above which organ the patient needs; Kidney, Pancreas or Kidney/Pancreas) Is this referral for a Safety Net or HIV Patient? No (Safety Net = Pt needing an additional transplant within 12 months for any organ) Reginaldo Huffman [phone] Spoke with: Patient Best Contact FOR PANCREAS AND KIDNEY/PANCREAS TRANSPLANT AGE 55+ is a HARD STOP If patient is NOT on Dialysis & has a GFR >21 is a HARD STOP 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 No If the patient has Medicare A/B [...] Light activity COPD/Emphysema/Other pulmonary problem: No Dialysis: [facility] Days: Dialysis start date: 05/12/2024 If not [...] [facility] Hx of Hypertension? Yes Hx of GA/Heart Attack? No Hx of TIA/CVA or Stroke? No Are you on a blood thinner? No If YES which medication are you on? N/A Have you had a CABG or STENTS? No Have you ever had a Stress Test? [facility]. [address] [place] [address]. [phone]. 2019 Have you ever had an Echo? No Have you ever had a Cardiac Cath? No CT Abdomen/Pelvis: Yes. If yes, date and location: 4 month ago. [facility]. [address] [place] [address]. . Mammogram: No Pap Test: No Colonoscopy: [facility]. [address] [place] [address]. [phone]. 2019. 4month ago. Hx of Lupus? No Sickle Cell Trait or Disease: No Have you had any prior surgeries? yes Colon cancer 2013 Do you have a potential living donor? No MyCHART Is the patient signed up for Beeplt? No If YES - send patient the Kidney/Pancreas New Referral Message. If NO - obtain their email address AND send [employer]hart sign up information: email address: [email or web address] Is the patient okay with having a Virtual Appt: No ( patient does not have a computer) What facilities do we need outside records from: [facility]. [address] [place] [address]. [phone] Have records been retrieved from Care Everywhere: Yes. Have records been requested from [facility]? Yes Additional Comments about patient/evaluation: No Route the referral to the Kidney Txp manufactured buildings supervisor, Dione Love. Kenneth [facility]01-15-2025 Miscellaneous Notes* Telephone Encounter - Kenneth Lake - 09/11/2024 12:20 PM EST KIDNEY TRANSPLANT REFERRAL (enter above which organ the patient needs; Kidney, Pancreas or Kidney/Pancreas) Is this referral for a Safety Net or HIV Patient? No (Safety Net = Pt needing an additional transplant within 12 months for any organ) Reginaldo Huffman [phone] Spoke with: Patient Best Contact FOR PANCREAS AND KIDNEY/PANCREAS TRANSPLANT AGE 55+ is a HARD STOP If patient is NOT on Dialysis & has a GFR >21 is a HARD STOP REFERRING TINNING EQUIPMENT TENDER / PHYSICIAN: Radha Nayak Have you ever been evaluated for kidney/pancreas transplant? No If YES, where? N/A Status of listing/evaluation: N/A Have you had a previous transplant? No Have you had one or both kidneys removed: No Reason: N/A OUT OF STATE MEDICAID PATIENTS: APC - run the Medicaid through [facility] to determine if the coverage is Out [...] for transplant to your ([place]) Medicaid case work aide? No If the patient has Medicare A/B [...] Light activity COPD/Emphysema/Other pulmonary problem: No Dialysis: [facility] : Dialysis start date: 05/12/2024 If not [...] [facility] Hx of Hypertension? Yes Hx of GA/Heart Attack? No Hx of TIA/CVA or Stroke? No Are you on a blood thinner? No If YES which medication are you on? N/A Have you had a CABG or STENTS? No Have you ever had a Stress Test? [facility]. [address] [place] [address]. [phone]. 2019 Have you ever had an Echo? No Have you ever had a Cardiac Cath? No CT Abdomen/Pelvis: Yes. If yes, date and location: 4 month ago. [facility]. [address] [place] [address]. . Mammogram: No Pap Test: No Colonoscopy: [facility]. [address] [place] [address]. [phone]. 2019. 4month ago. Hx of Lupus? No Sickle Cell Trait or Disease: No Have you had any prior surgeries? yes Colon cancer 2013 Do you have a potential living donor? No MyCHART Is the patient signed up for Lingu[employer].ly? No If YES - send patient the Kidney/Pancreas New Referral Message. If NO - obtain their email address AND send [employer]hart sign up information: email address: [email or web address] Is the patient okay with having a Virtual Appt: No ( patient does not have a computer) What facilities do we need outside records from: [facility]. [address] [place] [address]. [phone]. 2019 Have records been retrieved from Care Everywhere: Yes. Have records been requested from [facility]-Health? Yes Additional Comments about patient/evaluation: No Route the referral to the Kidney Txp manufactured buildings supervisor, Dione Love. Kenneth Lake documented in this encounterUniversity Hospitals Elyria Medical Center11-26-2024 [facility]11-13-2024 [facility]04-12-2024 Progress note Author Alfredo Ag [facility] December 08, 2023 4:13pm Note Date/Time December 08, 2023 4:1 3pm [facility] Medical Records Department [address] [place] [address] Progress Note - Hospitalist 12/08/23 1608 MR#: [id number] Acct: [id number] Name: REGINALDO HUFFMAN Rep #:[id number] : 1970 53 From: Alfredo Ag DO PCP: Luciana Garcia DO Status:ADM I N Location: [place] [address] Reason for Visit Reason for Visit: Diagnoses [...] % (Auto) 61.2, Lymph % (Auto) 31.0, [place] % (Auto) 5.3, Eos % (Auto) 1.3, [...] % (Auto) 68.3, Lymph % (Auto) 25.6, [place] % (Auto) 3.7, Eos % (Auto) 1.1, [...] 35 minutes Charges/Coding Visit Charges Inpatient E&M: 21556 Subs Hosp L2 12/08/23 1613 <Electronically signed by Alfredo Ag DO> Cosigner Signature (if applicable): CC: ~ Signed [facility] Work Phone: 1(793) 983-677604-12-2024 History and physical note Author Landry James [facility] December 08, 2023 6:11am Note Date/Time December 07, 2023 8:5 4pm [facility] Medical Records Department [address] [place] [address] H&P Exam - Hospitalist 12/07/232039 MR#: [id number] Acct: [id number] Name: REGINALDO HUFFMAN Rep #:[id number] : 1970 53 From: Landry Brunner DO PCP: Luciana Garcia DO Status:ADM I N Location: [place] [address] HPI - General General Date of Admission: [...] of the nephrology service who presents to [facility] ER complaining of worsening kidney function, hyperkalemia [...] is expectedto be greater than 48 hours. [facility] Medical History Arthritis Asthma Carpal tunnel syndrome [...] % (Auto) 61.2, Lymph % (Auto) 31.0, [place] % (Auto) 5.3, Eos % (Auto) 1.3, [...] 55 minutes. Charges/Coding Visit Charges Inpatient E&M: 09318 Init Hosp L2 12/08/23 0611 <Electronically signed by Landry Barber DO> Cosigner Signature (if applicable): CC: Dr. Landry Barber DO; Luciana Garcia DO~ Signed [facility] Work Phone: 1(228) 736-339104-12-2024 Discharge summary Author Kirk Schneider [facility] December 08, 2023 1:32am Note Date/Time December 07, 2023 7:0 3pm [facility] Medical Records Department [address] [place] [address] Emergency Department Summary 12/07/23 MR#: [id number] Acct: [id number] Name: REGINALDO HUFFMAN Rep #:[id number] : 1970 53 From: Fransisco VALENTINE PCP: Luciana Garcia DO Status:ADM I N Location: [place] [address] HPI <SERGE Salazar - Last Filed: 12/07/23 [...] been well-maintained. He is here for evaluation [facility] <SERGE Salazar - Last Filed: 12/07/23 20:26> [facility] Medical History Arthritis Asthma Carpal tunnel syndrome [...] Oxygen Delivery Method Room Air Room Air [facility] <SERGE Salazar - Last Filed: 12/07/23 20:26> [facility] Lab Data Labs: Laboratory Results - last 24 hr 12/07/23 19:02 WBC 5.3 RBC 2.82 L Hgb 8.6 L Hct 25.2 L MCV 89.4 MCH 30.5 MCHC 34.1 RDW Std Deviation 43.9 RDW Coeff of Ever 13.5 Plt Count 202 MPV 10.5 Immature Gran % (Auto) 0.600 Neut % (Auto) 61.2 Lymph % (Auto) 31.0 Chilton % (Auto) 5.3 Eos % (Auto) 1.3 [...] Normal sinus rhythm, rate of 74 bpm, CA interval 154 ms, QRS duration 96 ms, [...] Schneider, DO - Last Filed: 12/07/23 20:30> [facility] Narrative Medical decision making narrative: I have [...] % (Auto) 61.2 Lymph % (Auto) 31.0 Chilton % (Auto) 5.3 Eos % (Auto) 1.3 [...] chronic illness Disposition Disposition: Acute Care Hospital [facility] What to do if you have Problems For any increased pain, shortness of breath, bleeding, nausea or vomiting, chestpain, or any unexpected problems, contact your Primary Care Provider. Call [facility] ([phone]) or report to the closest Emergency Room. Call 911 if necessary. 12/07/232025 <Electronically signed by Fransisco VALENTINE> Cosigner Signature (if applicable): 12/08/23131 <Electronically signed by Kirk Schneider DO> CC: Luciana Garcia, ~ Signed [facility] Work Phone: 1(320) 613-806312-06-2023 History and physical note Author Aquiles Warren [facility] August 02, 2023 6:27am Note Date/Time August 02, 2023 6 :27am [facility] Medical Records Department [address] [place] [address] History & Physical Exam 08/02/23625 MR#: [id number] Acct: [id number] Name: REGINALDO HUFFMAN Rep #:[id number] : 1970 52 From: Aquiles Warren DO PCP: Luciana Garcia DO Status:REG S DC Location: [place] [address] History and Physical Date of Admission: 08/02/23 REGINALDO HUFFMAN, is a 52 M who presents to the office today for Prior imaging: ? CT abd/pel 9..19 stable hepatosplenomegaly; LUQ varices; renal cysts; postsurgical changes of right hemicolectomy. ? CT abd/pel 3. normal liver, gallbladder; mild splenomegaly with adjacent calcified structure, ?prior inflammation; LUQ varicosities stable,r/t splenic vein thrombosis, stable. *[facility] hospitalization 3.-4..23. ED presentation for syncopal event [...] lesion of esophagus; declines colonoscopy; continue atenolol. [facility] hematology for anemia with CKD, colon cancer [...] Judgment: judgment good Quality Reporting Tobacco Screening ([facility]) Smoking Status: Former smoker Assessment and [...] Luciana Garcia DO; Aquiles Warren DO~ Signed [facility] Work Phone: [phone]) 275-911112-06-2023 Procedure [facility] 08-02-2023 Procedure [facility]10-27-2023 History of Present illness Narrative* Candy Penn APRN.[employer]WMILL PRODUCTION WORKER - 06/23/2023 3:15 PM EDT Reason for [...] to start care with Dr. Griffin with [place] being closer to his home. Has an appt set for next month Also reports he will start with a new primary care provider He is seeing nephrology in [place] ([facility] Under the care of hem/onc for colon [...] a day prn. 30 tablet 5 omega 1-utg-tku-fish oil 300-400-1,000 mg cap Take 1 capsule [...] FOR INSULIN INJECTIONS 800 Each 0 Insulin [place], Disposable, (PEN NEEDLES) 31 gauge x 1/4 [...] LITE STRIPS) test strip, alcohol swabs, Insulin [place], Disposable, (PEN NEEDLES) 31 gauge x 1/4 [...] Type 1 diabetes mellitus with diabetic polyneuropathy ([facility]) Comment: Glycemic control is above [...] LITE STRIPS) test strip, alcohol swabs, Insulin [place], Disposable, (PEN NEEDLES) 31 gauge x 1/4 [...] unspecified whether stage 3a or 3b CKD ([facility]) Comment: Glycemic control is above [...] LITE STRIPS) test strip, alcohol swabs, Insulin [place], Disposable, (PEN NEEDLES) 31 gauge x 1/4 [...] LITE STRIPS) test strip, alcohol swabs, Insulin [place], Disposable, (PEN NEEDLES) 31 gauge x 1/4 [...] Level: 4 - Moderate Candy Penn, MSN, BUSINESS PROJECT MANAGER, GEOLOGICAL TECHNICIAN-C, CDE Endocrinology [facility]/[address], [facility] [address] [place] [address] Fax: documented in this encounterUniversity Hospitals Elyria Medical Center10-27-2023 Evaluation note* Diagnosis Type 1 diabetes mellitus with stage 3 chronic kidney disease, unspecified whether stage 3a or 3b CKD (HCC) 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, not stated as uncontrolled Hypogonadism in male Mixed hyperlipidemia Essential hypertension Unspecified essential hypertension Obesity, Class I, BMI 30-34.9 Obesity, unspecified documented in this encounter [facility]10-02-2023 Miscellaneous Notes* Telephone Encounter - Cathi Campbell [...] and advise. Cathi Campbell documented in this encounterUniversity Hospitals Elyria Medical Center06-15-2023 Miscellaneous Notes* Telephone Encounter - Candy Penn APRN.CNP - 02/09/2023 12:30 PM EDT Reviewed. Mild NPDR , no mac edema bilaterally * Telephone Encounter - Nicole Cerda MA - 02/09/2023 8:39 AM EDT Received Eye Exam Report from [facility]. Placed in provider's inbox for review. Route to [place] for scanning. documented in this encounterUniversity Hospitals Elyria Medical Center06-07-2023 History of Present illness Narrative* Chriss Cruz [...] placed. Patient declined to schedule. He states [employer] has similar program he uses. Due for [...] by mouth at bedtime as needed. Insulin [place], Disposable, (PEN NEEDLES) 31 gauge x 08/31 [...] to 5 tabs a day prn. omega 7-agw-snv-fish oil 300-400-1,000 mg cap Take 1 capsule [...] Follow closely. Chriss Cruz documented in this encounterUniversity Hospitals Elyria Medical Center05-04-2023 History of Present illness Narrative* Chriss Cruz MD - 12/29/2022 9:36 AM EDT Patient presents with: Follow Up HPI: Patient presents today for office visit for follow up. Was admitted into [facility] 11/26-11/28 Anemia and syncope Feeling pretty [...] set him up with lele Hernandez in [place], although he already sees Lele in the [...] Abs Lymph 1.00 - 4.00 k/uL 1.57 Chilton% % 7.1 Abs Chilton <0.87 k/uL 0.39 Eosin% % 1.3 Abs [...] by mouth at bedtime as needed. Insulin [place], Disposable, (PEN NEEDLES) 31 gauge x 1/4 [...] to 5 tabs a day prn. omega 5-dmk-jzy-fish oil 300-400-1,000 mg cap Take 1 capsule [...] EEG Trigeminal neuralgia Type 1 diabetes mellitus ([facility]) 2002 Dr Zepeda. from pancreatitis. [...] TABLET Chriss Cruz MD documented in this encounterUniversity Hospitals Elyria Medical Center04-14-2023 Miscellaneous Notes* Telephone Encounter - Linda Baxter Ma - 12/09/2022 9:14 AM EDT Patient was made aware of the results. Patient verbalizes understanding. Linda Baxter Ma * Telephone Encounter - Chriss Cruz MD - 12/09/2022 8:00 AM EDT Labs are showing anemia is stable. Kidney functions remains down. Make sure keeps continuing to follow with nephrology. documented in this encounterUniversity Hospitals Elyria Medical Center04-07-2023 Miscellaneous Notes* Telephone Encounter - Sraah Howard LPN - 12/02/2022 9:47 AM EDT Patient notified and verbalizes understanding. * Telephone Encounter - Chriss Cruz MD - 12/02/2022 9:39 AM EDT His repeat thyroid looks better. Keep his follow up with lele. His kidney function is worse than it was before. His anemia is stable. Recheck bmp in one week along with cbc documented in this encounterUniversity Hospitals Elyria Medical Center04-07-2023 Evaluation note* Diagnosis Gastrointestinal hemorrhage, unspecified gastrointestinal hemorrhage type- Primary Stage 3a chronic kidney disease (HCC) documented in this encounter [facility]04-06-2023 History of Present illness Narrative* Chriss Cruz MD - 12/01/2022 10:31 AM EDT Patient presents with: Transition Of Care Hospital F/U: Patient reports he will be getting hemoglobin injection every Monday until otherwisedecided. HPI: Patient presents today for office visit for TCM TCM call on 11/28 Admitted to [facility] 11/26-11/28/22. DX: anemia, syncope. Was brought [...] set him up with lele Hernandez in [place], although he already sees Lele in the [...] Inject 40 Units subcutaneously twice daily.) Insulin [place], Disposable, (PEN NEEDLES) 31 gauge x 1/4 [...] (Patient not taking: Reported on 12/01/2022) omega 1-fqj-per-fish oil 300-400-1,000 mg cap Take 1 capsule [...] DIFF Chriss Cruz MD documented in this encounterUniversity Hospitals Elyria Medical Center04-03-2023 History of Present illness Narrative* Lady Cruz - 11/28/2022 9:55 AM EDT TRANSITION CARE MANAGEMENT (TCM) INITIAL CONTACT [employer] Forming Equipment Operator Outreach Provider Action/FYI: Initial contact with patient post discharge, spoke to patient. Patient identified by name and . TRANSITION CARE MANAGEMENT INITIAL OUTREACH DOCUMENTATION: Date of Outreach: 11/28/2022 Date of Discharge 11/26/2022 Some recent data might be hidden SUMMARY: -Pt discharged from [facility] on 11/26/22. -Admitted for: Syncope Do [...] for provider to review documented in this encounterUniversity Hospitals Elyria Medical Center04-01-[address] Renae [facility] November 26, 2022 1:45pm Note Date/Time November 26, 2022 1:45 pm [facility] Medical Records Department [address] [place] [address] Instructions for Home/Discharge Instructions 11/26/22 1344 MR#: [id number] Acct: [id number] Name: REGINALDO HUFFMAN Rep #:[id number] : [...] to schedule your hospital follow-up appointment (ph. [phone]) -It is advised that you follow-up with [...] to further review results once available. The [place] patient portal will also have your lab results as they become available, would recommend signing up for this and utilizing this as it will be helpful at follow-up appointments if you are primary care physician does not have access to the [facility] medical record. -Would recommend stopping your [...] to schedule your hospital follow-up appointment (ph. [phone])) Chandana Griffin MD [Med Staff - Courtesy [...] CC: Dr. Chriss Cruz MD ~ Signed [facility] Work Phone: 1(171) 196-455104-01-[address] Renae [facility] November 26, 2022 4:09pm Note Date/Time November 26, 2022 1:45 pm [facility] Medical Records Department [address] [place] [address] Discharge Summary 11/26/22 1345 MR#: [id number] Acct: [id number] Name: REGINALDO HUFFMAN Rep #:[id number] : 1970 52 From: Maria Antonia Renae MD PCP: Dr. Chriss Cruz MD Status:ADM I N Location: [address] Providers Date of Admission: 11/23/22 [...] radiation in 2013, hypertension who presented to [facility] 11/23/2022 after syncopal episode after he [...] to schedule your hospital follow-up appointment (ph. [phone]) -It is advised that you follow-up with [...] to further review results once available.? The [place] patient portal will also have your lab results as they become available, would recommend signing up for this and utilizing this as it will be helpful at follow-up appointments if you are primary care physician does not have access to the [facility] medical record. -Would recommend stopping your [...] % (Auto) 60.6, Lymph % (Auto) 30.7, Chilton % (Auto) 6.0, Eos % (Auto) 1.5, [...] focal liver lesion. 3. Cholelithiasis. Electronically Signed: Nasir Jolly MD at 12:11 EDT , D/C [...] to schedule your hospital follow-up appointment (ph. [phone]) -It is advised that you follow-up with [...] to further review results once available. The [place] patient portal will also have your lab results as they become available, would recommend signing up for this and utilizing this as it will be helpful at follow-up appointments if you are primary care physician does not have access to the [facility] medical record. -Would recommend stopping your [...] to schedule your hospital follow-up appointment (ph. [phone])) Chandana Griffin MD [Med Staff - Courtesy Staff] - See Referral Note (Please call to establish care with endocrinology upon discharge for further work-up) Chriss Cruz MD [Primary Care Provider] - Within 1 Week Disposition Disposition (needs filled in before D/C Order can be placed): Home, Self Care Charges/Coding Visit Charges Inpatient E&M: 20251 Disch Hosp >30min 11/26/22 1609 <Electronically signed by Maria Antonia Renae MD> Cosigner Signature (if applicable): CC: Dr. Maria Antonia Renae MD; Dr. Chriss Cruz MD~ Signed [facility] Work Phone: 1(844) 570-306604-01-2023 Progress note Author Aquiles Warren [facility] November 26, 2022 11:41am Note Date/Time November 26, 2022 11:3 8am [facility] Medical Records Department [address] [place] [address] Progress Note 11/26/22 1137 MR#: [id number] Acct: [id number] Name: REGINALDO HUFFMAN Rep #:[id number] : 1970 52 From: Aquiles Warren DO PCP: Dr. Chriss Cruz MD Status:ADM I N Location: [place] [address] Subjective Subjective Patient does not have any [...] % (Auto) 60.6, Lymph % (Auto) 30.7, Chilton % (Auto) 6.0, Eos % (Auto) 1.5, [...] an outpatient. Charges/Coding Visit Charges Inpatient E&M: 73539 Subs Hosp L3 11/26/22 1141 <Electronically signed by Aquiles Friend DO> Aquiles Friend DO Cosigner Signature (if applicable): CC: ~ Signed [facility] Work Phone: 1(714) 114-294303-31-[address] Renae [facility] November 25, 2022 9:00am Note Date/Time November 25, 2022 8:5 5am [facility] Medical Records Department [address] [place] [address] Progress Note - Hospitalist 11/25/22 0844 MR#: [id number] Acct: [id number] Name: REGINALDO HUFFMAN Rep #:[id number] : 1970 52 From: Maria Antonia Renae MD PCP: Dr. Chriss Cruz MD Status:ADM I N Location: [place] [address] Reason for Visit Reason for Visit: Diagnoses [...] % (Auto) 66.0, Lymph % (Auto) 26.4, [place]ilton % (Auto) 3.9, Eos % (Auto) 1.7, [...] documentation, 30minutes Charges/Coding Visit Charges Inpatient E&M: 36701 Subs Hosp L2 11/25/22 0900 <Electronically signed by Maria Antonia Renae MD> Cosigner Signature (if applicable): CC: ~ Signed [facility] Work Phone: 1(375) 920-929803-30-2023 Consult note Author Aquiles Warren [facility] November 24, 2022 6:01pm Note Date/Time November 24, 2022 5:5 6pm [facility] Medical Records Department [address] [place] [address] Consultation - GI 11/23/22 2300 MR#: [id number] Acct: [id number] Name: REGINALDO HUFFMAN Rep #:[id number] : 1970 52 From: Aquiles Warren DO PCP: Dr. Chriss Cruz MD Status:ADM I N Location: [place] [address] HPI Consult Data Date of Consult: 11/23/22 [...] on April 21, 2016 which subsequently resolved.? [facility] Medical History Alcohol abuse Anemia Asthma Cancer [...] % (Auto) 59.0, Lymph % (Auto) 30.8, [place] % (Auto) 6.4, Eos % (Auto) 1.0, [...] of 3. Charges/Coding Visit Charges Inpatient E&M: 13870 Init Hosp L3 11/24/22 1801 <Electronically signed by Aquiles Friend DO> Cosigner Signature (if applicable): CC: Dr. Chriss Cruz MD~ Signed [facility] Work Phone: 1(660) 196-402803-30-2023 History and physical note Author Dr. Renae [facility] November 24, 2022 12:35pm Note Date/Time November 23, 2022 1:1 4pm [facility] Medical Records Department [address] [place] [address] H&P Exam - Hospitalist 11/23/22 1307 MR#: [id number] Acct: [id number] Name: REGINALDO HUFFMAN Rep #:[id number] : 1970 52 From: Maria Antonia Renae MD PCP: Dr. Chriss Cruz MD Status:ADM I N Location: [place] [address] HPI - General General Date of Admission: 11/23/22 Date of Service: 11/23/22 HPI Narrative REGINALDO HUFFMAN, is a 52 M with history of trigeminal neuralgia, depression, vertigo, type 2 diabetes mellitus, colon cancer status post resection chemo radiation in 2013, hypertension who presented to [facility] 11/23/2022 after syncopal episode. In the ED he was found to have a hemoglobin of 6.3 and hospitalist consulted for admission. He reportedly has a history of anemia and recently started to shots to help his hemoglobin a week ago through Dr. 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 He had been in his usual health [...] had any GI upset before or after. [facility] Medical History Alcohol abuse Anemia Asthma Cancer [...] % (Auto) 65.2, Lymph % (Auto) 25.6, [place] % (Auto) 6.0, Eos % (Auto) 1.5, [...] documentation, 60minutes Charges/Coding Visit Charges Inpatient E&M: 02945 Init Hosp L2 11/23/22 1314 <Electronically signed [...] MD; Dr. Chriss Cruz MD ~* Signed [facility] Work Phone: 1(232) 341-205903-30-2023 Procedure [facility] 11-24-2022 Procedure [facility]03-30-[address] Renae [facility] November 24, 2022 10:14am Note Date/Time November 24, 2022 10: 14am [facility] Medical Records Department [address] [place] [address] Telemedicine Confirmation Receipt 11/24/22 MR#: [id number] Acct: [id number] Name: REGINALDO HUFFMAN Rep #:[id number] : 1970 52 From: Maria Antonia Renae MD PCP: Dr. Chriss Cruz MD Status:ADM I N [facility] Telemed has confirmed receipt of a request for visit. This document confirms receipt of the order initiating the consult. To find the results of the consultation, please view the patient's reports for the scanned Telemed Consult. [facility] Work Phone: 1(825) 597-405503-30-[address] Renae [facility] November 24, 2022 9:31am Note Date/Time November 24, 2022 9:3 1am [facility] Medical Records Department [address] [place] [address] Progress Note - Hospitalist 11/24/22928 MR#: [id number] Acct: [id number] Name: REGINALDO HUFFMAN Rep #:[id number] : 1970 52 From: Maria Antonia Renae MD PCP: Dr. Chriss Cruz MD Status:ADM I N Location: [place] [address] Reason for Visit Reason for Visit: Diagnoses [...] % (Auto) 65.2, Lymph % (Auto) 25.6, Chilton % (Auto) 6.0, Eos % (Auto) 1.5, [...] % (Auto) 59.0, Lymph % (Auto) 30.8, [place]ilton % (Auto) 6.4, Eos % (Auto) 1.0, [...] and Tegretol #DVT ppx: SCDs Maria Antonia Reane MD Time spent in the patient's overall evaluation,decision-making process, review of diagnostic data, adjustment of management, discussion with other providers, nursing nursing and ancillary staff involved in patient's care documentation, 30minutes Charges/Coding Visit Charges Inpatient E&M: 94298 Subs Hosp L2 11/24/22 0931 <Electronically signed by Maria Antonia Renae MD> Cosigner Signature (if applicable): CC: ~ Signed [facility] Work Phone: 1(696) 950-992603-29-[address] Hogan [facility] November 23, 2022 12:55pm Note Date/Time November 23, 2022 11: 37am [facility] Medical Records Department [address] [place] [address] Emergency Department Summary 11/23/22 MR#: [id number] Acct: [id number] Name: REGINALDO HUFFMAN Rep #:[id number] : 1970 52 From: Galdino Hogan MD PCP: Dr. Chriss Cruz MD Status:ADM I NO Location: [place] [address] HPI History of Present Illness Chief Complaint: [...] all 4 extremities. 5 out of 5 leadership recruiter strength. Dorsi plantarflexion intact. Normal range of [...] % (Auto) 65.2 Lymph % (Auto) 25.6 [place]ilton % (Auto) 6.0 Eos % (Auto) 1.5 [...] rate of 72 no acute signs of GA or ischemia. No change from prior EKG from October of last year. Prior EKG tracings: available for review Prior: Unchanged Discharge Plan Dx/Rx/DC Orders Clinical Impression: Syncope, Anemia, History of diabetes mellitus Disposition Disposition: Acute Care Hospital [facility] What to do if you have Problems For any increased pain, shortness of breath, bleeding, nausea or vomiting, chestpain, or any unexpected problems, contact your Primary Care Provider. Call [facility] ([phone]) or report to the closest Emergency Room. Call 911 if necessary. 11/23/22 1255 <Electronically signed by Galdino Hogan MD> Cosigner Signature (if applicable): CC: Dr. Chriss Cruz MD ~ Signed [facility] Work Phone: [phone]) 826-116602-09-2023 History of Present illness Narrative* Chriss Cruz [...] 1 tablet by mouth once daily. omega 9-caj-lnu-fish oil 300-400-1,000 mg cap Take 1 capsule [...] (Patient not taking: Reported on 10/06/2022) Insulin [place], Disposable, (PEN NEEDLES) 31 gauge x 1/4 [...] 12+ YR Chriss Cruz documented in this encounterUniversity Hospitals Elyria Medical Center01-24-2023 Instructions* Patient Instructions* Candy Penn APRN.CNP - [...] up with Dr. Cruz. Candy Penn, MSN, BUSINESS PROJECT MANAGER, GEOLOGICAL TECHNICIAN-C, CDE Endocrinology [facility]/[address], [address] [place] [address] Fax: documented in this encounterUniversity Hospitals Elyria Medical Center01-24-2023 History of Present illness Narrative* Candy Penn [...] change medication. He is seeing nephrology in [place] ([facility] Under the care of hem/onc for colon [...] 140 units daily 135 mL 3 Insulin [place], Disposable, (PEN NEEDLES) 31 gauge x 1/4 [...] a day prn. 30 tablet 5 omega 2-aqd-fvw-fish oil 300-400-1,000 mg cap Take 1 capsule [...] minutes based on response and tolerability. 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 ([facility]) Comment: glycemic control is trending [...] Level: 4 - Moderate Candy Penn, MSN, BUSINESS PROJECT MANAGER, GEOLOGICAL TECHNICIAN-C, CDE Endocrinology [facility] Building/[address], [address] [place], [place] [address] Fax: documented in this encounterUniversity Hospitals Elyria Medical Center12-26-2022 History of Present illness Narrative* Ruma Ortiz APRN.SAWMILL PRODUCTION WORKER - 08/22/2022 10:28 AM EST CC: Patient [...] Diagnosis Date Acute GI bleeding 08/18/2015 Alcoholism ([facility]) 2003 Anemia Saw hematology and gi, 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 from pancreatitis. [...] SS up to 140 units daily Insulin [place], Disposable, (PEN NEEDLES) 31 gauge x 1/4 [...] to 5 tabs a day prn. omega 2-jya-nni-fish oil 300-400-1,000 mg cap Take 1 capsule [...] plan. Ruma Ortiz APRN.CNP documented in this encounterUniversity Hospitals Elyria Medical Center11-11-2022 Miscellaneous Notes* Telephone Encounter - Shadia Renae [...] advise. Shadia Renae Pss documented in this encounterUniversity Hospitals Elyria Medical Center10-21-2022 History of Present illness Narrative* Candy Penn [...] stating he has to travel far from [place] to do so. History in addition to [...] minutes based on response and tolerability. 2 [place] 1 Blood-Glucose Meter (FREESTYLE LITE METER) monitoring kit 1 Each as needed. 1 Each 0 sildenafil (REVATIO) 20 mg tablet 2 to 5 tabs a day prn. 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 No enough data to make changes today. Plan: HEMOGLOBIN A1C (POC), insulin glargine (LANTUS SOLOSTAR U-100 INSULIN) 100 unit/mL (3 mL), insulin lispro (ADMELOG SOLOSTAR U-100 INSULIN) 100 unit/mL, Insulin [place], Disposable, (PEN NEEDLES) 31 gauge x 1/4 ndle, alcohol swabs, blood sugar diagnostic (FREESTYLE LITE STRIPS) test strip Continue current insulin doses. Check BG 4x per day. Mail me readings in 1-2 wk. Follow up with me in 3 months or GEOLOGICAL TECHNICIAN Farhat (in [place]) (E29.1) Hypogonadism in male Comment/Plan: off supplement [...] which included preparing to see the patient, [id number] patient care, completing clinical documentation, obtaining and/or reviewing separately obtained history, performing a medically appropriate examination, counseling and educating the pat ient/family/caregiver, ordering medications, tests, or procedures, and communicating results to thepatient/family/caregiver. Candy Penn, MSN, BUSINESS PROJECT MANAGER, GEOLOGICAL TECHNICIAN-C, CDE Endocrinology [facility]/[address] [place], [place] [address] Fax: documented in this encounterUniversity Hospitals Elyria Medical Center10-07-2022 Miscellaneous Notes* Telephone Encounter - So Ferrer Pss - 06/03/2022 1:48 PM EDT Pharmacy verified in [facility] Patient has been identified by name and [...] advise. So Ferrer Pss documented in this encounterUniversity Hospitals Elyria Medical Center10-06-2022 Miscellaneous Notes* Telephone Encounter - Ilene Stewart [...] PCP. Alia Villegas LPN documented in this encounterUniversity Hospitals Elyria Medical Center10-06-2022 History of Present illness Narrative* Alia Villegas [...] PCP. Alia Villegas LPN documented in this encounterUniversity Hospitals Elyria Medical Center09-07-2022 Miscellaneous Notes* Telephone Encounter - Germaine Huffman [...] PCP. Alia Villegas LPN documented in this encounterUniversity Hospitals Elyria Medical Center09-07-2022 History of Present illness Narrative* Alia Villegas [...] PCP. Alia Villegas LPN documented in this encounterUniversity Hospitals Elyria Medical Center08-12-2022 Miscellaneous Notes* Telephone Encounter - Tabatha Bernal [...] patient. Tabatha Bernal Pss documented in this encounterUniversity Hospitals Elyria Medical Center08-03-2022 History of Present illness Narrative* Chriss Cruz [...] See Lindsay's last note: He went to [place] ER on 02/04. 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 Did [...] to the car, had dizziness. Proceeded to [place] ER. He had reproducible vertiginous symptoms and [...] to 5 tabs a day prn. omega 8-ife-mmg-fish oil 300-400-1,000 mg cap Take 1 capsule by mouth once daily. Multivitamin capsule Take 1 capsule by mouth once daily. 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 from pancreatitis. Villous adenoma PAST SURGICAL HISTORY [...] Chriss Cruz MD bp check in [facility] RTO in I six months documented in this encounterUniversity Hospitals Elyria Medical Center06-27-2022 Miscellaneous Notes* Telephone Encounter - Sujey Albarran LPN - 02/21/2022 1:35 PM EDT See telephone note from 02/10. * Telephone Encounter - Roberto Anderson - 02/09/2022 5:04 PM EDT I attempted to contact patient to discuss xray results. No answer. Left message for patient to contact me to discuss Roberto Anderson DPM documented in this encounterUniversity Hospitals Elyria Medical Center06-16-2022 Miscellaneous Notes* Telephone Encounter - Roberto Anderson [...] week Roberto Anderson DPM documented in this encounterUniversity Hospitals Elyria Medical Center06-15-2022 Instructions* Patient Instructions* Roberto Anderson - 02/09/2022 1:29 PM EDT Continue with betadine between left 4th and 5th toe Apply lambs wool to prevent rubbing Repeat xrays today. Wear surgcial shoe Apply betadine between right 4th and 5th toe Consider using toe spacer on right documented in this encounterUniversity Hospitals Elyria Medical Center06-15-2022 History of Present illness Narrative* Roberto Anderson [...] (A) 4.2 - 5.6 % Final Comment: Location:[facility] [place], [address] Point of care (POC) Hemoglobin A1c (HGBA1C) [...] specific diabetes management situations: The POC device staff training and development manager provides a normal range of 4.2% to 6.5% for the HGBA1C POC test. 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 from pancreatitis. [...] four times a day, IDDM, E11.65 Insulin [place], Disposable, (PEN NEEDLES) 31 gauge x 1/4 [...] (Patient not taking: Reported on 02/04/2022) omega 5-atc-bhl-fish oil 300-400-1,000 mg cap Take 1 capsule [...] was at last visit. documented in this encounterUniversity Hospitals Elyria Medical Center06-10-2022 Miscellaneous Notes* Telephone Encounter - Candy Penn [...] increase in symptoms. Transportneeded to take to [place] ER. Paramedics arrived at 1153. Assessment and hand off report. Patient deemed stable and [facility] nurses, and provider at bedside to assist. Time: 1147 BP: 137/79 P: 52 O2 98% RA Patient reports that he took 1 Vicodin at 0800 for Toe Pain, but has taken this in the past with noissues. Time 1149 BP: 141/79 HR: 55 O2: 98 % RA documented in this encounterUniversity Hospitals Elyria Medical Center06-10-2022 NoteHNO ID: [id number] Author: RT Julius(R) Service: Radiology Author Type: [...] BY: RT Julius(R) February 04, 2022 1:11 PMCoshocton Regional Medical [id number] Miscellaneous Notes* Telephone Encounter - Candy Penn APRN.CNP - 02/04/2022 12:42 PM EDT Reviewed Mild non proliferative diabetic retinopathy with macular edema of right eye noted. Problem list updated. Thank you * Telephone Encounter - Didi Garcia LPN - 02/04/2022 9:03 AM EDT [facility] HM Updated. documented in this encounterUniversity Hospitals Elyria Medical Center06-06-2022 History of Present illness Narrative* Lisette Lovell [...] his toe 3 weeks ago. Seen in [place] ER on 01/26 with xrays showing L [...] DO January 31, 2022 documented in this encounterUniversity Hospitals Elyria Medical Center06-06-2022 Miscellaneous Notes* Telephone Encounter - Roberto Anderson [...] ED Roberto Anderson DPM documented in this encounterUniversity Hospitals Elyria Medical Center06-03-2022 Instructions* Patient Instructions* Roberto Anderson - 01/28/2022 [...] (or decreased sensation in your feet) a folder machine should always cut your toenails. Be Careful [...] Go to your health care provider or folder machine to treat these conditions. documented in this encounterUniversity Hospitals Elyria Medical Center06-03-2022 History of Present illness Narrative* RT Kolby(R) [...] 28, 2022 2:45 PM documented in this encounterUniversity Hospitals Elyria Medical Center06-03-2022 History of Present illness Narrative* Roberto Anderson - 01/28/2022 1:42 PM EDT Subjective: Patient presents to clinic c/o painful toenails. They state that the nails are especially painful with shoe gear and pressure. Patient states that nails 1-5 b/l are painful. Patient reports that he recently noticed pain and swelling in left 4th toe. He presented to the [place] emergency room and had xrays taken. xrays [...] measure: Medication Comments: Hydrocodone/elevation documented in this encounterUniversity Hospitals Elyria Medical Center05-12-2022 Miscellaneous Notes* Telephone Encounter - Brooklyn Cortez [...] notify patient. Brooklyn Briceno documented in this encounterUniversity Hospitals Elyria Medical Center04-29-2022 Miscellaneous Notes* Telephone Encounter - Leo Harris [...] of his refill request. documented in this encounterUniversity Hospitals Elyria Medical Center04-29-2022 Miscellaneous Notes* Telephone Encounter - Sarah Howard LPN - 12/24/2021 12:06 PM EDT Notified patient of lab results. * Telephone Encounter - Sarah Howard LPN - 12/23/2021 1:15 PM EDT CEA not available in [facility] system. Dr Trevin aware. Results faxed to Dr Ibarra. Await final result before calling patient. * Telephone Encounter - Chriss Cruz MD - 12/23/2021 8:45 AM EDT Anemia is stable potassium is ok. . CEA looks ok but I need to see what his last one was. Can we pull he ceas from [facility] computer for me to see documented in this encounterUniversity Hospitals Elyria Medical Center04-19-2022 Miscellaneous Notes* Telephone Encounter - Linda Baxter [...] would be contacted after review by Dr retail center receptionist. Alia Villegas LPN documented in this encounterUniversity Hospitals Elyria Medical Center04-19-2022 History of Present illness Narrative* Alia Villegas [...] would be contacted after review by Dr retail center receptionist. Alia Villegas LPN documented in this encounterUniversity Hospitals Elyria Medical Center04-07-2022 Miscellaneous Notes* Telephone Encounter - Kassie Melchor [...] daily IF CrCl <30 Kassie Melchor PharmD, [facility] Primary Care Clinical Pharmacist Mary Harrison [facility] * Telephone Encounter - Linda Baxter [...] Thanks, Donte Amos PA-C documented in this encounterUniversity Hospitals Elyria Medical Center04-05-2022 Miscellaneous Notes* Telephone Encounter - Linda Baxter Ma - 11/30/2021 10:54 AM EDT [...] and states that patient was seen in [facility] ER on Monday. Mother reports that patient does not have DVT, but ED told her that the cause of the swelling was that amlodipine dosageis too high. Mother all asking for guidance in regards to this. Please review and advise, Nannette Huerta RN documented in this encounterUniversity Hospitals Elyria Medical Center04-02-2022 History of Present illness Narrative* Chriss Cruz [...] car last weekend down and back to [place]. No injury. Just began yesterday. Was very [...] Abs Lymph 1.00 - 4.00 k/uL 1.62 [place]% % 7.1 Abs [place] <0.87 k/uL 0.31 Eosin% % 1.8 Abs [...] to 5 tabs a day prn. omega 0-zlx-jjk-fish oil 300-400-1,000 mg cap Take 1 capsule by mouth once daily. Multivitamin capsule Take 1 capsule by mouth once daily. alcohol swabs padm Use 8 swabs daily TO CHECK BLOOD SUGAR AND FOR INSULIN INJECTIONS blood sugar diagnostic (FREESTYLE LITE STRIPS) test strip TEST four times a day, IDDM, E11.65 Insulin [place], Disposable, (PEN NEEDLES) 31 gauge x 1/4 [...] the ER. He agreeable to go to [facility]. Will communicate via ER Passport and [...] prn Medical Decision Making documented in this encounterUniversity [facility] Miscellaneous Notes* Telephone Encounter - Linda Baxter [...] labs to his oncologist. documented in this encounterUniversity Hospitals [facility]03-30-2022 History of Present illness Narrative* Chriss Cruz [...] to 5 tabs a day prn. omega 4-rgk-znz-fish oil 300-400-1,000 mg cap Take 1 capsule by mouth once daily. Multivitamin capsule Take 1 capsule by mouth once daily. alcohol swabs padm Use 8 swabs daily TO CHECK BLOOD SUGAR AND FOR INSULIN INJECTIONS blood sugar diagnostic (FREESTYLE LITE STRIPS) test strip TEST four times a day, IDDM, E11.65 Insulin [place], Disposable, (PEN NEEDLES) 31 gauge x 1/4 [...] diet. Chriss Cruz documented in this encounterC[place] [id number] Miscellaneous Notes* Telephone Encounter - Chriss Cruz [...] to notify pcp he did go to [facility] ED yest 11/21/21. Pt states he received potassium IV then was sent home. Pt was instructed to FU with pcp in 3-5 days. Pt scheduled 11/24/21 for ED FU. Didi Steele LPN documented in this encounterUniversity Hospitals [facility]03-25-2022 Miscellaneous Notes* Telephone Encounter - Chriss Cruz [...] he will not go, at least in [facility]. He is fully aware of my recommendations andthat not following my advice can lead to . * Telephone Encounter - Jessica Friedman RN - 11/19/2021 4:38 PM EDT Pt called and is notified of providers message and instructions. Pt states he thinks it's from the Amlodipine working his kidneys too hard. Pt states he is in [place] right now and can't go to the [...] to bring it down documented in this encounterUniversity Hospitals [facility]03-25-2022 Miscellaneous Notes* Telephone Encounter - Gini Hogan [...] PCP. Alia Villegas LPN documented in this encounterUniversity Hospitals [facility]03-25-2022 History of Present illness Narrative* Alia Villegas [...] PCP. Alia Villegas LPN documented in this encounterUniversity Hospitals [facility]06-04-2021 NoteHNO ID: [id number] Author: Ernesto Mayo APRN.[employer] WORK[employer] Service: ? Author Type: Nurse Practitioner Type: [...] male from [place] who presents to the [facility] outpatient neurology department with a [...] 1 ML INJECTIONS EVERY 2 WEEKS omega 7-zxv-xrp-fish oil 300-400-1,000 mg cap Take 1 capsule by mouth once daily. Multivitamin capsule Take 1 capsule by mouth once daily. alcohol swabs padm Use 8 swabs daily TO CHECK BLOOD SUGAR AND FOR INSULIN INJECTIONS blood sugar diagnostic (FREESTYLE LITE STRIPS) test strip TEST four times a day, IDDM, E11.65 Insulin [place], Disposable, (PEN NEEDLES) 31 gauge x 1/4 [...] Major depressive disorder, rec (more content not included)...[facility]04-15-2021 NoteHNO ID: [id number] Author: Liyah Still Service: ? Author Type: Physician Type: Progress Notes Filed: 12/10/2020 10:29 PM Note Text: [facility] [facility] EPILEPSY CLINIC NOTE - RETURN VISIT Chief [...] was not using pillbox. Always goes to [place] ED for seizures; given Dilaudid and something else. Each seizure lasts about 5 hours, left face and arm twitching. He remains aware, is able to talk. One seizure in 2020 so far: 11/14/2020, seen in [facility]. After IV meds, seizure subsides within 15-20 minutes typically. History of colon cancer in 2013, s/p resection, has port. 12/03/2020 - Dr. Curz reduced CBZ from 800 BID to 600 [...] were normal. MRI brain was normal at [facility] in 2019. Current AED: CBZ 600 [...] to the house. 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 EXAM Alert, [...] BID] Takes CBZ 10A (more content not included)...[facility] 06-03-2014 History of Past illness [...] of this encounter (statuses as of 11/19/2021) [facility] History of Past illness Narrative* Problem Noted [...] of this encounter (statuses as of 11/19/2021) [facility] of Past illness Narrative* Problem Noted [...] of this encounter (statuses as of 11/22/2021) [facility] of Past illness Narrative* Problem Noted [...] of this encounter (statuses as of 11/24/2021) [facility] of [facility] illness Narrative* Problem Noted [...] of this encounter (statuses as of 11/27/2021) [facility] of Past illness Narrative* Problem Noted [...] of this encounter (statuses as of 11/27/2021) [facility] of Past illness Narrative* Problem Noted [...] of this encounter (statuses as of 11/30/2021) [facility] of [facility] illness Narrative* Problem Noted [...] of this encounter (statuses as of 12/01/2021) [facility] of [facility] illness Narrative* Problem Noted [...] of this encounter (statuses as of 12/03/2021) [facility] of [facility] illness Narrative* Problem Noted [...] of this encounter (statuses as of 12/14/2021) [facility] of [facility] illness Narrative* Problem Noted [...] of this encounter (statuses as of 12/15/2021) [facility] of [facility] illness Narrative* Problem Noted [...] of this encounter (statuses as of 12/24/2021) [facility] of [facility] illness Narrative* Problem Noted [...] of this encounter (statuses as of 12/24/2021) [facility] of [facility] illness Narrative* Problem Noted [...] of this encounter (statuses as of 01/06/2022) [facility] of [facility] Narrative* Problem Noted [...] of this encounter (statuses as of 01/29/2022) [facility] Narrative* Problem Noted [...] of this encounter (statuses as of 01/29/2022) [facility] Narrative* Problem Noted [...] of this encounter (statuses as of 01/31/2022) [facility] Narrative* Problem Noted [...] of this encounter (statuses as of 02/04/2022) [facility] Narrative* Problem Noted [...] of this encounter (statuses as of 02/07/2022) [facility] Narrative* Problem Noted [...] of this encounter (statuses as of 02/09/2022) [facility] Narrative* Problem Noted [...] of this encounter (statuses as of 02/10/2022) [facility] Narrative* Problem Noted [...] of this encounter (statuses as of 02/21/2022) [facility] Narrative* Problem Noted [...] of this encounter (statuses as of 03/30/2022) [facility] Narrative* Problem Noted [...] of this encounter (statuses as of 04/11/2022) [facility] Narrative* Problem Noted [...] of this encounter (statuses as of 05/04/2022) [facility] Narrative* Problem Noted [...] of this encounter (statuses as of 05/04/2022) [facility] of [facility] Narrative* Problem Noted [...] of this encounter (statuses as of 06/02/2022) [facility] Narrative* Problem Noted [...] of this encounter (statuses as of 06/02/2022) [facility] Narrative* Problem Noted [...] of this encounter (statuses as of 06/03/2022) [facility] Narrative* Problem Noted [...] of this encounter (statuses as of 06/17/2022) [facility] Narrative* Problem Noted [...] of this encounter (statuses as of 07/08/2022) [facility] Narrative* Problem Noted [...] of this encounter (statuses as of 08/27/2022) [facility] Narrative* Problem Noted [...] of this encounter (statuses as of 09/21/2022) [facility] Narrative* Problem Noted [...] of this encounter (statuses as of 10/06/2022) [facility] Narrative* Problem Noted [...] of this encounter (statuses as of 11/28/2022) [facility] Narrative* Problem Noted [...] of this encounter (statuses as of 12/01/2022) [facility] Narrative* Problem Noted [...] of this encounter (statuses as of 12/02/2022) [facility] Narrative* Problem Noted [...] of this encounter (statuses as of 12/09/2022) [facility] Narrative* Problem Noted [...] of this encounter (statuses as of 12/29/2022) [facility] Narrative* Problem Noted [...] of this encounter (statuses as of 02/01/2023) [facility] Narrative* Problem Noted [...] of this encounter (statuses as of 02/09/2023) [facility] Narrative* Problem Noted [...] of this encounter (statuses as of 05/30/2023) [facility] Narrative* Problem Noted [...] of this encounter (statuses as of 06/23/2023) [facility] Author Dr. Hogan [facility] November 23, 2022 12:55pm Note Date/Time November 23, 2022 11: 37am [facility] Medical Records Department [address] [place] [id number] Emergency Department Summary 11/23/22 MR#: [id number] Acct: [id number] Name: REGINALDO HUFFMAN Rep #:[id number] : 1970 52 From: Galdino Hogan MD PCP: Dr. Chriss Cruz MD Status:ADM I NO Location: [address] History of Present Illness Chief Complaint: [...] Prior similar symptoms: Yes Recent [facility] Medical History Alcohol abuse Anemia Asthma Cancer [...] all 4 extremities. 5 out of 5 leadership recruiter strength. Dorsi plantarflexion intact. Normal range of [...] % (Auto) 65.2 Lymph % (Auto) 25.6 [place] % (Auto) 6.0 Eos % (Auto) 1.5 [...] rate of 72 no acute signs of GA or ischemia. No change from prior EKG from October of last year. Prior EKG tracings: available for review Prior: Unchanged Discharge Plan Dx/Rx/DC Orders Clinical Impression: Syncope, Anemia, History of diabetes mellitus Disposition Disposition: Acute Care Hospital [facility] What to do if you have Problems For any increased pain, shortness of breath, bleeding, nausea or vomiting, chestpain, or any unexpected problems, contact your Primary Care Provider. Call [facility] ([phone]) or report to the closest Emergency Room. Call 911 if necessary. 11/23/22 1255 <Electronically signed by Galdino Hogan MD> Cosigner Signature (if applicable): CC: Dr. Chriss Cruz MD ~ Signed [facility] Work Phone: Discharge summary Author Alfredo Ag [facility] December 09, 2023 11:07am Note Date/Time December 09, 2023 10: 59am [facility] Medical Records Department [address] [place] [address] Instructions for Home/Discharge Instructions 12/09/23 1058 MR#: [id number] Acct: [id number] Name: REGINALDO HUFFMAN Rep #:[id number] : [...] Rm MD; Luciana Garcia DO ~ Signed [facility] Work Phone: Discharge summary Author Alfredo Ag [facility] December 09, 2023 11:12am Note Date/Time December 09, 2023 11: 12am [facility] Medical Records Department [address] [place] [address] Discharge Summary 12/09/23 1107 MR#: [id number] Acct: [id number] Name: REGINALDO HUFFMAN Rep #:[id number] : 1970 53 From: Alfredo Ag DO PCP: Luciana Garcia DO Status:ADM I N Location: [place] [address] Providers Date of Admission: 12/07/23 Date of [...] was seen in the emergency room at [facility] due to abnormal labs which showed [...] Clarity Clear, Urine pH 6.0, Ur Specific [place] 1.015, Urine Protein 500 H, Urine Glucose [...] Self Care Charges/Coding Visit Charges Inpatient E&M: 32730 Disch Hosp >30min 12/09/23 1112 <Electronically signed by Alfredo Ag DO> Cosigner Signature (if applicable): CC: Dr. Alfredo Ag DO; Luciana Garcia DO~ Signed [facility] Work Phone: Evaluation note* Diagnosis Essential hypertension- Primary Unspecified essential hypertension documented [facility] this encounter [facility]* Diagnosis Hyperkalemia- Primary Hyperpotassemia Primary hypertension [...] Unspecified essential hypertension documented in this encounter [facility]* Diagnosis Anemia, unspecified type- Primary Renal insufficiency Unspecified disorder of kidney and ureter documented in this encounter [facility]* Diagnosis Edema of left lower leg- [...] Unspecified essential hypertension documented in this encounter [facility]* Diagnosis Essential hypertension Unspecified essential hypertension [facility] Diagnosis Acute renal disease- Primary Unspecified disorder of kidney and ureter [facility]* Diagnosis Moderate episode of recurrent major depressive disorder (HCC) [facility]* Diagnosis Onset Date Resolution Status 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 [facility] Work Phone: Evaluation note* Diagnosis [...] foot, initial encounter documented in this encounter [facility]* Diagnosis Osteomyelitis of toe (HCC) Unspecified osteomyelitis, ankle and foot documented in this encounter [facility]* Diagnosis 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, limited to breakdown of skin (HCC)- Primary documented in this encounter [facility]* Diagnosis Skin ulcer, limited to breakdown of skin (HCC)- Primary documented in this encounter [facility]* Diagnosis 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, with long-term current use of insulin (HCC) [facility]* Diagnosis OPENED IN ERROR- Primary To allow closing an encounter opened in error (used in SmartSet) [facility]* Diagnosis 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, limited to breakdown of skin (HCC)- Primary Closed nondisplaced fracture of proximal phalanx of lesser toe of left foot with routine healing, subsequent encounter [facility] Diagnosis Onset Date Resolution Status History of colon [facility] Essential tremor acute Hyponatremia acute Polyneuropathy acute Trigeminal neuralgia chronic [facility] Work Phone: Evaluation note* Diagnosis Essential [...] Anemia, unspecified type documented [facility] this encounter [facility]* Diagnosis Essential hypertension- Primary Unspecified essential hypertension documented [facility] this [facility]* Diagnosis Essential hypertension Unspecified essential hypertension Primary hypertension Unspecified essential hypertension documented in this encounter [facility]* Diagnosis Onset Date Resolution Status Essential tremor acute Hyponatremia acute Polyneuropathy acute Trigeminal neuralgia chronic 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 bryan Anemia chronic 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 bryan [facility] Work Phone: Evaluation note* Diagnosis Essential hypertension- Primary Unspecified essential hypertension [facility] Diagnosis Hypertension due to endocrine disorder Moderate episode of recurrent major depressive disorder (HCC) Recurrent seizures (HCC) Other forms of epilepsy and recurrent seizures without mention of intractable epilepsy documented [facility] this encounter [facility]* Diagnosis Type 1 diabetes mellitus with [...] unspecified obesity type documented in this encounter [facility]* Diagnosis URI, acute- Primary Acute upper respiratory infections of unspecified site documented in this encounter [facility]* Diagnosis Type 1 diabetes mellitus with [...] neoplasm of prostate documented in this encounter [facility] note* Diagnosis Seizure disorder (HCC)- [...] unspecified single disease documented in this encounter [facility] note* Diagnosis Onset Date Resolution Status 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 bryan Essential tremor chronic Polyneuropathy chronic Trigeminal neuralgia chronic Anemia chronic 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 bryan [facility] Work Phone: Evaluation note* Diagnosis Onset Date Resolution Status Essential tremor chronic Polyneuropathy chronic Trigeminal neuralgia chronic Anemia chronic 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 bryan 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 bryan Anemia acute History of diabetes mellitus acute Syncope acute [facility] Work Phone: Evaluation note* Diagnosis Onset Date Resolution Status Essential tremor chronic Polyneuropathy chronic Trigeminal neuralgia chronic Anemia chronic 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 bryan 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 bryan Anemia acute History of diabetes mellitus acute Syncope acute Varices of esophagus determined by endoscopy [facility] Work Phone: Evaluation note* Diagnosis Gastrointestinal hemorrhage, [...] blood loss (chronic) documented in this encounter [facility] note* Diagnosis Gastrointestinal hemorrhage, unspecified gastrointestinal hemorrhage type- Primary Hypertension due to endocrine disorder Mixed hyperlipidemia Seizure disorder (HCC) Unspecified epilepsy without mention of intractable epilepsy Stage 3a chronic kidney disease (HCC) documented in this encounter [facility]* Diagnosis Polyneuropathy- Primary Unspecified hereditary and idiopathic peripheral neuropathy Moderate episode of recurrent major depressive disorder (HCC) Stage 3a chronic kidney disease (HCC) Essential hypertension Unspecified essential hypertension documented in this encounter [facility]* Diagnosis Onset Date Resolution Status Anemia chronic 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 bryan Subepithelial esophageal lesion acute 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 Anemia chronic 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 bryan CKD (chronic kidney disease) chronic Diabetes 1.5, managed as type 1 chronic Neuropathy chronic Obesity chronic Anemia in chronic kidney disease chronic 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 bryan Hypertension chronic Anemia in chronic kidney disease chronic 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 Anemia in chronic kidney disease chronic 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 bryan Hypertension chronic 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 [facility] Work Phone: Evaluation note* Diagnosis Stage 3a chronic kidney disease (HCC) documented in this encounter [facility]* Diagnosis Onset Date Resolution Status Anemia in chronic kidney disease chronic 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 bryan Hypertension chronic CKD (chronic kidney disease) chronic Diabetes 1.5, managed as type 1 chronic Hypertension chronic Microalbuminuria chronic Obesity chronic Anemia in chronic kidney disease chronic 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 bryan Anemia in chronic kidney disease chronic 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 bryan Hypertension chronic Anemia in chronic kidney disease chronic 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 bryan Hypertension chronic 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 bryan Essential tremor chronic Trigeminal neuralgia chronic Anemia in chronic kidney disease chronic 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 bryan Loose stools chronic Subepithelial esophageal lesion [facility] Work Phone: Evaluation note* Diagnosis Onset Date Resolution Status Essential tremor chronic Trigeminal neuralgia chronic Anemia in chronic kidney disease chronic 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 bryan Loose stools chronic Subepithelial esophageal lesion [facility] Work Phone: Evaluation note* Diagnosis Onset Date Resolution Status Anemia in chronic kidney disease chronic 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 bryan Hypertension chronic CKD (chronic kidney disease) chronic Diabetes 1.5, managed as type 1 chronic Hypertension chronic Microalbuminuria chronic Obesity chronic Polyneuropathy chronic Acute kidney injury acute Anemia in chronic illness [facility] Work Phone: Evaluation note* Diagnosis Onset Date Resolution Status Anemia in chronic kidney disease chronic 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 bryan Hypertension chronic CKD (chronic kidney disease) chronic Diabetes 1.5, managed as type 1 chronic Hypertension chronic Microalbuminuria chronic Obesity chronic Polyneuropathy chronic Acute kidney injury acute Hyperkalemia acute Hypertensive urgency acute Anemia in chronic illness ch maciic Chronic kidney disease, stage IV (severe) chronic [facility] Work Phone: Evaluation note* Diagnosis Onset Date Resolution Status Anemia in chronic kidney disease chronic 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 bryan Hypertension chronic CKD (chronic kidney disease) [...] without bleeding chronic 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 bryan Loose stools chronic Subepithelial esophageal lesion [facility] Work Phone: Evaluation note* Diagnosis Onset Date Resolution Status Anemia in chronic kidney disease chronic 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 bryan Hypertension chronic CKD (chronic kidney disease) [...] without bleeding chronic 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 bryan Loose stools chronic Subepithelial esophageal lesion [facility] Work Phone: Evaluation note* Diagnosis ESRD on dialysis (HCC)- Primary End stage renal disease Pre-transplant evaluation for ESRD (end stage renal disease) Other specified pre-operative examination Hypertension, unspecified type [facility] Diagnosis Pre-transplant evaluation for kidney transplant- Primary Other specified pre-operative examination [facility] Diagnosis ESRD (end stage renal disease) on dialysis- Primary End stage renal disease Pre-transplant evaluation for kidney transplant Diabetic nephropathy associated with type 2 diabetes mellitus Pre-transplant evaluation for kidney transplant [facility] evaluation for kidney transplant [facility] Diagnosis Pre-transplant evaluation for kidney transplant- Primary [facility] Pre-transplant evaluation for kidney transplant ESRD (end stage renal disease) on dialysis End stage renal disease [facility] Diagnosis Pre-operative cardiovascular examination- Primary Pre-transplant evaluation for kidney transplant ESRD (end stage renal disease) on dialysis End stage renal disease [facility] Diagnosis Pre-transplant evaluation for kidney transplant ESRD (end stage renal disease) on dialysis End stage renal disease [facility] Diagnosis Hepatosplenomegaly- Primary Other chronic nonalcoholic liver disease Liver lesion Other specified disorders of liver Secondary esophageal varices with bleeding Esophageal varices with bleeding in diseases classified elsewhere [facility] Diagnosis Hepatic fibrosis Cirrhosis of liver without mention of alcohol [facility] Liver lesion- Primary Other specified disorders of liver Portal hypertension [facility] Diagnosis Hepatosplenomegaly Other chronic nonalcoholic liver disease Liver lesion Other specified disorders of liver [facility] Author Dr. Renae [facility] November 23, 2022 1:14pm Note Date/Time November 23, 2022 1:1 4pm [facility] Medical Records Department [address] [place] [address] H&P Exam - Hospitalist 11/23/22 1307 MR#: [id number] Acct: [id number] Name: REGINALDO HUFFMAN Rep #:[id number] : 1970 52 From: Maria Antonia Renae MD PCP: Dr. Chriss Cruz MD Status:ADM I NO Location: [place] [address]- 1 HPI - General General Date of Admission: 11/23/22 Date of Service: 11/23/22 HPI Narrative REGINALDO HUFFMAN, is a 52 M with history of trigeminal neuralgia, depression, vertigo, type 2 diabetes mellitus, colon cancer status post resection chemo radiation in 2013, hypertension who presented to [facility] 11/23/2022 after syncopal episode. In the ED he was found to have a hemoglobin of 6.3 and hospitalist consulted for admission. He reportedly has a history of anemia and recently started to shots to help his hemoglobin a week ago through Dr. 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 He had been in his usual health [...] had any GI upset before or after. [facility] Medical History Alcohol abuse Anemia Asthma Cancer [...] % (Auto) 65.2, Lymph % (Auto) 25.6, [place] % (Auto) 6.0, Eos % (Auto) 1.5, [...] documentation, 60minutes Charges/Coding Visit Charges Inpatient E&M: 53498 Init Hosp L2 11/23/22 1314 <Electronically signed by Maria Antonia Renae MD> Cosigner Signature (if applicable): CC: Dr. Maria Antonia Renae MD; Dr. Chriss Cruz MD~ Signed [facility] Work Phone: Hospital Discharge instructions Additional Instructions Continue take your regular medicines as prescribed. You do have influenza A which likely explains your acute symptoms. You been given inhaler as well as some cough medicine to help with your symptoms. If your breathing worsens please return to the emergency room. I recommend taking zkzl-vtn-[id number] Coricidin HBP for emzt-sbu-rfinkli cold and flu medicine as will not affect her blood pressure.[facility] Work Phone: Hospital Discharge instructions Additional Instructions Your creatinine today was 4.0. You need to continue to follow-up outpatient. [facility] Work Phone: Progress note Author Grisel Timmons [facility] Note Date/Time June 18, 2025 1 2:37pm [facility] 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 Kimberlyn East MD ~ [facility] Work Phone: Reason for referral (narrative)* Outpatient Procedure (Routine) - Authorized Specialty Diagnoses / Procedures Referred By Contlurdes t Referred To Contact [facility] Diagnoses Hyperkalemia Primary hypertension Procedures US RENAL ARTERY UNL VAS LAB DUP-SCAN ARTL SHARMIN ABDL/PEL/SCROT&/RPR ORGN LMT Chriss Cruz MD [address] [place] [address] [facility] [address] [place] [address] Referral ID Status Reason Start Date Expiration Date Visits Requested Visits Authorized [id number] Authorized Auto-Generat ed Referral 11/24/2021 11/24/2022 1 1 [facility] for referral (narrative)* Diagnostic Procedure Only (Urgent) - Closed Specialty Diagnoses / Procedures Referred By Contac t Referred To Contact XR IMAGING Diagnoses Osteomyelitis of toe (HCC) Procedures XR FOOT GENERAL 3V AP/LAT/OBL LEFT RADEX FOOT COMPLETE MINIMUM 3 VIEWS Roberto Anderson[address] [place] [address] Xr Imaging Referral ID Status Reason Start Date Expiration Date V isits Requested Visits Authorized [id number] Closed Auto-Generate d Referral 01/28/2022 02/27/2023 1 1 [facility] for referral (narrative)* Diagnostic Procedure Only (Routine) [...] 2 VIEWS Roberto Anderson[address] [place] [address] Xr Imaging Referral ID Status Reason Start Date Expiration Date V isits Requested Visits Authorized [id number] Closed Auto-Generate d Referral 02/09/2022 03/11/2023 1 1 [facility] for referral (narrative)No reason for referral [facility] Work Phone: Reason for visit Narrative* Diagnostic Procedure Only (Urgent) - Closed Specialty Diagnoses / Procedures Referred By Contac t Referred To Contact XR IMAGING Diagnoses Osteomyelitis of toe (HCC) Procedures XR FOOT GENERAL 3V AP/LAT/OBL LEFT RADEX FOOT COMPLETE MINIMUM 3 VIEWS Roberto Anderson[address] [place] [address] Xr Imaging Referral ID Status Reason Start Date Expiration Date V isits Requested Visits Authorized [id number] Closed Auto-Generate d Referral 01/28/2022 02/27/2023 1 1 [facility] for visit Narrative* MRI/CAT Scan (Routine) - Closed Specialty Diagnoses / Procedures Referred By Kimmy garcía Referred To Contact Diagnoses Pre-transplant evaluation for kidney transplant ESRD (end stage renal disease) on dialysis Procedures CT ANGIO ABDOMINAL AORTA WITH RUNOFF CHG CTA ABDL AORTA&BI ILIOFEM W/CONTRAST&POSTP Tyrese Lange MBBS [address] [place] [address] Phone: tel: fax: Referral ID Status Reason Start Date Expiration Date Visits Re quested Visits Authorized [id number] Closed 11/08/2024 12/03/2025 1 1 [facility] for visit Narrative* Radiology (Routine) - Closed Specialty Diagnoses / Procedures Referred By Kimmy garcía Referred To Contact Echocardiography Diagnoses Pre-transplant evaluation for kidney transplant ESRD (end stage renal disease) on dialysis Procedures ECHOCARDIOGRAM CA ECHO TTHRC R-T 2D W/WOM-MODE COMPL SPEC&COLR D Tyrese Lange MBBS [address] [place] [address] Phone: tel: fax: [facility] [address] [place] [address] Phone: tel: Referral ID Status Reason Start Date Expiration Date Visits Re quested Visits Authorized [id number] Closed 11/08/2024 12/03/2025 1 1 [facility] for visit Narrative* Radiology (Routine) - New Request Specialty Diagnoses / Procedures Referred By Kimmy garcía Referred To Contact Diagnoses Pre-transplant evaluation for kidney transplant ESRD (end stage renal disease) on dialysis Procedures NUC MYOCARD PERF STRESS MIBI PHARM NUC MYOCARD PERF STRESS MIBI EXERCISE CHG MYOCARDIAL SPECT MULTIPLE STUDIES CA CV STRS TST XERS&/OR RX CONT ECG TRCG ONLY CHG MYOCARDIAL SPECT MULTIPLE STUDIES-T CA CV STRS TST XERS&/OR RX CONT ECG I&R ONLY CA CV STRS TST XERS&/OR RX CONT ECG W/O I&R Tyrese Lange MB[employer] [address] [place] [address] Phone: tel: fax: Referral ID Status Reason Start Date Expiration Date V isits Requested Visits Authorized [id number] New Request 11/08/2024 12/03/2025 1 1 [facility] for visit Narrative* Auth/Cert Specialty Diagnoses / Procedures Referred By Kimmy garcía Referred To Contact Diagnoses Hepatic fibrosis Hepatic fibrosis [K74.00] Procedures CHG HEPATC VNGRPH WDG/FR HEMODYN EVAL RS&I CA TRANSCATHETER BIOPSY CHG TRANSCATHETER BIOPSY RS&I VENOGRAPHY HEPATIC W/HEMODYNM EVALUATION W/S&I BX TRANSCATHETER BX TRANSCATHETER W/ S&I [facility] [address] [place] [address] [facility] [address] [place] [address] Referral ID Status Reason Start Date Expiration Date Visits Re quested Visits Authorized [id number] 1 1 [facility] for visit Narrative* MRI/CAT Scan (Routine) - Closed Specialty Diagnoses / Procedures Referred By Kimmy garcía Referred To Contact Diagnoses Hepatosplenomegaly Liver lesion Procedures CT ABDOMEN WITH AND WITHOUT CONTRAST CHG CT ABDOMEN W/O CONTRAST FLWD BY CONTRAST Lillian Macias DO Phone: tel: fax: Referral ID Status Reason Start Date Expiration Date Visits Re quested Visits Authorized [id number] Closed 12/25/2024 01/19/2026 1 1 [facility] Summary Purpose Family History Relationship Condition Age [...] Documents on File Type Date Recorded Patient Healthcare Risk Control Consultant Expl anation Advance Directive(s) Advance Directive(s) 05/03/2019 7:09 AM Documents on File Type Date Recorded Patient Healthcare Risk Control Consultant Expl anation Advance Directive(s) Advance Directive(s) 05/03/2019 7:09 AM Advance Directive Response Recorded Date/ Time Name of Medical Power of Job Cost Estimator KEVIN mother November 21, 2021 12:42pm Name of Medical Power of Job Cost Estimator November 27, 2021 12:16pm Advance Directives No June 12:24pm Living Will No January 26, 2022 3 :16am Power of Job Cost Estimator No January 26, 2022 3:16am Documents on File Type Date Recorded Patient Healthcare Risk Control Consultant Expl anation Advance Directive(s) Advance Directive(s) 02/04/2022 1:15 PM Advance Directive(s) 05/03/2019 7:09 AM Documents on File Type Date Recorded Patient Healthcare Risk Control Consultant Expl anation Advance Directive(s) Advance Directive(s) 02/04/2022 1:15 PM Advance Directive(s) 05/03/2019 7:09 AM Advance Directive Response Recorded Date/ Time Name of Medical Power of Job Cost Estimator mother BROWN November 21, 2021 12:42pm Name of Medical Power of Job Cost Estimator November 27, 2021 12:16pm Name of Medical Power of Job Cost Estimator MARIBEL CEDENO February 13, 2022 1:59pm Advance Directives No June 12:24pm Living Will Yes February 13, 2022 1:59pm Power of Job Cost Estimator Yes February 13 1:59pm Advance Directive Response Recorded Date/ Time Name of Medical Power of Job Cost Estimator MARIBEL MOTHER February 13, 2022 1:59pm Advance Directives No June 12:24pm Living Will Yes February 13, 2022 1:59pm Power of Job Cost Estimator Yes February 13 1:59pm Advance Directive Response Recorded Date/ Time Advance Directives No June 11:24am Living Will Yes February 13, 2022 12:59pm Power of Job Cost Estimator Yes February 13 12:59pm Advance Directive Response Recorded Date/ Time Advance Directives No June 12:24pm Living Will Yes February 13, 2022 1:59pm Power of Job Cost Estimator Yes February 13 1:59pm Advance Directive Response Recorded Date/ Time Name of Medical Power of Job Cost Estimator LOUIS HUFFMAN November 23, 2022 11:10am Advance Directives No June 12:24pm Living Will Yes November 23, 2022 11:10am Power of Job Cost Estimator Yes November 23 11:10am Advance Directive Response Recorded Date/ Time Name of Medical Power of Job Cost Estimator Louis Huffman, jose November 23, 2022 2:27pm Advance Directives No June 12:24pm Living Will Yes November 23, 2022 2:27pm Power of Job Cost Estimator Yes November 23 2:27pm Advance Directive Response Recorded Date/ Time Name of Medical Power of Job Cost Estimator LOUIS HUFFMAN January 14, 2023 4:31am Advance Directives No June 12:24pm Living Will Yes January 14, 2023 4 :31am Power of Job Cost Estimator Yes January 14, 2023 4:31am Advance Directive Response Recorded Date/ Time Advance Directives No June 11:24am Living Will No May 25, 2023 11:49am Power of Job Cost Estimator No April 11:49am Advance Directive Response Recorded Date/ Time Name of Medical Power of Job Cost Estimator FAMILY July 31, 2023 10:40am Advance Directives No June 11:24am Living Will Yes July 31 10:40am Power of Job Cost Estimator Yes July 31, 2023 10:40am Advance Directive Response Recorded Date/ Time Name of Medical Power of Job Cost Estimator FAMILY July 31, 2023 10:40am Advance Directives No June 11:24am Living Will No October 16, 8:35am Power of Job Cost Estimator No October 16, 2023 8:35am Advance Directive Response Recorded Date/ Time Name of Medical Power of Job Cost Estimator FAMILY July 31, 2023 11:40am Advance Directives No June 12:24pm Living Will No October 16, 024 9:35am Power of Job Cost Estimator No October 16, 2023 9:35am Advance Directive Response Recorded Date/ Time Name of Medical Power of Job Cost Estimator Louis Huffman December 07, 2023 10:11pm Advance Directives No June 12:24pm Living Will Yes December 07, 2023 10:11pm Power of Job Cost Estimator Yes December 06 10:11pm Advance Directive Response Recorded Date/ Time Name of Medical Power of Job Cost Estimator Louis Huffman December 07, 2023 10:11pm Name of Medical Power of Job Cost Estimator louis herrera other December 18, 2023 3:13pm Advance Directives No June 12:24pm Living Will Yes December 18, 2023 3:13pm Power of Job Cost Estimator Yes December 17 3:13pm Advance Directive Response Recorded Date/ Time Living Will Yes June 26 12:39pm Do you have a Healthcare Pow er of Job Cost Estimator? Yes June 26, 2024 12:39pm Living Will No November 13, 2015 9:15pm Do you have a Healthcare Pow er of Job Cost Estimator? No November 13, 2015 9:15pm Advance Directives on File Yes October 30, 2024 8:46am Do you have a Healthcare Pow er of Job Cost Estimator? Yes October 30, 2024 8:46am Name of Medical Power of Job Cost Estimator Louis Herrera other October 30, 2024 8:46am Advance Directives Yes October 30 8:46am Advance Directive Response Recorded Date/ Time Living Will Yes June 26 12:39pm Do you have a Healthcare Power of Job Cost Estimator? Yes June 26, 2024 12:39pm Living Will No November 13, 2015 9:15pm Do you have a Healthcare Power of Job Cost Estimator? No November 13, 2015 9:15pm Advance Directives Yes October 30 8:46am Advance Directive Response Recorded Date/ Time Living Will No November 13, 2015 9:15pm Do you have a Healthcare Power of Job Cost Estimator? No November 13, 2015 9:15pm Advance Directives Yes October 30 8:46am Advance Directive Response Recorded Date/ Time Living Will No November 13, 2015 9:15pm Do you have a Healthcare Power of Job Cost Estimator? No November 13, 2015 9:15pm Advance Directives on File No Octob er 2024 8:21am Living Will Yes June 04 8:21am Do you have a Healthcare Power of Job Cost Estimator? Yes June 04, 2025 8:21am Name of Medical Power of Job Cost Estimator Mother June 04, 2025 8:21am Advance Directives Yes June 04, 2025 8:21am Advance Directive Response Recorded Date/ Time Living Will No November 13, 2015 8:15pm Do you have a Healthcare Power of Job Cost Estimator? No November 13, 2015 8:15pm Advance Directives on File No Octob er 2024 7:21am Living Will Yes June 04 7:21am Do you have a Healthcare Power of Job Cost Estimator? Yes June 04, 2025 7:21am Name of Medical Power of Job Cost Estimator Mother June 04, 2025 7:21am Advance Directives [...] Admit Date Vascular dialysis catheter in place [facility] 2024 7:21am History of colon cancer December [...] 2024 10:11am [facility] Gastric varices without [facility] 10:11am History of colon cancer [...] encounter TestRoberto vazquez [address] [place] [address] Referral ID Status Reason Start Date Expiration Date Visits Re quested Visits Authorized [id number] Closed 1 1 Specialty Diagnoses / Procedures Referred By Kimmy garcía Referred To Contact XR IMAGING Diagnoses Osteomyelitis of toe (HCC) Procedures XR FOOT GENERAL 3V AP/LAT/OBL LEFT RADEX FOOT COMPLETE MINIMUM 3 VIEWS Roberto Anderson [address] [place] [address] Xr Imaging Referral ID Status Reason Start Date Expiration Date V isits Requested Visits Authorized [id number] Closed Auto-Generate d Referral 01/28/2022 02/27/2023 1 [...] eye and macular edema (HCC) Candy Penn, CHAPARRITA.[employer] WORKER [address] [address] Referral ID Status Reason Start Date Expiration Date Visits Re quested Visits Authorized [id number] Closed 1 1 Specialty Diagnoses / Procedures [...] eye and macular edema (HCC) Candy Penn APRN.[employer] WORK[employer] [address] [place] [address] Referral ID Status Reason Start Date Expiration Date Visits Re quested Visits Authorized [id number] Closed 1 1 Specialty Diagnoses / Procedures [...] W & W/O CONTRAST Tim Huynh MD [address] [place] [address] [facility] [address] [place] [address] Referral ID Status Reason Start Date Expiration Date Visits Requested Visits Authorized [id number] Pending Review Financial Clearance Required - [employer]ON Payor 09/11/2024 09/11/2025 99 99 Additional Source Comments (unrecognized sect ion and content) No Status Records FoundNo Status Records FoundNo Status Records FoundNo Status Records FoundNo Status Records Found INFORMATION SOURCE (unrecogn ized section and content) DATE CREATED AUTHOR 02/03/2021 [facility] DATE CREATED AUTHOR AUTHOR'S ORGANIZ ATION 02/08/2022 [facility] DATE CREATED AUTHOR AUTHOR'S ORGANIZ ATION 12/01/2024 [facility] DATE CREATED AUTHOR AUTHOR'S ORGANIZ ATION 06/29/2025 [facility] DATE CREATED AUTHOR AUTHOR'S ORGANIZ ATION 07/02/2025 [facility] Source Comments (unrecognize d section and content) In the event this informatio n is protected by the Federal Confidentiality of Alcohol and Drug Abuse Patient Records regulations: The Federal rules restrict any use of the information to criminally investigate or prosecute any alcohol or drug abuse patient.[facility] the event this information is protected by the Federal Confidentiality of Alcohol and Drug Abuse Patient Records regulations: The Federal rules restrict any use of the information to criminally investigate or prosecute any alcohol or drug abuse patient.[facility] Center[facility] the event this information is protected by the Federal Confidentiality of Alcohol and Drug Abuse Patient Records regulations: The Federal rules restrict any use of the information to criminally investigate or prosecute any alcohol or drug abuse patient.[facility] Center[facility] the event this information is protected by the Federal Confidentiality of Alcohol and Drug Abuse Patient Records regulations: The Federal rules restrict any use of the information to criminally investigate or prosecute any alcohol or drug abuse patient.[facility] Center[facility] the event this information is protected by the Federal Confidentiality of Alcohol and Drug Abuse Patient Records regulations: The Federal rules restrict any use of the information to criminally investigate or prosecute any alcohol or drug abuse patient.[facility] Center[facility] the event this information is protected by the Federal Confidentiality of Alcohol and Drug Abuse Patient Records regulations: The Federal rules restrict any use of the information to criminally investigate or prosecute any alcohol or drug abuse patient.[facility] CenterIn the event this information is protected by the Federal Confidentiality of Alcohol and Drug Abuse Patient Records regulations: The Federal rules restrict any use of the information to criminally investigate or prosecute any alcohol or drug abuse patient.[facility] CenterIn the event this information is protected by the Federal Confidentiality of Alcohol and Drug Abuse Patient Records regulations: The Federal rules restrict any use of the information to criminally investigate or prosecute any alcohol or drug abuse patient.[facility] CenterIn the event this information is protected by the Federal Confidentiality of Alcohol and Drug Abuse Patient Records regulations: The Federal rules restrict any use of the information to criminally investigate or prosecute any alcohol or drug abuse patient.[facility] CenterIn the event this information is protected by the Federal Confidentiality of Alcohol and Drug Abuse Patient Records regulations: The Federal rules restrict any use of the information to criminally investigate or prosecute any alcohol or drug abuse patient.[facility] CenterIn the event this information is protected by the Federal Confidentiality of Alcohol and Drug Abuse Patient Records regulations: The Federal rules restrict any use of the information to criminally investigate or prosecute any alcohol or drug abuse patient.[facility] CenterIn the event this information is protected by the Federal Confidentiality of Alcohol and Drug Abuse Patient Records regulations: The Federal rules restrict any use of the information to criminally investigate or prosecute any alcohol or drug abuse patient.[facility] CenterIn the event this information is protected by the Federal Confidentiality of Alcohol and Drug Abuse Patient Records regulations: The Federal rules restrict any use of the information to criminally investigate or prosecute any alcohol or drug abuse patient.[facility] CenterIn the event this information is protected by the Federal Confidentiality of Alcohol and Drug Abuse Patient Records regulations: The Federal rules restrict any use of the information to criminally investigate or prosecute any alcohol or drug abuse patient.[facility] CenterIn the event this information is protected by the Federal Confidentiality of Alcohol and Drug Abuse Patient Records regulations: The Federal rules restrict any use of the information to criminally investigate or prosecute any alcohol or drug abuse patient.[facility] CenterIn the event this information is protected by the Federal Confidentiality of Alcohol and Drug Abuse Patient Records regulations: The Federal rules restrict any use of the information to criminally investigate or prosecute any alcohol or drug abuse patient.[facility] CenterIn the event this information is protected by the Federal Confidentiality of Alcohol and Drug Abuse Patient Records regulations: The Federal rules restrict any use of the information to criminally investigate or prosecute any alcohol or drug abuse patient.[facility] CenterIn the event this information is protected by the Federal Confidentiality of Alcohol and Drug Abuse Patient Records regulations: The Federal rules restrict any use of the information to criminally investigate or prosecute any alcohol or drug abuse patient.[facility] CenterIn the event this information is protected by the Federal Confidentiality of Alcohol and Drug Abuse Patient Records regulations: The Federal rules restrict any use of the information to criminally investigate or prosecute any alcohol or drug abuse patient.[facility] CenterIn the event this information is protected by the Federal Confidentiality of Alcohol and Drug Abuse Patient Records regulations: The Federal rules restrict any use of the information to criminally investigate or prosecute any alcohol or drug abuse patient.[facility] CenterIn the event this information is protected by the Federal Confidentiality of Alcohol and Drug Abuse Patient Records regulations: The Federal rules restrict any use of the information to criminally investigate or prosecute any alcohol or drug abuse patient.[facility] CenterIn the event this information is protected by the Federal Confidentiality of Alcohol and Drug Abuse Patient Records regulations: The Federal rules restrict any use of the information to criminally investigate or prosecute any alcohol or drug abuse patient.[facility] CenterIn the event this information is protected by the Federal Confidentiality of Alcohol and Drug Abuse Patient Records regulations: The Federal rules restrict any use of the information to criminally investigate or prosecute any alcohol or drug abuse patient.[facility] CenterIn the event this information is protected by the Federal Confidentiality of Alcohol and Drug Abuse Patient Records regulations: The Federal rules restrict any use of the information to criminally investigate or prosecute any alcohol or drug abuse patient.[facility] CenterIn the event this information is protected by the Federal Confidentiality of Alcohol and Drug Abuse Patient Records regulations: The Federal rules restrict any use of the information to criminally investigate or prosecute any alcohol or drug abuse patient.[facility] CenterIn the event this information is protected by the Federal Confidentiality of Alcohol and Drug Abuse Patient Records regulations: The Federal rules restrict any use of the information to criminally investigate or prosecute any alcohol or drug abuse patient.[facility] CenterIn the event this information is protected by the Federal Confidentiality of Alcohol and Drug Abuse Patient Records regulations: The Federal rules restrict any use of the information to criminally investigate or prosecute any alcohol or drug abuse patient.[facility] CenterIn the event this information is protected by the Federal Confidentiality of Alcohol and Drug Abuse Patient Records regulations: The Federal rules restrict any use of the information to criminally investigate or prosecute any alcohol or drug abuse patient.[facility] CenterIn the event this information is protected by the Federal Confidentiality of Alcohol and Drug Abuse Patient Records regulations: The Federal rules restrict any use of the information to criminally investigate or prosecute any alcohol or drug abuse patient.[facility] CenterIn the event this information is protected by the Federal Confidentiality of Alcohol and Drug Abuse Patient Records regulations: The Federal rules restrict any use of the information to criminally investigate or prosecute any alcohol or drug abuse patient.[facility] CenterIn the event this information is protected by the Federal Confidentiality of Alcohol and Drug Abuse Patient Records regulations: The Federal rules restrict any use of the information to criminally investigate or prosecute any alcohol or drug abuse patient.[facility] CenterIn the event this information is protected by the Federal Confidentiality of Alcohol and Drug Abuse Patient Records regulations: The Federal rules restrict any use of the information to criminally investigate or prosecute any alcohol or drug abuse patient.[facility] CenterIn the event this information is protected by the Federal Confidentiality of Alcohol and Drug Abuse Patient Records regulations: The Federal rules restrict any use of the information to criminally investigate or prosecute any alcohol or drug abuse patient.[facility] CenterIn the event this information is protected by the Federal Confidentiality of Alcohol and Drug Abuse Patient Records regulations: The Federal rules restrict any use of the information to criminally investigate or prosecute any alcohol or drug abuse patient.[facility] CenterIn the event this information is protected by the Federal Confidentiality of Alcohol and Drug Abuse Patient Records regulations: The Federal rules restrict any use of the information to criminally investigate or prosecute any alcohol or drug abuse patient.[facility] CenterIn the event this information is protected by the Federal Confidentiality of Alcohol and Drug Abuse Patient Records regulations: The Federal rules restrict any use of the information to criminally investigate or prosecute any alcohol or drug abuse patient.[facility] CenterIn the event this information is protected by the Federal Confidentiality of Alcohol and Drug Abuse Patient Records regulations: The Federal rules restrict any use of the information to criminally investigate or prosecute any alcohol or drug abuse patient.[facility] CenterIn the event this information is protected by the Federal Confidentiality of Alcohol and Drug Abuse Patient Records regulations: The Federal rules restrict any use of the information to criminally investigate or prosecute any alcohol or drug abuse patient.[facility] CenterIn the event this information is protected by the Federal Confidentiality of Alcohol and Drug Abuse Patient Records regulations: The Federal rules restrict any use of the information to criminally investigate or prosecute any alcohol or drug abuse patient.[facility] CenterIn the event this information is protected by the Federal Confidentiality of Alcohol and Drug Abuse Patient Records regulations: The Federal rules restrict any use of the information to criminally investigate or prosecute any alcohol or drug abuse patient.[facility] CenterIn the event this information is protected by the Federal Confidentiality of Alcohol and Drug Abuse Patient Records regulations: The Federal rules restrict any use of the information to criminally investigate or prosecute any alcohol or drug abuse patient.[facility] CenterIn the event this information is protected by the Federal Confidentiality of Alcohol and Drug Abuse Patient Records regulations: The Federal rules restrict any use of the information to criminally investigate or prosecute any alcohol or drug abuse patient.[facility] CenterIn the event this information is protected by the Federal Confidentiality of Alcohol and Drug Abuse Patient Records regulations: The Federal rules restrict any use of the information to criminally investigate or prosecute any alcohol or drug abuse patient.[facility] CenterIn the event this information is protected by the Federal Confidentiality of Alcohol and Drug Abuse Patient Records regulations: The Federal rules restrict any use of the information to criminally investigate or prosecute any alcohol or drug abuse patient.[facility] CenterIn the event this information is protected by the Federal Confidentiality of Alcohol and Drug Abuse Patient Records regulations: The Federal rules restrict any use of the information to criminally investigate or prosecute any alcohol or drug abuse patient.[facility] CenterIn the event this information is protected by the Federal Confidentiality of Alcohol and Drug Abuse Patient Records regulations: The Federal rules restrict any use of the information to criminally investigate or prosecute any alcohol or drug abuse patient.[facility] CenterIn the event this information is protected by the Federal Confidentiality of Alcohol and Drug Abuse Patient Records regulations: The Federal rules restrict any use of the information to criminally investigate or prosecute any alcohol or drug abuse patient.[facility] CenterIn the event this information is protected by the Federal Confidentiality of Alcohol and Drug Abuse Patient Records regulations: The Federal rules restrict any use of the information to criminally investigate or prosecute any alcohol or drug abuse patient.[facility] CenterIn the event this information is protected by the Federal Confidentiality of Alcohol and Drug Abuse Patient Records regulations: The Federal rules restrict any use of the information to criminally investigate or prosecute any alcohol or drug abuse patient.[facility] CenterIn the event this information is protected by the Federal Confidentiality of Alcohol and Drug Abuse Patient Records regulations: The Federal rules restrict any use of the information to criminally investigate or prosecute any alcohol or drug abuse patient.[facility] CenterIn the event this information is protected by the Federal Confidentiality of Alcohol and Drug Abuse Patient Records regulations: The Federal rules restrict any use of the information to criminally investigate or prosecute any alcohol or drug abuse patient.[facility] CenterIn the event this information is protected by the Federal Confidentiality of Alcohol and Drug Abuse Patient Records regulations: The Federal rules restrict any use of the information to criminally investigate or prosecute any alcohol or drug abuse patient.[facility] Reason for Visit (unrecogniz ed section and [...] Physician Consult Reason Comments Diabetic Eye Exam [facility] Reason Comments Bradycardia Reason Comments Insulin [...] up Reason Comments Diabetic Eye Exam Report [facility] Reason Onset Date Comments Refill Request 05/29/2023 Reason Comments Referral - Kidney Txp Reason Comments Kidney Recipient Evaluation Specialty Diagnoses / Procedures Referred By Contac t Referred To Contact Nephrology / Transplant Surgery Procedures PRE NEW PATIENT Self, Self Tyrese Lange, RYANNE [address] [place] [address] Phone: tel: fax: Referral ID Status Reason Start Date Expiration Date V isits Requested Visits Authorized [id number] New Request 11/08/2024 12/03/2025 1 1 Reason Comments Social Work Consult Reason Comments Referral - Kidney Txp NS on 11/20 Reason Comments New Patient Pt.states he's his l abs have been elevated. Specialty Diagnoses / Procedures Referred By Kimmy garcía Referred To Contact Gastroenterology Diagnoses Pre-transplant evaluation for kidney transplant Tyrese Lange, RYANNE [address] [place] [address] Phone: tel: fax: Referral ID Status Reason Start Date Expiration Date V isits Requested Visits Authorized [id number] New Request 12/19/2024 01/13/2026 1 1 Reason Comments Follow-up Pt is doing ok Care Teams (unrecognized sec tion and content) Land Surveyor Assistant Relationship Specialty Start Date End Date Chriss Cruz MD [address] [place] [address] PCP - General Family Practice 01/17/19 Jeancarlos Wolff MD [address] [place] [address] Gastroenterology 09/04/14 Land Surveyor Assistant Relationship Specialty Start Date End Date Chriss Cruz MD [address] [place] [address] PCP - General Family Practice 01/17/19 Jeancarlos Wolff MD [address] [place] [address] Gastroenterology 09/04/14 Land Surveyor Assistant Relationship Specialty Start Date End Date Chriss Cruz MD [address] [place] [address] PCP - General Family Practice 01/17/19 Jeancarlos Wolff MD [address] [place] [address] Gastroenterology 09/04/14 Land Surveyor Assistant Relationship Specialty Start Date End Date Chriss Cruz MD [address] [place] [address] PCP - General Family Practice 01/17/19 Jeancarlos Wolff MD [address] [place] [address] Gastroenterology 09/04/14 Land Surveyor Assistant Relationship Specialty Start Date End Date Chriss Cruz MD [address] [place] [address] PCP - General Family Practice 01/17/19 Jeancarlos Wolff MD [address] [place] [address] Gastroenterology 09/04/14 Land Surveyor Assistant Relationship Specialty Start Date End Date Chriss Cruz MD [address] [place] [address] PCP - General Family Practice 01/17/19 Jeancarlos Wolff MD [address] [place] [address] Gastroenterology 09/04/14 Land Surveyor Assistant Relationship Specialty Start Date End Date Chriss Cruz MD [address] [place] [address] PCP - General Family Practice 01/17/19 Jeancarlos Wolff MD [address] [place] [address] Gastroenterology 09/04/14 Land Surveyor Assistant Relationship Specialty Start Date End Date Chriss Cruz MD [address] [place] [address] PCP - General Family Practice 01/17/19 Jeancarlos Wolff MD [address] [place] [address] Gastroenterology 09/04/14 Land Surveyor Assistant Relationship Specialty Start Date End Date Chriss Cruz MD [address] [place] [address] PCP - General Family Practice 01/17/19 Jeancarlos Wolff MD [address] [place] [address] Gastroenterology 09/04/14 Land Surveyor Assistant Relationship Specialty Start Date End Date Chriss Cruz MD [address] [place] [address] PCP - General Family Practice 01/17/19 Jeancarlos Wolff MD [address] [place] [address] Gastroenterology 09/04/14 Land Surveyor Assistant Relationship Specialty Start Date End Date Chriss Cruz MD [address] [place] [address] PCP - General Family Practice 01/17/19 Jeancarlos Wolff MD [address] [place] [address] Gastroenterology 09/04/14 Land Surveyor Assistant Relationship Specialty Start Date End Date Chriss Cruz MD [address] [place] [address] PCP - General Family Practice 01/17/19 Jeancarlos Wolff MD [address] [facility] [place] [address] Gastroenterology 09/04/14 Land Surveyor Assistant Relationship Specialty Start Date End Date Chriss Cruz MD [address] [place] [address] PCP - General Family Practice 01/17/19 Jeancarlos Wolff MD [address] [place] [address] Gastroenterology 09/04/14 Land Surveyor Assistant Relationship Specialty Start Date End Date Chriss Cruz MD [address] [place] [address] PCP - General Family Practice 01/17/19 Jeancarlos Wolff MD [address] [place] [address] Gastroenterology 09/04/14 Land Surveyor Assistant Relationship Specialty Start Date End Date Chriss Cruz MD [address] [place] [address] PCP - General Family Practice 01/17/19 Jeancarlos Wolff MD [address] [place] [address] Gastroenterology 09/04/14 Land Surveyor Assistant Relationship Specialty Start Date End Date Chriss Cruz MD [address] [place] [address] PCP - General Family Practice 01/17/19 Jeancarlos Wolff MD [address] [place] [address] Gastroenterology 09/04/14 Land Surveyor Assistant Relationship Specialty Start Date End Date Chriss Cruz MD [address] [place] [address] PCP - General Family Medicine 01/17/19 Jeancarlos Wolff MD [address] [place] [address] Gastroenterology 09/04/14 Land Surveyor Assistant Relationship Specialty Start Date End Date Chriss Cruz MD [address] [place] [address] PCP - General Family Medicine 01/17/19 Jeancarlos Wolff MD [address] [facility] [place] [address] Gastroenterology 09/04/14 Land Surveyor Assistant Relationship Specialty Start Date End Date Chriss Cruz MD [address] [place] [address] PCP - General Family Medicine 01/17/19 Jeancarlos Wolff MD [address] [facility] [place] [place] [address] Gastroenterology 09/04/14 Land Surveyor Assistant Relationship Specialty Start Date End Date Chriss Cruz MD [address] [place] [address] PCP - General Family Medicine 01/17/19 Jeancarlos Wolff MD [address] [facility] [place] [address] Gastroenterology 09/04/14 Land Surveyor Assistant Relationship Specialty Start Date End Date Chriss Cruz MD [address] [place] [address] PCP - General Family Medicine 01/17/19 Jeancarlos Wolff MD [address] [place] [address] Gastroenterology 09/04/14 Land Surveyor Assistant Relationship Specialty Start Date End Date Chriss Cruz MD [address] [place] [address] PCP - General Family Medicine 01/17/19 Jeancarlos Wolff MD [address] [place] [address] Gastroenterology 09/04/14 Land Surveyor Assistant Relationship Specialty Start Date End Date Chriss Cruz MD [address] [place], [place] [address] PCP - General Family Medicine 01/17/19 Jeancarlos Wolff MD [address] [place] [address] Gastroenterology 09/04/14 Land Surveyor Assistant Relationship Specialty Start Date End Date Chriss Cruz MD [address] [place], [place] [id number] PCP - General Family Medicine 01/17/19 Jeancarlos Wolff MD [address] [place] [address] Gastroenterology 09/04/14 Team Status: Active [...] MD Admit Provider, Attending Provid er Active Land Surveyor Assistant Relationship Specialty Start Date End Date Chriss Cruz MD [address] [place] [address] PCP - General Family Medicine 01/17/19 Jeancarlos Wolff MD [address] [place] [address] Gastroenterology 09/04/14 Land Surveyor Assistant Relationship Specialty Start Date End Date Chriss Cruz MD [address] [place] [address] PCP - General Family Medicine 01/17/19 Jeancarlos Wolff MD [address] [place] [address] Gastroenterology 09/04/14 Land Surveyor Assistant Relationship Specialty Start Date End Date Chriss Cruz MD [address] [place] [address] PCP - General Family Medicine 01/17/19 Jeancarlos Wolff MD [address] [place] [address] Gastroenterology 09/04/14 Land Surveyor Assistant Relationship Specialty Start Date End Date Chriss Cruz MD [address] [place] [address] PCP - General Family Medicine 01/17/19 Jeancarlos Wolff MD [address] [place], [place] [address] Gastroenterology 09/04/14 Land Surveyor Assistant Relationship Specialty Start Date End Date Chriss Cruz MD [address] [place] [address] PCP - General Family Medicine 01/17/19 Jeancarlos Wolff MD [address] [place] [address] Gastroenterology 09/04/14 Land Surveyor Assistant Relationship Specialty Start Date End Date Chriss Cruz MD [address] [place] [address] PCP - General Family Medicine 01/17/19 Jeancarlos Wolff MD [address] [place] [address] Gastroenterology 09/04/14 Team Status: Inactive Member Role [...] Provider, Referring Provider Active Ashley Garrido NP, GEOLOGICAL TECHNICIAN-C Attending Provider Active Team Status: Inactive Member Role Status Dates Dr. Chriss Cruz MD Primary Care Provider, Referring Provider Active Dr. Aquiles Warren DO Attending Provider Active Team Status: Inactive Member Role Status Dates Dr. Chriss Cruz MD Primary Care Provider, Referring Provider Active Maureen Campbell NP, GEOLOGICAL TECHNICIAN-C Attending Provider Active Team Status: Inactive Member Role Status Dates Dr. Chriss Cruz MD Primary Care Provider Active Dr. Cash Dockery MD Attending Provider, Emergency Provider Active Team Status: Inactive Member Role Status Dates Dr. Chriss Cruz MD Primary Care Provider Active Dr. Jamaal Rm MD Attending Provider, Referri ng Provider Active Land Surveyor Assistant Relationship Specialty Start Date End Date Chriss Cruz MD [address] [place] [address] PCP - General Family Medicine 01/17/19 Jeancarlos Wolff MD [address] [place] [address] Gastroenterology 09/04/14 Land Surveyor Assistant Relationship Specialty Start Date End Date Chriss Cruz MD [address] [place] [address] PCP - General Family Medicine 01/17/19 Jeancarlos Wolff MD [address] [place] [address] Gastroenterology 09/04/14 Team Status: Active Member Role [...] Rm MD Other Provider Active Dr. Alfredo gA , DO Attending Provider Active Team Status: [...] Active Logan Harvey MD Emergency Provider Active Land Surveyor Assistant Relationship Specialty Start Date End Date Chriss Cruz MD [address] [place], [place] [address] PCP - General Family Medicine 01/17/19 Jeancarlos Wolff MD [address] [place], [place] [id number] Gastroenterology 09/04/14 Team Status: Active Member Role Status Dates Luciana Garcia , DO Primary Care Provider Active Dr. Aquiles Warren , DO Attending Provider, Referring Provider Active Land Surveyor Assistant Relationship Specialty Start Date End Date Chriss Cruz MD [address] [place] [address] PCP - General Family Medicine 01/17/19 Jeancarlos Wolff MD [address] [place], [place] [id number] Gastroenterology 09/04/14 Lindsay Wallace APRN.[employer] WORK[employer] [address] [place] [address] [employer] [facility] 08/05/24 Ilene Bhatia APRN.[employer]ODUCTION WORKER [address] [place] [address] [employer] Family Medicine 08/05/24 Land Surveyor Assistant Relationship Specialty Start Date End Date Chriss Cruz MD [address] [place], [place] [id number] PCP - General Family Medicine 01/17/19 Jeancarlos Wolff MD [address] [place], [place] [address] Gastroenterology 09/04/14 Lindsay Wallace APRN.[employer]LL PRODUCTION WORKER [address] [place] [address] [employer] [address] [facility] 08/05/24 Ilene Bhatia APRN.[employer]ODUCTION WORKER [address] [place] [address] [employer] [address] [facility] 08/05/24 Land Surveyor Assistant Relationship Specialty Start Date End Date Kimberlyn East MD [address] [place] [address] [place], [place] [id number] PCP - General Family Medicine 11/08/24 Land Surveyor Assistant Relationship Specialty Start Date End Date Kimberlyn East MD [address] [facility] [address] [place] [phone] PCP - General Family Medicine 11/08/24 Land Surveyor Assistant Relationship Specialty Start Date End Date Kimberlyn East MD [address] [facility] [address] [place] [id number] PCP - General Family Medicine 11/08/24 Land Surveyor Assistant Relationship Specialty Start Date End Date Chriss Cruz MD [address] [place] [address] PCP - General Family Medicine 01/17/19 Jeancarlos Wolff MD [address] [place] [address] Gastroenterology 09/04/14 Lindsay Wallace APRN.[employer] WORK[employer] [address] [place] [address] [facility]24 Ilene Bhatia APRN.[employer] WORK[employer] [address] [place], [place] [id number] Cyber [employer] Family [facility] 08/05/24 Land Surveyor Assistant Relationship Specialty Start Date End Date Chriss Cruz MD [address] [place], [place] [id number] PCP - General Family Medicine 01/17/19 Jeancarlos Wolff MD [address] [place] [address] Gastroenterology 09/04/14 Lindsay Wallace BUSINESS PROJECT MANAGER.[employer] WORK[employer] [address] [place] [address] [employer] [address] [facility] 08/05/24 Ilene Bhatia, BUSINESS PROJECT MANAGER.[employer] WORK[employer] [address] [place], [place] [id number] Cyber Security Family [facility] 08/05/24 Land Surveyor Assistant Relationship Specialty Start Date End Date Kimberlyn East MD PCP - General Family Medicine 11/08/24 Land Surveyor Assistant Relationship Specialty Start Date End Date Kimberlyn East MD PCP - General Family Medicine 11/08/24 Land Surveyor Assistant Relationship Specialty Start Date End Date Kimberlyn East MD PCP - General Family Medicine 11/08/24 Land Surveyor Assistant Relationship Specialty Start Date End Date Kimberlyn [...] April 21, 2025 End: April 21, 2025 Land Surveyor Assistant Relationship Specialty Start Date End Date Kimberlyn East MD PCP - General Family Medicine 11/08/24 Land Surveyor Assistant Relationship Specialty Start Date End Date Kimberlyn [...] 50% needed, contact pharmacy or obtain from [facility] cart ++ Group 2: Naloxone (NARCAN) injection [...] BE BASED ON THE PRIMARY CLINICAL RECORDS. [employer] provides no warranty or guarantee of the accuracy or completeness of information in this document.
[2025-08-22 09:59] LABS: Mucous, Urine 0 SEEN /hpf (<or=2+); Squamous Epithelial Cells - UA 0 SEEN /hpf (0-5)
[2025-08-22 10:01] LABS: Color, Urine Yellow (Yellow); Glucose, Dipstick 100 mg/dl (Normal); Ketone-Dipstick 5 mg/dl (Negative); Leukocyte Esterase-Dipstick 100 /ul (Negative); Nitrite-Dipstick Negative (Negative); Occult Blood-Urine 150 /ul (Negative); Protein-Dipstick 500 mg/dl (Negative); Specific Gravity, Urine 1.015 (1.002-1.030); Urine Bilirubin Dipstick Negative (Negative)
[2025-08-22 10:08] LABS: Red Blood Cells-Urine 5-10 SEEN /hpf (0-5)
[2025-08-22 10:12] LABS: Hematocrit 25.8 % (40-54); Hemoglobin 8.9 g/dL (13.0-16.5); Immature Granulocytes Count 0.090 X10^3/uL (0.0-0.0); Mean Corp Hgb Conc 34.5 g/dL (32-36); Mean Corpuscular Volume 98.9 fL (80-94); Mean Platelet Vol. 9.8 fl (6.2-12.0); NRBC Flagged by Analyzer 0 % (0-5); Platelet Count 129 K/mm3 (150-450); RBC Distribution Width CV 16.3 % (11.6-14.6); RBC Distribution Width SD 59.3 fl (35.1-43.9); Red Blood Count 2.61 M/mm3 (4.6-6.2); White Blood Count 11.9 K/mm3 (4.4-11.0)
[2025-08-22 10:29] LABS: Prothrombin Time (Protime)PT. 17.7 SECONDS (11.7-14.9)
[2025-08-22 10:30] LABS: Partial Thromboplast Time 36.3 Seconds (24.1-36.2)
[2025-08-22 10:39] LABS: Lipase 71 U/L (13-75)
[2025-08-22 10:41] LABS: AST(SGOT) 16 U/L (<=37); Alanine Aminotransfer ALT/SGPT 11 U/L (<=46); Albumin, Serum 4.3 g/dL (3.5-5.0); Alkaline Phosphatase 105 U/L (40-129); Anion Gap 17 (7-18); BUN 45 mg/dL (4-19); BUN/Creat Ratio 6.1 RATIO (10-20); Bilirubin, Direct 0.33 mg/dL (0.00-0.30); Calcium,Total 8.5 mg/dL (7.6-11.0); Carbon Dioxide 25.9 mmol/L (20.0-29.0); Chloride 91 mmol/L (96-106); Estimated Creatinine Clearance 12.15 ml/min (50-250); Globulin 3.2 g/dL (2.2-4.2); Glucose 191 mg/dL (70-99); Potassium 4.2 mmol/L (3.5-5.1)
--- NOTE | 2025-08-22 11:21 | HP.PCM.HOS_ITS ---
HPI - General General Date of Admission: 08/22/25 Date of Service: 08/22/25 Chief Complaint: urinary frequency, fever HPI Narrative REGINALDO HUFFMAN, is a 54 M with a PMH as outlined who was admitted via [facility] ED on 08.22.2025 with a complaint of fever and urinary symptoms. He was seen at the ED the day before this admission with blood in ihis urine. He had also experienced chills whilst at dialysis 2 dfays prior to this admission. He was diagnosed with UTI in the ED the day before admission and given a dose of antibiotics. He was discharged home with a course of oral antibiotics but said he felt worse at home so he came in to the ED. He admitted to nausea and right flank pain and also admitted to urinary frequency. He admitted to some hematuria. Review of systems is otherwise negative. Vitals in the ED were BP of 180/69, KS of 84, RR of 16 and temp of 98F as well as saturation of 98% on room air. CBC showed Hb of 8.9, wbc of 11.9 and platelets of 129. INR was 1.4. Chemistry shwoed sodium of 134, potassium of 4.2, bicarb of 25.9. Urinalysis showed 5-10 WBC. High-power field with no bacteria or nitrites.He is on hemodialysis which he usually goes for every Monday, and Monday. He did have CT of the abdomen and pelvis done when he presented on 08/21/2025 which showed bladder wall thickening which may represent cystitis and perinephric fat stranding without hydronephrosis or nephrolithiasis consistent with UTI as well as splenomegaly and neck and gastrosplenic varices concerning for portal hypertension and liver steatosis with colonic diverticulosis without evidence of acute diverticulitis. He is being admitted to be managed for UTI with probable pyelonephritis with failed outpatient treatment. [facility] Medical History Vascular dialysis catheter in place History of hemodialysis History of renal dialysis Hemodialysis patient Anemia due to chronic blood loss Positive fecal occult blood test Cancer Insulin dependent diabetes mellitus History of renal disease Low iron Easy bruising Wears glasses Arthritis Fatty liver Restless legs Former smoker Leg cramps History of edema History of stress test History of echocardiogram Syncope Hx of vertigo Therapeutic drug monitoring History of colon cancer Trigeminal nerve disorder portacath placement GERD (gastroesophageal reflux disease) High cholesterol Hepatitis C Depressive disorder Obesity Seizure disorder Asthma History of alcohol abuse Pancreatitis Sezary disease Home Medications ?Medication ?Instructions ?Recorded ?Last Taken ?Type cholecalciferol (vitamin D3) 25 1,000 unit PO TUTHSA s upplement 10/10/13 08/21/25 History mcg (1,000 unit) capsule sertraline 100 mg tablet 100 mg PO QHS depression 06/04/25 History multivitamin with folic acid 400 1 tab PO DAILY supple ment 10/21/14 11/13/15 History mcg tablet rosuvastatin 40 mg tablet 40 mg PO QHS cholesterol 07/23/24 01:00 History fish oil-dha-epa 1,200 mg-144 1 each PO DAILY suppleme nt 11/14/20 Unknown History mg-216 mg capsule albuterol sulfate 90 mcg/actuation 1 - 2 puff inhalati on Q4H PRN PRN 10/16/23 Unknown Rx aerosol inhaler (Ventolin HFA) Wheezing #1 inh gemfibrozil 600 mg tablet 600 mg PO BID pancreatitis 0 12/08/23 12/07/23 10:00 History prevention nadolol 40 mg tablet 40 mg PO BID heart 12/18/23 06/04/25 History calcitriol 0.5 mcg capsule 0.5 mcg PO DAILY bone healt h 05/30/24 08/21/25 History clonidine HCl 0.1 mg tablet 0.1 mg PO TID hypertension 06/12/24 07/23/24 History ergocalciferol (vitamin D2) 1,250 1,250 mcg PO MOWEFR VITAMIN 07/03/24 Unknown History mcg (50,000 unit) capsule aripiprazole 2 mg tablet 2 mg PO QHS mental health 08/21/25 History losartan 50 mg tablet 50 mg PO DAILY 30 days #30 t abs 07/10/24 07/23/24 01:00 Rx blood sugar diagnostic (OneTouch #100 ea 10/31/24 Unkn own Rx Verio test strips) blood-glucose meter (OneTouch #1 ea 10/31/24 Unknown R x Verio Reflect kit) pantoprazole 20 mg tablet,delayed 40 mg (2 x 20 mg) PO DAILY reflux 11/19/24 Unknown Rx release #90 TABLETS insulin glargine 100 unit/mL (3 25 unit (0.25 mL) subc ut ONCE 12/18/24 Unknown Rx mL) subcutaneous pen (Lantus diabetes #22.5 mL Solostar U-100 Insulin) pen needle, diabetic 31 gauge x #100 ea 12/18/24 Unkno wn Rx 5/16 (Comfort EZ Pen [place]) sucroferric oxyhydroxide 500 mg 500 mg PO QAC 05/07/25 Unknown History chewable tablet (Velphoro) clopidogrel 75 mg tablet (Plavix) 75 mg PO DAILY #30 t abs 06/04/25 Unknown Rx hydralazine 50 mg tablet 50 mg PO TID 06/04/25 History aspirin 81 mg tablet,delayed 81 mg PO QDAY 06/18/25 History release (Adult Aspirin Regimen) carbamazepine 200 mg tablet 600 mg (3 x 200 mg) PO BID 06/30/25 08/21/25 Rx seizures #540 tabs gabapentin 300 mg capsule 300 mg PO BID #180 caps 11/19 Unknown Rx trazodone 50 mg tablet 50 mg PO QHS PRN insomnia #9 0 tabs 06/30/25 Unknown Rx cholestyramine 4 gram oral powder 4 g PO QHS #231 GMS 07/29/25 Unknown Rx (Cholestyramine Light) insulin lispro 100 unit/mL 18 unit (0.18 mL) subcut TI D #60 mL 08/15/25 Unknown Rx subcutaneous pen (Admelog SoloStar U-100 Insulin lispro) Allergy/AdvReac Type Severity Reaction Status Date / Time doxazosin (From Cardura) Allergy Severe Bleeding Verified 08/22/25 08:45 erythromycin base Allergy Severe Hives Verified 08/22/25 08:45 loratadine (From Claritin) Allergy Severe Rash Verified 08/22/25 08:45 amlodipine AdvReac nausea/diar Verified 08/22/25 08:45 darryl/dizzin ess Family History Grandmother Cervical cancer Diabetes Hypertension Trigeminal neuralgia Mother Uterine cancer Arthritis Diabetes Hypertension Grandfather Heart disease Arthritis Diabetes Hypertension Unknown Diabetes Arthritis Father Arthritis Diabetes Hypertension Sister Diabetes Hypertension Uncle CVA (cerebral vascular accident) Aunt Cerebral aneurysm Surgical History Hx of esophagogastroduodenoscopy Hx of appendectomy H/O left hemicolectomy Social History Smoking Status: Former smoker Tobacco: How many years used: 20 how long ago did patient quit smoking: quit 2003 second hand exposure: No alcohol intake: former details: quit 2003 substance use type: former substance user Date of last use: Used Marijuana since he was a teenager ROS Constitutional Constitutional: Reports chills, fatigue, malaise and weakness; Denies anorexia or fever(s) Eyes Eyes: Denies change in vision ENT HEENT: Denies dysphagia, headache(s) or sore throat Cardiovascular Cardiovascular: Denies chest pain, dyspnea on exertion, edema, lightheadedness, orthopnea, palpitations, rapid heart rate or syncope Respiratory/Chest Respiratory/Chest: Denies cough, dyspnea, productive cough, shortness of breath at rest or shortness of breath with exertion Gastrointestinal Gastrointestinal: Reports abdominal pain; Denies constipation, diarrhea, nausea or vomiting Genitourinary Genitourinary: Reports dysuria and hematuria Musculoskeletal Musculoskeletal: Denies arthralgias or back pain Neurologic Neurologic: Denies confusion, dizziness, focal weakness, headache(s), numbness, paresthesias, seizures or syncope Psychiatric Psychiatric: Denies anxiety or depression Patient's Goals Of Care . What would you like to achieve or improve as a result of your hospital stay?: to feel better Vital Signs Vital Signs Vital Signs: 08/22/25 08:43 08/22/25 08:44 08/22/25 09:44 Temperature 98.0 F 98.0 F 98 F Temperature Source Oral Oral Oral Pulse Rate 63 63 84 Respiratory Rate 18 18 16 Blood Pressure 169/74 H 169/74 H 180/69 H Blood Pressure Mean 105 105 106 Pulse Ox 100 100 98 Oxygen Delivery Method Room Air Room Air Weight Weight: 197 lb 5.019 oz Body Mass Index (BMI) 29.9 Physical Exam Const alert and oriented x3 General Appearance: cooperative HEENT normocephalic, head/scalp atraumatic and hearing grossly normal bilaterally HEENT Narrative: dry oral mucosa Eyes EOMs intact bilaterally and conjunctivae normal Neck supple and no JVD Resp Resp Narrative: mildly diminished breath sounds bibasally, no wheezes or crackles. On room air. Cardio regular rate, regular rhythm, S1 normal heart sound, S2 normal heart sound and no murmurs GI normal to inspection, nondistended, normoactive bowel sounds, soft to palpation and non-tender GI Narrative: right costophrenic angle tenderness Extremity normal to inspection, full ROM and no clubbing, cyanosis or edema Neuro oriented x3, CN's II-XII intact bilaterally, moves all extremities and no focal motor deficits Sensorium / Orientation: awake and alert Motor Exam: strength 5/5 throughout Psych affect normal Results Lab / Micro Data 08/22/25 10:00 08/22/25 10:00 Labs: Laboratory Results - last 24 hr 08/22/25 09:56: Urine Color Yellow, Urine Clarity Sl. Cloudy, Urine pH 8.0, Ur Specific [place] 1.015, Urine Protein 500 H, Urine Glucose (UA) 100 H, Urine Ketones 5 H, Urine Occult Blood 150 H, Urine Nitrite Negative, Urine Bilirubin Negative, Urine Urobilinogen Normal, Ur Leukocyte Esterase 100 H, Urine RBC 5-10 SEEN, Urine WBC 5-10 SEEN, Ur Squamous Epith Cells 0 SEEN, Urine Bacteria 0 SEEN, Urine Mucus 0 SEEN 08/22/25 10:00: WBC 11.9 H, RBC 2.61 L, Hgb 8.9 L, Hct 25.8 L, MCV 98.9 H, MCH 34.1 H, MCHC 34.5, RDW Std Deviation 59.3 H, RDW Coeff of Ever 16.3 H, Plt Count 129 L, MPV 9.8, Immature Gran % (Auto) 0.800, Neut % (Auto) 83.7 H, Lymph % (Auto) 9.6 L, [place] % (Auto) 5.5, Eos % (Auto) 0.2, Baso % (Auto) 0.2, Absolute Neuts (auto) 9.9 H, Absolute Lymphs (auto) 1.14, Nucleated RBC % 0, PT 17.7 H, INR 1.4, APTT 36.3 H, Sodium 134 L, Potassium 4.2, Chloride 91 L, Carbon Dioxide 25.9, Anion Gap 17, BUN 45 H, Creatinine 7.38 H, Estim Creat Clear Calc 12.15 L, Est GFR (MDRD) Non-Af 8 L, BUN/Creatinine Ratio 6.1 L, Glucose 191 H, Lactic Acid < 1.0, Calcium 8.5, Total Bilirubin 0.57, Direct Bilirubin 0.33 H, AST 16, ALT 11, Alkaline Phosphatase 105, Total Protein 7.5, Albumin 4.3, Globulin 3.2, Lipase 71 Assessment & Plan Assessment/Plan (1) Pyelonephritis: PLAN: Plan #UTI with pyelonephritis * Admit to [facility]. * Was seen in the ED on for complaints of hematuria and burning with urination. Urinalysis showed evidence of UTI and CT of the abdomen and pelvis also showed some perinephric stranding. He was discharged home on p.o. Keflex but felt worse when he called home and so came back. * WBC is up to 11.9. Will repeat CT of the abdomen and pelvis as he had 1 just the day before admission. * Will start on IV ceftriaxone. Get blood and urine cultures. * Hold off on hydration with IV fluids as patient has ESRD. P.o. Tylenol for fever and pain. P.o. oxycodone as needed for breakthrough pain. * #ESRD * On hemodialysis Tuesdays and Saturdays. Last had dialysis on Monday, when his dialysis day was moved up due to the holiday * consult nephrology * On calcitriol * # Type 1 diabetes mellitus: * On Lantus 25 units nightly. Insulin sliding scale. Accu-Cheks ACHS. #Nonalcoholic fatty liver disease: #Hypertension: on losartan and hydralazine #History of hepatitis C: stable #Depression: On aripiprazole and sertraline #Hyperlipidemia: On gemfibrozil and statin DVT prophylaxis: lovenox, renally dosed Code status:full code * Patient counseled extensively about different types of CODE STATUS including full code, DNR CCA and DNR CCA. Patient elects to be full code. * Total [id number] time 16 minutes. Charges/Coding Visit Charges Inpatient E&M: 13947 Init Hosp L3 Procedures Hospitalists Procedures: 24370 Advncd Care Plan 30 Min
--- OUTSIDE RECORDS SUMMARY | 2025-08-22 13:40 | XMS RPT_ITS | CCD ---
Author Organization [facility] Care Team Providers Care Procurement Accountant Name Role Phone Jeancarlos Wolff MD Unavailable Chriss Cruz MD Primary Care Provider Dr. Chriss Cruz Primary Care Provider Dr. Chriss Cruz Referring Provider Skip BODS DEVELOPER, SERGE Karimi Attending Provider Jeancarlos Wolff MD [...] Attending Provider SERGE Timmons Attending Provider Shannan BODS DEVELOPER, BODS DEVELOPER-C Maureen Attending Provider FriendDr. Kwan Attending Provider Jeancarlos Wolff MD [facility] Trevin, Dr. Judd Primary Care Provider [place], Dr. Judd Referring Provider Shannan OWUSU, FRANCOISE-Abram Reddy Attending Provider SERGE Timmons Attending Provider [facility] Dr. Samuel Attending Provider Dr. Robb Paulson Attending Provider FriendDr. Kwan Attending Provider [phone] FriendDr. Kwan Other Provider DO Luciana Garcia Primary Care Provider DO Luciana Garcia Referring Provider Trevin, Dr. Judd Primary Care Provider [place], Dr. Judd Referring Provider Dr. Chriss Cruz Primary Care Provider [place], Dr. Judd Referring Provider Dr. Robb Paulson Attending Provider Dr. Aquiles Warren Attending Provider [phone] Dr. Aquiles Warren Other Provider [phone] DO Luciana Garcia Primary Care Provider DO Luciana Garcia Referring Provider Stacey, Dr. Samuel Attending Provider DO Luciana Garcia Primary Care Provider DO Luciana Garcia Referring Provider 1([facility])[phone] Dr. Chriss Cruz Referring Provider 1([facility])[phone] ASHER TimmonsC Grisel Attending Provider 1([facility])[phone] Dr. Kirk Schneider Emergency Provider 1([facility])[phone] Dr. Landry Barber Admit Provider Unavailabl e Dr. Landry Barber Other Provider Unavailabl e Dr. Jamaal Rm Other Provider 1([facility])[phone] Dr. Alfredo Ag Attending Provider 1([facility])[phone] Dr. Alfredo Ag Other Provider 1([facility])[phone] Kelvin, Dr. Kwan Attending Provider 1([facility])[phone] Chriss Cruz MD Primary Care Provider 1([facility])[phone] Haagen ENVELOPE ADDRESSER.TABLE GAMES FLOOR SUPERVISOR, Lindsay Unavailable Suppan ENVELOPE ADDRESSER.TABLE GAMES FLOOR SUPERVISOR, Ilene A Unavailable [phone] Kimberlyn East MD Primary Care Provider 1([facility])[phone] Suppan ENVELOPE ADDRESSER.TABLE GAMES FLOOR SUPERVISOR, Ilene A Unavailable Kita GARCIA, Kimberlyn Primary Care Provider Unavailabl e Kita GARCIA, Kimberlyn Primary Care Provider Kita GARCIA, Kimberlyn Primary Care Provider 1([facility])[phone] Dr. Kirk Fernandez MD Attending Provider 1([facility])[phone] Dr. Kirk Fernandez MD Referring Provider 1([facility])[phone] Dr. Kirk Fernandez MD Other Provider 1([facility])[phone] Chriss Cruz MD Primary Care Provider 1([facility] )[phone] Dr. Chriss Cruz MD Referring Provider 1([facility])[phone] Dr. Jimmie Ibarra MD Attending Provider 1([facility])[phone] Dr. Radha Kelley DO Other Provider 1([facility])[phone] Kimberlyn East MD Referring Provider 1([facility])[phone] Iain BODS DEVELOPER-C, Grisel Attending Provider 1([facility])[phone] Cynthia Valera Attending Provider 1([facility])[phone] Kimberlyn East MD Primary Care Provider [...] Care Unavailable ANISA, TYRESE S Attending Unavailable ANIAS, TYRESE S Referring Unavailable KITA, CHALON Primary Care Unavailable ANISA, TYRESE S Attending Unavailable ANISA, TYRESE S Referring Unavailable Kita, Chalon Primary Care Unavailable Robb Paulson Attending Unavailable Robb Paulson Referring Unavailable Kita, Chalon Primary Care Unavailable [place], Kirk Referring Unavailable [place], Kirk Attending Unavailable Kita, Chalon Primary Care [...] Primary Care Unavailable Hutchins, Cynthia Referring Unavailable [place] Kirk Attending Unavailable Kita, Chalon Primary Care [...] Attending Unavailable Kita, Chalon Primary Care Unavailable [place], Kirk Referring Unavailable [place], Kirk Attending Unavailable Kita, Chalon Primary Care Unavailable Oswald Leahy Admitting Unavailable Oswald Leahy Attending Unavailable Benton Bundy Attending Unavailable Fabrizio Tripp Referring Unavailable Kita, Chalon Primary Care Unavailable Jim, Kirk Attending Unavailable Jim, Kirk Referring Unavailable [place], Kirk Consulting Unavailable Kita, Chalon Primary Care Unavailable Landry Barber Referring Unavailable Friend, Aquiles Attending Unavailable Kita, Chalon Primary Care Unavailable [place], Kirk Referring Unavailable [place], Kirk Consulting Unavailable Jim, Kirk Attending Unavailable Kita, Chalon Primary Care Unavailable [place], Kirk Attending Unavailable Jim, Kirk Referring Unavailable [place], Kirk Consulting Unavailable Darren Bernal Attending Unavailable [...] Referring Unavailable Kita, Chalon Primary Care Unavailable [place], Kirk Attending Unavailable Kita, Chalon Referring Unavailable [...] Chalon Referring Unavailable Prah Jimmie Attending Unavailable [place], Chriss Primary Care Unavailable [place], Chriss Referring Unavailable Radha Kelley Consulting Unavailable [...] Facility (20 sources) Erythromycin Drug Allergy 5 [facility] (20 sources) Loratadine Drug Allergy 5 [facility] (20 sources) Homeopathic Products Propensity to adverse reactions 5 [facility] Work Phone: (20 sources) Lisinopril Drug Allergy 2 Other: See Comments [facility] Work Phone: (20 sources) amLODIPine Drug Allergy 2 Swelling [facility] Work Phone: (18 sources) Doxazosin Drug Allergy 3 Bleeding [facility] (10 sources) Doxazosin Drug Allergy 5 Diarrhea, Headache, Bleeding [facility] (10 sources) empagliflozin Drug Allergy 5 Shortness of Breath, Nausea Only [facility] (10 sources) Loratadine Propensity to adverse reactions to drug 6 Confusion [facility] (1 source) amLODIPine Drug Allergy 5 [facility] (1 source) Doxazosin Drug Allergy 5 [facility] (1 source) Loratadine Drug Allergy 5 [facility] (1 source) erythromycin base Drug allergy (disorder) 5 [facility] Medications Current Medications Medication Drug Class(es) Dates Sig (Normalized) Sig (Original) [id number] 200 actuat albuterol 0.09 mg/actuat metered dose [...] on above: Take 2 tablets by [facility] once daily. aspirin 81 mg delayed release [...] 11, 2013 8:22am take 1 tablet by [facility] twice daily carBAMazepine XR 400 MG Tab SR 12 HR Indications: Liver lesion , Malignant neoplasm of colon, unspecified part of colon Take 200 mg by mouth 2 times daily. Active Comment on above: Take 3 tablets by [facility] twice daily. cholecalciferol 0.025 mg ora l capsule (20 sources) Vitamin D Start: 10-10-2013 Start: 10-10-2013 take 1000 [IU] by [facility] once daily Cholecalciferol (Vitamin D3) Active 1000 UNIT PO DAILY October 10, 2013 1:00am Start: 08-09-2013 take 1 capsule by [facility] every other day Cholecalciferol, Vitamin D3, 25 mcg (1,000 unit) cap Take 1 capsule by mouth every other day 08/09/2013 Active Comment on above: Take 1 capsule by [facility] every other day sugar-free cholestyramine resin 4000 [...] Comment on above: [facility] Fish Oil-Dha-Epa (19 [...] Start: 11-14-2020 take 1 capsule by [facility] once daily Start: 11-14-2020 take 1 capsule by mo [facility] once daily Start: 11-14-2020 take 1 capsule by [facility] once daily Fish Oil-Dha-Epa 1 EACH capsule Active 1 NMA PO DAILY November 14, 2020 12:00am supplement Start: 11-14-2020 take 1 capsule by [facility] once daily Fish Oil-Dha-Epa 1 EACH capsule [...] Comment on above: Take 1 capsule by [facility] three times daily for 30 days. take 1 capsule by [facility] three times a day gemfibrozil 600 mg oral tablet (20 sources) Peroxisome Proliferator Receptor alpha Agonist Start: 12-08-2023 take 1 tablet by mouth twice daily Start: 10-13-2021 End: 10-06-2023 take 1 tablet by mouth twice daily gemfibrozil (LOPID) 600 mg tablet Take 1 tablet by mouth twice daily. 180 tablet 3 10/06/2022 Active Comment on above: Take 1 tablet by [facility] twice daily. hydrALAZINE hydrochloride 50 mg [...] on above: Take 1 capsule by [facility] once daily. Multivitamin With Folic Acid (19 [...] PO DAILY October 21, 2014 1:00am omega 1-wkb-qcb-fish oil 300-400-1,000 mg cap (20 sources) Start: 10-07-2019 take 300-400 capsules by mouth once daily omega 3-dwa-hvy-fish oil 300-400-1,000 mg cap Take 1 capsule by mouth once daily. 30 capsule 11 10/07/2019 Active Comment on above: Take 1 capsule by [facility] once daily. predniSONE 20 mg oral tablet (1 source) Start: 08-22-2022 End: 08-27-2022 take 2 tablets by mouth once daily predniSONE (DELTASONE) 20 mg tablet Take 2 tablets by mouth once daily for 5 days. 10 tablet 0 08/22/2022 08/27/2022 Active Comment on above: Take 2 tablets by [facility] once daily for 5 days. pyridoxine (10 [...] on above: Take 1 capsule by [facility] once daily. Completed/Discontinued Medications Medication Drug Class(es) [...] on above: Take 1 capsule by [facility] three times daily as needed for cough [...] on above: Take 1 capsule by mo [facility] three times daily. Dextrose 50% injection 7.5-25 [...] Comment on above: Take 1 tablet by [facility] once daily. ferrous fumarate 18 mg [...] minutes based on response and tolerability. 2 [place] 1 12/10/2020 02/01/2023 Discontinued (Other) Comment on [...] on above: Take 1 capsule by [facility] daily before breakfast. 1/2 hr before meal. [...] (Tegretol)on 08-30-2024 CARBAMAZEPINE 2.8 ug/mL Low 4.0-12.0 [facility] Comment on above: Performed By: #### L 501.7900 ####[facility] [address] [place], [address] Neurology Visit Reporton Neurology Visit Report Normal [facility] Serum or plasma carbamazepin e level (mass/volume)Ordered By: Robb Paulson on 06-30-2025 carBAMazepine [Mass/Vol] 2.8 ug/mL Low 4.0-12.0 [facility] MR/BMS.BVSon 06-25-2025 MR/BMS.BVS Normal [facility] Endocrinology Visit Reporton 06-18-2025 Endocrinology Visit Report Normal [facility] Operative Reporton 5 Operative Report Normal [facility] PRA CLASS (PRE-TRANSPLANT)on 05-15-2025 AB SPECIFICITY CLASS COMMENT Antibody Specificity testing performed by [employer] Methodology. cPRA calculation based on identification of HLA antibody specificities at MFI >2000 and/or presence of CREG antibodies. Normal [facility] Comment on above: Order Comment: RELEA [...] need for FDA approval.Testing performed by the [facility] Clinical Histocompatibility Laboratory. [facility] number: [id number]. CLIA number: [id number], Director: Sage Domingo, PhD, F([facility]). Performed By: #### C A199 #### [facility] (DEFAULT) [address] [address] CLASS I SPECIFICITIES Not detected Normal [facility] Comment on above: Order Comment: RELEA SED BY LAB ONLY Performed By: #### C A199 #### [facility] (DEFAULT) [address] [address] CLASS II SPECIFICITIES Not detected Normal [facility] Comment on above: Order Comment: RELEA SED BY LAB ONLY Performed By: #### C A199 #### [facility] (DEFAULT) [address] [address] cPRA 0 % Normal 0 [facility] Comment on above: Order Comment: RELEA SED BY LAB ONLY Performed By: #### C A199 #### [facility] (DEFAULT) [address] [address] Gastroenterology Visit Repor ton 05-07-2025 Gastroenterology Visit Report Normal [facility] CT ABDOMEN WITH AND WITHOUT CONTRASTon [...] have reviewed and approved this report. Normal [facility] Duplex ultrasound of carotid artery reportOrdered By: Kirk Fernandez on 05-05-2025 Study report [facility] [address] [place] [address] Carotid Duplex Ultrasound 05/02/25 0907 MR#: [id number] Acct: [id number] Name: HUFFMANREGINALDO NUÑEZ Rep #:[id number] : 1970 54 From: Kirk Marítnez Attending Dr: Dr. Robb Paulson MD Status: REG CLI Ordering Dr: Robb Paulson MD Date: 05/02/25 Location: [facility] Sex: M C Admitted: Reason For [...] the left vertebral artery. Procedure Carotid Duplex 52935. This is a Carotid Duplex examination using [...] ~ Date Dictated: 05/02/25906 Date Transcribed: 05/05/251226 Retail Project Merchandiser: Signed [facility] Work Phone: Anion gap in Serum or Plasma Ordered By: Kimberlyn East on 05-02-2025 Anion gap [Moles/Vol] 14 mmol/L 5-15 [facility] BUN/creatinine ratioOrdered By: Kimberlyn East on 05-02-2025 Urea nitrogen/Creatinine [Mass ratio] 5.5 mg/mg Low 10-20 [facility] Bilirubin, totalOrdered By: Kimberlyn East on 05-02-2025 Bilirubin [Mass/Vol] 0.41 mg/dL 0.00-1.30 [facility] CBC-Complete Blood Cnt No Di ffon 05-02-2025 Erythrocyte distribution width (RBC) [Ratio] 16.3 % High 11.6-14.6 [facility] Comment on above: Order Comment: Order Date: 04/25/25Order Info: [id number] - CBC Performed By: #### L 500.4100, L500.4050, L501.9910, L100.0500 ####[facility] [address] [place], [place], [id number] Hematocrit (Bld) [Volume fraction] 29.7 % Low 40-54 [facility] Comment on above: Order Comment: Order Date: 04/25/25Order Info: [id number] - CBC Performed By: #### L 500.4100, L500.4050, L501.9910, L100.0500 ####[facility] [address] [place], [address] Hemoglobin (Bld) [Mass/Vol] 10.4 g/dL Low 13.0-16.5 [facility] Comment on above: Order Comment: Order Date: 04/25/25Order Info: [id number] - CBC Performed By: #### L 500.4100, L500.4050, L501.9910, L100.0500 ####[facility] [address] [place], [address] MCH (RBC) [Entitic mass] 35.1 pg High 27.0-32.0 [facility] Comment on above: Order Comment: Order Date: 04/25/25Order Info: [id number] - CBC Performed By: #### L 500.4100, L500.4050, L501.9910, L100.0500 ####[facility] [address] [place], [address] MCHC (RBC) [Mass/Vol] 35.0 g/dL Normal 32-36 [facility] Comment on above: Order Comment: Order Date: 04/25/25Order Info: [id number] - CBC Performed By: #### L 500.4100, L500.4050, L501.9910, L100.0500 ####[facility] [address] [place], [address] MCV (RBC) [Entitic vol] 100.3 fL High 80-94 [facility] Comment on above: Order Comment: Order Date: 04/25/25Order Info: [id number] - CBC Performed By: #### L 500.4100, L500.4050, L501.9910, L100.0500 ####[facility] [address] [place], [address] Platelet mean volume (Bld) [Entitic vol] 10.6 fL Normal 6.2-12.0 [facility] Comment on above: Order Comment: Order Date: 04/25/25Order Info: [id number] - CBC Performed By: #### L 500.4100, L500.4050, L501.9910, L100.0500 ####[facility] [address] [place], [address] Platelets (Bld) [#/Vol] 137 10*3/uL Low 150-450 [facility] Comment on above: Order Comment: Order Date: 04/25/25Order Info: [id number] - CBC Performed By: #### L 500.4100, L500.4050, L501.9910, L100.0500 ####[facility] [address] [place], [address] RBC (Bld) [#/Vol] 2.96 10*6/uL Low 4.6-6.[address] [facility] Comment on above: Order Comment: Order Date: 04/25/25Order Info: [id number] - CBC Performed By: #### L 500.4100, L500.4050, L501.9910, L100.0500 ####[facility] [address] [place], [address] RDW SD 60.0 fl High 35.1-43.9 [facility] Comment on above: Order Comment: Order Date: 04/25/25Order Info: [id number] - CBC Performed By: #### L 500.4100, L500.4050, L501.9910, L100.0500 ####[facility] [address] [place], [address] WBC (Bld) [#/Vol] 4.0 10*3/uL Low 4.4-11.0 [facility] Comment on above: Order Comment: Order Date: 04/25/25Order Info: [id number] - CBC Performed By: #### L 500.4100, L500.4050, L501.9910, L100.0500 ####[facility] [address] [place], [address] Calculated very low density lipoprotein (VLDL) cholesterol measurementOrdered By: Kimberlyn East on 05-02-2025 Calculated very low density lipoprotein (VLDL) cholesterol measurement 83 mg/dL High 5-40 [facility] Carbon dioxide, total [Moles /volume] in Central venous bloodOrdered By: Kimberlyn East on 05-02-2025 CO2 [Moles/Vol] 25.9 mmol/L 21.0-32.0 [facility] Carotid Duplex Ultrasoundon 05-02-2025 Carotid Duplex Ultrasound Normal [facility] Chloride assayOrdered By: Estephanie East on 05-02-2025 Chloride [Moles/Vol] 95 mmol/L Low 98-108 [facility] Comprehensive Metabolic Prof ilon 05-02-2025 Albumin [Mass/Vol] 4.3 g/dL Normal 3.5-5.0 [facility] Comment on above: Order Comment: Order Date: 04/25/25Order Info: [id number] - CMPOrder Info: [id number] - LIPIDOrder Info: [id number] - PSA Performed By: #### L 500.4100, L500.4050, L501.9910, L100.0500 ####[facility] [address] [place], [address] Albumin/Globulin [Mass ratio] 1.4 {ratio} Normal 0.9-2.4 [facility] Comment on above: Order Comment: Order Date: 04/25/25Order Info: [id number] - CMPOrder Info: [id number] - LIPIDOrder Info: [id number] - PSA Performed By: #### L 500.4100, L500.4050, L501.9910, L100.0500 ####[facility] [address] [place], [address] ALK PHOS 114 U/L Normal 40-129 [facility] Comment on above: Order Comment: Order Date: 04/25/25Order Info: [id number] - CMPOrder Info: [id number] - LIPIDOrder Info: [id number] - PSA Performed By: #### L 500.4100, L500.4050, L501.9910, L100.0500 ####[facility] [address] [place], [address] ALT [Catalytic activity/Vol] 8 U/L Normal <=46 [facility] Comment on above: Order Comment: Order Date: 04/25/25Order Info: [id number] - CMPOrder Info: [id number] - LIPIDOrder Info: [id number] - PSA Performed By: #### L 500.4100, L500.4050, L501.9910, L100.0500 ####[facility] [address] [place], [address] AST [Catalytic activity/Vol] 11 U/L Normal <=37 [facility] Comment on above: Order Comment: Order Date: 04/25/25Order Info: [id number] - CMPOrder Info: [id number] - LIPIDOrder Info: [id number] - PSA Performed By: #### L 500.4100, L500.4050, L501.9910, L100.0500 ####[facility] [address] [place], [address] Bilirubin [Mass/Vol] 0.41 mg/dL Normal 0.00-1.30 [facility] Comment on above: Order Comment: Order Date: 04/25/25Order Info: [id number] - CMPOrder Info: [id number] - LIPIDOrder Info: [id number] - PSA Performed By: #### L 500.4100, L500.4050, L501.9910, L100.0500 ####[facility] [address] [facility] [place], [address] BUN/CRE 5.5 RATIO Low 10-20 [facility] Comment on above: Order Comment: Order Date: 04/25/25Order Info: [id number] - CMPOrder Info: [id number] - LIPIDOrder Info: [id number] - PSA Performed By: #### L 500.4100, L500.4050, L501.9910, L100.0500 ####[facility] [address] [place], [address] Calcium [Mass/Vol] 9.0 mg/dL Normal 7.6-11.0 [facility] Comment on above: Order Comment: Order Date: 04/25/25Order Info: [id number] - CMPOrder Info: [id number] - LIPIDOrder Info: [id number] - PSA Performed By: #### L 500.4100, L500.4050, L501.9910, L100.0500 ####[facility] [address] [place], [address] Chloride [Moles/Vol] 95 mmol/L Low 98-108 [facility] Comment on above: Order Comment: Order Date: 04/25/25Order Info: [id number]- - CMPOrder Info: [id number] - LIPIDOrder Info: [id number] - PSA Performed By: #### L 500.4100, L500.4050, L501.9910, L100.0500 ####[facility] [address] [place], [address] CO2 [Moles/Vol] 25.9 mmol/L Normal 21.0-32.0 [facility] Comment on above: Order Comment: Order Date: 04/25/25Order Info: [id number] - CMPOrder Info: [id number] - LIPIDOrder Info: [id number] - PSA Performed By: #### L 500.4100, L500.4050, L501.9910, L100.0500 ####[facility] [address] [facility] [place], [address] Creatinine [Mass/Vol] 5.57 mg/dL High 0.70-1.20 [facility] Comment on above: Order Comment: Order Date: 04/25/25Order Info: [id number] - CMPOrder Info: - LIPIDOrder Info: [id number] - PSA Performed By: #### L 500.4100, L500.4050, L501.9910, L100.0500 ####[facility] [address] [place], [address] GAP 14 Normal 5-15 [facility] Comment on above: Order Comment: Order Date: 04/25/25Order Info: [id number] - CMPOrder Info: - LIPIDOrder Info: [id number] - PSA Performed By: #### L 500.4100, L500.4050, L501.9910, L100.0500 ####[facility] [address] [place], [address] GFR/1.73 sq M.predicted among non-blacks MDRD (S/P/Bld) [Vol rate/Area] 11 mL/min/{1.73_m2} Low >60 [facility] Comment on above: Order Comment: Order Date: 04/25/25Order Info: [id number] - CMPOrder Info: - LIPIDOrder Info: [id number] - PSA Result Comment: mL/m in/1.73m2 CKD-EPI Creatinine Equation (2020) Performed By: #### L 500.4100, L500.4050, L501.9910, L100.0500 ####[facility] [address] [place], [address] Globulin (S) [Mass/Vol] 3.1 g/dL Normal 2.2-4.2 [facility] Comment on above: Order Comment: Order Date: 04/25/25Order Info: [id number] - CMPOrder Info: - LIPIDOrder Info: [id number] - PSA Performed By: #### L 500.4100, L500.4050, L501.9910, L100.0500 ####[facility] [address] [place], [address] Glucose [Mass/Vol] 203 mg/dL High 70-99 [facility] Comment on above: Order Comment: Order Date: 04/25/25Order Info: [id number] - CMPOrder Info: [id number] - LIPIDOrder Info: [id number] - PSA Performed By: #### L 500.4100, L500.4050, L501.9910, L100.0500 ####[facility] [address] [place], [address] Potassium [Moles/Vol] 4.7 mmol/L Normal 3.3-5.1 [facility] Comment on above: Order Comment: Order Date: 04/25/25Order Info: [id number] - CMPOrder Info: [id number] - LIPIDOrder Info: [id number] - PSA Performed By: #### L 500.4100, L500.4050, L501.9910, L100.0500 ####[facility] [address] [place], [address] Sodium [Moles/Vol] 135 mmol/L Normal 133-145 [facility] Comment on above: Order Comment: Order Date: 04/25/25Order Info: [id number] - CMPOrder Info: [id number] - LIPIDOrder Info: [id number] - PSA Performed By: #### L 500.4100, L500.4050, L501.9910, L100.0500 ####[facility] [address] [place], [address] T PROT 7.4 g/dL Normal 5.9-8.4 [facility] Comment on above: Order Comment: Order Date: 04/25/25Order Info: [id number] - CMPOrder Info: [id number] - LIPIDOrder Info: [id number] - PSA Performed By: #### L 500.4100, L500.4050, L501.9910, L100.0500 ####[facility] [address] [place], [address] Urea nitrogen [Mass/Vol] 30 mg/dL High 4-19 [facility] Comment on above: Order Comment: Order Date: 04/25/25Order Info: [id number] - CMPOrder Info: [id number] - LIPIDOrder Info: [id number] - PSA Performed By: #### L 500.4100, L500.4050, L501.9910, L100.0500 ####[facility] [address] [place], [address] Erythrocyte distribution wid th ratioOrdered By: Kimberlyn East on 05-02-2025 Erythrocyte distribution width (RBC) [Ratio] 16.3 % High 11.6-14.6 [facility] Erythrocyte distribution wid th standard deviationOrdered By: Kimberlyn East on 05-02-2025 Erythrocyte distribution width (RBC) [Ratio] 60.0 fl High 35.1-43.9 [facility] Glomerular filtration rate ( GFR) estimation/1.73 sq m using serum, plasma, or whole bOrdered By: Kimberlyn East on 05-02-2025 GFR/1.73 sq M.predicted among non-blacks MDRD (S/P/Bld) [Vol rate/Area] 11 mL/min/{1.73_m2} Low >60 [facility] Comment on above: mL/min/1.73m2 CKD-EP I Creatinine Equation (2020) Hematocrit Auto (Bld) [Volum e fraction]Ordered By: Kimberlyn East on 05-02-2025 Hematocrit (Bld) [Volume fraction] 29.7 % Low 40-54 [facility] Hemoglobin A1con 05-02-2025 HbA1c (Bld) [Mass fraction] 7.0 % High <=5.6 [facility] Comment on above: Order Comment: Order Date: 04/25/25Order Info: [id number] - A1C Result Comment: Norm al < 5.7 % Prediabetic 5.7 - 6.4 % Diabetic >or= 6.5 % Please note range changes. Performed By: #### L 501.9960 ####[facility] [address] [place], [place], [id number] Hemoglobin A1c percentageOrd ered By: Kimberlyn East on 05-02-2025 HbA1c (Bld) [Mass fraction] 7.0 % High <5.7 [facility] Comment on above: Normal < 5.7 % Predi abetic 5.7 - 6.4 % Diabetic >or= 6.5 % Please note range changes. Hemoglobin measurementOrdere d By: Kimberlyn East on 05-02-2025 Hemoglobin (Bld) [Mass/Vol] 10.4 g/dL Low 13.0-16.5 [facility] LDL calc ser/plasOrdered By: Kimberlyn East on 05-02-2025 Cholesterol in LDL [Mass/Vol] 50 mg/dL [facility] Comment on above: Bobmpjudpb=888-414 m g/dL & Higher Fhsz=306 mg/dL or greaterFriedwald Equation for LDL-C Laboratory - Chemistry and C hemistry - challengeOrdered By: Kimberlyn East on 05-02-2025 AST [Catalytic activity/Vol] 11 U/L <38 [facility] Lipid Profileon 05-02-2025 CHOL:HDL 4.60 Normal [facility] Comment on above: Order Comment: Order Date: 04/25/25Order Info: [id number] - CMPOrder Info: [id number] - LIPIDOrder Info: [id number] - PSA Performed By: #### L 500.4100, L500.4050, L501.9910, L100.0500 ####[facility] [address] [place], [place], [address] Cholesterol [Mass/Vol] 169 mg/dL Normal <=200 [facility] Comment on above: Order Comment: Order Date: 04/25/25Order Info: [id number] - CMPOrder Info: [id number] - LIPIDOrder Info: [id number] - PSA Result Comment: Chol esterol level, Desirable <200 mg/dLBorderline high cholesterol 200-239 mg/dLHigh cholesterol >=240 mg/dLRecommendations of the NCEP Adult Treatment Panel for thefollowing risk-cutoff thresholds for the [place] Americanpopulation. Performed By: #### L 500.4100, L500.4050, L501.9910, L100.0500 ####[facility] [address] [place], [address] Cholesterol in HDL [Mass/Vol] 37 mg/dL Low [facility] Comment on above: Order Comment: Order Date: 04/25/25Order Info: [id number] - CMPOrder Info: [id number] - LIPIDOrder Info: [id number] - PSA Result Comment: Nikky onal Cholesterol Education Program (NCEP) guidelines:<40 mg/dL: Low HDL-cholesterol (major risk factor for CHD)>= 60 mg/dL: High HDL-cholesterol (negative risk factor forCHD)HDL-cholesterol is affected by a number of factors, e.g.smoking, exercise, hormones, sex and age. Performed By: #### L 500.4100, L500.4050, L501.9910, L100.0500 ####[facility] [address] [place], [address] Cholesterol in LDL [Mass/Vol] 50 mg/dL Normal [facility] Comment on above: Order Comment: Order Date: 04/25/25Order Info: [id number] - CMPOrder Info: - LIPIDOrder Info: [id number] - PSA Result Comment: Bord fqplhy=950-202 mg/dL Higher Yakq=284 mg/dL or greaterFriedwald Equation for LDL-C Performed By: #### L 500.4100, L500.4050, L501.9910, L100.0500 ####[facility] [address] [place], [address] Cholesterol in VLDL [Mass/Vol] 83 mg/dL High 5-40 [facility] Comment on above: Order Comment: Order Date: 04/25/25Order Info: [id number] - CMPOrder Info: - LIPIDOrder Info: [id number] - PSA Performed By: #### L 500.4100, L500.4050, L501.9910, L100.0500 ####[facility] [address] [place], [address] Triglyceride [Mass/Vol] 414 mg/dL High [facility] Comment on above: Order Comment: Order Date: 04/25/25Order Info: [id number] - CMPOrder Info: [id number] - LIPIDOrder Info: [id number] - PSA Result Comment: The drugs N-Acetylcysteine and Metamizole may falselydepress this assay.Normal range: <150 mg/dLBorderline High: 150-199 mg/dLHigh: 200-499 mg/dLVery High: >500 mg/dL Performed By: #### L 500.4100, L500.4050, L501.9910, L100.0500 ####[facility] [address] [place], [address] MCV (mean corpuscular volume ) determinationOrdered By: Kimberlyn East on 05-02-2025 MCV (RBC) [Entitic vol] 100.3 fL High 80-94 [facility] Mean corpuscular hemoglobin (MCH) determinationOrdered By: Kimberlyn East on 05-02-2025 MCH (RBC) [Entitic mass] 35.1 pg High 27.0-32.0 [facility] Mean corpuscular hemoglobin concentration (MCHC) determinationOrdered By: Kimberlyn East on 05-02-2025 MCHC (RBC) [Mass/Vol] 35.0 g/dL 32-36 [facility] Mean platelet volume determi nationOrdered By: [facility]ie [facility] on 05-02-2025 Platelet mean volume (Bld) [Entitic vol] 10.6 fL 6.2-12.0 [facility] PSA,Total - Annual Screenon 05-02-2025 PSA,TOT SCREEN 0.64 ng/mL Normal 0.02-4.00 [facility] Comment on above: Order Comment: Order Date: 04/25/25Order Info: [id number] - CMPOrder Info: [id number] - LIPIDOrder Info: [id number] - PSA Result Comment: This test was performed using the [facility] tPSAmethod. Measured values of a patient??sample can varydepending on the testing procedure used. PSA valuesdetermined on patient samples by different testingprocedures cannot be used interchangeably. If there is achange in PSA assays while monitoring therapy, sequentialtesting should be performed to confirm baseline values. Performed By: #### L 500.4100, L500.4050, L501.9910, L100.0500 ####[facility] [address] [place], [address] Platelet countOrdered By: Estephanie East on 05-02-2025 Platelets (Bld) [#/Vol] 137 10*3/uL Low 150-450 [facility] Potassium measurement (mass/ volume)Ordered By: Kimberlyn East on 05-02-2025 Potassium (Unsp spec) [Mass/Vol] 4.7 mmol/L 3.3-5.1 [facility] RBC Auto (Bld) [#/Vol]Ordere d By: Kimberlyn East on 05-02-2025 RBC (Bld) [#/Vol] 2.96 10*6/uL Low 4.6-6.[address] [facility] Screening total cholesterol/ high density lipoprotein (HDL) cholesterol ratioOrdered By: Kimberlyn East on 05-02-2025 Cholesterol.total/Arin sterol in HDL [Mass ratio] 4.60 {ratio} [facility] Serum creatinine measurement (mass/volume)Ordered By: Kimberlyn East on 05-02-2025 Creatinine [Mass/Vol] 5.57 mg/dL High 0.70-1.20 [facility] Serum globulin measurementOr dered By: Kimberlyn East on 05-02-2025 Globulin (S) [Mass/Vol] 3.1 g/dL 2.2-4.2 [facility] Serum glucose measurement (m ass/volume)Ordered By: Kimberlyn East on 05-02-2025 Glucose [Mass/Vol] 203 mg/dL High 70-99 [facility] Serum or plasma alanine meng otransferase (ALT) measurementOrdered By: Kimberlyn East on 05-02-2025 ALT [Catalytic activity/Vol] 8 U/L <47 [facility] Serum or plasma albumin abhi urement (mass/volume)Ordered By: Kimberlyn East on 05-02-2025 Albumin [Mass/Vol] 4.3 g/dL 3.5-5.0 [facility] Serum or plasma albumin/glob ulin mass ratioOrdered By: Kimberlyn East on 05-02-2025 Albumin/Globulin [Mass ratio] 1.4 {ratio} 0.9-2.4 [facility] Serum or plasma alkaline jaspreet sphatase measurementOrdered By: Kimberlyn East on 05-02-2025 ALP [Catalytic activity/Vol] 114 U/L 40-129 [facility] Serum or plasma calcium abhi urement (mass/volume)Ordered By: Kimberlyn East on 05-02-2025 Calcium [Mass/Vol] 9.0 mg/dL 7.6-11.0 [facility] Serum or plasma cholesterol in HDL measurement (mass/volume)Ordered By: Kimberlyn East on 05-02-2025 Cholesterol in HDL [Mass/Vol] 37 mg/dL Low >40 [facility] Comment on above: National Cholesterol Education Program (NCEP) guidelines:<40 mg/dL: Low HDL-cholesterol (major risk factor for CHD)>= 60 mg/dL: High HDL-cholesterol (negative risk factor for CHD)HDL-cholesterol is affected by a number of factors, e.g. smoking, exercise, hormones, sex and age. Serum or plasma cholesterol measurement (mass/volume)Ordered By: Kimberlyn East on 05-02-2025 Cholesterol [Mass/Vol] 169 mg/dL <201 [facility] Comment on above: Cholesterol level, D esirable <200 mg/dLBorderline high cholesterol 200-239 mg/dLHigh cholesterol >=240 mg/dLRecommendations of the NCEP Adult Treatment Panel for the following risk-cutoff thresholds for the [place] Indian population. Serum or plasma urea nitroge n measurement (mass/volume)Ordered By: Kimberlyn East on 05-02-2025 Urea nitrogen [Mass/Vol] 30 mg/dL High 4-19 [facility] Sodium levelOrdered By: Aura East on 05-02-2025 Sodium [Moles/Vol] 135 mmol/L 133-145 [facility] Total proteinOrdered By: Lynn East on 05-02-2025 Protein [Mass/Vol] 7.4 g/dL 5.9-8.4 [facility] Triglycerides measurementOrd ered By: Kimberlyn East on 05-02-2025 Triglyceride [Mass/Vol] 414 mg/dL High <199 [facility] Comment on above: The drugs N-Acetylcy steine and Metamizole may falsely depress this assay. Normal range: <150 mg/dLBorderline High: 150-199 mg/dLHigh: 200-499 mg/dLVery High: >500 mg/dL White blood cell (WBC) count Ordered By: Kimberlyn East on 05-02-2025 WBC (Bld) [#/Vol] 4.0 10*3/uL Low 4.4-11.0 [facility] AFP TUMOR MARKERon AFP Tumor Marker <2.2 Normal <8.1 [facility] Comment on above: Result Comment: This test was performed on the [employer] IM Immunoassay platform by Siemens which is a two-site sandwich chemiluminescent immunoassay. It is important to note that assays using different manufacturers and/or methods may not be comparable. Performed By: #### A RUMA #### [facility] (DEFAULT) [address] [place] [address] CA 19-9on 04-23-2025 Cancer Ag 19-9 Qn 16.15 [arb'U]/mL NINF - 37.00 U/mL [facility] Comment on above: This test was perfor med on the Siemens Atellica IM Immunoassay platform which is a 2-step sandwich chemiluminescent immunoassay. It is important to note that assays using different manufacturers and/or methods may not be comparable. Interpretation and review of laboratory results Normal [facility] CA 19-9 16.15 U/mL Normal <=37.00 [facility] Comment on above: Result Comment: This test was performed on the Siemens Atellica IM Immunoassay platform which is a 2-step sandwich chemiluminescent immunoassay. It is important to note that assays using different manufacturers and/or methods may not be comparable. Performed By: #### C A199 #### [facility] (DEFAULT) [facility] [place] [id number] HEPATIC FUNCTION PANELon Albumin [Mass/Vol] 4.8 g/dL 3.5 - 5.0 g/dL [facility] ALP [Catalytic activity/Vol] 100 U/L 32 - 126 U/L [facility] ALT [Catalytic activity/Vol] 5 U/L Low 10 - 52 U/L [facility] AST [Catalytic activity/Vol] 8 U/L Low 10 - 39 U/L [facility] Bilirubin [Mass/Vol] 0.4 mg/dL NINF - 1.5 mg/dL [facility] Bilirubin.direct [Mass/Vol] 0.1 mg/dL NINF - 0.3 mg/dL [facility] Interpretation and review of laboratory results Abnormal [facility] Protein [Mass/Vol] 8.1 g/dL 6.4 - 8.3 g/dL [facility] Albumin [Mass/Vol] 4.8 g/dL Normal 3.5-5.0 [facility] Comment on above: Performed By: #### A RUMA #### [facility] (DEFAULT) [address] [place] [address] ALP [Catalytic activity/Vol] 100 U/L Normal 32-126 [facility] Comment on above: Performed By: #### A RUMA #### [facility] (DEFAULT) [address] [place] [address] ALT [Catalytic activity/Vol] 5 U/L Low 10-52 [facility] Comment on above: Performed By: #### A RUMA #### [facility] (DEFAULT) [address] [place] [address] AST [Catalytic activity/Vol] 8 U/L Low 10-39 [facility] Comment on above: Performed By: #### A RUMA #### [facility] (DEFAULT) [address] [place] [address] Bilirubin [Mass/Vol] 0.4 mg/dL Normal <1.5 [facility] Comment on above: Performed By: #### A RUMA #### [facility] (DEFAULT) [address] [address] Bilirubin.indirect [Mass/Vol] 0.1 mg/dL Normal <0.3 [facility] Comment on above: Performed By: #### A RUMA #### [facility] (DEFAULT) [address] [address] Protein [Mass/Vol] 8.1 g/dL Normal 6.4-8.3 [facility] Comment on above: Performed By: #### A RUMA #### [facility] (DEFAULT) [address] [address] Neurology Visit Reporton Neurology Visit Report Normal [facility] AV Fistula/Dialysis Graft Sc anon 03-03-2025 AV Fistula/Dialysis Graft Scan Normal [facility] Arterial study reportOrdered By: Kirk Fernandez on 03-03-2025 Noninvasive arteriosclerosis study report [facility] [address] 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 Attending physician(s): Marshal Paris MD Trainee physician(s): [...] the wire, following sequential dilatation, a 10 Serbian sheath was placed. Over the wire, using [...] Dr. Deann (more content not included)... Normal [facility] TRANSCATHETER BIOPSYon 01-28 TRANSCATHETER BIOPSY Examination: IR TRANSCATHETER BIOPSY, IR HEPATIC WEDGE PRESSURE/VENO, 01/27/2025 13:22 PM Clinical History: Male, 54 years old with history of K74.00:Hepatic fibrosis (accession [id number]), K74.00:Hepatic fibrosis (accession [id number]). Attending physician(s): Marshal Paris MD Trainee physician(s): [...] the wire, following sequential dilatation, a 10 Serbian sheath was placed. Over the wire, using [...] Dr. Deann (more content not included)... Normal [facility] GLUCOSE POCon 01-27-2025 Glucose [Mass/Vol] 187 mg/dL High 70 - 179 mg/dL [facility] Interpretation and review of laboratory results Abnormal [facility] POC Sample Type VENO [facility] Test performed at address of the patient encounter. [facility] POTASSIUMon 01-27-2025 Interpretation and review of laboratory results Abnormal [facility] Potassium [Moles/Vol] 5.6 mmol/L High 3.5 - 5.0 mmol/L [facility] Potassium [Moles/Vol] 5.6 mmol/L High 3.5-5.0 [facility] Comment on above: Performed By: #### A RIGOBERTOH #### [facility] (DEFAULT) [address] [place] [address] SURG PATH REQUESTon 01-28-20 Case Report [facility] Comment on above: Result Comment: Surg ical Pathology Report Case: [id number] Authorizing Provider: Devonte James MD Collected: 01/27/2025 12:53 PM Ordering Location: [facility] Received: 01/27/2025 01:44 PM Hospital Pathologist: RYANNE Ortiz Specimen: Liver, needle/wedge biopsy Performed By: #### S URGP #### [facility] (DEFAULT) [address] [place] [address] Clinical History Clinical History: Li marylin biopsy. [facility] Comment on above: Performed By: #### S URGP #### [facility] (DEFAULT) [address] [place] [address] Gross Description Normal [facility] Comment on above: Result Comment: The specimen is received in one properly labeled container with the patient's name and accession number. A. The specimen is designated liver biopsy and consists of four cores of gunn-red soft tissue which range from 0.4 to 1.7 cm in length with an average diameter of less than 0.1 cm. TE 2 Lab Use Only: JobID [id number] Grosser for this case was: Clint Cooper Performed By: #### S URGP #### [facility] (DEFAULT) [address] [place] [address] Microscopic Description Normal [facility] Comment on above: Result Comment: A mi croscopic examination was performed. All controls show appropriate reactivity. All immunohistochemistry (IHC), in situ hybridization (LISETH), and histochemical tests were developed by and are performed at the [facility] Clinical Laboratory, Histology and IHC Lab, [address] [place] [address]. All Immunofluorescent (IF) tests were developed by and are performed at the [facility] Clinical Laboratory, Renal Division, [address] [place] [address]. All tests reported here, except for PD-L1, have not been cleared by or approved by the US Food and Drug Administration (FDA). The laboratory is regulated under CLIA as qualified to perform high-complexity testing. The tests are used for clinical purposes. They should not be regarded as investigational or for research. Performed By: #### S URGP #### [facility] (DEFAULT) [address] [place] [address] Pathologic Diagnosis Normal [facility] Comment on above: Result Comment: Lizeth [...] EDT Performed By: #### S URGP #### [facility] (DEFAULT) [address] [place] [address] Professional Interpretation Performed at: Normal [facility] Comment on above: Result Comment: [facility] For Immediate Release to Patient's [facility]? Yes [address] [address] Performed By: #### S URGP #### [facility] (DEFAULT) [address] [address] KENNETH SCREEN IFAon 12-25-2024 Antinuclear Antibody, IFA Negative Normal Negative [facility] Comment on above: Performed By: #### H SVG12 #### [facility] (DEFAULT) [address] [address] ANTI MITOCHONDRIAL ANTIBODYo n 12-25-2024 Anti-Mitochondrial Antibody Negative Normal Negative [facility] Comment on above: Performed By: #### C A199 #### [facility] (DEFAULT) [address] [address] ANTI SMOOTH MUSCLE ANTIBODYo n 12-25-2024 Smooth Muscle Antibody Positive Abnormal Negative [facility] Comment on above: Performed By: #### C A199 #### [facility] (DEFAULT) [address] [address] Smooth Muscle Antibody, Quant 1:40 Abnormal (none) [facility] Comment on above: Performed By: #### C A199 #### [facility] (DEFAULT) [address] [address] FERRITINon 12-25-2024 Ferritin [Mass/Vol] 627.9 ng/mL High 10.5 - 3 07.3 ng/mL [facility] Interpretation and review of laboratory results Abnormal [facility] Ferritin [Mass/Vol] 627.9 ng/mL High 10.5-307.3 [facility] Comment on above: Performed By: #### F ERIB #### [facility] (DEFAULT) [address] [address] HEPATIC FUNCTION PANELon Albumin [Mass/Vol] 4.5 g/dL 3.5 - 5.0 g/dL [facility] ALP [Catalytic activity/Vol] 73 U/L 32 - 126 U/L [facility] ALT [Catalytic activity/Vol] 8 U/L Low 10 - 52 U/L [facility] AST [Catalytic activity/Vol] 11 U/L 10 - 39 U/L [facility] Bilirubin [Mass/Vol] 0.4 mg/dL NINF - 1.5 mg/dL [facility] Bilirubin.direct [Mass/Vol] 0.1 mg/dL NINF - 0.3 mg/dL [facility] Interpretation and review of laboratory results Abnormal [facility] Protein [Mass/Vol] 8 g/dL 6.4 - 8.3 g/dL [facility] Albumin [Mass/Vol] 4.5 g/dL Normal 3.5-5.0 [facility] Comment on above: Performed By: #### H SVG12 #### [facility] (DEFAULT) [address] [place] [address] ALP [Catalytic activity/Vol] 73 U/L Normal 32-126 [facility] Comment on above: Performed By: #### H SVG12 #### [facility] (DEFAULT) [address] [place] [address] ALT [Catalytic activity/Vol] 8 U/L Low 10-52 [facility] Comment on above: Performed By: #### H SVG12 #### [facility] (DEFAULT) [address] [place] [address] AST [Catalytic activity/Vol] 11 U/L Normal 10-39 [facility] Comment on above: Performed By: #### H SVG12 #### [facility] (DEFAULT) [address] [place] [address] Bilirubin [Mass/Vol] 0.4 mg/dL Normal <1.5 [facility] Comment on above: Performed By: #### H SVG12 #### [facility] (DEFAULT) [address] [place] [address] Bilirubin.indirect [Mass/Vol] 0.1 mg/dL Normal <0.3 [facility] Comment on above: Performed By: #### H SVG12 #### [facility] (DEFAULT) [address] [place] [address] Protein [Mass/Vol] 8.0 g/dL Normal 6.4-8.3 [facility] Comment on above: Performed By: #### H SVG12 #### [facility] (DEFAULT) [address] [place] [address] HEPATITIS A AB, TOTAL (IGG+I GM)Ordered By: Maxi Enriquez on 12-25-2024 HAV IgG+IgM Ql (S) Negative Negative [facility] Interpretation and review of laboratory results Normal [facility] HEPATITIS A AB, TOTAL (IGG+I GM)on 12-25-2024 Hep A Ab, (IgG+IgM) Negative Normal Negative [facility] Comment on above: Performed By: #### A LCOSU #### [facility] (DEFAULT) [address] [place] [address] IMMUNOGLOBULINS IGG IGA IGMo n 12-25-2024 IgA [Mass/Vol] 168 mg/dL 66 - 433 mg/dL [facility] IgG [Mass/Vol] 1239 mg/dL 600 - 1714 mg/dL [facility] IgM [Mass/Vol] 111 mg/dL 45 - 281 mg/dL [facility] Interpretation and review of laboratory results Normal [facility] IgA [Mass/Vol] 168 mg/dL Normal 66-433 [facility] Comment on above: Performed By: #### A RUMA #### [facility] (DEFAULT) [address] [place] [address] IgG [Mass/Vol] 1239 mg/dL Normal 600-1714 [facility] Comment on above: Performed By: #### A RUMA #### [facility] (DEFAULT) [address] [place] [address] IgM [Mass/Vol] 111 mg/dL Normal 45-281 [facility] Comment on above: Performed By: #### A RUMA #### [facility] (DEFAULT) [address] [place] [address] IRON/IRON BINDING/TRANSFERRI Non 12-25-2024 Interpretation and review of laboratory results Normal [facility] Iron [Mass/Vol] 93 ug/dL [facility] Iron binding capacity [Mass/Vol] 318 [facility] Iron saturation [Mass fraction] 29 % 20 - 55 % [facility] Transferrin [Mass/Vol] 254 mg/dL 200 - 400 mg/dL [facility] Iron [Mass/Vol] 93 ug/dL Normal 40-174 [facility] Comment on above: Performed By: #### H [id number] #### [facility] (DEFAULT) [address] [address] Iron Saturation 29 % Normal 20-55 [facility] Comment on above: Performed By: #### H [id number] #### [facility] (DEFAULT) [address] [address] Total Iron Binding Capacity 318 mcg/dL Normal 250-425 [facility] Comment on above: Performed By: #### H [id number] #### [facility] (DEFAULT) [address] [address] Transferrin [Mass/Vol] 254 mg/dL Normal 200-400 [facility] Comment on above: Performed By: #### H [id number] #### [facility] (DEFAULT) [address] [address] No Panel Informationon 12-25 [facility] PHOSPHATIDYLETHANOL (PETH), WHOLE BLOOD QUANTITATIVEon 12-25-2024 PEth 16:0/18:1 (POPEth) <10 Normal Cutoff: 10 [facility] Comment on above: Result Comment: Phos phatidylethanol [...] Sci) Performed By: #### S URGP #### [facility] (DEFAULT) [address] [address] PEth 16:0/18:2 (PLPEth) <10 Normal Cutoff: 10 [facility] Comment on above: Result Comment: PEth 16:0/18:2 (PLPEth) Reference ranges are not well established Performed By: #### S URGP #### [facility] (DEFAULT) [address] [address] PHOSPHATIDYLETHANOL (PETH), WHOLE BLOOD QUANTITATIVE Negative Normal [facility] Comment on above: Result Comment: ADDITIONAL INFORMATION This report is intended for use in clinical monitoring and management of patients. It is not intended for use in employment-related testing. This test was developed and its performance characteristics determined by [facility] in a manner consistent with CLIA requirements. This test has not been cleared or approved by the U.S. Food and Drug Administration. Test Performed by: [facility] [place] [place] [address] Limnology Teacher: Ananth Novoa Ph.D.; CLIA# [id number] Performed By: #### S URGP #### [facility] (DEFAULT) [address] [address] MR/BMS.BVSon 12-20-2024 MR/BMS.BVS Normal [facility] Endocrinology Visit Reporton 12-18-2024 Endocrinology Visit Report Normal [facility] Laboratory - Hematology and Cell countsOrdered By: Grisel Timmons on 12-18-2024 HbA1c (Bld) [Mass fraction] 6.3 % 4.2-6.3 [facility] NUC MYOCARD PERF STRESS MIBI PHARMon [...] from the original result were not included. [facility] Facility [facility] Patient Information Patient Name Reginaldo Huffman [...] Role Read Date Davida Souza MD ECG [place], SPECT Gorham, Test Java Developer Analyst 12/13/2024 Stress Measurements Baseline Vitals-Supine Baseline HR [...] [facility] NUC MED , [facility] NUCLEAR MED CARDIOLOGY [facility] Begin Exam End Exam End Exam Questionnaires 12/13/2024 7:25 AM 12/13/2024 11:00 AM PERFORMING STAFF END EXAM NUC MED INFILTRATE INFORMATION CONTRAST REACTION INFORMATION Vitals Height Weight BSA (Calculated - sq m) BP Pulse 1.727 m (5' 8) 88.9 kg (196 lb) 2.03 m2 166/85 63 Imaging Contrast/Medications: Technetium tc 99m sestamibi (SEST (more content not included)... Normal [facility] SPECT Heart perfusion at res t and W stress and W radionuclide IVOrdered By: Davida Souza on 12-13-2024 % APHRMAX 46 % [facility] Work Phone: APHRMAX 164 bpm [facility] Work Phone: Baseline DBP 85 mmHg [facility] Work Phone: Baseline HR 63 bpm [facility] Work Phone: Baseline SBP 166 mmHg [facility] Work Phone: Body surface area Derived from formula 2.03 m2 [facility] Work Phone: Exercise duration (min) 4 min [facility] Work Phone: Nuc Stress EF 50 % [facility] Work Phone: Peak DBP 68 mmHg [facility] Work Phone: Peak HR 75 bpm [facility] Work Phone: Peak SBP 165 mmHg [facility] Work Phone: Rate Pressure Product [id number] [facility] Work Phone: [facility] Work Phone: SPECT Heart perfusion at [...] 0.00% The left ventricular perfusion is normal. [facility] Radiology Study observation (narrative) [facility] CT ANGIO ABDOMINAL AORTA WIT H RUNOFFon [...] and ancillary findings as described above. Normal [facility] CTA Abdominal Aorta and Bila teral [...] tissue and ancillary findings as described above. [facility] Radiology Study observation (narrative) [facility] CTA Abdominal Aorta and Bila teral Runoff Vessels W contrast IVOrdered By: Devonte James on 12-11-2024 [facility] Work Phone: Cardiac echo study Procedure Ordered By: Carlos Sarmiento on 12-11-2024 Ao ASC index 1.77 cm/m2 [facility] Work Phone: Ao peak martinez 1.74 m/s [facility] Work Phone: Ao SOV index 1.67 cm/m2 [facility] Work Phone: Ao STJ index 1.32 cm/m2 [facility] Work Phone: Ao VTI 40.01 cm [facility] Work Phone: Ascending [facility] 3.[facility] Work Phone: AV LVOT peak gradient 4 mmHg [facility] Work Phone: AV mean gradient 7 [facility]: AV peak gradient 12 mmHG [facility] Work Phone: AV valve area 2.14 cm2 [facility] Work Phone: AV Velocity Ratio 0.55 [facility] Work Phone: GENESIS (continuity Vmax) 2.1 cm2 [facility] Work Phone: GENESIS (continuity VTI) 2.14 cm2 [facility] Work Phone: GENESIS index (continuity Vmax) 1.03 m/s [facility] Work Phone: GENESIS index (continuity VTI) 1.06 cm2/m2 [facility] Work Phone: Avg e' pk martinez 0.09 m/s [facility] Work Phone: Avg E/e' ratio 13.74 [facility] Work Phone: Body surface area Derived from formula 2.03 m2 [facility] Work Phone: BP EF 49 % [facility] Work Phone: DI (Vmax) 0.55 [facility] Work Phone: DI (VTI) 0.56 m/2 [facility] Work Phone: E wave decelartion time 229.29 msec [facility] Work Phone: e' lateral pk martinez 0.1154 m/s [facility] Work Phone: e' lateral pk martinez 0.12 m/s [facility] Work Phone: e' septal pk martinez 0.0684 m/s [facility] Work Phone: e' septal pk martinez 0.07 m/s [facility] Work Phone: E/A ratio 1.79 [facility] Work Phone: E/e' lateral ratio 10.23 [facility] Work Phone: E/e' septal ratio 17.25 [facility] Work Phone: EF SP 2CH 51 [facility] Work Phone: EF SP 4CH 46 [facility] Work Phone: EST RAP 8 mmHg [facility] Work Phone: EST RVSP 35 mmHg [facility] Work Phone: FS 22 % [facility] Work Phone: IVC ostium 2.37 cm [facility] Work Phone: IVS 0.99 cm [facility] Work Phone: LA AREA 2CH 25.45 cm2 [facility] Work Phone: LA area 4CH 24.97 cm2 [facility] Work Phone: LA ESV BP (MOD) 84 mL [facility] Work Phone: LA ESV BP (MOD) index 41 mL/m2 [facility] Work Phone: LA ESV SP 2CH (MOD) 84 mL [facility] Work Phone: [phone] LA ESV SP 4CH (MOD) 80 mL [facility] Work Phone: LV EDV BP 255 mL [facility] Work Phone: [phone] LV EDV SP 2CH 265 mL [facility] Work Phone: [phone] LV EDV SP 4CH 245 mL [facility] Work Phone: LV ESV BP 131 mL [facility] Work Phone: LV ESV SP 2CH 130 mL [facility] Work Phone: LV ESV SP 4CH 133 mL [facility] Work Phone: LV mass 252.33 g [facility] Work Phone: LV Mass Index 124.3 g/m2 [facility] Work Phone: LV RWT 0.39 [facility] Work Phone: LV stroke volume BP (ml) 124 mL [facility] Work Phone: LV stroke volume index BP 61.08 mL/m2 [facility] Work Phone: LVIDD 5.81 cm [facility] Work Phone: LVIDS 4.53 cm [facility] Work Phone: LVOT area 3.8 cm2 [facility] Work Phone: LVOT diameter 2.2 cm [facility] Work Phone: LVOT peak martinez 0.96 m/s [facility] Work Phone: LVOT peak VTI 22.58 cm [facility] Work Phone: LVOT stroke volume 86 cm3 [facility] Work Phone: LVOT stroke volume index 42.26 ml/m2 [facility] Work Phone: MV mean gradient [address] [facility] Work Phone: MV pk A martinez 0.66 m/s [facility] Work Phone: MV pk E martinez 1.18 m/s [facility] Work Phone: MV stenosis pressure 1/2 time 66.5 ms [facility] Work Phone: MV valve area by continuity eq 2.4 cm2 [facility] Work Phone: MV valve area p 1/2 method 3.31 cm2 [facility] Work Phone: MV VTI 35.68 cm [facility] Work Phone: MVA (continuity VTI) 2.4 cm [facility] Work Phone: OSU AV VTI RATIO PRE STRESS 0.56 [facility] Work Phone: [facility] ECHO LV BIPLANE SYSTOLIC VOLUME INDEX 64.53 mL/m2 [facility] Work Phone: [facility] ECHO LV BP DIASTOLIC VOLUME INDEX 125.62 mL/m2 [facility] Work Phone: [facility] RVOT VTI RATIO 0.64 [facility] Work Phone: PV mean gradient [address] [facility] Work Phone: PV peak gradient 6 mmHg [facility] Work Phone: PV PK MARTINEZ 1.24 m/s [facility] Work Phone: PV VTI 28.27 cm [facility] Work Phone: PW 1.13 cm [facility] Work Phone: RA vol index 4CH (MOD) 28.57 mL/m2 [facility] Work Phone: Right atrium volume 4 chamber method of disks 58 mL [facility] Work Phone: RV Area diastolic 27.18 cm2 [facility] Work Phone: RV Area systolic 16.33 cm2 [facility] Work Phone: RV basal diam 4.67 cm [facility] Work Phone: RV Fractional area change 39.9 % [facility] Work Phone: RV long diam 9.27 cm [facility] Work Phone: RV mid diam 3.39 cm [facility] Work Phone: RV S' 14.37 cm/s [facility] Work Phone: RVOT peak gradient 2 mmHg [facility] Work Phone: RVOT peak martinez 0.69 m/s [facility] Work Phone: RVOT peak VTI 18.1 cm [facility] Work Phone: Sinus 3.38 cm [facility] Work Phone: STJ 2.68 cm [facility] Work Phone: Stroke Volume 86 cm/mL [facility] Work Phone: Stroke volume index 42 [facility] Work Phone: TAPSE 2.1 cm [facility] Work Phone: TR pk grad 27 mmHg [facility] Work Phone: TR pk martinez 2.62 m/s [facility] Work Phone: [facility] Work Phone: Cardiac echo study [...] The left ventricular wall motion is normal. [facility] Radiology Study observation (narrative) [facility] ECHOCARDIOGRAMon 12-11-2024 Echocardiography The left ventricular chamber size and systolic function are normal. LVEF 55-60%. Grade II diastolic dysfunction. The right ventricular chamber size and systolic function are normal. There is no hemodynamically significant valvular disease. Estimated RVSP 35 mmHg. Table formatting from the original result was not included. Images from the original result were not included. [facility] Patient Information Patient Name Reginaldo Huffman [...] Role Read Date Carlos Sarmiento MD Echo Gorham 12/11/2024 Wall Scoring Score Index: 1.00 The [...] Valve Stenosi (more content not included)... Normal [facility] CNCOon 11-29-2024 CNCO Letter Text Normal [facility] CNPAngelica 11-29-2024 CNPN Telephone (TXCTGL) -------- REGINALDO HUFFMAN ([id number]) 1970 M Date Time Provider Department 11/29/24 DIONE LOVE TXCTGL During your visit today, we recorded the following information about you: Allergies As of Date: 11/29/2024 Noted Allergy Reaction AMLODIPINE 11/30/2021 7 - Swelling Comments: Uncomfortable swelling CLARITIN (LORATADINE) 05/09/2005 4 - Hives ERYTHROMYCIN 05/09/2005 Comments: Spacey Feeling HAYFEVER (HOMEOPATHIC PRODUCTS) 04/15/2005 Date Reviewed: 06/23/2023 Reviewed by: Candy Penn APRN.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 - omega 1-fks-pcj-fish oil 300-400-1,000 mg cap Take 1 capsule [...] 02/15/2022 [facility] (more content not included)... 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 - omega 6-rwp-oec-fish oil 300-400-1,000 mg cap Take 1 capsule [...] 01/26/2022 [facility] (more content not included)... Normal [facility] ABO/RH(D) TYPINGon ABO/RH(D) TYPE Positive [facility] ABO/RH(D) TYPE Positive Normal [facility] Comment on above: Performed By: #### A BORLaurie #### [facility] (DEFAULT) [address] [place] [address] ALBUMINon 11-08-2024 Albumin [Mass/Vol] 4.3 g/dL 3.5 - 5.0 g/dL [facility] Albumin [Mass/Vol] 4.3 g/dL Normal 3.5-5.0 [facility] Comment on above: Performed By: #### H [id number] #### [facility] (DEFAULT) [address] [place] [address] ALCOHOL (ETHANOL),BLOODOrder ed By: Tresa Nava on 11-08-2024 Ethanol Ql (Bld) mg/dL NINF - 10 mg/dL [facility] Interpretation and review of laboratory results Normal [facility] ALCOHOL (ETHANOL),BLOODon Alcohol, Serum <10 Normal <10 [facility] Comment on above: Performed By: #### A LCOSU #### [facility] (DEFAULT) [address] [place] [address] ALP ALT Vilma 11-08-2024 ALP [Catalytic activity/Vol] 57 U/L 32 - 126 U/L [facility] ALT [Catalytic activity/Vol] 6 U/L Low 10 - 52 U/L [facility] AST [Catalytic activity/Vol] 10 U/L 10 - 39 U/L [facility] ALP [Catalytic activity/Vol] 57 U/L Normal 32-126 [facility] Comment on above: Performed By: #### H [id number] #### [facility] (DEFAULT) [address] [place] [address] ALT [Catalytic activity/Vol] 6 U/L Low 10-52 [facility] Comment on above: Performed By: #### H [id number] #### [facility] (DEFAULT) [address] [place] [address] AST [Catalytic activity/Vol] 10 U/L Normal 10-39 [facility] Comment on above: Performed By: #### H [id number] #### [facility] (DEFAULT) [address] [place] [address] BILIRUBIN TOTALon 11-08-2024 Bilirubin [Mass/Vol] 0.4 mg/dL NINF - 1.5 mg/dL [facility] Bilirubin [Mass/Vol] 0.4 mg/dL Normal <1.5 [facility] Comment on above: Performed By: #### A BORH #### [facility] (DEFAULT) [address] [place] [address] CALCIUMon 11-08-2024 Calcium [Mass/Vol] 8.8 mg/dL 8.6 - 10. 5 mg/dL [facility] Calcium [Mass/Vol] 8.8 mg/dL Normal 8.6-10.5 [facility] Comment on above: Performed By: #### H [id number] #### [facility] (DEFAULT) [address] [place] [address] CBC AND ELECTRONIC DIFFon Basophils (Bld) [#/Vol] K/uL 0.00 - 0.09 K/uL [facility] Basophils/100 WBC (Bld) 0.5 % [facility] Differential cell count method Nom (Bld) Electronic Differential [facility] Eosinophils (Bld) [#/Vol] 0.08 10*3/uL 0.00 - 0.48 K/uL [facility] Eosinophils/100 WBC (Bld) 1.4 % [facility] Erythrocyte distribution width (RBC) [Ratio] 13.4 % 10.9 - 14.3 % [facility] Hematocrit (Bld) [Volume fraction] 27.2 % Low 39.6 - 48.8 % [facility] Hemoglobin (Bld) [Mass/Vol] 9.4 g/dL Low 13.4 - 16.8 g/dL [facility] Immature granulocytes (Bld) [#/Vol] 0.08 10*3/uL High NINF - 0.07 K/uL [facility] Immature granulocytes/100 WBC (Bld) 1.4 % [facility] Interpretation and review of laboratory results Abnormal [facility] Lymphocytes (Bld) [#/Vol] 1.58 10*3/uL 0.83 - 3.57 K/uL [facility] Lymphocytes/100 WBC (Bld) 28.5 % [facility] MCH (RBC) [Entitic mass] 32.8 pg 26.1 - 33.3 pg [facility] MCHC (RBC) [Mass/Vol] 34.6 g/dL 31.9 - 36.5 g/dL [facility] MCV (RBC) [Entitic vol] 94.8 fL High 79.0 - 94.5 fL [facility] Monocytes (Bld) [#/Vol] 0.42 10*3/uL 0.24 - 0.93 K/uL [facility] Monocytes/100 WBC (Bld) 7.6 % [facility] Neutrophils (Bld) [#/Vol] 3.36 10*3/uL 1.57 - 6.19 K/uL [facility] Nucleated RBC/100 WBC (Bld) [Ratio] 0 % NINF [facility] Platelet mean volume (Bld) [Entitic vol] 10 fL 8.7 - 12.3 fL [facility] Platelets (Bld) [#/Vol] 196 10*3/uL 146 - 337 K/uL [facility] RBC (Bld) [#/Vol] 2.87 10*6/uL Low [facility] Segmented neutrophils/100 WBC (Bld) 60.6 % [facility] WBC (Bld) [#/Vol] 5.55 10*3/uL 3.73 - 10. 10 K/uL [facility] Abs Baso Auto < Normal 0.00-0.09 [facility] Comment on above: Performed By: #### A RUMA #### [facility] (DEFAULT) [address] [address] Basophils/100 WBC (Bld) 0.5 % Normal [facility] Comment on above: Performed By: #### A RUMA #### [facility] (DEFAULT) [address] [place] [address] DIFF STATUS Electronic Differential Normal [facility] Comment on above: Performed By: #### A RUMA #### [facility] (DEFAULT) [address] [address] Eosinophils (Bld) [#/Vol] 0.08 10*3/uL Normal 0.00-0.48 [facility] Comment on above: Performed By: #### A RUMA #### [facility] (DEFAULT) [address] [address] Eosinophils/100 WBC (Bld) 1.4 % Normal [facility] Comment on above: Performed By: #### A RUMA #### [facility] (DEFAULT) [address] [address] Hematocrit (Bld) [Volume fraction] 27.2 % Low 39.6-48.8 [facility] Comment on above: Performed By: #### A RUMA #### [facility] (DEFAULT) [address] [address] Hemoglobin (Bld) [Mass/Vol] 9.4 g/dL Low 13.4-16.8 [facility] Comment on above: Performed By: #### A RUMA #### [facility] (DEFAULT) [address] [address] Immature Grans % 1.4 % Normal [facility] Comment on above: Performed By: #### A RUMA #### [facility] (DEFAULT) [address] [address] Immature Grans Absolute 0.08 K/uL High <=0.07 [facility] Comment on above: Performed By: #### A RUMA #### [facility] (DEFAULT) [address] [address] Lymphocytes (Bld) [#/Vol] 1.58 10*3/uL Normal 0.83-3.57 [facility] Comment on above: Performed By: #### A RUMA #### [facility] (DEFAULT) [address] [address] Lymphocytes/100 WBC (Bld) 28.5 % Normal [facility] Comment on above: Performed By: #### A RUMA #### [facility] (DEFAULT) [address] [place] [address] MCV (RBC) [Entitic vol] 94.8 fL High 79.0-94.5 [facility] Comment on above: Performed By: #### A RUMA #### [facility] (DEFAULT) [address] [place] [address] Mean Cell Hgb 32.8 pg Normal 26.1-33.3 [facility] Comment on above: Performed By: #### A RUMA #### [facility] (DEFAULT) [address] [address] Mean Cell Hgb Conc 34.6 g/dL Normal 31.9-36.5 [facility] Comment on above: Performed By: #### A RUMA #### [facility] (DEFAULT) [address] [address] Monocytes (Bld) [#/Vol] 0.42 10*3/uL Normal 0.24-0.93 [facility] Comment on above: Performed By: #### A RUMA #### [facility] (DEFAULT) [address] [address] Monocytes/100 WBC (Bld) 7.6 % Normal [facility] Comment on above: Performed By: #### A RIGOBERTOH #### [facility] (DEFAULT) [address] [address] Nucleated RBC 0.0 /100 WBC Normal <=0.2 [facility] Comment on above: Performed By: #### A RUMA #### [facility] (DEFAULT) [address] [address] Platelet mean volume (Bld) [Entitic vol] 10.0 fL Normal 8.7-12.3 [facility] Comment on above: Performed By: #### A RUMA #### [facility] (DEFAULT) [address] [address] Platelets (Bld) [#/Vol] 196 10*3/uL Normal 146-337 [facility] Comment on above: Performed By: #### A RUMA #### [facility] (DEFAULT) [address] [place] [address] RBC (Bld) [#/Vol] 2.87 10*6/uL Low 4.38-5.83 [facility] Comment on above: Performed By: #### A RUMA #### [facility] (DEFAULT) [address] [place] [address] RBC Distribution 13.4 % Normal 10.9-14.3 [facility] Comment on above: Performed By: #### A RUMA #### [facility] (DEFAULT) [address] [place] [address] Segs + Bands Auto 60.6 % Normal [facility] Comment on above: Performed By: #### A RUMA #### [facility] (DEFAULT) [address] [place] [address] Segs + Bands,Absolute Auto 3.36 K/uL Normal 1.57-6.19 [facility] Comment on above: Performed By: #### A RUMA #### [facility] (DEFAULT) [address] [place] [address] WBC (Bld) [#/Vol] 5.55 10*3/uL Normal 3.73-10.10 [facility] Comment on above: Performed By: #### A RUMA #### [facility] (DEFAULT) [address] [place] [address] CHEM 7 (LYTES,BUN,CREA,GLUC) on 11-08-2024 Anion gap [Moles/Vol] 17 mmol/L 7 - 17 mmol/L [facility] Chloride [Moles/Vol] 92 mmol/L Low 98 - 10 8 mmol/L [facility] CO2 [Moles/Vol] 32 mmol/L High 21 - 31 mmol/L [facility] Creatinine [Mass/Vol] 5.86 mg/dL High 0.70 - 1.30 mg/dL [facility] eGFR, CKD-EPI, Male 11 Low - PINF [facility] Comment on above: Reported eGFR is bas ed on the CKD-EPI 2020 equation using creatinine, age, and sex. Glucose [Mass/Vol] 155 mg/dL High 70 - 99 mg/dL [facility] Osmolality Calc [Osmolality] 296 [facility] Potassium [Moles/Vol] 3.9 mmol/L 3.5 - 5.0 mmol/L [facility] Sodium [Moles/Vol] 137 mmol/L 135 - 145 mmol/L [facility] Urea nitrogen [Mass/Vol] 28 mg/dL High 7 - 25 mg/dL [facility] Urea nitrogen/Creatinine [Mass ratio] 5 mg/mg [facility] Anion gap [Moles/Vol] 17 mmol/L Normal 7-17 [facility] Comment on above: Performed By: #### H [id number] #### [facility] (DEFAULT) [address] [place] [address] Chloride [Moles/Vol] 92 mmol/L Low 98-108 [facility] Comment on above: Performed By: #### H [id number] #### [facility] (DEFAULT) [address] [place] [address] CO2 [Moles/Vol] 32 mmol/L High 21-31 [facility] Comment on above: Performed By: #### H [id number] #### [facility] (DEFAULT) [address] [place] [address] Creatinine [Mass/Vol] 5.86 mg/dL High 0.70-1.30 [facility] Comment on above: Performed By: #### H [id number] #### [facility] (DEFAULT) [address] [place] [address] GFR/1.73 sq M.predicted among non-blacks MDRD (S/P/Bld) [Vol rate/Area] 11 mL/min/{1.73_m2} Low >=60 [facility] Comment on above: Result Comment: Repo rted eGFR is based on the CKD-EPI 2020 equation using creatinine, age, and sex. Performed By: #### H [id number] #### [facility] (DEFAULT) [address] [place] [address] Glucose [Mass/Vol] 155 mg/dL High 70-99 [facility] Comment on above: Performed By: #### H [id number] #### [facility] (DEFAULT) [address] [place] [address] Osmolality [Osmolality] 296 mosm/kg Normal 278-305 [facility] Comment on above: Performed By: #### H [id number] #### [facility] (DEFAULT) [address] [place] [address] Potassium [Moles/Vol] 3.9 mmol/L Normal 3.5-5.0 [facility] Comment on above: Performed By: #### H [id number] #### [facility] (DEFAULT) [address] [place] [address] Sodium [Moles/Vol] 137 mmol/L Normal 135-145 [facility] Comment on above: Performed By: #### H [id number] #### [facility] (DEFAULT) [address] [place] [address] Urea nitrogen [Mass/Vol] 28 mg/dL High 7-25 [facility] Comment on above: Performed By: #### H [id number] #### [facility] (DEFAULT) [address] [place] [address] Urea nitrogen/Creatinine [Mass ratio] 5 mg/mg Normal [facility] Comment on above: Performed By: #### H [id number] #### [facility] (DEFAULT) [address] [place] [address] CMV IGG ABon 11-08-2024 CMV IgG Ql Positive Abnormal Negative [facility] Interpretation and review of laboratory results Abnormal [facility] CMV IgG Antibody Positive Abnormal Negative [facility] Comment on above: Performed By: #### A LCOSU #### [facility] (DEFAULT) [address] [place] [address] EBV VCA IGG ABon 11-08-2024 EBV capsid IgG Ql (S) Positive Abnormal Negative [facility] Interpretation and review of laboratory results Abnormal [facility] EBV VCA IgG Antibody Positive Abnormal Negative [facility] Comment on above: Performed By: #### S URGP #### [facility] (DEFAULT) [address] [place] [address] GGTon 11-08-2024 Gamma glutamyl transferase [Catalytic activity/Vol] 25 U/L 8 - 64 U/L [facility] Gamma glutamyl transferase [Catalytic activity/Vol] 25 U/L Normal 8-64 [facility] Comment on above: Performed By: #### H [id number] #### [facility] (DEFAULT) [address] [place] [address] HEMOGLOBIN A1Con 11-08-2024 Average glucose Estimated from glycated hemoglobin (Bld) [Mass/Vol] 140 mg/dL [facility] HbA1c (Bld) [Mass fraction] 6.5 % High 4.7 - 5.6 % [facility] Interpretation and review of laboratory results Abnormal [facility] Glucose [Mass/Vol] 140 mg/dL Normal [facility] Comment on above: Performed By: #### C A199 #### [facility] (DEFAULT) [address] [place] [address] Hemoglobin A1C HPLC 6.5 % High 4.7-5.6 [facility] Comment on above: Performed By: #### C A199 #### [facility] (DEFAULT) [address] [place] [address] HEPATITIS A IGM ABon 025 HAV IgM IA Ql Negative Negative [facility] Hepatitis A IgM Ab Negative Normal Negative [facility] Comment on above: Performed By: #### A LCOSU #### [facility] (DEFAULT) [address] [address] HEPATITIS B CORE AB,TOTAL (I GG+IGM)on 11-08-2024 HBV core IgG+IgM Ql (S) Negative Negative [facility] Hep B Core Ab,Total (IgG+IgM) Negative Normal Negative [facility] Comment on above: Performed By: #### A LCOSU #### [facility] (DEFAULT) [address] [place] [address] HEPATITIS B SURFACE ANTIBODY on 11-08-2024 HBV surface Ab IA Ql (S) Positive Abnormal Negative [facility] Comment on above: A positive result in dicates immunity through past immunization or prior infection. Interpretation and review of laboratory results Abnormal [facility] Hep B Surface Ab Positive Abnormal Negative [facility] Comment on above: Result Comment: A po sitive result indicates immunity through past immunization or prior infection. Performed By: #### H BSAG, HSVM, HBSAB #### [facility] (DEFAULT) [address] [address] HEPATITIS B SURFACE ANTIGENo n 11-08-2024 HBV surface Ag Ql (S) Negative Negative [facility] Hepatitis B Surface Ag Negative Normal Negative [facility] Comment on above: Performed By: #### H BSAG, HSVM, HBSAB #### [facility] (DEFAULT) [address] [place] [address] HEPATITIS C ANTIBODYOrdered By: John Romano on 11-08-2024 HCV Ab Ql (S) Negative Negative [facility] HEPATITIS C ANTIBODYon 11-08 Hepatitis C Antibody Negative Normal Negative [facility] Comment on above: Performed By: #### C A199 #### [facility] (DEFAULT) [address] [place] [address] HIV 1 AND 2 ANTIBODIES/P24 A NTIGENon 11-08-2024 HIV 1+2 Ab+HIV1 p24 Ag IA Ql Non-Reactive Non Reactive [facility] HIV-1/HIV-2 Ab With p24 Antigen Non-Reactive Normal Non Reactive [facility] Comment on above: Performed By: #### A LCOSU #### [facility] (DEFAULT) [address] [address] HLA TYPING (SOLID ORGAN)on 0 11-08-2024 A 2,11 [facility] Comment on above: Performed By: #### A LCOSU #### [facility] (DEFAULT) [address] [address] B 62,56 [facility] Comment on above: Performed By: #### A LCOSU #### [facility] (DEFAULT) [address] [address] BW 6,6 [facility] Comment on above: Performed By: #### A LCOSU #### [facility] (DEFAULT) [address] [address] C 1,9 [facility] Comment on above: Performed By: #### A LCOSU #### [facility] (DEFAULT) [address] [address] DPA1* 01:03 [facility] Comment on above: Performed By: #### A LCOSU #### [facility] (DEFAULT) [address] [address] DPA11 02:01 [facility] Comment on above: Result Comment: Test ing [...] need for FDA approval.Testing performed by the [facility] Clinical Histocompatibility Laboratory. [facility] number: [id number]. [place] number: [id number], Director: Sage Domingo, PhD, F([facility]). Performed By: #### A LCOSU #### [facility] (DEFAULT) [address] [place] [address] DPB1* DPB11 23:01 [facility] Comment on above: Performed By: #### A LCOSU #### [facility] (DEFAULT) [address] [place] [address] DPB1*DPB1A 01:01 [facility] Comment on above: Performed By: #### A LCOSU #### [facility] (DEFAULT) [address] [place] [address] DQA1* 05:05 [facility] Comment on above: Performed By: #### A LCOSU #### [facility] (DEFAULT) [address] [place] [address] DQA1*DQA11 - [facility] Comment on above: Performed By: #### A LCOSU #### [facility] (DEFAULT) [address] [place] [address] DQB1 7,- [facility] Comment on above: Performed By: #### A LCOSU #### [facility] (DEFAULT) [address] [place] [address] DQB1* 03:01 [facility] Comment on above: Performed By: #### A LCOSU #### [facility] (DEFAULT) [address] [address] DQB1* - DQB11 - [facility] Comment on above: Performed By: #### A LCOSU #### [facility] (DEFAULT) [address] [place] [address] 11,- Normal [facility] Comment on above: Performed By: #### A LCOSU #### [facility] (DEFAULT) [address] [place] [address] DR51,52,53 52 [facility] Comment on above: Performed By: #### A LCOSU #### [facility] (DEFAULT) [address] [place] [address] DRB1* 11:01 [facility] Comment on above: Performed By: #### A LCOSU #### [facility] (DEFAULT) [address] [place] [address] DRB1* - DRB11 - [facility] Comment on above: Performed By: #### A LCOSU #### [facility] (DEFAULT) [address] [place] [address] DRB3* 02:02 [facility] Comment on above: Performed By: #### A LCOSU #### [facility] (DEFAULT) [address] [place] [address] HLA A* 02:01 [facility] Comment on above: Performed By: #### A LCOSU #### [facility] (DEFAULT) [address] [place] [address] HLA A* - HLAAA 11:01 [facility] Comment on above: Performed By: #### A LCOSU #### [facility] (DEFAULT) [address] [place] [address] HLA B* 15:01 [facility] Comment on above: Performed By: #### A LCOSU #### [facility] (DEFAULT) [address] [place] [address] HLA B* - HLABBB 56:01 [facility] Comment on above: Performed By: #### A LCOSU #### [facility] (DEFAULT) [address] [place] [address] HLA C* 01:02 [facility] Comment on above: Performed By: #### A LCOSU #### [facility] (DEFAULT) [address] [address] HLA C* - HLACC 03:03 Normal [facility] Comment on above: Performed By: #### A LCOSU #### [facility] (DEFAULT) [address] [place] [address] HSV 1 AND 2 IGG ANTIBODYon 0 11-08-2024 HSV 1 IgG IA Qn (S) Positive Abnormal Negative [facility] HSV 2 IgG IA Qn (S) Negative Negative [facility] Interpretation and review of laboratory results Abnormal [facility] HSV 1 IgG Antibody Positive Abnormal Negative [facility] Comment on above: Performed By: #### H [id number] #### [facility] (DEFAULT) [address] [address] HSV 2 IgG Antibody Negative Normal Negative [facility] Comment on above: Performed By: #### H SVG12 #### [facility] (DEFAULT) [address] [address] HSV IGM ANTIBODYon HSV I/II IgM Antibody Negative Normal Negative [facility] Comment on above: Performed By: #### H BSAG, HSVM, HBSAB #### [facility] (DEFAULT) [address] [address] M TUBERCULOSIS BY [place] CONNELL 11-08-2024 M. TB Mitogen-Nil 9.94 IU/mL Normal [facility] Comment on above: Order Comment: The M . Tuberculosis antigen levels cannot be correlated to stage or degree of infection, response to therapy or likelihood for progression to active disease. Results from QuantiFERON TB Gold Plus must be used in conjunction with individual epidemiological history, current medical status, and results of other diagnostic evaluation. Performed By: #### C A199 #### [facility] (DEFAULT) [address] [address] M. TB Nil 0.06 IU/mL Normal [facility] Comment on above: Order Comment: The M . Tuberculosis antigen levels cannot be correlated to stage or degree of infection, response to therapy or likelihood for progression to active disease. Results from QuantiFERON TB Gold Plus must be used in conjunction with individual epidemiological history, current medical status, and results of other diagnostic evaluation. Performed By: #### C A199 #### [facility] (DEFAULT) [address] [address] M. TB TB1-Nil 0.00 IU/mL Normal [facility] Comment on above: Order Comment: The M . Tuberculosis antigen levels cannot be correlated to stage or degree of infection, response to therapy or likelihood for progression to active disease. Results from QuantiFERON TB Gold Plus must be used in conjunction with individual epidemiological history, current medical status, and results of other diagnostic evaluation. Performed By: #### C A199 #### [facility] (DEFAULT) [address] [address] M. TB TB2-Nil 0.00 IU/mL Normal [facility] Comment on above: Order Comment: The M . Tuberculosis antigen levels cannot be correlated to stage or degree of infection, response to therapy or likelihood for progression to active disease. Results from QuantiFERON TB Gold Plus must be used in conjunction with individual epidemiological history, current medical status, and results of other diagnostic evaluation. Performed By: #### C A199 #### [facility] (DEFAULT) [address] [address] M. Tuberculosis by Quantiferon in tube Negative Normal Negative [facility] Comment on above: Order Comment: The M . Tuberculosis antigen levels cannot be correlated to stage or degree of infection, response to therapy or likelihood for progression to active disease. Results from QuantiFERON TB Gold Plus must be used in conjunction with individual epidemiological history, current medical status, and results of other diagnostic evaluation. Performed By: #### C A199 #### [facility] (DEFAULT) [address] [address] MAGNESIUMon 11-08-2024 Magnesium [Mass/Vol] 2 mg/dL 1.6 - 2 .6 mg/dL [facility] Magnesium [Mass/Vol] 2.0 mg/dL Normal 1.6-2.6 [facility] Comment on above: Performed By: #### H [id number] #### [facility] (DEFAULT) [address] [address] No Panel InformationOrdered By: John Romano on 11-08-2024 Interpretation and review of laboratory results Normal [facility] No Panel Informationon 11-08 Interpretation and review of laboratory results Normal [facility] Interpretation and review of laboratory results Normal [facility] Interpretation and review of laboratory results Abnormal [facility] OSMOLALITYon 11-08-2024 Interpretation and review of laboratory results Normal [facility] Osmolality [Osmolality] 295 mosm/kg [facility] Osmolality, Serum 295 mOsm/kg Normal 278-305 [facility] Comment on above: Performed By: #### C A199 #### [facility] (DEFAULT) [address] [place] [address] PHOSPHATE, INORGANICon 11-08 Phosphate [Mass/Vol] 4.1 mg/dL 2.2 - 4 .6 mg/dL [facility] Phosphorous 4.1 mg/dL Normal 2.2-4.6 [facility] Comment on above: Performed By: #### A LCOSU #### [facility] (DEFAULT) [address] [place] [address] PRA CLASS (PRE-TRANSPLANT)on 11-08-2024 AB SPECIFICITY CLASS COMMENT Antibody Specificity testing performed by [employer]. cPRA calculation based on identification of HLA antibody specificities at MFI >2000 and/or presence of CREG antibodies. Normal [facility] Comment on above: Result Comment: Some of the reagents used for testing in the Clinical Histocompatibility Laboratory have yet to be approved by the FDA. Our certification by CLIA to perform high complexity tests allows us to use these reagents in the context of a stringent QC program, and obviates the need for FDA approval.Testing performed by the [facility] Clinical Histocompatibility Laboratory. [facility] number: [id number]. [place] number: [id number], Director: Sage Domingo, PhD, F([facility]). Performed By: #### A LCOSU #### [facility] (DEFAULT) [address] [place] [address] CLASS I SPECIFICITIES Not detected Normal [facility] Comment on above: Performed By: #### A LCOSU #### [facility] (DEFAULT) [address] [place] [address] CLASS II SPECIFICITIES Not detected Normal [facility] Comment on above: Performed By: #### A LCOSU #### [facility] (DEFAULT) [address] [place] [address] cPRA 0 % Normal 0 [facility] Comment on above: Performed By: #### A LCOSU #### [facility] (DEFAULT) [address] [place] [address] PROTEIN TOTALon 11-08-2024 Protein [Mass/Vol] 7 g/dL 6.4 - 8.3 g/dL [facility] Protein [Mass/Vol] 7.0 g/dL Normal 6.4-8.3 [facility] Comment on above: Performed By: #### A LCOSU #### [facility] (DEFAULT) [address] [place] [address]173 PSA, SCREENINGon 11-08-2024 Interpretation and review of laboratory results Normal [facility] Prostate specific Ag [Mass/Vol] 0.74 ng/mL NINF - 4.00 ng/mL [facility] Comment on above: This test was perfor med on the [employer] Immunoassay platform which is a 2-step sandwich chemiluminescent immunoassay. It is important to note that assays using different manufacturers and/or methods may not be comparable. [facility] PT,INR,PTTon 11-08-2024 aPTT Coag (PPP) [Time] 35.8 s High [facility] INR Coag (Bld) [Relative time] 1.1 {INR} 0.9 - 1.1 [facility] Interpretation and review of laboratory results Abnormal [facility] PT Coag (PPP) [Time] 14.5 s High [facility] aPTT Coag (Bld) [Time] 35.8 s High 24.0-34.3 [facility] Comment on above: Performed By: #### C A199 #### [facility] (DEFAULT) [address] [place] [address] INR Coag (PPP) [Relative time] 1.1 {INR} Normal 0.9-1.1 [facility] Comment on above: Performed By: #### C A199 #### [facility] (DEFAULT) [address] [place] [address] PT Coag (PPP) [Time] 14.5 s High 11.9-14.2 [facility] Comment on above: Performed By: #### C A199 #### [facility] (DEFAULT) [address] [place] [address] PTH INTACTon 11-08-2024 Interpretation and review of laboratory results Abnormal [facility] Parathyrin.intact [Mass/Vol] 502.3 pg/mL High 14.0 - 72.0 pg/mL [facility] Intact PTH 502.3 pg/mL High 14.0-72.0 [facility] Comment on above: Performed By: #### A LCOSU #### [facility] (DEFAULT) [address] [place] [address] SYPHILIS AB W/REFLEX RPRon 0 11-08-2024 Syphilis IgG/IGM Total Non-Reactive Normal Non Reactiv e [facility] Comment on above: Performed By: #### S URGP #### [facility] (DEFAULT) [address] [place] [address] T. pallidum Ab Ql (S)on 10-26 T. pallidum IgG Ql (S) Non-Reactive Non Reactiv e [facility] TOXICOLOGY DRUG SCREEN, SERU 11-08-2024 Amphetamines Screen, Serum Not detected Normal [facility] Comment on above: Result Comment: Repo rting Limit: 20 ng/mL Synonym(s): Adderall; Amfetamine; Dextroamphetamine; Levoamphetamine Analysis by Enzyme-Linked Immunosorbent Assay (VINICIO) Performed By: #### C A199 #### [facility] (DEFAULT) [address] [address] Barbiturates Screen, Serum Not detected Normal [facility] Comment on above: Result Comment: Repo rting Limit: 0.040 mcg/mL Analysis by Enzyme-Linked Immunosorbent Assay (VINICIO) Performed By: #### C A199 #### [facility] (DEFAULT) [address] [address] Benzodiazepine Screen, Serum Not detected Normal [facility] Comment on above: Result Comment: Repo rting Limit: 100 ng/mL Synonym(s): Sedative; Tranquilizer Analysis by Enzyme-Linked Immunosorbent Assay (VINICIO) Performed By: #### C A199 #### [facility] (DEFAULT) [address] [address] Cannabinoids Screen, Serum Not detected Normal [facility] Comment on above: Result Comment: Repo rting Limit: 10 ng/mL Synonym(s): Cannabis; Hashish; Marihuana; Marijuana; THC Analysis by Enzyme-Linked Immunosorbent Assay (VINICIO) Performed By: #### C A199 #### [facility] (DEFAULT) [address] [address] Cocaine/Metabolites Screen, Serum Not detected Normal [facility] Comment on above: Result Comment: Repo rting Limit: 20 ng/mL Synonym(s): Blow; Crack; Snow Analysis by Enzyme-Linked Immunosorbent Assay (VINICIO) Performed By: #### C A199 #### [facility] (DEFAULT) [address] [address] Fentanyl/Acetyl Fentanyl Screen, Serum Not detected Normal [facility] Comment on above: Result Comment: Repo rting Limit: 0.50 ng/mL Analysis by Enzyme-Linked Immunosorbent Assay (VINICIO) Performed By: #### C A199 #### [facility] (DEFAULT) [address] [address] Methamphetamine/MDMA Screen, Serum Not detected Normal [facility] Comment on above: Result Comment: Repo rting Limit: 20 ng/mL Synonym(s): Desoxyn(R); Ecstasy; Meth; Denise Analysis by Enzyme-Linked Immunosorbent Assay (VINICIO) Performed By: #### C A199 #### [facility] (DEFAULT) [address] [address] Methodone Screen, Serum Not detected Normal [facility] Comment on above: Result Comment: Repo rting Limit: 25 ng/mL Analysis by Enzyme-Linked Immunosorbent Assay (VINICIO) Performed By: #### C A199 #### [facility] (DEFAULT) [address] [address] Opiates Screen, Serum Not detected Normal [facility] Comment on above: Result Comment: Repo rting Limit: 20 ng/mL Synonym(s): Codeine; Heroin; Morphine; Opium Analysis by Enzyme-Linked Immunosorbent Assay (VINICIO) Performed By: #### C A199 #### [facility] (DEFAULT) [address] [address] Oxycodone/Oxymorphone Screen, Serum Not detected Normal [facility] Comment on above: Result Comment: Repo rting Limit: 10 ng/mL Analysis by Enzyme-Linked Immunosorbent Assay (VINICIO) This test was developed and its performance characteristics determined by [employer]. It has not been cleared or approved by the [place] Food and Drug Administration. Digital data review may have taken place remotely by qualified [facility] staff utilizing a secure VPN connection for some or all of the reported results. This is in accordance with and follows CLIA regulations. Test Performed by: [employer] [address] [place] [id number] Performed By: #### C A199 #### [facility] (DEFAULT) [address] [address] Phencyclidine Screen, Serum Not detected Normal [facility] Comment on above: Result Comment: Repo rting Limit: 10 ng/mL Synonym(s): Omar Dust; PCP; Sherm Analysis by Enzyme-Linked Immunosorbent Assay (VINICIO) Performed By: #### C A199 #### [facility] (DEFAULT) [address] [place] [address] TYPE AND SCREENon 11-08-2024 ABO/RH(D) TYPE Positive [facility] Specimen Expiration 11/11/2024 23:59 [facility] ABO/RH(D) TYPE Positive Normal [facility] Comment on above: Performed By: #### H SVG12 #### [facility] (DEFAULT) [address] [place] [address] Specimen Expiration 11/11/2024 23:59 Normal [facility] Comment on above: Performed By: #### H SVG12 #### [facility] (DEFAULT) [address] [place] [address] URIC ACIDon 11-08-2024 Urate [Mass/Vol] 4.5 mg/dL 3.5 - 7.0 mg/dL [facility] Urate [Mass/Vol] 4.5 mg/dL Normal 3.5-7.0 [facility] Comment on above: Performed By: #### A BORLaurie #### [facility] (DEFAULT) [address] [address] VARICELLA IGG AB (IMM STATUS )on 11-08-2024 VZV IgG Ql (S) Positive Positive [facility] Comment on above: Prior exposure to e varicella zoster virus may cause measurable varicella zoster IgG antibody. A positive result indicates immunity through past immunization or prior infection. VZV IgG Qn (S) 3.4 [facility] Comment on above: THIS IS A QUALITATIV E ASSAY. The numeric value is not necessarily indicative of the amount of anti-Measles, Mumps, Rubella, or VZV IgG antibody present. Results should be interpreted in conjunction with clinical and epidemological data. [facility] Varicella Immune Status IgG Antibody Positive Normal Positive [facility] Comment on above: Result Comment: Prio r exposure to the varicella zoster virus may cause measurable varicella zoster IgG antibody. A positive result indicates immunity through past immunization or prior infection. Performed By: #### S URGP #### [facility] (DEFAULT) [address] [place] [address] Varicella Immune Status IgG Index 3.4 Normal [facility] Comment on above: Result Comment: THIS IS A QUALITATIVE ASSAY. The numeric value is not necessarily indicative of the amount of anti-Measles, Mumps, Rubella, or VZV IgG antibody present. Results should be interpreted in conjunction with clinical and epidemological data. Performed By: #### S URGP #### [facility] (DEFAULT) [address] [place] [address] XR CHEST PA AND LATERAL 2 EWSon [...] Normal IMPRESSION: No acute cardiopulmonary disease Normal [facility] XR Chest PA and Lateralon IMPRESSION: [...] Normal IMPRESSION IMPRESSION: No acute cardiopulmonary disease [facility] Radiology Study observation (narrative) [facility] XR Chest PA and LateralOrder ed By: Anuradha Belcher on 11-08-2024 [facility] Work Phone: Operative Reporton Operative Report Normal [facility] MR/BMS.BVSon 09-30-2024 MR/BMS.BVS Normal [facility] Gastroenterology Visit Repor ton 09-18-2024 Gastroenterology Visit Report Normal [facility] AV Fistula/Dialysis Graft Sc anon 09-13-2024 AV Fistula/Dialysis Graft Scan Normal [facility] CNCOon 09-13-2024 CNCO Letter Text Normal [facility] Emergency Department Summary on 09-12-2024 Emergency Department Summary Normal [facility] CNPNon 09-11-2024 CNPN Telephone (TXCTGL) -------- REGINALDO HUFFMAN ([id number]) 1970 M Date Time Provider Department 09/11/24 [...] 12 months for any organ) Reginaldo Huffman [phone] Spoke with: Patient Best Contact FOR PANCREAS AND KIDNEY/PANCREAS TRANSPLANT AGE 55+ is a HARD STOP If patient is NOT on Dialysis AND has a GFR >21 is a HARD STOP REFERRING ECHOCARDIOGRAPHER / PHYSICIAN: Radha Nayak Have you ever [...] referral for transplant to your ([place]) Medicaid leather case finisher? No If the patient has Medicare A/B [...] COPD/Emphysema/Other pulmonary problem: No [facility] Days: Dialysis start date: 05/12/2024 If [...] [facility] Hx of Hypertension? Yes Hx of FL/Heart Attack? No Hx of TIA/CVA or Stroke? No Are you on a blood thinner? No If YES which medication are you on? N/A Have you had a CABG or STENTS? No Have you ever had a Stress Test? [facility]. [address] [place] [address]. [phone]. 2019 Have you ever had an Echo? No Have you ever had a Cardiac Cath? No CT Abdomen/Pelvis: Yes. If yes, date and location: 4 month ago. [facility]. [address] [place] [address]. . Mammogram: No Pap Test: No Colonoscopy: [facility]. [address] [place] [address]. [phone]. 2019. 4 month ago. Hx of Lupus? No Sickle Cell Trait or Disease: No Have you had any prior surgeries? yes Colon cancer 2013 Do you have a potential living donor? No MyCHART Is the patient signed up for Knotch? No If YES - send patient the Kidney/Pancreas New Referral Message. If NO - obtain their email address AND send Zubkahart sign up information: email address: [email or web address] Is the patient okay with having a Virtual Appt: No ( patient does not have a computer) What facilities do we need outside records from: [facility]. [address] [place] [address]. [phone]. 2019 Have records been (more content not included)... Normal [facility] Absolute lymphocyte countOrd ered By: Jimmie Ibarra on 08-14-2024 Lymphocytes Auto (Unsp spec) [#/Vol] 1.23 10*3/uL 0.83-4.51 [facility] Absolute neutrophil countOrd ered By: Jimmie Ward on 08-14-2024 Neutrophils (Bld) [#/Vol] 3.0 10*3/uL 2.0-7.7 [facility] Albumin to globulin ratioOrd ered By: Jimmie Ibarra on 08-14-2024 Albumin/Globulin [Mass ratio] 0.9 {ratio} 0.9-2.4 [facility] Automated lymphocyte count a s percentage of total leukocytesOrdered By: Jimmie Ibarra on 08-14-2024 Lymphocytes/100 WBC Auto (Unsp spec) 26.1 % 19-41 [facility] Basophil percentageOrdered B y: Jimmie [facility] on 08-14-2024 Basophils/100 WBC (Bld) 0.6 % 0-1 [facility] Bilirubin, totalOrdered By: Jimmie Ward on 08-14-2024 Bilirubin [Mass/Vol] 0.30 mg/dL 0.20-1.00 [facility] Comment on above: For patients on eltr ombopag therapy, use of Dimension [place] TBIL is not recommended. Blood urea nitrogen (BUN)/cr eatinine ratioOrdered By: Jimmie Ward on 08-14-2024 Urea nitrogen/Creatinine [Mass ratio] 7.6 mg/mg Low 10-20 [facility] CBC W/Diff, Automatedon 07-28 Absolute Lymph 1.23 X10 3/uL Normal 0.83-4.51 [facility] Comment on above: Performed By: #### L 503.6030, L500.4050, L100.0100, L504.2610, L503.6550 ####[facility] [address] [place], [address] Absolute Neut 3.0 X10 3/uL Normal 2.0-7.7 [facility] Comment on above: Performed By: #### L 503.6030, L500.4050, L100.0100, L504.2610, L503.6550 ####[facility] [address] [place], [address] Basophils/100 WBC (Bld) 0.6 % Normal 0-1 [facility] Comment on above: Performed By: #### L 503.6030, L500.4050, L100.0100, L504.2610, L503.6550 ####[facility] [address] [place], [address] Eosinophils/100 WBC (Bld) 1.5 % Normal 0-5 [facility] Comment on above: Performed By: #### L 503.6030, L500.4050, L100.0100, L504.2610, L503.6550 ####[facility] [address] [place], [address] Erythrocyte distribution width (RBC) [Ratio] 15.9 % High 11.6-14.6 [facility] Comment on above: Performed By: #### L 503.6030, L500.4050, L100.0100, L504.2610, L503.6550 ####[facility] [address] [place], [address] Hematocrit (Bld) [Volume fraction] 21.8 % Low 40-54 [facility] Comment on above: Performed By: #### L 503.6030, L500.4050, L100.0100, L504.2610, L503.6550 ####[facility] [address] [place], [address] Hemoglobin (Bld) [Mass/Vol] 7.3 g/dL Low 13.0-16.5 [facility] Comment on above: Performed By: #### L 503.6030, L500.4050, L100.0100, L504.2610, L503.6550 ####[facility] [address] [place], [address] IG% 2.300 High 0.0-0.9 [facility] Comment on above: Result Comment: IG% - Immature Granulocytes (promyelocytes, myelocytes andmetamyelocytes) > 1% indicates that a LEFT SHIFT is Present. Performed By: #### L 503.6030, L500.4050, L100.0100, L504.2610, L503.6550 ####[facility] [address] [place], [address] Lymphocytes/100 WBC (Bld) 26.1 % Normal 19-41 [facility] Comment on above: Performed By: #### L 503.6030, L500.4050, L100.0100, L504.2610, L503.6550 ####[facility] [address] [place], [address] MCH (RBC) [Entitic mass] 31.7 pg Normal 27.0-32.0 [facility] Comment on above: Performed By: #### L 503.6030, L500.4050, L100.0100, L504.2610, L503.6550 ####[facility] [address] [place], [address] MCHC (RBC) [Mass/Vol] 33.5 g/dL Normal 32-36 [facility] Comment on above: Performed By: #### L 503.6030, L500.4050, L100.0100, L504.2610, L503.6550 ####[facility] [address] [place], [address] MCV (RBC) [Entitic vol] 94.8 fL High 80-94 [facility] Comment on above: Performed By: #### L 503.6030, L500.4050, L100.0100, L504.2610, L503.6550 ####[facility] [address] [place], [address] Monocytes/100 WBC (Bld) 6.6 % Normal 0-10 [facility] Comment on above: Performed By: #### L 503.6030, L500.4050, L100.0100, L504.2610, L503.6550 ####[facility] [address] [place], [address] Neutrophils/100 WBC (Bld) 62.9 % Normal 47-70 [facility] Comment on above: Performed By: #### L 503.6030, L500.4050, L100.0100, L504.2610, L503.6550 ####[facility] [address] [place], [address] Nucleated RBC (Bld) [#/Vol] 0 10*3/uL Normal 0-5 [facility] Comment on above: Performed By: #### L 503.6030, L500.4050, L100.0100, L504.2610, L503.6550 ####[facility] [address] [place], [address] Platelet mean volume (Bld) [Entitic vol] 11.2 fL Normal 6.2-12.0 [facility] Comment on above: Performed By: #### L 503.6030, L500.4050, L100.0100, L504.2610, L503.6550 ####[facility] [address] [place], [address] Platelets (Bld) [#/Vol] 137 10*3/uL Low 150-450 [facility] Comment on above: Performed By: #### L 503.6030, L500.4050, L100.0100, L504.2610, L503.6550 ####[facility] [address] [place], [address] RBC (Bld) [#/Vol] 2.30 10*6/uL Low 4.6-6.[address] [facility] Comment on above: Performed By: #### L 503.6030, L500.4050, L100.0100, L504.2610, L503.6550 ####[facility] [address] [place], [address] RDW SD 54.5 fl High 35.1-43.9 [facility] Comment on above: Performed By: #### L 503.6030, L500.4050, L100.0100, L504.2610, L503.6550 ####[facility] [address] [place], [address] WBC (Bld) [#/Vol] 4.7 10*3/uL Normal 4.4-11.0 [facility] Comment on above: Performed By: #### L 503.6030, L500.4050, L100.0100, L504.2610, L503.6550 ####[facility] [address] [place], [address] Carbon dioxide measurementOr dered By: Jimmie Ibarra on 08-14-2024 CO2 [Moles/Vol] 32.0 mmol/L 21.0-32.0 [facility] Chloride measurementOrdered By: Jimmie Ibarra on 08-14-2024 Chloride [Moles/Vol] 103 mmol/L 98-107 [facility] Comprehensive Metabolic Prof ilon 08-14-2024 Albumin [Mass/Vol] 3.0 g/dL Low 3.2-5.0 [facility] Comment on above: Order Comment: 1 Performed By: #### L 503.6030, L500.4050, L100.0100, L504.2610, L503.6550 ####[facility] [address] [place], [address] Albumin/Globulin [Mass ratio] 0.9 {ratio} Normal 0.9-2.4 [facility] Comment on above: Order Comment: 1 Performed By: #### L 503.6030, L500.4050, L100.0100, L504.2610, L503.6550 ####[facility] [address] [place], [address] ALK P 49 U/L Normal 45-117 [facility] Comment on above: Order Comment: 1 Performed By: #### L 503.6030, L500.4050, L100.0100, L504.2610, L503.6550 ####[facility] [address] [place], [address] ALT [Catalytic activity/Vol] 15 U/L Low 16-61 [facility] Comment on above: Order Comment: 1 Performed By: #### L 503.6030, L500.4050, L100.0100, L504.2610, L503.6550 ####[facility] [address] [place], [address] AST [Catalytic activity/Vol] 11 U/L Low 15-37 [facility] Comment on above: Order Comment: 1 Performed By: #### L 503.6030, L500.4050, L100.0100, L504.2610, L503.6550 ####[facility] [address] [place], [address] Bilirubin [Mass/Vol] 0.30 mg/dL Normal 0.20-1.00 [facility] Comment on above: Order Comment: 1 Result Comment: For patients on eltrombopag therapy, use of Dimension [place] TBIL is not recommended. Performed By: #### L 503.6030, L500.4050, L100.0100, L504.2610, L503.6550 ####[facility] [address] [place], [address] BUN/CRE 7.6 RATIO Low 10-20 [facility] Comment on above: Order Comment: 1 Performed By: #### L 503.6030, L500.4050, L100.0100, L504.2610, L503.6550 ####[facility] [address] [place], [address] CA,Total 8.4 mg/dL Low 8.5-10.1 [facility] Comment on above: Order Comment: 1 Performed By: #### L 503.6030, L500.4050, L100.0100, L504.2610, L503.6550 ####[facility] [address] [place], [address] Chloride [Moles/Vol] 103 mmol/L Normal 98-107 [facility] Comment on above: Order Comment: 1 Performed By: #### L 503.6030, L500.4050, L100.0100, L504.2610, L503.6550 ####[facility] [address] [place], [address] CO2 [Moles/Vol] 32.0 mmol/L Normal 21.0-32.0 [facility] Comment on above: Order Comment: 1 Performed By: #### L 503.6030, L500.4050, L100.0100, L504.2610, L503.6550 ####[facility] [address] [place], [address] Creatinine [Mass/Vol] 5.37 mg/dL High 0.70-1.30 [facility] Comment on above: Order Comment: 1 Result Comment: The validity of the calculated GFR GFRAA in patients over70 years has not been determined. Clinical correlation isessential. Performed By: #### L 503.6030, L500.4050, L100.0100, L504.2610, L503.6550 ####[facility] [address] [place], [address] ECRCL 17.08 ml/min Normal [facility] Comment on above: Order Comment: 1 Performed By: #### L 503.6030, L500.4050, L100.0100, L504.2610, L503.6550 ####[facility] [address] [place], [address] EST GFR - AA 14 mL/min Low >60 [facility] Comment on above: Order Comment: 1 Result Comment: Afri can Indian GFR Calc Performed By: #### L 503.6030, L500.4050, L100.0100, L504.2610, L503.6550 ####[facility] [address] [place], [address] GAP 2 Low 5-15 [facility] Comment on above: Order Comment: 1 Performed By: #### L 503.6030, L500.4050, L100.0100, L504.2610, L503.6550 ####[facility] [address] [place], [address] GFR/1.73 sq M.predicted among non-blacks MDRD (S/P/Bld) [Vol rate/Area] 12 mL/min/{1.73_m2} Low >60 [facility] Comment on above: Order Comment: 1 Result Comment: Non- GFR Calc Performed By: #### L 503.6030, L500.4050, L100.0100, L504.2610, L503.6550 ####[facility] [address] [place], [address] Globulin (S) [Mass/Vol] 3.5 g/dL Normal 2.2-4.2 [facility] Comment on above: Order Comment: 1 Performed By: #### L 503.6030, L500.4050, L100.0100, L504.2610, L503.6550 ####[facility] [address] [place], [address] Glucose [Mass/Vol] 190 mg/dL High 74-106 [facility] Comment on above: Order Comment: 1 Result Comment: Fast ing Glucose result greater than or equal to 126 mg/dLsuggests DIABETES MELLITUS per A.D.A. criteria. Performed By: #### L 503.6030, L500.4050, L100.0100, L504.2610, L503.6550 ####[facility] [address] [place], [address] Potassium [Moles/Vol] 4.1 mmol/L Normal 3.5-5.1 [facility] Comment on above: Order Comment: 1 Performed By: #### L 503.6030, L500.4050, L100.0100, L504.2610, L503.6550 ####[facility] [address] [place], [address] Sodium [Moles/Vol] 137 mmol/L Normal 136-145 [facility] Comment on above: Order Comment: 1 Performed By: #### L 503.6030, L500.4050, L100.0100, L504.2610, L503.6550 ####[facility] [address] [place], [address] T PROT 6.5 g/dL Normal 6.4-8.2 [facility] Comment on above: Order Comment: 1 Performed By: #### L 503.6030, L500.4050, L100.0100, L504.2610, L503.6550 ####[facility] [address] [place], [address] Urea nitrogen [Mass/Vol] 41 mg/dL High 7-18 [facility] Comment on above: Order Comment: 1 Performed By: #### L 503.6030, L500.4050, L100.0100, L504.2610, L503.6550 ####[facility] [address] [place], [address] Eosinophil percentageOrdered By: Jimmie Ibarra on 08-14-2024 Eosinophils/100 WBC (Bld) 1.5 % 0-5 [facility] Erythrocyte distribution wid th ratioOrdered By: Jimmie Ibarra on 08-14-2024 Erythrocyte distribution width (RBC) [Ratio] 15.9 % High 11.6-14.6 [facility] Erythrocyte distribution wid th standard deviationOrdered By: Jimmie Ibarra on 08-14-2024 Erythrocyte distribution width (RBC) [Ratio] 54.5 fl High 35.1-43.9 [facility] Ferritinon 08-14-2024 Ferritin [Mass/Vol] 507 ng/mL High 26-[address] [facility] Comment on above: Order Comment: 1 Performed By: #### L 503.6030, L500.4050, L100.0100, L504.2610, L503.6550 ####[facility] [address] [place], [address] Ferritin measurementOrdered By: Jimmie Ibarra on 08-14-2024 Ferritin [Mass/Vol] 507 ng/mL High 26-[address] [facility] Glomerular filtration rate ( GFR) estimationOrdered By: Jimmie Ibarra on 08-14-2024 GFR/1.73 sq M.predicted among non-blacks MDRD (S/P/Bld) [Vol rate/Area] 12 mL/min/{1.73_m2} Low >60 [facility] Comment on above: Non- GFR Calc Glucose measurementOrdered B y: Jimmie Ibarra on 08-14-2024 Glucose [Mass/Vol] 190 mg/dL High 74-106 [facility] Comment on above: Fasting Glucose resu lt greater than or equal to 126 mg/dL suggests DIABETES MELLITUS per A.D.A. criteria. Hematocrit Auto (Bld) [Volum e fraction]Ordered By: Jimmie Ibarra on 08-14-2024 Hematocrit (Bld) [Volume fraction] 21.8 % Low 40-54 [facility] Hemoglobin measurementOrdere d By: Jimmie Ibarra on 08-14-2024 Hemoglobin (Bld) [Mass/Vol] 7.3 g/dL Low 13.0-16.5 [facility] Immature granulocytes/100 WB C Auto (Bld)Ordered By: Jimmie Ibarra on 08-14-2024 Immature granulocytes/100 WBC (Bld) 2.300 % High 0.0-0.9 [facility] Comment on above: IG% - Immature Granu locytes (promyelocytes, myelocytes and metamyelocytes) > 1% indicates that a LEFT SHIFT is Present. Iron measurement (mass/mass) Ordered By: Jimmie Ibarra on 08-14-2024 Iron (Unsp spec) [Mass/Mass] 112 ug/dL 65-175 [facility] Iron+Iron Binding Capacityon 08-14-2024 Iron [Mass/Vol] 112 ug/dL Normal 65-175 [facility] Comment on above: Order Comment: 1 Performed By: #### L 503.6030, L500.4050, L100.0100, L504.2610, L503.6550 ####[facility] [address] [place], [address] IRON SATURATION 41.2 Normal 15.0-55.0 [facility] Comment on above: Order Comment: 1 Performed By: #### L 503.6030, L500.4050, L100.0100, L504.2610, L503.6550 ####[facility] [address] [place], [address] TIBC 272 ug/dL Normal 250-450 [facility] Comment on above: Order Comment: 1 Performed By: #### L 503.6030, L500.4050, L100.0100, L504.2610, L503.6550 ####[facility] [address] [place], [address] LDHon 08-14-2024 LDH 203 U/L Normal 87-241 [facility] Comment on above: Order Comment: 1 Performed By: #### L 503.6030, L500.4050, L100.0100, L504.2610, L503.6550 ####[facility] [address] [place], [address] Laboratory - Chemistry and C hemistry - challengeOrdered By: Jimmie Ibarra on 08-14-2024 AST [Catalytic activity/Vol] 11 U/L Low 15-37 [facility] Lactate dehydrogenase (LDH) measurementOrdered By: Jimmie Ibarra on 08-14-2024 LDH [Catalytic activity/Vol] 203 U/L 87-241 [facility] MCV (mean corpuscular volume ) determinationOrdered By: Jimmie Ibarra on 08-14-2024 MCV (RBC) [Entitic vol] 94.8 fL High 80-94 [facility] Mean corpuscular hemoglobin (MCH) determinationOrdered By: Jimmie Ibarra on 08-14-2024 MCH (RBC) [Entitic mass] 31.7 pg 27.0-32.0 [facility] Mean corpuscular hemoglobin concentration (MCHC) determinationOrdered By: Jimmie Ibarra on 08-14-2024 MCHC (RBC) [Mass/Vol] 33.5 g/dL 32-36 [facility] Mean platelet volume determi nationOrdered By: Jimmie Ibarra on 08-14-2024 Platelet mean volume (Bld) [Entitic vol] 11.2 fL 6.2-12.0 [facility] Monocyte percentageOrdered B y: Jimmie Ibarra on 08-14-2024 Monocytes/100 WBC (Bld) 6.6 % 0-10 [facility] Neutrophil percentageOrdered By: Jimmie Ibarra on 08-14-2024 Neutrophils/100 WBC (Bld) 62.9 % 47-70 [facility] Nucleated red blood cell per centageOrdered By: Jimmie Ibarra on 08-14-2024 Nucleated RBC/100 WBC (Bld) [Ratio] 0 % 0-5 [facility] Oncology Visit Reporton 07-28 Oncology Visit Report Normal [facility] Platelet countOrdered By: Anastasia Ibarra on 08-14-2024 Platelets (Bld) [#/Vol] 137 10*3/uL Low 150-450 [facility] Potassium measurementOrdered By: Jimmie Ibarra on 08-14-2024 Potassium [Moles/Vol] 4.1 mmol/L 3.5-5.1 [facility] RBC Auto (Bld) [#/Vol]Ordere d By: Jimmie Ibarra on 08-14-2024 RBC (Bld) [#/Vol] 2.30 10*6/uL Low 4.6-6.[address] [facility] Serum anion gap measurementO rdered By: Jimmie Ibarra on 08-14-2024 Anion gap [Moles/Vol] 2 mmol/L Low 5-15 [facility] Serum globulin measurementOr dered By: Jimmie Ibarra on 08-14-2024 Globulin (S) [Mass/Vol] 3.5 g/dL 2.2-4.2 [facility] Serum or plasma alanine meng otransferase (ALT) measurementOrdered By: Jimmie Ibarra on 08-14-2024 ALT [Catalytic activity/Vol] 15 U/L Low 16-61 [facility] Serum or plasma albumin abhi urement (mass/volume)Ordered By: Jimmie Ibarra on 08-14-2024 Albumin [Mass/Vol] 3.0 g/dL Low 3.2-5.0 [facility] Serum or plasma alkaline jaspreet sphatase measurementOrdered By: Jimmie Ibarra on 08-14-2024 ALP [Catalytic activity/Vol] 49 U/L 45-117 [facility] Serum or plasma calcium abhi urement (mass/volume)Ordered By: Jimmie Ibarra on 08-14-2024 Calcium [Mass/Vol] 8.4 mg/dL Low 8.5-10.1 [facility] Serum or plasma creatinine m easurement (mass/volume)Ordered By: Jimmie Ibarra on 08-14-2024 Creatinine [Mass/Vol] 5.37 mg/dL High 0.70-1.30 [facility] Comment on above: The validity of the calculated GFR & GFRAA in patients over 70 years has not been determined. Clinical correlation is essential. Serum or plasma iron saturat ion measurement (mass fraction)Ordered By: Jimmie Ibarra on 08-14-2024 Iron saturation [Mass fraction] 41.2 % 15.0-55.0 [facility] Serum or plasma urea nitroge n measurement (mass/volume)Ordered By: Jimmie Ibarra on 08-14-2024 Urea nitrogen [Mass/Vol] 41 mg/dL High 7-18 [facility] Sodium levelOrdered By: Omid Ibarra on 08-14-2024 Sodium [Moles/Vol] 137 mmol/L 136-145 [facility] Total proteinOrdered By: Brandt Ibarra on 08-14-2024 Protein [Mass/Vol] 6.5 g/dL 6.4-8.2 [facility] White blood cell (WBC) count Ordered By: Jimmie Ibarra on 08-14-2024 WBC (Bld) [#/Vol] 4.7 10*3/uL 4.4-11.0 [facility] Surgery Visit Reporton 08-07 Surgery Visit Report Normal [facility] Hemoglobinon 08-01-2024 Hemoglobin (Bld) [Mass/Vol] 7.2 g/dL Low 13.0-16.5 [facility] Comment on above: Performed By: #### L 100.1300 ####[facility] [address] [place], [address] Erythropoietinon 07-29-2024 ERYTHROPOIETIN 8.1 mIU/mL Normal 2.6-18.5 [facility] Comment on above: Result Comment: [employer] DxI 800 Immunoassay SystemValues obtained with different assay methods or kits cannotbe used interchangeably. Results cannot be interpreted asabsolute evidence of the presence or absence of malignantdisease.Performed at: [facility] Director: Bradley Peña PhD, Phone: [phone] Performed By: #### L 501.7900, L3610.1355 ####[facility] [address] [place], [place], [id number] Carbamazepine (Tegretol)on 09-25-2023 CARBAMAZEPINE 11.4 ug/mL Normal 4.0-12.0 [facility] Comment on above: Performed By: #### L 501.7900, L3100.1350 ####[facility] [address] [place], [address] Basic Metabolic Profile (BMP )on 07-23-2024 BUN/CRE 7.2 RATIO Low 10-20 [facility] Comment on above: Performed By: #### L 500.2500, BTSPAT, L100.0500 ####[facility] [address] [place], [place], [id number] CA,Total 7.9 mg/dL Low 8.5-10.1 [facility] Comment on above: Performed By: #### L 500.2500, BTSPAT, L100.0500 ####[facility] [address] [place], [address] Chloride [Moles/Vol] 105 mmol/L Normal 98-107 [facility] Comment on above: Performed By: #### L 500.2500, BTSPAT, L100.0500 ####[facility] [address] [place], [address] CO2 [Moles/Vol] 31.0 mmol/L Normal 21.0-32.0 [facility] Comment on above: Performed By: #### L 500.2500, BTSPAT, L100.0500 ####[facility] [address] [place], [address] Creatinine [Mass/Vol] 4.17 mg/dL High 0.70-1.30 [facility] Comment on above: Result Comment: The validity of the calculated GFR GFRAA in patients over70 years has not been determined. Clinical correlation isessential. Performed By: #### L 500.2500, BTSPAT, L100.0500 ####[facility] [address] [place], [address] ECRCL 21.96 ml/min Normal [facility] Comment on above: Performed By: #### L 500.2500, BTSPAT, L100.0500 ####[facility] [address] [place], [address] EST GFR - AA 19 mL/min Low >60 [facility] Comment on above: Result Comment: Afri can Indian GFR Calc Performed By: #### L 500.2500, BTSPAT, L100.0500 ####[facility] [address] [place], [address] GAP 4 Low 5-15 [facility] Comment on above: Performed By: #### L 500.2500, BTSPAT, L100.0500 ####[facility] [address] [place], [address] GFR/1.73 sq M.predicted among non-blacks MDRD (S/P/Bld) [Vol rate/Area] 16 mL/min/{1.73_m2} Low >60 [facility] Comment on above: Result Comment: Non- GFR Calc Performed By: #### L 500.2500, BTSPAT, L100.0500 ####[facility] [address] [place], [address] Glucose [Mass/Vol] 86 mg/dL Normal 74-106 [facility] Comment on above: Performed By: #### L 500.2500, BTSPAT, L100.0500 ####[facility] [address] [place], [address] Potassium [Moles/Vol] 4.4 mmol/L Normal 3.5-5.1 [facility] Comment on above: Performed By: #### L 500.2500, BTSPAT, L100.0500 ####[facility] [address] [place], [address] Sodium [Moles/Vol] 140 mmol/L Normal 136-145 [facility] Comment on above: Performed By: #### L 500.2500, BTSPAT, L100.0500 ####[facility] [address] [place], [address] Urea nitrogen [Mass/Vol] 30 mg/dL High 7-18 [facility] Comment on above: Performed By: #### L 500.2500, BTSPAT, L100.0500 ####[facility] [address] [place], [address] Bedside Glucoseon 07-23-2024 FINGERSTICK GLU 89 mg/dL Normal 74-106 [facility] Comment on above: Result Comment: AAMIR GEMENT OF PATIENT CARE PER NURSING PROTOCOL Performed By: #### L 501.080 ####[facility] [address] [place], [address] FINGERSTICK GLU 56 mg/dL Low 74-106 [facility] Comment on above: Result Comment: AAMIR GEMENT OF PATIENT CARE PER NURSING PROTOCOL Performed By: #### L 501.080 ####[facility] [address] [place], [address] FINGERSTICK GLU 81 mg/dL Normal 74-106 [facility] Comment on above: Result Comment: AAMIR GEMENT OF PATIENT CARE PER NURSING PROTOCOL Performed By: #### L 501.080 ####[facility] [address] [place], [address] CBC-Complete Blood Cnt No Di ffon 07-23-2024 Erythrocyte distribution width (RBC) [Ratio] 14.4 % Normal 11.6-14.6 [facility] Comment on above: Performed By: #### L 500.2500, BTSPAT, L100.0500 ####[facility] [address] [place], [address] Hematocrit (Bld) [Volume fraction] 22.6 % Low 40-54 [facility] Comment on above: Performed By: #### L 500.2500, BTSPAT, L100.0500 ####[facility] [address] [place], [address] Hemoglobin (Bld) [Mass/Vol] 7.2 g/dL Low 13.0-16.5 [facility] Comment on above: Performed By: #### L 500.2500, BTSPAT, L100.0500 ####[facility] [address] [place], [address] MCH (RBC) [Entitic mass] 29.6 pg Normal 27.0-32.0 [facility] Comment on above: Performed By: #### L 500.2500, BTSPAT, L100.0500 ####[facility] [address] [place], [address] MCHC (RBC) [Mass/Vol] 31.9 g/dL Low 32-36 [facility] Comment on above: Performed By: #### L 500.2500, BTSPAT, L100.0500 ####[facility] [address] [place], [address] MCV (RBC) [Entitic vol] 93.0 fL Normal 80-94 [facility] Comment on above: Performed By: #### L 500.2500, BTSPAT, L100.0500 ####[facility] [address] [place], [address] Platelet mean volume (Bld) [Entitic vol] 10.1 fL Normal 6.2-12.0 [facility] Comment on above: Performed By: #### L 500.2500, BTSPAT, L100.0500 ####[facility] [address] [place], [address] Platelets (Bld) [#/Vol] 116 10*3/uL Low 150-450 [facility] Comment on above: Performed By: #### L 500.2500, BTSPAT, L100.0500 ####[facility] [address] [place], [address] RBC (Bld) [#/Vol] 2.43 10*6/uL Low 4.6-6.[address] [facility] Comment on above: Performed By: #### L 500.2500, BTSPAT, L100.0500 ####[facility] [address] [place], [address] RDW SD 48.3 fl High 35.1-43.9 [facility] Comment on above: Performed By: #### L 500.2500, BTSPAT, L100.0500 ####[facility] [address] [place], [address] WBC (Bld) [#/Vol] 3.6 10*3/uL Low 4.4-11.0 [facility] Comment on above: Performed By: #### L 500.2500, BTSPAT, L100.0500 ####[facility] [address] [place], [address] Discharge Instructionon 06-29 Discharge Instruction Normal [facility] MR/POSTOP.ANEon 07-23-2024 MR/POSTOP.ANE Normal [facility] MR/RXLCJEHT3pk 07-23-2024 MR/POSTOPAN2 Normal [facility] Operative Reporton Operative Report Normal [facility] Type AND Screen - PAT ONLYon 07-23-2024 ABO and Rh group Nom (Bld) Blood group O Rh(D) positive Normal [facility] Comment on above: Order Comment: Surge ry Date: 07/23/24Reason for Laboratory Test [id number] FISTULA CREATION Performed By: #### L 500.2500, BTSPAT, L100.0500 ####[facility] [address] [place], [address] MR/BMS.BVSon 07-19-2024 MR/BMS.BVS Normal [facility] Bedside Glucoseon 07-10-2024 FINGERSTICK GLU 112 mg/dL High 74-106 [facility] Comment on above: Result Comment: AAMIR GEMENT OF PATIENT CARE PER NURSING PROTOCOL Performed By: #### L 501.080 ####[facility] [address] [place], [address] FINGERSTICK GLU 149 mg/dL High 74-106 [facility] Comment on above: Result Comment: AAMIR GEMENT OF PATIENT CARE PER NURSING PROTOCOL Performed By: #### L 501.080 ####[facility] [address] [place], [address] FINGERSTICK GLU 164 mg/dL High 74-106 [facility] Comment on above: Result Comment: AAMIR QUIROGA OF PATIENT CARE PER NURSING PROTOCOL Performed By: #### L 501.080 ####[facility] [address] [place], [address] CBC-Complete Blood Cnt No Di ffon 07-10-2024 Erythrocyte distribution width (RBC) [Ratio] 13.9 % Normal 11.6-14.6 [facility] Comment on above: Performed By: #### L 100.0500 ####[facility] [address] [place], [address] Hematocrit (Bld) [Volume fraction] 24.9 % Low 40-54 [facility] Comment on above: Performed By: #### L 100.0500 ####[facility] [address] [place], [address] Hemoglobin (Bld) [Mass/Vol] 8.6 g/dL Low 13.0-16.5 [facility] Comment on above: Performed By: #### L 100.0500 ####[facility] [address] [place], [address] MCH (RBC) [Entitic mass] 30.2 pg Normal 27.0-32.0 [facility] Comment on above: Performed By: #### L 100.0500 ####[facility] [address] [place], [address] MCHC (RBC) [Mass/Vol] 34.5 g/dL Normal 32-36 [facility] Comment on above: Performed By: #### L 100.0500 ####[facility] [address] [place], [address] MCV (RBC) [Entitic vol] 87.4 fL Normal 80-94 [facility] Comment on above: Performed By: #### L 100.0500 ####[facility] [address] [place], [address] Platelet mean volume (Bld) [Entitic vol] 10.3 fL Normal 6.2-12.0 [facility] Comment on above: Performed By: #### L 100.0500 ####[facility] [address] [place], [address] Platelets (Bld) [#/Vol] 168 10*3/uL Normal 150-450 [facility] Comment on above: Performed By: #### L 100.0500 ####[facility] [address] [place], [address] RBC (Bld) [#/Vol] 2.85 10*6/uL Low 4.6-6.[address] [facility] Comment on above: Performed By: #### L 100.0500 ####[facility] [address] [place], [address] RDW SD 44.2 fl High 35.1-43.9 [facility] Comment on above: Performed By: #### L 100.0500 ####[facility] [address] [place], [address] WBC (Bld) [#/Vol] 5.7 10*3/uL Normal 4.4-11.0 [facility] Comment on above: Performed By: #### L 100.0500 ####[facility] [address] [place], [address] Discharge Instructionon 06-28 Discharge Instruction Normal [facility] Renal Profileon 07-10-2024 Albumin [Mass/Vol] 2.5 g/dL Low 3.2-5.0 [facility] Comment on above: Performed By: #### L 500.3600 ####[facility] [address] [place], [address] BUN/CRE 9.7 RATIO Low 10-20 [facility] Comment on above: Performed By: #### L 500.3600 ####[facility] [address] [place], [address] CA,Total 7.9 mg/dL Low 8.5-10.1 [facility] Comment on above: Performed By: #### L 500.3600 ####[facility] [address] [place], [address] Chloride [Moles/Vol] 98 mmol/L Normal 98-107 [facility] Comment on above: Performed By: #### L 500.3600 ####[facility] [address] [place], [address] CO2 [Moles/Vol] 22.0 mmol/L Normal 21.0-32.0 [facility] Comment on above: Performed By: #### L 500.3600 ####[facility] [address] [place], [address] Creatinine [Mass/Vol] 5.47 mg/dL High 0.70-1.30 [facility] Comment on above: Result Comment: The validity of the calculated GFR GFRAA in patients over70 years has not been determined. Clinical correlation isessential. Performed By: #### L 500.3600 ####[facility] [address] [place], [address] ECRCL 17.13 ml/min Normal [facility] Comment on above: Performed By: #### L 500.3600 ####[facility] [address] [place], [address] EST GFR - AA 14 mL/min Low >60 [facility] Comment on above: Result Comment: Afri can Indian GFR Calc Performed By: #### L 500.3600 ####[facility] [address] [place], [address] GFR/1.73 sq M.predicted among non-blacks MDRD (S/P/Bld) [Vol rate/Area] 12 mL/min/{1.73_m2} Low >60 [facility] Comment on above: Result Comment: Non- GFR Calc Performed By: #### L 500.3600 ####[facility] [address] [place], [address] Glucose [Mass/Vol] 152 mg/dL High 74-106 [facility] Comment on above: Result Comment: Fast ing Glucose result greater than or equal to 126 mg/dLsuggests DIABETES MELLITUS per A.D.A. criteria. Performed By: #### L 500.3600 ####[facility] [address] [place], [address] Phosphate [Mass/Vol] 4.8 mg/dL Normal 2.5-4.9 [facility] Comment on above: Performed By: #### L 500.3600 ####[facility] [address] [place], [address] Potassium [Moles/Vol] 4.3 mmol/L Normal 3.5-5.1 [facility] Comment on above: Performed By: #### L 500.3600 ####[facility] [address] [place], [address] Sodium [Moles/Vol] 128 mmol/L Low 136-145 [facility] Comment on above: Performed By: #### L 500.3600 ####[facility] [address] [place], [address] Urea nitrogen [Mass/Vol] 53 mg/dL High 7-18 [facility] Comment on above: Performed By: #### L 500.3600 ####[facility] [address] [place], [address] Bedside Glucoseon 07-09-2024 FINGERSTICK GLU 161 mg/dL High 74-106 [facility] Comment on above: Result Comment: AAMIR GEMENT OF PATIENT CARE PER NURSING PROTOCOL Performed By: #### L 501.080 ####[facility] [address] [place], [address] FINGERSTICK GLU 188 mg/dL High 74-106 [facility] Comment on above: Result Comment: AAMIR GEMENT OF PATIENT CARE PER NURSING PROTOCOL Performed By: #### L 501.080 ####[facility] [address] [place], [address] FINGERSTICK GLU 191 mg/dL High 74-106 [facility] Comment on above: Result Comment: AAMIR GEMENT OF PATIENT CARE PER NURSING PROTOCOL Performed By: #### L 501.080 ####[facility] [address] [place], [address] FINGERSTICK GLU 138 mg/dL High 74-106 [facility] Comment on above: Result Comment: AAMIR GEMENT OF PATIENT CARE PER NURSING PROTOCOL Performed By: #### L 501.080 ####[facility] [address] [place], [address] CBC W/Diff, Automatedon 06-28 Absolute Lymph 1.17 X10 3/uL Normal 0.83-4.51 [facility] Comment on above: Performed By: #### L 500.4050, L100.0100 ####[facility] [address] [place], [address] Absolute Neut 3.0 X10 3/uL Normal 2.0-7.7 [facility] Comment on above: Performed By: #### L 500.4050, L100.0100 ####[facility] [address] [place], [address] Basophils/100 WBC (Bld) 0.4 % Normal 0-1 [facility] Comment on above: Performed By: #### L 500.4050, L100.0100 ####[facility] [address] [place], [address] Eosinophils/100 WBC (Bld) 3.0 % Normal 0-5 [facility] Comment on above: Performed By: #### L 500.4050, L100.0100 ####[facility] [address] [place], [address] Erythrocyte distribution width (RBC) [Ratio] 13.8 % Normal 11.6-14.6 [facility] Comment on above: Performed By: #### L 500.4050, L100.0100 ####[facility] [address] [place], [address] Hematocrit (Bld) [Volume fraction] 22.0 % Low 40-54 [facility] Comment on above: Performed By: #### L 500.4050, L100.0100 ####[facility] [address] [place], [address] Hemoglobin (Bld) [Mass/Vol] 7.4 g/dL Low 13.0-16.5 [facility] Comment on above: Performed By: #### L 500.4050, L100.0100 ####[facility] [address] [place], [address] IG% 0.700 Normal 0.0-0.9 [facility] Comment on above: Result Comment: IG% - Immature Granulocytes (promyelocytes, myelocytes andmetamyelocytes) > 1% indicates that a LEFT SHIFT is Present. Performed By: #### L 500.4050, L100.0100 ####[facility] [address] [place], [address] Lymphocytes/100 WBC (Bld) 25.4 % Normal 19-41 [facility] Comment on above: Performed By: #### L 500.4050, L100.0100 ####[facility] [address] [place], [address] MCH (RBC) [Entitic mass] 29.1 pg Normal 27.0-32.0 [facility] Comment on above: Performed By: #### L 500.4050, L100.0100 ####[facility] [address] [place], [address] MCHC (RBC) [Mass/Vol] 33.6 g/dL Normal 32-36 [facility] Comment on above: Performed By: #### L 500.4050, L100.0100 ####[facility] [address] [place], [address] MCV (RBC) [Entitic vol] 86.6 fL Normal 80-94 [facility] Comment on above: Performed By: #### L 500.4050, L100.0100 ####[facility] [address] [place], [address] Monocytes/100 WBC (Bld) 6.3 % Normal 0-10 [facility] Comment on above: Performed By: #### L 500.4050, L100.0100 ####[facility] [address] [place], [address] Neutrophils/100 WBC (Bld) 64.2 % Normal 47-70 [facility] Comment on above: Performed By: #### L 500.4050, L100.0100 ####[facility] [id number] [place], [address] Nucleated RBC (Bld) [#/Vol] 0 10*3/uL Normal 0-5 [facility] Comment on above: Performed By: #### L 500.4050, L100.0100 ####[facility] [id number] [place], [address] Platelet mean volume (Bld) [Entitic vol] 10.6 fL Normal 6.2-12.0 [facility] Comment on above: Performed By: #### L 500.4050, L100.0100 ####[facility] [address] [place], [address] Platelets (Bld) [#/Vol] 147 10*3/uL Low 150-450 [facility] Comment on above: Performed By: #### L 500.4050, L100.0100 ####[facility] [address] [place], [address] RBC (Bld) [#/Vol] 2.54 10*6/uL Low 4.6-6.[address] [facility] Comment on above: Performed By: #### L 500.4050, L100.0100 ####[facility] [address] [place], [address] RDW SD 43.2 fl Normal 35.1-43.9 [facility] Comment on above: Performed By: #### L 500.4050, L100.0100 ####[facility] [address] [place], [address] WBC (Bld) [#/Vol] 4.6 10*3/uL Normal 4.4-11.0 [facility] Comment on above: Performed By: #### L 500.4050, L100.0100 ####[facility] [address] [place], [address] Comprehensive Metabolic Prof [facility] 07-09-2024 Albumin [Mass/Vol] 2.2 g/dL Low 3.2-5.0 [facility] Comment on above: Performed By: #### L 500.4050, L100.0100 ####[facility] [address] [place], [address] Albumin/Globulin [Mass ratio] 0.7 {ratio} Low 0.9-2.4 [facility] Comment on above: Performed By: #### L 500.4050, L100.0100 ####[facility] [address] [place], [address] ALK P 41 U/L Low 45-117 [facility] Comment on above: Performed By: #### L 500.4050, L100.0100 ####[facility] [address] [place], [address] ALT [Catalytic activity/Vol] U/L Low 16-61 [facility] Comment on above: Performed By: #### L 500.4050, L100.0100 ####[facility] [address] [place], [address] AST [Catalytic activity/Vol] 20 U/L Normal 15-37 [facility] Comment on above: Performed By: #### L 500.4050, L100.0100 ####[facility] [address] [place], [address] Bilirubin [Mass/Vol] 0.20 mg/dL Normal 0.20-1.00 [facility] Comment on above: Result Comment: For patients on eltrombopag therapy, use of Dimension [place] TBIL is not recommended. Performed By: #### L 500.4050, L100.0100 ####[facility] [address] [place], [address] BUN/CRE 9.0 RATIO Low 10-20 [facility] Comment on above: Performed By: #### L 500.4050, L100.0100 ####[facility] [address] [place], [address] CA,Total 7.9 mg/dL Low 8.5-10.1 [facility] Comment on above: Performed By: #### L 500.4050, L100.0100 ####[facility] [address] [place], [address] Chloride [Moles/Vol] 102 mmol/L Normal 98-107 [facility] Comment on above: Performed By: #### L 500.4050, L100.0100 ####[facility] [address] [place], [address] CO2 [Moles/Vol] 23.0 mmol/L Normal 21.0-32.0 [facility] Comment on above: Performed By: #### L 500.4050, L100.0100 ####[facility] [address] [place], [address] Creatinine [Mass/Vol] 5.66 mg/dL High 0.70-1.30 [facility] Comment on above: Result Comment: The validity of the calculated GFR GFRAA in patients over70 years has not been determined. Clinical correlation isessential. Performed By: #### L 500.4050, L100.0100 ####[facility] [address] [place], [address] ECRCL 16.43 ml/min Normal [facility] Comment on above: Performed By: #### L 500.4050, L100.0100 ####[facility] [address] [place], [address] EST GFR - AA 14 mL/min Low >60 [facility] Comment on above: Result Comment: Afri can Indian GFR Calc Performed By: #### L 500.4050, L100.0100 ####[facility] [address] [place], [address] GAP 7 Normal 5-15 [facility] Comment on above: Performed By: #### L 500.4050, L100.0100 ####[facility] [address] [place], [address] GFR/1.73 sq M.predicted among non-blacks MDRD (S/P/Bld) [Vol rate/Area] 11 mL/min/{1.73_m2} Low >60 [facility] Comment on above: Result Comment: Non- GFR Calc Performed By: #### L 500.4050, L100.0100 ####[facility] [address] [place], [address] Globulin (S) [Mass/Vol] 3.1 g/dL Normal 2.2-4.2 [facility] Comment on above: Performed By: #### L 500.4050, L100.0100 ####[facility] [address] [place], [address] Glucose [Mass/Vol] 139 mg/dL High 74-106 [facility] Comment on above: Result Comment: Fast ing Glucose result greater than or equal to 126 mg/dLsuggests DIABETES MELLITUS per A.D.A. criteria. Performed By: #### L 500.4050, L100.0100 ####[facility] [address] [place], [address] Potassium [Moles/Vol] 4.3 mmol/L Normal 3.5-5.1 [facility] Comment on above: Performed By: #### L 500.4050, L100.0100 ####[facility] [address] [place], [address] Sodium [Moles/Vol] 132 mmol/L Low 136-145 [facility] Comment on above: Performed By: #### L 500.4050, L100.0100 ####[facility] [address] [place], [address] T PROT 5.3 g/dL Low 6.4-8.2 [facility] Comment on above: Performed By: #### L 500.4050, L100.0100 ####[facility] [address] [place], [address] Urea nitrogen [Mass/Vol] 51 mg/dL High 7-18 [facility] Comment on above: Performed By: #### L 500.4050, L100.0100 ####[facility] [address] [place], [address] Bedside Glucoseon 07-08-2024 FINGERSTICK GLU 137 mg/dL High 74-106 [facility] Comment on above: Result Comment: AAMIR GEMENT OF PATIENT CARE PER NURSING PROTOCOL Performed By: #### L 501.080 ####[facility] [address] [place], [address] FINGERSTICK GLU 144 mg/dL High 74-106 [facility] Comment on above: Result Comment: AAMIR GEMENT OF PATIENT CARE PER NURSING PROTOCOL Performed By: #### L 501.080 ####[facility] [address] [place], [address] FINGERSTICK GLU 161 mg/dL High -106 [facility] Comment on above: Result Comment: AAMIR GEMENT OF PATIENT CARE PER NURSING PROTOCOL Performed By: #### L 501.080 ####[facility] [address] [place], [address] FINGERSTICK GLU 136 mg/dL High -106 [facility] Comment on above: Result Comment: AAMIR GEMENT OF PATIENT CARE PER NURSING PROTOCOL Performed By: #### L 501.080 ####[facility] [address] [place], [address] CBC W/Diff, Automatedon 06-28 Absolute Lymph 1.15 X10 3/uL Normal 0.83-4.51 [facility] Comment on above: Performed By: #### L 100.0100, L500.4050 ####[facility] [address] [place], [address] Absolute Neut 2.7 X10 3/uL Normal 2.0-7.7 [facility] Comment on above: Performed By: #### L 100.0100, L500.4050 ####[facility] [address] [place], [address] Basophils/100 WBC (Bld) 0.7 % Normal 0-1 [facility] Comment on above: Performed By: #### L 100.0100, L500.4050 ####[facility] [address] [place], [address] Eosinophils/100 WBC (Bld) 1.9 % Normal 0-5 [facility] Comment on above: Performed By: #### L 100.0100, L500.4050 ####[facility] [address] [place], [address] Erythrocyte distribution width (RBC) [Ratio] 13.9 % Normal 11.6-14.6 [facility] Comment on above: Performed By: #### L 100.0100, L500.4050 ####[facility] [address] [place], [address] Hematocrit (Bld) [Volume fraction] 21.9 % Low 40-54 [facility] Comment on above: Performed By: #### L 100.0100, L500.4050 ####[facility] [address] [place], [address] Hemoglobin (Bld) [Mass/Vol] 7.3 g/dL Low 13.0-16.5 [facility] Comment on above: Performed By: #### L 100.0100, L500.4050 ####[facility] [address] [place], [address] IG% 0.700 Normal 0.0-0.9 [facility] Comment on above: Result Comment: IG% - Immature Granulocytes (promyelocytes, myelocytes andmetamyelocytes) > 1% indicates that a LEFT SHIFT is Present. Performed By: #### L 100.0100, L500.4050 ####[facility] [address] [place], [address] Lymphocytes/100 WBC (Bld) 26.7 % Normal 19-41 [facility] Comment on above: Performed By: #### L 100.0100, L500.4050 ####[facility] [address] [place], [address] MCH (RBC) [Entitic mass] 29.4 pg Normal 27.0-32.0 [facility] Comment on above: Performed By: #### L 100.0100, L500.4050 ####[facility] [address] [place], [address] MCHC (RBC) [Mass/Vol] 33.3 g/dL Normal 32-36 [facility] Comment on above: Performed By: #### L 100.0100, L500.4050 ####[facility] [address] [place], [address] MCV (RBC) [Entitic vol] 88.3 fL Normal 80-94 [facility] Comment on above: Performed By: #### L 100.0100, L500.4050 ####[facility] [address] [place], [address] Monocytes/100 WBC (Bld) 6.7 % Normal 0-10 [facility] Comment on above: Performed By: #### L 100.0100, L500.4050 ####[facility] [address] [place], [address] Neutrophils/100 WBC (Bld) 63.3 % Normal 47-70 [facility] Comment on above: Performed By: #### L 100.0100, L500.4050 ####[facility] [address] [place], [address] Nucleated RBC (Bld) [#/Vol] 0 10*3/uL Normal 0-5 [facility] Comment on above: Performed By: #### L 100.0100, L500.4050 ####[facility] [address] [place], [address] Platelet mean volume (Bld) [Entitic vol] 10.2 fL Normal 6.2-12.0 [facility] Comment on above: Performed By: #### L 100.0100, L500.4050 ####[facility] [address] [place], [address] Platelets (Bld) [#/Vol] 112 10*3/uL Low 150-450 [facility] Comment on above: Performed By: #### L 100.0100, L500.4050 ####[facility] [address] [place], [address] RBC (Bld) [#/Vol] 2.48 10*6/uL Low 4.6-6.[address] [facility] Comment on above: Performed By: #### L 100.0100, L500.4050 ####[facility] [address] [place], [address] RDW SD 44.8 fl High 35.1-43.9 [facility] Comment on above: Performed By: #### L 100.0100, L500.4050 ####[facility] [address] [place], [address] WBC (Bld) [#/Vol] 4.3 10*3/uL Low 4.4-11.0 [facility] Comment on above: Performed By: #### L 100.0100, L500.4050 ####[facility] [address] [place], [address] CORTISOL SERUMon 07-08-2024 CORTISOL 28.60 ug/dL High 3.44-22.45 [facility] Comment on above: Order Comment: 60M Result Comment: Adul t (AM) 5.27 - 22.45 ug/dL Adult (PM) 3.44 - 16.76 ug/dL Performed By: #### L 509.6000 ####[facility] [address] [place], [address] CORTISOL 17.80 ug/dL Normal 3.44-22.45 [facility] Comment on above: Order Comment: B Result Comment: Adul t (AM) 5.27 - 22.45 ug/dL Adult (PM) 3.44 - 16.76 ug/dL Performed By: #### L 509.6000 ####[facility] [address] [place], [address] Comprehensive Metabolic Prof ilon 07-08-2024 Albumin [Mass/Vol] 2.2 g/dL Low 3.2-5.0 [facility] Comment on above: Performed By: #### L 100.0100, L500.4050 ####[facility] [address] [place], [address] Albumin/Globulin [Mass ratio] 0.7 {ratio} Low 0.9-2.4 [facility] Comment on above: Performed By: #### L 100.0100, L500.4050 ####[facility] [address] [place], [address] ALK P 45 U/L Normal 45-117 [facility] Comment on above: Performed By: #### L 100.0100, L500.4050 ####[facility] [address] [place], [address] ALT [Catalytic activity/Vol] U/L Low 16-61 [facility] Comment on above: Performed By: #### L 100.0100, L500.4050 ####[facility] [address] [place], [address] AST [Catalytic activity/Vol] 7 U/L Low 15-37 [facility] Comment on above: Performed By: #### L 100.0100, L500.4050 ####[facility] [address] [place], [address] Bilirubin [Mass/Vol] 0.30 mg/dL Normal 0.20-1.00 [facility] Comment on above: Result Comment: For patients on eltrombopag therapy, use of Dimension [place] TBIL is not recommended. Performed By: #### L 100.0100, L500.4050 ####[facility] [address] [place], [address] BUN/CRE 9.5 RATIO Low 10-20 [facility] Comment on above: Performed By: #### L 100.0100, L500.4050 ####[facility] [address] [place], [address] CA,Total 7.7 mg/dL Low 8.5-10.1 [facility] Comment on above: Performed By: #### L 100.0100, L500.4050 ####[facility] [address] [place], [address] Chloride [Moles/Vol] 103 mmol/L Normal 98-107 [facility] Comment on above: Performed By: #### L 100.0100, L500.4050 ####[facility] [address] [place], [address] CO2 [Moles/Vol] 20.0 mmol/L Low 21.0-32.0 [facility] Comment on above: Performed By: #### L 100.0100, L500.4050 ####[facility] [address] [place], [address] Creatinine [Mass/Vol] 7.30 mg/dL High 0.70-1.30 [facility] Comment on above: Result Comment: The validity of the calculated GFR GFRAA in patients over70 years has not been determined. Clinical correlation isessential. Performed By: #### L 100.0100, L500.4050 ####[facility] [address] [place], [address] ECRCL 12.69 ml/min Normal [facility] Comment on above: Performed By: #### L 100.0100, L500.4050 ####[facility] [address] [place], [address] EST GFR - AA 10 mL/min Low >60 [facility] Comment on above: Result Comment: Afri can Indian GFR Calc Performed By: #### L 100.0100, L500.4050 ####[facility] [address] [place], [address] GAP 9 Normal 5-15 [facility] Comment on above: Performed By: #### L 100.0100, L500.4050 ####[facility] [address] [place], [address] GFR/1.73 sq M.predicted among non-blacks MDRD (S/P/Bld) [Vol rate/Area] 8 mL/min/{1.73_m2} Low >60 [facility] Comment on above: Result Comment: Non- GFR Calc Performed By: #### L 100.0100, L500.4050 ####[facility] [address] [place], [address] Globulin (S) [Mass/Vol] 3.2 g/dL Normal 2.2-4.2 [facility] Comment on above: Performed By: #### L 100.0100, L500.4050 ####[facility] [address] [place], [address] Glucose [Mass/Vol] 172 mg/dL High 74-106 [facility] Comment on above: Result Comment: Fast ing Glucose result greater than or equal to 126 mg/dLsuggests DIABETES MELLITUS per A.D.A. criteria. Performed By: #### L 100.0100, L500.4050 ####[facility] [address] [place], [address] Potassium [Moles/Vol] 4.3 mmol/L Normal 3.5-5.1 [facility] Comment on above: Performed By: #### L 100.0100, L500.4050 ####[facility] [address] [place], [address] Sodium [Moles/Vol] 132 mmol/L Low 136-145 [facility] Comment on above: Performed By: #### L 100.0100, L500.4050 ####[facility] [address] [place], [address] T PROT 5.4 g/dL Low 6.4-8.2 [facility] Comment on above: Performed By: #### L 100.0100, L500.4050 ####[facility] [address] [place], [address] Urea nitrogen [Mass/Vol] 69 mg/dL High 7-18 [facility] Comment on above: Performed By: #### L 100.0100, L500.4050 ####[facility] [address] [place], [address] Phosphoruson 07-08-2024 Phosphate [Mass/Vol] 6.1 mg/dL High 2.5-4.9 [facility] Comment on above: Performed By: #### L 501.2300 ####[facility] [address] [place], [address] Bedside Glucoseon 07-07-2024 FINGERSTICK GLU 189 mg/dL High 74-106 [facility] Comment on above: Result Comment: AAMIR GEMENT OF PATIENT CARE PER NURSING PROTOCOL Performed By: #### L 501.080 ####[facility] [address] [place], [address] FINGERSTICK GLU 154 mg/dL High 74-106 [facility] Comment on above: Result Comment: AAMIR GEMENT OF PATIENT CARE PER NURSING PROTOCOL Performed By: #### L 501.080 ####[facility] [address] [place], [address] FINGERSTICK GLU 87 mg/dL Normal 74-106 [facility] Comment on above: Result Comment: AAMIR QUIROGA OF PATIENT CARE PER NURSING PROTOCOL Performed By: #### L 501.080 ####[facility] [address] [place], [address] CBC W/Diff, Automatedon 11-1 0-2024 Absolute Lymph 1.11 X10 3/uL Normal 0.83-4.51 [facility] Comment on above: Performed By: #### L 100.0100, L500.4100, L500.4050 ####[facility] [address] [place], [address] Absolute Neut 3.0 X10 3/uL Normal 2.0-7.7 [facility] Comment on above: Performed By: #### L 100.0100, L500.4100, L500.4050 ####[facility] [address] [place], [address] Basophils/100 WBC (Bld) 0.4 % Normal 0-1 [facility] Comment on above: Performed By: #### L 100.0100, L500.4100, L500.4050 ####[facility] [address] [place], [address] Eosinophils/100 WBC (Bld) 2.0 % Normal 0-5 [facility] Comment on above: Performed By: #### L 100.0100, L500.4100, L500.4050 ####[facility] [address] [place], [address] Erythrocyte distribution width (RBC) [Ratio] 14.0 % Normal 11.6-14.6 [facility] Comment on above: Performed By: #### L 100.0100, L500.4100, L500.4050 ####[facility] [address] [place], [address] Hematocrit (Bld) [Volume fraction] 22.6 % Low 40-54 [facility] Comment on above: Performed By: #### L 100.0100, L500.4100, L500.4050 ####[facility] [address] [place], [address] Hemoglobin (Bld) [Mass/Vol] 7.5 g/dL Low 13.0-16.5 [facility] Comment on above: Performed By: #### L 100.0100, L500.4100, L500.4050 ####[facility] [address] [place], [address] IG% 0.400 Normal 0.0-0.9 [facility] Comment on above: Result Comment: IG% - Immature Granulocytes (promyelocytes, myelocytes andmetamyelocytes) > 1% indicates that a LEFT SHIFT is Present. Performed By: #### L 100.0100, L500.4100, L500.4050 ####[facility] [address] [place], [address] Lymphocytes/100 WBC (Bld) 24.3 % Normal 19-41 [facility] Comment on above: Performed By: #### L 100.0100, L500.4100, L500.4050 ####[facility] [address] [place], [address] MCH (RBC) [Entitic mass] 29.3 pg Normal 27.0-32.0 [facility] Comment on above: Performed By: #### L 100.0100, L500.4100, L500.4050 ####[facility] [address] [place], [address] MCHC (RBC) [Mass/Vol] 33.2 g/dL Normal 32-36 [facility] Comment on above: Performed By: #### L 100.0100, L500.4100, L500.4050 ####[facility] [address] [place], [address] MCV (RBC) [Entitic vol] 88.3 fL Normal 80-94 [facility] Comment on above: Performed By: #### L 100.0100, L500.4100, L500.4050 ####[facility] [address] [place], [address] Monocytes/100 WBC (Bld) 6.8 % Normal 0-10 [facility] Comment on above: Performed By: #### L 100.0100, L500.4100, L500.4050 ####[facility] [address] [place], [address] Neutrophils/100 WBC (Bld) 66.1 % Normal 47-70 [facility] Comment on above: Performed By: #### L 100.0100, L500.4100, L500.4050 ####[facility] [address] [place], [address] Nucleated RBC (Bld) [#/Vol] 0 10*3/uL Normal 0-5 [facility] Comment on above: Performed By: #### L 100.0100, L500.4100, L500.4050 ####[facility] [address] [place], [address] Platelet mean volume (Bld) [Entitic vol] 10.1 fL Normal 6.2-12.0 [facility] Comment on above: Performed By: #### L 100.0100, L500.4100, L500.4050 ####[facility] [address] [place], [address] Platelets (Bld) [#/Vol] 120 10*3/uL Low 150-450 [facility] Comment on above: Performed By: #### L 100.0100, L500.4100, L500.4050 ####[facility] [address] [place], [address] RBC (Bld) [#/Vol] 2.56 10*6/uL Low 4.6-6.[address] [facility] Comment on above: Performed By: #### L 100.0100, L500.4100, L500.4050 ####[facility] [address] [place], [address] RDW SD 45.5 fl High 35.1-43.9 [facility] Comment on above: Performed By: #### L 100.0100, L500.4100, L500.4050 ####[facility] [address] [place], [address] WBC (Bld) [#/Vol] 4.6 10*3/uL Normal 4.4-11.0 [facility] Comment on above: Performed By: #### L 100.0100, L500.4100, L500.4050 ####[facility] [address] [place], [address] Comprehensive Metabolic Prof [facility] 07-07-2024 Albumin [Mass/Vol] 2.2 g/dL Low 3.2-5.0 [facility] Comment on above: Order Comment: Comme nts: add to AM labs from today. Performed By: #### L 100.0100, L500.4100, L500.4050 ####[facility] [address] [place], [address] Albumin/Globulin [Mass ratio] 0.7 {ratio} Low 0.9-2.4 [facility] Comment on above: Order Comment: Comme nts: add to AM labs from today. Performed By: #### L 100.0100, L500.4100, L500.4050 ####[facility] [address] [place], [address] ALK P 45 U/L Normal 45-117 [facility] Comment on above: Order Comment: Comme nts: add to AM labs from today. Performed By: #### L 100.0100, L500.4100, L500.4050 ####[facility] [address] [place], [address] ALT [Catalytic activity/Vol] U/L Low 16-61 [facility] Comment on above: Order Comment: Comme nts: add to AM labs from today. Performed By: #### L 100.0100, L500.4100, L500.4050 ####[facility] [address] [place], [address] AST [Catalytic activity/Vol] 7 U/L Low 15-37 [facility] Comment on above: Order Comment: Comme nts: add to AM labs from today. Performed By: #### L 100.0100, L500.4100, L500.4050 ####[facility] [address] [place], [address] Bilirubin [Mass/Vol] 0.30 mg/dL Normal 0.20-1.00 [facility] Comment on above: Order Comment: Comme nts: add to AM labs from today. Result Comment: For patients on eltrombopag therapy, use of Dimension [place] TBIL is not recommended. Performed By: #### L 100.0100, L500.4100, L500.4050 ####[facility] [address] [place], [address] BUN/CRE 9.0 RATIO Low 10-20 [facility] Comment on above: Order Comment: Comme nts: add to AM labs from today. Performed By: #### L 100.0100, L500.4100, L500.4050 ####[facility] [address] [place], [address] [place],Total 7.8 mg/dL Low 8.5-10.1 [facility] Comment on above: Order Comment: Comme nts: add to AM labs from today. Performed By: #### L 100.0100, L500.4100, L500.4050 ####[facility] [address] [place], [address] Chloride [Moles/Vol] 106 mmol/L Normal 98-107 [facility] Comment on above: Order Comment: Comme nts: add to AM labs from today. Performed By: #### L 100.0100, L500.4100, L500.4050 ####[facility] [address] [place], [address] CO2 [Moles/Vol] 19.0 mmol/L Low 21.0-32.0 [facility] Comment on above: Order Comment: Comme nts: add to AM labs from today. Performed By: #### L 100.0100, L500.4100, L500.4050 ####[facility] [address] [place], [address] Creatinine [Mass/Vol] 6.69 mg/dL High 0.70-1.30 [facility] Comment on above: Order Comment: Comme nts: add to AM labs from today. Result Comment: The validity of the calculated GFR GFRAA in patients over70 years has not been determined. Clinical correlation isessential. Performed By: #### L 100.0100, L500.4100, L500.4050 ####[facility] [address] [place], [address] ECRCL 13.84 ml/min Normal [facility] Comment on above: Order Comment: Comme nts: add to AM labs from today. Performed By: #### L 100.0100, L500.4100, L500.4050 ####[facility] [address] [place], [address] EST GFR - AA 11 mL/min Low >60 [facility] Comment on above: Order Comment: Comme nts: add to AM labs from today. Result Comment: Afri can Indian GFR Calc Performed By: #### L 100.0100, L500.4100, L500.4050 ####[facility] [address] [place], [address] GAP 10 Normal 5-15 [facility] Comment on above: Order Comment: Comme nts: add to AM labs from today. Performed By: #### L 100.0100, L500.4100, L500.4050 ####[facility] [address] [place], [address] GFR/1.73 sq M.predicted among non-blacks MDRD (S/P/Bld) [Vol rate/Area] 9 mL/min/{1.73_m2} Low >60 [facility] Comment on above: Order Comment: Comme nts: add to AM labs from today. Result Comment: Non- GFR Calc Performed By: #### L 100.0100, L500.4100, L500.4050 ####[facility] [address] [place], [address] Globulin (S) [Mass/Vol] 3.2 g/dL Normal 2.2-4.2 [facility] Comment on above: Order Comment: Comme nts: add to AM labs from today. Performed By: #### L 100.0100, L500.4100, L500.4050 ####[facility] [address] [place], [address] Glucose [Mass/Vol] 92 mg/dL Normal 74-106 [facility] Comment on above: Order Comment: Comme nts: add to AM labs from today. Performed By: #### L 100.0100, L500.4100, L500.4050 ####[facility] [address] [place], [address] Potassium [Moles/Vol] 4.3 mmol/L Normal 3.5-5.1 [facility] Comment on above: Order Comment: Comme nts: add to AM labs from today. Performed By: #### L 100.0100, L500.4100, L500.4050 ####[facility] [address] [place], [address] Sodium [Moles/Vol] 135 mmol/L Low 136-145 [facility] Comment on above: Order Comment: Comme nts: add to AM labs from today. Performed By: #### L 100.0100, L500.4100, L500.4050 ####[facility] [address] [place], [address] T PROT 5.4 g/dL Low 6.4-8.2 [facility] Comment on above: Order Comment: Comme nts: add to AM labs from today. Performed By: #### L 100.0100, L500.4100, L500.4050 ####[facility] [address] [place], [address] Urea nitrogen [Mass/Vol] 60 mg/dL High 7-18 [facility] Comment on above: Order Comment: Comme nts: add to AM labs from today. Performed By: #### L 100.0100, L500.4100, L500.4050 ####[facility] [address] [place], [address] Lipid Profileon 07-07-2024 Cholesterol [Mass/Vol] 152 mg/dL Normal 200 [facility] Comment on above: Order Comment: Comme nts: add to AM labs from today. Result Comment: <200 mg/dL Desirable 200-240 mg/dL Borderline >240 mg/dL High Risk Performed By: #### L 100.0100, L500.4100, L500.4050 ####[facility] [address] [place], [address] Cholesterol in HDL [Mass/Vol] 34 mg/dL Low [facility] Comment on above: Order Comment: Comme nts: add to AM labs from today. Result Comment: The drugs N-Acetylcysteine and Metamizole may falselydepress this assay. Reference Range HDL <40 mg/dL Low HDL Cholesterol HDL >or= 60 mg/dL High HDL Cholesterol Performed By: #### L 100.0100, L500.4100, L500.4050 ####[facility] [address] [place], [address] Cholesterol in LDL [Mass/Vol] 69 mg/dL Normal 0-130 [facility] Comment on above: Order Comment: Comme nts: add to AM labs from today. Performed By: #### L 100.0100, L500.4100, L500.4050 ####[facility] [address] [place], [address] Cholesterol in VLDL [Mass/Vol] 49 mg/dL High 5-40 [facility] Comment on above: Order Comment: Comme nts: add to AM labs from today. Performed By: #### L 100.0100, L500.4100, L500.4050 ####[facility] [address] [place], [address] Triglyceride [Mass/Vol] 244 mg/dL High [facility] Comment on above: Order Comment: Comme nts: add to AM labs from today. Result Comment: The drugs N-Acetylcysteine and Metamizole may falselydepress this assay.Serum Triglycerides Reference Interval Normal <150 mg/dL Borderline high 150 - 199 mg/dL High 200 - 499 mg/dL Very High > or = 500 mg/dL Performed By: #### L 100.0100, L500.4100, L500.4050 ####[facility] [address] [place], [address] Bedside Glucoseon 07-06-2024 FINGERSTICK GLU 171 mg/dL High 74-106 [facility] Comment on above: Result Comment: AAMIR QUIROGA OF PATIENT CARE PER NURSING PROTOCOL Performed By: #### L 501.080 ####[facility] [address] [place], [address] FINGERSTICK GLU 110 mg/dL High [address] [place] [address] Comment on above: Result Comment: AAMIR GEMENT OF PATIENT CARE PER NURSING PROTOCOL Performed By: #### L 501.080 ####[facility] [address] [place], [address] FINGERSTICK GLU 182 mg/dL High [address] [place] [address] Comment on above: Result Comment: AAMIR GEMENT OF PATIENT CARE PER NURSING PROTOCOL Performed By: #### L 501.080 ####[facility] [address] [place], [address] FINGERSTICK GLU 218 mg/dL High [address] [place] [address] Comment on above: Result Comment: Dr Maame quiroz FollowedMANAGEMENT OF PATIENT CARE PER NURSING PROTOCOL Performed By: #### L 501.080 ####[facility] [address] [place], [address] FINGERSTICK GLU 126 mg/dL High [address] [place] [address] Comment on above: Result Comment: AAMIR GEMENT OF PATIENT CARE PER NURSING PROTOCOL Performed By: #### L 501.080 ####[facility] [address] [place], [address] Brain without Contraston Brain without Contrast Normal [facility] CBC W/Diff, Automatedon 11-0 Absolute Lymph 1.02 X10 3/uL Normal 0.83-4.51 [facility] Comment on above: Performed By: #### L 100.0100, L500.4050 ####[facility] [address] [place], [address] Absolute Neut 3.7 X10 3/uL Normal 2.0-7.7 [facility] Comment on above: Performed By: #### L 100.0100, L500.4050 ####[facility] [address] [place], [address] Basophils/100 WBC (Bld) 0.2 % Normal 0-1 [facility] Comment on above: Performed By: #### L 100.0100, L500.4050 ####[facility] [address] [place], [address] Eosinophils/100 WBC (Bld) 1.6 % Normal 0-5 [facility] Comment on above: Performed By: #### L 100.0100, L500.4050 ####[facility] [address] [place], [address] Erythrocyte distribution width (RBC) [Ratio] 14.4 % Normal 11.6-14.6 [facility] Comment on above: Performed By: #### L 100.0100, L500.4050 ####[facility] [address] [place], [address] Hematocrit (Bld) [Volume fraction] 24.1 % Low 40-54 [facility] Comment on above: Performed By: #### L 100.0100, L500.4050 ####[facility] [address] [place], [address] Hemoglobin (Bld) [Mass/Vol] 7.9 g/dL Low 13.0-16.5 [facility] Comment on above: Performed By: #### L 100.0100, L500.4050 ####[facility] [address] [place], [address] IG% 0.400 Normal 0.0-0.9 [facility] Comment on above: Result Comment: IG% - Immature Granulocytes (promyelocytes, myelocytes andmetamyelocytes) > 1% indicates that a LEFT SHIFT is Present. Performed By: #### L 100.0100, L500.4050 ####[facility] [address] [place], [address] Lymphocytes/100 WBC (Bld) 19.8 % Normal 19-41 [facility] Comment on above: Performed By: #### L 100.0100, L500.4050 ####[facility] [address] [place], [address] MCH (RBC) [Entitic mass] 29.3 pg Normal 27.0-32.0 [facility] Comment on above: Performed By: #### L 100.0100, L500.4050 ####[facility] [address] [place], [address] MCHC (RBC) [Mass/Vol] 32.8 g/dL Normal 32-36 [facility] Comment on above: Performed By: #### L 100.0100, L500.4050 ####[facility] [address] [place], [address] MCV (RBC) [Entitic vol] 89.3 fL Normal 80-94 [facility] Comment on above: Performed By: #### L 100.0100, L500.4050 ####[facility] [address] [place], [address] Monocytes/100 WBC (Bld) 5.6 % Normal 0-10 [facility] Comment on above: Performed By: #### L 100.0100, L500.4050 ####[facility] [address] [place], [address] Neutrophils/100 WBC (Bld) 72.4 % High 47-70 [facility] Comment on above: Performed By: #### L 100.0100, L500.4050 ####[facility] [address] [place], [address] Nucleated RBC (Bld) [#/Vol] 0 10*3/uL Normal 0-5 [facility] Comment on above: Performed By: #### L 100.0100, L500.4050 ####[facility] [address] [place], [address] Platelet mean volume (Bld) [Entitic vol] 10.5 fL Normal 6.2-12.0 [facility] Comment on above: Performed By: #### L 100.0100, L500.4050 ####[facility] [address] [place], [address] Platelets (Bld) [#/Vol] 150 10*3/uL Normal 150-450 [facility] Comment on above: Performed By: #### L 100.0100, L500.4050 ####[facility] [address] [place], [address] RBC (Bld) [#/Vol] 2.70 10*6/uL Low 4.6-6.[address] [facility] Comment on above: Performed By: #### L 100.0100, L500.4050 ####[facility] [address] [place], [address] RDW SD 46.5 fl High 35.1-43.9 [facility] Comment on above: Performed By: #### L 100.0100, L500.4050 ####[facility] [address] [place], [address] WBC (Bld) [#/Vol] 5.2 10*3/uL Normal 4.4-11.0 [facility] Comment on above: Performed By: #### L 100.0100, L500.4050 ####[facility] [address] [place], [address] Comprehensive Metabolic Prof ilon 07-06-2024 Albumin [Mass/Vol] 2.4 g/dL Low 3.2-5.0 [facility] Comment on above: Performed By: #### L 100.0100, L500.4050 ####[facility] [address] [place], [address] Albumin/Globulin [Mass ratio] 0.8 {ratio} Low 0.9-2.4 [facility] Comment on above: Performed By: #### L 100.0100, L500.4050 ####[facility] [address] [place], [address] ALK P 45 U/L Normal 45-117 [facility] Comment on above: Performed By: #### L 100.0100, L500.4050 ####[facility] [address] [place], [address] ALT [Catalytic activity/Vol] 8 U/L Low 16-61 [facility] Comment on above: Performed By: #### L 100.0100, L500.4050 ####[facility] [address] [place], [address] AST [Catalytic activity/Vol] 3 U/L Low 15-37 [facility] Comment on above: Performed By: #### L 100.0100, L500.4050 ####[facility] [address] [place], [address] Bilirubin [Mass/Vol] 0.30 mg/dL Normal 0.20-1.00 [facility] Comment on above: Result Comment: For patients on eltrombopag therapy, use of Dimension [place] TBIL is not recommended. Performed By: #### L 100.0100, L500.4050 ####[facility] [address] [place], [address] BUN/CRE 9.4 RATIO Low 10-20 [facility] Comment on above: Performed By: #### L 100.0100, L500.4050 ####[facility] [address] [place], [address] CA,Total 8.0 mg/dL Low 8.5-10.1 [facility] Comment on above: Performed By: #### L 100.0100, L500.4050 ####[facility] [address] [place], [address] Chloride [Moles/Vol] 110 mmol/L High 98-107 [facility] Comment on above: Performed By: #### L 100.0100, L500.4050 ####[facility] [address] [place], [address] CO2 [Moles/Vol] 17.0 mmol/L Low 21.0-32.0 [facility] Comment on above: Performed By: #### L 100.0100, L500.4050 ####[facility] [address] [place], [address] Creatinine [Mass/Vol] 8.16 mg/dL Invalid Interpretation Code 0.70-1.30 [facility] Comment on above: Result Comment: Crit ical Result(s) Called at: 07:46:29 07/06/2024 by:Juana Alcazar to [facility]. Results read back by same.The validity of the calculated GFR GFRAA in patients over70 years has not been determined. Clinical correlation isessential. Performed By: #### L 100.0100, L500.4050 ####[facility] [address] [place], [address] ECRCL 11.38 ml/min Normal [facility] Comment on above: Performed By: #### L 100.0100, L500.4050 ####[facility] [address] [place], [address] EST GFR - AA 9 mL/min Low >60 [facility] Comment on above: Result Comment: Afri can Indian GFR Calc Performed By: #### L 100.0100, L500.4050 ####[facility] [address] [place], [address] GAP 8 Normal 5-15 [facility] Comment on above: Performed By: #### L 100.0100, L500.4050 ####[facility] [address] [place], [address] GFR/1.73 sq M.predicted among non-blacks MDRD (S/P/Bld) [Vol rate/Area] 7 mL/min/{1.73_m2} Low >60 [facility] Comment on above: Result Comment: Non- GFR Calc Performed By: #### L 100.0100, L500.4050 ####[facility] [address] [place], [address] Globulin (S) [Mass/Vol] 3.0 g/dL Normal 2.2-4.2 [facility] Comment on above: Performed By: #### L 100.0100, L500.4050 ####[facility] [address] [place], [address] Glucose [Mass/Vol] 127 mg/dL High 74-106 [facility] Comment on above: Result Comment: Fast ing Glucose result greater than or equal to 126 mg/dLsuggests DIABETES MELLITUS per A.D.A. criteria. Performed By: #### L 100.0100, L500.4050 ####[facility] [address] [place], [address] Potassium [Moles/Vol] 4.6 mmol/L Normal 3.5-5.1 [facility] Comment on above: Performed By: #### L 100.0100, L500.4050 ####[facility] [address] [place], [address] Sodium [Moles/Vol] 135 mmol/L Low 136-145 [facility] Comment on above: Performed By: #### L 100.0100, L500.4050 ####[facility] [address] [place], [address] T PROT 5.4 g/dL Low 6.4-8.2 [facility] Comment on above: Performed By: #### L 100.0100, L500.4050 ####[facility] [address] [place], [address] Urea nitrogen [Mass/Vol] 77 mg/dL High 7-18 [facility] Comment on above: Performed By: #### L 100.0100, L500.4050 ####[facility] [address] [place], [address] Echo Complete W/ Contraston 07-06-2024 Echo Complete W/ Contrast Normal [facility] Hemoglobin A1con 07-06-2024 HbA1c (Bld) [Mass fraction] 6.4 % High 3.8-5.6 [facility] Comment on above: Order Comment: Comme nts: add to am labs Result Comment: Norm al < 5.7 % Prediabetic 5.7 - 6.4 % Diabetic >or= 6.5 % Please note range changes. Performed By: #### L 501.9985, L501.9520 ####[facility] [address] [place], [place], [address] MR/CON.PCM.NEon 07-06-2024 MR/CON.PCM.NE Normal [facility] STROKE Brain/Head without Co nton 07-06-2024 STROKE Brain/Head without Cont Normal [facility] STROKE CTA Head AND Neck W/C onon 07-06-2024 STROKE CTA Head AND Neck W/Con Normal [facility] T4 Free Directon 07-06-2024 T4 FREE DIRECT 0.61 ng/dL Low 0.76-1.46 [facility] Comment on above: Order Comment: add t o am labs from earlier Performed By: #### L 506.0400 ####[facility] [address] [place], [place], [id number] Thyroid Stim Hormone (TSH)on 07-06-2024 TSH 0.294 uIU/mL Low 0.358-3.740 [facility] Comment on above: Order Comment: Comme nts: add to am labs Performed By: #### L 501.9985, L501.9520 ####[facility] [address] [place], [address] Bedside Glucoseon 07-05-2024 FINGERSTICK GLU 185 mg/dL High 74-106 [facility] Comment on above: Result Comment: AAMIR GEMENT OF PATIENT CARE PER NURSING PROTOCOL Performed By: #### L 501.080 ####[facility] [address] [place], [address] FINGERSTICK GLU 130 mg/dL High -106 [facility] Comment on above: Result Comment: AAMIR GEMENT OF PATIENT CARE PER NURSING PROTOCOL Performed By: #### L 501.080 ####[facility] [address] [place], [address] FINGERSTICK GLU 174 mg/dL High 74-106 [facility] Comment on above: Result Comment: AAMIR GEMENT OF PATIENT CARE PER NURSING PROTOCOL Performed By: #### L 501.080 ####[facility] [address] [place], [address] FINGERSTICK GLU 129 mg/dL High -106 [facility] Comment on above: Result Comment: AAMIR GEMENT OF PATIENT CARE PER NURSING PROTOCOL Performed By: #### L 501.080 ####[facility] [address] [place], [address] FINGERSTICK GLU 132 mg/dL High 74-106 [facility] Comment on above: Result Comment: AAMIR GEMENT OF PATIENT CARE PER NURSING PROTOCOL Performed By: #### L 501.080 ####[facility] [address] [place], [address] FINGERSTICK GLU 136 mg/dL High 74-106 [facility] Comment on above: Result Comment: AAMIR GEMENT OF PATIENT CARE PER NURSING PROTOCOL Performed By: #### L 501.080 ####[facility] [address] [place], [address] CBC W/Diff, Automatedon 11-0 8-4 Absolute Lymph 1.36 X10 3/uL Normal 0.83-4.51 [facility] Comment on above: Performed By: #### L 500.4050, L100.0100 ####[facility] [address] [place], [address] Absolute Neut 5.1 X10 3/uL Normal 2.0-7.7 [facility] Comment on above: Performed By: #### L 500.4050, L100.0100 ####[facility] [address] [place], [address] Basophils/100 WBC (Bld) 0.4 % Normal 0-1 [facility] Comment on above: Performed By: #### L 500.4050, L100.0100 ####[facility] [address] [place], [address] Eosinophils/100 WBC (Bld) 1.7 % Normal 0-5 [facility] Comment on above: Performed By: #### L 500.4050, L100.0100 ####[facility] [address] [place], [address] Erythrocyte distribution width (RBC) [Ratio] 14.3 % Normal 11.6-14.6 [facility] Comment on above: Performed By: #### L 500.4050, L100.0100 ####[facility] [address] [place], [address] Hematocrit (Bld) [Volume fraction] 24.2 % Low 40-54 [facility] Comment on above: Performed By: #### L 500.4050, L100.0100 ####[facility] [address] [place], [address] Hemoglobin (Bld) [Mass/Vol] 8.1 g/dL Low 13.0-16.5 [facility] Comment on above: Performed By: #### L 500.4050, L100.0100 ####[facility] [address] [place], [address] IG% 0.700 Normal 0.0-0.9 [facility] Comment on above: Result Comment: IG% - Immature Granulocytes (promyelocytes, myelocytes andmetamyelocytes) > 1% indicates that a LEFT SHIFT is Present. Performed By: #### L 500.4050, L100.0100 ####[facility] [address] [place], [address] Lymphocytes/100 WBC (Bld) 19.0 % Normal 19-41 [facility] Comment on above: Performed By: #### L 500.4050, L100.0100 ####[facility] [address] [place], [address] MCH (RBC) [Entitic mass] 29.6 pg Normal 27.0-32.0 [facility] Comment on above: Performed By: #### L 500.4050, L100.0100 ####[facility] [address] [place], [address] MCHC (RBC) [Mass/Vol] 33.5 g/dL Normal 32-36 [facility] Comment on above: Performed By: #### L 500.4050, L100.0100 ####[facility] [address] [place], [address] MCV (RBC) [Entitic vol] 88.3 fL Normal 80-94 [facility] Comment on above: Performed By: #### L 500.4050, L100.0100 ####[facility] [address] [place], [address] Monocytes/100 WBC (Bld) 6.8 % Normal 0-10 [facility] Comment on above: Performed By: #### L 500.4050, L100.0100 ####[facility] [address] [place], [address] Neutrophils/100 WBC (Bld) 71.4 % High 47-70 [facility] Comment on above: Performed By: #### L 500.4050, L100.0100 ####[facility] [address] [place], [address] Nucleated RBC (Bld) [#/Vol] 0 10*3/uL Normal 0-5 [facility] Comment on above: Performed By: #### L 500.4050, L100.0100 ####[facility] [address] [place], [address] Platelet mean volume (Bld) [Entitic vol] 10.2 fL Normal 6.2-12.0 [facility] Comment on above: Performed By: #### L 500.4050, L100.0100 ####[facility] [address] [place], [address] Platelets (Bld) [#/Vol] 170 10*3/uL Normal 150-450 [facility] Comment on above: Performed By: #### L 500.4050, L100.0100 ####[facility] [address] [place], [address] RBC (Bld) [#/Vol] 2.74 10*6/uL Low 4.6-6.[address] [facility] Comment on above: Performed By: #### L 500.4050, L100.0100 ####[facility] [address] [place], [address] RDW SD 46.1 fl High 35.1-43.9 [facility] Comment on above: Performed By: #### L 500.4050, L100.0100 ####[facility] [id number] [place], [address] WBC (Bld) [#/Vol] 7.2 10*3/uL Normal 4.4-11.0 [facility] Comment on above: Performed By: #### L 500.4050, L100.0100 ####[facility] [id number] [place], [address] CXR for Line Placementon CXR for Line Placement Normal [facility] Comprehensive Metabolic Prof ilon 07-05-2024 Albumin [Mass/Vol] 2.5 g/dL Low 3.2-5.0 [facility] Comment on above: Performed By: #### L 500.4050, L100.0100 ####[facility] [address] [place], [address] Albumin/Globulin [Mass ratio] 0.8 {ratio} Low 0.9-2.4 [facility] Comment on above: Performed By: #### L 500.4050, L100.0100 ####[facility] [address] [place], [address] ALK P 48 U/L Normal 45-117 [facility] Comment on above: Performed By: #### L 500.4050, L100.0100 ####[facility] [address] [place], [address] ALT [Catalytic activity/Vol] 11 U/L Low 16-61 [facility] Comment on above: Performed By: #### L 500.4050, L100.0100 ####[facility] [address] [place], [address] AST [Catalytic activity/Vol] 5 U/L Low 15-37 [facility] Comment on above: Performed By: #### L 500.4050, L100.0100 ####[facility] [address] [place], [address] Bilirubin [Mass/Vol] 0.30 mg/dL Normal 0.20-1.00 [facility] Comment on above: Result Comment: For patients on eltrombopag therapy, use of Dimension [place] TBIL is not recommended. Performed By: #### L 500.4050, L100.0100 ####[facility] [address] [place], [address] BUN/CRE 9.9 RATIO Low 10-20 [facility] Comment on above: Performed By: #### L 500.4050, L100.0100 ####[facility] [address] [place], [address] CA,Total 8.0 mg/dL Low 8.5-10.1 [facility] Comment on above: Performed By: #### L 500.4050, L100.0100 ####[facility] [address] [place], [address] Chloride [Moles/Vol] 109 mmol/L High 98-107 [facility] Comment on above: Performed By: #### L 500.4050, L100.0100 ####[facility] [address] [place], [address] CO2 [Moles/Vol] 15.0 mmol/L Low 21.0-32.0 [facility] Comment on above: Performed By: #### L 500.4050, L100.0100 ####[facility] [address] [place], [address] Creatinine [Mass/Vol] 9.10 mg/dL Invalid Interpretation Code 0.70-1.30 [facility] Comment on above: Result Comment: Crit ical Result(s) Called at: 08:57:24 07/05/2024 by: Kristen to Jessica Garcia. Results read back by same.The validity of the calculated GFR GFRAA in patients over70 years has not been determined. Clinical correlation isessential. Performed By: #### L 500.4050, L100.0100 ####[facility] [address] [place], [address] ECRCL 10.12 ml/min Normal [facility] Comment on above: Performed By: #### L 500.4050, L100.0100 ####[facility] [address] [place], [address] EST GFR - AA 8 mL/min Low >60 [facility] Comment on above: Result Comment: Afri can Indian GFR Calc Performed By: #### L 500.4050, L100.0100 ####[facility] [address] [place], [address] GAP 10 Normal 5-15 [facility] Comment on above: Performed By: #### L 500.4050, L100.0100 ####[facility] [address] [place], [address] GFR/1.73 sq M.predicted among non-blacks MDRD (S/P/Bld) [Vol rate/Area] 6 mL/min/{1.73_m2} Low >60 [facility] Comment on above: Result Comment: Non- GFR Calc Performed By: #### L 500.4050, L100.0100 ####[facility] [address] [place], [address] Globulin (S) [Mass/Vol] 3.3 g/dL Normal 2.2-4.2 [facility] Comment on above: Performed By: #### L 500.4050, L100.0100 ####[facility] [address] [place], [address] Glucose [Mass/Vol] 134 mg/dL High 74-106 [facility] Comment on above: Result Comment: Fast ing Glucose result greater than or equal to 126 mg/dLsuggests DIABETES MELLITUS per A.D.A. criteria. Performed By: #### L 500.4050, L100.0100 ####[facility] [address] [place], [address] Potassium [Moles/Vol] 5.4 mmol/L High 3.5-5.1 [facility] Comment on above: Performed By: #### L 500.4050, L100.0100 ####[facility] [address] [place], [address] Sodium [Moles/Vol] 133 mmol/L Low 136-145 [facility] Comment on above: Performed By: #### L 500.4050, L100.0100 ####[facility] [address] [place], [address] T PROT 5.8 g/dL Low 6.4-8.2 [facility] Comment on above: Performed By: #### L 500.4050, L100.0100 ####[facility] [address] [place], [address] Urea nitrogen [Mass/Vol] 90 mg/dL High 7-18 [facility] Comment on above: Performed By: #### L 500.4050, L100.0100 ####[facility] [address] [place], [address] Hepatitis B Surface Antigeno n 07-05-2024 HEP B Surf Ag Non-Reactive Normal Nonreactive [facility] Comment on above: Order Comment: Reaso n for Exam: outpatient dialysis Performed By: #### L 3890.6100 ####[facility] [address] [place], [address] MR/POSTOP.ANEon 07-05-2024 MR/POSTOP.ANE Normal [facility] Operative Reporton Operative Report Normal [facility] 12 Lead EKGon 07-04-2024 12 Lead EKG Normal [facility] Basic Metabolic Profile (BMP )on 07-04-2024 BUN/CRE 9.8 RATIO Low 10-20 [facility] Comment on above: Performed By: #### L 500.2500, L300.3900, L501.5200, L501.2300 ####[facility] [address] [place], [address] CA,Total 8.0 mg/dL Low 8.5-10.1 [facility] Comment on above: Performed By: #### L 500.2500, L300.3900, L501.5200, L501.2300 ####[facility] [address] [place], [address] Chloride [Moles/Vol] 106 mmol/L Normal 98-107 [facility] Comment on above: Performed By: #### L 500.2500, L300.3900, L501.5200, L501.2300 ####[facility] [address] [place], [address] CO2 [Moles/Vol] 14.0 mmol/L Low 21.0-32.0 [facility] Comment on above: Performed By: #### L 500.2500, L300.3900, L501.5200, L501.2300 ####[facility] [address] [place], [address] Creatinine [Mass/Vol] 8.77 mg/dL Invalid Interpretation Code 0.70-1.30 [facility] Comment on above: Result Comment: Crit ical Result(s) Called at: 07:14:43 07/04/2024 by:Juana Alcazar to Alicia Shields. Results read back bysame.The validity of the calculated GFR GFRAA in patients over70 years has not been determined. Clinical correlation isessential. Performed By: #### L 500.2500, L300.3900, L501.5200, L501.2300 ####[facility] [address] [place], [address] ECRCL 10.49 ml/min Normal [facility] Comment on above: Performed By: #### L 500.2500, L300.3900, L501.5200, L501.2300 ####[facility] [address] [place], [address] EST GFR - AA 8 mL/min Low >60 [facility] Comment on above: Result Comment: Afri can Indian GFR Calc Performed By: #### L 500.2500, L300.3900, L501.5200, L501.2300 ####[facility] [address] [place], [address] GAP 11 Normal 5-15 [facility] Comment on above: Performed By: #### L 500.2500, L300.3900, L501.5200, L501.2300 ####[facility] [address] [place], [address] GFR/1.73 sq M.predicted among non-blacks MDRD (S/P/Bld) [Vol rate/Area] 7 mL/min/{1.73_m2} Low >60 [facility] Comment on above: Result Comment: Non- GFR Calc Performed By: #### L 500.2500, L300.3900, L501.5200, L501.2300 ####[facility] [address] [place], [address] Glucose [Mass/Vol] 138 mg/dL High 74-106 [facility] Comment on above: Result Comment: Fast ing Glucose result greater than or equal to 126 mg/dLsuggests DIABETES MELLITUS per A.D.A. criteria. Performed By: #### L 500.2500, L300.3900, L501.5200, L501.2300 ####[facility] [address] [place], [address] Potassium [Moles/Vol] 5.0 mmol/L Normal 3.5-5.1 [facility] Comment on above: Performed By: #### L 500.2500, L300.3900, L501.5200, L501.2300 ####[facility] [address] [place], [address] Sodium [Moles/Vol] 132 mmol/L Low 136-145 [facility] Comment on above: Performed By: #### L 500.2500, L300.3900, L501.5200, L501.2300 ####[facility] [address] [place], [address] Urea nitrogen [Mass/Vol] 86 mg/dL High 7-18 [facility] Comment on above: Performed By: #### L 500.2500, L300.3900, L501.5200, L501.2300 ####[facility] [address] [place], [address] Bedside Glucoseon 07-04-2024 FINGERSTICK GLU 193 mg/dL High 74-106 [facility] Comment on above: Result Comment: AAMIR GEMENT OF PATIENT CARE PER NURSING PROTOCOL Performed By: #### L 501.080 ####[facility] [address] [place], [address] FINGERSTICK GLU 214 mg/dL High 74-106 [facility] Comment on above: Result Comment: AAMIR GEMENT OF PATIENT CARE PER NURSING PROTOCOL Performed By: #### L 501.080 ####[facility] [address] [place], [address] FINGERSTICK GLU 126 mg/dL High 74-106 [facility] Comment on above: Result Comment: AAMIR GEMENT OF PATIENT CARE PER NURSING PROTOCOL Performed By: #### L 501.080 ####[facility] [address] [place], [address] FINGERSTICK GLU 124 mg/dL High 74-106 [facility] Comment on above: Result Comment: AAMIR GEMENT OF PATIENT CARE PER NURSING PROTOCOL Performed By: #### L 501.080 ####[facility] [address] [place], [address] CBC-Complete Blood Cnt No Di ffon 07-04-2024 Erythrocyte distribution width (RBC) [Ratio] 14.3 % Normal 11.6-14.6 [facility] Comment on above: Performed By: #### L 100.0500 ####[facility] [address] [place], [address] Hematocrit (Bld) [Volume fraction] 26.8 % Low 40-54 [facility] Comment on above: Performed By: #### L 100.0500 ####[facility] [address] [place], [address] Hemoglobin (Bld) [Mass/Vol] 8.9 g/dL Low 13.0-16.5 [facility] Comment on above: Performed By: #### L 100.0500 ####[facility] [address] [place], [address] MCH (RBC) [Entitic mass] 29.9 pg Normal 27.0-32.0 [facility] Comment on above: Performed By: #### L 100.0500 ####[facility] [address] [place], [address] MCHC (RBC) [Mass/Vol] 33.2 g/dL Normal 32-36 [facility] Comment on above: Performed By: #### L 100.0500 ####[facility] [address] [place], [address] MCV (RBC) [Entitic vol] 89.9 fL Normal 80-94 [facility] Comment on above: Performed By: #### L 100.0500 ####[facility] [address] [place], [address] Platelet mean volume (Bld) [Entitic vol] 10.3 fL Normal 6.2-12.0 [facility] Comment on above: Performed By: #### L 100.0500 ####[facility] [address] [place], [address] Platelets (Bld) [#/Vol] 219 10*3/uL Normal 150-450 [facility] Comment on above: Performed By: #### L 100.0500 ####[facility] [address] [place], [address] RBC (Bld) [#/Vol] 2.98 10*6/uL Low 4.6-6.[address] [facility] Comment on above: Performed By: #### L 100.0500 ####[facility] [address] [place], [address] RDW SD 46.7 fl High 35.1-43.9 [facility] Comment on above: Performed By: #### L 100.0500 ####[facility] [address] [place], [address] WBC (Bld) [#/Vol] 9.6 10*3/uL Normal 4.4-11.0 [facility] Comment on above: Performed By: #### L 100.0500 ####[facility] [address] [place], [address] Consultation - Nephrologyon 07-04-2024 Consultation - Nephrology Normal [facility] Consultation - Surgicalon Consultation - Surgical Normal [facility] Magnesiumon 07-04-2024 Magnesium [Mass/Vol] 2.1 mg/dL Normal 1.6-2.6 [facility] Comment on above: Performed By: #### L 500.2500, L300.3900, L501.5200, L501.2300 ####[facility] [address] [place], [address] Phosphoruson 07-04-2024 Phosphate [Mass/Vol] 8.1 mg/dL High 2.5-4.9 [facility] Comment on above: Performed By: #### L 500.2500, L300.3900, L501.5200, L501.2300 ####[facility] [address] [place], [address] Prothrombin Time w/INRon INR Coag (PPP) [Relative time] 1.2 {INR} Normal [facility] Comment on above: Performed By: #### L 500.2500, L300.3900, L501.5200, L501.2300 ####[facility] [address] [place], [address] PT Coag (PPP) [Time] 15.4 s High 11.7-14.9 [facility] Comment on above: Performed By: #### L 500.2500, L300.3900, L501.5200, L501.2300 ####[facility] [address] [place], [address] Basic Metabolic Profile (BMP )on 07-03-2024 BUN Normal 7-18 [facility] Comment on above: Result Comment: CMP ALREADY DONE THIS MORNING- OVERLAPPING Performed By: #### L 500.2500 ####[facility] [address] [place], [address] BUN/CRE Normal 10-20 [facility] Comment on above: Result Comment: CMP ALREADY DONE THIS MORNING- OVERLAPPING Performed By: #### L 500.2500 ####[facility] [address] [place], [address] CA,Total Normal 8.5-10.1 [facility] Comment on above: Result Comment: CMP ALREADY DONE THIS MORNING- OVERLAPPING Performed By: #### L 500.2500 ####[facility] [address] [place], [address] CL Normal 98-107 [facility] Comment on above: Result Comment: CMP ALREADY DONE THIS MORNING- OVERLAPPING Performed By: #### L 500.2500 ####[facility] [address] [place], [address] CO2 Normal 21.0-32.0 [facility] Comment on above: Result Comment: CMP ALREADY DONE THIS MORNING- OVERLAPPING Performed By: #### L 500.2500 ####[facility] [address] [place], [address] CREAT,SERUM Normal 0.70-1.30 [facility] Comment on above: Result Comment: CMP ALREADY DONE THIS MORNING- OVERLAPPING Performed By: #### L 500.2500 ####[facility] [address] [place], [address] EST GFR Normal >60 [facility] Comment on above: Result Comment: CMP ALREADY DONE THIS MORNING- OVERLAPPING Performed By: #### L 500.2500 ####[facility] [address] [place], [address] EST GFR - AA Normal >60 [facility] Comment on above: Result Comment: CMP ALREADY DONE THIS MORNING- OVERLAPPING Performed By: #### L 500.2500 ####[facility] [address] [place], [address] GAP Normal 5-15 [facility] Comment on above: Result Comment: CMP ALREADY DONE THIS MORNING- OVERLAPPING Performed By: #### L 500.2500 ####[facility] [address] [place], [address] GLU Normal 74-106 [facility] Comment on above: Result Comment: CMP ALREADY DONE THIS MORNING- OVERLAPPING Performed By: #### L 500.2500 ####[facility] [address] [place], [address] Potassium Normal 3.5-5.1 [facility] Comment on above: Result Comment: CMP ALREADY DONE THIS MORNING- OVERLAPPING Performed By: #### L 500.2500 ####[facility] [address] [place], [address] Basic Metabolic Profile (BMP) Normal 136-145 [facility] Comment on above: Result Comment: CMP ALREADY DONE THIS MORNING- OVERLAPPING Performed By: #### L 500.2500 ####[facility] [address] [place], [address] Bedside Glucoseon 07-03-2024 FINGERSTICK GLU 137 mg/dL High 74-106 [facility] Comment on above: Result Comment: AAMIR GEMENT OF PATIENT CARE PER NURSING PROTOCOL Performed By: #### L 501.080 ####[facility] [address] [place], [address] FINGERSTICK GLU 133 mg/dL High 74-106 [facility] Comment on above: Result Comment: AAMIR GEMENT OF PATIENT CARE PER NURSING PROTOCOL Performed By: #### L 501.080 ####[facility] [address] [place], [address] FINGERSTICK GLU 115 mg/dL High 74-106 [facility] Comment on above: Result Comment: AAMIR GEMENT OF PATIENT CARE PER NURSING PROTOCOL Performed By: #### L 501.080 ####[facility] [address] [place], [address] FINGERSTICK GLU 110 mg/dL High 74-106 [facility] Comment on above: Result Comment: AAMRI GEMENT OF PATIENT CARE PER NURSING PROTOCOL Performed By: #### L 501.080 ####[facility] [address] [place], [address] CBC W/Diff, Automatedon 11-0 Absolute Lymph 1.48 X10 3/uL Normal 0.83-4.51 [facility] Comment on above: Performed By: #### L 500.4050, L501.2300, L100.0100, L300.3900, L501.9520, L501.5200, L501.9985 ####[facility] [address] [place], [address] Absolute Neut 4.8 X10 3/uL Normal 2.0-7.7 [facility] Comment on above: Performed By: #### L 500.4050, L501.2300, L100.0100, L300.3900, L501.9520, L501.5200, L501.9985 ####[facility] [address] [place], [address] Basophils/100 WBC (Bld) 0.4 % Normal 0-1 [facility] Comment on above: Performed By: #### L 500.4050, L501.2300, L100.0100, L300.3900, L501.9520, L501.5200, L501.9985 ####[facility] [address] [place], [address] Eosinophils/100 WBC (Bld) 1.3 % Normal 0-5 [facility] Comment on above: Performed By: #### L 500.4050, L501.2300, L100.0100, L300.3900, L501.9520, L501.5200, L501.9985 ####[facility] [address] [place], [address] Erythrocyte distribution width (RBC) [Ratio] 14.1 % Normal 11.6-14.6 [facility] Comment on above: Performed By: #### L 500.4050, L501.2300, L100.0100, L300.3900, L501.9520, L501.5200, L501.9985 ####[facility] [address] [place], [address] Hematocrit (Bld) [Volume fraction] 25.2 % Low 40-54 [facility] Comment on above: Performed By: #### L 500.4050, L501.2300, L100.0100, L300.3900, L501.9520, L501.5200, L501.9985 ####[facility] [address] [place], [address] Hemoglobin (Bld) [Mass/Vol] 8.4 g/dL Low 13.0-16.5 [facility] Comment on above: Performed By: #### L 500.4050, L501.2300, L100.0100, L300.3900, L501.9520, L501.5200, L501.9985 ####[facility] [address] [place], [address] IG% 1.000 High 0.0-0.9 [facility] Comment on above: Result Comment: IG% - Immature Granulocytes (promyelocytes, myelocytes andmetamyelocytes) > 1% indicates that a LEFT SHIFT is Present. Performed By: #### L 500.4050, L501.2300, L100.0100, L300.3900, L501.9520, L501.5200, L501.9985 ####[facility] [address] [place], [address] Lymphocytes/100 WBC (Bld) 21.9 % Normal 19-41 [facility] Comment on above: Performed By: #### L 500.4050, L501.2300, L100.0100, L300.3900, L501.9520, L501.5200, L501.9985 ####[facility] [address] [place], [address] MCH (RBC) [Entitic mass] 30.0 pg Normal 27.0-32.0 [facility] Comment on above: Performed By: #### L 500.4050, L501.2300, L100.0100, L300.3900, L501.9520, L501.5200, L501.9985 ####[facility] [address] [place], [address] MCHC (RBC) [Mass/Vol] 33.3 g/dL Normal 32-36 [facility] Comment on above: Performed By: #### L 500.4050, L501.2300, L100.0100, L300.3900, L501.9520, L501.5200, L501.9985 ####[facility] [address] [place], [address] MCV (RBC) [Entitic vol] 90.0 fL Normal 80-94 [facility] Comment on above: Performed By: #### L 500.4050, L501.2300, L100.0100, L300.3900, L501.9520, L501.5200, L501.9985 ####[facility] [address] [place], [address] Monocytes/100 WBC (Bld) 5.2 % Normal 0-10 [facility] Comment on above: Performed By: #### L 500.4050, L501.2300, L100.0100, L300.3900, L501.9520, L501.5200, L501.9985 ####[facility] [address] [place], [address] Neutrophils/100 WBC (Bld) 70.2 % High 47-70 [facility] Comment on above: Performed By: #### L 500.4050, L501.2300, L100.0100, L300.3900, L501.9520, L501.5200, L501.9985 ####[facility] [address] [place], [address] Nucleated RBC (Bld) [#/Vol] 0 10*3/uL Normal 0-5 [facility] Comment on above: Performed By: #### L 500.4050, L501.2300, L100.0100, L300.3900, L501.9520, L501.5200, L501.9985 ####[facility] [address] [place], [address] Platelet mean volume (Bld) [Entitic vol] 10.5 fL Normal 6.2-12.0 [facility] Comment on above: Performed By: #### L 500.4050, L501.2300, L100.0100, L300.3900, L501.9520, L501.5200, L501.9985 ####[facility] [address] [place], [address] Platelets (Bld) [#/Vol] 180 10*3/uL Normal 150-450 [facility] Comment on above: Performed By: #### L 500.4050, L501.2300, L100.0100, L300.3900, L501.9520, L501.5200, L501.9985 ####[facility] [address] [place], [address] RBC (Bld) [#/Vol] 2.80 10*6/uL Low 4.6-6.[address] [facility] Comment on above: Performed By: #### L 500.4050, L501.2300, L100.0100, L300.3900, L501.9520, L501.5200, L501.9985 ####[facility] [address] [place], [address] RDW SD 46.3 fl High 35.1-43.9 [facility] Comment on above: Performed By: #### L 500.4050, L501.2300, L100.0100, L300.3900, L501.9520, L501.5200, L501.9985 ####[facility] [address] [place], [address] WBC (Bld) [#/Vol] 6.8 10*3/uL Normal 4.4-11.0 [facility] Comment on above: Performed By: #### L 500.4050, L501.2300, L100.0100, L300.3900, L501.9520, L501.5200, L501.9985 ####[facility] [address] [place], [address] Carbamazepine (Tegretol)on 09-02-2023 CARBAMAZEPINE 7.5 ug/mL Normal 4.0-12.0 [facility] Comment on above: Performed By: #### L 501.7900 ####[facility] [address] [place], [address] Colonoscopy Reporton Colonoscopy Report Normal [facility] Comprehensive Metabolic Prof ilon 07-03-2024 Albumin [Mass/Vol] 2.7 g/dL Low 3.2-5.0 [facility] Comment on above: Performed By: #### L 500.4050, L501.2300, L100.0100, L300.3900, L501.9520, L501.5200, L501.9985 ####[facility] [address] [place], [address] Albumin/Globulin [Mass ratio] 0.7 {ratio} Low 0.9-2.4 [facility] Comment on above: Performed By: #### L 500.4050, L501.2300, L100.0100, L300.3900, L501.9520, L501.5200, L501.9985 ####[facility] [address] [place], [address] ALK P 43 U/L Low 45-117 [facility] Comment on above: Performed By: #### L 500.4050, L501.2300, L100.0100, L300.3900, L501.9520, L501.5200, L501.9985 ####[facility] [address] [place], [address] ALT [Catalytic activity/Vol] 15 U/L Low 16-61 [facility] Comment on above: Performed By: #### L 500.4050, L501.2300, L100.0100, L300.3900, L501.9520, L501.5200, L501.9985 ####[facility] [address] [place], [address] AST [Catalytic activity/Vol] 8 U/L Low 15-37 [facility] Comment on above: Performed By: #### L 500.4050, L501.2300, L100.0100, L300.3900, L501.9520, L501.5200, L501.9985 ####[facility] [address] [place], [address] Bilirubin [Mass/Vol] 0.30 mg/dL Normal 0.20-1.00 [facility] Comment on above: Result Comment: For patients on eltrombopag therapy, use of Dimension [place] TBIL is not recommended. Performed By: #### L 500.4050, L501.2300, L100.0100, L300.3900, L501.9520, L501.5200, L501.9985 ####[facility] [address] [place], [address] BUN/CRE 10.3 RATIO Normal 10-20 [facility] Comment on above: Performed By: #### L 500.4050, L501.2300, L100.0100, L300.3900, L501.9520, L501.5200, L501.9985 ####[facility] [address] [place], [address] CA,Total 7.6 mg/dL Low 8.5-10.1 [facility] Comment on above: Performed By: #### L 500.4050, L501.2300, L100.0100, L300.3900, L501.9520, L501.5200, L501.9985 ####[facility] [address] [place], [address] Chloride [Moles/Vol] 108 mmol/L High 98-107 [facility] Comment on above: Performed By: #### L 500.4050, L501.2300, L100.0100, L300.3900, L501.9520, L501.5200, L501.9985 ####[facility] [address] [place], [address] CO2 [Moles/Vol] 16.0 mmol/L Low 21.0-32.0 [facility] Comment on above: Performed By: #### L 500.4050, L501.2300, L100.0100, L300.3900, L501.9520, L501.5200, L501.9985 ####[facility] [address] [place], [address] Creatinine [Mass/Vol] 8.67 mg/dL Invalid Interpretation Code 0.70-1.30 [facility] Comment on above: Result Comment: Crit ical Result(s) Called at: 06:43:05 07/03/2024 by:Juana Alcazar to cipriano celis. Results read back bysame.The validity of the calculated GFR GFRAA in patients over70 years has not been determined. Clinical correlation isessential. Performed By: #### L 500.4050, L501.2300, L100.0100, L300.3900, L501.9520, L501.5200, L501.9985 ####[facility] [address] [place], [address] ECRCL 10.62 ml/min Normal [facility] Comment on above: Performed By: #### L 500.4050, L501.2300, L100.0100, L300.3900, L501.9520, L501.5200, L501.9985 ####[facility] [address] [place], [address] EST GFR - AA 8 mL/min Low >60 [facility] Comment on above: Result Comment: Afri can Indian GFR Calc Performed By: #### L 500.4050, L501.2300, L100.0100, L300.3900, L501.9520, L501.5200, L501.9985 ####[facility] [address] [place], [address] GAP 11 Normal 5-15 [facility] Comment on above: Performed By: #### L 500.4050, L501.2300, L100.0100, L300.3900, L501.9520, L501.5200, L501.9985 ####[facility] [address] [place], [place], [id number] GFR/1.73 sq M.predicted among non-blacks MDRD (S/P/Bld) [Vol rate/Area] 7 mL/min/{1.73_m2} Low >60 [facility] Comment on above: Result Comment: Non- GFR Calc Performed By: #### L 500.4050, L501.2300, L100.0100, L300.3900, L501.9520, L501.5200, L501.9985 ####[facility] [address] [place], [place], [address] Globulin (S) [Mass/Vol] 3.7 g/dL Normal 2.2-4.2 [facility] Comment on above: Performed By: #### L 500.4050, L501.2300, L100.0100, L300.3900, L501.9520, L501.5200, L501.9985 ####[facility] [address] [place], [address] Glucose [Mass/Vol] 117 mg/dL High 74-106 [facility] Comment on above: Result Comment: Fast ing Glucose result from 100 to 125 mg/dLsuggests IMPAIRED HOMEOSTASIS per A.D.A. criteria. Performed By: #### L 500.4050, L501.2300, L100.0100, L300.3900, L501.9520, L501.5200, L501.9985 ####[facility] [address] [place], [address] Potassium [Moles/Vol] 5.5 mmol/L High 3.5-5.1 [facility] Comment on above: Performed By: #### L 500.4050, L501.2300, L100.0100, L300.3900, L501.9520, L501.5200, L501.9985 ####[facility] [address] [place], [address] Sodium [Moles/Vol] 135 mmol/L Low 136-145 [facility] Comment on above: Performed By: #### L 500.4050, L501.2300, L100.0100, L300.3900, L501.9520, L501.5200, L501.9985 ####[facility] [address] [place], [address] T PROT 6.4 g/dL Normal 6.4-8.2 [facility] Comment on above: Performed By: #### L 500.4050, L501.2300, L100.0100, L300.3900, L501.9520, L501.5200, L501.9985 ####[facility] [address] [place], [address] Urea nitrogen [Mass/Vol] 89 mg/dL High 7-18 [facility] Comment on above: Performed By: #### L 500.4050, L501.2300, L100.0100, L300.3900, L501.9520, L501.5200, L501.9985 ####[facility] [address] [place], [address] EGD Reporton 07-03-2024 EGD Report Normal [facility] Hemoglobin A1con 07-03-2024 HbA1c (Bld) [Mass fraction] 6.4 % High 3.8-5.6 [facility] Comment on above: Result Comment: Norm al < 5.7 % Prediabetic 5.7 - 6.4 % Diabetic >or= 6.5 % Please note range changes. Performed By: #### L 500.4050, L501.2300, L100.0100, L300.3900, L501.9520, L501.5200, L501.9985 ####[facility] [address] [place], [address] MR/POSTOP.ANEon 07-03-2024 MR/POSTOP.ANE Normal [facility] MR/BOWJXGDL0bb 07-03-2024 MR/POSTOPAN2 Normal [facility] Magnesiumon 07-03-2024 Magnesium [Mass/Vol] 1.3 mg/dL Low 1.6-2.6 [facility] Comment on above: Performed By: #### L 500.4050, L501.2300, L100.0100, L300.3900, L501.9520, L501.5200, L501.9985 ####[facility] [address] [place], [address] Partial Thromboplast Timeon 07-03-2024 aPTT Coag (Bld) [Time] 35.5 s Normal 24.1-36.2 [facility] Comment on above: Performed By: #### L 300.4310 ####[facility] [address] [place], [address] Phosphoruson 07-03-2024 Phosphate [Mass/Vol] 8.0 mg/dL High 2.5-4.9 [facility] Comment on above: Performed By: #### L 500.4050, L501.2300, L100.0100, L300.3900, L501.9520, L501.5200, L501.9985 ####[facility] [address] [place], [address] Prothrombin Time w/INRon INR Coag (PPP) [Relative time] 1.2 {INR} Normal [facility] Comment on above: Performed By: #### L 500.4050, L501.2300, L100.0100, L300.3900, L501.9520, L501.5200, L501.9985 ####[facility] [address] [place], [address] PT Coag (PPP) [Time] 15.0 s High 11.7-14.9 [facility] Comment on above: Performed By: #### L 500.4050, L501.2300, L100.0100, L300.3900, L501.9520, L501.5200, L501.9985 ####[facility] [address] [place], [address] Surgery Specimen Level George 07-03-2024 Surgery Specimen Level IV Normal [facility] Comment on above: Performed By: #### P SUIV ####[facility] [address] [place], [address] Thyroid Stim Hormone (TSH)on 07-03-2024 TSH 0.632 uIU/mL Normal 0.358-3.740 [facility] Comment on above: Performed By: #### L 500.4050, L501.2300, L100.0100, L300.3900, L501.9520, L501.5200, L501.9985 ####[facility] [address] [place], [address] Vimentin (initial)on 024 Vimentin (initial) Normal [facility] Comment on above: Performed By: #### P VIM ####[facility] [address] [place], [address] BRCon 07-02-2024 RC Normal [facility] Comment on above: Result Comment: [id number] OP RC NOT [id number] OP RC TRANSFUSED 07/02/24 2100 Performed By: #### B , [facility] ####[facility] [address] [place], [address] Basic Metabolic Profile (BMP )on 07-02-2024 BUN/CRE 10.7 RATIO Normal 10-20 [facility] Comment on above: Performed By: #### M 100.7900, L100.0500, L500.2500 ####[facility] [address] [place], [address] CA,Total 7.1 mg/dL Low 8.5-10.1 [facility] Comment on above: Performed By: #### M 100.7900, L100.0500, L500.2500 ####[facility] [address] [place], [address] Chloride [Moles/Vol] 107 mmol/L Normal 98-107 [facility] Comment on above: Performed By: #### M 100.7900, L100.0500, L500.2500 ####[facility] [address] [place], [address] CO2 [Moles/Vol] 16.0 mmol/L Low 21.0-32.0 [facility] Comment on above: Performed By: #### M 100.7900, L100.0500, L500.2500 ####[facility] [address] [place], [address] Creatinine [Mass/Vol] 8.49 mg/dL Invalid Interpretation Code 0.70-1.30 [facility] Comment on above: Result Comment: Crit ical Result(s) Called at: 18:38:50 07/02/2024 by:Kate Buck to Amber. Results read back bysame.The validity of the calculated GFR GFRAA in patients over70 years has not been determined. Clinical correlation isessential. Performed By: #### M 100.7900, L100.0500, L500.2500 ####[facility] [address] [place], [address] ECRCL 10.92 ml/min Normal [facility] Comment on above: Performed By: #### M 100.7900, L100.0500, L500.2500 ####[facility] [address] [place], [address] EST GFR - AA 8 mL/min Low >60 [facility] Comment on above: Result Comment: Afri can Indian GFR Calc Performed By: #### M 100.7900, L100.0500, L500.2500 ####[facility] [address] [place], [address] GAP 10 Normal 5-15 [facility] Comment on above: Performed By: #### M 100.7900, L100.0500, L500.2500 ####[facility] [address] [place], [address] GFR/1.73 sq M.predicted among non-blacks MDRD (S/P/Bld) [Vol rate/Area] 7 mL/min/{1.73_m2} Low >60 [facility] Comment on above: Result Comment: Non- GFR Calc Performed By: #### M 100.7900, L100.0500, L500.2500 ####[facility] [address] [place], [address] Glucose [Mass/Vol] 220 mg/dL High 74-106 [facility] Comment on above: Result Comment: Gluc ose result greater than or equal to 200 mg/dLsuggests DIABETES MELLITUS per A.D.A. criteria. Performed By: #### M 100.7900, L100.0500, L500.2500 ####[facility] [address] [place], [address] Potassium [Moles/Vol] 5.4 mmol/L High 3.5-5.1 [facility] Comment on above: Performed By: #### M 100.7900, L100.0500, L500.2500 ####[facility] [address] [place], [address] Sodium [Moles/Vol] 133 mmol/L Low 136-145 [facility] Comment on above: Performed By: #### M 100.7900, L100.0500, L500.2500 ####[facility] [address] [place], [address] Urea nitrogen [Mass/Vol] 91 mg/dL High 7-18 [facility] Comment on above: Performed By: #### M 100.7900, L100.0500, L500.2500 ####[facility] [address] [place], [address] CBC-Complete Blood Cnt No Di ffon 07-02-2024 Erythrocyte distribution width (RBC) [Ratio] 13.5 % Normal 11.6-14.6 [facility] Comment on above: Performed By: #### M 100.7900, L100.0500, L500.2500 ####[facility] [address] [place], [address] Hematocrit (Bld) [Volume fraction] 20.9 % Low 40-54 [facility] Comment on above: Performed By: #### M 100.7900, L100.0500, L500.2500 ####[facility] [address] [place], [address] Hemoglobin (Bld) [Mass/Vol] 6.9 g/dL Low 13.0-16.5 [facility] Comment on above: Performed By: #### M 100.7900, L100.0500, L500.2500 ####[facility] [address] [place], [address] MCH (RBC) [Entitic mass] 30.3 pg Normal 27.0-32.0 [facility] Comment on above: Performed By: #### M 100.7900, L100.0500, L500.2500 ####[facility] [address] [place], [address] MCHC (RBC) [Mass/Vol] 33.0 g/dL Normal 32-36 [facility] Comment on above: Performed By: #### M 100.7900, L100.0500, L500.2500 ####[facility] [address] [place], [address] MCV (RBC) [Entitic vol] 91.7 fL Normal 80-94 [facility] Comment on above: Performed By: #### M 100.7900, L100.0500, L500.2500 ####[facility] [address] [place], [address] Platelet mean volume (Bld) [Entitic vol] 10.5 fL Normal 6.2-12.0 [facility] Comment on above: Performed By: #### M 100.7900, L100.0500, L500.2500 ####[facility] [address] [place], [address] Platelets (Bld) [#/Vol] 158 10*3/uL Normal 150-450 [facility] Comment on above: Performed By: #### M 100.7900, L100.0500, L500.2500 ####[facility] [address] [place], [address] RBC (Bld) [#/Vol] 2.28 10*6/uL Low 4.6-6.[address] [facility] Comment on above: Performed By: #### M 100.7900, L100.0500, L500.2500 ####[facility] [address] [place], [address] RDW SD 45.3 fl High 35.1-43.9 [facility] Comment on above: Performed By: #### M 100.7900, L100.0500, L500.2500 ####[facility] [address] [place], [address] WBC (Bld) [#/Vol] 5.0 10*3/uL Normal 4.4-11.0 [facility] Comment on above: Performed By: #### M 100.7900, L100.0500, L500.2500 ####[facility] [address] [place], [address] Emergency Department Summary on 07-02-2024 Emergency Department Summary Normal [facility] Ferritinon 07-02-2024 Ferritin [Mass/Vol] 289 ng/mL Normal 26-[address] [facility] Comment on above: Order Comment: Has P atient had X-rays with Contrast this admission? NN Performed By: #### L 503.6550, L503.0105, L503.6030, L506.0250 ####[facility] [address] [place], [address] Folates, (Folic Acid)on FOLATES 4.70 ng/mL Normal 3.1-55.4 [facility] Comment on above: Order Comment: Has P atient had X-rays with Contrast this admission? NN Performed By: #### L 503.6550, L503.0105, L503.6030, L506.0250 ####[facility] [address] [place], [address] H AND P Exam - Hospitaliston 07-02-2024 H&P Exam - Hospitalist Normal [facility] Iron+Iron Binding Capacityon 07-02-2024 Iron [Mass/Vol] 192 ug/dL High 65-175 [facility] Comment on above: Order Comment: Has Bob mari had X-rays with Contrast this admission? NN Performed By: #### L 503.6550, L503.0105, L503.6030, L506.0250 ####[facility] [address] [place], [address] IRON SATURATION 102.1 High 15.0-55.0 [facility] Comment on above: Order Comment: Has Bob mari had X-rays with Contrast this admission? NN Performed By: #### L 503.6550, L503.0105, L503.6030, L506.0250 ####[facility] [address] [place], [address] TIBC 188 ug/dL Low 250-450 [facility] Comment on above: Order Comment: Has Bob mari had X-rays with Contrast this admission? NN Performed By: #### L 503.6550, L503.0105, L503.6030, L506.0250 ####[facility] [address] [place], [address] MR/CON.PCM.GIon 07-02-2024 MR/CON.PCM.GI Normal [facility] Stool Occult Blood iFOBon STOB Normal [facility] Comment on above: Performed By: #### M 100.7900, L100.0500, L500.2500 ####[facility] [address] [place], [address] Type AND Screenon 07-02-2024 ABO and Rh group Nom (Bld) Blood group O Rh(D) positive Normal [facility] Comment on above: Order Comment: CMV N EG? NNumber of units to transfuse: 2Is pt's HR > 100 bpm? NReason for Ordering Blood: AcuteAre the blood/blood products to be transfused? YIs the patient having/had surgery? NWantonio Serrano Performed By: #### B TS, BRC ####[facility] [address] [place], [address] Vitamin B12on 07-02-2024 Cobalamin (Vitamin B12) [Mass/Vol] 381 pg/mL Normal 211-911 [facility] Comment on above: Performed By: #### L 503.6550, L503.0105, L503.6030, L506.0250 ####[facility] [address] [place], [address] Calprotectin stoolOrdered By : Jimmie Ibarra on 06-26-2024 Calprotectin stool 71 ug/g 0-120 [facility] Comment on above: Concentration Interp retation Follow-Up< 5 - 50 ug/g Normal None>50 -120 ug/g Borderline Re-evaluate in 4-6 weeks >120 ug/g Abnormal Repeat as clinically indicatedPerformed at: [facility] [address] [id number] Director: Opal Arnold MD, Phone: [phone] Clostridium difficile detect ion by polymerase chain reactionOrdered By: Jimmie Ibarra on 06-26-2024 C. difficile DNA RAYMOND+probe Ql (Unsp spec) [facility] C. difficile DNA RAYMOND+probe Ql (Unsp spec) [facility] Stool gastrointestinal hemog lobin detection by immunologic methodOrdered By: Jimmie Ibarra on 06-26-2024 Lower GI hemoglobin IA Ql (Stl) Positive Abnormal [facility] Lower GI hemoglobin IA Ql (Stl) Positive Abnormal [facility] Stool lactoferrin detection by immunoassayOrdered By: Jimmie Ibarra on 06-26-2024 Lactoferrin IA Ql (Stl) [facility] Lactoferrin IA Ql (Stl) [facility] No Panel InformationOrdered By: Radha Kelley on 06-12-2024 Vitamin D 25-Hydroxy 7.3 ng/mL Low 30.0-100.0 [facility] Comment on above: Vitamin D deficiency has been defined by the [place] ofMedicine and an Endocrine Society practice guideline as alevel of serum 25-OH vitamin D less than 20 ng/mL (1,2).The Endocrine Society went on to further define vitamin Dinsufficiency as a level between 21 and 29 ng/mL (2).1. IOM ([place] of Medicine). 2010. Dietary reference intakes for calcium and D. [place]: The National Academies Press.2. Jin MF, Uli MORFIN, Kelly DUMAS, et al. Evaluation, treatment, and prevention of vitamin D deficiency: an Endocrine Society clinical practice guideline. JCEM. 2010; 96(7):1911-30.Performed at: [facility] [id number] Director: Bradley Peña PhD, Phone: [phone] CBCDIF (EXTERNAL)Ordered By: Buffy Farris on 06-06-2024 BASO ABS [facility] Basophils/100 WBC (Bld) 0.6 % 0 - 1.5 % [facility] EOS ABS [facility] Eosinophils/100 WBC (Bld) 2.0 % 1 - 3 % [facility] Hematocrit (Bld) [Volume fraction] 21.5 % Abnormal 39 - 55 % [facility] Hemoglobin (Bld) [Mass/Vol] 7.2 g/dL Abnormal 14 - 16.5 g/dL [facility] Interpretation and review of laboratory results Abnormal [facility] Lymphocytes (Bld) [#/Vol] 1.58 10*3/uL 1.2 - 4 K/uL [facility] Lymphocytes/100 WBC (Bld) 30.9 % Abnormal 20 - 30 % [facility] MCH (RBC) [Entitic mass] 30.9 pg 25.4 - 34.6 pg [facility] MCHC (RBC) [Mass/Vol] 33.5 g/dL 30 - 36 g/dL [facility] MCV (RBC) [Entitic vol] 92.3 fL 79 - 98 fL [facility] MONO ABS [facility] Monocytes/100 WBC (Bld) 5.5 % 2 - 8 % [facility] NEUT ABS 3.1 K/uL 1.9 - 8 K/uL [facility] Neutrophils/100 WBC (Bld) 60.4 % 40 - 74 % [facility] Platelet mean volume (Bld) [Entitic vol] 9.7 fL 7.4 - 10.4 fL [facility] Platelets (Bld) [#/Vol] 164 10*3/uL 140 - 440 K/uL [facility] RBC (Bld) [#/Vol] 2.33 10*6/uL Abnormal [facility] RDW [facility] WBC (Bld) [#/Vol] 5.1 10*3/uL 3.9 - 11 K/uL [facility] Serum or plasma carcinoembry onic antigen measurement (mass/volume)Ordered By: Maureen Campbell on 05-29-2024 Carcinoembryonic Ag [Mass/Vol] 2.1 ng/mL [facility] Absolute lymphocyte countOrd ered By: Fransisco Lawson on 12-18-2023 Lymphocytes Auto (Unsp spec) [#/Vol] 1.23 10*3/uL 0.83-4.51 [facility] Automated lymphocyte count a s percentage of total leukocytesOrdered By: Fransisco Lawson on 12-18-2023 Lymphocytes/100 WBC Auto (Unsp spec) 23.1 % 19-41 [facility] Basophil percentageOrdered B y: Fransisco Lawson on 12-18-2023 Basophils/100 WBC (Bld) 0.6 % 0-1 [facility] Chloride [Moles/Vol] 112 mmol/L 98-107 [facility] Eosinophils/100 WBC (Bld) 2.6 % 0-5 [facility] Glucose [Mass/Vol] 184 mg/dL 74-106 [facility] Comment on above: Fasting Glucose resu lt greater than or equal to 126 mg/dL suggests DIABETES MELLITUS per A.D.A. criteria. Hemoglobin (Bld) [Mass/Vol] 8.3 g/dL 13.0-16.5 [facility] Monocytes/100 WBC (Bld) 6.2 % 0-10 [facility] Neutrophils (Bld) [#/Vol] 3.6 10*3/uL 2.0-7.7 [facility] Neutrophils/100 WBC (Bld) 66.9 % 47-70 [facility] Potassium [Moles/Vol] 5.3 mmol/L 3.5-5.1 [facility] Sodium [Moles/Vol] 138 mmol/L 136-145 [facility] WBC (Bld) [#/Vol] 5.3 10*3/uL 4.4-11.0 [facility] Determination of erythrocyte mean corpuscular volume (MCV)Ordered By: Fransisco Lawson on 12-18-2023 MCV (RBC) [Entitic vol] 88.1 fL 80-94 [facility] Erythrocyte distribution wid th ratioOrdered By: Fransisco Lawson on 12-18-2023 Erythrocyte distribution width (RBC) [Ratio] 13.2 % 11.6-14.6 [facility] Erythrocyte distribution wid th standard deviationOrdered By: Fransisco Lawson on 12-18-2023 Erythrocyte distribution width (RBC) [Entitic vol] 42.4 fL 35.1-43.9 [facility] Hematocrit Auto (Bld) [Volum e fraction]Ordered By: Fransisco Lawson on 12-18-2023 Hematocrit (Bld) [Volume fraction] 24.4 % 40-54 [facility] Immature granulocytes/100 WB C Auto (Bld)Ordered By: Fransisco Lawson on 12-18-2023 Immature granulocytes/100 WBC (Bld) 0.600 % 0.0-0.9 [facility] Comment on above: IG% - Immature Granu locytes (promyelocytes, myelocytes and metamyelocytes) > 1% indicates that a LEFT SHIFT is Present. Laboratory - Chemistry and C hemistry - challengeOrdered By: Fransisco Lawson on 12-18-2023 CO2 [Moles/Vol] 22.0 mmol/L 21.0-32.0 [facility] Urea nitrogen/Creatinine [Mass ratio] 8.5 mg/mg 10-20 [facility] Laboratory - Hematology and Cell countsOrdered By: Fransisco Lawson on 12-18-2023 MCH (RBC) [Entitic mass] 30.0 pg 27.0-32.0 [facility] MCHC (RBC) [Mass/Vol] 34.0 g/dL 32-36 [facility] Nucleated RBC/100 WBC (Bld) [Ratio] 0 % 0-5 [facility] Platelet mean volume (Bld) [Entitic vol] 9.9 fL 6.2-12.0 [facility] Platelets (Bld) [#/Vol] 183 10*3/uL 150-450 [facility] No Panel InformationOrdered By: Fransisco Lawson on 12-18-2023 Estimated Creatinine Clearance Calc 23.14 ml/min [facility] Estimated GFR (MDRD) Amer 20 mL/min >60 [facility] Comment on above: GFR Calc Estimated GFR (MDRD) Non-Af Amer 17 mL/min >60 [facility] Comment on above: Non- GFR Calc RBC Auto (Bld) [#/Vol]Ordere d By: Fransisco Lawson on 12-18-2023 RBC (Bld) [#/Vol] 2.77 10*6/uL 4.6-6.[address] [facility] Serum or plasma calcium abhi urement (mass/volume)Ordered By: Fransisco Lawson on 12-18-2023 Calcium [Mass/Vol] 7.7 mg/dL 8.5-10.1 [facility] Serum or plasma creatinine m easurement (mass/volume)Ordered By: Fransisco Lawson on 12-18-2023 Creatinine [Mass/Vol] 4.00 mg/dL 0.70-1.30 [facility] Comment on above: The validity of the calculated GFR & GFRAA in patients over 70 years has not been determined. Clinical correlation is essential. Serum or plasma urea nitroge n measurement (mass/volume)Ordered By: Fransisco Lawson on 12-18-2023 Urea nitrogen [Mass/Vol] 34 mg/dL 7-18 [facility] Thin prep Papanicolaou smear with manual screeningOrdered By: Fransisco Lawson on 12-18-2023 Thin prep Papanicolaou smear with manual screening 4 5-15 [facility] Basophil percentageOrdered B y: Juana Harvey on 12-09-2023 Basophil percentage 4.4 mg/dL 2.5-4.[address] [facility] Chloride [Moles/Vol] 115 mmol/L 98-107 [facility] Glucose [Mass/Vol] 114 mg/dL 74-106 [facility] Comment on above: Fasting Glucose resu lt from 100 to 125 mg/dL suggests IMPAIRED HOMEOSTASIS per A.D.A. criteria. Potassium [Moles/Vol] 4.5 mmol/L 3.5-5.1 [facility] Sodium [Moles/Vol] 140 mmol/L 136-145 [facility] Laboratory - Chemistry and C hemistry - challengeOrdered By: Juana Harvey on 12-09-2023 CO2 [Moles/Vol] 19.0 mmol/L 21.0-32.0 [facility] Urea nitrogen/Creatinine [Mass ratio] 9.0 mg/mg 10-20 [facility] No Panel InformationOrdered By: Juana Harvey on 12-09-2023 Estimated Creatinine Clearance Calc 23.51 ml/min [facility] Estimated GFR (MDRD) Amer 21 mL/min >60 [facility] Comment on above: GFR Calc Estimated GFR (MDRD) Non-Af Amer 17 mL/min >60 [facility] Comment on above: Non- GFR Calc Serum or plasma calcium abhi urement (mass/volume)Ordered By: Juana Harvey on 12-09-2023 Calcium [Mass/Vol] 7.9 mg/dL 8.5-10.1 [facility] Serum or plasma creatinine m easurement (mass/volume)Ordered By: Juana Harvey on 12-09-2023 Creatinine [Mass/Vol] 3.89 mg/dL 0.70-1.30 [facility] Comment on above: The validity of the calculated GFR & GFRAA in patients over 70 years has not been determined. Clinical correlation is essential. Serum or plasma urea nitroge n measurement (mass/volume)Ordered By: Juana Harvey on 12-09-2023 Urea nitrogen [Mass/Vol] 35 mg/dL 7-18 [facility] Thin prep Papanicolaou smear with manual screeningOrdered By: Alfredo Ag on 12-09-2023 Thin prep Papanicolaou smear with manual screening 85 mg/dL 74-106 [facility] Comment on above: MANAGEMENT OF PATIEN T CARE PER NURSING PROTOCOL Thin prep Papanicolaou smear with manual screeningOrdered By: Juana Harvey on 12-09-2023 Thin prep Papanicolaou smear with manual screening 2.2 g/dL 3.2-5.0 [facility] Absolute lymphocyte countOrd ered By: Landry James on 12-08-2023 Lymphocytes Auto (Unsp spec) [#/Vol] 1.40 10*3/uL 0.83-4.51 [facility] Automated lymphocyte count a s percentage of total leukocytesOrdered By: Landry James on 12-08-2023 Lymphocytes/100 WBC Auto (Unsp spec) 25.6 % 19-41 [facility] Basophil percentageOrdered B y: Juana Harvey on 12-08-2023 Basophil percentage 0-5 SEEN /hpf 0-5 [facility] Basophil percentageOrdered B y: Landry James on 12-08-2023 Basophils/100 WBC (Bld) 0.4 % 0-1 [facility] Bilirubin [Mass/Vol] 0.20 mg/dL 0.20-1.00 [facility] Comment on above: For patients on eltr ombopag therapy, use of Dimension [place] TBIL is not recommended. Cholesterol [Mass/Vol] 225 mg/dL <200 [facility] Comment on above: <200 mg/dL Desirable 200-240 mg/dL Borderline >240 mg/dL High Risk Eosinophils/100 WBC (Bld) 1.1 % 0-5 [facility] Hemoglobin (Bld) [Mass/Vol] 8.8 g/dL 13.0-16.5 [facility] Monocytes/100 WBC (Bld) 3.7 % 0-10 [facility] Neutrophils (Bld) [#/Vol] 3.7 10*3/uL 2.0-7.7 [facility] Neutrophils/100 WBC (Bld) 68.3 % 47-70 [facility] Protein [Mass/Vol] 5.9 g/dL 6.4-8.2 [facility] Triglyceride [Mass/Vol] 439 mg/dL <199 [facility] Comment on above: The drugs N-Acetylcy steine and Metamizole may falsely depress this assay. TRIGLYCERIDE IS GREATER THAN 400 mg/dL. LDL RESULT IS INVALID AND WILL NOT BE REPORTED.Serum Triglycerides Reference Interval Normal <150 mg/dL Borderline high 150 - 199 mg/dL High 200 - 499 mg/dL Very High > or = 500 mg/dL WBC (Bld) [#/Vol] 5.5 10*3/uL 4.4-11.0 [facility] Bilirubin Test strip Ql (U)O rdered By: Juana Harvey on 12-08-2023 Bilirubin Ql (U) Negative Negative [facility] Determination of erythrocyte mean corpuscular volume (MCV)Ordered By: Landry James on 12-08-2023 MCV (RBC) [Entitic vol] 89.4 fL 80-94 [facility] Erythrocyte distribution wid th ratioOrdered By: Landry James on 12-08-2023 Erythrocyte distribution width (RBC) [Ratio] 13.7 % 11.6-14.6 [facility] Erythrocyte distribution wid th standard deviationOrdered By: Landry James on 12-08-2023 Erythrocyte distribution width (RBC) [Entitic vol] 44.6 fL 35.1-43.9 [facility] Hematocrit Auto (Bld) [Volum e fraction]Ordered By: Landry James on 12-08-2023 Hematocrit (Bld) [Volume fraction] 26.1 % 40-54 [facility] Immature granulocytes/100 WB C Auto (Bld)Ordered By: Landry James on 12-08-2023 Immature granulocytes/100 WBC (Bld) 0.900 % 0.0-0.9 [facility] Comment on above: IG% - Immature Granu locytes (promyelocytes, myelocytes and metamyelocytes) > 1% indicates that a LEFT SHIFT is Present. Ketones Test strip Ql (U)Ord ered By: Juana Harvey on 12-08-2023 Ketones Ql (U) Negative Negative [facility] Laboratory - Chemistry and C hemistry - challengeOrdered By: Landry James on 12-08-2023 Albumin/Globulin [Mass ratio] 0.6 {ratio} 0.9-2.4 [facility] ALP [Catalytic activity/Vol] 75 U/L 45-117 [facility] ALT [Catalytic activity/Vol] 10 U/L 16-61 [facility] Cholesterol in HDL [Mass/Vol] 37 mg/dL >40 [facility] Comment on above: The drugs N-Acetylcy steine and Metamizole may falsely depress this assay. Reference Range HDL <40 mg/dL Low HDL Cholesterol HDL >or= 60 mg/dL High HDL Cholesterol Globulin (S) [Mass/Vol] 3.6 g/dL 2.2-4.2 [facility] Magnesium [Mass/Vol] 1.5 mg/dL 1.6-2.6 [facility] Laboratory - Hematology and Cell countsOrdered By: Landry James on 12-08-2023 MCH (RBC) [Entitic mass] 30.1 pg 27.0-32.0 [facility] MCHC (RBC) [Mass/Vol] 33.7 g/dL 32-36 [facility] Nucleated RBC/100 WBC (Bld) [Ratio] 0 % 0-5 [facility] Platelet mean volume (Bld) [Entitic vol] 10.0 fL 6.2-12.0 [facility] Platelets (Bld) [#/Vol] 176 10*3/uL 150-450 [facility] Mucus LM Ql (Urine sed)Order ed By: Juana Harvey on 12-08-2023 Mucus Ql (Urine sed) 0 SEEN /hpf [facility] Nitrite Test strip Ql (U)Ord ered By: Juana Harvey on 12-08-2023 Nitrite Ql (U) Negative Negative [facility] No Panel InformationOrdered By: Juana Harvey on 12-08-2023 Urine RBC 0-5 SEEN /hpf 0-5 [facility] No Panel InformationOrdered By: Landry James on 12-08-2023 LDL Cholesterol [facility] Comment on above: Test not performed VLDL Cholesterol [facility] Comment on above: Test not performed Protein Test strip Ql (U)Ord ered By: Juana Harvey on 12-08-2023 Protein Ql (U) 500 mg/dl Negative [facility] RBC Auto (Bld) [#/Vol]Ordere d By: Landry James on 12-08-2023 RBC (Bld) [#/Vol] 2.92 10*6/uL 4.6-6.[address] [facility] Serum or plasma thyroid stim ulating hormone (TSH) measurement (units/volume)Ordered By: Landry James on 12-08-2023 TSH Qn 0.34 uIU/mL 0.358-3.74 [facility] Squamous epithelial cells de tection in urine sediment by light microscopyOrdered By: Juana Harvey on 12-08-2023 Epithelial cells.squamous LM Ql (Urine sed) 0 SEEN /hpf 0-5 [facility] Thin prep Papanicolaou smear with manual screeningOrdered By: Landry James on 12-08-2023 Thin prep Papanicolaou smear with manual screening 8 U/L 15-37 [facility] Thin prep Papanicolaou smear with manual screening 5 5-15 [facility] Urine blood detectionOrdered By: Juana Harvey on 12-08-2023 RBC Ql (U) 10 /ul Negative [facility] Urine clarityOrdered By: Josh Harvey on 12-08-2023 Clarity (U) Clear Clear [facility] Urine color determinationOrd ered By: Juana Harvey on 12-08-2023 Color (U) Yellow Yellow [facility] Urine glucose detectionOrder ed By: Juana Harvey on 12-08-2023 Glucose Ql (U) 50 mg/dl Normal [facility] Urine leukocyte esterase det ection by dipstickOrdered By: Juana Harvey on 12-08-2023 Leukocyte esterase Test strip Ql (U) Negative Negative [facility] Urine pHOrdered By: Juana Harvey on 12-08-2023 pH (U) 6.0 [pH] 5.0 - 8.0 [facility] Urine sediment bacteria coun t by microscopy (number/high power field)Ordered By: Juana Harvey on 12-08-2023 Bacteria LM.HPF (Urine sed) [#/Area] 0 /[HPF] None Seen [facility] Urine specific gravity measu rementOrdered By: Juana Harvey on 12-08-2023 Specific gravity (U) [Rel density] 1.015 1.002-1.030 [facility] Urine urobilinogen measureme ntOrdered By: Juana Harvey on 12-08-2023 Urobilinogen Ql (U) Normal mg/dl Normal [facility] Whole blood hemoglobin A1c/t otal hemoglobin ratio (mass fraction)Ordered By: Landry James on 12-08-2023 HbA1c (Bld) [Mass fraction] 7.3 % 3.8-5.6 [facility] Comment on above: Normal < 5.7 % Predi abetic 5.7 - 6.4 % Diabetic >or= 6.5 % Please note range changes. Absolute lymphocyte countOrd ered By: Farnsisco Lawson on 12-07-2023 Lymphocytes Auto (Unsp spec) [#/Vol] 1.63 10*3/uL 0.83-4.51 [facility] Automated lymphocyte count a s percentage of total leukocytesOrdered By: Fransisco Lawson on 12-07-2023 Lymphocytes/100 WBC Auto (Unsp spec) 31.0 % 19-41 [facility] Basophil percentageOrdered B y: Fransisco Lawson on 12-07-2023 Basophils/100 WBC (Bld) 0.6 % 0-1 [facility] Chloride [Moles/Vol] 113 mmol/L 98-107 [facility] Eosinophils/100 WBC (Bld) 1.3 % 0-5 [facility] Glucose [Mass/Vol] 186 mg/dL 74-106 [facility] Comment on above: Fasting Glucose resu lt greater than or equal to 126 mg/dL suggests DIABETES MELLITUS per A.D.A. criteria. Hemoglobin (Bld) [Mass/Vol] 8.6 g/dL 13.0-16.5 [facility] Monocytes/100 WBC (Bld) 5.3 % 0-10 [facility] Neutrophils (Bld) [#/Vol] 3.2 10*3/uL 2.0-7.7 [facility] Neutrophils/100 WBC (Bld) 61.2 % 47-70 [facility] Potassium [Moles/Vol] 4.7 mmol/L 3.5-5.1 [facility] Sodium [Moles/Vol] 136 mmol/L 136-145 [facility] WBC (Bld) [#/Vol] 5.3 10*3/uL 4.4-11.0 [facility] Basophil percentageOrdered B y: Grisel Timmons on 12-07-2023 Bilirubin [Mass/Vol] 0.20 mg/dL 0.20-1.00 [facility] Comment on above: For patients on eltr ombopag therapy, use of Dimension [place] TBIL is not recommended. Chloride [Moles/Vol] 111 mmol/L 98-107 [facility] Glucose [Mass/Vol] 198 mg/dL 74-106 [facility] Comment on above: Fasting Glucose resu lt greater than or equal to 126 mg/dL suggests DIABETES MELLITUS per A.D.A. criteria. Potassium [Moles/Vol] 5.7 mmol/L 3.5-5.1 [facility] Protein [Mass/Vol] 6.8 g/dL 6.4-8.2 [facility] Sodium [Moles/Vol] 137 mmol/L 136-145 [facility] Determination of erythrocyte mean corpuscular volume (MCV)Ordered By: Fransisco Lawson on 12-07-2023 MCV (RBC) [Entitic vol] 89.4 fL 80-94 [facility] Erythrocyte distribution wid th ratioOrdered By: Fransisco Lawson on 12-07-2023 Erythrocyte distribution width (RBC) [Ratio] 13.5 % 11.6-14.6 [facility] Erythrocyte distribution wid th standard deviationOrdered By: Fransisco Lawson on 12-07-2023 Erythrocyte distribution width (RBC) [Entitic vol] 43.9 fL 35.1-43.9 [facility] Hematocrit Auto (Bld) [Volum e fraction]Ordered By: Fransisco Lawson on 12-07-2023 Hematocrit (Bld) [Volume fraction] 25.2 % 40-54 [facility] Immature granulocytes/100 WB C Auto (Bld)Ordered By: Fransisco Lawson on 12-07-2023 Immature granulocytes/100 WBC (Bld) 0.600 % 0.0-0.9 [facility] Comment on above: IG% - Immature Granu locytes (promyelocytes, myelocytes and metamyelocytes) > 1% indicates that a LEFT SHIFT is Present. Laboratory - Chemistry and C hemistry - challengeOrdered By: Fransisco Lawson on 12-07-2023 CO2 [Moles/Vol] 20.0 mmol/L 21.0-32.0 [facility] Urea nitrogen/Creatinine [Mass ratio] 8.9 mg/mg 10- [facility] Laboratory - Chemistry and C hemistry - challengeOrdered By: Grisel Timmons on 12-07-2023 Albumin/Globulin [Mass ratio] 0.7 {ratio} 0.9-2.4 [facility] ALP [Catalytic activity/Vol] 87 U/L 45-117 [facility] ALT [Catalytic activity/Vol] 11 U/L 16-61 [facility] CO2 [Moles/Vol] 23.0 mmol/L 21.0-32.0 [facility] Globulin (S) [Mass/Vol] 4.1 g/dL 2.2-4.2 [facility] Urea nitrogen/Creatinine [Mass ratio] 8.5 mg/mg 10-20 [facility] Laboratory - Hematology and Cell countsOrdered By: Fransisoc Lawson on 12-07-2023 MCH (RBC) [Entitic mass] 30.5 pg 27.0-32.0 [facility] MCHC (RBC) [Mass/Vol] 34.1 g/dL 32-36 [facility] Nucleated RBC/100 WBC (Bld) [Ratio] 0 % 0-5 [facility] Platelet mean volume (Bld) [Entitic vol] 10.5 fL 6.2-12.0 [facility] Platelets (Bld) [#/Vol] 202 10*3/uL 150-450 [facility] Laboratory - Hematology and Cell countson 12-07-2023 HbA1c (Bld) [Mass fraction] 7.5 % 4.2-6.3 [facility] No Panel InformationOrdered By: Fransisco Lawson on 12-07-2023 Estimated Creatinine Clearance Calc 21.05 ml/min [facility] Estimated GFR (MDRD) Amer 18 mL/min >60 [facility] Comment on above: GFR Calc Estimated GFR (MDRD) Non-Af Amer 15 mL/min >60 [facility] Comment on above: Non- GFR Calc No Panel InformationOrdered By: Grisel Timmons on 12-07-2023 Estimated GFR (MDRD) Amer 17 mL/min >60 [facility] Comment on above: GFR Calc Estimated GFR (MDRD) Non-Af Amer 14 mL/min >60 [facility] Comment on above: Non- GFR Calc RBC Auto (Bld) [#/Vol]Ordere d By: Fransisco Lawson on 12-07-2023 RBC (Bld) [#/Vol] 2.82 10*6/uL 4.6-6.[address] [facility] Serum or plasma calcium abhi urement (mass/volume)Ordered By: Fransisco Lawson on 12-07-2023 Calcium [Mass/Vol] 7.7 mg/dL 8.5-10.1 [facility] Serum or plasma calcium abhi urement (mass/volume)Ordered By: Grisel Timmons on 12-07-2023 Calcium [Mass/Vol] 8.9 mg/dL 8.5-10.1 [facility] Serum or plasma creatinine m easurement (mass/volume)Ordered By: Fransisco Lawson on 12-07-2023 Creatinine [Mass/Vol] 4.39 mg/dL 0.70-1.30 [facility] Comment on above: The validity of the calculated GFR & GFRAA in patients over 70 years has not been determined. Clinical correlation is essential. Serum or plasma creatinine m easurement (mass/volume)Ordered By: Grisel Timmons on 12-07-2023 Creatinine [Mass/Vol] 4.57 mg/dL 0.70-1.30 [facility] Comment on above: The validity of the calculated GFR & GFRAA in patients over 70 years has not been determined. Clinical correlation is essential. Serum or plasma urea nitroge n measurement (mass/volume)Ordered By: Fransisco Lawson on 12-07-2023 Urea nitrogen [Mass/Vol] 39 mg/dL 03-14 [facility] Serum or plasma urea nitroge n measurement (mass/volume)Ordered By: Grisel Timmons on 12-07-2023 Urea nitrogen [Mass/Vol] 39 mg/dL 03-14 [facility] Thin prep Papanicolaou smear with manual screeningOrdered By: Fransisco Lawson on 12-07-2023 Thin prep Papanicolaou smear with manual screening 3 - [facility] Thin prep Papanicolaou smear with manual screeningOrdered By: Grisel Timmons on 12-07-2023 Thin prep Papanicolaou smear with manual screening 2.7 g/dL 3.2-5.0 [facility] Thin prep Papanicolaou smear with manual screening 9 U/L 15-37 [facility] Thin prep Papanicolaou smear with manual screening 3 - [facility] Absolute lymphocyte countOrd ered By: Jimmie Ibarra on 11-30-2023 Lymphocytes Auto (Unsp spec) [#/Vol] 1.69 10*3/uL 0.83-4.51 [facility] Automated lymphocyte count a s percentage of total leukocytesOrdered By: Jimmie Ibarra on 11-30-2023 Lymphocytes/100 WBC Auto (Unsp spec) 36.9 % 19-41 [facility] Basophil percentageOrdered B y: Jimmie Ibarra on 11-30-2023 Basophils/100 WBC (Bld) 0.9 % 0-1 [facility] Bilirubin [Mass/Vol] 0.30 mg/dL 0.20-1.00 [facility] Comment on above: For patients on eltr ombopag therapy, use of Dimension [place] TBIL is not recommended. Chloride [Moles/Vol] 111 mmol/L 98-107 [facility] Eosinophils/100 WBC (Bld) 2.2 % 0-5 [facility] Glucose [Mass/Vol] 133 mg/dL 74-106 [facility] Comment on above: Fasting Glucose resu lt greater than or equal to 126 mg/dL suggests DIABETES MELLITUS per A.D.A. criteria. Hemoglobin (Bld) [Mass/Vol] 8.3 g/dL 13.0-16.5 [facility] LDH [Catalytic activity/Vol] 175 U/L 87-241 [facility] Monocytes/100 WBC (Bld) 6.1 % 0-10 [facility] Neutrophils (Bld) [#/Vol] 2.4 10*3/uL 2.0-7.7 [facility] Neutrophils/100 WBC (Bld) 53.0 % 47-70 [facility] Potassium [Moles/Vol] 4.8 mmol/L 3.5-5.1 [facility] Protein [Mass/Vol] 5.9 g/dL 6.4-8.2 [facility] Sodium [Moles/Vol] 137 mmol/L 136-145 [facility] WBC (Bld) [#/Vol] 4.6 10*3/uL 4.4-11.0 [facility] Determination of erythrocyte mean corpuscular volume (MCV)Ordered By: Jimmie Ibarra on 11-30-2023 MCV (RBC) [Entitic vol] 91.4 fL 80-94 [facility] Erythrocyte distribution wid th ratioOrdered By: Jimmie Ibarra on 11-30-2023 Erythrocyte distribution width (RBC) [Ratio] 13.2 % 11.6-14.6 [facility] Erythrocyte distribution wid th standard deviationOrdered By: Jimmie Ibarra on 11-30-2023 Erythrocyte distribution width (RBC) [Entitic vol] 43.7 fL 35.1-43.9 [facility] Hematocrit Auto (Bld) [Volum e fraction]Ordered By: Jimmie Ibarra on 11-30-2023 Hematocrit (Bld) [Volume fraction] 25.5 % 40-54 [facility] Immature granulocytes/100 WB C Auto (Bld)Ordered By: [facility] on 11-30-2023 Immature granulocytes/100 WBC (Bld) 0.900 % 0.0-0.9 [facility] Comment on above: IG% - Immature Granu locytes (promyelocytes, myelocytes and metamyelocytes) > 1% indicates that a LEFT SHIFT is Present. Iron measurement (mass/mass) Ordered By: Jimmie Ibarra on 11-30-2023 Iron (Unsp spec) [Mass/Mass] 81 ug/dL 65-175 [facility] Laboratory - Chemistry and C hemistry - challengeOrdered By: [facility] on 11-30-2023 Albumin/Globulin [Mass ratio] 0.6 {ratio} 0.9-2.4 [facility] ALP [Catalytic activity/Vol] 63 U/L 45-117 [facility] ALT [Catalytic activity/Vol] 11 U/L 16-61 [facility] CO2 [Moles/Vol] 20.0 mmol/L 21.0-32.0 [facility] Ferritin [Mass/Vol] 130 ng/mL 26-[address] [facility] Globulin (S) [Mass/Vol] 3.6 g/dL 2.2-4.2 [facility] Urea nitrogen/Creatinine [Mass ratio] 10.5 mg/mg 10-20 [facility] Laboratory - Hematology and Cell countsOrdered By: Jimmie Ibarra on 11-30-2023 MCH (RBC) [Entitic mass] 29.7 pg 27.0-32.0 [facility] MCHC (RBC) [Mass/Vol] 32.5 g/dL 32-36 [facility] Nucleated RBC/100 WBC (Bld) [Ratio] 0 % 0-5 [facility] Platelet mean volume (Bld) [Entitic vol] 10.0 fL 6.2-12.0 [facility] Platelets (Bld) [#/Vol] 160 10*3/uL 150-450 [facility] No Panel InformationOrdered By: Jimmie Ibarra on 11-30-2023 Estimated Creatinine Clearance Calc 21.02 ml/min [facility] Estimated GFR (MDRD) Amer 18 mL/min >60 [facility] Comment on above: GFR Calc Estimated GFR (MDRD) Non-Af Amer 15 mL/min >60 [facility] Comment on above: Non- GFR Calc Total Iron Binding Capacity 254 ug/dL 250-450 [facility] RBC Auto (Bld) [#/Vol]Ordere d By: Jimmie Ibarra on 11-30-2023 RBC (Bld) [#/Vol] 2.79 10*6/uL 4.6-6.[address] [facility] Serum or plasma calcium abhi urement (mass/volume)Ordered By: Jimmie Ibarra on 11-30-2023 Calcium [Mass/Vol] 8.1 mg/dL 8.5-10.1 [facility] Serum or plasma creatinine m easurement (mass/volume)Ordered By: Jimmie Ibarra on 11-30-2023 Creatinine [Mass/Vol] 4.40 mg/dL 0.70-1.30 [facility] Comment on above: The validity of the calculated GFR & GFRAA in patients over 70 years has not been determined. Clinical correlation is essential. Serum or plasma iron saturat ion measurement (mass fraction)Ordered By: Jimmie Ibarra on 11-30-2023 Iron saturation [Mass fraction] 31.9 % 15.0-55.0 [facility] Serum or plasma urea nitroge n measurement (mass/volume)Ordered By: Jimmie Ibarra on 11-30-2023 Urea nitrogen [Mass/Vol] 46 mg/dL 7-18 [facility] Thin prep Papanicolaou smear with manual screeningOrdered By: Jimmie Ibarra on 11-30-2023 Thin prep Papanicolaou smear with manual screening 2.3 g/dL 3.2-5.0 [facility] Thin prep Papanicolaou smear with manual screening 6 U/L 15-37 [facility] Thin prep Papanicolaou smear with manual screening 6 5-15 [facility] Vitamin B12 measurementOrder ed By: Jimmie Ibarra on 11-30-2023 Cobalamin (Vitamin B12) [Mass/Vol] 324 pg/mL 211-911 [facility] Laboratory - Microbiology an d Antimicrobial susceptibilityOrdered By: Breanna Friedman on 10-16-2023 SARS-CoV-2 (COVID-19) RNA RAYMOND+probe Ql (Unsp spec) Influenzae A [facility] SARS-CoV-2 (COVID-19) RNA RAYMOND+probe Ql (Unsp spec) Influenzae A [facility] Basophil percentageOrdered B y: Jamaal Rm on 08-08-2023 Basophil percentage 4.3 mg/dL 2.5-4.[address] [facility] Chloride [Moles/Vol] 107 mmol/L 98-107 [facility] Glucose [Mass/Vol] 216 mg/dL 74-106 [facility] Comment on above: Glucose result great er than or equal to 200 mg/dLsuggests DIABETES MELLITUS per A.D.A. criteria. Potassium [Moles/Vol] 4.0 mmol/L 3.5-5.1 [facility] Sodium [Moles/Vol] 135 mmol/L 136-145 [facility] WBC (Bld) [#/Vol] 6.4 10*3/uL 4.4-11.0 [facility] Blood erythrocytes count (nu mber/volume)Ordered By: Jamaal Rm on 08-08-2023 RBC (Bld) [#/Vol] 3.19 10*6/uL 4.6-6.[address] [facility] Blood hemoglobin measurement (mass/volume)Ordered By: Jamaal Rm on 08-08-2023 Hemoglobin (Bld) [Mass/Vol] 9.9 g/dL 13.0-16.5 [facility] Blood platelet mean volumeOr dered By: Jamaal Rm on 08-08-2023 Platelet mean volume (Bld) [Entitic vol] 9.8 fL 6.2-12.0 [facility] Determination of erythrocyte mean corpuscular volume (MCV)Ordered By: Jamaal Rm on 08-08-2023 MCV (RBC) [Entitic vol] 89.0 fL 80-94 [facility] Hematocrit Auto (Bld) [Volum e fraction]Ordered By: Jamaal Rm on 08-08-2023 Hematocrit (Bld) [Volume fraction] 28.4 % 40-54 [facility] Laboratory - Chemistry and C hemistry - challengeOrdered By: Jamaal Rm on 08-08-2023 CO2 [Moles/Vol] 25.0 mmol/L 21.0-32.0 [facility] Urea nitrogen/Creatinine [Mass ratio] 10.8 mg/mg 10-20 [facility] Laboratory - Hematology and Cell countsOrdered By: Jamaal Rm on 08-08-2023 Erythrocyte distribution width (RBC) [Entitic vol] 43.8 fL 35.1-43.9 [facility] Erythrocyte distribution width (RBC) [Ratio] 13.5 % 11.6-14.6 [facility] MCH (RBC) [Entitic mass] 31.0 pg 27.0-32.0 [facility] MCHC Auto (RBC) [Mass/Vol]Or dered By: Jamaal Rm on 08-08-2023 MCHC (RBC) [Mass/Vol] 34.9 g/dL 32-36 [facility] No Panel InformationOrdered By: Robb Paulson on 08-08-2023 Carbamazepine (Tegretol) Level 11.8 ug/mL 4.0-12.0 [facility] No Panel InformationOrdered By: Jamaal Rm on 08-08-2023 Estimated GFR (MDRD) Amer 26 mL/min >60 [facility] Comment on above: GFR Calc Estimated GFR (MDRD) Non-Af Amer 21 mL/min >60 [facility] Comment on above: Non- GFR Calc Parathyroid Hormone (Intact) 181.8 pg/mL 18.4-80.1 [facility] Urine Microalbumin/Creatinine Ratio 14430.7 mg/g CRE <30 [facility] Vitamin D 25-Hydroxy 7.4 ng/mL [facility] Comment on above: Vitamin D 25(OH) Sta tus Range Deficiency <20 ng/mL (50nmol/L) Insufficiency 20 - 30 ng/mL (50 - 75 nmol/L) Sufficiency 30 - 100 ng/mL (75 - 250 nmol/L) Toxicity >100 ng/mL (>250 nmol/L) Platelets bldOrdered By: Edwin Rm on 08-08-2023 Platelets (Bld) [#/Vol] 232 10*3/uL 150-450 [facility] Serum or plasma albumin abhi urement (mass/volume)Ordered By: Jamaal Rm on 08-08-2023 Albumin [Mass/Vol] 2.7 g/dL 3.2-5.0 [facility] Serum or plasma calcium abhi urement (mass/volume)Ordered By: aJmaal Rm on 08-08-2023 Calcium [Mass/Vol] 8.4 mg/dL 8.5-10.1 [facility] Serum or plasma creatinine m easurement (mass/volume)Ordered By: Jamaal Rm on 08-08-2023 Creatinine [Mass/Vol] 3.23 mg/dL 0.70-1.30 [facility] Comment on above: The validity of the calculated GFR & GFRAA in patients over 70 years has not been determined. Clinical correlation is essential. Serum or plasma urea nitroge n measurement (mass/volume)Ordered By: Jamaal Rm on 08-08-2023 Urea nitrogen [Mass/Vol] 35 mg/dL 7-18 [facility] Thin prep Papanicolaou smear with manual screeningOrdered By: Jamaal Rm on 08-08-2023 Thin prep Papanicolaou smear with manual screening 5420.0 mg/L NO RANGE EST. [facility] Urine creatinine measurement (mass/volume)Ordered By: Jamaal Rm on 08-08-2023 Creatinine (U) [Mass/Vol] 51.10 mg/dL NO RANGE EST. [facility] Urine protein measurement (m ass/volume)Ordered By: Jamaal Rm on 08-08-2023 Protein (U) [Mass/Vol] 654.7 mg/dL 0.0-11.8 [facility] Urine protein/creatinine mas s ratioOrdered By: Jamaal Rm on 08-08-2023 Protein/Creatinine (U) [Mass ratio] 66410 mg/g CRE 0-200 [facility] Glucose Glucometer (dC) [M ass/Vol]Ordered By: Aquiles Warren on 08-02-2023 Glucose [Mass/Vol] 162 mg/dL 74-106 [facility] Comment on above: MANAGEMENT OF PATIEN T CARE PER NURSING PROTOCOL Absolute lymphocyte countOrd ered By: Aquiles Warren on 07-25-2023 Lymphocytes Auto (Unsp spec) [#/Vol] 1.82 10*3/uL 0.83-4.51 [facility] Albumin Elph [Mass/Vol]Order ed By: Aquiles Warren on 07-25-2023 Albumin [Mass/Vol] Not Reportable [facility] Basophil percentageOrdered B y: Aquiles Warren on 07-25-2023 Basophil percentage < 0.2 AI 0.0-0.[address] [facility] Basophils/100 WBC (Bld) 0.6 % 0-1 [facility] Eosinophils/100 WBC (Bld) 1.4 % 0-5 [facility] Neutrophils (Bld) [#/Vol] 4.1 10*3/uL 2.0-7.7 [facility] Neutrophils/100 WBC (Bld) 63.0 % 47-70 [facility] Triglyceride [Mass/Vol] 2740 mg/dL <199 [facility] Comment on above: The drugs N-Acetylcy steine and Metamizole may falsely depress this assay. Slight Icterus, Result may be falsely increased. Serum Triglycerides Reference Interval Normal <150 mg/dL Borderline high 150 - 199 mg/dL High 200 - 499 mg/dL Very High > or = 500 mg/dL WBC (Bld) [#/Vol] 6.5 10*3/uL 4.4-11.0 [facility] Blood erythrocytes count (nu mber/volume)Ordered By: Aquiles Warren on 07-25-2023 RBC (Bld) [#/Vol] 3.18 10*6/uL 4.6-6.[address] [facility] Blood hemoglobin measurement (mass/volume)Ordered By: Aquiles Warren on 07-25-2023 Hemoglobin (Bld) [Mass/Vol] 10.7 g/dL 13.0-16.5 [facility] Blood lymphocytes/100 leukoc ytesOrdered By: Aquiles Warren on 07-25-2023 Lymphocytes/100 WBC (Bld) 27.8 % 19-41 [facility] Blood monocytes/100 leukocyt esOrdered By: Aquiles Warren on 07-25-2023 Monocytes/100 WBC (Bld) 5.8 % 0-10 [facility] Blood platelet mean volumeOr dered By: Aquiles Warren on 07-25-2023 Platelet mean volume (Bld) [Entitic vol] 9.9 fL 6.2-12.0 [facility] Determination of erythrocyte mean corpuscular volume (MCV)Ordered By: Aquiles Warren on 07-25-2023 MCV (RBC) [Entitic vol] 91.8 fL 80-94 [facility] Erythrocyte sedimentation ra teOrdered By: Aquiles Warren on 07-25-2023 ESR (Bld) [Velocity] 7 mm/h 0-20 [facility] Hematocrit Auto (Bld) [Volum e fraction]Ordered By: Aquiles Warren on 07-25-2023 Hematocrit (Bld) [Volume fraction] 29.2 % 40-54 [facility] Hemoglobin in reticulocytes (mass per reticulocyte)Ordered By: Aquiles Warren on 07-25-2023 Hemoglobin (Reticulocytes) [Entitic mass] 34.4 pg 30-35 [facility] Interpretation of serum or p lasma protein pattern by immunofixation (narrative resultOrdered By: Aquiles Warren on 07-25-2023 Protein Fractions Immunofixation Rocco [Interp] Not Reportable [facility] Iron measurement (mass/mass) Ordered By: Aquiles Warren on 07-25-2023 Iron (Unsp spec) [Mass/Mass] 75 ug/dL 65-175 [facility] Laboratory - Chemistry and C hemistry - challengeOrdered By: Aquiles Warren on 07-25-2023 Cobalamin (Vitamin B12) [Mass/Vol] 483 pg/mL 211-911 [facility] Laboratory - Hematology and Cell countsOrdered By: Aquiles Warren on 07-25-2023 Erythrocyte distribution width (RBC) [Entitic vol] 45.1 fL 35.1-43.9 [facility] Erythrocyte distribution width (RBC) [Ratio] 13.5 % 11.6-14.6 [facility] Immature granulocytes/100 WBC (Bld) 1.400 % 0.0-0.9 [facility] Comment on above: IG% - Immature Granu locytes (promyelocytes, myelocytes and metamyelocytes) > 1% indicates that a LEFT SHIFT is Present. MCH (RBC) [Entitic mass] 33.6 pg 27.0-32.0 [facility] Nucleated RBC/100 WBC (Bld) [Ratio] 0 % 0-5 [facility] MCHC Auto (RBC) [Mass/Vol]Or dered By: Aquiles Warren on 07-25-2023 MCHC (RBC) [Mass/Vol] 36.6 g/dL 32-36 [facility] No Panel InformationOrdered By: Aquiles Warren on 07-25-2023 Centromere B Antibody <0.2 AI 0.0-0.9 [facility] Immature Reticulocyte Fraction 16.20 % 3.00-15.90 [facility] Immunoglobulin E See comment [facility] Comment on above: TEST RESULTS LIMITSI mmunoglobulin E, Total 5 Low IU/mL 6-495 TESTING PERFORMED AT [facility]. ORIGINAL REPORT ON FILE IN LAB CONTAINS ADDITIONAL TEST SITE INFORMATION. Immunoglobulin G4 Not Reportable [facility] Reticulocyte Count 1.84 % 0.5-1.5 [facility] A[employer]ULT[employer] RESEARCH TECHNICIAN Antibody <0.2 AI 0.0-0.9 [facility] Thyroid Stimulating Hormone (TSH) 1.44 uIU/mL 0.358-3.74 [facility] Total Iron Binding Capacity 232 ug/dL 250-450 [facility] Platelets bldOrdered By: Leonel Warren on 07-25-2023 Platelets (Bld) [#/Vol] 212 10*3/uL 150-450 [facility] Serum DNA double strand anti body assay (units/volume)Ordered By: Aquiles Warren on 07-25-2023 DNA double strand Ab Qn (S) [IU]/mL 0-9 [facility] Comment on above: Negative <5 Equivoca l 5 - 9 Positive >9 Serum IgG subclass 1 measure ment (mass/volume)Ordered By: Aquiles Warren on 07-25-2023 IgG subclass 1 (S) [Mass/Vol] Not Reportable [facility] Serum IgG subclass 2 measure ment (mass/volume)Ordered By: Aquiles Warren on 07-25-2023 IgG subclass 2 (S) [Mass/Vol] Not Reportable [facility] Serum IgG subclass 3 measure ment (mass/volume)Ordered By: Aquiles Warren on 07-25-2023 IgG subclass 3 (S) [Mass/Vol] Not Reportable [facility] Serum Anastasia-1 antibody assay (u nits/volume)Ordered By: Aquiles Warren on 07-25-2023 Anastasia-1 extractable nuclear Ab Qn (S) <0.2 AI 0.0-0.9 [facility] Serum Scl-70 extractable nuc lear antibody assay (units/volume)Ordered By: Aquiles Warren on 07-25-2023 SCL-70 extractable nuclear Ab Qn (S) <0.2 AI 0.0-0.9 [facility] Serum Albarran extractable nucl ear antibody detectionOrdered By: Aquiles Warren on 07-25-2023 Albarran extractable nuclear Ab Ql (S) <0.2 AI 0.0-0.9 [facility] Serum [id number] measu rement by electrophoresisOrdered By: Aquiles Warren on 07-25-2023 Alpha 1 globulin Elph [Mass/Vol] Not Reportable [facility] Serum or plasma C reactive p rotein measurement (mass/volume)Ordered By: Aquiles Warren on 07-25-2023 CRP [Mass/Vol] 15.30 mg/L 0.0-3.0 [facility] Comment on above: C-Reactive Protein ( CRP) provides useful information for thediagnosis, therapy and monitoring of inflammatory processesand associated diseases. For the evaluation of Relative Riskfor Cardiovascular Disease, a High Sensitivity CRP (HSCRP)should be ordered. Serum or plasma IgA measurem ent (mass/volume)Ordered By: Aquiles Warren on 07-25-2023 IgA [Mass/Vol] Not Reportable [facility] Serum or plasma IgG measurem ent (mass/volume)Ordered By: Aquiles Warren on 07-25-2023 IgG [Mass/Vol] See comment [facility] Comment on above: TEST RESULTS LIMITS IgG, Subclasses(1-4)IgG, Subclass 1 282 mg/dL 248-810IgG, Subclass 2 114 Low mg/dL 130-555IgG, Subclass 3 33 mg/dL 15-102IgG, Subclass 4 11 mg/dL 2-96 TESTING PERFORMED AT [facility]. ORIGINAL REPORT ON FILE IN LAB CONTAINS ADDITIONAL TEST SITE INFORMATION. IgG [Mass/Vol] Not Reportable [facility] Serum or plasma IgM measurem ent (mass/volume)Ordered By: Aquiles Warren on 07-25-2023 IgM [Mass/Vol] Not Reportable [facility] Serum or plasma beta globuli n measurement by electrophoresis (mass/volume)Ordered By: Aquiles Warren on 07-25-2023 Beta globulin Elph [Mass/Vol] Not Reportable [facility] Serum or plasma ferritin ngozi surement (mass/volume)Ordered By: Aquiles Warren on 07-25-2023 Ferritin [Mass/Vol] 187 ng/mL 26-[address] [facility] Serum or plasma gamma globul in measurement by electrophoresis (mass/volume)Ordered By: Aquiles Kelvin on 07-25-2023 Gamma globulin Elph [Mass/Vol] Not Reportable [facility] Thin prep Papanicolaou smear with manual screeningOrdered By: Aquiles Friend on 07-25-2023 Thin prep Papanicolaou smear with manual screening Not Reportable [facility] Total protein bloodOrdered B y: Aquiles Friend on 07-25-2023 Protein [Mass/Vol] See comment [facility] Comment on above: TEST RESULTS LIMITSI FE and PE, SerumImmunoglobulin G, Qn,Serum 762 mg/dL [id number] M, Qn,Serum 87 mg/dL 20-172Protein, Total 5.6 Low g/dL 6.0-8.5Albumin 2.7 Low g/dL 2.9-4.9Zphow-4-Dhqrulmu 0.2 g/dL 0.0-0.1Chwwj-7-Ypzrlycc 1.1 High g/dL 0.4-1.0Beta Globulin 0.9 g/dL 0.7-1.3Gamma Globulin 0.7 g/dL 2.2-3.9A/G Ratio 1.0 0.7-1.7Immunofixation Result,Serum Comment:Presence of monoclonal protein is unclear at this time. Suggest repeat in 3 to 6 months if clinically indicated.Please note: Protein electrophoresis scan will follow via computer, mail, or auto machinist delivery. TESTING PERFORMED AT [facility]. ORIGINAL REPORT ON FILE IN LAB CONTAINS ADDITIONAL TEST SITE INFORMATION. HEMOGLOBIN A1C (POC)on 06-23 HbA1c (Bld) [Mass fraction] 7.6 % Abnormal 4.2 - 5.6 % [facility] Absolute lymphocyte countOrd ered By: So Donaldson on 05-25-2023 Lymphocytes Auto (Unsp spec) [#/Vol] 1.43 10*3/uL 0.83-4.51 [facility] Absolute lymphocyte countOrd ered By: Maureen Shannan on 05-25-2023 Lymphocytes Auto (Unsp spec) [#/Vol] 1.51 10*3/uL 0.83-4.51 [facility] Basophil percentageOrdered B y: So Donaldson on 05-25-2023 Basophil percentage 0 SEEN /hpf 0-5 [facility] Basophils/100 WBC (Bld) 0.6 % 0-1 [facility] Chloride [Moles/Vol] 105 mmol/L 98-107 [facility] Eosinophils/100 WBC (Bld) 1.5 % 0-5 [facility] Glucose [Mass/Vol] 353 mg/dL 74-106 [facility] Comment on above: Glucose result great er than or equal to 200 mg/dLsuggests DIABETES MELLITUS per A.D.A. criteria. Neutrophils (Bld) [#/Vol] 2.9 10*3/uL 2.0-7.7 [facility] Neutrophils/100 WBC (Bld) 60.4 % 47-70 [facility] Potassium [Moles/Vol] 4.5 mmol/L 3.5-5.1 [facility] Sodium [Moles/Vol] 133 mmol/L 136-145 [facility] WBC (Bld) [#/Vol] 4.7 10*3/uL 4.4-11.0 [facility] Basophil percentageOrdered B y: Maureen Campbell on 05-25-2023 Basophils/100 WBC (Bld) 0.8 % 0-1 [facility] Bilirubin [Mass/Vol] 0.20 mg/dL 0.20-1.00 [facility] Comment on above: For patients on eltr ombopag therapy, use of Dimension [place] TBIL is not recommended. Chloride [Moles/Vol] 104 mmol/L 98-107 [facility] Eosinophils/100 WBC (Bld) 1.6 % 0-5 [facility] Glucose [Mass/Vol] 426 mg/dL 74-106 [facility] Comment on above: Glucose result great er than or equal to 200 mg/dLsuggests DIABETES MELLITUS per A.D.A. criteria. Neutrophils (Bld) [#/Vol] 3.0 10*3/uL 2.0-7.7 [facility] Neutrophils/100 WBC (Bld) 59.4 % 47-70 [facility] Potassium [Moles/Vol] 4.4 mmol/L 3.5-5.1 [facility] Protein [Mass/Vol] 6.6 g/dL 6.4-8.2 [facility] Sodium [Moles/Vol] 133 mmol/L 136-145 [facility] WBC (Bld) [#/Vol] 5.0 10*3/uL 4.4-11.0 [facility] Bilirubin Test strip Ql (U)O rdered By: So Donaldson on 05-25-2023 Bilirubin Ql (U) Negative Negative [facility] Blood erythrocytes count (nu mber/volume)Ordered By: So Donaldson on 05-25-2023 RBC (Bld) [#/Vol] 2.95 10*6/uL 4.6-6.[address] [facility] Blood erythrocytes count (nu mber/volume)Ordered By: Maureen Campbell on 05-25-2023 RBC (Bld) [#/Vol] 3.09 10*6/uL 4.6-6.[address] [facility] Blood hemoglobin measurement (mass/volume)Ordered By: So Donaldson on 05-25-2023 Hemoglobin (Bld) [Mass/Vol] 9.3 g/dL 13.0-16.5 [facility] Blood hemoglobin measurement (mass/volume)Ordered By: Maureen Campbell on 05-25-2023 Hemoglobin (Bld) [Mass/Vol] 9.5 g/dL 13.0-16.5 [facility] Blood lymphocytes/100 leukoc ytesOrdered By: So Donaldson on 05-25-2023 Lymphocytes/100 WBC (Bld) 30.3 % 19-41 [facility] Blood lymphocytes/100 leukoc ytesOrdered By: Maureen Campbell on 05-25-2023 Lymphocytes/100 WBC (Bld) 30.0 % 19-41 [facility] Blood monocytes/100 leukocyt esOrdered By: So Donaldson on 05-25-2023 Monocytes/100 WBC (Bld) 6.8 % 0-10 [facility] Blood monocytes/100 leukocyt esOrdered By: Maureen Campbell on 05-25-2023 Monocytes/100 WBC (Bld) 7.2 % 0-10 [facility] Blood platelet mean volumeOr dered By: So Donaldson on 05-25-2023 Platelet mean volume (Bld) [Entitic vol] 9.9 fL 6.2-12.0 [facility] Blood platelet mean volumeOr dered By: Maureen Campbell on 05-25-2023 Platelet mean volume (Bld) [Entitic vol] 10.2 fL 6.2-12.0 [facility] Determination of erythrocyte mean corpuscular volume (MCV)Ordered By: So Donaldson on 05-25-2023 MCV (RBC) [Entitic vol] 89.2 fL 80-94 [facility] Determination of erythrocyte mean corpuscular volume (MCV)Ordered By: Maureen Campbell on 05-25-2023 MCV (RBC) [Entitic vol] 90.3 fL 80-94 [facility] Hematocrit Auto (Bld) [Volum e fraction]Ordered By: So Donaldson on 05-25-2023 Hematocrit (Bld) [Volume fraction] 26.3 % 40-54 [facility] Hematocrit Auto (Bld) [Volum e fraction]Ordered By: Maureen Campbell on 05-25-2023 Hematocrit (Bld) [Volume fraction] 27.9 % 40-54 [facility] Ketones Test strip Ql (U)Ord ered By: oS Donaldson on 05-25-2023 Ketones Ql (U) Negative Negative [facility] Laboratory - Chemistry and C hemistry - challengeOrdered By: So Donaldson on 05-25-2023 CO2 [Moles/Vol] 22.0 mmol/L 21.0-32.0 [facility] Urea nitrogen/Creatinine [Mass ratio] 13.4 mg/mg 10-20 [facility] Laboratory - Chemistry and C hemistry - challengeOrdered By: Maureen Campbell on 05-25-2023 ALP [Catalytic activity/Vol] 65 U/L 45-117 [facility] ALT [Catalytic activity/Vol] 22 U/L 16-61 [facility] CO2 [Moles/Vol] 23.0 mmol/L 21.0-32.0 [facility] Globulin (S) [Mass/Vol] 3.9 g/dL 2.2-4.2 [facility] Urea nitrogen/Creatinine [Mass ratio] 12.5 mg/mg 06-16 [facility] Laboratory - Hematology and Cell countsOrdered By: So Donaldson on 05-25-2023 Erythrocyte distribution width (RBC) [Entitic vol] 43.8 fL 35.1-43.9 [facility] Erythrocyte distribution width (RBC) [Ratio] 13.3 % 11.6-14.6 [facility] Immature granulocytes/100 WBC (Bld) 0.400 % 0.0-0.9 [facility] Comment on above: IG% - Immature Granu locytes (promyelocytes, myelocytes and metamyelocytes) > 1% indicates that a LEFT SHIFT is Present. MCH (RBC) [Entitic mass] 31.5 pg 27.0-32.0 [facility] Nucleated RBC/100 WBC (Bld) [Ratio] 0 % 0-5 [facility] Laboratory - Hematology and Cell countsOrdered By: Maureen Campbell on 05-25-2023 Erythrocyte distribution width (RBC) [Entitic vol] 44.4 fL 35.1-43.9 [facility] Erythrocyte distribution width (RBC) [Ratio] 13.5 % 11.6-14.6 [facility] Immature granulocytes/100 WBC (Bld) 1.000 % 0.0-0.9 [facility] Comment on above: IG% - Immature Granu locytes (promyelocytes, myelocytes and metamyelocytes) > 1% indicates that a LEFT SHIFT is Present. MCH (RBC) [Entitic mass] 30.7 pg 27.0-32.0 [facility] Nucleated RBC/100 WBC (Bld) [Ratio] 0 % 0-5 [facility] MCHC Auto (RBC) [Mass/Vol]Or dered By: So Donaldson on 05-25-2023 MCHC (RBC) [Mass/Vol] 35.4 g/dL - [facility] MCHC Auto (RBC) [Mass/Vol]Or dered By: Maureen Campbell on 05-25-2023 MCHC (RBC) [Mass/Vol] 34.1 g/dL -36 [facility] Mucus LM Ql (Urine sed)Order ed By: So Donaldson on 05-25-2023 Mucus Ql (Urine sed) 0 SEEN /hpf [facility] Nitrite Test strip Ql (U)Ord ered By: So Donaldson on 05-25-2023 Nitrite Ql (U) Negative Negative [facility] No Panel InformationOrdered By: So Donaldson on 05-25-2023 Estimated Creatinine Clearance Calc 29.49 ml/min [facility] Estimated GFR (MDRD) Amer 31 mL/min >60 [facility] Comment on above: GFR Calc Estimated GFR (MDRD) Non-Af Amer 26 mL/min >60 [facility] Comment on above: Non- GFR Calc No Panel InformationOrdered By: Maureen Campbell on 05-25-2023 Estimated Creatinine Clearance Calc 27.51 ml/min [facility] Estimated GFR (MDRD) Amer 28 mL/min >60 [facility] Comment on above: GFR Calc Estimated GFR (MDRD) Non-Af Amer 24 mL/min >60 [facility] Comment on above: Non- GFR Calc Platelets bldOrdered By: Ludmila Donaldson on 05-25-2023 Platelets (Bld) [#/Vol] 135 10*3/uL 150-450 [facility] Platelets bldOrdered By: Georgina Campbell on 05-25-2023 Platelets (Bld) [#/Vol] 153 10*3/uL 150-450 [facility] Protein Test strip Ql (U)Ord ered By: So Donaldson on 05-25-2023 Protein Ql (U) 500 mg/dl Negative [facility] Serum or plasma albumin abhi urement (mass/volume)Ordered By: Maureen Campbell on 05-25-2023 Albumin [Mass/Vol] 2.7 g/dL 3.2-5.0 [facility] Serum or plasma albumin/glob ulin mass ratioOrdered By: Maureen Campbell on 05-25-2023 Albumin/Globulin [Mass ratio] 0.7 {ratio} 0.9-2.4 [facility] Serum or plasma calcium abhi urement (mass/volume)Ordered By: So Donaldson on 05-25-2023 Calcium [Mass/Vol] 7.5 mg/dL 8.5-10.1 [facility] Serum or plasma calcium abhi urement (mass/volume)Ordered By: Maureen Campbell on 05-25-2023 Calcium [Mass/Vol] 7.8 mg/dL 8.5-10.1 [facility] Serum or plasma creatinine m easurement (mass/volume)Ordered By: So Donaldson on 05-25-2023 Creatinine [Mass/Vol] 2.77 mg/dL 0.70-1.30 [facility] Comment on above: The validity of the calculated GFR & GFRAA in patients over 70 years has not been determined. Clinical correlation is essential. Serum or plasma creatinine m easurement (mass/volume)Ordered By: Maureen Campbell on 05-25-2023 Creatinine [Mass/Vol] 2.97 mg/dL 0.70-1.30 [facility] Comment on above: The validity of the calculated GFR & GFRAA in patients over 70 years has not been determined. Clinical correlation is essential. Serum or plasma urea nitroge n measurement (mass/volume)Ordered By: So Donaldson on 05-25-2023 Urea nitrogen [Mass/Vol] 37 mg/dL 03-14 [facility] Serum or plasma urea nitroge n measurement (mass/volume)Ordered By: Maureen Campbell on 05-25-2023 Urea nitrogen [Mass/Vol] 37 mg/dL 03-14 [facility] Squamous epithelial cells de tection in urine sediment by light microscopyOrdered By: So Donaldson on 05-25-2023 Epithelial cells.squamous LM Ql (Urine sed) 0 SEEN /hpf 0-5 [facility] Thin prep Papanicolaou smear with manual screeningOrdered By: So Donaldson on 05-25-2023 Thin prep Papanicolaou smear with manual screening 6 5-15 [facility] Thin prep Papanicolaou smear with manual screeningOrdered By: Maureen Campbell on 05-25-2023 Thin prep Papanicolaou smear with manual screening 9 U/L 15-37 [facility] Thin prep Papanicolaou smear with manual screening 6 5-15 [facility] Urine blood detectionOrdered By: So Donaldson on 05-25-2023 RBC Ql (U) 25 /ul Negative [facility] RBC Ql (U) 0 SEEN /hpf 0-5 [facility] Urine clarityOrdered By: Ludmila Donaldson on 05-25-2023 Clarity (U) Clear Clear [facility] Urine color determinationOrd ered By: So Donaldson on 05-25-2023 Color (U) Yellow Yellow [facility] Urine glucose detectionOrder ed By: So Donaldson on 05-25-2023 Glucose Ql (U) 1000 mg/dl Normal [facility] Urine leukocyte esterase det ection by dipstickOrdered By: So Donaldson on 05-25-2023 Leukocyte esterase Test strip Ql (U) Negative Negative [facility] Urine pHOrdered By: So Donaldson on 05-25-2023 pH (U) 6.0 [pH] 5.0 - 8.0 [facility] Urine sediment bacteria coun t by microscopy (number/high power field)Ordered By: So Donaldson on 05-25-2023 Bacteria LM.HPF (Urine sed) [#/Area] 0 /[HPF] None Seen [facility] Urine specific gravity measu rementOrdered By: So Donaldson on 05-25-2023 Specific gravity (U) [Rel density] 1.015 1.002-1.030 [facility] Urobilinogen Auto test strip Ql (U)Ordered By: So Donaldson on 05-25-2023 Urobilinogen Ql (U) Normal mg/dl Normal [facility] Iron measurement (mass/mass) Ordered By: Maureen Campbell on 05-11-2023 Iron (Unsp spec) [Mass/Mass] 85 ug/dL 65-175 [facility] No Panel InformationOrdered By: Maureen Campbell on 05-11-2023 Total Iron Binding Capacity 269 ug/dL 250-450 [facility] Serum or plasma ferritin ngozi surement (mass/volume)Ordered By: Maureen Campbell on 05-11-2023 Ferritin [Mass/Vol] 70 ng/mL 26-[address] [facility] Serum or plasma iron saturat ion measurement (mass fraction)Ordered By: Maureen Campbell on 05-11-2023 Iron saturation [Mass fraction] 31.6 % 15.0-55.0 [facility] Laboratory - Hematology and Cell countson 05-03-2023 HbA1c (Bld) [Mass fraction] 7.2 % 4.2-6.3 [facility] Basophil percentageOrdered B y: Jamaal Rm on 03-24-2023 Basophil percentage 3.9 mg/dL 2.5-4.[address] [facility] Chloride [Moles/Vol] 106 mmol/L 98-107 [facility] Glucose [Mass/Vol] 213 mg/dL 74-106 [facility] Comment on above: Glucose result great er than or equal to 200 mg/dLsuggests DIABETES MELLITUS per A.D.A. criteria. Potassium [Moles/Vol] 5.0 mmol/L 3.5-5.1 [facility] Sodium [Moles/Vol] 135 mmol/L 136-145 [facility] WBC (Bld) [#/Vol] 5.0 10*3/uL 4.4-11.0 [facility] Blood erythrocytes count (nu mber/volume)Ordered By: Jamaal Rm on 03-24-2023 RBC (Bld) [#/Vol] 3.11 10*6/uL 4.6-6.[address] [facility] Blood hemoglobin measurement (mass/volume)Ordered By: Jamaal Rm on 03-24-2023 Hemoglobin (Bld) [Mass/Vol] 9.2 g/dL 13.0-16.5 [facility] Blood platelet mean volumeOr dered By: Jamaal Rm on 03-24-2023 Platelet mean volume (Bld) [Entitic vol] 10.4 fL 6.2-12.0 [facility] Determination of erythrocyte mean corpuscular volume (MCV)Ordered By: Jamaal Rm on 03-24-2023 MCV (RBC) [Entitic vol] 89.7 fL 80-94 [facility] Hematocrit Auto (Bld) [Volum e fraction]Ordered By: Jamaal Rm on 03-24-2023 Hematocrit (Bld) [Volume fraction] 27.9 % 40-54 [facility] Laboratory - Chemistry and C hemistry - challengeOrdered By: Jamaal Rm on 03-24-2023 CO2 [Moles/Vol] 23.0 mmol/L 21.0-32.0 [facility] Urea nitrogen/Creatinine [Mass ratio] 12.3 mg/mg 10-20 [facility] Laboratory - Hematology and Cell countsOrdered By: Jamaal Rm on 03-24-2023 Erythrocyte distribution width (RBC) [Entitic vol] 43.5 fL 35.1-43.9 [facility] Erythrocyte distribution width (RBC) [Ratio] 13.3 % 11.6-14.6 [facility] MCH (RBC) [Entitic mass] 29.6 pg 27.0-32.0 [facility] MCHC Auto (RBC) [Mass/Vol]Or dered By: Jamaal Rm on 03-24-2023 MCHC (RBC) [Mass/Vol] 33.0 g/dL 32-36 [facility] No Panel InformationOrdered By: Jamaal Rm on 03-24-2023 Estimated GFR (MDRD) Amer 34 mL/min >60 [facility] Comment on above: GFR Calc Estimated GFR (MDRD) Non-Af Amer 28 mL/min >60 [facility] Comment on above: Non- GFR Calc Parathyroid Hormone (Intact) 131.0 pg/mL 18.4-80.1 [facility] Vitamin D 25-Hydroxy 11.8 ng/mL [facility] Comment on above: Vitamin D 25(OH) Sta tus Range Deficiency <20 ng/mL (50nmol/L) Insufficiency 20 - 30 ng/mL (50 - 75 nmol/L) Sufficiency 30 - 100 ng/mL (75 - 250 nmol/L) Toxicity >100 ng/mL (>250 nmol/L) Platelets bldOrdered By: Edwin Rm on 03-24-2023 Platelets (Bld) [#/Vol] 193 10*3/uL 150-450 [facility] Serum or plasma albumin abhi urement (mass/volume)Ordered By: Jamaal Rm on 03-24-2023 Albumin [Mass/Vol] 2.8 g/dL 3.2-5.0 [facility] Serum or plasma calcium abhi urement (mass/volume)Ordered By: Jamaal Rm on 03-24-2023 Calcium [Mass/Vol] 8.7 mg/dL 8.5-10.1 [facility] Serum or plasma creatinine m easurement (mass/volume)Ordered By: Jamaal Rm on 03-24-2023 Creatinine [Mass/Vol] 2.52 mg/dL 0.70-1.30 [facility] Comment on above: The validity of the calculated GFR & GFRAA in patients over 70 years has not been determined. Clinical correlation is essential. Serum or plasma urea nitroge n measurement (mass/volume)Ordered By: Jamaal Rm on 03-24-2023 Urea nitrogen [Mass/Vol] 31 mg/dL 7-18 [facility] Urine creatinine measurement (mass/volume)Ordered By: Jamaal Rm on 03-24-2023 Creatinine (U) [Mass/Vol] 119.00 mg/dL NO RANGE EST. [facility] Urine protein measurement (m ass/volume)Ordered By: Jamaal Rm on 03-24-2023 Protein (U) [Mass/Vol] 1186.0 mg/dL 0.0-11.8 [facility] Urine protein/creatinine mas s ratioOrdered By: Jamaal Rm on 03-24-2023 Protein/Creatinine (U) [Mass ratio] 9966 mg/g CRE 0-200 [facility] Absolute lymphocyte countOrd ered By: Maureen Campbell on 03-16-2023 Lymphocytes Auto (Unsp spec) [#/Vol] 2.01 10*3/uL 0.83-4.51 [facility] Basophil percentageOrdered B y: Maureen Campbell on 03-16-2023 Basophils/100 WBC (Bld) 0.7 % 0-1 [facility] Bilirubin [Mass/Vol] 0.20 mg/dL 0.20-1.00 [facility] Comment on above: For patients on eltr ombopag therapy, use of Dimension [place] TBIL is not recommended. Chloride [Moles/Vol] 107 mmol/L 98-107 [facility] Eosinophils/100 WBC (Bld) 1.2 % 0-5 [facility] Glucose [Mass/Vol] 112 mg/dL 74-106 [facility] Comment on above: Fasting Glucose resu lt from 100 to 125 mg/dL suggests IMPAIRED HOMEOSTASIS per A.D.A. criteria. Neutrophils (Bld) [#/Vol] 3.5 10*3/uL 2.0-7.7 [facility] Neutrophils/100 WBC (Bld) 58.0 % 47-70 [facility] Potassium [Moles/Vol] 4.9 mmol/L 3.5-5.1 [facility] Protein [Mass/Vol] 6.9 g/dL 6.4-8.2 [facility] Sodium [Moles/Vol] 137 mmol/L 136-145 [facility] WBC (Bld) [#/Vol] 6.0 10*3/uL 4.4-11.0 [facility] Blood erythrocytes count (nu mber/volume)Ordered By: Maureen Campbell on 03-16-2023 RBC (Bld) [#/Vol] 3.49 10*6/uL 4.6-6.[address] [facility] Blood hemoglobin measurement (mass/volume)Ordered By: Maureen Campbell on 03-16-2023 Hemoglobin (Bld) [Mass/Vol] 10.2 g/dL 13.0-16.5 [facility] Blood lymphocytes/100 leukoc ytesOrdered By: Maureen Campbell on 03-16-2023 Lymphocytes/100 WBC (Bld) 33.6 % 19-41 [facility] Blood monocytes/100 leukocyt esOrdered By: Maureen Campbell on 03-16-2023 Monocytes/100 WBC (Bld) 5.7 % 0-10 [facility] Blood platelet mean volumeOr dered By: Maureen Campbell on 03-16-2023 Platelet mean volume (Bld) [Entitic vol] 10.0 fL 6.2-12.0 [facility] Determination of erythrocyte mean corpuscular volume (MCV)Ordered By: Maureen Campbell on 03-16-2023 MCV (RBC) [Entitic vol] 88.5 fL 80-94 [facility] Hematocrit Auto (Bld) [Volum e fraction]Ordered By: Maureen Campbell on 03-16-2023 Hematocrit (Bld) [Volume fraction] 30.9 % 40-54 [facility] Iron measurement (mass/mass) Ordered By: Maureen Campbell on 03-16-2023 Iron (Unsp spec) [Mass/Mass] 122 ug/dL 65-175 [facility] Laboratory - Chemistry and C hemistry - challengeOrdered By: Maureen Campbell on 03-16-2023 ALP [Catalytic activity/Vol] 62 U/L 45-117 [facility] ALT [Catalytic activity/Vol] 20 U/L 16-61 [facility] CO2 [Moles/Vol] 22.0 mmol/L 21.0-32.0 [facility] Globulin (S) [Mass/Vol] 4.0 g/dL 2.2-4.2 [facility] Urea nitrogen/Creatinine [Mass ratio] 15.5 mg/mg 10-20 [facility] Laboratory - Hematology and Cell countsOrdered By: Maureen Campbell on 03-16-2023 Erythrocyte distribution width (RBC) [Entitic vol] 44.9 fL 35.1-43.9 [facility] Erythrocyte distribution width (RBC) [Ratio] 14.0 % 11.6-14.6 [facility] Immature granulocytes/100 WBC (Bld) 0.800 % 0.0-0.9 [facility] Comment on above: IG% - Immature Granu locytes (promyelocytes, myelocytes and metamyelocytes) > 1% indicates that a LEFT SHIFT is Present. MCH (RBC) [Entitic mass] 29.2 pg 27.0-32.0 [facility] Nucleated RBC/100 WBC (Bld) [Ratio] 0 % 0-5 [facility] MCHC Auto (RBC) [Mass/Vol]Or dered By: Maureen Campbell on 03-16-2023 MCHC (RBC) [Mass/Vol] 33.0 g/dL 32-36 [facility] No Panel InformationOrdered By: Maureen Campbell on 03-16-2023 Estimated Creatinine Clearance Calc 32.42 ml/min [facility] Estimated GFR (MDRD) Amer 34 mL/min >60 [facility] Comment on above: GFR Calc Estimated GFR (MDRD) Non-Af Amer 28 mL/min >60 [facility] Comment on above: Non- GFR Calc Total Iron Binding Capacity 305 ug/dL 250-450 [facility] Platelets bldOrdered By: Georgina Campbell on 03-16-2023 Platelets (Bld) [#/Vol] 212 10*3/uL 150-450 [facility] Serum or plasma albumin abhi urement (mass/volume)Ordered By: Maureen Campbell on 03-16-2023 Albumin [Mass/Vol] 2.9 g/dL 3.2-5.0 [facility] Serum or plasma albumin/glob ulin mass ratioOrdered By: Maureen Campbell on 03-16-2023 Albumin/Globulin [Mass ratio] 0.7 {ratio} 0.9-2.4 [facility] Serum or plasma calcium abhi urement (mass/volume)Ordered By: Maureen Campbell on 03-16-2023 Calcium [Mass/Vol] 8.7 mg/dL 8.5-10.1 [facility] Serum or plasma carcinoembry onic antigen measurement (mass/volume)Ordered By: Maureen Campbell on 03-16-2023 Carcinoembryonic Ag [Mass/Vol] 1.4 ng/mL 0.0-4.7 [facility] Comment on above: Nonsmokers <3.9 Smok ers <5.6[employer] Electrochemiluminescence Immunoassay(ECLIA)Values obtained with different assay methods or kitscannot be used interchangeably. Results cannot beinterpreted as absolute evidence of the presence orabsence of malignant disease.Performed at: [facility] [address] [id number] Director: Bradley Peña PhD, Phone: [phone] Serum or plasma creatinine m easurement (mass/volume)Ordered By: Maureen Campbell on 03-16-2023 Creatinine [Mass/Vol] 2.52 mg/dL 0.70-1.30 [facility] Comment on above: The validity of the calculated GFR & GFRAA in patients over 70 years has not been determined. Clinical correlation is essential. Serum or plasma ferritin ngozi surement (mass/volume)Ordered By: Maureen Campbell on 03-16-2023 Ferritin [Mass/Vol] 99 ng/mL 26-[address] [facility] Serum or plasma iron saturat ion measurement (mass fraction)Ordered By: Maureen Campbell on 03-16-2023 Iron saturation [Mass fraction] 40.0 % 15.0-55.0 [facility] Serum or plasma urea nitroge n measurement (mass/volume)Ordered By: Maureen Campbell on 03-16-2023 Urea nitrogen [Mass/Vol] 39 mg/dL 7-18 [facility] Thin prep Papanicolaou smear with manual screeningOrdered By: Maureen Campbell on 03-16-2023 Thin prep Papanicolaou smear with manual screening 9 U/L 15-37 [facility] Thin prep Papanicolaou smear with manual screening 8 5-15 [facility] Basophil percentageOrdered B y: Jimmie Ibarra on 01-31-2023 LDH [Catalytic activity/Vol] 189 U/L 87-241 [facility] Comment on above: Slight Hemolysis, Re sult may be falsely increased. Whole blood hemoglobin A1c/t otal hemoglobin ratio (mass fraction)Ordered By: Grisel Timmons on 01-31-2023 HbA1c (Bld) [Mass fraction] 7.0 % High 3.8-5.6 [facility] Comment on above: Normal < 5.7 % Predi abetic 5.7 - 6.4 % Diabetic >or= 6.5 % Please note range changes. CBC W Auto Differential pane l (Bld)on 12-01-2022 Basophils (Bld) [#/Vol] <0.11 k/uL [facility] Basophils/100 WBC (Bld) 0.4 % [facility] Differential cell count method Nom (Bld) Auto [facility] Eosinophils (Bld) [#/Vol] 0.07 10*3/uL <0.46 k/uL [facility] Eosinophils/100 WBC (Bld) 1.3 % [facility] Erythrocyte distribution width (RBC) [Ratio] 15.1 % High 11.5 - 15.0 % [facility] Hematocrit (Bld) [Volume fraction] 26.2 % Low 39.0 - 51.0 % [facility] Hemoglobin (Bld) [Mass/Vol] 8.7 g/dL Low 13.0 - 17.0 g/dL [facility] Immature granulocytes (Bld) [#/Vol] 0.04 10*3/uL <0.10 k/uL [facility] Immature granulocytes/100 WBC (Bld) 0.7 % [facility] Lymphocytes (Bld) [#/Vol] 1.57 10*3/uL 1.00 - 4.00 k/uL [facility] Lymphocytes/100 WBC (Bld) 28.7 % [facility] MCH (RBC) [Entitic mass] 30.3 pg 26.0 - 34.0 pg [facility] MCHC (RBC) [Mass/Vol] 33.2 g/dL 30.5 - 36.0 g/dL [facility] MCV (RBC) [Entitic vol] 91.3 fL 80.0 - 100.0 fL [facility] Monocytes (Bld) [#/Vol] 0.39 10*3/uL <0.87 k/uL [facility] Monocytes/100 WBC (Bld) 7.1 % [facility] Neutrophils (Bld) [#/Vol] 3.38 10*3/uL 1.45 - 7.50 k/uL [facility] Neutrophils/100 WBC (Bld) 61.8 % [facility] Nucleated RBC (Bld) [#/Vol] <0.01 k/uL [facility] Nucleated RBC/100 WBC (Bld) [Ratio] 0.0 /100 WBC [facility] Platelet mean volume (Bld) [Entitic vol] 10.7 fL 9.0 - 12.7 fL [facility] Platelets (Bld) [#/Vol] 240 10*3/uL 150 - 400 k/uL [facility] RBC (Bld) [#/Vol] 2.87 10*6/uL Low 4.20 - 6.0 0 m/uL [facility] WBC (Bld) [#/Vol] 5.47 10*3/uL 3.70 - 11. 00 k/uL [facility] T3 FREE BLDon 12-01-2022 Free T3 [Mass/Vol] 2.5 pg/mL 2.3 - 4.1 pg/mL [facility] T4 FREE/FREE THYROXon 2022 Free T4 [Mass/Vol] 0.8 ng/dL Low 0.9 - 1.7 ng/dL [facility] Absolute lymphocyte countOrd ered By: Dr. Renae on 11-26-2022 Lymphocytes Auto (Unsp spec) [#/Vol] 1.60 10*3/uL 0.83-4.51 [facility] Basophil percentageOrdered B y: Dr. Renae on 11-26-2022 LDH [Catalytic activity/Vol] 159 U/L 87-241 [facility] Basophils/100 WBC (Bld) 0.4 % 0-1 [facility] Bilirubin [Mass/Vol] 0.20 mg/dL 0.20-1.00 [facility] Comment on above: For patients on eltr ombopag therapy, use of Dimension [place] TBIL is not recommended. Chloride [Moles/Vol] 108 mmol/L 98-107 [facility] Eosinophils/100 WBC (Bld) 1.5 % 0-5 [facility] Glucose [Mass/Vol] 228 mg/dL 74-106 [facility] Comment on above: Glucose result great er than or equal to 200 mg/dLsuggests DIABETES MELLITUS per A.D.A. criteria. Neutrophils (Bld) [#/Vol] 3.2 10*3/uL 2.0-7.7 [facility] Neutrophils/100 WBC (Bld) 60.6 % 47-70 [facility] Potassium [Moles/Vol] 4.5 mmol/L 3.5-5.1 [facility] Protein [Mass/Vol] 6.1 g/dL 6.4-8.2 [facility] Sodium [Moles/Vol] 135 mmol/L 136-145 [facility] WBC (Bld) [#/Vol] 5.2 10*3/uL 4.4-11.0 [facility] Blood erythrocytes count (nu mber/volume)Ordered By: Dr. Renae on 11-26-2022 RBC (Bld) [#/Vol] 2.59 10*6/uL 4.6-6.[address] [facility] Blood hemoglobin measurement (mass/volume)Ordered By: Dr. Renae on 11-26-2022 Hemoglobin (Bld) [Mass/Vol] 7.8 g/dL 13.0-16.5 [facility] Blood lymphocytes/100 leukoc ytesOrdered By: Dr. Renae on 11-26-2022 Lymphocytes/100 WBC (Bld) 30.7 % 19-41 [facility] Blood monocytes/100 leukocyt esOrdered By: Dr. Renae on 11-26-2022 Monocytes/100 WBC (Bld) 6.0 % 0-10 [facility] Blood platelet mean volumeOr dered By: Dr. Renae on 11-26-2022 Platelet mean volume (Bld) [Entitic vol] 10.7 fL 6.2-12.0 [facility] Determination of erythrocyte mean corpuscular volume (MCV)Ordered By: Dr. Renae on 11-26-2022 MCV (RBC) [Entitic vol] 91.5 fL 80-94 [facility] Glucose Glucometer (dC) [M ass/Vol]Ordered By: Dr. Renae on 11-26-2022 Glucose [Mass/Vol] 272 mg/dL 74-106 [facility] Comment on above: MANAGEMENT OF PATIEN T CARE PER NURSING PROTOCOL Hematocrit Auto (Bld) [Volum e fraction]Ordered By: Dr. Renae on 11-26-2022 Hematocrit (Bld) [Volume fraction] 23.7 % 40-54 [facility] Hemoglobin in reticulocytes (mass per reticulocyte)Ordered By: Dr. Renae on 11-26-2022 Hemoglobin (Reticulocytes) [Entitic mass] 33.6 pg 30-35 [facility] Iron measurement (mass/mass) Ordered By: Dr. Renae on 11-26-2022 Iron (Unsp spec) [Mass/Mass] 60 ug/dL 65-175 [facility] Laboratory - Chemistry and C hemistry - challengeOrdered By: Dr. Renae on 11-26-2022 ALP [Catalytic activity/Vol] 64 U/L 45-117 [facility] ALT [Catalytic activity/Vol] 16 U/L 16-61 [facility] CO2 [Moles/Vol] 21.0 mmol/L 21.0-32.0 [facility] Globulin (S) [Mass/Vol] 3.4 g/dL 2.2-4.2 [facility] Urea nitrogen/Creatinine [Mass ratio] 16.1 mg/mg 10-20 [facility] Laboratory - Hematology and Cell countsOrdered By: Dr. Renae on 11-26-2022 Erythrocyte distribution width (RBC) [Entitic vol] 46.5 fL 35.1-43.9 [facility] Erythrocyte distribution width (RBC) [Ratio] 14.6 % 11.6-14.6 [facility] Immature granulocytes/100 WBC (Bld) 0.800 % 0.0-0.9 [facility] Comment on above: IG% - Immature Granu locytes (promyelocytes, myelocytes and metamyelocytes) > 1% indicates that a LEFT SHIFT is Present. MCH (RBC) [Entitic mass] 30.1 pg 27.0-32.0 [facility] Nucleated RBC/100 WBC (Bld) [Ratio] 0 % 0-5 [facility] MCHC Auto (RBC) [Mass/Vol]Or dered By: Dr. Renae on 11-26-2022 MCHC (RBC) [Mass/Vol] 32.9 g/dL 32-36 [facility] No Panel InformationOrdered By: Dr. Renae on 11-26-2022 Immature Reticulocyte Fraction 32.00 % 3.00-15.90 [facility] Reticulocyte Count 4.38 % 0.5-1.5 [facility] Total Iron Binding Capacity 296 ug/dL 250-450 [facility] Estimated Creatinine Clearance Calc 43.92 ml/min [facility] Estimated GFR (MDRD) Amer 49 mL/min >60 [facility] Comment on above: GFR Calc Estimated GFR (MDRD) Non-Af Amer 40 mL/min >60 [facility] Comment on above: Non- GFR Calc Platelets bldOrdered By: Dr. Renae on 11-26-2022 Platelets (Bld) [#/Vol] 159 10*3/uL 150-450 [facility] Serum or plasma albumin abhi urement (mass/volume)Ordered By: Dr. Renae on 11-26-2022 Albumin [Mass/Vol] 2.7 g/dL 3.2-5.0 [facility] Serum or plasma albumin/glob ulin mass ratioOrdered By: Dr. Renae on 11-26-2022 Albumin/Globulin [Mass ratio] 0.8 {ratio} 0.9-2.4 [facility] Serum or plasma calcium abhi urement (mass/volume)Ordered By: Dr. Renae on 11-26-2022 Calcium [Mass/Vol] 8.5 mg/dL 8.5-10.1 [facility] Serum or plasma creatinine m easurement (mass/volume)Ordered By: Dr. Renae on 11-26-2022 Creatinine [Mass/Vol] 1.86 mg/dL 0.70-1.30 [facility] Comment on above: The validity of the calculated GFR & GFRAA in patients over 70 years has not been determined. Clinical correlation is essential. Serum or plasma ferritin ngozi surement (mass/volume)Ordered By: Dr. Renae on 11-26-2022 Ferritin [Mass/Vol] 46 ng/mL 26-[address] [facility] Serum or plasma urea nitroge n measurement (mass/volume)Ordered By: Dr. Renae on 11-26-2022 Urea nitrogen [Mass/Vol] 30 mg/dL 7-18 [facility] Thin prep Papanicolaou smear with manual screeningOrdered By: Dr. Renae on 11-26-2022 Thin prep Papanicolaou smear with manual screening 13 U/L 15-37 [facility] Thin prep Papanicolaou smear with manual screening 6 5-15 [facility] No Panel InformationOrdered By: Dr. Renae on 11-25-2022 Carbamazepine (Tegretol) Level 7.3 ug/mL 4.0-12.0 [facility] Free Triiodothyronine (T3) pg/dL 1.9 pg/mL 2.18-3.98 [facility] Serum or plasma cortisol ngozi surement (mass/volume)Ordered By: Dr. Renae on 11-25-2022 Cortisol [Mass/Vol] 5.60 ug/dL 3.44-22.[address] [facility] Comment on above: Adult (AM) 5.27 - 22 .45 ug/dL Adult (PM) 3.44 - 16.76 ug/dLPlease note revised CORTISOL reference range effective 2019. Laboratory - Chemistry and C hemistry - challengeOrdered By: Dr. Renae on 11-24-2022 Free T4 [Mass/Vol] 0.57 ng/dL 0.76-1.46 [facility] No Panel InformationOrdered By: Dr. Renae on 11-24-2022 Thyroid Stimulating Hormone (TSH) 0.35 uIU/mL 0.358-3.74 [facility] Absolute lymphocyte countOrd ered By: Dr. Hogan on 11-23-2022 Lymphocytes Auto (Unsp spec) [#/Vol] 1.19 10*3/uL 0.83-4.51 [facility] Basophil percentageOrdered B y: Dr. Hogan on 11-23-2022 Basophils/100 WBC (Bld) 0.4 % 0-1 [facility] Chloride [Moles/Vol] 108 mmol/L 98-107 [facility] Eosinophils/100 WBC (Bld) 1.5 % 0-5 [facility] Glucose [Mass/Vol] 336 mg/dL 74-106 [facility] Comment on above: Glucose result great er than or equal to 200 mg/dLsuggests DIABETES MELLITUS per A.D.A. criteria. Neutrophils (Bld) [#/Vol] 3.0 10*3/uL 2.0-7.7 [facility] Neutrophils/100 WBC (Bld) 65.2 % 47-70 [facility] Potassium [Moles/Vol] 5.1 mmol/L 3.5-5.1 [facility] Sodium [Moles/Vol] 134 mmol/L 136-145 [facility] WBC (Bld) [#/Vol] 4.6 10*3/uL 4.4-11.0 [facility] Blood erythrocytes count (nu mber/volume)Ordered By: Dr. Hogan on 11-23-2022 RBC (Bld) [#/Vol] 2.07 10*6/uL 4.6-6.[address] [facility] Blood hemoglobin measurement (mass/volume)Ordered By: Dr. Hogan on 11-23-2022 Hemoglobin (Bld) [Mass/Vol] 6.3 g/dL 13.0-16.5 [facility] Blood lymphocytes/100 leukoc ytesOrdered By: Dr. Hogan on 11-23-2022 Lymphocytes/100 WBC (Bld) 25.6 % 19-41 [facility] Blood monocytes/100 leukocyt esOrdered By: Dr. Hogan on 11-23-2022 Monocytes/100 WBC (Bld) 6.0 % 0-10 [facility] Blood platelet mean volumeOr dered By: Dr. Hogan on 11-23-2022 Platelet mean volume (Bld) [Entitic vol] 10.8 fL 6.2-12.0 [facility] Determination of erythrocyte mean corpuscular volume (MCV)Ordered By: Dr. Hogan on 11-23-2022 MCV (RBC) [Entitic vol] 91.8 fL 80-94 [facility] Hematocrit Auto (Bld) [Volum e fraction]Ordered By: Dr. Hogan on 11-23-2022 Hematocrit (Bld) [Volume fraction] 19.0 % 40-54 [facility] Laboratory - Chemistry and C hemistry - challengeOrdered By: Dr. Hogan on 11-23-2022 CO2 [Moles/Vol] 21.0 mmol/L 21.0-32.0 [facility] Urea nitrogen/Creatinine [Mass ratio] 19.4 mg/mg 10-20 [facility] Laboratory - Hematology and Cell countsOrdered By: Dr. Hogan on 11-23-2022 Erythrocyte distribution width (RBC) [Entitic vol] 43.8 fL 35.1-43.9 [facility] Erythrocyte distribution width (RBC) [Ratio] 13.6 % 11.6-14.6 [facility] Immature granulocytes/100 WBC (Bld) 1.300 % 0.0-0.9 [facility] Comment on above: IG% - Immature Granu locytes (promyelocytes, myelocytes and metamyelocytes) > 1% indicates that a LEFT SHIFT is Present. MCH (RBC) [Entitic mass] 30.4 pg 27.0-32.0 [facility] Nucleated RBC/100 WBC (Bld) [Ratio] 0 % 0-5 [facility] Lower GI hemoglobin IA Ql (S tl)Ordered By: Dr. Renae on 11-23-2022 Stool Occult Blood (YENNI) Positive [facility] MCHC Auto (RBC) [Mass/Vol]Or dered By: Dr. Hogan on 11-23-2022 MCHC (RBC) [Mass/Vol] 33.2 g/dL 32-36 [facility] No Panel InformationOrdered By: Dr. Hogan on 11-23-2022 Estimated Creatinine Clearance Calc 35.99 ml/min [facility] Estimated GFR (MDRD) Amer 39 mL/min >60 [facility] Comment on above: GFR Calc Estimated GFR (MDRD) Non-Af Amer 32 mL/min >60 [facility] Comment on above: Non- GFR Calc Troponin I High Sensitivity 13 pg/mL 3.0-78.0 [facility] Comment on above: Please Note: New [place] t Units and Gender Specific Reference Ranges. For more information see Policy Stat Procedure [place] High Sensitivity Troponin (TNIH) and attachments. Platelets bldOrdered By: Dr. Hogan on 11-23-2022 Platelets (Bld) [#/Vol] 154 10*3/uL 150-450 [facility] Serum or plasma calcium abhi urement (mass/volume)Ordered By: Dr. Hogan on 11-23-2022 Calcium [Mass/Vol] 7.3 mg/dL 8.5-10.1 [facility] Serum or plasma creatinine m easurement (mass/volume)Ordered By: Dr. Hogan on 11-23-2022 Creatinine [Mass/Vol] 2.27 mg/dL 0.70-1.30 [facility] Comment on above: The validity of the calculated GFR & GFRAA in patients over 70 years has not been determined. Clinical correlation is essential. Serum or plasma urea nitroge n measurement (mass/volume)Ordered By: Dr. Hogan on 11-23-2022 Urea nitrogen [Mass/Vol] 44 mg/dL 7-18 [facility] Thin prep Papanicolaou smear with manual screeningOrdered By: Dr. Hogan on 11-23-2022 Thin prep Papanicolaou smear with manual screening 5 5-15 [facility] Absolute lymphocyte countOrd ered By: Dr. Ibarra on 11-22-2022 Lymphocytes Auto (Unsp spec) [#/Vol] 1.65 10*3/uL 0.83-4.51 [facility] Basophil percentageOrdered B y: Dr. Ibarra on 11-22-2022 Basophils/100 WBC (Bld) 0.5 % 0-1 [facility] Eosinophils/100 WBC (Bld) 1.9 % 0-5 [facility] Neutrophils (Bld) [#/Vol] 2.2 10*3/uL 2.0-7.7 [facility] Neutrophils/100 WBC (Bld) 50.8 % 47-70 [facility] WBC (Bld) [#/Vol] 4.3 10*3/uL 4.4-11.0 [facility] Blood erythrocytes count (nu mber/volume)Ordered By: Dr. Ibarra on 11-22-2022 RBC (Bld) [#/Vol] 2.55 10*6/uL 4.6-6.[address] [facility] Blood hemoglobin measurement (mass/volume)Ordered By: Dr. Ibarra on 11-22-2022 Hemoglobin (Bld) [Mass/Vol] 7.7 g/dL 13.0-16.5 [facility] Blood lymphocytes/100 leukoc ytesOrdered By: Dr. Ibarra on 11-22-2022 Lymphocytes/100 WBC (Bld) 38.6 % 19-41 [facility] Blood monocytes/100 leukocyt esOrdered By: Dr. Ibarra on 11-22-2022 Monocytes/100 WBC (Bld) 6.8 % 0-10 [facility] Blood platelet mean volumeOr dered By: Dr. Ibarra on 11-22-2022 Platelet mean volume (Bld) [Entitic vol] 10.2 fL 6.2-12.0 [facility] Determination of erythrocyte mean corpuscular volume (MCV)Ordered By: Dr. Ibarra on 11-22-2022 MCV (RBC) [Entitic vol] 89.8 fL 80-94 [facility] Hematocrit Auto (Bld) [Volum e fraction]Ordered By: Dr. Ibarra on 11-22-2022 Hematocrit (Bld) [Volume fraction] 22.9 % 40-54 [facility] Laboratory - Hematology and Cell countsOrdered By: Dr. Ibarra on 11-22-2022 Erythrocyte distribution width (RBC) [Entitic vol] 42.5 fL 35.1-43.9 [facility] Erythrocyte distribution width (RBC) [Ratio] 13.2 % 11.6-14.6 [facility] Immature granulocytes/100 WBC (Bld) 1.400 % 0.0-0.9 [facility] Comment on above: IG% - Immature Granu locytes (promyelocytes, myelocytes and metamyelocytes) > 1% indicates that a LEFT SHIFT is Present. MCH (RBC) [Entitic mass] 30.2 pg 27.0-32.0 [facility] Nucleated RBC/100 WBC (Bld) [Ratio] 0 % 0-5 [facility] MCHC Auto (RBC) [Mass/Vol]Or dered By: Dr. Ibarra on 11-22-2022 MCHC (RBC) [Mass/Vol] 33.6 g/dL 32-36 [facility] Platelets bldOrdered By: Dr. Ibarra on 11-22-2022 Platelets (Bld) [#/Vol] 142 10*3/uL 150-450 [facility] No Panel InformationOrdered By: Dr. Paulson on 11-02-2022 Carbamazepine (Tegretol) Level 8.5 ug/mL 4.0-12.0 [facility] Absolute lymphocyte countOrd ered By: Dr. Ibarra on 10-27-2022 Lymphocytes Auto (Unsp spec) [#/Vol] 1.81 10*3/uL 0.83-4.51 [facility] Basophil percentageOrdered B y: Dr. Ibarra on 10-27-2022 Basophils/100 WBC (Bld) 0.4 % 0-1 [facility] Bilirubin [Mass/Vol] 0.30 mg/dL 0.20-1.00 [facility] Comment on above: For patients on eltr ombopag therapy, use of Dimension [place] TBIL is not recommended. Chloride [Moles/Vol] 102 mmol/L 98-107 [facility] Eosinophils/100 WBC (Bld) 1.2 % 0-5 [facility] Glucose [Mass/Vol] 309 mg/dL 74-106 [facility] Comment on above: Glucose result great er than or equal to 200 mg/dLsuggests DIABETES MELLITUS per A.D.A. criteria. LDH [Catalytic activity/Vol] 166 U/L 87-241 [facility] Neutrophils (Bld) [#/Vol] 3.4 10*3/uL 2.0-7.7 [facility] Neutrophils/100 WBC (Bld) 60.7 % 47-70 [facility] Potassium [Moles/Vol] 5.0 mmol/L 3.5-5.1 [facility] Protein [Mass/Vol] 6.9 g/dL 6.4-8.2 [facility] Sodium [Moles/Vol] 132 mmol/L 136-145 [facility] WBC (Bld) [#/Vol] 5.7 10*3/uL 4.4-11.0 [facility] Blood erythrocytes count (nu mber/volume)Ordered By: Dr. Ibarra on 10-27-2022 RBC (Bld) [#/Vol] 2.95 10*6/uL 4.6-6.[address] [facility] Blood hemoglobin measurement (mass/volume)Ordered By: Dr. Ibarra on 10-27-2022 Hemoglobin (Bld) [Mass/Vol] 8.9 g/dL 13.0-16.5 [facility] Blood lymphocytes/100 leukoc ytesOrdered By: Dr. Ibarra on 10-27-2022 Lymphocytes/100 WBC (Bld) 32.0 % 19-41 [facility] Blood monocytes/100 leukocyt esOrdered By: Dr. Ibarra on 10-27-2022 Monocytes/100 WBC (Bld) 5.0 % 0-10 [facility] Blood platelet mean volumeOr dered By: Dr. Ibarra on 10-27-2022 Platelet mean volume (Bld) [Entitic vol] 9.5 fL 6.2-12.0 [facility] Determination of erythrocyte mean corpuscular volume (MCV)Ordered By: Dr. Ibarra on 10-27-2022 MCV (RBC) [Entitic vol] 87.8 fL 80-94 [facility] Erythrocyte sedimentation ra teOrdered By: Dr. Ibarra on 10-27-2022 ESR (Bld) [Velocity] 24 mm/h High 0-20 [facility] Hematocrit Auto (Bld) [Volum e fraction]Ordered By: Dr. Ibarra on 10-27-2022 Hematocrit (Bld) [Volume fraction] 25.9 % 40-54 [facility] Hemoglobin in reticulocytes (mass per reticulocyte)Ordered By: Dr. Ibarra on 10-27-2022 Hemoglobin (Reticulocytes) [Entitic mass] 33.9 pg 30-35 [facility] Interpretation of serum or p lasma protein pattern by immunofixation (narrative resultOrdered By: Dr. Ibarra on 10-27-2022 Protein Fractions Immunofixation Rocco [Interp] See comment [facility] Comment on above: NOT OBSERVED Iron measurement (mass/mass) Ordered By: Dr. Ibarra on 10-27-2022 Iron (Unsp spec) [Mass/Mass] 81 ug/dL 65-175 [facility] Laboratory - Chemistry and C hemistry - challengeOrdered By: Dr. Ibarra on 10-27-2022 ALP [Catalytic activity/Vol] 59 U/L 45-117 [facility] ALT [Catalytic activity/Vol] 17 U/L 16-61 [facility] CO2 [Moles/Vol] 23.0 mmol/L 21.0-32.0 [facility] Cobalamin (Vitamin B12) [Mass/Vol] 432 pg/mL 211-911 [facility] Urea nitrogen/Creatinine [Mass ratio] 15.4 mg/mg 10-20 [facility] Laboratory - Hematology and Cell countsOrdered By: Dr. Ibarra on 10-27-2022 Erythrocyte distribution width (RBC) [Entitic vol] 41.5 fL 35.1-43.9 [facility] Erythrocyte distribution width (RBC) [Ratio] 13.1 % 11.6-14.6 [facility] Immature granulocytes/100 WBC (Bld) 0.700 % 0.0-0.9 [facility] Comment on above: IG% - Immature Granu locytes (promyelocytes, myelocytes and metamyelocytes) > 1% indicates that a LEFT SHIFT is Present. MCH (RBC) [Entitic mass] 30.2 pg 27.0-32.0 [facility] Nucleated RBC/100 WBC (Bld) [Ratio] 0 % 0-5 [facility] MCHC Auto (RBC) [Mass/Vol]Or dered By: Dr. Ibarra on 03-02-2023 MCHC (RBC) [Mass/Vol] 34.4 g/dL 32-36 [facility] No Panel InformationOrdered By: Dr. Ibarra on 10-27-2022 Addendum Document Comment . [facility] Comment on above: Protein electrophore sis scan will follow via computer,mail, or auto machinist delivery. Estimated Creatinine Clearance Calc 33.67 ml/min [facility] Estimated GFR (MDRD) Amer 33 mL/min >60 [facility] Comment on above: GFR Calc Estimated GFR (MDRD) Non-Af Amer 28 mL/min >60 [facility] Comment on above: Non- GFR Calc Free Lambda Light Chains, Quant 31.2 mg/L High 5.7-26.3 [facility] Immature Reticulocyte Fraction 7.90 % 3.00-15.90 [facility] Reticulocyte Count 1.45 % 0.5-1.5 [facility] Total Iron Binding Capacity 287 ug/dL 250-450 [facility] Platelets bldOrdered By: Dr. Ibarra on 10-27-2022 Platelets (Bld) [#/Vol] 190 10*3/uL 150-450 [facility] Serum [id number] measu rement by electrophoresisOrdered By: Dr. Ibarra on 10-27-2022 Alpha 1 globulin Elph [Mass/Vol] 0.2 g/dL 0.0-0.4 [facility] Alpha 1 globulin Elph [Mass/Vol] 1.1 g/dL High 0.4-1.0 [facility] Serum globulin measurement ( mass/volume)Ordered By: Dr. Ibarra on 10-27-2022 Globulin (S) [Mass/Vol] 3.1 g/dL 2.2-3.9 [facility] Serum immunoglobulin kappa l ight chains/immunoglobulin lambda light chains mass ratioOrdered By: Dr. Ibarra on 10-27-2022 Immunoglobulin light chains.kappa/Immunoglob ulin light chains.lambda (S) [Mass ratio] 2.23 High 0.26-1.65 [facility] Serum or plasma IgA measurem ent (mass/volume)Ordered By: Dr. Ibarra on 10-27-2022 IgA [Mass/Vol] 135 mg/dL 90-386 [facility] Serum or plasma IgG measurem ent (mass/volume)Ordered By: Dr. Ibarra on 10-27-2022 IgG [Mass/Vol] 918 mg/dL 603-1613 [facility] Serum or plasma IgM measurem ent (mass/volume)Ordered By: Dr. Ibarra on 10-27-2022 IgM [Mass/Vol] 84 mg/dL 20-172 [facility] Serum or plasma albumin abhi urement (mass/volume)Ordered By: Dr. Ibarra on 10-27-2022 Albumin [Mass/Vol] 3.2 g/dL 2.9-4.4 [facility] Serum or plasma albumin/glob ulin mass ratioOrdered By: Dr. Ibarra on 10-27-2022 Albumin/Globulin [Mass ratio] 0.9 {ratio} 0.9-2.4 [facility] Serum or plasma beta globuli n measurement by electrophoresis (mass/volume)Ordered By: Dr. Ibarra on 10-27-2022 Beta globulin Elph [Mass/Vol] 0.9 g/dL 0.7-1.3 [facility] Serum or plasma calcium abhi urement (mass/volume)Ordered By: Dr. Ibarra on 10-27-2022 Calcium [Mass/Vol] 8.4 mg/dL 8.5-10.1 [facility] Serum or plasma carcinoembry onic antigen measurement (mass/volume)Ordered By: Dr. Ibarra on 10-27-2022 Carcinoembryonic Ag [Mass/Vol] 1.5 ng/mL 0.0-4.7 [facility] Comment on above: Nonsmokers <3.9 Smok ers <5.6[employer] Electrochemiluminescence Immunoassay(ECLIA)Values obtained with different assay methods or kitscannot be used interchangeably. Results cannot beinterpreted as absolute evidence of the presence orabsence of malignant disease. Serum or plasma creatinine m easurement (mass/volume)Ordered By: Dr. Ibarra on 10-27-2022 Creatinine [Mass/Vol] 2.59 mg/dL 0.70-1.30 [facility] Comment on above: The validity of the calculated GFR & GFRAA in patients over 70 years has not been determined. Clinical correlation is essential. Serum or plasma erythropoiet in (EPO) measurement (units/volume)Ordered By: Dr. Ibarra on 10-27-2022 Erythropoietin (EPO) Qn 8.1 mIU/mL 2.6-18.5 [facility] Comment on above: triptap el DxI 800 Immunoassay SystemValues obtained with different assay methods or kits cannotbe used interchangeably. Results cannot be interpreted asabsolute evidence of the presence or absence of malignantdisease.Performed at: [address] [id number] Director: Bradley Peña PhD, Phone: [phone] Serum or plasma ferritin ngozi surement (mass/volume)Ordered By: Dr. Ibarra on 10-27-2022 Ferritin [Mass/Vol] 122 ng/mL 26-[address] [facility] Serum or plasma folate measu rement (mass/volume)Ordered By: Dr. Ibarra on 10-27-2022 Folate [Mass/Vol] 15.00 ng/mL 3.1-55.4 [facility] Serum or plasma gamma globul in measurement by electrophoresis (mass/volume)Ordered By: Dr. Ibarra on 10-27-2022 Gamma globulin Elph [Mass/Vol] 0.9 g/dL 0.4-1.8 [facility] Serum or plasma immunoelectr ophoresis interpretation (nominal result)Ordered By: Dr. Ibarra on 10-27-2022 Interpretation IEP [Interp] Comment . [facility] Comment on above: No monoclonality det ected. Serum or plasma immunoglobul in kappa light chains measurement (mass/volume)Ordered By: Dr. Ibarra on 10-27-2022 Immunoglobulin light chains.kappa [Mass/Vol] 69.5 mg/L High 3.3-19.4 [facility] Serum or plasma iron saturat ion measurement (mass fraction)Ordered By: Dr. Ibarra on 10-27-2022 Iron saturation [Mass fraction] 28.2 % 15.0-55.0 [facility] Serum or plasma urea nitroge n measurement (mass/volume)Ordered By: Dr. Ibarra on 10-27-2022 Urea nitrogen [Mass/Vol] 40 mg/dL 7-18 [facility] Thin prep Papanicolaou smear with manual screeningOrdered By: Dr. Ibarra on 10-27-2022 Thin prep Papanicolaou smear with manual screening 13 U/L 15-37 [facility] Thin prep Papanicolaou smear with manual screening 7 5-15 [facility] Thin prep Papanicolaou smear with manual screening 1.1 0.7-1.7 [facility] Total protein bloodOrdered B y: Dr. Ibarra on 10-27-2022 Protein [Mass/Vol] 6.3 g/dL 6.0-8.5 [facility] Basophil percentageOrdered B y: Juana Harvey on 09-29-2022 Basophil percentage 4.3 mg/dL 2.5-4.[address] [facility] Chloride [Moles/Vol] 107 mmol/L 98-107 [facility] Glucose [Mass/Vol] 224 mg/dL 74-106 [facility] Comment on above: Glucose result great er than or equal to 200 mg/dLsuggests DIABETES MELLITUS per A.D.A. criteria. Potassium [Moles/Vol] 4.9 mmol/L 3.5-5.1 [facility] Sodium [Moles/Vol] 138 mmol/L 136-145 [facility] WBC (Bld) [#/Vol] 4.4 10*3/uL 4.4-11.0 [facility] Blood erythrocytes count (nu mber/volume)Ordered By: Juana Harvey on 09-29-2022 RBC (Bld) [#/Vol] 2.84 10*6/uL 4.6-6.[address] [facility] Blood hemoglobin measurement (mass/volume)Ordered By: Juana Harvey on 09-29-2022 Hemoglobin (Bld) [Mass/Vol] 8.8 g/dL 13.0-16.5 [facility] Blood platelet mean volumeOr dered By: Juana Harvey on 09-29-2022 Platelet mean volume (Bld) [Entitic vol] 10.0 fL 6.2-12.0 [facility] Determination of erythrocyte mean corpuscular volume (MCV)Ordered By: Juana Harvey on 09-29-2022 MCV (RBC) [Entitic vol] 91.9 fL 80-94 [facility] Hematocrit Auto (Bld) [Volum e fraction]Ordered By: Juana Harvey on 09-29-2022 Hematocrit (Bld) [Volume fraction] 26.1 % 40-54 [facility] Laboratory - Chemistry and C hemistry - challengeOrdered By: Juana Harvey on 09-29-2022 CO2 [Moles/Vol] 25.0 mmol/L 21.0-32.0 [facility] Urea nitrogen/Creatinine [Mass ratio] 13.3 mg/mg 10-20 [facility] Laboratory - Hematology and Cell countsOrdered By: Juana Harvey on 09-29-2022 Erythrocyte distribution width (RBC) [Entitic vol] 41.8 fL 35.1-43.9 [facility] Erythrocyte distribution width (RBC) [Ratio] 12.6 % 11.6-14.6 [facility] MCH (RBC) [Entitic mass] 31.0 pg 27.0-32.0 [facility] MCHC Auto (RBC) [Mass/Vol]Or dered By: Juana Harvey on 09-29-2022 MCHC (RBC) [Mass/Vol] 33.7 g/dL 32-36 [facility] No Panel InformationOrdered By: Juana Harvey on 09-29-2022 Estimated GFR (MDRD) Amer 41 mL/min >60 [facility] Comment on above: GFR Calc Estimated GFR (MDRD) Non-Af Amer 34 mL/min >60 [facility] Comment on above: Non- GFR Calc Parathyroid Hormone (Intact) 118.7 pg/mL 18.4-80.1 [facility] Vitamin D 25-Hydroxy 10.3 ng/mL [facility] Comment on above: Vitamin D 25(OH) Sta tus Range Deficiency <20 ng/mL (50nmol/L) Insufficiency 20 - 30 ng/mL (50 - 75 nmol/L) Sufficiency 30 - 100 ng/mL (75 - 250 nmol/L) Toxicity >100 ng/mL (>250 nmol/L) Platelets bldOrdered By: Josh Harvey on 09-29-2022 Platelets (Bld) [#/Vol] 133 10*3/uL 150-450 [facility] Serum or plasma albumin abhi urement (mass/volume)Ordered By: Juana Harvey on 09-29-2022 Albumin [Mass/Vol] 2.9 g/dL 3.2-5.0 [facility] Serum or plasma calcium abhi urement (mass/volume)Ordered By: Juana Harvey on 09-29-2022 Calcium [Mass/Vol] 8.8 mg/dL 8.5-10.1 [facility] Serum or plasma creatinine m easurement (mass/volume)Ordered By: Juana Harvey on 09-29-2022 Creatinine [Mass/Vol] 2.18 mg/dL 0.70-1.30 [facility] Comment on above: The validity of the calculated GFR & GFRAA in patients over 70 years has not been determined. Clinical correlation is essential. Serum or plasma urea nitroge n measurement (mass/volume)Ordered By: Juana Harvey on 09-29-2022 Urea nitrogen [Mass/Vol] 29 mg/dL 7-18 [facility] Urine creatinine measurement (mass/volume)Ordered By: Juana Harvey on 09-29-2022 Creatinine (U) [Mass/Vol] 43.90 mg/dL NO RANGE EST. [facility] Urine protein measurement (m ass/volume)Ordered By: Juana Harvey on 09-29-2022 Protein (U) [Mass/Vol] 388.9 mg/dL 0.0-11.8 [facility] Urine protein/creatinine mas s ratioOrdered By: Juana Harvey on 09-29-2022 Protein/Creatinine (U) [Mass ratio] 8859 mg/g CRE 0-200 [facility] GLUCOSE, BLOOD (POC)on 09-20 Glucose [Mass/Vol] 264 mg/dL Abnormal 74 - 99 mg/dL [facility] HEMOGLOBIN A1C (POC)on 09-20 HbA1c (Bld) [Mass fraction] 10.2 % Abnormal 4.2 - 5.6 % [facility] HEMOGLOBIN A1C (POC)on 06-17 HbA1c (Bld) [Mass fraction] 9.2 % Abnormal 4.2 - 5.6 % [facility] Basophil percentageon 2021 Basophil percentage 3.6 mg/dL 2.5-4.[address] [facility] Work Phone: Comment on above: Slight Lipemia, Resu lt may be falsely increased. Chloride [Moles/Vol] 101 mmol/L 98-107 [facility] Work Phone: Glucose [Mass/Vol] 461 mg/dL 74-106 [facility] Work Phone: Comment on above: Slight Lipemia, Resu lt may be falsely increased.Glucose result greater than or equal to 200 mg/dLsuggests DIABETES MELLITUS per A.D.A. criteria. Potassium [Moles/Vol] 5.0 mmol/L 3.5-5.1 [facility] Work Phone: Comment on above: Moderate Hemolysis, Result may be falsely increased.-Slight Lipemia, Result may be falsely increased. Sodium [Moles/Vol] 133 mmol/L 136-145 [facility] Work Phone: WBC (Bld) [#/Vol] 5.7 10*3/uL 4.4-11.0 [facility] Work Phone: Blood erythrocytes count (nu mber/volume)on 05-19-2022 RBC (Bld) [#/Vol] 2.97 10*6/uL 4.6-6.[address] [facility] Work Phone: Blood hemoglobin measurement (mass/volume)on 05-19-2022 Hemoglobin (Bld) [Mass/Vol] 9.4 g/dL 13.0-16.5 [facility] Work Phone: Blood platelet mean volumeon 05-19-2022 Platelet mean volume (Bld) [Entitic vol] 10.7 fL 6.2-12.0 [facility] Work Phone: Determination of erythrocyte mean corpuscular volume (MCV)on 05-19-2022 MCV (RBC) [Entitic vol] 90.2 fL 80-94 [facility] Work Phone: Hematocrit Auto (Bld) [Volum e fraction]on 05-19-2022 Hematocrit (Bld) [Volume fraction] 26.8 % 40-54 [facility] Work Phone: Laboratory - Chemistry and C hemistry - challengeon 05-19-2022 CO2 [Moles/Vol] 23.0 mmol/L 21.0-32.0 [facility] Work Phone: Comment on above: Slight Lipemia, Resu lt may be falsely increased. Urea nitrogen/Creatinine [Mass ratio] 19.2 mg/mg 10-20 [facility] Work Phone: Laboratory - Hematology and Cell countson 05-19-2022 Erythrocyte distribution width (RBC) [Entitic vol] 41.3 fL 35.1-43.9 [facility] Work Phone: Erythrocyte distribution width (RBC) [Ratio] 12.7 % 11.6-14.6 [facility] Work Phone: MCH (RBC) [Entitic mass] 31.6 pg 27.0-32.0 [facility] Work Phone: MCHC Auto (RBC) [Mass/Vol]on 05-19-2022 MCHC (RBC) [Mass/Vol] 35.1 g/dL 32-36 [facility] Work Phone: No Panel Informationon 05-19 Estimated GFR (MDRD) Amer 40 mL/min >60 [facility] Work Phone: Comment on above: GFR Calc Estimated GFR (MDRD) Non-Af Amer 33 mL/min >60 [facility] Work Phone: Comment on above: Non- GFR Calc Parathyroid Hormone (Intact) 96.0 pg/mL 18.4-80.1 [facility] Work Phone: Vitamin D 25-Hydroxy 9.9 ng/mL [facility] Work Phone: Comment on above: Vitamin D 25(OH) Sta tus Range Deficiency <20 ng/mL (50nmol/L) Insufficiency 20 - 30 ng/mL (50 - 75 nmol/L) Sufficiency 30 - 100 ng/mL (75 - 250 nmol/L) Toxicity >100 ng/mL (>250 nmol/L) Platelets bldon 05-19-2022 Platelets (Bld) [#/Vol] 188 10*3/uL 150-450 [facility] Work Phone: Serum or plasma albumin abhi urement (mass/volume)on 05-19-2022 Albumin [Mass/Vol] 3.2 g/dL 3.2-5.0 [facility] Work Phone: Serum or plasma calcium abhi urement (mass/volume)on 05-19-2022 Calcium [Mass/Vol] 8.8 mg/dL 8.5-10.1 [facility] Work Phone: Comment on above: Slight Lipemia, Resu lt may be falsely increased. Serum or plasma creatinine m easurement (mass/volume)on 05-19-2022 Creatinine [Mass/Vol] 2.24 mg/dL 0.70-1.30 [facility] Work Phone: Comment on above: Slight Lipemia, Resu lt may be falsely increased.The validity of the calculated GFR & GFRAA in patients over 70 years has not been determined. Clinical correlation is essential. Serum or plasma urea nitroge n measurement (mass/volume)on 05-19-2022 Urea nitrogen [Mass/Vol] 43 mg/dL 7-18 [facility] Work Phone: Urine creatinine measurement (mass/volume)on 05-19-2022 Creatinine (U) [Mass/Vol] 35.10 mg/dL NO RANGE EST. [facility] Work Phone: Urine protein measurement (m ass/volume)on 05-19-2022 Protein (U) [Mass/Vol] 199.7 mg/dL 0.0-11.8 [facility] Work Phone: Urine protein/creatinine mas s ratioon 05-19-2022 Protein/Creatinine (U) [Mass ratio] 5689 mg/g CRE 0-200 [facility] Work Phone: Absolute lymphocyte countOrd ered By: Maureen Campbell on 05-03-2022 Lymphocytes Auto (Unsp spec) [#/Vol] 1.61 10*3/uL 0.83-4.51 [facility] Basophil percentageOrdered B y: Maureen Campbell on 05-03-2022 Basophils/100 WBC (Bld) 0.5 % 0-1 [facility] Bilirubin [Mass/Vol] 0.30 mg/dL 0.20-1.00 [facility] Comment on above: Slight Lipemia, Resu lt may be falsely increased. For patients on eltrombopag therapy, use of Dimension [place] TBIL is not recommended. Chloride [Moles/Vol] 100 mmol/L 98-107 [facility] Eosinophils/100 WBC (Bld) 1.1 % 0-5 [facility] Glucose [Mass/Vol] 357 mg/dL 74-106 [facility] Comment on above: Slight Lipemia, Resu lt may be falsely increased.Glucose result greater than or equal to 200 mg/dLsuggests DIABETES MELLITUS per A.D.A. criteria. Neutrophils (Bld) [#/Vol] 3.4 10*3/uL 2.0-7.7 [facility] Neutrophils/100 WBC (Bld) 61.7 % 47-70 [facility] Potassium [Moles/Vol] 4.9 mmol/L 3.5-5.1 [facility] Comment on above: Moderate Hemolysis, Result may be falsely increased.-Slight Lipemia, Result may be falsely increased. Protein [Mass/Vol] 7.0 g/dL 6.4-8.2 [facility] Comment on above: Slight Lipemia, Resu lt may be falsely increased. Sodium [Moles/Vol] 131 mmol/L 136-145 [facility] WBC (Bld) [#/Vol] 5.5 10*3/uL 4.4-11.0 [facility] Blood erythrocytes count (nu mber/volume)Ordered By: Maureen Campbell on 05-03-2022 RBC (Bld) [#/Vol] 3.10 10*6/uL 4.6-6.[address] [facility] Blood hemoglobin measurement (mass/volume)Ordered By: Maureen Campbell on 05-03-2022 Hemoglobin (Bld) [Mass/Vol] 9.6 g/dL 13.0-16.5 [facility] Blood lymphocytes/100 leukoc ytesOrdered By: Maureen Campbell on 05-03-2022 Lymphocytes/100 WBC (Bld) 29.4 % 19-41 [facility] Blood monocytes/100 leukocyt esOrdered By: [facility] Shannan on 05-03-2022 Monocytes/100 WBC (Bld) 6.2 % 0-10 [facility] Blood platelet mean volumeOr dered By: Maureen Campbell on 05-03-2022 Platelet mean volume (Bld) [Entitic vol] 10.0 fL 6.2-12.0 [facility] Determination of erythrocyte mean corpuscular volume (MCV)Ordered By: Maureen Campbell on 05-03-2022 MCV (RBC) [Entitic vol] 87.1 fL 80-94 [facility] Hematocrit Auto (Bld) [Volum e fraction]Ordered By: Maureen Campbell on 05-03-2022 Hematocrit (Bld) [Volume fraction] 27.0 % 40-54 [facility] Laboratory - Chemistry and C hemistry - challengeOrdered By: [facility] on 05-03-2022 ALP [Catalytic activity/Vol] 67 U/L 45-117 [facility] ALT [Catalytic activity/Vol] 23 U/L 16-61 [facility] Comment on above: Slight Lipemia, Resu lt may be falsely increased. CO2 [Moles/Vol] 25.0 mmol/L 21.0-32.0 [facility] Comment on above: Slight Lipemia, Resu lt may be falsely increased. Globulin (S) [Mass/Vol] 4.0 g/dL 2.2-4.2 [facility] Urea nitrogen/Creatinine [Mass ratio] 16.6 mg/mg 10-20 [facility] Laboratory - Hematology and Cell countsOrdered By: Maureen Campbell on 05-03-2022 Erythrocyte distribution width (RBC) [Entitic vol] 40.6 fL 35.1-43.9 [facility] Erythrocyte distribution width (RBC) [Ratio] 12.9 % 11.6-14.6 [facility] Immature granulocytes/100 WBC (Bld) 1.100 % 0.0-0.9 [facility] Comment on above: IG% - Immature Granu locytes (promyelocytes, myelocytes and metamyelocytes) > 1% indicates that a LEFT SHIFT is Present. MCH (RBC) [Entitic mass] 31.0 pg 27.0-32.0 [facility] Nucleated RBC/100 WBC (Bld) [Ratio] 0 % 0-5 [facility] MCHC Auto (RBC) [Mass/Vol]Or dered By: Maureen Campbell on 05-03-2022 MCHC (RBC) [Mass/Vol] 35.6 g/dL 32-36 [facility] No Panel InformationOrdered By: Maureen Campbell on 05-03-2022 Estimated Creatinine Clearance Calc 56.18 ml/min [facility] Estimated GFR (MDRD) Amer 60 mL/min >60 [facility] Comment on above: GFR Calc Estimated GFR (MDRD) Non-Af Amer 49 mL/min >60 [facility] Comment on above: Non- GFR Calc Platelets bldOrdered By: Georgina Campbell on 05-03-2022 Platelets (Bld) [#/Vol] 165 10*3/uL 150-450 [facility] Serum or plasma albumin abhi urement (mass/volume)Ordered By: Maureen Campbell on 05-03-2022 Albumin [Mass/Vol] 3.0 g/dL 3.2-5.0 [facility] Serum or plasma albumin/glob ulin mass ratioOrdered By: Maureen Campbell on 05-03-2022 Albumin/Globulin [Mass ratio] 0.8 {ratio} 0.9-2.4 [facility] Serum or plasma calcium abhi urement (mass/volume)Ordered By: Maureen Campbell on 05-03-2022 Calcium [Mass/Vol] 8.3 mg/dL 8.5-10.1 [facility] Comment on above: Slight Lipemia, Resu lt may be falsely increased. Serum or plasma carcinoembry onic antigen measurement (mass/volume)Ordered By: Maureen Campbell on 05-03-2022 Carcinoembryonic Ag [Mass/Vol] 1.7 ng/mL 0.0-4.7 [facility] Comment on above: Nonsmokers <3.9 Smok ers <5.6[employer] Electrochemiluminescence Immunoassay(ECLIA)Values obtained with different assay methods or kitscannot be used interchangeably. Results cannot beinterpreted as absolute evidence of the presence orabsence of malignant disease.Performed at: - [facility] [id number] Director: Bradley Peña PhD, Phone: [phone] Serum or plasma creatinine m easurement (mass/volume)Ordered By: Maureen Campbell on 05-03-2022 Creatinine [Mass/Vol] 1.57 mg/dL 0.70-1.30 [facility] Comment on above: Slight Lipemia, Resu lt may be falsely increased.The validity of the calculated GFR & GFRAA in patients over 70 years has not been determined. Clinical correlation is essential. Serum or plasma urea nitroge n measurement (mass/volume)Ordered By: Maureen Campbell on 05-03-2022 Urea nitrogen [Mass/Vol] 26 mg/dL 03-14 [facility] Comment on above: Slight Lipemia, Resu lt may be falsely increased. Thin prep Papanicolaou smear with manual screeningOrdered By: Maureen Campbell on 05-03-2022 Thin prep Papanicolaou smear with manual screening 14 U/L [facility] Comment on above: Moderate Hemolysis, Result may be falsely increased.-Slight Lipemia, Result may be falsely increased. Thin prep Papanicolaou smear with manual screening 6 01-09 [facility] XR TOE AP/LAT/OBL LEFTon [facility] CBC W Auto Differential pane l (Bld)on 02-04-2022 Basophils (Bld) [#/Vol] 0.05 10*3/uL Normal <0.11 [facility] Comment on above: Order Comment: Speci men Type: BLOOD SPECIMEN Ordering Facility: [facility] Address: [address] [place] [address] Performed By: #### 5 7021-8 #### [facility] CLIA [id number] [address] [place] [id number] [place] Basophils/100 WBC (Bld) 0.8 % Normal [facility] Comment on above: Order Comment: Speci men Type: BLOOD SPECIMEN Ordering Facility: [facility] Address: [address] [place] [address] Performed By: #### 5 7021-8 #### [facility] CLIA [id number] [address] [place] Differential cell count method Nom (Bld) Auto Normal [facility] Comment on above: Order Comment: Speci men Type: BLOOD SPECIMEN Ordering Facility: [facility] Address: [address] [place] [address] Performed By: #### 5 7021-8 #### [facility] CLIA [id number] [address] Eosinophils (Bld) [#/Vol] 0.06 10*3/uL Normal <0.46 [facility] Comment on above: Order Comment: Speci men Type: BLOOD SPECIMEN Ordering Facility: [facility] Address: [address] [place] [address] Performed By: #### 5 7021-8 #### [facility] CLIA [id number] [address] Eosinophils/100 WBC (Bld) 1.0 % Normal [facility] Comment on above: Order Comment: Speci men Type: BLOOD SPECIMEN Ordering Facility: [facility] Address: [address] [place] [address] Performed By: #### 5 7021-8 #### [facility] CLIA [id number] [address] Erythrocyte distribution width (RBC) [Ratio] 12.2 % Normal 11.5-15.0 [facility] Comment on above: Order Comment: Speci men Type: BLOOD SPECIMEN Ordering Facility: [facility] Address: [address] [place] [address] Performed By: #### 5 7021-8 #### [facility] CLIA [id number] [address] [place] Hematocrit (Bld) [Volume fraction] 25.1 % Low 39.0-51.0 [facility] Comment on above: Order Comment: Speci men Type: BLOOD SPECIMEN Ordering Facility: [facility] Address: [address] [place] [address] Performed By: #### 5 7021-8 #### [facility] CLIA [id number] [address] Hemoglobin (Bld) [Mass/Vol] 8.5 g/dL Low 13.0-17.0 [facility] Comment on above: Order Comment: Speci men Type: BLOOD SPECIMEN Ordering Facility: [facility] Address: [address] [place] [address] Performed By: #### 5 7021-8 #### [facility] CLIA [id number] [address] IMMATURE GRAN % 1.0 % Normal [facility] Comment on above: Order Comment: Speci men Type: BLOOD SPECIMEN Ordering Facility: [facility] Address: [address] [place] [address] Performed By: #### 5 7021-8 #### [facility] CLIA [id number] [address] IMMATURE GRAN ABS 0.06 k/uL Normal <0.10 [facility] Comment on above: Order Comment: Speci men Type: BLOOD SPECIMEN Ordering Facility: [facility] Address: [address] [place] [address] Performed By: #### 5 7021-8 #### [facility] CLIA [id number] [address] Lymphocytes (Bld) [#/Vol] 1.67 10*3/uL Normal 1.00-4.00 [facility] Comment on above: Order Comment: Speci men Type: BLOOD SPECIMEN Ordering Facility: [facility] Address: [address] [place] [address] Performed By: #### 5 7021-8 #### [facility] CLIA [id number] [address] Lymphocytes/100 WBC (Bld) 26.8 % Normal [facility] Comment on above: Order Comment: Speci men Type: BLOOD SPECIMEN Ordering Facility: [facility] Address: [address] [place] [address] Performed By: #### 5 7021-8 #### [facility] CLIA [id number] [address] [place] MCH (RBC) [Entitic mass] 28.9 pg Normal 26.0-34.0 [facility] Comment on above: Order Comment: Speci men Type: BLOOD SPECIMEN Ordering Facility: [facility] Address: [address] [place] [address] Performed By: #### 5 7021-8 #### [facility] CLIA [id number] [address] [place] MCHC (RBC) [Mass/Vol] 33.9 g/dL Normal 30.5-36.0 [facility] Comment on above: Order Comment: Speci men Type: BLOOD SPECIMEN Ordering Facility: [facility] Address: [address] [place] [address] Performed By: #### 5 7021-8 #### [facility] CLIA [id number] [address] [place] MCV (RBC) [Entitic vol] 85.4 fL Normal 80.0-100.0 [facility] Comment on above: Order Comment: Speci men Type: BLOOD SPECIMEN Ordering Facility: [facility] Address: [address] [place] [address] Performed By: #### 5 7021-8 #### [facility] CLIA [id number] [address] [place] Monocytes (Bld) [#/Vol] 0.34 10*3/uL Normal <0.87 [facility] Comment on above: Order Comment: Speci men Type: BLOOD SPECIMEN Ordering Facility: [facility] Address: [address] [place] [address] Performed By: #### 5 7021-8 #### [facility] CLIA [id number] [address] [place] [address] [place] Monocytes/100 WBC (Bld) 5.4 % Normal [facility] Comment on above: Order Comment: Speci men Type: BLOOD SPECIMEN Ordering Facility: [facility] Address: [address] [address] Performed By: #### 5 7021-8 #### [facility] CLIA [id number] [address] [place] [address] [place] Neutrophils (Bld) [#/Vol] 4.06 10*3/uL Normal 1.45-7.50 [facility] Comment on above: Order Comment: Speci men Type: BLOOD SPECIMEN Ordering Facility: [facility] Address: [address] [place] [address] Performed By: #### 5 7021-8 #### [facility] CLIA [id number] [address] [place] Neutrophils/100 WBC (Bld) 65.0 % Normal [facility] Comment on above: Order Comment: Speci men Type: BLOOD SPECIMEN Ordering Facility: [facility] Address: [address] [place] [address] Performed By: #### 5 7021-8 #### [facility] CLIA [id number] [address] [place] [address] [place] Nucleated RBC (Bld) [#/Vol] 10*3/uL Normal <0.01 [facility] Comment on above: Order Comment: Speci men Type: BLOOD SPECIMEN Ordering Facility: [facility] Address: [address] [place] [address] Performed By: #### 5 7021-8 #### [facility] CLIA [id number] [address] [place] [address] [place] Nucleated RBC/100 WBC (Bld) [Ratio] 0.0 /100 WBC Normal [facility] Comment on above: Order Comment: Speci men Type: BLOOD SPECIMEN Ordering Facility: [facility] Address: [address] [place] [address] Performed By: #### 5 7021-8 #### [facility] CLIA [id number] [address] [place] Platelet mean volume (Bld) [Entitic vol] 9.8 fL Normal 9.0-12.7 [facility] Comment on above: Order Comment: Speci men Type: BLOOD SPECIMEN Ordering Facility: [facility] Address: [address] [place] [address] Performed By: #### 5 7021-8 #### [facility] CLIA [id number] [address] [place] [address] [place] Platelets (Bld) [#/Vol] 222 10*3/uL Normal 150-400 [facility] Comment on above: Order Comment: Speci men Type: BLOOD SPECIMEN Ordering Facility: [facility] Address: [address] [place] [address] Performed By: #### 5 7021-8 #### [facility] CLIA [id number] [address] [place] RBC (Bld) [#/Vol] 2.94 10*6/uL Low 4.20-6.00 [facility] Comment on above: Order Comment: Speci men Type: BLOOD SPECIMEN Ordering Facility: [facility] Address: [address] [place] [address] Performed By: #### 5 7021-8 #### [facility] CLIA [id number] [address] WBC (Bld) [#/Vol] 6.24 10*3/uL Normal 3.70-11.00 [facility] Comment on above: Order Comment: Speci men Type: BLOOD SPECIMEN Ordering Facility: [facility] Address: [address] [place] [address] Performed By: #### 5 7021-8 #### [facility] CLIA [id number] [address] [place] CT BRAIN WO IVCONon 02-05-[address] BRAIN WO IVCON * * *Final Report* * * DATE OF EXAM: Feb 04 2022 1:12PM [facility] [place] BRAIN WO IVCON / [...] base and imaged soft tissues are unremarkable. Material Handling Warehouse Supervisor (topogram) images: No additional findings. IMPRESSION: 1. No intracranial hemorrhage or other acute intracranial abnormalities 2. Large amount of atrophy for the patient's age Retail Project Merchandiser: [email or web address] Transcribe Date/Time: Feb 04 2022 1:28P Dictated by : BETZAIDA MOODY DO This examination was interpreted and the report reviewed and electronically signed by: BETZAIDA MOODY DO on Feb 04 2022 1:35PM EST [id number] Normal [facility] Comprehensive metabolic 2000 panelon 02-04-2022 Albumin [Mass/Vol] 3.9 g/dL Normal 3.9-4.9 [facility] Comment on above: Order Comment: Pat noriega Type: BLOOD SPECIMEN Ordering Facility: [facility] Address: [address] [place] [address] Performed By: #### 2 4323-8, DILAN #### [facility] CLIA [id number] [address] [place] [address] [place] ALP [Catalytic activity/Vol] 78 U/L Normal 38-113 [facility] Comment on above: Order Comment: Pat noriega Type: BLOOD SPECIMEN Ordering Facility: [facility] Address: [address] [place] [address] Performed By: #### 2 4323-8, DILAN #### [facility] CLIA [id number] [address] ALT [Catalytic activity/Vol] 17 U/L Normal 10-54 [facility] Comment on above: Order Comment: Speci men Type: BLOOD SPECIMEN Ordering Facility: [facility] Address: [address] [place] [address] Performed By: #### 2 4323-8, DILAN #### [facility] CLIA [id number] [address] [place] Anion gap [Moles/Vol] 10 mmol/L Normal 9-18 [facility] Comment on above: Order Comment: Speci men Type: BLOOD SPECIMEN Ordering Facility: [facility] Address: [address] [place] [address] Performed By: #### 2 4323-8, DILAN #### [facility] CLIA [id number] [address] AST [Catalytic activity/Vol] 12 U/L Low 14-40 [facility] Comment on above: Order Comment: Speci men Type: BLOOD SPECIMEN Ordering Facility: [facility] Address: [address] [place] [address] Performed By: #### 2 4323-8, DILAN #### [facility] CLIA [id number] [address] [place] Bilirubin [Mass/Vol] mg/dL Low 0.2-1.3 [facility] Comment on above: Order Comment: Speci men Type: BLOOD SPECIMEN Ordering Facility: [facility] Address: [address] [place] [address] Performed By: #### 2 4323-8, DILAN #### [facility] CLIA [id number] [address] Calcium [Mass/Vol] 8.8 mg/dL Normal 8.5-10.2 [facility] Comment on above: Order Comment: Speci men Type: BLOOD SPECIMEN Ordering Facility: [facility] Address: [address] [address] Performed By: #### 2 4323-8, DILAN #### [facility] CLIA [id number] [address] [place] [address] [place] Chloride [Moles/Vol] 101 mmol/L Normal 97-105 [facility] Comment on above: Order Comment: Speci men Type: BLOOD SPECIMEN Ordering Facility: [facility] Address: [address] [place] [address] Performed By: #### 2 4323-8, DILAN #### [facility] CLIA [id number] [address] [place] [address] [place] CO2 [Moles/Vol] 24 mmol/L Normal 22-30 [facility] Comment on above: Order Comment: Speci men Type: BLOOD SPECIMEN Ordering Facility: [facility] Address: [address] [place] [address] Performed By: #### 2 4323-8, DILAN #### [facility] CLIA [id number] [address] [place] [address] [place] Creatinine [Mass/Vol] 1.67 mg/dL High 0.73-1.22 [facility] Comment on above: Order Comment: Speci men Type: BLOOD SPECIMEN Ordering Facility: [facility] Address: [address] [place] [address] Performed By: #### 2 4323-8, DILAN #### [facility] CLIA [id number] [address] [place] ESTIMATED GLOMERULAR FILTRATION RATE 49 mL/min/1.73m??? Low >=60 [facility] Comment on above: Order Comment: Speci men Type: BLOOD SPECIMEN Ordering Facility: [facility] Address: [address] [place] [address] Result Comment: Venita mated Glomerular Filtration Rate [...] Performed By: #### 2 4323-8, DILAN #### [facility] CLIA [id number] [address] [place] [address] [place] Glucose [Mass/Vol] 253 mg/dL High 74-99 [facility] Comment on above: Order Comment: Pat noriega Type: BLOOD SPECIMEN Ordering Facility: [facility] Address: [address] [place] [address] Result Comment: The [employer] Diabetes Association (ADA) provides guidance for cutoff [...] Standards of Medical Care in Diabetes 2016, Indian Diabetes Association. Diabetes Care. 2016.39(Suppl 1). Performed By: #### 2 4323-8, DILAN #### [facility] CLIA [id number] [address] [place] [address] [place] Potassium [Moles/Vol] 4.4 mmol/L Normal 3.7-5.1 [facility] Comment on above: Order Comment: Pat noriega Type: BLOOD SPECIMEN Ordering Facility: [facility] Address: [address] [place] [address] Performed By: #### 2 4323-8, DILAN #### [facility] CLIA [id number] [address] [place] [address] [place] Protein [Mass/Vol] 7.1 g/dL Normal 6.3-8.0 [facility] Comment on above: Order Comment: Pat noriega Type: BLOOD SPECIMEN Ordering Facility: [facility] Address: [address] [place] [address] Performed By: #### 2 4323-8, DILAN #### [facility] CLIA [id number] [address] Sodium [Moles/Vol] 135 mmol/L Low 136-144 [facility] Comment on above: Order Comment: Speci men Type: BLOOD SPECIMEN Ordering Facility: [facility] Address: [address] [place] [address] Performed By: #### 2 4323-8, DILAN #### [facility] CLIA [id number] [address] Urea nitrogen [Mass/Vol] 29 mg/dL High 9-24 [facility] Comment on above: Order Comment: Speci men Type: BLOOD SPECIMEN Ordering Facility: [facility] Address: [address] [place] [address] Performed By: #### 2 4323-8, DILAN #### [facility] CLIA [id number] [address] ED NOTEon 02-04-2022 ED NOTE HNO ID: [id number] Author: Richie Perez RN Service: ? Author Type: Registered Nurse Type: ED Notes Filed: 02/07/2022 11:16 AM Note Text: Emergency Services: ED Call Back Questionnaire SERVICE DATE: 02/04/2022 Are you feeling better? Yes Any questions about discharge instructions and follow-up care? no SIGNATURE: Richie Perez RN PATIENT NAME: Reginaldo Huffman DATE: February 07, 2022 TIME: 11:15 AM [facility] ED NOTE HNO ID: [id number] Author: Kaden Young RN Service: ? Author Type: Registered Nurse Type: ED Notes Filed: 02/04/2022 2:19 PM Note Text: Pt provided with discharged instructions. Medications gone over and all questions answered. Pt. Assisted to car in wheelchair. [facility] ED NOTE HNO ID: [id number] Author: Savana Dubose RN Service: Nursing Author Type: Registered Nurse Type: ED Notes Filed: 02/04/2022 12:23 PM Note Text: Dr. mendoza at for exam. [facility] ED NOTE HNO ID: [id number] Author: Savana Dubose RN Service: ? 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 from pancreatitis. - [...] There is (more content not included)... Normal [facility] GLUCOSE, BLOOD (POC)on 02-04 Glucose [Mass/Vol] 262 mg/dL Abnormal 74 - 99 mg/dL [facility] HEMOGLOBIN A1C (POC)on 02-04 HbA1c (Bld) [Mass fraction] 8.3 % Abnormal 4.2 - 5.6 % [facility] PT panel Coag (PPP)on 2021 INR Coag (PPP) [Relative time] 1.6 {INR} High 0.9-1.3 [facility] Comment on above: Order Comment: Speci men Type: BLOOD SPECIMEN Ordering Facility: [facility] Address: [address] [place] [address] Result Comment: Tereza min K Antagonist (VKA) Therapeutic Range: INR 2 to 3 (Target INR of 2.5) Note: For patients treated with VKA drugs, such as warfarin, the [employer] 2012 Guideline recommends [...] [phone] Performed By: #### 3 4528-0 #### [facility] CLIA [id number] [address] [place] [address] [place] PT Coag (PPP) [Time] 16.6 s High 9.7-13.0 [facility] Comment on above: Order Comment: Speci men Type: BLOOD SPECIMEN Ordering Facility: [facility] Address: [address] [place] [address] Performed By: #### 3 4528-0 #### [facility] CLIA [id number] [address] [place] TROPONIN Ton 02-04-2022 Troponin T.cardiac [Mass/Vol] 0.016 ug/L Normal 0.000-0.029 [facility] Comment on above: Order Comment: Speci men Type: BLOOD SPECIMEN Ordering Facility: [facility] Address: [address] [place] [address] Performed By: #### 2 4323-8, DILAN #### [facility] CLIA [id number] [address] [place] Basophil percentageon 2021 Bilirubin [Mass/Vol] 0.10 mg/dL 0.20-1.00 [facility] Work Phone: Comment on above: For patients on eltr ombopag therapy, use of Dimension [place] TBIL is not recommended. Chloride [Moles/Vol] 102 mmol/L 98-107 [facility] Work Phone: Glucose [Mass/Vol] 216 mg/dL 74-106 [facility] Work Phone: Comment on above: Glucose result great er than or equal to 200 mg/dLsuggests DIABETES MELLITUS per A.D.A. criteria. Potassium [Moles/Vol] 4.2 mmol/L 3.5-5.1 [facility] Work Phone: Protein [Mass/Vol] 8.0 g/dL 6.4-8.2 [facility] Work Phone: Sodium [Moles/Vol] 134 mmol/L 136-145 [facility] Work Phone: WBC (Bld) [#/Vol] 5.7 10*3/uL 4.4-11.0 [facility] Work Phone: Blood erythrocytes count (nu mber/volume)on 02-01-2022 RBC (Bld) [#/Vol] 3.12 10*6/uL 4.6-6.[address] [facility] Work Phone: Blood hemoglobin measurement (mass/volume)on 02-01-2022 Hemoglobin (Bld) [Mass/Vol] 9.2 g/dL 13.0-16.5 [facility] Work Phone: Blood platelet mean volumeon 02-01-2022 Platelet mean volume (Bld) [Entitic vol] 9.9 fL 6.2-12.0 [facility] Work Phone: Determination of erythrocyte mean corpuscular volume (MCV)on 02-01-2022 MCV (RBC) [Entitic vol] 88.1 fL 80-94 [facility] Work Phone: Hematocrit Auto (Bld) [Volum e fraction]on 02-01-2022 Hematocrit (Bld) [Volume fraction] 27.5 % 40-54 [facility] Work Phone: Laboratory - Chemistry and C hemistry - challengeon 02-01-2022 ALP [Catalytic activity/Vol] 74 U/L 45-117 [facility] Work Phone: ALT [Catalytic activity/Vol] 26 U/L 16-61 [facility] Work Phone: CO2 [Moles/Vol] 25.0 mmol/L 21.0-32.0 [facility] Work Phone: Globulin (S) [Mass/Vol] 4.9 g/dL 2.2-4.2 [facility] Work Phone: Urea nitrogen/Creatinine [Mass ratio] 17.1 mg/mg 10-20 [facility] Work Phone: Laboratory - Hematology and Cell countson 02-01-2022 Erythrocyte distribution width (RBC) [Entitic vol] 38.7 fL 35.1-43.9 [facility] Work Phone: Erythrocyte distribution width (RBC) [Ratio] 12.0 % 11.6-14.6 [facility] Work Phone: MCH (RBC) [Entitic mass] 29.5 pg 27.0-32.0 [facility] Work Phone: MCHC Auto (RBC) [Mass/Vol]on 02-01-2022 MCHC (RBC) [Mass/Vol] 33.5 g/dL 32-36 [facility] Work Phone: No Panel Informationon 02-01 Carbamazepine (Tegretol) Level 10.1 ug/mL 4.0-12.0 [facility] Work Phone: Estimated GFR (MDRD) Amer 59 mL/min >60 [facility] Work Phone: Comment on above: GFR Calc Estimated GFR (MDRD) Non-Af Amer 49 mL/min >60 [facility] Work Phone: Comment on above: Non- GFR Calc Urine Microalbumin/Creatinine Ratio 3975.7 mg/g CRE <30 [facility] Work Phone: Platelets bldon 02-01-2022 Platelets (Bld) [#/Vol] 235 10*3/uL 150-450 [facility] Work Phone: Serum or plasma albumin abhi urement (mass/volume)on 02-01-2022 Albumin [Mass/Vol] 3.1 g/dL 3.2-5.0 [facility] Work Phone: Serum or plasma albumin/glob ulin mass ratioon 02-01-2022 Albumin/Globulin [Mass ratio] 0.6 {ratio} 0.9-2.4 [facility] Work Phone: Serum or plasma calcium abhi urement (mass/volume)on 02-01-2022 Calcium [Mass/Vol] 9.4 mg/dL 8.5-10.1 [facility] Work Phone: Serum or plasma creatinine m easurement (mass/volume)on 02-01-2022 Creatinine [Mass/Vol] 1.58 mg/dL 0.70-1.30 [facility] Work Phone: Comment on above: The validity of the calculated GFR & GFRAA in patients over 70 years has not been determined. Clinical correlation is essential. Serum or plasma urea nitroge n measurement (mass/volume)on 02-01-2022 Urea nitrogen [Mass/Vol] 27 mg/dL 7-18 [facility] Work Phone: Thin prep Papanicolaou smear with manual screeningon 02-01-2022 Thin prep Papanicolaou smear with manual screening 13 U/L 15-37 [facility] Work Phone: Thin prep Papanicolaou smear with manual screening 7 5-15 [facility] Work Phone: Thin prep Papanicolaou smear with manual screening 2290.0 mg/L NO RANGE EST. [facility] Work Phone: Urine creatinine measurement (mass/volume)on 02-01-2022 Creatinine (U) [Mass/Vol] 57.60 mg/dL NO RANGE EST. [facility] Work Phone: No Panel Informationon 01-28 [facility] Absolute lymphocyte counton 01-26-2022 Lymphocytes Auto (Unsp spec) [#/Vol] 1.48 10*3/uL 0.83-4.51 [facility] Work Phone: Basophil percentageon 2021 Basophils/100 WBC (Bld) 0.3 % 0-1 [facility] Work Phone: Chloride [Moles/Vol] 103 mmol/L 98-107 [facility] Work Phone: Eosinophils/100 WBC (Bld) 1.0 % 0-5 [facility] Work Phone: Glucose [Mass/Vol] 165 mg/dL 74-106 [facility] Work Phone: Comment on above: Slight Lipemia, Resu lt may be falsely increased.Fasting Glucose result greater than or equal to 126 mg/dL suggests DIABETES MELLITUS per A.D.A. criteria. Neutrophils (Bld) [#/Vol] 5.6 10*3/uL 2.0-7.7 [facility] Work Phone: Neutrophils/100 WBC (Bld) 71.4 % 47-70 [facility] Work Phone: Potassium [Moles/Vol] 3.9 mmol/L 3.5-5.1 [facility] Work Phone: Comment on above: Slight Hemolysis, Re sult may be falsely increased.-Slight Lipemia, Result may be falsely increased. Sodium [Moles/Vol] 135 mmol/L 136-145 [facility] Work Phone: WBC (Bld) [#/Vol] 7.9 10*3/uL 4.4-11.0 [facility] Work Phone: Blood erythrocytes count (nu mber/volume)on 01-26-2022 RBC (Bld) [#/Vol] 2.66 10*6/uL 4.6-6.[address] [facility] Work Phone: Blood hemoglobin measurement (mass/volume)on 01-26-2022 Hemoglobin (Bld) [Mass/Vol] 8.3 g/dL 13.0-16.5 [facility] Work Phone: Blood lymphocytes/100 leukoc yteson 01-26-2022 Lymphocytes/100 WBC (Bld) 18.8 % 19-41 [facility] Work Phone: Blood monocytes/100 leukocyt eson 01-26-2022 Monocytes/100 WBC (Bld) 7.9 % 0-10 [facility] Work Phone: Blood platelet mean volumeon 01-26-2022 Platelet mean volume (Bld) [Entitic vol] 9.6 fL 6.2-12.0 [facility] Work Phone: Determination of erythrocyte mean corpuscular volume (MCV)on 01-26-2022 MCV (RBC) [Entitic vol] 86.8 fL 80-94 [facility] Work Phone: Hematocrit Auto (Bld) [Volum e fraction]on 01-26-2022 Hematocrit (Bld) [Volume fraction] 23.1 % 40-54 [facility] Work Phone: Laboratory - Chemistry and C hemistry - challengeon 01-26-2022 CO2 [Moles/Vol] 24.0 mmol/L 21.0-32.0 [facility] Work Phone: Comment on above: Slight Lipemia, Resu lt may be falsely increased. Urea nitrogen/Creatinine [Mass ratio] 18.1 mg/mg 10-20 [facility] Work Phone: Laboratory - Hematology and Cell countson 01-26-2022 Erythrocyte distribution width (RBC) [Entitic vol] 38.5 fL 35.1-43.9 [facility] Work Phone: Erythrocyte distribution width (RBC) [Ratio] 12.0 % 11.6-14.6 [facility] Work Phone: Immature granulocytes/100 WBC (Bld) 0.600 % 0.0-0.9 [facility] Work Phone: Comment on above: IG% - Immature Granu locytes (promyelocytes, myelocytes and metamyelocytes) > 1% indicates that a LEFT SHIFT is Present. MCH (RBC) [Entitic mass] 31.2 pg 27.0-32.0 [facility] Work Phone: Nucleated RBC/100 WBC (Bld) [Ratio] 0 % 0-5 [facility] Work Phone: Laboratory - Microbiology an d Antimicrobial susceptibilityon 01-26-2022 Bacteria identified Cx Nom (Bld) No growth in 5 days. [facility] Work Phone: MCHC Auto (RBC) [Mass/Vol]on 01-26-2022 MCHC (RBC) [Mass/Vol] 35.9 g/dL 32-36 [facility] Work Phone: No Panel Informationon 01-26 Estimated Creatinine Clearance Calc 48.33 ml/min [facility] Work Phone: Estimated GFR (MDRD) Amer 54 mL/min >60 [facility] Work Phone: Comment on above: GFR Calc Estimated GFR (MDRD) Non-Af Amer 45 mL/min >60 [facility] Work Phone: Comment on above: Non- GFR Calc Platelets bldon 01-26-2022 Platelets (Bld) [#/Vol] 152 10*3/uL 150-450 [facility] Work Phone: Serum or plasma calcium abhi urement (mass/volume)on 01-26-2022 Calcium [Mass/Vol] 8.1 mg/dL 8.5-10.1 [facility] Work Phone: Comment on above: Slight Lipemia, Resu lt may be falsely increased. Serum or plasma creatinine m easurement (mass/volume)on 01-26-2022 Creatinine [Mass/Vol] 1.71 mg/dL 0.70-1.30 [facility] Work Phone: Comment on above: Slight Lipemia, Resu lt may be falsely increased.The validity of the calculated GFR & GFRAA in patients over 70 years has not been determined. Clinical correlation is essential. Serum or plasma urea nitroge n measurement (mass/volume)on 01-26-2022 Urea nitrogen [Mass/Vol] 31 mg/dL 7-18 [facility] Work Phone: Comment on above: Slight Lipemia, Resu lt may be falsely increased. Thin prep Papanicolaou smear with manual screeningon 01-26-2022 Thin prep Papanicolaou smear with manual screening 8 5-15 [facility] Work Phone: Absolute lymphocyte counton 11-29-2021 Lymphocytes Auto (Unsp spec) [#/Vol] 1.43 10*3/uL 0.83-4.51 [facility] Work Phone: Basophil percentageon 2021 Basophils/100 WBC (Bld) 0.4 % 0-1 [facility] Work Phone: Chloride [Moles/Vol] 107 mmol/L 98-107 [facility] Work Phone: Eosinophils/100 WBC (Bld) 1.8 % 0-5 [facility] Work Phone: Glucose [Mass/Vol] 225 mg/dL 74-106 [facility] Work Phone: Comment on above: Glucose result great er than or equal to 200 mg/dLsuggests DIABETES MELLITUS per A.D.A. criteria. Neutrophils (Bld) [#/Vol] 2.7 10*3/uL 2.0-7.7 [facility] Work Phone: Neutrophils/100 WBC (Bld) 58.9 % 47-70 [facility] Work Phone: Potassium [Moles/Vol] 5.3 mmol/L 3.5-5.1 [facility] Work Phone: Sodium [Moles/Vol] 135 mmol/L 136-145 [facility] Work Phone: WBC (Bld) [#/Vol] 4.5 10*3/uL 4.4-11.0 [facility] Work Phone: Blood erythrocytes count (nu mber/volume)on 11-29-2021 RBC (Bld) [#/Vol] 2.76 10*6/uL 4.6-6.[address] [facility] Work Phone: Blood hemoglobin measurement (mass/volume)on 11-29-2021 Hemoglobin (Bld) [Mass/Vol] 8.4 g/dL 13.0-16.5 [facility] Work Phone: Blood lymphocytes/100 leukoc yteson 11-29-2021 Lymphocytes/100 WBC (Bld) 31.6 % 19-41 [facility] Work Phone: Blood monocytes/100 leukocyt eson 11-29-2021 Monocytes/100 WBC (Bld) 6.6 % 0-10 [facility] Work Phone: Blood platelet mean volumeon 11-29-2021 Platelet mean volume (Bld) [Entitic vol] 10.1 fL 6.2-12.0 [facility] Work Phone: Determination of erythrocyte mean corpuscular volume (MCV)on 11-29-2021 MCV (RBC) [Entitic vol] 89.9 fL 80-94 [facility] Work Phone: Hematocrit Auto (Bld) [Volum e fraction]on 11-29-2021 Hematocrit (Bld) [Volume fraction] 24.8 % 40-54 [facility] Work Phone: Laboratory - Chemistry and C hemistry - challengeon 11-29-2021 CO2 [Moles/Vol] 23.0 mmol/L 21.0-32.0 [facility] Work Phone: Urea nitrogen/Creatinine [Mass ratio] 17.0 mg/mg 10-20 [facility] Work Phone: Laboratory - Hematology and Cell countson 11-29-2021 Erythrocyte distribution width (RBC) [Entitic vol] 42.0 fL 35.1-43.9 [facility] Work Phone: Erythrocyte distribution width (RBC) [Ratio] 12.9 % 11.6-14.6 [facility] Work Phone: Immature granulocytes/100 WBC (Bld) 0.700 % 0.0-0.9 [facility] Work Phone: Comment on above: IG% - Immature Granu locytes (promyelocytes, myelocytes and metamyelocytes) > 1% indicates that a LEFT SHIFT is Present. MCH (RBC) [Entitic mass] 30.4 pg 27.0-32.0 [facility] Work Phone: Nucleated RBC/100 WBC (Bld) [Ratio] 0 % 0-5 [facility] Work Phone: MCHC Auto (RBC) [Mass/Vol]on 11-29-2021 MCHC (RBC) [Mass/Vol] 33.9 g/dL 32-36 [facility] Work Phone: No Panel Informationon 11-29 Estimated Creatinine Clearance Calc 51.98 ml/min [facility] Work Phone: Estimated GFR (MDRD) Amer 59 mL/min >60 [facility] Work Phone: Comment on above: GFR Calc Estimated GFR (MDRD) Non-Af Amer 49 mL/min >60 [facility] Work Phone: Comment on above: Non- GFR Calc Platelets bldon 11-29-2021 Platelets (Bld) [#/Vol] 179 10*3/uL 150-450 [facility] Work Phone: Serum or plasma calcium abhi urement (mass/volume)on 11-29-2021 Calcium [Mass/Vol] 8.6 mg/dL 8.5-10.1 [facility] Work Phone: Serum or plasma creatinine m easurement (mass/volume)on 11-29-2021 Creatinine [Mass/Vol] 1.59 mg/dL 0.70-1.30 [facility] Work Phone: Comment on above: The validity of the calculated GFR & GFRAA in patients over 70 years has not been determined. Clinical correlation is essential. Serum or plasma urea nitroge n measurement (mass/volume)on 11-29-2021 Urea nitrogen [Mass/Vol] 27 mg/dL 7-18 [facility] Work Phone: Thin prep Papanicolaou smear with manual screeningon 11-29-2021 Thin prep Papanicolaou smear with manual screening 5 5-15 [facility] Work Phone: Absolute lymphocyte counton 11-21-2021 Lymphocytes Auto (Unsp spec) [#/Vol] 1.67 10*3/uL 0.83-4.51 [facility] Work Phone: Basophil percentageon 2021 Basophils/100 WBC (Bld) 0.6 % 0-1 [facility] Work Phone: Chloride [Moles/Vol] 104 mmol/L 98-107 [facility] Work Phone: Eosinophils/100 WBC (Bld) 1.7 % 0-5 [facility] Work Phone: Glucose [Mass/Vol] 322 mg/dL 74-106 [facility] Work Phone: Comment on above: Glucose result great er than or equal to 200 mg/dLsuggests DIABETES MELLITUS per A.D.A. criteria. Neutrophils (Bld) [#/Vol] 2.6 10*3/uL 2.0-7.7 [facility] Work Phone: Neutrophils/100 WBC (Bld) 54.8 % 47-70 [facility] Work Phone: Potassium [Moles/Vol] 5.0 mmol/L 3.5-5.1 [facility] Work Phone: Sodium [Moles/Vol] 131 mmol/L 136-145 [facility] Work Phone: WBC (Bld) [#/Vol] 4.7 10*3/uL 4.4-11.0 [facility] Work Phone: [phone] Blood erythrocytes count (nu mber/volume)on 11-21-2021 RBC (Bld) [#/Vol] 2.87 10*6/uL 4.6-6.2 [facility] Work Phone: [phone] Blood hemoglobin measurement (mass/volume)on 11-21-2021 Hemoglobin (Bld) [Mass/Vol] 9.1 g/dL 13.0-16.5 [facility] Work Phone: [phone] Blood lymphocytes/100 leukoc yteson 11-21-2021 Lymphocytes/100 WBC (Bld) 35.8 % 19-41 [facility] Work Phone: Blood monocytes/100 leukocyt eson 11-21-2021 Monocytes/100 WBC (Bld) 6.2 % 0-10 [facility] Work Phone: Blood platelet mean volumeon 11-21-2021 Platelet mean volume (Bld) [Entitic vol] 9.8 fL 6.2-12.0 [facility] Work Phone: Determination of erythrocyte mean corpuscular volume (MCV)on 11-21-2021 MCV (RBC) [Entitic vol] 88.5 fL 80-94 [facility] Work Phone: Hematocrit Auto (Bld) [Volum e fraction]on 11-21-2021 Hematocrit (Bld) [Volume fraction] 25.4 % 40-54 [facility] Work Phone: Laboratory - Chemistry and C hemistry - challengeon 11-21-2021 CO2 [Moles/Vol] 20.0 mmol/L 21.0-32.0 [facility] Work Phone: Urea nitrogen/Creatinine [Mass ratio] 25.9 mg/mg 10-20 [facility] Work Phone: Laboratory - Hematology and Cell countson 11-21-2021 Erythrocyte distribution width (RBC) [Entitic vol] 41.5 fL 35.1-43.9 [facility] Work Phone: Erythrocyte distribution width (RBC) [Ratio] 12.8 % 11.6-14.6 [facility] Work Phone: Immature granulocytes/100 WBC (Bld) 0.900 % 0.0-0.9 [facility] Work Phone: Comment on above: IG% - Immature Granu locytes (promyelocytes, myelocytes and metamyelocytes) > 1% indicates that a LEFT SHIFT is Present. MCH (RBC) [Entitic mass] 31.7 pg 27.0-32.0 [facility] Work Phone: Nucleated RBC/100 WBC (Bld) [Ratio] 0 % 0-5 [facility] Work Phone: MCHC Auto (RBC) [Mass/Vol]on 11-21-2021 MCHC (RBC) [Mass/Vol] 35.8 g/dL 32-36 [facility] Work Phone: No Panel Informationon 11-21 Estimated Creatinine Clearance Calc 49.79 ml/min [facility] Work Phone: Estimated GFR (MDRD) Amer 56 mL/min >60 [facility] Work Phone: Comment on above: GFR Calc Estimated GFR (MDRD) Non-Af Amer 46 mL/min >60 [facility] Work Phone: Comment on above: Non- GFR Calc Platelets bldon 11-21-2021 Platelets (Bld) [#/Vol] 196 10*3/uL 150-450 [facility] Work Phone: Serum or plasma calcium abhi urement (mass/volume)on 11-21-2021 Calcium [Mass/Vol] 8.2 mg/dL 8.5-10.1 [facility] Work Phone: Serum or plasma creatinine m easurement (mass/volume)on 11-21-2021 Creatinine [Mass/Vol] 1.66 mg/dL 0.70-1.30 [facility] Work Phone: Comment on above: The validity of the calculated GFR & GFRAA in patients over 70 years has not been determined. Clinical correlation is essential. Serum or plasma urea nitroge n measurement (mass/volume)on 11-21-2021 Urea nitrogen [Mass/Vol] 43 mg/dL 7-18 [facility] Work Phone: Thin prep Papanicolaou smear with manual screeningon 11-21-2021 Thin prep Papanicolaou smear with manual screening 7 5-15 [facility] Work Phone: Iron measurement (mass/mass) on 04-15-2021 Iron (Unsp spec) [Mass/Mass] 92 ug/dL 65-175 [facility] Comment on above: Moderate Hemolysis, Result may be falsely increased. Laboratory - Chemistry and C hemistry - challengeon 04-15-2021 Cobalamin (Vitamin B12) [Mass/Vol] 791 pg/mL 211-911 [facility] No Panel Informationon 04-15 Thyroid Stimulating Hormone (TSH) 1.28 uIU/mL 0.358-3.74 [facility] Total Iron Binding Capacity 307 ug/dL 250-450 [facility] Comment on above: Moderate Hemolysis, Result may be falsely increased. Serum or plasma ferritin ngozi surement (mass/volume)on 04-15-2021 Ferritin [Mass/Vol] 390 ng/mL 26-[address] [facility] Serum or plasma iron saturat ion measurement (mass fraction)on 04-15-2021 Iron saturation [Mass fraction] 30.0 % 15.0-55.0 [facility] Absolute lymphocyte counton 04-09-2021 Lymphocytes Auto (Unsp spec) [#/Vol] 1.94 10*3/uL 0.83-4.51 [facility] Work Phone: Basophil percentageon 2020 Bilirubin [Mass/Vol] 0.30 mg/dL 0.20-1.00 [facility] Work Phone: Comment on above: For patients on eltr ombopag therapy, use of Dimension [place] TBIL is not recommended. Chloride [Moles/Vol] 98 mmol/L 98-107 [facility] Work Phone: Eosinophils/100 WBC (Bld) 1.5 % 0-5 [facility] Work Phone: Glucose [Mass/Vol] 264 mg/dL 74-106 [facility] Work Phone: Comment on above: Glucose result great er than or equal to 200 mg/dLsuggests DIABETES MELLITUS per A.D.A. criteria.Please note revised GLUCOSE reference range effective 2017. Neutrophils (Bld) [#/Vol] 3.5 10*3/uL 2.0-7.7 [facility] Work Phone: [phone] Potassium [Moles/Vol] 4.2 mmol/L 3.5-5.1 [facility] Work Phone: Protein [Mass/Vol] 7.8 g/dL 6.4-8.2 [facility] Work Phone: [phone] Sodium [Moles/Vol] 129 mmol/L 136-145 [facility] Work Phone: WBC (Bld) [#/Vol] 6.0 10*3/uL 4.4-11.0 [facility] Work Phone: [phone] Blood erythrocytes count (nu mber/volume)on 04-09-2021 RBC (Bld) [#/Vol] 3.26 10*6/uL 4.6-6.2 [facility] Work Phone: [phone] Blood hemoglobin measurement (mass/volume)on 04-09-2021 Hemoglobin (Bld) [Mass/Vol] 10.4 g/dL 13.0-16.5 [facility] Work Phone: Blood lymphocytes/100 leukoc yteson 04-09-2021 Lymphocytes/100 WBC (Bld) 32.5 % 19-41 [facility] Work Phone: Blood monocytes/100 leukocyt eson 04-09-2021 Monocytes/100 WBC (Bld) 4.5 % 0-10 [facility] Work Phone: Blood platelet mean volumeon 04-09-2021 Platelet mean volume (Bld) [Entitic vol] 9.8 fL 6.2-12.0 [facility] Work Phone: Determination of erythrocyte mean corpuscular volume (MCV)on 04-09-2021 MCV (RBC) [Entitic vol] 85.9 fL 80-94 [facility] Work Phone: Hematocrit Auto (Bld) [Volum e fraction]on 04-09-2021 Hematocrit (Bld) [Volume fraction] 28.0 % 40-54 [facility] Work Phone: Laboratory - Chemistry and C hemistry - challengeon 04-09-2021 ALP [Catalytic activity/Vol] 46 U/L 45-117 [facility] Work Phone: [phone] ALT [Catalytic activity/Vol] 33 U/L 16-61 [facility] Work Phone: CO2 [Moles/Vol] 25.0 mmol/L 21.0-32.0 [facility] Work Phone: Globulin (S) [Mass/Vol] 4.2 g/dL 2.2-4.2 [facility] Work Phone: Urea nitrogen/Creatinine [Mass ratio] 17.7 mg/mg 10-20 [facility] Work Phone: Laboratory - Hematology and Cell countson 04-09-2021 Basophils/100 WBC (Unsp spec) 0.5 % 0-1 [facility] Work Phone: Erythrocyte distribution width (RBC) [Entitic vol] 37.9 fL 35.1-43.9 [facility] Work Phone: Erythrocyte distribution width (RBC) [Ratio] 12.2 % 11.6-14.6 [facility] Work Phone: Immature granulocytes/100 WBC (Bld) 1.700 % 0.0-0.9 [facility] Work Phone: Comment on above: IG% - Immature Granu locytes (promyelocytes, myelocytes and metamyelocytes) > 1% indicates that a LEFT SHIFT is Present. MCH (RBC) [Entitic mass] 31.9 pg 27.0-32.0 [facility] Work Phone: Neutrophils/100 WBC (Bld) 59.3 % 47-70 [facility] Work Phone: Nucleated RBC/100 WBC (Bld) [Ratio] 0 % 0-5 [facility] Work Phone: MCHC Auto (RBC) [Mass/Vol]on 04-09-2021 MCHC (RBC) [Mass/Vol] 37.1 g/dL 32-36 [facility] Work Phone: [phone] No Panel Informationon 04-09 Estimated Creatinine Clearance Calc 63.28 ml/min [facility] Work Phone: Estimated GFR (MDRD) Amer 68 mL/min >60 [facility] Work Phone: [phone] Comment on above: GFR Calc Estimated GFR (MDRD) Non-Af Amer 56 mL/min >60 [facility] Work Phone: Comment on above: Non- GFR Calc Platelets bldon 04-09-2021 Platelets (Bld) [#/Vol] 196 10*3/uL 150-450 [facility] Work Phone: Serum or plasma albumin abhi urement (mass/volume)on 04-09-2021 Albumin [Mass/Vol] 3.6 g/dL 3.2-5.0 [facility] Work Phone: Serum or plasma albumin/glob ulin mass ratioon 04-09-2021 Albumin/Globulin [Mass ratio] 0.9 {ratio} 0.9-2.4 [facility] Work Phone: Serum or plasma calcium abhi urement (mass/volume)on 04-09-2021 Calcium [Mass/Vol] 8.7 mg/dL 8.5-10.1 [facility] Work Phone: Serum or plasma carcinoembry onic antigen measurement (mass/volume)on 04-09-2021 Carcinoembryonic Ag [Mass/Vol] 1.7 ng/mL 0.0-4.7 [facility] Work Phone: Comment on above: Nonsmokers <3.9 Smok ers <5.6[employer] Electrochemiluminescence Immunoassay(ECLIA)Values obtained with different assay methods or kitscannot be used interchangeably. Results cannot beinterpreted as absolute evidence of the presence orabsence of malignant disease.Performed at: [employer] [address] [id number] Director: Bradley Peña PhD, Phone: [phone] Serum or plasma creatinine m easurement (mass/volume)on 04-09-2021 Creatinine [Mass/Vol] 1.41 mg/dL 0.70-1.30 [facility] Work Phone: Comment on above: The validity of the calculated GFR & GFRAA in patients over 70 years has not been determined. Clinical correlation is essential. Serum or plasma urea nitroge n measurement (mass/volume)on 04-09-2021 Urea nitrogen [Mass/Vol] 25 mg/dL 7-18 [facility] Work Phone: Thin prep Papanicolaou smear with manual screeningon 04-09-2021 Thin prep Papanicolaou smear with manual screening 23 U/L 15-37 [facility] Work Phone: Thin prep Papanicolaou smear with manual screening 6 5-15 [facility] Work Phone: Thin prep Papanicolaou smear with manual screening 122 U/L 87-241 [facility] CNOVon 01-29-2021 CNOV Office Visit (NEURGN ) -------- REGINALDO HUFFMAN ([id number]) 1970 M Date Time Provider Department 01/29/21 [...] male from [place] who presents to the [facility] outpatient neurology department with a [...] 1 ML INJECTIONS EVERY 2 WEEKS omega 9-fip-qji-fish oil 300-400-1,000 mg cap Take 1 capsule by mouth once daily. Multivitamin capsule Take 1 capsule by mouth once daily. alcohol swabs padm Use 8 swabs daily TO CHECK BLOOD SUGAR AND FOR INSULIN INJECTIONS blood sugar diagnostic (FREESTYLE LITE STRIPS) test strip TEST four times a day, IDDM, E11.65 Insulin [place], Disposable, (PEN NEEDLES) 31 gauge x 1/4 [...] MEDICAL HISTORY (more content not included)... Normal [facility] Lilly 01-29-2021 LETITIA Telephone (NEURGN) -------- REGINALDO HUFFMAN ([id number]) 1970 M Date Time Provider Department 01/29/21 ERNESTO MAYO During your visit today, we recorded the following information about you: Shirin Martinez 01/29/2021 3:14 PM Signed Reginaldo decided he would like to set up his MRI Brain wo/w IVCON appointment in the [place] location. He has his order and will [...] Status:Closed by SHIRIN MARTINEZ on 01/29/21 Normal [facility] CRP SerPl-mCncon 01-29-2021 CRP [Mass/Vol] 1.3 mg/dL High <0.9 [facility] Comment on above: Order Comment: Speci men Type: BLOOD SPECIMEN Performed By: #### 1 [id number] #### [facility] CLIA [id number] [address] [place] [address] ESR Westergren method (Bld) [Velocity]on 01-29-2021 ESR (Bld) [Velocity] 40 mm/h High 0-15 [facility] Comment on above: Order Comment: Speci men Type: BLOOD SPECIMEN Performed By: #### 4 [id number] #### [facility] CLIA [id number] [address] [place] [address] CNOVon 12-10-2020 CNOV Office Visit (NEEPBA ) -------- REGINALDO HUFFMAN ([id number]) 1970 M Date Time Provider Department 12/10/20 8:20 AM LIYAH STILL During your visit today, we recorded the following information about you: Pulse Blood pressure Weight Height 75/minute 131/84 95.3 kg 1.727 m Liyah Still MD 12/10/2020 10:29 PM Signed [facility] Neurological [facility] EPILEPSY CLINIC NOTE - RETURN VISIT [...] was not using pillbox. Always goes to [place] ED for seizures; given Dilaudid and something else. Each seizure lasts about 5 hours, left face and arm twitching. He remains aware, is able to talk. One seizure in 2020 so far: 11/14/2020, seen in [place] ED. After IV meds, seizure subsides within [...] were normal. MRI brain was normal at [facility] in 2019. Current AED: CBZ 600 [...] to the house. 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 EXAM Alert, [...] 09/30/2014 12 (more content not included)... Normal [facility] Erythrocyte distribution wid th standard deviationon 10-13-2017 Erythrocyte distribution width (RBC) [Entitic vol] 41.6 fL 35.1-43.9 [facility] - Hematology and Cell countson 10-13-2017 Erythrocyte distribution width (RBC) [Ratio] 13.1 % 11.6-14.6 [facility] No Panel Informationon 10-13 Carcinoembryonic Ag Serial Monitor See comment [facility] Comment on above: Scanned image report available in EMR Total cell counton 8 Cells counted Molgen (Bld/Tiss) [#] Not Reportable [facility] - Microbiology an d Antimicrobial susceptibility Bacteria identified Cx Nom (Bld) No growth in 5 days. [facility] Work Phone: Vital Signs Date Time Vital Sign Value Performing Clinician Xii rauly 06-30-2025 09:53-0500 Body height 172.72 cm Kimberlyn East MD Work Phone: [facility] 06-30-2025 09:53-0500 Body mass index (BMI) [Ratio] 30.7 kg/m2 Kimberlyn East MD Work Phone: [facility] 06-30-2025 09:53-0500 Body temperature 98 [degF] Kimberlyn East MD Work Phone: [facility] 06-30-2025 09:53-0500 Body weight 91.62 kg Kimberlyn East MD Work Phone: [facility] 06-30-2025 09:53-0500 Diastolic blood pressure 82 mm[Hg] Kimberlyn East MD Work Phone: [facility] 06-30-2025 09:53-0500 Heart rate 60 /min Kimberlyn East MD Work Phone: [facility] 06-30-2025 09:53-0500 Respiratory rate 16 /min Kimberlyn East MD Work Phone: [facility] 06-30-2025 09:53-0500 SaO2% (BldA) [Mass fraction] 98 % Kimberlyn East MD Work Phone: [facility] 06-30-2025 09:53-0500 Systolic blood pressure 211 mm[Hg] Kimberlyn East MD Work Phone: [facility] 06-25-2025 11:22-0400 Body temperature 98.2 [degF] Kimberlyn East MD Work Phone: [facility] 06-25-2025 11:22-0400 Body weight 91.17 kg Kimberlyn East MD Work Phone: [facility] 06-25-2025 11:22-0400 Diastolic blood pressure 82 mm[Hg] Kimberlyn East MD Work Phone: [facility] 06-25-2025 11:22-0400 Heart rate 60 /min Kimberlyn East MD Work Phone: [facility] 06-25-2025 11:22-0400 Respiratory rate 16 /min Kimberlyn East MD Work Phone: 8(438)680-440143 [place] [address] 06-25-2025 11:22-0400 SaO2% (BldA) [Mass fraction] 99 % Kimberlyn East MD Work Phone: 1(539)001-562344 [address] 06-25-2025 11:22-0400 Systolic blood pressure 139 mm[Hg] Kimberlyn East MD Work Phone: 5(905)559-429658 [place] [address] 06-18-2025 10:44-0400 Body mass index (BMI) [Ratio] 30.9 kg/m2 Kimberlyn East MD Work Phone: 3(149)261-508843 [place] [address] 06-18-2025 10:44-0400 Body weight 92.07 kg Kimberlyn East MD Work Phone: 0(198)059-536758 [place] [address] 06-18-2025 10:44-0400 Diastolic blood pressure 75 mm[Hg] Kimberlyn East MD Work Phone: 0(764)316-084243 [place] [address] 06-18-2025 10:44-0400 Heart rate 66 /min Kimberlyn East MD Work Phone: 7(042)225-030343 [place] [address] 06-18-2025 10:44-0400 SaO2% (BldA) [Mass fraction] 98 % Kimberlyn East MD Work Phone: 3(581)609-022343 [place] [address] 06-18-2025 10:44-0400 Systolic blood pressure 145 mm[Hg] Kimberlyn East MD Work Phone: [facility] 06-04-2025 08:21-0400 Body height 172.72 cm Kimberlyn East MD Work Phone: [facility] 06-04-2025 08:21-0400 Body weight 90.26 kg Kimberlyn East MD Work Phone: [facility] 06-03-2025 07:55-0400 Body mass index (BMI) [Ratio] 30.2 kg/m2 Kimberlyn East MD Work Phone: [facility] 04-23-2025 14:30-0400 Body height 172.7 cm Lillian Sobotka DO Work Phone: [facility] 04-23-2025 14:30-0400 Body mass index (BMI) [Ratio] 30.35 kg/m2 Lillian Sobotka DO Work Phone: [facility] 04-23-2025 14:30-0400 Body weight 90.54 kg Lillian Sobotka DO Work Phone: [facility] 04-23-2025 14:30-0400 Diastolic blood pressure 80 mm[Hg] Lillian Sobotka DO Work Phone: [facility] 04-23-2025 14:30-0400 Heart rate 69 /min Lillian Sobotka DO Work Phone: [facility] 04-23-2025 14:30-0400 SaO2% (BldA) [Mass fraction] 99 % Lillian Sobotka DO Work Phone: [facility] 04-23-2025 14:30-0400 Systolic blood pressure 136 mm[Hg] Lillian Sobotka DO Work Phone: [facility] 04-23-2025 13:19-0400 Diastolic blood pressure 81 mm[Hg] Lillian Sobotka DO Work Phone: [facility] 04-23-2025 13:19-0400 Heart rate 65 /min Lillian Sobotka DO Work Phone: [facility] 04-23-2025 13:19-0400 Systolic blood pressure 180 mm[Hg] Lillian Sobotka DO Work Phone: [facility] 04-21-2025 07:50-0400 Body height 172.72 cm Kimberlyn East MD Work Phone: [facility] 04-21-2025 07:50-0400 Body mass index (BMI) [Ratio] 30.9 kg/m2 Kimberlyn East MD Work Phone: [facility] 04-21-2025 07:50-0400 Body temperature 98.2 [degF] Kimberlyn East MD Work Phone: [facility] 04-21-2025 07:50-0400 Body weight 92.07 kg Kimberlyn East MD Work Phone: [facility] 04-21-2025 07:50-0400 Diastolic blood pressure 86 mm[Hg] Kimberlyn East MD Work Phone: [facility] 04-21-2025 07:50-0400 Heart rate 66 /min Kimberlyn East MD Work Phone: [facility] 04-21-2025 07:50-0400 Respiratory rate 15 /min Kimberlyn East MD Work Phone: [facility] 04-21-2025 07:50-0400 SaO2% (BldA) [Mass fraction] 98 % Kimberlyn East MD Work Phone: [facility] 04-21-2025 07:50-0400 Systolic blood pressure 200 mm[Hg] Kimberlyn East MD Work Phone: [facility] 02-21-2025 08:38-0400 Body temperature 98.2 [degF] Kimberlyn East MD Work Phone: [facility] 02-21-2025 08:38-0400 Body weight 90.26 kg Kimberlyn East MD Work Phone: [facility] 02-21-2025 08:38-0400 Diastolic blood pressure 82 mm[Hg] Kimberlyn East MD Work Phone: [facility] 02-21-2025 08:38-0400 Heart rate 69 /min Kimberlyn East MD Work Phone: [facility] 02-21-2025 08:38-0400 Respiratory rate 16 /min Kimberlyn East MD Work Phone: [facility] 02-21-2025 08:38-0400 SaO2% (BldA) [Mass fraction] 98 % Kimberlyn East MD Work Phone: [facility] 02-21-2025 08:38-0400 Systolic blood pressure 179 mm[Hg] Kimberlyn East MD Work Phone: [facility] 01-27-2025 16:15-0400 Diastolic blood pressure 89 mm[Hg] Interventional Ihisschedule Work Phone: [facility] 01-27-2025 16:15-0400 Systolic blood pressure 188 mm[Hg] Interventional Ihisschedule Work Phone: [facility] 01-27-2025 15:00-0400 Heart rate 62 /min Interventional Ihisschedule Work Phone: [facility] 01-27-2025 15:00-0400 SaO2% (BldA) [Mass fraction] 99 % Interventional Ihisschedule Work Phone: [facility] 01-27-2025 13:32-0400 Body temperature 97.81 [degF] Interventional Ihisschedule Work Phone: [facility] 01-27-2025 13:10-0400 Respiratory rate 8 /min Interventional Ihisschedule Work Phone: [facility] 12-25-2024 14:10-0400 Body height 172.7 cm Lillian Hall DO Work Phone: [facility] 12-25-2024 14:10-0400 Body mass index (BMI) [Ratio] 30.23 kg/m2 Lillian Sobotka DO Work Phone: [facility] 12-25-2024 14:10-0400 Body weight 90.17 kg Lillian Sobotka DO Work Phone: [facility] 12-25-2024 14:10-0400 Diastolic blood pressure 68 mm[Hg] Lillian Sobotka DO Work Phone: [facility] 12-25-2024 14:10-0400 Heart rate 70 /min Lillian Sobotka DO Work Phone: [facility] 12-25-2024 14:10-0400 Respiratory rate 16 /min Lillian Sobotka DO Work Phone: [facility] 12-25-2024 14:10-0400 SaO2% (BldA) [Mass fraction] 96 % Lillian Sobotka DO Work Phone: [facility] 12-25-2024 14:10-0400 Systolic blood pressure 160 mm[Hg] Lillian Sobotka DO Work Phone: [facility] 12-20-2024 09:38-0400 Body temperature 98 [degF] Kimberlyn East MD Work Phone: [facility] 12-20-2024 09:38-0400 Body weight 90.49 kg Kimberlyn East MD Work Phone: [facility] 12-20-2024 09:38-0400 Diastolic blood pressure 72 mm[Hg] Kimberlyn East MD Work Phone: [facility] 12-20-2024 09:38-0400 Heart rate 64 /min Kimberlyn East MD Work Phone: [facility] 12-20-2024 09:38-0400 Respiratory rate 17 /min Kimberlyn East MD Work Phone: [facility] 12-20-2024 09:38-0400 SaO2% (BldA) [Mass fraction] 96 % Kimberlyn East MD Work Phone: [facility] 12-20-2024 09:38-0400 Systolic blood pressure 137 mm[Hg] Kimberlyn East MD Work Phone: [facility] 12-18-2024 10:33-0400 Body height 172.72 cm Kimberlyn East MD Work Phone: [facility] 12-18-2024 10:33-0400 Body mass index (BMI) [Ratio] 30.7 kg/m2 Kimberlyn East MD Work Phone: [facility] 12-18-2024 10:33-0400 Body weight 91.68 kg Kimberlyn East MD Work Phone: [facility] 12-18-2024 10:33-0400 Diastolic blood pressure 77 mm[Hg] Kimberlyn East MD Work Phone: [facility] 12-18-2024 10:33-0400 Heart rate 64 /min Kimberlyn East MD Work Phone: [facility] 12-18-2024 10:33-0400 SaO2% (BldA) [Mass fraction] 99 % Kimberlyn East MD Work Phone: [facility] 12-18-2024 10:33-0400 Systolic blood pressure 144 mm[Hg] Kimberlyn East MD Work Phone: [facility] 12-13-2024 09:52-0400 Body height 172.7 cm Tyrese PEARL Work Phone: [facility] 12-13-2024 09:52-0400 Body mass index (BMI) [Ratio] 29.8 kg/m2 Tyrese PEARL Work Phone: [facility] 12-13-2024 09:52-0400 Body weight 88.91 kg Tyrese PEARL Work Phone: [facility] 12-13-2024 09:52-0400 Diastolic blood pressure 85 mm[Hg] Tyrese Anisa MBBS Work Phone: [facility] 12-13-2024 09:52-0400 Heart rate 63 /min Tyrese Anisa MBBS Work Phone: [facility] 12-13-2024 09:52-0400 Systolic blood pressure 166 mm[Hg] Tyrese Anisa MBBS Work Phone: [facility] 12-11-2024 09:41-0400 Body height 172.7 cm Tyrese Anisa MBBS Work Phone: [facility] 12-11-2024 09:41-0400 Body mass index (BMI) [Ratio] 29.95 kg/m2 Tyrese Anisa MBBS Work Phone: [facility] 12-11-2024 09:41-0400 Body weight 89.36 kg Tyrese Anisa MBBS Work Phone: [facility] 12-11-2024 09:41-0400 Diastolic blood pressure 70 mm[Hg] Tyrese Anisa MBBS Work Phone: [facility] 12-11-2024 09:41-0400 Heart rate 67 /min Tyrese Anisa MBBS Work Phone: [facility] 12-11-2024 09:41-0400 Systolic blood pressure 135 mm[Hg] Tyrese Anisa MBBS Work Phone: [facility] 11-08-2024 11:16-0400 Body height 172.7 cm Tyrese Anisa MBBS Work Phone: [facility] 11-08-2024 11:16-0400 Body mass index (BMI) [Ratio] 29.8 kg/m2 Tyrese Anisa MBBS Work Phone: [facility] 11-08-2024 11:16-0400 Body temperature 97.5 [degF] Tyrese Lui MBBS Work Phone: [facility] 11-08-2024 11:16-0400 Body weight 88.91 kg Tyrese Lui MBBS Work Phone: [facility] 11-08-2024 11:16-0400 Diastolic blood pressure 78 mm[Hg] Tyrese Lui MBBS Work Phone: [facility] 11-08-2024 11:16-0400 Heart rate 64 /min Tyrese Lui MBBS Work Phone: [facility] 11-08-2024 11:16-0400 Systolic blood pressure 160 mm[Hg] Tyrese Lui MBBS Work Phone: [facility] 10-30-2024 07:46-0500 Body weight 92.07 kg Kimberlyn East MD Work Phone: [facility] 10-29-2024 12:46-0500 Body mass index (BMI) [Ratio] 30.9 kg/m2 Kimberlyn East MD Work Phone: [facility] 08-14-2024 11:05-0500 Body weight 91.31 kg Kimberlyn East MD Work Phone: [facility] 07-02-2024 16:25-0500 Body temperature 96.6 [degF] Kimberlyn East MD Work Phone: [facility] 07-02-2024 16:25-0500 Diastolic blood pressure 94 mm[Hg] Kimberlyn East MD Work Phone: [facility] 07-02-2024 16:25-0500 Heart rate 67 /min Kimberlyn East MD Work Phone: [facility] 07-02-2024 16:25-0500 Respiratory rate 16 /min Kimberlyn East MD Work Phone: [facility] 07-02-2024 16:25-0500 SaO2% (BldA) [Mass fraction] 100 % Kimberlyn East MD Work Phone: [facility] 07-02-2024 16:25-0500 Systolic blood pressure 202 mm[Hg] Kimberlyn East MD Work Phone: [facility] 07-02-2024 13:28-0500 Body mass index (BMI) [Ratio] 30.7 kg/m2 Kimberlyn East MD Work Phone: [facility] 12-18-2023 17:16-0400 Body temperature 94.9 [degF] DO Luciana Jose Work Phone: [facility] 12-18-2023 17:16-0400 Diastolic blood pressure 92 mm[Hg] DO Luciana Jose Work Phone: [facility] 12-18-2023 17:16-0400 Heart rate 84 /min DO Luciana Jose Work Phone: [facility] 12-18-2023 17:16-0400 Respiratory rate 16 /min DO Luciana Jose Work Phone: [facility] 12-18-2023 17:16-0400 SaO2% (BldA) [Mass fraction] 97 % DO Luciana Jose Work Phone: [facility] 12-18-2023 17:16-0400 Systolic blood pressure 137 mm[Hg] DO Luciana Jose Work Phone: [facility] 12-18-2023 14:15-0400 Body height 173 cm DO Luciana Jose Work Phone: [facility] 12-18-2023 14:15-0400 Body mass index (BMI) [Ratio] 31.2 kg/m2 DO Luciana Jose Work Phone: [facility] 12-18-2023 14:15-0400 Body weight 93.44 kg DO Luciana Jose Work Phone: [facility] 12-12-2023 10:50-0400 Body height 172.72 cm DO Luciana Jose Work Phone: [facility] 12-12-2023 10:50-0400 Body mass index (BMI) [Ratio] 31 kg/m2 DO Luciana Jose Work Phone: [facility] 12-12-2023 10:50-0400 Body weight 92.53 kg DO Luciana Jose Work Phone: [facility] 12-09-2023 09:48-0400 Body temperature 98.6 [degF] DO Luciana Jose Work Phone: [facility] 12-09-2023 09:48-0400 Diastolic blood pressure 80 mm[Hg] DO Luciana Jose Work Phone: [facility] 12-09-2023 09:48-0400 Heart rate 76 /min DO Luciana Jose Work Phone: [facility] 12-09-2023 09:48-0400 Respiratory rate 16 /min DO Luciana Jose Work Phone: [facility] 12-09-2023 09:48-0400 SaO2% (BldA) [Mass fraction] 100 % DO Luciana Jose Work Phone: [facility] 12-09-2023 09:48-0400 Systolic blood pressure 158 mm[Hg] DO Luciana Jose Work Phone: [facility] 12-09-2023 06:00-0400 Body mass index (BMI) [Ratio] 30.4 kg/m2 DO Luciana Jose Work Phone: [facility] 12-09-2023 06:00-0400 Body weight 90.7 kg DO Luciana Jose Work Phone: [facility] 12-08-2023 14:36-0400 Body height 172.72 cm DO Luciana Jose Work Phone: [facility] 12-07-2023 22:23-0400 SaO2% (BldA) [Mass fraction] 100 % DO Luciana Jose Work Phone: [facility] 12-07-2023 22:11-0400 Body height 172.72 cm DO Luciana Jose Work Phone: [facility] 12-07-2023 22:11-0400 Body mass index (BMI) [Ratio] 30.5 kg/m2 DO Luciana Jose Work Phone: [facility] 12-07-2023 22:11-0400 Body weight 91.1 kg DO Luciana Jose Work Phone: [facility] 12-07-2023 22:00-0400 Body temperature 98.6 [degF] DO Luciana Jose Work Phone: [facility] 12-07-2023 22:00-0400 Diastolic blood pressure 77 mm[Hg] DO Luciana Ojse Work Phone: [facility] 12-07-2023 22:00-0400 Heart rate 82 /min DO Luciana Jose Work Phone: [facility] 12-07-2023 22:00-0400 Respiratory rate 18 /min DO Luciana Jose Work Phone: [facility] 12-07-2023 22:00-0400 Systolic blood pressure 149 mm[Hg] DO Luciana Jose Work Phone: [facility] 12-07-2023 10:58-0400 Body mass index (BMI) [Ratio] 31 kg/m2 DO Luciana Jose Work Phone: [facility] 12-07-2023 10:58-0400 Body temperature 98 [degF] DO Luciana Jose Work Phone: [facility] 12-07-2023 10:58-0400 Body weight 92.53 kg DO Luciana Jose Work Phone: [facility] 12-07-2023 10:58-0400 Diastolic blood pressure 97 mm[Hg] DO Luciana Jose Work Phone: [facility] 12-07-2023 10:58-0400 Heart rate 63 /min DO Luciana Jose Work Phone: [facility] 12-07-2023 10:58-0400 SaO2% (BldA) [Mass fraction] 99 % DO Luciana Jose Work Phone: [facility] 12-07-2023 10:58-0400 Systolic blood pressure 161 mm[Hg] DO Luciana Jose Work Phone: [facility] 11-30-2023 11:19-0400 Body mass index (BMI) [Ratio] 31.2 kg/m2 DO Luciana Jose Work Phone: [facility] 11-30-2023 11:19-0400 Body temperature 97.6 [degF] DO Luciana Jose Work Phone: [facility] 11-30-2023 11:19-0400 Body weight 93.24 kg DO Luciana Jose Work Phone: [facility] 11-30-2023 11:19-0400 Diastolic blood pressure 101 mm[Hg] DO Luciana Jose Work Phone: [facility] 11-30-2023 11:19-0400 Heart rate 67 /min DO Luciana Jose Work Phone: [facility] 11-30-2023 11:19-0400 Respiratory rate 18 /min DO Luciana Jose Work Phone: [facility] 11-30-2023 11:19-0400 SaO2% (BldA) [Mass fraction] 100 % DO Luciana Jose Work Phone: [facility] 11-30-2023 11:19-0400 Systolic blood pressure 202 mm[Hg] DO Luciana Jose Work Phone: [facility] 11-03-2023 13:30-0500 Diastolic blood pressure 78 mm[Hg] Dr. Chriss Cruz Work Phone: 5(962)646-770981 [place] [address] 11-03-2023 13:30-0500 Heart rate 65 /min Dr. Chriss Cruz Work Phone: 5(522)926-869069 [place] [address] 11-03-2023 13:30-0500 Respiratory rate 16 /min Dr. Chriss Cruz Work Phone: 4(594)714-499569 [place] [address] 11-03-2023 13:30-0500 SaO2% (BldA) [Mass fraction] 98 % Dr. Chriss Cruz Work Phone: 0(705)464-135269 [place] [address] 11-03-2023 13:30-0500 Systolic blood pressure 187 mm[Hg] Dr. Chriss Cruz Work Phone: 4(249)015-739269 [place] [address] 10-16-2023 11:11-0500 Body temperature 97.6 [degF] Dr. Chriss Cruz Work Phone: 8(650)305-257169 [place] [address] 10-16-2023 11:11-0500 Diastolic blood pressure 64 mm[Hg] Dr. Chriss Cruz Work Phone: 8(780)894-708769 [place] [address] 10-16-2023 11:11-0500 Heart rate 64 /min Dr. Chriss Cruz Work Phone: 9(707)037-835869 [place] [address] 10-16-2023 11:11-0500 Respiratory rate 16 /min Dr. Chriss Cruz Work Phone: 0(581)059-086169 [place] [address] 10-16-2023 11:11-0500 SaO2% (BldA) [Mass fraction] 99 % Dr. Chriss Cruz Work Phone: 5(888)021-028769 [place] [address] 10-16-2023 11:11-0500 Systolic blood pressure 170 mm[Hg] Dr. Chriss Cruz Work Phone: 9(484)554-347969 [place] [address] 10-16-2023 08:35-0500 Body height 172.[address] Chriss Cruz Work Phone: 4(260)136-227369 [place] [address] 10-16-2023 08:35-0500 Body mass index (BMI) [Ratio] 32.7 kg/m2 Dr. Chriss Cruz Work Phone: 2(933)259-341569 [place] [address] 10-16-2023 08:35-0500 Body weight 97.[address] Chriss Cruz Work Phone: 9(257)460-200569 [place] [address] 08-09-2023 14:34-0500 Diastolic blood pressure 89 mm[Hg] Dr. Chriss Cruz Work Phone: 9(154)385-485069 [place] [address] 08-09-2023 14:34-0500 Heart rate 72 /min Dr. Chriss Cruz Work Phone: 9(115)740-407769 [place] [address] 08-09-2023 14:34-0500 Respiratory rate 14 /min Dr. Chriss Cruz Work Phone: 7(197)201-223669 [place] [address] 08-09-2023 14:34-0500 SaO2% (BldA) [Mass fraction] 99 % Dr. Chriss Cruz Work Phone: 7(029)490-116869 [place] [address] 08-09-2023 14:34-0500 Systolic blood pressure 178 mm[Hg] Dr. Chriss Cruz Work Phone: 9(207)227-190669 [place] [address] 08-09-2023 13:35-0500 Body height 172.[address] Chriss Cruz Work Phone: 0(882)019-611769 [place] [address] 08-09-2023 13:35-0500 Body mass index (BMI) [Ratio] 32.6 kg/m2 Dr. Chriss Cruz Work Phone: 9(096)827-848269 [place] [address] 08-09-2023 13:35-0500 Body temperature 98.4 [degF] Dr. Chriss Cruz Work Phone: 5(497)813-117769 [place] [address] 08-09-2023 13:35-0500 Body weight 97.[address] Chriss Cruz Work Phone: 6(293)045-852969 [place] [address] 08-02-2023 07:55-0500 Body temperature 97.6 [degF] Dr. Chriss Cruz Work Phone: 4(092)034-696969 [place] [address] 08-02-2023 07:55-0500 Diastolic blood pressure 91 mm[Hg] Dr. Chriss Cruz Work Phone: 3(972)548-897469 [place] [address] 08-02-2023 07:55-0500 Heart rate 73 /min Dr. Chriss Cruz Work Phone: 4(302)883-439569 [place] [address] 08-02-2023 07:55-0500 Respiratory rate 16 /min Dr. Chriss Cruz Work Phone: 8(160)276-246669 [place] [address] 08-02-2023 07:55-0500 SaO2% (BldA) [Mass fraction] 99 % Dr. Chriss Cruz Work Phone: 7(584)018-771669 [place] [address] 08-02-2023 07:55-0500 Systolic blood pressure 155 mm[Hg] Dr. Chriss Cruz Work Phone: 3(471)944-358869 [place] [address] 08-02-2023 06:54-0500 Body height 172.[address] Chriss Cruz Work Phone: 6(279)751-841069 [place] [address] 08-02-2023 06:54-0500 Body mass index (BMI) [Ratio] 32.5 kg/m2 Dr. Chriss Cruz Work Phone: 8(775)923-480569 [place] [address] 08-02-2023 06:54-0500 Body weight [address] Chriss Cruz Work Phone: 7(867)385-215969 [place] [address] 07-12-2023 09:51-0500 Body height 172.[address] Chriss Cruz Work Phone: 6(995)775-359569 [place] [address] 07-12-2023 09:51-0500 Body mass index (BMI) [Ratio] 33 kg/m2 Dr. Chriss Cruz Work Phone: 9(900)135-502561 [address] 07-12-2023 09:51-0500 Body temperature 98.6 [degF] Dr. Chriss Cruz Work Phone: 1(276)245-763469 [place] [address] 07-12-2023 09:51-0500 Body weight 98.[address] Chriss Cruz Work Phone: 1(482)189-900669 [place] [address] 07-12-2023 09:51-0500 Diastolic blood pressure 80 mm[Hg] Dr. Chriss Cruz Work Phone: 4(299)064-175781 [place] [address] 07-12-2023 09:51-0500 Heart rate 77 /min Dr. Chriss Cruz Work Phone: [facility] 07-12-2023 09:51-0500 Respiratory rate 17 /min Dr. Chriss Cruz Work Phone: [facility] 07-12-2023 09:51-0500 SaO2% (BldA) [Mass fraction] 99 % Dr. Chriss Cruz Work Phone: [facility] 07-12-2023 09:51-0500 Systolic blood pressure 161 mm[Hg] Dr. Chriss Cruz Work Phone: [facility] 06-23-2023 15:26-0400 Diastolic blood pressure 88 mm[Hg] [facility] [employer]PER[employer]OR Work Phone: [facility] 06-23-2023 15:26-0400 Systolic blood pressure 162 mm[Hg] Candy [facility] ENVELOPE ADDRESSER.[employer]LOOR SUPERVISOR Work Phone: [facility] 06-23-2023 14:58-0400 Body height 172.7 [facility]OPE AD[facility]ESSER.[employer]LO[employer] SUPERVISOR Work Phone: [facility] 06-23-2023 14:58-0400 Body weight 97.5 kg [facility] ENVELOPE ADDRESSER.[employer]LOOR SUPERVISOR Work Phone: [facility] 06-23-2023 14:58-0400 Heart rate 71 /min [facility] ENVELOPE ADDRESSER.[employer] FLOOR SUPERVISOR Work Phone: [facility] 06-23-2023 14:58-0400 SaO2% (BldA) [Mass fraction] 99 % [facility].[employer]LO[employer] SUPERVISOR Work Phone: [facility] 06-07-2023 11:21-0400 Body mass index (BMI) [Ratio] 32.3 kg/m2 Dr. Chriss Cruz Work Phone: [facility] 06-07-2023 11:21-0400 Body temperature 98.8 [degF] Dr. Chriss Cruz Work Phone: [facility] 06-07-2023 11:21-0400 Body weight 96.[address] Chriss Cruz Work Phone: 8(804)461-216881 [place] [address] 06-07-2023 11:21-0400 Diastolic blood pressure 89 mm[Hg] Dr. Chriss Cruz Work Phone: 0(757)051-915681 [place] [address] 06-07-2023 11:21-0400 Heart rate 74 /min Dr. Chriss Cruz Work Phone: 3(317)098-807081 [place] [address] 06-07-2023 11:21-0400 Respiratory rate 18 /min Dr. Chriss Cruz Work Phone: 2(148)327-824169 [place] [address] 06-07-2023 11:21-0400 SaO2% (BldA) [Mass fraction] 100 % Dr. Chriss Cruz Work Phone: 0(215)245-123781 [place] [address] 06-07-2023 11:21-0400 Systolic blood pressure 189 mm[Hg] Dr. Chriss Cruz Work Phone: 1(629)570-379469 [place] [address] 05-25-2023 16:49-0400 Diastolic blood pressure 82 mm[Hg] Dr. Chriss Cruz Work Phone: 1(419)593-311869 [place] [address] 05-25-2023 16:49-0400 Systolic blood pressure 172 mm[Hg] Dr. Chriss Cruz Work Phone: 9(819)464-699781 [place] [address] 05-25-2023 16:35-0400 Heart rate 70 /min Dr. Chriss Cruz Work Phone: 9(601)196-914881 [place] [address] 05-25-2023 16:35-0400 Respiratory rate 12 /min Dr. Chriss Cruz Work Phone: 9(037)598-126181 [place] [address] 05-25-2023 16:35-0400 SaO2% (BldA) [Mass fraction] 98 % Dr. Chriss Cruz Work Phone: 6(312)900-884281 [place] [address] 05-25-2023 11:53-0400 Body mass index (BMI) [Ratio] 32.8 kg/m2 Dr. Chriss Cruz Work Phone: 8(562)520-969081 [place] [address] 05-25-2023 11:53-0400 Body temperature 97.4 [degF] Dr. Chriss Cruz Work Phone: 7(225)599-605081 [place] [address] 05-25-2023 11:53-0400 Body weight 97.[address] Chriss Cruz Work Phone: 0(916)581-950769 [place] [address] 05-25-2023 11:23-0400 Body mass index (BMI) [Ratio] 32.8 kg/m2 Dr. Chriss Cruz Work Phone: 0(649)049-875169 [place] [address] 05-25-2023 11:23-0400 Body temperature 98.9 [degF] Dr. Chriss Cruz Work Phone: 3(687)062-902769 [place] [address] 05-25-2023 11:23-0400 Body weight 98.[address] Chriss Cruz Work Phone: 8(207)994-163269 [place] [address] 05-25-2023 11:23-0400 Diastolic blood pressure 104 mm[Hg] Dr. Chriss Cruz Work Phone: 6(170)326-893669 [place] [address] 05-25-2023 11:23-0400 Heart rate 63 /min Dr. Chriss Cruz Work Phone: 1(179)057-505869 [place] [address] 05-25-2023 11:23-0400 Respiratory rate 18 /min Dr. Chriss Cruz Work Phone: 5(549)319-850269 [place] [address] 05-25-2023 11:23-0400 SaO2% (BldA) [Mass fraction] 99 % Dr. Chriss Cruz Work Phone: 6(207)651-745569 [place] [address] 05-25-2023 11:23-0400 Systolic blood pressure 216 mm[Hg] Dr. Chriss Cruz Work Phone: 8(141)246-077869 [place] [address] 05-22-2023 16:01-0400 Diastolic blood pressure 65 mm[Hg] Dr. Chriss Cruz Work Phone: 9(805)457-016569 [place] [address] 05-22-2023 16:01-0400 Heart rate 78 /min Dr. Chriss Cruz Work Phone: 6(126)322-998969 [place] [address] 05-22-2023 16:01-0400 Systolic blood pressure 165 mm[Hg] Dr. Chriss Cruz Work Phone: 3(726)059-284269 [place] [address] 05-22-2023 15:33-0400 Body temperature 97.6 [degF] Dr. Chriss Cruz Work Phone: 7(714)709-521469 [place] [address] 05-22-2023 15:33-0400 Respiratory rate 16 /min Dr. Chriss Cruz Work Phone: 4(996)066-424669 [place] [address] 05-22-2023 15:33-0400 SaO2% (BldA) [Mass fraction] 100 % Dr. Chriss Cruz Work Phone: 9(314)908-135169 [place] [address] 05-22-2023 13:30-0400 Body mass index (BMI) [Ratio] 32.1 kg/m2 Dr. Chriss Cruz Work Phone: 1(493)295-997969 [place] [address] 05-11-2023 12:58-0400 Body mass index (BMI) [Ratio] 32.1 kg/m2 Dr. Chriss Cruz Work Phone: 3(992)977-290069 [place] [address] 05-11-2023 12:58-0400 Body temperature 98.6 [degF] Dr. Chriss Cruz Work Phone: 0(556)864-539569 [place] [address] 05-11-2023 12:58-0400 Body weight 95.[address] Chriss Cruz Work Phone: 1(190)812-703869 [place] [address] 05-11-2023 12:58-0400 Diastolic blood pressure 85 mm[Hg] Dr. Chriss Cruz Work Phone: 3(211)169-383669 [place] [address] 05-11-2023 12:58-0400 Heart rate 70 /min Dr. Chriss Cruz Work Phone: 6(285)253-380869 [place] [address] 05-11-2023 12:58-0400 Respiratory rate 18 /min Dr. Chriss Cruz Work Phone: 1(387)367-865369 [place] [address] 05-11-2023 12:58-0400 SaO2% (BldA) [Mass fraction] 100 % Dr. Chriss Cruz Work Phone: 4(641)654-560469 [place] [address] 05-11-2023 12:58-0400 Systolic blood pressure 170 mm[Hg] Dr. Chriss Cruz Work Phone: 2(619)282-893069 [place] [address] 05-03-2023 10:15-0400 Body mass index (BMI) [Ratio] 32.7 kg/m2 Dr. Chriss Cruz Work Phone: 2(191)371-568669 [place] [address] 05-03-2023 10:15-0400 Body temperature 98.2 [degF] Dr. Chriss Cruz Work Phone: 5(090)012-843969 [place] [address] 05-03-2023 10:15-0400 Body weight 97.[address] Chriss Cruz Work Phone: 4(884)077-780969 [place] [address] 05-03-2023 10:15-0400 Diastolic blood pressure 84 mm[Hg] Dr. Chriss Cruz Work Phone: 3(456)784-138569 [place] [address] 05-03-2023 10:15-0400 Heart rate 72 /min Dr. Chriss Cruz Work Phone: 3(530)450-156369 [place] [address] 05-03-2023 10:15-0400 Respiratory rate 18 /min Dr. Chriss Cruz Work Phone: 9(058)121-259769 [place] [address] 05-03-2023 10:15-0400 SaO2% (BldA) [Mass fraction] 97 % Dr. Chriss Cruz Work Phone: 7(616)411-668769 [place] [address] 05-03-2023 10:15-0400 Systolic blood pressure 172 mm[Hg] Dr. Chriss Cruz Work Phone: 2(387)289-256769 [place] [address] 04-27-2023 14:34-0400 Diastolic blood pressure 88 mm[Hg] Dr. Chriss Cruz Work Phone: 2(151)263-457069 [place] [address] 04-27-2023 14:34-0400 Systolic blood pressure 158 mm[Hg] Dr. Chriss Cruz Work Phone: 6(308)850-262569 [place] [address] 04-27-2023 13:59-0400 Body mass index (BMI) [Ratio] 31.9 kg/m2 Dr. Chriss Cruz Work Phone: 8(126)481-907169 [place] [address] 04-27-2023 13:59-0400 Body temperature 98.6 [degF] Dr. Chriss Cruz Work Phone: 5(077)136-705169 [place] [address] 04-27-2023 13:59-0400 Body weight 95.[address] Chriss Cruz Work Phone: 0(633)379-182781 [place] [address] 04-27-2023 13:59-0400 Heart rate 71 /min Dr. Chriss Cruz Work Phone: 2(057)873-466469 [place] [address] 04-27-2023 13:59-0400 Respiratory rate 18 /min Dr. Chriss Cruz Work Phone: 6(715)427-156069 [place] [address] 04-27-2023 13:59-0400 SaO2% (BldA) [Mass fraction] 99 % Dr. Chriss Cruz Work Phone: 8(530)527-718069 [place] [address] 03-16-2023 14:29-0400 Body height 172.[address] Chriss Cruz Work Phone: 8(018)671-317769 [place] [address] 03-16-2023 14:27-0400 Body mass index (BMI) [Ratio] 32.5 kg/m2 Dr. Chriss Cruz Work Phone: 1(974)995-569269 [place] [address] 03-16-2023 14:27-0400 Body temperature 97.4 [degF] Dr. Chriss Cruz Work Phone: 7(783)892-901669 [place] [address] 03-16-2023 14:27-0400 Body weight 97.[address] Chriss Cruz Work Phone: 2(387)493-532469 [place] [address] 03-16-2023 14:27-0400 Diastolic blood pressure 82 mm[Hg] Dr. Chriss Cruz Work Phone: 8(962)556-560869 [place] [address] 03-16-2023 14:27-0400 Heart rate 66 /min Dr. Chriss Cruz Work Phone: 1(357)542-099969 [place] [address] 03-16-2023 14:27-0400 Respiratory rate 16 /min Dr. Chriss Cruz Work Phone: 5(542)353-391269 [place] [address] 03-16-2023 14:27-0400 SaO2% (BldA) [Mass fraction] 99 % Dr. Chriss Cruz Work Phone: 1(889)427-574269 [place] [address] 03-16-2023 14:27-0400 Systolic blood pressure 178 mm[Hg] Dr. Chriss Cruz Work Phone: 5(744)375-848369 [place] [address] 02-14-2023 14:37-0400 Body temperature 97.4 [degF] Dr. Chriss Cruz Work Phone: [facility] 02-14-2023 14:37-0400 Diastolic blood pressure 84 mm[Hg] Dr. Chriss Cruz Work Phone: [facility] 02-14-2023 14:37-0400 Heart rate 70 /min Dr. Chriss Cruz Work Phone: [facility] 02-14-2023 14:37-0400 Respiratory rate 16 /min Dr. Chriss Cruz Work Phone: [facility] 02-14-2023 14:37-0400 Systolic blood pressure 159 mm[Hg] Dr. Chriss Cruz Work Phone: [facility] 02-01-2023 10:26-0400 Body height 172.7 cm Chriss Cruz MD Work Phone: [facility] 02-01-2023 10:26-0400 Body weight 96.16 kg Chriss Cruz MD Work Phone: [facility] 02-01-2023 10:26-0400 Diastolic blood pressure 82 mm[Hg] Chriss Cruz MD Work Phone: [facility] 02-01-2023 10:26-0400 Heart rate 68 /min Chriss Cruz MD Work Phone: [facility] 02-01-2023 10:26-0400 SaO2% (BldA) [Mass fraction] 97 % Chriss Cruz MD Work Phone: [facility] 02-01-2023 10:26-0400 Systolic blood pressure 164 mm[Hg] Chriss Cruz MD Work Phone: [facility] 01-31-2023 10:59-0400 Body mass index (BMI) [Ratio] 32.5 kg/m2 Dr. Chriss Cruz Work Phone: [facility] 01-31-2023 10:59-0400 Body temperature 97.9 [degF] Dr. Chriss Cruz Work Phone: 7(021)456-971781 [place] [address] 01-31-2023 10:59-0400 Body weight 97.[address] Chriss Cruz Work Phone: 8(350)693-387869 [place] [address] 01-31-2023 10:59-0400 Diastolic blood pressure 75 mm[Hg] Dr. Chriss Cruz Work Phone: 3(368)546-424569 [place] [address] 01-31-2023 10:59-0400 Heart rate 69 /min Dr. Chriss Cruz Work Phone: 4(282)896-153469 [place] [address] 01-31-2023 10:59-0400 Respiratory rate 16 /min Dr. Chriss Cruz Work Phone: 9(209)534-693569 [place] [address] 01-31-2023 10:59-0400 SaO2% (BldA) [Mass fraction] 99 % Dr. Chriss Cruz Work Phone: 5(429)318-224969 [place] [address] 01-31-2023 10:59-0400 Systolic blood pressure 174 mm[Hg] Dr. Chriss Cruz Work Phone: 2(386)841-992469 [place] [address] 01-30-2023 09:07-0400 Body mass index (BMI) [Ratio] 32.5 kg/m2 Dr. Chriss Cruz Work Phone: 5(229)738-594069 [place] [address] 01-30-2023 09:07-0400 Body temperature 986 [degF] Dr. Chriss Cruz Work Phone: 8(911)488-125569 [place] [address] 01-30-2023 09:07-0400 Body weight 97.[address] Chriss Cruz Work Phone: 8(013)452-927081 [place] [address] 01-30-2023 09:07-0400 Diastolic blood pressure 98 mm[Hg] Dr. Chriss Cruz Work Phone: 8(425)512-224569 [place] [address] 01-30-2023 09:07-0400 Heart rate 71 /min Dr. Chriss Cruz Work Phone: 7(718)816-469781 [place] [address] 01-30-2023 09:07-0400 Respiratory rate 16 /min Dr. Chriss Cruz Work Phone: 0(379)371-646881 [place] [address] 01-30-2023 09:07-0400 SaO2% (BldA) [Mass fraction] 98 % Dr. Chriss Cruz Work Phone: 2(659)031-955969 [place] [address] 01-30-2023 09:07-0400 Systolic blood pressure 158 mm[Hg] Dr. Chriss Cruz Work Phone: 6(485)846-992369 [place] [address] 01-17-2023 14:23-0400 Body mass index (BMI) [Ratio] 32.3 kg/m2 Dr. Chriss Cruz Work Phone: 6(258)888-660069 [place] [address] 01-14-2023 04:55-0400 Heart rate 68 /min Dr. Chriss Cruz Work Phone: 3(845)533-900169 [place] [address] 01-14-2023 04:55-0400 Respiratory rate 15 /min Dr. Chriss Cruz Work Phone: 6(228)140-193669 [place] [address] 01-14-2023 04:55-0400 SaO2% (BldA) [Mass fraction] 99 % Dr. Chriss Cruz Work Phone: 4(222)391-620369 [place] [address] 01-14-2023 04:27-0400 Body mass index (BMI) [Ratio] 32.6 kg/m2 Dr. Chriss Cruz Work Phone: 2(438)910-220369 [place] [address] 01-14-2023 04:27-0400 Body temperature 97.9 [degF] Dr. Chriss Cruz Work Phone: 9(758)780-777869 [place] [address] 01-14-2023 04:27-0400 Body weight 97.[address] Chriss Cruz Work Phone: 2(208)552-198269 [place] [address] 01-14-2023 04:27-0400 Diastolic blood pressure 98 mm[Hg] Dr. Chriss Cruz Work Phone: 8(185)092-833769 [place] [address] 01-14-2023 04:27-0400 Systolic blood pressure 217 mm[Hg] Dr. Chriss Cruz Work Phone: 5(001)974-673969 [place] [address] 01-03-2023 14:37-0400 Body mass index (BMI) [Ratio] 32.8 kg/m2 Dr. Chriss Cruz Work Phone: 0(079)966-328569 [place] [address] 01-03-2023 14:37-0400 Body temperature 98.4 [degF] Dr. Chriss Cruz Work Phone: [facility] 01-03-2023 14:37-0400 Body weight 98.[address] Chriss Cruz Work Phone: [facility] 01-03-2023 14:37-0400 Diastolic blood pressure 90 mm[Hg] Dr. Chriss Cruz Work Phone: [facility] 01-03-2023 14:37-0400 Heart rate 71 /min Dr. Chriss Cruz Work Phone: [facility] 01-03-2023 14:37-0400 Respiratory rate 16 /min Dr. Chriss Cruz Work Phone: [facility] 01-03-2023 14:37-0400 SaO2% (BldA) [Mass fraction] 99 % Dr. Chriss Cruz Work Phone: [facility] 01-03-2023 14:37-0400 Systolic blood pressure 191 mm[Hg] Dr. Chriss Cruz Work Phone: [facility] 12-29-2022 09:36-0400 Body height 172.7 cm Chriss Cruz MD Work Phone: [facility] 12-29-2022 09:36-0400 Body weight 97.52 kg Chriss Cruz MD Work Phone: [facility] 12-29-2022 09:36-0400 Diastolic blood pressure 90 mm[Hg] Chriss Cruz MD Work Phone: [facility] 12-29-2022 09:36-0400 Heart rate 76 /min Chriss Cruz MD Work Phone: [facility] 12-29-2022 09:36-0400 SaO2% (BldA) [Mass fraction] 99 % Chriss Cruz MD Work Phone: [facility] 12-29-2022 09:36-0400 Systolic blood pressure 170 mm[Hg] Chriss Cruz MD Work Phone: [facility] 12-06-2022 14:51-0400 Body mass index (BMI) [Ratio] 32.7 kg/m2 Dr. Chriss Cruz Work Phone: [facility] 12-06-2022 14:51-0400 Body temperature 98.6 [degF] Dr. Chriss Cruz Work Phone: [facility] 12-06-2022 14:51-0400 Body weight 97.[address] Chriss Cruz Work Phone: [facility] 12-06-2022 14:51-0400 Diastolic blood pressure 69 mm[Hg] Dr. Chriss Cruz Work Phone: [facility] 12-06-2022 14:51-0400 Heart rate 72 /min Dr. Chriss Cruz Work Phone: [facility] 12-06-2022 14:51-0400 Respiratory rate 17 /min Dr. Chriss Cruz Work Phone: [facility] 12-06-2022 14:51-0400 SaO2% (BldA) [Mass fraction] 99 % Dr. Chriss Cruz Work Phone: [facility] 12-06-2022 14:51-0400 Systolic blood pressure 161 mm[Hg] Dr. Chriss Cruz Work Phone: [facility] 12-01-2022 10:15-0400 Body weight 97.61 kg Chriss Cruz MD Work Phone: [facility] 12-01-2022 10:15-0400 Diastolic blood pressure 74 mm[Hg] Chriss Cruz MD Work Phone: [facility] 12-01-2022 10:15-0400 Heart rate 75 /min Chriss Cruz MD Work Phone: [facility] 12-01-2022 10:15-0400 Respiratory rate 16 /min Chriss Cruz MD Work Phone: [facility] 12-01-2022 10:15-0400 SaO2% (BldA) [Mass fraction] 99 % Chriss Cruz MD Work Phone: [facility] 12-01-2022 10:15-0400 Systolic blood pressure 136 mm[Hg] Chriss Cruz MD Work Phone: [facility] 11-26-2022 15:40-0400 Body temperature 98.1 [degF] Dr. Chriss Cruz Work Phone: [facility] 11-26-2022 15:40-0400 Diastolic blood pressure 79 mm[Hg] Dr. Chriss Cruz Work Phone: 2(639)192-351681 [place] [address] 11-26-2022 15:40-0400 Heart rate 79 /min Dr. Chriss Cruz Work Phone: 2(564)946-371881 [place] [address] 11-26-2022 15:40-0400 Respiratory rate 16 /min Dr. Chriss Cruz Work Phone: [facility] 11-26-2022 15:40-0400 SaO2% (BldA) [Mass fraction] 99 % Dr. Chriss Cruz Work Phone: 9(337)036-717181 [place] [address] 11-26-2022 15:40-0400 Systolic blood pressure 148 mm[Hg] Dr. Chriss Cruz Work Phone: 8(258)407-450869 [place] [address] 11-26-2022 06:00-0400 Body mass index (BMI) [Ratio] 32.2 kg/m2 Dr. Chriss Cruz Work Phone: 2(155)392-214981 [place] [address] 11-26-2022 06:00-0400 Body weight 96.[address] Chriss Cruz Work Phone: 9(215)141-190581 [place] [address] 11-24-2022 15:05-0400 Body height [address] Chriss Cruz Work Phone: 6(720)441-556981 [place] [address] 11-23-2022 12:48-0400 Diastolic blood pressure 68 mm[Hg] Dr. Chriss Cruz Work Phone: 4(981)712-067281 [place] [address] 11-23-2022 12:48-0400 Heart rate 71 /min Dr. Chriss Cruz Work Phone: 8(034)056-270781 [place] [address] 11-23-2022 12:48-0400 Systolic blood pressure 119 mm[Hg] Dr. Chriss Cruz Work Phone: 8(527)007-074269 [place] [address] 11-23-2022 12:30-0400 Body temperature 97.6 [degF] Dr. Chriss Cruz Work Phone: 3(964)008-576669 [place] [address] 11-23-2022 12:30-0400 Respiratory rate 14 /min Dr. Chriss Cruz Work Phone: 7(665)560-583069 [place] [address] 11-23-2022 12:30-0400 SaO2% (BldA) [Mass fraction] 100 % Dr. Chriss Cruz Work Phone: 0(112)843-474869 [place] [address] 11-23-2022 11:07-0400 Body height [address] Chrsis Cruz Work Phone: 8(208)818-725069 [place] [address] 11-23-2022 11:07-0400 Body mass index (BMI) [Ratio] 32.8 kg/m2 Dr. Chriss Cruz Work Phone: 8(240)849-995669 [place] [address] 11-23-2022 11:07-0400 Body weight 98.[address] Chriss Cruz Work Phone: 7(092)893-498969 [place] [address] 11-22-2022 13:52-0400 Body mass index (BMI) [Ratio] 32.3 kg/m2 Dr. Chriss Cruz Work Phone: 7(223)754-904069 [place] [address] 11-22-2022 13:52-0400 Body temperature 97.8 [degF] Dr. Chriss Cruz Work Phone: 5(166)834-837769 [place] [address] 11-22-2022 13:52-0400 Body weight 96.[address] Chriss Cruz Work Phone: 3(504)474-590869 [place] [address] 11-22-2022 13:52-0400 Diastolic blood pressure 80 mm[Hg] Dr. Chriss Cruz Work Phone: 4(750)673-453369 [place] [address] 11-22-2022 13:52-0400 Heart rate 69 /min Dr. Chriss Cruz Work Phone: 2(415)537-398669 [place] [address] 11-22-2022 13:52-0400 Respiratory rate 18 /min Dr. Chriss Cruz Work Phone: 5(917)124-602469 [place] [address] 11-22-2022 13:52-0400 SaO2% (BldA) [Mass fraction] 100 % Dr. Chriss Cruz Work Phone: 9(812)836-646169 [place] [address] 11-22-2022 13:52-0400 Systolic blood pressure 159 mm[Hg] Dr. Chriss Cruz Work Phone: 2(255)874-650969 [place] [address] 11-02-2022 14:36-0500 Body height 172.[address] Chriss Cruz Work Phone: 5(876)694-861969 [place] [address] 11-02-2022 14:34-0500 Body mass index (BMI) [Ratio] 32.2 kg/m2 Dr. Chriss Cruz Work Phone: 3(246)143-632169 [place] [address] 11-02-2022 14:34-0500 Body temperature 97.8 [degF] Dr. Chriss Cruz Work Phone: 8(193)766-610769 [place] [address] 11-02-2022 14:34-0500 Body weight 96.[address] Chriss Cruz Work Phone: 9(786)520-168869 [place] [address] 11-02-2022 14:34-0500 Diastolic blood pressure 83 mm[Hg] Dr. Chriss Cruz Work Phone: 1(162)284-491669 [place] [address] 11-02-2022 14:34-0500 Heart rate 65 /min Dr. Chriss Cruz Work Phone: 2(210)635-853469 [place] [address] 11-02-2022 14:34-0500 Respiratory rate 17 /min Dr. Chriss Cruz Work Phone: 6(091)861-159369 [place] [address] 11-02-2022 14:34-0500 SaO2% (BldA) [Mass fraction] 100 % Dr. Chriss Cruz Work Phone: 1(575)196-900669 [place] [address] 11-02-2022 14:34-0500 Systolic blood pressure 146 mm[Hg] Dr. Chriss Cruz Work Phone: 1(851)890-468669 [place] [address] 11-02-2022 08:25-0500 Body mass index (BMI) [Ratio] 32.3 kg/m2 Dr. Chriss Cruz Work Phone: 2(058)[phone] [place] [address] 11-02-2022 08:25-0500 Body temperature 98.6 [degF] Dr. Chriss Cruz Work Phone: [facility] 11-02-2022 08:25-0500 Body weight 96.[address] Chriss Cruz Work Phone: [facility] 11-02-2022 08:25-0500 Diastolic blood pressure 78 mm[Hg] Dr. Chriss Cruz Work Phone: [facility] 11-02-2022 08:25-0500 Heart rate 69 /min Dr. Chriss Cruz Work Phone: [facility] 11-02-2022 08:25-0500 Respiratory rate 16 /min Dr. Chriss Cruz Work Phone: [facility] 11-02-2022 08:25-0500 SaO2% (BldA) [Mass fraction] 99 % Dr. Chriss Cruz Work Phone: [facility] 11-02-2022 08:25-0500 Systolic blood pressure 140 mm[Hg] Dr. Chriss Cruz Work Phone: [facility] 10-06-2022 13:17-0500 Diastolic blood pressure 79 mm[Hg] Chriss Cruz MD Work Phone: [facility] 10-06-2022 13:17-0500 Systolic blood pressure 166 mm[Hg] Chriss Cruz MD Work Phone: [facility] 10-06-2022 13:07-0500 Body weight 103.42 kg Chriss Cruz MD Work Phone: [facility] 10-06-2022 13:07-0500 Heart rate 81 /min Chriss Cruz MD Work Phone: [facility] 10-06-2022 13:07-0500 SaO2% (BldA) [Mass fraction] 98 % Chriss Cruz MD Work Phone: [facility] 09-20-2022 15:23-0500 Diastolic blood pressure 100 mm[Hg] Candy Penn APRN.CNP Work Phone: [facility] 09-20-2022 15:23-0500 Systolic blood pressure 160 mm[Hg] [facility] ENVELOPE ADDRESSER.[employer] FLOOR SUPERVISOR Work Phone: [facility] 09-20-2022 14:58-0500 Body height 172.8 cm [facility] ENVELOPE ADDRESSER.[employer] FLOOR SUPERVISOR Work Phone: [facility] 09-20-2022 14:58-0500 Body weight 98.61 kg [facility] ENVELOPE ADDRESSER.[employer] FLOOR SUPERVISOR Work Phone: [facility] 09-20-2022 14:58-0500 Heart rate 90 /min [facility] ENVELOPE ADDRESSER.[employer] FLOOR SUPERVISOR Work Phone: [facility] 09-20-2022 14:58-0500 Respiratory rate 16 /min [facility] ENVELOPE ADDRESSER.[employer] FLOOR SUPERVISOR Work Phone: [facility] 09-20-2022 14:58-0500 SaO2% (BldA) [Mass fraction] 100 % [facility] ENVELOPE ADDRESSER.[employer] FLOOR SUPERVISOR Work Phone: [facility] 08-22-2022 10:20-0500 Body temperature 97 [degF] Ruma Ortiz APRN.[employer] FLOOR SUPERVISOR Work Phone: [facility] 08-22-2022 10:20-0500 Body weight 102.69 kg Ruma Ortiz APRN.[employer] SUPERVISOR Work Phone: [facility] 08-22-2022 10:20-0500 Diastolic blood pressure 84 mm[Hg] Ruma Ortiz APRN.[employer] F[employer] SUPERVISOR Work Phone: [facility] 08-22-2022 10:20-0500 Heart rate 76 /min Ruma Ortiz APRN.[employer] F[employer] SUPERVISOR Work Phone: [facility] 08-22-2022 10:20-0500 Respiratory rate 20 /min Ruma Ortiz APRN.[employer] SUPERVISOR Work Phone: [facility] 08-22-2022 10:20-0500 SaO2% (BldA) [Mass fraction] 96 % Ruma Ortiz ENVELOPE ADDRESSER.[employer] FLOOR SUPERVISOR Work Phone: [facility] 08-22-2022 10:20-0500 Systolic blood pressure 132 mm[Hg] Ruma Ortiz ENVELOPE ADDRESSER.[employer] FLOOR SUPERVISOR Work Phone: [facility] 06-17-2022 14:53-0400 Diastolic blood pressure 76 mm[Hg] [facility] ENVELOPE ADDRESSER.[employer] FLOOR SUPERVISOR Work Phone: [facility] 06-17-2022 14:53-0400 Systolic blood pressure 140 mm[Hg] [facility] ENVELOPE ADDRESSER.[employer] FLOOR SUPERVISOR Work Phone: [facility] 06-17-2022 14:32-0400 Body height 172.7 cm [facility] ENVELOPE ADDRESSER.[employer] FLOOR SUPERVISOR Work Phone: [facility] 06-17-2022 14:32-0400 Body weight 99.79 kg [facility] ENVELOPE ADDRESSER.[employer] FLOOR SUPERVISOR Work Phone: [facility] 06-17-2022 14:32-0400 Heart rate 78 /min [facility] ENVELOPE ADDRESSER.[employer] FLOOR SUPERVISOR Work Phone: [facility] 06-17-2022 14:32-0400 SaO2% (BldA) [Mass fraction] 100 % [facility] ENVELOPE ADDRESSER.[employer] FLOOR SUPERVISOR Work Phone: [facility] 06-02-2022 10:30-0400 Diastolic blood pressure 81 mm[Hg] Mi Nurse Work Phone: [facility] 06-02-2022 10:30-0400 Heart rate 65 /min Mi Nurse Work Phone: [facility] 06-02-2022 10:30-0400 Systolic blood pressure 151 mm[Hg] Mi Nurse Work Phone: [facility] 05-10-2022 13:30-0400 Body height 172.[address] Chriss Cruz Work Phone: [facility] Work Phone: 05-10-2022 13:24-0400 Body mass index (BMI) [Ratio] 33.2 kg/m2 Dr. Chriss Cruz Work Phone: [facility] Work Phone: 05-10-2022 13:24-0400 Body temperature 98.2 [degF] Dr. Chriss Cruz Work Phone: [facility] Work Phone: 05-10-2022 13:24-0400 Body weight 99.[address] Chriss Cruz Work Phone: [facility] Work Phone: 05-10-2022 13:24-0400 Diastolic blood pressure 95 mm[Hg] Dr. Chriss Cruz Work Phone: [facility] Work Phone: 05-10-2022 13:24-0400 Heart rate 78 /min Dr. Chriss Cruz Work Phone: [facility] Work Phone: 05-10-2022 13:24-0400 Respiratory rate 16 /min Dr. Chriss Cruz Work Phone: [facility] Work Phone: 05-10-2022 13:24-0400 SaO2% (BldA) [Mass fraction] 99 % Dr. Chriss Cruz Work Phone: [facility] Work Phone: 05-10-2022 13:24-0400 Systolic blood pressure 172 mm[Hg] Dr. Chriss Cruz Work Phone: [facility] Work Phone: 05-04-2022 09:36-0400 Diastolic blood pressure 88 mm[Hg] Mi Nurse Work Phone: [facility] 05-04-2022 09:36-0400 Heart rate 73 /min Mi Nurse Work Phone: [facility] 05-04-2022 09:36-0400 Systolic blood pressure 151 mm[Hg] Mi Nurse Work Phone: [facility] 03-30-2022 10:52-0400 Body height 172.7 cm Chriss Cruz MD Work Phone: [facility] 03-30-2022 10:52-0400 Body weight 96.98 kg Chriss Cruz MD Work Phone: [facility] 03-30-2022 10:52-0400 Diastolic blood pressure 82 mm[Hg] Chriss Cruz MD Work Phone: [facility] 03-30-2022 10:52-0400 Heart rate 73 /min Chriss Cruz MD Work Phone: [facility] 03-30-2022 10:52-0400 SaO2% (BldA) [Mass fraction] 98 % Chriss Cruz MD Work Phone: [facility] 03-30-2022 10:52-0400 Systolic blood pressure 154 mm[Hg] Chriss Cruz MD Work Phone: [facility] 02-13-2022 16:02-0400 Heart rate 60 /min Dr. Chriss Cruz Work Phone: [facility] Work Phone: 02-13-2022 16:02-0400 Respiratory rate 17 /min Dr. Chriss Cruz Work Phone: [facility] Work Phone: 02-13-2022 16:02-0400 SaO2% (BldA) [Mass fraction] 99 % Dr. Chriss Cruz Work Phone: [facility] Work Phone: 02-13-2022 13:46-0400 Body height 172.[address] Chriss Cruz Work Phone: [facility] Work Phone: 02-13-2022 13:46-0400 Body mass index (BMI) [Ratio] 32.8 kg/m2 Dr. Chriss Cruz Work Phone: [facility] Work Phone: 02-13-2022 13:46-0400 Body temperature 98 [degF] Dr. Chriss Cruz Work Phone: [facility] Work Phone: 02-13-2022 13:46-0400 Body weight 97.[address] Chriss Cruz Work Phone: [facility] Work Phone: 02-13-2022 13:46-0400 Diastolic blood pressure 63 mm[Hg] Dr. Chriss Cruz Work Phone: [facility] Work Phone: 02-13-2022 13:46-0400 Systolic blood pressure 108 mm[Hg] Dr. Chriss Cruz Work Phone: [facility] Work Phone: 02-08-2022 14:41-0400 Body mass index (BMI) [Ratio] 32.4 kg/m2 Dr. Chriss Cruz Work Phone: [facility] Work Phone: 02-08-2022 14:41-0400 Body temperature 98.4 [degF] Dr. Chriss Cruz Work Phone: [facility] Work Phone: 02-08-2022 14:41-0400 Body weight 96.[address] Chriss Cruz Work Phone: [facility] Work Phone: 02-08-2022 14:41-0400 Diastolic blood pressure 85 mm[Hg] Dr. Chriss Cruz Work Phone: [facility] Work Phone: 02-08-2022 14:41-0400 Heart rate 74 /min Dr. Chriss Cruz Work Phone: [facility] Work Phone: 02-08-2022 14:41-0400 Respiratory rate 16 /min Dr. Chriss Cruz Work Phone: [facility] Work Phone: 02-08-2022 14:41-0400 SaO2% (BldA) [Mass fraction] 99 % Dr. Chriss Cruz Work Phone: [facility] Work Phone: 02-08-2022 14:41-0400 Systolic blood pressure 172 mm[Hg] Dr. Chriss Cruz Work Phone: [facility] Work Phone: 02-04-2022 11:17-0400 Body weight 97.98 kg [facility] ENVELOPE ADDRESSER.[employer] FLOOR SUPERVISOR Work Phone: [facility] 02-04-2022 11:17-0400 Diastolic blood pressure 80 mm[Hg] [facility] ENVELOPE ADDRESSER.[employer] FLOOR SUPERVISOR Work Phone: [facility] 02-04-2022 11:17-0400 Heart rate 66 /min [facility] ENVELOPE ADDRESSER.[employer] FLOOR SUPERVISOR Work Phone: [facility] 02-04-2022 11:17-0400 SaO2% (BldA) [Mass fraction] 100 % [facility] ENVELOPE ADDRESSER.[employer] FLOOR SUPERVISOR Work Phone: [facility] 02-04-2022 11:17-0400 Systolic blood pressure 137 mm[Hg] [facility] ENVELOPE ADDRESSER.[facility] Work Phone: [facility] 01-26-2022 06:48-0400 Diastolic blood pressure 70 mm[Hg] [facility] Work Phone: 01-26-2022 06:48-0400 Heart rate 78 /min [facility] Work Phone: 01-26-2022 06:48-0400 Respiratory rate 16 /min [facility] Work Phone: 01-26-2022 06:48-0400 SaO2% (BldA) [Mass fraction] 99 % [facility] Work Phone: 01-26-2022 06:48-0400 Systolic blood pressure 154 mm[Hg] [facility] Work Phone: 01-26-2022 03:11-0400 Body height 172.72 cm [facility] Work Phone: 01-26-2022 03:11-0400 Body mass index (BMI) [Ratio] 31.9 kg/m2 [facility] Work Phone: 01-26-2022 03:11-0400 Body temperature 98.2 [degF] [facility] Work Phone: 01-26-2022 03:11-0400 Body weight 95.25 kg [facility] Work Phone: 12-14-2021 10:03-0400 Diastolic blood pressure 73 mm[Hg] Nd Nurse Work Phone: [facility] 12-14-2021 10:03-0400 Heart rate 73 /min Nd Nurse Work Phone: [facility] 12-14-2021 10:03-0400 Systolic blood pressure 154 mm[Hg] Nd Nurse Work Phone: [facility] 11-29-2021 17:14-0400 Diastolic blood pressure 84 mm[Hg] [facility] Work Phone: 11-29-2021 17:14-0400 Heart rate 69 /min [facility] Work Phone: 11-29-2021 17:14-0400 Respiratory rate 18 /min [facility] Work Phone: 11-29-2021 17:14-0400 SaO2% (BldA) [Mass fraction] 100 % [facility] Work Phone: 11-29-2021 17:14-0400 Systolic blood pressure 149 mm[Hg] [facility] Work Phone: 11-29-2021 14:13-0400 Body temperature 96.8 [degF] [facility] Work Phone: 11-29-2021 14:10-0400 Body mass index (BMI) [Ratio] 34 kg/m2 [facility] Work Phone: 11-29-2021 14:10-0400 Body weight 101.6 kg [facility] Work Phone: 11-27-2021 14:11-0400 Diastolic blood pressure 69 mm[Hg] [facility] Work Phone: 11-27-2021 14:11-0400 Heart rate 62 /min [facility] Work Phone: 11-27-2021 14:11-0400 Respiratory rate 15 /min [facility] Work Phone: 11-27-2021 14:11-0400 SaO2% (BldA) [Mass fraction] 98 % [facility] Work Phone: 11-27-2021 14:11-0400 Systolic blood pressure 124 mm[Hg] [facility] Work Phone: 11-27-2021 12:10-0400 Body mass index (BMI) [Ratio] 34 kg/m2 [facility] Work Phone: 11-27-2021 12:10-0400 Body temperature 97.1 [degF] [facility] Work Phone: 11-27-2021 12:10-0400 Body weight 101.6 kg [facility] Work Phone: 11-27-2021 10:41-0400 Body weight 101.15 kg Chriss Cruz MD Work Phone: [facility] 11-27-2021 10:41-0400 Diastolic blood pressure 86 mm[Hg] Chriss Cruz MD Work Phone: [facility] 11-27-2021 10:41-0400 Heart rate 68 /min Chriss Cruz MD Work Phone: [facility] 11-27-2021 10:41-0400 SaO2% (BldA) [Mass fraction] 100 % Chriss Cruz MD Work Phone: [facility] 11-27-2021 10:41-0400 Systolic blood pressure 164 mm[Hg] Chriss Cruz MD Work Phone: [facility] 11-24-2021 08:55-0400 Body weight 101.15 kg Chriss Cruz MD Work Phone: [facility] 11-24-2021 08:55-0400 Diastolic blood pressure 100 mm[Hg] Chriss Cruz MD Work Phone: [facility] 11-24-2021 08:55-0400 Heart rate 80 /min Chriss Cruz MD Work Phone: [facility] 11-24-2021 08:55-0400 Respiratory rate 18 /min Chriss Cruz MD Work Phone: [facility] 11-24-2021 08:55-0400 Systolic blood pressure 174 mm[Hg] Chriss Cruz MD Work Phone: [facility] 11-21-2021 12:43-0400 Diastolic blood pressure 83 mm[Hg] [facility] Work Phone: 11-21-2021 12:43-0400 Heart rate 65 /min [facility] Work Phone: 11-21-2021 12:43-0400 Systolic blood pressure 147 mm[Hg] [facility] Work Phone: 11-21-2021 12:08-0400 Body mass index (BMI) [Ratio] 34.3 kg/m2 [facility] Work Phone: 11-21-2021 12:08-0400 Body temperature 96.7 [degF] [facility] Work Phone: 11-21-2021 12:08-0400 Body weight 102.5 kg [facility] Work Phone: 11-21-2021 12:08-0400 Respiratory rate 16 /min [facility] Work Phone: 11-21-2021 12:08-0400 SaO2% (BldA) [Mass fraction] 100 % [facility] Work Phone: 11-19-2021 09:23-0400 Diastolic blood pressure 73 mm[Hg] Mi Nurse Work Phone: [facility] 11-19-2021 09:23-0400 Heart rate 76 /min Mi Nurse Work Phone: [facility] 11-19-2021 09:23-0400 Systolic blood pressure 130 mm[Hg] Mi Nurse Work Phone: [facility] 05-14-2020 11:04-0400 Body temperature 97.8 [degF] [facility] 05-14-2020 11:04-0400 Body weight 96.43 kg [facility] 05-14-2020 11:04-0400 Diastolic blood pressure 88 mm[Hg] [facility] 05-14-2020 11:04-0400 Heart rate 83 /min [facility] 05-14-2020 11:04-0400 Respiratory rate 14 /min [facility] 05-14-2020 11:04-0400 SaO2% (BldA) [Mass fraction] 100 % [facility] 05-14-2020 11:04-0400 Systolic blood pressure 136 mm[Hg] [facility] 10-18-2017 11:20-0500 Body mass index (BMI) [Ratio] 31.8 kg/m2 Dr. Chriss Cruz Work Phone: [facility] 10-18-2017 10:20-0500 Body mass index (BMI) [Ratio] 31.8 kg/m2 [facility] Work Phone: Encounters Encounter Date Encounter Type Care Provider Facility Start: 06-30-2025 ambulatory Chalon Kita Facility:[facility] Start: 06-30-2025 End: 06-30-2025 ambulatory Chalon Kita Facility:[facility] Start: 06-28-2025 ambulatory CHALON KITA Facility:[facility] Start: 06-25-2025 End: 06-25-2025 ambulatory Chalon Kita Facility:[facility] Start: 06-18-2025 End: 06-18-2025 Patient encounter procedure Grisel VALENTINE -[facility] Work Phone: Start: 06-18-2025 End: 06-18-2025 ambulatory Chalmarie Kita Facility:[facility] Start: 06-04-2025 ambulatory Chalmarie East Facility:[facility] Start: 06-04-2025 Non-patient / Non-visit Dr. Kirk Fernandez MD -[facility] Start: 06-04-2025 End: 06-04-2025 Admission to same day surgery center Dr. Kirk Fernandez MD -Produce Sorter/Special Procedures Work Phone: Start: 06-04-2025 End: 06-04-2025 ambulatory Kimberlyn East MD Work Phone: -Produce Sorter/Special Procedures Start: 05-28-2025 ambulatory TYRESEDAYSI LANGE Facility:[facility] Start: 05-07-2025 End: 05-07-2025 Patient encounter procedure Aquiles Warren DO -[facility] Work Phone: Start: 05-07-2025 End: 05-07-2025 ambulatory Kimberlyn East MD Work Phone: -[facility] Start: 05-02-2025 Non-patient / Non-visit Dr. Kirk Fernandez MD -[facility] Start: 05-02-2025 End: 05-02-2025 ambulatory Kimberlyn East MD Work Phone: -Cardiovascular Services Start: 05-02-2025 End: 05-02-[address] Robb Paulson MD -Cardiovascular Services Work Phone: Start: 05-02-2025 End: 05-02-2025 ambulatory Kimberlyn East Facility:[facility] Start: 04-25-2025 ambulatory Jimmie Ibarra Facility:[facility] Start: 04-25-[address] Jimmie Ibarra MD -[facility] Start: 04-23-2025 End: 04-23-2025 Office outpatient visit 25 minutes Lillian Hall DO Work Phone: [facility]enterology [facility] Hepatology [facility] Comment on above: Liver lesion (Primary Dx); Portal hypertension Start: 04-23-2025 ambulatory KIMBERLYN EAST Facility:[facility] Start: 04-23-2025 ambulatory KIMBERLYN KITA Facility:[facility] Start: 04-23-2025 End: 04-23-2025 Subsequent hospital visit by physician Lillian Hall DO Work Phone: [facility] Comment on above: Arrived Start: 04-21-2025 End: 04-21-[address] Robb Paulson MD -[facility] Work Phone: Start: 04-21-2025 End: 04-21-2025 ambulatory Kimberlyn East MD Work Phone: -[facility] Start: 03-12-[address] Jimmie Ibarra MD -[facility] Start: 03-03-2025 Non-patient / Non-visit Dr. Kirk Fernandez MD -[facility] Start: 03-03-2025 End: 03-03-[address] Chriss Cruz MD Work Phone: -Cardiovascular Services Start: 03-03-2025 End: 03-03-2025 Patient encounter procedure Cynthia RIOS -Cardiovascular Services Work Phone: Start: 03-03-2025 End: 03-03-2025 ambulatory Kimberlyn East Facility:[facility] Start: 02-21-2025 End: 02-21-2025 Patient encounter procedure Cynthia RIOS -[facility] Work Phone: Start: 02-21-2025 End: 02-21-2025 ambulatory Kimberlyn East MD Work Phone: [facility] Work Phone: Start: 01-27-2025 End: 01-27-2025 ambulatory AURAAMRIE KITA Facility:[facility] Start: 01-27-2025 End: 01-27-2025 Subsequent hospital visit by physician Evelin Love Work Phone: [facility] Comment on above: Hepatic fibrosis Start: 12-25-2024 ambulatory TYRESE S ANISA Facility:[facility] Start: 12-25-2024 End: 12-25-2024 Office outpatient new 60 minutes Lillian Hall DO Work Phone: Gastroenterology and Hepatology Outpatient [facility] Comment on above: Hepatosplenomegaly (Primary Dx); Liver lesion; Secondary esophageal varices with bleeding Start: 12-25-2024 ambulatory TYRESE LANGE Facility:[facility] Start: 12-20-2024 End: 12-20-2024 ambulatory Chalon Kita Facility:[facility] Start: 12-20-2024 End: 12-20-2024 Patient encounter procedure Cynthia RIOS -[facility] Work Phone: Start: 12-18-2024 End: 12-18-2024 Patient encounter procedure Grisel VALENTINE -[facility] Work Phone: Start: 12-18-2024 End: 12-18-2024 ambulatory Chalon Kita Facility:[facility] Start: 12-13-2024 ambulatory CHALON KITA Facility:[facility] Start: 12-13-2024 Encounter for other preprocedural examination TYRESE LANGE Facility:[facility] Start: 12-13-2024 End: 12-13-2024 Patient encounter status Tyrese PEARL Work Phone: [facility] Work Phone: Start: 12-13-2024 End: 12-13-2024 Subsequent hospital visit by physician Tyrese PEARL Work Phone: [facility] Comment on above: Arrived Start: 12-11-2024 Anes nerve muscle tdn fascia&bursa forearm wrist CHALON KITA Facility:[facility] Start: 12-11-2024 Encounter for preprocedural cardiovascular examination TYRESE Sanya ANISA [facility] Start: 12-11-2024 ambulatory CHALON KITA Facility:[facility] Start: 12-11-2024 End: 12-11-2024 Patient encounter status Tyrese PEARL Work Phone: [facility] Work Phone: Start: 12-11-2024 End: 12-11-2024 Subsequent hospital visit by physician Tyrese PEARL Work Phone: [facility] Comment on above: Arrived Start: 12-09-[address] Jimmie Ibarra MD -[facility] Start: 11-29-2024 End: 11-29-2024 Telephone encounter [facility] Comment on above: Referral - Kidney Txp (NS on 11/20) Start: 11-20-2024 ambulatory Chalon Kita Facility:[facility] Start: 11-20-2024 End: 11-20-2024 Telephone encounter Lurdes Haynes RN [facility] Start: 11-08-2024 End: 11-08-2024 Clinical Support Encounter Tyrese PEARL Work Phone: [facility] Comment on above: Pre-transplant evaluation for kidney tra nsplant (Primary Dx) Start: 11-08-2024 ambulatory CHALON KITA Facility:[facility] Start: 11-08-2024 End: 11-08-2024 Office outpatient new 60 minutes Tyrese PEARL Work Phone: [facility] Comment on above: ESRD (end stage renal disease) on dialys is (Primary Dx); Pre-transplant evaluation for kidney transplant; Diabetic nephropathy associated with type 2 diabetes mellitus Start: 11-08-2024 ambulatory SELF SELF Facility:[facility] Start: 11-08-2024 End: 11-08-2024 Patient encounter status Tyrese PEARL Work Phone: [facility] Start: 11-08-2024 End: 11-08-2024 Subsequent hospital visit by physician Tyrese PEARL Work Phone: [facility] Comment on above: Arrived Start: 10-30-2024 ambulatory Chalon Kita Facility:[facility] Start: 10-30-2024 Non-patient / Non-visit Dr. Kirk Fernandez MD -[facility] Start: 10-30-2024 End: 10-30-2024 Admission to same day surgery center Dr. Kirk Fernandez MD -Produce Sorter/Special Procedures Work Phone: Start: 10-30-2024 End: 10-30-2024 ambulatory Chalon Kita Facility:[facility] Start: 09-30-2024 End: 09-30-2024 ambulatory Chalon Kita Facility:[facility] Start: 09-18-2024 End: 09-18-2024 ambulatory Chalon Kita Facility:[facility] Start: 09-17-2024 End: 09-17-2024 Chart abstracting Dione Love RN [facility] Comment on above: Pre-transplant evaluation for kidney tra nsplant (Primary Dx) Start: 09-17-2024 End: 09-17-2024 Patient encounter status Winnie Cohen MD Work Phone: [facility] Start: 09-13-2024 ambulatory Chalon Kita Facility:[facility] Start: 09-13-2024 End: 09-13-2024 ambulatory Chalon Kita Facility:[facility] Start: 09-12-2024 End: 09-12-2024 Emergency department patient visit Chalon Kita Facility:[facility] Start: 09-11-2024 End: 09-11-2024 Patient encounter status Kidney Txp Coordinators Work Phone: [facility] Start: 09-11-2024 End: 09-11-2024 Telephone encounter [facility]xp Coordinators Work Phone: [facility] Comment on above: Referral - Kidney Txp Start: 08-23-2024 Encounter for other preprocedural examination Kirk Fernandez [facility] Start: 08-14-2024 End: 08-14-2024 ambulatory Chalon Kita Facility:[facility] Start: 08-07-2024 End: 08-07-2024 ambulatory Chalon Kita Facility:[facility] Start: 08-01-2024 ambulatory Chalon Kita Facility:[facility] Start: 07-26-2024 End: 07-26-2024 ambulatory Chalon Kita Facility:[facility] Start: 07-23-2024 ambulatory Chalon Kita Facility:[facility] Start: 07-23-2024 End: 07-23-2024 ambulatory Chalon Kita Facility:[facility] Start: 07-19-2024 End: 07-19-2024 ambulatory Chalon Kita Facility:[facility] Start: 07-16-2024 ambulatory Chalon Kita Facility:[facility] Start: 07-08-2024 ambulatory Chalon Kita Facility:[facility] Start: 07-08-2024 ambulatory Chalon Kita Facility:[facility] Start: 07-05-2024 Evaluation and management of inpatient Chalon Kita Facility:[facility] Start: 07-04-2024 End: 07-04-2024 ambulatory Chalon Kita Facility:[facility] Start: 07-03-2024 ambulatory Chalon Kita Facility:[facility] Start: 07-03-2024 End: 07-03-2024 ambulatory Chalon Kita Facility:[facility] Start: 07-02-2024 ambulatory Landry Barber Facility:[facility] Start: 07-02-2024 End: 07-10-2024 Evaluation and management of inpatient Chalon Kita Facility:[facility] Start: 06-06-2024 End: 06-06-2024 Chart abstracting Chriss Cruz MD Work Phone: [facility] [place] Start: 12-18-2023 End: 12-18-2023 Emergency department patient visit DO Luciana Garcia Work Phone: [facility]-Emergency Department Work Phone: Start: 12-12-2023 End: 12-12-2023 Patient encounter procedure DO Luciana Villaloboser Work Phone: [facility] Work Phone: Start: 12-09-2023 Non-patient / Non-visit DO Luciana Villaloboser Work Phone: [facility] Work Phone: Start: 12-08-2023 Non-patient / Non-visit DO Luciana Villaloboser Work Phone: [facility] Work Phone: Start: 12-07-2023 End: 12-09-2023 Evaluation and management of inpatient DO Luciana Villaloboser Work Phone: [facility]-Progressive Care Unit Work Phone: Start: 12-07-2023 End: 12-07-2023 ambulatory DO Luciana Garcia Work Phone: [facility] Work Phone: Start: 12-07-2023 End: 12-07-2023 Patient encounter procedure DO Luciana Garcia Work Phone: [facility] Work Phone: Start: 11-30-2023 Registered Recurring DO Luciana Garcia Work Phone: [facility] Start: 11-30-2023 End: 11-30-2023 Patient encounter procedure DO Luciana Garcia Work Phone: [facility] Work Phone: Start: 11-03-2023 End: 11-03-[address] Chriss Cruz Work Phone: [facility] Work Phone: Start: 11-03-2023 End: 11-03-[address] Chriss Cruz Work Phone: [facility] Work Phone: Start: 10-16-2023 End: 10-16-2023 Emergency department patient visit Dr. Chriss Cruz Work Phone: [facility]Emer[facility] Work Phone: Start: 09-21-[address] Chriss Cruz Work Phone: [facility] Start: 08-09-2023 End: 08-09-[address] Chriss Cruz Work Phone: [facility] Work Phone: Start: 08-09-2023 End: 08-09-[address] Chriss Cruz Work Phone: [facility] Work Phone: Start: 08-08-2023 End: 08-08-[address] Chriss Cruz Work Phone: [facility] Work Phone: Start: 08-08-2023 End: 08-08-[address] Chriss Cruz Work Phone: [facility] Work Phone: Start: 08-02-2023 Non-patient / Non-visit Dr. Chriss Cruz Work Phone: [facility] Start: 08-02-2023 End: 08-02-2023 Admission to same day surgery center Dr. Chriss Cruz Work Phone: [facility] Work Phone: Start: 08-02-2023 End: 08-02-[address] Chriss Cruz Work Phone: [facility] Work Phone: Start: 07-25-2023 End: 07-25-[address] Chriss Cruz Work Phone: [facility] Work Phone: Start: 07-25-2023 End: 07-25-[address] Chriss Cruz Work Phone: [facility] Work Phone: Start: 07-12-2023 End: 07-12-[address] Chriss Cruz Work Phone: [facility] Neurology Work Phone: Start: 07-06-[address] Chriss Cruz Work Phone: [facility] Start: 06-23-2023 End: 06-23-2023 Patient [...] encounter procedure Dr. Chriss Cruz Work Phone: [facility] Work Phone: Start: 05-29-2023 Refill Chriss Cruz MD Work Phone: [facility] Comment on above: Refill Request Start: 05-25-2023 End: 05-25-2023 Emergency department patient visit Dr. Chriss Cruz Work Phone: [facility] Work Phone: Start: 05-25-2023 End: 05-25-[address] Chriss Cruz Work Phone: [facility] Work Phone: Start: 05-11-2023 End: 05-11-[address] Chriss Cruz Work Phone: [facility] Work Phone: Start: 05-03-2023 End: 05-03-[address] Chriss Cruz Work Phone: [facility] Endocrinology Work Phone: Start: 04-27-2023 End: 04-27-[address] Chriss Cruz Work Phone: [facility] Work Phone: Start: 03-24-2023 End: 03-24-[address] Chriss Cruz Work Phone: [facility] Work Phone: Start: 03-24-2023 End: 03-24-[address] Chriss Cruz Work Phone: [facility] Work Phone: Start: 03-16-[address] Chriss Cruz Work Phone: [facility] Start: 03-16-2023 End: 03-16-[address] Chriss Cruz Work Phone: [facility] Work Phone: Start: 02-24-2023 End: 02-24-[address] Chriss Cruz Work Phone: [facility] G[facility]enter[facility] Work Phone: Start: 02-09-2023 Telephone encounter Candy Penn APRN.CNP Work Phone: Endocrinology Comment on above: Diabetic Eye Exam Report ([facility] [place]) Start: 02-01-2023 End: 02-01-2023 Patient encounter procedure Chriss Cruz MD Work Phone: [facility] Comment on above: Polyneuropathy (Primary Dx); Moderate episode of recurrent major depressive disorder (HCC); Stage 3a chronic kidney disease (HCC); Essential hypertension Start: 01-31-2023 End: 01-31-[address] Chriss Cruz Work Phone: [facility] Work Phone: Start: 01-30-2023 End: 01-30-[address] Chriss Cruz Work Phone: [facility] Endocrinology Work Phone: Start: 01-14-2023 End: 01-14-2023 Emergency department patient visit Dr. Chriss Cruz Work Phone: [facility] Work Phone: Start: 01-03-2023 End: 01-03-[address] Chriss Cruz Work Phone: [facility] Work Phone: Start: 12-29-2022 End: 12-29-2022 Patient encounter procedure Chriss Cruz MD Work Phone: [facility] Comment on above: Gastrointestinal hemorrhage, unspecified gastrointestinal hemorrhage type (Primary Dx); Hypertension due to endocrine disorder; Mixed hyperlipidemia; Seizure disorder (HCC); Stage 3a chronic kidney disease (HCC) Start: 12-15-2022 End: 12-15-[address] Chriss Cruz Work Phone: [facility] Work Phone: Start: 12-09-2022 Telephone encounter Chriss Cruz MD Work Phone: [facility] Comment on above: Results Start: 12-06-2022 End: 12-06-[address] Chriss Cruz Work Phone: [facility] Work Phone: Start: 12-02-2022 Telephone encounter Chriss Cruz MD Work Phone: [facility] Comment on above: Results Start: 12-01-2022 End: 12-01-2022 Patient encounter procedure Chriss Cruz MD Work Phone: [facility] Comment on above: Gastrointestinal hemorrhage, unspecified gastrointestinal hemorrhage type (Primary Dx); Seizure disorder (HCC); Essential hypertension; Mixed hyperlipidemia; Stage 3a chronic kidney disease (HCC); Bleeding esophageal varices, unspecified esophageal varices type (HCC); Hepatomegaly; Decreased thyroid stimulating hormone (TSH) level; Iron deficiency anemia due to chronic blood loss Start: 11-28-2022 Patient Outreach Chriss Cruz MD Work Phone: [facility] Comment on above: Transition Of Care Start: 11-26-2022 Non-patient / Non-visit Dr. Chriss Cruz Work Phone: [facility] Start: 11-26-2022 Non-patient / Non-visit Dr. Chriss Cruz Work Phone: [facility] Start: 11-25-2022 Non-patient / Non-visit Dr. Chriss Cruz Work Phone: [facility] Start: 11-24-2022 Non-patient / Non-visit Dr. Chriss Cruz Work Phone: [facility] Start: 11-24-2022 Non-patient / Non-visit Dr. Chriss Cruz Work Phone: [facility] Start: 11-23-2022 Non-patient / Non-visit Dr. Chriss Cruz Work Phone: [facility] Start: 11-23-2022 End: 11-26-2022 Evaluation and management of inpatient Dr. Chriss Cruz Work Phone: [facility] Start: 11-22-[address] Chriss Cruz Work Phone: [facility] Start: 11-02-2022 End: 11-02-[address] Chriss Cruz Work Phone: [facility] Start: 11-02-2022 End: 11-02-[address] Chriss Cruz Work Phone: [facility] Work Phone: Start: 11-02-2022 End: 11-02-[address] Chriss Cruz Work Phone: [facility] Neurology Start: 10-27-[address] Chriss Cruz Work Phone: [facility] Start: 10-06-2022 End: 10-06-2022 Patient encounter procedure Chriss Cruz MD Work Phone: [facility] Comment on above: Seizure disorder (HCC) (Primary [...] for vaccination Start: 09-29-2022 End: 09-29-2022 ambulatory [facility] Work Phone: Start: 09-29-2022 End: 09-29-2022 Patient encounter procedure [facility] Start: 09-20-2022 End: 09-20-2022 Patient encounter procedure Candy Penn APRN.TABLE G[employer] FLOOR SUPERVISOR Work Phone: Endocrinology Comment on above: Type [...] malignant neoplasm of prostate Start: 09-13-2022 Registered [facility] [facility] Start: 08-22-2022 End: 08-22-2022 Patient encounter procedure Ruma Ortiz APRN.TABLE [employer] FLOOR SUPERVISOR Work Phone: [facility] Comment on above: URI, acute (Primary Dx) Start: 07-08-2022 Refill Chriss Cruz MD Work Phone: [facility] [place] Comment on above: Refill Request Start: 06-17-2022 End: 06-17-2022 Patient encounter procedure Candy Penn ENVELOPE ADDRESSER.TABLE GAMES FLOOR SUPERVISOR Work Phone: Endocrinology Comment on above: Type [...] 06-03-2022 Refill Chriss Cruz MD Work Phone: [facility] Comment on above: Refill Request Start: 06-02-2022 Telephone encounter Chriss Cruz MD Work Phone: [facility] Comment on above: Blood Pressure Check Start: 06-02-2022 End: 06-02-2022 Nursing evaluation of patient and report Mi Nurse Work Phone: [facility] Comment on above: Essential hypertension (Primary Dx) Start: 05-19-2022 End: 05-19-[address] Chriss Cruz Work Phone: [facility] Work Phone: Start: 05-19-2022 End: 05-19-[address] Chriss Cruz Work Phone: [facility] Start: 05-10-2022 End: 05-10-[address] Chriss Cruz Work Phone: [facility] Start: 05-04-2022 Telephone encounter Chriss Cruz MD Work Phone: [facility] Comment on above: Blood Pressure Check Start: 05-04-2022 End: 05-04-2022 Nursing evaluation of patient and report Mi Nurse Work Phone: [facility] Comment on above: Essential hypertension (Primary Dx) Start: 05-03-[address] Chriss Cruz Work Phone: [facility] Start: 04-08-2022 Refill Chriss Cruz MD Work Phone: [facility] Comment on above: Refill Request Start: 03-30-2022 End: 03-30-2022 Patient encounter procedure Chriss Cruz MD Work Phone: [facility] Comment on above: Essential hypertension (Primary Dx); [...] patient visit Dr. Chriss Cruz Work Phone: [facility]Emergency Department Start: 02-10-2022 Telephone encounter Roberto [...] encounter procedure Dr. Chriss Cruz Work Phone: [facility] Neurology Start: 02-04-2022 Telephone encounter Candy Penn APRN.[employer] FLOOR SUPERVISOR Work Phone: Endocrinology Comment on above: Diabetic Eye Exam ([facility]) Bradycardia Start: 02-04-2022 End: 02-04-2022 Patient encounter procedure Candy Penn APRN.[employer] FLOOR SUPERVISOR Work Phone: Endocrinology Comment on above: OPENED IN ERROR (Primary Dx) Start: 02-01-2022 End: 02-01-2022 Patient encounter procedure [facility] Start: 01-31-2022 Patient encounter procedure Lisette Lovell DO Work Phone: Infectious Disease Comment on above: Physician To Physician Consult Start: 01-31-2022 Telephone encounter Roberto Suareztaylor Work Phone: Podiatry Comment on above: Patient Update Start: 01-28-2022 End: 01-28-2022 Subsequent hospital visit by physician Xr [facility] Work Phone: Radiology Comment on [...] 01-26-2022 End: 01-26-2022 Emergency department patient visit [facility] Start: 01-07-2022 Registered Recurring [facility] [facility] Start: 01-06-2022 Refill Chriss Cruz MD Work Phone: [facility] Comment on above: Refill Request (Out of medication) Start: 12-23-2021 Telephone encounter Chriss Cruz MD Work Phone: [facility] Comment on above: Results Start: 12-22-2021 Refill Roberto Suareztaylor Work Phone: Podiatry Comment on above: Refill Request Start: 12-14-2021 Telephone encounter Abimbola Amos PA-C Work Phone: [facility] Comment on above: Blood Pressure Check Start: 12-14-2021 End: 12-14-2021 Nursing evaluation of patient and report Mi Nurse Work Phone: [facility] Comment on above: Essential hypertension (Primary Dx) Start: 12-02-2021 Telephone encounter Abimbola Amos PA-C Work Phone: [facility] Comment on above: Results Start: 12-01-2021 Orders Only M Ilia Amos PA-C Work Phone: [facility] Comment on above: Acute renal disease (Primary Dx) Start: 11-29-2021 End: 11-29-2021 [facility] Start: 11-29-2021 Telephone encounter Chriss Cruz MD Work Phone: [facility] Comment on above: Patient Update Start: 11-27-2021 End: 11-27-2021 [facility] Start: 11-27-2021 End: 11-27-2021 Patient encounter procedure Chriss Cruz MD Work Phone: [facility] Comment on above: Edema of left lower leg (Primary Dx); Family history of DVT; Anemia, unspecified type; Stage 3a chronic kidney disease (HCC); Hyperkalemia; Cecum cancer (HCC); Essential hypertension; Type 1 diabetes mellitus with diabetic polyneuropathy (HCC); Pain of left lower extremity; Primary hypertension Start: 11-26-2021 Telephone encounter Chriss Cruz MD Work Phone: [facility] Comment on above: Results Start: 11-24-2021 End: 11-24-2021 Patient encounter procedure Chriss Cruz MD Work Phone: [facility] Comment on above: Hyperkalemia (Primary Dx); Primary hypertension; Hyponatremia; Type 1 diabetes mellitus with diabetic polyneuropathy (HCC); Anemia, unspecified type; Stage 3 chronic kidney disease, unspecified whether stage 3a or 3b CKD (HCC); Cecum cancer (HCC); Seizure disorder (HCC); Mixed hyperlipidemia; Essential hypertension Start: 11-22-2021 Telephone encounter Chriss Cruz MD Work Phone: [facility] Comment on above: ER F/U Start: 11-21-2021 End: 11-21-2021 [facility] Start: 11-19-2021 Telephone encounter Chriss Cruz MD [facility] Phone[facility] Comment on above: Blood Pressure Check Results Start: 11-19-2021 End: 11-19-2021 Nursing evaluation of patient and report Mi Nurse Work Phone: [facility] Comment on above: Essential hypertension (Primary [...] Potassium serum plasma/whole blood Agnes Stefan Susan ENVELOPE ADDRESSER-TABLE GAMES FLOOR SUPERVISOR Work Phone: Start: 12-25-2024 Assay of ferritin [...] Comment: This test was performed on the [employer] Immunoassay platform which is a 2-step sandwich chemiluminescent immunoassay. It is important to note that assays using different manufacturers and/or methods may not be comparable. Performed By: #### C [id number] #### [facility] (DEFAULT) [address] [address] Start: 11-08-2024 ALCOHOL (ETHANOL),BLOOD Tyrese Lange MBBS [...] on above: Performed By: #### [id number] #### [facility] (DEFAULT) [address] [place] [address] Start: 08-14-2024 Estimated creatinine clearance Kimberlyn woods [...] Kimberlyn East MD Work Phone: Start: 10-06-2022 PFIZER-BIONTBusbud COVID-19 BIVALENT BOOSTER VACCINE, AGE 12+ YR Chriss Cruz MD Work Phone: Start: 09-20-2022 Gluc bld gluc mntr dev cleared fda spec home use Candy Kupiec ENVELOPE ADDRESSER.TABLE GAMES FLOOR SUPERVISOR Work Phone: Start: 09-20-2022 Hemoglobin A1c/Hemoglobin.total in Blood Candy Kupiec ENVELOPE ADDRESSER.TABLE GAMES FLOOR SUPERVISOR Work Phone: Start: 06-17-2022 Hemoglobin A1c/Hemoglobin.total in Blood Candy Kupiec ENVELOPE ADDRESSER.TABLE GAMES FLOOR SUPERVISOR Work Phone: Start: 02-04-2022 Gluc bld gluc mntr dev cleared fda spec home use Candy Kupiec ENVELOPE ADDRESSER.TABLE GAMES FLOOR SUPERVISOR Work Phone: Start: 02-04-2022 Hemoglobin A1c/Hemoglobin.total in Blood Candy Kupiec ENVELOPE ADDRESSER.TABLE GAMES FLOOR SUPERVISOR Work Phone: Start: 01-28-2022 Radex foot complete [...] specific antigen measurement Prostate Cancer Screening Discussion [facility] Start: 12-02-2027 Prostate specific antigen measurement Prostate Cancer Screening Discussion [facility] Start: 02-24-2027 Tetanus vaccination TETANUS [facility] Start: 02-24-2027 [facility] Start: 04-29-2026 End: 04-29-2026 Patient encounter procedure 04/29/2026 1:00 PM EDT Office Visit Gastroenterology and Hepatology Outpatient Care [facility] [address] [facility] [address] [place] [address] Lillian Hall, DO [address] [place] [address] [place] [address] Gastroenterology and Hepatology Outpatient Care [facility] Start: 11-08-2025 Complete blood count Hemoglobin/Hematocrit [facility] Start: 11-08-2025 Creatinine measurement Serum Creatinine [facility] Start: 11-08-2025 Potassium [Moles/volume] in Serum or Plasma POTASSIUM [facility] Start: 11-08-2025 Prostate specific antigen measurement PROSTATE CANCER SCREENING DISCUSSION [facility] Start: 07-03-2025 Screening for malignant neoplasm of colon COLORECTAL CANCER SCREENING DISCUSSION [facility] Start: 06-30-2025 Patient encounter procedure Registered Clinical -[facility] [place] Work Phone: Start: 06-30-2025 End: 06-30-2025 Patient encounter procedure Polyneuropathy -[facility] Work Phone: Start: 06-25-2025 End: 06-25-2025 Patient encounter procedure ESRD (end stage renal disease) on dialysis -[facility] Work Phone: Start: 06-05-2025 Complete blood count Hemoglobin/Hematocrit [facility] Start: 06-04-2025 Patient discharge [facility] Start: 05-11-2025 Hemoglobin A1c measurement [facility] Start: 05-02-2025 Prostate specific antigen measurement ASSAY OF PSA TOTAL [facility] Start: 04-28-2025 Influenza vaccination [facility] Start: 04-23-2025 End: 04-23-2025 Patient encounter procedure Imaging [facility]patient [facility] Start: 01-01-2025 End: 12-25-2025 CT Abdomen WO and W contrast IV CT ABDOMEN WITH AND WITHOUT CONTRAST Imaging Routine Hepatosplenomegaly Liver lesion Expected: 01/01/2025 (Approximate), Expires: 12/25/2025 [facility] Comment on above: Expected: 01/01/2025 (Approximate), Expi res: 12/25/2025 Start: 12-13-2024 End: 12-13-2024 Patient encounter procedure 12/13/2024 8:30 AM EDT Appointment Imaging [address] [address] Tyrese Lange MBBS [address] [place] [id number] [facility] Start: 12-13-2024 Subsequent hospital visit by physician 12/13/2024 8:30 AM EDT Hospital Encounter Imaging [address] [address] Tyrese Lange MBBS [address] [place] [id number] [facility] Start: 12-11-2024 End: 12-11-2024 Patient encounter procedure [facility] [place] Start: 11-20-2024 End: 11-20-2024 [facility] Comment on above: KTP Pre-transplant evaluation for kidney transplant [Z01.818] CT abd/pelvis-NOT needed Start: 11-08-2024 End: 11-08-2025 C-PEPTIDE C-PEPTIDE Lab Routine Pre-transplant evaluation for kidney transplant Expected: 11/08/2024, Expires: 11/08/2025 [facility] Comment on above: Expected: 11/08/2024, Expires: Start: 11-08-2024 End: 11-08-2025 CTA Abdominal Aorta and Bilateral Runoff Vessels W contrast IV CT ANGIO ABDOMINAL AORTA WITH RUNOFF Imaging Routine Pre-transplant evaluation for kidney transplant ESRD (end stage renal disease) on dialysis Expected: 11/08/2024, Expires: 11/08/2025 [facility] Comment on above: Expected: 11/08/2024, Expires: Start: 11-08-2024 End: 11-08-2025 Echocardiography ECHOCARDIOGRAM Echocardiography Routine Pre-transplant evaluation for kidney transplant ESRD (end stage renal disease) on dialysis Expected: 11/08/2024, Expires: 11/08/2025 [facility] Comment on above: Expected: 11/08/2024, Expires: Start: 11-08-2024 End: 11-08-2025 ETHANOL (ALCOHOL), URINE ETHANOL (ALCOHOL), URINE Lab Routine Pre-transplant evaluation for kidney transplant Expected: 11/08/2024, Expires: 11/08/2025 [facility] Comment on above: Expected: 11/08/2024, Expires: Start: 11-08-2024 End: 11-08-2025 HLA TYPING (SOLID ORGAN) [facility] Comment on above: Expected: 11/08/2024, Expires: Start: 11-08-2024 End: 11-08-2025 HSV IGM ANTIBODY [facility] Comment on above: Expected: 11/08/2024, Expires: Start: 11-08-2024 End: 11-08-2025 M TUBERCULOSIS BY QUANTIFERON, BLD [facility] Comment on above: Expected: 11/08/2024, Expires: Start: 11-08-2024 End: 11-08-2025 PRA CLASS (PRE-TRANSPLANT) [facility] Comment on above: Expected: 11/08/2024, Expires: Start: 11-08-2024 End: 11-08-2025 SPECT Heart perfusion at rest and W stress and W radionuclide IV NUC MYOCARD PERF STRESS MIBI EXERCISE Cardiac Nuclear Medicine Routine Pre-transplant evaluation for kidney transplant ESRD (end stage renal disease) on dialysis Expected: 11/08/2024, Expires: 11/08/2025 [facility] Comment on above: Expected: 11/08/2024, Expires: Start: 11-08-2024 End: 11-08-2025 TOXICOLOGY DRUG SCREEN, SERUM [facility] Comment on above: Expected: 11/08/2024, Expires: Start: 10-30-2024 Patient discharge [facility] Start: 06-07-2024 Administration of blood product [facility] Start: 06-07-2024 [facility] Start: 05-30-2024 Administration of blood product [facility] Start: 05-30-2024 [facility] Start: 05-22-2024 Venous catheter care management [facility] Start: 04-28-2024 COVID-19 VACCINE ( season) COVID-19 VACCINE ( season) [facility] Start: 04-28-2024 Covid-19 Vaccine ( season) Covid-19 Vaccine ( season) [facility] Start: 04-28-2024 Influenza vaccination Influenza Vaccine (#1) [facility] Start: 02-08-2024 Glaucoma screening Dilated Retinal Exam [facility] Start: 02-08-2024 Hepatitis C antibody, confirmatory test DILATED RETINAL EXAM [facility] Start: 02-02-2024 3 comp foot exam completed DIABETIC FOOT EXAM [facility]ryan Start: 02-02-2024 ANNUAL PCP TEAM CHRONIC DISEASE VISIT ANNUAL PCP TEAM CHRONIC DISEASE VISIT [facility] Start: 02-02-2024 Diabetic foot examination Diabetic Foot Exam [facility] Start: 02-02-2024 SHINGRIX VACCINE (1 of 2) SHINGRIX VACCINE (1 of 2) [facility] Comment on above: Postponed from 1987 (Declined at t his time) Start: 01-06-2024 Creatinine measurement Serum Creatinine [facility] Start: 01-06-2024 SERUM CREATININE SERUM CREATININE [facility] Start: 12-30-2023 ANNUAL PCP TEAM CHRONIC DISEASE VISIT ANNUAL PCP TEAM CHRONIC DISEASE VISIT [facility] Start: 12-23-2023 Hemoglobin A1c measurement HbA1C [facility] Start: 12-23-2023 Hemoglobin A1c/Hemoglobin.total in Blood HbA1C [facility] Start: 12-18-2023 Venous catheter care management [facility] Start: 12-09-2023 HEMOGLOBIN/HEMATOCRIT HEMOGLOBIN/HEMATOCRIT [facility] Start: 12-09-2023 SERUM CREATININE SERUM CREATININE [facility] Start: 12-09-2023 Patient discharge [facility] Start: 12-09-2023 Venous catheter care management [facility] Start: 12-08-2023 Thyroid stimulating hormone measurement [facility] Start: 12-08-2023 [facility] Start: 12-07-2023 Following clinical pathway protocol [facility] Start: 12-07-2023 Ambulation without limitation [facility] Start: 12-07-2023 Assessment of risk of venous thromboembolism [facility] Start: 12-07-2023 Care regimes management [facility] Start: 12-07-2023 Incentive spirometry [facility] Start: 12-07-2023 Insertion of catheter into peripheral vein [facility] Start: 12-07-2023 Measuring intake and output [facility] Start: 12-07-2023 Notification of physician [facility] Start: 12-07-2023 Oxygen therapy [facility] Start: 12-07-2023 Providing care according to standard [facility] Start: 12-07-2023 Referral to machine ii cutter [facility] Start: 12-07-2023 Referral to service [facility] Start: 12-07-2023 [facility] Start: 12-07-2023 Verification routine [facility] Start: 12-07-2023 Admission procedure [facility] Start: 12-07-2023 Collection venous blood venipuncture ROUTINE VENIPUNCTURE [facility] Start: 12-07-2023 Comprehensive metabolic panel COMPREHEN METABOLIC PANEL [facility] Start: 12-07-2023 Patient referral to dietitian [facility] Start: 12-07-2023 [facility] Start: 12-02-2023 ANNUAL PCP TEAM CHRONIC DISEASE VISIT ANNUAL PCP TEAM CHRONIC DISEASE VISIT [facility] Start: 12-02-2023 HEMOGLOBIN/HEMATOCRIT HEMOGLOBIN/HEMATOCRIT [facility] Start: 12-02-2023 Hepatitis B screening URINE ALBUMIN:CREATININE RATIO [facility] Start: 12-02-2023 Hepatitis B surface antibody level LDL CHOLESTEROL [facility] Start: 12-02-2023 SERUM CREATININE SERUM CREATININE [facility] Start: 11-03-2023 Venous catheter care management [facility] Start: 10-16-2023 [facility] Start: 10-06-2023 ANNUAL PCP TEAM CHRONIC DISEASE VISIT ANNUAL PCP TEAM CHRONIC DISEASE VISIT [facility] Start: 10-06-2023 COLORECTAL CANCER SCREENING COLORECTAL CANCER SCREENING [facility] Comment on above: Postponed from 2013 (Declined at t his time) Start: 08-09-2023 Venous catheter care management [facility] Start: 08-02-2023 Egd band ligation esophgeal/gastric varices EGD VARICES LIGATION [facility] Start: 08-02-2023 Venous catheter care management [facility] Start: 08-02-2023 Patient discharge [facility] Start: 07-25-2023 Celiac disease screen [facility] Start: 07-25-2023 IgE [Units/volume] in Serum or Plasma [facility] Start: 07-25-2023 IgG subclass panel [Mass/volume] - Serum [facility] Start: 07-25-2023 Serum immunofixation [facility] Start: 07-25-2023 [facility] Start: 06-02-2023 Hemoglobin A1c/Hemoglobin.total in Blood HBA1C [facility] Start: 05-25-2023 Venous catheter care management [facility] Start: 04-28-2023 Covid-19 Vaccine ( season) Covid-19 Vaccine ( season) [facility] Start: 04-28-2023 Influenza vaccination [facility] Start: 03-30-2023 ANNUAL PCP TEAM CHRONIC DISEASE VISIT ANNUAL PCP TEAM CHRONIC DISEASE VISIT [facility] Start: 02-24-2023 Influenza vaccination INFLUENZA (#1) [facility] Comment on above: Postponed from 04/28/2022 (Declined at t his time) Start: 02-15-2023 ANNUAL PCP TEAM CHRONIC DISEASE VISIT ANNUAL PCP TEAM CHRONIC DISEASE VISIT [facility] Start: 02-04-2023 HEMOGLOBIN/HEMATOCRIT HEMOGLOBIN/HEMATOCRIT [facility] Start: 02-04-2023 SERUM CREATININE SERUM CREATININE [facility] Start: 02-03-2023 Hepatitis C antibody, confirmatory test DILATED RETINAL EXAM [facility] Start: 12-29-2022 End: 02-28-2023 Basic metabolic 2000 panel - Serum or Plasma [facility] Work Phone: Comment on above: Expected: 12/29/2022, Expires: Start: 12-27-2022 Venous catheter care management [facility] Start: 12-22-2022 ANNUAL PCP TEAM CHRONIC DISEASE VISIT ANNUAL PCP TEAM CHRONIC DISEASE VISIT [facility] Start: 12-22-2022 HEMOGLOBIN/HEMATOCRIT HEMOGLOBIN/HEMATOCRIT [facility] Start: 12-22-2022 SERUM CREATININE SERUM CREATININE [facility] Start: 12-19-2022 End: 02-18-2023 ALBUMIN/CREAT RATIO RND [...] edema (HCC) Expected: 12/19/2022 (Approximate), Expires: 02/18/2023 [facility] Work Phone: Comment on above: Expected: 12/19/2022 (Approximate), Expi res: 02/18/2023 Start: 12-19-2022 End: 02-18-2023 BIOAVAIL TESTO/SHBG, ADULT MALE BIOAVAIL TESTO/SHBG, ADULT MALE Lab Routine Hypogonadism in male Expected: 12/19/2022 (Approximate), Expires: 02/18/2023 [facility] Work Phone: Comment on above: Expected: 12/19/2022 [...] edema (HCC) Expected: 12/19/2022 (Approximate), Expires: 02/18/2023 [facility] Work Phone: Comment on above: Expected: 12/19/2022 [...] edema (HCC) Expected: 12/19/2022 (Approximate), Expires: 02/18/2023 [facility] Work Phone: Comment on above: Expected: 12/19/2022 (Approximate), Expi res: 02/18/2023 Start: 12-19-2022 Hemoglobin A1c/Hemoglobin.total in Blood HBA1C [facility] Start: 12-19-2022 End: 02-18-2023 Lipid 1996 panel [...] Mixed hyperlipidemia Expected: 12/19/2022 (Approximate), Expires: 02/18/2023 [facility] Work Phone: Comment on above: Expected: 12/19/2022 (Approximate), Expi res: 02/18/2023 Start: 12-19-2022 End: 02-18-2023 PSA/PROSTSPECAG SCRN PSA/PROSTSPECAG SCRN Lab Routine Hypogonadism in male Encounter for screening for malignant neoplasm of prostate Expected: 12/19/2022 (Approximate), Expires: 02/18/2023 [facility] Work Phone: Comment on above: Expected: 12/19/2022 [...] edema (HCC) Expected: 12/19/2022 (Approximate), Expires: 02/18/2023 [facility] Work Phone: Comment on above: Expected: 12/19/2022 (Approximate), Expi res: 02/18/2023 Start: 12-18-2022 End: 02-17-2023 carBAMazepine [Mass/volume] in Serum or Plasma CARBAMAZEPI/TEGRETOL Lab Routine Seizure disorder (HCC) Trigeminal neuralgia Expected: 12/18/2022, Expires: 02/17/2023 [facility] Work Phone: Comment on above: Expected: 12/18/2022, Expires: 3 Start: 12-07-2022 COLORECTAL CANCER SCREENING COLORECTAL CANCER SCREENING [facility] Start: 12-07-2022 FECAL OCCULT BLOOD FECAL OCCULT BLOOD [facility] Start: 12-07-2022 Screening for malignant neoplasm of colon [facility] Start: 12-07-2022 SERUM CREATININE SERUM CREATININE [facility] Start: 12-02-2022 End: 02-01-2023 Basic metabolic 2000 panel - Serum or Plasma BASIC METABOLIC PNL Lab Routine Gastrointestinal hemorrhage, unspecified gastrointestinal hemorrhage type Stage 3a chronic kidney disease (HCC) Expected: 12/02/2022, Expires: 02/01/2023 [facility] Work Phone: Comment on above: Expected: 12/02/2022, Expires: 3 Start: 12-02-2022 End: 02-01-2023 CBC W Auto Differential panel - Blood CBC + DIFF Lab Routine Gastrointestinal hemorrhage, unspecified gastrointestinal hemorrhage type Stage 3a chronic kidney disease (HCC) Expected: 12/02/2022, Expires: 02/01/2023 [facility] Work Phone: Comment on above: Expected: 12/02/2022, Expires: Start: 12-01-2022 Covid-19 Vaccine (6 - Moderna risk series) Covid-19 Vaccine (6 - Moderna risk series) [facility] Start: 11-30-2022 ANNUAL PCP TEAM CHRONIC DISEASE VISIT ANNUAL PCP TEAM CHRONIC DISEASE VISIT [facility] Start: 11-30-2022 SERUM CREATININE SERUM CREATININE [facility] Start: 11-28-2022 [facility] Start: 11-27-2022 ANNUAL PCP TEAM CHRONIC DISEASE VISIT ANNUAL PCP TEAM CHRONIC DISEASE VISIT [facility] Start: 11-27-2022 Prothrombin time [facility] Start: 11-27-2022 [facility] Start: 11-26-2022 HEMOGLOBIN/HEMATOCRIT HEMOGLOBIN/HEMATOCRIT [facility] Start: 11-26-2022 SERUM CREATININE SERUM CREATININE [facility] Start: 11-26-2022 Patient discharge [facility] Start: 11-25-2022 Recommendation to continue with treatment [facility] Start: 11-24-2022 ANNUAL PCP TEAM CHRONIC DISEASE VISIT ANNUAL PCP TEAM CHRONIC DISEASE VISIT [facility] Start: 11-24-2022 Catheterization of vein [facility] Start: 11-23-2022 Referral to gastroenterology service [facility] Start: 11-23-2022 Application of intermittent pneumatic compression device [facility] Start: 11-23-2022 Venous catheter care management [facility] Start: 11-23-2022 Assessment of risk of venous thromboembolism [facility] Start: 11-23-2022 Cardiac monitoring [facility] Start: 11-23-2022 Care regimes management [facility] Start: 11-23-2022 Insertion of catheter into peripheral vein [facility] Start: 11-23-2022 Measuring intake and output [facility] Start: 11-23-2022 Providing care according to standard [facility] Start: 11-23-2022 Provision of activity privileges [facility] Start: 11-23-2022 Referral to service [facility] Start: 11-23-2022 [facility] Start: 11-23-2022 Following clinical pathway protocol [facility] Start: 11-23-2022 CT of head without contrast Brain/Head without Contrast [facility] Start: 11-23-2022 CT Unspecified body region WO contrast [facility] Start: 11-23-2022 Electroencephalogram [facility] Start: 11-23-2022 Verification routine [facility] Start: 11-23-2022 Admission procedure [facility] Start: 11-23-2022 Leukocyte reduced red blood cells [facility] Start: 11-23-2022 End: 11-23-2022 [facility] Start: 11-23-2022 Administration of blood product [facility] Start: 11-23-2022 [facility] Start: 11-23-2022 Patient referral to dietitian [facility] Start: 11-19-2022 SERUM CREATININE SERUM CREATININE [facility] Start: 11-10-2022 Hepatitis B screening URINE ALBUMIN:CREATININE RATIO [facility] Start: 11-10-2022 Hepatitis B surface antibody level LDL CHOLESTEROL [facility] Start: 11-10-2022 SERUM CREATININE SERUM CREATININE [facility] Start: 10-26-2022 3 comp foot exam completed DIABETIC FOOT EXAM [facility] Start: 10-13-2022 ANNUAL PCP TEAM CHRONIC DISEASE VISIT ANNUAL PCP TEAM CHRONIC DISEASE VISIT [facility] Start: 10-07-2022 HEMOGLOBIN/HEMATOCRIT HEMOGLOBIN/HEMATOCRIT [facility] Start: 09-17-2022 Hemoglobin A1c/Hemoglobin.total in Blood HBA1C [facility] Start: 05-07-2022 Hemoglobin A1c/Hemoglobin.total in Blood HBA1C [facility] Start: 04-28-2022 Influenza vaccination INFLUENZA (#1) [facility] Start: 04-20-2022 COLORECTAL CANCER SCREENING COLORECTAL CANCER SCREENING [facility] Start: 04-20-2022 FECAL OCCULT BLOOD FECAL OCCULT BLOOD [facility] Start: 02-02-2022 Hepatitis C antibody, confirmatory test DILATED RETINAL EXAM [facility] Start: 01-29-2022 Hemoglobin A1c/Hemoglobin.total in Blood HBA1C [facility] Start: 01-27-2022 COVID-19 VACCINE (5 - Booster for Moderna series) COVID-19 VACCINE (5 - Booster for Moderna series) [facility] Start: 01-26-2022 Bacteria identified in Blood by Culture Blood Culture [facility] Work Phone: Start: 01-26-2022 [facility] Work Phone: Start: 12-08-2021 End: 02-07-2022 Basic metabolic 2000 panel - Serum or Plasma BASIC METABOLIC PNL Lab Routine Acute renal disease Expected: 12/08/2021, Expires: 02/07/2022 [facility] Work Phone: Comment on above: Expected: 12/08/2021, Expires: 2 Start: 11-26-2021 End: 01-26-2022 Basic metabolic 2000 panel - Serum or Plasma [facility] Work Phone: Comment on above: Expected: 11/26/2021, Expires: 2 Start: 11-26-2021 End: 11-24-2022 CBC W Auto Differential panel - Blood [facility] Work Phone: Comment on above: Expected: 11/26/2021, Expires: 3 Expected: 11/26/2021 , Expires: 01/26/2022 Start: 11-26-2021 End: 11-24-2022 FERRITIN BLD FERRITIN BLD Lab Routine Anemia, unspecified type Expected: 11/26/2021, Expires: 11/24/2022 [facility] Work Phone: Comment on above: Expected: 11/26/2021, Expires: 3 Start: 11-26-2021 End: 11-24-2022 Folate [Mass/volume] in Serum or Plasma FOLATE SERUM Lab Routine Anemia, unspecified type Expected: 11/26/2021, Expires: 11/24/2022 [facility] Work Phone: Comment on above: Expected: 11/26/2021, Expires: 3 Start: 11-26-2021 End: 11-24-2022 IRON + TIBC IRON + TIBC Lab Routine Anemia, unspecified type Expected: 11/26/2021, Expires: 11/24/2022 [facility] Work Phone: Comment on above: Expected: 11/26/2021, Expires: 3 Start: 11-26-2021 End: 11-24-2022 VITAMIN B12 BLOOD VITAMIN B12 BLOOD Lab Routine Anemia, unspecified type Expected: 11/26/2021, Expires: 11/24/2022 [facility] Work Phone: Comment on above: Expected: 11/26/2021, Expires: 3 Start: 11-24-2021 End: 11-24-2022 Hemoglobin.gastrointestina l.lower [Presence] in Stool by Immunoassay FECAL OCCULT BLOOD TEST Lab Routine Anemia, unspecified type Expected: 11/24/2021, Expires: 11/24/2022 [facility] Work Phone: Comment on above: Expected: 11/24/2021, Expires: 3 Start: 07-29-2021 Venous catheter care management [facility] Start: 01-22-2021 Venous catheter care management [facility] Start: 12-11-2020 Venous catheter care management [facility] Start: 10-02-2020 Venous catheter care management [facility] Start: 07-26-2019 Flushing of Port-a-cath [facility] Start: 07-26-2019 Irrigation of vascular catheter [facility] Start: 2018 SHINGRIX VACCINE (1 of 2) SHINGRIX VACCINE (1 of 2) [facility] Start: 2018 Zoster vaccine hzv live for subcutaneous use ZOSTER (SHINGLES) VACCINE (1 of 2) [facility] Start: 09-27-2018 Flushing of Port-a-cath [facility] Start: 09-27-2018 Irrigation of vascular catheter [facility] Start: 06-21-2018 Flushing of Port-a-cath [facility] Start: 06-21-2018 Irrigation of vascular catheter [facility] Start: 05-24-2018 Flushing of Port-a-cath [facility] Start: 05-24-2018 Irrigation of vascular catheter [facility] Start: 10-18-2017 [facility] Start: 08-26-2016 Colonoscopy COLONOSCOPY [facility] Start: 08-26-2016 Screening for malignant neoplasm of colon [facility] Start: 05-28-2015 PNEUMOCOCCAL (3 - PCV) PNEUMOCOCCAL (3 - PCV) [facility] Start: 2013 COLOGUARD (FIT-DNA) COLOGUARD (FIT-DNA) [facility] Start: [address] COLONOGRAPHY [facility] Start: 2013 Screening for malignant neoplasm of colon [facility] Start: 2013 SIGMOIDOSCOPY SIGMOIDOSCOPY [facility] Start: 2008 Lipid panel LIPID SCREENING [facility] Start: 1987 HEPATITIS B (1 of 3 - Risk 3-dose series) HEPATITIS B (1 of 3 - Risk 3-dose series) [facility] Start: 1987 SHINGRIX VACCINE (1 of 2) SHINGRIX VACCINE (1 of 2) [facility] Start: 1986 Anxiety Screening Anxiety Screening [facility] Start: 1986 BP CONTROLLED (<130/80) [facility] Start: 1968 Diabetic foot examination DIABETIC FOOT EXAM [facility] Start: 1968 Glaucoma screening EYE EXAM [facility] Start: 1968 HEPATITIS B (1 of 3 - 3-dose series) HEPATITIS B (1 of 3 - 3-dose series) [facility] Start: 1968 Lipid panel LIPIDS [facility] Start: 1968 Urine screening for protein URINE MICROALBUMIN TEST [facility] AFP TUMOR MARKER AFP TUMOR MARKE R Lab Routine Liver lesion Portal hypertension 04/23/2025 3:30 PM EDT [facility] Alanine aminotransfe rase [Enzymatic activity/volume] in Serum or Plasma [facility] Albumin [Mass/volume ] in Serum or Plasma [facility] Albumin [Moles/volum e] in Serum or Plasma [facility] Albumin/Globulin ratio [facility] Alkaline phosphatase [Enzymatic activity/volume] in Serum or Plasma [facility] KENNETH SCREEN IFA KENNETH SCREEN IFA L ab Routine Hepatosplenomegaly 12/25/2024 3:40 PM EDT [facility] Anion gap measurement [facility] ANTI MITOCHONDRIAL ANTIBODY ANTI MITOCHONDRIAL ANTIBODY Lab Routine Hepatosplenomegaly 12/25/2024 3:40 PM EDT [facility] ANTI SMOOTH MUSCLE ANTIBODY ANTI SMOOTH MUSCLE ANTIBODY Lab Routine Hepatosplenomegaly 12/25/2024 3:40 PM EDT [facility] Aspartate aminotrans ferase [Enzymatic activity/volume] in Serum or Plasma [facility] Bacteria identified in Wound by Culture WOUND CULTURE AND GRAM STAIN Microbiology Routine 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, limited to breakdown of skin ([facility]) 01/28/2022 2:28 PM EDT [facility] Work Phone: Bilirubin, total measurement [facility] Blood chemistry [facility] Work Phone: BUN/Creatinine ratio [facility] Calcium [Mass/volume ] in Serum or Plasma [facility] carBAMazepine [Mass/volume] in Serum or Plasma [facility] Work Phone: carBAMazepine [Mass/volume] in Serum or Plasma [facility] Carbon dioxide, tota l [Moles/volume] in Serum or Plasma [facility] Carcinoembryonic Ag [Mass/volume] in Serum or Plasma [facility] Work Phone: CBC W Auto Different ial panel - Blood [facility] Work Phone: CBC W Auto Different ial panel - Blood [facility] Ceruloplasmin [Mass/volume] in Serum or Plasma [facility] Chloride [Moles/volu me] in Serum or Plasma [facility] Copper [Moles/volume ] in Serum or Plasma [facility] Creatinine [Moles/vo lume] in Serum or Plasma [facility] CT Abdomen and Pelvi s W contrast IV [facility] Work Phone: CT Abdomen and Pelvi s W contrast IV [facility] CT Abdomen and Pelvi s W contrast IV [facility] End: 04-05-2025 CT Abdomen WO and W contrast IV [facility] Comment on above: 1 Occurrences starting 04/05/2025 until 04/05/2025 CT Chest W contrast IV [facility] Work Phone: CT Chest W contrast IV [facility] Electrophoresis: [id number] [facility] Electrophoresis: demond ma globulin [facility] Erythrocyte mean corpuscular volume determination [facility] Erythrocyte sediment ation rate [facility] Work Phone: Erythropoietin (EPO) [Units/volume] in Serum or Plasma [facility] Work Phone: Ferritin [Mass/volum e] in Serum or Plasma [facility] Work Phone: Folate [Mass/volume] in Serum or Plasma [facility] Work Phone: Globulin measurement [facility] Glucose [Mass/volume ] in Serum or Plasma GLUCOSE, BLOOD (POC) Lab Routine 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) Type 1 diabetes mellitus with stage 3 chronic kidney disease, unspecified whether stage 3a or 3b CKD (HCC) 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) Ordered: 09/20/2022 [facility] Work Phone: Comment on above: Ordered: 09/20/2022 Glucose [Mass/volume ] in Serum or Plasma [facility] Hematocrit [Volume Fraction] of Blood [facility] Hemoglobin [Mass/vol ume] in Blood [facility] End: 12-30-2024 HEPATIC WEDGE PRESSURE/VENO [facility] Work Phone: Comment on above: One Time for 1 Occurrences starting 12/2024 until 12/30/2024 Hepatitis A virus Ig M Ab [Presence] in Serum [facility] Hepatitis B core ant ibody measurement, IgM type [facility] Hepatitis B surface antigen measurement [facility] Hepatitis C antibody measurement [facility] IgA [Mass/volume] in Serum or Plasma [facility] IgG [Mass/volume] in Serum or Plasma [facility] IgG subclass 1 [Mass/volume] in Serum [facility] IgG subclass 2 [Mass/volume] in Serum [facility] IgG subclass 3 [Mass/volume] in Serum [facility] IgG subclass 4 [Mass/volume] in Serum [facility] IgM [Mass/volume] in Serum or Plasma [facility] Immunoglobulin measurement [facility] Work Phone: Iron and Iron bindin g capacity panel - Serum or Plasma [facility] Work Phone: Leukocytes [#/volume ] in Blood [facility] Magnesium [Mass/volu me] in Serum or Plasma [facility] Mean corpuscular hemoglobin concentration determination [facility] Mean corpuscular hemoglobin determination [facility] Measurement of immunoglobulin A in serum specimen [facility] Measurement of renal function [facility] Mitochondria Ab [Pre sence] in Serum [facility] Neutrophil count [facility] Neutrophil cytoplasm ic Ab.classic [Units/volume] in Serum [facility] Neutrophil percent differential count [facility] P-ANCA measurement [facility] Patient Education [facility] Work Phone: Patient referral [facility] Work Phone: PHOSPHATIDYLETHANOL (PETH), WHOLE BLOOD QUANTITATIVE PHOSPHATIDYLETHANOL (PETH), WHOLE BLOOD QUANTITATIVE Lab Routine Hepatosplenomegaly 12/25/2024 3:41 PM EDT [facility] Platelets [#/volume] in Blood [facility] Potassium [Moles/vol ume] in Serum or Plasma [facility] Protein electrophore sis panel - Serum or Plasma [facility] Radionuclide gastric emptying study [facility] Red blood cell count [facility] Red cell distributio n width determination [facility] Reticulocyte count [facility] Work Phone: Serum immunofixation [facility] Work Phone: Serum inorganic phos phate measurement [facility] Smooth muscle Ab [Presence] in Serum [facility] Sodium [Moles/volume ] in Serum or Plasma [facility] End: 01-27-2025 SURG PATH REQUEST [facility] Work Phone: Comment on above: One Time for 1 Occurrences starting 09/2024 until 01/27/2025, 1 completed Testosterone Free [Mass/volume] in Serum or Plasma [facility] Testosterone measurement [facility] Tissue transglutamin ase IgA Ab [Units/volume] in Serum [facility] Total protein measurement [facility] End: 12-30-2024 TRANSCATHETER BIOPSY [facility] Comment on above: One Time for 1 Occurrences starting 12/2024 until 12/30/2024 Transferrin [Mass/vo lume] in Serum or Plasma [facility] Urea nitrogen [Mass/volume] in Serum or Plasma [facility] AV fistula [facility] US Carotid arteries [facility] End: 11-24-2022 US RENAL ARTERY [facility] US RENAL ARTERY [facility] Vascular Lab Routine Hyperkalemia Primary hypertension 1 Occurrences starting 11/24/2021 until 11/24/2022 [facility] Work Phone: Comment on above: 1 Occurrences starting 11/24/2021 until 11/24/2022 Vitamin B12 measurement [facility] Work Phone: [facility] Immunizations Immunization Date Immunization Notes Care Provider Jennifer alvarado 09-10-2024 Hepatitis B vaccine (recombinant), CpG adjuvanted Dione Love RN [facility] 08-06-2024 Hepatitis B vaccine (recombinant), CpG adjuvanted Dione Love RN [facility] 07-27-2024 pneumococcal conjuga te (PCV20) vaccine, 20 valent (PREVNAR 20) Dione Love RN [facility] 10-06-2022 COVID-19 booster vaccine, age 12+ yr, bivalent ([employer]) Chriss Cruz MD Work Phone: [facility] 12-02-2021 Lizaid (Moderna) Dr. Chriss Cruz Work Phone: [facility] 07-09-2021 Gutierrez (Moderna) Dr. Chriss Cruz Work Phone: [facility] 07-09-2021 Influenza, injectabl e, Madin Nicky Canine Kidney, preservative free, quadrivalent Chriss Cruz MD Work Phone: [facility] 07-09-2021 influenza virus vacc ine, unspecified formulation Chriss Cruz MD Work Phone: [facility] 12-02-2020 COVID-19 vaccine, fu ll dose (MODERNA) Nd Nurse Work Phone: [facility] 11-04-2020 COVID-19 vaccine, fu ll dose (MODERNA) Nd Nurse Work Phone: [facility] 02-24-2017 tetanus toxoid, redu jacky diphtheria toxoid, and acellular pertussis vaccine, adsorbed Nd Nurse Work Phone: [facility] 05-28-2014 pneumococcal polysaccharide vaccine, 23 valent Nd Nurse Work Phone: [facility] 04-02-2009 pneumococcal polysaccharide vaccine, 23 valent Nd Nurse Work Phone: [facility] 04-02-2009 Pneumococcal Vaccine [facility] Work Phone: 04-02-2009 pneumococcal vaccine , unspecified formulation [facility] 01-18-2007 pneumococcal polysaccharide vaccine, 23 valent Nd Nurse Work Phone: [facility] Work Phone: Payers Date Payer Category Payer Medicaid (Managed Care) [facility] [id number] 2017 Medicaid [employer] [facility] [id number] 2017-Present [phone] [address] [place] [address] Medicaid [id number] 2017 Medicaid [id number] 2017 Unknown [id number] 2016 Self-pay [id number] 2016 Unknown [id number] 1968 Unknown [id number] 2.840.1.092861.3.579.2. 594 1968 Unknown [id number] 2.840.1.154095.3.579.2. 594 1968 Unknown [id number] 2840.1.120448.3.579.2. 594 1968 Unknown [id number] 2.840.1.193013.3.579.2. 594 1968 Unknown [id number] 2.840.1.570492.3.579.2. 594 1968 Unknown [id number] 2.840.1.896538.3.579.2. 594 1968 Unknown [id number] .840.1.755463.3.579.2. 594 1968 Unknown [id number] .840.1.446323.3.579.2. 594 1968 Unknown [id number] 2.840.1.981788.3.579.2. 594 1968 Unknown [id number] 2.840.1.399545.3.579.2. 594 1968 Unknown [id number] 2.840.1.744545.3.579.2. 594 1968 Unknown [id number] 2.16.840.1.361030.3.579.2. 594 1968 Unknown [id number] 2..840.1.803923.3.579.2. 594 1968 Unknown [id number] 2.16.840.1.417387.3.579.2. 594 Unknown [id number] 2.840.1.038935.3.579.2. 462 Unknown [id number] 2.840.1.102730.3.579.2. 462 Unknown [id number] 2.840.1.762939.3.579.2. 462 Unknown [id number] 2.840.1.635377.3.579.2. 462 Unknown [id number] 2.840.1.350434.3.579.2. 462 Unknown [id number] 2.840.1.876793.3.579.2. 462 Unknown [id number] 2.840.1.566555.3.579.2. 462 Unknown [id number] 2.840.1.203152.3.579.2. 462 Unknown [id number] 2.840.1.863293.3.579.2. 462 Unknown [id number] 2.840.1.603991.3.579.2. 462 Unknown [id number] 2.840.1.787827.3.579.2. 462 Unknown [id number] 2.840.1.744632.3.579.2. 462 Unknown [id number] 2.840.1.339409.3.579.2. 462 Unknown [id number] 2.16840.1.150083.3.579.2. 462 Unknown [id number] 2.840.1.171468.3.579.2. 462 Unknown [id number] 2.16.840.1.890387.3.579.2. 462 Unknown [id number] 2.16.840.1.125750.3.579.2. 462 Unknown [id number] 2.16.840.1.146345.3.579.2. 462 Unknown [id number] 2.16.840.1.627862.3.579.2. 462 Unknown [id number] 2.16.840.1.366400.3.579.2. 462 Unknown [id number] 2.16.840.1.790581.3.579.2. 462 Unknown [id number] 2.840.1.065369.3.579.2. 462 Unknown [id number] 2.840.1.785415.3.579.2. 462 Unknown [id number] 2.840.1.869148.3.579.2. 462 Unknown [id number] 2.840.1.387014.3.579.2. 462 Unknown [id number] 2..840.1.696456.3.579.2. 462 Unknown [id number] 2.16.840.1.006130.3.579.2. 462 Unknown [id number] 2.16840.1.367975.3.579.2. 462 Unknown [id number] 2.840.1.559399.3.579.2. 462 Unknown [id number] 2.16.840.1.250049.3.579.2. 462 Unknown [id number] 2.16.840.1.383547.3.579.2. 462 Unknown [id number] 2.16.840.1.100548.3.579.2. 462 Unknown [id number] 2.16.840.1.311770.3.579.2. 462 Unknown [id number] 2.16.840.1.633678.3.579.2. 462 Unknown [id number] 2.16.840.1.143061.3.579.2. 462 Unknown [id number] 2.16840.1.814759.3.579.2. 462 Unknown [id number] 2.16.840.1.130832.3.579.2. 462 Unknown [id number] 2.16840.1.598792.3.579.2. 462 Unknown [id number] 2.16840.1.979441.3.579.2. 462 Unknown [id number] 2.840.1.669992.3.579.2. 462 Unknown [id number] 2.840.1.388216.3.579.2. 462 Unknown [id number] 2.840.1.561101.3.579.2. 462 Unknown [id number] 2.840.1.131819.3.579.2. 462 Unknown [id number] 2.840.1.939995.3.579.2. 462 Unknown [id number] 2.840.1.867461.3.579.2. 462 Unknown [id number] 2.840.1.348629.3.579.2. 462 Unknown [id number] 2.840.1.233624.3.579.2. 462 Unknown [id number] 2.16840.1.724783.3.579.2. 462 Unknown [id number] 2.16840.1.373367.3.579.2. 462 Unknown [id number] 2.16840.1.887229.3.579.2. 462 Unknown [id number] 2.16840.1.355535.3.579.2. 462 Unknown [id number] 2.16840.1.905093.3.579.2. 462 Unknown [id number] 2.16840.1.499425.3.579.2. 462 Social History Date Type Detail Facility Start: 07-16-2014 End: 06-04-2025 Tobacco smoking status NHIS Ex-smoker [facility] Work Phone: Start: 09-10-1986 End: 10-27-2003 History of tobacco use Current smoker [facility] Work Phone: End: 10-27-2003 History of tobacco use Cigar Smoker [facility] Work Phone: Start: 11-19-2021 End: 04-23-2025 Alcohol intake Current non-drinker of alcohol (finding) [facility] Start: 03-01-2012 History SDOH Alcohol Comment recovering alcoholic, quit 2003 [facility] Start: 1970 Sex Assigned At Not on file [facility] Start: 11-06-2021 End: 11-16-2021 Exposure to SARS-CoV-2 (event) Unable to assess [facility] Work Phone: Start: 11-12-2021 End: 06-17-2022 Exposure to SARS-CoV-2 (event) Not sure [facility] Start: 01-26-2022 End: 07-31-2023 Tobacco smoking status NJIS Unknown if ever smoked [facility] Start: 12-21-2020 None [facility] Start: 12-21-2020 Spouse/ Signif icant Other [facility] Start: 12-24-2020 Cigarettes [facility] Start: 1970 Sex Assigned At Male [facility] Start: 09-10-1986 End: 10-27-2003 History of tobacco use Cigarette Smoker [facility] Start: 07-16-2014 End: 04-23-2025 Cigarettes smoked current (pack per day) - Reported 2 [facility] Start: 07-16-2014 End: 09-16-2024 Tobacco use and exposure Smokeless tobacco non-user [facility] Start: 02-01-2023 End: 04-23-2025 Tobacco use panel [facility] National Score (1-10 0), lower number is lower risk 70 [facility] Start: 08-18-2015 Sex Male (finding) [facility] Medical Equipment Procedure Code Equipment Code Equipment Origin al Text Equipment Identifier Dates Insertion, catheter, hemodialysis Double-lumen haemodialysis catheter, implantable [id number] FDA Start: 07-05-2024 EGD, with monitored anesthesia care Oesophageal endoscopic ligator, single-useHaemorrhoi d ligator [id number] FDA Start: 08-02-2023 Creation, AV fistula Ligation cl ip, metallic [id number] FDA Start: 07-23-2024 Creation, AV fistula Ligation cl ip, metallic [id number] FDA Start: 07-23-2024 [id number] Start: 02-07-2017 End: 06-23-2023 Comment on above: [...] Pen Needle, Diab etic (Easy Comfort Pen [place]) 31 gauge x 1/4 needle Start: 08-17-2017 End: 11-13-2017 Pen Needle, Diab etic (Easy Comfort Pen [place]) 31 gauge x 1/4 needle Start: 11-13-2017 [...] Pen Needle, Diab etic (Easy Comfort Pen [place]) 31 gauge x 1/4 needle Start: 08-17-2017 End: 11-13-2017 Pen Needle, Diab etic (Easy Comfort Pen [place]) 31 gauge x 1/4 needle Start: 11-13-2017 [...] Pen Needle, Diab etic (Easy Comfort Pen [place]) 31 gauge x 1/4 needle Start: 08-17-2017 End: 11-13-2017 Pen Needle, Diab etic (Easy Comfort Pen [place]) 31 gauge x 1/4 needle Start: 11-13-2017 [...] Pen Needle, Diab etic (Easy Comfort Pen [place]) 31 gauge x 1/4 needle Start: 08-17-2017 End: 11-13-2017 Pen Needle, Diab etic (Easy Comfort Pen [place]) 31 gauge x 1/4 needle Start: 11-13-2017 [...] Pen Needle, Diab etic (Easy Comfort Pen [place]) 31 gauge x 1/4 needle Start: 08-17-2017 End: 11-13-2017 Pen Needle, Diab etic (Easy Comfort Pen [place]) 31 gauge x 1/4 needle Start: 11-13-2017 [...] Pen Needle, Diab etic (Easy Comfort Pen [place]) 31 gauge x 1/4 needle Start: 08-17-2017 End: 11-13-2017 Pen Needle, Diab etic (Easy Comfort Pen [place]) 31 gauge x 1/4 needle Start: 11-13-2017 [...] Pen Needle, Diab etic (Easy Comfort Pen [place]) 31 gauge x 1/4 needle Start: 08-17-2017 End: 11-13-2017 Pen Needle, Diab etic (Easy Comfort Pen [place]) 31 gauge x 1/4 needle Start: 11-13-2017 [...] Pen Needle, Diab etic (Easy Comfort Pen [place]) 31 gauge x 1/4 needle Start: 08-17-2017 End: 11-13-2017 Pen Needle, Diab etic (Easy Comfort Pen [place]) 31 gauge x 1/4 needle Start: 11-13-2017 [...] Pen Needle, Diab etic (Easy Comfort Pen [place]) 31 gauge x 1/4 needle Start: 08-17-2017 End: 11-13-2017 Pen Needle, Diab etic (Easy Comfort Pen [place]) 31 gauge x 1/4 needle Start: 11-13-2017 [...] Pen Needle, Diab etic (Easy Comfort Pen [place]) 31 gauge x 1/4 needle Start: 08-17-2017 End: 11-13-2017 Pen Needle, Diab etic (Easy Comfort Pen [place]) 31 gauge x 1/4 needle Start: 11-13-2017 [...] Pen Needle, Diab etic (Easy Comfort Pen [place]) 31 gauge x 1/4 needle Start: 08-17-2017 End: 11-13-2017 Pen Needle, Diab etic (Easy Comfort Pen [place]) 31 gauge x 1/4 needle Start: 11-13-2017 [...] Pen Needle, Diab etic (Easy Comfort Pen [place]) 31 gauge x 1/4 needle Start: 08-17-2017 End: 11-13-2017 Pen Needle, Diab etic (Easy Comfort Pen [place]) 31 gauge x 1/4 needle Start: 11-13-2017 [...] Pen Needle, Diab etic (Easy Comfort Pen [place]) 31 gauge x 1/4 needle Start: 08-17-2017 End: 11-13-2017 Pen Needle, Diab etic (Easy Comfort Pen [place]) 31 gauge x 1/4 needle Start: 11-13-2017 [...] Pen Needle, Diab etic (Easy Comfort Pen [place]) 31 gauge x 1/4 needle Start: 08-17-2017 End: 11-13-2017 Pen Needle, Diab etic (Easy Comfort Pen [place]) 31 gauge x 1/4 needle Start: 11-13-2017 [...] Pen Needle, Diab etic (Easy Comfort Pen [place]) 31 gauge x 1/4 needle Start: 08-17-2017 End: 11-13-2017 Pen Needle, Diab etic (Easy Comfort Pen [place]) 31 gauge x 1/4 needle Start: 11-13-2017 [...] Pen Needle, Diab etic (Easy Comfort Pen [place]) 31 gauge x 1/4 needle Start: 08-17-2017 End: 11-13-2017 Pen Needle, Diab etic (Easy Comfort Pen [place]) 31 gauge x 1/4 needle Start: 11-13-2017 [...] Pen Needle, Diab etic (Easy Comfort Pen [place]) 31 gauge x 1/4 needle Start: 08-17-2017 End: 11-13-2017 Pen Needle, Diab etic (Easy Comfort Pen [place]) 31 gauge x 1/4 needle Start: 11-13-2017 [...] Pen Needle, Diab etic (Easy Comfort Pen [place]) 31 gauge x 1/4 needle Start: 08-17-2017 End: 11-13-2017 Pen Needle, Diab etic (Easy Comfort Pen [place]) 31 gauge x 1/4 needle Start: 11-13-2017 [...] Pen Needle, Diab etic (Easy Comfort Pen [place]) 31 gauge x 1/4 needle Start: 08-17-2017 End: 11-13-2017 Pen Needle, Diab etic (Easy Comfort Pen [place]) 31 gauge x 1/4 needle Start: 11-13-2017 [...] Pen Needle, Diab etic (Comfort Ez Pen [place]) 31 gauge x 5/16 needle Start: 12-18-2024 [...] Pen Needle, Diab etic (Easy Comfort Pen [place]) 31 gauge x 1/4 needle Start: 08-17-2017 End: 11-13-2017 Pen Needle, Diab etic (Easy Comfort Pen [place]) 31 gauge x 1/4 needle Start: 11-13-2017 [...] Pen Needle, Diab etic (Comfort Ez Pen [place]) 31 gauge x 5/16 needle Start: 12-18-2024 [...] Pen Needle, Diab etic (Easy Comfort Pen [place]) 31 gauge x 1/4 needle Start: 08-17-2017 End: 11-13-2017 Pen Needle, Diab etic (Easy Comfort Pen [place]) 31 gauge x 1/4 needle Start: 11-13-2017 [...] Pen Needle, Diab etic (Comfort Ez Pen [place]) 31 gauge x 5/16 needle Start: 12-18-2024 [...] Pen Needle, Diab etic (Easy Comfort Pen [place]) 31 gauge x 1/4 needle Start: 08-17-2017 End: 11-13-2017 Pen Needle, Diab etic (Easy Comfort Pen [place]) 31 gauge x 1/4 needle Start: 11-13-2017 [...] Pen Needle, Diab etic (Comfort Ez Pen [place]) 31 gauge x 5/16 needle Start: 12-18-2024 [...] Pen Needle, Diab etic (Easy Comfort Pen [place]) 31 gauge x 1/4 needle Start: 08-17-2017 End: 11-13-2017 Pen Needle, Diab etic (Easy Comfort Pen [place]) 31 gauge x 1/4 needle Start: 11-13-2017 [...] Pen Needle, Diab etic (Comfort Ez Pen [place]) 31 gauge x 5/16 needle Start: 12-18-2024 [...] Pen Needle, Diab etic (Easy Comfort Pen [place]) 31 gauge x 1/4 needle Start: 08-17-2017 End: 11-13-2017 Pen Needle, Diab etic (Easy Comfort Pen [place]) 31 gauge x 1/4 needle Start: 11-13-2017 [...] Pen Needle, Diab etic (Comfort Ez Pen [place]) 31 gauge x 5/16 needle Start: 12-18-2024 [...] Pen Needle, Diab etic (Easy Comfort Pen [place]) 31 gauge x 1/4 needle Start: 08-17-2017 End: 11-13-2017 Pen Needle, Diab etic (Easy Comfort Pen [place]) 31 gauge x 1/4 needle Start: 11-13-2017 End: 05-01-2018 Syringe With Nee dle (Bd Luer-Jurgen Syringe) 3 mL 25 gauge x 1 syringe Start: 10-04-2018 End: 10-04-2018 Syringe With Nee dle, Safety (Bd Integra Syringe) 3 mL 25 gauge x 1 syringe Start: 09-06-2018 End: 10-04-2018 Blood Sugar Diagnostic (Onetouch Verio Test Strips) strip Start: 10-31-2024 Pen Needle, Diab etic (Comfort Ez Pen [place]) 31 gauge x 5/16 needle Start: 12-18-2024 [...] Pen Needle, Diab etic (Easy Comfort Pen [place]) 31 gauge x 1/4 needle Start: 08-17-2017 End: 11-13-2017 Pen Needle, Diab etic (Easy Comfort Pen [place]) 31 gauge x 1/4 needle Start: 11-13-2017 [...] Facility 12-09-2023 Functional status Up ad jessica [facility] Work Phone: 11-26-2022 Functional status Chair [facility] Work Phone: 03-18-2015 Are you deaf, or do you have serious difficulty hearing No 03/18/2015 1:06 PM Sarah Baum LPN No [facility] 03-18-2015 Are you blind, or do you have serious difficulty seeing, even when wearing glasses No 03/18/2015 1:06 PM Sarah Baum LPN No [facility] 03-18-2015 Do you have serious difficulty walking or climbing stairs No 03/18/2015 1:06 PM Sarah Baum LPN No [facility] 03-18-2015 Do you have difficul ty dressing or bathing No 03/18/2015 1:06 PM Sarah Baum LPN No [facility] 03-18-2015 Because of a physica l, mental, or emotional condition, do you have difficulty doing errands alone such as visiting a physician's office or shopping No 03/18/2015 1:06 PM Sarah Baum LPN No [facility] Mental Status Date Assessment Result Facility 07-02-2024 Cognitive function Voice/Name [facility] Work Phone: 12-18-2023 Cognitive function Level Of Cons ciousness Awake;Alert;Appropriate;Fo davidws Commands [facility] Work Phone: 12-09-2023 Cognitive function Voice/Name [facility] Work Phone: 12-07-2023 Cognitive function Level Of Cons ciousness Awake;Alert;Appropriate;Fo llows Commands [facility] Work Phone: 10-16-2023 Cognitive function Level Of Cons ciousness Awake;Alert;Appropriate;Fo llows Commands [facility] Work Phone: 08-09-2023 Cognitive function Voice/Name [facility] Work Phone: 08-02-2023 Cognitive function Voice/Name [facility] Work Phone: 05-25-2023 Cognitive function Level Of Cons ciousness Awake;Alert;Appropriate [facility] Work Phone: 05-22-2023 Cognitive function Awake;Alert;A ppropriate;Megan [facility] Work Phone: 04-13-2023 Cognitive function Arousable To Voice/Nam e [facility] Work Phone: 02-14-2023 Cognitive function Voice/Name [facility] Work Phone: 11-26-2022 Cognitive function Voice/Name [facility] Work Phone: 11-23-2022 Cognitive function Level Of Cons ciousness Awake;Alert;Appropriate;Dr howard [facility] Work Phone: 11-15-2022 Cognitive function Voice/Name [facility] Work Phone: 02-13-2022 Cognitive function Level Of Cons ciousness Awake [facility] Work Phone: 01-26-2022 Cognitive function Level Of Cons ciousness Awake;Alert;Appropriate;Megan [facility] Work Phone: 11-21-2021 Cognitive function Level Of Cons ciousness Awake;Alert;Appropriate;[facility] Work Phone: 03-18-2015 Because of a physica l, mental, or emotional condition, do you have serious difficulty concentrating, remembering, or making decisions No 03/18/2015 1:06 PM Sarah Baum LPN No [facility] Clinical Notes 06-03-2014 to 06-18-2025 Note Date & Type Note Facility 06-18-2025 Progress note [facility] 06-04-2025 History and physi carl note Note Date/Time June 04, 2025 12:08pm [facility] Medical Records Department [address] [place] [address] History & Physical Exam 06/04/25 1206 MR#: [id number] Acct: [id number] Name: REGINALDO HUFFMAN Rep #:[id number] : 1970 54 From: Kirk Fernandez MD PCP: Dr. Kimberlyn East MD Status:REG SD C Location: [facility] HPI - General HPI Narrative REGINALDO HUFFMAN, is a 54 M who presents with prolonged bleeding from fistula. [facility] Medical History Vascular dialysis catheter in place [...] Unkno wn Rx 01/10 (Comfort EZ Pen [place]) blood sugar diagnostic (True #100 ea 12/30/24 [...] East MD; Dr. Kirk Fernandez MD~ Signed [facility] Work Phone: 1(200) 808-990010-08-2025 History and physical note [facility] Medical Records Department [address] [place] [address] History & Physical Exam 06/04/25 1206 MR#: [id number] Acct: [id number] Name: REGINALDO HUFFMAN Rep #:[id number] : 1970 54 From: Kirk Fernandez MD PCP: Dr. Kimberlyn East MD Status:REG SD C Location: [facility] HPI - General HPI Narrative REGINALDO HUFFMAN, is a 54 M who presents with prolonged bleeding from fistula. [facility] Medical History Vascular dialysis catheter in place [...] Unkno wn Rx 16 (Comfort EZ Pen [place]) blood sugar diagnostic (True #100 ea 12/30/24 [...] East MD; Dr. Kirk Fernandez MD~ Signed [facility]10-08-2025 [facility]08-27-2025 History of Present illness Narrative* Lillian Hall, [...] advanced fibrosis. Results were reviewed at [facility] with the consensus of the group being [...] Laterality: N/A; Surgeon: Marshal Paris MD; Location: [facility] ([facility]) BX TRANSCATHETER N/A 01/27/2025 Laterality: N/A; Surgeon: Marshal Paris MD; Location: [facility] ([facility]) INTERPRETATION TRANSCATHETER BX N/A 01/27/2025 Laterality: N/A; Surgeon: Marshal Paris MD; Location: [facility] ([facility]) EGD W/ BX Nov 2013 COLECTOMY [...] HVPG 3 EGD (08/2024) -- Performed in [place], [place] --- Eradicated varices EGD (02/2024) -- Performed in [place] -- EV with stigmata of bleeding [...] remission with his last colonoscopy in 11/2023, [id number] HLD. Of note, his chart mentions a [...] in the care of Reginaldo Huffman. Lillian Hlal DO Vp Purchasing of Clinical Medicine Division of Gastroenterology, Hepatology and Nutrition [facility] Pager: [phone] * Nicholas Martinez - 04/23/2025 2:30 PM EDT Patient verified name and date of with this MA [facility] Instructions* Patient Instructions* Lillian Hall DO - 04/23/2025 2:30 PM EDT Labs today Talk to your local [employer] about a scope in 08/2025 Follow up in 1year documented in this encounter[facility] Evaluation note * Diagnosis Onset Date Resolution [...] Essential tremor inactive June 30, 2025 9:49am [place] [facility] Work Phone: 1(491) 893-497806-27-2025 Evaluation note* Diagnosis Onset Date Resolution Status Admit Date ESRD (end stage renal diseas e) on dialysis acute February 21, 2025 8:29am AVF (arteriovenous fistula) chronic February 21, 2025 8:29am History of colon cancer deleted [facility] 2024 2:00pm Right carotid bruit acute 2024 7:44am Essential tremor chronic March 292024 7:44am Polyneuropathy chronic March 7:44am Trigeminal neuralgia chronic 2024 7:44am Fatigue noneactive April 21, 7:44am [place] [employer] Work Phone: 1(540) 432-563606-27-2025 Evaluation note* Diagnosis Onset Date Resolution Status [...] colon cancer deleted A ugust 2024 11:30am [facility] Work Phone: 1(951) 466-182506-27-2025 Evaluation note* Diagnosis Onset Date Resolution Status [...] esophageal lesion chronic May 07, 2025 10:11am [facility] Work Phone: 1(440) 437-400106-27-2025 Evaluation note* Diagnosis Onset Date Resolution Status [...] Arteriovenous fistula stenosis acute June 04 8:03am [facility] Work Phone: 1(461) 632-336406-02-2025 Nurse Note* Nursing Notes - Sofia Cardoza [...] car for discharge home per MD order. [facility]06-02-2025 Miscellaneous Notes* Nursing Notes - Sofia [...] 10 CSP: 3 HVP [facility] Nurse Note* Nursing Notes - Sofia Cardoza RN - 01/27/2025 3:41 PM EDT Patient skipped his AM dose of 0.1mg clonidine, post procedure now with asymptomatic HTN with SPB 190-200 (patient was this elevated prior to procedure as well. Discussed findings with 0.2mg of clonidine administered with goal systolic BP 170. [facility]06-02-2025 Nurse Note* Nursing Notes - Kimi [...] Free Hepatic Pressure: 10 CSP: 3 HVP [facility]06-02-2025 Hospital Discharge instructions* Discharge Instructions* Lizbet Vannesa Stapleton, ENVELOPE ADDRESSER-TABLE GAMES FLOOR SUPERVISOR - 01/27/2025 12:01 PM EDT Home Care [...] or on Weekends, please call the Hospital Insect Control Inspector at [phone] and ask them for the Interventional Senior Games Technician On-Call documented in [facility] encounter[facility] History and physical note* WILLIAM Carmen [...] on . K 5.6 today. Lizbet Stapleton APRN-TABLE GAMES FLOOR SUPERVISOR 01/27/2025 11:54 AM Cosigned by Marshal Paris MD at 01/27/2025 12:25 PM EDT [facility] Work Phone: 1(957) 867-638906-02-2025 History and physical note* WILLIAM Carmen - [...] 12:25 PM EDT documented in this encounterU [facility] History of Present illness Narrative* Lillian Hall, - 12/25/2024 3:00 PM EDT -Referring Provider for today's consult: Tyrese Lnage MBBS -Primary Care Provider: Kimberlyn East History [...] EV hemorrhage in Summer 2023 s/p EBL ([place], [place]) in the setting of hepatosplenomegaly on [...] study. Procedures: EGD (08/2024) -- Performed in [place], [place] --- Eradicated varices EGD (02/2024) -- Performed in [place] -- EV with stigmata of bleeding s/p EBL Assessment and Plan Reginaldo Huffman is a 54 y.o. male with a past medical history of esophageal varices complicated by EV hemorrhage in Summer 2023 s/p EBL ([place], [place]) in the setting of hepatosplenomegaly on [...] care of Reginaldo Huffman. Lillian Hall DO Vp Purchasing of Clinical Medicine Division of Gastroenterology, Hepatology and Nutrition [facility] Pager: [phone] * Coretta Snyder LPN - 12/25/2024 3:00 PM EDT Patient verified name and date of with this PHYSICAL GEOGRAPHER. Pt. Is accompanied by his mother today. documented in this encounterOSU [facility]04-30-2025 Instructions* Patient Instructions* Lillian Hall DO - 12/25/2024 3:00 PM EDT Complete labs today Schedule CT scan You'll be called to schedule liver biopsy Follow up in 4months with me documented in this encounterU [facility] History of Present illness Narrative* Dara Weaver [...] Radiology for port removal. documented in [facility] encounterAv[facility] Evaluation note * Diagnosis Onset Date [...] (arteriovenous fistula) chronic February 21, 2025 8:29am [facility] Work Phone: [phone]) 649-249303-26-2025 Telephone encounter Note* Telephone Encounter - Lurdes Haynes RN - 11/20/2024 7:52 AM EDT Called patient to see if he was planning on coming to today's evaluation starting at 8a. I had to leave a . Lurdes Haynes RN November 20, 2024 7:52 AM [facility]03-26-2025 Miscellaneous Notes* Telephone Encounter - Lurdes Haynes RN - 11/20/2024 7:52 AM EDT Called patient to see if he was planning on coming to today's evaluation starting at 8a. I had to leave a VM. Lurdes Haynes RN November 20, 2024 7:52 AM documented in this encounterZanesville City Hospital03-14-2025 History of Present illness Narrative* MARIXA Cueva - 11/08/2024 2:00 PM EDT Transplant Recipient Psychosocial Evaluation Demographics: Patient is a 54 y.o., White, Single, male, who presented for a kidney transplant evaluation. Patient was AOx4. Transplant Operator/Assistant Foreman role/function was explained and reviewed. The patient was informed that the results of this assessment will be shared with the referring provider and the transplant team. The patient verbalized understanding of this information. The [facility] psychosocial assessment consent form has been explained to patient and has been signed. Patient is completing this evaluation with mother Louis Huffman in the Outpatient setting. Operator/Assistant Foreman educated patient on the benefits of completing/filing advanced directives and resources were offered and questions regarding same were answered by this social services analyst. Patient identifies with NONE christian. Patient confirms being a [place] Citizen. Patient's primary language is Gambian. Patient denies potential donors. Donor cards and [...] my diabetes. Patient is on hemodialysis at [facility], attends [employer] and [employer], and started [...] of calendar.Patient educated on benefits of utilizing [employer] and given information on how to obtain [...] that his mom owns; he lives in [place], [place] (2.[place] hours from [facility]). Patient resides [...] have secondary caregiver complete interview with social services analyst. He confirms being comfortable asking for help. [...] pancreatitis, and hypertension. He has access to [employer] in regards to financial means pre/post-transplant. Patient [...] hospitalizations. Patient reports he was hospitalized at [facility] in 1999 after attempting suicide with a [...] Amount: 1/5 of vodka or other liquor (3831-3909) Type: liquor History of DUIs: no History [...] & support to complete interview with social services analyst Complete education with support Continue mental health treatment AZAR Cueva, RAHEEM, [facility] Outpatient Transplant Social Work [facility] The above assessment was conducted by means of corroborating information from patient's chart review, support person(s) report, multiple evidence based clinical tools and a modified version of the Kike Integrated Psychosocial Assessment for Transplant (SIPAT) and the SIPAT-General TXP Long FormSabino et al, 2008; Sabino et al, Psychosomatics 2012. documented in this encounterOSU [facility]03-14-2025 History of Present illness Narrative* RYANNE Perez [...] and initiated on dialysis in June 2024. [place] kidney biopsy was not done. Notable PMH: [...] his mother. 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 Single; never ; [...] transplantation but will be reviewed by our senior property manager. 4. 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 These are in remission right now. 5. He attended our transplant education session and seems to understand the risks and benefits of kidney transplantation. 6. He will be seen by our dental assistant medical assistant today for a detailed pyschosocial evaluation as [...] any questions. Sincerely, Tyrese Lange MD Clinical ocean freight forwarder Transplant Lean Manufacturing Leader documented in this encounterOSU [facility]03-14-2025 Instructions* Patient Instructions* Oswald Coates RN - [...] is finished. AFTER CLINIC VISIT Transplant Psychology: [phone] Opt 1 If Transplant Social Work refers you to Transplant Psychology, before you leave the clinic, please stop at the front desk manager, and schedule this appointment. Your support person will need to be present for this appointment. The following orders have been placed. To schedule, please call [phone]. Echocardiogram Cardiac Stress Test CT Abdominal/Pelvis angiogram Please work with your Primary Care Provider (PCP) or machine ii cutter to schedule these tests when appropriate and contact your Concrete Carpenter upon completion. Cancer Screenings: Colonoscopy (Age 50>) Dental Clearance: Please work with your dentist to schedule an exam to fill out and fax the Pre- Transplant Dental Form to the number listed on it. Financial Assessment: If you have not completed a financial assessment, one will be sent to you in Knotch or emailed to you. Please call your marketing financial analyst to complete your financial assessment or with any questions. Princess Mccollum [phone]. Today in clinic you were seen by RYANNE Contreras and your Pre Concrete Carpenter Oswald Coates. It is the expectation of [...] be sent by either your PCP or machine ii cutter. [facility] transplant will not be able to [...] it. We offer the vaccine at the [facility] on the ground floor, or you can contact a local health department. You may also speak to your Primary Care Provider (PCP) or Lean Manufacturing Leader to get vaccinated. documented in this encounterOSU [facility]03-05-2025 [facility]03-05-2025 Evaluation note* Diagnosis Onset Date Resolution Status [...] (arteriovenous fistula) chronic December 20, 2024 9:17am [place] [employer] Work Phone: 1(241) 889-623401-21-2025 NoteHNO ID: [id number] Author: DIONE LOVE RN Service: ? Author Type: Registered Nurse Type: Progress Notes Filed: 09/18/2024 08:56 Note Text: Kidney PreTransplant funeral service licensee Referring physician:Dialysis Center Neprhologist: Radha Kelley Referral [...] site. - [facility] History of Present illness Narrative* Dione Love RN - 09/17/2024 3:39 PM EST Kidney PreTransplant funeral service licensee Referring physician:Dialysis Center Neprhologist: Radha Kelley Referral [...] are negative for neoplasm documented in this encounterZanesville City Hospital01-15-2025 Telephone encounter Note * Telephone Encounter - Kenneth Lake - 09/11/2024 12:20 PM EST KIDNEY TRANSPLANT REFERRAL (enter above which organ the patient needs; Kidney, Pancreas or Kidney/Pancreas) Is this referral for a Safety Net or HIV Patient? No (Safety Net = Pt needing an additional transplant within 12 months for any organ) Reginaldo Huffman [phone] Spoke with: Patient Best Contact FOR PANCREAS AND KIDNEY/PANCREAS TRANSPLANT AGE 55+ is a HARD STOP If patient is NOT on Dialysis & has a GFR >21 is a HARD STOP REFERRING ECHOCARDIOGRAPHER / PHYSICIAN: Radha Nayak Have you ever [...] referral for transplant to your ([place]) Medicaid leather case finisher? No If the patient has Medicare A/B [...] Light activity COPD/Emphysema/Other pulmonary problem: No Dialysis: [facility] Days: Dialysis start date: 05/12/2024 If [...] [facility] Hx of Hypertension? Yes Hx of FL/Heart Attack? No Hx of TIA/CVA or Stroke? No Are you on a blood thinner? No If YES which medication are you on? N/A Have you had a CABG or STENTS? No Have you ever had a Stress Test? [facility]. [address] [place] [address]. [phone]. 2019 Have you ever had an Echo? No Have you ever had a Cardiac Cath? No CT Abdomen/Pelvis: Yes. If yes, date and location: 4 month ago. [facility]. [address] [place] [address]. . Mammogram: No Pap Test: No Colonoscopy: [facility]. [address] [place] [address]. [phone]. 2019. 4month ago. Hx of Lupus? No Sickle Cell Trait or Disease: No Have you had any prior surgeries? yes Colon cancer 2013 Do you have a potential living donor? No MyCHART Is the patient signed up for Edge[employer]? No If YES - send patient the Kidney/Pancreas New Referral Message. If NO - obtain their email address AND send Zubkahart sign up information: email address: [email or web address] Is the patient okay with having a Virtual Appt: No ( patient does not have a computer) What facilities do we need outside records from: [facility]. [address] [place] [address]. [phone] Have records been retrieved from Care Everywhere: Yes. Have records been requested from [facility]-Health? Yes Additional Comments about patient/evaluation: No Route the referral to the Kidney Txp dull coat mill operator, Dione Love. Kenneth Lake [facility]01-15-2025 Miscellaneous Notes* Telephone Encounter - Kenneth aLke - 09/11/2024 12:20 PM EST KIDNEY TRANSPLANT REFERRAL (enter above which organ the patient needs; Kidney, Pancreas or Kidney/Pancreas) Is this referral for a Safety Net or HIV Patient? No (Safety Net = Pt needing an additional transplant within 12 months for any organ) Reginaldo Huffman [phone] Spoke with: Patient Best Contact FOR PANCREAS AND KIDNEY/PANCREAS TRANSPLANT AGE 55+ is a HARD STOP If patient is NOT on Dialysis & has a GFR >21 is a HARD STOP REFERRING ECHOCARDIOGRAPHER / PHYSICIAN: Radha Nayak Have you ever been evaluated for kidney/pancreas transplant? No If YES, where? N/A Status of listing/evaluation: N/A Have you had a previous transplant? No Have you had one or both kidneys removed: No Reason: N/A OUT OF STATE MEDICAID PATIENTS: APC - run the Medicaid through [facility] to determine if the coverage is Out [...] referral for transplant to your ([place]) Medicaid leather case finisher? No If the patient has Medicare A/B [...] Light activity COPD/Emphysema/Other pulmonary problem: No Dialysis: [facility] : Dialysis start date: 05/12/2024 If [...] [facility] Hx of Hypertension? Yes Hx of FL/Heart Attack? No Hx of TIA/CVA or Stroke? No Are you on a blood thinner? No If YES which medication are you on? N/A Have you had a CABG or STENTS? No Have you ever had a Stress Test? [facility]. [address] [place] [address]. [phone]. 2019 Have you ever had an Echo? No Have you ever had a Cardiac Cath? No CT Abdomen/Pelvis: Yes. If yes, date and location: 4 month ago. [facility]. [address] [place] [address]. . Mammogram: No Pap Test: No Colonoscopy: [facility]. [address] [place] [address]. [phone]. 2019. 4month ago. Hx of Lupus? No Sickle Cell Trait or Disease: No Have you had any prior surgeries? yes Colon cancer 2013 Do you have a potential living donor? No MyCHART Is the patient signed up for Knotch? No If YES - send patient the Kidney/Pancreas New Referral Message. If NO - obtain their email address AND send Zubkahart sign up information: email address: [email or web address] Is the patient okay with having a Virtual Appt: No ( patient does not have a computer) What facilities do we need outside records from: [facility]. [address] [place] [address]. [phone]. 2019 Have records been retrieved from Care Everywhere: Yes. Have records been requested from E-Health? Yes Additional Comments about patient/evaluation: No Route the referral to the Kidney Txp dull coat mill operator, Dione Love. Kenneth Lake documented in this encounterZanesville City Hospital11-26-2024 [facility]11-13-[facility]04-12-[facility] Progress note Author Alfredo Ag [facility] December 08, 2023 4:13pm Note Date/Time December 08, 2023 4:1 3pm [facility] Medical Records Department [address] [place] [address] Progress Note - Hospitalist 12/08/23 1608 MR#: [id number] Acct: [id number] Name: REGINALDO HUFFMAN Rep #:[id number] : 1970 53 From: Alfredo Ag DO PCP: Luciana Garcia DO Status:ADM I N Location: [place] [address] Reason for Visit Reason for Visit: Diagnoses [...] % (Auto) 61.2, Lymph % (Auto) 31.0, White % (Auto) 5.3, Eos % (Auto) 1.3, [...] % (Auto) 68.3, Lymph % (Auto) 25.6, White % (Auto) 3.7, Eos % (Auto) 1.1, [...] 35 minutes Charges/Coding Visit Charges Inpatient E&M: 25258 Subs Hosp L2 12/08/23 1613 <Electronically signed by Alfredo Ag DO> Cosigner Signature (if applicable): CC: ~ Signed [facility] Work Phone: 1(609) 682-429004-12-2024 History and physical note Author Landry James [facility] December 08, 2023 6:11am Note Date/Time December 07, 2023 8:5 4pm [facility] Medical Records Department [address] [place] [address] H&P Exam - Hospitalist 12/07/232039 MR#: [id number] Acct: [id number] Name: REGINALDO HUFFMAN Rep #:[id number] : 1970 53 From: Landry Brunner DO PCP: Luciana Garcia DO Status:ADM I N Location: [place] [address] HPI - General General Date of Admission: [...] of the nephrology service who presents to [facility] ER complaining of worsening kidney function, [...] is expectedto be greater than 48 hours. [facility] Medical History Arthritis Asthma Carpal tunnel syndrome [...] % (Auto) 61.2, Lymph % (Auto) 31.0, White % (Auto) 5.3, Eos % (Auto) 1.3, [...] 55 minutes. Charges/Coding Visit Charges Inpatient E&M: 55137 Init Hosp L2 12/08/23 0611 <Electronically signed by Landry Barber DO> Cosigner Signature (if applicable): CC: Dr. Landry Barber DO; Luciana Garcia DO~ Signed [facility] Work Phone: 1(326) 106-925104-12-2024 Discharge summary Author Kirk Schneider [facility] December 08, 2023 1:32am Note Date/Time December 07, 2023 7:0 3pm [facility] Medical Records Department [address] [place] [address] Emergency Department Summary 12/07/23 MR#: [id number] Acct: [id number] Name: REGINALDO HUFFMAN Rep #:[id number] : 1970 53 From: Fransisco VALENTINE PCP: Luciana Garcia DO Status:ADM I N Location: [place] [address] HPI <SERGE Salazar - Last Filed: 12/07/23 [...] been well-maintained. He is here for evaluation [facility] <SERGE Salazar - Last Filed: 12/07/23 20:26> [facility] Medical History Arthritis Asthma Carpal tunnel syndrome [...] Oxygen Delivery Method Room Air Room Air [facility] <SERGE Salazar - Last Filed: 12/07/23 20:26> [facility] Lab Data Labs: Laboratory Results - last 24 hr 12/07/23 19:02 WBC 5.3 RBC 2.82 L Hgb 8.6 L Hct 25.2 L MCV 89.4 MCH 30.5 MCHC 34.1 RDW Std Deviation 43.9 RDW Coeff of Ever 13.5 Plt Count 202 MPV 10.5 Immature Gran % (Auto) 0.600 Neut % (Auto) 61.2 Lymph % (Auto) 31.0 White % (Auto) 5.3 Eos % (Auto) 1.3 [...] Normal sinus rhythm, rate of 74 bpm, ME interval 154 ms, QRS duration 96 ms, [...] Schneider, DO - Last Filed: 12/07/23 20:30> [facility] Narrative Medical decision making narrative: I have [...] % (Auto) 61.2 Lymph % (Auto) 31.0 White % (Auto) 5.3 Eos % (Auto) 1.3 [...] chronic illness Disposition Disposition: Acute Care Hospital [facility] What to do if you have Problems For any increased pain, shortness of breath, bleeding, nausea or vomiting, chestpain, or any unexpected problems, contact your Primary Care Provider. Call [facility] ([phone]) or report to the closest Emergency Room. Call 911 if necessary. 12/07/232025 <Electronically signed by Fransisco VALENTINE> Cosigner Signature (if applicable): 12/08/23131 <Electronically signed by Kirk Schneider DO> CC: Luciana Garcia, ~ Signed [facility] Work Phone: 1(141) 836-886112-06-2023 History and physical note Author Aquiles Warren [facility] August 02, 2023 6:27am Note Date/Time August 02, 2023 6 :27am [facility] Medical Records Department [address] [place] [address] History & Physical Exam 08/02/23625 MR#: [id number] Acct: [id number] Name: REGINALDO HUFFMAN Rep #:[id number] : 1970 52 From: Aquiles Warren DO PCP: Luciana Garcia DO Status:REG S DC Location: [place] [address] History and Physical Date of Admission: 08/02/23 REGINALDO HUFFMAN, is a 52 M who presents to the office today for Prior imaging: ? CT abd/pel 9..19 stable hepatosplenomegaly; LUQ varices; renal cysts; postsurgical changes of right hemicolectomy. ? CT abd/pel 3. normal liver, gallbladder; mild splenomegaly with adjacent calcified structure, ?prior inflammation; LUQ varicosities stable,r/t splenic vein thrombosis, stable. *[facility] hospitalization 3.-4..23. ED presentation for syncopal [...] lesion of esophagus; declines colonoscopy; continue atenolol. [facility] hematology for anemia with CKD, colon [...] Judgment: judgment good Quality Reporting Tobacco Screening ([facility] 138) Smoking Status: Former smoker Assessment and [...] Luciana Garcia DO; Aquiles Warren DO~ Signed [facility] Work Phone: 1(436) 863-942012-06-2023 Procedure [facility] 08-02-2023 Procedure [facility]10-27-2023 History of Present illness Narrative* Candy Penn APRN.TABLE GAMES FLOOR SUPERVISOR - 06/23/2023 3:15 PM EDT Reason for [...] to start care with Dr. Griffin with [place] being closer to his home. Has an appt set for next month Also reports he will start with a new primary care provider He is seeing nephrology in [place] ([facility] Under the care of hem/onc for colon [...] a day prn. 30 tablet 5 omega 5-sta-acg-fish oil 300-400-1,000 mg cap Take 1 capsule [...] FOR INSULIN INJECTIONS 800 Each 0 Insulin [place], Disposable, (PEN NEEDLES) 31 gauge x 1/4 [...] LITE STRIPS) test strip, alcohol swabs, Insulin [place], Disposable, (PEN NEEDLES) 31 gauge x 1/4 [...] Type 1 diabetes mellitus with diabetic polyneuropathy ([facility]) Comment: Glycemic control is above goal. [...] LITE STRIPS) test strip, alcohol swabs, Insulin [place], Disposable, (PEN NEEDLES) 31 gauge x 1/4 [...] unspecified whether stage 3a or 3b CKD ([facility]) Comment: Glycemic control is above goal. [...] LITE STRIPS) test strip, alcohol swabs, Insulin [place], Disposable, (PEN NEEDLES) 31 gauge x 1/4 [...] LITE STRIPS) test strip, alcohol swabs, Insulin [place], Disposable, (PEN NEEDLES) 31 gauge x 1/4 [...] Level: 4 - Moderate Candy Penn, MSN, ENVELOPE ADDRESSER, BODS DEVELOPER-C, CDE Endocrinology [facility] Medical Office [facility]/[address], [facility] [address] [place] [address] Fax: documented in this encounterZanesville City Hospital10-27-2023 Evaluation note* Diagnosis Type 1 diabetes mellitus with stage 3 chronic kidney disease, unspecified whether stage 3a or 3b CKD (HCC) 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, not stated as uncontrolled Hypogonadism in male Mixed hyperlipidemia Essential hypertension Unspecified essential hypertension Obesity, Class I, BMI 30-34.9 Obesity, unspecified documented in this encounter [facility]10-02-2023 Miscellaneous Notes* Telephone Encounter - Cathi [...] and advise. Cathi Campbell documented in this encounterZanesville City Hospital06-15-2023 Miscellaneous Notes* Telephone Encounter - Candy Penn APRN.CNP - 02/09/2023 12:30 PM EDT Reviewed. Mild NPDR , no mac edema bilaterally * Telephone Encounter - Nicole Cerda MA - 02/09/2023 8:39 AM EDT Received Eye Exam Report from [facility]. Placed in provider's inbox for review. Route to [place] for scanning. documented in this encounterZanesville City Hospital06-07-2023 History of Present illness Narrative* Chriss Cruz [...] placed. Patient declined to schedule. He states [employer] has similar program he uses. Due for [...] by mouth at bedtime as needed. Insulin [place], Disposable, (PEN NEEDLES) 31 gauge x 08/31 [...] to 5 tabs a day prn. omega 3-upc-sky-fish oil 300-400-1,000 mg cap Take 1 capsule [...] Follow closely. Chriss Cruz documented in this encounterZanesville City Hospital05-04-2023 History of Present illness Narrative* Chriss Cruz MD - 12/29/2022 9:36 AM EDT Patient presents with: Follow Up HPI: Patient presents today for office visit for follow up. Was admitted into [facility] 11/26-11/28 Anemia and syncope Feeling [...] set him up with lele Hernandez in [place], although he already sees Lele in the [...] Abs Lymph 1.00 - 4.00 k/uL 1.57 White% % 7.1 Abs White <0.87 k/uL 0.39 Eosin% % 1.3 Abs [...] by mouth at bedtime as needed. Insulin [place], Disposable, (PEN NEEDLES) 31 gauge x 1/4 [...] to 5 tabs a day prn. omega 2-zem-kea-fish oil 300-400-1,000 mg cap Take 1 capsule [...] EEG Trigeminal neuralgia Type 1 diabetes mellitus ([facility]) [address] Dr Zepeda. from pancreatitis. Villous [...] TABLET Chriss Cruz MD documented in this encounterZanesville City Hospital04-14-2023 Miscellaneous Notes* Telephone Encounter - Linad Baxter Ma - 12/09/2022 9:14 AM EDT Patient was made aware of the results. Patient verbalizes understanding. Linda Baxter Ma * Telephone Encounter - Chriss Cruz MD - 12/09/2022 8:00 AM EDT Labs are showing anemia is stable. Kidney functions remains down. Make sure keeps continuing to follow with nephrology. documented in this encounterZanesville City Hospital04-07-2023 Miscellaneous Notes* Telephone Encounter - Sarah [...] week along with cbc documented in this encounterZanesville City Hospital04-07-2023 Evaluation note* Diagnosis Gastrointestinal hemorrhage, unspecified gastrointestinal hemorrhage type- Primary Stage 3a chronic kidney disease (HCC) documented in this encounter [facility]04-06-[facility] History of Present illness Narrative* Chriss Cruz MD - 12/01/2022 10:31 AM EDT Patient presents with: Transition Of Care Hospital F/U: Patient reports he will be getting hemoglobin injection every Monday until otherwisedecided. HPI: Patient presents today for office visit for TCM TCM call on 11/28 Admitted to [facility] 11/26-11/28/22. DX: anemia, syncope. Was brought [...] set him up with lele Hernandez in [place], although he already sees Lele in the [...] Inject 40 Units subcutaneously twice daily.) Insulin [place], Disposable, (PEN NEEDLES) 31 gauge x 1/4 [...] (Patient not taking: Reported on 12/01/2022) omega 6-gyt-tcq-fish oil 300-400-1,000 mg cap Take 1 capsule [...] DIFF Chriss Cruz MD documented in this encounterZanesville City Hospital04-03-2023 History of Present illness Narrative* Lady Cruz - 11/28/2022 9:55 AM EDT TRANSITION CARE MANAGEMENT (TCM) INITIAL CONTACT Roll Slicing Machine Tender Outreach Provider Action/FYI: Initial contact with patient post discharge, spoke to patient. Patient identified by name and . TRANSITION CARE MANAGEMENT INITIAL OUTREACH DOCUMENTATION: Date of Outreach: 11/28/2022 Date of Discharge 11/26/2022 Some recent data might be hidden SUMMARY: -Pt discharged from [facility] on 11/26/22. -Admitted for: Syncope [...] for provider to review documented in this encounterZanesville City Hospital04-01-[address] Renae [facility] November 26, 2022 1:45pm Note Date/Time November 26, 2022 1:45 pm [facility] Medical Records Department [address] [place] [address] Instructions for Home/Discharge Instructions 11/26/22 1344 MR#: [id number] Acct: [id number] Name: REGINALDO HUFFMAN Rep #:[id number] : [...] to schedule your hospital follow-up appointment (ph. [phone]) -It is advised that you follow-up with [...] to further review results once available. The [place] patient portal will also have your lab results as they become available, would recommend signing up for this and utilizing this as it will be helpful at follow-up appointments if you are primary care physician does not have access to the [facility] medical record. -Would recommend stopping your [...] to schedule your hospital follow-up appointment (ph. [phone])) Chandana Griffin MD [Med Staff - Courtesy [...] CC: Dr. Chriss Cruz MD ~ Signed [facility] Work Phone: 1(209) 490-386104-01-[address] Renae [facility] November 26, 2022 4:09pm Note Date/Time November 26, 2022 1:45 pm [facility] Medical Records Department [address] [place] [address] Discharge Summary 11/26/22 1345 MR#: [id number] Acct: [id number] Name: REGINALDO HUFFMAN Rep #:[id number] : 1970 52 From: Maria Antonia Renae MD PCP: Dr. Chriss Cruz MD Status:ADM I N Location: [address] 1 Providers Date of Admission: 11/23/22 [...] radiation in 2013, hypertension who presented to [facility] 11/23/2022 after syncopal episode after he [...] to schedule your hospital follow-up appointment (ph. [phone]) -It is advised that you follow-up with [...] to further review results once available.? The [place] patient portal will also have your lab results as they become available, would recommend signing up for this and utilizing this as it will be helpful at follow-up appointments if you are primary care physician does not have access to the [facility] medical record. -Would recommend stopping your [...] % (Auto) 60.6, Lymph % (Auto) 30.7, White % (Auto) 6.0, Eos % (Auto) 1.5, [...] to schedule your hospital follow-up appointment (ph. [phone]) -It is advised that you follow-up with [...] to further review results once available. The [place] patient portal will also have your lab results as they become available, would recommend signing up for this and utilizing this as it will be helpful at follow-up appointments if you are primary care physician does not have access to the [facility] medical record. -Would recommend stopping your [...] to schedule your hospital follow-up appointment (ph. [phone])) Chandana Griffin MD [Med Staff - Courtesy Staff] - See Referral Note (Please call to establish care with endocrinology upon discharge for further work-up) Chriss Cruz MD [Primary Care Provider] - Within 1 Week Disposition Disposition (needs filled in before D/C Order can be placed): Home, Self Care Charges/Coding Visit Charges Inpatient E&M: 95952 Disch Hosp >30min 11/26/22 1609 <Electronically signed by Maria Antonia Renae MD> Cosigner Signature (if applicable): CC: Dr. Maria Antonia Renae MD; Dr. Chriss Cruz MD~ Signed [facility] Work Phone: 1(450) 326-570704-01-2023 Progress note Author Aquiles Warren [facility] November 26, 2022 11:41am Note Date/Time November 26, 2022 11:3 8am [facility] Medical Records Department [address] [place] [address] Progress Note 11/26/22 1137 MR#: [id number] Acct: [id number] Name: REGINALDO HUFFMAN Rep #:[id number] : 1970 52 From: Aquiles Warren DO PCP: Dr. Chriss Cruz MD Status:ADM I N Location: [place] [address] Subjective Subjective Patient does not have any [...] % (Auto) 60.6, Lymph % (Auto) 30.7, White % (Auto) 6.0, Eos % (Auto) 1.5, [...] an outpatient. Charges/Coding Visit Charges Inpatient E&M: 16787 Subs Hosp L3 11/26/22 1141 <Electronically signed by Aquiles Friend DO> Aquiles Friend DO Cosigner Signature (if applicable): CC: ~ Signed [facility] Work Phone: 1(725) 981-948303-31-[address] Renae [facility] November 25, 2022 9:00am Note Date/Time November 25, 2022 8:5 5am [facility] Medical Records Department [address] [place] [address] Progress Note - Hospitalist 11/25/22 0844 MR#: [id number] Acct: [id number] Name: REGINALDO HUFFMAN Rep #:[id number] : 1970 52 From: Maria Antonia Renae MD PCP: Dr. Chriss Cruz MD Status:ADM I N Location: [place] [address] Reason for Visit Reason for Visit: Diagnoses [...] % (Auto) 66.0, Lymph % (Auto) 26.4, White % (Auto) 3.9, Eos % (Auto) 1.7, [...] documentation, 30minutes Charges/Coding Visit Charges Inpatient E&M: 01950 Subs Hosp L2 11/25/22 0900 <Electronically signed by Maria Antonia Renae MD> Cosigner Signature (if applicable): CC: ~ Signed [facility] Work Phone: 1(871) 512-824403-30-2023 Consult note Author Aquiles Warren [facility] November 24, 2022 6:01pm Note Date/Time November 24, 2022 5:5 6pm [facility] Medical Records Department [address] [place] [address] Consultation - GI 11/23/22 2300 MR#: [id number] Acct: [id number] Name: REGINALDO HUFFMAN Rep #:[id number] : 1970 52 From: Aquiles Warren DO PCP: Dr. Chriss Cruz MD Status:ADM I N Location: [place] [address] HPI Consult Data Date of Consult: 11/23/22 [...] on April 21, 2016 which subsequently resolved.? [facility] Medical History Alcohol abuse Anemia Asthma Cancer [...] % (Auto) 59.0, Lymph % (Auto) 30.8, White % (Auto) 6.4, Eos % (Auto) 1.0, [...] of 3. Charges/Coding Visit Charges Inpatient E&M: 09011 Init Hosp L3 11/24/22 1801 <Electronically signed by Aquiles Friend DO> Cosigner Signature (if applicable): CC: Dr. Chriss Cruz MD~ Signed [facility] Work Phone: 1(268) 157-656403-30-2023 History and physical note Author Dr. Renae [facility] November 24, 2022 12:35pm Note Date/Time November 23, 2022 1:1 4pm [facility] Medical Records Department [address] [place] [address] H&P Exam - Hospitalist 11/23/22 1307 MR#: [id number] Acct: [id number] Name: REGINALDO HUFFMAN Rep #:[id number] : 1970 52 From: Maria Antonia Renae MD PCP: Dr. Chriss Cruz MD Status:ADM I N Location: [place] [address] HPI - General General Date of Admission: 11/23/22 Date of Service: 11/23/22 HPI Narrative REGINALDO HUFFMAN, is a 52 M with history of trigeminal neuralgia, depression, vertigo, type 2 diabetes mellitus, colon cancer status post resection chemo radiation in 2013, hypertension who presented to [facility] 11/23/2022 after syncopal episode. In the ED he was found to have a hemoglobin of 6.3 and hospitalist consulted for admission. He reportedly has a history of anemia and recently started to shots to help his hemoglobin a week ago through Dr. Ibarra's office though he is not sure which injection this was but said it wasat the suggestion of his machine ii cutter. He had been in his usual health [...] had any GI upset before or after. [facility] Medical History Alcohol abuse Anemia Asthma Cancer [...] % (Auto) 65.2, Lymph % (Auto) 25.6, White % (Auto) 6.0, Eos % (Auto) 1.5, [...] positive will consult GI -Follows with Dr. bIarra as an outpatient and was recently started [...] documentation, 60minutes Charges/Coding Visit Charges Inpatient E&M: 95202 Init Hosp L2 11/23/22 1314 <Electronically signed [...] MD; Dr. Chriss Cruz MD ~* Signed [facility] Work Phone: 1(827) 142-747703-30-2023 Procedure [facility] 11-24-2022 Procedure [facility]03-30-[address] Renae [facility] November 24, 2022 10:14am Note Date/Time November 24, 2022 10: 14am [facility] Medical Records Department [address] [place] [address] Telemedicine Confirmation Receipt 11/24/22 MR#: [id number] Acct: [id number] Name: REGINALDO HUFFMAN Rep #:[id number] : 1970 52 From: Maria Antonia Renae MD PCP: Dr. Chriss Cruz MD Status:ADM I N [facility] Telemed has confirmed receipt of a request for visit. This document confirms receipt of the order initiating the consult. To find the results of the consultation, please view the patient's reports for the scanned Telemed Consult. [facility] Work Phone: 1(491) 216-752303-30-[address] Renae [facility] November 24, 2022 9:31am Note Date/Time November 24, 2022 9:3 1am [facility] Medical Records Department [address] [place] [address] Progress Note - Hospitalist 11/24/22928 MR#: [id number] Acct: [id number] Name: REGINALDO HUFFMAN Rep #:[id number] : 1970 52 From: Maria Antonia Renae MD PCP: Dr. Chriss Cruz MD Status:ADM I N Location: [place] [address] Reason for Visit Reason for Visit: Diagnoses [...] % (Auto) 65.2, Lymph % (Auto) 25.6, White % (Auto) 6.0, Eos % (Auto) 1.5, [...] % (Auto) 59.0, Lymph % (Auto) 30.8, White % (Auto) 6.4, Eos % (Auto) 1.0, [...] documentation, 30minutes Charges/Coding Visit Charges Inpatient E&M: 78746 Subs Hosp L2 11/24/22 0931 <Electronically signed by Maria Antonia Renae MD> Cosigner Signature (if applicable): CC: ~ Signed [facility] Work Phone: 1(116) 155-687403-29-[address] Hogan [facility] November 23, 2022 12:55pm Note Date/Time November 23, 2022 11: 37am [facility] Medical Records Department [address] [place] [address] Emergency Department Summary 11/23/22 MR#: [id number] Acct: [id number] Name: REGINALDO HUFFMAN Rep #:[id number] : 1970 52 From: Galdino Hogan MD PCP: Dr. Chriss Cruz MD Status:ADM I NO Location: [place] [address] HPI History of Present Illness Chief Complaint: [...] all 4 extremities. 5 out of 5 telephone repairer strength. Dorsi plantarflexion intact. Normal range of [...] % (Auto) 65.2 Lymph % (Auto) 25.6 White % (Auto) 6.0 Eos % (Auto) 1.5 [...] rate of 72 no acute signs of FL or ischemia. No change from prior EKG from October of last year. Prior EKG tracings: available for review Prior: Unchanged Discharge Plan Dx/Rx/DC Orders Clinical Impression: Syncope, Anemia, History of diabetes mellitus Disposition Disposition: Acute Care Hospital [facility] What to do if you have Problems For any increased pain, shortness of breath, bleeding, nausea or vomiting, chestpain, or any unexpected problems, contact your Primary Care Provider. Call [facility] ([phone]) or report to the closest Emergency Room. Call 911 if necessary. 11/23/22 1255 <Electronically signed by Galdino Hogan MD> Cosigner Signature (if applicable): CC: Dr. Chriss Cruz MD ~ Signed [facility] Work Phone: 1(319) 256-165502-09-2023 History of Present illness Narrative* Chriss Cruz [...] 1 tablet by mouth once daily. omega 6-ogp-ifm-fish oil 300-400-1,000 mg cap Take 1 capsule [...] (Patient not taking: Reported on 10/06/2022) Insulin [place], Disposable, (PEN NEEDLES) 31 gauge x 1/4 [...] 10+ YR Chriss Cruz documented in this encounterZanesville City Hospital01-24-2023 Instructions* Patient Instructions* Candy Penn APRN.CNP - [...] up with Dr. Cruz. Candy Penn, MSN, ENVELOPE ADDRESSER, BODS DEVELOPER-C, CDE Endocrinology [facility] Medical Office [facility]/[address], [address] [place] [address] Fax: documented in this encounterZanesville City Hospital01-24-2023 History of Present illness Narrative* Candy Penn [...] change medication. He is seeing nephrology in [place] ([facility] Under the care of hem/onc for colon [...] 140 units daily 135 mL 3 Insulin [place], Disposable, (PEN NEEDLES) 31 gauge x 1/4 [...] a day prn. 30 tablet 5 omega 6-ptp-jem-fish oil 300-400-1,000 mg cap Take 1 capsule [...] minutes based on response and tolerability. 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 from pancreatitis. Villous [...] SS up to 140 units daily Insulin [place], Disposable, (PEN NEEDLES) 31 gauge x 1/4 [...] to 5 tabs a day prn. omega 2-igc-txu-fish oil 300-400-1,000 mg cap Take 1 capsule [...] plan. Ruma Ortiz APRN.CNP documented in this encounterZanesville City Hospital11-11-2022 Miscellaneous Notes* Telephone Encounter - Shadia [...] advise. Shadia Renae Pss documented in this encounterZanesville City Hospital10-21-2022 History of Present illness Narrative* Candy Penn [...] stating he has to travel far from [place] to do so. History in addition to [...] minutes based on response and tolerability. 2 [place] 1 Blood-Glucose Meter (FREESTYLE LITE METER) monitoring kit 1 Each as needed. 1 Each 0 sildenafil (REVATIO) 20 mg tablet 2 to 5 tabs a day prn. 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 No enough data to make changes today. Plan: HEMOGLOBIN A1C (POC), insulin glargine (LANTUS SOLOSTAR U-100 INSULIN) 100 unit/mL (3 mL), insulin lispro (ADMELOG SOLOSTAR U-100 INSULIN) 100 unit/mL, Insulin [place], Disposable, (PEN NEEDLES) 31 gauge x 1/4 ndle, alcohol swabs, blood sugar diagnostic (FREESTYLE LITE STRIPS) test strip Continue current insulin doses. Check BG 4x per day. Mail me readings in 1-2 wk. Follow up with me in 3 months or BODS DEVELOPER [place] (in [place]) (E29.1) Hypogonadism in male Comment/Plan: off supplement [...] which included preparing to see the patient, [id number] patient care, completing clinical documentation, obtaining and/or reviewing separately obtained history, performing a medically appropriate examination, counseling and educating the pat ient/family/caregiver, ordering medications, tests, or procedures, and communicating results to thepatient/family/caregiver. Candy Penn, MSN, ENVELOPE ADDRESSER, BODS DEVELOPER-C, CDE Endocrinology [facility] Medical Office [facility]/[address] [place], [place] [address] Fax: documented in this encounterZanesville City Hospital10-07-2022 Miscellaneous Notes* Telephone Encounter - So Ferrer Pss - 06/03/2022 1:48 PM EDT Pharmacy verified in [facility] Patient has been identified by [...] advise. So Ferrer Pss documented in this encounterZanesville City Hospital10-06-2022 Miscellaneous Notes* Telephone Encounter - Ilene [...] PCP. Alia Villegas LPN documented in this encounterZanesville City Hospital10-06-2022 History of Present illness Narrative* Alia [...] PCP. Alia Villegas LPN documented in this encounterZanesville City Hospital09-07-2022 Miscellaneous Notes* Telephone Encounter - Germaine Huffman [...] PCP. Alia Villegas LPN documented in this encounterZanesville City Hospital09-07-2022 History of Present illness Narrative* Alia [...] PCP. Alia Villegas LPN documented in this encounterZanesville City Hospital08-12-2022 Miscellaneous Notes* Telephone Encounter - Tabatha [...] patient. Tabatha Bernal Pss documented in this encounterZanesville City Hospital08-03-2022 History of Present illness Narrative* Chriss Cruz [...] See Lindsay's last note: He went to [place] [facility] on 02/04. 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 Mathews like was going to pass out. Did [...] to the car, had dizziness. Proceeded to [place] ER. He had reproducible vertiginous symptoms and [...] to 5 tabs a day prn. omega 8-ath-xci-fish oil 300-400-1,000 mg cap Take 1 capsule by mouth once daily. Multivitamin capsule Take 1 capsule by mouth once daily. 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 from pancreatitis. Villous [...] Chriss Cruz MD bp check in one [facility] RTO in I six months documented in this encounterZanesville City Hospital06-27-2022 Miscellaneous Notes* Telephone Encounter - Sujey Albarran LPN - 02/21/2022 1:35 PM EDT See telephone note from 02/10. * Telephone Encounter - Roberto Anderson - 02/09/2022 5:04 PM EDT I attempted to contact patient to discuss xray results. No answer. Left message for patient to contact me to discuss Roberto Anderson DPM documented in this encounterZanesville City Hospital06-16-2022 Miscellaneous Notes* Telephone Encounter - Roberto [...] week Roberto Anderson DPM documented in this encounterZanesville City Hospital06-15-2022 Instructions* Patient Instructions* Roberto Anderson - 02/09/2022 1:29 PM EDT Continue with betadine between left 4th and 5th toe Apply lambs wool to prevent rubbing Repeat xrays today. Wear surgcial shoe Apply betadine between right 4th and 5th toe Consider using toe spacer on right documented in this encounterZanesville City Hospital06-15-2022 History of Present illness Narrative* Roberto [...] (A) 4.2 - 5.6 % Final Comment: Location:[facility] [place], [address] Point of care (POC) Hemoglobin A1c (HGBA1C) [...] specific diabetes management situations: The POC device insecticide sprayer provides a normal range of 4.2% to 6.5% for the HGBA1C POC test. However, the [employer] guidelines indicate that patients with [...] Diagnosis Date Acute GI bleeding 08/18/2015 Alcoholism ([facility]) 2004 Anemia Saw hematology and gi, probable chromic disease Asthma Chronic pancreatitis ([facility]) 2004 Colon cancer ([facility]) Dandy-Walker syndrome variant (HCC) Esophageal reflux Hypertension Hypogonadism in male Major depressive disorder, recurrent episode, unspecified [facility] Microalbuminuria on anna Mixed hyperlipidemia Seizure disorder ([facility]) Negative EEG Trigeminal neuralgia Type 1 diabetes mellitus ([facility]) 2002 Dr Zepeda. from pancreatitis. Villous [...] four times a day, IDDM, E11.65 Insulin [place], Disposable, (PEN NEEDLES) 31 gauge x 1/4 [...] (Patient not taking: Reported on 02/04/2022) omega 9-rgi-pgf-fish oil 300-400-1,000 mg cap Take 1 capsule [...] was at last visit. documented in this encounterZanesville City Hospital06-10-2022 Miscellaneous Notes* Telephone Encounter - Candy Penn [...] increase in symptoms. Transportneeded to take to [place] [facility]. Paramedics arrived at 1153. Assessment and hand off report. Patient deemed stable and [facility] nurses, and provider at bedside to assist. Time: 1147 BP: 137/79 P: 52 O2 98% RA Patient reports that he took 1 Vicodin at 0800 for Toe Pain, but has taken this in the past with noissues. 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 Problem list updated. Thank you * Telephone Encounter - Didi Garcia LPN - 02/04/2022 9:03 AM EDT [facility] HM Updated. documented in this encounterZanesville City Hospital06-06-2022 History of Present illness Narrative* Lisette [...] his toe 3 weeks ago. Seen in [place] ER on 01/26 with xrays showing L [...] DO January 31, 2022 documented in this encounterZanesville City Hospital06-06-2022 Miscellaneous Notes* Telephone Encounter - Roberto [...] ED Roberto Anderson DPM documented in this encounterZanesville City Hospital06-03-2022 Instructions* Patient Instructions* Roberto Anderson - [...] (or decreased sensation in your feet) a bag washer should always cut your toenails. Be Careful [...] Go to your health care provider or bag washer to treat these conditions. documented in this encounterZanesville City Hospital06-03-2022 History of Present illness Narrative* RT [...] 28, 2022 2:45 PM documented in this encounterZanesville City [facility] History of Present illness Narrative* Roberto Anderson - 01/28/2022 1:42 PM EDT Subjective: Patient presents to clinic c/o painful toenails. They state that the nails are especially painful with shoe gear and pressure. Patient states that nails 1-5 b/l are painful. Patient reports that he recently noticed pain and swelling in left 4th toe. He presented to the [place] emergency room and had xrays taken. xrays [...] measure: Medication Comments: Hydrocodone/elevation [facility] Miscellaneous Notes* Telephone Encounter - [place] [...] notify patient. [place] Briceno documented in this encounterZanesville [facility]04-29-2022 Miscellaneous Notes* Telephone Encounter - Leo Harris [...] of his refill request. documented in this encounterZanesville [facility] Hospital04-29-2022 Miscellaneous Notes* Telephone Encounter - Sarah Howard LPN - 12/24/2021 12:06 PM EDT Notified patient of lab results. * Telephone Encounter - Sarah Howard LPN - 12/23/2021 1:15 PM EDT CEA not available in [facility] system. Dr Trevin aware. Results faxed to Dr Ibarra. Await final result before calling patient. * Telephone Encounter - Chriss Cruz MD - 12/23/2021 8:45 AM EDT Anemia is stable potassium is ok. . CEA looks ok but I need to see what his last one was. Can we pull he ceas from [facility] computer for me to see documented in this encounterZanesville City Hospital04-19-2022 Miscellaneous Notes* Telephone Encounter - Linda [...] would be contacted after review by Dr director of content marketing. Alia Villegas LPN documented in this encounterZanesville City Hospital04-19-2022 History of Present illness Narrative* Alia [...] would be contacted after review by Dr director of content marketing. Alia Villegas LPN documented in this encounterZanesville [facility]04-07-2022 Miscellaneous Notes* Telephone Encounter - Kassie [...] daily IF CrCl <30 Kassie Melchor PharmD, [facility] Primary Care Clinical Pharmacist Mary Harrison [facility] * Telephone Encounter - Linda Baxter Ma [...] Thanks, Donte Amos PA-C documented in this encounterZanesville City Hospital04-05-2022 Miscellaneous Notes* Telephone Encounter - Linda Baxter [...] and states that patient was seen in [facility] ER on Monday. Mother reports that patient does not have DVT, but ED told her that the cause of the swelling was that amlodipine dosageis too high. Mother all asking for guidance in regards to this. Please review and advise, Nannette Huerta RN documented in this encounterZanesville City Hospital04-02-2022 History of Present illness Narrative* Chriss Cruz [...] Abs Lymph 1.00 - 4.00 k/uL 1.62 White% % 7.1 Abs White <0.87 k/uL 0.31 Eosin% % 1.8 Abs [...] to 5 tabs a day prn. omega 2-fpp-qvy-fish oil 300-400-1,000 mg cap Take 1 capsule by mouth once daily. Multivitamin capsule Take 1 capsule by mouth once daily. alcohol swabs padm Use 8 swabs daily TO CHECK BLOOD SUGAR AND FOR INSULIN INJECTIONS blood sugar diagnostic (FREESTYLE LITE STRIPS) test strip TEST four times a day, IDDM, E11.65 Insulin [place], Disposable, (PEN NEEDLES) 31 gauge x 1/4 [...] the ER. He agreeable to go to [facility]. Will communicate via ER Passport [...] prn Medical Decision Making documented in this encounterZanesville City Hospital04-02-2022 Miscellaneous Notes* Telephone Encounter - Linda [...] labs to his oncologist. documented in this encounterZanesville City Hospital03-30-2022 History of Present illness Narrative* Chriss Cruz [...] to 5 tabs a day prn. omega 8-ljp-cpa-fish oil 300-400-1,000 mg cap Take 1 capsule by mouth once daily. Multivitamin capsule Take 1 capsule by mouth once daily. alcohol swabs padm Use 8 swabs daily TO CHECK BLOOD SUGAR AND FOR INSULIN INJECTIONS blood sugar diagnostic (FREESTYLE LITE STRIPS) test strip TEST four times a day, IDDM, E11.65 Insulin [place], Disposable, (PEN NEEDLES) 31 gauge x 1/4 [...] diet. Chriss Cruz documented in this encounterCleveland [id number] Miscellaneous Notes* Telephone Encounter - Chriss Cruz [...] to notify pcp he did go to [facility] ED yest 11/21/21. Pt states he received potassium IV then was sent home. Pt was instructed to FU with pcp in 3-5 days. Pt scheduled 11/24/21 for ED FU. Didi Setele LPN documented in this encounterZanesville City Hospital03-25-2022 Miscellaneous Notes* Telephone Encounter - Chriss Cruz [...] will not go, at least in [facility]. He is fully aware of my recommendations [...] to bring it down documented in this encounterZanesville City Hospital03-25-2022 Miscellaneous Notes* Telephone Encounter - Gini [...] PCP. Alia Villegas LPN documented in this encounterZanesville City Hospital03-25-2022 History of Present illness Narrative* Alia [...] PCP. Alia Villegas LPN documented in this encounterZanesville City Hospital06-04-2021 NoteHNO ID: [id number] Author: Ernesto Mayo APRN.TABLE GAMES FLOOR SUPERVISOR Service: ? Author Type: Nurse Practitioner Type: [...] male from [place] who presents to the [facility] outpatient neurology department with a [...] 1 ML INJECTIONS EVERY 2 WEEKS omega 4-oqt-erx-fish oil 300-400-1,000 mg cap Take 1 capsule by mouth once daily. Multivitamin capsule Take 1 capsule by mouth once daily. alcohol swabs padm Use 8 swabs daily TO CHECK BLOOD SUGAR AND FOR INSULIN INJECTIONS blood sugar diagnostic (FREESTYLE LITE STRIPS) test strip TEST four times a day, IDDM, E11.65 Insulin [place], Disposable, (PEN NEEDLES) 31 gauge x 1/4 [...] Major depressive disorder, rec (more content not included)...[facility]04-[facility] NoteHNO ID: [id number] Author: Liyah Still Service: ? Author Type: Physician Type: Progress Notes Filed: 12/10/2020 10:29 PM Note Text: [facility] EPILEPSY CLINIC NOTE - RETURN VISIT [...] was not using pillbox. Always goes to [place] ED for seizures; given Dilaudid and something [...] were normal. MRI brain was normal at [facility] in 2019. Current AED: CBZ 600 [...] to the house. 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 EXAM Alert, [...] BID] Takes CBZ 10A (more content not included)...[facility] 06-[facility] History of Past illness [...] of this encounter (statuses as of 11/19/2021) [facility] illness Narrative* Problem [...] of this encounter (statuses as of 11/19/2021) [facility] Narrative* Problem [...] of this encounter (statuses as of 11/22/2021) [facility] Narrative* Problem [...] of this encounter (statuses as of 11/24/2021) [facility] Narrative* Problem [...] of this encounter (statuses as of 11/27/2021) [facility] Narrative* Problem [...] of this encounter (statuses as of 11/27/2021) [facility] Narrative* Problem [...] of this encounter (statuses as of 11/30/2021) [facility] Narrative* Problem [...] of this encounter (statuses as of 12/01/2021) [facility] Narrative* Problem [...] of this encounter (statuses as of 12/03/2021) [facility] Narrative* Problem [...] of this encounter (statuses as of 12/14/2021) [facility] Narrative* Problem [...] of this encounter (statuses as of 12/15/2021) [facility] Narrative* Problem [...] of this encounter (statuses as of 12/24/2021) [facility] Narrative* Problem [...] of this encounter (statuses as of 12/24/2021) [facility] Narrative* Problem [...] of this encounter (statuses as of 01/06/2022) [facility] Narrative* Problem [...] of this encounter (statuses as of 01/29/2022) [facility] Narrative* Problem [...] of this encounter (statuses as of 01/29/2022) [facility] Narrative* Problem [...] of this encounter (statuses as of 01/31/2022) [facility] N[facility]ative* Problem [...] of this encounter (statuses as of 02/04/2022) [facility] N[facility]* Problem [...] of this encounter (statuses as of 02/07/2022) [facility] N[facility]ative* Problem [...] of this encounter (statuses as of 02/09/2022) [facility] N[facility]* Problem [...] of this encounter (statuses as of 02/10/2022) [facility]* Problem [...] of this encounter (statuses as of 02/21/2022) [facility] N[facility]ative* Problem [...] of this encounter (statuses as of 03/30/2022) [facility] Narrative* Problem [...] of this encounter (statuses as of 04/11/2022) [facility] N[facility]ative* Problem [...] of this encounter (statuses as of 05/04/2022) [facility] N[facility]ative* Problem [...] of this encounter (statuses as of 05/04/2022) [facility] N[facility]ative* Problem [...] of this encounter (statuses as of 06/02/2022) [facility] N[facility]ative* Problem [...] of this encounter (statuses as of 06/02/2022) [facility]* Problem [...] of this encounter (statuses as of 06/03/2022) [facility] N[facility]* Problem [...] of this encounter (statuses as of 06/17/2022) [facility]* Problem [...] of this encounter (statuses as of 07/08/2022) [facility]* Problem [...] of this encounter (statuses as of 08/27/2022) [facility]* Problem [...] of this encounter (statuses as of 09/21/2022) [facility]* Problem [...] of this encounter (statuses as of 10/06/2022) [facility]* Problem [...] of this encounter (statuses as of 11/28/2022) [facility]* Problem [...] of this encounter (statuses as of 12/01/2022) [facility]* Problem [...] of this encounter (statuses as of 12/02/2022) [facility]* Problem [...] of this encounter (statuses as of 12/09/2022) [facility] N[facility]* Problem [...] of this encounter (statuses as of 12/29/2022) [facility]* Problem [...] of this encounter (statuses as of 02/01/2023) [facility]* Problem [...] of this encounter (statuses as of 02/09/2023) [facility] N[facility]ative* Problem [...] of this encounter (statuses as of 05/30/2023) [facility] N[facility]ative* Problem [...] of this encounter (statuses as of 06/23/2023) [facility] Dr. Hogan [facility] November 23, 2022 12:55pm Note Date/Time November 23, 2022 11: 37am [facility] Medical Records Department [address] [place] [id number] Emergency Department Summary 11/23/22 MR#: [id number] Acct: [id number] Name: REGINALDO HUFFMAN Rep #:[id number] : 1970 52 From: Galdino Hogan MD PCP: Dr. Chriss Cruz MD Status:ADM I NO Location: [address] History of Present Illness Chief Complaint: [...] Prior similar symptoms: Yes Recent [facility] Medical History Alcohol abuse Anemia Asthma Cancer [...] all 4 extremities. 5 out of 5 telephone repairer strength. Dorsi plantarflexion intact. Normal range of [...] % (Auto) 65.2 Lymph % (Auto) 25.6 White % (Auto) 6.0 Eos % (Auto) 1.5 [...] rate of 72 no acute signs of FL or ischemia. No change from prior EKG from October of last year. Prior EKG tracings: available for review Prior: Unchanged Discharge Plan Dx/Rx/DC Orders Clinical Impression: Syncope, Anemia, History of diabetes mellitus Disposition Disposition: Acute Care Hospital [facility] What to do if you have Problems For any increased pain, shortness of breath, bleeding, nausea or vomiting, chestpain, or any unexpected problems, contact your Primary Care Provider. Call [facility] ([phone]) or report to the closest Emergency Room. Call 911 if necessary. 11/23/22 1255 <Electronically signed by Galdino Hogan MD> Cosigner Signature (if applicable): CC: Dr. Chriss Cruz MD ~ Signed [facility] Work Phone: Discharge summary Author Alfredo Ag [facility] December 09, 2023 11:07am Note Date/Time December 09, 2023 10: 59am [facility] Medical Records Department [address] [place] [id number] Instructions for Home/Discharge Instructions 12/09/23 1058 MR#: [id number] Acct: [id number] Name: REGINALDO HUFFMAN Rep #:[id number] : [...] Rm MD; Luciana Garcia DO ~ Signed [facility] Work Phone: Discharge summary Author Alfredo Ag [facility] December 09, 2023 11:12am Note Date/Time December 09, 2023 11: 12am [facility] Medical Records Department [address] [place] [address] Discharge Summary 12/09/23 1107 MR#: [id number] Acct: [id number] Name: REGINALDO HUFFMAN Rep #:[id number] : 1970 53 From: Alfredo Ag DO PCP: Luciana Garcia DO Status:ADM I N Location: [place] [address] Providers Date of Admission: 12/07/23 Date of [...] was seen in the emergency room at [facility] due to abnormal labs which showed [...] Clarity Clear, Urine pH 6.0, Ur Specific [place] 1.015, Urine Protein 500 H, Urine Glucose [...] Self Care Charges/Coding Visit Charges Inpatient E&M: 24380 Disch Hosp >30min 12/09/23 1112 <Electronically signed by Alfredo Ag DO> Cosigner Signature (if applicable): CC: Dr. Alfredo Ag DO; Luciana Garcia DO~ Signed [facility] Work Phone: Evaluation note* Diagnosis Essential hypertension- Primary Unspecified essential hypertension [facility]* Diagnosis Hyperkalemia- Primary Hyperpotassemia Primary [...] Unspecified essential hypertension [facility]* Diagnosis Anemia, unspecified type- Primary Renal insufficiency Unspecified disorder of kidney and ureter [facility]* Diagnosis Edema of left lower leg- [...] Unspecified essential hypertension [facility]* Diagnosis Essential hypertension Unspecified essential hypertension [facility] Diagnosis Acute renal disease- Primary Unspecified disorder of kidney and ureter [facility]* Diagnosis Moderate episode of recurrent major depressive disorder (HCC) [facility]* Diagnosis Onset Date Resolution Status 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 [facility] Work Phone: Evaluation note* Diagnosis Type 1 [...] foot, initial encounter documented [facility]* Diagnosis Osteomyelitis of toe (HCC) Unspecified osteomyelitis, ankle and foot documented [facility] this [facility]* Diagnosis 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, limited to breakdown of skin (HCC)- Primary [facility]* Diagnosis Skin ulcer, limited to breakdown of skin (HCC)- Primary [facility]* Diagnosis 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, with long-term current use of insulin (HCC) [facility]* Diagnosis OPENED IN ERROR- Primary To allow closing an encounter opened in error (used in SmartSet) [facility]* Diagnosis 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, limited to breakdown of skin (HCC)- Primary Closed nondisplaced fracture of proximal phalanx of lesser toe of left foot with routine healing, subsequent encounter [facility]* Diagnosis Onset Date Resolution Status History of colon cancer [facility] Essential tremor acute Hyponatremia acute Polyneuropathy acute Trigeminal neuralgia chronic [facility] Work Phone: Evaluation note* Diagnosis Essential [...] Anemia, unspecified type [facility]* Diagnosis Essential hypertension- Primary Unspecified essential hypertension [facility]* Diagnosis Essential hypertension Unspecified essential hypertension Primary hypertension Unspecified essential hypertension [facility]* Diagnosis Onset Date Resolution Status Essential tremor acute Hyponatremia acute Polyneuropathy acute Trigeminal neuralgia chronic 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 bryan Anemia chronic 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 bryan [facility] Work Phone: Evaluation note* Diagnosis Essential hypertension- Primary Unspecified essential hypertension [facility] Diagnosis Hypertension due to endocrine disorder Moderate episode of recurrent major depressive disorder (HCC) Recurrent seizures (HCC) Other forms of epilepsy and recurrent seizures without mention of intractable epilepsy [facility] Diagnosis Type 1 diabetes mellitus with [...] unspecified obesity type [facility]* Diagnosis URI, acute- Primary Acute upper respiratory infections of unspecified site [facility]* Diagnosis Type 1 diabetes mellitus with [...] neoplasm of prostate documented in this encounter [facility] note* Diagnosis Seizure disorder (HCC)- Primary Unspecified [...] unspecified single disease documented in this encounter [facility] note* Diagnosis Onset Date Resolution Status 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 bryan Essential tremor chronic Polyneuropathy chronic Trigeminal neuralgia chronic Anemia chronic 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 bryan [facility] Work Phone: Evaluation note* Diagnosis Onset Date Resolution Status Essential tremor chronic Polyneuropathy chronic Trigeminal neuralgia chronic Anemia chronic 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 bryan 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 bryan Anemia acute History of diabetes mellitus acute Syncope acute [facility] Work Phone: Evaluation note* Diagnosis Onset Date Resolution Status Essential tremor chronic Polyneuropathy chronic Trigeminal neuralgia chronic Anemia chronic 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 bryan 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 bryan Anemia acute History of diabetes mellitus acute Syncope acute Varices of esophagus determined by endoscopy [facility] Work Phone: Evaluation note* Diagnosis Gastrointestinal [...] blood loss (chronic) documented in this encounter [facility] note* Diagnosis Gastrointestinal hemorrhage, unspecified gastrointestinal hemorrhage type- Primary Hypertension due to endocrine disorder Mixed hyperlipidemia Seizure disorder (HCC) Unspecified epilepsy without mention of intractable epilepsy Stage 3a chronic kidney disease (HCC) documented [facility]* Diagnosis Polyneuropathy- Primary Unspecified hereditary and idiopathic peripheral neuropathy Moderate episode of recurrent major depressive disorder (HCC) Stage 3a chronic kidney disease (HCC) Essential hypertension Unspecified essential hypertension [facility]* Diagnosis Onset Date Resolution Status Anemia chronic 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 bryan Subepithelial esophageal lesion acute 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 Anemia chronic 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 bryan CKD (chronic kidney disease) chronic Diabetes 1.5, managed as type 1 chronic Neuropathy chronic Obesity chronic Anemia in chronic kidney disease chronic 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 bryan Hypertension chronic Anemia in chronic kidney disease chronic 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 Anemia in chronic kidney disease chronic 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 bryan Hypertension chronic 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 [facility] Work Phone: Evaluation note* Diagnosis Stage 3a chronic kidney disease (HCC) documented [facility] this encounter [facility]* Diagnosis Onset Date Resolution Status Anemia in chronic kidney disease chronic 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 bryan Hypertension chronic CKD (chronic kidney disease) chronic Diabetes 1.5, managed as type 1 chronic Hypertension chronic Microalbuminuria chronic Obesity chronic Anemia in chronic kidney disease chronic 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 bryan Anemia in chronic kidney disease chronic 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 bryan Hypertension chronic Anemia in chronic kidney disease chronic 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 bryan Hypertension chronic 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 bryan Essential tremor chronic Trigeminal neuralgia chronic Anemia in chronic kidney disease chronic 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 bryan Loose stools chronic Subepithelial esophageal lesion [facility] Work Phone: Evaluation note* Diagnosis Onset Date Resolution Status Essential tremor chronic Trigeminal neuralgia chronic Anemia in chronic kidney disease chronic 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 bryan Loose stools chronic Subepithelial esophageal lesion [facility] Work Phone: Evaluation note* Diagnosis Onset Date Resolution Status Anemia in chronic kidney disease chronic 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 bryan Hypertension chronic CKD (chronic kidney disease) chronic Diabetes 1.5, managed as type 1 chronic Hypertension chronic Microalbuminuria chronic Obesity chronic Polyneuropathy chronic Acute kidney injury acute Anemia in chronic illness [facility] Work Phone: Evaluation note* Diagnosis Onset Date Resolution Status Anemia in chronic kidney disease chronic 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 bryan Hypertension chronic CKD (chronic kidney disease) chronic Diabetes 1.5, managed as type 1 chronic Hypertension chronic Microalbuminuria chronic Obesity chronic Polyneuropathy chronic Acute kidney injury acute Hyperkalemia acute Hypertensive urgency acute Anemia in chronic illness ch maciic Chronic kidney disease, stage IV (severe) chronic [facility] Work Phone: Evaluation note* Diagnosis Onset Date Resolution Status Anemia in chronic kidney disease chronic 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 bryan Hypertension chronic CKD (chronic kidney disease) [...] without bleeding chronic 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 bryan Loose stools chronic Subepithelial esophageal lesion [facility] Work Phone: Evaluation note* Diagnosis Onset Date Resolution Status Anemia in chronic kidney disease chronic 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 bryan Hypertension chronic CKD (chronic kidney disease) [...] without bleeding chronic 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 bryan Loose stools chronic Subepithelial esophageal lesion [facility] Work Phone: Evaluation note* Diagnosis ESRD on dialysis (HCC)- Primary End stage renal disease Pre-transplant evaluation for ESRD (end stage renal disease) Other specified pre-operative examination Hypertension, unspecified type [facility] Pre-transplant evaluation for kidney transplant- Primary Other specified pre-operative examination [facility] Diagnosis ESRD (end stage renal disease) on dialysis- Primary End stage renal disease Pre-transplant evaluation for kidney transplant Diabetic nephropathy associated with type 2 diabetes mellitus Pre-transplant evaluation for kidney transplant [facility] evaluation for kidney transplant [facility]-transplant evaluation for kidney transplant- Primary [facility] Diagnosis Pre-transplant evaluation for kidney transplant ESRD (end stage renal disease) on dialysis End stage renal disease [facility] Diagnosis Pre-operative cardiovascular examination- Primary Pre-transplant evaluation for kidney transplant ESRD (end stage renal disease) on dialysis End stage renal disease [facility] Diagnosis Pre-transplant evaluation for kidney transplant ESRD (end stage renal disease) on dialysis End stage renal disease [facility] Diagnosis Hepatosplenomegaly- Primary Other chronic nonalcoholic liver disease Liver lesion Other specified disorders of liver Secondary esophageal varices with bleeding Esophageal varices with bleeding in diseases classified elsewhere [facility] Diagnosis Hepatic fibrosis Cirrhosis of liver without mention of alcohol [facility] Diagnosis Liver lesion- Primary Other specified disorders of liver Portal hypertension [facility] Diagnosis Hepatosplenomegaly Other chronic nonalcoholic liver disease Liver lesion Other specified disorders of liver [facility] Author Dr. Renae [facility] November 23, 2022 1:14pm Note Date/Time November 23, 2022 1:1 4pm [facility] Medical Records Department [address] [place] [address] H&P Exam - Hospitalist 11/23/22 1307 MR#: [id number] Acct: [id number] Name: REGINALDO HUFFMAN Rep #:[id number] : 1970 52 From: Maria Antonia Renae MD PCP: Dr. Chriss Cruz MD Status:ADM I NO Location: [place] [address]- 1 HPI - General General Date of Admission: 11/23/22 Date of Service: 11/23/22 HPI Narrative REGINALDO HUFFMAN, is a 52 M with history of trigeminal neuralgia, depression, vertigo, type 2 diabetes mellitus, colon cancer status post resection chemo radiation in 2013, hypertension who presented to [facility] 11/23/2022 after syncopal episode. In the ED he was found to have a hemoglobin of 6.3 and hospitalist consulted for admission. He reportedly has a history of anemia and recently started to shots to help his hemoglobin a week ago through Dr. Ibarra's office though he is not sure which injection this was but said it wasat the suggestion of his machine ii cutter. He had been in his usual health [...] had any GI upset before or after. [facility] Medical History Alcohol abuse Anemia Asthma Cancer [...] % (Auto) 65.2, Lymph % (Auto) 25.6, White % (Auto) 6.0, Eos % (Auto) 1.5, [...] documentation, 60minutes Charges/Coding Visit Charges Inpatient E&M: 76559 Init Hosp L2 11/23/22 1314 <Electronically signed by Maria Antonia Renae MD> Cosigner Signature (if applicable): CC: Dr. Maria Antonia Renae MD; Dr. Chriss Cruz MD~ Signed [facility] Work Phone: Hospital Discharge instructions Additional Instructions Continue take your regular medicines as prescribed. You do have influenza A which likely explains your acute symptoms. You been given inhaler as well as some cough medicine to help with your symptoms. If your breathing worsens please return to the emergency room. I recommend taking werk-upr-ipqktlc Coricidin HBP for rwhs-mrr-ctkuhhz cold and flu medicine as will not affect her blood pressure.[facility] Work Phone: Hospital Discharge instructions Additional Instructions Your creatinine today was 4.0. You need to continue to follow-up outpatient. [facility] Work Phone: Progress note Author Grisel Timmons [facility] Note Date/Time June 18, 2025 1 2:37pm [facility] [address] [place] [address] OFFICE VISIT Date of Service: 06/18/25 MR#: [id number] Acct: [id number] Name: REGINALDO HUFFMAN Rep #: [id number] : 1970 Provider: SERGE Timmons Age/Sex: 54/M Location: [facility] Status: Signed Intake Vital Signs 12/18/24 10:33 06/04/25 08:21 06/18/25 10:44 Height 5 ft 8 in 5 ft 8 in 5 ft 8 in Weight: 203 lb BMI 30.9 BP 145/75 H Blood Pressure Location Lt brachial Position Sitting Pulse 66 Pulse Source Monitor Pulse Oximetry (%) 98 Oxygen Delivery Method room air Intake Visit Reasons: 6 M FU Chief Complaint: f/u diabetes Pc Maintenance Technician 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 Accompanied by: Self Is patient [...] ea 12/18/2406/18 Rx 5/16 (Comfort EZ Pen [place]) carbamazepine 200 mg tablet 600 mg (3 [...] QDAY 06/18/25 History release (Adult Aspirin Regimen) [facility] Medical History (Updated 06/18/25 @ 12:46 by [...] CC: Dr. Kimberlyn East MD ~ [facility] Work Phone: Reason for referral (narrative)* Outpatient Procedure (Routine) - Authorized Specialty Diagnoses / Procedures Referred By Contlurdes t Referred To Contact [facility] Diagnoses Hyperkalemia Primary hypertension Procedures US RENAL ARTERY UNL VAS LAB DUP-SCAN ARTL SHARMIN ABDL/PEL/SCROT&/RPR ORGN LMT Chriss Cruz MD [address] [place] [address] [facility] [address] [place] [address] Referral ID Status Reason Start Date Expiration Date Visits Requested Visits Authorized [id number] Authorized Auto-Generat ed Referral 11/24/2021 11/24/2022 1 1 [facility] for referral (narrative)* Diagnostic Procedure Only (Urgent) - Closed Specialty Diagnoses / Procedures Referred By Contac t Referred To Contact XR IMAGING Diagnoses Osteomyelitis of toe (HCC) Procedures XR FOOT GENERAL 3V AP/LAT/OBL LEFT RADEX FOOT COMPLETE MINIMUM 3 VIEWS Roberto Anderson[address] [place] [address] Xr Imaging Referral ID Status Reason Start Date Expiration Date V isits Requested Visits Authorized [id number] Closed Auto-Generate d Referral 01/28/2022 02/27/2023 1 1 [facility] for referral (narrative)* Diagnostic Procedure [...] 2 VIEWS Roberto Anderson[address] [place] [address] Xr Imaging Referral ID Status Reason Start Date Expiration Date V isits Requested Visits Authorized [id number] Closed Auto-Generate d Referral 02/09/2022 03/11/2023 1 1 [facility] for referral (narrative)No reason for referral information [facility] Work Phone: Reason for visit Narrative* Diagnostic Procedure Only (Urgent) - Closed Specialty Diagnoses / Procedures Referred By Contac t Referred To Contact XR IMAGING Diagnoses Osteomyelitis of toe (HCC) Procedures XR FOOT GENERAL 3V AP/LAT/OBL LEFT RADEX FOOT COMPLETE MINIMUM 3 VIEWS Roberto Anderson[address] [place] [address] Xr Imaging Referral ID Status Reason Start Date Expiration Date V isits Requested Visits Authorized [id number] Closed Auto-Generate d Referral 01/28/2022 02/27/2023 1 1 [facility] for visit Narrative* MRI/CAT Scan (Routine) - Closed Specialty Diagnoses / Procedures Referred By Kimmy garcía Referred To Contact Diagnoses Pre-transplant evaluation for kidney transplant ESRD (end stage renal disease) on dialysis Procedures CT ANGIO ABDOMINAL AORTA WITH RUNOFF CHG CTA ABDL AORTA&BI ILIOFEM W/CONTRAST&POSTP Tyrese Lange MBBS [address] [place] [address] Phone: tel: fax: Referral ID Status Reason Start Date Expiration Date Visits Re quested Visits Authorized [id number] Closed 11/08/2024 12/03/2025 1 1 [facility] for visit Narrative* Radiology (Routine) - Closed Specialty Diagnoses / Procedures Referred By Kimmy garcía Referred To Contact Echocardiography Diagnoses Pre-transplant evaluation for kidney transplant ESRD (end stage renal disease) on dialysis Procedures ECHOCARDIOGRAM ME ECHO TTHRC R-T 2D W/WOM-MODE COMPL SPEC&COLR D Tyrese Lange MBBS [address] [place] [address] Phone: tel: fax: [facility] [address] [place] [address] Phone: tel: Referral ID Status Reason Start Date Expiration Date Visits Re quested Visits Authorized [id number] Closed 11/08/2024 12/03/2025 1 1 [facility] for visit Narrative* Radiology (Routine) - New Request Specialty Diagnoses / Procedures Referred By Kimmy garcía Referred To Contact Diagnoses Pre-transplant evaluation for kidney transplant ESRD (end stage renal disease) on dialysis Procedures NUC MYOCARD PERF STRESS MIBI PHARM NUC MYOCARD PERF STRESS MIBI EXERCISE CHG MYOCARDIAL SPECT MULTIPLE STUDIES ME CV STRS TST XERS&/OR RX CONT ECG TRCG ONLY CHG MYOCARDIAL SPECT MULTIPLE STUDIES-T ME CV STRS TST XERS&/OR RX CONT ECG I&R ONLY ME CV STRS TST XERS&/OR RX CONT ECG W/O I&R Tyrese Lange [employer] [address] [place] [address] Phone: tel: fax: Referral ID Status Reason Start Date Expiration Date V isits Requested Visits Authorized [id number] New Request 11/08/2024 12/03/2025 1 1 [facility] for visit Narrative* Auth/Cert Specialty Diagnoses / Procedures Referred By Kimmy garcía Referred To Contact Diagnoses Hepatic fibrosis Hepatic fibrosis [K74.00] Procedures CHG HEPATC VNGRPH WDG/FR HEMODYN EVAL RS&I ME TRANSCATHETER BIOPSY CHG TRANSCATHETER BIOPSY RS&I VENOGRAPHY HEPATIC W/HEMODYNM EVALUATION W/S&I BX TRANSCATHETER BX TRANSCATHETER W/ S&I [facility] [address] [place] [address] [facility] [address] [place] [address] Referral ID Status Reason Start Date Expiration Date Visits Re quested Visits Authorized [id number] 1 1 [facility] for visit Narrative* MRI/CAT Scan (Routine) - Closed Specialty Diagnoses / Procedures Referred By Kimmy garcía Referred To Contact Diagnoses Hepatosplenomegaly Liver lesion Procedures CT ABDOMEN WITH AND WITHOUT CONTRAST CHG CT ABDOMEN W/O CONTRAST FLWD BY CONTRAST Lillian Macias DO Phone: tel: fax: Referral ID Status Reason Start Date Expiration Date Visits Re quested Visits Authorized [id number] Closed 12/25/2024 01/19/2026 1 1 [facility] Summary Purpose Family History Relationship Condition [...] Documents on File Type Date Recorded Patient Director Video Expl anation Advance Directive(s) Advance Directive(s) 05/03/2019 7:09 AM Documents on File Type Date Recorded Patient Director Video Expl anation Advance Directive(s) Advance Directive(s) 05/03/2019 7:09 AM Advance Directive Response Recorded Date/ Time Name of Medical Power of Hand Inspector KEVIN mother November 21, 2021 12:42pm Name of Medical Power of Hand Inspector November 27, 2021 12:16pm Advance Directives No June 12:24pm Living Will No January 26, 2022 3 :16am Power of Hand Inspector No January 26, 2022 3:16am Documents on File Type Date Recorded Patient Director Video Expl anation Advance Directive(s) Advance Directive(s) 02/04/2022 1:15 PM Advance Directive(s) 05/03/2019 7:09 AM Documents on File Type Date Recorded Patient Director Video Expl anation Advance Directive(s) Advance Directive(s) 02/04/2022 1:15 PM Advance Directive(s) 05/03/2019 7:09 AM Advance Directive Response Recorded Date/ Time Name of Medical Power of Hand Inspector mother BROWN November 21, 2021 12:42pm Name of Medical Power of Hand Inspector November 27, 2021 12:16pm Name of Medical Power of Hand Inspector MARIBEL CEDENO February 13, 2022 1:59pm Advance Directives No June 12:24pm Living Will Yes February 13, 2022 1:59pm Power of Hand Inspector Yes February 13 1:59pm Advance Directive Response Recorded Date/ Time Name of Medical Power of Hand Inspector MARIBEL MOTHER February 13, 2022 1:59pm Advance Directives No June 12:24pm Living Will Yes February 13, 2022 1:59pm Power of Hand Inspector Yes February 13 1:59pm Advance Directive Response Recorded Date/ Time Advance Directives No June 11:24am Living Will Yes February 13, 2022 12:59pm Power of Hand Inspector Yes February 13 12:59pm Advance Directive Response Recorded Date/ Time Advance Directives No June 12:24pm Living Will Yes February 13, 2022 1:59pm Power of Hand Inspector Yes February 13 1:59pm Advance Directive Response Recorded Date/ Time Name of Medical Power of Hand Inspector LOUIS HUFFMAN November 23, 2022 11:10am Advance Directives No June 12:24pm Living Will Yes November 23, 2022 11:10am Power of Hand Inspector Yes November 23 11:10am Advance Directive Response Recorded Date/ Time Name of Medical Power of Hand Inspector Louis Huffman, jose November 23, 2022 2:27pm Advance Directives No June 12:24pm Living Will Yes November 23, 2022 2:27pm Power of Hand Inspector Yes November 23 2:27pm Advance Directive Response Recorded Date/ Time Name of Medical Power of Hand Inspector LOUIS HUFFMAN January 14, 2023 4:31am Advance Directives No June 12:24pm Living Will Yes January 14, 2023 4 :31am Power of Hand Inspector Yes January 14, 2023 4:31am Advance Directive Response Recorded Date/ Time Advance Directives No June 11:24am Living Will No May 25, 2023 11:49am Power of Hand Inspector No April 11:49am Advance Directive Response Recorded Date/ Time Name of Medical Power of Hand Inspector FAMILY July 31, 2023 10:40am Advance Directives No June 11:24am Living Will Yes July 31 10:40am Power of Hand Inspector Yes July 31, 2023 10:40am Advance Directive Response Recorded Date/ Time Name of Medical Power of Hand Inspector FAMILY July 31, 2023 10:40am Advance Directives No June 11:24am Living Will No October 16, 8:35am Power of Hand Inspector No October 16, 2023 8:35am Advance Directive Response Recorded Date/ Time Name of Medical Power of Hand Inspector FAMILY July 31, 2023 11:40am Advance Directives No June 12:24pm Living Will No October 16, 024 9:35am Power of Hand Inspector No October 16, 2023 9:35am Advance Directive Response Recorded Date/ Time Name of Medical Power of Hand Inspector Louis Huffman December 07, 2023 10:11pm Advance Directives No June 12:24pm Living Will Yes December 07, 2023 10:11pm Power of Hand Inspector Yes December 06 10:11pm Advance Directive Response Recorded Date/ Time Name of Medical Power of Hand Inspector Louis Huffman December 07, 2023 10:11pm Name of Medical Power of Hand Inspector louis herrera other December 18, 2023 3:13pm Advance Directives No June 12:24pm Living Will Yes December 18, 2023 3:13pm Power of Hand Inspector Yes December 17 3:13pm Advance Directive Response Recorded Date/ Time Living Will Yes June 26 12:39pm Do you have a Healthcare Pow er of Hand Inspector? Yes June 26, 2024 12:39pm Living Will No November 13, 2015 9:15pm Do you have a Healthcare Pow er of Hand Inspector? No November 13, 2015 9:15pm Advance Directives on File Yes October 30, 2024 8:46am Do you have a Healthcare Pow er of Hand Inspector? Yes October 30, 2024 8:46am Name of Medical Power of Hand Inspector Louis Herrera other October 30, 2024 8:46am Advance Directives Yes October 30 8:46am Advance Directive Response Recorded Date/ Time Living Will Yes June 26 12:39pm Do you have a Healthcare Power of Hand Inspector? Yes June 26, 2024 12:39pm Living Will No November 13, 2015 9:15pm Do you have a Healthcare Power of Hand Inspector? No November 13, 2015 9:15pm Advance Directives Yes October 30 8:46am Advance Directive Response Recorded Date/ Time Living Will No November 13, 2015 9:15pm Do you have a Healthcare Power of Hand Inspector? No November 13, 2015 9:15pm Advance Directives Yes October 30 8:46am Advance Directive Response Recorded Date/ Time Living Will No November 13, 2015 9:15pm Do you have a Healthcare Power of Hand Inspector? No November 13, 2015 9:15pm Advance Directives on File No Octob er 2024 8:21am Living Will Yes June 04 8:21am Do you have a Healthcare Power of Hand Inspector? Yes June 04, 2025 8:21am Name of Medical Power of Hand Inspector Mother June 04, 2025 8:21am Advance Directives Yes June 04, 2025 8:21am Advance Directive Response Recorded Date/ Time Living Will No November 13, 2015 8:15pm Do you have a Healthcare Power of Hand Inspector? No November 13, 2015 8:15pm Advance Directives on File No Octob er 2024 7:21am Living Will Yes June 04 7:21am Do you have a Healthcare Power of Hand Inspector? Yes June 04, 2025 7:21am Name of Medical Power of Hand Inspector Mother June 04, 2025 7:21am Advance Directives [...] Admit Date Vascular dialysis catheter in place [facility] 2024 7:21am History of colon cancer December [...] 10:11am An[facility] in [facility] 10:11[facility] Gastric varices without bleeding [facility] 2024 10:11am History of colon cancer [...] encounter TestRoberto vazquez [address] [place] [address] Referral ID Status Reason Start Date Expiration Date Visits Re quested Visits Authorized [id number] Closed 1 1 Specialty Diagnoses / Procedures Referred By Kimmy garcía Referred To Contact XR IMAGING Diagnoses Osteomyelitis of toe (HCC) Procedures XR FOOT GENERAL 3V AP/LAT/OBL LEFT RADEX FOOT COMPLETE MINIMUM 3 VIEWS Roberto Anderson [address] [place] [address] Xr Imaging Referral ID Status Reason Start Date Expiration Date V isits Requested Visits Authorized [id number] Closed Auto-Generate d Referral 01/28/2022 02/27/2023 1 [...] eye and macular edema (HCC) Candy Penn, CHAPARRITA.[employer] FLOOR SUPERVISOR [address] [address] Referral ID Status Reason Start Date Expiration Date Visits Re quested Visits Authorized [id number] Closed 1 1 Specialty Diagnoses / Procedures [...] eye and macular edema (HCC) Candy Penn APRN.[employer]LOOR SUPERVISOR [address] [place] [address] Referral ID Status Reason Start Date Expiration Date Visits Re quested Visits Authorized [id number] Closed 1 1 Specialty Diagnoses / Procedures [...] W & W/O CONTRAST Tim Huynh MD [address] [place] [address] [facility] [address] [place] [address] Referral ID Status Reason Start Date Expiration Date Visits Requested Visits Authorized [id number] Pending Review Financial Clearance Required - OON Payor 09/11/2024 09/11/2025 99 99 Additional Source Comments (unrecognized sect ion and content) No Status Records FoundNo Status Records FoundNo Status Records FoundNo Status Records FoundNo Status Records Found INFORMATION SOURCE (unrecogn ized section and content) DATE CREATED AUTHOR 02/03/2021 [facility] DATE CREATED AUTHOR AUTHOR'S ORGANIZ ATION 02/08/2022 [facility] DATE CREATED AUTHOR AUTHOR'S ORGANIZ ATION 12/01/[address] [facility] DATE CREATED AUTHOR AUTHOR'S ORGANIZ ATION 06/29/2025 [facility] DATE CREATED AUTHOR AUTHOR'S ORGANIZ ATION 07/02/2025 [facility] Source Comments (unrecognize d section and content) In the event this informatio n is protected by the Federal Confidentiality of Alcohol and Drug Abuse Patient Records regulations: The Federal rules restrict any use of the information to criminally investigate or prosecute any alcohol or drug abuse patient.[facility] event this information is protected by the Federal Confidentiality of Alcohol and Drug Abuse Patient Records regulations: The Federal rules restrict any use of the information to criminally investigate or prosecute any alcohol or drug abuse patient.[facility] the event this information is protected by the Federal Confidentiality of Alcohol and Drug Abuse Patient Records regulations: The Federal rules restrict any use of the information to criminally investigate or prosecute any alcohol or drug abuse patient.[facility] the event this information is protected by the Federal Confidentiality of Alcohol and Drug Abuse Patient Records regulations: The Federal rules restrict any use of the information to criminally investigate or prosecute any alcohol or drug abuse patient.[facility] the event this information is protected by the Federal Confidentiality of Alcohol and Drug Abuse Patient Records regulations: The Federal rules restrict any use of the information to criminally investigate or prosecute any alcohol or drug abuse patient.[facility] the event this information is protected by the Federal Confidentiality of Alcohol and Drug Abuse Patient Records regulations: The Federal rules restrict any use of the information to criminally investigate or prosecute any alcohol or drug abuse patient.[facility] the event this information is protected by the Federal Confidentiality of Alcohol and Drug Abuse Patient Records regulations: The Federal rules restrict any use of the information to criminally investigate or prosecute any alcohol or drug abuse patient.[facility] the event this information is protected by the Federal Confidentiality of Alcohol and Drug Abuse Patient Records regulations: The Federal rules restrict any use of the information to criminally investigate or prosecute any alcohol or drug abuse patient.[facility] the event this information is protected by the Federal Confidentiality of Alcohol and Drug Abuse Patient Records regulations: The Federal rules restrict any use of the information to criminally investigate or prosecute any alcohol or drug abuse patient.[facility] the event this information is protected by the Federal Confidentiality of Alcohol and Drug Abuse Patient Records regulations: The Federal rules restrict any use of the information to criminally investigate or prosecute any alcohol or drug abuse patient.[facility] the event this information is protected by the Federal Confidentiality of Alcohol and Drug Abuse Patient Records regulations: The Federal rules restrict any use of the information to criminally investigate or prosecute any alcohol or drug abuse patient.[facility] HospitalIn the event this information is protected by the Federal Confidentiality of Alcohol and Drug Abuse Patient Records regulations: The Federal rules restrict any use of the information to criminally investigate or prosecute any alcohol or drug abuse patient.[facility] HospitalIn the event this information is protected by the Federal Confidentiality of Alcohol and Drug Abuse Patient Records regulations: The Federal rules restrict any use of the information to criminally investigate or prosecute any alcohol or drug abuse patient.[facility] HospitalIn the event this information is protected by the Federal Confidentiality of Alcohol and Drug Abuse Patient Records regulations: The Federal rules restrict any use of the information to criminally investigate or prosecute any alcohol or drug abuse patient.[facility] HospitalIn the event this information is protected by the Federal Confidentiality of Alcohol and Drug Abuse Patient Records regulations: The Federal rules restrict any use of the information to criminally investigate or prosecute any alcohol or drug abuse patient.[facility] HospitalIn the event this information is protected by the Federal Confidentiality of Alcohol and Drug Abuse Patient Records regulations: The Federal rules restrict any use of the information to criminally investigate or prosecute any alcohol or drug abuse patient.[facility] HospitalIn the event this information is protected by the Federal Confidentiality of Alcohol and Drug Abuse Patient Records regulations: The Federal rules restrict any use of the information to criminally investigate or prosecute any alcohol or drug abuse patient.[facility] HospitalIn the event this information is protected by the Federal Confidentiality of Alcohol and Drug Abuse Patient Records regulations: The Federal rules restrict any use of the information to criminally investigate or prosecute any alcohol or drug abuse patient.[facility] HospitalIn the event this information is protected by the Federal Confidentiality of Alcohol and Drug Abuse Patient Records regulations: The Federal rules restrict any use of the information to criminally investigate or prosecute any alcohol or drug abuse patient.[facility] HospitalIn the event this information is protected by the Federal Confidentiality of Alcohol and Drug Abuse Patient Records regulations: The Federal rules restrict any use of the information to criminally investigate or prosecute any alcohol or drug abuse patient.[facility] HospitalIn the event this information is protected by the Federal Confidentiality of Alcohol and Drug Abuse Patient Records regulations: The Federal rules restrict any use of the information to criminally investigate or prosecute any alcohol or drug abuse patient.[facility] HospitalIn the event this information is protected by the Federal Confidentiality of Alcohol and Drug Abuse Patient Records regulations: The Federal rules restrict any use of the information to criminally investigate or prosecute any alcohol or drug abuse patient.[facility] HospitalIn the event this information is protected by the Federal Confidentiality of Alcohol and Drug Abuse Patient Records regulations: The Federal rules restrict any use of the information to criminally investigate or prosecute any alcohol or drug abuse patient.[facility] HospitalIn the event this information is protected by the Federal Confidentiality of Alcohol and Drug Abuse Patient Records regulations: The Federal rules restrict any use of the information to criminally investigate or prosecute any alcohol or drug abuse patient.[facility] HospitalIn the event this information is protected by the Federal Confidentiality of Alcohol and Drug Abuse Patient Records regulations: The Federal rules restrict any use of the information to criminally investigate or prosecute any alcohol or drug abuse patient.[facility] HospitalIn the event this information is protected by the Federal Confidentiality of Alcohol and Drug Abuse Patient Records regulations: The Federal rules restrict any use of the information to criminally investigate or prosecute any alcohol or drug abuse patient.[facility] HospitalIn the event this information is protected by the Federal Confidentiality of Alcohol and Drug Abuse Patient Records regulations: The Federal rules restrict any use of the information to criminally investigate or prosecute any alcohol or drug abuse patient.[facility] HospitalIn the event this information is protected by the Federal Confidentiality of Alcohol and Drug Abuse Patient Records regulations: The Federal rules restrict any use of the information to criminally investigate or prosecute any alcohol or drug abuse patient.[facility] HospitalIn the event this information is protected by the Federal Confidentiality of Alcohol and Drug Abuse Patient Records regulations: The Federal rules restrict any use of the information to criminally investigate or prosecute any alcohol or drug abuse patient.[facility] HospitalIn the event this information is protected by the Federal Confidentiality of Alcohol and Drug Abuse Patient Records regulations: The Federal rules restrict any use of the information to criminally investigate or prosecute any alcohol or drug abuse patient.[facility] HospitalIn the event this information is protected by the Federal Confidentiality of Alcohol and Drug Abuse Patient Records regulations: The Federal rules restrict any use of the information to criminally investigate or prosecute any alcohol or drug abuse patient.[facility] HospitalIn the event this information is protected by the Federal Confidentiality of Alcohol and Drug Abuse Patient Records regulations: The Federal rules restrict any use of the information to criminally investigate or prosecute any alcohol or drug abuse patient.[facility] HospitalIn the event this information is protected by the Federal Confidentiality of Alcohol and Drug Abuse Patient Records regulations: The Federal rules restrict any use of the information to criminally investigate or prosecute any alcohol or drug abuse patient.[facility] HospitalIn the event this information is protected by the Federal Confidentiality of Alcohol and Drug Abuse Patient Records regulations: The Federal rules restrict any use of the information to criminally investigate or prosecute any alcohol or drug abuse patient.[facility] HospitalIn the event this information is protected by the Federal Confidentiality of Alcohol and Drug Abuse Patient Records regulations: The Federal rules restrict any use of the information to criminally investigate or prosecute any alcohol or drug abuse patient.[facility] HospitalIn the event this information is protected by the Federal Confidentiality of Alcohol and Drug Abuse Patient Records regulations: The Federal rules restrict any use of the information to criminally investigate or prosecute any alcohol or drug abuse patient.[facility] HospitalIn the event this information is protected by the Federal Confidentiality of Alcohol and Drug Abuse Patient Records regulations: The Federal rules restrict any use of the information to criminally investigate or prosecute any alcohol or drug abuse patient.[facility] HospitalIn the event this information is protected by the Federal Confidentiality of Alcohol and Drug Abuse Patient Records regulations: The Federal rules restrict any use of the information to criminally investigate or prosecute any alcohol or drug abuse patient.[facility] HospitalIn the event this information is protected by the Federal Confidentiality of Alcohol and Drug Abuse Patient Records regulations: The Federal rules restrict any use of the information to criminally investigate or prosecute any alcohol or drug abuse patient.[facility] HospitalIn the event this information is protected by the Federal Confidentiality of Alcohol and Drug Abuse Patient Records regulations: The Federal rules restrict any use of the information to criminally investigate or prosecute any alcohol or drug abuse patient.[facility] HospitalIn the event this information is protected by the Federal Confidentiality of Alcohol and Drug Abuse Patient Records regulations: The Federal rules restrict any use of the information to criminally investigate or prosecute any alcohol or drug abuse patient.[facility] HospitalIn the event this information is protected by the Federal Confidentiality of Alcohol and Drug Abuse Patient Records regulations: The Federal rules restrict any use of the information to criminally investigate or prosecute any alcohol or drug abuse patient.[facility] HospitalIn the event this information is protected by the Federal Confidentiality of Alcohol and Drug Abuse Patient Records regulations: The Federal rules restrict any use of the information to criminally investigate or prosecute any alcohol or drug abuse patient.[facility] HospitalIn the event this information is protected by the Federal Confidentiality of Alcohol and Drug Abuse Patient Records regulations: The Federal rules restrict any use of the information to criminally investigate or prosecute any alcohol or drug abuse patient.[facility] HospitalIn the event this information is protected by the Federal Confidentiality of Alcohol and Drug Abuse Patient Records regulations: The Federal rules restrict any use of the information to criminally investigate or prosecute any alcohol or drug abuse patient.[facility] HospitalIn the event this information is protected by the Federal Confidentiality of Alcohol and Drug Abuse Patient Records regulations: The Federal rules restrict any use of the information to criminally investigate or prosecute any alcohol or drug abuse patient.[facility] HospitalIn the event this information is protected by the Federal Confidentiality of Alcohol and Drug Abuse Patient Records regulations: The Federal rules restrict any use of the information to criminally investigate or prosecute any alcohol or drug abuse patient.[facility] HospitalIn the event this information is protected by the Federal Confidentiality of Alcohol and Drug Abuse Patient Records regulations: The Federal rules restrict any use of the information to criminally investigate or prosecute any alcohol or drug abuse patient.[facility] HospitalIn the event this information is protected by the Federal Confidentiality of Alcohol and Drug Abuse Patient Records regulations: The Federal rules restrict any use of the information to criminally investigate or prosecute any alcohol or drug abuse patient.[facility] HospitalIn the event this information is protected by the Federal Confidentiality of Alcohol and Drug Abuse Patient Records regulations: The Federal rules restrict any use of the information to criminally investigate or prosecute any alcohol or drug abuse patient.[facility] HospitalIn the event this information is protected by the Federal Confidentiality of Alcohol and Drug Abuse Patient Records regulations: The Federal rules restrict any use of the information to criminally investigate or prosecute any alcohol or drug abuse patient.[facility] HospitalIn the event this information is protected by the Federal Confidentiality of Alcohol and Drug Abuse Patient Records regulations: The Federal rules restrict any use of the information to criminally investigate or prosecute any alcohol or drug abuse patient.[facility] Reason for Visit (unrecogniz ed section [...] Physician Consult Reason Comments Diabetic Eye Exam [facility] Reason Comments Bradycardia Reason Comments [...] up Reason Comments Diabetic Eye Exam Report [facility] Reason Onset Date Comments Refill Request 05/29/2023 Reason Comments Referral - Kidney Txp Reason Comments Kidney Recipient Evaluation Specialty Diagnoses / Procedures Referred By Contac t Referred To Contact Nephrology / Transplant Surgery Procedures PRE NEW PATIENT Self, Self Tyrese Lange, RYANNE [address] [place] [address] Phone: tel: fax: Referral ID Status Reason Start Date Expiration Date V isits Requested Visits Authorized [id number] New Request 11/08/2024 12/03/2025 1 1 Reason Comments Social Work Consult Reason Comments Referral - Kidney Txp NS on 11/20 Reason Comments New Patient Pt.states he's his l abs have been elevated. Specialty Diagnoses / Procedures Referred By Kimmy garcía Referred To Contact Gastroenterology Diagnoses Pre-transplant evaluation for kidney transplant Tyrese Lange, RYANNE [address] [place] [address] Phone: tel: fax: Referral ID Status Reason Start Date Expiration Date V isits Requested Visits Authorized [id number] New Request 12/19/2024 01/13/2026 1 1 Reason Comments Follow-up Pt is doing ok Care Teams (unrecognized sec tion and content) Procurement Accountant Relationship Specialty Start Date End Date Chriss Cruz MD [address] [place] [address] PCP - General Family Practice 01/17/19 Jeancarlos Wolff MD [address] [place] [address] Gastroenterology 09/04/14 Procurement Accountant Relationship Specialty Start Date End Date Chriss Cruz MD [address] [place] [address] PCP - General Family Practice 01/17/19 Jeancarlos Wolff MD [address] [place] [address] Gastroenterology 09/04/14 Procurement Accountant Relationship Specialty Start Date End Date Chriss Cruz MD [address] [place] [address] PCP - General Family Practice 01/17/19 Jeancarlos Wolff MD [address] [place] [address] Gastroenterology 09/04/14 Procurement Accountant Relationship Specialty Start Date End Date Chriss Cruz MD [address] [place] [address] PCP - General Family Practice 01/17/19 Jeancarlos Wolff MD [address] [place] [address] Gastroenterology 09/04/14 Procurement Accountant Relationship Specialty Start Date End Date Chriss Cruz MD [address] [place] [address] PCP - General Family Practice 01/17/19 Jeancarlos Wolff MD [address] [place] [address] Gastroenterology 09/04/14 Procurement Accountant Relationship Specialty Start Date End Date Chriss Cruz MD [address] [place] [address] PCP - General Family Practice 01/17/19 Jeancarlos Wolff MD [address] [place] [address] Gastroenterology 09/04/14 Procurement Accountant Relationship Specialty Start Date End Date Chriss Cruz MD [address] [place] [address] PCP - General Family Practice 01/17/19 Jeancarlos Wolff MD [address] [place] [address] Gastroenterology 09/04/14 Procurement Accountant Relationship Specialty Start Date End Date Chriss Cruz MD [address] [place] [address] PCP - General Family Practice 01/17/19 Jeancarlos Wolff MD [address] [place] [address] Gastroenterology 09/04/14 Procurement Accountant Relationship Specialty Start Date End Date Chriss Cruz MD [address] [place] [address] PCP - General Family Practice 01/17/19 Jeancarlos Wolff MD [address] [place] [address] Gastroenterology 09/04/14 Procurement Accountant Relationship Specialty Start Date End Date Chriss Cruz MD [address] [place] [address] PCP - General Family Practice 01/17/19 Jeancarlos Wolff MD [address] [place] [address] Gastroenterology 09/04/14 Procurement Accountant Relationship Specialty Start Date End Date Chriss Cruz MD [address] [place] [address] PCP - General Family Practice 01/17/19 Jeancarlos Wolff MD [address] [place] [address] Gastroenterology 09/04/14 Procurement Accountant Relationship Specialty Start Date End Date Chriss Cruz MD [address] [place] [address] PCP - General Family Practice 01/17/19 Jeancarlos Wolff MD [address] [facility] [place] [address] Gastroenterology 09/04/14 Procurement Accountant Relationship Specialty Start Date End Date Chriss Cruz MD [address] [place] [address] PCP - General Family Practice 01/17/19 Jeancarlos Wolff MD [address] [place] [address] Gastroenterology 09/04/14 Procurement Accountant Relationship Specialty Start Date End Date Chriss Cruz MD [address] [place] [address] PCP - General Family Practice 01/17/19 Jeancarlos Wolff MD [address] [place] [address] Gastroenterology 09/04/14 Procurement Accountant Relationship Specialty Start Date End Date Chriss Cruz MD [address] [place] [address] PCP - General Family Practice 01/17/19 Jeancarlos Wolff MD [address] [place] [address] Gastroenterology 09/04/14 Procurement Accountant Relationship Specialty Start Date End Date Chriss Cruz MD [address] [place] [address] PCP - General Family Practice 01/17/19 Jeancarlos Wolff MD [address] [place] [address] Gastroenterology 09/04/14 Procurement Accountant Relationship Specialty Start Date End Date Chriss Cruz MD [address] [place] [address] PCP - General Family Medicine 01/17/19 Jeancarlos Wolff MD [address] [place] [address] Gastroenterology 09/04/14 Procurement Accountant Relationship Specialty Start Date End Date Chriss Cruz MD [address] [place] [address] PCP - General Family Medicine 01/17/19 Jeancarlos Wolff MD [address] [facility] [place] [address] Gastroenterology 09/04/14 Procurement Accountant Relationship Specialty Start Date End Date Chriss Cruz MD [address] [place] [address] PCP - General Family Medicine 01/17/19 Jeancarlos Wolff MD [address] [facility] [place] [address] Gastroenterology 09/04/14 Procurement Accountant Relationship Specialty Start Date End Date Chriss Cruz MD [address] [place] [address] PCP - General Family Medicine 01/17/19 Jeancarlos Wolff MD [address] [facility] [place] [address] Gastroenterology 09/04/14 Procurement Accountant Relationship Specialty Start Date End Date Chriss Cruz MD [address] [place] [address] PCP - General Family Medicine 01/17/19 Jeancarlos Wolff MD [address] [facility] [place] [address] Gastroenterology 09/04/14 Procurement Accountant Relationship Specialty Start Date End Date Chriss Cruz MD [address] [place] [address] PCP - General Family Medicine 01/17/19 Jeancarlos Wolff MD [address] [facility] [place] [address] Gastroenterology 09/04/14 Procurement Accountant Relationship Specialty Start Date End Date Chriss Cruz MD [address] [place], [place] [address] PCP - General Family Medicine 01/17/19 Jeancarlos Wolff MD [address] [place] [address] Gastroenterology 09/04/14 Procurement Accountant Relationship Specialty Start Date End Date Chriss Cruz MD [address], [place] [id number] PCP - General Family Medicine 01/17/19 Jeancarlos Wolff MD [address] [place] [address] Gastroenterology 09/04/14 Team Status: Active [...] MD Admit Provider, Attending Provid er Active Procurement Accountant Relationship Specialty Start Date End Date Chriss Cruz MD [address] [place] [address] PCP - General Family Medicine 01/17/19 Jeancarlos Wolff MD [address] [place] [address] Gastroenterology 09/04/14 Procurement Accountant Relationship Specialty Start Date End Date Chriss Cruz MD [address] [place] [address] PCP - General Family Medicine 01/17/19 Jeancarlos Wolff MD [address] [place] [address] Gastroenterology 09/04/14 Procurement Accountant Relationship Specialty Start Date End Date Chriss Cruz MD [address] [place] [address] PCP - General Family Medicine 01/17/19 Jeancarlos Wolff MD [address] [place] [address] Gastroenterology 09/04/14 Procurement Accountant Relationship Specialty Start Date End Date Chriss Cruz MD [address] [place] [address] PCP - General Family Medicine 01/17/19 Jeancarlos Wolff MD [address] [place], [place] [address] Gastroenterology 09/04/14 Procurement Accountant Relationship Specialty Start Date End Date Chriss Cruz MD [address] [place] [address] PCP - General Family Medicine 01/17/19 Jeancarlos Wolff MD [address] [place] [address] Gastroenterology 09/04/14 Procurement Accountant Relationship Specialty Start Date End Date Chriss Cruz MD [address] [place] [address] PCP - General Family Medicine 01/17/19 Jeancarlos Wolff MD [address] [place] [address] Gastroenterology 09/04/14 Team Status: Inactive Member Role [...] Provider, Referring Provider Active Ashley Garrido NP, BODS DEVELOPER-C Attending Provider Active Team Status: Inactive Member Role Status Dates Dr. Chriss Cruz MD Primary Care Provider, Referring Provider Active Dr. Aquiles Warren DO Attending Provider Active Team Status: Inactive Member Role Status Dates Dr. Chriss Cruz MD Primary Care Provider, Referring Provider Active Maureen Campbell NP, BODS DEVELOPER-C Attending Provider Active Team Status: Inactive Member Role Status Dates Dr. Chriss Cruz MD Primary Care Provider Active Dr. Cash Dockery MD Attending Provider, Emergency Provider Active Team Status: Inactive Member Role Status Dates Dr. Chriss Cruz MD Primary Care Provider Active Dr. Jamaal Rm MD Attending Provider, Referri ng Provider Active Procurement Accountant Relationship Specialty Start Date End Date Chriss Cruz MD [address] [place] [address] PCP - General Family Medicine 01/17/19 Jeancarlos Wolff MD [address] [place] [address] Gastroenterology 09/04/14 Procurement Accountant Relationship Specialty Start Date End Date Chriss Cruz MD [address] [place] [address] PCP - General Family Medicine 01/17/19 Jeancarlos Wolff MD [address] [place] [address] Gastroenterology 09/04/14 Team Status: Active Member Role [...] Active Logan Harvey MD Emergency Provider Active Procurement Accountant Relationship Specialty Start Date End Date Chriss Cruz MD [address] [place], [place] [address] PCP - General Family Medicine 01/17/19 Jeancarlos Wolff MD [address] [place], [place] [address] Gastroenterology 09/04/14 Team Status: Active Member Role Status Dates Luciana Garcia , DO Primary Care Provider Active Dr. Aquiles Warren , DO Attending Provider, Referring Provider Active Procurement Accountant Relationship Specialty Start Date End Date Chriss Cruz MD [address] [place] [address] PCP - General Family Medicine 01/17/19 Jeancarlos Wolff MD [address] [place], [place] [address] Gastroenterology 09/04/14 Lindsay Wallace APRN.TABLE G[employer] FLOOR SUPERVISOR [address] [place] [address] Staff Psychologist Family Medicine 08/05/24 Ilene Bhatia APRN.[employer] FLOOR SUPERVISOR [address] [place] [address] Staff Psychologist Family Medicine 08/05/24 Procurement Accountant Relationship Specialty Start Date End Date Chriss Cruz MD [address] [place], [place] [id number] PCP - General Family Medicine 01/17/19 Jeancarlos Wolff MD [address] [place], [place] [id number] Gastroenterology 09/04/14 Lindsay Wallace APRN.[employer] FLOOR SUPERVISOR [address] [facility] [place] [address] Staff Psychologist Family [facility] 08/05/24 Ilene Bhatia APRN.[employer] FLOOR SUPERVISOR [address] [place] [address] Staff Psychologist Family [facility] 08/05/24 Procurement Accountant Relationship Specialty Start Date End Date Kimberlyn East MD [address] [facility] [address] [place] [address] PCP - General Family Medicine 11/08/24 Procurement Accountant Relationship Specialty Start Date End Date Kimberlyn East MD [address] [facility] [address] [place] [id number] PCP - General Family Medicine 11/08/24 Procurement Accountant Relationship Specialty Start Date End Date Kimberlyn East MD [address] [facility] [address] [place] [phone] PCP - General Family Medicine 11/08/24 Procurement Accountant Relationship Specialty Start Date End Date Chriss Cruz MD [address] [place] [address] PCP - General Family Medicine 01/17/19 Jeancarlos Wolff MD [address] [place] [address] Gastroenterology 09/04/14 Lindsay Wallace APRN.[employer] FLOOR SUPERVISOR [address] [place] [address] [facility]24 Ilene Bhatia APRN.[employer] FLOOR SUPERVISOR [address] [place], [place] [address] Staff Psychologist Family [facility] 08/05/24 Procurement Accountant Relationship Specialty Start Date End Date Chriss Cruz MD [address] [place], [place] [id number] PCP - General Family Medicine 01/17/19 Jeancarlos Wolff MD [address] [place] [address] Gastroenterology 09/04/14 Lindsay Wallace ENVELOPE ADDRESSER.TABLE G[employer] FLOOR SUPERVISOR [address] [place] [address] Staff Psychologist Family [facility] 08/05/24 Ilene Bhatia, ENVELOPE ADDRESSER.TABLE GAMES FLOOR SUPERVISOR [address] [employer] [place], [place] [address] Staff Psychologist Family [facility] 08/05/24 Procurement Accountant Relationship Specialty Start Date End Date Kimberlyn East MD PCP - General Family Medicine 11/08/24 Procurement Accountant Relationship Specialty Start Date End Date Kimberlyn East MD PCP - General Family Medicine 11/08/24 Procurement Accountant Relationship Specialty Start Date End Date Kimberlyn East MD PCP - General Family Medicine 11/08/24 Procurement Accountant Relationship Specialty Start Date End Date Kimberlyn [...] April 21, 2025 End: April 21, 2025 Procurement Accountant Relationship Specialty Start Date End Date Kimberlyn East MD PCP - General Family Medicine 11/08/24 Procurement Accountant Relationship Specialty Start Date End Date Kimberlyn [...] 50% needed, contact pharmacy or obtain from [facility] cart ++ Group 2: Naloxone (NARCAN) injection [...] BE BASED ON THE PRIMARY CLINICAL RECORDS. [employer] provides no warranty or guarantee of the accuracy or completeness of information in this document.
[2025-08-22] MEDS: 0.9% Saline Lock 10 ML Syringe IV (18:06)
[2025-08-22] MEDS: Heparin Injection (Vial) 5,000 UNIT/ML VIAL 5000 UNIT SC (21:34)
[2025-08-22] MEDS: Insulin Glargine-YFGN 100 UNIT/ML Pen 25 UNIT SC (21:39)
--- NOTE | 2025-08-22 23:21 | PCM.HOSP.N ---
Hospitalist Note Pt reprts chr back pain, requesting something more than Tylenol. He denies having specific allergy to morphine, I ordered tramadol 50mg PO TID prn. I did not consider ketorolac d/t current PEDRO LUIS on CKD.
[2025-08-23] VITALS (17 sets, daily range): BP systolic 127–189; BP diastolic 60–81; PULSE 53–71; RESP 12–18; TEMP 36.5–37.1; O2SAT 97–99; BMI 28.7; BMI 28.5
[2025-08-23] MEDS: Heparin Injection (Vial) 5,000 UNIT/ML VIAL 5000 UNIT SC ×3 (05:49→21:39)
[2025-08-23 06:28] LABS: Hematocrit 24.3 % (40-54); Hemoglobin 8.3 g/dL (13.0-16.5); Immature Granulocytes Count 0.180 X10^3/uL (0.0-0.0); Mean Corp Hgb Conc 34.2 g/dL (32-36); Mean Corpuscular Volume 99.6 fL (80-94); Mean Platelet Vol. 10.7 fl (6.2-12.0); NRBC Flagged by Analyzer 0 % (0-5); Platelet Count 134 K/mm3 (150-450); RBC Distribution Width CV 16.0 % (11.6-14.6); RBC Distribution Width SD 59.2 fl (35.1-43.9); Red Blood Count 2.44 M/mm3 (4.6-6.2); White Blood Count 12.1 K/mm3 (4.4-11.0)
[2025-08-23 07:14] LABS: Anion Gap 18 (7-18); BUN 61 mg/dL (4-19); BUN/Creat Ratio 6.8 RATIO (10-20); Calcium,Total 8.2 mg/dL (7.6-11.0); Carbon Dioxide 23.8 mmol/L (20.0-29.0); Chloride 92 mmol/L (96-106); Estimated Creatinine Clearance 9.89 ml/min (50-250); Glucose 118 mg/dL (70-99); Potassium 4.3 mmol/L (3.5-5.1)
[2025-08-23] MEDS: 0.9% Normal Saline 1,000 ML IV.SOLN. 1000 ML OPERA.SITE (07:52)
[2025-08-23] MEDS: PureFlow B 2K Dialysis Soln 1 BAG 6 BAG PF (07:53)
[2025-08-23] MEDS: Epoetin Alfa epbx 10,000 UNIT/ML 10000 UNIT IV (08:43)
--- NOTE | 2025-08-23 09:03 | PCM.PN.HOSP ---
Reason for Visit Chief Complaint: urinary frequency, fever Subjective Subjective Feeling ok. Still with abdominal and back pain . Objective Data Objective Data Vital Signs: Vital Signs Temp Pulse Resp BP Pulse Ox O2 Del Method 36.6 C 53 L 16 162/72 H 98 Room Air 08/23/25 07:30 08/23/25 08:30 08/23/25 07:30 08/23/25 08:30 08/23/25 07:30 08/23/25 07:30 Oxygen Delivery Method Room Air Weight: 85.9 kg Body Mass Index (BMI) 28.7 Intake & Output: Intake and Output for Last 24 Hours 08/21/25 08/22/25 08/23/25 23:59 23:59 23:59 Intake Total 650 / 650 200 / 200 Balance 650 / 650 200 / 200 Lab / Micro Data 08/23/25 06:15 08/23/25 06:15 Labs: Laboratory Results - last 24 hr 08/22/25 09:56: Urine Color Yellow, Urine Clarity Sl. Cloudy, Urine pH 8.0, Ur Specific Bow 1.015, Urine Protein 500 H, Urine Glucose (UA) 100 H, Urine Ketones 5 H, Urine Occult Blood 150 H, Urine Nitrite Negative, Urine Bilirubin Negative, Urine Urobilinogen Normal, Ur Leukocyte Esterase 100 H, Urine RBC 5-10 SEEN, Urine WBC 5-10 SEEN, Ur Squamous Epith Cells 0 SEEN, Urine Bacteria 0 SEEN, Urine Mucus 0 SEEN 08/22/25 10:00: WBC 11.9 H, RBC 2.61 L, Hgb 8.9 L, Hct 25.8 L, MCV 98.9 H, MCH 34.1 H, MCHC 34.5, RDW Std Deviation 59.3 H, RDW Coeff of Ever 16.3 H, Plt Count 129 L, MPV 9.8, Immature Gran % (Auto) 0.800, Neut % (Auto) 83.7 H, Lymph % (Auto) 9.6 L, [place] % (Auto) 5.5, Eos % (Auto) 0.2, Baso % (Auto) 0.2, Absolute Neuts (auto) 9.9 H, Absolute Lymphs (auto) 1.14, Nucleated RBC % 0, PT 17.7 H, INR 1.4, APTT 36.3 H, Sodium 134 L, Potassium 4.2, Chloride 91 L, Carbon Dioxide 25.9, Anion Gap 17, BUN 45 H, Creatinine 7.38 H, Estim Creat Clear Calc 12.15 L, Est GFR (MDRD) Non-Af 8 L, BUN/Creatinine Ratio 6.1 L, Glucose 191 H, Lactic Acid < 1.0, Calcium 8.5, Total Bilirubin 0.57, Direct Bilirubin 0.33 H, AST 16, ALT 11, Alkaline Phosphatase 105, Total Protein 7.5, Albumin 4.3, Globulin 3.2, Lipase 71 08/22/25 12:09: POC Glucose 191 H 08/22/25 15:08: POC Glucose 180 H 08/22/25 16:33: POC Glucose 165 H 08/22/25 21:37: POC Glucose 162 H 08/23/25 01:22: POC Glucose 127 H 08/23/25 06:15: WBC 12.1 H, RBC 2.44 L, Hgb 8.3 L, Hct 24.3 L, MCV 99.6 H, MCH 34.0 H, MCHC 34.2, RDW Std Deviation 59.2 H, RDW Coeff of Ever 16.0 H, Plt Count 134 L, MPV 10.7, Immature Gran % (Auto) 1.500 H, Neut % (Auto) 80.8 H, Lymph % (Auto) 12.3 L, [place] % (Auto) 5.1, Eos % (Auto) 0.1, Baso % (Auto) 0.2, Absolute Neuts (auto) 9.7 H, Absolute Lymphs (auto) 1.48, Nucleated RBC % 0, Sodium 133 L, Potassium 4.3, Chloride 92 L, Carbon Dioxide 23.8, Anion Gap 18, BUN 61 H, Creatinine 8.98 H*, Estim Creat Clear Calc 9.89 L*, Est GFR (MDRD) Non-Af 6 L, BUN/Creatinine Ratio 6.8 L, Glucose 118 H, Calcium 8.2 08/23/25 06:18: POC Glucose 119 H Physical Exam Const alert and no apparent distress HEENT head/scalp atraumatic and moist oral mucous membranes Resp normal respiratory effort, no retractions, no use of accessory muscles and clear to auscultation bilaterally Cardio regular rate, regular rhythm, S1 normal heart sound and S2 normal heart sound GI normal to inspection, nondistended, normoactive bowel sounds, soft to palpation, non-tender and non-distended Neuro Sensorium / Orientation: awake and alert Assessment & Plan Assessment/Plan (1) Pyelonephritis: PLAN: Plan UTI with pyelonephritis Admit to [facility]. Was seen in the ED on for complaints of hematuria and burning with urination. Urinalysis showed evidence of UTI and CT of the abdomen and pelvis also showed some perinephric stranding. He was discharged home on p.o. Keflex but felt worse when he called home and so came back. WBC is up to 11.9. Will repeat CT of the abdomen and pelvis as he had 1 just the day before admission. Will start on IV ceftriaxone. Get blood and urine cultures. UCx positive for presumptive E. coli chavarria sensitive. ESRD On hemodialysis Tuesdays and Saturdays. Last had dialysis on Monday, when his dialysis day was moved up due to the holiday consult nephrology On calcitriol Received HD today. Patient to follow up with Dr. Fernandez for bleeding after removal of dialysis needles. Chronic conditions: Type 1 diabetes mellitus: On Lantus 25 units nightly. Insulin sliding scale. Accu-Cheks ACHS. Nonalcoholic fatty liver disease: Hypertension: on losartan and hydralazine History of hepatitis C: stable Depression: On aripiprazole and sertraline Hyperlipidemia: On gemfibrozil and statin DVT prophylaxis: lovenox, renally dosed Code status:full code Charges/Coding Visit Charges Inpatient E&M: 48391 Subs Hosp L2
[2025-08-23] MEDS: 0.9% Saline Lock 10 ML Syringe IV ×3 (12:27→21:36)
[2025-08-23] MEDS: Cholecalciferol (VIT D3) 25 MCG TABLET (1,000 UNITS) PO (12:28)
[2025-08-23] MEDS: Ergocalciferol 1.25 MG (50, 000 UNIT) Capsule PO (12:28)
[2025-08-23] MEDS: Aspirin E.C. 81 MG Tablet PO (12:28)
--- NOTE | 2025-08-23 18:36 | CASEMGMT ---
KLEBER YARBROUGH Assessment: Face to Face with pt for initial transition planning/care coordination assessment. RN LINNEA introduced self and role at [facility], pt voices understanding and consents to assessment. Pt is A&O x4 and answers all questions appropriately at this time. Care providers, pharmacy, and demographics verified/updated. Strata: 3 Admitting Dx: Acute pylonephritis, UTI PCP: Radha Specialists: Nephrology, Warren; Kranthi, Podiatry Preferred Pharmacy: [facility] Insurance: [employer] Prescription Benefit: yes LNOK: MomElizabeth Living Arrangements: Pt lives with mom in 1 level home with 2 steps to enter. ADLs: Pt states I at baseline. Transportation: Pt drives self and denies concerns with transportation. DME: Glucometer and supplies. HD at [facility]. HHC/SNF: Previously had HHC, does not recall agency Pt states no concerns with going home at time of dc. Pt states no further concerns/needs. CM to follow. Advised pt to ask CM if any further question/concerns/needs arise, voices understanding. Pt Goal: Home Plan: Home, follow for safe DC. Loraine SHAHID CM
[2025-08-23] MEDS: Insulin Glargine-YFGN 100 UNIT/ML Pen 25 UNIT SC (21:38)
[2025-08-24] VITALS (10 sets, daily range): BP systolic 144–182; BP diastolic 69–82; PULSE 60–89; RESP 17–18; TEMP 36.7–37.2; O2SAT 93–99; BMI 28.6
[2025-08-24] MEDS: Heparin Injection (Vial) 5,000 UNIT/ML VIAL 5000 UNIT SC ×3 (06:28→21:30)
[2025-08-24] MEDS: Aspirin E.C. 81 MG Tablet PO (07:50)
--- NOTE | 2025-08-24 08:00 | PN.HOSP_ITS ---
Reason for Visit Chief Complaint: urinary frequency, fever Subjective Subjective Feeling better, but still having back and abdominal pain. Objective Data Objective Data Vital Signs: Vital Signs Temp Pulse Resp BP Pulse Ox O2 Del Method 36.8 C 89 18 145/73 H 93 Room Air 08/24/25 06:24 08/24/25 07:22 08/24/25 06:24 08/24/25 06:30 08/24/25 07:22 08/24/25 07:22 Oxygen Delivery Method Room Air Weight: 85.7 kg Body Mass Index (BMI) 28.6 Intake & Output: Intake and Output for Last 24 Hours 08/22/25 08/23/25 08/24/25 23:59 23:59 23:59 Intake Total 650 / 650 250 / 250 Output Total 690 / 690 Balance 650 / 650 -440 / -440 Lab / Micro Data 08/24/25 08:40 08/24/25 08:40 Labs: Laboratory Results - last 24 hr 08/23/25 12:37: POC Glucose 83 08/23/25 15:53: POC Glucose 149 H 08/23/25 21:36: POC Glucose 237 H 08/24/25 06:27: POC Glucose 147 H Physical Exam Narrative positive R CVA tenderness. Const alert and no apparent distress HEENT head/scalp atraumatic and moist oral mucous membranes Resp normal respiratory effort, no retractions, no use of accessory muscles and clear to auscultation bilaterally Cardio regular rate, regular rhythm, S1 normal heart sound and S2 normal heart sound GI normal to inspection, nondistended, normoactive bowel sounds and soft to palpation Assessment & Plan Assessment/Plan (1) Pyelonephritis: PLAN: Plan UTI with pyelonephritis * Admit to [facility]. * Was seen in the ED on for complaints of hematuria and burning with urination. Urinalysis showed evidence of UTI and CT of the abdomen and pelvis also showed some perinephric stranding. He was discharged home on p.o. Keflex but felt worse when he called home and so came back. * WBC is up to 11.9. Will repeat CT of the abdomen and pelvis as he had 1 just the day before admission. * Will start on IV ceftriaxone. * UCx positive for presumptive E. coli chavarria sensitive. * Pt overall feeling better, but will continue with IV abx for 1 more day and hopefully he could be discharged on the . ESRD * On hemodialysis Tuesdays and Saturdays. Had HD on 08/23 * consult nephrology * On calcitriol * Received HD today. * Patient to follow up with Dr. Fernandez for bleeding after removal of dialysis needles. * Plan for dialysis on the (due to the holiday) Chronic conditions: * Type 1 diabetes mellitus: On Lantus 25 units nightly. Insulin sliding scale. Accu-Cheks ACHS. * Nonalcoholic fatty liver disease: Hypertension: on losartan and hydralazine * History of hepatitis C: stable * Depression: On aripiprazole and sertraline * Hyperlipidemia: On gemfibrozil and statin DVT prophylaxis: lovenox, renally dosed Code status:full code Disposition: to home hopefully after HD on 08/25 Charges/Coding Visit Charges Inpatient E&M: 83092 Subs Hosp L2
[2025-08-24 08:47] LABS: Hematocrit 21.7 % (40-54); Hemoglobin 7.3 g/dL (13.0-16.5); Immature Granulocytes Count 0.080 X10^3/uL (0.0-0.0); Mean Corp Hgb Conc 33.6 g/dL (32-36); Mean Corpuscular Volume 100.9 fL (80-94); Mean Platelet Vol. 10.9 fl (6.2-12.0); NRBC Flagged by Analyzer 0 % (0-5); Platelet Count 101 K/mm3 (150-450); RBC Distribution Width CV 16.0 % (11.6-14.6); RBC Distribution Width SD 60.4 fl (35.1-43.9); Red Blood Count 2.15 M/mm3 (4.6-6.2); White Blood Count 4.9 K/mm3 (4.4-11.0)
[2025-08-24 09:25] LABS: Anion Gap 14 (7-18); BUN 46 mg/dL (4-19); BUN/Creat Ratio 6.2 RATIO (10-20); Calcium,Total 8.0 mg/dL (7.6-11.0); Carbon Dioxide 23.9 mmol/L (20.0-29.0); Chloride 96 mmol/L (96-106); Estimated Creatinine Clearance 11.81 ml/min (50-250); Glucose 142 mg/dL (70-99); Potassium 3.7 mmol/L (3.5-5.1)
[2025-08-24] MEDS: SUCROFERRIC OXYHYDROXIDE 500 MG TAB.CHEW PO (16:20)
[2025-08-24] MEDS: 0.9% Saline Lock 10 ML Syringe IV (21:09)
[2025-08-24] MEDS: Insulin Glargine-YFGN 100 UNIT/ML Pen 25 UNIT SC (21:30)
[2025-08-25] VITALS (20 sets, daily range): BP systolic 166–198; BP diastolic 68–87; PULSE 55–70; RESP 14–18; TEMP 36.4–36.9; O2SAT 97–100; BMI 30.4; BMI 29.7
[2025-08-25] MEDS: 0.9% Saline Lock 10 ML Syringe IV ×3 (03:09→22:49)
[2025-08-25] MEDS: Heparin Injection (Vial) 5,000 UNIT/ML VIAL 5000 UNIT SC ×2 (06:26→14:10)
--- NOTE | 2025-08-25 08:41 | PN.HOSP_ITS ---
Subjective Subjective No issues overnight, blood pressures are little bit elevated Objective Data Objective Data Vital Signs: Vital Signs Temp Pulse Resp BP Pulse Ox O2 Del Method 97.6 F L 60 14 186/74 H 100 Room Air 08/25/25 08:25 08/25/25 08:30 08/25/25 08:30 08/25/25 08:30 08/25/25 08:30 08/25/25 08:30 Oxygen Delivery Method Room Air Weight: 200 lb 13.458 oz Body Mass Index (BMI) 30.4 Intake & Output: Intake and Output for Last 24 Hours 08/24/25 08/25/25 08/26/25 03:59 03:59 03:59 Intake Total 250 / 250 350 / 350 200 / 200 Output Total 690 / 690 Balance -440 / -440 350 / 350 200 / 200 Lab / Micro Data 08/24/25 08:40 08/24/25 08:40 Labs: Laboratory Results - last 24 hr 08/24/25 08:40: WBC 4.9, RBC 2.15 L, Hgb 7.3 L, Hct 21.7 L, MCV 100.9 H, MCH 34.0 H, MCHC 33.6, RDW Std Deviation 60.4 H, RDW Coeff of Ever 16.0 H, Plt Count 101 L, MPV 10.9, Immature Gran % (Auto) 1.600 H, Neut % (Auto) 75.0 H, Lymph % (Auto) 15.8 L, [place] % (Auto) 6.8, Eos % (Auto) 0.4, Baso % (Auto) 0.4, Absolute Neuts (auto) 3.7, Absolute Lymphs (auto) 0.77 L, Nucleated RBC % 0, Sodium 133 L , Potassium 3.7, Chloride 96, Carbon Dioxide 23.9, Anion Gap 14, BUN 46 H, C reatinine 7.44 H*, Estim Creat Clear Calc 11.81 L, Est GFR (MDRD) Non-Af 8 L, B UN/Creatinine Ratio 6.2 L, Glucose 142 H, Calcium 8.0 08/24/25 10:58: POC Glucose 140 H 08/24/25 16:05: POC Glucose 173 H 08/24/25 21:28: POC Glucose 247 H 08/25/25 06:24: POC Glucose 198 H
--- NOTE | 2025-08-25 09:54 | PCM.CONS.R ---
Assessment & Plan Assessment/Plan (1) ESRD (end stage renal disease) on dialysis: PLAN: dialysis today, holiday schedule, next dialysis Wed then back to TTS schedule (2) Pyelonephritis: PLAN: iv antibx Ecoli UTI (3) Anemia in chronic kidney disease (CKD): PLAN: check stool for occult blood. 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 Complained of blood in urine [place] day with chills, dysuria. Last dialysis was 08/20 as outpt, inpatient dialysis arranged for 08/23 and currently receiving dialysis now. BP elevated, will challenge fluid removal. Still complains of chills and dysuria despite antibx. Hgb low at 7.3g. He is on transplant list. Receives high dose AMILCAR therapy on dilaysis. [facility], [facility] Medical History (Updated 08/22/25 @ 15:22 by Ryanne Enamorado) Dialysis patient Kidney disease Vascular dialysis catheter in place History of hemodialysis History of renal dialysis Hemodialysis patient Anemia due to chronic blood loss Positive fecal occult blood test Cancer Insulin dependent diabetes mellitus History of renal disease Low iron Easy bruising Wears glasses Arthritis Fatty liver Restless legs Former smoker Leg cramps History of edema History of stress test History of echocardiogram Syncope Hx of vertigo Therapeutic drug monitoring History of colon cancer Trigeminal nerve disorder portacath placement GERD (gastroesophageal reflux disease) High cholesterol Hepatitis C Depressive disorder Obesity Seizure disorder Asthma History of alcohol abuse Pancreatitis Sezary disease Home Medications ?Medication ?Instructions ?Recorded ?Last Taken ?Type cholecalciferol (vitamin D3) 25 1,000 unit PO TUTHSA supplement 10/10/13 08/21/25 History mcg (1,000 unit) capsule sertraline 100 mg tablet 100 mg PO QHS depression 07/18/14 08/21/25 History multivitamin with folic acid 400 1 tab PO DAILY supplement 10/21/14 08/21/25 History mcg tablet rosuvastatin 40 mg tablet 40 mg PO QHS cholesterol 11/24/16 08/21/25 History fish oil-dha-epa 1,200 mg-144 1 each PO DAILY supplement 11/14/20 08/21/25 History mg-216 mg capsule albuterol sulfate 90 mcg/actuation 1 - 2 puff inhalation Q4H PRN PRN 10/16/23 Unknown Rx aerosol inhaler (Ventolin HFA) Wheezing #1 inh gemfibrozil 600 mg tablet 600 mg PO BID pancreatitis 12/08/23 08/21/25 History prevention nadolol 40 mg tablet 40 mg PO BID heart 12/18/23 08/20/25 History calcitriol 0.5 mcg capsule 0.5 mcg PO DAILY bone health 05/30/24 08/21/25 History clonidine HCl 0.1 mg tablet 0.1 mg PO TID hypertension 06/12/24 07/23/24 History ergocalciferol (vitamin D2) 1,250 1,250 mcg PO MOWEFR VITAMIN 07/03/24 08/21/25 History mcg (50,000 unit) capsule aripiprazole 2 mg tablet 2 mg PO QHS mental health 07/04/24 08/21/25 History losartan 50 mg tablet 50 mg PO DAILY blood pressure 30 07/10/24 08/20/25 Rx days #30 tabs blood sugar diagnostic (OneTouch #100 ea 10/31/24 Unknown Rx Verio test strips) blood-glucose meter (OneTouch #1 ea 10/31/24 Unknown Rx Verio Reflect kit) pantoprazole 20 mg tablet,delayed 40 mg (2 x 20 mg) PO DAILY reflux 11/19/24 08/21/25 Rx release #90 TABLETS insulin glargine 100 unit/mL (3 25 unit (0.25 mL) subcut ONCE 12/18/24 Unknown Rx mL) subcutaneous pen (Lantus diabetes #22.5 mL Solostar U-100 Insulin) pen needle, diabetic 31 gauge x #100 ea 12/18/24 Unknown Rx 01/10 (Comfort EZ Pen [place]) sucroferric oxyhydroxide 500 mg 500 mg PO QAC for CKD 05/07/25 08/21/25 History chewable tablet (Velphoro) hydralazine 50 mg tablet 50 mg PO TID blood pressure 06/04/25 08/20/25 History aspirin 81 mg tablet,delayed 81 mg PO QDAY 06/18/25 08/21/25 History release (Adult Aspirin Regimen) carbamazepine 200 mg tablet 600 mg (3 x 200 mg) PO BID 06/30/25 08/21/25 Rx seizures #540 tabs gabapentin 300 mg capsule 300 mg PO BID nerve pain #180 caps 06/30/25 Unknown Rx trazodone 50 mg tablet 50 mg PO QHS PRN insomnia #90 tabs 06/30/25 08/21/25 Rx cholestyramine 4 gram oral powder 4 g PO QHS MD ordered #231 GMS 07/29/25 Unknown Rx (Cholestyramine Light) insulin lispro 100 unit/mL 18 unit (0.18 mL) subcut TID #60 mL 08/15/25 Unknown Rx subcutaneous pen (Admelog SoloStar U-100 Insulin lispro) Allergy/AdvReac Type Severity Reaction Status Date / Time doxazosin (From Cardura) Allergy Severe Bleeding Verified 08/22/25 08:45 erythromycin base Allergy Severe Hives Verified 08/22/25 08:45 loratadine (From Claritin) Allergy Severe Rash Verified 08/22/25 08:45 oxycodone AdvReac Severe Other Verified 08/22/25 19:36 amlodipine AdvReac nausea/diar Verified 08/22/25 08:45 darryl/dizzin ess Family History Grandmother Cervical cancer Diabetes Hypertension Trigeminal neuralgia Mother Uterine cancer Arthritis Diabetes Hypertension Grandfather Heart disease Arthritis Diabetes Hypertension Unknown Diabetes Arthritis Father Arthritis Diabetes Hypertension Sister Diabetes Hypertension Uncle CVA (cerebral vascular accident) Aunt Cerebral aneurysm Surgical History Hx of esophagogastroduodenoscopy Hx of appendectomy H/O left hemicolectomy Social History Smoking Status: Former smoker Tobacco: How many years used: 20 how long ago did patient quit smoking: quit 2003 second hand exposure: No alcohol intake: former details: quit 2003 substance use type: former substance user Date of last use: Used Marijuana since he was a teenager Physical Exam Const alert and oriented x3 Cardio regular rate Cardio Narrative: murmur RUSB GI non-tender and non-distended Auscultation: normoactive bowel sounds Palpation: soft Neuro CN's II-XII intact bilaterally Psych cooperative Lab / Micro Data 08/24/25 08:40 08/24/25 08:40 Labs: Laboratory Results - last 24 hr 08/24/25 10:58: POC Glucose 140 H 08/24/25 16:05: POC Glucose 173 H 08/24/25 21:28: POC Glucose 247 H 08/25/25 06:24: POC Glucose 198 H
[2025-08-25] MEDS: Epoetin Alfa epbx 10,000 UNIT/ML 10000 UNIT IV (11:20)
[2025-08-25] MEDS: PureFlow B 3K Dialysis Soln 1 BAG 6 BAG PF (11:21)
[2025-08-25] MEDS: 0.9% Normal Saline 1,000 ML IV.SOLN. 1000 ML OPERA.SITE (11:21)
[2025-08-25] MEDS: Aspirin E.C. 81 MG Tablet PO (13:23)
[2025-08-25] MEDS: SUCROFERRIC OXYHYDROXIDE 500 MG TAB.CHEW PO ×2 (13:23→16:18)
--- NOTE | 2025-08-25 15:06 | PCM.PN.HOSP ---
Subjective Subjective No issues overnight, undergoing dialysis today. Continues to have some burning with urination Objective Data Objective Data Vital Signs: Vital Signs Temp Pulse Resp BP Pulse Ox O2 Del Method 98 F 60 16 185/80 H 100 Room Air 08/25/25 12:25 08/25/25 13:24 08/25/25 12:25 08/25/25 12:25 08/25/25 12:25 08/25/25 12:25 Oxygen Delivery Method Room Air Weight: 196 lb 3.382 oz Body Mass Index (BMI) 29.7 Intake & Output: Intake and Output for Last 24 Hours 08/24/25 08/25/25 08/26/25 03:59 03:59 03:59 Intake Total 250 / 250 350 / 350 250 / 250 Output Total 690 / 690 2110 / 2110 Balance -440 / -440 350 / 350 -1860 / -1860 Lab / Micro Data 08/24/25 08:40 08/24/25 08:40 Labs: Laboratory Results - last 24 hr 08/24/25 16:05: POC Glucose 173 H 08/24/25 21:28: POC Glucose 247 H 08/25/25 06:24: POC Glucose 198 H 08/25/25 11:29: POC Glucose 124 H Physical Exam Narrative General: Alert, Oriented x3, Cooperative, No apparent distress HEENT: Atraumatic, PERRLA, EOMI, Normocephalic Oral: Moist Mucosa Neck: Supple, No JVD Lungs: Diminished, Normal air movement, No rhonchi, No wheeze, No rales Cardiovascular: Regular rate, Regular Rhythm, Normal S1, Normal S2, No murmurs Abdomen: Soft, Non Tender, Non-Distended, No Hepato-splenomegaly Extremities: No edema, Capillary Refill Less than 3 Seconds Skin: No rashes, No breakdown Musculoskeletal: No Tenderness to Palpation of Joints or Extremities Neurological: No focal neurological deficits, moves all extremities Psych/Mental Status: Normal Affect, Appropriate Assessment & Plan Assessment/Plan (1) Pyelonephritis: PLAN: Plan 1. UTI with pyelonephritis in the setting of end-stage renal disease on dialysis ? UTI is due to a pansensitive E. coli continue with Rocephin ? Receiving dialysis today, appreciate nephrology's assistance ? CT scan of the abdomen and pelvis on 08/21/2025 with perinephric fat stranding as well as bladder wall thickening ? Leukocytosis resolved 2. Anemia of chronic disease ? Hemoglobin seven 7.3, nephrology ordered for fecal occult ? Will recheck hemoglobin in the morning 3. Essential HTN/HLD ? Continue with his home blood pressure medications ? he has been hypertensive however will evaluate post dialysis to see if any medication adjustments are necessary ? Continue with gemfibrozil and Crestor 4. DM1 ? Continue with insulin ? Accu-Cheks ? Will monitor make adjustments as necessary 5. MALD with a history of hepatitis C ? Continue outpatient monitoring and evaluation and treatment 6. GERD ? Stable ? Continue PPI 7. Anxiety/depression ? Stable ? Continue Zoloft DVT: Heparin Charges/Coding Visit Charges Inpatient E&M: 15398 Subs Hosp L2
--- NOTE | 2025-08-25 20:45 | PCM.HOSP.N ---
Hospitalist Note Notified of positive stool occult blood, last hgb 7.3 with h/o chronic anemia. Order placed to hold scheduled heparin SC TID x48h, place SCDs, T+C and hold 2units PRBCs.
[2025-08-25] MEDS: Insulin Glargine-YFGN 100 UNIT/ML Pen 25 UNIT SC (22:41)
[2025-08-26 00:11] VITALS: BP 151/66; PULSE 61
[2025-08-26 03:11] VITALS: BP 172/74; PULSE 60; RESP 16; TEMP 37.1; O2SAT 100
[2025-08-26 03:29] VITALS: BP 172/74; PULSE 60
[2025-08-26] MEDS: 0.9% Saline Lock 10 ML Syringe IV (03:29)
[2025-08-26 04:28] VITALS: BMI 31.1
[2025-08-26 04:43] LABS: Hematocrit 25.2 % (40-54); Hemoglobin 8.6 g/dL (13.0-16.5); Immature Granulocytes Count 0.080 X10^3/uL (0.0-0.0); Mean Corp Hgb Conc 34.1 g/dL (32-36); Mean Corpuscular Volume 100.4 fL (80-94); Mean Platelet Vol. 10.4 fl (6.2-12.0); NRBC Flagged by Analyzer 0 % (0-5); Platelet Count 180 K/mm3 (150-450); RBC Distribution Width CV 15.7 % (11.6-14.6); RBC Distribution Width SD 58.3 fl (35.1-43.9); Red Blood Count 2.51 M/mm3 (4.6-6.2); White Blood Count 4.3 K/mm3 (4.4-11.0)
[2025-08-26 05:04] LABS: Anion Gap 12 (7-18); BUN 42 mg/dL (4-19); BUN/Creat Ratio 6.2 RATIO (10-20); Calcium,Total 9.0 mg/dL (7.6-11.0); Carbon Dioxide 24.3 mmol/L (20.0-29.0); Chloride 97 mmol/L (96-106); Estimated Creatinine Clearance 13.60 ml/min (50-250); Glucose 180 mg/dL (70-99); Potassium 4.1 mmol/L (3.5-5.1)
[2025-08-26 05:18] VITALS: BP 157/80; PULSE 60
[2025-08-26] MEDS: SUCROFERRIC OXYHYDROXIDE 500 MG TAB.CHEW PO ×2 (06:28→11:46)
[2025-08-26] MEDS: Aspirin E.C. 81 MG Tablet PO (08:19)
[2025-08-26 08:24] VITALS: BP 171/64; PULSE 55; RESP 15; TEMP 36.4; O2SAT 100
--- NOTE | 2025-08-26 09:36 | DCINST_ITS ---
Discharge Instructions DC O2, CPAP, BIPAP needs Home O2 Discharge instructions: No Dressing / Incision Discharge Activity: Return to Normal Activity Dressing / Incision Call your doctor if you observe: Fever of 101 or Higher, Shortness of breath, Dizziness, Fainting spells, Swelling in the ankles, Chest pain and Increased palpitations (irregular heartbeat) Follow Up Care Test Results: Test results from this visit will be discussed in further detail at your follow- up appointment, if applicable. Discharge Plan Admission Admit Date/Time: 08/22/25 11:43 Attending Provider: Fabrizoi Tripp Primary Care Provider: Kimberlyn Garcia Consulting Providers: Radha Kelley; Tena Jean Baptiste; Kirk Sawyer Discharge Orders/Prescriptions Prescriptions: New ciprofloxacin HCl 500 mg tablet 500 mg PO DAILY 7 Days Qty: 7 0RF Rx Instructions: On dialysis days, take after treatment Continued clonidine HCl 0.1 mg tablet 0.1 mg PO TID (DME) pen needle, diabetic [Comfort EZ Pen [place]] 31 gauge x 5/16 needle See Rx Instructions .Route Qty: 100 5RF Rx Instructions: 4x/day insulin glargine [Lantus Solostar U-100 Insulin] 100 unit/mL (3 mL) insulin pen 25 unit subcut ONCE Qty: 22.5 1RF Velphoro 500 mg tablet,chewable 500 mg PO QAC aspirin [Adult Aspirin Regimen] 81 mg tablet,delayed release (DR/EC) 81 mg PO QDAY carbamazepine 200 mg tablet 600 mg PO BID Qty: 540 2RF gabapentin 300 mg capsule 300 mg PO BID Qty: 180 2RF Patient Comments: pt reports he does not think it helps trazodone 50 mg tablet 50 mg PO QHS PRN (Reason: insomnia) Qty: 90 2RF cholecalciferol (vitamin D3) 1,000 UNIT capsule 1,000 unit PO TUTHSA Patient Comments: VITAMIN sertraline 100 MG tablet 100 mg PO QHS multivitamin with folic acid 1 TABLET tablet 1 tab PO DAILY calcitriol 0.5 mcg capsule 0.5 mcg PO DAILY fish oil-dha-epa 1 EACH capsule 1 each PO DAILY gemfibrozil 600 mg tablet 600 mg PO BID ergocalciferol (vitamin D2) 1,250 mcg (50,000 unit) capsule 1,250 mcg PO MOWEFR Patient Comments: takes on Monday, , Monday aripiprazole 2 mg Tablet 2 mg PO QHS losartan 50 mg Tablet 50 mg PO DAILY 30 Days Qty: 30 0RF albuterol sulfate [Ventolin HFA] 90 mcg/actuation HFA aerosol inhaler 1 - 2 puff inhalation Q4H PRN PRN (Reason: Wheezing) Qty: 1 0RF nadolol 40 mg tablet 40 mg PO BID Patient Comments: take with 20mg tablet. total dose = 60mg hydralazine 50 mg tablet 50 mg PO TID rosuvastatin 40 MG tablet 40 mg PO QHS (DME) OneTouch Verio test strips Strip See Rx Instructions .Route Qty: 100 5RF Rx Instructions: TID (DME) blood-glucose meter [OneTouch Verio Reflect] Kit See Rx Instructions .Route Qty: 1 0RF Rx Instructions: As directed pantoprazole 20 mg tablet,delayed release (DR/EC) 40 mg PO DAILY Qty: 90 3RF Cholestyramine Light 4 gram powder 4 g PO QHS Qty: 231 2RF insulin lispro [Admelog SoloStar U-100 Insulin] 100 unit/mL insulin pen 18 unit subcut TID Qty: 60 1RF Referrals / Follow Up: Kimberlyn Garcia MD [Primary Care Provider, Family Practice] - Within 1 Week Disposition Disposition (needs filled in before D/C Order can be placed): Home, Self Care
[2025-08-26] MEDS: Ergocalciferol 1.25 MG (50, 000 UNIT) Capsule PO (11:02)
[2025-08-26] MEDS: Cholecalciferol (VIT D3) 25 MCG TABLET (1,000 UNITS) PO (11:02)
--- NOTE | 2025-08-26 11:20 | CASEMGMT ---
KLEBER CM into pt room, pt lying in bed in no distress. Pt denies any homegoing needs. Pt states he does not know when his next dialysis is. He thinks it is on Monday. Pt had dialysis yesterday. TC to [facility], spoke with Felipa, she states pt was supposed to have come in tomorrow but reported an appt with Dr. Fernandez. Pt states the appt was cancelled. She states pt can come in at regular time tomorrow. Pt is agreeable to this and denies any further needs.
[2025-08-26 12:37] VITALS: BP 175/82; PULSE 64; RESP 15; TEMP 36.9; O2SAT 100
--- NOTE | 2025-08-26 15:24 | PCM.DC.SUM ---
Providers Date of Admission: 08/22/25 Primary Care Physician: Kimberlyn Garcia MD Consultations 08/22/25 14:03 Consult: Nephrology Routine Consulting Provider: Radha Kelley Reason for Consult: ESRD, on HD EMERGENT Consult: No MD Notified: Yes Date Notified: 08/22/25 Time Notified: 11:47 Method of Notification: Text Reason For Visit: ACUTE PYELONEPHRITIS, UTI Diagnosis Discharge Diagnosis (1) Pyelonephritis: Status: Acute Code(s): N12 - Tubulo-interstitial nephritis, not specified as acute or chronic Medications at Discharge Home Medications cholecalciferol (vitamin D3) 25 mcg (1,000 unit) capsule 1,000 unit PO TUTHSA supplement 10/10/13 sertraline 100 mg tablet 100 mg PO QHS depression 07/18/14 multivitamin with folic acid 400 mcg tablet 1 tab PO DAILY supplement 10/21/14 rosuvastatin 40 mg tablet 40 mg PO QHS cholesterol 11/24/16 fish oil-dha-epa 1,200 mg-144 mg-216 mg capsule 1 each PO DAILY supplement 11/14/20 albuterol sulfate 90 mcg/actuation aerosol inhaler (Ventolin HFA) 1 - 2 puff inhalation Q4H PRN PRN Wheezing #1 inh 10/16/23 gemfibrozil 600 mg tablet 600 mg PO BID pancreatitis prevention 12/08/23 nadolol 40 mg tablet 40 mg PO BID heart 12/18/23 calcitriol 0.5 mcg capsule 0.5 mcg PO DAILY bone health 05/30/24 clonidine HCl 0.1 mg tablet 0.1 mg PO TID hypertension 06/12/24 ergocalciferol (vitamin D2) 1,250 mcg (50,000 unit) capsule 1,250 mcg PO MOWEFR VITAMIN 07/03/24 aripiprazole 2 mg tablet 2 mg PO QHS mental health 07/04/24 losartan 50 mg tablet 50 mg PO DAILY blood pressure 30 days #30 tabs 07/10/24 blood sugar diagnostic (OneTouch Verio test strips) #100 ea 10/31/24 blood-glucose meter (OneTouch Verio Reflect kit) #1 ea 10/31/24 pantoprazole 20 mg tablet,delayed release 40 mg (2 x 20 mg) PO DAILY reflux #90 TABLETS 11/19/24 insulin glargine 100 unit/mL (3 mL) subcutaneous pen (Lantus Solostar U-100 Insulin) 25 unit (0.25 mL) subcut ONCE diabetes #22.5 mL 12/18/24 pen needle, diabetic 31 gauge x 5/16 (Comfort EZ Pen [place]) #100 ea 12/18/24 sucroferric oxyhydroxide 500 mg chewable tablet (Velphoro) 500 mg PO QAC for CKD 05/07/25 hydralazine 50 mg tablet 50 mg PO TID blood pressure 06/04/25 aspirin 81 mg tablet,delayed release (Adult Aspirin Regimen) 81 mg PO QDAY 06/18/25 carbamazepine 200 mg tablet 600 mg (3 x 200 mg) PO BID seizures #540 tabs 06/30/25 gabapentin 300 mg capsule 300 mg PO BID nerve pain #180 caps 06/30/25 trazodone 50 mg tablet 50 mg PO QHS PRN insomnia #90 tabs 06/30/25 cholestyramine 4 gram oral powder (Cholestyramine Light) 4 g PO QHS MD ordered #231 GMS 07/29/25 insulin lispro 100 unit/mL subcutaneous pen (Admelog SoloStar U-100 Insulin lispro) 18 unit (0.18 mL) subcut TID #60 mL 08/15/25 ciprofloxacin HCl 500 mg tablet 500 mg PO DAILY 7 days #7 tabs 08/26/25 Hospital Course Operations None Procedures Dialysis Summary of Care Provided Minutes Spent on Discharge: 37 Hospital Course: Per HPI: REGINALDO HUFFMAN, is a 54 M with a PMH as outlined who was admitted via [facility] ED on 08.22.2025 with a complaint of fever and urinary symptoms. He was seen at the ED the day before this admission with blood in ihis urine. He had also experienced chills whilst at dialysis 2 dfays prior to this admission. He was diagnosed with UTI in the ED the day before admission and given a dose of antibiotics. He was discharged home with a course of oral antibiotics but said he felt worse at home so he came in to the ED. He admitted to nausea and right flank pain and also admitted to urinary frequency. He admitted to some hematuria. Review of systems is otherwise negative. Vitals in the ED were BP of 180/69, OK of 84, RR of 16 and temp of 98F as well as saturation of 98% on room air. CBC showed Hb of 8.9, wbc of 11.9 and platelets of 129. INR was 1.4. Chemistry shwoed sodium of 134, potassium of 4.2, bicarb of 25.9. Urinalysis showed 5-10 WBC. High-power field with no bacteria or nitrites.He is on hemodialysis which he usually goes for every Monday, and Monday. He did have CT of the abdomen and pelvis done when he presented on 08/21/2025 which showed bladder wall thickening which may represent cystitis and perinephric fat stranding without hydronephrosis or nephrolithiasis consistent with UTI as well as splenomegaly and neck and gastrosplenic varices concerning for portal hypertension and liver steatosis with colonic diverticulosis without evidence of acute diverticulitis. He is being admitted to be managed for UTI with probable pyelonephritis with failed outpatient treatment. Hospital Course: 1. E. coli UTI with pyelonephritis in the setting of end-stage renal disease on dialysis with anemia of chronic disease?54-year-old male presented to the hospital with fevers and urinary symptoms. He still has a little bit of burning on urination but not as severe as it was. He is able to urinate on his own and urine cultures demonstrated E. coli that was pansensitive. He did receive 4 days of Rocephin and will continue with 7 days of daily Cipro 500 mg p.o. to be taken after dialysis on his dialysis days. This is due to the fact that Cipro has better urinary penetrance than cefdinir. He did receive dialysis yesterday and is feeling better, his blood pressures will be more controlled today. His anemia is at baseline and on 08/24/2025 it was 7.3 and on the day of discharge it was 8.6. He did have a positive fecal occult however he does have multiple abdominal pathologies for this and since his hemoglobin is stable I discussed with him the possibility for discharge and he expressed understanding of the risk benefits of going home and would like to go home today. He does deny any dark stools at baseline. I recommend outpatient follow-up with his PCP for further management. 2. Essential hypertension, hyperlipidemia, type 1 diabetes, GERD, anxiety, depression, mauled with a history of hepatitis C are all chronic medical conditions which complicate his care. His home medications were continued where appropriate. Physical Exam Narrative General: Alert, Oriented x3, Cooperative, No apparent distress HEENT: Atraumatic, PERRLA, EOMI, Normocephalic Oral: Moist Mucosa Neck: Supple, No JVD Lungs: Diminished, Normal air movement, No rhonchi, No wheeze, No rales Cardiovascular: Regular rate, Regular Rhythm, Normal S1, Normal S2, No murmurs Abdomen: Soft, Non Tender, Non-Distended, No Hepato-splenomegaly Extremities: No edema, Capillary Refill Less than 3 Seconds Skin: No rashes, No breakdown Musculoskeletal: No Tenderness to Palpation of Joints or Extremities Neurological: No focal neurological deficits, moves all extremities Psych/Mental Status: Normal Affect, Appropriate Weight / BMI Weight Weight: 205 lb 11.06 oz Body Mass Index (BMI) 31.1 ABG / Lab / Microbiology Data 08/26/25 04:24 08/26/25 04:24 Laboratory: Laboratory Results - last 24 hr 08/25/25 16:16: POC Glucose 175 H 08/25/25 22:38: POC Glucose 264 H 08/26/25 04:24: WBC 4.3 L, RBC 2.51 L, Hgb 8.6 L, Hct 25.2 L, MCV 100.4 H, MCH 34.3 H, MCHC 34.1, RDW Std Deviation 58.3 H, RDW Coeff of Ever 15.7 H, Plt Count 180, MPV 10.4, Immature Gran % (Auto) 1.900 H, Neut % (Auto) 58.8, Lymph % (Auto) 25.9, [place] % (Auto) 11.1 H, Eos % (Auto) 1.6, Baso % (Auto) 0.7, Absolute Neuts (auto) 2.5, Absolute Lymphs (auto) 1.12, Nucleated RBC % 0, Sodium 133 L, Potassium 4.1, Chloride 97, Carbon Dioxide 24.3, Anion Gap 12, BUN 42 H, Creatinine 6.72 H, Estim Creat Clear Calc 13.60 L, Est GFR (MDRD) Non-Af 9 L, BUN/Creatinine Ratio 6.2 L, Glucose 180 H, Calcium 9.0, Blood Type O POSITIVE, Antibody Screen NEGATIVE, Crossmatch See Detail 08/26/25 06:27: POC Glucose 134 H 08/26/25 11:44: POC Glucose 209 H Microbiology: Microbiology 08/25/25 16:20 Stool Stool Occult Blood (YENNI) - Final Occult Blood Positive D/C Instructions Call your doctor if you observe: Fever of 101 or Higher, Shortness of breath, Dizziness, Fainting spells, Swelling in the ankles, Chest pain and Increased palpitations (irregular heartbeat) DC O2, CPAP, BIPAP Needs Home O2 Discharge instructions: No Meaningful Use Info Meaningful Use Meaningful Use Diagnoses (Choose all that apply): None applicable Discharge Plan Admission Admit Date/Time: 08/22/25 11:43 Attending Provider: Fabrizio Tripp Primary Care Provider: Kimberlyn Garcia Consulting Providers: Radha Kelley; Tena Jean Baptiste; Kirk Sawyer Discharge Orders/Prescriptions Prescriptions: New ciprofloxacin HCl 500 mg tablet 500 mg PO DAILY 7 Days Qty: 7 0RF Rx Instructions: On dialysis days, take after treatment Continued clonidine HCl 0.1 mg tablet 0.1 mg PO TID (DME) pen needle, diabetic [Comfort EZ Pen [place]] 31 gauge x 5/16 needle See Rx Instructions .Route Qty: 100 5RF Rx Instructions: 4x/day insulin glargine [Lantus Solostar U-100 Insulin] 100 unit/mL (3 mL) insulin pen 25 unit subcut ONCE Qty: 22.5 1RF Velphoro 500 mg tablet,chewable 500 mg PO QAC aspirin [Adult Aspirin Regimen] 81 mg tablet,delayed release (DR/EC) 81 mg PO QDAY carbamazepine 200 mg tablet 600 mg PO BID Qty: 540 2RF gabapentin 300 mg capsule 300 mg PO BID Qty: 180 2RF Patient Comments: pt reports he does not think it helps trazodone 50 mg tablet 50 mg PO QHS PRN (Reason: insomnia) Qty: 90 2RF cholecalciferol (vitamin D3) 1,000 UNIT capsule 1,000 unit PO TUTHSA Patient Comments: VITAMIN sertraline 100 MG tablet 100 mg PO QHS multivitamin with folic acid 1 TABLET tablet 1 tab PO DAILY calcitriol 0.5 mcg capsule 0.5 mcg PO DAILY fish oil-dha-epa 1 EACH capsule 1 each PO DAILY gemfibrozil 600 mg tablet 600 mg PO BID ergocalciferol (vitamin D2) 1,250 mcg (50,000 unit) capsule 1,250 mcg PO MOWE Patient Comments: takes on Monday, , Monday aripiprazole 2 mg Tablet 2 mg PO QHS losartan 50 mg Tablet 50 mg PO DAILY 30 Days Qty: 30 0RF albuterol sulfate [Ventolin HFA] 90 mcg/actuation HFA aerosol inhaler 1 - 2 puff inhalation Q4H PRN PRN (Reason: Wheezing) Qty: 1 0RF nadolol 40 mg tablet 40 mg PO BID Patient Comments: take with 20mg tablet. total dose = 60mg hydralazine 50 mg tablet 50 mg PO TID rosuvastatin 40 MG tablet 40 mg PO QHS (DME) OneTouch Verio test strips Strip See Rx Instructions .Route Qty: 100 5RF Rx Instructions: TID (DME) blood-glucose meter [OneTouch Verio Reflect] Kit See Rx Instructions .Route Qty: 1 0RF Rx Instructions: As directed pantoprazole 20 mg tablet,delayed release (DR/EC) 40 mg PO DAILY Qty: 90 3RF Cholestyramine Light 4 gram powder 4 g PO QHS Qty: 231 2RF insulin lispro [Admelog SoloStar U-100 Insulin] 100 unit/mL insulin pen 18 unit subcut TID Qty: 60 1RF Referrals / Follow Up: Kimberlyn Garcia MD [Primary Care Provider, Family Practice] - Within 1 Week Disposition Disposition (needs filled in before D/C Order can be placed): Home, Self Care Charges/Coding Visit Charges Inpatient E&M: 09561 Disch Hosp >30min
== END 2025-08-26 12:56 | disposition home or self-care (01) | DRG 463 ==
LOC: ED 11:30 → MS3 13:34
PROVIDERS: Admitting Provider Student in an Organized Health Care Education/Training Program; Emergency Provider Emergency Medicine; PCP Family Medicine; Visit Provider Family Medicine
DX: N12 Tubulo-interstitial nephritis, not specified as acute or chronic (principal); I12.0 Hypertensive chronic kidney disease with stage 5 chronic kidney disease or end stage renal disease; D63.1 Anemia in chronic kidney disease; N18.6 End stage renal disease; E10.22 Type 1 diabetes mellitus with diabetic chronic kidney disease; B96.20 Unspecified Escherichia coli [E. coli] as the cause of diseases classified elsewhere; Z66 Do not resuscitate; F32.A Depression, unspecified; K76.0 Fatty (change of) liver, not elsewhere classified; Z79.4 Long term (current) use of insulin; K21.9 Gastro-esophageal reflux disease without esophagitis; Z99.2 Dependence on renal dialysis; E78.00 Pure hypercholesterolemia, unspecified; F41.9 Anxiety disorder, unspecified; M54.9 Dorsalgia, unspecified; Z79.02 Long term (current) use of antithrombotics/antiplatelets; Z79.899 Other long term (current) drug therapy; Z87.891 Personal history of nicotine dependence; Z79.82 Long term (current) use of aspirin; R31.9 Hematuria, unspecified; Z85.038 Personal history of other malignant neoplasm of large intestine; Z92.21 Personal history of antineoplastic chemotherapy; Z90.49 Acquired absence of other specified parts of digestive tract; N39.0 Urinary tract infection, site not specified; G89.29 Other chronic pain
CPT/HCPCS: 36415; 36591; 74177; 80048; 80076; 81001; 82274; 82962; 83605; 83690; 85025; 85610; 85730; 86850; 86900; 86901; 87086; 87088; 87186; 90937; 97161; 99285; Q9967; A4216; G0257; Q5106

== ENCOUNTER 2025-08-27 08:58 | Emergency (ER) | payer MEDICAID, SELFPAY ==
[2025-08-27 08:58] VITALS: PULSE 62; RESP 17; TEMP 36.6; O2SAT 100; BMI 31.2
[2025-08-27 09:02] VITALS: BP 195/87
--- NOTE | 2025-08-27 09:11 | EX.ED.DYSGE1 ---
HPI History of Present Illness Chief Complaint: Wound Narrative Narrative: Patient 54-year-old female with past medical history end-stage renal disease on dialysis, vertigo, trigeminal neuralgia, hepatitis C, hypercholesteremia, pancreatitis, history of alcohol abuse who presents to the emergency department with the chief complaint of bleeding coming from his fistula. Patient notes that he was at dialysis this morning and noted they could not get the bleeding to stop therefore they sent him here to be further evaluated. Patient denies any blood thinning medications. He states that he did not complete the full course of dialysis. [facility] Medical History Dialysis patient Kidney disease Vascular dialysis catheter in place History of hemodialysis History of renal dialysis Hemodialysis patient Anemia due to chronic blood loss Positive fecal occult blood test Cancer Insulin dependent diabetes mellitus History of renal disease Low iron Easy bruising Wears glasses Arthritis Fatty liver Restless legs Former smoker Leg cramps History of edema History of stress test History of echocardiogram Syncope Hx of vertigo Therapeutic drug monitoring History of colon cancer Trigeminal nerve disorder portacath placement GERD (gastroesophageal reflux disease) High cholesterol Hepatitis C Depressive disorder Obesity Seizure disorder Asthma History of alcohol abuse Pancreatitis Sezary disease Home Medications ?Medication ?Instructions ?Recorded ?Last Taken ?Type cholecalciferol (vitamin D3) 25 1,000 unit PO TUTHSA supplement 10/10/13 08/21/25 History mcg (1,000 unit) capsule sertraline 100 mg tablet 100 mg PO QHS depression 07/18/14 08/21/25 History multivitamin with folic acid 400 1 tab PO DAILY supplement 10/21/14 08/21/25 History mcg tablet rosuvastatin 40 mg tablet 40 mg PO QHS cholesterol 11/24/16 08/21/25 History fish oil-dha-epa 1,200 mg-144 1 each PO DAILY supplement 11/14/20 08/21/25 History mg-216 mg capsule albuterol sulfate 90 mcg/actuation 1 - 2 puff inhalation Q4H PRN PRN 10/16/23 Unknown Rx aerosol inhaler (Ventolin HFA) Wheezing #1 inh gemfibrozil 600 mg tablet 600 mg PO BID pancreatitis 12/08/23 08/21/25 History prevention nadolol 40 mg tablet 40 mg PO BID heart 12/18/23 08/20/25 History calcitriol 0.5 mcg capsule 0.5 mcg PO DAILY bone health 05/30/24 08/21/25 History clonidine HCl 0.1 mg tablet 0.1 mg PO TID hypertension 06/12/24 07/23/24 History ergocalciferol (vitamin D2) 1,250 1,250 mcg PO MOWEFR VITAMIN 07/03/24 08/21/25 History mcg (50,000 unit) capsule aripiprazole 2 mg tablet 2 mg PO QHS mental health 07/04/24 08/21/25 History losartan 50 mg tablet 50 mg PO DAILY blood pressure 30 07/10/24 08/20/25 Rx days #30 tabs blood sugar diagnostic (OneTouch #100 ea 10/31/24 Unknown Rx Verio test strips) blood-glucose meter (OneTouch #1 ea 10/31/24 Unknown Rx Verio Reflect kit) pantoprazole 20 mg tablet,delayed 40 mg (2 x 20 mg) PO DAILY reflux 11/19/24 08/21/25 Rx release #90 TABLETS insulin glargine 100 unit/mL (3 25 unit (0.25 mL) subcut ONCE 12/18/24 Unknown Rx mL) subcutaneous pen (Lantus diabetes #22.5 mL Solostar U-100 Insulin) pen needle, diabetic 31 gauge x #100 ea 12/18/24 Unknown Rx 01/10 (Comfort EZ Pen Cordova) sucroferric oxyhydroxide 500 mg 500 mg PO QAC for CKD 05/07/25 08/21/25 History chewable tablet (Velphoro) hydralazine 50 mg tablet 50 mg PO TID blood pressure 06/04/25 08/20/25 History aspirin 81 mg tablet,delayed 81 mg PO QDAY 06/18/25 08/21/25 History release (Adult Aspirin Regimen) gabapentin 300 mg capsule 300 mg PO BID nerve pain #180 caps 06/30/25 Unknown Rx trazodone 50 mg tablet 50 mg PO QHS PRN insomnia #90 tabs 06/30/25 08/21/25 Rx cholestyramine 4 gram oral powder 4 g PO QHS MD ordered #231 GMS 07/29/25 Unknown Rx (Cholestyramine Light) insulin lispro 100 unit/mL 18 unit (0.18 mL) subcut TID #60 mL 08/15/25 Unknown Rx subcutaneous pen (Admelog SoloStar U-100 Insulin lispro) ciprofloxacin HCl 500 mg tablet 500 mg PO DAILY 7 days #7 tabs 08/26/25 Unknown Rx carbamazepine 200 mg tablet 400 mg PO Q8H seizures 08/27/25 Unknown History Allergy/AdvReac Type Severity Reaction Status Date / Time doxazosin (From Cardura) Allergy Severe Bleeding Verified 08/27/25 09:00 erythromycin base Allergy Severe Hives Verified 08/27/25 09:00 loratadine (From Claritin) Allergy Severe Rash Verified 08/27/25 09:00 oxycodone AdvReac Severe Other Verified 08/27/25 09:00 amlodipine AdvReac nausea/diar Verified 08/27/25 09:00 darryl/dizzin ess Family History Grandmother Cervical cancer Diabetes Hypertension Trigeminal neuralgia Mother Uterine cancer Arthritis Diabetes Hypertension Grandfather Heart disease Arthritis Diabetes Hypertension Unknown Diabetes Arthritis Father Arthritis Diabetes Hypertension Sister Diabetes Hypertension Uncle CVA (cerebral vascular accident) Aunt Cerebral aneurysm Surgical History Hx of esophagogastroduodenoscopy Hx of appendectomy H/O left hemicolectomy Social History Smoking Status: Former smoker Tobacco: How many years used: 20 how long ago did patient quit smoking: quit 2003 second hand exposure: No alcohol intake: former details: quit 2003 substance use type: former substance user Date of last use: Used Marijuana since he was a teenager ROS ROS ED ROS Narrative Constitutional: Denies fevers, chills, lightheadedness Neurological: Denies numbness or tingling Musculoskeletal: Denies back pain Skin: Complains of bleeding from fistula as noted above EXAM Physical Exam Narrative Exam Narrative: General: Patient lying in bed rest comfortably did not appear to be in acute distress Head: Atraumatic, normocephalic Eyes: PERRL bilaterally, EOMI bilaterally, no conjunctival injection noted Neck: Soft, supple, trachea midline Cardiovascular: Regular rate Neurological: Patient followed commands and that he was at [facility] years 2024 Skin: Compression dressing was taken down he has no active bleeding noted at this point time Const Vital Signs: 08/27/25 08:58 12/31/25 09:02 08/27/25 09:22 Temperature 97.9 F Temperature Source Oral Pulse Rate 62 Respiratory Rate 17 Blood Pressure 195/87 H 190/80 H Blood Pressure Mean 123 116 Pulse Ox 100 Oxygen Delivery Method Room Air 08/27/25 10:09 Temperature Temperature Source Pulse Rate 60 Respiratory Rate 18 Blood Pressure 201/79 H Blood Pressure Mean 119 Pulse Ox 100 Oxygen Delivery Method Room Air MDM MDM MDM Narrative Medical decision making narrative: Patient is a 54-year-old male who presented to the emergency department with a concern for bleeding fistula. The differential diagnose includes but not limited to bleeding fistula, bleeding that has resolved. Once again the bleeding has resolved he will be observed here in the emergency department. Patient states that he did not take his blood pressure medication this morning therefore these were ordered here in the emergency department. Patient was concerned about his hemoglobin his hemoglobin is stable at 7.9. Patient had no further bleeding here in the emergency department and he states that his blood pressure chronically runs high. We called the dialysis center to attempt to get the patient back to finish his dialysis session however per the center they state that this is an insurance issue and are unable to hooking back up to the machine today. They said they will get him in on Monday. Patient was advised to return with worsening symptoms or concerns. He is agreeable to plan all course concerns answered Lab Data Labs: Laboratory Results - last 24 hr 08/27/25 08/27/25 09:39 10:36 Hgb 7.9 L Hct 22.2 L POC Glucose 128 H Discharge Plan Triage Chief Complaint: Wound ED Provider: Kaden Mooney Dx/Rx/DC Orders Clinical Impression: Hemorrhage of arteriovenous fistula, Hypertension, Uncontrolled hypertension, Type 1 diabetes mellitus with diabetic chronic kidney disease Prescriptions: No Action clonidine HCl 0.1 mg tablet 0.1 mg PO TID (DME) pen needle, diabetic [Comfort EZ Pen Cordova] 31 gauge x 5/16 needle See Rx Instructions .Route Qty: 100 5RF Rx Instructions: 4x/day insulin glargine [Lantus Solostar U-100 Insulin] 100 unit/mL (3 mL) insulin pen 25 unit subcut ONCE Qty: 22.5 1RF Velphoro 500 mg tablet,chewable 500 mg PO QAC aspirin [Adult Aspirin Regimen] 81 mg tablet,delayed release (DR/EC) 81 mg PO QDAY gabapentin 300 mg capsule 300 mg PO BID Qty: 180 2RF Patient Comments: pt reports he does not think it helps trazodone 50 mg tablet 50 mg PO QHS PRN (Reason: insomnia) Qty: 90 2RF cholecalciferol (vitamin D3) 1,000 UNIT capsule 1,000 unit PO TUTHSA Patient Comments: VITAMIN sertraline 100 MG tablet 100 mg PO QHS multivitamin with folic acid 1 TABLET tablet 1 tab PO DAILY calcitriol 0.5 mcg capsule 0.5 mcg PO DAILY fish oil-dha-epa 1 EACH capsule 1 each PO DAILY gemfibrozil 600 mg tablet 600 mg PO BID ergocalciferol (vitamin D2) 1,250 mcg (50,000 unit) capsule 1,250 mcg PO MOWEFR Patient Comments: takes on Monday, , Monday aripiprazole 2 mg Tablet 2 mg PO QHS losartan 50 mg Tablet 50 mg PO DAILY 30 Days Qty: 30 0RF ciprofloxacin HCl 500 mg tablet 500 mg PO DAILY 7 Days Qty: 7 0RF Rx Instructions: On dialysis days, take after treatment carbamazepine 200 mg tablet 400 mg PO Q8H albuterol sulfate [Ventolin HFA] 90 mcg/actuation HFA aerosol inhaler 1 - 2 puff inhalation Q4H PRN PRN (Reason: Wheezing) Qty: 1 0RF nadolol 40 mg tablet 40 mg PO BID Patient Comments: take with 20mg tablet. total dose = 60mg hydralazine 50 mg tablet 50 mg PO TID rosuvastatin 40 MG tablet 40 mg PO QHS (DME) OneTouch Verio test strips Strip See Rx Instructions .Route Qty: 100 5RF Rx Instructions: TID (DME) blood-glucose meter [OneTouch Verio Reflect] Kit See Rx Instructions .Route Qty: 1 0RF Rx Instructions: As directed pantoprazole 20 mg tablet,delayed release (DR/EC) 40 mg PO DAILY Qty: 90 3RF Cholestyramine Light 4 gram powder 4 g PO QHS Qty: 231 2RF insulin lispro [Admelog SoloStar U-100 Insulin] 100 unit/mL insulin pen 18 unit subcut TID Qty: 60 1RF Primary Care Provider: Kimberyln Garcia Referrals: Kimberlyn Garcia MD [Primary Care Provider, Family Practice] Activity Restrictions/Additional Instructions: Take your blood pressure medications as prescribed. Follow-up with your doctors and any outpatient setting. Dialysis is likely to get you in on Monday to make up for your unfinished session. Your hemoglobin is stable that was checked today. Print Language: Lithuanian Disposition Disposition: Home, Self Care
[2025-08-27 09:22] VITALS: BP 190/80
[2025-08-27 10:09] VITALS: BP 201/79; PULSE 60; RESP 18; O2SAT 100
[2025-08-27 10:43] LABS: Hematocrit 22.2 % (40-54); Hemoglobin 7.9 g/dL (13.0-16.5)
[2025-08-27 11:35] VITALS: BP 130/80; PULSE 64; RESP 16; TEMP 36.6; O2SAT 100
== END 2025-08-27 11:45 | disposition home or self-care (01) ==
PROVIDERS: Emergency Provider Emergency Medicine; PCP Family Medicine; Visit Provider Emergency Medicine
DX: T82.838A Hemorrhage due to vascular prosthetic devices, implants and grafts, initial encounter (principal); I12.0 Hypertensive chronic kidney disease with stage 5 chronic kidney disease or end stage renal disease; N18.6 End stage renal disease; E10.22 Type 1 diabetes mellitus with diabetic chronic kidney disease; Z79.4 Long term (current) use of insulin; Z87.891 Personal history of nicotine dependence; Z95.828 Presence of other vascular implants and grafts; Z99.2 Dependence on renal dialysis
CPT/HCPCS: 36591; 82962; 85014; 85018; 96374; 99285; A4216